=== PATIENT | female | born 1960 | race Caucasian/White ===

== ENCOUNTER → 2020-07-25 16:35 | Outpatient (CLI) | payer OTHER, SELFPAY ==
[2020-07-25 17:42] LABS: Hematocrit 40.4 % (37-47); Mean Corp Hgb Conc 32.2 g/dL (32-36); Mean Corpuscular Hgb 27.7 pg (27.0-32.0); Mean Platelet Vol. 9.7 fl (6.2-12.0); Platelet Count 213 K/mm3 (150-450); RBC Distribution Width CV 14.7 % (11.6-14.6); RBC Distribution Width SD 46.1 fl (35.1-43.9); White Blood Count 10.1 K/mm3 (4.4-11.0)
[2020-07-25 18:14] LABS: Erythrocyte Sedimentation Rate 41 mm/hr (0-30)
== END ==
PROVIDERS: PCP General Practice; Referring Provider Ophthalmology; Visit Provider Ophthalmology
DX: H49.22 Sixth [abducent] nerve palsy, left eye (principal)
CPT/HCPCS: 36415; 85027; 85652; 86140

== ENCOUNTER → 2020-08-21 13:53 | Outpatient (CLI) | payer OTHER, SELFPAY ==
[2020-08-21 15:47] LABS: Erythrocyte Sedimentation Rate 13 mm/hr (0-30)
== END ==
PROVIDERS: PCP General Practice; Referring Provider Ophthalmology; Visit Provider Ophthalmology
DX: H49.22 Sixth [abducent] nerve palsy, left eye (principal)
CPT/HCPCS: 36415; 85652; 86140

== ENCOUNTER → 2024-10-26 05:00 | Outpatient (REF) | payer MEDICAID, SELFPAY ==
[2024-10-26 08:44] LABS: Cholesterol 87 mg/dL (200); High Density Lipoprotein 44 mg/dL; Triglycerides 100 mg/dL; Very Low Density Lipoprotein 20 mg/dL (5-40)
== END ==
LOC: OLS.ACH 05:00
PROVIDERS: PCP General Practice; Visit Provider Internal Medicine
DX: E11.622 Type 2 diabetes mellitus with other skin ulcer (principal); L97.811 Non-pressure chronic ulcer of other part of right lower leg limited to breakdown of skin
CPT/HCPCS: 36415; 80061

== ENCOUNTER → 2024-10-30 02:00 | Outpatient (REF) | payer MEDICAID, SELFPAY ==
[2024-10-30 10:32] LABS: Microalbumin,Random Urine 89.4 mg/L (NO RANGE EST.); Microalbumin:Creatinine Ratio 214.4 mg/g CRE (<30 mg/g CRE)
== END ==
LOC: OLS.ACH 02:00
PROVIDERS: PCP General Practice; Visit Provider Internal Medicine
DX: L97.811 Non-pressure chronic ulcer of other part of right lower leg limited to breakdown of skin (principal); E11.622 Type 2 diabetes mellitus with other skin ulcer
CPT/HCPCS: 82043; 82570

== ENCOUNTER → 2024-11-03 | Outpatient (REF) | payer MEDICAID, SELFPAY ==
[2024-11-03 08:20] LABS: Hematocrit 29.4 % (37-47); Hemoglobin 8.9 g/dL (12.0-15.0); Mean Corp Hgb Conc 30.3 g/dL (32-36); Mean Corpuscular Hgb 24.3 pg (27.0-32.0); Mean Corpuscular Volume 80.3 fL (81-99); Mean Platelet Vol. 8.8 fl (6.2-12.0); Platelet Count 317 K/mm3 (150-450); RBC Distribution Width CV 17.9 % (11.6-14.6); RBC Distribution Width SD 53.3 fl (35.1-43.9); Red Blood Count 3.66 M/mm3 (4.2-5.4); White Blood Count 11.1 K/mm3 (4.4-11.0)
[2024-11-03 08:37] LABS: ALB/GLOB Ratio 0.7 RATIO (0.9-2.4); AST(SGOT) 26 U/L (<=31); Alanine Aminotransfer ALT/SGPT 16 U/L (<=34); Albumin, Serum 3.1 g/dL (3.4-4.8); Alkaline Phosphatase 189 U/L (35-104); Anion Gap 10 (5-15); BUN 29 mg/dL (4-19); BUN/Creat Ratio 37.8 RATIO (10-20); Calcium 9.2 mg/dL (7.6-11.0); Carbon Dioxide 26.3 mmol/L (22.0-29.0); Chloride 100 mmol/L (96-108); Creatinine, Serum 0.76 mg/dL (0.70-1.20); EST Glomerular Filtration Rate 87 (>60); Globulin 4.3 g/dL (2.2-4.2); Glucose 147 mg/dL (70-99); Potassium 4.5 mmol/L (3.3-5.1); Protein, Total 7.3 g/dL (5.9-8.4); Sodium Level 136 mmol/L (133-145); Total Bilirubin 0.23 mg/dL (0.00-1.30)
== END | disposition home or self-care (01) ==
LOC: OLS.ACH2 05:00
PROVIDERS: PCP General Practice; Visit Provider Internal Medicine
DX: E11.622 Type 2 diabetes mellitus with other skin ulcer (principal); D64.9 Anemia, unspecified; I11.0 Hypertensive heart disease with heart failure; I50.9 Heart failure, unspecified; I73.9 Peripheral vascular disease, unspecified
CPT/HCPCS: 36415; 80053; 85027

== ENCOUNTER → 2024-11-06 | Outpatient (REF) | payer MEDICAID, SELFPAY ==
[2024-11-06 09:18] LABS: Hematocrit 30.7 % (37-47); Hemoglobin 9.4 g/dL (12.0-15.0); Mean Corp Hgb Conc 30.6 g/dL (32-36); Mean Corpuscular Hgb 24.7 pg (27.0-32.0); Mean Corpuscular Volume 80.6 fL (81-99); Mean Platelet Vol. 8.8 fl (6.2-12.0); Platelet Count 290 K/mm3 (150-450); RBC Distribution Width CV 18.1 % (11.6-14.6); RBC Distribution Width SD 53.2 fl (35.1-43.9); Red Blood Count 3.81 M/mm3 (4.2-5.4); White Blood Count 9.9 K/mm3 (4.4-11.0)
== END | disposition home or self-care (01) ==
LOC: OLS.ACH2 05:00
PROVIDERS: PCP General Practice; Visit Provider Internal Medicine
DX: L97.811 Non-pressure chronic ulcer of other part of right lower leg limited to breakdown of skin (principal)
CPT/HCPCS: 36415; 85027

== ENCOUNTER → 2024-12-25 | Outpatient (REF) | payer OTHER, SELFPAY ==
[2024-12-25 09:26] LABS: Absolute Lymphocyte Count 1.38 X10^3/uL (0.83-4.51); Basophil# 0.09 X10^3/uL; Eosinophil# 0.39 X10^3/uL; Eosinophils% 4.4 % (0-5); Hematocrit 30.5 % (37-47); Hemoglobin 9.6 g/dL (12.0-15.0); Lymphocyte # 1.38 X10^3/ul (0.83-4.51); Lymphocyte % 15.7 % (19-41); Mean Corp Hgb Conc 31.5 g/dL (32-36); Mean Corpuscular Hgb 24.7 pg (27.0-32.0); Mean Corpuscular Volume 78.4 fL (81-99); Mean Platelet Vol. 9.2 fl (6.2-12.0); Monocyte# 0.84 X10^3/uL; Monocyte% 9.6 % (0-10); NRBC Flagged by Analyzer 0 % (0-5); Neutrophil # 6.04 X10^3/uL (2.7-7.7); Platelet Count 260 K/mm3 (150-450); RBC Distribution Width CV 17.8 % (11.6-14.6); RBC Distribution Width SD 50.9 fl (35.1-43.9); Red Blood Count 3.89 M/mm3 (4.2-5.4); White Blood Count 8.8 K/mm3 (4.4-11.0)
[2024-12-25 09:42] LABS: Erythrocyte Sedimentation Rate 74 mm/hr (0-30)
[2024-12-25 10:05] LABS: Alanine Aminotransfer ALT/SGPT 12 U/L (<=34); Creatinine, Serum 0.93 mg/dL (0.70-1.20); EST Glomerular Filtration Rate 69 (>60)
[2024-12-25 10:06] LABS: Vancomycin, Trough Level 33.5 ug/mL (5.0-15.0)
== END ==
LOC: OLS.ACH 05:00
PROVIDERS: PCP General Practice; Visit Provider Internal Medicine
DX: M86.671 Other chronic osteomyelitis, right ankle and foot (principal); E11.622 Type 2 diabetes mellitus with other skin ulcer; D64.9 Anemia, unspecified; L98.499 Non-pressure chronic ulcer of skin of other sites with unspecified severity; E11.69 Type 2 diabetes mellitus with other specified complication
CPT/HCPCS: 36415; 80202; 82565; 84460; 85025; 85652; 86140

== ENCOUNTER → 2024-12-27 | Outpatient (REF) | payer OTHER, SELFPAY ==
[2024-12-27 09:12] LABS: Absolute Lymphocyte Count 1.38 X10^3/uL (0.83-4.51); Absolute Neutrophil Count 7.6 X10^3/uL (2.0-7.7); Basophil# 0.08 X10^3/uL; Basophil% 0.7 % (0-1); Eosinophil# 0.49 X10^3/uL; Eosinophils% 4.6 % (0-5); Hematocrit 29.4 % (37-47); Hemoglobin 9.2 g/dL (12.0-15.0); Lymphocyte # 1.38 X10^3/ul (0.83-4.51); Lymphocyte % 12.9 % (19-41); Mean Corp Hgb Conc 31.3 g/dL (32-36); Mean Corpuscular Hgb 24.9 pg (27.0-32.0); Mean Corpuscular Volume 79.5 fL (81-99); Mean Platelet Vol. 9.2 fl (6.2-12.0); Monocyte# 1.17 X10^3/uL; Monocyte% 10.9 % (0-10); NRBC Flagged by Analyzer 0 % (0-5); Neutrophil # 7.55 X10^3/uL (2.7-7.7); Neutrophil % 70.4 % (47-70); Platelet Count 223 K/mm3 (150-450); RBC Distribution Width CV 17.9 % (11.6-14.6); RBC Distribution Width SD 52.1 fl (35.1-43.9); White Blood Count 10.7 K/mm3 (4.4-11.0)
[2024-12-27 09:35] LABS: Anion Gap 9 (5-15); BUN 21 mg/dL (4-19); BUN/Creat Ratio 29.5 RATIO (10-20); Calcium,Total 8.8 mg/dL (7.6-11.0); Carbon Dioxide 23.8 mmol/L (21.0-32.0); Chloride 103 mmol/L (98-108); Creatinine, Serum 0.72 mg/dL (0.70-1.20); EST Glomerular Filtration Rate 93 (>60); Glucose 90 mg/dL (70-99); Potassium 3.9 mmol/L (3.3-5.1); Sodium Level 136 mmol/L (133-145)
[2024-12-27 09:46] LABS: Vancomycin, Random Level 15.5 ug/mL (0.0-15.0)
== END ==
LOC: OLS.ACH 05:00
PROVIDERS: PCP General Practice; Visit Provider Internal Medicine
DX: E11.622 Type 2 diabetes mellitus with other skin ulcer (principal); D64.9 Anemia, unspecified
CPT/HCPCS: 36415; 80048; 80202; 85025

== ENCOUNTER → 2025-01-01 | Outpatient (REF) | payer OTHER, SELFPAY ==
[2025-01-01 09:00] LABS: Erythrocyte Sedimentation Rate 67 mm/hr (0-30)
[2025-01-01 09:02] LABS: Absolute Lymphocyte Count 1.31 X10^3/uL (0.83-4.51); Absolute Neutrophil Count 6.3 X10^3/uL (2.0-7.7); Basophil# 0.05 X10^3/uL; Basophil% 0.5 % (0-1); Eosinophil# 0.48 X10^3/uL; Eosinophils% 5.2 % (0-5); Hematocrit 28.8 % (37-47); Lymphocyte # 1.31 X10^3/ul (0.83-4.51); Lymphocyte % 14.3 % (19-41); Mean Corp Hgb Conc 31.3 g/dL (32-36); Mean Corpuscular Hgb 25.1 pg (27.0-32.0); Mean Corpuscular Volume 80.2 fL (81-99); Mean Platelet Vol. 9.4 fl (6.2-12.0); Monocyte# 0.97 X10^3/uL; Monocyte% 10.6 % (0-10); NRBC Flagged by Analyzer 0 % (0-5); Neutrophil # 6.32 X10^3/uL (2.7-7.7); Neutrophil % 69.1 % (47-70); Platelet Count 228 K/mm3 (150-450); RBC Distribution Width CV 19.1 % (11.6-14.6); RBC Distribution Width SD 54.5 fl (35.1-43.9); Red Blood Count 3.59 M/mm3 (4.2-5.4); White Blood Count 9.2 K/mm3 (4.4-11.0)
[2025-01-01 09:14] LABS: Alanine Aminotransfer ALT/SGPT 11 U/L (<=34); Creatinine, Serum 0.71 mg/dL (0.70-1.20); EST Glomerular Filtration Rate 94 (>60)
[2025-01-01 09:40] LABS: Vancomycin, Trough Level 17.1 ug/mL (5.0-15.0)
== END ==
LOC: OLS.ACH 05:00
PROVIDERS: PCP General Practice; Visit Provider Internal Medicine
DX: Z16.22 Resistance to vancomycin related antibiotics (principal)
CPT/HCPCS: 36415; 80202; 82565; 84460; 85025; 85652; 86140

== ENCOUNTER → 2025-01-08 | Outpatient (REF) | payer OTHER, SELFPAY ==
[2025-01-08 10:10] LABS: Vancomycin, Trough Level 34.1 ug/mL (5.0-15.0)
[2025-01-08 10:27] LABS: Alanine Aminotransfer ALT/SGPT 11 U/L (<=34); Creatinine, Serum 0.67 mg/dL (0.70-1.20); EST Glomerular Filtration Rate 98 (>60)
[2025-01-08 11:43] LABS: Erythrocyte Sedimentation Rate 60 mm/hr (0-30)
[2025-01-08 11:47] LABS: Absolute Lymphocyte Count 1.04 X10^3/uL (0.83-4.51); Absolute Neutrophil Count 8.1 X10^3/uL (2.0-7.7); Basophil# 0.03 X10^3/uL; Basophil% 0.3 % (0-1); Eosinophil# 1.08 X10^3/uL; Eosinophils% 9.5 % (0-5); Hemoglobin 8.8 g/dL (12.0-15.0); Lymphocyte # 1.04 X10^3/ul (0.83-4.51); Lymphocyte % 9.2 % (19-41); Mean Corp Hgb Conc 31.4 g/dL (32-36); Mean Corpuscular Volume 79.5 fL (81-99); Mean Platelet Vol. 9.2 fl (6.2-12.0); Monocyte# 1.05 X10^3/uL; Monocyte% 9.3 % (0-10); NRBC Flagged by Analyzer 0 % (0-5); Neutrophil # 8.08 X10^3/uL (2.7-7.7); Neutrophil % 71.3 % (47-70); POSITIVE MORPHOLOGY YES; Platelet Count 231 K/mm3 (150-450); RBC Distribution Width CV 20.3 % (11.6-14.6); RBC Distribution Width SD 58.6 fl (35.1-43.9); Red Blood Count 3.52 M/mm3 (4.2-5.4); White Blood Count 11.3 K/mm3 (4.4-11.0)
[2025-01-08 11:58] LABS: Differential Indicated SCAN CRITERIA MET
[2025-01-08 13:39] LABS: Anisocytosis 1+; Platelet Estimate A (ADEQ); Polychromasia 1+
== END ==
LOC: OLS.ACH 05:00
PROVIDERS: PCP General Practice; Visit Provider Internal Medicine
DX: E11.622 Type 2 diabetes mellitus with other skin ulcer (principal); D64.9 Anemia, unspecified; M86.171 Other acute osteomyelitis, right ankle and foot
CPT/HCPCS: 36415; 80202; 82565; 84460; 85025; 85652; 86140

== ENCOUNTER → 2025-01-09 | Outpatient (REF) | payer OTHER, SELFPAY ==
[2025-01-09 09:12] LABS: Vancomycin, Trough Level 18.9 ug/mL (5.0-15.0)
== END ==
LOC: OLS.ACH 05:00
PROVIDERS: PCP General Practice; Visit Provider Internal Medicine
DX: E11.22 Type 2 diabetes mellitus with diabetic chronic kidney disease (principal); D64.9 Anemia, unspecified; B95.62 Methicillin resistant Staphylococcus aureus infection as the cause of diseases classified elsewhere; N18.9 Chronic kidney disease, unspecified
CPT/HCPCS: 36415; 80202

== ENCOUNTER → 2025-01-15 | Outpatient (REF) | payer OTHER, SELFPAY ==
[2025-01-15 10:11] LABS: Erythrocyte Sedimentation Rate 74 mm/hr (0-30); Vancomycin, Trough Level 18.7 ug/mL (5.0-15.0)
[2025-01-15 10:13] LABS: Absolute Lymphocyte Count 0.84 X10^3/uL (0.83-4.51); Absolute Neutrophil Count 6.3 X10^3/uL (2.0-7.7); Basophil# 0.04 X10^3/uL; Basophil% 0.4 % (0-1); Eosinophil# 1.04 X10^3/uL; Eosinophils% 11.5 % (0-5); Hematocrit 27.3 % (37-47); Hemoglobin 8.7 g/dL (12.0-15.0); Lymphocyte # 0.84 X10^3/ul (0.83-4.51); Lymphocyte % 9.3 % (19-41); Mean Corp Hgb Conc 31.9 g/dL (32-36); Mean Corpuscular Hgb 25.9 pg (27.0-32.0); Mean Corpuscular Volume 81.3 fL (81-99); Mean Platelet Vol. 9.7 fl (6.2-12.0); Monocyte# 0.83 X10^3/uL; Monocyte% 9.2 % (0-10); NRBC Flagged by Analyzer 0 % (0-5); Neutrophil # 6.25 X10^3/uL (2.7-7.7); Neutrophil % 69.2 % (47-70); POSITIVE MORPHOLOGY YES; Platelet Count 229 K/mm3 (150-450); RBC Distribution Width CV 21.2 % (11.6-14.6); RBC Distribution Width SD 62.5 fl (35.1-43.9); Red Blood Count 3.36 M/mm3 (4.2-5.4)
[2025-01-15 10:14] LABS: Differential Indicated SCAN CRITERIA MET
[2025-01-15 10:19] LABS: Alanine Aminotransfer ALT/SGPT 11 U/L (<=34); Creatinine, Serum 0.72 mg/dL (0.70-1.20); EST Glomerular Filtration Rate 94 (>60)
[2025-01-15 10:38] LABS: Anisocytosis 1+
== END ==
LOC: OLS.ACH 05:00
PROVIDERS: PCP General Practice; Visit Provider Internal Medicine
DX: E11.69 Type 2 diabetes mellitus with other specified complication (principal); E11.622 Type 2 diabetes mellitus with other skin ulcer; M86.671 Other chronic osteomyelitis, right ankle and foot; D64.9 Anemia, unspecified; Z16.22 Resistance to vancomycin related antibiotics
CPT/HCPCS: 36415; 80202; 82565; 84460; 85025; 85652; 86140

== ENCOUNTER → 2025-01-22 | Outpatient (REF) | payer OTHER, SELFPAY ==
[2025-01-22 08:51] LABS: Vancomycin, Trough Level 19.3 ug/mL (5.0-15.0)
[2025-01-22 08:53] LABS: Alanine Aminotransfer ALT/SGPT 10 U/L (<=34); Creatinine, Serum 0.65 mg/dL (0.70-1.20); EST Glomerular Filtration Rate 98 (>60)
[2025-01-22 08:56] LABS: Erythrocyte Sedimentation Rate 66 mm/hr (0-30)
[2025-01-22 08:59] LABS: Absolute Lymphocyte Count 0.91 X10^3/uL (0.83-4.51); Absolute Neutrophil Count 8.3 X10^3/uL (2.0-7.7); Basophil# 0.04 X10^3/uL; Basophil% 0.4 % (0-1); Eosinophil# 0.69 X10^3/uL; Eosinophils% 6.1 % (0-5); Hemoglobin 8.6 g/dL (12.0-15.0); Lymphocyte # 0.91 X10^3/ul (0.83-4.51); Lymphocyte % 8.1 % (19-41); Mean Corp Hgb Conc 31.9 g/dL (32-36); Mean Corpuscular Volume 81.6 fL (81-99); Mean Platelet Vol. 9.6 fl (6.2-12.0); Monocyte# 1.29 X10^3/uL; Monocyte% 11.4 % (0-10); NRBC Flagged by Analyzer 0 % (0-5); Neutrophil # 8.28 X10^3/uL (2.7-7.7); Neutrophil % 73.5 % (47-70); POSITIVE MORPHOLOGY YES; Platelet Count 242 K/mm3 (150-450); RBC Distribution Width CV 21.7 % (11.6-14.6); RBC Distribution Width SD 64.4 fl (35.1-43.9); Red Blood Count 3.31 M/mm3 (4.2-5.4); White Blood Count 11.3 K/mm3 (4.4-11.0)
[2025-01-22 09:12] LABS: Differential Indicated SCAN CRITERIA MET
[2025-01-22 10:11] LABS: Anisocytosis 1+
== END ==
LOC: OLS.ACH 05:00
PROVIDERS: PCP General Practice; Visit Provider Internal Medicine
DX: M86.671 Other chronic osteomyelitis, right ankle and foot (principal); E11.622 Type 2 diabetes mellitus with other skin ulcer; D64.9 Anemia, unspecified; Z16.22 Resistance to vancomycin related antibiotics
CPT/HCPCS: 36415; 80202; 82565; 84460; 85025; 85652; 86140

== ENCOUNTER → 2025-01-30 | Outpatient (REF) | payer OTHER, SELFPAY ==
[2025-01-30 09:19] LABS: Vancomycin, Trough Level 18.6 ug/mL (5.0-15.0)
[2025-01-30 09:22] LABS: ALB/GLOB Ratio 0.8 RATIO (0.9-2.4); AST(SGOT) 27 U/L (<=31); Alanine Aminotransfer ALT/SGPT 10 U/L (<=34); Albumin, Serum 2.8 g/dL (3.4-4.8); Alkaline Phosphatase 214 U/L (35-104); Anion Gap 9 (5-15); BUN 23 mg/dL (4-19); BUN/Creat Ratio 40.3 RATIO (10-20); Calcium,Total 8.7 mg/dL (7.6-11.0); Carbon Dioxide 24.9 mmol/L (21.0-32.0); Chloride 104 mmol/L (98-108); Creatinine, Serum 0.56 mg/dL (0.70-1.20); EST Glomerular Filtration Rate 102 (>60); Globulin 3.6 g/dL (2.2-4.2); Glucose 102 mg/dL (70-99); Potassium 3.6 mmol/L (3.3-5.1); Protein, Total 6.4 g/dL (5.9-8.4); Sodium Level 138 mmol/L (133-145); Total Bilirubin 0.27 mg/dL (0.00-1.30)
[2025-01-30 09:38] LABS: Absolute Lymphocyte Count 0.96 X10^3/uL (0.83-4.51); Absolute Neutrophil Count 7.1 X10^3/uL (2.0-7.7); Basophil# 0.01 X10^3/uL; Basophil% 0.1 % (0-1); Eosinophil# 0.61 X10^3/uL; Eosinophils% 6.1 % (0-5); Hemoglobin 9.5 g/dL (12.0-15.0); Lymphocyte # 0.96 X10^3/ul (0.83-4.51); Lymphocyte % 9.6 % (19-41); Mean Corp Hgb Conc 31.7 g/dL (32-36); Mean Corpuscular Hgb 26.1 pg (27.0-32.0); Mean Corpuscular Volume 82.4 fL (81-99); Mean Platelet Vol. 9.6 fl (6.2-12.0); NRBC Flagged by Analyzer 0 % (0-5); Neutrophil # 7.07 X10^3/uL (2.7-7.7); Neutrophil % 70.8 % (47-70); POSITIVE MORPHOLOGY YES; Platelet Count 229 K/mm3 (150-450); RBC Distribution Width CV 21.5 % (11.6-14.6); RBC Distribution Width SD 64.1 fl (35.1-43.9); Red Blood Count 3.64 M/mm3 (4.2-5.4)
[2025-01-30 09:39] LABS: Erythrocyte Sedimentation Rate 72 mm/hr (0-30)
[2025-01-30 09:43] LABS: Differential Indicated SCAN CRITERIA MET
[2025-01-30 11:51] LABS: Anisocytosis 1+; Platelet Estimate A (ADEQ); Polychromasia 1+
== END ==
LOC: OLS.ACH 05:00
PROVIDERS: PCP General Practice; Visit Provider Internal Medicine
DX: D64.9 Anemia, unspecified (principal); E11.622 Type 2 diabetes mellitus with other skin ulcer; M86.671 Other chronic osteomyelitis, right ankle and foot; E11.22 Type 2 diabetes mellitus with diabetic chronic kidney disease; I13.0 Hypertensive heart and chronic kidney disease with heart failure and stage 1 through stage 4 chronic kidney disease, or unspecified chronic kidney disease; I50.9 Heart failure, unspecified; N18.9 Chronic kidney disease, unspecified
CPT/HCPCS: 36415; 80053; 80202; 85025; 85652; 86140

== ENCOUNTER → 2025-02-13 | Outpatient (REF) | payer OTHER, SELFPAY ==
--- OUTSIDE RECORDS SUMMARY | 2025-02-13 04:33 | XMS RPT_ITS | CCD ---
Author Organization [facility] Care Team Providers Care Brokerage Coordinator Name Role Phone Rick Foster Unavailable Unavailable PROVIDER, UNKNOWN Unavailable Unavailable Alvina Chang Unavailable Unavailable PROVIDER, UNKNOWN Unavailable Unavailable PROVIDER, UNKNOWN Unavailable Unavailable Alvina Chang Unavailable Unavailable ALVINA SULLIVAN Referring Unavailable ALVINA SULLIVAN Primary Care Unavailable Unavailable Primary Care Provider Alvina Mccormick Unavailable Unavailable Unavailable Alvina Sullivan Primary Care Provider [phone] Unavailable Unavailable Alvina Sullivan Primary Care Provider Nate, Dr. Alvina Edward Referring Unavailabl e Nate, Dr. Alvina Edward Primary Care Unavailabl e Lani, Dr. Dyson Attending Unavail able Nate, Dr. Alvina Edward Referring Unavailabl e Nate, Dr. Alvina Edward Primary Care Unavailabl e Lani, Dr. Dyson Attending Unavail able Lani, Dr. Dyson Attending Unavail able Lani, Dr. Dyson Referring Unavail able Nate, Dr. Alvina Edward Primary Care Unavailabl e Nilsa Hearn Referring Unavailable Nate, Dr. Alvina Edward Primary Care Unavailabl e Tho, Ms. Gertrude Key Attending Unavailable Nilsa Hearn Attending Unavailable Nate, Dr. Alvina Edward Primary Care Unavailabl e Nate, Dr. Alvina Edward Referring Unavailabl e Nate, Dr. Alvina Edward Primary Care Unavailabl e Nate, Dr. Alvina Edward Attending Unavailabl e Nate, Dr. Alvina Edward Referring Unavailabl e Nate, Dr. Alvina Edward Primary Care Unavailabl e Nate, Dr. Alvina Edward Attending Unavailabl e Nate, Dr. Alvina Edward Referring Unavailabl e Jerardoelisha, Dr. Dyson Attending Unavail able Nate, Dr. Alvina Edward Primary Care Unavailabl e Nate, Alvina Edward Primary Care Provider [phone] Jairo DO, [place] Primary Care Provider Jairo DO, [place] Primary Care Provider Viktoriya DO, Olegario Haque Unavailable Viktoriya DO, Olegario Haque Unavailable Jairo DO, [place] Primary Care Provider Jairo DO, [place] Primary Care Provider Dennis VILLANUEVA.DEBORAH, Afsaneh Unavailable TANISHA, HAMLET Referring Unavailable TANISHA, HAMLET Attending Unavailable JAIRO, VINCENT Primary Care Unavailable TANISHA, HAMLET Referring Unavailable TANISHA, HAMLET Attending Unavailable JAIRO, VINCENT Primary Care Unavailable TANISHA, HAMLET Referring Unavailable TANISHA, HAMLET Attending Unavailable JAIRO, VINCENT Primary Care Unavailable TANISHA, HAMLET Referring Unavailable JAIRO, VINCENT Primary Care Unavailable TANISHA, HAMLET Attending Unavailable HAYDER COOLEY Attending Unavailable JAIRO, VINCENT Primary Care Unavailable TANISHA, HAMLET Referring Unavailable JAIRO, VINCENT Primary Care Unavailable TANISHA, HAMLET Attending Unavailable Jairo DO, Vincent Primary Care Provider JAIRO, VINCENT Primary Care Unavailable [id number] QUINN Attending Unavailable [id number] Referring Unavailable JAIRO, VINCENT Primary Care Unavailable TANISHA, HAMLET Attending Unavailable SELF Referring Unavailable JAIRO, VINCENT Primary Care Unavailable RA-ALFREDO RUSHING Attending Unavailable RA-ALFREDO RUSHING Referring Unavailable Nate MD, Dr. Alvina Edward Primary Care Provider Ana Cristina HAMMOND, Donavon Attending Provider Unavailable de Garrett Sr., Donavon Paty Primary Care Provider Reece FINANCIAL REPORTING ANALYST.DEBORAH, Shanel Key Unavailable [phone] Olegario Sadler DO Unavailable Escobedo Sr., Donavon Paty Primary Care Provider Nate HAMMOND, Dr. Alvina Edward Primary Care Provider Ana Cristina HAMMOND, Donavon Attending Provider Unavailable JAIRO, VINCENT Primary Care Unavailable JAIRO, VINCENT Attending Unavailable JAIRO, VINCENT Primary Care Unavailable JAIRO, VINCENT Primary Care Unavailable SHANEL NEWELL Attending Unavailable JAIRO, VINCENT Primary Care Unavailable BERNY REYES Unavailable JAIRO, VINCENT Primary Care Unavailable JAIRO, VINCENT Primary Care Unavailable GIOVANNI CERRATO Attending Unavailabl e JAIRO, VINCENT Primary Care Unavailable JAIRO, VINCENT Primary Care Unavailable GIOVANNI CERRATO Attending Unavailabl e JAIRO, VINCENT Primary Care Unavailable SHANEL NEWELL Attending Unavailable JAIRO, VINCENT Primary Care Unavailable Nate, Anita Primary Care Unavailable Deperro OLS, Donavon Attending Unavailable Nate, Anita Primary Care Unavailable Deperro OLS, Donavon Attending Unavailable Nate, Anita Primary Care Unavailable Deperro OLS, Donavon Attending Unavailable Nate, Anita Primary Care Unavailable Deperro OLS, Donavon Attending Unavailable Nate, Anita Primary Care Unavailable Deperro OLS, Donavon Attending Unavailable Nate, Anita Primary Care Unavailable Deperro OLS, Donavon Attending Unavailable Nate, Anita Primary Care Unavailable Deperro OLS, Donavon Attending Unavailable Nate, Anita Primary Care Unavailable Deperro OLS, Donavon Attending Unavailable Nate, Anita Primary Care Unavailable Deperro OLS, Donavon Attending Unavailable Nate, Anita Primary Care Unavailable Deperro OLS, Donavon Attending Unavailable Nate, Anita Primary Care Unavailable Deperro OLS, Donavon Attending Unavailable Nate, Anita Primary Care Unavailable Deperro OLS, Donavon Attending Unavailable Nate, Anita Primary Care Unavailable Deperro OLS, Donavon Attending Unavailable Nate, Anita Primary Care Unavailable Deperro OLS, Donavon Attending Unavailable Nate, Anita Primary Care Unavailable Deperro OLS, Donavon Attending Unavailable Nate, Anita Primary Care Unavailable Deperro OLS, Donavon Attending Unavailable NEERAJ, HU Attending Unavailable JAIRO, VINCENT Primary Care Unavailable NEERAJ, HU Attending Unavailable BERNY REYES Attending Unavailable JAIRO, VINCENT Primary Care Unavailable HAMMBERNY CORRAL Attending Unavailable JAIRO, VINCENT Primary Care Unavailable NEERAJ, HU Referring Unavailable NEERAJ, HU Referring Unavailable NEERAJ, HU Referring Unavailable DE GARRETT SR, DONAVON NEWMAN Primary Care Unavaila ble NEERAJ, HU Referring Unavailable NEERAJ, HU Referring Unavailable NEERAJ, HU Attending Unavailable NEERAJ, HU Referring Unavailable NEERAJ, HU Attending Unavailable NEERAJ, HU Referring Unavailable NEERAJ, HU Referring Unavailable NEERAJ, HU Referring Unavailable NEERAJ, HU Referring Unavailable NEERAJ, HU Referring Unavailable NEERAJ, HU Referring Unavailable NEERAJ, HU Referring Unavailable NEERAJ, HU Referring Unavailable NEERAJ, HU Referring Unavailable NEERAJ, HU Referring Unavailable HAMMERBERNY Attending Unavailable JAIRO, VINCENT Primary Care Unavailable FRANKY BARNES Attending Unavailable NEERAJ, HU Referring Unavailable JAIRO, ELDON Referring Unavailable JAIRO, VINCENT Primary Care Unavailable BERNY REYES Attending Unavailable JAIRO, VINCENT Primary Care Unavailable FRANKY BARNES Attending Unavailable NEERAJ, HU Referring Unavailable DE GARRETT SR, DONAVON NEWMAN Primary Care Unavaila ble NEERAJ, HU Attending Unavailable DE GARRETT SR, DONAVON NEWMAN Referring Unavaila ble NEERAJ, HU Attending Unavailable JAIRO, VINCENT Primary Care Unavailable NEERAJ, HU Attending Unavailable NEERAJ, HU Attending Unavailable NEERAJ, HU Attending Unavailable AYAN WALLIS Attending Unavailable JAIRO, VINCENT Primary Care Unavailable BERNY REYES Attending Unavailable JAIRO, VINCENT Primary Care Unavailable BERNY REYES Attending Unavailable JAIRO, VINCENT Primary Care Unavailable BERNY REYES Attending Unavailable JAIRO, VINCENT Primary Care Unavailable BERNY REYES Attending Unavailable JAIRO, VINCENT Primary Care Unavailable NEERAJ, HU Referring Unavailable DE GARRETT SR, DONAVON PATY Primary Care Unavaila ble NEERAJ, HU Referring Unavailable DE GARRETT SR, DONAVON [facility] Primary Care Unavaila ble NEERAJ, HU Referring Unavailable SELF Referring Unavailable NEERAJ, HU Attending Unavailable BERNY ERYES Attending Unavailable [facility] Care Unavailable BERNY REYES Attending Unavailable [facility] Primary Care Unavailable SHANEL NEWELL Referring Unavailable AYAN WALLIS Attending Unavailable MARYLOU MCCLELLAN Referring Unavailable NEERAJ, HU Referring Unavailable NEERAJ, HU Admitting Unavailable NEERAJ, HU Attending Unavailable SELF Referring Unavailable SHANEL NEWELL Referring Unavailable NEERAJ, HU Attending Unavailable NEERAJ, HU Attending Unavailable NEERAJ, HU Attending Unavailable NEERAJ, HU Referring Unavailable NEERAJ, HU Referring Unavailable NEERAJ, HU Referring Unavailable [facility] Care Unavailable AURELIA GRIMES Admitting Unavailable JAYLON FISHER Attending Unavailable MICKEY SPANGLER Consulting Unavailable [facility] Care Unavailable NATHANAEL MATOS Attending Unavailable NEERAJ, HU Referring Unavailable NEERAJ, HU Referring Unavailable NEERAJ, HU Referring Unavailable NEERAJ, HU Referring Unavailable NEERAJ, HU Referring Unavailable NEERAJ, HU Referring Unavailable NEERAJ, HU Referring Unavailable NEERAJ, HU Referring Unavailable NEERAJ, HU Referring Unavailable NEERAJ, HU Referring Unavailable NEERAJ, HU Referring Unavailable NEERAJ, HU Referring Unavailable NEERAJ, HU Referring Unavailable NEERAJ, HU Referring Unavailable NEERAJ, HU Referring Unavailable NEERAJ, HU Referring Unavailable NEERAJ, HU Referring Unavailable NEERAJ, HU Referring Unavailable NEERAJ, HU Referring Unavailable NEERAJ, HU Referring Unavailable NEERAJ, HU Referring Unavailable NEERAJ, HU Referring Unavailable NEERAJ, HU Referring Unavailable NEERAJ, HU Referring Unavailable NEERAJ, HU Referring Unavailable NEERAJ, HU Referring Unavailable NEERAJ, HU Referring Unavailable NEERAJ, HU Referring Unavailable NEERAJ, HU Referring Unavailable NEERAJ, HU Referring Unavailable NEERAJ, HU Attending Unavailable NEERAJ, HU Attending Unavailable ZACH DEVI Admitting Unavailable ZACH DEVI Attending Unavailable NEERAJ, HU Admitting Unavailable NEERAJ, HU [facility]ending Un[facility] ROMAIN KENNY Admitting Unavailable ANTHONY KAM Attending Unavailable FRANKY BARNES Consulting Unavailable NEERAJ, HU Referring Unavailable NEERAJ, HU Referring Unavailable NEERAJ, HU Referring Unavailable NEERAJ, HU Referring Unavailable NEERAJ, HU Referring Unavailable NEERAJ, HU Referring Unavailable NEERAJ, HU Referring Unavailable NEERAJ, HU Referring Unavailable NEERAJ, HU Referring Unavailable NEERAJ, HU Referring Unavailable GIOVANNI CERRATO Referring Unavailabl e [facility] Unavailable AYAN WALLIS Attending Unavailable [facility] Unavailable AYAN WALLIS Attending Unavailable [facility] Unavailable BERNY REYES Attending Unavailable [facility] Unavailable Allergies Allergy Classification Reported Allergen(s) Allergy Type Date of Onset Reaction(s) Facility Opioid Agonists (8 sources) Codeine Drug Allergy 3 Intolerance [facility] Penicillins (antibiotic) (4 sources) Amoxicillin Drug Allergy 3 Unknown [facility] (1 source) Other Propensity to adverse reactions 8 [place], [place] (20 sources) Codeine; Translations: [CODEINE] Drug Allergy 3 Other: See Comments, Intolerance [facility] (20 sources) Amoxicillin; Translations: [AMOXICILLIN] Drug Allergy 3 Unknown [facility] (20 sources) Morphine; Translations: [MORPHINE] Drug Allergy 3 Other: See Comments, Intolerance [facility] (20 sources) Silicone; Translations: [SILICONE] Drug Intolerance 4 Rash, Itching [facility] Work Phone: Medications Current Medications Medication Drug Class(es) Dates Sig (Normalized) Sig (Original) acetaminophen 325 mg oral tablet (20 sources) Start: 08-02-2024 take 2 tablets by mouth every six hours as needed acetaminophen (TYLENOL) 325 mg tablet Take 2 tablets by mouth every 6 hours as needed for fever (specify temp.) or pain (temp >100.1F). 08/02/2024 Active Start: 08-20-2023 take 3 tablets by ia ut every six hours acetaminophen (TYLENOL) 325 mg tablet Take 3 tablets by mouth every 6 hours. 60 tablet 0 08/20/2023 Active Comment on above: Take 3 tablets by mo [facility] every 6 hours. ascorbic acid 500 mg oral tablet (20 sources) Vitamin C take 500 mg by mouth twice daily ascorbic acid (VITAMIN C ORAL) Take 500 mg by mouth two times a day. Active ascorbic acid (V ITAMIN C ORAL) Take by mouth. Suspended ascorbic acid (V ITAMIN C ORAL) Take by mouth. Active ascorbic acid (V ITAMIN C ORAL) Take by mouth. 0 Active take 1 tablet by mouth once maral y Ascorbic Acid 1,000 mg tablet Take 1,000 mg by mouth once daily. 0 Active Comment on above: Take 1,000 mg by lety th once daily. Take by mouth. aspirin 81 mg delayed release oral tablet (20 sources) Platelet Aggregation Inhibitor, Nonsteroidal Anti-inflammatory Drug take 1 tablet by mouth once daily aspirin, enteric coated (ASPIRIN, ENTERIC COATED) 81 mg EC tablet Take 81 mg by mouth once daily. Active Comment on above: Take 81 mg by mouth once daily. atorvastatin 80 mg oral tablet (20 sources) HMG-CoA Reductase Inhibitor Start: 12-02-19 End: 01-27-20 26 take 1 tablet by mouth once daily atorvastatin (LIPITOR) 80 mg tablet Indications: Mixed hyperlipidemia Take 1 tablet by mouth once daily. 90 tablet 3 01/26/2025 01/26/2026 Active Start: 09-16-2011 End: 04-22-2022 take 1 tablet by mouth once daily atorvastatin (LIPITOR) 20 mg tablet Indications: Mixed hyperlipidemia Take 1 tablet by mouth once daily. 90 tablet 3 02/10/2021 04/22/2022 Discontinued (Dosage adjustment) Start: 09-16-2011 End: 12-01-2022 take 1 tablet by mouth once daily at bedtime Atorvastatin Calcium 40 MG Oral Tablet TAKE 1 TABLET BY MOUTH EVERYDAY AT BEDTIME Quantity: 90 Refills: 0 Ordered: 27-Apr-2023 German Garibay MDshad Start : 16-Sep-2011 Active NEEDS APPOINTMENT FOR FURTHER REFILLS Comment on above: Take 1 tablet by lety th once daily. take 1 tablet by lety th every day bisacodyl 10 mg rectal suppository (20 sources) Stimulant Laxative take 10 mg rectal route once daily as needed for constipation bisacodyl (DULCOLAX) 10 mg supp 10 mg by RECTAL route once daily as needed for constipation. Active Blood Pressure Monitor (20 sources) Start: Blood Pressure Monitor Please monitor blood pressure 1-2 hours after taking morning medications. 1 Kit 12/24/2022 Suspended Start: 12-24-2022 Blood Pressure Monitor Please monitor blood pressure 1-2 hours after taking morning medications. 1 Kit 12/24/2022 Active Start: 12-24-2022 Blood Pressure Monitor Please monitor blood pressure 1-2 hours after taking morning medications. 1 Kit 0 12/24/2022 Active Start: 12-24-2022 End: 12-25-2022 Blood Pressure Monitor Pleas e monitor blood pressure 1-2 hours after taking morning medications. 1 Kit 0 12/24/2022 12/25/2022 Active Comment on above: Please monitor blood pressure 1-2 hours after taking morning medications. Blood-Glucose Meter misc (20 sources) Start: 08-06-2019 Blood-Glucose Meter misc Use to test blood glucose 3 times daily. Insulin Dependent E11.3299, E11.65, Z79.4 1 Each 08/06/2019 Suspended Start: 08-06-2019 Blood-Glucose Meter misc Use to test blood glucose 3 times daily. Insulin Dependent E11.3299, E11.65, Z79.4 1 Each 08/06/2019 Active Start: 08-06-2019 Blood-Glucose Meter misc Use to test blood glucose 3 times daily. Insulin Dependent E11.3299, E11.65, Z79.4 1 Each 0 08/06/2019 Active Comment on above: Use to test blood gl ucose 3 times daily. 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 28 capsule 0 10/28/2022 11/04/2022 Active Start: 09-26-2022 End: 10-03-2022 take 1 capsule by mouth four times daily cephALEXin (KEFLEX) 500 mg capsule Indications: Injury of finger of left hand, initial encounter Take 1 capsule by mouth four times daily for 7 days. 28 capsule 0 09/26/2022 10/03/2022 Active Comment on above: Take 1 capsule by mo [facility] four times daily for 7 days. cholecalciferol 0.05 mg oral capsule (20 sources) Vitamin D take 1 tablet by mouth once daily Cholecalciferol, Vitamin D3, 50 mcg (2,000 unit) cap Take 1 tablet by mouth once daily. Active Comment on above: [facility] c[facility]floxacin 500 mg oral tablet (14 sources) Quinolone Antimicrobial Start: 10-07-19 End: 10-14-19 take 1 tablet by mouth twice daily ciprofloxacin HCl (CIPRO) 500 mg tablet Take 1 tablet by mouth two times a day for 7 days. 14 tablet 0 10/07/2023 10/14/2023 Active Start: 01-13-2022 End: 11-17-2022 take 1 tablet by mouth twice daily ciprofloxacin HCl (CIPRO) 500 mg tablet Take 1 tablet by mouth twice daily for 7 days. 14 tablet 0 11/10/2022 11/17/2022 Active Comment on above: Take 1 tablet by lety twice daily for 14 days. Take 500 mg by mouth twice daily. Take 1 tablet by lety twice daily for 7 days. Take 1 tablet by lety two times a day for 7 days. docusate sodium 50 mg / sennosides, skilled nursing 8.6 mg oral tablet (20 sources) take 1 tablet by mouth once as needed for constipation senna-docusate (SENEXON-S) 8.6-50 mg per tablet Take 1 tablet by mouth as needed for constipation. Active doxycycline hyclate 100 mg oral capsule (12 sources) Tetracycline-cl ass Drug Start: End: take 1 capsule by mouth twice daily doxycycline hyclate (VIBRAMYCIN) 100 mg capsule Take 1 capsule by mouth two times a day for 7 days. 14 capsule 11/27/2024 12/04/2024 Active Start: 06-18-2023 End: 06-25-2023 take 1 capsule by mouth twice daily doxycycline hyclate (VIBRAMYCIN) 100 mg capsule Take 1 capsule by mouth two times a day for 7 days. 14 capsule 0 06/18/2023 06/25/2023 Active Start: 11-26-2022 End: 11-26-2022 take 1 capsule by mouth twice daily doxycycline hyclate (VIBRAMYCIN) 100 mg capsule Take 1 capsule by mouth twice daily for 7 days. 14 capsule 0 11/26/2022 11/26/2022 Discontinued (Erroneous entry) Start: 11-06-2022 End: 11-17-2022 take 1 capsule by mouth twice daily doxycycline hyclate (VIBRAMYCIN) 100 mg capsule Take 1 capsule by mouth twice daily for 7 days. 14 capsule 0 11/10/2022 11/17/2022 Active Comment on above: Take 1 capsule by [facility] twice daily for 7 days. Take 1 capsule by mo [facility] two times a day for 7 days. 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 90 tablet 3 03/23/2022 Active Start: 03-19-2022 take 1 tablet by lety th once daily Jardiance 10 MG Oral Tablet TAKE 1 TABLET BY MOUTH EVERY DAY Quantity: 90 Refills: 3 Ordered: 19-Mar-2022 Nadiya HAMMOND, Nilsa Start : 19-Mar-2022 Active Comment on above: Take 1 tablet by lety th daily with breakfast. take 1 tablet by lety th every day with breakfast enalapril maleate 20 mg oral tablet (20 sources) Angiotensin Converting Enzyme Inhibitor Start: 01-22-2025 take 0.5 tablet by mouth twice daily enalapril (VASOTEC) 20 mg tablet Take 0.5 tablets by mouth two times a day. 90 tablet 3 01/22/2025 Active Start: 12-17-2023 End: 01-18-2025 take 0.5 tablet by mouth twice daily enalapril (VASOTEC) 20 mg tablet Take 0.5 tablets by mouth two times a day. 12/17/2023 01/18/2025 Discontinued Start: 12-01-2023 End: 12-17-2023 take 1 tablet by mouth once daily enalapril (VASOTEC) 20 mg tablet Take 1 tablet by mouth once daily. 90 tablet 3 12/01/2023 12/17/2023 Discontinued Start: 09-16-2011 take 1 tablet by lety th once daily enalapril (VASOTEC) 10 mg tablet Indications: Essential hypertension Take 1 tablet by mouth once daily. 90 tablet 3 02/10/2021 Active Comment on above: Take 1 tablet by lety th once daily. Take 0.5 tablets by mouth two times a day. ferrous sulfate 325 mg delayed release oral tablet (20 sources) take 1 tablet by mouth once daily ferrous sulfate 325 mg (65 mg iron) EC tablet Take 325 mg by mouth once daily. Active End: 11-27-2024 take 1 tablet by mouth once daily ferrous sulfate 325 mg (65 mg iron) tablet Take 325 mg by mouth once daily. 11/27/2024 Discontinued (Other) fluticasone propionate 0.05 mg/actuat metered dose nasal spray (20 sources) Corticosteroid Start: 08-09-2023 End: 08-08-2024 take 2 spray(s) nasal route once daily fluticasone (FLONASE) 50 mcg/actuation nasal spray Use 2 Sprays in each nostril once daily. 1 Each 3 08/09/2023 08/08/2024 Active Comment on above: Use 2 Sprays in each nostril once daily. X 7 days then may use as needed for nasal congestion 1 spray each nostril as needed thereafter Use 2 Sprays in each nostril once daily. furosemide 20 mg oral tablet (20 sources) Loop Diuretic Start: 07-07-2024 End: 07-07-2024 furosemide 30 mg injection (LASIX) Start: 07-07-2024 End: 07-07-2024 30 mg, INTRAVENOUS, ONCE, 1 dose, On Wed07/07/24 at 1330 Start: 04-06-2023 take 2 tablets by mo [facility] once daily furosemide (LASIX) 20 mg tablet Take 2 tablets by mouth once daily. 0 04/06/2023 Active Start: 01-29-2022 End: 12-14-2024 take 1 tablet by mouth once daily furosemide (LASIX) 20 mg tablet Take 1 tablet by mouth once daily. 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 Take 0.5 tablet (20 mg) as needed 0 02/21/2023 Active Comment on above: Take 20 mg by mouth once daily. Take 40 mg by mouth once daily. Take 2 tablets by mo [facility] once daily. [facility] Take 0.5 tablet (20 mg) as needed Take 20 mg by mouth once daily. Take 20 mg daily x 7 days after 11/29/23 ED visit GLUCAGON EMERGENCY KIT, HUMAN, INJECTION (20 sources) GLUCAGON EMERGEN CY KIT, HUMAN, INJECTION by INJECTION(UNSPECIFIED PARENTERAL ROUTES) route. Suspended GLUCAGON EMERGEN CY KIT, HUMAN, INJECTION by INJECTION(UNSPECIFIED PARENTERAL ROUTES) route. 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 Greater than 400 give 5 units and notify provider. 15 mL 3 01/31/2025 Active Start: 08-24-2024 End: 01-25-2025 insulin lispro 100 unit/mL i njection Sliding scale- Blood sugar 111-150 Give 0 units 151-200 Give 1 unit 201-250 Give 2 units 251-300 Give 3 units 301-350 Give 4 units 351-400 Give 5 units Greater than 400 Give 5 units and Notify Provider 08/24/2024 01/25/2025 Discontinued 3 ml insulin, aspart, human 100 unt/ml pen injector (5 sources) Insulin Analog Start: 06-07-2017 insulin aspart (NOVOLOG) 100 UNIT/ML injection pen 30 units at breakfast, 30 units at lunch, 30 units at supper sc daily. 0 06/07/2017 Active Start: 07-27-2012 NovoLOG FlexPe n 100 UNIT/ML SOLN 10 units before breakfast, 30 units before lunch, and 30 units before dinner Quantity: 5 Refills: 0 Ordered: 27-Jul-2012 Alvina Sullivan MD Start : 27-Jul-2012 Active L.acidophilus-L.rhamnosus (PROBIOTIC) 15 billion cell capsule (20 sources) take 1 capsule by mouth once daily L.acidophilus-L.rhamnosus (PROBIOTIC) 15 billion cell capsule Take 1 capsule by mouth once daily. 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 90 tablet 3 04/17/2024 Suspended Start: 11-29-2023 End: 04-17-2024 take 1 tablet by mouth twice daily at mealtime metFORMIN (GLUCOPHAGE) 1,000 mg tablet Indications: Type 2 diabetes mellitus with mild nonproliferative diabetic retinopathy without macular edema, unspecified eye (HCC) TAKE 1 TABLET BY MOUTH TWICE DAILY WITH MEALS. E11.3599 180 tablet 3 11/29/2023 04/17/2024 Discontinued Start: 04-22-2022 End: 03-10-2023 take 1 tablet by mouth twice daily at mealtime metFORMIN (GLUCOPHAGE) 1,000 mg tablet Indications: Type 2 diabetes mellitus with mild nonproliferative diabetic retinopathy without macular edema, unspecified eye (HCC) TAKE 1 TABLET BY MOUTH TWICE DAILY WITH MEALS. E11.3599 180 tablet 3 11/23/2022 03/10/2023 Discontinued Start: 02-10-2021 take 1 tablet by lety th twice daily at mealtime metFORMIN (GLUCOPHAGE) 1,000 mg tablet Indications: Uncontrolled type 2 diabetes mellitus with mild nonproliferative retinopathy, with long-term current use of insulin Take 1 tablet by mouth twice daily with meals. 180 tablet 3 02/10/2021 Active Start: 05-16-2013 End: 11-29-2023 take 1 tablet by mouth once daily at lunch metFORMIN (GLUCOPHAGE) 1,000 mg tablet Indications: Type 2 diabetes mellitus with mild nonproliferative diabetic retinopathy without macular edema, unspecified eye (HCC) Take 1 tablet by mouth daily with lunch. E11.3599 0 03/10/2023 11/29/2023 Discontinued Start: 05-16-2013 metFORMIN HCl - 1000 MG Oral Tablet Quantity: 180 Refills: 0 Ordered: 16-May-2013 DO Start : 16-May-2013 Active Comment on above: Take 1 tablet by lety th twice daily with meals. Take 1 tablet by lety th twice daily with meals. E11.3599 Take 1 tablet by lety th daily with lunch. E11.3599 Miscellaneous Medical Supply (BLOOD PRESSURE CUFF) (2 sources) Start: 08-20-20 End: 08-21-20 Miscellaneous Medical Supply (BLOOD PRESSURE CUFF) Indications: Hypertension, essential 1 Each as directed for 1 day. 1 Each 0 08/20/2022 08/21/2022 Active Comment on above: 1 Each as directed f or 1 day. multivitamin with minerals (VISION/OPTIGEN) tablet (20 sources) take 1 tablet by mouth once daily multivitamin with minerals (VISION/OPTIGEN) tablet Take 1 tablet by mouth once daily. Active 2 ml naloxone hydrochloride 1 mg/ml prefilled syringe (20 sources) Opioid Antagonist naloxone (NARC AN) 1 mg/mL for intranasal administration 1 mg by INTRANASAL route as needed for known or suspected opioid overdose. Once for opioid overdose may repeat every 2-3 min Active nitrofurantoin, macrocrystals 25 mg / nitrofurantoin, monohydrate 75 mg oral capsule (3 sources) Nitrofuran Antibacterial Start: 02-09-20 End: 02-16-20 take 1 capsule by mouth twice daily nitrofurantoin monohydrate and macrocrystal (MACROBID) 100 mg capsule Take 1 capsule by mouth twice daily for 7 days. 14 capsule 0 02/08/2023 02/15/2023 Active Comment on above: Take 1 capsule by mo [facility] twice daily for 7 days. ondansetron 4 mg oral tablet (20 sources) Serotonin-3 Receptor Antagonist Start: 12-22-19 take 1 tablet by mouth once ondansetron (ZOFRAN) 4 mg tablet Take 1 tablet by mouth one time only for 1 dose. 1 tablet 12/21/2024 10:07 AM EDT 12/21/2024 Active Start: 08-20-2023 End: 12-17-2023 take 1 tablet by mouth every six hours as needed ondansetron (ZOFRAN) 4 mg tablet Take 1 tablet by mouth every 6 hours as needed. 30 tablet 0 08/20/2023 12/17/2023 Discontinued (Course of therapy completed) take 1 tablet by lety th every eight hours as needed ondansetron (ZOFRAN) 4 mg tablet Take 4 mg by mouth every 8 hours as needed for nausea/vomiting. Active Comment on above: Take 1 tablet by lety th every 6 hours as needed. sennosides, skilled nursing 8.6 mg oral tablet (20 sources) Start: 08-02-2024 take 1 tablet by mouth twice daily senna (SENOKOT) 8.6 mg tab Take 1 tablet by mouth two times a day. 08/02/2024 Active Start: 08-20-2023 End: 03-06-2024 take 1 tablet by mouth once daily Senna 8.6 mg tab Take 1 tablet by mouth once daily. 60 tablet 0 08/20/2023 03/06/2024 Discontinued (Discontinued by Patient) Comment on above: Take 1 tablet by lety th once daily. sodium phosphate,mono-dibasic (ENEMA RECTAL) (20 sources) sodium phosphate,mono-dibasic (ENEMA RECTAL) by RECTAL route as needed (constipation). may be given daily, if needed Suspended sodium phosphate ,mono-dibasic (ENEMA RECTAL) by RECTAL route as needed (constipation). may be given daily, if needed Active sulfamethoxazole 800 mg / trimethoprim 160 mg oral tablet (20 sources) Dihydrofolate Reductase Inhibitor Antibacterial, Sulfonamide Antimicrobial Start: 12-08-2024 End: 12-15-2024 take 1 tablet by mouth twice daily sulfamethoxazole-trimethoprim (BACTRIM DS) 800-160 mg per tablet Take 1 tablet by mouth two times a day for 7 days. 14 tablet 12/08/2024 12/15/2024 Active take 1 tablet by lety twice daily sulfamethoxazole-trimethoprim (BACTRIM D S) 800-160 mg per tablet Take 1 tablet by mouth two times a day. 0 Active Comment on above: Take 1 tablet by lety two times a day. traMADol hydrochloride 50 mg oral tablet (20 sources) Opioid Agonist take 1 tablet by mouth every six hours as needed traMADol (ULTRAM) 50 mg tablet Take 50 mg by mouth every 6 hours as needed for pain. Active take 1 tablet by lety th twice daily for pain traMADol (ULTRAM) 50 mg tablet Take 50 m g by mouth two times a day. For pain. Active Zinc (20 sources) take 1 tablet by mouth once maral y ZINC ORAL Take 1 tablet by mouth once daily. Active End: 11-27-2024 take 1 tablet by mouth once daily Zinc 50 mg tab Take 50 mg by mouth once daily. 11/27/2024 Discontinued (Other) take 1 tablet by lety th once daily Zinc 50 mg tab Take 50 mg by mouth once daily. Suspended take 1 tablet by lety th once daily Zinc 50 mg tab Take 50 mg by mouth once daily. Active take 1 tablet by lety th once daily Zinc 50 mg tab Take 50 mg by mouth once daily. 0 Active Comment on above: Take 50 mg by mouth once daily. Completed/Discontinued Medications Medication Drug Class(es) Dates Sig (Normalized) Sig (Original) acetaminophen 325 mg / HYDROcodone bitartrate 5 mg oral tablet (6 sources) Opioid Agonist Start: 05-22-2013 take 1 tablet by mouth every four to six hours as needed for pain HYDROcodone-Aceta minophen 5-325 MG Oral Tablet TAKE 1 TABLET EVERY 4 TO 6 HOURS NEEDED FOR PAIN. Quantity: 1 Refills: 0 Ordered: 22-May-2013 Alvina Sullivan MD Start : 22-May-2013 Active acetaminophen 325 mg / oxyCODONE hydrochloride 5 mg oral tablet (18 sources) Opioid Agonist Start: 06-18-2023 take 1 tablet by mouth every six hours as needed for pain oxyCODONE-acetami nophen (PERCOCET) 5-325 mg tablet Indications: Post-operative pain Take 1 tablet by mouth every 6 hours as needed for pain. 28 tablet 0 06/18/2023 Active Start: 10-28-2022 End: 11-04-2022 take 1-2 tablets by mouth every four hours as needed oxyCODONE-acetaminophen (PERCOCET) 5-325 mg tablet Indications: Skin ulcer of second toe, right, with necrosis of bone (HCC) Take 1-2 tablets by mouth every 4 hours as needed for up to 7 days. 28 tablet 0 10/28/2022 11/04/2022 Active Start: 07-08-2022 End: 07-15-2022 take 1-2 tablets by mouth every four hours as needed oxyCODONE-acetaminophen (PERCOCET) 5-325 mg tablet Indications: Ulcer of great toe, right, with necrosis of bone (HCC) Take 1-2 tablets by mouth every 4 hours as needed for up to 7 days. 28 tablet 0 07/08/2022 07/15/2022 Active Comment on above: Take 1-2 tablets by mouth every 4 hours as needed for up to 7 days. Take 1 tablet by lety th every 6 hours as needed for pain. amoxicillin 875 mg / clavulanate 125 mg oral tablet (1 source) Penicillin-class Antibacterial Start: 11-27-19 End: 11-27-19 take 1 tablet by mouth every twelve hours amoxicillin-clavulani c acid (AUGMENTIN) 875-125 mg per tablet Take 1 tablet by mouth every 12 hours for 7 days. 14 tablet 0 11/26/2022 11/26/2022 Discontinued (Allergic response) Comment on above: Take 1 tablet by lety th every 12 hours for 7 days. azithromycin 250 mg oral tablet (4 sources) Macrolide Antimicrobial Start: 08-19-20 Azithromycin 250 MG Oral Tablet TAKE 2 TABLETS ON DAY 1 THEN TAKE 1 TABLET A DAY FOR 4 DAYS. 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 Change sensor every 14 days. 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 Change sensor every 14 days. DX: E11.3599 IDDM 6 Each 3 11/28/2024 Active cefdinir 300 mg oral capsule (4 sources) Cephalosporin Antibacterial Start: 12-19-2024 End: 12-26-2024 take 1 capsule by mouth twice daily cefdinir (OMNICEF) 300 mg capsule Take 1 capsule by mouth two times a day for 7 days. 14 capsule 12/19/2024 12/26/2024 cefTRIAXone 1000 mg injection (20 sources) Cephalosporin Antibacterial Start: 12-22-2024 End: 12-22-2024 2 g, INTRAVENOUS, at 200 mL/hr, Administer over 30 Minutes, ONCE, 1 dose, On Wed12/22/24 at 1230, Antimicrobial indication: Empiric, Infectious source(s): Other (free text), Infectious source(s): N/A - Ambulatory End: 02-02-2025 inject 2 g intravenously once daily cefTRIAXone sodium (ROCEPHIN) 2 gram solr Inject 2 g intravenously once daily. 02/02/2025 Active clindamycin 300 mg oral capsule (4 sources) Lincosamide Antibacterial Start: 11-26-2022 End: 12-03-2022 take 1 capsule by mouth every eight hours clindamycin (CLEOCIN) 300 mg capsule Take 1 capsule by mouth every 8 hours for 7 days. 21 capsule 0 11/26/2022 12/03/2022 Comment on above: Take 1 capsule by [facility] every 8 hours for 7 days. codeine phosphate 2 mg/ml / guaiFENesin 20 mg/ml oral solution (1 source) Opioid Agonist take 5 mL by mouth every eight hours as needed codeine-guaiFENes in (GUAIFENESIN AC) 10-100 mg/5 mL syrup Take 5 mL by mouth three times a day as needed for cough. Suspended collagenase 0.25 unt/mg topical ointment (1 source) Collagen-specific Enzyme collagenase (SANTYL) ointment Apply 250 g to affected area once daily. Suspended CPAP/BIPAP/OTHER (20 sources) Start: 02-08-2023 End: 06-25-2050 CPAP/BIPAP/OTHER New set up: Settings 5 - 15 cm H2O, suitable mask per pt preference, chin strap, head gear, humidity, tubing, lifetime supplies. G47.33 NELLY 1 Each 02/08/2023 06/25/2050 Suspended Start: 02-08-2023 End: 06-25-2050 CPAP/BIPAP/OTHER New set up: Settings 5 - 15 cm H2O, suitable mask per pt preference, chin strap, head gear, humidity, tubing, lifetime supplies. G47.33 NELLY 1 Each 02/08/2023 06/25/2050 Active Start: 02-08-2023 End: 06-25-2050 CPAP/BIPAP/OTHER New set up: Settings 5 - 15 cm H2O, suitable mask per pt preference, chin strap, head gear, humidity, tubing, lifetime supplies. G47.33 NELLY 1 Each 0 02/08/2023 06/25/2050 Active Comment on above: New set up: Settings 5 - 15 cm H2O, suitable mask per pt preference, chin strap, head gear, humidity, tubing, lifetime supplies. G47.33 NELLY diazePAM 10 mg oral tablet (17 sources) Benzodiazepine Start: 08-09-2020 diazePAM 10 MG Oral Tablet TAKE 1 TABLET 60 min before test Quantity: 2 Refills: 0 Ordered: 19-Feb-2022 Alvina Sullivan MD Start : 09-Aug-2020 Active docusate sodium 56.6 mg/ml enema (1 source) docusate sodium (ENEMEEZ) 283 mg/5 mL enama 1 Enema by RECTAL route once daily. Suspended fluconazole 150 mg oral tablet (17 sources) Azole Antifungal Start: 04-27-2024 End: 07-07-2024 fluconazole (DIFLUCAN) 150 mg tablet Indications: vulvovaginal candidiasis Take 1 tablet by mouth every 72 hours. Take one pill. If no improvement in 72 hours, take an additional dose 2 tablet 04/27/2024 07/07/2024 Discontinued (Course of therapy completed) Start: 06-29-2023 End: 07-06-2023 take 1 tablet by mouth once daily fluconazole (DIFLUCAN) 200 mg tablet Take 1 tablet by mouth once daily for 7 days. 7 tablet 0 06/29/2023 07/06/2023 Active Comment on above: Take 200 mg by mouth once daily. Take 1 tablet by lety th once daily for 7 days. FLUoxetine 40 mg oral capsule (20 sources) Serotonin Reuptake Inhibitor Start: 09-27-2012 take 1 capsule by mouth once daily FLUoxetine HCl - 40 MG Oral Capsule TAKE 1 CAPSULE DAILY. Quantity: 90 Refills: 0 Ordered: 22-Apr-2022 Alvina Sullivan MD Start : 27-Sep-2012 Active Start: 05-27-2012 FLUoxetine (TX OZAC) 40 mg capsule Take by mouth q 24 HR. 05/27/2012 Active Comment on above: Take by mouth q 24 H R. 60 actuat fluticasone propionate 0.25 mg/actuat / salmeterol 0.05 mg/actuat dry powder inhaler (6 sources) Corticosteroid, beta2-Adrenergic Agonist Start: take 1 puff(s) by inhalation every twelve hours Advair Diskus 250-50 MCG/DOSE AEPB INHALE 1 PUFF EVERY 12 HOURS. Quantity: 1 Refills: 0 Ordered: 24-Aug-2017 Alvina Sullivan MD Start : 24-Aug-2017 Active honey (MEDIHONEY) 100 % pste (20 sources) Start: 4 End: 4 honey (MEDIHONEY) 100 % pste Apply thin layer of medihoney to bilateral lower leg wounds. Change daily. Patient should start on March 31, 2024. 44 mL 2 03/31/2024 07/27/2024 Discontinued (Course of therapy completed) Start: 03-31-2024 honey (MEDIHON EY) 100 % pste Apply thin layer of medihoney to bilateral lower leg wounds. Change daily. Patient should start on March 31, 2024. 44 mL 2 03/31/2024 Active ibuprofen 600 mg oral tablet (20 sources) Nonsteroidal Anti-inflammatory Drug Start: 08-20-2023 take 1 tablet by mouth every six hours ibuprofen (MOTRIN) 600 mg tablet Take 1 tablet by mouth every 6 hours. 60 tablet 0 08/20/2023 Active Start: 05-20-2018 take 1 tablet by lety th every six hours as needed for pain ibuprofen (ADVIL;MOTRIN) 600 MG tablet Take 1 tablet by mouth every 6 hours as needed for Pain 28 tablet 0 05/20/2018 Active ibuprofen (ADVIL ORAL) Take 3 tablets by mouth as needed. Suspended ibuprofen (ADVIL ORAL) Take 3 tablets by mouth as needed. Active ibuprofen (ADVIL ORAL) Take 3 tablets by mouth as needed. 0 Active ibuprofen (ADVIL ORAL) Take 3 tablets by mouth. 0 Active Comment on above: Take 3 tablets by mo uth. Take 3 tablets by mo uth as needed. Take 1 tablet by lety th every 6 hours. 3 ml insulin glargine 100 unt/ml pen injector (5 sources) Insulin Analog Start: 7 Basaglar KwikPen 100 UNIT/ML Subcutaneous Solution Pen-injector 120 UNITS SUBCUTANEOUSLY ONCE DAILY. (GIVE 100U INJECTION+20U INJECTIO Quantity: 120 Refills: 0 Ordered: 11-Mar-2017 DO Start : 10-Mar-2017 Active 3 ml insulin, regular, human 500 unt/ml pen injector (20 sources) Insulin Start: 4 inject 20 [IU] by subcutaneous injection once daily at breakfast insulin regular human, CONCENTRATED 500 UNIT/ML, (HUMULIN R) 500 unit/mL (3 mL) inpn Inject 20 Units subcutaneously daily with breakfast. 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 42 mL 3 06/14/2023 Active Start: 04-01-2022 inject 100 [IU] by s ubcutaneous injection at breakfast, then inject 40 [IU] by subcutaneous injection at lunch, then inject 80 [IU] by subcutaneous injection at dinner HumuLIN R U-500 KwikPen 500 UNIT/ML Subcutaneous Solution Pen-injector INJECT 100 UNITS UNDER THE SKIN AT BREAKFAST, 40 UNITS AT LUNCH, AND 80 UNITS AT DINNER. Quantity: 0 Refills: 0 Ordered: 01-Apr-2022 DO Start : 01-Apr-[address] 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 42 mL 3 09/23/2022 Active Start: 09-29-2021 HumuLIN R U-50 0 KwikPen 500 UNIT/ML Subcutaneous Solution Pen-injector INJECT 90 UNITS SUBCUTANEOUSLY AT BREAKFAST TIME, 40 UNTIS AT LUNCH, AND 90 UNITS AT SUPPER Quantity: 42 Refills: 0 Ordered: 30-Sep-2021 DO Start : 29-Sep-2021 Active Comment on above: 90 units sc at break fast, 40 units at lunch, 90 units at supper. 100 units sc at ariela kfast, 40 units at lunch, 80 units at supper. 40 units sc at break fast, 100 units at lunch, 80 units at supper. 50 units sc at break fast, 100 units at lunch, 70 units at supper. linezolid 600 mg oral tablet (4 sources) Oxazolidinone Antibacterial Start: 2024 End: 2024 take 1 tablet by mouth twice daily linezolid (ZYVOX) 600 mg tablet Take 1 tablet by mouth two times a day for 7 days. 14 tablet 12/19/2024 12/26/2024 lisinopril 20 mg oral tablet (11 sources) Angiotensin Converting Enzyme Inhibitor End: 2024 take 1 tablet by mouth once daily lisinopril (ZESTRIL) 20 mg tablet Take 20 mg by mouth once daily. 01/22/2025 Discontinued (Course of therapy completed) magnesium hydroxide 80 mg/ml oral suspension (20 sources) End: 2024 take 30 mL by mouth once daily as needed for constipation magnesium hydroxide (MOM) 400 mg/5 mL suspension Take 30 mL by mouth once daily as needed for constipation. 11/27/2024 Discontinued (Other) metOLazone 2.5 mg oral tablet (9 sources) Thiazide-like Diuretic Start: 2023 take 1 tablet by mouth once daily metOLazone (ZAROXOLYN) 2.5 mg tablet Take 1 tablet by mouth once daily. 10 tablet 07/11/2024 Suspended metroNIDAZOLE 500 mg oral tablet (20 sources) Nitroimidazole Antimicrobial Start: 2024 End: 2024 take 1 tablet by mouth three times daily metroNIDAZOLE (FLAGYL) 500 mg tablet Take 1 tablet by mouth three times a day for 7 days. 21 tablet 12/19/2024 12/26/2024 miSOPROStol 0.2 mg oral tablet (7 sources) Prostaglandin E1 Analog Start: 2022 End: 2022 take 2 tablets by mouth once daily at bedtime miSOPROStol (CYTOTEC) 200 mcg tablet Indications: Postmenopausal bleeding , Thickened endometrium Take 2 tablets by mouth the day prior to procedure at bedtime with food 2 tablet 0 06/15/2023 07/15/2023 Discontinued Comment on above: Take 2 tablets by [facility] the day prior to procedure at bedtime with food multivit,thx,calcium ,iron,mins (MULTIVITAMIN AND MINERAL ORAL) (20 sources) End: 2024 take 1 tablet by mouth once daily multivit,thx,calcium ,iron,mins (MULTIVITAMIN AND MINERAL ORAL) Take 1 tablet by mouth once daily. 11/27/2024 Discontinued (Other) take 1 tablet by [facility] once daily multivit,thx,calcium,iron,mins (MULTIVIT GASCA AND MINERAL ORAL) Take 1 tablet by mouth once daily. Suspended [facility] multivit,thx,calcium,iron,mins (MULTIVIT GASCA AND MINERAL ORAL) Take 1 tablet by mouth once daily. Active take [facility] daily multivit,thx,calcium,iron,mins (MULTIVIT GASCA AND MINERAL ORAL) Take 1 tablet by mouth once daily. 0 Active Comment on above: [facility]. oxyCODONE hydrochloride 5 mg oral tablet (20 sources) Opioid Agonist Start: 07-05-2024 take 1 tablet by mouth every twelve hours as needed oxyCODONE IR (ROXICODONE) 5 mg immediate release tablet Take 5 mg by mouth every 12 hours as needed for pain. 07/05/2024 Suspended Start: 08-20-2023 End: 12-17-2023 take 1 tablet by mouth every six hours as needed oxyCODONE IR (ROXICODONE) 5 mg immediate release tablet Indications: Post-operative pain , Endometrial cancer (HCC) Take 1 tablet by mouth every 6 hours as needed. 12 tablet 0 08/20/2023 12/17/2023 Discontinued (Course of therapy completed) Comment on above: Take 1 tablet by lety th every 6 hours as needed. polyethylene glycol 3350 53559 mg powder for oral solution (20 sources) Osmotic Laxative Start: 08-03-2024 polyethylene glycol 3350 17 gram packet Take 1 Packet by mouth once daily. Dissolve dose in 4 - 8 ounces of liquid and take as directed. 08/03/2024 Suspended Start: 08-20-2023 End: 12-17-2023 polyethylene glycol 3350 (MD RALAX) 17 gram/dose powder Take 17 g by mouth as directed. Dissolve dose in 4 - 8 ounces of liquid and take as directed. 476 g 0 08/20/2023 12/17/2023 Discontinued (Course of therapy completed) Comment on above: Take 17 g by mouth a s directed. Dissolve dose in 4 - 8 ounces of liquid and take as directed. microencapsulated potassium chloride 20 meq extended release oral tablet (9 sources) Start: take 1 tablet by mouth twice daily potassium chloride ER (KLOR-CON) 20 mEq tablet Take 1 tablet by mouth two times a day. 08/02/2024 Suspended Start: 07-11-2024 take 1 tablet by lety th once daily potassium chloride (K-TAB) 10 mEq tablet Take 1 tablet by mouth once daily. 30 tablet 07/11/2024 Suspended Pseudoephedrine (12 sources) alpha-Adrenergic Agonist End: 12-24-2022 take 1 tablet by mouth every twelve hours as needed pseudoephedrine HCl (SUDAFED 12 HOUR ORAL) Take 1 tablet by mouth every 12 hours as needed. 0 12/24/2022 Discontinued (Course of therapy completed) take 1 tablet by lety th every twelve hours as needed pseudoephedrine HCl (SUDAFED 12 HOUR ORA L) Take 1 tablet by mouth every 12 hours as needed. 0 Active Comment on above: Take 1 tablet by lety th every 12 hours as needed. regadenoson 0.4 mg injection (LEXISCAN) (2 sources) Start: 01-05-2023 End: 01-05-2023 regadenoson 0.4 mg injection (LEXISCAN) Start: 05-12-2022 End: 05-12-2022 regadenoson 0.4 mg injection (LEXISCAN) spironolactone 25 mg oral tablet (20 sources) Aldosterone Antagonist Start: 01-29-2022 take 1 tablet by mouth once daily Spironolactone 25 MG Oral Tablet TAKE 1 TABLET DAILY. Quantity: 90 Refills: 3 Ordered: 05-Mar-2022 Kiel Garibay MD Start : 29-Jan-2022 Active Start: 01-29-2022 take 0.5 tablet by m outh once daily Spironolactone 25 MG Oral Tablet TAKE 1/2 TABLET BY MOUTH EVERY DAY Quantity: 45 Refills: 3 Ordered: 20-Feb-2022 Kiel Garibay MD Start : 29-Jan-2022 Active spironolactone ( ALDACTONE) 25 mg tablet Take 12.5 mg by mouth once daily. Take every other day 0 Active Comment on above: Take 25 mg by mouth once daily. Take half tablet by mouth daily Take 12.5 mg by mout h once daily. Take half tablet by mouth daily Take 12.5 mg by mout h once daily. Take every other day 200 ml vancomycin 5 mg/ml injection (20 sources) Glycopeptide Antibacterial Start: 12-22-2024 End: 12-22-2024 1 g, INTRAVENOUS, at 200 mL/hr, Administer over 1 Hours, ONCE, 1 dose, On Wed12/22/24 at 1230, REFRIGERATE - NONCYTOTOXIC IRRITANT WITH VESICANT POTENTIAL, Antimicrobial indication: Empiric, Infectious source(s): Other (free text), Infectious source(s): N/A - Ambulatory End: 02-02-2025 vancomycin/water for inj, PE G, (VANCOMYCIN-DILUENT COMBO NO.1) 1 gram/200 mL pgbk Inject intravenously once daily. 02/02/2025 Active vitamin b12 1 mg/ml injectable solution (20 sources) Vitamin B12 Start: 02-09-2024 End: 02-09-2024 cyanocobalamin 1,000 mcg injection Start: 12-10-2023 End: 11-10-2024 cyanocobalamin 1,000 mcg inj ection Start: 12-10-2023 End: 11-10-2024 1,000 mcg, INTRAMUSCULAR, EV KIRILL 4 WEEKS, 12 doses, First dose on Wed12/10/23 at 1030, Last dose on Wed10/13/24 at 1030 Start: 10-30-2022 End: 11-24-2023 cyanocobalamin 1,000 mcg inj ection Start: 09-23-2022 End: 10-30-2022 take 1 tablet by mouth once daily cyanocobalamin (VITAMIN B-12) 1,000 mcg tab Indications: B12 deficiency Take 1 tablet by mouth once daily. 0 09/23/2022 10/30/2022 Discontinued (Course of therapy completed) cyanocobalamin, vitamin B-12, 1,000 mcg/mL kit 1,000 mcg by INJECTION(UNSPECIFIED PARENTERAL ROUTES) route once every month. Active Cyanocobalamin ( [employer] EZ Use B-12) 1000 MCG/ML kit Infuse 1,000 mcg into a venous catheter every 30 (thirty) days. Active Comment on above: Take 1 tablet by lety th once daily. 1,000 mcg by INJECTI ON(UNSPECIFIED PARENTERAL ROUTES) route once every month. Zinc Sulfate (20 sources) zinc sulfate (ZI NC-220 ORAL) Take by mouth. 0 Active Comment on above: Take by mouth. Problems Active Problems Problem Classification Problem Date Documented Da te Episodic/Chronic Acute bronchitis (20 sources) Acute bronchitis; Translations: [Acute bronchitis] Episodic Allergic reactions (4 sources) Other allergy status, other than to drugs and biological substances; Translations: [Vulval eczema] Onset: 02-21-2018 02-24-2024 Episodic Anxiety disorders (20 sources) Anxiety disorder, unspecified; Translations: [Anxiety] Onset: 05-20-2018 Chronic Bacterial infection; unspecified site (2 sources) Methicillin resistant Staphylococcus aureus infection as the cause of diseases classified elsewhere; Translations: [Resistance to vancomycin related antibiotics] Onset: 01-26-2025 Episodic Cancer of uterus (20 sources) Malignant neoplasm of endometrium of corpus uteri ; Translations: [Malignant neoplasm of endometrium] Onset: 08-09-2023 3 Chronic Chronic ulcer of skin (20 sources) Non-pressure chronic ulcer of other part of right foot with fat layer exposed; Translations: [Ulcer of other part of foot] Onset: 06-14-2023 Resolved: 04-17-2024 Chronic Complication of device; implant or graft (20 sources) Skin graft failure; Translations: [Skin graft (allograft) (autograft) failure] Onset: 11-14-2024 Episodic Congestive heart failure; nonhypertensive (20 sources) Heart failure with normal ejection fraction; Translations: [Heart failure, unspecified] Onset: 03-23-2022 03-23-2022 Chronic Deficiency and other anemia (1 source) Deficiency anemias; Translations: [Other specified nutritional anemias] Episodic Deficiency and other anemia (2 sources) Anemia, unspecified; Translations: [Anemia, unspecified] Onset: 02-07-2025 Episodic Diabetes mellitus with complications (20 sources) Type II diabetes mellitus uncontrolled; Translations: [Diabetes mellitus without mention of complication, type II or unspecified type, uncontrolled] Onset: 08-08-1999 Resolved: 08-18-2024 09-30-2021 Chronic Diabetes mellitus without complication (15 sources) Type 2 diabetes mellitus without complications; Translations: [Type 2 diabetes mellitus] Onset: 08-06-1999 10-07-2023 Chronic Disorders of lipid metabolism (20 sources) Hyperlipidemia, unspecified; Translations: [Hyperlipidemia] Onset: 08-08-2012 01-05-2017 Chronic Essential hypertension (20 sources) Essential (primary) hypertension; Translations: [Hypertensive disorder] Onset: 05-16-2013 05-16-2013 Chronic External Injury - Fall (4 sources) Other fall on same level, initial encounter; Translations: [Fall on same level from slipping, tripping and stumbling without subsequent striking against object, initial encounter] Onset: 02-21-2018 Genitourinary symptoms and ill-defined conditions (20 sources) Mixed urinary incontinence; Translations: [Mixed incontinence] Onset: 04-26-2024 08-09-2023 Chronic Hypertension with complications and secondary hypertension (1 source) Hypertensive heart disease with heart failure; Translations: [Hypertensive heart disease with heart failure] Onset: 12-08-2024 Chronic Immunizations and screening for infectious disease (1 source) Vaccination needed; Translations: [Encounter for immunization] 05-04-2023 Episodic Infective arthritis and osteomyelitis (except that caused by tuberculosis or sexually transmitted disease) (20 sources) Acute osteomyelitis; Translations: [Other acute osteomyelitis, unspecified site] Onset: 12-21-2024 12-19-2024 Chronic Inflammatory diseases of female pelvic organs (1 source) Acute vaginitis; Translations: [Acute vaginitis] 04-26-2024 Episodic Menopausal disorders (3 sources) Postmenopausal bleeding; Translations: [Postmenopausal bleeding] Chronic Mood disorders (20 sources) Depressive disorder; Translations: [Depressive disorder, not elsewhere classified] Onset: 05-16-2013 Resolved: 08-18-2024 05-16-2013 Chronic Mood disorders (3 sources) Major depressive disorder, single episode, unspecified; Translations: [Mood disorders] Onset: 05-20-2018 Nutritional deficiencies (20 sources) Cobalamin deficiency; Translations: [Deficiency of other specified B group vitamins] Onset: 09-23-2022 Episodic Open wounds of extremities (12 sources) Amputated big toe; Translations: [Complete traumatic amputation of right great toe, initial encounter] Onset: 12-19-2024 Chronic Open wounds of extremities (20 sources) Open wounds involving multiple regions of lower limb(s); Translations: [Unspecified open wound, right lower leg, subsequent encounter] Onset: 01-19-2022 Episodic Other and ill-defined heart disease (1 source) Left ventricular hypertrophy; Translations: [Cardiomegaly] Chronic Other and ill-defined heart disease (2 sources) Left ventricular systolic dysfunction; Translations: [Heart disease, unspecified] 11-17-2024 Chronic Other and ill-defined heart disease (1 source) Other ill-defined heart diseases; Translations: [Left ventricular systolic dysfunction] Onset: 12-14-2024 Chronic Other circulatory disease (20 sources) History of transient ischemic attack; Translations: [Personal history of transient ischemic attack (TIA), and cerebral infarction without residual deficits] Onset: 11-30-2024 11-30-2024 Episodic Other circulatory disease (1 source) Personal history of transient ischemic attack (TIA), and cerebral infarction without residual deficits; Translations: [History of TIA (transient ischemic attack)] Onset: 11-30-2024 Episodic Other connective tissue disease (20 sources) Pain in limb; Translations: [Pain in limb] Episodic Other diseases of bladder and urethra (8 sources) Overactive bladder; Translations: [Overactive bladder] 04-26-2024 Chronic Other diseases of bladder and urethra (3 sources) Overactive bladder; Translations: [Overactive bladder] Onset: 04-26-2024 Chronic Other eye disorders (1 source) Abducens nerve palsy; 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, left eye] Episodic Other hereditary and degenerative nervous system conditions (1 source) Restless legs; Translations: [Restless legs syndrome] Chronic Other infections; including parasitic (3 sources) Disorder due to infection; Translations: [Unspecified infectious disease] Episodic Other injuries and conditions due to external causes (2 sources) Unspecified injury of unspecified lower leg, initial encounter; Translations: [Unspecified injury of unspecified lower leg, init encntr] Onset: 05-20-2018 Episodic Other injuries and conditions due to external causes (8 sources) Local infection of wound; Translations: [Other injury of unspecified body region, initial encounter] Episodic Other injuries and conditions due to external causes (1 source) Injury of finger of left hand; Translations: [Unspecified injury of left wrist, hand and finger(s), initial encounter] Episodic Other injuries and conditions due to external causes (2 sources) Other injury of unspecified body region, initial encounter; Translations: [Wound infection] Onset: 08-17-2024 Episodic Other lower respiratory disease (13 sources) H/O: bronchitis; Translations: [Personal history of other diseases of respiratory system] Episodic Other lower respiratory disease (17 sources) Dyspnea; Translations: [Other respiratory abnormalities] Episodic Other lower respiratory disease (2 sources) Dyspnea on exertion; Translations: [Other forms of dyspnea] Episodic Other nutritional; endocrine; and metabolic disorders (1 source) Body mass index (BMI) 29.0-29.9, adult; Translations: [BMI 29.0-29.9,adult] Onset: 11-30-2024 Episodic Other screening for suspected conditions (not mental disorders or infectious disease) (1 source) Endometrium thickened; Translations: [Abnormal findings on diagnostic imaging of other specified body structures] 07-15-2023 Chronic Other screening for suspected conditions (not mental disorders or infectious disease) (20 sources) Patient encounter status; Translations: [Other screening mammogram] Onset: 10-01-2024 Episodic Naya-; endo-; and myocarditis; cardiomyopathy (except that caused by tuberculosis or sexually transmitted disease) (1 source) Heart valve disorder; Translations: [Endocarditis, valve unspecified] 11-17-2024 Chronic Peripheral and visceral atherosclerosis (20 sources) Peripheral vascular disease; Translations: [Peripheral vascular disease, unspecified] Onset: 01-19-2022 Chronic Pulmonary heart disease (20 sources) Pulmonary hypertension; Translations: [Pulmonary hypertension, unspecified] Onset: 12-14-2024 11-17-2024 Chronic Residual codes; unclassified (20 sources) Obstructive sleep apnea syndrome; Translations: [Obstructive sleep apnea (adult) (pediatric)] Onset: 02-09-2023 Chronic Residual codes; unclassified (1 source) Obstructive sleep apnea (adult) (pediatric); Translations: [NELLY (obstructive sleep apnea)] Onset: 08-17-2024 Chronic Residual codes; unclassified (20 sources) Peripheral edema; Translations: [Edema] Episodic Residual codes; unclassified (20 sources) Sleep disorder; Translations: [Sleep disturbance, unspecified] Episodic Residual codes; unclassified (2 sources) Finding of systemic arterial pressure; Translations: [Other general symptoms and signs] Episodic Skin and subcutaneous tissue infections (1 source) Local infection of the skin and subcutaneous tissue, unspecified; Translations: [Wound infection] Onset: 01-30-2025 Episodic Superficial injury; contusion (16 sources) Contusion of left knee, initial encounter; Translations: [Abrasion of other part of head, initial encounter] Onset: 02-21-2018 Episodic Unclassified (2 sources) New Patient; Translations: [New Patient] Onset: 10-09-2024 Unclassified (1 source) Established Patient Onset: 02-24-2024 Unclassified (1 source) Obesity, Class I, BMI 30-34.9; Translations: [Obesity, Class I, BMI 30-34.9] Onset: 08-18-2024 Unclassified (1 source) Wound Check Onset: 03-13-2024 Varicose veins of lower extremity (20 sources) Ankle ulcer; Translations: [Varicose veins of unspecified lower extremity with ulcer of ankle] Onset: 01-19-2022 Episodic Past or Other Problems Problem Classification Problem Date Documented Date Episodic/Chronic Acute and unspecified renal failure (20 sources) Acute renal failure syndrome; Translations: [Acute kidney failure, unspecified] Onset: 07-31-2024 Resolved: 08-18-2024 07-31-2024 Episodic Conditions associated with dizziness or vertigo (20 sources) Lightheadedness; Translations: [Dizziness and giddiness] Onset: 02-04-2021 Resolved: 02-04-2021 02-04-2021 Episodic Deficiency and other anemia (20 sources) Pernicious anemia; Translations: [Vitamin B12 deficiency anemia due to intrinsic factor deficiency] Onset: 09-23-2022 06-14-2023 Episodic Diabetes mellitus without complication (20 sources) Hyperglycemia; Translations: [Hyperglycemia, unspecified] Onset: 02-04-2021 Resolved: 02-10-2021 02-10-2021 Episodic Fluid and electrolyte disorders (20 sources) Hyponatremia; Translations: [Hypo-osmolality and hyponatremia] Onset: 02-04-2021 Resolved: 08-18-2024 02-04-2021 Episodic Fracture of lower limb (2 sources) Nondisplaced fracture of proximal phalanx of left great toe, initial encounter for closed fracture; Translations: [Nondisp fx of proximal phalanx of left great toe, init] Onset: 02-21-2018 Episodic Genitourinary symptoms and ill-defined conditions (20 sources) Albuminuria ; Translations: [Proteinuria, unspecified] Onset: 09-29-2021 09-29-2021 Episodic Malaise and fatigue (20 sources) Malaise and fatigue; Translations: [Other malaise] Onset: 02-04-2021 Resolved: 02-04-2021 02-04-2021 Episodic Nonspecific chest pain (20 sources) Chest pain; Translations: [Chest pain, unspecified] Onset: 04-01-2017 Resolved: 03-10-2019 03-10-2019 Episodic Nutritional deficiencies (20 sources) Vitamin D deficiency; Translations: [Vitamin D deficiency, unspecified] Onset: 01-05-2017 Resolved: 08-18-2024 01-05-2017 Chronic Open wounds of extremities (20 sources) Open wounds involving multiple regions of lower limb(s); Translations: [Unspecified open wound, left lower leg, subsequent encounter] Onset: 01-19-2022 Resolved: 08-18-2024 Episodic Other aftercare (4 sources) alf (current) use of insulin; Translations: [alf (current) use of insulin] Onset: 05-20-2018 Episodic Other aftercare (20 sources) Long-term current use of insulin; Translations: [alf (current) use of insulin] Onset: 08-09-2012 Resolved: 12-12-2018 12-12-2018 Episodic Other aftercare (1 source) Encounter for other specified aftercare; Translations: [Visit for wound check] Onset: 10-01-2024 Episodic Other diseases of veins and lymphatics (20 sources) Vascular insufficiency; Translations: [Venous insufficiency (chronic) (peripheral)] Onset: 01-19-2022 Episodic Other injuries and conditions due to external causes (2 sources) Unspecified injury of left foot, initial encounter; Translations: [Unspecified injury of left foot, initial encounter] Onset: 02-21-2018 Episodic Other liver diseases (20 sources) Alkaline phosphatase raised; Translations: [Abnormal levels of other serum enzymes] Onset: 08-17-2024 08-17-2024 Episodic Other non-traumatic joint disorders (20 sources) Pain in right knee; Translations: [Pain in joint, lower leg] Onset: 02-10-2021 Resolved: 07-27-2024 02-10-2021 Episodic Other nutritional; endocrine; and metabolic disorders (20 sources) Obese class I; Translations: [Obesity, unspecified] Onset: 02-10-2021 Resolved: 04-17-2024 02-10-2021 Chronic Other nutritional; endocrine; and metabolic disorders (20 sources) Obese class II; Translations: [Obesity, unspecified] Onset: 02-05-2020 Resolved: 08-18-2024 09-29-2021 Chronic Other nutritional; endocrine; and metabolic disorders (13 sources) History of diabetes mellitus type 2; Translations: [Personal history of other endocrine, metabolic, and immunity disorders] Onset: 08-06-1999 Episodic Other nutritional; endocrine; and metabolic disorders (13 sources) H/O: raised blood lipids; Translations: [Personal history of other endocrine, metabolic, and immunity disorders] Onset: 12-10-2005 Episodic Other nutritional; endocrine; and metabolic disorders (20 sources) Overweight in adulthood with body mass index of 25 or more but less than 30; Translations: [Body mass index (BMI) 29.0-29.9, adult] Onset: 04-17-2024 11-30-2024 Episodic Residual codes; unclassified (20 sources) Noncompliance with treatment; Translations: [Personal history of noncompliance with medical treatment, presenting hazards to health] Onset: 12-10-2005 Episodic Comment on above: Medical record state s this PT is non compliant with medical treatment relating to diabetes.; Screening and history of mental health and substance abuse codes (13 sources) H/O: depression; Translations: [Personal history of other mental disorders] Onset: 11-18-2007 Episodic Unclassified (1 source) screening Onset: 12-09-2018 Unclassified (20 sources) Foot pain, unspecified laterality; Translations: [Foot pain, unspecified laterality] Unclassified (1 source) Patient encounter status 10-14-2024 Results Test Name Value Interpretation Reference Range Facility [facility] [place] [facility] [place] CNPN Telephone (FAM[facility]) SHADE BRAMBILA ([id number]) 1960 F Date Time Provider Department 02/05/25 DENNIS GARCIA During your visit today, we recorded the following information about you: Chance Camara MA 02/05/2025 12:37 PM Signed Received patient's Office Notes re: Diabetic Eye Exam (dos: 02/02/25) from [facility] placed in provider's in box to be for reviewed AND signed with providers approval to be sent to scanning. Chance Sanders) Dennis Garcia MD 02/05/2025 5:11 PM Signed Ophthalmology follow-up appointment Impression and plan: 1. 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 Persistent diabetic macular edema left eye 3. Proliferative diabetic retinopathy bilaterally Continue Eylea injections Allergies As of Date: 02/05/2025 Noted Allergy Reaction AMOXICILLIN 11/26/2022 16 - Unknown Comments: Patient does not remember reaction SILICONE 06/22/2024 2 - Rash 9 - Itching Comments: Dressing with silicone border caused inflammation where the bandage was placed CODEINE 09/26/2022 5 - Intolerance Comments: Patient states Makes her Hyper MORPHINE 08/17/2023 5 - Intolerance Comments: Difficulty waking up / groggy Date Reviewed: 02/02/2025 Reviewed by: Shelley Kenny RN - Fully Assessed Reason for Visit: Received Outside Medical Records [[id number]] Cmt: [facility] re: Diabetic Eye Exam 02/02/25 Prescriptions as of 02/05/2025 - insulin lispro (HUMALOG U-100 INSULIN) 100 unit/mL injection Sliding scale-Blood sugar 111-150 Give 0 units 151-200 Give 1 unit, 201-250 Give 2 units, 251-300 Give 3 units, 301-350 Give 4 units, 351-400 Give 5 units. Greater than 400 give 5 units and notify provider. - empagliflozin (JARDIANCE) 25 mg tablet TAKE 1 TABLET BY MOUTH EVERY DAY WITH BREAKFAST - atorvastatin (LIPITOR) 80 mg tablet Take 1 tablet by mouth once daily. - enalapril (VASOTEC) 20 mg tablet Take 0.5 tablets by mouth two times a day. - ferrous sulfate 325 mg (65 mg iron) EC tablet Take 325 mg by mouth once daily. - metroNIDAZOLE (FLAGYL) 500 mg tablet Take 500 mg by mouth three times a day. - multivitamin with minerals (VISION/OPTIGEN) tablet Take 1 tablet by mouth once daily. - L.acidophilus-L.rhamno madelaine (PROBIOTIC) 15 billion cell capsule Take 1 capsule by mouth once daily. - traMADol (ULTRAM) 50 mg tablet Take 50 mg by mouth two times a day. For pain. - ascorbic acid, vitamin C, (VITAMIN C) 500 mg tablet Take 500 mg by mouth two times a day. - ZINC ORAL Take 1 tablet by mouth once daily. - ondansetron (ZOFRAN) 4 mg tablet Take 1 tablet by mouth one time only for 1 dose. - furosemide (LASIX) 20 mg tablet Take 1 tablet by mouth once daily. 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 Dissolve dose in 4 - 8 ounces of liquid and take as directed. - Blood-Glucose Sensor (DEXCOM G7 SENSOR) [facility] For continuous glucose monitoring - Blood-Glucose Meter,Continuous (DEXCOM G7 CLAIMS ADJUSTOR) [facility] For continuous glucose monitoring. - GLUCAGON EMERGENCY KIT, HUMAN, INJECTION by INJECTION(UNSPECIFIED PARENTERAL ROUTES) route. - sodium phosphate,mono-dibasic (ENEMA RECTAL) by RECTAL route as needed (constipation). may be given daily, if needed - bisacodyl (DULCOLAX) 10 mg supp 10 mg by RECTAL route once daily as needed for constipation. - senna-docusate (SENEXON-S) 8.6-50 mg per tablet Take 1 tablet by mouth as needed for constipation. - naloxone (NARCAN) 1 mg/mL for intranasal administration 1 mg by INTRANASAL route as needed for known or suspected opioid overdose. Once for opioid overdose may repeat every 2-3 min - fluticasone (FLONASE) 50 mcg/actuation nasal spray Use 2 sprays in each nostril once daily. - ondansetron (ZOFRAN) 4 mg tablet Take 4 mg by mouth every 8 hours as needed for nausea/vomiting. - traMADol (ULTRAM) 50 mg tablet Take 50 mg by mouth every 6 hours as needed for pain. - acetaminophen (TYLENOL) 325 mg tablet Take 2 tablets by mouth every 6 hours as needed for fever (specify temp.) or pain (temp >100.1F). - senna (SENOKOT) 8.6 mg tab Take 1 tablet by mouth two times a day. - ACCU-CHEK JOSE PLUS TEST STRP test strip USE TO TEST BLOOD GLUCOSE 3 TIMES DAILY - ascorbic acid (VITAMIN C ORAL) Take 500 mg by mouth two times a day. - aspirin, enteric coated (ASPIRIN, ENTERIC COATED) 81 mg EC tablet Take 81 mg by mouth once daily. - cyanocobalamin, vitamin B-12, 1,000 mcg/mL kit 1,000 mcg by INJECTION(UNSPECIFIED PARENTERAL ROUTES) route once every month. - Blood Pressure Monitor Please monitor blood pressure 1-2 hours after taking morning medications. - FLUoxetine (PROZAC) 40 mg capsule Take by mouth q 24 HR. - lancets (ONE TOUCH DELICA) 33 gauge USE TO BLOOD GLUCOSE 3 TIMES DAILY. IN (more content not included)... Normal [facility] CNOVon 02-02-2025 CNOV Normal [facility] Absolute lymphocyte countOrd ered By: Donavon De La Paz on 01-30-2025 Lymphocytes Auto (Unsp spec) [#/Vol] 0.96 10*3/uL 0.83-4.51 [facility] Absolute neutrophil countOrd ered By: Donavon De La Paz on 01-30-2025 Neutrophils (Bld) [#/Vol] 7.1 10*3/uL 2.0-7.7 [facility] Anion gap in Serum or Plasma Ordered By: Donavon De La Paz on 01-30-2025 Anion gap [Moles/Vol] 9 mmol/L 5-15 [place] Automated lymphocyte count a s percentage of total leukocytesOrdered By: Donavon De La Paz on 01-30-2025 Lymphocytes/100 WBC Auto (Unsp spec) 9.6 % Low 19-41 [facility] BUN/creatinine ratioOrdered By: Donavon De La Paz on 01-30-2025 Urea nitrogen/Creatinine [Mass ratio] 40.3 mg/mg High 10-20 [facility] Basophil percentageOrdered B y: Donavon De La Paz on 01-30-2025 Basophils/100 WBC (Bld) 0.1 % 0-1 [facility] Bilirubin, totalOrdered By: Donavon De La Paz on 01-30-2025 Bilirubin [Mass/Vol] 0.27 mg/dL 0.00-1.30 [facility] Blood polychromasia detectio n by light microscopyOrdered By: Donavon De La Paz on 01-30-2025 Polychromasia LM Ql (Bld) 1+ [facility] CBC W/Diff, Automatedon 01-05 Anisocytosis Ql (Bld) 1+ Normal [place] Comment on above: Order Comment: 317.1 Performed By: #### L 501.1105, L501.6710, L501.4405, L100.0100, L101.9900, L501.8820 #### [facility] [address] [place], [place], [id number] PLT EST A Normal ADEQ [facility] Comment on above: Order Comment: 317.1 Performed By: #### L 501.1105, L501.6710, L501.4405, L100.0100, L101.9900, L501.8820 #### [facility] [address] [place], [address] POLYCHROMASIA 1+ Normal [facility] Comment on above: Order Comment: 317.1 Performed By: #### L 501.1105, L501.6710, L501.4405, L100.0100, L101.9900, L501.8820 #### [facility] [address] [place], [address] CNOVon 01-30-2025 CNOV Normal [facility] CRPon 01-30-2025 C-REACTIVE PROT 17.70 mg/L High 0.0-3.0 [facility] Comment on above: Order Comment: 317.1 Performed By: #### L 501.1105, L501.6710, L501.4405, L100.0100, L101.9900, L501.8820 #### [facility] [address] [place], [address] Carbon dioxide, total [Moles /volume] in Central venous bloodOrdered By: Donavon De La Paz on 01-30-2025 CO2 [Moles/Vol] 24.9 mmol/L 21.0-32.0 [facility] Chloride assayOrdered By: Guerra on 01-30-2025 Chloride [Moles/Vol] 104 mmol/L 98-108 [facility] Comprehensive Metabolic Prof ilon 01-30-2025 Albumin [Mass/Vol] 2.8 g/dL Low 3.4-4.8 [facility] Comment on above: Order Comment: 317.1 Performed By: #### L 501.1105, L501.6710, L501.4405, L100.0100, L101.9900, L501.8820 #### [facility] [address] [place], [address] Albumin/Globulin [Mass ratio] 0.8 {ratio} Low 0.9-2.4 [facility] Comment on above: Order Comment: 317.1 Performed By: #### L 501.1105, L501.6710, L501.4405, L100.0100, L101.9900, L501.8820 #### [facility] [address] [place], [address] ALK PHOS 214 U/L High 35-104 [facility] Comment on above: Order Comment: 317.1 Performed By: #### L 501.1105, L501.6710, L501.4405, L100.0100, L101.9900, L501.8820 #### [facility] [address] [place], [address] ALT [Catalytic activity/Vol] 10 U/L Normal <=34 [facility] Comment on above: Order Comment: 317.1 Performed By: #### L 501.1105, L501.6710, L501.4405, L100.0100, L101.9900, L501.8820 #### [facility] [address] [place], [address] AST [Catalytic activity/Vol] 27 U/L Normal <=31 [facility] Comment on above: Order Comment: 317.1 Performed By: #### L 501.1105, L501.6710, L501.4405, L100.0100, L101.9900, L501.8820 #### [facility] [address] [place], [address] Bilirubin [Mass/Vol] 0.27 mg/dL Normal 0.00-1.30 [facility] Comment on above: Order Comment: 317.1 Performed By: #### L 501.1105, L501.6710, L501.4405, L100.0100, L101.9900, L501.8820 #### [facility] [address] [place], [address] BUN/CRE 40.3 RATIO High 10-20 [facility] Comment on above: Order Comment: 317.1 Performed By: #### L 501.1105, L501.6710, L501.4405, L100.0100, L101.9900, L501.8820 #### [facility] [address] [place], [address] Calcium [Mass/Vol] 8.7 mg/dL Normal 7.6-11.0 [facility] Comment on above: Order Comment: 317.1 Performed By: #### L 501.1105, L501.6710, L501.4405, L100.0100, L101.9900, L501.8820 #### [facility] [address] [place], [address] Chloride [Moles/Vol] 104 mmol/L Normal 98-108 [facility] Comment on above: Order Comment: 317.1 Performed By: #### L 501.1105, L501.6710, L501.4405, L100.0100, L101.9900, L501.8820 #### [facility] [address] [place], [address] CO2 [Moles/Vol] 24.9 mmol/L Normal 21.0-32.0 [facility] Comment on above: Order Comment: 317.1 Performed By: #### L 501.1105, L501.6710, L501.4405, L100.0100, L101.9900, L501.8820 #### [facility] [address] [place], [address] Creatinine [Mass/Vol] 0.56 mg/dL Low 0.70-1.20 [place] Comment on above: Order Comment: 317.1 Performed By: #### L 501.1105, L501.6710, L501.4405, L100.0100, L101.9900, L501.8820 #### [facility] [address] [place], [address] GAP 9 Normal 5-15 [facility] Comment on above: Order Comment: 317.1 Performed By: #### L 501.1105, L501.6710, L501.4405, L100.0100, L101.9900, L501.8820 #### [facility] [address] [place], [address] GFR/1.73 sq M.predicted among non-blacks MDRD (S/P/Bld) [Vol rate/Area] 102 mL/min/{1.73_m2} Normal >60 [facility] Comment on above: Order Comment: 317.1 Result Comment: mL/m in/1.73m2 CKD-EPI Creatinine Equation (2020) Performed By: #### L 501.1105, L501.6710, L501.4405, L100.0100, L101.9900, L501.8820 #### [facility] [address] [place], [address] Globulin (S) [Mass/Vol] 3.6 g/dL Normal 2.2-4.2 [facility] Comment on above: Order Comment: 317.1 Performed By: #### L 501.1105, L501.6710, L501.4405, L100.0100, L101.9900, L501.8820 #### [facility] [address] [place], [address] Glucose [Mass/Vol] 102 mg/dL High 70-99 [facility] Comment on above: Order Comment: 317.1 Performed By: #### L 501.1105, L501.6710, L501.4405, L100.0100, L101.9900, L501.8820 #### [facility] [address] [place], [address] Potassium [Moles/Vol] 3.6 mmol/L Normal 3.3-5.1 [place] Comment on above: Order Comment: 317.1 Performed By: #### L 501.1105, L501.6710, L501.4405, L100.0100, L101.9900, L501.8820 #### [facility] [address] [place], [address] Sodium [Moles/Vol] 138 mmol/L Normal 133-145 [facility] Comment on above: Order Comment: 317.1 Performed By: #### L 501.1105, L501.6710, L501.4405, L100.0100, L101.9900, L501.8820 #### [facility] [address] [place], [address] T PROT 6.4 g/dL Normal 5.9-8.4 [facility] Comment on above: Order Comment: 317.1 Performed By: #### L 501.1105, L501.6710, L501.4405, L100.0100, L101.9900, L501.8820 #### [facility] [address] [place], [address] Urea nitrogen [Mass/Vol] 23 mg/dL High 4-19 [facility] Comment on above: Order Comment: 317.1 Performed By: #### L 501.1105, L501.6710, L501.4405, L100.0100, L101.9900, L501.8820 #### [facility] [address] [place], [address] Eosinophil percentageOrdered By: Donavon De La Paz on 01-30-2025 Eosinophils/100 WBC (Bld) 6.1 % High 0-5 [facility] Erythrocyte Sed Rateon 01-30 SED RATE 72 mm/hr High 0-30 [facility] Comment on above: Order Comment: 317.1 Performed By: #### L 501.1105, L501.6710, L501.4405, L100.0100, L101.9900, L501.8820 #### [facility] [place], [address] Erythrocyte distribution wid th ratioOrdered By: Donavon De La Paz on 01-30-2025 Erythrocyte distribution width (RBC) [Ratio] 21.5 % High 11.6-14.6 [facility] Erythrocyte distribution wid th standard deviationOrdered By: Donavon De La Paz on 01-30-2025 Erythrocyte distribution width (RBC) [Ratio] 64.1 fl High 35.1-43.9 [facility] Erythrocyte sedimentation ra teOrdered By: Donavon De La Paz on 01-30-2025 ESR (Bld) [Velocity] 72 mm/h High 0-30 [facility] Glomerular filtration rate ( GFR) estimation/1.73 sq m using serum, plasma, or whole bOrdered By: Donavon De La Paz on 01-30-2025 GFR/1.73 sq M.predicted among non-blacks MDRD (S/P/Bld) [Vol rate/Area] 102 mL/min/{1.73_m2} >60 [facility] Comment on above: mL/min/1.73m2 CKD-EP I Creatinine Equation (2020) Hematocrit Auto (Bld) [Volum e fraction]Ordered By: Donavon De La Paz on 01-30-2025 Hematocrit (Bld) [Volume fraction] 30.0 % Low 37-47 [facility] Hemoglobin measurementOrdere d By: Donavon De La Paz on 01-30-2025 Hemoglobin (Bld) [Mass/Vol] 9.5 g/dL Low 12.0-15.0 [facility] Immature granulocytes/100 WB C Auto (Bld)Ordered By: Donavon De La Paz on 01-30-2025 Immature granulocytes/100 WBC (Bld) 0.400 % 0.0-0.9 [facility] Comment on above: IG% - Immature Granu locytes (promyelocytes, myelocytes and metamyelocytes) > 1% indicates that a LEFT SHIFT is Present. Laboratory - Chemistry and C hemistry - challengeOrdered By: Donavon De La Paz on 01-30-2025 AST [Catalytic activity/Vol] 27 U/L <32 [facility] - Hematology and Cell countsOrdered By: Donavon De La Paz on 01-30-2025 Anisocytosis Ql (Bld) 1+ [place] MCV (mean corpuscular volume ) determinationOrdered By: Donavon De La Paz on 01-30-2025 MCV (RBC) [Entitic vol] 82.4 fL 81-99 [facility] Mean corpuscular hemoglobin (MCH) determinationOrdered By: Donavon De La Paz on 01-30-2025 MCH (RBC) [Entitic mass] 26.1 pg Low 27.0-32.0 [facility] Mean corpuscular hemoglobin concentration (MCHC) determinationOrdered By: Donavon De La Paz on 01-30-2025 MCHC (RBC) [Mass/Vol] 31.7 g/dL Low 32-36 [place] Mean platelet volume determi nationOrdered By: Donavon De La Paz on 01-30-2025 Platelet mean volume (Bld) [Entitic vol] 9.6 fL 6.2-12.0 [facility] Monocyte percentageOrdered B y: Donavon De La Paz on 01-30-2025 Monocytes/100 WBC (Bld) 13.0 % High 0-10 [facility] Neutrophil percentageOrdered By: Donavon De La Paz on 01-30-2025 Neutrophils/100 WBC (Bld) 70.8 % High 47-70 [facility] Nucleated red blood cell per centageOrdered By: Donavon De La Paz on 01-30-2025 Nucleated RBC/100 WBC (Bld) [Ratio] 0 % 0-5 [facility] Platelet countOrdered By: Guerra on 01-30-2025 Platelets (Bld) [#/Vol] 229 10*3/uL 150-450 [facility] Platelet estimateOrdered By: Donavon De La Paz on 01-30-2025 Platelets LM Ql (Bld) A ADEQ [place] Potassium measurement (mass/ volume)Ordered By: Donavon De La Paz on 01-30-2025 Potassium (Unsp spec) [Mass/Vol] 3.6 mmol/L 3.3-5.1 [facility] RBC Auto (Bld) [#/Vol]Ordere d By: Donavon De La Paz on 01-30-2025 RBC (Bld) [#/Vol] 3.64 10*6/uL Low 4.2-5.4 [facility] Serum creatinine measurement (mass/volume)Ordered By: Donavon De La Paz on 01-30-2025 Creatinine [Mass/Vol] 0.56 mg/dL Low 0.70-1.20 [place] Serum globulin measurementOr dered By: Donavon De La Paz on 01-30-2025 Globulin (S) [Mass/Vol] 3.6 g/dL 2.2-4.2 [facility] Serum glucose measurement (m ass/volume)Ordered By: Donavon De La Paz on 01-30-2025 Glucose [Mass/Vol] 102 mg/dL High 70-99 [facility] Serum or plasma C reactive p rotein measurement (mass/volume)Ordered By: Donavon De La Paz on 01-30-2025 CRP [Mass/Vol] 17.70 mg/L High 0.0-3.0 [facility] Serum or plasma alanine gasca otransferase (ALT) measurementOrdered By: Donavon De La Paz on 01-30-2025 ALT [Catalytic activity/Vol] 10 U/L <35 [facility] Serum or plasma albumin gonzalez urement (mass/volume)Ordered By: Donavon De La Paz on 01-30-2025 Albumin [Mass/Vol] 2.8 g/dL Low 3.4-4.8 [facility] Serum or plasma albumin/glob ulin mass ratioOrdered By: Donavon De La Paz on 01-30-2025 Albumin/Globulin [Mass ratio] 0.8 {ratio} Low 0.9-2.4 [facility] Serum or plasma alkaline meghann sphatase measurementOrdered By: Donavon De La Paz on 01-30-2025 ALP [Catalytic activity/Vol] 214 U/L High 35-104 [facility] Serum or plasma calcium gonzalez urement (mass/volume)Ordered By: Donavon De La Paz on 01-30-2025 Calcium [Mass/Vol] 8.7 mg/dL 7.6-11.0 [facility] Serum or plasma urea nitroge n measurement (mass/volume)Ordered By: Donavon De La Paz on 01-30-2025 Urea nitrogen [Mass/Vol] 23 mg/dL High 4-19 [facility] Sodium levelOrdered By: Donavon De La Paz on 01-30-2025 Sodium [Moles/Vol] 138 mmol/L 133-145 [facility] Total proteinOrdered By: Selene De La Paz on 01-30-2025 Protein [Mass/Vol] 6.4 g/dL 5.9-8.4 [facility] Trough vancomycin levelOrder ed By: Donavon De La Paz on 01-30-2025 Vancomycin trough [Mass/Vol] 18.6 ug/mL High 5.0-15.0 [facility] Comment on above: Recommended goal tro ugh ranges are generally 10-15 mcg/ml for less severe/complicated infections such as cellulitis or UTI and 15-20 mcg/ml for more severe/complicated infections such as bacteremia/sepsis, osteomyelitis, pneumonia or meningitis. Goal trough ranges should take into account indication, patient-specific factors and organism DEDRICK.VANCOMYCIN STANDARED DRUG THERAPY TROUGH LEVEL: 5.0 - 15.0 mg/L VANCOMYCIN HIGH INTENSITY THERAPY TROUGH LEVEL: 15.0 - 20.0 mg/L High Intensity therapy recommended for serious lifethreatening infections include:- Btcdxnrqlt-Vugmfxrllfek-Zwopjbxth (Ventilator/Healtcare Associated)-Sepsis PLEASE CONTACT PHARMACY SERVICES (#[id number]) FOR INTERPRETATIONOF RESULTS. Vancomycin, Trough Levelon 0 01-30-2025 VANCO, TROUGH 18.6 ug/mL High 5.0-15.0 [facility] Comment on above: Order Comment: 317.1 Result Comment: Rahul mmended goal trough ranges are generally 10-15 mcg/ml for less severe/complicated infections such as cellulitis or UTI and 15-20 mcg/ml for more severe/complicated infections such as bacteremia/sepsis, osteomyelitis, pneumonia or meningitis. Goal trough ranges should take into account indication, patient-specific factors and organism DEDRICK. VANCOMYCIN STANDARED DRUG THERAPY TROUGH LEVEL: 5.0 - 15.0 mg/L VANCOMYCIN HIGH INTENSITY THERAPY TROUGH LEVEL: 15.0 - 20.0 mg/L High Intensity therapy recommended for serious life threatening infections include: - Meningitis -Endocarditis -Pneumonia (Ventilator/Healtcare Associated) -Sepsis PLEASE CONTACT PHARMACY SERVICES (#[id number]) FOR INTERPRETATION OF RESULTS. Performed By: #### L 501.1105, L501.6710, L501.4405, L100.0100, L101.9900, L501.8820 #### [facility] [address] [place], [place], [id number] White blood cell (WBC) count Ordered By: Donavon De La Paz on 01-30-2025 WBC (Bld) [#/Vol] 10.0 10*3/uL 4.4-11.0 [facility] Absolute lymphocyte countOrd ered By: Donavon De La Paz on 01-22-2025 Lymphocytes Auto (Unsp spec) [#/Vol] 0.91 10*3/uL 0.83-4.51 [facility] Absolute neutrophil countOrd ered By: Donavon De La Paz on 01-22-2025 Neutrophils (Bld) [#/Vol] 8.3 10*3/uL High 2.0-7.7 [facility] Alanine Aminotransferas (SGP T)on 01-22-2025 ALT [Catalytic activity/Vol] 10 U/L Normal <=34 [facility] Comment on above: Order Comment: 317.1 Performed By: #### L 501.1105, L501.6710, L501.4405, L100.0100, L101.9900, L501.8820 #### [facility] [address] [place], [place], [id number] Automated lymphocyte count a s percentage of total leukocytesOrdered By: Donavon De La Paz on 01-22-2025 Lymphocytes/100 WBC Auto (Unsp spec) 8.1 % Low - [facility] Basophil percentageOrdered B y: Donavon De La Paz on 01-22-2025 Basophils/100 WBC (Bld) 0.4 % 0-1 [facility] CBC W/Diff, Automatedon 01-04 Anisocytosis Ql (Bld) 1+ Normal [place] Comment on above: Order Comment: 317.1 Performed By: #### L 501.1105, L501.6710, L501.4405, L100.0100, L101.9900, L501.8820 #### [facility] [address] [place], [place], [id number] CRPon 01-22-2025 C-REACTIVE PROT 39.40 mg/L High 0.0-3.0 [facility] Comment on above: Order Comment: 317.1 Performed By: #### L 501.1105, L501.6710, L501.4405, L100.0100, L101.9900, L501.8820 #### [facility] [address] [place], [place], [id number] Eosinophil percentageOrdered By: Donavon De La Paz on 01-22-2025 Eosinophils/100 WBC (Bld) 6.1 % High 0-5 [facility] Erythrocyte Sed Rateon 01-22 SED RATE 66 mm/hr High 0-30 [facility] Comment on above: Order Comment: 317.1 Performed By: #### L 501.1105, L501.6710, L501.4405, L100.0100, L101.9900, L501.8820 #### [facility] [address] [place], [place], [id number] Erythrocyte distribution wid th ratioOrdered By: Donavon De La Paz on 01-22-2025 Erythrocyte distribution width (RBC) [Ratio] 21.7 % High 11.6-14.6 [facility] Erythrocyte distribution wid th standard deviationOrdered By: Donavon De La Paz on 01-22-2025 Erythrocyte distribution width (RBC) [Ratio] 64.4 fl High 35.1-43.9 [facility] Erythrocyte sedimentation ra teOrdered By: Donavon De La Paz on 01-22-2025 ESR (Bld) [Velocity] 66 mm/h High 0-30 [facility] Glomerular filtration rate ( GFR) estimation/1.73 sq m using serum, plasma, or whole bOrdered By: Donavon De La Paz on 01-22-2025 GFR/1.73 sq M.predicted among non-blacks MDRD (S/P/Bld) [Vol rate/Area] 98 mL/min/{1.73_m2} >60 [facility] Comment on above: mL/min/1.73m2 CKD-EP I Creatinine Equation (2020) Hematocrit Auto (Bld) [Volum e fraction]Ordered By: Donavon De La Paz on 01-22-2025 Hematocrit (Bld) [Volume fraction] 27.0 % Low 37-47 [facility] Hemoglobin measurementOrdere d By: Donavon De La Paz on 01-22-2025 Hemoglobin (Bld) [Mass/Vol] 8.6 g/dL Low 12.0-15.0 [facility] Immature granulocytes/100 WB C Auto (Bld)Ordered By: Donavon De La Paz on 01-22-2025 Immature granulocytes/100 WBC (Bld) 0.500 % 0.0-0.9 [facility] Comment on above: IG% - Immature Granu locytes (promyelocytes, myelocytes and metamyelocytes) > 1% indicates that a LEFT SHIFT is Present. Laboratory - Hematology and Cell countsOrdered By: Donavon De La Paz on 01-22-2025 Anisocytosis Ql (Bld) 1+ [place] MCV (mean corpuscular volume ) determinationOrdered By: Donavon De La Paz on 01-22-2025 MCV (RBC) [Entitic vol] 81.6 fL 81-99 [facility] Mean corpuscular hemoglobin (MCH) determinationOrdered By: Donavon De La Paz on 01-22-2025 MCH (RBC) [Entitic mass] 26.0 pg Low 27.0-32.0 [facility] Mean corpuscular hemoglobin concentration (MCHC) determinationOrdered By: Donavon De La Paz on 01-22-2025 MCHC (RBC) [Mass/Vol] 31.9 g/dL Low 32-36 [place] Mean platelet volume determi nationOrdered By: Donavon De La Paz on 01-22-2025 Platelet mean volume (Bld) [Entitic vol] 9.6 fL 6.2-12.0 [facility] Monocyte percentageOrdered B y: Donavon De La Paz on 01-22-2025 Monocytes/100 WBC (Bld) 11.4 % High 0-10 [facility] Neutrophil percentageOrdered By: Donavon De La Paz on 01-22-2025 Neutrophils/100 WBC (Bld) 73.5 % High 47-70 [facility] Nucleated red blood cell per centageOrdered By: Donavon De La Paz on 01-22-2025 Nucleated RBC/100 WBC (Bld) [Ratio] 0 % 0-5 [facility] Platelet countOrdered By: Guerra on 01-22-2025 Platelets (Bld) [#/Vol] 242 10*3/uL 150-450 [facility] RBC Auto (Bld) [#/Vol]Ordere d By: Donavon De La Paz on 01-22-2025 RBC (Bld) [#/Vol] 3.31 10*6/uL Low 4.2-5.4 [facility] Serum Creatinine AND GFRon 0 01-22-2025 Creatinine [Mass/Vol] 0.65 mg/dL Low 0.70-1.20 [place] Comment on above: Order Comment: 317.1 Performed By: #### L 501.1105, L501.6710, L501.4405, L100.0100, L101.9900, L501.8820 #### [facility] [address] [place], [place], [id number] [phone] GFR/1.73 sq M.predicted among non-blacks MDRD (S/P/Bld) [Vol rate/Area] 98 mL/min/{1.73_m2} Normal >60 [facility] Comment on above: Order Comment: 317.1 Result Comment: mL/m in/1.73m2 CKD-EPI Creatinine Equation (2020) Performed By: #### L 501.1105, L501.6710, L501.4405, L100.0100, L101.9900, L501.8820 #### [facility] [address] [place], [address] Serum creatinine measurement (mass/volume)Ordered By: Donavon De La Paz on 01-22-2025 Creatinine [Mass/Vol] 0.65 mg/dL Low 0.70-1.20 [place] Serum or plasma C reactive p rotein measurement (mass/volume)Ordered By: Donavon De La Paz on 01-22-2025 CRP [Mass/Vol] 39.40 mg/L High 0.0-3.0 [facility] Serum or plasma alanine gasca otransferase (ALT) measurementOrdered By: Donavon De La Paz on 01-22-2025 ALT [Catalytic activity/Vol] 10 U/L <35 [facility] Trough vancomycin levelOrder ed By: Donavon De La Paz on 01-22-2025 Vancomycin trough [Mass/Vol] 19.3 ug/mL High 5.0-15.0 [facility] Comment on above: Recommended goal tro ugh ranges are generally 10-15 mcg/ml for less severe/complicated infections such as cellulitis or UTI and 15-20 mcg/ml for more severe/complicated infections such as bacteremia/sepsis, osteomyelitis, pneumonia or meningitis. Goal trough ranges should take into account indication, patient-specific factors and organism DEDRICK.VANCOMYCIN STANDARED DRUG THERAPY TROUGH LEVEL: 5.0 - 15.0 mg/L VANCOMYCIN HIGH INTENSITY THERAPY TROUGH LEVEL: 15.0 - 20.0 mg/L High Intensity therapy recommended for serious lifethreatening infections include:- Xhunxvauys-Sqhhlzwdbick-Mqnfngpxp (Ventilator/Healtcare Associated)-Sepsis PLEASE CONTACT PHARMACY SERVICES (#[id number]) FOR INTERPRETATIONOF RESULTS. Vancomycin, Trough Levelon 0 01-22-2025 VANCO, TROUGH 19.3 ug/mL High 5.0-15.0 [facility] Comment on above: Order Comment: 317.1 0000 Result Comment: Rahul mmended goal trough ranges are generally 10-15 mcg/ml for less severe/complicated infections such as cellulitis or UTI and 15-20 mcg/ml for more severe/complicated infections such as bacteremia/sepsis, osteomyelitis, pneumonia or meningitis. Goal trough ranges should take into account indication, patient-specific factors and organism DEDRICK. VANCOMYCIN STANDARED DRUG THERAPY TROUGH LEVEL: 5.0 - 15.0 mg/L VANCOMYCIN HIGH INTENSITY THERAPY TROUGH LEVEL: 15.0 - 20.0 mg/L High Intensity therapy recommended for serious life threatening infections include: - Meningitis -Endocarditis -Pneumonia (Ventilator/Healtcare Associated) -Sepsis PLEASE CONTACT PHARMACY SERVICES (#[id number]) FOR INTERPRETATION OF RESULTS. Performed By: #### L 501.1105, L501.6710, L501.4405, L100.0100, L101.9900, L501.8820 #### [facility] [address] [place], [address] White blood cell (WBC) count Ordered By: Donavon De La Paz on 01-22-2025 WBC (Bld) [#/Vol] 11.3 10*3/uL High 4.4-11.0 [facility] CNOVon 01-19-2025 CNOV Normal [facility] ALBUMINon 01-17-2025 Albumin [Mass/Vol] 3.1 g/dL Low 3.9 - 4.9 g/dL [facility] Albumin SerPl-mCncon Albumin [Mass/Vol] 3.1 g/dL Low 3.9-4.9 [facility] Comment on above: Order Comment: Speci men Type: BLOOD SPECIMENOrdering Facility: [facility] Address: [facility] [place] [address] Performed By: #### 1 751-7 ####[facility] [id number] [place] [address] [place] Albumin [Mass/Vol]on 025 Interpretation and review of laboratory results Abnormal [facility] HbA1c (Bld)on 01-17-2025 Average glucose Estimated from glycated hemoglobin (Bld) [Mass/Vol] 157 mg/dL [facility] Comment on above: eAG: (Estimated aver age glucose) is a calculated value from HgbA1c and is business center representative of the average blood glucose level in the last 2-3 month period. HbA1c (Bld) [Mass fraction] 7.1 % High 4.3 - 5.6 % [facility] Comment on above: [place] Diabetes [employer] sociation guidelines indicate that patients with HgbA1c in the range 5.7-6.4% are at increased risk for development of diabetes, and intervention by lifestyle modification may be beneficial. HgbA1c greater or equal to 6.5% is considered diagnostic of diabetes. Interpretation and review of laboratory results Abnormal [facility] Average glucose Estimated from glycated hemoglobin (Bld) [Mass/Vol] 157 mg/dL Normal [facility] Comment on above: Order Comment: Speci men Type: BLOOD SPECIMENOrdering Facility: [facility] Address: [address] [place] [address] Result Comment: eAG: (Estimated average glucose) is a calculated value from HgbA1c and is business center representative of the average blood glucose level in the last 2-3 month period. Performed By: #### 5 [id number] ####[facility] [id number] [place] [address] [place] HbA1c (Bld) [Mass fraction] 7.1 % High 4.3-5.6 [facility] Comment on above: Order Comment: Speci lynette Type: BLOOD SPECIMENOrdering Facility: [facility] Address: [address] [place] [address] Result Comment: [place] [employer] guidelines indicate that patients with HgbA1c in the range 5.7-6.4% are at increased risk for development of diabetes, and intervention by lifestyle modification may be beneficial. HgbA1c greater or equal to 6.5% is considered diagnostic of diabetes. Performed By: #### 5 5454-3 ####[facility] LABCLIA [id number] [address] [place] Absolute lymphocyte countOrd ered By: Donavon De La Paz on 01-15-2025 Lymphocytes Auto (Unsp spec) [#/Vol] 0.84 10*3/uL 0.83-4.51 [facility] Absolute neutrophil countOrd ered By: Donavon De La Paz on 01-15-2025 Neutrophils (Bld) [#/Vol] 6.3 10*3/uL 2.0-7.7 [facility] Alanine Aminotransferas (SGP T)on 01-15-2025 ALT [Catalytic activity/Vol] 11 U/L Normal <=34 [facility] Comment on above: Order Comment: 317.1 Performed By: #### L 501.1105, L501.6710, L501.4405, L100.0100, L101.9900, L501.8820 #### [facility] [address] [place], [place], [id number] Automated lymphocyte count a s percentage of total leukocytesOrdered By: Donavon De La Paz on 01-15-2025 Lymphocytes/100 WBC Auto (Unsp spec) 9.3 % Low 19-41 [facility] Basophil percentageOrdered B y: Donavon De La Paz on 01-15-2025 Basophils/100 WBC (Bld) 0.4 % 0-1 [facility] CBC W/Diff, Automatedon 01-04 Anisocytosis Ql (Bld) 1+ Normal [place] Comment on above: Order Comment: 317.1 Performed By: #### L 501.1105, L501.6710, L501.4405, L100.0100, L101.9900, L501.8820 #### [facility] [address] [place], [address] CRPon 01-15-2025 C-REACTIVE PROT 31.70 mg/L High 0.0-3.0 [facility] Comment on above: Order Comment: 317.1 Performed By: #### L 501.1105, L501.6710, L501.4405, L100.0100, L101.9900, L501.8820 #### [facility] [address] [place], [place], [id number] Eosinophil percentageOrdered By: Donavon De La Paz on 01-15-2025 Eosinophils/100 WBC (Bld) 11.5 % High 0-5 [facility] Erythrocyte Sed Rateon 01-15 SED RATE 74 mm/hr High 0-30 [facility] Comment on above: Order Comment: 317.1 Performed By: #### L 501.1105, L501.6710, L501.4405, L100.0100, L101.9900, L501.8820 #### [facility] [address] [place], [place], [id number] Erythrocyte distribution wid th ratioOrdered By: Donavon De La Paz on 01-15-2025 Erythrocyte distribution width (RBC) [Ratio] 21.2 % High 11.6-14.6 [facility] Erythrocyte distribution wid th standard deviationOrdered By: Donavon De La Paz on 01-15-2025 Erythrocyte distribution width (RBC) [Ratio] 62.5 fl High 35.1-43.9 [facility] Erythrocyte sedimentation ra teOrdered By: Donavon De La Paz on 01-15-2025 ESR (Bld) [Velocity] 74 mm/h High 0-30 [facility] Glomerular filtration rate ( GFR) estimation/1.73 sq m using serum, plasma, or whole bOrdered By: Donavon De La Paz on 01-15-2025 GFR/1.73 sq M.predicted among non-blacks MDRD (S/P/Bld) [Vol rate/Area] 94 mL/min/{1.73_m2} >60 [facility] Comment on above: mL/min/1.73m2 CKD-EP I Creatinine Equation (2020) Hematocrit Auto (Bld) [Volum e fraction]Ordered By: Donavon De La Paz on 01-15-2025 Hematocrit (Bld) [Volume fraction] 27.3 % Low 37-47 [facility] Hemoglobin measurementOrdere d By: Donavon De La Paz on 01-15-2025 Hemoglobin (Bld) [Mass/Vol] 8.7 g/dL Low 12.0-15.0 [facility] Immature granulocytes/100 WB C Auto (Bld)Ordered By: Donavon De La Paz on 01-15-2025 Immature granulocytes/100 WBC (Bld) 0.400 % 0.0-0.9 [facility] Comment on above: IG% - Immature Granu locytes (promyelocytes, myelocytes and metamyelocytes) > 1% indicates that a LEFT SHIFT is Present. Laboratory - Hematology and Cell countsOrdered By: Donavon De La Paz on 01-15-2025 Anisocytosis Ql (Bld) 1+ [place] MCV (mean corpuscular volume ) determinationOrdered By: Donavon De La Paz on 01-15-2025 MCV (RBC) [Entitic vol] 81.3 fL 81-99 [facility] Mean corpuscular hemoglobin (MCH) determinationOrdered By: Donavon De La Paz on 01-15-2025 MCH (RBC) [Entitic mass] 25.9 pg Low 27.0-32.0 [facility] Mean corpuscular hemoglobin concentration (MCHC) determinationOrdered By: Donavon De La Paz on 01-15-2025 MCHC (RBC) [Mass/Vol] 31.9 g/dL Low 32-36 [place] Mean platelet volume determi nationOrdered By: Donavon De La Paz on 01-15-2025 Platelet mean volume (Bld) [Entitic vol] 9.7 fL 6.2-12.0 [facility] Monocyte percentageOrdered B y: Donavon De La Paz on 01-15-2025 Monocytes/100 WBC (Bld) 9.2 % 0-10 [facility] Neutrophil percentageOrdered By: Donavon De La Paz on 01-15-2025 Neutrophils/100 WBC (Bld) 69.2 % 47-70 [facility] Nucleated red blood cell per centageOrdered By: Donavon De La Paz on 01-15-2025 Nucleated RBC/100 WBC (Bld) [Ratio] 0 % 0-5 [facility] Platelet countOrdered By: Guerra on 01-15-2025 Platelets (Bld) [#/Vol] 229 10*3/uL 150-450 [facility] RBC Auto (Bld) [#/Vol]Ordere d By: Donavon De La Paz on 01-15-2025 RBC (Bld) [#/Vol] 3.36 10*6/uL Low 4.2-5.4 [facility] Serum Creatinine AND GFRon 0 01-15-2025 Creatinine [Mass/Vol] 0.72 mg/dL Normal 0.70-1.20 [place] Comment on above: Order Comment: 317.1 Performed By: #### L 501.1105, L501.6710, L501.4405, L100.0100, L101.9900, L501.8820 #### [facility] [address] [place], [place], [id number] GFR/1.73 sq M.predicted among non-blacks MDRD (S/P/Bld) [Vol rate/Area] 94 mL/min/{1.73_m2} Normal >60 [facility] Comment on above: Order Comment: 317.1 Result Comment: mL/m in/1.73m2 CKD-EPI Creatinine Equation (2020) Performed By: #### L 501.1105, L501.6710, L501.4405, L100.0100, L101.9900, L501.8820 #### [facility] [place], [address] Serum creatinine measurement (mass/volume)Ordered By: Donavon De La Paz on 01-15-2025 Creatinine [Mass/Vol] 0.72 mg/dL 0.70-1.20 [place] Serum or plasma C reactive p rotein measurement (mass/volume)Ordered By: Donavon De La Paz on 01-15-2025 CRP [Mass/Vol] 31.70 mg/L High 0.0-3.0 [facility] Serum or plasma alanine gasca otransferase (ALT) measurementOrdered By: Donavon De La Paz on 01-15-2025 ALT [Catalytic activity/Vol] 11 U/L <35 [facility] Trough vancomycin levelOrder ed By: Donavon De La Paz on 01-15-2025 Vancomycin trough [Mass/Vol] 18.7 ug/mL High 5.0-15.0 [facility] Comment on above: Recommended goal tro ugh ranges are generally 10-15 mcg/ml for less severe/complicated infections such as cellulitis or UTI and 15-20 mcg/ml for more severe/complicated infections such as bacteremia/sepsis, osteomyelitis, pneumonia or meningitis. Goal trough ranges should take into account indication, patient-specific factors and organism DEDRICK.VANCOMYCIN STANDARED DRUG THERAPY TROUGH LEVEL: 5.0 - 15.0 mg/L VANCOMYCIN HIGH INTENSITY THERAPY TROUGH LEVEL: 15.0 - 20.0 mg/L High Intensity therapy recommended for serious lifethreatening infections include:- Inpvcoensy-Vbottowyhoyq-Kiwefaqui (Ventilator/Healtcare Associated)-Sepsis PLEASE CONTACT PHARMACY SERVICES (#[id number]) FOR INTERPRETATIONOF RESULTS. Vancomycin, Trough Levelon 0 01-15-2025 VANCO, TROUGH 18.7 ug/mL High 5.0-15.0 [facility] Comment on above: Order Comment: 317.1 Result Comment: Rahul mmended goal trough ranges are generally 10-15 mcg/ml for less severe/complicated infections such as cellulitis or UTI and 15-20 mcg/ml for more severe/complicated infections such as bacteremia/sepsis, osteomyelitis, pneumonia or meningitis. Goal trough ranges should take into account indication, patient-specific factors and organism DEDRICK. VANCOMYCIN STANDARED DRUG THERAPY TROUGH LEVEL: 5.0 - 15.0 mg/L VANCOMYCIN HIGH INTENSITY THERAPY TROUGH LEVEL: 15.0 - 20.0 mg/L High Intensity therapy recommended for serious life threatening infections include: - Meningitis -Endocarditis -Pneumonia (Ventilator/Healtcare Associated) -Sepsis PLEASE CONTACT PHARMACY SERVICES (#[id number]) FOR INTERPRETATION OF RESULTS. Performed By: #### L 501.1105, L501.6710, L501.4405, L100.0100, L101.9900, L501.8820 #### [facility] [address] [place] [address]. [place], [address] White blood cell (WBC) count Ordered By: Donavon De La Paz on 01-15-2025 WBC (Bld) [#/Vol] 9.0 10*3/uL 4.4-11.0 [facility] CNOVon [place]20[place] [facility] [place]BORAHN Telephone (BERNADINEMED) SHADE BRAMBILA ([id number]) 1960 F Date Time Provider Department 01/10/25 GIOVANNI CERRATO During your visit today, we recorded the following information about you: Rimma Laws MA 01/10/2025 3:40 PM Signed Received a request for office notes from ADS Notes from: 10/25/2024 Faxed to: [phone] Transmission Successful. Allergies As of Date: 01/10/2025 Noted Allergy Reaction AMOXICILLIN 11/26/2022 16 - Unknown Comments: Patient does not remember reaction SILICONE 06/22/2024 2 - Rash 9 - Itching Comments: Dressing with silicone border caused inflammation where the bandage was placed CODEINE 09/26/2022 5 - Intolerance Comments: Patient states Makes her Hyper MORPHINE 08/17/2023 5 - Intolerance Comments: Difficulty waking up / groggy Date Reviewed: 01/04/2025 Reviewed by: Amena Leonard RN - Fully Assessed Reason for Visit: Office Notes [Other] Cmt: ADS Prescriptions as of 01/10/2025 - cefTRIAXone sodium (ROCEPHIN) 2 gram solr Inject 2 g intravenously once daily. - ferrous sulfate 325 mg (65 mg iron) EC tablet Take 325 mg by mouth once daily. - metroNIDAZOLE (FLAGYL) 500 mg tablet Take 500 mg by mouth three times a day. - lisinopril (ZESTRIL) 20 mg tablet Take 20 mg by mouth once daily. - multivitamin with minerals (VISION/OPTIGEN) tablet Take 1 tablet by mouth once daily. - L.acidophilus-L.rhamno madelaine (PROBIOTIC) 15 billion cell capsule Take 1 capsule by mouth once daily. - traMADol (ULTRAM) 50 mg tablet Take 50 mg by mouth two times a day. For pain. - ascorbic acid, vitamin C, (VITAMIN C) 500 mg tablet Take 500 mg by mouth two times a day. - ZINC ORAL Take 1 tablet by mouth once daily. - vancomycin/water for inj, PEG, (VANCOMYCIN-DILUENT COMBO NO.1) 1 gram/200 mL pgbk Inject intravenously once daily. - ondansetron (ZOFRAN) 4 mg tablet Take 1 tablet by mouth one time only for 1 dose. - furosemide (LASIX) 20 mg tablet Take 1 tablet by mouth once daily. 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 Dissolve dose in 4 - 8 ounces of liquid and take as directed. - Blood-Glucose Sensor (DEXCOM G7 SENSOR) edita For continuous glucose monitoring - Blood-Glucose Meter,Continuous (DEXCOM G7 CLAIMS ADJUSTOR) misc For continuous glucose monitoring. - GLUCAGON EMERGENCY KIT, HUMAN, INJECTION by INJECTION(UNSPECIFIED PARENTERAL ROUTES) route. - sodium phosphate,mono-dibasic (ENEMA RECTAL) by RECTAL route as needed (constipation). may be given daily, if needed - bisacodyl (DULCOLAX) 10 mg supp 10 mg by RECTAL route once daily as needed for constipation. - senna-docusate (SENEXON-S) 8.6-50 mg per tablet Take 1 tablet by mouth as needed for constipation. - naloxone (NARCAN) 1 mg/mL for intranasal administration 1 mg by INTRANASAL route as needed for known or suspected opioid overdose. Once for opioid overdose may repeat every 2-3 min - insulin lispro 100 unit/mL injection Sliding scale- Blood sugar 111-150 Give 0 units 151-200 Give 1 unit 201-250 Give 2 units 251-300 Give 3 units 301-350 Give 4 units 351-400 Give 5 units Greater than 400 Give 5 units and Notify Provider - fluticasone (FLONASE) 50 mcg/actuation nasal spray Use 2 sprays in each nostril once daily. - ondansetron (ZOFRAN) 4 mg tablet Take 4 mg by mouth every 8 hours as needed for nausea/vomiting. - traMADol (ULTRAM) 50 mg tablet Take 50 mg by mouth every 6 hours as needed for pain. - acetaminophen (TYLENOL) 325 mg tablet Take 2 tablets by mouth every 6 hours as needed for fever (specify temp.) or pain (temp >100.1F). - senna (SENOKOT) 8.6 mg tab Take 1 tablet by mouth two times a day. - empagliflozin (JARDIANCE) 25 mg tablet TAKE 1 TABLET BY MOUTH EVERY DAY WITH BREAKFAST - ACCU-CHEK JOSE PLUS TEST STRP test strip USE TO TEST BLOOD GLUCOSE 3 TIMES DAILY - enalapril (VASOTEC) 20 mg tablet Take 0.5 tablets by mouth two times a day. - atorvastatin (LIPITOR) 80 mg tablet take 1 tablet by mouth every day - ascorbic acid (VITAMIN C ORAL) Take 500 mg by mouth two times a day. - aspirin, enteric coated (ASPIRIN, ENTERIC COATED) 81 mg EC tablet Take 81 mg by mouth once daily. - cyanocobalamin, vitamin B-12, 1,000 mcg/mL kit 1,000 mcg by INJECTION(UNSPECIFIED PARENTERAL ROUTES) route once every month. - Blood Pressure Monitor Please monitor blood pressure 1-2 hours after taking morning medications. - FLUoxetine (PROZAC) 40 mg capsule Take by mouth q 24 HR. - lancets (ONE TOUCH DELICA) 33 gauge USE TO BLOOD GLUCOSE 3 TIMES DAILY. INSULIN DEPENDENT E11.3299, E11.65, Z79.4 - insulin needles, DISPOSABLE, (BD INSULIN PEN NEEDLE UF) 31 gauge x 5/16 FOUR DAILY FOR INSULIN INJECTIONS. - Blood-Glucose Meter misc Use to test blood glucose 3 times daily. Insuli (more content not included)... Normal [facility] Trough vancomycin levelOrder ed By: Donavon De La Paz on 01-09-2025 Vancomycin trough [Mass/Vol] 18.9 ug/mL High 5.0-15.0 [facility] Comment on above: Recommended goal tro ugh ranges are generally 10-15 mcg/ml for less severe/complicated infections such as cellulitis or UTI and 15-20 mcg/ml for more severe/complicated infections such as bacteremia/sepsis, osteomyelitis, pneumonia or meningitis. Goal trough ranges should take into account indication, patient-specific factors and organism DEDRICK.VANCOMYCIN STANDARED DRUG THERAPY TROUGH LEVEL: 5.0 - 15.0 mg/L VANCOMYCIN HIGH INTENSITY THERAPY TROUGH LEVEL: 15.0 - 20.0 mg/L High Intensity therapy recommended for serious lifethreatening infections include:- Xoyifmqstr-Jamjcwuaykfi-Xprorvuhr (Ventilator/Healtcare Associated)-Sepsis PLEASE CONTACT PHARMACY SERVICES (#[id number]) FOR INTERPRETATIONOF RESULTS. Vancomycin, Trough Levelon 0 01-09-2025 VANCO, TROUGH 18.9 ug/mL High 5.0-15.0 [facility] Comment on above: Order Comment: 317.1 0000 Result Comment: Rahul mmended goal trough ranges are generally 10-15 mcg/ml for less severe/complicated infections such as cellulitis or UTI and 15-20 mcg/ml for more severe/complicated infections such as bacteremia/sepsis, osteomyelitis, pneumonia or meningitis. Goal trough ranges should take into account indication, patient-specific factors and organism DEDRICK. VANCOMYCIN STANDARED DRUG THERAPY TROUGH LEVEL: 5.0 - 15.0 mg/L VANCOMYCIN HIGH INTENSITY THERAPY TROUGH LEVEL: 15.0 - 20.0 mg/L High Intensity therapy recommended for serious life threatening infections include: - Meningitis -Endocarditis -Pneumonia (Ventilator/Healtcare Associated) -Sepsis PLEASE CONTACT PHARMACY SERVICES (#[id number]) FOR INTERPRETATION OF RESULTS. Performed By: #### L 501.1105, L501.6710, L501.4405, L100.0100, L101.9900, L501.8820 #### [facility] [address] [place], [place], [id number] Absolute lymphocyte countOrd ered By: Donavon De La Paz on 01-08-2025 Lymphocytes Auto (Unsp spec) [#/Vol] 1.04 10*3/uL 0.83-4.51 [facility] Absolute neutrophil countOrd ered By: Donavon De La Paz on 01-08-2025 Neutrophils (Bld) [#/Vol] 8.1 10*3/uL High 2.0-7.7 [facility] Alanine Aminotransferas (SGP T)on 01-08-2025 ALT [Catalytic activity/Vol] 11 U/L Normal <=34 [facility] Comment on above: Order Comment: 317.1 0000 Performed By: #### L 501.1105, L501.6710, L501.4405, L100.0100, L101.9900, L501.8820 #### [facility] [address] [place], [place], [id number] Automated lymphocyte count a s percentage of total leukocytesOrdered By: Donavon De La Paz on 01-08-2025 Lymphocytes/100 WBC Auto (Unsp spec) 9.2 % Low 19-41 [facility] Basophil percentageOrdered B y: Donavon De La Paz on 01-08-2025 Basophils/100 WBC (Bld) 0.3 % 0-1 [facility] Blood polychromasia detectio n by light microscopyOrdered By: Donavon De La Paz on 01-08-2025 Polychromasia LM Ql (Bld) 1+ [facility] CBC W/Diff, Automatedon 0 Anisocytosis Ql (Bld) 1+ Normal [place] Comment on above: Order Comment: 317.1 0000 Performed By: #### L 501.1105, L501.6710, L501.4405, L100.0100, L101.9900, L501.8820 #### [facility] [address] [place], [address] PLT EST A Normal ADEQ [facility] Comment on above: Order Comment: 317.1 0000 Performed By: #### L 501.1105, L501.6710, L501.4405, L100.0100, L101.9900, L501.8820 #### [facility] [address] [place], [place], [id number] POLYCHROMASIA 1+ Normal [facility] Comment on above: Order Comment: 317.1 0000 Performed By: #### L 501.1105, L501.6710, L501.4405, L100.0100, L101.9900, L501.8820 #### [facility] [address] [place], [address] CRPon 01-08-2025 C-REACTIVE PROT 17.70 mg/L High 0.0-3.0 [facility] Comment on above: Order Comment: 317.1 0000 Performed By: #### L 501.1105, L501.6710, L501.4405, L100.0100, L101.9900, L501.8820 #### [facility] [address] [place], [place], [id number] Eosinophil percentageOrdered By: Donavon De La Paz on 01-08-2025 Eosinophils/100 WBC (Bld) 9.5 % High 0-5 [facility] Erythrocyte Sed Rateon 01-08 SED RATE 60 mm/hr High 0-30 [facility] Comment on above: Order Comment: 317.1 0000 Performed By: #### L 501.1105, L501.6710, L501.4405, L100.0100, L101.9900, L501.8820 #### [facility] [address] [place], [address] Erythrocyte distribution wid th ratioOrdered By: Donavon De La Paz on 01-08-2025 Erythrocyte distribution width (RBC) [Ratio] 20.3 % High 11.6-14.6 [facility] Erythrocyte distribution wid th standard deviationOrdered By: Donavon De La Paz on 01-08-2025 Erythrocyte distribution width (RBC) [Ratio] 58.6 fl High 35.1-43.9 [facility] Erythrocyte sedimentation ra teOrdered By: Donavon De La Paz on 01-08-2025 ESR (Bld) [Velocity] 60 mm/h High 0-30 [facility] Glomerular filtration rate ( GFR) estimation/1.73 sq m using serum, plasma, or whole bOrdered By: Donavon De La Paz on 01-08-2025 GFR/1.73 sq M.predicted among non-blacks MDRD (S/P/Bld) [Vol rate/Area] 98 mL/min/{1.73_m2} >60 [facility] Comment on above: mL/min/1.73m2 CKD-EP I Creatinine Equation (2020) Hematocrit Auto (Bld) [Volum e fraction]Ordered By: Donavon De La Paz on 01-08-2025 Hematocrit (Bld) [Volume fraction] 28.0 % Low 37-47 [facility] Hemoglobin measurementOrdere d By: Donavon De La Paz on 01-08-2025 Hemoglobin (Bld) [Mass/Vol] 8.8 g/dL Low 12.0-15.0 [facility] Immature granulocytes/100 WB C Auto (Bld)Ordered By: Donavon De La Paz on 01-08-2025 Immature granulocytes/100 WBC (Bld) 0.400 % 0.0-0.9 [facility] Comment on above: IG% - Immature Granu locytes (promyelocytes, myelocytes and metamyelocytes) > 1% indicates that a LEFT SHIFT is Present. Laboratory - Hematology and Cell countsOrdered By: Donavon De La Paz on 01-08-2025 Anisocytosis Ql (Bld) 1+ [place] MCV (mean corpuscular volume ) determinationOrdered By: Donavon De La Paz on 01-08-2025 MCV (RBC) [Entitic vol] 79.5 fL Low 81-99 [facility] Mean corpuscular hemoglobin (MCH) determinationOrdered By: Donavon De La Paz on 01-08-2025 MCH (RBC) [Entitic mass] 25.0 pg Low 27.0-32.0 [facility] Mean corpuscular hemoglobin concentration (MCHC) determinationOrdered By: Donavon De La Paz on 01-08-2025 MCHC (RBC) [Mass/Vol] 31.4 g/dL Low 32-36 [place] Mean platelet volume determi nationOrdered By: Donavon De La Paz on 01-08-2025 Platelet mean volume (Bld) [Entitic vol] 9.2 fL 6.2-12.0 [facility] Monocyte percentageOrdered B y: Donavon De La Paz on 01-08-2025 Monocytes/100 WBC (Bld) 9.3 % 0-10 [facility] Neutrophil percentageOrdered By: Donavon De La Paz on 01-08-2025 Neutrophils/100 WBC (Bld) 71.3 % High 47-70 [facility] Nucleated red blood cell per centageOrdered By: Donavon De La Paz on 01-08-2025 Nucleated RBC/100 WBC (Bld) [Ratio] 0 % 0-5 [facility] Platelet countOrdered By: Guerra on 01-08-2025 Platelets (Bld) [#/Vol] 231 10*3/uL 150-450 [facility] Platelet estimateOrdered By: Donavon De La Paz on 01-08-2025 Platelets LM Ql (Bld) A ADEQ [place] RBC Auto (Bld) [#/Vol]Ordere d By: Donavon De La Paz on 01-08-2025 RBC (Bld) [#/Vol] 3.52 10*6/uL Low 4.2-5.4 [facility] Serum Creatinine AND GFRon 0 - Creatinine [Mass/Vol] 0.67 mg/dL Low 0.70-1.20 [place] Comment on above: Order Comment: 317.1 0000 Performed By: #### L 501.1105, L501.6710, L501.4405, L100.0100, L101.9900, L501.8820 #### [facility] [place], [address] GFR/1.73 sq M.predicted among non-blacks MDRD (S/P/Bld) [Vol rate/Area] 98 mL/min/{1.73_m2} Normal >60 [facility] Comment on above: Order Comment: 317.1 0000 Result Comment: mL/m in/1.73m2 CKD-EPI Creatinine Equation (2020) Performed By: #### L 501.1105, L501.6710, L501.4405, L100.0100, L101.9900, L501.8820 #### [facility] [address] [place], [address] Serum creatinine measurement (mass/volume)Ordered By: Donavon De La Paz on 01-08-2025 Creatinine [Mass/Vol] 0.67 mg/dL Low 0.70-1.20 [place] Serum or plasma C reactive p rotein measurement (mass/volume)Ordered By: Donavon De La Paz on 01-08-2025 CRP [Mass/Vol] 17.70 mg/L High 0.0-3.0 [facility] Serum or plasma alanine gasca otransferase (ALT) measurementOrdered By: Donavon De La Paz on 01-08-2025 ALT [Catalytic activity/Vol] 11 U/L <35 [facility] Trough vancomycin levelOrder ed By: Donavon De La Paz on 01-08-2025 Vancomycin trough [Mass/Vol] 34.1 ug/mL High 5.0-15.0 [facility] Comment on above: Recommended goal tro ugh ranges are generally 10-15 mcg/ml for less severe/complicated infections such as cellulitis or UTI and 15-20 mcg/ml for more severe/complicated infections such as bacteremia/sepsis, osteomyelitis, pneumonia or meningitis. Goal trough ranges should take into account indication, patient-specific factors and organism DEDRICK.VANCOMYCIN STANDARED DRUG THERAPY TROUGH LEVEL: 5.0 - 15.0 mg/L VANCOMYCIN HIGH INTENSITY THERAPY TROUGH LEVEL: 15.0 - 20.0 mg/L High Intensity therapy recommended for serious lifethreatening infections include:- Nyjicuqebz-Scciunjsvnab-Evwbwwqrp (Ventilator/Healtcare Associated)-Sepsis PLEASE CONTACT PHARMACY SERVICES (#[id number]) FOR INTERPRETATIONOF RESULTS. Vancomycin, Trough Levelon 0 01-08-2025 VANCO, TROUGH 34.1 ug/mL High 5.0-15.0 [facility] Comment on above: Order Comment: 317.1 0000 Result Comment: Rahul mmended goal trough ranges are generally 10-15 mcg/ml for less severe/complicated infections such as cellulitis or UTI and 15-20 mcg/ml for more severe/complicated infections such as bacteremia/sepsis, osteomyelitis, pneumonia or meningitis. Goal trough ranges should take into account indication, patient-specific factors and organism DEDRICK. VANCOMYCIN STANDARED DRUG THERAPY TROUGH LEVEL: 5.0 - 15.0 mg/L VANCOMYCIN HIGH INTENSITY THERAPY TROUGH LEVEL: 15.0 - 20.0 mg/L High Intensity therapy recommended for serious life threatening infections include: - Meningitis -Endocarditis -Pneumonia (Ventilator/Healtcare Associated) -Sepsis PLEASE CONTACT PHARMACY SERVICES (#[id number]) FOR INTERPRETATION OF RESULTS. Performed By: #### L 501.1105, L501.6710, L501.4405, L100.0100, L101.9900, L501.8820 #### [facility] [address] [place], [place] [address] [facility] [place], [address] White blood cell (WBC) count Ordered By: Donavon De La Paz on 01-08-2025 WBC (Bld) [#/Vol] 11.3 10*3/uL High 4.4-11.0 [facility] CNOVon 01-04-2025 [facility]2025 [facility] Absolute lymphocyte countOrd ered By: Donavon De La Paz on 01-01-2025 Lymphocytes Auto (Unsp spec) [#/Vol] 1.31 10*3/uL 0.83-4.51 [facility] Absolute neutrophil countOrd ered By: Donavon De La Paz on 01-01-2025 Neutrophils (Bld) [#/Vol] 6.3 10*3/uL 2.0-7.7 [facility] Alanine Aminotransferas (SGP T)on 01-01-2025 ALT [Catalytic activity/Vol] 11 U/L Normal <=34 [facility] Comment on above: Order Comment: 317.1 Performed By: #### L 501.1105, L501.6710, L501.4405, L100.0100, L101.9900, L501.8820 #### [facility] [address] [place], [address] Automated lymphocyte count a s percentage of total leukocytesOrdered By: Donavon De La Paz on 01-01-2025 Lymphocytes/100 WBC Auto (Unsp spec) 14.3 % Low 19-41 [facility] Basophil percentageOrdered B y: Donavon De La Paz on 01-01-2025 Basophils/100 WBC (Bld) 0.5 % 0-1 [facility] CBC W/Diff, Automatedon 12-06 Absolute Lymph 1.31 X10 3/uL Normal 0.83-4.51 [facility] Comment on above: Order Comment: 317.1 Performed By: #### L 501.1105, L501.6710, L501.4405, L100.0100, L101.9900, L501.8820 #### [facility] [address] [place], [address] Absolute Neut 6.3 X10 3/uL Normal 2.0-7.7 [facility] Comment on above: Order Comment: 317.1 Performed By: #### L 501.1105, L501.6710, L501.4405, L100.0100, L101.9900, L501.8820 #### [facility] [address] [place], [address] Basophils/100 WBC (Bld) 0.5 % Normal 0-1 [facility] Comment on above: Order Comment: 317.1 Performed By: #### L 501.1105, L501.6710, L501.4405, L100.0100, L101.9900, L501.8820 #### [facility] [address] [place], [address] Eosinophils/100 WBC (Bld) 5.2 % High 0-5 [facility] Comment on above: Order Comment: 317.1 Performed By: #### L 501.1105, L501.6710, L501.4405, L100.0100, L101.9900, L501.8820 #### [facility] [address] [place], [address] Erythrocyte distribution width (RBC) [Ratio] 19.1 % High 11.6-14.6 [facility] Comment on above: Order Comment: 317.1 Performed By: #### L 501.1105, L501.6710, L501.4405, L100.0100, L101.9900, L501.8820 #### [facility] [address] [place], [address] Hematocrit (Bld) [Volume fraction] 28.8 % Low 37-47 [facility] Comment on above: Order Comment: 317.1 Performed By: #### L 501.1105, L501.6710, L501.4405, L100.0100, L101.9900, L501.8820 #### [facility] [address] [place], [address] Hemoglobin (Bld) [Mass/Vol] 9.0 g/dL Low 12.0-15.0 [facility] Comment on above: Order Comment: 317.1 Performed By: #### L 501.1105, L501.6710, L501.4405, L100.0100, L101.9900, L501.8820 #### [facility] [address] [place], [address] IG% 0.300 Normal 0.0-0.9 [facility] Comment on above: Order Comment: 317.1 Result Comment: IG% - Immature Granulocytes (promyelocytes, myelocytes and metamyelocytes) > 1% indicates that a LEFT SHIFT is Present. Performed By: #### L 501.1105, L501.6710, L501.4405, L100.0100, L101.9900, L501.8820 #### [facility] [address] [place], [address] Lymphocytes/100 WBC (Bld) 14.3 % Low 19-41 [facility] Comment on above: Order Comment: 317.1 Performed By: #### L 501.1105, L501.6710, L501.4405, L100.0100, L101.9900, L501.8820 #### [facility] [address] [place], [address] MCH (RBC) [Entitic mass] 25.1 pg Low 27.0-32.0 [facility] Comment on above: Order Comment: 317.1 Performed By: #### L 501.1105, L501.6710, L501.4405, L100.0100, L101.9900, L501.8820 #### [facility] [address] [place], [address] MCHC (RBC) [Mass/Vol] 31.3 g/dL Low 32-36 [place] Comment on above: Order Comment: 317.1 Performed By: #### L 501.1105, L501.6710, L501.4405, L100.0100, L101.9900, L501.8820 #### [facility] [address] [place], [address] MCV (RBC) [Entitic vol] 80.2 fL Low 81-99 [facility] Comment on above: Order Comment: 317.1 Performed By: #### L 501.1105, L501.6710, L501.4405, L100.0100, L101.9900, L501.8820 #### [facility] [address] [place], [address] Monocytes/100 WBC (Bld) 10.6 % High 0-10 [facility] Comment on above: Order Comment: 317.1 Performed By: #### L 501.1105, L501.6710, L501.4405, L100.0100, L101.9900, L501.8820 #### [facility] [address] [place], [address] Neutrophils/100 WBC (Bld) 69.1 % Normal 47-70 [facility] Comment on above: Order Comment: 317.1 Performed By: #### L 501.1105, L501.6710, L501.4405, L100.0100, L101.9900, L501.8820 #### [facility] [address] [place], [address] Nucleated RBC (Bld) [#/Vol] 0 10*3/uL Normal 0-5 [facility] Comment on above: Order Comment: 317.1 Performed By: #### L 501.1105, L501.6710, L501.4405, L100.0100, L101.9900, L501.8820 #### [facility] [address] [place], [address] Platelet mean volume (Bld) [Entitic vol] 9.4 fL Normal 6.2-12.0 [facility] Comment on above: Order Comment: 317.1 Performed By: #### L 501.1105, L501.6710, L501.4405, L100.0100, L101.9900, L501.8820 #### [facility] [address] [place], [address] Platelets (Bld) [#/Vol] 228 10*3/uL Normal 150-450 [facility] Comment on above: Order Comment: 317.1 Performed By: #### L 501.1105, L501.6710, L501.4405, L100.0100, L101.9900, L501.8820 #### [facility] [address] [place], [address] RBC (Bld) [#/Vol] 3.59 10*6/uL Low 4.2-5.4 [facility] Comment on above: Order Comment: 317.1 Performed By: #### L 501.1105, L501.6710, L501.4405, L100.0100, L101.9900, L501.8820 #### [facility] [address] [place], [address] RDW SD 54.5 fl High 35.1-43.9 [facility] Comment on above: Order Comment: 317.1 Performed By: #### L 501.1105, L501.6710, L501.4405, L100.0100, L101.9900, L501.8820 #### [facility] [address] [place], [address] WBC (Bld) [#/Vol] 9.2 10*3/uL Normal 4.4-11.0 [facility] Comment on above: Order Comment: 317.1 Performed By: #### L 501.1105, L501.6710, L501.4405, L100.0100, L101.9900, L501.8820 #### [facility] [address] [place], [address] CRPon 01-01-2025 C-REACTIVE PROT 20.00 mg/L High 0.0-3.0 [facility] Comment on above: Order Comment: 317.1 Performed By: #### L 501.1105, L501.6710, L501.4405, L100.0100, L101.9900, L501.8820 #### [facility] [address] [place], [place], [id number] Eosinophil percentageOrdered By: Donavon De La Paz on 01-01-2025 Eosinophils/100 WBC (Bld) 5.2 % High 0-5 [facility] Erythrocyte Sed Rateon 01-01 SED RATE 67 mm/hr High 0-30 [facility] Comment on above: Order Comment: 317.1 Performed By: #### L 501.1105, L501.6710, L501.4405, L100.0100, L101.9900, L501.8820 #### [facility] [address] [place], [address] Erythrocyte distribution wid th ratioOrdered By: Donavon De La Paz on 01-01-2025 Erythrocyte distribution width (RBC) [Ratio] 19.1 % High 11.6-14.6 [facility] Erythrocyte distribution wid th standard deviationOrdered By: Donavon De La Paz on 01-01-2025 Erythrocyte distribution width (RBC) [Ratio] 54.5 fl High 35.1-43.9 [facility] Erythrocyte sedimentation ra teOrdered By: Donavon De La Paz on 01-01-2025 ESR (Bld) [Velocity] 67 mm/h High 0-30 [facility] Glomerular filtration rate ( GFR) estimation/1.73 sq m using serum, plasma, or whole bOrdered By: Donavon De La Paz on 01-01-2025 GFR/1.73 sq M.predicted among non-blacks MDRD (S/P/Bld) [Vol rate/Area] 94 mL/min/{1.73_m2} >60 [facility] Comment on above: mL/min/1.73m2 CKD-EP I Creatinine Equation (2020) Hematocrit Auto (Bld) [Volum e fraction]Ordered By: Donavon De La Paz on 01-01-2025 Hematocrit (Bld) [Volume fraction] 28.8 % Low 37-47 [facility] Hemoglobin measurementOrdere d By: Donavon De La Paz on 01-01-2025 Hemoglobin (Bld) [Mass/Vol] 9.0 g/dL Low 12.0-15.0 [facility] Immature granulocytes/100 WB C Auto (Bld)Ordered By: Donavon De La Paz on 01-01-2025 Immature granulocytes/100 WBC (Bld) 0.300 % 0.0-0.9 [facility] Comment on above: IG% - Immature Granu locytes (promyelocytes, myelocytes and metamyelocytes) > 1% indicates that a LEFT SHIFT is Present. MCV (mean corpuscular volume ) determinationOrdered By: Donavon De La Paz on 01-01-2025 MCV (RBC) [Entitic vol] 80.2 fL Low 81-99 [facility] Mean corpuscular hemoglobin (MCH) determinationOrdered By: Donavon De La Paz on 01-01-2025 MCH (RBC) [Entitic mass] 25.1 pg Low 27.0-32.0 [facility] Mean corpuscular hemoglobin concentration (MCHC) determinationOrdered By: Donavon De La Paz on 01-01-2025 MCHC (RBC) [Mass/Vol] 31.3 g/dL Low 32-36 [place] Mean platelet volume determi nationOrdered By: Donavon De La Paz on 01-01-2025 Platelet mean volume (Bld) [Entitic vol] 9.4 fL 6.2-12.0 [facility] Monocyte percentageOrdered B y: Donavon De La Paz on 01-01-2025 Monocytes/100 WBC (Bld) 10.6 % High 0-10 [facility] Neutrophil percentageOrdered By: Donavon De La Paz on 01-01-2025 Neutrophils/100 WBC (Bld) 69.1 % 47-70 [facility] Nucleated red blood cell per centageOrdered By: Donavon De La Paz on 01-01-2025 Nucleated RBC/100 WBC (Bld) [Ratio] 0 % 0-5 [facility] Platelet countOrdered By: Guerra on 01-01-2025 Platelets (Bld) [#/Vol] 228 10*3/uL 150-450 [facility] RBC Auto (Bld) [#/Vol]Ordere d By: Donavon De La Paz on 01-01-2025 RBC (Bld) [#/Vol] 3.59 10*6/uL Low 4.2-5.4 [facility] Serum Creatinine AND GFRon 0 01-01-2025 Creatinine [Mass/Vol] 0.71 mg/dL Normal 0.70-1.20 [place] Comment on above: Order Comment: 317.1 Performed By: #### L 501.1105, L501.6710, L501.4405, L100.0100, L101.9900, L501.8820 #### [facility] [address] [place], [address] GFR/1.73 sq M.predicted among non-blacks MDRD (S/P/Bld) [Vol rate/Area] 94 mL/min/{1.73_m2} Normal >60 [facility] Comment on above: Order Comment: 317.1 Result Comment: mL/m in/1.73m2 CKD-EPI Creatinine Equation (2020) Performed By: #### L 501.1105, L501.6710, L501.4405, L100.0100, L101.9900, L501.8820 #### [facility] [address] [place], [place], [id number] Serum creatinine measurement (mass/volume)Ordered By: Donavon De La Paz on 01-01-2025 Creatinine [Mass/Vol] 0.71 mg/dL 0.70-1.20 [place] Serum or plasma C reactive p rotein measurement (mass/volume)Ordered By: Donavon De La Paz on 01-01-2025 CRP [Mass/Vol] 20.00 mg/L High 0.0-3.0 [facility] Serum or plasma alanine gasca otransferase (ALT) measurementOrdered By: Donavon De La Paz on 01-01-2025 ALT [Catalytic activity/Vol] 11 U/L <35 [facility] Trough vancomycin levelOrder ed By: Donavon De La Paz on 01-01-2025 Vancomycin trough [Mass/Vol] 17.1 ug/mL High 5.0-15.0 [facility] Comment on above: Recommended goal tro ugh ranges are generally 10-15 mcg/ml for less severe/complicated infections such as cellulitis or UTI and 15-20 mcg/ml for more severe/complicated infections such as bacteremia/sepsis, osteomyelitis, pneumonia or meningitis. Goal trough ranges should take into account indication, patient-specific factors and organism DEDRICK.VANCOMYCIN STANDARED DRUG THERAPY TROUGH LEVEL: 5.0 - 15.0 mg/L VANCOMYCIN HIGH INTENSITY THERAPY TROUGH LEVEL: 15.0 - 20.0 mg/L High Intensity therapy recommended for serious lifethreatening infections include:- Fapbdejfge-Rwgaxlpxvptf-Eerclwzny (Ventilator/Healtcare Associated)-Sepsis PLEASE CONTACT PHARMACY SERVICES (#[id number]) FOR INTERPRETATIONOF RESULTS. Vancomycin, Trough Levelon 0 01-01-2025 VANCO, TROUGH 17.1 ug/mL High 5.0-15.0 [facility] Comment on above: Order Comment: 317.1 Result Comment: Rahul mmended goal trough ranges are generally 10-15 mcg/ml for less severe/complicated infections such as cellulitis or UTI and 15-20 mcg/ml for more severe/complicated infections such as bacteremia/sepsis, osteomyelitis, pneumonia or meningitis. Goal trough ranges should take into account indication, patient-specific factors and organism DEDRICK. VANCOMYCIN STANDARED DRUG THERAPY TROUGH LEVEL: 5.0 - 15.0 mg/L VANCOMYCIN HIGH INTENSITY THERAPY TROUGH LEVEL: 15.0 - 20.0 mg/L High Intensity therapy recommended for serious life threatening infections include: - Meningitis -Endocarditis -Pneumonia (Ventilator/Healtcare Associated) -Sepsis PLEASE CONTACT PHARMACY SERVICES (#[id number]) FOR INTERPRETATION OF RESULTS. Performed By: #### L 501.1105, L501.6710, L501.4405, L100.0100, L101.9900, L501.8820 #### [facility] [address] [place] [address], [address] White blood cell (WBC) count Ordered By: Donavon De La Paz on 01-01-2025 WBC (Bld) [#/Vol] 9.2 10*3/uL 4.4-11.0 [facility] Absolute lymphocyte countOrd ered By: Donavon De La Paz on 12-27-2024 Lymphocytes Auto (Unsp spec) [#/Vol] 1.38 10*3/uL 0.83-4.51 [facility] Absolute neutrophil countOrd ered By: Donavon De La Paz on 12-27-2024 Neutrophils (Bld) [#/Vol] 7.6 10*3/uL 2.0-7.7 [facility] Anion gap in Serum or Plasma Ordered By: Donavon De La Paz on 12-27-2024 Anion gap [Moles/Vol] 9 mmol/L 5-15 [place] Automated lymphocyte count a s percentage of total leukocytesOrdered By: Donavon De La Paz on 12-27-2024 Lymphocytes/100 WBC Auto (Unsp spec) 12.9 % Low 19-41 [facility] BUN/creatinine ratioOrdered By: Donavon De La Paz on 12-27-2024 Urea nitrogen/Creatinine [Mass ratio] 29.5 mg/mg High 10-20 [facility] Basic Metabolic Profile (BMP )on 12-27-2024 BUN/CRE 29.5 RATIO High 10-20 [facility] Comment on above: Order Comment: 317.1 0000 Performed By: #### L 501.1105, L501.6710, L501.4405, L100.0100, L101.9900, L501.8820 #### [facility] [address] [place], [address] Calcium [Mass/Vol] 8.8 mg/dL Normal 7.6-11.0 [facility] Comment on above: Order Comment: 317.1 0000 Performed By: #### L 501.1105, L501.6710, L501.4405, L100.0100, L101.9900, L501.8820 #### [facility] [address] [place], [address] Chloride [Moles/Vol] 103 mmol/L Normal 98-108 [facility] Comment on above: Order Comment: 317.1 0000 Performed By: #### L 501.1105, L501.6710, L501.4405, L100.0100, L101.9900, L501.8820 #### [facility] [address] [place], [address] CO2 [Moles/Vol] 23.8 mmol/L Normal 21.0-32.0 [facility] Comment on above: Order Comment: 317.1 0000 Performed By: #### L 501.1105, L501.6710, L501.4405, L100.0100, L101.9900, L501.8820 #### [facility] [address] [place], [address] Creatinine [Mass/Vol] 0.72 mg/dL Normal 0.70-1.20 [place] Comment on above: Order Comment: 317.1 0000 Performed By: #### L 501.1105, L501.6710, L501.4405, L100.0100, L101.9900, L501.8820 #### [facility] [address] [place], [address] GAP 9 Normal 5-15 [facility] Comment on above: Order Comment: 317.1 0000 Performed By: #### L 501.1105, L501.6710, L501.4405, L100.0100, L101.9900, L501.8820 #### [facility] [address] [place], [address] GFR/1.73 sq M.predicted among non-blacks MDRD (S/P/Bld) [Vol rate/Area] 93 mL/min/{1.73_m2} Normal >60 [facility] Comment on above: Order Comment: 317.1 0000 Result Comment: mL/m in/1.73m2 CKD-EPI Creatinine Equation (2020) Performed By: #### L 501.1105, L501.6710, L501.4405, L100.0100, L101.9900, L501.8820 #### [facility] [address] [place], [address] Glucose [Mass/Vol] 90 mg/dL Normal 70-99 [facility] Comment on above: Order Comment: 317.1 0000 Performed By: #### L 501.1105, L501.6710, L501.4405, L100.0100, L101.9900, L501.8820 #### [facility] [address] [place], [address] Potassium [Moles/Vol] 3.9 mmol/L Normal 3.3-5.1 [place] Comment on above: Order Comment: 317.1 0000 Performed By: #### L 501.1105, L501.6710, L501.4405, L100.0100, L101.9900, L501.8820 #### [facility] [address] [place], [address] Sodium [Moles/Vol] 136 mmol/L Normal 133-145 [facility] Comment on above: Order Comment: 317.1 0000 Performed By: #### L 501.1105, L501.6710, L501.4405, L100.0100, L101.9900, L501.8820 #### [facility] [address] [place], [address] Urea nitrogen [Mass/Vol] 21 mg/dL High 4-19 [facility] Comment on above: Order Comment: 317.1 0000 Performed By: #### L 501.1105, L501.6710, L501.4405, L100.0100, L101.9900, L501.8820 #### [facility] [address] [place], [address] Basophil percentageOrdered B y: Donavon Deperro on 12-27-2024 Basophils/100 WBC (Bld) 0.7 % 0-1 [facility] CBC W/Diff, Automatedon 04-2 Absolute Lymph 1.38 X10 3/uL Normal 0.83-4.51 [facility] Comment on above: Order Comment: 317.1 Performed By: #### L 501.1105, L501.6710, L501.4405, L100.0100, L101.9900, L501.8820 #### [facility] [address] [place], [address] Absolute Neut 7.6 X10 3/uL Normal 2.0-7.7 [facility] Comment on above: Order Comment: 317.1 Performed By: #### L 501.1105, L501.6710, L501.4405, L100.0100, L101.9900, L501.8820 #### [facility] [address] [place], [address] Basophils/100 WBC (Bld) 0.7 % Normal 0-1 [facility] Comment on above: Order Comment: 317.1 Performed By: #### L 501.1105, L501.6710, L501.4405, L100.0100, L101.9900, L501.8820 #### [facility] [address] [place], [address] Eosinophils/100 WBC (Bld) 4.6 % Normal 0-5 [facility] Comment on above: Order Comment: 317.1 Performed By: #### L 501.1105, L501.6710, L501.4405, L100.0100, L101.9900, L501.8820 #### [facility] [address] [place], [address] Erythrocyte distribution width (RBC) [Ratio] 17.9 % High 11.6-14.6 [facility] Comment on above: Order Comment: 317.1 Performed By: #### L 501.1105, L501.6710, L501.4405, L100.0100, L101.9900, L501.8820 #### [facility] [address] [place], [address] Hematocrit (Bld) [Volume fraction] 29.4 % Low 37-47 [facility] Comment on above: Order Comment: 317.1 Performed By: #### L 501.1105, L501.6710, L501.4405, L100.0100, L101.9900, L501.8820 #### [facility] [address] [place], [address] Hemoglobin (Bld) [Mass/Vol] 9.2 g/dL Low 12.0-15.0 [facility] Comment on above: Order Comment: 317.1 Performed By: #### L 501.1105, L501.6710, L501.4405, L100.0100, L101.9900, L501.8820 #### [facility] [address] [place], [address] IG% 0.500 Normal 0.0-0.9 [facility] Comment on above: Order Comment: 317.1 Result Comment: IG% - Immature Granulocytes (promyelocytes, myelocytes and metamyelocytes) > 1% indicates that a LEFT SHIFT is Present. Performed By: #### L 501.1105, L501.6710, L501.4405, L100.0100, L101.9900, L501.8820 #### [facility] [address] [place], [address] Lymphocytes/100 WBC (Bld) 12.9 % Low 19-41 [facility] Comment on above: Order Comment: 317.1 Performed By: #### L 501.1105, L501.6710, L501.4405, L100.0100, L101.9900, L501.8820 #### [facility] [address], [address] MCH (RBC) [Entitic mass] 24.9 pg Low 27.0-32.0 [facility] Comment on above: Order Comment: 317.1 Performed By: #### L 501.1105, L501.6710, L501.4405, L100.0100, L101.9900, L501.8820 #### [facility] [address] [place], [address] MCHC (RBC) [Mass/Vol] 31.3 g/dL Low 32-36 [place] Comment on above: Order Comment: 317.1 Performed By: #### L 501.1105, L501.6710, L501.4405, L100.0100, L101.9900, L501.8820 #### [facility] [address] [place], [address] MCV (RBC) [Entitic vol] 79.5 fL Low 81-99 [facility] Comment on above: Order Comment: 317.1 Performed By: #### L 501.1105, L501.6710, L501.4405, L100.0100, L101.9900, L501.8820 #### [facility] [address] [place], [address] Monocytes/100 WBC (Bld) 10.9 % High 0-10 [facility] Comment on above: Order Comment: 317.1 Performed By: #### L 501.1105, L501.6710, L501.4405, L100.0100, L101.9900, L501.8820 #### [facility] [address] [place], [address] Neutrophils/100 WBC (Bld) 70.4 % High 47-70 [facility] Comment on above: Order Comment: 317.1 Performed By: #### L 501.1105, L501.6710, L501.4405, L100.0100, L101.9900, L501.8820 #### [facility] [address] [place], [address] Nucleated RBC (Bld) [#/Vol] 0 10*3/uL Normal 0-5 [facility] Comment on above: Order Comment: 317.1 Performed By: #### L 501.1105, L501.6710, L501.4405, L100.0100, L101.9900, L501.8820 #### [facility] [address] [place], [address] Platelet mean volume (Bld) [Entitic vol] 9.2 fL Normal 6.2-12.0 [facility] Comment on above: Order Comment: 317.1 Performed By: #### L 501.1105, L501.6710, L501.4405, L100.0100, L101.9900, L501.8820 #### [facility] [address] [place], [address] Platelets (Bld) [#/Vol] 223 10*3/uL Normal 150-450 [facility] Comment on above: Order Comment: 317.1 Performed By: #### L 501.1105, L501.6710, L501.4405, L100.0100, L101.9900, L501.8820 #### [facility] [address] [place], [address] RBC (Bld) [#/Vol] 3.70 10*6/uL Low 4.2-5.4 [facility] Comment on above: Order Comment: 317.1 Performed By: #### L 501.1105, L501.6710, L501.4405, L100.0100, L101.9900, L501.8820 #### [facility] [address] [place], [address] RDW SD 52.1 fl High 35.1-43.9 [facility] Comment on above: Order Comment: 317.1 Performed By: #### L 501.1105, L501.6710, L501.4405, L100.0100, L101.9900, L501.8820 #### [facility] [address] [place], [address] WBC (Bld) [#/Vol] 10.7 10*3/uL Normal 4.4-11.0 [facility] Comment on above: Order Comment: 317.1 Performed By: #### L 501.1105, L501.6710, L501.4405, L100.0100, L101.9900, L501.8820 #### [facility] [address] [place], [address] Carbon dioxide, total [Moles /volume] in Central venous bloodOrdered By: Donavon De La Paz on 12-27-2024 CO2 [Moles/Vol] 23.8 mmol/L 21.0-32.0 [facility] Chloride assayOrdered By: Guerra on 12-27-2024 Chloride [Moles/Vol] 103 mmol/L 98-108 [facility] Eosinophil percentageOrdered By: Donavon De La Paz on 12-27-2024 Eosinophils/100 WBC (Bld) 4.6 % 0-5 [facility] Erythrocyte distribution wid th ratioOrdered By: Donavon De La Paz on 12-27-2024 Erythrocyte distribution width (RBC) [Ratio] 17.9 % High 11.6-14.6 [facility] Erythrocyte distribution wid th standard deviationOrdered By: Donavon De La Paz on 12-27-2024 Erythrocyte distribution width (RBC) [Ratio] 52.1 fl High 35.1-43.9 [facility] Glomerular filtration rate ( GFR) estimation/1.73 sq m using serum, plasma, or whole bOrdered By: Donavon De La Paz on 12-27-2024 GFR/1.73 sq M.predicted among non-blacks MDRD (S/P/Bld) [Vol rate/Area] 93 mL/min/{1.73_m2} >60 [facility] Comment on above: mL/min/1.73m2 CKD-EP I Creatinine Equation (2020) Hematocrit Auto (Bld) [Volum e fraction]Ordered By: Donavon De La Paz on 12-27-2024 Hematocrit (Bld) [Volume fraction] 29.4 % Low 37-47 [facility] Hemoglobin measurementOrdere d By: Donavon De La Paz on 12-27-2024 Hemoglobin (Bld) [Mass/Vol] 9.2 g/dL Low 12.0-15.0 [facility] Immature granulocytes/100 WB C Auto (Bld)Ordered By: Donavon De La Paz on 12-27-2024 Immature granulocytes/100 WBC (Bld) 0.500 % 0.0-0.9 [facility] Comment on above: IG% - Immature Granu locytes (promyelocytes, myelocytes and metamyelocytes) > 1% indicates that a LEFT SHIFT is Present. MCV (mean corpuscular volume ) determinationOrdered By: Donavon De La Paz on 12-27-2024 MCV (RBC) [Entitic vol] 79.5 fL Low 81-99 [facility] Mean corpuscular hemoglobin (MCH) determinationOrdered By: Donavon De La Paz on 12-27-2024 MCH (RBC) [Entitic mass] 24.9 pg Low 27.0-32.0 [facility] Mean corpuscular hemoglobin concentration (MCHC) determinationOrdered By: Donavon De La Paz on 12-27-2024 MCHC (RBC) [Mass/Vol] 31.3 g/dL Low 32-36 [place] Mean platelet volume determi nationOrdered By: Donavon De La Paz on 12-27-2024 Platelet mean volume (Bld) [Entitic vol] 9.2 fL 6.2-12.0 [facility] Monocyte percentageOrdered B y: Donavon De La Paz on 12-27-2024 Monocytes/100 WBC (Bld) 10.9 % High 0-10 [facility] Neutrophil percentageOrdered By: Donavon De La Paz on 12-27-2024 Neutrophils/100 WBC (Bld) 70.4 % High 47-70 [facility] Nucleated red blood cell per centageOrdered By: Donavon De La Paz on 12-27-2024 Nucleated RBC/100 WBC (Bld) [Ratio] 0 % 0-5 [facility] Platelet countOrdered By: Guerra on 12-27-2024 Platelets (Bld) [#/Vol] 223 10*3/uL 150-450 [facility] Potassium measurement (mass/ volume)Ordered By: Donavon De La Paz on 12-27-2024 Potassium (Unsp spec) [Mass/Vol] 3.9 mmol/L 3.3-5.1 [facility] RBC Auto (Bld) [#/Vol]Ordere d By: Donavon De La Paz on 12-27-2024 RBC (Bld) [#/Vol] 3.70 10*6/uL Low 4.2-5.4 [facility] Serum creatinine measurement (mass/volume)Ordered By: Donavon De La Paz on 12-27-2024 Creatinine [Mass/Vol] 0.72 mg/dL 0.70-1.20 [place] Serum glucose measurement (m ass/volume)Ordered By: Donavon De La Paz on 12-27-2024 Glucose [Mass/Vol] 90 mg/dL 70-99 [facility] Serum or plasma calcium gonzalez urement (mass/volume)Ordered By: Donavon De La Paz on 12-27-2024 Calcium [Mass/Vol] 8.8 mg/dL 7.6-11.0 [facility] Serum or plasma urea nitroge n measurement (mass/volume)Ordered By: Donavon De La Paz on 12-27-2024 Urea nitrogen [Mass/Vol] 21 mg/dL High 4-19 [facility] Serum or plasma vancomycin m easurement (mass/volume)Ordered By: Donavon De La Paz on 12-27-2024 Vancomycin [Mass/Vol] 15.5 ug/mL High 0.0-15.0 [place] Comment on above: VANCOMYCIN STANDARD DRUG THERAPY: CRITICAL VALUE IS > 15.0 mg/L VANCOMYCIN HIGH INTENSITY THERAPY: CRITICAL VALUE IS > 20.0 mg/L PLEASE CONTACT PHARMACY SERVICES (#[id number]) FOR INTERPRETATIONOF RESULTS. THIS RESULT DOES NOT REPRESENT A PEAK OR TROUGHLEVEL FOR THIS DRUG. VANCOMYCIN STANDARD DRUG THERAPY: CRITICAL VALUE IS > 15.0 mg/L VANCOMYCIN HIGH INTENSITY THERAPY: CRITICAL VALUE IS > 20.0 mg/L PLEASE CONTACT PHARMACY SERVICES (#8661) FOR INTERPRETATIONOF RESULTS. THIS RESULT DOES NOT REPRESENT A PEAK OR TROUGHLEVEL FOR THIS DRUG.Previous reported result: 15.3 ug/mLEdited by: NONA on 12/27/24:0946 AMENDED REPORT 12/27/24 0946 VANCO, RANDOM previously reported as: 15.3 H ug/mL VANCOMYCIN STANDARD DRUG THERAPY: CRITICAL VALUE IS > 15.0 mg/L VANCOMYCIN HIGH INTENSITY THERAPY: CRITICAL VALUE IS > 20.0 mg/L PLEASE CONTACT PHARMACY SERVICES (#6653) FOR INTERPRETATIONOF RESULTS. THIS RESULT DOES NOT REPRESENT A PEAK OR TROUGHLEVEL FOR THIS DRUG. Sodium levelOrdered By: Donavon De La Paz on 12-27-2024 Sodium [Moles/Vol] 136 mmol/L 133-145 [facility] Vancomycin, Random Levelon 0 12-27-2024 VANCO, RANDOM 15.5 ug/mL High 0.0-15.0 [facility] Comment on above: Order Comment: 317.1 0000 Result Comment: VANC OMYCIN STANDARD DRUG THERAPY: CRITICAL VALUE IS > 15.0 mg/L VANCOMYCIN HIGH INTENSITY THERAPY: CRITICAL VALUE IS > 20.0 mg/L PLEASE CONTACT PHARMACY SERVICES (#9003) FOR INTERPRETATION OF RESULTS. THIS RESULT DOES NOT REPRESENT A PEAK OR TROUGH LEVEL FOR THIS DRUG. VANCOMYCIN STANDARD DRUG THERAPY: CRITICAL VALUE IS > 15.0 mg/L VANCOMYCIN HIGH INTENSITY THERAPY: CRITICAL VALUE IS > 20.0 mg/L PLEASE CONTACT PHARMACY SERVICES (#8670) FOR INTERPRETATION OF RESULTS. THIS RESULT DOES NOT REPRESENT A PEAK OR TROUGH LEVEL FOR THIS DRUG. AMENDED REPORT 12/27/24 0946 VANCO, RANDOM previously reported as: 15.3 H ug/mL VANCOMYCIN STANDARD DRUG THERAPY: CRITICAL VALUE IS > 15.0 mg/L VANCOMYCIN HIGH INTENSITY THERAPY: CRITICAL VALUE IS > 20.0 mg/L PLEASE CONTACT PHARMACY SERVICES (#6041) FOR INTERPRETATION OF RESULTS. THIS RESULT DOES NOT REPRESENT A PEAK OR TROUGH LEVEL FOR THIS DRUG. Performed By: #### L 501.1105, L501.6710, L501.4405, L100.0100, L101.9900, L501.8820 #### [facility] [address] [facility] [place], [address] White blood cell (WBC) count Ordered By: Donavon De La Paz on 12-27-2024 WBC (Bld) [#/Vol] 10.7 10*3/uL 4.4-11.0 [facility] Absolute lymphocyte countOrd ered By: Donavon De La Paz on 12-25-2024 Lymphocytes Auto (Unsp spec) [#/Vol] 1.38 10*3/uL 0.83-4.51 [facility] Absolute neutrophil countOrd ered By: Donavon De La Paz on 12-25-2024 Neutrophils (Bld) [#/Vol] 6.0 10*3/uL 2.0-7.7 [facility] Alanine Aminotransferas (SGP T)on 12-25-2024 ALT [Catalytic activity/Vol] 12 U/L Normal <=34 [facility] Comment on above: Order Comment: 317.1 Performed By: #### L 501.1105, L501.6710, L501.4405, L100.0100, L101.9900, L501.8820 #### [facility] [address] [place], [address] Automated lymphocyte count a s percentage of total leukocytesOrdered By: Donavon De La Paz on 12-25-2024 Lymphocytes/100 WBC Auto (Unsp spec) 15.7 % Low 19-41 [facility] Basophil percentageOrdered B y: Donavon De La Paz on 12-25-2024 Basophils/100 WBC (Bld) 1.0 % 0-1 [facility] CBC W/Diff, Automatedon 12-06 Absolute Lymph 1.38 X10 3/uL Normal 0.83-4.51 [facility] Comment on above: Order Comment: 317.1 Performed By: #### L 501.1105, L501.6710, L501.4405, L100.0100, L101.9900, L501.8820 #### [facility] [address] [place], [address] Absolute Neut 6.0 X10 3/uL Normal 2.0-7.7 [facility] Comment on above: Order Comment: 317.1 Performed By: #### L 501.1105, L501.6710, L501.4405, L100.0100, L101.9900, L501.8820 #### [facility] [address] [place], [address] Basophils/100 WBC (Bld) 1.0 % Normal 0-1 [facility] Comment on above: Order Comment: 317.1 Performed By: #### L 501.1105, L501.6710, L501.4405, L100.0100, L101.9900, L501.8820 #### [facility] [address] [place], [address] Eosinophils/100 WBC (Bld) 4.4 % Normal 0-5 [facility] Comment on above: Order Comment: 317.1 Performed By: #### L 501.1105, L501.6710, L501.4405, L100.0100, L101.9900, L501.8820 #### [facility] [address] [place], [address] Erythrocyte distribution width (RBC) [Ratio] 17.8 % High 11.6-14.6 [facility] Comment on above: Order Comment: 317.1 Performed By: #### L 501.1105, L501.6710, L501.4405, L100.0100, L101.9900, L501.8820 #### [facility] [address] [place], [address] Hematocrit (Bld) [Volume fraction] 30.5 % Low 37-47 [facility] Comment on above: Order Comment: 317.1 Performed By: #### L 501.1105, L501.6710, L501.4405, L100.0100, L101.9900, L501.8820 #### [facility] [address] [place], [address] Hemoglobin (Bld) [Mass/Vol] 9.6 g/dL Low 12.0-15.0 [facility] Comment on above: Order Comment: 317.1 Performed By: #### L 501.1105, L501.6710, L501.4405, L100.0100, L101.9900, L501.8820 #### [facility] [address] [place], [address] IG% 0.300 Normal 0.0-0.9 [facility] Comment on above: Order Comment: 317.1 Result Comment: IG% - Immature Granulocytes (promyelocytes, myelocytes and metamyelocytes) > 1% indicates that a LEFT SHIFT is Present. Performed By: #### L 501.1105, L501.6710, L501.4405, L100.0100, L101.9900, L501.8820 #### [facility] [address] [place], [address] Lymphocytes/100 WBC (Bld) 15.7 % Low 19-41 [facility] Comment on above: Order Comment: 317.1 Performed By: #### L 501.1105, L501.6710, L501.4405, L100.0100, L101.9900, L501.8820 #### [facility] [address] [place], [address] MCH (RBC) [Entitic mass] 24.7 pg Low 27.0-32.0 [facility] Comment on above: Order Comment: 317.1 Performed By: #### L 501.1105, L501.6710, L501.4405, L100.0100, L101.9900, L501.8820 #### [facility] [address] [place], [address] MCHC (RBC) [Mass/Vol] 31.5 g/dL Low 32-36 [place] Comment on above: Order Comment: 317.1 Performed By: #### L 501.1105, L501.6710, L501.4405, L100.0100, L101.9900, L501.8820 #### [facility] [address] [place], [address] MCV (RBC) [Entitic vol] 78.4 fL Low 81-99 [facility] Comment on above: Order Comment: 317.1 Performed By: #### L 501.1105, L501.6710, L501.4405, L100.0100, L101.9900, L501.8820 #### [facility] [address] [place], [address] Monocytes/100 WBC (Bld) 9.6 % Normal 0-10 [facility] Comment on above: Order Comment: 317.1 Performed By: #### L 501.1105, L501.6710, L501.4405, L100.0100, L101.9900, L501.8820 #### [facility] [address] [place], [address] Neutrophils/100 WBC (Bld) 69.0 % Normal 47-70 [facility] Comment on above: Order Comment: 317.1 Performed By: #### L 501.1105, L501.6710, L501.4405, L100.0100, L101.9900, L501.8820 #### [facility] [address] [place], [address] Nucleated RBC (Bld) [#/Vol] 0 10*3/uL Normal 0-5 [facility] Comment on above: Order Comment: 317.1 Performed By: #### L 501.1105, L501.6710, L501.4405, L100.0100, L101.9900, L501.8820 #### [facility] [address] [place], [address] Platelet mean volume (Bld) [Entitic vol] 9.2 fL Normal 6.2-12.0 [facility] Comment on above: Order Comment: 317.1 Performed By: #### L 501.1105, L501.6710, L501.4405, L100.0100, L101.9900, L501.8820 #### [facility] [address] [place], [address] Platelets (Bld) [#/Vol] 260 10*3/uL Normal 150-450 [facility] Comment on above: Order Comment: 317.1 Performed By: #### L 501.1105, L501.6710, L501.4405, L100.0100, L101.9900, L501.8820 #### [facility] [address] [place], [address] RBC (Bld) [#/Vol] 3.89 10*6/uL Low 4.2-5.4 [facility] Comment on above: Order Comment: 317.1 Performed By: #### L 501.1105, L501.6710, L501.4405, L100.0100, L101.9900, L501.8820 #### [facility] [address] [place], [address] RDW SD 50.9 fl High 35.1-43.9 [facility] Comment on above: Order Comment: 317.1 Performed By: #### L 501.1105, L501.6710, L501.4405, L100.0100, L101.9900, L501.8820 #### [facility] [address] [place], [address] WBC (Bld) [#/Vol] 8.8 10*3/uL Normal 4.4-11.0 [facility] Comment on above: Order Comment: 317.1 Performed By: #### L 501.1105, L501.6710, L501.4405, L100.0100, L101.9900, L501.8820 #### [facility] [address] [place], [address] CRPon 12-25-2024 C-REACTIVE PROT 39.70 mg/L High 0.0-3.0 [facility] Comment on above: Order Comment: 317.1 Performed By: #### L 501.1105, L501.6710, L501.4405, L100.0100, L101.9900, L501.8820 #### [facility] [address] [place], [address] Eosinophil percentageOrdered By: Donavon De La Paz on 12-25-2024 Eosinophils/100 WBC (Bld) 4.4 % 0-5 [facility] Erythrocyte Sed Rateon 12-25 SED RATE 74 mm/hr High 0-30 [facility] Comment on above: Order Comment: 317.1 Performed By: #### L 501.1105, L501.6710, L501.4405, L100.0100, L101.9900, L501.8820 #### [facility] [address] [place], [address] Erythrocyte distribution wid th ratioOrdered By: Donavon De La Paz on 12-25-2024 Erythrocyte distribution width (RBC) [Ratio] 17.8 % High 11.6-14.6 [facility] Erythrocyte distribution wid th standard deviationOrdered By: Donavon De La Paz on 12-25-2024 Erythrocyte distribution width (RBC) [Ratio] 50.9 fl High 35.1-43.9 [facility] Erythrocyte sedimentation ra teOrdered By: Donavon De La Paz on 12-25-2024 ESR (Bld) [Velocity] 74 mm/h High 0-30 [facility] Glomerular filtration rate ( GFR) estimation/1.73 sq m using serum, plasma, or whole bOrdered By: Donavon De La Paz on 12-25-2024 GFR/1.73 sq M.predicted among non-blacks MDRD (S/P/Bld) [Vol rate/Area] 69 mL/min/{1.73_m2} >60 [facility] Comment on above: mL/min/1.73m2 CKD-EP I Creatinine Equation (2020) Hematocrit Auto (Bld) [Volum e fraction]Ordered By: Donavon De La Paz on 12-25-2024 Hematocrit (Bld) [Volume fraction] 30.5 % Low 37-47 [facility] Hemoglobin measurementOrdere d By: Donavon De La Paz on 12-25-2024 Hemoglobin (Bld) [Mass/Vol] 9.6 g/dL Low 12.0-15.0 [facility] Immature granulocytes/100 WB C Auto (Bld)Ordered By: Donavon De La Paz on 12-25-2024 Immature granulocytes/100 WBC (Bld) 0.300 % 0.0-0.9 [facility] Comment on above: IG% - Immature Granu locytes (promyelocytes, myelocytes and metamyelocytes) > 1% indicates that a LEFT SHIFT is Present. MCV (mean corpuscular volume ) determinationOrdered By: Donavon De La Paz on 12-25-2024 MCV (RBC) [Entitic vol] 78.4 fL Low 81-99 [facility] Mean corpuscular hemoglobin (MCH) determinationOrdered By: Donavon De La Paz on 12-25-2024 MCH (RBC) [Entitic mass] 24.7 pg Low 27.0-32.0 [facility] Mean corpuscular hemoglobin concentration (MCHC) determinationOrdered By: Donavon De La Paz on 12-25-2024 MCHC (RBC) [Mass/Vol] 31.5 g/dL Low 32-36 [place] Mean platelet volume determi nationOrdered By: Donavon De La Paz on 12-25-2024 Platelet mean volume (Bld) [Entitic vol] 9.2 fL 6.2-12.0 [facility] Monocyte percentageOrdered B y: Donavon De La Paz on 12-25-2024 Monocytes/100 WBC (Bld) 9.6 % 0-10 [facility] Neutrophil percentageOrdered By: Donavon De La Paz on 12-25-2024 Neutrophils/100 WBC (Bld) 69.0 % 47-70 [facility] Nucleated red blood cell per centageOrdered By: Donavon De La Paz on 12-25-2024 Nucleated RBC/100 WBC (Bld) [Ratio] 0 % 0-5 [facility] Platelet countOrdered By: Guerra on 12-25-2024 Platelets (Bld) [#/Vol] 260 10*3/uL 150-450 [facility] RBC Auto (Bld) [#/Vol]Ordere d By: Donavon De La Paz on 12-25-2024 RBC (Bld) [#/Vol] 3.89 10*6/uL Low 4.2-5.4 [facility] Serum Creatinine AND GFRon 0 12-25-2024 Creatinine [Mass/Vol] 0.93 mg/dL Normal 0.70-1.20 [place] Comment on above: Order Comment: 317.1 Performed By: #### L 501.1105, L501.6710, L501.4405, L100.0100, L101.9900, L501.8820 #### [facility] [address] [place], [place], [address] GFR/1.73 sq M.predicted among non-blacks MDRD (S/P/Bld) [Vol rate/Area] 69 mL/min/{1.73_m2} Normal >60 [facility] Comment on above: Order Comment: 317.1 Result Comment: mL/m in/1.73m2 CKD-EPI Creatinine Equation (2020) Performed By: #### L 501.1105, L501.6710, L501.4405, L100.0100, L101.9900, L501.8820 #### [facility] [address] [place], [place], [address] Serum creatinine measurement (mass/volume)Ordered By: Donavon De La Paz on 12-25-2024 Creatinine [Mass/Vol] 0.93 mg/dL 0.70-1.20 [place] Serum or plasma C reactive p rotein measurement (mass/volume)Ordered By: Donavon De La Paz on 12-25-2024 CRP [Mass/Vol] 39.70 mg/L High 0.0-3.0 [facility] Serum or plasma alanine gasca otransferase (ALT) measurementOrdered By: Donavon De La Paz on 12-25-2024 ALT [Catalytic activity/Vol] 12 U/L <35 [facility] Trough vancomycin levelOrder ed By: Donavon De La Paz on 12-25-2024 Vancomycin trough [Mass/Vol] 33.5 ug/mL High 5.0-15.0 [facility] Comment on above: Recommended goal tro ugh ranges are generally 10-15 mcg/ml for less severe/complicated infections such as cellulitis or UTI and 15-20 mcg/ml for more severe/complicated infections such as bacteremia/sepsis, osteomyelitis, pneumonia or meningitis. Goal trough ranges should take into account indication, patient-specific factors and organism DEDRICK.VANCOMYCIN STANDARED DRUG THERAPY TROUGH LEVEL: 5.0 - 15.0 mg/L VANCOMYCIN HIGH INTENSITY THERAPY TROUGH LEVEL: 15.0 - 20.0 mg/L High Intensity therapy recommended for serious lifethreatening infections include:- Gyrlmifibr-Dlcuybpgperi-Zakfxeplc (Ventilator/Healtcare Associated)-Sepsis PLEASE CONTACT PHARMACY SERVICES (#7417) FOR INTERPRETATIONOF RESULTS. Vancomycin, Trough Levelon 0 12-25-2024 VANCO, TROUGH 33.5 ug/mL High 5.0-15.0 [facility] Comment on above: Order Comment: 317.1 0000 Result Comment: Rahul mmended goal trough ranges are generally 10-15 mcg/ml for less severe/complicated infections such as cellulitis or UTI and 15-20 mcg/ml for more severe/complicated infections such as bacteremia/sepsis, osteomyelitis, pneumonia or meningitis. Goal trough ranges should take into account indication, patient-specific factors and organism DEDRICK. VANCOMYCIN STANDARED DRUG THERAPY TROUGH LEVEL: 5.0 - 15.0 mg/L VANCOMYCIN HIGH INTENSITY THERAPY TROUGH LEVEL: 15.0 - 20.0 mg/L High Intensity therapy recommended for serious life threatening infections include: - Meningitis -Endocarditis -Pneumonia (Ventilator/Healtcare Associated) -Sepsis PLEASE CONTACT PHARMACY SERVICES (#2665) FOR INTERPRETATION OF RESULTS. Performed By: #### L 501.1105, L501.6710, L501.4405, L100.0100, L101.9900, L501.8820 #### [facility] [address] [place] [address]. [place], [address] White blood cell (WBC) count Ordered By: Donavon De La Paz on 12-25-2024 WBC (Bld) [#/Vol] 8.8 10*3/uL 4.4-11.0 [facility] ALLIED HEALTH 12-22-2024 ALLIED HEALTH [facility] NURSING PROGon 12-22-2024 NURSING PROG [facility] XR CHEST 1V PORT POST PICC - NBon 12-22-2024 XR CHEST 1V PORT POST PICC -NB [facility]24 [facility]2024 [facility] 12-19-2024 [facility] 12-18-2024 [facility] ANES POSTPROC EVALon 025 ANES POSTPROC EVAL Normal [facility] ANES PRE-OPon 12-15-2024 ANES PRE-OP Normal [facility] BRIEF OP NOTon 12-15-2024 BRIEF OP NOT Normal [facility] Bacteria Spec Anaerobe Culto n 12-15-2024 Bacteria identified Anaer cx Nom (Unsp spec) ORGANISM ID: 2 Moderate Mixed anaerobic judy No Bacteroides fragilis group isolated. No Clostridium perfringens isolated [facility] Comment on above: Performed By: #### 6 462-6, 635-3 ####[facility] LABCLIA [id number] [address] [id number], [place] [address] [place] Bacteria identified Anaer cx Nom (Unsp spec) ORGANISM ID: 2 Few Mixed anaerobic judy No Bacteroides fragilis group isolated. No Clostridium perfringens isolated [facility] Comment on above: Performed By: #### 4 3408-4, 95950-9, 235-3 ####[facility] LABCLIA [id number] [address] [id number], [place] [address] [place] Bacteria Tiss Culton 025 Bacteria identified Cx Nom (Tiss) Abnormal [facility] Comment on above: Performed By: #### 4 3408-4, 97476-7, 635-3 ####[facility] LABCLIA [id number] [address] [id number], [place] [address] [place] Bacteria Wnd Culton 12-16-19 25 Bacteria identified Cx Nom (Wound) Abnormal [facility] Comment on above: Performed By: #### 6 462-6, 215-3 ####[facility] LABCLIA [id number] [address] [id number], [place] [address] [place] CNPNon 12-15-2024 CNPN Normal [facility] Microorganism Spec Culton Microorganism identified Cx Nom (Unsp spec) CULTURE, FUNGAL: No Fungus isolated after 28 days FUNGAL SMEAR: No fungus seen [facility] Comment on above: Performed By: #### 4 3408-4, 91718-8, 635-3 ####[facility] LABCLIA [id number] [place] [id number] [place] OPERATIVE NOon 12-15-2024 OPERATIVE NO Normal [facility] Pathology biopsy report Terrance (Tiss)on 12-15-2024 AP DISCLAIMER Normal [facility] Comment on above: Order Comment: Speci men Type: TISSUE SPECIMENOrdering Facility: [facility] Address: [address] [place] [address] Result Comment: Nadine quach Developed Test (LDT) Disclaimer:Performance characteristics of immunohistochemical, immunofluorescent, and chromogenic in-situ hybridization tests have been determined by the performing laboratory within [facility] Pathology and Laboratory Medicine Department ([facility], [facility], [facility], [facility], [facility], Counts Include [facility], or [facility]) in a manner consistent with CLIA requirements. One or more of these tests may not have been cleared or approved by the FDA. [facility] is regulated under CLIA as qualified to perform high-complexity testing. These tests are used for clinical purposes. These should not be regarded as investigational or for research. Positive and negative controls stain appropriately. Performed By: #### 6 6121-5 ####[facility] LABORATORYCLIA [id number] [facility] [place] [address] [place] [facility] LABCLIA [id number] [place] [id number] [place] CASE REPORT Normal [facility] Comment on above: Order Comment: Speci men Type: TISSUE SPECIMENOrdering Facility: [facility] Address: [address] [place] [address] Result Comment: Surg ical Pathology Report Case: [id number] Provider: Hu Pickard DPM Collected: 12/15/2024 01:10 PMOrdering Location: [facility] Surgery Received: 12/15/2024 02:52 PMPathologist: Misael Rojas MDSpecimen: Bone, Biopsy, Right Ankle Calcaneal Bone Biopsy Post Lavage Performed By: #### 6 6121-5 ####[facility] LABORATORYCLIA [id number] [facility] [place] [address] [facility] LABCLIA [id number] [address] [place] [address] 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 R ight ankle, calcaneus, biopsy:- Cancellous bone with reactive changes, negative for osteomyelitis. at 0953 EDT Performed By: #### 6 6121-5 ####[facility] LABORATORYCLIA [id number] [place] [address] [facility] LABCLIA [id number] [address] [place] [address] [facility] FINAL PERFORMING LAB [facility] Comment on above: Order Comment: Speci men Type: TISSUE SPECIMENOrdering Facility: [facility] Address: [address] [place] [address] Result Comment: Diag nostic interpretation performed at: [facility], [address] [facility], [facility] [address] CLIA# [id number] Director: Zach Cobian MD Performed By: #### 6 6121-5 ####[facility] LABORATORYIA [id number] [facility] [place] [address] [facility] LABCLIA [id number] [address] OF [facility] GROSS DESCRIPTION A. Bone, Biopsy Normal [facility] Comment on above: Order Comment: Speci men Type: TISSUE SPECIMENOrdering Facility: [facility] Address: [address] [place] [address] Result Comment: Rece ived in formalin labeled right ankle calcaneal bone biopsy post lavage are multiple irregularly-shaped, eubanks-brown, soft bone fragments aggregating to 0.5 x 0.5 x 0.2 cm. Entirely submitted in cassette A1.VIV December 18, 2024 12:07 PMGross examination performed at [facility], [address] [place] [address] Performed By: #### 6 6121-5 ####[facility] [id number] [facility] [place] [address] [facility] LABIA [id number] [address] [place] XR FOOT 3V AP/LAT/OBL RTon 0 12-15-2024 XR FOOT 3V AP/LAT/OBL RT Normal [facility] CNOVon 12-14-2024 CNOV Normal [facility] ECHO LIMITEDon 12-14-2024 CONCLUSIONS: - Exam indication: Limited for LV function, Pre op - The left ventricle is normal in size. Left ventricular systolic function is normal. EF = 56 5% (2D biplane) Indeterminate left ventricular diastolic function. - The right ventricle is normal in size. Right ventricular systolic function is normal. - There is mild (1+) mitral regurgitation. - Exam was compared with the prior echocardiographic exam performed on 07/28/24. LV function has improved. Prior EF was 50%. Prior RVSP was 56mmHg. * * * Final * * * [facility] Echocardiography Report: [facility] Date of service: 12/14/2024 12:12:32 PM Ordering physician: SHANEL NEWELL Indication: Limited for LV function, Pre op Technologist: Yovani Simpson [facility] Interpreting physician: Francie Lafleur MD PATIENT: Name: MS. SHADE BRAMBILA : 1960 Age: 64 years Gender: F History of hypertension, diabetes mellitus and dyslipidemia. Primary rhythm: sinus. Height: 172.72 cm BSA: 2.04 m Weight: 87.09 kg BMI: 29.2 kg/m Heart rate 75 bpm Blood pressure 125/51 mmHg Color Doppler was utilized to interrogate the cardiac valves assessed and spectral Doppler was utilized to determine the flow velocities and pressure gradients reported in this exam. MEASUREMENTS: Value Indexed Normal Left atrium diameter 4.6 cm (2D) Left atrial volume 63 ml (biplane A-L) 31 ml/m Terri <= 34 LV ID (diastole) 5.2 cm (2D) 2.52 cm/m LV ID (systole) 3.6 cm (2D) 1.76 cm/m IVS, leaflet tips 0.8 cm (2D) Posterior wall thickness 1.1 cm (2D) Left ventricular mass 178 g (2D) 87 g/m LV stroke volume 51 ml (2D biplane) LV end diastolic volume 93 ml (2D biplane) 45.3 ml/m 29<=EDVi<62 LV end systolic volume 41 ml (2D biplane) 20.1 ml/m Ejection Fraction 56 % (2D biplane) EF > 54 FINDINGS: LEFT VENTRICLE The left ventricle is normal in size. Left ventricular systolic function is normal. Indeterminate left ventricular diastolic function. Mitral annular lateral E/e': 17.9. Mitral annular septal E/e': 26.4. Wall Motion: All scored segments are normal. RIGHT VENTRICLE The right ventricle is normal in size. Right ventricular systolic function is normal. LEFT ATRIUM The left atrial cavity is normal in size. RIGHT ATRIUM The right atrial cavity is normal in size. MITRAL VALVE The mitral valve leaflets are structurally normal. There is mild (1+) mitral valve regurgitation. The pressure half time is 66 msec. The peak mitral E/A ratio is 1.56. The mitral flow deceleration time is 228 msec. TRICUSPID VALVE The tricuspid valve leaflets are structurally normal. There is trace tricuspid valve regurgitation. AORTIC VALVE There is no aortic valve regurgitation. Tricuspid aortic valve. There is mild calcification. PULMONIC VALVE The pulmonic valve cusps are structurally normal. There is trace pulmonic valve regurgitation. PERICARDIUM There is no pericardial effusion. [facility] ECHO LIMITED [facility] TYPE AND SCREEN,30 DAYon ABO O Normal [facility] Comment on above: Order Comment: Speci men Type: BLOOD SPECIMENOrdering Facility: [facility] Address: [address] [place] [address] Performed By: #### T SCR30 ####[facility] BANKCLIA [id number] [place] [address] [place] Rh Nom (Bld) Positive [facility] Comment on above: Order Comment: Speci [facility] Type: BLOOD SPECIMENOrdering Facility: [facility] Address: [address] [place] [address] Performed By: #### T SCR30 ####[facility]ANKCLIA [id number] [place] [address] [place] CNOVon 12-08-2024 CNOV [facility] CNPNon 12-08-2024 CNPN [facility] Basic metabolic 2000 panelon 12-05-2024 Anion gap [Moles/Vol] 11 mmol/L Normal 8-15 [facility] Comment on above: Order Comment: Speci [facility] Type: BLOOD SPECIMENOrdering Facility: [facility] Address: [address] [place] [address] Performed By: #### 2 4321-2, 45164-5 ####[facility]ORYCLIA [id number] [place] [address] [place] Calcium [Mass/Vol] 9.8 mg/dL Normal 8.5-10.2 [facility] Comment on above: Order Comment: Speci men Type: BLOOD SPECIMENOrdering Facility: [facility] Address: [address] [place] [id number] Performed By: #### 2 4321-2, 34970-9 ####[facility]ATORYCLIA [id number] [place] [address] [place] Chloride [Moles/Vol] 97 mmol/L Low 98-107 [facility] Comment on above: Order Comment: Lisbet ojeda Type: BLOOD SPECIMENOrdering Facility: [facility] Address: [address] [place] [address] Performed By: #### 2 4321-2, 20965-2 ####[facility]ORATORYCLIA [id number] [place] [address] [place] CO2 [Moles/Vol] 28 mmol/L Normal 22-30 [facility] Comment on above: Order Comment: Lisbet lynette Type: BLOOD SPECIMENOrdering Facility: [facility] Address: [address] [place] [address] Performed By: #### 2 4321-2, 11376-3 ####[facility] LABORATORYCLIA [id number] [place] [address] [place] Creatinine [Mass/Vol] 0.79 mg/dL Normal 0.58-0.96 [facility] Comment on above: Order Comment: Lisbet lynette Type: BLOOD SPECIMENOrdering Facility: [facility] Address: [address] [place] [address] Performed By: #### 2 4321-2, 59872-6 ####[facility] LABORATORYCLIA [id number] [address] Creatinine and Glomerular filtration rate.predicted panel (S/P/Bld) 84 mL/min/1.73m??? Normal >=60 [facility] Comment on above: Order Comment: Lisbet ojeda Type: BLOOD SPECIMENOrdering Facility: [facility] Address: [address] [place] [address] Result Comment: Anuj mated Glomerular Filtration Rate (eGFR) is calculated using the 2020 CKD-EPI creatinine equation. This equation utilizes serum creatinine, sex, and age as parameters. The creatinine assay has traceable calibration to isotope dilution-mass spectrometry. Refer to KDIGO guidelines for clinical interpretation. In patients with unstable renal function, e.g. those with acute kidney injury, the eGFR may not accurately reflect actual GFR. Performed By: #### 2 4321-2, 49592-2 ####[facility] LABORATORYCLIA [id number] [place] [id number] [place] Glucose [Mass/Vol] 143 mg/dL High 74-99 [facility] Comment on above: Order Comment: Lisbet ojeda Type: BLOOD SPECIMENOrdering Facility: [facility] Address: [address] [place] [address] Result Comment: The [place] Diabetes Association (ADA) provides guidance for cutoff values for fasting glucose and random glucose. The ADA defines fasting as no caloric intake for at least 8 hours. Fasting plasma glucose results between 100 to 125 mg/dL indicate increased risk for diabetes (prediabetes).Fasting plasma glucose results greater than or equal to 126 mg/dL meet the criteria for diagnosis of diabetes. In the absence of unequivocal hyperglycemia, results should be confirmed by repeat testing. In a patient with classic symptoms of hyperglycemia or hyperglycemic crisis, random plasma glucose results greater than or equal to 200 mg/dL meet the criteria for diagnosis of diabetes.Reference: Standards of Medical Care in Diabetes 2016, [place] Diabetes Association. Diabetes Care. 2016.39(Suppl 1). Performed By: #### 2 4321-2, 96458-5 ####[facility] LABORATORYCLIA [id number] [place] [id number] [place] Potassium [Moles/Vol] 4.2 mmol/L Normal 3.7-5.1 [facility] Comment on above: Order Comment: Lisbet ojeda Type: BLOOD SPECIMENOrdering Facility: [facility] Address: [address] [place] [address] Performed By: #### 2 4321-2, 17815-0 ####[facility] LABORATORYCLIA [id number] [place] [id number] [place] Sodium [Moles/Vol] 136 mmol/L Normal 136-144 [facility] Comment on above: Order Comment: Lisbet ojeda Type: BLOOD SPECIMENOrdering Facility: [facility] Address: [address] [place] [address] Performed By: #### 2 4321-2, 26206-8 ####[facility] LABORATORYCLIA [id number] [place] [id number] [place] Urea nitrogen [Mass/Vol] 26 mg/dL High 7-21 [facility] Comment on above: Order Comment: Speci men Type: BLOOD SPECIMENOrdering Facility: [facility] Address: [address] [place] [address] Performed By: #### 2 4321-2, 67658-5 ####[facility] LABORATORYCLIA [id number] [address] STATES [facility] CBC panel Auto (Bld)on 12-05 Erythrocyte distribution width (RBC) [Ratio] 17.5 % High 11.5-15.0 [facility] Comment on above: Order Comment: Speci men Type: BLOOD SPECIMENOrdering Facility: [facility] Address: [address] [place] [address] Performed By: #### 5 8410-2 ####[facility] LABORATORYCLIA [id number] [address] [place] Hematocrit (Bld) [Volume fraction] 32.8 % Low 36.0-46.0 [facility] Comment on above: Order Comment: Speci men Type: BLOOD SPECIMENOrdering Facility: [facility] Address: [address] [place] [address] Performed By: #### 5 8410-2 ####[facility] LABORATORYCLIA [id number] [address] [place] Hemoglobin (Bld) [Mass/Vol] 10.0 g/dL Low 11.5-15.5 [facility] Comment on above: Order Comment: Speci men Type: BLOOD SPECIMENOrdering Facility: [facility] Address: [address] [place] [address] Performed By: #### 5 8410-2 ####[facility] LABORATORYCLIA [id number] [address] STATES [facility] MCH (RBC) [Entitic mass] 24.9 pg Low 26.0-34.0 [facility] Comment on above: Order Comment: Speci men Type: BLOOD SPECIMENOrdering Facility: [facility] Address: [address] [place] [address] Performed By: #### 5 8410-2 ####[facility] LABORATORYCLIA [id number] [place] [address] [place] MCHC (RBC) [Mass/Vol] 30.5 g/dL Normal 30.5-36.0 [facility] Comment on above: Order Comment: Speci men Type: BLOOD SPECIMENOrdering Facility: [facility] Address: [address] [place] [address] Performed By: #### 5 8410-2 ####[facility] LABORATORYCLIA [id number] [place] [address] [place] MCV (RBC) [Entitic vol] 81.6 fL Normal 80.0-100.[address] [facility] Comment on above: Order Comment: Speci men Type: BLOOD SPECIMENOrdering Facility: [facility] Address: [address] [place] [address] Performed By: #### 5 8410-2 ####[facility] LABORATORYCLIA [id number] [address] [place] Nucleated RBC (Bld) [#/Vol] 10*3/uL Normal <0.01 [facility] Comment on above: Order Comment: Speci men Type: BLOOD SPECIMENOrdering Facility: [facility] Address: [address] [place] [address] Performed By: #### 5 8410-2 ####[facility] LABORATORYCLIA [id number] [place] [address] [place] Platelet mean volume (Bld) [Entitic vol] 9.1 fL Normal 9.0-12.7 [facility] Comment on above: Order Comment: Speci men Type: BLOOD SPECIMENOrdering Facility: [facility] Address: [address] [place] [address] Performed By: #### 5 8410-2 ####[facility] LABORATORYCLIA [id number] [place] [address] [place] Platelets (Bld) [#/Vol] 256 10*3/uL Normal 150-400 [facility] Comment on above: Order Comment: Speci men Type: BLOOD SPECIMENOrdering Facility: [facility] Address: [address] [place] [address] Performed By: #### 5 8410-2 ####[facility] LABORATORYCLIA [id number] [place] [address] [place] RBC (Bld) [#/Vol] 4.02 10*6/uL Normal 3.90-5.20 [facility] Comment on above: Order Comment: Speci men Type: BLOOD SPECIMENOrdering Facility: [facility] Address: [address] [place] [address] Performed By: #### 5 8410-2 ####[facility]ORATORYCLIA [id number] [place] [id number] [place] WBC (Bld) [#/Vol] 10.11 10*3/uL Normal 3.70-11.00 [facility] Comment on above: Order Comment: Speci men Type: BLOOD SPECIMENOrdering Facility: [facility] Address: [address] [place] [address] Performed By: #### 5 8410-2 ####[facility] LABORATORYCLIA [id number] [place] [id number] [facility] [place] Lipid 1996 panelon 5 Cholesterol [Mass/Vol] 106 mg/dL Normal <200 [facility] Comment on above: Order Comment: Speci men Type: BLOOD SPECIMENOrdering Facility: [facility] Address: [address] [place] [address] Result Comment: <200 mg/dL, Desirable 200-239 mg/dL, Borderline high>239 mg/dL, High Performed By: #### 2 4321-2, 37269-2 ####[facility] LABORATORYCLIA [id number] [place] [id number] [facility] [place] Cholesterol in HDL [Mass/Vol] 45 mg/dL Normal >39 [facility] Comment on above: Order Comment: Speci men Type: BLOOD SPECIMENOrdering Facility: [facility] Address: [address] [place] [address] Result Comment: 40-5 9 mg/dL, Acceptable>59 mg/dL, High: Negative risk factor for coronary heart disease<40 mg/dL, Low: Positive risk factor for coronary heart disease Performed By: #### 2 4321-2, 74446-5 ####[facility] LABORATORYCLIA [id number] [address] Cholesterol in LDL [Mass/Vol] 42 mg/dL Normal <100 [facility] Comment on above: Order Comment: Lisbet ojeda Type: BLOOD SPECIMENOrdering Facility: [facility] Address: [address] [place] [address] Result Comment: <100 mg/dL, Optimal 100-129 mg/dL, Near optimal/above optimal 130-159 mg/dL, Borderline high 160-189 mg/dL, High>189 mg/dL, Very highSecondary prevention optimal LDL Cholesterol levels are recommended to be < 70 mg/dL Performed By: #### 2 4321-2, 52647-7 ####[facility] LABORATORYCLIA [id number] [address] Cholesterol in LDL/Cholesterol in HDL [Mass ratio] 0.93 {ratio} Normal <2.54 [facility] Comment on above: Order Comment: Lisbet ojeda Type: BLOOD SPECIMENOrdering Facility: [facility] Address: [address] [place] [address] Result Comment: Refe rence:1. National Cholesterol Education Program ATP III Guideline At-A-Glance Quick Desk Reference: National Heart, Lung, and Blood [place]. National Institutes of Health. 2001: NIH Publication No. 01-3305.2. An International Atherosclerosis Society position paper: global recommendations for the management of dyslipidemia: executive summary, Atherosclerosis. 2014: 232(2):410-413. Performed By: #### 2 432-2, 26304-6 ####[facility] LABORATORYCLIA [id number] [address] Cholesterol in VLDL [Mass/Vol] 19 mg/dL Normal <30 [facility] Comment on above: Order Comment: Lisbet lynette Type: BLOOD SPECIMENOrdering Facility: [facility] Address: [address] [place] [address] Performed By: #### 2 4321-2, 73360-3 ####[facility] LABORATORYCLIA [id number] [address] [place] Cholesterol non HDL [Mass/Vol] 61 mg/dL Normal <130 [facility] Comment on above: Order Comment: Speci men Type: BLOOD SPECIMENOrdering Facility: [facility] Address: [address] [place] [address] Result Comment: <130 mg/dL, Optimal 130-159 mg/dL, Near optimal/above optimal 160-189 mg/dL, Borderline high 190-219 mg/dL, High>219 mg/dL, Very highSecondary prevention optimal non HDL Cholesterol levels are recommended to be <100 mg/dL Performed By: #### 2 4321-2, 56686-4 ####[facility] LABORATORYCLIA [id number] [address] [place] Cholesterol.total/Louann sterol in HDL [Mass ratio] 2.36 {ratio} Normal <5.10 [facility] Comment on above: Order Comment: Speci men Type: BLOOD SPECIMENOrdering Facility: [facility] Address: [address] [place] [address] Performed By: #### 2 4321-2, 42185-4 ####[facility] LABORATORYCLIA [id number] [address] OF [facility] FASTING TIME 12 hrs Normal [facility] Comment on above: Order Comment: Speci men Type: BLOOD SPECIMENOrdering Facility: [facility] Address: [address] [place] [address] Performed By: #### 2 4321-2, 52907-7 ####[facility] LABORATORYCLIA [id number] [address] [place] Triglyceride [Mass/Vol] 95 mg/dL Normal <[address] [facility] Comment on above: Order Comment: Speci men Type: BLOOD SPECIMENOrdering Facility: [facility] Address: [address] [place] [address] Result Comment: <150 mg/dL, Normal 150-199 mg/dL, Borderline high 200-499 mg/dL, High>499 mg/dL, Very high Performed By: #### 2 4321-2, 63041-0 ####[facility] LABORATORYCLIA [id number] [place] [id number] [facility] [place] CNOVon 12-01-2024 CNOV Normal [facility] CNPNon 11-30-2024 CNPN Normal [facility] HISTORY PHYSICALon HISTORY PHYSICAL Normal [facility] CNPNon 11-28-2024 CNPN Normal [facility] Bacteria Wnd Culton 11-28-19 25 Bacteria identified Cx Nom (Wound) Abnormal [facility] Comment on above: Performed By: #### 6 462-6 ####[facility] LABCLIA [id number] [address] CNOVon 11-27-2024 CNOV Normal [facility] CNOVon 11-24-2024 CNOV Normal [facility] CNPNon 11-21-2024 TONJA Telephone (CARDMM) SHADE BRAMBILA ([id number]) 1960 F Date Time Provider Department 11/21/24 SHANEL NEWELL During your visit today, we recorded the following information about you: Alex Simpson LPN 11/21/2024 2:55 PM Signed [facility] BP log received for Belinda Newell CNP for review. Placed in PSS basket for scanning. Stephanied Belinda Newell CNP Placed copy on desk of DEBORAH Velazquez Hannah 11/22/2024 8:04 AM Signed Scanned into patient chart Scan on 11/22/2024 8:03 AM by Alexa Bonilla: [facility] BP log Shanel Newell APRN.CNP 11/22/2024 9:28 AM Signed Blood pressure log reviewed and blood pressures appear to be under good control on average. No persistent highs or lows. No additions or changes needed at this time. Shanel Newell APRN.CNP Allergies As of Date: 11/21/2024 Noted Allergy Reaction AMOXICILLIN 11/26/2022 16 - Unknown Comments: Patient does not remember reaction SILICONE 06/22/2024 2 - Rash 9 - Itching Comments: Dressing with silicone border caused inflammation where the bandage was placed CODEINE 09/26/2022 5 - Intolerance Comments: Patient states Makes her Hyper MORPHINE 08/17/2023 5 - Intolerance Comments: Difficulty waking up / groggy Date Reviewed: 11/17/2024 Reviewed by: Alex Simpson LPN - Fully Assessed Reason for Visit: home blood pressure log [Other] Cmt: [facility] Prescriptions as of 11/22/2024 - GLUCAGON EMERGENCY KIT, HUMAN, INJECTION by INJECTION(UNSPECIFIED PARENTERAL ROUTES) route. - sodium phosphate,mono-dibasic (ENEMA RECTAL) by RECTAL route as needed (constipation). may be given daily, if needed - ferrous sulfate 325 mg (65 mg iron) tablet Take 325 mg by mouth once daily. - bisacodyl (DULCOLAX) 10 mg supp 10 mg by RECTAL route once daily as needed for constipation. - magnesium hydroxide (MOM) 400 mg/5 mL suspension Take 30 mL by mouth once daily as needed for constipation. - senna-docusate (SENEXON-S) 8.6-50 mg per tablet Take 1 tablet by mouth as needed for constipation. - naloxone (NARCAN) 1 mg/mL for intranasal administration 1 mg by INTRANASAL route as needed for known or suspected opioid overdose. Once for opioid overdose may repeat every 2-3 min - insulin lispro 100 unit/mL injection Sliding scale- Blood sugar 111-150 Give 0 units 151-200 Give 1 unit 201-250 Give 2 units 251-300 Give 3 units 301-350 Give 4 units 351-400 Give 5 units Greater than 400 Give 5 units and Notify Provider - fluticasone (FLONASE) 50 mcg/actuation nasal spray Use 2 Sprays in each nostril once daily. - ondansetron (ZOFRAN) 4 mg tablet Take 4 mg by mouth every 8 hours as needed for nausea/vomiting. - traMADol (ULTRAM) 50 mg tablet Take 50 mg by mouth every 6 hours as needed for pain. - acetaminophen (TYLENOL) 325 mg tablet Take 2 tablets by mouth every 6 hours as needed for fever (specify temp.) or pain (temp >100.1F). - senna (SENOKOT) 8.6 mg tab Take 1 tablet by mouth two times a day. - empagliflozin (JARDIANCE) 25 mg tablet TAKE 1 TABLET BY MOUTH EVERY DAY WITH BREAKFAST - ACCU-CHEK JOSE PLUS TEST STRP test strip USE TO TEST BLOOD GLUCOSE 3 TIMES DAILY - enalapril (VASOTEC) 20 mg tablet Take 0.5 tablets by mouth two times a day. - atorvastatin (LIPITOR) 80 mg tablet take 1 tablet by mouth every day - furosemide (LASIX) 20 mg tablet Take 20 mg by mouth once daily. 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 - aspirin, enteric coated (ASPIRIN, ENTERIC COATED) 81 mg EC tablet Take 81 mg by mouth once daily. - cyanocobalamin, vitamin B-12, 1,000 mcg/mL kit 1,000 mcg by INJECTION(UNSPECIFIED PARENTERAL ROUTES) route once every month. - Blood Pressure Monitor Please monitor blood pressure 1-2 hours after taking morning medications. - Zinc 50 mg tab Take 50 mg by mouth once daily. - multivit,thx,calcium,i nelly,mins (MULTIVITAMIN AND MINERAL ORAL) Take 1 tablet by mouth once daily. - FLUoxetine (PROZAC) 40 mg capsule Take by mouth q 24 HR. - lancets (ONE TOUCH DELICA) 33 gauge USE TO BLOOD GLUCOSE 3 TIMES DAILY. INSULIN DEPENDENT E11.3299, E11.65, Z79.4 - insulin needles, DISPOSABLE, (BD INSULIN PEN NEEDLE UF) 31 gauge x 5/16 FOUR DAILY FOR INSULIN INJECTIONS. - Blood-Glucose Meter misc Use to test blood glucose 3 times daily. Insulin Dependent E11.3299, E11.65, Z79.4 - Cholecalciferol, Vitamin D3, 50 mcg (2,000 unit) cap Take 1 tablet by mouth once daily. Problem List As Of Date 11/21/2024 Noted Resolved Type 2 diabetes mellitus with proliferative ret*08/08/1999 Mixed hyperlipidemia [E78.2] 08/08/2012 Insulin long-term use (HCC) [Z79.4] 08/09/2012 12/12/2018 Primary hypertension [I10] 05/16/2013 Depression [F32.A] 05/16/2013 08/18/2024 Vitamin D deficiency [E55.9] / (more content not included)... [facility] Tele[facility] (AKCAT) SHADE BRAMBILA ([id number]) 1960 F Date Time Provider Department 11/20/24 SHANEL NEWELL During your visit today, we recorded the following information about you: Kathleen De La Rosa 11/20/2024 10:24 AM Signed Scheduled C on 11/29/[address] Patel . Please instruct patient on which medications to stop and/or keep taking. Patient will need ride home and someone overnight. Someone from production laborer will call the patient the day before to go over instructions. Allergies As of Date: 11/20/2024 Noted Allergy Reaction AMOXICILLIN 11/26/2022 16 - Unknown Comments: Patient does not remember reaction SILICONE 06/22/2024 2 - Rash 9 - Itching Comments: Dressing with silicone border caused inflammation where the bandage was placed CODEINE 09/26/2022 5 - Intolerance Comments: Patient states Makes her Hyper MORPHINE 08/17/2023 5 - Intolerance Comments: Difficulty waking up / groggy Date Reviewed: 11/17/2024 Reviewed by: Alex Simpson LPN - Fully Assessed Prescriptions as of 11/24/2024 - GLUCAGON EMERGENCY KIT, HUMAN, INJECTION by INJECTION(UNSPECIFIED PARENTERAL ROUTES) route. - sodium phosphate,mono-dibasic (ENEMA RECTAL) by RECTAL route as needed (constipation). may be given daily, if needed - ferrous sulfate 325 mg (65 mg iron) tablet Take 325 mg by mouth once daily. - bisacodyl (DULCOLAX) 10 mg supp 10 mg by RECTAL route once daily as needed for constipation. - magnesium hydroxide (MOM) 400 mg/5 mL suspension Take 30 mL by mouth once daily as needed for constipation. - senna-docusate (SENEXON-S) 8.6-50 mg per tablet Take 1 tablet by mouth as needed for constipation. - naloxone (NARCAN) 1 mg/mL for intranasal administration 1 mg by INTRANASAL route as needed for known or suspected opioid overdose. Once for opioid overdose may repeat every 2-3 min - insulin lispro 100 unit/mL injection Sliding scale- Blood sugar 111-150 Give 0 units 151-200 Give 1 unit 201-250 Give 2 units 251-300 Give 3 units 301-350 Give 4 units 351-400 Give 5 units Greater than 400 Give 5 units and Notify Provider - fluticasone (FLONASE) 50 mcg/actuation nasal spray Use 2 Sprays in each nostril once daily. - ondansetron (ZOFRAN) 4 mg tablet Take 4 mg by mouth every 8 hours as needed for nausea/vomiting. - traMADol (ULTRAM) 50 mg tablet Take 50 mg by mouth every 6 hours as needed for pain. - acetaminophen (TYLENOL) 325 mg tablet Take 2 tablets by mouth every 6 hours as needed for fever (specify temp.) or pain (temp >100.1F). - senna (SENOKOT) 8.6 mg tab Take 1 tablet by mouth two times a day. - empagliflozin (JARDIANCE) 25 mg tablet TAKE 1 TABLET BY MOUTH EVERY DAY WITH BREAKFAST - ACCU-CHEK JOSE PLUS TEST STRP test strip USE TO TEST BLOOD GLUCOSE 3 TIMES DAILY - enalapril (VASOTEC) 20 mg tablet Take 0.5 tablets by mouth two times a day. - atorvastatin (LIPITOR) 80 mg tablet take 1 tablet by mouth every day - furosemide (LASIX) 20 mg tablet Take 20 mg by mouth once daily. 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 - aspirin, enteric coated (ASPIRIN, ENTERIC COATED) 81 mg EC tablet Take 81 mg by mouth once daily. - cyanocobalamin, vitamin B-12, 1,000 mcg/mL kit 1,000 mcg by INJECTION(UNSPECIFIED PARENTERAL ROUTES) route once every month. - Blood Pressure Monitor Please monitor blood pressure 1-2 hours after taking morning medications. - Zinc 50 mg tab Take 50 mg by mouth once daily. - multivit,thx,calcium,i nelly,mins (MULTIVITAMIN AND MINERAL ORAL) Take 1 tablet by mouth once daily. - FLUoxetine (PROZAC) 40 mg capsule Take by mouth q 24 HR. - lancets (ONE TOUCH DELICA) 33 gauge USE TO BLOOD GLUCOSE 3 TIMES DAILY. INSULIN DEPENDENT E11.3299, E11.65, Z79.4 - insulin needles, DISPOSABLE, (BD INSULIN PEN NEEDLE UF) 31 gauge x 5/16 FOUR DAILY FOR INSULIN INJECTIONS. - Blood-Glucose Meter misc Use to test blood glucose 3 times daily. Insulin Dependent E11.3299, E11.65, Z79.4 - Cholecalciferol, Vitamin D3, 50 mcg (2,000 unit) cap Take 1 tablet by mouth once daily. 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 Normal [facility] CNOVon 11-17-2024 CNOV Office Visit (CARDMM ) SHADE BRAMBILA ([id number]) 1960 F Date Time Provider Department 11/17/24 3:30 PM SHANEL NEWELL During your visit today, we recorded the following information about you: Pulse Blood pressure Weight Height 73/minute 100/46 90.3 kg 1.727 m Shanel Newell APRN.HEEL CURVER 11/17/2024 4:28 PM [facility] Department of Cardiovascular Medicine SECTION OF CLINICAL CARDIOLOGY OUTPATIENT VISIT DATE November 17, 2024 OUTPATIENT VISIT TYPE ESTABLISHED CHIEF COMPLAINT: Follow up HISTORY OF PRESENT ILLNESS: Ms. Brambila is a 64 year old female with history of chronic HFpEF, RWMA, HTN, HLD, peripheral vascular disease, NELLY, and diabetes mellitus type 2 who presents today for a cardiovascular medicine follow-up visit. She was last seen in the office on 03/06/2024 okay at which time she was noted to be above her dry weight with some mild signs of volume overload. She was asked to take as needed Lasix for 2 to 3 days until weight returns to baseline. Plan was for follow-up in 6 months with continue follow-up with heart failure clinic in between. She was subsequently admitted to [facility] in July and August for complications secondary to nonhealing wounds on her bilateral lower legs. During July admission she was seen by cardiology due to concern for acute on chronic HFpEF for which she was diuresed with IV Lasix. Echo during admission showed new RWMA and reduction in EF for which cardiology was consulted and recommended OP work up. She was again seen in [place] [facility] in September for wound bleeding after wound vac was removed. Her lab work an imaging were therapeutic and she was discharged home without further intervention. Since her last office visit and subsequent hospitalizations she has been doing relatively well for the last few months. She currently is weightbearing but only for transfers. She is starting to work with physical therapy 3 times a week in which they help her walk. She did this today without any exertional complaints. Her lower extremity edema has been stable. She sleeps at a slight incline as she has some shortness of breath when completely flat. Breathing feels better if she lays on her side. She continues with hyperbaric therapy and wound clinic for her lower extremity wounds. Her blood pressure is being checked at the facility as well as at hyperbaric therapy but she is unsure what it has been running. She denies any chest pain, palpitations, lightheadedness, dizziness, presyncope, or syncope. 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 Vitamin D deficiency 01/05/2017 PAST SURGICAL HISTORY Procedure Laterality Date AMPUTATION TOE,MT-P JT Right 07/2022 Hallux AMPUTATION TOE,MT-P JT Right 10/2023 removal of remaining right toes DILATION AND CURETTAGE DXAND/THER NONOBSTETRIC x3 EXTENSIVE HAND SURGERY Dupuytren contracture TONSILLECTOMY HX TOTAL ABDOM HYSTERECTOMY 08/2023 with BSO Social History Tobacco Use Smoking status: Never Passive exposure: Never Smokeless tobacco: Never Vaping Use Vaping status: Never Used Substance Use Topics Alcohol use: Not Currently Comment: Occ - 3 glasses of wine a year Drug use: No FAMILY HISTORY Problem Relation Age of Onset Hypertension Mother other (polycystic kidney disease) Mother Heart Father CHF Hypertension Father Diabetes Brother other (testicular cancer) Brother Coronary Artery Disease Brother MD and at age 45 other (CHF) Paternal Grandmother Cancer Paternal Aunt breast CA ALLERGIES: ALLERGIES Allergen Reactions Amoxicillin Unknown Patient does not remember reaction Silicone Rash, Itching Dressing with silicone border caused inflammation where the bandage was placed Codeine Intolerance Patient states Makes her Hyper Morphine Intolerance Difficulty waking up / groggy MEDICATIONS: GLUCAGON EMERGENCY KIT, HUMAN, INJECTION by INJECTION(UNSPECIFIED PARENTERAL ROUTES) route. sodium phosphate,mono-dibasic (ENEMA RECTAL) by RECTAL route as needed (constipation). may be given daily, if needed ferrous sulfate 325 mg (65 mg iron) tablet Take 325 mg by mouth once daily. bisacodyl (DULCOLAX) 10 mg supp 10 mg by RECTAL route once daily as needed for constipation. magnesium hydroxide (MOM) 400 mg (more content not included)... [facility] CBC-Complete Blood Cnt No Di ffon 11-06-2024 Erythrocyte distribution width (RBC) [Ratio] 18.1 % High 11.6-14.6 [facility] Comment on above: Order Comment: 317.1 Performed By: #### L 501.1105, L501.6710, L501.4405, L100.0100, L101.9900, L501.8820 #### [facility] [address] [place], [address] Hematocrit (Bld) [Volume fraction] 30.7 % Low 37-47 [facility] Comment on above: Order Comment: 317.1 Performed By: #### L 501.1105, L501.6710, L501.4405, L100.0100, L101.9900, L501.8820 #### [facility] [address] [place], [address] Hemoglobin (Bld) [Mass/Vol] 9.4 g/dL Low 12.0-15.0 [facility] Comment on above: Order Comment: 317.1 Performed By: #### L 501.1105, L501.6710, L501.4405, L100.0100, L101.9900, L501.8820 #### [facility] [address] [place], [address] MCH (RBC) [Entitic mass] 24.7 pg Low 27.0-32.0 [facility] Comment on above: Order Comment: 317.1 Performed By: #### L 501.1105, L501.6710, L501.4405, L100.0100, L101.9900, L501.8820 #### [facility] [address] [place], [address] MCHC (RBC) [Mass/Vol] 30.6 g/dL Low 32-36 [place] Comment on above: Order Comment: 317.1 Performed By: #### L 501.1105, L501.6710, L501.4405, L100.0100, L101.9900, L501.8820 #### [facility] [address] [place], [address] MCV (RBC) [Entitic vol] 80.6 fL Low 81-99 [facility] Comment on above: Order Comment: 317.1 Performed By: #### L 501.1105, L501.6710, L501.4405, L100.0100, L101.9900, L501.8820 #### [facility] [address] [place], [address] Platelet mean volume (Bld) [Entitic vol] 8.8 fL Normal 6.2-12.0 [facility] Comment on above: Order Comment: 317.1 Performed By: #### L 501.1105, L501.6710, L501.4405, L100.0100, L101.9900, L501.8820 #### [facility] [address] [place], [address] Platelets (Bld) [#/Vol] 290 10*3/uL Normal 150-450 [facility] Comment on above: Order Comment: 317.1 Performed By: #### L 501.1105, L501.6710, L501.4405, L100.0100, L101.9900, L501.8820 #### [facility] [address] [place], [address] RBC (Bld) [#/Vol] 3.81 10*6/uL Low 4.2-5.4 [facility] Comment on above: Order Comment: 317.1 Performed By: #### L 501.1105, L501.6710, L501.4405, L100.0100, L101.9900, L501.8820 #### [facility] [address] [place], [address] RDW SD 53.2 fl High 35.1-43.9 [facility] Comment on above: Order Comment: 317.1 Performed By: #### L 501.1105, L501.6710, L501.4405, L100.0100, L101.9900, L501.8820 #### [facility] [address] [place], [address] WBC (Bld) [#/Vol] 9.9 10*3/uL Normal 4.4-11.0 [facility] Comment on above: Order Comment: 317.1 Performed By: #### L 501.1105, L501.6710, L501.4405, L100.0100, L101.9900, L501.8820 #### [facility] [address] [place], [address] Erythrocyte distribution wid th (RBC) [Ratio]Ordered By: Donavon De La Paz on 11-06-2024 Erythrocyte distribution width (RBC) [Entitic vol] 53.2 fL High 35.1-43.9 [facility] Erythrocyte distribution wid th ratioOrdered By: Donavon De La Paz on 11-06-2024 Erythrocyte distribution width (RBC) [Ratio] 18.1 % High 11.6-14.6 [facility] Erythrocyte distribution wid th standard deviationOrdered By: Donavon De La Paz on 11-06-2024 Erythrocyte distribution width (RBC) [Ratio] 53.2 fl High 35.1-43.9 [facility] Hematocrit Auto (Bld) [Volum e fraction]Ordered By: Donavon De La Paz on 11-06-2024 Hematocrit (Bld) [Volume fraction] 30.7 % Low 37-47 [facility] Hemoglobin measurementOrdere d By: Donavon De La Paz on 11-06-2024 Hemoglobin (Bld) [Mass/Vol] 9.4 g/dL Low 12.0-15.0 [facility] MCV (mean corpuscular volume ) determinationOrdered By: Donavon De La Paz on 11-06-2024 MCV (RBC) [Entitic vol] 80.6 fL Low 81-99 [facility] Mean corpuscular hemoglobin (MCH) determinationOrdered By: Donavon De La Paz on 11-06-2024 MCH (RBC) [Entitic mass] 24.7 pg Low 27.0-32.0 [facility] Mean corpuscular hemoglobin concentration (MCHC) determinationOrdered By: Donavon De La Paz on 11-06-2024 MCHC (RBC) [Mass/Vol] 30.6 g/dL Low 32-36 [place] Mean platelet volume determi nationOrdered By: Donavon De La Paz on 11-06-2024 Platelet mean volume (Bld) [Entitic vol] 8.8 fL 6.2-12.0 [facility] Platelet countOrdered By: Guerra on 11-06-2024 Platelets (Bld) [#/Vol] 290 10*3/uL 150-450 [facility] RBC Auto (Bld) [#/Vol]Ordere d By: Donavon De La Paz on 11-06-2024 RBC (Bld) [#/Vol] 3.81 10*6/uL Low 4.2-5.4 [facility] White blood cell (WBC) count Ordered By: Donavon De La Paz on 11-06-2024 WBC (Bld) [#/Vol] 9.9 10*3/uL 4.4-11.0 [facility] BUN/creatinine ratioOrdered By: Donavon De La Paz on 11-03-2024 Urea nitrogen/Creatinine [Mass ratio] 37.8 mg/mg High 10-20 [facility] Bilirubin, totalOrdered By: Donavon De La Paz on 11-03-2024 Bilirubin [Mass/Vol] 0.23 mg/dL 0.00-1.30 [facility] CBC-Complete Blood Cnt No Di ffon 11-03-2024 Erythrocyte distribution width (RBC) [Ratio] 17.9 % High 11.6-14.6 [facility] Comment on above: Order Comment: 317.1 Performed By: #### L 501.1105, L501.6710, L501.4405, L100.0100, L101.9900, L501.8820 #### [facility] [address] [place], [address] Hematocrit (Bld) [Volume fraction] 29.4 % Low 37-47 [facility] Comment on above: Order Comment: 317.1 Performed By: #### L 501.1105, L501.6710, L501.4405, L100.0100, L101.9900, L501.8820 #### [facility] [address] [place], [address] Hemoglobin (Bld) [Mass/Vol] 8.9 g/dL Low 12.0-15.0 [facility] Comment on above: Order Comment: 317.1 Performed By: #### L 501.1105, L501.6710, L501.4405, L100.0100, L101.9900, L501.8820 #### [facility] [address] [place], [address] MCH (RBC) [Entitic mass] 24.3 pg Low 27.0-32.0 [facility] Comment on above: Order Comment: 317.1 Performed By: #### L 501.1105, L501.6710, L501.4405, L100.0100, L101.9900, L501.8820 #### [facility] [address] [place], [address] MCHC (RBC) [Mass/Vol] 30.3 g/dL Low 32-36 [place] Comment on above: Order Comment: 317.1 Performed By: #### L 501.1105, L501.6710, L501.4405, L100.0100, L101.9900, L501.8820 #### [facility] [address] [place], [address] MCV (RBC) [Entitic vol] 80.3 fL Low 81-99 [facility] Comment on above: Order Comment: 317.1 Performed By: #### L 501.1105, L501.6710, L501.4405, L100.0100, L101.9900, L501.8820 #### [facility] [address] [place], [address] Platelet mean volume (Bld) [Entitic vol] 8.8 fL Normal 6.2-12.0 [facility] Comment on above: Order Comment: 317.1 Performed By: #### L 501.1105, L501.6710, L501.4405, L100.0100, L101.9900, L501.8820 #### [facility] [address] [place], [address] Platelets (Bld) [#/Vol] 317 10*3/uL Normal 150-450 [facility] Comment on above: Order Comment: 317.1 Performed By: #### L 501.1105, L501.6710, L501.4405, L100.0100, L101.9900, L501.8820 #### [facility] [address] [place], [address] RBC (Bld) [#/Vol] 3.66 10*6/uL Low 4.2-5.4 [facility] Comment on above: Order Comment: 317.1 Performed By: #### L 501.1105, L501.6710, L501.4405, L100.0100, L101.9900, L501.8820 #### [facility] [address] [place], [address] RDW SD 53.3 fl High 35.1-43.9 [facility] Comment on above: Order Comment: 317.1 Performed By: #### L 501.1105, L501.6710, L501.4405, L100.0100, L101.9900, L501.8820 #### [facility] [address] [place], [address] WBC (Bld) [#/Vol] 11.1 10*3/uL High 4.4-11.0 [facility] Comment on above: Order Comment: 317.1 Performed By: #### L 501.1105, L501.6710, L501.4405, L100.0100, L101.9900, L501.8820 #### [facility] [address] [place], [address] Carbon dioxide measurementOr dered By: Donavon De La Paz on 11-03-2024 CO2 [Moles/Vol] 26.3 mmol/L 22.0-29.0 [facility] Chloride measurementOrdered By: Donavon De La Paz on 11-03-2024 Chloride [Moles/Vol] 100 mmol/L 96-108 [facility] Comprehensive Metabolic Prof ilon 11-03-2024 Albumin [Mass/Vol] 3.1 g/dL Low 3.4-4.8 [facility] Comment on above: Order Comment: 317.1 Performed By: #### L 501.1105, L501.6710, L501.4405, L100.0100, L101.9900, L501.8820 #### [facility] [address] [place], [address] Albumin/Globulin [Mass ratio] 0.7 {ratio} Low 0.9-2.4 [facility] Comment on above: Order Comment: 317.1 Performed By: #### L 501.1105, L501.6710, L501.4405, L100.0100, L101.9900, L501.8820 #### [facility] [address] [place], [address] ALK PHOS 189 U/L High 35-104 [facility] Comment on above: Order Comment: 317.1 Performed By: #### L 501.1105, L501.6710, L501.4405, L100.0100, L101.9900, L501.8820 #### [facility] [address] [place], [address] ALT [Catalytic activity/Vol] 16 U/L Normal <=34 [facility] Comment on above: Order Comment: 317.1 Performed By: #### L 501.1105, L501.6710, L501.4405, L100.0100, L101.9900, L501.8820 #### [facility] [address] [place], [address] Anion gap [Moles/Vol] 10 mmol/L Normal 5-15 [place] Comment on above: Order Comment: 317.1 Performed By: #### L 501.1105, L501.6710, L501.4405, L100.0100, L101.9900, L501.8820 #### [facility] [address] [place], [address] AST [Catalytic activity/Vol] 26 U/L Normal <=31 [facility] Comment on above: Order Comment: 317.1 Performed By: #### L 501.1105, L501.6710, L501.4405, L100.0100, L101.9900, L501.8820 #### [facility] [address] [place], [address] Bilirubin [Mass/Vol] 0.23 mg/dL Normal 0.00-1.30 [facility] Comment on above: Order Comment: 317.1 Performed By: #### L 501.1105, L501.6710, L501.4405, L100.0100, L101.9900, L501.8820 #### [facility] [address] [place], [address] BUN/CRE 37.8 RATIO High 10-20 [facility] Comment on above: Order Comment: 317.1 Performed By: #### L 501.1105, L501.6710, L501.4405, L100.0100, L101.9900, L501.8820 #### [facility] [address] [place], [address] Calcium [Mass/Vol] 9.2 mg/dL Normal 7.6-11.0 [facility] Comment on above: Order Comment: 317.1 Performed By: #### L 501.1105, L501.6710, L501.4405, L100.0100, L101.9900, L501.8820 #### [facility] [address] [place], [address] Chloride [Moles/Vol] 100 mmol/L Normal 96-108 [facility] Comment on above: Order Comment: 317.1 Performed By: #### L 501.1105, L501.6710, L501.4405, L100.0100, L101.9900, L501.8820 #### [facility] [address] [place], [address] CO2 [Moles/Vol] 26.3 mmol/L Normal 22.0-29.0 [facility] Comment on above: Order Comment: 317.1 Performed By: #### L 501.1105, L501.6710, L501.4405, L100.0100, L101.9900, L501.8820 #### [facility] [address] [place], [address] Creatinine [Mass/Vol] 0.76 mg/dL Normal 0.70-1.20 [place] Comment on above: Order Comment: 317.1 Performed By: #### L 501.1105, L501.6710, L501.4405, L100.0100, L101.9900, L501.8820 #### [facility] [address] [place], [address] GFR/1.73 sq M.predicted among non-blacks MDRD (S/P/Bld) [Vol rate/Area] 87 mL/min/{1.73_m2} Normal >60 [facility] Comment on above: Order Comment: 317.1 Result Comment: mL/m in/1.73m2 CKD-EPI Creatinine Equation (2020) Performed By: #### L 501.1105, L501.6710, L501.4405, L100.0100, L101.9900, L501.8820 #### [facility] [address] [place], [address] Globulin (S) [Mass/Vol] 4.3 g/dL High 2.2-4.2 [facility] Comment on above: Order Comment: 317.1 Performed By: #### L 501.1105, L501.6710, L501.4405, L100.0100, L101.9900, L501.8820 #### [facility] [address] [place], [address] Glucose [Mass/Vol] 147 mg/dL High 70-99 [facility] Comment on above: Order Comment: 317.1 Performed By: #### L 501.1105, L501.6710, L501.4405, L100.0100, L101.9900, L501.8820 #### [facility] [address] [place], [address] Potassium [Moles/Vol] 4.5 mmol/L Normal 3.3-5.1 [place] Comment on above: Order Comment: 317.1 Performed By: #### L 501.1105, L501.6710, L501.4405, L100.0100, L101.9900, L501.8820 #### [facility] [address] [place], [address] Sodium [Moles/Vol] 136 mmol/L Normal 133-145 [facility] Comment on above: Order Comment: 317.1 Performed By: #### L 501.1105, L501.6710, L501.4405, L100.0100, L101.9900, L501.8820 #### [facility] [address] [place], [address] T PROT 7.3 g/dL Normal 5.9-8.4 [facility] Comment on above: Order Comment: 317.1 Performed By: #### L 501.1105, L501.6710, L501.4405, L100.0100, L101.9900, L501.8820 #### [facility] [address] [place], [address] Urea nitrogen [Mass/Vol] 29 mg/dL High 4-19 [facility] Comment on above: Order Comment: 317.1 Performed By: #### L 501.1105, L501.6710, L501.4405, L100.0100, L101.9900, L501.8820 #### [facility] [address] [place], [address] Erythrocyte distribution wid th (RBC) [Ratio]Ordered By: Donavon De La Paz on 11-03-2024 Erythrocyte distribution width (RBC) [Entitic vol] 53.3 fL High 35.1-43.9 [facility] Erythrocyte distribution wid th ratioOrdered By: Donavon De La Paz on 11-03-2024 Erythrocyte distribution width (RBC) [Ratio] 17.9 % High 11.6-14.6 [facility] Erythrocyte distribution wid th standard deviationOrdered By: Donavon De La Paz on 11-03-2024 Erythrocyte distribution width (RBC) [Ratio] 53.3 fl High 35.1-43.9 [facility] GFR/1.73 sq M.predicted jacque g non-blacks MDRD (S/P/Bld) [Vol rate/Area]Ordered By: Donavon De La Paz on 11-03-2024 Estimated GFR (MDRD) Non-Af Amer 87 >60 [facility] Comment on above: mL/min/1.73m2 CKD-EP I Creatinine Equation (2020) Glomerular filtration rate ( GFR) estimation/1.73 sq m using serum, plasma, or whole bOrdered By: Donavon De La Paz on 11-03-2024 GFR/1.73 sq M.predicted among non-blacks MDRD (S/P/Bld) [Vol rate/Area] 87 mL/min/{1.73_m2} >60 [facility] Comment on above: mL/min/1.73m2 CKD-EP I Creatinine Equation (2020) Hematocrit Auto (Bld) [Volum e fraction]Ordered By: Donavon De La Paz on 11-03-2024 Hematocrit (Bld) [Volume fraction] 29.4 % Low 37-47 [facility] Hemoglobin measurementOrdere d By: Donavon De La Paz on 11-03-2024 Hemoglobin (Bld) [Mass/Vol] 8.9 g/dL Low 12.0-15.0 [facility] - Chemistry and C hemistry - challengeOrdered By: Donavon De La Paz on 11-03-2024 AST [Catalytic activity/Vol] 26 U/L <32 [facility] MCV (mean corpuscular volume ) determinationOrdered By: Donavon De La Paz on 11-03-2024 MCV (RBC) [Entitic vol] 80.3 fL Low 81-99 [facility] Mean corpuscular hemoglobin (MCH) determinationOrdered By: Donavon De La Paz on 11-03-2024 MCH (RBC) [Entitic mass] 24.3 pg Low 27.0-32.0 [facility] Mean corpuscular hemoglobin concentration (MCHC) determinationOrdered By: Donavon De La Paz on 11-03-2024 MCHC (RBC) [Mass/Vol] 30.3 g/dL Low 32-36 [place] Mean platelet volume determi nationOrdered By: Donavon De La Paz on 11-03-2024 Platelet mean volume (Bld) [Entitic vol] 8.8 fL 6.2-12.0 [facility] Platelet countOrdered By: Guerra on 11-03-2024 Platelets (Bld) [#/Vol] 317 10*3/uL 150-450 [facility] RBC Auto (Bld) [#/Vol]Ordere d By: Donavon De La Paz on 11-03-2024 RBC (Bld) [#/Vol] 3.66 10*6/uL Low 4.2-5.4 [facility] Serum creatinine measurement (mass/volume)Ordered By: Donavon De La Paz on 11-03-2024 Creatinine [Mass/Vol] 0.76 mg/dL 0.70-1.20 [place] Serum globulin measurementOr dered By: Donavon De La Paz on 11-03-2024 Globulin (S) [Mass/Vol] 4.3 g/dL High 2.2-4.2 [facility] Serum glucose measurement (m ass/volume)Ordered By: Donavon De La Paz on 11-03-2024 Glucose [Mass/Vol] 147 mg/dL High 70-99 [facility] Serum or plasma alanine gasca otransferase (ALT) measurementOrdered By: Donavon De La Paz on 11-03-2024 ALT [Catalytic activity/Vol] 16 U/L <35 [facility] Serum or plasma albumin gonzalez urement (mass/volume)Ordered By: Donavon De La Paz on 11-03-2024 Albumin [Mass/Vol] 3.1 g/dL Low 3.4-4.8 [facility] Serum or plasma albumin/glob ulin mass ratioOrdered By: Donavon De La Paz on 11-03-2024 Albumin/Globulin [Mass ratio] 0.7 {ratio} Low 0.9-2.4 [facility] Serum or plasma alkaline meghann sphatase measurementOrdered By: Donavon De La Paz on 11-03-2024 ALP [Catalytic activity/Vol] 189 U/L High 35-104 [facility] Serum or plasma anion gap de termination (moles/volume)Ordered By: Donavon De La Paz on 11-03-2024 Anion gap [Moles/Vol] 10 mmol/L 5-15 [place] Serum or plasma calcium gonzalez urement (mass/volume)Ordered By: Donavon De La Paz on 11-03-2024 Calcium [Mass/Vol] 9.2 mg/dL 7.6-11.0 [facility] Serum or plasma potassium me asurementOrdered By: Donavon De La Paz on 11-03-2024 Potassium [Moles/Vol] 4.5 mmol/L 3.3-5.1 [place] Serum or plasma sodium measu rement (moles/volume)Ordered By: Donavon De La Paz on 11-03-2024 Sodium [Moles/Vol] 136 mmol/L 133-145 [facility] Serum or plasma urea nitroge n measurement (mass/volume)Ordered By: Donavon De La Paz on 11-03-2024 Urea nitrogen [Mass/Vol] 29 mg/dL High 4-19 [facility] Total proteinOrdered By: Selene De La Paz on 11-03-2024 Protein [Mass/Vol] 7.3 g/dL 5.9-8.4 [facility] White blood cell (WBC) count Ordered By: Donavon De La Paz on 11-03-2024 WBC (Bld) [#/Vol] 11.1 10*3/uL High 4.4-11.0 [facility] Microalb:Creat Ratio,Random URon 10-30-2024 Creatinine [Mass/Vol] 41.70 mg/dL Normal NO RANGE EST. [facility] Comment on above: Order Comment: 317.1 Performed By: #### L 501.1105, L501.6710, L501.4405, L100.0100, L101.9900, L501.8820 #### [facility] [address] [place], [place], [id number] MALB:CRE 214.4 mg/g CRE High <30 mg/g CRE [facility] Comment on above: Order Comment: 317.1 Performed By: #### L 501.1105, L501.6710, L501.4405, L100.0100, L101.9900, L501.8820 #### [facility] [address] [place], [address] MICROALBUMIN,UR 89.4 mg/L Normal NO RANGE EST. [facility] Comment on above: Order Comment: 317.1 Performed By: #### L 501.1105, L501.6710, L501.4405, L100.0100, L101.9900, L501.8820 #### [facility] [address] [place], [address] Random urine microalbumin me asurementOrdered By: Donavon De La Paz on 10-30-2024 Urine Random Microalbumin 89.4 mg/L NO RANGE EST. [facility] Urine albumin/creatinine rat io for detection of microalbuminuriaOrdered By: Donavon De La Paz on 10-30-2024 Urine Microalbumin/Creatinine Ratio 214.4 mg/g CRE High <30 [facility] Urine creatinine measurement (mass/volume)Ordered By: Donavon De La Paz on 10-30-2024 Creatinine (U) [Mass/Vol] 41.70 mg/dL NO RANGE EST. [facility] CNOVon 10-27-2024 CNOV Normal [facility] Lipid Profileon 10-27-2024 CHOL Normal 200 [facility] Comment on above: Order Comment: 317.1 Result Comment: ALRE JUAN M COMPLETED Performed By: #### L 501.1105, L501.6710, L501.4405, L100.0100, L101.9900, L501.8820 #### [facility] [address] [place], [address] HDL Normal [facility] Comment on above: Order Comment: 317.1 Result Comment: ALRE JUAN M COMPLETED Performed By: #### L 501.1105, L501.6710, L501.4405, L100.0100, L101.9900, L501.8820 #### [facility] [address] [place], [address] LDL Normal 0-130 [facility] Comment on above: Order Comment: 317.1 Result Comment: ALRE JUAN M COMPLETED Performed By: #### L 501.1105, L501.6710, L501.4405, L100.0100, L101.9900, L501.8820 #### [facility] [address] [place], [address] TRIG Normal [facility] Comment on above: Order Comment: 317.1 Result Comment: ALRE JUAN M COMPLETED Performed By: #### L 501.1105, L501.6710, L501.4405, L100.0100, L101.9900, L501.8820 #### [facility] [address] [place], [address] VLDL Normal 5-40 [facility] Comment on above: Order Comment: 317.1 Result Comment: DEO MCGOWAN COMPLETED Performed By: #### L 501.1105, L501.6710, L501.4405, L100.0100, L101.9900, L501.8820 #### [facility] [address] [place], [address] High density lipoprotein (HD L) measurementOrdered By: Donavon De La Paz on 10-26-2024 Cholesterol in HDL [Mass/Vol] 44 mg/dL >40 [facility] Comment on above: The drugs N-Acetylcy steine and Metamizole may falsely depress this assay. Reference Range HDL <40 mg/dL Low HDL Cholesterol HDL >or= 60 mg/dL High HDL Cholesterol Lipid Profileon 10-26-2024 Cholesterol [Mass/Vol] 87 mg/dL Normal 200 [facility] Comment on above: Order Comment: 317.1 Result Comment: <200 mg/dL Desirable 200-240 mg/dL Borderline >240 mg/dL High Risk Performed By: #### L 501.1105, L501.6710, L501.4405, L100.0100, L101.9900, L501.8820 #### [facility] [address] [place], [address] Cholesterol in HDL [Mass/Vol] 44 mg/dL Normal [facility] Comment on above: Order Comment: 317.1 Result Comment: The drugs N-Acetylcysteine and Metamizole may falsely depress this assay. Reference Range HDL <40 mg/dL Low HDL Cholesterol HDL >or= 60 mg/dL High HDL Cholesterol Performed By: #### L 501.1105, L501.6710, L501.4405, L100.0100, L101.9900, L501.8820 #### [facility] [address] [place], [address] Cholesterol in LDL [Mass/Vol] 23 mg/dL Normal 0-130 [facility] Comment on above: Order Comment: 317.1 Performed By: #### L 501.1105, L501.6710, L501.4405, L100.0100, L101.9900, L501.8820 #### [facility] [address] [place], [address] Cholesterol in VLDL [Mass/Vol] 20 mg/dL Normal 5-40 [facility] Comment on above: Order Comment: 317.1 Performed By: #### L 501.1105, L501.6710, L501.4405, L100.0100, L101.9900, L501.8820 #### [facility] [address] [facility] [place], [address] Triglyceride [Mass/Vol] 100 mg/dL Normal [facility] Comment on above: Order Comment: 317.1 Result Comment: The drugs N-Acetylcysteine and Metamizole may falsely depress this assay. Serum Triglycerides Reference Interval Normal <150 mg/dL Borderline high 150 - 199 mg/dL High 200 - 499 mg/dL Very High > or = 500 mg/dL Performed By: #### L 501.1105, L501.6710, L501.4405, L100.0100, L101.9900, L501.8820 #### [facility] [address] [place], [address] Low density lipoprotein (LDL ) cholesterol measurementOrdered By: Donavon De La Paz on 10-26-2024 Cholesterol in LDL [Mass/Vol] 23 mg/dL 0-130 [facility] Serum or plasma cholesterol measurement (mass/volume)Ordered By: Donavon De La Paz on 10-26-2024 Cholesterol [Mass/Vol] 87 mg/dL <200 [facility] Comment on above: <200 mg/dL Desirable 200-240 mg/dL Borderline >240 mg/dL High Risk Triglycerides measurementOrd ered By: Donavon De La Paz on 10-26-2024 Triglyceride [Mass/Vol] 100 mg/dL <199 [facility] Comment on above: The drugs N-Acetylcy steine and Metamizole may falsely depress this assay.Serum Triglycerides Reference Interval Normal <150 mg/dL Borderline high 150 - 199 mg/dL High 200 - 499 mg/dL Very High > or = 500 mg/dL Very low density lipoprotein (VLDL) cholesterol measurementOrdered By: Donavon De La Paz on 10-26-2024 Very low density lipoprotein (VLDL) cholesterol measurement 20 mg/dL 5-40 [facility] VLDL Cholesterol 20 mg/dL 5-40 [facility] CNOVon 10-25-2024 CNOV Office Visit (ENDMED ) SHADE BRAMBILA ([id number]) 1960 F Date Time Provider Department 10/25/24 10:40 AM GIOVANNI CERRATO During your visit today, we recorded the following information about you: Pulse Respiration Blood pressure Weight 75/minute 16/minute 126/60 92.5 kg Height 1.727 m Giovanni Cerrato MD 10/27/2024 8:54 AM Signed Follow-up 64 year-old female resident at [facility], with insulin-requiring type 2 diabetes mellitus since 1998. Takes metformin 1000 mg every day, Jardiance, and sliding scale Humalog She has a FreeStyle CGMS. She notes no recent hypoglycemia detected by her glucose sensor. Non-smoker, denies alcohol use. NKDA. Review of her diet shows less overindulgence in carbohydrates. Medication list, insulin doses reviewed with the patient, reconciled. Maximal lifetime weight was 260 pounds. Had diabetic eye exam in 02/2024. 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 Weight has been decreasing. Hospitalized in 10/2023 with toe ulcer and had remaining toes removed (now functionally a TMA). Has bilateral leg ulcers, followed by podiatry. Has three wound vacs on currently. No longer needing U500 insulin. Current Outpatient Medications on File Prior to Visit Medication Sig sodium phosphate,mono-dibasic (ENEMA RECTAL) by RECTAL route as needed (constipation). may be given daily, if needed ferrous sulfate 325 mg (65 mg iron) tablet Take 325 mg by mouth once daily. bisacodyl (DULCOLAX) 10 mg supp 10 mg by RECTAL route once daily as needed for constipation. magnesium hydroxide (MOM) 400 mg/5 mL suspension Take 30 mL by mouth once daily as needed for constipation. senna-docusate (SENEXON-S) 8.6-50 mg per tablet Take 1 tablet by mouth as needed for constipation. naloxone (NARCAN) 1 mg/mL for intranasal administration 1 mg by INTRANASAL route as needed for known or suspected opioid overdose. Once for opioid overdose may repeat every 2-3 min insulin lispro 100 unit/mL injection Sliding scale- Blood sugar 111-150 Give 0 units 151-200 Give 1 unit 201-250 Give 2 units 251-300 Give 3 units 301-350 Give 4 units 351-400 Give 5 units Greater than 400 Give 5 units and Notify Provider fluticasone (FLONASE) 50 mcg/actuation nasal spray Use 2 Sprays in each nostril once daily. ondansetron (ZOFRAN) 4 mg tablet Take 4 mg by mouth every 8 hours as needed for nausea/vomiting. traMADol (ULTRAM) 50 mg tablet Take 50 mg by mouth every 6 hours as needed for pain. acetaminophen (TYLENOL) 325 mg tablet Take 2 tablets by mouth every 6 hours as needed for fever (specify temp.) or pain (temp >100.1F). senna (SENOKOT) 8.6 mg tab Take 1 tablet by mouth two times a day. (Patient taking differently: Take 8.6 mg by mouth as needed.) empagliflozin (JARDIANCE) 25 mg tablet TAKE 1 TABLET BY MOUTH EVERY DAY WITH BREAKFAST ACCU-CHEK JOSE PLUS TEST STRP test strip USE TO TEST BLOOD GLUCOSE 3 TIMES DAILY enalapril (VASOTEC) 20 mg tablet Take 0.5 tablets by mouth two times a day. atorvastatin (LIPITOR) 80 mg tablet take 1 tablet by mouth every day furosemide (LASIX) 20 mg tablet Take 20 mg by mouth once daily. 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 aspirin, enteric coated (ASPIRIN, ENTERIC COATED) 81 mg EC tablet Take 81 mg by mouth once daily. cyanocobalamin, vitamin B-12, 1,000 mcg/mL kit 1,000 mcg by INJECTION(UNSPECIFIED PARENTERAL ROUTES) route once every month. Blood Pressure Monitor Please monitor blood pressure 1-2 hours after taking morning medications. Zinc 50 mg tab Take 50 mg by mouth once daily. multivit,thx,calcium,i nelly,mins (MULTIVITAMIN AND MINERAL ORAL) Take 1 tablet by mouth once daily. FLUoxetine (PROZAC) 40 mg capsule Take by mouth q 24 HR. lancets (ONE TOUCH DELICA) 33 gauge USE TO BLOOD GLUCOSE 3 TIMES DAILY. INSULIN DEPENDENT E11.3299, E11.65, Z79.4 insulin needles, DISPOSABLE, (BD INSULIN PEN NEEDLE UF) 31 gauge x 5/16 FOUR DAILY FOR INSULIN INJECTIONS. Blood-Glucose Meter misc Use to test blood glucose 3 times daily. Insulin Dependent E11.3299, E11.65, Z79.4 Cholecalciferol, Vitamin D3, 50 mcg (2,000 unit) cap Take 1 tablet by mouth once daily. 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 Vitamin D deficiency 01/05/2017 PAST SURGICAL HISTORY PAS (more content not included)... Normal [facility] HEMOGLOBIN A1C (POC)on 10-25 HbA1c (Bld) [Mass fraction] 7.4 % Abnormal 4.3 - 5.6 % [facility] Comment on above: Location:[facility], [facility] [place], [address] Point of care (POC) Hemoglobin A1c (HGBA1C) testing is intended to assess glucose control and provide a management tool for patients known to have diabetes and their healthcare providers. Target HGBA1C levels may depend on specific clinical circumstances. POC HGBA1C is not intended for use as a diagnostic or screening test; laboratory-based testing should be used for diagnostic purposes. The following information is supplemental and may not be applicable to specific diabetes management situations: The POC device medication reconciliation technician provides a normal range of 4.2% to 6.5% for the HGBA1C POC test. However, the [place] [employer] guidelines indicate that patients with HGBA1C in the range of 5.7% to 6.4% are at increased risk for development of diabetes and that intervention by lifestyle modification may be beneficial. A HGBA1C level greater than or equal to 6.5% is considered diagnostic of diabetes, pending confirmatory testing. Use of HGBA1C testing to evaluate glucose control may not be appropriate for patients with hemoglobin variants or other conditions (e.g. anemia) that alter red blood cell lifespan. Interpretation and review of laboratory results Abnormal [facility] 10[facility]2024 [facility]12-[facility]24 36 Your fax has been successfully sent to office notes at [phone]. 10/12/2024 9:55:46 AM Origin Record Created by CHRISTY 10/12/2024 9:55:51 AM Conversion [[id number]] Type: application/postscript G3 to TIFF #1: Success [image/g3] (46ms) Mat TIFF #1: Success [image/tiff] (312ms) ([id number]) [facility] 36 Name of Caller: Laith rey Contact Ext. [phone] Reason for Appointment: Caller states patient is now at the [facility]. They are needing the last OV notes and any testing she may have done that day when he saw her on 10.09.24. FAX: [phone] Attn: Naresh If first fax does not go through use this secondary line. ) Please advise. Office Name: Ortho/Sport Med Normal [facility] Office Visiton 10-09-2024 Follow-up visit [id number] Shade Brambila 1960 F Date Provider Department Center 10/09/2024 [id number] OR None No family history on file Level of Service:42046 [place] OFFICE/OUTPATIENT NEW MODERATE MDM 45 MINUTES (57) Reason for Visit and Comments: New Patient [542] - Bilateral achilles wounds Normal [facility] Progress Noteon 10-09-2024 Progress Note [facility] - [address] [facility] [address] Dept: [phone] Dept Shade Brambila 1960 [id number] 10/09/2024 HISTORY OF PRESENT ILLNESS: Shade is a 64 y.o. female here today for evaluation of her bilateral leg. Patient presents today with her legal power of erisa attorney Shade states the problem has been present for several years. She reports that she has had episodes of wounds to bilateral posterior ankles which have previously healed. Last year she noted that they reopened and has been receiving care from podiatry and wound care for this. She was able to ambulate a short distance approximately 2 weeks ago using a walker. Otherwise she is largely wheelchair-bound and stands to pivot. She reports that she had a wound VAC that was removed on 10/01/2024. Due to concern for Achilles tendon rupture she was sent to the emergency department for wound check. She comes to the orthopedic foot and ankle clinic for continued evaluation. She reports neuropathy in bilateral legs up to the knees. She does have a history of angiogram on 08/01/2024 at outside hospital. Please see operative summary below for further details. Shade has tried or has been treated with the following: walking aids (crutches, cane, a walker,knee scooter,wheelchair, etc) and surgery. Review of Systems Surgical Risk Factors: Allergies to Metals or Latex: NO Have you been treated for a blood clot: NO Have you had a history of bleeding disorder: NO Have you had a history of Anesthetic problems: NO Do you have tendency to bruise easily: NO Do you experience prolonged or excessive bleeding from cuts or after surgery: NO General/Constitutional : General: no Cancer: NO Acute/Chronic Infections: NO HEENT/Neck: Problems with theThroat: NO Problems with the Eyes: NO Problems with the Ears: NO Problems with the Nose and Sinuses: NO Endocrine: Problems with Diabetes: yes Problems with Thyroid Disorder: NO Thorax: Problems with the Heart: NO Problems with the Lung: no Cardiovascular: Problems with Circulation: NO Problems with High Blood pressure: yes Gastrointestinal: Problems with Ulcers: NO Problems with the Liver: no Problems with Bowel Habits: NO Genitourinary: Problems with the Genitals: NO Urinary problems: NO Kidney disease or stones: NO Skin: Any general problems: NO Neurologic: Dizziness, blurred vision, headaches, problems with balance : NO Seizures or Stroke: NO Psychiatric: Emotional or Psychological disorders: NO Depression or Anxiety: no PAST MEDICAL HISTORY: Past Medical History: Diagnosis Date Anxiety Depression Diabetes mellitus (HCC) Hyperlipidemia Hypertension No Known Allergies PHYSICAL EXAM: There were no vitals taken for this visit. This is an age appropriate appearing female who is alert and oriented x 3. The patient appears well nourished. Psychiatric: The patient is able to verbalize normally and seems to have a good understanding of her situation. both lower extremity examination Lymphatic System: No areas of swelling are seen Vascular: Dorsalis pedis pulse: Bilateral feet are warm and dry, unable to palpate pulses. Capillary refill is less than 3 seconds Skin/nails: Warm and dry with wounds as seen in the attached images below. There are 2 very large wounds to posterior aspect of bilateral heels. On the left side there is evidence of Achilles rupture. Bilateral heel wounds are expressing purulent drainage and appear necrotic. There is also evidence of diffuse other small wounds to bilateral lower extremities with associated skin change and rubor Hair growth present on foot and toes TMA present on the right side, appears well-healed Neurologic: Sensation intact to light touch throughout the foot and the ankle Musculoskeletal: The calf is nontender to palpation. ROM: Decreased ROM of the foot and ankle Muscle strength testing BL: Anterior tibialis: R 4/5 L 4/5 Posterior tibialis: R 4/5 L 4/5 Peroneus brevis: R 4/5 L 4/5 Peroneus longus: R 4/5 L 4/5 Gastrocsoleus: R 4/5 L 0/5 Tenderness: Minimal tenderness to palpation about the posterior aspects of bilateral heels. Gait and Station: Shade is able to unable with a normal gait per report, not evaluated at this visit Shade reports that she is unable to stand without assistance, not evaluated at this visit RADIOGRAPHIC INTERPRETATION: No x-rays were available for review REVIEW OF RELATED PREVIOUS DOCUMENTATION: Extensive review of prior documentation was completed including review of urgent care visit on 10/01/[address] Nathanael Matos DO at [facility]. There is also extensive review of prior hospitalizations beginning 07/26/2024 and 08/17/2024 at [facility] (more content not included)... [facility] CNOVon 10-04-2024 CNOV Office Visit (FAMDNA ) SHADE BRAMBILA ([id number]) 1960 F Date Time Provider Department 10/04/24 ELDON GILL During your visit today, we recorded the following information about you: Juliet Stanley MA 10/19/2024 10:12 AM Signed Received visit elmer from [facility]. Placed in provider's inbox for review. Allergies As of Date: 10/04/2024 Noted Allergy Reaction AMOXICILLIN 11/26/2022 16 - Unknown Comments: Patient does not remember reaction SILICONE 06/22/2024 2 - Rash 9 - Itching Comments: Dressing with silicone border caused inflammation where the bandage was placed CODEINE 09/26/2022 5 - Intolerance Comments: Patient states Makes her Hyper MORPHINE 08/17/2023 5 - Intolerance Comments: Difficulty waking up / groggy Date Reviewed: 10/01/2024 Reviewed by: Radha Wren, RN - Fully Assessed Primary Visit Diagnosis:Routine eye exam [Z01.00] Prescriptions as of 10/19/2024 - sodium phosphate,mono-dibasic (ENEMA RECTAL) by RECTAL route as needed (constipation). may be given daily, if needed - ferrous sulfate 325 mg (65 mg iron) tablet Take 325 mg by mouth once daily. - bisacodyl (DULCOLAX) 10 mg supp 10 mg by RECTAL route once daily as needed for constipation. - magnesium hydroxide (MOM) 400 mg/5 mL suspension Take 30 mL by mouth once daily as needed for constipation. - senna-docusate (SENEXON-S) 8.6-50 mg per tablet Take 1 tablet by mouth as needed for constipation. - naloxone (NARCAN) 1 mg/mL for intranasal administration 1 mg by INTRANASAL route as needed for known or suspected opioid overdose. Once for opioid overdose may repeat every 2-3 min - insulin lispro 100 unit/mL injection Sliding scale- Blood sugar 111-150 Give 0 units 151-200 Give 1 unit 201-250 Give 2 units 251-300 Give 3 units 301-350 Give 4 units 351-400 Give 5 units Greater than 400 Give 5 units and Notify Provider - fluticasone (FLONASE) 50 mcg/actuation nasal spray Use 2 Sprays in each nostril once daily. - ondansetron (ZOFRAN) 4 mg tablet Take 4 mg by mouth every 8 hours as needed for nausea/vomiting. - traMADol (ULTRAM) 50 mg tablet Take 50 mg by mouth every 6 hours as needed for pain. - acetaminophen (TYLENOL) 325 mg tablet Take 2 tablets by mouth every 6 hours as needed for fever (specify temp.) or pain (temp >100.1F). - senna (SENOKOT) 8.6 mg tab Take 1 tablet by mouth two times a day. - empagliflozin (JARDIANCE) 25 mg tablet TAKE 1 TABLET BY MOUTH EVERY DAY WITH BREAKFAST - ACCU-CHEK JOSE PLUS TEST STRP test strip USE TO TEST BLOOD GLUCOSE 3 TIMES DAILY - enalapril (VASOTEC) 20 mg tablet Take 0.5 tablets by mouth two times a day. - atorvastatin (LIPITOR) 80 mg tablet take 1 tablet by mouth every day - furosemide (LASIX) 20 mg tablet Take 20 mg by mouth once daily. 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 - aspirin, enteric coated (ASPIRIN, ENTERIC COATED) 81 mg EC tablet Take 81 mg by mouth once daily. - cyanocobalamin, vitamin B-12, 1,000 mcg/mL kit 1,000 mcg by INJECTION(UNSPECIFIED PARENTERAL ROUTES) route once every month. - Blood Pressure Monitor Please monitor blood pressure 1-2 hours after taking morning medications. - Zinc 50 mg tab Take 50 mg by mouth once daily. - multivit,thx,calcium,i nelly,mins (MULTIVITAMIN AND MINERAL ORAL) Take 1 tablet by mouth once daily. - FLUoxetine (PROZAC) 40 mg capsule Take by mouth q 24 HR. - lancets (ONE TOUCH DELICA) 33 gauge USE TO BLOOD GLUCOSE 3 TIMES DAILY. INSULIN DEPENDENT E11.3299, E11.65, Z79.4 - insulin needles, DISPOSABLE, (BD INSULIN PEN NEEDLE UF) 31 gauge x 5/16 FOUR DAILY FOR INSULIN INJECTIONS. - Blood-Glucose Meter misc Use to test blood glucose 3 times daily. Insulin Dependent E11.3299, E11.65, Z79.4 - Cholecalciferol, Vitamin D3, 50 mcg (2,000 unit) cap Take 1 tablet by mouth once daily. 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 Normal [facility] 36on 10-03-2024 36 Error Normal [facility] HEALTHon 10-01-2024 ALLIED HEALTH Normal [facility] CBC W Auto Differential pane l (Bld)on 10-01-2024 Basophils (Bld) [#/Vol] 0.03 10*3/uL Normal <0.11 [facility] Comment on above: Order Comment: Speci men Type: BLOOD SPECIMENOrdering Facility: [facility] Address: [address] [place] [address] Performed By: #### 5 7021-8 ####[facility] LABORATORYCLIA [id number] [place] [address] [place] Basophils/100 WBC (Bld) 0.3 % Normal [facility] Comment on above: Order Comment: Speci men Type: BLOOD SPECIMENOrdering Facility: [facility] Address: [address] [place] [address] Performed By: #### 5 7021-8 ####RODRIGUEZ LABORATORYCLIA [id number] [place] [address] Differential cell count method Nom (Bld) Auto Normal [facility] Comment on above: Order Comment: Speci men Type: BLOOD SPECIMENOrdering Facility: [facility] Address: [facility] [place] [address] Performed By: #### 5 7021-8 ####RODRIGUEZ LABORATORYCLIA [id number] [place] [address] [place] Eosinophils (Bld) [#/Vol] 0.42 10*3/uL Normal <0.46 [facility] Comment on above: Order Comment: Speci men Type: BLOOD SPECIMENOrdering Facility: [facility] Address: [address] [place] [address] Performed By: #### 5 7021-8 ####RODRIGUEZ LABORATORYCLIA [id number] [address] Eosinophils/100 WBC (Bld) 4.1 % Normal [facility] Comment on above: Order Comment: Speci men Type: BLOOD SPECIMENOrdering Facility: [facility] Address: [address] [place] [address] Performed By: #### 5 7021-8 ####RODRIGUEZ LABORATORYCLIA [id number] [address] [place] Erythrocyte distribution width (RBC) [Ratio] 19.6 % High 11.5-15.0 [facility] Comment on above: Order Comment: Speci men Type: BLOOD SPECIMENOrdering Facility: [facility] Address: [address] [place] [address] Performed By: #### 5 7021-8 ####RODRIGUEZ LABORATORYCLIA [id number] [address] [place] Hematocrit (Bld) [Volume fraction] 32.7 % Low 36.0-46.0 [facility] Comment on above: Order Comment: Speci men Type: BLOOD SPECIMENOrdering Facility: [facility] Address: [address] [place] [address] Performed By: #### 5 7021-8 ####RODRIGUEZ LABORATORYCLIA [id number] [place] [address] [place] Hemoglobin (Bld) [Mass/Vol] 10.0 g/dL Low 11.5-15.5 [facility] Comment on above: Order Comment: Speci men Type: BLOOD SPECIMENOrdering Facility: [facility] Address: [address] [place] [address] Performed By: #### 5 7021-8 ####RODRIGUEZ LABORATORYCLIA [id number] [place] [address] [place] Immature granulocytes (Bld) [#/Vol] 0.03 10*3/uL Normal <0.10 [facility] Comment on above: Order Comment: Speci men Type: BLOOD SPECIMENOrdering Facility: [facility] Address: [address] [place] [address] Performed By: #### 5 7021-8 ####RODRIGUEZ LABORATORYCLIA [id number] [address] Immature granulocytes/100 WBC (Bld) 0.3 % Normal [facility] Comment on above: Order Comment: Speci men Type: BLOOD SPECIMENOrdering Facility: [facility] Address: [address] [place] [address] Performed By: #### 5 7021-8 ####RODRIGUEZ LABORATORYCLIA [id number] [place] [address] [place] Lymphocytes (Bld) [#/Vol] 1.47 10*3/uL Normal 1.00-4.00 [facility] Comment on above: Order Comment: Speci men Type: BLOOD SPECIMENOrdering Facility: [facility] Address: [address] [place] [address] Performed By: #### 5 7021-8 ####RODRIGUEZ LABORATORYCLIA [id number] [address] [place] Lymphocytes/100 WBC (Bld) 14.3 % Normal [facility] Comment on above: Order Comment: Speci men Type: BLOOD SPECIMENOrdering Facility: [facility] Address: [address] [place] [address] Performed By: #### 5 7021-8 ####RODRIGUEZ LABORATORYCLIA [id number] [address] [address] MCH (RBC) [Entitic mass] 24.6 pg Low 26.0-34.0 [facility] Comment on above: Order Comment: Speci men Type: BLOOD SPECIMENOrdering Facility: [facility] Address: [address] [place] [address] Performed By: #### 5 7021-8 ####RODRIGUEZ LABORATORYCLIA [id number] [address] MCHC (RBC) [Mass/Vol] 30.6 g/dL Normal 30.5-36.0 [facility] Comment on above: Order Comment: Speci men Type: BLOOD SPECIMENOrdering Facility: [facility] Address: [address] [place] [address] Performed By: #### 5 7021-8 ####[facility] LABORATORYCLIA [id number] [address] MCV (RBC) [Entitic vol] 80.5 fL Normal 80.0-100.0 [facility] Comment on above: Order Comment: Speci men Type: BLOOD SPECIMENOrdering Facility: [facility] Address: [address] [place] [address] Performed By: #### 5 7021-8 ####[facility] LABORATORYCLIA [id number] [address] Monocytes (Bld) [#/Vol] 1.03 10*3/uL High <0.87 [facility] Comment on above: Order Comment: Speci men Type: BLOOD SPECIMENOrdering Facility: [facility] Address: [address] [place] [address] Performed By: #### 5 7021-8 ####RODRIGUEZ LABORATORYCLIA [id number] [address] Monocytes/100 WBC (Bld) 10.0 % Normal [facility] Comment on above: Order Comment: Speci men Type: BLOOD SPECIMENOrdering Facility: [facility] Address: [address] [place] [address] Performed By: #### 5 7021-8 ####RODRIGUEZ LABORATORYCLIA [id number] [place] [address] [place] Neutrophils (Bld) [#/Vol] 7.31 10*3/uL Normal 1.45-7.50 [facility] Comment on above: Order Comment: Speci men Type: BLOOD SPECIMENOrdering Facility: [facility] Address: [address] [place] [address] Performed By: #### 5 7021-8 ####RODRIGUEZ LABORATORYCLIA [id number] [place] [address] [place] Neutrophils/100 WBC (Bld) 71.0 % Normal [facility] Comment on above: Order Comment: Speci men Type: BLOOD SPECIMENOrdering Facility: [facility] Address: [address] [place] [address] Performed By: #### 5 7021-8 ####RODRIGUEZ LABORATORYCLIA [id number] [place] [address] [place] Nucleated RBC (Bld) [#/Vol] 10*3/uL Normal <0.01 [facility] Comment on above: Order Comment: Speci men Type: BLOOD SPECIMENOrdering Facility: [facility] Address: [address] [place] [address] Performed By: #### 5 7021-8 ####RODRIGUEZ LABORATORYCLIA [id number] [address] [place] Nucleated RBC/100 WBC (Bld) [Ratio] 0.0 /100 WBC Normal [facility] Comment on above: Order Comment: Speci men Type: BLOOD SPECIMENOrdering Facility: [facility] Address: [address] [place] [address] Performed By: #### 5 7021-8 ####RODRIGUEZ LABORATORYCLIA [id number] [place] [address] [place] Platelet mean volume (Bld) [Entitic vol] 9.0 fL Normal 9.0-12.7 [facility] Comment on above: Order Comment: Speci men Type: BLOOD SPECIMENOrdering Facility: [facility] Address: [address] [place] [address] Performed By: #### 5 7021-8 ####RODRIGUEZ LABORATORYCLIA [id number] [address] [place] Platelets (Bld) [#/Vol] 278 10*3/uL Normal 150-400 [facility] Comment on above: Order Comment: Speci men Type: BLOOD SPECIMENOrdering Facility: [facility] Address: [address] [place] [address] Performed By: #### 5 7021-8 ####RODRIGUEZ LABORATORYCLIA [id number] [place] [address] [place] RBC (Bld) [#/Vol] 4.06 10*6/uL Normal 3.90-5.20 [facility] Comment on above: Order Comment: Speci men Type: BLOOD SPECIMENOrdering Facility: [facility] Address: [address] [place] [address] Performed By: #### 5 7021-8 ####RODRIGUEZ LABORATORYCLIA [id number] [address] OF [facility] WBC (Bld) [#/Vol] 10.29 10*3/uL Normal 3.70-11.00 [facility] Comment on above: Order Comment: Speci men Type: BLOOD SPECIMENOrdering Facility: [facility] Address: [address] [place] [address] Performed By: #### 5 7021-8 ####RODRIGUEZ LABORATORYCLIA [id number] [address] Comprehensive metabolic 2000 panelon 10-01-2024 Albumin [Mass/Vol] 3.3 g/dL Low 3.9-4.9 [facility] Comment on above: Order Comment: Speci men Type: BLOOD SPECIMENOrdering Facility: [facility] Address: [address] [place] [address] Performed By: #### 2 4323-8 ####RODRIGUEZ LABORATORYCLIA [id number] [address] ALP [Catalytic activity/Vol] 217 U/L High 34-123 [facility] Comment on above: Order Comment: Speci men Type: BLOOD SPECIMENOrdering Facility: [facility] Address: [address] [place] [address] Performed By: #### 2 4323-8 ####RODRIGUEZ LABORATORYCLIA [id number] [address] ALT [Catalytic activity/Vol] 16 U/L Normal 7-38 [facility] Comment on above: Order Comment: Speci men Type: BLOOD SPECIMENOrdering Facility: [facility] Address: [address] [place] [address] Performed By: #### 2 4323-8 ####RODRIGUEZ LABORATORYCLIA [id number] [place] [address] [place] Anion gap [Moles/Vol] 10 mmol/L Normal 8-15 [facility] Comment on above: Order Comment: Speci men Type: BLOOD SPECIMENOrdering Facility: [facility] Address: [address] [place] [address] Performed By: #### 2 4323-8 ####RODRIGUEZ LABORATORYCLIA [id number] [address] [place] AST [Catalytic activity/Vol] 27 U/L Normal 13-35 [facility] Comment on above: Order Comment: Speci men Type: BLOOD SPECIMENOrdering Facility: [facility] Address: [facility] [place] [address] Performed By: #### 2 4323-8 ####RODRIGUEZ LABORATORYCLIA [id number] [address] [place] Bilirubin [Mass/Vol] 0.2 mg/dL Normal 0.2-1.3 [facility] Comment on above: Order Comment: Speci men Type: BLOOD SPECIMENOrdering Facility: [facility] Address: [address] [place] [address] Performed By: #### 2 4323-8 ####RODRIGUEZ LABORATORYCLIA [id number] [address] OF [facility] Calcium [Mass/Vol] 9.7 mg/dL Normal 8.5-10.2 [facility] Comment on above: Order Comment: Speci men Type: BLOOD SPECIMENOrdering Facility: [facility] Address: [facility] [place] [address] Performed By: #### 2 4323-8 ####RODRIGUEZ LABORATORYCLIA [id number] [address] STATES [facility] Chloride [Moles/Vol] 100 mmol/L Normal 98-107 [facility] Comment on above: Order Comment: Speci men Type: BLOOD SPECIMENOrdering Facility: [facility] Address: [address] [place] [address] Performed By: #### 2 4323-8 ####RODRIGUEZ LABORATORYCLIA [id number] [address] [place] CO2 [Moles/Vol] 26 mmol/L Normal 22-30 [facility] Comment on above: Order Comment: Lisbet men Type: BLOOD SPECIMENOrdering Facility: [facility] Address: [address] [place] [address] Performed By: #### 2 4323-8 ####RODRIGUEZ LABORATORYCLIA [id number] [address] Creatinine [Mass/Vol] 0.79 mg/dL Normal 0.58-0.96 [facility] Comment on above: Order Comment: Speci [facility] Type: BLOOD SPECIMENOrdering Facility: [facility] Address: [address] [place] [address] Performed By: #### 2 4323-8 ####RODRIGUEZ LABORATORYCLIA [id number] [address] Creatinine and Glomerular filtration rate.predicted panel (S/P/Bld) 84 mL/min/1.73m??? Normal >=60 [facility] Comment on above: Order Comment: Speci [facility] Type: BLOOD SPECIMENOrdering Facility: [facility] Address: [address] [place] [address] Result Comment: Anuj mated Glomerular Filtration Rate (eGFR) is calculated using the 2020 CKD-EPI creatinine equation. This equation utilizes serum creatinine, sex, and age as parameters. The creatinine assay has traceable calibration to isotope dilution-mass spectrometry. Refer to KDIGO guidelines for clinical interpretation. In patients with unstable renal function, e.g. those with acute kidney injury, the eGFR may not accurately reflect actual GFR. Performed By: #### 2 4323-8 ####RODRIGUEZ LABORATORYCLIA [id number] [place] [id number] [place] Glucose [Mass/Vol] 165 mg/dL High 74-99 [facility] Comment on above: Order Comment: Lisbet ojeda Type: BLOOD SPECIMENOrdering Facility: [facility] Address: [address] [place] [address] Result Comment: The [place] Diabetes [employer] (ADA) provides guidance for cutoff values for fasting glucose and random glucose. The ADA defines fasting as no caloric intake for at least 8 hours. Fasting plasma glucose results between 100 to 125 mg/dL indicate increased risk for diabetes (prediabetes).Fasting plasma glucose results greater than or equal to 126 mg/dL meet the criteria for diagnosis of diabetes. In the absence of unequivocal hyperglycemia, results should be confirmed by repeat testing. In a patient with classic symptoms of hyperglycemia or hyperglycemic crisis, random plasma glucose results greater than or equal to 200 mg/dL meet the criteria for diagnosis of diabetes.Reference: Standards of Medical Care in Diabetes 2016, [place] [employer]. Diabetes Care. 2016.39(Suppl 1). Performed By: #### 2 4323-8 ####RODRIGUEZ LABORATORYCLIA [id number] [place] [address] [place] Potassium [Moles/Vol] 4.3 mmol/L Normal 3.7-5.1 [facility] Comment on above: Order Comment: Lisbet ojeda Type: BLOOD SPECIMENOrdering Facility: [facility] Address: [address] [place] [address] Performed By: #### 2 4323-8 ####RODRIGUEZ LABORATORYCLIA [id number] [place] [id number] [place] Protein [Mass/Vol] 7.8 g/dL Normal 6.3-8.0 [facility] Comment on above: Order Comment: Lisbet ojeda Type: BLOOD SPECIMENOrdering Facility: [facility] Address: [address] [place] [address] Performed By: #### 2 4323-8 ####RODRIGUEZ LABORATORYCLIA [id number] [place] [address] [place] Sodium [Moles/Vol] 136 mmol/L Normal 136-144 [facility] Comment on above: Order Comment: Speci men Type: BLOOD SPECIMENOrdering Facility: [facility] Address: [address] [place] [address] Performed By: #### 2 4323-8 ####[facility]EN[facility] LABORATORYCLIA [id number] [place] [id number] [facility] Urea nitrogen [Mass/Vol] 32 mg/dL High 7- [facility] Comment on above: Order Comment: Speci men Type: BLOOD SPECIMENOrdering Facility: [facility] Address: [address] [place] [address] Performed By: #### 2 4323-8 ####PH[facility]EN[facility] LABORATORYCLIA [id number] [address] ED NOTEon 10-01-2024 ED NOTE Normal [facility] ED NOTE HNO ID: [id number] Author: DIALLO DIAZ RN Service: ? Author Type: Registered Nurse Type: ED Notes Filed: 10/01/2024 20:21 Note Text: Bed: ED-12 Expected date: Expected time: Means of arrival: [facility]/EMS Comments: [facility] ED PROV NOTEon 10-01-2024 ED PROV NOTE Normal [facility] XR ANKLE 3V AP/LAT/OBL LTon 10-01-2024 XR ANKLE 3V AP/LAT/OBL LT [facility] CNPNon 09-11-2024 [facility] Absolute neutrophil countOrd ered By: Donavon De La Paz on 09-07-2024 Neutrophils (Bld) [#/Vol] 6.6 10*3/uL 2.0-7.7 [facility] Basophil percentageOrdered B y: Donavon De La Paz on 09-07-2024 Basophils/100 WBC (Bld) 0.6 % 0-1 [facility] CBC W/Diff, Automatedon MICROCYTIC 1+ Normal [facility] Comment on above: Order Comment: 317.1 Performed By: #### L 501.1105, L501.6710, L501.4405, L100.0100, L101.9900, L501.8820 #### [facility] [address] [place], [address] SCHISTOCYTES RARE Normal [facility] Comment on above: Order Comment: 317.1 Performed By: #### L 501.1105, L501.6710, L501.4405, L100.0100, L101.9900, L501.8820 #### [facility] [address] [place], [address] TARGET CELLS RARE Normal [facility] Comment on above: Order Comment: 317.1 Performed By: #### L 501.1105, L501.6710, L501.4405, L100.0100, L101.9900, L501.8820 #### [facility] [address] [place], [address] Anisocytosis Ql (Bld) 2+ Normal [place] Comment on above: Order Comment: 317.1 Performed By: #### L 501.1105, L501.6710, L501.4405, L100.0100, L101.9900, L501.8820 #### [facility] [address] [place], [address] HYPOCHROMASIA 1+ Normal [facility] Comment on above: Order Comment: 317.1 Performed By: #### L 501.1105, L501.6710, L501.4405, L100.0100, L101.9900, L501.8820 #### [facility] [address] [place], [address] PLT EST ADEQUATE Normal ADEQ [facility] Comment on above: Order Comment: 317.1 Performed By: #### L 501.1105, L501.6710, L501.4405, L100.0100, L101.9900, L501.8820 #### [facility] [address] [place], [address] PLT MORPH LARGE Normal [facility] Comment on above: Order Comment: 317.1 Performed By: #### L 501.1105, L501.6710, L501.4405, L100.0100, L101.9900, L501.8820 #### [facility] [address] [place], [address] POLYCHROMASIA 1+ Normal [facility] Comment on above: Order Comment: 317.1 Performed By: #### L 501.1105, L501.6710, L501.4405, L100.0100, L101.9900, L501.8820 #### [facility] [address] [place], [place], [id number] (381) VACUOLATE CELLS 1+ Normal [facility] Comment on above: Order Comment: 317.1 Performed By: #### L 501.1105, L501.6710, L501.4405, L100.0100, L101.9900, L501.8820 #### [facility] [address] [place], [place], [id number] Eosinophil percentageOrdered By: Donavon De La Paz on 09-07-2024 Eosinophils/100 WBC (Bld) 6.1 % High 0-5 [facility] Erythrocyte distribution wid th (RBC) [Ratio]Ordered By: Donavon De La Paz on 09-07-2024 Erythrocyte distribution width (RBC) [Entitic vol] 58.4 fL High 35.1-43.9 [facility] Erythrocyte distribution wid th ratioOrdered By: [facility] on 09-07-2024 Erythrocyte distribution width (RBC) [Ratio] 20.2 % High 11.6-14.6 [facility] Ferritinon 09-07-2024 Ferritin [Mass/Vol] 72 ng/mL Normal 8-252 [facility] Comment on above: Order Comment: 317.1 Performed By: #### L 501.1105, L501.6710, L501.4405, L100.0100, L101.9900, L501.8820 #### [facility] [address] [place], [address] Ferritin measurementOrdered By: Donavon De La Paz on 09-07-2024 Ferritin [Mass/Vol] 72 ng/mL 8-252 [facility] Folates, (Folic Acid)on FOLATES 18.90 ng/mL Normal 3.1-55.4 [facility] Comment on above: Order Comment: 317.1 Performed By: #### L 501.1105, L501.6710, L501.4405, L100.0100, L101.9900, L501.8820 #### [facility] [address] [place], [address] Folic acid measurementOrdere d By: Donavon De La Paz on 09-07-2024 Folate 18.90 ng/mL 3.1-55.4 [facility] Hematocrit Auto (Bld) [Volum e fraction]Ordered By: Donavon De La Paz on 09-07-2024 Hematocrit (Bld) [Volume fraction] 32.6 % Low 37-47 [facility] Hemoglobin measurementOrdere d By: Donavon De La Paz on 09-07-2024 Hemoglobin (Bld) [Mass/Vol] 9.6 g/dL Low 12.0-15.0 [facility] Hypochromia Ql (Bld)Ordered By: Donavon De La Paz on 09-07-2024 Hypochromasia 1+ [facility] Immature granulocytes/100 WB C Auto (Bld)Ordered By: Donavon De La Paz on 09-07-2024 Immature granulocytes/100 WBC (Bld) 0.500 % 0.0-0.9 [facility] Comment on above: IG% - Immature Granu locytes (promyelocytes, myelocytes and metamyelocytes) > 1% indicates that a LEFT SHIFT is Present. Ironon 09-07-2024 Iron [Mass/Vol] 36 ug/dL Low 50-170 [facility] Comment on above: Order Comment: 317.1 Performed By: #### L 501.1105, L501.6710, L501.4405, L100.0100, L101.9900, L501.8820 #### [facility] [address] [place], [place], [address] Iron (Unsp spec) [Mass/Mass] Ordered By: Donavon De La Paz on 09-07-2024 Iron [Mass/Vol] 36 ug/dL Low 50-170 [facility] Iron Binding Capacity,Totalo n 09-07-2024 TIBC 216 ug/dL Low 250-450 [facility] Comment on above: Order Comment: 317.1 Performed By: #### L 501.1105, L501.6710, L501.4405, L100.0100, L101.9900, L501.8820 #### [facility] [address] [place], [address] Laboratory - Hematology and Cell countsOrdered By: Donavon De La Paz on 09-07-2024 Anisocytosis Ql (Bld) 2+ [place] Lymphocytes Auto (Unsp spec) [#/Vol]Ordered By: Donavon De La Paz on 09-07-2024 Lymphocytes (Bld) [#/Vol] 1.21 10*3/uL 0.83-4.51 [facility] Lymphocytes/100 WBC Auto (Un sp spec)Ordered By: Donavon De La Paz on 09-07-2024 Lymphocytes/100 WBC (Bld) 12.9 % Low 19-41 [facility] MCV (mean corpuscular volume ) determinationOrdered By: Donavon De La Paz on 09-07-2024 MCV (RBC) [Entitic vol] 82.1 fL 81-99 [facility] Mean corpuscular hemoglobin (MCH) determinationOrdered By: Donavon De La Paz on 09-07-2024 MCH (RBC) [Entitic mass] 24.2 pg Low 27.0-32.0 [facility] Mean corpuscular hemoglobin concentration (MCHC) determinationOrdered By: Donavon De La Paz on 09-07-2024 MCHC (RBC) [Mass/Vol] 29.4 g/dL Low 32-36 [place] Mean platelet volume determi nationOrdered By: Donavon De La Paz on 09-07-2024 Platelet mean volume (Bld) [Entitic vol] 9.4 fL 6.2-12.0 [facility] Microcytosis evaluation pane lOrdered By: Donavon De La Paz on 09-07-2024 Microcytosis 1+ [facility] Monocyte percentageOrdered B y: Donavon De La Paz on 09-07-2024 Monocytes/100 WBC (Bld) 8.9 % 0-10 [facility] Neutrophil percentageOrdered By: Donavon De La Paz on 09-07-2024 Neutrophils/100 WBC (Bld) 71.0 % High 47-70 [facility] Neutrophils.vacuolated LM Ql (Bld)Ordered By: Donavon De La Paz on 09-07-2024 Toxic Vacuolation 1+ [facility] Nucleated red blood cell per centageOrdered By: Donavon De La Paz on 09-07-2024 Nucleated RBC/100 WBC (Bld) [Ratio] 0 % 0-5 [facility] Platelet countOrdered By: Guerra on 09-07-2024 Platelets (Bld) [#/Vol] 288 10*3/uL 150-450 [facility] Platelet morphology finding Nom (Bld)Ordered By: Donavon De La Paz on 09-07-2024 Platelet Morphology Comment LARGE [facility] Platelets LM Ql (Bld)Ordered By: Donavon De La Paz on 09-07-2024 Platelet Estimate ADEQUATE ADEQ [facility] Polychromasia LM Ql (Bld)Ord ered By: Donavon De La Paz on 09-07-2024 Polychromasia 1+ [facility] RBC Auto (Bld) [#/Vol]Ordere d By: Donavon De La Paz on 09-07-2024 RBC (Bld) [#/Vol] 3.97 10*6/uL Low 4.2-5.4 [facility] Schistocytes LM Ql (Bld)Orde red By: Donavon De La Paz on 09-07-2024 Schistocytes RARE [facility] TIBCOrdered By: Donavon De La Paz on 09-07-2024 Total Iron Binding Capacity 216 ug/dL Low 250-450 [facility] Target cells LM Ql (Bld)Orde red By: Donavon De La Paz on 09-07-2024 Target Cells RARE [facility] Vitamin B12on 09-07-2024 Cobalamin (Vitamin B12) [Mass/Vol] 437 pg/mL Normal 211-911 [facility] Comment on above: Order Comment: 317.1 Performed By: #### L 501.1105, L501.6710, L501.4405, L100.0100, L101.9900, L501.8820 #### [facility] [address] [place], [place], [address] Vitamin B12 measurementOrder ed By: Donavon De La Paz on 09-07-2024 Cobalamin (Vitamin B12) [Mass/Vol] 437 pg/mL 211-911 [facility] White blood cell (WBC) count Ordered By: Donavon De La Paz on 09-07-2024 WBC (Bld) [#/Vol] 9.4 10*3/uL 4.4-11.0 [facility] Urine Cultureon 09-06-2024 URC Below infection leve l. Mixed Gram Pos Gram Neg Org [place] Count <1000 MIXC Mixed contaminants. Submit a new specimen if indicated. CALBP [place] Count <1000 Normal [facility] Comment on above: Performed By: #### L 501.1105, L501.6710, L501.4405, L100.0100, L101.9900, L501.8820 #### [facility] [address] [place], [place], [address] Bilirubin Test strip Ql (U)O rdered By: Donavon De La Paz on 09-04-2024 Bilirubin Ql (U) Negative Negative [facility] CNPNon 09-04-2024 CNPN Normal [facility] Epithelial cells.squamous LM Ql (Urine sed)Ordered By: Donavon De La Paz on 09-04-2024 Epithelial cells.squamous LM.HPF (Urine sed) [#/Area] 5 /[HPF] 5-10 [facility] Glucose Ql (U)Ordered By: Guerra on 09-04-2024 Glucose (U) [Mass/Vol] 1000 mg/dL High Normal [facility] Ketones Test strip Ql (U)Ord ered By: Donavon De La Paz on 12-30-2024 Ketones Ql (U) Negative Negative [facility] Microscopic analysis of urin e for red blood cells (RBC)Ordered By: Donavon De La Paz on 09-04-2024 Urine RBC 0 SEEN /hpf 0-5 [facility] Mucus LM Ql (Urine sed)Order ed By: Donavon De La Paz on 09-04-2024 Mucus Ql (Urine sed) 0 SEEN /hpf [place] Nitrite Test strip Ql (U)Ord ered By: Donavon De La Paz on 09-04-2024 Nitrite Ql (U) Negative Negative [facility] Protein Test strip Ql (U)Ord ered By: Donavon De La Paz on 09-04-2024 Protein Ql (U) 15 mg/dl High Negative [facility] Urinalysis, Completeon 09-04 EPI,SQUAMOUS 5-10 SEEN Normal 5-10 [facility] Comment on above: Order Comment: 317.1 Performed By: #### L 501.1105, L501.6710, L501.4405, L100.0100, L101.9900, L501.8820 #### [facility] [address] [place], [address] BACTERIA 0 SEEN Normal None Seen [facility] Comment on above: Order Comment: 317.1 Performed By: #### L 501.1105, L501.6710, L501.4405, L100.0100, L101.9900, L501.8820 #### [facility] [address] [place], [address] Mucus Ql (Urine sed) 0 SEEN Normal [facility] Comment on above: Order Comment: 317.1 Performed By: #### L 501.1105, L501.6710, L501.4405, L100.0100, L101.9900, L501.8820 #### [facility] [address] [place], [address] RBC 0 SEEN Normal 0-5 [facility] Comment on above: Order Comment: 317.1 Performed By: #### L 501.1105, L501.6710, L501.4405, L100.0100, L101.9900, L501.8820 #### [facility] [address] [place], [address] WBC 0 SEEN Normal 0-5 [facility] Comment on above: Order Comment: 317.1 Performed By: #### L 501.1105, L501.6710, L501.4405, L100.0100, L101.9900, L501.8820 #### [facility] [address] [place], [address] Urine blood detectionOrdered By: Donavon De La Paz on 09-04-2024 Urine Occult Blood 10 /ul High Negative [facility] Urine clarityOrdered By: Selene De La Paz on 09-04-2024 Clarity (U) Clear Clear [facility] Urine color determinationOrd ered By: Donavon De La Paz on 09-04-2024 Color (U) Yellow Yellow [facility] Urine cultureOrdered By: Selene De La Paz on 09-04-2024 Bacteria identified Cx Nom (U) Mixed Gram Pos & Gram Neg Org Abnormal [facility] Bacteria identified Cx Nom (U) Presumptive C albicans Abnormal [facility] Urine leukocyte esterase det ection by dipstickOrdered By: Donavon De La Paz on 09-04-2024 Leukocyte esterase Test strip Ql (U) 25 /ul High Negative [facility] Urine pHOrdered By: Donavon lama on 09-04-2024 pH (U) 6.0 [pH] 5.0 - 8.0 [facility] Urine sediment bacteria coun t by microscopy (number/high power field)Ordered By: Donavon De La Paz on 09-04-2024 Bacteria LM.HPF (Urine sed) [#/Area] 0 /[HPF] None Seen [facility] Urine specific gravity measu rementOrdered By: Donavon De La Paz on 09-04-2024 Specific gravity (U) [Rel density] 1.010 1.002-1.030 [facility] Urobilinogen Ql (U)Ordered B y: Donavon De La Paz on 12-30-2024 Urine Urobilinogen Normal mg/dl Normal [facility] White blood cell countOrdere d By: Donavon De La Paz on 09-04-2024 Urine WBC 0 SEEN /hpf 0-5 [facility] Basic Metabolic Profile (BMP )on 09-01-2024 BUN/CRE 34.7 RATIO High 10-20 [facility] Comment on above: Order Comment: 317.1 Performed By: #### L 501.1105, L501.6710, L501.4405, L100.0100, L101.9900, L501.8820 #### [facility] [address] [place], [address] CA,Total 9.5 mg/dL Normal 8.5-10.1 [facility] Comment on above: Order Comment: 317.1 Performed By: #### L 501.1105, L501.6710, L501.4405, L100.0100, L101.9900, L501.8820 #### [facility] [address] [place], [address] Chloride [Moles/Vol] 102 mmol/L Normal 98-107 [facility] Comment on above: Order Comment: 317.1 Performed By: #### L 501.1105, L501.6710, L501.4405, L100.0100, L101.9900, L501.8820 #### [facility] [address] [place], [address] CO2 [Moles/Vol] 29.0 mmol/L Normal 21.0-32.0 [facility] Comment on above: Order Comment: 317.1 Performed By: #### L 501.1105, L501.6710, L501.4405, L100.0100, L101.9900, L501.8820 #### [facility] [address] [place], [address] Creatinine [Mass/Vol] 1.01 mg/dL Normal 0.55-1.02 [place] Comment on above: Order Comment: 317.1 Result Comment: The validity of the calculated GFR GFRAA in patients over 70 years has not been determined. Clinical correlation is essential. Performed By: #### L 501.1105, L501.6710, L501.4405, L100.0100, L101.9900, L501.8820 #### [facility] [address] [place], [address] EST GFR - AA 71 mL/min Normal >60 [facility] Comment on above: Order Comment: 317.1 Result Comment: Afri can Dominican GFR Calc Performed By: #### L 501.1105, L501.6710, L501.4405, L100.0100, L101.9900, L501.8820 #### [facility] [address] [place], [address] GAP 5 Normal 5-15 [facility] Comment on above: Order Comment: 317.1 Performed By: #### L 501.1105, L501.6710, L501.4405, L100.0100, L101.9900, L501.8820 #### [facility] [address] [place], [address] GFR/1.73 sq M.predicted among non-blacks MDRD (S/P/Bld) [Vol rate/Area] 59 mL/min/{1.73_m2} Low >60 [facility] Comment on above: Order Comment: 317.1 Result Comment: Non- GFR Calc Performed By: #### L 501.1105, L501.6710, L501.4405, L100.0100, L101.9900, L501.8820 #### [facility] [address] [place], [address] Glucose [Mass/Vol] 170 mg/dL High 74-106 [facility] Comment on above: Order Comment: 317.1 Result Comment: Fast ing Glucose result greater than or equal to 126 mg/dL suggests DIABETES MELLITUS per A.D.A. criteria. Performed By: #### L 501.1105, L501.6710, L501.4405, L100.0100, L101.9900, L501.8820 #### [facility] [address] [place], [address] Potassium [Moles/Vol] 4.4 mmol/L Normal 3.5-5.1 [place] Comment on above: Order Comment: 317.1 Performed By: #### L 501.1105, L501.6710, L501.4405, L100.0100, L101.9900, L501.8820 #### [facility] [address] [place], [address] Sodium [Moles/Vol] 136 mmol/L Normal 136-145 [facility] Comment on above: Order Comment: 317.1 Performed By: #### L 501.1105, L501.6710, L501.4405, L100.0100, L101.9900, L501.8820 #### [facility] [address] [place], [address] Urea nitrogen [Mass/Vol] 35 mg/dL High - [facility] Comment on above: Order Comment: 317.1 Performed By: #### L 501.1105, L501.6710, L501.4405, L100.0100, L101.9900, L501.8820 #### [facility] [address] [place], [address] Blood urea nitrogen (BUN)/cr eatinine ratioOrdered By: Donavon De La Paz on 09-01-2024 Urea nitrogen/Creatinine [Mass ratio] 34.7 mg/mg High - [facility] CBC-Complete Blood Cnt No Di ffon 09-01-2024 Erythrocyte distribution width (RBC) [Ratio] 18.9 % High 11.6-14.6 [facility] Comment on above: Order Comment: 317.1 Performed By: #### L 501.1105, L501.6710, L501.4405, L100.0100, L101.9900, L501.8820 #### [facility] [address] [place], [address] Hematocrit (Bld) [Volume fraction] 29.2 % Low 37-47 [facility] Comment on above: Order Comment: 317.1 Performed By: #### L 501.1105, L501.6710, L501.4405, L100.0100, L101.9900, L501.8820 #### [facility] [address] [place], [address] Hemoglobin (Bld) [Mass/Vol] 9.1 g/dL Low 12.0-15.0 [facility] Comment on above: Order Comment: 317.1 Performed By: #### L 501.1105, L501.6710, L501.4405, L100.0100, L101.9900, L501.8820 #### [facility] [address] [place], [address] MCH (RBC) [Entitic mass] 24.8 pg Low 27.0-32.0 [facility] Comment on above: Order Comment: 317.1 Performed By: #### L 501.1105, L501.6710, L501.4405, L100.0100, L101.9900, L501.8820 #### [facility] [address] [place], [address] MCHC (RBC) [Mass/Vol] 31.2 g/dL Low 32-36 [place] Comment on above: Order Comment: 317.1 Performed By: #### L 501.1105, L501.6710, L501.4405, L100.0100, L101.9900, L501.8820 #### [facility] [address] [place], [address] MCV (RBC) [Entitic vol] 79.6 fL Low 81-99 [facility] Comment on above: Order Comment: 317.1 Performed By: #### L 501.1105, L501.6710, L501.4405, L100.0100, L101.9900, L501.8820 #### [facility] [address] [place], [address] Platelet mean volume (Bld) [Entitic vol] 9.5 fL Normal 6.2-12.0 [facility] Comment on above: Order Comment: 317.1 Performed By: #### L 501.1105, L501.6710, L501.4405, L100.0100, L101.9900, L501.8820 #### [facility] [address] [place], [address] Platelets (Bld) [#/Vol] 355 10*3/uL Normal 150-450 [facility] Comment on above: Order Comment: 317.1 Performed By: #### L 501.1105, L501.6710, L501.4405, L100.0100, L101.9900, L501.8820 #### [facility] [address] [place], [address] RBC (Bld) [#/Vol] 3.67 10*6/uL Low 4.2-5.4 [facility] Comment on above: Order Comment: 317.1 Performed By: #### L 501.1105, L501.6710, L501.4405, L100.0100, L101.9900, L501.8820 #### [facility] [address] [place], [address] RDW SD 54.3 fl High 35.1-43.9 [facility] Comment on above: Order Comment: 317.1 Performed By: #### L 501.1105, L501.6710, L501.4405, L100.0100, L101.9900, L501.8820 #### [facility] [address] [place], [place], [address] WBC (Bld) [#/Vol] 11.4 10*3/uL High 4.4-11.0 [facility] Comment on above: Order Comment: 317.1 Performed By: #### L 501.1105, L501.6710, L501.4405, L100.0100, L101.9900, L501.8820 #### [facility] [address] [place], [address] Carbon dioxide measurementOr dered By: Donavon De La Paz on 09-01-2024 CO2 [Moles/Vol] 29.0 mmol/L 21.0-32.0 [facility] Chloride measurementOrdered By: Donavon De La Paz on 09-01-2024 Chloride [Moles/Vol] 102 mmol/L 98-107 [facility] Erythrocyte distribution wid th (RBC) [Ratio]Ordered By: Donavon De La Paz on 09-01-2024 Erythrocyte distribution width (RBC) [Entitic vol] 54.3 fL High 35.1-43.9 [facility] Erythrocyte distribution wid th ratioOrdered By: Donavon De La Paz on 09-01-2024 Erythrocyte distribution width (RBC) [Ratio] 18.9 % High 11.6-14.6 [facility] Estimated glomerular filtrat ion rate (GFR) AmericanOrdered By: Donavon De La Paz on 09-01-2024 Estimated GFR (MDRD) Amer 71 mL/min >60 [facility] Comment on above: GFR Calc Glomerular filtration rate ( GFR) estimationOrdered By: Donavon De La Paz on 09-01-2024 Estimated GFR (MDRD) Non-Af Amer 59 mL/min Low >60 [facility] Comment on above: Non- GFR Calc Glucose measurementOrdered B y: Donavon De La Paz on 09-01-2024 Glucose [Mass/Vol] 170 mg/dL High 74-106 [facility] Comment on above: Fasting Glucose resu lt greater than or equal to 126 mg/dL suggests DIABETES MELLITUS per A.D.A. criteria. Hematocrit Auto (Bld) [Volum e fraction]Ordered By: Donavon De La Paz on 09-01-2024 Hematocrit (Bld) [Volume fraction] 29.2 % Low 37-47 [facility] Hemoglobin measurementOrdere d By: Donavon De La Paz on 09-01-2024 Hemoglobin (Bld) [Mass/Vol] 9.1 g/dL Low 12.0-15.0 [facility] MCV (mean corpuscular volume ) determinationOrdered By: Donavon De La Paz on 09-01-2024 MCV (RBC) [Entitic vol] 79.6 fL Low 81-99 [facility] Mean corpuscular hemoglobin (MCH) determinationOrdered By: Donavon De La Paz on 09-01-2024 MCH (RBC) [Entitic mass] 24.8 pg Low 27.0-32.0 [facility] Mean corpuscular hemoglobin concentration (MCHC) determinationOrdered By: Donavon De La Paz on 09-01-2024 MCHC (RBC) [Mass/Vol] 31.2 g/dL Low 32-36 [place] Mean platelet volume determi nationOrdered By: Donavon De La Paz on 09-01-2024 Platelet mean volume (Bld) [Entitic vol] 9.5 fL 6.2-12.0 [facility] Platelet countOrdered By: Guerra on 09-01-2024 Platelets (Bld) [#/Vol] 355 10*3/uL 150-450 [facility] Potassium measurementOrdered By: Donavon De La Paz on 09-01-2024 Potassium [Moles/Vol] 4.4 mmol/L 3.5-5.1 [place] RBC Auto (Bld) [#/Vol]Ordere d By: Donavon De La Paz on 09-01-2024 RBC (Bld) [#/Vol] 3.67 10*6/uL Low 4.2-5.4 [facility] Serum anion gap measurementO rdered By: Donavon De La Paz on 09-01-2024 Anion gap [Moles/Vol] 5 mmol/L 5-15 [place] Serum or plasma calcium gonzalez urement (mass/volume)Ordered By: Donavon De La Paz on 09-01-2024 Calcium [Mass/Vol] 9.5 mg/dL 8.5-10.1 [facility] Serum or plasma creatinine m easurement (mass/volume)Ordered By: Donavon De La Paz on 09-01-2024 Creatinine [Mass/Vol] 1.01 mg/dL 0.55-1.02 [place] Comment on above: The validity of the calculated GFR & GFRAA in patients over 70 years has not been determined. Clinical correlation is essential. Serum or plasma urea nitroge n measurement (mass/volume)Ordered By: Donavon De La Paz on 09-01-2024 Urea nitrogen [Mass/Vol] 35 mg/dL High 7-18 [facility] Sodium levelOrdered By: Donavon De La Paz on 09-01-2024 Sodium [Moles/Vol] 136 mmol/L 136-145 [facility] White blood cell (WBC) count Ordered By: Donavon De La Paz on 09-01-2024 WBC (Bld) [#/Vol] 11.4 10*3/uL High 4.4-11.0 [facility] Progress Noteon 08-28-2024 Progress Note [facility] AT [address] [id number] Discharge Notification Patient Name: Shade Brambila : 1960 Today's Date: 08/28/2024 Patient has not been seen since 06/20/24. The patient will be discharged at this time due to inactivity. The patient has not been seen for outpatient therapy in 30+ days and has not made contact to reschedule. The patient will require new referral/evaluation to resume therapy in the future. The patient will be discharged at this time. Please refer to initial evaluation or re-assessment for last goals/objective measures assessment and progress report. Thank you for this referral. For any questions on this patient?s course of therapy, please call the clinic for clarification. Hu Hawley, PT [facility] [id number] DOrdered By: Radha De La Paz on 08-25-2024 Vitamin D 25-Hydroxy 54.3 ng/mL [facility] Comment on above: Vitamin D 25(OH) Sta tus Range Deficiency <20 ng/mL (50nmol/L) Insufficiency 20 - 30 ng/mL (50 - 75 nmol/L) Sufficiency 30 - 100 ng/mL (75 - 250 nmol/L) Toxicity >100 ng/mL (>250 nmol/L) Albumin to globulin ratioOrd ered By: Donavon De La Paz on 08-25-2024 Albumin/Globulin [Mass ratio] 0.4 {ratio} Low 0.9-2.4 [facility] Bilirubin, totalOrdered By: Donavon De La Paz on 08-25-2024 Bilirubin [Mass/Vol] 0.20 mg/dL 0.20-1.00 [facility] Comment on above: For patients on eltr ombopag therapy, use of Dimension [place] TBIL is not recommended. Blood urea nitrogen (BUN)/cr eatinine ratioOrdered By: Donavon De La Paz on 08-25-2024 Urea nitrogen/Creatinine [Mass ratio] 42.9 mg/mg High 06-25 [facility] CBC-Complete Blood Cnt No Di ffon 08-25-2024 Erythrocyte distribution width (RBC) [Ratio] 18.1 % High 11.6-14.6 [facility] Comment on above: Order Comment: 310-1 Performed By: #### L 501.9985, L100.0500, L506.1000, L500.4100, L500.4050 #### [facility] [address] [place], [address] Hematocrit (Bld) [Volume fraction] 30.3 % Low 37-47 [facility] Comment on above: Order Comment: 310-1 Performed By: #### L 501.9985, L100.0500, L506.1000, L500.4100, L500.4050 #### [facility] [address] [place], [address] Hemoglobin (Bld) [Mass/Vol] 9.2 g/dL Low 12.0-15.0 [facility] Comment on above: Order Comment: 310-1 Performed By: #### L 501.9985, L100.0500, L506.1000, L500.4100, L500.4050 #### [facility] [address] [place], [address] MCH (RBC) [Entitic mass] 24.1 pg Low 27.0-32.0 [facility] Comment on above: Order Comment: 310-1 Performed By: #### L 501.9985, L100.0500, L506.1000, L500.4100, L500.4050 #### [facility] [address] [place], [address] MCHC (RBC) [Mass/Vol] 30.4 g/dL Low 32-36 [place] Comment on above: Order Comment: 310-1 Performed By: #### L 501.9985, L100.0500, L506.1000, L500.4100, L500.4050 #### [facility] [address] [place], [address] MCV (RBC) [Entitic vol] 79.3 fL Low 81-99 [facility] Comment on above: Order Comment: 310-1 Performed By: #### L 501.9985, L100.0500, L506.1000, L500.4100, L500.4050 #### [facility] [address] [place], [address] Platelet mean volume (Bld) [Entitic vol] 9.8 fL Normal 6.2-12.0 [facility] Comment on above: Order Comment: 310-1 Performed By: #### L 501.9985, L100.0500, L506.1000, L500.4100, L500.4050 #### [facility] [address] [place], [address] Platelets (Bld) [#/Vol] 325 10*3/uL Normal 150-450 [facility] Comment on above: Order Comment: 310-1 Performed By: #### L 501.9985, L100.0500, L506.1000, L500.4100, L500.4050 #### [facility] [address] [place], [address] RBC (Bld) [#/Vol] 3.82 10*6/uL Low 4.2-5.4 [facility] Comment on above: Order Comment: 310-1 Performed By: #### L 501.9985, L100.0500, L506.1000, L500.4100, L500.4050 #### [facility] [address] [place], [address] RDW SD 51.0 fl High 35.1-43.9 [facility] Comment on above: Order Comment: 310-1 Performed By: #### L 501.9985, L100.0500, L506.1000, L500.4100, L500.4050 #### [facility] [address] [place], [address] WBC (Bld) [#/Vol] 10.2 10*3/uL Normal 4.4-11.0 [facility] Comment on above: Order Comment: 310-1 Performed By: #### L 501.9985, L100.0500, L506.1000, L500.4100, L500.4050 #### [facility] [address] [place], [address] Carbon dioxide measurementOr dered By: Donavon De La Paz on 08-25-2024 CO2 [Moles/Vol] 24.0 mmol/L 21.0-32.0 [facility] Chloride measurementOrdered By: Donavon De La Paz on 08-25-2024 Chloride [Moles/Vol] 108 mmol/L High 98-107 [facility] Comprehensive Metabolic Prof ilon 08-25-2024 Albumin [Mass/Vol] 2.1 g/dL Low 3.2-5.0 [facility] Comment on above: Order Comment: 310-1 Performed By: #### L 501.9985, L100.0500, L506.1000, L500.4100, L500.4050 #### [facility] [address] [place], [address] Albumin/Globulin [Mass ratio] 0.4 {ratio} Low 0.9-2.4 [facility] Comment on above: Order Comment: 310-1 Performed By: #### L [id number], L100.0500, L506.1000, L500.4100, L500.4050 #### [facility] [address] [place], [address] ALK P 171 U/L High 45-117 [facility] Comment on above: Order Comment: 310-1 Performed By: #### L 501.9985, L100.0500, L506.1000, L500.4100, L500.4050 #### [facility] [address] [place], [address] ALT [Catalytic activity/Vol] 15 U/L Normal 13-56 [facility] Comment on above: Order Comment: 310-1 Performed By: #### L 501.9985, L100.0500, L506.1000, L500.4100, L500.4050 #### [facility] [address] [place], [address] AST [Catalytic activity/Vol] 23 U/L Normal 15-37 [facility] Comment on above: Order Comment: 310-1 Performed By: #### L 501.9985, L100.0500, L506.1000, L500.4100, L500.4050 #### [facility] [address] [place], [address] Bilirubin [Mass/Vol] 0.20 mg/dL Normal 0.20-1.00 [facility] Comment on above: Order Comment: 310-1 Result Comment: For patients on eltrombopag therapy, use of Dimension [place] TBIL is not recommended. Performed By: #### L 501.9985, L100.0500, L506.1000, L500.4100, L500.4050 #### [facility] [address] [place], [address] BUN/CRE 42.9 RATIO High 10-20 [facility] Comment on above: Order Comment: 310-1 Performed By: #### L 501.9985, L100.0500, L506.1000, L500.4100, L500.4050 #### [facility] [address] [place], [address] CA,Total 9.1 mg/dL Normal 8.5-10.1 [facility] Comment on above: Order Comment: 310-1 Performed By: #### L 501.9985, L100.0500, L506.1000, L500.4100, L500.4050 #### [facility] [address] [place], [address] Chloride [Moles/Vol] 108 mmol/L High 98-107 [facility] Comment on above: Order Comment: 310-1 Performed By: #### L 501.9985, L100.0500, L506.1000, L500.4100, L500.4050 #### [facility] [address] [place], [address] CO2 [Moles/Vol] 24.0 mmol/L Normal 21.0-32.0 [facility] Comment on above: Order Comment: 310-1 Performed By: #### L 501.9985, L100.0500, L506.1000, L500.4100, L500.4050 #### [facility] [address] [place], [address] Creatinine [Mass/Vol] 0.82 mg/dL Normal 0.55-1.02 [place] Comment on above: Order Comment: 310-1 Result Comment: The validity of the calculated GFR GFRAA in patients over 70 years has not been determined. Clinical correlation is essential. Performed By: #### L 501.9985, L100.0500, L506.1000, L500.4100, L500.4050 #### [facility] [address] [place], [address] EST GFR - AA 91 mL/min Normal >60 [facility] Comment on above: Order Comment: 310-1 Result Comment: Afri can Dominican GFR Calc Performed By: #### L 501.9985, L100.0500, L506.1000, L500.4100, L500.4050 #### [facility] [address] [place], [address] GAP 4 Low 5-15 [facility] Comment on above: Order Comment: 310-1 Performed By: #### L 501.9985, L100.0500, L506.1000, L500.4100, L500.4050 #### [facility] [address] [place], [address] GFR/1.73 sq M.predicted among non-blacks MDRD (S/P/Bld) [Vol rate/Area] 75 mL/min/{1.73_m2} Normal >60 [facility] Comment on above: Order Comment: 310-1 Result Comment: Non- GFR Calc Performed By: #### L 501.9985, L100.0500, L506.1000, L500.4100, L500.4050 #### [facility] [address] [place], [address] Globulin (S) [Mass/Vol] 4.9 g/dL High 2.2-4.2 [facility] Comment on above: Order Comment: 310-1 Performed By: #### L 501.9985, L100.0500, L506.1000, L500.4100, L500.4050 #### [facility] [address] [place], [address] Glucose [Mass/Vol] 143 mg/dL High 74-106 [facility] Comment on above: Order Comment: 310-1 Result Comment: Fast ing Glucose result greater than or equal to 126 mg/dL suggests DIABETES MELLITUS per A.D.A. criteria. Performed By: #### L 501.9985, L100.0500, L506.1000, L500.4100, L500.4050 #### [facility] [address] [place], [address] Potassium [Moles/Vol] 4.4 mmol/L Normal 3.5-5.1 [place] Comment on above: Order Comment: 310-1 Performed By: #### L 501.9985, L100.0500, L506.1000, L500.4100, L500.4050 #### [facility] [address] [place], [address] Sodium [Moles/Vol] 136 mmol/L Normal 136-145 [facility] Comment on above: Order Comment: 310-1 Performed By: #### L 501.9985, L100.0500, L506.1000, L500.4100, L500.4050 #### [facility] [address] [place], [address] T PROT 7.0 g/dL Normal 6.4-8.2 [facility] Comment on above: Order Comment: 310-1 Performed By: #### L 501.9985, L100.0500, L506.1000, L500.4100, L500.4050 #### [facility] [address] [place], [address] Urea nitrogen [Mass/Vol] 35 mg/dL High 7-18 [facility] Comment on above: Order Comment: 310-1 Performed By: #### L 501.9985, L100.0500, L506.1000, L500.4100, L500.4050 #### [facility] [address] [place], [address] Erythrocyte distribution wid th (RBC) [Ratio]Ordered By: Donavon De La Paz on 08-25-2024 Erythrocyte distribution width (RBC) [Entitic vol] 51.0 fL High 35.1-43.9 [facility] Erythrocyte distribution wid th ratioOrdered By: Donavon De La Paz on 08-25-2024 Erythrocyte distribution width (RBC) [Ratio] 18.1 % High 11.6-14.6 [facility] Estimated glomerular filtrat ion rate (GFR) AmericanOrdered By: Donavon De La Paz on 08-25-2024 Estimated GFR (MDRD) Amer 91 mL/min >60 [facility] Comment on above: GFR Calc Glomerular filtration rate ( GFR) estimationOrdered By: Donavon De La Paz on 08-25-2024 Estimated GFR (MDRD) Non-Af Amer 75 mL/min >60 [facility] Comment on above: Non- GFR Calc Glucose measurementOrdered B y: Donavon De La Paz on 08-25-2024 Glucose [Mass/Vol] 143 mg/dL High 74-106 [facility] Comment on above: Fasting Glucose resu lt greater than or equal to 126 mg/dL suggests DIABETES MELLITUS per A.D.A. criteria. Hematocrit Auto (Bld) [Volum e fraction]Ordered By: Donavon De La Paz on 08-25-2024 Hematocrit (Bld) [Volume fraction] 30.3 % Low 37-47 [facility] Hemoglobin A1con 08-25-2024 HbA1c (Bld) [Mass fraction] 8.2 % High 3.8-5.6 [facility] Comment on above: Order Comment: 317.1 Result Comment: Norm al < 5.7 % Prediabetic 5.7 - 6.4 % Diabetic >or= 6.5 % Please note range changes. Performed By: #### L 501.1105, L501.6710, L501.4405, L100.0100, L101.9900, L501.8820 #### [facility] [address] [place], [address] Hemoglobin A1c percentageOrd ered By: Donavon De La Paz on 08-25-2024 HbA1c (Bld) [Mass fraction] 8.2 % High 3.8-5.6 [facility] Comment on above: Normal < 5.7 % Predi abetic 5.7 - 6.4 % Diabetic >or= 6.5 % Please note range changes. Hemoglobin measurementOrdere d By: Donavon De La Paz on 08-25-2024 Hemoglobin (Bld) [Mass/Vol] 9.2 g/dL Low 12.0-15.0 [facility] High density lipoprotein (HD L) measurementOrdered By: Donavon De La Paz on 08-25-2024 Cholesterol in HDL [Mass/Vol] 34 mg/dL Low >40 [facility] Comment on above: The drugs N-Acetylcy steine and Metamizole may falsely depress this assay. Reference Range HDL <40 mg/dL Low HDL Cholesterol HDL >or= 60 mg/dL High HDL Cholesterol Laboratory - Chemistry and C hemistry - challengeOrdered By: Donavon De La Paz on 08-25-2024 AST [Catalytic activity/Vol] 23 U/L 15-37 [facility] Lipid Profileon 08-25-2024 Cholesterol [Mass/Vol] 74 mg/dL Normal 200 [facility] Comment on above: Order Comment: 310-1 Result Comment: <200 mg/dL Desirable 200-240 mg/dL Borderline >240 mg/dL High Risk Performed By: #### L 501.9985, L100.0500, L506.1000, L500.4100, L500.4050 #### [facility] [address] [place], [place], [address] Cholesterol in HDL [Mass/Vol] 34 mg/dL Low [facility] Comment on above: Order Comment: 310-1 Result Comment: The drugs N-Acetylcysteine and Metamizole may falsely depress this assay. Reference Range HDL <40 mg/dL Low HDL Cholesterol HDL >or= 60 mg/dL High HDL Cholesterol Performed By: #### L 501.9985, L100.0500, L506.1000, L500.4100, L500.4050 #### [facility] [address] [place], [address] Cholesterol in LDL [Mass/Vol] 19 mg/dL Normal 0-130 [facility] Comment on above: Order Comment: 310-1 Performed By: #### L 501.9985, L100.0500, L506.1000, L500.4100, L500.4050 #### [facility] [address] [place], [address] Cholesterol in VLDL [Mass/Vol] 21 mg/dL Normal 5-40 [facility] Comment on above: Order Comment: 310-1 Performed By: #### L 501.9985, L100.0500, L506.1000, L500.4100, L500.4050 #### [facility] [address] [place], [address] Triglyceride [Mass/Vol] 105 mg/dL Normal [facility] Comment on above: Order Comment: 310-1 Result Comment: The drugs N-Acetylcysteine and Metamizole may falsely depress this assay. Serum Triglycerides Reference Interval Normal <150 mg/dL Borderline high 150 - 199 mg/dL High 200 - 499 mg/dL Very High > or = 500 mg/dL Performed By: #### L 501.9985, L100.0500, L506.1000, L500.4100, L500.4050 #### [facility] [address] [place], [place], [id number] [phone] Low density lipoprotein (LDL ) cholesterol measurementOrdered By: Donavon De La Paz on 08-25-2024 Cholesterol in LDL [Mass/Vol] 19 mg/dL 0-130 [facility] MCV (mean corpuscular volume ) determinationOrdered By: Donavon De La Paz on 08-25-2024 MCV (RBC) [Entitic vol] 79.3 fL Low 81-99 [facility] Mean corpuscular hemoglobin (MCH) determinationOrdered By: Donavon De La Paz on 08-25-2024 MCH (RBC) [Entitic mass] 24.1 pg Low 27.0-32.0 [facility] Mean corpuscular hemoglobin concentration (MCHC) determinationOrdered By: Donavon De La Paz on 08-25-2024 MCHC (RBC) [Mass/Vol] 30.4 g/dL Low 32-36 [place] Mean platelet volume determi nationOrdered By: Donavon De La Paz on 08-25-2024 Platelet mean volume (Bld) [Entitic vol] 9.8 fL 6.2-12.0 [facility] Platelet countOrdered By: Guerra on 08-25-2024 Platelets (Bld) [#/Vol] 325 10*3/uL 150-450 [facility] Potassium measurementOrdered By: Donavon De La Paz on 08-25-2024 Potassium [Moles/Vol] 4.4 mmol/L 3.5-5.1 [place] RBC Auto (Bld) [#/Vol]Ordere d By: Donavon De La Paz on 08-25-2024 RBC (Bld) [#/Vol] 3.82 10*6/uL Low 4.2-5.4 [facility] Serum anion gap measurementO rdered By: Donavon De La Paz on 08-25-2024 Anion gap [Moles/Vol] 4 mmol/L Low 5-15 [place] Serum globulin measurementOr dered By: Donavon De La Paz on 08-25-2024 Globulin (S) [Mass/Vol] 4.9 g/dL High 2.2-4.2 [facility] Serum or plasma alanine gasca otransferase (ALT) measurementOrdered By: Donavon De La Paz on 08-25-2024 ALT [Catalytic activity/Vol] 15 U/L 13-56 [facility] Serum or plasma albumin gonzalez urement (mass/volume)Ordered By: Donavon De La Paz on 08-25-2024 Albumin [Mass/Vol] 2.1 g/dL Low 3.2-5.0 [facility] Serum or plasma alkaline meghann sphatase measurementOrdered By: Donavon De La Paz on 08-25-2024 ALP [Catalytic activity/Vol] 171 U/L High 45-117 [facility] Serum or plasma calcium gonzalez urement (mass/volume)Ordered By: Donavon De La Paz on 08-25-2024 Calcium [Mass/Vol] 9.1 mg/dL 8.5-10.1 [facility] Serum or plasma cholesterol measurement (mass/volume)Ordered By: Donavon De La Paz on 08-25-2024 Cholesterol [Mass/Vol] 74 mg/dL <200 [facility] Comment on above: <200 mg/dL Desirable 200-240 mg/dL Borderline >240 mg/dL High Risk Serum or plasma creatinine m easurement (mass/volume)Ordered By: Donavon De La Paz on 08-25-2024 Creatinine [Mass/Vol] 0.82 mg/dL 0.55-1.02 [place] Comment on above: The validity of the calculated GFR & GFRAA in patients over 70 years has not been determined. Clinical correlation is essential. Serum or plasma urea nitroge n measurement (mass/volume)Ordered By: Donavon De La Paz on 08-25-2024 Urea nitrogen [Mass/Vol] 35 mg/dL High 7-18 [facility] Sodium levelOrdered By: Donavon De La Paz on 08-25-2024 Sodium [Moles/Vol] 136 mmol/L 136-145 [facility] Total proteinOrdered By: Selene De La Paz on 08-25-2024 Protein [Mass/Vol] 7.0 g/dL 6.4-8.2 [facility] Triglycerides measurementOrd ered By: Donavon De La Paz on 08-25-2024 Triglyceride [Mass/Vol] 105 mg/dL <199 [facility] Comment on above: The drugs N-Acetylcy steine and Metamizole may falsely depress this assay.Serum Triglycerides Reference Interval Normal <150 mg/dL Borderline high 150 - 199 mg/dL High 200 - 499 mg/dL Very High > or = 500 mg/dL Very low density lipoprotein (VLDL) cholesterol measurementOrdered By: Donavon De La Paz on 08-25-2024 VLDL Cholesterol 21 mg/dL 5-40 [facility] Vitamin D,25 Hydroxyon 08-25 Vitamin D 25-OH 54.3 ng/mL Normal [facility] Comment on above: Order Comment: 310-1 Result Comment: Marva min D 25(OH) Status Range Deficiency <20 ng/mL (50nmol/L) Insufficiency 20 - 30 ng/mL (50 - 75 nmol/L) Sufficiency 30 - 100 ng/mL (75 - 250 nmol/L) Toxicity >100 ng/mL (>250 nmol/L) Performed By: #### L 501.9985, L100.0500, L506.1000, L500.4100, L500.4050 #### [facility] [address] [place], [address] White blood cell (WBC) count Ordered By: Donavon De La Paz on 08-25-2024 WBC (Bld) [#/Vol] 10.2 10*3/uL 4.4-11.0 [facility] CASE MANAGEMon 08-24-2024 CASE MANAGEM [facility] CASE MANAGEM [facility] CNDSon 08-24-2024 CNDS [facility] CONSULT PROGon 08-24-2024 CONSULT PROG [facility] CASE MANAGEMon 08-23-2024 CASE MANAGEM [facility] CONSULT PROGon 08-23-2024 CONSULT PROG [facility] THERAPY NTon 08-23-2024 THERAPY NT [facility] CASE MANAGEMon 08-22-2024 CASE MANAGEM [facility] CONSULT PROGon 08-22-2024 CONSULT PROG [facility] NURSING PROGon 08-22-2024 NURSING PROG [facility] THERAPY NTon 08-22-2024 THERAPY NT [facility] THERAPY NT [facility] THERAPY NT [facility] CASE MANAGEMon 08-21-2024 CASE MANAGEM [facility] CASE MANAGEM [facility] CONSULT PROGon 08-21-2024 CONSULT PROG [facility] CONSULT PROG [facility] ECG COMPLETEon 08-21-2024 ECG COMPLETE [facility] Auto (Bld)on 08-20 Erythrocyte distribution width (RBC) [Ratio] 17.2 % High 11.5-15.0 [facility] Comment on above: Order Comment: Speci men Type: BLOOD SPECIMENOrdering Facility: [facility] Address: [address] [place] [address] [place] [address] Performed By: #### 5 8410-2 ####[facility]ORYCLIA [id number] [address] [place] Hematocrit (Bld) [Volume fraction] 29.4 % Low 36.0-46.0 [facility] Comment on above: Order Comment: Speci men Type: BLOOD SPECIMENOrdering Facility: [facility] Address: [address] [place] [address] Performed By: #### 5 8410-2 ####[facility] LABORATORYCLIA [id number] [place] [address] [place] Hemoglobin (Bld) [Mass/Vol] 9.1 g/dL Low 11.5-15.5 [facility] Comment on above: Order Comment: Speci men Type: BLOOD SPECIMENOrdering Facility: [facility] Address: [address] [place] [address] Performed By: #### 5 8410-2 ####[facility] LABORATORYCLIA [id number] [address] [place] MCH (RBC) [Entitic mass] 24.5 pg Low 26.0-34.0 [facility] Comment on above: Order Comment: Speci men Type: BLOOD SPECIMENOrdering Facility: [facility] Address: [address] [place] [address] Performed By: #### 5 8410-2 ####[facility] LABORATORYCLIA [id number] [address] [place] MCHC (RBC) [Mass/Vol] 31.0 g/dL Normal 30.5-36.0 [facility] Comment on above: Order Comment: Speci men Type: BLOOD SPECIMENOrdering Facility: [facility] Address: [address] [place] [address] Performed By: #### 5 8410-2 ####[facility] LABORATORYCLIA [id number] [address] [place] MCV (RBC) [Entitic vol] 79.2 fL Low 80.0-100.[address] [facility] Comment on above: Order Comment: Speci men Type: BLOOD SPECIMENOrdering Facility: [facility] Address: [address] [place] [address] Performed By: #### 5 8410-2 ####[facility] LABORATORYCLIA [id number] [place] [address] [place] Nucleated RBC (Bld) [#/Vol] 10*3/uL Normal <0.01 [facility] Comment on above: Order Comment: Speci men Type: BLOOD SPECIMENOrdering Facility: [facility] Address: [address] [place] [address] Performed By: #### 5 8410-2 ####[facility] LABORATORYCLIA [id number] [place] [address] [place] Platelet mean volume (Bld) [Entitic vol] 9.5 fL Normal 9.0-12.7 [facility] Comment on above: Order Comment: Speci men Type: BLOOD SPECIMENOrdering Facility: [facility] Address: [address] [place] [address] Performed By: #### 5 8410-2 ####[facility] LABORATORYCLIA [id number] [address] [place] Platelets (Bld) [#/Vol] 213 10*3/uL Normal 150-400 [facility] Comment on above: Order Comment: Speci men Type: BLOOD SPECIMENOrdering Facility: [facility] Address: [address] [place] [address] Performed By: #### 5 8410-2 ####[facility] LABORATORYCLIA [id number] [address] [place] RBC (Bld) [#/Vol] 3.71 10*6/uL Low 3.90-5.20 [facility] Comment on above: Order Comment: Speci men Type: BLOOD SPECIMENOrdering Facility: [facility] Address: [address] [place] [address] Performed By: #### 5 8410-2 ####[facility] LABORATORYCLIA [id number] [address] [place] WBC (Bld) [#/Vol] 8.39 10*3/uL Normal 3.70-11.00 [facility] Comment on above: Order Comment: Speci men Type: BLOOD SPECIMENOrdering Facility: [facility] Address: [address] [place] [address] Performed By: #### 5 8410-2 ####[facility] LABORATORYCLIA [id number] [place] [address] [place] CONSULT PROGon 08-20-2024 CONSULT PROG Normal [facility] Comprehensive metabolic 2000 panelon 08-20-2024 Albumin [Mass/Vol] 2.7 g/dL Low 3.9-4.9 [facility] Comment on above: Order Comment: Speci men Type: BLOOD SPECIMENOrdering Facility: [facility] Address: [address] [place] [address] Performed By: #### 2 4323-8 ####[facility] LABORATORYCLIA [id number] [place] [address] [place] ALP [Catalytic activity/Vol] 137 U/L High 34-123 [facility] Comment on above: Order Comment: Speci men Type: BLOOD SPECIMENOrdering Facility: [facility] Address: [address] [place] [address] Performed By: #### 2 4323-8 ####[facility] LABORATORYCLIA [id number] [address] [place] ALT [Catalytic activity/Vol] 11 U/L Normal 7-38 [facility] Comment on above: Order Comment: Speci men Type: BLOOD SPECIMENOrdering Facility: [facility] Address: [address] [place] [address] Performed By: #### 2 4323-8 ####[facility] LABORATORYCLIA [id number] [place] [address] [place] Anion gap [Moles/Vol] 9 mmol/L Normal 8-15 [facility] Comment on above: Order Comment: Speci men Type: BLOOD SPECIMENOrdering Facility: [facility] Address: [facility] [place] [address] Performed By: #### 2 4323-8 ####[facility] LABORATORYCLIA [id number] [place] [address] [place] AST [Catalytic activity/Vol] 15 U/L Normal 13-35 [facility] Comment on above: Order Comment: Speci men Type: BLOOD SPECIMENOrdering Facility: [facility] Address: [address] [place] [address] Performed By: #### 2 4323-8 ####[facility] LABORATORYCLIA [id number] [place] [address] [place] Bilirubin [Mass/Vol] 0.2 mg/dL Normal 0.2-1.3 [facility] Comment on above: Order Comment: Speci men Type: BLOOD SPECIMENOrdering Facility: [facility] Address: [address] [place] [address] Performed By: #### 2 4323-8 ####[facility] LABORATORYCLIA [id number] [place] [address] [place] Calcium [Mass/Vol] 9.1 mg/dL Normal 8.5-10.2 [facility] Comment on above: Order Comment: Speci men Type: BLOOD SPECIMENOrdering Facility: [facility] Address: [address] [place] [address] Performed By: #### 2 4323-8 ####R[facility] LABORATORYCLIA [id number] [place] [address] [place] Chloride [Moles/Vol] 102 mmol/L Normal 98-107 [facility] Comment on above: Order Comment: Speci men Type: BLOOD SPECIMENOrdering Facility: [facility] Address: [address] [place] [address] Performed By: #### 2 4323-8 ####[facility] LABORATORYCLIA [id number] [place] [address] [place] CO2 [Moles/Vol] 23 mmol/L Normal 22-30 [facility] Comment on above: Order Comment: Speci men Type: BLOOD SPECIMENOrdering Facility: [facility] Address: [address] [place] [address] Performed By: #### 2 4323-8 ####[facility] LABORATORYCLIA [id number] [place] [address] [place] Creatinine [Mass/Vol] 0.66 mg/dL Normal 0.58-0.96 [facility] Comment on above: Order Comment: Speci men Type: BLOOD SPECIMENOrdering Facility: [facility] Address: [address] [place] [address] Performed By: #### 2 4323-8 ####[facility] LABORATORYCLIA [id number] [address] Creatinine and Glomerular filtration rate.predicted panel (S/P/Bld) 98 mL/min/1.73m??? Normal >=60 [facility] Comment on above: Order Comment: Lisbet ojeda Type: BLOOD SPECIMENOrdering Facility: [facility] Address: [address] [place] [address] Result Comment: Anuj mated Glomerular Filtration Rate (eGFR) is calculated using the 2020 CKD-EPI creatinine equation. This equation utilizes serum creatinine, sex, and age as parameters. The creatinine assay has traceable calibration to isotope dilution-mass spectrometry. Refer to KDIGO guidelines for clinical interpretation. In patients with unstable renal function, e.g. those with acute kidney injury, the eGFR may not accurately reflect actual GFR. Performed By: #### 2 4323-8 ####[facility] LABORATORYCLIA [id number] [address] [place] Glucose [Mass/Vol] 127 mg/dL High 74-99 [facility] Comment on above: Order Comment: Lisbet lynette Type: BLOOD SPECIMENOrdering Facility: [facility] Address: [address] [place] [address] Result Comment: The [place] [employer] (ADA) provides guidance for cutoff values for fasting glucose and random glucose. The ADA defines fasting as no caloric intake for at least 8 hours. Fasting plasma glucose results between 100 to 125 mg/dL indicate increased risk for diabetes (prediabetes).Fasting plasma glucose results greater than or equal to 126 mg/dL meet the criteria for diagnosis of diabetes. In the absence of unequivocal hyperglycemia, results should be confirmed by repeat testing. In a patient with classic symptoms of hyperglycemia or hyperglycemic crisis, random plasma glucose results greater than or equal to 200 mg/dL meet the criteria for diagnosis of diabetes.Reference: Standards of Medical Care in Diabetes 2016, [place] [employer]. Diabetes Care. 2016.39(Suppl 1). Performed By: #### 2 4323-8 ####[facility] LABORATORYCLIA [id number] [place] [address] [place] Potassium [Moles/Vol] 5.1 mmol/L Normal 3.7-5.1 [facility] Comment on above: Order Comment: Speci men Type: BLOOD SPECIMENOrdering Facility: [facility] Address: [address] [place] [address] Performed By: #### 2 4323-8 ####R[facility] LABORATORYCLIA [id number] [place], [place] [address] [place] Protein [Mass/Vol] 6.7 g/dL Normal 6.3-8.0 [facility] Comment on above: Order Comment: Speci men Type: BLOOD SPECIMENOrdering Facility: [facility] Address: [address] [place] [address] Performed By: #### 2 4323-8 ####RODRIGUEZ LABORATORYCLIA [id number] [place] [address] [place] Sodium [Moles/Vol] 134 mmol/L Low 136-144 [facility] Comment on above: Order Comment: Speci men Type: BLOOD SPECIMENOrdering Facility: [facility] Address: [address] [place] [address] Performed By: #### 2 4323-8 ####RODRIGUEZ LABORATORYCLIA [id number] [place] [address] [place] Urea nitrogen [Mass/Vol] 24 mg/dL High 7-21 [facility] Comment on above: Order Comment: Speci men Type: BLOOD SPECIMENOrdering Facility: [facility] Address: [address] [place] [address] Performed By: #### 2 4323-8 ####RODRIGUEZ LABORATORYCLIA [id number] [place] [address] [place] THERAPY NTon 08-20-2024 THERAPY NT Normal [facility] THERAPY NT Normal [facility] CBC panel Auto (Bld)on 08-19 Erythrocyte distribution width (RBC) [Ratio] 17.4 % High 11.5-15.0 [facility] Comment on above: Order Comment: Speci men Type: BLOOD SPECIMENOrdering Facility: [facility] Address: [address] [place], [place] [address] Performed By: #### 5 8410-2 ####RODRIGUEZ LABORATORYCLIA [id number] [address] Hematocrit (Bld) [Volume fraction] 29.6 % Low 36.0-46.0 [facility] Comment on above: Order Comment: Speci men Type: BLOOD SPECIMENOrdering Facility: [facility] Address: [address] [place] [address] Performed By: #### 5 8410-2 ####RODRIGUEZ LABORATORYCLIA [id number] [address] Hemoglobin (Bld) [Mass/Vol] 9.0 g/dL Low 11.5-15.5 [facility] Comment on above: Order Comment: Speci men Type: BLOOD SPECIMENOrdering Facility: [facility] Address: [address] [place] [address] Performed By: #### 5 8410-2 ####RODRIGUEZ LABORATORYCLIA [id number] [address] MCH (RBC) [Entitic mass] 24.5 pg Low 26.0-34.0 [facility] Comment on above: Order Comment: Speci men Type: BLOOD SPECIMENOrdering Facility: [facility] Address: [address] [place] [address] Performed By: #### 5 8410-2 ####RODRIGUEZ LABORATORYCLIA [id number] [address] MCHC (RBC) [Mass/Vol] 30.4 g/dL Low 30.5-36.0 [facility] Comment on above: Order Comment: Speci men Type: BLOOD SPECIMENOrdering Facility: [facility] Address: [address] [place] [address] Performed By: #### 5 8410-2 ####RODRIGUEZ LABORATORYCLIA [id number] [address] MCV (RBC) [Entitic vol] 80.7 fL Normal 80.0-100.[address] [facility] Comment on above: Order Comment: Speci men Type: BLOOD SPECIMENOrdering Facility: [facility] Address: [address] [place] [address] Performed By: #### 5 8410-2 ####RODRIGUEZ LABORATORYCLIA [id number] [place] [address] [place] Nucleated RBC (Bld) [#/Vol] 10*3/uL Normal <0.01 [facility] Comment on above: Order Comment: Speci men Type: BLOOD SPECIMENOrdering Facility: [facility] Address: [address] [place] [address] Performed By: #### 5 8410-2 ####RODRIGUEZ LABORATORYCLIA [id number] [place] [address] [place] Platelet mean volume (Bld) [Entitic vol] 9.3 fL Normal 9.0-12.7 [facility] Comment on above: Order Comment: Speci men Type: BLOOD SPECIMENOrdering Facility: [facility] Address: [address] [place] [address] Performed By: #### 5 8410-2 ####RODRIGUEZ LABORATORYCLIA [id number] [address] [place] Platelets (Bld) [#/Vol] 215 10*3/uL Normal 150-400 [facility] Comment on above: Order Comment: Speci men Type: BLOOD SPECIMENOrdering Facility: [facility] Address: [address] [place] [address] Performed By: #### 5 8410-2 ####RODRIGUEZ LABORATORYCLIA [id number] [place] [address] [place] RBC (Bld) [#/Vol] 3.67 10*6/uL Low 3.90-5.20 [facility] Comment on above: Order Comment: Speci men Type: BLOOD SPECIMENOrdering Facility: [facility] Address: [address] [place] [address] Performed By: #### 5 8410-2 ####RODRIGUEZ LABORATORYCLIA [id number] [place] [address] [place] WBC (Bld) [#/Vol] 9.17 10*3/uL Normal 3.70-11.00 [facility] Comment on above: Order Comment: Speci men Type: BLOOD SPECIMENOrdering Facility: [facility] Address: [address] [place] [address] [place] [address] Performed By: #### 5 8410-2 ####RODRIGUEZ LABORATORYCLIA [id number] [place] [address] [facility] [place] CONSULT PROGon 08-19-2024 CONSULT PROG Normal [facility] CONSULT PROG Normal [facility] Comprehensive metabolic 2000 panelon 08-19-2024 Albumin [Mass/Vol] 2.6 g/dL Low 3.9-4.9 [facility] Comment on above: Order Comment: Speci men Type: BLOOD SPECIMENOrdering Facility: [facility] Address: [address] [place] [address] Performed By: #### 2 4323-8 ####RODRIGUEZ LABORATORYCLIA [id number] [place] [address] [place] ALP [Catalytic activity/Vol] 161 U/L High 34-123 [facility] Comment on above: Order Comment: Speci men Type: BLOOD SPECIMENOrdering Facility: [facility] Address: [address] [place], [place] [address] [address] Performed By: #### 2 4323-8 ####RODRIGUEZ LABORATORYCLIA [id number] [place] [address] [place] ALT [Catalytic activity/Vol] 12 U/L Normal 7-38 [facility] Comment on above: Order Comment: Speci men Type: BLOOD SPECIMENOrdering Facility: [facility] Address: [address] [place] [address] Performed By: #### 2 4323-8 ####RODRIGUEZ LABORATORYCLIA [id number] [place] [address] [place] Anion gap [Moles/Vol] 11 mmol/L Normal 8-15 [facility] Comment on above: Order Comment: Speci men Type: BLOOD SPECIMENOrdering Facility: [facility] Address: [address] [place] [address] Performed By: #### 2 4323-8 ####RODRIGUEZ LABORATORYCLIA [id number] [place] [address] [place] AST [Catalytic activity/Vol] 18 U/L Normal 13-35 [facility] Comment on above: Order Comment: Speci men Type: BLOOD SPECIMENOrdering Facility: [facility] Address: [address] [place] [address] Performed By: #### 2 4323-8 ####RODRIGUEZ LABORATORYCLIA [id number] [place] [address] [place] Bilirubin [Mass/Vol] 0.3 mg/dL Normal 0.2-1.3 [facility] Comment on above: Order Comment: Speci men Type: BLOOD SPECIMENOrdering Facility: [facility] Address: [address] [place] [address] Performed By: #### 2 4323-8 ####RODRIGUEZ LABORATORYCLIA [id number] [place] [address] [place] Calcium [Mass/Vol] 9.1 mg/dL Normal 8.5-10.2 [facility] Comment on above: Order Comment: Speci men Type: BLOOD SPECIMENOrdering Facility: [facility] Address: [address] [place] [address] Performed By: #### 2 4323-8 ####RODRIGUEZ LABORATORYCLIA [id number] [place] [address] [place] Chloride [Moles/Vol] 101 mmol/L Normal 98-107 [facility] Comment on above: Order Comment: Speci men Type: BLOOD SPECIMENOrdering Facility: [facility] Address: [address] [place] [address] Performed By: #### 2 4323-8 ####RODRIGUEZ LABORATORYCLIA [id number] [place] [address] [place] CO2 [Moles/Vol] 23 mmol/L Normal 22-30 [facility] Comment on above: Order Comment: Speci men Type: BLOOD SPECIMENOrdering Facility: [facility] Address: [address] [place] [address] Performed By: #### 2 4323-8 ####RODRIGUEZ LABORATORYCLIA [id number] [place] [address] [place] Creatinine [Mass/Vol] 0.76 mg/dL Normal 0.58-0.96 [facility] Comment on above: Order Comment: Yolettejohanne ojeda Type: BLOOD SPECIMENOrdering Facility: [facility] Address: [address] [place] [address] Performed By: #### 2 4323-8 ####RODRIGUEZ LABORATORYCLIA [id number] [place] [address] [facility] Creatinine and Glomerular filtration rate.predicted panel (S/P/Bld) 88 mL/min/1.73m??? Normal >=60 [facility] Comment on above: Order Comment: Lisbet lynette Type: BLOOD SPECIMENOrdering Facility: [facility] Address: [address] [place] [address] Result Comment: Anuj mated Glomerular Filtration Rate (eGFR) is calculated using the 2020 CKD-EPI creatinine equation. This equation utilizes serum creatinine, sex, and age as parameters. The creatinine assay has traceable calibration to isotope dilution-mass spectrometry. Refer to KDIGO guidelines for clinical interpretation. In patients with unstable renal function, e.g. those with acute kidney injury, the eGFR may not accurately reflect actual GFR. Performed By: #### 2 4323-8 ####RODRIGUEZ LABORATORYCLIA [id number] [place] [id number] [place] Glucose [Mass/Vol] 134 mg/dL High 74-99 [facility] Comment on above: Order Comment: Lisbet ojeda Type: BLOOD SPECIMENOrdering Facility: [facility] Address: [address] [place] [address] Result Comment: The [place] Diabetes [employer] (ADA) provides guidance for cutoff values for fasting glucose and random glucose. The ADA defines fasting as no caloric intake for at least 8 hours. Fasting plasma glucose results between 100 to 125 mg/dL indicate increased risk for diabetes (prediabetes).Fasting plasma glucose results greater than or equal to 126 mg/dL meet the criteria for diagnosis of diabetes. In the absence of unequivocal hyperglycemia, results should be confirmed by repeat testing. In a patient with classic symptoms of hyperglycemia or hyperglycemic crisis, random plasma glucose results greater than or equal to 200 mg/dL meet the criteria for diagnosis of diabetes.Reference: Standards of Medical Care in Diabetes 2016, [place] [employer]. Diabetes Care. 2016.39(Suppl 1). Performed By: #### 2 4323-8 ####RODRIGUEZ LABORATORYCLIA [id number] [place] [address] [place] Potassium [Moles/Vol] 4.7 mmol/L Normal 3.7-5.1 [facility] Comment on above: Order Comment: Speci men Type: BLOOD SPECIMENOrdering Facility: [facility] Address: [address] [place] [address] Performed By: #### 2 4323-8 ####RODRIGUEZ LABORATORYCLIA [id number] [address] [place] Protein [Mass/Vol] 6.6 g/dL Normal 6.3-8.0 [facility] Comment on above: Order Comment: Speci men Type: BLOOD SPECIMENOrdering Facility: [facility] Address: [address] [place] [address] Performed By: #### 2 4323-8 ####RODRIGUEZ LABORATORYCLIA [id number] [address] [place] Sodium [Moles/Vol] 135 mmol/L Low 136-144 [facility] Comment on above: Order Comment: Speci men Type: BLOOD SPECIMENOrdering Facility: [facility] Address: [address] [place] [address] Performed By: #### 2 4323-8 ####RODRIGUEZ LABORATORYCLIA [id number] [address] [place] Urea nitrogen [Mass/Vol] 30 mg/dL High 7-21 [facility] Comment on above: Order Comment: Speci men Type: BLOOD SPECIMENOrdering Facility: [facility] Address: [address] [place] [address] Performed By: #### 2 4323-8 ####RODRIGUEZ LABORATORYCLIA [id number] [address] [place] THERAPY NTon 08-19-2024 THERAPY NT Normal [facility] THERAPY NT Normal [facility] Vancomycin [place] SerPl-mCncon 08-19-2024 Vancomycin random [Mass/Vol] 24.6 ug/mL High 10.0-20.0 [facility] Comment on above: Order Comment: Speci men Type: BLOOD SPECIMENOrdering Facility: [facility] Address: [address] [place] [address] Result Comment: Refe rence ranges and high/low indicator flags are provided as general guidelines only. The treating physician must determine appropriate target levels/dosing based on the specific clinical situation. Performed By: #### 4 091-5 ####[facility] LABORATORYCLIA [id number] [place] [address] [place] ALLIED HEALTHon 08-18-2024 ALLIED HEALTH Normal [facility] Bacteria Wnd Culton 08-18-20 24 Bacteria identified Cx Nom (Wound) Abnormal [facility] Comment on above: Performed By: #### 6 462-6 ####[facility] LABCLIA [id number] [facility]ITALDES[facility] [id number] [place] [address] [facility] CASE MGT INIT ASSESon 2023 CASE MGT INIT [facility] CBC panel Auto (Bld)on 08-18 Erythrocyte distribution width (RBC) [Ratio] 17.2 % High 11.5-15.0 [facility] Comment on above: Order Comment: Speci men Type: BLOOD SPECIMENOrdering Facility: [facility] Address: [address] [place] [address] Performed By: #### 5 8410-2 ####RODRIGUEZ LABORATORYCLIA [id number] [address] [place] Hematocrit (Bld) [Volume fraction] 29.8 % Low 36.0-46.0 [facility] Comment on above: Order Comment: Speci men Type: BLOOD SPECIMENOrdering Facility: [facility] Address: [address] [place] [address] Performed By: #### 5 8410-2 ####RODRIGUEZ LABORATORYCLIA [id number] [place] [address] [place] Hemoglobin (Bld) [Mass/Vol] 9.2 g/dL Low 11.5-15.5 [facility] Comment on above: Order Comment: Speci men Type: BLOOD SPECIMENOrdering Facility: [facility] Address: [address] [place] [address] Performed By: #### 5 8410-2 ####RODRIGUEZ LABORATORYCLIA [id number] [address] MCH (RBC) [Entitic mass] 24.6 pg Low 26.0-34.0 [facility] Comment on above: Order Comment: Speci men Type: BLOOD SPECIMENOrdering Facility: [facility] Address: [address] [place] [address] Performed By: #### 5 8410-2 ####RODRIGUEZ LABORATORYCLIA [id number] [address] MCHC (RBC) [Mass/Vol] 30.9 g/dL Normal 30.5-36.0 [facility] Comment on above: Order Comment: Speci men Type: BLOOD SPECIMENOrdering Facility: [facility] Address: [address] [place] [address] Performed By: #### 5 8410-2 ####RODRIGUEZ LABORATORYCLIA [id number] [address] MCV (RBC) [Entitic vol] 79.7 fL Low 80.0-100.[address] [facility] Comment on above: Order Comment: Speci men Type: BLOOD SPECIMENOrdering Facility: [facility] Address: [address] [place] [address] Performed By: #### 5 8410-2 ####RODRIGUEZ LABORATORYCLIA [id number] [address] Nucleated RBC (Bld) [#/Vol] 10*3/uL Normal <0.01 [facility] Comment on above: Order Comment: Speci men Type: BLOOD SPECIMENOrdering Facility: [facility] Address: [address] [place] [address] Performed By: #### 5 8410-2 ####RODRIGUEZ LABORATORYCLIA [id number] [address] Platelet mean volume (Bld) [Entitic vol] 9.1 fL Normal 9.0-12.7 [facility] Comment on above: Order Comment: Speci men Type: BLOOD SPECIMENOrdering Facility: [facility] Address: [address] [place] [address] Performed By: #### 5 8410-2 ####RODRIGUEZ LABORATORYCLIA [id number] [place] [address] [place] Platelets (Bld) [#/Vol] 235 10*3/uL Normal 150-400 [facility] Comment on above: Order Comment: Speci men Type: BLOOD SPECIMENOrdering Facility: [facility] Address: [address] [place] [address] Performed By: #### 5 8410-2 ####RODRIGUEZ LABORATORYCLIA [id number] [place] [address] [place] RBC (Bld) [#/Vol] 3.74 10*6/uL Low 3.90-5.20 [facility] Comment on above: Order Comment: Speci men Type: BLOOD SPECIMENOrdering Facility: [facility] Address: [address] [place] [address] Performed By: #### 5 8410-2 ####RODRIGUEZ LABORATORYCLIA [id number] [place] [address] [place] WBC (Bld) [#/Vol] 9.94 10*3/uL Normal 3.70-11.00 [facility] Comment on above: Order Comment: Speci men Type: BLOOD SPECIMENOrdering Facility: [facility] Address: [address] [place] [address] Performed By: #### 5 8410-2 ####RODRIGUEZ LABORATORYCLIA [id number] [place] [id number] [place] CONSULTon 08-18-2024 CONSULT Normal [facility] CONSULT Normal [facility] CONSULT Normal [facility] Comprehensive metabolic 2000 panelon 08-18-2024 Albumin [Mass/Vol] 2.7 g/dL Low 3.9-4.9 [facility] Comment on above: Order Comment: Speci men Type: BLOOD SPECIMENOrdering Facility: [facility] Address: [address] [place] [address] Performed By: #### 2 432-8, 92949-9 ####RODRIGUEZ LABORATORYCLIA [id number] [place] [address] [place] ALP [Catalytic activity/Vol] 146 U/L High 34-123 [facility] Comment on above: Order Comment: Speci men Type: BLOOD SPECIMENOrdering Facility: [facility] Address: [address] [place] [address] Performed By: #### 2 4323-8, 22652-5 ####RODRIGUEZ LABORATORYCLIA [id number] [place] [id number] [place] ALT [Catalytic activity/Vol] 13 U/L Normal 7-38 [facility] Comment on above: Order Comment: Speci men Type: BLOOD SPECIMENOrdering Facility: [facility] Address: [address] [place] [address] Performed By: #### 2 8, ####RODRIGUEZ LABORATORYCLIA [id number] [place] [address] [place] Anion gap [Moles/Vol] 9 mmol/L Normal 8-15 [facility] Comment on above: Order Comment: Speci men Type: BLOOD SPECIMENOrdering Facility: [facility] Address: [address] [place] [address] Performed By: #### 2 8, ####RODRIGUEZ LABORATORYCLIA [id number] [address] [place] AST [Catalytic activity/Vol] 19 U/L Normal 13-35 [facility] Comment on above: Order Comment: Speci men Type: BLOOD SPECIMENOrdering Facility: [facility] Address: [address] [place] [address] Performed By: #### 2 4323-8, 59995-7 ####RODRIGUEZ LABORATORYCLIA [id number] [place] [id number] [place] Bilirubin [Mass/Vol] 0.3 mg/dL Normal 0.2-1.3 [facility] Comment on above: Order Comment: Speci men Type: BLOOD SPECIMENOrdering Facility: [facility] Address: [address] [place] [address] Performed By: #### 2 4323-8, ####RODRIGUEZ LABORATORYCLIA [id number] [place] [address] [place] Calcium [Mass/Vol] 8.8 mg/dL Normal 8.5-10.2 [facility] Comment on above: Order Comment: Speci men Type: BLOOD SPECIMENOrdering Facility: [facility] Address: [address] [place] [address] Performed By: #### 2 4323-8, ####RODRIGUEZ LABORATORYCLIA [id number] [place] [address] [place] Chloride [Moles/Vol] 103 mmol/L Normal 98-107 [facility] Comment on above: Order Comment: Speci men Type: BLOOD SPECIMENOrdering Facility: [facility] Address: [address] [place] [address] Performed By: #### 2 4323-8, ####RODRIGUEZ LABORATORYCLIA [id number] [place] [address] [place] CO2 [Moles/Vol] 23 mmol/L Normal 22-30 [facility] Comment on above: Order Comment: Speci men Type: BLOOD SPECIMENOrdering Facility: [facility] Address: [address] [place] [address] Performed By: #### 2 4323-8, ####RODRIGUEZ LABORATORYCLIA [id number] [place] [address] [place] Creatinine [Mass/Vol] 0.77 mg/dL Normal 0.58-0.96 [facility] Comment on above: Order Comment: Speci men Type: BLOOD SPECIMENOrdering Facility: [facility] Address: [address] [place], [place] [address] Performed By: #### 2 4323-8, ####RODRIGUEZ LABORATORYCLIA [id number] [address] [place] Creatinine and Glomerular filtration rate.predicted panel (S/P/Bld) 86 mL/min/1.73m??? Normal >=60 [facility] Comment on above: Order Comment: Speci men Type: BLOOD SPECIMENOrdering Facility: [facility] Address: [address] [place] [address] Result Comment: Anuj mated Glomerular Filtration Rate (eGFR) is calculated using the 2020 CKD-EPI creatinine equation. This equation utilizes serum creatinine, sex, and age as parameters. The creatinine assay has traceable calibration to isotope dilution-mass spectrometry. Refer to KDIGO guidelines for clinical interpretation. In patients with unstable renal function, e.g. those with acute kidney injury, the eGFR may not accurately reflect actual GFR. Performed By: #### 2 4323-8, ####[facility] LABORATORYCLIA [id number] [place] [id number] [place] Glucose [Mass/Vol] 102 mg/dL High 74-99 [facility] Comment on above: Order Comment: Lisbet ojeda Type: BLOOD SPECIMENOrdering Facility: [facility] Address: [address] [place] [address] Result Comment: The [place] Diabetes [employer] (ADA) provides guidance for cutoff values for fasting glucose and random glucose. The ADA defines fasting as no caloric intake for at least 8 hours. Fasting plasma glucose results between 100 to 125 mg/dL indicate increased risk for diabetes (prediabetes).Fasting plasma glucose results greater than or equal to 126 mg/dL meet the criteria for diagnosis of diabetes. In the absence of unequivocal hyperglycemia, results should be confirmed by repeat testing. In a patient with classic symptoms of hyperglycemia or hyperglycemic crisis, random plasma glucose results greater than or equal to 200 mg/dL meet the criteria for diagnosis of diabetes.Reference: Standards of Medical Care in Diabetes 2016, [place] [employer]. Diabetes Care. 2016.39(Suppl 1). Performed By: #### 2 4323-8, ####[facility] LABORATORYCLIA [id number] [place] [address] [place] Potassium [Moles/Vol] 4.9 mmol/L Normal 3.7-5.1 [facility] Comment on above: Order Comment: Lisbet ojeda Type: BLOOD SPECIMENOrdering Facility: [facility] Address: [address] [place] [id number] Performed By: #### 2 3-8, ####RODRIGUEZ LABORATORYCLIA [id number] [address] STATES OF [facility] Protein [Mass/Vol] 6.3 g/dL Normal 6.3-8.0 [facility] Comment on above: Order Comment: Speci men Type: BLOOD SPECIMENOrdering Facility: [facility] Address: [address] [place] [address] Performed By: #### 2 4323-8, 45700-8 ####RODRIGUEZ LABORATORYCLIA [id number] [place] [address] [place] Sodium [Moles/Vol] 135 mmol/L Low 136-144 [facility] Comment on above: Order Comment: Speci men Type: BLOOD SPECIMENOrdering Facility: [facility] Address: [address] [place] [address] Performed By: #### 2 4323-8, ####[facility] LABORATORYCLIA [id number] [address] [place] Urea nitrogen [Mass/Vol] 33 mg/dL High 7-21 [facility] Comment on above: Order Comment: Speci men Type: BLOOD SPECIMENOrdering Facility: [facility] Address: [address] [place] [address] Performed By: #### 2 4323-8, ####RODRIGUEZ LABORATORYCLIA [id number] [place] [address] [place] ESR Westergren method (Bld) [Velocity]on 08-18-2024 ESR (Bld) [Velocity] 97 mm/h High 0-20 [facility] Comment on above: Order Comment: Speci men Type: BLOOD SPECIMENOrdering Facility: [facility] Address: [address] [place] [address] Performed By: #### 4 537-7 ####[facility] LABCLIA [id number] [place] [address] [place] MRI LOWER LEG WO IVCON LTon 08-18-2024 MRI LOWER LEG WO IVCON LT Normal [facility] MRI LOWER LEG WO IVCON RTon 08-18-2024 MRI LOWER LEG WO IVCON RT Normal [facility] Magnesium SerPl-mCncon 08-18 Magnesium [Mass/Vol] 1.7 mg/dL Normal 1.7-2.3 [facility] Comment on above: Order Comment: Lisbet ojeda Type: BLOOD SPECIMENOrdering Facility: [facility] Address: [address] [place] [address] Performed By: #### 2 4323-8, 65513-7 ####[facility] LABORATORYCLIA [id number] [place] [id number] [place] PT panel Coag (PPP)on 2023 INR Coag (PPP) [Relative time] 1.2 {INR} Normal 0.9-1.3 [facility] Comment on above: Order Comment: Lisbet ojeda Type: BLOOD SPECIMENOrdering Facility: [facility] Address: [address] [place] [address] Result Comment: Marva min K Antagonist (VKA) Therapeutic Range: INR 2 to 3 (Target INR of 2.5)Note: For patients treated with VKA drugs, such as warfarin, the [employer] 2012 Guideline recommends a therapeutic INR range of 2 to 3 (target INR of 2.5). This recommendation includes high-risk patients with antiphospholipid syndrome with previous arterial or venous thromboembolism, current-generation mechanical or bioprosthetic aortic heart valve replacement.Note: Patients with mechanical aortic valve replacement and additional risk factors for thromboembolic events (atrial fibrillation, previous thromboembolism, LV dysfunction, hypercoagulable conditions) or an older generation mechanical AVR (i.e., ball in-Cage) or any mechanical MVR should have a INR therapeutic range of 2.5 to 3.5 (target INR of 3).Charmaine PIERRE, et al. Chest 2012, 141:7S-47SNishimcelso RA, et al. JACC 2017, 70: 252-289 Performed By: #### 3 4528-0, 28666-7 ####[facility] LABORATORYCLIA [id number] [place] [id number] [place] PT Coag (PPP) [Time] 12.5 s Normal 9.7-13.0 [facility] Comment on above: Order Comment: Lisbet ojeda Type: BLOOD SPECIMENOrdering Facility: [facility] Address: [address] [place] [address] Performed By: #### 3 4528-0, 86519-8 ####RODRIGUEZ LABORATORYCLIA [id number] [address] OF [facility] THERAPY NTon 08-18-2024 THERAPY NT Normal [facility] THERAPY NT Normal [facility] aPTT PPPon 08-18-2024 aPTT Coag (PPP) [Time] 33.7 s High 23.0-32.4 [facility] Comment on above: Order Comment: Speci men Type: BLOOD SPECIMENOrdering Facility: [facility] Address: [address] [place] [address] Performed By: #### 3 4528-0, 71439-2 ####RODRIGUEZ LABORATORYCLIA [id number] [address] [place] ALLIED HEALTHon 08-17-2024 ALLIED HEALTH Normal [facility] Bacteria Bld Culton 08-17-20 24 Bacteria identified Cx Nom (Bld) CULTURE, BLOOD: No growth 5 days Normal [facility] Comment on above: Performed By: #### 6 00-7 ####[facility] LABCLIA [id number] [address] [place] Bacteria identified Cx Nom (Bld) CULTURE, BLOOD: No growth 5 days GRAM STAIN: This blood culture had less than the recommended 8 ml per bottle, which could decrease the sensitivity of the test. [facility] Comment on above: Performed By: #### 6 00-7 ####[facility] LABCLIA [id number] [address] [place] CBC W Auto Differential pane l (Bld)on 08-17-2024 Basophils (Bld) [#/Vol] 0.06 10*3/uL Normal <0.11 [facility] Comment on above: Order Comment: Speci men Type: BLOOD SPECIMENOrdering Facility: [facility] Address: [address] [place] [address] Performed By: #### 5 7021-8 ####RODRIGUEZ LABORATORYCLIA [id number] [place] [address] [place] Basophils/100 WBC (Bld) 0.6 % Normal [facility] Comment on above: Order Comment: Speci men Type: BLOOD SPECIMENOrdering Facility: [facility] Address: [address] [place] [address] Performed By: #### 5 7021-8 ####RODRIGUEZ LABORATORYCLIA [id number] [place] [address] [place] Differential cell count method Nom (Bld) Auto Normal [facility] Comment on above: Order Comment: Speci men Type: BLOOD SPECIMENOrdering Facility: [facility] Address: [address] [place] [address] Performed By: #### 5 7021-8 ####RODRIGUEZ LABORATORYCLIA [id number] [place] [address] [place] Eosinophils (Bld) [#/Vol] 0.28 10*3/uL Normal <0.46 [facility] Comment on above: Order Comment: Speci men Type: BLOOD SPECIMENOrdering Facility: [facility] Address: [address] [place] [address] Performed By: #### 5 7021-8 ####RODRIGUEZ LABORATORYCLIA [id number] [address] [place] Eosinophils/100 WBC (Bld) 2.7 % Normal [facility] Comment on above: Order Comment: Speci men Type: BLOOD SPECIMENOrdering Facility: [facility] Address: [address] [place] [address] Performed By: #### 5 7021-8 ####RODRIGUEZ LABORATORYCLIA [id number] [place] [address] [place] Erythrocyte distribution width (RBC) [Ratio] 17.3 % High 11.5-15.0 [facility] Comment on above: Order Comment: Speci men Type: BLOOD SPECIMENOrdering Facility: [facility] Address: [address] [place] [address] Performed By: #### 5 7021-8 ####RODRIGUEZ LABORATORYCLIA [id number] [address] [place] Hematocrit (Bld) [Volume fraction] 35.1 % Low 36.0-46.0 [facility] Comment on above: Order Comment: Speci men Type: BLOOD SPECIMENOrdering Facility: [facility] Address: [address] [place] [address] Performed By: #### 5 7021-8 ####RODRIGUEZ LABORATORYCLIA [id number] [place] [address] [place] Hemoglobin (Bld) [Mass/Vol] 10.9 g/dL Low 11.5-15.5 [facility] Comment on above: Order Comment: Speci men Type: BLOOD SPECIMENOrdering Facility: [facility] Address: [address] [place] [address] Performed By: #### 5 7021-8 ####RODRIGUEZ LABORATORYCLIA [id number] [place] [address] [place] Immature granulocytes (Bld) [#/Vol] 0.04 10*3/uL Normal <0.10 [facility] Comment on above: Order Comment: Speci men Type: BLOOD SPECIMENOrdering Facility: [facility] Address: [address] [place] [address] Performed By: #### 5 7021-8 ####RODRIGUEZ LABORATORYCLIA [id number] [address] [place] Immature granulocytes/100 WBC (Bld) 0.4 % Normal [facility] Comment on above: Order Comment: Speci men Type: BLOOD SPECIMENOrdering Facility: [facility] Address: [address] [place] [address] Performed By: #### 5 7021-8 ####RODRIGUEZ LABORATORYCLIA [id number] [place] [address] [place] Lymphocytes (Bld) [#/Vol] 1.41 10*3/uL Normal 1.00-4.00 [facility] Comment on above: Order Comment: Speci men Type: BLOOD SPECIMENOrdering Facility: [facility] Address: [facility] [place] [address] Performed By: #### 5 7021-8 ####RODRIGUEZ LABORATORYCLIA [id number] [address] [place] Lymphocytes/100 WBC (Bld) 13.6 % Normal [facility] Comment on above: Order Comment: Speci men Type: BLOOD SPECIMENOrdering Facility: [facility] Address: [address] [place] [address] Performed By: #### 5 7021-8 ####RODRIGUEZ LABORATORYCLIA [id number] [place] [address] [place] MCH (RBC) [Entitic mass] 24.8 pg Low 26.0-34.0 [facility] Comment on above: Order Comment: Speci men Type: BLOOD SPECIMENOrdering Facility: [facility] Address: [address] [place] [address] Performed By: #### 5 7021-8 ####RODRIGUEZ LABORATORYCLIA [id number] [place] [address] [place] MCHC (RBC) [Mass/Vol] 31.1 g/dL Normal 30.5-36.0 [facility] Comment on above: Order Comment: Speci men Type: BLOOD SPECIMENOrdering Facility: [facility] Address: [address] [place] [address] Performed By: #### 5 7021-8 ####RODRIGUEZ LABORATORYCLIA [id number] [address] [place] MCV (RBC) [Entitic vol] 79.8 fL Low 80.0-100.[address] [facility] Comment on above: Order Comment: Speci men Type: BLOOD SPECIMENOrdering Facility: [facility] Address: [address] [place] [address] Performed By: #### 5 7021-8 ####RODRIGUEZ LABORATORYCLIA [id number] [address] [place] Monocytes (Bld) [#/Vol] 1.01 10*3/uL High <0.87 [facility] Comment on above: Order Comment: Speci men Type: BLOOD SPECIMENOrdering Facility: [facility] Address: [address] [place] [address] Performed By: #### 5 7021-8 ####RODRIGUEZ LABORATORYCLIA [id number] [place] [address] [place] Monocytes/100 WBC (Bld) 9.7 % Normal [facility] Comment on above: Order Comment: Speci men Type: BLOOD SPECIMENOrdering Facility: [facility] Address: [address] [place] [address] Performed By: #### 5 7021-8 ####RODRIGUEZ LABORATORYCLIA [id number] [place] [address] [place] Neutrophils (Bld) [#/Vol] 7.58 10*3/uL High 1.45-7.50 [facility] Comment on above: Order Comment: Speci men Type: BLOOD SPECIMENOrdering Facility: [facility] Address: [address] [place] [address] Performed By: #### 5 7021-8 ####RODRIGUEZ LABORATORYCLIA [id number] [place] [address] [place] Neutrophils/100 WBC (Bld) 73.0 % Normal [facility] Comment on above: Order Comment: Speci men Type: BLOOD SPECIMENOrdering Facility: [facility] Address: [address] [place] [address] Performed By: #### 5 7021-8 ####RODRIGUEZ LABORATORYCLIA [id number] [place] [address] [place] Nucleated RBC (Bld) [#/Vol] 10*3/uL Normal <0.01 [facility] Comment on above: Order Comment: Speci men Type: BLOOD SPECIMENOrdering Facility: [facility] Address: [address] [place] [address] Performed By: #### 5 7021-8 ####RODRIGUEZ LABORATORYCLIA [id number] [place] [address] [place] Nucleated RBC/100 WBC (Bld) [Ratio] 0.0 /100 WBC Normal [facility] Comment on above: Order Comment: Speci men Type: BLOOD SPECIMENOrdering Facility: [facility] Address: [address] [place] [address] Performed By: #### 5 7021-8 ####RODRIGUEZ LABORATORYCLIA [id number] [place] [address] [place] Platelet mean volume (Bld) [Entitic vol] 9.3 fL Normal 9.0-12.7 [facility] Comment on above: Order Comment: Speci men Type: BLOOD SPECIMENOrdering Facility: [facility] Address: [address] [place] [address] Performed By: #### 5 7021-8 ####[facility] LABORATORYCLIA [id number] [place] [address] [place] Platelets (Bld) [#/Vol] 341 10*3/uL Normal 150-400 [facility] Comment on above: Order Comment: Speci men Type: BLOOD SPECIMENOrdering Facility: [facility] Address: [address] [place] [address] Performed By: #### 5 7021-8 ####[facility] LABORATORYCLIA [id number] [place] [address] [place] RBC (Bld) [#/Vol] 4.40 10*6/uL Normal 3.90-5.20 [facility] Comment on above: Order Comment: Speci men Type: BLOOD SPECIMENOrdering Facility: [facility] Address: [address] [place] [address] Performed By: #### 5 7021-8 ####[facility] LABORATORYCLIA [id number] [place] [address] [place] WBC (Bld) [#/Vol] 10.38 10*3/uL Normal 3.70-11.00 [facility] Comment on above: Order Comment: Speci men Type: BLOOD SPECIMENOrdering Facility: [facility] Address: [address] [place] [address] Performed By: #### 5 7021-8 ####[facility] LABORATORYCLIA [id number] [address] [place] CNOVon 08-17-2024 CNOV Normal [facility] CONSULT PROGon 08-17-2024 CONSULT PROG [facility] CRP SerPl-mCncon 08-17-2024 CRP [Mass/Vol] 13.6 mg/dL High <0.9 [facility] Comment on above: Order Comment: Speci men Type: BLOOD SPECIMENOrdering Facility: [facility] Address: [facility] [place] [id number] Performed By: #### 2 4323-04, 1988-01 ####RODRIGUEZ LABORATORYCLIA [id number] [place] [address] [place] Comprehensive metabolic 2000 panelon 08-17-2024 Albumin [Mass/Vol] 3.3 g/dL Low 3.9-4.9 [facility] Comment on above: Order Comment: Speci men Type: BLOOD SPECIMENOrdering Facility: [facility] Address: [facility] [place] [address] Performed By: #### 2 4323-04, 1988-01 ####RODRIGUEZ LABORATORYCLIA [id number] [place] [address] [place] ALP [Catalytic activity/Vol] 211 U/L High 34-123 [facility] Comment on above: Order Comment: Speci men Type: BLOOD SPECIMENOrdering Facility: [facility] Address: [address] [place] [address] Performed By: #### 2 4323-04, 1988-01 ####RODRIGUEZ LABORATORYCLIA [id number] [address] [place] ALT [Catalytic activity/Vol] 19 U/L Normal 7-38 [facility] Comment on above: Order Comment: Speci men Type: BLOOD SPECIMENOrdering Facility: [facility] Address: [address] [place] [address] Performed By: #### 2 4323-04, 1988-01 ####RODRIGUEZ LABORATORYCLIA [id number] [place] [address] [place] Anion gap [Moles/Vol] 13 mmol/L Normal 8-15 [facility] Comment on above: Order Comment: Speci men Type: BLOOD SPECIMENOrdering Facility: [facility] Address: [address] [place] [address] Performed By: #### 2 4323-04, 1988-01 ####RODRIGUEZ LABORATORYCLIA [id number] [place] [address] [place] AST [Catalytic activity/Vol] 31 U/L Normal 13-35 [facility] Comment on above: Order Comment: Speci men Type: BLOOD SPECIMENOrdering Facility: [facility] Address: [facility] [place] [id number] Performed By: #### 2 4323-04, 1988-01 ####RODRIGUEZ LABORATORYCLIA [id number] [place] [address] [place] Bilirubin [Mass/Vol] 0.3 mg/dL Normal 0.2-1.3 [facility] Comment on above: Order Comment: Speci men Type: BLOOD SPECIMENOrdering Facility: [facility] Address: [facility] [place] [address] Performed By: #### 2 4323-04, 1988-01 ####RODRIGUEZ LABORATORYCLIA [id number] [place] [address] [place] Calcium [Mass/Vol] 9.5 mg/dL Normal 8.5-10.2 [facility] Comment on above: Order Comment: Speci men Type: BLOOD SPECIMENOrdering Facility: [facility] Address: [facility] [place] [address] Performed By: #### 2 4323-04, 1988-01 ####RODRIGUEZ LABORATORYCLIA [id number] [place] [address] [place] Chloride [Moles/Vol] 99 mmol/L Normal 98-107 [facility] Comment on above: Order Comment: Speci men Type: BLOOD SPECIMENOrdering Facility: [facility] Address: [facility] [place] [address] Performed By: #### 2 4323-04, 1988-01 ####RODRIGUEZ LABORATORYCLIA [id number] [place] [address] [place] CO2 [Moles/Vol] 24 mmol/L Normal 22-30 [facility] Comment on above: Order Comment: Speci men Type: BLOOD SPECIMENOrdering Facility: [facility] Address: [facility] [place] [address] Performed By: #### 2 4323-04, 1988-01 ####RODRIGUEZ LABORATORYCLIA [id number] [place] [address] [place] [facility] Creatinine [Mass/Vol] 0.73 mg/dL Normal 0.58-0.96 [facility] Comment on above: Order Comment: Lisbet ojeda Type: BLOOD SPECIMENOrdering Facility: [facility] Address: [address] [place] [address] Performed By: #### 2 43238, 1988-01 ####RODRIGUEZ LABORATORYCLIA [id number] [place] [id number] [facility] Creatinine and Glomerular filtration rate.predicted panel (S/P/Bld) 92 mL/min/1.73m??? Normal >=60 [facility] Comment on above: Order Comment: Lisbet ojeda Type: BLOOD SPECIMENOrdering Facility: [facility] Address: [address] [place] [address] Result Comment: Anuj mated Glomerular Filtration Rate (eGFR) is calculated using the 2020 CKD-EPI creatinine equation. This equation utilizes serum creatinine, sex, and age as parameters. The creatinine assay has traceable calibration to isotope dilution-mass spectrometry. Refer to KDIGO guidelines for clinical interpretation. In patients with unstable renal function, e.g. those with acute kidney injury, the eGFR may not accurately reflect actual GFR. Performed By: #### 2 4323, 1988-01 ####RODRIGUEZ LABORATORYCLIA [id number] [place] [id number] [place] [facility] Glucose [Mass/Vol] 84 mg/dL Normal 74-99 [facility] Comment on above: Order Comment: Lisbet ojeda Type: BLOOD SPECIMENOrdering Facility: [facility] Address: [address] [place] [address] Result Comment: The [place] [employer] (ADA) provides guidance for cutoff values for fasting glucose and random glucose. The ADA defines fasting as no caloric intake for at least 8 hours. Fasting plasma glucose results between 100 to 125 mg/dL indicate increased risk for diabetes (prediabetes).Fasting plasma glucose results greater than or equal to 126 mg/dL meet the criteria for diagnosis of diabetes. In the absence of unequivocal hyperglycemia, results should be confirmed by repeat testing. In a patient with classic symptoms of hyperglycemia or hyperglycemic crisis, random plasma glucose results greater than or equal to 200 mg/dL meet the criteria for diagnosis of diabetes.Reference: Standards of Medical Care in Diabetes 2016, [place] [employer]. Diabetes Care. 2016.39(Suppl 1). Performed By: #### 2 4323-04, 1988-01 ####RODRIGUEZ LABORATORYCLIA [id number] [place] [address] [place] Potassium [Moles/Vol] 4.5 mmol/L Normal 3.7-5.1 [facility] Comment on above: Order Comment: Lisbet men Type: BLOOD SPECIMENOrdering Facility: [facility] Address: [address] [place] [address] Performed By: #### 2 4323-04, 1988-01 ####RODRIGUEZ LABORATORYCLIA [id number] [place] [address] [place] Protein [Mass/Vol] 7.7 g/dL Normal 6.3-8.0 [facility] Comment on above: Order Comment: Lisbet ojeda Type: BLOOD SPECIMENOrdering Facility: [facility] Address: [address] [place] [address] Performed By: #### 2 4323-04, 1988-01 ####RODRIGUEZ LABORATORYCLIA [id number] [place] [address] [place] Sodium [Moles/Vol] 136 mmol/L Normal 136-144 [facility] Comment on above: Order Comment: Lisbet ojeda Type: BLOOD SPECIMENOrdering Facility: [facility] Address: [address] [place] [address] Performed By: #### 2 4323-04, 1988-01 ####RODRIGUEZ LABORATORYCLIA [id number] [place] [id number] [place] Urea nitrogen [Mass/Vol] 37 mg/dL High 7-21 [facility] Comment on above: Order Comment: Lisbet men Type: BLOOD SPECIMENOrdering Facility: [facility] Address: [facility] [place] [address] Performed By: #### 2 4323-04, 1988-01 ####RODRIGUEZ LABORATORYCLIA [id number] [place] [address] [place] ED NOTEon 08-17-2024 ED NOTE HNO ID: [id number] Author: HEIDI MENENDEZ, RN Service: Nursing Author Type: Registered Nurse Type: ED Notes Filed: 08/17/2024 16:32 Note Text: 2 South Charge Nurse Marry munroe report is in. [facility] ED NOTE HNO ID: [id number] Author: HEIDI MENENDEZ RN Service: Nursing Author Type: Registered Nurse Type: ED Notes Filed: 08/17/2024 16:00 Note Text: Wound dressing changed on bilateral lower extremities. ABD bandage and xeroform used. [facility] ED PROV NOTEon 08-17-2024 ED PROV NOTE [facility] HISTORY PHYSICALon HISTORY PHYSICAL [facility] SEPSIS LACTATE W/ REFLEX (IN ITIAL)on 08-17-2024 Lactate [Moles/Vol] 1.5 mmol/L Normal 0.5-2.0 [facility] Comment on above: Order Comment: Speci men Type: BLOOD SPECIMENOrdering Facility: [facility] Address: [address] [place], [place] [address] Performed By: #### S LACTR ####[facility] LABORATORYCLIA [id number] [place] [address] [place] XR FOOT 3V AP/LAT/OBL LTon 1 10-18-2023 XR FOOT 3V AP/LAT/OBL LT [facility] XR TIBIA FIBULA 2V AP/LAT LT on 08-17-2024 XR TIBIA FIBULA 2V AP/LAT LT [facility] XR TIBIA FIBULA 2V AP/LAT RT on 08-17-2024 XR TIBIA FIBULA 2V AP/LAT RT [facility] CNPNon 08-09-2024 [facility] 08-07-2024 [facility] Basic metabolic 2000 panelon 08-02-2024 Anion gap [Moles/Vol] 11 mmol/L Normal 8-15 [facility] Comment on above: Order Comment: Speci men Type: BLOOD SPECIMENOrdering Facility: [facility] Address: [address] [place] [address] Performed By: #### 2 4321-2 ####PH[facility]EN[facility] LABORATORYCLIA [id number] [place] [address] [place] Calcium [Mass/Vol] 8.6 mg/dL Normal 8.5-10.2 [facility] Comment on above: Order Comment: Speci men Type: BLOOD SPECIMENOrdering Facility: [facility] Address: [address] [place] [address] Performed By: #### 2 4321-2 ####RODRIGUEZ LABORATORYCLIA [id number] [place] [address] [place] Chloride [Moles/Vol] 95 mmol/L Low 98-107 [facility] Comment on above: Order Comment: Speci men Type: BLOOD SPECIMENOrdering Facility: [facility] Address: [address] [place] [address] Performed By: #### 2 4321-2 ####RODRIGUEZ LABORATORYCLIA [id number] [place] [address] [place] CO2 [Moles/Vol] 28 mmol/L Normal 22-30 [facility] Comment on above: Order Comment: Speci men Type: BLOOD SPECIMENOrdering Facility: [facility] Address: [address] [place] [address] Performed By: #### 2 4321-2 ####RODRIGUEZ LABORATORYCLIA [id number] [place] [address] [place] Creatinine [Mass/Vol] 1.20 mg/dL High 0.58-0.96 [facility] Comment on above: Order Comment: Speci men Type: BLOOD SPECIMENOrdering Facility: [facility] Address: [address] [place] [address] Performed By: #### 2 4321-2 ####RODRIGUEZ LABORATORYCLIA [id number] [place] [address] [place] Creatinine and Glomerular filtration rate.predicted panel (S/P/Bld) 51 mL/min/1.73m??? Low >=60 [facility] Comment on above: Order Comment: Speci men Type: BLOOD SPECIMENOrdering Facility: [facility] Address: [address] [place] [address] Result Comment: Anuj mated Glomerular Filtration Rate (eGFR) is calculated using the 2020 CKD-EPI creatinine equation. This equation utilizes serum creatinine, sex, and age as parameters. The creatinine assay has traceable calibration to isotope dilution-mass spectrometry. Refer to KDIGO guidelines for clinical interpretation. In patients with unstable renal function, e.g. those with acute kidney injury, the eGFR may not accurately reflect actual GFR. Performed By: #### 2 4321-2 ####PHOENIX LABORATORYCLIA [id number] [place] [address] [place] Glucose [Mass/Vol] 97 mg/dL Normal 74-99 [facility] Comment on above: Order Comment: Lsibet ojeda Type: BLOOD SPECIMENOrdering Facility: [facility] Address: [address] [place] [address] Result Comment: The [place] Diabetes [employer] (ADA) provides guidance for cutoff values for fasting glucose and random glucose. The ADA defines fasting as no caloric intake for at least 8 hours. Fasting plasma glucose results between 100 to 125 mg/dL indicate increased risk for diabetes (prediabetes).Fasting plasma glucose results greater than or equal to 126 mg/dL meet the criteria for diagnosis of diabetes. In the absence of unequivocal hyperglycemia, results should be confirmed by repeat testing. In a patient with classic symptoms of hyperglycemia or hyperglycemic crisis, random plasma glucose results greater than or equal to 200 mg/dL meet the criteria for diagnosis of diabetes.Reference: Standards of Medical Care in Diabetes 2016, [place] [employer]. Diabetes Care. 2016.39(Suppl 1). Performed By: #### 2 4321-2 ####PHOENIX LABORATORYCLIA [id number] [place] [id number] [place] Potassium [Moles/Vol] 4.8 mmol/L Normal 3.7-5.1 [facility] Comment on above: Order Comment: Lisbet ojeda Type: BLOOD SPECIMENOrdering Facility: [facility] Address: [address] [place] [address] Performed By: #### 2 4321-2 ####RODRIGUEZ LABORATORYCLIA [id number] [place] [address] [place] Sodium [Moles/Vol] 134 mmol/L Low 136-144 [facility] Comment on above: Order Comment: Lisbet ojeda Type: BLOOD SPECIMENOrdering Facility: [facility] Address: [address] [place] [address] Performed By: #### 2 4321-2 ####RODRIGUEZ LABORATORYCLIA [id number] [place] [id number] [place] Urea nitrogen [Mass/Vol] 35 mg/dL High 7-21 [facility] Comment on above: Order Comment: Speci men Type: BLOOD SPECIMENOrdering Facility: [facility] Address: [address] [place] [address] Performed By: #### 2 4321-2 ####RODRIGUEZ LABORATORYCLIA [id number] [place] [address] [place] CASE MANAGEMon 08-02-2024 CASE MANAGEM Normal [facility] CNDSon 08-02-2024 CNDS [facility] CONSULT PROGon 08-02-2024 CONSULT PROG [facility] THERAPY NTon 08-02-2024 THERAPY NT [facility] THERAPY NT [facility] ANES POSTPROC EVALon 024 ANES POSTPROC EVAL [facility] ANES PRE-OPon 08-01-2024 ANES PRE-OP [facility] BRIEF OP NOTon 08-01-2024 BRIEF OP NOT [facility] Basic metabolic 2000 panelon 08-01-2024 Anion gap [Moles/Vol] 10 mmol/L Normal 8-15 [facility] Comment on above: Order Comment: Speci men Type: BLOOD SPECIMENOrdering Facility: [facility] Address: [address] [place] [address] Performed By: #### 2 4321-2 ####RODRIGUEZ LABORATORYCLIA [id number] [place] [id number] [place] Calcium [Mass/Vol] 8.5 mg/dL Normal 8.5-10.2 [facility] Comment on above: Order Comment: Speci men Type: BLOOD SPECIMENOrdering Facility: [facility] Address: [address] [place] [address] Performed By: #### 2 4321-2 ####RODRIGUEZ LABORATORYCLIA [id number] [place] [id number] [place] Chloride [Moles/Vol] 94 mmol/L Low 98-107 [facility] Comment on above: Order Comment: Speci men Type: BLOOD SPECIMENOrdering Facility: [facility] Address: [address] [place] [address] Performed By: #### 2 4321-2 ####RODRIGUEZ LABORATORYCLIA [id number] [place] [address] [place] CO2 [Moles/Vol] 27 mmol/L Normal 22-30 [facility] Comment on above: Order Comment: Speci men Type: BLOOD SPECIMENOrdering Facility: [facility] Address: [address] [place] [address] Performed By: #### 2 4321-2 ####RODRIGUEZ LABORATORYCLIA [id number] [place] [address] [place] Creatinine [Mass/Vol] 1.26 mg/dL High 0.58-0.96 [facility] Comment on above: Order Comment: Speci men Type: BLOOD SPECIMENOrdering Facility: [facility] Address: [address] [place] [address] Performed By: #### 2 4321-2 ####RODRIGUEZ LABORATORYCLIA [id number] [address] [place] Creatinine and Glomerular filtration rate.predicted panel (S/P/Bld) 48 mL/min/1.73m??? Low >=60 [facility] Comment on above: Order Comment: Speci lynette Type: BLOOD SPECIMENOrdering Facility: [facility] Address: [address] [place] [address] Result Comment: Anuj mated Glomerular Filtration Rate (eGFR) is calculated using the 2020 CKD-EPI creatinine equation. This equation utilizes serum creatinine, sex, and age as parameters. The creatinine assay has traceable calibration to isotope dilution-mass spectrometry. Refer to KDIGO guidelines for clinical interpretation. In patients with unstable renal function, e.g. those with acute kidney injury, the eGFR may not accurately reflect actual GFR. Performed By: #### 2 4321-2 ####RODRIGUEZ LABORATORYCLIA [id number] [place] [id number] [place] Glucose [Mass/Vol] 125 mg/dL High 74-99 [facility] Comment on above: Order Comment: Lisbet ojeda Type: BLOOD SPECIMENOrdering Facility: [facility] Address: [address] [place] [address] Result Comment: The [place] Diabetes Association (ADA) provides guidance for cutoff values for fasting glucose and random glucose. The ADA defines fasting as no caloric intake for at least 8 hours. Fasting plasma glucose results between 100 to 125 mg/dL indicate increased risk for diabetes (prediabetes).Fasting plasma glucose results greater than or equal to 126 mg/dL meet the criteria for diagnosis of diabetes. In the absence of unequivocal hyperglycemia, results should be confirmed by repeat testing. In a patient with classic symptoms of hyperglycemia or hyperglycemic crisis, random plasma glucose results greater than or equal to 200 mg/dL meet the criteria for diagnosis of diabetes.Reference: Standards of Medical Care in Diabetes 2016, [place] [employer]. Diabetes Care. 2016.39(Suppl 1). Performed By: #### 2 4321-2 ####RODRIGUEZ LABORATORYCLIA [id number] [place] [address] [place] Potassium [Moles/Vol] 4.7 mmol/L Normal 3.7-5.1 [facility] Comment on above: Order Comment: Lisbet [facility] Type: BLOOD SPECIMENOrdering Facility: [facility] Address: [address] [place] [address] Performed By: #### 2 4321-2 ####RODRIGUEZ LABORATORYCLIA [id number] [place] [address] [place] Sodium [Moles/Vol] 131 mmol/L Low 136-144 [facility] Comment on above: Order Comment: Lisbet ojeda Type: BLOOD SPECIMENOrdering Facility: [facility] Address: [address] [place] [address] Performed By: #### 2 4321-2 ####RODRIGUEZ LABORATORYCLIA [id number] [place] [address] [place] Urea nitrogen [Mass/Vol] 35 mg/dL High 7-21 [facility] Comment on above: Order Comment: Lisbet lynette Type: BLOOD SPECIMENOrdering Facility: [facility] Address: [address] [place] [id number] Performed By: #### 2 4321-2 ####RODRIGUEZ LABORATORYCLIA [id number] [address] OF [facility] CASE MANAGEMon 08-01-2024 CASE MANAGEM Normal [facility] CASE MANAGEM Normal [facility] CASE MANAGEM Normal [facility] CBC panel Auto (Bld)on 08-01 Erythrocyte distribution width (RBC) [Ratio] 16.8 % High 11.5-15.0 [facility] Comment on above: Order Comment: Speci men Type: BLOOD SPECIMENOrdering Facility: [facility] Address: [address] [place] [address] Performed By: #### 5 8410-2 ####RODRIGUEZ LABORATORYCLIA [id number] [address] Hematocrit (Bld) [Volume fraction] 32.2 % Low 36.0-46.0 [facility] Comment on above: Order Comment: Speci men Type: BLOOD SPECIMENOrdering Facility: [facility] Address: [address] [place] [address] Performed By: #### 5 8410-2 ####RODRIGUEZ LABORATORYCLIA [id number] [address] [place] Hemoglobin (Bld) [Mass/Vol] 10.1 g/dL Low 11.5-15.5 [facility] Comment on above: Order Comment: Speci men Type: BLOOD SPECIMENOrdering Facility: [facility] Address: [address] [place] [address] Performed By: #### 5 8410-2 ####RODRIGUEZ LABORATORYCLIA [id number] [address] STATES [facility] MCH (RBC) [Entitic mass] 24.8 pg Low 26.0-34.0 [facility] Comment on above: Order Comment: Speci men Type: BLOOD SPECIMENOrdering Facility: [facility] Address: [address] [place] [address] Performed By: #### 5 8410-2 ####RODRIGUEZ LABORATORYCLIA [id number] [address] STATES [facility] MCHC (RBC) [Mass/Vol] 31.4 g/dL Normal 30.5-36.0 [facility] Comment on above: Order Comment: Speci men Type: BLOOD SPECIMENOrdering Facility: [facility] Address: [address] [facility] [place] [address] Performed By: #### 5 8410-2 ####RODRIGUEZ LABORATORYCLIA [id number] [place] [address] [place] MCV (RBC) [Entitic vol] 79.1 fL Low 80.0-100.[address] [facility] Comment on above: Order Comment: Speci men Type: BLOOD SPECIMENOrdering Facility: [facility] Address: [address] [place] [address] Performed By: #### 5 8410-2 ####RODRIGUEZ LABORATORYCLIA [id number] [place] [address] [place] Nucleated RBC (Bld) [#/Vol] 10*3/uL Normal <0.01 [facility] Comment on above: Order Comment: Speci men Type: BLOOD SPECIMENOrdering Facility: [facility] Address: [address] [place] [address] Performed By: #### 5 8410-2 ####RODRIGUEZ LABORATORYCLIA [id number] [place] [address] [place] Platelet mean volume (Bld) [Entitic vol] 8.7 fL Low 9.0-12.7 [facility] Comment on above: Order Comment: Speci men Type: BLOOD SPECIMENOrdering Facility: [facility] Address: [address] [place] [address] Performed By: #### 5 8410-2 ####RODRIGUEZ LABORATORYCLIA [id number] [place] [address] [place] Platelets (Bld) [#/Vol] 238 10*3/uL Normal 150-400 [facility] Comment on above: Order Comment: Speci men Type: BLOOD SPECIMENOrdering Facility: [facility] Address: [address] [place] [address] Performed By: #### 5 8410-2 ####RODRIGUEZ LABORATORYCLIA [id number] [place] [address] [place] RBC (Bld) [#/Vol] 4.07 10*6/uL Normal 3.90-5.20 [facility] Comment on above: Order Comment: Speci men Type: BLOOD SPECIMENOrdering Facility: [facility] Address: [address] [place] [address] Performed By: #### 5 8410-2 ####RODRIGUEZ LABORATORYCLIA [id number] [place] [address] [place] WBC (Bld) [#/Vol] 7.55 10*3/uL Normal 3.70-11.00 [facility] Comment on above: Order Comment: Speci men Type: BLOOD SPECIMENOrdering Facility: [facility] Address: [address] [place] [address] Performed By: #### 5 8410-2 ####RODRIGUEZ LABORATORYCLIA [id number] [address] [place] CONSULT PROGon 08-01-2024 CONSULT PROG Normal [facility] HISTORY PHYSICALon HISTORY PHYSICAL Normal [facility] NURSING PROGon 08-01-2024 NURSING PROG Normal [facility] OPERATIVE NOon 08-01-2024 OPERATIVE NO Normal [facility] Basic metabolic 2000 panelon 07-31-2024 Anion gap [Moles/Vol] 9 mmol/L Normal 8-15 [facility] Comment on above: Order Comment: Speci men Type: BLOOD SPECIMENOrdering Facility: [facility] Address: [address] [place] [address] Performed By: #### 3 016-3, 40786-5 ####RODRIGUEZ LABORATORYCLIA [id number] [place] [address] [place] Calcium [Mass/Vol] 8.6 mg/dL Normal 8.5-10.2 [facility] Comment on above: Order Comment: Speci men Type: BLOOD SPECIMENOrdering Facility: [facility] Address: [address] [place] [address] Performed By: #### 3 016-3, 89700-4 ####RODRIGUEZ LABORATORYCLIA [id number] [place] [address] [place] Chloride [Moles/Vol] 93 mmol/L Low 98-107 [facility] Comment on above: Order Comment: Speci men Type: BLOOD SPECIMENOrdering Facility: [facility] Address: [address] [place] [address] Performed By: #### 3 016-3, 61553-6 ####RODRIGUEZ LABORATORYCLIA [id number] [place] [address] [place] CO2 [Moles/Vol] 29 mmol/L Normal 22-30 [facility] Comment on above: Order Comment: Yolettei men Type: BLOOD SPECIMENOrdering Facility: [facility] Address: [address] [place] [address] Performed By: #### 3 016-3, 14437-6 ####RODRIGUEZ LABORATORYCLIA [id number] [address] STATES [facility] Creatinine [Mass/Vol] 1.18 mg/dL High 0.58-0.96 [facility] Comment on above: Order Comment: Yolettei men Type: BLOOD SPECIMENOrdering Facility: [facility] Address: [address] [place] [address] Performed By: #### 3 016-3, 75109-8 ####RODRIGUEZ LABORATORYCLIA [id number] [address] Creatinine and Glomerular filtration rate.predicted panel (S/P/Bld) 52 mL/min/1.73m??? Low >=60 [facility] Comment on above: Order Comment: Lisbet men Type: BLOOD SPECIMENOrdering Facility: [facility] Address: [address] [place] [address] Result Comment: Anuj mated Glomerular Filtration Rate (eGFR) is calculated using the 2020 CKD-EPI creatinine equation. This equation utilizes serum creatinine, sex, and age as parameters. The creatinine assay has traceable calibration to isotope dilution-mass spectrometry. Refer to KDIGO guidelines for clinical interpretation. In patients with unstable renal function, e.g. those with acute kidney injury, the eGFR may not accurately reflect actual GFR. Performed By: #### 3 016-3, 31179-2 ####RODRIGUEZ LABORATORYCLIA [id number] [place] [address] [place] Glucose [Mass/Vol] 102 mg/dL High 74-99 [facility] Comment on above: Order Comment: Lisbet ojeda Type: BLOOD SPECIMENOrdering Facility: [facility] Address: [address] [place] [address] Result Comment: The [place] Diabetes [employer] (ADA) provides guidance for cutoff values for fasting glucose and random glucose. The ADA defines fasting as no caloric intake for at least 8 hours. Fasting plasma glucose results between 100 to 125 mg/dL indicate increased risk for diabetes (prediabetes).Fasting plasma glucose results greater than or equal to 126 mg/dL meet the criteria for diagnosis of diabetes. In the absence of unequivocal hyperglycemia, results should be confirmed by repeat testing. In a patient with classic symptoms of hyperglycemia or hyperglycemic crisis, random plasma glucose results greater than or equal to 200 mg/dL meet the criteria for diagnosis of diabetes.Reference: Standards of Medical Care in Diabetes 2016, [place] [employer]. Diabetes Care. 2016.39(Suppl 1). Performed By: #### 3 016-3, 47757-7 ####RODRIGUEZ LABORATORYCLIA [id number] [place] [address] [place] Potassium [Moles/Vol] 5.1 mmol/L Normal 3.7-5.1 [facility] Comment on above: Order Comment: Lisbet ojeda Type: BLOOD SPECIMENOrdering Facility: [facility] Address: [address] [place] [address] Performed By: #### 3 016-3, 79213-5 ####RODRIGUEZ LABORATORYCLIA [id number] [place] [address] [place] Sodium [Moles/Vol] 131 mmol/L Low 136-144 [facility] Comment on above: Order Comment: Lisbet ojeda Type: BLOOD SPECIMENOrdering Facility: [facility] Address: [address] [place], [place] [address] Performed By: #### 3 016-3, 51972-4 ####RODRIGUEZ LABORATORYCLIA [id number] [place] [address] [place] Urea nitrogen [Mass/Vol] 34 mg/dL High 7-21 [facility] Comment on above: Order Comment: Lisbet ojeda Type: BLOOD SPECIMENOrdering Facility: [facility] Address: [address] [place] [address] Performed By: #### 3 016-3, 34535-9 ####PHOENIX LABORATORYCLIA [id number] [place] [address] [place] CASE MANAGEMon 07-31-2024 CASE MANAGEM Normal [facility] CBC panel Auto (Bld)on 07-31 Erythrocyte distribution width (RBC) [Ratio] 16.7 % High 11.5-15.0 [facility] Comment on above: Order Comment: Speci men Type: BLOOD SPECIMENOrdering Facility: [facility] Address: [address] [place] [address] Performed By: #### 5 8410-2 ####RODRIGUEZ LABORATORYCLIA [id number] [address] Hematocrit (Bld) [Volume fraction] 31.8 % Low 36.0-46.0 [facility] Comment on above: Order Comment: Speci men Type: BLOOD SPECIMENOrdering Facility: [facility] Address: [address] [place] [address] Performed By: #### 5 8410-2 ####PHOENIX LABORATORYCLIA [id number] [address] [place] Hemoglobin (Bld) [Mass/Vol] 10.0 g/dL Low 11.5-15.5 [facility] Comment on above: Order Comment: Speci men Type: BLOOD SPECIMENOrdering Facility: [facility] Address: [address] [place] [address] Performed By: #### 5 8410-2 ####RODRIGUEZ LABORATORYCLIA [id number] [address] STATES [facility] MCH (RBC) [Entitic mass] 24.9 pg Low 26.0-34.0 [facility] Comment on above: Order Comment: Speci men Type: BLOOD SPECIMENOrdering Facility: [facility] Address: [address] [place] [address] Performed By: #### 5 8410-2 ####RODRIGUEZ LABORATORYCLIA [id number] [place] [address] [place] MCHC (RBC) [Mass/Vol] 31.4 g/dL Normal 30.5-36.0 [facility] Comment on above: Order Comment: Speci men Type: BLOOD SPECIMENOrdering Facility: [facility] Address: [address] [place] [address] Performed By: #### 5 8410-2 ####RODRIGUEZ LABORATORYCLIA [id number] [place] [address] [place] MCV (RBC) [Entitic vol] 79.3 fL Low 80.0-100.[address] [facility] Comment on above: Order Comment: Speci men Type: BLOOD SPECIMENOrdering Facility: [facility] Address: [address] [place] [address] Performed By: #### 5 8410-2 ####RODRIGUEZ LABORATORYCLIA [id number] [place] [address] [place] Nucleated RBC (Bld) [#/Vol] 10*3/uL Normal <0.01 [facility] Comment on above: Order Comment: Speci men Type: BLOOD SPECIMENOrdering Facility: [facility] Address: [address] [place] [address] Performed By: #### 5 8410-2 ####RODRIGUEZ LABORATORYCLIA [id number] [place] [address] [place] Platelet mean volume (Bld) [Entitic vol] 8.6 fL Low 9.0-12.7 [facility] Comment on above: Order Comment: Speci men Type: BLOOD SPECIMENOrdering Facility: [facility] Address: [address] [place] [address] Performed By: #### 5 8410-2 ####RODRIGUEZ LABORATORYCLIA [id number] [place] [address] [place] Platelets (Bld) [#/Vol] 276 10*3/uL Normal 150-400 [facility] Comment on above: Order Comment: Speci men Type: BLOOD SPECIMENOrdering Facility: [facility] Address: [address] [place] [address] Performed By: #### 5 8410-2 ####RODRIUGEZ LABORATORYCLIA [id number] [address] [place] RBC (Bld) [#/Vol] 4.01 10*6/uL Normal 3.90-5.20 [facility] Comment on above: Order Comment: Speci men Type: BLOOD SPECIMENOrdering Facility: [facility] Address: [address] [place] [address] Performed By: #### 5 8410-2 ####PHOENIX LABORATORYCLIA [id number] [address] [place] WBC (Bld) [#/Vol] 9.23 10*3/uL Normal 3.70-11.00 [facility] Comment on above: Order Comment: Speci men Type: BLOOD SPECIMENOrdering Facility: [facility] Address: [address] [place] [address] Performed By: #### 5 8410-2 ####PHOENIX LABORATORYCLIA [id number] [address] CONSULT PROGon 07-31-2024 CONSULT [facility] Normal [facility] CONS[facility] CONSULT [facility] Normal [facility] CONSULT [facility] SerPl-mCncon 07-31-20 24 Cortisol [Mass/Vol] 19.8 ug/dL High 4.8-19.5 [facility] Comment on above: Order Comment: Speci men Type: BLOOD SPECIMENOrdering Facility: [facility] Address: [address] [place] [address] Result Comment: Prov ided reference range is from 6-10 AM sample collection time.Cortisol Reference Range: 6-10 AM = 4.8-19.5 ug/dL, 4-8 PM = 2.5-11.9 ug/dL Performed By: #### 3 024-7, 2143-6 ####[facility] LABCLIA [id number] [address] [place] NURSING [facility]on 07-31-[facility] SerPl-mCncon 024 Free T4 [Mass/Vol] 1.1 ng/dL Normal 0.9-1.7 [facility] Comment on above: Order Comment: Speci men Type: BLOOD SPECIMENOrdering Facility: [facility] Address: [address] [place] [address] Performed By: #### 3 024-7, 2143-6 ####[facility] LABCLIA [id number] [facility] [place] [address] [place] THERAPY NTon 07-31-2024 THERAPY NT Normal [facility] THERAPY NT Normal [facility] THERAPY NT Normal [facility] THERAPY NT Normal [facility] TSH SerPl-aCncon 07-31-2024 TSH Qn 1.240 m[IU]/L Normal 0.270-4.200 [facility] Comment on above: Order Comment: Speci men Type: BLOOD SPECIMENOrdering Facility: [facility] Address: [address] [place] [address] Performed By: #### 3 016-3, 37506-5 ####[facility] LABORATORYCLIA [id number] [place] [address] [place] US KIDNEY/BLADDERon 07-31-20 US KIDNEY/BLADDER Normal [facility] Urinalysis complete panel (U )on 07-31-2024 Bilirubin Ql (U) Negative Normal Negative [facility] Comment on above: Order Comment: Speci men Type: URINE SPECIMENOrdering Facility: [facility] Address: [address] [place] [address] Performed By: #### 2 4356-8 ####[facility] LABORATORYCLIA [id number] [place] [address] [place] Clarity (Unsp spec) Clear Normal Clear [facility] Comment on above: Order Comment: Speci men Type: URINE SPECIMENOrdering Facility: [facility] Address: [address] [place] [address] Performed By: #### 2 4356-8 ####[facility] LABORATORYCLIA [id number] [address] [place] Color (U) Yellow Normal Yellow [facility] Comment on above: Order Comment: Speci men Type: URINE SPECIMENOrdering Facility: [facility] Address: [address] [place] [address] Performed By: #### 2 4356-8 ####[facility] LABORATORYCLIA [id number] [address] Epithelial cells LM.HPF (Urine sed) [#/Area] Moderate Normal [facility] Comment on above: Order Comment: Speci men Type: URINE SPECIMENOrdering Facility: [facility] Address: [address] [place] [address] Performed By: #### 2 4356-8 ####[facility] LABORATORYCLIA [id number] [address] [place] Glucose Test strip (U) [Mass/Vol] Negative Normal Negative [facility] Comment on above: Order Comment: Speci men Type: URINE SPECIMENOrdering Facility: [facility] Address: [address] [place] [address] Performed By: #### 2 4356-8 ####R[facility] LABORATORYCLIA [id number] [address] STATES [facility] Hemoglobin Ql (U) Trace Abnormal Negative [facility] Comment on above: Order Comment: Speci men Type: URINE SPECIMENOrdering Facility: [facility] Address: [address] [place] [address] Performed By: #### 2 4356-8 ####[facility] LABORATORYCLIA [id number] [address] Ketones Ql (U) Negative Normal Negative [facility] Comment on above: Order Comment: Speci men Type: URINE SPECIMENOrdering Facility: [facility] Address: [address] [place] [address] Performed By: #### 2 4356-8 ####[facility] LABORATORYCLIA [id number] [address] Leukocyte esterase Test strip Ql (U) Negative Normal Negative [facility] Comment on above: Order Comment: Speci men Type: URINE SPECIMENOrdering Facility: [facility] Address: [address] [place] [address] Performed By: #### 2 4356-8 ####R[facility] LABORATORYCLIA [id number] [place] [address] [place] Nitrite Ql (U) Negative Normal Negative [facility] Comment on above: Order Comment: Speci men Type: URINE SPECIMENOrdering Facility: [facility] Address: [address] [place] [address] Performed By: #### 2 4356-8 ####RODR[facility] LABORATORYCLIA [id number] [place] [address] [facility] [place] pH (U) 6.5 [pH] Normal 5.0-8.0 [facility] Comment on above: Order Comment: Speci men Type: URINE SPECIMENOrdering Facility: [facility] Address: [address] [place] [address] Performed By: #### 2 4356-8 ####RODRIG[facility] LABORATORYCLIA [id number] [address] [place] Protein (U) [Mass/Vol] 1+ Abnormal Negative [facility] Comment on above: Order Comment: Speci men Type: URINE SPECIMENOrdering Facility: [facility] Address: [address] [place] [address] Performed By: #### 2 4356-8 ####[facility] LABORATORYCLIA [id number] [place] [address] [place] RBC LM.HPF (Urine sed) [#/Area] 0-3 /HPF Normal 0-3 /HPF [facility] Comment on above: Order Comment: Speci men Type: URINE SPECIMENOrdering Facility: [facility] Address: [address] [place] [address] Performed By: #### 2 4356-8 ####R[facility] LABORATORYCLIA [id number] [address] [place] Specific gravity (U) [Rel density] 1.010 Normal 1.005-1.030 [facility] Comment on above: Order Comment: Speci men Type: URINE SPECIMENOrdering Facility: [facility] Address: [address] [place] [address] Performed By: #### 2 4356-8 ####[facility] LABORATORYCLIA [id number] [address] Urobilinogen Ql (U) 0.2 EU/dL Normal 0.2-1.0 EU/dL [facility] Comment on above: Order Comment: Speci men Type: URINE SPECIMENOrdering Facility: [facility] Address: [address] [place] [address] Performed By: #### 2 4356-8 ####[facility] LABORATORYCLIA [id number] [address] WBC LM.HPF (Urine sed) [#/Area] 0-5 /HPF Normal 0-5 /HPF [facility] Comment on above: Order Comment: Speci men Type: URINE SPECIMENOrdering Facility: [facility] Address: [address] [place] [address] Performed By: #### 2 4356-8 ####[facility] LABORATORYCLIA [id number] [address] Vancomycin [place] SerPl-mCncon 07-31-2024 Vancomycin random [Mass/Vol] 23.4 ug/mL High 10.0-20.0 [facility] Comment on above: Order Comment: Speci men Type: BLOOD SPECIMENOrdering Facility: [facility] Address: [address] [place] [address] Result Comment: Refe rence ranges and high/low indicator flags are provided as general guidelines only. The treating physician must determine appropriate target levels/dosing based on the specific clinical situation. Performed By: #### 4 091-5 ####[facility] LABORATORYCLIA [id number] [address] Vancomycin random [Mass/Vol] 30.7 ug/mL High 10.0-20.0 [facility] Comment on above: Order Comment: Speci men Type: BLOOD SPECIMENOrdering Facility: [facility] Address: [address] [place] [address] Result Comment: Refe rence ranges and high/low indicator flags are provided as general guidelines only. The treating physician must determine appropriate target levels/dosing based on the specific clinical situation. Performed By: #### 4 091-5 ####[facility] LABORATORYCLIA [id number] [place] [address] [place] Basic metabolic 2000 panelon 07-30-2024 Anion gap [Moles/Vol] 10 mmol/L Normal 8-15 [facility] Comment on above: Order Comment: Speci men Type: BLOOD SPECIMENOrdering Facility: [facility] Address: [address] [place] [address] Performed By: #### 2 4321-2 ####[facility] LABORATORYCLIA [id number] [place] [address] [place] Calcium [Mass/Vol] 8.7 mg/dL Normal 8.5-10.2 [facility] Comment on above: Order Comment: Speci men Type: BLOOD SPECIMENOrdering Facility: [facility] Address: [address] [place] [address] Performed By: #### 2 4321-2 ####[facility] LABORATORYCLIA [id number] [place] [address] [place] Chloride [Moles/Vol] 95 mmol/L Low 98-107 [facility] Comment on above: Order Comment: Speci men Type: BLOOD SPECIMENOrdering Facility: [facility] Address: [address] [place] [address] Performed By: #### 2 4321-2 ####R[facility] LABORATORYCLIA [id number] [place] [address] [place] CO2 [Moles/Vol] 26 mmol/L Normal 22-30 [facility] Comment on above: Order Comment: Speci men Type: BLOOD SPECIMENOrdering Facility: [facility] Address: [address] [place] [address] Performed By: #### 2 4321-2 ####[facility] LABORATORYCLIA [id number] [place] [address] [place] Creatinine [Mass/Vol] 0.94 mg/dL Normal 0.58-0.96 [facility] Comment on above: Order Comment: Speci men Type: BLOOD SPECIMENOrdering Facility: [facility] Address: [address] [place] [address] Performed By: #### 2 4321-2 ####RODRIGUE[facility] LABORATORYCLIA [id number] [place] [address] [place] Creatinine and Glomerular filtration rate.predicted panel (S/P/Bld) 68 mL/min/1.73m??? Normal >=60 [facility] Comment on above: Order Comment: Lisbet ojeda Type: BLOOD SPECIMENOrdering Facility: [facility] Address: [address] [place] [address] Result Comment: Anuj mated Glomerular Filtration Rate (eGFR) is calculated using the 2020 CKD-EPI creatinine equation. This equation utilizes serum creatinine, sex, and age as parameters. The creatinine assay has traceable calibration to isotope dilution-mass spectrometry. Refer to KDIGO guidelines for clinical interpretation. In patients with unstable renal function, e.g. those with acute kidney injury, the eGFR may not accurately reflect actual GFR. Performed By: #### 2 4321-2 ####RODR[facility] LABORATORYCLIA [id number] [place] [id number] [place] Glucose [Mass/Vol] 150 mg/dL High 74-99 [facility] Comment on above: Order Comment: Lisbet [facility] Type: BLOOD SPECIMENOrdering Facility: [facility] Address: [address] [place] [address] Result Comment: The [place] Diabetes Association (ADA) provides guidance for cutoff values for fasting glucose and random glucose. The ADA defines fasting as no caloric intake for at least 8 hours. Fasting plasma glucose results between 100 to 125 mg/dL indicate increased risk for diabetes (prediabetes).Fasting plasma glucose results greater than or equal to 126 mg/dL meet the criteria for diagnosis of diabetes. In the absence of unequivocal hyperglycemia, results should be confirmed by repeat testing. In a patient with classic symptoms of hyperglycemia or hyperglycemic crisis, random plasma glucose results greater than or equal to 200 mg/dL meet the criteria for diagnosis of diabetes.Reference: Standards of Medical Care in Diabetes 2016, [place] [employer]. Diabetes Care. 2016.39(Suppl 1). Performed By: #### 2 4321-2 ####ORDRIGUE[facility] LABORATORYCLIA [id number] [place] [address] [place] Potassium [Moles/Vol] 4.5 mmol/L Normal 3.7-5.1 [facility] Comment on above: Order Comment: Speci men Type: BLOOD SPECIMENOrdering Facility: [facility] Address: [address] [place] [address] Performed By: #### 2 4321-2 ####[facility] LABORATORYCLIA [id number] [address] Sodium [Moles/Vol] 131 mmol/L Low 136-144 [facility] Comment on above: Order Comment: Speci men Type: BLOOD SPECIMENOrdering Facility: [facility] Address: [address] [place] [address] Performed By: #### 2 4321-2 ####R[facility] LABORATORYCLIA [id number] [address] [place] Urea nitrogen [Mass/Vol] 27 mg/dL High 7-21 [facility] Comment on above: Order Comment: Speci men Type: BLOOD SPECIMENOrdering Facility: [facility] Address: [address] [place] [address] Performed By: #### 2 4321-2 ####R[facility] LABORATORYCLIA [id number] [place] [address] [place] CBC panel Auto (Bld)on 07-30 Erythrocyte distribution width (RBC) [Ratio] 16.8 % High 11.5-15.0 [facility] Comment on above: Order Comment: Speci men Type: BLOOD SPECIMENOrdering Facility: [facility] Address: [address] [place] [address] Performed By: #### 5 8410-2 ####R[facility] LABORATORYCLIA [id number] [address] [place] Hematocrit (Bld) [Volume fraction] 31.3 % Low 36.0-46.0 [facility] Comment on above: Order Comment: Speci men Type: BLOOD SPECIMENOrdering Facility: [facility] Address: [address] [place] [address] Performed By: #### 5 8410-2 ####R[facility] LABORATORYCLIA [id number] [address] [place] Hemoglobin (Bld) [Mass/Vol] 9.8 g/dL Low 11.5-15.5 [facility] Comment on above: Order Comment: Speci men Type: BLOOD SPECIMENOrdering Facility: [facility] Address: [address] [place] [address] Performed By: #### 5 8410-2 ####RODRIGUE[facility] LABORATORYCLIA [id number] [address] STATES [facility] MCH (RBC) [Entitic mass] 25.0 pg Low 26.0-34.0 [facility] Comment on above: Order Comment: Speci men Type: BLOOD SPECIMENOrdering Facility: [facility] Address: [address] [place] [address] Performed By: #### 5 8410-2 ####[facility] LABORATORYCLIA [id number] [address] MCHC (RBC) [Mass/Vol] 31.3 g/dL Normal 30.5-36.0 [facility] Comment on above: Order Comment: Speci men Type: BLOOD SPECIMENOrdering Facility: [facility] Address: [address] [place] [address] Performed By: #### 5 8410-2 ####[facility] LABORATORYCLIA [id number] [address] MCV (RBC) [Entitic vol] 79.8 fL Low 80.0-100.[address] [facility] Comment on above: Order Comment: Speci men Type: BLOOD SPECIMENOrdering Facility: [facility] Address: [address] [place] [address] Performed By: #### 5 8410-2 ####[facility] LABORATORYCLIA [id number] [address] Nucleated RBC (Bld) [#/Vol] 10*3/uL Normal <0.01 [facility] Comment on above: Order Comment: Speci men Type: BLOOD SPECIMENOrdering Facility: [facility] Address: [address] [place] [address] Performed By: #### 5 8410-2 ####[facility] LABORATORYCLIA [id number] [address] [place] Platelet mean volume (Bld) [Entitic vol] 8.3 fL Low 9.0-12.7 [facility] Comment on above: Order Comment: Speci men Type: BLOOD SPECIMENOrdering Facility: [facility] Address: [address] [place] [address] Performed By: #### 5 8410-2 ####RODRIGUE[facility] LABORATORYCLIA [id number] [place] [address] [place] Platelets (Bld) [#/Vol] 254 10*3/uL Normal 150-400 [facility] Comment on above: Order Comment: Speci men Type: BLOOD SPECIMENOrdering Facility: [facility] Address: [address] [place] [address] Performed By: #### 5 8410-2 ####[facility] LABORATORYCLIA [id number] [place] [address] [place] RBC (Bld) [#/Vol] 3.92 10*6/uL Normal 3.90-5.20 [facility] Comment on above: Order Comment: Speci men Type: BLOOD SPECIMENOrdering Facility: [facility] Address: [address] [place] [address] Performed By: #### 5 8410-2 ####[facility] LABORATORYCLIA [id number] [place] [address] [place] WBC (Bld) [#/Vol] 9.67 10*3/uL Normal 3.70-11.00 [facility] Comment on above: Order Comment: Speci men Type: BLOOD SPECIMENOrdering Facility: [facility] Address: [address] [place] [address] Performed By: #### 5 8410-2 ####[facility] LABORATORYCLIA [id number] [address] [place] CONSULT PROGon 07-30-2024 CONSULT PROG Normal [facility] CBC panel Auto (Bld)on 07-29 Erythrocyte distribution width (RBC) [Ratio] 16.5 % High 11.5-15.0 [facility] Comment on above: Order Comment: Speci men Type: BLOOD SPECIMENOrdering Facility: [facility] Address: [address] [place] [address] Performed By: #### 5 8410-2 ####RODRIG[facility] LABORATORYCLIA [id number] [address] Hematocrit (Bld) [Volume fraction] 30.6 % Low 36.0-46.0 [facility] Comment on above: Order Comment: Speci men Type: BLOOD SPECIMENOrdering Facility: [facility] Address: [address] [place] [address] Performed By: #### 5 8410-2 ####R[facility]RIG[facility] LABORATORYCLIA [id number] [address] [place] Hemoglobin (Bld) [Mass/Vol] 9.6 g/dL Low 11.5-15.5 [facility] Comment on above: Order Comment: Speci men Type: BLOOD SPECIMENOrdering Facility: [facility] Address: [address] [place] [address] Performed By: #### 5 8410-2 ####R[facility] LABORATORYCLIA [id number] [address] MCH (RBC) [Entitic mass] 24.6 pg Low 26.0-34.0 [facility] Comment on above: Order Comment: Speci men Type: BLOOD SPECIMENOrdering Facility: [facility] Address: [address] [place] [address] Performed By: #### 5 8410-2 ####R[facility] LABORATORYCLIA [id number] [address] [place] MCHC (RBC) [Mass/Vol] 31.4 g/dL Normal 30.5-36.0 [facility] Comment on above: Order Comment: Speci men Type: BLOOD SPECIMENOrdering Facility: [facility] Address: [address] [place] [address] Performed By: #### 5 8410-2 ####RODRIG[facility] LABORATORYCLIA [id number] [address] MCV (RBC) [Entitic vol] 78.5 fL Low 80.0-100.0 [facility] Comment on above: Order Comment: Speci men Type: BLOOD SPECIMENOrdering Facility: [facility] Address: [address] [place] [address] Performed By: #### 5 8410-2 ####RODRIGUE[facility] LABORATORYCLIA [id number] [place] [address] [place] Nucleated RBC (Bld) [#/Vol] 10*3/uL Normal <0.01 [facility] Comment on above: Order Comment: Speci men Type: BLOOD SPECIMENOrdering Facility: [facility] Address: [address] [place] [address] Performed By: #### 5 8410-2 ####RODRIGUE[facility] LABORATORYCLIA [id number] [place] [address] [place] Platelet mean volume (Bld) [Entitic vol] 8.4 fL Low 9.0-12.7 [facility] Comment on above: Order Comment: Speci men Type: BLOOD SPECIMENOrdering Facility: [facility] Address: [address] [place] [address] Performed By: #### 5 8410-2 ####RODRIG[facility] LABORATORYCLIA [id number] [address] [place] Platelets (Bld) [#/Vol] 319 10*3/uL Normal 150-400 [facility] Comment on above: Order Comment: Speci men Type: BLOOD SPECIMENOrdering Facility: [facility] Address: [address] [place] [address] Performed By: #### 5 8410-2 ####RODRIGUE[facility] LABORATORYCLIA [id number] [place] [address] [place] RBC (Bld) [#/Vol] 3.90 10*6/uL Normal 3.90-5.20 [facility] Comment on above: Order Comment: Speci men Type: BLOOD SPECIMENOrdering Facility: [facility] Address: [address] [place] [address] Performed By: #### 5 8410-2 ####RODRIGUE[facility] LABORATORYCLIA [id number] [place] [address] [place] WBC (Bld) [#/Vol] 10.47 10*3/uL Normal 3.70-11.00 [facility] Comment on above: Order Comment: Speci men Type: BLOOD SPECIMENOrdering Facility: [facility] Address: [address] [place] [address] Performed By: #### 5 8410-2 ####[facility] LABORATORYCLIA [id number] [place] [address] [place] CONSULTon 07-29-2024 CONSULT Normal [facility] CONSULT PROGon 07-29-2024 CONSULT PROG Normal [facility] Comprehensive metabolic 2000 panelon 07-29-2024 Albumin [Mass/Vol] 2.7 g/dL Low 3.9-4.9 [facility] Comment on above: Order Comment: Speci men Type: BLOOD SPECIMENOrdering Facility: [facility] Address: [address] [place] [address] Performed By: #### 5 0190-8, 6-4, 05310-6 ####RODRIG[facility] LABORATORYCLIA [id number] [place] [address] [place] ALP [Catalytic activity/Vol] 122 U/L Normal 34-123 [facility] Comment on above: Order Comment: Speci men Type: BLOOD SPECIMENOrdering Facility: [facility] Address: [address] [place] [address] Performed By: #### 5 0190-8, 2275-4, 25958-5 ####RODRIG[facility] LABORATORYCLIA [id number] [place] [id number] [place] ALT [Catalytic activity/Vol] 8 U/L Normal 7-38 [facility] Comment on above: Order Comment: Speci men Type: BLOOD SPECIMENOrdering Facility: [facility] Address: [address] [place] [address] Performed By: #### 5 0190-8, 2275-4, 80075-3 ####RODRIG[facility] LABORATORYCLIA [id number] [place] [id number] [place] Anion gap [Moles/Vol] 10 mmol/L Normal 8-15 [facility] Comment on above: Order Comment: Speci men Type: BLOOD SPECIMENOrdering Facility: [facility] Address: [address] [place] [address], [place] [address] Performed By: #### 5 0190-8, 4, 80064-5 ####RODRIGUE[facility] LABORATORYCLIA [id number] [place] [address] [place] AST [Catalytic activity/Vol] 13 U/L Normal 13-35 [facility] Comment on above: Order Comment: Speci men Type: BLOOD SPECIMENOrdering Facility: [facility] Address: [facility] [place] [address] Performed By: #### 5 0190-8, 2275-12, ####RODRIGUE[facility] LABORATORYCLIA [id number] [place] [address] [place] Bilirubin [Mass/Vol] 0.2 mg/dL Normal 0.2-1.3 [facility] Comment on above: Order Comment: Speci men Type: BLOOD SPECIMENOrdering Facility: [facility] Address: [facility] [place] [address] Performed By: #### 5 0190-8, 2275-12, ####RODRIGUE[facility] LABORATORYCLIA [id number] [place] [address] [place] Calcium [Mass/Vol] 8.9 mg/dL Normal 8.5-10.2 [facility] Comment on above: Order Comment: Speci men Type: BLOOD SPECIMENOrdering Facility: [facility] Address: [facility] [place] [address] Performed By: #### 5 0190-8, 2275-12, ####RODRIGUE[facility] LABORATORYCLIA [id number] [place] [address] [place] Chloride [Moles/Vol] 99 mmol/L Normal 98-107 [facility] Comment on above: Order Comment: Speci men Type: BLOOD SPECIMENOrdering Facility: [facility] [facility] Address: [facility] [place] [address] Performed By: #### 5 0190-8, 2275-12, ####RODRIGUEZ LABORATORYCLIA [id number] [place] [address] [place] CO2 [Moles/Vol] 27 mmol/L Normal 22-30 [facility] Comment on above: Order Comment: Lisbet ojeda Type: BLOOD SPECIMENOrdering Facility: [facility] Address: [address] [place] [address] Performed By: #### 5 0190-8, 2275-12, ####[facility] LABORATORYCLIA [id number] [place] [address] [place] Creatinine [Mass/Vol] 0.87 mg/dL Normal 0.58-0.96 [facility] Comment on above: Order Comment: Specjohanne men Type: BLOOD SPECIMENOrdering Facility: [facility] Address: [address] [place] [address] Performed By: #### 5 0190-8, 2275-12, ####PH[facility]EN[facility] LABORATORYCLIA [id number] [address] STATES OF [facility] Creatinine and Glomerular filtration rate.predicted panel (S/P/Bld) 75 mL/min/1.73m??? Normal >=60 [facility] Comment on above: Order Comment: Lisbet ojeda Type: BLOOD SPECIMENOrdering Facility: [facility] Address: [address] [place] [address] Result Comment: Anuj mated Glomerular Filtration Rate (eGFR) is calculated using the 2020 CKD-EPI creatinine equation. This equation utilizes serum creatinine, sex, and age as parameters. The creatinine assay has traceable calibration to isotope dilution-mass spectrometry. Refer to KDIGO guidelines for clinical interpretation. In patients with unstable renal function, e.g. those with acute kidney injury, the eGFR may not accurately reflect actual GFR. Performed By: #### 5 0190-8, 2275-12, ####[facility]EN[facility] LABORATORYCLIA [id number] [place] [id number] [place] Glucose [Mass/Vol] 158 mg/dL High 74-99 [facility] Comment on above: Order Comment: Lisbet lynette Type: BLOOD SPECIMENOrdering Facility: [facility] Address: [address] [place] [address] Result Comment: The [place] Diabetes Association (ADA) provides guidance for cutoff values for fasting glucose and random glucose. The ADA defines fasting as no caloric intake for at least 8 hours. Fasting plasma glucose results between 100 to 125 mg/dL indicate increased risk for diabetes (prediabetes).Fasting plasma glucose results greater than or equal to 126 mg/dL meet the criteria for diagnosis of diabetes. In the absence of unequivocal hyperglycemia, results should be confirmed by repeat testing. In a patient with classic symptoms of hyperglycemia or hyperglycemic crisis, random plasma glucose results greater than or equal to 200 mg/dL meet the criteria for diagnosis of diabetes.Reference: Standards of Medical Care in Diabetes 2016, [place] [employer]. Diabetes Care. 2016.39(Suppl 1). Performed By: #### 5 0190-8, 2275-4, 07933-7 ####RODRIGUEZ LABORATORYCLIA [id number] [place] [address] [place] Potassium [Moles/Vol] 4.5 mmol/L Normal 3.7-5.1 [facility] Comment on above: Order Comment: Lisbet ojeda Type: BLOOD SPECIMENOrdering Facility: [facility] Address: [address] [place] [address] Performed By: #### 5 0190-8, 2275-12, 20487-8 ####RODRIGUEZ LABORATORYCLIA [id number] [place] [address] [place] Protein [Mass/Vol] 6.5 g/dL Normal 6.3-8.0 [facility] Comment on above: Order Comment: Lisbet ojeda Type: BLOOD SPECIMENOrdering Facility: [facility] Address: [address] [place] [address] Performed By: #### 5 0190-8, 2275-12, 21260-9 ####RODRIGUEZ LABORATORYCLIA [id number] [place] [address] [place] Sodium [Moles/Vol] 136 mmol/L Normal 136-144 [facility] Comment on above: Order Comment: Lisbet ojeda Type: BLOOD SPECIMENOrdering Facility: [facility] Address: [address] [place] [address] Performed By: #### 5 0190-8, 4, 07733-0 ####RODRIGUEZ LABORATORYCLIA [id number] [place] [address] [place] Urea nitrogen [Mass/Vol] 26 mg/dL High 7-21 [facility] Comment on above: Order Comment: Speci men Type: BLOOD SPECIMENOrdering Facility: [facility] Address: [address] [place] [address] Performed By: #### 5 0190-8, 2275-4, 13028-8 ####PH[facility]ENIX LABORATORYCLIA [id number] [place] [id number] [place] Ferritin SerPl-mCncon 2023 Ferritin [Mass/Vol] 115.3 ng/mL Normal 14.7-205.1 [facility] Comment on above: Order Comment: Speci men Type: BLOOD SPECIMENOrdering Facility: [facility] Address: [address] [place] [address] Performed By: #### 5 0190-8, 4, 62428-4 ####PH[facility]EN[facility] LABORATORYCLIA [id number] [place] [id number] [place] Iron and Iron binding capaci ty panelon 07-29-2024 Iron [Mass/Vol] 26 ug/dL Low 41-186 [facility] Comment on above: Order Comment: Speci men Type: BLOOD SPECIMENOrdering Facility: [facility] Address: [address] [place] [address] Performed By: #### 5 0190-8, 4, 74081-5 ####PH[facility]ENIX LABORATORYCLIA [id number] [place] [address] [place] Iron binding capacity [Mass/Vol] 201 ug/dL Low 232-386 [facility] Comment on above: Order Comment: Speci men Type: BLOOD SPECIMENOrdering Facility: [facility] Address: [address] [place] [address] Performed By: #### 5 0190-8, 2275-12, 91345-8 ####PH[facility]EN[facility] LABORATORYCLIA [id number] [place] [id number] [place] Iron/TIBC [Molar ratio] 12.9 % Low 15.0-57.0 [facility] Comment on above: Order Comment: Speci men Type: BLOOD SPECIMENOrdering Facility: [facility] Address: [address] [place] [address] Performed By: #### 5 0190-8, 2276-4, 67178-7 ####RODRIGUEZ LABORATORYCLIA [id number] [place] [address] [place] CASE MANAGEMon 07-28-2024 CASE MANAGEM Normal [facility] CBC panel Auto (Bld)on 07-28 Erythrocyte distribution width (RBC) [Ratio] 16.6 % High 11.5-15.0 [facility] Comment on above: Order Comment: Speci men Type: BLOOD SPECIMENOrdering Facility: [facility] Address: [address] [place] [address] Performed By: #### 5 8410-2 ####RODRIGUEZ LABORATORYCLIA [id number] [address] [place] Hematocrit (Bld) [Volume fraction] 29.7 % Low 36.0-46.0 [facility] Comment on above: Order Comment: Speci men Type: BLOOD SPECIMENOrdering Facility: [facility] Address: [address] [place] [address] Performed By: #### 5 8410-2 ####RODRIGUEZ LABORATORYCLIA [id number] [place] [address] [place] Hemoglobin (Bld) [Mass/Vol] 9.2 g/dL Low 11.5-15.5 [facility] Comment on above: Order Comment: Speci men Type: BLOOD SPECIMENOrdering Facility: [facility] Address: [address] [place] [address] Performed By: #### 5 8410-2 ####RODRIGUEZ LABORATORYCLIA [id number] [place] [address] [place] MCH (RBC) [Entitic mass] 24.6 pg Low 26.0-34.0 [facility] Comment on above: Order Comment: Speci men Type: BLOOD SPECIMENOrdering Facility: [facility] Address: [address] [place] [address] Performed By: #### 5 8410-2 ####RODRIGUEZ LABORATORYCLIA [id number] [place] [address] [place] MCHC (RBC) [Mass/Vol] 31.0 g/dL Normal 30.5-36.0 [facility] Comment on above: Order Comment: Speci men Type: BLOOD SPECIMENOrdering Facility: [facility] Address: [address] [place] [address] Performed By: #### 5 8410-2 ####RODRIGUEZ LABORATORYCLIA [id number] [place] [address] [place] MCV (RBC) [Entitic vol] 79.4 fL Low 80.0-100.[address] [facility] Comment on above: Order Comment: Speci men Type: BLOOD SPECIMENOrdering Facility: [facility] Address: [address] [place] [address] Performed By: #### 5 8410-2 ####RODRIGUEZ LABORATORYCLIA [id number] [place] [address] [place] Nucleated RBC (Bld) [#/Vol] 10*3/uL Normal <0.01 [facility] Comment on above: Order Comment: Speci men Type: BLOOD SPECIMENOrdering Facility: [facility] Address: [address] [place] [address] Performed By: #### 5 8410-2 ####RODRIGUEZ LABORATORYCLIA [id number] [place] [address] [place] Platelet mean volume (Bld) [Entitic vol] 8.7 fL Low 9.0-12.7 [facility] Comment on above: Order Comment: Speci men Type: BLOOD SPECIMENOrdering Facility: [facility] Address: [address] [place] [address] Performed By: #### 5 8410-2 ####RODRIGUEZ LABORATORYCLIA [id number] [place] [address] [place] Platelets (Bld) [#/Vol] 327 10*3/uL Normal 150-400 [facility] Comment on above: Order Comment: Speci men Type: BLOOD SPECIMENOrdering Facility: [facility] Address: [address] [place] [address] Performed By: #### 5 8410-2 ####RODRIGUEZ LABORATORYCLIA [id number] [place] [address] [place] RBC (Bld) [#/Vol] 3.74 10*6/uL Low 3.90-5.20 [facility] Comment on above: Order Comment: Speci men Type: BLOOD SPECIMENOrdering Facility: [facility] Address: [address] [place] [address] Performed By: #### 5 8410-2 ####RODRIGUEZ LABORATORYCLIA [id number] [address] WBC (Bld) [#/Vol] 9.58 10*3/uL Normal 3.70-11.00 [facility] Comment on above: Order Comment: Speci men Type: BLOOD SPECIMENOrdering Facility: [facility] Address: [address] [place] [address] Performed By: #### 5 8410-2 ####RODRIGUEZ LABORATORYCLIA [id number] [address] CONSULT PROGon 07-28-2024 CONSULT PROG Normal [facility] CONSULT PRO Normal [facility] CONSULT PROG Normal [facility] CONSULT PROG Normal [facility] CONSULT PRO Normal [facility] Comprehensive metabolic 2000 panelon 07-28-2024 Albumin [Mass/Vol] 2.7 g/dL Low 3.9-4.9 [facility] Comment on above: Order Comment: Speci men Type: BLOOD SPECIMENOrdering Facility: [facility] Address: [address] [place] [address] Performed By: #### 2 4323-8 ####RODRIGUEZ LABORATORYCLIA [id number] [address] ALP [Catalytic activity/Vol] 122 U/L Normal 34-123 [facility] Comment on above: Order Comment: Speci men Type: BLOOD SPECIMENOrdering Facility: [facility] Address: [address] [place] [address] Performed By: #### 2 4323-8 ####RODRIGUEZ LABORATORYCLIA [id number] [place] [address] [place] ALT [Catalytic activity/Vol] 6 U/L Low 7-38 [facility] Comment on above: Order Comment: Speci men Type: BLOOD SPECIMENOrdering Facility: [facility] Address: [address] [place] [address] Performed By: #### 2 4323-8 ####RODRIGUEZ LABORATORYCLIA [id number] [place] [address] [place] Anion gap [Moles/Vol] 11 mmol/L Normal 8-15 [facility] Comment on above: Order Comment: Speci men Type: BLOOD SPECIMENOrdering Facility: [facility] Address: [address] [place] [address] Performed By: #### 2 4323-8 ####RODRIGUEZ LABORATORYCLIA [id number] [address] AST [Catalytic activity/Vol] 15 U/L Normal 13-35 [facility] Comment on above: Order Comment: Speci men Type: BLOOD SPECIMENOrdering Facility: [facility] Address: [address] [place] [address] Performed By: #### 2 4323-8 ####RODRIGUEZ LABORATORYCLIA [id number] [place] [address] [place] Bilirubin [Mass/Vol] 0.2 mg/dL Normal 0.2-1.3 [facility] Comment on above: Order Comment: Speci men Type: BLOOD SPECIMENOrdering Facility: [facility] Address: [address] [place] [address] Performed By: #### 2 4323-8 ####RODRIGUEZ LABORATORYCLIA [id number] [place] [address] [place] Calcium [Mass/Vol] 8.9 mg/dL Normal 8.5-10.2 [facility] Comment on above: Order Comment: Speci men Type: BLOOD SPECIMENOrdering Facility: [facility] Address: [address] [place] [address] Performed By: #### 2 4323-8 ####RODRIGUEZ LABORATORYCLIA [id number] [place] [address] [place] Chloride [Moles/Vol] 99 mmol/L Normal 98-107 [facility] Comment on above: Order Comment: Speci men Type: BLOOD SPECIMENOrdering Facility: [facility] Address: [address] [place] [address] Performed By: #### 2 4323-8 ####RODRIGUEZ LABORATORYCLIA [id number] [place] [address] [place] CO2 [Moles/Vol] 24 mmol/L Normal 22-30 [facility] Comment on above: Order Comment: Speci men Type: BLOOD SPECIMENOrdering Facility: [facility] Address: [address] [place] [address] Performed By: #### 2 4323-8 ####RODRIGUEZ LABORATORYCLIA [id number] [address] [place] Creatinine [Mass/Vol] 0.86 mg/dL Normal 0.58-0.96 [facility] Comment on above: Order Comment: Speci men Type: BLOOD SPECIMENOrdering Facility: [facility] Address: [address] [place] [address] Performed By: #### 2 4323-8 ####RODRIGUEZ LABORATORYCLIA [id number] [address] Creatinine and Glomerular filtration rate.predicted panel (S/P/Bld) 76 mL/min/1.73m??? Normal >=60 [facility] Comment on above: Order Comment: Lisbet lynette Type: BLOOD SPECIMENOrdering Facility: [facility] Address: [address] [place] [address] Result Comment: Anuj mated Glomerular Filtration Rate (eGFR) is calculated using the 2020 CKD-EPI creatinine equation. This equation utilizes serum creatinine, sex, and age as parameters. The creatinine assay has traceable calibration to isotope dilution-mass spectrometry. Refer to KDIGO guidelines for clinical interpretation. In patients with unstable renal function, e.g. those with acute kidney injury, the eGFR may not accurately reflect actual GFR. Performed By: #### 2 4323-8 ####RODRIGUEZ LABORATORYCLIA [id number] [place] [address] [place] Glucose [Mass/Vol] 151 mg/dL High 74-99 [facility] Comment on above: Order Comment: Lisbet ojeda Type: BLOOD SPECIMENOrdering Facility: [facility] Address: [address] [place] [address] Result Comment: The [place] Diabetes Association (ADA) provides guidance for cutoff values for fasting glucose and random glucose. The ADA defines fasting as no caloric intake for at least 8 hours. Fasting plasma glucose results between 100 to 125 mg/dL indicate increased risk for diabetes (prediabetes).Fasting plasma glucose results greater than or equal to 126 mg/dL meet the criteria for diagnosis of diabetes. In the absence of unequivocal hyperglycemia, results should be confirmed by repeat testing. In a patient with classic symptoms of hyperglycemia or hyperglycemic crisis, random plasma glucose results greater than or equal to 200 mg/dL meet the criteria for diagnosis of diabetes.Reference: Standards of Medical Care in Diabetes 2016, [place] [employer]. Diabetes Care. 2016.39(Suppl 1). Performed By: #### 2 4323-8 ####[facility]EN[facility] LABORATORYCLIA [id number] [place] [address] [place] Potassium [Moles/Vol] 4.8 mmol/L Normal 3.7-5.1 [facility] Comment on above: Order Comment: Lisbet ojeda Type: BLOOD SPECIMENOrdering Facility: [facility] Address: [address] [place] [address] Performed By: #### 2 4323-8 ####RODRIGUEZ LABORATORYCLIA [id number] [place] [address] [place] Protein [Mass/Vol] 6.3 g/dL Normal 6.3-8.0 [facility] Comment on above: Order Comment: Lisbet ojeda Type: BLOOD SPECIMENOrdering Facility: [facility] Address: [address] [place] [address] Performed By: #### 2 4323-8 ####RODRIGUEZ LABORATORYCLIA [id number] [place] [address] [place] Sodium [Moles/Vol] 134 mmol/L Low 136-144 [facility] Comment on above: Order Comment: Lisbet ojeda Type: BLOOD SPECIMENOrdering Facility: [facility] Address: [address] [place] [address] Performed By: #### 2 4323-8 ####RODRIGUEZ LABORATORYCLIA [id number] [place] [address] [place] Urea nitrogen [Mass/Vol] 25 mg/dL High 03-26 [facility] Comment on above: Order Comment: Speci men Type: BLOOD SPECIMENOrdering Facility: [facility] Address: [address] [place] [address] Performed By: #### 2 4323-8 ####RODRIGUEZ LABORATORYCLIA [id number] [place] [id number] [place] Vancomycin [place]averly SerPl-mCncon 07-28-2024 Vancomycin random [Mass/Vol] 25.5 ug/mL High 10.0-20.0 [facility] Comment on above: Order Comment: Speci men Type: BLOOD SPECIMENOrdering Facility: [facility] Address: [address] [place] [address] Result Comment: Refe rence ranges and high/low indicator flags are provided as general guidelines only. The treating physician must determine appropriate target levels/dosing based on the specific clinical situation. Performed By: #### 4 091-5 ####RODRIGUEZ LABORATORYCLIA [id number] [address] [place] CASE MANAGEMon 07-27-2024 CASE MANAGE Normal [facility] CASE MGT INIT ASSESon 2023 CASE MGT INIT [facility] CBC panel Auto (Bld)on 07-27 Erythrocyte distribution width (RBC) [Ratio] 16.6 % High 11.5-15.0 [facility] Comment on above: Order Comment: Speci men Type: BLOOD SPECIMENOrdering Facility: [facility] Address: [address] [place] [address] Performed By: #### 5 8410-2 ####RODRIGUEZ LABORATORYCLIA [id number] [address] [place] Hematocrit (Bld) [Volume fraction] 28.3 % Low 36.0-46.0 [facility] Comment on above: Order Comment: Speci men Type: BLOOD SPECIMENOrdering Facility: [facility] Address: [address] [place] [address] Performed By: #### 5 8410-2 ####RODRIGUEZ LABORATORYCLIA [id number] [address] Hemoglobin (Bld) [Mass/Vol] 8.7 g/dL Low 11.5-15.5 [facility] Comment on above: Order Comment: Speci men Type: BLOOD SPECIMENOrdering Facility: [facility] Address: [address] [place] [address] Performed By: #### 5 8410-2 ####RODRIGUEZ LABORATORYCLIA [id number] [address] MCH (RBC) [Entitic mass] 24.9 pg Low 26.0-34.0 [facility] Comment on above: Order Comment: Speci men Type: BLOOD SPECIMENOrdering Facility: [facility] Address: [address] [place] [address] Performed By: #### 5 8410-2 ####RODRIGUEZ LABORATORYCLIA [id number] [address] MCHC (RBC) [Mass/Vol] 30.7 g/dL Normal 30.5-36.0 [facility] Comment on above: Order Comment: Speci men Type: BLOOD SPECIMENOrdering Facility: [facility] Address: [address] [place] [address] Performed By: #### 5 8410-2 ####RODRIGUEZ LABORATORYCLIA [id number] [address] MCV (RBC) [Entitic vol] 81.1 fL Normal 80.0-100.0 [facility] Comment on above: Order Comment: Speci men Type: BLOOD SPECIMENOrdering Facility: [facility] Address: [address] [place] [address] Performed By: #### 5 8410-2 ####RODRIGUEZ LABORATORYCLIA [id number] [address] Nucleated RBC (Bld) [#/Vol] 10*3/uL Normal <0.01 [facility] Comment on above: Order Comment: Speci men Type: BLOOD SPECIMENOrdering Facility: [facility] Address: [address] [place] [address] Performed By: #### 5 8410-2 ####RODRIGUEZ LABORATORYCLIA [id number] [place] [id number] [place] Platelet mean volume (Bld) [Entitic vol] 8.9 fL Low 9.0-12.7 [facility] Comment on above: Order Comment: Speci men Type: BLOOD SPECIMENOrdering Facility: [facility] Address: [address] [place] [address] Performed By: #### 5 8410-2 ####RODRIGUEZ LABORATORYCLIA [id number] [place] [id number] [place] Platelets (Bld) [#/Vol] 348 10*3/uL Normal 150-400 [facility] Comment on above: Order Comment: Speci men Type: BLOOD SPECIMENOrdering Facility: [facility] Address: [address] [place], [place] [address] [address] Performed By: #### 5 8410-2 ####RODRIGUEZ LABORATORYCLIA [id number] [place] [address] [place] RBC (Bld) [#/Vol] 3.49 10*6/uL Low 3.90-5.20 [facility] Comment on above: Order Comment: Speci men Type: BLOOD SPECIMENOrdering Facility: [facility] Address: [facility] [place] [address] Performed By: #### 5 8410-2 ####RODRIGUEZ LABORATORYCLIA [id number] [place] [id number] [place] WBC (Bld) [#/Vol] 10.78 10*3/uL Normal 3.70-11.00 [facility] Comment on above: Order Comment: Speci men Type: BLOOD SPECIMENOrdering Facility: [facility] Address: [address] [place], [place] [address] [address] Performed By: #### 5 8410-2 ####RODRIGUEZ LABORATORYCLIA [id number] [place] [address] [facility] [place] CONSULTon 07-27-2024 CONSULT Normal [facility] CONSULT Normal [facility] CONSULT Normal [facility] CONSULT [facility] Comprehensive metabolic 2000 panelon 07-27-2024 Albumin [Mass/Vol] 2.8 g/dL Low 3.9-4.9 [facility] Comment on above: Order Comment: Speci men Type: BLOOD SPECIMENOrdering Facility: [facility] Address: [address] [place] [address] Performed By: #### 2 4323-8 ####RODRIGUEZ LABORATORYCLIA [id number] [place] [address] [place] ALP [Catalytic activity/Vol] 112 U/L Normal 34-123 [facility] Comment on above: Order Comment: Speci men Type: BLOOD SPECIMENOrdering Facility: [facility] Address: [address] [place] [address] Performed By: #### 2 4323-8 ####RODRIGUEZ LABORATORYCLIA [id number] [address] [place] ALT [Catalytic activity/Vol] 6 U/L Low 7-38 [facility] Comment on above: Order Comment: Speci men Type: BLOOD SPECIMENOrdering Facility: [facility] Address: [address] [place] [address] Performed By: #### 2 4323-8 ####RODRIGUEZ LABORATORYCLIA [id number] [place] [address] [facility] Anion gap [Moles/Vol] 7 mmol/L Low 8-15 [facility] Comment on above: Order Comment: Speci men Type: BLOOD SPECIMENOrdering Facility: [facility] Address: [address] [place] [address] Performed By: #### 2 4323-8 ####RODRIGUEZ LABORATORYCLIA [id number] [place] [place] [address] [place] AST [Catalytic activity/Vol] 11 U/L Low 13-35 [facility] Comment on above: Order Comment: Speci men Type: BLOOD SPECIMENOrdering Facility: [facility] Address: [address] [place] [address] Performed By: #### 2 4323-8 ####RODRIGUEZ LABORATORYCLIA [id number] [place] [address] [place] Bilirubin [Mass/Vol] 0.2 mg/dL Normal 0.2-1.3 [facility] Comment on above: Order Comment: Speci men Type: BLOOD SPECIMENOrdering Facility: [facility] Address: [address] [place] [address] Performed By: #### 2 4323-8 ####RODRIGUEZ LABORATORYCLIA [id number] [place] [address] [place] Calcium [Mass/Vol] 8.8 mg/dL Normal 8.5-10.2 [facility] Comment on above: Order Comment: Speci men Type: BLOOD SPECIMENOrdering Facility: [facility] Address: [address] [place] [address] Performed By: #### 2 4323-8 ####RODRIGUEZ LABORATORYCLIA [id number] [place] [address] [place] Chloride [Moles/Vol] 100 mmol/L Normal 98-107 [facility] Comment on above: Order Comment: Speci men Type: BLOOD SPECIMENOrdering Facility: [facility] Address: [address] [place] [address] Performed By: #### 2 4323-8 ####RODRIGUEZ LABORATORYCLIA [id number] [place] [address] [place] CO2 [Moles/Vol] 28 mmol/L Normal 22-30 [facility] Comment on above: Order Comment: Speci men Type: BLOOD SPECIMENOrdering Facility: [facility] Address: [address] [place] [address] Performed By: #### 2 4323-8 ####RODRIGUEZ LABORATORYCLIA [id number] [place] [address] [place] Creatinine [Mass/Vol] 0.88 mg/dL Normal 0.58-0.96 [facility] Comment on above: Order Comment: Speci men Type: BLOOD SPECIMENOrdering Facility: [facility] Address: [address] [place] [address] Performed By: #### 2 4323-8 ####RODRIGUEZ LABORATORYCLIA [id number] [place] [address] [place] Creatinine and Glomerular filtration rate.predicted panel (S/P/Bld) 73 mL/min/1.73m??? Normal >=60 [facility] Comment on above: Order Comment: Lisbet ojeda Type: BLOOD SPECIMENOrdering Facility: [facility] Address: [address] [place] [address] Result Comment: Anuj mated Glomerular Filtration Rate (eGFR) is calculated using the 2020 CKD-EPI creatinine equation. This equation utilizes serum creatinine, sex, and age as parameters. The creatinine assay has traceable calibration to isotope dilution-mass spectrometry. Refer to KDIGO guidelines for clinical interpretation. In patients with unstable renal function, e.g. those with acute kidney injury, the eGFR may not accurately reflect actual GFR. Performed By: #### 2 4323-8 ####RODRIGUEZ LABORATORYCLIA [id number] [place] [id number] [place] Glucose [Mass/Vol] 91 mg/dL Normal 74-99 [facility] Comment on above: Order Comment: Lisbet ojeda Type: BLOOD SPECIMENOrdering Facility: [facility] Address: [address] [place] [address] Result Comment: The [place] Diabetes Association (ADA) provides guidance for cutoff values for fasting glucose and random glucose. The ADA defines fasting as no caloric intake for at least 8 hours. Fasting plasma glucose results between 100 to 125 mg/dL indicate increased risk for diabetes (prediabetes).Fasting plasma glucose results greater than or equal to 126 mg/dL meet the criteria for diagnosis of diabetes. In the absence of unequivocal hyperglycemia, results should be confirmed by repeat testing. In a patient with classic symptoms of hyperglycemia or hyperglycemic crisis, random plasma glucose results greater than or equal to 200 mg/dL meet the criteria for diagnosis of diabetes.Reference: Standards of Medical Care in Diabetes 2016, [place] [employer]. Diabetes Care. 2016.39(Suppl 1). Performed By: #### 2 4323-8 ####RODRIGUEZ LABORATORYCLIA [id number] [place] [id number] [place] Potassium [Moles/Vol] 4.7 mmol/L Normal 3.7-5.1 [facility] Comment on above: Order Comment: Lisbet ojeda Type: BLOOD SPECIMENOrdering Facility: [facility] Address: [address] [place] [address] Performed By: #### 2 4323-8 ####RODRIGUEZ LABORATORYCLIA [id number] [place] [address] [place] Protein [Mass/Vol] 6.0 g/dL Low 6.3-8.0 [facility] Comment on above: Order Comment: Speci men Type: BLOOD SPECIMENOrdering Facility: [facility] Address: [address] [place] [address] Performed By: #### 2 4323-8 ####RODRIGUEZ LABORATORYCLIA [id number] [place] [address] [place] Sodium [Moles/Vol] 135 mmol/L Low 136-144 [facility] Comment on above: Order Comment: Speci men Type: BLOOD SPECIMENOrdering Facility: [facility] Address: [address] [place] [address] Performed By: #### 2 4323-8 ####RODRIGUEZ LABORATORYCLIA [id number] [place] [address] [place] Urea nitrogen [Mass/Vol] 28 mg/dL High 7-21 [facility] Comment on above: Order Comment: Speci men Type: BLOOD SPECIMENOrdering Facility: [facility] Address: [address] [place] [address] Performed By: #### 2 4323-8 ####RODRIGUEZ LABORATORYCLIA [id number] [address] [place] NURSING PROGon 07-27-2024 NURSING PROG Normal [facility] THERAPY NTon 07-27-2024 THERAPY NT Normal [facility] THERAPY NT Normal [facility] Urinalysis complete panel (U )on 07-27-2024 Bacteria LM.HPF (Urine sed) [#/Area] Rare Abnormal None Seen [facility] Comment on above: Order Comment: Speci men Type: URINE SPECIMENOrdering Facility: [facility] Address: [address] [place] [address] Performed By: #### 2 4356-8 ####RODRIGUEZ LABORATORYCLIA [id number] [address] [place] Bilirubin Ql (U) Negative Normal Negative [facility] Comment on above: Order Comment: Speci men Type: URINE SPECIMENOrdering Facility: [facility] Address: [address] [place] [address] Performed By: #### 2 4356-8 ####RODRIGUEZ LABORATORYCLIA [id number] [place] [address] [place] Clarity (Unsp spec) Clear Normal Clear [facility] Comment on above: Order Comment: Speci men Type: URINE SPECIMENOrdering Facility: [facility] Address: [address] [place] [address] Performed By: #### 2 4356-8 ####RODRIGUEZ LABORATORYCLIA [id number] [place] [address] [place] Color (U) Yellow Normal Yellow [facility] Comment on above: Order Comment: Speci men Type: URINE SPECIMENOrdering Facility: [facility] Address: [address] [place] [address] Performed By: #### 2 4356-8 ####RODRIGUEZ LABORATORYCLIA [id number] [place] [id number] [place] Epithelial cells LM.HPF (Urine sed) [#/Area] Few Normal [facility] Comment on above: Order Comment: Speci men Type: URINE SPECIMENOrdering Facility: [facility] Address: [address] [place] [address] Performed By: #### 2 4356-8 ####RODRIGUEZ LABORATORYCLIA [id number] [place] [id number] [place] Glucose Test strip (U) [Mass/Vol] Negative Normal Negative [facility] Comment on above: Order Comment: Speci men Type: URINE SPECIMENOrdering Facility: [facility] Address: [address] [place] [address] Performed By: #### 2 4356-8 ####RODRIGUEZ LABORATORYCLIA [id number] [place] [id number] [place] Hemoglobin Ql (U) Negative Normal Negative [facility] Comment on above: Order Comment: Speci men Type: URINE SPECIMENOrdering Facility: [facility] Address: [address] [place] [address] Performed By: #### 2 4356-8 ####RODRIGUEZ LABORATORYCLIA [id number] [place] [address] [place] Ketones Ql (U) Trace Abnormal Negative [facility] Comment on above: Order Comment: Speci men Type: URINE SPECIMENOrdering Facility: [facility] Address: [address] [place] [address] Performed By: #### 2 4356-8 ####RODRIGUEZ LABORATORYCLIA [id number] [address] [place] Leukocyte esterase Test strip Ql (U) Negative Normal Negative [facility] Comment on above: Order Comment: Speci men Type: URINE SPECIMENOrdering Facility: [facility] Address: [address] [place] [address] Performed By: #### 2 4356-8 ####RODRIGUEZ LABORATORYCLIA [id number] [address] [place] Nitrite Ql (U) Negative Normal Negative [facility] Comment on above: Order Comment: Speci men Type: URINE SPECIMENOrdering Facility: [facility] Address: [address] [place] [address] Performed By: #### 2 4356-8 ####RODRIGUEZ LABORATORYCLIA [id number] [address] [place] pH (U) 6.0 [pH] Normal 5.0-8.0 [facility] Comment on above: Order Comment: Speci men Type: URINE SPECIMENOrdering Facility: [facility] Address: [address] [place] [address] Performed By: #### 2 4356-8 ####RODRIGUEZ LABORATORYCLIA [id number] [place] [address] [place] Protein (U) [Mass/Vol] 1+ Abnormal Negative [facility] Comment on above: Order Comment: Speci men Type: URINE SPECIMENOrdering Facility: [facility] Address: [address] [place] [address] Performed By: #### 2 4356-8 ####RODRIGUEZ LABORATORYCLIA [id number] [address] RBC LM.HPF (Urine sed) [#/Area] 0-3 /HPF Normal 0-3 /HPF [facility] Comment on above: Order Comment: Speci men Type: URINE SPECIMENOrdering Facility: [facility] Address: [address] [place] [address] Performed By: #### 2 4356-8 ####RODRIGUEZ LABORATORYCLIA [id number] [place] [address] [place] Specific gravity (U) [Rel density] 1.025 Normal 1.005-1.030 [facility] Comment on above: Order Comment: Speci men Type: URINE SPECIMENOrdering Facility: [facility] Address: [address] [place] [address] Performed By: #### 2 4356-8 ####[facility] LABORATORYCLIA [id number] [address] [place] Urobilinogen Ql (U) 0.2 EU/dL Normal 0.2-1.0 EU/dL [facility] Comment on above: Order Comment: Speci men Type: URINE SPECIMENOrdering Facility: [facility] Address: [address] [place] [address] Performed By: #### 2 4356-8 ####[facility] LABORATORYCLIA [id number] [address] [place] WBC LM.HPF (Urine sed) [#/Area] 0-5 /HPF Normal 0-5 /HPF [facility] Comment on above: Order Comment: Speci men Type: URINE SPECIMENOrdering Facility: [facility] Address: [address] [place] [address] Performed By: #### 2 4356-8 ####RODRIGUEZ LABORATORYCLIA [id number] [place] [address] [place] ALLIED HEALTHon 07-26-2024 ALLIED HEALTH Normal [facility] ALLIED HEALTH Normal [facility] Bacteria Wnd Culton 07-26-20 24 Bacteria identified Cx Nom (Wound) Abnormal [facility] Comment on above: Performed By: #### 6 462-6 ####[facility] LABCLIA [id number] [facility] W22HREFOPHCGLISA V[place] [id number] [place] CBC W Auto Differential pane l (Bld)on 07-26-2024 Basophils (Bld) [#/Vol] 0.04 10*3/uL Normal <0.11 [facility] Comment on above: Order Comment: Speci men Type: BLOOD SPECIMENOrdering Facility: [facility] Address: [address] [place] [address] Performed By: #### 5 7021-8 ####RODRIGUEZ LABORATORYCLIA [id number] [place] [address] [place] Basophils/100 WBC (Bld) 0.4 % Normal [facility] Comment on above: Order Comment: Speci men Type: BLOOD SPECIMENOrdering Facility: [facility] Address: [address] [place] [address] Performed By: #### 5 7021-8 ####RODRIGUEZ LABORATORYCLIA [id number] [address] [place] Differential cell count method Nom (Bld) Auto Normal [facility] Comment on above: Order Comment: Speci men Type: BLOOD SPECIMENOrdering Facility: [facility] Address: [address] [place] [address] Performed By: #### 5 7021-8 ####RODRIGUEZ LABORATORYCLIA [id number] [place] [address] [place] Eosinophils (Bld) [#/Vol] 0.09 10*3/uL Normal <0.46 [facility] Comment on above: Order Comment: Speci men Type: BLOOD SPECIMENOrdering Facility: [facility] Address: [address] [place] [address] Performed By: #### 5 7021-8 ####RODRIGUEZ LABORATORYCLIA [id number] [address] [place] Eosinophils/100 WBC (Bld) 0.8 % Normal [facility] Comment on above: Order Comment: Speci men Type: BLOOD SPECIMENOrdering Facility: [facility] Address: [address] [place] [address] Performed By: #### 5 7021-8 ####RODRIGUEZ LABORATORYCLIA [id number] [place] [address] [place] Erythrocyte distribution width (RBC) [Ratio] 16.5 % High 11.5-15.0 [facility] Comment on above: Order Comment: Speci men Type: BLOOD SPECIMENOrdering Facility: [facility] Address: [address] [place] [address] Performed By: #### 5 7021-8 ####RODRIGUEZ LABORATORYCLIA [id number] [address] [place] Hematocrit (Bld) [Volume fraction] 31.8 % Low 36.0-46.0 [facility] Comment on above: Order Comment: Speci men Type: BLOOD SPECIMENOrdering Facility: [facility] Address: [address] [place] [address] Performed By: #### 5 7021-8 ####RODRIGUEZ LABORATORYCLIA [id number] [place] [address] [place] Hemoglobin (Bld) [Mass/Vol] 9.9 g/dL Low 11.5-15.5 [facility] Comment on above: Order Comment: Speci men Type: BLOOD SPECIMENOrdering Facility: [facility] Address: [address] [place] [address] Performed By: #### 5 7021-8 ####RODRIGUEZ LABORATORYCLIA [id number] [address] [place] Immature granulocytes (Bld) [#/Vol] 0.04 10*3/uL Normal <0.10 [facility] Comment on above: Order Comment: Speci men Type: BLOOD SPECIMENOrdering Facility: [facility] Address: [address] [place] [address] Performed By: #### 5 7021-8 ####RODRIGUEZ LABORATORYCLIA [id number] [address] Immature granulocytes/100 WBC (Bld) 0.4 % Normal [facility] Comment on above: Order Comment: Speci men Type: BLOOD SPECIMENOrdering Facility: [facility] Address: [address] [place] [address] Performed By: #### 5 7021-8 ####RODRIGUEZ LABORATORYCLIA [id number] [address] Lymphocytes (Bld) [#/Vol] 1.15 10*3/uL Normal 1.00-4.00 [facility] Comment on above: Order Comment: Speci men Type: BLOOD SPECIMENOrdering Facility: [facility] Address: [address] [place] [address] Performed By: #### 5 7021-8 ####RODRIGUEZ LABORATORYCLIA [id number] [address] Lymphocytes/100 WBC (Bld) 10.7 % Normal [facility] Comment on above: Order Comment: Speci men Type: BLOOD SPECIMENOrdering Facility: [facility] Address: [address] [place] [address] Performed By: #### 5 7021-8 ####RODRIGUEZ LABORATORYCLIA [id number] [address] STATES [facility] MCH (RBC) [Entitic mass] 25.1 pg Low 26.0-34.0 [facility] Comment on above: Order Comment: Speci men Type: BLOOD SPECIMENOrdering Facility: [facility] Address: [address] [place] [address] Performed By: #### 5 7021-8 ####RODRIGUEZ LABORATORYCLIA [id number] [address] MCHC (RBC) [Mass/Vol] 31.1 g/dL Normal 30.5-36.0 [facility] Comment on above: Order Comment: Speci men Type: BLOOD SPECIMENOrdering Facility: [facility] Address: [address] [place] [address] Performed By: #### 5 7021-8 ####RODRIGUEZ LABORATORYCLIA [id number] [address] MCV (RBC) [Entitic vol] 80.5 fL Normal 80.0-100.0 [facility] Comment on above: Order Comment: Speci men Type: BLOOD SPECIMENOrdering Facility: [facility] Address: [address] [place] [address] Performed By: #### 5 7021-8 ####RODRIGUEZ LABORATORYCLIA [id number] [place] [address] [place] Monocytes (Bld) [#/Vol] 1.09 10*3/uL High <0.87 [facility] Comment on above: Order Comment: Speci men Type: BLOOD SPECIMENOrdering Facility: [facility] Address: [address] [place] [address] Performed By: #### 5 7021-8 ####RODRIGUEZ LABORATORYCLIA [id number] [place] [address] [place] Monocytes/100 WBC (Bld) 10.1 % Normal [facility] Comment on above: Order Comment: Speci men Type: BLOOD SPECIMENOrdering Facility: [facility] Address: [address] [place] [address] Performed By: #### 5 7021-8 ####RODRIGUEZ LABORATORYCLIA [id number] [place] [address] [place] Neutrophils (Bld) [#/Vol] 8.38 10*3/uL High 1.45-7.50 [facility] Comment on above: Order Comment: Speci men Type: BLOOD SPECIMENOrdering Facility: [facility] Address: [address] [place] [address] Performed By: #### 5 7021-8 ####RODRIGUEZ LABORATORYCLIA [id number] [address] [place] Neutrophils/100 WBC (Bld) 77.6 % Normal [facility] Comment on above: Order Comment: Speci men Type: BLOOD SPECIMENOrdering Facility: [facility] Address: [address] [place] [address] Performed By: #### 5 7021-8 ####RODRIGUEZ LABORATORYCLIA [id number] [place] [address] [place] Nucleated RBC (Bld) [#/Vol] 10*3/uL Normal <0.01 [facility] Comment on above: Order Comment: Speci men Type: BLOOD SPECIMENOrdering Facility: [facility] Address: [address] [place] [address] Performed By: #### 5 7021-8 ####RODRIGUEZ LABORATORYCLIA [id number] [place] [address] [place] Nucleated RBC/100 WBC (Bld) [Ratio] 0.0 /100 WBC Normal [facility] Comment on above: Order Comment: Speci men Type: BLOOD SPECIMENOrdering Facility: [facility] Address: [address] [place] [address] Performed By: #### 5 7021-8 ####RODRIGUEZ LABORATORYCLIA [id number] [place] [address] [place] Platelet mean volume (Bld) [Entitic vol] 8.4 fL Low 9.0-12.7 [facility] Comment on above: Order Comment: Speci men Type: BLOOD SPECIMENOrdering Facility: [facility] Address: [address] [place] [address] Performed By: #### 5 7021-8 ####RODRIGUEZ LABORATORYCLIA [id number] [address] [place] Platelets (Bld) [#/Vol] 374 10*3/uL Normal 150-400 [facility] Comment on above: Order Comment: Speci men Type: BLOOD SPECIMENOrdering Facility: [facility] Address: [facility] [place] [address] Performed By: #### 5 7021-8 ####RODRIGUEZ LABORATORYCLIA [id number] [place] [address] [place] RBC (Bld) [#/Vol] 3.95 10*6/uL Normal 3.90-5.20 [facility] Comment on above: Order Comment: Speci men Type: BLOOD SPECIMENOrdering Facility: [facility] Address: [address] [place] [address] Performed By: #### 5 7021-8 ####RODRIGUEZ LABORATORYCLIA [id number] [place] [address] [place] WBC (Bld) [#/Vol] 10.79 10*3/uL Normal 3.70-11.00 [facility] Comment on above: Order Comment: Speci men Type: BLOOD SPECIMENOrdering Facility: [facility] Address: [address] [place] [address] Performed By: #### 5 7021-8 ####RODRIGUEZ LABORATORYCLIA [id number] [address] CNOVon 07-26-2024 CNOV Normal [facility] CRP SerPl-mCncon 07-26-2024 CRP [Mass/Vol] 17.0 mg/dL High <0.9 [facility] Comment on above: Order Comment: Speci men Type: BLOOD SPECIMENOrdering Facility: [facility] Address: [address] [place] [id number] Performed By: #### 2 4323-8, 53840-4, 1988-01 ####RODRIGUEZ LABORATORYCLIA [id number] [address] OF [facility] Comprehensive metabolic 2000 panelon 07-26-2024 Albumin [Mass/Vol] 3.2 g/dL Low 3.9-4.9 [facility] Comment on above: Order Comment: Speci men Type: BLOOD SPECIMENOrdering Facility: [facility] Address: [address] [address] Performed By: #### 2 4323-8, 22301-8, 1988-01 ####RODRIGUE[facility] LABORATORYCLIA [id number] [place] [address] [place] ALP [Catalytic activity/Vol] 138 U/L High 34-123 [facility] Comment on above: Order Comment: Speci men Type: BLOOD SPECIMENOrdering Facility: [facility] Address: [address] [place] [address] Performed By: #### 2 4323-8, 15107-3, 1988-01 ####R[facility]RIG[facility] LABORATORYCLIA [id number] [address] [place] ALT [Catalytic activity/Vol] 7 U/L Normal 7-38 [facility] Comment on above: Order Comment: Speci men Type: BLOOD SPECIMENOrdering Facility: [facility] Address: [address] [place] [place] [id number] Performed By: #### 2 4323-8, 88357-6, 1988-01 ####RODRIGUEZ LABORATORYCLIA [id number] [place] [address] [place] Anion gap [Moles/Vol] 9 mmol/L Normal 8-15 [facility] Comment on above: Order Comment: Speci men Type: BLOOD SPECIMENOrdering Facility: [facility] Address: [address] [place] [address] Performed By: #### 2 432-8, , 1988-01 ####RODRIGUEZ LABORATORYCLIA [id number] [place] [address] [place] AST [Catalytic activity/Vol] 12 U/L Low 13-35 [facility] Comment on above: Order Comment: Speci men Type: BLOOD SPECIMENOrdering Facility: [facility] Address: [address] [place] [address] Performed By: #### 2 4323-8, , 1988-01 ####RODRIGUEZ LABORATORYCLIA [id number] [place] [address] [place] Bilirubin [Mass/Vol] 0.3 mg/dL Normal 0.2-1.3 [facility] Comment on above: Order Comment: Speci men Type: BLOOD SPECIMENOrdering Facility: [facility] Address: [address] [place] [address] Performed By: #### 2 4323-8, , 1988-01 ####RODRIGUE[facility] LABORATORYCLIA [id number] [place] [address] [place] Calcium [Mass/Vol] 9.2 mg/dL Normal 8.5-10.2 [facility] Comment on above: Order Comment: Speci men Type: BLOOD SPECIMENOrdering Facility: [facility] [facility] Address: [address] [place] [address] Performed By: #### 2 4323-8, 44735-6, 1988-01 ####RODRIGUEZ LABORATORYCLIA [id number] [place] [address] [place] Chloride [Moles/Vol] 94 mmol/L Low 98-107 [facility] Comment on above: Order Comment: Speci men Type: BLOOD SPECIMENOrdering Facility: [facility] Address: [address] [place] [address] Performed By: #### 2 4323-8, 26939-7, 1988-01 ####RODRIGUEZ LABORATORYCLIA [id number] [place] [id number] [place] CO2 [Moles/Vol] 28 mmol/L Normal 22-30 [facility] Comment on above: Order Comment: Speci men Type: BLOOD SPECIMENOrdering Facility: [facility] Address: [address] [place] [address] Performed By: #### 2 4323-8, 87771-4, 1988-01 ####RODRIGUEZ LABORATORYCLIA [id number] [place] [address] [place] Creatinine [Mass/Vol] 0.75 mg/dL Normal 0.58-0.96 [facility] Comment on above: Order Comment: Speci men Type: BLOOD SPECIMENOrdering Facility: [facility] Address: [address] [place] [address] Performed By: #### 2 4323-8, 03419-9, 1988-01 ####RODRIGUEZ LABORATORYCLIA [id number] [address] Creatinine and Glomerular filtration rate.predicted panel (S/P/Bld) 89 mL/min/1.73m??? Normal >=60 [facility] Comment on above: Order Comment: Speci men Type: BLOOD SPECIMENOrdering Facility: [facility] Address: [address] [place] [address] Result Comment: Anuj mated Glomerular Filtration Rate (eGFR) is calculated using the 2020 CKD-EPI creatinine equation. This equation utilizes serum creatinine, sex, and age as parameters. The creatinine assay has traceable calibration to isotope dilution-mass spectrometry. Refer to KDIGO guidelines for clinical interpretation. In patients with unstable renal function, e.g. those with acute kidney injury, the eGFR may not accurately reflect actual GFR. Performed By: #### 2 4323-8, 87327-2, 1988-01 ####RODRIGUEZ LABORATORYCLIA [id number] [place] [id number] [place] Glucose [Mass/Vol] 218 mg/dL High 74-99 [facility] Comment on above: Order Comment: Lisbet lynette Type: BLOOD SPECIMENOrdering Facility: [facility] Address: [address] [place] [address] Result Comment: The [place] Diabetes Association (ADA) provides guidance for cutoff values for fasting glucose and random glucose. The ADA defines fasting as no caloric intake for at least 8 hours. Fasting plasma glucose results between 100 to 125 mg/dL indicate increased risk for diabetes (prediabetes).Fasting plasma glucose results greater than or equal to 126 mg/dL meet the criteria for diagnosis of diabetes. In the absence of unequivocal hyperglycemia, results should be confirmed by repeat testing. In a patient with classic symptoms of hyperglycemia or hyperglycemic crisis, random plasma glucose results greater than or equal to 200 mg/dL meet the criteria for diagnosis of diabetes.Reference: Standards of Medical Care in Diabetes 2016, [place] Diabetes Association. Diabetes Care. 2016.39(Suppl 1). Performed By: #### 2 4323-8, 12905-0, 1988-01 ####RODRIGUEZ LABORATORYCLIA [id number] [place] [address] [place] Potassium [Moles/Vol] 4.2 mmol/L Normal 3.7-5.1 [facility] Comment on above: Order Comment: Lisbet lynette Type: BLOOD SPECIMENOrdering Facility: [facility] Address: [address] [place] [address] Performed By: #### 2 4323-8, 55453-3, 1988-01 ####RODRIGUEZ LABORATORYCLIA [id number] [place] [id number] [place] Protein [Mass/Vol] 6.8 g/dL Normal 6.3-8.0 [facility] Comment on above: Order Comment: Lisbet lynette Type: BLOOD SPECIMENOrdering Facility: [facility] Address: [address] [place] [address] Performed By: #### 2 4323-8, 20903-1, 1988-01 ####RODRIGUEZ LABORATORYCLIA [id number] [place] [address] [place] Sodium [Moles/Vol] 131 mmol/L Low 136-144 [facility] Comment on above: Order Comment: Speci men Type: BLOOD SPECIMENOrdering Facility: [facility] Address: [address] [place] [address] Performed By: #### 2 4323-8, 33406-6, 1988-01 ####RODRIGUEZ LABORATORYCLIA [id number] [address] STATES OF [facility] Urea nitrogen [Mass/Vol] 25 mg/dL High 7- [facility] Comment on above: Order Comment: Speci men Type: BLOOD SPECIMENOrdering Facility: [facility] Address: [address] [place] [address] Performed By: #### 2 4323-8, 46439-2, 1988-01 ####RODRIGUEZ LABORATORYCLIA [id number] [place] [address] [place] ED PROV NOTEon 07-26-2024 ED PROV NOTE Normal [facility] ED Triage Noteon 07-26-2024 ED Triage Note Normal [facility] ESR Westergren method (Bld) [Velocity]on 07-26-2024 ESR (Bld) [Velocity] 102 mm/h High 0-20 [facility] Comment on above: Order Comment: Speci men Type: BLOOD SPECIMENOrdering Facility: [facility] Address: [address] [place] [address] Performed By: #### 4 537-7 ####[facility] LABCLIA [id number] [facility] [id number] VIL[place] [id number] [facility] [place] HISTORY PHYSICALon HISTORY PHYSICAL Normal [facility] MRI ANKLE WO IVCON LTon 07-08 MRI ANKLE WO IVCON LT Normal [facility] NT-proBNP SerPl-mCncon 07-26 Natriuretic peptide.B prohormone N-Terminal [Mass/Vol] 4860 pg/mL High <125 [facility] Comment on above: Order Comment: Speci men Type: BLOOD SPECIMENOrdering Facility: [facility] Address: [address] [place] [address] Performed By: #### 2 4323-8, 06552-4, 1988-01 ####RODRIGUEZ LABORATORYCLIA [id number] [place] [id number] [facility] [place] SEPSIS LACTATE W/ REFLEX (IN ITIAL)on 07-26-2024 Lactate [Moles/Vol] 0.7 mmol/L Normal 0.5-2.0 [facility] Comment on above: Order Comment: Speci men Type: BLOOD SPECIMENOrdering Facility: [facility] Address: [facility] [place] [address] Performed By: #### S LACTR ####[facility] LABORATORYCLIA [id number] [place] [id number] [facility] XR FOOT 3V AP/LAT/OBL LTon 1 09-25-2023 XR FOOT 3V AP/LAT/OBL LT Normal [facility] 07-20-2024 [facility] 07-14-2024 [facility] CNOVon 07-11-2024 [facility] CNNURSEon [facility]24 [facility] Visit (FAMDNA) SHADE BRAMBILA ([id number]) 1960 F Date Time Provider Department 07/07/24 2:00 PM [facility] During your visit today, we recorded the following information about you: Allergies As of Date: 07/07/2024 Noted Allergy Reaction AMOXICILLIN 11/26/2022 16 - Unknown Comments: Patient does not remember reaction SILICONE 06/22/2024 2 - Rash 9 - Itching Comments: Dressing with silicone border caused inflammation where the bandage was placed CODEINE 09/26/2022 5 - Intolerance Comments: Patient states Makes her Hyper MORPHINE 08/17/2023 5 - Intolerance Comments: Difficulty waking up / groggy Date Reviewed: 07/07/2024 Reviewed by: Ayan Wallis APRN.HEEL CURVER - Fully Assessed Primary Visit Diagnosis:B12 deficiency [E53.8] Prescriptions as of 07/07/2024 - metFORMIN (GLUCOPHAGE) 1,000 mg tablet Take 1 tablet by mouth daily with lunch. - insulin regular human, CONCENTRATED 500 UNIT/ML, (HUMULIN R) 500 unit/mL (3 mL) inpn 40 units sc at breakfast, 100 units at lunch, 70 units at supper. - honey (MEDIHONEY) 100 % pste Apply thin layer of medihoney to bilateral lower leg wounds. Change daily. Patient should start on March 31, 2024. - ACCU-CHEK JOSE PLUS TEST STRP test strip USE TO TEST BLOOD GLUCOSE 3 TIMES DAILY - enalapril (VASOTEC) 20 mg tablet Take 0.5 tablets by mouth two times a day. - atorvastatin (LIPITOR) 80 mg tablet take 1 tablet by mouth every day - furosemide (LASIX) 20 mg tablet Take 20 mg by mouth once daily. - ascorbic acid (VITAMIN C ORAL) Take by mouth. - aspirin, enteric coated (ASPIRIN, ENTERIC COATED) 81 mg EC tablet Take 81 mg by mouth once daily. - fluticasone (FLONASE) 50 mcg/actuation nasal spray Use 2 Sprays in each nostril once daily. - cyanocobalamin, vitamin B-12, 1,000 mcg/mL kit 1,000 mcg by INJECTION(UNSPECIFIED PARENTERAL ROUTES) route once every month. - JARDIANCE 25 mg tablet take 1 tablet by mouth every day with breakfast - CPAP/BIPAP/OTHER New set up: Settings 5 - 15 cm H2O, suitable mask per pt preference, chin strap, head gear, humidity, tubing, lifetime supplies. G47.33 NELLY - Blood Pressure Monitor Please monitor blood pressure 1-2 hours after taking morning medications. - Zinc 50 mg tab Take 50 mg by mouth once daily. - multivit,thx,calcium,i nelly,mins (MULTIVITAMIN AND MINERAL ORAL) Take 1 tablet by mouth once daily. - ibuprofen (ADVIL ORAL) Take 3 tablets by mouth as needed. - FLUoxetine (PROZAC) 40 mg capsule Take by mouth q 24 HR. - lancets (ONE TOUCH DELICA) 33 gauge USE TO BLOOD GLUCOSE 3 TIMES DAILY. INSULIN DEPENDENT E11.3299, E11.65, Z79.4 - insulin needles, DISPOSABLE, (BD INSULIN PEN NEEDLE UF) 31 gauge x 5/16 FOUR DAILY FOR INSULIN INJECTIONS. - Blood-Glucose Meter [facility] Use to test blood glucose 3 times daily. Insulin Dependent E11.3299, E11.65, Z79.4 - Cholecalciferol, Vitamin D3, 50 mcg (2,000 unit) cap Take 1 tablet by mouth once daily. 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) [E*02/06/2020 08/12/2020 Hyperglycemia [R73.9] 02/04/2021 02/10/2021 Hyponatremia [E87.1] 02/04/2021 02/04/2021 Lightheadedness [R42] 02/04/2021 02/04/2021 Malaise and fatigue [R53.81, R53.83] 02/04/2021 02/04/2021 Obesity, Class I, BMI 30-34.9 [E66.811] 02/10/2021 03/23/2022 Pain in right knee [M25.561] 02/10/2021 Obesity, Class II, BMI 35-39.9 [E66.812] 09/29/2021 09/23/2022 Albuminuria [R80.9] 09/29/2021 Peripheral artery disease (HCC) [I73.9] 01/19/2022 Venous insufficiency [I87.2] 01/19/2022 Chronic heart failure with preserved ejection f*03/23/2022 Pernicious anemia [D51.0] 09/23/2022 Obesity, Class I, BMI 30-34.9 [E66.811] 09/23/2022 04/17/2024 NELLY (obstructive sleep apnea) [G47.33] 02/09/2023 Chronic ulcer of great toe of right foot (HCC) *06/14/2023 04/17/2024 Endometrial cancer (HCC) [C54.1] 08/09/2023 Obesity, Class II, BMI 35-39.9 [E66.812] 04/17/2024 04/17/2024 Obesity, Class I, BMI 30-34.9 [E66.811] 04/17/2024 Bilateral leg ulcer (HCC) [L97.919, L97.929] 04/17/2024 Urge incontinence [N39.41] 04/26/2024 Encounter Status:Closed by MAURIZIO PACHECO on 07/07/24 [facility] CNOVon 07-07-2024 [facility]2024 [facility] CNOVon 07-05-2024 [facility] HbA1c (Bld)on 07-05-2024 Average glucose Estimated from glycated hemoglobin (Bld) [Mass/Vol] 206 mg/dL [facility] Comment on above: Order Comment: Lisbet ojeda Type: BLOOD SPECIMENOrdering Facility: [facility] Address: [address] [place] [address] Result Comment: eAG: (Estimated average glucose) is a calculated value from HgbA1c and is business center representative of the average blood glucose level in the last 2-3 month period. Performed By: #### 5 5454-3 ####[facility] LABCLIA [id number] [facility] [id number] [place] [address] [place] HbA1c (Bld) [Mass fraction] 8.8 % High 4.3-5.6 [facility] Comment on above: Order Comment: Lisbet ojeda Type: BLOOD SPECIMENOrdering Facility: [facility] Address: [address] [place] [address] Result Comment: [place] Diabetes Association guidelines indicate that patients with HgbA1c in the range 5.7-6.4% are at increased risk for development of diabetes, and intervention by lifestyle modification may be beneficial. HgbA1c greater or equal to 6.5% is considered diagnostic of diabetes. Performed By: #### 5 5454-3 ####[facility] AIDE [id number] [address]SHLEIGH [id number] [address] [place] CNPNon 06-30-2024 CNPN [facility] CNOVon 06-22-2024 CNOV [facility] Progress Noteon 06-20-2024 Progress Note [facility] AT [address] [place] [address] Dept: [phone] Dept PHYSICAL THERAPY RE-EVALUATION Pelvic Health Patient Name: Shade Brambila : 1960 Date of Service: 06/20/2024 Referring Provider: Hamlet Garay MD Visit #: 5 Diagnosis: OAB (overactive bladder) Mechanism of injury: Pt reports she was doing Hyperbarics for her leg wound 11/2022 to 03/2023, then pt states her bladder issues started in 05/2023. Pt reports it is mostly at night with increased nocturia 3 x/ night and urgency UI. Pt's MD did recommend she reduce diet soda intake, elevated legs 2-3 hours before bed and stop drinking 2 hours before bed. Pt reports nocturia reduced to 1 x/ night. Patient Preferences: Vanessa Precautions/Red Flags: Yes S/P operations on 08/19/[address] Alfredo Ureña Robotic assisted total laparoscopic hysterectomy Bilateral salpingo-oophorectomy [place] lymph node mapping Cystoscopy Path: FIGO grade 1 EAC of uterus She did not need adjuvant therapy. Patient had hyperbaric treatments for wound on LLE. Afterwards she noticed urgency and urge incontinence. She denies prolapse symptoms for at least months. She has not tried a pessary. She denies PAO with coughing, laughing, and sneezing. She reports UUI, mainly at night She does have symptoms of urinary urgency and frequency. She does feel that she empties her bladder completely. She has not tried overactive bladder medications. Avoid Estrogen d/t Uterine CA Subjective General Comments: Pt is here today for a re-assessment. Pt has been seen for 4 visits to date. Pt states some days are not good, some days are good. Good days: can make it to the bathroom without UI. Not good days: Still has UI with urgency. Pain: Denies Current Level of Function: Independent but with limitations d/t co-morbidities. Patient?s Stated Goal: Working towards Objective Observations Surgical incisions (location, observations): Pt wearing B would wraps and R knee brace (compression) : the same 06/20/24. Functional mobility: Independent but uses a std cane for ambulation for balance and stability. The same 06/20/24. Ortho screen Posture Observations: Pt demonstrates flexed posture at hips and trunk, decrease static and dynamic standing balance. The same 06/20/24. Lumbar ROM: Limited in standing d/t poor balance. The same 06/20/24. Hip ROM: WFL but limited d/t decreased flexibility LQ Strength L R HIP Flexion 4/5 4/5 Extension 3-/5 3-/5 Abduction 3-/5 3-/5 KNEE Flexion 4+/5 4/5 Extension 5/5 5/5 ANKLE Dorsiflexion 3/5 3/5 Plantarflexion 2+/5 2+/5 CORE 2+/5 Flexibility: LEFT RIGHT Hip Adductors MODERATE MODERATE Hip External Rotators MODERATE MODERATE Iliopsoas SEVERE SEVERE Hamstrings SEVERE SEVERE Assessment Pt is here today for a re-assessment. Pt has been seen for 4 visits to date. Rehab Potential: Good Goals Active General/Ortho Patient will be independent with HEP. (Progressing) Start: 05/23/24 Expected End: 08/22/24 Patient will increase strength in B LE to >4/5 to 5/5 and core to 3/5 to be able to improve PF function and general mobility to be able to reach bathroom in appropriate time without UI. (Progressing) Start: 05/23/24 Expected End: 08/22/24 Pelvic Health Pt will reduce summary score on gender appropriate NIH-CPSI to 4/45 to improve patient's perceived quality of life (Progressing) Start: 05/23/24 Expected End: 08/22/24 Pt will reduce use of pads to 0 pads per night (Progressing) Start: 05/23/24 Expected End: 08/22/24 Pt will reduce urinary incontinence to complete elimination (Progressing) Start: 05/23/24 Expected End: 08/22/24 Plan Frequency and Duration: Intermittent Therapeutic Contents: client education, home exercise program, sensory re-education/desensiti zation, therapeutic activities, and bladder re-training Plan for next session: Pt to focus on endurance Kegel, stretching and strengthening exercises, bladder re-training principles and follow up in 2 weeks. Next appointment 07/04/24 Risks and benefits were discussed with the patient and/or family, and the patient and/or family participated with the plan of care and agrees. Treatment Therapeutic Activity # of Activities: 5 Therapeutic Activity 1: HEP 06/20/24: Pt is independent Activity 1 Comment: stretches: hip add-standing at counter, hip flex -in chair, lumbar extension -against counter Therapeutic Activity 2: PF strengtrhenin06/20/24 Endurance Kegel -progress to 10 second hold Activity 2 Comment: Endurance Kegel: progressed patient to endurance Kegel ( hold 10 seconds/rest 10 seconds ) to promote improved strength endurance of PF muscles to further improve PF muscle function: reduce UI and urinary urgency. Therapeutic Activity 3: Bladder re-training 06/20/24: discus (more content not included)... Normal [facility] Progress Noteon 06-13-2024 Progress Note [facility] AT [address] [place] [address] Dept: [phone] Dept PHYSICAL THERAPY TREATMENT Pelvic Health Patient Name: Shade Brambila : 1960 Date of Service: 06/13/2024 Referring Provider: Hamlet Garay MD Visit #: 4 Diagnosis: OAB (overactive bladder) Mechanism of injury: Pt reports she was doing Hyperbarics for her leg wound 11/2022 to 03/2023, then pt states her bladder issues started in 05/2023. Pt reports it is mostly at night with increased nocturia 3 x/ night and urgency UI. Pt's MD did recommend she reduce diet soda intake, elevated legs 2-3 hours before bed and stop drinking 2 hours before bed. Pt reports nocturia reduced to 1 x/ night. Patient Preferences: Vanessa Precautions/Red Flags: Yes S/P operations on 08/19/[address] Alfredo Ureña Robotic assisted total laparoscopic hysterectomy Bilateral salpingo-oophorectomy [place] lymph node mapping Cystoscopy Path: FIGO grade 1 EAC of uterus She did not need adjuvant therapy. Patient had hyperbaric treatments for wound on LLE. Afterwards she noticed urgency and urge incontinence. She denies prolapse symptoms for at least months. She has not tried a pessary. She denies PAO with coughing, laughing, and sneezing. She reports UUI, mainly at night She does have symptoms of urinary urgency and frequency. She does feel that she empties her bladder completely. She has not tried overactive bladder medications. Avoid Estrogen d/t Uterine CA Subjective Pt had to take lasix for increased water retention. Pt reports she is working on functional Kegel with sit>stand and coordinated breathing and notes reduced UI with sit > stand Compliance with HEP: Yes Objective Objective measurements not taken today. Treatment Therapeutic Activity # of Activities: 4 Therapeutic Activity 1: HEP 06/13/24: Pt is independent Activity 1 Comment: stretches: hip add-standing at counter, hip flex -in chair, lumbar extension -against counter Therapeutic Activity 2: PF strengtrhenin06/13/24 Progressed to endurance Kegel Activity 2 Comment: Endurance Kegel: progressed patient to endurance Kegel ( hold 5 seconds/rest 10 seconds ) to promote improved strength endurance of PF muscles to further improve PF muscle function: reduce UI and urinary urgency. Therapeutic Activity 3: Bladder re-training 06/08/24: discussed good techniques and functional training: pre-kegel and exhaling with sit<>stand Activity 3 Comment: Discussed bladder irritants/diet and increasing water intake Therapeutic Activity 4: Diaphragmatic breathing-pt required max Vc's for proper technique Activity 4 Comment: Diaphragmatic Breathing: Educated patient and discussed rational, use, indications and benefits to: reduce bladder anxiety, stretch/relax PF, reset vagal/ vagus nervous system, lower HR & BP and improve overall lung capacity. Verbal and written information provided with patient demonstration to ensure proper technique Home Exercise Program: Progressed home exercise program Assessment Skilled physical therapy interventions utilized to improve patient?s impairments and work towards established goals. Patient response to treatment: Pt making progress toward goals with increasing PF awareness and reducing UI with sit to stand activities. Pt challenged with diaphragmatic breathing and is limited with co-morbidities. Patient will benefit from continued physical therapy to address strength deficits and PF/Bladder dysfunctions to eliminate UI and improve overall quality of life. The rationale for today?s treatment was explained to the patient. Verbal cues were provided for correct form with all exercises. Advised patient to continue with Home Exercise Program (HEP). Goals General/Ortho Patient will be independent with HEP. (Progressing) Start: 05/23/24 Expected End: 08/22/24 Patient will increase strength in B LE to >4/5 to 5/5 and core to 3/5 to be able to improve PF function and general mobility to be able to reach bathroom in appropriate time without UI. (Progressing) Start: 05/23/24 Expected End: 08/22/24 Pelvic Health Pt will reduce summary score on gender appropriate NIH-CPSI to 4/45 to improve patient's perceived quality of life (Progressing) Start: 05/23/24 Expected End: 08/22/24 Pt will reduce use of pads to 0 pads per night (Progressing) Start: 05/23/24 Expected End: 08/22/24 Pt will reduce urinary incontinence to complete elimination (Progressing) Start: 05/23/24 Expected End: 08/22/24 Plan Plan for next session: Re-assess and progress Kegel as tolerated. Time Entry Total Treatment Time Start Time: 1503 Stop Time: 1545 Time Calculation (min): 42 min PT Therapeutic Procedures Time Entry Therapeutic Activity Time Entry: 42 Hu Hawley PT [facility] Nurse Visit (LOYDNA) SHADE BRAMBILA ([id number]) 1960 F Date Time Provider Department 06/09/24 2:00 PM [facility] During your visit today, we recorded the following information about you: Allergies As of Date: 06/09/2024 Noted Allergy Reaction AMOXICILLIN 11/26/2022 16 - Unknown Comments: Patient does not remember reaction CODEINE 09/26/2022 5 - Intolerance Comments: Patient states Makes her Hyper MORPHINE 08/17/2023 5 - Intolerance Comments: Difficulty waking up / groggy Date Reviewed: 06/09/2024 Reviewed by: Lilli Wolfe RN - Fully Assessed Reason for Visit: Imm/Inj [58] Primary Visit Diagnosis:Vitamin B 12 deficiency [E53.8] Prescriptions as of 06/09/2024 - fluconazole (DIFLUCAN) 150 mg tablet Take 1 tablet by mouth every 72 hours. Take one pill. If no improvement in 72 hours, take an additional dose - metFORMIN (GLUCOPHAGE) 1,000 mg tablet Take 1 tablet by mouth daily with lunch. - insulin regular human, CONCENTRATED 500 UNIT/ML, (HUMULIN R) 500 unit/mL (3 mL) inpn 40 units sc at breakfast, 100 units at lunch, 70 units at supper. - honey (MEDIHONEY) 100 % pste Apply thin layer of medihoney to bilateral lower leg wounds. Change daily. Patient should start on March 31, 2024. - ACCU-CHEK JOSE PLUS TEST STRP test strip USE TO TEST BLOOD GLUCOSE 3 TIMES DAILY - enalapril (VASOTEC) 20 mg tablet Take 0.5 tablets by mouth two times a day. - atorvastatin (LIPITOR) 80 mg tablet take 1 tablet by mouth every day - furosemide (LASIX) 20 mg tablet Take 20 mg by mouth as needed (for increase in weight or leg swelling). take 20mg as needed for swelling - ascorbic acid (VITAMIN C ORAL) Take by mouth. - aspirin, enteric coated (ASPIRIN, ENTERIC COATED) 81 mg EC tablet Take 81 mg by mouth once daily. - fluticasone (FLONASE) 50 mcg/actuation nasal spray Use 2 Sprays in each nostril once daily. - cyanocobalamin, vitamin B-12, 1,000 mcg/mL kit 1,000 mcg by INJECTION(UNSPECIFIED PARENTERAL ROUTES) route once every month. - JARDIANCE 25 mg tablet take 1 tablet by mouth every day with breakfast - CPAP/BIPAP/OTHER New set up: Settings 5 - 15 cm H2O, suitable mask per pt preference, chin strap, head gear, humidity, tubing, lifetime supplies. G47.33 NELLY - Blood Pressure Monitor Please monitor blood pressure 1-2 hours after taking morning medications. - Zinc 50 mg tab Take 50 mg by mouth once daily. - multivit,thx,calcium,i nelly,mins (MULTIVITAMIN AND MINERAL ORAL) Take 1 tablet by mouth once daily. - ibuprofen (ADVIL ORAL) Take 3 tablets by mouth as needed. - FLUoxetine (PROZAC) 40 mg capsule Take by mouth q 24 HR. - lancets (ONE TOUCH DELICA) 33 gauge USE TO BLOOD GLUCOSE 3 TIMES DAILY. INSULIN DEPENDENT E11.3299, E11.65, Z79.4 - insulin needles, DISPOSABLE, (BD INSULIN PEN NEEDLE UF) 31 gauge x 5/16 FOUR DAILY FOR INSULIN INJECTIONS. - Blood-Glucose Meter misc Use to test blood glucose 3 times daily. Insulin Dependent E11.3299, E11.65, Z79.4 - Cholecalciferol, Vitamin D3, 50 mcg (2,000 unit) cap Take 1 tablet by mouth once daily. 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) [E*02/06/2020 08/12/2020 Hyperglycemia [R73.9] 02/04/2021 02/10/2021 Hyponatremia [E87.1] 02/04/2021 02/04/2021 Lightheadedness [R42] 02/04/2021 02/04/2021 Malaise and fatigue [R53.81, R53.83] 02/04/2021 02/04/2021 Obesity, Class I, BMI 30-34.9 [E66.811] 02/10/2021 03/23/2022 Pain in right knee [M25.561] 02/10/2021 Obesity, Class II, BMI 35-39.9 [E66.812] 09/29/2021 09/23/2022 Albuminuria [R80.9] 09/29/2021 Peripheral artery disease (HCC) [I73.9] 01/19/2022 Venous insufficiency [I87.2] 01/19/2022 Chronic heart failure with preserved ejection f*03/23/2022 Pernicious anemia [D51.0] 09/23/2022 Obesity, Class I, BMI 30-34.9 [E66.811] 09/23/2022 04/17/2024 NELLY (obstructive sleep apnea) [G47.33] 02/09/2023 Chronic ulcer of great toe of right foot (HCC) *06/14/2023 04/17/2024 Endometrial cancer (HCC) [C54.1] 08/09/2023 Obesity, Class II, BMI 35-39.9 [E66.812] 04/17/2024 04/17/2024 Obesity, Class I, BMI 30-34.9 [E66.811] 04/17/2024 Bilateral leg ulcer (HCC) [L97.919, L97.929] 04/17/2024 Urge incontinence [N39.41] 04/26/2024 Encounter Status:Closed by LILLI WOLFE on 06/09/24 [facility] CNOVon 06-09-2024 [facility] Progress Noteon 06-08-2024 Progress Note [facility] AT [address] [place] [address] Dept: [phone] Dept PHYSICAL THERAPY TREATMENT Pelvic Health Patient Name: Shade Brambila : 1960 Date of Service: 06/08/2024 Referring Provider: Hamlet Garay MD Visit #: 3 Diagnosis: OAB (overactive bladder) Mechanism of injury: Pt reports she was doing Hyperbarics for her leg wound 11/2022 to 03/2023, then pt states her bladder issues started in 05/2023. Pt reports it is mostly at night with increased nocturia 3 x/ night and urgency UI. Pt's MD did recommend she reduce diet soda intake, elevated legs 2-3 hours before bed and stop drinking 2 hours before bed. Pt reports nocturia reduced to 1 x/ night. Patient Preferences: Vanessa Precautions/Red Flags: Yes S/P operations on 08/19/[address] Alfredo Ureña Robotic assisted total laparoscopic hysterectomy Bilateral salpingo-oophorectomy [place] lymph node mapping Cystoscopy Path: FIGO grade 1 EAC of uterus She did not need adjuvant therapy. Patient had hyperbaric treatments for wound on LLE. Afterwards she noticed urgency and urge incontinence. She denies prolapse symptoms for at least months. She has not tried a pessary. She denies PAO with coughing, laughing, and sneezing. She reports UUI, mainly at night She does have symptoms of urinary urgency and frequency. She does feel that she empties her bladder completely. She has not tried overactive bladder medications. Avoid Estrogen d/t Uterine CA Subjective Pt states her bladder is better. She is working on her night time strategies and day time urge suppression. Pt reports less amount and less occurrences of UI Compliance with HEP: Yes Objective Objective measurements not taken today. Treatment Therapeutic Activity # of Activities: 4 Therapeutic Activity 1: HEP 06/08/24: Verbal review. Pt is independent Activity 1 Comment: stretches: hip add-standing at counter, ., , hip flex -in chair, lumbar extension -against counter Therapeutic Activity 2: PF strengtrhenin06/08/24 Verbal reivew. Discussed completing in different positions and continue to focus on isolated contractions with coordinated breathing Activity 2 Comment: Quick Kegel Therapeutic Activity 3: Bladder re-training 06/08/24: discussed good techniques and functional training: pre-kegel and exhaling with sit<>stand Activity 3 Comment: Discussed bladder irritants/diet and increasing water intake Home Exercise Program: Progressed home exercise program Assessment Skilled physical therapy interventions utilized to improve patient?s impairments and work towards established goals. Patient response to treatment: Patient is making progress toward goals with reducing UI amount and occurrence, making good effort with night time strategies and day time frequency/urge suppression. Pt improving with quick Kegel with isolated PF contraction with coordinated breathing. Pt working on core/LE strengthening in other PT. Patient will benefit from continued physical therapy to address PF/bladder dysfunctions to eliminate UI and improver overall quality of life. The rationale for today?s treatment was explained to the patient. Verbal cues were provided for correct form with all exercises. Advised patient to continue with Home Exercise Program (HEP). Goals General/Ortho Patient will be independent with HEP. (Progressing) Start: 05/23/24 Expected End: 08/22/24 Patient will increase strength in B LE to >4/5 to 5/5 and core to 3/5 to be able to improve PF function and general mobility to be able to reach bathroom in appropriate time without UI. (Progressing) Start: 05/23/24 Expected End: 08/22/24 Pelvic Health Pt will reduce summary score on gender appropriate NIH-CPSI to 4/45 to improve patient's perceived quality of life (Progressing) Start: 05/23/24 Expected End: 08/22/24 Pt will reduce use of pads to 0 pads per night (Progressing) Start: 05/23/24 Expected End: 08/22/24 Pt will reduce urinary incontinence to complete elimination (Progressing) Start: 05/23/24 Expected End: 08/22/24 Plan Plan for next session: Progress Kegel and HEP as tolerated. Time Entry Total Treatment Time Start Time: 1556 Stop Time: 1639 Time Calculation (min): 43 min PT Therapeutic Procedures Time Entry Therapeutic Activity Time Entry: 43 uH Hawley, PT [facility] CNOVon 06-07-2024 [facility] Progress Noteon 05-30-2024 Progress Note [facility] [place] [address] [place] [address] Dept: [phone] Dept PHYSICAL THERAPY TREATMENT Pelvic Health Patient Name: Shade Brambila : 1960 Date of Service: 05/30/2024 Referring Provider: Hamlet Garay MD Visit #: 2 Diagnosis: OAB (overactive bladder) Mechanism of injury: Pt reports she was doing Hyperbarics for her leg wound 11/2022 to 03/2023, then pt states her bladder issues started in 05/2023. Pt reports it is mostly at night with increased nocturia 3 x/ night and urgency UI. Pt's MD did recommend she reduce diet soda intake, elevated legs 2-3 hours before bed and stop drinking 2 hours before bed. Pt reports nocturia reduced to 1 x/ night. Patient Preferences: Vanessa Precautions/Red Flags: Yes S/P operations on 08/19/[address] Alfredo Ureña Robotic assisted total laparoscopic hysterectomy Bilateral salpingo-oophorectomy [place] lymph node mapping Cystoscopy Path: FIGO grade 1 EAC of uterus She did not need adjuvant therapy. Patient had hyperbaric treatments for wound on LLE. Afterwards she noticed urgency and urge incontinence. She denies prolapse symptoms for at least months. She has not tried a pessary. She denies PAO with coughing, laughing, and sneezing. She reports UUI, mainly at night She does have symptoms of urinary urgency and frequency. She does feel that she empties her bladder completely. She has not tried overactive bladder medications. Avoid Estrogen d/t Uterine CA Subjective Pt brought in her HEP from other PT program Compliance with HEP: Yes Objective Pelvic Floor Assessment Special tests Skin observation: Vulva/labia majora moderately red and dry from pad use. Pt with vaginal atrophy and dehydration Vaginal Wall Weakness Anterior wall: mild Posterior wall: mild Observations: With supine bulge activity Pelvic Floor Muscle testing Modified Laycock: Layer 1: 1/5 Layer 2: 1/5 Layer 3: 1/5 Endurance: < 1 second Contraction quality: poof-pt challenged with recruiting PF mm's and tends to use accessory mm's and coordinated breathing is difficult Relaxation quality: fair Voluntary excursion quality: poor Resting position: WNl Palpation Myofascial mobility: moderate age related and hormonal related changed. Soft tissue: non tender SOSA Tenderness 0-no tenderness 1-complaint of pain 2-Pain w/wincing 3-Pain w/ withdrawal 4- Unable to palpate Guarding 0-No guarding 1-Mild 2- Moderate 3-Severe Spasm 0-No spasm 1-Mild 2-Moderate 3-Severe Mobility 0-No change 1-Mild 2-Moderate 3-Severe Muscles/Soft tissue Left Right Left Right Left Right Left Right Bulbocavernosus 0 0 0 0 0 0 2 2 Coccygeus 0 0 0 0 0 0 0 0 Iliococcygeus 0 0 0 0 0 0 2 2 Ischiocavernosus 0 0 0 0 0 0 0 0 Levator Ani 0 0 0 0 0 0 2 2 Obturator Internus 0 0 0 0 0 0 3 3 Pelvic Clock 12-3 0 X X X X X X X Pelvic Clock 3-6 0 X X X X X X X Pelvic Clock 6-9 X 0 X X X X X X Pelvic Clock 9-12 X 0 X X X X X X Perineal body 0 0 X X X X 2 2 Pubococcygeus 0 0 0 0 0 0 0 0 Puborectalis 0 0 0 0 0 0 1 1 Transverse Perineal 0 0 0 0 0 0 0 0 Transverse Perineal- Deep 0 0 0 0 0 0 2 2 Bony Structures: 0 0 X X X X X X Treatment Therapeutic Activity # of Activities: 4 Therapeutic Activity 1: HEP 05/30/24: pt brought in home prgram from other PT program; it includes sink exercises, LAQ/SAQ/HS stretch, seated ex's. Scanned into pt's chart.( add: stretches: hip add., hip Rot. , hip flex next session) Activity 1 Comment: stretches: hip add-standing at counter, ., , hip flex -in chair, lumbar extension -against counterDiscussed rational and importance of HEP for program carryover and maximal benefit of rehab. Patient demonstrated exercises to ensure proper technique and clinician provided verbal and written information. Exercises inputted into OM Latam. Therapeutic Activity 2: Internal PF mm assessment-05/30/24 completed. See objective section of notes Activity 2 Comment: Pelvic Floor Assessment: Discussed rational, informed consent*, completion & findings explained. (*Consent for pelvic floor assessment, muscle testing and treatment: Patient received education regarding pelvic floor physical therapy assessment/treatment with use of 3D pelvic floor model for education on relevant pelvic floor anatomy. Assessment and treatment may include an external or internal (visual and/or digital/tactile) approach for assessment/treatment of perineal tissues, pelvic floor and pelvic girdle muscles. Patient provided freely given, reversible, informed, enthusiastic and specific consent for internal pelvic floor muscle assessment and treatment today. Patient understands that they have control of the assessment and treatment, having the opportunity to stop treatment at any time. Patient also provided writte (more content not included)... Normal [facility] CNOVSPon 05-25-2024 [facility] Visit (SP) Office (TRACE) SHADE BRAMBILA ([id number]) 1960 F Date Time Provider Department 05/25/24 10:00 AM ALFREDO UREÑA During your visit today, we recorded the following information about you: Temperature Pulse Blood pressure Weight 98.2 degrees 67/minute 189/100 107 kg Alfredo Ureña MD 05/25/2024 10:46 AM Signed Gynecologic Oncology Note [facility] Chief complaint: Surveillance (3 months) HPI: This is a 63 year old with h/o stage IA2 FIGO grade 1 EAC of the uterus s/p RA-TLH/BSO, PLND here for surveillance. Patient is without concern today. She has been doing PT on Tuesdays and , has been going well. She has been increasing her water intake, which has improved her bowel movement frequency and consistency. Saw Dr. Garay in March, recommended pelvic floor PT due to urinary frequency/incontinence , first appt this week which she felt went well. She has cut out caffeine. These have reduced nocturia from 2-3 times per night to once. No N/V/C/D. Good appetite. No VB/VD. Oncologic History: Oncology History Endometrial cancer (HCC) 08/09/2023 Initial Diagnosis Endometrial cancer (HCC) 08/19/2023 Surgery RA-TLH/BSO, cystoscopy. Non-mapping sentinel nodes, frozen FIGO grade 1 and < 50 % myoinvasion. Lymph node dissection deferred. Final stage IA (IA2 -2022). MMR intact. ROS: All other medical and surgical histories reviewed and updated. PE: BP: 189/100 Temp: 36.8 ?C (98.2 ?F) Temp src: Oral Pulse: 67 SpO2: 96 % Gen: well appearing, alert Abd: soft, incisions well healed, non-tender, non-distended Pelvic: well-circumscribed patches of erythema to BL medial thighs and inguinal folds and perineum and non-tender symmetrical erythema and thickening of vulva consistent with dermatitis; typical atrophic changes in vagina, cuff well healed; No nodularity on bimanual exam. Dr. Merrill served as weight trainer. Rectal: deferred Ext: non-tender, BLE in lymphedema wraps The sensitive examination was discussed with the Patient or Patient's Authorized Tire Installer. As applicable, any other physician, advance practice provider, medical student, or other health professional student that will be observing or involved in the sensitive examination for educational or training purposes was discussed with the Patient or Authorized Tire Installer. The Patient or Authorized Tire Installer has agreed to proceed with the sensitive examination. (Sensitive examination includes inspection and/or palpation of the breasts, pelvis, prostate and anorectal regions) Lab/Imaging: A. Uterus, cervix, bilateral fallopian tubes and ovaries, total robotic laparoscopic hysterectomy with bilateral salpingo-oophorectomy: -- Endometrium: Endometrial adenocarcinoma, endometrioid type FIGO grade 1, invades 31% (6/19 mm) of myometrium, see comment and case summary. -- Myometrium: Leiomyoma and adenomyosis. -- Cervix: Negative for cervical stromal involvement. -- Bilateral fallopian tubes: Negative for carcinoma. 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 Garay in March, referred to pelvic floor PT, which has been improving her nocturia Incontinence-associate d dermatitis - Areas of erythema to BL medial thighs, inguinal folds, perineum and vulva consistent - Discussed use of barrier creams such as zinc oxide to prevent irritation when wearing incontinence pads Li Merrill, DO 05/25/2024 10:32 AM Alfredo Ureña MD, MPH Gynecologic Oncologist Medical Decision Making: Problems: Moderate: 2+ stable chronic illnesses Risk: Low: Low risk from testing/treatment Medical Decision Making Level: 3 - Low Referring Provider: ALFREDO UREÑA [[id number]] Allergies As of Date: 05/25/2024 Noted Allergy Reaction AMOXICILLIN 11/26/2022 16 - Unknown Comments: Patient does not remember reaction CODEINE 09/26/2022 5 - Intolerance Comments: Patient states Makes her Hyper MORPHINE 08/17/2023 5 - Intolerance Comments: Difficulty waking up / groggy Date Reviewed: 05/25/2024 Reviewed by: Alfredo Ureña MD - Fully Assessed Reason for Visit: Established Patient [175] Primary Visit Diagnosis:Endometrial cancer (HCC) [C54.1] Other Visit Diagnoses:Vulvar dermatitis [L30.9] Mixed stress and urge urinary incontinence [N39.46] Prescriptions as of 05/25/2024 - fluconazole (DIFLUCAN) 150 mg tablet Take 1 tablet by mouth every 72 hours. Take one pill. If no improvement in 72 hours, take an additional dose - metFORMIN (GLUCOPHAGE) 1,000 mg tablet Ivan (more content not included)... Normal [facility] CNOVon 05-24-2024 [facility] Progress Noteon 05-23-2024 Progress Note [facility] AT [address] [place] [address] Dept: [phone] Dept PHYSICAL THERAPY EVALUATION Pelvic Health Patient Name: Shade Brambila : 1960 Date of Service: 05/23/2024 Referring Provider: Hamlet Garay MD Visit #: 1 Diagnosis: OAB (overactive bladder) General Information Mechanism of injury: Pt reports she was doing Hyperbarics for her leg wound 11/2022 to 03/2023, then pt states her bladder issues started in 05/2023. Pt reports it is mostly at night with increased nocturia 3 x/ night and urgency UI. Pt's MD did recommend she reduce diet soda intake, elevated legs 2-3 hours before bed and stop drinking 2 hours before bed. Pt reports nocturia reduced to 1 x/ night. Patient Preferences: Vanessa Precautions/Red Flags: Yes S/P operations on 08/19/[address] Alfredo Ureña Robotic assisted total laparoscopic hysterectomy Bilateral salpingo-oophorectomy [place] lymph node mapping Cystoscopy Path: FIGO grade 1 EAC of uterus She did not need adjuvant therapy. Patient had hyperbaric treatments for wound on LLE. Afterwards she noticed urgency and urge incontinence. She denies prolapse symptoms for at least months. She has not tried a pessary. She denies PAO with coughing, laughing, and sneezing. She reports UUI, mainly at night She does have symptoms of urinary urgency and frequency. She does feel that she empties her bladder completely. She has not tried overactive bladder medications. Avoid Estrogen d/t Uterine CA Fall Risk: No Work status: [employer], works from Home-mostly sits at computer. PMHX: Shade has a past medical history of Anxiety, Depression, Diabetes mellitus (HCC), Hyperlipidemia, and Hypertension. PSHX: Shade has a past surgical history that includes Tonsillectomy. Have you experienced any anxiety or depression?: No Have you experienced thoughts of self-harm or suicidal thoughts?: No Social Determinates of Health Reviewed: Yes Physician follow-up appointment?: No Subjective Chief Complaint: See specialty below Prior Level of Function: Independent Current Level of Function: Pt ambulates into PT clinic with std cane, slow fatimah , decreased step length, wide DOMINIC. Pt wearing B wound care wraps, B knee braces/compression braces. Fair balance and stability on level surfaces. Pt having PT for strengthening Patient?s Stated Goal: Eliminate UI and normalize urinary frequency. Additional Specialty Information: PELVIC HEALTH Hx and sx : ; Urinary Sx Incontinence: mixed a few drops to wet under roy Post-void dribble: No Urgency: Yes Aggravating/alleviatin g factors: bladder irritants Voiding frequency: Every 2-3 hours Nocturia: Yes , 1x /night ( but was more like 3 x/ night) Sensation of incomplete bladder emptying: No Pain associated with bladder and/or voiding: No Use of Protection: Type: Discrete level 5 Quantity: wears at night : changes 1-3 x Bowel sx Constipation: yes, but better now drinking water Straining: Yes but better now drinking water Hemorrhoids: No Sensation of incomplete bowel emptying: No Splinting: No Fecal incontinence: on with diarrhea Frequency of BM: 1 x/ day Dietary Water intake: 64 fl. Oz/day Dietary irritants: stopped drinking diet pop; OJ=with low sugar Pain-denies Questionnaire: NIH-CPSI: female Score: 9/45 Objective Observations Surgical incisions (location, observations): Pt wearing B would wraps and R knee brace (compression) Functional mobility: Independent but uses a std cane for ambulation for balance and stability Ortho screen Posture Observations: Pt demonstrates flexed posture at hips and trunk, decrease static and dynamic standing balance Lumbar ROM: Limited in standing d/t poor balance Hip ROM: WFL but limited d/t decreased flexibility Palpation: N/a LQ Strength L R HIP Flexion 3+/5 3+/5 Extension 3+/5 3-/5 Abduction 3-/5 3-/5 KNEE Flexion 4/5 4-/5 Extension 5/5 5/5 ANKLE Dorsiflexion 3/5 3/5 Plantarflexion 2+/5 2+/5 CORE 2/5 Flexibility: LEFT RIGHT Hip Adductors SEVERE SEVERE Hip External Rotators SEVERE SEVERE Iliopsoas SEVERE SEVERE Hamstrings SEVERE SEVERE Assessment Shade is a 63 y.o. patient who presents to PT with a diagnosis of OAB (overactive bladder). Pt demonstrates PF/bladder dysfunctions, general whole body weakness, core weakness, balance deficits, contributing to UI, impaired function and reduced quality of life.. . The patient would benefit from skilled physical therapy to address decreased strength, decreased range of motion, decreased mobility, soft tissue impairment, impaired functional activities, and PF & bladder dysfunctions . Evaluation complexity is moderate secondary to: patient has 3 or more personal factors and/or comorbidities that wi (more content not included)... [facility] SHADE BRAMBILA ([id number]) 1960 F Date Time Provider Department 05/09/24 2:00 PM NURSE BROOKLYNN GAFFNEY During your visit today, we recorded the following information about you: Jimena Dunham MA 05/09/2024 1:48 PM Signed Patient presents with: Nurse Visit: Jimena Finn MA 05/09/2024 1:48 PM Signed Anxiety Screening Never done Colorectal Cancer Screening Never done RSV Vaccine(1 - 1-dose 60+ series) Never done Mammogram Screening due on 09/15/2023 Covid-19 Vaccine(2022- season) Never done Influenza Vaccine(1) due on 05/07/2024 Last 3 Encounter BP Readings: Date: BP: 04/26/2024 138/68 04/26/2024 133/65 04/17/2024 142/67 LDL Cholesterol Date Value 07/27/2023 103 mg/dL 08/15/2022 117 mg/dL 09/19/2021 102 LDL (no units) Date Value 02/05/2020 106 HBA1C: Hemoglobin A1C (%) Date Value 03/13/2024 9.8 10/07/2023 8.3 08/09/2023 9.1 09/19/2021 10.3 02/04/2021 11.1 Hemoglobin A1c (%) Date Value 08/11/2013 7.0 05/03/2013 11.1 Hemoglobin A1C (POCT) (%) Date Value 06/14/2023 7.9 03/23/2022 10.1 08/12/2020 10.6 Albumin/Creat Ratio Date Value 07/27/2023 226 mg/g (H) 08/13/2020 118.2 MG/G (A) Protein, Urine (no units) Date Value 03/22/2023 Negative 02/03/2021 Negative Creatinine, Ur Random (UCRR) (mg/dL) Date Value 07/27/2023 145.3 Albumin, Urine (mg/l) Date Value 08/13/2020 20.8 Diabetic Foot and Retinal Eye Exam not Overdue Allergies As of Date: 05/09/2024 Noted Allergy Reaction AMOXICILLIN 11/26/2022 16 - Unknown Comments: Patient does not remember reaction CODEINE 09/26/2022 5 - Intolerance Comments: Patient states Makes her Hyper MORPHINE 08/17/2023 5 - Intolerance Comments: Difficulty waking up / groggy Date Reviewed: 05/09/2024 Reviewed by: Jimena Dunham MA - Fully Assessed Reason for Visit: Nurse Visit [792] Cmt: B12 Primary Visit Diagnosis:B12 deficiency [E53.8] Prescriptions as of 05/09/2024 - fluconazole (DIFLUCAN) 150 mg tablet Take 1 tablet by mouth every 72 hours. Take one pill. If no improvement in 72 hours, take an additional dose - metFORMIN (GLUCOPHAGE) 1,000 mg tablet Take 1 tablet by mouth daily with lunch. - insulin regular human, CONCENTRATED 500 UNIT/ML, (HUMULIN R) 500 unit/mL (3 mL) inpn 40 units sc at breakfast, 100 units at lunch, 70 units at supper. - honey (MEDIHONEY) 100 % pste Apply thin layer of medihoney to bilateral lower leg wounds. Change daily. Patient should start on March 31, 2024. - ACCU-CHEK JOSE PLUS TEST STRP test strip USE TO TEST BLOOD GLUCOSE 3 TIMES DAILY - enalapril (VASOTEC) 20 mg tablet Take 0.5 tablets by mouth two times a day. - atorvastatin (LIPITOR) 80 mg tablet take 1 tablet by mouth every day - furosemide (LASIX) 20 mg tablet Take 20 mg by mouth once daily. take 20mg as needed for swelling - ascorbic acid (VITAMIN C ORAL) Take by mouth. - aspirin, enteric coated (ASPIRIN, ENTERIC COATED) 81 mg EC tablet Take 81 mg by mouth once daily. - fluticasone (FLONASE) 50 mcg/actuation nasal spray Use 2 Sprays in each nostril once daily. - cyanocobalamin, vitamin B-12, 1,000 mcg/mL kit 1,000 mcg by INJECTION(UNSPECIFIED PARENTERAL ROUTES) route once every month. - JARDIANCE 25 mg tablet take 1 tablet by mouth every day with breakfast - CPAP/BIPAP/OTHER New set up: Settings 5 - 15 cm H2O, suitable mask per pt preference, chin strap, head gear, humidity, tubing, lifetime supplies. G47.33 NELLY - Blood Pressure Monitor Please monitor blood pressure 1-2 hours after taking morning medications. - Zinc 50 mg tab Take 50 mg by mouth once daily. - multivit,thx,calcium,i nelly,mins (MULTIVITAMIN AND MINERAL ORAL) Take 1 tablet by mouth once daily. - ibuprofen (ADVIL ORAL) Take 3 tablets by mouth as needed. - FLUoxetine (PROZAC) 40 mg capsule Take by mouth q 24 HR. - lancets (ONE TOUCH DELICA) 33 gauge USE TO BLOOD GLUCOSE 3 TIMES DAILY. INSULIN DEPENDENT E11.3299, E11.65, Z79.4 - insulin needles, DISPOSABLE, (BD INSULIN PEN NEEDLE UF) 31 gauge x 5/16 FOUR DAILY FOR INSULIN INJECTIONS. - Blood-Glucose Meter [facility] Use to test blood glucose 3 times daily. Insulin Dependent E11.3299, E11.65, Z79.4 - Cholecalciferol, Vitamin D3, 50 mcg (2,000 unit) cap Take 1 tablet by mouth once daily. Facility-Administered Medications as of 05/09/2024 - cyanocobalamin 1,000 mcg injection Problem List As Of Date 05/09/2024 Noted Resolved Type 2 diabetes mellitus with proliferative ret*08/08/1999 Mixed hyperlipidemia [E78.2] 08/08/2012 Insulin long-term use (HCC) [Z79.4] 08/09/2012 12/12/2018 Primary hypertension [I10] 05/16/2013 Depression [F32.A] 05/16/2013 Vitamin D deficiency [E55.9] 01/05/2017 Chest pain [R07.9] 04/01/2017 03/10/2019 Obesity, Class II, BMI 35-39.9 [E66.9] 02/05/2020 02/10/2021 Diabetic (more content not included)... Normal [facility] CNPChristelle 05-04-2024 CNPN Telephone (FAMDNA) SHADE BRAMBILA ([id number]) 1960 F Date Time Provider Department 05/04/24 ELDON GILL During your visit today, we recorded the following information about you: Juliet Stanley MA 05/04/2024 3:03 PM Signed Type of letter/form/fax request - Physical Therapy Orders Form received from [facility] on 04/25/24 floor and placed on MD desk () for completion. Completed form needs to be faxed to [phone]. Route to [place] when form completed for processing Allergies As of Date: 05/04/2024 Noted Allergy Reaction AMOXICILLIN 11/26/2022 16 - Unknown Comments: Patient does not remember reaction CODEINE 09/26/2022 5 - Intolerance Comments: Patient states Makes her Hyper MORPHINE 08/17/2023 5 - Intolerance Comments: Difficulty waking up / groggy Date Reviewed: 04/26/2024 Reviewed by: Melina Draper - Fully Assessed Prescriptions as of 05/04/2024 - fluconazole (DIFLUCAN) 150 mg tablet Take 1 tablet by mouth every 72 hours. Take one pill. If no improvement in 72 hours, take an additional dose - metFORMIN (GLUCOPHAGE) 1,000 mg tablet Take 1 tablet by mouth daily with lunch. - insulin regular human, CONCENTRATED 500 UNIT/ML, (HUMULIN R) 500 unit/mL (3 mL) inpn 40 units sc at breakfast, 100 units at lunch, 70 units at supper. - honey (MEDIHONEY) 100 % pste Apply thin layer of medihoney to bilateral lower leg wounds. Change daily. Patient should start on March 31, 2024. - ACCU-CHEK JOSE PLUS TEST STRP test strip USE TO TEST BLOOD GLUCOSE 3 TIMES DAILY - enalapril (VASOTEC) 20 mg tablet Take 0.5 tablets by mouth two times a day. - atorvastatin (LIPITOR) 80 mg tablet take 1 tablet by mouth every day - furosemide (LASIX) 20 mg tablet Take 20 mg by mouth once daily. take 20mg as needed for swelling - ascorbic acid (VITAMIN C ORAL) Take by mouth. - aspirin, enteric coated (ASPIRIN, ENTERIC COATED) 81 mg EC tablet Take 81 mg by mouth once daily. - fluticasone (FLONASE) 50 mcg/actuation nasal spray Use 2 Sprays in each nostril once daily. - cyanocobalamin, vitamin B-12, 1,000 mcg/mL kit 1,000 mcg by INJECTION(UNSPECIFIED PARENTERAL ROUTES) route once every month. - JARDIANCE 25 mg tablet take 1 tablet by mouth every day with breakfast - CPAP/BIPAP/OTHER New set up: Settings 5 - 15 cm H2O, suitable mask per pt preference, chin strap, head gear, humidity, tubing, lifetime supplies. G47.33 NELLY - Blood Pressure Monitor Please monitor blood pressure 1-2 hours after taking morning medications. - Zinc 50 mg tab Take 50 mg by mouth once daily. - multivit,thx,calcium,i nelly,mins (MULTIVITAMIN AND MINERAL ORAL) Take 1 tablet by mouth once daily. - ibuprofen (ADVIL ORAL) Take 3 tablets by mouth as needed. - FLUoxetine (PROZAC) 40 mg capsule Take by mouth q 24 HR. - lancets (ONE TOUCH DELICA) 33 gauge USE TO BLOOD GLUCOSE 3 TIMES DAILY. INSULIN DEPENDENT E11.3299, E11.65, Z79.4 - insulin needles, DISPOSABLE, (BD INSULIN PEN NEEDLE UF) 31 gauge x 5/16 FOUR DAILY FOR INSULIN INJECTIONS. - Blood-Glucose Meter [facility] Use to test blood glucose 3 times daily. Insulin Dependent E11.3299, E11.65, Z79.4 - Cholecalciferol, Vitamin D3, 50 mcg (2,000 unit) cap Take 1 tablet by mouth once daily. 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) [E*02/06/2020 08/12/2020 Hyperglycemia [R73.9] 02/04/2021 02/10/2021 Hyponatremia [E87.1] 02/04/2021 02/04/2021 Lightheadedness [R42] 02/04/2021 02/04/2021 Malaise and fatigue [R53.81, R53.83] 02/04/2021 02/04/2021 Obesity, Class I, BMI 30-34.9 [E66.9] 02/10/2021 03/23/2022 Pain in right knee [M25.561] 02/10/2021 Obesity, Class II, BMI 35-39.9 [E66.9] 09/29/2021 09/23/2022 Albuminuria [R80.9] 09/29/2021 Peripheral artery disease (HCC) [I73.9] 01/19/2022 Venous insufficiency [I87.2] 01/19/2022 Chronic heart failure with preserved ejection f*03/23/2022 Pernicious anemia [D51.0] 09/23/2022 Obesity, Class I, BMI 30-34.9 [E66.9] 09/23/2022 04/17/2024 NELLY (obstructive sleep apnea) [G47.33] 02/09/2023 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 Normal [facility] BACTERIAL VAGINOSIS NAATon 0 8- Lactobacillus crispatus+gasseri+jense irina + Gardnerella vaginalis + Atopobium vaginae rRNA DAMARI+probe Ql (Vag fld) Negative Normal Negative for bacterial vaginosis [facility] Comment on above: Order Comment: Speci men Type: SWAB Ordering Facility: [facility] Address: [address] [place] [address] Performed By: #### B VAMP, CVTV #### [facility] CLIA [id number] [address] [place] [address] OF [place] EMMY/TRICHOMONAS NAATon 0 04-26-2024 C. glabrata RNA DAMARI+probe Ql (Vag fld) Positive Abnormal Negative for Emmy glabrata [facility] Comment on above: Order Comment: Speci men Type: SWAB Ordering Facility: [facility] Address: [address] [place] [address] Performed By: #### Sedrick VAMP, CVTV #### [facility] CLIA [id number] [address] [place] [address] [place] Emmy sp DNA DAMARI+probe Ql (Vag fld) Negative Normal Negative for Emmy species [facility] Comment on above: Order Comment: Speci men Type: SWAB Ordering Facility: [facility] Address: [address] [place] [address] Performed By: #### Sedrick VAMP, CVTV #### [facility] CLIA [id number] [address] [place] [address] OF [place] T. vaginalis DNA DAMARI+probe Ql (Unsp spec) Negative Normal Negative for Trichomonas vaginalis by amplification [facility] Comment on above: Order Comment: Speci men Type: SWAB Ordering Facility: [facility] Address: [address] [place] [address] Performed By: #### Sedrick VAMP, CVTV #### [facility] CLIA [id number] [address] [place] [address] [place] CNOVon 04-26-2024 CNOV Office Visit (GENEVIEVE ) KOSTA,SHADE A ([id number]) 1960 F Date Time Provider Department 04/26/24 1:00 PM HAMLET GARAY During your visit today, we recorded the following information about you: Pulse Blood pressure Weight 76/minute 133/65 102.1 kg Hamlet Garay MD 04/26/2024 3:31 PM Signed Female Pelvic Medicine AND Reconstructive Surgery Consult CHIEF COMPLAINT: Shade Brambila is a 63 year old G0 referred for consultation regarding urinary incontinence. She has had a hysterectomy. HISTORY OF PRESENT ILLNESS: S/P operations on 08/19/[address] Alfredo Ureña Robotic assisted total laparoscopic hysterectomy Bilateral salpingo-oophorectomy [place] lymph node mapping Cystoscopy Path: FIGO grade 1 EAC of uterus She did not need adjuvant therapy. Patient had hyperbaric treatments for wound on LLE. Afterwards she noticed urgency and urge incontinence. She denies prolapse symptoms for at least months. She has not tried a pessary. She denies PAO with coughing, laughing, and sneezing. She reports UUI, mainly at night She does have symptoms of urinary urgency and frequency. She does feel that she empties her bladder completely. She has not tried overactive bladder medications. Daytime frequency: 5 Nocturia: 3+ Fluid intake: 0 cups of coffee, and 16oz of water daily. She drinks a 2 liter of diet pop daily. Drinks continuously throughout the day up until she goes to bed. She reports a history of UTIs- once last January. Today she denies any dysuria or hematuria. She denies constipation, reports normal bowel movements. She denies fecal incontinence of gas/stool. She does not take fiber supplements to help with her constipation. She has difficulty cleaning afterwards. She denies vaginal dryness. She does not use vaginal estrogen. She is not sexually active. She denies a strong family history of breast and ovarian cancer. 1 paternal aunt with breast cancer. Medical and Symptom History: [employer] HISTORY: menopause at age age 46, Denies hx of HRT, Remote hx of abnormal paps with normal repeat pap per patient, last pap in 2022 normal, last mammogram 2022 neg OB History T0 L0 SAB0 IAB0 Ectopic0 Multiple0 Live Births0 [id number] dependant. Most recent HgbA1c 9.3. Hx of digit amputation on the right foot. PFDI-20 Do you: Usually experience pressure in the lower abdomen? No (0) Usually experience heaviness or dullness in the pelvic area? No (0) Usually have a bulge or something falling out that you can see or feel in your vaginal area? No (0) Ever have to push on the vagina or around the rectum to have or complete a bowel movement? Yes, quite a bit bothersome (4) Usually experience a feeling of incomplete bladder emptying? No (0) Ever have to push up on a bulge in the vaginal area with your fingers to start or complete urination? No (0) Feel you need to strain too hard to have a bowel movement? No (0) Feel you have not completely emptied your bowels at the end of a bowel movement? Yes, quite a bit bothersome (4) Usually lose stool beyond your control if your stool is well formed? No (0) Usually lose stool beyond your control if your stool is loose? No (0) Usually lose gas from the rectum beyond your control? Yes, quite a bit bothersome (4) Usually have pain when you pass your stool? No (0) Experience a strong sense of urgency and have to dhillon to the bathroom to have a bowel movement? No (0) Does part of your bowel ever pass through the rectum and bulge outside during or after a bowel movement? No (0) Usually experience frequent urination? Yes, moderately bothersome (3) Usually experience urine leakage associated with a feeling of urgency, that is, a strong sensation of needing to go to the bathroom? Yes, quite a bit bothersome (4) Usually experience urine leakage related to coughing, sneezing or laughing? No (0) Usually experience small amounts of urine leakage (that is, drops)? No (0) Usually experience difficulty emptying your bladder? No (0) Usually experience pain or discomfort in the lower abdomen or genital region? No (0) PAST MEDICAL HISTORY 05/2013: Charcot left foot due to diabetes mellitus (HCC) Comment: subsequent to left foot fracture 06/14/2023: Chronic ulcer of great toe of right foot (HCC) No date: Congestive heart failure (HCC) No date: Depression No date: Diabetes (HCC) 02/06/2020: Diabetic ulcer of posterior right heel (HCC) No date: Endometrial cancer ([facility]) 05/2013: Foot fracture, left Comment: Charcot neuroarthropathy No date: HTN (hypertension) No date: Obesity No date: NELLY (obstructive sleep apnea) No date: Renal disorder Comment: on vasotec to protect kidneys rt diabetes since 1998. 01/05/2017: Vitamin D deficiency PAST SURGICAL HISTORY 07/2022: AMPUTATION TOE,MT-P JT; Right Comment: [place] (more content not included)... [facility] (FAMDNA) SHADE BRAMBILA ([id number]) 1960 F Date Time Provider Department 04/24/24 ELDON GILL During your visit today, we recorded the following information about you: Iveth Rosales 04/24/2024 1:36 PM Signed [facility] has faxed over progress notes for patient PT for signature. The notes have been faxed several times, but they have not returned. Please return call to [phone] Porsche Murillo LPN 04/24/2024 8:11 PM Signed Orders Faxed to them on 04/13 and confirmation received. Cecile Farmer, JOSEPH 05/01/2024 2:26 PM Signed Yarelis from [facility] - PT location left on RN line States they have been trying to send progress notes without successful correspondence. Needs to be signed and returned within 30 days Has a new note that needs to be sent but unsure if she is sending to the correct fax number [phone] Called phone number and extension 2x, message states that extension is unreachable at this time unable to leave a message. Are there any outstanding notes that still need to be signed? Porsche Murillo LPN 05/01/2024 5:21 PM Signed Yarelis out of the office, spoke with another employee, she stated that it appears that they received the fax from 04/13/24 but that they are still waiting to get back the signed PT notes from 04/27/24. Advised that as soon as Dr. Gill signes those they will be faxed back to them. Porsche Murillo LPN 05/04/2024 1:11 PM Signed Faxed today and confirmation received Allergies As of Date: 04/24/2024 Noted Allergy Reaction AMOXICILLIN 11/26/2022 16 - Unknown Comments: Patient does not remember reaction CODEINE 09/26/2022 5 - Intolerance Comments: Patient states Makes her Hyper MORPHINE 08/17/2023 5 - Intolerance Comments: Difficulty waking up / groggy Date Reviewed: 04/17/2024 Reviewed by: Rimma Laws MA - Fully Assessed Reason for Visit: progress notes [Other] Prescriptions as of 05/04/2024 - fluconazole (DIFLUCAN) 150 mg tablet Take 1 tablet by mouth every 72 hours. Take one pill. If no improvement in 72 hours, take an additional dose - metFORMIN (GLUCOPHAGE) 1,000 mg tablet Take 1 tablet by mouth daily with lunch. - insulin regular human, CONCENTRATED 500 UNIT/ML, (HUMULIN R) 500 unit/mL (3 mL) inpn 40 units sc at breakfast, 100 units at lunch, 70 units at supper. - honey (MEDIHONEY) 100 % pste Apply thin layer of medihoney to bilateral lower leg wounds. Change daily. Patient should start on March 31, 2024. - ACCU-CHEK JOSE PLUS TEST STRP test strip USE TO TEST BLOOD GLUCOSE 3 TIMES DAILY - enalapril (VASOTEC) 20 mg tablet Take 0.5 tablets by mouth two times a day. - atorvastatin (LIPITOR) 80 mg tablet take 1 tablet by mouth every day - furosemide (LASIX) 20 mg tablet Take 20 mg by mouth once daily. take 20mg as needed for swelling - ascorbic acid (VITAMIN C ORAL) Take by mouth. - aspirin, enteric coated (ASPIRIN, ENTERIC COATED) 81 mg EC tablet Take 81 mg by mouth once daily. - fluticasone (FLONASE) 50 mcg/actuation nasal spray Use 2 Sprays in each nostril once daily. - cyanocobalamin, vitamin B-12, 1,000 mcg/mL kit 1,000 mcg by INJECTION(UNSPECIFIED PARENTERAL ROUTES) route once every month. - JARDIANCE 25 mg tablet take 1 tablet by mouth every day with breakfast - CPAP/BIPAP/OTHER New set up: Settings 5 - 15 cm H2O, suitable mask per pt preference, chin strap, head gear, humidity, tubing, lifetime supplies. G47.33 NELLY - Blood Pressure Monitor Please monitor blood pressure 1-2 hours after taking morning medications. - Zinc 50 mg tab Take 50 mg by mouth once daily. - multivit,thx,calcium,i nelly,mins (MULTIVITAMIN AND MINERAL ORAL) Take 1 tablet by mouth once daily. - ibuprofen (ADVIL ORAL) Take 3 tablets by mouth as needed. - FLUoxetine (PROZAC) 40 mg capsule Take by mouth q 24 HR. - lancets (ONE TOUCH DELICA) 33 gauge USE TO BLOOD GLUCOSE 3 TIMES DAILY. INSULIN DEPENDENT E11.3299, E11.65, Z79.4 - insulin needles, DISPOSABLE, (BD INSULIN PEN NEEDLE UF) 31 gauge x 5/16 FOUR DAILY FOR INSULIN INJECTIONS. - Blood-Glucose Meter mis Use to test blood glucose 3 times daily. Insulin Dependent E11.3299, E11.65, Z79.4 - Cholecalciferol, Vitamin D3, 50 mcg (2,000 unit) cap Take 1 tablet by mouth once daily. Facility-Administered Medications as of 05/04/2024 - cyanocobalamin 1,000 mcg injection Problem List As Of Date 04/24/2024 Noted Resolved Type 2 diabetes mellitus with proliferative ret*08/08/1999 Mixed hyperlipidemia [E78.2] 08/08/2012 Insulin long-term use (HCC) [Z79.4] 08/09/2012 12/12/2018 Primary hypertension [I10] 05/16/2013 Depression [F32.A] 05/16/2013 Vitamin D deficiency [E55.9] 01/05/2017 Chest pain [R07.9] 04/01/2017 03/10/2019 Obesity, Class II, BMI 35-39.9 [E66.9] 02/05/2020 02/10/2021 Diabetic ulcer o (more content not included)... Normal [facility] CNOVon 04-17-2024 CNOV Office Visit (ENDMED ) SHADE BRAMBILA ([id number]) 1960 F Date Time Provider Department 04/17/24 11:00 AM GIOVANNI CERRATO ENDJULIO During your visit today, we recorded the following information about you: Pulse Respiration Blood pressure Weight 94/minute 16/minute 142/67 102.1 kg Height 1.727 m Giovanni Cerrato MD 04/17/2024 11:16 AM Signed Follow-up 63 year-old female, patient of Dr. Eldon Gill, with insulin-requiring type 2 diabetes mellitus since 1998. Takes metformin 1000 mg every day, Jardiance, and U500 insulin pens at meals. She has a FreeTakeacoderyle CGMS. She notes no recent hypoglycemia detected by her glucose sensor. Notes she has good insulin dosing adherence, is injecting insulin 3x daily. Is checking her fingerstick glucose 3x daily, using results to guide her insulin treatment. Non-smoker, denies alcohol use. NKDA. Review of her diet shows less overindulgence in carbohydrates. Medication list, insulin doses reviewed with the patient, reconciled. Maximal lifetime weight was 260 pounds. Had diabetic eye exam in 05/2023. 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 Weight has been decreasing. Seen in ED in 03/2023 for hypotension, dizziness; furosemide discontinued. Hospitalized in 10/2023 with toe ulcer and had remaining toes removed (now functionally a TMA), 08/2023 for endometrial cancer and underwent KORI/BSO, 06/2023 for heart failure. Says high A1C was due to dietary indiscretion which she says she has improved upon. Has bilateral leg ulcers, followed by podiatry. Current Outpatient Medications on File Prior to Visit Medication Sig honey (MEDIHONEY) 100 % pste Apply thin layer of medihoney to bilateral lower leg wounds. Change daily. Patient should start on March 31, 2024. ACCU-CHEK JOSE PLUS TEST STRP test strip USE TO TEST BLOOD GLUCOSE 3 TIMES DAILY enalapril (VASOTEC) 20 mg tablet Take 0.5 tablets by mouth two times a day. atorvastatin (LIPITOR) 80 mg tablet take 1 tablet by mouth every day furosemide (LASIX) 20 mg tablet Take 20 mg by mouth once daily. take 20mg as needed for swelling metFORMIN (GLUCOPHAGE) 1,000 mg tablet TAKE 1 TABLET BY MOUTH DAILY ascorbic acid (VITAMIN C ORAL) Take by mouth. aspirin, enteric coated (ASPIRIN, ENTERIC COATED) 81 mg EC tablet Take 81 mg by mouth once daily. insulin regular human, CONCENTRATED 500 UNIT/ML, (HUMULIN R) 500 unit/mL (3 mL) inpn 40 units sc at breakfast, 100 units at lunch, 70 units at supper. fluticasone (FLONASE) 50 mcg/actuation nasal spray Use 2 Sprays in each nostril once daily as needed.) cyanocobalamin, vitamin B-12, 1,000 mcg/mL kit 1,000 mcg by INJECTION(UNSPECIFIED PARENTERAL ROUTES) route once every month. JARDIANCE 25 mg tablet take 1 tablet by mouth every day CPAP/BIPAP/OTHER New set up: Settings 5 - 15 cm H2O, suitable mask per pt preference, chin strap, head gear, humidity, tubing, lifetime supplies. G47.33 NELLY Blood Pressure Monitor Please monitor blood pressure 1-2 hours after taking morning medications. Zinc 50 mg tab Take 50 mg by mouth once daily. multivit,thx,calcium,i nelly,mins (MULTIVITAMIN AND MINERAL ORAL) Take 1 tablet by mouth once daily. ibuprofen (ADVIL ORAL) Take 3 tablets by mouth as needed. FLUoxetine (PROZAC) 40 mg capsule Take by mouth q 24 HR. lancets (ONE TOUCH DELICA) 33 gauge USE TO BLOOD GLUCOSE 3 TIMES DAILY. INSULIN DEPENDENT E11.3299, E11.65, Z79.4 insulin needles, DISPOSABLE, (BD INSULIN PEN NEEDLE UF) 31 gauge x 5/16 FOUR DAILY FOR INSULIN INJECTIONS. Blood-Glucose Meter misc Use to test blood glucose 3 times daily. Insulin Dependent E11.3299, E11.65, Z79.4 Cholecalciferol, Vitamin D3, 50 mcg (2,000 unit) cap Take 1 tablet by mouth once daily. 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 Vitamin D deficiency 01/05/2017 PAST SURGICAL HISTORY PAST SURGICAL HISTORY Procedure Laterality Date DANDC, DIAG AND/OR THERAPEUTIC x3 EXTENSIVE HAND SURGERY Dupuytren contracture TONSILLECTOMY HX Review of systems: Patient notes no weight gain, fever, weakness, change in balance or sensation, visual problems, hearing changes, dizziness, trouble swallowing, nasal difficulties, chest pain, foot or leg problems, skin lesions, abdominal pain, diarrhea, constipation, urinary problems, incontinence, back pain, joint pain (more content not included)... Normal [facility]12[facility]2024 [facility] (FAMDNA) SHADE BRAMBILA ([id number]) 1960 F Date Time Provider Department 04/06/24 2:00 PM NURSE [facility] FAMDNA During your visit today, we recorded the following information about you: Chance Camara MA 04/06/2024 1:52 PM Signed B12 Injection LOT: [id number] EXP: 08/05/25 [facility]: [id number] Verified by this ( KATIUSKA) Chance SANDERS) Allergies As of Date: 04/06/2024 Noted Allergy Reaction AMOXICILLIN 11/26/2022 16 - Unknown Comments: Patient does not remember reaction CODEINE 09/26/2022 5 - Intolerance Comments: Patient states Makes her Hyper MORPHINE 08/17/2023 5 - Intolerance Comments: Difficulty waking up / groggy Date Reviewed: 03/29/2024 Reviewed by: Shelley Kenny RN - Fully Assessed Reason for Visit: nurse visit [Other] Primary Visit Diagnosis:B12 deficiency [E53.8] Prescriptions as of 04/06/2024 - honey (MEDIHONEY) 100 % pste Apply thin layer of medihoney to bilateral lower leg wounds. Change daily. Patient should start on March 31, 2024. - ACCU-CHEK JOSE PLUS TEST STRP test strip USE TO TEST BLOOD GLUCOSE 3 TIMES DAILY - enalapril (VASOTEC) 20 mg tablet Take 0.5 tablets by mouth two times a day. - atorvastatin (LIPITOR) 80 mg tablet take 1 tablet by mouth every day - furosemide (LASIX) 20 mg tablet Take 20 mg by mouth once daily. take 20mg as needed for swelling - metFORMIN (GLUCOPHAGE) 1,000 mg tablet TAKE 1 TABLET BY MOUTH TWICE DAILY WITH MEALS. E11.3599 - ascorbic acid (VITAMIN C ORAL) Take by mouth. - aspirin, enteric coated (ASPIRIN, ENTERIC COATED) 81 mg EC tablet Take 81 mg by mouth once daily. - insulin regular human, CONCENTRATED 500 UNIT/ML, (HUMULIN R) 500 unit/mL (3 mL) inpn 50 units sc at breakfast, 100 units at lunch, 70 units at supper. - fluticasone (FLONASE) 50 mcg/actuation nasal spray Use 2 Sprays in each nostril once daily. - cyanocobalamin, vitamin B-12, 1,000 mcg/mL kit 1,000 mcg by INJECTION(UNSPECIFIED PARENTERAL ROUTES) route once every month. - JARDIANCE 25 mg tablet take 1 tablet by mouth every day with breakfast - CPAP/BIPAP/OTHER New set up: Settings 5 - 15 cm H2O, suitable mask per pt preference, chin strap, head gear, humidity, tubing, lifetime supplies. G47.33 NELLY - Blood Pressure Monitor Please monitor blood pressure 1-2 hours after taking morning medications. - Zinc 50 mg tab Take 50 mg by mouth once daily. - multivit,thx,calcium,i nelly,mins (MULTIVITAMIN AND MINERAL ORAL) Take 1 tablet by mouth once daily. - ibuprofen (ADVIL ORAL) Take 3 tablets by mouth as needed. - FLUoxetine (PROZAC) 40 mg capsule Take by mouth q 24 HR. - lancets (ONE TOUCH DELICA) 33 gauge USE TO BLOOD GLUCOSE 3 TIMES DAILY. INSULIN DEPENDENT E11.3299, E11.65, Z79.4 - insulin needles, DISPOSABLE, (BD INSULIN PEN NEEDLE UF) 31 gauge x 5/16 FOUR DAILY FOR INSULIN INJECTIONS. - Blood-Glucose Meter misc Use to test blood glucose 3 times daily. Insulin Dependent E11.3299, E11.65, Z79.4 - Cholecalciferol, Vitamin D3, 50 mcg (2,000 unit) cap Take 1 tablet by mouth once daily. Facility-Administered Medications as of 04/06/2024 - cyanocobalamin 1,000 mcg injection Problem List As Of Date 04/06/2024 Noted Resolved Type 2 diabetes mellitus with proliferative ret*08/08/1999 Mixed hyperlipidemia [E78.2] 08/08/2012 Insulin long-term use (HCC) [Z79.4] 08/09/2012 12/12/2018 Primary hypertension [I10] 05/16/2013 Depression [F32.A] 05/16/2013 Vitamin D deficiency [E55.9] 01/05/2017 Chest pain [R07.9] 04/01/2017 03/10/2019 Obesity, Class II, BMI 35-39.9 [E66.9] 02/05/2020 02/10/2021 Diabetic ulcer of posterior right heel (HCC) [E*02/06/2020 08/12/2020 Hyperglycemia [R73.9] 02/04/2021 02/10/2021 Hyponatremia [E87.1] 02/04/2021 02/04/2021 Lightheadedness [R42] 02/04/2021 02/04/2021 Malaise and fatigue [R53.81, R53.83] 02/04/2021 02/04/2021 Obesity, Class I, BMI 30-34.9 [E66.9] 02/10/2021 03/23/2022 Pain in right knee [M25.561] 02/10/2021 Obesity, Class II, BMI 35-39.9 [E66.9] 09/29/2021 09/23/2022 Albuminuria [R80.9] 09/29/2021 Peripheral artery disease (HCC) [I73.9] 01/19/2022 Venous insufficiency [I87.2] 01/19/2022 Chronic heart failure with preserved ejection f*03/23/2022 Pernicious anemia [D51.0] 09/23/2022 Obesity, Class I, BMI 30-34.9 [E66.9] 09/23/2022 NELLY (obstructive sleep apnea) [G47.33] 02/09/2023 Chronic ulcer of great toe of right foot (HCC) *06/14/2023 Endometrial cancer (HCC) [C54.1] 08/09/2023 Pre-op exam [Z01.818] 08/18/2023 Encounter Status:Closed by JESIKA GARCIA on 04/06/24 Normal [facility] PVR LEG JOSE M VAS LABon 2023 PVR LEG JOSE M VAS LAB Non-Invasive Vascula r Laboratory [facility] Lower Extremity Arterial Physiology Study Bilateral/Complete Date of service/time: 04/05/2024 10:56:20 AM Name: MS. SHADE BRAMBILA Date of : 1960 Age: 63 years Gender: F Clinical Indication Leg/foot ulceration. TECHNIQUE -------- An arterial physiological examination was performed, including measurement of blood pressures using continuous wave Doppler and recording of plethysmographic with or without Doppler waveforms at the below-mentioned limb segments. FINDINGS -------- RIGHT SIDE AT REST Right Doppler Waveforms Dorsalis pedis: Multiphasic. Post tibial: Multiphasic. Right Pressures Brachial: 154 mmHg High thigh: greater than 255 mmHg Non-compressible arteries. Low thigh: greater than 255 mmHg Non-compressible arteries. Calf: greater than 255 mmHg Non-compressible arteries. Ankle dorsalis pedis: 146 mmHg MANJEET: 0.95 Ankle posterior tibial: 197 mmHg MANJEET: 1.28 Digit: Transmetatarsal amputation. Right PVR Waveforms High thigh: Normal. Low thigh: Normal. Calf: Normal. Ankle: Normal. Transmetatarsal: Normal. Digit: Transmetatarsal amputation. LEFT SIDE AT REST Left Doppler Waveforms Dorsalis pedis: Multiphasic. Post tibial: Multiphasic. Left Pressures Brachial: 153 mmHg High thigh: greater than 255 mmHg Non-compressible arteries. Low thigh: greater than 255 mmHg Non-compressible arteries. Calf: 218 mmHg Partially non-compressible arteries. Ankle dorsalis pedis: 138 mmHg MANJEET: 0.90 Ankle posterior tibial: 108 mmHg MANJEET: 0.70 Digit: 98 mmHg Left PVR Waveforms High thigh: Normal. Low thigh: Normal. Calf: Normal. Ankle: Mildly dampened. Transmetatarsal: Moderately dampened. Digit: Moderately dampened. IMPRESSION The patient has an MANJEET consistent with a diagnosis of peripheral artery disease. Consider referral to a vascular specialist for evaluation unless already implemented. Compared to prior study of 12/22/2021, Mild disease noted, in the left lower extremity, on today's exam. RIGHT SIDE Resting right ankle brachial index: 1.28 Non-compressible arteries, MANJEET not accurate. Non-compressible vessels, results called by PVR tracings. Right ankle: Normal at rest. LEFT SIDE Resting left ankle brachial index: 0.90 Non-compressible arteries, MANJEET not accurate. Left toe brachial index: 0.64 Non-compressible vessels, results called by PVR tracings. Abnormal toe brachial index at rest is evidence of peripheral artery disease. Left ankle: Mild disease at rest. Left infrapopliteal disease. Left small vessel disease versus vasoconstriction. Technologist: Angie Celestin T Ordering physician: BERNY REYES Interpreting physician: Everardo Hicks MD, HORTENCIA Final CC ResQU Medical Image : [id number] [id number] See Link below for Image Normal [facility] Prudence 03-31-2024 DEBORAHN Telephone (FAMDNA) SHADE BRAMBILA ([id number]) 1960 F Date Time Provider Department 03/31/24 ELDON GILL During your visit today, we recorded the following information about you: Porsche Murillo LPN 03/31/2024 2:23 PM Signed PT evaluation report received from [facility]. Placed on provider desk for review and signature. Once signed fax to [phone]. Porsche Murillo LPN 04/13/2024 10:13 AM Signed Faxed and confirmation received Allergies As of Date: 03/31/2024 Noted Allergy Reaction AMOXICILLIN 11/26/2022 16 - Unknown Comments: Patient does not remember reaction CODEINE 09/26/2022 5 - Intolerance Comments: Patient states Makes her Hyper MORPHINE 08/17/2023 5 - Intolerance Comments: Difficulty waking up / groggy Date Reviewed: 03/29/2024 Reviewed by: Shelley Kenny, JOSEPH - Fully Assessed Reason for Visit: Orders [681] Cmt: PT evaluation report Prescriptions as of 04/13/2024 - honey (MEDIHONEY) 100 % pste Apply thin layer of medihoney to bilateral lower leg wounds. Change daily. Patient should start on March 31, 2024. - ACCU-CHEK JOSE PLUS TEST STRP test strip USE TO TEST BLOOD GLUCOSE 3 TIMES DAILY - enalapril (VASOTEC) 20 mg tablet Take 0.5 tablets by mouth two times a day. - atorvastatin (LIPITOR) 80 mg tablet take 1 tablet by mouth every day - furosemide (LASIX) 20 mg tablet Take 20 mg by mouth once daily. take 20mg as needed for swelling - metFORMIN (GLUCOPHAGE) 1,000 mg tablet TAKE 1 TABLET BY MOUTH TWICE DAILY WITH MEALS. E11.3599 - ascorbic acid (VITAMIN C ORAL) Take by mouth. - aspirin, enteric coated (ASPIRIN, ENTERIC COATED) 81 mg EC tablet Take 81 mg by mouth once daily. - insulin regular human, CONCENTRATED 500 UNIT/ML, (HUMULIN R) 500 unit/mL (3 mL) inpn 50 units sc at breakfast, 100 units at lunch, 70 units at supper. - fluticasone (FLONASE) 50 mcg/actuation nasal spray Use 2 Sprays in each nostril once daily. - cyanocobalamin, vitamin B-12, 1,000 mcg/mL kit 1,000 mcg by INJECTION(UNSPECIFIED PARENTERAL ROUTES) route once every month. - JARDIANCE 25 mg tablet take 1 tablet by mouth every day with breakfast - CPAP/BIPAP/OTHER New set up: Settings 5 - 15 cm H2O, suitable mask per pt preference, chin strap, head gear, humidity, tubing, lifetime supplies. G47.33 NELLY - Blood Pressure Monitor Please monitor blood pressure 1-2 hours after taking morning medications. - Zinc 50 mg tab Take 50 mg by mouth once daily. - multivit,thx,calcium,i nelly,mins (MULTIVITAMIN AND MINERAL ORAL) Take 1 tablet by mouth once daily. - ibuprofen (ADVIL ORAL) Take 3 tablets by mouth as needed. - FLUoxetine (PROZAC) 40 mg capsule Take by mouth q 24 HR. - lancets (ONE TOUCH DELICA) 33 gauge USE TO BLOOD GLUCOSE 3 TIMES DAILY. INSULIN DEPENDENT E11.3299, E11.65, Z79.4 - insulin needles, DISPOSABLE, (BD INSULIN PEN NEEDLE UF) 31 gauge x 5/16 FOUR DAILY FOR INSULIN INJECTIONS. - Blood-Glucose Meter [facility] Use to test blood glucose 3 times daily. Insulin Dependent E11.3299, E11.65, Z79.4 - Cholecalciferol, Vitamin D3, 50 mcg (2,000 unit) cap Take 1 tablet by mouth once daily. 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) [E*02/06/2020 08/12/2020 Hyperglycemia [R73.9] 02/04/2021 02/10/2021 Hyponatremia [E87.1] 02/04/2021 02/04/2021 Lightheadedness [R42] 02/04/2021 02/04/2021 Malaise and fatigue [R53.81, R53.83] 02/04/2021 02/04/2021 Obesity, Class I, BMI 30-34.9 [E66.9] 02/10/2021 03/23/2022 Pain in right knee [M25.561] 02/10/2021 Obesity, Class II, BMI 35-39.9 [E66.9] 09/29/2021 09/23/2022 Albuminuria [R80.9] 09/29/2021 Peripheral artery disease (HCC) [I73.9] 01/19/2022 Venous insufficiency [I87.2] 01/19/2022 Chronic heart failure with preserved ejection f*03/23/2022 Pernicious anemia [D51.0] 09/23/2022 Obesity, Class I, BMI 30-34.9 [E66.9] 09/23/2022 NELLY (obstructive sleep apnea) [G47.33] 02/09/2023 Chronic ulcer of great toe of right foot (HCC) *06/14/2023 Endometrial cancer (HCC) [C54.1] 08/09/2023 Pre-op exam [Z01.818] 08/18/2023 Encounter Status:Closed by PORSCHE UMRILLO on 04/13/24 [facility] Prudence 03-30-2024 [facility] SHADE BRAMBILA ([id number]) 1960 F Date Time Provider Department 03/30/24 ELDON GILL During your visit today, we recorded the following information about you: Jesika Garcia MA 03/30/2024 2:32 PM Signed Received 03-29-24 from . Placed in provider's inbox for review. Route to KATIUSKA scanning Allergies As of Date: 03/30/2024 Noted Allergy Reaction AMOXICILLIN 11/26/2022 16 - Unknown Comments: Patient does not remember reaction CODEINE 09/26/2022 5 - Intolerance Comments: Patient states Makes her Hyper MORPHINE 08/17/2023 5 - Intolerance Comments: Difficulty waking up / groggy Date Reviewed: 03/29/2024 Reviewed by: Shelley Kenny RN - Fully Assessed Reason for Visit: Patient Update [1234] Prescriptions as of 03/30/2024 - ACCU-CHEK JOSE PLUS TEST STRP test strip USE TO TEST BLOOD GLUCOSE 3 TIMES DAILY - enalapril (VASOTEC) 20 mg tablet Take 0.5 tablets by mouth two times a day. - atorvastatin (LIPITOR) 80 mg tablet take 1 tablet by mouth every day - furosemide (LASIX) 20 mg tablet Take 20 mg by mouth once daily. take 20mg as needed for swelling - metFORMIN (GLUCOPHAGE) 1,000 mg tablet TAKE 1 TABLET BY MOUTH TWICE DAILY WITH MEALS. E11.3599 - ascorbic acid (VITAMIN C ORAL) Take by mouth. - aspirin, enteric coated (ASPIRIN, ENTERIC COATED) 81 mg EC tablet Take 81 mg by mouth once daily. - insulin regular human, CONCENTRATED 500 UNIT/ML, (HUMULIN R) 500 unit/mL (3 mL) inpn 50 units sc at breakfast, 100 units at lunch, 70 units at supper. - fluticasone (FLONASE) 50 mcg/actuation nasal spray Use 2 Sprays in each nostril once daily. - cyanocobalamin, vitamin B-12, 1,000 mcg/mL kit 1,000 mcg by INJECTION(UNSPECIFIED PARENTERAL ROUTES) route once every month. - JARDIANCE 25 mg tablet take 1 tablet by mouth every day with breakfast - CPAP/BIPAP/OTHER New set up: Settings 5 - 15 cm H2O, suitable mask per pt preference, chin strap, head gear, humidity, tubing, lifetime supplies. G47.33 NELLY - Blood Pressure Monitor Please monitor blood pressure 1-2 hours after taking morning medications. - Zinc 50 mg tab Take 50 mg by mouth once daily. - multivit,thx,calcium,i nelly,mins (MULTIVITAMIN AND MINERAL ORAL) Take 1 tablet by mouth once daily. - ibuprofen (ADVIL ORAL) Take 3 tablets by mouth as needed. - FLUoxetine (PROZAC) 40 mg capsule Take by mouth q 24 HR. - lancets (ONE TOUCH DELICA) 33 gauge USE TO BLOOD GLUCOSE 3 TIMES DAILY. INSULIN DEPENDENT E11.3299, E11.65, Z79.4 - insulin needles, DISPOSABLE, (BD INSULIN PEN NEEDLE UF) 31 gauge x 5/16 FOUR DAILY FOR INSULIN INJECTIONS. - Blood-Glucose Meter misc Use to test blood glucose 3 times daily. Insulin Dependent E11.3299, E11.65, Z79.4 - Cholecalciferol, Vitamin D3, 50 mcg (2,000 unit) cap Take 1 tablet by mouth once daily. 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) [E*02/06/2020 08/12/2020 Hyperglycemia [R73.9] 02/04/2021 02/10/2021 Hyponatremia [E87.1] 02/04/2021 02/04/2021 Lightheadedness [R42] 02/04/2021 02/04/2021 Malaise and fatigue [R53.81, R53.83] 02/04/2021 02/04/2021 Obesity, Class I, BMI 30-34.9 [E66.9] 02/10/2021 03/23/2022 Pain in right knee [M25.561] 02/10/2021 Obesity, Class II, BMI 35-39.9 [E66.9] 09/29/2021 09/23/2022 Albuminuria [R80.9] 09/29/2021 Peripheral artery disease (HCC) [I73.9] 01/19/2022 Venous insufficiency [I87.2] 01/19/2022 Chronic heart failure with preserved ejection f*03/23/2022 Pernicious anemia [D51.0] 09/23/2022 Obesity, Class I, BMI 30-34.9 [E66.9] 09/23/2022 NELLY (obstructive sleep apnea) [G47.33] 02/09/2023 Chronic ulcer of great toe of right foot (HCC) *06/14/2023 Endometrial cancer (HCC) [C54.1] 08/09/2023 Pre-op exam [Z01.818] 08/18/2023 Encounter Status:Closed by JESIKA GARCIA on 03/30/24 [facility] CNOVon 03-29-2024 [facility] CNPNon 03-22-2024 CNPN Telephone (IM[facility]) SHADE BRAMBILA ([id number]) 1960 F Date Time Provider Department 03/22/24 ELDON GILL [facility] During your visit today, we recorded the following information about you: Allergies As of Date: 03/22/2024 Noted Allergy Reaction AMOXICILLIN 11/26/2022 16 - Unknown Comments: Patient does not remember reaction CODEINE 09/26/2022 5 - Intolerance Comments: Patient states Makes her Hyper MORPHINE 08/17/2023 5 - Intolerance Comments: Difficulty waking up / groggy Date Reviewed: 03/13/2024 Reviewed by: Lucia Benitez, JOSEPH - Fully Assessed Reason for Visit: Diabetic Eye Exam [3566] Cmt: [facility] Prescriptions as of 04/05/2024 - honey (MEDIHONEY) 100 % pste Apply thin layer of medihoney to bilateral lower leg wounds. Change daily. Patient should start on March 31, 2024. - ACCU-CHEK JOSE PLUS TEST STRP test strip USE TO TEST BLOOD GLUCOSE 3 TIMES DAILY - enalapril (VASOTEC) 20 mg tablet Take 0.5 tablets by mouth two times a day. - atorvastatin (LIPITOR) 80 mg tablet take 1 tablet by mouth every day - furosemide (LASIX) 20 mg tablet Take 20 mg by mouth once daily. take 20mg as needed for swelling - metFORMIN (GLUCOPHAGE) 1,000 mg tablet TAKE 1 TABLET BY MOUTH TWICE DAILY WITH MEALS. E11.3599 - ascorbic acid (VITAMIN C ORAL) Take by mouth. - aspirin, enteric coated (ASPIRIN, ENTERIC COATED) 81 mg EC tablet Take 81 mg by mouth once daily. - insulin regular human, CONCENTRATED 500 UNIT/ML, (HUMULIN R) 500 unit/mL (3 mL) inpn 50 units sc at breakfast, 100 units at lunch, 70 units at supper. - fluticasone (FLONASE) 50 mcg/actuation nasal spray Use 2 Sprays in each nostril once daily. - cyanocobalamin, vitamin B-12, 1,000 mcg/mL kit 1,000 mcg by INJECTION(UNSPECIFIED PARENTERAL ROUTES) route once every month. - JARDIANCE 25 mg tablet take 1 tablet by mouth every day with breakfast - CPAP/BIPAP/OTHER New set up: Settings 5 - 15 cm H2O, suitable mask per pt preference, chin strap, head gear, humidity, tubing, lifetime supplies. G47.33 NELLY - Blood Pressure Monitor Please monitor blood pressure 1-2 hours after taking morning medications. - Zinc 50 mg tab Take 50 mg by mouth once daily. - multivit,thx,calcium,i nelly,mins (MULTIVITAMIN AND MINERAL ORAL) Take 1 tablet by mouth once daily. - ibuprofen (ADVIL ORAL) Take 3 tablets by mouth as needed. - FLUoxetine (PROZAC) 40 mg capsule Take by mouth q 24 HR. - lancets (ONE TOUCH DELICA) 33 gauge USE TO BLOOD GLUCOSE 3 TIMES DAILY. INSULIN DEPENDENT E11.3299, E11.65, Z79.4 - insulin needles, DISPOSABLE, (BD INSULIN PEN NEEDLE UF) 31 gauge x 5/16 FOUR DAILY FOR INSULIN INJECTIONS. - Blood-Glucose Meter [facility] Use to test blood glucose 3 times daily. Insulin Dependent E11.3299, E11.65, Z79.4 - Cholecalciferol, Vitamin D3, 50 mcg (2,000 unit) cap Take 1 tablet by mouth once daily. 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) [E*02/06/2020 08/12/2020 Hyperglycemia [R73.9] 02/04/2021 02/10/2021 Hyponatremia [E87.1] 02/04/2021 02/04/2021 Lightheadedness [R42] 02/04/2021 02/04/2021 Malaise and fatigue [R53.81, R53.83] 02/04/2021 02/04/2021 Obesity, Class I, BMI 30-34.9 [E66.9] 02/10/2021 03/23/2022 Pain in right knee [M25.561] 02/10/2021 Obesity, Class II, BMI 35-39.9 [E66.9] 09/29/2021 09/23/2022 Albuminuria [R80.9] 09/29/2021 Peripheral artery disease (HCC) [I73.9] 01/19/2022 Venous insufficiency [I87.2] 01/19/2022 Chronic heart failure with preserved ejection f*03/23/2022 Pernicious anemia [D51.0] 09/23/2022 Obesity, Class I, BMI 30-34.9 [E66.9] 09/23/2022 NELLY (obstructive sleep apnea) [G47.33] 02/09/2023 Chronic ulcer of great toe of right foot (HCC) *06/14/2023 Endometrial cancer (HCC) [C54.1] 08/09/2023 Pre-op exam [Z01.818] 08/18/2023 Encounter Status:Closed by JANET GARCIA on 04/05/24 [facility] 03-20-2024 CNPN Telephone (FAMDNA) SHADE BRAMBILA ([id number]) 1960 F Date Time Provider Department 03/20/24 [facility]ILL [facility] During your visit today, we recorded the following information about you: Pari Zhang 03/20/2024 2:12 PM Signed Shade is calling Eldon Gill DO today with concern regarding Orders (Physical Therapy Order Balance/[place] FAX [phone]) Patient has been identified by name and birthdate. Duration of symptoms: N/A Person calling: [facility] Was an appointment scheduled: No Closing statement: Results or non-symptom based questions: Thank you for calling [facility], your call will be returned within the next business day. Porsche Boyce LPN 03/20/2024 3:20 PM Signed PT order, office visit notes and face sheet with insurance information faxed to [facility]. Confirmation received. PT order from August 2023, does not till August 2024. Allergies As of Date: 03/20/2024 Noted Allergy Reaction AMOXICILLIN 11/26/2022 16 - Unknown Comments: Patient does not remember reaction CODEINE 09/26/2022 5 - Intolerance Comments: Patient states Makes her Hyper MORPHINE 08/17/2023 5 - Intolerance Comments: Difficulty waking up / groggy Date Reviewed: 03/13/2024 Reviewed by: Lucia Benitez RN - Fully Assessed Reason for Visit: Orders [731] Cmt: Physical Therapy Order Balance/[place] FAX [phone] Prescriptions as of 03/20/2024 - ACCU-CHEK JOSE PLUS TEST STRP test strip USE TO TEST BLOOD GLUCOSE 3 TIMES DAILY - enalapril (VASOTEC) 20 mg tablet Take 0.5 tablets by mouth two times a day. - atorvastatin (LIPITOR) 80 mg tablet take 1 tablet by mouth every day - furosemide (LASIX) 20 mg tablet Take 20 mg by mouth once daily. take 20mg as needed for swelling - metFORMIN (GLUCOPHAGE) 1,000 mg tablet TAKE 1 TABLET BY MOUTH TWICE DAILY WITH MEALS. E11.3599 - ascorbic acid (VITAMIN C ORAL) Take by mouth. - aspirin, enteric coated (ASPIRIN, ENTERIC COATED) 81 mg EC tablet Take 81 mg by mouth once daily. - insulin regular human, CONCENTRATED 500 UNIT/ML, (HUMULIN R) 500 unit/mL (3 mL) inpn 50 units sc at breakfast, 100 units at lunch, 70 units at supper. - fluticasone (FLONASE) 50 mcg/actuation nasal spray Use 2 Sprays in each nostril once daily. - cyanocobalamin, vitamin B-12, 1,000 mcg/mL kit 1,000 mcg by INJECTION(UNSPECIFIED PARENTERAL ROUTES) route once every month. - JARDIANCE 25 mg tablet take 1 tablet by mouth every day with breakfast - CPAP/BIPAP/OTHER New set up: Settings 5 - 15 cm H2O, suitable mask per pt preference, chin strap, head gear, humidity, tubing, lifetime supplies. G47.33 NELLY - Blood Pressure Monitor Please monitor blood pressure 1-2 hours after taking morning medications. - Zinc 50 mg tab Take 50 mg by mouth once daily. - multivit,thx,calcium,i nelly,mins (MULTIVITAMIN AND MINERAL ORAL) Take 1 tablet by mouth once daily. - ibuprofen (ADVIL ORAL) Take 3 tablets by mouth as needed. - FLUoxetine (PROZAC) 40 mg capsule Take by mouth q 24 HR. - lancets (ONE TOUCH DELICA) 33 gauge USE TO BLOOD GLUCOSE 3 TIMES DAILY. INSULIN DEPENDENT E11.3299, E11.65, Z79.4 - insulin needles, DISPOSABLE, (BD INSULIN PEN NEEDLE UF) 31 gauge x 5/16 FOUR DAILY FOR INSULIN INJECTIONS. - Blood-Glucose Meter [facility] Use to test blood glucose 3 times daily. Insulin Dependent E11.3299, E11.65, Z79.4 - Cholecalciferol, Vitamin D3, 50 mcg (2,000 unit) cap Take 1 tablet by mouth once daily. 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) [E*02/06/2020 08/12/2020 Hyperglycemia [R73.9] 02/04/2021 02/10/2021 Hyponatremia [E87.1] 02/04/2021 02/04/2021 Lightheadedness [R42] 02/04/2021 02/04/2021 Malaise and fatigue [R53.81, R53.83] 02/04/2021 02/04/2021 Obesity, Class I, BMI 30-34.9 [E66.9] 02/10/2021 03/23/2022 Pain in right knee [M25.561] 02/10/2021 Obesity, Class II, BMI 35-39.9 [E66.9] 09/29/2021 09/23/2022 Albuminuria [R80.9] 09/29/2021 Peripheral artery disease (HCC) [I73.9] 01/19/2022 Venous insufficiency [I87.2] 01/19/2022 Chronic heart failure with preserved ejection f*03/23/2022 Pernicious anemia [D51.0] 09/23/2022 Obesity, Class I, BMI 30-34.9 [E66.9] 09/23/2022 NELLY (obstructive sleep apnea) [G47.33] 02/09/2023 Chronic ulcer of great toe of right foot (HCC) *06/14/2023 Endometria (more content not included)... Normal [facility] CNOVon 03-13-2024 CNOV [facility] CNPNon 03-13-2024 CNPN [facility] HbA1c (Bld)on 03-13-2024 Average glucose Estimated from glycated hemoglobin (Bld) [Mass/Vol] 235 mg/dL [facility] Comment on above: Order Comment: Lisbet ojeda Type: BLOOD SPECIMENOrdering Facility: [facility] Address: [address] [place] [address] Result Comment: eAG: (Estimated average glucose) is a calculated value from HgbA1c and is business center representative of the average blood glucose level in the last 2-3 month period. Performed By: #### 5 5454-3 ####[facility] LABCLIA [id number] [place] [address] [place] HbA1c (Bld) [Mass fraction] 9.8 % High 4.3-5.6 [facility] Comment on above: Order Comment: Lisbet ojeda Type: BLOOD SPECIMENOrdering Facility: [facility] Address: [address] [place] [address] Result Comment: Amer [place] Diabetes Association guidelines indicate that patients with HgbA1c in the range 5.7-6.4% are at increased risk for development of diabetes, and intervention by lifestyle modification may be beneficial. HgbA1c greater or equal to 6.5% is considered diagnostic of diabetes. Performed By: #### 5 5454-3 ####[facility] LABCLIA [id number] [place] [address] [place] Prealb SerPl-mCncon 03-13-20 Prealbumin [Mass/Vol] 13 mg/dL Low 17-36 [facility] Comment on above: Order Comment: Speci men Type: BLOOD SPECIMENOrdering Facility: [facility] Address: [address] [place] [address] Performed By: #### 1 4338-8 ####[facility] LABCLIA [id number] [address] [id number] [id number] [place] CNNURSEon 03-06-2024 CNNURSE Nurse Visit (FAMDNA) SHADE BRAMBILA ([id number]) 1960 F Date Time Provider Department 03/06/24 3:00 PM NURSE [facility] FAM[facility] During your visit today, we recorded the following information about you: Allergies As of Date: 03/06/2024 Noted Allergy Reaction AMOXICILLIN 11/26/2022 16 - Unknown Comments: Patient does not remember reaction CODEINE 09/26/2022 5 - Intolerance Comments: Patient states Makes her Hyper MORPHINE 08/17/2023 5 - Intolerance Comments: Difficulty waking up / groggy Date Reviewed: 03/01/2024 Reviewed by: Leanna Harrison, RN - Fully Assessed Primary Visit Diagnosis:Vitamin B 12 deficiency [E53.8] Prescriptions as of 03/06/2024 - enalapril (VASOTEC) 20 mg tablet Take 0.5 tablets by mouth two times a day. - atorvastatin (LIPITOR) 80 mg tablet take 1 tablet by mouth every day - furosemide (LASIX) 20 mg tablet Take 20 mg by mouth once daily. take 20mg as needed for swelling - metFORMIN (GLUCOPHAGE) 1,000 mg tablet TAKE 1 TABLET BY MOUTH TWICE DAILY WITH MEALS. E11.3599 - Senna 8.6 mg tab Take 1 tablet by mouth once daily. - ascorbic acid (VITAMIN C ORAL) Take by mouth. - aspirin, enteric coated (ASPIRIN, ENTERIC COATED) 81 mg EC tablet Take 81 mg by mouth once daily. - insulin regular human, CONCENTRATED 500 UNIT/ML, (HUMULIN R) 500 unit/mL (3 mL) inpn 50 units sc at breakfast, 100 units at lunch, 70 units at supper. - fluticasone (FLONASE) 50 mcg/actuation nasal spray Use 2 Sprays in each nostril once daily. - cyanocobalamin, vitamin B-12, 1,000 mcg/mL kit 1,000 mcg by INJECTION(UNSPECIFIED PARENTERAL ROUTES) route once every month. - JARDIANCE 25 mg tablet take 1 tablet by mouth every day with breakfast - CPAP/BIPAP/OTHER New set up: Settings 5 - 15 cm H2O, suitable mask per pt preference, chin strap, head gear, humidity, tubing, lifetime supplies. G47.33 NELLY - Blood Pressure Monitor Please monitor blood pressure 1-2 hours after taking morning medications. - Zinc 50 mg tab Take 50 mg by mouth once daily. - multivit,thx,calcium,i nelly,mins (MULTIVITAMIN AND MINERAL ORAL) Take 1 tablet by mouth once daily. - blood sugar diagnostic (ACCU-CHEK JOSE PLUS TEST STRP) test strip USE TO TEST BLOOD GLUCOSE 3 TIMES DAILY. - ibuprofen (ADVIL ORAL) Take 3 tablets by mouth as needed. - FLUoxetine (PROZAC) 40 mg capsule Take by mouth q 24 HR. - lancets (ONE TOUCH DELICA) 33 gauge USE TO BLOOD GLUCOSE 3 TIMES DAILY. INSULIN DEPENDENT E11.3299, E11.65, Z79.4 - insulin needles, DISPOSABLE, (BD INSULIN PEN NEEDLE UF) 31 gauge x 5/16 FOUR DAILY FOR INSULIN INJECTIONS. - Blood-Glucose Meter misc Use to test blood glucose 3 times daily. Insulin Dependent E11.3299, E11.65, Z79.4 - Cholecalciferol, Vitamin D3, 50 mcg (2,000 unit) cap Take 1 tablet by mouth once daily. 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) [E*02/06/2020 08/12/2020 Hyperglycemia [R73.9] 02/04/2021 02/10/2021 Hyponatremia [E87.1] 02/04/2021 02/04/2021 Lightheadedness [R42] 02/04/2021 02/04/2021 Malaise and fatigue [R53.81, R53.83] 02/04/2021 02/04/2021 Obesity, Class I, BMI 30-34.9 [E66.9] 02/10/2021 03/23/2022 Pain in right knee [M25.561] 02/10/2021 Obesity, Class II, BMI 35-39.9 [E66.9] 09/29/2021 09/23/2022 Albuminuria [R80.9] 09/29/2021 Peripheral artery disease (HCC) [I73.9] 01/19/2022 Venous insufficiency [I87.2] 01/19/2022 Chronic heart failure with preserved ejection f*03/23/2022 Pernicious anemia [D51.0] 09/23/2022 Obesity, Class I, BMI 30-34.9 [E66.9] 09/23/2022 NELLY (obstructive sleep apnea) [G47.33] 02/09/2023 Chronic ulcer of great toe of right foot (HCC) *06/14/2023 Endometrial cancer (HCC) [C54.1] 08/09/2023 Pre-op exam [Z01.818] 08/18/2023 Encounter Status:Closed by JULIET STANLEY on 03/06/24 [facility] 03-06-2024 CNOV Office Visit (CARDMM ) SHADE BRAMBILA ([id number]) 1960 F Date Time Provider Department 03/06/24 3:30 PM SHANEL NEWELL During your visit today, we recorded the following information about you: Pulse Blood pressure Weight 90/minute 136/80 106.5 kg Shanel Newell APRN.HEEL CURVER 03/06/2024 3:44 PM Signed [facility] Department of Cardiovascular Medicine SECTION OF CLINICAL CARDIOLOGY OUTPATIENT VISIT DATE March 06, 2024 OUTPATIENT VISIT TYPE ESTABLISHED PRIMARY CARE PHYSICIAN: Eldon Gill [address] [place] [address] / [place] [address] CHIEF COMPLAINT: 3 month follow up HISTORY OF PRESENT ILLNESS: Ms. Brambila is a 63 year old female with history of chronic HFpEF, HTN, HLD, peripheral vascular disease, NELLY, and diabetes mellitus type 2 who presents today for a cardiovascular medicine follow-up visit. She was last seen in the office by Dr. Sadler on 12/01/2023 following recent emergency department visit in which she was found to have dramatically elevated BNP in the 5000's with shortness of breath that improved with IV Lasix. At that time she was encouraged to continue Lasix 20 mg daily with follow-up with the CHF clinic in 1 to 2 weeks thereafter to assess fluid status. She was additionally noted to be hypertensive for which her enalapril dose was increased to 20 mg daily. She was seen by the CHF clinic on 12/17/2023 at which time she appeared to be euvolemic and her Lasix dosing was returned to her baseline as needed. She has had no hospitalizations or procedures since her last office visit. She does not feel as though she has been holding onto any extra fluid. She has not been weighing herself daily at home. She has been following with the wound center as she has 4 sores on her legs and is scheduled to have some vascular testing in the upcoming future. She is not monitoring her blood pressure at home. She continues to not use her CPAP as she struggles with feeling claustrophobic with it on. She denies any shortness of breath, chest pain, lower extremity edema, orthopnea, PND, lightheadedness, dizziness, syncope, or syncope. Subjective PAST MEDICAL HISTORY Diagnosis Date Charcot left foot due to diabetes mellitus (HCC) 05/2013 subsequent to left foot fracture Congestive heart failure (HCC) Depression Diabetes (HCC) Diabetic ulcer of posterior right heel (HCC) 02/06/2020 Endometrial cancer (HCC) Foot fracture, left 05/2013 Charcot neuroarthropathy HTN (hypertension) Obesity NELLY (obstructive sleep apnea) Renal disorder on vasotec to protect kidneys rt diabetes since 1998. Vitamin D deficiency 01/05/2017 PAST SURGICAL HISTORY Procedure Laterality Date AMPUTATION TOE,MT-P JT Right 07/2022 Hallux DILATION AND CURETTAGE DXAND/THER NONOBSTETRIC x3 EXTENSIVE HAND SURGERY Dupuytren contracture TONSILLECTOMY HX Social History Tobacco Use Smoking status: Never Passive exposure: Never Smokeless tobacco: Never Vaping Use Vaping Use: Never used Substance Use Topics Alcohol use: Yes Comment: Occ - 3 glasses of wine a year Drug use: No FAMILY HISTORY Problem Relation Age of Onset Hypertension Mother other (polycystic kidney disease) Mother Heart Father CHF Hypertension Father Diabetes Brother other (testicular cancer) Brother Coronary Artery Disease Brother MD and at age 45 other (CHF) Paternal Grandmother Cancer Paternal Aunt breast [place] ALLERGIES: ALLERGIES Allergen Reactions Amoxicillin Unknown Patient does not remember reaction Codeine Intolerance Patient states Makes her Hyper Morphine Intolerance Difficulty waking up / groggy MEDICATIONS: enalapril (VASOTEC) 20 mg tabletTake 0.5 tablets by mouth two times a day.Disp: Rfl: atorvastatin (LIPITOR) 80 mg tablettake 1 tablet by mouth every dayDisp: 90 tabletRfl: 3 furosemide (LASIX) 20 mg tabletTake 20 mg by mouth once daily. take 20mg as needed for swellingDisp: Rfl: metFORMIN (GLUCOPHAGE) 1,000 mg tabletTAKE 1 TABLET BY MOUTH TWICE DAILY WITH MEALS. E11.3599Disp: 180 tabletRfl: 3 ascorbic acid (VITAMIN C ORAL)Take by mouth.Disp: Rfl: aspirin, enteric coated (ASPIRIN, ENTERIC COATED) 81 mg EC tabletTake 81 mg by mouth once daily.Disp: Rfl: insulin regular human, CONCENTRATED 500 UNIT/ML, (HUMULIN R) 500 unit/mL (3 mL) inpn50 units sc at breakfast, 100 units at lunch, 70 units at supper.Disp: 42 mLRfl: 3 fluticasone (FLONASE) 50 mcg/actuation nasal sprayUse 2 Sprays in each nostril once daily.Disp: 1 EachRfl: 3 (Patient taking differently: Use 2 Sprays in each nostril as needed.) cyanocobalamin, vitamin B-12, 1,000 mcg/mL kit1,000 mcg by INJECTION(UNSPECIFIED PARENTERAL ROUTES) route once every month.Disp: Rfl: JARDIANCE 25 mg tablettak (more content not included)... Normal [facility] CNOVon 03-01-2024 CNOV [facility] CNOVSPon 02-24-2024 CNOVSP Visit (SP) Office (TRACE) SHADE BRAMBILA ([id number]) 1960 F Date Time Provider Department 02/24/24 11:00 AM ALFREDO UREÑA During your visit today, we recorded the following information about you: Temperature Pulse Blood pressure Weight 98.3 degrees 73/minute 132/75 102.1 kg Alfredo Ureña MD 02/24/2024 2:35 PM Signed Gynecologic Oncology Note [facility] Chief complaint: Surveillance HPI: This is a 63 year old with h/o 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 Denies concerns today. No intervening surgeries. Has some balance issues and planning on PT. Wished to discuss intercourse and any restrictions she may have. Has met someone that she has been talking to. No N/V/C/D. Good appetite. No VB/VD. Oncologic History: Oncology History Endometrial cancer (HCC) 08/09/2023 Initial Diagnosis Endometrial cancer (HCC) 08/19/2023 Surgery RA-TLH/BSO, cystoscopy. Non-mapping sentinel nodes, frozen FIGO grade 1 and < 50 % myoinvasion. Lymph node dissection deferred. Final stage IA (IA2 -2022). MMR intact. ROS: All other medical and surgical histories reviewed and updated. PE: BP 132/75 (BP Site: Right Arm, BP Position: Sitting, BP Cuff Size: Extra Large Adult) Pulse 73 Temp 36.8 ?C (98.3 ?F) (Oral) Wt 102.1 kg (225 lb) SpO2 95% BMI 34.21 kg/m? Gen: well appearing, alert Abd: soft, incisions well healed, non-distended Pelvic: typical atrophic changes in vagina, cuff well healed, non-tender symmetrical erythema and thickening of vulva consistent with dermatitis. No nodularity on bimanual exam. Rectal: deferred Ext: non-tender Lab/Imaging: A. Uterus, cervix, bilateral fallopian tubes and ovaries, total robotic laparoscopic hysterectomy with bilateral salpingo-oophorectomy: -- Endometrium: Endometrial adenocarcinoma, endometrioid type FIGO grade 1, invades 31% (6/19 mm) of myometrium, see comment and case summary. -- Myometrium: Leiomyoma and adenomyosis. -- Cervix: Negative for cervical stromal involvement. -- Bilateral fallopian tubes: Negative for carcinoma. -- Bilateral ovaries: Bilateral fibrothecoma A/P: This is a 63 year old stage IA2 FIGO grade 1 EAC of the uterus here for sruvellance Endometrial cancer: - DEA - MMR intact - RTC in 3 months Vulvo-vaginal care: - No restrictions on intercourse - Advised Aquaphor for vulvar skin care - Advised lubricants during intercourse Urinary incontinence, nocturnal - Urogynecology in March Alfredo Ureña MD, MPH Gynecologic Oncologist Medical Decision Making: Problems: Minimal: Self-limited or minor problem Low: Stable chronic illness Risk: Low: Low risk from testing/treatment Medical Decision Making Level: 3 - Low Stephenie Levi MD 02/24/2024 11:32 AM Addendum Astroglide lubricant during sex. You might need multiple applications of lubricant during sex. Aquaphor for the vulva and outside skin areas. Lubricants and moisturizers list Modified from the office of Lacey Fitzgerald The [id number] vaginal moisturizer and lubricant products can be confusing to sort through, especially since there are no FDA requirements for how they can be marketed or labeled. In general there are 3 categories of products: Vaginal lubricants should be used at the time of intercourse to decrease friction. Long acting vaginal moisturizers are used at least twice weekly to increase vaginal (internal) lubrication and elasticity. Vulvar moisturizers are for external use for vulvar comfort and do not impact vaginal lubrication or elasticity. Vaseline petroleum products and oils (baby oil, coconut, olive oil,) can make condoms break, so should not be used with condoms. In many women, these can cause infections. However, if you have sore spots on the vulva (outer lips), then petroleum jelly can sometimes be helpful. All of the products listed below are over the counter. Many can be bought in any drugstore or online. Also, many [employer] stores do carry high-quality lubricant products. RESEARCH REGARDING LUBRICANTS: -Journal of Sexual Medicine 2013. Lubricants: decrease pain but also add pleaseure, comfort and orgasm - 95% experienced greater sexual comfort - 94% experiences greater sexual pleasure - users of lubrication also endorsed greater ease of orgasm VAGINAL LUBRICANTS: (For use during sexual activity) Lubricants should be applied to the outside and opening of the vagina at the time of sexual activity. The lubricant can also be applied to the penis or a device. Silicone based lubricants should not be used on silicone vibrators or toys. Both silicone and water based lubricants are condom compatible. If you use a water based lubricant, it is also important to choose a lubricant with low osmolality since lubricants with h (more content not included)... Normal [facility] CNOVon 02-09-2024 CNOV Office Visit (FAMDNA ) SHADE BRAMBILA ([id number]) 1960 F Date Time Provider Department 02/09/24 2:00 PM ELDON GILL During your visit today, we recorded the following information about you: Temperature Pulse Respiration Blood pressure 97 degrees 74/minute 18/minute 126/71 Weight Height 101.2 kg 1.727 m Eldon Gill DO 03/11/2024 11:56 AM Signed 63 year old female presenting for follow up I have fully reviewed the past medical, surgical, social and family history and updated the Histories section of [facility]. Type 2 Diabetes Follow up: Fasting blood sugars: Pre-meal blood sugars: Low blood sugars: Medication compliance: Diet: Exercise: Increased urination, hunger, thirst, weight changes: no Hemoglobin A1c 8.3 10/07/2023 Hemoglobin A1c 9.1 08/09/2023 Hemoglobin A1c 7.9 06/14/2023 Continue with endocrine Current Outpatient Medications on File Prior to Visit: Current Outpatient Medications Medication Sig Dispense Refill enalapril (VASOTEC) 20 mg tablet Take 0.5 tablets by mouth two times a day. atorvastatin (LIPITOR) 80 mg tablet take 1 tablet by mouth every day 90 tablet 3 furosemide (LASIX) 20 mg tablet Take 20 mg by mouth once daily. Take 20 mg daily x 7 days after 11/29/23 ED visit metFORMIN (GLUCOPHAGE) 1,000 mg tablet TAKE 1 TABLET BY MOUTH TWICE DAILY WITH MEALS. E11.3599 180 tablet 3 Senna 8.6 mg tab Take 1 tablet by mouth once daily. 60 tablet 0 ascorbic acid (VITAMIN C ORAL) Take by mouth. aspirin, enteric coated (ASPIRIN, ENTERIC COATED) 81 mg EC tablet Take 81 mg by mouth once daily. insulin regular human, CONCENTRATED 500 UNIT/ML, (HUMULIN R) 500 unit/mL (3 mL) inpn 50 units sc at breakfast, 100 units at lunch, 70 units at supper. 42 mL 3 fluticasone (FLONASE) 50 mcg/actuation nasal spray Use 2 Sprays in each nostril once daily. (Patient taking differently: Use 2 Sprays in each nostril as needed.) 1 Each 3 cyanocobalamin, vitamin B-12, 1,000 mcg/mL kit 1,000 mcg by INJECTION(UNSPECIFIED PARENTERAL ROUTES) route once every month. JARDIANCE 25 mg tablet take 1 tablet by mouth every day with breakfast (Patient taking differently: Take 25 mg by mouth daily with lunch.) 90 tablet 3 CPAP/BIPAP/OTHER New set up: Settings 5 - 15 cm H2O, suitable mask per pt preference, chin strap, head gear, humidity, tubing, lifetime supplies. G47.33 NELLY 1 Each 0 Blood Pressure Monitor Please monitor blood pressure 1-2 hours after taking morning medications. 1 Kit 0 Zinc 50 mg tab Take 50 mg by mouth once daily. multivit,thx,calcium,i nelly,mins (MULTIVITAMIN AND MINERAL ORAL) Take 1 tablet by mouth once daily. blood sugar diagnostic (ACCU-CHEK JOSE PLUS TEST STRP) test strip USE TO TEST BLOOD GLUCOSE 3 TIMES DAILY. 300 Strip 1 ibuprofen (ADVIL ORAL) Take 3 tablets by mouth as needed. FLUoxetine (PROZAC) 40 mg capsule Take by mouth q 24 HR. lancets (ONE TOUCH DELICA) 33 gauge USE TO BLOOD GLUCOSE 3 TIMES DAILY. INSULIN DEPENDENT E11.3299, E11.65, Z79.4 300 Each 3 insulin needles, DISPOSABLE, (BD INSULIN PEN NEEDLE UF) 31 gauge x 5/16 FOUR DAILY FOR INSULIN INJECTIONS. 400 Each 1 Blood-Glucose Meter misc Use to test blood glucose 3 times daily. Insulin Dependent E11.3299, E11.65, Z79.4 1 Each 0 Cholecalciferol, Vitamin D3, 50 mcg (2,000 unit) cap Take 1 tablet by mouth once daily. Current Facility-Administered Medications Medication Dose Route Frequency Provider Last Rate Last Admin cyanocobalamin 1,000 mcg injection 1,000 mcg INTRAMUSCULAR q 4 WEEKS Eldon Gill DO 1,000 mcg at 01/11/24 1405 ALLERGIES Allergen Reactions Amoxicillin Unknown Patient does not remember reaction Codeine Intolerance Patient states Makes her Hyper Morphine Intolerance Difficulty waking up / groggy PAST SURGICAL HISTORY Procedure Laterality Date AMPUTATION TOE,MT-P JT Right 07/2022 Hallux DILATION AND CURETTAGE DXAND/THER NONOBSTETRIC x3 EXTENSIVE HAND SURGERY Dupuytren contracture TONSILLECTOMY HX Social history reviewed in [facility]. REVIEW OF SYSTEMS: Constitutional: Denies fever, denies chills, denies fatigue Head: Denies headache Eyes: Denies changes in vision or blurry vision Ears/Nose/Throat: Denies sore throat, denies rhinorrhea Musculoskeletal: Denies joint pain, denies myalgias Abd: No abd pain, no vomiting, no diarrhea, no nausea Skin/Breast: Denies rash or lesions Cardiovascular: Denies chest pain, denies palpitations, denies LE edema Respiratory: Denies cough, denies SOB, denies wheezing Neurological: Denies numbness, denies tingling, denies weakness PHYSICAL EXAMINATION: General appearance: Well appearing, alert, in no acute distress, well-hydrated, well nourished. Skin: no suspicious rashes or lesions Head: Normocephalic, atraumatic Eyes: Anicteric sclera Nose/Sinuses: Nares normal Oropharynx: Mucosa mois (more content not included)... Normal [facility] HbA1c (Bld)on 10-07-2023 Average glucose Estimated from glycated hemoglobin (Bld) [Mass/Vol] 192 mg/dL [facility] HbA1c (Bld) [Mass fraction] 8.3 % High 4.3 - 5.6 % [facility] Basic metabolic 2000 panelon 08-09-2023 Anion gap [Moles/Vol] 10 mmol/L 9 - 18 mmol/L [facility] Calcium [Mass/Vol] 9.8 mg/dL 8.5 - 10. 2 mg/dL [facility] Chloride [Moles/Vol] 99 mmol/L 97 - 10 5 mmol/L [facility] CO2 [Moles/Vol] 26 mmol/L 22 - 30 mmol/L [facility] Creatinine [Mass/Vol] 0.82 mg/dL 0.58 - 0.96 mg/dL [facility] Estimated Glomerular Filtration Rate 80 mL/min/1.73m >=60 mL/min/1.73m [facility] Glucose [Mass/Vol] 172 mg/dL High 74 - 99 mg/dL [facility] Potassium [Moles/Vol] 4.2 mmol/L 3.7 - 5.1 mmol/L [facility] Sodium [Moles/Vol] 135 mmol/L Low 136 - 144 mmol/L [facility] Urea nitrogen [Mass/Vol] 43 mg/dL High 7 - 21 mg/dL [facility] CBC panel Auto (Bld)on 08-09 Erythrocyte distribution width (RBC) [Ratio] 15.4 % High 11.5 - 15.0 % [facility] Hematocrit (Bld) [Volume fraction] 32.4 % Low 36.0 - 46.0 % [facility] Hemoglobin (Bld) [Mass/Vol] 10.4 g/dL Low 11.5 - 15.5 g/dL [facility] MCH (RBC) [Entitic mass] 27.0 pg 26.0 - 34.0 pg [facility] MCHC (RBC) [Mass/Vol] 32.1 g/dL 30.5 - 36.0 g/dL [facility] MCV (RBC) [Entitic vol] 84.2 fL 80.0 - 100.0 fL [facility] Nucleated RBC (Bld) [#/Vol] <0.01 k/uL [facility] Platelet mean volume (Bld) [Entitic vol] 9.5 fL 9.0 - 12.7 fL [facility] Platelets (Bld) [#/Vol] 320 10*3/uL 150 - 400 k /uL [facility] RBC (Bld) [#/Vol] 3.85 10*6/uL Low 3.90 - 5.2 0 m/uL [facility] WBC (Bld) [#/Vol] 10.78 10*3/uL 3.70 - 11 .00 k/uL [facility] HbA1c (Bld)on 08-09-2023 Average glucose Estimated from glycated hemoglobin (Bld) [Mass/Vol] 214 mg/dL [facility] HbA1c (Bld) [Mass fraction] 9.1 % High 4.3 - 5.6 % [facility] TYPE AND SCREEN,30 DAYon ABO group Nom (Bld) O [facility] Blood group antibody screen Ql Negative [facility] HIstorical Ab Scr Status Negative [facility] Rh Nom (Bld) Positive [facility] [facility] ALBUMIN/CREAT RATIO RND URon 07-28-2023 Albumin DL <= 20 mg/L (U) [Mass/Vol] 327.9 mg/L [facility] Albumin/Creatinine (U) [Mass ratio] 226 mg/g High <30 mg/g [facility] Creatinine (U) [Mass/Vol] 145.3 mg/dL 20.0 - 300.0 mg/dL [facility] Lipid 1996 panelon 3 Cholesterol [Mass/Vol] 176 mg/dL <200 mg/dL [facility] Cholesterol in HDL [Mass/Vol] 59 mg/dL >39 mg/dL [facility] Cholesterol in LDL [Mass/Vol] 103 mg/dL High <100 mg/dL [facility] Cholesterol in LDL/Cholesterol in HDL [Mass ratio] 1.75 {ratio} <2.54 [facility] Cholesterol in VLDL [Mass/Vol] 14 mg/dL <30 mg/dL [facility] Cholesterol non HDL [Mass/Vol] 117 mg/dL <130 mg/dL [facility] Cholesterol.total/Louann sterol in HDL [Mass ratio] 2.98 {ratio} <5.10 [facility] Fasting Time 10 hrs [facility] Triglyceride [Mass/Vol] 72 mg/dL <150 mg/dL C [facility] Basic metabolic 2000 panelon 06-17-2023 Anion gap [Moles/Vol] 8 mmol/L Low 9 - 18 mmol/L [facility] Calcium [Mass/Vol] 10.0 mg/dL 8.5 - 10. 2 mg/dL [facility] Chloride [Moles/Vol] 105 mmol/L 97 - 10 5 mmol/L [facility] CO2 [Moles/Vol] 26 mmol/L 22 - 30 mmol/L [facility] Creatinine [Mass/Vol] 0.79 mg/dL 0.58 - 0.96 mg/dL [facility] Estimated Glomerular Filtration Rate 85 mL/min/1.73m >=60 mL/min/1.73m [facility] Glucose [Mass/Vol] 263 mg/dL High 74 - 99 mg/dL [facility] Potassium [Moles/Vol] 4.5 mmol/L 3.7 - 5.1 mmol/L [facility] Sodium [Moles/Vol] 139 mmol/L 136 - 144 mmol/L [facility] Urea nitrogen [Mass/Vol] 30 mg/dL High 7 - 21 mg/dL [facility] MAGNESIUM BLDon 06-17-2023 Magnesium [Mass/Vol] 1.8 mg/dL 1.7 - 2 .3 mg/dL [facility] PELVIC US WHIon 05-04-2023 [facility] Basic metabolic 2000 panelon 03-10-2023 Anion gap [Moles/Vol] 10 mmol/L 9 - 18 mmol/L [facility] Calcium [Mass/Vol] 10.1 mg/dL 8.5 - 10. 2 mg/dL [facility] Chloride [Moles/Vol] 104 mmol/L 97 - 10 5 mmol/L [facility] CO2 [Moles/Vol] 27 mmol/L 22 - 30 mmol/L [facility] Creatinine [Mass/Vol] 0.92 mg/dL 0.58 - 0.96 mg/dL [facility] Estimated Glomerular Filtration Rate 71 mL/min/1.73m >=60 mL/min/1.73m [facility] Glucose [Mass/Vol] 143 mg/dL High 74 - 99 mg/dL [facility] Potassium [Moles/Vol] 5.3 mmol/L High 3.7 - 5.1 mmol/L [facility] Sodium [Moles/Vol] 141 mmol/L 136 - 144 mmol/L [facility] Urea nitrogen [Mass/Vol] 40 mg/dL High 7 - 21 mg/dL [facility] UA DIP, URINE (POC)on 2022 BILIRUBIN UA (POCT) Negative Negative [facility] CLARITY UA (POCT) Slightly Cloudy Cl [facility] COLOR UA (POCT) Other [facility] GLUCOSE UA (POCT) Negative Negative mg/dL [facility] HEMOGLOBIN/BLOOD UA (POCT) Moderate Abnormal Negative [facility] KETONE UA (POCT) Negative Negative mg/dL [facility] LEUKOCYTES UA (POCT) Negative Negative [facility] NITRITE UA (POCT) Negative Negative [facility] PH UA (POCT) 6.0 4.5 - 8.0 [facility] Protein Ql (U) 30 mg/dL Abnormal Negative mg/dL [facility] SPECIFIC GRAVITY UA (POCT) 1.020 1.005 - 1.030 [facility] UROBILINOGEN UA (POCT) 0.2 E.U./dL Normal E.U./ dL [facility] Urinalysis complete panel (U )on 02-08-2023 Bacteria LM.HPF (Urine sed) [#/Area] Few Abnormal None Seen /HPF [facility] Bilirubin Ql (U) Negative Negative [facility] Clarity (Unsp spec) Clear Clear [facility] Color (U) Yellow Yellow [facility] Epithelial cells LM.HPF (Urine sed) [#/Area] Few [facility] Glucose Test strip (U) [Mass/Vol] Negative Negative [facility] Hemoglobin Ql (U) 2+ Abnormal Negative, Trace [facility] Ketones Ql (U) Negative Negative [facility] Leukocyte esterase Test strip Ql (U) Negative Negative [facility] Nitrite Ql (U) Negative Negative [facility] pH (U) 6.0 [pH] 5.0 - 8.0 [facility] Protein (U) [Mass/Vol] Trace Abnormal Negative Cl [facility] RBC LM.HPF (Urine sed) [#/Area] 3-5 /HPF Abnormal 0-3 /HPF [facility] Specific gravity (U) [Rel density] 1.015 1.005 - 1.030 [facility] Urobilinogen Ql (U) 0.2 EU/dL 0.2-1.0 EU/dL Cl [facility] WBC LM.HPF (Urine sed) [#/Area] 0-5 /HPF 0-5 /HPF [facility] Basic metabolic 2000 panelon 02-05-2023 Anion gap [Moles/Vol] 10 mmol/L 9 - 18 mmol/L [facility] Calcium [Mass/Vol] 9.7 mg/dL 8.5 - 10. 2 mg/dL [facility] Chloride [Moles/Vol] 105 mmol/L 97 - 10 5 mmol/L [facility] CO2 [Moles/Vol] 28 mmol/L 22 - 30 mmol/L [facility] Creatinine [Mass/Vol] 0.94 mg/dL 0.58 - 0.96 mg/dL [facility] Estimated Glomerular Filtration Rate 69 mL/min/1.73m >=60 mL/min/1.73m [facility] Glucose [Mass/Vol] 74 mg/dL 74 - 99 mg/dL [facility] Potassium [Moles/Vol] 4.5 mmol/L 3.7 - 5.1 mmol/L [facility] Sodium [Moles/Vol] 143 mmol/L 136 - 144 mmol/L [facility] Urea nitrogen [Mass/Vol] 24 mg/dL High 7 - 21 mg/dL [facility] CBC W Auto Differential pane l (Bld)on 02-05-2023 Basophils (Bld) [#/Vol] 0.03 10*3/uL <0.11 k/uL [facility] Basophils/100 WBC (Bld) 0.3 % C [facility] Differential cell count method Nom (Bld) Auto [facility] Eosinophils (Bld) [#/Vol] 0.55 10*3/uL High <0.46 k/uL [facility] Eosinophils/100 WBC (Bld) 5.7 % [facility] Erythrocyte distribution width (RBC) [Ratio] 16.0 % High 11.5 - 15.0 % [facility] Hematocrit (Bld) [Volume fraction] 35.5 % Low 36.0 - 46.0 % [facility] Hemoglobin (Bld) [Mass/Vol] 11.2 g/dL Low 11.5 - 15.5 g/dL [facility] Immature granulocytes (Bld) [#/Vol] 0.03 10*3/uL <0.10 k/uL [facility] Immature granulocytes/100 WBC (Bld) 0.3 % [facility] Lymphocytes (Bld) [#/Vol] 1.99 10*3/uL 1.00 - 4.00 k/uL [facility] Lymphocytes/100 WBC (Bld) 20.5 % [facility] MCH (RBC) [Entitic mass] 27.3 pg 26.0 - 34.0 pg [facility] MCHC (RBC) [Mass/Vol] 31.5 g/dL 30.5 - 36.0 g/dL [facility] MCV (RBC) [Entitic vol] 86.4 fL 80.0 - 100.0 fL [facility] Monocytes (Bld) [#/Vol] 0.81 10*3/uL <0.87 k/uL [facility] Monocytes/100 WBC (Bld) 8.4 % C [facility] Neutrophils (Bld) [#/Vol] 6.28 10*3/uL 1.45 - 7.50 k/uL [facility] Neutrophils/100 WBC (Bld) 64.8 % [facility] Nucleated RBC (Bld) [#/Vol] <0.01 k/uL [facility] Nucleated RBC/100 WBC (Bld) [Ratio] 0.0 /100 WBC [facility] Platelet mean volume (Bld) [Entitic vol] 10.2 fL 9.0 - 12.7 fL [facility] Platelets (Bld) [#/Vol] 225 10*3/uL 150 - 400 k /uL [facility] RBC (Bld) [#/Vol] 4.11 10*6/uL 3.90 - 5.2 0 m/uL [facility] WBC (Bld) [#/Vol] 9.69 10*3/uL 3.70 - 11. 00 k/uL [facility] HbA1c (Bld)on 02-05-2023 Average glucose Estimated from glycated hemoglobin (Bld) [Mass/Vol] 171 mg/dL [facility] HbA1c (Bld) [Mass fraction] 7.6 % High 4.3 - 5.6 % [facility] VITAMIN B12 BLOODon 02-06-20 Cobalamin (Vitamin B12) [Mass/Vol] High 232 - 1,245 pg/mL [facility] PREALBUMIN BLDon 12-17-2022 Prealbumin [Mass/Vol] 18 mg/dL 17 - 36 mg/dL [facility] NM CARDIAC PERF STRESS/PHARM on 05-12-2022 [facility] Office Visit (Cardiology)on 04-16-2022 Follow-up visit Diagnoses/Problems Assessed Chest pain (786.50) (R07.9) Heart failure with normal ejection fraction (428.9) (I50.30) Hyperlipidemia (272.4) (E78.5) Type 2 diabetes mellitus (250.00) (E11.9) Orders Chest pain IO EKG Electrocardiogram- 12 Lead; Status:Complete; Done: 16Apr2022 01:20PM Heart failure with normal ejection fraction, Hyperlipidemia Comprehensive Metabolic Panel; Status:Active - Retrospective By Protocol Authorization; Requested for:16Apr2022; Lipid Panel; Status:Active - Retrospective By Protocol Authorization; Requested for:16Apr2022; Hyperlipidemia Renew: Atorvastatin Calcium 40 MG Oral Tablet; TAKE 1 TABLET AT BEDTIME History of Present Illness January 29, 2022 Patient is a 61-year-old female with past medical history significant for obesity, hypertension, diabetes mellitus type 2 with retinopathy who has been here for evaluation done because of having shortness of breath and worsening lower extremity edema. Patient denies having chest pain but reports over the last several weeks she has been more short of breath than before and her lower extremity edema is getting worse. She reports that she had some evaluation done and was found to have some venous insufficiency for which she is wrapping her legs for now. Patient had some records from [facility] that showed negative nuclear stress testing with Lexiscan that was done in 2016. She also had labs done in January 2022 that showed glucose 339, potassium 4.3, creatinine 0.7. Her hemoglobin A1c was 10.3. Her LDL in September 2021 was 102. She reports severe fluctuation of blood glucose is being 50 and above 300 Her EKG today shows sinus rhythm with a rate of 73, incomplete right bundle branch block, LVH based on EKG criteria March 05, 2022 Patient denies having chest pain but reports having some shortness of breath with minimal activity. Her weight is up about 5 pounds since last visit last month. Her echocardiogram that was done in February 2023 showed normal ejection fraction with EF of 55 to 60% with impaired relaxation pattern and moderately dilated left atrium and mildly elevated RVSP. She is a scheduled for Cinema program next week. April 16, 2022 Patient denies having chest pain. Shortness of breath has improved significantly. She has lost about 23 pounds since last visit. Her sugar has not been well controlled and A1c remains to be above 10. Her last LDL in March 2022 was 118 on the Lipitor 20 mg daily. Her EKG today shows sinus rhythm with rate of 73 with evidence for LVH and poor R progression and no significant ST-T changes. Patient is interested to follow-up with a area field manager in [place] as her commute to year is too long for her. Her labs in March 2022 showed potassium 4.9, creatinine 0.95. Active Problems Problems Acute bronchitis (466.0) (J20.9) Chest pain (786.50) (R07.9) Depression (311) (F32.A) Dyspnea (786.09) (R06.00) Foot pain, unspecified laterality Heart failure with normal ejection fraction (428.9) (I50.30) Hyperlipidemia (272.4) (E78.5) Limb pain (729.5) (M79.609) Noncompliance with treatment (V15.81) (Z91.19) Medical record states this PT is non compliant with medical treatment relating to diabetes. Peripheral edema (782.3) (R60.9) Situational anxiety (300.09) (F41.8) Sleep disorder (780.50) (G47.9) Type 2 diabetes mellitus (250.00) (E11.9) Type 2 diabetes mellitus, uncontrolled (250.02) Visit for screening mammogram (V76.12) (Z12.31) Surgical History Problems History of Dilation And Curettage Of Cervical Stump History of Hand Surgery Resolved Date: Postoperative Medical records states this procedure is to correct Dupuytren contracture. History of Tonsillectomy Resolved Date: Postoperative Current Meds Medication NameInstruction Atorvastatin Calcium 20 MG Oral TabletTAKE 1 TABLET DAILY. BD Insulin Syringe Ultrafine 31G X 5/16 1 ML MISCUSE DIRECTED. diazePAM 10 MG Oral TabletTAKE 1 TABLET 60 min before test Enalapril Maleate 10 MG Oral TabletTAKE 1 TABLET DAILY. FLUoxetine HCl - 40 MG Oral CapsuleTAKE 1 CAPSULE DAILY. Furosemide 40 MG Oral TabletTAKE 1 TABLET DAILY. HumuLIN R U-500 KwikPen 500 UNIT/ML Subcutaneous Solution Pen-injectorINJECT 100 UNITS UNDER THE SKIN AT BREAKFAST, 40 UNITS AT LUNCH, AND 80 UNITS AT DINNER. Jardiance 10 MG Oral TabletTAKE 1 TABLET BY MOUTH EVERY DAY Jardiance 25 MG Oral TabletTAKE 1 TABLET BY MOUTH ONCE DAILY IN THE MORNING metFORMIN HCl - 1000 MG Oral TabletTAKE 1 TABLET DAILY WITH FOOD. OneTouch Ultra Blue STRPTEST TWICE DAILY. OneTouch UltraSoft LancetsUSE DIRECTED. Spironolactone 25 MG Oral TabletTAKE 1 TABLET DAILY. Allergies Medication No Known Drug Allergies Recorded By: Eduin Rush; 05/13/2012 10:05:52 AM Family History Mother Family history of Hypertension (V17.49) Father Family history of Cardiac Failure Family history of Hypertension (V17.49) Family History Family history of Acute Myocardial Infarction (V17.3) PT lis (more content not included)... Normal [facility] Pharm D Noteon 04-01-2022 Pharm D Note Reason For Visit A telephone visit (audio only) between the patient (at the originating site) and the provider (at the distant site) was utilized to provide this telehealth service. AG PharmD Diabetes Mellitus Consultation History of Present Illness Time Spent on Encounter: 21 - 30 Minutes Allergies Medication No Known Drug Allergies Recorded By: Eduin Rush; 05/13/2012 10:05:52 AM Current Meds Medication NameInstructionReason FLUoxetine HCl - 40 MG Oral CapsuleTAKE 1 CAPSULE DAILY.Depression Furosemide 40 MG Oral TabletTAKE 1 TABLET DAILY.Dyspnea, Peripheral edema Spironolactone 25 MG Oral TabletTAKE 1 TABLET DAILY.Dyspnea, Peripheral edema Atorvastatin Calcium 20 MG Oral TabletTAKE 1 TABLET DAILY.Hyperlipidemia diazePAM 10 MG Oral TabletTAKE 1 TABLET 60 min before testSituational anxiety Jardiance 10 MG Oral TabletTAKE 1 TABLET BY MOUTH EVERY DAYType 2 diabetes mellitus BD Insulin Syringe Ultrafine 31G X 5/16 1 ML MISCUSE DIRECTED.Type 2 diabetes mellitus, uncontrolled Enalapril Maleate 10 MG Oral TabletTAKE 1 TABLET DAILY.Type 2 diabetes mellitus, uncontrolled OneTouch Ultra Blue STRPTEST TWICE DAILY.Type 2 diabetes mellitus, uncontrolled OneTouch UltraSoft LancetsUSE DIRECTED.Type 2 diabetes mellitus, uncontrolled HumuLIN R U-500 KwikPen 500 UNIT/ML Subcutaneous Solution Pen-injectorINJECT 100 UNITS UNDER THE SKIN AT BREAKFAST, 40 UNITS AT LUNCH, AND 80 UNITS AT DINNER. Jardiance 25 MG Oral TabletTAKE 1 TABLET BY MOUTH ONCE DAILY IN THE MORNING metFORMIN HCl - 1000 MG Oral TabletTAKE 1 TABLET DAILY WITH FOOD. Progress Note [place] [address] [facility]A was referred to the Clinical Pharmacy Team for initiation of new Jardiance 10 mg Referring Provider: Nilsa Hearn MEDICATION INITIATION ASSESSMENT CURRENT PHARMACOTHERAPY - Humulin R U-500 Kwikpen: Inject 100 units under the skin once daily at breakfast, 40 units at lunch, and 80 units at bedtime (Patient reported increase dose via Dr. Cerrato, Endocrinology and confirmed prescription change on 03/23/22) - Jardiance 25 mg: Take one tablet by mouth once daily (Patient reports taking from Dr. Cerrato, Endocrinology and confirmed prescription change on 03/23/22) - Metformin 1000 mg: Take one tablet by mouth once daily (Patient reports non-adherence as she noticed when she takes metformin her blood sugars run near hypoglycemia with Humulin use) HISTORICAL PHARMACOTHERAPY - Basaglar, Lantus - Novolog flexpen RELEVANT LAB RESULTS Renal Function 03/12/2022: SCr 0.95 mg/dL eGFR 68 ml/min/1.732 Liver Function 09/19/2021: AST 21 U/L ALT 15 U/L Lipid Panel 03/12/2022: TC 191 mg/dL HDL 43.5 mg/dL LDL 118 mg/dL TG 146 mg/dL A1c -03/12/2022 10.2% - 09/19/2021 10.3% - 07/12/2012 12.4% Albumin/Creatinine Ratio 03/12/2022: 155.3 mcg/mg (microalbuminuria) Additional Contributory Factors - Class II obesity, type two diabetes mellitus, controlled hyperlipidemia Drug Interactions PATIENT EDUCATION/DISCUSSION: - Counseled patient on MOA, expectations, side effects, duration of therapy, contraindications, administration, and monitoring parameters - Answered all patient questions and concerns - Counseled patient on Jardiance MOA, expectations, side effects, duration of therapy, administration, and monitoring parameters. - Reviewed the benefits of SGLT-2i therapy, such as glycemic control and kidney and CV protection. - Advised patient to practice proper hygiene to reduce risk of UTIs or yeast infections. - Advised patient to maintain adequate fluid intake to remain hydrated while on SGLT2i therapy. - Answered all patient questions and concerns. PLAN 1. START - Jardiance 10 mg: Take one tablet by mouth once daily in the morning (Patient states she received, picked up, and started Jardiance 25 mg once daily from Dr. Cerrato) 2. Prescription sent to [facility] pharmacy for assistance on authorization and copay. Medication will be mailed to patient. 3. Patient endorses that she experienced episodic hypoglycemia as described as dizziness with an unsteady gait and stated she believes her blood glucose at this time was in the 70 mg/dL range. Patient stated that she wanted to stop the metformin because she attributed her hypoglycemia to metformin. I advised the patient that metformin is a standard of care medication with a low risk of hypoglycemia as opposed to her u-500 insulin. 4. Future Recommendations: - Ozempic 0.25 mg/0.5 mg: Inject 0.25 mg under the skin x 4 weeks then 0.5 mg thereafter for improved glycemic control, weight loss, CV event risk reduction and kidney protection. Based on test claims this patient would have no copay ($0). I recommend titrating Ozempic to the highest tolerated dose or t (more content not included)... [facility] Ancillary Visit (Diabetes Ed ucation)on 03-26-2022 Ancillary Visit (Diabetes Education) Impressions DSME Topics Covered During Visit: healthy meal plan. DSME - Topics Covered During Visit Other Comments: Will send KENYETTA: Healthy Eating and Diabetes, and Carb counting emailed: Build a Balanced Meal, DHI Carbohydrate counting Mailed: Patient Education folder. Pt needs updated education on meal planning. Reviewed basics today, pt would like to look at handouts and watch videos and follow up with virtual call, which is scheduled in 2 weeks. Needs to schedule MD FUV in 6 weeks. Will start Jardiance 10 mg with samples provided from PCP Reason For Visit Reason For Visit: Patient is here for Diabetes Education Follow-Up. A telephone visit (audio only) between the patient (at the originating site) and the provider (at the distant site) was utilized to provide this telehealth service. CINEIL follow up for initial diabetes education Counseling/Education Diet Recall: -24 hour recall: watermelon, pizza, applesauce unsweetened. Currently blood glucose 201.Today took er insulin noon U-500 90 units, did not take any at breakfast time due to not eating, was 125 this morning -In what ways do you think you need to improve your eating style? Needs to work on low sodium for her gustavo . DSME - Goals and Recommendations [facility] Diabetes Education Program SMART Behavior Goal Setting Sheet: S - Specific: Exactly what you want to do M - Measurable: Use a calendar or chart to track progress A - Attainable: Take small steps to make bigger changes R - Realistic: Pick something reasonable that you know you can do T - Time Oriented: Choose a time limit - no longer than 6 months Specific - Choose How Long You Will Work on This Goal: I will take my diabetes medicine as directed by my doctor. -Take U-500 insulin with meals. Time Time spent with patient: 45 minutes of which greater than 50 percent was spent counseling and or coordinating care. Signatures Electronically signed by : GABBY Pak RD; Mar 26 2022 4:43PM EST (Author) [facility] HEMOGLOBIN A1C (POC)on 03-23 HbA1c (Bld) [Mass fraction] 10.1 % Abnormal 4.2 - 5.6 % [facility] CINEMA [facility] 03-19-2022 [facility] No report was sent Normal [facility] ALBUMIN, URINE SPOTon 2021 ALBUMIN,URINE 270.2 mg/L Normal Not Established [facility] Comment on above: Performed By: #### L IPID #### [facility] [address] [place] [address] ALBUMIN/CREAT RATIO 155.3 ug/mg sole splitter High 0.0 - 30.0 [facility] Comment on above: Performed By: #### L IPID #### [facility] [address] [place] [address] CREATININE,URINE 174.0 mg/dL Normal 20.0 - 320.0 [facility] Comment on above: Performed By: #### L IPID #### [facility] [address] [place] [address] BASIC METABOLIC PANELon Anion gap [Moles/Vol] 12 mmol/L Normal 10 - 20 [facility] Comment on above: Performed By: #### B MP #### [facility] [address] [place] [address] Calcium [Mass/Vol] 10.0 mg/dL Normal 8.6 - 10.6 [facility] Comment on above: Performed By: #### B MP #### [facility] [address] [place] [address] Chloride [Moles/Vol] 97 mmol/L Low 98 - 107 [facility] Comment on above: Performed By: #### B MP #### [facility] [address] [place] [address] Creatinine [Mass/Vol] 0.95 mg/dL Normal 0.50 - 1.05 [facility] Comment on above: Performed By: #### B MP #### [facility] [address] [place] [address] GFR/1.73 sq M.predicted among non-blacks MDRD (S/P/Bld) [Vol rate/Area] 68 mL/min/{1.73_m2} Normal >90 [facility] Comment on above: Result Comment: CALC ULATIONS OF ESTIMATED GFR ARE PERFORMED USING THE 2020 CKD-EPI STUDY REFIT EQUATION WITHOUT THE RACE VARIABLE FOR THE IDMS-TRACEABLE CREATININE METHODS. https://jasn.asnjournals.org/content/early/ASN.2020 620128 Performed By: #### B MP #### [facility] [address] [place] [address] Glucose [Mass/Vol] 284 mg/dL High 74 - 99 [facility] Comment on above: Performed By: #### B MP #### [facility] [address] [place] [address] HCO3 (Bld) [Moles/Vol] 33 mmol/L High 21 - 32 [facility] Comment on above: Performed By: #### B MP #### [facility] [address] [place] [address] Potassium [Moles/Vol] 4.9 mmol/L Normal 3.5 - 5.3 [facility] Comment on above: Performed By: #### B MP #### [facility] [address] [place] [address] Sodium [Moles/Vol] 137 mmol/L Normal 136 - 145 [facility] Comment on above: Performed By: #### B MP #### [facility] [address] [place] [address] Urea nitrogen [Mass/Vol] 26 mg/dL High 6 - 23 [facility] Comment on above: Performed By: #### B MP #### [facility] [address] [place] [address] HEMOGLOBIN A1Con 03-12-2022 Glucose [Mass/Vol] 246 mg/dL Normal [facility] Comment on above: Performed By: #### L IPID #### [facility] [address] [place] [address] HbA1c (Bld) [Mass fraction] 10.2 % Abnormal [facility] Comment on above: Result Comment: Diag nosis of Diabetes-Adults Non-Diabetic: < or = 5.6% Increased risk for developing diabetes: 5.7-6.4% Diagnostic of diabetes: > or = 6.5% . Monitoring of Diabetes Age (y) Therapeutic Goal (%) Adults: >18 <7.0 Pediatrics: 13-18 <7.5 7-12 <8.0 0- 6 7.5-8.5 [place] [employer]. Diabetes Care 33(S1), Sep 2009. Performed By: #### L IPID #### [facility] [address] [place] [address] LIPID PANEL (CORONARY RISK 2 )on 03-12-2022 Cholesterol [Mass/Vol] 191 mg/dL Normal 0 - 199 [facility] Comment on above: Result Comment: . AGE DESIRABLE BORDERLINE HIGH HIGH 0-19 Y 0 - 169 170 - 199 >/= 200 20-24 Y 0 - 189 190 - 224 >/= 225 >24 Y 0 - 199 200 - 239 >/= 240 All ranges are based on fasting samples. Specific therapeutic targets will vary based on patient-specific cardiac risk. . Pediatric guidelines reference:Pediatrics 2011, 128(S5). Adult guidelines reference: NCEP ATPIII Guidelines, ABIGAIL 2001, 258:2486-97 . Venipuncture immediately after or during the administration of Metamizole may lead to falsely low results. Testing should be performed immediately prior to Metamizole dosing. Performed By: #### L IPID #### [facility] [address] [place] [address] Cholesterol in HDL [Mass/Vol] 43.5 mg/dL Normal [facility] Comment on above: Result Comment: . AGE VERY LOW LOW NORMAL HIGH 0-19 Y < 35 < 40 40-45 ---- 20-24 Y ---- < 40 >45 ---- >24 Y ---- < 40 40-60 >60 . Performed By: #### L IPID #### [facility] [id number] [place] [address] Cholesterol in LDL [Mass/Vol] 118 mg/dL High 0 - 99 [facility] Comment on above: Result Comment: . NEAR BORD AGE DESIRABLE OPTIMAL HIGH HIGH VERY HIGH 0-19 Y 0 - 109 --- 110-129 >/= 130 ---- 20-24 Y 0 - 119 --- 120-159 >/= 160 ---- >24 Y 0 - 99 100-129 130-159 160-189 >/=190 . Performed By: #### L IPID #### [facility] [address] [place] [address] Cholesterol in VLDL [Mass/Vol] 29 mg/dL Normal 0 - 40 [facility] Comment on above: Performed By: #### L IPID #### [facility] [address] [place] [address] Cholesterol.total/Louann sterol in HDL [Mass ratio] 4.4 {ratio} Normal [facility] Comment on above: Result Comment: REF VALUES DESIRABLE < 3.4 HIGH RISK > 5.0 Performed By: #### L IPID #### [facility] [address] [place] [address] Triglyceride [Mass/Vol] 146 mg/dL Normal 0 - 149 [facility] Comment on above: Result Comment: . AGE DESIRABLE BORDERLINE HIGH HIGH VERY HIGH 0 D-90 D 19 - 174 ---- ---- ---- 91 D- 9 Y 0 - 74 75 - 99 >/= 100 ---- 10-19 Y 0 - 89 90 - 129 >/= 130 ---- 20-24 Y 0 - 114 115 - 149 >/= 150 ---- >24 Y 0 - 149 150 - 199 200- 499 >/= 500 . Venipuncture immediately after or during the administration of Metamizole may lead to falsely low results. Testing should be performed immediately prior to Metamizole dosing. Performed By: #### L IPID #### [facility] [address] [place] [address] Laboratory - Chemistry and C hemistry - challengeon 03-12-2022 Anion gap [Moles/Vol] 12 mmol/L 10 - 20 [facility] Work Phone: Calcium [Mass/Vol] 10.0 mg/dL 8.6 - 10.6 [facility] Work Phone: Chloride [Moles/Vol] 97 mmol/L below low threshold 98 - 107 [facility] Work Phone: CO2 [Moles/Vol] 33 mmol/L above high threshold 21 - 32 [facility] Work Phone: Creatinine [Mass/Vol] 0.95 mg/dL See Below [facility] Work Phone: Comment on above: Reference Range: 0.5 0 - 1.05 Glucose [Mass/Vol] 284 mg/dL above high threshold 74 - 99 [facility] Work Phone: Potassium [Moles/Vol] 4.9 mmol/L 3.5 - 5.3 [facility] Work Phone: Sodium [Moles/Vol] 137 mmol/L 136 - 145 [facility] Work Phone: Urea nitrogen [Mass/Vol] 26 mg/dL above high threshold 6 - 23 [facility] Work Phone: MAGNESIUMon 03-12-2022 Magnesium [Mass/Vol] 1.68 mg/dL Normal 1.60 - 2.40 [facility] Comment on above: Performed By: #### M G #### [facility] [address] [place] [address] Magnesium, Serumon Magnesium [Mass/Vol] 1.68 mg/dL See Below [facility] Work Phone: Comment on above: Reference Range: 1.6 0 - 2.40 No Panel Informationon 03-12 68 {mL/min/1.73m2} >90 [facility] Work Phone: Comment on above: CALCULATIONS OF ANUJ MATED GFR ARE PERFORMED USING THE 2020 CKD-EPI STUDY REFIT EQUATION WITHOUT THE RACE VARIABLE FOR THE IDMS-TRACEABLE CREATININE METHODS.https://jasn.asnjournals.org/content/early/ ASN.6896046376 Office Visit (Cardiology)on 03-05-2022 Follow-up visit Diagnoses/Problems Assessed Dyspnea (786.09) (R06.00) Hyperlipidemia (272.4) (E78.5) Type 2 diabetes mellitus (250.00) (E11.9) Heart failure with normal ejection fraction (428.9) (I50.30) Orders Dyspnea Basic Metabolic Panel; Status:Active - Retrospective By Protocol Authorization; Requested for:[id number]; Magnesium, Serum; Status:Active - Retrospective By Protocol Authorization; Requested for:[id number]; Dyspnea, Peripheral edema Renew: Furosemide 40 MG Oral Tablet; TAKE 1 TABLET DAILY Renew: Spironolactone 25 MG Oral Tablet; TAKE 1 TABLET DAILY History of Present Illness January 29, 2022 Patient is a 61-year-old female with past medical history significant for obesity, hypertension, diabetes mellitus type 2 with retinopathy who has been here for evaluation done because of having shortness of breath and worsening lower extremity edema. Patient denies having chest pain but reports over the last several weeks she has been more short of breath than before and her lower extremity edema is getting worse. She reports that she had some evaluation done and was found to have some venous insufficiency for which she is wrapping her legs for now. Patient had some records from [facility] that showed negative nuclear stress testing with Lexiscan that was done in 2017. She also had labs done in January 2022 that showed glucose 339, potassium 4.3, creatinine 0.7. Her hemoglobin A1c was 10.3. Her LDL in September 2021 was 102. She reports severe fluctuation of blood glucose is being 50 and above 300 Her EKG today shows sinus rhythm with a rate of 73, incomplete right bundle branch block, LVH based on EKG criteria March 05, 2022 Patient denies having chest pain but reports having some shortness of breath with minimal activity. Her weight is up about 5 pounds since last visit last month. Her echocardiogram that was done in February 2023 showed normal ejection fraction with EF of 55 to 60% with impaired relaxation pattern and moderately dilated left atrium and mildly elevated RVSP. She is a scheduled for Cinema program next week. Active Problems Problems Acute bronchitis (466.0) (J20.9) Chest pain (786.50) (R07.9) Depression (311) (F32.A) Dyspnea (786.09) (R06.00) Foot pain, unspecified laterality Hyperlipidemia (272.4) (E78.5) Limb pain (729.5) (M79.609) Peripheral edema (782.3) (R60.9) Situational anxiety (300.09) (F41.8) Sleep disorder (780.50) (G47.9) Type 2 diabetes mellitus, uncontrolled (250.02) Visit for screening mammogram (V76.12) (Z12.31) Surgical History Problems History of Dilation And Curettage Of Cervical Stump History of Hand Surgery Resolved Date: Postoperative Medical records states this procedure is to correct Dupuytren contracture. History of Tonsillectomy Resolved Date: Postoperative Current Meds Medication NameInstruction Atorvastatin Calcium 20 MG Oral TabletTAKE 1 TABLET DAILY. BD Insulin Syringe Ultrafine 31G X 5/16 1 ML MISCUSE DIRECTED. diazePAM 10 MG Oral TabletTAKE 1 TABLET 60 min before test Enalapril Maleate 10 MG Oral TabletTAKE 1 TABLET DAILY. FLUoxetine HCl - 40 MG Oral CapsuleTAKE 1 CAPSULE DAILY. Furosemide 20 MG Oral TabletTAKE 1 TABLET BY MOUTH EVERY DAY DIRECTED HumuLIN R U-500 KwikPen 500 UNIT/ML Subcutaneous Solution Pen-injectorINJECT 90 UNITS SUBCUTANEOUSLY AT BREAKFAST TIME, 40 UNTIS AT LUNCH, AND 90 UNITS AT SUPPER metFORMIN HCl - 1000 MG Oral TabletTAKE 1 TABLET DAILY WITH FOOD. OneTouch Ultra Blue STRPTEST TWICE DAILY. OneTouch UltraSoft LancetsUSE DIRECTED. Spironolactone 25 MG Oral TabletTAKE 1/2 TABLET BY MOUTH EVERY DAY Allergies Medication No Known Drug Allergies Recorded By: Eduin Rush; 05/13/2012 10:05:52 AM Family History Mother Family history of Hypertension (V17.49) Father Family history of Cardiac Failure Family history of Hypertension (V17.49) Family History Family history of Acute Myocardial Infarction (V17.3) PT listed history for Aunt or Uncle. Family history of Cancer PT listed history for Sibling. 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 Obese Eyes: no erythema, swelling or discharge from the eye . Neck: Supple, NL ROM. Pulmonary: no increased work of breathing or signs of respiratory distress and lungs clear to auscultation. Cardiovascular: carotid pulses 2+ bilaterally with no bruit , JVP was normal, no thrills , regular rhythm, normal S1 and S2, no murmurs , pedal pulses 2+ bilaterally and 2+ bilateral p (more content not included)... Normal DueDil Echocardiogramon 02-19-2022 Echocardiography [facility] , [address] [place] [address], [address], [place] [address] and TRANSTHORACIC ECHOCARDIOGRAM REPORT Patient Name: SHADE BRAMBILA Reading Physician: [id number] Nate Donnelly MD Study Date: 02/19/2022 Referring Physician: KIEL GARIBAY MRN/PID: [id number] PCP: Accession/Order#: [id number] Department Location: [facility] Date of : 1960 Fellow: Gender: F Nurse: Admit Date: Experience Specialist: Alfredo French [facility] Admission Status: Outpatient Additional Staff: Height: 172.72 cm CC Report to: Weight: 110.68 kg Study Type: Echocardiogram BSA: 2.22 m2 Blood Pressure: 132 /80 mmHg Diagnosis/ICD: R06.00-Dyspnea, unspecified Indication: Dyspnea Procedure/CPT: Echo Complete w Full [id number] Patient History: Diabetes: Yes BMI: Obese >30 Pertinent History: Dyspnea and Chest Pain. Study Detail: The following Echo studies were performed: 2D, M-Mode, Doppler and color flow. Technically challenging study due to body habitus. PHYSICIAN INTERPRETATION: Left Ventricle: The left ventricular systolic function is normal, with an estimated ejection fraction of 55-60%. There are no regional wall motion abnormalities. The left ventricular cavity size is normal. There is mild concentric left ventricular hypertrophy. Spectral Doppler shows a pseudonormal pattern of left ventricular diastolic filling. Left Atrium: The left atrium is moderately dilated. Right Ventricle: The right ventricle is normal in size. There is normal right ventricular global systolic function. Right Atrium: The right atrium is mildly dilated. Aortic Valve: The aortic valve is trileaflet. There is no evidence of aortic valve regurgitation. The peak instantaneous gradient of the aortic valve is 8.9 mmHg. Mitral Valve: The mitral valve is normal in structure. There is trace mitral valve regurgitation. Tricuspid Valve: The tricuspid valve is structurally normal. There is trace to mild tricuspid regurgitation. The Doppler estimated RVSP is mildly elevated at 33.6 mmHg. Pulmonic Valve: The pulmonic valve is not well visualized. There is no indication of pulmonic valve regurgitation. Pericardium: There is no pericardial effusion noted. Aorta: The aortic root is normal. CONCLUSIONS: 1. The left ventricular systolic function is normal with a 55-60% estimated ejection fraction. 2. Spectral Doppler shows a pseudonormal pattern of left ventricular diastolic filling. 3. The left atrium is moderately dilated. 4. Mildly elevated RVSP. QUANTITATIVE DATA SUMMARY: 2D MEASUREMENTS: Normal Ranges: IVSd: 1.38 cm (0.6-1.1cm) LVPWd: 1.45 cm (0.6-1.1cm) LVIDd: 4.10 cm (3.9-5.9cm) LVIDs: 3.31 cm LV Mass Index: 98.8 g/m2 LV % FS 19.3 % LA VOLUME: Normal Ranges: LA Vol A4C: 62.5 ml (22+/-6mL/m2) LA Vol A2C: 45.1 ml LA Vol BP: 53.6 ml LA Vol Index A4C: 28.1 ml/m2 LA Vol Index A2C: 20.3 ml/m2 LA Vol Index BP: 24.1 ml/m2 LA Area A4C: 21.0 cm2 LA Area A2C: 18.0 cm2 LA Major Bernice A4C: 6.0 cm LA Major Bernice A2C: 6.1 cm LA Volume Index: 23.0 ml/m2 LA Vol A4C: 57.0 ml LA Vol A2C: 40.8 ml RA VOLUME BY A/L METHOD: Normal Ranges: RA Vol A4C: 40.3 ml (8.3-19.5ml) RA Vol Index A4C: 18.1 ml/m2 RA Area A4C: 16.0 cm2 RA Major Bernice A4C: 5.4 cm M-MODE MEASUREMENTS: Normal Ranges: Ao Root: 3.40 cm (2.0-3.7cm) LAs: 5.03 cm (2.7-4.0cm) AORTA MEASUREMENTS: Normal Ranges: Asc Ao, d: 3.00 cm (2.1-3.4cm) Ao Arch: 3.20 cm (2.0-3.6cm) LV SYSTOLIC FUNCTION BY 2D PLANIMETRY (MOD): Normal Ranges: EF-A4C View: 53.9 % (>55%) EF-A2C View: 54.7 % EF-Biplane: 53.7 % LV DIASTOLIC FUNCTION: Normal Ranges: MV Peak E: 1.13 m/s (0.7-1.2 m/s) MV Peak A: 0.84 m/s (0.42-0.7 m/s) E/A Ratio: 1.34 (1.0-2.2) MV lateral e' 0.06 m/s MV medial e' 0.07 m/s MV A Dur: 154.14 msec PulmV Sys Louis: 71.62 cm/s PulmV Velasco Louis: 59.71 cm/s PulmV S/D Louis: 1.20 PulmV A Revs Louis: 30.37 cm/s PulmV A Revs Dur: 131.30 msec MITRAL VALVE: Normal Ranges: MV DT: 164 msec (150-240msec) AORTIC VALVE: Normal Ranges: AoV Vmax: 1.49 m/s (<1.7m/s) AoV Peak P.9 mmHg (<20mmHg) LVOT Max Louis: 1.06 m/s (<1.1m/s) LVOT VTI: 24.23 cm LVOT Diameter: 2.04 cm (1.8-2.4cm) AoV Area,Vmax: 2.32 cm2 (2.5-4.5cm2) RIGHT VENTRICLE: RV 1 3.1 cm RV 2 1.4 cm RV 3 6.3 cm TAPSE: 20.2 mm RV s' 0.14 m/s TRICUSPID VALVE/RVSP: Normal Ranges: Peak TR Velocity: 2.81 m/s RV Syst Pressure: 34.6 mmHg (< 30mmHg) IVC Diam: 1.80 cm PULMONIC VALVE: Normal Ranges: PV Accel Time: 72 msec (>120ms) PV Max Louis: 0.8 m/s (0.6-0.9m/s) PV Max P.9 mmHg Pulmonary Veins: PulmV A Revs Dur: 131.30 msec PulmV A Revs Louis: 30.37 cm/s PulmV Velasco Louis: 59.71 cm/s PulmV S/D Louis: 1.20 PulmV Sys Louis: 71.62 cm/s [id number] Nate Donnelly MD Electronically signed on 02/19/2022 at 6:21:06 PM Final Normal [facility] BASIC METABOLIC PANELon 06-0 Anion gap [Moles/Vol] 13 mmol/L Normal 10 - 20 [facility] Comment on above: Performed By: #### B MP #### [facility] [address] [place] [address] Calcium [Mass/Vol] 9.9 mg/dL Normal 8.6 - 10.6 [facility] Comment on above: Performed By: #### B MP #### [facility] [address] [place] [address] Chloride [Moles/Vol] 101 mmol/L Normal 98 - 107 [facility] Comment on above: Performed By: #### B MP #### [facility] [address] [place] [address] Creatinine [Mass/Vol] 0.86 mg/dL Normal 0.50 - 1.05 [facility] Comment on above: Performed By: #### B MP #### [facility] [address] [place] [address] GFR/1.73 sq M.predicted among non-blacks MDRD (S/P/Bld) [Vol rate/Area] 77 mL/min/{1.73_m2} Normal >90 [facility] Comment on above: Result Comment: CALC ULATIONS OF ESTIMATED GFR ARE PERFORMED USING THE 2020 CKD-EPI STUDY REFIT EQUATION WITHOUT THE RACE VARIABLE FOR THE IDMS-TRACEABLE CREATININE METHODS. https://jasn.asnjournals.org/content//ASN.2020 126880 Performed By: #### B MP #### [facility] [address] [place] [address] Glucose [Mass/Vol] 166 mg/dL High 74 - 99 [facility] Comment on above: Performed By: #### B MP #### [facility] [address] [place] [address] HCO3 (Bld) [Moles/Vol] 29 mmol/L Normal 21 - 32 [facility] Comment on above: Performed By: #### B MP #### [facility] [address] [place] [address] Potassium [Moles/Vol] 4.3 mmol/L Normal 3.5 - 5.3 [facility] Comment on above: Performed By: #### B MP #### [facility] [address] [place] [address] Sodium [Moles/Vol] 139 mmol/L Normal 136 - 145 [facility] Comment on above: Performed By: #### B MP #### [facility] [address] [place] [address] Urea nitrogen [Mass/Vol] 20 mg/dL Normal 6 - 23 [facility] Comment on above: Performed By: #### B MP #### [facility] [address] [place] [address] MAGNESIUMon 02-12-2022 Magnesium [Mass/Vol] 1.83 mg/dL Normal 1.60 - 2.40 [facility] Comment on above: Performed By: #### M G #### [facility] [address] [place] [address] Laboratory - Chemistry and C hemistry - challengeon 02-11-2022 Anion gap [Moles/Vol] 13 mmol/L 10 - 20 [facility] Work Phone: Calcium [Mass/Vol] 9.9 mg/dL 8.6 - 10.6 [facility] Work Phone: Chloride [Moles/Vol] 101 mmol/L 98 - 107 [facility] Work Phone: CO2 [Moles/Vol] 29 mmol/L 21 - 32 [facility] Work Phone: [phone] Creatinine [Mass/Vol] 0.86 mg/dL See Below [facility] Work Phone: [phone] Comment on above: Reference Range: 0.5 0 - 1.05 Glucose [Mass/Vol] 166 mg/dL above high threshold 74 - 99 [facility] Work Phone: Potassium [Moles/Vol] 4.3 mmol/L 3.5 - 5.3 [facility] Work Phone: Sodium [Moles/Vol] 139 mmol/L 136 - 145 [facility] Work Phone: Urea nitrogen [Mass/Vol] 20 mg/dL 6 - 23 [facility] Work Phone: Magnesium, Serumon Magnesium [Mass/Vol] 1.83 mg/dL See Below [facility] Work Phone: Comment on above: Reference Range: 1.6 0 - 2.40 No Panel Informationon 02-11 77 {mL/min/1.73m2} >90 [facility] Work Phone: Comment on above: CALCULATIONS OF ANUJ MATED GFR ARE PERFORMED USING THE 2020 CKD-EPI STUDY REFIT EQUATION WITHOUT THE RACE VARIABLE FOR THE IDMS-TRACEABLE CREATININE METHODS.https://jasn.asnjournals.org/content/early// ASN.0405826587 Office Visit (Cardiology)on 01-29-2022 Follow-up visit Diagnoses/Problems Assessed Depression (311) (F32.A) Dyspnea (786.09) (R06.00) Patient Instructions There are several ways to reduce your risk for heart disease and stroke through lifestyle measures. These include: - changes to your diet to reduce salt, increase consumption of fruits and vegetables, choose whole grains such as whole-wheat, choose low fat dairy products and avoid saturated and transfats, reduce sugar intake and avoid snacks and sweets, and choose lean meats over high cholesterol fatty meat. - increase physical activity such as brisk walking, jogging, swimming, or bicycling for at least 150 minutes/week. This can be divided up over 30-minute periods 5 times per week. - try to get 8 hours of sleep per night and use your CPAP or BiPAP if you have been prescribed one. History of Present Illness Patient is a 61-year-old female with past medical history significant for obesity, hypertension, diabetes mellitus type 2 with retinopathy who has been here for evaluation done because of having shortness of breath and worsening lower extremity edema. Patient denies having chest pain but reports over the last several weeks she has been more short of breath than before and her lower extremity edema is getting worse. She reports that she had some evaluation done and was found to have some venous insufficiency for which she is wrapping her legs for now. Patient had some records from [facility] that showed negative nuclear stress testing with Lexiscan that was done in 2017. She also had labs done in January 2022 that showed glucose 339, potassium 4.3, creatinine 0.7. Her hemoglobin A1c was 10.3. Her LDL in September 2021 was 102. She reports severe fluctuation of blood glucose is being 50 and above 300 Her EKG today shows sinus rhythm with a rate of 73, incomplete right bundle branch block, LVH based on EKG criteria *Active Problems Problems Acute bronchitis (466.0) (J20.9) Chest pain (786.50) (R07.9) Depression (311) (F32.A) Dyspnea (786.09) (R06.00) Foot pain, unspecified laterality Hyperlipidemia (272.4) (E78.5) Limb pain (729.5) (M79.609) Peripheral edema (782.3) (R60.9) Situational anxiety (300.09) (F41.8) Sleep disorder (780.50) (G47.9) Type 2 diabetes mellitus, uncontrolled (250.02) Visit for screening mammogram (V76.12) (Z12.31) Surgical History Problems History of Dilation And Curettage Of Cervical Stump History of Hand Surgery Resolved Date: Postoperative Medical records states this procedure is to correct Dupuytren contracture. History of Tonsillectomy Resolved Date: Postoperative Past Medical History Problems History of bronchitis (V12.69) (Z87.09) Resolved Date: Unknown History of depression (V11.8) (Z86.59) Resolved Date: Unknown History of hyperlipidemia (V1.) (Z86.39) Resolved Date: Unknown History of type 2 diabetes mellitus (V12.) (Z86.39) Resolved Date: Unknown Noncompliance with treatment (V15.81) (Z91.19) Resolved Date: Unknown Medical record states this PT is non compliant with medical treatment relating to diabetes. Current Meds Medication NameInstruction Advair Diskus 250-50 MCG/DOSE AEPBINHALE 1 PUFF EVERY 12 HOURS. Atorvastatin Calcium 20 MG Oral TabletTAKE 1 TABLET DAILY. BD Insulin Syringe Ultrafine 31G X 5/16 1 ML MISCUSE DIRECTED. diazePAM 10 MG Oral TabletTAKE 1 TABLET 60 min before MRI and then repeat in 1 hour if no effect Enalapril Maleate 10 MG Oral TabletTAKE 1 TABLET DAILY. FLUoxetine HCl - 40 MG Oral CapsuleTAKE 1 CAPSULE DAILY. HumuLIN R U-500 KwikPen 500 UNIT/ML Subcutaneous Solution Pen-injectorINJECT 90 UNITS SUBCUTANEOUSLY AT BREAKFAST TIME, 40 UNTIS AT LUNCH, AND 90 UNITS AT SUPPER HYDROcodone-Acetaminop hen 5-325 MG Oral TabletTAKE 1 TABLET EVERY 4 TO 6 HOURS NEEDED FOR PAIN. metFORMIN HCl - 1000 MG Oral Tablet OneTouch Ultra Blue STRPTEST TWICE DAILY. OneTouch UltraSoft LancetsUSE DIRECTED. Allergies Medication No Known Drug Allergies Recorded By: Eduin Rush; 05/13/2012 10:05:52 AM Family History Mother Family history of Hypertension (V17.49) Father Family history of Cardiac Failure Family history of Hypertension (V17.49) Family History Family history of Acute Myocardial Infarction (V17.3) PT listed history for Aunt or Uncle. Family history of Cancer PT listed history for Sibling. 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 Obese Eyes: no erythema, swelling or discharge from the e (more content not included)... Normal [facility] COMPREHENSIVE PANELon 2021 Albumin [Mass/Vol] 3.5 g/dL Normal 3.4 - 5.0 [facility] Comment on above: Performed By: #### C MP #### [facility] [address] [place] [address] ALP [Catalytic activity/Vol] 137 U/L High 33 - 136 [facility] Comment on above: Performed By: #### C MP #### [facility] [address] [place] [address] ALT [Catalytic activity/Vol] 13 U/L Normal 7 - 45 [facility] Comment on above: Result Comment: Sharlene ents treated with Sulfasalazine may generate falsely decreased results for ALT. Performed By: #### C MP #### [facility] [address] [place] [address] Anion gap [Moles/Vol] 13 mmol/L Normal 10 - 20 [facility] Comment on above: Performed By: #### C MP #### [facility] [address] [place] [address] AST [Catalytic activity/Vol] 16 U/L Normal 9 - 39 [facility] Comment on above: Performed By: #### C MP #### [facility] [address] [place] [address] Bilirubin [Mass/Vol] 0.4 mg/dL Normal 0.0 - 1.2 [facility] Comment on above: Performed By: #### C MP #### [facility] [address] [place] [address] Calcium [Mass/Vol] 8.7 mg/dL Normal 8.6 - 10.6 [facility] Comment on above: Performed By: #### C MP #### [facility] [address] [place] [address] Chloride [Moles/Vol] 100 mmol/L Normal 98 - 107 [facility] Comment on above: Performed By: #### C MP #### [facility] [address] [place] [address] Creatinine [Mass/Vol] 0.71 mg/dL Normal 0.50 - 1.05 [facility] Comment on above: Performed By: #### C MP #### [facility] [address] [place] [address] eGFR FEMALE >90 Normal >90 [facility] Comment on above: Result Comment: CALC ULATIONS OF ESTIMATED GFR ARE PERFORMED USING THE 2020 CKD-EPI STUDY REFIT EQUATION WITHOUT THE RACE VARIABLE FOR THE IDMS-TRACEABLE CREATININE METHODS. https://jasn.asnjournals.org/content/early//ASN.2020 569282 Performed By: #### C MP #### [facility] [address] [place] [address] Glucose [Mass/Vol] 339 mg/dL High 74 - 99 [facility] Comment on above: Performed By: #### C MP #### [facility] [address] [place] [address] HCO3 (Bld) [Moles/Vol] 26 mmol/L Normal 21 - 32 [facility] Comment on above: Performed By: #### C MP #### [facility] [address] [place] [address] Potassium [Moles/Vol] 4.3 mmol/L Normal 3.5 - 5.3 [facility] Comment on above: Performed By: #### C MP #### [facility] [address] [place] [address] Protein [Mass/Vol] 6.4 g/dL Normal 6.4 - 8.2 [facility] Comment on above: Performed By: #### C MP #### [facility] [address] [place] [address] Sodium [Moles/Vol] 135 mmol/L Low 136 - 145 [facility] Comment on above: Performed By: #### C MP #### [facility] [address] [place] [address] Urea nitrogen [Mass/Vol] 14 mg/dL Normal 6 - 23 [facility] Comment on above: Performed By: #### C MP #### [facility] [address] [place] [address] SARS-CoV-2 NUCLEOCAPSID IGG ANTIBODYon 01-27-2022 SARS-CoV-2 (COVID-19) IgG IA.rapid Ql (S/P/Bld) Negative Normal Negative [facility] Comment on above: Result Comment: . No IgG antibodies to SARS-CoV-2 nucleocapsid proteins detected. Negative results do not rule out SARS-CoV-2 (COVID-19) infection as negative results can be seen during the early stage of infection, in immunosuppressed patients, or in some individuals who had an asymptomatic or mild illness. Follow-up testing with a molecular diagnostic test should be considered to rule out acute infection in symptomatic individuals. . Please note: This test can NOT be used for evaluating vaccine response. It does not detect antibodies against the vaccine antigen spike proteins. . This test is for in vitro diagnostic use under the FDA Emergency Use Authorization (EUA) for US laboratories certified under CLIA to perform moderate or high complexity tests. This test has not been FDA cleared or approved. This test should not be used for screening of donated blood. Performed By: #### C OVGG #### [facility] [address] [place], [place] [id number] Laboratory - Chemistry and C hemistry - challengeon 01-26-2022 Albumin BCP dye [Mass/Vol] 3.5 g/dL 3.4 - 5.0 [facility] Work Phone: ALP [Catalytic activity/Vol] 137 U/L above high threshold 33 - 136 [facility] Work Phone: ALT With P-5'-P [Catalytic activity/Vol] 13 U/L 7 - 45 [facility] Work Phone: Comment on above: Patients treated wit h Sulfasalazine may generate falsely decreased results for ALT. Anion gap [Moles/Vol] 13 mmol/L 10 - 20 [facility] Work Phone: AST With P-5'-P [Catalytic activity/Vol] 16 U/L 9 - 39 [facility] Work Phone: Bilirubin [Mass/Vol] 0.4 mg/dL 0.0 - 1.2 [facility] Work Phone: Calcium [Mass/Vol] 8.7 mg/dL 8.6 - 10.6 [facility] Work Phone: Chloride [Moles/Vol] 100 mmol/L 98 - 107 [facility] Work Phone: CO2 [Moles/Vol] 26 mmol/L 21 - 32 [facility] Work Phone: Creatinine [Mass/Vol] 0.71 mg/dL See Below [facility] Work Phone: Comment on above: Reference Range: 0.5 0 - 1.05 Glucose [Mass/Vol] 339 mg/dL above high threshold 74 - 99 [facility] Work Phone: Potassium [Moles/Vol] 4.3 mmol/L 3.5 - 5.3 [facility] Work Phone: Protein [Mass/Vol] 6.4 g/dL 6.4 - 8.2 [facility] Work Phone: Sodium [Moles/Vol] 135 mmol/L below low threshold 136 - 145 [facility] Work Phone: Urea nitrogen [Mass/Vol] 14 mg/dL 6 - 23 [facility] Work Phone: No Panel Informationon 01-26 >90 >90 [facility] Work Phone: Comment on above: CALCULATIONS OF ANUJ MATED GFR ARE PERFORMED USING THE 2020 CKD-EPI STUDY REFIT EQUATION WITHOUT THE RACE VARIABLE FOR THE IDMS-TRACEABLE CREATININE METHODS.https://jasn.asnjournals.org/content// ASN.1415610765 Office Visit (Family Medicin e)on 01-26-2022 Follow-up visit Diagnoses/Problems Dyspnea (786.09) (R06.00) Peripheral edema (782.3) (R60.9) * Orders Depression Renew: FLUoxetine HCl - 40 MG Oral Capsule; TAKE 1 CAPSULE DAILY Dyspnea, Peripheral edema Cardiology - General Referral Evaluation and Treatment Evaluate AND Treat Status: Active Requested for: 24Feb2022 AMA Intake updated by CMS ACCOUNT (INTRANET) on 2022-01-27 22:03 New Recipient: Patino Edi Robert Appointment Date: 2022-02-24 13:00 Health Maintenance SARS-CoV-2 NUCLEOCAPSID IGG ANTIBODY; Status:Resulted - Requires Verification; Done: 26Jan2022 04:54PM Hyperlipidemia Renew: Atorvastatin Calcium 20 MG Oral Tablet; TAKE 1 TABLET DAILY Peripheral edema Comprehensive Metabolic Panel; Status:Resulted - Requires Verification; Done: 26Jan2022 04:54PM Type 2 diabetes mellitus, uncontrolled Renew: Enalapril Maleate 10 MG Oral Tablet; TAKE 1 TABLET DAILY Visit for screening mammogram Mamm - Screening Mammogram w/ Tomosynthesis; Status:Hold For - Scheduling; Requested for:26Jan2022; Radiologist to Determine Optimal Study : Y What are the patient's signs and symptoms ? : Annual Screening Mammogram Peripheral edema (782.3) (R60.9) Dyspnea (786.09) (R06.00) Patient Discussion/Summary By signing my name below, I, Kirill Andujar, attest that this documentation has been prepared under the direction and in the presence of Dr. Alvina Sullivan MD. All medical record entries made by the Scribe were at my direction and personally dictated by me. I have reviewed the chart and agree that the record accurately reflects my personal performance of the history, physical exam, discussion and plan. History of Present Illness EP. Here for swelling in lower extremities and shortness of breath when walking. Shade is a 61 year old female presenting today for LE swelling and SOB with exertion. -h/o non-compliant diabetic - I do not see patient regularly and she follows up with her aircraft hydraulic equipment mechanic very irregularly -developed sores on her legs - been going to [facility]; vein tests were ordered as well as compression stockings; has been getting her legs wrapped since the first time she has seen Madi, tomorrow will be the third time. [facility] questioned if she should be on a water pill which prompted today's visit -lays in a recliner at home to sleep -poor sleep: wakes from her sleep every 2 hours -saw Dr. Cerrato in September 2021- Eddie was d/c and regular insulin prescribed; her sugars have been fluctuating lately and she has been trying to get them under control. -pt requesting COVID antibody test- I explained how a positive result does not mean she is protected nor does a negative result mean she did not have COVID * Active Problems Acute bronchitis (466.0) (J20.9) Chest pain (786.50) (R07.9) Depression (311) (F32.A) Foot pain, unspecified laterality Hyperlipidemia (272.4) (E78.5) Limb pain (729.5) (M79.609) Situational anxiety (300.09) (F41.8) Sleep disorder (780.50) (G47.9) Type 2 diabetes mellitus, uncontrolled (250.02) Peripheral edema (782.3) (R60.9) Past Medical History History of bronchitis (V12.69) (Z87.09) Resolved Date: Unknown History of depression (V11.8) (Z86.59) Resolved Date: Unknown History of hyperlipidemia (V12.29) (Z86.39) Resolved Date: Unknown History of type 2 diabetes mellitus (V12.29) (Z86.39) Resolved Date: Unknown Noncompliance with treatment (V15.81) (Z91.19) Resolved Date: Unknown Medical record states this PT is non compliant with medical treatment relating to diabetes. Surgical History History of Dilation And Curettage Of Cervical Stump History of Hand Surgery Resolved Date: Postoperative Medical records states this procedure is to correct Dupuytren contracture. History of Tonsillectomy Resolved Date: Postoperative Family History Family history of Hypertension (V17.49) Family history of Cardiac Failure Family history of Hypertension (V17.49) Family history of Acute Myocardial Infarction (V17.3) PT listed history for Aunt or Uncle. Family history of Cancer PT listed history for Sibling. 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 - [place] Allergies No Known Drug Allergies Recorded By: Eduin Rush; 05/13/2012 10:05:52 AM Current Meds Medication NameInstructionReason FLUoxetine HCl - 40 MG Oral CapsuleTAKE 1 CAPSULE DAILY.Depression Atorvastatin Calcium 20 MG Oral TabletTAKE 1 TABLET DAILY.Hyperlipidemia BD Insulin Syringe Ultrafine 31G X 5/16 1 ML MISCUSE DIRECTED.Type 2 diabetes mellitus, uncontrolled Enalapril Maleate 10 MG Oral TabletTAKE 1 TABLET DAILY.Type 2 diabetes mellitus, uncontrolled OneTouch Ultra Blue STRPTEST TWICE DAILY.Type 2 diabetes mellitus, uncontrolled OneTouch UltraSoft LancetsUSE DIRECTED.Type 2 diabetes mellitus, uncontrolled HumuLIN (more content not included)... Normal [facility] SARS-CoV-2 NUCLEOCAPSID IGG ANTIBODYon 01-26-2022 Lab Specimen Source Normal [facility] Comment on above: Performed By: #### C OVGG #### [facility] [address] [place] [id number] SARS-CoV-2 (COVID-19) IgG IA Ql Negative Negative [facility] Work Phone: Comment on above: SOURCE: .No IgG anti bodies to SARS-CoV-2 nucleocapsid proteins detected. Negative results do not rule out SARS-CoV-2 (COVID-19) infection as negative results can be seen during the early stage of infection, in immunosuppressed patients, or in some individuals who had an asymptomatic or mild illness. Follow-up testing with a molecular diagnostic test should be considered to rule out acute infection in symptomatic individuals..Please note: This test can NOT be used for evaluating vaccine response. It does not detect antibodies against the vaccine antigen spike proteins..This test is for in vitro diagnostic use under the FDA Emergency Use Authorization (EUA) for US laboratories certified under CLIA to perform moderate or high complexity tests. This test has not been FDA cleared or approved. This test should not be used for screening of donated blood. Tobacco Screening.on 022 Tobacco use status [facility] b) No M [facility] Work Phone: Office Visit (Family Medicin e)on 09-26-2021 Follow-up visit Diagnoses/Problems Type 2 diabetes mellitus, uncontrolled (250.02) (E11.65) Patient Discussion/Summary By signing my name below, I, Kirill Hinton, attest that this documentation has been prepared under the direction and in the presence of Dr. Reyes Sullivan. All medical record entries made by the Kirill were at my direction and personally dictated by me. I have reviewed the chart and agree that the record accurately reflects my personal performance of the history, physical exam, discussion and plan. Have asked pt to f/u with her aircraft hydraulic equipment mechanic (Dr. Cerrato) regarding her elevated HgbA1C and her desire to obtain a FreeStyle Gemma (I asked my nurse to call Dr. Cerrato's office for an appointment for this patient but the office as closed already for the day; she will attempt to call Wednesday to be certain that patient gets an appointment) Provider Impressions Her main reason for today's visit was to obtain FreeStyle Gemma to be better able to monitor her BSs and not have to 'prick my finger'. I reviewed her bw results with her and told her that her diabetes is very much out of control (she became very upset with me stating stop telling me that my diabetes is out of control) History of Present Illness FUV for diabetes, blood work and discuss Librea 14 for blood sugars. Shade is a 61 year old female presenting for a follow up on diabetes and blood work. - Pt has not seen me since 08/2020- and it was only for a Rx Valium for a MRI she was having; prior to that ov she was last seen 09/2019 - Sees Dr. Cerrato for diabetes - insulin was changed but she has not followed up since (reports last appt was in March) - I never know what doctors to go to. - She has not seen Dr. Cerrato since March 2021 - She claims to have been under the impression that she had to come to her PCP for everything and offers this as the reason she has not followed up with Dr. Cerrato regarding obtaining FreeStyle Gemma. - States she came here today to get Gemma 14 for blood sugars and to have blood work done - She feels that Gemma 14 will be of great help to her. - Had an episode of SOB and lower extremity edema on 09/05/2021 - states she called on-call doctor, Dr. London on 09/06/2021. Pt was upset that the doctor did not advise her definitively what to do like if she should go to ther ER. She also consulted her friend who she states is an RN - this friend advised her to go to ER. She ultimately did not end up going to ER and states she got progressively better over the days following the episode. She did call my office on 09/08/21 and was told to go to ER for further evaluation of her shortness of breath and leg edema. (she was hesitant to go due to COVID and long wait times). - She becomes upset/agitated - upset she has waiting a month for this appointment and I can't help her. - She claims I try to do what I am supposed to do but nobody helps me. - She also states I never like to come here because I have to wait forever to be seen. - She expresses a desire to talk to the office manage today. (I offered her the option to talk to the radio officer) Active Problems Acute bronchitis (466.0) (J20.9) Chest pain (786.50) (R07.9) Depression (311) (F32.A) Foot pain, unspecified laterality Hyperlipidemia (272.4) (E78.5) Limb pain (729.5) (M79.609) Peripheral edema (782.3) (R60.9) Situational anxiety (300.09) (F41.8) Sleep disorder (780.50) (G47.9) Type 2 diabetes mellitus, uncontrolled (250.02) (E11.65) Past Medical History History of bronchitis (V12.69) (Z87.09) Resolved Date: Unknown History of depression (V11.8) (Z86.59) Resolved Date: Unknown History of hyperlipidemia (V12.29) (Z86.39) Resolved Date: Unknown History of type 2 diabetes mellitus (V12.29) (Z86.39) Resolved Date: Unknown Noncompliance with treatment (V15.81) (Z91.19) Resolved Date: Unknown Medical record states this PT is non compliant with medical treatment relating to diabetes. Surgical History History of Dilation And Curettage Of Cervical Stump History of Hand Surgery Resolved Date: Postoperative Medical records states this procedure is to correct Dupuytren contracture. History of Tonsillectomy Resolved Date: Postoperative Family History Family history of Hypertension (V17.49) Family history of Cardiac Failure Family history of Hypertension (V17.49) Family history of Acute Myocardial Infarction (V17.3) PT listed history for Aunt or Uncle. Family history of Cancer PT listed history for Sibling. 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 Normal [facility] Tobacco Screening.on 022 Adult depression screening assessment Negative [facility] Work Phone: Tobacco use status [facility] b) No M [facility] Work Phone: ALBUMIN, URINE SPOTon 2021 ALBUMIN,URINE 193.0 mg/L Normal Not Established [facility] Comment on above: Performed By: #### A LBSP #### [facility] [address] [place] [address] ALBUMIN/CREAT RATIO 417.7 ug/mg sole splitter High 0.0 - 30.0 [facility] Comment on above: Performed By: #### A LBSP #### [facility] [address] [place] [address] CREATININE,URINE 46.2 mg/dL Normal 20.0 - 320.0 [facility] Comment on above: Performed By: #### A LBSP #### [facility] [address] [place] [address] COMPREHENSIVE PANELon 2021 Albumin [Mass/Vol] 3.8 g/dL Normal 3.4 - 5.0 [facility] Comment on above: Performed By: #### C MP #### [facility] [address] [place] [address] ALP [Catalytic activity/Vol] 132 U/L Normal 33 - 136 [facility] Comment on above: Performed By: #### C MP #### [facility] [address] [place] [address] ALT [Catalytic activity/Vol] 15 U/L Normal 7 - 45 [facility] Comment on above: Result Comment: Sharlene ents treated with Sulfasalazine may generate falsely decreased results for ALT. Performed By: #### C MP #### [facility] [address] [place] [address] Anion gap [Moles/Vol] 12 mmol/L Normal 10 - 20 [facility] Comment on above: Performed By: #### C MP #### [facility] [address] [place] [address] AST [Catalytic activity/Vol] 21 U/L Normal 9 - 39 [facility] Comment on above: Performed By: #### C MP #### [facility] [address] [place] [address] Bilirubin [Mass/Vol] 0.5 mg/dL Normal 0.0 - 1.2 [facility] Comment on above: Performed By: #### C MP #### [facility] [address] [place] [address] Calcium [Mass/Vol] 10.0 mg/dL Normal 8.6 - 10.6 [facility] Comment on above: Performed By: #### C MP #### [facility] [address] [place] [address] Chloride [Moles/Vol] 103 mmol/L Normal 98 - 107 [facility] Comment on above: Performed By: #### C MP #### [facility] [address] [place] [address] Creatinine [Mass/Vol] 0.67 mg/dL Normal 0.50 - 1.05 [facility] Comment on above: Performed By: #### C MP #### [facility] [address] [place] [address] eGFR FEMALE >90 Normal >90 [facility] Comment on above: Result Comment: CALC ULATIONS OF ESTIMATED GFR ARE PERFORMED USING THE 2020 CKD-EPI STUDY REFIT EQUATION WITHOUT THE RACE VARIABLE FOR THE IDMS-TRACEABLE CREATININE METHODS. https://jasn.asnjournals.org/content/early/ASN 716657 Performed By: #### C MP #### [facility] [address] [place] [address] Glucose [Mass/Vol] 90 mg/dL Normal 74 - 99 [facility] Comment on above: Performed By: #### C MP #### [facility] [address] [place] [address] HCO3 (Bld) [Moles/Vol] 30 mmol/L Normal 21 - 32 [facility] Comment on above: Performed By: #### C MP #### [facility] [address] [place] [address] Potassium [Moles/Vol] 4.3 mmol/L Normal 3.5 - 5.3 [facility] Comment on above: Performed By: #### C MP #### [facility] [address] [place] [address] Protein [Mass/Vol] 6.8 g/dL Normal 6.4 - 8.2 [facility] Comment on above: Performed By: #### C MP #### [facility] [address] [place] [address] Sodium [Moles/Vol] 141 mmol/L Normal 136 - 145 [facility] Comment on above: Performed By: #### C MP #### [facility] [address] [place] [address] Urea nitrogen [Mass/Vol] 18 mg/dL Normal 6 - 23 [facility] Comment on above: Performed By: #### C MP #### [facility] [address] [place] [address] HEMOGLOBIN A1Con 09-19-2021 Glucose [Mass/Vol] 249 mg/dL Normal [facility] Comment on above: Performed By: #### H BA1E #### [facility] [address] [place] [address] HbA1c (Bld) [Mass fraction] 10.3 % Abnormal [facility] Comment on above: Result Comment: Diag nosis of Diabetes-Adults Non-Diabetic: < or = 5.6% Increased risk for developing diabetes: 5.7-6.4% Diagnostic of diabetes: > or = 6.5% . Monitoring of Diabetes Age (y) Therapeutic Goal (%) Adults: >18 <7.0 Pediatrics: 13-18 <7.5 7-12 <8.0 0- 6 7.5-8.5 [place] [employer]. Diabetes Care 33(S1), Sep 2009. Performed By: #### H BA1E #### [facility] [address] [place] [address] Hemoglobin A1Con 09-19-2021 Glucose [Mass/Vol] 249 mg/dL [facility] Work Phone: HbA1c (Bld) [Mass fraction] 10.3 % Abnormal [facility] Work Phone: Comment on above: Diagnosis of Diabete s-Adults Non-Diabetic: < or = 5.6% Increased risk for developing diabetes: 5.7-6.4% Diagnostic of diabetes: > or = 6.5%. Monitoring of Diabetes Age (y) Therapeutic Goal (%) Adults: >18 <7.0 Pediatrics: 13-18 <7.5 7-12 <8.0 0- 6 7.5-8.5 [place] [employer]. Diabetes Care 33(S1), Sep 2009. LIPID PANEL (CORONARY RISK 2 )on 09-19-2021 Cholesterol [Mass/Vol] 184 mg/dL Normal 0 - 199 [facility] Comment on above: Result Comment: . AGE DESIRABLE BORDERLINE HIGH HIGH 0-19 Y 0 - 169 170 - 199 >/= 200 20-24 Y 0 - 189 190 - 224 >/= 225 >24 Y 0 - 199 200 - 239 >/= 240 All ranges are based on fasting samples. Specific therapeutic targets will vary based on patient-specific cardiac risk. . Pediatric guidelines reference:Pediatrics 2011, 128(S5). Adult guidelines reference: NCEP ATPIII Guidelines, ABIGAIL 2001, 258:2486-97 . Venipuncture immediately after or during the administration of Metamizole may lead to falsely low results. Testing should be performed immediately prior to Metamizole dosing. Performed By: #### L IPID #### [facility] [address] [place] [address] Cholesterol in HDL [Mass/Vol] 65.4 mg/dL Normal [facility] Comment on above: Result Comment: . AGE VERY LOW LOW NORMAL HIGH 0-19 Y < 35 < 40 40-45 ---- 20-24 Y ---- < 40 >45 ---- >24 Y ---- < 40 40-60 >60 . Performed By: #### L IPID #### [facility] [address] [place] [address] Cholesterol in LDL [Mass/Vol] 102 mg/dL High 0 - 99 [facility] Comment on above: Result Comment: . NEAR BORD AGE DESIRABLE OPTIMAL HIGH HIGH VERY HIGH 0-19 Y 0 - 109 --- 110-129 >/= 130 ---- 20-24 Y 0 - 119 --- 120-159 >/= 160 ---- >24 Y 0 - 99 100-129 130-159 160-189 >/=190 . Performed By: #### L IPID #### [facility] [address] [place] [address] Cholesterol in VLDL [Mass/Vol] 16 mg/dL Normal 0 - 40 [facility] Comment on above: Performed By: #### L IPID #### [facility] [address] [place] [address] Cholesterol.total/Louann sterol in HDL [Mass ratio] 2.8 {ratio} Normal [facility] Comment on above: Result Comment: REF VALUES DESIRABLE < 3.4 HIGH RISK > 5.0 Performed By: #### L IPID #### [facility] [address] [place] [address] Triglyceride [Mass/Vol] 82 mg/dL Normal 0 - 149 [facility] Comment on above: Result Comment: . AGE DESIRABLE BORDERLINE HIGH HIGH VERY HIGH 0 D-90 D 19 - 174 ---- ---- ---- 91 D- 9 Y 0 - 74 75 - 99 >/= 100 ---- 10-19 Y 0 - 89 90 - 129 >/= 130 ---- 20-24 Y 0 - 114 115 - 149 >/= 150 ---- >24 Y 0 - 149 150 - 199 200- 499 >/= 500 . Venipuncture immediately after or during the administration of Metamizole may lead to falsely low results. Testing should be performed immediately prior to Metamizole dosing. Performed By: #### L IPID #### [facility] [id number] [place] [address] Laboratory - Chemistry and C hemistry - challengeon 09-19-2021 Albumin BCP dye [Mass/Vol] 3.8 g/dL 3.4 - 5.0 [facility] Work Phone: Albumin Ql (U) 193.0 mg/L See Below [facility] Work Phone: Comment on above: Reference Range: Not Established Albumin/Creatinine DL <= 20 mg/L (U) [Mass ratio] 417.7 {ug/mg_crt} above high threshold 0.0 - 30.0 [facility] Work Phone: ALP [Catalytic activity/Vol] 132 U/L 33 - 136 [facility] Work Phone: ALT With P-5'-P [Catalytic activity/Vol] 15 U/L 7 - 45 [facility] Work Phone: Comment on above: Patients treated wit h Sulfasalazine may generate falsely decreased results for ALT. Anion gap [Moles/Vol] 12 mmol/L 10 - 20 [facility] Work Phone: AST With P-5'-P [Catalytic activity/Vol] 21 U/L 9 - 39 [facility] Work Phone: Bilirubin [Mass/Vol] 0.5 mg/dL 0.0 - 1.2 [facility] Work Phone: Calcium [Mass/Vol] 10.0 mg/dL 8.6 - 10.6 [facility] Work Phone: Chloride [Moles/Vol] 103 mmol/L 98 - 107 [facility] Work Phone: CO2 [Moles/Vol] 30 mmol/L 21 - 32 [facility] Work Phone: Creatinine (U) [Mass/Vol] 46.2 mg/dL See Below [facility] Work Phone: Comment on above: Reference Range: 20. 0 - 320.0 Creatinine [Mass/Vol] 0.67 mg/dL See Below [facility] Work Phone: Comment on above: Reference Range: 0.5 0 - 1.05 Glucose [Mass/Vol] 90 mg/dL 74 - 99 [facility] Work Phone: Potassium [Moles/Vol] 4.3 mmol/L 3.5 - 5.3 [facility] Work Phone: Protein [Mass/Vol] 6.8 g/dL 6.4 - 8.2 [facility] Work Phone: Sodium [Moles/Vol] 141 mmol/L 136 - 145 [facility] Work Phone: Urea nitrogen [Mass/Vol] 18 mg/dL 6 - 23 [facility] Work Phone: Lipid Panelon 09-19-2021 Cholesterol [Mass/Vol] 184 mg/dL 0 - 199 [facility] Work Phone: Comment on above: . AGE DESIRABLE BORD ALE HIGH HIGH 0-19 Y 0 - 169 170 - 199 >/= 200 20-24 Y 0 - 189 190 - 224 >/= 225 >24 Y 0 - 199 200 - 239 >/= 240 All ranges are based on fasting samples. Specific therapeutic targets will vary based on patient-specific cardiac risk.. Pediatric guidelines reference:Pediatrics 2011, 128(S5). Adult guidelines reference: NCEP ATPIII Guidelines, ABIGAIL 2001, 258:2486-97. Venipuncture immediately after or during the administration of Metamizole may lead to falsely low results. Testing should be performed immediately prior to Metamizole dosing. Cholesterol in HDL [Mass/Vol] 65.4 mg/dL [facility] Work Phone: Comment on above: . AGE VERY LOW LOW N ORMAL HIGH 0-19 Y < 35 < 40 40-45 ---- 20-24 Y ---- < 40 >45 ---- >24 Y ---- < 40 40-60 >60. Cholesterol in LDL [Mass/Vol] 102 mg/dL above high threshold 0 - 99 [facility] Work Phone: Comment on above: . NEAR BORD AGE KIMBERLYN RABLE OPTIMAL HIGH HIGH VERY HIGH 0-19 Y 0 - 109 --- 110-129 >/= 130 ---- 20-24 Y 0 - 119 --- 120-159 >/= 160 ---- >24 Y 0 - 99 100-129 130-159 160-189 >/=190. Cholesterol.total/Louann sterol in HDL [Mass ratio] 2.8 {ratio} [facility] Work Phone: Comment on above: REF VALUESDESIRABLE < 3.4HIGH RISK > 5.0 Triglyceride [Mass/Vol] 82 mg/dL 0 - 149 [facility] Work Phone: Comment on above: . AGE DESIRABLE BORD ALE HIGH HIGH VERY HIGH 0 D-90 D 19 - 174 ---- ---- ----91 D- 9 Y 0 - 74 75 - 99 >/= 100 ---- 10-19 Y 0 - 89 90 - 129 >/= 130 ---- 20-24 Y 0 - 114 115 - 149 >/= 150 ---- >24 Y 0 - 149 150 - 199 200- 499 >/= 500. Venipuncture immediately after or during the administration of Metamizole may lead to falsely low results. Testing should be performed immediately prior to Metamizole dosing. Lipid Panel 16 mg/dL 0 - 40 [facility] Work Phone: No Panel Informationon 09-19 >90 >90 [facility] Work Phone: Comment on above: CALCULATIONS OF ANUJ MATED GFR ARE PERFORMED USING THE 2020 CKD-EPI STUDY REFIT EQUATION WITHOUT THE RACE VARIABLE FOR THE IDMS-TRACEABLE CREATININE METHODS.https://[email or web address].asnjournals.org/content/early// ASN.[email or web address] MRI BRAIN W WO CONTRASTon [facility]: [id number] Res[facility] Imaging ACCESSION EXAM DATE/TIME PROCEDURE ORDERING PROVIDER [id number] 08/12/2020 09:18 EST MRI Brain w/ + w/o MD MANDI, FLEX Contrast CPT code 06691 Reason For Exam (MRI Brain w/ + w/o Contrast) cavernous sinus mass Report EXAM TYPE: MRI Brain w/ + w/o Contrast EXAM DATE AND TIME: 08/12/2020 9:18 AM EST INDICATION: Cavernous sinus mass COMPARISON: NONE TECHNIQUE: MR imaging of the brain and orbits was obtained before and after administration of intravenous contrast (10 ml of Gadavist). FINDINGS: Orbits: There is no preseptal soft tissue swelling. The lacrimal glands are normal in size. The globes are normal in appearance. Mild edema within the left lateral rectus muscle belly on STIR and T2 fat saturated coronal orbital imaging. No associated abnormal enhancement. This is of uncertain etiology. Extraocular muscles are otherwise normal in size and appear symmetric. No retrobulbar mass or collection is seen. The optic nerves, chiasm and tracts are normal in size and signal and show no abnormal enhancement. Cavernous sinuses are normal in appearance. The superior ophthalmic veins are normal in size. Brain: Ventricles and sulci are normal in size and configuration for patient age. No extra axial collection. 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 No diffusion evidence of acute infarct. There are multiple foci of T2/FLAIR hyperintense signal within the cerebral white matter, while nonspecific, are most compatible with microangiopathy. No cerebral edema, mass effect or evidence of intracranial mass. No abnormal enhancement. Cerebellar tonsils are in normal location. The intracranial flow voids are normal in appearance. Visualized paranasal sinuses and mastoids are normal in signal. Bone marrow signal is unremarkable. IMPRESSION: 1. No visualized mass in the cavernous sinuses. Consider MRA head for evaluation for cavernous carotid aneurysm if there is continued Magnetic Resonance Imaging Report concern. 2. Mild edema within the left lateral rectus muscle belly without associated increase in size, abnormal morphology or abnormal enhancement. This is of uncertain etiology. 3. 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 No diffusion evidence of acute infarct. 4. Changes of microangiopathy. Report Dictated on Workstation: [id number] --- Final --- Dictated: 08/12/2020 2:11 pm Dictating Physician: MD PINON NEIL Signed Date and Time: 08/12/2020 2:38 pm Signed by: MD PINON NEIL Transcribed Date and Time: 08/12/2020 2:11 [place], [place], [facility] Incoming Radiology Results From [facility] - 08/12/2020 2:39 PM EST Patient Name: SHADE BRAMBILA Magnetic Resonance Imaging ACCESSION EXAM DATE/TIME PROCEDURE ORDERING PROVIDER [id number] 08/12/2020 09:18 EST MRI Brain w/ + w/o MD MANDI, FLEX Contrast CPT code 57506 Reason For Exam (MRI Brain w/ + w/o Contrast) cavernous sinus mass Report EXAM TYPE: MRI Brain w/ + w/o Contrast EXAM DATE AND TIME: 08/12/2020 9:18 AM EST INDICATION: Cavernous sinus mass COMPARISON: NONE TECHNIQUE: MR imaging of the brain and orbits was obtained before and after administration of intravenous contrast (10 ml of Gadavist). FINDINGS: Orbits: There is no preseptal soft tissue swelling. The lacrimal glands are normal in size. The globes are normal in appearance. Mild edema within the left lateral rectus muscle belly on STIR and T2 fat saturated coronal orbital imaging. No associated abnormal enhancement. This is of uncertain etiology. Extraocular muscles are otherwise normal in size and appear symmetric. No retrobulbar mass or collection is seen. The optic nerves, chiasm and tracts are normal in size and signal and show no abnormal enhancement. Cavernous sinuses are normal in appearance. The superior ophthalmic veins are normal in size. Brain: Ventricles and sulci are normal in size and configuration for patient age. No extra axial collection. 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 No diffusion evidence of acute infarct. There are multiple foci of T2/FLAIR hyperintense signal within the cerebral white matter, while nonspecific, are most compatible with microangiopathy. No cerebral edema, mass effect or evidence of intracranial mass. No abnormal enhancement. Cerebellar tonsils are in normal location. The intracranial flow voids are normal in appearance. Visualized paranasal sinuses and mastoids are normal in signal. Bone marrow signal is unremarkable. IMPRESSION: 1. No visualized mass in the cavernous sinuses. Consider MRA head for evaluation for cavernous carotid aneurysm if there is continued Magnetic Resonance Imaging Report concern. 2. Mild edema within the left lateral rectus muscle belly without associated increase in size, abnormal morphology or abnormal enhancement. This is of uncertain etiology. 3. 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 No diffusion evidence of acute infarct. 4. Changes of microangiopathy. Report Dictated on Workstation: [id number] --- Final --- Dictated: 08/12/2020 2:11 pm Dictating Physician: MD PINON NEIL Signed Date and Time: 08/12/2020 2:38 pm Signed by: MD PINON NEIL Transcribed Date and Time: 08/12/2020 2:11 [place] MRI Brain w/ + w/o Contrasto n 08-12-2020 MRI Brain w/ + w/o Contrast [id number] Magnetic Resonance Imaging ACCESSION EXAM DATE/TIME PROCEDURE ORDERING PROVIDER [id number] 08/12/2020 09:18 EST MRI Brain w/ + w/o MD MANDI, FLEX Contrast CPT code 79866 Reason For Exam (MRI Brain w/ + w/o Contrast) cavernous sinus mass Report EXAM TYPE: MRI Brain w/ + w/o Contrast EXAM DATE AND TIME: 08/12/2020 9:18 AM EST INDICATION: Cavernous sinus mass COMPARISON: NONE TECHNIQUE: MR imaging of the brain and orbits was obtained before and after administration of intravenous contrast (10 ml of Gadavist). FINDINGS: Orbits: There is no preseptal soft tissue swelling. The lacrimal glands are normal in size. The globes are normal in appearance. Mild edema within the left lateral rectus muscle belly on STIR and T2 fat saturated coronal orbital imaging. No associated abnormal enhancement. This is of uncertain etiology. Extraocular muscles are otherwise normal in size and appear symmetric. No retrobulbar mass or collection is seen. The optic nerves, chiasm and tracts are normal in size and signal and show no abnormal enhancement. Cavernous sinuses are normal in appearance. The superior ophthalmic veins are normal in size. Brain: Ventricles and sulci are normal in size and configuration for patient age. No extra axial collection. 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 No diffusion evidence of acute infarct. There are multiple foci of T2/FLAIR hyperintense signal within the cerebral white matter, while nonspecific, are most compatible with microangiopathy. No cerebral edema, mass effect or evidence of intracranial mass. No abnormal enhancement. Cerebellar tonsils are in normal location. The intracranial flow voids are normal in appearance. Visualized paranasal sinuses and mastoids are normal in signal. Bone marrow signal is unremarkable. IMPRESSION: 1. No visualized mass in the cavernous sinuses. Consider MRA head for evaluation for cavernous carotid aneurysm if there is continued Magnetic Resonance Imaging Report concern. 2. Mild edema within the left lateral rectus muscle belly without associated increase in size, abnormal morphology or abnormal enhancement. This is of uncertain etiology. 3. 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 No diffusion evidence of acute infarct. 4. Changes of microangiopathy. Report Dictated on Workstation: [id number] Final Dictated: 08/12/2020 2:11 pm Dictating Physician: MD PINON NEIL Signed Date and Time: 08/12/2020 2:38 pm Signed by: MD PINON NEIL Transcribed Date and Time: 08/12/2020 2:11 Normal [facility] CR Knee Complete 4+ Views [facility] 05-20-2018 CR Knee Complete 4+ Views Left Patient Name: SHADE BRAMBILA Diagnostic Radiology Exam Date/Time 05/20/2018 15:37:36 EDT Exam CR Knee Complete 4+ Views Left Ordering Physician MD LOBO, SUKHDEEP Miller Accession Number [id number] CPT4 Codes 60251 () Reason For Exam fall Report LEFT KNEE: CLINICAL INDICATION: Left knee pain. TECHNIQUE: AP, lateral, oblique and sunrise COMPARISON: None. FINDINGS: There is no evidence for fracture or subluxation. There are mild tricompartmental degenerative changes. This includes slight asymmetric narrowing of the medial joint compartment. There is chondrocalcinosis, lateral greater than medial. Patellar and quadriceps tendon enthesophytes are present. There is a moderate to large suprapatellar joint effusion. Normal bone mineral density. IMPRESSION: 1.\X09\No acute fracture or subluxation. 2.\X09\Mild degenerative changes including chondrocalcinosis, lateral greater than medial. 3.\X09\Moderate to large suprapatellar joint effusion. Report Dictated on Final Dictating Physician: MD SALAZAR JASON Signed Date and Time: 05/20/2018 4:34 pm Signed by: MD SALAZAR JASON Transcribed Date and Time: 05/20/2018 4:35 Normal [facility] CR Foot Complete 3+ Views [place] 02-21-2018 CR Foot Complete 3+ Views Left Patient Name: SHADE BRAMBILA Diagnostic Radiology Exam Date/Time 02/21/2018 13:48:01 EDT Exam CR Foot Complete 3+ Views Left Ordering Physician ANTHONY SPENCE D.O., RUDOLPH Accession Number [id number] CPT4 Codes 16578 () Reason For Exam left great toe swelling and bruising after injury Report LEFT FOOT, THREE VIEWS CLINICAL: Left great toe swelling and bruising after injury COMPARISON: February 10, 2016 left foot x-ray performed at [facility] Three views of the left foot are provided. The bones are osteopenic. Multilevel prominent degenerative changes throughout the foot and the included portion of the ankle are again noted. There is an acute, comminuted fracture deformity involving the mid aspect of the great proximal phalanx, with mild impaction. There is also remains indeterminate deformity involving the base of the fifth toe proximal phalanx, best seen on the oblique projection view. Please correlate with any focal point tenderness. She swelling overlying the great toe distribution and the dorsum of the foot. IMPRESSION: Acute, tiny fracture involving the great toe proximal phalanx. Age-indeterminate deformity involving the base of the fifth toe proximal phalanx. Osteopenia and prominent degenerative changes. Report Dictated on Final Dictating Physician: JOSIANE HOLGUIN Signed Date and Time: 02/21/2018 2:17 pm Signed by: JOSIANE HOLGUIN Transcribed Date and Time: 02/21/2018 2:18 Normal [facility] Vital Signs Date Time Vital Sign Value Performing Clinician Vinayak contreras 02-09-2025 10:33-0400 Body temperature 97.39 [degF] Hu Nielsenk DPM Work Phone: [facility] 02-09-2025 10:33-0400 Diastolic blood pressure 87 mm[Hg] Hu Nielsenk DPM Work Phone: [facility] 02-09-2025 10:33-0400 Heart rate 104 /min Hu Pickard DPM Work Phone: [facility] 02-09-2025 10:33-0400 SaO2% (BldA) [Mass fraction] 100 % Hu Pickard DPM Work Phone: [facility] 02-09-2025 10:33-0400 Systolic blood pressure 139 mm[Hg] Hu Pickard DPM Work Phone: [facility] 01-30-2025 13:50-0400 Body temperature 96.69 [degF] Franky Barnes MD Work Phone: [facility] 01-30-2025 13:50-0400 Diastolic blood pressure 70 mm[Hg] Franky Barnes MD Work Phone: [facility] 01-30-2025 13:50-0400 Heart rate 75 /min Franky Barnes MD Work Phone: [facility] 01-30-2025 13:50-0400 Respiratory rate 18 /min Franky Barnes MD Work Phone: [facility] 01-30-2025 13:50-0400 SaO2% (BldA) [Mass fraction] 98 % Franky Barnes MD Work Phone: [facility] 01-30-2025 13:50-0400 Systolic blood pressure 114 mm[Hg] Franky Barnes MD Work Phone: [facility] 01-19-2025 10:18-0400 Body temperature 96.69 [degF] Hu Pickard DPM Work Phone: [facility] 01-19-2025 10:18-0400 Diastolic blood pressure 59 mm[Hg] Hu Picakrd DPM Work Phone: [facility] 01-19-2025 10:18-0400 Heart rate 77 /min Hu Nielsenk DPM Work Phone: [facility] 01-19-2025 10:18-0400 Respiratory rate 20 /min Hu Saldivarbiak DPM Work Phone: [facility] 01-19-2025 10:18-0400 SaO2% (BldA) [Mass fraction] 97 % Hu Nielsenk DPM Work Phone: [facility] 01-19-2025 10:18-0400 Systolic blood pressure 137 mm[Hg] Hu Pickard DPM Work Phone: [facility] 01-04-2025 09:56-0400 Body temperature 97.3 [degF] Hu Pickard DPM Work Phone: [facility] 01-04-2025 09:56-0400 Diastolic blood pressure 60 mm[Hg] Hu Pickard DPM Work Phone: [facility] 01-04-2025 09:56-0400 Heart rate 76 /min Hu Pickard DPM Work Phone: [facility] 01-04-2025 09:56-0400 SaO2% (BldA) [Mass fraction] 100 % Hu Pickard DPM Work Phone: [facility] 01-04-2025 09:56-0400 Systolic blood pressure 117 mm[Hg] Hu Nielsenk DPM Work Phone: [facility] 12-22-2024 14:04-0400 Diastolic blood pressure 58 mm[Hg] [facility] Work Phone: [facility] 12-22-2024 14:04-0400 Heart rate 73 /min [facility] Work Phone: [facility] 12-22-2024 14:04-0400 Respiratory rate 16 /min [facility] Work Phone: [facility] 12-22-2024 14:04-0400 SaO2% (BldA) [Mass fraction] 98 % [facility] Work Phone: [facility] 12-22-2024 14:04-0400 Systolic blood pressure 115 mm[Hg] [facility] Work Phone: [facility] 12-22-2024 12:10-0400 Body temperature 98.6 [degF] [facility] Work Phone: [facility] 12-21-2024 08:30-0400 Body temperature 96.69 [degF] Hu Pickard DPM Work Phone: [facility] 12-21-2024 08:30-0400 Diastolic blood pressure 65 mm[Hg] Hu Pickard DPM Work Phone: [facility] 12-21-2024 08:30-0400 Heart rate 61 /min Hu Pickard DPM Work Phone: [facility] 12-21-2024 08:30-0400 SaO2% (BldA) [Mass fraction] 96 % Hu Pickard DPM Work Phone: [facility] 12-21-2024 08:30-0400 Systolic blood pressure 102 mm[Hg] Hu Pickard DPM Work Phone: [facility] 12-19-2024 16:34-0400 Body mass index (BMI) [Ratio] 29.77 kg/m2 Franky Barnes MD Work Phone: [facility] 12-19-2024 16:34-0400 Body weight 88.8 kg Franky Barnes MD Work Phone: [facility] 12-19-2024 14:24-0400 Body temperature 96.91 [degF] Franky Barnes MD Work Phone: [facility] 12-19-2024 14:24-0400 Diastolic blood pressure 62 mm[Hg] Franky Barnes MD Work Phone: [facility] 12-19-2024 14:24-0400 Heart rate 74 /min Franky Barnes MD Work Phone: [facility] 12-19-2024 14:24-0400 Respiratory rate 18 /min Franky Barnes MD Work Phone: [facility] 12-19-2024 14:24-0400 SaO2% (BldA) [Mass fraction] 98 % Franky Barnes MD Work Phone: [facility] 12-19-2024 14:24-0400 Systolic blood pressure 103 mm[Hg] Franky Barnes MD Work Phone: [facility] 12-14-2024 12:59-0400 Body mass index (BMI) [Ratio] 29.8 kg/m2 Ayan Aurin FINANCIAL REPORTING ANALYST.HEEL CURVER Work Phone: [facility] 12-14-2024 12:59-0400 Body weight 88.91 kg Ayan Aurin FINANCIAL REPORTING ANALYST.HEEL CURVER Work Phone: [facility] 12-14-2024 12:59-0400 Diastolic blood pressure 59 mm[Hg] Ayan Aurin FINANCIAL REPORTING ANALYST.HEEL CURVER Work Phone: [facility] 12-14-2024 12:59-0400 Heart rate 87 /min Ayan Aurin FINANCIAL REPORTING ANALYST.HEEL CURVER Work Phone: [facility] 12-14-2024 12:59-0400 SaO2% (BldA) [Mass fraction] 98 % Ayan Aurin FINANCIAL REPORTING ANALYST.HEEL CURVER Work Phone: [facility] 12-14-2024 12:59-0400 Systolic blood pressure 132 mm[Hg] Ayan Aurin FINANCIAL REPORTING ANALYST.HEEL CURVER Work Phone: [facility] 12-08-2024 10:31-0400 Body temperature 96.91 [degF] Hu Pickard DPM Work Phone: [facility] 12-08-2024 10:31-0400 Diastolic blood pressure 63 mm[Hg] Hu Nielsenk DPM Work Phone: [facility] 12-08-2024 10:31-0400 Heart rate 74 /min Hu Nielsenk DPM Work Phone: [facility] 12-08-2024 10:31-0400 Respiratory rate 20 /min Hu Saldivarbiak DPM Work Phone: [facility] 12-08-2024 10:31-0400 SaO2% (BldA) [Mass fraction] 100 % Hu Saldivarbiak DPM Work Phone: [facility] 12-08-2024 10:31-0400 Systolic blood pressure 136 mm[Hg] Hu Saldivarbiak DPM Work Phone: [facility] 12-01-2024 10:15-0400 Body temperature 97.11 [degF] Hu Nielsenk DPM Work Phone: [facility] 12-01-2024 10:15-0400 Diastolic blood pressure 68 mm[Hg] Hu Pickard DPM Work Phone: [facility] 12-01-2024 10:15-0400 Heart rate 72 /min Hu Saldivarbiak DPM Work Phone: [facility] 12-01-2024 10:15-0400 SaO2% (BldA) [Mass fraction] 97 % Hu Saldivarbiak DPM Work Phone: [facility] 12-01-2024 10:15-0400 Systolic blood pressure 117 mm[Hg] Hu Saldviarbiak DPM Work Phone: [facility] 11-30-2024 13:29-0400 Body height 172.7 cm [facility] 3 Work Phone: [facility] 11-30-2024 13:29-0400 Body mass index (BMI) [Ratio] 29.33 kg/m2 [facility] 3 Work Phone: [facility] 11-30-2024 13:29-0400 Body temperature 97.39 [degF] [facility] 3 Work Phone: [facility] 11-30-2024 13:29-0400 Body weight 87.5 kg [facility] 3 Work Phone: [facility] 11-30-2024 13:29-0400 Diastolic blood pressure 58 mm[Hg] [facility] 3 Work Phone: [facility] 11-30-2024 13:29-0400 Heart rate 76 /min [facility] 3 Work Phone: [facility] 11-30-2024 13:29-0400 Respiratory rate 16 /min P[facility] 3 Work Phone: [facility] 11-30-2024 13:29-0400 SaO2% (BldA) [Mass fraction] 100 % [facility] 3 Work Phone: [facility] 11-30-2024 13:29-0400 Systolic blood pressure 118 mm[Hg] Pacc 3 Work Phone: [facility] 11-27-2024 14:25-0400 Body temperature 96.8 [degF] Hu Saldivarbiak DPM Work Phone: [facility] 11-27-2024 14:25-0400 Diastolic blood pressure 63 mm[Hg] Hu Saldivarbiak DPM Work Phone: [facility] 11-27-2024 14:25-0400 Heart rate 75 /min Hu Saldivarbiak DPM Work Phone: [facility] 11-27-2024 14:25-0400 SaO2% (BldA) [Mass fraction] 99 % Hu Saldivarbiak DPM Work Phone: [facility] 11-27-2024 14:25-0400 Systolic blood pressure 109 mm[Hg] Hu Saldivarbiak DPM Work Phone: [facility] 11-24-2024 10:39-0400 Body temperature 97 [degF] Hu Saldivarbiak DPM Work Phone: [facility] 11-24-2024 10:39-0400 Diastolic blood pressure 72 mm[Hg] Hu Neeraj DPM Work Phone: [facility] 11-24-2024 10:39-0400 Heart rate 96 /min Hu Neeraj DPM Work Phone: [facility] 11-24-2024 10:39-0400 Respiratory rate 18 /min Hu Neeraj DPM Work Phone: [facility] 11-24-2024 10:39-0400 SaO2% (BldA) [Mass fraction] 96 % Hu Neeraj DPM Work Phone: [facility] 11-24-2024 10:39-0400 Systolic blood pressure 136 mm[Hg] Hu Neeraj DPM Work Phone: [facility] 11-17-2024 15:15-0400 Body height 172.7 cm Shanel Newell APRN.HEEL CURVER Work Phone: [facility] 11-17-2024 15:15-0400 Body mass index (BMI) [Ratio] 30.26 kg/m2 Shanel Newell APRN.HEEL CURVER Work Phone: [facility] 11-17-2024 15:15-0400 Body weight 90.27 kg Shanel Newell APRN.HEEL CURVER Work Phone: [facility] 11-17-2024 15:15-0400 Diastolic blood pressure 46 mm[Hg] Shanel Newell APRN.HEEL CURVER Work Phone: [facility] 11-17-2024 15:15-0400 Heart rate 73 /min Shanel Newell APRN.HEEL CURVER Work Phone: [facility] 11-17-2024 15:15-0400 SaO2% (BldA) [Mass fraction] 99 % Shanel Newell APRN.HEEL CURVER Work Phone: [facility] 11-17-2024 15:15-0400 Systolic blood pressure 100 mm[Hg] Shanel Newell APRN.CNP Work Phone: [facility] 11-17-2024 10:09-0400 Body temperature 97.2 [degF] Hu Pickard DPM Work Phone: [facility] 11-17-2024 10:09-0400 Diastolic blood pressure 65 mm[Hg] Hu Pickard DPM Work Phone: [facility] 11-17-2024 10:09-0400 Heart rate 77 /min Hu Pickard DPM Work Phone: [facility] 11-17-2024 10:09-0400 SaO2% (BldA) [Mass fraction] 99 % Hu Pickard DPM Work Phone: [facility] 11-17-2024 10:09-0400 Systolic blood pressure 154 mm[Hg] Hu Pickard DPM Work Phone: [facility] 11-10-2024 09:52-0500 Body temperature 97.2 [degF] Hu Pickard DPM Work Phone: [facility] 11-10-2024 09:44-0500 Diastolic blood pressure 63 mm[Hg] Hu Pickard DPM Work Phone: [facility] 11-10-2024 09:44-0500 Heart rate 84 /min Hu Pickard DPM Work Phone: [facility] 11-10-2024 09:44-0500 SaO2% (BldA) [Mass fraction] 98 % Hu Pickard DPM Work Phone: [facility] 11-10-2024 09:44-0500 Systolic blood pressure 101 mm[Hg] Hu Pickard DPM Work Phone: [facility] 10-27-2024 09:51-0500 Body temperature 97.81 [degF] Hu Pickard DPM Work Phone: [facility] 10-27-2024 09:51-0500 Diastolic blood pressure 50 mm[Hg] Hu Pickard DPM Work Phone: [facility] 10-27-2024 09:51-0500 Heart rate 100 /min Hu Pickard DPM Work Phone: [facility] 10-27-2024 09:51-0500 Respiratory rate 20 /min Hu Pickard DPM Work Phone: [facility] 10-27-2024 09:51-0500 SaO2% (BldA) [Mass fraction] 98 % Hu Pickard DPM Work Phone: [facility] 10-27-2024 09:51-0500 Systolic blood pressure 104 mm[Hg] Hu Pickard DPM Work Phone: [facility] 10-25-2024 10:29-0500 Body height 172.7 cm Giovanni Garcia Work Phone: [facility] 10-25-2024 10:29-0500 Body mass index (BMI) [Ratio] 31.03 kg/m2 Giovanni Cerrato MD Work Phone: [facility] 10-25-2024 10:29-0500 Body weight 92.53 kg Giovanni Garcia Work Phone: [facility] Comment on above: Per facility 10-25-2024 10:29-0500 Diastolic blood pressure 60 mm[Hg] Giovanni Cerrato MD Work Phone: [facility] 10-25-2024 10:29-0500 Heart rate 75 /min Giovanni Garcia Work Phone: [facility] 10-25-2024 10:29-0500 Respiratory rate 16 /min Giovanni Garcia Work Phone: [facility] 10-25-2024 10:29-0500 SaO2% (BldA) [Mass fraction] 100 % Giovanni Cerrato MD Work Phone: [facility] 10-25-2024 10:29-0500 Systolic blood pressure 126 mm[Hg] Giovanni Cerrato MD Work Phone: [facility] 10-13-2024 09:01-0500 Body temperature 97 [degF] Hu Pickard DPM Work Phone: [facility] 10-13-2024 09:01-0500 Diastolic blood pressure 77 mm[Hg] Hu Pickard DPM Work Phone: [facility] 10-13-2024 09:01-0500 Heart rate 77 /min Hu Nielsenk DPM Work Phone: [facility] 10-13-2024 09:01-0500 Respiratory rate 20 /min Hu Pickard DPM Work Phone: [facility] 10-13-2024 09:01-0500 SaO2% (BldA) [Mass fraction] 98 % Hu Nielsenk DPM Work Phone: [facility] 10-13-2024 09:01-0500 Systolic blood pressure 136 mm[Hg] Hu Pickard DPM Work Phone: [facility] 08-17-2024 13:16-0500 Body temperature 97.3 [degF] Berny Hammer DPM Work Phone: [facility] 08-17-2024 13:16-0500 Diastolic blood pressure 64 mm[Hg] Berny Hammer DPM Work Phone: [facility] 08-17-2024 13:16-0500 Heart rate 105 /min Berny Hammer DPM Work Phone: [facility] 08-17-2024 13:16-0500 SaO2% (BldA) [Mass fraction] 96 % Berny Hammer DPM Work Phone: [facility] 08-17-2024 13:16-0500 Systolic blood pressure 96 mm[Hg] Berny Hammer DPM Work Phone: [facility] 07-26-2024 10:06-0500 Body temperature 98.01 [degF] Berny Hammer DPM Work Phone: [facility] 07-26-2024 10:06-0500 Diastolic blood pressure 63 mm[Hg] Berny Hammer DPM Work Phone: [facility] 07-26-2024 10:06-0500 Heart rate 93 /min Berny Hammer DPM Work Phone: [facility] 07-26-2024 10:06-0500 SaO2% (BldA) [Mass fraction] 94 % Berny Hammer DPM Work Phone: [facility] 07-26-2024 10:06-0500 Systolic blood pressure 129 mm[Hg] Berny Hammer DPM Work Phone: [facility] 07-11-2024 11:59-0500 Body mass index (BMI) [Ratio] 36.52 kg/m2 Ayan Aurin FINANCIAL REPORTING ANALYST.HEEL CURVER Work Phone: [facility] 07-11-2024 11:59-0500 Body weight 108.95 kg Ayan Aurin FINANCIAL REPORTING ANALYST.HEEL CURVER Work Phone: [facility] 07-11-2024 11:59-0500 Diastolic blood pressure 53 mm[Hg] Ayan Aurin FINANCIAL REPORTING ANALYST.HEEL CURVER Work Phone: [facility] 07-11-2024 11:59-0500 Heart rate 94 /min Ayan Aurin FINANCIAL REPORTING ANALYST.HEEL CURVER Work Phone: [facility] 07-11-2024 11:59-0500 SaO2% (BldA) [Mass fraction] 96 % Ayan Aurin FINANCIAL REPORTING ANALYST.HEEL CURVER Work Phone: [facility] 07-11-2024 11:59-0500 Systolic blood pressure 105 mm[Hg] Ayan Aurin FINANCIAL REPORTING ANALYST.HEEL CURVER Work Phone: [facility] 07-07-2024 12:50-0400 Body mass index (BMI) [Ratio] 36.8 kg/m2 Ayan Aurin FINANCIAL REPORTING ANALYST.HEEL CURVER Work Phone: [facility] 07-07-2024 12:50-0400 Body weight 109.77 kg Ayan Aurin FINANCIAL REPORTING ANALYST.HEEL CURVER Work Phone: [facility] 07-07-2024 12:50-0400 Diastolic blood pressure 63 mm[Hg] Ayan Aurin FINANCIAL REPORTING ANALYST.HEEL CURVER Work Phone: [facility] Comment on above: 124/63 post IV lasix 07-07-2024 12:50-0400 Heart rate 75 /min Ayan Aurin FINANCIAL REPORTING ANALYST.HEEL CURVER Work Phone: [facility] 07-07-2024 12:50-0400 SaO2% (BldA) [Mass fraction] 95 % Ayan Aurin FINANCIAL REPORTING ANALYST.HEEL CURVER Work Phone: [facility] 07-07-2024 12:50-0400 Systolic blood pressure 121 mm[Hg] Ayan Aurin FINANCIAL REPORTING ANALYST.HEEL CURVER Work Phone: [facility] Comment on above: 124/63 post IV lasix 07-05-2024 10:05-0400 Body height 172.7 cm Berny Hammer DPM Work Phone: [facility] 07-05-2024 10:05-0400 Body mass index (BMI) [Ratio] 37.56 kg/m2 Berny Hammer DPM Work Phone: [facility] 07-05-2024 10:05-0400 Body temperature 97.39 [degF] Berny Hammer DPM Work Phone: [facility] 07-05-2024 10:05-0400 Body weight 112.04 kg Berny Hammer DPM Work Phone: [facility] 07-05-2024 10:05-0400 Diastolic blood pressure 77 mm[Hg] Berny Hammer DPM Work Phone: [facility] 07-05-2024 10:05-0400 Heart rate 92 /min Berny Hammer DPM Work Phone: [facility] 07-05-2024 10:05-0400 SaO2% (BldA) [Mass fraction] 95 % Berny Hammer DPM Work Phone: [facility] 07-05-2024 10:05-0400 Systolic blood pressure 135 mm[Hg] Berny Hammer DPM Work Phone: [facility] 06-09-2024 12:43-0400 Body mass index (BMI) [Ratio] 35.74 kg/m2 Ayan Aurin FINANCIAL REPORTING ANALYST.HEEL CURVER Work Phone: [facility] 06-09-2024 12:43-0400 Body weight 106.59 kg Ayan Aurin FINANCIAL REPORTING ANALYST.HEEL CURVER Work Phone: [facility] 06-09-2024 12:43-0400 Diastolic blood pressure 76 mm[Hg] Ayan Aurin FINANCIAL REPORTING ANALYST.HEEL CURVER Work Phone: [facility] 06-09-2024 12:43-0400 Heart rate 77 /min Ayan Aurin FINANCIAL REPORTING ANALYST.HEEL CURVER Work Phone: [facility] 06-09-2024 12:43-0400 SaO2% (BldA) [Mass fraction] 98 % Ayan Aurin FINANCIAL REPORTING ANALYST.HEEL CURVER Work Phone: [facility] 06-09-2024 12:43-0400 Systolic blood pressure 156 mm[Hg] Ayan Aurin FINANCIAL REPORTING ANALYST.HEEL CURVER Work Phone: [facility] 06-07-2024 11:20-0400 Diastolic blood pressure 77 mm[Hg] Berny Hammer DPM Work Phone: [facility] 06-07-2024 11:20-0400 Systolic blood pressure 155 mm[Hg] Berny Hammer DPM Work Phone: [facility] 06-07-2024 11:07-0400 Body temperature 96.8 [degF] Berny Hammer DPM Work Phone: [facility] 06-07-2024 11:07-0400 Heart rate 86 /min Berny Hammer DPM Work Phone: [facility] 06-07-2024 11:07-0400 SaO2% (BldA) [Mass fraction] 95 % Berny Hammer DPM Work Phone: [facility] 05-25-2024 09:55-0400 Body mass index (BMI) [Ratio] 35.89 kg/m2 Alfredo Ureña MD Work Phone: [facility] 05-25-2024 09:55-0400 Body temperature 98.2 [degF] Alfredo Ureña MD Work Phone: [facility] 05-25-2024 09:55-0400 Body weight 107.05 kg Alfredo Ureña MD Work Phone: [facility] 05-25-2024 09:55-0400 Diastolic blood pressure 100 mm[Hg] Alfredo Ureña MD Work Phone: [facility] 05-25-2024 09:55-0400 Heart rate 67 /min Alfredo Ureña MD Work Phone: [facility] 05-25-2024 09:55-0400 SaO2% (BldA) [Mass fraction] 96 % Alfredo Ureña MD Work Phone: [facility] 05-25-2024 09:55-0400 Systolic blood pressure 189 mm[Hg] Alfredo Ureña MD Work Phone: [facility] 05-24-2024 11:03-0400 Diastolic blood pressure 69 mm[Hg] Berny Hammer DPM Work Phone: [facility] 05-24-2024 11:03-0400 Systolic blood pressure 146 mm[Hg] Berny Hammer DPM Work Phone: [facility] 05-24-2024 10:50-0400 Body temperature 97.11 [degF] Berny Hammer DPM Work Phone: [facility] 05-24-2024 10:50-0400 Heart rate 68 /min Berny Hammer DPM Work Phone: [facility] 05-24-2024 10:50-0400 SaO2% (BldA) [Mass fraction] 95 % Berny Hammer DPM Work Phone: [facility] 05-10-2024 10:33-0400 Diastolic blood pressure 69 mm[Hg] Berny Hammer DPM Work Phone: [facility] 05-10-2024 10:33-0400 Systolic blood pressure 138 mm[Hg] Berny Hammer DPM Work Phone: [facility] 05-10-2024 10:23-0400 Body temperature 97.39 [degF] Berny Hammer DPM Work Phone: [facility] 05-10-2024 10:23-0400 Heart rate 90 /min Berny Hammer DPM Work Phone: [facility] 05-10-2024 10:23-0400 Respiratory rate 16 /min Berny Hammer DPM Work Phone: [facility] 05-10-2024 10:23-0400 SaO2% (BldA) [Mass fraction] 97 % Berny Hammer DPM Work Phone: [facility] 04-26-2024 12:59-0400 Body mass index (BMI) [Ratio] 34.22 kg/m2 Hamlet Garay MD Work Phone: [facility] 04-26-2024 12:59-0400 Body weight 102.06 kg Hamlet Garay MD Work Phone: [facility] 04-26-2024 12:59-0400 Diastolic blood pressure 65 mm[Hg] Hamlet Garay MD Work Phone: [facility] 04-26-2024 12:59-0400 Heart rate 76 /min Hamlet Garay MD Work Phone: [facility] 04-26-2024 12:59-0400 Systolic blood pressure 133 mm[Hg] Hamlet Garay MD Work Phone: [facility] 04-26-2024 10:05-0400 Diastolic blood pressure 68 mm[Hg] Berny Hammer DPM Work Phone: [facility] 04-26-2024 10:05-0400 Systolic blood pressure 138 mm[Hg] Berny Hammer DPM Work Phone: [facility] 04-26-2024 10:04-0400 Body temperature 97.81 [degF] Berny Hammer DPM Work Phone: [facility] 04-26-2024 10:04-0400 Heart rate 72 /min Berny Hammer DPM Work Phone: [facility] 04-26-2024 10:04-0400 SaO2% (BldA) [Mass fraction] 95 % Berny Hammer DPM Work Phone: [facility] 04-17-2024 11:02-0400 Diastolic blood pressure 67 mm[Hg] Giovanni Cerrato MD Work Phone: [facility] 04-17-2024 11:02-0400 Systolic blood pressure 142 mm[Hg] Giovanni Cerrato MD Work Phone: [facility] 04-17-2024 10:44-0400 Body height 172.7 cm Giovanni Garcia Work Phone: [facility] 04-17-2024 10:44-0400 Body mass index (BMI) [Ratio] 34.23 kg/m2 Giovanni Cerrato MD Work Phone: [facility] 04-17-2024 10:44-0400 Body weight 102.1 kg Giovanni Garcia Work Phone: [facility] 04-17-2024 10:44-0400 Heart rate 94 /min Giovanni Garcia Work Phone: [facility] 04-17-2024 10:44-0400 Respiratory rate 16 /min Giovanni Garcia Work Phone: [facility] 04-17-2024 10:44-0400 SaO2% (BldA) [Mass fraction] 98 % Giovanni Cerrato MD Work Phone: [facility] 04-12-2024 12:21-0400 Diastolic blood pressure 81 mm[Hg] Berny Hammer DPM Work Phone: [facility] 04-12-2024 12:21-0400 Systolic blood pressure 153 mm[Hg] Berny Hammer DPM Work Phone: [facility] 04-12-2024 12:00-0400 Body temperature 97.2 [degF] Berny Hammer DPM Work Phone: [facility] 04-12-2024 12:00-0400 Heart rate 70 /min Berny Hammer DPM Work Phone: [facility] 04-12-2024 12:00-0400 SaO2% (BldA) [Mass fraction] 98 % Berny Hammer DPM Work Phone: [facility] 03-29-2024 10:43-0400 Body temperature 97.39 [degF] Berny Hammer DPM Work Phone: [facility] 03-29-2024 10:43-0400 Diastolic blood pressure 52 mm[Hg] Berny Hammer DPM Work Phone: [facility] 03-29-2024 10:43-0400 Heart rate 74 /min Berny Hammer DPM Work Phone: [facility] 03-29-2024 10:43-0400 SaO2% (BldA) [Mass fraction] 97 % Berny Hammer DPM Work Phone: [facility] 03-29-2024 10:43-0400 Systolic blood pressure 111 mm[Hg] Berny Hammer DPM Work Phone: [facility] 03-13-2024 14:13-0400 Body temperature 97.3 [degF] Hu Pickard DPM Work Phone: [facility] 03-13-2024 14:13-0400 Diastolic blood pressure 78 mm[Hg] Hu Pickard DPM Work Phone: [facility] 03-13-2024 14:13-0400 Heart rate 83 /min Hu Pickard DPM Work Phone: [facility] 03-13-2024 14:13-0400 SaO2% (BldA) [Mass fraction] 95 % Hu Saldivarbiak DPM Work Phone: [facility] 03-13-2024 14:13-0400 Systolic blood pressure 133 mm[Hg] Hu Saldivarbiak DPM Work Phone: [facility] 03-06-2024 15:11-0400 Body mass index (BMI) [Ratio] 35.7 kg/m2 Shanel Newell FINANCIAL REPORTING ANALYST.HEEL CURVER Work Phone: [facility] 03-06-2024 15:11-0400 Body weight 106.5 kg Shanel Newell FINANCIAL REPORTING ANALYST.HEEL CURVER Work Phone: [facility] 03-06-2024 15:11-0400 Diastolic blood pressure 80 mm[Hg] Shanel Newell FINANCIAL REPORTING ANALYST.HEEL CURVER Work Phone: [facility] 03-06-2024 15:11-0400 Heart rate 90 /min Shanel Newell FINANCIAL REPORTING ANALYST.HEEL CURVER Work Phone: [facility] 03-06-2024 15:11-0400 SaO2% (BldA) [Mass fraction] 97 % Shanel Newell FINANCIAL REPORTING ANALYST.HEEL CURVER Work Phone: [facility] 03-06-2024 15:11-0400 Systolic blood pressure 136 mm[Hg] Shanel Newell FINANCIAL REPORTING ANALYST.HEEL CURVER Work Phone: [facility] 03-01-2024 10:55-0400 Diastolic blood pressure 71 mm[Hg] Berny Reyes DPM Work Phone: [facility] 03-01-2024 10:55-0400 Systolic blood pressure 130 mm[Hg] Berny Reyes DPM Work Phone: [facility] 03-01-2024 10:54-0400 Body temperature 97.81 [degF] Berny Reyes DPM Work Phone: [facility] 03-01-2024 10:54-0400 Heart rate 91 /min Berny Reyes DPM Work Phone: [facility] 03-01-2024 10:54-0400 SaO2% (BldA) [Mass fraction] 95 % Berny Reyes DPM Work Phone: [facility] 02-24-2024 11:04-0400 Body mass index (BMI) [Ratio] 34.21 kg/m2 Alfredo Ureña MD Work Phone: [facility] 02-24-2024 11:04-0400 Body temperature 98.29 [degF] Alfredo Ureña MD Work Phone: [facility] 02-24-2024 11:04-0400 Body weight 102.06 kg Alfredo Ureña MD Work Phone: [facility] 02-24-2024 11:04-0400 Diastolic blood pressure 75 mm[Hg] Alfredo Ureña MD Work Phone: [facility] 02-24-2024 11:04-0400 Heart rate 73 /min Alfredo Ureña MD Work Phone: [facility] 02-24-2024 11:04-0400 SaO2% (BldA) [Mass fraction] 95 % Alfredo Ureña MD Work Phone: [facility] 02-24-2024 11:04-0400 Systolic blood pressure 132 mm[Hg] Alfredo Ureña MD Work Phone: [facility] 02-09-2024 14:19-0400 Body height 172.7 cm Eldon Gill DO Work Phone: [facility] 02-09-2024 14:19-0400 Body mass index (BMI) [Ratio] 33.94 kg/m2 Eldon Gill DO Work Phone: [facility] 02-09-2024 14:190400 Body temperature 97 [degF] Eldon Rubioan DO Work Phone: [facility] 02-09-2024 14:190400 Body weight 101.25 kg Eldon Gill DO Work Phone: [facility] 02-09-2024 14:19-0400 Diastolic blood pressure 71 mm[Hg] Eldon Rubioan DO Work Phone: [facility] 02-09-2024 [id number]:19040 Heart rate 74 /min Eldon Rubioan DO Work Phone: [facility] 02-09-2024 14:19-0400 Respiratory rate 18 /min Eldon Gill DO Work Phone: [facility] 02-09-2024 14:19-0400 SaO2% (BldA) [Mass fraction] 97 % Eldon Gill DO Work Phone: [facility] 02-09-2024 14:19-0400 Systolic blood pressure 126 mm[Hg] Eldon Rubioan DO Work Phone: [facility] 12-17-2023 10:52-0400 Body weight 97.98 kg Ayan Aurin FINANCIAL REPORTING ANALYST.HEEL CURVER Work Phone: [facility] 12-17-2023 10:52-0400 Diastolic blood pressure 73 mm[Hg] Ayan Aurin FINANCIAL REPORTING ANALYST.HEEL CURVER Work Phone: [facility] 12-17-2023 10:52-0400 Heart rate 61 /min Ayan Aurin FINANCIAL REPORTING ANALYST.HEEL CURVER Work Phone: [facility] 12-17-2023 10:52-0400 SaO2% (BldA) [Mass fraction] 98 % Ayan Aurin FINANCIAL REPORTING ANALYST.HEEL CURVER Work Phone: [facility] 12-17-2023 10:52-0400 Systolic blood pressure 172 mm[Hg] Ayan Olga Lidiavinod TAYHEEL CURVER Work Phone: [facility] 11-25-2023 10:58-0400 Body temperature 97.9 [degF] Alfredo Ureña MD Work Phone: [facility] 11-25-2023 10:58-0400 Body weight 98.88 kg Alfredo Ureña MD Work Phone: [facility] 11-25-2023 10:58-0400 Diastolic blood pressure 87 mm[Hg] Alfredo Ureña MD Work Phone: [facility] 11-25-2023 10:58-0400 Heart rate 96 /min Alfredo Urñea MD Work Phone: [facility] 11-25-2023 10:58-0400 SaO2% (BldA) [Mass fraction] 94 % Alfredo Ureña MD Work Phone: [facility] 11-25-2023 10:58-0400 Systolic blood pressure 157 mm[Hg] Alfredo Ureña MD Work Phone: [facility] 10-07-2023 13:04-0500 Diastolic blood pressure 76 mm[Hg] Berny Reyes DPM Work Phone: [facility] 10-07-2023 13:04-0500 Systolic blood pressure 160 mm[Hg] Berny Reyes DPM Work Phone: [facility] 10-07-2023 12:56-0500 Body temperature 97.2 [degF] Berny Mauroer DPM Work Phone: [facility] 10-07-2023 12:56-0500 Heart rate 93 /min Berny Reyes DPM Work Phone: [facility] 10-07-2023 12:56-0500 SaO2% (BldA) [Mass fraction] 96 % Berny Mauroer DPM Work Phone: [facility] 08-09-2023 12:53-0500 Body height 172.7 cm Alfredo Ureña MD Work Phone: [facility] 08-09-2023 12:53-0500 Body temperature 97.59 [degF] Alfredo Ureña MD Work Phone: [facility] 08-09-2023 12:53-0500 Body weight 102.97 kg Alfredo Ureña MD Work Phone: [facility] 08-09-2023 12:53-0500 Diastolic blood pressure 84 mm[Hg] Alfredo Urñea MD Work Phone: [facility] 08-09-2023 12:53-0500 Heart rate 90 /min Alfredo Ureña MD Work Phone: [facility] 08-09-2023 12:53-0500 SaO2% (BldA) [Mass fraction] 98 % Alfredo Ureña MD Work Phone: [facility] 08-09-2023 12:53-0500 Systolic blood pressure 179 mm[Hg] Alfredo Ureña MD Work Phone: [facility] 07-27-2023 13:01-0500 Diastolic blood pressure 73 mm[Hg] [facility] Work Phone: [facility] 07-27-2023 13:01-0500 Systolic blood pressure 172 mm[Hg] [facility] Work Phone: [facility] 07-27-2023 12:57-0500 Body temperature 97.59 [degF] [facility] Work Phone: [facility] 07-27-2023 12:57-0500 Heart rate 93 /min [facility] Work Phone: [facility] 07-27-2023 12:57-0500 Respiratory rate 20 /min [facility] Work Phone: [facility] 07-27-2023 12:57-0500 SaO2% (BldA) [Mass fraction] 97 % [facility] Work Phone: [facility] 07-15-2023 08:44-0500 Body weight 98.7 kg Jeanie Post MD Work Phone: [facility] 06-29-2023 14:54-0400 Body temperature 96.91 [degF] [facility] Work Phone: [facility] 06-29-2023 14:54-0400 Diastolic blood pressure 80 mm[Hg] [facility] Work Phone: [facility] 06-29-2023 14:54-0400 Systolic blood pressure 162 mm[Hg] [facility] Work Phone: [facility] 06-29-2023 14:53-0400 Heart rate 98 /min [facility] Work Phone: [facility] 06-29-2023 14:53-0400 SaO2% (BldA) [Mass fraction] 97 % [facility] Work Phone: [facility] 06-17-2023 10:06-0400 Body weight 102.06 kg Ayan Aurin FINANCIAL REPORTING ANALYST.HEEL CURVER Work Phone: [facility] 06-17-2023 10:06-0400 Diastolic blood pressure 81 mm[Hg] Ayan Aurin FINANCIAL REPORTING ANALYST.HEEL CURVER Work Phone: [facility] 06-17-2023 10:06-0400 Heart rate 103 /min Ayan Aurin FINANCIAL REPORTING ANALYST.HEEL CURVER Work Phone: [facility] 06-17-2023 10:06-0400 SaO2% (BldA) [Mass fraction] 95 % Ayan Aurin FINANCIAL REPORTING ANALYST.HEEL CURVER Work Phone: [facility] 06-17-2023 10:06-0400 Systolic blood pressure 148 mm[Hg] Ayan Aurin FINANCIAL REPORTING ANALYST.HEEL CURVER Work Phone: [facility] 04-06-2023 15:21-0400 Body height 172.7 cm Shanel Newell FINANCIAL REPORTING ANALYST.HEEL CURVER Work Phone: [facility] 04-06-2023 15:21-0400 Body weight 98.88 kg Shanel Newell FINANCIAL REPORTING ANALYST.HEEL CURVER Work Phone: [facility] 04-06-2023 15:21-0400 Diastolic blood pressure 70 mm[Hg] Shanel Newell FINANCIAL REPORTING ANALYST.HEEL CURVER Work Phone: [facility] 04-06-2023 15:21-0400 Heart rate 69 /min Shanel Newell FINANCIAL REPORTING ANALYST.HEEL CURVER Work Phone: [facility] 04-06-2023 15:21-0400 SaO2% (BldA) [Mass fraction] 99 % Shanel Newell FINANCIAL REPORTING ANALYST.HEEL CURVER Work Phone: [facility] 04-06-2023 15:21-0400 Systolic blood pressure 128 mm[Hg] Shanel Newell FINANCIAL REPORTING ANALYST.HEEL CURVER Work Phone: [facility] 03-11-2023 08:21-0400 Diastolic blood pressure 65 mm[Hg] [facility] Work Phone: [facility] 03-11-2023 08:21-0400 Systolic blood pressure 129 mm[Hg] [facility] Work Phone: [facility] 03-11-2023 08:17-0400 Body temperature 97.39 [degF] [facility] Work Phone: [facility] 03-11-2023 08:17-0400 Heart rate 70 /min [facility] Work Phone: [facility] 03-11-2023 08:17-0400 SaO2% (BldA) [Mass fraction] 97 % [facility] Work Phone: [facility] 03-10-2023 08:19-0400 Body weight 98.43 kg Ayan Dugganin FINANCIAL REPORTING ANALYST.HEEL CURVER Work Phone: [facility] 03-10-2023 08:19-0400 Diastolic blood pressure 68 mm[Hg] Ayan Aurin FINANCIAL REPORTING ANALYST.HEEL CURVER Work Phone: [facility] 03-10-2023 08:19-0400 Heart rate 64 /min Ayan Aurin FINANCIAL REPORTING ANALYST.HEEL CURVER Work Phone: [facility] 03-10-2023 08:19-0400 SaO2% (BldA) [Mass fraction] 97 % Ayan Aurin FINANCIAL REPORTING ANALYST.HEEL CURVER Work Phone: [facility] 03-10-2023 08:19-0400 Systolic blood pressure 145 mm[Hg] Ayan Aurin FINANCIAL REPORTING ANALYST.HEEL CURVER Work Phone: [facility] 02-25-2023 08:31-0400 Body temperature 97.39 [degF] [facility] Work Phone: [facility] 02-25-2023 08:31-0400 Diastolic blood pressure 71 mm[Hg] [facility] Work Phone: [facility] 02-25-2023 08:31-0400 Heart rate 65 /min [facility] Work Phone: [facility] 02-25-2023 08:31-0400 SaO2% (BldA) [Mass fraction] 99 % [facility] Work Phone: [facility] 02-25-2023 08:31-0400 Systolic blood pressure 135 mm[Hg] [facility] Work Phone: [facility] 02-08-2023 15:04-0400 Body weight 97.07 kg Rodo Medrano FINANCIAL REPORTING ANALYST.HEEL CURVER Work Phone: [facility] 02-08-2023 15:04-0400 Diastolic blood pressure 72 mm[Hg] Rodo Medrano FINANCIAL REPORTING ANALYST.HEEL CURVER Work Phone: [facility] 02-08-2023 15:04-0400 Heart rate 107 /min Rodo Medrano FINANCIAL REPORTING ANALYST.HEEL CURVER Work Phone: [facility] 02-08-2023 15:04-0400 SaO2% (BldA) [Mass fraction] 99 % Rodo Medrano FINANCIAL REPORTING ANALYST.HEEL CURVER Work Phone: [facility] 02-08-2023 15:04-0400 Systolic blood pressure 144 mm[Hg] Rodo Mitchell VILLANUEVA.HEEL CURVER Work Phone: [facility] 02-08-2023 13:39-0400 Body height 172.7 cm Tati Ale PA- C Work Phone: [facility] 02-08-2023 13:39-0400 Body temperature 97.7 [degF] Tati [place] PA- C Work Phone: [facility] 02-08-2023 13:39-0400 Body weight 97.25 kg Tati [place] PA- C Work Phone: [facility] 02-08-2023 13:39-0400 Diastolic blood pressure 81 mm[Hg] Tati [place] PA-C Work Phone: [facility] 02-08-2023 13:39-0400 Heart rate 80 /min Tati [place] PA- C Work Phone: [facility] 02-08-2023 13:39-0400 SaO2% (BldA) [Mass fraction] 100 % Tati [place] PA-C Work Phone: [facility] 02-08-2023 13:39-0400 Systolic blood pressure 164 mm[Hg] Tati [place] PA-C Work Phone: [facility] 02-05-2023 08:22-0400 Body height 172.7 cm Eldon Gill DO Work Phone: [facility] 02-05-2023 08:22-0400 Body temperature 97.7 [degF] Eldon Gill DO Work Phone: [facility] 02-05-2023 08:22-0400 Body weight 98.88 kg Eldon Gill DO Work Phone: [facility] 02-05-2023 08:22-0400 Diastolic blood pressure 66 mm[Hg] Eldon Gill DO Work Phone: [facility] 02-05-2023 08:22-0400 Heart rate 68 /min Eldon Gill DO Work Phone: [facility] 02-05-2023 08:22-0400 Respiratory rate 18 /min Eldon Gill DO Work Phone: [facility] 02-05-2023 08:22-0400 SaO2% (BldA) [Mass fraction] 98 % Eldon Gill DO Work Phone: [facility] 02-05-2023 08:22-0400 Systolic blood pressure 132 mm[Hg] Eldon Gill DO Work Phone: [facility] 02-04-2023 08:07-0400 Body temperature 97.3 [degF] [facility] Work Phone: [facility] 02-04-2023 08:07-0400 Diastolic blood pressure 70 mm[Hg] [facility] Work Phone: [facility] 02-04-2023 08:07-0400 Heart rate 74 /min [facility] Work Phone: [facility] 02-04-2023 08:07-0400 SaO2% (BldA) [Mass fraction] 99 % [facility] Work Phone: [facility] 02-04-2023 08:07-0400 Systolic blood pressure 146 mm[Hg] [facility] Work Phone: [facility] 01-15-2023 09:08-0400 Diastolic blood pressure 73 mm[Hg] [facility] Work Phone: [facility] 01-15-2023 09:08-0400 Systolic blood pressure 170 mm[Hg] [facility] Work Phone: [facility] 01-15-2023 09:07-0400 Body temperature 97.7 [degF] [facility] Work Phone: [facility] 01-15-2023 09:07-0400 Heart rate 65 /min [facility] Work Phone: [facility] 01-15-2023 09:07-0400 SaO2% (BldA) [Mass fraction] 99 % [facility] Work Phone: [facility] 01-07-2023 08:21-0400 Diastolic blood pressure 79 mm[Hg] [facility] Work Phone: [facility] 01-07-2023 08:21-0400 Systolic blood pressure 163 mm[Hg] [facility] Work Phone: [facility] 01-07-2023 08:16-0400 Body temperature 97 [degF] [facility] Work Phone: [facility] 01-07-2023 08:16-0400 Heart rate 71 /min [facility] Work Phone: [facility] 01-07-2023 08:16-0400 SaO2% (BldA) [Mass fraction] 99 % [facility] Work Phone: [facility] 01-04-2023 08:50-0400 Body temperature 96.91 [degF] [facility] Work Phone: [facility] 01-04-2023 08:50-0400 Diastolic blood pressure 72 mm[Hg] [facility] Work Phone: [facility] 01-04-2023 08:50-0400 Heart rate 69 /min [facility] Work Phone: [facility] 01-04-2023 08:50-0400 Respiratory rate 20 /min [facility] Work Phone: [facility] 01-04-2023 08:50-0400 SaO2% (BldA) [Mass fraction] 92 % [facility] Work Phone: [facility] 01-04-2023 08:50-0400 Systolic blood pressure 133 mm[Hg] [facility] Work Phone: [facility] 12-31-2022 08:34-0400 Diastolic blood pressure 79 mm[Hg] [facility] Work Phone: [facility] 12-31-2022 08:34-0400 Systolic blood pressure 162 mm[Hg] [facility] Work Phone: [facility] 12-31-2022 08:33-0400 Body temperature 97.11 [degF] [facility] Work Phone: [facility] 12-31-2022 08:33-0400 Heart rate 74 /min [facility] Work Phone: [facility] 12-31-2022 08:33-0400 SaO2% (BldA) [Mass fraction] 98 % [facility] Work Phone: [facility] 12-24-2022 09:41-0400 Body weight 100.7 kg Ayan Aurin FINANCIAL REPORTING ANALYST.HEEL CURVER Work Phone: [facility] 12-24-2022 09:41-0400 Diastolic blood pressure 59 mm[Hg] Ayan Aurin FINANCIAL REPORTING ANALYST.HEEL CURVER Work Phone: [facility] 12-24-2022 09:41-0400 Heart rate 77 /min Ayan Aurin FINANCIAL REPORTING ANALYST.HEEL CURVER Work Phone: [facility] 12-24-2022 09:41-0400 SaO2% (BldA) [Mass fraction] 99 % Ayan Aurin FINANCIAL REPORTING ANALYST.HEEL CURVER Work Phone: [facility] 12-24-2022 09:41-0400 Systolic blood pressure 134 mm[Hg] Ayan Aurin FINANCIAL REPORTING ANALYST.HEEL CURVER Work Phone: [facility] 12-24-2022 08:40-0400 Diastolic blood pressure 73 mm[Hg] [facility] Work Phone: [facility] 12-24-2022 08:40-0400 Systolic blood pressure 144 mm[Hg] [facility] Work Phone: [facility] 12-24-2022 08:39-0400 Body temperature 97.59 [degF] [facility] Work Phone: [facility] 12-24-2022 08:39-0400 Heart rate 75 /min [facility] Work Phone: [facility] 12-24-2022 08:39-0400 SaO2% (BldA) [Mass fraction] 100 % [facility] Work Phone: [facility] 12-17-2022 09:18-0400 Diastolic blood pressure 72 mm[Hg] [facility] Work Phone: [facility] 12-17-2022 09:18-0400 Systolic blood pressure 158 mm[Hg] [facility] Work Phone: [facility] 12-17-2022 09:12-0400 Body temperature 97.11 [degF] [facility] Work Phone: [facility] 12-17-2022 09:12-0400 Heart rate 86 /min [facility] Work Phone: [facility] 12-17-2022 09:12-0400 Respiratory rate 20 /min [facility] Work Phone: [facility] 12-17-2022 09:12-0400 SaO2% (BldA) [Mass fraction] 99 % [facility] Work Phone: [facility] 12-14-2022 08:14-0400 Diastolic blood pressure 80 mm[Hg] [facility] Work Phone: [facility] 12-14-2022 08:14-0400 Systolic blood pressure 161 mm[Hg] [facility] Work Phone: [facility] 12-14-2022 08:13-0400 Body temperature 97 [degF] [facility] Work Phone: [facility] 12-14-2022 08:13-0400 Heart rate 78 /min [facility] Work Phone: [facility] 12-14-2022 08:13-0400 SaO2% (BldA) [Mass fraction] 99 % [facility] Work Phone: [facility] 12-10-2022 08:28-0400 Body temperature 97.39 [degF] [facility] Work Phone: [facility] 12-10-2022 08:28-0400 Diastolic blood pressure 71 mm[Hg] [facility] Work Phone: [facility] 12-10-2022 08:28-0400 Heart rate 72 /min [facility] Work Phone: [facility] 12-10-2022 08:28-0400 SaO2% (BldA) [Mass fraction] 99 % [facility] Work Phone: [facility] 12-10-2022 08:28-0400 Systolic blood pressure 148 mm[Hg] [facility] Work Phone: [facility] 12-07-2022 10:38-0400 Body temperature 97 [degF] [facility] Work Phone: [facility] 12-07-2022 10:38-0400 Diastolic blood pressure 68 mm[Hg] [facility] Work Phone: [facility] 12-07-2022 10:38-0400 Heart rate 72 /min [facility] Work Phone: [facility] 12-07-2022 10:38-0400 SaO2% (BldA) [Mass fraction] 98 % [facility] Work Phone: [facility] 12-07-2022 10:38-0400 Systolic blood pressure 135 mm[Hg] [facility] Work Phone: [facility] 12-03-2022 08:50-0400 Diastolic blood pressure 75 mm[Hg] [facility] Work Phone: [facility] 12-03-2022 08:50-0400 Systolic blood pressure 151 mm[Hg] [facility] Work Phone: [facility] 12-03-2022 08:42-0400 Body temperature 97.39 [degF] [facility] Work Phone: [facility] 12-03-2022 08:42-0400 Heart rate 75 /min [facility] Work Phone: [facility] 12-03-2022 08:42-0400 Respiratory rate 16 /min [facility] Work Phone: [facility] 12-03-2022 08:42-0400 SaO2% (BldA) [Mass fraction] 99 % [facility] Work Phone: [facility] 11-30-2022 09:12-0400 Diastolic blood pressure 75 mm[Hg] [facility] Work Phone: [facility] 11-30-2022 09:12-0400 Systolic blood pressure 146 mm[Hg] [facility] Work Phone: [facility] 11-30-2022 09:09-0400 Body temperature 96.8 [degF] [facility] Work Phone: [facility] 11-30-2022 09:09-0400 Heart rate 83 /min [facility] Work Phone: [facility] 11-30-2022 09:09-0400 SaO2% (BldA) [Mass fraction] 95 % [facility] Work Phone: [facility] 11-26-2022 10:41-0400 Diastolic blood pressure 80 mm[Hg] [facility] Work Phone: [facility] 11-26-2022 10:41-0400 Systolic blood pressure 150 mm[Hg] [facility] Work Phone: [facility] 11-26-2022 10:40-0400 Body temperature 97.3 [degF] [facility] Work Phone: [facility] 11-26-2022 10:40-0400 Heart rate 80 /min [facility] Work Phone: [facility] 11-26-2022 10:40-0400 SaO2% (BldA) [Mass fraction] 96 % [facility] Work Phone: [facility] 11-23-2022 09:36-0400 Diastolic blood pressure 80 mm[Hg] [facility] Work Phone: [facility] 11-23-2022 09:36-0400 Systolic blood pressure 139 mm[Hg] [facility] Work Phone: [facility] 11-23-2022 09:19-0400 Body temperature 97.39 [degF] [facility] Work Phone: [facility] 11-23-2022 09:19-0400 Heart rate 85 /min [facility] Work Phone: [facility] 11-23-2022 09:19-0400 SaO2% (BldA) [Mass fraction] 97 % [facility] Work Phone: [facility] 11-19-2022 08:26-0400 Diastolic blood pressure 76 mm[Hg] [facility] Work Phone: [facility] 11-19-2022 08:26-0400 Systolic blood pressure 145 mm[Hg] [facility] Work Phone: [facility] 11-19-2022 08:25-0400 Body temperature 97.39 [degF] [facility] Work Phone: [facility] 11-19-2022 08:25-0400 Heart rate 85 /min [facility] Work Phone: [facility] 11-19-2022 08:25-0400 SaO2% (BldA) [Mass fraction] 96 % [facility] Work Phone: [facility] 11-16-2022 15:24-0400 Diastolic blood pressure 73 mm[Hg] [facility] Work Phone: [facility] 11-16-2022 15:24-0400 Systolic blood pressure 142 mm[Hg] [facility] Work Phone: [facility] 11-16-2022 15:13-0400 Body temperature 97.39 [degF] [facility] Work Phone: [facility] 11-16-2022 15:13-0400 Heart rate 88 /min [facility] Work Phone: [facility] 11-16-2022 15:13-0400 SaO2% (BldA) [Mass fraction] 96 % [facility] Work Phone: [facility] 11-10-2022 08:39-0500 Diastolic blood pressure 70 mm[Hg] [facility] Work Phone: [facility] 11-10-2022 08:39-0500 Systolic blood pressure 144 mm[Hg] [facility] Work Phone: [facility] 11-10-2022 08:38-0500 Body temperature 97.5 [degF] [facility] Work Phone: [facility] 11-10-2022 08:38-0500 Heart rate 87 /min [facility] Work Phone: [facility] 11-10-2022 08:38-0500 SaO2% (BldA) [Mass fraction] 99 % [facility] Work Phone: [facility] 11-06-2022 08:43-0500 Diastolic blood pressure 83 mm[Hg] [facility] Work Phone: [facility] 11-06-2022 08:43-0500 Systolic blood pressure 151 mm[Hg] [facility] Work Phone: [facility] 11-06-2022 08:38-0500 Body temperature 97.81 [degF] [facility] Work Phone: [facility] 11-06-2022 08:38-0500 Heart rate 84 /min [facility] Work Phone: [facility] 11-06-2022 08:38-0500 Respiratory rate 16 /min [facility] Work Phone: [facility] 11-06-2022 08:38-0500 SaO2% (BldA) [Mass fraction] 98 % [facility] Work Phone: [facility] 09-26-2022 08:14-0500 Body temperature 97 [degF] Dennis Garcia MD Work Phone: [facility] 09-26-2022 08:14-0500 Body weight 101.15 kg Dennis Garcia MD Work Phone: [facility] 09-26-2022 08:14-0500 Diastolic blood pressure 60 mm[Hg] Dennis Garcia MD Work Phone: [facility] 09-26-2022 08:14-0500 Heart rate 83 /min Dennis Garcia MD Work Phone: [facility] 09-26-2022 08:14-0500 SaO2% (BldA) [Mass fraction] 97 % Dennis Garcia MD Work Phone: [facility] 09-26-2022 08:14-0500 Systolic blood pressure 118 mm[Hg] Dennis Garcia MD Work Phone: [facility] 09-23-2022 10:14-0500 Body height 172.7 cm Giovanni Garcia Work Phone: [facility] 09-23-2022 10:14-0500 Body weight 101.33 kg Giovanni Garcia Work Phone: [facility] 09-23-2022 10:14-0500 Diastolic blood pressure 67 mm[Hg] Giovanni Cerrato MD Work Phone: [facility] 09-23-2022 10:14-0500 Heart rate 72 /min Giovanni Garcia Work Phone: [facility] 09-23-2022 10:14-0500 Respiratory rate 16 /min Giovanni Garcia Work Phone: [facility] 09-23-2022 10:14-0500 SaO2% (BldA) [Mass fraction] 99 % Giovanni Cerrato MD Work Phone: [facility] 09-23-2022 10:14-0500 Systolic blood pressure 138 mm[Hg] Giovanni Cerrato MD Work Phone: [facility] 08-21-2022 12:54-0500 Body weight 102.06 kg Ayan Aurin FINANCIAL REPORTING ANALYST.HEEL CURVER Work Phone: [facility] 08-21-2022 12:54-0500 Diastolic blood pressure 72 mm[Hg] Ayan Aurin FINANCIAL REPORTING ANALYST.HEEL CURVER Work Phone: [facility] 08-21-2022 12:54-0500 Heart rate 76 /min Ayan Aurin FINANCIAL REPORTING ANALYST.HEEL CURVER Work Phone: [facility] 08-21-2022 12:54-0500 SaO2% (BldA) [Mass fraction] 98 % Ayan Aurin FINANCIAL REPORTING ANALYST.HEEL CURVER Work Phone: [facility] 08-21-2022 12:54-0500 Systolic blood pressure 140 mm[Hg] Ayan Aurin FINANCIAL REPORTING ANALYST.HEEL CURVER Work Phone: [facility] 08-20-2022 13:00-0500 Diastolic blood pressure 72 mm[Hg] Vincent Jairo DO Work Phone: [facility] 08-20-2022 13:00-0500 Systolic blood pressure 147 mm[Hg] Vincent Jairo DO Work Phone: [facility] 08-20-2022 12:58-0500 Body height 172.7 cm Vincent Jairo DO Work Phone: [facility] 08-20-2022 12:58-0500 Body temperature 97.81 [degF] Vincent Jairo DO Work Phone: [facility] 08-20-2022 12:58-0500 Body weight 101.15 kg Eldon Gill DO Work Phone: [facility] 08-20-2022 12:58-0500 Heart rate 88 /min Renettaent Jairo DO Work Phone: [facility] 08-20-2022 12:58-0500 Respiratory rate 18 /min Eldon Gill DO Work Phone: [facility] 08-20-2022 12:58-0500 SaO2% (BldA) [Mass fraction] 99 % Eldon Gill DO Work Phone: [facility] 06-03-2022 14:24-0400 Body height 172.7 cm Shanel Newell FINANCIAL REPORTING ANALYST.HEEL CURVER Work Phone: [facility] 06-03-2022 14:24-0400 Body weight 97.52 kg Shanel Newell FINANCIAL REPORTING ANALYST.HEEL CURVER Work Phone: [facility] 06-03-2022 14:24-0400 Diastolic blood pressure 70 mm[Hg] Shanel Newell FINANCIAL REPORTING ANALYST.HEEL CURVER Work Phone: [facility] 06-03-2022 14:24-0400 Heart rate 86 /min Shanel Newell FINANCIAL REPORTING ANALYST.HEEL CURVER Work Phone: [facility] 06-03-2022 14:24-0400 SaO2% (BldA) [Mass fraction] 100 % Shanel Newell FINANCIAL REPORTING ANALYST.HEEL CURVER Work Phone: [facility] 06-03-2022 14:24-0400 Systolic blood pressure 130 mm[Hg] Shanel Newell FINANCIAL REPORTING ANALYST.HEEL CURVER Work Phone: [facility] 05-30-2022 03:12-0400 Body height 172.7 cm Sleep [facility] Work Phone: [facility] 05-30-2022 03:12-0400 Body weight 98.9 kg Sleep Main Work Phone: [facility] 05-21-2022 11:53-0400 Body weight 98.88 kg Ayan Aurin FINANCIAL REPORTING ANALYST.HEEL CURVER Work Phone: [facility] 05-21-2022 11:53-0400 Diastolic blood pressure 58 mm[Hg] Ayan Aurin FINANCIAL REPORTING ANALYST.HEEL CURVER Work Phone: [facility] 05-21-2022 11:53-0400 Heart rate 71 /min Ayan Aurin FINANCIAL REPORTING ANALYST.HEEL CURVER Work Phone: [facility] 05-21-2022 11:53-0400 SaO2% (BldA) [Mass fraction] 99 % Ayan Olga Lidiavinod FINANCIAL REPORTING ANALYST.HEEL CURVER Work Phone: [facility] 05-21-2022 11:53-0400 Systolic blood pressure 129 mm[Hg] Ayan Wallis APRN.HEEL CURVER Work Phone: [facility] 05-14-2022 12:14-0400 Body height 172.7 cm Patricia Lauren CASTILLO [facility] 05-14-2022 [id number] Body weight 101.[address] [facility] 04-22-2022 13:21-0400 Body height 172.7 cm Olegario Sadler DO Work Phone: [facility] 04-22-2022 13:21-0400 Body weight 104.01 kg Olegario Sadler DO Work Phone: [facility] 04-22-2022 13:21-0400 Diastolic blood pressure 68 mm[Hg] Olegario Sadler DO Work Phone: [facility] 04-22-2022 13:21-0400 Heart rate 76 /min Olegario Sadler DO Work Phone: [facility] 04-22-2022 13:21-0400 SaO2% (BldA) [Mass fraction] 98 % Olegario Sadler DO Work Phone: [facility] 04-22-2022 13:21-0400 Systolic blood pressure 120 mm[Hg] Olegario Sadler DO Work Phone: [facility] 04-16-2022 13:23-0400 Body height 175.26 cm Alvina Sullivan Work Phone: VD-Zngidirbfi-Uze ma Work Phone: 04-16-2022 13:23-0400 Body mass index (BMI) [Ratio] 33.37 kg/m2 Alvina Sullivan Work Phone: YA-Rwedzvsycy-Hgr ma Work Phone: 04-16-2022 13:23-0400 Body surface area Derived from formula 2.18 m2 Alvina Sullivan Work Phone: RD-Armppezosb-Evg ma Work Phone: 04-16-2022 13:23-0400 Body weight 102.51 kg Alvina Sullivan Work Phone: HS-Jafjuhqbjl-Hhs ma Work Phone: 04-16-2022 13:23-0400 Diastolic blood pressure 60 mm[Hg] Alvina Sullivan Work Phone: ZP-Jxqqengcjq-Dje ma Work Phone: 04-16-2022 13:23-0400 Heart rate 73 /min Alvina Sullivan Work Phone: HO-Vkorhbctft-Div ma Work Phone: 04-16-2022 13:23-0400 Systolic blood pressure 122 mm[Hg] Alvina Sulilvan Work Phone: ZO-Wywbubjiwx-Els ma Work Phone: 03-24-2022 10:13-0400 Diastolic blood pressure 79 mm[Hg] [facility] Work Phone: [facility] 03-24-2022 10:13-0400 Systolic blood pressure 138 mm[Hg] [facility] Work Phone: [facility] 03-23-2022 14:19-0400 Diastolic blood pressure 87 mm[Hg] Giovanni Cerrato MD Work Phone: [facility] 03-23-2022 14:19-0400 Systolic blood pressure 156 mm[Hg] Giovanni Cerrato MD Work Phone: [facility] 03-23-2022 13:53-0400 Body weight 106.59 kg Giovanni Garcia Work Phone: [facility] 07-18-2022 13:53-0400 Heart rate 74 /min Giovanni Garcia Work Phone: [facility] 03-23-2022 13:53-0400 SaO2% (BldA) [Mass fraction] 97 % Giovanni Cerrato MD Work Phone: [facility] 03-05-2022 13:37-0400 Body height 175.26 cm Alvina Sullivan Work Phone: JJ-Ztomxrgvzw-Reg ma Work Phone: 03-05-2022 13:37-0400 Body mass index (BMI) [Ratio] 36.77 kg/m2 Alvina Ronquillort Work Phone: FR-Fsndgjcdps-Nmh ma Work Phone: 03-05-2022 13:37-0400 Body surface area Derived from formula 2.27 m2 Alvina Ronquillort Work Phone: TU-Anxrfheilz-Yik ma Work Phone: 03-05-2022 13:37-0400 Body weight 112.95 kg Alvina Ronquillort Work Phone: IK-Nwmmehazmr-Trn ma Work Phone: 03-05-2022 13:37-0400 Diastolic blood pressure 61 mm[Hg] Alvina Ronquillort Work Phone: UW-Nbvjcamous-Lyw ma Work Phone: 03-05-2022 13:37-0400 Heart rate 87 /min Anita Nate Work Phone: AN-Tehfzvxnkw-Bgd ma Work Phone: 03-05-2022 13:37-0400 Systolic blood pressure 147 mm[Hg] Alvina Sullivan Work Phone: KQ-Hrwetmkerq-Piy ma Work Phone: 02-23-2022 14:11-0400 Body temperature 97.7 [degF] [facility] Work Phone: [facility] 02-23-2022 14:11-0400 Diastolic blood pressure 77 mm[Hg] Nurse [facility] Work Phone: [facility] 02-23-2022 14:11-0400 Heart rate 107 /min [facility] Work Phone: [facility] 02-23-2022 14:11-0400 Respiratory rate 18 /min [facility] Work Phone: [facility] 02-23-2022 14:11-0400 SaO2% (BldA) [Mass fraction] 96 % [facility] Work Phone: [facility] 02-23-2022 14:11-0400 Systolic blood pressure 129 mm[Hg] [facility] Work Phone: [facility] 01-29-2022 15:45-0400 Body mass index (BMI) [Ratio] 36.03 kg/m2 Alvina Sullivan Work Phone: IZ-Compyqmkvu-Tdw ma Work Phone: 01-29-2022 15:45-0400 Body surface area Derived from formula 2.25 m2 Alvina Sullivan Work Phone: DX-Azecfzrupd-Ann ma Work Phone: 01-29-2022 15:45-0400 Body weight 110.68 kg Alvina Sullivan Work Phone: BK-Cmopjnewdk-Pvm ma Work Phone: 01-29-2022 15:45-0400 Diastolic blood pressure 80 mm[Hg] Alvina Sullivan Work Phone: NJ-Twuwixcioe-Zes ma Work Phone: 01-29-2022 15:45-0400 Heart rate 73 /min Alvina Sullivan Work Phone: UK-Kihsjeccys-Onl ma Work Phone: 01-29-2022 15:45-0400 Systolic blood pressure 132 mm[Hg] Alvina Sullivan Work Phone: ZZ-Gznikjrwfv-Wyf wi Work Phone: 01-26-2022 16:33-0400 Body mass index (BMI) [Ratio] 37.36 kg/m2 Alvina Sullivan Work Phone: [facility] Work Phone: 01-26-2022 16:33-0400 Body surface area Derived from formula 2.28 m2 Alvina Sullivan Work Phone: [facility] Work Phone: 01-26-2022 16:33-0400 Body temperature 98.8 [degF] Alvina Sullivan Work Phone: [facility] Work Phone: 01-26-2022 16:33-0400 Body weight 114.76 kg Alvina Sullivan Work Phone: [facility] Work Phone: 01-26-2022 16:33-0400 Diastolic blood pressure 80 mm[Hg] Alvina Sullivan Work Phone: [facility] Work Phone: 01-26-2022 16:33-0400 Systolic blood pressure 138 mm[Hg] Alvina Sullivan Work Phone: [facility] Work Phone: 01-13-2022 09:28-0400 Body temperature 97.9 [degF] [facility] Work Phone: [facility] 01-13-2022 09:28-0400 Diastolic blood pressure 57 mm[Hg] [facility] Work Phone: [facility] 01-13-2022 09:28-0400 Heart rate 74 /min [facility] Work Phone: [facility] 01-13-2022 09:28-0400 Respiratory rate 18 /min [facility] Work Phone: [facility] 01-13-2022 09:28-0400 SaO2% (BldA) [Mass fraction] 97 % [facility] Work Phone: [facility] 01-13-2022 09:28-0400 Systolic blood pressure 133 mm[Hg] [facility] Work Phone: [facility] 12-16-2021 09:35-0400 Body temperature 98.01 [degF] [facility] Work Phone: [facility] 12-16-2021 09:35-0400 Diastolic blood pressure 72 mm[Hg] [facility] Work Phone: [facility] 12-16-2021 09:35-0400 Heart rate 88 /min [facility] Work Phone: [facility] 12-16-2021 09:35-0400 SaO2% (BldA) [Mass fraction] 96 % [facility] Work Phone: [facility] 12-16-2021 09:35-0400 Systolic blood pressure 139 mm[Hg] [facility] Work Phone: [facility] 09-26-2021 15:10-0500 Body mass index (BMI) [Ratio] 36.03 kg/m2 Alvina Sullivan Work Phone: [facility] Work Phone: 09-26-2021 15:10-0500 Body surface area Derived from formula 2.25 m2 Alvina Sullivan Work Phone: [facility] Work Phone: 09-26-2021 15:10-0500 Body temperature 98.2 [degF] Alvina Sullivan Work Phone: [facility] Work Phone: 09-26-2021 15:10-0500 Body weight 110.68 kg Alvina Sullivan [facility] Phone: [facility] Work Phone: 09-26-2021 15:10-0500 Diastolic blood pressure 72 mm[Hg] Alvina Sullivan Work Phone: [facility] Work Phone: 09-26-2021 15:10-0500 Systolic blood pressure 124 mm[Hg] Alvina Sullivan Work Phone: [facility] Work Phone: Encounters Encounter Date Encounter Type Care Provider Facility Start: 02-12-2025 ambulatory HU PICKARD Facility:[facility] Start: 02-09-2025 End: 02-09-2025 Patient encounter procedure Hu Pickard DPM Work Phone: Plastic Surgery Comment on above: Ulcer of right foot with fat layer exposed (HCC) (Primary Dx) Start: 02-09-2025 End: 02-09-2025 ambulatory HU [facility] Comment on above: Wound Care Start: 02-08-2025 End: 02-08-2025 Patient encounter procedure [facility] Start: 02-08-2025 End: 02-08-2025 ambulatory HU PICKARD [facility] Comment on above: Wound Care Start: 02-07-2025 End: 02-07-2025 ambulatory [facility] Comment on above: Wound Care Start: 02-07-2025 End: 02-07-2025 Patient encounter procedure [facility] Start: 02-06-2025 End: 02-06-2025 Patient encounter procedure [facility] Start: 02-06-2025 End: 02-06-2025 ambulatory HU PICKARD [facility] Comment on above: Wound Care Start: 02-05-2025 End: 02-05-2025 Telephone encounter Dennis Garcia MD Work Phone: [facility] Comment on above: Received Outside Med ical Records ([facility] re: Diabetic Eye Exam 02/02/25) Start: 02-05-2025 End: 02-05-2025 ambulatory HU PICKARD Facility:[facility] Start: 02-02-2025 End: 02-02-2025 Patient encounter procedure Hu Pickard DPM Work Phone: Plastic Surgery Comment on above: Ulcer of right foot with fat layer exposed (HCC) (Primary Dx) Start: 02-02-2025 End: 02-02-2025 ambulatory HU PICKARD [facility] Comment on above: Wound Care Start: 02-01-2025 End: 02-01-2025 Patient encounter procedure [facility] Start: 02-01-2025 End: 02-01-2025 ambulatory HU PICKARD [facility] Comment on above: Wound Care Start: 01-31-2025 End: 01-31-2025 Refill Giovanni Cerrato MD Work Phone: Endocrinology Comment on above: Refill Request Wound Care Start: 01-30-2025 End: 01-30-2025 Patient encounter procedure Franky Barnes MD Work Phone: Plastic Surgery Comment on above: Ulcer of right foot with fat layer exposed (HCC) (Primary Dx); PVD (peripheral vascular disease); Other acute osteomyelitis, unspecified site (HCC); Controlled type 2 diabetes mellitus without complication, 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 (HCC); Right foot ulcer, 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); Venous stasis ulcer of right ankle limited to breakdown of skin, 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 varicose veins present (HCC); Wound infection Start: 01-30-2025 End: 01-30-2025 ambulatory Alvina Sullivan [facility] Comment on above: Wound Care Start: 01-30-2025 Registered Referred Donavon De La Paz MD [facility] Start: 01-29-2025 End: 01-30-2025 Refill Reyna Shrestha APRN.CNP Work Phone: Endocrinology Comment on above: Refill Request Start: 01-26-2025 End: 01-26-2025 Patient encounter procedure Hyperbaric [facility] Start: 01-26-2025 End: 01-26-2025 ambulatory [facility] Comment on above: Wound Care Start: 01-25-2025 End: 01-25-2025 Patient encounter procedure Hyperbaric [facility] Start: 01-25-2025 End: 01-25-2025 ambulatory [facility] Comment on above: Wound Care Start: 01-24-2025 End: 01-24-2025 Patient encounter procedure Hyperbaric [facility] Start: 01-24-2025 End: 01-24-2025 ambulatory [facility] Comment on above: Wound Care Start: 01-23-2025 End: 01-23-2025 Patient encounter procedure Hyperbaric [facility] Start: 01-23-2025 End: 01-23-2025 ambulatory [facility] Comment on above: Wound Care Start: 01-22-2025 End: 01-22-20[facility] Start: 01-22-2025 Registered Referred Donavon De La Paz MD [facility] Start: 01-19-2025 End: 01-22-2025 ambulatory HU PICKARD Facility:[facility] Start: 01-19-2025 End: 01-19-2025 ambulatory HU SALDIVARBIAK Facility:[facility] Start: 01-19-2025 End: 01-19-2025 Patient encounter procedure Hu Pickard DPGricel Work Phone: Plastic Surgery Comment on above: Ulcer of left foot w ith fat layer exposed (HCC) (Primary Dx); Ulcer of right foot with fat layer exposed (HCC); PVD (peripheral vascular disease); Other acute osteomyelitis, unspecified site (HCC); Controlled type 2 diabetes mellitus without complication, 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 (HCC); 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, with fat layer exposed (HCC) Start: 01-18-2025 End: 01-22-2025 Refill Ayan Wallis APRN.CNP Work Phone: Cardiology Comment on above: Refill Request Start: 01-17-2025 End: 01-17-2025 ambulatory HU PICKARD Facility:[facility] Start: 01-17-2025 End: 01-17-2025 ambulatory HU SALDIVARBIAK Facility:[facility] Start: 01-16-2025 End: 01-16-2025 ambulatory HU SALDIVARBIAK Facility:[facility] Start: 01-15-2025 End: 01-15-2025 Patient encounter procedure Hyperbaric [facility] Start: 01-15-2025 End: 01-15-[address] Alvina Sullivan MD Work Phone: [facility] Comment on above: Wound Care Start: 01-15-2025 End: 01-15-2025 Departed Referred Donavon De La Paz MD -[facility] Start: 01-15-2025 Registered Referred Donavoncandido De La Paz MD -[facility] Start: 01-15-2025 End: 01-15-2025 ambulatory Alvina Sullivan Facility:[facility] Start: 01-12-2025 End: 01-12-2025 Patient encounter procedure Hu Pickard DPM Work Phone: Plastic Surgery Comment on above: Ulcer of left foot w ith fat layer exposed (HCC) (Primary Dx) Start: 01-12-2025 End: 01-12-2025 ambulatory [facility] Comment on above: Wound Care Start: 01-11-2025 End: 01-11-2025 Patient encounter procedure Hyperbaric [facility] Start: 01-11-2025 End: 01-11-2025 ambulatory HU PICKARD [facility] Comment on above: Wound Care Start: 01-10-2025 End: 01-10-2025 Telephone encounter Giovanni Cerrato MD Work Phone: Endocrinology Comment on above: Office Notes (ADS) Start: 01-09-2025 End: 01-09-2025 ambulatory Hyperbaric [facility] Comment on above: Wound Care Start: 01-09-2025 End: 01-09-2025 Patient encounter procedure Hyperbaric [facility] Start: 01-09-2025 End: 01-09-2025 Departed Referred Donavon De La Paz MD [facility] Start: 01-09-2025 Registered Referred Donavoncandido De La Pza MD [facility] Start: 01-08-2025 End: 01-09-2025 ambulatory Alvina Sullivan [facility] Comment on above: Wound Care Start: 01-08-2025 End: 01-08-2025 Patient encounter procedure Hyperbaric [facility] Start: 01-08-2025 Registered Referred Donavoncandido De La Paz MD [facility] Start: 01-08-2025 End: 01-08-2025 ambulatory Alvina Sullivan Facility:[facility] Start: 01-05-2025 End: 01-05-2025 Patient encounter procedure Hyperbaric [facility] Start: 01-05-2025 End: 01-05-2025 ambulatory HU PICKARD [facility] Comment on above: Wound Care Start: 01-04-2025 End: 01-04-2025 ambulatory HU PICKARD [facility] Comment on above: Wound Care Start: 01-04-2025 End: 01-04-2025 Patient encounter procedure uH Pickard DPM Work Phone: Plastic Surgery Comment on above: Ulcer of left foot w ith fat layer exposed (HCC) (Primary Dx) Start: 01-03-2025 End: 01-03-2025 Patient encounter procedure Hyperbaric Rodriguez [facility] Start: 01-03-2025 End: 01-03-2025 ambulatory HU SALDIVARBIAK [facility] Comment on above: Wound Care Start: 01-02-2025 End: 01-02-2025 Patient encounter procedure Hyperbaric [facility] Start: 01-02-2025 End: 01-02-2025 Telephone encounter Hu Pickard DPM Work Phone: Plastic Surgery Comment on above: Wound Care Start: 01-02-2025 End: 01-02-2025 ambulatory HU PICKARD [facility] Comment on above: Wound Care Start: 01-01-2025 End: 01-01-2025 Patient encounter procedure Hyperbaric [facility] Start: 01-01-2025 End: 01-01-2025 ambulatory HU PICKARD [facility] Comment on above: Wound Care Start: 01-01-2025 End: 01-01-2025 Departed Referred Donavon De La Paz MD -[facility] Start: 01-01-2025 Registered Referred Donavon De La Paz MD -[facility] Start: 01-01-2025 End: 01-01-2025 ambulatory Anita Nate Facility:[facility] Start: 12-29-2024 End: 12-29-2024 Patient encounter procedure Hyperbaric [facility] Start: 12-29-2024 End: 12-29-2024 ambulatory HU PICKARD [facility] Comment on above: Wound Care Start: 12-28-2024 End: 12-28-2024 Patient encounter procedure Hyperbaric [facility] Start: 12-28-2024 End: 12-28-2024 ambulatory HU PICKARD [facility] Comment on above: Wound Care Start: 12-27-2024 End: 12-27-2024 Patient encounter procedure Hyperbaric [facility] Start: 12-27-2024 End: 12-27-2024 ambulatory HU PICKARD [facility] Comment on above: Wound Care Start: 12-27-2024 End: 12-27-2024 Departed Referred Donavon De La Paz MD -[facility] Start: 12-27-2024 Registered Referred Donavon De La Paz MD -[facility] Start: 12-26-2024 End: 12-27-2024 ambulatory [facility] Facility:[facility] Start: 12-25-2024 End: 12-25-[address] 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 [E11.52] Start: 12-22-2024 End: 12-22-2024 ambulatory SELF Facility:[facility] Start: 12-21-2024 End: 12-21-2024 ambulatory HU NEERAJ Facility:[facility] Start: 12-21-2024 End: 12-21-2024 Patient encounter procedure Hu Pickard DPM Work Phone: Plastic Surgery Comment on above: Ulcer of right foot with fat layer exposed (HCC) (Primary Dx) Start: 12-21-2024 End: 12-21-2024 ambulatory HU NEERAJ Facility:[facility] Start: 12-20-2024 End: 12-20-2024 ambulatory HU NEERAJ Facility:[facility] Start: 12-19-2024 End: 12-19-2024 Patient encounter procedure Franky Barnes MD Work Phone: Plastic Surgery Comment on above: Right foot ulcer, li mited to breakdown of skin (HCC) (Primary Dx); Wound infection; PVD (peripheral vascular disease); Other acute osteomyelitis, unspecified site (HCC); Non-prs chr ulcer oth prt r low leg limited to brkdwn skin (HCC); Venous stasis ulcer of right ankle limited to breakdown of skin, 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 varicose veins present (HCC); Ulcer of right foot with fat layer exposed (HCC); Controlled type 2 diabetes mellitus without complication, 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 retirement insulin use (HCC); 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, with fat layer exposed (HCC); Amputation of right great toe; Traumatic amputation of second toe of right foot, subsequent encounter (HCC) Start: 12-19-2024 End: 01-30-2025 Telephone encounter Franky Barnes MD Work Phone: [facility] Comment on above: [employer] (FO R IDC USE ONLY) Start: 12-19-2024 End: 12-19-2024 ambulatory [facility] Start: 12-18-2024 End: 12-18-2024 Patient encounter procedure Hyperbaric [facility] Start: 12-18-2024 End: 12-18-2024 ambulatory [facility] Comment on above: Wound Care Start: 12-18-2024 End: 12-18-2024 Telephone encounter Nurse Clinical Work Phone: Plastic Surgery Comment on above: Orders Start: 12-15-2024 End: 12-15-2024 Telephone encounter Marylou Mcclellan APRN.HEEL CURVER Work Phone: Pre Anesthesia Comment on above: Preparations For Keny halina Start: 12-15-2024 End: 12-15-2024 [facility] Start: 12-14-2024 Encounter for other preprocedural examination [facility] Start: 12-14-2024 End: 12-14-2024 Patient encounter procedure Ayan Wallis APRN.HEEL CURVER Work Phone: Cardiology Comment on above: Chronic heart failur e with preserved ejection fraction (HCC) (Primary Dx); Primary hypertension; Mixed hyperlipidemia Start: 12-14-2024 End: 12-14-2024 ambulatory MARYLOU MCCLELLAN [facility] Comment on above: Wound Care Start: 12-14-2024 End: 12-14-2024 Subsequent hospital visit by physician [facility] Work Phone: Cardiology Lab Comment on above: Left ventricular sys tolic dysfunction [I51.89] Start: 12-13-2024 End: 12-13-2024 Patient encounter procedure Hyperbaric [facility] Start: 12-13-2024 End: 12-13-2024 ambulatory HU [facility] Comment on above: Wound Care Start: 12-12-2024 End: 12-12-2024 Patient encounter procedure Hyperbaric [facility] Start: 12-12-2024 End: 12-12-2024 ambulatory HU [facility] Comment on above: Wound Care Start: 12-11-2024 End: 12-11-2024 Patient encounter procedure Hyperbaric [facility] Start: 12-11-2024 End: 12-11-2024 ambulatory HU [facility] Comment on above: Wound Care Start: 12-08-2024 End: 12-08-2024 Telephone encounter Cherelle Rice PA-C Work Phone: [place] [facility] Adult Start: 12-08-2024 End: 12-08-2024 Patient encounter procedure Hu Pickard DPM Work Phone: Plastic Surgery Comment on above: Right foot ulcer, li mited to breakdown of skin (HCC) (Primary Dx) Start: 12-08-2024 End: 12-08-2024 ambulatory HU [facility] Comment on above: Wound Care Start: 12-07-2024 End: 12-07-2024 Patient encounter procedure Hyperbaric [facility] Start: 12-07-2024 End: 12-07-2024 ambulatory HU [facility] Comment on above: Wound Care Start: 12-06-2024 End: 12-06-2024 Patient encounter procedure Hyperbaric [facility] Start: 12-06-2024 End: 12-06-2024 ambulatory HU [facility] Comment on above: Wound Care Start: 12-05-2024 End: 12-05-2024 Patient encounter procedure Hyperbaric [facility] Start: 12-05-2024 End: 02-04-2025 Follow-up encounter Shanel Newell APRN.HEEL CURVER Work Phone: [place] Provider Adult Start: 12-05-2024 End: 12-05-2024 ambulatory HU [facility] Comment on above: Wound Care Start: 12-04-2024 End: 12-04-2024 Patient encounter procedure Hyperbaric Michael Piercena [facility] Start: 12-04-2024 End: 12-04-2024 ambulatory HU [facility] Comment on above: Wound Care Start: 12-01-2024 End: 12-01-2024 Patient encounter procedure Hu Pickard DPM Work Phone: Plastic Surgery Comment on above: Right foot ulcer, li mited to breakdown of skin (HCC) (Primary Dx) Start: 12-01-2024 End: 12-01-2024 ambulatory HU PICKARD [facility] Comment on above: Wound Care Start: 11-30-2024 End: 11-30-2024 Patient encounter procedure Hyperbaric [facility] Start: 11-30-2024 End: 11-30-2024 Telephone encounter Lauren Carmona LPN Pre Anesthesia Start: 11-30-2024 End: 11-30-2024 Admission to establishment [place] [id number] Work Phone: Pre Anesthesia Start: 11-30-2024 End: 11-30-2024 Anesthesia consultation [facility] Work Phone: Pre Anesthesia Comment on above: Pre-op evaluation (P rimary Dx); Depression, unspecified depression type; NELLY (obstructive sleep apnea); Mixed hyperlipidemia; Primary hypertension; 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, with long-term current use of insulin (HCC); Chronic heart failure with preserved ejection fraction (HCC); BMI 29.0-29.9,adult; History of TIA (transient ischemic attack) Start: 11-30-2024 End: 11-30-2024 Preprocedural examination done Pac 3 Work Phone: [facility] Work Phone: Start: 11-30-2024 End: 12-01-2024 ambulatory HU PICKARD [facility] Comment on above: Wound Care Start: 11-29-2024 End: 11-30-2024 ambulatory HU PICKARD [facility] Comment on above: Wound Care Start: 11-29-2024 End: 11-29-2024 Patient encounter procedure Hyperbaric [facility] Start: 11-28-2024 End: 11-28-2024 Patient encounter procedure Hyperbaric [facility] Start: 11-28-2024 End: 11-28-2024 ambulatory HU PICKARD [facility] Comment on above: Wound Care Start: 11-28-2024 End: 11-28-2024 Telephone encounter Hu Neeraj DPM Work Phone: Plastic Surgery Start: 11-27-2024 End: 11-28-2024 ambulatory Giovanni Cerrato MD Work Phone: [facility] Comment on above: Anmol ochoa Wound [facility] Start: 11-27-2024 End: 11-27-2024 Patient encounter procedure Hu Pickard DPM Work Phone: Plastic Surgery Comment on above: Wound infection (Yuni yovani Dx) Start: 11-24-2024 End: 11-24-2024 Patient encounter procedure Hu Pickard DPM Work Phone: Plastic Surgery Comment on above: Right foot ulcer, li mited to breakdown of skin (HCC) (Primary Dx) Start: 11-24-2024 End: 11-24-2024 ambulatory [facility] Comment on above: Wound Care Start: 11-23-2024 End: 11-23-2024 Patient encounter procedure Hyperbaric [facility] Start: 11-23-2024 End: 11-23-2024 ambulatory HU PICKARD [facility] Comment on above: Wound Care Start: 11-22-2024 End: 11-22-2024 Patient encounter procedure Hyperbaric [facility] Start: 11-22-2024 End: 11-22-2024 ambulatory HU [facility] Comment on above: Wound Care Start: 11-21-2024 End: 11-21-2024 Patient encounter procedure Hyperbaric [facility] Start: 11-21-2024 End: 11-21-2024 ambulatory HU [facility] Comment on above: Wound Care Start: 11-21-2024 End: 11-22-2024 Telephone encounter Shanel Newell APRN.CNP Work Phone: Cardiology Comment on above: home blood pressure log ([facility]) Start: 11-20-2024 End: 11-20-2024 Patient encounter procedure Hyperbaric [facility] Start: 11-20-2024 End: 11-20-2024 ambulatory [facility] Comment on above: Wound Care Start: 11-20-2024 End: 11-20-2024 Telephone encounter Shanel Newell APRN.CNP Work Phone: [place] [employer] Start: 11-17-2024 End: 11-17-2024 Patient encounter procedure Shanel Newell APRN.CNP Work Phone: Cardiology Comment on above: Regional wall motion abnormality of heart (Primary Dx); Left ventricular systolic dysfunction; Mixed hyperlipidemia; Chronic heart failure with preserved ejection fraction (HCC); Primary hypertension; NELLY (obstructive sleep apnea); Valvular heart disease; Pulmonary hypertension (HCC) Start: 11-17-2024 End: 11-17-2024 E-mail encounter from caregiver Shanel Newell APRN.CNP Work Phone: Cardiology Start: 11-17-2024 End: 11-17-2024 Patient encounter procedure Hu Pickard DPM Work Phone: Plastic Surgery Comment on above: Right foot ulcer, li mited to breakdown of skin (HCC) (Primary Dx) Start: 11-17-2024 End: 11-17-2024 ambulatory Shanel Newell APRN.CNP Work Phone: Cardiology Comment on above: Update Wound Care Start: 11-16-2024 End: 11-16-2024 Patient encounter procedure Hyperbaric [facility] Start: 11-16-2024 End: 11-16-2024 ambulatory HU [facility] Comment on above: Wound Care Start: 11-15-2024 End: 11-15-2024 Patient encounter procedure Hyperbaric Michael [facility] Start: 11-15-2024 End: 11-15-2024 ambulatory HU [facility] Comment on above: Wound Care Start: 11-14-2024 End: 11-14-2024 Patient encounter procedure Hyperbaric Michael [facility] Start: 11-14-2024 End: 11-14-2024 ambulatory HU [facility] Comment on above: Wound Care Start: 11-13-2024 End: 11-13-2024 Patient encounter procedure Hyperbaric Michael [facility] Start: 11-13-2024 End: 11-13-2024 ambulatory [facility] Comment on above: Wound Care Start: 11-10-2024 End: 11-10-2024 Patient encounter procedure Hu Pickard DPM Work Phone: Plastic Surgery Comment on above: Right foot ulcer, li mited to breakdown of skin (HCC) (Primary Dx) Start: 11-10-2024 End: 11-10-2024 ambulatory HU PICKARD Facility:[facility] Start: 11-06-2024 End: 11-06-[address] Alvina Sullivan MD Work Phone: [facility] Work Phone: Start: 11-06-2024 End: 11-06-2024 Departed Referred Donavon De La Paz MD -[facility] Start: 11-06-2024 Registered Referred Donavon De La Paz MD -[facility] Start: 11-06-2024 End: 11-06-2024 ambulatory Alvina Sullivan Facility:[facility] Start: 11-03-2024 End: 11-03-[address] Alvina Sullivan MD Work Phone: [facility] Work Phone: Start: 11-03-2024 End: 11-03-2024 Departed Referred Donavon De La Paz MD -[facility] Start: 11-03-2024 End: 11-03-2024 ambulatory [facility] Facility:[facility] Start: 10-30-2024 ambulatory [facility] ty:[facility] Start: 10-30-2024 Registered Referred Donavon De La Paz MD [facility] Start: 10-27-2024 End: 10-27-2024 Patient encounter procedure Hu Pickard DPM Work Phone: Plastic Surgery Comment on above: Right foot ulcer, li mited to breakdown of skin (HCC) (Primary Dx) Start: 10-27-2024 End: 10-27-2024 ambulatory HU SALDIVARBIAK Facility:[facility] Start: 10-26-2024 ambulatory [facility] ty:[facility] Start: 10-26-2024 Registered Referred Donavoncandido De La Paz MD [facility] Start: 10-25-2024 End: 10-25-2024 ambulatory GIOVANNI CERRATO Facility:[facility] Start: 10-25-2024 End: 10-25-2024 Patient encounter procedure Giovanni Cerrato MD Work Phone: Endocrinology Comment on above: Type 2 diabetes josselyn itus with proliferative retinopathy, with long-term current use of insulin, macular edema presence unspecified, unspecified laterality, unspecified proliferative retinopathy* (HCC) (Primary Dx); Pernicious anemia; Primary hypertension; Mixed hyperlipidemia; Obesity, Class I, BMI 30-34.9 Start: 10-13-2024 End: 10-13-2024 Patient encounter procedure Hu Pickard DPM Work Phone: Plastic Surgery Comment on above: Non-prs chr ulcer ot h prt r low leg limited to brkdwn skin (HCC) (Primary Dx) Start: 10-13-2024 End: 10-13-2024 ambulatory HU PICKARD Facility:[facility] Start: 10-12-2024 End: 10-16-2024 Telephone encounter Hayder Cooley MD Work Phone: [facility] Orthopedics [facility] Comment on above: Other (Last OV notes ) Start: 10-09-2024 End: 10-09-2024 Office outpatient new 45 minutes Hayder Cooley MD Work Phone: [facility] Comment on above: Leg wound, left, ini tial encounter (Primary Dx); Leg wound, right, initial encounter Start: 10-09-2024 End: 10-09-2024 [facility] Start: 10-04-2024 End: 10-19-2024 Ophthalmic examination and evaluation Eldon Gill DO Work Phone: [facility] Work Phone: Start: 10-04-2024 End: 10-19-2024 Patient encounter procedure Eldon Gill DO Work Phone: [facility] Comment on above: Routine eye exam (Pr imary Dx) Start: 10-03-2024 End: 10-03-2024 Telephone encounter Hayder Cooley MD Work Phone: [facility] Orthopedics and [facility] Start: 10-01-2024 End: 10-01-2024 Emergency department patient visit ELDON GILL Facility:[facility] Start: 09-29-2024 End: 10-02-2024 ambulatory Rodo Medrano APRN.HEEL CURVER Work Phone: Neurology Comment on above: Cpap Start: 09-26-2024 End: 10-27-2024 ambulatory Eldon Gill DO Work Phone: [facility] Start: 09-11-2024 End: 09-11-2024 Telephone encounter Osito Obrien RN Cardiology Comment on above: Booth Usher - O ther (CHF) Start: 09-07-2024 ambulatory Alvina Edward Natelaura Valle ty:[facility] Start: 09-07-2024 Registered Referred Donavon De La Paz MD [facility] Start: 09-04-2024 End: 09-04-2024 Telephone encounter Osito Obrien RN Cardiology Comment on above: Booth Usher - O ther (CHF) Start: 09-04-2024 ambulatory [facility] ty:[facility] Start: 09-04-2024 Registered Referred Donavon De La Paz MD [facility] Start: 09-01-2024 ambulatory [facility] ty:[facility] Start: 09-01-2024 Registered Referred Donavon De La Paz MD [facility] Start: 08-31-2024 End: 08-31-2024 E-mail encounter from caregiver Olegario Haque Viktoriya DO Work Phone: Cardiology Start: 08-31-2024 End: 08-31-2024 Patient encounter procedure Olegario Garland Sadler DO Work Phone: Cardiology Comment on above: 09/12 Appointment Start: 08-28-2024 End: 08-28-2024 Documentation procedure Hu Hawley PT [facility] Start: 08-25-2024 ambulatory [facility] ty:[facility] Start: 08-25-2024 Registered Referred Donavon De La Paz MD [facility] Start: 08-17-2024 End: 08-24-2024 Evaluation and management of inpatient ELDON JAIRO Facility:[facility] Start: 08-17-2024 End: 08-17-2024 Patient encounter procedure Berny Reyes DPM Work Phone: Plastic Surgery Comment on above: Non-prs chr ulcer ot h prt r low leg limited to brkdwn skin (HCC) (Primary Dx) Start: 08-17-2024 End: 08-17-2024 ambulatory BERNY REYES Facility:[facility] Start: 08-09-2024 End: 08-09-2024 Telephone encounter Osito Obrien RN Cardiology Comment on above: Booth Usher - O ther (CHF) Start: 08-07-2024 End: 08-07-2024 Telephone encounter Osito Obrien RN Cardiology Comment on above: Booth Usher - O ther (CHF) Start: 07-26-2024 End: 08-02-2024 Evaluation and management of inpatient ELDON GILL Facility:[facility] Start: 07-26-2024 End: 07-26-2024 ambulatory BERNY REYES Facility:[facility] Start: 07-26-2024 End: 07-26-2024 Patient encounter procedure Berny Reyes DPM Work Phone: Plastic Surgery Comment on above: Wound infection (Yuni yovani Dx) Start: 07-25-2024 End: 07-28-2024 ambulatory Eldon Gill DO Work Phone: Internal Medicine [place] [id number] Start: 07-20-2024 End: 07-21-2024 Refill Giovanni Cerrato MD Work Phone: Endocrinology Comment on above: Refill Request Start: 07-20-2024 End: 07-20-2024 Telephone encounter Nurse Work Phone: Plastic Surgery Comment on above: Returning Patient's Call Start: 07-14-2024 End: 07-14-2024 Telephone encounter Ayan Wallis APRN.HEEL CURVER Work Phone: Cardiology Comment on above: Patient Update Start: 07-11-2024 End: 07-11-2024 Patient encounter procedure Ayan Wallis APRN.HEEL CURVER Work Phone: Cardiology Comment on above: Chronic heart failur e with preserved ejection fraction (HCC) (Primary Dx); Primary hypertension; Mixed hyperlipidemia Start: 07-11-2024 End: 07-11-2024 ambulatory AYAN WALLIS Facility:[facility] Start: 07-07-2024 End: 07-07-2024 Nursing evaluation of patient and report Nurse Brooklynn [facility] Work Phone: Family Medicine [place] Comment on above: B12 deficiency (Prim narciso Dx) Start: 07-07-2024 End: 07-07-2024 [facility] Start: 07-07-2024 End: 07-07-2024 Patient encounter procedure Ayan Wallis APRN.HEEL CURVER Work Phone: Cardiology Comment on above: Chronic heart failur e with preserved ejection fraction (HCC) (Primary Dx); Primary hypertension; Mixed hyperlipidemia Start: 07-06-2024 End: 07-06-2024 Telephone encounter Ayan Wallis APRN.HEEL CURVER Work Phone: Cardiology Comment on above: Appointment Start: 07-05-2024 End: 07-05-2024 ambulatory GIOVANNI LINKGLORIA Facility:[facility] Start: 07-05-2024 End: 07-05-2024 Patient encounter procedure Berny Reyes DPM Work Phone: Plastic Surgery Comment on above: Right foot ulcer, li mited to breakdown of skin (HCC) (Primary Dx) Start: 07-05-2024 End: 07-05-2024 ambulatory BERNY REYES Facility:[facility] Start: 06-30-2024 End: 06-30-2024 Orders Only Ayan Wallis APRN.HEEL CURVER Work Phone: Cardiology Comment on above: Chronic heart failur e with preserved ejection fraction (HCC) (Primary Dx) Patient Update Start: 06-22-2024 End: 06-22-2024 Patient encounter procedure Berny Reyes DPM Work Phone: Plastic Surgery Comment on above: Venous stasis ulcer of right ankle limited to breakdown of skin, 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 varicose veins present (HCC) (Primary Dx) Start: 06-22-2024 End: 06-22-2024 ambulatory BERNY REYES Facility:[facility] Start: 06-20-2024 End: 06-20-2024 ambulatory Hamlet Garay MD Work Phone: [facility] Comment on above: OAB (overactive blad marina) (Primary Dx) Start: 06-13-2024 End: 06-13-2024 Follow-up encounter Hamlet Garay MD Work Phone: [facility] Comment on above: OAB (overactive blad marina) (Primary Dx) Start: 06-13-2024 End: 06-13-2024 ambulatory HAMLET GARAY [facility] Start: 06-09-2024 End: 06-09-2024 Nursing evaluation of patient and report Nurse Brooklynn [facility] Work Phone: Family Medicine [place] Comment on above: Vitamin B 12 deficie ncy (Primary Dx) Start: 06-09-2024 End: 06-09-2024 Patient encounter procedure Ayan Alejandro HEEL CURVER Work Phone: Cardiology Comment on above: Chronic heart failur e with preserved ejection fraction (HCC) (Primary Dx); Primary hypertension; Mixed hyperlipidemia Start: 06-09-2024 End: 06-09-2024 ambulatory [facility] Facility:[facility] Start: 06-08-2024 End: 06-08-2024 Follow-up encounter Hamlet Garay MD Work Phone: [facility] Comment on above: OAB (overactive blad marina) (Primary Dx) Start: 06-08-2024 End: 06-08-2024 ambulatory [facility] Start: 06-07-2024 End: 06-07-2024 Patient encounter procedure Berny Reyes DPM Work Phone: Plastic Surgery Comment on above: Right foot ulcer, li mited to breakdown of skin (HCC) (Primary Dx) Start: 06-07-2024 End: 06-07-2024 ambulatory BERNY REYES Facility:[facility] Start: 05-30-2024 End: 05-30-2024 Follow-up encounter Hamlet Garay MD Work Phone: [facility] Comment on above: OAB (overactive blad marina) (Primary Dx) Start: 05-30-2024 End: 05-30-2024 ambulatory [facility] Start: 05-25-2024 End: 05-25-2024 Patient encounter procedure Alfredo Ureña MD Work Phone: [facility] Start: 05-25-2024 End: 05-25-2024 ambulatory Alfredo Ureña MD Work Phone: [facility] Comment on above: Endometrial cancer ( HCC) (Primary Dx); Vulvar dermatitis; Mixed stress and urge urinary incontinence Start: 05-24-2024 End: 05-24-2024 Patient encounter procedure Berny Reyes DPGricel Work Phone: Plastic Surgery Comment on above: Right foot ulcer, li mited to breakdown of skin (HCC) (Primary Dx) Start: 05-24-2024 End: 05-24-2024 [facility] Start: 05-23-2024 End: 05-23-2024 ambulatory Hamlet Garay MD Work Phone: [facility] Comment on above: OAB (overactive blad marina) Start: 05-11-2024 End: 08-10-2024 Transcribe Orders Hamlet Garay MD Work Phone: [facility] Central Scheduling Comment on above: OAB (overactive blad marina) (Primary Dx) Start: 05-10-2024 End: 05-10-2024 Patient encounter procedure Berny Reyes DPM Work Phone: Plastic Surgery Comment on above: Non-prs chr ulcer ot h prt r low leg limited to brkdwn skin (HCC) (Primary Dx) Start: 05-10-2024 End: 05-10-2024 ambulatory BERNY ERIC Facility:[facility] Start: 05-09-2024 End: 05-09-2024 ambulatory ELDON GILL Facility:[facility] Start: 05-09-2024 End: 05-09-2024 Nursing evaluation of patient and report [facility] Work Phone: [facility] Comment on above: B12 deficiency (Prim narciso Dx) Start: 05-04-2024 End: 05-04-2024 Telephone encounter Eldon Gill DO Work Phone: [facility] Start: 04-26-2024 End: 04-26-2024 ambulatory ELDON GILL Facility:[facility] Start: 04-26-2024 End: 04-26-2024 Patient encounter procedure Hamlet Garay MD Work Phone: Urogynecology Comment on above: OAB (overactive blad marina) (Primary Dx); Mixed stress and urge urinary incontinence; Urge incontinence; Acute vaginitis Ulcer of right foot with fat layer exposed (HCC) (Primary Dx) Start: 04-26-2024 End: 04-26-2024 [facility] Start: 04-24-2024 End: 04-26-2024 Telephone encounter Eldon Gill DO Work Phone: [facility] Comment on above: progress notes Start: 04-17-2024 End: 04-17-2024 ambulatory GIOVANNI CERRATO Facility:[facility] Start: 04-17-2024 End: 04-17-2024 Patient encounter procedure Giovanni Cerrato MD Work Phone: Endocrinology Comment on above: 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, with long-term current use of insulin (HCC) (Primary Dx); Mixed hyperlipidemia; Primary hypertension; Albuminuria; Obesity, Class I, BMI 30-34.9; Ulcers of both lower extremities, 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) Start: 04-12-2024 End: 04-12-2024 Patient encounter procedure Berny Reyes DPM Work Phone: Plastic Surgery Comment on above: Ulcer of right foot with fat layer exposed (HCC) (Primary Dx) Start: 04-12-2024 End: 04-12-[facility] Start: 04-06-2024 End: 04-06-2024 ambulatory ELDON GILL Facility:[facility] Start: 04-05-2024 End: 04-05-2024 ambulatory [facility] Facility:[facility] Start: 03-31-2024 Telephone encounter Eldon milian DO Work Phone: [facility] Comment on above: Orders (PT evaluatio n report) Start: 03-30-2024 Telephone encounter Eldon milian DO Work Phone: [facility] Comment on above: Patient Update Start: 03-29-2024 End: 03-29-2024 Patient encounter procedure Berny Reyes DPM Work Phone: Plastic Surgery Comment on above: Ulcer of right foot with fat layer exposed (HCC) (Primary Dx) Start: 03-29-2024 End: 03-29-2024 ambulatory BERNY REYES Facility:[facility] Start: 03-22-2024 Telephone encounter Eldon Hopper charlieindu DO Work Phone: Internal Medicine [place] Comment on above: Diabetic Eye Exam ( [facility] ) Start: 03-20-2024 Telephone encounter Eldon Hopper rukhsana DO Work Phone: Family [facility] Comment on above: Orders (Physical The rapy Order Balance/Welling FAX [phone]) Start: 03-16-2024 Refill Giovanni philip MD Work Phone: Endocrinology Comment on above: Refill Request Start: 03-13-2024 End: 03-13-2024 [facility] Facility:[facility] Start: 03-13-2024 End: 03-13-2024 Patient encounter procedure Hu Pickard DPM Work Phone: Plastic Surgery Comment on above: Ulcer of right foot with fat layer exposed (HCC) (Primary Dx) Start: 03-13-2024 Telephone encounter Li christensen APRN.HEEL CURVER Work Phone: Cardiology Comment on above: Symptoms Start: 03-13-2024 End: 03-13-2024 ambulatory HU PICKARD Facility:[facility] Start: 03-06-2024 End: 03-06-2024 Patient encounter procedure Shanel Newell APRN.HEEL CURVER Work Phone: Cardiology Comment on above: Chronic heart failur e with preserved ejection fraction (HCC) (Primary Dx); Primary hypertension; Mixed hyperlipidemia; NELLY (obstructive sleep apnea) Start: 03-06-2024 End: 03-06-2024 [facility] Facility:[facility] Start: 03-06-2024 End: 03-06-2024 Nursing evaluation of patient and report Nurse Brooklynn [facility] Work Phone: [facility] Comment on above: Vitamin B 12 deficie ncy (Primary Dx) Start: 03-01-2024 End: 03-01-2024 Patient encounter procedure Berny Reyes DPM Work Phone: Plastic Surgery Comment on above: PVD (peripheral vasc ular disease) (HCC) (Primary Dx); Wound infection Start: 03-01-2024 End: 03-01-2024 ambulatory BERNY REYES Facility:[facility] Start: 02-24-2024 End: 02-24-2024 Patient encounter procedure Alfredo Ureña MD Work Phone: [facility] Gynecology Oncology Start: 02-24-2024 End: 02-24-2024 ambulatory Alfredo Ureña MD Work Phone: [facility] Gynecology Oncology Comment on above: Endometrial cancer ( HCC) (Primary Dx); Vulvar dermatitis Start: 02-09-2024 End: 02-09-2024 ambulatory ELDON GILL Facility:[facility] Start: 02-09-2024 End: 02-09-2024 Office outpatient visit 25 minutes Eldon Gill DO Work Phone: [facility] Comment on above: Vitamin B12 deficien cy (Primary Dx); 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, with long-term current use of insulin (HCC); Screening for colon cancer Start: 01-25-2024 Telephone encounter Giovanni Cerrato MD Work Phone: Endocrinology Comment on above: Office notes request ed (ADS ) Start: 01-12-2024 Telephone encounter Eldon milian DO Work Phone: [facility] Comment on above: Appointment Start: 01-11-2024 End: 01-11-2024 Nursing evaluation of patient and report Nurse [facility] Rodriguez Work Phone: [facility] Comment on above: Vitamin B 12 deficie ncy (Primary Dx) Start: 12-17-2023 Telephone encounter Eldon milian DO Work Phone: [facility] Comment on above: Results (Retina Yariel vargas [facility]) Start: 12-17-2023 End: 12-17-2023 Patient encounter procedure Ayan Wallis APRN.CNP Work Phone: Cardiology Comment on above: Chronic heart failur e with preserved ejection fraction (HCC) (Primary Dx); Primary hypertension; Mixed hyperlipidemia Start: 12-14-2023 End: 12-14-2023 Nursing evaluation of patient and report Nurse Brooklynn Rodriguez Work Phone: [facility] Comment on above: Vitamin B 12 deficie ncy (Primary Dx) Start: 12-10-2023 Nurse Triage Eldon rey DO Work Phone: [facility] Comment on above: Orders Start: 12-05-2023 Refill Olegario Sadler DO Work Phone: Cardiology Comment on above: Refill Request Start: 11-28-2023 Refill Giovanni philip MD Work Phone: Endocrinology Comment on above: Refill Request Start: 11-25-2023 End: 11-25-2023 ambulatory Alfredo Ureña MD Work Phone: [facility] Gynecology Oncology Comment on above: Endometrial cancer ( HCC) (Primary Dx) Start: 11-25-2023 End: 11-25-2023 Patient encounter procedure Alfredo Ureña MD Work Phone: [facility] Start: 11-24-2023 ambulatory Giovanni philip MD Work Phone: Endocrinology Comment on above: Intervention Radiolo gy Start: 11-16-2023 End: 11-16-2023 Nursing evaluation of patient and report Nurse Brooklynn Rodriguez Work Phone: [facility] Comment on above: B12 deficiency (Prim narciso Dx) Start: 11-04-2023 Telephone encounter Ayan rey APRN.CNP Work Phone: Cardiology Comment on above: Appointment Start: 02-21-2024 ambulatory Eldon rey DO Work Phone: Internal Medicine [facility] Start: 10-07-2023 End: 10-07-2023 Patient encounter procedure Berny Reyes DPM Work Phone: Plastic Surgery Comment on above: Wound infection (Yuni yovani Dx); Controlled type 2 diabetes mellitus without complication, 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 retirement insulin use (HCC); Ulcer of right foot with fat layer exposed (HCC) Start: 08-18-2023 Preprocedural examination done Berny Maurotiki DPM Work Phone: [facility] Work Phone: Start: 08-17-2023 Telephone encounter Alfredo Ross MD Work Phone: [facility] Gynecology Oncology Comment on above: Preparations For Keny halina Start: 08-16-2023 Telephone encounter Olegario Tommy Sadler DO Work Phone: Cardiology Comment on above: Cardiac Clearance (Radha Ureña) Start: 08-09-2023 End: 08-09-2023 Orders Only Alfredo Ureña MD Work Phone: [facility] Gynecology Oncology Comment on above: Endometrium cancer ( HCC) (Primary Dx) Endometrial cancer ( HCC) (Primary Dx); Mixed stress and urge urinary incontinence Start: 07-28-2023 ambulatory Jeanie cunningham MD Work Phone: Obstetrics/Gynecolog y Comment on above: MRI Start: 07-27-2023 ambulatory Eldon Rubioward rey DO Work Phone: Internal Medicine [facility] Start: 07-27-2023 End: 07-27-2023 Nursing evaluation of patient and report Nurse Brooklynn Rodriguez Work Phone: [facility] Comment on above: Vitamin B12 deficien cy (Primary Dx) Start: 07-27-2023 End: 07-27-2023 Patient encounter procedure [facility] Work Phone: Plastic Surgery Comment on above: Right foot ulcer, li mited to breakdown of skin (HCC) (Primary Dx); Ulcer of right foot with fat layer exposed (HCC); PVD (peripheral vascular disease) (HCC); 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, with fat layer exposed (HCC); Infection; Amputation of right great toe (HCC); Traumatic amputation of second toe of right foot, subsequent encounter (HCC); Venous stasis ulcer of right ankle limited to breakdown of skin, 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 varicose veins present (HCC) Start: 07-26-2023 Telephone encounter Chen Disla APRN.HEEL CURVER Work Phone: [facility] Gynecology Oncology Comment on above: Initial Consult; Patricia ointment Start: 07-23-2023 ambulatory Jeanie cunningham MD Work Phone: Obstetrics/Gynecolog y Comment on above: Lab Start: 07-23-2023 E-mail encounter sukhdev delgado caregiver Jeanie Post MD Work Phone: [facility] Start: 07-15-2023 End: 07-15-2023 Patient encounter procedure Jeanie Post MD Work Phone: Obstetrics/Gynecolog y Comment on above: PMB (postmenopausal bleeding) (Primary Dx); Thickened endometrium [R93.89] Start: 07-09-2023 ambulatory Eldon rey DO Work Phone: [facility] Comment on above: Symptoms (Recent fal l); Head Injury Start: 07-09-2023 Telephone encounter Li christensen APRN.HEEL CURVER Work Phone: Cardiology Comment on above: Symptoms Start: 06-29-2023 End: 06-29-2023 Nursing evaluation of patient and report Nurse [facility] Work Phone: [facility] Comment on above: Vitamin B12 deficien cy (Primary Dx) Start: 06-29-2023 End: 06-29-2023 Patient encounter procedure [facility] Work Phone: Plastic Surgery Comment on above: Right foot ulcer, li mited to breakdown of skin (HCC) (Primary Dx); Ulcer of right foot with fat layer exposed (HCC); PVD (peripheral vascular disease) (HCC); 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, with fat layer exposed (HCC); Infection; Amputation of right great toe (HCC); Traumatic amputation of second toe of right foot, subsequent encounter (HCC); Venous stasis ulcer of right ankle limited to breakdown of skin, 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 varicose veins present (HCC); Wound infection Start: 06-25-2023 Telephone encounter Eldon milian DO Work Phone: [facility] Start: 06-17-2023 End: 06-17-2023 Patient encounter procedure Ayan Wallis APRN.HEEL CURVER Work Phone: Cardiology Comment on above: Chronic heart failur e with preserved ejection fraction (HCC) (Primary Dx); Primary hypertension; Mixed hyperlipidemia Start: 05-10-2023 Telephone encounter Violetta Jimenez PA-C Work Phone: Obstetrics/Gynecolog y Comment on above: Results Start: 05-06-2023 Telephone encounter Ayan rey APRN.HEEL CURVER Work Phone: Cardiology Comment on above: Patient Question Start: 05-04-2023 End: 05-04-2023 Nursing evaluation of patient and report Nurse Brooklynn Rodriguez Work Phone: [facility] Comment on above: B12 deficiency (Prim narciso Dx); Need for vaccination Start: 05-04-2023 End: 05-04-2023 ambulatory Jasmina Bell MD Work Phone: Reproductive Endocrinology Infertility Start: 05-04-2023 End: 05-04-2023 Patient encounter procedure Jasmina Bell MD Work Phone: [facility] Start: 04-27-2023 Rx Renewal Alvina Ronquillo rt Work Phone: [place] [address] Work Phone: Start: 04-15-2023 Telephone encounter Violetta Jimenez PA-C Work Phone: Obstetrics/Gynecolog y Comment on above: CCM Updated Plan Of Care Start: 04-06-2023 End: 04-06-2023 Patient encounter procedure Shanel J Reece FINANCIAL REPORTING ANALYST.HEEL CURVER Work Phone: Cardiology Comment on above: Chronic heart failur e with preserved ejection fraction (HCC) (Primary Dx); Mixed hyperlipidemia; Primary hypertension; NELLY (obstructive sleep apnea) Start: 03-25-2023 Telephone encounter Ayan rey FINANCIAL REPORTING ANALYST.HEEL CURVER Work Phone: Cardiology Comment on above: Patient Update Orders (BMP ordered) Start: 03-23-2023 Telephone encounter Rodo Bass FINANCIAL REPORTING ANALYST.HEEL CURVER Work Phone: Neurology Comment on above: Orders ([employer] ) Start: 03-18-2023 End: 03-18-2023 ambulatory [facility] Comment on above: Wound Care Start: 03-18-2023 End: 03-18-2023 Patient encounter procedure [facility] Start: 03-17-2023 End: 03-17-2023 ambulatory [facility] Comment on above: Wound Care Start: 03-17-2023 End: 03-17-2023 Patient encounter procedure [facility] Start: 03-16-2023 End: 03-16-[facility] Comment on above: Wound Care Start: 03-16-2023 End: 03-16-2023 Patient encounter procedure [facility] Start: 03-15-2023 End: 03-15-2023 ambulatory [facility] Comment on above: Wound Care Start: 03-15-2023 End: 03-15-2023 Patient encounter procedure [facility] Start: 03-12-2023 End: 03-12-2023 ambulatory [facility] Comment on above: Wound Care Start: 03-12-2023 End: 03-12-2023 Patient encounter procedure [facility] Start: 03-12-2023 End: 03-12-2023 Nursing evaluation of patient and report Nurse Brooklynn Rodriguez Mc Work Phone: [facility] Comment on above: B12 deficiency (Prim narciso Dx) Start: 03-11-2023 End: 03-11-2023 ambulatory [facility] Comment on above: Wound Care Start: 03-11-2023 End: 03-11-2023 Patient encounter procedure [facility] Work Phone: Plastic Surgery Comment on above: Right foot ulcer, li mited to breakdown of skin (HCC) (Primary Dx) Start: 03-10-2023 End: 03-10-2023 ambulatory [facility] Comment on above: Wound Care Start: 03-10-2023 End: 03-10-2023 Patient encounter procedure Ayan Wallis APRN.HEEL CURVER Work Phone: Cardiology Comment on above: Chronic heart failur e with preserved ejection fraction (HCC) (Primary Dx); Primary hypertension; Mixed hyperlipidemia; Type 2 diabetes mellitus with mild nonproliferative diabetic retinopathy without macular edema, unspecified eye (HCC) Chronic diastolic co ngestive heart failure (HCC) (Primary Dx) Start: 03-08-2023 End: 03-08-2023 [facility] Comment on above: Wound Care Start: 03-08-2023 End: 03-08-2023 Patient encounter procedure [facility] Start: 03-05-2023 End: 03-05-2023 [facility] Comment on above: Wound Care Start: 03-05-2023 End: 03-05-2023 Patient encounter procedure [facility] Start: 03-03-2023 End: 03-03-2023 ambulatory [facility] Comment on above: Wound Care Start: 03-03-2023 End: 03-03-2023 Patient encounter procedure [facility] Start: 03-01-2023 End: 03-01-2023 ambulatory [facility] Comment on above: Wound Care Start: 03-01-2023 End: 03-01-2023 Patient encounter procedure [facility] Start: 02-25-2023 End: 02-25-2023 ambulatory [facility] Comment on above: Wound Care Start: 02-25-2023 End: 02-25-2023 Patient encounter procedure [facility] Work Phone: Plastic Surgery Comment on above: Right foot ulcer, li mited to breakdown of skin (HCC) (Primary Dx) Start: 02-24-2023 End: 02-24-2023 ambulatory [facility] Comment on above: Wound Care Start: 02-24-2023 End: 02-24-2023 Patient encounter procedure [facility] Start: 02-23-2023 End: 02-23-2023 ambulatory [facility] Comment on above: Wound Care Start: 02-23-2023 End: 02-23-2023 Patient encounter procedure [facility] Start: 02-22-2023 End: 02-22-2023 ambulatory [facility] Comment on above: Wound Care Start: 02-22-2023 End: 02-22-2023 Patient encounter procedure [facility] Start: 02-19-2023 End: 02-19-2023 ambulatory [facility] Comment on above: Wound Care Start: 02-19-2023 End: 02-19-2023 Patient encounter procedure [facility] Start: 02-18-2023 End: 02-18-2023 ambulatory [facility] Comment on above: Wound Care Start: 02-18-2023 End: 02-18-2023 Patient encounter procedure [facility] Start: 02-17-2023 Telephone encounter Rodo Bass APRN.HEEL CURVER Work Phone: Neurology Comment on above: Patient Question; Ap pointment Start: 02-15-2023 End: 02-15-2023 ambulatory [facility] Comment on above: Wound Care Start: 02-15-2023 End: 02-15-2023 Patient encounter procedure [facility] Start: 02-11-2023 End: 02-11-2023 [facility] Comment on above: Wound Care Start: 02-11-2023 End: 02-11-2023 Patient encounter procedure [facility] Start: 02-10-2023 End: 02-10-2023 ambulatory [facility] Comment on above: Wound Care Start: 02-10-2023 End: 02-10-2023 Patient encounter procedure [facility] Start: 02-08-2023 ambulatory Eldon rey DO Work Phone: [facility] Comment on above: Bleeding/Bruising Start: 02-08-2023 End: 02-08-2023 Patient encounter procedure Tati Aguilera PA-C Work Phone: [facility] Comment on above: Hematuria, unspecifi ed type (Primary Dx); Postmenopausal bleeding NELLY (obstructive sle ep apnea) (Primary Dx); Chronic heart failure with preserved ejection fraction (HCC); RLS (restless legs syndrome); Iron deficiency; Vitamin D deficiency Start: 02-05-2023 End: 02-05-2023 [facility]ulatory [facility] Comment on above: Wound Care Start: 02-05-2023 End: 02-05-2023 Patient encounter procedure [facility] Start: 02-05-2023 End: 02-05-2023 Office outpatient visit 25 minutes Eldon Gill DO Work Phone: [facility] Comment on above: Encounter for immuni zation (Primary Dx); Vitamin B12 deficiency; Primary hypertension Start: 02-04-2023 End: 02-04-2023 ambulatory [facility] Comment on above: Wound Care Start: 02-04-2023 End: 02-04-2023 Patient encounter procedure [facility] Work Phone: Plastic Surgery Comment on above: Right foot ulcer, li mited to breakdown of skin (HCC) (Primary Dx) Start: 02-03-2023 End: 02-03-2023 ambulatory [facility] Comment on above: Wound Care Start: 02-03-2023 End: 02-03-2023 Patient encounter procedure [facility] Start: 02-02-2023 End: 02-02-2023 ambulatory [facility] Comment on above: Wound Care Start: 02-02-2023 End: 02-02-2023 Patient encounter procedure [facility] Start: 01-29-2023 End: 01-29-2023 [facility]ulatory [facility] Comment on above: Wound Care Start: 01-29-2023 End: 01-29-2023 Patient encounter procedure [facility] Start: 01-15-2023 End: 01-15-2023 ambulatory [facility] Comment on above: Wound Care Start: 01-15-2023 End: 01-15-2023 Patient encounter procedure [facility] Work Phone: Plastic Surgery Comment on above: Ulcer of right foot with fat layer exposed (HCC) (Primary Dx) Start: 01-14-2023 End: 01-14-2023 [facility]ulatory [facility] Comment on above: Wound Care Start: 01-14-2023 End: 01-14-2023 Patient encounter procedure [facility] Start: 01-13-2023 End: 01-13-2023 ambulatory [facility] Comment on above: Wound Care Start: 01-13-2023 End: 01-13-2023 Patient encounter procedure [facility] Start: 01-12-2023 End: 01-12-2023 ambulatory [facility] Comment on above: Wound Care Start: 01-12-2023 End: 01-12-2023 Patient encounter procedure [facility] Start: 01-12-2023 End: 01-12-2023 Nursing evaluation of patient and report Nurse Brooklynn Rodriguez Mc Work Phone: [facility] Comment on above: Vitamin B12 deficien cy (Primary Dx) Start: 01-11-2023 End: 01-11-2023 ambulatory [facility] Comment on above: Wound Care Start: 01-11-2023 End: 01-11-2023 Patient encounter procedure [facility] Start: 01-08-2023 End: 01-08-2023 ambulatory [facility] Comment on above: Wound Care Start: 01-08-2023 End: 01-08-2023 Patient encounter procedure [facility] Start: 01-07-2023 End: 01-07-2023 ambulatory [facility] Comment on above: Wound Care Start: 01-07-2023 End: 01-07-2023 Patient encounter procedure [facility] Work Phone: Plastic Surgery Comment on above: Ulcer of right foot with fat layer exposed (HCC) (Primary Dx) Start: 01-06-2023 End: 01-06-2023 ambulatory [facility] Comment on above: Wound Care Start: 01-06-2023 End: 01-06-2023 Patient encounter procedure [facility] Start: 01-05-2023 End: 01-05-2023 Subsequent hospital visit by physician [facility] Work Phone: Cardiology Lab Comment on above: Chronic heart failur e with preserved ejection fraction (HCC) [I50.32] Start: 01-05-2023 End: 01-05-2023 Subsequent hospital visit by physician [facility] Work Phone: Molecular Imaging Comment on above: Chronic heart failur e with preserved ejection fraction (HCC) [I50.32] Start: 01-04-2023 End: 01-04-2023 ambulatory [facility] Comment on above: Wound Care Start: 01-04-2023 Telephone encounter Maria Guadalupe trujillo RN Cardiology Lab Comment on above: Reminder Call Start: 01-04-2023 End: 01-04-2023 Patient encounter procedure [facility] Work Phone: Plastic Surgery Comment on above: Ulcer of right foot with fat layer exposed (HCC) (Primary Dx) Start: 12-31-2022 End: 12-31-2022 Patient encounter procedure [facility] Work Phone: Plastic Surgery Comment on above: Ulcer of right foot with fat layer exposed (HCC) (Primary Dx) Start: 12-30-2022 End: 12-30-2022 ambulatory [facility] Comment on above: Wound Care Start: 12-30-2022 End: 12-30-2022 Patient encounter procedure [facility] Start: 12-29-2022 End: 12-29-2022 Orders Only Ayan Wallis APRN.HEEL CURVER Work Phone: Cardiology Comment on above: Chronic heart failur e with preserved ejection fraction (HCC) (Primary Dx) Wound Care Start: 12-28-2022 End: 12-28-2022 ambulatory [facility] Comment on above: Wound Care Start: 12-28-2022 End: 12-28-2022 Patient encounter procedure [facility] Start: 12-25-2022 End: 12-25-2022 ambulatory [facility] Comment on above: Wound Care Start: 12-25-2022 End: 12-25-2022 Patient encounter procedure [facility] Start: 12-24-2022 End: 12-24-2022 ambulatory [facility] Comment on above: Wound Care Start: 12-24-2022 End: 12-24-2022 Patient encounter procedure Ayan Wallis APRN.HEEL CURVER Work Phone: Cardiology Comment on above: Chronic heart failur e with preserved ejection fraction (HCC) (Primary Dx); Primary hypertension; Mixed hyperlipidemia Ulcer of right foot with fat layer exposed (HCC) (Primary Dx) Start: 12-23-2022 End: 12-23-2022 ambulatory [facility] Comment on above: Wound Care Start: 12-23-2022 End: 12-23-2022 Patient encounter procedure [facility] Start: 12-22-2022 End: 12-22-2022 ambulatory [facility] Comment on above: Wound Care Start: 12-22-2022 End: 12-22-2022 Patient encounter procedure [facility] Start: 12-18-2022 End: 12-18-2022 ambulatory [facility] Comment on above: Wound Care Start: 12-18-2022 End: 12-18-2022 Patient encounter procedure [facility] Start: 12-17-2022 End: 12-17-2022 ambulatory [facility] Comment on above: Wound Care Start: 12-17-2022 End: 12-17-2022 Patient encounter procedure [facility] Comment on above: Ulcer of right foot with fat layer exposed (HCC) (Primary Dx); PVD (peripheral vascular disease) (HCC); 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, with fat layer exposed (HCC) Start: 12-16-2022 End: 12-16-2022 ambulatory [facility] Comment on above: Wound Care Start: 12-16-2022 End: 12-16-2022 Patient encounter procedure [facility] Start: 12-15-2022 End: 12-15-2022 ambulatory [facility] Comment on above: Wound Care Start: 12-15-2022 End: 12-15-2022 Patient encounter procedure [facility] Start: 12-14-2022 End: 12-14-2022 ambulatory [facility] Comment on above: Wound Care Start: 12-14-2022 End: 12-14-2022 Patient encounter procedure [facility] Work Phone: Plastic Surgery Comment on above: Ulcer of right foot with fat layer exposed (HCC) (Primary Dx) Start: 12-11-2022 End: 12-11-2022 ambulatory [facility] Comment on above: Wound Care Start: 12-11-2022 End: 12-11-2022 Patient encounter procedure [facility] Start: 12-10-2022 End: 12-10-2022 ambulatory [facility] Comment on above: Wound Care Start: 12-10-2022 End: 12-10-2022 Patient encounter procedure [facility] Work Phone: Plastic Surgery Comment on above: Ulcer of right foot with fat layer exposed (HCC) (Primary Dx) Start: 12-09-2022 End: 12-09-2022 ambulatory [facility] Comment on above: Wound Care Start: 12-09-2022 End: 12-09-2022 Patient encounter procedure [facility] Start: 12-08-2022 End: 12-08-2022 ambulatory [facility] Comment on above: Wound Care Start: 12-08-2022 End: 12-08-2022 Patient encounter procedure [facility] Start: 12-07-2022 End: 12-07-2022 ambulatory [facility] Comment on above: Wound Care Start: 12-07-2022 End: 12-07-2022 Patient encounter procedure [facility] Work Phone: Plastic Surgery Comment on above: Ulcer of right foot with fat layer exposed (HCC) (Primary Dx) Start: 12-04-2022 End: 12-04-2022 ambulatory [facility] Comment on above: Wound Care Start: 12-04-2022 End: 12-04-2022 Patient encounter procedure [facility] Start: 12-03-2022 End: 12-03-2022 ambulatory [facility] Comment on above: Wound Care Start: 12-03-2022 End: 12-03-2022 Patient encounter procedure [facility] Work Phone: Plastic Surgery Comment on above: Ulcer of right foot with fat layer exposed (HCC) (Primary Dx) Start: 12-01-2022 End: 12-01-2022 Nursing evaluation of patient and report Nurse Brooklynn [facility] Work Phone: [facility] [place] Comment on above: Vitamin B12 deficien cy (Primary Dx) Start: 11-30-2022 End: 11-30-2022 Patient encounter procedure [facility] Work Phone: Plastic Surgery Comment on above: Ulcer of right foot with fat layer exposed (HCC) (Primary Dx) Start: 11-26-2022 End: 11-26-2022 Patient encounter procedure [facility] Work Phone: Plastic Surgery Comment on above: Infection (Primary D x) Start: 11-23-2022 End: 11-23-2022 Subsequent hospital visit by physician Sumi Rodriguez [facility] Comment on above: PVD (peripheral vasc ular disease) (HCC) [I73.9] Start: 11-23-2022 End: 11-23-2022 Patient encounter procedure [facility] Work Phone: Plastic Surgery Comment on above: Ulcer of right foot with fat layer exposed (HCC) (Primary Dx) Start: 11-19-2022 End: 11-19-2022 Patient encounter procedure [facility] Work Phone: Plastic Surgery Comment on above: Ulcer of right foot with fat layer exposed (HCC) (Primary Dx) Start: 11-16-2022 End: 11-16-2022 Patient encounter procedure [facility] Work Phone: Plastic Surgery Comment on above: PVD (peripheral vasc ular disease) (HCC) (Primary Dx); Ulcer of right foot with fat layer exposed (HCC); Amputation of right great toe (HCC); Traumatic amputation of second toe of right foot, subsequent encounter (HCC); Right foot ulcer, 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) Start: 11-10-2022 End: 11-10-2022 Patient encounter procedure [facility] Work Phone: Plastic Surgery Comment on above: Venous stasis ulcer of right ankle limited to breakdown of skin, 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 varicose veins present (HCC) (Primary Dx) Start: 11-08-2022 [facility] Work [facility] Comment on above: B-12 shot Start: 11-06-2022 End: 11-06-2022 Patient encounter procedure [facility] Work Phone: Plastic Surgery Comment on above: Venous stasis ulcer of right ankle limited to breakdown of skin, 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 varicose veins present (HCC) (Primary Dx) Start: 10-30-2022 Telephone encounter Eldon guerraindu DO Work Phone: [facility] Comment on above: Patient Update Results Start: 10-23-2022 E-mail encounter fro m caregiver Giovanni Bolanos DPM Work Phone: [facility] [place] Start: 10-23-2022 Patient encounter procedure Giovanni Bolanos DPM Work Phone: Pre Anesthesia Comment on above: PACC APPOINTMENT Start: 10-16-2022 Get Medical Advice Giovanni Cerrato MD Work Phone: Endocrinology Comment on above: A1C order Start: 09-26-2022 End: 09-26-2022 Patient encounter procedure Dennis Garcia MD Work Phone: [facility] Comment on above: Injury of finger of left hand, initial encounter (Primary Dx) Start: 09-24-2022 Telephone encounter Giovanni Cerrato MD Work Phone: Endocrinology Comment on above: finger cut Start: 09-23-2022 End: 09-23-2022 Patient encounter procedure Giovanni Cerrato MD Work Phone: Endocrinology Comment on above: 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, with long-term current use of insulin (HCC) (Primary Dx); B12 deficiency; Mixed hyperlipidemia; Primary hypertension; Vitamin D deficiency; Albuminuria; Obesity, Class I, BMI 30-34.9 Start: 09-22-2022 Telephone encounter Eldon milian DO Work Phone: [facility] Comment on above: Received Outside Med ical Records Start: 09-16-2022 Documentation procedure Mammography Coordinator [facility] Start: 09-16-2022 Letter encounter Mammography Coordin ator LANELLY ANCILLARY AREA NOT LISTED Start: 09-15-2022 End: 09-15-2022 Subsequent hospital visit by physician Screen Mammo [place] RADIO MAMMO REFLECTIONS [facility] Start: 08-24-2022 ambulatory Eldon Weir n DO Work Phone: [facility] Comment on above: Results Start: 08-21-2022 End: 08-21-2022 Patient encounter procedure Ayan Wallis APRN.HEEL CURVER Work Phone: Cardiology Comment on above: Chronic heart failur e with preserved ejection fraction (HCC) (Primary Dx); Primary hypertension; Mixed hyperlipidemia Start: 08-20-2022 End: 08-20-2022 Periodic preventive med est patient 40-64yrs Renettastephen Gill DO Work Phone: [facility] Comment on above: Screening for colon cancer (Primary Dx); Other specified nutritional anemias; Hypertension, essential Start: 08-18-2022 ambulatory Eldon Rubioa n DO Work Phone: [facility] Comment on above: Results Start: 08-17-2022 Telephone encounter Giovanni gill DPM Work Phone: Plastic Surgery Comment on above: Booth Usher - O ther Lab order question/a ppt question Start: 08-04-2022 ambulatory Eldon Rubioa n DO Work Phone: Internal Medicine Main [place] Start: 07-18-2022 ambulatory Eldon Rubioa n DO Work Phone: [facility] Comment on above: Results Start: 07-13-2022 Telephone encounter Olegario Sadler DO Work Phone: Cardiology Comment on above: Patient Question Start: 07-06-2022 Telephone encounter Giovanni Cerrato MD Work Phone: Endocrinology Comment on above: Orders Start: 06-29-2022 Telephone encounter Kevin Kevin RN Cardiology Comment on above: Results Start: 06-23-2022 Telephone encounter Giovanni Cerrato MD Work Phone: Endocrinology Comment on above: ADS Form ([employer] Gemma 2 Belva/ Sensor) Start: 06-03-2022 End: 06-03-2022 Patient encounter procedure Shanel Newell APRN.HEEL CURVER Work Phone: Cardiology Comment on above: Chronic heart failur e with preserved ejection fraction (HCC) (Primary Dx); NELLY (obstructive sleep apnea); LVH (left ventricular hypertrophy); Primary hypertension; Mixed hyperlipidemia; LENTZ (dyspnea on exertion) Start: 05-21-2022 End: 05-21-2022 Patient encounter procedure Ayan Dugganvinod VILLANUEVA.HEEL CURVER Work Phone: Cardiology Comment on above: Chronic heart failur e with preserved ejection fraction (HCC) (Primary Dx); Primary hypertension; Mixed hyperlipidemia Start: 05-19-2022 Telephone encounter Eldon milian DO Work Phone: [facility] Comment on above: Booth Usher - O ther (Request for Outside Medical Records) Start: 05-14-2022 End: 05-14-[address] Nutrition Therapy Comment on above: Assessment; Patient Education Start: 05-12-2022 End: 05-12-2022 Subsequent hospital visit by physician [facility] Work Phone: Cardiology Lab Comment on above: Chronic heart failur e with preserved ejection fraction (HCC) [I50.32] Start: 05-12-2022 End: 05-12-2022 Subsequent hospital visit by physician [facility] Work Phone: Molecular Imaging Comment on above: Chronic heart failur e with preserved ejection fraction (HCC) [I50.32] Start: 05-05-2022 Telephone encounter Shanel Newell APRN.HEEL CURVER Work Phone: Cardiology Comment on above: [facility] Start: 04-30-2022 Chart abstracting [facility] Work Phone: Neurology Comment on above: Psg Check In (Adult) Start: 04-22-2022 AUDIT Alvina Ronquillo rt Work Phone: [facility] Work Phone: Start: 04-22-2022 End: 04-22-2022 Patient encounter procedure Olegario Sadler DO Work Phone: Cardiology Comment on above: Chronic heart failur e with preserved ejection fraction (HCC) (Primary Dx); Primary hypertension; Mixed hyperlipidemia; 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 Alvina Sullivan Fa cility:[id number] Start: 04-01-2022 ambulatory Nilsa Hearn Facilit y:[facility] Start: 04-01-2022 Patient encounter procedure Alvina Sullivan Work Phone: [facility] [address] [place] Work Phone: Start: 04-01-2022 Telephone encounter Giovanni Cerrato MD Work Phone: Endocrinology Comment on above: Patient Update Start: 03-27-2022 AUDIT Alvina beck Work Phone: [facility] [address] [place] Work Phone: Start: 03-24-2022 End: 03-24-2022 Patient encounter procedure [facility] Work Phone: Plastic Surgery Comment on above: Venous stasis ulcer of right ankle limited to breakdown of skin, 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 varicose veins present (HCC) (Primary Dx) Start: 03-23-2022 End: 03-23-2022 Patient encounter procedure Giovanni Cerrato MD Work Phone: Endocrinology Comment on above: 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, with long-term current use of insulin (HCC) (Primary Dx); Albuminuria; Obesity, Class II, BMI 35-39.9; Mixed hyperlipidemia; Primary hypertension Start: 03-19-2022 Current tobacco non- user cad cap copd pv dm Alvina Sullivan Work Phone: [facility] [address] [place] Work Phone: Start: 03-19-2022 ambulatory Nilsa Hearn Facilit y:[facility] Start: 03-17-2022 End: 03-17-2022 ambulatory Hu Barraza PT Work Phone: [facility] Comment on above: Venous stasis ulcers of both lower extremities (HCC) (Primary Dx); Peripheral artery disease (HCC); Venous insufficiency; Multiple open wounds of left lower extremity, subsequent encounter; Multiple open wounds of right lower extremity, subsequent encounter Start: 03-12-2022 Chart Update Alvina beck Work Phone: [facility] Work Phone: Start: 03-12-2022 End: 03-12-2022 ambulatory Hu Barraza PT Work Phone: [facility] Comment on above: Venous stasis ulcers of both lower extremities (HCC) (Primary Dx); Peripheral artery disease (HCC); Venous insufficiency; Multiple open wounds of left lower extremity, subsequent encounter; Multiple open wounds of right lower extremity, subsequent encounter Start: 03-05-2022 Office outpatient vi sit 40 minutes Alvina Sullivan Work Phone: [place] Work Phone: Start: 03-05-[address] Alvina Sullivan Fa cility:[id number] Start: 03-05-2022 End: 03-05-2022 ambulatory Hu Barraza PT Work Phone: [facility] Comment on above: Venous stasis ulcers of both lower extremities (HCC) (Primary Dx); Peripheral artery disease (HCC); Venous insufficiency; Multiple open wounds of left lower extremity, subsequent encounter; Multiple open wounds of right lower extremity, subsequent encounter Start: 02-26-2022 End: 02-26-2022 ambulatory Hu Barraza PT Work Phone: [facility] Comment on above: Venous stasis ulcers of both lower extremities (HCC) (Primary Dx); Peripheral artery disease (HCC); Venous insufficiency; Multiple open wounds of left lower extremity, subsequent encounter; Multiple open wounds of right lower extremity, subsequent encounter Start: 02-23-2022 End: 02-23-2022 Nursing evaluation of patient and report Nurse Wound Care Work Phone: Plastic Surgery Comment on above: Venous stasis ulcer of right ankle limited to breakdown of skin, 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 varicose veins present (HCC) (Primary Dx) Start: 02-23-2022 Chart Update Alvina Ronquillo rt Work Phone: BB-Umrizbxmer-Pndbu Work Phone: Start: 02-20-2022 Rx Renewal Alvina Ronquillo rt Work Phone: MJ-Grtlqcfdru-Ovspn Work Phone: Start: 02-19-[address] Alvina Sullivan Fa cility:[id number] Start: 02-12-2022 Chart Update Alvina Ronquillo rt Work Phone: YF-Bbvyjaujby-Ztswj Work Phone: Start: 02-11-2022 End: 02-11-2022 ambulatory Hu Barraza PT Work Phone: [facility] Comment on above: Venous stasis ulcers of both lower extremities (HCC) (Primary Dx); Peripheral artery disease (HCC); Venous insufficiency; Multiple open wounds of left lower extremity, subsequent encounter; Multiple open wounds of right lower extremity, subsequent encounter Start: 02-05-2022 End: 02-05-2022 ambulatory Hu Barraza PT Work Phone: [facility] Comment on above: Venous stasis ulcers of both lower extremities (HCC) (Primary Dx); Peripheral artery disease (HCC); Venous insufficiency; Multiple open wounds of left lower extremity, subsequent encounter; Multiple open wounds of right lower extremity, subsequent encounter Start: 01-29-2022 NPV, Provider: Forouzandeh,Kiel, Status: Pen, Time: 3:30 PM Alvina Sullivan Work Phone: [facility] Work Phone: Start: 01-29-2022 Office outpatient ne w 60 minutes Alvina Sullivan Work Phone: [facility] Work Phone: Start: 01-29-[address] Kiel Garibay Facility:[id number] Start: 01-27-2022 End: 01-27-2022 ambulatory Hu Barraza PT Work Phone: [facility] Comment on above: Venous stasis ulcers of both lower extremities (HCC) (Primary Dx); Peripheral artery disease (HCC); Venous insufficiency; Multiple open wounds of left lower extremity, subsequent encounter; Multiple open wounds of right lower extremity, subsequent encounter Start: 01-26-2022 Office outpatient vi sit 15 minutes Avlina Sullivan Work Phone: [facility] Work Phone: Start: 01-26-2022 Patient encounter procedure Alvina Sullivan Work Phone: [facility] Work Phone: Start: 01-26-[address] Alvina Sullivan cility:[id number] Start: 01-22-2022 End: 01-22-2022 ambulatory Hu Barraza PT Work Phone: [facility] Comment on above: Venous stasis ulcers of both lower extremities (HCC) (Primary Dx); Peripheral artery disease (HCC); Venous insufficiency; Multiple open wounds of left lower extremity, subsequent encounter; Multiple open wounds of right lower extremity, subsequent encounter Start: 01-13-2022 End: 01-13-2022 Patient encounter procedure [facility] Work Phone: Plastic Surgery Comment on above: Wound infection (Yuni yovani Dx) Start: 12-16-2021 End: 12-16-2021 Patient encounter procedure [facility] Work Phone: Plastic Surgery Comment on above: PVD (peripheral vasc ular disease) (HCC) (Primary Dx); Venous stasis ulcer of ankle limited to breakdown of skin, unspecified laterality, 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 varicose veins present (HCC) Start: 10-03-2021 Chart Update Alvina Ronquillo rt Work Phone: [facility] Work Phone: Start: 09-26-2021 Office outpatient vi sit 15 minutes Alvina Sullivan Work Phone: [facility] Work Phone: Start: 09-26-2021 Patient encounter procedure Alvina Sullivan Work Phone: [facility] Work Phone: Start: 09-26-[address] Alvina Sullivan Fa cility:[id number] Start: 09-08-2021 AUDIT Alvina Ronquillo rt Work Phone: [facility] Work Phone: Start: 08-12-2020 End: 08-12-2020 Subsequent hospital visit by physician Flex Hutson Work Phone: [facility] Comment on above: Sixth (abducent) ner ve palsy, left eye Start: 12-09-2018 End: 12-09-2018 Patient encounter procedure ALVINA SULLIVAN Facility:[facility] Start: 05-20-2018 Emergency department patient visit UNKNOWN PROVIDER [facility] Start: 02-21-2018 Emergency department patient visit Rick Foster [facility] Procedures Date Procedure Procedure Detail Performing Clinician Start: 12-14-2024 Antibody screen HU ARAYA Comment on above: Order Comment: Speci men Type: BLOOD SPECIMENOrdering Facility: [facility] Address: [address] [address] Performed By: #### T [id number] ####RODRIGUEZ BLOOD BANKCLIA [id number] [place] [address] [place] Start: 12-14-2024 Echo transthorac r-t 2d w/wo m-mode rec comp Shanel J Newell FINANCIAL REPORTING ANALYST.HEEL CURVER Work Phone: Start: 11-27-2024 Cul bact xcpt urine blood/stool aerobic isol Hu Pickard DPM Work Phone: Start: 10-30-[address] Alvina Sullivan MD Work Phone: Start: 10-30-2024 Urine microalbumin/creatinine ratio measurement Dr. Alvina Sullivan MD Work Phone: Start: 10-25-2024 Hemoglobin A1c/Hemoglobin.total in Blood Giovanni Cerrato MD Work Phone: Start: 09-04-[address] Alvina acosta MD Work Phone: Start: 07-28-2024 Echocardiography HU PICKARD Start: 07-26-2024 Cul bact xcpt urine blood/stool aerobic isol Berny Reyes DPM Work Phone: Start: 10-07-2023 Cul bact xcpt urine blood/stool aerobic isol Berny Reyes DPM Work Phone: Start: 06-15-2023 Microscopic observat ion [Identifier] in Cervix by Cyto stain Hu Hawley PT Start: 05-04-2023 Us pelvic nonobstetr ic real-time image complete Violetta Jimenez PA-C Work Phone: Start: 02-08-2023 Urnls dip stick/tabl et reagent auto microscopy Tati Aguilera PA-C Work Phone: Start: 02-08-2023 Urnls dip stick/tabl et rgnt auto w/o microscopy Tati Aguilera PA-C Work Phone: Start: 01-05-2023 Myocardial spect mul tiple studies Ayan Wallis APRN.HEEL CURVER Work Phone: Start: 11-26-2022 Cul bact xcpt urine blood/stool aerobic isol Hu Pickard DPM Work Phone: Start: 09-15-2022 Mammography Mammograph y Coordinator Start: 05-12-2022 Myocardial spect mul tiple studies Olegario Sadler DO Work Phone: Start: 03-23-2022 Hemoglobin A1c/Hemoglobin.total in Blood Giovanni Cerrato MD Work Phone: Start: 03-12-2022 Lipid 1996 panel - S tristan or Plasma Hu Hawley PT Start: 02-19-2022 Echocardiography Alvina Sullivan Work Phone: Start: 01-13-2022 Cul bact xcpt urine blood/stool aerobic isol Giovanni Bolanos DPM Work Phone: Start: 08-12-2020 Mri brain brain stem w/o w/contrast material Flex Hutson Work Phone: Start: 12-09-2018 Mammography [facility] Work Phone: Start: 09-15-2011 Hand Surgery Alvina Sullivan Work Phone: Comment on above: Medical records stat es this procedure is to correct Dupuytren contracture.; Dilation And Curetta ge Of Cervical Stump Alvina Sullivan Work Phone: Tonsillectomy Anita Shima beck Work Phone: Plan of Treatment Date Care Activity Detail Author Start: 06-15-2028 HPV Testing HPV Testing [facility] Start: 06-15-2028 Pap Testing Pap Testing [facility] Start: 06-15-2028 Screening for malignant neoplasm of cervix [facility] Start: 05-20-2028 DTaP/Tdap/Td vaccine (2 - Td) DTaP/Tdap/Td vaccine (2 - Td) [place], [place] Start: 05-20-2028 DTaP/Tdap/Td Vaccines (3 - Td or Tdap) DTaP/Tdap/Td Vaccines (3 - Td or Tdap) [facility] Start: 05-20-2028 Urine microalbumin profile [facility] Start: 06-15-2026 Screening for malignant neoplasm of cervix [facility] Start: 01-30-2026 BP Controlled (<130/80) BP Controlled (<130/80) [facility] Start: 01-04-2026 BP Controlled (<130/80) BP Controlled (<130/80) [facility] Start: 12-29-2025 BP Controlled (<130/80) BP Controlled (<130/80) [facility] Start: 12-21-2025 BP Controlled (<130/80) BP Controlled (<130/80) [facility] Start: 12-19-2025 BP Controlled (<130/80) BP Controlled (<130/80) [facility] Start: 12-05-2025 Hepatitis B surface antibody level LDL Cholesterol [facility] Start: 12-01-2025 BP Controlled (<130/80) BP Controlled (<130/80) [facility] Start: 11-30-2025 BP Controlled (<130/80) BP Controlled (<130/80) [facility] Start: 11-27-2025 BP Controlled (<130/80) BP Controlled (<130/80) [facility] Start: 11-17-2025 BP Controlled (<130/80) BP Controlled (<130/80) [facility] Start: 11-10-2025 BP Controlled (<130/80) BP Controlled (<130/80) [facility] Start: 10-27-2025 BP Controlled (<130/80) BP Controlled (<130/80) [facility] Start: 10-25-2025 BP Controlled (<130/80) BP Controlled (<130/80) [facility] Start: 10-04-2025 Annual PCP Team Chronic Disease Visit Annual PCP Team Chronic Disease Visit [facility] Start: 08-17-2025 BP Controlled (<130/80) BP Controlled (<130/80) [facility] Start: 08-02-2025 Diabetes: Estimated Glomerular Filtration Rate for Kidney Health Diabetes: Estimated Glomerular Filtration Rate for Kidney Health [facility] Start: 07-26-2025 BP Controlled (<130/80) BP Controlled (<130/80) [facility] Start: 07-20-2025 Hemoglobin A1c measurement HbA1C [facility] Start: 07-11-2025 BP Controlled (<130/80) BP Controlled (<130/80) [facility] Start: 07-07-2025 BP Controlled (<130/80) BP Controlled (<130/80) [facility] Start: 07-05-2025 Hemoglobin A1c measurement Diabetes: Hemoglobin A1C [facility] Start: 05-29-2025 End: 05-29-2025 Patient encounter procedure 05/29/2025 11:00 AM EDT Office Visit Cardiology [address] [place] [address] Ayan Wallis APRN.HEEL CURVER [address] [place] [address] CHF FOLLOW UP Cardiology Comment on above: CHF FOLLOW UP Start: 05-08-2025 End: 05-08-2025 Patient encounter procedure 05/08/2025 6:00 PM EDT Office Visit [facility] [address] [address] Pari Man MD [address] [place] [address] est care [facility] Comment on above: est care Start: 05-07-2025 Influenza vaccination Influenza Vaccine (Season Ended) [facility] Start: 05-02-2025 End: 05-02-2025 Patient encounter procedure 05/02/2025 10:40 AM EDT Office Visit Endocrinology [address] [address] Giovanni Cerrato MD [address] [address] 6 month follow up Endocrinology Comment on above: 6 month follow up Start: 04-24-2025 Hemoglobin A1c measurement HbA1C [facility] Start: 04-09-2025 End: 04-09-2025 Patient encounter procedure 04/09/2025 10:30 AM EDT Office Visit Neurology [address] [address] Rodo Medrano APRN.HEEL CURVER [address] [place] [address] Sleep Apnea Follow Up - CPAP Neurology Comment on above: Sleep Apnea Follow Up - CPAP Start: 04-03-2025 End: 04-03-2025 Patient encounter procedure [facility] Comment on above: Establish care Start: 03-29-2025 BP Controlled (<130/80) BP Controlled (<130/80) [facility] Start: 03-13-2025 Hemoglobin A1c measurement Diabetes: Hemoglobin A1C [facility] Start: 03-05-2025 End: 03-05-2025 ambulatory 03/05/2025 6:00 PM EDT Procedure [facility] [address] [place] [address] HYPERBARIC THERAPY [facility] Comment on above: HYPERBARIC THERAPY Start: 03-03-2025 Glaucoma screening Dilated Retinal Exam [facility] Start: 03-02-2025 End: 03-02-2025 ambulatory 03/02/2025 6:00 PM EDT Procedure [facility] [address] [place] [address] HYPERBARIC THERAPY [facility] Comment on above: HYPERBARIC THERAPY Start: 03-02-2025 End: 03-02-2025 Patient encounter procedure 03/02/2025 10:00 AM EDT Office Visit Plastic Surgery [address] [place] [address] Hu Pickard, PABLITO [address] [place] [address], [address] [address] bilateral lower legs Plastic Surgery Comment on above: bilateral lower legs Start: 03-01-2025 End: 03-01-2025 ambulatory 03/01/2025 6:00 PM EDT Procedure [facility] [address] [place] [address] HYPERBARIC THERAPY [facility] Comment on above: HYPERBARIC THERAPY Start: 02-28-2025 End: 02-28-2025 ambulatory 02/28/2025 6:00 PM EDT Procedure [facility] [address] [place] [address] HYPERBARIC THERAPY [facility] Comment on above: HYPERBARIC THERAPY Start: 02-27-2025 End: 02-27-2025 ambulatory 02/27/2025 6:00 PM EDT Procedure [facility] [address] [place] [address] HYPERBARIC THERAPY [facility] Comment on above: HYPERBARIC THERAPY Start: 02-26-2025 End: 02-26-2025 ambulatory 02/26/2025 6:00 PM EDT Procedure [facility] [address] [place] [address] HYPERBARIC THERAPY [facility] Comment on above: HYPERBARIC THERAPY Start: 02-23-2025 End: 02-23-2025 ambulatory 02/23/2025 6:00 PM EDT Procedure [facility] [address] [place] [address] HYPERBARIC THERAPY [facility] Comment on above: HYPERBARIC THERAPY Start: 02-23-2025 End: 02-23-2025 Patient encounter procedure 02/23/2025 10:00 AM EDT Office Visit Plastic Surgery [address] [place] [address] Hu Pickard, PABLITO [address] [facility], [address] [address] bilateral lower legs Plastic Surgery Comment on above: bilateral lower legs Start: 02-22-2025 End: 02-22-2025 ambulatory 02/22/2025 6:00 PM EDT Procedure [facility] [address] [place] [address] HYPERBARIC THERAPY [facility] Comment on above: HYPERBARIC THERAPY Start: 02-21-2025 End: 02-21-2025 ambulatory 02/21/2025 6:00 PM EDT Procedure [facility] [address] [place] [address] HYPERBARIC THERAPY [facility] Comment on above: HYPERBARIC THERAPY Start: 02-21-2025 End: 02-21-2025 Patient encounter procedure 02/21/2025 2:00 PM EDT Office Visit Cardiology [address] [address] Shanel Newell, FINANCIAL REPORTING ANALYST.HEEL CURVER [address] [place] [address] 3 mo follow up Cardiology Comment on above: 3 mo follow up Start: 02-20-2025 End: 02-20-2025 ambulatory 02/20/2025 6:00 PM EDT Procedure [facility] [address] [place] [address] HYPERBARIC THERAPY [facility] Comment on above: HYPERBARIC THERAPY Start: 02-19-2025 End: 02-19-2025 ambulatory 02/19/2025 6:00 PM EDT Procedure [facility] [address] [place] [address] HYPERBARIC THERAPY [facility] Comment on above: HYPERBARIC THERAPY Start: 02-16-2025 End: 02-16-2025 ambulatory 02/16/2025 6:00 PM EDT Procedure [facility] [address] [place] [address] HYPERBARIC THERAPY [facility] Comment on above: HYPERBARIC THERAPY Start: 02-16-2025 End: 02-16-2025 Patient encounter procedure 02/16/2025 9:30 AM EDT Office Visit Plastic Surgery [address] [place] [address] Hu Pickard, PABLITO [address] [facility], [address] [place] [address] bilateral lower legs Plastic Surgery Comment on above: bilateral lower legs Start: 02-15-2025 End: 02-15-2025 ambulatory 02/15/2025 6:00 PM EDT Procedure [facility] [address] [place] [address] HYPERBARIC THERAPY [facility] Comment on above: HYPERBARIC THERAPY Start: 02-14-2025 End: 02-14-2025 ambulatory 02/14/2025 6:00 PM EDT Procedure [facility] [address] [place] [address] HYPERBARIC THERAPY [facility] Comment on above: HYPERBARIC THERAPY Start: 02-13-2025 End: 02-13-2025 ambulatory 02/13/2025 6:00 PM EDT Procedure [facility] [address] [place] [address] HYPERBARIC THERAPY [facility] Comment on above: HYPERBARIC THERAPY Start: 02-13-2025 End: 02-13-2025 Patient encounter procedure 02/13/2025 12:40 PM EDT Office Visit Plastic Surgery [address] [place] [address] Franky Barnes MD [address] [address] Bilateral Lower Legs Plastic Surgery Comment on above: Bilateral Lower Legs Start: 02-12-2025 End: 02-12-2025 ambulatory 02/12/2025 6:00 PM EDT Procedure [facility] [address] [place] [address] HYPERBARIC THERAPY [facility] Comment on above: HYPERBARIC THERAPY Start: 02-09-2025 End: 02-09-2025 ambulatory 02/09/2025 6:00 PM EDT Procedure [facility] [address] [place] [address] HYPERBARIC THERAPY [facility] Comment on above: HYPERBARIC THERAPY Start: 02-09-2025 End: 02-09-2025 Patient encounter procedure 02/09/2025 10:00 AM EDT Office Visit Plastic Surgery [address] [place] [address] Hu Pickard, PABLITO [address] [facility], [address] [place] [address] bilateral lower legs Plastic Surgery Comment on above: bilateral lower legs Start: 02-08-2025 End: 02-08-2025 ambulatory 02/08/2025 6:00 PM EDT Procedure [facility] [address] [place] [address] HYPERBARIC THERAPY [facility] Comment on above: HYPERBARIC THERAPY Start: 02-08-2025 Annual PCP Team Chronic Disease Visit Annual PCP Team Chronic Disease Visit [facility] Start: 02-08-2025 BP Controlled (<130/80) BP Controlled (<130/80) [facility] Start: 02-08-2025 Diabetic foot examination Diabetic Foot Exam [facility] Start: 02-07-2025 End: 02-07-2025 ambulatory 02/07/2025 6:00 PM EDT Procedure [facility] [address] [place] [address] HYPERBARIC THERAPY [facility] Comment on above: HYPERBARIC THERAPY Start: 02-06-2025 End: 02-06-2025 ambulatory 02/06/2025 6:00 PM EDT Procedure [facility] [address] [place] [address] HYPERBARIC THERAPY [facility] Comment on above: HYPERBARIC THERAPY Start: 02-05-2025 End: 02-05-2025 ambulatory 02/05/2025 6:00 PM EDT Procedure [facility] [address] [place] [address] HYPERBARIC THERAPY [facility] Comment on above: HYPERBARIC THERAPY Start: 02-02-2025 End: 02-02-2025 ambulatory 02/02/2025 6:00 PM EDT Procedure [facility] [address] [place] [address] HYPERBARIC THERAPY [facility] Comment on above: HYPERBARIC THERAPY Start: 02-02-2025 End: 02-02-2025 Patient encounter procedure 02/02/2025 10:00 AM EDT Office Visit Plastic Surgery [address] [place] [address] Hu Pickard, PABLITO [address] [facility], [address] [address] bilatreral lower leg Plastic Surgery Comment on above: bilatreral lower leg Start: 02-01-2025 End: 02-01-2025 ambulatory 02/01/2025 6:00 PM EDT Procedure [facility] [address] [place] [address] HYPERBARIC THERAPY [facility] Comment on above: HYPERBARIC THERAPY Start: 01-31-2025 End: 01-31-2025 ambulatory 01/31/2025 6:00 PM EDT Procedure [facility] [address] [place] [address] HYPERBARIC THERAPY [facility] Comment on above: HYPERBARIC THERAPY Start: 01-30-2025 End: 01-30-2025 ambulatory 01/30/2025 6:00 PM EDT Procedure [facility] [address] [place] [address] HYPERBARIC THERAPY [facility] Comment on above: HYPERBARIC THERAPY Start: 01-30-2025 End: 01-30-2025 Patient encounter procedure 01/30/2025 1:00 PM EDT Office Visit Plastic Surgery [address] [place] [address] Franky Barnes MD [address] [address] Bilateral Lower Legs Plastic Surgery Comment on above: Bilateral Lower Legs Start: 01-26-2025 End: 01-26-2025 ambulatory 01/26/2025 6:00 PM EDT Procedure [facility] [address] [place] [address] HYPERBARIC THERAPY [facility] Comment on above: HYPERBARIC THERAPY Start: 01-25-2025 End: 01-25-2025 ambulatory 01/25/2025 6:00 PM EDT Procedure [facility] [address] [place] [address] HYPERBARIC THERAPY [facility] Comment on above: HYPERBARIC THERAPY Start: 01-24-2025 End: 01-24-2025 ambulatory 01/24/2025 6:00 PM EDT Procedure [facility] [address] [place] [address] HYPERBARIC THERAPY [facility] Comment on above: HYPERBARIC THERAPY Start: 01-23-2025 End: 01-23-2025 ambulatory 01/23/2025 6:00 PM EDT Procedure [facility] [address] [place] [address] HYPERBARIC THERAPY [facility] Comment on above: HYPERBARIC THERAPY Start: 01-22-2025 End: 01-22-2025 ambulatory 01/22/2025 6:00 PM EDT Procedure [facility] [address] [place] [address] HYPERBARIC THERAPY [facility] Comment on above: HYPERBARIC THERAPY Start: 01-19-2025 End: 01-19-2025 ambulatory 01/19/2025 6:00 PM EDT Procedure [facility] [address] [place] [address] HYPERBARIC THERAPY [facility] Comment on above: HYPERBARIC THERAPY Start: 01-19-2025 End: 01-19-2025 Patient encounter procedure Plastic Surgery Comment on above: bilatreral lower leg Lab before appt bila treral lower leg Start: 01-18-2025 End: 01-18-2025 ambulatory 01/18/2025 6:00 PM EDT Procedure [facility] [address] [place] [address] HYPERBARIC THERAPY [facility] Comment on above: HYPERBARIC THERAPY Start: 01-17-2025 End: 01-17-2025 ambulatory 01/17/2025 6:00 PM EDT Procedure [facility] [address] [place] [address] HYPERBARIC THERAPY [facility] Comment on above: HYPERBARIC THERAPY Start: 01-16-2025 End: 01-16-2025 ambulatory 01/16/2025 6:00 PM EDT Procedure [facility] [address] [place] [address] HYPERBARIC THERAPY [facility] Comment on above: HYPERBARIC THERAPY Start: 01-15-2025 End: 01-15-2025 ambulatory 01/15/2025 6:00 PM EDT Procedure [facility] [address] [place] [address] HYPERBARIC THERAPY [facility] Comment on above: HYPERBARIC THERAPY Start: 01-12-2025 End: 01-12-2025 ambulatory 01/12/2025 6:00 PM EDT Procedure [facility] [address] [place] [address] HYPERBARIC THERAPY [facility] Comment on above: HYPERBARIC THERAPY Start: 01-12-2025 End: 01-12-2025 Patient encounter procedure 01/12/2025 10:00 AM EDT Office Visit Plastic Surgery [address] [place] [address] Hu Pickard, PABLITO [address] [facility], [address] [place] [address] bilatreral lower leg Plastic Surgery Comment on above: bilatreral lower leg Start: 01-11-2025 End: 01-11-2025 ambulatory 01/11/2025 6:00 PM EDT Procedure [facility] [address] [place] [address] HYPERBARIC THERAPY [facility] Comment on above: HYPERBARIC THERAPY Start: 01-10-2025 End: 01-10-2025 ambulatory 01/10/2025 6:00 PM EDT Procedure [facility] [address] [place] [address] HYPERBARIC THERAPY [facility] Comment on above: HYPERBARIC THERAPY Start: 01-10-2025 Diabetes: Estimated Glomerular Filtration Rate for Kidney [facility] Diabetes: Estimated Glomerular Filtration Rate for Kidney [facility] Start: 01-09-2025 End: 01-09-2025 ambulatory 01/09/2025 6:00 PM EDT Procedure [facility] [address] [place] [address] HYPERBARIC THERAPY [facility] Comment on above: HYPERBARIC THERAPY Start: 01-08-2025 End: 01-08-2025 ambulatory 01/08/2025 6:00 PM EDT Procedure [facility] [address] [place] [address] HYPERBARIC THERAPY [facility] Comment on above: HYPERBARIC THERAPY Start: 01-05-2025 End: 01-05-2025 ambulatory 01/05/2025 6:00 PM EDT Procedure [facility] [address] [place] [address] HYPERBARIC THERAPY [facility] Comment on above: HYPERBARIC THERAPY Start: 01-04-2025 End: 01-04-2025 ambulatory 01/04/2025 6:00 PM EDT Procedure [facility] [address] [place] [address] HYPERBARIC THERAPY [facility] Comment on above: HYPERBARIC THERAPY Start: 01-04-2025 End: 01-04-2025 Patient encounter procedure 01/04/2025 9:30 AM EDT Office Visit Plastic Surgery [address] [place] [address] Hu iPckard, PABLITO 7[address] [facility], [address] [address] bilatreral lower leg Plastic Surgery Comment on above: bilatreral lower leg Start: 01-03-2025 End: 01-03-2025 ambulatory 01/03/2025 6:00 PM EDT Procedure [facility] [address] [place] [address] HYPERBARIC THERAPY [facility] Comment on above: HYPERBARIC THERAPY Start: 01-02-2025 End: 01-02-2025 ambulatory 01/02/2025 6:00 PM EDT Procedure [facility] [address] [place] [address] HYPERBARIC THERAPY [facility] Comment on above: HYPERBARIC THERAPY Start: 01-01-2025 End: 01-01-2025 ambulatory 01/01/2025 6:00 PM EDT Procedure [facility] [address] [place] [address] HYPERBARIC THERAPY [facility] Comment on above: HYPERBARIC THERAPY Start: 12-29-2024 End: 12-29-2024 ambulatory 12/29/2024 6:00 PM EDT Procedure [facility] [address] [place] [address] HYPERBARIC THERAPY [facility] Comment on above: HYPERBARIC THERAPY Start: 12-29-2024 End: 12-29-2024 Patient encounter procedure 12/29/2024 10:00 AM EDT Office Visit Plastic Surgery [address] [place] [address] Hu Pickard, PABLITO [address] [facility], [address] [place] [address] bilatreral lower leg Plastic Surgery Comment on above: bilatreral lower leg Start: 12-28-2024 End: 12-28-2024 ambulatory 12/28/2024 6:00 PM EDT Procedure [facility] [address] [place] [address] HYPERBARIC THERAPY [facility] Comment on above: HYPERBARIC THERAPY Start: 12-27-2024 End: 12-27-2024 ambulatory 12/27/2024 6:00 PM EDT Procedure [facility] [address] [place] [address] HYPERBARIC THERAPY [facility] Comment on above: HYPERBARIC THERAPY Start: 12-26-2024 End: 12-26-2024 ambulatory 12/26/2024 6:00 PM EDT Procedure [facility] [address] [place] [address] HYPERBARIC THERAPY [facility] Comment on above: HYPERBARIC THERAPY Start: 12-25-2024 End: 12-25-2024 ambulatory 12/25/2024 6:00 PM EDT Procedure [facility] [address] [place] [address] HYPERBARIC THERAPY [facility] Comment on above: HYPERBARIC THERAPY Start: 12-22-2024 End: 12-22-2024 ambulatory 12/22/2024 6:00 PM EDT Procedure [facility] [address] [place] [address] HYPERBARIC THERAPY [facility] Comment on above: HYPERBARIC THERAPY Start: 12-22-2024 End: 12-22-2024 Admission to same day surgery center 12/22/2024 10:15 AM EDT - 12/22/2024 11:45 AM EDT Surgery [facility] Radiology [address] [place] [address] [place], [address] [address] INSERT PICC W/O PORT OR PUMP ADULT W/O IMAGING GUIDANCE [facility] Radiology Comment on above: INSERT PICC W/O PORT OR PUMP ADULT W/O I MAGING GUIDANCE Start: 12-22-2024 End: 12-22-2024 Insertion picc w/o img gdn 5 yr/> INSERT PICC W/O PORT OR PUMP ADULT W/O IMAGING GUIDANCE Osteomyelitis of other site, unspecified type (HCC) 12/22/2024 10:15 AM EDT ME IR Start: 12-22-2024 Subsequent hospital visit by physician 12/22/2024 10:15 AM EDT Hospital Encounter [facility] Radiology [address] [place] [address] [place], [address] [address] Osteomyelitis of other site, unspecified type (HCC) [M86.9] [facility]iology Comment on above: Osteomyelitis of other site, unspecified type (HCC) [M86.9] Start: 12-21-2024 End: 12-21-2024 ambulatory 12/21/2024 6:00 PM EDT Procedure [facility] [address] [place] [address] HYPERBARIC THERAPY [facility] Comment on above: HYPERBARIC THERAPY Start: 12-21-2024 End: 12-21-2024 Patient encounter procedure 12/21/2024 8:00 AM EDT Office Visit Plastic Surgery [address] [place] [address] Hu Pickard DPM [address] [facility], [address] [place] [address] post op Plastic Surgery Comment on above: post op Start: 12-20-2024 End: 12-20-2024 ambulatory 12/20/2024 6:00 PM EDT Procedure [facility] [address] [place] [address] HYPERBARIC THERAPY [facility] Comment on above: HYPERBARIC THERAPY Start: 12-19-2024 End: 12-19-2024 ambulatory 12/19/2024 6:00 PM EDT Procedure [facility] [address] [place] [address] HYPERBARIC THERAPY [facility] Comment on above: HYPERBARIC THERAPY Start: 12-19-2024 End: 12-19-2024 Patient encounter procedure Plastic Surgery Comment on above: possible antibiotic treatment Aware of visit - pos sible antibiotic treatment Start: 12-18-2024 End: 12-18-2024 ambulatory 12/18/2024 6:00 PM EDT Procedure [facility] [address] [place] [address] HYPERBARIC THERAPY [facility] Comment on above: HYPERBARIC THERAPY Start: 12-15-2024 End: 12-15-2024 ambulatory 12/15/2024 6:00 PM EDT Procedure [facility] [address] [place] [address] HYPERBARIC THERAPY [facility] Comment on above: HYPERBARIC THERAPY Start: 12-15-2024 End: 12-15-2024 Admission to same day surgery center [facility] Surgery Comment on above: DEBRIDEMENT SUBCUTANEOUS TISSUE FIRST 20 SQ CM OR LESS LOWER EXTREMITY DEBRIDEMENT SUBCUTAN EOUS TISSUE FIRST 20 SQ CM OR LESS LOWER EXTREMITY PRONE Start: 12-15-2024 End: 12-15-2024 Biopsy bone open superficial ME OR Start: 12-15-2024 End: 12-15-2024 Dbrdmt subcutaneous tissue ea addl 20 sq cm ME OR Start: 12-15-2024 End: 12-15-2024 Debridement bone each additional 20 sq cm ME OR Start: 12-15-2024 End: 12-15-2024 Debridement muscle & fascia 20 sq cm/< ME OR Start: 12-15-2024 End: 12-15-2024 Debridement subcutaneous tissue 20 sq cm/< ME OR Start: 12-15-2024 End: 12-15-2024 Incision & drainage leg/ankle abscess/hematoma ME OR Start: 12-15-2024 End: 12-15-2024 Negative pressure wound therapy dme <= 50 sq cm ME OR Start: 12-15-2024 End: 12-15-2024 Negative pressure wound therapy dme >50 sq cm ME OR Start: 12-15-2024 Subsequent hospital visit by physician 12/15/2024 12:00 PM EDT Hospital Encounter [facility] Surgery [address] [place] [address] Hu Pickard, PABLITO [address] [facility], [address] [place] [id number] Non-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, 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) [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], Non-pressure chronic ulcer of right lower leg, 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) [L97.911] [facility] Surgery Comment on above: Non-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, 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) [L97.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], Non-pressure chronic ulcer of right lower leg, 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) [L97.911] Start: 12-15-2024 End: 12-15-2024 Patient encounter procedure Plastic Surgery Comment on above: patient requires 160 minutes - bilateral lower legs aware - patient requ ires 160 minutes - bilateral lower legs Start: 12-14-2024 End: 12-14-2024 ambulatory 12/14/2024 6:00 PM EDT Procedure [facility] [address] [place] [address] HYPERBARIC THERAPY [facility] Comment on above: HYPERBARIC THERAPY Start: 12-14-2024 End: 12-14-2024 Patient encounter procedure Cardiology Comment on above: I50.32 I10 E78.2 Left ventricular sys tolic dysfunction [I51.9] Start: 12-13-2024 End: 12-13-2024 ambulatory 12/13/2024 6:00 PM EDT Procedure [facility] [address] [place] [address] HYPERBARIC THERAPY [facility] Comment on above: HYPERBARIC THERAPY Start: 12-12-2024 End: 12-12-2024 ambulatory 12/12/2024 6:00 PM EDT Procedure [facility] [address] [place] [address] HYPERBARIC THERAPY [facility] Comment on above: HYPERBARIC THERAPY Start: 12-11-2024 End: 12-11-2024 ambulatory 12/11/2024 6:00 PM EDT Procedure [facility] [address] [place] [address] HYPERBARIC THERAPY [facility] Comment on above: HYPERBARIC THERAPY Start: 12-08-2024 End: 12-08-2024 ambulatory 12/08/2024 6:00 PM EDT Procedure [facility] [address] [place] [address] HYPERBARIC THERAPY [facility] Comment on above: HYPERBARIC THERAPY Start: 12-08-2024 Subsequent hospital visit by physician 12/08/2024 Hospital Encounter [facility] Surgery [address] [place] [address] Hu Pickard, PABLITO [address] [facility], [address] [place] [address] Non-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, 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 reminded/patient requires 160 minutes - bilateral lower legs Start: 12-07-2024 End: 12-07-2024 ambulatory 12/07/2024 6:00 PM EDT Procedure [facility] [address] [place] [address] HYPERBARIC THERAPY [facility] Comment on above: HYPERBARIC THERAPY Start: 12-06-2024 End: 12-06-2024 ambulatory 12/06/2024 6:00 PM EDT Procedure [facility] [address] [place] [address] HYPERBARIC THERAPY [facility] Comment on above: HYPERBARIC THERAPY Start: 12-05-2024 End: 12-05-2024 ambulatory 12/05/2024 6:00 PM EDT Procedure [facility] [address] [place] [address] HYPERBARIC THERAPY [facility] Comment on above: HYPERBARIC THERAPY Start: 12-04-2024 End: 12-04-2024 ambulatory 12/04/2024 6:00 PM EDT Procedure [facility] [address] [place] [address] HYPERBARIC THERAPY [facility] Comment on above: HYPERBARIC THERAPY Start: 12-01-2024 End: 12-01-2024 ambulatory 12/01/2024 6:00 PM EDT Procedure [facility] [address] [place] [address] HYPERBARIC THERAPY [facility] Comment on above: HYPERBARIC THERAPY Start: 12-01-2024 End: 12-01-2024 Admission to same day surgery center 12/01/2024 12:00 PM EDT - 12/01/2024 2:30 PM EDT Surgery [facility] Surgery [address] [place] [address] Hu Pickard, PABLITO [address] [facility], [address] [place] [address] DEBRIDEMENT SUBCUTANEOUS TISSUE FIRST 20 SQ CM OR LESS LOWER EXTREMITY [facility] Surgery Comment on above: DEBRIDEMENT SUBCUTANEOUS TISSUE FIRST 20 SQ CM OR LESS LOWER EXTREMITY Start: 12-01-2024 End: 12-01-2024 Biopsy bone open superficial BIOPSY BONE OPEN; SUPERFICIAL LOWER EXTREMITY Non-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, 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, 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) 12/01/2024 12:00 PM EDT ME OR Start: 12-01-2024 End: 12-01-2024 Dbrdmt subcutaneous tissue ea addl 20 sq cm DEBRIDEMENT SUBCUTANEOUS TISSUE FOOT EACH ADDITIONAL 20 SQ CM Non-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, 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, 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) 12/01/2024 12:00 PM EDT ME OR Start: 12-01-2024 End: 12-01-2024 Debridement bone each additional 20 sq cm DEBRIDEMENT BONE LOWER EXTREMITY EACH ADDITIONAL 20 SQ CM OR PART THEREOF Non-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, 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, 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) 12/01/2024 12:00 PM EDT ME OR Start: 12-01-2024 End: 12-01-2024 Debridement muscle & fascia 20 sq cm/< DEBRIDEMENT MUSCLE/FASCIA FIRST 20 SQ CM OR LESS LOWER EXTREMITY Non-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, 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, 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) 12/01/2024 12:00 PM EDT ME OR Start: 12-01-2024 End: 12-01-2024 Debridement subcutaneous tissue 20 sq cm/< DEBRIDEMENT SUBCUTANEOUS TISSUE FIRST 20 SQ CM OR LESS LOWER EXTREMITY Non-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, 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, 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) 12/01/2024 12:00 PM EDT ME OR Start: 12-01-2024 End: 12-01-2024 Incision & drainage leg/ankle abscess/hematoma INCISION AND DRAINAGE ABSCESS LEG OR ANKLE Non-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, 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, 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) 12/01/2024 12:00 PM EDT ME OR Start: 12-01-2024 End: 12-01-2024 Negative pressure wound therapy dme <= 50 sq cm APPLICATION WOUND VAC EXTREMITY LOWER TOTAL WOUND SURFACE LESS THAN 50 SQ [facility] Non-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, 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, 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) 12/01/2024 12:00 PM EDT ME OR Start: 12-01-2024 End: 12-01-2024 Negative pressure wound therapy dme >50 sq cm APPLICATION WOUND VAC EXTREMITY LOWER TOTAL WOUND SURFACE GREATER THAN 50 SQ [facility] Non-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, 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, 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) 12/01/2024 12:00 PM EDT ME OR Start: 12-01-2024 Subsequent hospital visit by physician 12/01/2024 12:00 PM EDT Hospital Encounter [facility] Surgery [address] [place] [address] Hu Pickard, [facility] [address] [facility], [address] [place] [address] Non-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, 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) [L97.921], Non-pressure chronic ulcer of right lower leg, 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) [L97.911] [facility] Surgery Comment on above: Non-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, 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) [L97.921], Non-pressure chronic ulcer of right lower leg, 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) [L97.911] Start: 12-01-2024 End: 12-01-2024 Patient encounter procedure 12/01/2024 10:00 AM EDT Office Visit Plastic Surgery [address] [place] [address] Hu Pickard, [facility] [address] [facility], [address] [place] [address] patient requires 160 minutes - bilateral lower legs Plastic Surgery Comment on above: patient requires 160 minutes - bilateral lower legs Start: 11-30-2024 End: 11-30-2024 ambulatory 11/30/2024 6:00 PM EDT Procedure [facility] [address] [place] [address] HYPERBARIC THERAPY [facility] Comment on above: HYPERBARIC THERAPY Start: 11-30-2024 End: 11-30-2024 Anesthesia consultation 11/30/2024 1:40 PM EDT PAT Pre Anesthesia [address] [place] [address] DOS: 12/01/24 RODRIGUEZ Pre Anesthesia Comment on above: DOS: 12/01/24 RODRIGUEZ Start: 11-29-2024 End: 11-29-2024 ambulatory 11/29/2024 6:00 PM EDT Procedure [facility] [address] [place] [address] HYPERBARIC THERAPY [facility] Comment on above: HYPERBARIC THERAPY Start: 11-29-2024 End: 11-29-2024 Admission to same day surgery center 11/29/2024 8:30 AM EDT - 11/29/2024 10:00 AM EDT Surgery [facility] [employer] [employer] [address] [place] [address] Sukhdeep Patel MD [address] [place] [address] LEFT HEART CATH INTRAPROCEDURAL INJECT W/ LEFT VENTRICULOGRAPHY IMAGE SUPERVISION/INTERPRETATI ON [facility] Comment on above: LEFT HEART CATH INTRAPROCEDURAL INJECT W / LEFT VENTRICULOGRAPHY IMAGE SUPERVISION/INTERPRETATION Start: 11-29-2024 End: 11-29-2024 L hrt cath w/njx l ventriculography img s&i LEFT HEART CATH INTRAPROCEDURAL INJECT W/ LEFT VENTRICULOGRAPHY IMAGE SUPERVISION/INTERPRETATI ON Heart failure with preserved ejection fraction, unspecified HF chronicity (HCC) 11/29/2024 8:30 AM EDT [facility] Start: 11-29-2024 Subsequent hospital visit by physician 11/29/2024 8:30 AM EDT Hospital Encounter [facility] [employer] [address] [place] [address] Sukhdeep Patel MD [address] [place] [address] Heart failure with preserved ejection fraction, unspecified HF chronicity (HCC) [I50.30] [facility] Comment on above: Heart failure with preserved ejection fr action, unspecified HF chronicity (HCC) [I50.30] Start: 11-28-2024 End: 11-28-2024 ambulatory 11/28/2024 6:00 PM EDT Procedure [facility] [address] [place] [address] HYPERBARIC THERAPY [facility] Comment on above: HYPERBARIC THERAPY Start: 11-27-2024 End: 11-27-2024 ambulatory 11/27/2024 6:00 PM EDT Procedure [facility] [address] [place] [address] HYPERBARIC THERAPY [facility] Comment on above: HYPERBARIC THERAPY Start: 11-24-2024 End: 11-24-2024 ambulatory 11/24/2024 6:00 PM EDT Procedure [facility] [address] [place] [address] HYPERBARIC THERAPY [facility] Comment on above: HYPERBARIC THERAPY Start: 11-24-2024 End: 11-24-2024 Patient encounter procedure Plastic Surgery Comment on above: bilateral lower legs patient requires 160 minutes - bilateral lower legs Start: 11-23-2024 End: 11-23-2024 ambulatory 11/23/2024 6:00 PM EDT Procedure [facility] [address] [place] [address] HYPERBARIC THERAPY [facility] Comment on above: HYPERBARIC THERAPY Start: 11-22-2024 End: 11-22-2024 ambulatory 11/22/2024 6:00 PM EDT Procedure [facility] [address] [place] [address] HYPERBARIC THERAPY [facility] Comment on above: HYPERBARIC THERAPY Start: 11-21-2024 End: 11-21-2024 ambulatory 11/21/2024 6:00 PM EDT Procedure [facility] [address] [place] [address] HYPERBARIC THERAPY [facility] Comment on above: HYPERBARIC THERAPY Start: 11-20-2024 End: 11-20-2024 ambulatory 11/20/2024 6:00 PM EDT Procedure [facility] [address] [place] [address] HYPERBARIC THERAPY [facility] Comment on above: HYPERBARIC THERAPY Start: 11-17-2024 End: 11-17-2024 ambulatory 11/17/2024 6:00 PM EDT Procedure [facility] [address] [place] [address] HYPERBARIC THERAPY [facility] Comment on above: HYPERBARIC THERAPY Start: 11-17-2024 End: 11-17-2024 Patient encounter procedure 11/17/2024 3:30 PM EDT Office Visit Cardiology [address] [address] Shanel Newell, FINANCIAL REPORTING ANALYST.HEEL CURVER [address] [place] [address] follow up Cardiology Comment on above: follow up Start: 11-17-2024 End: 02-16-2025 Basic metabolic 2000 panel - Serum or Plasma BASIC METABOLIC PANEL Lab Routine Regional wall motion abnormality of heart Left ventricular systolic dysfunction Expected: 11/17/2024, Expires: 02/16/[address] [facility] Work Phone: Comment on above: Expected: 11/17/2024, Expires: Start: 11-17-2024 End: 02-16-2025 CBC panel - Blood by Automated count COMPLETE BLOOD COUNT Lab Routine Regional wall motion abnormality of heart Left ventricular systolic dysfunction Expected: 11/17/2024, Expires: 02/16/2025 [facility] Comment on above: Expected: 11/17/2024, Expires: Start: 11-17-2024 End: 02-16-2025 Lipid 1996 panel - Serum or Plasma LIPID PANEL BASIC Lab Routine Mixed hyperlipidemia Expected: 11/17/2024, Expires: 02/16/2025 [facility] Comment on above: Expected: 11/17/2024, Expires: Start: 11-17-2024 End: 11-17-2024 Patient encounter procedure 11/17/2024 10:30 AM EDT Office Visit Plastic Surgery [address] [place] [address] Hu Pickard DPM [address] [facility], [address] [place] [address] patient requires 160 minutes - bilateral lower legs Plastic Surgery Comment on above: patient requires 160 minutes - bilateral lower legs Start: 11-16-2024 End: 11-16-2024 ambulatory 11/16/2024 6:00 PM EDT Procedure [facility] [address] [place] [address] HYPERBARIC THERAPY [facility] Comment on above: HYPERBARIC THERAPY Start: 11-15-2024 End: 11-15-2024 ambulatory 11/15/2024 6:00 PM EDT Procedure [facility] [address] [place] [address] HYPERBARIC THERAPY [facility] Comment on above: HYPERBARIC THERAPY Start: 11-14-2024 End: 11-14-2024 ambulatory 11/14/2024 6:00 PM EDT Procedure [facility] [address] [place] [address] HYPERBARIC THERAPY [facility] Comment on above: HYPERBARIC THERAPY Start: 11-13-2024 End: 11-13-2024 ambulatory 11/13/2024 6:00 PM EDT Procedure [facility] [address] [place] [address] HYPERBARIC THERAPY [facility] Comment on above: HYPERBARIC THERAPY Start: 11-10-2024 End: 11-10-2024 Patient encounter procedure 11/10/2024 9:00 AM EST Office Visit Plastic Surgery [address] [place] [address] Hu Pickard, PABLITO [address] [address] bilateral lower legs Plastic Surgery Comment on above: bilateral lower legs Start: 10-27-2024 End: 10-27-2024 Patient encounter procedure Plastic Surgery Comment on above: bilateral lower legs patient reminded of appt - bilateral lower legs Start: 10-25-2024 End: 10-25-2024 Patient encounter procedure 10/25/2024 10:40 AM EST Office Visit Endocrinology [address] [address] Giovanni Cerrato MD [address] [place] [address], [address] [place] [address] 6 month follow up Endocrinology Comment on above: 6 month follow up Start: 10-05-2024 Hemoglobin A1c measurement HbA1C [facility] Start: 09-12-2024 End: 09-12-2024 Patient encounter procedure Cardiology Comment on above: 6 month follow up Start: 08-24-2024 End: 08-24-2024 ambulatory 08/24/2024 11:00 AM EST Visit (SP) Office [facility] [address] [place] [address] Alfredo Ureña MD [address] [address] 3 month exam [facility] Comment on above: 3 month exam Start: 08-17-2024 End: 08-17-2024 Patient encounter procedure 08/17/2024 1:00 PM EST Office Visit Plastic Surgery [address] [place] [address] Berny Reyes DPM [address] [place] [address] Bilateral Lower Leg Wounds-f/u from hospital visit Plastic Surgery Comment on above: Bilateral Lower Leg Wounds-f/u from hosp ital visit Start: 08-14-2024 End: 08-14-2024 Patient encounter procedure 08/14/2024 11:30 AM EST Office Visit Neurology [address] [address] Rodo Medrano APRN.HEEL CURVER [address] [place] [address] Return in about 4 months (around 01/12/2024). Neurology Comment on above: Return in about 4 months (around ). Start: 08-09-2024 Annual PCP Team Chronic Disease Visit Annual PCP Team Chronic Disease Visit [facility] Start: 08-09-2024 End: 08-09-2024 Patient encounter procedure 08/09/2024 9:30 AM EST Office Visit Plastic Surgery [address] [place] [address] Berny Reyes DPM [address] [place] [address] Bilateral Lower Leg Wounds-f/u from hospital visit Plastic Surgery Comment on above: Bilateral Lower Leg Wounds-f/u from hosp ital visit Start: 08-07-2024 End: 08-07-2024 Nursing evaluation of patient and report 08/07/2024 2:00 PM EST Nurse Visit [place] [address] [address] , Nurse Famp [facility] [address] [place] [address] Comment on above: b12 Start: 08-07-2024 End: 08-07-2024 Patient encounter procedure 08/07/2024 1:20 PM EST Office Visit [place] [address] [address] Eldon Gill [facility] [facility] [place] [address] wellness [facility] Comment on above: wellness Start: 07-27-2024 Diabetes: Urine Albumin-Creatinine Ratio for Kidney Health Diabetes: Urine Albumin-Creatinine Ratio for Kidney Health [facility] Start: 07-27-2024 Hepatitis B screening Urine Albumin:Creatinine Ratio [facility] Start: 07-27-2024 Hepatitis B surface antibody level LDL Cholesterol [facility] Start: 07-26-2024 End: 07-26-2024 Patient encounter procedure 07/26/2024 9:30 AM EST Office Visit Plastic Surgery [address] [place] [address] Berny Reyes DPM [address] [place] [address] Bilateral Lower Leg Wounds Plastic Surgery Comment on above: Bilateral Lower Leg Wounds Start: 07-25-2024 End: 10-24-2024 Lipid 1996 panel - Serum or Plasma LIPID PANEL BASIC Lab Routine Mixed hyperlipidemia Expected: 07/25/2024, Expires: 10/24/2024 [facility] Comment on above: Expected: 07/25/2024, Expires: Start: 07-25-2024 End: 10-24-2024 Microalbumin/Creatinine [Mass Ratio] in Urine ALBUMIN/CREATININE RATIO, URINE Lab Routine 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 Work Phone: Comment on above: Expected: 07/25/2024, Expires: Start: 07-22-2024 BP Controlled (<130/80) BP Controlled (<130/80) [facility] in Start: 07-20-2024 End: 07-20-2024 Patient encounter procedure 07/20/2024 1:00 PM EST Office Visit Plastic Surgery [address] [place] [address] Berny Reyes, PABLITO [address] [place] [address] Bilateral Lower Leg Wounds Plastic Surgery Comment on above: Bilateral Lower Leg Wounds Start: 07-19-2024 End: 07-19-2024 Patient encounter procedure 07/19/2024 1:00 PM EST Office Visit Urogynecology [address] [place] [place] [address] Hamlet Garay MD [address] [facility] [address] [place] [address] 3 month follow up Urogynecology Comment on above: 3 month follow up Start: 07-18-2024 End: 07-18-2024 Follow-up encounter 07/18/2024 3:15 PM EST Follow-Up [facility] at [address] [place] [id number] Hu Hawley, PT [facility] at [facility] Start: 07-11-2024 End: 10-10-2024 Basic metabolic 2000 panel - Serum or Plasma BASIC METABOLIC PANEL Lab Routine Chronic heart failure with preserved ejection fraction (HCC) Primary hypertension Expected: 07/11/2024, Expires: 10/10/[address] [facility] Work Phone: Comment on above: Expected: 07/11/2024, Expires: Start: 07-07-2024 End: 07-07-2024 Nursing evaluation of patient and report 07/07/2024 2:00 PM EDT Nurse Visit [place] [address] [address] , Nurse Famp [place] [address] [place] [address] b12 [facility] Comment on above: b12 Start: 07-07-2024 End: 07-07-2024 Patient encounter procedure 07/07/2024 1:00 PM EDT Office Visit Cardiology [address] [place] [address] Ayan Wallis, FINANCIAL REPORTING ANALYST.HEEL CURVER [address] [place] [address] IV Lasix Cardiology Comment on above: IV Lasix Start: 07-06-2024 End: 07-06-2024 Patient encounter procedure 07/06/2024 2:00 PM EDT Office Visit Plastic Surgery [address] [place] [address] Berny Reyes DPM [address] [place] [address] Bilateral Lower Leg Wounds Plastic Surgery Comment on above: Bilateral Lower Leg Wounds Start: 2024 End: 2024 Follow-up encounter 2024 2:30 PM EDT Follow-Up [facility] at [address] [place] [phone] Hu Hawley, PT [facility] at [facility] Start: 06-22-2024 End: 06-22-2024 Patient encounter procedure 06/22/2024 3:30 PM EDT Office Visit Plastic Surgery [address] [place] [address] Berny Reyes DPM [address] [place] [address] Bilateral Lower Leg Wounds Plastic Surgery Comment on above: Bilateral Lower Leg Wounds Start: 06-20-2024 End: 06-20-2024 ambulatory 06/20/2024 3:15 PM EDT Evaluation [facility] at [address] [place] [phone] Hu Hawley, PT [facility] Therapy at [facility] Start: 06-19-2024 End: 06-19-2024 Patient encounter procedure 06/19/2024 1:00 PM EDT Office Visit Neurology [address] [address] Rodo Medrano, RICH.HEEL CURVER [address] [place] [address] Return in about 4 months (around 01/12/2024). Neurology Comment on above: Return in about 4 months (around ). Start: 06-13-2024 End: 06-13-2024 ambulatory 06/13/2024 4:30 PM EDT OT/PT/Speech Visit [facility] [address] [place] [address] Isabella Whelan, PT [address] [facility] [place] [address] N32.81 (ICD-10-CM) - OAB (overactive bladder) [facility] Comment on above: N32.81 (ICD-10-CM) - OAB (overactive thiago dder) Start: 06-13-2024 End: 06-13-2024 Follow-up encounter 06/13/2024 3:15 PM EDT Follow-Up [facility] at [address] [place] [phone] Hu Hawley, PT [facility] at [facility] Start: 06-13-2024 End: 09-12-2024 Hemoglobin A1c in Blood HEMOGLOBIN A1C Lab Routine 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 Work Phone: Comment on above: Expected: 06/13/2024, Expires: Start: 06-13-2024 Hemoglobin A1c measurement HbA1C [facility] Start: 06-09-2024 End: 06-09-2024 Nursing evaluation of patient and report 06/09/2024 2:00 PM EDT Nurse Visit [place] [address] [address] , Nurse Famp [place] [address] [place] [address] b12 [facility] Comment on above: b12 Start: 06-09-2024 End: 06-09-2024 Patient encounter procedure 06/09/2024 1:00 PM EDT Office Visit Cardiology [address] [place] [address] Ayan Wallis, RICH.HEEL CURVER [address] [place] [address] I50.32 I10 E78.2 Cardiology Comment on above: I50.32 I10 E78.2 Start: 06-07-2024 End: 06-07-2024 Patient encounter procedure 06/07/2024 11:00 AM EDT Office Visit Plastic Surgery [address] [place] [address] Berny Reyes DPM [address] [place] [address] Bilateral Lower Leg Wounds Plastic Surgery Comment on above: Bilateral Lower Leg Wounds Start: 06-06-2024 End: 06-06-2024 Follow-up encounter 06/06/2024 3:15 PM EDT Follow-Up [facility] at [address] [place] [phone] Hu Hawley, PT [facility] at [facility] Start: 05-30-2024 End: 05-30-2024 Follow-up encounter 05/30/2024 3:15 PM EDT Follow-Up [facility] at [address] [place] [phone] Hu Hawley, PT [facility] at [facility] Start: 05-26-2024 Glaucoma screening Dilated Retinal Exam [facility] Start: 05-26-2024 Hepatitis C antibody, confirmatory test Dilated Retinal Exam [facility] Start: 05-25-2024 End: 05-25-2024 ambulatory 05/25/2024 10:00 AM EDT Visit (SP) Office [facility] [address] [place] [address] Alfredo Ureña MD [address] [address] 3 month exam [facility] Comment on above: 3 month exam Start: 05-24-2024 End: 05-24-2024 Patient encounter procedure 05/24/2024 10:30 AM EDT Office Visit Plastic Surgery [address] [place] [address] Berny Reyes [facility] [address] [place] [address] [address] [place] [address] Bilateral Lower Leg Wounds Plastic Surgery Comment on above: Bilateral Lower Leg Wounds Start: 05-10-2024 End: 05-10-2024 Patient encounter procedure 05/10/2024 10:30 AM EDT Office Visit Plastic Surgery [address] [place] [address] Berny Reyes, [facility] [address] [place] [address] [address] [place] [phone] Bilateral Lower Leg Wounds Plastic Surgery Comment on above: Bilateral Lower Leg Wounds Start: 05-09-2024 End: 05-09-2024 Nursing evaluation of patient and report 05/09/2024 2:00 PM EDT Nurse Visit [facility] [address] [facility] [address] [place] [address] , Nurse [place] [address] [place] [address] b12 [facility] Comment on above: b12 Start: 05-07-2024 Covid-19 Vaccine ( season) Covid-19 Vaccine ( season) [facility] Start: 05-07-2024 Covid-19 Vaccine () Covid-19 Vaccine () [facility] Start: 05-07-2024 Influenza vaccination [facility] Start: 04-26-2024 End: 04-26-2024 Patient encounter procedure [employer] [facility] Comment on above: urinary incontinence Left message on home phone regarding location changeurinary incontinence Bilateral Lower Leg Wounds Start: 04-17-2024 End: 04-17-2024 Patient encounter procedure 04/17/2024 11:00 AM EDT Office Visit Endocrinology [address] [facility] [address] [place] [address] [facility]ato [facility] [facility] [address] [place] [address] 6 month follow up Endocrinology Comment on above: 6 month follow up Start: 04-12-2024 End: 04-12-2024 Patient encounter procedure 04/12/2024 11:00 AM EDT Office Visit Plastic Surgery [address] [place] [address] Berny Reyes DPM [address] [place] [address] Bilateral Lower Leg Wounds Plastic Surgery Comment on above: Bilateral Lower Leg Wounds Start: 04-06-2024 BP CONTROLLED (<130/80) BP CONTROLLED (<130/80) [facility] Start: 04-06-2024 End: 04-06-2024 Nursing evaluation of patient and report 04/06/2024 2:00 PM EDT Nurse Visit [facility] [address] [address] Mc, Nurse Famp [place] [address] [place] [address] b12 [facility] Comment on above: b12 Start: 04-05-2024 End: 04-05-2024 Patient encounter procedure 04/05/2024 11:00 AM EDT Office Visit Vascular Surgery [address] [address] PVD (peripheral vascular disease) (HCC) [I73.9] Vascular Surgery Comment on above: PVD (peripheral vascular disease) (HCC) [I73.9] Start: 03-30-2024 End: 03-30-2024 Patient encounter procedure 03/30/2024 2:30 PM EDT Office Visit Vascular Surgery [address] [address] PVD (peripheral vascular disease) (HCC) [I73.9] Vascular Surgery Comment on above: PVD (peripheral vascular disease) (HCC) [I73.9] Start: 03-29-2024 End: 03-29-2024 Patient encounter procedure 03/29/2024 10:30 AM EDT Office Visit Plastic Surgery [address] [place] [address] Berny Reyes DP [address] [place] [address] Bilateral Lower Leg Wounds Plastic Surgery Comment on above: Bilateral Lower Leg Wounds Start: 03-15-2024 End: 03-15-2024 Patient encounter procedure 03/15/2024 10:30 AM EDT Office Visit Plastic Surgery [address] [place] [address] Berny Reyes, [facility] [address] [place] [address] Bilateral Lower Leg Wounds Plastic Surgery Comment on above: Bilateral Lower Leg Wounds Start: 03-13-2024 End: 03-13-2024 Patient encounter procedure 03/13/2024 2:00 PM EDT Office Visit Plastic Surgery [address] [place] [address] Hu Pickard, PABLITO [address] [facility], [address] [place] [address] possible cellulitus per patient and leg is hurting Plastic Surgery Comment on above: possible cellulitus per patient and leg is hurting Start: 03-11-2024 BP CONTROLLED (<130/80) BP CONTROLLED (<130/80) [facility] in Start: 03-06-2024 End: 03-06-2024 Patient encounter procedure 03/06/2024 3:30 PM EDT Office Visit Cardiology [address] [address] Shanel Newell, FINANCIAL REPORTING ANALYST.HEEL CURVER [address] [place] [address] 3 mo f/u w/ Shanel Newell Cardiology Comment on above: 3 mo f/u w/ Shanel Newell Start: 03-06-2024 End: 03-06-2024 Nursing evaluation of patient and report 03/06/2024 3:00 PM EDT Nurse Visit [facility] [address] [address] , Nurse [place]amp [place] [address] [place] [address] b12 [facility] Comment on above: b12 Start: 03-05-2024 Influenza vaccination Influenza Vaccine (#1) [facility] Comment on above: Postponed from 05/07/2023 (Declined at t his time) Start: 03-01-2024 End: 05-31-2024 Prealbumin [Mass/volume] in Serum or Plasma PREALBUMIN Lab Routine PVD (peripheral vascular disease) (HCC) Expected: 03/01/2024, Expires: 05/31/2024 [facility] Comment on above: Expected: 03/01/2024, Expires: Start: 02-28-2024 End: 02-28-2024 Patient encounter procedure 02/28/2024 1:00 PM EDT Office Visit Neurology [address] [facility] [address] [place] [address] Rodo Medrano APRN.HEEL CURVER [address] [facility] [place] [address] Return in about 4 months (around 01/12/2024). Neurology Comment on above: Return in about 4 months (around ). 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 Work Phone: Comment on above: Expected: 02/09/2024, Expires: Start: 02-09-2024 End: 02-09-2024 Patient encounter procedure 02/09/2024 2:00 PM EDT Office Visit Family Medicine [facility] [address] [address] Eldon Gill DO [address] [place] [address] / [place] [address] 6 month follow up [facility] Comment on above: 6 month follow up Start: 02-08-2024 End: 02-08-2024 Nursing evaluation of patient and report 02/08/2024 2:00 PM EDT Nurse Visit Family [place] [address] [address] , Nurse Famp [place] [address] [place] [address] b12 [facility] [place] Comment on above: b12 Start: 02-06-2024 ANNUAL PCP TEAM CHRONIC DISEASE VISIT ANNUAL PCP TEAM CHRONIC DISEASE VISIT [facility] Start: 02-06-2024 BP CONTROLLED (<130/80) BP CONTROLLED (<130/80) [facility] Start: 01-05-2024 Hemoglobin A1c measurement HbA1C [facility] Start: 12-17-2023 End: 03-17-2024 Basic metabolic 2000 panel - Serum or Plasma BASIC METABOLIC PANEL Lab Routine Chronic heart failure with preserved ejection fraction (HCC) Primary hypertension Mixed hyperlipidemia Expected: 12/17/2023, Expires: 03/17/[address] [facility] Work Phone: Comment on above: Expected: 12/17/2023, Expires: 4 Start: 12-17-2023 End: 03-17-2024 Natriuretic peptide.B prohormone N-Terminal [Mass/volume] in Serum or Plasma NT PRO BNP Lab Routine Chronic heart failure with preserved ejection fraction (HCC) Primary hypertension Mixed hyperlipidemia Expected: 12/17/2023, Expires: 03/17/[address] [facility] Work Phone: Comment on above: Expected: 12/17/2023, Expires: 4 Start: 12-14-2023 Hemoglobin A1c/Hemoglobin.total in Blood HbA1C [facility] Start: 11-08-2023 Hemoglobin A1c measurement HbA1C [facility] Start: 11-08-2023 Hemoglobin A1c/Hemoglobin.total in Blood HbA1C [facility] Start: 09-26-2023 ANNUAL PCP TEAM CHRONIC DISEASE VISIT ANNUAL PCP TEAM CHRONIC DISEASE VISIT [facility] Start: 09-26-2023 BP CONTROLLED (<130/80) BP CONTROLLED (<130/80) [facility] Start: 09-23-2023 3 comp foot exam completed DIABETIC FOOT EXAM [facility] Start: 09-23-2023 Diabetic foot examination Diabetic Foot Exam [facility] Start: 09-15-2023 Mammography [facility] Start: 09-15-2023 Screening for malignant neoplasm of breast [facility] Start: 08-21-2023 Hepatitis B screening URINE ALBUMIN:CREATININE RATIO [facility] Start: 08-20-2023 ANNUAL PCP TEAM CHRONIC DISEASE VISIT ANNUAL PCP TEAM CHRONIC DISEASE VISIT [facility] Start: 08-15-2023 Hepatitis B surface antibody level LDL CHOLESTEROL [facility] Start: 08-07-2023 Hemoglobin A1c/Hemoglobin.total in Blood HBA1C [facility] Start: 07-15-2023 ANNUAL PCP TEAM CHRONIC DISEASE VISIT ANNUAL PCP TEAM CHRONIC DISEASE VISIT [facility] Start: 07-15-2023 COVID-19 VACCINE (#1) COVID-19 VACCINE (#1) [facility] Comment on above: Postponed from 01/02/1961 (Declined at t his time) Start: 05-21-2023 BP CONTROLLED (<130/80) BP CONTROLLED (<130/80) [facility] Start: 05-07-2023 Covid-19 Vaccine () Covid-19 Vaccine () [facility] Start: 05-07-2023 Influenza vaccination [facility] Start: 05-04-2023 BP CONTROLLED (<130/80) BP CONTROLLED (<130/80) [facility] Start: 04-29-2023 Hepatitis C antibody, confirmatory test DILATED RETINAL EXAM [facility] Start: 04-27-2023 Hemoglobin A1c/Hemoglobin.total in Blood HBA1C [facility] Start: 04-22-2023 BP CONTROLLED (<130/80) BP CONTROLLED (<130/80) [facility] Start: 04-06-2023 End: 06-06-2023 Hepatic function 2000 panel - Serum or Plasma HEPATIC FUNCTION PNL Lab Routine Mixed hyperlipidemia Expected: 04/06/2023 (Approximate), Expires: 06/06/[address] [facility] Work Phone: Comment on above: Expected: 04/06/2023 (Approximate), Expi res: 06/06/2023 Start: 04-06-2023 End: 06-06-2023 Lipid 1996 panel - Serum or Plasma LIPID PANEL BASIC Lab Routine Mixed hyperlipidemia Expected: 04/06/2023, Expires: 06/06/[address] [facility] Work Phone: Comment on above: Expected: 04/06/2023, Expires: 3 Start: 04-02-2023 SHINGRIX VACCINE (2 of 2) SHINGRIX VACCINE (2 of 2) [facility] Start: 03-12-2023 Lipid panel Lipid Panel [facility] Start: 03-10-2023 End: 05-10-2023 Basic metabolic 2000 panel - Serum or Plasma BASIC METABOLIC PNL Lab Routine Chronic diastolic congestive heart failure (HCC) Expected: 03/10/2023, Expires: 05/10/[address] [facility] Work Phone: Comment on above: Expected: 03/10/2023, Expires: Start: 03-05-2023 Influenza vaccination INFLUENZA (#1) [facility] Comment on above: Postponed from 05/07/2022 (Declined at t his time) Start: 02-23-2023 BP CONTROLLED (<130/80) BP CONTROLLED (<130/80) [facility] Start: 02-08-2023 End: 04-10-2023 25-hydroxyvitamin D3 [Mass/volume] in Serum or Plasma VITAMIN D 25 HYDROXY Lab Routine Vitamin D deficiency Expected: 02/08/2023, Expires: 04/10/[address] [facility] Work Phone: Comment on above: Expected: 02/08/2023, Expires: 3 Start: 02-08-2023 End: 04-10-2023 Ferritin [Mass/volume] in Serum or Plasma FERRITIN BLD Lab Routine Iron deficiency Expected: 02/08/2023, Expires: 04/10/[address] [facility] Work Phone: Comment on above: Expected: 02/08/2023, Expires: 3 Start: 02-08-2023 End: 04-10-2023 Iron and Iron binding capacity panel - Serum or Plasma IRON + TIBC Lab Routine Iron deficiency Expected: 02/08/2023, Expires: 04/10/[address] 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 Work Phone: Comment on above: Expected: 09/23/2022, Expires: 3 Start: 09-23-2022 End: 11-23-2022 Parietal cell Ab [Presence] in Serum GASTRIC PARIETAL CELL IGG SERUM Lab Routine B12 deficiency Expected: 09/23/2022, Expires: 11/23/[address] [facility] Work Phone: Comment on above: Expected: 09/23/2022, Expires: 3 Start: 09-19-2022 Hepatitis B screening URINE ALBUMIN:CREATININE RATIO [facility] Start: 09-19-2022 Hepatitis B surface antibody level LDL CHOLESTEROL [facility] Start: 08-20-2022 End: 10-20-2022 CBC W Ordered Manual Differential panel - Blood PATHOLOGIST INTERPRETATION WITH CBC AND DIFF Lab Routine Other specified nutritional anemias Expected: 08/20/2022 (Approximate), Expires: 10/20/[address] [facility] Work Phone: Comment on above: Expected: 08/20/2022 (Approximate), Expi res: 10/20/2022 Start: 08-20-2022 End: 10-20-2022 Cobalamin (Vitamin B12) [Mass/volume] in Serum or Plasma VITAMIN B12 BLOOD Lab Routine Other specified nutritional anemias Expected: 08/20/2022 (Approximate), Expires: 10/20/[address] [facility] Work Phone: Comment on above: Expected: 08/20/2022 (Approximate), Expi res: 10/20/2022 Start: 08-20-2022 End: 10-20-2022 Comprehensive metabolic 2000 panel - Serum or Plasma COMP METABOLIC PANEL Lab Routine Other specified nutritional anemias Expected: 08/20/2022 (Approximate), Expires: 10/20/[address] [facility] Work Phone: Comment on above: Expected: 08/20/2022 (Approximate), Expi res: 10/20/2022 Start: 08-20-2022 End: 10-20-2022 Ferritin [Mass/volume] in Serum or Plasma FERRITIN BLD Lab Routine Other specified nutritional anemias Expected: 08/20/2022 (Approximate), Expires: 10/20/[address] [facility] Work Phone: Comment on above: Expected: 08/20/2022 (Approximate), Expi res: 10/20/2022 Start: 08-20-2022 End: 10-20-2022 FOLIC ACID RBC FOLIC ACID RBC Lab Routine Other specified nutritional anemias Expected: 08/20/2022 (Approximate), Expires: 10/20/[address] [facility] Work Phone: Comment on above: Expected: 08/20/2022 (Approximate), Expi res: 10/20/2022 Start: 08-20-2022 End: 10-20-2022 Iron and Iron binding capacity panel - Serum or Plasma IRON + TIBC Lab Routine Other specified nutritional anemias Expected: 08/20/2022 (Approximate), Expires: 10/20/[address] [facility] Work Phone: Comment on above: Expected: 08/20/2022 (Approximate), Expi res: 10/20/2022 Start: 08-20-2022 End: 10-20-2022 Microalbumin [Mass/volume] in Urine ALBUMIN RANDOM URINE Lab Routine Hypertension, essential Expected: 08/20/2022, Expires: 10/20/[address] [facility] Work Phone: Comment on above: Expected: 08/20/2022, Expires: Start: 08-20-2022 End: 10-20-2022 RETIC COUNT RETIC COUNT Lab Routine Other specified nutritional anemias Expected: 08/20/2022 (Approximate), Expires: 10/20/[address] [facility] Work Phone: Comment on above: Expected: 08/20/2022 (Approximate), Expi res: 10/20/2022 Start: 08-20-2022 End: 10-20-2022 Thyrotropin [Units/volume] in Serum or Plasma TSH BLD Lab Routine Other specified nutritional anemias Expected: 08/20/2022 (Approximate), Expires: 10/20/[address] [facility] Work Phone: Comment on above: Expected: 08/20/2022 (Approximate), Expi res: 10/20/2022 Start: 08-20-2022 End: 10-20-2022 Transferrin [Mass/volume] in Serum or Plasma TRANSFERRIN BLD Lab Routine Other specified nutritional anemias Expected: 08/20/2022, Expires: 10/20/[address] [facility] Work Phone: Comment on above: Expected: 08/20/2022, Expires: Start: 08-04-2022 End: 10-04-2022 Lipid 1996 panel - Serum or Plasma LIPID PANEL BASIC Lab Routine Mixed hyperlipidemia Expected: 08/04/2022, Expires: 10/04/[address] [facility] Work Phone: Comment on above: Expected: 08/04/2022, Expires: 3 Start: 08-04-2022 End: 10-04-2022 SCHEDULE LAB TESTING SCHEDULE LAB TESTING Lab Routine Expected: 08/04/2022, Expires: 10/04/[address] [facility] Work Phone: Comment on above: Expected: 08/04/2022, Expires: 3 Start: 06-23-2022 Hemoglobin A1c/Hemoglobin.total in Blood HBA1C [facility] Start: 06-16-2022 VIRFUVELFEGO, Provider: Nilsa Hearn, Status: Pen, Time: 4:40 PM VIRFUVELFEGO, Provider: Nilsa Hearn, Status: Pen, Time: 4:40 PM EI-Kubsqdsygx-Pjuub Work Phone: Start: 05-07-2022 VIRFUVNTCH, Provider: Sonali Fenton, Status: Pen, Time: 4:30 PM VIRFUVNTCH, Provider: Sonali Fenton, Status: Pen, Time: 4:30 PM XS-Uukdvetsru-Alyug Work Phone: Start: 05-07-2022 Influenza vaccination [facility] Start: 04-22-2022 End: 06-22-2022 Basic metabolic 2000 panel - Serum or Plasma BASIC METABOLIC PNL Lab Routine Chronic heart failure with preserved ejection fraction (HCC) Primary hypertension Mixed hyperlipidemia Expected: 04/22/2022, Expires: 06/22/[address] [facility] Work Phone: Comment on above: Expected: 04/22/2022, Expires: 2 Start: 04-22-2022 End: 06-22-2022 Natriuretic peptide.B prohormone N-Terminal [Mass/volume] in Serum or Plasma NT PRO BNP Lab Routine Chronic heart failure with preserved ejection fraction (HCC) Primary hypertension Mixed hyperlipidemia Expected: 04/22/2022, Expires: 06/22/[address] [facility] Work Phone: Comment on above: Expected: 04/22/2022, Expires: 2 Start: 04-16-2022 EPV, Provider: Kiel Garbiay, Status: Pen, Time: 1:15 PM EPV, Provider: Kiel Garibay, Status: Pen, Time: 1:15 PM [facility]-Bkbmfskyxs-Txwec Work Phone: Start: 04-10-2022 Hepatitis C antibody, confirmatory test DILATED RETINAL EXAM [facility] Start: 03-19-2022 VIRNPVCIN, Provider: Nilsa Hearn, Status: Pen, Time: 3:40 PM VIRNPVCIN, Provider: Nilsa Hearn, Status: Pen, Time: 3:40 PM [facility] Work Phone: Start: 03-05-2022 EPV, Provider: Kiel Garibay, Status: Pen, Time: 2:30 PM EPV, Provider: Kiel Garibay, Status: Pen, Time: 2:30 PM [id number][id number] Work Phone: Start: 02-24-2022 NPV, Provider: Edi Patino, Status: Pen, Time: 1:00 PM NPV, Provider: Edi Patino, Status: Pen, Time: 1:00 PM [facility] Work Phone: Start: 02-19-2022 ECHO, Provider: MICHAEL HHVI,MG CARD, Status: Pen, Time: 3:00 PM ECHO, Provider: RODRIGUEZ HHVI,MG CARD, Status: Pen, Time: 3:00 PM [id number]-[id number]-[id number] Work Phone: Start: 12-18-2021 Hemoglobin A1c/Hemoglobin.total in Blood HBA1C [facility] Start: 09-26-2021 FUV, Provider: Alvina Sullivan, Status: Pen, Time: 2:45 PM FUV, Provider: Alvina Sullivan, Status: Pen, Time: 2:45 PM [facility] Work Phone: Start: 2020 Hepatitis B Vaccine (1 of 3 - Risk 3-dose series) Hepatitis B Vaccine (1 of 3 - Risk 3-dose series) [facility] Start: 2020 RSV Immunization aged 60 or older (1 - 1-dose 60+ series) RSV Immunization aged 60 or older (1 - 1-dose 60+ series) [facility] Start: 2020 RSV Immunization for Adults (1 - Risk 60-74 years 1-dose series) RSV Immunization for Adults (1 - Risk 60-74 years 1-dose series) [facility] Start: 2020 RSV Vaccine (1 - 1-dose 60+ series) RSV Vaccine (1 - 1-dose 60+ series) [facility] Start: 2020 RSV Vaccine (1 - Risk 60-74 years 1-dose series) RSV Vaccine (1 - Risk 60-74 years 1-dose series) [facility] Start: 05-07-2020 Influenza vaccination Flu vaccine (#1) [place], [place] Start: 12-10-2019 Mammography MAMMOGRAM [facility] Start: 01-01-2018 PAP TESTING PAP TESTING [facility] Start: 2010 Screening for malignant neoplasm of breast Breast cancer screen [place], [place] Start: 2010 Screening for malignant neoplasm of colon Colon cancer screen colonoscopy [place], [place] Start: 2010 Shingles Vaccine (1 of 2) Shingles Vaccine (1 of 2) [place], [place] Start: 2010 SHINGRIX VACCINE (1 of 2) SHINGRIX VACCINE (1 of 2) [facility] Start: 2005 COLOGUARD (FIT-DNA) COLOGUARD (FIT-DNA) [facility] Start: 2005 Colonoscopy COLONOSCOPY [facility] Start: 2005 COLORECTAL CANCER SCREENING COLORECTAL CANCER SCREENING [facility] Start: [address] COLONOGRAPHY [facility] Start: 2005 FECAL OCCULT BLOOD FECAL OCCULT BLOOD [facility] Start: 2005 Screening for malignant neoplasm of colon [facility] Start: 2005 SIGMOIDOSCOPY SIGMOIDOSCOPY [facility] Start: 1990 HPV TESTING HPV TESTING [facility] Start: 1990 Screening for malignant neoplasm of cervix HPV/Cotest [facility] Start: 1981 Screening for malignant neoplasm of cervix Cervical cancer screen [place], [place] Start: 1979 Urine microalbumin profile DTAP,TDAP,TD (1 - Tdap) [facility] Start: 1978 ANNUAL PCP TEAM CHRONIC DISEASE VISIT ANNUAL PCP TEAM CHRONIC DISEASE VISIT [facility] Start: 1978 Anxiety Screening Anxiety Screening [facility] Start: 1978 BP CONTROLLED (<130/80) BP CONTROLLED (<130/80) [facility] in Start: 1978 Depression Screening Depression Screening [facility] Start: 1978 Diabetes: Estimated Glomerular Filtration Rate for Kidney Health Diabetes: Estimated Glomerular Filtration Rate for Kidney Health [facility] Start: 1978 HEPATITIS C SCREENING HEPATITIS C SCREENING [facility] Start: 1978 Hepatitis C screening Hepatitis C Screening [facility] Start: 1978 HIV SCREENING HIV SCREENING [facility] Start: 1976 ONE PNEUMOVAX PRIOR TO AGE 65 ONE PNEUMOVAX PRIOR TO AGE 65 [facility] Start: 1975 HIV screening HIV screen [place], [place] Start: 1972 Depression Monitoring Depression Monitoring [facility] Start: 1972 Depression Screening Depression Screening [facility] Start: 1970 Diabetic foot examination Diabetes: Foot Exam [facility] Start: 1970 Glaucoma screening Diabetes: Retinopathy Screening [facility] Start: 1970 Lipid panel Lipid screen [place], [place] Start: 1970 Preventive dental service Diabetes: Dental Exam [facility] Start: 1966 PNEUMOCOCCAL (1 - PCV) PNEUMOCOCCAL (1 - PCV) [facility] Start: 1965 COVID-19 VACCINE (#1) COVID-19 VACCINE (#1) [facility] Start: 1965 COVID-19 VACCINE (1) COVID-19 VACCINE (1) [facility] Start: 1961 MMR Vaccines (1 of 1 - Standard series) MMR Vaccines (1 of 1 - Standard series) [facility] Start: 01-02-1961 COVID-19 VACCINE (#1) COVID-19 VACCINE (#1) [facility] Start: 1960 Creatinine measurement Creatinine monitoring [place], [place] Start: 1960 Hepatitis C screening Hepatitis C screen [place], [place] Start: 1960 HIV screening HIV Screening [facility] Start: 1960 Potassium monitoring Potassium monitoring [place], [place] Start: 1960 Screening for malignant neoplasm of colon [facility] Bacteria identified in Urine by Culture URINE CULTURE Microbiology Routine Hematuria, unspecified type 02/08/2023 2:17 PM T [facility] Work Phone: Bacteria identified in Wound by Culture WOUND CULTURE AND GRAM STAIN Microbiology Routine Wound infection 01/13/2022 8:59 AM T [facility] Work Phone: Bacteria identified in Wound by Culture ABSCESS AND WOUND CULTURE WITH GRAM STAIN Microbiology Routine Infection 11/26/2022 10:46 AM T [facility] Work Phone: Bacteria identified in Wound by Culture ABSCESS AND WOUND CULTURE WITH GRAM STAIN Microbiology Routine Wound infection 10/07/2023 1:11 PM Task Messenger [facility] Work Phone: Bacteria identified in Wound by Culture ABSCESS AND WOUND CULTURE WITH GRAM STAIN Microbiology Routine Wound infection 07/26/2024 10:21 AM [facility] Work Phone: Bacteria identified in Wound by Culture BACTERIAL CULTURE AND GRAM STAIN, ABSCESS AND WOUND (AEROBIC CULTURE) Microbiology Routine Wound infection 11/27/2024 3:26 PM Dextr [facility] Work Phone: BACTERIAL VAGINOSIS NAAT BACTERI AL VAGINOSIS NAAT Lab Routine Acute vaginitis 04/26/2024 3:06 PM [facility] Biopsy bone open superficial BIOPSY BONE OPEN; SUPERFICIAL LOWER EXTREMITY Non-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, 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, 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) ME OR EMMY/TRICHOMONAS NAAT EMMY /TRICHOMONAS NAAT Lab Routine Acute vaginitis 04/26/2024 3:[address] [facility] Work Phone: Dbrdmt subcutaneous tissue ea addl 20 sq cm DEBRIDEMENT SUBCUTANEOUS TISSUE FOOT EACH ADDITIONAL 20 SQ CM Non-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, 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, 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) ME OR End: 11-25-2024 DBT Breast - bilateral screening VALENTINO SCREENING W [facility] Radiology Routine Encounter for screening mammogram for breast cancer 1 Occurrences starting 10/27/2023 until 11/25/[address] [facility] Work Phone: Comment on above: 1 Occurrences starting 10/27/2023 until 11/25/2024 End: 10-26-2025 DBT Breast - bilateral screening VALENTINO SCREENING W [facility]DEL[facility] Radiology Routine Encounter for screening mammogram for breast cancer 1 Occurrences starting 09/26/2024 until 10/26/[address] [facility] Work Phone: Comment on above: 1 Occurrences starting 09/26/2024 until 10/26/2025 Debridement bone eac h additional 20 sq cm DEBRIDEMENT BONE LOWER EXTREMITY EACH ADDITIONAL 20 SQ CM OR PART THEREOF Non-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, 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, 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) ME OR Debridement muscle & fascia 20 sq cm/< DEBRIDEMENT MUSCLE/FASCIA FIRST 20 SQ CM OR LESS LOWER EXTREMITY Non-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, 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, 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) ME OR Debridement subcutan eous tissue 20 sq cm/< DEBRIDEMENT SUBCUTANEOUS TISSUE FIRST 20 SQ CM OR LESS LOWER EXTREMITY Non-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, 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, 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) ME OR End: 04-22-2023 ECG COMPLETE ECG COMPLETE ECG Routine Chronic heart failure with preserved ejection fraction (HCC) 1 Occurrences starting 04/22/2022 until 04/22/[address] [facility] Work Phone: Comment on above: 1 Occurrences starting 04/22/2022 until 04/22/2023 End: 06-30-2025 Echocardiography ECHO Cardiology Routine Chronic heart failure with preserved ejection fraction (HCC) 1 Occurrences starting 06/30/2024 until 06/30/[address] [facility] Work Phone: Comment on above: 1 Occurrences starting 06/30/2024 until 06/30/2025 Incision & drainage leg/ankle abscess/hematoma INCISION AND DRAINAGE ABSCESS LEG OR ANKLE Non-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, 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, 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) ME OR L hrt cath w/njx l ventriculography img s&i LEFT HEART CATH INTRAPROCEDURAL INJECT W/ LEFT VENTRICULOGRAPHY IMAGE SUPERVISION/INTERPRETATI ON Heart failure with preserved ejection fraction, unspecified HF chronicity (HCC) [place] [employer]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 Work Phone: Negative pressure wo und therapy dme <= 50 sq cm APPLICATION WOUND VAC EXTREMITY LOWER TOTAL WOUND SURFACE LESS THAN 50 SQ [facility] Non-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, 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, 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) ME OR Negative pressure wo und therapy dme >50 sq cm APPLICATION WOUND VAC EXTREMITY LOWER TOTAL WOUND SURFACE GREATER THAN 50 SQ [facility] Non-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, 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, 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) ME OR End: 05-22-2023 NM CARDIAC PERF STRESS/PHARM NM CARDIAC PERF STRESS/PHARM Radiology Routine Chronic heart failure with preserved ejection fraction (HCC) Primary hypertension Mixed hyperlipidemia 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 Work Phone: Comment on above: 1 Occurrences starting 04/22/2022 until 05/22/2023 End: 01-28-2024 NM CARDIAC PERF STRESS/PHARM NM CARDIAC PERF STRESS/PHARM Radiology Routine Chronic heart failure with preserved ejection fraction (HCC) 1 Occurrences starting 12/29/2022 until 01/28/[address] [facility] Work Phone: Comment on above: 1 Occurrences starting 12/29/2022 until 01/28/2024 NM CARDIAC PERF STRESS/PHARM NM CARDIAC PERF STRESS/PHARM Radiology Routine Chronic heart failure with preserved ejection fraction (HCC) 01/05/2023 9:30 AM EDT 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 Work Phone: Comment on above: 1 Occurrences starting 04/22/2022 until 04/22/2023 End: 12-16-2022 PVR LEG [facility] PVR LEG [facility] Vascular Lab Routine PVD (peripheral vascular disease) ([facility]) Venous stasis ulcer of ankle limited to breakdown of skin, unspecified laterality, 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 varicose veins present ([facility]) 1 Occurrences starting 12/16/2021 until 12/16/[address] [facility] Work Phone: Comment on above: 1 Occurrences starting 12/16/2021 until 12/16/2022 End: 08-20-2023 Screening colonoscopy COLONOSCOPY SCREENING Endoscopy Routine Screening for colon cancer 1 Occurrences starting 08/20/2022 until 08/20/[address] [facility] Work Phone: Comment on above: 1 Occurrences starting 08/20/2022 until 08/20/2023 End: 02-08-2025 Screening colonoscopy COLONOSCOPY SCREENING Endoscopy Routine Screening for colon cancer 1 Occurrences starting 02/09/2024 until 02/08/2025 [facility] Comment on above: 1 Occurrences starting 02/09/2024 until 02/08/2025 SURGICAL PATHOLOGY SURGICAL PATH OLOGY Lab Routine PMB (postmenopausal bleeding) 07/15/2023 9:37 AM EST [facility] Work Phone: End: 03-01-2025 US Lower extremity artery - bilateral PVR LEG [facility] Vascular Lab Routine PVD (peripheral vascular disease) ([facility]) 1 Occurrences starting 03/01/2024 until 03/01/[address] [facility] Work Phone: Comment on above: 1 Occurrences starting 03/01/2024 until 03/01/2025 End: 12-16-2022 US VENOUS INCOMPETENCY [facility] US VENOUS INCOMPETENCY [facility] Vascular Lab Routine PVD (peripheral vascular disease) (HCC) Venous stasis ulcer of ankle limited to breakdown of skin, unspecified laterality, 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 varicose veins present (HCC) 1 Occurrences starting 12/16/2021 until 12/16/[address] [facility] Work Phone: Comment on above: 1 Occurrences starting 12/16/2021 until 12/16/2022 End: 12-16-2023 XR FOOT GENERAL 3V AP/LAT/OBL RIGHT XR FOOT GENERAL 3V AP/LAT/OBL RIGHT Radiology Routine PVD (peripheral vascular disease) (HCC) Ulcer of right foot with fat layer exposed (HCC) Amputation of right great toe (HCC) Traumatic amputation of second toe of right foot, subsequent encounter (HCC) Right foot ulcer, 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) 1 Occurrences starting 11/16/2022 until 12/16/[address] [facility] Work Phone: Comment on above: 1 Occurrences starting 11/16/2022 until 12/16/2023 End: 11-23-2022 XR FOOT GENERAL 3V AP/LAT/OBL RIGHT [facility] Work Phone: Comment on above: 1 Occurrences starting 11/23/2022 until 11/23/2022 [facility] [place] [facility] c [facility] c [facility] Immunizations Immunization Date Immunization Notes Care Provider [facility] 05-04-2023 zoster vaccine recombinant Nurse Loja Work Phone: [facility] 02-05-2023 zoster vaccine recombinant Eldon Gill DO Work Phone: [facility] 07-15-2022 pneumococcal (PCV20) vaccine, 20 valent (PREVNAR 20) Eldon Gill DO Work Phone: [facility] 05-20-2018 tetanus toxoid, redu obi diphtheria toxoid, and acellular pertussis vaccine, adsorbed Flex Hutson [facility] 03-22-2012 tetanus toxoid, redu obi diphtheria toxoid, and acellular pertussis vaccine, adsorbed Alvina Sullivan Work Phone: [facility] Comment on above: Series: 09-06-1988 tetanus and diphther ia toxoids, adsorbed, preservative free, for adult use (2 Lf of tetanus toxoid and 2 Lf of diphtheria toxoid) Alvina Sullivan Work Phone: [facility] Work Phone: Comment on above: Series: Payers Date Payer Category Payer Self-pay 2022 Commercial Managed C are - [facility] [id number] 2019 Private Health Insurance 2019 Private Health Insurance [facility] CHOICE PLUS [id number] 2019-Present [phone] [id number] [place], [place] [id number] [address] [id number] 2019 Unknown [id number] 1960 Unknown [id number] [id number] .2.278 1960 Unknown [id number] [id number] .2.356 1960 Unknown [id number] 2.16840.1.383278.3.579 .2.356 1960 Unknown [id number] [id number] .2.356 1960 Unknown [id number] 2.840.1.132494.3.579 .2.356 1960 Unknown [id number] 2..840.1.807423.3.579 .2.356 1960 Unknown [id number] 2..840.1.782666.3.579 .2.356 1960 Unknown [id number] 2.16.840.1.698341.3.579 .2.356 1960 Unknown [id number] 2.840.1.141032.3.579 .2.356 Unknown [facility] Unknown [id number] [id number] .2.462 Unknown [id number] 2.16.840.1.588085.3.579 .2.462 Unknown [id number] 2.16.840.1.035765.3.579 .2.462 Unknown [id number] 2.16840.1.052462.3.579 .2.462 Unknown [id number] 2.16840.1.046722.3.579 .2.462 Unknown [id number] 2.16.840.1.925596.3.579 .2.462 Unknown [id number] 2.16.840.1.306315.3.579 .2.462 Unknown [id number] 2.16.840.1.521882.3.579 .2.462 Unknown [id number] 2.16.840.1.170734.3.579 .2.462 Unknown [id number] 2.16840.1.331578.3.579 .2.462 Unknown [id number] 2.16840.1.579088.3.579 .2.462 Unknown [id number] [id number] .2.462 Worker's Compensation Social History Date Type Detail Facility Start: 05-20-2018 End: 10-07-2023 Tobacco smoking status MSIS Never smoker [facility] Start: 05-20-2018 End: 10-07-2023 Tobacco use and exposure Never used [facility] [facility] Start: 05-20-2018 End: 05-23-2024 Alcohol intake Current non-drinker of alcohol (finding) [facility] Start: 1960 Sex Assigned At Not on file M sunni [employer]JERA Start: 03-02-2023 End: 12-21-2024 Occupation: Occupation: [facility] Comment on above: 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 [employer]; Start: 12-06-2021 End: 07-15-2022 Exposure to SARS-CoV-2 (event) Not sure [facility] Start: 09-26-2022 End: 10-27-2024 Alcohol intake Current drinker of alcohol (finding) [facility] Start: 09-26-2022 Alcohol Comment Occ [facility] Start: 03-02-2023 End: 12-21-2024 Tobacco use panel [facility] Adult Depression Screening Assessment 0 [facility] Start: 08-09-2023 Alcohol Comment Occ - 3 glasse s of wine a year [facility] Has the [employer], or [employer] threatened to shut off services in your home in past 12Mo No [facility] Work Phone: (I/We) worried mayr er (my/our) food would run out before (I/we) got money to buy more. Never true [facility] Start: 04-06-2022 End: 12-07-2024 Sex Female (finding) [facility] Start: 11-17-2024 End: 02-05-2025 Alcoholic beverage intake Ex-drinker (finding) [facility] Tobacco smoking stat us NHIS Unknown if ever smoked [facility] Work Phone: Start: 1960 Sex Assigned At Female W [facility] NEGATED: Highlighted rowStart: KIANAF History of tobacco use Passive smoker [facility] Medical Equipment Procedure Code Equipment Code Equipment Original Text Equipment Identifier Dates [id number], [id number], [id number], [id number] Start: 02-10-2021 End: 03-16-2024 Comment on above: USE TO TEST BLOOD GLUCOSE 3 TIMES DAILY. FOUR DAILY FOR INSUL IN INJECTIONS. USE TO BLOOD GLUCOSE 3 TIMES DAILY. INSULIN DEPENDENT E11.3299, E11.65, Z79.4 Anchr Sut 4.75mm 2 Fibertak - [id number] Start: 06-18-2023 Kit Fiberloop 3. 2mm Suture Drill Pin Needle Shoehorn Cannula Proximal - [id number] Start: 06-18-2023 Anchr Sut 4.75mm 2 Fibertak - [id number] Start: 06-18-2023 Anchr Sut 4.75mm 2 Fibertak - [id number] Start: 06-18-2023 Anchr Sut 4.75mm 2 Fibertak - [id number] Start: 06-18-2023 Dressing Bovine Collagen Glycosaminoglycan Polysiloxane 5x4in Biological - [id number] Start: 12-15-2024 Functional Status Date Assessment Result Facility 08-24-2024 Are you deaf, or do you have serious difficulty hearing No 08/24/2024 3:42 PM Danita Lowry RN No [facility] 08-24-2024 Are you blind, or do you have serious difficulty seeing, even when wearing glasses No 08/24/2024 3:42 PM Danita Lowry RN No [facility] 08-24-2024 Do you have serious difficulty walking or climbing stairs Yes 08/24/2024 3:42 PM Danita Lowry RN Yes [facility] 08-24-2024 Do you have difficul ty dressing or bathing Yes 08/24/2024 3:42 PM Danita Lowry RN Yes [facility] 08-24-2024 Because of a physica l, mental, or emotional condition, do you have difficulty doing errands alone such as visiting a physician's office or shopping No 08/24/2024 3:42 PM Danita Lowry RN No [facility] Mental Status Date Assessment Result Facility 08-24-2024 Because of a physica l, mental, or emotional condition, do you have serious difficulty concentrating, remembering, or making decisions No 08/24/2024 3:42 PM Danita Lowry, JOSEPH No [facility] Clinical Notes 08-06-2020 to 02-09-2025 Hu Pickard DPM - 02/09/2025 3:24 PM Portia Raman RN - 02/09/2025 10:22 AM EDTPatient InstructionsTelephone Encounter - Dennis Garcia MD - 02/05/2025 5:10 PM EDTPatient Instructions Note Date & Type Note Facility 02-09-2025 Note [facility] 02-09-2025 History of Presen t illness Narrative Date of Visit: 02/09/2025 Problem list reviewed. CHIEF COMPLAINT: SP RIGHT ankle I&D and calcaneal bone biopsy and LEFT wound debridement and graft application 12/15/24 check B/L lower leg wounds and check RIGHT lower leg wounds DM II A1c 7.1 (01/17/25) DLS 02/08/24 ADM 08/17/24 HISTORY OF PRESENT ILLNESS: Patient presents for BL leg wound check. She believes the right leg wound is doing better. She saw Dr Barnes and is no longer on abx. She has had no issues with graft. She is doing HBO. She states pain is a 1/10. She relates she can't feel feet well and gets numbness. She is trying to get into the assisted living section of [facility]. She relates she sold her house. She relates she needs a wheelchair and a walker to get around her new apartment. Hx She was admitted 08/17/24 and was DC to [facility] where she is still at. She was DC on cipro and flagyl which she finished taking. She relates her insurance wouldn't cover it so she is self paying and planning on going to the nonskilled assistive living side soon. She is at [facility]. Patient is taking protein drinks. Referred by aircraft hydraulic equipment mechanic, Dr. Dasilva. Patient is DM and sees aircraft hydraulic equipment mechanic Denies N/V/F/C/D/SOB/CP/LP. PCN allergy Hx RT 3rd perc flexor tenotomy (07/26/23) HX R great toe amputation 06/18/23, excision tibial and fibular sesamoid, bone biopsy first met head. Right 2nd toe amputation and hallux I&D 10/28/22. Hx s/p RT toe amp 3,4,5 (DOS 10/14/23) DME DM inserts 08/24/23 rx circade wraps 08/14/22 CURRENT MEDICATIONS: oxyCODONE HCl Oral Tablet 5 MG (07/05/2024) Take 1 tablet every 12 hours as needed for 7 day(s) Percocet Oral Tablet 5-325 MG (07/20/2024) Take 1 tablet every 12 hours as needed for 7 day(s) oxyCODONE-Acetaminophen Oral Tablet 5-325 MG (10/28/2022) Ketorolac Tromethamine Ophthalmic Solution 0.5 % (04/26/2023) Accu-Chek Jose Plus In Vitro Strip (09/23/2022) Atorvastatin Calcium Oral Tablet 80 MG (06/13/2023) miSOPROStol Oral Tablet 200 MCG (06/15/2023) TAKE 2 TABLETS BY MOUTH THE DAY PRIOR TO PROCEDURE AT BEDTIME WITH FOOD Fluticasone Propionate Nasal Suspension 50 MCG/ACT (12/15/2022) USE 2 SPRAYS IN EACH NOSTRIL DAILY X1 WEEK,THEN 1 SPRAY IN EACH NOSTRIL DAILY THEREAFTER NEEDED Nitrofurantoin Monohyd Macro Oral Capsule 100 MG (02/08/2023) Fluconazole Oral Tablet 200 MG (03/20/2024) TAKE 1 TABLET EVERY DAY FOR 21 DAYS Bactrim DS Oral Tablet 800-160 MG (06/24/2023) Take 1 tablet twice a day for 10 day(s) Ofloxacin Ophthalmic Solution 0.3 % (03/30/2023) diazePAM Oral Tablet 10 MG (02/19/2022) TAKE 1 TABLET 60 MIN BEFORE TEST Atorvastatin Calcium Oral Tablet 40 MG (11/18/2022) FLUoxetine HCl Oral Capsule 40 MG (01/26/2022) Enalapril Maleate Oral Tablet 10 MG (01/26/2022) TAKE 1 TABLET BY MOUTH EVERY DAY Erythromycin Ophthalmic Ointment 5 MG/GM (02/09/2022) APPLY 1 A SMALL AMOUNT LEFT EYE 4 TIMES A DAY Atorvastatin Calcium Oral Tablet 20 MG (01/26/2022) TAKE 1 TABLET BY MOUTH EVERY DAY Spironolactone Oral Tablet 25 MG (06/15/2023) TAKE 0.5 TABLETS BY MOUTH ONCE DAILY. Jardiance Oral Tablet 25 MG (06/14/2023) TAKE 1 TABLET BY MOUTH EVERY DAY WITH BREAKFAST Furosemide Oral Tablet 40 MG (11/18/2022) HumuLIN R U-500 KwikPen Subcutaneous Solution Pen-injector 500 UNIT/ML (06/14/2023) INJECT 40 UNITS SUBCUTANEOUSLY AT BREAKFAST, 100 UNITS AT LUNCH, 80 UNITS AT SUPPER. metFORMIN HCl Oral Tablet 1000 MG (11/23/2022) TAKE 1 TABLET BY MOUTH TWICE DAILY WITH MEALS. E11.3599 ALLERGIES: Amoxicillin Unknown Band-Aid [place] Surg Dressing Other Bandaging Tape Other PAST MEDICAL HISTORY: Podiatry History remarkable for Foot Numbness, Fungal Nails, Leg or Foot Ulcers. The patient has a past medical history of Arthritis, Depression, DM-Medication Dependent, Poor Circulation. Neuropathy High Cholesterol SURGICAL HISTORY: Hand Tonsils HOSPITALIZATIONS: None Noted SOCIAL HISTORY: Smoking Status: Never smoker; Last Reviewed: 12/08/2023 Alcohol use: social drinker No drug use Social History Reviewed (01/16/2021 11:20:18 AM EST) FAMILY HISTORY: There is a family history of Denial of any knowledge of significant family history. Denial of any knowledge of significant family history Family History Reviewed (01/16/2021 11:20:19 AM EST) REVIEW OF SYSTEMS: Psychologic: Admits to No psych symptoms. Review of systems otherwise negative PHYSICAL EXAMINATION: Vital Signs: Weight 235 lbs; Height 5 ft 8 in; BMI 35.7 02/07/2025 9:57 AM (EST) Temperature 98.6 F; Pulse Rate 100 bpm; Blood Pressure 120 / 80 mm/Hg Vascular Exam: DP pulses of the RIGHT and LEFT foot are +1/4 PT pulses of the RIGHT and LEFT foot are +1/4 CFT is within normal limits, less than 3s to all digits, both feet. Skin temperature from proximal to distal is warm to warm, both feet. BL LE edema Dermatologic Exam: LEFT posterior Achilles lower leg wound predebridement measures 8.4x2x0.2cm and post debridement measures 8.5x2.1x0.4cm with 85:15 granular fibrotic base, surrounding slough, no surrounding edema and erythema, no purulence expressed, no probe to bone but complete RUPTURE of achilles tendon, no malodor, moderate serosanginous drainage. Into level of SUBCUTANEOUS TISSUE. RIGHT posterior Achilles lower leg cluster wound predebridement measures 8.8x2.4x0.3cm and post debridement measures 9x2.5x0.4cm with 90:10 granular fibrotic base, surrounding slough, no surrounding edema and no erythema, no purulence expressed, no probe to bone but complete RUPTURE of achilles tendon, no malodor, moderate serosanginous drainage. Into level of SUBCUTANEOUS tissue. LEFT foot 2nd toe tuft hyperkeratotic tissue Nails 2-5 left are thickened, elongated and discolored with subungual debris. The nails are greater than .3mm in thickness. The discoloration is yellowish in color. Innerspaces 1-4 LT are clean dry and intact. Skin texture and turgor are decreased. absent or decreased hair growth bilateral. chronic lower leg red hyperpigmentation Neurologic Exam: Comments/Other Findings: Vibratory sensations decreased LT, Protective sensations absent LT tested with 5.07 monofilament, and light, sharp, and temperature sensations intact LT. Normal Babinski test noted bl foot after testing Orthopedic Exam: Additional Orthopedic Findings: RIGHT foot toe amputations 1,2,3,4,5 LEFT 2nd hammertoe contracture semi- rigid BL foot with absent plantar flexion 0/5 muscle strength with palpable rupture to achilles tendon DIAGNOSIS: Type II diabetes mellitus with neurological manifestations PVD (peripheral vascular disease) Amputated toe of right foot Personal history of diabetic foot ulcer Callus Onychomycosis Venous ulcer of left lower extremity without varicose veins Ulcer of left lower extremity, limited to breakdown of skin Venous ulcer of right lower extremity without varicose veins Ulcer of right lower extremity, limited to breakdown of skin 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 Diabetic foot ulcer Diabetic leg ulcer Achilles rupture, left 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 Achilles rupture, right Ulcer of left foot with fat layer exposed 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 Ulcer of left foot, limited to breakdown of skin Diabetic ulcer of left ankle, limited to breakdown of skin Diabetic ulcer of right ankle with fat layer exposed Gait instability Skin ulcer of right ankle, limited to breakdown of skin PLAN AND TREATMENT: ASSESMENT & PLAN BL Foot and Ankle and Lower extremity Exam and Evaluation carried out with a treatment plan reviewed with the patient and findings discussed with patient including alternatives, benefits, complications and risks TESTS / IMAGING / X-RAY EXAM PREVIOUS right foot XR: There was noted to be normal joint spaces unless noted. No fractures or dislocations noted. No soft tissue emphysema noted. No osteopenia or sclerosis noted. tibial and fibular sesamoid excised, there is small calcified piece of fibular sesamoid bone noted to plantar lateral 1st met. RT foot amp at MTPJ 1,2,3,4,5. no lytic lesions. no soft tissue gas noted. 08/17/24 Xray left foot: No radiographic presence of OM 08/17/24 Xray tib/fib left leg: No radiographic presence of OM 08/17/24 Xray tib/fib right leg: No radiographic presence of OM 08/17/24 CRP: 13.6 and 08/18/24 ESR: 97 04/05/24 PVR b/l leg: Left MANJEET 0.9 and Right 0.95 08/18/24 Left leg wound culture: Few pseudomonas aeruginosa FINAL 08/18/24 MRI BL LE: 1. No drainable soft tissue abscess or evidence for osteomyelitis 2. Diffuse edema/cellulitis and fatty muscle atrophy with nonspecific myositis. 01/17/25 albumin: 3.1 11/27/24 right achilles wound Cx: MSSA, Streptococcus agalactiae (group b streptococcus) Abnormal, Proteus mirabilis Abnormal 12/15/24 right foot XR: Interval amputation of the 3rd, 4th and 5th toes. Previous 1st and 2nd toe amputations. Stable chronic deformities of the distal 2nd and 5th metatarsals. No acute fracture. Midfoot osteoarthrosis and postoperative soft tissue swelling. Soft tissue suction device adjacent to the distal tibia and posterior skin clint. 12/15/24 right achilles wound Cx: MRSA and Proteus mirabilis and Mixed anaerobic judy 12/15/24 right calcaneus bone Cx: Enterococcus faecalis Abnormal and Proteus mirabilis and Mixed anaerobic judy PATH: Cancellous bone with reactive changes, negative for osteomyelitis LEFT posterior achilles lower leg ulcer has improved. RIGHT posterior achilles lower leg ulcer improved. RIGHT posterior Achilles lower leg ulcer and LEFT posterior achilles lower leg ulcer treated with sharp excisional debridement carried out of the wound with non selective sharp excisional debridement past the dermis into SUBCUTANEOUS level with use of curette and 15 scalpel blade. Devitalized tissue removed. We then flushed out the wound with wound wash sterile saline. Area numbed with lidocaine gel if sensate prior. Discussed importance in offloading, proper nutrition including blood sugar control and getting enough protein and vitamins, infection prevention, and proper wound care in wound healing. Also discussed detrimental impact of smoking on healing. Reviewed proper wound care with patient. To not soak wound but to clean appropriately. To watch for signs of infection both local and systemic. These were reviewed with the patient. If seen to contact office or go to ED. To continue wound care consisting of washing the wound with soap and water or vashe solution soaked gauze for 3-5 minutes. Then to apply dressing consisting of graft to right side. covered by adaptic, steristrips, drawtex, abd, gauze wrap. Can change outer dressing of 4x4, abd, kerlix, olegario wrap. To leave steri, and adaptic in place or reinforce as needed. Endoform applied on left side. Patient has findings concerning for osteomyelitis. Discussed conservative and surgical options. Discussed IV antibiotics and wound care vs amputation with patient. Offered referral to infectious disease. Discussed all risks and benefits of all options. All questions were answered. Patient elects to proceed with CONSERTATIVE treatment plan. follow up with ID, Dr Barnes as scheduled. To completed IV abx per ID for 6 weeks vancomycin and ceftriaxone and Flagyl. Patient to have PICC line removed TODAY. Discussed with both achilles ruptured she will struggle with push off in gait. Discussed achilles likely ruptured due to chronic ulceration with infections and drying out of tendon. Discussed if we can get her healed she will need AFO to aid in walking. Discussed she is at high risk for BKA BL, right moreso than left. Discussed she can weight bear as tolerated. Discussed need assist for activities as she is a high fall risk. Discussed limiting motion at ankle joint to stop tugging on wounds to aid in healing. Discussed need to balance this with maintaining muscle. Discussed need for better nutrition Patient educated on the importance of proper nutrition to help optimize healing. Discussed eating three balanced meals daily and meal preparation. Discussed importance of high protein intake. Discussed supplementation drinks such as ensure, glucerna, nepro, tamiko. Discussed need for blood sugar control, proper vitamin intake whether dietary or through supplementation. Discussed Vitamin C, Multi Vitamin, zinc, and magnesium supplementation. Discussed may need to watch sodium intake as well especially if patient experiences swelling. Offered nutrition referral. Patient taking protein supplement drink BID between meals previously Rx wheeled walker and wheelchair for patient to be able to rehab and safely do ADLs A procedural pause was conducted immediately prior to starting the wound debridement to verify correct patient identity using two patient identifiers: the correct site and correct procedure. Permission from the patient to perform the procedure was obtained. We prepared the site for the graft application with remove the devitalized tissue and then doing cross hatching and preparing base with to promote a healthy, active wound edge to support healing. The wound base was 100% granular after prepping. Hemostasis was achieved with direct pressure. The wound was then copiously irrigated with saline. Patient tolerated this well without complications. THIRD application of APLIFGRAF skin graft to RIGHT achilles wound. After site was cleaned and prepped skin graft was applied to the area. This was secured with adaptic touch and steri strips. Site was covered drawtex, gauze, and gauze roll. This is to clean, dry and intact until next appointment. Outer dressing above the steri strips can be changed for saturation every 2-3 days or PRN Follow up 1-2 week for wound check and graft application Type II diabetes mellitus with neurological manifestations 250.60 E11.49 Diagnosis Notes Drag & Drop to change diagnosis order PVD (peripheral vascular disease) 443.9 I73.9 Diagnosis Notes Drag & Drop to change diagnosis order Amputated toe of right foot 895.0 S98.131A Diagnosis Notes Drag & Drop to change diagnosis order Personal history of diabetic foot ulcer V12.29 Z86.31 Diagnosis Notes Drag & Drop to change diagnosis order Callus 700 L84 Diagnosis Notes Drag & Drop to change diagnosis order Onychomycosis 110.1 B35.1 Diagnosis Notes Drag & Drop to change diagnosis order Venous ulcer of left lower extremity without varicose veins 459.81 I87.2 Diagnosis Notes Drag & Drop to change diagnosis order Ulcer of left lower extremity, limited to breakdown of skin 707.10 L97.921 Diagnosis Notes Drag & Drop to change diagnosis order Venous ulcer of right lower extremity without varicose veins 459.81 I87.2 Diagnosis Notes Drag & Drop to change diagnosis order Ulcer of right lower extremity, limited to breakdown of skin 707.10 L97.911 Diagnosis Notes Drag & Drop to change diagnosis order 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 707.13 L97.323 Diagnosis Notes Drag & Drop to change diagnosis order Diabetic foot ulcer 250.80 E11.621 Diagnosis Notes Drag & Drop to change diagnosis order Diabetic leg ulcer 250.80 E11.622 Diagnosis Notes Drag & Drop to change diagnosis order Achilles rupture, left 845.09 S86.012A Diagnosis Notes Drag & Drop to change diagnosis order 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 707.13 L97.312 Diagnosis Notes Drag & Drop to change diagnosis order Achilles rupture, right 845.09 S86.011A Diagnosis Notes Drag & Drop to change diagnosis order Ulcer of left foot with fat layer exposed 707.15 L97.522 Diagnosis Notes Drag & Drop to change diagnosis order 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 707.13 L97.314 Diagnosis Notes Drag & Drop to change diagnosis order Ulcer of left foot, limited to breakdown of skin 707.15 L97.521 Diagnosis Notes Drag & Drop to change diagnosis order Diabetic ulcer of left ankle, limited to breakdown of skin 250.80 E11.622 Diagnosis Notes Drag & Drop to change diagnosis order Diabetic ulcer of right ankle with fat layer exposed 250.80 E11.622 Diagnosis Notes Drag & Drop to change diagnosis order Gait instability 781.2 R26.81 Diagnosis Notes Drag & Drop to change diagnosis order Skin ulcer of right ankle, limited to breakdown of skin 707.13 L97.311 Nursing Documentation Pertinent Medical History: DM2, HTN, venous insufficiency, & heart failure Wound Etiology according to patient: wounds started February 2024 Pt had right great toe amputation June 18, 2023 Patient arrived via: Ambulatory with cane Home Care Company/Nursing Facility: [facility] Consent captured for debridement per Hu Pickard DPM and good until April 2025 Anticoagulant Therapy: ASA 81mg ACTIVE CARE PER PROVIDER: Hu Pickard DPM Application Dates: Grafts are complete 01/07/2023 Apligraf 01/15/2023 Apligraf 01/21/2023 Apligraf 01/27/2023 Apligraf 02/04/2023 Apligraf Graft placed in the OR 12/15/24 with Hu Pickard DPM to Left and Right Achilles removed by Dr. Marti 01/04/25 Wounds 1-38 previously closed 40, 41 closed 43-56 closed ___ WOUND ASSESSMENT: Refer to Provider's Wound Assessment Note VASCULAR ASSESSMENT BY PROVIDER: See provider wound assessment note CHF History: Yes as of February 2022, Dr. Sadler in Cardiology EDEMA: Right Foot: 2+ firm pitting Right ankle: 1+ Right Calf: Trace Left Foot: 2+ Left ankle: TRACE Left Calf: NONE MEASUREMENTS: in CM Right Calf: 29.8 Right Ankle: 23.6 Left Calf: 30.3 Left Ankle: 21.7 Length: 43.0 not measured at visit WOUND PHOTOGRAPHY: YES X 3 (date taken 02/09/25) DEBRIDEMENT PROCEDURE BY PROVIDER: Anesthetic Used: 2% lidogel applied by Dahlia Urbina RN Wound #: Other procedure: N/A Specimen collected: N/A WOUND TREATMENT PER MD ORDER: Wounds cleansed by mechanical debridement to allow provider to visualize wound base\ *Silicone Allergy LEFT LOWER LEG WOUNDS WOUND # 42 - LOCATION: Left Achilles (NEW 07/26/24) L: 8.5 cm x W: 2.1 cm x D: 0.4 cm Cleansed with: Vashe Applied to naya-wound skin: skin prep Applied to wound bed: Endoform, adaptic, steri strips, drawtex Covered and secured with: 4x4's, abd, kerlix, tape 4 olegario wrap to foot and ankle with 6 to lower leg from behind the toes to 1 below the knee - - - - - - - - - - - - - - - - - - - - - - - - - - - - - - - - - - - - - - - - - - - - - - - - - - - - - - - - - - - - - - - - - - - - - - RIGHT LOWER LEG WOUNDS Application Dates: 01/19/2025 Apligraf applied - [employer] 2. 02/02/2025 Apligraf applied - [employer] 3. 02/09/25 Apligraf applied - organogenesis 4. 5. Graft was prepared using 0.9% saline solution per medication reconciliation technician instructions. 0.9% saline solution Lot #: [id number] Expiration Date: 12/05/2027 Organogenesis - APLIGRAF: 44.0 cm 50% used with 50% wasted - applied by Hu Pickard DPM @ time: 1130 LOT #: [id number] EXP: 02/15/25 PH: 6.8-7.3 ITM: [id number] Serial #: [id number] WOUND # 39 LOCATION: Right Achilles L: 9.0 cm x W: 2.5 cm x D: 0.4 cm Cleansed with: Vashe and saline rinse Applied to naya-wound skin: skin prep Applied to the wound bed: Apligraf, adaptic, steristrips, drawtex Covered and secured with: 4x4's, ABD, kerlix, tape 4 olegario wrap to foot and ankle with 6 to lower leg from behind the toes to 1 below the knee - - - - - - - - - - - - - - - - - - - - - - - - - - - - - - - - - - - - - - - - - - - - - - - - - - - - - - - - - - - - - - - - - - - - - - COMPRESSION: NO COMPRESSION. Gentle olegario wraps only to secure dressings OLEGARIO WRAP/SurePress/Tubi-tobacco wetter: Foot is warm and pink before and after application. It was demonstrated to the patient how to check for adequate circulation. Patient voices understanding. If circulation becomes compromised by a change in color, increased pain, numbness or tingling to the area, the patient knows to remove the compression and elevate the leg above the heart. SPECIAL NEEDS: Coordination of care - AVS faxed to 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 Pickard Follow up with Franky Barnes MD in 2 weeks: 02/13/25 @ 12:40pm Continue HBOT until notified to stop. Continue aggressive nutritional support to assist wound healing, focusing on increasing protein intake, keeping blood sugars stable/controlled Blood sugars must be kept below 150 for wound healing Patient is a High Fall Risk due - UP WITH ASSIST ONLY HAVE PATIENT ATTEMPT CHAIR YOGA EXERCISES - LIMITED ANKLE MOVEMENT WEIGHT BEARING TOLERATED Please give patient premiere diabetic protein shakes 2 x daily between meals. Please send an updated medical list with patient for each visit. OTHER EDUCATION: Reviewed wound/graft care with patient. Education performed regarding lymphedema/edema: n/a Elevation of extremity above the heart for 30 minutes three times daily and as needed Exercise such as writing the ABC's with your toes in the air, walking and/or calf pumps Wearing compression as ordered by provider Diet controlling of sodium as instructed by provider Use of medication to help control edema. UNIVERSAL PROTOCOL / SAFETY CHECKLIST Procedure to be Performed: sharp debridement lower extremity wounds Sign In: 1102 A Moment of CARE was completed. Appropriate PPE (Personal Protective Equipment) worn by all providers involved with the procedure. Special equipment not required. Patient/Surrogate Stated/Verified: Patient name, Date of , Relevant allergies, and The intended procedure Time Out: 1102 Relevant labs, photos, and/or imaging studies have been reviewed. Intended patient and procedure match the source document(s) (e.g. consent, H&P, associated studies [imaging, pathology]) match the intended patient and procedure. Consent obtained and matches the intended procedure. Yes. Correct side/site is not applicable. Medications required for this procedure are verified. Fire risk assessed and is not applicable. Implants: are not applicable. Sign Out: 1112 Specimens not collected. All instruments, equipment, possible retained foreign bodies are accounted for. Yes. The post-procedure plan of care has been communicated to the patient or surrogate. Current HBOT - Stephenie in to evaluate & take photos Portia Holguin RN/sp documented in this encounter [facility] 02-09-2025 Instructions Portia Holguin RN - 02/09/2025 10:38 AM EDT WOUND CARE INSTRUCTIONS- Shade Brambila Wound location: Bilateral Lower Legs [facility]: FAX: [phone] Apligraf was applied today. You may change the outer dressing ONLY of the graft site. If the entire dressing is removed for any reason, please use the alternate dressing until patient returns to the wound center. DO NOT USE VASHE' with graft Right Achilles: Apligraf Graft may change outer dressing only Please leave the steri-strips intact Apply Drawtex over top of the adaptic Apply 4x4 gauze, abd pad Secure with kerlix wrap, tape Change Every other day and as needed 4 olegario wrap to foot and ankle with 6 to lower leg Left Achilles (change the outer dressing only) Please leave the steri-strips intact Apply Drawtex over top of the adaptic Apply 4x4 gauze, abd pad Secure with kerlix wrap, tape Change Every other day and as needed 4 olegario wrap to foot and ankle with 6 to lower leg Right / Left Achilles Alternate Dressing change: (Use only if above dressings are removed) - Apply vashe moistened gauze soak for 5 to 10 minutes. Remove and pat dry with gauze. - Apply Endoform (bumpy side to the wound) slightly moistened with saline to the wound base. - Apply 4x4 gauze - Place ABD pad over achilles and Heel cup ABD on heel. - Wrap with Kerlix and secure with tape. - Change dressing every other day and as needed to maintain a clean dry dressing. 4 olegario wrap to foot and ankle with 6 to lower leg from behind the toes to 1 below the knee - Avoid sitting with legs in a dependent position or standing for long periods of time. - Attempt to lay flat and elevate your legs above the level of your heart 2-3 times daily, for 30 minutes at a time. - Be sure to continue walking and/or calf pumps and exercises to mimic writing the alphabet with your foot, as instructed Foot care Many people with diabetes lose the feeling in their feet (neuropathy). Therefore, they might not know they have an injury that can lead to serious problems, such as foot removal (amputation). By taking care of your feet, most serious problems can be prevented. If you have problems checking your own feet, have a family member or friend help you. Easy steps to protect your feet: Check your feet every day for: dry or cracked skin, cuts, open sores, blisters, redness, swelling, corns, calluses, or toenail problems. Use a mirror if necessary. Report any problems to your doctor. Keep your feet clean and dry, especially between the toes. If your feet are dry or cracked use a moisturizing lotion at least daily but never between the toes. See your judicial clerk every three months for foot and nail care. Don't go barefoot. Wear shoes or slippers at all times. Wear comfortable shoes that fit well. Check inside your shoes for foreign objects or rough spots before putting on shoes. Always wear socks. Avoid using anything hot, such as heating pads, hot water bottles, hot tubs, or bath water. Check the temperature of bath water with your elbow not your foot. Take your shoes and socks off at every office visit to remind your doctor to check your feet. Also, never tape a dressing directly to the skin on your legs or feet. Instead, use a self-adherent bandage to avoid injuring the skin on your lower extremities If calluses form they can cause wound ulcers to appear under the callus, must be seen by [employer] every three months to prevent. Maintain controlled blood sugar, if blood sugar is consistently above 200 this can delay wound healing and aggravate neuropathy. To give your wound the best chance to heal: - Eat three balanced meals daily focusing on the protein - Control your blood sugar. Keep blood sugar less than 200 - Complete your wound care instructions as ordered - Vitamin C 500 mg twice daily - Multiple Vitamin Daily - Drink a protein shake daily - Premiere Clear or Glucerna for Diabetic patients, Nepro for renal patients and premiere for non-renal and non-diabetic patients PLEASE ATTEMPT TO FEED THE PATIENT A DIABETIC DIET Diabetic Premiere Protein Shakes 2 x daily between meals May ambulate with Assistance Physical Therapy to assess what level of aid the patient needs to ambulate with assistance Patient may bear weight Report any of the following signs and symptoms of infection to the Wound Center at [phone] or go to the Emergency Department: Fever or chills Increased drainage Green or yellow drainage Foul odor Increased pain Hardness around the wound Redness, warmth or swelling of the surrounding tissue Color change to the wound Evenings / Weekends / Holidays If you call the wound center at the phone number provided above, please leave a detailed message that includes your full name, birthday, and phone number. We are seeing patients during the day, so we will return your call within a 24-48 hr period in the order your call was received. There is not an on-call provider assigned to the wound center. If you have an emergency that needs to be addressed, please go to an Urgent Care or Emergency Room. Thank you for your cooperation and understanding. If you are feeling ill, please call to reschedule your appointment. If you believe your illness to be wound related, call and leave a message using the directions above describing your symptoms. If you cannot wait 24-48 hrs for a callback, please get evaluated in the nearest emergency department. PLAN/ORDERS: Follow-up in the Wound Center with Dr Pickard on the following dates: 02/16/25 at 9:30 am for the 4th Apligraf application 02/23/25 at 10:00 am for the 5th Apligraf application 03/02/25 at 10:[address] Pickard Follow up with Franky Barnes MD in 2 weeks: 02/13/25 @ 12:40pm Continue HBOT until notified to stop. Continue aggressive nutritional support to assist wound healing, focusing on increasing protein intake, keeping blood sugars stable/controlled Blood sugars must be kept below 150 for wound healing Patient is a High Fall Risk due - UP WITH ASSIST ONLY HAVE PATIENT ATTEMPT CHAIR YOGA EXERCISES - LIMITED ANKLE MOVEMENT WEIGHT BEARING TOLERATED Please give patient premiere diabetic protein shakes 2 x daily between meals. Please send an updated medical list with patient for each visit. Dr. Hu Pickard, DPM/nh/sp documented in this encounter [facility] 02-09-2025 Note [facility] 02-05-2025 Telephone encounter Note Ophthalmology follow-up appointment Impression and plan: 1. 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 Persistent diabetic macular edema left eye 3. Proliferative diabetic retinopathy bilaterally Continue Eylea injections [facility] Work Phone: 02-05-2025 Miscellaneous Notes Ophthalmology follow-up appointment Impression and plan: 1. 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 Persistent diabetic macular edema left eye 3. Proliferative diabetic retinopathy bilaterally Continue Eylea injections Received patient's Office Notes re: Diabetic Eye Exam (dos: 02/02/25) from [facility] placed in provider's in box to be for reviewed & signed with providers approval to be sent to scanning. Chance Sanders) documented in this encounter [facility] 02-05-2025 Telephone encounter Note Received patient's Office Notes re: Diabetic Eye Exam (dos: 02/02/25) from [facility] placed in provider's in box to be for reviewed & signed with providers approval to be sent to scanning. Chance Sanders) [facility] 02-02-2025 Note [facility] 02-02-2025 History of Presen t illness Narrative Date of Visit: 02/02/2025 Problem list reviewed. CHIEF COMPLAINT: SP RIGHT ankle I&D and calcaneal bone biopsy and LEFT wound debridement and graft application 12/15/24 check B/L lower leg wounds and check RIGHT lower leg wounds DM II A1c 7.1 (01/17/25) DLS 02/08/24 ADM 08/17/24 HISTORY OF PRESENT ILLNESS: Patient presents for BL leg wound check. She believes the right leg wound is doing better. She saw Dr Barnes and is on IV and oral abx which she finished today and can have PICC removed today. She has had no issues with graft. She is doing HBO. She states pain is a 1/10. She relates she can't feel feet well and gets numbness. She is trying to get into the assisted living section of [facility]. She relates she sold her house. She relates she needs a wheelchair and a walker to get around her new apartment. Hx She was admitted 08/17/24 and was DC to [facility] where she is still at. She was DC on cipro and flagyl which she finished taking. She relates her insurance wouldn't cover it so she is self paying and planning on going to the nonskilled assistive living side soon. She is at [facility]. Patient is taking protein drinks. Referred by aircraft hydraulic equipment mechanic, Dr. Dasilva. Patient is DM and sees aircraft hydraulic equipment mechanic Denies N/V/F/C/D/SOB/CP/LP. PCN allergy Hx RT 3rd perc flexor tenotomy (07/26/23) HX R great toe amputation 06/18/23, excision tibial and fibular sesamoid, bone biopsy first met head. Right 2nd toe amputation and hallux I&D 10/28/22. Hx s/p RT toe amp 3,4,5 (DOS 10/14/23) DME DM inserts 08/24/23 rx circade wraps 08/14/22 CURRENT MEDICATIONS: oxyCODONE HCl Oral Tablet 5 MG (07/05/2024) Take 1 tablet every 12 hours as needed for 7 day(s) Percocet Oral Tablet 5-325 MG (07/20/2024) Take 1 tablet every 12 hours as needed for 7 day(s) oxyCODONE-Acetaminophen Oral Tablet 5-325 MG (10/28/2022) Ketorolac Tromethamine Ophthalmic Solution 0.5 % (04/26/2023) Accu-Chek Jose Plus In Vitro Strip (09/23/2022) Atorvastatin Calcium Oral Tablet 80 MG (06/13/2023) miSOPROStol Oral Tablet 200 MCG (06/15/2023) TAKE 2 TABLETS BY MOUTH THE DAY PRIOR TO PROCEDURE AT BEDTIME WITH FOOD Fluticasone Propionate Nasal Suspension 50 MCG/ACT (12/15/2022) USE 2 SPRAYS IN EACH NOSTRIL DAILY X1 WEEK,THEN 1 SPRAY IN EACH NOSTRIL DAILY THEREAFTER NEEDED Nitrofurantoin Monohyd Macro Oral Capsule 100 MG (02/08/2023) Fluconazole Oral Tablet 200 MG (03/20/2024) TAKE 1 TABLET EVERY DAY FOR 21 DAYS Bactrim DS Oral Tablet 800-160 MG (06/24/2023) Take 1 tablet twice a day for 10 day(s) Ofloxacin Ophthalmic Solution 0.3 % (03/30/2023) diazePAM Oral Tablet 10 MG (02/19/2022) TAKE 1 TABLET 60 MIN BEFORE TEST Atorvastatin Calcium Oral Tablet 40 MG (11/18/2022) FLUoxetine HCl Oral Capsule 40 MG (01/26/2022) Enalapril Maleate Oral Tablet 10 MG (01/26/2022) TAKE 1 TABLET BY MOUTH EVERY DAY Erythromycin Ophthalmic Ointment 5 MG/GM (02/09/2022) APPLY 1 A SMALL AMOUNT LEFT EYE 4 TIMES A DAY Atorvastatin Calcium Oral Tablet 20 MG (01/26/2022) TAKE 1 TABLET BY MOUTH EVERY DAY Spironolactone Oral Tablet 25 MG (06/15/2023) TAKE 0.5 TABLETS BY MOUTH ONCE DAILY. Jardiance Oral Tablet 25 MG (06/14/2023) TAKE 1 TABLET BY MOUTH EVERY DAY WITH BREAKFAST Furosemide Oral Tablet 40 MG (11/18/2022) HumuLIN R U-500 KwikPen Subcutaneous Solution Pen-injector 500 UNIT/ML (06/14/2023) INJECT 40 UNITS SUBCUTANEOUSLY AT BREAKFAST, 100 UNITS AT LUNCH, 80 UNITS AT SUPPER. metFORMIN HCl Oral Tablet 1000 MG (11/23/2022) TAKE 1 TABLET BY MOUTH TWICE DAILY WITH MEALS. E11.3599 ALLERGIES: Amoxicillin Unknown Band-Aid [place] Surg Dressing Other Bandaging Tape Other PAST MEDICAL HISTORY: Podiatry History remarkable for Foot Numbness, Fungal Nails, Leg or Foot Ulcers. The patient has a past medical history of Arthritis, Depression, DM-Medication Dependent, Poor Circulation. Neuropathy High Cholesterol SURGICAL HISTORY: Hand Tonsils HOSPITALIZATIONS: None Noted SOCIAL HISTORY: Smoking Status: Never smoker; Last Reviewed: 12/08/2023 Alcohol use: social drinker No drug use Social History Reviewed (01/16/2021 11:20:18 AM EST) FAMILY HISTORY: There is a family history of Denial of any knowledge of significant family history. Denial of any knowledge of significant family history Family History Reviewed (01/16/2021 11:20:19 AM EST) REVIEW OF SYSTEMS: Psychologic: Admits to No psych symptoms. Review of systems otherwise negative PHYSICAL EXAMINATION: Vital Signs: Weight 235 lbs; Height 5 ft 8 in; BMI 35.7 01/31/2025 11:37 AM (EST) Temperature 98.6 F; Pulse Rate 100 bpm; Blood Pressure 120 / 80 mm/Hg Vascular Exam: DP pulses of the RIGHT and LEFT foot are +1/4 PT pulses of the RIGHT and LEFT foot are +1/4 CFT is within normal limits, less than 3s to all digits, both feet. Skin temperature from proximal to distal is warm to warm, both feet. BL LE edema Dermatologic Exam: LEFT posterior Achilles lower leg wound predebridement measures 7.4x2.8x0.2cm and post debridement measures 7.5x3.0x0.3cm with 85:15 granular fibrotic base, surrounding slough, no surrounding edema and erythema, no purulence expressed, no probe to bone but complete RUPTURE of achilles tendon, no malodor, moderate serosanginous drainage. Into level of SUBCUTANEOUS TISSUE. RIGHT posterior Achilles lower leg cluster wound predebridement measures 9.1x2.6x0.3cm and post debridement measures 9.3x2.8x0.4cm with 90:10 granular fibrotic base, surrounding slough, no surrounding edema and no erythema, no purulence expressed, no probe to bone but complete RUPTURE of achilles tendon, no malodor, moderate serosanginous drainage. Into level of SUBCUTANEOUS tissue. LEFT foot 2nd toe tuft hyperkeratotic tissue Nails 2-5 left are thickened, elongated and discolored with subungual debris. The nails are greater than .3mm in thickness. The discoloration is yellowish in color. Innerspaces 1-4 LT are clean dry and intact. Skin texture and turgor are decreased. absent or decreased hair growth bilateral. chronic lower leg red hyperpigmentation Neurologic Exam: Comments/Other Findings: Vibratory sensations decreased LT, Protective sensations absent LT tested with 5.07 monofilament, and light, sharp, and temperature sensations intact LT. Normal Babinski test noted bl foot after testing Orthopedic Exam: Additional Orthopedic Findings: RIGHT foot toe amputations 1,2,3,4,5 LEFT 2nd hammertoe contracture semi- rigid BL foot with absent plantar flexion 0/5 muscle strength with palpable rupture to achilles tendon DIAGNOSIS: Type II diabetes mellitus with neurological manifestations PVD (peripheral vascular disease) Amputated toe of right foot Personal history of diabetic foot ulcer Callus Onychomycosis Venous ulcer of left lower extremity without varicose veins Ulcer of left lower extremity, limited to breakdown of skin Venous ulcer of right lower extremity without varicose veins Ulcer of right lower extremity, limited to breakdown of skin 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 Diabetic foot ulcer Diabetic leg ulcer Achilles rupture, left 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 Achilles rupture, right Ulcer of left foot with fat layer exposed 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 Ulcer of left foot, limited to breakdown of skin Diabetic ulcer of left ankle, limited to breakdown of skin Diabetic ulcer of right ankle with fat layer exposed Gait instability Skin ulcer of right ankle, limited to breakdown of skin PLAN AND TREATMENT: ASSESMENT & PLAN BL Foot and Ankle and Lower extremity Exam and Evaluation carried out with a treatment plan reviewed with the patient and findings discussed with patient including alternatives, benefits, complications and risks TESTS / IMAGING / X-RAY EXAM PREVIOUS right foot XR: There was noted to be normal joint spaces unless noted. No fractures or dislocations noted. No soft tissue emphysema noted. No osteopenia or sclerosis noted. tibial and fibular sesamoid excised, there is small calcified piece of fibular sesamoid bone noted to plantar lateral 1st met. RT foot amp at MTPJ 1,2,3,4,5. no lytic lesions. no soft tissue gas noted. 08/17/24 Xray left foot: No radiographic presence of OM 08/17/24 Xray tib/fib left leg: No radiographic presence of OM 08/17/24 Xray tib/fib right leg: No radiographic presence of OM 08/17/24 CRP: 13.6 and 08/18/24 ESR: 97 04/05/24 PVR b/l leg: Left MANJEET 0.9 and Right 0.95 08/18/24 Left leg wound culture: Few pseudomonas aeruginosa FINAL 08/18/24 MRI BL LE: 1. No drainable soft tissue abscess or evidence for osteomyelitis 2. Diffuse edema/cellulitis and fatty muscle atrophy with nonspecific myositis. 01/17/25 albumin: 3.1 11/27/24 right achilles wound Cx: MSSA, Streptococcus agalactiae (group b streptococcus) Abnormal, Proteus mirabilis Abnormal 12/15/24 right foot XR: Interval amputation of the 3rd, 4th and 5th toes. Previous 1st and 2nd toe amputations. Stable chronic deformities of the distal 2nd and 5th metatarsals. No acute fracture. Midfoot osteoarthrosis and postoperative soft tissue swelling. Soft tissue suction device adjacent to the distal tibia and posterior skin clint. 12/15/24 right achilles wound Cx: MRSA and Proteus mirabilis and Mixed anaerobic judy 12/15/24 right calcaneus bone Cx: Enterococcus faecalis Abnormal and Proteus mirabilis and Mixed anaerobic judy PATH: Cancellous bone with reactive changes, negative for osteomyelitis LEFT posterior achilles lower leg ulcer has improved. RIGHT posterior achilles lower leg ulcer improved. RIGHT posterior Achilles lower leg ulcer and LEFT posterior achilles lower leg ulcer treated with sharp excisional debridement carried out of the wound with non selective sharp excisional debridement past the dermis into SUBCUTANEOUS level with use of curette and 15 scalpel blade. Devitalized tissue removed. We then flushed out the wound with wound wash sterile saline. Area numbed with lidocaine gel if sensate prior. Discussed importance in offloading, proper nutrition including blood sugar control and getting enough protein and vitamins, infection prevention, and proper wound care in wound healing. Also discussed detrimental impact of smoking on healing. Reviewed proper wound care with patient. To not soak wound but to clean appropriately. To watch for signs of infection both local and systemic. These were reviewed with the patient. If seen to contact office or go to ED. To continue wound care consisting of washing the wound with soap and water or vashe solution soaked gauze for 3-5 minutes. Then to apply dressing consisting of graft to right side. covered by adaptic, steristrips, drawtex, abd, gauze wrap. Can change outer dressing of 4x4, abd, kerlix, olegario wrap. To leave steri, and adaptic in place or reinforce as needed Patient has findings concerning for osteomyelitis. Discussed conservative and surgical options. Discussed IV antibiotics and wound care vs amputation with patient. Offered referral to infectious disease. Discussed all risks and benefits of all options. All questions were answered. Patient elects to proceed with CONSERTATIVE treatment plan. follow up with ID, Dr Barnes as scheduled. To completed IV abx per ID for 6 weeks vancomycin and ceftriaxone and Flagyl. Patient to have PICC line removed TODAY. Discussed with both achilles ruptured she will struggle with push off in gait. Discussed achilles likely ruptured due to chronic ulceration with infections and drying out of tendon. Discussed if we can get her healed she will need AFO to aid in walking. Discussed she is at high risk for BKA BL, right moreso than left. Discussed she can weight bear as tolerated. Discussed need assist for activities as she is a high fall risk. Discussed limiting motion at ankle joint to stop tugging on wounds to aid in healing. Discussed need to balance this with maintaining muscle. Discussed need for better nutrition Patient educated on the importance of proper nutrition to help optimize healing. Discussed eating three balanced meals daily and meal preparation. Discussed importance of high protein intake. Discussed supplementation drinks such as ensure, glucerna, nepro, tamiko. Discussed need for blood sugar control, proper vitamin intake whether dietary or through supplementation. Discussed Vitamin C, Multi Vitamin, zinc, and magnesium supplementation. Discussed may need to watch sodium intake as well especially if patient experiences swelling. Offered nutrition referral. Patient taking protein supplement drink BID between meals Rx wheeled walker and wheelchair for patient to be able to rehab and safely do ADLs A procedural pause was conducted immediately prior to starting the wound debridement to verify correct patient identity using two patient identifiers: the correct site and correct procedure. Permission from the patient to perform the procedure was obtained. We prepared the site for the graft application with remove the devitalized tissue and then doing cross hatching and preparing base with to promote a healthy, active wound edge to support healing. The wound base was 100% granular after prepping. Hemostasis was achieved with direct pressure. The wound was then copiously irrigated with saline. Patient tolerated this well without complications. SECOND application of APLIFGRAF skin graft to RIGHT achilles wound. After site was cleaned and prepped skin graft was applied to the area. This was secured with adaptic touch and steri strips. Site was covered drawtex, gauze, and gauze roll. This is to clean, dry and intact until next appointment. Outer dressing above the steri strips can be changed for saturation every 2-3 days or PRN Follow up 1-2 week for wound check and graft application Type II diabetes mellitus with neurological manifestations 250.60 E11.49 Diagnosis Notes Drag & Drop to change diagnosis order PVD (peripheral vascular disease) 443.9 I73.9 Diagnosis Notes Drag & Drop to change diagnosis order Amputated toe of right foot 895.0 S98.131A Diagnosis Notes Drag & Drop to change diagnosis order Personal history of diabetic foot ulcer V12.29 Z86.31 Diagnosis Notes Drag & Drop to change diagnosis order Callus 700 L84 Diagnosis Notes Drag & Drop to change diagnosis order Onychomycosis 110.1 B35.1 Diagnosis Notes Drag & Drop to change diagnosis order Venous ulcer of left lower extremity without varicose veins 459.81 I87.2 Diagnosis Notes Drag & Drop to change diagnosis order Ulcer of left lower extremity, limited to breakdown of skin 707.10 L97.921 Diagnosis Notes Drag & Drop to change diagnosis order Venous ulcer of right lower extremity without varicose veins 459.81 I87.2 Diagnosis Notes Drag & Drop to change diagnosis order Ulcer of right lower extremity, limited to breakdown of skin 707.10 L97.911 Diagnosis Notes Drag & Drop to change diagnosis order 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 707.13 L97.323 Diagnosis Notes Drag & Drop to change diagnosis order Diabetic foot ulcer 250.80 E11.621 Diagnosis Notes Drag & Drop to change diagnosis order Diabetic leg ulcer 250.80 E11.622 Diagnosis Notes Drag & Drop to change diagnosis order Achilles rupture, left 845.09 S86.012A Diagnosis Notes Drag & Drop to change diagnosis order 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 707.13 L97.312 Diagnosis Notes Drag & Drop to change diagnosis order Achilles rupture, right 845.09 S86.011A Diagnosis Notes Drag & Drop to change diagnosis order Ulcer of left foot with fat layer exposed 707.15 L97.522 Diagnosis Notes Drag & Drop to change diagnosis order 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 707.13 L97.314 Diagnosis Notes Drag & Drop to change diagnosis order Ulcer of left foot, limited to breakdown of skin 707.15 L97.521 Diagnosis Notes Drag & Drop to change diagnosis order Diabetic ulcer of left ankle, limited to breakdown of skin 250.80 E11.622 Diagnosis Notes Drag & Drop to change diagnosis order Diabetic ulcer of right ankle with fat layer exposed 250.80 E11.622 Diagnosis Notes Drag & Drop to change diagnosis order Gait instability 781.2 R26.81 Diagnosis Notes Drag & Drop to change diagnosis order Skin ulcer of right ankle, limited to breakdown of skin 707.13 L97.311 Images from the original note were not included. Nursing Documentation Pertinent Medical History: DM2, HTN, venous insufficiency, & heart failure Wound Etiology according to patient: wounds started February 2024 Pt had right great toe amputation June 18, 2023 Patient arrived via: Ambulatory with [facility]Nursing Facility: [facility] Consent captured for debridement per Hu Pickard DPM and good until April 2025 Anticoagulant Therapy: ASA 81mg ACTIVE CARE PER PROVIDER: Hu Pickard DPM Application Dates: Grafts are complete 01/07/2023 Apligraf 01/15/2023 Apligraf 01/21/2023 Apligraf 01/27/2023 Apligraf 02/04/2023 Apligraf Graft placed in the OR 12/15/24 with Hu Pickard DPM to Left and Right Achilles removed by Dr. Marti 01/04/25 Wounds 1-38 previously closed 40, 41 closed 43-56 closed ___ WOUND ASSESSMENT: Refer to Provider's Wound Assessment Note VASCULAR ASSESSMENT BY PROVIDER: See provider wound assessment note CHF History: Yes as of February 2022, Dr. Sadler in Cardiology EDEMA: Right Foot: 2+ Right ankle: 2+ Right Calf: 1+ Left Foot: 2+ Left ankle: 1+ Left Calf: 1+ MEASUREMENTS: in CM Right Calf: 32.5 Right Ankle: 24.0 Left Calf: 30.5 Left Ankle: 23.0 Length: 43.0 not measured at visit WOUND PHOTOGRAPHY: no (date taken 01/12/25) DEBRIDEMENT PROCEDURE BY PROVIDER: Anesthetic Used: 2% lidogel applied by Andrea Leonard RN Other procedure: Right upper arm PICC line removed per protocol without difficulty, length = 41.0cm Specimen collected: N/A WOUND TREATMENT PER MD ORDER: Wounds cleansed by mechanical debridement to allow provider to visualize wound base\ *Silicone Allergy LEFT LOWER LEG WOUNDS WOUND # 42 - LOCATION: Left Achilles (NEW 07/26/24) L: 7.5 cm x W: 3.0 cm x D: 0.3 cm Cleansed with: Vashe Applied to naya-wound skin: skin prep Applied to wound bed: Endoform, adaptic, drawtex Covered and secured with: 4x4's, abd, kerlix, tape 4 olegario wrap to foot and ankle with 6 to lower leg from behind the toes to 1 below the knee - - - - - - - - - - - - - - - - - - - - - - - - - - - - - - - - - - - - - - - - - - - - - - - - - - - - - - - - - - - - - - - - - - - - - - RIGHT LOWER LEG WOUNDS Application Dates: 01/19/2025 Apligraf applied - [employer] 2. 02/02/2025 Apligraf applied - [employer] 3. 4. 5. Graft was prepared using 0.9% saline solution per medication reconciliation technician instructions. 0.9% saline solution Lot #: [id number] Expiration Date: 09/05/2027 [employer] - APLIGRAF: 44.0 cm 50% used with 50% wasted - applied by Hu Pickard DPM @ time: 1130 LOT #: [id number] EXP: 02/08/2025 PH: 6.8 - 7.3 ITM: [id number] Serial #: [id number] WOUND # 39 LOCATION: Right Achilles L: 9.3 cm x W: 2.8 cm x D: 0.4 cm Cleansed with: Vashe and saline rinse Applied to naya-wound skin: skin prep Applied to the wound bed: Apligraf, adaptic, steristrips, drawtex Covered and secured with: 4x4's, ABD, kerlix, tape 4 olegario wrap to foot and ankle with 6 to lower leg from behind the toes to 1 below the knee - - - - - - - - - - - - - - - - - - - - - - - - - - - - - - - - - - - - - - - - - - - - - - - - - - - - - - - - - - - - - - - - - - - - - - COMPRESSION: NO COMPRESSION. Gentle olegario wraps only to secure dressings OLEGARIO WRAP/SurePress/Tubi-tobacco wetter: Foot is warm and pink before and after application. It was demonstrated to the patient how to check for adequate circulation. Patient voices understanding. If circulation becomes compromised by a change in color, increased pain, numbness or tingling to the area, the patient knows to remove the compression and elevate the leg above the heart. SPECIAL NEEDS: Coordination of care - AVS faxed to [facility] Emotional support N/A OR set-up N/A Yarn Examiner N/A Incontinence needs N/A DME company: ordered 03/01/24 [place] wraps, Supplies ordered 06/07/2024 x 30 days with 2 refills, PICC line with IV antibiotics ordered today 12/19/24 DISCHARGED in stable condition to: back to [facility] via wheelchair with transport PLAN/ORDERS: Follow-up in the Wound Center with Dr Pickard 02/09/25 for the 3rd Apligraf application Follow up with Franky Barnes MD in 2 weeks: 02/13/25 @ 12:40pm Continue HBOT until notified to stop. Continue aggressive nutritional support to assist wound healing, focusing on increasing protein intake, keeping blood sugars stable/controlled Blood sugars must be kept below 150 for wound healing Patient is a High Fall Risk due - UP WITH ASSIST ONLY HAVE PATIENT ATTEMPT CHAIR YOGA EXERCISES - LIMITED ANKLE MOVEMENT WEIGHT BEARING TOLERATED Please give patient premiere diabetic protein shakes 2 x daily between meals. Please send an updated medical list with patient for each visit. OTHER EDUCATION: Reviewed wound/graft care with patient. Education performed regarding lymphedema/edema: n/a Elevation of extremity above the heart for 30 minutes three times daily and as needed Exercise such as writing the ABC's with your toes in the air, walking and/or calf pumps Wearing compression as ordered by provider Diet controlling of sodium as instructed by provider Use of medication to help control edema. UNIVERSAL PROTOCOL / SAFETY CHECKLIST Procedure to be Performed: sharp debridement lower extremity wounds Sign In: 1110 A Moment of CARE was completed. Appropriate PPE (Personal Protective Equipment) worn by all providers involved with the procedure. Special equipment not required. Patient/Surrogate Stated/Verified: Patient name, Date of , Relevant allergies, and The intended procedure Time Out: 1110 Relevant labs, photos, and/or imaging studies have been reviewed. Intended patient and procedure match the source document(s) (e.g. consent, H&P, associated studies [imaging, pathology]) match the intended patient and procedure. Consent obtained and matches the intended procedure. Yes. Correct side/site is not applicable. Medications required for this procedure are verified. Fire risk assessed and is not applicable. Implants: are not applicable. Sign Out: 1125 Specimens not collected. All instruments, equipment, possible retained foreign bodies are accounted for. Yes. The post-procedure plan of care has been communicated to the patient or surrogate. Shelley Kenny RN/martha Current HBOT - 02/02/25 Stephenie in to evaluate & take photos documented in this encounter [facility] 02-02-2025 Instructions Shelley Kenny RN - 02/02/2025 10:23 AM EDT WOUND CARE INSTRUCTIONS- Shade Brambila Wound location: Bilateral Lower Legs [facility] HOME: FAX: [phone] PICC line removed today in the wound center: 02/02/25 SITE: PICC removal Leave dressing dry and intact x 24 hours Then resume normal activity Any bleeding - apply direct pressure x 15 minutes Apligraf was applied today. You may change the outer dressing ONLY of the graft site. If the entire dressing is removed for any reason, please use the alternate dressing until patient returns to the wound center. DO NOT USE VASHE' with graft Right Achilles: Apligraf Graft may change outer dressing only Please leave the steri-strips intact Apply Drawtex over top of the adaptic Apply 4x4's, abd pad Secure with kerlix wrap, tape Change Every other day and as needed 4 olegario wrap to foot and ankle with 6 to lower leg Left Achilles (change the outer dressing only) Please leave the steri-strips intact Apply Drawtex over top of the adaptic Apply 4x4's, abd pad Secure with kerlix wrap, tape Change Every other day and as needed 4 olegario wrap to foot and ankle with 6 to lower leg Right / Left Achilles Alternate Dressing change: (Use only if above dressings are removed) - Apply vashe moistened gauze soak for 5 to 10 minutes. Remove and pat dry with gauze. - Apply Endoform to the wound base. - Apply 4x4's - Place ABD pad over achilles and Heel cup ABD on heel. - Wrap with Kerlix and secure with tape. - Change dressing every other day and as needed to maintain a clean dry dressing. 4 olegario wrap to foot and ankle with 6 to lower leg from behind the toes to 1 below the knee - Avoid sitting with legs in a dependent position or standing for long periods of time. - Attempt to lay flat and elevate your legs above the level of your heart 2-3 times daily, for 30 minutes at a time. - Be sure to continue walking and/or calf pumps and exercises to mimic writing the alphabet with your foot, as instructed Foot care Many people with diabetes lose the feeling in their feet (neuropathy). Therefore, they might not know they have an injury that can lead to serious problems, such as foot removal (amputation). By taking care of your feet, most serious problems can be prevented. If you have problems checking your own feet, have a family member or friend help you. Easy steps to protect your feet: Check your feet every day for: dry or cracked skin, cuts, open sores, blisters, redness, swelling, corns, calluses, or toenail problems. Use a mirror if necessary. Report any problems to your doctor. Keep your feet clean and dry, especially between the toes. If your feet are dry or cracked use a moisturizing lotion at least daily but never between the toes. See your judicial clerk every three months for foot and nail care. Don't go barefoot. Wear shoes or slippers at all times. Wear comfortable shoes that fit well. Check inside your shoes for foreign objects or rough spots before putting on shoes. Always wear socks. Avoid using anything hot, such as heating pads, hot water bottles, hot tubs, or bath water. Check the temperature of bath water with your elbow not your foot. Take your shoes and socks off at every office visit to remind your doctor to check your feet. Also, never tape a dressing directly to the skin on your legs or feet. Instead, use a self-adherent bandage to avoid injuring the skin on your lower extremities If calluses form they can cause wound ulcers to appear under the callus, must be seen by [employer] every three months to prevent. Maintain controlled blood sugar, if blood sugar is consistently above 200 this can delay wound healing and aggravate neuropathy. To give your wound the best chance to heal: - Eat three balanced meals daily focusing on the protein - Control your blood sugar. Keep blood sugar less than 200 - Complete your wound care instructions as ordered - Vitamin C 500 mg twice daily - Multiple Vitamin Daily - Drink a protein shake daily - Premiere Clear or Glucerna for Diabetic patients, Nepro for renal patients and premiere for non-renal and non-diabetic patients PLEASE ATTEMPT TO FEED THE PATIENT A DIABETIC DIET Diabetic Premiere Protein Shakes 2 x daily between meals May ambulate with Assistance Physical Therapy to assess what level of aid the patient needs to ambulate with assistance Patient may bear weight Report any of the following signs and symptoms of infection to the Wound Center at [phone] or go to the Emergency Department: Fever or chills Increased drainage Green or yellow drainage Foul odor Increased pain Hardness around the wound Redness, warmth or swelling of the surrounding tissue Color change to the wound Evenings / Weekends / Holidays If you call the wound center at the phone number provided above, please leave a detailed message that includes your full name, birthday, and phone number. We are seeing patients during the day, so we will return your call within a 24-48 hr period in the order your call was received. There is not an on-call provider assigned to the wound center. If you have an emergency that needs to be addressed, please go to an Urgent Care or Emergency Room. Thank you for your cooperation and understanding. If you are feeling ill, please call to reschedule your appointment. If you believe your illness to be wound related, call and leave a message using the directions above describing your symptoms. If you cannot wait 24-48 hrs for a callback, please get evaluated in the nearest emergency department. PLAN/ORDERS: Follow-up in the Wound Center with Dr Pickard 02/09/25 for the 3rd Apligraf application Follow up with Franky Barnes MD in 2 weeks: 02/13/25 @ 12:40pm Continue HBOT until notified to stop. Continue aggressive nutritional support to assist wound healing, focusing on increasing protein intake, keeping blood sugars stable/controlled Blood sugars must be kept below 150 for wound healing Patient is a High Fall Risk due - UP WITH ASSIST ONLY HAVE PATIENT ATTEMPT CHAIR YOGA EXERCISES - LIMITED ANKLE MOVEMENT WEIGHT BEARING TOLERATED Please give patient premiere diabetic protein shakes 2 x daily between meals. Please send an updated medical list with patient for each visit. Dr. Hu Pickard, PABLITO/tr/mh documented in this encounter [facility] 02-02-2025 Note [facility] 01-31-2025 Telephone encounter Note Please resend. Received a fax from Lydia stating insurance is not covering insulin lispro. [facility] 01-31-2025 Miscellaneous Notes Please resend. Received a fax from Lydia stating insurance is not covering insulin lispro. documented in this encounter [facility] 01-30-2025 Telephone encounter Note Per Munira-- Conway stop date for 02/02. OK to remove line after abx doses on 02/02. the PICC line can be removed after last dose of antibiotics on Wednesday in the wound center because she is coming here and would feel more comfortable having the PICC line removed in the wound center. Orders will need to be given to the skilled nursing to have the patient get her morning dose of vancomycin and ceftriaxone prior to her visit to the wound center. Will continue vancomycin and ceftriaxone till 02/02 Continue Flagyl for anaerobic coverage till 02/02 Continue aggressive wound care. The patient already has grafts on the wounds Discussed medication interactions with the patient Monitor for any signs of infection at the surgical site Wound care Labs reviewed and discussed Follow-up in the wound center 2 weeks to look for any signs of relapsed infection. These were discussed with the patient in details. All questions answered. Above orders given to the ZEESHAN Deb [facility] 01-30-2025 Miscellaneous Notes Per Munira-- [place] stop date for 02/02. OK to remove line after abx doses on 02/02. the PICC line can be removed after last dose of antibiotics on Wednesday in the wound center because she is coming here and would feel more comfortable having the PICC line removed in the wound center. Orders will need to be given to the skilled nursing to have the patient get her morning dose of vancomycin and ceftriaxone prior to her visit to the wound center. Will continue vancomycin and ceftriaxone till 02/02 Continue Flagyl for anaerobic coverage till 02/02 Continue aggressive wound care. The patient already has grafts on the wounds Discussed medication interactions with the patient Monitor for any signs of infection at the surgical site Wound care Labs reviewed and discussed Follow-up in the wound center 2 weeks to look for any signs of relapsed infection. These were discussed with the patient in details. All questions answered. Above orders given to the PUNCH HANDDeb SINGH Shade has an appt today with Munira at [facility]. She's currently on Vanc 1g iv q24, Ceftriaxone 2g iv q24, and Flagyl 500mg po TID with a stop date of February 02. January 30 labs wnl Vanc trough wnl at 18.6 There's no cbc results The results were attached to the M drive January 22 labs reviewed, no changes The results were attached to the M drive January 22 vanc trough 19.3 I asked that they fax us the rest of the results January 15 labs reviewed, no changes Vanc trough wnl at 18.7 EOS elevated at 11.5% Will monitor for abn s/s The tubes were taken to [facility] The results were attached to the M drive This morning's vanc trough came back wnl at 16.9 The results were attached to the M drive The nurse infused the vanc this morning and then the labs were drawn. Therefore, the vanc level of 34.1 is a PEAK. Deb will have a trough drawn tomorrow morning. The EOS are elevated at 9.5%. Will monitor for abn s/s. The results were attached to the M drive. January 01 labs reviewed, no changes Vanc trough wnl at 17.1 The results were attached to the M drive DOSAGE CHANGE December 27 creat wnl at 0.72 (0.93) Random vanc 15.5 (33.5 trough) Munira gave orders over the phone to change the vanc to once a day with the same dosage of 1g Above orders given to the PUNCH HANDDeb The tubes were taken to [facility] The results were attached to the M drive [facility] [phone] Today's vanc is elevated at 33.5 Orders given to the nurse, Deb, to hold the vanc until further notice. They will obtain a random vanc and bmp on Wed. Once the results are finalized, Munira will review and give a decreased vanc dosage. The vanc infusion times may need to be adjusted since Shade leaves at 5:45am for hyperbarics. The results were attached to the M drive. The patient's assisted living facility will be moving her to skilled care while she is on IV abx. The facility will provide medications not CSI. Talked to Mary Kate at facility [phone]. Orders, labs and notes faxed to [phone] Attn Mary Kate per her request. Confirmed picc/first dose scheduled for 12-22-24 at 10:15 PICC placement and first dose scheduled 12-22-24 at 10:15. LMOVM for Martha at [facility] Martha at [facility] confirmed benefits. IR notified ok to schedule picc placement and first dose. Today's office note: Obtain the PICC line Start vancomycin and ceftriaxone Add Flagyl for anaerobic coverage Treat for a total of 6 weeks with IV antibiotics Will start Zyvox, Flagyl and Omnicef in the room while PICC line is being placed Discussed medication interactions with the patient Monitor for any signs of infection at the surgical site Wound care Follow-up in the wound center 6 weeks Summary: [facility]-FOR IDC USE ONLY -[facility] [place] [facility] DX: R HEEL OM TX: VANCOMYCIN 1GMIV Q12 TX: CEFTRIAXONE 2GM IV Q24 STOP: 42 DAYS LABS: CBC/D ALT CREAT VANC T ESR CRP QMON FU: EOT [facility] Intake faxed to [facility] for pharmacy and nursing. PICC and first dose to be scheduled after benefits confirmed. documented in this encounter [facility] 01-30-2025 Note [facility] 01-30-2025 History of Presen t illness Narrative Images from the original note were not included. 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 Patient has had MSSA in the past Diabetes mellitus type 2 Charcot's arthropathy Obesity Chronic kidney disease Depression RECOMMENDATIONS Conway stop date for 02/02. OK to remove line after abx doses on 02/02. the PICC line can be removed after last dose of antibiotics on Wednesday in the wound center because she is coming here and would feel more comfortable having the PICC line removed in the wound center. Orders will need to be given to the skilled nursing to have the patient get her morning dose of vancomycin and ceftriaxone prior to her visit to the wound center. Will continue vancomycin and ceftriaxone till 02/02 Continue Flagyl for anaerobic coverage till 02/02 Continue aggressive wound care. The patient already has grafts on the wounds Discussed medication interactions with the patient Monitor for any signs of infection at the surgical site Wound care Labs reviewed and discussed Follow-up in the wound center 2 weeks to look for any signs of relapsed infection. These were discussed with the patient in details. All questions answered. INTERVAL HISTORY: ROS done with pt and negative unless stated. Patient is having some diarrhea and nausea associated with the antibiotics. She denies any fevers or chills. Grafts have been placed on the heel wounds MEDICATIONS: empagliflozin (JARDIANCE) 25 mg tablet TAKE 1 TABLET BY MOUTH EVERY DAY WITH BREAKFAST insulin lispro 100 unit/mL injection Sliding scale- Blood sugar 111-150 Give 0 units 151-200 Give 1 unit 201-250 Give 2 units 251-300 Give 3 units 301-350 Give 4 units 351-400 Give 5 units Greater than 400 Give 5 units and Notify Provider atorvastatin (LIPITOR) 80 mg tablet Take 1 tablet by mouth once daily. enalapril (VASOTEC) 20 mg tablet Take 0.5 tablets by mouth two times a day. cefTRIAXone sodium (ROCEPHIN) 2 gram solr Inject 2 g intravenously once daily. ferrous sulfate 325 mg (65 mg iron) EC tablet Take 325 mg by mouth once daily. metroNIDAZOLE (FLAGYL) 500 mg tablet Take 500 mg by mouth three times a day. multivitamin with minerals (VISION/OPTIGEN) tablet Take 1 tablet by mouth once daily. L.acidophilus-L.rhamnosus (PROBIOTIC) 15 billion cell capsule Take 1 capsule by mouth once daily. traMADol (ULTRAM) 50 mg tablet Take 50 mg by mouth two times a day. For pain. ascorbic acid, vitamin C, (VITAMIN C) 500 mg tablet Take 500 mg by mouth two times a day. ZINC ORAL Take 1 tablet by mouth once daily. vancomycin/water for inj, PEG, (VANCOMYCIN-DILUENT COMBO NO.1) 1 gram/200 mL pgbk Inject intravenously once daily. ondansetron (ZOFRAN) 4 mg tablet Take 1 tablet by mouth one time only for 1 dose. furosemide (LASIX) 20 mg tablet Take 1 tablet by mouth once daily. pt stated that she is working with heart failure RN BABY on lasix polyethylene glycol 3350 (MIRALAX) 17 gram packet Take 17 g by mouth once daily. Dissolve dose in 4 - 8 ounces of liquid and take as directed. Blood-Glucose Sensor (DEXCOM G7 SENSOR) edita For continuous glucose monitoring Blood-Glucose Meter,Continuous (DEXCOM G7 CLAIMS ADJUSTOR) misc For continuous glucose monitoring. GLUCAGON EMERGENCY KIT, HUMAN, INJECTION by INJECTION(UNSPECIFIED PARENTERAL ROUTES) route. sodium phosphate,mono-dibasic (ENEMA RECTAL) by RECTAL route as needed (constipation). may be given daily, if needed bisacodyl (DULCOLAX) 10 mg supp 10 mg by RECTAL route once daily as needed for constipation. senna-docusate (SENEXON-S) 8.6-50 mg per tablet Take 1 tablet by mouth as needed for constipation. naloxone (NARCAN) 1 mg/mL for intranasal administration 1 mg by INTRANASAL route as needed for known or suspected opioid overdose. Once for opioid overdose may repeat every 2-3 min fluticasone (FLONASE) 50 mcg/actuation nasal spray Use 2 sprays in each nostril once daily. ondansetron (ZOFRAN) 4 mg tablet Take 4 mg by mouth every 8 hours as needed for nausea/vomiting. traMADol (ULTRAM) 50 mg tablet Take 50 mg by mouth every 6 hours as needed for pain. (Patient taking differently: Take 50 mg by mouth every 12 hours as needed for pain.) acetaminophen (TYLENOL) 325 mg tablet Take 2 tablets by mouth every 6 hours as needed for fever (specify temp.) or pain (temp >100.1F). senna (SENOKOT) 8.6 mg tab Take 1 tablet by mouth two times a day. (Patient not taking: Reported on 01/04/2025) ACCU-CHEK JOSE PLUS TEST STRP test strip USE TO TEST BLOOD GLUCOSE 3 TIMES DAILY ascorbic acid (VITAMIN C ORAL) Take 500 mg by mouth two times a day. aspirin, enteric coated (ASPIRIN, ENTERIC COATED) 81 mg EC tablet Take 81 mg by mouth once daily. cyanocobalamin, vitamin B-12, 1,000 mcg/mL kit 1,000 mcg by INJECTION(UNSPECIFIED PARENTERAL ROUTES) route once every month. Blood Pressure Monitor Please monitor blood pressure 1-2 hours after taking morning medications. FLUoxetine (PROZAC) 40 mg capsule Take by mouth q 24 HR. lancets (ONE TOUCH DELICA) 33 gauge USE TO BLOOD GLUCOSE 3 TIMES DAILY. INSULIN DEPENDENT E11.3299, E11.65, Z79.4 insulin needles, DISPOSABLE, (BD INSULIN PEN NEEDLE UF) 31 gauge x 5/16 FOUR DAILY FOR INSULIN INJECTIONS. Blood-Glucose Meter misc Use to test blood glucose 3 times daily. Insulin Dependent E11.3299, E11.65, Z79.4 Cholecalciferol, Vitamin D3, 50 mcg (2,000 unit) cap Take 1 tablet by mouth once daily. PHYSICAL EXAM: Vital signs: stable, afeb General: alert, oriented, NAD Lungs: bilaterally clear to auscultation Heart: regular rate and rhythm Abdomen: soft, non tender, non distended, BS+ Extremities: no swollen joints Skin: no rash Posterior ankle and heel wounds with grafts Lab data: reviewed WBC (k/uL) Date Value 12/05/2024 10.11 10/01/2024 10.29 08/20/2024 8.39 02/04/2021 10.63 02/03/2021 8.27 04/01/2017 8.50 Hemoglobin (g/dL) Date Value 12/05/2024 10.0 10/01/2024 10.0 08/20/2024 9.1 02/04/2021 11.7 02/03/2021 11.7 04/01/2017 14.5 INR (no units) Date Value 08/18/2024 1.2 Sodium (mmol/L) Date Value 12/05/2024 136 10/01/2024 136 08/20/2024 134 02/04/2021 137 02/03/2021 129 04/01/2017 138 NA (mmol/L) Date Value 09/19/2021 141 02/05/2020 139 Potassium (mmol/L) Date Value 12/05/2024 4.2 10/01/2024 4.3 08/20/2024 5.1 02/04/2021 4.0 02/03/2021 4.6 04/01/2017 3.9 K (mmol/L) Date Value 09/19/2021 4.3 02/05/2020 4.8 CO2 Date Value 12/05/2024 28 mmol/L 10/01/2024 26 mmol/L 08/20/2024 23 mmol/L 02/04/2021 27 mmol/L 02/03/2021 24 mmol/L 02/05/2020 28 MEQ/L 04/01/2017 28 mmol/L BUN Date Value 12/05/2024 26 mg/dL 10/01/2024 32 mg/dL 08/20/2024 24 mg/dL 09/19/2021 18 MG/DL 02/04/2021 23 mg/dL 02/03/2021 29 mg/dL 02/05/2020 15 MG/DL 04/01/2017 12 mg/dL Creatinine Date Value 12/05/2024 0.79 mg/dL 10/01/2024 0.79 mg/dL 08/20/2024 0.66 mg/dL 09/19/2021 0.67 MG/DL 02/04/2021 0.96 mg/dL 02/03/2021 1.16 mg/dL 02/05/2020 1.04 MG/DL 04/01/2017 0.68 mg/dL AST (U/L) Date Value 10/01/2024 27 08/20/2024 15 08/19/2024 18 02/04/2021 24 02/03/2021 29 04/01/2017 23 AST (SGOT) (U/L) Date Value 09/19/2021 21 02/05/2020 30 ALT (U/L) Date Value 10/01/2024 16 08/20/2024 11 08/19/2024 12 02/04/2021 17 02/03/2021 19 04/01/2017 14 ALT (SGPT) (U/L) Date Value 09/19/2021 15 02/05/2020 22 Bilirubin, Total (mg/dL) Date Value 10/01/2024 0.2 08/20/2024 0.2 08/19/2024 0.3 02/04/2021 0.3 02/03/2021 0.3 04/01/2017 0.5 Alkaline Phosphatase (U/L) Date Value 10/01/2024 217 08/20/2024 137 08/19/2024 161 02/04/2021 139 02/03/2021 156 04/01/2017 135 Alk Phos Total (U/L) Date Value 09/19/2021 132 02/05/2020 131 Sed Rate, Westergren (mm/hr) Date Value 08/18/2024 97 07/26/2024 102 Sepsis Lactate (mmol/L) Date Value 08/17/2024 1.5 07/26/2024 0.7 Vancomycin (ug/mL) Date Value 08/19/2024 24.6 07/31/2024 23.4 07/31/2024 30.7 07/28/2024 25.5 Microbiology data: reviewed Imaging data: reviewed Franky Barnes MD Pager: Nursing Documentation Pertinent Medical History: DM2, HTN, venous insufficiency, & heart failure Wound Etiology according to patient: wounds started February 2024 Pt had right great toe amputation June 18, 2023 Patient arrived via: Ambulatory with [facility]Nursing Facility: [facility] Consent captured for debridement per Hu Pickard DPM and good until April 2025 Anticoagulant Therapy: ASA 81mg ACTIVE CARE PER PROVIDER: Hu Pickard DPM Application Dates: Grafts are complete 01/07/2023 Apligraf 01/15/2023 Apligraf 01/21/2023 Apligraf 01/27/2023 Apligraf 02/04/2023 Apligraf Graft placed in the OR 12/15/24 with Hu Pickard DPM to Left and Right Achilles removed by Dr. Marti 01/04/25 Wounds 1-38 previously closed 40, 41 closed 43-56 closed ___ WOUND ASSESSMENT: Refer to Provider's Wound Assessment Note VASCULAR ASSESSMENT BY PROVIDER: See provider wound assessment note CHF History: Yes as of February 2022, Dr. Sadler in Cardiology EDEMA: Right Foot: trace Right ankle: trace Right Calf: trace Left Foot: firm generalized Left ankle: none Left Calf: trace MEASUREMENTS: in CM Right Calf: 33.0 Right Ankle: 23.7 Left Calf: 32.3 Left Ankle: 22.5 Length: 43.0 not measured at visit WOUND PHOTOGRAPHY: no (date taken 01/12/25) DEBRIDEMENT PROCEDURE BY PROVIDER: Anesthetic Used: n/a Other procedure: N/A Specimen collected: N/A Only outer dressing changed on 01/30 Franky Barnes MDv visit due to graft being in place. WOUND TREATMENT PER MD ORDER: Wounds cleansed by mechanical debridement to allow provider to visualize wound base\ *Silicone Allergy LEFT LOWER LEG WOUNDS WOUND # 42 - LOCATION: Left Achilles (NEW 07/26/24) L: 8.3 cm x W: 3.1 cm x D: 0.4 cm - tendon exposed Cleansed with: saline Applied to naya-wound skin: skin prep Applied to wound bed: Endoform, adaptic, drawtex Covered and secured with: 4x4's, abd, kerlix, tape 4 olegario wrap to foot and ankle with 6 to lower leg from behind the toes to 1 below the knee - - - - - - - - - - - - - - - - - - - - - - - - - - - - - - - - - - - - - - - - - - - - - - - - - - - - - - - - - - - - - - - - - - - - - - RIGHT LOWER LEG WOUNDS Only outer dressing changed on 01/30 Franky Barnes MDv visit due to graft being in place. Application Dates: 01/19/2025 Apligraf applied - Organogenesis 2. 3. 4. 5. Graft was prepared using 0.9% saline solution per medication reconciliation technician instructions. 0.9% saline solution Lot #: [id number] Expiration Date: 10/06/2027 Organogenesis - APLIGRAF: 44.0 cm 75% used with 25% wasted - applied by Hu Pickard DPM @ time: 1040 LOT #:[id number] EXP: 01/26/2025 PH: 6.8 -7.5 ITM: [id number] Serial #: [id number] WOUND # 39 LOCATION: Right Achilles L: 9.6 cm x W: 3.5 cm x D: 0.5 cm - Small amount of Tendon exposed drawtex, Covered and secured with: 4x4's, ABD, kerlix, tape 4 olegario wrap to foot and ankle with 6 to lower leg from behind the toes to 1 below the knee - - - - - - - - - - - - - - - - - - - - - - - - - - - - - - - - - - - - - - - - - - - - - - - - - - - - - - - - - - - - - - - - - - - - - - COMPRESSION: NO COMPRESSION. Gentle olegario wraps only to secure dressings OLEGARIO WRAP/SurePress/Tubi-tobacco wetter: Foot is warm and pink before and after application. It was demonstrated to the patient how to check for adequate circulation. Patient voices understanding. If circulation becomes compromised by a change in color, increased pain, numbness or tingling to the area, the patient knows to remove the compression and elevate the leg above the heart. SPECIAL NEEDS: Coordination of care - AVS faxed to [facility] - Sheela Renae to Bessy ramirez at the [facility] to request updated medication list. Nurse to fax over today. Emotional support N/A OR set-up N/A Yarn Examiner N/A Incontinence needs N/A [employer] company: ordered 03/01/24 Farrow wraps, Supplies ordered 06/07/2024 x 30 days with 2 refills, PICC line with IV antibiotics ordered today 12/19/24 DISCHARGED in stable condition to: back to [facility] with transport PLAN/ORDERS: Follow-up in the Wound Center with Dr Pickard February 02 at 10 AM for the 2nd apligraf Follow up with Franky Barnes MD in [address] Barnes okayed for antibiotics to be given early so PICC can be removed at appointment with Hu Pickard DPM - can give vancomycin and flush line and then right after give Rocephin Continue HBOT until notified to stop. Continue aggressive nutritional support to assist wound healing, focusing on increasing protein intake, keeping blood sugars stable/controlled Blood sugars must be kept below 150 for wound healing Patient is a High Fall Risk due - UP WITH ASSIST ONLY HAVE PATIENT ATTEMPT CHAIR YOGA EXERCISES - LIMITED ANKLE MOVEMENT WEIGHT BEARING TOLERATED Please give patient premiere diabetic protein shakes 2 x daily between meals. Please send an updated medical list with patient for each visit. OTHER EDUCATION: Follow up Education performed regarding lymphedema/edema: n/a Elevation of extremity above the heart for 30 minutes three times daily and as needed Exercise such as writing the ABC's with your toes in the air, walking and/or calf pumps Wearing compression as ordered by provider Diet controlling of sodium as instructed by provider Use of medication to help control edema. UNIVERSAL PROTOCOL / SAFETY CHECKLIST N/A Current HBOT - Stephenie in to evaluate Dina Resendez RN/TN documented in this encounter [facility] 01-30-2025 Instructions Dina Resendez RN - 01/30/2025 1:05 PM EDT WOUND CARE INSTRUCTIONS- Shade Brambila Wound location: Bilateral Lower Legs [facility] HOME: FAX: [phone] Discontinue the wound vac today 01/19/25 Apligraf was applied today. It will remain in place for two weeks. You may change the outer dressing ONLY of the graft sites. If the entire dressing is removed for any reason, please use the alternate dressing until patient returns to the wound center. DO NOT USE VASHE' with graft Right Achilles: Apligraf Graft may change outer dressing only Please leave the steri-strips intact Apply Drawtex over top of the adaptic Apply 4x4's, abd pad Secure with kerlix wrap, tape Change Every other day and as needed 4 olegario wrap to foot and ankle with 6 to lower leg Left Achilles graft site with steri-strips (change the outer dressing only) Please leave the steri-strips intact Apply Drawtex over top of the adaptic Apply 4x4's, abd pad Secure with kerlix wrap, tape Change Every other day and as needed 4 olegario wrap to foot and ankle with 6 to lower leg The section that does not have steri-strips: Left Achilles Cleanse with saline solution, pat dry Please apply Endoform moistened with saline bumpy side down Apply a layer of adaptic 4x4's, abd pad Secure with kerlix wrap. Tape Changed every other day and as needed 4 olegario wrap to foot and ankle with 6 to lower leg Right / Left Achilles (Use only if above dressings are removed) - Apply vashe moistened gauze soak for 5 to 10 minutes. Remove and pat dry with gauze. - Apply Endoform to the wound base. - Apply 4x4's - Place ABD pad over achilles and Heel cup ABD on heel. - Wrap with Kerlix and secure with tape. - Change dressing every other day and as needed to maintain a clean dry dressing. 4 olegario wrap to foot and ankle with 6 to lower leg from behind the toes to 1 below the knee - Avoid sitting with legs in a dependent position or standing for long periods of time. - Attempt to lay flat and elevate your legs above the level of your heart 2-3 times daily, for 30 minutes at a time. - Be sure to continue walking and/or calf pumps and exercises to mimic writing the alphabet with your foot, as instructed Foot care Many people with diabetes lose the feeling in their feet (neuropathy). Therefore, they might not know they have an injury that can lead to serious problems, such as foot removal (amputation). By taking care of your feet, most serious problems can be prevented. If you have problems checking your own feet, have a family member or friend help you. Easy steps to protect your feet: Check your feet every day for: dry or cracked skin, cuts, open sores, blisters, redness, swelling, corns, calluses, or toenail problems. Use a mirror if necessary. Report any problems to your doctor. Keep your feet clean and dry, especially between the toes. If your feet are dry or cracked use a moisturizing lotion at least daily but never between the toes. See your judicial clerk every three months for foot and nail care. Don't go barefoot. Wear shoes or slippers at all times. Wear comfortable shoes that fit well. Check inside your shoes for foreign objects or rough spots before putting on shoes. Always wear socks. Avoid using anything hot, such as heating pads, hot water bottles, hot tubs, or bath water. Check the temperature of bath water with your elbow not your foot. Take your shoes and socks off at every office visit to remind your doctor to check your feet. Also, never tape a dressing directly to the skin on your legs or feet. Instead, use a self-adherent bandage to avoid injuring the skin on your lower extremities If calluses form they can cause wound ulcers to appear under the callus, must be seen by [employer] every three months to prevent. Maintain controlled blood sugar, if blood sugar is consistently above 200 this can delay wound healing and aggravate neuropathy. To give your wound the best chance to heal: - Eat three balanced meals daily focusing on the protein - Control your blood sugar. Keep blood sugar less than 200 - Complete your wound care instructions as ordered - Vitamin C 500 mg twice daily - Multiple Vitamin Daily - Drink a protein shake daily - Premiere Clear or Glucerna for Diabetic patients, Nepro for renal patients and premiere for non-renal and non-diabetic patients PLEASE ATTEMPT TO FEED THE PATIENT A DIABETIC DIET Diabetic Premiere Protein Shakes 2 x daily between meals May ambulate with Assistance Physical Therapy to assess what level of aid the patient needs to ambulate with assistance Patient may bear weight Report any of the following signs and symptoms of infection to the Wound Center at [phone] or go to the Emergency Department: Fever or chills Increased drainage Green or yellow drainage Foul odor Increased pain Hardness around the wound Redness, warmth or swelling of the surrounding tissue Color change to the wound Evenings / Weekends / Holidays If you call the wound center at the phone number provided above, please leave a detailed message that includes your full name, birthday, and phone number. We are seeing patients during the day, so we will return your call within a 24-48 hr period in the order your call was received. There is not an on-call provider assigned to the wound center. If you have an emergency that needs to be addressed, please go to an Urgent Care or Emergency Room. Thank you for your cooperation and understanding. If you are feeling ill, please call to reschedule your appointment. If you believe your illness to be wound related, call and leave a message using the directions above describing your symptoms. If you cannot wait 24-48 hrs for a callback, please get evaluated in the nearest emergency department. PLAN/ORDERS: Follow-up in the Wound Center with Dr Pickard February 02 at 10 AM for the 2nd apligraf Follow up with Franky Barnes MD in [address] Barnes okayed for antibiotics to be given early so PICC can be removed at appointment with Hu Pickard DPM - can give vancomycin and flush line and then right after give Rocephin Continue HBOT until notified to stop. Continue aggressive nutritional support to assist wound healing, focusing on increasing protein intake, keeping blood sugars stable/controlled Blood sugars must be kept below 150 for wound healing Patient is a High Fall Risk due - UP WITH ASSIST ONLY HAVE PATIENT ATTEMPT CHAIR YOGA EXERCISES - LIMITED ANKLE MOVEMENT WEIGHT BEARING TOLERATED Please give patient premiere diabetic protein shakes 2 x daily between meals. Please send an updated medical list with patient for each visit. Franky Barnes MD/kwesi/martha documented in this encounter [facility] 01-30-2025 Note [facility] 01-30-2025 Telephone encounter Note Shade has an appt today with Munira at [facility]. She's currently on Vanc 1g iv q24, Ceftriaxone 2g iv q24, and Flagyl 500mg po TID with a stop date of February 02. [facility] 01-30-2025 Telephone encounter Note January 30 labs wnl Vanc trough wnl at 18.6 There's no cbc results The results were attached to the M drive [facility] 01-30-2025 Telephone encounter Note Prescription Refill Information The patient has been identified by name and date of : Yes Caregiver verified no other encounters exist for this prescription request: Yes Caregiver confirmed with patient/requestor that no other refills are due, in the near future, with this provider at this time: Yes The last office visit in the department: 10/25/2024 Does the patient have a future office visit with this provider/department: Yes. 05/02/2025 Requested Prescriptions Pending Prescriptions Disp Refills JARDIANCE 25 mg tablet [Pharmacy Med Name: JARDIANCE 25 MG TABLET] 90 tablet 1 Sig: TAKE 1 TABLET BY MOUTH EVERY DAY WITH BREAKFAST Rimma Laws, [place] January 30, 2025 8:55 AM [facility] 01-30-2025 Miscellaneous Notes Prescription Refill Information The patient has been identified by name and date of : Yes Caregiver verified no other encounters exist for this prescription request: Yes Caregiver confirmed with patient/requestor that no other refills are due, in the near future, with this provider at this time: Yes The last office visit in the department: 10/25/2024 Does the patient have a future office visit with this provider/department: Yes. 05/02/2025 Requested Prescriptions Pending Prescriptions Disp Refills JARDIANCE 25 mg tablet [Pharmacy Med Name: JARDIANCE 25 MG TABLET] 90 tablet 1 Sig: TAKE 1 TABLET BY MOUTH EVERY DAY WITH BREAKFAST Rimma Laws MA January 30, 2025 8:55 AM documented in this encounter [facility] 01-22-2025 Telephone encounter Note Patient's request for medication is as follows: Requested Prescriptions Signed Prescriptions Disp Refills enalapril (VASOTEC) 20 mg tablet 90 tablet 3 Sig: Take 0.5 tablets by mouth two times a day. Authorizing Provider: NAY CENTENO Prescription(s) as above. Please process accordingly. Nay Centeno APRN.CNP [facility] 01-22-2025 Miscellaneous Notes Patient's request for medication is as follows: Requested Prescriptions Signed Prescriptions Disp Refills enalapril (VASOTEC) 20 mg tablet 90 tablet 3 Sig: Take 0.5 tablets by mouth two times a day. Authorizing Provider: NAY CENTENO Prescription(s) as above. Please process accordingly. Nay Centeno APRN.CNP Called pt, no answer. Sent [employer] message NORA 11/17/24 Reece NOV 02/21/25 Reece documented in this encounter [facility] 01-22-2025 Telephone encounter Note January 22 labs reviewed, no changes The results were attached to the M drive [facility] 01-22-2025 Telephone encounter Note January 22 vanc trough 19.3 I asked that they fax us the rest of the results [facility] 01-22-2025 Note [facility] 01-22-2025 History of Presen t illness Narrative Date of Visit: 01/19/2025 Problem list reviewed. CHIEF COMPLAINT: SP RIGHT ankle I&D and calcaneal bone biopsy and LEFT wound debridement and graft application 12/15/24 check B/L lower leg wounds and check RIGHT lower leg wounds DM II A1c 7.1 (01/17/25) DLS 02/08/24 ADM 08/17/24 HISTORY OF PRESENT ILLNESS: Patient presents for BL leg wound check. She believes the right leg wound is doing better since surgery. She saw Dr Barnes and is on IV and oral abx. She has had no issues with graft or with wound vac. She is doing HBO. She is hoping to be done with the wound vac today. She states pain is a 2/10. She relates she can't feel feet well and gets numbness. She is trying to get into the assisted living section of [facility]. She relates she sold her house. Hx She was admitted 08/17/24 and was DC to [facility] where she is still at. She was DC on cipro and flagyl which she finished taking. She relates her insurance wouldn't cover it so she is self paying and planning on going to the nonskilled assistive living side soon. She is at [facility]. Patient is taking protein drinks. Referred by aircraft hydraulic equipment mechanic, Dr. Dasilva. Patient is DM and sees aircraft hydraulic equipment mechanic Denies N/V/F/C/D/SOB/CP/LP. PCN allergy Hx RT 3rd perc flexor tenotomy (07/26/23) HX R great toe amputation 06/18/23, excision tibial and fibular sesamoid, bone biopsy first met head. Right 2nd toe amputation and hallux I&D 10/28/22. Hx s/p RT toe amp 3,4,5 (DOS 10/14/23) DME DM inserts 08/24/23 rx circade wraps 08/14/22 CURRENT MEDICATIONS: oxyCODONE HCl Oral Tablet 5 MG (07/05/2024) Take 1 tablet every 12 hours as needed for 7 day(s) Percocet Oral Tablet 5-325 MG (07/20/2024) Take 1 tablet every 12 hours as needed for 7 day(s) oxyCODONE-Acetaminophen Oral Tablet 5-325 MG (10/28/2022) Ketorolac Tromethamine Ophthalmic Solution 0.5 % (04/26/2023) Accu-Chek Jose Plus In Vitro Strip (09/23/2022) Atorvastatin Calcium Oral Tablet 80 MG (06/13/2023) miSOPROStol Oral Tablet 200 MCG (06/15/2023) TAKE 2 TABLETS BY MOUTH THE DAY PRIOR TO PROCEDURE AT BEDTIME WITH FOOD Fluticasone Propionate Nasal Suspension 50 MCG/ACT (12/15/2022) USE 2 SPRAYS IN EACH NOSTRIL DAILY X1 WEEK,THEN 1 SPRAY IN EACH NOSTRIL DAILY THEREAFTER NEEDED Nitrofurantoin Monohyd Macro Oral Capsule 100 MG (02/08/2023) Fluconazole Oral Tablet 200 MG (03/20/2024) TAKE 1 TABLET EVERY DAY FOR 21 DAYS Bactrim DS Oral Tablet 800-160 MG (06/24/2023) Take 1 tablet twice a day for 10 day(s) Ofloxacin Ophthalmic Solution 0.3 % (03/30/2023) diazePAM Oral Tablet 10 MG (02/19/2022) TAKE 1 TABLET 60 MIN BEFORE TEST Atorvastatin Calcium Oral Tablet 40 MG (11/18/2022) FLUoxetine HCl Oral Capsule 40 MG (01/26/2022) Enalapril Maleate Oral Tablet 10 MG (01/26/2022) TAKE 1 TABLET BY MOUTH EVERY DAY Erythromycin Ophthalmic Ointment 5 MG/GM (02/09/2022) APPLY 1 A SMALL AMOUNT LEFT EYE 4 TIMES A DAY Atorvastatin Calcium Oral Tablet 20 MG (01/26/2022) TAKE 1 TABLET BY MOUTH EVERY DAY Spironolactone Oral Tablet 25 MG (06/15/2023) TAKE 0.5 TABLETS BY MOUTH ONCE DAILY. Jardiance Oral Tablet 25 MG (06/14/2023) TAKE 1 TABLET BY MOUTH EVERY DAY WITH BREAKFAST Furosemide Oral Tablet 40 MG (11/18/2022) HumuLIN R U-500 KwikPen Subcutaneous Solution Pen-injector 500 UNIT/ML (06/14/2023) INJECT 40 UNITS SUBCUTANEOUSLY AT BREAKFAST, 100 UNITS AT LUNCH, 80 UNITS AT SUPPER. metFORMIN HCl Oral Tablet 1000 MG (11/23/2022) TAKE 1 TABLET BY MOUTH TWICE DAILY WITH MEALS. E11.3599 ALLERGIES: Amoxicillin Unknown Band-Aid [place] Surg Dressing Other Bandaging Tape Other PAST MEDICAL HISTORY: Podiatry History remarkable for Foot Numbness, Fungal Nails, Leg or Foot Ulcers. The patient has a past medical history of Arthritis, Depression, DM-Medication Dependent, Poor Circulation. Neuropathy High Cholesterol SURGICAL HISTORY: Hand Tonsils HOSPITALIZATIONS: None Noted SOCIAL HISTORY: Smoking Status: Never smoker; Last Reviewed: 12/08/2023 Alcohol use: social drinker No drug use Social History Reviewed (01/16/2021 11:20:18 AM EST) FAMILY HISTORY: There is a family history of Denial of any knowledge of significant family history. Denial of any knowledge of significant family history Family History Reviewed (01/16/2021 11:20:19 AM EST) REVIEW OF SYSTEMS: Psychologic: Admits to No psych symptoms. Review of systems otherwise negative PHYSICAL EXAMINATION: Vital Signs: Weight 235 lbs; Height 5 ft 8 in; BMI 35.7 01/16/2025 10:38 AM (EST) Temperature 98.6 F; Pulse Rate 100 bpm; Blood Pressure 120 / 80 mm/Hg Vascular Exam: DP pulses of the RIGHT and LEFT foot are +1/4 PT pulses of the RIGHT and LEFT foot are +1/4 CFT is within normal limits, less than 3s to all digits, both feet. Skin temperature from proximal to distal is warm to warm, both feet. BL LE edema Dermatologic Exam: LEFT posterior Achilles lower leg wound predebridement measures 8.1x2.9x0.1cm and post debridement measures 8.3x3.1x0.4cm with 85:15 granular fibrotic base, surrounding slough, no surrounding edema and erythema, no purulence expressed, no probe to bone, no malodor, moderate serosanginous drainage. Into level of SUBCUTANEOUS TISSUE. RIGHT posterior Achilles lower leg cluster wound predebridement measures 9.6x4.1x0.7cm and post debridement measures 9.6x3.5x0.5cm with 90:10 granular fibrotic base, surrounding slough, no surrounding edema and no erythema, no purulence expressed, no probe to bone-Exposed achilles tendon posteriorly with fraying and complete RUPTURE and tracking to calcaneus, no malodor, moderate serosanginous drainage. Into level of FAT. LEFT foot 2nd toe tuft hyperkeratotic tissue Nails 2-5 left are thickened, elongated and discolored with subungual debris. The nails are greater than .3mm in thickness. The discoloration is yellowish in color. Innerspaces 1-4 LT are clean dry and intact. Skin texture and turgor are decreased. absent or decreased hair growth bilateral. chronic lower leg red hyperpigmentation Neurologic Exam: Comments/Other Findings: Vibratory sensations decreased LT, Protective sensations absent LT tested with 5.07 monofilament, and light, sharp, and temperature sensations intact LT. Normal Babinski test noted bl foot after testing Orthopedic Exam: Additional Orthopedic Findings: RIGHT foot toe amputations 1,2,3,4,5 LEFT 2nd hammertoe contracture semi- rigid BL foot with absent plantar flexion 0/5 muscle strength with palpable rupture to achilles tendon DIAGNOSIS: Type II diabetes mellitus with neurological manifestations PVD (peripheral vascular disease) Amputated toe of right foot Personal history of diabetic foot ulcer Callus Onychomycosis Venous ulcer of left lower extremity without varicose veins Ulcer of left lower extremity, limited to breakdown of skin Venous ulcer of right lower extremity without varicose veins Ulcer of right lower extremity, limited to breakdown of skin 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 Diabetic foot ulcer Diabetic leg ulcer Achilles rupture, left 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 Achilles rupture, right Ulcer of left foot with fat layer exposed 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 No fractures or dislocations noted. No soft tissue emphysema noted. No osteopenia or sclerosis noted. tibial and fibular sesamoid excised, there is small calcified piece of fibular sesamoid bone noted to plantar lateral 1st met. RT foot amp at MTPJ 1,2,3,4,5. no lytic lesions. no soft tissue gas noted. 08/17/24 Xray left foot: No radiographic presence of OM 08/17/24 Xray tib/fib left leg: No radiographic presence of OM 08/17/24 Xray tib/fib right leg: No radiographic presence of OM 08/17/24 CRP: 13.6 and 08/18/24 ESR: 97 04/05/24 PVR b/l leg: Left MANJEET 0.9 and Right 0.95 08/18/24 Left leg wound culture: Few pseudomonas aeruginosa FINAL 08/18/24 MRI BL LE: 1. No drainable soft tissue abscess or evidence for osteomyelitis 2. Diffuse edema/cellulitis and fatty muscle atrophy with nonspecific myositis. 01/17/25 albumin: 3.1 11/27/24 right achilles wound Cx: MSSA, Streptococcus agalactiae (group b streptococcus) Abnormal, Proteus mirabilis Abnormal 12/15/24 right foot XR: Interval amputation of the 3rd, 4th and 5th toes. Previous 1st and 2nd toe amputations. Stable chronic deformities of the distal 2nd and 5th metatarsals. No acute fracture. Midfoot osteoarthrosis and postoperative soft tissue swelling. Soft tissue suction device adjacent to the distal tibia and posterior skin clint. 12/15/24 right achilles wound Cx: MRSA and Proteus mirabilis and Mixed anaerobic judy 4/11/25 right calcaneus bone Cx: Enterococcus faecalis Abnormal and Proteus mirabilis and Mixed anaerobic judy PATH: Cancellous bone with reactive changes, negative for osteomyelitis LEFT posterior achilles lower leg ulcer has improved. RIGHT posterior achilles lower leg ulcer improved. LEFT posterior achilles lower leg ulcer treated with sharp excisional debridement carried out of the wound with non selective sharp excisional debridement past the dermis into SUBCUTANEOUS level with use of curette and 15 scalpel blade. Devitalized tissue removed. We then flushed out the wound with wound wash sterile saline. Area numbed with lidocaine gel if sensate prior. RIGHT posterior Achilles lower leg ulcer treated with sharp excisional debridement carried out of the wound with non selective sharp excisional debridement past the dermis into FASCIA and FAT level with use of curette and 15 scalpel blade. Devitalized tissue removed and we then flushed out the wound with wound wash sterile saline. Area numbed with lidocaine gel if sensate prior. Discussed importance in offloading, proper nutrition including blood sugar control and getting enough protein and vitamins, infection prevention, and proper wound care in wound healing. Also discussed detrimental impact of smoking on healing. Reviewed proper wound care with patient. To not soak wound but to clean appropriately. To watch for signs of infection both local and systemic. These were reviewed with the patient. If seen to contact office or go to ED. To continue wound care consisting of washing the wound with soap and water or vashe solution soaked gauze for 3-5 minutes. Then to apply dressing consisting of graft to right side covered by adaptic, steristrips, drawtex, abd, gauze wrap. On Left apply endoform, adaptic, abd, gauze wrap to be changed every other day. Patient has findings concerning for osteomyelitis. Discussed conservative and surgical options. Discussed IV antibiotics and wound care vs amputation with patient. Offered referral to infectious disease. Discussed all risks and benefits of all options. All questions were answered. Patient elects to proceed with CONSERTATIVE treatment plan. follow up with ID, Dr Barnes as scheduled. To start IV abx per ID for 6 weeks vancomycin and ceftriaxone and Flagyl. can discontinue the wound vac Discussed with both achilles ruptured she will struggle with push off in gait. Discussed achilles likely ruptured due to chronic ulceration with infections and drying out of tendon. Discussed if we can get her healed she will need AFO to aid in walking. Discussed she is at high risk for BKA BL, right moreso than left. Discussed she can weight bear as tolerated. Discussed need assist for activities as she is a high fall risk. Discussed limiting motion at ankle joint to stop tugging on wounds to aid in healing. Discussed need to balance this with maintaining muscle. Discussed need for better nutrition Patient educated on the importance of proper nutrition to help optimize healing. Discussed eating three balanced meals daily and meal preparation. Discussed importance of high protein intake. Discussed supplementation drinks such as ensure, glucerna, nepro, tamiko. Discussed need for blood sugar control, proper vitamin intake whether dietary or through supplementation. Discussed Vitamin C, Multi Vitamin, zinc, and magnesium supplementation. Discussed may need to watch sodium intake as well especially if patient experiences swelling. Offered nutrition referral. Patient taking protein supplement drink BID between meals A procedural pause was conducted immediately prior to starting the wound debridement to verify correct patient identity using two patient identifiers: the correct site and correct procedure. Permission from the patient to perform the procedure was obtained. We prepared the site for the graft application with remove the devitalized tissue and then doing cross hatching and preparing base with to promote a healthy, active wound edge to support healing. The wound base was 100% granular after prepping. Hemostasis was achieved with direct pressure. The wound was then copiously irrigated with saline. Patient tolerated this well without complications. FIRST application of APLIFGRAF skin graft to RIGHT achilles wound. After site was cleaned and prepped skin graft was applied to the area. This was secured with adaptic touch and steri strips. Site was covered drawtex, gauze, and gauze roll. This is to clean, dry and intact until next appointment. Outer dressing above the steri strips can be changed for saturation every 2-3 days or PRN Follow up 1-2 week for wound check and graft application Type II diabetes mellitus with neurological manifestations 250.60 E11.49 Diagnosis Notes Drag & Drop to change diagnosis order PVD (peripheral vascular disease) 443.9 I73.9 Diagnosis Notes Drag & Drop to change diagnosis order Amputated toe of right foot 895.0 S98.131A Diagnosis Notes Drag & Drop to change diagnosis order Personal history of diabetic foot ulcer V12.29 Z86.31 Diagnosis Notes Drag & Drop to change diagnosis order Callus 700 L84 Diagnosis Notes Drag & Drop to change diagnosis order Onychomycosis 110.1 B35.1 Diagnosis Notes Drag & Drop to change diagnosis order Venous ulcer of left lower extremity without varicose veins 459.81 I87.2 Diagnosis Notes Drag & Drop to change diagnosis order Ulcer of left lower extremity, limited to breakdown of skin 707.10 L97.921 Diagnosis Notes Drag & Drop to change diagnosis order Venous ulcer of right lower extremity without varicose veins 459.81 I87.2 Diagnosis Notes Drag & Drop to change diagnosis order Ulcer of right lower extremity, limited to breakdown of skin 707.10 L97.911 Diagnosis Notes Drag & Drop to change diagnosis order 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 707.13 L97.323 Diagnosis Notes Drag & Drop to change diagnosis order Diabetic foot ulcer 250.80 E11.621 Diagnosis Notes Drag & Drop to change diagnosis order Diabetic leg ulcer 250.80 E11.622 Diagnosis Notes Drag & Drop to change diagnosis order Achilles rupture, left 845.09 S86.012A Diagnosis Notes Drag & Drop to change diagnosis order 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 707.13 L97.312 Diagnosis Notes Drag & Drop to change diagnosis order Achilles rupture, right 845.09 S86.011A Diagnosis Notes Drag & Drop to change diagnosis order Ulcer of left foot with fat layer exposed 707.15 L97.522 Diagnosis Notes Drag & Drop to change diagnosis order 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 707.13 L97.314 Diagnosis Notes Drag & Drop to change diagnosis order Foot osteomyelitis, right 730.27 M86.9 Diagnosis Notes Drag & Drop to change diagnosis order Ulcer of left foot, limited to breakdown of skin 707.15 L97.521 Diagnosis Notes Drag & Drop to change diagnosis order Diabetic ulcer of left ankle, limited to breakdown of skin 250.80 E11.622 Diagnosis Notes Drag & Drop to change diagnosis order Diabetic ulcer of right ankle with fat layer exposed 250.80 E11.622 Nursing Documentation Pertinent Medical History: DM2, HTN, venous insufficiency, & heart failure Wound Etiology according to patient: wounds started February 2024 Pt had right great toe amputation June 18, 2023 Patient arrived via: Ambulatory with cane Home Care Company/Nursing Facility: [facility] Consent captured for debridement per Hu Pickard DPM and good until April 2025 Anticoagulant Therapy: ASA 81mg ACTIVE CARE PER PROVIDER: Hu Pickard DPM Application Dates: Grafts are complete 01/07/2023 Apligraf 01/15/2023 Apligraf 01/21/2023 Apligraf 01/27/2023 Apligraf 02/04/2023 Apligraf Graft placed in the OR 12/15/24 with Hu Pickard DPM to Left and Right Achilles removed by Dr. Marti 01/04/25 Wounds 1-38 previously closed 40, 41 closed 43-56 closed ___ WOUND ASSESSMENT: Refer to Provider's Wound Assessment Note VASCULAR ASSESSMENT BY PROVIDER: See provider wound assessment note CHF History: Yes as of February 2022, Dr. Sadler in Cardiology EDEMA: Right Foot: 4+ Right ankle: 4+ Right Calf: 4+ Left Foot: 4+ Left ankle: 4++ Left Calf: 4+ MEASUREMENTS: in CM Right Calf: 36.5 Right Ankle: 24.5 Left Calf: 33.0 Left Ankle: 23.5 Length: 43.0 not measured at visit WOUND PHOTOGRAPHY: (date taken 01/12/25) DEBRIDEMENT PROCEDURE BY PROVIDER: Anesthetic Used: lido gel 2% applied per Shelley R Other procedure: N/A Specimen collected: N/A WOUND TREATMENT PER MD ORDER: Wounds cleansed by mechanical debridement to allow provider to visualize wound base\ *Silicone Allergy LEFT LOWER LEG WOUNDS WOUND # 42 - LOCATION: Left Achilles (NEW 07/26/24) L: 8.3 cm x W: 3.1 cm x D: 0.4 cm - tendon exposed Cleansed with: saline Applied to naya-wound skin: skin prep Applied to wound bed: Endoform, adaptic, drawtex Covered and secured with: 4x4's, abd, kerlix, tape 4 olegario wrap to foot and ankle with 6 to lower leg from behind the toes to 1 below the knee - - - - - - - - - - - - - - - - - - - - - - - - - - - - - - - - - - - - - - - - - - - - - - - - - - - - - - - - - - - - - - - - - - - - - - RIGHT LOWER LEG WOUNDS Application Dates: 01/19/2025 Apligraf applied - Organogenesis 2. 3. 4. 5. Graft was prepared using 0.9% saline solution per medication reconciliation technician instructions. 0.9% saline solution Lot #: [id number] Expiration Date: 10/06/2027 Organogenesis - APLIGRAF: 44.0 cm 75% used with 25% wasted - applied by Hu Pickard DP @ time: 1040 LOT #:[id number] EXP: 01/26/2025 PH: 6.8 -7.5 ITM: [id number] Serial #: [id number] WOUND # 39 LOCATION: Right Achilles L: 9.6 cm x W: 3.5 cm x D: 0.5 cm - Small amount of Tendon exposed Cleansed with: saline Applied to naya-wound skin: skin prep, Applied to wound bed: Apligraf, adaptic, steri-strips, drawtex, Covered and secured with: 4x4's, ABD, kerlix, tape 4 olegario wrap to foot and ankle with 6 to lower leg from behind the toes to 1 below the knee - - - - - - - - - - - - - - - - - - - - - - - - - - - - - - - - - - - - - - - - - - - - - - - - - - - - - - - - - - - - - - - - - - - - - - - COMPRESSION: NO COMPRESSION. Gentle olegario wraps only to secure dressings OLEGARIO WRAP/SurePress/Tubi-tobacco wetter: Foot is warm and pink before and after application. It was demonstrated to the patient how to check for adequate circulation. Patient voices understanding. If circulation becomes compromised by a change in color, increased pain, numbness or tingling to the area, the patient knows to remove the compression and elevate the leg above the heart. SPECIAL NEEDS: Coordination of care - AVS faxed to [facility] - Sheela Renae to Bessy nurse at the [facility] to request updated medication list. Nurse to fax over today. Emotional support N/A OR set-up N/A Yarn Examiner N/A Incontinence needs N/A DME company: ordered 03/01/24 Farrow wraps, Supplies ordered 06/07/2024 x 30 days with 2 refills, PICC line with IV antibiotics ordered today 12/19/24 DISCHARGED in stable condition to: back to [facility] with transport PLAN/ORDERS: Follow-up in the Wound Center with Dr Pickard February 02 for the 2nd apligraf Dr. Barnes in 6 weeks on 01/30/2025 at 1:00PM Continue HBOT until notified to stop. Continue aggressive nutritional support to assist wound healing, focusing on increasing protein intake, keeping blood sugars stable/controlled Blood sugars must be kept below 150 for wound healing Patient is a High Fall Risk due - UP WITH ASSIST ONLY HAVE PATIENT ATTEMPT CHAIR YOGA EXERCISES - LIMITED ANKLE MOVEMENT WEIGHT BEARING TOLERATED Please give patient premiere diabetic protein shakes 2 x daily between meals. Please send an updated medical list with patient for each visit. OTHER EDUCATION: Skin graft Education performed regarding lymphedema/edema: n/a Elevation of extremity above the heart for 30 minutes three times daily and as needed Exercise such as writing the ABC's with your toes in the air, walking and/or calf pumps Wearing compression as ordered by provider Diet controlling of sodium as instructed by provider Use of medication to help control edema. UNIVERSAL PROTOCOL / SAFETY CHECKLIST Procedure to be Performed: Serial Sharp Wound Debridement. Lower extremities Sign In: 1025 A Moment of CARE was completed. Appropriate PPE (Personal Protective Equipment) worn by all providers involved with the procedure. Special equipment utilized Curette. Patient/Surrogate Stated/Verified: Patient name, Date of , Relevant allergies, and The intended procedure Time Out: 1027 Relevant labs, photos, and/or imaging studies have been reviewed. Intended patient and procedure match the source document(s) (e.g. consent, H&P, associated studies [imaging, pathology]) match the intended patient and procedure. Consent obtained and matches the intended procedure. Yes. Correct side/site is not applicable. Medications required for this procedure are verified. Fire risk assessed and is not applicable. Implants: are not applicable. Sign Out: 1036 Specimens not collected. All instruments, equipment, possible retained foreign bodies are accounted for. Yes. The post-procedure plan of care has been communicated to the patient or surrogate. Current HBOT - Stephenie in to evaluate documented in this encounter [facility] 01-19-2025 Telephone encounter Note Called pt, no answer. Sent [employer] message [facility] 01-19-2025 Instructions Bonnie Molina RN - 01/19/2025 10:19 AM EDT WOUND CARE INSTRUCTIONS- Shade Brambila Wound location: Bilateral Lower Legs [facility]: FAX: [phone] Discontinue the wound vac today 01/19/25 Apligraf was applied today. It will remain in place for two weeks. You may change the outer dressing ONLY of the graft sites. If the entire dressing is removed for any reason, please use the alternate dressing until patient returns to the wound center. DO NOT USE VASHE' with graft Right Achilles: Apligraf Graft may change outer dressing only Please leave the steri-strips intact Apply Drawtex over top of the adaptic Apply 4x4's, abd pad Secure with kerlix wrap, tape Change Every other day and as needed 4 olegario wrap to foot and ankle with 6 to lower leg Left Achilles graft site with steri-strips (change the outer dressing only) Please leave the steri-strips intact Apply Drawtex over top of the adaptic Apply 4x4's, abd pad Secure with kerlix wrap, tape Change Every other day and as needed 4 olegario wrap to foot and ankle with 6 to lower leg The section that does not have steri-strips: Left Achilles Cleanse with saline solution, pat dry Please apply Endoform moistened with saline bumpy side down Apply a layer of adaptic 4x4's, abd pad Secure with kerlix wrap. Tape Changed every other day and as needed 4 olegario wrap to foot and ankle with 6 to lower leg Right / Left Achilles (Use only if above dressings are removed) - Apply vashe moistened gauze soak for 5 to 10 minutes. Remove and pat dry with gauze. - Apply Endoform to the wound base. - Apply 4x4's - Place ABD pad over achilles and Heel cup ABD on heel. - Wrap with Kerlix and secure with tape. - Change dressing every other day and as needed to maintain a clean dry dressing. 4 olegario wrap to foot and ankle with 6 to lower leg from behind the toes to 1 below the knee - Avoid sitting with legs in a dependent position or standing for long periods of time. - Attempt to lay flat and elevate your legs above the level of your heart 2-3 times daily, for 30 minutes at a time. - Be sure to continue walking and/or calf pumps and exercises to mimic writing the alphabet with your foot, as instructed Foot care Many people with diabetes lose the feeling in their feet (neuropathy). Therefore, they might not know they have an injury that can lead to serious problems, such as foot removal (amputation). By taking care of your feet, most serious problems can be prevented. If you have problems checking your own feet, have a family member or friend help you. Easy steps to protect your feet: Check your feet every day for: dry or cracked skin, cuts, open sores, blisters, redness, swelling, corns, calluses, or toenail problems. Use a mirror if necessary. Report any problems to your doctor. Keep your feet clean and dry, especially between the toes. If your feet are dry or cracked use a moisturizing lotion at least daily but never between the toes. See your judicial clerk every three months for foot and nail care. Don't go barefoot. Wear shoes or slippers at all times. Wear comfortable shoes that fit well. Check inside your shoes for foreign objects or rough spots before putting on shoes. Always wear socks. Avoid using anything hot, such as heating pads, hot water bottles, hot tubs, or bath water. Check the temperature of bath water with your elbow not your foot. Take your shoes and socks off at every office visit to remind your doctor to check your feet. Also, never tape a dressing directly to the skin on your legs or feet. Instead, use a self-adherent bandage to avoid injuring the skin on your lower extremities If calluses form they can cause wound ulcers to appear under the callus, must be seen by [employer] every three months to prevent. Maintain controlled blood sugar, if blood sugar is consistently above 200 this can delay wound healing and aggravate neuropathy. To give your wound the best chance to heal: - Eat three balanced meals daily focusing on the protein - Control your blood sugar. Keep blood sugar less than 200 - Complete your wound care instructions as ordered - Vitamin C 500 mg twice daily - Multiple Vitamin Daily - Drink a protein shake daily - Premiere Clear or Glucerna for Diabetic patients, Nepro for renal patients and premiere for non-renal and non-diabetic patients PLEASE ATTEMPT TO FEED THE PATIENT A DIABETIC DIET Diabetic Premiere Protein Shakes 2 x daily between meals May ambulate with Assistance Physical Therapy to assess what level of aid the patient needs to ambulate with assistance Patient may bear weight Report any of the following signs and symptoms of infection to the Wound Center at [phone] or go to the Emergency Department: Fever or chills Increased drainage Green or yellow drainage Foul odor Increased pain Hardness around the wound Redness, warmth or swelling of the surrounding tissue Color change to the wound Evenings / Weekends / Holidays If you call the wound center at the phone number provided above, please leave a detailed message that includes your full name, birthday, and phone number. We are seeing patients during the day, so we will return your call within a 24-48 hr period in the order your call was received. There is not an on-call provider assigned to the wound center. If you have an emergency that needs to be addressed, please go to an Urgent Care or Emergency Room. Thank you for your cooperation and understanding. If you are feeling ill, please call to reschedule your appointment. If you believe your illness to be wound related, call and leave a message using the directions above describing your symptoms. If you cannot wait 24-48 hrs for a callback, please get evaluated in the nearest emergency department. PLAN/ORDERS: Follow-up in the Wound Center with Dr Pickard February 02 for the 2nd apligraf Dr. Barnes in 6 weeks on 01/30/2025 at 1:00PM Continue HBOT until notified to stop. Continue aggressive nutritional support to assist wound healing, focusing on increasing protein intake, keeping blood sugars stable/controlled Blood sugars must be kept below 150 for wound healing Patient is a High Fall Risk due - UP WITH ASSIST ONLY HAVE PATIENT ATTEMPT CHAIR YOGA EXERCISES - LIMITED ANKLE MOVEMENT WEIGHT BEARING TOLERATED Please give patient premiere diabetic protein shakes 2 x daily between meals. Please send an updated medical list with patient for each visit. Hu Pickard DPM/celina/lt/tr documented in this encounter [facility] 01-19-2025 Note [facility] 01-18-2025 Telephone encounter Note NORA 11/17/24 Reece NOV 02/21/25 Newell [facility] 01-16-2025 Telephone encounter Note January 15 labs reviewed, no changes Vanc trough wnl at 18.7 EOS elevated at 11.5% Will monitor for abn s/s The tubes were taken to [facility] The results were attached to the M drive [facility] 01-15-2025 Note [facility] 01-15-2025 History of Presen t illness Narrative Date of Visit: 01/12/2025 Problem list reviewed. CHIEF COMPLAINT: SP RIGHT ankle I&D and calcaneal bone biopsy and LEFT wound debridement and graft application 12/15/24 check B/L lower leg wounds and check RIGHT lower leg wounds DM II A1c 7.4 (10/25/24) DLS 02/08/24 ADM 08/17/24 HISTORY OF PRESENT ILLNESS: Patient presents for BL leg wound check. She believes the right leg wound is doing better since surgery. She saw Dr Barnes and is on IV and oral abx. She has had no issues with graft or with wound vac. She is doing HBO. She states pain is a 2/10. She relates she can't feel feet well and gets numbness. She is trying to get into the assisted living section of [facility]. She relates she sold her house. Hx She was admitted 08/17/24 and was DC to [facility] where she is still at. She was DC on cipro and flagyl which she finished taking. She relates her insurance wouldn't cover it so she is self paying and planning on going to the nonskilled assistive living side soon. She is at [facility]. Patient is taking protein drinks. Referred by aircraft hydraulic equipment mechanic, Dr. Dasilva. Patient is DM and sees aircraft hydraulic equipment mechanic Denies N/V/F/C/D/SOB/CP/LP. PCN allergy Hx RT 3rd perc flexor tenotomy (07/26/23) HX R great toe amputation 06/18/23, excision tibial and fibular sesamoid, bone biopsy first met head. Right 2nd toe amputation and hallux I&D 10/28/22. Hx s/p RT toe amp 3,4,5 (DOS 10/14/23) DME DM inserts 08/24/23 rx circade wraps 08/14/22 CURRENT MEDICATIONS: oxyCODONE HCl Oral Tablet 5 MG (07/05/2024) Take 1 tablet every 12 hours as needed for 7 day(s) Percocet Oral Tablet 5-325 MG (07/20/2024) Take 1 tablet every 12 hours as needed for 7 day(s) oxyCODONE-Acetaminophen Oral Tablet 5-325 MG (10/28/2022) Ketorolac Tromethamine Ophthalmic Solution 0.5 % (04/26/2023) Accu-Chek Jose Plus In Vitro Strip (09/23/2022) Atorvastatin Calcium Oral Tablet 80 MG (06/13/2023) miSOPROStol Oral Tablet 200 MCG (06/15/2023) TAKE 2 TABLETS BY MOUTH THE DAY PRIOR TO PROCEDURE AT BEDTIME WITH FOOD Fluticasone Propionate Nasal Suspension 50 MCG/ACT (12/15/2022) USE 2 SPRAYS IN EACH NOSTRIL DAILY X1 WEEK,THEN 1 SPRAY IN EACH NOSTRIL DAILY THEREAFTER NEEDED Nitrofurantoin Monohyd Macro Oral Capsule 100 MG (02/08/2023) Fluconazole Oral Tablet 200 MG (03/20/2024) TAKE 1 TABLET EVERY DAY FOR 21 DAYS Bactrim DS Oral Tablet 800-160 MG (06/24/2023) Take 1 tablet twice a day for 10 day(s) Ofloxacin Ophthalmic Solution 0.3 % (03/30/2023) diazePAM Oral Tablet 10 MG (02/19/2022) TAKE 1 TABLET 60 MIN BEFORE TEST Atorvastatin Calcium Oral Tablet 40 MG (11/18/2022) FLUoxetine HCl Oral Capsule 40 MG (01/26/2022) Enalapril Maleate Oral Tablet 10 MG (01/26/2022) TAKE 1 TABLET BY MOUTH EVERY DAY Erythromycin Ophthalmic Ointment 5 MG/GM (02/09/2022) APPLY 1 A SMALL AMOUNT LEFT EYE 4 TIMES A DAY Atorvastatin Calcium Oral Tablet 20 MG (01/26/2022) TAKE 1 TABLET BY MOUTH EVERY DAY Spironolactone Oral Tablet 25 MG (06/15/2023) TAKE 0.5 TABLETS BY MOUTH ONCE DAILY. Jardiance Oral Tablet 25 MG (06/14/2023) TAKE 1 TABLET BY MOUTH EVERY DAY WITH BREAKFAST Furosemide Oral Tablet 40 MG (11/18/2022) HumuLIN R U-500 KwikPen Subcutaneous Solution Pen-injector 500 UNIT/ML (06/14/2023) INJECT 40 UNITS SUBCUTANEOUSLY AT BREAKFAST, 100 UNITS AT LUNCH, 80 UNITS AT SUPPER. metFORMIN HCl Oral Tablet 1000 MG (11/23/2022) TAKE 1 TABLET BY MOUTH TWICE DAILY WITH MEALS. E11.3599 ALLERGIES: Amoxicillin Unknown Band-[place] Surg Dressing Other Bandaging Tape Other PAST MEDICAL HISTORY: Podiatry History remarkable for Foot Numbness, Fungal Nails, Leg or Foot Ulcers. The patient has a past medical history of Arthritis, Depression, DM-Medication Dependent, Poor Circulation. Neuropathy High Cholesterol SURGICAL HISTORY: Hand Tonsils HOSPITALIZATIONS: None Noted SOCIAL HISTORY: Smoking Status: Never smoker; Last Reviewed: 12/08/2023 Alcohol use: social drinker No drug use Social History Reviewed (01/16/2021 11:20:18 AM EST) FAMILY HISTORY: There is a family history of Denial of any knowledge of significant family history. Denial of any knowledge of significant family history Family History Reviewed (01/16/2021 11:20:19 AM EST) REVIEW OF SYSTEMS: Psychologic: Admits to No psych symptoms. Review of systems otherwise negative PHYSICAL EXAMINATION: Vital Signs: Weight 235 lbs; Height 5 ft 8 in; BMI 35.7 01/09/2025 1:20 PM (EST) Temperature 98.6 F; Pulse Rate 100 bpm; Blood Pressure 120 / 80 mm/Hg Vascular Exam: DP pulses of the RIGHT and LEFT foot are +1/4 PT pulses of the RIGHT and LEFT foot are +1/4 CFT is within normal limits, less than 3s to all digits, both feet. Skin temperature from proximal to distal is warm to warm, both feet. BL LE edema Dermatologic Exam: LEFT posterior Achilles lower leg wound predebridement measures 8.7x2.2x0.1cm and post debridement measures 8.9x2.4x0.6cm with 85:15 granular fibrotic base, surrounding slough, no surrounding edema and erythema, no purulence expressed, no probe to bone, no malodor, moderate serosanginous drainage. Into level of SUBCUTANEOUS TISSUE. RIGHT posterior Achilles lower leg cluster wound predebridement measures 9.6x4.1x0.7cm and post debridement measures 9.7x4.2x0.8cm with tunnelling at 6 o'clock for 1.1cm, 60:40 granular fibrotic base, surrounding slough, no surrounding edema and no erythema, no purulence expressed, no probe to bone-Exposed achilles tendon posteriorly with fraying and complete RUPTURE and tracking to calcaneus, no malodor, moderate serosanginous drainage. Into level of FAT. LEFT foot 2nd toe tuft hyperkeratotic tissue Nails 2-5 left are thickened, elongated and discolored with subungual debris. The nails are greater than .3mm in thickness. The discoloration is yellowish in color. Innerspaces 1-4 LT are clean dry and intact. Skin texture and turgor are decreased. absent or decreased hair growth bilateral. chronic lower leg red hyperpigmentation Neurologic Exam: Comments/Other Findings: Vibratory sensations decreased LT, Protective sensations absent LT tested with 5.07 monofilament, and light, sharp, and temperature sensations intact LT. Normal Babinski test noted bl foot after testing Orthopedic Exam: Additional Orthopedic Findings: RIGHT foot toe amputations 1,2,3,4,5 LEFT 2nd hammertoe contracture semi- rigid BL foot with absent plantar flexion 0/5 muscle strength with palpable rupture to achilles tendon DIAGNOSIS: Type II diabetes mellitus with neurological manifestations PVD (peripheral vascular disease) Amputated toe of right foot Personal history of diabetic foot ulcer Callus Onychomycosis Venous ulcer of left lower extremity without varicose veins Ulcer of left lower extremity, limited to breakdown of skin Venous ulcer of right lower extremity without varicose veins Ulcer of right lower extremity, limited to breakdown of skin 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 Diabetic foot ulcer Diabetic leg ulcer Achilles rupture, left 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 Achilles rupture, right Ulcer of left foot with fat layer exposed 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 No fractures or dislocations noted. No soft tissue emphysema noted. No osteopenia or sclerosis noted. tibial and fibular sesamoid excised, there is small calcified piece of fibular sesamoid bone noted to plantar lateral 1st met. RT foot amp at MTPJ 1,2,3,4,5. no lytic lesions. no soft tissue gas noted. 08/17/24 Xray left foot: No radiographic presence of OM 08/17/24 Xray tib/fib left leg: No radiographic presence of OM 08/17/24 Xray tib/fib right leg: No radiographic presence of OM 08/17/24 CRP: 13.6 and 08/18/24 ESR: 97 04/05/24 PVR b/l leg: Left MANJEET 0.9 and Right 0.95 08/18/24 Left leg wound culture: Few pseudomonas aeruginosa FINAL 08/18/24 MRI BL LE: 1. No drainable soft tissue abscess or evidence for osteomyelitis 2. Diffuse edema/cellulitis and fatty muscle atrophy with nonspecific myositis. 10/01/24 albumin: 3.3 11/27/24 right achilles wound Cx: MSSA, Streptococcus agalactiae (group b streptococcus) Abnormal, Proteus mirabilis Abnormal 12/15/24 right foot XR: Interval amputation of the 3rd, 4th and 5th toes. Previous 1st and 2nd toe amputations. Stable chronic deformities of the distal 2nd and 5th metatarsals. No acute fracture. Midfoot osteoarthrosis and postoperative soft tissue swelling. Soft tissue suction device adjacent to the distal tibia and posterior skin clint. 12/15/24 right achilles wound Cx: MRSA and Proteus mirabilis and Mixed anaerobic judy 12/15/24 right calcaneus bone Cx: Enterococcus faecalis Abnormal and Proteus mirabilis and Mixed anaerobic judy PATH: Cancellous bone with reactive changes, negative for osteomyelitis LEFT posterior achilles lower leg ulcer has improved. RIGHT posterior achilles lower leg ulcer improved. LEFT posterior achilles lower leg ulcer treated with sharp excisional debridement carried out of the wound with non selective sharp excisional debridement past the dermis into SUBCUTANEOUS level with use of curette and 15 scalpel blade. Devitalized tissue removed. We then flushed out the wound with wound wash sterile saline. Area numbed with lidocaine gel if sensate prior. RIGHT posterior Achilles lower leg ulcer treated with sharp excisional debridement carried out of the wound with non selective sharp excisional debridement past the dermis into FASCIA and FAT level with use of curette and 15 scalpel blade. Devitalized tissue removed and we then flushed out the wound with wound wash sterile saline. Area numbed with lidocaine gel if sensate prior. Discussed importance in offloading, proper nutrition including blood sugar control and getting enough protein and vitamins, infection prevention, and proper wound care in wound healing. Also discussed detrimental impact of smoking on healing. Reviewed proper wound care with patient. To not soak wound but to clean appropriately. To watch for signs of infection both local and systemic. These were reviewed with the patient. If seen to contact office or go to ED. To continue wound care consisting of washing the wound with soap and water or vashe solution soaked gauze for 3-5 minutes. Then to apply dressing consisting of noted below Patient has findings concerning for osteomyelitis. Discussed conservative and surgical options. Discussed IV antibiotics and wound care vs amputation with patient. Offered referral to infectious disease. Discussed all risks and benefits of all options. All questions were answered. Patient elects to proceed with CONSERTATIVE treatment plan. follow up with ID, Dr Barnes as scheduled. To start IV abx per ID for 6 weeks vancomycin and ceftriaxone and Flagyl. RIGHT side wound vac only. Discussed need to fill in the deficit from BL achilles rupture as well as to get coverage over achilles. Discussed wound vac is best option. Discussed would is now appropriate for grafting, will apply. Discussed need to try and prevent more wounds form the drape Discussed with both achilles ruptured she will struggle with push off in gait. Discussed achilles likely ruptured due to chronic ulceration with infections and drying out of tendon. Discussed if we can get her healed she will need AFO to aid in walking. Discussed she is at high risk for BKA BL, right moreso than left. Discussed she can weight bear as tolerated. Discussed need assist for activities as she is a high fall risk. Discussed limiting motion at ankle joint to stop tugging on wounds to aid in healing. Discussed need to balance this with maintaining muscle. Discussed need for better nutrition Patient educated on the importance of proper nutrition to help optimize healing. Discussed eating three balanced meals daily and meal preparation. Discussed importance of high protein intake. Discussed supplementation drinks such as ensure, glucerna, nepro, tamiko. Discussed need for blood sugar control, proper vitamin intake whether dietary or through supplementation. Discussed Vitamin C, Multi Vitamin, zinc, and magnesium supplementation. Discussed may need to watch sodium intake as well especially if patient experiences swelling. Offered nutrition referral. Patient taking protein supplement drink BID between meals Follow up 1-2 week for wound check. All changes to wound vac settings and wound care must be cleared through Dr. Pickard prior to any changes being made. Stop White Foam as of 01/12/25 The pressure must remain at 175 due to the amount of tracking that must be done for the wounds Right Achilles: (WOUND VAC) [facility] Recommended Settings: 175 mmHg, continuous Intensity High Continuous suction Wound Vac: - Apply Skin prep to naya-wound skin - Apply thin Duoderm to naya-wound skin surrounding wound. - Apply Saul seal to surrounding wound. - Apply Clear vac drape to all skin where foam will be placed and for bridged areas: It is imperative to have all skin covered with clear drape where the black foam will be placed. - Apply saline moistened promogran to wound base plus the tunneled area - Black foam to wound bed Apply a black foam bolster of the distal end of wound where tunnel was located - Track pad to be placed avoiding all bony prominence and open wounds. PLEASE TRACK TO TOP OF FOOT. - Pad and protect skin from tubing at all times using ABD pads between patient's skin and VAC tubing - Change dressing 3 x weekly and as needed to keep clean and dry 4 olegario wrap to foot and ankle with 6 to lower leg from behind the toes to 1 below the knee Right Achilles/heel alternate dressing (should wound vac fail): - Apply vashe moistened gauze soak for 5 to 10 minutes. Remove and pat dry with gauze. - Apply promogran (Collagen) to the wound base. - Place ABD pad over achilles and Heel cup ABD on heel. - Wrap with Kerlix and secure with tape. - Change dressing every other day and as needed to maintain a clean dry dressing. 4 olegario wrap to foot and ankle with 6 to lower leg from behind the toes to 1 below the knee Left Achilles: Complete Graft removed 01/12/[address] Pickard - Apply vashe moistened gauze soak for 5 to 10 minutes. Remove and pat dry with gauze. - Apply promogran (Collagen) to the wound base - Place ABD pad over achilles and Heel cup ABD on heel. - Wrap with Kerlix and secure with tape. - Change dressing every other day and as needed to maintain a clean dry dressing. 4 olegario wrap to foot and ankle with 6 to lower leg from behind the toes to 1 below the knee Type II diabetes mellitus with neurological manifestations 250.60 E11.49 Diagnosis Notes Drag & Drop to change diagnosis order PVD (peripheral vascular disease) 443.9 I73.9 Diagnosis Notes Drag & Drop to change diagnosis order Amputated toe of right foot 895.0 S98.131A Diagnosis Notes Drag & Drop to change diagnosis order Personal history of diabetic foot ulcer V12.29 Z86.31 Diagnosis Notes Drag & Drop to change diagnosis order Callus 700 L84 Diagnosis Notes Drag & Drop to change diagnosis order Onychomycosis 110.1 B35.1 Diagnosis Notes Drag & Drop to change diagnosis order Venous ulcer of left lower extremity without varicose veins 459.81 I87.2 Diagnosis Notes Drag & Drop to change diagnosis order Ulcer of left lower extremity, limited to breakdown of skin 707.10 L97.921 Diagnosis Notes Drag & Drop to change diagnosis order Venous ulcer of right lower extremity without varicose veins 459.81 I87.2 Diagnosis Notes Drag & Drop to change diagnosis order Ulcer of right lower extremity, limited to breakdown of skin 707.10 L97.911 Diagnosis Notes Drag & Drop to change diagnosis order 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 707.13 L97.323 Diagnosis Notes Drag & Drop to change diagnosis order Diabetic foot ulcer 250.80 E11.621 Diagnosis Notes Drag & Drop to change diagnosis order Diabetic leg ulcer 250.80 E11.622 Diagnosis Notes Drag & Drop to change diagnosis order Achilles rupture, left 845.09 S86.012A Diagnosis Notes Drag & Drop to change diagnosis order 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 707.13 L97.312 Diagnosis Notes Drag & Drop to change diagnosis order Achilles rupture, right 845.09 S86.011A Diagnosis Notes Drag & Drop to change diagnosis order Ulcer of left foot with fat layer exposed 707.15 L97.522 Diagnosis Notes Drag & Drop to change diagnosis order 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 707.13 L97.314 Diagnosis Notes Drag & Drop to change diagnosis order Foot osteomyelitis, right 730.27 M86.9 Diagnosis Notes Drag & Drop to change diagnosis order Ulcer of left foot, limited to breakdown of skin 707.15 L97.521 Diagnosis Notes Drag & Drop to change diagnosis order Diabetic ulcer of left ankle, limited to breakdown of skin 250.80 E11.622 Diagnosis Notes Drag & Drop to change diagnosis order Diabetic ulcer of right ankle with fat layer exposed 250.80 E11.622 Nursing Documentation Pertinent Medical History: DM2, HTN, venous insufficiency, & heart failure Wound Etiology according to patient: wounds started February 2024 Pt had right great toe amputation June 18, 2023 Patient arrived via: Ambulatory with [facility] AQS/Nursing Facility: [facility] Consent captured for debridement per Hu Pickard DPM and good until April 2025 Anticoagulant Therapy: ASA 81mg ACTIVE CARE PER PROVIDER: Hu Pickard DPM Application Dates: Grafts are complete 01/07/2023 Apligraf 01/15/2023 Apligraf 01/21/2023 Apligraf 01/27/2023 Apligraf 02/04/2023 Apligraf Graft placed in the OR 12/15/24 with Hu Pickard DPM to Left and Right Achilles removed by Dr. Marti 01/04/25 Wounds 1-38 previously closed 40, 41 closed 43-56 closed ___ WOUND ASSESSMENT: Refer to Provider's Wound Assessment Note VASCULAR ASSESSMENT BY PROVIDER: See provider wound assessment note CHF History: Yes as of February 2022, Dr. Sadler in Cardiology EDEMA: Right Foot: 2+ Right ankle: 2+ Right Calf: 4+ Left Foot: 2+ Left ankle: 2+ Left Calf: 4+ MEASUREMENTS: in CM Right Calf: 37.0 Right Ankle: 23.6 Left Calf: 35.0 Left Ankle: 22.5 Length: 43.0 not measured at visit WOUND PHOTOGRAPHY: YES (date taken 01/12/25) DEBRIDEMENT PROCEDURE BY PROVIDER: Anesthetic Used: lido gel 2% applied per Mira Dubose RN Other procedure: N/A Specimen collected: N/A WOUND TREATMENT PER MD ORDER: Wounds cleansed by mechanical debridement to allow provider to visualize wound base\ *Silicone Allergy LEFT LOWER LEG WOUNDS WOUND # 42 - LOCATION: Left Achilles (NEW 07/26/24) (not measured today 12/28/24) L: 8.9 cm x W: 2.4 cm x D: 0.6 cm - tendon exposed Graft in place 01/04/25 - removed by Dr. Pickard 01/04/25 Cleansed with: vashe Applied to naya-wound skin: vaseline Applied to wound bed: promogran, drawtex Covered and secured with: abd, kerlix, tape 4 olegario wrap to foot and ankle with 6 to lower leg from behind the toes to 1 below the knee - - - - - - - - - - - - - - - - - - - - - - - - - - - - - - - - - - - - - - - - - - - - - - - - - - - - - - - - - - - - - - - - - - - - - - RIGHT LOWER LEG WOUNDS WOUND # 39 LOCATION: Right Achilles L: 9.7 cm x W: 4.2 cm x D: 0.8 cm - Small amount of Tendon exposed Graft intact 01/04/25, removed by Dr. Pickard 01/04/25 Tunnel: in cm 0600: 1.1 Cleansed with: Vashe Applied to naya-wound skin: skin prep, thin Duoderm, saul seal, clear vac drape ,vaseline Applied to wound bed: promogran to the wound bed and the distal wound (Tunnel area) filling with promogran, black foam to wound bed and a bolster over the tunneled area. Bridge to the Top of foot. Covered and secured with: Vac drape. ABD, kerlix to pad and protect under tubing 4 olegario wrap to foot and ankle with 6 to lower leg from behind the toes to 1 below the knee - - - - - - - - - - - - - - - - - - - - - - - - - - - - - - - - - - - - - - - - - - - - - - - - - - - - - - - - - - - - - - - - - - - - - - - COMPRESSION: NO COMPRESSION. Gentle olegario wraps only to secure dressings SPECIAL NEEDS: Coordination of care - AVS faxed to [facility] - Sheela Renae to Bessy ramirez at the [facility] to request updated medication list. Nurse to fax over today. Emotional support N/A OR set-up N/A Yarn Examiner N/A Incontinence needs N/A DME company: ordered 03/01/24 [place] wraps, Supplies ordered 06/07/2024 x 30 days with 2 refills, PICC line with IV antibiotics ordered today 12/19/24 DISCHARGED in stable condition to: back to [facility] with transport PLAN/ORDERS: Follow-up in the Wound Center with Dr Pickard January 19 @ 10am Dr. Barnes in 6 weeks on 01/30/2025 at 1:00PM Continue HBOT until notified to stop. Continue aggressive nutritional support to assist wound healing, focusing on increasing protein intake, keeping blood sugars stable/controlled Blood sugars must be kept below 150 for wound healing Patient is a High Fall Risk due - UP WITH ASSIST ONLY HAVE PATIENT ATTEMPT CHAIR YOGA EXERCISES - LIMITED ANKLE MOVEMENT WEIGHT BEARING TOLERATED Please give patient premiere diabetic protein shakes 2 x daily between meals. Please send an updated medical list with patient for each visit. OTHER EDUCATION: Education performed regarding lymphedema/edema: n/a Elevation of extremity above the heart for 30 minutes three times daily and as needed Exercise such as writing the ABC's with your toes in the air, walking and/or calf pumps Wearing compression as ordered by provider Diet controlling of sodium as instructed by provider Use of medication to help control edema. UNIVERSAL PROTOCOL / SAFETY CHECKLIST Procedure to be Performed: Serial Sharp Wound Debridement. Lower extremities Sign In: 1045 A Moment of CARE was completed. Appropriate PPE (Personal Protective Equipment) worn by all providers involved with the procedure. Special equipment utilized Curette. Patient/Surrogate Stated/Verified: Patient name, Date of , Relevant allergies, and The intended procedure Time Out: 1050 Relevant labs, photos, and/or imaging studies have been reviewed. Intended patient and procedure match the source document(s) (e.g. consent, H&P, associated studies [imaging, pathology]) match the intended patient and procedure. Consent obtained and matches the intended procedure. Yes. Correct side/site is not applicable. Medications required for this procedure are verified. Fire risk assessed and is not applicable. Implants: are not applicable. Sign Out: 1105 Specimens not collected. All instruments, equipment, possible retained foreign bodies are accounted for. Yes. The post-procedure plan of care has been communicated to the patient or surrogate. Current HBOT - Stephenie in to evaluate documented in this encounter [facility] 01-12-2025 Instructions Bonnie Molina RN - 01/12/2025 10:42 AM EDT WOUND CARE INSTRUCTIONS- Shade Brambila Wound location: Bilateral Lower Legs [facility] HOME: FAX: [phone] All changes to wound vac settings and wound care must be cleared through Dr. Pickard prior to any changes being made. Stop White Foam as of 01/12/25 The pressure must remain at 175 due to the amount of tracking that must be done for the wounds Right Achilles: (WOUND VAC) [facility] Recommended Settings: 175 mmHg, continuous Intensity High Continuous suction Wound Vac: - Apply Skin prep to naya-wound skin - Apply thin Duoderm to naya-wound skin surrounding wound. - Apply Saul seal to surrounding wound. - Apply Clear vac drape to all skin where foam will be placed and for bridged areas: It is imperative to have all skin covered with clear drape where the black foam will be placed. - Apply saline moistened promogran to wound base plus the tunneled area - Black foam to wound bed Apply a black foam bolster of the distal end of wound where tunnel was located - Track pad to be placed avoiding all bony prominence and open wounds. PLEASE TRACK TO TOP OF FOOT. - Pad and protect skin from tubing at all times using ABD pads between patient's skin and VAC tubing - Change dressing 3 x weekly and as needed to keep clean and dry 4 olegario wrap to foot and ankle with 6 to lower leg from behind the toes to 1 below the knee Right Achilles/heel alternate dressing (should wound vac fail): - Apply vashe moistened gauze soak for 5 to 10 minutes. Remove and pat dry with gauze. - Apply promogran (Collagen) to the wound base. - Place ABD pad over achilles and Heel cup ABD on heel. - Wrap with Kerlix and secure with tape. - Change dressing every other day and as needed to maintain a clean dry dressing. 4 olegario wrap to foot and ankle with 6 to lower leg from behind the toes to 1 below the knee Left Achilles: Complete Graft removed 01/12/[address] Neeraj - Apply vashe moistened gauze soak for 5 to 10 minutes. Remove and pat dry with gauze. - Apply promogran (Collagen) to the wound base - Place ABD pad over achilles and Heel cup ABD on heel. - Wrap with Kerlix and secure with tape. - Change dressing every other day and as needed to maintain a clean dry dressing. 4 olegario wrap to foot and ankle with 6 to lower leg from behind the toes to 1 below the knee - Avoid sitting with legs in a dependent position or standing for long periods of time. - Attempt to lay flat and elevate your legs above the level of your heart 2-3 times daily, for 30 minutes at a time. - Be sure to continue walking and/or calf pumps and exercises to mimic writing the alphabet with your foot, as instructed Foot care Many people with diabetes lose the feeling in their feet (neuropathy). Therefore, they might not know they have an injury that can lead to serious problems, such as foot removal (amputation). By taking care of your feet, most serious problems can be prevented. If you have problems checking your own feet, have a family member or friend help you. Easy steps to protect your feet: Check your feet every day for: dry or cracked skin, cuts, open sores, blisters, redness, swelling, corns, calluses, or toenail problems. Use a mirror if necessary. Report any problems to your doctor. Keep your feet clean and dry, especially between the toes. If your feet are dry or cracked use a moisturizing lotion at least daily but never between the toes. See your judicial clerk every three months for foot and nail care. Don't go barefoot. Wear shoes or slippers at all times. Wear comfortable shoes that fit well. Check inside your shoes for foreign objects or rough spots before putting on shoes. Always wear socks. Avoid using anything hot, such as heating pads, hot water bottles, hot tubs, or bath water. Check the temperature of bath water with your elbow not your foot. Take your shoes and socks off at every office visit to remind your doctor to check your feet. Also, never tape a dressing directly to the skin on your legs or feet. Instead, use a self-adherent bandage to avoid injuring the skin on your lower extremities If calluses form they can cause wound ulcers to appear under the callus, must be seen by [employer] every three months to prevent. Maintain controlled blood sugar, if blood sugar is consistently above 200 this can delay wound healing and aggravate neuropathy. To give your wound the best chance to heal: - Eat three balanced meals daily focusing on the protein - Control your blood sugar. Keep blood sugar less than 200 - Complete your wound care instructions as ordered - Vitamin C 500 mg twice daily - Multiple Vitamin Daily - Drink a protein shake daily - Premiere Clear or Glucerna for Diabetic patients, Nepro for renal patients and premiere for non-renal and non-diabetic patients PLEASE ATTEMPT TO FEED THE PATIENT A DIABETIC DIET Diabetic Premiere Protein Shakes 2 x daily between meals May ambulate with Assistance Physical Therapy to assess what level of aid the patient needs to ambulate with assistance Patient may bear weight Report any of the following signs and symptoms of infection to the Wound Center at [phone] or go to the Emergency Department: Fever or chills Increased drainage Green or yellow drainage Foul odor Increased pain Hardness around the wound Redness, warmth or swelling of the surrounding tissue Color change to the wound Evenings / Weekends / Holidays If you call the wound center at the phone number provided above, please leave a detailed message that includes your full name, birthday, and phone number. We are seeing patients during the day, so we will return your call within a 24-48 hr period in the order your call was received. There is not an on-call provider assigned to the wound center. If you have an emergency that needs to be addressed, please go to an Urgent Care or Emergency Room. Thank you for your cooperation and understanding. If you are feeling ill, please call to reschedule your appointment. If you believe your illness to be wound related, call and leave a message using the directions above describing your symptoms. If you cannot wait 24-48 hrs for a callback, please get evaluated in the nearest emergency department. DISCHARGED in stable condition to: back to [facility] with transport PLAN/ORDERS: Follow-up in the Wound Center with Dr Pickard January 19 @ 10am Dr. Barnes in 6 weeks on 01/30/2025 at 1:00PM Continue HBOT until notified to stop. Continue aggressive nutritional support to assist wound healing, focusing on increasing protein intake, keeping blood sugars stable/controlled Blood sugars must be kept below 150 for wound healing Patient is a High Fall Risk due - UP WITH ASSIST ONLY HAVE PATIENT ATTEMPT CHAIR YOGA EXERCISES - LIMITED ANKLE MOVEMENT WEIGHT BEARING TOLERATED Please give patient premiere diabetic protein shakes 2 x daily between meals. Please send an updated medical list with patient for each visit. Hu Neeraj KENNEY/mjrenetta/kb/fm documented in this encounter [facility] 01-12-2025 Note [facility] 01-10-2025 Telephone encounter Note Received a request for office notes from ADS Notes from: 10/25/2024 Faxed to: [phone] Transmission Successful. [facility] 01-10-2025 Miscellaneous Notes Received a request for office notes from ADS Notes from: 10/25/2024 Faxed to: [phone] Transmission Successful. documented in this encounter [facility] 01-09-2025 Telephone encounter Note This morning's vanc trough came back wnl at 16.9 The results were attached to the M drive [facility] 01-08-2025 Telephone encounter Note The nurse infused the vanc this morning and then the labs were drawn. Therefore, the vanc level of 34.1 is a PEAK. Deb will have a trough drawn tomorrow morning. The EOS are elevated at 9.5%. Will monitor for abn s/s. The results were attached to the M drive. [facility] 01-05-2025 Note [facility] 01-05-2025 History of Presen t illness Narrative Date of Visit: 01/04/2025 Problem list reviewed. CHIEF COMPLAINT: SP RIGHT ankle I&D and calcaneal bone biopsy and LEFT wound debridement and graft application 12/15/24 check B/L lower leg wounds and check RIGHT lower leg wounds DM II A1c 7.4 (10/25/24) DLS 02/08/24 ADM 08/17/24 HISTORY OF PRESENT ILLNESS: Patient presents for BL leg wound check. She believes the right leg wound is doing better since surgery. She saw Dr Barnes and is on IV and oral abx. She has had no issues with graft or with wound vac. She is doing HBO. She states pain is a 3/10. She relates she can't feel feet well and gets numbness. Hx She was admitted 08/17/24 and was DC to [facility] where she is still at. She was DC on cipro and flagyl which she finished taking. She relates her insurance wouldn't cover it so she is self paying and planning on going to the nonskilled assistive living side soon. She is at [facility]. Patient is taking protein drinks. Referred by aircraft hydraulic equipment mechanic, Dr. Dasilva. Patient is DM and sees aircraft hydraulic equipment mechanic Denies N/V/F/C/D/SOB/CP/LP. PCN allergy Hx RT 3rd perc flexor tenotomy (07/26/23) HX R great toe amputation 06/18/23, excision tibial and fibular sesamoid, bone biopsy first met head. Right 2nd toe amputation and hallux I&D 10/28/22. Hx s/p RT toe amp 3,4,5 (DOS 10/14/23) DME DM inserts 08/24/23 rx circade wraps 08/14/22 CURRENT MEDICATIONS: oxyCODONE HCl Oral Tablet 5 MG (07/05/2024) Take 1 tablet every 12 hours as needed for 7 day(s) Percocet Oral Tablet 5-325 MG (07/20/2024) Take 1 tablet every 12 hours as needed for 7 day(s) oxyCODONE-Acetaminophen Oral Tablet 5-325 MG (10/28/2022) Ketorolac Tromethamine Ophthalmic Solution 0.5 % (04/26/2023) Accu-Chek Jose Plus In Vitro Strip (09/23/2022) Atorvastatin Calcium Oral Tablet 80 MG (06/13/2023) miSOPROStol Oral Tablet 200 MCG (06/15/2023) TAKE 2 TABLETS BY MOUTH THE DAY PRIOR TO PROCEDURE AT BEDTIME WITH FOOD Fluticasone Propionate Nasal Suspension 50 MCG/ACT (12/15/2022) USE 2 SPRAYS IN EACH NOSTRIL DAILY X1 WEEK,THEN 1 SPRAY IN EACH NOSTRIL DAILY THEREAFTER NEEDED Nitrofurantoin Monohyd Macro Oral Capsule 100 MG (02/08/2023) Fluconazole Oral Tablet 200 MG (03/20/2024) TAKE 1 TABLET EVERY DAY FOR 21 DAYS Bactrim DS Oral Tablet 800-160 MG (06/24/2023) Take 1 tablet twice a day for 10 day(s) Ofloxacin Ophthalmic Solution 0.3 % (03/30/2023) diazePAM Oral Tablet 10 MG (02/19/2022) TAKE 1 TABLET 60 MIN BEFORE TEST Atorvastatin Calcium Oral Tablet 40 MG (11/18/2022) FLUoxetine HCl Oral Capsule 40 MG (01/26/2022) Enalapril Maleate Oral Tablet 10 MG (01/26/2022) TAKE 1 TABLET BY MOUTH EVERY DAY Erythromycin Ophthalmic Ointment 5 MG/GM (02/09/2022) APPLY 1 A SMALL AMOUNT LEFT EYE 4 TIMES A DAY Atorvastatin Calcium Oral Tablet 20 MG (01/26/2022) TAKE 1 TABLET BY MOUTH EVERY DAY Spironolactone Oral Tablet 25 MG (06/15/2023) TAKE 0.5 TABLETS BY MOUTH ONCE DAILY. Jardiance Oral Tablet 25 MG (06/14/2023) TAKE 1 TABLET BY MOUTH EVERY DAY WITH BREAKFAST Furosemide Oral Tablet 40 MG (11/18/2022) HumuLIN R U-500 KwikPen Subcutaneous Solution Pen-injector 500 UNIT/ML (06/14/2023) INJECT 40 UNITS SUBCUTANEOUSLY AT BREAKFAST, 100 UNITS AT LUNCH, 80 UNITS AT SUPPER. metFORMIN HCl Oral Tablet 1000 MG (11/23/2022) TAKE 1 TABLET BY MOUTH TWICE DAILY WITH MEALS. E11.3599 ALLERGIES: Amoxicillin Unknown Band-Aid [place] Surg Dressing Other Bandaging Tape Other PAST MEDICAL HISTORY: Podiatry History remarkable for Foot Numbness, Fungal Nails, Leg or Foot Ulcers. The patient has a past medical history of Arthritis, Depression, DM-Medication Dependent, Poor Circulation. Neuropathy High Cholesterol SURGICAL HISTORY: Hand Tonsils HOSPITALIZATIONS: None Noted SOCIAL HISTORY: Smoking Status: Never smoker; Last Reviewed: 12/08/2023 Alcohol use: social drinker No drug use Social History Reviewed (01/16/2021 11:20:18 AM EST) FAMILY HISTORY: There is a family history of Denial of any knowledge of significant family history. Denial of any knowledge of significant family history Family History Reviewed (01/16/2021 11:20:19 AM EST) REVIEW OF SYSTEMS: Psychologic: Admits to No psych symptoms. Review of systems otherwise negative PHYSICAL EXAMINATION: Vital Signs: Weight 235 lbs; Height 5 ft 8 in; BMI 35.7 01/02/2025 9:22 AM (EST) Temperature 98.6 F; Pulse Rate 100 bpm; Blood Pressure 120 / 80 mm/Hg Vascular Exam: DP pulses of the RIGHT and LEFT foot are +1/4 PT pulses of the RIGHT and LEFT foot are +1/4 CFT is within normal limits, less than 3s to all digits, both feet. Skin temperature from proximal to distal is warm to warm, both feet. BL LE edema Dermatologic Exam: LEFT medial ankle wound healed, LEFT lateral lower leg wound healed. LEFT dorsal lateral foot wound healed. LEFT anterior lower leg wound healed. RIGHT anterior lateral lower leg cluster wound healed. LEFT posterior Achilles lower leg wound predebridement measures 9.8x2.5x0.1cm and post debridement measures 9.9x2.7x0.2cm with 85:15 granular fibrotic base, surrounding slough, no surrounding edema and erythema, no purulence expressed, no probe to bone, no malodor, moderate serosanginous drainage. Into level of FAT/TENDON. RIGHT posterior Achilles lower leg cluster wound predebridement measures 10.43.8x0.8cm and post debridement measures 10.5x4.0x1.0cm with tunnelling at 6 o'clock for 2.5cm, 60:40 granular fibrotic base, surrounding slough, no surrounding edema and no erythema, no purulence expressed, YES probe to bone-Exposed achilles tendon posteriorly with fraying and complete RUPTURE and tracking to calcaneus, no malodor, moderate serosanginous drainage. Into level of BONE. LEFT foot 2nd toe tuft hyperkeratotic tissue Nails 2-5 left are thickened, elongated and discolored with subungual debris. The nails are greater than .3mm in thickness. The discoloration is yellowish in color. Innerspaces 1-4 LT are clean dry and intact. Skin texture and turgor are decreased. absent or decreased hair growth bilateral. chronic lower leg red hyperpigmentation Neurologic Exam: Comments/Other Findings: Vibratory sensations decreased LT, Protective sensations absent LT tested with 5.07 monofilament, and light, sharp, and temperature sensations intact LT. Normal Babinski test noted bl foot after testing Orthopedic Exam: Additional Orthopedic Findings: RIGHT foot toe amputations 1,2,3,4,5 LEFT 2nd hammertoe contracture semi- rigid BL foot with absent plantar flexion 0/5 muscle strength with palpable rupture to achilles tendon DIAGNOSIS: Type II diabetes mellitus with neurological manifestations PVD (peripheral vascular disease) Amputated toe of right foot Personal history of diabetic foot ulcer Callus Onychomycosis Venous ulcer of left lower extremity without varicose veins Ulcer of left lower extremity, limited to breakdown of skin Venous ulcer of right lower extremity without varicose veins Ulcer of right lower extremity, limited to breakdown of skin 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 Diabetic foot ulcer Diabetic leg ulcer Achilles rupture, left 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 Achilles rupture, right Ulcer of left foot with fat layer exposed 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 Foot osteomyelitis, right Ulcer of left foot, limited to breakdown of skin PLAN AND TREATMENT: ASSESMENT & PLAN BL Foot and Ankle and Lower extremity Exam and Evaluation carried out with a treatment plan reviewed with the patient and findings discussed with patient including alternatives, benefits, complications and risks TESTS / IMAGING / X-RAY EXAM PREVIOUS right foot XR: There was noted to be normal joint spaces unless noted. No fractures or dislocations noted. No soft tissue emphysema noted. No osteopenia or sclerosis noted. tibial and fibular sesamoid excised, there is small calcified piece of fibular sesamoid bone noted to plantar lateral 1st met. RT foot amp at MTPJ 1,2,3,4,5. no lytic lesions. no soft tissue gas noted. 08/17/24 Xray left foot: No radiographic presence of OM 08/17/24 Xray tib/fib left leg: No radiographic presence of OM 08/17/24 Xray tib/fib right leg: No radiographic presence of OM 08/17/24 CRP: 13.6 and 08/18/24 ESR: 97 04/05/24 PVR b/l leg: Left MANJEET 0.9 and Right 0.95 08/18/24 Left leg wound culture: Few pseudomonas aeruginosa FINAL 08/18/24 MRI BL LE: 1. No drainable soft tissue abscess or evidence for osteomyelitis 2. Diffuse edema/cellulitis and fatty muscle atrophy with nonspecific myositis. 10/01/24 albumin: 3.3 11/27/24 right achilles wound Cx: MSSA, Streptococcus agalactiae (group b streptococcus) Abnormal, Proteus mirabilis Abnormal 12/15/24 right foot XR: Interval amputation of the 3rd, 4th and 5th toes. Previous 1st and 2nd toe amputations. Stable chronic deformities of the distal 2nd and 5th metatarsals. No acute fracture. Midfoot osteoarthrosis and postoperative soft tissue swelling. Soft tissue suction device adjacent to the distal tibia and posterior skin clint. 12/15/24 right achilles wound Cx: MRSA and Proteus mirabilis and Mixed anaerobic judy 12/15/24 right calcaneus bone Cx: Enterococcus faecalis Abnormal and Proteus mirabilis and Mixed anaerobic judy PATH: Cancellous bone with reactive changes, negative for osteomyelitis LEFT posterior achilles lower leg ulcer has improved, less depth. RIGHT posterior achilles lower leg ulcer stable. LEFT dorsal lateral foot ulcer healed. LEFT lateral lower leg ulcer healed. RIGHT anterior lower leg cluster ulcer healed. LEFT anterior lower leg wound healed. LEFT medial ankle ulcer healed. LEFT posterior achilles lower leg ulcer treated with sharp excisional debridement carried out of the wound with non selective sharp excisional debridement past the dermis into FASCIA and FAT level with use of curette and 15 scalpel blade. Devitalized tissue removed and we then flushed out the wound with wound wash sterile saline. Area numbed with lidocaine gel if sensate prior. RIGHT posterior Achilles lower leg ulcer treated with sharp excisional debridement carried out of the wound with non selective sharp excisional debridement past the dermis into BONE level with use of curette, bone rongeur and 15 scalpel blade. Devitalized tissue removed and we then flushed out the wound with wound wash sterile saline. Area numbed with lidocaine gel if sensate prior. Discussed importance in offloading, proper nutrition including blood sugar control and getting enough protein and vitamins, infection prevention, and proper wound care in wound healing. Also discussed detrimental impact of smoking on healing. Reviewed proper wound care with patient. To not soak wound but to clean appropriately. To watch for signs of infection both local and systemic. These were reviewed with the patient. If seen to contact office or go to ED. To continue wound care consisting of washing the wound with soap and water or vashe solution soaked gauze for 3-5 minutes. Then to apply dressing consisting of noted below Patient has findings concerning for osteomyelitis. Discussed conservative and surgical options. Discussed IV antibiotics and wound care vs amputation with patient. Offered referral to infectious disease. Discussed all risks and benefits of all options. All questions were answered. Patient elects to proceed with CONSERTATIVE treatment plan. follow up with ID, Dr Barnes as scheduled. To start IV abx per ID for 6 weeks vancomycin and ceftriaxone and Flagyl. RIGHT side wound vac only. Discussed need to fill in the deficit from BL achilles rupture as well as to get coverage over achilles. Discussed wound vac is best option. Discussed would need to fill in wounds a bit more with wound vac before considering grafting. Discussed as bridging away from wound site Discussed need to try and prevent more wounds form the drape Discussed with both achilles ruptured she will struggle with push off in gait. Discussed achilles likely ruptured due to chronic ulceration with infections and drying out of tendon. Discussed if we can get her healed she will need AFO to aid in walking. Discussed she is at high risk for BKA BL, right moreso than left. Discussed she can weight bear as tolerated. Discussed need assist for activities as she is a high fall risk. Discussed limiting motion at ankle joint to stop tugging on wounds to aid in healing. Discussed need to balance this with maintaining muscle. Discussed need for better nutrition Patient educated on the importance of proper nutrition to help optimize healing. Discussed eating three balanced meals daily and meal preparation. Discussed importance of high protein intake. Discussed supplementation drinks such as ensure, glucerna, nepro, tamiko. Discussed need for blood sugar control, proper vitamin intake whether dietary or through supplementation. Discussed Vitamin C, Multi Vitamin, zinc, and magnesium supplementation. Discussed may need to watch sodium intake as well especially if patient experiences swelling. Offered nutrition referral. Patient taking protein supplement drink BID between meals Follow up 1-2 week for wound check. All changes to wound vac settings and wound care must be cleared through Dr. Pickard prior to any changes being made. The pressure must remain at 175 due to the amount of tracking that must be done for the wounds Clear vac drape to all skin where foam will be placed. It is imperative to have all skin covered with clear drape where the black foam will be placed as there are new wounds where the black foam was placed directly on the patient's skin Right Achilles: (WOUND VAC) [facility] Recommended Settings: 175 mmHg, continuous Intensity High Continuous suction Wound Vac: - Apply Skin prep to naya-wound skin - Apply thin Duoderm to naya-wound skin surrounding wound. - Apply Saul seal to surrounding wound. - Apply Clear vac drape to all skin where foam will be placed and for bridged areas: It is imperative to have all skin covered with clear drape where the black foam will be placed. - Apply saline moistened promogran to wound base (lightly moisten with saline) - Apply White foam tucked into tunneled areas. - Black foam to wound bed and over the graft site - be sure to not over pack wounds with foam - Track pad to be placed avoiding all bony prominence and open wounds. PLEASE TRACK TO TOP OF FOOT. - Pad and protect skin from tubing at all times using ABD pads between patient's skin and VAC tubing - Change dressing 3 x weekly and as needed to keep clean and dry - Apply a loose olegario wrap to secure dressings (OLEGARIO WRAPS ARE NOT FOR COMPRESSION - THEY ARE ONLY TO HELP KEEP DRESSINGS IN PLACE) Right Achilles/heel alternate dressing (should wound vac fail): - Apply vashe moistened gauze soak for 5 to 10 minutes. Remove and pat dry with gauze. - Apply promogran (Collagen) to the wound base, lightly moisten with saline. - Place ABD pad over achilles and Heel cup ABD on heel. - Wrap with Kerlix and secure with tape. - Change dressing every other day and as needed to maintain a clean dry dressing. - Secure with olegario wrap from behind the toes to 1 below the knee (OLEGARIO WRAPS ARE NOT FOR COMPRESSION - THEY ARE ONLY TO HELP KEEP DRESSINGS IN PLACE) Left Achilles: Graft removed 01/04/[address] Pickard - Apply vashe moistened gauze soak for 5 to 10 minutes. Remove and pat dry with gauze. - Apply promogran (Collagen) to the wound base, lightly moisten with saline. - Place ABD pad over achilles and Heel cup ABD on heel. - Wrap with Kerlix and secure with tape. - Change dressing every other day and as needed to maintain a clean dry dressing. - Secure with olegario wrap from behind the toes to 1 below the knee (OLEGARIO WRAPS ARE NOT FOR COMPRESSION - THEY ARE ONLY TO HELP KEEP DRESSINGS IN PLACE) Type II diabetes mellitus with neurological manifestations 250.60 E11.49 Diagnosis Notes Drag & Drop to change diagnosis order PVD (peripheral vascular disease) 443.9 I73.9 Diagnosis Notes Drag & Drop to change diagnosis order Amputated toe of right foot 895.0 S98.131A Diagnosis Notes Drag & Drop to change diagnosis order Personal history of diabetic foot ulcer V12.29 Z86.31 Diagnosis Notes Drag & Drop to change diagnosis order Callus 700 L84 Diagnosis Notes Drag & Drop to change diagnosis order Onychomycosis 110.1 B35.1 Diagnosis Notes Drag & Drop to change diagnosis order Venous ulcer of left lower extremity without varicose veins 459.81 I87.2 Diagnosis Notes Drag & Drop to change diagnosis order Ulcer of left lower extremity, limited to breakdown of skin 707.10 L97.921 Diagnosis Notes Drag & Drop to change diagnosis order Venous ulcer of right lower extremity without varicose veins 459.81 I87.2 Diagnosis Notes Drag & Drop to change diagnosis order Ulcer of right lower extremity, limited to breakdown of skin 707.10 L97.911 Diagnosis Notes Drag & Drop to change diagnosis order 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 707.13 L97.323 Diagnosis Notes Drag & Drop to change diagnosis order Diabetic foot ulcer 250.80 E11.621 Diagnosis Notes Drag & Drop to change diagnosis order Diabetic leg ulcer 250.80 E11.622 Diagnosis Notes Drag & Drop to change diagnosis order Achilles rupture, left 845.09 S86.012A Diagnosis Notes Drag & Drop to change diagnosis order 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 707.13 L97.312 Diagnosis Notes Drag & Drop to change diagnosis order Achilles rupture, right 845.09 S86.011A Diagnosis Notes Drag & Drop to change diagnosis order Ulcer of left foot with fat layer exposed 707.15 L97.522 Diagnosis Notes Drag & Drop to change diagnosis order 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 707.13 L97.314 Diagnosis Notes Drag & Drop to change diagnosis order Foot osteomyelitis, right 730.27 M86.9 Diagnosis Notes Drag & Drop to change diagnosis order Ulcer of left foot, limited to breakdown of skin 707.15 L97.521 Nursing Documentation Pertinent Medical History: DM2, HTN, venous insufficiency, & heart failure Wound Etiology according to patient: wounds started February 2024 Pt had right great toe amputation June 18, 2023 Patient arrived via: Ambulatory with cane Home Care Company/Nursing Facility: [facility] Consent captured for debridement per Hu Pickard DPM and good until April 2025 Anticoagulant Therapy: ASA 81mg ACTIVE CARE PER PROVIDER: Hu Pickard DPM Application Dates: Grafts are complete 01/07/2023 Apligraf 01/15/2023 Apligraf 01/21/2023 Apligraf 01/27/2023 Apligraf 02/04/2023 Apligraf Wounds 1-38 previously closed 40 closed 44-45 closed 47-48 Closed 50 Closed 51 closed WOUND # 49 LOCATION: Left anterior lower leg - (new 11/10/24) 11/17/24 closed, but fragile Closed 12/08/2024 WOUND #52 LOCATION: Right anterior lower leg (NEW 11/17/24) closed 11/24/24, 12/01/24 re-opened Closed 12/08/24 WOUND #53 LOCATION: Right lateral lower leg (NEW 11/17/24) closed 11/24/24, 12/01/24 re-opened Closed 12/08/24 ___ WOUND ASSESSMENT: Refer to Provider's Wound Assessment Note VASCULAR ASSESSMENT BY PROVIDER: See provider wound assessment note CHF History: Yes as of February 2022, Dr. Sadler in Cardiology EDEMA: Right Foot: 2+ Right ankle: 2+ Right Calf: 2+ Left Foot: 2+ Left ankle: 2+ Left Calf: 2+ MEASUREMENTS: in CM Right Calf: 34.0 Right Ankle: 23.0 Left Calf: 29.0 Left Ankle: 23.5 Length: 43.0 not measured at visit WOUND PHOTOGRAPHY: YES (date taken 01/04/25) DEBRIDEMENT PROCEDURE BY PROVIDER: Anesthetic Used: N/A Other procedure: N/A Specimen collected: N/A WOUND TREATMENT PER MD ORDER: Wounds cleansed by mechanical debridement to allow provider to visualize wound base\ *Silicone Allergy LEFT LOWER LEG WOUNDS Graft placed in the OR 12/15/24 with Hu Pickard DPM to Left and Right Achilles removed by Dr. Marti 01/04/25 WOUND # 41 - LOCATION: Left Medial Ankle (NEW 07/26/24 (not measured today 12/21/24) L: cm x W: cm x D: cm Graft in place 01/04/25, removed by Dr. Pickard 01/04/25 WOUND # 43 - LOCATION: Left Dorsal / Lateral Foot -(NEW 07/26/24 Healed 12/28/24, remains closed 01/04/25 WOUND # 46 LOCATION: Left Lateral Lower Leg (NEW 10/12/24)) Closed 12/28/24, remains closed 01/04/25 WOUND # 42 - LOCATION: Left Achilles (NEW 07/26/24) (not measured today 12/28/24) L: 9.9 cm x W: 2.7 cm x D: 0.3 cm - tendon exposed Graft in place 01/04/25 - removed by Dr. Pickard 01/04/25 Cleansed with: vashe Applied to naya-wound skin: vaseline Applied to wound bed: promogran, drawtex Covered and secured with: abd, kerlix, tape Secure with olegario wrap from behind the toes to 1 below the knee Lose to only secure the dressings WOUND # 55 LOCATION: Left Medial Anterior Lower Leg - Healed 01/04/25 WOUND # 56 LOCATION: Left Medial Ankle - Healed 01/04/25 - - - - - - - - - - - - - - - - - - - - - - - - - - - - - - - - - - - - - - - - - - - - - - - - - - - - - - - - - - - - - - - - - - - - - - - RIGHT LOWER LEG WOUNDS WOUND # 39 LOCATION: Right Achilles Cluster L: 10.5cm x W: 4.0 cm x D: 1.0 cm - Tendon exposed Graft intact 01/04/25, removed by Dr. Pickard 01/04/25 Tunnel: in cm 0600: 2.5 Cleansed with: Vashe Applied to naya-wound skin: skin prep, thin Duoderm, saul seal, clear vac drape ,vaseline Applied to wound bed: promogran, White foam to the tunneled area, black foam to wound, Bridge to the Top of foot. Covered and secured with: Vac drape. ABD, kerlix to pad and protect under tubing Secure with: olegario wrap from behind the toes to 1 below the knee Lose to only secure the dressings WOUND # _54_ LOCATION: Right anterior lower leg cluster-NEW 12/28/24 - closed 01/04/25 - - - - - - - - - - - - - - - - - - - - - - - - - - - - - - - - - - - - - - - - - - - - - - - - - - - - - - - - - - - - - - - - - - - - - - - COMPRESSION: NO COMPRESSION. Gentle olegario wraps only to secure dressings SPECIAL NEEDS: Coordination of care - AVS faxed to [facility] - Sheela Renae to Bessy ramirez at the [facility] to request updated medication list. Nurse to fax over today. Emotional support N/A OR set-up N/A Yarn Examiner N/A Incontinence needs N/A DME company: ordered 03/01/24 [place] wraps, Supplies ordered 06/07/2024 x 30 days with 2 refills, PICC line with IV antibiotics ordered today 12/19/24 DISCHARGED in stable condition to: back to [facility] with transport PLAN/ORDERS: Follow-up in the Wound Center with Dr Pickard January 12, 2025 at 10:00am Dr. Barnes in 6 weeks on 01/30/2025 at 1:00PM Continue HBOT until notified to stop. Continue aggressive nutritional support to assist wound healing, focusing on increasing protein intake, keeping blood sugars stable/controlled Blood sugars must be kept below 150 for wound healing Patient is a High Fall Risk due - UP WITH ASSIST ONLY HAVE PATIENT ATTEMPT CHAIR YOGA EXERCISES - LIMITED ANKLE MOVEMENT WEIGHT BEARING TOLERATED Please give patient premiere diabetic protein shakes 2 x daily between meals. Please send an updated medical list with patient for each visit. OTHER EDUCATION: Education performed regarding lymphedema/edema: n/a Elevation of extremity above the heart for 30 minutes three times daily and as needed Exercise such as writing the ABC's with your toes in the air, walking and/or calf pumps Wearing compression as ordered by provider Diet controlling of sodium as instructed by provider Use of medication to help control edema. UNIVERSAL PROTOCOL / SAFETY CHECKLIST Procedure to be Performed: Serial Sharp Wound Debridement. Sign In: 1025 A Moment of CARE was completed. Appropriate PPE (Personal Protective Equipment) worn by all providers involved with the procedure. Special equipment utilized Curette. Patient/Surrogate Stated/Verified: 1025Patient name, Date of , Relevant allergies, and The intended procedure Time Out: 1026 Relevant labs, photos, and/or imaging studies have been reviewed. Intended patient and procedure match the source document(s) (e.g. consent, H&P, associated studies [imaging, pathology]) match the intended patient and procedure. Consent obtained and matches the intended procedure. Yes. Correct side/site is not applicable. Medications required for this procedure are verified. Fire risk assessed and is not applicable. Implants: are not applicable. Sign Out: 1045 Specimens not collected. All instruments, equipment, possible retained foreign bodies are accounted for. Yes. The post-procedure plan of care has been communicated to the patient or surrogate. Amena Leonard RN/ melonie Current HBOT - Dr. Benitez in to evaluate documented in this encounter [facility] 01-04-2025 Instructions Amena Leonard RN - 01/04/2025 10:06 AM EDT WOUND CARE INSTRUCTIONS- Shade Brambila Wound location: Bilateral Lower Legs [facility] HOME: FAX: [phone] All changes to wound vac settings and wound care must be cleared through Dr. Pickard prior to any changes being made. The pressure must remain at 175 due to the amount of tracking that must be done for the wounds Clear vac drape to all skin where foam will be placed. It is imperative to have all skin covered with clear drape where the black foam will be placed as there are new wounds where the black foam was placed directly on the patient's skin Right Achilles: (WOUND VAC) [facility] Recommended Settings: 175 mmHg, continuous Intensity High Continuous suction Wound Vac: - Apply Skin prep to naya-wound skin - Apply thin Duoderm to naya-wound skin surrounding wound. - Apply Saul seal to surrounding wound. - Apply Clear vac drape to all skin where foam will be placed and for bridged areas: It is imperative to have all skin covered with clear drape where the black foam will be placed. - Apply saline moistened promogran to wound base (lightly moisten with saline) - Apply White foam tucked into tunneled areas. - Black foam to wound bed and over the graft site - be sure to not over pack wounds with foam - Track pad to be placed avoiding all bony prominence and open wounds. PLEASE TRACK TO TOP OF FOOT. - Pad and protect skin from tubing at all times using ABD pads between patient's skin and VAC tubing - Change dressing 3 x weekly and as needed to keep clean and dry - Apply a loose olegario wrap to secure dressings (OLEGARIO WRAPS ARE NOT FOR COMPRESSION - THEY ARE ONLY TO HELP KEEP DRESSINGS IN PLACE) Right Achilles/heel alternate dressing (should wound vac fail): - Apply vashe moistened gauze soak for 5 to 10 minutes. Remove and pat dry with gauze. - Apply promogran (Collagen) to the wound base, lightly moisten with saline. - Place ABD pad over achilles and Heel cup ABD on heel. - Wrap with Kerlix and secure with tape. - Change dressing every other day and as needed to maintain a clean dry dressing. - Secure with olegario wrap from behind the toes to 1 below the knee (OLEGARIO WRAPS ARE NOT FOR COMPRESSION - THEY ARE ONLY TO HELP KEEP DRESSINGS IN PLACE) Left Achilles: Graft removed 01/04/[address] Pickard - Apply vashe moistened gauze soak for 5 to 10 minutes. Remove and pat dry with gauze. - Apply promogran (Collagen) to the wound base, lightly moisten with saline. - Place ABD pad over achilles and Heel cup ABD on heel. - Wrap with Kerlix and secure with tape. - Change dressing every other day and as needed to maintain a clean dry dressing. - Secure with olegario wrap from behind the toes to 1 below the knee (OLEGARIO WRAPS ARE NOT FOR COMPRESSION - THEY ARE ONLY TO HELP KEEP DRESSINGS IN PLACE) NEW WOUNDS-RIGHT ANTERIOR LOWER LEG CLUSTER- closed 01/04/25 - Avoid sitting with legs in a dependent position or standing for long periods of time. - Attempt to lay flat and elevate your legs above the level of your heart 2-3 times daily, for 30 minutes at a time. - Be sure to continue walking and/or calf pumps and exercises to mimic writing the alphabet with your foot, as instructed Foot care Many people with diabetes lose the feeling in their feet (neuropathy). Therefore, they might not know they have an injury that can lead to serious problems, such as foot removal (amputation). By taking care of your feet, most serious problems can be prevented. If you have problems checking your own feet, have a family member or friend help you. Easy steps to protect your feet: Check your feet every day for: dry or cracked skin, cuts, open sores, blisters, redness, swelling, corns, calluses, or toenail problems. Use a mirror if necessary. Report any problems to your doctor. Keep your feet clean and dry, especially between the toes. If your feet are dry or cracked use a moisturizing lotion at least daily but never between the toes. See your judicial clerk every three months for foot and nail care. Don't go barefoot. Wear shoes or slippers at all times. Wear comfortable shoes that fit well. Check inside your shoes for foreign objects or rough spots before putting on shoes. Always wear socks. Avoid using anything hot, such as heating pads, hot water bottles, hot tubs, or bath water. Check the temperature of bath water with your elbow not your foot. Take your shoes and socks off at every office visit to remind your doctor to check your feet. Also, never tape a dressing directly to the skin on your legs or feet. Instead, use a self-adherent bandage to avoid injuring the skin on your lower extremities If calluses form they can cause wound ulcers to appear under the callus, must be seen by [employer] every three months to prevent. Maintain controlled blood sugar, if blood sugar is consistently above 200 this can delay wound healing and aggravate neuropathy. To give your wound the best chance to heal: - Eat three balanced meals daily focusing on the protein - Control your blood sugar. Keep blood sugar less than 200 - Complete your wound care instructions as ordered - Vitamin C 500 mg twice daily - Multiple Vitamin Daily - Drink a protein shake daily - Premiere Clear or Glucerna for Diabetic patients, Nepro for renal patients and premiere for non-renal and non-diabetic patients PLEASE ATTEMPT TO FEED THE PATIENT A DIABETIC DIET Diabetic Premiere Protein Shakes 2 x daily between meals May ambulate with Assistance Physical Therapy to assess what level of aid the patient needs to ambulate with assistance Patient may bear weight Report any of the following signs and symptoms of infection to the Wound Center at [phone] or go to the Emergency Department: Fever or chills Increased drainage Green or yellow drainage Foul odor Increased pain Hardness around the wound Redness, warmth or swelling of the surrounding tissue Color change to the wound Evenings / Weekends / Holidays If you call the wound center at the phone number provided above, please leave a detailed message that includes your full name, birthday, and phone number. We are seeing patients during the day, so we will return your call within a 24-48 hr period in the order your call was received. There is not an on-call provider assigned to the wound center. If you have an emergency that needs to be addressed, please go to an Urgent Care or Emergency Room. Thank you for your cooperation and understanding. If you are feeling ill, please call to reschedule your appointment. If you believe your illness to be wound related, call and leave a message using the directions above describing your symptoms. If you cannot wait 24-48 hrs for a callback, please get evaluated in the nearest emergency department. PLAN/ORDERS: Follow-up in the Wound Center with Dr Pickard January 12, 2025 at 10:00am Dr. Barnse in 6 weeks on 01/30/2025 at 1:00PM Continue HBOT until notified to stop. Continue aggressive nutritional support to assist wound healing, focusing on increasing protein intake, keeping blood sugars stable/controlled Blood sugars must be kept below 150 for wound healing Patient is a High Fall Risk due - UP WITH ASSIST ONLY HAVE PATIENT ATTEMPT CHAIR YOGA EXERCISES - LIMITED ANKLE MOVEMENT WEIGHT BEARING TOLERATED Please give patient premiere diabetic protein shakes 2 x daily between meals. Please send an updated medical list with patient for each visit. Hu Pickard DPM/martha/fm documented in this encounter [facility] 01-04-2025 Note [facility] 01-02-2025 Telephone encounter Note [facility] PH: [phone] FAX: [phone] There was a question about the patient's antibiotics. Clarified the antibiotic order with Dr. Frnaky Barnes. Vancomycin IV, Ceftriaxone IV, & Flagyl PO are what is currently ordered for the patient. Shared this information with Wilma. She voiced understanding with intent to comply. Encouraged to call with any questions. Bonnie Molina RN [facility] 01-02-2025 Miscellaneous Notes [facility] PH: [phone] FAX: [phone] There was a question about the patient's antibiotics. Clarified the antibiotic order with Dr. Franky Barnes. Vancomycin IV, Ceftriaxone IV, & Flagyl PO are what is currently ordered for the patient. Shared this information with Wilma. She voiced understanding with intent to comply. Encouraged to call with any questions. Bonnie Molina RN THOMAS Jackson LPN from the [facility] PH: [phone] FAX: [phone] Question is We don't have the white foam to pack the wound with during the wound vac change. Please adivse. Per Dr. Pickard : Spoke with Wilma, May try black foam wedge in the distal end of the wound. Please make sure all parts of the foam are removed with the dressing change. Please resort back to white foam When available. Wilma voiced understanding with intent to comply. documented in this encounter [facility] 01-02-2025 Telephone encounter Note THOMAS Jackson LPN from the [facility] PH: [phone] FAX: [phone] Question is We don't have the white foam to pack the wound with during the wound vac change. Please adivse. Per Dr. Pickard : Spoke with Wilma, May try black foam wedge in the distal end of the wound. Please make sure all parts of the foam are removed with the dressing change. Please resort back to white foam When available. Wilma voiced understanding with intent to comply. [facility] 01-01-2025 Telephone encounter Note January 01 labs reviewed, no changes Vanc trough wnl at 17.1 The results were attached to the M drive [facility] 01-01-2025 Note [facility] 12-29-2024 Note [facility] 12-27-2024 Telephone encounter Note DOSAGE CHANGE December 27 creat wnl at 0.72 (0.93) Random vanc 15.5 (33.5 trough) Munira gave orders over the phone to change the vanc to once a day with the same dosage of 1g Above orders given to the [facility] The tubes were taken to [facility] The results were attached to the M drive [facility] 12-25-2024 Telephone encounter Note [facility] [phone] Today's vanc is elevated at 33.5 Orders given to the nurse, Deb, to hold the vanc until further notice. They will obtain a random vanc and bmp on Wed. Once the results are finalized, Munira will review and give a decreased vanc dosage. The vanc infusion times may need to be adjusted since Shade leaves at 5:45am for hyperbarics. The results were attached to the M drive. [facility] 12-22-2024 Note [facility] 12-21-2024 Note [facility] 12-21-2024 History of Presen t illness Narrative Date of Visit: 12/21/2024 Problem list reviewed. CHIEF COMPLAINT: SP RIGHT ankle I&D and calcaneal bone biopsy and LEFT wound debridement and graft application 12/15/24 check B/L lower leg wounds DM II A1c 7.4 (10/25/24) DLS 02/08/24 ADM 08/17/24 HISTORY OF PRESENT ILLNESS: Patient presents for BL leg wound check. She believes the right leg wound is doing better since surgery. She saw Dr Barnes on Wednesday and is planning on starting IV abx tomorrow. She has had no issues with graft or with wound vac. She is doing HBO. She states pain is a 3/10. She relates she can't feel feet well and gets numbness. Hx She was admitted 08/17/24 and was DC to [facility] where she is still at. She was DC on cipro and flagyl which she finished taking. She relates her insurance wouldn't cover it so she is self paying and planning on going to the nonskilled assistive living side soon. She is at [facility]. Patient is taking protein drinks. Referred by aircraft hydraulic equipment mechanic, Dr. Dasilva. Patient is DM and sees aircraft hydraulic equipment mechanic Denies N/V/F/C/D/SOB/CP/LP. PCN allergy Hx RT 3rd perc flexor tenotomy (07/26/23) HX R great toe amputation 06/18/23, excision tibial and fibular sesamoid, bone biopsy first met head. Right 2nd toe amputation and hallux I&D 10/28/22. Hx s/p RT toe amp 3,4,5 (DOS 10/14/23) DME DM inserts 08/24/23 rx circade wraps 08/14/22 CURRENT MEDICATIONS: oxyCODONE HCl Oral Tablet 5 MG (07/05/2024) Take 1 tablet every 12 hours as needed for 7 day(s) Percocet Oral Tablet 5-325 MG (07/20/2024) Take 1 tablet every 12 hours as needed for 7 day(s) oxyCODONE-Acetaminophen Oral Tablet 5-325 MG (10/28/2022) Ketorolac Tromethamine Ophthalmic Solution 0.5 % (04/26/2023) Accu-Chek Jose Plus In Vitro Strip (09/23/2022) Atorvastatin Calcium Oral Tablet 80 MG (06/13/2023) miSOPROStol Oral Tablet 200 MCG (06/15/2023) TAKE 2 TABLETS BY MOUTH THE DAY PRIOR TO PROCEDURE AT BEDTIME WITH FOOD Fluticasone Propionate Nasal Suspension 50 MCG/ACT (12/15/2022) USE 2 SPRAYS IN EACH NOSTRIL DAILY X1 WEEK,THEN 1 SPRAY IN EACH NOSTRIL DAILY THEREAFTER NEEDED Nitrofurantoin Monohyd Macro Oral Capsule 100 MG (02/08/2023) Fluconazole Oral Tablet 200 MG (03/20/2024) TAKE 1 TABLET EVERY DAY FOR 21 DAYS Bactrim DS Oral Tablet 800-160 MG (06/24/2023) Take 1 tablet twice a day for 10 day(s) Ofloxacin Ophthalmic Solution 0.3 % (03/30/2023) diazePAM Oral Tablet 10 MG (02/19/2022) TAKE 1 TABLET 60 MIN BEFORE TEST Atorvastatin Calcium Oral Tablet 40 MG (11/18/2022) FLUoxetine HCl Oral Capsule 40 MG (01/26/2022) Enalapril Maleate Oral Tablet 10 MG (01/26/2022) TAKE 1 TABLET BY MOUTH EVERY DAY Erythromycin Ophthalmic Ointment 5 MG/GM (02/09/2022) APPLY 1 A SMALL AMOUNT LEFT EYE 4 TIMES A DAY Atorvastatin Calcium Oral Tablet 20 MG (01/26/2022) TAKE 1 TABLET BY MOUTH EVERY DAY Spironolactone Oral Tablet 25 MG (06/15/2023) TAKE 0.5 TABLETS BY MOUTH ONCE DAILY. Jardiance Oral Tablet 25 MG (06/14/2023) TAKE 1 TABLET BY MOUTH EVERY DAY WITH BREAKFAST Furosemide Oral Tablet 40 MG (11/18/2022) HumuLIN R U-500 KwikPen Subcutaneous Solution Pen-injector 500 UNIT/ML (06/14/2023) INJECT 40 UNITS SUBCUTANEOUSLY AT BREAKFAST, 100 UNITS AT LUNCH, 80 UNITS AT SUPPER. metFORMIN HCl Oral Tablet 1000 MG (11/23/2022) TAKE 1 TABLET BY MOUTH TWICE DAILY WITH MEALS. E11.3599 ALLERGIES: Amoxicillin Unknown Band-[place]id [place] Surg Dressing Other Bandaging Tape Other PAST MEDICAL HISTORY: Podiatry History remarkable for Foot Numbness, Fungal Nails, Leg or Foot Ulcers. The patient has a past medical history of Arthritis, Depression, DM-Medication Dependent, Poor Circulation. Neuropathy High Cholesterol SURGICAL HISTORY: Hand Tonsils HOSPITALIZATIONS: None Noted SOCIAL HISTORY: Smoking Status: Never smoker; Last Reviewed: 12/08/2023 Alcohol use: social drinker No drug use Social History Reviewed (01/16/2021 11:20:18 AM EST) FAMILY HISTORY: There is a family history of Denial of any knowledge of significant family history. Denial of any knowledge of significant family history Family History Reviewed (01/16/2021 11:20:19 AM EST) REVIEW OF SYSTEMS: Psychologic: Admits to No psych symptoms. Review of systems otherwise negative PHYSICAL EXAMINATION: Vital Signs: Weight 235 lbs; Height 5 ft 8 in; BMI 35.7 12/18/2024 2:13 PM (EST) Temperature 98.6 F; Pulse Rate 100 bpm; Blood Pressure 120 / 80 mm/Hg Vascular Exam: DP pulses of the RIGHT and LEFT foot are +1/4 PT pulses of the RIGHT and LEFT foot are +1/4 CFT is within normal limits, less than 3s to all digits, both feet. Skin temperature from proximal to distal is warm to warm, both feet. BL LE edema Dermatologic Exam: LEFT medial ankle wound measures 0.4x0.4x0.2cm with 70:30 granular fibrotic base, minimal surrounding slough, no surrounding edema and erythema, no purulence expressed, no probe to bone, no malodor, moderate serosanginous drainage. Into level of SUBCUTANEOUS tissue. NOT DEBRIDED LEFT lateral lower leg wound predebridement measures 0.2x0.2x0.1cm and post debridement measures 0.3x0.3x0.1cm with 70:30 granular fibrotic base, surrounding slough, no erythema, no purulence, no probe to bone, no malodor, moderate serosanguinous drainage. Into level of SUBCUTANEOUS TISSUE, partial thickness LEFT posterior Achilles lower leg wound measures 9.4x2.8x0.6cm with 85:15 granular fibrotic base, surrounding slough, no surrounding edema and erythema, no purulence expressed, no probe to bone-exposed achilles tendon with complete RUPTURE, no malodor, moderate serosanginous drainage. Into level of TENDON. NOT DEBRIDED GRAFT IN PLACE LEFT dorsal lateral foot wound predebridement 1x0.7x0.1 and post debridement measures 1.2x0.8x0.1cm with 80:20 granular fibrotic base, no surrounding callus, no surrounding edema and erythema, no purulence expressed, no probe to bone, no malodor, moderate serosanginous drainage. Into level of SUBCTUANTEOUS tissue LEFT anterior lower leg wound measures 3.5x2.6x0.1cm with 80:20 granular fibrotic base, surrounding slough, no surrounding edema and erythema, no purulence expressed, no probe to bone, no malodor, moderate serosanginous drainage. Into level of SUBCTUANTEOUS tissue NOT DEBRIDED RIGHT posterior Achilles lower leg cluster wound predebridement measures 10.8x3x1.5cm and post debridement measures 11.0x3.2x1.7cm with tunnelling at 6 o'clock for 2.6cm, 60:40 granular fibrotic base, surrounding slough, no surrounding edema and IMPROVED MINIMAL erythema, no purulence expressed, YES probe to bone-Exposed achilles tendon posteriorly with fraying and complete RUPTURE and tracking to calcaneus, no malodor, moderate serosanginous drainage. Into level of BONE. RIGHT lateral lower leg wound and RIGHT anterior lower leg wound healed LEFT foot 2nd toe tuft hyperkeratotic tissue Nails 2-5 left are thickened, elongated and discolored with subungual debris. The nails are greater than .3mm in thickness. The discoloration is yellowish in color. Innerspaces 1-4 LT are clean dry and intact. Skin texture and turgor are decreased. absent or decreased hair growth bilateral. chronic lower leg red hyperpigmentation Neurologic Exam: Comments/Other Findings: Vibratory sensations decreased LT, Protective sensations absent LT tested with 5.07 monofilament, and light, sharp, and temperature sensations intact LT. Normal Babinski test noted bl foot after testing Orthopedic Exam: Additional Orthopedic Findings: RIGHT foot toe amputations 1,2,3,4,5 LEFT 2nd hammertoe contracture semi- rigid BL foot with absent plantar flexion 0/5 muscle strength with palpable rupture to achilles tendon DIAGNOSIS: Type II diabetes mellitus with neurological manifestations PVD (peripheral vascular disease) Amputated toe of right foot Personal history of diabetic foot ulcer Callus Onychomycosis Venous ulcer of left lower extremity without varicose veins Ulcer of left lower extremity, limited to breakdown of skin Venous ulcer of right lower extremity without varicose veins Ulcer of right lower extremity, limited to breakdown of skin 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 Diabetic foot ulcer Diabetic leg ulcer Achilles rupture, left 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 Achilles rupture, right Ulcer of left foot with fat layer exposed Malnutrition 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 Cellulitis of right ankle Foot osteomyelitis, right Ulcer of left foot, limited to breakdown of skin PLAN AND TREATMENT: ASSESMENT & PLAN BL Foot and Ankle and Lower extremity Exam and Evaluation carried out with a treatment plan reviewed with the patient and findings discussed with patient including alternatives, benefits, complications and risks TESTS / IMAGING / X-RAY EXAM PREVIOUS right foot XR: There was noted to be normal joint spaces unless noted. No fractures or dislocations noted. No soft tissue emphysema noted. No osteopenia or sclerosis noted. tibial and fibular sesamoid excised, there is small calcified piece of fibular sesamoid bone noted to plantar lateral 1st met. RT foot amp at MTPJ 1,2,3,4,5. no lytic lesions. no soft tissue gas noted. 08/17/24 Xray left foot: No radiographic presence of OM 08/17/24 Xray tib/fib left leg: No radiographic presence of OM 08/17/24 Xray tib/fib right leg: No radiographic presence of OM 08/17/24 CRP: 13.6 and 08/18/24 ESR: 97 04/05/24 PVR b/l leg: Left MANJEET 0.9 and Right 0.95 08/18/24 Left leg wound culture: Few pseudomonas aeruginosa FINAL 08/18/24 MRI BL LE: 1. No drainable soft tissue abscess or evidence for osteomyelitis 2. Diffuse edema/cellulitis and fatty muscle atrophy with nonspecific myositis. 10/01/24 albumin: 3.3 11/27/24 right achilles wound Cx: MSSA, Streptococcus agalactiae (group b streptococcus) Abnormal, Proteus mirabilis Abnormal 12/15/24 right foot XR: Interval amputation of the 3rd, 4th and 5th toes. Previous 1st and 2nd toe amputations. Stable chronic deformities of the distal 2nd and 5th metatarsals. No acute fracture. Midfoot osteoarthrosis and postoperative soft tissue swelling. Soft tissue suction device adjacent to the distal tibia and posterior skin clint. 12/15/24 right achilles wound Cx: MRSA and Proteus mirabilis and Mixed anaerobic judy 12/15/24 right calcaneus bone Cx: Enterococcus faecalis Abnormal and Proteus mirabilis and Mixed anaerobic judy PATH: Cancellous bone with reactive changes, negative for osteomyelitis I personally reviewed the chart including recent visit with Dr Barnes on 09/19/24 where patient is to be started on IV antibiotics starting 12/22/24 for 6 weeks once PICC obtained. Plan for vancomycin and ceftriaxone and Flagyl. LEFT anterior lower leg wound stable. LEFT lateral lower leg ulcer stable. LEFT posterior achilles lower leg ulcer has GRAFT INTACT. LEFT dorsal lateral foot ulcer stable. LEFT medial ankle ulcer stable. RIGHT posterior achilles lower leg ulcer improved. LEFT anterior lower leg wound healed. RIGHT anterior lower leg wound healed. RIGHT lateral lower leg wound healed. LEFT dorsal lateral foot ulcer, LEFT lateral lower leg ulcer treated with sharp excisional debridement carried out of the wound with non selective sharp excisional debridement past the dermis into SUBCUTANEOUS level with use of curette and 15 scalpel blade. Devitalized tissue removed. We then flushed out the wound with wound wash sterile saline. Area numbed with lidocaine gel if sensate prior. RIGHT posterior Achilles lower leg ulcer treated with sharp excisional debridement carried out of the wound with non selective sharp excisional debridement past the dermis into BONE level with use of curette, bone rongeur and 15 scalpel blade. Devitalized tissue removed and we then flushed out the wound with wound wash sterile saline. Area numbed with lidocaine gel if sensate prior. Discussed importance in offloading, proper nutrition including blood sugar control and getting enough protein and vitamins, infection prevention, and proper wound care in wound healing. Also discussed detrimental impact of smoking on healing. Reviewed proper wound care with patient. To not soak wound but to clean appropriately. To watch for signs of infection both local and systemic. These were reviewed with the patient. If seen to contact office or go to ED. To continue wound care consisting of washing the wound with soap and water or vashe solution soaked gauze for 3-5 minutes. Then to apply dressing consisting of noted below Reviewed OR findings with patient. Clinically patient looks better than previously seen Graft to stay in place on left for another 2-3 weeks Patient has findings concerning for osteomyelitis. Discussed conservative and surgical options. Discussed IV antibiotics and wound care vs amputation with patient. Offered referral to infectious disease. Discussed all risks and benefits of all options. All questions were answered. Patient elects to proceed with CONSERTATIVE treatment plan. follow up with ID, Dr Barnes as scheduled. To start IV abx per ID for 6 weeks vancomycin and ceftriaxone and Flagyl. RIGHT side wound vac only. Discussed need to fill in the deficit from BL achilles rupture as well as to get coverage over achilles. Discussed wound vac is best option. Discussed would need to fill in wounds a bit more with wound vac before considering grafting. Discussed as bridging away from wound site keeping suction at 175mmHg to best effectively heal area. Discussed with both achilles ruptured she will struggle with push off in gait. Discussed achilles likely ruptured due to chronic ulceration with infections and drying out of tendon. Discussed if we can get her healed she will need AFO to aid in walking. Discussed she is at high risk for BKA BL, right moreso than left. Discussed she can weight bear as tolerated. Discussed need assist for activities as she is a high fall risk. Discussed limiting motion at ankle joint to stop tugging on wounds to aid in healing. Discussed need to balance this with maintaining muscle. Discussed need for better nutrition Patient educated on the importance of proper nutrition to help optimize healing. Discussed eating three balanced meals daily and meal preparation. Discussed importance of high protein intake. Discussed supplementation drinks such as ensure, glucerna, nepro, tamiko. Discussed need for blood sugar control, proper vitamin intake whether dietary or through supplementation. Discussed Vitamin C, Multi Vitamin, zinc, and magnesium supplementation. Discussed may need to watch sodium intake as well especially if patient experiences swelling. Offered nutrition referral. Patient taking protein supplement drink BID between meals Follow up 1-2 week for wound check. wound care: All changes to wound vac settings and wound care must be cleared through Dr. Pickard prior to any changes being made. The pressure must remain at 175 due to the amount of tracking that must be done for the wounds Clear vac drape to all skin where foam will be placed. It is imperative to have all skin covered with clear drape where the black foam will be placed as there are new wounds where the black foam was placed directly on the patient's skin Right Achilles: WOUND VAC: Please apply a wound vac dressing on right achilles wound 12/19/24: KCL Recommended Settings: 175 mmHg, continuous Intensity High Continuous suction Wound Vac: Skin prep to naya-wound Duoderm to naya-wound of all wounds Apply Adaptic to the entire wound base all wounds Calcium Alginate AG to the skin tears on the posterior leg under the vac drape. Clear vac drape to all skin where foam will be placed and for bridged areas: It is imperative to have all skin covered with clear drape where the black foam will be placed. White foam tucked into tunneled areas. Black foam to wound bed and over the graft site - be sure to not over pack wounds with foam Track pad to be placed avoiding all bony prominence Pad and protect skin from tubing at all times using ABD pads between patient's skin and VAC tubing Change dressing 3 x weekly and as needed to keep clean and dry Apply a loose olegario wrap to secure dressings Right Achilles/heel alternate dressing (should wound vac fail): Rinse wound with saline. Pat dry with gauze. -Apply a piece of Adaptic (mesh material) cut to fit over the area of the wound - Place ABD pad over achilles and Heel cup ABD on heel. - Wrap with Kerlix and secure with tape. - Change dressing daily and as needed to maintain a clean dry dressing. - Secure with olegario wrap from behind the toes to 1 below the knee - OLEGARIO WRAPS ARE NOT FOR COMPRESSION - THEY ARE ONLY TO HELP KEEP DRESSINGS IN PLACE Left Achilles, Left medial Ankle, Left medial lower leg: Graft is to remain intact for 3 to 4 weeks following surgery. -If dressing soiled, outer dressing . Leave stapled graft below adaptic layer intact. - Cover graft layer with: abd pads - Secure dressing with: conform or kerlix wrap. tape - Change outer dressing daily if needed to keep clean and dry - Secure with olegario wrap from behind the toes to 1 below the knee - OLEGARIO WRAPS ARE NOT FOR COMPRESSION - THEY ARE ONLY TO HELP KEEP DRESSINGS IN PLACE Left dorsal/lateral foot, Left Lateral Lower leg - Cleanse are with Vashe, allow to soak 5 to 10 min. - Cover the areas with Calcium Alginate AG - Place ABD pads over the areas with Calcium Alginate AG. - Secure with Kerlix and Tape. Be sure not to tape to skin. - Loosely apply olegario wrap to the dressings to keep in place. - Avoid sitting with legs in a dependent position or standing for long periods of time. - Attempt to lay flat and elevate your legs above the level of your heart 2-3 times daily, for 30 minutes at a time. - Be sure to continue walking and/or calf pumps and exercises to mimic writing the alphabet with your foot, as instructed Type II diabetes mellitus with neurological manifestations 250.60 E11.49 Diagnosis Notes Drag & Drop to change diagnosis order PVD (peripheral vascular disease) 443.9 I73.9 Diagnosis Notes Drag & Drop to change diagnosis order Amputated toe of right foot 895.0 S98.131A Diagnosis Notes Drag & Drop to change diagnosis order Personal history of diabetic foot ulcer V12.29 Z86.31 Diagnosis Notes Drag & Drop to change diagnosis order Callus 700 L84 Diagnosis Notes Drag & Drop to change diagnosis order Onychomycosis 110.1 B35.1 Diagnosis Notes Drag & Drop to change diagnosis order Venous ulcer of left lower extremity without varicose veins 459.81 I87.2 Diagnosis Notes Drag & Drop to change diagnosis order Ulcer of left lower extremity, limited to breakdown of skin 707.10 L97.921 Diagnosis Notes Drag & Drop to change diagnosis order Venous ulcer of right lower extremity without varicose veins 459.81 I87.2 Diagnosis Notes Drag & Drop to change diagnosis order Ulcer of right lower extremity, limited to breakdown of skin 707.10 L97.911 Diagnosis Notes Drag & Drop to change diagnosis order 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 707.13 L97.323 Diagnosis Notes Drag & Drop to change diagnosis order Diabetic foot ulcer 250.80 E11.621 Diagnosis Notes Drag & Drop to change diagnosis order Diabetic leg ulcer 250.80 E11.622 Diagnosis Notes Drag & Drop to change diagnosis order Achilles rupture, left 845.09 S86.012A Diagnosis Notes Drag & Drop to change diagnosis order 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 707.13 L97.312 Diagnosis Notes Drag & Drop to change diagnosis order Achilles rupture, right 845.09 S86.011A Diagnosis Notes Drag & Drop to change diagnosis order Ulcer of left foot with fat layer exposed 707.15 L97.522 Diagnosis Notes Drag & Drop to change diagnosis order Malnutrition 263.9 E46 Diagnosis Notes Drag & Drop to change diagnosis order 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 707.13 L97.314 Diagnosis Notes Drag & Drop to change diagnosis order Cellulitis of right ankle 682.6 L03.115 Diagnosis Notes Drag & Drop to change diagnosis order Foot osteomyelitis, right 730.27 M86.9 Diagnosis Notes Drag & Drop to change diagnosis order Ulcer of left foot, limited to breakdown of skin 707.15 L97.521 Nursing Documentation Pertinent Medical History: DM2, HTN, venous insufficiency, & heart failure Wound Etiology according to patient: wounds started February 2024 Pt had right great toe amputation June 18, 2023 Patient arrived via: Ambulatory with cane Home Care Company/Nursing Facility: [facility] Consent captured for debridement per Hu Pickard DPM and good until April 2025 Anticoagulant Therapy: ASA 81mg ACTIVE CARE PER PROVIDER: Hu Pickard DPM Application Dates: Grafts are complete 01/07/2023 [facility] 01/15/2023 Apl[facility]raf 01/21/2023 A[facility] 01/27/2023 Apl[facility] 02/04/2023 [facility] Wounds 1-38 previously closed 40 closed 44-45 closed 47-48 Closed 50 Closed 51 closed WOUND # 49 LOCATION: Left anterior lower leg - (new 11/10/24) 11/17/24 closed, but fragile Closed 12/08/2024 WOUND #52 LOCATION: Right anterior lower leg (NEW 11/17/24) closed 11/24/24, 12/01/24 re-opened Closed 12/08/24 WOUND #53 LOCATION: Right lateral lower leg (NEW 11/17/24) closed 11/24/24, 12/01/24 re-opened Closed 12/08/24 ___ WOUND ASSESSMENT: Refer to Provider's Wound Assessment Note VASCULAR ASSESSMENT BY PROVIDER: See provider wound assessment note CHF History: Yes as of February 2022, Dr. Sadler in Cardiology EDEMA: Right Foot: generalized brawny Right ankle: generalized brawny Right Calf: 1+ Left Foot: generalized brawny Left ankle: generalized brawny Left Calf: 1+ MEASUREMENTS: in CM Right Calf: 34.0 Right Ankle: 23.2 Left Calf: 32.5 Left Ankle: 23.3 Length: 43.0 not measured at visit WOUND PHOTOGRAPHY: YES x 3 (date taken 12/19/24) DEBRIDEMENT PROCEDURE BY PROVIDER: Anesthetic Used: N/A Other procedure: N/A Specimen collected: N/A WOUND TREATMENT PER MD ORDER: Wounds cleansed by mechanical debridement to allow provider to visualize wound base\ *Silicone Allergy LEFT LOWER LEG WOUNDS Graft placed in the OR 12/15/24 with Hu Pickard DPM to Left and Right Achilles and stapled in place. DO NOT REMOVE FOR 3-4 WEEKS AFTER SURGERY. WOUND # 41 - LOCATION: Left Medial Ankle (NEW 07/26/24 (not measured today 12/21/24) L: cm x W: cm x D: cm Graft in place WOUND # 43 - LOCATION: Left Dorsal / Lateral Foot -(NEW 07/26/24 L: 1.2 cm x W: 0.8 cm x D: scab Cleansed with: vashe Applied to naya-wound skin: Applied to wound bed: Calcium Alginate AG Covered and secured with: abd, kerlix, tape Secure with olegario wrap from behind the toes to 1 below the knee Lose to only secure the dressings WOUND # 46 LOCATION: Left Lateral Lower Leg (NEW 10/12/24)) L: 0.3 cm x W: 0.3 cm x D: 0.1 cm Cleansed with: vashe Applied to naya-wound skin: Applied to wound bed: Calcium Alginate AG Covered and secured with: abd, kerlix, tape Secure with olegario wrap from behind the toes to 1 below the knee Lose to only secure the dressings WOUND # 42 - LOCATION: Left Achilles (NEW 07/26/24) (not measured today 12/19/24) L: 9.4 cm x W: 2.7 cm x D: 1.3 cm - Tendon exposed Cleansed with: Applied to naya-wound skin: Applied to wound bed: ABD pad Covered and secured with: abd, kerlix, tape Secure with olegario wrap from behind the toes to 1 below the knee Lose to only secure the dressings - - - - - - - - - - - - - - - - - - - - - - - - - - - - - - - - - - - - - - - - - - - - - - - - - - - - - - - - - - - - - - - - - - - - - - - - RIGHT LOWER LEG WOUNDS WOUND # 39 LOCATION: Right Achilles Cluster (Hold Vac 11/27/2024 on right side only) L: 10.7 cm x W: 3.1 cm x D: 1.5 cm - Tendon exposed Graft intact Tunnel: in cm 0600: 2.6 Undermining: in cm Cleansed with: Vashe to area not covered with graft Applied to naya-wound skin: Duoderm Applied to wound bed: White foam to the tunneled area, black foam to entire area including over the graft. Bridge to the front. Calcium Alginate AG to the posterior skin tears from the Vac drape. Covered and secured with: Vac drape. Secure with: Kerlix, olegario wrap from behind the toes to 1 below the knee Lose to only secure the dressings - - - - - - - - - - - - - - - - - - - - - - - - - - - - - - - - - - - - - - - - - - - - - - - - - - - - - - - - - - - - - - - - - - - - - - - - COMPRESSION: NO COMPRESSION. Gentle olegario wraps only to secure dressings SPECIAL NEEDS: Coordination of care - AVS faxed to [facility] [place] Emotional support N/A OR set-up N/A Yarn Examiner N/A Incontinence needs N/A DME company: ordered 03/01/24 [place] wraps, Supplies ordered 06/07/2024 x 30 days with 2 refills, PICC line with IV antibiotics ordered today 12/19/24 DISCHARGED in stable condition to: back to [facility] with transport PLAN/ORDERS: Follow-up in the Wound Center with Dr Pickard 1-[address] Barnes in 6 weeks on 01/30/2025 at 1:00PM -Plan for PICC line placement on 12/22/2024. You will be on two PICC antibiotics. -You were sent an oral antibiotic to start taking as soon as possible. Once IV antibiotics are started you may stop the oral antibiotics -Continue HBOT until notified to stop. OTHER EDUCATION: Education performed regarding lymphedema/edema: n/a Elevation of extremity above the heart for 30 minutes three times daily and as needed Exercise such as writing the ABC's with your toes in the air, walking and/or calf pumps Wearing compression as ordered by provider Diet controlling of sodium as instructed by provider Use of medication to help control edema. UNIVERSAL PROTOCOL / SAFETY CHECKLIST Procedure to be Performed: Serial Sharp Wound Debridement. Sign In:0821 A Moment of CARE was completed. Appropriate PPE (Personal Protective Equipment) worn by all providers involved with the procedure. Special equipment utilized Curette. Patient/Surrogate Stated/Verified:0821 Patient name, Date of , Relevant allergies, and The intended procedure Time Out:0853 Relevant labs, photos, and/or imaging studies have been reviewed. Intended patient and procedure match the source document(s) (e.g. consent, H&P, associated studies [imaging, pathology]) match the intended patient and procedure. Consent obtained and matches the intended procedure. Yes. Correct side/site is not applicable. Medications required for this procedure are verified. Fire risk assessed and is not applicable. Implants: are not applicable. Sign Out:0907 Specimens not collected. All instruments, equipment, possible retained foreign bodies are accounted for. Yes. The post-procedure plan of care has been communicated to the patient or surrogate. Current HBOT - Dr. Benitez in to evaluate documented in this encounter [facility] 12-21-2024 Telephone encounter Note The patient's assisted living facility will be moving her to skilled care while she is on IV abx. The facility will provide medications not CSI. Talked to Mary Kate at facility [phone]. Orders, labs and notes faxed to [phone] Attn Mary Kate per her request. Confirmed picc/first dose scheduled for 12-22-24 at 10:15 [facility] 12-21-2024 Telephone encounter Note PICC placement and first dose scheduled 12-22-24 at 10:15. LMOVM for Martha at [facility] 12-21-2024 Instructions Heidi Rush LPN - 12/21/2024 8:23 AM EDT WOUND CARE INSTRUCTIONS- Shade Brambila Wound location: Bilateral Lower Legs [facility]: FAX: [phone] All changes to wound vac settings and wound care must be cleared through Dr. Pickard prior to any changes being made. The pressure must remain at 175 due to the amount of tracking that must be done for the wounds Clear vac drape to all skin where foam will be placed. It is imperative to have all skin covered with clear drape where the black foam will be placed as there are new wounds where the black foam was placed directly on the patient's skin Right Achilles: WOUND VAC: Please apply a wound vac dressing on right achilles wound 12/19/24: KCL Recommended Settings: 175 mmHg, continuous Intensity High Continuous suction Wound Vac: Skin prep to naya-wound Duoderm to naya-wound of all wounds Apply Adaptic to the entire wound base all wounds Calcium Alginate AG to the skin tears on the posterior leg under the vac drape. Clear vac drape to all skin where foam will be placed and for bridged areas: It is imperative to have all skin covered with clear drape where the black foam will be placed. White foam tucked into tunneled areas. Black foam to wound bed and over the graft site - be sure to not over pack wounds with foam Track pad to be placed avoiding all bony prominence Pad and protect skin from tubing at all times using ABD pads between patient's skin and VAC tubing Change dressing 3 x weekly and as needed to keep clean and dry Apply a loose olegario wrap to secure dressings Right Achilles/heel alternate dressing (should wound vac fail): Rinse wound with saline. Pat dry with gauze. -Apply a piece of Adaptic (mesh material) cut to fit over the area of the wound - Place ABD pad over achilles and Heel cup ABD on heel. - Wrap with Kerlix and secure with tape. - Change dressing daily and as needed to maintain a clean dry dressing. - Secure with olegario wrap from behind the toes to 1 below the knee - OLEGARIO WRAPS ARE NOT FOR COMPRESSION - THEY ARE ONLY TO HELP KEEP DRESSINGS IN PLACE Left Achilles, Left medial Ankle, Left medial lower leg: Graft is to remain intact for 3 to 4 weeks following surgery. -If dressing soiled, outer dressing . Leave stapled graft below adaptic layer intact. - Cover graft layer with: abd pads - Secure dressing with: conform or kerlix wrap. tape - Change outer dressing daily if needed to keep clean and dry - Secure with olegario wrap from behind the toes to 1 below the knee - OLEGARIO WRAPS ARE NOT FOR COMPRESSION - THEY ARE ONLY TO HELP KEEP DRESSINGS IN PLACE Left dorsal/lateral foot, Left Lateral Lower leg - Cleanse are with Vashe, allow to soak 5 to 10 min. - Cover the areas with Calcium Alginate AG - Place ABD pads over the areas with Calcium Alginate AG. - Secure with Kerlix and Tape. Be sure not to tape to skin. - Loosely apply olegario wrap to the dressings to keep in place. - Avoid sitting with legs in a dependent position or standing for long periods of time. - Attempt to lay flat and elevate your legs above the level of your heart 2-3 times daily, for 30 minutes at a time. - Be sure to continue walking and/or calf pumps and exercises to mimic writing the alphabet with your foot, as instructed Foot care Many people with diabetes lose the feeling in their feet (neuropathy). Therefore, they might not know they have an injury that can lead to serious problems, such as foot removal (amputation). By taking care of your feet, most serious problems can be prevented. If you have problems checking your own feet, have a family member or friend help you. Easy steps to protect your feet: Check your feet every day for: dry or cracked skin, cuts, open sores, blisters, redness, swelling, corns, calluses, or toenail problems. Use a mirror if necessary. Report any problems to your doctor. Keep your feet clean and dry, especially between the toes. If your feet are dry or cracked use a moisturizing lotion at least daily but never between the toes. See your judicial clerk every three months for foot and nail care. Don't go barefoot. Wear shoes or slippers at all times. Wear comfortable shoes that fit well. Check inside your shoes for foreign objects or rough spots before putting on shoes. Always wear socks. Avoid using anything hot, such as heating pads, hot water bottles, hot tubs, or bath water. Check the temperature of bath water with your elbow not your foot. Take your shoes and socks off at every office visit to remind your doctor to check your feet. Also, never tape a dressing directly to the skin on your legs or feet. Instead, use a self-adherent bandage to avoid injuring the skin on your lower extremities If calluses form they can cause wound ulcers to appear under the callus, must be seen by [employer] every three months to prevent. Maintain controlled blood sugar, if blood sugar is consistently above 200 this can delay wound healing and aggravate neuropathy. To give your wound the best chance to heal: - Eat three balanced meals daily focusing on the protein - Control your blood sugar. Keep blood sugar less than 200 - Complete your wound care instructions as ordered - Vitamin C 500 mg twice daily - Multiple Vitamin Daily - Drink a protein shake daily - Premiere Clear or Glucerna for Diabetic patients, Nepro for renal patients and premiere for non-renal and non-diabetic patients PLEASE ATTEMPT TO FEED THE PATIENT A DIABETIC DIET Diabetic Premiere Protein Shakes 2 x daily between meals May ambulate with Assistance Physical Therapy to assess what level of aid the patient needs to ambulate with assistance Patient may bear weight Report any of the following signs and symptoms of infection to the Wound Center at [phone] or go to the Emergency Department: Fever or chills Increased drainage Green or yellow drainage Foul odor Increased pain Hardness around the wound Redness, warmth or swelling of the surrounding tissue Color change to the wound Evenings / Weekends / Holidays If you call the wound center at the phone number provided above, please leave a detailed message that includes your full name, birthday, and phone number. We are seeing patients during the day, so we will return your call within a 24-48 hr period in the order your call was received. There is not an on-call provider assigned to the wound center. If you have an emergency that needs to be addressed, please go to an Urgent Care or Emergency Room. Thank you for your cooperation and understanding. If you are feeling ill, please call to reschedule your appointment. If you believe your illness to be wound related, call and leave a message using the directions above describing your symptoms. If you cannot wait 24-48 hrs for a callback, please get evaluated in the nearest emergency department. PLAN/ORDERS: Follow-up in the Wound Center with Dr Pickard 1-[address] Barnes in 6 weeks on 01/30/2025 at 1:00PM -Plan for PICC line placement on 12/22/2024. You will be on two PICC antibiotics. -You were sent an oral antibiotic to start taking as soon as possible. Once IV antibiotics are started you may stop the oral antibiotics -Continue HBOT until notified to stop. Continue aggressive nutritional support to assist wound healing, focusing on increasing protein intake, keeping blood sugars stable/controlled Blood sugars must be kept below 150 for wound healing Patient is a High Fall Risk due - UP WITH ASSIST ONLY HAVE PATIENT ATTEMPT CHAIR YOGA EXERCISES - LIMITED ANKLE MOVEMENT WEIGHT BEARING TOLERATED Please give patient premiere diabetic protein shakes 2 x daily between meals. Hu Pickard DPM /AA/SV documented in this encounter [facility] 12-21-2024 Note [facility] 12-20-2024 Telephone encounter Note Martha at [facility] confirmed benefits. IR notified ok to schedule picc placement and first dose. [facility] 12-19-2024 Telephone encounter Note Today's office note: Obtain the PICC line Start vancomycin and ceftriaxone Add Flagyl for anaerobic coverage Treat for a total of 6 weeks with IV antibiotics Will start Zyvox, Flagyl and Omnicef in the room while PICC line is being placed Discussed medication interactions with the patient Monitor for any signs of infection at the surgical site Wound care Follow-up in the wound center 6 weeks [facility] 12-19-2024 Telephone encounter Note Summary: COPAT ACTION-FOR IDC USE ONLY RS-MG WCC DX: R HEEL OM TX: VANCOMYCIN 1GMIV Q12 TX: CEFTRIAXONE 2GM IV Q24 STOP: 42 DAYS LABS: CBC/D ALT CREAT VANC T ESR CRP QMON FU: EOT [facility] Intake faxed to [facility] for pharmacy and nursing. PICC and first dose to be scheduled after benefits confirmed. [facility] 12-19-2024 Note [facility] 12-19-2024 History of Presen t illness Narrative Images from the original note were not included. INFECTIOUS DISEASE WOUND CENTER NOTE Patient Name: Shade Brambila Date: 12/19/2024 ASSESSMENT: Right heel osteomyelitis s/p biopsy on 12/15/2024 with cultures positive for Proteus, Enterococcus faecalis and Staphylococcus aureus. Patient has had MSSA in the past Diabetes mellitus type 2 Charcot's arthropathy Obesity Chronic kidney disease Depression RECOMMENDATIONS Obtain the PICC line Start vancomycin and ceftriaxone Add Flagyl for anaerobic coverage Treat for a total of 6 weeks with IV antibiotics Will start Zyvox, Flagyl and Omnicef in the room while PICC line is being placed Discussed medication interactions with the patient Monitor for any signs of infection at the surgical site Wound care Follow-up in the wound center 6 weeks Complex antimicrobial therapy counseling and treatment. Rationale for switching antibiotics discussed. Education provided regarding long-term antimicrobial therapy as well as side effects. Discussed sensitivities with microbiology department and antimicrobial stewardship pharmacist that will influence antimicrobial therapy and the success of treatment for this infection. INTERVAL HISTORY: ROS done with pt and negative unless stated. The patient underwent debridement of the right ankle and heel wounds with bone biopsy post lavage samples positive for Proteus, Enterococcus, anaerobes and Staphylococcus MEDICATIONS: furosemide (LASIX) 20 mg tablet Take 1 tablet by mouth once daily. pt stated that she is working with heart failure RN BABY on lasix polyethylene glycol 3350 (MIRALAX) 17 gram packet Take 17 g by mouth once daily. Dissolve dose in 4 - 8 ounces of liquid and take as directed. Blood-Glucose Sensor (DEXCOM G7 SENSOR) [facility] For continuous glucose monitoring Blood-Glucose Meter,Continuous (DEXCOM G7 CLAIMS ADJUSTOR) [facility] For continuous glucose monitoring. GLUCAGON EMERGENCY KIT, HUMAN, INJECTION by INJECTION(UNSPECIFIED PARENTERAL ROUTES) route. sodium phosphate,mono-dibasic (ENEMA RECTAL) by RECTAL route as needed (constipation). may be given daily, if needed (Patient not taking: Reported on 11/30/2024) bisacodyl (DULCOLAX) 10 mg supp 10 mg by RECTAL route once daily as needed for constipation. senna-docusate (SENEXON-S) 8.6-50 mg per tablet Take 1 tablet by mouth as needed for constipation. (Patient not taking: Reported on 11/30/2024) naloxone (NARCAN) 1 mg/mL for intranasal administration 1 mg by INTRANASAL route as needed for known or suspected opioid overdose. Once for opioid overdose may repeat every 2-3 min insulin lispro 100 unit/mL injection Sliding scale- Blood sugar 111-150 Give 0 units 151-200 Give 1 unit 201-250 Give 2 units 251-300 Give 3 units 301-350 Give 4 units 351-400 Give 5 units Greater than 400 Give 5 units and Notify Provider fluticasone (FLONASE) 50 mcg/actuation nasal spray Use 2 Sprays in each nostril once daily. (Patient not taking: Reported on 11/30/2024) ondansetron (ZOFRAN) 4 mg tablet Take 4 mg by mouth every 8 hours as needed for nausea/vomiting. traMADol (ULTRAM) 50 mg tablet Take 50 mg by mouth every 6 hours as needed for pain. acetaminophen (TYLENOL) 325 mg tablet Take 2 tablets by mouth every 6 hours as needed for fever (specify temp.) or pain (temp >100.1F). senna (SENOKOT) 8.6 mg tab Take 1 tablet by mouth two times a day. (Patient not taking: Reported on 11/30/2024) empagliflozin (JARDIANCE) 25 mg tablet TAKE 1 TABLET BY MOUTH EVERY DAY WITH BREAKFAST ACCU-CHEK JOSE PLUS TEST STRP test strip USE TO TEST BLOOD GLUCOSE 3 TIMES DAILY enalapril (VASOTEC) 20 mg tablet Take 0.5 tablets by mouth two times a day. atorvastatin (LIPITOR) 80 mg tablet take 1 tablet by mouth every day ascorbic acid (VITAMIN C ORAL) Take 500 mg by mouth two times a day. aspirin, enteric coated (ASPIRIN, ENTERIC COATED) 81 mg EC tablet Take 81 mg by mouth once daily. cyanocobalamin, vitamin B-12, 1,000 mcg/mL kit 1,000 mcg by INJECTION(UNSPECIFIED PARENTERAL ROUTES) route once every month. Blood Pressure Monitor Please monitor blood pressure 1-2 hours after taking morning medications. FLUoxetine (PROZAC) 40 mg capsule Take by mouth q 24 HR. lancets (ONE TOUCH DELICA) 33 gauge USE TO BLOOD GLUCOSE 3 TIMES DAILY. INSULIN DEPENDENT E11.3299, E11.65, Z79.4 insulin needles, DISPOSABLE, (BD INSULIN PEN NEEDLE UF) 31 gauge x 5/16 FOUR DAILY FOR INSULIN INJECTIONS. Blood-Glucose Meter misc Use to test blood glucose 3 times daily. Insulin Dependent E11.3299, E11.65, Z79.4 Cholecalciferol, Vitamin D3, 50 mcg (2,000 unit) cap Take 1 tablet by mouth once daily. PHYSICAL EXAM: Vital signs: stable, afeb General: alert, oriented, NAD Lungs: bilaterally clear to auscultation Heart: regular rate and rhythm Abdomen: soft, non tender, non distended, BS+ Extremities: no swollen joints Skin: no rash Bilateral heel wounds with the synthetic grafts. Lab data: reviewed WBC (k/uL) Date Value 12/05/2024 10.11 10/01/2024 10.29 08/20/2024 8.39 02/04/2021 10.63 02/03/2021 8.27 04/01/2017 8.50 Hemoglobin (g/dL) Date Value 12/05/2024 10.0 10/01/2024 10.0 08/20/2024 9.1 02/04/2021 11.7 02/03/2021 11.7 04/01/2017 14.5 INR (no units) Date Value 08/18/2024 1.2 Sodium (mmol/L) Date Value 12/05/2024 136 10/01/2024 136 08/20/2024 134 02/04/2021 137 02/03/2021 129 04/01/2017 138 NA (mmol/L) Date Value 09/19/2021 141 02/05/2020 139 Potassium (mmol/L) Date Value 12/05/2024 4.2 10/01/2024 4.3 08/20/2024 5.1 02/04/2021 4.0 02/03/2021 4.6 04/01/2017 3.9 K (mmol/L) Date Value 09/19/2021 4.3 02/05/2020 4.8 CO2 Date Value 12/05/2024 28 mmol/L 10/01/2024 26 mmol/L 08/20/2024 23 mmol/L 02/04/2021 27 mmol/L 02/03/2021 24 mmol/L 02/05/2020 28 MEQ/L 04/01/2017 28 mmol/L BUN Date Value 12/05/2024 26 mg/dL 10/01/2024 32 mg/dL 08/20/2024 24 mg/dL 09/19/2021 18 MG/DL 02/04/2021 23 mg/dL 02/03/2021 29 mg/dL 02/05/2020 15 MG/DL 04/01/2017 12 mg/dL Creatinine Date Value 12/05/2024 0.79 mg/dL 10/01/2024 0.79 mg/dL 08/20/2024 0.66 mg/dL 09/19/2021 0.67 MG/DL 02/04/2021 0.96 mg/dL 02/03/2021 1.16 mg/dL 02/05/2020 1.04 MG/DL 04/01/2017 0.68 mg/dL AST (U/L) Date Value 10/01/2024 27 08/20/2024 15 08/19/2024 18 02/04/2021 24 02/03/2021 29 04/01/2017 23 AST (SGOT) (U/L) Date Value 09/19/2021 21 02/05/2020 30 ALT (U/L) Date Value 10/01/2024 16 08/20/2024 11 08/19/2024 12 02/04/2021 17 02/03/2021 19 04/01/2017 14 ALT (SGPT) (U/L) Date Value 09/19/2021 15 02/05/2020 22 Bilirubin, Total (mg/dL) Date Value 10/01/2024 0.2 08/20/2024 0.2 08/19/2024 0.3 02/04/2021 0.3 02/03/2021 0.3 04/01/2017 0.5 Alkaline Phosphatase (U/L) Date Value 10/01/2024 217 08/20/2024 137 08/19/2024 161 02/04/2021 139 02/03/2021 156 04/01/2017 135 Alk Phos Total (U/L) Date Value 09/19/2021 132 02/05/2020 131 Sed Rate, Westergren (mm/hr) Date Value 08/18/2024 97 07/26/2024 102 Sepsis Lactate (mmol/L) Date Value 08/17/2024 1.5 07/26/2024 0.7 Vancomycin (ug/mL) Date Value 08/19/2024 24.6 07/31/2024 23.4 07/31/2024 30.7 07/28/2024 25.5 Microbiology data: reviewed Imaging data: reviewed Franky Barnes MD Pager: Nursing Documentation Pertinent Medical History: DM2, HTN, venous insufficiency, & heart failure Wound Etiology according to patient: wounds started February 2024 Pt had right great toe amputation June 18, 2023 Patient arrived via: Ambulatory with [facility] Care Company/Nursing Facility: [facility] Consent captured for debridement per Hu Pickard DPM and good until April 2025 Anticoagulant Therapy: ASA 81mg ACTIVE CARE PER PROVIDER: Hu Pickard DPM Application Dates: Grafts are complete 01/07/2023 Apligraf 01/15/2023 Apligraf 01/21/2023 Apligraf 01/27/2023 Apligraf 02/04/2023 Apligraf Wounds 1-38 previously closed 40 closed 44-45 closed 47-48 Closed 50 Closed 51 closed WOUND # 49 LOCATION: Left anterior lower leg - (new 11/10/24) 11/17/24 closed, but fragile Closed 12/08/2024 WOUND #52 LOCATION: Right anterior lower leg (NEW 11/17/24) closed 11/24/24, 12/01/24 re-opened Closed 12/08/24 WOUND #53 LOCATION: Right lateral lower leg (NEW 11/17/24) closed 11/24/24, 12/01/24 re-opened Closed 12/08/24 ___ WOUND ASSESSMENT: Refer to Provider's Wound Assessment Note VASCULAR ASSESSMENT BY PROVIDER: See provider wound assessment note CHF History: Yes as of February 2022, Dr. Sadler in Cardiology EDEMA: Right Foot: generalized brawny Right ankle: generalized brawny Right Calf: 1+ Left Foot: generalized brawny Left ankle: generalized brawny Left Calf: 1+ MEASUREMENTS: in CM Right Calf: 34.0 Right Ankle: 23.2 Left Calf: 32.5 Left Ankle: 23.3 Length: 43.0 not measured at visit WOUND PHOTOGRAPHY: YES x 3 (date taken 12/19/24) DEBRIDEMENT PROCEDURE BY PROVIDER: Anesthetic Used: N/A Other procedure: N/A Specimen collected: N/A WOUND TREATMENT PER MD ORDER: Wounds cleansed by mechanical debridement to allow provider to visualize wound base\ *Silicone Allergy LEFT LOWER LEG WOUNDS Graft placed in the OR 12/15/24 with Hu Pickard DPM to Left and Right Achilles and stapled in place WOUND # 41 - LOCATION: Left Medial Ankle (NEW 07/26/24 (not measured today 12/19/24) L: 0.5 cm x W: 0.7 cm x D: 0.1 cm WOUND # 43 - LOCATION: Left Dorsal / Lateral Foot -(NEW 07/26/24 (not measured today 12/19/24) L: 0.1 cm x W: 0.1 cm x D: 0.1 cm WOUND # 46 LOCATION: Left Lateral Lower Leg (NEW 10/12/24)) (not measured today 12/19/24) L: 0.7 cm x W: 0.5 cm x D: 0.1 cm WOUND # 42 - LOCATION: Left Achilles (NEW 07/26/24) (not measured today 12/19/24) L: 9.4 cm x W: 2.7 cm x D: 1.3 cm - Tendon exposed Cleansed with: saline Applied to naya-wound skin: Applied to wound bed: adaptic Covered and secured with: abd, kerlix, tape Secure with olegario wrap from behind the toes to 1 below the knee Lose to only secure the dressings - - - - - - - - - - - - - - - - - - - - - - - - - - - - - - - - - - - - - - - - - - - - - - - - - - - - - - - - - - - - - - - - - - - - - - - - RIGHT LOWER LEG WOUNDS WOUND # 39 LOCATION: Right Achilles Cluster (Hold Vac 11/27/2024 on right side only) L: 11.4 cm x W: 3.2 cm x D: 1.4 cm - Tendon exposed (not measured today 12/19/24) Tunnel: in cm 0600: 4.9 to bone Undermining: in cm Cleansed with: saline Applied to naya-wound skin: Applied to wound bed: adaptic Covered and secured with: abd, kerlix, tape Secure with olegario wrap from behind the toes to 1 below the knee Lose to only secure the dressings - - - - - - - - - - - - - - - - - - - - - - - - - - - - - - - - - - - - - - - - - - - - - - - - - - - - - - - - - - - - - - - - - - - - - - - - COMPRESSION: NO COMPRESSION. Gentle olegario wraps only to secure dressings SPECIAL NEEDS: Coordination of care - AVS faxed to [facility] [place] Emotional support N/A OR set-up N/A Yarn Examiner N/A Incontinence needs N/A DME company: ordered 03/01/24 [place] wraps, Supplies ordered 06/07/2024 x 30 days with 2 refills, PICC line with IV antibiotics ordered today 12/19/24 DISCHARGED in stable condition to: back to [facility] with transport PLAN/ORDERS: Follow-up in the Wound Center with Dr Pickard once a week: 12/21/24 Dr. Barnes in 6 weeks -Plann for PICC line placement with 2 IV antibiotics -You were sent an oral antibiotic to start taking as soon as possible. Once IV antibiotics are started you may stop the oral antibiotics -Continue HBOT OTHER EDUCATION: Education performed regarding lymphedema/edema: n/a Elevation of extremity above the heart for 30 minutes three times daily and as needed Exercise such as writing the ABC's with your toes in the air, walking and/or calf pumps Wearing compression as ordered by provider Diet controlling of sodium as instructed by provider Use of medication to help control edema. UNIVERSAL PROTOCOL / SAFETY CHECKLIST-N/A Franky Barnes MD/FM/AA Current HBOT - Dr. Benitez in to evaluate documented in this encounter [facility] 12-19-2024 Instructions Kym Napoles RN - 12/19/2024 2:05 PM EDT WOUND CARE INSTRUCTIONS- Shade Brambila Wound location: Bilateral Lower Legs [facility] HOME: FAX: [phone] Wound Vac to be applied soon after today's visit 12/19/24 to Right Achilles wound. Wound care listed below for Left leg wounds. All changes to wound vac settings and wound care must be cleared through Dr. Pickard prior to any changes being made. The pressure must remain at 175 due to the amount of tracking that must be done for the wounds Clear vac drape to all skin where foam will be placed. It is imperative to have all skin covered with clear drape where the black foam will be placed as there are new wounds where the black foam was placed directly on the patient's skin PLEASE ATTEMPT TO FEED THE PATIENT A DIABETIC DIET Diabetic Premiere Protein Shakes 2 x daily between meals May ambulate with Assistance Physical Therapy to assess what level of aid the patient needs to ambulate with assistance Patient may bear weight Right Achilles/heel alternate dressing (should wound vac fail): Rinse wound with saline. Pat dry with gauze. -Apply a piece of Adaptic (mesh material) cut to fit over the area of the wound - Place ABD pad over achilles and Heel cup ABD on heel. - Wrap with Kerlix and secure with tape. - Change dressing daily and as needed to maintain a clean dry dressing. - Secure with olegario wrap from behind the toes to 1 below the knee - OLEGARIO WRAPS ARE NOT FOR COMPRESSION - THEY ARE ONLY TO HELP KEEP DRESSINGS IN PLACE Right Achilles: WOUND VAC: Please apply a wound vac dressing on right achilles wound 12/19/24: IAIN Recommended Settings: 175 mmHg, continuous Intensity High Continuous suction Wound Vac: Skin prep to naya-wound Duoderm to naya-wound of all wounds Eaken seal around the wound edge of each wound Apply Adaptic to the entire wound base all wounds Clear vac drape to all skin where foam will be placed and for bridged areas: It is imperative to have all skin covered with clear drape where the black foam will be placed. Black foam to wound bed - be sure to not over pack wounds with foam Track pad to be placed avoiding all bony prominence Pad and protect skin from tubing at all times using ABD pads between patient's skin and VAC tubing Change dressing 3 x weekly and as needed to keep clean and dry Apply a loose olegario wrap to secure dressings Left Achilles Left medial Ankle, Left Lateral Dorsal Foot & Left Lateral Lower Leg: Dressing is to remain intact until follow up with Hu Pickard DPM 12/21/24 -If dressing soiled, outer dressing including adaptic can be changed and wound rinsed with saline. Leave stapled graft below adaptic layer intact until 12/21/24 --- Rinse wound with saline. Pat dry with gauze. - Cover graft layer with: adaptic, 4x4's, abd pads - Secure dressing with: conform or kerlix wrap. tape - Change outer dressing daily if needed to keep clean and dry - Secure with olegario wrap from behind the toes to 1 below the knee - OLEGARIO WRAPS ARE NOT FOR COMPRESSION - THEY ARE ONLY TO HELP KEEP DRESSINGS IN PLACE - Avoid sitting with legs in a dependent position or standing for long periods of time. - Attempt to lay flat and elevate your legs above the level of your heart 2-3 times daily, for 30 minutes at a time. - Be sure to continue walking and/or calf pumps and exercises to mimic writing the alphabet with your foot, as instructed Foot care Many people with diabetes lose the feeling in their feet (neuropathy). Therefore, they might not know they have an injury that can lead to serious problems, such as foot removal (amputation). By taking care of your feet, most serious problems can be prevented. If you have problems checking your own feet, have a family member or friend help you. Easy steps to protect your feet: Check your feet every day for: dry or cracked skin, cuts, open sores, blisters, redness, swelling, corns, calluses, or toenail problems. Use a mirror if necessary. Report any problems to your doctor. Keep your feet clean and dry, especially between the toes. If your feet are dry or cracked use a moisturizing lotion at least daily but never between the toes. See your judicial clerk every three months for foot and nail care. Don't go barefoot. Wear shoes or slippers at all times. Wear comfortable shoes that fit well. Check inside your shoes for foreign objects or rough spots before putting on shoes. Always wear socks. Avoid using anything hot, such as heating pads, hot water bottles, hot tubs, or bath water. Check the temperature of bath water with your elbow not your foot. Take your shoes and socks off at every office visit to remind your doctor to check your feet. Also, never tape a dressing directly to the skin on your legs or feet. Instead, use a self-adherent bandage to avoid injuring the skin on your lower extremities If calluses form they can cause wound ulcers to appear under the callus, must be seen by [employer] every three months to prevent. Maintain controlled blood sugar, if blood sugar is consistently above 200 this can delay wound healing and aggravate neuropathy. To give your wound the best chance to heal: - Eat three balanced meals daily focusing on the protein - Control your blood sugar. Keep blood sugar less than 200 - Complete your wound care instructions as ordered - Vitamin C 500 mg twice daily - Multiple Vitamin Daily - Drink a protein shake daily - Premiere Clear or Glucerna for Diabetic patients, Nepro for renal patients and premiere for non-renal and non-diabetic patients Report any of the following signs and symptoms of infection to the Wound Center at [phone] or go to the Emergency Department: Fever or chills Increased drainage Green or yellow drainage Foul odor Increased pain Hardness around the wound Redness, warmth or swelling of the surrounding tissue Color change to the wound Evenings / Weekends / Holidays If you call the wound center at the phone number provided above, please leave a detailed message that includes your full name, birthday, and phone number. We are seeing patients during the day, so we will return your call within a 24-48 hr period in the order your call was received. There is not an on-call provider assigned to the wound center. If you have an emergency that needs to be addressed, please go to an Urgent Care or Emergency Room. Thank you for your cooperation and understanding. If you are feeling ill, please call to reschedule your appointment. If you believe your illness to be wound related, call and leave a message using the directions above describing your symptoms. If you cannot wait 24-48 hrs for a callback, please get evaluated in the nearest emergency department. PLAN/ORDERS: Follow-up in the Wound Center with Dr Pickard once a week: 12/21/24 Dr. Barnes in 6 weeks -Plann for PICC line placement with 2 IV antibiotics -You were sent an oral antibiotic to start taking as soon as possible. Once IV antibiotics are started you may stop the oral antibiotics -Continue HBOT Continue aggressive nutritional support to assist wound healing, focusing on increasing protein intake, keeping blood sugars stable/controlled Blood sugars must be kept below 150 for wound healing Patient is a High Fall Risk due - UP WITH ASSIST ONLY HAVE PATIENT ATTEMPT CHAIR YOGA EXERCISES - LIMITED ANKLE MOVEMENT WEIGHT BEARING TOLERATED Please give patient premiere diabetic protein shakes 2 x daily between meals. Franky Barnes MD/FM/AA documented in this encounter [facility] 12-19-2024 Note [facility] 12-18-2024 Telephone encounter Note Received VM from [facility] where patient is residing. Janett called asking questions about the wound care on the right foot. This RN spoke to Dr. Pickard who provided the dressing instructions for this nurse to relay to [facility]. White foam is to be used in the 0600 tunneling. The protection under the foam is duoderm on the distal area of the wound and adaptic over the intact clint. Then the wound vac is applied. The left foot dressing is to remain in tact until her podiatry appointment on . Called DarlineAgnes had left for the day. Was able to be directed to her VM by the welding machine operator electro gas. Left VM relaying the above directions. And instructed Janett to call the wound center if she has any questions in the morning. [facility] 12-18-2024 Miscellaneous Notes Received VM from [facility] where patient is residing. Janett called asking questions about the wound care on the right foot. This RN spoke to Dr. Pickard who provided the dressing instructions for this nurse to relay to [facility]. White foam is to be used in the 0600 tunneling. The protection under the foam is duoderm on the distal area of the wound and adaptic over the intact clint. Then the wound vac is applied. The left foot dressing is to remain in tact until her podiatry appointment on . Called Armando and Janett had left for the day. Was able to be directed to her VM by the welding machine operator electro gas. Left VM relaying the above directions. And instructed Janett to call the wound center if she has any questions in the morning. documented in this encounter [facility] 12-15-2024 Note [facility] 12-15-2024 Telephone encounter Note Patient acceptable risk to proceed with left lower extremity debridement from a cardiac standpoint. Shanel Newell APRN.DEBORAH [facility] Work Phone: 12-15-2024 Miscellaneous Notes Patient acceptable risk to proceed with left lower extremity debridement from a cardiac standpoint. Shanel Newell APRN.DEBORAH JaviJohanne gardner saw this mutual patient in [facility] on 11/30/2024. Shade Brambila [id number] is scheduled for LLE Subcutaneous Debridement with Dr. Pickard on 12/15/2024. Is this patient optimized from a cardiac standpoint? ECHO LIMITED (12/14/2024 12:12 PM) Thank you, Marylou Mcclellan APRN.HEEL CURVER documented in this encounter [facility] 12-15-2024 Telephone encounter Note Johanne Johnson saw this mutual patient in [facility] on 11/30/2024. Shade Brambila [id number] is scheduled for LLE Subcutaneous Debridement with Dr. Pickard on 12/15/2024. Is this patient optimized from a cardiac standpoint? ECHO LIMITED (12/14/2024 12:12 PM) Thank you, Marylou Mcclellan APRN.HEEL CURVER [facility] 12-14-2024 History of Presen t illness Narrative Images from the original note were not included. [facility] [place] [facility] OUTPATIENT VISIT DATE December 14, 2024 OUTPATIENT VISIT TYPE ESTABLISHED PRIMARY CARE PHYSICIAN: No primary care provider on file. CHIEF COMPLAINT: Patient presents with: Breathing Problem Leg Edema HISTORY OF PRESENT ILLNESS: Shade Brambila is a 64 year old female who presents today for a follow-up visit in the Heart Failure Clinic. The patient was last seen in office 07/07. The following changes were made at that time: none. Patient has had 2 hospitalizations and/or emergency room encounters in the last 12 months. Most recent ER visit was from 10/01 for management of bilateral food wounds. Presented to ER from [facility] for wound check. Had wound vac placed to left heel which was removed due to excessive bleeding. Wound was redressed. XR was negative for acute changes. Patient was discharged home in stable condition. Last hospital admission 08/17-08/24 for bilateral lower wounds. She presented from [facility]. She had been seen by Vascular who did not feel intervention was needed however suggest hyperbaric therapy. She was treated with intravenous antibiotics. At this time, she was taken off metolazone and potassium. Echo performed during stay showed reduction in ejection fraction along with new wall motion abnormalities. Was seen by cardiology on 11/17. Left heart cath ordered due to new wall motion abnormalities seen on echo along with concern for coronary artery disease given multiple risk factors. Considered decrease in enalapril pending blood pressure values. Of note, blood pressure log received in Cardiology. Results were stable and no changes made to medications at that time. Today, the patient reports feeling well. Presents to appt with her POA. Patient resides in nursing facility, [facility]. She was weighed yesterday at facility with weight of 196 lbs. Doing therapy three times a week. She is able to get up with assistance. Has been using her walker as well. Unable to lay flat due to back pain. Reports midsternal chest discomfort at times. Unable to ascertain if this occurs with rest or activity. Episodes last a couple of minutes and occur a couple of times a month. Denies fever, chills. Reports dizziness intermittently. This occurs when standing for long periods of time or when she is doing exercises. Leg swelling is baseline for patient. Wound vac is in place to left foot. She is scheduled for wound debridement tomorrow. Echo performed today to reassess LV function. Does not feel she is retaining fluid. Gets weighed Wednesday, Wednesday and Wednesday at the skilled nursing. Weights have been stable with in 1-2 lbs per the patient. Denies having to take additional lasix. Eating well. Trying to monitor sodium intake however, the seafood service team member a the nursing facility does not offer a low sodium diet. IMPRESSION: NYHA Functional Class: II Stage: C heart failure Shade Brambila is a 64 year-old female who presents to the [facility] Failure [facility] for follow up. Appears euvolemic on examination. No changes to medications at this time. For increase in weight, may take additional 20 mg lasix at least 6 hours from the morning dose. Continue to try and monitor sodium as best as possible although this is limited based on facility not offering a low sodium diet. Continue with PT and encouraged daily exercise as tolerated. Call office with any questions or concerns. Reviewed plan of care with patient. All questions answered at this time. PLAN AND RECOMMENDATIONS: 1. Chronic heart failure with preserved ejection fraction (HCC) - ICD9: 428.9, ICD10: I50.32 (primary diagnosis) - daily weights, call office if weight increases 3-4 lbs in a 1-4 day period -2 gm low sodium diet -activity as tolerated, rest breaks as needed -unable to tolerate spironolactone due to hyperkalemia -lasix 40 mg daily x 3 days -30 mg IV lasix given in office today -call office on Wednesday to report weight will adjust lasix dose then -25 mg jardiance once a day -repeat echo in future -bariatric scale given to patient during previous visit -follow up in HF Clinic 05/29 or sooner if needed 2. Primary hypertension - ICD9: 401.9, ICD10: I10 -BP suboptimal during visit 132/59 mmHg -encourage DASH/low sodium diet -encourage exercise with rest breaks as needed -goal BP <130/80 mmHg -continue home BP monitoring 3. Mixed hyperlipidemia - ICD9: 272.2, ICD10: E78.2 -continue atorvastatin -last lipid panel 08/15/2022; LDL 117 HDL 55, total 184 Follow up appointment with Shanel Newell 02/21 PAST MEDICAL HISTORY Diagnosis Date Charcot left foot due to diabetes mellitus (HCC) 05/2013 subsequent to left foot fracture Chronic ulcer of great toe of right foot (HCC) 06/14/2023 Congestive heart failure (HCC) Depression Diabetes (HCC) Diabetic ulcer of posterior right heel (HCC) 02/06/2020 Endometrial cancer (HCC) Foot fracture, left 05/2013 Charcot neuroarthropathy HTN (hypertension) Obesity NELLY (obstructive sleep apnea) Renal disorder on vasotec to protect kidneys rt diabetes since 1998. Vitamin D deficiency 01/05/2017 PAST SURGICAL HISTORY Procedure Laterality Date AMPUTATION TOE,MT-P JT Right 07/2022 first two twos amuptated AMPUTATION TOE,MT-P JT Right 10/2023 third, fourth and fifth toes DILATION & CURETTAGE DX&/THER NONOBSTETRIC x3 EXTENSIVE HAND SURGERY Dupuytren contracture PAST SURGICAL HISTORY OF 07/2023 half of big toe tooken off TONSILLECTOMY HX TOTAL ABDOM HYSTERECTOMY 08/2023 with BSO Social History Tobacco Use Smoking status: Never Passive exposure: Never Smokeless tobacco: Never Vaping Use Vaping status: Never Used Substance Use Topics Alcohol use: Not Currently Comment: Occ - 3 glasses of wine a year Drug use: No Family History Problem Relation Age of Onset Hypertension Mother other (polycystic kidney disease) Mother Heart Father CHF Hypertension Father Diabetes Brother other (testicular cancer) Brother Coronary Artery Disease Brother MD and at age 45 Cancer Paternal Aunt breast CA other (CHF) Paternal Grandmother Anesthesia Problems No Family History ALLERGIES Allergen Reactions Amoxicillin Unknown Patient does not remember reaction Silicone Rash, Itching Dressing with silicone border caused inflammation where the bandage was placed Codeine Intolerance Patient states Makes her Hyper Morphine Intolerance Difficulty waking up / groggy CURRENT MEDICATIONS: Current Outpatient Medications Medication Sig Dispense Refill sulfamethoxazole-trimethoprim (BACTRIM DS) 800-160 mg per tablet Take 1 tablet by mouth two times a day for 7 days. 14 tablet 0 polyethylene glycol 3350 (MIRALAX) 17 gram packet Take 17 g by mouth once daily. Dissolve dose in 4 - 8 ounces of liquid and take as directed. Blood-Glucose Sensor (DEXCOM G7 SENSOR) edita For continuous glucose monitoring 9 Each 3 Blood-Glucose Meter,Continuous (DEXCOM G7 CLAIMS ADJUSTOR) misc For continuous glucose monitoring. 1 Each 0 GLUCAGON EMERGENCY KIT, HUMAN, INJECTION by INJECTION(UNSPECIFIED PARENTERAL ROUTES) route. sodium phosphate,mono-dibasic (ENEMA RECTAL) by RECTAL route as needed (constipation). may be given daily, if needed (Patient not taking: Reported on 11/30/2024) bisacodyl (DULCOLAX) 10 mg supp 10 mg by RECTAL route once daily as needed for constipation. senna-docusate (SENEXON-S) 8.6-50 mg per tablet Take 1 tablet by mouth as needed for constipation. (Patient not taking: Reported on 11/30/2024) naloxone (NARCAN) 1 mg/mL for intranasal administration 1 mg by INTRANASAL route as needed for known or suspected opioid overdose. Once for opioid overdose may repeat every 2-3 min insulin lispro 100 unit/mL injection Sliding scale- Blood sugar 111-150 Give 0 units 151-200 Give 1 unit 201-250 Give 2 units 251-300 Give 3 units 301-350 Give 4 units 351-400 Give 5 units Greater than 400 Give 5 units and Notify Provider fluticasone (FLONASE) 50 mcg/actuation nasal spray Use 2 Sprays in each nostril once daily. (Patient not taking: Reported on 11/30/2024) ondansetron (ZOFRAN) 4 mg tablet Take 4 mg by mouth every 8 hours as needed for nausea/vomiting. traMADol (ULTRAM) 50 mg tablet Take 50 mg by mouth every 6 hours as needed for pain. acetaminophen (TYLENOL) 325 mg tablet Take 2 tablets by mouth every 6 hours as needed for fever (specify temp.) or pain (temp >100.1F). senna (SENOKOT) 8.6 mg tab Take 1 tablet by mouth two times a day. (Patient not taking: Reported on 11/30/2024) empagliflozin (JARDIANCE) 25 mg tablet TAKE 1 TABLET BY MOUTH EVERY DAY WITH BREAKFAST 90 tablet 1 ACCU-CHEK JOSE PLUS TEST STRP test strip USE TO TEST BLOOD GLUCOSE 3 TIMES DAILY 300 Strip 1 enalapril (VASOTEC) 20 mg tablet Take 0.5 tablets by mouth two times a day. atorvastatin (LIPITOR) 80 mg tablet take 1 tablet by mouth every day 90 tablet 3 furosemide (LASIX) 20 mg tablet Take 20 mg by mouth once daily. pt stated that she is working with heart failure RN BABY on lasix ascorbic acid (VITAMIN C ORAL) Take 500 mg by mouth two times a day. aspirin, enteric coated (ASPIRIN, ENTERIC COATED) 81 mg EC tablet Take 81 mg by mouth once daily. cyanocobalamin, vitamin B-12, 1,000 mcg/mL kit 1,000 mcg by INJECTION(UNSPECIFIED PARENTERAL ROUTES) route once every month. Blood Pressure Monitor Please monitor blood pressure 1-2 hours after taking morning medications. 1 Kit 0 FLUoxetine (PROZAC) 40 mg capsule Take by mouth q 24 HR. lancets (ONE TOUCH DELICA) 33 gauge USE TO BLOOD GLUCOSE 3 TIMES DAILY. INSULIN DEPENDENT E11.3299, E11.65, Z79.4 300 Each 3 insulin needles, DISPOSABLE, (BD INSULIN PEN NEEDLE UF) 31 gauge x 5/16 FOUR DAILY FOR INSULIN INJECTIONS. 400 Each 1 Blood-Glucose Meter [facility] Use to test blood glucose 3 times daily. Insulin Dependent E11.3299, E11.65, Z79.4 1 Each 0 Cholecalciferol, Vitamin D3, 50 mcg (2,000 unit) cap Take 1 tablet by mouth once daily. No current facility-administered medications for this visit. REVIEW OF SYSTEMS: GENERAL: Negative for: Weight loss or gain, Fever or Chills, Weakness and Sleep difficulties. HEENT: Positive for:Glasses NECK: Negative for: Swelling, Pain, Stiffness RESPIRATORY: Negative for: Cough, Blood in Sputum, Shortness of breath, Wheezing, Apnea GASTROINTESTINAL: Negative for: Trouble swallowing, Heartburn, Change in bowel habits, Blood in stool, Dark black stools MUSCULOSKELETAL: Positive for: Muscle or joint pain NEUROLOGIC/PSYCHIATRIC: Negative for: Weakness, Paralysis, Numbness, Tingling, Tremor, Nervousness or anxiety, Depressed mood, Memory loss SKIN: Negative for: Rash, Itching HEMATOLOGICAL/LYMPHATIC: Positive for: Easy bruising and Easy bleeding ENDOCRINE: Negative for: Heat or Cold Intolerance, Excessive Sweating, Frequent Urination, Frequent Thirst PHYSICAL EXAMINATION: BP 132/59 Pulse 87 Wt 88.9 kg (196 lb) SpO2 98% BMI 29.80 kg/m General: Normal exam, no distress, overweight, in wheelchair, accompanied by family Skin: No clubbing, no cyanosis. Eyes: Extra ocular movements intact Neck: Neck veins are not distended Lungs: Chest clear to auscultation Heart: Rhythm: regular rate and rhythm, Rate: normal, no murmur Abdomen: Normal Extremities: edema: 1+ right> left; legs wrapped BL with OLEGARIO wraps Peripheral Pulses: Normal CARDIOVASCULAR MEDICINE TESTING: Latest Reference Range & Units 12/05/24 09:32 Sodium 136 - 144 mmol/L 136 Potassium 3.7 - 5.1 mmol/L 4.2 Chloride 98 - 107 mmol/L 97 (L) CO2 22 - 30 mmol/L 28 BUN 7 - 21 mg/dL 26 (H) Creatinine 0.58 - 0.96 mg/dL 0.79 Glucose 74 - 99 mg/dL 143 (H) Calcium 8.5 - 10.2 mg/dL 9.8 Anion Gap 8 - 15 mmol/L 11 eGFR >=60 mL/min/1.73m 84 (L): Data is abnormally low (H): Data is abnormally high ECHO 07/28/2024: CONCLUSIONS: - Exam indication: Heart failure - The left ventricle is normal in size. Left ventricular systolic function is mildly decreased. EF = 50 5% (visual est.). Definity contrast used for endocardial border detection. Grade II left ventricular diastolic dysfunction. - The right ventricle is mildly dilated. Right ventricular systolic function is normal. - The right atrial cavity is moderately dilated. - There is mild (1+) mitral valve regurgitation. - Mild to moderate (1-2+) tricuspid valve regurgitation. - Estimated right ventricular systolic pressure is 56 mmHg consistent with moderate pulmonary hypertension. Estimated right atrial pressure is 15 mmHg based on IVC assessment. - Wall motion abnormalities as above. - Exam was compared with the prior OUTSIDE echocardiographic exam performed on 02/19/22. Compared to prior report, left ventricular function has declined with new wall motion abnormalities and estimated RVSP is higher. I have personally reviewed the Laboratory Testing and Echocardiogram. COUNSELING: We discussed the following non-pharmacological measures during this visit: Smoking and alcohol abstinence/cessation, if applicable Dietary and medication compliance Monitoring daily weights and blood pressures Exercise regimen When to call our office Heart Failure Education Booklet: Previously given. Discussed red flags and when to call MD/RN BABY or go to ED. Medications reconciled at end of visit: yes I spent 30 minutes in this visit, with more than 50% of the time devoted to patient counseling. SIGNATURE: Ayan Wallis APRN.CNP PATIENT NAME: Shade Brambila DATE: December 14, 2024 TIME: 1300 documented in this encounter [facility] 12-14-2024 Note [facility] 12-14-2024 Instructions Ayan Wallis APRN.CNP - 12/14/2024 12:59 PM EDT For increase in weight of 3-5 lbs, please take additional 20 mg lasix at least 6 hours from morning dose. As you are scheduled for surgery tomorrow, this could affect your weight over the weekend. If your weight is up to 200 lbs on Wednesday, please call office OR have nursing facility administer additional 20 mg lasix for 2 days. 2. Weigh yourself daily. Call me if your weight increases by 3-4 pounds in a 1-4 day period of time. 3. Continue low salt (2000 mg per day) diet. 4. Be as active as you are able. If you get tired, just stop and rest for a while. 5. Come back and see me on 05/29 at 1100. If you have any question or concern, you can call me at [phone]. documented in this encounter [facility] 12-11-2024 Note [facility] 12-11-2024 History of Presen t illness Narrative Date of Visit: 12/08/2024 Problem list reviewed. CHIEF COMPLAINT: check B/L lower leg wounds DM II A1c 7.4 (10/25/24) DLS 02/08/24 ADM 08/17/24 HISTORY OF PRESENT ILLNESS: Patient presents for BL leg wound check. She believes the right leg wound is doing better. She finished the antibiotics and is wondering if she needs more. She relates she couldn't go to OR today as she didn't get clearance by PAT. She relates she wouldn't have been off the jardiance long enough and needed cardiac clearance. She is going for cardiac clearance . She states pain is a 0/10. She relates she can't feel feet well and gets numbness. Hx She was admitted 08/17/24 and was DC to [facility] where she is still at. She was DC on cipro and flagyl which she finished taking. She relates her insurance wouldn't cover it so she is self paying and planning on going to the nonskilled assistive living side soon. She is at [facility]. Patient is taking protein drinks. Referred by aircraft hydraulic equipment mechanic, Dr. Dasilva. Patient is DM and sees aircraft hydraulic equipment mechanic Denies N/V/F/C/D/SOB/CP/LP. PCN allergy Hx RT 3rd perc flexor tenotomy (07/26/23) HX R great toe amputation 06/18/23, excision tibial and fibular sesamoid, bone biopsy first met head. Right 2nd toe amputation and hallux I&D 10/28/22. Hx s/p RT toe amp 3,4,5 (DOS 10/14/23) DME DM inserts 08/24/23 rx circade wraps 08/14/22 CURRENT MEDICATIONS: oxyCODONE HCl Oral Tablet 5 MG (07/05/2024) Take 1 tablet every 12 hours as needed for 7 day(s) Percocet Oral Tablet 5-325 MG (07/20/2024) Take 1 tablet every 12 hours as needed for 7 day(s) oxyCODONE-Acetaminophen Oral Tablet 5-325 MG (10/28/2022) Ketorolac Tromethamine Ophthalmic Solution 0.5 % (04/26/2023) Accu-Chek Jose Plus In Vitro Strip (09/23/2022) Atorvastatin Calcium Oral Tablet 80 MG (06/13/2023) miSOPROStol Oral Tablet 200 MCG (06/15/2023) TAKE 2 TABLETS BY MOUTH THE DAY PRIOR TO PROCEDURE AT BEDTIME WITH FOOD Fluticasone Propionate Nasal Suspension 50 MCG/ACT (12/15/2022) USE 2 SPRAYS IN EACH NOSTRIL DAILY X1 WEEK,THEN 1 SPRAY IN EACH NOSTRIL DAILY THEREAFTER NEEDED Nitrofurantoin Monohyd Macro Oral Capsule 100 MG (02/08/2023) Fluconazole Oral Tablet 200 MG (03/20/2024) TAKE 1 TABLET EVERY DAY FOR 21 DAYS Bactrim DS Oral Tablet 800-160 MG (06/24/2023) Take 1 tablet twice a day for 10 day(s) Ofloxacin Ophthalmic Solution 0.3 % (03/30/2023) diazePAM Oral Tablet 10 MG (02/19/2022) TAKE 1 TABLET 60 MIN BEFORE TEST Atorvastatin Calcium Oral Tablet 40 MG (11/18/2022) FLUoxetine HCl Oral Capsule 40 MG (01/26/2022) Enalapril Maleate Oral Tablet 10 MG (01/26/2022) TAKE 1 TABLET BY MOUTH EVERY DAY Erythromycin Ophthalmic Ointment 5 MG/GM (02/09/2022) APPLY 1 A SMALL AMOUNT LEFT EYE 4 TIMES A DAY Atorvastatin Calcium Oral Tablet 20 MG (01/26/2022) TAKE 1 TABLET BY MOUTH EVERY DAY Spironolactone Oral Tablet 25 MG (06/15/2023) TAKE 0.5 TABLETS BY MOUTH ONCE DAILY. Jardiance Oral Tablet 25 MG (06/14/2023) TAKE 1 TABLET BY MOUTH EVERY DAY WITH BREAKFAST Furosemide Oral Tablet 40 MG (11/18/2022) HumuLIN R U-500 KwikPen Subcutaneous Solution Pen-injector 500 UNIT/ML (06/14/2023) INJECT 40 UNITS SUBCUTANEOUSLY AT BREAKFAST, 100 UNITS AT LUNCH, 80 UNITS AT SUPPER. metFORMIN HCl Oral Tablet 1000 MG (11/23/2022) TAKE 1 TABLET BY MOUTH TWICE DAILY WITH MEALS. E11.3599 ALLERGIES: Amoxicillin Unknown Band-[place] Surg Dressing Other Bandaging Tape Other PAST MEDICAL HISTORY: Podiatry History remarkable for Foot Numbness, Fungal Nails, Leg or Foot Ulcers. The patient has a past medical history of Arthritis, Depression, DM-Medication Dependent, Poor Circulation. Neuropathy High Cholesterol SURGICAL HISTORY: Hand Tonsils HOSPITALIZATIONS: None Noted SOCIAL HISTORY: Smoking Status: Never smoker; Last Reviewed: 12/08/2023 Alcohol use: social drinker No drug use Social History Reviewed (01/16/2021 11:20:18 AM EST) FAMILY HISTORY: There is a family history of Denial of any knowledge of significant family history. Denial of any knowledge of significant family history Family History Reviewed (01/16/2021 11:20:19 AM EST) REVIEW OF SYSTEMS: Psychologic: Admits to No psych symptoms. Review of systems otherwise negative PHYSICAL EXAMINATION: Vital Signs: Weight 235 lbs; Height 5 ft 8 in; BMI 35.7 12/06/2024 11:18 AM (EST) Temperature 98.6 F; Pulse Rate 100 bpm; Blood Pressure 120 / 80 mm/Hg Vascular Exam: DP pulses of the RIGHT and LEFT foot are +1/4 PT pulses of the RIGHT and LEFT foot are +1/4 CFT is within normal limits, less than 3s to all digits, both feet. Skin temperature from proximal to distal is warm to warm, both feet. BL LE edema Dermatologic Exam: LEFT medial ankle wound predebridement measures 0.4x0.6x0.1cm and post debridement measures 0.5x0.7x0.1cm with 70:30 granular fibrotic base, minimal surrounding slough, no surrounding edema and erythema, no purulence expressed, no probe to bone, no malodor, moderate serosanginous drainage. Into level of SUBCUTANEOUS tissue. LEFT lateral lower leg wound predebridement measures 0.6x0.4x0.1cm and post debridement measures 0.7x0.5x0.1cm with 70:30 granular fibrotic base, surrounding slough, no erythema, no purulence, no probe to bone, no malodor, moderate serosanguinous drainage. Into level of SUBCUTANEOUS TISSUE, partial thickness LEFT posterior Achilles lower leg wound predebridement measures 9.2x2.5x1.0cm and post debridement measures 9.4x2.7x1.3cm with 85:15 granular fibrotic base, surrounding slough, no surrounding edema and erythema, no purulence expressed, no probe to bone-exposed achilles tendon with complete RUPTURE, no malodor, moderate serosanginous drainage. Into level of TENDON. LEFT dorsal lateral foot wound predebridement covered by slough and post debridement measures 0.1x0.1x0.1cm with 70:30 granular fibrotic base, no surrounding callus, no surrounding edema and erythema, no purulence expressed, no probe to bone, no malodor, moderate serosanginous drainage. Into level of SUBCTUANTEOUS tissue LEFT anterior lower leg wound healed RIGHT posterior Achilles lower leg cluster wound predebridement measures [id number] and post debridement measures 11.4x3.2x1.4cm with tunnelling at 6 o'clock for 4.9cm and undermining at 7 o'clock at 2cm, 60:40 granular fibrotic base, wound cluster is communicating with each other. surrounding slough, no surrounding edema and IMPROVED erythema, no purulence expressed, YES probe to bone-Exposed achilles tendon posteriorly with fraying and complete RUPTURE and tracking to calcaneus, MILD malodor, moderate serosanginous drainage. Into level of BONE. RIGHT lateral lower leg wound and RIGHT anterior lower leg wound healed LEFT foot 2nd toe tuft hyperkeratotic tissue Nails 2-5 left are thickened, elongated and discolored with subungual debris. The nails are greater than .3mm in thickness. The discoloration is yellowish in color. Innerspaces 1-4 LT are clean dry and intact. Skin texture and turgor are decreased. absent or decreased hair growth bilateral. chronic lower leg red hyperpigmentation Neurologic Exam: Comments/Other Findings: Vibratory sensations decreased LT, Protective sensations absent LT tested with 5.07 monofilament, and light, sharp, and temperature sensations intact LT. Normal Babinski test noted bl foot after testing Orthopedic Exam: Additional Orthopedic Findings: RIGHT foot toe amputations 1,2,3,4,5 LEFT 2nd hammertoe contracture semi- rigid BL foot with absent plantar flexion 0/5 muscle strength with palpable rupture to achilles tendon DIAGNOSIS: Type II diabetes mellitus with neurological manifestations PVD (peripheral vascular disease) Amputated toe of right foot Personal history of diabetic foot ulcer Callus Onychomycosis Venous ulcer of left lower extremity without varicose veins Ulcer of left lower extremity, limited to breakdown of skin Venous ulcer of right lower extremity without varicose veins Ulcer of right lower extremity, limited to breakdown of skin 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 Diabetic foot ulcer Diabetic leg ulcer Achilles rupture, left 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 Achilles rupture, right Ulcer of left foot with fat layer exposed Skin ulcer of left great toe, limited to breakdown of skin Malnutrition 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 No fractures or dislocations noted. No soft tissue emphysema noted. No osteopenia or sclerosis noted. tibial and fibular sesamoid excised, there is small calcified piece of fibular sesamoid bone noted to plantar lateral 1st met. RT foot amp at MTPJ 1,2,3,4,5. no lytic lesions. no soft tissue gas noted. 08/17/24 Xray left foot: No radiographic presence of OM 08/17/24 Xray tib/fib left leg: No radiographic presence of OM 08/17/24 Xray tib/fib right leg: No radiographic presence of OM 08/17/24 CRP: 13.6 and 08/18/24 ESR: 97 / PVR b/l leg: Left MANJEET 0.9 and Right 0.95 08/18/24 Left leg wound culture: Few pseudomonas aeruginosa FINAL 08/18/24 MRI BL LE: 1. No drainable soft tissue abscess or evidence for osteomyelitis 2. Diffuse edema/cellulitis and fatty muscle atrophy with nonspecific myositis. 10/01/24 albumin: 3.3 11/27/24 right achilles wound Cx: MSSA, Streptococcus agalactiae (group b streptococcus) Abnormal , Proteus mirabilis Abnormal LEFT lateral lower leg ulcer stable. LEFT posterior achilles lower leg ulcer stable. LEFT dorsal lateral foot ulcer improved. LEFT medial ankle ulcer stable. RIGHT posterior achilles lower leg ulcer stable. LEFT anterior lower leg wound healed. RIGHT anterior lower leg wound healed. RIGHT lateral lower leg wound healed. LEFT dorsal lateral foot ulcer, LEFT medial ankle ulcer, LEFT lateral lower leg ulcer treated with sharp excisional debridement carried out of the wound with non selective sharp excisional debridement past the dermis into SUBCUTANEOUS level with use of curette and 15 scalpel blade. Devitalized tissue removed. We then flushed out the wound with wound wash sterile saline. Area numbed with lidocaine gel if sensate prior. LEFT posterior achilles lower leg ulcer treated with sharp excisional debridement carried out of the wound with non selective sharp excisional debridement past the dermis into FASCIA and FAT level with use of curette and 15 scalpel blade. Devitalized tissue removed and we then flushed out the wound with wound wash sterile saline. Area numbed with lidocaine gel if sensate prior. RIGHT posterior Achilles lower leg ulcer treated with sharp excisional debridement carried out of the wound with non selective sharp excisional debridement past the dermis into BONE level with use of curette, bone rongeur and 15 scalpel blade. Devitalized tissue removed and we then flushed out the wound with wound wash sterile saline. Area numbed with lidocaine gel if sensate prior. Discussed importance in offloading, proper nutrition including blood sugar control and getting enough protein and vitamins, infection prevention, and proper wound care in wound healing. Also discussed detrimental impact of smoking on healing. Reviewed proper wound care with patient. To not soak wound but to clean appropriately. To watch for signs of infection both local and systemic. These were reviewed with the patient. If seen to contact office or go to ED. To continue wound care consisting of washing the wound with soap and water or vashe solution soaked gauze for 3-5 minutes. Then to apply dressing consisting noted below Cont LEFT wound vac. RIGHT side put on HOLD. Discussed need to fill in the deficit from BL achilles rupture as well as to get coverage over achilles. Discussed wound vac is best option. Discussed would need to fill in wounds a bit more with wound vac before considering grafting. Discussed as bridging away from wound site keeping suction at 175mmHg to best effectively heal area. Discussed with both achilles ruptured she will struggle with push off in gait. Discussed achilles likely ruptured due to chronic ulceration with infections and drying out of tendon. Discussed if we can get her healed she will need AFO to aid in walking. Discussed she is at high risk for BKA BL. Discussed she can weight bear as tolerated. Discussed need assist for activities as she is a high fall risk. Discussed limiting motion at ankle joint to stop tugging on wounds to aid in healing. Discussed need to balance this with maintaining muscle. Discussed need for better nutrition Patient educated on the importance of proper nutrition to help optimize healing. Discussed eating three balanced meals daily and meal preparation. Discussed importance of high protein intake. Discussed supplementation drinks such as ensure, glucerna, nepro, tamiko. Discussed need for blood sugar control, proper vitamin intake whether dietary or through supplementation. Discussed Vitamin C, Multi Vitamin, zinc, and magnesium supplementation. Discussed may need to watch sodium intake as well especially if patient experiences swelling. Offered nutrition referral. Patient taking protein supplement drink BID between meals Discussed with cluster wound noted on right achilles wound with small skin bridge communicated with main wound would recommend going to OR to get rid of the skin bridge so wound vac can work effectively. This will actually allow wound to heal better. Discussed if going to OR would also recommend bone biopsy as wound has been to bone for several weeks. Would also recommend cleaning up left side at same time. Left achilles wound is looking good, would consider putting intregra graft on in OR as well. Discussed we only have I wound vac supplies. Patient to bring own wound vac supplies to give option of replacing vacs after surgery. Discussed is drainage too much or not looking appropriate may do alternative dressing and/or have nursing reapply vac. Patient had all questions answered. Patient agrees to move forward with surgical option. Plan for Wednesday surgery. Can go to [facility] prior to surgery. Described the procedure at length. Discussed at length the risks, benefits, alternatives, and complications including but not limited to infection, delayed healing, nonhealing, recurrence, and need for further surgery. Patient understood and all questions were answered to patient satisfaction. Discussed post operative care plan at length including but not limited to length of recovery and physical limitations during recovery. Patient agreed to proceed. Patient went to PAT 11/30/24 and was not given clearance for surgery. Patient needs to hold Jardiance 3 days prior and need cardiac clearance and to have labs checked. She is scheduled for cardiac work up 12/14/24. Will tentatively plan surgery for 12/15/24 knowing that if she doesn't gain cardiac clearance we would need to delay again. Rx bactrim-will monitor for issues Follow up 1 week for wound check. Will tentatively plan for OR on 12/15/24 after cardiac testing on 12/14/24 and to get lab work drawn prior as well. All changes to wound vac settings and wound care must be cleared through Dr. Pickard prior to any changes being made. The pressure must remain at 175 due to the amount of tracking that must be done for the wounds Clear vac drape to all skin where foam will be placed. It is imperative to have all skin covered with clear drape where the black foam will be placed as there are new wounds where the black foam was placed directly on the patient's skin PLEASE ATTEMPT TO FEED THE PATIENT A DIABETIC DIET Diabetic Premiere Protein Shakes 2 x daily between meals May ambulate with Assistance Physical Therapy to assess what level of aid the patient needs to ambulate with assistance Patient may bear weight 1. Wash your hands with soap and water before and after wound care. 2. Gather all supplies needed. 3. Clean bilateral lower legs and feet with Dial Soap and Water. After removing the old dressings, the bilateral lower legs and feet MUST be cleaned with Dial Soap and Water prior to using Vashe' or Dakins and applying any new dressings. Do not get the wounds wet in the shower. 4. Take a clean 4x4 gauze and moisten with a few drops of Vashe (blue bottle) or Dakins and allow to soak for 5-10 minutes, then remove and pat dry. Right Anterior, medial, lateral Lower leg wounds - Cleanse wound with Dakins moistened gauze. Allow to soak for 5-10 min. -Apply Adaptic -Cover with Drawtex/ABD pad -Secure with kerlix and tape and change daily Right Achilles/heel (Holding Wound Vac on right leg since 11/27/2024) - Cleanse wound with Dakins moistened gauze. Allow to soak for 5-10 min. - Apply Mesalt packing to the original tunnel now connecting to the new distal wound. Pack the the tendon exposed area of the achilles with Mesalt. - Apply Endoform (bumpy side down) to the proximal (well granulated) achilles wound OR may use Triple Mulino collagen sheet (provided to patient) - Apply Urgotol Ag OR Adaptic on top of the endoform - Place ABD pad over achilles and Heel cup ABD on heel. - Wrap with Kerlix and secure with tape. - Change dressing daily and as needed to maintain a clean dry dressing. Left medial Ankle, Left anterior lower leg, Left Lateral Lower leg: - Apply to the wound base: Adaptic - Cover with: drawtex, clear VAC drape - Change your dressing: M-W-F and as needed to keep clean and dry - Secure with olegario wrap from behind the toes to 1 below the knee - OLEGARIO WRAPS ARE NOT FOR COMPRESSION - THEY ARE ONLY TO HELP KEEP DRESSINGS IN PLACE Left Achilles Alternate Dressing if the wound VAC fails: - Apply to the wound base: dakins moistened gauze packed in to the wound bed - Cover with: drawtex, 4x4's, abd pads - Secure dressing with: conform or kerlix wrap. tape - Change your dressing: Daily and as needed to keep clean and dry - Secure with olegario wrap from behind the toes to 1 below the knee - OLEGARIO WRAPS ARE NOT FOR COMPRESSION - THEY ARE ONLY TO HELP KEEP DRESSINGS IN PLACE Please apply a wound vac dressing on left achilles wound & dorsal/lateral left foot wound: KCL Recommended Settings: 175 mmHg, continuous Intensity High Continuous suction Wound Vac: Skin prep to naya-wound Duoderm to naya-wound of all wounds Eaken seal around the wound edge of each wound Apply Acticoat to the entire wound base all wounds Clear vac drape to all skin where foam will be placed and for bridged areas: It is imperative to have all skin covered with clear drape where the black foam will be placed. Black foam to wound bed - be sure to not over pack wounds with foam Track pad to be placed avoiding all bony prominence Pad and protect skin from tubing at all times using ABD pads between patient's skin and VAC tubing Change dressing 3 x weekly and as needed to keep clean and dry Apply a loose olegario wrap to secure dressings Type II diabetes mellitus with neurological manifestations 250.60 E11.49 Diagnosis Notes Drag & Drop to change diagnosis order PVD (peripheral vascular disease) 443.9 I73.9 Diagnosis Notes Drag & Drop to change diagnosis order Amputated toe of right foot 895.0 S98.131A Diagnosis Notes Drag & Drop to change diagnosis order Personal history of diabetic foot ulcer V12.29 Z86.31 Diagnosis Notes Drag & Drop to change diagnosis order Callus 700 L84 Diagnosis Notes Drag & Drop to change diagnosis order Onychomycosis 110.1 B35.1 Diagnosis Notes Drag & Drop to change diagnosis order Venous ulcer of left lower extremity without varicose veins 459.81 I87.2 Diagnosis Notes Drag & Drop to change diagnosis order Ulcer of left lower extremity, limited to breakdown of skin 707.10 L97.921 Diagnosis Notes Drag & Drop to change diagnosis order Venous ulcer of right lower extremity without varicose veins 459.81 I87.2 Diagnosis Notes Drag & Drop to change diagnosis order Ulcer of right lower extremity, limited to breakdown of skin 707.10 L97.911 Diagnosis Notes Drag & Drop to change diagnosis order 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 707.13 L97.323 Diagnosis Notes Drag & Drop to change diagnosis order Diabetic foot ulcer 250.80 E11.621 Diagnosis Notes Drag & Drop to change diagnosis order Diabetic leg ulcer 250.80 E11.622 Diagnosis Notes Drag & Drop to change diagnosis order Achilles rupture, left 845.09 S86.012A Diagnosis Notes Drag & Drop to change diagnosis order 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 707.13 L97.312 Diagnosis Notes Drag & Drop to change diagnosis order Achilles rupture, right 845.09 S86.011A Diagnosis Notes Drag & Drop to change diagnosis order Ulcer of left foot with fat layer exposed 707.15 L97.522 Diagnosis Notes Drag & Drop to change diagnosis order Skin ulcer of left great toe, limited to breakdown of skin 707.15 L97.521 Diagnosis Notes Drag & Drop to change diagnosis order Malnutrition 263.9 E46 Diagnosis Notes Drag & Drop to change diagnosis order 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 707.13 L97.314 Diagnosis Notes Drag & Drop to change diagnosis order Cellulitis of right ankle 682.6 L03.115 Nursing Documentation Pertinent Medical History: DM2, HTN, venous insufficiency, & heart failure Wound Etiology according to patient: wounds started February 2024 Pt had right great toe amputation June 18, 2023 Patient arrived via: Ambulatory with [facility] Care Company/Nursing Facility: [facility] Consent captured for debridement per Hu Pickard DPM and good until April 2025 Anticoagulant Therapy: ASA 81mg ACTIVE CARE PER PROVIDER: Hu Pickard DPM Application Dates: Grafts are complete 01/07/2023 Apl[facility] 01/15/2023 Apl[facility]raf 01/21/2023 Apl[facility] 01/27/2023 Apl[facility]raf 02/04/2023 Apl[facility] Wounds 1-38 previously closed 40 closed 44-45 closed 47-48 Closed 50 Closed 51 closed ___ WOUND ASSESSMENT: Refer to Provider's Wound Assessment Note VASCULAR ASSESSMENT BY PROVIDER: See provider wound assessment note CHF History: Yes as of February 2022, Dr. Sadler in Cardiology EDEMA: Right Foot: generalized brawny Right ankle: generalized brawny Right Calf: 1+ Left Foot: generalized brawny Left ankle: generalized brawny Left Calf: 1+ MEASUREMENTS: in CM Right Calf: 34.0 Right Ankle: 23.2 Left Calf: 32.5 Left Ankle: 23.3 Length: 43.0 not measured at visit WOUND PHOTOGRAPHY: yes (date taken 12/08/24) DEBRIDEMENT PROCEDURE BY PROVIDER: Anesthetic Used: lido gel 2% applied by Amaris RUIZ Other procedure: N/A Specimen collected: N/A WOUND TREATMENT PER MD ORDER: Wounds cleansed by mechanical debridement to allow provider to visualize wound base\ *Silicone Allergy LEFT LOWER LEG WOUNDS WOUND # 41 - LOCATION: Left Medial Ankle (NEW 07/26/24 L: 0.5 cm x W: 0.7 cm x D: 0.1 cm WOUND # 43 - LOCATION: Left Dorsal / Lateral Foot -(NEW 07/26/24 L: 0.1 cm x W: 0.1 cm x D: 0.1 cm WOUND # 46 LOCATION: Left Lateral Lower Leg (NEW 10/12/24)) L: 0.7 cm x W: 0.5 cm x D: 0.1 cm Cleansed with: Dial soap and water, Dakins Applied to naya-wound skin:skin prep Applied to wound bed: adaptic, drawtex Covered and secured with: Clear VAC drape ABD pads, kerlix Secure with olegario wrap from behind the toes to 1 below the knee Lose to only secure the dressings [facility] 12/08/24: Left lateral lower leg: red rash noted - Hydrocortisone cream applied WOUND # 49 LOCATION: Left anterior lower leg - (new 11/10/24) 11/17/24 closed, but fragile Closed 12/08/2024 - - - - - - - - - - - - - - - - - - - - - - - - - - - - - - - - - - - - - - - - - - - - - - - - - - - - - - - - - - - - - - - - - - - - - - - - WOUND # 39 LOCATION: Right Achilles Cluster (Hold Vac 11/27/2024 on right side only) L: 11.4 cm x W: 3.2 cm x D: 1.4 cm - Tendon exposed Tunnel: in cm 0600: 4.9 to bone Undermining: in cm Cleansed with: Dial soap and water, Dakins Applied to naya-wound skin:skin prep Applied to wound bed: Proximal end of wound: Endoform covered with urgotul ag Distal end of wound: packed with mesalt ribbon towards the heel Covered and secured with: drawtex, drymax, abd pads, abd heel cup, kerlix wrap, tape Secure with olegario wrap from behind the toes to 1 below the knee Lose to only secure the dressings - - - - - - - - - - - - - - - - - - - - - - - - - - - - - - - - - - - - - - - - - - - - - - - - - - - - - - - - - - - - - - - - - - - - - - - - WOUND VAC WOUNDS: 42 WOUND # 42 - LOCATION: Left Achilles (NEW 07/26/24) L: 9.4 cm x W: 2.7 cm x D: 1.3 cm - Tendon exposed Cleansed with: Dial soap and water/ Dakins Applied to naya-wound skin:skin prep, duoderm, saul seal Applied to wound bed: acticoat, black foam Covered and secured with: drape, track pad, ABD pads, Kerlix, & Tape Secure with gentle olegario wrap from behind the toes to 1 below the knee VAC SETTINGS: 175 mmHg, continuous Intensity High Continuous suction NPWT Tracking : Wound location: achilles, left lateral foot Vac Start date: by [facility] Vac Hold date: Vac Restart date: Hospitalization date: - - - - - - - - - - - - - - - - - - - - - - - - - - - - - - - - - - - - - - - - - - - - - - - - - - - - - - - - - - - - - - - - - - - - - - - - RIGHT LOWER LEG WOUNDS WOUND #52 LOCATION: Right anterior lower leg (NEW 11/17/24) closed 11/24/24, 12/01/24 re-opened Closed 12/08/24 WOUND #53 LOCATION: Right lateral lower leg (NEW 11/17/24) closed 11/24/24, 12/01/24 re-opened Closed 12/08/24 - - - - - - - - - - - - - - - - - - - - - - - - - - - - - - - - - - - - - - - - - - - - - - - - - - - - - - - - - - - - - - - - - - - - - - - - COMPRESSION: NO COMPRESSION. Gentle olegario wraps only to secure dressings SPECIAL NEEDS: Coordination of care - AVS faxed to [facility] Emotional support N/A OR set-up N/A Yarn Examiner N/A Incontinence needs N/A DME company: ordered 03/01/24 [employer] wraps, Supplies ordered 06/07/2024 x 30 days with 2 refills DISCHARGED in stable condition to: back to [facility] with transport PLAN/ORDERS: Follow-up in the Wound Center with Dr Pickard once a week: If approved - patient will have surgery WednesdayDecember 15 Continue aggressive nutritional support to assist wound healing, focusing on increasing protein intake, keeping blood sugars stable/controlled Blood sugars must be kept below 150 for wound healing Patient is a High Fall Risk due - UP WITH ASSIST ONLY HAVE PATIENT ATTEMPT CHAIR YOGA EXERCISES - LIMITED ANKLE MOVEMENT WEIGHT BEARING TOLERATED Please give patient premiere diabetic protein shakes 2 x daily between meals. Plan is to go to operating room Wednesday12/15/2024 if cleared by cardiology. Time to be determined. OTHER EDUCATION: Dr. Pickard discussed delayed surgery until patient is cleared by cardiology; will tentatively plan for 12/15/24. Education performed regarding lymphedema/edema: n/a Elevation of extremity above the heart for 30 minutes three times daily and as needed Exercise such as writing the ABC's with your toes in the air, walking and/or calf pumps Wearing compression as ordered by provider Diet controlling of sodium as instructed by provider Use of medication to help control edema. UNIVERSAL PROTOCOL / SAFETY CHECKLIST Procedure to be Performed sharp debridement of Bilateral Lower Legs Sign In: 1115 A Moment of CARE was completed. Personnel directly involved with the procedure wore the appropriate PPE (Personal Protective Equipment). Patient/Surrogate Stated/Verified: 1120 PATIENT VERIFIED(optional for EMERGENT procedures): Patient name, Date of , Relevant allergies, and The intended procedure Time Out Communication: 1120 Intended patient and procedure match the source documents. Consent documented and matches the intended procedure. No relevant labs, photos, and/or imaging studies were applicable for review. Sign Out: 1135 SIGN OUT (optional for EMERGENT procedures): All instruments, equipment, possible retained foreign bodies accounted for. Current HBOT - Dr. Benitez in to evaluate documented in this encounter [facility] 12-08-2024 Telephone encounter Note Left a message on patients VM regarding to hold jardiance 3 days prior to procedure scheduled with Dr Pickard on 12-15-24. Advised patient to hold jardiance as of 12-12-24. Advised the patient to call [phone] ext [phone] if she had any questions. Cherelle Rice PA-C [facility] Work Phone: 12-08-2024 Miscellaneous Notes Left a message on patients VM regarding to hold jardiance 3 days prior to procedure scheduled with Dr Pickard on 12-15-24. Advised patient to hold jardiance as of 12-12-24. Advised the patient to call [phone] ext [phone] if she had any questions. Cherelle Rice PA-C documented in this encounter [facility] 12-08-2024 Instructions Bonnie Molina RN - 12/08/2024 10:35 AM EDT WOUND CARE INSTRUCTIONS- Shade Brambila Wound location: Bilateral Lower Legs [facility] HOME: FAX: [phone] All changes to wound vac settings and wound care must be cleared through Dr. Pickard prior to any changes being made. The pressure must remain at 175 due to the amount of tracking that must be done for the wounds Clear vac drape to all skin where foam will be placed. It is imperative to have all skin covered with clear drape where the black foam will be placed as there are new wounds where the black foam was placed directly on the patient's skin PLEASE ATTEMPT TO FEED THE PATIENT A DIABETIC DIET Diabetic Premiere Protein Shakes 2 x daily between meals May ambulate with Assistance Physical Therapy to assess what level of aid the patient needs to ambulate with assistance Patient may bear weight 1. Wash your hands with soap and water before and after wound care. 2. Gather all supplies needed. 3. Clean bilateral lower legs and feet with Dial Soap and Water. After removing the old dressings, the bilateral lower legs and feet MUST be cleaned with Dial Soap and Water prior to using Vashe' or Dakins and applying any new dressings. Do not get the wounds wet in the shower. 4. Take a clean 4x4 gauze and moisten with a few drops of Vashe (blue bottle) or Dakins and allow to soak for 5-10 minutes, then remove and pat dry. Right Achilles/heel (Holding Wound Vac on right leg since 11/27/2024) - Cleanse wound with Dakins moistened gauze. Allow to soak for 5-10 min. - Apply Mesalt packing to the original tunnel towards the heel. Pack the the tendon exposed area of the achilles with Mesalt. - Apply Endoform (bumpy side down) to the proximal (well granulated) achilles OR may use Triple Mulino collagen sheet (provided to patient) - Apply Urgotol Ag OR Adaptic on top of the endoform - Place ABD pad over achilles and Heel cup ABD on heel. - Wrap with Kerlix and secure with tape. - Change dressing daily and as needed to maintain a clean dry dressing. - Secure with olegario wrap from behind the toes to 1 below the knee - OLEGARIO WRAPS ARE NOT FOR COMPRESSION - THEY ARE ONLY TO HELP KEEP DRESSINGS IN PLACE Left medial Ankle, Left Lateral Dorsal Foot & Left Lateral Lower Leg - Apply to the wound base: Adaptic - Cover with: drawtex, clear VAC drape - Change your dressing: M-W-F and as needed to keep clean and dry - Secure with olegario wrap from behind the toes to 1 below the knee - OLEGARIO WRAPS ARE NOT FOR COMPRESSION - THEY ARE ONLY TO HELP KEEP DRESSINGS IN PLACE Left Achilles: WOUND VAC: Please apply a wound vac dressing on left achilles wound & dorsal/lateral left foot wound: KCL Recommended Settings: 175 mmHg, continuous Intensity High Continuous suction Wound Vac: Skin prep to naya-wound Duoderm to naya-wound of all wounds Eaken seal around the wound edge of each wound Apply Acticoat to the entire wound base all wounds Clear vac drape to all skin where foam will be placed and for bridged areas: It is imperative to have all skin covered with clear drape where the black foam will be placed. Black foam to wound bed - be sure to not over pack wounds with foam Track pad to be placed avoiding all bony prominence Pad and protect skin from tubing at all times using ABD pads between patient's skin and VAC tubing Change dressing 3 x weekly and as needed to keep clean and dry Apply a loose olegario wrap to secure dressings Left Achilles Alternate Dressing if the wound VAC fails: - Apply to the wound base: dakins moistened gauze packed in to the wound bed - Cover with: drawtex, 4x4's, abd pads - Secure dressing with: conform or kerlix wrap. tape - Change your dressing: Daily and as needed to keep clean and dry - Secure with olegario wrap from behind the toes to 1 below the knee - OLEGARIO WRAPS ARE NOT FOR COMPRESSION - THEY ARE ONLY TO HELP KEEP DRESSINGS IN PLACE - Avoid sitting with legs in a dependent position or standing for long periods of time. - Attempt to lay flat and elevate your legs above the level of your heart 2-3 times daily, for 30 minutes at a time. - Be sure to continue walking and/or calf pumps and exercises to mimic writing the alphabet with your foot, as instructed Foot care Many people with diabetes lose the feeling in their feet (neuropathy). Therefore, they might not know they have an injury that can lead to serious problems, such as foot removal (amputation). By taking care of your feet, most serious problems can be prevented. If you have problems checking your own feet, have a family member or friend help you. Easy steps to protect your feet: Check your feet every day for: dry or cracked skin, cuts, open sores, blisters, redness, swelling, corns, calluses, or toenail problems. Use a mirror if necessary. Report any problems to your doctor. Keep your feet clean and dry, especially between the toes. If your feet are dry or cracked use a moisturizing lotion at least daily but never between the toes. See your judicial clerk every three months for foot and nail care. Don't go barefoot. Wear shoes or slippers at all times. Wear comfortable shoes that fit well. Check inside your shoes for foreign objects or rough spots before putting on shoes. Always wear socks. Avoid using anything hot, such as heating pads, hot water bottles, hot tubs, or bath water. Check the temperature of bath water with your elbow not your foot. Take your shoes and socks off at every office visit to remind your doctor to check your feet. Also, never tape a dressing directly to the skin on your legs or feet. Instead, use a self-adherent bandage to avoid injuring the skin on your lower extremities If calluses form they can cause wound ulcers to appear under the callus, must be seen by [employer] every three months to prevent. Maintain controlled blood sugar, if blood sugar is consistently above 200 this can delay wound healing and aggravate neuropathy. To give your wound the best chance to heal: - Eat three balanced meals daily focusing on the protein - Control your blood sugar. Keep blood sugar less than 200 - Complete your wound care instructions as ordered - Vitamin C 500 mg twice daily - Multiple Vitamin Daily - Drink a protein shake daily - Premiere Clear or Glucerna for Diabetic patients, Nepro for renal patients and premiere for non-renal and non-diabetic patients Report any of the following signs and symptoms of infection to the Wound Center at [phone] or go to the Emergency Department: Fever or chills Increased drainage Green or yellow drainage Foul odor Increased pain Hardness around the wound Redness, warmth or swelling of the surrounding tissue Color change to the wound Evenings / Weekends / Holidays If you call the wound center at the phone number provided above, please leave a detailed message that includes your full name, birthday, and phone number. We are seeing patients during the day, so we will return your call within a 24-48 hr period in the order your call was received. There is not an on-call provider assigned to the wound center. If you have an emergency that needs to be addressed, please go to an Urgent Care or Emergency Room. Thank you for your cooperation and understanding. If you are feeling ill, please call to reschedule your appointment. If you believe your illness to be wound related, call and leave a message using the directions above describing your symptoms. If you cannot wait 24-48 hrs for a callback, please get evaluated in the nearest emergency department. PLAN/ORDERS: Follow-up in the Wound Center with Dr Pickard once a week: If approved - patient will have surgery WednesdayDecember 15 Continue aggressive nutritional support to assist wound healing, focusing on increasing protein intake, keeping blood sugars stable/controlled Blood sugars must be kept below 150 for wound healing Patient is a High Fall Risk due - UP WITH ASSIST ONLY HAVE PATIENT ATTEMPT CHAIR YOGA EXERCISES - LIMITED ANKLE MOVEMENT WEIGHT BEARING TOLERATED Please give patient premiere diabetic protein shakes 2 x daily between meals. Plan is to go to operating room Wednesday12/15/2024 if cleared by cardiology. Time to be determined. Hu Pickard DPM/celina/lt WOUND # 41 - LOCATION: Left Medial Ankle (NEW 07/26/24 L: 0.5 cm x W: 0.7 cm x D: 0.1 cm WOUND # 46 LOCATION: Left Lateral Lower Leg (NEW 10/12/24)) L: 0.7 cm x W: 0.5 cm x D: 0.1 cm WOUND # 49 LOCATION: Left anterior lower leg - (new 11/10/24) Closed 12/08/2024 WOUND #52 LOCATION: Right anterior lower leg (NEW 11/17/24) Closed 12/08/24 WOUND #53 LOCATION: Right lateral lower leg (NEW 11/17/24) Closed 12/08/24 WOUND # 39 LOCATION: Right Achilles L: 11.4 cm x W: 3.2 cm x D: 1.4 cm - Tendon exposed Tunnel: in cm 0600: 4.9 to bone Undermining: in cm WOUND VAC WOUNDS: Wounds 42 & 43 WOUND # 42 - LOCATION: Left Achilles (NEW 07/26/24) L: 9.4 cm x W: 2.7 cm x D: 1.3 cm - Tendon exposed WOUND # 43 - LOCATION: Left Dorsal / Lateral Foot -(NEW 07/26/24 L: 0.1 cm x W: 0.1 cm x D: 0.1 cm documented in this encounter [facility] 12-08-2024 Note [facility] 12-04-2024 Note [facility] 12-04-2024 History of Presen t illness Narrative Date of Visit: 12/01/2024 Problem list reviewed. CHIEF COMPLAINT: check B/L lower leg wounds and NEW RIGHT wound DM II A1c 7.4 (10/25/24) DLS 02/08/24 ADM 08/17/24 plan wound debride part only HISTORY OF PRESENT ILLNESS: Patient presents for BL leg wound check. She believes the right leg wound is doing better. They are not doing the wound vac on this side anymore. She is still taking the doxy. She relates she couldn't go to OR today as she didn't get clearance by PAT. She relates she wouldn't have been off the jardiance long enough and needed cardiac clearance. She states pain is a 0/10. She relates she can't feel feet well and gets numbness. Hx She was admitted 08/17/24 and was DC to [facility] where she is still at. She was DC on cipro and flagyl which she finished taking. She relates her insurance wouldn't cover it so she is self paying and planning on going to the nonskilled assistive living side soon. She is at [facility]. Patient is taking protein drinks. Referred by aircraft hydraulic equipment mechanic, Dr. Dasilva. Patient is DM and sees aircraft hydraulic equipment mechanic Denies N/V/F/C/D/SOB/CP/LP. PCN allergy Hx RT 3rd perc flexor tenotomy (07/26/23) HX R great toe amputation 06/18/23, excision tibial and fibular sesamoid, bone biopsy first met head. Right 2nd toe amputation and hallux I&D 10/28/22. Hx s/p RT toe amp 3,4,5 (DOS 10/14/23) DME DM inserts 08/24/23 rx circade wraps 08/14/22 CURRENT MEDICATIONS: oxyCODONE HCl Oral Tablet 5 MG (07/05/2024) Take 1 tablet every 12 hours as needed for 7 day(s) Percocet Oral Tablet 5-325 MG (07/20/2024) Take 1 tablet every 12 hours as needed for 7 day(s) oxyCODONE-Acetaminophen Oral Tablet 5-325 MG (10/28/2022) Ketorolac Tromethamine Ophthalmic Solution 0.5 % (04/26/2023) Accu-Chek Jose Plus In Vitro Strip (09/23/2022) Atorvastatin Calcium Oral Tablet 80 MG (06/13/2023) miSOPROStol Oral Tablet 200 MCG (06/15/2023) TAKE 2 TABLETS BY MOUTH THE DAY PRIOR TO PROCEDURE AT BEDTIME WITH FOOD Fluticasone Propionate Nasal Suspension 50 MCG/ACT (12/15/2022) USE 2 SPRAYS IN EACH NOSTRIL DAILY X1 WEEK,THEN 1 SPRAY IN EACH NOSTRIL DAILY THEREAFTER NEEDED Nitrofurantoin Monohyd Macro Oral Capsule 100 MG (02/08/2023) Fluconazole Oral Tablet 200 MG (03/20/2024) TAKE 1 TABLET EVERY DAY FOR 21 DAYS Bactrim DS Oral Tablet 800-160 MG (06/24/2023) Take 1 tablet twice a day for 10 day(s) Ofloxacin Ophthalmic Solution 0.3 % (03/30/2023) diazePAM Oral Tablet 10 MG (02/19/2022) TAKE 1 TABLET 60 MIN BEFORE TEST Atorvastatin Calcium Oral Tablet 40 MG (11/18/2022) FLUoxetine HCl Oral Capsule 40 MG (01/26/2022) Enalapril Maleate Oral Tablet 10 MG (01/26/2022) TAKE 1 TABLET BY MOUTH EVERY DAY Erythromycin Ophthalmic Ointment 5 MG/GM (02/09/2022) APPLY 1 A SMALL AMOUNT LEFT EYE 4 TIMES A DAY Atorvastatin Calcium Oral Tablet 20 MG (01/26/2022) TAKE 1 TABLET BY MOUTH EVERY DAY Spironolactone Oral Tablet 25 MG (06/15/2023) TAKE 0.5 TABLETS BY MOUTH ONCE DAILY. Jardiance Oral Tablet 25 MG (06/14/2023) TAKE 1 TABLET BY MOUTH EVERY DAY WITH BREAKFAST Furosemide Oral Tablet 40 MG (11/18/2022) HumuLIN R U-500 KwikPen Subcutaneous Solution Pen-injector 500 UNIT/ML (06/14/2023) INJECT 40 UNITS SUBCUTANEOUSLY AT BREAKFAST, 100 UNITS AT LUNCH, 80 UNITS AT SUPPER. metFORMIN HCl Oral Tablet 1000 MG (11/23/2022) TAKE 1 TABLET BY MOUTH TWICE DAILY WITH MEALS. E11.3599 ALLERGIES: Amoxicillin Unknown Band-Aid [place] Surg Dressing Other Bandaging Tape Other PAST MEDICAL HISTORY: Podiatry History remarkable for Foot Numbness, Fungal Nails, Leg or Foot Ulcers. The patient has a past medical history of Arthritis, Depression, DM-Medication Dependent, Poor Circulation. Neuropathy High Cholesterol SURGICAL HISTORY: Hand Tonsils HOSPITALIZATIONS: None Noted SOCIAL HISTORY: Smoking Status: Never smoker; Last Reviewed: 12/08/2023 Alcohol use: social drinker No drug use Social History Reviewed (01/16/2021 11:20:18 AM EST) FAMILY HISTORY: There is a family history of Denial of any knowledge of significant family history. Denial of any knowledge of significant family history Family History Reviewed (01/16/2021 11:20:19 AM EST) REVIEW OF SYSTEMS: Psychologic: Admits to No psych symptoms. Review of systems otherwise negative PHYSICAL EXAMINATION: Vital Signs: Weight 235 lbs; Height 5 ft 8 in; BMI 35.7 11/29/2024 9:36 AM (EST) Temperature 98.6 F; Pulse Rate 100 bpm; Blood Pressure 120 / 80 mm/Hg Vascular Exam: DP pulses of the RIGHT and LEFT foot are +1/4 PT pulses of the RIGHT and LEFT foot are +1/4 CFT is within normal limits, less than 3s to all digits, both feet. Skin temperature from proximal to distal is warm to warm, both feet. BL LE edema Dermatologic Exam: LEFT medial ankle wound predebridement measures 0.4x0.6x0.1cm and post debridement measures 0.5x0.7x0.1cm with 70:30 granular fibrotic base, minimal surrounding slough, no surrounding edema and erythema, no purulence expressed, no probe to bone, MILD malodor, moderate serosanginous drainage. Into level of SUBCUTANEOUS tissue. LEFT lateral lower leg wound predebridement measures 0.9x0.5x0.1cm and post debridement measures 1.0x0.6x0.1cm with 70:30 granular fibrotic base, surrounding slough, no erythema, no purulence, no probe to bone, MILD malodor, moderate serosanguinous drainage. Into level of SUBCUTANEOUS TISSUE, partial thickness LEFT posterior Achilles lower leg wound predebridement measures 8.8x3.6x0.6cm and post debridement measures 9.0x3.8x0.7cm with 85:15 granular fibrotic base, surrounding slough, no surrounding edema and erythema, no purulence expressed, no probe to bone-exposed achilles tendon with complete RUPTURE, MILD malodor, moderate serosanginous drainage. Into level of TENDON. LEFT dorsal lateral foot wound predebridement measures 0.3x0.9x0.1cm and post debridement measures 0.4x1.0x0.2cm with 70:30 granular fibrotic base, no surrounding callus, no surrounding edema and erythema, no purulence expressed, no probe to bone-exposed extensor tendon, MILD malodor, moderate serosanginous drainage. Into level of TENDON tissue LEFT anterior lower leg wound predebridement measures 0.4x0.4x0.1cm and post debridement measures 0.5x0.5x0.1cm with 70:30 granular fibrotic base, surrounding slough/blister, no erythema, no purulence, no probe to bone, no malodor, moderate serosanguinous drainage. Into level of SUBCUTANEOUS TISSUE, partial thickness RIGHT posterior Achilles lower leg cluster wound predebridement measures 9.4x3.8x1.1cm and post debridement measures 9.5x4.0x1.3cm with tunnelling at 6 o'clock for 3.9cm and undermining at 7 o'clock at 2cm, 60:40 granular fibrotic base, wound cluster is communicating with each other. surrounding slough, no surrounding edema and IMPROVED erythema, no purulence expressed, YES probe to bone-Exposed achilles tendon posteriorly with fraying and complete RUPTURE and tracking to calcaneus, MILD malodor, moderate serosanginous drainage. Into level of BONE. RIGHT lateral lower leg wound REOPENED RIGHT lateral lower leg wound predebridement measures 1.8x0.5x0.1cm and post debridement measures 2.0x0.6x0.1cm with 50:50 granular fibrotic base, surrounding slough, no erythema, no purulence, no probe to bone, no malodor, moderate serosanguinous drainage. Into level of SUBCUTANEOUS TISSUE, partial thickness RIGHT anterior lower leg wound REOPENED RIGHT anterior lower leg wound predebridement measures 5.8x2.6x0.1cm and post debridement measures 6.0x2.8x0.1cm with 70:30 granular fibrotic base, surrounding slough, no erythema, no purulence, no probe to bone, no malodor, moderate serosanguinous drainage. Into level of SUBCUTANEOUS TISSUE, partial thickness RIGHT medial lower leg wound healed RIGHT medial heel maceration, area of concern, no open wound, IMPROVED LEFT foot 2nd toe tuft hyperkeratotic tissue Nails 2-5 left are thickened, elongated and discolored with subungual debris. The nails are greater than .3mm in thickness. The discoloration is yellowish in color. Innerspaces 1-4 LT are clean dry and intact. Skin texture and turgor are decreased. absent or decreased hair growth bilateral. chronic lower leg red hyperpigmentation Neurologic Exam: Comments/Other Findings: Vibratory sensations decreased LT, Protective sensations absent LT tested with 5.07 monofilament, and light, sharp, and temperature sensations intact LT. Normal Babinski test noted bl foot after testing Orthopedic Exam: Additional Orthopedic Findings: RIGHT foot toe amputations 1,2,3,4,5 LEFT 2nd hammertoe contracture semi- rigid BL foot with absent plantar flexion 0/5 muscle strength with palpable rupture to achilles tendon DIAGNOSIS: Type II diabetes mellitus with neurological manifestations PVD (peripheral vascular disease) Amputated toe of right foot Personal history of diabetic foot ulcer Callus Onychomycosis Venous ulcer of left lower extremity without varicose veins Ulcer of left lower extremity, limited to breakdown of skin Venous ulcer of right lower extremity without varicose veins Ulcer of right lower extremity, limited to breakdown of skin 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 Diabetic foot ulcer Diabetic leg ulcer Achilles rupture, left 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 Achilles rupture, right Ulcer of left foot with fat layer exposed Skin ulcer of left great toe, limited to breakdown of skin Malnutrition 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 No fractures or dislocations noted. No soft tissue emphysema noted. No osteopenia or sclerosis noted. tibial and fibular sesamoid excised, there is small calcified piece of fibular sesamoid bone noted to plantar lateral 1st met. RT foot amp at MTPJ 1,2,3,4,5. no lytic lesions. no soft tissue gas noted. 08/17/24 Xray left foot: No radiographic presence of OM 08/17/24 Xray tib/fib left leg: No radiographic presence of OM 08/17/24 Xray tib/fib right leg: No radiographic presence of OM 08/17/24 CRP: 13.6 and 08/18/24 ESR: 97 04/05/24 PVR b/l leg: Left MANJEET 0.9 and Right 0.95 08/18/24 Left leg wound culture: Few pseudomonas aeruginosa FINAL 08/18/24 MRI BL LE: 1. No drainable soft tissue abscess or evidence for osteomyelitis 2. Diffuse edema/cellulitis and fatty muscle atrophy with nonspecific myositis. 10/01/24 albumin: 3.3 11/27/24 right achilles wound Cx: MSSA, Streptococcus agalactiae (group b streptococcus) Abnormal , Proteus mirabilis Abnormal NEW LEFT anterior lower leg wound. RIGHT anterior lower leg wound REOPENED. RIGHT lateral lower leg wound REOPENED. RIGHT medial lower leg wound healed. LEFT lateral lower leg ulcer improved. LEFT posterior achilles lower leg ulcer improved. LEFT dorsal lateral foot ulcer stable. LEFT medial ankle ulcer stable. RIGHT posterior achilles lower leg ulcer stable. LEFT medial ankle ulcer, LEFT lateral lower leg ulcer, LEFT anterior lower legulcer, RIGHT lateral lower leg wound, RIGHT anterior lower leg ulcer treated with sharp excisional debridement carried out of the wound with non selective sharp excisional debridement past the dermis into SUBCUTANEOUS level with use of curette and 15 scalpel blade. Devitalized tissue removed. We then flushed out the wound with wound wash sterile saline. Area numbed with lidocaine gel if sensate prior. LEFT dorsal lateral foot ulcer, LEFT posterior achilles lower leg ulcer treated with sharp excisional debridement carried out of the wound with non selective sharp excisional debridement past the dermis into FASCIA and FAT level with use of curette and 15 scalpel blade. Devitalized tissue removed and we then flushed out the wound with wound wash sterile saline. Area numbed with lidocaine gel if sensate prior. RIGHT posterior Achilles lower leg ulcer treated with sharp excisional debridement carried out of the wound with non selective sharp excisional debridement past the dermis into BONE level with use of curette, bone rongeur and 15 scalpel blade. Devitalized tissue removed and we then flushed out the wound with wound wash sterile saline. Area numbed with lidocaine gel if sensate prior. Discussed importance in offloading, proper nutrition including blood sugar control and getting enough protein and vitamins, infection prevention, and proper wound care in wound healing. Also discussed detrimental impact of smoking on healing. Reviewed proper wound care with patient. To not soak wound but to clean appropriately. To watch for signs of infection both local and systemic. These were reviewed with the patient. If seen to contact office or go to ED. To continue wound care consisting of washing the wound with soap and water or vashe solution soaked gauze for 3-5 minutes. Then to apply dressing consisting noted below Cont LEFT wound vac. RIGHT side put on HOLD. Discussed need to fill in the deficit from BL achilles rupture as well as to get coverage over achilles. Discussed wound vac is best option. Discussed would need to fill in wounds a bit more with wound vac before considering grafting. Discussed as bridging away from wound site keeping suction at 175mmHg to best effectively heal area. Discussed with both achilles ruptured she will struggle with push off in gait. Discussed achilles likely ruptured due to chronic ulceration with infections and drying out of tendon. Discussed if we can get her healed she will need AFO to aid in walking. Discussed she is at high risk for BKA BL. Discussed she can weight bear as tolerated. Discussed need assist for activities as she is a high fall risk. Discussed limiting motion at ankle joint to stop tugging on wounds to aid in healing. Discussed need to balance this with maintaining muscle. Discussed need for better nutrition Patient educated on the importance of proper nutrition to help optimize healing. Discussed eating three balanced meals daily and meal preparation. Discussed importance of high protein intake. Discussed supplementation drinks such as ensure, glucerna, nepro, tamiko. Discussed need for blood sugar control, proper vitamin intake whether dietary or through supplementation. Discussed Vitamin C, Multi Vitamin, zinc, and magnesium supplementation. Discussed may need to watch sodium intake as well especially if patient experiences swelling. Offered nutrition referral. Patient taking protein supplement drink BID between meals Discussed with cluster wound noted on right achilles wound with small skin bridge communicated with main wound would recommend going to OR to get rid of the skin bridge so wound vac can work effectively. This will actually allow wound to heal better. Discussed if going to OR would also recommend bone biopsy as wound has been to bone for several weeks. Would also recommend cleaning up left side at same time. Left achilles wound is looking good, would consider putting intregra graft on in OR as well. Discussed we only have [employer] wound vac supplies. Patient to bring own wound vac supplies to give option of replacing vacs after surgery. Discussed is drainage too much or not looking appropriate may do alternative dressing and/or have nursing reapply vac. Patient had all questions answered. Patient agrees to move forward with surgical option. Plan for Wednesday surgery. Can go to [facility] prior to surgery. Described the procedure at length. Discussed at length the risks, benefits, alternatives, and complications including but not limited to infection, delayed healing, nonhealing, recurrence, and need for further surgery. Patient understood and all questions were answered to patient satisfaction. Discussed post operative care plan at length including but not limited to length of recovery and physical limitations during recovery. Patient agreed to proceed. Patient went to PAT 11/30/24 and was not given clearance for surgery. Patient needs to hold Jardiance 3 days prior and need cardiac clearance and to have labs checked. She is scheduled for cardiac work up 12/14/24. Will tentatively plan surgery for 12/15/24 knowing that if she doesn't gain cardiac clearance we would need to delay again. Cx reviewed Right achilles wound cont doxy Follow up 1 week for wound check. Will tentatively plan for OR on 12/15/24 after cardiac testing on 12/14/24 and to get lab work drawn prior as well. All changes to wound vac settings and wound care must be cleared through Dr. Pickard prior to any changes being made. The pressure must remain at 175 due to the amount of tracking that must be done for the wounds Clear vac drape to all skin where foam will be placed. It is imperative to have all skin covered with clear drape where the black foam will be placed as there are new wounds where the black foam was placed directly on the patient's skin PLEASE ATTEMPT TO FEED THE PATIENT A DIABETIC DIET Diabetic Premiere Protein Shakes 2 x daily between meals May ambulate with Assistance Physical Therapy to assess what level of aid the patient needs to ambulate with assistance Patient may bear weight 1. Wash your hands with soap and water before and after wound care. 2. Gather all supplies needed. 3. Clean bilateral lower legs and feet with Dial Soap and Water. After removing the old dressings, the bilateral lower legs and feet MUST be cleaned with Dial Soap and Water prior to using Vashe' or Dakins and applying any new dressings. Do not get the wounds wet in the shower. 4. Take a clean 4x4 gauze and moisten with a few drops of Vashe (blue bottle) or Dakins and allow to soak for 5-10 minutes, then remove and pat dry. Right Anterior, medial, lateral Lower leg wounds - Cleanse wound with Dakins moistened gauze. Allow to soak for 5-10 min. -Apply Adaptic -Cover with Drawtex/ABD pad -Secure with kerlix and tape and change daily Right Achilles/heel (Holding Wound Vac on right leg since 11/27/2024) - Cleanse wound with Dakins moistened gauze. Allow to soak for 5-10 min. - Apply Mesalt packing to the original tunnel now connecting to the new distal wound. Pack the the tendon exposed area of the achilles with Mesalt. - Apply Endoform (bumpy side down) to the proximal (well granulated) achilles wound OR may use Triple Mulino collagen sheet (provided to patient) - Apply Urgotol Ag OR Adaptic on top of the endoform - Place ABD pad over achilles and Heel cup ABD on heel. - Wrap with Kerlix and secure with tape. - Change dressing daily and as needed to maintain a clean dry dressing. Left medial Ankle, Left anterior lower leg, Left Lateral Lower leg: - Apply to the wound base: Adaptic - Cover with: drawtex, clear VAC drape - Change your dressing: M-W-F and as needed to keep clean and dry - Secure with olegario wrap from behind the toes to 1 below the knee - OLEGARIO WRAPS ARE NOT FOR COMPRESSION - THEY ARE ONLY TO HELP KEEP DRESSINGS IN PLACE Left Achilles Alternate Dressing if the wound VAC fails: - Apply to the wound base: dakins moistened gauze packed in to the wound bed - Cover with: drawtex, 4x4's, abd pads - Secure dressing with: conform or kerlix wrap. tape - Change your dressing: Daily and as needed to keep clean and dry - Secure with olegario wrap from behind the toes to 1 below the knee - OLEGARIO WRAPS ARE NOT FOR COMPRESSION - THEY ARE ONLY TO HELP KEEP DRESSINGS IN PLACE Please apply a wound vac dressing on left achilles wound & dorsal/lateral left foot wound: KCL Recommended Settings: 175 mmHg, continuous Intensity High Continuous suction Wound Vac: Skin prep to naya-wound Duoderm to naya-wound of all wounds Eaken seal around the wound edge of each wound Apply Acticoat to the entire wound base all wounds Clear vac drape to all skin where foam will be placed and for bridged areas: It is imperative to have all skin covered with clear drape where the black foam will be placed. Black foam to wound bed - be sure to not over pack wounds with foam Track pad to be placed avoiding all bony prominence Pad and protect skin from tubing at all times using ABD pads between patient's skin and VAC tubing Change dressing 3 x weekly and as needed to keep clean and dry Apply a loose olegario wrap to secure dressings Type II diabetes mellitus with neurological manifestations 250.60 E11.49 Diagnosis Notes Drag & Drop to change diagnosis order PVD (peripheral vascular disease) 443.9 I73.9 Diagnosis Notes Drag & Drop to change diagnosis order Amputated toe of right foot 895.0 S98.131A Diagnosis Notes Drag & Drop to change diagnosis order Personal history of diabetic foot ulcer V12.29 Z86.31 Diagnosis Notes Drag & Drop to change diagnosis order Callus 700 L84 Diagnosis Notes Drag & Drop to change diagnosis order Onychomycosis 110.1 B35.1 Diagnosis Notes Drag & Drop to change diagnosis order Venous ulcer of left lower extremity without varicose veins 459.81 I87.2 Diagnosis Notes Drag & Drop to change diagnosis order Ulcer of left lower extremity, limited to breakdown of skin 707.10 L97.921 Diagnosis Notes Drag & Drop to change diagnosis order Venous ulcer of right lower extremity without varicose veins 459.81 I87.2 Diagnosis Notes Drag & Drop to change diagnosis order Ulcer of right lower extremity, limited to breakdown of skin 707.10 L97.911 Diagnosis Notes Drag & Drop to change diagnosis order 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 707.13 L97.323 Diagnosis Notes Drag & Drop to change diagnosis order Diabetic foot ulcer 250.80 E11.621 Diagnosis Notes Drag & Drop to change diagnosis order Diabetic leg ulcer 250.80 E11.622 Diagnosis Notes Drag & Drop to change diagnosis order Achilles rupture, left 845.09 S86.012A Diagnosis Notes Drag & Drop to change diagnosis order 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 707.13 L97.312 Diagnosis Notes Drag & Drop to change diagnosis order Achilles rupture, right 845.09 S86.011A Diagnosis Notes Drag & Drop to change diagnosis order Ulcer of left foot with fat layer exposed 707.15 L97.522 Diagnosis Notes Drag & Drop to change diagnosis order Skin ulcer of left great toe, limited to breakdown of skin 707.15 L97.521 Diagnosis Notes Drag & Drop to change diagnosis order Malnutrition 263.9 E46 Diagnosis Notes Drag & Drop to change diagnosis order 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 Nursing Documentation Pertinent Medical History: DM2, HTN, venous insufficiency, & heart failure Wound Etiology according to patient: wounds started February 2024 Pt had right great toe amputation June 18, 2023 Patient arrived via: Ambulatory with cane Home Care Company/Nursing Facility: [facility] Consent captured for debridement per Hu Pickard DPM and good until April 2025 Anticoagulant Therapy: ASA 81mg ACTIVE CARE PER PROVIDER: Hu Pickard DPM Application Dates: Grafts are complete 01/07/2023 Apligraf 01/15/2023 Apligraf 01/21/2023 Apligraf 01/27/2023 Apligraf 02/04/2023 Apligraf Wounds 1-38 previously closed 40 closed 44 closed 47 Closed WOUND # 45 - LOCATION: Right Anterior Lateral Lower Leg Cluster - (08/17/24 ) - closed 11/10/24, closed 11/24/24 WOUND #50 LOCATION: Left dorsal foot/anterior ankle (NEW 11/17/24) closed 11/24/24, closed 12/01/24 WOUND # 51 LOCATION: Right anterior-medial ankle (NEW 11/17/24) closed 11/24/24, 12/01/24 closed WOUND ASSESSMENT: Refer to Provider's Wound Assessment Note VASCULAR ASSESSMENT BY PROVIDER: See provider wound assessment note CHF History: Yes as of February 2022, Dr. Sadler in Cardiology EDEMA: Right Foot: generalized brawny Right ankle: generalized brawny Right Calf: 1+ Left Foot: generalized brawny Left ankle: generalized brawny Left Calf: 1+ MEASUREMENTS: in CM Right Calf: 34.0 Right Ankle: 23.2 Left Calf: 32.5 Left Ankle: 23.3 Length: 43.0 not measured at visit WOUND PHOTOGRAPHY: NO (date taken 11/27/24) DEBRIDEMENT PROCEDURE BY PROVIDER: Anesthetic Used: n/a Other procedure: N/A Specimen collected: N/A WOUND TREATMENT PER MD ORDER: Wounds cleansed by mechanical debridement to allow provider to visualize wound base 07/05/24: Patient reports wosening heart failure; states she has a lot more swelling in the legs and has had trouble breathing when trying to lay in bed to sleep; weight today = 247lbs (up almost 25lbs since 2023). Message sent to Ayan Wallis CNP with heart failure clinic. Patient states she has been speaking to Ayan via telephone regarding weight gain. 07/26/24: Pt with increased pain, drainage, redness noted to bilateral lower legs. New wounds present on bilateral lower legs. Pt stated that she did not come to appointment last week with Dr. Reyes due to not feeling well, stated that her legs were giving her issues. Discussed with pt the importance of not waiting to be seen if her Dr. Reyes would like pt to go to the ER. LEFT LOWER LEG WOUNDS *Silicone Allergy WOUND # 41 - LOCATION: Left Medial Ankle (NEW 07/26/24 L: 0.5 cm x W: 0.7 cm x D: 0.1 cm WOUND # 46 LOCATION: Left Lateral Lower Leg (NEW 10/12/24)) L: 1.0 cm x W: 0.6 cm x D: 0.1 cm Cleansed with: Dial soap and water, Dakins Applied to naya-wound skin:skin prep Applied to wound bed: adaptic, drawtex Covered and secured with: Clear VAC drape ABD pads, kerlix Secure with olegario wrap from behind the toes to 1 below the knee Lose to only secure the dressings - - - - - - - - - - - - - - - - - - - - - - - - - - - - - - - - - - - - - - - - - - - - - - - - - - - - - - - - - - - - - - - - - - - - - - - - WOUND # 39 LOCATION: Right Achilles Clutster (Hold Vac 11/27/2024 on right side only) L: 9.5 cm x W: 4.0 cm x D: 1.3 cm - Tendon exposed Tunnel: in cm 0600: 3.9 to bone Undermining: in cm 2.0 cm towards 0700 Cleansed with: Dakins Applied to naya-wound skin:skin prep Applied to wound bed: Proximal achilles-Endoform to the granulated area (bumpy side down) Distal achilles-mesalt packing to original tunnel (connecting) Provigentl Ag to on top of everything Drawtex, drymax, ABD pad, heel cup, Kerlix, tape. Secure with gentle olegario wrap from behind the toes to 1 below the knee WOUND VAC WOUNDS: 42 & 43 WOUND # 42 - LOCATION: Left Achilles (NEW 07/26/24) L: 9.0 cm x W: 3.8 cm x D: 0.7 cm - Tendon exposed WOUND # 43 - LOCATION: Left Dorsal / Lateral Foot -(NEW 07/26/24 L: 1.0 cm x W: 0.4 cm x D: 0.2 cm Cleansed with: Dial soap and water/ Dakins Applied to naya-wound skin:skin prep, duoderm, saul seal Applied to wound bed: acticoat, black foam Covered and secured with: drape, track pad, ABD pads, Kerlix, & Tape Secure with gentle olegario wrap from behind the toes to 1 below the knee WOUND # 49 LOCATION: Left anterior lower leg - (new 11/10/24) 11/17/24 closed, but fragile L: 0.5 cm x W: 0.5 cm x D: 0.1 cm Cleansed with: Dial soap and water/Dakins Applied to naya-wound skin:skin prep Applied to wound bed: adaptic, drawtex Covered and secured with: VAC drape Secure with ABD pads, kerlix - - - - - - - - - - - - - - - - - - - - - - - - - - - - - - - - - - - - - - - - - - - - - - - - - - - - - - - - - - - - - - - - - - - - - - - - RIGHT LOWER LEG WOUNDS WOUND # 48 LOCATION: Right medial lower leg cluster - new 11/10/24 12/01/24 closed WOUND #52 LOCATION: Right anterior lower leg (NEW 11/17/24) closed 11/24/24, 12/01/24 re-opened L: 6.0 cm x W: 2.8 cm x D: 0.1 cm WOUND #53 LOCATION: Right lateral lower leg (NEW 11/17/24) closed 11/24/24, 12/01/24 re-opened L: 2.0 cm x W: 0.6 cm x D: 0.1 cm Cleansed with: Dial soap and water/Dakins Applied to naya-wound skin:skin prep Applied to wound bed: adaptic Covered and secured with: gazue Secure with ABD pads, kerlix AOC: Right medial Foot maceration: 12/01/24 resolved Right medial leg blister cluster: 12/01/24 resolved COMPRESSION: NO COMPRESSION. Gentle olegario wraps only to secure dressings SPECIAL NEEDS: Coordination of care - AVS faxed to [facility] Emotional support N/A OR set-up N/A Yarn Examiner N/A Incontinence needs N/A [employer] company: ordered 03/01/24 Farrow wraps, Supplies ordered 06/07/2024 x 30 days with 2 refills DISCHARGED in stable condition to: back to [facility] with transport PLAN/ORDERS: Follow-up in the Wound Center with Dr Pickard once a week: 12/08/24 @ 10:30am Continue aggressive nutritional support to assist wound healing, focusing on increasing protein intake, keeping blood sugars stable/controlled Blood sugars must be kept below 150 for wound healing Patient is a High Fall Risk due - UP WITH ASSIST ONLY HAVE PATIENT ATTEMPT CHAIR YOGA EXERCISES - LIMITED ANKLE MOVEMENT WEIGHT BEARING TOLERATED Please give patient premiere diabetic protein shakes 2 x daily between meals. Plan is to go to operating room Wednesday12/15/2024 if cleared by cardiology. Time to be determined. OTHER EDUCATION: Dr. Pickard discussed delayed surgery until patient is cleared by cardiology; will tentatively plan for 12/15/24. Education performed regarding lymphedema/edema: n/a Elevation of extremity above the heart for 30 minutes three times daily and as needed Exercise such as writing the ABC's with your toes in the air, walking and/or calf pumps Wearing compression as ordered by provider Diet controlling of sodium as instructed by provider Use of medication to help control edema. UNIVERSAL PROTOCOL / SAFETY CHECKLIST Procedure to be Performed sharp debridement of Bilateral Lower Legs Sign In: 1048 A Moment of CARE was completed. Personnel directly involved with the procedure wore the appropriate PPE (Personal Protective Equipment). Patient/Surrogate Stated/Verified: PATIENT VERIFIED(optional for EMERGENT procedures): Patient name, Date of , Relevant allergies, and The intended procedure Time Out Communication: 1048 Intended patient and procedure match the source documents. Consent documented and matches the intended procedure. No relevant labs, photos, and/or imaging studies were applicable for review. Sign Out: 1110 SIGN OUT (optional for EMERGENT procedures): All instruments, equipment, possible retained foreign bodies accounted for. Shelley Kenny RN/richa Current HBOT - examined by Dr. Benitez 12/01/24 documented in this encounter [facility] 12-01-2024 Instructions Shelley Kenny RN - 12/01/2024 10:19 AM EDT WOUND CARE INSTRUCTIONS- Shade Brambila Wound location: Bilateral Lower Legs [facility] HOME: FAX: [phone] All changes to wound vac settings and wound care must be cleared through Dr. Pickard prior to any changes being made. The pressure must remain at 175 due to the amount of tracking that must be done for the wounds Clear vac drape to all skin where foam will be placed. It is imperative to have all skin covered with clear drape where the black foam will be placed as there are new wounds where the black foam was placed directly on the patient's skin PLEASE ATTEMPT TO FEED THE PATIENT A DIABETIC DIET Diabetic Premiere Protein Shakes 2 x daily between meals May ambulate with Assistance Physical Therapy to assess what level of aid the patient needs to ambulate with assistance Patient may bear weight 1. Wash your hands with soap and water before and after wound care. 2. Gather all supplies needed. 3. Clean bilateral lower legs and feet with Dial Soap and Water. After removing the old dressings, the bilateral lower legs and feet MUST be cleaned with Dial Soap and Water prior to using Vashe' or Dakins and applying any new dressings. Do not get the wounds wet in the shower. 4. Take a clean 4x4 gauze and moisten with a few drops of Vashe (blue bottle) or Dakins and allow to soak for 5-10 minutes, then remove and pat dry. Right Anterior, medial, lateral Lower leg wounds - Cleanse wound with Dakins moistened gauze. Allow to soak for 5-10 min. -Apply Adaptic -Cover with Drawtex/ABD pad -Secure with kerlix and tape and change daily Right Achilles/heel (Holding Wound Vac on right leg since 11/27/2024) - Cleanse wound with Dakins moistened gauze. Allow to soak for 5-10 min. - Apply Mesalt packing to the original tunnel now connecting to the new distal wound. Pack the the tendon exposed area of the achilles with Mesalt. - Apply Endoform (bumpy side down) to the proximal (well granulated) achilles wound OR may use Triple Mulino collagen sheet (provided to patient) - Apply Urgotol Ag OR Adaptic on top of the endoform - Place ABD pad over achilles and Heel cup ABD on heel. - Wrap with Kerlix and secure with tape. - Change dressing daily and as needed to maintain a clean dry dressing. Left medial Ankle, Left anterior lower leg, Left Lateral Lower leg: - Apply to the wound base: Adaptic - Cover with: drawtex, clear VAC drape - Change your dressing: M-W-F and as needed to keep clean and dry - Secure with olegario wrap from behind the toes to 1 below the knee - OLEGARIO WRAPS ARE NOT FOR COMPRESSION - THEY ARE ONLY TO HELP KEEP DRESSINGS IN PLACE Left Achilles Alternate Dressing if the wound VAC fails: - Apply to the wound base: dakins moistened gauze packed in to the wound bed - Cover with: drawtex, 4x4's, abd pads - Secure dressing with: conform or kerlix wrap. tape - Change your dressing: Daily and as needed to keep clean and dry - Secure with olegario wrap from behind the toes to 1 below the knee - OLEGARIO WRAPS ARE NOT FOR COMPRESSION - THEY ARE ONLY TO HELP KEEP DRESSINGS IN PLACE Please apply a wound vac dressing on left achilles wound & dorsal/lateral left foot wound: KCL Recommended Settings: 175 mmHg, continuous Intensity High Continuous suction Wound Vac: Skin prep to naya-wound Duoderm to naya-wound of all wounds Eaken seal around the wound edge of each wound Apply Acticoat to the entire wound base all wounds Clear vac drape to all skin where foam will be placed and for bridged areas: It is imperative to have all skin covered with clear drape where the black foam will be placed. Black foam to wound bed - be sure to not over pack wounds with foam Track pad to be placed avoiding all bony prominence Pad and protect skin from tubing at all times using ABD pads between patient's skin and VAC tubing Change dressing 3 x weekly and as needed to keep clean and dry Apply a loose olegario wrap to secure dressings - Avoid sitting with legs in a dependent position or standing for long periods of time. - Attempt to lay flat and elevate your legs above the level of your heart 2-3 times daily, for 30 minutes at a time. - Be sure to continue walking and/or calf pumps and exercises to mimic writing the alphabet with your foot, as instructed Foot care Many people with diabetes lose the feeling in their feet (neuropathy). Therefore, they might not know they have an injury that can lead to serious problems, such as foot removal (amputation). By taking care of your feet, most serious problems can be prevented. If you have problems checking your own feet, have a family member or friend help you. Easy steps to protect your feet: Check your feet every day for: dry or cracked skin, cuts, open sores, blisters, redness, swelling, corns, calluses, or toenail problems. Use a mirror if necessary. Report any problems to your doctor. Keep your feet clean and dry, especially between the toes. If your feet are dry or cracked use a moisturizing lotion at least daily but never between the toes. See your judicial clerk every three months for foot and nail care. Don't go barefoot. Wear shoes or slippers at all times. Wear comfortable shoes that fit well. Check inside your shoes for foreign objects or rough spots before putting on shoes. Always wear socks. Avoid using anything hot, such as heating pads, hot water bottles, hot tubs, or bath water. Check the temperature of bath water with your elbow not your foot. Take your shoes and socks off at every office visit to remind your doctor to check your feet. Also, never tape a dressing directly to the skin on your legs or feet. Instead, use a self-adherent bandage to avoid injuring the skin on your lower extremities If calluses form they can cause wound ulcers to appear under the callus, must be seen by [employer] every three months to prevent. Maintain controlled blood sugar, if blood sugar is consistently above 200 this can delay wound healing and aggravate neuropathy. To give your wound the best chance to heal: - Eat three balanced meals daily focusing on the protein - Control your blood sugar. Keep blood sugar less than 200 - Complete your wound care instructions as ordered - Vitamin C 500 mg twice daily - Multiple Vitamin Daily - Drink a protein shake daily - Premiere Clear or Glucerna for Diabetic patients, Nepro for renal patients and premiere for non-renal and non-diabetic patients Report any of the following signs and symptoms of infection to the Wound Center at [phone] or go to the Emergency Department: Fever or chills Increased drainage Green or yellow drainage Foul odor Increased pain Hardness around the wound Redness, warmth or swelling of the surrounding tissue Color change to the wound Evenings / Weekends / Holidays If you call the wound center at the phone number provided above, please leave a detailed message that includes your full name, birthday, and phone number. We are seeing patients during the day, so we will return your call within a 24-48 hr period in the order your call was received. There is not an on-call provider assigned to the wound center. If you have an emergency that needs to be addressed, please go to an Urgent Care or Emergency Room. Thank you for your cooperation and understanding. If you are feeling ill, please call to reschedule your appointment. If you believe your illness to be wound related, call and leave a message using the directions above describing your symptoms. If you cannot wait 24-48 hrs for a callback, please get evaluated in the nearest emergency department. PLAN/ORDERS: Follow-up in the Wound Center with Dr Pickard once a week: 12/08/24 @ 10:30am Continue aggressive nutritional support to assist wound healing, focusing on increasing protein intake, keeping blood sugars stable/controlled Blood sugars must be kept below 150 for wound healing Patient is a High Fall Risk due - UP WITH ASSIST ONLY HAVE PATIENT ATTEMPT CHAIR YOGA EXERCISES - LIMITED ANKLE MOVEMENT WEIGHT BEARING TOLERATED Please give patient premiere diabetic protein shakes 2 x daily between meals. Plan is to go to operating room Wednesday12/15/2024 if cleared by cardiology. Time to be determined. Hu Pickard DPM/tr/aa WOUND # 41 - LOCATION: Left Medial Ankle (NEW 07/26/24 L: 0.5 cm x W: 0.7 cm x D: 0.1 cm WOUND # 46 LOCATION: Left Lateral Lower Leg (NEW 10/12/24)) L: 1.0 cm x W: 0.6 cm x D: 0.1 cm WOUND # 48 LOCATION: Right medial lower leg cluster - new 11/10/24 12/01/24 closed WOUND # 49 LOCATION: Left anterior lower leg - (new 11/10/24) 11/17/24 closed, but fragile L: 0.5 cm x W: 0.5 cm x D: 0.1 cm WOUND #52 LOCATION: Right anterior lower leg (NEW 11/17/24) closed 11/24/24, 12/01/24 re-opened L: 6.0 cm x W: 2.8 cm x D: 0.1 cm WOUND #53 LOCATION: Right lateral lower leg (NEW 11/17/24) closed 11/24/24, 12/01/24 re-opened L:2.0 cm x W: 0.6 cm x D: 0.1 cm WOUND #54 LOCATION: Right medial leg (NEW 12/01/24 was previously a blister) 12/01/24 resolved WOUND # 39 LOCATION: Right Achilles L: 9.5 cm x W: 4.0 cm x D: 1.3 cm - Tendon exposed Tunnel @ 0600: 3.9 cm to bone Undermining @ 0700 = 2.0 WOUND VAC WOUNDS: Wounds 42 & 43 WOUND # 42 - LOCATION: Left Achilles (NEW 07/26/24) L: 9.0 cm x W: 3.8 cm x D: 0.7 cm - Tendon exposed WOUND # 43 - LOCATION: Left Dorsal / Lateral Foot -(NEW 07/26/24 L:1.0 cm x W:0.4 cm x D:0.2 cm documented in this encounter [facility] 12-01-2024 Note [facility] 11-30-2024 History and physical note Images from the original note were not included. [facility] HISTORY AND PHYSICAL EXAMINATION SERVICE DATE: 11/30/2024 SERVICE TIME: 2:59 PM PRIMARY CARE PHYSICIAN: No primary care provider on file. Assessment Patient has the following medical conditions which may affect naya-operative course: Depression Assessment: Mood stable, compliant on rx. Follows PCP. NELLY (obstructive sleep apnea) Assessment: Has not started using device. Office Visit with Rodo Medrano APRN.HEEL CURVER (09/13/2023) Mixed hyperlipidemia Assessment: Compliant on statin therapy. Encouraged lifestyle modifications. Body mass index is 29.33 kg/m . Primary hypertension Assessment: Stable and compliant with medications. Follows with PCP. Last 3 Encounter BP Readings: Date: BP: 11/30/2024 125/39 11/27/2024 109/63 11/24/2024 136/72 Type 2 diabetes mellitus with proliferative retinopathy, with long-term current use of insulin (HCC) Assessment: Reports compliance to medication. Reports fasting BS checks ranging in the 130s Encouraged lifestyle modifications. Follows Endocrinology. Hemoglobin A1C (%) Date Value 07/05/2024 8.8 03/13/2024 9.8 02/04/2021 11.1 Hemoglobin A1c (%) Date Value 08/11/2013 7.0 05/03/2013 11.1 Hemoglobin A1C (POCT) (%) Date Value 10/25/2024 7.4 06/14/2023 7.9 Office Visit with Giovanni Cerrato MD (10/25/2024) Chronic heart failure with preserved ejection fraction (HCC) Assessment: Follows Cardiology. Compliant on medications. Denies new or worsening cardiac symptoms. Recent Results (from the past 4464 hours) ECHO Collection Time: 07/28/24 1:24 PM Impression CONCLUSIONS: - Exam indication: Heart failure - The left ventricle is normal in size. Left ventricular systolic function is mildly decreased. EF = 50 5% (visual est.). Definity contrast used for endocardial border detection. Grade II left ventricular diastolic dysfunction. - The right ventricle is mildly dilated. Right ventricular systolic function is normal. - The right atrial cavity is moderately dilated. - There is mild (1+) mitral valve regurgitation. - Mild to moderate (1-2+) tricuspid valve regurgitation. - Estimated right ventricular systolic pressure is 56 mmHg consistent with moderate pulmonary hypertension. Estimated right atrial pressure is 15 mmHg based on IVC assessment. - Wall motion abnormalities as above. - Exam was compared with the prior OUTSIDE echocardiographic exam performed on 02/19/22. Compared to prior report, left ventricular function has declined with new wall motion abnormalities and estimated RVSP is higher. * * * Final * * * Office Visit with Shanel Newell APRN.CNP (11/17/2024) BMI 29.0-29.9,adult Assessment: Body mass index is 29.33 kg/m . History of TIA (transient ischemic attack) Assessment: Patient reports this happened in August of 2020. Had symptoms of double vision.ANESTHESIA FINDINGS: Intubation History: No history of difficult intubation. No abnormal airway history Significant Anesthesia Considerations: none Airway History: No history of difficult airway No abnormal airway history [place] Activity Status Index: METS: Walk indoors, such as around the house (1.75 METs) Do light work around the house, such as dusting or washing dishes (2.70 METs) Take care of self; that is eating, dressing, bathing, using the toilet (2.75 METs) DASI Score: 7.2 Patient denies any chest pain or undue shortness of breath with the above physical activity. Patient is limited most or all of the time (uses scooter, mobility device) (+ wheelchair). Clinical Frailty Scale: 3. Well, with treated comorbid disease STOP-Bang Score: STOP-Bang Score: (+ nelly) I - PHYSICAL EVALUATION AIRWAY Patient intubated: No. Tracheostomy tube not present Mallampati: II. TM distance: >3 FB. Neck ROM: full ROM without neurological symptoms. Mouth opening: adequate. Short neck: no. Thick neck: no DENTAL Dental findings: teeth intact and missing tooth/teeth. II - ANESTHESIA PLAN Anesthetic plan additional comments: *PACC/TCI - anesthesia choice. Beta Everette Monitoring Plan Post Procedure Analgesic Plan Prepared for Surgery: NOT optimally prepared for surgery. Patient did not hold Jardiance for 3 days prior to procedure. Patient needs labs checked prior to procedure. Patient requires cardiac optimization. CONSULTS: The following consults have been initiated at this time: cardiology. Planned Anesthetic: anesthesia choice The Following Tests/Procedures Have Been Initiated: Orders Placed This Encounter polyethylene glycol 3350 (MIRALAX) 17 gram packet Sig: Take 17 g by mouth once daily. Dissolve dose in 4 - 8 ounces of liquid and take as directed. REASON FOR VISIT: Shade Brambila is a 64 year old female who is scheduled for * No surgery found * at the request of Dr. Hu Pickard for consultation. My final recommendation will be communicated back to the requesting physician by way of shared medical record or letter. Subjective The patient has the following: COVID-19 Immunization Status Current Care Gaps Covid-19 Vaccine ( season) Never done 07/15/2022 Postponed until 07/15/2023 by Porsche Murillo LPN (Declined at this time) CHIEF COMPLAINT: pre op HPI: Patient is a 64 year old female scheduled for pre anesthesia consultation for procedure. Patient c/o LLE wound for about a year. Reports numbness and tingling. Has tried conservative methods with little relief. Patient denies other specific radiating, alleviating, or aggravating factors. REVIEW OF SYSTEMS: General: No weight loss, malaise or fevers. Neurological: Positive for: TIA. Negative for: delirium, dementia, headaches, impaired sensorium, peripheral neuropathy, seizures and strokes. Respiratory: Positive for: obstructive sleep apnea and CPAP/BiPAP noncompliant. Negative for: asthma, bronchitis, COPD, current cough, bronchodilator used daily for the last 3 months, dyspnea, home oxygen, orthopnea, pneumonia within 6 weeks, tobacco use and URI < 2 weeks. Cardiovascular: + pad Positive for: CHF, hyperlipidemia and hypertension Negative for: abdominal aortic aneurysm, AICD/PPM, angina, anticoagulation therapy, arrhythmia, atrial fibrillation, CAD, chest pain, congenital heart defect, DVT/PE, recent MD, murmur/valvular heart disease, PTCA, PVD, open heart surgery and valve surgery. GI: Negative for: abdominal pain, GERD, GI bleed <30 days, hepatitis, liver disease, nausea, vomiting and ETOH >2 drinks/day. : denies CKD Negative for: on dialysis, dysuria, flank pain, frequent urination, hematuria, renal failure and urinary tract infection. Endocrine: Positive for: diabetes mellitus and diabetic neuropathy. Patient's diabetes mellitus is controlled by insulin and oral agents. Negative for: hyperthyroidism and hypothyroidism. Hematology: Positive for: anemia and iron deficiency anemia. Negative for: bruises/bleeds easily, factor V Leiden, hemophilia, thrombocytopenia, von Willebrand disease, transfusion of at least 4 units within 72 hours prior to surgery and chronic anti-coagulation/platelet meds. Oncology: + h/o uterine cancer Negative for: CA metastasis, chemo within 30 days, disseminated cancer and radiotherapy within 90 days. Psych: Positive for: depression. Musculoskeletal: Negative for joint pain or swelling, back pain or muscle pain. Skin: Negative for lesions, rash and itching. Implanted Devices: No implanted devices. PAST MEDICAL HISTORY Diagnosis Date Charcot left foot due to diabetes mellitus (HCC) 05/2013 subsequent to left foot fracture Chronic ulcer of great toe of right foot (HCC) 06/14/2023 Congestive heart failure (HCC) Depression Diabetes (HCC) Diabetic ulcer of posterior right heel (HCC) 02/06/2020 Endometrial cancer (HCC) Foot fracture, left 05/2013 Charcot neuroarthropathy HTN (hypertension) Obesity NELLY (obstructive sleep apnea) Renal disorder on vasotec to protect kidneys rt diabetes since 1998. Vitamin D deficiency 01/05/2017 PAST SURGICAL HISTORY Procedure Laterality Date AMPUTATION TOE,MT-P JT Right 07/2022 first two twos amuptated AMPUTATION TOE,MT-P JT Right 10/2023 third, fourth and fifth toes DILATION & CURETTAGE DX&/THER NONOBSTETRIC x3 EXTENSIVE HAND SURGERY Dupuytren contracture PAST SURGICAL HISTORY OF 07/2023 half of big toe tooken off TONSILLECTOMY HX TOTAL ABDOM HYSTERECTOMY 08/2023 with BSO FAMILY HISTORY Problem Relation Age of Onset Hypertension Mother other (polycystic kidney disease) Mother Heart Father CHF Hypertension Father Diabetes Brother other (testicular cancer) Brother Coronary Artery Disease Brother MD and at age 45 Cancer Paternal Aunt breast CA other (CHF) Paternal Grandmother Anesthesia Problems No Family History Social History Tobacco Use Smoking status: Never Passive exposure: Never Smokeless tobacco: Never Vaping Use Vaping status: Never Used Substance Use Topics Alcohol use: Not Currently Comment: Occ - 3 glasses of wine a year Drug use: No Prior to Admission medications as of 11/30/24 1400 Medication Sig Last Dose Taking polyethylene glycol 3350 (MIRALAX) 17 gram packet Take 17 g by mouth once daily. Dissolve dose in 4 - 8 ounces of liquid and take as directed. Yes doxycycline hyclate (VIBRAMYCIN) 100 mg capsule Take 1 capsule by mouth two times a day for 7 days. Yes GLUCAGON EMERGENCY KIT, HUMAN, INJECTION by INJECTION(UNSPECIFIED PARENTERAL ROUTES) route. Yes bisacodyl (DULCOLAX) 10 mg supp 10 mg by RECTAL route once daily as needed for constipation. Yes naloxone (NARCAN) 1 mg/mL for intranasal administration 1 mg by INTRANASAL route as needed for known or suspected opioid overdose. Once for opioid overdose may repeat every 2-3 min Yes insulin lispro 100 unit/mL injection Sliding scale- Blood sugar 111-150 Give 0 units 151-200 Give 1 unit 201-250 Give 2 units 251-300 Give 3 units 301-350 Give 4 units 351-400 Give 5 units Greater than 400 Give 5 units and Notify Provider Yes ondansetron (ZOFRAN) 4 mg tablet Take 4 mg by mouth every 8 hours as needed for nausea/vomiting. Yes traMADol (ULTRAM) 50 mg tablet Take 50 mg by mouth every 6 hours as needed for pain. Yes acetaminophen (TYLENOL) 325 mg tablet Take 2 tablets by mouth every 6 hours as needed for fever (specify temp.) or pain (temp >100.1F). Yes empagliflozin (JARDIANCE) 25 mg tablet TAKE 1 TABLET BY MOUTH EVERY DAY WITH BREAKFAST Yes ACCU-CHEK JOSE PLUS TEST STRP test strip USE TO TEST BLOOD GLUCOSE 3 TIMES DAILY Yes enalapril (VASOTEC) 20 mg tablet Take 0.5 tablets by mouth two times a day. Yes atorvastatin (LIPITOR) 80 mg tablet take 1 tablet by mouth every day Yes furosemide (LASIX) 20 mg tablet Take 20 mg by mouth once daily. 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 Yes aspirin, enteric coated (ASPIRIN, ENTERIC COATED) 81 mg EC tablet Take 81 mg by mouth once daily. Yes cyanocobalamin, vitamin B-12, 1,000 mcg/mL kit 1,000 mcg by INJECTION(UNSPECIFIED PARENTERAL ROUTES) route once every month. Yes Blood Pressure Monitor Please monitor blood pressure 1-2 hours after taking morning medications. Yes FLUoxetine (PROZAC) 40 mg capsule Take by mouth q 24 HR. Yes lancets (ONE TOUCH DELICA) 33 gauge USE TO BLOOD GLUCOSE 3 TIMES DAILY. INSULIN DEPENDENT E11.3299, E11.65, Z79.4 Yes insulin needles, DISPOSABLE, (BD INSULIN PEN NEEDLE UF) 31 gauge x 5/16 FOUR DAILY FOR INSULIN INJECTIONS. Yes Blood-Glucose Meter misc Use to test blood glucose 3 times daily. Insulin Dependent E11.3299, E11.65, Z79.4 Yes Cholecalciferol, Vitamin D3, 50 mcg (2,000 unit) cap Take 1 tablet by mouth once daily. Yes Blood-Glucose Sensor (DEXCOM G7 SENSOR) edita For continuous glucose monitoring Blood-Glucose Meter,Continuous (DEXCOM G7 CLAIMS ADJUSTOR) misc For continuous glucose monitoring. sodium phosphate,mono-dibasic (ENEMA RECTAL) by RECTAL route as needed (constipation). may be given daily, if needed Patient not taking: Reported on 11/30/2024 senna-docusate (SENEXON-S) 8.6-50 mg per tablet Take 1 tablet by mouth as needed for constipation. Patient not taking: Reported on 11/30/2024 fluticasone (FLONASE) 50 mcg/actuation nasal spray Use 2 Sprays in each nostril once daily. Patient not taking: Reported on 11/30/2024 senna (SENOKOT) 8.6 mg tab Take 1 tablet by mouth two times a day. Patient not taking: Reported on 11/30/2024 No medication comments found. ALLERGIES Allergen Reactions Amoxicillin Unknown Patient does not remember reaction Silicone Rash, Itching Dressing with silicone border caused inflammation where the bandage was placed Codeine Intolerance Patient states Makes her Hyper Morphine Intolerance Difficulty waking up / groggy Objective PHYSICAL EXAM: General: alert and oriented and healthy appearance. Pertinent negatives noted - not distressed. Skin: normal color, no rash or lesions. HEENT: EOM intact, pupils equal round and pupils reactive to light. Pertinent negatives noted - no carotid bruit. Cardiovascular: regular rate and rhythm, normal S1 and S2, no rub, murmurs, or gallop. Respiratory: normal breath sounds, no wheezes or crackles. No chest wall deformity or tenderness. Abdomen: bowel sounds present and soft. Pertinent negatives noted - not tender. Extremities: Positive for joint tenderness. Pertinent negatives noted - no cellulitis, no clubbing, no deformity, no edema, no joint swelling, no abnormal pulses, no ulcer, no vascular insufficiency and no varicose veins. Neurological: normal cognition and motor skills. Gait normal. No weakness or sensory deficit. PAIN ASSESSMENT: VITALS: BP 118/58 Pulse 76 Temp (Src) 97.4 (Temporal) Resp 16 Ht 5' 8 (1.73m) Wt 192 lb 14.4 oz (87.5kg) SpO2 100% BMI 29.34 kg/(m^2). Diagnostic tests reviewed for today's visit: Lab Value Units Date High Low HB 10.0 g/dL 10/02/2024 15.5 11.5 HCT 32.7 % 10/02/2024 46.0 36.0 WBC 10.29 k/uL 10/02/2024 11.00 3.70 PLT 278 k/uL 10/02/2024 400 150 NA 136 mmol/L 10/02/2024 144 136 K 4.3 mmol/L 10/02/2024 5.1 3.7 GLUC 165 mg/dL 10/02/2024 99 74 BUN 32 mg/dL 10/02/2024 21 7 CREAT 0.79 mg/dL 10/02/2024 0.96 0.58 PTSEC 12.5 sec 08/18/2024 13.0 9.7 INR 1.2 no uni* 08/18/2024 1.3 0.9 APTT 33.7 sec 08/18/2024 32.4 23.0 ALT 16 U/L 10/02/2024 38 7 AST 27 U/L 10/02/2024 35 13 TBILI 0.2 mg/dL 10/02/2024 1.3 0.2 TSH 1.240 mIU/L 07/31/2024 4.200 0.270 Lab Value Units Date High Low HCGQT No results within date range. UHCG No results within date range. HCG, BODY* No results within date range. Lab Value Units Date High Low ABORHD No results within date range. ABSCREEN No results within date range. Hemoglobin A1C (%) Date Value 07/05/2024 8.8 03/13/2024 9.8 10/07/2023 8.3 08/09/2023 9.1 02/05/2023 7.6 09/19/2021 10.3 02/04/2021 11.1 Hemoglobin A1c (%) Date Value 08/11/2013 7.0 05/03/2013 11.1 Hemoglobin A1C (POCT) (%) Date Value 10/25/2024 7.4 06/14/2023 7.9 03/23/2022 10.1 08/12/2020 10.6 02/05/2020 13.3 Recent Results (from the past 8760 hours) ECG COMPLETE Collection Time: 08/21/24 2:46 PM Result Value Ventricular Rate 100 Atrial Rate 100 P-R Interval 184 QRS Duration 98 QT Interval 358 QTC Calculation (Bazett) 461 Calculated P Bernice 36 Calculated R Bernice -45 Calculated T Bernice 91 Impression SINUS RHYTHM WITH PREMATURE ATRIAL COMPLEXES LEFT AXIS DEVIATION MODERATE VOLTAGE CRITERIA FOR LVH, MAY BE NORMAL VARIANT ( R in aVL , Derrick product ) ANTEROLATERAL INFARCT , AGE UNDETERMINED ABNORMAL ECG WHEN COMPARED WITH ECG OF 29-Nov-2023 15:42, PREMATURE VENTRICULAR COMPLEXES ARE NO LONGER PRESENT NONSPECIFIC T WAVE ABNORMALITY NO LONGER EVIDENT IN ANTERIOR LEADS T WAVE INVERSION NOW EVIDENT IN LATERAL LEADS Confirmed by MD SADLER GREGORY () on 08/22/2024 11:39:20 AM Recent Results (from the past 93893 hours) ECHO Collection Time: 07/28/24 1:24 PM Impression CONCLUSIONS: - Exam indication: Heart failure - The left ventricle is normal in size. Left ventricular systolic function is mildly decreased. EF = 50 5% (visual est.). Definity contrast used for endocardial border detection. Grade II left ventricular diastolic dysfunction. - The right ventricle is mildly dilated. Right ventricular systolic function is normal. - The right atrial cavity is moderately dilated. - There is mild (1+) mitral valve regurgitation. - Mild to moderate (1-2+) tricuspid valve regurgitation. - Estimated right ventricular systolic pressure is 56 mmHg consistent with moderate pulmonary hypertension. Estimated right atrial pressure is 15 mmHg based on IVC assessment. - Wall motion abnormalities as above. - Exam was compared with the prior OUTSIDE echocardiographic exam performed on 02/19/22. Compared to prior report, left ventricular function has declined with new wall motion abnormalities and estimated RVSP is higher. * * * Final * * * Instructions Given to Patient: Instructions located in the after visit summary. Patient given verbal and written preop instructions and voices comprehension and compliance. SIGNATURE: Marylou Mcclellan APRN.CNP PATIENT NAME: Shade Brambila DATE: November 30, 2024 TIME: 2:04 PM PAGER/CONTACT #: [facility] 11-30-2024 History and physical note Images from the original note were not included. [facility] HISTORY AND PHYSICAL EXAMINATION SERVICE DATE: 11/30/2024 SERVICE TIME: 2:59 PM PRIMARY CARE PHYSICIAN: No primary care provider on file. Assessment Patient has the following medical conditions which may affect naya-operative course: Depression Assessment: Mood stable, compliant on rx. Follows PCP. NELLY (obstructive sleep apnea) Assessment: Has not started using device. Office Visit with Rodo Medrano APRN.CNP (09/13/2023) Mixed hyperlipidemia Assessment: Compliant on statin therapy. Encouraged lifestyle modifications. Body mass index is 29.33 kg/m . Primary hypertension Assessment: Stable and compliant with medications. Follows with PCP. Last 3 Encounter BP Readings: Date: BP: 11/30/2024 125/39 11/27/2024 109/63 11/24/2024 136/72 Type 2 diabetes mellitus with proliferative retinopathy, with long-term current use of insulin (HCC) Assessment: Reports compliance to medication. Reports fasting BS checks ranging in the 130s Encouraged lifestyle modifications. Follows Endocrinology. Hemoglobin A1C (%) Date Value 07/05/2024 8.8 03/13/2024 9.8 02/04/2021 11.1 Hemoglobin A1c (%) Date Value 08/11/2013 7.0 05/03/2013 11.1 Hemoglobin A1C (POCT) (%) Date Value 10/25/2024 7.4 06/14/2023 7.9 Office Visit with Giovanni Cerrato MD (10/25/2024) Chronic heart failure with preserved ejection fraction (HCC) Assessment: Follows Cardiology. Compliant on medications. Denies new or worsening cardiac symptoms. Recent Results (from the past 4464 hours) ECHO Collection Time: 07/28/24 1:24 PM Impression CONCLUSIONS: - Exam indication: Heart failure - The left ventricle is normal in size. Left ventricular systolic function is mildly decreased. EF = 50 5% (visual est.). Definity contrast used for endocardial border detection. Grade II left ventricular diastolic dysfunction. - The right ventricle is mildly dilated. Right ventricular systolic function is normal. - The right atrial cavity is moderately dilated. - There is mild (1+) mitral valve regurgitation. - Mild to moderate (1-2+) tricuspid valve regurgitation. - Estimated right ventricular systolic pressure is 56 mmHg consistent with moderate pulmonary hypertension. Estimated right atrial pressure is 15 mmHg based on IVC assessment. - Wall motion abnormalities as above. - Exam was compared with the prior OUTSIDE echocardiographic exam performed on 02/19/22. Compared to prior report, left ventricular function has declined with new wall motion abnormalities and estimated RVSP is higher. * * * Final * * * Office Visit with Shanel Newell APRN.[facility] (11/17/2024) BMI 29.0-29.9,adult Assessment: Body mass index is 29.33 kg/m . History of TIA (transient ischemic attack) Assessment: Patient reports this happened in August of 2020. Had symptoms of double vision.ANESTHESIA FINDINGS: Intubation History: No history of difficult intubation. No abnormal airway history Significant Anesthesia Considerations: none Airway History: No history of difficult airway No abnormal airway history [place] Activity Status Index: METS: Walk indoors, such as around the house (1.75 METs) Do light work around the house, such as dusting or washing dishes (2.70 METs) Take care of self; that is eating, dressing, bathing, using the toilet (2.75 METs) DASI Score: 7.2 Patient denies any chest pain or undue shortness of breath with the above physical activity. Patient is limited most or all of the time (uses scooter, mobility device) (+ wheelchair). Clinical Frailty Scale: 3. Well, with treated comorbid disease STOP-Bang Score: STOP-Bang Score: (+ nelly) I - PHYSICAL EVALUATION AIRWAY Patient intubated: No. Tracheostomy tube not present Mallampati: II. TM distance: >3 FB. Neck ROM: full ROM without neurological symptoms. Mouth opening: adequate. Short neck: no. Thick neck: no DENTAL Dental findings: teeth intact and missing tooth/teeth. II - ANESTHESIA PLAN Anesthetic plan additional comments: *PACC/TCI - anesthesia choice. Beta [place] Monitoring Plan Post Procedure Analgesic Plan Prepared for Surgery: NOT optimally prepared for surgery. Patient did not hold Jardiance for 3 days prior to procedure. Patient needs labs checked prior to procedure. Patient requires cardiac optimization. CONSULTS: The following consults have been initiated at this time: cardiology. Planned Anesthetic: anesthesia choice The Following Tests/Procedures Have Been Initiated: Orders Placed This Encounter polyethylene glycol 3350 (MIRALAX) 17 gram packet Sig: Take 17 g by mouth once daily. Dissolve dose in 4 - 8 ounces of liquid and take as directed. REASON FOR VISIT: Shade Brambila is a 64 year old female who is scheduled for * No surgery found * at the request of Dr. Hu Pickard for consultation. My final recommendation will be communicated back to the requesting physician by way of shared medical record or letter. Subjective The patient has the following: COVID-19 Immunization Status Current Care Gaps Covid-19 Vaccine () Never done 07/15/2022 Postponed until 07/15/2023 by Porsche Murillo LPN (Declined at this time) CHIEF COMPLAINT: pre op HPI: Patient is a 64 year old female scheduled for pre anesthesia consultation for procedure. Patient c/o LLE wound for about a year. Reports numbness and tingling. Has tried conservative methods with little relief. Patient denies other specific radiating, alleviating, or aggravating factors. REVIEW OF SYSTEMS: General: No weight loss, malaise or fevers. Neurological: Positive for: TIA. Negative for: delirium, dementia, headaches, impaired sensorium, peripheral neuropathy, seizures and strokes. Respiratory: Positive for: obstructive sleep apnea and CPAP/BiPAP noncompliant. Negative for: asthma, bronchitis, COPD, current cough, bronchodilator used daily for the last 3 months, dyspnea, home oxygen, orthopnea, pneumonia within 6 weeks, tobacco use and URI < 2 weeks. Cardiovascular: + pad Positive for: CHF, hyperlipidemia and hypertension Negative for: abdominal aortic aneurysm, AICD/PPM, angina, anticoagulation therapy, arrhythmia, atrial fibrillation, CAD, chest pain, congenital heart defect, DVT/PE, recent MD, murmur/valvular heart disease, PTCA, PVD, open heart surgery and valve surgery. GI: Negative for: abdominal pain, GERD, GI bleed <30 days, hepatitis, liver disease, nausea, vomiting and ETOH >2 drinks/day. : denies CKD Negative for: on dialysis, dysuria, flank pain, frequent urination, hematuria, renal failure and urinary tract infection. Endocrine: Positive for: diabetes mellitus and diabetic neuropathy. Patient's diabetes mellitus is controlled by insulin and oral agents. Negative for: hyperthyroidism and hypothyroidism. Hematology: Positive for: anemia and iron deficiency anemia. Negative for: bruises/bleeds easily, factor V Leiden, hemophilia, thrombocytopenia, von Willebrand disease, transfusion of at least 4 units within 72 hours prior to surgery and chronic anti-coagulation/platelet meds. Oncology: + h/o uterine cancer Negative for: CA metastasis, chemo within 30 days, disseminated cancer and radiotherapy within 90 days. Psych: Positive for: depression. Musculoskeletal: Negative for joint pain or swelling, back pain or muscle pain. Skin: Negative for lesions, rash and itching. Implanted Devices: No implanted devices. PAST MEDICAL HISTORY Diagnosis Date Charcot left foot due to diabetes mellitus (HCC) 05/2013 subsequent to left foot fracture Chronic ulcer of great toe of right foot (HCC) 06/14/2023 Congestive heart failure (HCC) Depression Diabetes (HCC) Diabetic ulcer of posterior right heel (HCC) 02/06/2020 Endometrial cancer (HCC) Foot fracture, left 05/2013 Charcot neuroarthropathy HTN (hypertension) Obesity NELLY (obstructive sleep apnea) Renal disorder on vasotec to protect kidneys rt diabetes since 1998. Vitamin D deficiency 01/05/2017 PAST SURGICAL HISTORY Procedure Laterality Date AMPUTATION TOE,MT-P JT Right 07/2022 first two twos amuptated AMPUTATION TOE,MT-P JT Right 10/2023 third, fourth and fifth toes DILATION & CURETTAGE DX&/THER NONOBSTETRIC x3 EXTENSIVE HAND SURGERY Dupuytren contracture PAST SURGICAL HISTORY OF 07/2023 half of big toe tooken off TONSILLECTOMY HX TOTAL ABDOM HYSTERECTOMY 08/2023 with BSO FAMILY HISTORY Problem Relation Age of Onset Hypertension Mother other (polycystic kidney disease) Mother Heart Father CHF Hypertension Father Diabetes Brother other (testicular cancer) Brother Coronary Artery Disease Brother MD and at age 45 Cancer Paternal Aunt breast CA other (CHF) Paternal Grandmother Anesthesia Problems No Family History Social History Tobacco Use Smoking status: Never Passive exposure: Never Smokeless tobacco: Never Vaping Use Vaping status: Never Used Substance Use Topics Alcohol use: Not Currently Comment: Occ - 3 glasses of wine a year Drug use: No Prior to Admission medications as of 11/30/24 1400 Medication Sig Last Dose Taking polyethylene glycol 3350 (MIRALAX) 17 gram packet Take 17 g by mouth once daily. Dissolve dose in 4 - 8 ounces of liquid and take as directed. Yes doxycycline hyclate (VIBRAMYCIN) 100 mg capsule Take 1 capsule by mouth two times a day for 7 days. Yes GLUCAGON EMERGENCY KIT, HUMAN, INJECTION by INJECTION(UNSPECIFIED PARENTERAL ROUTES) route. Yes bisacodyl (DULCOLAX) 10 mg supp 10 mg by RECTAL route once daily as needed for constipation. Yes naloxone (NARCAN) 1 mg/mL for intranasal administration 1 mg by INTRANASAL route as needed for known or suspected opioid overdose. Once for opioid overdose may repeat every 2-3 min Yes insulin lispro 100 unit/mL injection Sliding scale- Blood sugar 111-150 Give 0 units 151-200 Give 1 unit 201-250 Give 2 units 251-300 Give 3 units 301-350 Give 4 units 351-400 Give 5 units Greater than 400 Give 5 units and Notify Provider Yes ondansetron (ZOFRAN) 4 mg tablet Take 4 mg by mouth every 8 hours as needed for nausea/vomiting. Yes traMADol (ULTRAM) 50 mg tablet Take 50 mg by mouth every 6 hours as needed for pain. Yes acetaminophen (TYLENOL) 325 mg tablet Take 2 tablets by mouth every 6 hours as needed for fever (specify temp.) or pain (temp >100.1F). Yes empagliflozin (JARDIANCE) 25 mg tablet TAKE 1 TABLET BY MOUTH EVERY DAY WITH BREAKFAST Yes ACCU-CHEK JOSE PLUS TEST STRP test strip USE TO TEST BLOOD GLUCOSE 3 TIMES DAILY Yes enalapril (VASOTEC) 20 mg tablet Take 0.5 tablets by mouth two times a day. Yes atorvastatin (LIPITOR) 80 mg tablet take 1 tablet by mouth every day Yes furosemide (LASIX) 20 mg tablet Take 20 mg by mouth once daily. 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 Yes aspirin, enteric coated (ASPIRIN, ENTERIC COATED) 81 mg EC tablet Take 81 mg by mouth once daily. Yes cyanocobalamin, vitamin B-12, 1,000 mcg/mL kit 1,000 mcg by INJECTION(UNSPECIFIED PARENTERAL ROUTES) route once every month. Yes Blood Pressure Monitor Please monitor blood pressure 1-2 hours after taking morning medications. Yes FLUoxetine (PROZAC) 40 mg capsule Take by mouth q 24 HR. Yes lancets (ONE TOUCH DELICA) 33 gauge USE TO BLOOD GLUCOSE 3 TIMES DAILY. INSULIN DEPENDENT E11.3299, E11.65, Z79.4 Yes insulin needles, DISPOSABLE, (BD INSULIN PEN NEEDLE UF) 31 gauge x 5/16 FOUR DAILY FOR INSULIN INJECTIONS. Yes Blood-Glucose Meter misc Use to test blood glucose 3 times daily. Insulin Dependent E11.3299, E11.65, Z79.4 Yes Cholecalciferol, Vitamin D3, 50 mcg (2,000 unit) cap Take 1 tablet by mouth once daily. Yes Blood-Glucose Sensor (DEXCOM G7 SENSOR) edita For continuous glucose monitoring Blood-Glucose Meter,Continuous (DEXCOM G7 CLAIMS ADJUSTOR) misc For continuous glucose monitoring. sodium phosphate,mono-dibasic (ENEMA RECTAL) by RECTAL route as needed (constipation). may be given daily, if needed Patient not taking: Reported on 11/30/2024 senna-docusate (SENEXON-S) 8.6-50 mg per tablet Take 1 tablet by mouth as needed for constipation. Patient not taking: Reported on 11/30/2024 fluticasone (FLONASE) 50 mcg/actuation nasal spray Use 2 Sprays in each nostril once daily. Patient not taking: Reported on 11/30/2024 senna (SENOKOT) 8.6 mg tab Take 1 tablet by mouth two times a day. Patient not taking: Reported on 11/30/2024 No medication comments found. ALLERGIES Allergen Reactions Amoxicillin Unknown Patient does not remember reaction Silicone Rash, Itching Dressing with silicone border caused inflammation where the bandage was placed Codeine Intolerance Patient states Makes her Hyper Morphine Intolerance Difficulty waking up / groggy Objective PHYSICAL EXAM: General: alert and oriented and healthy appearance. Pertinent negatives noted - not distressed. Skin: normal color, no rash or lesions. HEENT: EOM intact, pupils equal round and pupils reactive to light. Pertinent negatives noted - no carotid bruit. Cardiovascular: regular rate and rhythm, normal S1 and S2, no rub, murmurs, or gallop. Respiratory: normal breath sounds, no wheezes or crackles. No chest wall deformity or tenderness. Abdomen: bowel sounds present and soft. Pertinent negatives noted - not tender. Extremities: Positive for joint tenderness. Pertinent negatives noted - no cellulitis, no clubbing, no deformity, no edema, no joint swelling, no abnormal pulses, no ulcer, no vascular insufficiency and no varicose veins. Neurological: normal cognition and motor skills. Gait normal. No weakness or sensory deficit. PAIN ASSESSMENT: VITALS: BP 118/58 Pulse 76 Temp (Src) 97.4 (Temporal) Resp 16 Ht 5' 8 (1.73m) Wt 192 lb 14.4 oz (87.5kg) SpO2 100% BMI 29.34 kg/(m^2). Diagnostic tests reviewed for today's visit: Lab Value Units Date High Low HB 10.0 g/dL 10/02/2024 15.5 11.5 HCT 32.7 % 10/02/2024 46.0 36.0 WBC 10.29 k/uL 10/02/2024 11.00 3.70 PLT 278 k/uL 10/02/2024 400 150 NA 136 mmol/L 10/02/2024 144 136 K 4.3 mmol/L 10/02/2024 5.1 3.7 GLUC 165 mg/dL 10/02/2024 99 74 BUN 32 mg/dL 10/02/2024 21 7 CREAT 0.79 mg/dL 10/02/2024 0.96 0.58 PTSEC 12.5 sec 08/18/2024 13.0 9.7 INR 1.2 no uni* 08/18/2024 1.3 0.9 APTT 33.7 sec 08/18/2024 32.4 23.0 ALT 16 U/L 10/02/2024 38 7 AST 27 U/L 10/02/2024 35 13 TBILI 0.2 mg/dL 10/02/2024 1.3 0.2 TSH 1.240 mIU/L 07/31/2024 4.200 0.270 Lab Value Units Date High Low HCGQT No results within date range. UHCG No results within date range. HCG, BODY* No results within date range. Lab Value Units Date High Low ABORHD No results within date range. ABSCREEN No results within date range. Hemoglobin A1C (%) Date Value 07/05/2024 8.8 03/13/2024 9.8 10/07/2023 8.3 08/09/2023 9.1 02/05/2023 7.6 09/19/2021 10.3 02/04/2021 11.1 Hemoglobin A1c (%) Date Value 08/11/2013 7.0 05/03/2013 11.1 Hemoglobin A1C (POCT) (%) Date Value 10/25/2024 7.4 06/14/2023 7.9 03/23/2022 10.1 08/12/2020 10.6 02/05/2020 13.3 Recent Results (from the past 8760 hours) ECG COMPLETE Collection Time: 08/21/24 2:46 PM Result Value Ventricular Rate 100 Atrial Rate 100 P-R Interval 184 QRS Duration 98 QT Interval 358 QTC Calculation (Bazett) 461 Calculated P Bernice 36 Calculated R Bernice -45 Calculated T Bernice 91 Impression SINUS RHYTHM WITH PREMATURE ATRIAL COMPLEXES LEFT AXIS DEVIATION MODERATE VOLTAGE CRITERIA FOR LVH, MAY BE NORMAL VARIANT ( R in aVL , [place] product ) ANTEROLATERAL INFARCT , AGE UNDETERMINED ABNORMAL ECG WHEN COMPARED WITH ECG OF 29-Nov-2023 15:42, PREMATURE VENTRICULAR COMPLEXES ARE NO LONGER PRESENT NONSPECIFIC T WAVE ABNORMALITY NO LONGER EVIDENT IN ANTERIOR LEADS T WAVE INVERSION NOW EVIDENT IN LATERAL LEADS Confirmed by MD SADLER GREGORY () on 08/22/2024 11:39:20 AM Recent Results (from the past 85180 hours) ECHO Collection Time: 07/28/24 1:24 PM Impression CONCLUSIONS: - Exam indication: Heart failure - The left ventricle is normal in size. Left ventricular systolic function is mildly decreased. EF = 50 5% (visual est.). Definity contrast used for endocardial border detection. Grade II left ventricular diastolic dysfunction. - The right ventricle is mildly dilated. Right ventricular systolic function is normal. - The right atrial cavity is moderately dilated. - There is mild (1+) mitral valve regurgitation. - Mild to moderate (1-2+) tricuspid valve regurgitation. - Estimated right ventricular systolic pressure is 56 mmHg consistent with moderate pulmonary hypertension. Estimated right atrial pressure is 15 mmHg based on IVC assessment. - Wall motion abnormalities as above. - Exam was compared with the prior OUTSIDE echocardiographic exam performed on 02/19/22. Compared to prior report, left ventricular function has declined with new wall motion abnormalities and estimated RVSP is higher. * * * Final * * * Instructions Given to Patient: Instructions located in the after visit summary. Patient given verbal and written preop instructions and voices comprehension and compliance. SIGNATURE: Marylou Mcclellan APRN.CNP PATIENT NAME: Shade Brambila DATE: November 30, 2024 TIME: 2:04 PM PAGER/CONTACT #: documented in this encounter [facility] 11-30-2024 Instructions Marylou Mcclellan APRN.CNP - 11/30/2024 2:02 PM EDT Images from the original note were not included. [facility] PATIENT PREOPERATIVE INSTRUCTIONS Hu Pickard DPM has scheduled you for your procedure at this surgery center: [facility]: [phone] -- [address] [address]. Please read below carefully for your personalized instructions. Arrival Time for Surgery: - The Surgery Center or hospital where you are having surgery will call the afternoon before surgery (or Wednesday for Wednesday surgery) with a scheduled arrival time. - If you have not heard by 4 pm, please contact the surgery center above. Dietary Restrictions: - No solid food after midnight. - You may have 12 ounces of clear liquids (water, clear juices such as apple juice or gatorade, carbonated beverages, clear tea, black coffee, jello) until 2 hours before scheduled arrival at facility. - Do not drink any alcohol after midnight the night before your surgery. - no milk/creamer or other additives like honey - no pulp juices Medications: Unless instructed differently below, stay on all of your medications until your surgery. If you start any new medications after today's visit, please contact your surgeon. Pre-Surgery Med Instructions Medication Instructions polyethylene glycol 3350 (MIRALAX) 17 gram packet Do not take the day of surgery doxycycline hyclate (VIBRAMYCIN) 100 mg capsule Take the day of surgery with a small sip of water bisacodyl (DULCOLAX) 10 mg supp Do not take the day of surgery insulin lispro 100 unit/mL injection Do not take the day of surgery. ondansetron (ZOFRAN) 4 mg tablet Take the day of surgery with a small sip of water traMADol (ULTRAM) 50 mg tablet Take the day of surgery with a small sip of water acetaminophen (TYLENOL) 325 mg tablet Take the day of surgery with a small sip of water empagliflozin (JARDIANCE) 25 mg tablet Stop 3 days before surgery. For example, if the surgery date is 12/01, the last dose would be 11/27. enalapril (VASOTEC) 20 mg tablet Take the day of surgery with a small sip of water atorvastatin (LIPITOR) 80 mg tablet Take the day of surgery with a small sip of water furosemide (LASIX) 20 mg tablet Do not take the day of surgery ascorbic acid (VITAMIN C ORAL) Do not take the day of surgery aspirin, enteric coated (ASPIRIN, ENTERIC COATED) 81 mg EC tablet Stop 7 days before surgery For example, if the surgery date is 12/01, the last dose would be 11/22. cyanocobalamin, vitamin B-12, 1,000 mcg/mL kit Do not take the day of surgery FLUoxetine (PROZAC) 40 mg capsule Take the day of surgery with a small sip of water Cholecalciferol, Vitamin D3, 50 mcg (2,000 unit) cap Take the day of surgery with a small sip of water If you are currently using a [id number] injectable or oral medication for diabetes or weight loss such as Dulaglutide (Trulicity), Exenatide (Byetta, Bydureon), Liraglutide (Victoza, Saxenda), Semaglutide (Ozempic, Wegovy, Rybelsus), or Tirzepatide (Mounjaro), the medicine should be stopped at least 7 days before surgery. These medicines can cause food to remain in your stomach for a very long time and increase the risks from surgery and anesthesia. Not stopping the medication for a long enough time may result in your surgery being rescheduled. If you start any new medications after today's visit, please contact the surgeon's office. Blood Thinning Medications: - Stop NSAIDS (Ibuprofen, Advil, Aleve, Motrin, Celebrex, Mobic, etc.) 7 days before surgery, as directed by your surgeon. - Stop Aspirin 7 days before surgery, as directed by your surgeon. - Stop herbal supplements 7 days before surgery. - You may take Tylenol (Acetaminophen) or any of your pain medications that do not contain aspirin or NSAIDS as needed. Important Reminders: - If you use CPAP/BIPAP, bring the machine with you to the surgery center. - If you are prescribed inhalers for breathing, continue using them. -Please be sure to brush your teeth and you can use mouth wash or rinse your mouth if dry. - Candy, mints, and tobacco products are NOT permitted the morning of surgery. - Hearing aids, dentures and glasses may be worn the morning of surgery. - If you have dentures or partials, please have a case to place them in or leave at home day of surgery. - NO jewelry, body piercings, makeup, hairpins or contacts are to be worn the day of surgery. If you develop symptoms such as a fever, cold, or flu, or have other changes to your health within TWO DAYS of scheduled surgery or the morning of surgery, please contact the surgery center above. Personal Belongings: -Please have photo ID and insurance cards. -If you do not have a copy of advance directives on file with us, please bring a copy with you on the day of surgery. - Leave ALL valuables and money at home or with family members. Please be aware that emergency situations arise, which may delay or change your surgical time. If this happens, we will notify you as soon as possible and regret any inconvenience. If you already have an Advance Directive, please fax a copy to [phone] or email to for it to be added to your chart. If you do not have an Advance Directive, you can find the appropriate form and more information at [email or web address]. We recommend that you complete the Advance Directive form found on the website and bring it with you the day of your surgery. It can be witnessed and scanned into your chart that day. Marylou Mcclellan APRN.HEEL CURVER documented in this encounter [facility] 11-30-2024 Telephone encounter Note Spoke with Jyothi at Dr. Pickard's office to let her know that the pt had taken her jardiance this morning. Per anesthesia, surgery will need to be rescheduled. Thanks, Lauren Carmona LPN [facility] 11-30-2024 Miscellaneous Notes Spoke with Jyothi at Dr. Pickard's office to let her know that the pt had taken her jardiance this morning. Per anesthesia, surgery will need to be rescheduled. Lauren Trinidad LPN documented in this encounter [facility] 11-28-2024 Telephone encounter Note Received phone call from Laine at [facility] [phone] requesting pre-op orders for the patient's surgery planned on 12/01/24. I informed Laine that the patient is scheduled an appointment in the pre-anesthesia care area on 11/30/24 at 1:25pm where those orders will come from. Laine verbalizes understanding and asks if the ASA 81mg should be help now or not. After speaking with Dr. Pickard, I instructed Laine that the ASA 81mg should now be held until after surgery. Laine verbalizes understanding. [facility] 11-28-2024 Miscellaneous Notes Received phone call from Laine at [facility] [phone] requesting pre-op orders for the patient's surgery planned on 12/01/24. I informed Laine that the patient is scheduled an appointment in the pre-anesthesia care area on 11/30/24 at 1:25pm where those orders will come from. Laine verbalizes understanding and asks if the ASA 81mg should be help now or not. After speaking with Dr. Pickard, I instructed Laine that the ASA 81mg should now be held until after surgery. Laine verbalizes understanding. documented in this encounter [facility] 11-28-2024 Telephone encounter Note Attached is RX for the FSL 3 reader and sensor. Please send if appropriate. [facility] 11-28-2024 Miscellaneous Notes Attached is RX for the FSL 3 reader and sensor. Please send if appropriate. Patient is to let us know if she uses the FSL 2 or 3. If we should send to the pharmacy or medical supply company. Will await for a response. documented in this encounter [facility] 11-28-2024 Note [facility] 11-28-2024 History of Presen t illness Narrative Date of Visit: 11/27/2024 Problem list reviewed. CHIEF COMPLAINT: check B/L lower leg wounds and NEW RIGHT wound DM II A1c 7.4 (10/25/24) DLS 02/08/24 ADM 08/17/24 HISTORY OF PRESENT ILLNESS: TODAY Patient presents with NEW concern over right leg wound. No concerns on left so this was not examined. Has regular appointment scheduled Wednesday. Patient relates nurses were changoing the wound vac yesterday and noted NEW blistered area next to right achilles wound with lots of drainage they wanted checked. They were concerned as they thought they saw pus. PREVIOUSLY Patient presents for BL leg wound check. She was admitted 08/17/24 and was DC to [facility] where she is still at. She relates her insurance wouldn't cover it so she is self paying and planning on going to the nonskilled assistive living side soon. She is at [facility]. She was DC on cipro and flagyl which she finished taking. Patient is taking protein drinks on own. She relates the facility isn't good about helping her dietary needs. They have started to give her the protein supplements though. She states pain is a 2/10. She relates she can't feel feet well and gets numbness. Referred by aircraft hydraulic equipment mechanic, Dr. Dasilva. Patient is DM and sees aircraft hydraulic equipment mechanic Denies N/V/F/C/D/SOB/CP/LP. PCN allergy Hx RT 3rd perc flexor tenotomy (07/26/23) HX R great toe amputation 06/18/23, excision tibial and fibular sesamoid, bone biopsy first met head. Right 2nd toe amputation and hallux I&D 10/28/22. Hx s/p RT toe amp 3,4,5 (DOS 10/14/23) DME DM inserts 08/24/23 rx circade wraps 08/14/22 CURRENT MEDICATIONS: oxyCODONE HCl Oral Tablet 5 MG (07/05/2024) Take 1 tablet every 12 hours as needed for 7 day(s) Percocet Oral Tablet 5-325 MG (07/20/2024) Take 1 tablet every 12 hours as needed for 7 day(s) oxyCODONE-Acetaminophen Oral Tablet 5-325 MG (10/28/2022) Ketorolac Tromethamine Ophthalmic Solution 0.5 % (04/26/2023) Accu-Chek Jose Plus In Vitro Strip (09/23/2022) Atorvastatin Calcium Oral Tablet 80 MG (06/13/2023) miSOPROStol Oral Tablet 200 MCG (06/15/2023) TAKE 2 TABLETS BY MOUTH THE DAY PRIOR TO PROCEDURE AT BEDTIME WITH FOOD Fluticasone Propionate Nasal Suspension 50 MCG/ACT (12/15/2022) USE 2 SPRAYS IN EACH NOSTRIL DAILY X1 WEEK,THEN 1 SPRAY IN EACH NOSTRIL DAILY THEREAFTER NEEDED Nitrofurantoin Monohyd Macro Oral Capsule 100 MG (02/08/2023) Fluconazole Oral Tablet 200 MG (03/20/2024) TAKE 1 TABLET EVERY DAY FOR 21 DAYS Bactrim DS Oral Tablet 800-160 MG (06/24/2023) Take 1 tablet twice a day for 10 day(s) Ofloxacin Ophthalmic Solution 0.3 % (03/30/2023) diazePAM Oral Tablet 10 MG (02/19/2022) TAKE 1 TABLET 60 MIN BEFORE TEST Atorvastatin Calcium Oral Tablet 40 MG (11/18/2022) FLUoxetine HCl Oral Capsule 40 MG (01/26/2022) Enalapril Maleate Oral Tablet 10 MG (01/26/2022) TAKE 1 TABLET BY MOUTH EVERY DAY Erythromycin Ophthalmic Ointment 5 MG/GM (02/09/2022) APPLY 1 A SMALL AMOUNT LEFT EYE 4 TIMES A DAY Atorvastatin Calcium Oral Tablet 20 MG (01/26/2022) TAKE 1 TABLET BY MOUTH EVERY DAY Spironolactone Oral Tablet 25 MG (06/15/2023) TAKE 0.5 TABLETS BY MOUTH ONCE DAILY. Jardiance Oral Tablet 25 MG (06/14/2023) TAKE 1 TABLET BY MOUTH EVERY DAY WITH BREAKFAST Furosemide Oral Tablet 40 MG (11/18/2022) HumuLIN R U-500 KwikPen Subcutaneous Solution Pen-injector 500 UNIT/ML (06/14/2023) INJECT 40 UNITS SUBCUTANEOUSLY AT BREAKFAST, 100 UNITS AT LUNCH, 80 UNITS AT SUPPER. metFORMIN HCl Oral Tablet 1000 MG (11/23/2022) TAKE 1 TABLET BY MOUTH TWICE DAILY WITH MEALS. E11.3599 ALLERGIES: Amoxicillin Unknown Band-[place] Surg Dressing Other Bandaging Tape Other PAST MEDICAL HISTORY: Podiatry History remarkable for Foot Numbness, Fungal Nails, Leg or Foot Ulcers. The patient has a past medical history of Arthritis, Depression, DM-Medication Dependent, Poor Circulation. Neuropathy High Cholesterol SURGICAL HISTORY: Hand Tonsils HOSPITALIZATIONS: None Noted SOCIAL HISTORY: Smoking Status: Never smoker; Last Reviewed: 12/08/2023 Alcohol use: social drinker No drug use Social History Reviewed (01/16/2021 11:20:18 AM EST) FAMILY HISTORY: There is a family history of Denial of any knowledge of significant family history. Denial of any knowledge of significant family history Family History Reviewed (01/16/2021 11:20:19 AM EST) REVIEW OF SYSTEMS: Psychologic: Admits to No psych symptoms. Review of systems otherwise negative PHYSICAL EXAMINATION: Vital Signs: Weight 235 lbs; Height 5 ft 8 in; BMI 35.7 11/27/2024 12:52 PM (EST) Temperature 98.6 F; Pulse Rate 100 bpm; Blood Pressure 120 / 80 mm/Hg Vascular Exam: DP pulses of the RIGHT and LEFT foot are +1/4 PT pulses of the RIGHT and LEFT foot are +1/4 CFT is within normal limits, less than 3s to all digits, both feet. Skin temperature from proximal to distal is warm to warm, both feet. BL LE edema Dermatologic Exam: LEFT SIDE NOT EXAMINED TODAY LEFT medial ankle wound measures 0.7x1.0x0.2cm with 70:30 granular fibrotic base, minimal surrounding slough, no surrounding edema and erythema, no purulence expressed, no probe to bone, MILD malodor, moderate serosanginous drainage. Into level of SUBCUTANEOUS tissue. LEFT lateral lower leg wound measures 2.8x0.9x0.2cm with 70:30 granular fibrotic base, surrounding slough, no erythema, no purulence, no probe to bone, MILD malodor, moderate serosanguinous drainage. Into level of SUBCUTANEOUS TISSUE, partial thickness LEFT posterior Achilles lower leg wound measures 10.5x3.0x1.2cm with 85:15 granular fibrotic base, surrounding slough, no surrounding edema and erythema, no purulence expressed, no probe to bone-exposed achilles tendon with complete RUPTURE, MILD malodor, moderate serosanginous drainage. Into level of TENDON. LEFT dorsal lateral foot wound measures 0.5x1.3x0.3cm with 70:30 granular fibrotic base, no surrounding callus, no surrounding edema and erythema, no purulence expressed, no probe to bone-exposed extensor tendon, MILD malodor, moderate serosanginous drainage. Into level of TENDON tissue LEFT dorsal foot/anterior ankle wound and LEFT anterior lower leg wound healed RIGHT posterior Achilles lower leg wound NEWLY a CLUSTER with wounds connecting RIGHT posterior Achilles lower leg cluster wound predebridement measures 9.4x4.8x1.1cm and post debridement measures 9.5x5.0x1.3cm with tunnelling at 6 o'clock for 3.5cm, 60:40 granular fibrotic base, surrounding slough, YES blanchable surrounding erythema, no purulence expressed, YES probe to bone-Exposed achilles tendon posteriorly with fraying and complete RUPTURE and tracking to calcaneus, MILD malodor, moderate serosanginous drainage. Into level of BONE. RIGHT medial lower leg wound measures 0.3x0.8x0.1cm with 80:20 granular fibrotic base, surrounding slough, no surrounding edema and erythema, no purulence expressed, no probe to bone, no malodor, moderate serosanginous drainage. Into level of SUBCUTANEOUS layer. RIGHT medial heel maceration, area of concern, no open wound, measures 6x8cm LEFT foot 2nd toe tuft hyperkeratotic tissue Nails 2-5 left are thickened, elongated and discolored with subungual debris. The nails are greater than .3mm in thickness. The discoloration is yellowish in color. Innerspaces 1-4 LT are clean dry and intact. Skin texture and turgor are decreased. absent or decreased hair growth bilateral. chronic lower leg red hyperpigmentation Neurologic Exam: Comments/Other Findings: Vibratory sensations decreased LT, Protective sensations absent LT tested with 5.07 monofilament, and light, sharp, and temperature sensations intact LT. Normal Babinski test noted bl foot after testing Orthopedic Exam: Additional Orthopedic Findings: RIGHT foot toe amputations 1,2,3,4,5 LEFT 2nd hammertoe contracture semi- rigid BL foot with absent plantar flexion 0/5 muscle strength with palpable rupture to achilles tendon DIAGNOSIS: Type II diabetes mellitus with neurological manifestations PVD (peripheral vascular disease) Amputated toe of right foot Personal history of diabetic foot ulcer Callus Onychomycosis Venous ulcer of left lower extremity without varicose veins Ulcer of left lower extremity, limited to breakdown of skin Venous ulcer of right lower extremity without varicose veins Ulcer of right lower extremity, limited to breakdown of skin 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 Diabetic foot ulcer Diabetic leg ulcer Achilles rupture, left 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 Achilles rupture, right Ulcer of left foot with fat layer exposed Skin ulcer of left great toe, limited to breakdown of skin Malnutrition 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 No fractures or dislocations noted. No soft tissue emphysema noted. No osteopenia or sclerosis noted. tibial and fibular sesamoid excised, there is small calcified piece of fibular sesamoid bone noted to plantar lateral 1st met. RT foot amp at MTPJ 1,2,3,4,5. no lytic lesions. no soft tissue gas noted. 08/17/24 Xray left foot: No radiographic presence of OM 08/17/24 Xray tib/fib left leg: No radiographic presence of OM 08/17/24 Xray tib/fib right leg: No radiographic presence of OM 08/17/24 CRP: 13.6 and 08/18/24 ESR: 97 04/05/24 PVR b/l leg: Left MANJEET 0.9 and Right 0.95 08/18/24 Left leg wound culture: Few pseudomonas aeruginosa FINAL 08/18/24 MRI BL LE: 1. No drainable soft tissue abscess or evidence for osteomyelitis 2. Diffuse edema/cellulitis and fatty muscle atrophy with nonspecific myositis. 1/26/25 albumin: 3.3 LEFT FOOT NOT EXAMINED TODAY LEFT dorsal foot/anterior ankle wound healed. LEFT lateral lower leg ulcer improved. LEFT posterior achilles lower leg ulcer improved. LEFT dorsal lateral foot cluster ulcer improved. LEFT medial ankle ulcer stable. RIGHT ACHILLES WOUND WITH NEW CLUSTER WOUND THAT COMMUNICATES WITH ORIGINAL WOUND RIGHT medial lower leg wound stable. RIGHT posterior achilles lower leg ulcer NEW CLUSTER WORSENED. RIGHT posterior Achilles lower leg ulcer treated with sharp excisional debridement carried out of the wound with non selective sharp excisional debridement past the dermis into BONE level with use of curette, bone rongeur and 15 scalpel blade. Devitalized tissue removed and we then flushed out the wound with wound wash sterile saline. Area numbed with lidocaine gel if sensate prior. Discussed importance in offloading, proper nutrition including blood sugar control and getting enough protein and vitamins, infection prevention, and proper wound care in wound healing. Also discussed detrimental impact of smoking on healing. Reviewed proper wound care with patient. To not soak wound but to clean appropriately. To watch for signs of infection both local and systemic. These were reviewed with the patient. If seen to contact office or go to ED. To continue wound care consisting of washing the wound with soap and water or vashe solution soaked gauze for 3-5 minutes. Then to apply dressing see below To change vac 3 times a week and right packing daily. Cont BL wound vacs. RIGHT side put on HOLD. Discussed need to fill in the deficit from BL achilles rupture as well as to get coverage over achilles. Discussed wound vac is best option. Discussed would need to fill in wounds a bit more with wound vac before considering grafting. Discussed as bridging away from wound site keeping suction at 175mmHg to best effectively heal area. Discussed with both achilles ruptured she will struggle with push off in gait. Discussed achilles likely ruptured due to chronic ulceration with infections and drying out of tendon. Discussed if we can get her healed she will need AFO to aid in walking. Discussed she is at high risk for BKA BL. Discussed she can weight bear as tolerated. Discussed need assist for activities as she is a high fall risk. Discussed limiting motion at ankle joint to stop tugging on wounds to aid in healing. Discussed need to balance this with maintaining muscle. Discussed need for better nutrition Patient educated on the importance of proper nutrition to help optimize healing. Discussed eating three balanced meals daily and meal preparation. Discussed importance of high protein intake. Discussed supplementation drinks such as ensure, glucerna, nepro, tamiko. Discussed need for blood sugar control, proper vitamin intake whether dietary or through supplementation. Discussed Vitamin C, Multi Vitamin, zinc, and magnesium supplementation. Discussed may need to watch sodium intake as well especially if patient experiences swelling. Offered nutrition referral. Patient taking protein supplement drink BID between meals Discussed with NEW wound noted on right with small skin bridge communicated with main wound would recommend going to OR to get rid of the skin bridge so wound vac can work effectively. This will actually allow wound to heal better. Discussed if going to OR would also recommend bone biopsy as wound has been to bone for several weeks. Would also recommend cleaning up left side at same time. Left achilles wound is looking good, would consider putting intregra graft on in OR as well. Discussed we only have [facility] wound vac supplies. Patient to bring own wound vac supplies to give option of replacing vacs after surgery. Discussed is drainage too much or not looking appropriate may do alternative dressing and/or have nursing reapply vac. Patient had all questions answered. Patient agrees to move forward with surgical option. Plan for Wednesday surgery. Can go to [facility] prior to surgery. Described the procedure at length. Discussed at length the risks, benefits, alternatives, and complications including but not limited to infection, delayed healing, nonhealing, recurrence, and need for further surgery. Patient understood and all questions were answered to patient satisfaction. Discussed post operative care plan at length including but not limited to length of recovery and physical limitations during recovery. Patient agreed to proceed. Cx obtained Right achilles wound Rx doxy Follow up Wednesday for surgery All changes to wound vac settings and wound care must be cleared through Dr. Pickard prior to any changes being made. The pressure must remain at 175 due to the amount of tracking that must be done for the wounds Clear vac drape to all skin where foam will be placed. It is imperative to have all skin covered with clear drape where the black foam will be placed as there are new wounds where the black foam was placed directly on the patient's skin PLEASE ATTEMPT TO FEED THE PATIENT A DIABETIC DIET Diabetic Premiere Protein Shakes 2 x daily between meals May ambulate with Assistance Physical Therapy to assess what level of aid the patient needs to ambulate with assistance Patient may bear weight 1. Wash your hands with soap and water before and after wound care. 2. Gather all supplies needed. 3. Clean bilateral lower legs and feet with Dial Soap and Water. After removing the old dressings, the bilateral lower legs and feet MUST be cleaned with Dial Soap and Water prior to using Vashe' or Dakins and applying any new dressings. Do not get the wounds wet in the shower. 4. Take a clean 4x4 gauze and moisten with a few drops of Vashe (blue bottle) or Dakins and allow to soak for 5-10 minutes, then remove and pat dry. Right Anterior Lower leg blisters: - Cleanse wound with Daikins moistened gauze. Allow to soak for 5-10 min. -Apply Ungotol AG to blister. -Cover with Drawtex. -Secure with kerlix and tape. Right Achilles/heel 11/27/2024 (Holding Wound Vac on right leg 11/27/2024) - Cleanse wound with Daikins moistened gauze. Allow to soak for 5-10 min. - Apply Mesalt packing to the original tunnel now connecting to the new distal wound. Pack the the tendon exposed area of the achilles with Mesalt. - Apply Endoform (bumpy side down) to the proximal (well granulated) achilles. - Apply Urgotol AG on top of the endoform. - Place ABD pad over achilles and Heel cup ABD on heel. - Wrap with Kerlix and secure with tape. - Change dressing daily and as needed to maintain a clean dry dressing. Left medial Ankle, Left anterior lower leg, Left Lateral Lower leg, Right medial lower leg: - Apply to the wound base: Adaptic - Cover with: drawtex, clear VAC drape - Change your dressing: M-W-F and as needed to keep clean and dry - Secure with olegario wrap from behind the toes to 1 below the knee - OLEGARIO WRAPS ARE NOT FOR COMPRESSION - THEY ARE ONLY TO HELP KEEP DRESSINGS IN PLACE Right medial foot- area of concern - Apply betadine to keep area dry to prevent any maceration - Next apply drawtex and secure with vac drape. - Secure with olegario wrap from behind the toes to 1 below the knee - OLEGARIO WRAPS ARE NOT FOR COMPRESSION - THEY ARE ONLY TO HELP KEEP DRESSINGS IN PLACE Bilateral Achilles Alternate Dressing - Apply to the wound base: dakins moistened gauze packed in to the wound bed - Cover with: drawtex, 4x4's, abd pads - Secure dressing with: conform or kerlix wrap. tape - Change your dressing: Daily and as needed to keep clean and dry - Secure with olegario wrap from behind the toes to 1 below the knee - OLEGARIO WRAPS ARE NOT FOR COMPRESSION - THEY ARE ONLY TO HELP KEEP DRESSINGS IN PLACE Please apply a wound vac dressing on both achilles wounds & dorsal/lateral left foot wounds: KCL Recommended Settings: 175 mmHg, continuous Intensity High Continuous suction Wound Vac: Skin prep to naya-wound Duoderm to naya-wound of all wounds Eaken seal around the wound edge of each wound Apply white foam to right achilles tunnel (at 0600) Apply Acticoat to the entire wound base all wounds Clear vac drape to all skin where foam will be placed and for bridged areas: It is imperative to have all skin covered with clear drape where the black foam will be placed. Black foam to wound bed - be sure to not over pack wounds with foam Track pad to be placed avoiding all bony prominence Pad and protect skin from tubing at all times using ABD pads between patient's skin and VAC tubing Change dressing 3 x weekly and as needed to keep clean and dry Apply a loose olegario wrap to secure dressings - Avoid sitting with legs in a dependent position or standing for long periods of time. - Attempt to lay flat and elevate your legs above the level of your heart 2-3 times daily, for 30 minutes at a time. 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 Diagnosis Notes Drag & Drop to change diagnosis order PVD (peripheral vascular disease) 443.9 I73.9 Diagnosis Notes Drag & Drop to change diagnosis order Amputated toe of right foot 895.0 S98.131A Diagnosis Notes Drag & Drop to change diagnosis order Personal history of diabetic foot ulcer V12.29 Z86.31 Diagnosis Notes Drag & Drop to change diagnosis order Callus 700 L84 Diagnosis Notes Drag & Drop to change diagnosis order Onychomycosis 110.1 B35.1 Diagnosis Notes Drag & Drop to change diagnosis order Venous ulcer of left lower extremity without varicose veins 459.81 I87.2 Diagnosis Notes Drag & Drop to change diagnosis order Ulcer of left lower extremity, limited to breakdown of skin 707.10 L97.921 Diagnosis Notes Drag & Drop to change diagnosis order Venous ulcer of right lower extremity without varicose veins 459.81 I87.2 Diagnosis Notes Drag & Drop to change diagnosis order Ulcer of right lower extremity, limited to breakdown of skin 707.10 L97.911 Diagnosis Notes Drag & Drop to change diagnosis order 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 707.13 L97.323 Diagnosis Notes Drag & Drop to change diagnosis order Diabetic foot ulcer 250.80 E11.621 Diagnosis Notes Drag & Drop to change diagnosis order Diabetic leg ulcer 250.80 E11.622 Diagnosis Notes Drag & Drop to change diagnosis order Achilles rupture, left 845.09 S86.012A Diagnosis Notes Drag & Drop to change diagnosis order 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 707.13 L97.312 Diagnosis Notes Drag & Drop to change diagnosis order Achilles rupture, right 845.09 S86.011A Diagnosis Notes Drag & Drop to change diagnosis order Ulcer of left foot with fat layer exposed 707.15 L97.522 Diagnosis Notes Drag & Drop to change diagnosis order Skin ulcer of left great toe, limited to breakdown of skin 707.15 L97.521 Diagnosis Notes Drag & Drop to change diagnosis order Malnutrition 263.9 E46 Diagnosis Notes Drag & Drop to change diagnosis order 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 Nursing Documentation Pertinent Medical History: DM2, HTN, venous insufficiency, & heart failure Wound Etiology according to patient: wounds started February 2024 Pt had right great toe amputation June 18, 2023 Patient arrived via: Ambulatory with cane Home Care Company/Nursing Facility: [facility] Consent captured for debridement per Hu Pickard DPM and good until April 2025 Anticoagulant Therapy: ASA 81mg ACTIVE CARE PER PROVIDER: Hu Pickard DPM Application Dates: Grafts are complete 01/07/2023 A[facility] 01/15/2023 A[facility]raf 01/21/2023 A[facility] 01/27/2023 A[facility] 02/04/2023 [facility] Wounds 1-38 previously closed 40 closed 44 closed 47 Closed WOUND # 45 - LOCATION: Right Anterior Lateral Lower Leg Cluster - (08/17/24 ) - closed 11/10/24, closed 11/24/24 WOUND ASSESSMENT: Refer to Provider's Wound Assessment Note VASCULAR ASSESSMENT BY PROVIDER: See provider wound assessment note CHF History: Yes as of February 2022, Dr. Sadler in Cardiology EDEMA: Right Foot: 1+ Right ankle: 3+ Right Calf: brawny Left Foot: none Left ankle: 3+ Left Calf: none MEASUREMENTS: in CM Right Calf: 34.0 Right Ankle: 24.5 Left Calf: 32.2 Left Ankle: 23.8 Length: 43.0 not measured at visit WOUND PHOTOGRAPHY:Yes (date taken 11/27/24) DEBRIDEMENT PROCEDURE BY PROVIDER: Anesthetic Used: n/a Other procedure: N/A Specimen collected: N/A WOUND TREATMENT PER MD ORDER: Wounds cleansed by mechanical debridement to allow provider to visualize wound base 07/05/24: Patient reports wosening heart failure; states she has a lot more swelling in the legs and has had trouble breathing when trying to lay in bed to sleep; weight today = 247lbs (up almost 25lbs since 2023). Message sent to Ayan Wallis CNP with heart failure clinic. Patient states she has been speaking to Ayan via telephone regarding weight gain. 07/26/24: Pt with increased pain, drainage, redness noted to bilateral lower legs. New wounds present on bilateral lower legs. Pt stated that she did not come to appointment last week with Dr. Reyes due to not feeling well, stated that her legs were giving her issues. Discussed with pt the importance of not waiting to be seen if her Dr. Reyes would like pt to go to the ER. LEFT LOWER LEG WOUNDS *Silicone Allergy WOUND # 41 - LOCATION: Left Medial Ankle (NEW 07/26/24 L: 0.7 cm x W: 1.0 cm x D: 0.2 cm WOUND # 46 LOCATION: Left Lateral Lower Leg (NEW 10/12/24)) L: 2.8 cm x W: 0.9 cm x D: 0.2 cm Cleansed with: Dial soap and water, Dakins Applied to naya-wound skin:skin prep Applied to wound bed: adaptic, drawtex Covered and secured with: Clear VAC drape ABD pads, kerlix Secure with olegario wrap from behind the toes to 1 below the knee Lose to only secure the dressings - - - - - - - - - - - - - - - - - - - - - - - - - - - - - - - - - - - - - - - - - - - - - - - - - - - - - - - - - - - - - - - - - - - - - - - - WOUND VAC WOUNDS: 39, 42 & 43 WOUND # 39 LOCATION: Right Achilles Clutster (Hold Vac 11/27/2024 on right side only) L: 9.5 cm x W: 5.0 cm x D: 1.3 cm - Tendon exposed Tunnel: in cm 0600: 3.5 to bone Undermining: in cm 0.7 cm towards 0700 Cleansed with: Dakins Applied to naya-wound skin:skin prep Applied to wound bed: Proximal achilles-urgotol AG. Distal achilles-mesalt packing to original tunnel (connecting) Covered and secured with: endoform to the granulated area (bumpy side down) urtotol AG to on top of everything, drawtex, drymax, ABD pad, heel cup, Kerlix, tape. Secure with olegario wrap from behind the toes to 1 below the knee Lose to only secure dressing WOUND # 42 - LOCATION: Left Achilles (NEW 07/26/24) L: 10.5 cm x W: 3.0 cm x D: 1.2 cm - Tendon exposed WOUND # 43 - LOCATION: Left Dorsal / Lateral Foot -(NEW 07/26/24 L: 0.5 cm x W: 1.3 cm x D: 0.3 cm Cleansed with: Dial soap and water/ Dakins Applied to naya-wound skin:skin prep, duoderm, saul seal Applied to wound bed: acticoat, black foam, white foam to right achilles tunnel, followed by black foam Covered and secured with: drape, track pad, ABD pads, Kerlix, & Tape Secure with olegario wrap from behind the toes to 1 below the knee Lose to only secure dressings WOUND # 49 LOCATION: Left anterior lower leg - (new 11/10/24) 11/17/24 closed, but fragile L: 0.6 cm x W: 0.5 cm x D: 0.1 cm Cleansed with: Dial soap and water/Dakins Applied to naya-wound skin:skin prep Applied to wound bed: adaptic, drawtex Covered and secured with: VAC drape Secure with ABD pads, kerlix WOUND #50 LOCATION: Left dorsal foot/anterior ankle (NEW 11/17/24) closed 11/24/24 - - - - - - - - - - - - - - - - - - - - - - - - - - - - - - - - - - - - - - - - - - - - - - - - - - - - - - - - - - - - - - - - - - - - - - - - RIGHT LOWER LEG WOUNDS WOUND # 48 LOCATION: Right medial lower leg cluster - new 11/10/24 L: 0.3 cm x W: 0.8 cm x D: 0.1 cm Cleansed with: Dial soap and water/Dakins Applied to naya-wound skin:skin prep Applied to wound bed: adaptic, drawtex Covered and secured with: VAC drape Secure with ABD pads, kerlix WOUND #52 LOCATION: Right anterior lower leg (NEW 11/17/24) closed 11/24/24 WOUND #53 LOCATION: Right lateral lower leg (NEW 11/17/24) closed 11/24/24 WOUND # 51 LOCATION: Right anterior-medial ankle (NEW 11/17/24) closed 11/24/24 AOC: Right medial Foot maceration: L: 6.0 cm x W: 8.0 cm x maceration- applied betadine and drawtex secured with vac drape; Right medial leg blister cluster: L; 2.9 cm x W: 2.5 cm x 0.2 cm-urgotol AG and drawtex applied. COMPRESSION: NO COMPRESSION. Olegario wraps only to secure dressings SPECIAL NEEDS: Coordination of care - AVS faxed to [facility] [place] via [facility] Emotional support N/A OR set-up N/A Yarn Examiner N/A Incontinence needs N/A DME company: ordered 03/01/24 [employer], Supplies ordered 06/07/2024 x 30 days with 2 refills DISCHARGED in stable condition to: back to [facility] with brother PLAN/ORDERS: Follow-up in the Wound Center with Dr Pickard once a week: 12/01/24 @ 10:00am Continue aggressive nutritional support to assist wound healing, focusing on increasing protein intake, keeping blood sugars stable/controlled Blood sugars must be kept below 150 for wound healing Patient is a High Fall Risk due - UP WITH ASSIST ONLY HAVE PATIENT ATTEMPT CHAIR YOGA EXERCISES - LIMITED ANKLE MOVEMENT WEIGHT BEARING TOLERATED Please give patient premiere diabetic protein shakes 2 x daily between meals. Antibiotic has been sent to [facility] in [place]. Culture was collected today (11/27/2024). Will call you with the results if antibiotic needs changed. Plan is to go to operating room Wednesday12/01/2024. Time to be determined. Leaving wound center appt scheduled until time is scheduled in the operating room. OTHER EDUCATION: Dr. Pickard discussed continuing with the wound vac and new wound care for the new wounds noted where black foam was in direct contact with the patient's skin. Education performed regarding lymphedema/edema: n/a Elevation of extremity above the heart for 30 minutes three times daily and as needed Exercise such as writing the ABC's with your toes in the air, walking and/or calf pumps Wearing compression as ordered by provider Diet controlling of sodium as instructed by provider Use of medication to help control edema. UNIVERSAL PROTOCOL / SAFETY CHECKLIST Procedure to be Performed sharp debridement of Bilateral Lower Legs Sign In: 1404 A Moment of CARE was completed. Personnel directly involved with the procedure wore the appropriate PPE (Personal Protective Equipment). Patient/Surrogate Stated/Verified: 1404 PATIENT VERIFIED(optional for EMERGENT procedures): Patient name, Date of , Relevant allergies, and The intended procedure Time Out Communication: 1437 Intended patient and procedure match the source documents. Consent documented and matches the intended procedure. No relevant labs, photos, and/or imaging studies were applicable for review. Sign Out: 1460 SIGN OUT (optional for EMERGENT procedures): All instruments, equipment, possible retained foreign bodies accounted for. Heidi Rush LPN/melonie documented in this encounter [facility] 11-27-2024 Telephone encounter Note Patient is to let us know if she uses the FSL 2 or 3. If we should send to the pharmacy or medical supply company. Will await for a response. [facility] 11-27-2024 Instructions Heidi Rush LPN - 11/27/2024 2:04 PM EDT WOUND CARE INSTRUCTIONS- Shade Brambila Wound location: Bilateral Lower Legs [facility]: FAX: [phone] All changes to wound vac settings and wound care must be cleared through Dr. Pickard prior to any changes being made. The pressure must remain at 175 due to the amount of tracking that must be done for the wounds Clear vac drape to all skin where foam will be placed. It is imperative to have all skin covered with clear drape where the black foam will be placed as there are new wounds where the black foam was placed directly on the patient's skin PLEASE ATTEMPT TO FEED THE PATIENT A DIABETIC DIET Diabetic Premiere Protein Shakes 2 x daily between meals May ambulate with Assistance Physical Therapy to assess what level of aid the patient needs to ambulate with assistance Patient may bear weight 1. Wash your hands with soap and water before and after wound care. 2. Gather all supplies needed. 3. Clean bilateral lower legs and feet with Dial Soap and Water. After removing the old dressings, the bilateral lower legs and feet MUST be cleaned with Dial Soap and Water prior to using Vashe' or Dakins and applying any new dressings. Do not get the wounds wet in the shower. 4. Take a clean 4x4 gauze and moisten with a few drops of Vashe (blue bottle) or Dakins and allow to soak for 5-10 minutes, then remove and pat dry. Right Anterior Lower leg blisters: - Cleanse wound with Daikins moistened gauze. Allow to soak for 5-10 min. -Apply Ungotol AG to blister. -Cover with Drawtex. -Secure with kerlix and tape. Right Achilles/heel 11/27/2024 (Holding Wound Vac on right leg 11/27/2024) - Cleanse wound with Daikins moistened gauze. Allow to soak for 5-10 min. - Apply Mesalt packing to the original tunnel now connecting to the new distal wound. Pack the the tendon exposed area of the achilles with Mesalt. - Apply Endoform (bumpy side down) to the proximal (well granulated) achilles. - Apply Urgotol AG on top of the endoform. - Place ABD pad over achilles and Heel cup ABD on heel. - Wrap with Kerlix and secure with tape. - Change dressing daily and as needed to maintain a clean dry dressing. Left medial Ankle, Left anterior lower leg, Left Lateral Lower leg, Right medial lower leg: - Apply to the wound base: Adaptic - Cover with: drawtex, clear VAC drape - Change your dressing: M-W-F and as needed to keep clean and dry - Secure with olegario wrap from behind the toes to 1 below the knee - OLEGARIO WRAPS ARE NOT FOR COMPRESSION - THEY ARE ONLY TO HELP KEEP DRESSINGS IN PLACE Right medial foot- area of concern - Apply betadine to keep area dry to prevent any maceration - Next apply drawtex and secure with vac drape. - Secure with olegario wrap from behind the toes to 1 below the knee - OLEGARIO WRAPS ARE NOT FOR COMPRESSION - THEY ARE ONLY TO HELP KEEP DRESSINGS IN PLACE Bilateral Achilles Alternate Dressing - Apply to the wound base: dakins moistened gauze packed in to the wound bed - Cover with: drawtex, 4x4's, abd pads - Secure dressing with: conform or kerlix wrap. tape - Change your dressing: Daily and as needed to keep clean and dry - Secure with olegario wrap from behind the toes to 1 below the knee - OLEGARIO WRAPS ARE NOT FOR COMPRESSION - THEY ARE ONLY TO HELP KEEP DRESSINGS IN PLACE Please apply a wound vac dressing on both achilles wounds & dorsal/lateral left foot wounds: KCL Recommended Settings: 175 mmHg, continuous Intensity High Continuous suction Wound Vac: Skin prep to naya-wound Duoderm to naya-wound of all wounds Eaken seal around the wound edge of each wound Apply white foam to right achilles tunnel (at 0600) Apply Acticoat to the entire wound base all wounds Clear vac drape to all skin where foam will be placed and for bridged areas: It is imperative to have all skin covered with clear drape where the black foam will be placed. Black foam to wound bed - be sure to not over pack wounds with foam Track pad to be placed avoiding all bony prominence Pad and protect skin from tubing at all times using ABD pads between patient's skin and VAC tubing Change dressing 3 x weekly and as needed to keep clean and dry Apply a loose olegario wrap to secure dressings - Avoid sitting with legs in a dependent position or standing for long periods of time. - Attempt to lay flat and elevate your legs above the level of your heart 2-3 times daily, for 30 minutes at a time. - Be sure to continue walking and/or calf pumps and exercises to mimic writing the alphabet with your foot, as instructed Foot care Many people with diabetes lose the feeling in their feet (neuropathy). Therefore, they might not know they have an injury that can lead to serious problems, such as foot removal (amputation). By taking care of your feet, most serious problems can be prevented. If you have problems checking your own feet, have a family member or friend help you. Easy steps to protect your feet: Check your feet every day for: dry or cracked skin, cuts, open sores, blisters, redness, swelling, corns, calluses, or toenail problems. Use a mirror if necessary. Report any problems to your doctor. Keep your feet clean and dry, especially between the toes. If your feet are dry or cracked use a moisturizing lotion at least daily but never between the toes. See your judicial clerk every three months for foot and nail care. Don't go barefoot. Wear shoes or slippers at all times. Wear comfortable shoes that fit well. Check inside your shoes for foreign objects or rough spots before putting on shoes. Always wear socks. Avoid using anything hot, such as heating pads, hot water bottles, hot tubs, or bath water. Check the temperature of bath water with your elbow not your foot. Take your shoes and socks off at every office visit to remind your doctor to check your feet. Also, never tape a dressing directly to the skin on your legs or feet. Instead, use a self-adherent bandage to avoid injuring the skin on your lower extremities If calluses form they can cause wound ulcers to appear under the callus, must be seen by [employer] every three months to prevent. Maintain controlled blood sugar, if blood sugar is consistently above 200 this can delay wound healing and aggravate neuropathy. To give your wound the best chance to heal: - Eat three balanced meals daily focusing on the protein - Control your blood sugar. Keep blood sugar less than 200 - Complete your wound care instructions as ordered - Vitamin C 500 mg twice daily - Multiple Vitamin Daily - Drink a protein shake daily - Premiere Clear or Glucerna for Diabetic patients, Nepro for renal patients and premiere for non-renal and non-diabetic patients Report any of the following signs and symptoms of infection to the Wound Center at [phone] or go to the Emergency Department: Fever or chills Increased drainage Green or yellow drainage Foul odor Increased pain Hardness around the wound Redness, warmth or swelling of the surrounding tissue Color change to the wound Evenings / Weekends / Holidays If you call the wound center at the phone number provided above, please leave a detailed message that includes your full name, birthday, and phone number. We are seeing patients during the day, so we will return your call within a 24-48 hr period in the order your call was received. There is not an on-call provider assigned to the wound center. If you have an emergency that needs to be addressed, please go to an Urgent Care or Emergency Room. Thank you for your cooperation and understanding. If you are feeling ill, please call to reschedule your appointment. If you believe your illness to be wound related, call and leave a message using the directions above describing your symptoms. If you cannot wait 24-48 hrs for a callback, please get evaluated in the nearest emergency department. PLAN/ORDERS: Follow-up in the Wound Center with Dr Pickard once a week: 12/01/24 @ 10:00am Continue aggressive nutritional support to assist wound healing, focusing on increasing protein intake, keeping blood sugars stable/controlled Blood sugars must be kept below 150 for wound healing Patient is a High Fall Risk due - UP WITH ASSIST ONLY HAVE PATIENT ATTEMPT CHAIR YOGA EXERCISES - LIMITED ANKLE MOVEMENT WEIGHT BEARING TOLERATED Please give patient premiere diabetic protein shakes 2 x daily between meals. Antibiotic has been sent to [facility] in [place]. Culture was collected today (11/27/2024). Will call you with the results if antibiotic needs changed. Plan is to go to operating room Wednesday12/01/2024. Time to be determined. Leaving wound center appt scheduled until time is scheduled in the operating room. Hu Pickard DPGricel/aa/fm WOUND # 41 - LOCATION: Left Medial Ankle (NEW 07/26/24 L: 0.7 cm x W: 1.0 cm x D: 0.2 cm WOUND # 46 LOCATION: Left Lateral Lower Leg (NEW 10/12/24)) L:2.8 cm x W: 0.9 cm x D: 0.2 cm WOUND VAC WOUNDS: Wounds 39, 42 &43 WOUND # 39 LOCATION: Right Achilles L: 9.0 cm x W: 4.2 cm x D: 1.3 cm - Tendon exposed Tunnel: in cm 0600: 3.5 cm to bone WOUND # 42 - LOCATION: Left Achilles (NEW 07/26/24) L: 10.5 cm x W: 3.0 cm x D: 1.2 cm - Tendon exposed WOUND # 43 - LOCATION: Left Dorsal / Lateral Foot -(NEW 07/26/24 L: 0.5 cm x W: 1.3 cm x D: 0.3 cm WOUND # 48 LOCATION: Right medial lower leg cluster - new 11/10/24 L: 0.3 cm x W: 0.8 cm x D: 0.1 cm documented in this encounter [facility] 11-27-2024 Note [facility] 11-24-2024 Note [facility] 11-24-2024 History of Presen t illness Narrative Date of Visit: 11/24/2024 Problem list reviewed. CHIEF COMPLAINT: check B/L lower leg wounds DM II A1c 7.4 (10/25/24) DLS 02/08/24 ADM 08/17/24 HISTORY OF PRESENT ILLNESS: Patient presents for BL leg wound check. She was admitted 08/17/24 and was DC to [facility] where she is still at. She relates her insurance wouldn't cover it so she is self paying and planning on going to the nonskilled assistive living side soon. She is at [facility]. They have resumed the wound vac. She was DC on cipro and flagyl which she finished taking. Patient is taking protein drinks on own. She relates the facility isn't good about helping her dietary needs. They have started to give her the protein supplements though. She states pain is a 2/10. She relates she can't feel feet well and gets numbness. Referred by aircraft hydraulic equipment mechanic, Dr. Dasilva. Patient is DM and sees aircraft hydraulic equipment mechanic Denies N/V/F/C/D/SOB/CP/LP. PCN allergy Hx RT 3rd perc flexor tenotomy (07/26/23) HX R great toe amputation 06/18/23, excision tibial and fibular sesamoid, bone biopsy first met head. Right 2nd toe amputation and hallux I&D 10/28/22. Hx s/p RT toe amp 3,4,5 (DOS 10/14/23) DME DM inserts 08/24/23 rx circade wraps 08/14/22 CURRENT MEDICATIONS: oxyCODONE HCl Oral Tablet 5 MG (07/05/2024) Take 1 tablet every 12 hours as needed for 7 day(s) Percocet Oral Tablet 5-325 MG (07/20/2024) Take 1 tablet every 12 hours as needed for 7 day(s) oxyCODONE-Acetaminophen Oral Tablet 5-325 MG (10/28/2022) Ketorolac Tromethamine Ophthalmic Solution 0.5 % (04/26/2023) Accu-Chek Jose Plus In Vitro Strip (09/23/2022) Atorvastatin Calcium Oral Tablet 80 MG (06/13/2023) miSOPROStol Oral Tablet 200 MCG (06/15/2023) TAKE 2 TABLETS BY MOUTH THE DAY PRIOR TO PROCEDURE AT BEDTIME WITH FOOD Fluticasone Propionate Nasal Suspension 50 MCG/ACT (12/15/2022) USE 2 SPRAYS IN EACH NOSTRIL DAILY X1 WEEK,THEN 1 SPRAY IN EACH NOSTRIL DAILY THEREAFTER NEEDED Nitrofurantoin Monohyd Macro Oral Capsule 100 MG (02/08/2023) Fluconazole Oral Tablet 200 MG (03/20/2024) TAKE 1 TABLET EVERY DAY FOR 21 DAYS Bactrim DS Oral Tablet 800-160 MG (06/24/2023) Take 1 tablet twice a day for 10 day(s) Ofloxacin Ophthalmic Solution 0.3 % (03/30/2023) diazePAM Oral Tablet 10 MG (02/19/2022) TAKE 1 TABLET 60 MIN BEFORE TEST Atorvastatin Calcium Oral Tablet 40 MG (11/18/2022) FLUoxetine HCl Oral Capsule 40 MG (01/26/2022) Enalapril Maleate Oral Tablet 10 MG (01/26/2022) TAKE 1 TABLET BY MOUTH EVERY DAY Erythromycin Ophthalmic Ointment 5 MG/GM (02/09/2022) APPLY 1 A SMALL AMOUNT LEFT EYE 4 TIMES A DAY Atorvastatin Calcium Oral Tablet 20 MG (01/26/2022) TAKE 1 TABLET BY MOUTH EVERY DAY Spironolactone Oral Tablet 25 MG (06/15/2023) TAKE 0.5 TABLETS BY MOUTH ONCE DAILY. Jardiance Oral Tablet 25 MG (06/14/2023) TAKE 1 TABLET BY MOUTH EVERY DAY WITH BREAKFAST Furosemide Oral Tablet 40 MG (11/18/2022) HumuLIN R U-500 KwikPen Subcutaneous Solution Pen-injector 500 UNIT/ML (06/14/2023) INJECT 40 UNITS SUBCUTANEOUSLY AT BREAKFAST, 100 UNITS AT LUNCH, 80 UNITS AT SUPPER. metFORMIN HCl Oral Tablet 1000 MG (11/23/2022) TAKE 1 TABLET BY MOUTH TWICE DAILY WITH MEALS. E11.3599 ALLERGIES: Amoxicillin Unknown Band-Aid [place] Surg Dressing Other Bandaging Tape Other PAST MEDICAL HISTORY: Podiatry History remarkable for Foot Numbness, Fungal Nails, Leg or Foot Ulcers. The patient has a past medical history of Arthritis, Depression, DM-Medication Dependent, Poor Circulation. Neuropathy High Cholesterol SURGICAL HISTORY: Hand Tonsils HOSPITALIZATIONS: None Noted SOCIAL HISTORY: Smoking Status: Never smoker; Last Reviewed: 12/08/2023 Alcohol use: social drinker No drug use Social History Reviewed (01/16/2021 11:20:18 AM EST) FAMILY HISTORY: There is a family history of Denial of any knowledge of significant family history. Denial of any knowledge of significant family history Family History Reviewed (01/16/2021 11:20:19 AM EST) REVIEW OF SYSTEMS: Psychologic: Admits to No psych symptoms. Review of systems otherwise negative PHYSICAL EXAMINATION: Vital Signs: Weight 235 lbs; Height 5 ft 8 in; BMI 35.7 11/22/2024 9:25 AM (EST) Temperature 98.6 F; Pulse Rate 100 bpm; Blood Pressure 120 / 80 mm/Hg Vascular Exam: DP pulses of the RIGHT and LEFT foot are +1/4 PT pulses of the RIGHT and LEFT foot are +1/4 CFT is within normal limits, less than 3s to all digits, both feet. Skin temperature from proximal to distal is warm to warm, both feet. BL LE edema Dermatologic Exam: LEFT hallux wound healed and LEFT anterior lower leg wound healed LEFT medial ankle wound predebridement measures 0.6x0.9x0.1cm and post debridement measures 0.7x1.0x0.2cm with 70:30 granular fibrotic base, minimal surrounding slough, no surrounding edema and erythema, no purulence expressed, no probe to bone, MILD malodor, moderate serosanginous drainage. Into level of SUBCUTANEOUS tissue. LEFT lateral lower leg wound predebridement measures 2.6x0.8x0.1cm and post debridement measures 2.8x0.9x0.2cm with 70:30 granular fibrotic base, surrounding slough, no erythema, no purulence, no probe to bone, MILD malodor, moderate serosanguinous drainage. Into level of SUBCUTANEOUS TISSUE, partial thickness LEFT posterior Achilles lower leg wound predebridement measures 10.3x2.8x1.0cm and post debridement measures 10.5x3.0x1.2cm with 85:15 granular fibrotic base, surrounding slough, no surrounding edema and erythema, no purulence expressed, no probe to bone-exposed achilles tendon with complete RUPTURE, MILD malodor, moderate serosanginous drainage. Into level of TENDON. LEFT dorsal lateral foot wound predebridement measures 0.4x1.1x0.2cm and post debridement measures 0.5x1.3x0.3cm with 70:30 granular fibrotic base, no surrounding callus, no surrounding edema and erythema, no purulence expressed, no probe to bone-exposed extensor tendon, MILD malodor, moderate serosanginous drainage. Into level of TENDON tissue LEFT dorsal foot/anterior ankle wound and LEFT anterior lower leg wound healed RIGHT posterior Achilles lower leg wound predebridement measures 8.8x4.0x1.1cm and post debridement measures 9.0x4.2x1.3cm with tunnelling at 6 o'clock for 3.5cm, 60:40 granular fibrotic base, surrounding slough, no surrounding edema and erythema, no purulence expressed, YES probe to bone-Exposed achilles tendon posteriorly with fraying and complete RUPTURE and tracking to calcaneus, MILD malodor, moderate serosanginous drainage. Into level of BONE. RIGHT medial lower leg wound predebridement measures 0.2x0.6x0.1cm and post debridement measures 0.3x0.8x0.1cm with 80:20 granular fibrotic base, surrounding slough, no surrounding edema and erythema, no purulence expressed, no probe to bone, no malodor, moderate serosanginous drainage. Into level of SUBCUTANEOUS layer. RIGHT anterior medial ankle, RIGHT anterior lower leg, RIGHT lateral lower leg wound healed RIGHT medial heel maceration, area of concern, no open wound, measures 6x8cm LEFT foot 2nd toe tuft hyperkeratotic tissue Nails 2-5 left are thickened, elongated and discolored with subungual debris. The nails are greater than .3mm in thickness. The discoloration is yellowish in color. Innerspaces 1-4 LT are clean dry and intact. Skin texture and turgor are decreased. absent or decreased hair growth bilateral. chronic lower leg red hyperpigmentation Neurologic Exam: Comments/Other Findings: Vibratory sensations decreased LT, Protective sensations absent LT tested with 5.07 monofilament, and light, sharp, and temperature sensations intact LT. Normal Babinski test noted bl foot after testing Orthopedic Exam: Additional Orthopedic Findings: RIGHT foot toe amputations 1,2,3,4,5 LEFT 2nd hammertoe contracture semi- rigid BL foot with absent plantar flexion 0/5 muscle strength with palpable rupture to achilles tendon DIAGNOSIS: Type II diabetes mellitus with neurological manifestations PVD (peripheral vascular disease) Amputated toe of right foot Personal history of diabetic foot ulcer Callus Onychomycosis Venous ulcer of left lower extremity without varicose veins Ulcer of left lower extremity, limited to breakdown of skin Venous ulcer of right lower extremity without varicose veins Ulcer of right lower extremity, limited to breakdown of skin 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 Diabetic foot ulcer Diabetic leg ulcer Achilles rupture, left 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 Achilles rupture, right Ulcer of left foot with fat layer exposed Skin ulcer of left great toe, limited to breakdown of skin Malnutrition 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 No fractures or dislocations noted. No soft tissue emphysema noted. No osteopenia or sclerosis noted. tibial and fibular sesamoid excised, there is small calcified piece of fibular sesamoid bone noted to plantar lateral 1st met. RT foot amp at MTPJ 1,2,3,4,5. no lytic lesions. no soft tissue gas noted. 08/17/24 Xray left foot: No radiographic presence of OM 08/17/24 Xray tib/fib left leg: No radiographic presence of OM 08/17/24 Xray tib/fib right leg: No radiographic presence of OM 08/17/24 CRP: 13.6 and 08/18/24 ESR: 97 04/05/24 PVR b/l leg: Left MANJEET 0.9 and Right 0.95 08/18/24 Left leg wound culture: Few pseudomonas aeruginosa FINAL 08/18/24 MRI BL LE: 1. No drainable soft tissue abscess or evidence for osteomyelitis 2. Diffuse edema/cellulitis and fatty muscle atrophy with nonspecific myositis. 10/01/24 albumin: 3.3 LEFT dorsal foot/anterior ankle wound healed. RIGHT anterior medial ankle wound healed. RIGHT anterior lower leg wound healed. RIGHT lateral lower leg wound healed. RIGHT medial lower leg wound improved. LEFT lateral lower leg ulcer improved. LEFT posterior achilles lower leg ulcer improved. LEFT dorsal lateral foot cluster ulcer improved. LEFT medial ankle ulcer stable. RIGHT posterior achilles lower leg ulcer stable. RIGHT anterior lateral lower leg cluster ulcer healed. LEFT hallux ulcer healed. LEFT anterior lower leg ulcer healed. LEFT anterior lower leg cluster wound healed. LEFT medial ankle ulcer, LEFT lateral lower leg ulcer, RIGHT medial lower leg ulcer treated with sharp excisional debridement carried out of the wound with non selective sharp excisional debridement past the dermis into SUBCUTANEOUS level with use of curette and 15 scalpel blade. Devitalized tissue removed. We then flushed out the wound with wound wash sterile saline. Area numbed with lidocaine gel if sensate prior. LEFT dorsal lateral foot ulcer, LEFT posterior achilles lower leg ulcer treated with sharp excisional debridement carried out of the wound with non selective sharp excisional debridement past the dermis into FASCIA and FAT level with use of curette and 15 scalpel blade. Devitalized tissue removed and we then flushed out the wound with wound wash sterile saline. Area numbed with lidocaine gel if sensate prior. RIGHT posterior Achilles lower leg ulcer treated with sharp excisional debridement carried out of the wound with non selective sharp excisional debridement past the dermis into BONE level with use of curette, bone rongeur and 15 scalpel blade. Devitalized tissue removed and we then flushed out the wound with wound wash sterile saline. Area numbed with lidocaine gel if sensate prior. Discussed importance in offloading, proper nutrition including blood sugar control and getting enough protein and vitamins, infection prevention, and proper wound care in wound healing. Also discussed detrimental impact of smoking on healing. Reviewed proper wound care with patient. To not soak wound but to clean appropriately. To watch for signs of infection both local and systemic. These were reviewed with the patient. If seen to contact office or go to ED. To continue wound care consisting of washing the wound with soap and water or vashe solution soaked gauze for 3-5 minutes. Then to apply dressing consisting of BL achilles wounds and LEFT dorsal lateral foot wound urgoul AG with wound vac. To the other wounds apply adaptic and drawtex and gauze wrap or if will be incorporated into wound drape adaptic and drawtex under drape. To change 3 times a week. Discussed no new wounds to legs today. Wound vac seems to be applied correctly. Patient presents with wound team from facility to see what is going on. Cont BL wound vacs. Discussed need to fill in the deficit from BL achilles rupture as well as to get coverage over achilles. Discussed wound vac is best option. Discussed would need to fill in wounds a bit more with wound vac before considering grafting. Discussed as bridging away from wound site keeping suction at 175mmHg to best effectively heal area. Discussed with both achilles ruptured she will struggle with push off in gait. Discussed achilles likely ruptured due to chronic ulceration with infections and drying out of tendon. Discussed if we can get her healed she will need AFO to aid in walking. Discussed she is at high risk for BKA BL. Discussed she can weight bear as tolerated. Discussed need assist for activities as she is a high fall risk. Discussed limiting motion at ankle joint to stop tugging on wounds to aid in healing. Discussed need to balance this with maintaining muscle. Discussed need for better nutrition Patient educated on the importance of proper nutrition to help optimize healing. Discussed eating three balanced meals daily and meal preparation. Discussed importance of high protein intake. Discussed supplementation drinks such as ensure, glucerna, nepro, tamiko. Discussed need for blood sugar control, proper vitamin intake whether dietary or through supplementation. Discussed Vitamin C, Multi Vitamin, zinc, and magnesium supplementation. Discussed may need to watch sodium intake as well especially if patient experiences swelling. Offered nutrition referral. Patient taking protein supplement drink BID between meals Patient relates she would like to continue care at [facility] with me managing her wounds with nurses at facility helping with dressing changes only. Future plan to take to OR for possible grafting if can fill in some depth with wound vac vs office grafting Follow up in 1 week for check with continued monitoring at [facility] and see if started working with PT The pressure must remain at 175 due to the amount of tracking that must be done for the wounds Clear vac drape to all skin where foam will be placed. It is imperative to have all skin covered with clear drape where the black foam will be placed as there are new wounds where the black foam was placed directly on the patient's skin PLEASE ATTEMPT TO FEED THE PATIENT A DIABETIC DIET Diabetic Premiere Protein Shakes 2 x daily between meals May ambulate with Assistance Physical Therapy to assess what level of aid the patient needs to ambulate with assistance Patient may bear weight 1. Wash your hands with soap and water before and after wound care. 2. Gather all supplies needed. 3. Clean bilateral lower legs and feet with Dial Soap and Water. After removing the old dressings, the bilateral lower legs and feet MUST be cleaned with Dial Soap and Water prior to using Vashe' or Dakins and applying any new dressings. Do not get the wounds wet in the shower. 4. Take a clean 4x4 gauze and moisten with a few drops of Vashe (blue bottle) or Dakins and allow to soak for 5-10 minutes, then remove and pat dry. Left medial Ankle, Left anterior lower leg, Left Lateral Lower leg, Right medial lower leg: - Apply to the wound base: Adaptic - Cover with: drawtex, clear VAC drape - Change your dressing: M-W-F and as needed to keep clean and dry - Secure with olegario wrap from behind the toes to 1 below the knee - OLEGARIO WRAPS ARE NOT FOR COMPRESSION - THEY ARE ONLY TO HELP KEEP DRESSINGS IN PLACE Right medial foot- area of concern - Apply betadine to keep area dry to prevent any maceration - Next apply drawtex and secure with vac drape. - Secure with olegario wrap from behind the toes to 1 below the knee - OLEGARIO WRAPS ARE NOT FOR COMPRESSION - THEY ARE ONLY TO HELP KEEP DRESSINGS IN PLACE Bilateral Achilles Alternate Dressing - Apply to the wound base: dakins moistened gauze packed in to the wound bed - Cover with: drawtex, 4x4's, abd pads - Secure dressing with: conform or kerlix wrap. tape - Change your dressing: Daily and as needed to keep clean and dry - Secure with olegario wrap from behind the toes to 1 below the knee - OLEGARIO WRAPS ARE NOT FOR COMPRESSION - THEY ARE ONLY TO HELP KEEP DRESSINGS IN PLACE Please apply a wound vac dressing on both achilles wounds & dorsal/lateral left foot wounds: KCL Recommended Settings: 175 mmHg, continuous Intensity High Continuous suction Wound Vac: Skin prep to naya-wound Duoderm to naya-wound of all wounds Eaken seal around the wound edge of each wound Apply white foam to right achilles tunnel (at 0600) Apply Acticoat to the entire wound base all wounds Clear vac drape to all skin where foam will be placed and for bridged areas: It is imperative to have all skin covered with clear drape where the black foam will be placed. Black foam to wound bed - be sure to not over pack wounds with foam Track pad to be placed avoiding all bony prominence Pad and protect skin from tubing at all times using ABD pads between patient's skin and VAC tubing Change dressing 3 x weekly and as needed to keep clean and dry Apply a loose olegario wrap to secure dressings - Avoid sitting with legs in a dependent position or standing for long periods of time. - Attempt to lay flat and elevate your legs above the level of your heart 2-3 times daily, for 30 minutes at a time. - Be sure to continue walking and/or calf pumps and exercises to mimic writing the alphabet with your foot, as instructed Type II diabetes mellitus with neurological manifestations 250.60 E11.49 Diagnosis Notes Drag & Drop to change diagnosis order PVD (peripheral vascular disease) 443.9 I73.9 Diagnosis Notes Drag & Drop to change diagnosis order Amputated toe of right foot 895.0 S98.131A Diagnosis Notes Drag & Drop to change diagnosis order Personal history of diabetic foot ulcer V12.29 Z86.31 Diagnosis Notes Drag & Drop to change diagnosis order Callus 700 L84 Diagnosis Notes Drag & Drop to change diagnosis order Onychomycosis 110.1 B35.1 Diagnosis Notes Drag & Drop to change diagnosis order Venous ulcer of left lower extremity without varicose veins 459.81 I87.2 Diagnosis Notes Drag & Drop to change diagnosis order Ulcer of left lower extremity, limited to breakdown of skin 707.10 L97.921 Diagnosis Notes Drag & Drop to change diagnosis order Venous ulcer of right lower extremity without varicose veins 459.81 I87.2 Diagnosis Notes Drag & Drop to change diagnosis order Ulcer of right lower extremity, limited to breakdown of skin 707.10 L97.911 Diagnosis Notes Drag & Drop to change diagnosis order 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 707.13 L97.323 Diagnosis Notes Drag & Drop to change diagnosis order Diabetic foot ulcer 250.80 E11.621 Diagnosis Notes Drag & Drop to change diagnosis order Diabetic leg ulcer 250.80 E11.622 Diagnosis Notes Drag & Drop to change diagnosis order Achilles rupture, left 845.09 S86.012A Diagnosis Notes Drag & Drop to change diagnosis order 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 707.13 L97.312 Diagnosis Notes Drag & Drop to change diagnosis order Achilles rupture, right 845.09 S86.011A Diagnosis Notes Drag & Drop to change diagnosis order Ulcer of left foot with fat layer exposed 707.15 L97.522 Diagnosis Notes Drag & Drop to change diagnosis order Skin ulcer of left great toe, limited to breakdown of skin 707.15 L97.521 Diagnosis Notes Drag & Drop to change diagnosis order Malnutrition 263.9 E46 Diagnosis Notes Drag & Drop to change diagnosis order 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 Nursing Documentation Pertinent Medical History: DM2, HTN, venous insufficiency, & heart failure Wound Etiology according to patient: wounds started February 2024 Pt had right great toe amputation June 18, 2023 Patient arrived via: Ambulatory with cane Home Care Company/Nursing Facility: [facility] Consent captured for debridement per Hu Pickard DPM and good until April 2025 Anticoagulant Therapy: ASA 81mg ACTIVE CARE PER PROVIDER: Hu Pickard DPM Application Dates: Grafts are complete 01/07/2023 Apligraf 01/15/2023 Apligraf 01/21/2023 Apligraf 01/27/2023 Apligraf 02/04/2023 Apligraf Wounds 1-38 previously closed 40 closed 44 closed 47 Closed WOUND # 45 - LOCATION: Right Anterior Lateral Lower Leg Cluster - (08/17/24 ) - closed 11/10/24, closed 11/24/24 WOUND ASSESSMENT: Refer to Provider's Wound Assessment Note VASCULAR ASSESSMENT BY PROVIDER: See provider wound assessment note CHF History: Yes as of February 2022, Dr. Sadler in Cardiology EDEMA: Right Foot: none Right ankle: 3+ Right Calf: none Left Foot: none Left ankle: 3+ Left Calf: none MEASUREMENTS: in CM Right Calf: 34.5 Right Ankle: 23.6 Left Calf: 32.2 Left Ankle: 23.8 Length: 43.0 not measured at visit WOUND PHOTOGRAPHY: no (date taken 11/17/24) DEBRIDEMENT PROCEDURE BY PROVIDER: Anesthetic Used: n/a Other procedure: N/A Specimen collected: N/A WOUND TREATMENT PER MD ORDER: Wounds cleansed by mechanical debridement to allow provider to visualize wound base 07/05/24: Patient reports wosening heart failure; states she has a lot more swelling in the legs and has had trouble breathing when trying to lay in bed to sleep; weight today = 247lbs (up almost 25lbs since 2023). Message sent to Ayan Wallis CNP with heart failure clinic. Patient states she has been speaking to Ayan via telephone regarding weight gain. 07/26/24: Pt with increased pain, drainage, redness noted to bilateral lower legs. New wounds present on bilateral lower legs. Pt stated that she did not come to appointment last week with Dr. Reyes due to not feeling well, stated that her legs were giving her issues. Discussed with pt the importance of not waiting to be seen if her Dr. Reyes would like pt to go to the ER. LEFT LOWER LEG WOUNDS *Silicone Allergy WOUND # 41 - LOCATION: Left Medial Ankle (NEW 07/26/24 L: 0.7 cm x W: 1.0 cm x D: 0.2 cm WOUND # 46 LOCATION: Left Lateral Lower Leg (NEW 10/12/24)) L: 2.8 cm x W: 0.9 cm x D: 0.2 cm Cleansed with: Dial soap and water, Dakins Applied to naya-wound skin:skin prep Applied to wound bed: adaptic, drawtex Covered and secured with: Clear VAC drape ABD pads, kerlix Secure with olegario wrap from behind the toes to 1 below the knee Lose to only secure the dressings - - - - - - - - - - - - - - - - - - - - - - - - - - - - - - - - - - - - - - - - - - - - - - - - - - - - - - - - - - - - - - - - - - - - - - - - WOUND VAC WOUNDS: 39, 42 & 43 WOUND # 39 LOCATION: Right Achilles L: 9.0 cm x W: 4.2 cm x D: 1.3 cm - Tendon exposed Track pad placed on the right anterior/medial lower leg Tunnel: in cm 0600: 3.5 to bone WOUND # 42 - LOCATION: Left Achilles (NEW 07/26/24) L: 10.5 cm x W: 3.0 cm x D: 1.2 cm - Tendon exposed WOUND # 43 - LOCATION: Left Dorsal / Lateral Foot -(NEW 07/26/24 L: 0.5 cm x W: 1.3 cm x D: 0.3 cm Cleansed with: Dial soap and water/ Dakins Applied to naya-wound skin:skin prep, duoderm, saul seal Applied to wound bed: acticoat, black foam, white foam to right achilles tunnel, followed by black foam Covered and secured with: drape, track pad, ABD pads, Kerlix, & Tape Secure with olegario wrap from behind the toes to 1 below the knee Lose to only secure dressings WOUND # 49 LOCATION: Left anterior lower leg - (new 11/10/24) 11/17/24 closed, but fragile L: 0.6 cm x W: 0.5 cm x D: 0.1 cm Cleansed with: Dial soap and water/Dakins Applied to naya-wound skin:skin prep Applied to wound bed: adaptic, drawtex Covered and secured with: VAC drape Secure with ABD pads, kerlix WOUND #50 LOCATION: Left dorsal foot/anterior ankle (NEW 11/17/24) closed 11/24/24 - - - - - - - - - - - - - - - - - - - - - - - - - - - - - - - - - - - - - - - - - - - - - - - - - - - - - - - - - - - - - - - - - - - - - - - - RIGHT LOWER LEG WOUNDS WOUND # 48 LOCATION: Right medial lower leg cluster - new 11/10/24 L: 0.3 cm x W: 0.8 cm x D: 0.1 cm Cleansed with: Dial soap and water/Dakins Applied to naya-wound skin:skin prep Applied to wound bed: adaptic, drawtex Covered and secured with: VAC drape Secure with ABD pads, kerlix WOUND #52 LOCATION: Right anterior lower leg (NEW 11/17/24) closed 11/24/24 WOUND #53 LOCATION: Right lateral lower leg (NEW 11/17/24) closed 11/24/24 WOUND # 51 LOCATION: Right anterior-medial ankle (NEW 11/17/24) closed 11/24/24 AOC: Right medial Foot maceration: L: 6.0 cm x W: 8.0 cm x maceration- applied betadine and drawtex secured with vac drape Treated today with CARLOS MANUEL cream and alginate and clear VAC drape COMPRESSION: NO COMPRESSION. Olegario wraps only to secure dressings SPECIAL NEEDS: Coordination of care - AVS faxed to [facility] via [facility] Emotional support N/A OR set-up N/A Yarn Examiner N/A Incontinence needs N/A [employer] company: ordered 03/01/24 [place] wraps, Supplies ordered 06/07/2024 x 30 days with 2 refills DISCHARGED in stable condition to: back to [facility] with a friend PLAN/ORDERS: Follow-up in the Wound Center with Dr Pickard once a week: 11/24/24 @ 10:30am Continue aggressive nutritional support to assist wound healing, focusing on increasing protein intake, keeping blood sugars stable/controlled Blood sugars must be kept below 150 for wound healing Patient is a High Fall Risk due - UP WITH ASSIST ONLY HAVE PATIENT ATTEMPT CHAIR YOGA EXERCISES - LIMITED ANKLE MOVEMENT WEIGHT BEARING TOLERATED Please give patient premiere diabetic protein shakes 2 x daily between meals OTHER EDUCATION: Dr. Pickard discussed continuing with the wound vac and new wound care for the new wounds noted where black foam was in direct contact with the patient's skin. Education performed regarding lymphedema/edema: n/a Elevation of extremity above the heart for 30 minutes three times daily and as needed Exercise such as writing the ABC's with your toes in the air, walking and/or calf pumps Wearing compression as ordered by provider Diet controlling of sodium as instructed by provider Use of medication to help control edema. UNIVERSAL PROTOCOL / SAFETY CHECKLIST Procedure to be Performed sharp debridement of Bilateral Lower Legs Sign In: 1100 A Moment of CARE was completed. Personnel directly involved with the procedure wore the appropriate PPE (Personal Protective Equipment). Patient/Surrogate Stated/Verified: PATIENT VERIFIED(optional for EMERGENT procedures): Patient name, Date of , Relevant allergies, and The intended procedure Time Out Communication: 1100 Intended patient and procedure match the source documents. Consent documented and matches the intended procedure. No relevant labs, photos, and/or imaging studies were applicable for review. Sign Out: 1125 SIGN OUT (optional for EMERGENT procedures): All instruments, equipment, possible retained foreign bodies accounted for. Dina Resendez RN/sv/ward documented in this encounter [facility] 11-24-2024 Note [facility] 11-24-2024 Instructions Dina Resendez RN - 11/24/2024 10:38 AM EDT WOUND CARE INSTRUCTIONS- Shade Brambila Wound location: Bilateral Lower Legs [facility] HOME: FAX: [phone] All changes to wound vac settings and wound care must be cleared through Dr. Pickard prior to any changes being made. The pressure must remain at 175 due to the amount of tracking that must be done for the wounds Clear vac drape to all skin where foam will be placed. It is imperative to have all skin covered with clear drape where the black foam will be placed as there are new wounds where the black foam was placed directly on the patient's skin PLEASE ATTEMPT TO FEED THE PATIENT A DIABETIC DIET Diabetic Premiere Protein Shakes 2 x daily between meals May ambulate with Assistance Physical Therapy to assess what level of aid the patient needs to ambulate with assistance Patient may bear weight 1. Wash your hands with soap and water before and after wound care. 2. Gather all supplies needed. 3. Clean bilateral lower legs and feet with Dial Soap and Water. After removing the old dressings, the bilateral lower legs and feet MUST be cleaned with Dial Soap and Water prior to using Vashe' or Dakins and applying any new dressings. Do not get the wounds wet in the shower. 4. Take a clean 4x4 gauze and moisten with a few drops of Vashe (blue bottle) or Dakins and allow to soak for 5-10 minutes, then remove and pat dry. Left medial Ankle, Left anterior lower leg, Left Lateral Lower leg, Right medial lower leg: - Apply to the wound base: Adaptic - Cover with: drawtex, clear VAC drape - Change your dressing: M-W-F and as needed to keep clean and dry - Secure with olegario wrap from behind the toes to 1 below the knee - OLEGARIO WRAPS ARE NOT FOR COMPRESSION - THEY ARE ONLY TO HELP KEEP DRESSINGS IN PLACE Right medial foot- area of concern - Apply betadine to keep area dry to prevent any maceration - Next apply drawtex and secure with vac drape. - Secure with olegario wrap from behind the toes to 1 below the knee - OLEGARIO WRAPS ARE NOT FOR COMPRESSION - THEY ARE ONLY TO HELP KEEP DRESSINGS IN PLACE Bilateral Achilles Alternate Dressing - Apply to the wound base: dakins moistened gauze packed in to the wound bed - Cover with: drawtex, 4x4's, abd pads - Secure dressing with: conform or kerlix wrap. tape - Change your dressing: Daily and as needed to keep clean and dry - Secure with olegario wrap from behind the toes to 1 below the knee - OLEGARIO WRAPS ARE NOT FOR COMPRESSION - THEY ARE ONLY TO HELP KEEP DRESSINGS IN PLACE Please apply a wound vac dressing on both achilles wounds & dorsal/lateral left foot wounds: KCL Recommended Settings: 175 mmHg, continuous Intensity High Continuous suction Wound Vac: Skin prep to naya-wound Duoderm to naya-wound of all wounds Eaken seal around the wound edge of each wound Apply white foam to right achilles tunnel (at 0600) Apply Acticoat to the entire wound base all wounds Clear vac drape to all skin where foam will be placed and for bridged areas: It is imperative to have all skin covered with clear drape where the black foam will be placed. Black foam to wound bed - be sure to not over pack wounds with foam Track pad to be placed avoiding all bony prominence Pad and protect skin from tubing at all times using ABD pads between patient's skin and VAC tubing Change dressing 3 x weekly and as needed to keep clean and dry Apply a loose loegario wrap to secure dressings - Avoid sitting with legs in a dependent position or standing for long periods of time. - Attempt to lay flat and elevate your legs above the level of your heart 2-3 times daily, for 30 minutes at a time. - Be sure to continue walking and/or calf pumps and exercises to mimic writing the alphabet with your foot, as instructed Foot care Many people with diabetes lose the feeling in their feet (neuropathy). Therefore, they might not know they have an injury that can lead to serious problems, such as foot removal (amputation). By taking care of your feet, most serious problems can be prevented. If you have problems checking your own feet, have a family member or friend help you. Easy steps to protect your feet: Check your feet every day for: dry or cracked skin, cuts, open sores, blisters, redness, swelling, corns, calluses, or toenail problems. Use a mirror if necessary. Report any problems to your doctor. Keep your feet clean and dry, especially between the toes. If your feet are dry or cracked use a moisturizing lotion at least daily but never between the toes. See your judicial clerk every three months for foot and nail care. Don't go barefoot. Wear shoes or slippers at all times. Wear comfortable shoes that fit well. Check inside your shoes for foreign objects or rough spots before putting on shoes. Always wear socks. Avoid using anything hot, such as heating pads, hot water bottles, hot tubs, or bath water. Check the temperature of bath water with your elbow not your foot. Take your shoes and socks off at every office visit to remind your doctor to check your feet. Also, never tape a dressing directly to the skin on your legs or feet. Instead, use a self-adherent bandage to avoid injuring the skin on your lower extremities If calluses form they can cause wound ulcers to appear under the callus, must be seen by [employer] every three months to prevent. Maintain controlled blood sugar, if blood sugar is consistently above 200 this can delay wound healing and aggravate neuropathy. To give your wound the best chance to heal: - Eat three balanced meals daily focusing on the protein - Control your blood sugar. Keep blood sugar less than 200 - Complete your wound care instructions as ordered - Vitamin C 500 mg twice daily - Multiple Vitamin Daily - Drink a protein shake daily - Premiere Clear or Glucerna for Diabetic patients, Nepro for renal patients and premiere for non-renal and non-diabetic patients Report any of the following signs and symptoms of infection to the Wound Center at [phone] or go to the Emergency Department: Fever or chills Increased drainage Green or yellow drainage Foul odor Increased pain Hardness around the wound Redness, warmth or swelling of the surrounding tissue Color change to the wound Evenings / Weekends / Holidays If you call the wound center at the phone number provided above, please leave a detailed message that includes your full name, birthday, and phone number. We are seeing patients during the day, so we will return your call within a 24-48 hr period in the order your call was received. There is not an on-call provider assigned to the wound center. If you have an emergency that needs to be addressed, please go to an Urgent Care or Emergency Room. Thank you for your cooperation and understanding. If you are feeling ill, please call to reschedule your appointment. If you believe your illness to be wound related, call and leave a message using the directions above describing your symptoms. If you cannot wait 24-48 hrs for a callback, please get evaluated in the nearest emergency department. PLAN/ORDERS: Follow-up in the Wound Center with Dr Pickard once a week: 11/24/24 @ 10:30am Continue aggressive nutritional support to assist wound healing, focusing on increasing protein intake, keeping blood sugars stable/controlled Blood sugars must be kept below 150 for wound healing Patient is a High Fall Risk due - UP WITH ASSIST ONLY HAVE PATIENT ATTEMPT CHAIR YOGA EXERCISES - LIMITED ANKLE MOVEMENT WEIGHT BEARING TOLERATED Please give patient premiere diabetic protein shakes 2 x daily between meals Hu Pickard DPM/zl/sv/a WOUND # 41 - LOCATION: Left Medial Ankle (NEW 07/26/24 L: 0.7 cm x W: 1.0 cm x D: 0.2 cm WOUND # 46 LOCATION: Left Lateral Lower Leg (NEW 10/12/24)) L:2.8 cm x W: 0.9 cm x D: 0.2 cm WOUND VAC WOUNDS: Wounds 39, 42 &43 WOUND # 39 LOCATION: Right Achilles L: 9.0 cm x W: 4.2 cm x D: 1.3 cm - Tendon exposed Tunnel: in cm 0600: 3.5 cm to bone WOUND # 42 - LOCATION: Left Achilles (NEW 07/26/24) L: 10.5 cm x W: 3.0 cm x D: 1.2 cm - Tendon exposed WOUND # 43 - LOCATION: Left Dorsal / Lateral Foot -(NEW 07/26/24 L: 0.5 cm x W: 1.3 cm x D: 0.3 cm WOUND # 48 LOCATION: Right medial lower leg cluster - new 11/10/24 L: 0.3 cm x W: 0.8 cm x D: 0.1 cm documented in this encounter [facility] 11-22-2024 Telephone encounter Note Blood pressure log reviewed and blood pressures appear to be under good control on average. No persistent highs or lows. No additions or changes needed at this time. Shanel Newell APRN.HEEL CURVER [facility] Work Phone: 11-22-2024 Miscellaneous Notes Blood pressure log reviewed and blood pressures appear to be under good control on average. No persistent highs or lows. No additions or changes needed at this time. Shanel Newell APRN.CNP Scanned into patient chart Scan on 11/22/2024 8:03 AM by Alexa Bonilla: [facility] BP log [facility] BP log received for Belinda Newell CNP for review. Placed in PSS basket for scanning. Messaged Belinda Newell CNP Placed copy on desk of Belinda Newell CNP documented in this encounter [facility] 11-22-2024 Telephone encounter Note Scanned into patient chart Scan on 11/22/2024 8:03 AM by Alexa Bonilla: [facility] BP log [facility] 11-21-2024 Telephone encounter Note [facility] BP log received for Belinda Newell CNP for review. Placed in PSS basket for scanning. Messaged Belinda Newell CNP Placed copy on desk of Belinda Newell CNP [facility] 11-20-2024 Telephone encounter Note Scheduled LHC on 11/29/[address] Patel . Please instruct patient on which medications to stop and/or keep taking. Patient will need ride home and someone overnight. Someone from production laborer will call the patient the day before to go over instructions. [facility] 11-20-2024 Miscellaneous Notes Scheduled LHC on 11/29/[address] Patel . Please instruct patient on which medications to stop and/or keep taking. Patient will need ride home and someone overnight. Someone from production laborer will call the patient the day before to go over instructions. documented in this encounter [facility] 11-20-2024 Note [facility] 11-20-2024 History of Presen t illness Narrative Date of Visit: 11/17/2024 Problem list reviewed. CHIEF COMPLAINT: check B/L lower leg wounds and NEW BL steiner wounds DM II A1c 7.4 (10/25/24) DLS 02/08/24 ADM 08/17/24 HISTORY OF PRESENT ILLNESS: Patient presents for BL leg wound check. She was admitted 08/17/24 and was DC to SNF where she is still at. She relates her insurance wouldn't cover it so she is self paying and planning on going to the nonskilled assistive living side soon. She is at [facility]. They have resumed the wound vac. She relates she has NEW wounds to BL shins where the wound vac was tracked to lower legs. She relates she told them that they need to put drape down first and they tried to do it but they weren't successful. She was DC on cipro and flagyl which she finished taking. Patient is taking protein drinks on own. She relates the facility isn't good about helping her dietary needs. They have started to give her the protein supplements though. She states pain is a 2/10. She relates she can't feel feet well and gets numbness. Referred by aircraft hydraulic equipment mechanic, Dr. Dasilva. Patient is DM and sees aircraft hydraulic equipment mechanic Denies N/V/F/C/D/SOB/CP/LP. PCN allergy Hx RT 3rd perc flexor tenotomy (07/26/23) HX R great toe amputation 06/18/23, excision tibial and fibular sesamoid, bone biopsy first met head. Right 2nd toe amputation and hallux I&D 10/28/22. Hx s/p RT toe amp 3,4,5 (DOS 10/14/23) DME DM inserts 08/24/23 rx circade wraps 08/14/22 CURRENT MEDICATIONS: oxyCODONE HCl Oral Tablet 5 MG (07/05/2024) Take 1 tablet every 12 hours as needed for 7 day(s) Percocet Oral Tablet 5-325 MG (07/20/2024) Take 1 tablet every 12 hours as needed for 7 day(s) oxyCODONE-Acetaminophen Oral Tablet 5-325 MG (10/28/2022) Ketorolac Tromethamine Ophthalmic Solution 0.5 % (04/26/2023) Accu-Chek Jose Plus In Vitro Strip (09/23/2022) Atorvastatin Calcium Oral Tablet 80 MG (06/13/2023) miSOPROStol Oral Tablet 200 MCG (06/15/2023) TAKE 2 TABLETS BY MOUTH THE DAY PRIOR TO PROCEDURE AT BEDTIME WITH FOOD Fluticasone Propionate Nasal Suspension 50 MCG/ACT (12/15/2022) USE 2 SPRAYS IN EACH NOSTRIL DAILY X1 WEEK,THEN 1 SPRAY IN EACH NOSTRIL DAILY THEREAFTER NEEDED Nitrofurantoin Monohyd Macro Oral Capsule 100 MG (02/08/2023) Fluconazole Oral Tablet 200 MG (03/20/2024) TAKE 1 TABLET EVERY DAY FOR 21 DAYS Bactrim DS Oral Tablet 800-160 MG (06/24/2023) Take 1 tablet twice a day for 10 day(s) Ofloxacin Ophthalmic Solution 0.3 % (03/30/2023) diazePAM Oral Tablet 10 MG (02/19/2022) TAKE 1 TABLET 60 MIN BEFORE TEST Atorvastatin Calcium Oral Tablet 40 MG (11/18/2022) FLUoxetine HCl Oral Capsule 40 MG (01/26/2022) Enalapril Maleate Oral Tablet 10 MG (01/26/2022) TAKE 1 TABLET BY MOUTH EVERY DAY Erythromycin Ophthalmic Ointment 5 MG/GM (02/09/2022) APPLY 1 A SMALL AMOUNT LEFT EYE 4 TIMES A DAY Atorvastatin Calcium Oral Tablet 20 MG (01/26/2022) TAKE 1 TABLET BY MOUTH EVERY DAY Spironolactone Oral Tablet 25 MG (06/15/2023) TAKE 0.5 TABLETS BY MOUTH ONCE DAILY. Jardiance Oral Tablet 25 MG (06/14/2023) TAKE 1 TABLET BY MOUTH EVERY DAY WITH BREAKFAST Furosemide Oral Tablet 40 MG (11/18/2022) HumuLIN R U-500 KwikPen Subcutaneous Solution Pen-injector 500 UNIT/ML (06/14/2023) INJECT 40 UNITS SUBCUTANEOUSLY AT BREAKFAST, 100 UNITS AT LUNCH, 80 UNITS AT SUPPER. metFORMIN HCl Oral Tablet 1000 MG (11/23/2022) TAKE 1 TABLET BY MOUTH TWICE DAILY WITH MEALS. E11.3599 ALLERGIES: Amoxicillin Unknown Band-Aid [place] Surg Dressing Other Bandaging Tape Other PAST MEDICAL HISTORY: Podiatry History remarkable for Foot Numbness, Fungal Nails, Leg or Foot Ulcers. The patient has a past medical history of Arthritis, Depression, DM-Medication Dependent, Poor Circulation. Neuropathy High Cholesterol SURGICAL HISTORY: Hand Tonsils HOSPITALIZATIONS: None Noted SOCIAL HISTORY: Smoking Status: Never smoker; Last Reviewed: 12/08/2023 Alcohol use: social drinker No drug use Social History Reviewed (01/16/2021 11:20:18 AM EST) FAMILY HISTORY: There is a family history of Denial of any knowledge of significant family history. Denial of any knowledge of significant family history Family History Reviewed (01/16/2021 11:20:19 AM EST) REVIEW OF SYSTEMS: Psychologic: Admits to No psych symptoms. Review of systems otherwise negative PHYSICAL EXAMINATION: Vital Signs: Weight 235 lbs; Height 5 ft 8 in; BMI 35.7 11/13/2024 7:58 AM (EST) Temperature 98.6 F; Pulse Rate 100 bpm; Blood Pressure 120 / 80 mm/Hg Vascular Exam: DP pulses of the RIGHT and LEFT foot are +1/4 PT pulses of the RIGHT and LEFT foot are +1/4 CFT is within normal limits, less than 3s to all digits, both feet. Skin temperature from proximal to distal is warm to warm, both feet. BL LE edema Dermatologic Exam: LEFT hallux wound healed and LEFT anterior lower leg wound healed LEFT medial ankle wound predebridement measures 0.6x1.0x0.1cm and post debridement measures 0.7x1.2x0.1cm with 70:30 granular fibrotic base, minimal surrounding slough, no surrounding edema and erythema, no purulence expressed, no probe to bone, MILD malodor, moderate serosanginous drainage. Into level of SUBCUTANEOUS tissue. LEFT lateral lower leg wound predebridement measures 3x0.8x0.1cm and post debridement measures 3.2x0.9x0.2cm with 70:30 granular fibrotic base, surrounding slough, no erythema, no purulence, no probe to bone, MILD malodor, moderate serosanguinous drainage. Into level of SUBCUTANEOUS TISSUE, partial thickness LEFT posterior Achilles lower leg wound predebridement measures 10.3x3.5x1.2cm and post debridement measures 10.4x3.6x1.4cm with 65:35 granular fibrotic base, surrounding slough, no surrounding edema and erythema, no purulence expressed, no probe to bone-exposed achilles tendon with complete RUPTURE, MILD malodor, moderate serosanginous drainage. Into level of TENDON. LEFT dorsal lateral foot wound predebridement measures 0.7x0.8x0.1cm and post debridement measures 0.6x1.0x0.5cm with 70:30 granular fibrotic base, no surrounding callus, no surrounding edema and erythema, no purulence expressed, no probe to bone-exposed extensor tendon, MILD malodor, moderate serosanginous drainage. Into level of TENDON tissue LEFT dorsal foot/anterior ankle wound predebridement measures 0.3x3.6x0.1cm and post debridement measures 0.4x3.8x0.1cm with 80:20 granular fibrotic base, surrounding slough, no erythema, no purulence, no probe to bone, MILD malodor, moderate serosanguinous drainage. Into level of SUBCUTANEOUS TISSUE, partial thickness LEFT anterior lower leg wound healed RIGHT posterior Achilles lower leg wound predebridement measures 9.8x3.8x1.3cm and post debridement measures 10x4.0x1.5cm with tunnelling at 6 o'clock for 3.5cm, 60:40 granular fibrotic base, surrounding slough, no surrounding edema and erythema, no purulence expressed, YES probe to bone-Exposed achilles tendon posteriorly with fraying and complete RUPTURE and tracking to calcaneus, MILD malodor, moderate serosanginous drainage. Into level of BONE. RIGHT medial lower leg cluster wound predebridement measures 0.2x0.2x0.1cm and post debridement measures 0.3x0.3x0.1cm with 80:20 granular fibrotic base, surrounding slough, no surrounding edema and erythema, no purulence expressed, no probe to bone, no malodor, moderate serosanginous drainage. Into level of SUBCUTANEOUS layer. RIGHT anterior medial ankle wound predebridement measures 3.3x6.8x0.1cm and post debridement measures 3.5x7.0x0.1cm with 50:50 granular fibrotic base, surrounding slough, no erythema, no purulence, no probe to bone, MILD malodor, moderate serosanguinous drainage. Into level of SUBCUTANEOUS TISSUE, partial thickness RIGHT anterior lower leg wound predebridement measures 1.8x0.3x0.1cm and post debridement measures 2.0x0.4x0.1cm with 50:50 granular fibrotic base, surrounding slough, no erythema, no purulence, no probe to bone, MILD malodor, moderate serosanguinous drainage. Into level of SUBCUTANEOUS TISSUE, partial thickness RIGHT lateral lower leg wound predebridement measures 0.2x0.2x0.1cm and post debridement measures 0.3x0.3x.1cm with 70:30 granular fibrotic base, surrounding slough, no erythema, no purulence, no probe to bone, MILD malodor, moderate serosanguinous drainage. Into level of SUBCUTANEOUS TISSUE, partial thickness RIGHT medial heel maceration, area of concern, no open wound, measures 6x8cm LEFT foot 2nd toe tuft hyperkeratotic tissue Nails 2-5 left are thickened, elongated and discolored with subungual debris. The nails are greater than .3mm in thickness. The discoloration is yellowish in color. Innerspaces 1-4 LT are clean dry and intact. Skin texture and turgor are decreased. absent or decreased hair growth bilateral. chronic lower leg red hyperpigmentation Neurologic Exam: Comments/Other Findings: Vibratory sensations decreased LT, Protective sensations absent LT tested with 5.07 monofilament, and light, sharp, and temperature sensations intact LT. Normal Babinski test noted bl foot after testing Orthopedic Exam: Additional Orthopedic Findings: RIGHT foot toe amputations 1,2,3,4,5 LEFT 2nd hammertoe contracture semi- rigid BL foot with absent plantar flexion 0/5 muscle strength with palpable rupture to achilles tendon DIAGNOSIS: Type II diabetes mellitus with neurological manifestations PVD (peripheral vascular disease) Amputated toe of right foot Personal history of diabetic foot ulcer Callus Onychomycosis Venous ulcer of left lower extremity without varicose veins Ulcer of left lower extremity, limited to breakdown of skin Venous ulcer of right lower extremity without varicose veins Ulcer of right lower extremity, limited to breakdown of skin 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 Diabetic foot ulcer Diabetic leg ulcer Achilles rupture, left 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 Achilles rupture, right Ulcer of left foot with fat layer exposed Skin ulcer of left great toe, limited to breakdown of skin Malnutrition 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 No fractures or dislocations noted. No soft tissue emphysema noted. No osteopenia or sclerosis noted. tibial and fibular sesamoid excised, there is small calcified piece of fibular sesamoid bone noted to plantar lateral 1st met. RT foot amp at MTPJ 1,2,3,4,5. no lytic lesions. no soft tissue gas noted. 08/17/24 Xray left foot: No radiographic presence of OM 08/17/24 Xray tib/fib left leg: No radiographic presence of OM 08/17/24 Xray tib/fib right leg: No radiographic presence of OM 08/17/24 CRP: 13.6 and 08/18/24 ESR: 97 04/05/24 PVR b/l leg: Left MANJEET 0.9 and Right 0.95 08/18/24 Left leg wound culture: Few pseudomonas aeruginosa FINAL 08/18/24 MRI BL LE: 1. No drainable soft tissue abscess or evidence for osteomyelitis 2. Diffuse edema/cellulitis and fatty muscle atrophy with nonspecific myositis. 10/01/24 albumin: 3.3 NEW LEFT dorsal foot/anterior ankle wound. NEW RIGHT anterior medial ankle wound. NEW RIGHT anterior lower leg wound. NEW RIGHT lateral lower leg wound. RIGHT medial lower leg cluster wound improved. LEFT lateral lower leg ulcer improved. LEFT posterior achilles lower leg ulcer improved. LEFT dorsal lateral foot cluster ulcer worsened. LEFT medial ankle ulcer improved. RIGHT posterior achilles lower leg ulcer stable. RIGHT anterior lateral lower leg cluster ulcer healed. LEFT hallux ulcer healed. LEFT anterior lower leg ulcer healed. LEFT anterior lower leg cluster wound healed. LEFT dorsal foot/anterior ankle wound, RIGHT anterior medial ankle wound, RIGHT anterior lower leg wound, RIGHT lateral lower leg wound, LEFT medial ankle ulcer, LEFT lateral lower leg ulcer, RIGHT medial lower leg cluster ulcer treated with sharp excisional debridement carried out of the wound with non selective sharp excisional debridement past the dermis into SUBCUTANEOUS level with use of curette and 15 scalpel blade. Devitalized tissue removed. We then flushed out the wound with wound wash sterile saline. Area numbed with lidocaine gel if sensate prior. LEFT dorsal lateral foot ulcer, LEFT posterior achilles lower leg ulcer treated with sharp excisional debridement carried out of the wound with non selective sharp excisional debridement past the dermis into FASCIA and FAT level with use of curette and 15 scalpel blade. Devitalized tissue removed and we then flushed out the wound with wound wash sterile saline. Area numbed with lidocaine gel if sensate prior. RIGHT posterior Achilles lower leg ulcer treated with sharp excisional debridement carried out of the wound with non selective sharp excisional debridement past the dermis into BONE level with use of curette, bone rongeur and 15 scalpel blade. Devitalized tissue removed and we then flushed out the wound with wound wash sterile saline. Area numbed with lidocaine gel if sensate prior. Discussed importance in offloading, proper nutrition including blood sugar control and getting enough protein and vitamins, infection prevention, and proper wound care in wound healing. Also discussed detrimental impact of smoking on healing. Reviewed proper wound care with patient. To not soak wound but to clean appropriately. To watch for signs of infection both local and systemic. These were reviewed with the patient. If seen to contact office or go to ED. To continue wound care consisting of washing the wound with soap and water or vashe solution soaked gauze for 3-5 minutes. Then to apply dressing consisting of BL achilles wounds and LEFT dorsal lateral foot wound adaptic with wound vac. To the other wounds apply adaptic and gauze wrap or if will be incorporated into wound drape adaptic and drawtex. To change 3 times a week. Discussed NEW wounds to legs caused from improperly applied wound vacs. Discussed the foam should never have direct contact with skin as this will cause skin breakdown as seen today. Upon removal of wound vac no drape was placed between skin and black foam with right being worse than left. Discussed can apply more than just the size of the foam of drape to skin to allow for larger margin of error when applying so no foam will touch skin. Cont BL wound vacs. Discussed need to fill in the deficit from BL achilles rupture as well as to get coverage over achilles. Discussed wound vac is best option. Discussed would need to fill in wounds a bit more with wound vac before considering grafting. Discussed as bridging away from wound site keeping suction at 175mmHg to best effectively heal area. Discussed with both achilles ruptured she will struggle with push off in gait. Discussed achilles likely ruptured due to chronic ulceration with infections and drying out of tendon. Discussed if we can get her healed she will need AFO to aid in walking. Discussed she is at high risk for BKA BL. Discussed she can weight bear as tolerated. Discussed need assist for activities as she is a high fall risk. Discussed limiting motion at ankle joint to stop tugging on wounds to aid in healing. Discussed need to balance this with maintaining muscle. Discussed need for better nutrition Patient educated on the importance of proper nutrition to help optimize healing. Discussed eating three balanced meals daily and meal preparation. Discussed importance of high protein intake. Discussed supplementation drinks such as ensure, glucerna, nepro, tamiko. Discussed need for blood sugar control, proper vitamin intake whether dietary or through supplementation. Discussed Vitamin C, Multi Vitamin, zinc, and magnesium supplementation. Discussed may need to watch sodium intake as well especially if patient experiences swelling. Offered nutrition referral. Patient taking protein supplement drink BID between meals Patient relates she would like to continue care at [facility] with me managing her wounds with nurses at facility helping with dressing changes only. Future plan to take to OR for possible grafting if can fill in some depth with wound vac vs office grafting Follow up in 1 week for check with continued monitoring at SNF and see if started working with PT or got moved to nonskilled assistive living Bilateral Achilles Alternate Dressing - Apply to the wound base: dakins moistened gauze packed in to the wound bed - Cover with: drawtex, 4x4's, abd pads - Secure dressing with: conform or kerlix wrap. tape - Change your dressing: Daily and as needed to keep clean and dry - Secure with olegario wrap from behind the toes to 1 below the knee - OLEGARIO WRAPS ARE NOT FOR COMPRESSION - THEY ARE ONLY TO HELP KEEP DRESSINGS IN PLACE Please apply a wound vac dressing on both achilles wounds & dorsal/lateral left foot wounds: KCL Recommended Settings: 175 mmHg, continuous Intensity High Continuous suction Wound Vac: Skin prep to naya-wound Duoderm to naya-wound of all wounds Eaken seal around the wound edge of each wound Apply white foam to right achilles tunnel (at 0600) Apply adaptic to the entire wound base all wounds Clear vac drape to all skin where foam will be placed and for bridged areas: It is imperative to have all skin covered with clear drape where the black foam will be placed. Black foam to wound bed - be sure to not over pack wounds with foam Track pad to be placed avoiding all bony prominence Pad and protect skin from tubing at all times using ABD pads between patient's skin and VAC tubing Change dressing 3 x weekly and as needed to keep clean and dry Apply a loose olegario wrap to secure dressings - Avoid sitting with legs in a dependent position or standing for long periods of time. - Attempt to lay flat and elevate your legs above the level of your heart 2-3 times daily, for 30 minutes at a time. - Be sure to continue walking and/or calf pumps and exercises to mimic writing the alphabet with your foot, as instructed Type II diabetes mellitus with neurological manifestations 250.60 E11.49 Diagnosis Notes Drag & Drop to change diagnosis order PVD (peripheral vascular disease) 443.9 I73.9 Diagnosis Notes Drag & Drop to change diagnosis order Amputated toe of right foot 895.0 S98.131A Diagnosis Notes Drag & Drop to change diagnosis order Personal history of diabetic foot ulcer V12.29 Z86.31 Diagnosis Notes Drag & Drop to change diagnosis order Callus 700 L84 Diagnosis Notes Drag & Drop to change diagnosis order Onychomycosis 110.1 B35.1 Diagnosis Notes Drag & Drop to change diagnosis order Venous ulcer of left lower extremity without varicose veins 459.81 I87.2 Diagnosis Notes Drag & Drop to change diagnosis order Ulcer of left lower extremity, limited to breakdown of skin 707.10 L97.921 Diagnosis Notes Drag & Drop to change diagnosis order Venous ulcer of right lower extremity without varicose veins 459.81 I87.2 Diagnosis Notes Drag & Drop to change diagnosis order Ulcer of right lower extremity, limited to breakdown of skin 707.10 L97.911 Diagnosis Notes Drag & Drop to change diagnosis order 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 707.13 L97.323 Diagnosis Notes Drag & Drop to change diagnosis order Diabetic foot ulcer 250.80 E11.621 Diagnosis Notes Drag & Drop to change diagnosis order Diabetic leg ulcer 250.80 E11.622 Diagnosis Notes Drag & Drop to change diagnosis order Achilles rupture, left 845.09 S86.012A Diagnosis Notes Drag & Drop to change diagnosis order 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 707.13 L97.312 Diagnosis Notes Drag & Drop to change diagnosis order Achilles rupture, right 845.09 S86.011A Diagnosis Notes Drag & Drop to change diagnosis order Ulcer of left foot with fat layer exposed 707.15 L97.522 Diagnosis Notes Drag & Drop to change diagnosis order Skin ulcer of left great toe, limited to breakdown of skin 707.15 L97.521 Diagnosis Notes Drag & Drop to change diagnosis order Malnutrition 263.9 E46 Diagnosis Notes Drag & Drop to change diagnosis order 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 Nursing Documentation Pertinent Medical History: DM2, HTN, venous insufficiency, & heart failure Wound Etiology according to patient: wounds started February 2024 Pt had right great toe amputation June 18, 2023 Patient arrived via: Ambulatory with [facility]/Nursing Facility: [facility] Consent captured for debridement per Hu Pickard DPM and good until April 2025 Anticoagulant Therapy: ASA 81mg ACTIVE CARE PER PROVIDER: Hu Pickard DPM Application Dates: Grafts are complete 01/07/2023 Apligraf 01/15/2023 Apligraf 01/21/2023 Apligraf 01/27/2023 Apligraf 02/04/2023 Apligraf Wounds 1-38 previously closed 40 closed 44 closed 47 Closed WOUND ASSESSMENT: Refer to Provider's Wound Assessment Note VASCULAR ASSESSMENT BY PROVIDER: See provider wound assessment note CHF History: Yes as of February 2022, Dr. Sadler in Cardiology EDEMA: Right Foot: 1+ Right Calf: 2+ Left Foot: trace Left Calf: 1+ MEASUREMENTS: in CM Right Calf: 36.0 Right Ankle: 25.0 Left Calf: 33.5 Left Ankle: 25.0 Length: 43.0 not measured at visit WOUND PHOTOGRAPHY: yes (date taken 11/17/24) DEBRIDEMENT PROCEDURE BY PROVIDER: Anesthetic Used: n/a Other procedure: N/A Specimen collected: N/A WOUND TREATMENT PER MD ORDER: Wounds cleansed by mechanical debridement to allow provider to visualize wound base 07/05/24: Patient reports wosening heart failure; states she has a lot more swelling in the legs and has had trouble breathing when trying to lay in bed to sleep; weight today = 247lbs (up almost 25lbs since 2023). Message sent to Ayan Wallis CNP with heart failure clinic. Patient states she has been speaking to Ayan via telephone regarding weight gain. 07/26/24: Pt with increased pain, drainage, redness noted to bilateral lower legs. New wounds present on bilateral lower legs. Pt stated that she did not come to appointment last week with Dr. Reyes due to not feeling well, stated that her legs were giving her issues. Discussed with pt the importance of not waiting to be seen if her Dr. Reyes would like pt to go to the ER. LEFT LOWER LEG WOUNDS *Silicone Allergy WOUND # 41 - LOCATION: Left Medial Ankle (NEW 07/26/24 L: 0.7 cm x W: 1.2 cm x D: 0.1 cm WOUND # 46 LOCATION: Left Lateral Lower Leg (NEW 10/12/24)) L: 3.2 cm x W: 0.9 cm x D: 0.2 cm Cleansed with: Dial soap and water, Vashe Applied to naya-wound skin:skin prep Applied to wound bed: adaptic, drawtex Covered and secured with: Clear VAC drape ABD pads, kerlix Secure with olegario wrap from behind the toes to 1 below the knee Lose to only secure the dressings - - - - - - - - - - - - - - - - - - - - - - - - - - - - - - - - - - - - - - - - - - - - - - - - - - - - - - - - - - - - - - - - - - - - - - - - WOUND VAC WOUNDS: 39, 42 & 43 WOUND # 39 LOCATION: Right Achilles L: 10.0 cm x W: 4.0 cm x D: 1.5 cm - Tendon exposed Track pad placed on the right anterior/medial lower leg Tunnel: in cm 0600: 3.5 to bone WOUND # 42 - LOCATION: Left Achilles (NEW 07/26/24) L: 10.4 cm x W: 3.6 cm x D: 1.4 cm - Tendon exposed WOUND # 43 - LOCATION: Left Dorsal / Lateral Foot -(NEW 07/26/24 L: 0.6 cm x W: 1.0 cm x D: 0.5 cm Cleansed with: Dial soap and water/Vashe Applied to naya-wound skin:skin prep, duoderm, saul seal Applied to wound bed: adaptic, black foam, white foam to right achilles tunnel, followed by black foam Covered and secured with: drape, track pad, ABD pads, Kerlix, & Tape Secure with olegario wrap from behind the toes to 1 below the knee Lose to only secure dressings WOUND # 49 LOCATION: Left anterior lower leg - (new 11/10/24) 11/17/24 closed, but fragile Cleansed with: Dial soap and water/Vashe Applied to naya-wound skin: Applied to wound bed: adaptic, drawtex Covered and secured with: VAC drape Secure with olegario wrap from behind the toes to 1 below the knee WOUND #50 LOCATION: Left dorsal foot/anterior ankle (NEW 11/17/24) L: 0.4 cm x W: 3.8 cm x D: 0.1 cm Cleansed with: Dial soap and water/Vashe Applied to naya-wound skin:skin prep Applied to wound bed: Carlos Manuel cream, alginate Covered and secured with: clear VAC drape Secure with olegario wrap from behind the toes to 1 below the knee - - - - - - - - - - - - - - - - - - - - - - - - - - - - - - - - - - - - - - - - - - - - - - - - - - - - - - - - - - - - - - - - - - - - - - - - RIGHT LOWER LEG WOUNDS WOUND # 45 - LOCATION: Right Anterior Lateral Lower Leg Cluster - (08/17/24 ) - closed 11/10/24 WOUND # 48 LOCATION: Right medial lower leg cluster - new 11/10/24 L: 0.3 cm x W: 0.3 cm x D: 0.1 cm WOUND #52 LOCATION: Right anterior lower leg (NEW 11/17/24) L: 2.0 cm x W: 0.4 cm x D: 0.1 cm WOUND #53 LOCATION: Right lateral lower leg (NEW 11/17/24) L: 0.3 cm x W: 0.3 cm x D: 0.1 cm Cleansed with: Dial soap and water/Vashe Applied to naya-wound skin:skin prep Applied to wound bed: adaptic, drawtex Covered and secured with: VAC drape Secure with ABD pads, kerpriyankax WOUND # 51 LOCATION: Right anterior-medial ankle (NEW 11/17/24) L: 3.5 cm x W: 7.0 cm x D: 0.1 cm Cleansed with: Dial soap and water/Vashe Applied to naya-wound skin: skin prep Applied to wound bed: Carlos Manuel cream, alginate Covered and secured with: VAC drape AOC: Right medial Foot maceration: L: 6.0 cm x W: 8.0 cm x maceration Treated today with CARLOS MANUEL cream and alginate and clear VAC drape COMPRESSION: NO COMPRESSION. 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 Examiner N/A Incontinence needs N/A [employer] company: ordered 03/01/24 Farrow wraps, Supplies ordered 06/07/2024 x 30 days with 2 refills DISCHARGED in stable condition to: back to [facility] with a friend PLAN/ORDERS: Follow-up in the Wound Center with Dr Pickard once a week: 11/24/24 @ 10:30am Continue aggressive nutritional support to assist wound healing, focusing on increasing protein intake, keeping blood sugars stable/controlled Blood sugars must be kept below 150 for wound healing Patient is a High Fall Risk due - UP WITH ASSIST ONLY HAVE PATIENT ATTEMPT CHAIR YOGA EXERCISES - LIMITED ANKLE MOVEMENT WEIGHT BEARING TOLERATED Please give patient premiere diabetic protein shakes 2 x daily between meals OTHER EDUCATION: Dr. Pickard discussed continuing with the wound vac and new wound care for the new wounds noted where black foam was in direct contact with the patient's skin. Education performed regarding lymphedema/edema: n/a Elevation of extremity above the heart for 30 minutes three times daily and as needed Exercise such as writing the ABC's with your toes in the air, walking and/or calf pumps Wearing compression as ordered by provider Diet controlling of sodium as instructed by provider Use of medication to help control edema. UNIVERSAL PROTOCOL / SAFETY CHECKLIST Procedure to be Performed sharp debridement of Bilateral Lower Legs Sign In: 1100 A Moment of CARE was completed. Personnel directly involved with the procedure wore the appropriate PPE (Personal Protective Equipment). Patient/Surrogate Stated/Verified: PATIENT VERIFIED(optional for EMERGENT procedures): Patient name, Date of , Relevant allergies, and The intended procedure Time Out Communication: 1100 Intended patient and procedure match the source documents. Consent documented and matches the intended procedure. No relevant labs, photos, and/or imaging studies were applicable for review. Sign Out: 1125 SIGN OUT (optional for EMERGENT procedures): All instruments, equipment, possible retained foreign bodies accounted for. Shelley Kenny RN/yesica/elliot Current HBOT Status: Active or Complete - see screening below WOUND CENTER HYPERBARIC OXYGEN THERAPY SCREENING 1. Is the patient diabetic? (If No, skip to question 5) Yes 2. Does the patient have a lower extremity wound? Yes 3. Is there exposed/involved tendon or bone? yes 4. Has the wound been present for 30 days? Yes If Yes to ALL questions above, consult the Hyperbaric Center 5. Has the patient been diagnosed with osteomyelitis? No 6. Has the patient had a previous skin graft or flap at the wound? No 7. Has the patient had or been offered vascular intervention/evaluation? No 8. Does the patient have a wound at an amputation site? Yes 9. Has the patient had radiation therapy at the site of the problem? No If Yes to ANY of questions 5-9, consult the Hyperbaric Center Shelley Kenny RN/yesica/elliot documented in this encounter [facility] 11-17-2024 Instructions Shanel Newell APRN.DEBORAH - 11/17/2024 4:06 PM EDT It was great to see you today, as we discussed: 1. Your echocardiogram during admission in July showed a section of your heart muscle that is not moving as well as other sections. This is concerning for blocked heart arteries. I will talk with Dr. Spangler more about this and update you on next steps via [employer] 2. Please have your facility fax over your blood pressures from the last few checks so I can see how you are running given you are a bit low in the office today. Fax number is [phone] 3. You would benefit from treatment of your sleep apnea 4. Continue fluid restriction of 64 ounces a day 5. Follow up in 3-4 months or sooner if need arises documented in this encounter [facility] 11-17-2024 History of Presen t illness Narrative Images from the original note were not included. [facility] [place] [facility] Department of Cardiovascular Medicine SECTION OF CLINICAL CARDIOLOGY OUTPATIENT VISIT DATE November 17, 2024 OUTPATIENT VISIT TYPE ESTABLISHED CHIEF COMPLAINT: Follow up HISTORY OF PRESENT ILLNESS: Ms. Brambila is a 64 year old female with history of chronic HFpEF, RWMA, HTN, HLD, peripheral vascular disease, NELLY, and diabetes mellitus type 2 who presents today for a cardiovascular medicine follow-up visit. She was last seen in the office on 03/06/2024 okay at which time she was noted to be above her dry weight with some mild signs of volume overload. She was asked to take as needed Lasix for 2 to 3 days until weight returns to baseline. Plan was for follow-up in 6 months with continue follow-up with heart failure clinic in between. She was subsequently admitted to [facility] in July and August for complications secondary to nonhealing wounds on her bilateral lower legs. During July admission she was seen by cardiology due to concern for acute on chronic HFpEF for which she was diuresed with IV Lasix. Echo during admission showed new RWMA and reduction in EF for which cardiology was consulted and recommended OP work up. She was again seen in [place] ED in September for wound bleeding after wound vac was removed. Her lab work an imaging were therapeutic and she was discharged home without further intervention. Since her last office visit and subsequent hospitalizations she has been doing relatively well for the last few months. She currently is weightbearing but only for transfers. She is starting to work with physical therapy 3 times a week in which they help her walk. She did this today without any exertional complaints. Her lower extremity edema has been stable. She sleeps at a slight incline as she has some shortness of breath when completely flat. Breathing feels better if she lays on her side. She continues with hyperbaric therapy and wound clinic for her lower extremity wounds. Her blood pressure is being checked at the facility as well as at hyperbaric therapy but she is unsure what it has been running. She denies any chest pain, palpitations, lightheadedness, dizziness, presyncope, or syncope. 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 Vitamin D deficiency 01/05/2017 PAST SURGICAL HISTORY Procedure Laterality Date AMPUTATION TOE,MT-P JT Right 07/2022 Hallux AMPUTATION TOE,MT-P JT Right 10/2023 removal of remaining right toes DILATION & CURETTAGE DX&/THER NONOBSTETRIC x3 EXTENSIVE HAND SURGERY Dupuytren contracture TONSILLECTOMY HX TOTAL ABDOM HYSTERECTOMY 08/2023 with BSO Social History Tobacco Use Smoking status: Never Passive exposure: Never Smokeless tobacco: Never Vaping Use Vaping status: Never Used Substance Use Topics Alcohol use: Not Currently Comment: Occ - 3 glasses of wine a year Drug use: No FAMILY HISTORY Problem Relation Age of Onset Hypertension Mother other (polycystic kidney disease) Mother Heart Father CHF Hypertension Father Diabetes Brother other (testicular cancer) Brother Coronary Artery Disease Brother MD and at age 45 other (CHF) Paternal Grandmother Cancer Paternal Aunt breast CA ALLERGIES: ALLERGIES Allergen Reactions Amoxicillin Unknown Patient does not remember reaction Silicone Rash, Itching Dressing with silicone border caused inflammation where the bandage was placed Codeine Intolerance Patient states Makes her Hyper Morphine Intolerance Difficulty waking up / groggy MEDICATIONS: GLUCAGON EMERGENCY KIT, HUMAN, INJECTION by INJECTION(UNSPECIFIED PARENTERAL ROUTES) route. sodium phosphate,mono-dibasic (ENEMA RECTAL) by RECTAL route as needed (constipation). may be given daily, if needed ferrous sulfate 325 mg (65 mg iron) tablet Take 325 mg by mouth once daily. bisacodyl (DULCOLAX) 10 mg supp 10 mg by RECTAL route once daily as needed for constipation. magnesium hydroxide (MOM) 400 mg/5 mL suspension Take 30 mL by mouth once daily as needed for constipation. senna-docusate (SENEXON-S) 8.6-50 mg per tablet Take 1 tablet by mouth as needed for constipation. naloxone (NARCAN) 1 mg/mL for intranasal administration 1 mg by INTRANASAL route as needed for known or suspected opioid overdose. Once for opioid overdose may repeat every 2-3 min insulin lispro 100 unit/mL injection Sliding scale- Blood sugar 111-150 Give 0 units 151-200 Give 1 unit 201-250 Give 2 units 251-300 Give 3 units 301-350 Give 4 units 351-400 Give 5 units Greater than 400 Give 5 units and Notify Provider fluticasone (FLONASE) 50 mcg/actuation nasal spray Use 2 Sprays in each nostril once daily. ondansetron (ZOFRAN) 4 mg tablet Take 4 mg by mouth every 8 hours as needed for nausea/vomiting. traMADol (ULTRAM) 50 mg tablet Take 50 mg by mouth every 6 hours as needed for pain. acetaminophen (TYLENOL) 325 mg tablet Take 2 tablets by mouth every 6 hours as needed for fever (specify temp.) or pain (temp >100.1F). senna (SENOKOT) 8.6 mg tab Take 1 tablet by mouth two times a day. empagliflozin (JARDIANCE) 25 mg tablet TAKE 1 TABLET BY MOUTH EVERY DAY WITH BREAKFAST ACCU-CHEK JOSE PLUS TEST STRP test strip USE TO TEST BLOOD GLUCOSE 3 TIMES DAILY enalapril (VASOTEC) 20 mg tablet Take 0.5 tablets by mouth two times a day. atorvastatin (LIPITOR) 80 mg tablet take 1 tablet by mouth every day furosemide (LASIX) 20 mg tablet Take 20 mg by mouth once daily. 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 aspirin, enteric coated (ASPIRIN, ENTERIC COATED) 81 mg EC tablet Take 81 mg by mouth once daily. cyanocobalamin, vitamin B-12, 1,000 mcg/mL kit 1,000 mcg by INJECTION(UNSPECIFIED PARENTERAL ROUTES) route once every month. Zinc 50 mg tab Take 50 mg by mouth once daily. multivit,thx,calcium,iron,mins (MULTIVITAMIN AND MINERAL ORAL) Take 1 tablet by mouth once daily. FLUoxetine (PROZAC) 40 mg capsule Take by mouth q 24 HR. lancets (ONE TOUCH DELICA) 33 gauge USE TO BLOOD GLUCOSE 3 TIMES DAILY. INSULIN DEPENDENT E11.3299, E11.65, Z79.4 insulin needles, DISPOSABLE, (BD INSULIN PEN NEEDLE UF) 31 gauge x 5/16 FOUR DAILY FOR INSULIN INJECTIONS. Blood-Glucose Meter [facility] Use to test blood glucose 3 times daily. Insulin Dependent E11.3299, E11.65, Z79.4 Cholecalciferol, Vitamin D3, 50 mcg (2,000 unit) cap Take 1 tablet by mouth once daily. Blood Pressure Monitor Please monitor blood pressure 1-2 hours after taking morning medications. REVIEW OF SYSTEMS: CARD: See HPI GENERAL: Negative for: Weight loss or gain, Fever and/or Chills HEENT: Negative for: Headache, Impaired Vision, Hearing Impairment, Ringing in Ears, Nosebleeds, Bleeding Gums +Glasses NECK: Negative for: Swelling, Pain, Stiffness RESPIRATORY: Negative for: Cough, Blood in Sputum, Shortness of breath, Wheezing, Apnea GASTROINTESTINAL: Negative for: Nausea, Vomiting, Diarrhea, Blood in stool, or Dark black stools MUSCULOSKELETAL: +Arthralgias NEUROLOGIC: Negative for: focal numbness/weakness, headaches, visual changes, ataxia, speech/language loss SKIN: +Lower extremity wounds HEMATOLOGICAL/LYMPHATIC: Negative for: Easy bruising , Easy bleeding ENDOCRINE: Negative for: Heat or cold intolerance, Excessive sweating, Frequent urination, Frequent thirst Objective PHYSICAL EXAMINATION: BP (!) 100/46 Pulse 73 Ht 172.7 cm (5' 8) Wt 90.3 kg (199 lb) SpO2 99% BMI 30.26 kg/m General: Well appearing, in no acute distress. In wheel chair Skin: No clubbing, no cyanosis. Eyes: Extra ocular movements intact. Glasses Oropharynx: Teeth in good repair. Neck: No jugular venous distention, no carotid bruits, carotids have a normal upstroke. Lungs: Clear to auscultation bilaterally, no wheezing or rhonchi. Heart: Regular rhythm, S1, S2 normal, no S3, no S4, no heaves, no rub and no murmur. Trace BLE edema with compression stockings . Grade 2/4 distal pulses bilaterally. Abdomen: Soft, nontender, bowel sounds normal, no bruits. Neuro: Oriented to person, place and time, alert, cooperative, gait coordinated. CARDIOVASCULAR MEDICINE TESTING: Last ECHO Result Conclusion ECHO Collected: 07/28/2024 1:24 PM (Final result) Impression: CONCLUSIONS: - Exam indication: Heart failure - The left ventricle is normal in size. Left ventricular systolic function is mildly decreased. EF = 50 5% (visual est.). Definity contrast used for endocardial border detection. Grade II left ventricular diastolic dysfunction. - The right ventricle is mildly dilated. Right ventricular systolic function is normal. - The right atrial cavity is moderately dilated. - There is mild (1+) mitral valve regurgitation. - Mild to moderate (1-2+) tricuspid valve regurgitation. - Estimated right ventricular systolic pressure is 56 mmHg consistent with moderate pulmonary hypertension. Estimated right atrial pressure is 15 mmHg based on IVC assessment. - Wall motion abnormalities as above. - Exam was compared with the prior OUTSIDE echocardiographic exam performed on 02/19/22. Compared to prior report, left ventricular function has declined with new wall motion abnormalities and estimated RVSP is higher. * * * Final * * * Last EKG Result Conclusion ECG COMPLETE Collected: 08/21/2024 2:46 PM (Final result) Impression: SINUS RHYTHM WITH PREMATURE ATRIAL COMPLEXES LEFT AXIS DEVIATION MODERATE VOLTAGE CRITERIA FOR LVH, MAY BE NORMAL VARIANT ( R in aVL , Derrick product ) ANTEROLATERAL INFARCT , AGE UNDETERMINED ABNORMAL ECG WHEN COMPARED WITH ECG OF 29-Nov-2023 15:42, PREMATURE VENTRICULAR COMPLEXES ARE NO LONGER PRESENT NONSPECIFIC T WAVE ABNORMALITY NO LONGER EVIDENT IN ANTERIOR LEADS T WAVE INVERSION NOW EVIDENT IN LATERAL LEADS Confirmed by MD VIKTORIYA, OLEGARIO () on 08/22/2024 11:39:20 AM I have personally reviewed the Echocardiogram. PLAN AND RECOMMENDATIONS: Chronic HFpEF - NYHA Functional Class II stage C Heart Failure - Echocardiogram 07/2024: EF 50%, grade II LVDD, - NT proBNP 07/26/24: 4860 (prior 01/11/2024: 954) - Volume status managed on Lasix 20 mg daily and Jardiance 25 mg daily - Patient appears volume euvolemic on exam. 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 apical WMA - No significant systemic infection or stressors at time of echo findings - Nuclear stress test 01/2023 with no inducible ischemia or scar - [facility] - Labs prior to [facility] Valvular heart disease - Echo 07/2024: - Mild (1+) MR - Mild (1-2+) TR - Emphasis on afterload reduction - Periodic echocardiogram monitoring Pulmonary hypertension - RVSP 56 mmHg consistent with moderate pHTN - In setting of untreated NELLY Essential hypertension - Optimal control on enalapril - Encouraged dietary sodium restriction/DASH diet - Reviewed risks of HTN and principles of treatment - Goal of BP <130/80 - Will have facility fax BP long - Consider decreasing enalapril pending BP log Mixed hyperlipidemia - Currently on atorvastatin 80 mg - Last lipid panel 07/2023 with LDL 103 - FLP Peripheral vascular disease - Noted venous insufficiency - Follows with vascular surgery, Dr. Moore Obstructive sleep apnea - PSG 05/29 with moderate NELLY likely underestimated due to low sleep efficiency and absence of REM - Not compliant on CPAP due to claustrophobia - Follows with sleep medicine Diabetes mellitus type 2 - Most recent A1c 7.4 CONCLUSION: Patient presents today for follow-up and appears to be doing well from a cardiovascular standpoint. She has no symptoms to suggest cardiac decompensation at this time however is not very active currently due to her lower extremity wounds. Echocardiogram during hospitalization in July showed mildly reduced ejection fraction as well as aneurysmal apex with apical wall motion abnormality. Nuclear stress test in 2022 with no ischemia or scar. Reviewed with Dr. Spangler today who agrees with [facility] given concern for coronary disease given her multiple risk factors, difficult to assess symptoms, and echo results. She would like to have this done in [place]. She will need lab work completed prior. Will additionally update cholesterol profile. Her blood pressure is on the low end of normal in the office today however she is asymptomatic. I have asked her to have her facility fax me her blood pressure log and if persistently low would consider decreasing her enalapril dose at that time. I have made no additions or changes to her medications. She should continue to actively engage in cardiovascular risk factor modification and follow up in 3-4 months, or sooner should need arise. CONTACT INFORMATION: Shanel Newell APRN.[facility] Cardiology Nurse Practitioner Section of Regional Cardiology [facility] Dept of Cardiovascular Medicine [facility] [place] [address] [place] [address] Office Office This note was partially generated using eMazeMe voice recognition system and may contain errors related to that system including grammar, punctuation, spelling, and words that may be inappropriate documented in this encounter [facility] 11-17-2024 Note HNO ID: [id number] Author: SHANEL NEWELL APRN.DEBORAH Service: ? Author Type: Nurse Practitioner Type: Progress Notes Filed: 11/17/2024 16:28 Note Text: [facility] [place] [facility] Department of Cardiovascular Medicine SECTION OF CLINICAL CARDIOLOGY OUTPATIENT VISIT DATE November 17, 2024 OUTPATIENT VISIT TYPE ESTABLISHED CHIEF COMPLAINT: Follow up HISTORY OF PRESENT ILLNESS: Ms. Brambila is a 64 year old female with history of chronic HFpEF, RWMA, HTN, HLD, peripheral vascular disease, NELLY, and diabetes mellitus type 2 who presents today for a cardiovascular medicine follow-up visit. She was last seen in the office on 03/06/2024 okay at which time she was noted to be above her dry weight with some mild signs of volume overload. She was asked to take as needed Lasix for 2 to 3 days until weight returns to baseline. Plan was for follow-up in 6 months with continue follow-up with heart failure clinic in between. She was subsequently admitted to [facility] in July and August for complications secondary to nonhealing wounds on her bilateral lower legs. During July admission she was seen by cardiology due to concern for acute on chronic HFpEF for which she was diuresed with IV Lasix. Echo during admission showed new RWMA and reduction in EF for which cardiology was consulted and recommended OP work up. She was again seen in [place] ED in September for wound bleeding after wound vac was removed. Her lab work an imaging were therapeutic and she was discharged home without further intervention. Since her last office visit and subsequent hospitalizations she has been doing relatively well for the last few months. She currently is weightbearing but only for transfers. She is starting to work with physical therapy 3 times a week in which they help her walk. She did this today without any exertional complaints. Her lower extremity edema has been stable. She sleeps at a slight incline as she has some shortness of breath when completely flat. Breathing feels better if she lays on her side. She continues with hyperbaric therapy and wound clinic for her lower extremity wounds. Her blood pressure is being checked at the facility as well as at hyperbaric therapy but she is unsure what it has been running. She denies any chest pain, palpitations, lightheadedness, dizziness, presyncope, or syncope. 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 Vitamin D deficiency 01/05/2017 PAST SURGICAL HISTORY Procedure Laterality Date AMPUTATION TOE,MT-P JT Right 07/2022 Hallux AMPUTATION TOE,MT-P JT Right 10/2023 removal of remaining right toes DILATION AND CURETTAGE DXAND/THER NONOBSTETRIC x3 EXTENSIVE HAND SURGERY Dupuytren contracture TONSILLECTOMY HX TOTAL ABDOM HYSTERECTOMY 08/2023 with BSO Social History Tobacco Use Smoking status: Never Passive exposure: Never Smokeless tobacco: Never Vaping Use Vaping status: Never Used Substance Use Topics Alcohol use: Not Currently Comment: Occ - 3 glasses of wine a year Drug use: No FAMILY HISTORY Problem Relation Age of Onset Hypertension Mother other (polycystic kidney disease) Mother Heart Father CHF Hypertension Father Diabetes Brother other (testicular cancer) Brother Coronary Artery Disease Brother MD and at age 45 other (CHF) Paternal Grandmother Cancer Paternal Aunt breast CA ALLERGIES: ALLERGIES Allergen Reactions Amoxicillin Unknown Patient does not remember reaction Silicone Rash, Itching Dressing with silicone border caused inflammation where the bandage was placed Codeine Intolerance Patient states Makes her Hyper Morphine Intolerance Difficulty waking up / groggy MEDICATIONS: GLUCAGON EMERGENCY KIT, HUMAN, INJECTION by INJECTION(UNSPECIFIED PARENTERAL ROUTES) route. sodium phosphate,mono-dibasic (ENEMA RECTAL) by RECTAL route as needed (constipation). may be given daily, if needed ferrous sulfate 325 mg (65 mg iron) tablet Take 325 mg by mouth once daily. bisacodyl (DULCOLAX) 10 mg supp 10 mg by RECTAL route once daily as needed for constipation. magnesium hydroxide (MOM) 400 mg/5 mL suspension Take 30 mL by mouth once daily as needed for constipation. senna-docusate (SENEXON-S) 8.6-50 mg per tablet Take 1 tablet by mouth as needed for constipation. naloxone (NARCAN) 1 mg/mL for intranasal administration 1 mg by INTRANASAL route as (more content not included)... [facility] 11-17-2024 Instructions Shelley Kenny RN - 11/17/2024 10:13 AM EDT WOUND CARE INSTRUCTIONS- Sahde Brambila Wound location: Bilateral Lower Legs [facility] HOME: FAX: [phone] All changes to wound vac settings and wound care must be cleared through Dr. Pickard prior to any changes being made. The pressure must remain at 175 due to the amount of tracking that must be done for the wounds Clear vac drape to all skin where foam will be placed. It is imperative to have all skin covered with clear drape where the black foam will be placed as there are new wounds where the black foam was placed directly on the patient's skin PLEASE ATTEMPT TO FEED THE PATIENT A DIABETIC DIET Diabetic Premiere Protein Shakes 2 x daily between meals May ambulate with Assistance Physical Therapy to assess what level of aid the patient needs to ambulate with assistance Patient may bear weight 1. Wash your hands with soap and water before and after wound care. 2. Gather all supplies needed. 3. Clean bilateral lower legs and feet with Dial Soap and Water. After removing the old dressings, the bilateral lower legs and feet MUST be cleaned with Dial Soap and Water prior to using Vashe' and applying any new dressings. Do not get the wounds wet in the shower. 4. Take a clean 4x4 gauze and moisten with a few drops of Vashe (blue bottle) and allow to soak for 5-10 minutes, then remove and pat dry. Left medial Ankle, Left Anterior and Lateral Lower leg, Right medial lower leg, Right anterior lower leg and Right lateral lower leg wounds: - Apply to the wound base: Adaptic - Cover with: drawtex, clear VAC drape - Change your dressing: M-W-F and as needed to keep clean and dry - Secure with olegario wrap from behind the toes to 1 below the knee - OLEGARIO WRAPS ARE NOT FOR COMPRESSION - THEY ARE ONLY TO HELP KEEP DRESSINGS IN PLACE Left dorsal foot/ankle, Right anterior-medial ankle wounds - Apply to the wound base: Carlos Manuel barrier cream, alginate, clear VAC drape - Change your dressing: M-W-F and as needed to keep clean and dry - Secure with olegario wrap from behind the toes to 1 below the knee - OLEGARIO WRAPS ARE NOT FOR COMPRESSION - THEY ARE ONLY TO HELP KEEP DRESSINGS IN PLACE Bilateral Achilles Alternate Dressing - Apply to the wound base: dakins moistened gauze packed in to the wound bed - Cover with: drawtex, 4x4's, abd pads - Secure dressing with: conform or kerlix wrap. tape - Change your dressing: Daily and as needed to keep clean and dry - Secure with olegario wrap from behind the toes to 1 below the knee - OLEGARIO WRAPS ARE NOT FOR COMPRESSION - THEY ARE ONLY TO HELP KEEP DRESSINGS IN PLACE Please apply a wound vac dressing on both achilles wounds & dorsal/lateral left foot wounds: KCL Recommended Settings: 175 mmHg, continuous Intensity High Continuous suction Wound Vac: Skin prep to naya-wound Duoderm to naya-wound of all wounds Eaken seal around the wound edge of each wound Apply white foam to right achilles tunnel (at 0600) Apply adaptic to the entire wound base all wounds Clear vac drape to all skin where foam will be placed and for bridged areas: It is imperative to have all skin covered with clear drape where the black foam will be placed. Black foam to wound bed - be sure to not over pack wounds with foam Track pad to be placed avoiding all bony prominence Pad and protect skin from tubing at all times using ABD pads between patient's skin and VAC tubing Change dressing 3 x weekly and as needed to keep clean and dry Apply a loose olegario wrap to secure dressings - Avoid sitting with legs in a dependent position or standing for long periods of time. - Attempt to lay flat and elevate your legs above the level of your heart 2-3 times daily, for 30 minutes at a time. - Be sure to continue walking and/or calf pumps and exercises to mimic writing the alphabet with your foot, as instructed Foot care Many people with diabetes lose the feeling in their feet (neuropathy). Therefore, they might not know they have an injury that can lead to serious problems, such as foot removal (amputation). By taking care of your feet, most serious problems can be prevented. If you have problems checking your own feet, have a family member or friend help you. Easy steps to protect your feet: Check your feet every day for: dry or cracked skin, cuts, open sores, blisters, redness, swelling, corns, calluses, or toenail problems. Use a mirror if necessary. Report any problems to your doctor. Keep your feet clean and dry, especially between the toes. If your feet are dry or cracked use a moisturizing lotion at least daily but never between the toes. See your judicial clerk every three months for foot and nail care. Don't go barefoot. Wear shoes or slippers at all times. Wear comfortable shoes that fit well. Check inside your shoes for foreign objects or rough spots before putting on shoes. Always wear socks. Avoid using anything hot, such as heating pads, hot water bottles, hot tubs, or bath water. Check the temperature of bath water with your elbow not your foot. Take your shoes and socks off at every office visit to remind your doctor to check your feet. Also, never tape a dressing directly to the skin on your legs or feet. Instead, use a self-adherent bandage to avoid injuring the skin on your lower extremities If calluses form they can cause wound ulcers to appear under the callus, must be seen by [employer] every three months to prevent. Maintain controlled blood sugar, if blood sugar is consistently above 200 this can delay wound healing and aggravate neuropathy. To give your wound the best chance to heal: - Eat three balanced meals daily focusing on the protein - Control your blood sugar. Keep blood sugar less than 200 - Complete your wound care instructions as ordered - Vitamin C 500 mg twice daily - Multiple Vitamin Daily - Drink a protein shake daily - Premiere Clear or Glucerna for Diabetic patients, Nepro for renal patients and premiere for non-renal and non-diabetic patients Report any of the following signs and symptoms of infection to the Wound Center at [phone] or go to the Emergency Department: Fever or chills Increased drainage Green or yellow drainage Foul odor Increased pain Hardness around the wound Redness, warmth or swelling of the surrounding tissue Color change to the wound Evenings / Weekends / Holidays If you call the wound center at the phone number provided above, please leave a detailed message that includes your full name, birthday, and phone number. We are seeing patients during the day, so we will return your call within a 24-48 hr period in the order your call was received. There is not an on-call provider assigned to the wound center. If you have an emergency that needs to be addressed, please go to an Urgent Care or Emergency Room. Thank you for your cooperation and understanding. If you are feeling ill, please call to reschedule your appointment. If you believe your illness to be wound related, call and leave a message using the directions above describing your symptoms. If you cannot wait 24-48 hrs for a callback, please get evaluated in the nearest emergency department. PLAN/ORDERS: Follow-up in [facility] with [facility] Pickard once a week: 11/24/24 @ 10:30am Continue aggressive nutritional support to assist wound healing, focusing on increasing protein intake, keeping blood sugars stable/controlled Blood sugars must be kept below 150 for wound healing Patient is a High Fall Risk due - UP WITH ASSIST ONLY HAVE PATIENT ATTEMPT CHAIR YOGA EXERCISES - LIMITED ANKLE MOVEMENT WEIGHT BEARING TOLERATED Please give patient premiere diabetic protein shakes 2 x daily between meals Hu Pickard DPM/tr/ml/bb WOUND # 41 - LOCATION: Left Medial Ankle (NEW 07/26/24 L: 0.7 cm x W: 1.2 cm x D: 0.1 cm WOUND # 46 LOCATION: Left Lateral Lower Leg (NEW 10/12/24)) L:3.2 cm x W: 0.9 cm x D: 0.2 cm WOUND # 45 - LOCATION: Right Anterior Lateral Lower Leg Cluster - (08/17/24 ) - closed 11/10/24 WOUND VAC WOUNDS: Wounds 39, 42 WOUND # 39 LOCATION: Right Achilles L: 10.0 cm x W: 4.0 cm x D: 1.5 cm - Tendon exposed Tunnel: in cm 0600: 3.5cm to bone WOUND # 42 - LOCATION: Left Achilles (NEW 07/26/24) L: 10.4 cm x W: 3.6 cm x D: 1.4 cm - Tendon exposed WOUND # 43 - LOCATION: Left Dorsal / Lateral Foot -(NEW 07/26/24 L: 0.6 cm x W: 1.0 cm x D: 0.5 cm WOUND # 49 LOCATION: Left anterior lower leg - (new 11/10/24) - from foam being placed directly on skin Closed, but fragile WOUND # 48 LOCATION: Right medial lower leg cluster - new 11/10/24 from foam being placed directly on skin L:0.3 cm x W: 0.3 cm x D: 0.1 cm WOUND #50 LOCATION: Left dorsal foot/anterior ankle (11/17/24) L: 0.4 cm x W: 3.8 cm x D: 0.1 cm WOUND # 51 LOCATION: Right anterior-medial ankle (11/17/24) L: 3.5 cm x W: 7.0 cm x D: 0.1 cm WOUND #52 LOCATION: Right anterior lower leg (11/17/24) L: 2.0 cm x W: 0.4 cm x D: 0.1 cm WOUND #53 LOCATION: Right lateral lower leg (11/17/24) L: 0.3 cm x W: 0.3 cm x D: 0.1 cm AOC: Right medial Foot maceration: apply Carlos Manuel or barrier cream, followed by alginate and secure with the Clear VAC drape documented in this encounter [facility] 11-17-2024 Note [facility] 11-10-2024 Note [facility] 11-10-2024 History of Presen t illness Narrative Date of Visit: 11/10/2024 Problem list reviewed. CHIEF COMPLAINT: check B/L lower leg wounds and NEW BL steiner wounds DM II A1c 7.4 (10/25/24) DLS 02/08/24 ADM 08/17/24 HISTORY OF PRESENT ILLNESS: Patient presents for BL leg wound check. She was admitted 08/17/24 and was DC to SNF where she is still at. She relates her insurance wouldn't cover it so she is self paying and planning on going to the nonskilled assistive living side soon. She is at [facility]. They have resumed the wound vac. She relates she has NEW wounds to BL shins where the wound vac was tracked to lower legs. She relates the wound doctor there is still seeing her and changing the plan as recommended here. She was DC on cipro and flagyl which she finished taking. Patient is taking protein drinks on own. She relates the facility isn't good about helping her dietary needs. They have started to give her the protein supplements though. She states pain is a 2/10. She relates she can't feel feet well and gets numbness. Referred by aircraft hydraulic equipment mechanic, Dr. Dasilva. Patient is DM and sees aircraft hydraulic equipment mechanic Denies N/V/F/C/D/SOB/CP/LP. PCN allergy Hx RT 3rd perc flexor tenotomy (07/26/23) HX R great toe amputation 06/18/23, excision tibial and fibular sesamoid, bone biopsy first met head. Right 2nd toe amputation and hallux I&D 10/28/22. Hx s/p RT toe amp 3,4,5 (DOS 10/14/23) DME DM inserts 08/24/23 rx circade wraps 08/14/22 CURRENT MEDICATIONS: oxyCODONE HCl Oral Tablet 5 MG (07/05/2024) Take 1 tablet every 12 hours as needed for 7 day(s) Percocet Oral Tablet 5-325 MG (07/20/2024) Take 1 tablet every 12 hours as needed for 7 day(s) oxyCODONE-Acetaminophen Oral Tablet 5-325 MG (10/28/2022) Ketorolac Tromethamine Ophthalmic Solution 0.5 % (04/26/2023) Accu-Chek Jose Plus In Vitro Strip (09/23/2022) Atorvastatin Calcium Oral Tablet 80 MG (06/13/2023) miSOPROStol Oral Tablet 200 MCG (06/15/2023) TAKE 2 TABLETS BY MOUTH THE DAY PRIOR TO PROCEDURE AT BEDTIME WITH FOOD Fluticasone Propionate Nasal Suspension 50 MCG/ACT (12/15/2022) USE 2 SPRAYS IN EACH NOSTRIL DAILY X1 WEEK,THEN 1 SPRAY IN EACH NOSTRIL DAILY THEREAFTER NEEDED Nitrofurantoin Monohyd Macro Oral Capsule 100 MG (02/08/2023) Fluconazole Oral Tablet 200 MG (03/20/2024) TAKE 1 TABLET EVERY DAY FOR 21 DAYS Bactrim DS Oral Tablet 800-160 MG (06/24/2023) Take 1 tablet twice a day for 10 day(s) Ofloxacin Ophthalmic Solution 0.3 % (03/30/2023) diazePAM Oral Tablet 10 MG (02/19/2022) TAKE 1 TABLET 60 MIN BEFORE TEST Atorvastatin Calcium Oral Tablet 40 MG (11/18/2022) FLUoxetine HCl Oral Capsule 40 MG (01/26/2022) Enalapril Maleate Oral Tablet 10 MG (01/26/2022) TAKE 1 TABLET BY MOUTH EVERY DAY Erythromycin Ophthalmic Ointment 5 MG/GM (02/09/2022) APPLY 1 A SMALL AMOUNT LEFT EYE 4 TIMES A DAY Atorvastatin Calcium Oral Tablet 20 MG (01/26/2022) TAKE 1 TABLET BY MOUTH EVERY DAY Spironolactone Oral Tablet 25 MG (06/15/2023) TAKE 0.5 TABLETS BY MOUTH ONCE DAILY. Jardiance Oral Tablet 25 MG (06/14/2023) TAKE 1 TABLET BY MOUTH EVERY DAY WITH BREAKFAST Furosemide Oral Tablet 40 MG (11/18/2022) HumuLIN R U-500 KwikPen Subcutaneous Solution Pen-injector 500 UNIT/ML (06/14/2023) INJECT 40 UNITS SUBCUTANEOUSLY AT BREAKFAST, 100 UNITS AT LUNCH, 80 UNITS AT SUPPER. metFORMIN HCl Oral Tablet 1000 MG (11/23/2022) TAKE 1 TABLET BY MOUTH TWICE DAILY WITH MEALS. E11.3599 ALLERGIES: Amoxicillin Unknown Band-Aid [place] Surg Dressing Other Bandaging Tape Other PAST MEDICAL HISTORY: Podiatry History remarkable for Foot Numbness, Fungal Nails, Leg or Foot Ulcers. The patient has a past medical history of Arthritis, Depression, DM-Medication Dependent, Poor Circulation. Neuropathy High Cholesterol SURGICAL HISTORY: Hand Tonsils HOSPITALIZATIONS: None Noted SOCIAL HISTORY: Smoking Status: Never smoker; Last Reviewed: 12/08/2023 Alcohol use: social drinker No drug use Social History Reviewed (01/16/2021 11:20:18 AM EST) FAMILY HISTORY: There is a family history of Denial of any knowledge of significant family history. Denial of any knowledge of significant family history Family History Reviewed (01/16/2021 11:20:19 AM EST) REVIEW OF SYSTEMS: Psychologic: Admits to No psych symptoms. Review of systems otherwise negative PHYSICAL EXAMINATION: Vital Signs: Weight 235 lbs; Height 5 ft 8 in; BMI 35.7 11/08/2024 11:09 AM (EST) Temperature 98.6 F; Pulse Rate 100 bpm; Blood Pressure 120 / 80 mm/Hg Vascular Exam: DP pulses of the RIGHT and LEFT foot are +1/4 PT pulses of the RIGHT and LEFT foot are +1/4 CFT is within normal limits, less than 3s to all digits, both feet. Skin temperature from proximal to distal is warm to warm, both feet. BL LE edema Dermatologic Exam: LEFT hallux wound healed and LEFT anterior lower leg wound healed LEFT medial ankle wound predebridement measures 1.0x1.1x0.1cm and post debridement measures 1.1x1.3x0.2cm with 70:30 granular fibrotic base, minimal surrounding slough, no surrounding edema and erythema, no purulence expressed, no probe to bone, no malodor, moderate serosanginous drainage. Into level of SUBCUTANEOUS tissue. LEFT lateral lower leg wound predebridement measures 3x0.6x0.1cm and post debridement measures 3.1x0.8x0.1cm with 70:30 granular fibrotic base, surrounding slough, no erythema, no purulence, no probe to bone, no malodor, moderate serosanguinous drainage. Into level of SUBCUTANEOUS TISSUE, partial thickness LEFT posterior Achilles lower leg wound predebridement measures 10.3x3.6x0.9cm and post debridement measures 10.5x3.8x1.5cm with 65:35 granular fibrotic base, surrounding slough, no surrounding edema and erythema, no purulence expressed, no probe to bone-exposed achilles tendon with complete RUPTURE, mild malodor, moderate serosanginous drainage. Into level of TENDON. LEFT dorsal lateral foot wound predebridement measures 0.7x0.7x0.1cm and post debridement measures 0.9x0.9x0.2cm with 70:30 granular fibrotic base, no surrounding callus, no surrounding edema and erythema, no purulence expressed, no probe to bone-5th MPJ covered, no malodor, moderate serosanginous drainage. Into level of SUBCUTANEOUS tissue LEFT anterior lower leg wound predebridement measures 5.3x0.8x0.1cm and post debridement measures 5.5x1.0x0.1cm with 80:20 granular fibrotic base, surrounding slough, no surrounding edema and erythema, no purulence expressed, no probe to bone, no malodor, moderate serosanginous drainage. Into level of SUBCUTANEOUS layer. RIGHT posterior Achilles lower leg wound predebridement measures 9.2x4.3x1.3cm and post debridement measures 9.5x4.5x1.5cm with tunnelling at 6 o'clock for 3.0cm, 60:40 granular fibrotic base, surrounding slough, no surrounding edema and erythema, no purulence expressed, YES probe to bone-Exposed achilles tendon posteriorly with fraying and complete RUPTURE and tracking to calcaneus, no malodor, moderate serosanginous drainage. Into level of BONE. RIGHT anterior lateral lower leg cluster wound healed. RIGHT medial lower leg cluster wound predebridement measures 11.8x5.2x0.1cm and post debridement measures 12x5.3x0.1cm with 80:20 granular fibrotic base, surrounding slough, no surrounding edema and erythema, no purulence expressed, no probe to bone, no malodor, moderate serosanginous drainage. Into level of SUBCUTANEOUS layer. LEFT foot 2nd toe tuft hyperkeratotic tissue Nails 2-5 left are thickened, elongated and discolored with subungual debris. The nails are greater than .3mm in thickness. The discoloration is yellowish in color. Innerspaces 1-4 LT are clean dry and intact. Skin texture and turgor are decreased. absent or decreased hair growth bilateral. chronic lower leg red hyperpigmentation Neurologic Exam: Comments/Other Findings: Vibratory sensations decreased LT, Protective sensations absent LT tested with 5.07 monofilament, and light, sharp, and temperature sensations intact LT. Normal Babinski test noted bl foot after testing Orthopedic Exam: Additional Orthopedic Findings: RIGHT foot toe amputations 1,2,3,4,5 LEFT 2nd hammertoe contracture semi- rigid BL foot with absent plantar flexion 0/5 muscle strength with palpable rupture to achilles tendon DIAGNOSIS: Type II diabetes mellitus with neurological manifestations PVD (peripheral vascular disease) Amputated toe of right foot Personal history of diabetic foot ulcer Callus Onychomycosis Venous ulcer of left lower extremity without varicose veins Ulcer of left lower extremity, limited to breakdown of skin Venous ulcer of right lower extremity without varicose veins Ulcer of right lower extremity, limited to breakdown of skin 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 Diabetic foot ulcer Diabetic leg ulcer Achilles rupture, left 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 Achilles rupture, right Ulcer of left foot with fat layer exposed Skin ulcer of left great toe, limited to breakdown of skin Malnutrition 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 No fractures or dislocations noted. No soft tissue emphysema noted. No osteopenia or sclerosis noted. tibial and fibular sesamoid excised, there is small calcified piece of fibular sesamoid bone noted to plantar lateral 1st met. RT foot amp at MTPJ 1,2,3,4,5. no lytic lesions. no soft tissue gas noted. 08/17/24 Xray left foot: No radiographic presence of OM 08/17/24 Xray tib/fib left leg: No radiographic presence of OM 08/17/24 Xray tib/fib right leg: No radiographic presence of OM 08/17/24 CRP: 13.6 and 08/18/24 ESR: 97 04/05/24 PVR b/l leg: Left MANJEET 0.9 and Right 0.95 08/18/24 Left leg wound culture: Few pseudomonas aeruginosa FINAL 08/18/24 MRI BL LE: 1. No drainable soft tissue abscess or evidence for osteomyelitis 2. Diffuse edema/cellulitis and fatty muscle atrophy with nonspecific myositis. 10/01/24 albumin: 3.3 NEW RIGHT medial lower leg cluster wound. NEW LEFT anterior lower leg cluster wound. LEFT lateral lower leg ulcer improved. LEFT posterior achilles lower leg ulcer improved. LEFT dorsal lateral foot cluster ulcer improved. LEFT medial ankle ulcer improved. RIGHT posterior achilles lower leg ulcer deeper. RIGHT anterior lateral lower leg cluster ulcer healed. LEFT hallux ulcer healed. LEFT anterior lower leg ulcer healed. LEFT medial ankle ulcer, LEFT lateral lower leg ulcer, LEFT dorsal lateral foot ulcer, RIGHT medial lower leg cluster ulcer and LEFT anterior lower leg ulcer treated with sharp excisional debridement carried out of the wound with non selective sharp excisional debridement past the dermis into SUBCUTANEOUS level with use of curette and 15 scalpel blade. Devitalized tissue removed. We then flushed out the wound with wound wash sterile saline. Area numbed with lidocaine gel if sensate prior. LEFT posterior achilles lower leg ulcer treated with sharp excisional debridement carried out of the wound with non selective sharp excisional debridement past the dermis into FASCIA and FAT level with use of curette and 15 scalpel blade. Devitalized tissue removed and we then flushed out the wound with wound wash sterile saline. Area numbed with lidocaine gel if sensate prior. RIGHT posterior Achilles lower leg ulcer treated with sharp excisional debridement carried out of the wound with non selective sharp excisional debridement past the dermis into BONE level with use of curette, bone rongeur and 15 scalpel blade. Devitalized tissue removed and we then flushed out the wound with wound wash sterile saline. Area numbed with lidocaine gel if sensate prior. Discussed importance in offloading, proper nutrition including blood sugar control and getting enough protein and vitamins, infection prevention, and proper wound care in wound healing. Also discussed detrimental impact of smoking on healing. Reviewed proper wound care with patient. To not soak wound but to clean appropriately. To watch for signs of infection both local and systemic. These were reviewed with the patient. If seen to contact office or go to ED. To continue wound care consisting of washing the wound with soap and water or vashe solution soaked gauze for 3-5 minutes. Then to apply dressing consisting of BL achilles wounds adaptic with wound vac. To the RIGHT medial lower leg cluster wound and LEFT anterior lower leg cluster wound apply adaptic and gauze wrap. To the LEFT medial ankle, LEFT lateral lower leg, LET dorsal lateral foot wounds apply primsa, adaptic, SAP or incorporate in gauze wrap. To change 3 times a week. Discussed NEW wounds to legs caused from improperly applied wound vacs. Discussed the foam should never have direct contact with skin as this will cause skin breakdown as seen today. Upon removal of wound vac no drape was placed between skin and black foam with right being worse than left. Cont BL wound vacs. Discussed need to fill in the deficit from BL achilles rupture as well as to get coverage over achilles. Discussed wound vac is best option. Discussed would need to fill in wounds a bit more with wound vac before considering grafting. Discussed as bridging away from wound site keeping suction at 175mmHg to best effectively heal area. Discussed with both achilles ruptured she will struggle with push off in gait. Discussed achilles likely ruptured due to chronic ulceration with infections and drying out of tendon. Discussed if we can get her healed she will need AFO to aid in walking. Discussed she is at high risk for BKA BL. Discussed she can weight bear as tolerated. Discussed need assist for activities as she is a high fall risk. Discussed limiting motion at ankle joint to stop tugging on wounds to aid in healing. Discussed need to balance this with maintaining muscle. Discussed need for better nutrition Patient educated on the importance of proper nutrition to help optimize healing. Discussed eating three balanced meals daily and meal preparation. Discussed importance of high protein intake. Discussed supplementation drinks such as ensure, glucerna, nepro, tamiko. Discussed need for blood sugar control, proper vitamin intake whether dietary or through supplementation. Discussed Vitamin C, Multi Vitamin, zinc, and magnesium supplementation. Discussed may need to watch sodium intake as well especially if patient experiences swelling. Offered nutrition referral. Patient taking protein supplement drink BID between meals Patient relates she would like to continue care at [facility] with me managing her wounds with nurses at facility helping with dressing changes only. Future plan to take to OR for possible grafting if can fill in some depth with wound vac vs office grafting Follow up in 1 week for check with continued monitoring at SNF and see if started working with PT or got moved to nonskilled assistive living Bilateral Achilles Alternate Dressing - Apply to the wound base: dakins moistened gauze packed in to the wound bed - Cover with: drawtex, 4x4's, abd pads - Secure dressing with: conform or kerlix wrap. tape - Change your dressing: Daily and as needed to keep clean and dry - Secure with olegario wrap from behind the toes to 1 below the knee - OLEGARIO WRAPS ARE NOT FOR COMPRESSION - THEY ARE ONLY TO HELP KEEP DRESSINGS IN PLACE Please apply a wound vac on both achilles KCL Recommended Settings: 175 mmHg, continuous Intensity High Continuous suction Wound Vac: Skin prep to naya-wound Duoderm to naya-wound of all wounds Eaken seal around the wound edge of each wound Apply white foam to right achilles tunnel (at 0600) Apply adaptic to the entire wound base all 2 wounds Clear vac drape to all skin where foam will be placed. It is imperative to have all skin covered with clear drape where the black foam will be placed. Black foam to wound bed - be sure to not over pack wound with foam Track pad to be placed avoiding all bony prominence Pad and protect skin from tubing at all times Change dressing 3 x weekly and as needed to keep clean and dry Apply a loose olegario wrap to secure dressings - Avoid sitting with legs in a dependent position or standing for long periods of time. - Attempt to lay flat and elevate your legs above the level of your heart 2-3 times daily, for 30 minutes at a time. - Be sure to continue walking and/or calf pumps and exercises to mimic writing the alphabet with your foot, as instructed Type II diabetes mellitus with neurological manifestations 250.60 E11.49 Diagnosis Notes Drag & Drop to change diagnosis order PVD (peripheral vascular disease) 443.9 I73.9 Diagnosis Notes Drag & Drop to change diagnosis order Amputated toe of right foot 895.0 S98.131A Diagnosis Notes Drag & Drop to change diagnosis order Personal history of diabetic foot ulcer V12.29 Z86.31 Diagnosis Notes Drag & Drop to change diagnosis order Callus 700 L84 Diagnosis Notes Drag & Drop to change diagnosis order Onychomycosis 110.1 B35.1 Diagnosis Notes Drag & Drop to change diagnosis order Venous ulcer of left lower extremity without varicose veins 459.81 I87.2 Diagnosis Notes Drag & Drop to change diagnosis order Ulcer of left lower extremity, limited to breakdown of skin 707.10 L97.921 Diagnosis Notes Drag & Drop to change diagnosis order Venous ulcer of right lower extremity without varicose veins 459.81 I87.2 Diagnosis Notes Drag & Drop to change diagnosis order Ulcer of right lower extremity, limited to breakdown of skin 707.10 L97.911 Diagnosis Notes Drag & Drop to change diagnosis order 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 707.13 L97.323 Diagnosis Notes Drag & Drop to change diagnosis order Diabetic foot ulcer 250.80 E11.621 Diagnosis Notes Drag & Drop to change diagnosis order Diabetic leg ulcer 250.80 E11.622 Diagnosis Notes Drag & Drop to change diagnosis order Achilles rupture, left 845.09 S86.012A Diagnosis Notes Drag & Drop to change diagnosis order 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 707.13 L97.312 Diagnosis Notes Drag & Drop to change diagnosis order Achilles rupture, right 845.09 S86.011A Diagnosis Notes Drag & Drop to change diagnosis order Ulcer of left foot with fat layer exposed 707.15 L97.522 Diagnosis Notes Drag & Drop to change diagnosis order Skin ulcer of left great toe, limited to breakdown of skin 707.15 L97.521 Diagnosis Notes Drag & Drop to change diagnosis order Malnutrition 263.9 E46 Diagnosis Notes Drag & Drop to change diagnosis order 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 707.13 L97.314 Nursing Documentation Pertinent Medical History: DM2, HTN, venous insufficiency, & heart failure Wound Etiology according to patient: wounds started February 2024 Pt had right great toe amputation June 18, 2023 Patient arrived via: Ambulatory with [facility]Nursing Facility: [facility] Consent captured for debridement per Hu Pickard DPM and good until April 2025 Anticoagulant Therapy: ASA 81mg ACTIVE CARE PER PROVIDER: Hu Pickard DPM Application Dates: Grafts are complete 01/07/2023 [facility] 01/15/2023 [facility] 01/21/2023 [facility] 01/27/2023 [facility] 02/04/2023 [facility] Wounds 1-38 previously closed 40 closed 44 closed 47 Closed WOUND ASSESSMENT: Refer to Provider's Wound Assessment Note VASCULAR ASSESSMENT BY PROVIDER: See provider wound assessment note CHF History: Yes as of February 2022, Dr. Sadler in Cardiology EDEMA: Right Foot: brawny Right Calf: brawny Left Foot: brawny Left Calf: brawny MEASUREMENTS: in CM Right Calf: 34 Right Ankle: 23.5 Left Calf: 32.5 Left Ankle: 24.5 Length: 43.0 not measured at visit WOUND PHOTOGRAPHY: yes x 7 date taken 11/10/24 DEBRIDEMENT PROCEDURE BY PROVIDER: Anesthetic Used: n/a Other procedure: N/A Specimen collected: N/A WOUND TREATMENT PER MD ORDER: Wounds cleansed by mechanical debridement to allow provider to visualize wound base 07/05/24: Patient reports wosening heart failure; states she has a lot more swelling in the legs and has had trouble breathing when trying to lay in bed to sleep; weight today = 247lbs (up almost 25lbs since 2023). Message sent to Ayan Wlalis CNP with heart failure clinic. Patient states she has been speaking to Ayan via telephone regarding weight gain. 07/26/24: Pt with increased pain, drainage, redness noted to bilateral lower legs. New wounds present on bilateral lower legs. Pt stated that she did not come to appointment last week with Dr. Reyes due to not feeling well, stated that her legs were giving her issues. Discussed with pt the importance of not waiting to be seen if her Dr. Reyes would like pt to go to the ER. LEFT LOWER LEG WOUNDS *Silicone Allergy WOUND # 41 - LOCATION: Left Medial Ankle (NEW 07/26/24 L: 1.3 cm x W: 2.0 cm x D: 0.1 WOUND # 46 LOCATION: Left Lateral Lower Leg (NEW 2/6/25)) L: 3.1 cm x W: 0.8 cm x D: 0.1 cm Wounds 41, 46, Cleansed with: Dial soap and water, Vashe Applied to naya-wound skin:skin prep Applied to wound bed: jose a, adaptic Covered and secured with: 4x4's, ABD pads, Kerlix, & Tape Secure with olegario wrap from behind the toes to 1 below the knee Lose to only secure the dressings - - - - - - - - - - - - - - - - - - - - - - - - - - - - - - - - - - - - - - - - - - - - - - - - - - - - - - - - - - - - - - - - - - - - - - - - WOUND VAC WOUNDS: Wounds 39, 42, WOUND # 39 LOCATION: Right Achilles L: 9.5 cm x W: 4.5 cm x D: 1.5 cm - Tendon exposed Track pad placed on the right anterior/medial lower leg Tunnel: in cm 0600: 3.0 to bone WOUND # 42 - LOCATION: Left Achilles (NEW 07/26/24) L: 10.5 cm x W: 3.8 cm x D: 1.5 cm - Tendon exposed Cleansed with: Dial soap and water/Vashe Applied to naya-wound skin: gentian rimma, skin prep, duoderm, saul seal Applied to wound bed: adaptic, black foam, white foam to right achilles tunnel Covered and secured with: drape, track pad, ABD pads, Kerlix, & Tape Secure with olegario wrap from behind the toes to 1 below the knee Lose to only secure dressings WOUND # 43 - LOCATION: Left Dorsal / Lateral Foot -(NEW 07/26/24 L: 0.9 cm x W: 0.9 cm x D: 0.2 cm track pad placed on the left anterior/medial lower leg WOUND # 49 LOCATION: Left anterior lower leg - (new 11/10/24) L: 5.5 cm x W: 1.0 cm x D: 0.1 cm Bullae deflated Cleansed with: Dial soap and water/Vashe Applied to naya-wound skin:skin prep Applied to wound bed: jose a, adaptic Covered and secured with: 4x4's, ABD pads, Kerlix, & Tape Secure with olegario wrap from behind the toes to 1 below the knee - - - - - - - - - - - - - - - - - - - - - - - - - - - - - - - - - - - - - - - - - - - - - - - - - - - - - - - - - - - - - - - - - - - - - - - - RIGHT LOWER LEG WOUNDS WOUND # 45 - LOCATION: Right Anterior Lateral Lower Leg Cluster - (08/17/24 ) - closed 11/10/24 WOUND # 48 LOCATION: Right medial lower leg cluster - new 11/10/24 L: 12 cm x W: 5.3 cm x D: 0.1 cm Cleansed with: Dial soap and water/Vashe Applied to naya-wound skin:skin prep Applied to wound bed: jose a, adaptic Covered and secured with: 4x4's, ABD pads, Kerlix, & Tape Secure with olegario wrap from behind the toes to 1 below the knee AOC: Right medial Foot: COMPRESSION: NO COMPRESSION. 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 Examiner N/A Incontinence needs N/A [employer] company: ordered 03/01/24 [place] wraps, Supplies ordered 06/07/2024 x 30 days with 2 refills DISCHARGED in stable condition to: back to [facility] with a friend PLAN/ORDERS: Follow-up in the Wound Center with Dr Pickard once a week: Continue aggressive nutritional support to assist wound healing, focusing on increasing protein intake, keeping blood sugars stable/controlled Blood sugars must be kept below 150 for wound healing Patient is a High Fall Risk due - UP WITH ASSIST ONLY HAVE PATIENT ATTEMPT CHAIR YOGA EXERCISES - LIMITED ANKLE MOVEMENT WEIGHT BEARING TOLERATED Please give patient premiere diabetic protein shakes 2 x daily between meals OTHER EDUCATION: Education performed regarding lymphedema/edema: n/a Elevation of extremity above the heart for 30 minutes three times daily and as needed Exercise such as writing the ABC's with your toes in the air, walking and/or calf pumps Wearing compression as ordered by provider Diet controlling of sodium as instructed by provider Use of medication to help control edema. UNIVERSAL PROTOCOL / SAFETY CHECKLIST Procedure to be Performed sharp debridement of Bilateral Lower Legs Sign In: 1005 A Moment of CARE was completed. Personnel directly involved with the procedure wore the appropriate PPE (Personal Protective Equipment). Patient/Surrogate Stated/Verified: PATIENT VERIFIED(optional for EMERGENT procedures): Patient name, Date of , Relevant allergies, and The intended procedure Time Out Communication: 1005 Intended patient and procedure match the source documents. Consent documented and matches the intended procedure. No relevant labs, photos, and/or imaging studies were applicable for review. Sign Out: 1017 SIGN OUT (optional for EMERGENT procedures): All instruments, equipment, possible retained foreign bodies accounted for. Current HBOT Status: Active or Complete - see screening below WOUND CENTER HYPERBARIC OXYGEN THERAPY SCREENING 1. Is the patient diabetic? (If No, skip to question 5) Yes 2. Does the patient have a lower extremity wound? Yes 3. Is there exposed/involved tendon or bone? yes 4. Has the wound been present for 30 days? Yes If Yes to ALL questions above, consult the Hyperbaric Center 5. Has the patient been diagnosed with osteomyelitis? No 6. Has the patient had a previous skin graft or flap at the wound? No 7. Has the patient had or been offered vascular intervention/evaluation? No 8. Does the patient have a wound at an amputation site? Yes 9. Has the patient had radiation therapy at the site of the problem? No If Yes to ANY of questions 5-9, consult the Hyperbaric Center Portia Holguin RN/melonie documented in this encounter [facility] 11-10-2024 Instructions Portia Holguin RN - 11/10/2024 9:21 AM EST WOUND CARE INSTRUCTIONS- Shade Brambila Wound location: Bilateral Lower Legs [facility] HOME: FAX: [phone] All changes to wound vac settings and wound care must be cleared through Dr. Pickard prior to any changes being made. The pressure must remain at 175 due to the amount of tracking that must be done for the wounds Clear vac drape to all skin where foam will be placed. It is imperative to have all skin covered with clear drape where the black foam will be placed. PLEASE ATTEMPT TO FEED THE PATIENT A DIABETIC DIET Diabetic Premiere Protein Shakes 2 x daily between meals May ambulate with Assistance Physical Therapy to assess what level of aid the patient needs to ambulate with assistance Patient may bear weight 1. Wash your hands with soap and water before and after wound care. 2. Gather all supplies needed. 3. Clean bilateral lower legs and feet with Dial Soap and Water. After removing the old dressings, the bilateral lower legs and feet MUST be cleaned with Dial Soap and Water prior to using Vashe' and applying any new dressings. Do not get the wounds wet in the shower. 4. Take a clean 4x4 gauze and moisten with a few drops of Vashe (blue bottle) and allow to soak for 5-10 minutes, then remove and pat dry. Left medial Ankle, Left Lateral Lower leg, Left Dorsal foot/lateral foot - Apply to the wound base: jose a - Cover with: adaptic - Secure dressing with: 4x4's, abd pads - Change your dressing: M-W-F and as needed to keep clean and dry - Secure with olegario wrap from behind the toes to 1 below the knee - OLEGARIO WRAPS ARE NOT FOR COMPRESSION - THEY ARE ONLY TO HELP KEEP DRESSINGS IN PLACE Right medial Lower leg cluster, Left anterior lower leg - Apply to the wound base: adaptic - Cover with: 4x4 gauze, abd pads - Secure dressing with: kerlix and tape - Change your dressing: M-W-F and as needed to keep clean and dry - Secure with olegario wrap from behind the toes to 1 below the knee - OLEGARIO WRAPS ARE NOT FOR COMPRESSION - THEY ARE ONLY TO HELP KEEP DRESSINGS IN PLACE Bilateral Achilles Alternate Dressing - Apply to the wound base: dakins moistened gauze packed in to the wound bed - Cover with: drawtex, 4x4's, abd pads - Secure dressing with: conform or kerlix wrap. tape - Change your dressing: Daily and as needed to keep clean and dry - Secure with olegario wrap from behind the toes to 1 below the knee - OLEGARIO WRAPS ARE NOT FOR COMPRESSION - THEY ARE ONLY TO HELP KEEP DRESSINGS IN PLACE Please apply a wound vac on both achilles KCL Recommended Settings: 175 mmHg, continuous Intensity High Continuous suction Wound Vac: Skin prep to naya-wound Duoderm to naya-wound of all wounds Eaken seal around the wound edge of each wound Apply white foam to right achilles tunnel (at 0600) Apply adaptic to the entire wound base all 2 wounds Clear vac drape to all skin where foam will be placed. It is imperative to have all skin covered with clear drape where the black foam will be placed. Black foam to wound bed - be sure to not over pack wound with foam Track pad to be placed avoiding all bony prominence Pad and protect skin from tubing at all times Change dressing 3 x weekly and as needed to keep clean and dry Apply a loose olegario wrap to secure dressings - Avoid sitting with legs in a dependent position or standing for long periods of time. - Attempt to lay flat and elevate your legs above the level of your heart 2-3 times daily, for 30 minutes at a time. - Be sure to continue walking and/or calf pumps and exercises to mimic writing the alphabet with your foot, as instructed Foot care Many people with diabetes lose the feeling in their feet (neuropathy). Therefore, they might not know they have an injury that can lead to serious problems, such as foot removal (amputation). By taking care of your feet, most serious problems can be prevented. If you have problems checking your own feet, have a family member or friend help you. Easy steps to protect your feet: Check your feet every day for: dry or cracked skin, cuts, open sores, blisters, redness, swelling, corns, calluses, or toenail problems. Use a mirror if necessary. Report any problems to your doctor. Keep your feet clean and dry, especially between the toes. If your feet are dry or cracked use a moisturizing lotion at least daily but never between the toes. See your judicial clerk every three months for foot and nail care. Don't go barefoot. Wear shoes or slippers at all times. Wear comfortable shoes that fit well. Check inside your shoes for foreign objects or rough spots before putting on shoes. Always wear socks. Avoid using anything hot, such as heating pads, hot water bottles, hot tubs, or bath water. Check the temperature of bath water with your elbow not your foot. Take your shoes and socks off at every office visit to remind your doctor to check your feet. Also, never tape a dressing directly to the skin on your legs or feet. Instead, use a self-adherent bandage to avoid injuring the skin on your lower extremities If calluses form they can cause wound ulcers to appear under the callus, must be seen by [employer] every three months to prevent. Maintain controlled blood sugar, if blood sugar is consistently above 200 this can delay wound healing and aggravate neuropathy. To give your wound the best chance to heal: - Eat three balanced meals daily focusing on the protein - Control your blood sugar. Keep blood sugar less than 200 - Complete your wound care instructions as ordered - Vitamin C 500 mg twice daily - Multiple Vitamin Daily - Drink a protein shake daily - Premiere Clear or Glucerna for Diabetic patients, Nepro for renal patients and premiere for non-renal and non-diabetic patients Report any of the following signs and symptoms of infection to the Wound Center at [phone] or go to the Emergency Department: Fever or chills Increased drainage Green or yellow drainage Foul odor Increased pain Hardness around the wound Redness, warmth or swelling of the surrounding tissue Color change to the wound Evenings / Weekends / Holidays If you call the wound center at the phone number provided above, please leave a detailed message that includes your full name, birthday, and phone number. We are seeing patients during the day, so we will return your call within a 24-48 hr period in the order your call was received. There is not an on-call provider assigned to the wound center. If you have an emergency that needs to be addressed, please go to an Urgent Care or Emergency Room. Thank you for your cooperation and understanding. If you are feeling ill, please call to reschedule your appointment. If you believe your illness to be wound related, call and leave a message using the directions above describing your symptoms. If you cannot wait 24-48 hrs for a callback, please get evaluated in the nearest emergency department. PLAN/ORDERS: Follow-up in the Wound Center with Dr Pickard once a week: Continue aggressive nutritional support to assist wound healing, focusing on increasing protein intake, keeping blood sugars stable/controlled Blood sugars must be kept below 150 for wound healing Patient is a High Fall Risk due - UP WITH ASSIST ONLY HAVE PATIENT ATTEMPT CHAIR YOGA EXERCISES - LIMITED ANKLE MOVEMENT WEIGHT BEARING TOLERATED Please give patient premiere diabetic protein shakes 2 x daily between meals Hu Pickard DPM/nh/fm WOUND # 41 - LOCATION: Left Medial Ankle (NEW 07/26/24 L: 1.3 cm x W: 2.0 cm x D: 0.1 WOUND # 46 LOCATION: Left Lateral Lower Leg (NEW 10/12/24)) L: 3.1 cm x W: 0.8 cm x D: 0.1 cm WOUND # 45 - LOCATION: Right Anterior Lateral Lower Leg Cluster - (08/17/24 ) - closed 11/10/24 WOUND VAC WOUNDS: Wounds 39, 42 WOUND # 39 LOCATION: Right Achilles L: 9.5 cm x W: 4.5 cm x D: 1.5 cm - Tendon exposed Tunnel: in cm 0600: 3.0 to bone WOUND # 42 - LOCATION: Left Achilles (NEW 07/26/24) L: 10.5 cm x W: 3.8 cm x D: 1.5 cm - Tendon exposed WOUND # 43 - LOCATION: Left Dorsal / Lateral Foot -(NEW 07/26/24 L: 0.9 cm x W: 0.9 cm x D: 0.2 cm WOUND # 49 LOCATION: Left anterior lower leg - (new 11/10/24) - from foam being placed directly on skin L: 5.5 cm x W: 1.0 cm x D: 0.1 cm WOUND # 48 LOCATION: Right medial lower leg cluster - new 11/10/24 from foam being placed directly on skin L: 12 cm x W: 5.3 cm x D: 0.1 cm AOC: Right medial Foot: pat and protect documented in this encounter [facility] 11-10-2024 Note [facility] 10-27-2024 Note [facility] 10-27-2024 History of Presen t illness Narrative Date of Visit: 10/27/2024 Problem list reviewed. CHIEF COMPLAINT: check B/L lower leg wounds and NEW LEFT lower leg wounds and NEW RIGHT achilles rupture DM II A1c 7.4 (10/25/24) DLS 02/08/24 ADM 08/17/24 HISTORY OF PRESENT ILLNESS: Patient presents for BL leg wound check. She was admitted 08/17/24 and was DC to SNF where she is still at. She relates her insurance wouldn't cover it so she is self paying and planning on going to the nonskilled assistive living side next week. Prior to admission she was following with my colleague Dr Reyes but requests to see me moving forward. She is at [facility]. They have resumed the wound vac. She was DC on cipro and flagyl which she finished taking. Patient is taking protein drinks on own. She relates the facility isn't good about helping her dietary needs. They have started to give her the protein supplements though. She states pain is a 2/10. She relates she can't feel feet well and gets numbness. Referred by aircraft hydraulic equipment mechanic, Dr. Dasilva. Patient is DM and sees aircraft hydraulic equipment mechanic Denies N/V/F/C/D/SOB/CP/LP. PCN allergy Hx RT 3rd perc flexor tenotomy (07/26/23) HX R great toe amputation 06/18/23, excision tibial and fibular sesamoid, bone biopsy first met head. Right 2nd toe amputation and hallux I&D 10/28/22. Hx s/p RT toe amp 3,4,5 (DOS 10/14/23) DME DM inserts 08/24/23 rx circade wraps 08/14/22 CURRENT MEDICATIONS: oxyCODONE HCl Oral Tablet 5 MG (07/05/2024) Take 1 tablet every 12 hours as needed for 7 day(s) Percocet Oral Tablet 5-325 MG (07/20/2024) Take 1 tablet every 12 hours as needed for 7 day(s) oxyCODONE-Acetaminophen Oral Tablet 5-325 MG (10/28/2022) Ketorolac Tromethamine Ophthalmic Solution 0.5 % (04/26/2023) Accu-Chek Jose Plus In Vitro Strip (09/23/2022) Atorvastatin Calcium Oral Tablet 80 MG (06/13/2023) miSOPROStol Oral Tablet 200 MCG (06/15/2023) TAKE 2 TABLETS BY MOUTH THE DAY PRIOR TO PROCEDURE AT BEDTIME WITH FOOD Fluticasone Propionate Nasal Suspension 50 MCG/ACT (12/15/2022) USE 2 SPRAYS IN EACH NOSTRIL DAILY X1 WEEK,THEN 1 SPRAY IN EACH NOSTRIL DAILY THEREAFTER NEEDED Nitrofurantoin Monohyd Macro Oral Capsule 100 MG (02/08/2023) Fluconazole Oral Tablet 200 MG (03/20/2024) TAKE 1 TABLET EVERY DAY FOR 21 DAYS Bactrim DS Oral Tablet 800-160 MG (06/24/2023) Take 1 tablet twice a day for 10 day(s) Ofloxacin Ophthalmic Solution 0.3 % (03/30/2023) diazePAM Oral Tablet 10 MG (02/19/2022) TAKE 1 TABLET 60 MIN BEFORE TEST Atorvastatin Calcium Oral Tablet 40 MG (11/18/2022) FLUoxetine HCl Oral Capsule 40 MG (01/26/2022) Enalapril Maleate Oral Tablet 10 MG (01/26/2022) TAKE 1 TABLET BY MOUTH EVERY DAY Erythromycin Ophthalmic Ointment 5 MG/GM (02/09/2022) APPLY 1 A SMALL AMOUNT LEFT EYE 4 TIMES A DAY Atorvastatin Calcium Oral Tablet 20 MG (01/26/2022) TAKE 1 TABLET BY MOUTH EVERY DAY Spironolactone Oral Tablet 25 MG (06/15/2023) TAKE 0.5 TABLETS BY MOUTH ONCE DAILY. Jardiance Oral Tablet 25 MG (06/14/2023) TAKE 1 TABLET BY MOUTH EVERY DAY WITH BREAKFAST Furosemide Oral Tablet 40 MG (11/18/2022) HumuLIN R U-500 KwikPen Subcutaneous Solution Pen-injector 500 UNIT/ML (06/14/2023) INJECT 40 UNITS SUBCUTANEOUSLY AT BREAKFAST, 100 UNITS AT LUNCH, 80 UNITS AT SUPPER. metFORMIN HCl Oral Tablet 1000 MG (11/23/2022) TAKE 1 TABLET BY MOUTH TWICE DAILY WITH MEALS. [id number] ALLERGIES: Amoxicillin Unknown Band-Aid [place] Surg Dressing Other Bandaging Tape Other PAST MEDICAL HISTORY: Podiatry History remarkable for Foot Numbness, Fungal Nails, Leg or Foot Ulcers. The patient has a past medical history of Arthritis, Depression, DM-Medication Dependent, Poor Circulation. Neuropathy High Cholesterol SURGICAL HISTORY: Hand Tonsils HOSPITALIZATIONS: None Noted SOCIAL HISTORY: Smoking Status: Never smoker; Last Reviewed: 12/08/2023 Alcohol use: social drinker No drug use Social History Reviewed (01/16/2021 11:20:18 AM EST) FAMILY HISTORY: There is a family history of Denial of any knowledge of significant family history. Denial of any knowledge of significant family history Family History Reviewed (01/16/2021 11:20:19 AM EST) REVIEW OF SYSTEMS: Psychologic: Admits to No psych symptoms. Review of systems otherwise negative PHYSICAL EXAMINATION: Vital Signs: Weight 235 lbs; Height 5 ft 8 in; BMI 35.7 10/25/2024 12:21 PM (EST) Temperature 98.6 F; Pulse Rate 100 bpm; Blood Pressure 120 / 80 mm/Hg Vascular Exam: DP pulses of the RIGHT and LEFT foot are +1/4 PT pulses of the RIGHT and LEFT foot are +1/4 CFT is within normal limits, less than 3s to all digits, both feet. Skin temperature from proximal to distal is warm to warm, both feet. BL LE edema Dermatologic Exam: LEFT hallux wound healed and LEFT anterior lower leg wound healed LEFT lateral lower leg wound predebridement measures 9.5x2.4x0.1cm and post debridement measures 9.6x2.6x0.1cm with 70:30 granular fibrotic base, surrounding slough, no erythema, no purulence, no probe to bone, no malodor, moderate serosanguinous drainage. Into level of SUBCUTANEOUS TISSUE, partial thickness LEFT posterior Achilles lower leg wound predebridement measures 10.7x4.6x0.7cm and post debridement measures 10.9x4.8x0.8cm with 65:35 granular fibrotic base, surrounding slough, no surrounding edema and erythema, no purulence expressed, no probe to bone-exposed achilles tendon with complete RUPTURE, mild malodor, moderate serosanginous drainage. Into level of TENDON. LEFT dorsal lateral foot cluster wound predebridement measures 3.5x1.7x0.3cm and post debridement measures 3.6x1.9x0.4cm with 70:30 granular fibrotic base, no surrounding callus, no surrounding edema and erythema, no purulence expressed, no probe to bone-5th MPJ exposed, no malodor, moderate serosanginous drainage. Into level of FASCIA/CAPSULE. LEFT medial ankle wound predebridement measures 1.3x1.8x0.1cm and post debridement measures 1.4x2.0x0.1cm with 50:50 granular fibrotic base, minimal surrounding slough, no surrounding edema and erythema, no purulence expressed, no probe to bone, no malodor, moderate serosanginous drainage. Into level of SUBCUTANEOUS tissue. RIGHT posterior Achilles lower leg wound predebridement measures 9.2x5.1x0.6cm and post debridement measures 9.3x5.2x0.8cm with 60:40 granular fibrotic base, surrounding slough, no surrounding edema and erythema, no purulence expressed, no probe to bone-Exposed achilles tendon posteriorly with fraying and complete RUPTURE, no malodor, moderate serosanginous drainage. Into level of TENDON. RIGHT anterior lateral lower leg cluster wound predebridement measures 6.5x6.8x0.1cm and post debridement measures 6.6x7.0x0.1cm with 60:40 granular fibrotic base, surrounding slough, no surrounding edema and erythema, no purulence expressed, no probe to bone, no malodor, moderate serosanginous drainage. Into level of SUBCUTANEOUS layer. LEFT foot 2nd toe tuft hyperkeratotic tissue Nails 2-5 left are thickened, elongated and discolored with subungual debris. The nails are greater than .3mm in thickness. The discoloration is yellowish in color. Innerspaces 1-4 LT are clean dry and intact. Skin texture and turgor are decreased. absent or decreased hair growth bilateral. chronic lower leg red hyperpigmentation Neurologic Exam: Comments/Other Findings: Vibratory sensations decreased LT, Protective sensations absent LT tested with 5.07 monofilament, and light, sharp, and temperature sensations intact LT. Normal Babinski test noted bl foot after testing Orthopedic Exam: Additional Orthopedic Findings: RIGHT foot toe amputations 1,2,3,4,5 LEFT 2nd hammertoe contracture semi- rigid BL foot with absent plantar flexion 0/5 muscle strength with palpable rupture to achilles tendon DIAGNOSIS: Type II diabetes mellitus with neurological manifestations PVD (peripheral vascular disease) Amputated toe of right foot Personal history of diabetic foot ulcer Callus Onychomycosis Venous ulcer of left lower extremity without varicose veins Ulcer of left lower extremity, limited to breakdown of skin Venous ulcer of right lower extremity without varicose veins Ulcer of right lower extremity, limited to breakdown of skin 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 Diabetic foot ulcer Diabetic leg ulcer Achilles rupture, left 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 Achilles rupture, right Ulcer of left foot with fat layer exposed Skin ulcer of left great toe, limited to breakdown of skin Malnutrition PLAN AND TREATMENT: ASSESMENT & PLAN BL Foot and Ankle and Lower extremity Exam and Evaluation carried out with a treatment plan reviewed with the patient and findings discussed with patient including alternatives, benefits, complications and risks TESTS / IMAGING / X-RAY EXAM PREVIOUS right foot XR: There was noted to be normal joint spaces unless noted. No fractures or dislocations noted. No soft tissue emphysema noted. No osteopenia or sclerosis noted. tibial and fibular sesamoid excised, there is small calcified piece of fibular sesamoid bone noted to plantar lateral 1st met. RT foot amp at MTPJ 1,2,3,4,5. no lytic lesions. no soft tissue gas noted. 08/17/24 Xray left foot: No radiographic presence of OM 08/17/24 Xray tib/fib left leg: No radiographic presence of OM 08/17/24 Xray tib/fib right leg: No radiographic presence of OM 08/17/24 CRP: 13.6 and 08/18/24 ESR: 97 04/05/24 PVR b/l leg: Left MANJEET 0.9 and Right 0.95 08/18/24 Left leg wound culture: Few pseudomonas aeruginosa FINAL 08/18/24 MRI BL LE: 1. No drainable soft tissue abscess or evidence for osteomyelitis 2. Diffuse edema/cellulitis and fatty muscle atrophy with nonspecific myositis. 10/01/24 albumin: 3.3 LEFT lateral lower leg ulcer stable. LEFT posterior achilles lower leg ulcer stable. LEFT dorsal lateral foot cluster ulcer stable. LEFT medial ankle ulcer stable. RIGHT posterior achilles lower leg ulcer stable. RIGHT anterior lateral lower leg cluster ulcer stable. LEFT hallux ulcer healed. LEFT anterior lower leg ulcer healed. LEFT medial ankle ulcer, LEFT lateral lower leg ulcer, RIGHT anterior lateral lower leg cluster ulcer treated with sharp excisional debridement carried out of the wound with non selective sharp excisional debridement past the dermis into SUBCUTANEOUS level with use of curette and 15 scalpel blade. Devitalized tissue removed. We then flushed out the wound with wound wash sterile saline. Area numbed with lidocaine gel if sensate prior. LEFT posterior achilles lower leg ulcer, LEFT dorsal lateral foot cluster ulcer, RIGHT posterior Achilles lower leg ulcer treated with sharp excisional debridement carried out of the wound with non selective sharp excisional debridement past the dermis into FASCIA and FAT level with use of curette and 15 scalpel blade. Devitalized tissue removed and we then flushed out the wound with wound wash sterile saline. Area numbed with lidocaine gel if sensate prior. Discussed importance in offloading, proper nutrition including blood sugar control and getting enough protein and vitamins, infection prevention, and proper wound care in wound healing. Also discussed detrimental impact of smoking on healing. Reviewed proper wound care with patient. To not soak wound but to clean appropriately. To watch for signs of infection both local and systemic. These were reviewed with the patient. If seen to contact office or go to ED. To continue wound care consisting of washing the wound with soap and water or vashe solution soaked gauze for 3-5 minutes. Then to apply dressing consisting of dakins wet to dry to BL achilles wounds and left dorsolateral foot with intention of facility applying adaptic and wound vac to these areas with left foot bridge between the 2 wounds. To rest of wounds apply jose a, adaptic, 4x4, kerlix and light olegario. To change 3 times a week. Cont BL wound vacs. Discussed need to fill in the deficit from BL achilles rupture as well as to get coverage over achilles. Discussed wound vac is best option. Discussed would need to fill in wounds a bit more with wound vac before considering grafting. Discussed with both achilles ruptured she will struggle with push off in gait. Discussed achilles likely ruptured due to chronic ulceration with infections and drying out of tendon. Discussed if we can get her healed she will need AFO to aid in walking. Discussed she is at high risk for BKA BL. Discussed she can weight bear as tolerated. Discussed need assist for activities as she is a high fall risk. Discussed limiting motion at ankle joint to stop tugging on wounds to aid in healing. Discussed need to balance this with maintaining muscle. Discussed need for better nutrition Patient educated on the importance of proper nutrition to help optimize healing. Discussed eating three balanced meals daily and meal preparation. Discussed importance of high protein intake. Discussed supplementation drinks such as ensure, glucerna, nepro, tamiko. Discussed need for blood sugar control, proper vitamin intake whether dietary or through supplementation. Discussed Vitamin C, Multi Vitamin, zinc, and magnesium supplementation. Discussed may need to watch sodium intake as well especially if patient experiences swelling. Offered nutrition referral. Patient taking protein supplement drink BID between meals Future plan to take to OR for possible grafting if can fill in some depth with wound vac vs office grafting Follow up in 2 weeks for check with continued monitoring at SNF and see if started working with PT or got moved to nonskilled assistive living Type II diabetes mellitus with neurological manifestations 250.60 E11.49 Diagnosis Notes Drag & Drop to change diagnosis order PVD (peripheral vascular disease) 443.9 I73.9 Diagnosis Notes Drag & Drop to change diagnosis order Amputated toe of right foot 895.0 S98.131A Diagnosis Notes Drag & Drop to change diagnosis order Personal history of diabetic foot ulcer V12.29 Z86.31 Diagnosis Notes Drag & Drop to change diagnosis order Callus 700 L84 Diagnosis Notes Drag & Drop to change diagnosis order Onychomycosis 110.1 B35.1 Diagnosis Notes Drag & Drop to change diagnosis order Venous ulcer of left lower extremity without varicose veins 459.81 I87.2 Diagnosis Notes Drag & Drop to change diagnosis order Ulcer of left lower extremity, limited to breakdown of skin 707.10 L97.921 Diagnosis Notes Drag & Drop to change diagnosis order Venous ulcer of right lower extremity without varicose veins 459.81 I87.2 Diagnosis Notes Drag & Drop to change diagnosis order Ulcer of right lower extremity, limited to breakdown of skin 707.10 L97.911 Diagnosis Notes Drag & Drop to change diagnosis order 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 707.13 L97.323 Diagnosis Notes Drag & Drop to change diagnosis order Diabetic foot ulcer 250.80 E11.621 Diagnosis Notes Drag & Drop to change diagnosis order Diabetic leg ulcer 250.80 E11.622 Diagnosis Notes Drag & Drop to change diagnosis order Achilles rupture, left 845.09 S86.012A Diagnosis Notes Drag & Drop to change diagnosis order 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 707.13 L97.312 Diagnosis Notes Drag & Drop to change diagnosis order Achilles rupture, right 845.09 S86.011A Diagnosis Notes Drag & Drop to change diagnosis order Ulcer of left foot with fat layer exposed 707.15 L97.522 Diagnosis Notes Drag & Drop to change diagnosis order Skin ulcer of left great toe, limited to breakdown of skin 707.15 L97.521 Diagnosis Notes Drag & Drop to change diagnosis order Malnutrition 263.9 E46 Nursing Documentation Pertinent Medical History: DM2, HTN, venous insufficiency, & heart failure Wound Etiology according to patient: wounds started February 2024 Pt had right great toe amputation June 18, 2023 Patient arrived via: Ambulatory with [employer]/Nursing Facility: N/A Consent captured for debridement per Hu Pickard DPM and good until April 2025 Anticoagulant Therapy: ASA 81mg ACTIVE CARE PER PROVIDER: Hu Pickard DPM Application Dates: Grafts are complete 01/07/2023 [facility] 01/15/2023 [facility] 01/21/2023 A[facility] 01/27/2023 A[facility] 02/04/2023 [facility] Wounds 1-38 previously closed 40 closed 44 closed 47 Closed WOUND ASSESSMENT: Refer to Provider's Wound Assessment Note VASCULAR ASSESSMENT BY PROVIDER: See provider wound assessment note CHF History: Yes as of February 2022, Dr. Sadler in Cardiology EDEMA: Right Foot: 1+ Right Calf: 2+ Left Foot: Brawny Left Calf: 2+ MEASUREMENTS: in CM Right Calf: 32.1 Right Ankle: 24.0 Left Calf: 32.0 Left Ankle: 24.9 Length: 43.0 WOUND PHOTOGRAPHY: date taken 10/27/23 DEBRIDEMENT PROCEDURE BY PROVIDER: Anesthetic Used: n/a Other procedure: N/A Specimen collected: N/A WOUND TREATMENT PER MD ORDER: Wounds cleansed by mechanical debridement to allow provider to visualize wound base 07/05/24: Patient reports wosening heart failure; states she has a lot more swelling in the legs and has had trouble breathing when trying to lay in bed to sleep; weight today = 247lbs (up almost 25lbs since 2023). Message sent to Ayan Wallis CNP with heart failure clinic. Patient states she has been speaking to Ayan via telephone regarding weight gain. 07/26/24: Pt with increased pain, drainage, redness noted to bilateral lower legs. New wounds present on bilateral lower legs. Pt stated that she did not come to appointment last week with Dr. Reyes due to not feeling well, stated that her legs were giving her issues. Discussed with pt the importance of not waiting to be seen if her Dr. Reyes would like pt to go to the ER. LEFT LOWER LEG WOUNDS *Silicone Allergy WOUND # 41 - LOCATION: Left Medial Ankle (NEW 07/26/24 L: 1.4 cm x W: 2.0 cm x D: 0.1 WOUND # 46 LOCATION: Left Lateral Lower Leg (NEW 10/12/24)) L: 9.6 cm x W: 2.6 cm x D: 0.1 cm Wounds 41, 46, Cleansed with: Vashe Applied to naya-wound skin:skin prep Applied to wound bed: jose a, adaptic Covered and secured with: 4x4's, ABD pads, Kerlix, & Tape Secure with olegario wrap from behind the toes to 1 below the knee Lose to only secure the dressings - - - - - - - - - - - - - - - - - - - - - - - - - - - - - - - - - - - - - - - - - - - - - - - - - - - - - - - - - - - - - - - - - - - - - - - - WOUND VAC WOUNDS: Wounds 39, 42, 43 WOUND # 39 LOCATION: Right Achilles L: 9.3 cm x W: 5.2 cm x D: 1.7 cm - Tendon exposed 08/17/24 Track pad placed on the right anterior/medial lower leg WOUND # 42 - LOCATION: Left Achilles (NEW 07/26/24) L: 10.9 cm x W: 4.8 cm x D: 1.5 cm - Tendon exposed WOUND # 43 - LOCATION: Left Dorsal / Lateral Foot -(NEW 07/26/24 L: 3.6 cm x W: 1.9 cm x D: 0.4 cm track pad placed on the left anterior/medial lower leg Cleansed with: Vashe Applied to naya-wound skin: gentian rimma, skin prep, duoderm, saul seal Applied to wound bed: adaptic, black foam Covered and secured with: drape, track pad, ABD pads, Kerlix, & Tape Secure with olegario wrap from behind the toes to 1 below the knee Lose to only secure dressings - - - - - - - - - - - - - - - - - - - - - - - - - - - - - - - - - - - - - - - - - - - - - - - - - - - - - - - - - - - - - - - - - - - - - - - - RIGHT LOWER LEG WOUNDS WOUND # 45 - LOCATION: Right Anterior Lateral Lower Leg Cluster - (08/17/24 ) L: 6.6 cm x W: 7.0 cm x D: 0.1 cm Cleansed with: Vashe Applied to naya-wound skin:skin prep Applied to wound bed: jose a, adaptic Covered and secured with: 4x4's, ABD pads, Kerlix, & Tape Secure with olegario wrap from behind the toes to 1 below the knee AOC: Right medial Foot: COMPRESSION: NO COMPRESSION. Olegario wraps only to secure dressings SPECIAL NEEDS: Coordination of care - [facility] [place] Emotional support N/A OR set-up N/A Yarn Examiner N/A Incontinence needs N/A [employer] company: ordered 03/01/24 Farrow wraps, Supplies ordered 06/07/2024 x 30 days with 2 refills DISCHARGED in stable condition to: Facility [facility] PLAN/ORDERS: Follow-up in the Wound Center with Dr Pickard: 11/10/2024 @ 0900 11/24/2024 @ 0900 Continue aggressive nutritional support to assist wound healing, focusing on increasing protein intake, keeping blood sugars stable/controlled Blood sugars must be kept below 150 for wound healing Patient is a High Fall Risk due - UP WITH ASSIST ONLY HAVE PATIENT ATTEMPT CHAIR YOGA EXERCISES - LIMITED ANKLE MOVEMENT WEIGHT BEARING TOLERATED Please give patient premiere diabetic protein shakes 2 x daily between meals OTHER EDUCATION: WOUND DETERIORATION WOUND VAC ACTIVITY LIMITED FALL RISK No bend of the ankle Education performed regarding lymphedema/edema: Elevation of extremity above the heart for 30 minutes three times daily and as needed Exercise such as writing the ABC's with your toes in the air, walking and/or calf pumps Wearing compression as ordered by provider Diet controlling of sodium as instructed by provider Use of medication to help control edema. UNIVERSAL PROTOCOL / SAFETY CHECKLIST Procedure to be Performed sharp debridement of Bilateral Lower Legs Sign In: 1002 A Moment of CARE was completed. Personnel directly involved with the procedure wore the appropriate PPE (Personal Protective Equipment). Patient/Surrogate Stated/Verified: PATIENT VERIFIED(optional for EMERGENT procedures): Patient name, Date of , Relevant allergies, and The intended procedure Time Out Communication: 1010 Intended patient and procedure match the source documents. Consent documented and matches the intended procedure. No relevant labs, photos, and/or imaging studies were applicable for review. Sign Out: 1026 SIGN OUT (optional for EMERGENT procedures): All instruments, equipment, possible retained foreign bodies accounted for. Current HBOT Status: Active or Complete - see screening below WOUND CENTER HYPERBARIC OXYGEN THERAPY SCREENING 1. Is the patient diabetic? (If No, skip to question 5) Yes 2. Does the patient have a lower extremity wound? Yes 3. Is there exposed/involved tendon or bone? yes 4. Has the wound been present for 30 days? Yes If Yes to ALL questions above, [facility] the [facility] 5. Has the patient been diagnosed with osteomyelitis? No 6. Has the patient had a previous skin graft or flap at the wound? No 7. Has the patient had or been offered vascular intervention/evaluation? No 8. Does the patient have a wound at an amputation site? Yes 9. Has the patient had radiation therapy at the site of the problem? No If Yes to ANY of questions 5-9, [facility] Benitez in to evaluate for HBOT documented in this encounter [facility] 10-27-2024 Instructions Bonnie Molina RN - 10/27/2024 9:26 AM EST WOUND CARE INSTRUCTIONS- Shade Brambila Wound location: Bilateral Lower Legs [facility] HOME: FAX: [phone] PLEASE ATTEMPT TO FEED THE PATIENT A DIABETIC DIET Diabetic Premiere Protein Shakes 2 x daily between meals May ambulate with Assistance Physical Therapy to assess what level of aid the patient needs to ambulate with assistance Patient may bear weight 1. Wash your hands with soap and water before and after wound care. 2. Gather all supplies needed. 3. Take a clean 4x4 gauze and moisten with a few drops of Vashe (blue bottle) and allow to soak for 5-10 minutes, then remove and pat dry. Left medial Ankle, Left Lateral Lower leg, Right Anterior Lateral Lower leg 4. Apply to the wound base: jose a 5. Cover with: adaptic 6. Secure dressing with: 4x4's, abd pads 7. Change your dressing: M-W-F and as needed to keep clean and dry 8. Secure with olegario wrap from behind the toes to 1 below the knee - OLEGARIO WRAPS ARE NOT FOR COMPRESSION - THEY ARE ONLY TO HELP KEEP DRESSINGS IN PLACE Bilateral Achilles and Left Dorsal/Lateral (Proximal to 5th toe) Alternate Dressing 4. Apply to the wound base: dakins moistened gauze packed in to the wound bed 5. Cover with: drawtex, 4x4's, abd pads 6. Secure dressing with: conform or kerlix wrap. tape 7. Change your dressing: Daily and as needed to keep clean and dry 8. Secure with olegario wrap from behind the toes to 1 below the knee - OLEGARIO WRAPS ARE NOT FOR COMPRESSION - THEY ARE ONLY TO HELP KEEP DRESSINGS IN PLACE Please apply a wound vac on both achilles and Left Dorsal/Lateral (Proximal to 5th toe) foot KCL Recommended Settings: 175 mmHg, continuous Intensity High Continuous suction Wound Vac: Skin prep to naya-wound Duoderm to naya-wound of all wounds Eaken seal around the wound edge of each wound Apply adaptic to the entire wound base all 3 wounds Black foam to wound bed - be sure to not over pack wound with foam Track pad to be placed avoiding all bony prominence Pad and protect skin from tubing at all times Change dressing 3 x weekly and as needed to keep clean and dry Apply a loose olegario wrap to secure dressings - Avoid sitting with legs in a dependent position or standing for long periods of time. - Attempt to lay flat and elevate your legs above the level of your heart 2-3 times daily, for 30 minutes at a time. - Be sure to continue walking and/or calf pumps and exercises to mimic writing the alphabet with your foot, as instructed Foot care Many people with diabetes lose the feeling in their feet (neuropathy). Therefore, they might not know they have an injury that can lead to serious problems, such as foot removal (amputation). By taking care of your feet, most serious problems can be prevented. If you have problems checking your own feet, have a family member or friend help you. Easy steps to protect your feet: Check your feet every day for: dry or cracked skin, cuts, open sores, blisters, redness, swelling, corns, calluses, or toenail problems. Use a mirror if necessary. Report any problems to your doctor. Keep your feet clean and dry, especially between the toes. If your feet are dry or cracked use a moisturizing lotion at least daily but never between the toes. See your judicial clerk every three months for foot and nail care. Don't go barefoot. Wear shoes or slippers at all times. Wear comfortable shoes that fit well. Check inside your shoes for foreign objects or rough spots before putting on shoes. Always wear socks. Avoid using anything hot, such as heating pads, hot water bottles, hot tubs, or bath water. Check the temperature of bath water with your elbow not your foot. Take your shoes and socks off at every office visit to remind your doctor to check your feet. Also, never tape a dressing directly to the skin on your legs or feet. Instead, use a self-adherent bandage to avoid injuring the skin on your lower extremities If calluses form they can cause wound ulcers to appear under the callus, must be seen by [employer] every three months to prevent. Maintain controlled blood sugar, if blood sugar is consistently above 200 this can delay wound healing and aggravate neuropathy. To give your wound the best chance to heal: - Eat three balanced meals daily focusing on the protein - Control your blood sugar. Keep blood sugar less than 200 - Complete your wound care instructions as ordered - Vitamin C 500 mg twice daily - Multiple Vitamin Daily - Drink a protein shake daily - Premiere Clear or Glucerna for Diabetic patients, Nepro for renal patients and premiere for non-renal and non-diabetic patients Report any of the following signs and symptoms of infection to the Wound Center at [phone] or go to the Emergency Department: Fever or chills Increased drainage Green or yellow drainage Foul odor Increased pain Hardness around the wound Redness, warmth or swelling of the surrounding tissue Color change to the wound Evenings / Weekends / Holidays If you call the wound center at the phone number provided above, please leave a detailed message that includes your full name, birthday, and phone number. We are seeing patients during the day, so we will return your call within a 24-48 hr period in the order your call was received. There is not an on-call provider assigned to the wound center. If you have an emergency that needs to be addressed, please go to an Urgent Care or Emergency Room. Thank you for your cooperation and understanding. If you are feeling ill, please call to reschedule your appointment. If you believe your illness to be wound related, call and leave a message using the directions above describing your symptoms. If you cannot wait 24-48 hrs for a callback, please get evaluated in the nearest emergency department. PLAN/ORDERS: Follow-up in the Wound Center with Dr Pickard: 11/10/2024 @ 0900 11/24/2024 @ 0900 Continue aggressive nutritional support to assist wound healing, focusing on increasing protein intake, keeping blood sugars stable/controlled Blood sugars must be kept below 150 for wound healing Patient is a High Fall Risk due - UP WITH ASSIST ONLY HAVE PATIENT ATTEMPT CHAIR YOGA EXERCISES - LIMITED ANKLE MOVEMENT WEIGHT BEARING TOLERATED Please give patient premiere diabetic protein shakes 2 x daily between meals Hu Pickard DPM/mjl/aa/lt WOUND # 41 - LOCATION: Left Medial Ankle (NEW 07/26/24 L: 1.4 cm x W: 2.0 cm x D: 0.1 WOUND # 46 LOCATION: Left Lateral Lower Leg (NEW 10/12/24)) L: 9.6 cm x W: 2.6 cm x D: 0.1 cm WOUND # 45 - LOCATION: Right Anterior Lateral Lower Leg Cluster - (08/17/24 ) L: 6.6 cm x W: 7.0 cm x D: 0.1 cm WOUND VAC WOUNDS: Wounds 39, 42, 43 WOUND # 39 LOCATION: Right Achilles L: 9.3 cm x W: 5.2 cm x D: 1.7 cm - Tendon exposed 08/17/24 WOUND # 42 - LOCATION: Left Achilles (NEW 07/26/24) L: 10.9 cm x W: 4.8 cm x D: 1.5 cm - Tendon exposed WOUND # 43 - LOCATION: Left Dorsal / Lateral Foot -(NEW 07/26/24 L: 3.6 cm x W: 1.9 cm x D: 0.4 cm AOC: Right medial Foot: pat and protect documented in this encounter [facility] 10-27-2024 Note [facility] 10-25-2024 Instructions Giovanni Cerrato MD - 10/25/2024 10:51 AM EST A1C 7.4% Continue current medications. See us again in 6 months. Check fasting lipid panel and urine microalbumin/creatinine ratio, fax results to [phone]. documented in this encounter [facility] 10-25-2024 Note HNO ID: [id number] Author: GIOVANNI CERRATO MD Service: ? Author Type: Physician Type: Progress Notes Filed: 10/27/2024 08:54 Note Text: Follow-up 64 year-old female resident at [facility], with insulin-requiring type 2 diabetes mellitus since 1998. Takes metformin 1000 mg every day, Jardiance, and sliding scale Humalog She has a FreeStyle CGMS. She notes no recent hypoglycemia detected by her glucose sensor. Non-smoker, denies alcohol use. NKDA. Review of her diet shows less overindulgence in carbohydrates. Medication list, insulin doses reviewed with the patient, reconciled. Maximal lifetime weight was 260 pounds. Had diabetic eye exam in 02/2024. 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 Weight has been decreasing. Hospitalized in 10/2023 with toe ulcer and had remaining toes removed (now functionally a TMA). Has bilateral leg ulcers, followed by podiatry. Has three wound vacs on currently. No longer needing U500 insulin. Current Outpatient Medications on File Prior to Visit Medication Sig sodium phosphate,mono-dibasic (ENEMA RECTAL) by RECTAL route as needed (constipation). may be given daily, if needed ferrous sulfate 325 mg (65 mg iron) tablet Take 325 mg by mouth once daily. bisacodyl (DULCOLAX) 10 mg supp 10 mg by RECTAL route once daily as needed for constipation. magnesium hydroxide (MOM) 400 mg/5 mL suspension Take 30 mL by mouth once daily as needed for constipation. senna-docusate (SENEXON-S) 8.6-50 mg per tablet Take 1 tablet by mouth as needed for constipation. naloxone (NARCAN) 1 mg/mL for intranasal administration 1 mg by INTRANASAL route as needed for known or suspected opioid overdose. Once for opioid overdose may repeat every 2-3 min insulin lispro 100 unit/mL injection Sliding scale- Blood sugar 111-150 Give 0 units 151-200 Give 1 unit 201-250 Give 2 units 251-300 Give 3 units 301-350 Give 4 units 351-400 Give 5 units Greater than 400 Give 5 units and Notify Provider fluticasone (FLONASE) 50 mcg/actuation nasal spray Use 2 Sprays in each nostril once daily. ondansetron (ZOFRAN) 4 mg tablet Take 4 mg by mouth every 8 hours as needed for nausea/vomiting. traMADol (ULTRAM) 50 mg tablet Take 50 mg by mouth every 6 hours as needed for pain. acetaminophen (TYLENOL) 325 mg tablet Take 2 tablets by mouth every 6 hours as needed for fever (specify temp.) or pain (temp >100.1F). senna (SENOKOT) 8.6 mg tab Take 1 tablet by mouth two times a day. (Patient taking differently: Take 8.6 mg by mouth as needed.) empagliflozin (JARDIANCE) 25 mg tablet TAKE 1 TABLET BY MOUTH EVERY DAY WITH BREAKFAST ACCU-CHEK JOSE PLUS TEST STRP test strip USE TO TEST BLOOD GLUCOSE 3 TIMES DAILY enalapril (VASOTEC) 20 mg tablet Take 0.5 tablets by mouth two times a day. atorvastatin (LIPITOR) 80 mg tablet take 1 tablet by mouth every day furosemide (LASIX) 20 mg tablet Take 20 mg by mouth once daily. 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 aspirin, enteric coated (ASPIRIN, ENTERIC COATED) 81 mg EC tablet Take 81 mg by mouth once daily. cyanocobalamin, vitamin B-12, 1,000 mcg/mL kit 1,000 mcg by INJECTION(UNSPECIFIED PARENTERAL ROUTES) route once every month. Blood Pressure Monitor Please monitor blood pressure 1-2 hours after taking morning medications. Zinc 50 mg tab Take 50 mg by mouth once daily. multivit,thx,calcium,iron,mins (MULTIVITAMIN AND MINERAL ORAL) Take 1 tablet by mouth once daily. FLUoxetine (PROZAC) 40 mg capsule Take by mouth q 24 HR. lancets (ONE TOUCH DELICA) 33 gauge USE TO BLOOD GLUCOSE 3 TIMES DAILY. INSULIN DEPENDENT E11.3299, E11.65, Z79.4 insulin needles, DISPOSABLE, (BD INSULIN PEN NEEDLE UF) 31 gauge x 5/16 FOUR DAILY FOR INSULIN INJECTIONS. Blood-Glucose Meter [facility] Use to test blood glucose 3 times daily. Insulin Dependent E11.3299, E11.65, Z79.4 Cholecalciferol, Vitamin D3, 50 mcg (2,000 unit) cap Take 1 tablet by mouth once daily. 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 Vitamin D deficiency 01/05/2017 PAST SURGICAL HISTORY PAST SURGICAL HISTORY Procedure Laterality Date DANDC, DIAG AND/OR THERAPEUTIC x3 EXTENSIVE HAND SURGERY Dupuytren contracture TONSILLECTOMY HX Review of systems: Patient notes no weight gain, fever, weakness, change in balance or sensation, visual problems, hearing changes, dizziness, troub (more content not included)... [facility] 10-25-2024 History of Presen t illness Narrative Follow-up 64 year-old female resident at [facility], with insulin-requiring type 2 diabetes mellitus since 1998. Takes metformin 1000 mg every day, Jardiance, and sliding scale Humalog She has a Iggliyle CGMS. She notes no recent hypoglycemia detected by her glucose sensor. Non-smoker, denies alcohol use. NKDA. Review of her diet shows less overindulgence in carbohydrates. Medication list, insulin doses reviewed with the patient, reconciled. Maximal lifetime weight was 260 pounds. Had diabetic eye exam in 02/2024. 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 Weight has been decreasing. Hospitalized in 10/2023 with toe ulcer and had remaining toes removed (now functionally a TMA). Has bilateral leg ulcers, followed by podiatry. Has three wound vacs on currently. No longer needing U500 insulin. Current Outpatient Medications on File Prior to Visit Medication Sig sodium phosphate,mono-dibasic (ENEMA RECTAL) by RECTAL route as needed (constipation). may be given daily, if needed ferrous sulfate 325 mg (65 mg iron) tablet Take 325 mg by mouth once daily. bisacodyl (DULCOLAX) 10 mg supp 10 mg by RECTAL route once daily as needed for constipation. magnesium hydroxide (MOM) 400 mg/5 mL suspension Take 30 mL by mouth once daily as needed for constipation. senna-docusate (SENEXON-S) 8.6-50 mg per tablet Take 1 tablet by mouth as needed for constipation. naloxone (NARCAN) 1 mg/mL for intranasal administration 1 mg by INTRANASAL route as needed for known or suspected opioid overdose. Once for opioid overdose may repeat every 2-3 min insulin lispro 100 unit/mL injection Sliding scale- Blood sugar 111-150 Give 0 units 151-200 Give 1 unit 201-250 Give 2 units 251-300 Give 3 units 301-350 Give 4 units 351-400 Give 5 units Greater than 400 Give 5 units and Notify Provider fluticasone (FLONASE) 50 mcg/actuation nasal spray Use 2 Sprays in each nostril once daily. ondansetron (ZOFRAN) 4 mg tablet Take 4 mg by mouth every 8 hours as needed for nausea/vomiting. traMADol (ULTRAM) 50 mg tablet Take 50 mg by mouth every 6 hours as needed for pain. acetaminophen (TYLENOL) 325 mg tablet Take 2 tablets by mouth every 6 hours as needed for fever (specify temp.) or pain (temp >100.1F). senna (SENOKOT) 8.6 mg tab Take 1 tablet by mouth two times a day. (Patient taking differently: Take 8.6 mg by mouth as needed.) empagliflozin (JARDIANCE) 25 mg tablet TAKE 1 TABLET BY MOUTH EVERY DAY WITH BREAKFAST ACCU-CHEK JOSE PLUS TEST STRP test strip USE TO TEST BLOOD GLUCOSE 3 TIMES DAILY enalapril (VASOTEC) 20 mg tablet Take 0.5 tablets by mouth two times a day. atorvastatin (LIPITOR) 80 mg tablet take 1 tablet by mouth every day furosemide (LASIX) 20 mg tablet Take 20 mg by mouth once daily. 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 aspirin, enteric coated (ASPIRIN, ENTERIC COATED) 81 mg EC tablet Take 81 mg by mouth once daily. cyanocobalamin, vitamin B-12, 1,000 mcg/mL kit 1,000 mcg by INJECTION(UNSPECIFIED PARENTERAL ROUTES) route once every month. Blood Pressure Monitor Please monitor blood pressure 1-2 hours after taking morning medications. Zinc 50 mg tab Take 50 mg by mouth once daily. multivit,thx,calcium,iron,mins (MULTIVITAMIN AND MINERAL ORAL) Take 1 tablet by mouth once daily. FLUoxetine (PROZAC) 40 mg capsule Take by mouth q 24 HR. lancets (ONE TOUCH DELICA) 33 gauge USE TO BLOOD GLUCOSE 3 TIMES DAILY. INSULIN DEPENDENT E11.3299, E11.65, Z79.4 insulin needles, DISPOSABLE, (BD INSULIN PEN NEEDLE UF) 31 gauge x 5/16 FOUR DAILY FOR INSULIN INJECTIONS. Blood-Glucose Meter [facility] Use to test blood glucose 3 times daily. Insulin Dependent E11.3299, E11.65, Z79.4 Cholecalciferol, Vitamin D3, 50 mcg (2,000 unit) cap Take 1 tablet by mouth once daily. 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 Vitamin D deficiency 01/05/2017 PAST SURGICAL HISTORY PAST SURGICAL HISTORY Procedure Laterality Date D&C, DIAG AND/OR THERAPEUTIC x3 EXTENSIVE HAND SURGERY Dupuytren contracture TONSILLECTOMY HX Review of systems: Patient notes no weight gain, fever, weakness, change in balance or sensation, visual problems, hearing changes, dizziness, trouble swallowing, nasal difficulties, chest pain, foot or leg problems, skin lesions, abdominal pain, diarrhea, constipation, urinary problems, incontinence, back pain, joint pains, anxiety, depression, menstrual difficulties, breast lesions/pain/mass. Remainder of review of systems was unremarkable. BP 126/60 Pulse 75 Resp 16 Ht 172.7 cm (5' 7.99) Wt 92.5 kg (204 lb) SpO2 100% BMI 31.03 kg/m Healthy-appearing obese (BMI > 30) female in no distress. Weight down 21 pounds since 04/2024. Height stable. Blood pressure normal, pulse regular. Thinning hair over the vertex. No thyromegaly. Breathing unlabored. Heart regular rate and rhythm. Has bilateral leg ulcers with wound vacs in place, did not remove. A1C today via Afinion was 7.4%. Latest Reference Range & Units 10/01/24 20:29 Sodium 136 - 144 mmol/L 136 Potassium 3.7 - 5.1 mmol/L 4.3 Chloride 98 - 107 mmol/L 100 CO2 22 - 30 mmol/L 26 BUN 7 - 21 mg/dL 32 (H) Creatinine 0.58 - 0.96 mg/dL 0.79 Glucose 74 - 99 mg/dL 165 (H) Protein, Total 6.3 - 8.0 g/dL 7.8 Calcium 8.5 - 10.2 mg/dL 9.7 Albumin 3.9 - 4.9 g/dL 3.3 (L) Bilirubin, Total 0.2 - 1.3 mg/dL 0.2 Alkaline Phosphatase 34 - 123 U/L 217 (H) ALT 7 - 38 U/L 16 AST 13 - 35 U/L 27 Anion Gap 8 - 15 mmol/L 10 eGFR >=60 mL/min/1.73m 84 (H): Data is abnormally high (L): Data is abnormally low Latest Reference Range & Units 01/11/24 14:19 03/13/24 15:00 Hemoglobin A1C 4.3 - 5.6 % 9.8 (H) (H): Data is abnormally high (L): Data is abnormally low IMPRESSION: Type 2 diabetes mellitus, insulin-requiring, with proliferative retinopathy - improved control and weight Hypertension - good BP control Hyperlipidemia - continue atorvastatin Obesity - urged continued weight loss efforts Pernicious anemia - continue B12 injections monthly PLAN: Continue metformin and Jardiance, sliding scale Check fasting lipid panel and urine microalbumin/creatinine ratio Will call with results See us again in 6 months. Continue close follow-up with podiatry Giovanni Cerrato MD, FACP I spent a total of 30 minutes on the date of service which included preparing to see the patient, [id number] patient care, completing clinical documentation, performing a medically appropriate examination, counseling and educating the patient/family/caregiver and ordering medications, tests, or procedures. documented in this encounter [facility] 10-16-2024 Note [facility] 10-16-2024 History of Presen t illness Narrative Date of Visit: 10/13/2024 Problem list reviewed. CHIEF COMPLAINT: check B/L lower leg wounds and NEW LEFT lower leg wounds and NEW RIGHT achilles rupture DM II A1c 8.3 (10/07/23) DLS 02/08/24 ADM 08/17/24 HISTORY OF PRESENT ILLNESS: Patient presents as follow up from hospital. She was admitted 08/17/24 and was DC to SNF where she is still at. She was DC on cipro and flagyl which she finished taking. Prior to admission she was following with my colleague Dr Reyes but requests to see me moving forward. She is at [facility]. She relates they have a wound doctor coming who is seeing her twice a week and doing ultrasounic wound debridement but can only do 2 wounds due to insurance. They are using collagen products. She relates dressings are being changed 3 times a week. She relates they decided to stop the wound vac. She relates she noticed a lot of blood to the right achilles area today and thinks she may have hit it. She states the wound doctor thinks the achilles wounds need cleaned up and wounds are doing better overall. Patient is taking protein drinks on own. She relates the facility isn't good about helping her dietary needs. She states pain is a 2/10. She relates she can't feel feet well and gets numbness. Referred by aircraft hydraulic equipment mechanic, Dr. Dasilva. Patient is DM and sees aircraft hydraulic equipment mechanic Denies N/V/F/C/D/SOB/CP/LP. PCN allergy Hx RT 3rd perc flexor tenotomy (07/26/23) HX R great toe amputation 06/18/23, excision tibial and fibular sesamoid, bone biopsy first met head. Right 2nd toe amputation and hallux I&D 10/28/22. Hx s/p RT toe amp 3,4,5 (DOS 10/14/23) DME DM inserts 08/24/23 rx circade wraps 08/14/22 CURRENT MEDICATIONS: oxyCODONE HCl Oral Tablet 5 MG (07/05/2024) Take 1 tablet every 12 hours as needed for 7 day(s) Percocet Oral Tablet 5-325 MG (07/20/2024) Take 1 tablet every 12 hours as needed for 7 day(s) oxyCODONE-Acetaminophen Oral Tablet 5-325 MG (10/28/2022) Ketorolac Tromethamine Ophthalmic Solution 0.5 % (04/26/2023) Accu-Chek Jose Plus In Vitro Strip (09/23/2022) Atorvastatin Calcium Oral Tablet 80 MG (06/13/2023) miSOPROStol Oral Tablet 200 MCG (06/15/2023) TAKE 2 TABLETS BY MOUTH THE DAY PRIOR TO PROCEDURE AT BEDTIME WITH FOOD Fluticasone Propionate Nasal Suspension 50 MCG/ACT (12/15/2022) USE 2 SPRAYS IN EACH NOSTRIL DAILY X1 WEEK,THEN 1 SPRAY IN EACH NOSTRIL DAILY THEREAFTER NEEDED Nitrofurantoin Monohyd Macro Oral Capsule 100 MG (02/08/2023) Fluconazole Oral Tablet 200 MG (03/20/2024) TAKE 1 TABLET EVERY DAY FOR 21 DAYS Bactrim DS Oral Tablet 800-160 MG (06/24/2023) Take 1 tablet twice a day for 10 day(s) Ofloxacin Ophthalmic Solution 0.3 % (03/30/2023) diazePAM Oral Tablet 10 MG (02/19/2022) TAKE 1 TABLET 60 MIN BEFORE TEST Atorvastatin Calcium Oral Tablet 40 MG (11/18/2022) FLUoxetine HCl Oral Capsule 40 MG (01/26/2022) Enalapril Maleate Oral Tablet 10 MG (01/26/2022) TAKE 1 TABLET BY MOUTH EVERY DAY Erythromycin Ophthalmic Ointment 5 MG/GM (02/09/2022) APPLY 1 A SMALL AMOUNT LEFT EYE 4 TIMES A DAY Atorvastatin Calcium Oral Tablet 20 MG (01/26/2022) TAKE 1 TABLET BY MOUTH EVERY DAY Spironolactone Oral Tablet 25 MG (06/15/2023) TAKE 0.5 TABLETS BY MOUTH ONCE DAILY. Jardiance Oral Tablet 25 MG (06/14/2023) TAKE 1 TABLET BY MOUTH EVERY DAY WITH BREAKFAST Furosemide Oral Tablet 40 MG (11/18/2022) HumuLIN R U-500 KwikPen Subcutaneous Solution Pen-injector 500 UNIT/ML (06/14/2023) INJECT 40 UNITS SUBCUTANEOUSLY AT BREAKFAST, 100 UNITS AT LUNCH, 80 UNITS AT SUPPER. metFORMIN HCl Oral Tablet 1000 MG (11/23/2022) TAKE 1 TABLET BY MOUTH TWICE DAILY WITH MEALS. E11.3599 ALLERGIES: Amoxicillin Unknown Band-[place]id [place] Surg Dressing Other Bandaging Tape Other PAST MEDICAL HISTORY: Podiatry History remarkable for Foot Numbness, Fungal Nails, Leg or Foot Ulcers. The patient has a past medical history of Arthritis, Depression, DM-Medication Dependent, Poor Circulation. Neuropathy High Cholesterol SURGICAL HISTORY: Hand Tonsils HOSPITALIZATIONS: None Noted SOCIAL HISTORY: Smoking Status: Never smoker; Last Reviewed: 12/08/2023 Alcohol use: social drinker No drug use Social History Reviewed (01/16/2021 11:20:18 AM EST) FAMILY HISTORY: There is a family history of Denial of any knowledge of significant family history. Denial of any knowledge of significant family history Family History Reviewed (01/16/2021 11:20:19 AM EST) REVIEW OF SYSTEMS: Psychologic: Admits to No psych symptoms. Review of systems otherwise negative PHYSICAL EXAMINATION: Vital Signs: Weight 235 lbs; Height 5 ft 8 in; BMI 35.7 10/12/2024 1:37 PM (EST) Temperature 98.6 F; Pulse Rate 100 bpm; Blood Pressure 120 / 80 mm/Hg Vascular Exam: DP pulses of the RIGHT and LEFT foot are +1/4 PT pulses of the RIGHT and LEFT foot are +1/4 CFT is within normal limits, less than 3s to all digits, both feet. Skin temperature from proximal to distal is warm to warm, both feet. BL LE edema, +1 pitting Dermatologic Exam: LEFT hallux wound measures 1x0.9cm with overlying eschar minimal surrounding callus, no surrounding edema and erythema, no purulence expressed, no probe to bone, no malodor, moderate serosanginous drainage. Into level of SUBCUTANEOUS layer. LEFT lateral lower leg wound predebridement measures 8x2.4x0.1cm and post debridement measures 8.2x2.5x0.2cm with 60:40 granular fibrotic base, surrounding callus, no erythema, no purulence, no probe to bone, no malodor, moderate serosanguinous drainage. Into level of SUBCUTANEOUS TISSUE, partial thickness LEFT posterior Achilles lower leg wound predebridement measures 9.9x3.8x1.2cm and post debridement measures 10x4x1.5cm with 60:40 granular fibrotic base, surrounding slough, no surrounding edema and erythema, no purulence expressed, no probe to bone-exposed achilles tendon with complete RUPTURE, mild malodor, moderate serosanginous drainage. Into level of TENDON. LEFT dorsal lateral foot cluster wound predebridement measures 3.8x1.3x0.5cm and post debridement measures 4x1.5x0.6cm with 70:30 granular fibrotic base, no surrounding callus, no surrounding edema and erythema, no purulence expressed, no probe to bone-5th MPJ exposed, no malodor, moderate serosanginous drainage. Into level of FASCIA/CAPSULE. LEFT anterior lower leg wound predebridement measures 0.9x1.2x0.1cm and post debridement measures 1.0x1.4x0.1cm with 60:40 granular fibrotic base, surrounding slough, no erythema, no purulence, no probe to bone, no malodor, moderate serosanguinous drainage. Into level of SUBCUTANEOUS TISSUE, partial thickness LEFT medial ankle wound predebridement measures 1.8x1.8x0.1cm and post debridement measures 1.9x2.0x0.2cm with 50:50 granular fibrotic base, minimal surrounding slough, no surrounding edema and erythema, no purulence expressed, no probe to bone, no malodor, moderate serosanginous drainage. Into level of FASCIA RIGHT posterior Achilles lower leg wound predebridement measures 9x4.8x1.6cm and post debridement measures 9.1x5.0x1.8cm with 60:40 granular fibrotic base, surrounding slough, no surrounding edema and erythema, no purulence expressed, no probe to bone-Exposed achilles tendon posteriorly with fraying and complete RUPTURE, no malodor, moderate serosanginous drainage. Into level of TENDON. RIGHT anterior lateral lower leg cluster wound predebridement measures 3.3x2.4x0.1cm and post debridement measures 3.5x2.5x0.1cm with 60:40 granular fibrotic base, no surrounding callus, no surrounding edema and erythema, no purulence expressed, no probe to bone, no malodor, moderate serosanginous drainage. Into level of SUBCUTANEOUS layer. LEFT foot 2nd toe tuft hyperkeratotic tissue Nails 2-5 left are thickened, elongated and discolored with subungual debris. The nails are greater than .3mm in thickness. The discoloration is yellowish in color. Innerspaces 1-4 LT are clean dry and intact. Skin texture and turgor are decreased. absent or decreased hair growth bilateral. chronic lower leg red hyperpigmentation Neurologic Exam: Comments/Other Findings: Vibratory sensations decreased LT, Protective sensations absent LT tested with 5.07 monofilament, and light, sharp, and temperature sensations intact LT. Normal Babinski test noted bl foot after testing Orthopedic Exam: Additional Orthopedic Findings: RIGHT foot toe amputations 1,2,3,4,5 LEFT 2nd hammertoe contracture semi- rigid BL foot with absent plantar flexion 0/5 muscle strength with palpable rupture to achilles tendon DIAGNOSIS: Type II diabetes mellitus with neurological manifestations PVD (peripheral vascular disease) Amputated toe of right foot Personal history of diabetic foot ulcer Callus Onychomycosis Venous ulcer of left lower extremity without varicose veins Ulcer of left lower extremity, limited to breakdown of skin Venous ulcer of right lower extremity without varicose veins Ulcer of right lower extremity, limited to breakdown of skin 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 Diabetic foot ulcer Diabetic leg ulcer Achilles rupture, left 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 Achilles rupture, right Ulcer of left foot with fat layer exposed Skin ulcer of left great toe, limited to breakdown of skin Malnutrition PLAN AND TREATMENT: ASSESMENT & PLAN BL Foot and Ankle and Lower extremity Exam and Evaluation carried out with a treatment plan reviewed with the patient and findings discussed with patient including alternatives, benefits, complications and risks TESTS / IMAGING / X-RAY EXAM PREVIOUS right foot XR: There was noted to be normal joint spaces unless noted. No fractures or dislocations noted. No soft tissue emphysema noted. No osteopenia or sclerosis noted. tibial and fibular sesamoid excised, there is small calcified piece of fibular sesamoid bone noted to plantar lateral 1st met. RT foot amp at MTPJ 1,2,3,4,5. no lytic lesions. no soft tissue gas noted. 08/17/24 Xray left foot: No radiographic presence of OM 08/17/24 Xray tib/fib left leg: No radiographic presence of OM 08/17/24 Xray tib/fib right leg: No radiographic presence of OM 08/17/24 CRP: 13.6 and 08/18/24 ESR: 97 04/05/24 PVR b/l leg: Left MANJEET 0.9 and Right 0.95 08/18/24 Left leg wound culture: Few pseudomonas aeruginosa FINAL 08/18/24 MRI BL LE: 1. No drainable soft tissue abscess or evidence for osteomyelitis 2. Diffuse edema/cellulitis and fatty muscle atrophy with nonspecific myositis. 10/01/24 albumin: 3.3 LEFT hallux ulcer stable. NEW LEFT lateral lower leg ulcer stable. LEFT posterior achilles lower leg ulcer stable. LEFT dorsal lateral foot cluster ulcer stable. NEW LEFT anterior lower leg ulcer stable. LEFT medial ankle ulcer stable. RIGHT posterior achilles lower leg ulcer stable. RIGHT anterior lateral lower leg cluster ulcer stable. LEFT hallux ulcer NOT DEBRIDED LEFT lateral lower leg ulcer, LEFT anterior lower leg ulcer, RIGHT anterior lateral lower leg cluster ulcer treated with sharp excisional debridement carried out of the wound with non selective sharp excisional debridement past the dermis into SUBCUTANEOUS level with use of curette and 15 scalpel blade. Devitalized tissue removed. We then flushed out the wound with wound wash sterile saline. Area numbed with lidocaine gel if sensate prior. LEFT posterior achilles lower leg ulcer, LEFT dorsal lateral foot cluster ulcer, LEFT medial ankle ulcer, RIGHT posterior achillles lower leg ulcer treated with sharp excisional debridement carried out of the wound with non selective sharp excisional debridement past the dermis into FASCIA and FAT level with use of curette and 15 scalpel blade. Devitalized tissue removed and we then flushed out the wound with wound wash sterile saline. Area numbed with lidocaine gel if sensate prior. Discussed importance in offloading, proper nutrition including blood sugar control and getting enough protein and vitamins, infection prevention, and proper wound care in wound healing. Also discussed detrimental impact of smoking on healing. Reviewed proper wound care with patient. To not soak wound but to clean appropriately. To watch for signs of infection both local and systemic. These were reviewed with the patient. If seen to contact office or go to ED. To continue wound care consisting of washing the wound with soap and water or vashe solution soaked gauze for 3-5 minutes. Then to apply dressing consisting of dakins wet to dry to BL achilles wounds and left dorsolateral foot with intention of facility applying adaptic and wound vac to these areas with left foot bridge between the 2 wounds. To rest of wounds apply jose a, adaptic, 4x4, kerlix and light olegario. To change 3 times a week. Facility to start BL wound vacs. Discussed need to fill in the deficit from BL achilles rupture as well as to get coverage over achilles. Discussed wound vac is best option. Discussed with her current labs she doesn't qualify for grafting at this time. Can recheck for improvement for possible future grafting. Discussed the bleeding noted to the right achillles was from her rupturing the tendon. Discussed with both achilles ruptured she will struggle with push off in gait. Discussed achilles likely ruptured do to chronic ulceration with infections and drying out of tendon. Discussed if we can get her healed she will need AFO to aid in walking. Discussed she is at high risk for BKA BL. Discussed she can weight bear as tolerated. Discussed need assist for activities as she is a high fall risk. Discussed limiting motion at ankle joint to stop tugging on wounds to aid in healing. Discussed need to balance this with maintaining muscle Discussed need for better nutrition Patient educated on the importance of proper nutrition to help optimize healing. Discussed eating three balanced meals daily and meal preparation. Discussed importance of high protein intake. Discussed supplementation drinks such as ensure, glucerna, nepro, tamiko. Discussed need for blood sugar control, proper vitamin intake whether dietary or through supplementation. Discussed Vitamin C, Multi Vitamin, zinc, and magnesium supplementation. Discussed may need to watch sodium intake as well especially if patient experiences swelling. Offered nutrition referral. Patient taking protein supplement drink Discussed I have never heard of insurance limiting ability to treat multiple wounds. Discussed need to pick one provider to be managing wounds. Patient would like to restart care at [facility] with skilled nursing just assisting with dressing changes. Future plan to take to OR for possible grafting if can fill in some depth with wound vac vs office grafting Follow up in 2 weeks for check with continued monitoring at SNF and see if eating better Type II diabetes mellitus with neurological manifestations 250.60 E11.49 Diagnosis Notes Drag & Drop to change diagnosis order PVD (peripheral vascular disease) 443.9 I73.9 Diagnosis Notes Drag & Drop to change diagnosis order Amputated toe of right foot 895.0 S98.131A Diagnosis Notes Drag & Drop to change diagnosis order Personal history of diabetic foot ulcer V12.29 Z86.31 Diagnosis Notes Drag & Drop to change diagnosis order Callus 700 L84 Diagnosis Notes Drag & Drop to change diagnosis order Onychomycosis 110.1 B35.1 Diagnosis Notes Drag & Drop to change diagnosis order Venous ulcer of left lower extremity without varicose veins 459.81 I87.2 Diagnosis Notes Drag & Drop to change diagnosis order Ulcer of left lower extremity, limited to breakdown of skin 707.10 L97.921 Diagnosis Notes Drag & Drop to change diagnosis order Venous ulcer of right lower extremity without varicose veins 459.81 I87.2 Diagnosis Notes Drag & Drop to change diagnosis order Ulcer of right lower extremity, limited to breakdown of skin 707.10 L97.911 Diagnosis Notes Drag & Drop to change diagnosis order 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 707.13 L97.323 Diagnosis Notes Drag & Drop to change diagnosis order Diabetic foot ulcer 250.80 E11.621 Diagnosis Notes Drag & Drop to change diagnosis order Diabetic leg ulcer 250.80 E11.622 Diagnosis Notes Drag & Drop to change diagnosis order Achilles rupture, left 845.09 S86.012A Diagnosis Notes Drag & Drop to change diagnosis order 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 707.13 L97.312 Diagnosis Notes Drag & Drop to change diagnosis order Achilles rupture, right 845.09 S86.011A Diagnosis Notes Drag & Drop to change diagnosis order Ulcer of left foot with fat layer exposed 707.15 L97.522 Diagnosis Notes Drag & Drop to change diagnosis order Skin ulcer of left great toe, limited to breakdown of skin 707.15 L97.521 Diagnosis Notes Drag & Drop to change diagnosis order Malnutrition 263.9 E46 Nursing Documentation Pertinent Medical History: DM2, HTN, venous insufficiency, & heart failure Wound Etiology according to patient: wounds started February 2024 Pt had right great toe amputation June 18, 2023 Patient arrived via: Ambulatory with [facility]/Nursing Facility: N/A Consent captured for debridement per Hu Pickard DPM and good until April 2025 Anticoagulant Therapy: ASA 81mg ACTIVE CARE PER PROVIDER: Hu Pickard DPM Application Dates: Grafts are complete 01/07/2023 [facility] 01/15/2023 [facility] 01/21/2023 [facility] 01/27/2023 [facility] 02/04/2023 [facility] Wounds 1-35 previously closed 37 closed 38 closed 40 closed 44 closed WOUND ASSESSMENT: Refer to Provider's Wound Assessment Note VASCULAR ASSESSMENT BY PROVIDER: See provider wound assessment note CHF History: Yes as of February 2022, Dr. Sadler in Cardiology EDEMA: Right Foot: 1+ Right Calf: 2+ Left Foot: Brawny Left Calf: 2+ MEASUREMENTS: in CM Right Calf: 32.1 Right Ankle: 24.0 Left Calf: 32.0 Left Ankle: 24.9 Length: 43.0 WOUND PHOTOGRAPHY: Yes x 8, date taken 08/17/24 DEBRIDEMENT PROCEDURE BY PROVIDER: Anesthetic Used: 2% Lidocaine gel applied by Lucia Mendez RN Other procedure: N/A Specimen collected: N/A WOUND TREATMENT PER MD ORDER: Wounds cleansed by mechanical debridement to allow provider to visualize wound base Report called to [facility], Li RN spoke with Eva RUIZ. 07/05/24: Patient reports wosening heart failure; states she has a lot more swelling in the legs and has had trouble breathing when trying to lay in bed to sleep; weight today = 247lbs (up almost 25lbs since 2023). Message sent to Ayan Wallis CNP with heart failure clinic. Patient states she has been speaking to Ayan via telephone regarding weight gain. 07/26/24: Pt with increased pain, drainage, redness noted to bilateral lower legs. New wounds present on bilateral lower legs. Pt stated that she did not come to appointment last week with Dr. Reyes due to not feeling well, stated that her legs were giving her issues. Discussed with pt the importance of not waiting to be seen if her Dr. Reyes would like pt to go to the ER. LEFT LOWER LEG WOUNDS WOUND # 36 LOCATION: Left hallux nail bed (NEW 07/05/24 - L: 1.0 cm x W: 0.9 cm x D: scab Cleansed with: Vashe Applied to naya-wound skin:betadine Applied to wound bed: betadine Covered and secured with: WOUND # 41 - LOCATION: Left Medial Ankle (NEW 07/26/24 L: 1.9 cm x W: 2.0 cm x D: 0.2 WOUND # 46 LOCATION: Left Lateral Lower Leg (NEW 10/12/24)) L: 8.2 cm x W: 2.5 cm x D: 0.2 cm WOUND # 47 LOCATION: Left Anterior Lower Leg (NEW 10/12/24)) L: 1.0 cm x W: 1.4 cm x D: 0.1 cm Wounds 41, 46, 47 Cleansed with: Vashe Applied to naya-wound skin:skin prep Applied to wound bed: jose a, adaptic Covered and secured with: 4x4's, ABD pads, Kerlix, & Tape Secure with olegario wrap from behind the toes to 1 below the knee Lose to only secure the dressings - - - - - - - - - - - - - - - - - - - - - - - - - - - - - - - - - - - - - - - - - - - - - - - - - - - - - - - - - - - - - - - - - - - - - - - - WOUND VAC WOUNDS: Wounds 39, 42, 43 WOUND # 39 LOCATION: Right Achilles L: 9.1 cm x W: 5.0 cm x D: 1.8 cm - Tendon exposed 08/17/24 WOUND # 42 - LOCATION: Left Achilles (NEW 07/26/24) L: 10.0 cm x W: 4.0 cm x D: 1.5 cm - Tendon exposed WOUND # 43 - LOCATION: Left Dorsal / Lateral Foot -(NEW 07/26/24 L: 4.0 cm x W: 1.5 cm x D: 0.6 cm Cleansed with: Vashe Applied to naya-wound skin: skin prep Applied to wound bed: dakin's moistened gauze, drawtex Covered and secured with: 4x4's, ABD pads, Kerlix, & Tape Secure with olegario wrap from behind the toes to 1 below the knee Lose to only secure dressings - - - - - - - - - - - - - - - - - - - - - - - - - - - - - - - - - - - - - - - - - - - - - - - - - - - - - - - - - - - - - - - - - - - - - - - - RIGHT LOWER LEG WOUNDS WOUND # 45 - LOCATION: Right Anterior Lateral Lower Leg Cluster - (08/17/24 ) L: 6.5 cm x W: 2.5 cm x D: 0.1 cm Cleansed with: Vashe Applied to naya-wound skin:skin prep Applied to wound bed: jose a, adaptic Covered and secured with: 4x4's, ABD pads, Kerlix, & Tape Secure with olegario wrap from behind the toes to 1 below the knee COMPRESSION: NO COMPRESSION. Olegario wraps only to secure dressings SPECIAL NEEDS: Coordination of care - [facility] - [place] Emotional support N/A OR set-up N/A Yarn Examiner N/A Incontinence needs N/A DME company: ordered 03/01/24 [employer] wraps, Supplies ordered 06/07/2024 x 30 days with 2 refills DISCHARGED in stable condition to: Friend Angie PLAN/ORDERS: Follow-up in the Wound Center with Dr Pickard in 2 weeks Continue aggressive nutritional support to assist wound healing, focusing on increasing protein intake, keeping blood sugars stable/controlled Blood sugars must be kept below 150 for wound healing Patient is a High Fall Risk due - UP WITH ASSIST ONLY HAVE PATIENT ATTEMPT CHAIR YOGA EXERCISES - LIMITED ANKLE MOVEMENT WEIGHT BEARING TOLERATED OTHER EDUCATION: WOUND DETERIORATION WOUND VAC ACTIVITY LIMITED FALL RISK No bend of the ankle Education performed regarding lymphedema/edema: Elevation of extremity above the heart for 30 minutes three times daily and as needed Exercise such as writing the ABC's with your toes in the air, walking and/or calf pumps Wearing compression as ordered by provider Diet controlling of sodium as instructed by provider Use of medication to help control edema. UNIVERSAL PROTOCOL / SAFETY CHECKLIST Procedure to be Performed sharp debridement of Bilateral Lower Legs Sign In: 0945 A Moment of CARE was completed. Personnel directly involved with the procedure wore the appropriate PPE (Personal Protective Equipment). Patient/Surrogate Stated/Verified: PATIENT VERIFIED(optional for EMERGENT procedures): Patient name, Date of , Relevant allergies, and The intended procedure Time Out Communication: 8787 Intended patient and procedure match the source documents. Consent documented and matches the intended procedure. No relevant labs, photos, and/or imaging studies were applicable for review. Sign Out: 1018 SIGN OUT (optional for EMERGENT procedures): All instruments, equipment, possible retained foreign bodies accounted for. Current HBOT Status: Active or Complete - see screening below WOUND CENTER HYPERBARIC OXYGEN THERAPY SCREENING 1. Is the patient diabetic? (If No, skip to question 5) Yes 2. Does the patient have a lower extremity wound? Yes 3. Is there exposed/involved tendon or bone? NO 4. Has the wound been present for 30 days? Yes If Yes to ALL questions above, consult the Hyperbaric Center 5. Has the patient been diagnosed with osteomyelitis? No 6. Has the patient had a previous skin graft or flap at the wound? No 7. Has the patient had or been offered vascular intervention/evaluation? No 8. Does the patient have a wound at an amputation site? Yes 9. Has the patient had radiation therapy at the site of the problem? No If Yes to ANY of questions 5-9, consult the Hyperbaric Center documented in this encounter [facility] 10-13-2024 Instructions Bonnie Molina RN - 10/13/2024 9:57 AM EST WOUND CARE INSTRUCTIONS- Shade Brambila Wound location: Bilateral Lower Legs [facility] HOME: FAX: [phone] PLEASE ATTEMPT TO FEED THE PATIENT A DIABETIC DIET Attempt to take in 100 grams of protein every day 1. Wash your hands with soap and water before and after wound care. 2. Gather all supplies needed. 3. Take a clean 4x4 gauze and moisten with a few drops of Vashe (blue bottle) and allow to soak for 5-10 minutes, then remove and pat dry. Left Hallux: [place] with Betadine leaving open to air daily All wounds EXCEPT bilateral Achilles and Left Dorsal foot (proximal 5th toe) 4. Apply to the wound base: jose a 5. Cover with: adaptic 6. Secure dressing with: 4x4's, abd pads 7. Change your dressing: M-W-F and as needed to keep clean and dry 8. Secure with olegario wrap from behind the toes to 1 below the knee - OLEGARIO WRAPS ARE NOT FOR COMPRESSION - THEY ARE ONLY TO HELP KEEP DRESSINGS IN PLACE Bilateral Achilles and Left Dorsal/Lateral (Proximal to 5th toe) foot ONLY until wound vac is available 4. Apply to the wound base: dakins moistened gauze packed in to the wound bed 5. Cover with: drawtex, 4x4's, abd pads 6. Secure dressing with: conform or kerlix wrap. tape 7. Change your dressing: Daily and as needed to keep clean and dry 8. Secure with olegario wrap from behind the toes to 1 below the knee - OLEGARIO WRAPS ARE NOT FOR COMPRESSION - THEY ARE ONLY TO HELP KEEP DRESSINGS IN PLACE Usp to order Wound Vac Please apply a wound vac on both achilles and Left Dorsal/Lateral (Proximal to 5th toe) foot KCL Recommended Settings: 175 mmHg, continuous Intensity High Continuous suction Wound Vac: Skin prep to naya-wound Duoderm to naya-wound of all wounds Eaken seal around the wound edge of each wound Apply adaptic to the entire wound base all 3 wounds Black foam to wound bed - be sure to not over pack wound with foam Track pad to be placed avoiding all bony prominence Pad and protect skin from tubing at all times Change dressing 3 x weekly and as needed to keep clean and dry Apply a loose olegario wrap to secure dressings - Avoid sitting with legs in a dependent position or standing for long periods of time. - Attempt to lay flat and elevate your legs above the level of your heart 2-3 times daily, for 30 minutes at a time. - Be sure to continue walking and/or calf pumps and exercises to mimic writing the alphabet with your foot, as instructed Foot care Many people with diabetes lose the feeling in their feet (neuropathy). Therefore, they might not know they have an injury that can lead to serious problems, such as foot removal (amputation). By taking care of your feet, most serious problems can be prevented. If you have problems checking your own feet, have a family member or friend help you. Easy steps to protect your feet: Check your feet every day for: dry or cracked skin, cuts, open sores, blisters, redness, swelling, corns, calluses, or toenail problems. Use a mirror if necessary. Report any problems to your doctor. Keep your feet clean and dry, especially between the toes. If your feet are dry or cracked use a moisturizing lotion at least daily but never between the toes. See your judicial clerk every three months for foot and nail care. Don't go barefoot. Wear shoes or slippers at all times. Wear comfortable shoes that fit well. Check inside your shoes for foreign objects or rough spots before putting on shoes. Always wear socks. Avoid using anything hot, such as heating pads, hot water bottles, hot tubs, or bath water. Check the temperature of bath water with your elbow not your foot. Take your shoes and socks off at every office visit to remind your doctor to check your feet. Also, never tape a dressing directly to the skin on your legs or feet. Instead, use a self-adherent bandage to avoid injuring the skin on your lower extremities If calluses form they can cause wound ulcers to appear under the callus, must be seen by [employer] every three months to prevent. Maintain controlled blood sugar, if blood sugar is consistently above 200 this can delay wound healing and aggravate neuropathy. To give your wound the best chance to heal: - Eat three balanced meals daily focusing on the protein - Control your blood sugar. Keep blood sugar less than 200 - Complete your wound care instructions as ordered - Vitamin C 500 mg twice daily - Multiple Vitamin Daily - Drink a protein shake daily - Premiere Clear or Glucerna for Diabetic patients, Nepro for renal patients and premiere for non-renal and non-diabetic patients Report any of the following signs and symptoms of infection to the Wound Center at [phone] or go to the Emergency Department: Fever or chills Increased drainage Green or yellow drainage Foul odor Increased pain Hardness around the wound Redness, warmth or swelling of the surrounding tissue Color change to the wound Evenings / Weekends / Holidays If you call the wound center at the phone number provided above, please leave a detailed message that includes your full name, birthday, and phone number. We are seeing patients during the day, so we will return your call within a 24-48 hr period in the order your call was received. There is not an on-call provider assigned to the wound center. If you have an emergency that needs to be addressed, please go to an Urgent Care or Emergency Room. Thank you for your cooperation and understanding. If you are feeling ill, please call to reschedule your appointment. If you believe your illness to be wound related, call and leave a message using the directions above describing your symptoms. If you cannot wait 24-48 hrs for a callback, please get evaluated in the nearest emergency department. PLAN/ORDERS: Follow-up in the Wound Center with Dr Pickard in 2 weeks Continue aggressive nutritional support to assist wound healing, focusing on increasing protein intake, keeping blood sugars stable/controlled Blood sugars must be kept below 150 for wound healing Patient is a High Fall Risk due - UP WITH ASSIST ONLY HAVE PATIENT ATTEMPT CHAIR YOGA EXERCISES - LIMITED ANKLE MOVEMENT WEIGHT BEARING TOLERATED Hu Pickard DPM/celina/rivka documented in this encounter [facility] 10-13-2024 Note [facility] 10-12-2024 Telephone encounter Note Your fax has been successfully sent to office notes at [phone]. 10/12/2024 9:55:46 AM Origin Record Created by CHRISTY 10/12/2024 9:55:51 AM Conversion [[id number]] Type: application/postscript G3 to TIFF #1: Success [image/g3] (46ms) GhostScript TIFF #1: Success [image/tiff] (312ms) ([id number]) [employer] 10-12-2024 Miscellaneous Notes Your fax has been successfully sent to office notes at [phone]. 10/12/2024 9:55:46 AM Origin Record Created by CHRISTY 10/12/2024 9:55:51 AM Conversion [[id number]] Type: application/postscript G3 to TIFF #1: Success [image/g3] (46ms) GhostScript TIFF #1: Success [image/tiff] (312ms) ([id number]) Name of Caller: Naresh Contact Ext. [phone] Reason for Appointment: Caller states patient is now at the [facility]. They are needing the last OV notes and any testing she may have done that day when he saw her on 10.09.24. FAX: [phone] Attn: Naresh If first fax does not go through use this secondary line. ) Please advise. Office Name: Ortho/Sport Med documented in this encounter [facility] 10-12-2024 Telephone encounter Note Name of Caller: Naresh Contact Ext. [phone] Reason for Appointment: Caller states patient is now at the [facility]. They are needing the last OV notes and any testing she may have done that day when he saw her on 10.09.24. FAX: [phone] Attn: Naresh If first fax does not go through use this secondary line. ) Please advise. Office Name: Ortho/Sport Med [facility] 10-09-2024 History of Presen t illness Narrative Images from the original note were not included. [facility] [address] [facility] [id number] Dept: [phone] Dept Shade Brambila 1960 [id number] 10/09/2024 HISTORY OF PRESENT ILLNESS: Shade is a 64 y.o. female here today for evaluation of her bilateral leg. Patient presents today with her legal power of erisa attorney Shade states the problem has been present for several years. She reports that she has had episodes of wounds to bilateral posterior ankles which have previously healed. Last year she noted that they reopened and has been receiving care from podiatry and wound care for this. She was able to ambulate a short distance approximately 2 weeks ago using a walker. Otherwise she is largely wheelchair-bound and stands to pivot. She reports that she had a wound VAC that was removed on 10/01/2024. Due to concern for Achilles tendon rupture she was sent to the emergency department for wound check. She comes to the orthopedic foot and ankle clinic for continued evaluation. She reports neuropathy in bilateral legs up to the knees. She does have a history of angiogram on 08/01/2024 at outside hospital. Please see operative summary below for further details. Shade has tried or has been treated with the following: walking aids (crutches, cane, a walker,knee scooter,wheelchair, etc) and surgery. _ Review of Systems Surgical Risk Factors: Allergies to Metals or Latex: NO Have you been treated for a blood clot: NO Have you had a history of bleeding disorder: NO Have you had a history of Anesthetic problems: NO Do you have tendency to bruise easily: NO Do you experience prolonged or excessive bleeding from cuts or after surgery: NO General/Constitutional: General: no Cancer: NO Acute/Chronic Infections: NO HEENT/Neck: Problems with theThroat: NO Problems with the Eyes: NO Problems with the Ears: NO Problems with the Nose and Sinuses: NO Endocrine: Problems with Diabetes: yes Problems with Thyroid Disorder: NO Thorax: Problems with the Heart: NO Problems with the Lung: no Cardiovascular: Problems with Circulation: NO Problems with High Blood pressure: yes Gastrointestinal: Problems with Ulcers: NO Problems with the Liver: no Problems with Bowel Habits: NO Genitourinary: Problems with the Genitals: NO Urinary problems: NO Kidney disease or stones: NO Skin: Any general problems: NO Neurologic: Dizziness, blurred vision, headaches, problems with balance : NO Seizures or Stroke: NO Psychiatric: Emotional or Psychological disorders: NO Depression or Anxiety: no PAST MEDICAL HISTORY: Past Medical History: Diagnosis Date Anxiety Depression Diabetes mellitus (HCC) Hyperlipidemia Hypertension No Known Allergies PHYSICAL EXAM: There were no vitals taken for this visit. This is an age appropriate appearing female who is alert and oriented x 3. The patient appears well nourished. Psychiatric: The patient is able to verbalize normally and seems to have a good understanding of her situation. both lower extremity examination Lymphatic System: No areas of swelling are seen Vascular: Dorsalis pedis pulse: Bilateral feet are warm and dry, unable to palpate pulses. Capillary refill is less than 3 seconds Skin/nails: Warm and dry with wounds as seen in the attached images below. There are 2 very large wounds to posterior aspect of bilateral heels. On the left side there is evidence of Achilles rupture. Bilateral heel wounds are expressing purulent drainage and appear necrotic. There is also evidence of diffuse other small wounds to bilateral lower extremities with associated skin change and rubor Hair growth present on foot and toes TMA present on the right side, appears well-healed Neurologic: Sensation intact to light touch throughout the foot and the ankle Musculoskeletal: The calf is nontender to palpation. ROM: Decreased ROM of the foot and ankle Muscle strength testing BL: Anterior tibialis: R 4/5 L 4/5 Posterior tibialis: R 4/5 L 4/5 Peroneus brevis: R 4/5 L 4/5 Peroneus longus: R 4/5 L 4/5 Gastrocsoleus: R 4/5 L 0/5 Tenderness: Minimal tenderness to palpation about the posterior aspects of bilateral heels. Gait and Station: Shade is able to unable with a normal gait per report, not evaluated at this visit Shade reports that she is unable to stand without assistance, not evaluated at this visit RADIOGRAPHIC INTERPRETATION: No x-rays were available for review REVIEW OF RELATED PREVIOUS DOCUMENTATION: Extensive review of prior documentation was completed including review of urgent care visit on 10/01/[address] Nathanael Matos DO at [facility]. There is also extensive review of prior hospitalizations beginning 07/26/2024 and 08/17/2024 at [facility], which included review of radiologic and potation's, physician notes, lab values, and surgical procedures LABORATORY RESULT INTERPRETATION: Previous angiogram was reviewed. PROCEDURE INDICATION: 64 year old female with bilateral non-healing venous stasis ulcers L>R presents for left leg angiogram with possible intervention. INTERVENTIONAL PROCEDURE: 1. Ultrasound-guided right common femoral access 2. Aorta and pelvic angiogram 3. left lower extremity angiogram Anesthesia: Procedural Sedation PROCEDURAL DETAILS: Informed consent was reviewed with the patient and surgical team. The patient was then brought back to the production laborer room and laid supine on the procedure table. After time, in, Moderate sedation was administered. Bilateral groins were prepped and draped in the usual sterile fashion. The right common femoral artery was interrogated with the ultrasound and found to be patent. Utilizing local anesthesia, ultrasound guidance, and micropuncture system, access was obtained in the right common femoral artery and the tip of the needle within the vessel was documented. A 5-Serbian sheath was exchanged over a glidewire into the CLEANING PROFESSIONAL and an omniflush catheter was advanced into the aorta for aortogram and pelvic angiogram. This showed widely patent aorta and bilateral iliac arteries without stenosis. Up and over access was obtained and with the catheter parked in the contralateral external iliac artery, angiography with runoff was performed with selected DSA runs done stepwise to the foot. This showed widely patent left common femoral, profunda, and superficial femoral arteries without evidence of stenosis. The popliteal is widely patent without stenosis. The TP trunk is widely patent without stenosis and there is single vessel runoff to the left foot via posterior tibial artery which fill plantar arch into the foot. The anterior tibial occludes proximally. The peroneal occludes at mid segment and reconstitutes distally.. The wire and catheter were removed. The Mynx closure device was used and supplementary pressure held for hemostasis. The patient tolerated the procedure well. Patient has inline flow to left foot via posterior tibial artery and has adequate perfusion for wound healing Pre-Op/Pre-Procedure Diagnosis: venous stasis wounds Post-Op/Post-Procedure Diagnosis: Same DIAGNOSIS: Diagnosis Plan 1. Leg wound, left, initial encounter 2. Leg wound, right, initial encounter MEDICAL DECISION MAKING: I had a discussion with Shade to make sure she has a good understanding of the diagnoses/issues that I think are present today and understands the plan moving forward. I had a long discussion with Shade and her power of erisa attorney regarding her right and left open leg wounds. I explained that in my opinion these wounds will not heal and her choices include living with open wounds and potentially developing infections versus having amputations. I explained that she needs to make it quite clear to her power of erisa attorney what her wishes would be if she became infected and could not make her own decisions. I explained that there are individuals I would prefer to pass that to have amputations and others that would choose amputation as a lifesaving procedure over dying. I explained that they should have this conversation in the event that she were unable to make her own decisions and her power of erisa attorney would know her wishes that. I also explained that the Achilles tendon rupture on the left is not repairable given the open wound. I explained that repairing the Achilles would do nothing in terms of her long-term outcome and would never heal given the open wound. I explained that I do not think that there are any coverage options that are available given the poor tissue quality surrounding the open wound sites. From my standpoint I think she needs to consider bilateral below-knee amputations with the understanding that she still may not heal even a below-knee amputation given the condition of the surrounding skin and could end up with bilateral above-knee amputations. We spent quite a bit of time talking about what this means in terms of the rest of her life living in a wheelchair. I explained that she would need an apartment/house with total wheelchair accessibility. I explained that I do not think she would be a candidate for prostheses given her congestive heart failure and the energy needed to walk even a very short distance with bilateral amputations. If Shade chooses some point to proceed with surgical intervention she and her power of erisa attorney were instructed to call the office and we will be happy to get her on the schedule. I also explained that I would not perform both amputation at the same time but would like to perform 1 early in the week and the second later in the week. The risks of the proposed above procedure were discussed including but not limited to the risks of reactions to medications given for surgery, the risk of blood loss, continued or worsening of the infection, damage to normal structures that can lead to manager long term care problems of pain and/or dysfunction, the potential for non-healing wounds/incisions that may require further operative intervention in the future including more a proximal amputation. In addition potentially life threatening complications (DVT, PE, MD, stroke,and even ) at the time of surgery and after surgery were discussed. Follow up for PRN and will call to schedule surgery. Electronically signed by Hayder Cooley MD [facility] Department of Orthopedic surgery 10/09/2024 11:53 AM Voice recognition was used for portions of this note and although it was reviewed prior to signing some incorrect words or phrases could be present. documented in this encounter [facility] 10-04-2024 Note HNO ID: [id number] Author: JULIET STANLEY MA Service: ? Author Type: Linen Tech Type: Progress Notes Filed: 10/19/2024 10:12 Note Text: Received visit elmer from SABIA. Placed in provider's inbox for review. [facility] 10-04-2024 History of Presen t illness Narrative Received visit elmer from SABIA. Placed in provider's inbox for review. documented in this encounter [facility] 10-03-2024 Telephone encounter Note Error [facility] 10-03-2024 Miscellaneous Notes Error documented in this encounter [facility] 09-26-2024 Note Patient Outreach (FA BILLY) SHADE BRAMBILA ([id number]) 1960 F Date Time Provider Department 09/26/24 ELDON GILL During your visit today, we recorded the following information about you: Allergies As of Date: 09/26/2024 Noted Allergy Reaction AMOXICILLIN 11/26/2022 16 - Unknown Comments: Patient does not remember reaction SILICONE 06/22/2024 2 - Rash 9 - Itching Comments: Dressing with silicone border caused inflammation where the bandage was placed CODEINE 09/26/2022 5 - Intolerance Comments: Patient states Makes her Hyper MORPHINE 08/17/2023 5 - Intolerance Comments: Difficulty waking up / groggy Date Reviewed: 08/24/2024 Reviewed by: Danita Tai RN - Fully Assessed Visit Diagnosis:Encounter for screening mammogram for breast cancer [Z12.31] Order(s):[facility] SCREENING W GUDELIA [[id number]] Order #: [id number] FUTURE Prescriptions as of 10/27/2024 - sodium phosphate,mono-dibasic (ENEMA RECTAL) by RECTAL route as needed (constipation). may be given daily, if needed - ferrous sulfate 325 mg (65 mg iron) tablet Take 325 mg by mouth once daily. - bisacodyl (DULCOLAX) 10 mg supp 10 mg by RECTAL route once daily as needed for constipation. - magnesium hydroxide (MOM) 400 mg/5 mL suspension Take 30 mL by mouth once daily as needed for constipation. - senna-docusate (SENEXON-S) 8.6-50 mg per tablet Take 1 tablet by mouth as needed for constipation. - naloxone (NARCAN) 1 mg/mL for intranasal administration 1 mg by INTRANASAL route as needed for known or suspected opioid overdose. Once for opioid overdose may repeat every 2-3 min - insulin lispro 100 unit/mL injection Sliding scale- Blood sugar 111-150 Give 0 units 151-200 Give 1 unit 201-250 Give 2 units 251-300 Give 3 units 301-350 Give 4 units 351-400 Give 5 units Greater than 400 Give 5 units and Notify Provider - fluticasone (FLONASE) 50 mcg/actuation nasal spray Use 2 Sprays in each nostril once daily. - ondansetron (ZOFRAN) 4 mg tablet Take 4 mg by mouth every 8 hours as needed for nausea/vomiting. - traMADol (ULTRAM) 50 mg tablet Take 50 mg by mouth every 6 hours as needed for pain. - acetaminophen (TYLENOL) 325 mg tablet Take 2 tablets by mouth every 6 hours as needed for fever (specify temp.) or pain (temp >100.1F). - senna (SENOKOT) 8.6 mg tab Take 1 tablet by mouth two times a day. - empagliflozin (JARDIANCE) 25 mg tablet TAKE 1 TABLET BY MOUTH EVERY DAY WITH BREAKFAST - ACCU-CHEK JOSE PLUS TEST STRP test strip USE TO TEST BLOOD GLUCOSE 3 TIMES DAILY - enalapril (VASOTEC) 20 mg tablet Take 0.5 tablets by mouth two times a day. - atorvastatin (LIPITOR) 80 mg tablet take 1 tablet by mouth every day - furosemide (LASIX) 20 mg tablet Take 20 mg by mouth once daily. 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 - aspirin, enteric coated (ASPIRIN, ENTERIC COATED) 81 mg EC tablet Take 81 mg by mouth once daily. - cyanocobalamin, vitamin B-12, 1,000 mcg/mL kit 1,000 mcg by INJECTION(UNSPECIFIED PARENTERAL ROUTES) route once every month. - Blood Pressure Monitor Please monitor blood pressure 1-2 hours after taking morning medications. - Zinc 50 mg tab Take 50 mg by mouth once daily. - multivit,thx,calcium,iron,mins (MULTIVITAMIN AND MINERAL ORAL) Take 1 tablet by mouth once daily. - FLUoxetine (PROZAC) 40 mg capsule Take by mouth q 24 HR. - lancets (ONE TOUCH DELICA) 33 gauge USE TO BLOOD GLUCOSE 3 TIMES DAILY. INSULIN DEPENDENT E11.3299, E11.65, Z79.4 - insulin needles, DISPOSABLE, (BD INSULIN PEN NEEDLE UF) 31 gauge x 5/16 FOUR DAILY FOR INSULIN INJECTIONS. - Blood-Glucose Meter [facility] Use to test blood glucose 3 times daily. Insulin Dependent E11.3299, E11.65, Z79.4 - Cholecalciferol, Vitamin D3, 50 mcg (2,000 unit) cap Take 1 tablet by mouth once daily. Facility-Administered Medications as of 10/27/2024 - cyanocobalamin 1,000 mcg injection Problem List As Of Date 09/26/2024 Noted Resolved Type 2 diabetes mellitus with proliferative ret*08/08/1999 Mixed hyperlipidemia [E78.2] 08/08/2012 Insulin long-term use (HCC) [Z79.4] 08/09/2012 12/12/2018 Primary hypertension [I10] 05/16/2013 Depression [F32.A] 05/16/2013 08/18/2024 Vitamin D deficiency [E55.9] 01/05/2017 08/18/2024 Chest pain [R07.9] 04/01/2017 03/10/2019 Obesity, Class II, BMI 35-39.9 [E66.812] 02/05/2020 02/10/2021 Diabetic ulcer of posterior right heel (HCC) [E*02/06/2020 08/12/2020 Hyperglycemia [R73.9] 02/04/2021 02/10/2021 Hyponatremia [E87.1] 02/04/2021 08/18/2024 Lightheadedness [R42] 02/04/2021 02/04/2021 Malaise and fatigue [R53.81, R53.83] 02/04/2021 02/04/2021 Obesity, Class I, BMI 30-34.9 [E66.811] 02/10/2021 03/23/2022 Pain in right knee [M25.561] 02/10/2021 07/27/2024 Obesity, Class II, BMI 35-39.9 [E66.812] 09/29/2021 09/23/2022 (more content not included)... [facility] 08-28-2024 History of Presen t illness Narrative Images from the original note were not included. [facility] AT [address] [id number] Discharge Notification Patient Name: Shade Brambila : 1960 Today's Date: 08/28/2024 Patient has not been seen since 06/20/24. The patient will be discharged at this time due to inactivity. The patient has not been seen for outpatient therapy in 30+ days and has not made contact to reschedule. The patient will require new referral/evaluation to resume therapy in the future. The patient will be discharged at this time. Please refer to initial evaluation or re-assessment for last goals/objective measures assessment and progress report. Thank you for this referral. For any questions on this patient s course of therapy, please call the clinic for clarification. Hu Hawley PT documented in this encounter [facility] 08-24-2024 Note [facility] 08-23-2024 Note [facility] 08-23-2024 Note [facility] 08-22-2024 Note [facility] 08-22-2024 Note [facility] 08-21-2024 Note [facility] 08-21-2024 Note [facility] 08-21-2024 Note [facility] 08-21-2024 History of Presen t illness Narrative Date of Visit: 08/17/2024 Problem list reviewed. CHIEF COMPLAINT: check B/L lower leg wounds DM II A1c 8.3 (10/07/23) DLS 02/08/24 HISTORY OF PRESENT ILLNESS: Patient last seen while in hospital for B/L lower leg wounds in late july. she had achilles tendon exposed to left. she has been weeping drainage. her wound care was not great while at SNF she states. she is off abx at this time. she had vascular angio to LEFT with single vessel run off via PT artery on left. she has had lots of weeping drainage. she comes in with both of her leg dressings soaked, left worse than right Denies N/V/F/C/D/SOB/CP/LP. She relates she can't feel feet well due to neuropathy. She has numbness and toe amputations. Referred by Dr. Dasilva. 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 Right 2nd toe amputation and hallux I&D 10/28/22. Hx s/p RT toe amp 3,4,5 (DOS 10/14/23) DME DM inserts 08/24/23 rx circade wraps 08/14/22 CURRENT MEDICATIONS: oxyCODONE HCl Oral Tablet 5 MG (07/05/2024) Take 1 tablet every 12 hours as needed for 7 day(s) Percocet Oral Tablet 5-325 MG (07/20/2024) Take 1 tablet every 12 hours as needed for 7 day(s) Clindamycin HCl Oral Capsule 300 MG (11/26/2022) TAKE 1 CAPSULE BY MOUTH EVERY 8 HOURS FOR 7 DAYS. oxyCODONE-Acetaminophen Oral Tablet 5-325 MG (10/28/2022) Ketorolac Tromethamine Ophthalmic Solution 0.5 % (04/26/2023) Accu-Chek Jose Plus In Vitro Strip (09/23/2022) Sulfamethoxazole-Trimethoprim Oral Tablet 800-160 MG (06/24/2023) Atorvastatin Calcium Oral Tablet 80 MG (06/13/2023) miSOPROStol Oral Tablet 200 MCG (06/15/2023) TAKE 2 TABLETS BY MOUTH THE DAY PRIOR TO PROCEDURE AT BEDTIME WITH FOOD Fluticasone Propionate Nasal Suspension 50 MCG/ACT (12/15/2022) USE 2 SPRAYS IN EACH NOSTRIL DAILY X1 WEEK,THEN 1 SPRAY IN EACH NOSTRIL DAILY THEREAFTER NEEDED Nitrofurantoin Monohyd Macro Oral Capsule 100 MG (02/08/2023) Cephalexin Oral Capsule 500 MG (09/26/2022) Doxycycline Hyclate Oral Capsule 100 MG (11/10/2022) Fluconazole Oral Tablet 200 MG (03/20/2024) TAKE 1 TABLET EVERY DAY FOR 21 DAYS Bactrim DS Oral Tablet 800-160 MG (06/24/2023) Take 1 tablet twice a day for 10 day(s) Cipro Oral Tablet 500 MG (06/11/2023) Take 1 tablet twice a day for 7 day(s) Doxycycline Hyclate Oral Tablet 100 MG (06/08/2023) Take 1 tablet twice a day for 7 day(s) Ciprofloxacin HCl Oral Tablet 500 MG (11/10/2022) Take 1 tablet twice a day for 7 day(s) Cephalexin Oral Tablet 500 MG (10/23/2022) Take 1 tablet three times a day for 7 day(s) Ofloxacin Ophthalmic Solution 0.3 % (03/30/2023) diazePAM Oral Tablet 10 MG (02/19/2022) TAKE 1 TABLET 60 MIN BEFORE TEST Atorvastatin Calcium Oral Tablet 40 MG (11/18/2022) FLUoxetine HCl Oral Capsule 40 MG (01/26/2022) Enalapril Maleate Oral Tablet 10 MG (01/26/2022) TAKE 1 TABLET BY MOUTH EVERY DAY Erythromycin Ophthalmic Ointment 5 MG/GM (02/09/2022) APPLY 1 A SMALL AMOUNT LEFT EYE 4 TIMES A DAY Atorvastatin Calcium Oral Tablet 20 MG (01/26/2022) TAKE 1 TABLET BY MOUTH EVERY DAY Spironolactone Oral Tablet 25 MG (06/15/2023) TAKE 0.5 TABLETS BY MOUTH ONCE DAILY. Jardiance Oral Tablet 25 MG (06/14/2023) TAKE 1 TABLET BY MOUTH EVERY DAY WITH BREAKFAST Furosemide Oral Tablet 40 MG (11/18/2022) HumuLIN R U-500 KwikPen Subcutaneous Solution Pen-injector 500 UNIT/ML (06/14/2023) INJECT 40 UNITS SUBCUTANEOUSLY AT BREAKFAST, 100 UNITS AT LUNCH, 80 UNITS AT SUPPER. metFORMIN HCl Oral Tablet 1000 MG (11/23/2022) TAKE 1 TABLET BY MOUTH TWICE DAILY WITH MEALS. E11.3599 ALLERGIES: Band-Aid [place] Surg Dressing Other Bandaging Tape Other PAST MEDICAL HISTORY: Podiatry History remarkable for Foot Numbness, Fungal Nails, Leg or Foot Ulcers. The patient has a past medical history of Arthritis, Depression, DM-Medication Dependent, Poor Circulation. Neuropathy High Cholesterol SURGICAL HISTORY: Hand Tonsils HOSPITALIZATIONS: None Noted SOCIAL HISTORY: Smoking Status: Never smoker; Last Reviewed: 12/08/2023 Alcohol use: social drinker No drug use Social History Reviewed (01/16/2021 11:20:18 AM EST) FAMILY HISTORY: There is a family history of Denial of any knowledge of significant family history. Denial of any knowledge of significant family history Family History Reviewed (01/16/2021 11:20:19 AM EST) REVIEW OF SYSTEMS: Psychologic: Admits to No psych symptoms. Review of systems otherwise negative PHYSICAL EXAMINATION: Vital Signs: Weight 235 lbs; Height 5 ft 8 in; BMI 35.7 08/14/2024 7:28 AM (EST) Temperature 98.6 F; Pulse Rate 100 bpm; Blood Pressure 120 / 80 mm/Hg Vascular Exam: BL Foot DP / PT pulses +1/4 2/2 swelling. 2+ edema B/L LE CFT less than 3 seconds to digits LEFT, skin temp warm to warm from proximal to distal BL Foot Dermatologic Exam: LT lower leg circumferential wound predebridement measures 14.8x17x0.7cm and post debridement measures 75x26s3.9cm with 40:60granular fibrotic base post, surrounding slough, no erythema, no purulence, no probe to bone, no malodor, HEAVY serous drainage, macerated periwound. into level of fascia, exposed achilles tendon. LEFT medial malleolus eschar 2x3.5cm with eschar turning wet. mild serous drainage noted. LEFT hallux eschar distal tuft - stable. no drainage. 0.9x0.8cm LEFT dorsal foot cluster wound predebridement measures 8.1x9.9x0.4cm and post debridement measures 8.2x10x0.5cm with 60:40 granular fibrotic base, no surrounding callus, surrounding slough, positive for erythema, no purulence, no probe to bone, no malodor, moderate serosanguinous drainage. Into level of FASCIA, partial thickness RT posterior lower leg wound measures 10.1x12.4x0.1cm and post debridement measures 10.2x12.5x0.1cm with 60:40 granular fibrotic base, surrounding slough, positive for chronic erythema, no purulence, no probe to bone, mild malodor, HEAVY serous drainage. Into level of SUBCUTANEOUS TISSUE RT anterior lateral lower leg cluster wound measures 6.4x2.4x0.2cm and post debridement measures 6.5x2.5x0.3cm with 40:60 granular fibrotic base, surrounding slough, positive for chronic erythema, no purulence, no probe to bone, mild malodor, HEAVY serous drainage. Into level of SUBCUTANEOUS TISSUE LEFT foot 2nd toe tuft hyperkeratotic tissue Nails 2-5 left are thickened, elongated and discolored with subungual debris. The nails are greater than .3mm in thickness. The discoloration is yellowish in color. Innerspaces 1-4 LT are clean dry and intact. Skin texture and turgor are decreased. absent or decreased hair growth bilateral. chronic lower leg red hyperpigmentation Neurologic Exam: Comments/Other Findings: Vibratory sensations decreased LT, Protective sensations absent LT tested with 5.07 monofilament, and light, sharp, and temperature sensations intact LT. Normal Babinski test noted bl foot after testing Orthopedic Exam: Additional Orthopedic Findings: RT foot toe amputations 1,2,3,4,5 LEFT 2nd hammertoe contracture semi- rigid DIAGNOSIS: Type II diabetes mellitus with neurological manifestations Lymphedema of both lower extremities PVD (peripheral vascular disease) History of amputation of right great toe Amputated toe of right foot Hammertoe of right foot Personal history of diabetic foot ulcer Callus Diabetic ulcer of toe of left foot associated with type 2 diabetes mellitus, limited to breakdown of skin Swelling of right lower extremity Surgical wound dehiscence Onychomycosis Venous ulcer of left lower extremity without varicose veins Ulcer of left lower extremity, limited to breakdown of skin Venous ulcer of right lower extremity without varicose veins Ulcer of right lower extremity, limited to breakdown of skin Onycholysis 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 Chronic heart failure with preserved ejection fraction Diabetic ulcer of left lower leg with necrosis of muscle Diabetic ulcer of right lower leg with necrosis of muscle PLAN AND TREATMENT: ASSESMENT & PLAN BL Foot and Ankle and Lower extremity Exam and Evaluation carried out with a treatment plan reviewed with the patient and findings discussed with patient including alternatives, benefits, complications and risks TESTS / IMAGING / X-RAY EXAM 12/22/21 PVR RESULTS: RIGHT SIDE Resting right ankle brachial index: 1.37Right toe brachial index: 0.70Normal ankle brachial index at rest in the right leg. Normal toe brachial index at rest in the right leg. Right ankle: Normal at rest. LEFT SIDE Resting left ankle brachial index: 1.33Left toe brachial index: 0.83Normal ankle brachial index at rest in the left leg. Normal toe brachial index at rest in the left leg. Left ankle: Normal at rest. PREVIOUS right foot XR: There was noted to be normal joint spaces unless noted. No fractures or dislocations noted. No soft tissue emphysema noted. No osteopenia or sclerosis noted. tibial and fibular sesamoid excised, there is small calcified piece of fibular sesamoid bone noted to plantar lateral 1st met. RT foot amp at MTPJ 1,2,3,4,5. no lytic lesions. no soft tissue gas noted. Right Doppler Waveforms Dorsalis pedis: Multiphasic. Post tibial: Multiphasic. Right Pressures Brachial: 154 mmHg High thigh: greater than 255 mmHg Non-compressible arteries. Low thigh: greater than 255 mmHg Non-compressible arteries. Calf: greater than 255 mmHg Non-compressible arteries. Ankle dorsalis pedis: 146 mmHg MANJEET: 0.95 Ankle posterior tibial: 197 mmHg MANJEET: 1.28 Digit: Transmetatarsal amputation. Right PVR Waveforms High thigh: Normal. Low thigh: Normal. Calf: Normal. Ankle: Normal. Transmetatarsal: Normal. Digit: Transmetatarsal amputation. LEFT SIDE AT REST Left Doppler Waveforms Dorsalis pedis: Multiphasic. Post tibial: Multiphasic. Left Pressures Brachial: 153 mmHg High thigh: greater than 255 mmHg Non-compressible arteries. Low thigh: greater than 255 mmHg Non-compressible arteries. Calf: 218 mmHg Partially non-compressible arteries. Ankle dorsalis pedis: 138 mmHg MANJEET: 0.90 Ankle posterior tibial: 108 mmHg MANJEET: 0.70 Digit: 98 mmHg Left PVR Waveforms High thigh: Normal. Low thigh: Normal. Calf: Normal. Ankle: Mildly dampened. Transmetatarsal: Moderately dampened. Digit: Moderately dampened. B/L LE much worse with weeping drainage. LEFT and RIGHT is circumferential cluster. LEFT deeper posteriorly LEFT great toenail was removed last visit and she had LEFT great toe temp nail avulsion site stable. dry. no SOI. RT anterior lower leg cluster wound was treated with sharp excisional debridement carried out of the wound with non selective sharp excisional debridement past the dermis into SUBCUTANEOUS level with use of curette and 15 scalpel blade. Devitalized tissue removed. We then flushed out the wound with wound wash sterile saline. Area numbed with lidocaine gel if sensate prior. see phys exam for sizes LEFT and RIGHT posterior lower leg wound and LEFT dorsal foot cluster wound was treated with sharp excisional debridement carried out of the wound with non selective sharp excisional debridement past the dermis into FASCIA/tendon level with use of curette and 15 scalpel blade. Devitalized tissue removed. We then flushed out the wound with wound wash sterile saline. Area numbed with lidocaine gel if sensate prior. see phys exam for sizes follows with vascular had angio while admitted and has single vessel run off to left via PT artery did not recommend further intervention worsened B/L lower leg wounds.had achilles tendon on LEFT exposed and now RIGHT exposed i want patient admitted. we will get updated images and cultures and get on IV abx she is not healing to left and the right is worsened she is very high risk BKA B/L retirement we can't do wound vac B/L due to her weeping circumferential wounds B/L lower legs and vac drape won't be able to be used. she needs her lower leg wounds healed surrounding achiles tendon and if that happens we can use vac and try to get coverage over tendon goal is to keep achilles healthy she needs to stay non-weight bearing B/L will see on consult in hospital. Type II diabetes mellitus with neurological manifestations 250.60 E11.49 Diagnosis Notes Drag & Drop to change diagnosis order Lymphedema of both lower extremities 457.1 I89.0 Diagnosis Notes Drag & Drop to change diagnosis order PVD (peripheral vascular disease) 443.9 I73.9 Diagnosis Notes Drag & Drop to change diagnosis order History of amputation of right great toe V49.71 Z89.411 Diagnosis Notes Drag & Drop to change diagnosis order Amputated toe of right foot 895.0 S98.131A Diagnosis Notes Drag & Drop to change diagnosis order Hammertoe of right foot 735.4 M20.41 Diagnosis Notes Drag & Drop to change diagnosis order Personal history of diabetic foot ulcer V12.29 Z86.31 Diagnosis Notes Drag & Drop to change diagnosis order Callus 700 L84 Diagnosis Notes Drag & Drop to change diagnosis order Diabetic ulcer of toe of left foot associated with type 2 diabetes mellitus, limited to breakdown of skin 250.80 E11.621 Diagnosis Notes Drag & Drop to change diagnosis order Swelling of right lower extremity 729.81 M79.89 Diagnosis Notes Drag & Drop to change diagnosis order Surgical wound dehiscence 998.32 T81.31XA Diagnosis Notes Drag & Drop to change diagnosis order Onychomycosis 110.1 B35.1 Diagnosis Notes Drag & Drop to change diagnosis order Venous ulcer of left lower extremity without varicose veins 459.81 I87.2 Diagnosis Notes Drag & Drop to change diagnosis order Ulcer of left lower extremity, limited to breakdown of skin 707.10 L97.921 Diagnosis Notes Drag & Drop to change diagnosis order Venous ulcer of right lower extremity without varicose veins 459.81 I87.2 Diagnosis Notes Drag & Drop to change diagnosis order Ulcer of right lower extremity, limited to breakdown of skin 707.10 L97.911 Diagnosis Notes Drag & Drop to change diagnosis order Onycholysis 703.8 L60.1 Diagnosis Notes Drag & Drop to change diagnosis order 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 707.13 L97.323 Diagnosis Notes Drag & Drop to change diagnosis order Chronic heart failure with preserved ejection fraction 428.9 I50.32 Diagnosis Notes Drag & Drop to change diagnosis order Diabetic ulcer of left lower leg with necrosis of muscle 250.80 E11.622 Diagnosis Notes Drag & Drop to change diagnosis order Diabetic ulcer of right lower leg with necrosis of muscle 250.80 E11.622 Nursing Documentation Pertinent Medical History: DM2, HTN, venous insufficiency, & heart failure Wound Etiology according to patient: leg swelling & wounds February 2024 Pt had right great toe amputation June 18, 2023 Patient arrived via: Ambulatory with cane Home Care Company/Nursing Facility: N/A Consent captured for debridement per Berny Reyes DPM and linda until September 2024 Consent captured for debridement per Hu Pickard DPM and linda until September 2024 Anticoagulant Therapy: ASA 81mg ACTIVE CARE PER PROVIDER: Giovanni Bolanos DPM, Hu Pickard DPM, Alfredo Moore DPM, & Berny Reyes DPM Wounds 1-30 previously closed WOUND # 34 LOCATION: Right Distal Medial Lower Leg-CLOSED 03/13/24 (February 2024) CLOSED 03/13/24, closed 03/29/24 Application Dates: Grafts are complete 01/07/2023 Apligraf 01/15/2023 Apligraf 01/21/2023 Apligraf 01/27/2023 Apligraf 02/04/2023 Apligraf WOUND # 35 LOCATION: Right Posterior Lower Leg (February 2024) Closed 03/29/24, closed 04/12/24 WOUND # 31 LOCATION: Left Anterior Lower Leg (February 2024) 07/05/24: combined with wound #32 WOUND # 32 LOCATION: Left Posterior Lower Leg Cluster (February 2024) WOUND # 33 LOCATION: Right Medial Lower Leg (February 2024) WOUND # 34 LOCATION: Right Posterior Inferior Leg (May 2024) #33 & #34 combined and renamed wound #38 WOUND ASSESSMENT: Refer to Provider's Wound Assessment Note VASCULAR ASSESSMENT BY PROVIDER: See provider wound assessment note CHF History: Yes as of February 2022, Dr. Sadler in Cardiology EDEMA: Right Foot: 3+ Right Calf: Brawny Left Foot: Brawny Left Calf: Brawny MEASUREMENTS: in CM Right Calf: 37.0 Right Ankle: 24.5 Left Calf: 34.0 Left Ankle: 24.0 Length: 43.0 WOUND PHOTOGRAPHY: Yes x 8, date taken 08/17/24 DEBRIDEMENT PROCEDURE BY PROVIDER: Anesthetic Used: 2% Lidocaine gel applied by Lucia Mendez RN Other procedure: N/A Specimen collected: N/A WOUND TREATMENT PER MD ORDER: Wounds cleansed by mechanical debridement to allow provider to visualize wound base Report called to [facility] RN spoke with Eva RUIZ. 07/05/24: Patient reports wosening heart failure; states she has a lot more swelling in the legs and has had trouble breathing when trying to lay in bed to sleep; weight today = 247lbs (up almost 25lbs since 2023). Message sent to Ayan Wallis CNP with heart failure clinic. Patient states she has been speaking to Ayan via telephone regarding weight gain. 07/26/24: Pt with increased pain, drainage, redness noted to bilateral lower legs. New wounds present on bilateral lower legs. Pt stated that she did not come to appointment last week with Dr. Reyes due to not feeling well, stated that her legs were giving her issues. Discussed with pt the importance of not waiting to be seen if her Dr. Reyes would like pt to go to the ER. LEFT LOWER LEG WOUNDS WOUND # 37 LOCATION: Left lower leg now circumferential (wounds #31 & 32 are now combined and renamed wound #37 on 07/05/24) L: 15.0 cm x W: 17.0 cm x D: 0.9 cm - Achilles Tendon exposed 08/17/24 Cleansed with: Vashe Applied to naya-wound skin: N/A Applied to wound bed: adaptic Covered and secured with: ABD pads, Kerlix, Tape Other: stockinet WOUND # 36 LOCATION: Left hallux nail bed (NEW 07/05/24 - Left hallux nail loose, thickened, dark in color - patient states it has been bleeding at home, toe nail removed today with a blood blister noted beneath the nail L: 0.6 cm x W: 0.6 cm x D: eschar Cleansed with: Vashe Applied to naya-wound skin: N/A Applied to wound bed: N/A Covered and secured with: ABD pads, Kerlix, & Tape WOUND # 41 - LOCATION: Left Medial Ankle (NEW 07/26/24 L: 2.0 cm x W: 3.5 cm x D: eschar WOUND # 42 - LOCATION: Left Achilles (NEW 07/26/24 - Merged with wound #37 WOUND # 43 - LOCATION: Left Dorsal Foot - Cluster (NEW 07/26/24 L: 8.2 cm x W: 10.0 cm x D: 0.7 cm WOUND # 44 - LOCATION: Left Posterior Lateral Foot - (08/17/24 ) Post Debridement Measurements: L: 1.0 cm x W: 2.0 cm x D: 0.3 cm Cleansed with: Vashe Applied to naya-wound skin: N/A Applied to wound bed: N/A Covered and secured with: ABD pads, Kerlix, & Tape RIGHT LOWER LEG WOUNDS WOUND # 39 LOCATION: Right Lower Leg Circumferential L: 10.2 cm x W: 12.5 cm x D: 0.9 cm - Achilles Tendon exposed 08/17/24 WOUND # 45 - LOCATION: Right Anterior Lateral Lower Leg Cluster - (08/17/24 ) L: 6.5 cm x W: 2.5 cm x D: 0.3 cm Cleansed with: Vashe Applied to naya-wound skin: N/A Applied to wound bed: N/A Covered and secured with: ABD pads, Kerlix, & Tape WOUND # 40 - LOCATION: Right Lower Leg Superior Medial - Merged with wound #39 COMPRESSION: N/A - Dr. 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 Examiner N/A Incontinence needs N/A DME company: ordered 03/01/24 Farrow wraps, Supplies ordered 06/07/2024 x 30 days with 2 refills DISCHARGED in stable condition to: ER with nephew Stephen PLAN/ORDERS: Follow-up in the Wound Center with Dr Reyes when discharged from hospital Contact the [facility] podiatry office regarding a 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 Continue wearing Farrow wraps for compression May consider HBOT again in the future Be sure to check your weight daily and follow up with HF clinic as scheduled. OTHER EDUCATION: The patient/family was instructed how to cleanse the wound(s). Visual demonstration on how to apply the dressing with teach back method. Signs & symptoms of infection were reviewed: Increased redness, swelling, pain, green/yellow drainage, fever and/or chills would all need to be evaluated by a Physician. Patient received typed home-going wound care instructions and has expressed intent to comply. Education performed regarding lymphedema/edema: Elevation of extremity above the heart for 30 minutes three times daily and as needed Exercise such as writing the ABC's with your toes in the air, walking and/or calf pumps Wearing compression as ordered by provider Diet controlling of sodium as instructed by provider Use of medication to help control edema. UNIVERSAL PROTOCOL / SAFETY CHECKLIST Procedure to be Performed sharp debridement of Bilateral Lower Legs Sign In: 1310 A Moment of CARE was completed. Personnel directly involved with the procedure wore the appropriate PPE (Personal Protective Equipment). Patient/Surrogate Stated/Verified: PATIENT VERIFIED(optional for EMERGENT procedures): Patient name, Date of , Relevant allergies, and The intended procedure Time Out Communication: 1340 Intended patient and procedure match the source documents. Consent documented and matches the intended procedure. No relevant labs, photos, and/or imaging studies were applicable for review. Sign Out: 1340 SIGN OUT (optional for EMERGENT procedures): All instruments, equipment, possible retained foreign bodies accounted for. Current HBOT Status: Active or Complete - see screening below WOUND CENTER HYPERBARIC OXYGEN THERAPY SCREENING 1. Is the patient diabetic? (If No, skip to question 5) Yes 2. Does the patient have a lower extremity wound? Yes 3. Is there exposed/involved tendon or bone? NO 4. Has the wound been present for 30 days? Yes If Yes to ALL questions above, consult the [facility]ic Center 5. Has the patient been diagnosed with osteomyelitis? No 6. Has the patient had a previous skin graft or flap at the wound? No 7. Has the patient had or been offered vascular intervention/evaluation? No 8. Does the patient have a wound at an amputation site? Yes 9. Has the patient had radiation therapy at the site of the problem? No If Yes to ANY of questions 5-9, consult the Hyperbaric Center 07/05/24 Dr. Benitez in to examine and discuss possible resumption of HBOT. Patient is not a candidate for HBOT at this time Li Munoz RN/HARMONY documented in this encounter [facility] 08-20-2024 Note [facility] 08-20-2024 Note [facility] 08-19-2024 Note [facility] 08-19-2024 Note [facility] 08-19-2024 Note HNO ID: [id number] Author: NOTE, INTERFACE, ? Service: ? Author Type: ? Type: Progress Notes Filed: 08/24/2024 16:01 Note Text: Epic Scheduled Downtime: 08/19/2024 1:00:00 AM to 08/19/2024 2:52:17 AM [facility] 08-18-2024 Note [facility] 08-17-2024 Instructions Li Munoz RN - 08/17/2024 1:10 PM EST WOUND CARE INSTRUCTIONS- Shade Brambila Wound location: Bilateral Lower Legs [facility] [employer] [facility] Dr. Berny Reyes has recommended you be evaluated and admitted via the [facility] due to tendon now exposed in some of the wound beds. Compression must be removed if: it becomes wet or soiled If you have numbness or tingling in your foot or toes If you have increased pain If toes become cold or discolored - Avoid sitting with legs in a dependent position or standing for long periods of time. - Attempt to lay flat and elevate your legs above the level of your heart 2-3 times daily, for 30 minutes at a time. - Be sure to continue walking and/or calf pumps and exercises to mimic writing the alphabet with your foot, as instructed Foot care Many people with diabetes lose the feeling in their feet (neuropathy). Therefore, they might not know they have an injury that can lead to serious problems, such as foot removal (amputation). By taking care of your feet, most serious problems can be prevented. If you have problems checking your own feet, have a family member or friend help you. Easy steps to protect your feet: Check your feet every day for: dry or cracked skin, cuts, open sores, blisters, redness, swelling, corns, calluses, or toenail problems. Use a mirror if necessary. Report any problems to your doctor. Keep your feet clean and dry, especially between the toes. If your feet are dry or cracked use a moisturizing lotion at least daily but never between the toes. See your judicial clerk every three months for foot and nail care. Don't go barefoot. Wear shoes or slippers at all times. Wear comfortable shoes that fit well. Check inside your shoes for foreign objects or rough spots before putting on shoes. Always wear socks. Avoid using anything hot, such as heating pads, hot water bottles, hot tubs, or bath water. Check the temperature of bath water with your elbow not your foot. Take your shoes and socks off at every office visit to remind your doctor to check your feet. Also, never tape a dressing directly to the skin on your legs or feet. Instead, use a self-adherent bandage to avoid injuring the skin on your lower extremities If calluses form they can cause wound ulcers to appear under the callus, must be seen by [employer] every three months to prevent. Maintain controlled blood sugar, if blood sugar is consistently above 200 this can delay wound healing and aggravate neuropathy. To give your wound the best chance to heal: - Eat three balanced meals daily focusing on the protein - Control your blood sugar. Keep blood sugar less than 200 - Complete your wound care instructions as ordered - Vitamin C 500 mg twice daily - Multiple Vitamin Daily - Drink a protein shake daily - Premiere Clear or Glucerna for Diabetic patients, Nepro for renal patients and premiere for non-renal and non-diabetic patients Report any of the following signs and symptoms of infection to the Wound Center at [phone] or go to the Emergency Department: Fever or chills Increased drainage Green or yellow drainage Foul odor Increased pain Hardness around the wound Redness, warmth or swelling of the surrounding tissue Color change to the wound Evenings / Weekends / Holidays If you call the wound center at the phone number provided above, please leave a detailed message that includes your full name, birthday, and phone number. We are seeing patients during the day, so we will return your call within a 24-48 hr period in the order your call was received. There is not an on-call provider assigned to the wound center. If you have an emergency that needs to be addressed, please go to an Urgent Care or Emergency Room. Thank you for your cooperation and understanding. If you are feeling ill, please call to reschedule your appointment. If you believe your illness to be wound related, call and leave a message using the directions above describing your symptoms. If you cannot wait 24-48 hrs for a callback, please get evaluated in the nearest emergency department. PLAN/ORDERS: - Follow-up in the Wound Center with Dr. Reyes when discharged from the hospital. - Continue wearing Farrow wraps for compression. - May consider HBOT again in the future. - Be sure to check your weight daily and follow up with HF clinic as scheduled. - Continue aggressive nutritional support to assist in wound healing, focusing heavily on increasing protein intake. Try to get about 100 g of protein per day to promote wound healing. Look into supplementing your meals with protein shakes. Do NOT skip meals! - If you have any questions or concerns that cannot be answered with the following information, please follow the instructions listed above on how to contact the wound center. Berny Reyes DPM/CIARA/HARMONY documented in this encounter [facility] 08-17-2024 Note [facility] 08-09-2024 Telephone encounter Note HF Follow-up Phone Call: Red Flags: Patient noticed change in their breathing since discharge: No Patient noticed increased swelling in their feet or ankles: No Patient gained more than 4 pounds since discharge: No Patient noticed change in incision since discharge (surgical patients only): N/A Patient having chest discomfort since discharge: No If yes, what type of pain and where: Patient went to the ED or hospital after their discharge: No Was it related to HF: No Reason: Medications: Did patient refill their prescriptions: Yes If no, why: N/A Patient taking medications as prescribed: No If no, why: N/A Patient had questions about their medications: No Care Coordination: Patient had an appointment within 7 days: Yes-Pt at [facility]. Patient issues with appointment: N/A Comments: Pt had to cancel appointment w/ the wound center this week d/t COVID +. Pt would like to reschedule. Pt given contact #. Sodium 134 08/02/2024 Potassium 4.8 08/02/2024 BUN 35 08/02/2024 Creatinine 1.20 08/02/2024 No results found for this basename: BNP [facility] 08-09-2024 Miscellaneous Notes HF Follow-up Phone Call: Red Flags: Patient noticed change in their breathing since discharge: No Patient noticed increased swelling in their feet or ankles: No Patient gained more than 4 pounds since discharge: No Patient noticed change in incision since discharge (surgical patients only): N/A Patient having chest discomfort since discharge: No If yes, what type of pain and where: Patient went to the ED or hospital after their discharge: No Was it related to HF: No Reason: Medications: Did patient refill their prescriptions: Yes If no, why: N/A Patient taking medications as prescribed: No If no, why: N/A Patient had questions about their medications: No Care Coordination: Patient had an appointment within 7 days: Yes-Pt at [facility]. Patient issues with appointment: N/A Comments: Pt had to cancel appointment w/ the wound center this week d/t COVID +. Pt would like to reschedule. Pt given contact #. Sodium 134 08/02/2024 Potassium 4.8 08/02/2024 BUN 35 08/02/2024 Creatinine 1.20 08/02/2024 No results found for this basename: BNP documented in this encounter [facility] 08-02-2024 Note HNO ID: [id number] Author: RODO BULLOCK RN Service: Nursing Author Type: Registered Nurse Type: Nursing Progress Note Filed: 08/02/2024 13:18 Note Text: Other: 08/02/24 1315 report given to STEPHANIE Camacho at [facility] 08-02-2024 Note [facility] 08-01-2024 Note [facility] 07-31-2024 Note [facility] 07-31-2024 Note [facility] 07-30-2024 Note [facility] 07-30-2024 Note [facility] 07-29-2024 Note [facility] 07-28-2024 Note [facility] 07-28-2024 Note [facility] 07-28-2024 History of Presen t illness Narrative Date of Visit: 07/26/2024 Problem list reviewed. CHIEF COMPLAINT: check B/L lower leg wounds DM II A1c 8.3 (10/07/23) DLS 02/08/24 HISTORY OF PRESENT ILLNESS: Patient last seen 06/22/24. She has worsening LEFT lower leg and Right lower leg wounds and swelling/pain. has eschar formation to LEFT medial ankle and tip of LEFT great toe. she has had lots of weeping drainage. she missed last week appointment because she didn't feel good and lower legs hurt wounds have worsened B/L LE with increased drainage to posterior aspect of B/L lower leg. Here today for B/L lower leg wound check. She states that she has lost about 10 pounds total since last visit. she changed her dressings this morning but she is weeping so much that she comes in with both of her leg dressings soaked. Denies N/V/F/C/D/SOB/CP/LP. She relates she can't feel feet well due to neuropathy. She has numbness and toe amputations. Referred by Dr. Dasilva. 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 Right 2nd toe amputation and hallux I&D 10/28/22. Hx s/p RT toe amp 3,4,5 (DOS 10/14/23) DME DM inserts 08/24/23 rx circade wraps 08/14/22 CURRENT MEDICATIONS: oxyCODONE HCl Oral Tablet 5 MG (07/05/2024) Take 1 tablet every 12 hours as needed for 7 day(s) Percocet Oral Tablet 5-325 MG (07/20/2024) Take 1 tablet every 12 hours as needed for 7 day(s) Clindamycin HCl Oral Capsule 300 MG (11/26/2022) TAKE 1 CAPSULE BY MOUTH EVERY 8 HOURS FOR 7 DAYS. oxyCODONE-Acetaminophen Oral Tablet 5-325 MG (10/28/2022) Ketorolac Tromethamine Ophthalmic Solution 0.5 % (04/26/2023) Accu-Chek Jose Plus In Vitro Strip (09/23/2022) Sulfamethoxazole-Trimethoprim Oral Tablet 800-160 MG (06/24/2023) Atorvastatin Calcium Oral Tablet 80 MG (06/13/2023) miSOPROStol Oral Tablet 200 MCG (06/15/2023) TAKE 2 TABLETS BY MOUTH THE DAY PRIOR TO PROCEDURE AT BEDTIME WITH FOOD Fluticasone Propionate Nasal Suspension 50 MCG/ACT (12/15/2022) USE 2 SPRAYS IN EACH NOSTRIL DAILY X1 WEEK,THEN 1 SPRAY IN EACH NOSTRIL DAILY THEREAFTER NEEDED Nitrofurantoin Monohyd Macro Oral Capsule 100 MG (02/08/2023) Cephalexin Oral Capsule 500 MG (09/26/2022) Doxycycline Hyclate Oral Capsule 100 MG (11/10/2022) Fluconazole Oral Tablet 200 MG (03/20/2024) TAKE 1 TABLET EVERY DAY FOR 21 DAYS Bactrim DS Oral Tablet 800-160 MG (06/24/2023) Take 1 tablet twice a day for 10 day(s) Cipro Oral Tablet 500 MG (06/11/2023) Take 1 tablet twice a day for 7 day(s) Doxycycline Hyclate Oral Tablet 100 MG (06/08/2023) Take 1 tablet twice a day for 7 day(s) Ciprofloxacin HCl Oral Tablet 500 MG (11/10/2022) Take 1 tablet twice a day for 7 day(s) Cephalexin Oral Tablet 500 MG (10/23/2022) Take 1 tablet three times a day for 7 day(s) Ofloxacin Ophthalmic Solution 0.3 % (03/30/2023) diazePAM Oral Tablet 10 MG (02/19/2022) TAKE 1 TABLET 60 MIN BEFORE TEST Atorvastatin Calcium Oral Tablet 40 MG (11/18/2022) FLUoxetine HCl Oral Capsule 40 MG (01/26/2022) Enalapril Maleate Oral Tablet 10 MG (01/26/2022) TAKE 1 TABLET BY MOUTH EVERY DAY Erythromycin Ophthalmic Ointment 5 MG/GM (02/09/2022) APPLY 1 A SMALL AMOUNT LEFT EYE 4 TIMES A DAY Atorvastatin Calcium Oral Tablet 20 MG (01/26/2022) TAKE 1 TABLET BY MOUTH EVERY DAY Spironolactone Oral Tablet 25 MG (06/15/2023) TAKE 0.5 TABLETS BY MOUTH ONCE DAILY. Jardiance Oral Tablet 25 MG (06/14/2023) TAKE 1 TABLET BY MOUTH EVERY DAY WITH BREAKFAST Furosemide Oral Tablet 40 MG (11/18/2022) HumuLIN R U-500 KwikPen Subcutaneous Solution Pen-injector 500 UNIT/ML (06/14/2023) INJECT 40 UNITS SUBCUTANEOUSLY AT BREAKFAST, 100 UNITS AT LUNCH, 80 UNITS AT SUPPER. metFORMIN HCl Oral Tablet 1000 MG (11/23/2022) TAKE 1 TABLET BY MOUTH TWICE DAILY WITH MEALS. E11.3599 ALLERGIES: Band-Aid [place] Surg Dressing Other Bandaging Tape Other PAST MEDICAL HISTORY: Podiatry History remarkable for Foot Numbness, Fungal Nails, Leg or Foot Ulcers. The patient has a past medical history of Arthritis, Depression, DM-Medication Dependent, Poor Circulation. Neuropathy High Cholesterol SURGICAL HISTORY: Hand Tonsils HOSPITALIZATIONS: None Noted SOCIAL HISTORY: Smoking Status: Never smoker; Last Reviewed: 12/08/2023 Alcohol use: social drinker No drug use Social History Reviewed (01/16/2021 11:20:18 AM EST) FAMILY HISTORY: There is a family history of Denial of any knowledge of significant family history. Denial of any knowledge of significant family history Family History Reviewed (01/16/2021 11:20:19 AM EST) REVIEW OF SYSTEMS: Psychologic: Admits to No psych symptoms. Review of systems otherwise negative PHYSICAL EXAMINATION: Vital Signs: Weight 235 lbs; Height 5 ft 8 in; BMI 35.7 07/25/2024 1:24 PM (EST) Temperature 98.6 F; Pulse Rate 100 bpm; Blood Pressure 120 / 80 mm/Hg Vascular Exam: BL Foot DP / PT pulses +1/4 2/2 swelling. 2+ edema B/L LE CFT less than 3 seconds to digits LEFT, skin temp warm to warm from proximal to distal BL Foot Dermatologic Exam: LT lower leg circumferential wound predebridement measures 38x30.5x0.1cm and post debridement measures 38x30.5x0.2cm with 40:60granular fibrotic base post, surrounding slough, no erythema, no purulence, no probe to bone, no malodor, HEAVY serous drainage, macerated periwound. into subcutaneous tissue LEFT posterior ankle wound predebridement measures 4.9x1.7x0.2cm and post debridement measures 5x1.8x0.3cm with 10:90 granular fibrotic base post, surrounding slough, no erythema, no purulence, no probe to bone, no malodor, HEAVY serous drainage, macerated periwound, superficial achilles exposed. Into level of FASCIA/tendon LEFT medial malleolus eschar 1.7x2.3cm with stable eschar. no drainage noted LEFT hallux eschar distal tuft - stable. no drainage. 0.9x0.8cm LEFT great toenail avulsion site dry nail bed. no probe to bone. LEFT dorsal foot cluster wound predebridement measures 8.1x10.9x0.1cm and post debridement measures 8.2x11x0.2cm with 60:40 granular fibrotic base, no surrounding callus, surrounding slough, positive for erythema, no purulence, no probe to bone, no malodor, moderate serosanguinous drainage. Into level of SUBCUTANEOUS TISSUE, partial thickness RT posterior lower leg wound circumferential measures 11.7x21.8x0.1cm and post debridement measures 11.8x22x0.1cm with 60:40 granular fibrotic base, surrounding slough, positive for chronic erythema, no purulence, no probe to bone, mild malodor, HEAVY serous drainage. Into level of SUBCUTANEOUS TISSUE LEFT foot 2nd toe tuft hyperkeratotic tissue Nails 2-5 left are thickened, elongated and discolored with subungual debris. The nails are greater than .3mm in thickness. The discoloration is yellowish in color. Innerspaces 1-4 LT are clean dry and intact. Skin texture and turgor are decreased. absent or decreased hair growth bilateral. chronic lower leg red hyperpigmentation Neurologic Exam: Comments/Other Findings: Vibratory sensations decreased LT, Protective sensations absent LT tested with 5.07 monofilament, and light, sharp, and temperature sensations intact LT. Normal Babinski test noted bl foot after testing Orthopedic Exam: Additional Orthopedic Findings: RT foot toe amputations 1,2,3,4,5 LEFT 2nd hammertoe contracture semi- rigid DIAGNOSIS: Type II diabetes mellitus with neurological manifestations Lymphedema of both lower extremities PVD (peripheral vascular disease) History of amputation of right great toe Amputated toe of right foot Hammertoe of right foot Personal history of diabetic foot ulcer Callus Diabetic ulcer of toe of left foot associated with type 2 diabetes mellitus, limited to breakdown of skin Swelling of right lower extremity Surgical wound dehiscence Onychomycosis Venous ulcer of left lower extremity without varicose veins Ulcer of left lower extremity, limited to breakdown of skin Venous ulcer of right lower extremity without varicose veins Ulcer of right lower extremity, limited to breakdown of skin Onycholysis 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 Normal toe brachial index at rest in the right leg. Right ankle: Normal at rest. LEFT SIDE Resting left ankle brachial index: 1.33Left toe brachial index: 0.83Normal ankle brachial index at rest in the left leg. Normal toe brachial index at rest in the left leg. Left ankle: Normal at rest. PREVIOUS right foot XR: There was noted to be normal joint spaces unless noted. No fractures or dislocations noted. No soft tissue emphysema noted. No osteopenia or sclerosis noted. tibial and fibular sesamoid excised, there is small calcified piece of fibular sesamoid bone noted to plantar lateral 1st met. RT foot amp at MTPJ 1,2,3,4,5. no lytic lesions. no soft tissue gas noted. Right Doppler Waveforms Dorsalis pedis: Multiphasic. Post tibial: Multiphasic. Right Pressures Brachial: 154 mmHg High thigh: greater than 255 mmHg Non-compressible arteries. Low thigh: greater than 255 mmHg Non-compressible arteries. Calf: greater than 255 mmHg Non-compressible arteries. Ankle dorsalis pedis: 146 mmHg MANJEET: 0.95 Ankle posterior tibial: 197 mmHg MANJEET: 1.28 Digit: Transmetatarsal amputation. Right PVR Waveforms High thigh: Normal. Low thigh: Normal. Calf: Normal. Ankle: Normal. Transmetatarsal: Normal. Digit: Transmetatarsal amputation. LEFT SIDE AT REST Left Doppler Waveforms Dorsalis pedis: Multiphasic. Post tibial: Multiphasic. Left Pressures Brachial: 153 mmHg High thigh: greater than 255 mmHg Non-compressible arteries. Low thigh: greater than 255 mmHg Non-compressible arteries. Calf: 218 mmHg Partially non-compressible arteries. Ankle dorsalis pedis: 138 mmHg MANJEET: 0.90 Ankle posterior tibial: 108 mmHg MANJEET: 0.70 Digit: 98 mmHg Left PVR Waveforms High thigh: Normal. Low thigh: Normal. Calf: Normal. Ankle: Mildly dampened. Transmetatarsal: Moderately dampened. Digit: Moderately dampened. B/L LE much worse with weeping drainage. LEFT and RIGHT is circumferential cluster. LEFT deeper posteriorly LEFT great toenail was removed last visit and she had LEFT great toe temp nail avulsion site stable. dry. no SOI. RT lower leg circumferential, LT circumferential lower extremity cluster, and LT dorsal foot cluster were treated with sharp excisional debridement carried out of the wound with non selective sharp excisional debridement past the dermis into SUBCUTANEOUS level with use of curette and 15 scalpel blade. Devitalized tissue removed. We then flushed out the wound with wound wash sterile saline. Area numbed with lidocaine gel if sensate prior. see phys exam for sizes LT posterior ankle wound was treated with sharp excisional debridement carried out of the wound with non selective sharp excisional debridement past the dermis into FASCIA level with use of curette and 15 scalpel blade. Devitalized tissue removed. We then flushed out the wound with wound wash sterile saline. Area numbed with lidocaine gel if sensate prior. see phys exam for sizes worsened B/L lower leg wounds. most concerned for LEFT sent patient to ER for admission and further work-up. she will need diuresed. her weeping has become unmanageable outpatient. she needs MRI LEFT ankle we discussed seriousness of the wounds due to getting deeper with left achilles involvement now and LEFT medial malleolus eschar over bony prominence which could lead to deeper infection and result in amputation of LEFT lower leg. will see on consult in hospital. Type II diabetes mellitus with neurological manifestations 250.60 E11.49 Diagnosis Notes Drag & Drop to change diagnosis order Lymphedema of both lower extremities 457.1 I89.0 Diagnosis Notes Drag & Drop to change diagnosis order PVD (peripheral vascular disease) 443.9 I73.9 Diagnosis Notes Drag & Drop to change diagnosis order History of amputation of right great toe V49.71 Z89.411 Diagnosis Notes Drag & Drop to change diagnosis order Amputated toe of right foot 895.0 S98.131A Diagnosis Notes Drag & Drop to change diagnosis order Hammertoe of right foot 735.4 M20.41 Diagnosis Notes Drag & Drop to change diagnosis order Personal history of diabetic foot ulcer V12.29 Z86.31 Diagnosis Notes Drag & Drop to change diagnosis order Callus 700 L84 Diagnosis Notes Drag & Drop to change diagnosis order Diabetic ulcer of toe of left foot associated with type 2 diabetes mellitus, limited to breakdown of skin 250.80 E11.621 Diagnosis Notes Drag & Drop to change diagnosis order Swelling of right lower extremity 729.81 M79.89 Diagnosis Notes Drag & Drop to change diagnosis order Surgical wound dehiscence 998.32 T81.31XA Diagnosis Notes Drag & Drop to change diagnosis order Onychomycosis 110.1 B35.1 Diagnosis Notes Drag & Drop to change diagnosis order Venous ulcer of left lower extremity without varicose veins 459.81 I87.2 Diagnosis Notes Drag & Drop to change diagnosis order Ulcer of left lower extremity, limited to breakdown of skin 707.10 L97.921 Diagnosis Notes Drag & Drop to change diagnosis order Venous ulcer of right lower extremity without varicose veins 459.81 I87.2 Diagnosis Notes Drag & Drop to change diagnosis order Ulcer of right lower extremity, limited to breakdown of skin 707.10 L97.911 Diagnosis Notes Drag & Drop to change diagnosis order Onycholysis 703.8 L60.1 Diagnosis Notes Drag & Drop to change diagnosis order 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 Author Type: Registered Nurse Type: Nursing Progress Note Filed: 07/27/2024 19:23 Note Text: Olegario wraps were placed by Dr. Plascencia. [facility] 07-27-2024 Note [facility] 07-27-2024 Note [facility] 07-26-2024 Note [facility] 07-26-2024 Note [facility] 07-26-2024 Instructions Leanna Harrison RN - 07/26/2024 10:13 AM EST WOUND CARE INSTRUCTIONS- Shade Brambila Wound location: Bilateral Lower Leg Wounds Please go to the Emergency Room for further evaluation. Compression must be removed if: it becomes wet or soiled If you have numbness or tingling in your foot or toes If you have increased pain If toes become cold or discolored - Avoid sitting with legs in a dependent position or standing for long periods of time. - Attempt to lay flat and elevate your legs above the level of your heart 2-3 times daily, for 30 minutes at a time. - Be sure to continue walking and/or calf pumps and exercises to mimic writing the alphabet with your foot, as instructed Foot care Many people with diabetes lose the feeling in their feet (neuropathy). Therefore, they might not know they have an injury that can lead to serious problems, such as foot removal (amputation). By taking care of your feet, most serious problems can be prevented. If you have problems checking your own feet, have a family member or friend help you. Easy steps to protect your feet: Check your feet every day for: dry or cracked skin, cuts, open sores, blisters, redness, swelling, corns, calluses, or toenail problems. Use a mirror if necessary. Report any problems to your doctor. Keep your feet clean and dry, especially between the toes. If your feet are dry or cracked use a moisturizing lotion at least daily but never between the toes. See your judicial clerk every three months for foot and nail care. Don't go barefoot. Wear shoes or slippers at all times. Wear comfortable shoes that fit well. Check inside your shoes for foreign objects or rough spots before putting on shoes. Always wear socks. Avoid using anything hot, such as heating pads, hot water bottles, hot tubs, or bath water. Check the temperature of bath water with your elbow not your foot. Take your shoes and socks off at every office visit to remind your doctor to check your feet. Also, never tape a dressing directly to the skin on your legs or feet. Instead, use a self-adherent bandage to avoid injuring the skin on your lower extremities If calluses form they can cause wound ulcers to appear under the callus, must be seen by [employer] every three months to prevent. Maintain controlled blood sugar, if blood sugar is consistently above 200 this can delay wound healing and aggravate neuropathy. - Control your sodium intake as instructed by provider To give your wound the best chance to heal: - Eat three balanced meals daily focusing on the protein - Control your blood sugar. Keep blood sugar less than 200 - Complete your wound care instructions as ordered - Vitamin C 500 mg twice daily - Multiple Vitamin Daily - Drink a protein shake daily - Premiere Clear or Glucerna for Diabetic patients, Nepro for renal patients and premiere for non-renal and non-diabetic patients Report any of the following signs and symptoms of infection to the Wound Center at [phone] or go to the Emergency Department: Fever or chills Increased drainage Green or yellow drainage Foul odor Increased pain Hardness around the wound Redness, warmth or swelling of the surrounding tissue Color change to the wound Evenings / Weekends / Holidays If you call the wound center at the phone number provided above, please leave a detailed message that includes your full name, birthday, and phone number. We are seeing patients during the day, so we will return your call within a 24-48 hr period in the order your call was received. There is not an on-call provider assigned to the wound center. If you have an emergency that needs to be addressed, please go to an Urgent Care or Emergency Room. Thank you for your cooperation and understanding. Due to the cold and flu season approaching us, if you have any symptoms such as a cough, fever, chills, nausea, vomiting, diarrhea, and/or body aches, please call and reschedule your appointment in the Wound Center. PLAN/ORDERS: Follow-up in the Wound Center with Dr Reyes when discharged from hospital Contact the [facility] podiatry office regarding a 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 Continue wearing Farrow wraps for compression May consider HBOT again in the future Be sure to check your weight daily and follow up with HF clinic as scheduled. Dr. Berny Reyes, PABLITO/dulce/tr documented in this encounter [facility] 07-26-2024 Nurse Note Nursing Documentation Pertinent Medical History: DM2, HTN, venous insufficiency, & heart failure Wound Etiology according to patient: leg swelling & wounds February 2024 Pt had right great toe amputation June 18, 2023 Patient arrived via: Ambulatory with [facility] AQS/Nursing Facility: N/A Consent captured for debridement per Dr. Berny Reyes DPM and linda until 2024 Consent captured for debridement per Dr. Hu Pickard DPM and linda until September 2024 Anticoagulant Therapy: ASA 81mg ACTIVE CARE PER PROVIDER: Giovanni Bolanos DPM, Hu Pickard DPM, & Alfredo Moore DPM Wounds 1-30 previously closed WOUND # 34 LOCATION: Right Distal Medial Lower Leg-CLOSED 03/13/24 (February 2024) CLOSED 03/13/24, closed 03/29/24 Application Dates: Grafts are complete 01/07/2023 Apligraf 01/15/2023 Apligraf 01/21/2023 Apligraf 01/27/2023 Apligraf 02/04/2023 Apligraf WOUND # 35 LOCATION: Right Posterior Lower Leg (February 2024) Closed 03/29/24, closed 04/12/24 WOUND # 31 LOCATION: Left Anterior Lower Leg (February 2024) 07/05/24: combined with wound #32 WOUND # 32 LOCATION: Left Posterior Lower Leg Cluster (February 2024) WOUND # 33 LOCATION: Right Medial Lower Leg (February 2024) WOUND # 34 LOCATION: Right Posterior Inferior Leg (May 2024) #33 & #34 combined and renamed wound #38 WOUND ASSESSMENT: Refer to Provider's Wound Assessment Note VASCULAR ASSESSMENT BY PROVIDER: See provider wound assessment note CHF History: Yes as of February 2022, Dr. Sadler in Cardiology EDEMA: Right Foot: trace Right Ankle: trace Right Calf: 1+ Left Foot: trace Left Ankle: trace Left Calf: 3+ Other: N/A MEASUREMENTS: in cm Right Calf: 33.5 Right Ankle: 21.9 Left Calf: 33.5 Left Ankle: 21.5 Length: 43.0 WOUND PHOTOGRAPHY: YES x 6 (last taken 07/26/24) DEBRIDEMENT PROCEDURE BY PROVIDER: Anesthetic Used: 2% lidogel applied by Jarrett Kenny RN Other procedure: n/a Specimen collected: wound culture taken from left medial lower leg WOUND TREATMENT PER MD ORDER: Wounds cleansed by mechanical debridement to allow provider to visualize wound base 07/05/24: Patient reports wosening heart failure; states she has a lot more swelling in the legs and has had trouble breathing when trying to lay in bed to sleep; weight today = 247lbs (up almost 25lbs since 2023). Message sent to Ayan Wallis CNP with heart failure clinic. Patient states she has been speaking to Ayan via telephone regarding weight gain. 07/26/24: Pt with increased pain, drainage, redness noted to bilateral lower legs. New wounds present on bilateral lower legs. Pt stated that she did not come to appointment last week with Dr. Reyes due to not feeling well, stated that her legs were giving her issues. Discussed with pt the importance of not waiting to be seen if her Dr. Reyes would like pt to go to the ER. LEFT LOWER LEG WOUNDS: WOUND # 37 LOCATION: Left lower leg now circumferential (wounds #31 & 32 are now combined and renamed wound #37 on 07/05/24) L: 38.0 cm x W: 30.5 cm x D: 0.3 cm Cleansed with: NS, Hibiclens Applied to naya-wound skin: N/A Applied to wound bed: adaptic Covered and secured with: ABD pads, Kerlix, Tape Other: stockinet WOUND # 36 LOCATION: Left hallux nail bed (NEW 07/05/24 - Left hallux nail loose, thickened, dark in color - patient states it has been bleeding at home, toe nail removed today with a blood blister noted beneath the nail L: 0.9 cm x W: 0.8 cm x D: eschar Cleansed with: NS, Hibiclens, betadine Applied to naya-wound skin: N/A Applied to wound bed: N/A Covered and secured with: N/A Other: stockinet WOUND # 41 LOCATION: Left Medial Ankle (NEW 07/26/24 L: 1.7 cm x W: 2.3 cm x D: eschar WOUND # 42 LOCATION: Left Achilles (NEW 07/26/24 L: 5.0 cm x W: 1.8 cm x D: 0.3 cm WOUND # 43 LOCATION: Left Dorsal Foot - Cluster (NEW 07/26/24 L: 8.2 cm x W: 11.0 cm x D: 0.2 cm Cleansed with: NS, Hibiclens Applied to naya-wound skin: N/A Applied to wound bed: adaptic Covered and secured with: ABD pads, Kerlix, Tape Other: stockinet RIGHT LOWER LEG WOUNDS: WOUND # 39 LOCATION: Right Lower Leg Circumferential L: 11.8 cm x W: 22.0 cm x D: 0.1 cm WOUND # 40 LOCATION: Right Lower leg Superior Medial L: 5.2 cm x W: 5.5 cm x D: 0.2 cm Cleansed with: NS, Hibiclens Applied to naya-wound skin: N/A Applied to wound bed: adaptic Covered and secured with: ABD pads, Kerlix, Tape Other: stockinet COMPRESSION: N/A - Dr. Reyes would like pt to be seen by vascular while in hospital SPECIAL NEEDS: Coordination of care Report called to ER, call to [employer] regarding sorting livestock worker extension Emotional support N/A OR set-up N/A Yarn Examiner N/A Incontinence needs N/A DME company: ordered 03/01/24 [employer] wraps, Supplies ordered 06/07/2024 x 30 days with 2 refills DISCHARGED in stable condition to: ER with nephew Stephen PLAN/ORDERS: Follow-up in the Wound Center with Dr Reyes when discharged from hospital Contact the [facility] podiatry office regarding a 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 Continue wearing Farrow wraps for compression May consider HBOT again in the future Be sure to check your weight daily and follow up with HF clinic as scheduled. EDUCATION: Discussed with pt the need to be seen when legs are looking and feeling worse. The patient/family was instructed how to cleanse the wound(s). Visual demonstration on how to apply the dressing with teach back method. Signs & symptoms of infection were reviewed: Increased redness, swelling, pain, green/yellow drainage, fever and/or chills would all need to be evaluated by a Physician. Patient received typed home-going wound care instructions and has expressed intent to comply. OTHER EDUCATION: Education performed regarding lymphedema/edema: Elevation of extremity above the heart for 30 minutes three times daily and as needed Exercise such as writing the ABC's with your toes in the air, walking and/or calf pumps Wearing compression as ordered by provider Diet controlling of sodium as instructed by provider Use of medication to help control edema. UNIVERSAL PROTOCOL / SAFETY CHECKLIST Procedure to be Performed sharp debridement of lower leg wounds Sign In: 1030 A Moment of CARE was completed. Personnel directly involved with the procedure wore the appropriate PPE (Personal Protective Equipment). Patient/Surrogate Stated/Verified: PATIENT VERIFIED(optional for EMERGENT procedures): Patient name, Date of , Relevant allergies, and The intended procedure Time Out Communication: 1035 Intended patient and procedure match the source documents. Consent documented and matches the intended procedure. No relevant labs, photos, and/or imaging studies were applicable for review. Sign Out: 1050 SIGN OUT (optional for EMERGENT procedures): All instruments, equipment, possible retained foreign bodies accounted for. Leanna HarrisonRN/TR Current HBOT Status: Active or Complete - see screening below WOUND CENTER HYPERBARIC OXYGEN THERAPY SCREENING 1. Is the patient diabetic? (If No, skip to question 5) Yes 2. Does the patient have a lower extremity wound? Yes 3. Is there exposed/involved tendon or bone? NO 4. Has the wound been present for 30 days? Yes If Yes to ALL questions above, consult the Hyperbaric Center 5. Has the patient been diagnosed with osteomyelitis? No 6. Has the patient had a previous skin graft or flap at the wound? No 7. Has the patient had or been offered vascular intervention/evaluation? No 8. Does the patient have a wound at an amputation site? Yes 9. Has the patient had radiation therapy at the site of the problem? No If Yes to ANY of questions 5-9, consult the Hyperbaric Center 07/05/24 Dr. Benitez in to examine and discuss possible resumption of HBOT. Patient is not a candidate for HBOT at this time. Leanna Harrison RN/TR [facility] 07-26-2024 Nurse Note Nursing Documentation Pertinent Medical History: DM2, HTN, venous insufficiency, & heart failure Wound Etiology according to patient: leg swelling & wounds February 2024 Pt had right great toe amputation June 18, 2023 Patient arrived via: Ambulatory with [facility] Care Company/Nursing Facility: N/A Consent captured for debridement per Dr. Berny Reyes DPM and linda until 2024 Consent captured for debridement per Dr. Hu Pickard DPM and linda until September 2024 Anticoagulant Therapy: ASA 81mg ACTIVE CARE PER PROVIDER: Giovanni HAM, Hu Pickard DPM, & Alfredo Moore DPM Wounds 1-30 previously closed WOUND # 34 LOCATION: Right Distal Medial Lower Leg-CLOSED 03/13/24 (February 2024) CLOSED 03/13/24, closed 03/29/24 Application Dates: Grafts are complete 01/07/2023 Apligraf 01/15/2023 Apligraf 01/21/2023 Apligraf 01/27/2023 Apligraf 02/04/2023 Apligraf WOUND # 35 LOCATION: Right Posterior Lower Leg (February 2024) Closed 03/29/24, closed 04/12/24 WOUND # 31 LOCATION: Left Anterior Lower Leg (February 2024) 07/05/24: combined with wound #32 WOUND # 32 LOCATION: Left Posterior Lower Leg Cluster (February 2024) WOUND # 33 LOCATION: Right Medial Lower Leg (February 2024) WOUND # 34 LOCATION: Right Posterior Inferior Leg (May 2024) #33 & #34 combined and renamed wound #38 WOUND ASSESSMENT: Refer to Provider's Wound Assessment Note VASCULAR ASSESSMENT BY PROVIDER: See provider wound assessment note CHF History: Yes as of February 2022, Dr. Sadler in Cardiology EDEMA: Right Foot: trace Right Ankle: trace Right Calf: 1+ Left Foot: trace Left Ankle: trace Left Calf: 3+ Other: N/A MEASUREMENTS: in cm Right Calf: 33.5 Right Ankle: 21.9 Left Calf: 33.5 Left Ankle: 21.5 Length: 43.0 WOUND PHOTOGRAPHY: YES x 6 (last taken 07/26/24) DEBRIDEMENT PROCEDURE BY PROVIDER: Anesthetic Used: 2% lidogel applied by Jarrett Kenny RN Other procedure: n/a Specimen collected: wound culture taken from left medial lower leg WOUND TREATMENT PER MD ORDER: Wounds cleansed by mechanical debridement to allow provider to visualize wound base 07/05/24: Patient reports wosening heart failure; states she has a lot more swelling in the legs and has had trouble breathing when trying to lay in bed to sleep; weight today = 247lbs (up almost 25lbs since 2023). Message sent to Ayan Wallis CNP with heart failure clinic. Patient states she has been speaking to Ayan via telephone regarding weight gain. 07/26/24: Pt with increased pain, drainage, redness noted to bilateral lower legs. New wounds present on bilateral lower legs. Pt stated that she did not come to appointment last week with Dr. Reyes due to not feeling well, stated that her legs were giving her issues. Discussed with pt the importance of not waiting to be seen if her Dr. Reyes would like pt to go to the ER. LEFT LOWER LEG WOUNDS: WOUND # 37 LOCATION: Left lower leg now circumferential (wounds #31 & 32 are now combined and renamed wound #37 on 07/05/24) L: 38.0 cm x W: 30.5 cm x D: 0.3 cm Cleansed with: NS, Hibiclens Applied to naya-wound skin: N/A Applied to wound bed: adaptic Covered and secured with: ABD pads, Kerlix, Tape Other: stockinet WOUND # 36 LOCATION: Left hallux nail bed (NEW 07/05/24 - Left hallux nail loose, thickened, dark in color - patient states it has been bleeding at home, toe nail removed today with a blood blister noted beneath the nail L: 0.9 cm x W: 0.8 cm x D: eschar Cleansed with: NS, Hibiclens, betadine Applied to naya-wound skin: N/A Applied to wound bed: N/A Covered and secured with: N/A Other: stockinet WOUND # 41 LOCATION: Left Medial Ankle (NEW 07/26/24 L: 1.7 cm x W: 2.3 cm x D: eschar WOUND # 42 LOCATION: Left Achilles (NEW 07/26/24 L: 5.0 cm x W: 1.8 cm x D: 0.3 cm WOUND # 43 LOCATION: Left Dorsal Foot - Cluster (NEW 07/26/24 L: 8.2 cm x W: 11.0 cm x D: 0.2 cm Cleansed with: NS, Hibiclens Applied to naya-wound skin: N/A Applied to wound bed: adaptic Covered and secured with: ABD pads, Kerlix, Tape Other: stockinet RIGHT LOWER LEG WOUNDS: WOUND # 39 LOCATION: Right Lower Leg Circumferential L: 11.8 cm x W: 22.0 cm x D: 0.1 cm WOUND # 40 LOCATION: Right Lower leg Superior Medial L: 5.2 cm x W: 5.5 cm x D: 0.2 cm Cleansed with: NS, Hibiclens Applied to naya-wound skin: N/A Applied to wound bed: adaptic Covered and secured with: ABD pads, Kerlix, Tape Other: stockinet COMPRESSION: N/A - Dr. Reyes would like pt to be seen by vascular while in hospital SPECIAL NEEDS: Coordination of care Report called to ER, call to [facility] regarding sorting livestock worker extension Emotional support N/A OR set-up N/A Yarn Examiner N/A Incontinence needs N/A DME company: ordered 03/01/24 Farrow wraps, Supplies ordered 06/07/2024 x 30 days with 2 refills DISCHARGED in stable condition to: ER with venita Mitchell PLAN/ORDERS: Follow-up in the Wound Center with Dr Reyes when discharged from hospital Contact the [facility] podiatry office regarding a 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 Continue wearing Farrow wraps for compression May consider HBOT again in the future Be sure to check your weight daily and follow up with HF clinic as scheduled. EDUCATION: Discussed with pt the need to be seen when legs are looking and feeling worse. The patient/family was instructed how to cleanse the wound(s). Visual demonstration on how to apply the dressing with teach back method. Signs & symptoms of infection were reviewed: Increased redness, swelling, pain, green/yellow drainage, fever and/or chills would all need to be evaluated by a Physician. Patient received typed home-going wound care instructions and has expressed intent to comply. OTHER EDUCATION: Education performed regarding lymphedema/edema: Elevation of extremity above the heart for 30 minutes three times daily and as needed Exercise such as writing the ABC's with your toes in the air, walking and/or calf pumps Wearing compression as ordered by provider Diet controlling of sodium as instructed by provider Use of medication to help control edema. UNIVERSAL PROTOCOL / SAFETY CHECKLIST Procedure to be Performed sharp debridement of lower leg wounds Sign In: 1030 A Moment of CARE was completed. Personnel directly involved with the procedure wore the appropriate PPE (Personal Protective Equipment). Patient/Surrogate Stated/Verified: PATIENT VERIFIED(optional for EMERGENT procedures): Patient name, Date of , Relevant allergies, and The intended procedure Time Out Communication: 1035 Intended patient and procedure match the source documents. Consent documented and matches the intended procedure. No relevant labs, photos, and/or imaging studies were applicable for review. Sign Out: 1050 SIGN OUT (optional for EMERGENT procedures): All instruments, equipment, possible retained foreign bodies accounted for. Leanna Harrison RN/TR Current HBOT Status: Active or Complete - see screening below [facility] HYPERBARIC OXYGEN THERAPY SCREENING 1. Is the patient diabetic? (If No, skip to question 5) Yes 2. Does the patient have a lower extremity wound? Yes 3. Is there exposed/involved tendon or bone? NO 4. Has the wound been present for 30 days? Yes If Yes to ALL questions above, consult the [facility]ic Center 5. Has the patient been diagnosed with osteomyelitis? No 6. Has the patient had a previous skin graft or flap at the wound? No 7. Has the patient had or been offered vascular intervention/evaluation? No 8. Does the patient have a wound at an amputation site? Yes 9. Has the patient had radiation therapy at the site of the problem? No If Yes to ANY of questions 5-9, consult the Hyperbaric Center 07/05/24 Dr. Benitez in to examine and discuss possible resumption of HBOT. Patient is not a candidate for HBOT at this time. Leanna Harrison RN/TR documented in this encounter [facility] 07-25-2024 Note Patient Outreach (IN [facility]) SHADE BRAMBILA ([id number]) 1960 F Date Time Provider Department 07/25/24 ELDON GILL During your visit today, we recorded the following information about you: Allergies As of Date: 07/25/2024 Noted Allergy Reaction AMOXICILLIN 11/26/2022 16 - Unknown Comments: Patient does not remember reaction SILICONE 06/22/2024 2 - Rash 9 - Itching Comments: Dressing with silicone border caused inflammation where the bandage was placed CODEINE 09/26/2022 5 - Intolerance Comments: Patient states Makes her Hyper MORPHINE 08/17/2023 5 - Intolerance Comments: Difficulty waking up / groggy Date Reviewed: 07/07/2024 Reviewed by: Ayan Wallis APRN.HEEL CURVER - Fully Assessed Visit Diagnoses:Type 2 diabetes mellitus with proliferative retinopathy, with long-term current use of insulin (HCC) [E11.3599, Z79.4] Mixed hyperlipidemia [E78.2] Order(s):ALBUMIN/CREATININE RATIO, URINE [SQUACR] Order #: [id number] FUTURE LIPID PANEL BASIC [SQLIPB] Order #: [id number] FUTURE Prescriptions as of 07/28/2024 - empagliflozin (JARDIANCE) 25 mg tablet TAKE 1 TABLET BY MOUTH EVERY DAY WITH BREAKFAST - oxyCODONE IR (ROXICODONE) 5 mg immediate release tablet Take 5 mg by mouth every 12 hours as needed for pain. - metOLazone (ZAROXOLYN) 2.5 mg tablet Take 1 tablet by mouth once daily. - potassium chloride (K-TAB) 10 mEq tablet Take 1 tablet by mouth once daily. - metFORMIN (GLUCOPHAGE) 1,000 mg tablet Take 1 tablet by mouth daily with lunch. - insulin regular human, CONCENTRATED 500 UNIT/ML, (HUMULIN R) 500 unit/mL (3 mL) inpn 40 units sc at breakfast, 100 units at lunch, 70 units at supper. - ACCU-CHEK JOSE PLUS TEST STRP test strip USE TO TEST BLOOD GLUCOSE 3 TIMES DAILY - enalapril (VASOTEC) 20 mg tablet Take 0.5 tablets by mouth two times a day. - atorvastatin (LIPITOR) 80 mg tablet take 1 tablet by mouth every day - furosemide (LASIX) 20 mg tablet Take 20 mg by mouth once daily. 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 - aspirin, enteric coated (ASPIRIN, ENTERIC COATED) 81 mg EC tablet Take 81 mg by mouth once daily. - fluticasone (FLONASE) 50 mcg/actuation nasal spray Use 2 Sprays in each nostril once daily. - cyanocobalamin, vitamin B-12, 1,000 mcg/mL kit 1,000 mcg by INJECTION(UNSPECIFIED PARENTERAL ROUTES) route once every month. - CPAP/BIPAP/OTHER New set up: Settings 5 - 15 cm H2O, suitable mask per pt preference, chin strap, head gear, humidity, tubing, lifetime supplies. G47.33 NELLY - Blood Pressure Monitor Please monitor blood pressure 1-2 hours after taking morning medications. - Zinc 50 mg tab Take 50 mg by mouth once daily. - multivit,thx,calcium,iron,mins (MULTIVITAMIN AND MINERAL ORAL) Take 1 tablet by mouth once daily. - ibuprofen (ADVIL ORAL) Take 3 tablets by mouth as needed. - FLUoxetine (PROZAC) 40 mg capsule Take by mouth q 24 HR. - lancets (ONE TOUCH DELICA) 33 gauge USE TO BLOOD GLUCOSE 3 TIMES DAILY. INSULIN DEPENDENT E11.3299, E11.65, Z79.4 - insulin needles, DISPOSABLE, (BD INSULIN PEN NEEDLE UF) 31 gauge x 5/16 FOUR DAILY FOR INSULIN INJECTIONS. - Blood-Glucose Meter [facility] Use to test blood glucose 3 times daily. Insulin Dependent E11.3299, E11.65, Z79.4 - Cholecalciferol, Vitamin D3, 50 mcg (2,000 unit) cap Take 1 tablet by mouth once daily. Facility-Administered Medications as of 07/28/2024 - NaCl 0.9% iv flush bag - cefepime 2 g in D5W 100 mL Vial-Bag (MAXIPIME) - oxyCODONE IR 5 mg tab(s) (ROXICODONE) - aspirin, enteric coated 81 mg tab(s) - atorvastatin 80 mg tab(s) (LIPITOR) - enalapril 10 mg tab(s) (VASOTEC) - furosemide 20 mg tab(s) (LASIX) - FLUoxetine 40 mg cap(s) (PROzac) - vancomycin 1.5 g in NaCl 0.9% 250 mL (VANCOCIN) - acetaminophen 650 mg tab(s) (TYLENOL) - heparin 5,000 Units injection - dextrose 40 % 15 g - glucagon 1 mg injection - dextrose 10% iv bolus - vancomycin dosing and monitoring per pharmacy - insulin regular human (CONCENTRATED 500 UNIT/ML) 30 Units pen (HumuLIN R) - insulin regular human (CONCENTRATED 500 UNIT/ML) 30 Units pen (HumuLIN R) - insulin regular human (CONCENTRATED 500 UNIT/ML) 30 Units pen (HumuLIN R) - insulin lispro injection (rapid acting) (ADMElog) Problem List As Of Date 07/25/2024 Noted Resolved Type 2 diabetes mellitus with proliferative ret*08/08/1999 Mixed hyperlipidemia [E78.2] 08/08/2012 Insulin long-term use (HCC) [Z79.4] 08/09/2012 12/12/2018 Primary hypertension [I10] 05/16/2013 Depression [F32.A] 05/16/2013 Vitamin D deficiency [E55.9] 01/05/2017 Chest pain [R07.9] 04/01/2017 03/10/2019 Obesity, Class II, BMI 35-39.9 [E66.812] 02/05/2020 02/10/2021 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 [facility] 07-21-2024 Telephone encounter Note Prescription Refill Information The patient has been identified by name and date of : Yes Caregiver verified no other encounters exist for this prescription request: Yes Caregiver confirmed with patient/requestor that no other refills are due, in the near future, with this provider at this time: Yes The last office visit in the department: 04/17/2024 Does the patient have a future office visit with this provider/department: Yes. 10/25/2024 Requested Prescriptions Pending Prescriptions Disp Refills JARDIANCE 25 mg tablet [Pharmacy Med Name: JARDIANCE 25 MG TABLET] 90 tablet 3 Sig: TAKE 1 TABLET BY MOUTH EVERY DAY WITH BREAKFAST Rimma Laws MA July 21, 2024 9:41 AM [facility] 07-21-2024 Miscellaneous Notes Prescription Refill Information The patient has been identified by name and date of : Yes Caregiver verified no other encounters exist for this prescription request: Yes Caregiver confirmed with patient/requestor that no other refills are due, in the near future, with this provider at this time: Yes The last office visit in the department: 04/17/2024 Does the patient have a future office visit with this provider/department: Yes. 10/25/2024 Requested Prescriptions Pending Prescriptions Disp Refills JARDIANCE 25 mg tablet [Pharmacy Med Name: JARDIANCE 25 MG TABLET] 90 tablet 3 Sig: TAKE 1 TABLET BY MOUTH EVERY DAY WITH BREAKFAST Rimma Laws MA July 21, 2024 9:41 AM documented in this encounter [facility] 07-20-2024 Telephone encounter Note Received call from patient requesting refill of oxycodone. Communicated with patient that this RN will discuss with Dr. Reyes and call her back. Called patient back and communicated that Dr. Reyes is sending a prescription for Oxycodone every 12 hours for 7 days. Communicated this will provide enough until her appointment next Wed. Patient confirmed appointment and appreciated the refill. [facility] 07-20-2024 Miscellaneous Notes Received call from patient requesting refill of oxycodone. Communicated with patient that this RN will discuss with Dr. Reyes and call her back. Called patient back and communicated that Dr. Reyes is sending a prescription for Oxycodone every 12 hours for 7 days. Communicated this will provide enough until her appointment next Wed. Patient confirmed appointment and appreciated the refill. documented in this encounter [facility] 07-14-2024 Telephone encounter Note Patient called to report weight decrease to 238 lbs today. She was seen in office on Wednesday and was given IV lasix in office. She was instructed to take metolazone for 2 days thereafter. Instructed her to resume regular lasix schedule today and through the weekend. On Wednesday and Wednesday she may take 2.5 mg metolazone. She is to call office on to report weight and symptoms. Discussed weight gain of 3-4 lbs in 1-2 days over the weekend, she may start taking metolazone for two days. She is to also take potassium on days she takes her metolazone. She is also to hold her enalapril on the days she takes metolazone to prevent hypotension. Patient verbalized plan of care back to this FINANCIAL REPORTING ANALYST. All questions answered at this time. Ayan Wallis APRN.CNP [facility] 07-14-2024 Miscellaneous Notes Patient called to report weight decrease to 238 lbs today. She was seen in office on Wednesday and was given IV lasix in office. She was instructed to take metolazone for 2 days thereafter. Instructed her to resume regular lasix schedule today and through the weekend. On Wednesday and Wednesday she may take 2.5 mg metolazone. She is to call office on to report weight and symptoms. Discussed weight gain of 3-4 lbs in 1-2 days over the weekend, she may start taking metolazone for two days. She is to also take potassium on days she takes her metolazone. She is also to hold her enalapril on the days she takes metolazone to prevent hypotension. Patient verbalized plan of care back to this FINANCIAL REPORTING ANALYST. All questions answered at this time. Ayan Wallis APRN.CNP documented in this encounter [facility] 07-11-2024 History of Presen t illness Narrative Images from the original note were not included. [facility] [place] [facility] OUTPATIENT VISIT DATE July 11, 2024 OUTPATIENT VISIT TYPE ESTABLISHED PRIMARY CARE PHYSICIAN: Eldon Gill DO CHIEF COMPLAINT: Patient presents with: Breathing Problem Leg Edema HISTORY OF PRESENT ILLNESS: Shade Brambila is a 64 year old female who presents today for a follow-up visit in the Heart Failure Clinic. The patient was last seen in office 07/07. The following changes were made at that time: 30 mg IV lasix. Patient has had 3 hospitalizations and/or emergency room encounters in the last 12 months. Most recent ED visit was from 11/28 for management of hypertension and heart failure symptoms. Blood pressure upon arrival to ED was 195/95 mmHg. NT BNP was elevated >5000. She was treated with IV lasix 40 mg. She was discharged home on 20 mg lasix daily. Patient contacted office this morning reporting weight of 240.2 lbs. She is down 2 lbs since her office visit on Saturday 07/07. Suggested another dose of IV lasix in office today. Today, the patient reports continued shortness of breath. She presents to appt today for IV lasix as follow up from in office lasix 4 days ago. Patient reports feeling slight improvement after dose of IV lasix and additional days of oral lasix however, states last evening she noted shortness of breath when laying flat. Of note, patient did receive scale from HF clinic last week in which she states she is able to stand on comfortably and get a weight. Reports shortness of breath on exertion. Denies chest pain, fever, chills, dizziness, lightheadedness. Does endorse leg swelling. Of note, received oxycodone for leg from her judicial clerk. She has take 1 tablet on Wednesday, Sat and then again Wednesday evening. IMPRESSION: NYHA Functional Class: II Stage: C heart failure Shade Brambila is a 64 year-old female who presents to the Heart Failure Clinic for follow up. Appears hypervolemic on examination with swelling to bilateral lower legs. Blood pressure is soft in office thus will not be able to administer IV lasix. Will sent script for 2.5 mg metolazone to take for 2 days 30 minutes prior to her furosemide. Will also write for potassium tablets as she has been taking lasix daily. Furthermore, instructed her to hold her enalapril for 2 days to help prevent further hypotension. Instructed patient to monitor her blood pressure. Red flags reviewed on when to go to ER. Monitor sodium and fluid intake. Advised her to call office with questions. Discussed possible hospital admission if weight does not decrease. Labs to be drawn within a week to assess kidney function and potassium levels. Reviewed plan of care with patient. All questions answered at this time. PLAN AND RECOMMENDATIONS: 1. Chronic heart failure with preserved ejection fraction (HCC) - ICD9: 428.9, ICD10: I50.32 (primary diagnosis) - daily weights, call office if weight increases 3-4 lbs in a 1-4 day period -2 gm low sodium diet -activity as tolerated, rest breaks as needed -unable to tolerate spironolactone due to hyperkalemia -25 mg jardiance once a day -repeat echo in future -bariatric scale given to patient on 07/07 -BMP to assess kidney function -2.5 metolazone x 2 days -potassium 10 mEq daily -follow up in HF Clinic 12/14 or sooner if needed 2. Primary hypertension - ICD9: 401.9, ICD10: I10 -BP suboptimal during visit 105/53 mmHg -encourage DASH/low sodium diet -encourage exercise with rest breaks as needed -goal BP <130/80 mmHg -continue home BP monitoring 3. Mixed hyperlipidemia - ICD9: 272.2, ICD10: E78.2 -continue atorvastatin -last lipid panel 08/15/2022; LDL 117 HDL 55, total 184 Follow up appointment with Dr. Sadler September 12, 2024 PAST MEDICAL HISTORY Diagnosis Date Charcot left foot due to diabetes mellitus (HCC) 05/2013 subsequent to left foot fracture Chronic ulcer of great toe of right foot (HCC) 06/14/2023 Congestive heart failure (HCC) Depression Diabetes (HCC) Diabetic ulcer of posterior right heel (HCC) 02/06/2020 Endometrial cancer (HCC) Foot fracture, left 05/2013 Charcot neuroarthropathy HTN (hypertension) Obesity NELLY (obstructive sleep apnea) Renal disorder on vasotec to protect kidneys rt diabetes since 1998. Vitamin D deficiency 01/05/2017 PAST SURGICAL HISTORY Procedure Laterality Date AMPUTATION TOE,MT-P JT Right 07/2022 Hallux AMPUTATION TOE,MT-P JT Right 10/2023 removal of remaining right toes DILATION & CURETTAGE DX&/THER NONOBSTETRIC x3 EXTENSIVE HAND SURGERY Dupuytren contracture TONSILLECTOMY HX TOTAL ABDOM HYSTERECTOMY 08/2023 with BSO Social History Tobacco Use Smoking status: Never Passive exposure: Never Smokeless tobacco: Never Vaping Use Vaping status: Never Used Substance Use Topics Alcohol use: Yes Comment: Occ - 3 glasses of wine a year Drug use: No Family History Problem Relation Age of Onset Hypertension Mother other (polycystic kidney disease) Mother Heart Father CHF Hypertension Father Diabetes Brother other (testicular cancer) Brother Coronary Artery Disease Brother MD and at age 45 other (CHF) Paternal Grandmother Cancer Paternal Aunt breast [place] ALLERGIES Allergen Reactions Amoxicillin Unknown Patient does not remember reaction Silicone Rash, Itching Dressing with silicone border caused inflammation where the bandage was placed Codeine Intolerance Patient states Makes her Hyper Morphine Intolerance Difficulty waking up / groggy CURRENT MEDICATIONS: Current Outpatient Medications Medication Sig Dispense Refill metFORMIN (GLUCOPHAGE) 1,000 mg tablet Take 1 tablet by mouth daily with lunch. 90 tablet 3 insulin regular human, CONCENTRATED 500 UNIT/ML, (HUMULIN R) 500 unit/mL (3 mL) inpn 40 units sc at breakfast, 100 units at lunch, 70 units at supper. 42 mL 3 honey (MEDIHONEY) 100 % pste Apply thin layer of medihoney to bilateral lower leg wounds. Change daily. Patient should start on March 31, 2024. 44 mL 2 ACCU-CHEK JOSE PLUS TEST STRP test strip USE TO TEST BLOOD GLUCOSE 3 TIMES DAILY 300 Strip 1 enalapril (VASOTEC) 20 mg tablet Take 0.5 tablets by mouth two times a day. atorvastatin (LIPITOR) 80 mg tablet take 1 tablet by mouth every day 90 tablet 3 furosemide (LASIX) 20 mg tablet Take 20 mg by mouth once daily. ascorbic acid (VITAMIN C ORAL) Take by mouth. aspirin, enteric coated (ASPIRIN, ENTERIC COATED) 81 mg EC tablet Take 81 mg by mouth once daily. fluticasone (FLONASE) 50 mcg/actuation nasal spray Use 2 Sprays in each nostril once daily. (Patient taking differently: Use 2 Sprays in each nostril as needed.) 1 Each 3 cyanocobalamin, vitamin B-12, 1,000 mcg/mL kit 1,000 mcg by INJECTION(UNSPECIFIED PARENTERAL ROUTES) route once every month. JARDIANCE 25 mg tablet take 1 tablet by mouth every day with breakfast (Patient taking differently: Take 25 mg by mouth daily with lunch.) 90 tablet 3 CPAP/BIPAP/OTHER New set up: Settings 5 - 15 cm H2O, suitable mask per pt preference, chin strap, head gear, humidity, tubing, lifetime supplies. G47.33 NELLY 1 Each 0 Blood Pressure Monitor Please monitor blood pressure 1-2 hours after taking morning medications. 1 Kit 0 Zinc 50 mg tab Take 50 mg by mouth once daily. multivit,thx,calcium,iron,mins (MULTIVITAMIN AND MINERAL ORAL) Take 1 tablet by mouth once daily. ibuprofen (ADVIL ORAL) Take 3 tablets by mouth as needed. FLUoxetine (PROZAC) 40 mg capsule Take by mouth q 24 HR. lancets (ONE TOUCH DELBruin Biometrics) 33 gauge USE TO BLOOD GLUCOSE 3 TIMES DAILY. INSULIN DEPENDENT E11.3299, E11.65, Z79.4 300 Each 3 insulin needles, DISPOSABLE, (BD INSULIN PEN NEEDLE UF) 31 gauge x 5/16 FOUR DAILY FOR INSULIN INJECTIONS. 400 Each 1 Blood-Glucose Meter misc Use to test blood glucose 3 times daily. Insulin Dependent E11.3299, E11.65, Z79.4 1 Each 0 Cholecalciferol, Vitamin D3, 50 mcg (2,000 unit) cap Take 1 tablet by mouth once daily. Current Facility-Administered Medications Medication Dose Route Frequency Provider Last Rate Last Admin cyanocobalamin 1,000 mcg injection 1,000 mcg INTRAMUSCULAR q 4 WEEKS Eldon Gill DO 1,000 mcg at 07/07/24 1351 REVIEW OF SYSTEMS: GENERAL: Positive for:Weight gain HEENT: Positive for:Glasses NECK: Negative for: Swelling, Pain, Stiffness RESPIRATORY: Positive for: Shortness of breath GASTROINTESTINAL: Negative for: Trouble swallowing, Heartburn, Change in bowel habits, Blood in stool, Dark black stools MUSCULOSKELETAL: Positive for: Muscle or joint pain NEUROLOGIC/PSYCHIATRIC: Negative for: Weakness, Paralysis, Numbness, Tingling, Tremor, Nervousness or anxiety, Depressed mood, Memory loss SKIN: Negative for: Rash, Itching; + ulcers to BLLE HEMATOLOGICAL/LYMPHATIC: Positive for: Easy bruising and Easy bleeding ENDOCRINE: Negative for: Heat or Cold Intolerance, Excessive Sweating, Frequent Urination, Frequent Thirst PHYSICAL EXAMINATION: There were no vitals filed for this visit. General: Normal exam, no distress, overweight, using cane Skin: No clubbing, no cyanosis. Eyes: Extra ocular movements intact Neck: Neck veins are not distended Lungs: Chest clear to auscultation Heart: Rhythm: regular rate and rhythm, Rate: normal, no murmur Abdomen: Normal Extremities: edema: 1+ Peripheral Pulses: Normal CARDIOVASCULAR MEDICINE TESTING: Latest Reference Range & Units 01/11/24 14:19 Sodium 136 - 144 mmol/L 137 Potassium 3.7 - 5.1 mmol/L 5.3 (H) Chloride 97 - 105 mmol/L 103 CO2 22 - 30 mmol/L 26 BUN 7 - 21 mg/dL 52 (H) Creatinine 0.58 - 0.96 mg/dL 1.05 (H) Glucose 74 - 99 mg/dL 204 (H) Calcium 8.5 - 10.2 mg/dL 9.6 Anion Gap 9 - 18 mmol/L 8 (L) NT Pro BNP <125 pg/mL 954 (H) eGFR >=60 mL/min/1.73m 60 (H): Data is abnormally high (L): Data is abnormally low NM Stress Test 01/06/2024: CONCLUSIONS: 1. SPECT Perfusion Study: Normal. 2. There is no scintigraphic evidence for inducible ischemia. 3. No evidence of scarred myocardium. 4. Left ventricle is normal in size. The left ventricle systolic function is normal. 5. This is a low risk scan. Gated Stress IR:3D LVEF % 70 Echocardiogram 02/2022: I have personally reviewed the Laboratory Testing and Echocardiogram. COUNSELING: We discussed the following non-pharmacological measures during this visit: Smoking and alcohol abstinence/cessation, if applicable Dietary and medication compliance Monitoring daily weights and blood pressures Exercise regimen When to call our office Heart Failure Education Booklet: Previously given. Discussed red flags and when to call MD/RN BABY or go to ED. Medications reconciled at end of visit: yes I spent 25 minutes in this visit, with more than 50% of the time devoted to patient counseling. SIGNATURE: Ayan Wallis APRN.CNP PATIENT NAME: Shade Brambila DATE: July 11, 2024 TIME: 1300 documented in this encounter [facility] 07-11-2024 Note [facility] 07-11-2024 Instructions Ayan Wallis APRN.CNP - 07/11/2024 11:44 AM EST Continue current medications as prescribed. You may take 40 mg lasix this evening around 5 or 6 PM IF your blood pressure is above 110/55 mmHg. Script sent for 2.5 mg metolazone. HOLD your morning enalapril on Wednesday and to allow for better blood pressure control. You can resume this Wednesday. Wednesday and , please take 2.5 mg metolazone 30 minutes before your take 20 mg lasix. In the afternoon at least 6 hours from morning lasix, please check your blood pressure. If blood pressure is above 110/55 mmHg, please take additional 40 mg lasix. If not above this, then please only take 20 mg lasix. On Wednesday and , please take 2 potassium tablets. Resume one potassium tablet starting on Wednesday. Call office on Wednesday. BMP to be drawn within one week. 2. Weigh yourself daily. Call me if your weight increases by 3-4 pounds in a 1-4 day period of time. 3. Continue low salt (2000 mg per day) diet. 4. Be as active as you are able. If you get tired, just stop and rest for a while. 5. Will call office to follow up. If you have any question or concern, you can call me at [phone]. documented in this encounter [facility] 07-10-2024 Note [facility] 07-10-2024 History of Presen t illness Narrative Date of Visit: 07/05/2024 Problem list reviewed. CHIEF COMPLAINT: check B/L lower leg wounds DM II A1c 8.3 (10/07/23) DLS 02/08/24 HISTORY OF PRESENT ILLNESS: Patient last seen 06/22/24. She has new issue LEFT great toenail. noticed drainage and bleeding from LEFT great toe wounds have worsened B/L LE with increased drainage to posterior aspect of B/L lower leg. Here today for B/L lower leg wound check. She states that she is up 25 pounds total than her baseline. she is having trouble breathing with activity. she is wearing her farrow wraps today Denies N/V/F/C/D/SOB/CP/LP. She relates she can't feel feet well due to neuropathy. She has numbness and toe amputations. Referred by Dr. Dasilva. 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 Right 2nd toe amputation and hallux I&D 10/28/22. Hx s/p RT toe amp 3,4,5 (DOS 10/14/23) DME DM inserts 08/24/23 rx circade wraps 08/14/22 CURRENT MEDICATIONS: Percocet Oral Tablet 5-325 MG (10/27/2023) Take 1 tablet every 6 hours as needed for 4 day(s) Clindamycin HCl Oral Capsule 300 MG (11/26/2022) TAKE 1 CAPSULE BY MOUTH EVERY 8 HOURS FOR 7 DAYS. oxyCODONE-Acetaminophen Oral Tablet 5-325 MG (10/28/2022) Ketorolac Tromethamine Ophthalmic Solution 0.5 % (04/26/2023) Accu-Chek Jose Plus In Vitro Strip (09/23/2022) Sulfamethoxazole-Trimethoprim Oral Tablet 800-160 MG (06/24/2023) Atorvastatin Calcium Oral Tablet 80 MG (06/13/2023) miSOPROStol Oral Tablet 200 MCG (06/15/2023) TAKE 2 TABLETS BY MOUTH THE DAY PRIOR TO PROCEDURE AT BEDTIME WITH FOOD Fluticasone Propionate Nasal Suspension 50 MCG/ACT (12/15/2022) USE 2 SPRAYS IN EACH NOSTRIL DAILY X1 WEEK,THEN 1 SPRAY IN EACH NOSTRIL DAILY THEREAFTER NEEDED Nitrofurantoin Monohyd Macro Oral Capsule 100 MG (02/08/2023) Cephalexin Oral Capsule 500 MG (09/26/2022) Doxycycline Hyclate Oral Capsule 100 MG (11/10/2022) Fluconazole Oral Tablet 200 MG (03/20/2024) TAKE 1 TABLET EVERY DAY FOR 21 DAYS Bactrim DS Oral Tablet 800-160 MG (06/24/2023) Take 1 tablet twice a day for 10 day(s) Cipro Oral Tablet 500 MG (06/11/2023) Take 1 tablet twice a day for 7 day(s) Doxycycline Hyclate Oral Tablet 100 MG (06/08/2023) Take 1 tablet twice a day for 7 day(s) Ciprofloxacin HCl Oral Tablet 500 MG (11/10/2022) Take 1 tablet twice a day for 7 day(s) Cephalexin Oral Tablet 500 MG (10/23/2022) Take 1 tablet three times a day for 7 day(s) Ofloxacin Ophthalmic Solution 0.3 % (03/30/2023) diazePAM Oral Tablet 10 MG (02/19/2022) TAKE 1 TABLET 60 MIN BEFORE TEST Atorvastatin Calcium Oral Tablet 40 MG (11/18/2022) FLUoxetine HCl Oral Capsule 40 MG (01/26/2022) Enalapril Maleate Oral Tablet 10 MG (01/26/2022) TAKE 1 TABLET BY MOUTH EVERY DAY Erythromycin Ophthalmic Ointment 5 MG/GM (02/09/2022) APPLY 1 A SMALL AMOUNT LEFT EYE 4 TIMES A DAY Atorvastatin Calcium Oral Tablet 20 MG (01/26/2022) TAKE 1 TABLET BY MOUTH EVERY DAY Spironolactone Oral Tablet 25 MG (06/15/2023) TAKE 0.5 TABLETS BY MOUTH ONCE DAILY. Jardiance Oral Tablet 25 MG (06/14/2023) TAKE 1 TABLET BY MOUTH EVERY DAY WITH BREAKFAST Furosemide Oral Tablet 40 MG (11/18/2022) HumuLIN R U-500 KwikPen Subcutaneous Solution Pen-injector 500 UNIT/ML (06/14/2023) INJECT 40 UNITS SUBCUTANEOUSLY AT BREAKFAST, 100 UNITS AT LUNCH, 80 UNITS AT SUPPER. metFORMIN HCl Oral Tablet 1000 MG (11/23/2022) TAKE 1 TABLET BY MOUTH TWICE DAILY WITH MEALS. E11.3599 ALLERGIES: Band-Aid [place] Surg Dressing Other Bandaging Tape Other PAST MEDICAL HISTORY: Podiatry History remarkable for Foot Numbness, Fungal Nails, Leg or Foot Ulcers. The patient has a past medical history of Arthritis, Depression, DM-Medication Dependent, Poor Circulation. Neuropathy High Cholesterol SURGICAL HISTORY: Hand Tonsils HOSPITALIZATIONS: None Noted SOCIAL HISTORY: Smoking Status: Never smoker; Last Reviewed: 12/08/2023 Alcohol use: social drinker No drug use Social History Reviewed (01/16/2021 11:20:18 AM EST) FAMILY HISTORY: There is a family history of Denial of any knowledge of significant family history. Denial of any knowledge of significant family history Family History Reviewed (01/16/2021 11:20:19 AM EST) REVIEW OF SYSTEMS: Psychologic: Admits to No psych symptoms. Review of systems otherwise negative PHYSICAL EXAMINATION: Vital Signs: Weight 235 lbs; Height 5 ft 8 in; BMI 35.7 07/06/2024 9:03 PM (EST) Temperature 98.6 F; Pulse Rate 100 bpm; Blood Pressure 120 / 80 mm/Hg Vascular Exam: BL Foot DP / PT pulses +2/4. 2+ edema B/L LE CFT less than 3 seconds to digits LEFT, skin temp warm to warm from proximal to distal BL Foot Dermatologic Exam: LT lower leg circumferential wound predebridement measures 14.8x21.6x0.1cm and post debridement measures 15x21.8x0.1cm with 80:20 granular fibrotic base post, surrounding slough, no erythema, no purulence, no probe to bone, no malodor, HEAVY serous drainage, macerated periwound. Into level of SUBCUTANEOUS TISSUE RT posterior lower leg wound measures 11.5x11.8x0.1cm and post debridement measures 11.7x12x0.1cm with 80:20 granular fibrotic base, surrounding slough, no erythema, no purulence, no probe to bone, no malodor, HEAVY serous drainage. Into level of SUBCUTANEOUS TISSUE NEW LEFT great toenail loosening with underlying wound and subungual fluid filled blood blister. Post left great toenail avulsion, there was underlying wound noted to nail bed measuring post debridement and removal of LEFT great toenail which measures 1.1x1.8x0.1cm. no deep probing. no bone exposed. LEFT foot 2nd toe tuft hyperkeratotic tissue Nails 1-5 left are thickened, elongated and discolored with subungual debris. The nails are greater than .3mm in thickness. The discoloration is yellowish in color. Innerspaces 1-4 LT are clean dry and intact. Skin texture and turgor are decreased. absent or decreased hair growth bilateral. chronic lower leg red hyperpigmentation Neurologic Exam: Comments/Other Findings: Vibratory sensations decreased LT, Protective sensations absent LT tested with 5.07 monofilament, and light, sharp, and temperature sensations intact LT. Normal Babinski test noted bl foot after testing Orthopedic Exam: Additional Orthopedic Findings: RT foot toe amputations 1,2,3,4,5 LEFT 2nd hammertoe contracture semi- rigid DIAGNOSIS: Type II diabetes mellitus with neurological manifestations Lymphedema of both lower extremities PVD (peripheral vascular disease) History of amputation of right great toe Amputated toe of right foot Hammertoe of right foot Personal history of diabetic foot ulcer Callus Diabetic ulcer of toe of left foot associated with type 2 diabetes mellitus, limited to breakdown of skin Swelling of right lower extremity Surgical wound dehiscence Onychomycosis Skin ulcer of left great toe, limited to breakdown of skin Venous ulcer of left lower extremity without varicose veins Ulcer of left lower extremity, limited to breakdown of skin Venous ulcer of right lower extremity without varicose veins Ulcer of right lower extremity, limited to breakdown of skin Onycholysis PLAN AND TREATMENT: ASSESMENT & PLAN BL Foot and Ankle and Lower extremity Exam and Evaluation carried out with a treatment plan reviewed with the patient and findings discussed with patient including alternatives, benefits, complications and risks TESTS / IMAGING / X-RAY EXAM 12/22/21 PVR RESULTS: RIGHT SIDE Resting right ankle brachial index: 1.37Right toe brachial index: 0.70Normal ankle brachial index at rest in the right leg. Normal toe brachial index at rest in the right leg. Right ankle: Normal at rest. LEFT SIDE Resting left ankle brachial index: 1.33Left toe brachial index: 0.83Normal ankle brachial index at rest in the left leg. Normal toe brachial index at rest in the left leg. Left ankle: Normal at rest. PREVIOUS right foot XR: There was noted to be normal joint spaces unless noted. No fractures or dislocations noted. No soft tissue emphysema noted. No osteopenia or sclerosis noted. tibial and fibular sesamoid excised, there is small calcified piece of fibular sesamoid bone noted to plantar lateral 1st met. RT foot amp at MTPJ 1,2,3,4,5. no lytic lesions. no soft tissue gas noted. Right Doppler Waveforms Dorsalis pedis: Multiphasic. Post tibial: Multiphasic. Right Pressures Brachial: 154 mmHg High thigh: greater than 255 mmHg Non-compressible arteries. Low thigh: greater than 255 mmHg Non-compressible arteries. Calf: greater than 255 mmHg Non-compressible arteries. Ankle dorsalis pedis: 146 mmHg MANJEET: 0.95 Ankle posterior tibial: 197 mmHg MANJETE: 1.28 Digit: Transmetatarsal amputation. Right PVR Waveforms High thigh: Normal. Low thigh: Normal. Calf: Normal. Ankle: Normal. Transmetatarsal: Normal. Digit: Transmetatarsal amputation. LEFT SIDE AT REST Left Doppler Waveforms Dorsalis pedis: Multiphasic. Post tibial: Multiphasic. Left Pressures Brachial: 153 mmHg High thigh: greater than 255 mmHg Non-compressible arteries. Low thigh: greater than 255 mmHg Non-compressible arteries. Calf: 218 mmHg Partially non-compressible arteries. Ankle dorsalis pedis: 138 mmHg MANJEET: 0.90 Ankle posterior tibial: 108 mmHg MANJEET: 0.70 Digit: 98 mmHg Left PVR Waveforms High thigh: Normal. Low thigh: Normal. Calf: Normal. Ankle: Mildly dampened. Transmetatarsal: Moderately dampened. Digit: Moderately dampened. B/L LE much worse with weeping drainage. LEFT is circumferential cluster NEW LEFT great toe wound from blood blister under toenail. LEFT great toenail was removed today. ASSESMENT & PLAN BL Foot and Ankle and Lower extremity Exam and Evaluation carried out with a treatment plan reviewed with the patient and findings discussed with patient including alternatives, benefits, complications and risks. She had new bleeding under LEFT great toenail with blister under LEFT great toenail. recommended removing nail to further evaluate. Temporary total nail avulsion carried out of the LEFT hallux TOTAL nail The patient had consent signed for the procedure. The procedure was discussed in detail with the patient including all risks, benefits, complications, and alternatives, no guarantees were give. A digital Block was carried out with 4 CC's of 2% Lidocaine. It was then prepped and draped in the standard aseptic technique. Betadine was used to prep the toe. Next a freer was then used to detach the nail fold and proximal eponychium and the nail bed from the nail plate. Next using straight hemostat the total nail was removed from the matrix to distal. All the non-viable necrotic tissue was debrided in its entirety and all healthy bleeding, viable tissue remained. Next the toe was flushed with copious amounts of normal sterile saline. No spicules were remaining and all healthy bleeding tissue remained. Next the toe was dressed with Bacitracin, adaptic 4x4, gauze, and coban. Post op instructions were dispensed both orally and written. The patient was told to keep the dressing intact for one day then to start dressing changes with Epsom s Salts soaks for 5 days for 15 minutes daily and dry and dress with triple antibiotic and a bandaid. Should any issues come about the patient is to call the office immediately or go to nearest emergency room. Discussed oral and topical infection prophylactics options. No LEFT great toe deep probing under nail. no concern for deeper infection at this time. adaptic, alginate, gauze, and tape RT posterior lower leg, LT circumferential lower extremity cluster, and NEW LEFT great toe wound noted in exam were treated with sharp excisional debridement carried out of the wound with non selective sharp excisional debridement past the dermis into SUBCUTANEOUS level with use of curette and 15 scalpel blade. Devitalized tissue removed. We then flushed out the wound with wound wash sterile saline. Area numbed with lidocaine gel if sensate prior. see phys exam for sizes LEFT LE circumferential cluster wound debrided 60% of total sq cm. Discussed importance in offloading, proper nutrition including blood sugar control and getting enough protein and vitamins, infection prevention, proper wound care in wound healing. Also discussed detrimental impact of smoking on healing. Reviewed proper wound care with patient. To not soak wound but to clean appropriately. To watch for signs of infection both local and systemic. These were reviewed with the patient. If seen to contact office or go to ED. To continue wound care consisting of washing the wound with urgotul with silver, drawmax, 4x4 gauze, abd pad, kerlix, coban. apply compression arrow wraps. change daily Continue to wear farrow wraps which will help her with compression Rx another farrow wrap compression wrap. she has more weeping drainage noted. she has no warmth. she is to notify heart failure clinic RN BABY of weight gain. she may need repeat echo. last echo done in 2021. she has gained 25 pounds compared to baseline and retaining fluid. pad and protect area well ok to shower but pat dry after showering and do wound care she can wear normal tennis shoe we discussed that her wounds are from her high a1c. she has history of this when she loses control of blood sugar. instructed no local signs of infection Previously Rx Farrow wraps 30-40mmHg for compression Previously Rx PVR. has not had one since 2021. was normal at that time. PVR B/L LE reviewed with patient previously more distal disease small vessel. nutritional consultation was recommended. we went over proper diet and protein intake. 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 more mild disease to left lower leg from knee to calf. has adequate inflow to her lower leg cont work with PCP for swelling control and focus on elevation for pain associated with wounds B/L Rx oxycodone 5mg every 8 hours prn see back in 2 weeks at wound care center for B/L lower leg wounds Non-Invasive Vascular Laboratory [facility] Lower Extremity Arterial Physiology Study Bilateral/Complete Date of service/time: 04/05/2024 10:56:20 AM Name: MS. SHADE BRAMBILA Date of : 1960 Age: 63 years Gender: F Clinical Indication Leg/foot ulceration. TECHNIQUE -------- An arterial physiological examination was performed, including measurement of blood pressures using continuous wave Doppler and recording of plethysmographic with or without Doppler waveforms at the below-mentioned limb segments. FINDINGS -------- RIGHT SIDE AT REST Right Doppler Waveforms Dorsalis pedis: Multiphasic. Post tibial: Multiphasic. Right Pressures Brachial: 154 mmHg High thigh: greater than 255 mmHg Non-compressible arteries. Low thigh: greater than 255 mmHg Non-compressible arteries. Calf: greater than 255 mmHg Non-compressible arteries. Ankle dorsalis pedis: 146 mmHg MANJEET: 0.95 Ankle posterior tibial: 197 mmHg MANJEET: 1.28 Digit: Transmetatarsal amputation. Right PVR Waveforms High thigh: Normal. Low thigh: Normal. Calf: Normal. Ankle: Normal. Transmetatarsal: Normal. Digit: Transmetatarsal amputation. LEFT SIDE AT REST Left Doppler Waveforms Dorsalis pedis: Multiphasic. Post tibial: Multiphasic. Left Pressures Brachial: 153 mmHg High thigh: greater than 255 mmHg Non-compressible arteries. Low thigh: greater than 255 mmHg Non-compressible arteries. Calf: 218 mmHg Partially non-compressible arteries. Ankle dorsalis pedis: 138 mmHg MANJEET: 0.90 Ankle posterior tibial: 108 mmHg MANJEET: 0.70 Digit: 98 mmHg Left PVR Waveforms High thigh: Normal. Low thigh: Normal. Calf: Normal. Ankle: Mildly dampened. Transmetatarsal: Moderately dampened. Digit: Moderately dampened. Prescriptions Written Today: oxyCODONE HCl Oral Tablet 5 MGTake 1 tablet every 12 hours as needed for 7 day(s) Refills: No Refills Rx quantity: 14 Type II diabetes mellitus with neurological manifestations 250.60 E11.49 Diagnosis Notes Drag & Drop to change diagnosis order Lymphedema of both lower extremities 457.1 I89.0 Diagnosis Notes Drag & Drop to change diagnosis order PVD (peripheral vascular disease) 443.9 I73.9 Diagnosis Notes Drag & Drop to change diagnosis order History of amputation of right great toe V49.71 Z89.411 Diagnosis Notes Drag & Drop to change diagnosis order Amputated toe of right foot 895.0 S98.131A Diagnosis Notes Drag & Drop to change diagnosis order Hammertoe of right foot 735.4 M20.41 Diagnosis Notes Drag & Drop to change diagnosis order Personal history of diabetic foot ulcer V12.29 Z86.31 Diagnosis Notes Drag & Drop to change diagnosis order Callus 700 L84 Diagnosis Notes Drag & Drop to change diagnosis order Diabetic ulcer of toe of left foot associated with type 2 diabetes mellitus, limited to breakdown of skin 250.80 E11.621 Diagnosis Notes Drag & Drop to change diagnosis order Swelling of right lower extremity 729.81 M79.89 Diagnosis Notes Drag & Drop to change diagnosis order Surgical wound dehiscence 998.32 T81.31XA Diagnosis Notes Drag & Drop to change diagnosis order Onychomycosis 110.1 B35.1 Diagnosis Notes Drag & Drop to change diagnosis order Skin ulcer of left great toe, limited to breakdown of skin 707.15 L97.521 Diagnosis Notes Drag & Drop to change diagnosis order Venous ulcer of left lower extremity without varicose veins 459.81 I87.2 Diagnosis Notes Drag & Drop to change diagnosis order Ulcer of left lower extremity, limited to breakdown of skin 707.10 L97.921 Diagnosis Notes Drag & Drop to change diagnosis order Venous ulcer of right lower extremity without varicose veins 459.81 I87.2 Diagnosis Notes Drag & Drop to change diagnosis order Ulcer of right lower extremity, limited to breakdown of skin 707.10 L97.911 Diagnosis Notes Drag & Drop to change diagnosis order Onycholysis 703.8 L60.1 documented in this encounter [facility] 07-07-2024 Note HNO ID: [id number] Author: OSITO OBRIEN RN Service: ? Author Type: Registered Nurse Type: Progress Notes Filed: 07/07/2024 15:47 Note Text: 13:30 IV Lasix given in [facility]F Clinic. #22 to right wrist started. DC on discharged per hospital policy. [facility] 07-07-2024 History of Presen t illness Narrative 13:30 IV Lasix given in CHF Clinic. #22 to right wrist started. DC on discharged per hospital policy. Images from the original note were not included. [facility] [place] [facility] OUTPATIENT VISIT DATE July 06, 2024 OUTPATIENT VISIT TYPE ESTABLISHED PRIMARY CARE PHYSICIAN: Eldon Gill DO CHIEF COMPLAINT: Patient presents with: Breathing Problem Leg Edema HISTORY OF PRESENT ILLNESS: Shade Brambila is a 64 year old female who presents today for a follow-up visit in the Heart Failure Clinic. The patient was last seen in office 06/09. The following changes were made at that time: lasix for 3 days. Patient has had 3 hospitalizations and/or emergency room encounters in the last 12 months. Most recent ED visit was from 11/28 for management of hypertension and heart failure symptoms. Blood pressure upon arrival to ED was 195/95 mmHg. NT BNP was elevated >5000. She was treated with IV lasix 40 mg. She was discharged home on 20 mg lasix daily. Patient contacted HF Clinic on 06/30 to report increase in leg swelling and trouble breathing when laying flat. She does not have a scale at home she feels she can stand on safely due to balance issues. Instructed the patient to take additional lasix, 40 mg for one day and decrease to 20 mg lasix once a day for 2 more days. Discussed at this time ordering echo. Echo ordered was placed to reassess LV function as last echo was in 02/2022 at outside facility. On 07/05, the patient was being seen by Wound Care in which a wiping rag washer left a msg for this FINANCIAL REPORTING ANALYST regarding increase in leg swelling along with increase in weight. This FINANCIAL REPORTING ANALYST called the patient to schedule IV lasix on 07/07. Today, the patient reports feeling short of breath on exertion along with increase in leg swelling. Weight today in office was 242 lbs. She states she has been taking 40 mg lasix every day for the past 4 days. Prior to that she was taking 20 mg daily. Of note, has had issues in the past with dehydration and hypotension. Continues to have issues with breathing at night. Has not been wearing CPAP machine. She is awaiting appt with sleep medicine. Has an appt 08/14. Denies chest pain, fever, chills, dizziness, lightheadedness. Was able to sleep last night however, has been having trouble laying flat. Tries to monitor her sodium. Denies eating out often. IMPRESSION: NYHA Functional Class: II Stage: C heart failure Shade Brambila is a 64 year-old female who presents to the Heart Failure Clinic for follow up. Appears hypervolemic on examination. Will administer 30 mg IV lasix in office due to increase in leg swelling along with increase in weight. She is also to take 20 mg lasix this evening if blood pressure allows. She is to take 40 mg lasix for 3 days. Call office on Wednesday to report weight. Increase foods high in potassium during this time. Educated on low sodium diet. Scale given to patient, bariatric size, as this may help her step on scale as it is bigger. May need to schedule second dose of IV lasix depending on weight. Reviewed plan of care with patient. All questions answered at this time. PLAN AND RECOMMENDATIONS: 1. Chronic heart failure with preserved ejection fraction (HCC) - ICD9: 428.9, ICD10: I50.32 (primary diagnosis) - daily weights, call office if weight increases 3-4 lbs in a 1-4 day period -2 gm low sodium diet -activity as tolerated, rest breaks as needed -unable to tolerate spironolactone due to hyperkalemia -lasix 40 mg daily x 3 days -30 mg IV lasix given in office today -call office on Wednesday to report weight will adjust lasix dose then -25 mg jardiance once a day -repeat echo in future -bariatric scale given to patient -follow up in HF Clinic 12/14 or sooner if needed 2. Primary hypertension - ICD9: 401.9, ICD10: I10 -BP suboptimal during visit 121/63 mmHg -encourage DASH/low sodium diet -encourage exercise with rest breaks as needed -goal BP <130/80 mmHg -continue home BP monitoring 3. Mixed hyperlipidemia - ICD9: 272.2, ICD10: E78.2 -continue atorvastatin -last lipid panel 08/15/2022; LDL 117 HDL 55, total 184 Follow up appointment with Dr. Sadler September 12, 2024 PAST MEDICAL HISTORY Diagnosis Date Charcot left foot due to diabetes mellitus (HCC) 05/2013 subsequent to left foot fracture Chronic ulcer of great toe of right foot (HCC) 06/14/2023 Congestive heart failure (HCC) Depression Diabetes (HCC) Diabetic ulcer of posterior right heel (HCC) 02/06/2020 Endometrial cancer (HCC) Foot fracture, left 05/2013 Charcot neuroarthropathy HTN (hypertension) Obesity NELLY (obstructive sleep apnea) Renal disorder on vasotec to protect kidneys rt diabetes since 1998. Vitamin D deficiency 01/05/2017 PAST SURGICAL HISTORY Procedure Laterality Date AMPUTATION TOE,MT-P JT Right 07/2022 Hallux AMPUTATION TOE,MT-P JT Right 10/2023 removal of remaining right toes DILATION & CURETTAGE DX&/THER NONOBSTETRIC x3 EXTENSIVE HAND SURGERY Dupuytren contracture TONSILLECTOMY HX TOTAL ABDOM HYSTERECTOMY 08/2023 with BSO Social History Tobacco Use Smoking status: Never Passive exposure: Never Smokeless tobacco: Never Vaping Use Vaping status: Never Used Substance Use Topics Alcohol use: Yes Comment: Occ - 3 glasses of wine a year Drug use: No Family History Problem Relation Age of Onset Hypertension Mother other (polycystic kidney disease) Mother Heart Father CHF Hypertension Father Diabetes Brother other (testicular cancer) Brother Coronary Artery Disease Brother MD and at age 45 other (CHF) Paternal Grandmother Cancer Paternal Aunt breast [place] ALLERGIES Allergen Reactions Amoxicillin Unknown Patient does not remember reaction Silicone Rash, Itching Dressing with silicone border caused inflammation where the bandage was placed Codeine Intolerance Patient states Makes her Hyper Morphine Intolerance Difficulty waking up / groggy CURRENT MEDICATIONS: Current Outpatient Medications Medication Sig Dispense Refill metFORMIN (GLUCOPHAGE) 1,000 mg tablet Take 1 tablet by mouth daily with lunch. 90 tablet 3 insulin regular human, CONCENTRATED 500 UNIT/ML, (HUMULIN R) 500 unit/mL (3 mL) inpn 40 units sc at breakfast, 100 units at lunch, 70 units at supper. 42 mL 3 honey (MEDIHONEY) 100 % pste Apply thin layer of medihoney to bilateral lower leg wounds. Change daily. Patient should start on March 31, 2024. 44 mL 2 ACCU-CHEK JOSE PLUS TEST STRP test strip USE TO TEST BLOOD GLUCOSE 3 TIMES DAILY 300 Strip 1 enalapril (VASOTEC) 20 mg tablet Take 0.5 tablets by mouth two times a day. atorvastatin (LIPITOR) 80 mg tablet take 1 tablet by mouth every day 90 tablet 3 ascorbic acid (VITAMIN C ORAL) Take by mouth. aspirin, enteric coated (ASPIRIN, ENTERIC COATED) 81 mg EC tablet Take 81 mg by mouth once daily. fluticasone (FLONASE) 50 mcg/actuation nasal spray Use 2 Sprays in each nostril once daily. (Patient taking differently: Use 2 Sprays in each nostril as needed.) 1 Each 3 cyanocobalamin, vitamin B-12, 1,000 mcg/mL kit 1,000 mcg by INJECTION(UNSPECIFIED PARENTERAL ROUTES) route once every month. JARDIANCE 25 mg tablet take 1 tablet by mouth every day with breakfast (Patient taking differently: Take 25 mg by mouth daily with lunch.) 90 tablet 3 CPAP/BIPAP/OTHER New set up: Settings 5 - 15 cm H2O, suitable mask per pt preference, chin strap, head gear, humidity, tubing, lifetime supplies. G47.33 NELLY 1 Each 0 Blood Pressure Monitor Please monitor blood pressure 1-2 hours after taking morning medications. 1 Kit 0 Zinc 50 mg tab Take 50 mg by mouth once daily. multivit,thx,calcium,iron,mins (MULTIVITAMIN AND MINERAL ORAL) Take 1 tablet by mouth once daily. ibuprofen (ADVIL ORAL) Take 3 tablets by mouth as needed. FLUoxetine (PROZAC) 40 mg capsule Take by mouth q 24 HR. lancets (ONE TOUCH DELICA) 33 gauge USE TO BLOOD GLUCOSE 3 TIMES DAILY. INSULIN DEPENDENT E11.3299, E11.65, Z79.4 300 Each 3 insulin needles, DISPOSABLE, (BD INSULIN PEN NEEDLE UF) 31 gauge x 5/16 FOUR DAILY FOR INSULIN INJECTIONS. 400 Each 1 Blood-Glucose Meter [facility] Use to test blood glucose 3 times daily. Insulin Dependent E11.3299, E11.65, Z79.4 1 Each 0 Cholecalciferol, Vitamin D3, 50 mcg (2,000 unit) cap Take 1 tablet by mouth once daily. furosemide (LASIX) 20 mg tablet Take 20 mg by mouth once daily. Current Facility-Administered Medications Medication Dose Route Frequency Provider Last Rate Last Admin cyanocobalamin 1,000 mcg injection 1,000 mcg INTRAMUSCULAR q 4 WEEKS Eldon Gill DO 1,000 mcg at 06/09/24 1421 REVIEW OF SYSTEMS: GENERAL: Positive for:Weight gain HEENT: Positive for:Glasses NECK: Negative for: Swelling, Pain, Stiffness RESPIRATORY: Positive for: Shortness of breath GASTROINTESTINAL: Negative for: Trouble swallowing, Heartburn, Change in bowel habits, Blood in stool, Dark black stools MUSCULOSKELETAL: Positive for: Muscle or joint pain NEUROLOGIC/PSYCHIATRIC: Negative for: Weakness, Paralysis, Numbness, Tingling, Tremor, Nervousness or anxiety, Depressed mood, Memory loss SKIN: Negative for: Rash, Itching HEMATOLOGICAL/LYMPHATIC: Positive for: Easy bruising and Easy bleeding ENDOCRINE: Negative for: Heat or Cold Intolerance, Excessive Sweating, Frequent Urination, Frequent Thirst PHYSICAL EXAMINATION: BP 121/63 Pulse 75 Wt 109.8 kg (242 lb) SpO2 95% BMI 36.80 kg/m General: Normal exam, no distress, overweight, uses cane Skin: No clubbing, no cyanosis. Eyes: Extra ocular movements intact Neck: Neck veins are not distended Lungs: Chest clear to auscultation Heart: Rhythm: regular rate and rhythm, Rate: normal, no murmur Abdomen: Normal Extremities: edema: 1+-2+; wraps in place Peripheral Pulses: Normal CARDIOVASCULAR MEDICINE TESTING: Latest Reference Range & Units 01/11/24 14:19 Sodium 136 - 144 mmol/L 137 Potassium 3.7 - 5.1 mmol/L 5.3 (H) Chloride 97 - 105 mmol/L 103 CO2 22 - 30 mmol/L 26 BUN 7 - 21 mg/dL 52 (H) Creatinine 0.58 - 0.96 mg/dL 1.05 (H) Glucose 74 - 99 mg/dL 204 (H) Calcium 8.5 - 10.2 mg/dL 9.6 Anion Gap 9 - 18 mmol/L 8 (L) NT Pro BNP <125 pg/mL 954 (H) eGFR >=60 mL/min/1.73m 60 (H): Data is abnormally high (L): Data is abnormally low NM Stress Test 01/06/2024: CONCLUSIONS: 1. SPECT Perfusion Study: Normal. 2. There is no scintigraphic evidence for inducible ischemia. 3. No evidence of scarred myocardium. 4. Left ventricle is normal in size. The left ventricle systolic function is normal. 5. This is a low risk scan. Gated Stress IR:3D LVEF % 70 Echocardiogram 02/2022: I have personally reviewed the Laboratory Testing and Echocardiogram. COUNSELING: We discussed the following non-pharmacological measures during this visit: Smoking and alcohol abstinence/cessation, if applicable Dietary and medication compliance Monitoring daily weights and blood pressures Exercise regimen When to call our office Heart Failure Education Booklet: Previously given. Discussed red flags and when to call MD/RN BABY or go to ED. Medications reconciled at end of visit: yes I spent 30 minutes in this visit, with more than 50% of the time devoted to patient counseling. SIGNATURE: Ayan Wallis APRN.CNP PATIENT NAME: Shade Brambila DATE: July 072023 TIME: 1247 documented in this encounter [facility] 07-07-2024 Note [facility] 07-07-2024 Instructions Ayan Wallis APRN.CNP - 07/07/2024 12:51 PM EDT Check blood pressure around dinner time. If blood pressure is above 110/50 mmHg, please take 20 mg lasix. Sat, Sun and Mon you may take 40 mg lasix. Call office on Wednesday to report weight. Will determine if you should go back to 20 mg lasix at that time or stay on 40 mg. New scale given in office today. Increase foods high in potassium the next few days such as bananas, oranges, kiwi, milk or yogurt. 2. Weigh yourself daily. Call me if your weight increases by 3-4 pounds in a 1-4 day period of time. 3. Continue low salt (2000 mg per day) diet. 4. Be as active as you are able. If you get tired, just stop and rest for a while. 5. Come back and see me on December 14 at 1:00 as previously scheduled. If you have any question or concern, you can call me at [phone]. documented in this encounter [facility] 07-06-2024 Telephone encounter Note Received msg from wiping rag washer yesterday regarding increase in patient's weight along with leg swelling. Called patient today at this FINANCIAL REPORTING ANALYST was out of office yesterday. Talked with patient. Will schedule her in CHF Clinic for IV lasix on Wednesday. Instructed her to hold her lasix. Reviewed plan of care. All questions answered at this time. Ayan Wallis APRN.DEBORAH [facility] 07-06-2024 Miscellaneous Notes Received msg from wiping rag washer yesterday regarding increase in patient's weight along with leg swelling. Called patient today at this FINANCIAL REPORTING ANALYST was out of office yesterday. Talked with patient. Will schedule her in CHF Clinic for IV lasix on Wednesday. Instructed her to hold her lasix. Reviewed plan of care. All questions answered at this time. Ayan Wallis APRN.DEBORAH documented in this encounter [facility] 07-05-2024 Instructions Shelley Kenny RN - 07/05/2024 10:07 AM EDT WOUND CARE INSTRUCTIONS- Shade Brambila Wound location: Bilateral Lower Leg Wounds Wash farrow wraps before using again to avoid reinfecting wounds. Attempt to change your dressing every day and when wet to keep from further breakdown. Elevate your legs several times a day for 30 minutes at a time to assist with decreasing swelling. - Gather supplies - Place down a clean work surface such as new paper towel or newly cleaned towel. - Clean all metal instruments with rubbing alcohol before and after each use. - Plastic garbage bag for old dressing - Wash your hands with soap and water before and after wound care. - Wash your foot with dial soap and water. Dry well between the toes. Bilateral Lower Extremity Wound Care: Wash wounds with: Vashe Apply to wound bed: Urgotul with silver them Drawtex over top of urgotul. Cover wounds with: 4x4 Gauze, ABD, Lightly wrap with conform, tape to secure.. Other: change dressings daily moisturize lower legs with vaseline daily - Apply Farrow wraps every morning: Apply compression first thing in the morning. OK to remove compression at bedtime. Left great toe nail bed: Apply Vashe soak, then remove and wipe the area dry Cover with single layer piece of Adaptic (mesh layer) followed by a piece of calcium alginate (felt like material) Wrap with dry gauze and tape Once the drainage decreases, you may apply a bandaid instead of the dry gauze wrap and tape Change the dressing daily Compression must be removed if: it becomes wet or soiled If you have numbness or tingling in your foot or toes If you have increased pain If toes become cold or discolored - Avoid sitting with legs in a dependent position or standing for long periods of time. - Attempt to lay flat and elevate your legs above the level of your heart 2-3 times daily, for 30 minutes at a time. - Be sure to continue walking and/or calf pumps and exercises to mimic writing the alphabet with your foot, as instructed Foot care Many people with diabetes lose the feeling in their feet (neuropathy). Therefore, they might not know they have an injury that can lead to serious problems, such as foot removal (amputation). By taking care of your feet, most serious problems can be prevented. If you have problems checking your own feet, have a family member or friend help you. Easy steps to protect your feet: Check your feet every day for: dry or cracked skin, cuts, open sores, blisters, redness, swelling, corns, calluses, or toenail problems. Use a mirror if necessary. Report any problems to your doctor. Keep your feet clean and dry, especially between the toes. If your feet are dry or cracked use a moisturizing lotion at least daily but never between the toes. See your judicial clerk every three months for foot and nail care. Don't go barefoot. Wear shoes or slippers at all times. Wear comfortable shoes that fit well. Check inside your shoes for foreign objects or rough spots before putting on shoes. Always wear socks. Avoid using anything hot, such as heating pads, hot water bottles, hot tubs, or bath water. Check the temperature of bath water with your elbow not your foot. Take your shoes and socks off at every office visit to remind your doctor to check your feet. Also, never tape a dressing directly to the skin on your legs or feet. Instead, use a self-adherent bandage to avoid injuring the skin on your lower extremities If calluses form they can cause wound ulcers to appear under the callus, must be seen by [employer] every three months to prevent. Maintain controlled blood sugar, if blood sugar is consistently above 200 this can delay wound healing and aggravate neuropathy. - Control your sodium intake as instructed by provider To give your wound the best chance to heal: - Eat three balanced meals daily focusing on the protein - Control your blood sugar. Keep blood sugar less than 200 - Complete your wound care instructions as ordered - Vitamin C 500 mg twice daily - Multiple Vitamin Daily - Drink a protein shake daily - Premiere Clear or Glucerna for Diabetic patients, Nepro for renal patients and premiere for non-renal and non-diabetic patients Report any of the following signs and symptoms of infection to the Wound Center at [phone] or go to the Emergency Department: Fever or chills Increased drainage Green or yellow drainage Foul odor Increased pain Hardness around the wound Redness, warmth or swelling of the surrounding tissue Color change to the wound Evenings / Weekends / Holidays If you call the wound center at the phone number provided above, please leave a detailed message that includes your full name, birthday, and phone number. We are seeing patients during the day, so we will return your call within a 24-48 hr period in the order your call was received. There is not an on-call provider assigned to the wound center. If you have an emergency that needs to be addressed, please go to an Urgent Care or Emergency Room. Thank you for your cooperation and understanding. Due to the cold and flu season approaching us, if you have any symptoms such as a cough, fever, chills, nausea, vomiting, diarrhea, and/or body aches, please call and reschedule your appointment in the Wound Center. PLAN/ORDERS: Follow-up in the Wound Center with Dr Eric DPM 07/20/24 @ 1:00 pm Contact the [facility] podiatry office regarding a continuation of your sorting livestock worker permission If you notice any warmth or redness notify Dr. Reyes and Go to ER. Continue aggressive nutritional support to assist wound healing, focusing on increasing protein intake, keeping blood sugars stable/controlled Wound care supplies were ordered through [facility], please call monthly for additional supplies at the phone number provided: . Continue wearing Farrow wraps for compression May consider HBOT again in the future Be sure to check your weight daily and follow up with HF clinic as scheduled. Discuss with HF clinic nurse that your weight today = 247lbs Dr. Berny Reyes DPM/carla/yesica documented in this encounter [facility] 07-05-2024 Nurse Note Nursing Documentation Pertinent Medical History: DM2, HTN, venous insufficiency, & heart failure Wound Etiology according to patient: leg swelling & wounds February 2024 Pt had right great toe amputation June 18, 2023 Patient arrived via: Ambulatory with [facility]/Nursing Facility: N/A Consent captured for debridement per Dr. Berny Reyes DPM and linda until 2024 Consent captured for debridement per Dr. Hu Pickard DPM and linda until September 2024 Anticoagulant Therapy: ASA 81mg ACTIVE CARE PER PROVIDER: Giovanni Bolanos DPM, Hu Pickard DPM, & Alfredo Moore DPM Wounds 1-30 previously closed WOUND # 34 LOCATION: Right Distal Medial Lower Leg-CLOSED 03/13/24 (February 2024) CLOSED 03/13/24, closed 03/29/24 Application Dates: Grafts are complete 01/07/2023 Apligraf 01/15/2023 Apligraf 01/21/2023 Apligraf 01/27/2023 Apligraf 02/04/2023 Apligraf WOUND # 35 LOCATION: Right Posterior Lower Leg (February 2024) Closed 03/29/24, closed 04/12/24 WOUND # 31 LOCATION: Left Anterior Lower Leg (February 2024) 07/05/24: combined with wound #32 WOUND # 32 LOCATION: Left Posterior Lower Leg Cluster (February 2024) WOUND # 33 LOCATION: Right Medial Lower Leg (February 2024) WOUND # 34 LOCATION: Right Posterior Inferior Leg (May 2024) #33 & #34 combined and renamed wound #38 WOUND ASSESSMENT: Refer to Provider's Wound Assessment Note VASCULAR ASSESSMENT BY PROVIDER: See provider wound assessment note CHF History: Yes as of February 2022, Dr. Sadler in Cardiology EDEMA: Right Foot: 1+ Right Ankle: 1+ Right Calf: 3+ Left Foot: 2+ Left Ankle: none Left Calf: 2+ Other: N/A MEASUREMENTS: in cm Right Calf: 37.4 Right Ankle: 21.5 Left Calf: 34.5 Left Ankle: 21.8 Length: 43.0 WOUND PHOTOGRAPHY: YES x 6 (last taken 07/05/24) DEBRIDEMENT PROCEDURE BY PROVIDER: Anesthetic Used: 2% lidogel applied by Andrea Molina RN Other procedure: n/a Specimen collected:n/a WOUND TREATMENT PER MD ORDER: Wounds cleansed by mechanical debridement to allow provider to visualize wound base 07/05/24: Patient reports wosening heart failure; states she has a lot more swelling in the legs and has had trouble breathing when trying to lay in bed to sleep; weight today = 247lbs (up almost 25lbs since 2023). Message sent to Ayan Wallis CNP with heart failure clinic. Patient states she has been speaking to Ayan via telephone regarding weight gain. WOUND # 37 LOCATION: Left lower leg now circumferential (wounds #31 & 32 are now combined and renamed wound #37 on 07/05/24) L: 15.0 cm x W: 21.8 cm x D: 0.1 cm WOUND # 38 LOCATION: Right posterior lower leg (wounds #33 & #34 combined and renamed wound #38 on 07/05/24) L:11.7 cm x W: 12.0 cm x D: 0.1 cm Cleansed with: Vashe Applied to naya-wound skin: skin prep, vaseline Applied to wound bed: Urgotul Ag, drawtex, drymax Covered and secured with: ABD, kerlix. Tape. Other: tubi-tobacco wetter D double layer WOUND # 36 LOCATION: Left hallux nail bed (NEW 07/05/24 - Left hallux nail loose, thickened, dark in color - patient states it has been bleeding at home, toe nail removed today with a blood blister noted beneath the nail L: 1.1 cm x W: 1.8 cm x D: 0.1 cm Cleansed with: Vashe Applied to naya-wound skin: Applied to wound bed: adaptic, calcium alginate Covered and secured with: 2 conform roll gauze and tape Other: OLEGARIO WRAP/SurePress/Tubi-tobacco wetter: Foot is warm and pink before and after application. It was demonstrated to the patient how to check for adequate circulation. Patient voices understanding. If circulation becomes compromised by a change in color, increased pain, numbness or tingling to the area, the patient knows to remove the compression and elevate the leg above the heart. COMPRESSION: Double layer Tubi-tobacco wetter size D left lower leg and size E right lower leg - patient to resume her Farrow wraps at home SPECIAL NEEDS: Coordination of care - another script sent to [facility] for another pair of farrow wraps as patient wants to have a spare pair. Emotional support N/A OR set-up N/A Yarn Examiner N/A Incontinence needs N/A [employer] company: ordered 03/01/24 Farrow wraps, Supplies ordered 06/07/2024 x 30 days with 2 refills DISCHARGED in stable condition to: ambulatory with cane PLAN/ORDERS: Follow-up in the Wound Center with Dr Eric DPM 07/20/24 @ 1:00 pm Contact the [facility] podiatry office regarding a continuation of your sorting livestock worker permission If you notice any warmth or redness notify Dr. Hammer and Go to ER. Continue aggressive nutritional support to assist wound healing, focusing on increasing protein intake, keeping blood sugars stable/controlled Wound care supplies were ordered through [facility], please call monthly for additional supplies at the phone number provided: . Continue wearing Farrow wraps for compression May consider HBOT again in the future Be sure to check your weight daily and follow up with HF clinic as scheduled. Discuss with HF clinic nurse that your weight today = 247lbs EDUCATION: discussed need for patient to call her heart failure RN BABY to report current weight; wound care to continue for the lower legs and new wound care reviewed with patient for the left hallux nail bed. Also discussed need to call 911 if she experiences increasing shortness of breath at home. The patient/family was instructed how to cleanse the wound(s). Visual demonstration on how to apply the dressing with teach back method. Signs & symptoms of infection were reviewed: Increased redness, swelling, pain, green/yellow drainage, fever and/or chills would all need to be evaluated by a Physician. Patient received typed home-going wound care instructions and has expressed intent to comply. OTHER EDUCATION: Education performed regarding lymphedema/edema: Elevation of extremity above the heart for 30 minutes three times daily and as needed Exercise such as writing the ABC's with your toes in the air, walking and/or calf pumps Wearing compression as ordered by provider Diet controlling of sodium as instructed by provider Use of medication to help control edema. UNIVERSAL PROTOCOL / SAFETY CHECKLIST Procedure to be Performed sharp debridement of lower leg wounds Sign In: 1020 A Moment of CARE was completed. Personnel directly involved with the procedure wore the appropriate PPE (Personal Protective Equipment). Patient/Surrogate Stated/Verified: PATIENT VERIFIED(optional for EMERGENT procedures): Patient name, Date of , Relevant allergies, and The intended procedure Time Out Communication: 1020 Intended patient and procedure match the source documents. Consent documented and matches the intended procedure. No relevant labs, photos, and/or imaging studies were applicable for review. Sign Out: 1035 SIGN OUT (optional for EMERGENT procedures): All instruments, equipment, possible retained foreign bodies accounted for. Shelley Kenny RN/yesica Current HBOT Status: Active or Complete - see screening below WOUND CENTER HYPERBARIC OXYGEN THERAPY SCREENING 1. Is the patient diabetic? (If No, skip to question 5) Yes 2. Does the patient have a lower extremity wound? Yes 3. Is there exposed/involved tendon or bone? NO 4. Has the wound been present for 30 days? Yes If Yes to ALL questions above, consult the Hyperbaric Center 5. Has the patient been diagnosed with osteomyelitis? No 6. Has the patient had a previous skin graft or flap at the wound? No 7. Has the patient had or been offered vascular intervention/evaluation? No 8. Does the patient have a wound at an amputation site? Yes 9. Has the patient had radiation therapy at the site of the problem? No If Yes to ANY of questions 5-9, consult the Hyperbaric Center 07/05/24 Dr. Benitez in to examine and discuss possible resumption of HBOT. Patient is not a candidate for HBOT at this time. [facility] 07-05-2024 Nurse Note Nursing Documentation Pertinent Medical History: DM2, HTN, venous insufficiency, & heart failure Wound Etiology according to patient: leg swelling & wounds February 2024 Pt had right great toe amputation June 18, 2023 Patient arrived via: Ambulatory with [facility]/Nursing Facility: N/A Consent captured for debridement per Dr. Berny Reyes DPM and linda until 2024 Consent captured for debridement per Dr. Hu Pickard DPM and linda until September 2024 Anticoagulant Therapy: ASA 81mg ACTIVE CARE PER PROVIDER: Giovanni Bolanos DPM, Hu Pickard DPM, & Alfredo Moore DPM Wounds 1-30 previously closed WOUND # 34 LOCATION: Right Distal Medial Lower Leg-CLOSED 03/13/24 (February 2024) CLOSED 03/13/24, closed 03/29/24 Application Dates: Grafts are complete 01/07/2023 Apligraf 01/15/2023 Apligraf 01/21/2023 Apligraf 01/27/2023 Apligraf 02/04/2023 Apligraf WOUND # 35 LOCATION: Right Posterior Lower Leg (February 2024) Closed 03/29/24, closed 04/12/24 WOUND # 31 LOCATION: Left Anterior Lower Leg (February 2024) 07/05/24: combined with wound #32 WOUND # 32 LOCATION: Left Posterior Lower Leg Cluster (February 2024) WOUND # 33 LOCATION: Right Medial Lower Leg (February 2024) WOUND # 34 LOCATION: Right Posterior Inferior Leg (May 2024) #33 & #34 combined and renamed wound #38 WOUND ASSESSMENT: Refer to Provider's Wound Assessment Note VASCULAR ASSESSMENT BY PROVIDER: See provider wound assessment note CHF History: Yes as of February 2022, Dr. Sadler in Cardiology EDEMA: Right Foot: 1+ Right Ankle: 1+ Right Calf: 3+ Left Foot: 2+ Left Ankle: none Left Calf: 2+ Other: N/A MEASUREMENTS: in cm Right Calf: 37.4 Right Ankle: 21.5 Left Calf: 34.5 Left Ankle: 21.8 Length: 43.0 WOUND PHOTOGRAPHY: YES x 6 (last taken 07/05/24) DEBRIDEMENT PROCEDURE BY PROVIDER: Anesthetic Used: 2% lidogel applied by Andrea Molina RN Other procedure: n/a Specimen collected:n/a WOUND TREATMENT PER MD ORDER: Wounds cleansed by mechanical debridement to allow provider to visualize wound base 07/05/24: Patient reports wosening heart failure; states she has a lot more swelling in the legs and has had trouble breathing when trying to lay in bed to sleep; weight today = 247lbs (up almost 25lbs since 2023). Message sent to Ayan Wallis CNP with heart failure clinic. Patient states she has been speaking to Ayan via telephone regarding weight gain. WOUND # 37 LOCATION: Left lower leg now circumferential (wounds #31 & 32 are now combined and renamed wound #37 on 07/05/24) L: 15.0 cm x W: 21.8 cm x D: 0.1 cm WOUND # 38 LOCATION: Right posterior lower leg (wounds #33 & #34 combined and renamed wound #38 on 07/05/24) L:11.7 cm x W: 12.0 cm x D: 0.1 cm Cleansed with: Vashe Applied to naya-wound skin: skin prep, vaseline Applied to wound bed: Urgotul Ag, drawtex, drymax Covered and secured with: ABD, kerlix. Tape. Other: tubi-tobacco wetter D double layer WOUND # 36 LOCATION: Left hallux nail bed (NEW 07/05/24 - Left hallux nail loose, thickened, dark in color - patient states it has been bleeding at home, toe nail removed today with a blood blister noted beneath the nail L: 1.1 cm x W: 1.8 cm x D: 0.1 cm Cleansed with: Vashe Applied to naya-wound skin: Applied to wound bed: adaptic, calcium alginate Covered and secured with: 2 conform roll gauze and tape Other: OLEGARIO WRAP/SurePress/Tubi-tobacco wetter: Foot is warm and pink before and after application. It was demonstrated to the patient how to check for adequate circulation. Patient voices understanding. If circulation becomes compromised by a change in color, increased pain, numbness or tingling to the area, the patient knows to remove the compression and elevate the leg above the heart. COMPRESSION: Double layer Tubi-tobacco wetter size D left lower leg and size E right lower leg - patient to resume her Farrow wraps at home SPECIAL NEEDS: Coordination of care - another script sent to [facility] for another pair of farrow wraps as patient wants to have a spare pair. Emotional support N/A OR set-up N/A Yarn Examiner N/A Incontinence needs N/A DME company: ordered 03/01/24 Farrow wraps, Supplies ordered 06/07/2024 x 30 days with 2 refills DISCHARGED in stable condition to: ambulatory with cane PLAN/ORDERS: Follow-up in the Wound Center with Dr Eric DPM 07/20/24 @ 1:00 pm Contact the [facility] podiatry office regarding a continuation of your sorting livestock worker permission If you notice any warmth or redness notify Dr. Reyes and Go to ER. Continue aggressive nutritional support to assist wound healing, focusing on increasing protein intake, keeping blood sugars stable/controlled Wound care supplies were ordered through [facility], please call monthly for additional supplies at the phone number provided: . Continue wearing Farrow wraps for compression May consider HBOT again in the future Be sure to check your weight daily and follow up with HF clinic as scheduled. Discuss with HF clinic nurse that your weight today = 247lbs EDUCATION: discussed need for patient to call her heart failure RN BABY to report current weight; wound care to continue for the lower legs and new wound care reviewed with patient for the left hallux nail bed. Also discussed need to call 911 if she experiences increasing shortness of breath at home. The patient/family was instructed how to cleanse the wound(s). Visual demonstration on how to apply the dressing with teach back method. Signs & symptoms of infection were reviewed: Increased redness, swelling, pain, green/yellow drainage, fever and/or chills would all need to be evaluated by a Physician. Patient received typed home-going wound care instructions and has expressed intent to comply. OTHER EDUCATION: Education performed regarding lymphedema/edema: Elevation of extremity above the heart for 30 minutes three times daily and as needed Exercise such as writing the ABC's with your toes in the air, walking and/or calf pumps Wearing compression as ordered by provider Diet controlling of sodium as instructed by provider Use of medication to help control edema. UNIVERSAL PROTOCOL / SAFETY CHECKLIST Procedure to be Performed sharp debridement of lower leg wounds Sign In: 1020 A Moment of CARE was completed. Personnel directly involved with the procedure wore the appropriate PPE (Personal Protective Equipment). Patient/Surrogate Stated/Verified: PATIENT VERIFIED(optional for EMERGENT procedures): Patient name, Date of , Relevant allergies, and The intended procedure Time Out Communication: 1020 Intended patient and procedure match the source documents. Consent documented and matches the intended procedure. No relevant labs, photos, and/or imaging studies were applicable for review. Sign Out: 1035 SIGN OUT (optional for EMERGENT procedures): All instruments, equipment, possible retained foreign bodies accounted for. Shelley Kenny RN/yesica Current HBOT Status: Active or Complete - see screening below WOUND CENTER HYPERBARIC OXYGEN THERAPY SCREENING 1. Is the patient diabetic? (If No, skip to question 5) Yes 2. Does the patient have a lower extremity wound? Yes 3. Is there exposed/involved tendon or bone? NO 4. Has the wound been present for 30 days? Yes If Yes to ALL questions above, consult the Hyperbaric Center 5. Has the patient been diagnosed with osteomyelitis? No 6. Has the patient had a previous skin graft or flap at the wound? No 7. Has the patient had or been offered vascular intervention/evaluation? No 8. Does the patient have a wound at an amputation site? Yes 9. Has the patient had radiation therapy at the site of the problem? No If Yes to ANY of questions 5-9, consult the Hyperbaric Center 07/05/24 Dr. Benitez in to examine and discuss possible resumption of HBOT. Patient is not a candidate for HBOT at this time. documented in this encounter [facility] 06-30-2024 Telephone encounter Note Patient called to report fluid retention. States she is not able to stand on her scale thus, has not had a weight since she was in the HF clinic on 06/09. Reports having a harder time breathing when laying flat. That started last evening. She took 20 mg lasix yesterday. Based on symptoms, will have her take 40 mg lasix today and 20 mg lasix Wednesday and Wednesday. She does not have potassium tablets but states she has bananas. Instructed to her eat two bananas today and one Wednesday and one Wednesday. As discussed during last office visit, will reorder echocardiogram to reassess LV function. Reviewed plan of care with patient. She is to call the office on Wednesday. All questions answered. Patient verbalized plan of care back to this FINANCIAL REPORTING ANALYSTMegan Wallis APRN.DEBORAH [facility] 06-30-2024 Miscellaneous Notes Patient called to report fluid retention. States she is not able to stand on her scale thus, has not had a weight since she was in the HF clinic on 06/09. Reports having a harder time breathing when laying flat. That started last evening. She took 20 mg lasix yesterday. Based on symptoms, will have her take 40 mg lasix today and 20 mg lasix Wednesday and Wednesday. She does not have potassium tablets but states she has bananas. Instructed to her eat two bananas today and one Wednesday and one Wednesday. As discussed during last office visit, will reorder echocardiogram to reassess LV function. Reviewed plan of care with patient. She is to call the office on Wednesday. All questions answered. Patient verbalized plan of care back to this FINANCIAL REPORTING ANALYST. Ayan Wallis APRN.DEBORAH documented in this encounter [facility] 06-23-2024 Note [facility] 06-23-2024 History of Presen t illness Narrative Date of Visit: 06/22/2024 Problem list reviewed. CHIEF COMPLAINT: check B/L lower leg wounds DM II A1c 8.3 (10/07/23) DLS 02/08/24 HISTORY OF PRESENT ILLNESS: Patient last seen 06/07/24. wounds worsened with increased drainage to posterior aspect of B/L lower leg. Here today for B/L lower leg wound check. she is wearing her farrow wraps today Denies N/V/F/C/D/SOB/CP/LP. She relates she can't feel feet well due to neuropathy. She has numbness and toe amputations. Referred by Dr. Dasilva. 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 Right 2nd toe amputation and hallux I&D 10/28/22. Hx s/p RT toe amp 3,4,5 (DOS 10/14/23) DME DM inserts 08/24/23 rx circade wraps 08/14/22 CURRENT MEDICATIONS: Percocet Oral Tablet 5-325 MG (10/27/2023) Take 1 tablet every 6 hours as needed for 4 day(s) Clindamycin HCl Oral Capsule 300 MG (11/26/2022) TAKE 1 CAPSULE BY MOUTH EVERY 8 HOURS FOR 7 DAYS. oxyCODONE-Acetaminophen Oral Tablet 5-325 MG (10/28/2022) Ketorolac Tromethamine Ophthalmic Solution 0.5 % (04/26/2023) Accu-Chek Jose Plus In Vitro Strip (09/23/2022) Sulfamethoxazole-Trimethoprim Oral Tablet 800-160 MG (06/24/2023) Atorvastatin Calcium Oral Tablet 80 MG (06/13/2023) miSOPROStol Oral Tablet 200 MCG (06/15/2023) TAKE 2 TABLETS BY MOUTH THE DAY PRIOR TO PROCEDURE AT BEDTIME WITH FOOD Fluticasone Propionate Nasal Suspension 50 MCG/ACT (12/15/2022) USE 2 SPRAYS IN EACH NOSTRIL DAILY X1 WEEK,THEN 1 SPRAY IN EACH NOSTRIL DAILY THEREAFTER NEEDED Nitrofurantoin Monohyd Macro Oral Capsule 100 MG (02/08/2023) Cephalexin Oral Capsule 500 MG (09/26/2022) Doxycycline Hyclate Oral Capsule 100 MG (11/10/2022) Fluconazole Oral Tablet 200 MG (03/20/2024) TAKE 1 TABLET EVERY DAY FOR 21 DAYS Bactrim DS Oral Tablet 800-160 MG (06/24/2023) Take 1 tablet twice a day for 10 day(s) Cipro Oral Tablet 500 MG (06/11/2023) Take 1 tablet twice a day for 7 day(s) Doxycycline Hyclate Oral Tablet 100 MG (06/08/2023) Take 1 tablet twice a day for 7 day(s) Ciprofloxacin HCl Oral Tablet 500 MG (11/10/2022) Take 1 tablet twice a day for 7 day(s) Cephalexin Oral Tablet 500 MG (10/23/2022) Take 1 tablet three times a day for 7 day(s) Ofloxacin Ophthalmic Solution 0.3 % (03/30/2023) diazePAM Oral Tablet 10 MG (02/19/2022) TAKE 1 TABLET 60 MIN BEFORE TEST Atorvastatin Calcium Oral Tablet 40 MG (11/18/2022) FLUoxetine HCl Oral Capsule 40 MG (01/26/2022) Enalapril Maleate Oral Tablet 10 MG (01/26/2022) TAKE 1 TABLET BY MOUTH EVERY DAY Erythromycin Ophthalmic Ointment 5 MG/GM (02/09/2022) APPLY 1 A SMALL AMOUNT LEFT EYE 4 TIMES A DAY Atorvastatin Calcium Oral Tablet 20 MG (01/26/2022) TAKE 1 TABLET BY MOUTH EVERY DAY Spironolactone Oral Tablet 25 MG (06/15/2023) TAKE 0.5 TABLETS BY MOUTH ONCE DAILY. Jardiance Oral Tablet 25 MG (06/14/2023) TAKE 1 TABLET BY MOUTH EVERY DAY WITH BREAKFAST Furosemide Oral Tablet 40 MG (11/18/2022) HumuLIN R U-500 KwikPen Subcutaneous Solution Pen-injector 500 UNIT/ML (06/14/2023) INJECT 40 UNITS SUBCUTANEOUSLY AT BREAKFAST, 100 UNITS AT LUNCH, 80 UNITS AT SUPPER. metFORMIN HCl Oral Tablet 1000 MG (11/23/2022) TAKE 1 TABLET BY MOUTH TWICE DAILY WITH MEALS. E11.3599 ALLERGIES: Band-Aid [place] Surg Dressing Other Bandaging Tape Other PAST MEDICAL HISTORY: Podiatry History remarkable for Foot Numbness, Fungal Nails, Leg or Foot Ulcers. The patient has a past medical history of Arthritis, Depression, DM-Medication Dependent, Poor Circulation. Neuropathy High Cholesterol SURGICAL HISTORY: Hand Tonsils HOSPITALIZATIONS: None Noted SOCIAL HISTORY: Smoking Status: Never smoker; Last Reviewed: 12/08/2023 Alcohol use: social drinker No drug use Social History Reviewed (01/16/2021 11:20:18 AM EST) FAMILY HISTORY: There is a family history of Denial of any knowledge of significant family history. Denial of any knowledge of significant family history Family History Reviewed (01/16/2021 11:20:19 AM EST) REVIEW OF SYSTEMS: Psychologic: Admits to No psych symptoms. Review of systems otherwise negative PHYSICAL EXAMINATION: Vital Signs: Weight 235 lbs; Height 5 ft 8 in; BMI 35.7 06/21/2024 11:48 AM (EST) Temperature 98.6 F; Pulse Rate 100 bpm; Blood Pressure 120 / 80 mm/Hg Vascular Exam: BL Foot DP / PT pulses +2/4. 2+ edema B/L LE CFT less than 3 seconds to digits LEFT, skin temp warm to warm from proximal to distal BL Foot Dermatologic Exam: LT medial lower leg wound healed LT anterior lower leg wound healed LT posterior lower leg cluster wound predebridement measures 8.2x5x0.1cm and post debridement measures 8.3x5.1x0.1cm with 80:20 granular fibrotic base post, surrounding slough, no erythema, no purulence, no probe to bone, no malodor, MOD serous drainage. Into level of SUBCUTANEOUS TISSUE RT medial lower leg cluster wound measures 0.4x0.4x0.1cm and post debridement measures 0.5x0.5x0.1cm with 80:20 granular fibrotic base, surrounding slough, no erythema, no purulence, no probe to bone, no malodor, MOD serous drainage. Into level of SUBCUTANEOUS TISSUE RT posterior inferior lower leg wound measures 6.4x4.2x0.1post debridement measures 6.5x4.3.x0.1cm with 70:30 granular fibrotic base, surrounding slough, no erythema, no purulence, no probe to bone, no malodor, MOD serous drainage. Into level of SUBCUTANEOUS TISSUE LEFT foot 2nd toe tuft hyperkeratotic tissue Nails 1-5 left are thickened, elongated and discolored with subungual debris. The nails are greater than .3mm in thickness. The discoloration is yellowish in color. Innerspaces 1-4 LT are clean dry and intact. Skin texture and turgor are decreased. absent or decreased hair growth bilateral. chronic lower leg red hyperpigmentation Neurologic Exam: Comments/Other Findings: Vibratory sensations decreased LT, Protective sensations absent LT tested with 5.07 monofilament, and light, sharp, and temperature sensations intact LT. Normal Babinski test noted bl foot after testing Orthopedic Exam: Additional Orthopedic Findings: RT foot toe amputations 1,2,3,4,5 LEFT 2nd hammertoe contracture semi- rigid DIAGNOSIS: Type II diabetes mellitus with neurological manifestations Lymphedema of both lower extremities PVD (peripheral vascular disease) History of amputation of right great toe Amputated toe of right foot Hammertoe of right foot Personal history of diabetic foot ulcer Callus Diabetic ulcer of toe of left foot associated with type 2 diabetes mellitus, limited to breakdown of skin Swelling of right lower extremity Surgical wound dehiscence Onychomycosis Skin ulcer of left great toe, limited to breakdown of skin Venous ulcer of left lower extremity without varicose veins Ulcer of left lower extremity, limited to breakdown of skin Venous ulcer of right lower extremity without varicose veins Ulcer of right lower extremity, limited to breakdown of skin PLAN AND TREATMENT: ASSESMENT & PLAN BL Foot and Ankle and Lower extremity Exam and Evaluation carried out with a treatment plan reviewed with the patient and findings discussed with patient including alternatives, benefits, complications and risks TESTS / IMAGING / X-RAY EXAM 12/22/21 PVR RESULTS: RIGHT SIDE Resting right ankle brachial index: 1.37Right toe brachial index: 0.70Normal ankle brachial index at rest in the right leg. Normal toe brachial index at rest in the right leg. Right ankle: Normal at rest. LEFT SIDE Resting left ankle brachial index: 1.33Left toe brachial index: 0.83Normal ankle brachial index at rest in the left leg. Normal toe brachial index at rest in the left leg. Left ankle: Normal at rest. PREVIOUS right foot XR: There was noted to be normal joint spaces unless noted. No fractures or dislocations noted. No soft tissue emphysema noted. No osteopenia or sclerosis noted. tibial and fibular sesamoid excised, there is small calcified piece of fibular sesamoid bone noted to plantar lateral 1st met. RT foot amp at MTPJ 1,2,3,4,5. no lytic lesions. no soft tissue gas noted. Right Doppler Waveforms Dorsalis pedis: Multiphasic. Post tibial: Multiphasic. Right Pressures Brachial: 154 mmHg High thigh: greater than 255 mmHg Non-compressible arteries. Low thigh: greater than 255 mmHg Non-compressible arteries. Calf: greater than 255 mmHg Non-compressible arteries. Ankle dorsalis pedis: 146 mmHg MANJEET: 0.95 Ankle posterior tibial: 197 mmHg MANJEET: 1.28 Digit: Transmetatarsal amputation. Right PVR Waveforms High thigh: Normal. Low thigh: Normal. Calf: Normal. Ankle: Normal. Transmetatarsal: Normal. Digit: Transmetatarsal amputation. LEFT SIDE AT REST Left Doppler Waveforms Dorsalis pedis: Multiphasic. Post tibial: Multiphasic. Left Pressures Brachial: 153 mmHg High thigh: greater than 255 mmHg Non-compressible arteries. Low thigh: greater than 255 mmHg Non-compressible arteries. Calf: 218 mmHg Partially non-compressible arteries. Ankle dorsalis pedis: 138 mmHg MANJEET: 0.90 Ankle posterior tibial: 108 mmHg MANJEET: 0.70 Digit: 98 mmHg Left PVR Waveforms High thigh: Normal. Low thigh: Normal. Calf: Normal. Ankle: Mildly dampened. Transmetatarsal: Moderately dampened. Digit: Moderately dampened. LEFT anterior lower leg wound healed LEFT posterior lower leg more drainage RIGHT posterior inferior lower leg wound improved RT posterior distal lower leg, LT posterior lower extremity cluster, and RT medial lower extremity noted in exam were treated with sharp excisional debridement carried out of the wound with non selective sharp excisional debridement past the dermis into SUBCUTANEOUS level with use of curette and 15 scalpel blade. Devitalized tissue removed. We then flushed out the wound with wound wash sterile saline. Area numbed with lidocaine gel if sensate prior. see phys exam Discussed importance in offloading, proper nutrition including blood sugar control and getting enough protein and vitamins, infection prevention, proper wound care in wound healing. Also discussed detrimental impact of smoking on healing. Reviewed proper wound care with patient. To not soak wound but to clean appropriately. To watch for signs of infection both local and systemic. These were reviewed with the patient. If seen to contact office or go to ED. To continue wound care consisting of washing the wound with urgotul with silver, drawmax, 4x4 gauze, abd pad, kerlix, coban. apply compression arrow wraps. change daily Continue to wear farrow wraps which will help her with compression pad and protect area well ok to shower but pat dry after showering and do wound care she can wear normal tennis shoe we discussed that her wounds are from her high a1c. she has history of this when she loses control of blood sugar. instructed no local signs of infection Previously Rx Farrow wraps 30-40mmHg for compression Previously Rx PVR. has not had one since 2021. was normal at that time. PVR B/L LE reviewed with patient previously more distal disease small vessel. nutritional consultation was recommended. we went over proper diet and protein intake. 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 more mild disease to left lower leg from knee to calf. has adequate inflow to her lower leg cont work with PCP for swelling control and focus on elevation see back in 2 weeks at wound care center for B/L lower leg wounds Non-Invasive Vascular Laboratory [facility] Lower Extremity Arterial Physiology Study Bilateral/Complete Date of service/time: 04/05/2024 10:56:20 AM Name: MS. SHADE BRAMBILA Date of : 1960 Age: 63 years Gender: F Clinical Indication Leg/foot ulceration. TECHNIQUE -------- An arterial physiological examination was performed, including measurement of blood pressures using continuous wave Doppler and recording of plethysmographic with or without Doppler waveforms at the below-mentioned limb segments. FINDINGS -------- RIGHT SIDE AT REST Right Doppler Waveforms Dorsalis pedis: Multiphasic. Post tibial: Multiphasic. Right Pressures Brachial: 154 mmHg High thigh: greater than 255 mmHg Non-compressible arteries. Low thigh: greater than 255 mmHg Non-compressible arteries. Calf: greater than 255 mmHg Non-compressible arteries. Ankle dorsalis pedis: 146 mmHg MANJEET: 0.95 Ankle posterior tibial: 197 mmHg MANJEET: 1.28 Digit: Transmetatarsal amputation. Right PVR Waveforms High thigh: Normal. Low thigh: Normal. Calf: Normal. Ankle: Normal. Transmetatarsal: Normal. Digit: Transmetatarsal amputation. LEFT SIDE AT REST Left Doppler Waveforms Dorsalis pedis: Multiphasic. Post tibial: Multiphasic. Left Pressures Brachial: 153 mmHg High thigh: greater than 255 mmHg Non-compressible arteries. Low thigh: greater than 255 mmHg Non-compressible arteries. Calf: 218 mmHg Partially non-compressible arteries. Ankle dorsalis pedis: 138 mmHg MANJEET: 0.90 Ankle posterior tibial: 108 mmHg MANJEET: 0.70 Digit: 98 mmHg Left PVR Waveforms High thigh: Normal. Low thigh: Normal. Calf: Normal. Ankle: Mildly dampened. Transmetatarsal: Moderately dampened. Digit: Moderately dampened. Type II diabetes mellitus with neurological manifestations 250.60 E11.49 Diagnosis Notes Drag & Drop to change diagnosis order Lymphedema of both lower extremities 457.1 I89.0 Diagnosis Notes Drag & Drop to change diagnosis order PVD (peripheral vascular disease) 443.9 I73.9 Diagnosis Notes Drag & Drop to change diagnosis order History of amputation of right great toe V49.71 Z89.411 Diagnosis Notes Drag & Drop to change diagnosis order Amputated toe of right foot 895.0 S98.131A Diagnosis Notes Drag & Drop to change diagnosis order Hammertoe of right foot 735.4 M20.41 Diagnosis Notes Drag & Drop to change diagnosis order Personal history of diabetic foot ulcer V12.29 Z86.31 Diagnosis Notes Drag & Drop to change diagnosis order Callus 700 L84 Diagnosis Notes Drag & Drop to change diagnosis order Diabetic ulcer of toe of left foot associated with type 2 diabetes mellitus, limited to breakdown of skin 250.80 E11.621 Diagnosis Notes Drag & Drop to change diagnosis order Swelling of right lower extremity 729.81 M79.89 Diagnosis Notes Drag & Drop to change diagnosis order Surgical wound dehiscence 998.32 T81.31XA Diagnosis Notes Drag & Drop to change diagnosis order Onychomycosis 110.1 B35.1 Diagnosis Notes Drag & Drop to change diagnosis order Skin ulcer of left great toe, limited to breakdown of skin 707.15 L97.521 Diagnosis Notes Drag & Drop to change diagnosis order Venous ulcer of left lower extremity without varicose veins 459.81 I87.2 Diagnosis Notes Drag & Drop to change diagnosis order Ulcer of left lower extremity, limited to breakdown of skin 707.10 L97.921 Diagnosis Notes Drag & Drop to change diagnosis order Venous ulcer of right lower extremity without varicose veins 459.81 I87.2 Diagnosis Notes Drag & Drop to change diagnosis order Ulcer of right lower extremity, limited to breakdown of skin 707.10 L97.911 documented in this encounter [facility] 06-22-2024 Instructions Bonnie Molina RN - 06/22/2024 3:19 PM EDT WOUND CARE INSTRUCTIONS- Shade Brambila Wound location: Bilateral Lower Leg Wounds Wash farrow wraps before using again to avoid reinfecting wounds. Attempt to change your dressing every day and when wet to keep from further breakdown. Elevate your legs several times a day for 30 minutes at a time to assist with decreasing swelling. - Gather supplies - Place down a clean work surface such as new paper towel or newly cleaned towel. - Clean all metal instruments with rubbing alcohol before and after each use. - Plastic garbage bag for old dressing - Wash your hands with soap and water before and after wound care. - Wash your foot with dial soap and water. Dry well between the toes. Bilateral Lower Extremity Wound Care: Wash wounds with: Vashe Apply to wound bed: Urgotul with silver them Drawtex over top of urgotul. Cover wounds with: 4x4 Gauze, ABD, Lightly wrap with conform, tape to secure.. Other: change dressings daily moisturize lower legs with vaseline daily - Apply Farrow wraps every morning: Apply compression first thing in the morning. OK to remove compression at bedtime. Compression must be removed if: it becomes wet or soiled If you have numbness or tingling in your foot or toes If you have increased pain If toes become cold or discolored - Avoid sitting with legs in a dependent position or standing for long periods of time. - Attempt to lay flat and elevate your legs above the level of your heart 2-3 times daily, for 30 minutes at a time. - Be sure to continue walking and/or calf pumps and exercises to mimic writing the alphabet with your foot, as instructed Foot care Many people with diabetes lose the feeling in their feet (neuropathy). Therefore, they might not know they have an injury that can lead to serious problems, such as foot removal (amputation). By taking care of your feet, most serious problems can be prevented. If you have problems checking your own feet, have a family member or friend help you. Easy steps to protect your feet: Check your feet every day for: dry or cracked skin, cuts, open sores, blisters, redness, swelling, corns, calluses, or toenail problems. Use a mirror if necessary. Report any problems to your doctor. Keep your feet clean and dry, especially between the toes. If your feet are dry or cracked use a moisturizing lotion at least daily but never between the toes. See your judicial clerk every three months for foot and nail care. Don't go barefoot. Wear shoes or slippers at all times. Wear comfortable shoes that fit well. Check inside your shoes for foreign objects or rough spots before putting on shoes. Always wear socks. Avoid using anything hot, such as heating pads, hot water bottles, hot tubs, or bath water. Check the temperature of bath water with your elbow not your foot. Take your shoes and socks off at every office visit to remind your doctor to check your feet. Also, never tape a dressing directly to the skin on your legs or feet. Instead, use a self-adherent bandage to avoid injuring the skin on your lower extremities If calluses form they can cause wound ulcers to appear under the callus, must be seen by [employer] every three months to prevent. Maintain controlled blood sugar, if blood sugar is consistently above 200 this can delay wound healing and aggravate neuropathy. - Control your sodium intake as instructed by provider To give your wound the best chance to heal: - Eat three balanced meals daily focusing on the protein - Control your blood sugar. Keep blood sugar less than 200 - Complete your wound care instructions as ordered - Vitamin C 500 mg twice daily - Multiple Vitamin Daily - Drink a protein shake daily - Premiere Clear or Glucerna for Diabetic patients, Nepro for renal patients and premiere for non-renal and non-diabetic patients Report any of the following signs and symptoms of infection to the Wound Center at [phone] or go to the Emergency Department: Fever or chills Increased drainage Green or yellow drainage Foul odor Increased pain Hardness around the wound Redness, warmth or swelling of the surrounding tissue Color change to the wound Evenings / Weekends / Holidays If you call the wound center at the phone number provided above, please leave a detailed message that includes your full name, birthday, and phone number. We are seeing patients during the day, so we will return your call within a 24-48 hr period in the order your call was received. There is not an on-call provider assigned to the wound center. If you have an emergency that needs to be addressed, please go to an Urgent Care or Emergency Room. Thank you for your cooperation and understanding. Due to the cold and flu season approaching us, if you have any symptoms such as a cough, fever, chills, nausea, vomiting, diarrhea, and/or body aches, please call and reschedule your appointment in the Wound Center. PLAN/ORDERS: Follow-up in the Wound Center with Dr Eric DPM in 2 weeks 07/06 at 200pm If you notice any warmth or redness notify Dr. Reyes and Go to ER. Continue aggressive nutritional support to assist wound healing, focusing on increasing protein intake, keeping blood sugars stable/controlled Wound care supplies were ordered through [facility], please call monthly for additional supplies at the phone number provided: . Continue wearing Farrow wraps for compression May consider HBOT again in the future Be sure to check your weight daily and follow up with HF clinic as scheduled. Discuss with HF clinic nurse about weight parameters and when to take lasix. Dr. Berny Reyes DPM/celina/evan documented in this encounter [facility] 06-22-2024 Nurse Note Nursing Documentation Pertinent Medical History: DM2, HTN, venous insufficiency, & heart failure Wound Etiology according to patient: leg swelling & wounds February 2024 Pt had right great toe amputation June 18, 2023 Patient arrived via: Ambulatory with [facility] Care Company/Nursing Facility: N/A Consent captured for debridement per Dr. Berny Reyes DPM and linda until 2024 Consent captured for debridement per Dr. Hu Pickard DPM and linda until September 2024 Anticoagulant Therapy: ASA 81mg ACTIVE CARE PER PROVIDER: Giovanni Bolanos DPM, Hu Pickard DPM, & Alfredo Moore DPM Wounds 1-30 previously closed WOUND # 34 LOCATION: Right Distal Medial Lower Leg-CLOSED 03/13/24 (February 2024) CLOSED 03/13/24, closed 03/29/24 Application Dates: Grafts are complete 01/07/2023 Apligraf 01/15/2023 Apligraf 01/21/2023 Apligraf 01/27/2023 Apligraf 02/04/2023 Apligraf WOUND # 35 LOCATION: Right Posterior Lower Leg (February 2024) Closed 03/29/24, closed 04/12/24 WOUND ASSESSMENT: Refer to Provider's Wound Assessment Note VASCULAR ASSESSMENT BY PROVIDER: See provider wound assessment note CHF History: Yes as of February 2022, Dr. Sadler in Cardiology EDEMA: Right Foot: 1+ Right Ankle: none Right Calf: 3+ Left Foot: 2+ Left Ankle: none Left Calf: 3+ Other: N/A MEASUREMENTS: in cm Right Calf: 32.4 Right Ankle: 22.4 Left Calf: 32.7 Left Ankle: 21.7 Length: 43.0 WOUND PHOTOGRAPHY:(last taken 06/07/24) DEBRIDEMENT PROCEDURE BY PROVIDER: Anesthetic Used: 2% lidogel applied by Stacy Arguello RN Other procedure: n/a Specimen collected:n/a WOUND TREATMENT PER MD ORDER: Wounds cleansed by mechanical debridement to allow provider to visualize wound base WOUND # 31 LOCATION: Left Anterior Lower Leg (February 2024) Closed 06/22/24 WOUND # 32 LOCATION: Left Posterior Lower Leg Cluster (February 2024) L: 8.3 cm x W: 5.1 cm x D: 0.1 cm WOUND # 33 LOCATION: Right Medial Lower Leg (February 2024) L: cm x W: cm x D: cm WOUND # 34 LOCATION: Right Posterior Inferior Leg (May 2024) L: 3.9 cm x W: 3.5 cm x D: 0.1 cm Cleansed with: Vashe Applied to naya-wound skin: skin prep, vaseline Applied to wound bed: Urgotul Ag, drawtex. Covered and secured with: ABD, kerlix. Tape. Other: tubi-tobacco wetter D double layer OLEGARIO WRAP/SurePress/Tubi-tobacco wetter: Foot is warm and pink before and after application. It was demonstrated to the patient how to check for adequate circulation. Patient voices understanding. If circulation becomes compromised by a change in color, increased pain, numbness or tingling to the area, the patient knows to remove the compression and elevate the leg above the heart. COMPRESSION: Double layer Tubi-tobacco wetter size D SPECIAL NEEDS: Coordination of care N/A Emotional support N/A OR set-up N/A Yarn Examiner N/A Incontinence needs N/A DME company: ordered 03/01/24 Farrow wraps, Supplies ordered 06/07/2024 x 30 days with 2 refills DISCHARGED in stable condition to: ambulatory with cane PLAN/ORDERS: Follow-up in the Wound Center with Dr Eric DPM in 2 weeks 07/06 at 200pm If you notice any warmth or redness notify Dr. Reyes and Go to ER. Continue aggressive nutritional support to assist wound healing, focusing on increasing protein intake, keeping blood sugars stable/controlled Wound care supplies were ordered through [facility], please call monthly for additional supplies at the phone number provided: . Continue wearing Farrow wraps for compression May consider HBOT again in the future Be sure to check your weight daily and follow up with HF clinic as scheduled. Discuss with HF clinic nurse about weight parameters and when to take lasix. EDUCATION: Continuation of current wound care, follow up. The patient/family was instructed how to cleanse the wound(s). Visual demonstration on how to apply the dressing with teach back method. Signs & symptoms of infection were reviewed: Increased redness, swelling, pain, green/yellow drainage, fever and/or chills would all need to be evaluated by a Physician. Patient received typed home-going wound care instructions and has expressed intent to comply. OTHER EDUCATION: Wash farrow wraps before using, Elevation More frequent wound care Education performed regarding lymphedema/edema: Elevation of extremity above the heart for 30 minutes three times daily and as needed Exercise such as writing the ABC's with your toes in the air, walking and/or calf pumps Wearing compression as ordered by provider Diet controlling of sodium as instructed by provider Use of medication to help control edema. UNIVERSAL PROTOCOL / SAFETY CHECKLIST Procedure to be Performed sharp debridement of lower leg wounds Sign In: 1550 A Moment of CARE was completed. Personnel directly involved with the procedure wore the appropriate PPE (Personal Protective Equipment). Patient/Surrogate Stated/Verified: PATIENT VERIFIED(optional for EMERGENT procedures): Patient name, Date of , Relevant allergies, and The intended procedure Time Out Communication: 5014 Intended patient and procedure match the source documents. Consent documented and matches the intended procedure. No relevant labs, photos, and/or imaging studies were applicable for review. Sign Out: 1620 SIGN OUT (optional for EMERGENT procedures): All instruments, equipment, possible retained foreign bodies accounted for. Current HBOT Status: Active or Complete - see screening below WOUND CENTER HYPERBARIC OXYGEN THERAPY SCREENING 1. Is the patient diabetic? (If No, skip to question 5) Yes 2. Does the patient have a lower extremity wound? Yes 3. Is there exposed/involved tendon or bone? 4. Has the wound been present for 30 days? Yes If Yes to ALL questions above, consult the Hyperbaric Center 5. Has the patient been diagnosed with osteomyelitis? No 6. Has the patient had a previous skin graft or flap at the wound? No 7. Has the patient had or been offered vascular intervention/evaluation? No 8. Does the patient have a wound at an amputation site? Yes 9. Has the patient had radiation therapy at the site of the problem? No If Yes to ANY of questions 5-9, consult the Hyperbaric Center [facility] 06-22-2024 Nurse Note Nursing Documentation Pertinent Medical History: DM2, HTN, venous insufficiency, & heart failure Wound Etiology according to patient: leg swelling & wounds February 2024 Pt had right great toe amputation June 18, 2023 Patient arrived via: Ambulatory with [facility] Care Company/Nursing Facility: N/A Consent captured for debridement per Dr. Berny Reyes DPM and linda until 2024 Consent captured for debridement per Dr. Hu Pickard DPM and linda until September 2024 Anticoagulant Therapy: ASA 81mg ACTIVE CARE PER PROVIDER: Giovanni HAM, Hu HAM, & Alfredo Moore DPM Wounds 1-30 previously closed WOUND # 34 LOCATION: Right Distal Medial Lower Leg-CLOSED 03/13/24 (February 2024) CLOSED 03/13/24, closed 03/29/24 Application Dates: Grafts are complete 01/07/2023 Apligraf 01/15/2023 Apligraf 01/21/2023 Apligraf 01/27/2023 Apligraf 02/04/2023 Apligraf WOUND # 35 LOCATION: Right Posterior Lower Leg (February 2024) Closed 03/29/24, closed 04/12/24 WOUND ASSESSMENT: Refer to Provider's Wound Assessment Note VASCULAR ASSESSMENT BY PROVIDER: See provider wound assessment note CHF History: Yes as of February 2022, Dr. Sadler in Cardiology EDEMA: Right Foot: 1+ Right Ankle: none Right Calf: 3+ Left Foot: 2+ Left Ankle: none Left Calf: 3+ Other: N/A MEASUREMENTS: in cm Right Calf: 32.4 Right Ankle: 22.4 Left Calf: 32.7 Left Ankle: 21.7 Length: 43.0 WOUND PHOTOGRAPHY:(last taken 06/07/24) DEBRIDEMENT PROCEDURE BY PROVIDER: Anesthetic Used: 2% lidogel applied by Stacy Arguello RN Other procedure: n/a Specimen collected:n/a WOUND TREATMENT PER MD ORDER: Wounds cleansed by mechanical debridement to allow provider to visualize wound base WOUND # 31 LOCATION: Left Anterior Lower Leg (February 2024) Closed 06/22/24 WOUND # 32 LOCATION: Left Posterior Lower Leg Cluster (February 2024) L: 8.3 cm x W: 5.1 cm x D: 0.1 cm WOUND # 33 LOCATION: Right Medial Lower Leg (February 2024) L: cm x W: cm x D: cm WOUND # 34 LOCATION: Right Posterior Inferior Leg (May 2024) L: 3.9 cm x W: 3.5 cm x D: 0.1 cm Cleansed with: Vashe Applied to naya-wound skin: skin prep, vaseline Applied to wound bed: Urgotul Ag, drawtex. Covered and secured with: ABD, kerlix. Tape. Other: tubi-tobacco wetter D double layer OLEGARIO WRAP/SurePress/Tubi-tobacco wetter: Foot is warm and pink before and after application. It was demonstrated to the patient how to check for adequate circulation. Patient voices understanding. If circulation becomes compromised by a change in color, increased pain, numbness or tingling to the area, the patient knows to remove the compression and elevate the leg above the heart. COMPRESSION: Double layer Tubi-tobacco wetter size D SPECIAL NEEDS: Coordination of care N/A Emotional support N/A OR set-up N/A Yarn Examiner N/A Incontinence needs N/A DME company: ordered 03/01/24 Farrow wraps, Supplies ordered 06/07/2024 x 30 days with 2 refills DISCHARGED in stable condition to: ambulatory with cane PLAN/ORDERS: Follow-up in the Wound Center with Dr Eric DPM in 2 weeks 07/06 at 200pm If you notice any warmth or redness notify Dr. Reyes and Go to ER. Continue aggressive nutritional support to assist wound healing, focusing on increasing protein intake, keeping blood sugars stable/controlled Wound care supplies were ordered through [facility], please call monthly for additional supplies at the phone number provided: . Continue wearing Farrow wraps for compression May consider HBOT again in the future Be sure to check your weight daily and follow up with HF clinic as scheduled. Discuss with HF clinic nurse about weight parameters and when to take lasix. EDUCATION: Continuation of current wound care, follow up. The patient/family was instructed how to cleanse the wound(s). Visual demonstration on how to apply the dressing with teach back method. Signs & symptoms of infection were reviewed: Increased redness, swelling, pain, green/yellow drainage, fever and/or chills would all need to be evaluated by a Physician. Patient received typed home-going wound care instructions and has expressed intent to comply. OTHER EDUCATION: Wash farrow wraps before using, Elevation More frequent wound care Education performed regarding lymphedema/edema: Elevation of extremity above the heart for 30 minutes three times daily and as needed Exercise such as writing the ABC's with your toes in the air, walking and/or calf pumps Wearing compression as ordered by provider Diet controlling of sodium as instructed by provider Use of medication to help control edema. UNIVERSAL PROTOCOL / SAFETY CHECKLIST Procedure to be Performed sharp debridement of lower leg wounds Sign In: 1550 A Moment of CARE was completed. Personnel directly involved with the procedure wore the appropriate PPE (Personal Protective Equipment). Patient/Surrogate Stated/Verified: PATIENT VERIFIED(optional for EMERGENT procedures): Patient name, Date of , Relevant allergies, and The intended procedure Time Out Communication: 6555 Intended patient and procedure match the source documents. Consent documented and matches the intended procedure. No relevant labs, photos, and/or imaging studies were applicable for review. Sign Out: 1620 SIGN OUT (optional for EMERGENT procedures): All instruments, equipment, possible retained foreign bodies accounted for. Current HBOT Status: Active or Complete - see screening below WOUND CENTER HYPERBARIC OXYGEN THERAPY SCREENING 1. Is the patient diabetic? (If No, skip to question 5) Yes 2. Does the patient have a lower extremity wound? Yes 3. Is there exposed/involved tendon or bone? 4. Has the wound been present for 30 days? Yes If Yes to ALL questions above, consult the Hyperbaric Center 5. Has the patient been diagnosed with osteomyelitis? No 6. Has the patient had a previous skin graft or flap at the wound? No 7. Has the patient had or been offered vascular intervention/evaluation? No 8. Does the patient have a wound at an amputation site? Yes 9. Has the patient had radiation therapy at the site of the problem? No If Yes to ANY of questions 5-9, consult the Hyperbaric Center documented in this encounter [facility] 06-20-2024 History of Presen t illness Narrative Images from the original note were not included. [facility] AT [address] [place] [address] Dept: [phone] Dept PHYSICAL THERAPY RE-EVALUATION Pelvic Health Patient Name: Shade Brambila : 1960 Date of Service: 06/20/2024 Referring Provider: Hamlet Garay MD Visit #: 5 Diagnosis: OAB (overactive bladder) Mechanism of injury: Pt reports she was doing Hyperbarics for her leg wound 11/2022 to 03/2023, then pt states her bladder issues started in 05/2023. Pt reports it is mostly at night with increased nocturia 3 x/ night and urgency UI. Pt's MD did recommend she reduce diet soda intake, elevated legs 2-3 hours before bed and stop drinking 2 hours before bed. Pt reports nocturia reduced to 1 x/ night. Patient Preferences: Vanessa Precautions/Red Flags: Yes S/P operations on 08/19/[address] Alfredo Ureña Robotic assisted total laparoscopic hysterectomy Bilateral salpingo-oophorectomy [place] lymph node mapping Cystoscopy Path: FIGO grade 1 EAC of uterus She did not need adjuvant therapy. Patient had hyperbaric treatments for wound on LLE. Afterwards she noticed urgency and urge incontinence. She denies prolapse symptoms for at least months. She has not tried a pessary. She denies PAO with coughing, laughing, and sneezing. She reports UUI, mainly at night She does have symptoms of urinary urgency and frequency. She does feel that she empties her bladder completely. She has not tried overactive bladder medications. Avoid Estrogen d/t Uterine CA Subjective General Comments: Pt is here today for a re-assessment. Pt has been seen for 4 visits to date. Pt states some days are not good, some days are good. Good days: can make it to the bathroom without UI. Not good days: Still has UI with urgency. Pain: Denies Current Level of Function: Independent but with limitations d/t co-morbidities. Patient s Stated Goal: Working towards Objective Observations Surgical incisions (location, observations): Pt wearing B would wraps and R knee brace (compression) : the same 06/20/24. Functional mobility: Independent but uses a std cane for ambulation for balance and stability. The same 06/20/24. Ortho screen Posture Observations: Pt demonstrates flexed posture at hips and trunk, decrease static and dynamic standing balance. The same 06/20/24. Lumbar ROM: Limited in standing d/t poor balance. The same 06/20/24. Hip ROM: WFL but limited d/t decreased flexibility LQ Strength L R HIP Flexion 4/5 4/5 Extension 3-/5 3-/5 Abduction 3-/5 3-/5 KNEE Flexion 4+/5 4/5 Extension 5/5 5/5 ANKLE Dorsiflexion 3/5 3/5 Plantarflexion 2+/5 2+/5 CORE 2+/5 Flexibility: LEFT RIGHT Hip Adductors MODERATE MODERATE Hip External Rotators MODERATE MODERATE Iliopsoas SEVERE SEVERE Hamstrings SEVERE SEVERE Assessment Pt is here today for a re-assessment. Pt has been seen for 4 visits to date. Rehab Potential: Good Goals Active General/Ortho Patient will be independent with HEP. (Progressing) Start: 05/23/24 Expected End: 08/22/24 Patient will increase strength in B LE to >4/5 to 5/5 and core to 3/5 to be able to improve PF function and general mobility to be able to reach bathroom in appropriate time without UI. (Progressing) Start: 05/23/24 Expected End: 08/22/24 Pelvic Health Pt will reduce summary score on gender appropriate NIH-CPSI to 4/45 to improve patient's perceived quality of life (Progressing) Start: 05/23/24 Expected End: 08/22/24 Pt will reduce use of pads to 0 pads per night (Progressing) Start: 05/23/24 Expected End: 08/22/24 Pt will reduce urinary incontinence to complete elimination (Progressing) Start: 05/23/24 Expected End: 08/22/24 Plan Frequency and Duration: Intermittent Therapeutic Contents: client education, home exercise program, sensory re-education/desensitization, therapeutic activities, and bladder re-training Plan for next session: Pt to focus on endurance Kegel, stretching and strengthening exercises, bladder re-training principles and follow up in 2 weeks. Next appointment 07/04/24 Risks and benefits were discussed with the patient and/or family, and the patient and/or family participated with the plan of care and agrees. Treatment Therapeutic Activity # of Activities: 5 Therapeutic Activity 1: HEP 06/20/24: Pt is independent Activity 1 Comment: stretches: hip add-standing at counter, hip flex -in chair, lumbar extension -against counter Therapeutic Activity 2: PF strengtrhenin06/20/24 Endurance Kegel -progress to 10 second hold Activity 2 Comment: Endurance Kegel: progressed patient to endurance Kegel ( hold 10 seconds/rest 10 seconds ) to promote improved strength endurance of PF muscles to further improve PF muscle function: reduce UI and urinary urgency. Therapeutic Activity 3: Bladder re-training 06/20/24: discussed good techniques and functional training: pre-kegel and exhaling with sit<>stand, Helping with decreasing UI with sit>stand Activity 3 Comment: Discussed bladder irritants/diet and increasing water intake Therapeutic Activity 4: 06/20/24: reviewed verbally and with practice. Diaphragmatic breathing-pt required max Vc's for proper technique. Pt very challenged with rib/diaphram expansion. Therapeutic Activity 5: Re-assessment Activity 5 Comment: Re-assessment: Re-assessed patients objective & subjective measures, reviewed patients POC, addressed goals and patients progress. Discussed D/C planning, discussed continuation of current HEP for maximum benefit and carryover to maintain pain free function. Patient with verbal acknowledgement and understanding. Home Exercise Program: verbal review Time Entry Total Treatment Time Start Time: 1512 Stop Time: 1553 Time Calculation (min): 41 min PT Therapeutic Procedures Time Entry Therapeutic Activity Time Entry: 41 Hu Hawley PT documented in this encounter [facility] 06-13-2024 History of Presen t illness Narrative Images from the original note were not included. [facility] AT [address] [place] [address] Dept: [phone] Dept PHYSICAL THERAPY TREATMENT Pelvic Health Patient Name: Shade Brambila : 1960 Date of Service: 06/13/2024 Referring Provider: Hamlet Garay MD Visit #: 4 Diagnosis: OAB (overactive bladder) Mechanism of injury: Pt reports she was doing Hyperbarics for her leg wound 11/2022 to 03/2023, then pt states her bladder issues started in 05/2023. Pt reports it is mostly at night with increased nocturia 3 x/ night and urgency UI. Pt's MD did recommend she reduce diet soda intake, elevated legs 2-3 hours before bed and stop drinking 2 hours before bed. Pt reports nocturia reduced to 1 x/ night. Patient Preferences: Vanessa Precautions/Red Flags: Yes S/P operations on 08/19/[address] Alfredo Ureña Robotic assisted total laparoscopic hysterectomy Bilateral salpingo-oophorectomy [place] lymph node mapping Cystoscopy Path: FIGO grade 1 EAC of uterus She did not need adjuvant therapy. Patient had hyperbaric treatments for wound on LLE. Afterwards she noticed urgency and urge incontinence. She denies prolapse symptoms for at least months. She has not tried a pessary. She denies PAO with coughing, laughing, and sneezing. She reports UUI, mainly at night She does have symptoms of urinary urgency and frequency. She does feel that she empties her bladder completely. She has not tried overactive bladder medications. Avoid Estrogen d/t Uterine CA Subjective Pt had to take lasix for increased water retention. Pt reports she is working on functional Kegel with sit>stand and coordinated breathing and notes reduced UI with sit > stand Compliance with HEP: Yes Objective Objective measurements not taken today. Treatment Therapeutic Activity # of Activities: 4 Therapeutic Activity 1: HEP 06/13/24: Pt is independent Activity 1 Comment: stretches: hip add-standing at counter, hip flex -in chair, lumbar extension -against counter Therapeutic Activity 2: PF strengtrhenin06/13/24 Progressed to endurance Kegel Activity 2 Comment: Endurance Kegel: progressed patient to endurance Kegel ( hold 5 seconds/rest 10 seconds ) to promote improved strength endurance of PF muscles to further improve PF muscle function: reduce UI and urinary urgency. Therapeutic Activity 3: Bladder re-training 06/08/24: discussed good techniques and functional training: pre-kegel and exhaling with sit<>stand Activity 3 Comment: Discussed bladder irritants/diet and increasing water intake Therapeutic Activity 4: Diaphragmatic breathing-pt required max Vc's for proper technique Activity 4 Comment: Diaphragmatic Breathing: Educated patient and discussed rational, use, indications and benefits to: reduce bladder anxiety, stretch/relax PF, reset vagal/ vagus nervous system, lower HR & BP and improve overall lung capacity. Verbal and written information provided with patient demonstration to ensure proper technique Home Exercise Program: Progressed home exercise program Assessment Skilled physical therapy interventions utilized to improve patient s impairments and work towards established goals. Patient response to treatment: Pt making progress toward goals with increasing PF awareness and reducing UI with sit to stand activities. Pt challenged with diaphragmatic breathing and is limited with co-morbidities. Patient will benefit from continued physical therapy to address strength deficits and PF/Bladder dysfunctions to eliminate UI and improve overall quality of life. The rationale for today s treatment was explained to the patient. Verbal cues were provided for correct form with all exercises. Advised patient to continue with Home Exercise Program (HEP). Goals General/Ortho Patient will be independent with HEP. (Progressing) Start: 05/23/24 Expected End: 08/22/24 Patient will increase strength in B LE to >4/5 to 5/5 and core to 3/5 to be able to improve PF function and general mobility to be able to reach bathroom in appropriate time without UI. (Progressing) Start: 05/23/24 Expected End: 08/22/24 Pelvic Health Pt will reduce summary score on gender appropriate NIH-CPSI to 4/45 to improve patient's perceived quality of life (Progressing) Start: 05/23/24 Expected End: 08/22/24 Pt will reduce use of pads to 0 pads per night (Progressing) Start: 05/23/24 Expected End: 08/22/24 Pt will reduce urinary incontinence to complete elimination (Progressing) Start: 05/23/24 Expected End: 08/22/24 Plan Plan for next session: Re-assess and progress Kegel as tolerated. Time Entry Total Treatment Time Start Time: 1503 Stop Time: 1545 Time Calculation (min): 42 min PT Therapeutic Procedures Time Entry Therapeutic Activity Time Entry: 42 Hu Hawley PT documented in this encounter [facility] [email or web address] 06-09-2024 History of Presen t illness Narrative Images from the original note were not included. [facility] [place] [facility] OUTPATIENT VISIT DATE June 09, 2024 OUTPATIENT VISIT TYPE ESTABLISHED PRIMARY CARE PHYSICIAN: Eldon Gill DO CHIEF COMPLAINT: Patient presents with: Breathing Problem HISTORY OF PRESENT ILLNESS: Shade Brambila is a 63 year old female who presents today for a follow-up visit in the [facility]. The patient was last seen in office 12/16. The following changes were made at that time: none. She was last seen by Cardiology on 03/06. Patient has had 3 hospitalizations and/or emergency room encounters in the last 12 months. Most recent ED visit was from 11/28 for management of hypertension and heart failure symptoms. Blood pressure upon arrival to ED was 195/95 mmHg. NT BNP was elevated >5000. She was treated with IV lasix 40 mg. She was discharged home on 20 mg lasix daily. Today, the patient reports feeling okay. Lives alone at home. Has trouble balancing. Uses a cane to get around. Goes to [facility] for PT. States she took a half tablet of lasix this morning and then again two days prior. She does report increase in shortness of breath. Denies chest pain, fever, chills, dizziness or lightheadedness. Reports orthopnea. [place] she could not catch her breath. She sat in her recliner for some time and then went to bed and did not wake up through the night due to breathing. Does not wear CPAP. States she dropped it. Sees her PCP in a couple of weeks and will discuss this with her. Continues to monitor her sodium and fluids. She has been drinking more water and less soda. States swelling started about 1-2 weeks ago. Swelling does go down in the morning. Follows up in wound care every 2 weeks. She wears wraps to both of her legs. States she's been eating popcorn at night. This is from a bag. She is not sure how much sodium is in each bag. IMPRESSION: NYHA Functional Class: II Stage: C heart failure Shade Brambila is a 63 year-old female who presents to the Heart Failure Clinic for follow up. She appears minimally hypervolemic on examination with swelling to lower extremities. Will have her take 20 mg lasix for 3 days. She is to weigh herself if able. She is to call the office next week if she does not see improvement in swelling or weight. Provided instructions to patient on how to stabilize herself when standing on the scale. Educated on low sodium diet and fluid restriction. Advised patient to read nutrition labels regarding sodium intake. PLAN AND RECOMMENDATIONS: 1. Chronic heart failure with preserved ejection fraction (HCC) - ICD9: 428.9, ICD10: I50.32 (primary diagnosis) - daily weights, call office if weight increases 3-4 lbs in a 1-4 day period -2 gm low sodium diet -activity as tolerated, rest breaks as needed -unable to tolerate spironolactone due to hyperkalemia -lasix 20 mg as needed -take 20 mg lasix for 3 days -25 mg jardiance once a day -repeat echo in future -follow up in HF Clinic 12/14/2024 or sooner if needed 2. Primary hypertension - ICD9: 401.9, ICD10: I10 -BP suboptimal during visit 156/75 mmHg (had not taken meds yet) -encourage DASH/low sodium diet -encourage exercise with rest breaks as needed -goal BP <130/80 mmHg -continue home BP monitoring 3. Mixed hyperlipidemia - ICD9: 272.2, ICD10: E78.2 -continue atorvastatin -last lipid panel 08/15/2022; LDL 117 HDL 55, total 184 Follow up appointment with Dr. Sadler September 12, 2024 PAST MEDICAL HISTORY Diagnosis Date Charcot left foot due to diabetes mellitus (HCC) 05/2013 subsequent to left foot fracture Chronic ulcer of great toe of right foot (HCC) 06/14/2023 Congestive heart failure (HCC) Depression Diabetes (HCC) Diabetic ulcer of posterior right heel (HCC) 02/06/2020 Endometrial cancer (HCC) Foot fracture, left 05/2013 Charcot neuroarthropathy HTN (hypertension) Obesity NELLY (obstructive sleep apnea) Renal disorder on vasotec to protect kidneys rt diabetes since 1998. Vitamin D deficiency 01/05/2017 PAST SURGICAL HISTORY Procedure Laterality Date AMPUTATION TOE,MT-P JT Right 07/2022 Hallux AMPUTATION TOE,MT-P JT Right 10/2023 removal of remaining right toes DILATION & CURETTAGE DX&/THER NONOBSTETRIC x3 EXTENSIVE HAND SURGERY Dupuytren contracture TONSILLECTOMY HX TOTAL ABDOM HYSTERECTOMY 08/2023 with BSO Social History Tobacco Use Smoking status: Never Passive exposure: Never Smokeless tobacco: Never Vaping Use Vaping status: Never Used Substance Use Topics Alcohol use: Yes Comment: Occ - 3 glasses of wine a year Drug use: No Family History Problem Relation Age of Onset Hypertension Mother other (polycystic kidney disease) Mother Heart Father CHF Hypertension Father Diabetes Brother other (testicular cancer) Brother Coronary Artery Disease Brother MD and at age 45 other (CHF) Paternal Grandmother Cancer Paternal Aunt breast [place] ALLERGIES Allergen Reactions Amoxicillin Unknown Patient does not remember reaction Codeine Intolerance Patient states Makes her Hyper Morphine Intolerance Difficulty waking up / groggy CURRENT MEDICATIONS: Current Outpatient Medications Medication Sig Dispense Refill fluconazole (DIFLUCAN) 150 mg tablet Take 1 tablet by mouth every 72 hours. Take one pill. If no improvement in 72 hours, take an additional dose (Patient taking differently: Take 150 mg by mouth every 72 hours. Take one pill. If no improvement in 72 hours, take an additional dose) 2 tablet 0 metFORMIN (GLUCOPHAGE) 1,000 mg tablet Take 1 tablet by mouth daily with lunch. 90 tablet 3 insulin regular human, CONCENTRATED 500 UNIT/ML, (HUMULIN R) 500 unit/mL (3 mL) inpn 40 units sc at breakfast, 100 units at lunch, 70 units at supper. 42 mL 3 honey (MEDIHONEY) 100 % pste Apply thin layer of medihoney to bilateral lower leg wounds. Change daily. Patient should start on March 31, 2024. 44 mL 2 ACCU-CHEK JOSE PLUS TEST STRP test strip USE TO TEST BLOOD GLUCOSE 3 TIMES DAILY 300 Strip 1 enalapril (VASOTEC) 20 mg tablet Take 0.5 tablets by mouth two times a day. atorvastatin (LIPITOR) 80 mg tablet take 1 tablet by mouth every day 90 tablet 3 furosemide (LASIX) 20 mg tablet Take 20 mg by mouth as needed (for increase in weight or leg swelling). take 20mg as needed for swelling ascorbic acid (VITAMIN C ORAL) Take by mouth. aspirin, enteric coated (ASPIRIN, ENTERIC COATED) 81 mg EC tablet Take 81 mg by mouth once daily. fluticasone (FLONASE) 50 mcg/actuation nasal spray Use 2 Sprays in each nostril once daily. (Patient taking differently: Use 2 Sprays in each nostril as needed.) 1 Each 3 cyanocobalamin, vitamin B-12, 1,000 mcg/mL kit 1,000 mcg by INJECTION(UNSPECIFIED PARENTERAL ROUTES) route once every month. JARDIANCE 25 mg tablet take 1 tablet by mouth every day with breakfast (Patient taking differently: Take 25 mg by mouth daily with lunch.) 90 tablet 3 CPAP/BIPAP/OTHER New set up: Settings 5 - 15 cm H2O, suitable mask per pt preference, chin strap, head gear, humidity, tubing, lifetime supplies. G47.33 NELLY 1 Each 0 Blood Pressure Monitor Please monitor blood pressure 1-2 hours after taking morning medications. 1 Kit 0 Zinc 50 mg tab Take 50 mg by mouth once daily. multivit,thx,calcium,iron,mins (MULTIVITAMIN AND MINERAL ORAL) Take 1 tablet by mouth once daily. ibuprofen (ADVIL ORAL) Take 3 tablets by mouth as needed. FLUoxetine (PROZAC) 40 mg capsule Take by mouth q 24 HR. lancets (ONE TOUCH DELICA) 33 gauge USE TO BLOOD GLUCOSE 3 TIMES DAILY. INSULIN DEPENDENT E11.3299, E11.65, Z79.4 300 Each 3 insulin needles, DISPOSABLE, (BD INSULIN PEN NEEDLE UF) 31 gauge x 5/16 FOUR DAILY FOR INSULIN INJECTIONS. 400 Each 1 Blood-Glucose Meter [facility] Use to test blood glucose 3 times daily. Insulin Dependent E11.3299, E11.65, Z79.4 1 Each 0 Cholecalciferol, Vitamin D3, 50 mcg (2,000 unit) cap Take 1 tablet by mouth once daily. Current Facility-Administered Medications Medication Dose Route Frequency Provider Last Rate Last Admin cyanocobalamin 1,000 mcg injection 1,000 mcg INTRAMUSCULAR q 4 WEEKS Eldon Gill DO 1,000 mcg at 05/09/24 1345 REVIEW OF SYSTEMS: GENERAL: Positive for:Weight gain HEENT: Positive for:Glasses NECK: Negative for: Swelling, Pain, Stiffness RESPIRATORY: Positive for: Shortness of breath GASTROINTESTINAL: Negative for: Trouble swallowing, Heartburn, Change in bowel habits, Blood in stool, Dark black stools MUSCULOSKELETAL: Positive for: Muscle or joint pain NEUROLOGIC/PSYCHIATRIC: Negative for: Weakness, Paralysis, Numbness, Tingling, Tremor, Nervousness or anxiety, Depressed mood, Memory loss SKIN: Negative for: Rash, Itching HEMATOLOGICAL/LYMPHATIC: Positive for: Easy bruising and Easy bleeding ENDOCRINE: Negative for: Heat or Cold Intolerance, Excessive Sweating, Frequent Urination, Frequent Thirst PHYSICAL EXAMINATION: BP 156/76 Pulse 77 Wt 106.6 kg (235 lb) SpO2 98% BMI 35.74 kg/m General: Normal exam, no distress, overweight, uses cane Skin: No clubbing, no cyanosis. Eyes: Extra ocular movements intact Neck: Neck veins are not distended Lungs: Chest clear to auscultation Heart: Rhythm: irregularly irregular, Rate: normal, no murmur Abdomen: Normal Extremities: edema: 1+ Peripheral Pulses: Normal CARDIOVASCULAR MEDICINE TESTING: Latest Reference Range & Units 01/11/24 14:19 Sodium 136 - 144 mmol/L 137 Potassium 3.7 - 5.1 mmol/L 5.3 (H) Chloride 97 - 105 mmol/L 103 CO2 22 - 30 mmol/L 26 BUN 7 - 21 mg/dL 52 (H) Creatinine 0.58 - 0.96 mg/dL 1.05 (H) Glucose 74 - 99 mg/dL 204 (H) Calcium 8.5 - 10.2 mg/dL 9.6 Anion Gap 9 - 18 mmol/L 8 (L) NT Pro BNP <125 pg/mL 954 (H) eGFR >=60 mL/min/1.73m 60 (H): Data is abnormally high (L): Data is abnormally low CONCLUSIONS: 1. SPECT Perfusion Study: Normal. 2. There is no scintigraphic evidence for inducible ischemia. 3. No evidence of scarred myocardium. 4. Left ventricle is normal in size. The left ventricle systolic function is normal. 5. This is a low risk scan. Gated Stress IR:3D LVEF % 70 Echocardiogram 02/2022: I have personally reviewed the Laboratory Testing and Echocardiogram. COUNSELING: We discussed the following non-pharmacological measures during this visit: Smoking and alcohol abstinence/cessation, if applicable Dietary and medication compliance Monitoring daily weights and blood pressures Exercise regimen When to call our office Heart Failure Education Booklet: Previously given. Discussed red flags and when to call MD/RN BABY or go to ED. Medications reconciled at end of visit: yes I spent 30 minutes in this visit, with more than 50% of the time devoted to patient counseling. SIGNATURE: Ayan Wallis APRN.CNP PATIENT NAME: Shade Brambila DATE: June 09, 2024 TIME:1238 documented in this encounter [facility] 06-09-2024 Note [facility] 06-09-2024 Instructions Ayan Wallis APRN.CNP - 06/09/2024 12:45 PM EDT Continue current medications as prescribed. You may take additional 20 mg lasix for 3 days. Increase foods high in potassium such bananas or orange. 2. Weigh yourself daily. Call me if your weight increases by 3-4 pounds in a 1-4 day period of time. 3. Continue low salt (2000 mg per day) diet. 4. Be as active as you are able. If you get tired, just stop and rest for a while. 5. Come back and see me on December 14 at 1:00. If you have any question or concern, you can call me at [phone]. documented in this encounter [facility] 06-08-2024 History of Presen t illness Narrative Images from the original note were not included. JENNIFER [place] [facility] [place] [address] [place] [address] Dept: [phone] Dept PHYSICAL THERAPY TREATMENT Pelvic Health Patient Name: Shade Brambila : 1960 Date of Service: 06/08/2024 Referring Provider: Hamlet Garay MD Visit #: 3 Diagnosis: OAB (overactive bladder) Mechanism of injury: Pt reports she was doing Hyperbarics for her leg wound 11/2022 to 03/2023, then pt states her bladder issues started in 05/2023. Pt reports it is mostly at night with increased nocturia 3 x/ night and urgency UI. Pt's MD did recommend she reduce diet soda intake, elevated legs 2-3 hours before bed and stop drinking 2 hours before bed. Pt reports nocturia reduced to 1 x/ night. Patient Preferences: Vanessa Precautions/Red Flags: Yes S/P operations on 08/19/[address] Alfredo Ureña Robotic assisted total laparoscopic hysterectomy Bilateral salpingo-oophorectomy [place] lymph node mapping Cystoscopy Path: FIGO grade 1 EAC of uterus She did not need adjuvant therapy. Patient had hyperbaric treatments for wound on LLE. Afterwards she noticed urgency and urge incontinence. She denies prolapse symptoms for at least months. She has not tried a pessary. She denies PAO with coughing, laughing, and sneezing. She reports UUI, mainly at night She does have symptoms of urinary urgency and frequency. She does feel that she empties her bladder completely. She has not tried overactive bladder medications. Avoid Estrogen d/t Uterine CA Subjective Pt states her bladder is better. She is working on her night time strategies and day time urge suppression. Pt reports less amount and less occurrences of UI Compliance with HEP: Yes Objective Objective measurements not taken today. Treatment Therapeutic Activity # of Activities: 4 Therapeutic Activity 1: HEP 06/08/24: Verbal review. Pt is independent Activity 1 Comment: stretches: hip add-standing at counter, ., , hip flex -in chair, lumbar extension -against counter Therapeutic Activity 2: PF strengtrhenin06/08/24 Verbal reivew. Discussed completing in different positions and continue to focus on isolated contractions with coordinated breathing Activity 2 Comment: Quick Kegel Therapeutic Activity 3: Bladder re-training 06/08/24: discussed good techniques and functional training: pre-kegel and exhaling with sit<>stand Activity 3 Comment: Discussed bladder irritants/diet and increasing water intake Home Exercise Program: Progressed home exercise program Assessment Skilled physical therapy interventions utilized to improve patient s impairments and work towards established goals. Patient response to treatment: Patient is making progress toward goals with reducing UI amount and occurrence, making good effort with night time strategies and day time frequency/urge suppression. Pt improving with quick Kegel with isolated PF contraction with coordinated breathing. Pt working on core/LE strengthening in other PT. Patient will benefit from continued physical therapy to address PF/bladder dysfunctions to eliminate UI and improver overall quality of life. The rationale for today s treatment was explained to the patient. Verbal cues were provided for correct form with all exercises. Advised patient to continue with Home Exercise Program (HEP). Goals General/Ortho Patient will be independent with HEP. (Progressing) Start: 05/23/24 Expected End: 08/22/24 Patient will increase strength in B LE to >4/5 to 5/5 and core to 3/5 to be able to improve PF function and general mobility to be able to reach bathroom in appropriate time without UI. (Progressing) Start: 05/23/24 Expected End: 08/22/24 Pelvic Health Pt will reduce summary score on gender appropriate NIH-CPSI to 4/45 to improve patient's perceived quality of life (Progressing) Start: 05/23/24 Expected End: 08/22/24 Pt will reduce use of pads to 0 pads per night (Progressing) Start: 05/23/24 Expected End: 08/22/24 Pt will reduce urinary incontinence to complete elimination (Progressing) Start: 05/23/24 Expected End: 08/22/24 Plan Plan for next session: Progress Kegel and HEP as tolerated. Time Entry Total Treatment Time Start Time: 1556 Stop Time: 1639 Time Calculation (min): 43 min PT Therapeutic Procedures Time Entry Therapeutic Activity Time Entry: 43 Hu Hawley PT documented in this encounter [facility] 06-08-2024 Note [facility] 06-08-2024 History of Presen t illness Narrative Date of Visit: 06/07/2024 Problem list reviewed. CHIEF COMPLAINT: check B/L lower leg wounds DM II A1c 8.3 (10/07/23) DLS 02/08/24 HISTORY OF PRESENT ILLNESS: Patient last seen 05/24/24. wounds worsened with increased drainage to posterior aspect of lower leg. Here today for B/L lower leg wound check. she is wearing her farrow wraps today Denies N/V/F/C/D/SOB/CP/LP. She relates she can't feel feet well due to neuropathy. She has numbness and toe amputations. Referred by Dr. Dasilva. 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 Right 2nd toe amputation and hallux I&D 10/28/22. Hx s/p RT toe amp 3,4,5 (DOS 10/14/23) DME DM inserts 08/24/23 rx circade wraps 08/14/22 CURRENT MEDICATIONS: Percocet Oral Tablet 5-325 MG (10/27/2023) Take 1 tablet every 6 hours as needed for 4 day(s) Clindamycin HCl Oral Capsule 300 MG (11/26/2022) TAKE 1 CAPSULE BY MOUTH EVERY 8 HOURS FOR 7 DAYS. oxyCODONE-Acetaminophen Oral Tablet 5-325 MG (10/28/2022) Ketorolac Tromethamine Ophthalmic Solution 0.5 % (04/26/2023) Accu-Chek Jose Plus In Vitro Strip (09/23/2022) Sulfamethoxazole-Trimethoprim Oral Tablet 800-160 MG (06/24/2023) Atorvastatin Calcium Oral Tablet 80 MG (06/13/2023) miSOPROStol Oral Tablet 200 MCG (06/15/2023) TAKE 2 TABLETS BY MOUTH THE DAY PRIOR TO PROCEDURE AT BEDTIME WITH FOOD Fluticasone Propionate Nasal Suspension 50 MCG/ACT (12/15/2022) USE 2 SPRAYS IN EACH NOSTRIL DAILY X1 WEEK,THEN 1 SPRAY IN EACH NOSTRIL DAILY THEREAFTER NEEDED Nitrofurantoin Monohyd Macro Oral Capsule 100 MG (02/08/2023) Cephalexin Oral Capsule 500 MG (09/26/2022) Doxycycline Hyclate Oral Capsule 100 MG (11/10/2022) Fluconazole Oral Tablet 200 MG (03/20/2024) TAKE 1 TABLET EVERY DAY FOR 21 DAYS Bactrim DS Oral Tablet 800-160 MG (06/24/2023) Take 1 tablet twice a day for 10 day(s) Cipro Oral Tablet 500 MG (06/11/2023) Take 1 tablet twice a day for 7 day(s) Doxycycline Hyclate Oral Tablet 100 MG (06/08/2023) Take 1 tablet twice a day for 7 day(s) Ciprofloxacin HCl Oral Tablet 500 MG (11/10/2022) Take 1 tablet twice a day for 7 day(s) Cephalexin Oral Tablet 500 MG (10/23/2022) Take 1 tablet three times a day for 7 day(s) Ofloxacin Ophthalmic Solution 0.3 % (03/30/2023) diazePAM Oral Tablet 10 MG (02/19/2022) TAKE 1 TABLET 60 MIN BEFORE TEST Atorvastatin Calcium Oral Tablet 40 MG (11/18/2022) FLUoxetine HCl Oral Capsule 40 MG (01/26/2022) Enalapril Maleate Oral Tablet 10 MG (01/26/2022) TAKE 1 TABLET BY MOUTH EVERY DAY Erythromycin Ophthalmic Ointment 5 MG/GM (02/09/2022) APPLY 1 A SMALL AMOUNT LEFT EYE 4 TIMES A DAY Atorvastatin Calcium Oral Tablet 20 MG (01/26/2022) TAKE 1 TABLET BY MOUTH EVERY DAY Spironolactone Oral Tablet 25 MG (06/15/2023) TAKE 0.5 TABLETS BY MOUTH ONCE DAILY. Jardiance Oral Tablet 25 MG (06/14/2023) TAKE 1 TABLET BY MOUTH EVERY DAY WITH BREAKFAST Furosemide Oral Tablet 40 MG (11/18/2022) HumuLIN R U-500 KwikPen Subcutaneous Solution Pen-injector 500 UNIT/ML (06/14/2023) INJECT 40 UNITS SUBCUTANEOUSLY AT BREAKFAST, 100 UNITS AT LUNCH, 80 UNITS AT SUPPER. metFORMIN HCl Oral Tablet 1000 MG (11/23/2022) TAKE 1 TABLET BY MOUTH TWICE DAILY WITH MEALS. E11.3599 ALLERGIES: Band-Aid [place] Surg Dressing Other Bandaging Tape Other PAST MEDICAL HISTORY: Podiatry History remarkable for Foot Numbness, Fungal Nails, Leg or Foot Ulcers. The patient has a past medical history of Arthritis, Depression, DM-Medication Dependent, Poor Circulation. Neuropathy High Cholesterol SURGICAL HISTORY: Hand Tonsils HOSPITALIZATIONS: None Noted SOCIAL HISTORY: Smoking Status: Never smoker; Last Reviewed: 12/08/2023 Alcohol use: social drinker No drug use Social History Reviewed (01/16/2021 11:20:18 AM EST) FAMILY HISTORY: There is a family history of Denial of any knowledge of significant family history. Denial of any knowledge of significant family history Family History Reviewed (01/16/2021 11:20:19 AM EST) REVIEW OF SYSTEMS: Psychologic: Admits to No psych symptoms. Review of systems otherwise negative PHYSICAL EXAMINATION: Vital Signs: Weight 235 lbs; Height 5 ft 8 in; BMI 35.7 06/05/2024 8:57 AM (EST) Temperature 98.6 F; Pulse Rate 100 bpm; Blood Pressure 120 / 80 mm/Hg Vascular Exam: BL Foot DP / PT pulses +2/4. 2+ edema B/L LE CFT less than 3 seconds to digits LEFT, skin temp warm to warm from proximal to distal BL Foot Dermatologic Exam: LT medial lower leg wound healed LT anterior lower leg wound predebridement measures 0.6x0.5x0.1cm and post debridement measures 0.7x0.6x0.1cm with 70:30 granular fibrotic base, surrounding slough, no erythema, no purulence, no probe to bone, no malodor, MOD serous drainage. Into level of SUBCUTANEOUS TISSUE LT posterior lower leg cluster wound predebridement measures 9.8x7x0.1cm and post debridement measures 10x6.8x0.2cm with 80:20 granular fibrotic base post, surrounding slough, no erythema, no purulence, no probe to bone, no malodor, MOD serous drainage. Into level of SUBCUTANEOUS TISSUE RT medial lower leg cluster wound measures 0.6x0.7x0.1cm and post debridement measures 0.7x0.8x0.1cm with 80:20 granular fibrotic base, surrounding slough, no erythema, no purulence, no probe to bone, no malodor, MOD serous drainage. Into level of SUBCUTANEOUS TISSUE RT posterior inferior lower leg wound mesaures 3.7x3.4x0.1post debridement measures 3.9x3.5.x0.1cm with 70:30 granular fibrotic base, surrounding slough, no erythema, no purulence, no probe to bone, no malodor, MOD serous drainage. Into level of SUBCUTANEOUS TISSUE LEFT foot 2nd toe tuft hyperkeratotic tissue Nails 1-5 left are thickened, elongated and discolored with subungual debris. The nails are greater than .3mm in thickness. The discoloration is yellowish in color. Innerspaces 1-4 LT are clean dry and intact. Skin texture and turgor are decreased. absent or decreased hair growth bilateral. chronic lower leg red hyperpigmentation Neurologic Exam: Comments/Other Findings: Vibratory sensations decreased LT, Protective sensations absent LT tested with 5.07 monofilament, and light, sharp, and temperature sensations intact LT. Normal Babinski test noted bl foot after testing Orthopedic Exam: Additional Orthopedic Findings: RT foot toe amputations 1,2,3,4,5 LEFT 2nd hammertoe contracture semi- rigid DIAGNOSIS: Type II diabetes mellitus with neurological manifestations Lymphedema of both lower extremities PVD (peripheral vascular disease) History of amputation of right great toe Amputated toe of right foot Hammertoe of right foot Personal history of diabetic foot ulcer Callus Diabetic ulcer of toe of left foot associated with type 2 diabetes mellitus, limited to breakdown of skin Swelling of right lower extremity Surgical wound dehiscence Onychomycosis Skin ulcer of left great toe, limited to breakdown of skin Venous ulcer of left lower extremity without varicose veins Ulcer of left lower extremity, limited to breakdown of skin Venous ulcer of right lower extremity without varicose veins Ulcer of right lower extremity, limited to breakdown of skin PLAN AND TREATMENT: ASSESMENT & PLAN BL Foot and Ankle and Lower extremity Exam and Evaluation carried out with a treatment plan reviewed with the patient and findings discussed with patient including alternatives, benefits, complications and risks TESTS / IMAGING / X-RAY EXAM 12/22/21 PVR RESULTS: RIGHT SIDE Resting right ankle brachial index: 1.37Right toe brachial index: 0.70Normal ankle brachial index at rest in the right leg. Normal toe brachial index at rest in the right leg. Right ankle: Normal at rest. LEFT SIDE Resting left ankle brachial index: 1.33Left toe brachial index: 0.83Normal ankle brachial index at rest in the left leg. Normal toe brachial index at rest in the left leg. Left ankle: Normal at rest. PREVIOUS right foot XR: There was noted to be normal joint spaces unless noted. No fractures or dislocations noted. No soft tissue emphysema noted. No osteopenia or sclerosis noted. tibial and fibular sesamoid excised, there is small calcified piece of fibular sesamoid bone noted to plantar lateral 1st met. RT foot amp at MTPJ 1,2,3,4,5. no lytic lesions. no soft tissue gas noted. lower leg wound follow up B/L LE wounds LEFT posterior lower leg and RT posterior inferior lower leg wounds worse RT posterior distal lower leg, LT anterior lower leg, LT posterior lower extremity cluster, and RT medial lower extremity noted in exam were treated with sharp excisional debridement carried out of the wound with non selective sharp excisional debridement past the dermis into SUBCUTANEOUS level with use of curette and 15 scalpel blade. Devitalized tissue removed. We then flushed out the wound with wound wash sterile saline. Area numbed with lidocaine gel if sensate prior. see phys exam Discussed importance in offloading, proper nutrition including blood sugar control and getting enough protein and vitamins, infection prevention, proper wound care in wound healing. Also discussed detrimental impact of smoking on healing. Reviewed proper wound care with patient. To not soak wound but to clean appropriately. To watch for signs of infection both local and systemic. These were reviewed with the patient. If seen to contact office or go to ED. To continue wound care consisting of washing the wound with urgotul with silver, drawmax, 4x4 gauze, abd pad, kerlix, coban. apply compression arrow wraps. change daily Continue to wear farrow wraps which will help her with compression pad and protect area well ok to shower but pat dry after showering and do wound care she can wear normal tennis shoe we discussed that her wounds are from her high a1c. she has history of this when she loses control of blood sugar. instructed no local signs of infection Previously Rx Farrow wraps 30-40mmHg for compression Previously Rx PVR. has not had one since 2021. was normal at that time. Has new one scheduled for tomorrow PVR B/L LE reviewed with patient previously cont work with PCP for swelling control nutritional consultation was recommended. we went over proper diet and protein intake. 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 more mild disease to left lower leg from knee to calf.consider sending to vascular but should have adquate inflow to her lower leg PVR as below see back in 2 weeks at wound care center for B/L lower leg wounds Non-Invasive Vascular Laboratory [facility] Lower Extremity Arterial Physiology Study Bilateral/Complete Date of service/time: 04/05/2024 10:56:20 AM Name: MS. SHADE BRAMBILA Date of : 1960 Age: 63 years Gender: F Clinical Indication Leg/foot ulceration. TECHNIQUE -------- An arterial physiological examination was performed, including measurement of blood pressures using continuous wave Doppler and recording of plethysmographic with or without Doppler waveforms at the below-mentioned limb segments. FINDINGS -------- RIGHT SIDE AT REST Right Doppler Waveforms Dorsalis pedis: Multiphasic. Post tibial: Multiphasic. Right Pressures Brachial: 154 mmHg High thigh: greater than 255 mmHg Non-compressible arteries. Low thigh: greater than 255 mmHg Non-compressible arteries. Calf: greater than 255 mmHg Non-compressible arteries. Ankle dorsalis pedis: 146 mmHg MANJEET: 0.95 Ankle posterior tibial: 197 mmHg MANJEET: 1.28 Digit: Transmetatarsal amputation. Right PVR Waveforms High thigh: Normal. Low thigh: Normal. Calf: Normal. Ankle: Normal. Transmetatarsal: Normal. Digit: Transmetatarsal amputation. LEFT SIDE AT REST Left Doppler Waveforms Dorsalis pedis: Multiphasic. Post tibial: Multiphasic. Left Pressures Brachial: 153 mmHg High thigh: greater than 255 mmHg Non-compressible arteries. Low thigh: greater than 255 mmHg Non-compressible arteries. Calf: 218 mmHg Partially non-compressible arteries. Ankle dorsalis pedis: 138 mmHg MANJEET: 0.90 Ankle posterior tibial: 108 mmHg MANJEET: 0.70 Digit: 98 mmHg Left PVR Waveforms High thigh: Normal. Low thigh: Normal. Calf: Normal. Ankle: Mildly dampened. Transmetatarsal: Moderately dampened. Digit: Moderately dampened. Type II diabetes mellitus with neurological manifestations 250.60 E11.49 Diagnosis Notes Drag & Drop to change diagnosis order Lymphedema of both lower extremities 457.1 I89.0 Diagnosis Notes Drag & Drop to change diagnosis order PVD (peripheral vascular disease) 443.9 I73.9 Diagnosis Notes Drag & Drop to change diagnosis order History of amputation of right great toe V49.71 Z89.411 Diagnosis Notes Drag & Drop to change diagnosis order Amputated toe of right foot 895.0 S98.131A Diagnosis Notes Drag & Drop to change diagnosis order Hammertoe of right foot 735.4 M20.41 Diagnosis Notes Drag & Drop to change diagnosis order Personal history of diabetic foot ulcer V12.29 Z86.31 Diagnosis Notes Drag & Drop to change diagnosis order Callus 700 L84 Diagnosis Notes Drag & Drop to change diagnosis order Diabetic ulcer of toe of left foot associated with type 2 diabetes mellitus, limited to breakdown of skin 250.80 E11.621 Diagnosis Notes Drag & Drop to change diagnosis order Swelling of right lower extremity 729.81 M79.89 Diagnosis Notes Drag & Drop to change diagnosis order Surgical wound dehiscence 998.32 T81.31XA Diagnosis Notes Drag & Drop to change diagnosis order Onychomycosis 110.1 B35.1 Diagnosis Notes Drag & Drop to change diagnosis order Skin ulcer of left great toe, limited to breakdown of skin 707.15 L97.521 Diagnosis Notes Drag & Drop to change diagnosis order Venous ulcer of left lower extremity without varicose veins 459.81 I87.2 Diagnosis Notes Drag & Drop to change diagnosis order Ulcer of left lower extremity, limited to breakdown of skin 707.10 L97.921 Diagnosis Notes Drag & Drop to change diagnosis order Venous ulcer of right lower extremity without varicose veins 459.81 I87.2 Diagnosis Notes Drag & Drop to change diagnosis order Ulcer of right lower extremity, limited to breakdown of skin 707.10 L97.911 documented in this encounter [facility] 06-08-2024 Nurse Note Late Entry: Per Jessica Lopez will be contacting the patient with pricing options. Their insurance plan does not cover the supplies ordered under their benefits as they are considered OTC. Thank You for your patience! [facility] 06-08-2024 Nurse Note Late Entry: Per Jessica Lopez will be contacting the patient with pricing options. Their insurance plan does not cover the supplies ordered under their benefits as they are considered OTC. Thank You for your patience! Nursing Documentation Pertinent Medical History: DM2, HTN, venous insufficiency, & heart failure Wound Etiology according to patient: leg swelling & wounds February 2024 Pt had right great toe amputation June 18, 2023 Patient arrived via: Ambulatory with [facility]/Nursing Facility: N/A Consent captured for debridement per Dr. Alfredo Moore DPM and linda until March 2024 Consent captured for debridement per Dr. Berny Reyes DPM and linda until 2024 Consent captured for debridement per Dr. Hu Pickard DPM and linda until September 2024 Anticoagulant Therapy: ASA 81mg ACTIVE CARE PER PROVIDER: Giovanni Bolanos DPM, Hu Pickard DPM, & Alfredo Moore DPM Wounds 1-30 previously closed WOUND # 34 LOCATION: Right Distal Medial Lower Leg-CLOSED 03/13/24 (February 2024) CLOSED 03/13/24, closed 03/29/24 Application Dates: Grafts are complete 01/07/2023 Apligraf 01/15/2023 Apligraf 01/21/2023 Apligraf 01/27/2023 Apligraf 02/04/2023 Apligraf WOUND # 35 LOCATION: Right Posterior Lower Leg (February 2024) Closed 03/29/24, closed 04/12/24 WOUND ASSESSMENT: Refer to Provider's Wound Assessment Note VASCULAR ASSESSMENT BY PROVIDER: See provider wound assessment note CHF History: Yes as of February 2022, Dr. Sadler in Cardiology EDEMA: Right Foot: 1+ Right Ankle: none Right Calf: 3+ Left Foot: 2+ Left Ankle: none Left Calf: 3+ Other: N/A MEASUREMENTS: in cm Right Calf: 32.4 Right Ankle: 22.4 Left Calf: 32.7 Left Ankle: 21.7 Length: 43.0 WOUND PHOTOGRAPHY: Yes x 4 (last taken 06/07/24) DEBRIDEMENT PROCEDURE BY PROVIDER: Anesthetic Used: 2% lidogel applied by Amaris Farias RN Other procedure: n/a Specimen collected:n/a WOUND TREATMENT PER MD ORDER: Wounds cleansed by mechanical debridement to allow provider to visualize wound base WOUND # 31 LOCATION: Left Anterior Lower Leg (February 2024) L: 0.7 cm x W: 0.6 cm x D: 0.1 cm WOUND # 32 LOCATION: Left Posterior Lower Leg Cluster (February 2024) L: 10.0 cm x W: 7.2 cm x D: 0.2 cm WOUND # 33 LOCATION: Right Medial Lower Leg (February 2024) L: 0.7 cm x W: 0.8 cm x D: 0.1 cm WOUND # 34 LOCATION: Right Posterior Inferior Leg (May 2024) L: 3.9 cm x W: 3.5 cm x D: 0.1 cm Cleansed with: Vashe Applied to naya-wound skin: skin prep, vaseline Applied to wound bed: Urgotul Ag, drawtex. Covered and secured with: ABD, kerlix. Tape. Other: farrows COMPRESSION: Tubi-tobacco wetter size D followed by patient's own Jobst Farrow wraps SPECIAL NEEDS: Coordination of care N/A Emotional support N/A OR set-up N/A Yarn Examiner N/A Incontinence needs N/A DME company: ordered 03/01/24 Farrow wraps, Supplies ordered 06/07/2024 DISCHARGED in stable condition to: ambulatory with cane PLAN/ORDERS: Follow-up in the Wound Center with Dr Eric DPM in June 22, 2024 at 330p. If you notice any warmth or redness notify Dr. Reyes and Go to ER. Continue aggressive nutritional support to assist wound healing, focusing on increasing protein intake, keeping blood sugars stable/controlled Wound care supplies were ordered through [employer], please call monthly for additional supplies at the phone number provided: . Continue wearing Farrow wraps for compression May consider HBOT again in the future Be sure to check your weight daily and follow up with HF clinic as scheduled. Discuss with HF clinic nurse about weight parameters and when to take lasix. EDUCATION: Continuation of current wound care, follow up. The patient/family was instructed how to cleanse the wound(s). Visual demonstration on how to apply the dressing with teach back method. Signs & symptoms of infection were reviewed: Increased redness, swelling, pain, green/yellow drainage, fever and/or chills would all need to be evaluated by a Physician. Patient received typed home-going wound care instructions and has expressed intent to comply. OTHER EDUCATION: Education performed regarding lymphedema/edema: Elevation of extremity above the heart for 30 minutes three times daily and as needed Exercise such as writing the ABC's with your toes in the air, walking and/or calf pumps Wearing compression as ordered by provider Diet controlling of sodium as instructed by provider Use of medication to help control edema. UNIVERSAL PROTOCOL / SAFETY CHECKLIST Procedure to be Performed sharp debridement of lower leg wounds Sign In: 1111 A Moment of CARE was completed. Personnel directly involved with the procedure wore the appropriate PPE (Personal Protective Equipment). Patient/Surrogate Stated/Verified: PATIENT VERIFIED(optional for EMERGENT procedures): Patient name, Date of , Relevant allergies, and The intended procedure Time Out Communication: 1112 Intended patient and procedure match the source documents. Consent documented and matches the intended procedure. No relevant labs, photos, and/or imaging studies were applicable for review. Sign Out: 1125 SIGN OUT (optional for EMERGENT procedures): All instruments, equipment, possible retained foreign bodies accounted for. Current HBOT Status: Active or Complete - see screening below WOUND CENTER HYPERBARIC OXYGEN THERAPY SCREENING 1. Is the patient diabetic? (If No, skip to question 5) Yes 2. Does the patient have a lower extremity wound? Yes 3. Is there exposed/involved tendon or bone? 4. Has the wound been present for 30 days? Yes If Yes to ALL questions above, consult the Hyperbaric Center 5. Has the patient been diagnosed with osteomyelitis? No 6. Has the patient had a previous skin graft or flap at the wound? No 7. Has the patient had or been offered vascular intervention/evaluation? No 8. Does the patient have a wound at an amputation site? Yes 9. Has the patient had radiation therapy at the site of the problem? No If Yes to ANY of questions 5-9, consult the Hyperbaric Center Amena Leonard RN/ documented in this encounter [facility] 06-07-2024 Instructions Amena Leonard RN - 06/07/2024 10:52 AM EDT WOUND CARE INSTRUCTIONS- Shade Brambila Wound location: Bilateral Lower Leg Wounds - Gather supplies - Place down a clean work surface such as new paper towel or newly cleaned towel. - Clean all metal instruments with rubbing alcohol before and after each use. - Plastic garbage bag for old dressing - Wash your hands with soap and water before and after wound care. Wash your foot with dial soap and water. Dry well between the toes. Bilateral Lower Extremity Wound Care: Wash wounds with: Vashe Apply to wound bed: Urgotul with silver them Drawtex over top of urgotul. Cover wounds with: 4x4 Gauze, ABD, Lightly wrap with conform, tape to secure.. Other: change dressings daily moisturize lower legs with vaseline daily - Apply Farrow wraps every morning: Apply compression first thing in the morning. OK to remove compression at bedtime. Compression must be removed if: it becomes wet or soiled If you have numbness or tingling in your foot or toes If you have increased pain If toes become cold or discolored - Avoid sitting with legs in a dependent position or standing for long periods of time. - Attempt to lay flat and elevate your legs above the level of your heart 2-3 times daily, for 30 minutes at a time. - Be sure to continue walking and/or calf pumps and exercises to mimic writing the alphabet with your foot, as instructed Foot care Many people with diabetes lose the feeling in their feet (neuropathy). Therefore, they might not know they have an injury that can lead to serious problems, such as foot removal (amputation). By taking care of your feet, most serious problems can be prevented. If you have problems checking your own feet, have a family member or friend help you. Easy steps to protect your feet: Check your feet every day for: dry or cracked skin, cuts, open sores, blisters, redness, swelling, corns, calluses, or toenail problems. Use a mirror if necessary. Report any problems to your doctor. Keep your feet clean and dry, especially between the toes. If your feet are dry or cracked use a moisturizing lotion at least daily but never between the toes. See your judicial clerk every three months for foot and nail care. Don't go barefoot. Wear shoes or slippers at all times. Wear comfortable shoes that fit well. Check inside your shoes for foreign objects or rough spots before putting on shoes. Always wear socks. Avoid using anything hot, such as heating pads, hot water bottles, hot tubs, or bath water. Check the temperature of bath water with your elbow not your foot. Take your shoes and socks off at every office visit to remind your doctor to check your feet. Also, never tape a dressing directly to the skin on your legs or feet. Instead, use a self-adherent bandage to avoid injuring the skin on your lower extremities If calluses form they can cause wound ulcers to appear under the callus, must be seen by [employer] every three months to prevent. Maintain controlled blood sugar, if blood sugar is consistently above 200 this can delay wound healing and aggravate neuropathy. - Control your sodium intake as instructed by provider To give your wound the best chance to heal: - Eat three balanced meals daily focusing on the protein - Control your blood sugar. Keep blood sugar less than 200 - Complete your wound care instructions as ordered - Vitamin C 500 mg twice daily - Multiple Vitamin Daily - Drink a protein shake daily - Premiere Clear or Glucerna for Diabetic patients, Nepro for renal patients and premiere for non-renal and non-diabetic patients Report any of the following signs and symptoms of infection to the Wound Center at [phone] or go to the Emergency Department: Fever or chills Increased drainage Green or yellow drainage Foul odor Increased pain Hardness around the wound Redness, warmth or swelling of the surrounding tissue Color change to the wound Evenings / Weekends / Holidays If you call the wound center at the phone number provided above, please leave a detailed message that includes your full name, birthday, and phone number. We are seeing patients during the day, so we will return your call within a 24-48 hr period in the order your call was received. There is not an on-call provider assigned to the wound center. If you have an emergency that needs to be addressed, please go to an Urgent Care or Emergency Room. Thank you for your cooperation and understanding. Due to the cold and flu season approaching us, if you have any symptoms such as a cough, fever, chills, nausea, vomiting, diarrhea, and/or body aches, please call and reschedule your appointment in the Wound Center. PLAN/ORDERS: Follow-up in the Wound Center with Dr Eric DPM in June 22, 2024 at 330p. If you notice any warmth or redness notify Dr. Reyes and Go to ER. Continue aggressive nutritional support to assist wound healing, focusing on increasing protein intake, keeping blood sugars stable/controlled Wound care supplies were ordered through [employer], please call monthly for additional supplies at the phone number provided: . Continue wearing Farrow wraps for compression May consider HBOT again in the future Be sure to check your weight daily and follow up with HF clinic as scheduled. Discuss with HF clinic nurse about weight parameters and when to take lasix. Dr. Berny Reyes DPM/martha/ documented in this encounter [facility] 06-07-2024 Nurse Note Nursing Documentation Pertinent Medical History: DM2, HTN, venous insufficiency, & heart failure Wound Etiology according to patient: leg swelling & wounds February 2024 Pt had right great toe amputation June 18, 2023 Patient arrived via: Ambulatory with [employer]/Nursing Facility: N/A Consent captured for debridement per Dr. Alfredo Moore DPM and linda until March 2024 Consent captured for debridement per Dr. Berny Reyes DPM and linda until 2024 Consent captured for debridement per Dr. Hu Pickard, PABLITO and linda until September 2024 Anticoagulant Therapy: ASA 81mg ACTIVE CARE PER PROVIDER: Giovanni Bolanos DPM, Hu HAM, & Alfredo Moore DPM Wounds 1-30 previously closed WOUND # 34 LOCATION: Right Distal Medial Lower Leg-CLOSED 03/13/24 (February 2024) CLOSED 03/13/24, closed 03/29/24 Application Dates: Grafts are complete 01/07/2023 Apligraf 01/15/2023 Apligraf 01/21/2023 Apligraf 01/27/2023 Apligraf 02/04/2023 Apligraf WOUND # 35 LOCATION: Right Posterior Lower Leg (February 2024) Closed 03/29/24, closed 04/12/24 WOUND ASSESSMENT: Refer to Provider's Wound Assessment Note VASCULAR ASSESSMENT BY PROVIDER: See provider wound assessment note CHF History: Yes as of February 2022, Dr. Sadler in Cardiology EDEMA: Right Foot: 1+ Right Ankle: none Right Calf: 3+ Left Foot: 2+ Left Ankle: none Left Calf: 3+ Other: N/A MEASUREMENTS: in cm Right Calf: 32.4 Right Ankle: 22.4 Left Calf: 32.7 Left Ankle: 21.7 Length: 43.0 WOUND PHOTOGRAPHY: Yes x 4 (last taken 06/07/24) DEBRIDEMENT PROCEDURE BY PROVIDER: Anesthetic Used: 2% lidogel applied by Amaris Farias RN Other procedure: n/a Specimen collected:n/a WOUND TREATMENT PER MD ORDER: Wounds cleansed by mechanical debridement to allow provider to visualize wound base WOUND # 31 LOCATION: Left Anterior Lower Leg (February 2024) L: 0.7 cm x W: 0.6 cm x D: 0.1 cm WOUND # 32 LOCATION: Left Posterior Lower Leg Cluster (February 2024) L: 10.0 cm x W: 7.2 cm x D: 0.2 cm WOUND # 33 LOCATION: Right Medial Lower Leg (February 2024) L: 0.7 cm x W: 0.8 cm x D: 0.1 cm WOUND # 34 LOCATION: Right Posterior Inferior Leg (May 2024) L: 3.9 cm x W: 3.5 cm x D: 0.1 cm Cleansed with: Vashe Applied to naya-wound skin: skin prep, vaseline Applied to wound bed: Urgotul Ag, drawtex. Covered and secured with: ABD, kerlix. Tape. Other: farrows COMPRESSION: Tubi-tobacco wetter size D followed by patient's own Jobst Farrow wraps SPECIAL NEEDS: Coordination of care N/A Emotional support N/A OR set-up N/A Yarn Examiner N/A Incontinence needs N/A DME company: ordered 03/01/24 Farrow wraps, Supplies ordered 06/07/2024 DISCHARGED in stable condition to: ambulatory with cane PLAN/ORDERS: Follow-up in the Wound Center with Dr Eric DPM in June 22, 2024 at 330p. If you notice any warmth or redness notify Dr. Reyes and Go to ER. Continue aggressive nutritional support to assist wound healing, focusing on increasing protein intake, keeping blood sugars stable/controlled Wound care supplies were ordered through [employer], please call monthly for additional supplies at the phone number provided: . Continue wearing Farrow wraps for compression May consider HBOT again in the future Be sure to check your weight daily and follow up with HF clinic as scheduled. Discuss with HF clinic nurse about weight parameters and when to take lasix. EDUCATION: Continuation of current wound care, follow up. The patient/family was instructed how to cleanse the wound(s). Visual demonstration on how to apply the dressing with teach back method. Signs & symptoms of infection were reviewed: Increased redness, swelling, pain, green/yellow drainage, fever and/or chills would all need to be evaluated by a Physician. Patient received typed home-going wound care instructions and has expressed intent to comply. OTHER EDUCATION: Education performed regarding lymphedema/edema: Elevation of extremity above the heart for 30 minutes three times daily and as needed Exercise such as writing the ABC's with your toes in the air, walking and/or calf pumps Wearing compression as ordered by provider Diet controlling of sodium as instructed by provider Use of medication to help control edema. UNIVERSAL PROTOCOL / SAFETY CHECKLIST Procedure to be Performed sharp debridement of lower leg wounds Sign In: 1111 A Moment of CARE was completed. Personnel directly involved with the procedure wore the appropriate PPE (Personal Protective Equipment). Patient/Surrogate Stated/Verified: PATIENT VERIFIED(optional for EMERGENT procedures): Patient name, Date of , Relevant allergies, and The intended procedure Time Out Communication: 1112 Intended patient and procedure match the source documents. Consent documented and matches the intended procedure. No relevant labs, photos, and/or imaging studies were applicable for review. Sign Out: 1125 SIGN OUT (optional for EMERGENT procedures): All instruments, equipment, possible retained foreign bodies accounted for. Current HBOT Status: Active or Complete - see screening below WOUND CENTER HYPERBARIC OXYGEN THERAPY SCREENING 1. Is the patient diabetic? (If No, skip to question 5) Yes 2. Does the patient have a lower extremity wound? Yes 3. Is there exposed/involved tendon or bone? 4. Has the wound been present for 30 days? Yes If Yes to ALL questions above, consult the Hyperbaric Center 5. Has the patient been diagnosed with osteomyelitis? No 6. Has the patient had a previous skin graft or flap at the wound? No 7. Has the patient had or been offered vascular intervention/evaluation? No 8. Does the patient have a wound at an amputation site? Yes 9. Has the patient had radiation therapy at the site of the problem? No If Yes to ANY of questions 5-9, consult the Hyperbaric Center Amena Leonard RN/lt [facility] 05-30-2024 History of Presen t illness Narrative Images from the original note were not included. [facility] AT [address] [place] [address] Dept: [phone] Dept PHYSICAL THERAPY TREATMENT [facility] Patient Name: Shade Brambila : 1960 Date of Service: 05/30/2024 Referring Provider: Hamlet Garay MD Visit #: 2 Diagnosis: OAB (overactive bladder) Mechanism of injury: Pt reports she was doing Hyperbarics for her leg wound 11/2022 to 03/2023, then pt states her bladder issues started in 05/2023. Pt reports it is mostly at night with increased nocturia 3 x/ night and urgency UI. Pt's MD did recommend she reduce diet soda intake, elevated legs 2-3 hours before bed and stop drinking 2 hours before bed. Pt reports nocturia reduced to 1 x/ night. Patient Preferences: Vanessa Precautions/Red Flags: Yes S/P operations on 08/19/[address] Alfredo Ureña Robotic assisted total laparoscopic hysterectomy Bilateral salpingo-oophorectomy [place] lymph node mapping Cystoscopy Path: FIGO grade 1 EAC of uterus She did not need adjuvant therapy. Patient had hyperbaric treatments for wound on LLE. Afterwards she noticed urgency and urge incontinence. She denies prolapse symptoms for at least months. She has not tried a pessary. She denies PAO with coughing, laughing, and sneezing. She reports UUI, mainly at night She does have symptoms of urinary urgency and frequency. She does feel that she empties her bladder completely. She has not tried overactive bladder medications. Avoid Estrogen d/t Uterine CA Subjective Pt brought in her HEP from other PT program Compliance with HEP: Yes Objective Pelvic Floor Assessment Special tests Skin observation: Vulva/labia majora moderately red and dry from pad use. Pt with vaginal atrophy and dehydration Vaginal Wall Weakness Anterior wall: mild Posterior wall: mild Observations: With supine bulge activity Pelvic Floor Muscle testing Modified Laycock: Layer 1: /5 Layer 2: 5 Layer 3: 09/10 Endurance: < 1 second Contraction quality: poof-pt challenged with recruiting PF mm's and tends to use accessory mm's and coordinated breathing is difficult Relaxation quality: fair Voluntary excursion quality: poor Resting position: WNl Palpation Myofascial mobility: moderate age related and hormonal related changed. Soft tissue: non tender SOSA Tenderness 0-no tenderness 1-complaint of pain 2-Pain w/wincing 3-Pain w/ withdrawal 4- Unable to palpate Guarding 0-No guarding 1-Mild 2- Moderate 3-Severe Spasm 0-No spasm 1-Mild 2-Moderate 3-Severe Mobility 0-No change 1-Mild 2-Moderate 3-Severe Muscles/Soft tissue Left Right Left Right Left Right Left Right Bulbocavernosus 0 0 0 0 0 0 2 2 Coccygeus 0 0 0 0 0 0 0 0 Iliococcygeus 0 0 0 0 0 0 2 2 Ischiocavernosus 0 0 0 0 0 0 0 0 Levator Ani 0 0 0 0 0 0 2 2 Obturator Internus 0 0 0 0 0 0 3 3 Pelvic Clock 12-3 0 X X X X X X X Pelvic Clock 3-6 0 X X X X X X X Pelvic Clock 6-9 X 0 X X X X X X Pelvic Clock 9-12 X 0 X X X X X X Perineal body 0 0 X X X X 2 2 Pubococcygeus 0 0 0 0 0 0 0 0 Puborectalis 0 0 0 0 0 0 1 1 Transverse Perineal 0 0 0 0 0 0 0 0 Transverse Perineal- Deep 0 0 0 0 0 0 2 2 Bony Structures: 0 0 X X X X X X Treatment Therapeutic Activity # of Activities: 4 Therapeutic Activity 1: HEP 05/30/24: pt brought in home prgram from other PT program; it includes sink exercises, LAQ/SAQ/HS stretch, seated ex's. Scanned into pt's chart.( add: stretches: hip add., hip Rot. , hip flex next session) Activity 1 Comment: stretches: hip add-standing at counter, ., , hip flex -in chair, lumbar extension -against counterDiscussed rational and importance of HEP for program carryover and maximal benefit of rehab. Patient demonstrated exercises to ensure proper technique and clinician provided verbal and written information. Exercises inputted into OM Latam. Therapeutic Activity 2: Internal PF mm assessment-05/30/24 completed. See objective section of notes Activity 2 Comment: Pelvic Floor Assessment: Discussed rational, informed consent*, completion & findings explained. (*Consent for pelvic floor assessment, muscle testing and treatment: Patient received education regarding pelvic floor physical therapy assessment/treatment with use of 3D pelvic floor model for education on relevant pelvic floor anatomy. Assessment and treatment may include an external or internal (visual and/or digital/tactile) approach for assessment/treatment of perineal tissues, pelvic floor and pelvic girdle muscles. Patient provided freely given, reversible, informed, enthusiastic and specific consent for internal pelvic floor muscle assessment and treatment today. Patient understands that they have control of the assessment and treatment, having the opportunity to stop treatment at any time. Patient also provided written consent at initial evaluation. ) Therapeutic Activity 3: Bladder re-training Activity 3 Comment: Discussed bladder irritants/diet and increasing water intake Home Exercise Program: Progressed home exercise program Assessment Skilled physical therapy interventions utilized to improve patient s impairments and work towards established goals. Patient response to treatment: Added Modified stretches to pt's HEP. Pt challenged d/t other musculo-skeletal and Orthopedic restrictions. Internal PF mm assessment completed. Pt demonstrated: moderate to severe PF mm weakness, decreased strength endurance and coordination. Pt challenged with recruiting PF mm without using accessory mm's and coordinated breathing Patient will benefit from continued physical therapy to address strength and flexibility deficits to reduce UI and urgency The rationale for today s treatment was explained to the patient. Verbal cues were provided for correct form with all exercises. Advised patient to continue with Home Exercise Program (HEP). Goals General/Ortho Patient will be independent with HEP. (Progressing) Start: 05/23/24 Expected End: 08/22/24 Patient will increase strength in B LE to >4/5 to 5/5 and core to 3/5 to be able to improve PF function and general mobility to be able to reach bathroom in appropriate time without UI. (Not Addressed) Start: 05/23/24 Expected End: 08/22/24 Pelvic Health Pt will reduce summary score on gender appropriate NIH-CPSI to 4/45 to improve patient's perceived quality of life (Not Progressing) Start: 05/23/24 Expected End: 08/22/24 Pt will reduce use of pads to 0 pads per night (Not Progressing) Start: 05/23/24 Expected End: 08/22/24 Pt will reduce urinary incontinence to complete elimination (Not Progressing) Start: 05/23/24 Expected End: 08/22/24 Plan Plan for next session: Progress Kegel as tolerated, further education for optimal pelvic health. Time Entry Total Treatment Time Start Time: 1459 Stop Time: 1546 Time Calculation (min): 47 min PT Therapeutic Procedures Time Entry Therapeutic Activity Time Entry: 47 Hu Hawley PT documented in this encounter [facility] 05-25-2024 Note [facility] 05-25-2024 History of Presen t illness Narrative Date of Visit: 05/24/2024 Problem list reviewed. CHIEF COMPLAINT: check B/L lower leg wounds DM II A1c 8.3 (10/07/23) DLS 02/08/24 HISTORY OF PRESENT ILLNESS: Patient last seen 05/10/24. wounds are smaller today and less drainage. Here today for B/L lower leg wound check. she is wearing her farrow wraps today Denies N/V/F/C/D/SOB/CP/LP. She relates she can't feel feet well due to neuropathy. She has numbness and toe amputations. Referred by Dr. Dasilva. 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 Right 2nd toe amputation and hallux I&D 10/28/22. Hx s/p RT toe amp 3,4,5 (DOS 10/14/23) DME DM inserts 08/24/23 rx circade wraps 08/14/22 CURRENT MEDICATIONS: Percocet Oral Tablet 5-325 MG (10/27/2023) Take 1 tablet every 6 hours as needed for 4 day(s) Clindamycin HCl Oral Capsule 300 MG (11/26/2022) TAKE 1 CAPSULE BY MOUTH EVERY 8 HOURS FOR 7 DAYS. oxyCODONE-Acetaminophen Oral Tablet 5-325 MG (10/28/2022) Ketorolac Tromethamine Ophthalmic Solution 0.5 % (04/26/2023) Accu-Chek Jose Plus In Vitro Strip (09/23/2022) Sulfamethoxazole-Trimethoprim Oral Tablet 800-160 MG (06/24/2023) Atorvastatin Calcium Oral Tablet 80 MG (06/13/2023) miSOPROStol Oral Tablet 200 MCG (06/15/2023) TAKE 2 TABLETS BY MOUTH THE DAY PRIOR TO PROCEDURE AT BEDTIME WITH FOOD Fluticasone Propionate Nasal Suspension 50 MCG/ACT (12/15/2022) USE 2 SPRAYS IN EACH NOSTRIL DAILY X1 WEEK,THEN 1 SPRAY IN EACH NOSTRIL DAILY THEREAFTER NEEDED Nitrofurantoin Monohyd Macro Oral Capsule 100 MG (02/08/2023) Cephalexin Oral Capsule 500 MG (09/26/2022) Doxycycline Hyclate Oral Capsule 100 MG (11/10/2022) Fluconazole Oral Tablet 200 MG (03/20/2024) TAKE 1 TABLET EVERY DAY FOR 21 DAYS Bactrim DS Oral Tablet 800-160 MG (06/24/2023) Take 1 tablet twice a day for 10 day(s) Cipro Oral Tablet 500 MG (06/11/2023) Take 1 tablet twice a day for 7 day(s) Doxycycline Hyclate Oral Tablet 100 MG (06/08/2023) Take 1 tablet twice a day for 7 day(s) Ciprofloxacin HCl Oral Tablet 500 MG (11/10/2022) Take 1 tablet twice a day for 7 day(s) Cephalexin Oral Tablet 500 MG (10/23/2022) Take 1 tablet three times a day for 7 day(s) Ofloxacin Ophthalmic Solution 0.3 % (03/30/2023) diazePAM Oral Tablet 10 MG (02/19/2022) TAKE 1 TABLET 60 MIN BEFORE TEST Atorvastatin Calcium Oral Tablet 40 MG (11/18/2022) FLUoxetine HCl Oral Capsule 40 MG (01/26/2022) Enalapril Maleate Oral Tablet 10 MG (01/26/2022) TAKE 1 TABLET BY MOUTH EVERY DAY Erythromycin Ophthalmic Ointment 5 MG/GM (02/09/2022) APPLY 1 A SMALL AMOUNT LEFT EYE 4 TIMES A DAY Atorvastatin Calcium Oral Tablet 20 MG (01/26/2022) TAKE 1 TABLET BY MOUTH EVERY DAY Spironolactone Oral Tablet 25 MG (06/15/2023) TAKE 0.5 TABLETS BY MOUTH ONCE DAILY. Jardiance Oral Tablet 25 MG (06/14/2023) TAKE 1 TABLET BY MOUTH EVERY DAY WITH BREAKFAST Furosemide Oral Tablet 40 MG (11/18/2022) HumuLIN R U-500 KwikPen Subcutaneous Solution Pen-injector 500 UNIT/ML (06/14/2023) INJECT 40 UNITS SUBCUTANEOUSLY AT BREAKFAST, 100 UNITS AT LUNCH, 80 UNITS AT SUPPER. metFORMIN HCl Oral Tablet 1000 MG (11/23/2022) TAKE 1 TABLET BY MOUTH TWICE DAILY WITH MEALS. E11.3599 ALLERGIES: Band-Aid [place] Surg Dressing Other Bandaging Tape Other PAST MEDICAL HISTORY: Podiatry History remarkable for Foot Numbness, Fungal Nails, Leg or Foot Ulcers. The patient has a past medical history of Arthritis, Depression, DM-Medication Dependent, Poor Circulation. Neuropathy High Cholesterol SURGICAL HISTORY: Hand Tonsils HOSPITALIZATIONS: None Noted SOCIAL HISTORY: Smoking Status: Never smoker; Last Reviewed: 12/08/2023 Alcohol use: social drinker No drug use Social History Reviewed (01/16/2021 11:20:18 AM EST) FAMILY HISTORY: There is a family history of Denial of any knowledge of significant family history. Denial of any knowledge of significant family history Family History Reviewed (01/16/2021 11:20:19 AM EST) REVIEW OF SYSTEMS: Psychologic: Admits to No psych symptoms. Review of systems otherwise negative PHYSICAL EXAMINATION: Vital Signs: Weight 235 lbs; Height 5 ft 8 in; BMI 35.7 05/23/2024 11:43 AM (EST) Temperature 98.6 F; Pulse Rate 100 bpm; Blood Pressure 120 / 80 mm/Hg Vascular Exam: BL Foot DP / PT pulses +2/4. 2+ edema B/L LE CFT less than 3 seconds to digits LEFT, skin temp warm to warm from proximal to distal BL Foot Dermatologic Exam: LT medial lower leg wound healed LT anterior lower leg wound predebridement measures 0.6x0.3x0.1cm and post debridement measures 0.7x0.4x0.1cm with 60:40 granular fibrotic base, surrounding slough, no erythema, no purulence, no probe to bone, no malodor, MOD serous drainage. Into level of SUBCUTANEOUS TISSUE LT posterior lower leg cluster wound predebridement measures 1.5x1.7x0.1cm and post debridement measures 1.6x1.9x0.1cm with 70:30 granular fibrotic base post, surrounding slough, no erythema, no purulence, no probe to bone, no malodor, MOD serous drainage. Into level of SUBCUTANEOUS TISSUE RT medial lower leg cluster wound measures 0.7x0.7x0.1cm and post debridement measures 0.8x0.7x0.1cm with 80:20 granular fibrotic base, surrounding slough, no erythema, no purulence, no probe to bone, no malodor, MOD serous drainage. Into level of SUBCUTANEOUS TISSUE NEW RT posterior inferior lower leg wound post debridement measures 1.2x1x0.1cm with 90:10 granular fibrotic base, surrounding slough, no erythema, no purulence, no probe to bone, no malodor, MOD serous drainage. Into level of SUBCUTANEOUS TISSUE LEFT foot 2nd toe tuft hyperkeratotic tissue Nails 1-5 left are thickened, elongated and discolored with subungual debris. The nails are greater than .3mm in thickness. The discoloration is yellowish in color. Innerspaces 1-4 LT are clean dry and intact. Skin texture and turgor are decreased. absent or decreased hair growth bilateral. chronic lower leg red hyperpigmentation Neurologic Exam: Comments/Other Findings: Vibratory sensations decreased LT, Protective sensations absent LT tested with 5.07 monofilament, and light, sharp, and temperature sensations intact LT. Normal Babinski test noted bl foot after testing Orthopedic Exam: Additional Orthopedic Findings: RT foot toe amputations 1,2,3,4,5 LEFT 2nd hammertoe contracture semi- rigid DIAGNOSIS: Type II diabetes mellitus with neurological manifestations Lymphedema of both lower extremities PVD (peripheral vascular disease) History of amputation of right great toe Amputated toe of right foot Hammertoe of right foot Personal history of diabetic foot ulcer Callus Diabetic ulcer of toe of left foot associated with type 2 diabetes mellitus, limited to breakdown of skin Swelling of right lower extremity Surgical wound dehiscence Onychomycosis Skin ulcer of left great toe, limited to breakdown of skin Venous ulcer of left lower extremity without varicose veins Ulcer of left lower extremity, limited to breakdown of skin Venous ulcer of right lower extremity without varicose veins Ulcer of right lower extremity, limited to breakdown of skin PLAN AND TREATMENT: ASSESMENT & PLAN BL Foot and Ankle and Lower extremity Exam and Evaluation carried out with a treatment plan reviewed with the patient and findings discussed with patient including alternatives, benefits, complications and risks TESTS / IMAGING / X-RAY EXAM 12/22/21 PVR RESULTS: RIGHT SIDE Resting right ankle brachial index: 1.37Right toe brachial index: 0.70Normal ankle brachial index at rest in the right leg. Normal toe brachial index at rest in the right leg. Right ankle: Normal at rest. LEFT SIDE Resting left ankle brachial index: 1.33Left toe brachial index: 0.83Normal ankle brachial index at rest in the left leg. Normal toe brachial index at rest in the left leg. Left ankle: Normal at rest. PREVIOUS right foot XR: There was noted to be normal joint spaces unless noted. No fractures or dislocations noted. No soft tissue emphysema noted. No osteopenia or sclerosis noted. tibial and fibular sesamoid excised, there is small calcified piece of fibular sesamoid bone noted to plantar lateral 1st met. RT foot amp at MTPJ 1,2,3,4,5. no lytic lesions. no soft tissue gas noted. NEW RT posterior distal lower leg wound follow up B/L LE wounds LT anterior lower leg smaller and RT medial lower leg and LT posterior lower leg stable NEW RT posterior distal lower leg, LT anterior lower leg, LT posterior lower extremity cluster, and RT medial lower extremity noted in exam were treated with sharp excisional debridement carried out of the wound with non selective sharp excisional debridement past the dermis into SUBCUTANEOUS level with use of curette and 15 scalpel blade. Devitalized tissue removed. We then flushed out the wound with wound wash sterile saline. Area numbed with lidocaine gel if sensate prior. see phys exam Discussed importance in offloading, proper nutrition including blood sugar control and getting enough protein and vitamins, infection prevention, proper wound care in wound healing. Also discussed detrimental impact of smoking on healing. Reviewed proper wound care with patient. To not soak wound but to clean appropriately. To watch for signs of infection both local and systemic. These were reviewed with the patient. If seen to contact office or go to ED. To continue wound care consisting of washing the wound with medihoney and apply adaptic, alginate, excel SAP. circade or farrow wraps. change every day instructed needs to wear new farrow wraps which will help her with compression pad and protect area well ok to shower but pat dry after showering and do wound care she can wear normal tennis shoe we discussed that her wounds are from her high a1c. she has history of this when she loses control of blood sugar. instructed no local signs of infection Previously Rx Farrow wraps 30-40mmHg for compression Previously Rx PVR. has not had one since 2021. was normal at that time. Has new one scheduled for tomorrow PVR B/L LE reviewed with patient previously cont work with PCP for swelling control nutritional consultation was recommended. we went over proper diet and protein intake. 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 more mild disease to left lower leg from knee to calf.consider sending to vascular but should have adquate inflow to her lower leg PVR as below see back in 2 weeks at wound care center for B/L lower leg wounds Non-Invasive Vascular Laboratory [facility] Lower Extremity Arterial Physiology Study Bilateral/Complete Date of service/time: 04/05/2024 10:56:20 AM Name: MS. SHADE BRAMBILA Date of : 1960 Age: 63 years Gender: F Clinical Indication Leg/foot ulceration. TECHNIQUE -------- An arterial physiological examination was performed, including measurement of blood pressures using continuous wave Doppler and recording of plethysmographic with or without Doppler waveforms at the below-mentioned limb segments. FINDINGS -------- RIGHT SIDE AT REST Right Doppler Waveforms Dorsalis pedis: Multiphasic. Post tibial: Multiphasic. Right Pressures Brachial: 154 mmHg High thigh: greater than 255 mmHg Non-compressible arteries. Low thigh: greater than 255 mmHg Non-compressible arteries. Calf: greater than 255 mmHg Non-compressible arteries. Ankle dorsalis pedis: 146 mmHg MANJEET: 0.95 Ankle posterior tibial: 197 mmHg MANJEET: 1.28 Digit: Transmetatarsal amputation. Right PVR Waveforms High thigh: Normal. Low thigh: Normal. Calf: Normal. Ankle: Normal. Transmetatarsal: Normal. Digit: Transmetatarsal amputation. LEFT SIDE AT REST Left Doppler Waveforms Dorsalis pedis: Multiphasic. Post tibial: Multiphasic. Left Pressures Brachial: 153 mmHg High thigh: greater than 255 mmHg Non-compressible arteries. Low thigh: greater than 255 mmHg Non-compressible arteries. Calf: 218 mmHg Partially non-compressible arteries. Ankle dorsalis pedis: 138 mmHg MANJEET: 0.90 Ankle posterior tibial: 108 mmHg MANJEET: 0.70 Digit: 98 mmHg Left PVR Waveforms High thigh: Normal. Low thigh: Normal. Calf: Normal. Ankle: Mildly dampened. Transmetatarsal: Moderately dampened. Digit: Moderately dampened. Type II diabetes mellitus with neurological manifestations 250.60 E11.49 Diagnosis Notes Drag & Drop to change diagnosis order Lymphedema of both lower extremities 457.1 I89.0 Diagnosis Notes Drag & Drop to change diagnosis order PVD (peripheral vascular disease) 443.9 I73.9 Diagnosis Notes Drag & Drop to change diagnosis order History of amputation of right great toe V49.71 Z89.411 Diagnosis Notes Drag & Drop to change diagnosis order Amputated toe of right foot 895.0 S98.131A Diagnosis Notes Drag & Drop to change diagnosis order Hammertoe of right foot 735.4 M20.41 Diagnosis Notes Drag & Drop to change diagnosis order Personal history of diabetic foot ulcer V12.29 Z86.31 Diagnosis Notes Drag & Drop to change diagnosis order Callus 700 L84 Diagnosis Notes Drag & Drop to change diagnosis order Diabetic ulcer of toe of left foot associated with type 2 diabetes mellitus, limited to breakdown of skin 250.80 E11.621 Diagnosis Notes Drag & Drop to change diagnosis order Swelling of right lower extremity 729.81 M79.89 Diagnosis Notes Drag & Drop to change diagnosis order Surgical wound dehiscence 998.32 T81.31XA Diagnosis Notes Drag & Drop to change diagnosis order Onychomycosis 110.1 B35.1 Diagnosis Notes Drag & Drop to change diagnosis order Skin ulcer of left great toe, limited to breakdown of skin 707.15 L97.521 Diagnosis Notes Drag & Drop to change diagnosis order Venous ulcer of left lower extremity without varicose veins 459.81 I87.2 Diagnosis Notes Drag & Drop to change diagnosis order Ulcer of left lower extremity, limited to breakdown of skin 707.10 L97.921 Diagnosis Notes Drag & Drop to change diagnosis order Venous ulcer of right lower extremity without varicose veins 459.81 I87.2 Diagnosis Notes Drag & Drop to change diagnosis order Ulcer of right lower extremity, limited to breakdown of skin 707.10 L97.911 documented in this encounter [facility] 05-25-2024 Note HNO ID: [id number] Author: ALFREDO UREÑA MD Service: ? Author Type: Physician Type: Progress Notes Filed: 05/25/2024 10:46 Note Text: Gynecologic Oncology Note [facility] Chief complaint: Surveillance (3 months) HPI: This is a 63 year old with h/o stage IA2 FIGO grade 1 EAC of the uterus s/p RA-TLH/BSO, PLND here for surveillance. Patient is without concern today. She has been doing PT on Tuesdays and , has been going well. She has been increasing her water intake, which has improved her bowel movement frequency and consistency. Saw Dr. Garay in March, recommended pelvic floor PT due to urinary frequency/incontinence, first appt this week which she felt went well. She has cut out caffeine. These have reduced nocturia from 2-3 times per night to once. No N/V/C/D. Good appetite. No VB/VD. Oncologic History: Oncology History Endometrial cancer (HCC) 08/09/2023 Initial Diagnosis Endometrial cancer (HCC) 08/19/2023 Surgery RA-TLH/BSO, cystoscopy. Non-mapping sentinel nodes, frozen FIGO grade 1 and < 50 % myoinvasion. Lymph node dissection deferred. Final stage IA (IA2 -2022). MMR intact. ROS: All other medical and surgical histories reviewed and updated. PE: BP: 189/100 Temp: 36.8 ?C (98.2 ?F) Temp src: Oral Pulse: 67 SpO2: 96 % Gen: well appearing, alert Abd: soft, incisions well healed, non-tender, non-distended Pelvic: well-circumscribed patches of erythema to BL medial thighs and inguinal folds and perineum and non-tender symmetrical erythema and thickening of vulva consistent with dermatitis; typical atrophic changes in vagina, cuff well healed; No nodularity on bimanual exam. Dr. Merrill served as weight trainer. Rectal: deferred Ext: non-tender, BLE in lymphedema wraps The sensitive examination was discussed with the Patient or Patient's Authorized Tire Installer. As applicable, any other physician, advance practice provider, medical student, or other health professional student that will be observing or involved in the sensitive examination for educational or training purposes was discussed with the Patient or Authorized Tire Installer. The Patient or Authorized Tire Installer has agreed to proceed with the sensitive examination. (Sensitive examination includes inspection and/or palpation of the breasts, pelvis, prostate and anorectal regions) Lab/Imaging: A. Uterus, cervix, bilateral fallopian tubes and ovaries, total robotic laparoscopic hysterectomy with bilateral salpingo-oophorectomy: -- Endometrium: Endometrial adenocarcinoma, endometrioid type FIGO grade 1, invades 31% (6/19 mm) of myometrium, see comment and case summary. -- Myometrium: Leiomyoma and adenomyosis. -- Cervix: Negative for cervical stromal involvement. -- Bilateral fallopian tubes: Negative for carcinoma. 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 Garay in March, referred to pelvic floor PT, which has been improving her nocturia Incontinence-associated dermatitis - Areas of erythema to BL medial thighs, inguinal folds, perineum and vulva consistent - Discussed use of barrier creams such as zinc oxide to prevent irritation when wearing incontinence pads Li Merrill, 05/25/2024 10:32 AM Alfredo Ureña MD, MPH Gynecologic Oncologist Medical Decision Making: Problems: Moderate: 2+ stable chronic illnesses Risk: Low: Low risk from testing/treatment Medical Decision Making Level: 3 - Low [facility] 05-25-2024 History of Presen t illness Narrative Gynecologic Oncology Note [facility] Chief complaint: Surveillance (3 months) HPI: This is a 63 year old with h/o stage IA2 FIGO grade 1 EAC of the uterus s/p RA-TLH/BSO, PLND here for surveillance. Patient is without concern today. She has been doing PT on Tuesdays and , has been going well. She has been increasing her water intake, which has improved her bowel movement frequency and consistency. Saw Dr. Garay in March, recommended pelvic floor PT due to urinary frequency/incontinence, first appt this week which she felt went well. She has cut out caffeine. These have reduced nocturia from 2-3 times per night to once. No N/V/C/D. Good appetite. No VB/VD. Oncologic History: Oncology History Endometrial cancer (HCC) 08/09/2023 Initial Diagnosis Endometrial cancer (HCC) 08/19/2023 Surgery RA-TLH/BSO, cystoscopy. Non-mapping sentinel nodes, frozen FIGO grade 1 and < 50 % myoinvasion. Lymph node dissection deferred. Final stage IA (IA -2022). MMR intact. ROS: All other medical and surgical histories reviewed and updated. PE: BP: 189/100 Temp: 36.8 C (98.2 F) Temp src: Oral Pulse: 67 SpO2: 96 % Gen: well appearing, alert Abd: soft, incisions well healed, non-tender, non-distended Pelvic: well-circumscribed patches of erythema to BL medial thighs and inguinal folds and perineum and non-tender symmetrical erythema and thickening of vulva consistent with dermatitis; typical atrophic changes in vagina, cuff well healed; No nodularity on bimanual exam. Dr. Merrill served as weight trainer. Rectal: deferred Ext: non-tender, BLE in lymphedema wraps The sensitive examination was discussed with the Patient or Patient's Authorized Tire Installer. As applicable, any other physician, advance practice provider, medical student, or other health professional student that will be observing or involved in the sensitive examination for educational or training purposes was discussed with the Patient or Authorized Tire Installer. The Patient or Authorized Tire Installer has agreed to proceed with the sensitive examination. (Sensitive examination includes inspection and/or palpation of the breasts, pelvis, prostate and anorectal regions) Lab/Imaging: A. Uterus, cervix, bilateral fallopian tubes and ovaries, total robotic laparoscopic hysterectomy with bilateral salpingo-oophorectomy: -- Endometrium: Endometrial adenocarcinoma, endometrioid type FIGO grade 1, invades 31% (6/19 mm) of myometrium, see comment and case summary. -- Myometrium: Leiomyoma and adenomyosis. -- Cervix: Negative for cervical stromal involvement. -- Bilateral fallopian tubes: Negative for carcinoma. 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 Garay in March, referred to pelvic floor PT, which has been improving her nocturia Incontinence-associated dermatitis - Areas of erythema to BL medial thighs, inguinal folds, perineum and vulva consistent - Discussed use of barrier creams such as zinc oxide to prevent irritation when wearing incontinence pads Li Merrill DO 05/25/2024 10:32 AM Alfredo Ureña MD, MPH Gynecologic Oncologist Medical Decision Making: Problems: Moderate: 2+ stable chronic illnesses Risk: Low: Low risk from testing/treatment Medical Decision Making Level: 3 - Low documented in this encounter [facility] 05-24-2024 Instructions Lucia Benitez RN - 05/24/2024 10:55 AM EDT WOUND CARE INSTRUCTIONS- Shade Brambila Wound location: Bilateral Lower Leg Wounds - Gather supplies - Place down a clean work surface such as new paper towel or newly cleaned towel. - Clean all metal instruments with rubbing alcohol before and after each use. - Plastic garbage bag for old dressing - Wash your hands with soap and water before and after wound care. Wash your foot with dial soap and water. Dry well between the toes. Bilateral Lower Extremity Wound Care: Wash wounds with: Vashe Apply to wound bed: Medihoney gel, Adaptic, Calcium Alginate Ag Cover wounds with: 4x4 [place] SAP bandages Other: change dressings daily, moisturize lower legs with vaseline daily - Apply Farrow wraps every morning: Apply compression first thing in the morning. OK to remove compression at bedtime. Compression must be removed if: it becomes wet or soiled If you have numbness or tingling in your foot or toes If you have increased pain If toes become cold or discolored - Avoid sitting with legs in a dependent position or standing for long periods of time. - Attempt to lay flat and elevate your legs above the level of your heart 2-3 times daily, for 30 minutes at a time. - Be sure to continue walking and/or calf pumps and exercises to mimic writing the alphabet with your foot, as instructed Foot care Many people with diabetes lose the feeling in their feet (neuropathy). Therefore, they might not know they have an injury that can lead to serious problems, such as foot removal (amputation). By taking care of your feet, most serious problems can be prevented. If you have problems checking your own feet, have a family member or friend help you. Easy steps to protect your feet: Check your feet every day for: dry or cracked skin, cuts, open sores, blisters, redness, swelling, corns, calluses, or toenail problems. Use a mirror if necessary. Report any problems to your doctor. Keep your feet clean and dry, especially between the toes. If your feet are dry or cracked use a moisturizing lotion at least daily but never between the toes. See your judicial clerk every three months for foot and nail care. Don't go barefoot. Wear shoes or slippers at all times. Wear comfortable shoes that fit well. Check inside your shoes for foreign objects or rough spots before putting on shoes. Always wear socks. Avoid using anything hot, such as heating pads, hot water bottles, hot tubs, or bath water. Check the temperature of bath water with your elbow not your foot. Take your shoes and socks off at every office visit to remind your doctor to check your feet. Also, never tape a dressing directly to the skin on your legs or feet. Instead, use a self-adherent bandage to avoid injuring the skin on your lower extremities If calluses form they can cause wound ulcers to appear under the callus, must be seen by [employer] every three months to prevent. Maintain controlled blood sugar, if blood sugar is consistently above 200 this can delay wound healing and aggravate neuropathy. - Control your sodium intake as instructed by provider To give your wound the best chance to heal: - Eat three balanced meals daily focusing on the protein - Control your blood sugar. Keep blood sugar less than 200 - Complete your wound care instructions as ordered - Vitamin C 500 mg twice daily - Multiple Vitamin Daily - Drink a protein shake daily - Premiere Clear or Glucerna for Diabetic patients, Nepro for renal patients and premiere for non-renal and non-diabetic patients Report any of the following signs and symptoms of infection to the Wound Center at [phone] or go to the Emergency Department: Fever or chills Increased drainage Green or yellow drainage Foul odor Increased pain Hardness around the wound Redness, warmth or swelling of the surrounding tissue Color change to the wound Evenings / Weekends / Holidays If you call the wound center at the phone number provided above, please leave a detailed message that includes your full name, birthday, and phone number. We are seeing patients during the day, so we will return your call within a 24-48 hr period in the order your call was received. There is not an on-call provider assigned to the wound center. If you have an emergency that needs to be addressed, please go to an Urgent Care or Emergency Room. Thank you for your cooperation and understanding. Due to the cold and flu season approaching us, if you have any symptoms such as a cough, fever, chills, nausea, vomiting, diarrhea, and/or body aches, please call and reschedule your appointment in the Wound Center. PLAN/ORDERS: Follow-up in the Wound Center with Dr Eric DPM in June 07, 2024 at 11:00 am. Continue aggressive nutritional support to assist wound healing, focusing on increasing protein intake, keeping blood sugars stable/controlled Wound care supplies were ordered through [facility], please call monthly for additional supplies at the phone number provided: . Continue wearing Farrow wraps for compression May consider HBOT again in the future Dr. Berny Reyes DPM/harmony/demi documented in this encounter [facility] 05-24-2024 Nurse Note Nursing Documentation Pertinent Medical History: DM2, HTN, venous insufficiency, & heart failure Wound Etiology according to patient: leg swelling & wounds February 2024 Pt had right great toe amputation June 18, 2023 Patient arrived via: Ambulatory with [facility] Care Company/Nursing Facility: N/A Consent captured for debridement per Dr. Alfredo Moore DPM and linda until March 2024 Consent captured for debridement per Dr. Berny Reyes DPM and linda until 2024 Consent captured for debridement per Dr. Hu Pickard DPM and linda until September 2024 Anticoagulant Therapy: ASA 81mg ACTIVE CARE PER PROVIDER: Giovanni HAM, Hu HAM, & Alfredo Moore DPM Wounds 1-30 previously closed WOUND # 34 LOCATION: Right Distal Medial Lower Leg-CLOSED 03/13/24 (February 2024) CLOSED 03/13/24, closed 03/29/24 Application Dates: Grafts are complete 01/07/2023 Apligraf 01/15/2023 Apligraf 01/21/2023 Apligraf 01/27/2023 Apligraf 02/04/2023 Apligraf WOUND # 35 LOCATION: Right Posterior Lower Leg (February 2024) Closed 03/29/24, closed 04/12/24 WOUND ASSESSMENT: Refer to Provider's Wound Assessment Note VASCULAR ASSESSMENT BY PROVIDER: See provider wound assessment note CHF History: Yes as of February 2022, Dr. Sadler in Cardiology EDEMA: Right Foot: none Right Ankle: none Right Calf: trace Left Foot: none Left Ankle: none Left Calf: trace Other: N/A MEASUREMENTS: in cm Right Calf: 32.7 Right Ankle: 21.5 Left Calf: 32 Left Ankle: 21.5 Length: 43.0 WOUND PHOTOGRAPHY: no x 3, (last taken 05/10/24) DEBRIDEMENT PROCEDURE BY PROVIDER: Anesthetic Used: 2% lidogel applied by Valencia Manuel RN Other procedure: n/a Specimen collected:n/a WOUND TREATMENT PER MD ORDER: Wounds cleansed by mechanical debridement to allow provider to visualize wound base WOUND # 31 LOCATION: Left Anterior Lower Leg (February 2024) L: 0.7 cm x W: 0.4 cm x D: 0.1 cm WOUND # 32 LOCATION: Left Posterior Lower Leg Cluster (February 2024) L: 1.6 cm x W: 1.9 cm x D: 0.1 cm WOUND # 33 LOCATION: Right Medial Lower Leg (February 2024) L: 0.8 cm x W: 0.7 cm x D: 0.1 cm WOUND # 34 LOCATION: Right Posterior Inferior (May 2024) L: 1.2 cm x W: 1.0 cm x D: 0.1 cm Cleansed with: Vashe Applied to naya-wound skin: skin prep, vaseline Applied to wound bed: medihoney gel, adaptic, calcium alginate ag Covered and secured with: 4x4 excel sap Other: farrows COMPRESSION: Tubi-tobacco wetter size D followed by patient's own Jobst Farrow wraps SPECIAL NEEDS: Coordination of care N/A Emotional support N/A OR set-up N/A Yarn Examiner N/A Incontinence needs N/A DME company: ordered 03/01/24 (supplies and Farrow wraps) DISCHARGED in stable condition to: ambulatory with cane PLAN/ORDERS: Follow-up in the Wound Center with Dr Eric DPM in June 07, 2024 at 11:00am. Continue aggressive nutritional support to assist wound healing, focusing on increasing protein intake, keeping blood sugars stable/controlled Wound care supplies were ordered through [facility], please call monthly for additional supplies at the phone number provided: . Continue wearing Farrow wraps for compression May consider HBOT again in the future EDUCATION: Continuation of current wound care, follow up. The patient/family was instructed how to cleanse the wound(s). Visual demonstration on how to apply the dressing with teach back method. Signs & symptoms of infection were reviewed: Increased redness, swelling, pain, green/yellow drainage, fever and/or chills would all need to be evaluated by a Physician. Patient received typed home-going wound care instructions and has expressed intent to comply. OTHER EDUCATION: Education performed regarding lymphedema/edema: Elevation of extremity above the heart for 30 minutes three times daily and as needed Exercise such as writing the ABC's with your toes in the air, walking and/or calf pumps Wearing compression as ordered by provider Diet controlling of sodium as instructed by provider Use of medication to help control edema. UNIVERSAL PROTOCOL / SAFETY CHECKLIST - Procedure to be Performed sharp debridement of lower leg wounds Sign In: 1104 A Moment of CARE was completed. Personnel directly involved with the procedure wore the appropriate PPE (Personal Protective Equipment). Patient/Surrogate Stated/Verified: 1104 PATIENT VERIFIED(optional for EMERGENT procedures): Patient name, Date of , Relevant allergies, and The intended procedure Time Out Communication: 1104 Intended patient and procedure match the source documents. Consent documented and matches the intended procedure. No relevant labs, photos, and/or imaging studies were applicable for review. Sign Out: 1110 SIGN OUT (optional for EMERGENT procedures): All instruments, equipment, possible retained foreign bodies accounted for. Lucia Benitez RN/demi Current HBOT Status: Active or Complete - see screening below WOUND CENTER HYPERBARIC OXYGEN THERAPY SCREENING 1. Is the patient diabetic? (If No, skip to question 5) Yes 2. Does the patient have a lower extremity wound? Yes 3. Is there exposed/involved tendon or bone? 4. Has the wound been present for 30 days? Yes If Yes to ALL questions above, consult the Hyperbaric Center 5. Has the patient been diagnosed with osteomyelitis? No 6. Has the patient had a previous skin graft or flap at the wound? No 7. Has the patient had or been offered vascular intervention/evaluation? No 8. Does the patient have a wound at an amputation site? Yes 9. Has the patient had radiation therapy at the site of the problem? No If Yes to ANY of questions 5-9, consult the Hyperbaric Center Lucia Benitez RN/demi [facility] 05-24-2024 Nurse Note Nursing Documentation Pertinent Medical History: DM2, HTN, venous insufficiency, & heart failure Wound Etiology according to patient: leg swelling & wounds February 2024 Pt had right great toe amputation June 18, 2023 Patient arrived via: Ambulatory with [facility] Care Company/Nursing Facility: N/A Consent captured for debridement per Dr. Alfredo Moore DPM and linda until March 2024 Consent captured for debridement per Dr. Berny Reyes DPM and linda until 2024 Consent captured for debridement per Dr. Hu Pickard DPM and linda until September 2024 Anticoagulant Therapy: ASA 81mg ACTIVE CARE PER PROVIDER: Giovanni Bolanos DPM, Hu Pickard DPM, & Alfredo Moore DPM Wounds 1-30 previously closed WOUND # 34 LOCATION: Right Distal Medial Lower Leg-CLOSED 03/13/24 (February 2024) CLOSED 03/13/24, closed 03/29/24 Application Dates: Grafts are complete 01/07/2023 Apligraf 01/15/2023 Apligraf 01/21/2023 Apligraf 01/27/2023 Apligraf 02/04/2023 Apligraf WOUND # 35 LOCATION: Right Posterior Lower Leg (February 2024) Closed 03/29/24, closed 04/12/24 WOUND ASSESSMENT: Refer to Provider's Wound Assessment Note VASCULAR ASSESSMENT BY PROVIDER: See provider wound assessment note CHF History: Yes as of February 2022, Dr. Sadler in Cardiology EDEMA: Right Foot: none Right Ankle: none Right Calf: trace Left Foot: none Left Ankle: none Left Calf: trace Other: N/A MEASUREMENTS: in cm Right Calf: 32.7 Right Ankle: 21.5 Left Calf: 32 Left Ankle: 21.5 Length: 43.0 WOUND PHOTOGRAPHY: no x 3, (last taken 05/10/24) DEBRIDEMENT PROCEDURE BY PROVIDER: Anesthetic Used: 2% lidogel applied by Valencia Manuel RN Other procedure: n/a Specimen collected:n/a WOUND TREATMENT PER MD ORDER: Wounds cleansed by mechanical debridement to allow provider to visualize wound base WOUND # 31 LOCATION: Left Anterior Lower Leg (February 2024) L: 0.7 cm x W: 0.4 cm x D: 0.1 cm WOUND # 32 LOCATION: Left Posterior Lower Leg Cluster (February 2024) L: 1.6 cm x W: 1.9 cm x D: 0.1 cm WOUND # 33 LOCATION: Right Medial Lower Leg (February 2024) L: 0.8 cm x W: 0.7 cm x D: 0.1 cm WOUND # 34 LOCATION: Right Posterior Inferior (May 2024) L: 1.2 cm x W: 1.0 cm x D: 0.1 cm Cleansed with: Vashe Applied to naya-wound skin: skin prep, vaseline Applied to wound bed: medihoney gel, adaptic, calcium alginate ag Covered and secured with: 4x4 excel sap Other: farrows COMPRESSION: Tubi-tobacco wetter size D followed by patient's own Jobst Farrow wraps SPECIAL NEEDS: Coordination of care N/A Emotional support N/A OR set-up N/A Yarn Examiner N/A Incontinence needs N/A [employer] company: ordered 03/01/24 (supplies and Farrow wraps) DISCHARGED in stable condition to: ambulatory with cane PLAN/ORDERS: Follow-up in the Wound Center with Dr Eric DPM in June 07, 2024 at 11:00am. Continue aggressive nutritional support to assist wound healing, focusing on increasing protein intake, keeping blood sugars stable/controlled Wound care supplies were ordered through [facility], please call monthly for additional supplies at the phone number provided: . Continue wearing Farrow wraps for compression May consider HBOT again in the future EDUCATION: Continuation of current wound care, follow up. The patient/family was instructed how to cleanse the wound(s). Visual demonstration on how to apply the dressing with teach back method. Signs & symptoms of infection were reviewed: Increased redness, swelling, pain, green/yellow drainage, fever and/or chills would all need to be evaluated by a Physician. Patient received typed home-going wound care instructions and has expressed intent to comply. OTHER EDUCATION: Education performed regarding lymphedema/edema: Elevation of extremity above the heart for 30 minutes three times daily and as needed Exercise such as writing the ABC's with your toes in the air, walking and/or calf pumps Wearing compression as ordered by provider Diet controlling of sodium as instructed by provider Use of medication to help control edema. UNIVERSAL PROTOCOL / SAFETY CHECKLIST - Procedure to be Performed sharp debridement of lower leg wounds Sign In: 1104 A Moment of CARE was completed. Personnel directly involved with the procedure wore the appropriate PPE (Personal Protective Equipment). Patient/Surrogate Stated/Verified: 1104 PATIENT VERIFIED(optional for EMERGENT procedures): Patient name, Date of , Relevant allergies, and The intended procedure Time Out Communication: 1104 Intended patient and procedure match the source documents. Consent documented and matches the intended procedure. No relevant labs, photos, and/or imaging studies were applicable for review. Sign Out: 1110 SIGN OUT (optional for EMERGENT procedures): All instruments, equipment, possible retained foreign bodies accounted for. Lucia Benitez RN/demi Current HBOT Status: Active or Complete - see screening below WOUND CENTER HYPERBARIC OXYGEN THERAPY SCREENING 1. Is the patient diabetic? (If No, skip to question 5) Yes 2. Does the patient have a lower extremity wound? Yes 3. Is there exposed/involved tendon or bone? 4. Has the wound been present for 30 days? Yes If Yes to ALL questions above, consult the Hyperbaric Center 5. Has the patient been diagnosed with osteomyelitis? No 6. Has the patient had a previous skin graft or flap at the wound? No 7. Has the patient had or been offered vascular intervention/evaluation? No 8. Does the patient have a wound at an amputation site? Yes 9. Has the patient had radiation therapy at the site of the problem? No If Yes to ANY of questions 5-9, consult the Hyperbaric Center Lucia Benitez RN/demi documented in this encounter [facility] 05-23-2024 History of Presen t illness Narrative [facility] [place] [facility] AT [address] [place] [address] Dept: [phone] Dept PHYSICAL THERAPY EVALUATION Pelvic Health Patient Name: Shade Brambila : 1960 Date of Service: 05/23/2024 Referring Provider: Hamlet Garay MD Visit #: 1 Diagnosis: OAB (overactive bladder) General Information Mechanism of injury: Pt reports she was doing Hyperbarics for her leg wound 11/2022 to 03/2023, then pt states her bladder issues started in 05/2023. Pt reports it is mostly at night with increased nocturia 3 x/ night and urgency UI. Pt's MD did recommend she reduce diet soda intake, elevated legs 2-3 hours before bed and stop drinking 2 hours before bed. Pt reports nocturia reduced to 1 x/ night. Patient Preferences: Vanessa Precautions/Red Flags: Yes S/P operations on 08/19/[address] Alfredo Ureña Robotic assisted total laparoscopic hysterectomy Bilateral salpingo-oophorectomy [place] lymph node mapping Cystoscopy Path: FIGO grade 1 EAC of uterus She did not need adjuvant therapy. Patient had hyperbaric treatments for wound on LLE. Afterwards she noticed urgency and urge incontinence. She denies prolapse symptoms for at least months. She has not tried a pessary. She denies PAO with coughing, laughing, and sneezing. She reports UUI, mainly at night She does have symptoms of urinary urgency and frequency. She does feel that she empties her bladder completely. She has not tried overactive bladder medications. Avoid Estrogen d/t Uterine CA Fall Risk: No Work status: [employer], works from Home-mostly sits at computer. PMHX: Shade has a past medical history of Anxiety, Depression, Diabetes mellitus (HCC), Hyperlipidemia, and Hypertension. PSHX: Shade has a past surgical history that includes Tonsillectomy. Have you experienced any anxiety or depression?: No Have you experienced thoughts of self-harm or suicidal thoughts?: No Social Determinates of Health Reviewed: Yes Physician follow-up appointment?: No Subjective Chief Complaint: See specialty below Prior Level of Function: Independent Current Level of Function: Pt ambulates into PT clinic with std cane, slow fatimah , decreased step length, wide DOMINIC. Pt wearing B wound care wraps, B knee braces/compression braces. Fair balance and stability on level surfaces. Pt having PT for strengthening Patient s Stated Goal: Eliminate UI and normalize urinary frequency. Additional Specialty Information: PELVIC HEALTH Hx and sx : ; Urinary Sx Incontinence: mixed a few drops to wet under roy Post-void dribble: No Urgency: Yes Aggravating/alleviating factors: bladder irritants Voiding frequency: Every 2-3 hours Nocturia: Yes , 1x /night ( but was more like 3 x/ night) Sensation of incomplete bladder emptying: No Pain associated with bladder and/or voiding: No Use of Protection: Type: Discrete level 5 Quantity: wears at night : changes 1-3 x Bowel sx Constipation: yes, but better now drinking water Straining: Yes but better now drinking water Hemorrhoids: No Sensation of incomplete bowel emptying: No Splinting: No Fecal incontinence: on with diarrhea Frequency of BM: 1 x/ day Dietary Water intake: 64 fl. Oz/day Dietary irritants: stopped drinking diet pop; OJ=with low sugar Pain-denies Questionnaire: NIH-CPSI: female Score: 945 Objective Observations Surgical incisions (location, observations): Pt wearing B would wraps and R knee brace (compression) Functional mobility: Independent but uses a std cane for ambulation for balance and stability Ortho screen Posture Observations: Pt demonstrates flexed posture at hips and trunk, decrease static and dynamic standing balance Lumbar ROM: Limited in standing d/t poor balance Hip ROM: WFL but limited d/t decreased flexibility Palpation: N/a LQ Strength L R HIP Flexion 3+/5 3+/5 Extension 3+/5 3-/5 Abduction 3-/5 3-/5 KNEE Flexion 4/5 4-/5 Extension 5/5 5/5 ANKLE Dorsiflexion 3/5 3/5 Plantarflexion 2+/5 2+/5 CORE 2/5 Flexibility: LEFT RIGHT Hip Adductors SEVERE SEVERE Hip External Rotators SEVERE SEVERE Iliopsoas SEVERE SEVERE Hamstrings SEVERE SEVERE Assessment Shade is a 63 y.o. patient who presents to PT with a diagnosis of OAB (overactive bladder). Pt demonstrates PF/bladder dysfunctions, general whole body weakness, core weakness, balance deficits, contributing to UI, impaired function and reduced quality of life.. . The patient would benefit from skilled physical therapy to address decreased strength, decreased range of motion, decreased mobility, soft tissue impairment, impaired functional activities, and PF & bladder dysfunctions . Evaluation complexity is moderate secondary to: patient has 3 or more personal factors and/or comorbidities that will affect plan of care, therapy will be addressing 3 or more elements, and clinical presentation is evolving. Body Systems Affected: musculoskeletal and neuromuscular Rehab Potential: Good Learning Preferences: demonstration, explanation, performance, and printed materials Barriers to Rehab: chronicity and duration of symptoms Goals General/Ortho Patient will be independent with HEP. (Initiated) Start: 05/23/24 Expected End: 08/22/24 Patient will increase strength in B LE to >4/5 to 5/5 and core to 3/5 to be able to improve PF function and general mobility to be able to reach bathroom in appropriate time without UI. (Initiated) Start: 05/23/24 Expected End: 08/22/24 Pelvic Health Pt will reduce summary score on gender appropriate NIH-CPSI to 4/45 to improve patient's perceived quality of life (Initiated) Start: 05/23/24 Expected End: 08/22/24 Pt will reduce use of pads to 0 pads per night (Initiated) Start: 05/23/24 Expected End: 08/22/24 Pt will reduce urinary incontinence to complete elimination (Initiated) Start: 05/23/24 Expected End: 08/22/24 Plan Frequency and Duration: 1/wk for 12 weeks Therapeutic Contents: client education, home exercise program, manual therapy techniques, neuromuscular re-education, sensory re-education/desensitization, therapeutic activities, modalities as needed, and bladder re-training Plan for next session: Complete internal PF mm assessment, progress HEP as tolerated and further education for optimal pelvic health. Risks and benefits were discussed with the patient and/or family, and the patient and/or family participated with the plan of care and agrees. Treatment Patient education with verbal & written information provided for the following: Pathology/Involved Anatomy: Use of 3 D PF model to explain: PF/bladder dysfunctions; Bowel & Bladder Health: Discussed normalized bladder/bowel health vs dysfunctional habits, Normalized urinary frequencies; Bladder Re-training: Discussed Night time strategies, urge suppression Dietary Irritants: Discussed effects of bladder irritants on bladder & urinary urgency Pelvic Floor Assessment: Discussed rational, informed consent*, completion & findings explained. (*Consent for pelvic floor assessment, muscle testing and treatment: Patient received education regarding pelvic floor physical therapy assessment/treatment with use of 3D pelvic floor model for education on relevant pelvic floor anatomy. Assessment and treatment may include an external or internal (visual and/or digital/tactile) approach for assessment/treatment of perineal tissues, pelvic floor and pelvic girdle muscles. Patient provided freely given, reversible, informed, enthusiastic and specific consent for internal pelvic floor muscle assessment and treatment today. Patient understands that they have control of the assessment and treatment, having the opportunity to stop treatment at any time. Patient also provided written consent at initial evaluation. ) Therapeutic Activity # of Activities: 4 Therapeutic Activity 1: Initial Pelvic Helath Evaluation Education Activity 1 Comment: HEP ( add: stretches: hip add., hip Rot. , hip flex next session) Therapeutic Activity 2: Read over educational packet Activity 2 Comment: Internal PF mm assessment-deferred d/t time contraints Therapeutic Activity 3: Initiate next session per pt's consent:Pelvic Floor Assessment: Discussed rational, informed consent*, completion & findings explained. (*Consent for pelvic floor assessment, muscle testing and treatment: Patient received education regarding pelvic floor physical therapy assessment/treatment with use of 3D pelvic floor model for education on relevant pelvic floor anatomy. Assessment and treatment may include an external or internal (visual and/or digital/tactile) approach for assessment/treatment of perineal tissues, pelvic floor and pelvic girdle muscles. Patient provided freely given, reversible, informed, enthusiastic and specific consent for internal pelvic floor muscle assessment and treatment today. Patient understands that they have control of the assessment and treatment, having the opportunity to stop treatment at any time. Patient also provided written consent at initial evaluation. ) Home Exercise Program: Created Time Entry Total Treatment Time Start Time: 1403 Stop Time: 1455 Time Calculation (min): 52 min PT Evaluation Time Entry PT Evaluation (Moderate) Time Entry: 40 PT Therapeutic Procedures Time Entry Therapeutic Activity Time Entry: 12 Hu Hawley PT documented in this encounter [facility] 05-11-2024 History of Presen t illness Narrative Date of Visit: 05/10/2024 Problem list reviewed. CHIEF COMPLAINT: NEW RT posterior distal lower leg wound check B/L lower leg wounds DM II A1c 8.3 (10/07/23) DLS 02/08/24 HISTORY OF PRESENT ILLNESS: Patient last seen 04/26/24. wounds are smaller today and less drainage. Here today for B/L lower leg wound check. she has new wound to right posterior distal lower leg. she did not know it was open and don't know how it happened. no signfiicant drainage noted. she is wearing her old circade wraps but don't feel like they are compressing much Denies N/V/F/C/D/SOB/CP/LP. She relates she can't feel feet well due to neuropathy. She has numbness and toe amputations. Referred by Dr. Dasilva. 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 Right 2nd toe amputation and hallux I&D 10/28/22. Hx s/p RT toe amp 3,4,5 (DOS 10/14/23) DME DM inserts 08/24/23 rx circade wraps 08/14/22 CURRENT MEDICATIONS: Percocet Oral Tablet 5-325 MG (10/27/2023) Take 1 tablet every 6 hours as needed for 4 day(s) Clindamycin HCl Oral Capsule 300 MG (11/26/2022) TAKE 1 CAPSULE BY MOUTH EVERY 8 HOURS FOR 7 DAYS. oxyCODONE-Acetaminophen Oral Tablet 5-325 MG (10/28/2022) Ketorolac Tromethamine Ophthalmic Solution 0.5 % (04/26/2023) Accu-Chek Jose Plus In Vitro Strip (09/23/2022) Sulfamethoxazole-Trimethoprim Oral Tablet 800-160 MG (06/24/2023) Atorvastatin Calcium Oral Tablet 80 MG (06/13/2023) miSOPROStol Oral Tablet 200 MCG (06/15/2023) TAKE 2 TABLETS BY MOUTH THE DAY PRIOR TO PROCEDURE AT BEDTIME WITH FOOD Fluticasone Propionate Nasal Suspension 50 MCG/ACT (12/15/2022) USE 2 SPRAYS IN EACH NOSTRIL DAILY X1 WEEK,THEN 1 SPRAY IN EACH NOSTRIL DAILY THEREAFTER NEEDED Nitrofurantoin Monohyd Macro Oral Capsule 100 MG (02/08/2023) Cephalexin Oral Capsule 500 MG (09/26/2022) Doxycycline Hyclate Oral Capsule 100 MG (11/10/2022) Fluconazole Oral Tablet 200 MG (03/20/2024) TAKE 1 TABLET EVERY DAY FOR 21 DAYS Bactrim DS Oral Tablet 800-160 MG (06/24/2023) Take 1 tablet twice a day for 10 day(s) Cipro Oral Tablet 500 MG (06/11/2023) Take 1 tablet twice a day for 7 day(s) Doxycycline Hyclate Oral Tablet 100 MG (06/08/2023) Take 1 tablet twice a day for 7 day(s) Ciprofloxacin HCl Oral Tablet 500 MG (11/10/2022) Take 1 tablet twice a day for 7 day(s) Cephalexin Oral Tablet 500 MG (10/23/2022) Take 1 tablet three times a day for 7 day(s) Ofloxacin Ophthalmic Solution 0.3 % (03/30/2023) diazePAM Oral Tablet 10 MG (02/19/2022) TAKE 1 TABLET 60 MIN BEFORE TEST Atorvastatin Calcium Oral Tablet 40 MG (11/18/2022) FLUoxetine HCl Oral Capsule 40 MG (01/26/2022) Enalapril Maleate Oral Tablet 10 MG (01/26/2022) TAKE 1 TABLET BY MOUTH EVERY DAY Erythromycin Ophthalmic Ointment 5 MG/GM (02/09/2022) APPLY 1 A SMALL AMOUNT LEFT EYE 4 TIMES A DAY Atorvastatin Calcium Oral Tablet 20 MG (01/26/2022) TAKE 1 TABLET BY MOUTH EVERY DAY Spironolactone Oral Tablet 25 MG (06/15/2023) TAKE 0.5 TABLETS BY MOUTH ONCE DAILY. Jardiance Oral Tablet 25 MG (06/14/2023) TAKE 1 TABLET BY MOUTH EVERY DAY WITH BREAKFAST Furosemide Oral Tablet 40 MG (11/18/2022) HumuLIN R U-500 KwikPen Subcutaneous Solution Pen-injector 500 UNIT/ML (06/14/2023) INJECT 40 UNITS SUBCUTANEOUSLY AT BREAKFAST, 100 UNITS AT LUNCH, 80 UNITS AT SUPPER. metFORMIN HCl Oral Tablet 1000 MG (11/23/2022) TAKE 1 TABLET BY MOUTH TWICE DAILY WITH MEALS. E11.3599 ALLERGIES: Band-Aid [place] Surg Dressing Other Bandaging Tape Other PAST MEDICAL HISTORY: Podiatry History remarkable for Foot Numbness, Fungal Nails, Leg or Foot Ulcers. The patient has a past medical history of Arthritis, Depression, DM-Medication Dependent, Poor Circulation. Neuropathy High Cholesterol SURGICAL HISTORY: Hand Tonsils HOSPITALIZATIONS: None Noted SOCIAL HISTORY: Smoking Status: Never smoker; Last Reviewed: 12/08/2023 Alcohol use: social drinker No drug use Social History Reviewed (01/16/2021 11:20:18 AM EST) FAMILY HISTORY: There is a family history of Denial of any knowledge of significant family history. Denial of any knowledge of significant family history Family History Reviewed (01/16/2021 11:20:19 AM EST) REVIEW OF SYSTEMS: Psychologic: Admits to No psych symptoms. Review of systems otherwise negative PHYSICAL EXAMINATION: Vital Signs: Weight 235 lbs; Height 5 ft 8 in; BMI 35.7 05/07/2024 1:16 AM (EST) Temperature 98.6 F; Pulse Rate 100 bpm; Blood Pressure 120 / 80 mm/Hg Vascular Exam: BL Foot DP / PT pulses +2/4. 2+ edema B/L LE CFT less than 3 seconds to digits LEFT, skin temp warm to warm from proximal to distal BL Foot Dermatologic Exam: LT medial lower leg wound healed LT anterior lower leg wound predebridement measures 1x0.6x0.1cm and post debridement measures 1x0.5x0.1cm with 60:40 granular fibrotic base, surrounding slough, no erythema, no purulence, no probe to bone, no malodor, MOD serous drainage. Into level of SUBCUTANEOUS TISSUE LT posterior lower leg cluster wound predebridement measures 1.5x1.5x0.1cm and post debridement measures 1.6x1.6x0.1cm with 70:30 granular fibrotic base post, surrounding slough, no erythema, no purulence, no probe to bone, no malodor, MOD serous drainage. Into level of SUBCUTANEOUS TISSUE RT medial lower leg cluster wound measures 0.7x0.7x0.1cm and post debridement measures 0.8x0.8x0.1cm with 80:20 granular fibrotic base, surrounding slough, no erythema, no purulence, no probe to bone, no malodor, MOD serous drainage. Into level of SUBCUTANEOUS TISSUE NEW RT posterior inferior lower leg wound measures 1.2x1.5x0.1cm and post debridement measures 1.3x1.6x0.1cm with 90:10 granular fibrotic base, surrounding slough, no erythema, no purulence, no probe to bone, no malodor, MOD serous drainage. Into level of SUBCUTANEOUS TISSUE LEFT foot 2nd toe tuft hyperkeratotic tissue Nails 1-5 left are thickened, elongated and discolored with subungual debris. The nails are greater than .3mm in thickness. The discoloration is yellowish in color. Innerspaces 1-4 LT are clean dry and intact. Skin texture and turgor are decreased. absent or decreased hair growth bilateral. chronic lower leg red hyperpigmentation Neurologic Exam: Comments/Other Findings: Vibratory sensations decreased LT, Protective sensations absent LT tested with 5.07 monofilament, and light, sharp, and temperature sensations intact LT. Normal Babinski test noted bl foot after testing Orthopedic Exam: Additional Orthopedic Findings: RT foot toe amputations 1,2,3,4,5 LEFT 2nd hammertoe contracture semi- rigid DIAGNOSIS: Type II diabetes mellitus with neurological manifestations Lymphedema of both lower extremities PVD (peripheral vascular disease) History of amputation of right great toe Amputated toe of right foot Hammertoe of right foot Personal history of diabetic foot ulcer Callus Diabetic ulcer of toe of left foot associated with type 2 diabetes mellitus, limited to breakdown of skin Swelling of right lower extremity Surgical wound dehiscence Onychomycosis Skin ulcer of left great toe, limited to breakdown of skin Venous ulcer of left lower extremity without varicose veins Ulcer of left lower extremity, limited to breakdown of skin Venous ulcer of right lower extremity without varicose veins Ulcer of right lower extremity, limited to breakdown of skin PLAN AND TREATMENT: ASSESMENT & PLAN BL Foot and Ankle and Lower extremity Exam and Evaluation carried out with a treatment plan reviewed with the patient and findings discussed with patient including alternatives, benefits, complications and risks TESTS / IMAGING / X-RAY EXAM 12/22/21 PVR RESULTS: RIGHT SIDE Resting right ankle brachial index: 1.37Right toe brachial index: 0.70Normal ankle brachial index at rest in the right leg. Normal toe brachial index at rest in the right leg. Right ankle: Normal at rest. LEFT SIDE Resting left ankle brachial index: 1.33Left toe brachial index: 0.83Normal ankle brachial index at rest in the left leg. Normal toe brachial index at rest in the left leg. Left ankle: Normal at rest. PREVIOUS right foot XR: There was noted to be normal joint spaces unless noted. No fractures or dislocations noted. No soft tissue emphysema noted. No osteopenia or sclerosis noted. tibial and fibular sesamoid excised, there is small calcified piece of fibular sesamoid bone noted to plantar lateral 1st met. RT foot amp at MTPJ 1,2,3,4,5. no lytic lesions. no soft tissue gas noted. NEW RT posterior distal lower leg wound follow up B/L LE wounds LT anterior lower leg smaller and RT medial lower leg and LT posterior lower leg stable NEW RT posterior distal lower leg, LT anterior lower leg, LT posterior lower extremity cluster, and RT medial lower extremity noted in exam were treated with sharp excisional debridement carried out of the wound with non selective sharp excisional debridement past the dermis into SUBCUTANEOUS level with use of curette and 15 scalpel blade. Devitalized tissue removed. We then flushed out the wound with wound wash sterile saline. Area numbed with lidocaine gel if sensate prior. see phys exam Discussed importance in offloading, proper nutrition including blood sugar control and getting enough protein and vitamins, infection prevention, proper wound care in wound healing. Also discussed detrimental impact of smoking on healing. Reviewed proper wound care with patient. To not soak wound but to clean appropriately. To watch for signs of infection both local and systemic. These were reviewed with the patient. If seen to contact office or go to ED. To continue wound care consisting of washing the wound with medihoney and apply adaptic, alginate, excel SAP. circade or farrow wraps. change every day instructed needs to wear new farrow wraps which will help her with compression pad and protect area well ok to shower but pat dry after showering and do wound care she can wear normal tennis shoe we discussed that her wounds are from her high a1c. she has history of this when she loses control of blood sugar. instructed no local signs of infection Previously Rx Farrow wraps 30-40mmHg for compression Previously Rx PVR. has not had one since 2021. was normal at that time. Has new one scheduled for tomorrow PVR B/L LE reviewed with patient previously cont work with PCP for swelling control nutritional consultation was recommended. we went over proper diet and protein intake. 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 more mild disease to left lower leg from knee to calf.consider sending to vascular but should have adquate inflow to her lower leg PVR as below see back in 2 weeks at wound care center for B/L lower leg wounds Non-Invasive Vascular Laboratory [facility] Lower Extremity Arterial Physiology Study Bilateral/Complete Date of service/time: 04/05/2024 10:56:20 AM Name: MS. SHADE BRAMBILA Date of : 1960 Age: 63 years Gender: F Clinical Indication Leg/foot ulceration. TECHNIQUE -------- An arterial physiological examination was performed, including measurement of blood pressures using continuous wave Doppler and recording of plethysmographic with or without Doppler waveforms at the below-mentioned limb segments. FINDINGS -------- RIGHT SIDE AT REST Right Doppler Waveforms Dorsalis pedis: Multiphasic. Post tibial: Multiphasic. Right Pressures Brachial: 154 mmHg High thigh: greater than 255 mmHg Non-compressible arteries. Low thigh: greater than 255 mmHg Non-compressible arteries. Calf: greater than 255 mmHg Non-compressible arteries. Ankle dorsalis pedis: 146 mmHg MANJEET: 0.95 Ankle posterior tibial: 197 mmHg MANJEET: 1.28 Digit: Transmetatarsal amputation. Right PVR Waveforms High thigh: Normal. Low thigh: Normal. Calf: Normal. Ankle: Normal. Transmetatarsal: Normal. Digit: Transmetatarsal amputation. LEFT SIDE AT REST Left Doppler Waveforms Dorsalis pedis: Multiphasic. Post tibial: Multiphasic. Left Pressures Brachial: 153 mmHg High thigh: greater than 255 mmHg Non-compressible arteries. Low thigh: greater than 255 mmHg Non-compressible arteries. Calf: 218 mmHg Partially non-compressible arteries. Ankle dorsalis pedis: 138 mmHg MANJEET: 0.90 Ankle posterior tibial: 108 mmHg MANJEET: 0.70 Digit: 98 mmHg Left PVR Waveforms High thigh: Normal. Low thigh: Normal. Calf: Normal. Ankle: Mildly dampened. Transmetatarsal: Moderately dampened. Digit: Moderately dampened. Type II diabetes mellitus with neurological manifestations 250.60 E11.49 Diagnosis Notes Drag & Drop to change diagnosis order Lymphedema of both lower extremities 457.1 I89.0 Diagnosis Notes Drag & Drop to change diagnosis order PVD (peripheral vascular disease) 443.9 I73.9 Diagnosis Notes Drag & Drop to change diagnosis order History of amputation of right great toe V49.71 Z89.411 Diagnosis Notes Drag & Drop to change diagnosis order Amputated toe of right foot 895.0 S98.131A Diagnosis Notes Drag & Drop to change diagnosis order Hammertoe of right foot 735.4 M20.41 Diagnosis Notes Drag & Drop to change diagnosis order Personal history of diabetic foot ulcer V12.29 Z86.31 Diagnosis Notes Drag & Drop to change diagnosis order Callus 700 L84 Diagnosis Notes Drag & Drop to change diagnosis order Diabetic ulcer of toe of left foot associated with type 2 diabetes mellitus, limited to breakdown of skin 250.80 E11.621 Diagnosis Notes Drag & Drop to change diagnosis order Swelling of right lower extremity 729.81 M79.89 Diagnosis Notes Drag & Drop to change diagnosis order Surgical wound dehiscence 998.32 T81.31XA Diagnosis Notes Drag & Drop to change diagnosis order Onychomycosis 110.1 B35.1 Diagnosis Notes Drag & Drop to change diagnosis order Skin ulcer of left great toe, limited to breakdown of skin 707.15 L97.521 Diagnosis Notes Drag & Drop to change diagnosis order Venous ulcer of left lower extremity without varicose veins 459.81 I87.2 Diagnosis Notes Drag & Drop to change diagnosis order Ulcer of left lower extremity, limited to breakdown of skin 707.10 L97.921 Diagnosis Notes Drag & Drop to change diagnosis order Venous ulcer of right lower extremity without varicose veins 459.81 I87.2 Diagnosis Notes Drag & Drop to change diagnosis order Ulcer of right lower extremity, limited to breakdown of skin 707.10 L97.911 documented in this encounter [facility] 05-11-2024 Note [facility] 05-10-2024 Instructions Rosa Maria Lopes RN - 05/10/2024 10:35 AM EDT WOUND CARE INSTRUCTIONS- Shade Brambila Wound location: Bilateral Lower Leg Wounds - Gather supplies - Place down a clean work surface such as new paper towel or newly cleaned towel. - Clean all metal instruments with rubbing alcohol before and after each use. - Plastic garbage bag for old dressing - Wash your hands with soap and water before and after wound care. Wash your foot with dial soap and water. Dry well between the toes. Bilateral Lower Extremity Wound Care: Wash wounds with: Vashe Apply to wound bed: Medihoney gel, Adaptic, Calcium Alginate Ag Cover wounds with: 4x4 [place] SAP bandages Other: change dressings daily, moisturize lower legs with vaseline daily - Apply Farrow wraps every morning: Apply compression first thing in the morning. OK to remove compression at bedtime. Compression must be removed if: it becomes wet or soiled If you have numbness or tingling in your foot or toes If you have increased pain If toes become cold or discolored - Avoid sitting with legs in a dependent position or standing for long periods of time. - Attempt to lay flat and elevate your legs above the level of your heart 2-3 times daily, for 30 minutes at a time. - Be sure to continue walking and/or calf pumps and exercises to mimic writing the alphabet with your foot, as instructed Foot care Many people with diabetes lose the feeling in their feet (neuropathy). Therefore, they might not know they have an injury that can lead to serious problems, such as foot removal (amputation). By taking care of your feet, most serious problems can be prevented. If you have problems checking your own feet, have a family member or friend help you. Easy steps to protect your feet: Check your feet every day for: dry or cracked skin, cuts, open sores, blisters, redness, swelling, corns, calluses, or toenail problems. Use a mirror if necessary. Report any problems to your doctor. Keep your feet clean and dry, especially between the toes. If your feet are dry or cracked use a moisturizing lotion at least daily but never between the toes. See your judicial clerk every three months for foot and nail care. Don't go barefoot. Wear shoes or slippers at all times. Wear comfortable shoes that fit well. Check inside your shoes for foreign objects or rough spots before putting on shoes. Always wear socks. Avoid using anything hot, such as heating pads, hot water bottles, hot tubs, or bath water. Check the temperature of bath water with your elbow not your foot. Take your shoes and socks off at every office visit to remind your doctor to check your feet. Also, never tape a dressing directly to the skin on your legs or feet. Instead, use a self-adherent bandage to avoid injuring the skin on your lower extremities If calluses form they can cause wound ulcers to appear under the callus, must be seen by [employer] every three months to prevent. Maintain controlled blood sugar, if blood sugar is consistently above 200 this can delay wound healing and aggravate neuropathy. - Control your sodium intake as instructed by provider To give your wound the best chance to heal: - Eat three balanced meals daily focusing on the protein - Control your blood sugar. Keep blood sugar less than 200 - Complete your wound care instructions as ordered - Vitamin C 500 mg twice daily - Multiple Vitamin Daily - Drink a protein shake daily - Premiere Clear or Glucerna for Diabetic patients, Nepro for renal patients and premiere for non-renal and non-diabetic patients Report any of the following signs and symptoms of infection to the Wound Center at [phone] or go to the Emergency Department: Fever or chills Increased drainage Green or yellow drainage Foul odor Increased pain Hardness around the wound Redness, warmth or swelling of the surrounding tissue Color change to the wound Evenings / Weekends / Holidays If you call the wound center at the phone number provided above, please leave a detailed message that includes your full name, birthday, and phone number. We are seeing patients during the day, so we will return your call within a 24-48 hr period in the order your call was received. There is not an on-call provider assigned to the wound center. If you have an emergency that needs to be addressed, please go to an Urgent Care or Emergency Room. Thank you for your cooperation and understanding. Due to the cold and flu season approaching us, if you have any symptoms such as a cough, fever, chills, nausea, vomiting, diarrhea, and/or body aches, please call and reschedule your appointment in the Wound Center. PLAN/ORDERS: Follow-up in the Wound Center with Dr Eric DPM in 2 weeks: Friday May 24, 2024 at 10:30 am Continue aggressive nutritional support to assist wound healing, focusing on increasing protein intake, keeping blood sugars stable/controlled Wound care supplies were ordered through [facility], please call monthly for additional supplies at the phone number provided: . Try to start wearing Farrow wraps for compression May consider HBOT again in the future Dr. Berny Reyes DPM/ELLIOT/YESICA documented in this encounter [facility] 05-10-2024 Nurse Note Nursing Documentation Pertinent Medical History: DM2, HTN, venous insufficiency, & heart failure Wound Etiology according to patient: leg swelling & wounds February 2024 Pt had right great toe amputation June 18, 2023 Patient arrived via: Ambulatory with [facility] Care Company/Nursing Facility: N/A Consent captured for debridement per Dr. Alfredo Moore DPM and linda until March 2024 Consent captured for debridement per Dr. Berny Reyes DPM and linda until 2024 Consent captured for debridement per Dr. Hu Pickard DPM and linda until September 2024 Anticoagulant Therapy: ASA 81mg ACTIVE CARE PER PROVIDER: Giovanni HAM, Hu HAM, & Alfredo Moore DPM Wounds 1-30 previously closed WOUND # 34 LOCATION: Right Distal Medial Lower Leg-CLOSED 03/13/24 (February 2024) CLOSED 03/13/24, closed 03/29/24 Application Dates: Grafts are complete 01/07/2023 Apligraf 01/15/2023 Apligraf 01/21/2023 Apligraf 01/27/2023 Apligraf 02/04/2023 Apligraf WOUND # 35 LOCATION: Right Posterior Lower Leg (February 2024) Closed 03/29/24, closed 04/12/24 WOUND ASSESSMENT: Refer to Provider's Wound Assessment Note VASCULAR ASSESSMENT BY PROVIDER: See provider wound assessment note CHF History: Yes as of February 2022, Dr. Sadler in Cardiology EDEMA: Right Foot: trace Right Ankle: trace Right Calf: trace Left Foot: none Left Ankle: trace Left Calf: 1+ Other: N/A MEASUREMENTS: in cm Right Calf: 28.8 Right Ankle: 20.0 Left Calf: 30.5 Left Ankle: 20.5 Length: 43.0 WOUND PHOTOGRAPHY: YES x 3, (last taken 05/10/24) DEBRIDEMENT PROCEDURE BY PROVIDER: Anesthetic Used: 2% lidogel applied by Bonnie Birmingham RN Other procedure: n/a Specimen collected:n/a WOUND TREATMENT PER MD ORDER: Wounds cleansed by mechanical debridement to allow provider to visualize wound base WOUND # 31 LOCATION: Left Anterior Lower Leg (February 2024) L: 1.0 cm x W: 0.5 cm x D: 0.1 cm WOUND # 32 LOCATION: Left Posterior Lower Leg Cluster (February 2024) L: 1.6 cm x W: 1.6 cm x D: 0.1 cm WOUND # 33 LOCATION: Right Medial Lower Leg (February 2024) L: 0.8 cm x W: 0.8 cm x D: 0.1 cm WOUND # 34 LOCATION: Right Posterior Inferior (May 2024) L: 1.3 cm x W: 1.6 m x D: 0.1 cm Cleansed with: Vashe Applied to naya-wound skin: skin prep, vaseline Applied to wound bed: medihoney gel, adaptic, calcium alginate ag Covered and secured with: 4x4 excel sap Other: COMPRESSION: Tubi-tobacco wetter size D followed by patient's own Jobst Farrow wraps SPECIAL NEEDS: Coordination of care N/A Emotional support N/A OR set-up N/A Yarn Examiner N/A Incontinence needs N/A DME company: ordered 03/01/24 (supplies and Farrow wraps) DISCHARGED in stable condition to: ambulatory with cane PLAN/ORDERS: Follow-up in the Wound Center with Dr Eric DPM in 2 weeks: Friday May 24, 2024 at 10:30 am Continue aggressive nutritional support to assist wound healing, focusing on increasing protein intake, keeping blood sugars stable/controlled Wound care supplies were ordered through [employer], please call monthly for additional supplies at the phone number provided: . Try to start wearing Farrow wraps for compression May consider HBOT again in the future EDUCATION: Continuation of current wound care, follow up. The patient/family was instructed how to cleanse the wound(s). Visual demonstration on how to apply the dressing with teach back method. Signs & symptoms of infection were reviewed: Increased redness, swelling, pain, green/yellow drainage, fever and/or chills would all need to be evaluated by a Physician. Patient received typed home-going wound care instructions and has expressed intent to comply. OTHER EDUCATION: Education performed regarding lymphedema/edema: Elevation of extremity above the heart for 30 minutes three times daily and as needed Exercise such as writing the ABC's with your toes in the air, walking and/or calf pumps Wearing compression as ordered by provider Diet controlling of sodium as instructed by provider Use of medication to help control edema. UNIVERSAL PROTOCOL / SAFETY CHECKLIST - Procedure to be Performed sharp debridement of lower leg wounds Sign In: 1014 A Moment of CARE was completed. Personnel directly involved with the procedure wore the appropriate PPE (Personal Protective Equipment). Patient/Surrogate Stated/Verified: 1014 PATIENT VERIFIED(optional for EMERGENT procedures): Patient name, Date of , Relevant allergies, and The intended procedure Time Out Communication: 1040 Intended patient and procedure match the source documents. Consent documented and matches the intended procedure. No relevant labs, photos, and/or imaging studies were applicable for review. Sign Out: 1100 SIGN OUT (optional for EMERGENT procedures): All instruments, equipment, possible retained foreign bodies accounted for. Current HBOT Status: Active or Complete - see screening below WOUND CENTER HYPERBARIC OXYGEN THERAPY SCREENING 1. Is the patient diabetic? (If No, skip to question 5) Yes 2. Does the patient have a lower extremity wound? Yes 3. Is there exposed/involved tendon or bone? 4. Has the wound been present for 30 days? Yes If Yes to ALL questions above, consult the Hyperbaric Center 5. Has the patient been diagnosed with osteomyelitis? No 6. Has the patient had a previous skin graft or flap at the wound? No 7. Has the patient had or been offered vascular intervention/evaluation? No 8. Does the patient have a wound at an amputation site? Yes 9. Has the patient had radiation therapy at the site of the problem? No If Yes to ANY of questions 5-9, consult the Hyperbaric Center [facility] 05-10-2024 Nurse Note Nursing Documentation Pertinent Medical History: DM2, HTN, venous insufficiency, & heart failure Wound Etiology according to patient: leg swelling & wounds February 2024 Pt had right great toe amputation June 18, 2023 Patient arrived via: Ambulatory with [facility] Care Company/Nursing Facility: N/A Consent captured for debridement per Dr. Alfredo Moore DPM and linda until March 2024 Consent captured for debridement per Dr. Berny Reyes DPM and linda until 2024 Consent captured for debridement per Dr. Hu Pickard DPM and linda until September 2024 Anticoagulant Therapy: ASA 81mg ACTIVE CARE PER PROVIDER: Giovanni Bolanos DPM, Hu Pickard DPM, & Alfredo Moore DPM Wounds 1-30 previously closed WOUND # 34 LOCATION: Right Distal Medial Lower Leg-CLOSED 03/13/24 (February 2024) CLOSED 03/13/24, closed 03/29/24 Application Dates: Grafts are complete 01/07/2023 Apligraf 01/15/2023 Apligraf 01/21/2023 Apligraf 01/27/2023 Apligraf 02/04/2023 Apligraf WOUND # 35 LOCATION: Right Posterior Lower Leg (February 2024) Closed 03/29/24, closed 04/12/24 WOUND ASSESSMENT: Refer to Provider's Wound Assessment Note VASCULAR ASSESSMENT BY PROVIDER: See provider wound assessment note CHF History: Yes as of February 2022, Dr. Sadler in Cardiology EDEMA: Right Foot: trace Right Ankle: trace Right Calf: trace Left Foot: none Left Ankle: trace Left Calf: 1+ Other: N/A MEASUREMENTS: in cm Right Calf: 28.8 Right Ankle: 20.0 Left Calf: 30.5 Left Ankle: 20.5 Length: 43.0 WOUND PHOTOGRAPHY: YES x 3, (last taken 05/10/24) DEBRIDEMENT PROCEDURE BY PROVIDER: Anesthetic Used: 2% lidogel applied by Bonnie Birmingham RN Other procedure: n/a Specimen collected:n/a WOUND TREATMENT PER MD ORDER: Wounds cleansed by mechanical debridement to allow provider to visualize wound base WOUND # 31 LOCATION: Left Anterior Lower Leg (February 2024) L: 1.0 cm x W: 0.5 cm x D: 0.1 cm WOUND # 32 LOCATION: Left Posterior Lower Leg Cluster (February 2024) L: 1.6 cm x W: 1.6 cm x D: 0.1 cm WOUND # 33 LOCATION: Right Medial Lower Leg (February 2024) L: 0.8 cm x W: 0.8 cm x D: 0.1 cm WOUND # 34 LOCATION: Right Posterior Inferior (May 2024) L: 1.3 cm x W: 1.6 m x D: 0.1 cm Cleansed with: Vashe Applied to naya-wound skin: skin prep, vaseline Applied to wound bed: medihoney gel, adaptic, calcium alginate ag Covered and secured with: 4x4 excel sap Other: COMPRESSION: Tubi-tobacco wetter size D followed by patient's own Jobst Farrow wraps SPECIAL NEEDS: Coordination of care N/A Emotional support N/A OR set-up N/A Yarn Examiner N/A Incontinence needs N/A [employer] company: ordered 03/01/24 (supplies and Farrow wraps) DISCHARGED in stable condition to: ambulatory with cane PLAN/ORDERS: Follow-up in the Wound Center with Dr Eric DPM in 2 weeks: Friday May 24, 2024 at 10:30 am Continue aggressive nutritional support to assist wound healing, focusing on increasing protein intake, keeping blood sugars stable/controlled Wound care supplies were ordered through [employer], please call monthly for additional supplies at the phone number provided: . Try to start wearing Farrow wraps for compression May consider HBOT again in the future EDUCATION: Continuation of current wound care, follow up. The patient/family was instructed how to cleanse the wound(s). Visual demonstration on how to apply the dressing with teach back method. Signs & symptoms of infection were reviewed: Increased redness, swelling, pain, green/yellow drainage, fever and/or chills would all need to be evaluated by a Physician. Patient received typed home-going wound care instructions and has expressed intent to comply. OTHER EDUCATION: Education performed regarding lymphedema/edema: Elevation of extremity above the heart for 30 minutes three times daily and as needed Exercise such as writing the ABC's with your toes in the air, walking and/or calf pumps Wearing compression as ordered by provider Diet controlling of sodium as instructed by provider Use of medication to help control edema. UNIVERSAL PROTOCOL / SAFETY CHECKLIST - Procedure to be Performed sharp debridement of lower leg wounds Sign In: 1014 A Moment of CARE was completed. Personnel directly involved with the procedure wore the appropriate PPE (Personal Protective Equipment). Patient/Surrogate Stated/Verified: 1014 PATIENT VERIFIED(optional for EMERGENT procedures): Patient name, Date of , Relevant allergies, and The intended procedure Time Out Communication: 1040 Intended patient and procedure match the source documents. Consent documented and matches the intended procedure. No relevant labs, photos, and/or imaging studies were applicable for review. Sign Out: 1100 SIGN OUT (optional for EMERGENT procedures): All instruments, equipment, possible retained foreign bodies accounted for. Current HBOT Status: Active or Complete - see screening below WOUND CENTER HYPERBARIC OXYGEN THERAPY SCREENING 1. Is the patient diabetic? (If No, skip to question 5) Yes 2. Does the patient have a lower extremity wound? Yes 3. Is there exposed/involved tendon or bone? 4. Has the wound been present for 30 days? Yes If Yes to ALL questions above, consult the Hyperbaric Center 5. Has the patient been diagnosed with osteomyelitis? No 6. Has the patient had a previous skin graft or flap at the wound? No 7. Has the patient had or been offered vascular intervention/evaluation? No 8. Does the patient have a wound at an amputation site? Yes 9. Has the patient had radiation therapy at the site of the problem? No If Yes to ANY of questions 5-9, consult the Hyperbaric Center documented in this encounter [facility] 05-09-2024 Note HNO ID: [id number] Author: JIMENA DUNHAM MA Service: ? Author Type: Linen Tech Type: Progress Notes Filed: 05/09/2024 13:48 Note Text: Anxiety Screening Never done Colorectal Cancer Screening Never done RSV Vaccine(1 - 1-dose 60+ series) Never done Mammogram Screening due on 09/15/2023 Covid-19 Vaccine( season) Never done Influenza Vaccine(1) due on 05/07/2024 Last 3 Encounter BP Readings: Date: BP: 04/26/2024 138/68 04/26/2024 133/65 04/17/2024 142/67 LDL Cholesterol Date Value 07/27/2023 103 mg/dL 08/15/2022 117 mg/dL 09/19/2021 102 LDL (no units) Date Value 02/05/2020 106 HBA1C: Hemoglobin A1C (%) Date Value 03/13/2024 9.8 10/07/2023 8.3 08/09/2023 9.1 09/19/2021 10.3 02/04/2021 11.1 Hemoglobin A1c (%) Date Value 08/11/2013 7.0 05/03/2013 11.1 Hemoglobin A1C (POCT) (%) Date Value 06/14/2023 7.9 03/23/2022 10.1 08/12/2020 10.6 Albumin/Creat Ratio Date Value 07/27/2023 226 mg/g (H) 08/13/2020 118.2 MG/G (A) Protein, Urine (no units) Date Value 03/22/2023 Negative 02/03/2021 Negative Creatinine, Ur Random (UCRR) (mg/dL) Date Value 07/27/2023 145.3 Albumin, Urine (mg/l) Date Value 08/13/2020 20.8 Diabetic Foot and Retinal Eye Exam not Overdue [facility] 05-09-2024 Nurse Note Patient presents with: Nurse Visit: B12 [facility] 05-09-2024 History of Presen t illness Narrative Anxiety Screening Never done Colorectal Cancer Screening Never done RSV Vaccine(1 - 1-dose 60+ series) Never done Mammogram Screening due on 09/15/2023 Covid-19 Vaccine(2022- season) Never done Influenza Vaccine(1) due on 05/07/2024 Last 3 Encounter BP Readings: Date: BP: 04/26/2024 138/68 04/26/2024 133/65 04/17/2024 142/67 LDL Cholesterol Date Value 07/27/2023 103 mg/dL 08/15/2022 117 mg/dL 09/19/2021 102 LDL (no units) Date Value 02/05/2020 106 HBA1C: Hemoglobin A1C (%) Date Value 03/13/2024 9.8 10/07/2023 8.3 08/09/2023 9.1 09/19/2021 10.3 02/04/2021 11.1 Hemoglobin A1c (%) Date Value 08/11/2013 7.0 05/03/2013 11.1 Hemoglobin A1C (POCT) (%) Date Value 06/14/2023 7.9 03/23/2022 10.1 08/12/2020 10.6 Albumin/Creat Ratio Date Value 07/27/2023 226 mg/g (H) 08/13/2020 118.2 MG/G (A) Protein, Urine (no units) Date Value 03/22/2023 Negative 02/03/2021 Negative Creatinine, Ur Random (UCRR) (mg/dL) Date Value 07/27/2023 145.3 Albumin, Urine (mg/l) Date Value 08/13/2020 20.8 Diabetic Foot and Retinal Eye Exam not Overdue documented in this encounter [facility] 05-09-2024 Nurse Note Patient presents with: Nurse Visit: B12 documented in this encounter [facility] 05-04-2024 Telephone encounter Note Type of letter/form/fax request - Physical Therapy Orders Form received from [facility] on 04/25/24 floor and placed on MD desk () for completion. Completed form needs to be faxed to [phone]. Route to [place] when form completed for processing [facility] 05-04-2024 Miscellaneous Notes Type of letter/form/fax request - Physical Therapy Orders Form received from [facility] on 04/25/24 floor and placed on MD desk () for completion. Completed form needs to be faxed to [phone]. Route to [place] when form completed for processing documented in this encounter [facility] 04-28-2024 Note [facility] 04-28-2024 History of Presen t illness Narrative Problem list reviewed. CHIEF COMPLAINT: check B/L lower leg wounds DM II A1c 8.3 (10/07/23) DLS 02/08/24 HISTORY OF PRESENT ILLNESS: Patient last seen 04/12/24. wounds are smaller today and less drainage. Here today for B/L lower leg wound check. no new wounds noted. Denies N/V/F/C/D/SOB/CP/LP. She relates she can't feel feet well due to neuropathy. She has numbness and toe amputations. Referred by Dr. Dasilva. 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 Right 2nd toe amputation and hallux I&D 10/28/22. Hx s/p RT toe amp 3,4,5 (DOS 10/14/23) DME DM inserts 08/24/23 rx circade wraps 08/14/22 CURRENT MEDICATIONS: Percocet Oral Tablet 5-325 MG (10/27/2023) Take 1 tablet every 6 hours as needed for 4 day(s) Clindamycin HCl Oral Capsule 300 MG (11/26/2022) TAKE 1 CAPSULE BY MOUTH EVERY 8 HOURS FOR 7 DAYS. oxyCODONE-Acetaminophen Oral Tablet 5-325 MG (10/28/2022) Ketorolac Tromethamine Ophthalmic Solution 0.5 % (04/26/2023) Accu-Chek Jose Plus In Vitro Strip (09/23/2022) Sulfamethoxazole-Trimethoprim Oral Tablet 800-160 MG (06/24/2023) Atorvastatin Calcium Oral Tablet 80 MG (06/13/2023) miSOPROStol Oral Tablet 200 MCG (06/15/2023) TAKE 2 TABLETS BY MOUTH THE DAY PRIOR TO PROCEDURE AT BEDTIME WITH FOOD Fluticasone Propionate Nasal Suspension 50 MCG/ACT (12/15/2022) USE 2 SPRAYS IN EACH NOSTRIL DAILY X1 WEEK,THEN 1 SPRAY IN EACH NOSTRIL DAILY THEREAFTER NEEDED Nitrofurantoin Monohyd Macro Oral Capsule 100 MG (02/08/2023) Cephalexin Oral Capsule 500 MG (09/26/2022) Doxycycline Hyclate Oral Capsule 100 MG (11/10/2022) Fluconazole Oral Tablet 200 MG (03/20/2024) TAKE 1 TABLET EVERY DAY FOR 21 DAYS Bactrim DS Oral Tablet 800-160 MG (06/24/2023) Take 1 tablet twice a day for 10 day(s) Cipro Oral Tablet 500 MG (06/11/2023) Take 1 tablet twice a day for 7 day(s) Doxycycline Hyclate Oral Tablet 100 MG (06/08/2023) Take 1 tablet twice a day for 7 day(s) Ciprofloxacin HCl Oral Tablet 500 MG (11/10/2022) Take 1 tablet twice a day for 7 day(s) Cephalexin Oral Tablet 500 MG (10/23/2022) Take 1 tablet three times a day for 7 day(s) Ofloxacin Ophthalmic Solution 0.3 % (03/30/2023) diazePAM Oral Tablet 10 MG (02/19/2022) TAKE 1 TABLET 60 MIN BEFORE TEST Atorvastatin Calcium Oral Tablet 40 MG (11/18/2022) FLUoxetine HCl Oral Capsule 40 MG (01/26/2022) Enalapril Maleate Oral Tablet 10 MG (01/26/2022) TAKE 1 TABLET BY MOUTH EVERY DAY Erythromycin Ophthalmic Ointment 5 MG/GM (02/09/2022) APPLY 1 A SMALL AMOUNT LEFT EYE 4 TIMES A DAY Atorvastatin Calcium Oral Tablet 20 MG (01/26/2022) TAKE 1 TABLET BY MOUTH EVERY DAY Spironolactone Oral Tablet 25 MG (06/15/2023) TAKE 0.5 TABLETS BY MOUTH ONCE DAILY. Jardiance Oral Tablet 25 MG (06/14/2023) TAKE 1 TABLET BY MOUTH EVERY DAY WITH BREAKFAST Furosemide Oral Tablet 40 MG (11/18/2022) HumuLIN R U-500 KwikPen Subcutaneous Solution Pen-injector 500 UNIT/ML (06/14/2023) INJECT 40 UNITS SUBCUTANEOUSLY AT BREAKFAST, 100 UNITS AT LUNCH, 80 UNITS AT SUPPER. metFORMIN HCl Oral Tablet 1000 MG (11/23/2022) TAKE 1 TABLET BY MOUTH TWICE DAILY WITH MEALS. E11.3599 ALLERGIES: Band-Aid [place] Surg Dressing Other Bandaging Tape Other PAST MEDICAL HISTORY: Podiatry History remarkable for Foot Numbness, Fungal Nails, Leg or Foot Ulcers. The patient has a past medical history of Arthritis, Depression, DM-Medication Dependent, Poor Circulation. Neuropathy High Cholesterol SURGICAL HISTORY: Hand Tonsils HOSPITALIZATIONS: None Noted SOCIAL HISTORY: Smoking Status: Never smoker; Last Reviewed: 12/08/2023 Alcohol use: social drinker No drug use Social History Reviewed (01/16/2021 11:20:18 AM EST) FAMILY HISTORY: There is a family history of Denial of any knowledge of significant family history. Denial of any knowledge of significant family history Family History Reviewed (01/16/2021 11:20:19 AM EST) REVIEW OF SYSTEMS: Psychologic: Admits to No psych symptoms. Review of systems otherwise negative PHYSICAL EXAMINATION: Vital Signs: Weight 235 lbs; Height 5 ft 8 in; BMI 35.7 04/25/2024 2:38 PM (EST) Temperature 98.6 F; Pulse Rate 100 bpm; Blood Pressure 120 / 80 mm/Hg Vascular Exam: BL Foot DP / PT pulses +2/4. 2+ edema B/L LE CFT less than 3 seconds to digits LEFT, skin temp warm to warm from proximal to distal BL Foot Dermatologic Exam: LT medial lower leg wound healed LT anterior lower leg wound predebridement measures 1x0.6x0.1cm and post debridement measures 1.1x0.7x0.1cm with 60:40 granular fibrotic base, surrounding slough, no erythema, no purulence, no probe to bone, no malodor, MOD serous drainage. Into level of SUBCUTANEOUS TISSUE LT posterior lower leg cluster wound predebridement measures 2.5x1.9x0.1cm and post debridement measures 2.6x1.9x0.1cm with 70:30 granular fibrotic base post, surrounding slough, no erythema, no purulence, no probe to bone, no malodor, MOD serous drainage. Into level of SUBCUTANEOUS TISSUE RT medial lower leg cluster wound measures 0.9x0.7x0.1cm and post debridement measures 1x0.8x0.1cm with 80:20 granular fibrotic base, surrounding slough, no erythema, no purulence, no probe to bone, no malodor, MOD serous drainage. Into level of SUBCUTANEOUS TISSUE RT distal medial lower leg wound healed RT posterior lower leg wound closed LEFT foot 2nd toe tuft hyperkeratotic tissue Nails 1-5 left are thickened, elongated and discolored with subungual debris. The nails are greater than .3mm in thickness. The discoloration is yellowish in color. Innerspaces 1-4 LT are clean dry and intact. Skin texture and turgor are decreased. absent or decreased hair growth bilateral. chronic lower leg red hyperpigmentation Neurologic Exam: Comments/Other Findings: Vibratory sensations decreased LT, Protective sensations absent LT tested with 5.07 monofilament, and light, sharp, and temperature sensations intact LT. Normal Babinski test noted bl foot after testing Orthopedic Exam: Additional Orthopedic Findings: RT foot toe amputations 1,2,3,4,5 LEFT 2nd hammertoe contracture semi- rigid DIAGNOSIS: Type II diabetes mellitus with neurological manifestations Lymphedema of both lower extremities PVD (peripheral vascular disease) History of amputation of right great toe Amputated toe of right foot Hammertoe of right foot Personal history of diabetic foot ulcer Callus Diabetic ulcer of toe of left foot associated with type 2 diabetes mellitus, limited to breakdown of skin Swelling of right lower extremity Surgical wound dehiscence Onychomycosis Skin ulcer of left great toe, limited to breakdown of skin Venous ulcer of left lower extremity without varicose veins Ulcer of left lower extremity, limited to breakdown of skin Venous ulcer of right lower extremity without varicose veins Ulcer of right lower extremity, limited to breakdown of skin PLAN AND TREATMENT: ASSESMENT & PLAN BL Foot and Ankle and Lower extremity Exam and Evaluation carried out with a treatment plan reviewed with the patient and findings discussed with patient including alternatives, benefits, complications and risks TESTS / IMAGING / X-RAY EXAM 12/22/21 PVR RESULTS: RIGHT SIDE Resting right ankle brachial index: 1.37Right toe brachial index: 0.70Normal ankle brachial index at rest in the right leg. Normal toe brachial index at rest in the right leg. Right ankle: Normal at rest. LEFT SIDE Resting left ankle brachial index: 1.33Left toe brachial index: 0.83Normal ankle brachial index at rest in the left leg. Normal toe brachial index at rest in the left leg. Left ankle: Normal at rest. PREVIOUS right foot XR: There was noted to be normal joint spaces unless noted. No fractures or dislocations noted. No soft tissue emphysema noted. No osteopenia or sclerosis noted. tibial and fibular sesamoid excised, there is small calcified piece of fibular sesamoid bone noted to plantar lateral 1st met. RT foot amp at MTPJ 1,2,3,4,5. no lytic lesions. no soft tissue gas noted. No new B/L LE wounds LT anterior lower leg smaller and RT medial lowre leg and LT posterior lower leg stable LT anterior lower leg, LT posterior lower extremity cluster, and RT medial lower extremity noted in exam were treated with sharp excisional debridement carried out of the wound with non selective sharp excisional debridement past the dermis into SUBCUTANEOUS level with use of curette and 15 scalpel blade. Devitalized tissue removed. We then flushed out the wound with wound wash sterile saline. Area numbed with lidocaine gel if sensate prior. see phys exam Discussed importance in offloading, proper nutrition including blood sugar control and getting enough protein and vitamins, infection prevention, proper wound care in wound healing. Also discussed detrimental impact of smoking on healing. Reviewed proper wound care with patient. To not soak wound but to clean appropriately. To watch for signs of infection both local and systemic. These were reviewed with the patient. If seen to contact office or go to ED. To continue wound care consisting of washing the wound with betadine and apply adaptic, alginate, excel SAP. circade or farrow wraps. change every day pad and protect area well ok to shower but pat dry after showering and do wound care she can wear normal tennis shoe we discussed that her wounds are from her high a1c. she has history of this when she loses control of blood sugar. instructed no local signs of infection Previously Rx Farrow wraps 30-40mmHg for compression Previously Rx PVR. has not had one since 2021. was normal at that time. Has new one scheduled for tomorrow New PVR B/L LE reviewed with patient. cont work with PCP for swelling control nutritional consultation was recommended. we went over proper diet and protein intake. 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 more mild disease to left lower leg from knee to calf.consider sending to vascular but should have adquate inflow to her lower leg PVR as below see back in 2 weeks at wound care center for B/L lower leg wounds Non-Invasive Vascular Laboratory [facility] Lower Extremity Arterial Physiology Study Bilateral/Complete Date of service/time: 04/05/2024 10:56:20 AM Name: MS. SHADE BRAMBILA Date of : 1960 Age: 63 years Gender: F Clinical Indication Leg/foot ulceration. TECHNIQUE -------- An arterial physiological examination was performed, including measurement of blood pressures using continuous wave Doppler and recording of plethysmographic with or without Doppler waveforms at the below-mentioned limb segments. FINDINGS -------- RIGHT SIDE AT REST Right Doppler Waveforms Dorsalis pedis: Multiphasic. Post tibial: Multiphasic. Right Pressures Brachial: 154 mmHg High thigh: greater than 255 mmHg Non-compressible arteries. Low thigh: greater than 255 mmHg Non-compressible arteries. Calf: greater than 255 mmHg Non-compressible arteries. Ankle dorsalis pedis: 146 mmHg MANJEET: 0.95 Ankle posterior tibial: 197 mmHg MANJEET: 1.28 Digit: Transmetatarsal amputation. Right PVR Waveforms High thigh: Normal. Low thigh: Normal. Calf: Normal. Ankle: Normal. Transmetatarsal: Normal. Digit: Transmetatarsal amputation. LEFT SIDE AT REST Left Doppler Waveforms Dorsalis pedis: Multiphasic. Post tibial: Multiphasic. Left Pressures Brachial: 153 mmHg High thigh: greater than 255 mmHg Non-compressible arteries. Low thigh: greater than 255 mmHg Non-compressible arteries. Calf: 218 mmHg Partially non-compressible arteries. Ankle dorsalis pedis: 138 mmHg MANJEET: 0.90 Ankle posterior tibial: 108 mmHg MANJEET: 0.70 Digit: 98 mmHg Left PVR Waveforms High thigh: Normal. Low thigh: Normal. Calf: Normal. Ankle: Mildly dampened. Transmetatarsal: Moderately dampened. Digit: Moderately dampened. Type II diabetes mellitus with neurological manifestations 250.60 E11.49 Diagnosis Notes Drag & Drop to change diagnosis order Lymphedema of both lower extremities 457.1 I89.0 Diagnosis Notes Drag & Drop to change diagnosis order PVD (peripheral vascular disease) 443.9 I73.9 Diagnosis Notes Drag & Drop to change diagnosis order History of amputation of right great toe V49.71 Z89.411 Diagnosis Notes Drag & Drop to change diagnosis order Amputated toe of right foot 895.0 S98.131A Diagnosis Notes Drag & Drop to change diagnosis order Hammertoe of right foot 735.4 M20.41 Diagnosis Notes Drag & Drop to change diagnosis order Personal history of diabetic foot ulcer V12.29 Z86.31 Diagnosis Notes Drag & Drop to change diagnosis order Callus 700 L84 Diagnosis Notes Drag & Drop to change diagnosis order Diabetic ulcer of toe of left foot associated with type 2 diabetes mellitus, limited to breakdown of skin 250.80 E11.621 Diagnosis Notes Drag & Drop to change diagnosis order Swelling of right lower extremity 729.81 M79.89 Diagnosis Notes Drag & Drop to change diagnosis order Surgical wound dehiscence 998.32 T81.31XA Diagnosis Notes Drag & Drop to change diagnosis order Onychomycosis 110.1 B35.1 Diagnosis Notes Drag & Drop to change diagnosis order Skin ulcer of left great toe, limited to breakdown of skin 707.15 L97.521 Diagnosis Notes Drag & Drop to change diagnosis order Venous ulcer of left lower extremity without varicose veins 459.81 I87.2 Diagnosis Notes Drag & Drop to change diagnosis order Ulcer of left lower extremity, limited to breakdown of skin 707.10 L97.921 Diagnosis Notes Drag & Drop to change diagnosis order Venous ulcer of right lower extremity without varicose veins 459.81 I87.2 Diagnosis Notes Drag & Drop to change diagnosis order Ulcer of right lower extremity, limited to breakdown of skin 707.10 L97.911 documented in this encounter [facility] 04-26-2024 Instructions Hamlet Garay MD - 04/26/2024 1:58 PM EDT Overactive bladder plan: Limit fluids before bedtime (2-3 hours) Elevate legs before bedtime (1-2 hours) Use CPAP every night Focus on good glucose/sugar control Go to physical therapy Replens vaginal moisturizer documented in this encounter [facility] 04-26-2024 History of Presen t illness Narrative Female Pelvic Medicine & Reconstructive Surgery Consult CHIEF COMPLAINT: Shade Brambila is a 63 year old G0 referred for consultation regarding urinary incontinence. She has had a hysterectomy. HISTORY OF PRESENT ILLNESS: S/P operations on 08/19/[address] Alfredo Ureña Robotic assisted total laparoscopic hysterectomy Bilateral salpingo-oophorectomy [place] lymph node mapping Cystoscopy Path: FIGO grade 1 EAC of uterus She did not need adjuvant therapy. Patient had hyperbaric treatments for wound on LLE. Afterwards she noticed urgency and urge incontinence. She denies prolapse symptoms for at least months. She has not tried a pessary. She denies PAO with coughing, laughing, and sneezing. She reports UUI, mainly at night She does have symptoms of urinary urgency and frequency. She does feel that she empties her bladder completely. She has not tried overactive bladder medications. Daytime frequency: 5 Nocturia: 3+ Fluid intake: 0 cups of coffee, and 16oz of water daily. She drinks a 2 liter of diet pop daily. Drinks continuously throughout the day up until she goes to bed. She reports a history of UTIs- once last January. Today she denies any dysuria or hematuria. She denies constipation, reports normal bowel movements. She denies fecal incontinence of gas/stool. She does not take fiber supplements to help with her constipation. She has difficulty cleaning afterwards. She denies vaginal dryness. She does not use vaginal estrogen. She is not sexually active. She denies a strong family history of breast and ovarian cancer. 1 paternal aunt with breast cancer. 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 Most recent HgbA1c 9.3. Hx of digit amputation on the right foot. PFDI-20 Do you: Usually experience pressure in the lower abdomen? No (0) Usually experience heaviness or dullness in the pelvic area? No (0) Usually have a bulge or something falling out that you can see or feel in your vaginal area? No (0) Ever have to push on the vagina or around the rectum to have or complete a bowel movement? Yes, quite a bit bothersome (4) Usually experience a feeling of incomplete bladder emptying? No (0) Ever have to push up on a bulge in the vaginal area with your fingers to start or complete urination? No (0) Feel you need to strain too hard to have a bowel movement? No (0) Feel you have not completely emptied your bowels at the end of a bowel movement? Yes, quite a bit bothersome (4) Usually lose stool beyond your control if your stool is well formed? No (0) Usually lose stool beyond your control if your stool is loose? No (0) Usually lose gas from the rectum beyond your control? Yes, quite a bit bothersome (4) Usually have pain when you pass your stool? No (0) Experience a strong sense of urgency and have to dhillon to the bathroom to have a bowel movement? No (0) Does part of your bowel ever pass through the rectum and bulge outside during or after a bowel movement? No (0) Usually experience frequent urination? Yes, moderately bothersome (3) Usually experience urine leakage associated with a feeling of urgency, that is, a strong sensation of needing to go to the bathroom? Yes, quite a bit bothersome (4) Usually experience urine leakage related to coughing, sneezing or laughing? No (0) Usually experience small amounts of urine leakage (that is, drops)? No (0) Usually experience difficulty emptying your bladder? No (0) Usually experience pain or discomfort in the lower abdomen or genital region? No (0) PAST MEDICAL HISTORY 05/2013: Charcot left foot due to diabetes mellitus (HCC) Comment: subsequent to left foot fracture 06/14/2023: Chronic ulcer of great toe of right foot (HCC) No date: Congestive heart failure (HCC) No date: Depression No date: Diabetes ([facility]) 02/06/2020: Diabetic ulcer of posterior right heel (HCC) No date: Endometrial cancer ([facility]) 05/2013: Foot fracture, left Comment: Charcot neuroarthropathy No date: HTN (hypertension) No date: Obesity No date: NELLY (obstructive sleep apnea) No date: Renal disorder Comment: on vasotec to protect kidneys rt diabetes since 1998. 01/05/2017: Vitamin D deficiency PAST SURGICAL HISTORY 07/2022: AMPUTATION TOE,MT-P JT; Right Comment: Hallux 10/2023: AMPUTATION TOE,MT-P JT; Right Comment: removal of remaining right toes No date: DILATION & CURETTAGE DX&/THER NONOBSTETRIC Comment: x3 No date: EXTENSIVE HAND SURGERY Comment: Dupuytren contracture No date: TONSILLECTOMY HX 08/2023: TOTAL ABDOM HYSTERECTOMY Comment: with BSO FAMILY HISTORY Problem Relation Age of Onset Hypertension Mother other (polycystic kidney disease) Mother Heart Father CHF Hypertension Father Diabetes Brother other (testicular cancer) Brother Coronary Artery Disease Brother MD and at age 45 other (CHF) Paternal Grandmother Cancer Paternal Aunt breast CA Current Outpatient Medications Medication Sig Dispense Refill metFORMIN (GLUCOPHAGE) 1,000 mg tablet Take 1 tablet by mouth daily with lunch. 90 tablet 3 insulin regular human, CONCENTRATED 500 UNIT/ML, (HUMULIN R) 500 unit/mL (3 mL) inpn 40 units sc at breakfast, 100 units at lunch, 70 units at supper. 42 mL 3 honey (MEDIHONEY) 100 % pste Apply thin layer of medihoney to bilateral lower leg wounds. Change daily. Patient should start on March 31, 2024. 44 mL 2 ACCU-CHEK JOSE PLUS TEST STRP test strip USE TO TEST BLOOD GLUCOSE 3 TIMES DAILY 300 Strip 1 enalapril (VASOTEC) 20 mg tablet Take 0.5 tablets by mouth two times a day. atorvastatin (LIPITOR) 80 mg tablet take 1 tablet by mouth every day 90 tablet 3 furosemide (LASIX) 20 mg tablet Take 20 mg by mouth once daily. take 20mg as needed for swelling ascorbic acid (VITAMIN C ORAL) Take by mouth. aspirin, enteric coated (ASPIRIN, ENTERIC COATED) 81 mg EC tablet Take 81 mg by mouth once daily. fluticasone (FLONASE) 50 mcg/actuation nasal spray Use 2 Sprays in each nostril once daily. (Patient taking differently: Use 2 Sprays in each nostril as needed.) 1 Each 3 cyanocobalamin, vitamin B-12, 1,000 mcg/mL kit 1,000 mcg by INJECTION(UNSPECIFIED PARENTERAL ROUTES) route once every month. JARDIANCE 25 mg tablet take 1 tablet by mouth every day with breakfast (Patient taking differently: Take 25 mg by mouth daily with lunch.) 90 tablet 3 CPAP/BIPAP/OTHER New set up: Settings 5 - 15 cm H2O, suitable mask per pt preference, chin strap, head gear, humidity, tubing, lifetime supplies. G47.33 NELLY 1 Each 0 Blood Pressure Monitor Please monitor blood pressure 1-2 hours after taking morning medications. 1 Kit 0 Zinc 50 mg tab Take 50 mg by mouth once daily. multivit,thx,calcium,iron,mins (MULTIVITAMIN AND MINERAL ORAL) Take 1 tablet by mouth once daily. ibuprofen (ADVIL ORAL) Take 3 tablets by mouth as needed. FLUoxetine (PROZAC) 40 mg capsule Take by mouth q 24 HR. lancets (ONE TOUCH DELBruin Biometrics) 33 gauge USE TO BLOOD GLUCOSE 3 TIMES DAILY. INSULIN DEPENDENT E11.3299, E11.65, Z79.4 300 Each 3 insulin needles, DISPOSABLE, (BD INSULIN PEN NEEDLE UF) 31 gauge x 5/16 FOUR DAILY FOR INSULIN INJECTIONS. 400 Each 1 Blood-Glucose Meter misc Use to test blood glucose 3 times daily. Insulin Dependent E11.3299, E11.65, Z79.4 1 Each 0 Cholecalciferol, Vitamin D3, 50 mcg (2,000 unit) cap Take 1 tablet by mouth once daily. Current Facility-Administered Medications Medication Dose Route Frequency Provider Last Rate Last Admin cyanocobalamin 1,000 mcg injection 1,000 mcg INTRAMUSCULAR q 4 WEEKS Eldon Gill DO 1,000 mcg at 04/06/24 1351 ALLERGIES Allergen Reactions Amoxicillin Unknown Patient does not remember reaction Codeine Intolerance Patient states Makes her Hyper Morphine Intolerance Difficulty waking up / groggy Social History Tobacco Use Smoking status: Never Passive exposure: Never Smokeless tobacco: Never Vaping Use Vaping status: Never Used Substance Use Topics Alcohol use: Yes Comment: Occ - 3 glasses of wine a year Drug use: No REVIEW OF SYSTEMS ENT: negative for findings Respiratory: negative for findings Cardiovascular: negative Gastrointestinal: negative Genitourinary: negative Musculoskeletal: back pain, joint pain Neurologic: new headaches Psychiatric: negative Endocrine: cold intolerance, heat intolerance Integumentary: negative for findings I have confirmed and edited as necessary, the PFSH and ROS obtained by others. Hamlet Garay MD OBJECTIVE: Physical Exam BP 133/65 Pulse 76 Wt 102.1 kg (225 lb) BMI 34.22 kg/m General Appearance: Well-appearing, no acute distress Psychiatric: Alert and oriented, normal affect Neck: Deferred Skin: No rashes or lesions Lymph: Deferred C/V: Normal peripheral perfusion Lungs: Respiratory effort normal Abdomen: Soft, non-tender, non-distended Pelvic examination: Vulva/Perineum: Normal development, normal hair distribution, normal anus. Erythematous skin Urethral Meatus:Normal location and size, no lesions Urethra: No masses, tenderness or scarring Bladder: No masses, no tenderness Vagina: Atrophy noted Cervix: Surgically absent Uterus: Surgically absent Perineal Sensation: Normal Levator tone: decreased Levator tenderness: Absent NEG EBCST POP-Q: Prolapse Noted: Yes Aa = -3.0 Ba = -3.0 C = -6.0 gh = 2.5 pb = 2.5 tvl = 7.0 Ap = -3.0 Bp = -3.0 UA results: N/A pt voided just prior to appt US PVR: 44 cc performed by nurse Physical exam chaperoned by Dr. Johnson. IMPRESSION & PLAN: Shade Brambila is a 63 year old female with multiple comorbidities including T2DM, HTN, CHF, NELLY presenting for urge incontinence. Urge incontinence - Educated on urge incontinence - Discussed lifestyle modifications, stop drinking after 8 pm, reduce soda intake - Elevate legs in the evenings to increase blood flow prior to sleep - Encouraged CPAP use- patient has at home but is not using. Educated on connection between improved NELLY and incontinence - Pelvic floor PT referral - Follow up in 3 months 2. Vaginitis - emmy, BV swabs collected - likely emmy infection, will treat based on results - also recommend Replens vaginal moisturizer; must avoid estrogen given h/o uterine cancer Hamlet Garay MD I spent a total of 45 minutes on the date of the service which included preparing to see the patient, [id number] patient care, completing clinical documentation, obtaining and/or reviewing separately obtained history, performing a medically appropriate examination, counseling and educating the patient/family/caregiver, ordering medications, tests, or procedures, and independently interpreting results (not separately reported). Consultation requested by Dr. Darnell for an opinion regarding incontinence. My final recommendations will be communicated back to the requesting physician by way of shared Medical record or letter to requesting physician via US mail. documented in this encounter [facility] 04-26-2024 Note HNO ID: [id number] Author: HAMLET GARAY MD Service: ? Author Type: Physician Type: Progress Notes Filed: 04/26/2024 15:31 Note Text: Female Pelvic Medicine AND Reconstructive Surgery Consult CHIEF COMPLAINT: Shade Brambila is a 63 year old G0 referred for consultation regarding urinary incontinence. She has had a hysterectomy. HISTORY OF PRESENT ILLNESS: S/P operations on 08/19/[address] Alfredo Ureña Robotic assisted total laparoscopic hysterectomy Bilateral salpingo-oophorectomy [place] lymph node mapping Cystoscopy Path: FIGO grade 1 EAC of uterus She did not need adjuvant therapy. Patient had hyperbaric treatments for wound on LLE. Afterwards she noticed urgency and urge incontinence. She denies prolapse symptoms for at least months. She has not tried a pessary. She denies PAO with coughing, laughing, and sneezing. She reports UUI, mainly at night She does have symptoms of urinary urgency and frequency. She does feel that she empties her bladder completely. She has not tried overactive bladder medications. Daytime frequency: 5 Nocturia: 3+ Fluid intake: 0 cups of coffee, and 16oz of water daily. She drinks a 2 liter of diet pop daily. Drinks continuously throughout the day up until she goes to bed. She reports a history of UTIs- once last January. Today she denies any dysuria or hematuria. She denies constipation, reports normal bowel movements. She denies fecal incontinence of gas/stool. She does not take fiber supplements to help with her constipation. She has difficulty cleaning afterwards. She denies vaginal dryness. She does not use vaginal estrogen. She is not sexually active. She denies a strong family history of breast and ovarian cancer. 1 paternal aunt with breast cancer. 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 Most recent HgbA1c 9.3. Hx of digit amputation on the right foot. PFDI-20 Do you: Usually experience pressure in the lower abdomen? No (0) Usually experience heaviness or dullness in the pelvic area? No (0) Usually have a bulge or something falling out that you can see or feel in your vaginal area? No (0) Ever have to push on the vagina or around the rectum to have or complete a bowel movement? Yes, quite a bit bothersome (4) Usually experience a feeling of incomplete bladder emptying? No (0) Ever have to push up on a bulge in the vaginal area with your fingers to start or complete urination? No (0) Feel you need to strain too hard to have a bowel movement? No (0) Feel you have not completely emptied your bowels at the end of a bowel movement? Yes, quite a bit bothersome (4) Usually lose stool beyond your control if your stool is well formed? No (0) Usually lose stool beyond your control if your stool is loose? No (0) Usually lose gas from the rectum beyond your control? Yes, quite a bit bothersome (4) Usually have pain when you pass your stool? No (0) Experience a strong sense of urgency and have to dhillon to the bathroom to have a bowel movement? No (0) Does part of your bowel ever pass through the rectum and bulge outside during or after a bowel movement? No (0) Usually experience frequent urination? Yes, moderately bothersome (3) Usually experience urine leakage associated with a feeling of urgency, that is, a strong sensation of needing to go to the bathroom? Yes, quite a bit bothersome (4) Usually experience urine leakage related to coughing, sneezing or laughing? No (0) Usually experience small amounts of urine leakage (that is, drops)? No (0) Usually experience difficulty emptying your bladder? No (0) Usually experience pain or discomfort in the lower abdomen or genital region? No (0) PAST MEDICAL HISTORY 05/2013: Charcot left foot due to diabetes mellitus ([facility]) Comment: subsequent to left foot fracture 06/14/2023: Chronic ulcer of great toe of right foot ([facility]) No date: Congestive heart failure (HCC) No date: Depression No date: Diabetes ([facility]) 02/06/2020: Diabetic ulcer of posterior right heel ([facility]) No date: Endometrial cancer ([facility]) 05/2013: Foot fracture, left Comment: Charcot neuroarthropathy No date: HTN (hypertension) No date: Obesity No date: NELLY (obstructive sleep apnea) No date: Renal disorder Comment: on vasotec to protect kidneys rt diabetes since 1998. 01/05/2017: Vitamin D deficiency PAST SURGICAL HISTORY 07/2022: AMPUTATION TOE,MT-P JT; Right Comment: Hallux 10/2023: AMPUTATION TOE,MT-P JT; Right Comment: removal of remaining right toes No date: DILATION AND CURETTAGE DXAND/THER NONOBSTETRIC Comment: x3 No date: EXTENSIVE HAND SURGERY Comment: Dupuytren contracture No date: TONSILLECTOMY HX (more content not included)... [facility] 04-26-2024 Nurse Note Nursing Documentation Pertinent Medical History: DM2, HTN, venous insufficiency, & heart failure Wound Etiology according to patient: leg swelling & wounds February 2024 Pt had right great toe amputation June 18, 2023 Patient arrived via: Ambulatory with [facility]/Nursing Facility: N/A Consent captured for debridement per Dr. Alfredo Moore DPM and linda until March 2024 Consent captured for debridement per Dr. Berny Reyes DPM and linda until 2024 Consent captured for debridement per Dr. Hu Pickard DPM and linda until September 2024 Anticoagulant Therapy: ASA 81mg ACTIVE CARE PER PROVIDER: Giovanni Bolanos DPM, Hu Pickard DPM, & Alfredo Moore DPM Wounds 1-30 previously closed WOUND # 34 LOCATION: Right Distal Medial Lower Leg-CLOSED 03/13/24 (February 2024) CLOSED 03/13/24, closed 03/29/24 Application Dates: Grafts are complete 01/07/2023 Apligraf 01/15/2023 Apligraf 01/21/2023 Apligraf 01/27/2023 Apligraf 02/04/2023 Apligraf WOUND # 35 LOCATION: Right Posterior Lower Leg (February 2024) Closed 03/29/24, closed 04/12/24 WOUND ASSESSMENT: Refer to Provider's Wound Assessment Note VASCULAR ASSESSMENT BY PROVIDER: See provider wound assessment note CHF History: Yes as of February 2022, Dr. Sadler in Cardiology EDEMA: Right Foot: none Right Ankle: 2+ Right Calf: none Left Foot: none Left Ankle: 2+ Left Calf: none Other: N/A MEASUREMENTS: in cm Right Calf: 31.1 Right Ankle: 20.3 Left Calf: 30.2 Left Ankle: 20.8 Length: 43.0 WOUND PHOTOGRAPHY: No, (last taken 04/12/24) DEBRIDEMENT PROCEDURE BY PROVIDER: Anesthetic Used: 2% lidogel applied by Leanna Triplett RN Other procedure: n/a Specimen collected:n/a WOUND TREATMENT PER MD ORDER: Wounds cleansed by mechanical debridement to allow provider to visualize wound base WOUND # 31 LOCATION: Left Anterior Lower Leg (February 2024) L: 1.1 cm x W: 0.7 cm x D: 0.1 cm WOUND # 32 LOCATION: Left Posterior Lower Leg Cluster (February 2024) L: 2.6 cm x W: 1.9 cm x D: 0.1 cm WOUND # 33 LOCATION: Right Medial Lower Leg-CLUSTER (February 2024) L: 1.0 cm x W: 0.8 cm x D: 0.1 cm Cleansed with: Vashe Applied to naya-wound skin: skin prep, vaseline Applied to wound bed: medihoney gel, Adaptic, Calcium Alginate Ag Covered and secured with: 4x4 [place] [employer] Other: COMPRESSION: Patient own Jobst Farrow wraps SPECIAL NEEDS: Coordination of care N/A Emotional support N/A OR set-up N/A 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 Continue aggressive nutritional support to assist wound healing, focusing on increasing protein intake. Wound care supplies were ordered through [facility], please call monthly for additional supplies at the phone number provided: . EDUCATION: Continuation of current wound care, follow up. The patient/family was instructed how to cleanse the wound(s). Visual demonstration on how to apply the dressing with teach back method. Signs & symptoms of infection were reviewed: Increased redness, swelling, pain, green/yellow drainage, fever and/or chills would all need to be evaluated by a Physician. Patient received typed home-going wound care instructions and has expressed intent to comply. OTHER EDUCATION: Education performed regarding lymphedema/edema: Elevation of extremity above the heart for 30 minutes three times daily and as needed Exercise such as writing the ABC's with your toes in the air, walking and/or calf pumps Wearing compression as ordered by provider Diet controlling of sodium as instructed by provider Use of medication to help control edema. UNIVERSAL PROTOCOL / SAFETY CHECKLIST - Procedure to be Performed sharp debridement of lower leg wounds Sign In: 1014 A Moment of CARE was completed. Personnel directly involved with the procedure wore the appropriate PPE (Personal Protective Equipment). Patient/Surrogate Stated/Verified: 1014 PATIENT VERIFIED(optional for EMERGENT procedures): Patient name, Date of , Relevant allergies, and The intended procedure Time Out Communication: 1015 Intended patient and procedure match the source documents. Consent documented and matches the intended procedure. No relevant labs, photos, and/or imaging studies were applicable for review. Sign Out: 1020 SIGN OUT (optional for EMERGENT procedures): All instruments, equipment, possible retained foreign bodies accounted for. Amena Leonard RN/dulce Current HBOT Status: Active or Complete - see screening below WOUND CENTER HYPERBARIC OXYGEN THERAPY SCREENING 1. Is the patient diabetic? (If No, skip to question 5) Yes 2. Does the patient have a lower extremity wound? Yes 3. Is there exposed/involved tendon or bone? 4. Has the wound been present for 30 days? Yes If Yes to ALL questions above, consult the [facility] 5. Has the patient been diagnosed with osteomyelitis? No 6. Has the patient had a previous skin graft or flap at the wound? No 7. Has the patient had or been offered vascular intervention/evaluation? No 8. Does the patient have a wound at an amputation site? Yes 9. Has the patient had radiation therapy at the site of the problem? No If Yes to ANY of questions 5-9, [facility] 04-26-2024 Instructions Amena Leonard RN - 04/26/2024 9:57 AM EDT WOUND CARE INSTRUCTIONS- Shade Brambila Wound location: Bilateral Lower Leg Wounds - Gather supplies - Place down a clean work surface such as new paper towel or newly cleaned towel. - Clean all metal instruments with rubbing alcohol before and after each use. - Plastic garbage bag for old dressing - Wash your hands with soap and water before and after wound care. Wash your foot with dial soap and water. Dry well between the toes. Bilateral Lower Extremity Wound Care: Wash wounds with: Vashe Apply to wound bed: Medihoney gel, Adaptic, Calcium Alginate Ag Cover wounds with: 4x4 [place] SAP bandagges Other: change dressings daily, moisturize lower legs with vaseline daily - Apply Farrow wraps every morning: Apply compression first thing in the morning. OK to remove compression at bedtime. Compression must be removed if: it becomes wet or soiled If you have numbness or tingling in your foot or toes If you have increased pain If toes become cold or discolored - Avoid sitting with legs in a dependent position or standing for long periods of time. - Attempt to lay flat and elevate your legs above the level of your heart 2-3 times daily, for 30 minutes at a time. - Be sure to continue walking and/or calf pumps and exercises to mimic writing the alphabet with your foot, as instructed Foot care Many people with diabetes lose the feeling in their feet (neuropathy). Therefore, they might not know they have an injury that can lead to serious problems, such as foot removal (amputation). By taking care of your feet, most serious problems can be prevented. If you have problems checking your own feet, have a family member or friend help you. Easy steps to protect your feet: Check your feet every day for: dry or cracked skin, cuts, open sores, blisters, redness, swelling, corns, calluses, or toenail problems. Use a mirror if necessary. Report any problems to your doctor. Keep your feet clean and dry, especially between the toes. If your feet are dry or cracked use a moisturizing lotion at least daily but never between the toes. See your judicial clerk every three months for foot and nail care. Don't go barefoot. Wear shoes or slippers at all times. Wear comfortable shoes that fit well. Check inside your shoes for foreign objects or rough spots before putting on shoes. Always wear socks. Avoid using anything hot, such as heating pads, hot water bottles, hot tubs, or bath water. Check the temperature of bath water with your elbow not your foot. Take your shoes and socks off at every office visit to remind your doctor to check your feet. Also, never tape a dressing directly to the skin on your legs or feet. Instead, use a self-adherent bandage to avoid injuring the skin on your lower extremities If calluses form they can cause wound ulcers to appear under the callus, must be seen by [employer] every three months to prevent. Maintain controlled blood sugar, if blood sugar is consistently above 200 this can delay wound healing and aggravate neuropathy. - Control your sodium intake as instructed by provider To give your wound the best chance to heal: - Eat three balanced meals daily focusing on the protein - Control your blood sugar. Keep blood sugar less than 200 - Complete your wound care instructions as ordered - Vitamin C 500 mg twice daily - Multiple Vitamin Daily - Drink a protein shake daily - Premiere Clear or Glucerna for Diabetic patients, Nepro for renal patients and premiere for non-renal and non-diabetic patients Report any of the following signs and symptoms of infection to the Wound Center at [phone] or go to the Emergency Department: Fever or chills Increased drainage Green or yellow drainage Foul odor Increased pain Hardness around the wound Redness, warmth or swelling of the surrounding tissue Color change to the wound Evenings / Weekends / Holidays If you call the wound center at the phone number provided above, please leave a detailed message that includes your full name, birthday, and phone number. We are seeing patients during the day, so we will return your call within a 24-48 hr period in the order your call was received. There is not an on-call provider assigned to the wound center. If you have an emergency that needs to be addressed, please go to an Urgent Care or Emergency Room. Thank you for your cooperation and understanding. Due to the cold and flu season approaching us, if you have any symptoms such as a cough, fever, chills, nausea, vomiting, diarrhea, and/or body aches, please call and reschedule your appointment in the Wound Center. PLAN/ORDERS: Follow-up in the Wound Center with Dr Eric DPM in 2 weeks: May 10 @ 1030a. Continue aggressive nutritional support to assist wound healing, focusing on increasing protein intake. Wound care supplies were ordered through [facility], please call monthly for additional supplies at the phone number provided: . Dr. Berny Reyes DPM/martha/dulce documented in this encounter [facility] 04-26-2024 Nurse Note Nursing Documentation Pertinent Medical History: DM2, HTN, venous insufficiency, & heart failure Wound Etiology according to patient: leg swelling & wounds February 2024 Pt had right great toe amputation June 18, 2023 Patient arrived via: Ambulatory with [facility] Care Company/Nursing Facility: N/A Consent captured for debridement per Dr. Alfredo Moore DPM and linda until March 2024 Consent captured for debridement per Dr. Berny Reyes DPM and linda until 2024 Consent captured for debridement per Dr. Hu Pickard DPM and linda until September 2024 Anticoagulant Therapy: ASA 81mg ACTIVE CARE PER PROVIDER: Giovanni HAM, uH HAM, & Alfredo Moore DPM Wounds 1-30 previously closed WOUND # 34 LOCATION: Right Distal Medial Lower Leg-CLOSED 03/13/24 (February 2024) CLOSED 03/13/24, closed 03/29/24 Application Dates: Grafts are complete 01/07/2023 Apligraf 01/15/2023 Apligraf 01/21/2023 Apligraf 01/27/2023 Apligraf 02/04/2023 Apligraf WOUND # 35 LOCATION: Right Posterior Lower Leg (February 2024) Closed 03/29/24, closed 04/12/24 WOUND ASSESSMENT: Refer to Provider's Wound Assessment Note VASCULAR ASSESSMENT BY PROVIDER: See provider wound assessment note CHF History: Yes as of February 2022, Dr. Sadler in Cardiology EDEMA: Right Foot: none Right Ankle: 2+ Right Calf: none Left Foot: none Left Ankle: 2+ Left Calf: none Other: N/A MEASUREMENTS: in cm Right Calf: 31.1 Right Ankle: 20.3 Left Calf: 30.2 Left Ankle: 20.8 Length: 43.0 WOUND PHOTOGRAPHY: No, (last taken 04/12/24) DEBRIDEMENT PROCEDURE BY PROVIDER: Anesthetic Used: 2% lidogel applied by Leanna Triplett RN Other procedure: n/a Specimen collected:n/a WOUND TREATMENT PER MD ORDER: Wounds cleansed by mechanical debridement to allow provider to visualize wound base WOUND # 31 LOCATION: Left Anterior Lower Leg (February 2024) L: 1.1 cm x W: 0.7 cm x D: 0.1 cm WOUND # 32 LOCATION: Left Posterior Lower Leg Cluster (February 2024) L: 2.6 cm x W: 1.9 cm x D: 0.1 cm WOUND # 33 LOCATION: Right Medial Lower Leg-CLUSTER (February 2024) L: 1.0 cm x W: 0.8 cm x D: 0.1 cm Cleansed with: Vashe Applied to naya-wound skin: skin prep, vaseline Applied to wound bed: medihoney gel, Adaptic, Calcium Alginate Ag Covered and secured with: 4x4 [place] SAP Other: COMPRESSION: Patient own Jobst Farrow wraps SPECIAL NEEDS: Coordination of care N/A Emotional support N/A OR set-up N/A Yarn Examiner N/A Incontinence needs N/A DME company: ordered 03/01/24 (supplies and Farrow wraps) DISCHARGED in stable condition to: ambulatory with cane PLAN/ORDERS: Follow-up in the Wound Center with Dr Eric DPM in 2 weeks: May 10 @ 1030a. Continue aggressive nutritional support to assist wound healing, focusing on increasing protein intake. Wound care supplies were ordered through [facility], please call monthly for additional supplies at the phone number provided: . EDUCATION: Continuation of current wound care, follow up. The patient/family was instructed how to cleanse the wound(s). Visual demonstration on how to apply the dressing with teach back method. Signs & symptoms of infection were reviewed: Increased redness, swelling, pain, green/yellow drainage, fever and/or chills would all need to be evaluated by a Physician. Patient received typed home-going wound care instructions and has expressed intent to comply. OTHER EDUCATION: Education performed regarding lymphedema/edema: Elevation of extremity above the heart for 30 minutes three times daily and as needed Exercise such as writing the ABC's with your toes in the air, walking and/or calf pumps Wearing compression as ordered by provider Diet controlling of sodium as instructed by provider Use of medication to help control edema. UNIVERSAL PROTOCOL / SAFETY CHECKLIST - Procedure to be Performed sharp debridement of lower leg wounds Sign In: 1014 A Moment of CARE was completed. Personnel directly involved with the procedure wore the appropriate PPE (Personal Protective Equipment). Patient/Surrogate Stated/Verified: 1014 PATIENT VERIFIED(optional for EMERGENT procedures): Patient name, Date of , Relevant allergies, and The intended procedure Time Out Communication: 1015 Intended patient and procedure match the source documents. Consent documented and matches the intended procedure. No relevant labs, photos, and/or imaging studies were applicable for review. Sign Out: 1020 SIGN OUT (optional for EMERGENT procedures): All instruments, equipment, possible retained foreign bodies accounted for. Amena Leonard RN/dulce Current HBOT Status: Active or Complete - see screening below WOUND CENTER HYPERBARIC OXYGEN THERAPY SCREENING 1. Is the patient diabetic? (If No, skip to question 5) Yes 2. Does the patient have a lower extremity wound? Yes 3. Is there exposed/involved tendon or bone? 4. Has the wound been present for 30 days? Yes If Yes to ALL questions above, consult the Hyperbaric Center 5. Has the patient been diagnosed with osteomyelitis? No 6. Has the patient had a previous skin graft or flap at the wound? No 7. Has the patient had or been offered vascular intervention/evaluation? No 8. Does the patient have a wound at an amputation site? Yes 9. Has the patient had radiation therapy at the site of the problem? No If Yes to ANY of questions 5-9, consult the Hyperbaric Center documented in this encounter [facility] 04-24-2024 Telephone encounter Note Orders Faxed to them on 04/13 and confirmation received. [facility] 04-24-2024 Miscellaneous Notes Orders Faxed to them on 04/13 and confirmation received. [facility] has faxed over progress notes for patient PT for signature. The notes have been faxed several times, but they have not returned. Please return call to [phone] documented in this encounter [facility] 04-24-2024 Telephone encounter Note [facility] has faxed over progress notes for patient PT for signature. The notes have been faxed several times, but they have not returned. Please return call to [phone] [facility] 04-17-2024 Instructions Giovanni Cerrato MD - 04/17/2024 10:57 AM EDT Repeat A1C again on or after 06/13/2024 See me again in 6 months. Continue good dietary habits. documented in this encounter [facility] 04-17-2024 Note HNO ID: [id number] Author: GIOVANNI CERRATO MD Service: ? Author Type: Physician Type: Progress Notes Filed: 04/17/2024 11:16 Note Text: Follow-up 63 year-old female, patient of Dr. Eldon Gill, with insulin-requiring type 2 diabetes mellitus since 1998. Takes metformin 1000 mg every day, Jardiance, and U500 insulin pens at meals. She has a FreeStyle CGMS. She notes no recent hypoglycemia detected by her glucose sensor. Notes she has good insulin dosing adherence, is injecting insulin 3x daily. Is checking her fingerstick glucose 3x daily, using results to guide her insulin treatment. Non-smoker, denies alcohol use. NKDA. Review of her diet shows less overindulgence in carbohydrates. Medication list, insulin doses reviewed with the patient, reconciled. Maximal lifetime weight was 260 pounds. Had diabetic eye exam in 05/2023. 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 Weight has been decreasing. Seen in ED in 03/2023 for hypotension, dizziness; furosemide discontinued. Hospitalized in 10/2023 with toe ulcer and had remaining toes removed (now functionally a TMA), 08/2023 for endometrial cancer and underwent KORI/BSO, 06/2023 for heart failure. Says high A1C was due to dietary indiscretion which she says she has improved upon. Has bilateral leg ulcers, followed by podiatry. Current Outpatient Medications on File Prior to Visit Medication Sig honey (MEDIHONEY) 100 % pste Apply thin layer of medihoney to bilateral lower leg wounds. Change daily. Patient should start on March 31, 2024. ACCU-CHEK JOSE PLUS TEST STRP test strip USE TO TEST BLOOD GLUCOSE 3 TIMES DAILY enalapril (VASOTEC) 20 mg tablet Take 0.5 tablets by mouth two times a day. atorvastatin (LIPITOR) 80 mg tablet take 1 tablet by mouth every day furosemide (LASIX) 20 mg tablet Take 20 mg by mouth once daily. take 20mg as needed for swelling metFORMIN (GLUCOPHAGE) 1,000 mg tablet TAKE 1 TABLET BY MOUTH DAILY ascorbic acid (VITAMIN C ORAL) Take by mouth. aspirin, enteric coated (ASPIRIN, ENTERIC COATED) 81 mg EC tablet Take 81 mg by mouth once daily. insulin regular human, CONCENTRATED 500 UNIT/ML, (HUMULIN R) 500 unit/mL (3 mL) inpn 40 units sc at breakfast, 100 units at lunch, 70 units at supper. fluticasone (FLONASE) 50 mcg/actuation nasal spray Use 2 Sprays in each nostril once daily as needed.) cyanocobalamin, vitamin B-12, 1,000 mcg/mL kit 1,000 mcg by INJECTION(UNSPECIFIED PARENTERAL ROUTES) route once every month. JARDIANCE 25 mg tablet take 1 tablet by mouth every day CPAP/BIPAP/OTHER New set up: Settings 5 - 15 cm H2O, suitable mask per pt preference, chin strap, head gear, humidity, tubing, lifetime supplies. G47.33 NELLY Blood Pressure Monitor Please monitor blood pressure 1-2 hours after taking morning medications. Zinc 50 mg tab Take 50 mg by mouth once daily. multivit,thx,calcium,iron,mins (MULTIVITAMIN AND MINERAL ORAL) Take 1 tablet by mouth once daily. ibuprofen (ADVIL ORAL) Take 3 tablets by mouth as needed. FLUoxetine (PROZAC) 40 mg capsule Take by mouth q 24 HR. lancets (ONE TOUCH ProZyme) 33 gauge USE TO BLOOD GLUCOSE 3 TIMES DAILY. INSULIN DEPENDENT E11.3299, E11.65, Z79.4 insulin needles, DISPOSABLE, (BD INSULIN PEN NEEDLE UF) 31 gauge x 5/16 FOUR DAILY FOR INSULIN INJECTIONS. Blood-Glucose Meter mis Use to test blood glucose 3 times daily. Insulin Dependent E11.3299, E11.65, Z79.4 Cholecalciferol, Vitamin D3, 50 mcg (2,000 unit) cap Take 1 tablet by mouth once daily. 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 Vitamin D deficiency 01/05/2017 PAST SURGICAL HISTORY PAST SURGICAL HISTORY Procedure Laterality Date DANDC, DIAG AND/OR THERAPEUTIC x3 EXTENSIVE HAND SURGERY Dupuytren contracture TONSILLECTOMY HX Review of systems: Patient notes no weight gain, fever, weakness, change in balance or sensation, visual problems, hearing changes, dizziness, trouble swallowing, nasal difficulties, chest pain, foot or leg problems, skin lesions, abdominal pain, diarrhea, constipation, urinary problems, incontinence, back pain, joint pains, anxiety, depression, menstrual difficulties, breast lesions/pain/mass. Remainder of review of systems was unremarkable. BP 165/89 Pulse 94 Resp 16 Ht 172.7 cm (5' 7.99) Wt 102.1 kg (225 lb 1.4 oz) SpO2 98% BMI 34.23 kg/m? Healthy-appearing obese (BMI > 30) female in no distress. (more content not included)... [facility] 04-17-2024 History of Presen t illness Narrative Follow-up 63 year-old female, patient of Dr. Eldon Gill, with insulin-requiring type 2 diabetes mellitus since 1998. Takes metformin 1000 mg every day, Jardiance, and U500 insulin pens at meals. She has a FreeTakeacoderyle CGMS. She notes no recent hypoglycemia detected by her glucose sensor. Notes she has good insulin dosing adherence, is injecting insulin 3x daily. Is checking her fingerstick glucose 3x daily, using results to guide her insulin treatment. Non-smoker, denies alcohol use. NKDA. Review of her diet shows less overindulgence in carbohydrates. Medication list, insulin doses reviewed with the patient, reconciled. Maximal lifetime weight was 260 pounds. Had diabetic eye exam in 05/2023. 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 Weight has been decreasing. Seen in ED in 03/2023 for hypotension, dizziness; furosemide discontinued. Hospitalized in 10/2023 with toe ulcer and had remaining toes removed (now functionally a TMA), 08/2023 for endometrial cancer and underwent KORI/BSO, 06/2023 for heart failure. Says high A1C was due to dietary indiscretion which she says she has improved upon. Has bilateral leg ulcers, followed by podiatry. Current Outpatient Medications on File Prior to Visit Medication Sig honey (MEDIHONEY) 100 % pste Apply thin layer of medihoney to bilateral lower leg wounds. Change daily. Patient should start on March 31, 2024. ACCU-CHEK JOSE PLUS TEST STRP test strip USE TO TEST BLOOD GLUCOSE 3 TIMES DAILY enalapril (VASOTEC) 20 mg tablet Take 0.5 tablets by mouth two times a day. atorvastatin (LIPITOR) 80 mg tablet take 1 tablet by mouth every day furosemide (LASIX) 20 mg tablet Take 20 mg by mouth once daily. take 20mg as needed for swelling metFORMIN (GLUCOPHAGE) 1,000 mg tablet TAKE 1 TABLET BY MOUTH DAILY ascorbic acid (VITAMIN C ORAL) Take by mouth. aspirin, enteric coated (ASPIRIN, ENTERIC COATED) 81 mg EC tablet Take 81 mg by mouth once daily. insulin regular human, CONCENTRATED 500 UNIT/ML, (HUMULIN R) 500 unit/mL (3 mL) inpn 40 units sc at breakfast, 100 units at lunch, 70 units at supper. fluticasone (FLONASE) 50 mcg/actuation nasal spray Use 2 Sprays in each nostril once daily as needed.) cyanocobalamin, vitamin B-12, 1,000 mcg/mL kit 1,000 mcg by INJECTION(UNSPECIFIED PARENTERAL ROUTES) route once every month. JARDIANCE 25 mg tablet take 1 tablet by mouth every day CPAP/BIPAP/OTHER New set up: Settings 5 - 15 cm H2O, suitable mask per pt preference, chin strap, head gear, humidity, tubing, lifetime supplies. G47.33 NELLY Blood Pressure Monitor Please monitor blood pressure 1-2 hours after taking morning medications. Zinc 50 mg tab Take 50 mg by mouth once daily. multivit,thx,calcium,iron,mins (MULTIVITAMIN AND MINERAL ORAL) Take 1 tablet by mouth once daily. ibuprofen (ADVIL ORAL) Take 3 tablets by mouth as needed. FLUoxetine (PROZAC) 40 mg capsule Take by mouth q 24 HR. lancets (ONE TOUCH [employer]in [employer]) 33 gauge USE TO BLOOD GLUCOSE 3 TIMES DAILY. INSULIN DEPENDENT E11.3299, E11.65, Z79.4 insulin needles, DISPOSABLE, (BD INSULIN PEN NEEDLE UF) 31 gauge x 5/16 FOUR DAILY FOR INSULIN INJECTIONS. Blood-Glucose Meter [facility] Use to test blood glucose 3 times daily. Insulin Dependent E11.3299, E11.65, Z79.4 Cholecalciferol, Vitamin D3, 50 mcg (2,000 unit) cap Take 1 tablet by mouth once daily. 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 Vitamin D deficiency 01/05/2017 PAST SURGICAL HISTORY PAST SURGICAL HISTORY Procedure Laterality Date D&C, DIAG AND/OR THERAPEUTIC x3 EXTENSIVE HAND SURGERY Dupuytren contracture TONSILLECTOMY HX Review of systems: Patient notes no weight gain, fever, weakness, change in balance or sensation, visual problems, hearing changes, dizziness, trouble swallowing, nasal difficulties, chest pain, foot or leg problems, skin lesions, abdominal pain, diarrhea, constipation, urinary problems, incontinence, back pain, joint pains, anxiety, depression, menstrual difficulties, breast lesions/pain/mass. Remainder of review of systems was unremarkable. BP 165/89 Pulse 94 Resp 16 Ht 172.7 cm (5' 7.99) Wt 102.1 kg (225 lb 1.4 oz) SpO2 98% BMI 34.23 kg/m Healthy-appearing obese (BMI > 30) female in no distress. Weight down 3 pounds since 06/2023. Height stable. Blood pressure elevated, pulse regular. Repeat BP Thinning hair over the vertex. No thyromegaly. Breathing unlabored. Heart regular rate and rhythm. Feet:Shoes and socks removed, trace DP distal pulses, and absent sensation. Right foot with well healed toe ampuatations. Left foot no ulcers. Has bilateral leg ulcers. Latest Reference Range & Units 01/11/24 14:19 03/13/24 15:00 Sodium 136 - 144 mmol/L 137 Potassium 3.7 - 5.1 mmol/L 5.3 (H) Chloride 97 - 105 mmol/L 103 CO2 22 - 30 mmol/L 26 BUN 7 - 21 mg/dL 52 (H) Creatinine 0.58 - 0.96 mg/dL 1.05 (H) Glucose 74 - 99 mg/dL 204 (H) Calcium 8.5 - 10.2 mg/dL 9.6 Hemoglobin A1C 4.3 - 5.6 % 9.8 (H) (H): Data is abnormally high (L): Data is abnormally low IMPRESSION: Type 2 diabetes mellitus, insulin-requiring, with proliferative retinopathy - poor control. Urged continued good insulin dosing adherence. Repeat A1C in 06/2024. Hypertension - good BP control Hyperlipidemia - continue atorvastatin Obesity - urged lowered carbohydrate diet approach Pernicious anemia - continue B12 injections monthly PLAN: Continue metformin and Jardiance, current U500 insulin doses Check A1C again in 06/2024 Will call with results See us again in 6 months. Continue close follow-up with podiatry Continue with Dr. Gill for regular health care needs Giovanni Cerrato MD, FACP I spent a total of 30 minutes on the date of service which included preparing to see the patient, [id number] patient care, completing clinical documentation, performing a medically appropriate examination, counseling and educating the patient/family/caregiver and ordering medications, tests, or procedures. documented in this encounter [facility] 04-13-2024 Note [facility] 04-13-2024 History of Presen t illness Narrative Problem list reviewed. CHIEF COMPLAINT: check B/L lower leg wounds DM II A1c 8.3 (10/07/23) DLS 02/08/24 HISTORY OF PRESENT ILLNESS: Patient last seen Patient relates her [facility] nurse was concerned about her drainage and redness so asked her to call for an earlier appointment. Her pain is 6/10. better drainage. wounds are smaller today and less drainage. she had PVR done 04/05/24 and here to review. Here today for B/L lower leg wound check. She states that she has new water blisters B/L lower legs which started beginning February 2024. She has circade wraps and just got farrow wraps but has yet to start using them and forgot to bring them today to learn how to apply. She has had leg wounds before but never this many and they usually heal quickly. Denies N/V/F/C/D/SOB/CP/LP. She relates she can't feel feet well due to neuropathy. She has numbness and toe amputations. Referred by Dr. Dasilva. 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 Right 2nd toe amputation and hallux I&D 10/28/22. Hx s/p RT toe amp 3,4,5 (DOS 10/14/23) DME DM inserts 08/24/23 rx circade wraps 08/14/22 CURRENT MEDICATIONS: Percocet Oral Tablet 5-325 MG (10/27/2023) Take 1 tablet every 6 hours as needed for 4 day(s) Clindamycin HCl Oral Capsule 300 MG (11/26/2022) TAKE 1 CAPSULE BY MOUTH EVERY 8 HOURS FOR 7 DAYS. oxyCODONE-Acetaminophen Oral Tablet 5-325 MG (10/28/2022) Ketorolac Tromethamine Ophthalmic Solution 0.5 % (04/26/2023) Accu-Chek Jose Plus In Vitro Strip (09/23/2022) Sulfamethoxazole-Trimethoprim Oral Tablet 800-160 MG (06/24/2023) Atorvastatin Calcium Oral Tablet 80 MG (06/13/2023) miSOPROStol Oral Tablet 200 MCG (06/15/2023) TAKE 2 TABLETS BY MOUTH THE DAY PRIOR TO PROCEDURE AT BEDTIME WITH FOOD Fluticasone Propionate Nasal Suspension 50 MCG/ACT (12/15/2022) USE 2 SPRAYS IN EACH NOSTRIL DAILY X1 WEEK,THEN 1 SPRAY IN EACH NOSTRIL DAILY THEREAFTER NEEDED Nitrofurantoin Monohyd Macro Oral Capsule 100 MG (02/08/2023) Cephalexin Oral Capsule 500 MG (09/26/2022) Doxycycline Hyclate Oral Capsule 100 MG (11/10/2022) Fluconazole Oral Tablet 200 MG (03/20/2024) TAKE 1 TABLET EVERY DAY FOR 21 DAYS Bactrim DS Oral Tablet 800-160 MG (06/24/2023) Take 1 tablet twice a day for 10 day(s) Cipro Oral Tablet 500 MG (06/11/2023) Take 1 tablet twice a day for 7 day(s) Doxycycline Hyclate Oral Tablet 100 MG (06/08/2023) Take 1 tablet twice a day for 7 day(s) Ciprofloxacin HCl Oral Tablet 500 MG (11/10/2022) Take 1 tablet twice a day for 7 day(s) Cephalexin Oral Tablet 500 MG (10/23/2022) Take 1 tablet three times a day for 7 day(s) Ofloxacin Ophthalmic Solution 0.3 % (03/30/2023) diazePAM Oral Tablet 10 MG (02/19/2022) TAKE 1 TABLET 60 MIN BEFORE TEST Atorvastatin Calcium Oral Tablet 40 MG (11/18/2022) FLUoxetine HCl Oral Capsule 40 MG (01/26/2022) Enalapril Maleate Oral Tablet 10 MG (01/26/2022) TAKE 1 TABLET BY MOUTH EVERY DAY Erythromycin Ophthalmic Ointment 5 MG/GM (02/09/2022) APPLY 1 A SMALL AMOUNT LEFT EYE 4 TIMES A DAY Atorvastatin Calcium Oral Tablet 20 MG (01/26/2022) TAKE 1 TABLET BY MOUTH EVERY DAY Spironolactone Oral Tablet 25 MG (06/15/2023) TAKE 0.5 TABLETS BY MOUTH ONCE DAILY. Jardiance Oral Tablet 25 MG (06/14/2023) TAKE 1 TABLET BY MOUTH EVERY DAY WITH BREAKFAST Furosemide Oral Tablet 40 MG (11/18/2022) HumuLIN R U-500 KwikPen Subcutaneous Solution Pen-injector 500 UNIT/ML (06/14/2023) INJECT 40 UNITS SUBCUTANEOUSLY AT BREAKFAST, 100 UNITS AT LUNCH, 80 UNITS AT SUPPER. metFORMIN HCl Oral Tablet 1000 MG (11/23/2022) TAKE 1 TABLET BY MOUTH TWICE DAILY WITH MEALS. E11.3599 ALLERGIES: Band-Aid [place] Surg Dressing Other Bandaging Tape Other PAST MEDICAL HISTORY: Podiatry History remarkable for Foot Numbness, Fungal Nails, Leg or Foot Ulcers. The patient has a past medical history of Arthritis, Depression, DM-Medication Dependent, Poor Circulation. Neuropathy High Cholesterol SURGICAL HISTORY: Hand Tonsils HOSPITALIZATIONS: None Noted SOCIAL HISTORY: Smoking Status: Never smoker; Last Reviewed: 12/08/2023 Alcohol use: social drinker No drug use Social History Reviewed (01/16/2021 11:20:18 AM EST) FAMILY HISTORY: There is a family history of Denial of any knowledge of significant family history. Denial of any knowledge of significant family history Family History Reviewed (01/16/2021 11:20:19 AM EST) REVIEW OF SYSTEMS: Psychologic: Admits to No psych symptoms. Review of systems otherwise negative PHYSICAL EXAMINATION: Vital Signs: Weight 235 lbs; Height 5 ft 8 in; BMI 35.7 04/10/2024 9:18 AM (EST) Temperature 98.6 F; Pulse Rate 100 bpm; Blood Pressure 120 / 80 mm/Hg Vascular Exam: BL Foot DP / PT pulses +2/4. 2+ edema B/L LE CFT less than 3 seconds to digits LEFT, skin temp warm to warm from proximal to distal BL Foot Dermatologic Exam: RT medial lower leg cluster wound measures 0.9x0.7x0.1cm and post debridement measures 1x0.8x0.1cm with 80:20 granular fibrotic base, surrounding slough, no erythema, no purulence, no probe to bone, no malodor, MOD serous drainage. Into level of SUBCUTANEOUS TISSUE LT medial lower leg wound healed LT anterior lower leg wound predebridement measures 1.3x0.9x0.1cm and post debridement measures 1.4x1x0.1cm with 60:40 granular fibrotic base, surrounding slough, no erythema, no purulence, no probe to bone, no malodor, MOD serous drainage. Into level of SUBCUTANEOUS TISSUE LT posterior lower leg cluster wound predebridement measures 1.6x1.9x0.1cm and post debridement measures 2.6x2x0.1cm with 70:30 granular fibrotic base post, surrounding slough, no erythema, no purulence, no probe to bone, no malodor, MOD serous drainage. Into level of SUBCUTANEOUS TISSUE RT distal medial lower leg wound healed RT posterior lower leg wound closed LEFT foot 2nd toe tuft hyperkeratotic tissue Nails 1-5 left are thickened, elongated and discolored with subungual debris. The nails are greater than .3mm in thickness. The discoloration is yellowish in color. Innerspaces 1-4 LT are clean dry and intact. Skin texture and turgor are decreased. absent or decreased hair growth bilateral. chronic lower leg red hyperpigmentation Neurologic Exam: Comments/Other Findings: Vibratory sensations decreased LT, Protective sensations absent LT tested with 5.07 monofilament, and light, sharp, and temperature sensations intact LT. Normal Babinski test noted bl foot after testing Orthopedic Exam: Additional Orthopedic Findings: RT foot toe amputations 1,2,3,4,5 LEFT 2nd hammertoe contracture semi- rigid DIAGNOSIS: Type II diabetes mellitus with neurological manifestations Lymphedema of both lower extremities PVD (peripheral vascular disease) History of amputation of right great toe Amputated toe of right foot Hammertoe of right foot Personal history of diabetic foot ulcer Callus Diabetic ulcer of toe of left foot associated with type 2 diabetes mellitus, limited to breakdown of skin Swelling of right lower extremity Surgical wound dehiscence Onychomycosis Skin ulcer of left great toe, limited to breakdown of skin Venous ulcer of left lower extremity without varicose veins Ulcer of left lower extremity, limited to breakdown of skin Venous ulcer of right lower extremity without varicose veins Ulcer of right lower extremity, limited to breakdown of skin PLAN AND TREATMENT: ASSESMENT & PLAN BL Foot and Ankle and Lower extremity Exam and Evaluation carried out with a treatment plan reviewed with the patient and findings discussed with patient including alternatives, benefits, complications and risks TESTS / IMAGING / X-RAY EXAM 12/22/21 PVR RESULTS: RIGHT SIDE Resting right ankle brachial index: 1.37Right toe brachial index: 0.70Normal ankle brachial index at rest in the right leg. Normal toe brachial index at rest in the right leg. Right ankle: Normal at rest. LEFT SIDE Resting left ankle brachial index: 1.33Left toe brachial index: 0.83Normal ankle brachial index at rest in the left leg. Normal toe brachial index at rest in the left leg. Left ankle: Normal at rest. PREVIOUS right foot XR: There was noted to be normal joint spaces unless noted. No fractures or dislocations noted. No soft tissue emphysema noted. No osteopenia or sclerosis noted. tibial and fibular sesamoid excised, there is small calcified piece of fibular sesamoid bone noted to plantar lateral 1st met. RT foot amp at MTPJ 1,2,3,4,5. no lytic lesions. no soft tissue gas noted. No new B/L LE wounds LT anterior lower leg, LT posterior lower extremity cluster, and RT medial lower extremitynoted in exam were treated with sharp excisional debridement carried out of the wound with non selective sharp excisional debridement past the dermis into SUBCUTANEOUS level with use of curette and 15 scalpel blade. Devitalized tissue removed. We then flushed out the wound with wound wash sterile saline. Area numbed with lidocaine gel if sensate prior. see phys exam Discussed importance in offloading, proper nutrition including blood sugar control and getting enough protein and vitamins, infection prevention, proper wound care in wound healing. Also discussed detrimental impact of smoking on healing. Reviewed proper wound care with patient. To not soak wound but to clean appropriately. To watch for signs of infection both local and systemic. These were reviewed with the patient. If seen to contact office or go to ED. To continue wound care consisting of washing the wound with betadine and apply adaptic, alginate, excel SAP. circade or farrow wraps. change every day pad and protect area well ok to shower but pat dry after showering and do wound care she can wear normal tennis shoe we discussed that her wounds are from her high a1c. she has history of this when she loses control of blood sugar. instructed no local signs of infection Previously Rx Farrow wraps 30-40mmHg for compression Previously Rx PVR. has not had one since 2021. was normal at that time. Has new one scheduled for tomorrow New PVR B/L LE reviewed with patient. cont work with PCP for swelling control nutritional consultation was recommended. we went over proper diet and protein intake. 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 more mild disease to left lower leg from knee to calf.consider sending to vascular but should have adquate inflow to hi lower leg PVR as below Non-Invasive Vascular Laboratory [facility] Lower Extremity Arterial Physiology Study Bilateral/Complete Date of service/time: 04/05/2024 10:56:20 AM Name: MS. SHADE BRAMBILA Date of : 1960 Age: 63 years Gender: F Clinical Indication Leg/foot ulceration. TECHNIQUE -------- An arterial physiological examination was performed, including measurement of blood pressures using continuous wave Doppler and recording of plethysmographic with or without Doppler waveforms at the below-mentioned limb segments. FINDINGS -------- RIGHT SIDE AT REST Right Doppler Waveforms Dorsalis pedis: Multiphasic. Post tibial: Multiphasic. Right Pressures Brachial: 154 mmHg High thigh: greater than 255 mmHg Non-compressible arteries. Low thigh: greater than 255 mmHg Non-compressible arteries. Calf: greater than 255 mmHg Non-compressible arteries. Ankle dorsalis pedis: 146 mmHg MANJEET: 0.95 Ankle posterior tibial: 197 mmHg MANJEET: 1.28 Digit: Transmetatarsal amputation. Right PVR Waveforms High thigh: Normal. Low thigh: Normal. Calf: Normal. Ankle: Normal. Transmetatarsal: Normal. Digit: Transmetatarsal amputation. LEFT SIDE AT REST Left Doppler Waveforms Dorsalis pedis: Multiphasic. Post tibial: Multiphasic. Left Pressures Brachial: 153 mmHg High thigh: greater than 255 mmHg Non-compressible arteries. Low thigh: greater than 255 mmHg Non-compressible arteries. Calf: 218 mmHg Partially non-compressible arteries. Ankle dorsalis pedis: 138 mmHg MANJEET: 0.90 Ankle posterior tibial: 108 mmHg MANJEET: 0.70 Digit: 98 mmHg Left PVR Waveforms High thigh: Normal. Low thigh: Normal. Calf: Normal. Ankle: Mildly dampened. Transmetatarsal: Moderately dampened. Digit: Moderately dampened. see back in 2 weeks at wound care center for B/L lower leg wounds Type II diabetes mellitus with neurological manifestations 250.60 E11.49 Diagnosis Notes Drag & Drop to change diagnosis order Lymphedema of both lower extremities 457.1 I89.0 Diagnosis Notes Drag & Drop to change diagnosis order PVD (peripheral vascular disease) 443.9 I73.9 Diagnosis Notes Drag & Drop to change diagnosis order History of amputation of right great toe V49.71 Z89.411 Diagnosis Notes Drag & Drop to change diagnosis order Amputated toe of right foot 895.0 S98.131A Diagnosis Notes Drag & Drop to change diagnosis order Hammertoe of right foot 735.4 M20.41 Diagnosis Notes Drag & Drop to change diagnosis order Personal history of diabetic foot ulcer V12.29 Z86.31 Diagnosis Notes Drag & Drop to change diagnosis order Callus 700 L84 Diagnosis Notes Drag & Drop to change diagnosis order Diabetic ulcer of toe of left foot associated with type 2 diabetes mellitus, limited to breakdown of skin 250.80 E11.621 Diagnosis Notes Drag & Drop to change diagnosis order Swelling of right lower extremity 729.81 M79.89 Diagnosis Notes Drag & Drop to change diagnosis order Surgical wound dehiscence 998.32 T81.31XA Diagnosis Notes Drag & Drop to change diagnosis order Onychomycosis 110.1 B35.1 Diagnosis Notes Drag & Drop to change diagnosis order Skin ulcer of left great toe, limited to breakdown of skin 707.15 L97.521 Diagnosis Notes Drag & Drop to change diagnosis order Venous ulcer of left lower extremity without varicose veins 459.81 I87.2 Diagnosis Notes Drag & Drop to change diagnosis order Ulcer of left lower extremity, limited to breakdown of skin 707.10 L97.921 Diagnosis Notes Drag & Drop to change diagnosis order Venous ulcer of right lower extremity without varicose veins 459.81 I87.2 Diagnosis Notes Drag & Drop to change diagnosis order Ulcer of right lower extremity, limited to breakdown of skin 707.10 L97.911 documented in this encounter [facility] 04-13-2024 Telephone encounter Note Faxed and confirmation received [facility] 04-13-2024 Miscellaneous Notes Faxed and confirmation received PT evaluation report received from [facility]. Placed on provider desk for review and signature. Once signed fax to [phone]. documented in this encounter [facility] 04-12-2024 Nurse Note Nursing Documentation Pertinent Medical History: DM2, HTN, venous insufficiency, & heart failure Wound Etiology according to patient: leg swelling & wounds February 2024 Pt had right great toe amputation June 18, 2023 Patient arrived via: Ambulatory with [facility] Care Company/Nursing Facility: N/A Consent captured for debridement per Dr. Alfredo Moore DPM and linda until March 2024 Consent captured for debridement per Dr. Berny Reyes DPM and linda until 2024 Consent captured for debridement per Dr. Hu Pickard DPM and linda until September 2024 Anticoagulant Therapy: ASA 81mg ACTIVE CARE PER PROVIDER: Giovanni Bolanos DPM, Hu Pickard DPM, & Alfredo Moore DPM WOUND # 1 -22 previously closed WOUND # 24, 25 previously closed WOUND # 27 LOCATION: Right dorsal Foot - intact bulla on arrival - new 11/26/22 Blister dry, intact closed skin 12/03/22, closed 12/07/22 WOUND # 26 - LOCATION: Right Great Toe - Hallux Lateral- (new 11/10/22) - closed 01/15/23, remains closed 01-28-2023 WOUND # 23 - LOCATION: Right 2nd Toe AMP Site CLOSED 03/18/23 WOUND # 28 LOCATION: Right 1st/2nd Toe Amp Site - (NEW 06/18/23) Closed 07/27/23 WOUND # 30 LOCATION: Right lateral posterior lower leg (09/16/23) closed 09/30/23 WOUND # 29 LOCATION: Right 3rd Toe Tuft (NEW 07/27/23) WOUND # 34 LOCATION: Right Distal Medial Lower Leg-CLOSED 03/13/24 (February 2024) CLOSED 03/13/24, closed 03/29/24 Application Dates: Grafts are complete 01/07/2023 Apligraf 01/15/2023 Apligraf 01/21/2023 Apligraf 01/27/2023 Apligraf 02/04/2023 Apligraf WOUND # 35 LOCATION: Right Posterior Lower Leg (February 2024) Closed 03/29/24, closed 04/12/24 WOUND ASSESSMENT: Refer to Provider's Wound Assessment Note VASCULAR ASSESSMENT BY PROVIDER: See provider wound assessment note CHF History: Yes as of February 2022, Dr. Sadler in Cardiology EDEMA: Right Foot: 1+ Right Ankle: trace Right Calf: none Left Foot: trace Left Ankle: none Left Calf: 1+ Other: N/A MEASUREMENTS: in cm Right Calf: 30.1 Right Ankle: 21.2 Left Calf: 35.0 Left Ankle: 20.0 Length: 43.0 WOUND PHOTOGRAPHY: YES x 3 (last taken 04/12/24) DEBRIDEMENT PROCEDURE BY PROVIDER: Anesthetic Used: 2% lidogel applied by Felicitas Fabian RN Other procedure: n/a Specimen collected:n/a WOUND TREATMENT PER MD ORDER: Wounds cleansed by mechanical debridement to allow provider to visualize wound base WOUND # 31 LOCATION: Left Anterior Lower Leg (February 2024) L: 1.4 cm x W: 1.0 cm x D: 0.1 cm Cleansed with: Vashe Applied to naya-wound skin: skin prep, vaseline Applied to wound bed: medihoney gel, Adaptic, Calcium Alginate Ag Covered and secured with: 4x4 [place] SAP Other: WOUND # 32 LOCATION: Left Posterior Lower Leg Cluster (February 2024) L: 2.6 cm x W: 2.0 cm x D: 0.1 cm Cleansed with: Vashe Applied to naya-wound skin: skin prep, vaseline Applied to wound bed: medihoney gel, Adaptic, Calcium Alginate Ag Covered and secured with: 4x4 [place] SAP Other: WOUND # 33 LOCATION: Right Medial Lower Leg-CLUSTER (February 2024) L: 1.0 cm x W: 0.8 cm x D: 0.1 cm Cleansed with: Vashe Applied to naya-wound skin: skin prep, vaseline Applied to wound bed: medihoney gel, Adaptic, Calcium Alginate Ag Covered and secured with: 4x4 SAP EXCEL Other: WOUND # 35 LOCATION: Right Posterior Lower Leg (February 2024) Closed 03/29/24, closed 04/12/24 COMPRESSION: Patient own Jobst Farrow wraps SPECIAL NEEDS: Coordination of care N/A Emotional support N/A OR set-up N/A Yarn Examiner N/A Incontinence needs N/A [employer] company: ordered 03/01/24 (supplies and Farrow wraps) DISCHARGED in stable condition to: ambulatory with cane PLAN/ORDERS: Follow-up in the Wound Center with Dr Eric DPM in 2 weeks: 04/26/24 @ 10am Cancel your nail appointment at [facility] office and Dr. Reyes will take care of your nails here in the wound center Continue aggressive nutritional support to assist wound healing, focusing on increasing protein intake. Wound care supplies were ordered through [facility]. , please call monthly for additional supplies at the phone number provided: . EDUCATION: Dr. Reyes reviewed PVR results with patient; discussed need for better blood sugar control and increasing protein intake to help optimize wound healing. The patient/family was instructed how to cleanse the wound(s). Visual demonstration on how to apply the dressing with teach back method. Signs & symptoms of infection were reviewed: Increased redness, swelling, pain, green/yellow drainage, fever and/or chills would all need to be evaluated by a Physician. Patient received typed home-going wound care instructions and has expressed intent to comply. OTHER EDUCATION: Patient frustrated with new Farrow wraps, prefers the Circaid garments; patient educated on tips for donning the Farrow wraps and she is willing to give them another try. Discussed blood sugar control and adding a snack at bedtime to help prevent low blood sugar readings first thing in the morning. Education performed regarding lymphedema/edema: Elevation of extremity above the heart for 30 minutes three times daily and as needed Exercise such as writing the ABC's with your toes in the air, walking and/or calf pumps Wearing compression as ordered by provider Diet controlling of sodium as instructed by provider Use of medication to help control edema. UNIVERSAL PROTOCOL / SAFETY CHECKLIST - Procedure to be Performed sharp debridement of lower leg wounds Sign In: 1220 A Moment of CARE was completed. Personnel directly involved with the procedure wore the appropriate PPE (Personal Protective Equipment). Patient/Surrogate Stated/Verified: PATIENT VERIFIED(optional for EMERGENT procedures): Patient name, Date of , Relevant allergies, and The intended procedure Time Out Communication: 1220 Intended patient and procedure match the source documents. Consent documented and matches the intended procedure. No relevant labs, photos, and/or imaging studies were applicable for review. Sign Out: 1235 SIGN OUT (optional for EMERGENT procedures): All instruments, equipment, possible retained foreign bodies accounted for. Shelley Kenny RN/rivka Current HBOT Status: Active or Complete - see screening below WOUND CENTER HYPERBARIC OXYGEN THERAPY SCREENING 1. Is the patient diabetic? (If No, skip to question 5) Yes 2. Does the patient have a lower extremity wound? Yes 3. Is there exposed/involved tendon or bone? 4. Has the wound been present for 30 days? Yes If Yes to ALL questions above, [facility] 5. Has the patient been diagnosed with osteomyelitis? No 6. Has the patient had a previous skin graft or flap at the wound? No 7. Has the patient had or been offered vascular intervention/evaluation? No 8. Does the patient have a wound at an amputation site? Yes 9. Has the patient had radiation therapy at the site of the problem? No If Yes to ANY of questions 5-9, consult the [facility] Shelley Kenny RN/rivka [facility] 04-12-2024 Instructions Shelley Kenny RN - 04/12/2024 12:06 PM EDT WOUND CARE INSTRUCTIONS- Shade Brambila Wound location: Bilateral Lower Leg Wounds - Gather supplies - Place down a clean work surface such as new paper towel or newly cleaned towel. - Clean all metal instruments with rubbing alcohol before and after each use. - Plastic garbage bag for old dressing - Wash your hands with soap and water before and after wound care. Wash your foot with dial soap and water. Dry well between the toes. Bilateral Lower Extremity Wound Care: Wash wounds with: Vashe Apply to wound bed: Medihoney gel, Adaptic, Calcium Alginate Ag Cover wounds with: 4x4 [place] SAP bandagges Other: change dressings daily, moisturize lower legs with vaseline daily - Apply Farrow wraps every morning: Apply compression first thing in the morning. OK to remove compression at bedtime. Compression must be removed if: it becomes wet or soiled If you have numbness or tingling in your foot or toes If you have increased pain If toes become cold or discolored - Avoid sitting with legs in a dependent position or standing for long periods of time. - Attempt to lay flat and elevate your legs above the level of your heart 2-3 times daily, for 30 minutes at a time. - Be sure to continue walking and/or calf pumps and exercises to mimic writing the alphabet with your foot, as instructed Foot care Many people with diabetes lose the feeling in their feet (neuropathy). Therefore, they might not know they have an injury that can lead to serious problems, such as foot removal (amputation). By taking care of your feet, most serious problems can be prevented. If you have problems checking your own feet, have a family member or friend help you. Easy steps to protect your feet: Check your feet every day for: dry or cracked skin, cuts, open sores, blisters, redness, swelling, corns, calluses, or toenail problems. Use a mirror if necessary. Report any problems to your doctor. Keep your feet clean and dry, especially between the toes. If your feet are dry or cracked use a moisturizing lotion at least daily but never between the toes. See your judicial clerk every three months for foot and nail care. Don't go barefoot. Wear shoes or slippers at all times. Wear comfortable shoes that fit well. Check inside your shoes for foreign objects or rough spots before putting on shoes. Always wear socks. Avoid using anything hot, such as heating pads, hot water bottles, hot tubs, or bath water. Check the temperature of bath water with your elbow not your foot. Take your shoes and socks off at every office visit to remind your doctor to check your feet. Also, never tape a dressing directly to the skin on your legs or feet. Instead, use a self-adherent bandage to avoid injuring the skin on your lower extremities If calluses form they can cause wound ulcers to appear under the callus, must be seen by [employer] every three months to prevent. Maintain controlled blood sugar, if blood sugar is consistently above 200 this can delay wound healing and aggravate neuropathy. - Control your sodium intake as instructed by provider To give your wound the best chance to heal: - Eat three balanced meals daily focusing on the protein - Control your blood sugar. Keep blood sugar less than 200 - Complete your wound care instructions as ordered - Vitamin C 500 mg twice daily - Multiple Vitamin Daily - Drink a protein shake daily - Premiere Clear or Glucerna for Diabetic patients, Nepro for renal patients and premiere for non-renal and non-diabetic patients Report any of the following signs and symptoms of infection to the Wound Center at [phone] or go to the Emergency Department: Fever or chills Increased drainage Green or yellow drainage Foul odor Increased pain Hardness around the wound Redness, warmth or swelling of the surrounding tissue Color change to the wound Evenings / Weekends / Holidays If you call the wound center at the phone number provided above, please leave a detailed message that includes your full name, birthday, and phone number. We are seeing patients during the day, so we will return your call within a 24-48 hr period in the order your call was received. There is not an on-call provider assigned to the wound center. If you have an emergency that needs to be addressed, please go to an Urgent Care or Emergency Room. Thank you for your cooperation and understanding. Due to the cold and flu season approaching us, if you have any symptoms such as a cough, fever, chills, nausea, vomiting, diarrhea, and/or body aches, please call and reschedule your appointment in the Wound Center. PLAN/ORDERS: Follow-up in the Wound Center with Dr Eric DPM in 2 weeks: 04/26/24 @ 10am Cancel your nail appointment at [facility] office and Dr. Reyes will take care of your nails here in the wound center Continue aggressive nutritional support to assist wound healing, focusing on increasing protein intake. Wound care supplies were ordered through [facility]. , please call monthly for additional supplies at the phone number provided: . Dr. Berny Reyes DPM/carla/rivka documented in this encounter [facility] 04-12-2024 Nurse Note Nursing Documentation Pertinent Medical History: DM2, HTN, venous insufficiency, & heart failure Wound Etiology according to patient: leg swelling & wounds February 2024 Pt had right great toe amputation June 18, 2023 Patient arrived via: Ambulatory with [facility]/Nursing Facility: N/A Consent captured for debridement per Dr. Alfredo Moore DPM and linda until March 2024 Consent captured for debridement per Dr. Berny Reyes DPM and linda until 2024 Consent captured for debridement per Dr. Hu Pickard DPM and linda until September 2024 Anticoagulant Therapy: ASA 81mg ACTIVE CARE PER PROVIDER: Giovanni HAM, Hu HAM, & Alfredo Moore DPM WOUND # 1 -22 previously closed WOUND # 24, 25 previously closed WOUND # 27 LOCATION: Right dorsal Foot - intact bulla on arrival - new 11/26/22 Blister dry, intact closed skin 12/03/22, closed 12/07/22 WOUND # 26 - LOCATION: Right Great Toe - Hallux Lateral- (new 11/10/22) - closed 01/15/23, remains closed 01-28-2023 WOUND # 23 - LOCATION: Right 2nd Toe AMP Site CLOSED 03/18/23 WOUND # 28 LOCATION: Right 1st/2nd Toe Amp Site - (NEW 06/18/23) Closed 07/27/23 WOUND # 30 LOCATION: Right lateral posterior lower leg (09/16/23) closed 09/30/23 WOUND # 29 LOCATION: Right 3rd Toe Tuft (NEW 07/27/23) WOUND # 34 LOCATION: Right Distal Medial Lower Leg-CLOSED 03/13/24 (February 2024) CLOSED 03/13/24, closed 03/29/24 Application Dates: Grafts are complete 01/07/2023 Apligraf 01/15/2023 Apligraf 01/21/2023 Apligraf 01/27/2023 Apligraf 02/04/2023 Apligraf WOUND # 35 LOCATION: Right Posterior Lower Leg (February 2024) Closed 03/29/24, closed 04/12/24 WOUND ASSESSMENT: Refer to Provider's Wound Assessment Note VASCULAR ASSESSMENT BY PROVIDER: See provider wound assessment note CHF History: Yes as of February 2022, Dr. Sadler in Cardiology EDEMA: Right Foot: 1+ Right Ankle: trace Right Calf: none Left Foot: trace Left Ankle: none Left Calf: 1+ Other: N/A MEASUREMENTS: in cm Right Calf: 30.1 Right Ankle: 21.2 Left Calf: 35.0 Left Ankle: 20.0 Length: 43.0 WOUND PHOTOGRAPHY: YES x 3 (last taken 04/12/24) DEBRIDEMENT PROCEDURE BY PROVIDER: Anesthetic Used: 2% lidogel applied by Felicitas Fabian RN Other procedure: n/a Specimen collected:n/a WOUND TREATMENT PER MD ORDER: Wounds cleansed by mechanical debridement to allow provider to visualize wound base WOUND # 31 LOCATION: Left Anterior Lower Leg (February 2024) L: 1.4 cm x W: 1.0 cm x D: 0.1 cm Cleansed with: Vashe Applied to naya-wound skin: skin prep, vaseline Applied to wound bed: medihoney gel, Adaptic, Calcium Alginate Ag Covered and secured with: 4x4 [place] SAP Other: WOUND # 32 LOCATION: Left Posterior Lower Leg Cluster (February 2024) L: 2.6 cm x W: 2.0 cm x D: 0.1 cm Cleansed with: Vashe Applied to naya-wound skin: skin prep, vaseline Applied to wound bed: medihoney gel, Adaptic, Calcium Alginate Ag Covered and secured with: 4x4 [place] SAP Other: WOUND # 33 LOCATION: Right Medial Lower Leg-CLUSTER (February 2024) L: 1.0 cm x W: 0.8 cm x D: 0.1 cm Cleansed with: Vashe Applied to naya-wound skin: skin prep, vaseline Applied to wound bed: medihoney gel, Adaptic, Calcium Alginate Ag Covered and secured with: 4x4 SAP EXCEL Other: WOUND # 35 LOCATION: Right Posterior Lower Leg (February 2024) Closed 03/29/24, closed 04/12/24 COMPRESSION: Patient own Jobst Farrow wraps SPECIAL NEEDS: Coordination of care N/A Emotional support N/A OR set-up N/A Yarn Examiner N/A Incontinence needs N/A [employer] company: ordered 03/01/24 (supplies and Farrow wraps) DISCHARGED in stable condition to: ambulatory with cane PLAN/ORDERS: Follow-up in the Wound Center with Dr Eric DPM in 2 weeks: 04/26/24 @ 10am Cancel your nail appointment at [facility] office and Dr. Reyes will take care of your nails here in the wound center Continue aggressive nutritional support to assist wound healing, focusing on increasing protein intake. Wound care supplies were ordered through [facility]. , please call monthly for additional supplies at the phone number provided: . EDUCATION: Dr. Reyes reviewed PVR results with patient; discussed need for better blood sugar control and increasing protein intake to help optimize wound healing. The patient/family was instructed how to cleanse the wound(s). Visual demonstration on how to apply the dressing with teach back method. Signs & symptoms of infection were reviewed: Increased redness, swelling, pain, green/yellow drainage, fever and/or chills would all need to be evaluated by a Physician. Patient received typed home-going wound care instructions and has expressed intent to comply. OTHER EDUCATION: Patient frustrated with new Farrow wraps, prefers the Circaid garments; patient educated on tips for donning the Farrow wraps and she is willing to give them another try. Discussed blood sugar control and adding a snack at bedtime to help prevent low blood sugar readings first thing in the morning. Education performed regarding lymphedema/edema: Elevation of extremity above the heart for 30 minutes three times daily and as needed Exercise such as writing the ABC's with your toes in the air, walking and/or calf pumps Wearing compression as ordered by provider Diet controlling of sodium as instructed by provider Use of medication to help control edema. UNIVERSAL PROTOCOL / SAFETY CHECKLIST - Procedure to be Performed sharp debridement of lower leg wounds Sign In: 1220 A Moment of CARE was completed. Personnel directly involved with the procedure wore the appropriate PPE (Personal Protective Equipment). Patient/Surrogate Stated/Verified: PATIENT VERIFIED(optional for EMERGENT procedures): Patient name, Date of , Relevant allergies, and The intended procedure Time Out Communication: 1220 Intended patient and procedure match the source documents. Consent documented and matches the intended procedure. No relevant labs, photos, and/or imaging studies were applicable for review. Sign Out: 1235 SIGN OUT (optional for EMERGENT procedures): All instruments, equipment, possible retained foreign bodies accounted for. Shelley Kenny RN/rivka Current HBOT Status: Active or Complete - see screening below WOUND CENTER HYPERBARIC OXYGEN THERAPY SCREENING 1. Is the patient diabetic? (If No, skip to question 5) Yes 2. Does the patient have a lower extremity wound? Yes 3. Is there exposed/involved tendon or bone? 4. Has the wound been present for 30 days? Yes If Yes to ALL questions above, consult the Hyperbaric Center 5. Has the patient been diagnosed with osteomyelitis? No 6. Has the patient had a previous skin graft or flap at the wound? No 7. Has the patient had or been offered vascular intervention/evaluation? No 8. Does the patient have a wound at an amputation site? Yes 9. Has the patient had radiation therapy at the site of the problem? No If Yes to ANY of questions 5-9, consult the Hyperbaric Center Shelley Kenny RN/rivka documented in this encounter [facility] 04-06-2024 Note HNO ID: [id number] Author: CHANCE CAMARA MA Service: ? Author Type: Linen Tech Type: Progress Notes Filed: 04/06/2024 13:52 Note Text: B12 Injection LOT: [id number] EXP: 08/05/25 [facility]: [id number] Verified by this ( KATIUSKA) Chance Camara (KATIUSKA) [facility] 03-31-2024 Telephone encounter Note PT evaluation report received from [facility]. Placed on provider desk for review and signature. Once signed fax to [phone]. [facility] 03-30-2024 Note [facility] 03-30-2024 History of Presen t illness Narrative Problem list reviewed. CHIEF COMPLAINT: check B/L lower leg wounds DM II A1c 8.3 (10/07/23) DLS 02/08/24 HISTORY OF PRESENT ILLNESS: Patient previously seen by my colleague Dr Reyes. Patient relates her [facility] nurse was concerned about her drainage and redness so asked her to call for an earlier appointment. Her pain is 6/10. She relates she has had a lot of drainage from both legs. She is on lasix and has had dose adjusted. Here today for B/L lower leg wound check. She is getting new PVRs soon. She states that she has new water blisters B/L lower legs which started beginning February 2024. She has circade wraps and just got farrow wraps but has yet to start using them and forgot to bring them today to learn how to apply. She has had leg wounds before but never this many and they usually heal quickly. Denies N/V/F/C/D/SOB/CP/LP. She relates she can't feel feet well due to neuropathy. She has numbness and toe amputations. Referred by Dr. Dasilva. 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 Right 2nd toe amputation and hallux I&D 10/28/22. Hx s/p RT toe amp 3,4,5 (DOS 10/14/23) DME DM inserts 08/24/23 rx circade wraps 08/14/22 CURRENT MEDICATIONS: Percocet Oral Tablet 5-325 MG (10/27/2023) Take 1 tablet every 6 hours as needed for 4 day(s) Clindamycin HCl Oral Capsule 300 MG (11/26/2022) TAKE 1 CAPSULE BY MOUTH EVERY 8 HOURS FOR 7 DAYS. oxyCODONE-Acetaminophen Oral Tablet 5-325 MG (10/28/2022) Ketorolac Tromethamine Ophthalmic Solution 0.5 % (04/26/2023) Accu-Chek Jose Plus In Vitro Strip (09/23/2022) Sulfamethoxazole-Trimethoprim Oral Tablet 800-160 MG (06/24/2023) Atorvastatin Calcium Oral Tablet 80 MG (06/13/2023) miSOPROStol Oral Tablet 200 MCG (06/15/2023) TAKE 2 TABLETS BY MOUTH THE DAY PRIOR TO PROCEDURE AT BEDTIME WITH FOOD Fluticasone Propionate Nasal Suspension 50 MCG/ACT (12/15/2022) USE 2 SPRAYS IN EACH NOSTRIL DAILY X1 WEEK,THEN 1 SPRAY IN EACH NOSTRIL DAILY THEREAFTER NEEDED Nitrofurantoin Monohyd Macro Oral Capsule 100 MG (02/08/2023) Cephalexin Oral Capsule 500 MG (09/26/2022) Doxycycline Hyclate Oral Capsule 100 MG (11/10/2022) Fluconazole Oral Tablet 200 MG (03/20/2024) TAKE 1 TABLET EVERY DAY FOR 21 DAYS Bactrim DS Oral Tablet 800-160 MG (06/24/2023) Take 1 tablet twice a day for 10 day(s) Cipro Oral Tablet 500 MG (06/11/2023) Take 1 tablet twice a day for 7 day(s) Doxycycline Hyclate Oral Tablet 100 MG (06/08/2023) Take 1 tablet twice a day for 7 day(s) Ciprofloxacin HCl Oral Tablet 500 MG (11/10/2022) Take 1 tablet twice a day for 7 day(s) Cephalexin Oral Tablet 500 MG (10/23/2022) Take 1 tablet three times a day for 7 day(s) Ofloxacin Ophthalmic Solution 0.3 % (03/30/2023) diazePAM Oral Tablet 10 MG (02/19/2022) TAKE 1 TABLET 60 MIN BEFORE TEST Atorvastatin Calcium Oral Tablet 40 MG (11/18/2022) FLUoxetine HCl Oral Capsule 40 MG (01/26/2022) Enalapril Maleate Oral Tablet 10 MG (01/26/2022) TAKE 1 TABLET BY MOUTH EVERY DAY Erythromycin Ophthalmic Ointment 5 MG/GM (02/09/2022) APPLY 1 A SMALL AMOUNT LEFT EYE 4 TIMES A DAY Atorvastatin Calcium Oral Tablet 20 MG (01/26/2022) TAKE 1 TABLET BY MOUTH EVERY DAY Spironolactone Oral Tablet 25 MG (06/15/2023) TAKE 0.5 TABLETS BY MOUTH ONCE DAILY. Jardiance Oral Tablet 25 MG (06/14/2023) TAKE 1 TABLET BY MOUTH EVERY DAY WITH BREAKFAST Furosemide Oral Tablet 40 MG (11/18/2022) HumuLIN R U-500 KwikPen Subcutaneous Solution Pen-injector 500 UNIT/ML (06/14/2023) INJECT 40 UNITS SUBCUTANEOUSLY AT BREAKFAST, 100 UNITS AT LUNCH, 80 UNITS AT SUPPER. metFORMIN HCl Oral Tablet 1000 MG (11/23/2022) TAKE 1 TABLET BY MOUTH TWICE DAILY WITH MEALS. E11.3599 ALLERGIES: Band-Aid [place] Surg Dressing Other Bandaging Tape Other PAST MEDICAL HISTORY: Podiatry History remarkable for Foot Numbness, Fungal Nails, Leg or Foot Ulcers. The patient has a past medical history of Arthritis, Depression, DM-Medication Dependent, Poor Circulation. Neuropathy High Cholesterol SURGICAL HISTORY: Hand Tonsils HOSPITALIZATIONS: None Noted SOCIAL HISTORY: Smoking Status: Never smoker; Last Reviewed: 12/08/2023 Alcohol use: social drinker No drug use Social History Reviewed (01/16/2021 11:20:18 AM EST) FAMILY HISTORY: There is a family history of Denial of any knowledge of significant family history. Denial of any knowledge of significant family history Family History Reviewed (01/16/2021 11:20:19 AM EST) REVIEW OF SYSTEMS: Psychologic: Admits to No psych symptoms. Review of systems otherwise negative PHYSICAL EXAMINATION: Vital Signs: Weight 235 lbs; Height 5 ft 8 in; BMI 35.7 03/27/2024 10:19 AM (EST) Temperature 98.6 F; Pulse Rate 100 bpm; Blood Pressure 120 / 80 mm/Hg Vascular Exam: BL Foot DP / PT pulses +2/4. 2+ edema B/L LE CFT less than 3 seconds to digits LEFT, skin temp warm to warm from proximal to distal BL Foot Dermatologic Exam: RT medial lower leg cluster wound measures 4.6x4x0.1cm and post debridement measures 4.8x4.1x0.1cm with 80:20 granular fibrotic base, surrounding slough, no erythema, no purulence, no probe to bone, no malodor, HEAVY serous drainage. Into level of SUBCUTANEOUS TISSUE 50% debrided of the wound LT medial lower leg wound measures 0.3x0.3x0.1cm and post debridement measures 0.4x0.4x0.1cm with 80:20 granular fibrotic base, surrounding slough, no erythema, no purulence, no probe to bone, no malodor, HEAVY serous drainage. Into level of SUBCUTANEOUS TISSUE LT anterior lower leg wound predebridement measures 1.4x1.4x0.1cm and post debridement measures 1.5x1.5x0.1cm with 30:70 granular fibrotic base, surrounding slough, no erythema, no purulence, no probe to bone, no malodor, HEAVY serous drainage. Into level of SUBCUTANEOUS TISSUE LT posterior lower leg cluster wound predebridement measures 3.6x2.3x0.1cm and post debridement measures 3.7x2.4x0.1cm with 70:30 granular fibrotic base post, surrounding slough, no erythema, no purulence, no probe to bone, no malodor, HEAVY serous drainage. Into level of SUBCUTANEOUS TISSUE RT distal medial lower leg wound healed RT posterior lower leg wound closed LEFT foot 2nd toe tuft hyperkeratotic tissue Nails 1-5 left are thickened, elongated and discolored with subungual debris. The nails are greater than .3mm in thickness. The discoloration is yellowish in color. Innerspaces 1-4 LT are clean dry and intact. Skin texture and turgor are decreased. absent or decreased hair growth bilateral. chronic lower leg red hyperpigmentation Neurologic Exam: Comments/Other Findings: Vibratory sensations decreased LT, Protective sensations absent LT tested with 5.07 monofilament, and light, sharp, and temperature sensations intact LT. Normal Babinski test noted bl foot after testing Orthopedic Exam: Additional Orthopedic Findings: RT foot toe amputations 1,2,3,4,5 LEFT 2nd hammertoe contracture semi- rigid DIAGNOSIS: Type II diabetes mellitus with neurological manifestations Lymphedema of both lower extremities PVD (peripheral vascular disease) History of amputation of right great toe Amputated toe of right foot Hammertoe of right foot Personal history of diabetic foot ulcer Callus Diabetic ulcer of toe of left foot associated with type 2 diabetes mellitus, limited to breakdown of skin Swelling of right lower extremity Surgical wound dehiscence Onychomycosis Skin ulcer of left great toe, limited to breakdown of skin Venous ulcer of left lower extremity without varicose veins Ulcer of left lower extremity, limited to breakdown of skin Venous ulcer of right lower extremity without varicose veins Ulcer of right lower extremity, limited to breakdown of skin PLAN AND TREATMENT: ASSESMENT & PLAN BL Foot and Ankle and Lower extremity Exam and Evaluation carried out with a treatment plan reviewed with the patient and findings discussed with patient including alternatives, benefits, complications and risks TESTS / IMAGING / X-RAY EXAM 12/22/21 PVR RESULTS: RIGHT SIDE Resting right ankle brachial index: 1.37Right toe brachial index: 0.70Normal ankle brachial index at rest in the right leg. Normal toe brachial index at rest in the right leg. Right ankle: Normal at rest. LEFT SIDE Resting left ankle brachial index: 1.33Left toe brachial index: 0.83Normal ankle brachial index at rest in the left leg. Normal toe brachial index at rest in the left leg. Left ankle: Normal at rest. PREVIOUS right foot XR: There was noted to be normal joint spaces unless noted. No fractures or dislocations noted. No soft tissue emphysema noted. No osteopenia or sclerosis noted. tibial and fibular sesamoid excised, there is small calcified piece of fibular sesamoid bone noted to plantar lateral 1st met. RT foot amp at MTPJ 1,2,3,4,5. no lytic lesions. no soft tissue gas noted. new left medial lower leg wound. overall B/L lower legs wounds better/less drainage B/L lower leg ulcers noted in exam were treated with sharp excisional debridement carried out of the wound with non selective sharp excisional debridement past the dermis into SUBCUTANEOUS level with use of curette and 15 scalpel blade. Devitalized tissue removed. We then flushed out the wound with wound wash sterile saline. Area numbed with lidocaine gel if sensate prior. see phys exam 50% debrided of RT medial lower leg cluster. all other wounds 100% of wound surface area Discussed importance in offloading, proper nutrition including blood sugar control and getting enough protein and vitamins, infection prevention, proper wound care in wound healing. Also discussed detrimental impact of smoking on healing. Reviewed proper wound care with patient. To not soak wound but to clean appropriately. To watch for signs of infection both local and systemic. These were reviewed with the patient. If seen to contact office or go to ED. To continue wound care consisting of washing the wound with betadine and apply adaptic, alginate, excel SAP. circade or farrow wraps. change every day pad and protect area well ok to shower but pat dry after showering and do wound care she can wear normal tennis shoe we discussed that her wounds are from her high a1c. she has history of this when she loses control of blood sugar. instructed no local signs of infection Previously Rx Farrow wraps 30-40mmHg for compression Previously Rx PVR. has not had one since 2021. was normal at that time. Has new one scheduled for tomorrow cont work with PCP for swelling control see back in 2 weeks at wound care center for B/L lower leg wounds Type II diabetes mellitus with neurological manifestations 250.60 E11.49 Diagnosis Notes Drag & Drop to change diagnosis order Lymphedema of both lower extremities 457.1 I89.0 Diagnosis Notes Drag & Drop to change diagnosis order PVD (peripheral vascular disease) 443.9 I73.9 Diagnosis Notes Drag & Drop to change diagnosis order History of amputation of right great toe V49.71 Z89.411 Diagnosis Notes Drag & Drop to change diagnosis order Amputated toe of right foot 895.0 S98.131A Diagnosis Notes Drag & Drop to change diagnosis order Hammertoe of right foot 735.4 M20.41 Diagnosis Notes Drag & Drop to change diagnosis order Personal history of diabetic foot ulcer V12.29 Z86.31 Diagnosis Notes Drag & Drop to change diagnosis order Callus 700 L84 Diagnosis Notes Drag & Drop to change diagnosis order Diabetic ulcer of toe of left foot associated with type 2 diabetes mellitus, limited to breakdown of skin 250.80 E11.621 Diagnosis Notes Drag & Drop to change diagnosis order Swelling of right lower extremity 729.81 M79.89 Diagnosis Notes Drag & Drop to change diagnosis order Surgical wound dehiscence 998.32 T81.31XA Diagnosis Notes Drag & Drop to change diagnosis order Onychomycosis 110.1 B35.1 Diagnosis Notes Drag & Drop to change diagnosis order Skin ulcer of left great toe, limited to breakdown of skin 707.15 L97.521 Diagnosis Notes Drag & Drop to change diagnosis order Venous ulcer of left lower extremity without varicose veins 459.81 I87.2 Diagnosis Notes Drag & Drop to change diagnosis order Ulcer of left lower extremity, limited to breakdown of skin 707.10 L97.921 Diagnosis Notes Drag & Drop to change diagnosis order Venous ulcer of right lower extremity without varicose veins 459.81 I87.2 Diagnosis Notes Drag & Drop to change diagnosis order Ulcer of right lower extremity, limited to breakdown of skin 707.10 L97.911 documented in this encounter [facility] 03-30-2024 Telephone encounter Note Received 03-29-24 from cc. Placed in provider's inbox for review. Route to MA scanning [facility] 03-30-2024 Miscellaneous Notes Received 03-29-24 from cc. Placed in provider's inbox for review. Route to MA scanning documented in this encounter [facility] 03-29-2024 Nurse Note Nursing Documentation Pertinent Medical History: DM2, HTN, venous insufficiency, & heart failure Wound Etiology according to patient: leg swelling & wounds February 2024 Pt had right great toe amputation June 18, 2023 Patient arrived via: Ambulatory with [facility]/Nursing Facility: N/A Consent captured for debridement per Dr. Alfredo Moore DPM and linda until March 2024 Consent captured for debridement per Dr. Berny Reyes DPM and linda until 2024 Consent captured for debridement per Dr. Hu Pickard, PABLITO and linda until September 2024 Anticoagulant Therapy: ASA 81mg ACTIVE CARE PER PROVIDER: Giovanni Bolanos DPM, Hu HAM, & Alfredo HAM WOUND # 1 -22 previously closed WOUND # 24, 25 previously closed WOUND # 27 LOCATION: Right dorsal Foot - intact bulla on arrival - new 11/26/22 Blister dry, intact closed skin 12/03/22, closed 12/07/22 WOUND # 26 - LOCATION: Right Great Toe - Hallux Lateral- (new 11/10/22) - closed 01/15/23, remains closed 01-28-2023 WOUND # 23 - LOCATION: Right 2nd Toe AMP Site CLOSED 03/18/23 WOUND # 28 LOCATION: Right 1st/2nd Toe Amp Site - (NEW 06/18/23) Closed 07/27/23 WOUND # 30 LOCATION: Right lateral posterior lower leg (09/16/23) closed 09/30/23 WOUND # 29 LOCATION: Right 3rd Toe Tuft (NEW 07/27/23) WOUND # 34 LOCATION: Right Distal Medial Lower Leg-CLOSED 03/13/24 (February 2024) CLOSED 03/13/24, closed 03/29/24 Application Dates: Grafts are complete 01/07/2023 Apligraf 01/15/2023 Apligraf 01/21/2023 Apligraf 01/27/2023 Apligraf 02/04/2023 Apligraf WOUND ASSESSMENT: Refer to Provider's Wound Assessment Note VASCULAR ASSESSMENT BY PROVIDER: See provider wound assessment note CHF History: Yes as of February 2022, Dr. Sadler in Cardiology EDEMA: Right Foot: trace Right Ankle: 1+ pitting Right Calf: 1+ pitting Left Foot: 1+ pitting Left Ankle: 1+ pitting Left Calf: 1+ pitting Other: N/A MEASUREMENTS: in cm Right Calf: 31.4 Right Ankle: 20.5 Left Calf: 30.5 Left Ankle: 20.4 Length: 43.0 WOUND PHOTOGRAPHY: NO (last taken 03/13/24) DEBRIDEMENT PROCEDURE BY PROVIDER: Anesthetic Used: Insensate Other procedure: n/a Specimen collected:n/a WOUND TREATMENT PER MD ORDER: Wounds cleansed by mechanical debridement to allow provider to visualize wound base WOUND # 31 LOCATION: Left Anterior Lower Leg (February 2024) L: 1.5 cm x W: 1.5 cm x D: 0.1 cm Cleansed with: Vashe Applied to naya-wound skin: skin prep, vaseline Applied to wound bed: medihoney gel, Adaptic, Calcium Alginate Ag Covered and secured with: 4x4 [place] SAP Other: WOUND # 32 LOCATION: Left Posterior Lower Leg Cluster (February 2024) L: 3.7 cm x W: 2.4 cm x D: 0.1 cm Cleansed with: Vashe Applied to naya-wound skin: skin prep, vaseline Applied to wound bed: medihoney gel, Adaptic, Calcium Alginate Ag Covered and secured with: 4x4 [place] SAP Other: WOUND # 33 LOCATION: Right Medial Lower Leg-CLUSTER (February 2024) L: 4.8 cm x W: 4.1 cm x D: 0.1 cm - 50% debrided Cleansed with: Vashe Applied to naya-wound skin: skin prep, vaseline Applied to wound bed: medihoney gel, Adaptic, Calcium Alginate Ag Covered and secured with: 6x7 SAP EXCEL Other: WOUND # 35 LOCATION: Right Posterior Lower Leg (February 2024) Closed 03/29/24 COMPRESSION: Patient own Jobst Farrow wraps SPECIAL NEEDS: Coordination of care N/A Emotional support N/A OR set-up N/A Yarn Examiner N/A Incontinence needs N/A DME company: ordered 03/01/24 (supplies and Farrow wraps) DISCHARGED in stable condition to: ambulatory with cane PLAN/ORDERS: Follow-up in the Wound Center with Dr Eric DPM in 2 weeks: 04/12/24 @ 11am Prescription for Medihoney gel sent to your pharmacy PVR scheduled for March 30, 2024 Continue aggressive nutritional support to assist wound healing, focusing on increasing protein intake. Wound care supplies were ordered through [facility]. , please call monthly for additional supplies at the phone number provided: . EDUCATION: Dr. Reyes discussed with patient the need for better blood sugar control to help with wound healing; will add Medihoney gel to the wound care which patient still has some at home. The patient/family was instructed how to cleanse the wound(s). Visual demonstration on how to apply the dressing with teach back method. Signs & symptoms of infection were reviewed: Increased redness, swelling, pain, green/yellow drainage, fever and/or chills would all need to be evaluated by a Physician. Patient received typed home-going wound care instructions and has expressed intent to comply. OTHER EDUCATION: Reviewed new wound care and how to apply new Farrow wraps; discussed blood sugar control and adding a snack at bedtime to help prevent low blood sugar readings first thing in the morning. Education performed regarding lymphedema/edema: Elevation of extremity above the heart for 30 minutes three times daily and as needed Exercise such as writing the ABC's with your toes in the air, walking and/or calf pumps Wearing compression as ordered by provider Diet controlling of sodium as instructed by provider Use of medication to help control edema. UNIVERSAL PROTOCOL / SAFETY CHECKLIST - Procedure to be Performed sharp debridement of lower leg wounds Sign In: 1121 A Moment of CARE was completed. Personnel directly involved with the procedure wore the appropriate PPE (Personal Protective Equipment). Patient/Surrogate Stated/Verified: PATIENT VERIFIED(optional for EMERGENT procedures): Patient name, Date of , Relevant allergies, and The intended procedure Time Out Communication: 1121 Intended patient and procedure match the source documents. Consent documented and matches the intended procedure. No relevant labs, photos, and/or imaging studies were applicable for review. Sign Out: 1130 SIGN OUT (optional for EMERGENT procedures): All instruments, equipment, possible retained foreign bodies accounted for. Shelley Kenny RN/kwesi Current HBOT Status: Active or Complete - see screening below WOUND CENTER HYPERBARIC OXYGEN THERAPY SCREENING 1. Is the patient diabetic? (If No, skip to question 5) Yes 2. Does the patient have a lower extremity wound? Yes 3. Is there exposed/involved tendon or bone? 4. Has the wound been present for 30 days? Yes If Yes to ALL questions above, [facility] 5. Has the patient been diagnosed with osteomyelitis? No 6. Has the patient had a previous skin graft or flap at the wound? No 7. Has the patient had or been offered vascular intervention/evaluation? No 8. Does the patient have a wound at an amputation site? Yes 9. Has the patient had radiation therapy at the site of the problem? No If Yes to ANY of questions 5-9, consult the [facility] Shelley Kenny RN/kwesi [facility] 03-29-2024 Instructions Shelley Kenny RN - 03/29/2024 10:44 AM EDT WOUND CARE INSTRUCTIONS- Shade Brambila Wound location: Bilateral Lower Leg Wounds - Gather supplies - Place down a clean work surface such as new paper towel or newly cleaned towel. - Clean all metal instruments with rubbing alcohol before and after each use. - Plastic garbage bag for old dressing - Wash your hands with soap and water before and after wound care. Wash your foot with dial soap and water. Dry well between the toes. Bilateral Lower Extremity Wound Care: Wash wounds with: Vashe Apply to wound bed: Medihoney gel, Adaptic, Calcium Alginate Ag Cover wounds with: 4x4 [place] SAPs, cover the wound on the right anterior lower leg with a 2x2 border guaze Other: change dressings daily, moisturize lower legs with vaseline daily - Apply circaid wraps. Apply compression first thing in the morning. OK to remove compression at bedtime. Compression must be removed if: it becomes wet or soiled If you have numbness or tingling in your foot or toes If you have increased pain If toes become cold or discolored - Avoid sitting with legs in a dependent position or standing for long periods of time. - Attempt to lay flat and elevate your legs above the level of your heart 2-3 times daily, for 30 minutes at a time. - Be sure to continue walking and/or calf pumps and exercises to mimic writing the alphabet with your foot, as instructed Foot care Many people with diabetes lose the feeling in their feet (neuropathy). Therefore, they might not know they have an injury that can lead to serious problems, such as foot removal (amputation). By taking care of your feet, most serious problems can be prevented. If you have problems checking your own feet, have a family member or friend help you. Easy steps to protect your feet: Check your feet every day for: dry or cracked skin, cuts, open sores, blisters, redness, swelling, corns, calluses, or toenail problems. Use a mirror if necessary. Report any problems to your doctor. Keep your feet clean and dry, especially between the toes. If your feet are dry or cracked use a moisturizing lotion at least daily but never between the toes. See your judicial clerk every three months for foot and nail care. Don't go barefoot. Wear shoes or slippers at all times. Wear comfortable shoes that fit well. Check inside your shoes for foreign objects or rough spots before putting on shoes. Always wear socks. Avoid using anything hot, such as heating pads, hot water bottles, hot tubs, or bath water. Check the temperature of bath water with your elbow not your foot. Take your shoes and socks off at every office visit to remind your doctor to check your feet. Also, never tape a dressing directly to the skin on your legs or feet. Instead, use a self-adherent bandage to avoid injuring the skin on your lower extremities If calluses form they can cause wound ulcers to appear under the callus, must be seen by [employer] every three months to prevent. Maintain controlled blood sugar, if blood sugar is consistently above 200 this can delay wound healing and aggravate neuropathy. - Control your sodium intake as instructed by provider To give your wound the best chance to heal: - Eat three balanced meals daily focusing on the protein - Control your blood sugar. Keep blood sugar less than 200 - Complete your wound care instructions as ordered - Vitamin C 500 mg twice daily - Multiple Vitamin Daily - Drink a protein shake daily - Premiere Clear or Glucerna for Diabetic patients, Nepro for renal patients and premiere for non-renal and non-diabetic patients Report any of the following signs and symptoms of infection to the Wound Center at [phone] or go to the Emergency Department: Fever or chills Increased drainage Green or yellow drainage Foul odor Increased pain Hardness around the wound Redness, warmth or swelling of the surrounding tissue Color change to the wound Evenings / Weekends / Holidays If you call the wound center at the phone number provided above, please leave a detailed message that includes your full name, birthday, and phone number. We are seeing patients during the day, so we will return your call within a 24-48 hr period in the order your call was received. There is not an on-call provider assigned to the wound center. If you have an emergency that needs to be addressed, please go to an Urgent Care or Emergency Room. Thank you for your cooperation and understanding. Due to the cold and flu season approaching us, if you have any symptoms such as a cough, fever, chills, nausea, vomiting, diarrhea, and/or body aches, please call and reschedule your appointment in the Wound Center. PLAN/ORDERS: Follow-up in the Wound Center with Dr Eric DPM in 2 weeks: 04/12/24 @ 11am Prescription for Medihoney gel sent to your pharmacy PVR scheduled for March 30, 2024 Continue aggressive nutritional support to assist wound healing, focusing on increasing protein intake. Wound care supplies were ordered through [facility]. , please call monthly for additional supplies at the phone number provided: . Dr. Berny Reyes DPM/tr/kwesi documented in this encounter [facility] 03-29-2024 Nurse Note Nursing Documentation Pertinent Medical History: DM2, HTN, venous insufficiency, & heart failure Wound Etiology according to patient: leg swelling & wounds February 2024 Pt had right great toe amputation June 18, 2023 Patient arrived via: Ambulatory with [facility] Care AQS/Nursing Facility: N/A Consent captured for debridement per Dr. Alfredo Moore DPM and linda until March 2024 Consent captured for debridement per Dr. Berny Reyes, PABLITO and good until 2024 Consent captured for debridement per Dr. Hu Pickard, PABLITO and good until September 2024 Anticoagulant Therapy: ASA 81mg ACTIVE CARE PER PROVIDER: Giovanni Bolanos DPM, Hu Pickard DPM, & Alfredo Moore DPM WOUND # 1 -22 previously closed WOUND # 24, 25 previously closed WOUND # 27 LOCATION: Right dorsal Foot - intact bulla on arrival - new 11/26/22 Blister dry, intact closed skin 12/03/22, closed 12/07/22 WOUND # 26 - LOCATION: Right Great Toe - Hallux Lateral- (new 11/10/22) - closed 01/15/23, remains closed 01-28-2023 WOUND # 23 - LOCATION: Right 2nd Toe AMP Site CLOSED 03/18/23 WOUND # 28 LOCATION: Right 1st/2nd Toe Amp Site - (NEW 06/18/23) Closed 07/27/23 WOUND # 30 LOCATION: Right lateral posterior lower leg (09/16/23) closed 09/30/23 WOUND # 29 LOCATION: Right 3rd Toe Tuft (NEW 07/27/23) WOUND # 34 LOCATION: Right Distal Medial Lower Leg-CLOSED 03/13/24 (February 2024) CLOSED 03/13/24, closed 03/29/24 Application Dates: Grafts are complete 01/07/2023 Apligraf 01/15/2023 Apligraf 01/21/2023 Apligraf 01/27/2023 Apligraf 02/04/2023 Apligraf WOUND ASSESSMENT: Refer to Provider's Wound Assessment Note VASCULAR ASSESSMENT BY PROVIDER: See provider wound assessment note CHF History: Yes as of February 2022, Dr. Sadler in Cardiology EDEMA: Right Foot: trace Right Ankle: 1+ pitting Right Calf: 1+ pitting Left Foot: 1+ pitting Left Ankle: 1+ pitting Left Calf: 1+ pitting Other: N/A MEASUREMENTS: in cm Right Calf: 31.4 Right Ankle: 20.5 Left Calf: 30.5 Left Ankle: 20.4 Length: 43.0 WOUND PHOTOGRAPHY: NO (last taken 03/13/24) DEBRIDEMENT PROCEDURE BY PROVIDER: Anesthetic Used: Insensate Other procedure: n/a Specimen collected:n/a WOUND TREATMENT PER MD ORDER: Wounds cleansed by mechanical debridement to allow provider to visualize wound base WOUND # 31 LOCATION: Left Anterior Lower Leg (February 2024) L: 1.5 cm x W: 1.5 cm x D: 0.1 cm Cleansed with: Vashe Applied to naya-wound skin: skin prep, vaseline Applied to wound bed: medihoney gel, Adaptic, Calcium Alginate Ag Covered and secured with: 4x4 [place] SAP Other: WOUND # 32 LOCATION: Left Posterior Lower Leg Cluster (February 2024) L: 3.7 cm x W: 2.4 cm x D: 0.1 cm Cleansed with: Vashe Applied to naya-wound skin: skin prep, vaseline Applied to wound bed: medihoney gel, Adaptic, Calcium Alginate Ag Covered and secured with: 4x4 [place] SAP Other: WOUND # 33 LOCATION: Right Medial Lower Leg-CLUSTER (February 2024) L: 4.8 cm x W: 4.1 cm x D: 0.1 cm - 50% debrided Cleansed with: Vashe Applied to naya-wound skin: skin prep, vaseline Applied to wound bed: medihoney gel, Adaptic, Calcium Alginate Ag Covered and secured with: 6x7 SAP EXCEL Other: WOUND # 35 LOCATION: Right Posterior Lower Leg (February 2024) Closed 03/29/24 COMPRESSION: Patient own Jobst Farrow wraps SPECIAL NEEDS: Coordination of care N/A Emotional support N/A OR set-up N/A Yarn Examiner N/A Incontinence needs N/A DME company: ordered 03/01/24 (supplies and Farrow wraps) DISCHARGED in stable condition to: ambulatory with cane PLAN/ORDERS: Follow-up in the Wound Center with Dr Eric DPM in 2 weeks: 04/12/24 @ 11am Prescription for Medihoney gel sent to your pharmacy PVR scheduled for March 30, 2024 Continue aggressive nutritional support to assist wound healing, focusing on increasing protein intake. Wound care supplies were ordered through [facility]. , please call monthly for additional supplies at the phone number provided: . EDUCATION: Dr. Reyes discussed with patient the need for better blood sugar control to help with wound healing; will add Medihoney gel to the wound care which patient still has some at home. The patient/family was instructed how to cleanse the wound(s). Visual demonstration on how to apply the dressing with teach back method. Signs & symptoms of infection were reviewed: Increased redness, swelling, pain, green/yellow drainage, fever and/or chills would all need to be evaluated by a Physician. Patient received typed home-going wound care instructions and has expressed intent to comply. OTHER EDUCATION: Reviewed new wound care and how to apply new Farrow wraps; discussed blood sugar control and adding a snack at bedtime to help prevent low blood sugar readings first thing in the morning. Education performed regarding lymphedema/edema: Elevation of extremity above the heart for 30 minutes three times daily and as needed Exercise such as writing the ABC's with your toes in the air, walking and/or calf pumps Wearing compression as ordered by provider Diet controlling of sodium as instructed by provider Use of medication to help control edema. UNIVERSAL PROTOCOL / SAFETY CHECKLIST - Procedure to be Performed sharp debridement of lower leg wounds Sign In: 1121 A Moment of CARE was completed. Personnel directly involved with the procedure wore the appropriate PPE (Personal Protective Equipment). Patient/Surrogate Stated/Verified: PATIENT VERIFIED(optional for EMERGENT procedures): Patient name, Date of , Relevant allergies, and The intended procedure Time Out Communication: 1121 Intended patient and procedure match the source documents. Consent documented and matches the intended procedure. No relevant labs, photos, and/or imaging studies were applicable for review. Sign Out: 1130 SIGN OUT (optional for EMERGENT procedures): All instruments, equipment, possible retained foreign bodies accounted for. Shelley Kenny RN/kwesi Current HBOT Status: Active or Complete - see screening below WOUND CENTER HYPERBARIC OXYGEN THERAPY SCREENING 1. Is the patient diabetic? (If No, skip to question 5) Yes 2. Does the patient have a lower extremity wound? Yes 3. Is there exposed/involved tendon or bone? 4. Has the wound been present for 30 days? Yes If Yes to ALL questions above, consult the [facility]ic Center 5. Has the patient been diagnosed with osteomyelitis? No 6. Has the patient had a previous skin graft or flap at the wound? No 7. Has the patient had or been offered vascular intervention/evaluation? No 8. Does the patient have a wound at an amputation site? Yes 9. Has the patient had radiation therapy at the site of the problem? No If Yes to ANY of questions 5-9, consult the [facility] Center Shelley Kenny RN/kwesi documented in this encounter [facility] 03-20-2024 Telephone encounter Note PT order, office visit notes and face sheet with insurance information faxed to [facility]. Confirmation received. PT order from August 2023, does not till August 2024. [facility] 03-20-2024 Miscellaneous Notes PT order, office visit notes and face sheet with insurance information faxed to [facility]. Confirmation received. PT order from August 2023, does not till August 2024. Shade is calling Eldon Gill DO today with concern regarding Orders (Physical Therapy Order Balance/[facility] FAX [phone]) Patient has been identified by name and birthdate. Duration of symptoms: N/A Person calling: [facility] Was an appointment scheduled: No Closing statement: Results or non-symptom based questions: Thank you for calling [facility], your call will be returned within the next business day. Pari Farris documented in this encounter [facility] 03-20-2024 Telephone encounter Note Shade is calling Eldon Gill DO today with concern regarding Orders (Physical Therapy Order Balance/[place] FAX [phone]) Patient has been identified by name and birthdate. Duration of symptoms: N/A Person calling: [facility] Was an appointment scheduled: No Closing statement: Results or non-symptom based questions: Thank you for calling [facility], your call will be returned within the next business day. Pari Farris [facility] 03-16-2024 Telephone encounter Note Prescription Refill Information The patient has been identified by name and date of : Yes Caregiver verified no other encounters exist for this prescription request: Yes Caregiver confirmed with patient/requestor that no other refills are due, in the near future, with this provider at this time: Yes The last office visit in the department: 06/14/2023 Does the patient have a future office visit with this provider/department: Yes Requested Prescriptions Pending Prescriptions Disp Refills ACCU-CHEK JOSE PLUS TEST STRP test strip [Pharmacy Med Name: ACCU-CHEK JOSE PLUS TEST STRP] 300 Strip 1 Sig: USE TO TEST BLOOD GLUCOSE 3 TIMES DAILY Rimma Laws MA March 16, 2024 1:24 PM [facility] 03-16-2024 Miscellaneous Notes Prescription Refill Information The patient has been identified by name and date of : Yes Caregiver verified no other encounters exist for this prescription request: Yes Caregiver confirmed with patient/requestor that no other refills are due, in the near future, with this provider at this time: Yes The last office visit in the department: 06/14/2023 Does the patient have a future office visit with this provider/department: Yes Requested Prescriptions Pending Prescriptions Disp Refills ACCU-CHEK JOSE PLUS TEST STRP test strip [Pharmacy Med Name: ACCU-CHEK JOSE PLUS TEST STRP] 300 Strip 1 Sig: USE TO TEST BLOOD GLUCOSE 3 TIMES DAILY Rimma Laws MA March 16, 2024 1:24 PM documented in this encounter [facility] 03-14-2024 Note [facility] 03-14-2024 History of Presen t illness Narrative Problem list reviewed. CHIEF COMPLAINT: check B/L lower leg wounds DM II A1c 8.3 (10/07/23) DLS 02/08/24 HISTORY OF PRESENT ILLNESS: Patient previously seen by my colleague Dr Reyes. Patient relates her [facility] nurse was concerned about her drainage and redness so asked her to call for an earlier appointment. Her pain is 6/10. She relates she has had a lot of drainage from both legs. She is on lasix and has had dose adjusted. Here today for B/L lower leg wound check. She is getting new PVRs soon. She states that she has new water blisters B/L lower legs which started beginning February 2024. She has circade wraps and just got farrow wraps but has yet to start using them and forgot to bring them today to learn how to apply. She has had leg wounds before but never this many and they usually heal quickly. Denies N/V/F/C/D/SOB/CP/LP. She relates she can't feel feet well due to neuropathy. She has numbness and toe amputations. Referred by Dr. Dasilva. 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 Right 2nd toe amputation and hallux I&D 10/28/22. Hx s/p RT toe amp 3,4,5 (DOS 10/14/23) DME DM inserts 08/24/23 rx circade wraps 08/14/22 CURRENT MEDICATIONS: Percocet Oral Tablet 5-325 MG (10/27/2023) Take 1 tablet every 6 hours as needed for 4 day(s) Clindamycin HCl Oral Capsule 300 MG (11/26/2022) TAKE 1 CAPSULE BY MOUTH EVERY 8 HOURS FOR 7 DAYS. oxyCODONE-Acetaminophen Oral Tablet 5-325 MG (10/28/2022) Ketorolac Tromethamine Ophthalmic Solution 0.5 % (04/26/2023) Accu-Chek Jose Plus In Vitro Strip (09/23/2022) Sulfamethoxazole-Trimethoprim Oral Tablet 800-160 MG (06/24/2023) Atorvastatin Calcium Oral Tablet 80 MG (06/13/2023) miSOPROStol Oral Tablet 200 MCG (06/15/2023) TAKE 2 TABLETS BY MOUTH THE DAY PRIOR TO PROCEDURE AT BEDTIME WITH FOOD Fluticasone Propionate Nasal Suspension 50 MCG/ACT (12/15/2022) USE 2 SPRAYS IN EACH NOSTRIL DAILY X1 WEEK,THEN 1 SPRAY IN EACH NOSTRIL DAILY THEREAFTER NEEDED Nitrofurantoin Monohyd Macro Oral Capsule 100 MG (02/08/2023) Cephalexin Oral Capsule 500 MG (09/26/2022) Doxycycline Hyclate Oral Capsule 100 MG (11/10/2022) Fluconazole Oral Tablet 200 MG (06/24/2023) Take 1 tablet once a day for 21 day(s) Bactrim DS Oral Tablet 800-160 MG (06/24/2023) Take 1 tablet twice a day for 10 day(s) Cipro Oral Tablet 500 MG (06/11/2023) Take 1 tablet twice a day for 7 day(s) Doxycycline Hyclate Oral Tablet 100 MG (06/08/2023) Take 1 tablet twice a day for 7 day(s) Ciprofloxacin HCl Oral Tablet 500 MG (11/10/2022) Take 1 tablet twice a day for 7 day(s) Cephalexin Oral Tablet 500 MG (10/23/2022) Take 1 tablet three times a day for 7 day(s) Ofloxacin Ophthalmic Solution 0.3 % (03/30/2023) diazePAM Oral Tablet 10 MG (02/19/2022) TAKE 1 TABLET 60 MIN BEFORE TEST Atorvastatin Calcium Oral Tablet 40 MG (11/18/2022) FLUoxetine HCl Oral Capsule 40 MG (01/26/2022) Enalapril Maleate Oral Tablet 10 MG (01/26/2022) TAKE 1 TABLET BY MOUTH EVERY DAY Erythromycin Ophthalmic Ointment 5 MG/GM (02/09/2022) APPLY 1 A SMALL AMOUNT LEFT EYE 4 TIMES A DAY Atorvastatin Calcium Oral Tablet 20 MG (01/26/2022) TAKE 1 TABLET BY MOUTH EVERY DAY Spironolactone Oral Tablet 25 MG (06/15/2023) TAKE 0.5 TABLETS BY MOUTH ONCE DAILY. Jardiance Oral Tablet 25 MG (06/14/2023) TAKE 1 TABLET BY MOUTH EVERY DAY WITH BREAKFAST Furosemide Oral Tablet 40 MG (11/18/2022) HumuLIN R U-500 KwikPen Subcutaneous Solution Pen-injector 500 UNIT/ML (06/14/2023) INJECT 40 UNITS SUBCUTANEOUSLY AT BREAKFAST, 100 UNITS AT LUNCH, 80 UNITS AT SUPPER. metFORMIN HCl Oral Tablet 1000 MG (11/23/2022) TAKE 1 TABLET BY MOUTH TWICE DAILY WITH MEALS. E11.3599 ALLERGIES: Band-Aid [place] Surg Dressing Other Bandaging Tape Other PAST MEDICAL HISTORY: Podiatry History remarkable for Foot Numbness, Fungal Nails, Leg or Foot Ulcers. The patient has a past medical history of Arthritis, Depression, DM-Medication Dependent, Poor Circulation. Neuropathy High Cholesterol SURGICAL HISTORY: Hand Tonsils HOSPITALIZATIONS: None Noted SOCIAL HISTORY: Smoking Status: Never smoker; Last Reviewed: 12/08/2023 Alcohol use: social drinker No drug use Social History Reviewed (01/16/2021 11:20:18 AM EST) FAMILY HISTORY: There is a family history of Denial of any knowledge of significant family history. Denial of any knowledge of significant family history Family History Reviewed (01/16/2021 11:20:19 AM EST) REVIEW OF SYSTEMS: Psychologic: Admits to No psych symptoms. Review of systems otherwise negative PHYSICAL EXAMINATION: Vital Signs: Weight 235 lbs; Height 5 ft 8 in; BMI 35.7 03/13/2024 11:02 AM (EST) Temperature 98.6 F; Pulse Rate 100 bpm; Blood Pressure 120 / 80 mm/Hg Vascular Exam: BL Foot DP / PT pulses +2/4. 2+ edema B/L LE CFT less than 3 seconds to digits LEFT, skin temp warm to warm from proximal to distal BL Foot Dermatologic Exam: RT medial lower leg cluster wound measures 5.5x6.2x0.1cm and post debridement measures 5.6x6.4x0.1cm with 50:50 granular fibrotic base, surrounding slough, no erythema, no purulence, no probe to bone, no malodor, HEAVY serous drainage. Into level of SUBCUTANEOUS TISSUE 50% debrided/wound RT distal medial lower leg wound healed RT posterior lower leg wound predebridement measures 0.3x0.3x0.1cm and post debridement measures 0.4x0.4x0.1cm with 100% granular base post, surrounding slough, no erythema, no purulence, no probe to bone, no malodor, HEAVY serous drainage. Into level of SUBCUTANEOUS TISSUE LT anterior lower leg wound predebridement measures 1.7x1.7x0.1cm and post debridement measures 1.9x1.9x0.1cm with 50:50 granular fibrotic base, surrounding slough, no erythema, no purulence, no probe to bone, no malodor, HEAVY serous drainage. Into level of SUBCUTANEOUS TISSUE LT posterior lower leg cluster wound predebridement measures 2.2x1.5x0.1cm and post debridement measures 2.3x1.7x0.1cm with 70:30 granular fibrotic base post, surrounding slough, no erythema, no purulence, no probe to bone, no malodor, HEAVY serous drainage. Into level of SUBCUTANEOUS TISSUE LEFT foot 2nd toe tuft hyperkeratotic tissue Nails 1-5 left are thickened, elongated and discolored with subungual debris. The nails are greater than .3mm in thickness. The discoloration is yellowish in color. Innerspaces 1-4 LT are clean dry and intact. Skin texture and turgor are decreased. absent or decreased hair growth bilateral. chronic lower leg red hyperpigmentation Neurologic Exam: Comments/Other Findings: Vibratory sensations decreased LT, Protective sensations absent LT tested with 5.07 monofilament, and light, sharp, and temperature sensations intact LT. Normal Babinski test noted bl foot after testing Orthopedic Exam: Additional Orthopedic Findings: RT foot toe amputations 1,2,3,4,5 LEFT 2nd hammertoe contracture semi- rigid DIAGNOSIS: Type II diabetes mellitus with neurological manifestations Lymphedema of both lower extremities PVD (peripheral vascular disease) History of amputation of right great toe Amputated toe of right foot Hammertoe of right foot Personal history of diabetic foot ulcer Callus Diabetic ulcer of toe of left foot associated with type 2 diabetes mellitus, limited to breakdown of skin Swelling of right lower extremity Onychomycosis Venous ulcer of left lower extremity without varicose veins Ulcer of left lower extremity, limited to breakdown of skin Venous ulcer of right lower extremity without varicose veins Ulcer of right lower extremity, limited to breakdown of skin PLAN AND TREATMENT: ASSESMENT & PLAN BL Foot and Ankle and Lower extremity Exam and Evaluation carried out with a treatment plan reviewed with the patient and findings discussed with patient including alternatives, benefits, complications and risks TESTS / IMAGING / X-RAY EXAM 12/22/21 PVR RESULTS: RIGHT SIDE Resting right ankle brachial index: 1.37Right toe brachial index: 0.70Normal ankle brachial index at rest in the right leg. Normal toe brachial index at rest in the right leg. Right ankle: Normal at rest. LEFT SIDE Resting left ankle brachial index: 1.33Left toe brachial index: 0.83Normal ankle brachial index at rest in the left leg. Normal toe brachial index at rest in the left leg. Left ankle: Normal at rest. PREVIOUS Xrays taken AP MO LAT RIGHT Foot weightbearing. X-ray safety and precautions were reviewed with patient and a lead apron was applied to patient. There was noted to be normal joint spaces unless noted. No fractures or dislocations noted. No soft tissue emphysema noted. No osteopenia or sclerosis noted. tibial and fibular sesamoid excised, there is small calcified piece of fibular sesamoid bone noted to plantar lateral 1st met. RT foot amp at MTPJ 1,2,3,4,5. no lytic lesions. no soft tissue gas noted. B/L lower leg venous ulcers larger with heavy serous drainage B/L lower leg ulcers noted in exam were treated with sharp excisional debridement carried out of the wound with non selective sharp excisional debridement past the dermis into SUBCUTANEOUS level with use of curette and 15 scalpel blade. Devitalized tissue removed. We then flushed out the wound with wound wash sterile saline. Area numbed with lidocaine gel if sensate prior. see phys exam Discussed importance in offloading, proper nutrition including blood sugar control and getting enough protein and vitamins, infection prevention, proper wound care in wound healing. Also discussed detrimental impact of smoking on healing. Reviewed proper wound care with patient. To not soak wound but to clean appropriately. To watch for signs of infection both local and systemic. These were reviewed with the patient. If seen to contact office or go to ED. To continue wound care consisting of washing the wound with betadine and apply adaptic, alginate, excel SAP. circade or farrow wraps. change every day pad and protect area well ok to shower but pat dry after showering and do wound care she can wear normal tennis shoe instructed no local signs of infection Previously Rx Farrow wraps 30-40mmHg for compression Previously Rx PVR. has not had one since 2021. was normal at that time. Has new one scheduled soon. cont work with PCP for swelling control see back in 2 weeks at wound care center for B/L lower leg wounds with myself or Dr Reyes Type II diabetes mellitus with neurological manifestations 250.60 E11.49 Diagnosis Notes Drag & Drop to change diagnosis order Lymphedema of both lower extremities 457.1 I89.0 Diagnosis Notes Drag & Drop to change diagnosis order PVD (peripheral vascular disease) 443.9 I73.9 Diagnosis Notes Drag & Drop to change diagnosis order History of amputation of right great toe V49.71 Z89.411 Diagnosis Notes Drag & Drop to change diagnosis order Amputated toe of right foot 895.0 S98.131A Diagnosis Notes Drag & Drop to change diagnosis order Hammertoe of right foot 735.4 M20.41 Diagnosis Notes Drag & Drop to change diagnosis order Personal history of diabetic foot ulcer V12.29 Z86.31 Diagnosis Notes Drag & Drop to change diagnosis order Callus 700 L84 Diagnosis Notes Drag & Drop to change diagnosis order Diabetic ulcer of toe of left foot associated with type 2 diabetes mellitus, limited to breakdown of skin 250.80 E11.621 Diagnosis Notes Drag & Drop to change diagnosis order Swelling of right lower extremity 729.81 M79.89 Diagnosis Notes Drag & Drop to change diagnosis order Onychomycosis 110.1 B35.1 Diagnosis Notes Drag & Drop to change diagnosis order Venous ulcer of left lower extremity without varicose veins 459.81 I87.2 Diagnosis Notes Drag & Drop to change diagnosis order Ulcer of left lower extremity, limited to breakdown of skin 707.10 L97.921 Diagnosis Notes Drag & Drop to change diagnosis order Venous ulcer of right lower extremity without varicose veins 459.81 I87.2 Diagnosis Notes Drag & Drop to change diagnosis order Ulcer of right lower extremity, limited to breakdown of skin 707.10 L97.911 documented in this encounter [facility] 03-13-2024 Instructions Lucia Benitez RN - 03/13/2024 2:09 PM EDT WOUND CARE INSTRUCTIONS- Shade Brambila Wound location: Bilateral Lower Leg Wounds - Gather supplies - Place down a clean work surface such as new paper towel or newly cleaned towel. - Clean all metal instruments with rubbing alcohol before and after each use. - Plastic garbage bag for old dressing - Wash your hands with soap and water before and after wound care. Wash your foot with dial soap and water. Dry well between the toes. Bilateral Lower Extremity Wound Care: Wash wounds with: Vashe Apply to wound bed: Adaptic, Calcium Alginate Ag Cover wounds with: 4x4 [place] SAPs, cover the wound on the right anterior lower leg with a 2x2 border guaze Other: change dressings daily, moisturize lower legs with vaseline daily - Apply circaid wraps. Apply compression first thing in the morning. OK to remove compression at bedtime. Compression must be removed if: it becomes wet or soiled If you have numbness or tingling in your foot or toes If you have increased pain If toes become cold or discolored - Avoid sitting with legs in a dependent position or standing for long periods of time. - Attempt to lay flat and elevate your legs above the level of your heart 2-3 times daily, for 30 minutes at a time. - Be sure to continue walking and/or calf pumps and exercises to mimic writing the alphabet with your foot, as instructed - Control your sodium intake as instructed by provider To give your wound the best chance to heal: - Eat three balanced meals daily focusing on the protein - Control your blood sugar. Keep blood sugar less than 200 - Complete your wound care instructions as ordered - Vitamin C 500 mg twice daily - Multiple Vitamin Daily - Drink a protein shake daily - Premiere Clear or Glucerna for Diabetic patients, Nepro for renal patients and premiere for non-renal and non-diabetic patients Report any of the following signs and symptoms of infection to the Wound Center at [phone] or go to the Emergency Department: Fever or chills Increased drainage Green or yellow drainage Foul odor Increased pain Hardness around the wound Redness, warmth or swelling of the surrounding tissue Color change to the wound Evenings / Weekends / Holidays If you call the wound center at the phone number provided above, please leave a detailed message that includes your full name, birthday, and phone number. We are seeing patients during the day, so we will return your call within a 24-48 hr period in the order your call was received. There is not an on-call provider assigned to the wound center. If you have an emergency that needs to be addressed, please go to an Urgent Care or Emergency Room. Thank you for your cooperation and understanding. Due to the cold and flu season approaching us, if you have any symptoms such as a cough, fever, chills, nausea, vomiting, diarrhea, and/or body aches, please call and reschedule your appointment in the Wound Center. PLAN/ORDERS: Follow-up in the Wound Center with Dr Eric DPM in 2 weeks. PVR scheduled for March 30, 2024 Please bring new farrow wraps to your next visit for application and education. Labs ordered at previous visit-have drawn at any [facility] lab Continue aggressive nutritional support to assist wound healing, focusing on increasing protein intake. Wound care supplies were ordered through [facility]. , please call monthly for additional supplies at the phone number provided: . Hu Pickard DPM/SP/NH/FHM documented in this encounter [facility] 03-13-2024 Nurse Note Nursing Documentation Pertinent Medical History: DM2, HTN, venous insufficiency, & heart failure Wound Etiology according to patient: Pt had right great toe amputation June 18, 2023 Patient arrived via: Ambulatory with [facility] AQS/Nursing Facility: N/A Consent captured for debridement per Dr. Alfredo Moore DPM and linda until March 2024 Consent captured for debridement per Dr. Berny Reyes DPM and linda until March 2024 Consent captured for debridement per Dr. Hu Pickard DPM and linda until September 2024 Anticoagulant Therapy: N/A ACTIVE CARE PER PROVIDER: Giovanni HAM, Hu HAM, & Alfredo Moore DPM WOUND # 1 -22 previously closed WOUND # 24, 25 previously closed WOUND # 27 LOCATION: Right dorsal Foot - intact bulla on arrival - new 11/26/22 Blister dry, intact closed skin 12/03/22, closed 12/07/22 WOUND # 26 - LOCATION: Right Great Toe - Hallux Lateral- (new 11/10/22) - closed 01/15/23, remains closed 01-28-2023 WOUND # 23 - LOCATION: Right 2nd Toe AMP Site CLOSED 03/18/23 WOUND # 28 LOCATION: Right 1st/2nd Toe Amp Site - (NEW 06/18/23) Closed 07/27/23 WOUND # 30 LOCATION: Right lateral posterior lower leg (09/16/23) closed 09/30/23 WOUND # 29 LOCATION: Right 3rd Toe Tuft (NEW 07/27/23) Application Dates: Grafts are complete 01/07/2023 Apligraf 01/15/2023 Apligraf 01/21/2023 Apligraf 01/27/2023 Apligraf 02/04/2023 Apligraf WOUND ASSESSMENT: Refer to Provider's Wound Assessment Note VASCULAR ASSESSMENT BY PROVIDER: See provider wound assessment note CHF History: Yes as of February 2022, Dr. Sadler in Cardiology EDEMA: Right Foot: 1+ Right Ankle: 1+ pitting Right Calf: 3+ pitting Left Foot: 1+ Left Ankle: general Left Calf: 3+ pitting Other: N/A MEASUREMENTS: in cm Right Calf: 36.5 Right Ankle: 21.6 Left Calf: 34.5 Left Ankle: 20.6 Length: 43.0 Not Measured 03/13/24 WOUND PHOTOGRAPHY: Yes x 4 (last taken 03/13/24) DEBRIDEMENT PROCEDURE BY PROVIDER: Anesthetic Used: Insensate Other procedure: n/a Specimen collected:n/a WOUND TREATMENT PER MD ORDER: Wounds cleansed by mechanical debridement to allow provider to visualize wound base WOUND # 31 LOCATION: Left Anterior Lower Leg L: 1.9 cm x W: 1.9 cm x D: 0.1 cm Cleansed with: Vashe Applied to naya-wound skin: skin prep, vaseline Applied to wound bed: Adaptic, Calcium Alginate Ag Covered and secured with: 4x4 [place] SAP Other: WOUND # 32 LOCATION: Left Posterior Lower Leg Cluster L: 2.3 cm x W: 1.7 cm x D: 0.1 cm Cleansed with: Vashe Applied to naya-wound skin: skin prep, vaseline Applied to wound bed: Adaptic, Calcium Alginate Ag Covered and secured with: 4x4 [place] SAP Other: WOUND # 33 LOCATION: Right Medial Lower Leg-CLUSTER L: 3.6 cm x W: 6.4 cm x D: 0.1 cm Cleansed with: Vashe Applied to naya-wound skin: skin prep, vaseline Applied to wound bed: Adaptic, Calcium Alginate Ag Covered and secured with: 6x7 SAP EXCEL Other: WOUND # 34 LOCATION: Right Distal Medial Lower Leg-CLOSED 03/13/24 Cleansed with: normal saline Applied to naya-wound skin: vaseline WOUND # 35 LOCATION: Right Posterior Lower Leg L: 0.4 cm x W: 0.4 cm x D: 0.1 cm Cleansed with: Vashe Applied to naya-wound skin: skin prep, vaseline Applied to wound bed: Adaptic, Calcium Alginate Ag Covered and secured with: 6x7 [place] SAP Other: SAP covered both the posterior and medial wound COMPRESSION: Patient own Circaid wraps SPECIAL NEEDS: Coordination of care N/A Emotional support N/A OR set-up N/A Yarn Examiner N/A Incontinence needs N/A DME company: ordered 03/01/24 (supplies and Farrow wraps) DISCHARGED in stable condition to: ambulatory with cane PLAN/ORDERS: EDUCATION: The patient/family was instructed how to cleanse the wound(s). Visual demonstration on how to apply the dressing with teach back method. Signs & symptoms of infection were reviewed: Increased redness, swelling, pain, green/yellow drainage, fever and/or chills would all need to be evaluated by a Physician. Patient received typed home-going wound care instructions and has expressed intent to comply. OTHER EDUCATION: Pt instructed to bring Farrow wraps to next visit. Education performed regarding lymphedema/edema: Elevation of extremity above the heart for 30 minutes three times daily and as needed Exercise such as writing the ABC's with your toes in the air, walking and/or calf pumps Wearing compression as ordered by provider Diet controlling of sodium as instructed by provider Use of medication to help control edema. UNIVERSAL PROTOCOL / SAFETY CHECKLIST - Procedure to be Performed sharp debridement of right third toe wound Sign In: 9495 A Moment of CARE was completed. Personnel directly involved with the procedure wore the appropriate PPE (Personal Protective Equipment). Patient/Surrogate Stated/Verified: PATIENT VERIFIED(optional for EMERGENT procedures): Patient name, Date of , Relevant allergies, and The intended procedure Time Out Communication: 1422 Intended patient and procedure match the source documents. Consent documented and matches the intended procedure. No relevant labs, photos, and/or imaging studies were applicable for review. Sign Out: 1425 SIGN OUT (optional for EMERGENT procedures): All instruments, equipment, possible retained foreign bodies accounted for. Current HBOT Status: Active or Complete - see screening below WOUND CENTER HYPERBARIC OXYGEN THERAPY SCREENING 1. Is the patient diabetic? (If No, skip to question 5) Yes 2. Does the patient have a lower extremity wound? Yes 3. Is there exposed/involved tendon or bone? 4. Has the wound been present for 30 days? Yes If Yes to ALL questions above, consult the Hyperbaric Center 5. Has the patient been diagnosed with osteomyelitis? No 6. Has the patient had a previous skin graft or flap at the wound? No 7. Has the patient had or been offered vascular intervention/evaluation? No 8. Does the patient have a wound at an amputation site? Yes 9. Has the patient had radiation therapy at the site of the problem? No If Yes to ANY of questions 5-9, [facility] Lucia Benitez RN/SP/NH [facility] 03-13-2024 Nurse Note Nursing Documentation Pertinent Medical History: DM2, HTN, venous insufficiency, & heart failure Wound Etiology according to patient: Pt had right great toe amputation June 18, 2023 Patient arrived via: Ambulatory with [facility] Care Company/Nursing Facility: N/A Consent captured for debridement per Dr. Alfredo Moore DPM and linda until March 2024 Consent captured for debridement per Dr. Berny Reyes DPM and linda until March 2024 Consent captured for debridement per Dr. Hu Pickard DPM and linda until September 2024 Anticoagulant Therapy: N/A ACTIVE CARE PER PROVIDER: Giovanni Bolanos DPM, Hu Pickard DPM, & Alfredo Moore DPM WOUND # 1 -22 previously closed WOUND # 24, 25 previously closed WOUND # 27 LOCATION: Right dorsal Foot - intact bulla on arrival - new 11/26/22 Blister dry, intact closed skin 12/03/22, closed 12/07/22 WOUND # 26 - LOCATION: Right Great Toe - Hallux Lateral- (new 11/10/22) - closed 01/15/23, remains closed 01-28-2023 WOUND # 23 - LOCATION: Right 2nd Toe AMP Site CLOSED 03/18/23 WOUND # 28 LOCATION: Right 1st/2nd Toe Amp Site - (NEW 06/18/23) Closed 07/27/23 WOUND # 30 LOCATION: Right lateral posterior lower leg (09/16/23) closed 09/30/23 WOUND # 29 LOCATION: Right 3rd Toe Tuft (NEW 07/27/23) Application Dates: Grafts are complete 01/07/2023 Apligraf 01/15/2023 Apligraf 01/21/2023 Apligraf 01/27/2023 Apligraf 02/04/2023 Apligraf WOUND ASSESSMENT: Refer to Provider's Wound Assessment Note VASCULAR ASSESSMENT BY PROVIDER: See provider wound assessment note CHF History: Yes as of February 2022, Dr. Sadler in Cardiology EDEMA: Right Foot: 1+ Right Ankle: 1+ pitting Right Calf: 3+ pitting Left Foot: 1+ Left Ankle: general Left Calf: 3+ pitting Other: N/A MEASUREMENTS: in cm Right Calf: 36.5 Right Ankle: 21.6 Left Calf: 34.5 Left Ankle: 20.6 Length: 43.0 Not Measured 03/13/24 WOUND PHOTOGRAPHY: Yes x 4 (last taken 03/13/24) DEBRIDEMENT PROCEDURE BY PROVIDER: Anesthetic Used: Insensate Other procedure: n/a Specimen collected:n/a WOUND TREATMENT PER MD ORDER: Wounds cleansed by mechanical debridement to allow provider to visualize wound base WOUND # 31 LOCATION: Left Anterior Lower Leg L: 1.9 cm x W: 1.9 cm x D: 0.1 cm Cleansed with: Vashe Applied to naya-wound skin: skin prep, vaseline Applied to wound bed: Adaptic, Calcium Alginate Ag Covered and secured with: 4x4 [place] SAP Other: WOUND # 32 LOCATION: Left Posterior Lower Leg Cluster L: 2.3 cm x W: 1.7 cm x D: 0.1 cm Cleansed with: Vashe Applied to naya-wound skin: skin prep, vaseline Applied to wound bed: Adaptic, Calcium Alginate Ag Covered and secured with: 4x4 [place] SAP Other: WOUND # 33 LOCATION: Right Medial Lower Leg-CLUSTER L: 3.6 cm x W: 6.4 cm x D: 0.1 cm Cleansed with: Vashe Applied to naya-wound skin: skin prep, vaseline Applied to wound bed: Adaptic, Calcium Alginate Ag Covered and secured with: 6x7 SAP EXCEL Other: WOUND # 34 LOCATION: Right Distal Medial Lower Leg-CLOSED 03/13/24 Cleansed with: normal saline Applied to naya-wound skin: vaseline WOUND # 35 LOCATION: Right Posterior Lower Leg L: 0.4 cm x W: 0.4 cm x D: 0.1 cm Cleansed with: Vashe Applied to naya-wound skin: skin prep, vaseline Applied to wound bed: Adaptic, Calcium Alginate Ag Covered and secured with: 6x7 [place] SAP Other: SAP covered both the posterior and medial wound COMPRESSION: Patient own Circaid wraps SPECIAL NEEDS: Coordination of care N/A Emotional support N/A OR set-up N/A Yarn Examiner N/A Incontinence needs N/A [employer] company: ordered 03/01/24 (supplies and Farrow wraps) DISCHARGED in stable condition to: ambulatory with cane PLAN/ORDERS: EDUCATION: The patient/family was instructed how to cleanse the wound(s). Visual demonstration on how to apply the dressing with teach back method. Signs & symptoms of infection were reviewed: Increased redness, swelling, pain, green/yellow drainage, fever and/or chills would all need to be evaluated by a Physician. Patient received typed home-going wound care instructions and has expressed intent to comply. OTHER EDUCATION: Pt instructed to bring Farrow wraps to next visit. Education performed regarding lymphedema/edema: Elevation of extremity above the heart for 30 minutes three times daily and as needed Exercise such as writing the ABC's with your toes in the air, walking and/or calf pumps Wearing compression as ordered by provider Diet controlling of sodium as instructed by provider Use of medication to help control edema. UNIVERSAL PROTOCOL / SAFETY CHECKLIST - Procedure to be Performed sharp debridement of right third toe wound Sign In: 1422 A Moment of CARE was completed. Personnel directly involved with the procedure wore the appropriate PPE (Personal Protective Equipment). Patient/Surrogate Stated/Verified: PATIENT VERIFIED(optional for EMERGENT procedures): Patient name, Date of , Relevant allergies, and The intended procedure Time Out Communication: 7328 Intended patient and procedure match the source documents. Consent documented and matches the intended procedure. No relevant labs, photos, and/or imaging studies were applicable for review. Sign Out: 2579 SIGN OUT (optional for EMERGENT procedures): All instruments, equipment, possible retained foreign bodies accounted for. Current HBOT Status: Active or Complete - see screening below WOUND CENTER HYPERBARIC OXYGEN THERAPY SCREENING 1. Is the patient diabetic? (If No, skip to question 5) Yes 2. Does the patient have a lower extremity wound? Yes 3. Is there exposed/involved tendon or bone? 4. Has the wound been present for 30 days? Yes If Yes to ALL questions above, consult the Hyperbaric Center 5. Has the patient been diagnosed with osteomyelitis? No 6. Has the patient had a previous skin graft or flap at the wound? No 7. Has the patient had or been offered vascular intervention/evaluation? No 8. Does the patient have a wound at an amputation site? Yes 9. Has the patient had radiation therapy at the site of the problem? No If Yes to ANY of questions 5-9, consult the Hyperbaric Center Lucia Benitez RN/SP/NH documented in this encounter [facility] 03-13-2024 Telephone encounter Note Pt called and left message on VM to report symptoms. Called and spoke with patient directly. Pt states that she saw Shanel Newell CNP last week and she was edematous on examination and was instructed to take an additional Lasix daily for up to 3 days. Pt states that she did take the additional Lasix as instructed. She states that the edema improved however, she is not feeling well. She states that she has open wounds on her legs and they have been draining fluid and she assumes it is from the increased fluid in her legs however, she is worried about a developing cellulitis. Pt reports that her air conditioning went out on Wednesday and she has not been feeling well. She states that she cannot lay down because she feels as if she is going to vomit. She denies orthopnea. She states that she feels hot due to no AC. She denies fever or chills. Discussed that HF symptoms seem to have improved with additional PO Lasix. She was offered an appointment to be seen to assess edema but, she is focused on care for the open wounds that are draining. Instructed patient to call Wound Center and if she needs an appointment in HF Clinic, to call back and she can be seen today. Li Larkin APRN.DEBORAH [facility] Work Phone: 03-13-2024 Miscellaneous Notes Pt called and left message on VM to report symptoms. Called and spoke with patient directly. Pt states that she saw Shanel Newell CNP last week and she was edematous on examination and was instructed to take an additional Lasix daily for up to 3 days. Pt states that she did take the additional Lasix as instructed. She states that the edema improved however, she is not feeling well. She states that she has open wounds on her legs and they have been draining fluid and she assumes it is from the increased fluid in her legs however, she is worried about a developing cellulitis. Pt reports that her air conditioning went out on Wednesday and she has not been feeling well. She states that she cannot lay down because she feels as if she is going to vomit. She denies orthopnea. She states that she feels hot due to no AC. She denies fever or chills. Discussed that HF symptoms seem to have improved with additional PO Lasix. She was offered an appointment to be seen to assess edema but, she is focused on care for the open wounds that are draining. Instructed patient to call Wound Center and if she needs an appointment in HF Clinic, to call back and she can be seen today. Li Larkin APRN.DEBORAH documented in this encounter [facility] 03-06-2024 Instructions Shanel Newell APRN.CNP - 03/06/2024 3:36 PM EDT It was great to see you today, as we discussed: 1. You appear to be holding on to some extra fluid for which I would like for you to take your Lasix for 2-3 days. 2. Start monitoring your weight daily at home to help identify when you are holding on to fluid. If you gain 3 lbs in 1-3 days you should take a dose of lasix 3. Follow up with Ayan in the heart failure clinic in June and with Dr. Sadler in 6 months or sooner if need arises documented in this encounter [facility] 03-06-2024 History of Presen t illness Narrative Images from the original note were not included. [facility] [place] [facility] Department of Cardiovascular Medicine SECTION OF CLINICAL CARDIOLOGY OUTPATIENT VISIT DATE March 06, 2024 OUTPATIENT VISIT TYPE ESTABLISHED PRIMARY CARE PHYSICIAN: Eldon Gill [address] [place] [address] / [place] [address] CHIEF COMPLAINT: 3 month follow up HISTORY OF PRESENT ILLNESS: Ms. Brambila is a 63 year old female with history of chronic HFpEF, HTN, HLD, peripheral vascular disease, NELLY, and diabetes mellitus type 2 who presents today for a cardiovascular medicine follow-up visit. She was last seen in the office by Dr. Sadler on 12/01/2023 following recent emergency department visit in which she was found to have dramatically elevated BNP in the 5000's with shortness of breath that improved with IV Lasix. At that time she was encouraged to continue Lasix 20 mg daily with follow-up with the CHF clinic in 1 to 2 weeks thereafter to assess fluid status. She was additionally noted to be hypertensive for which her enalapril dose was increased to 20 mg daily. She was seen by the CHF clinic on 12/17/2023 at which time she appeared to be euvolemic and her Lasix dosing was returned to her baseline as needed. She has had no hospitalizations or procedures since her last office visit. She does not feel as though she has been holding onto any extra fluid. She has not been weighing herself daily at home. She has been following with the wound center as she has 4 sores on her legs and is scheduled to have some vascular testing in the upcoming future. She is not monitoring her blood pressure at home. She continues to not use her CPAP as she struggles with feeling claustrophobic with it on. She denies any shortness of breath, chest pain, lower extremity edema, orthopnea, PND, lightheadedness, dizziness, syncope, or syncope. Subjective PAST MEDICAL HISTORY Diagnosis Date Charcot left foot due to diabetes mellitus (HCC) 05/2013 subsequent to left foot fracture Congestive heart failure (HCC) Depression Diabetes (HCC) Diabetic ulcer of posterior right heel (HCC) 02/06/2020 Endometrial cancer (HCC) Foot fracture, left 05/2013 Charcot neuroarthropathy HTN (hypertension) Obesity NELLY (obstructive sleep apnea) Renal disorder on vasotec to protect kidneys rt diabetes since 1998. Vitamin D deficiency 01/05/2017 PAST SURGICAL HISTORY Procedure Laterality Date AMPUTATION TOE,MT-P JT Right 07/2022 Hallux DILATION & CURETTAGE DX&/THER NONOBSTETRIC x3 EXTENSIVE HAND SURGERY Dupuytren contracture TONSILLECTOMY HX Social History Tobacco Use Smoking status: Never Passive exposure: Never Smokeless tobacco: Never Vaping Use Vaping Use: Never used Substance Use Topics Alcohol use: Yes Comment: Occ - 3 glasses of wine a year Drug use: No FAMILY HISTORY Problem Relation Age of Onset Hypertension Mother other (polycystic kidney disease) Mother Heart Father CHF Hypertension Father Diabetes Brother other (testicular cancer) Brother Coronary Artery Disease Brother MD and at age 45 other (CHF) Paternal Grandmother Cancer Paternal Aunt breast [place] ALLERGIES: ALLERGIES Allergen Reactions Amoxicillin Unknown Patient does not remember reaction Codeine Intolerance Patient states Makes her Hyper Morphine Intolerance Difficulty waking up / groggy MEDICATIONS: enalapril (VASOTEC) 20 mg tablet^Take 0.5 tablets by mouth two times a day.^Disp: ^Rfl: atorvastatin (LIPITOR) 80 mg tablet^take 1 tablet by mouth every day^Disp: 90 tablet^Rfl: 3 furosemide (LASIX) 20 mg tablet^Take 20 mg by mouth once daily. take 20mg as needed for swelling^Disp: ^Rfl: metFORMIN (GLUCOPHAGE) 1,000 mg tablet^TAKE 1 TABLET BY MOUTH TWICE DAILY WITH MEALS. E11.3599^Disp: 180 tablet^Rfl: 3 ascorbic acid (VITAMIN C ORAL)^Take by mouth.^Disp: ^Rfl: aspirin, enteric coated (ASPIRIN, ENTERIC COATED) 81 mg EC tablet^Take 81 mg by mouth once daily.^Disp: ^Rfl: insulin regular human, CONCENTRATED 500 UNIT/ML, (HUMULIN R) 500 unit/mL (3 mL) inpn^50 units sc at breakfast, 100 units at lunch, 70 units at supper.^Disp: 42 mL^Rfl: 3 fluticasone (FLONASE) 50 mcg/actuation nasal spray^Use 2 Sprays in each nostril once daily.^Disp: 1 Each^Rfl: 3 (Patient taking differently: Use 2 Sprays in each nostril as needed.) cyanocobalamin, vitamin B-12, 1,000 mcg/mL kit^1,000 mcg by INJECTION(UNSPECIFIED PARENTERAL ROUTES) route once every month.^Disp: ^Rfl: JARDIANCE 25 mg tablet^take 1 tablet by mouth every day with breakfast^Disp: 90 tablet^Rfl: 3 (Patient taking differently: Take 25 mg by mouth daily with lunch.) CPAP/BIPAP/OTHER^New set up: Settings 5 - 15 cm H2O, suitable mask per pt preference, chin strap, head gear, humidity, tubing, lifetime supplies. G47.33 NELLY ^Disp: 1 Each^Rfl: 0 Blood Pressure Monitor^Please monitor blood pressure 1-2 hours after taking morning medications.^Disp: 1 Kit^Rfl: 0 Zinc 50 mg tab^Take 50 mg by mouth once daily.^Disp: ^Rfl: multivit,thx,calcium,iron,mins (MULTIVITAMIN AND MINERAL ORAL)^Take 1 tablet by mouth once daily.^Disp: ^Rfl: blood sugar diagnostic (ACCU-CHEK JOSE PLUS TEST STRP) test strip^USE TO TEST BLOOD GLUCOSE 3 TIMES DAILY.^Disp: 300 Strip^Rfl: 1 ibuprofen (ADVIL ORAL)^Take 3 tablets by mouth as needed.^Disp: ^Rfl: FLUoxetine (PROZAC) 40 mg capsule^Take by mouth q 24 HR.^Disp: ^Rfl: lancets (ONE TOUCH DELICA) 33 gauge^USE TO BLOOD GLUCOSE 3 TIMES DAILY. INSULIN DEPENDENT E11.3299, E11.65, Z79.4^Disp: 300 Each^Rfl: 3 insulin needles, DISPOSABLE, (BD INSULIN PEN NEEDLE UF) 31 gauge x 5/16^FOUR DAILY FOR INSULIN INJECTIONS.^Disp: 400 Each^Rfl: 1 Blood-Glucose Meter misc^Use to test blood glucose 3 times daily. Insulin Dependent E11.3299, E11.65, Z79.4^Disp: 1 Each^Rfl: 0 Cholecalciferol, Vitamin D3, 50 mcg (2,000 unit) cap^Take 1 tablet by mouth once daily. ^Disp: ^Rfl: REVIEW OF SYSTEMS: CARD: See HPI GENERAL: Negative for: Weight loss or gain, Fever and/or Chills HEENT: Negative for: Headache, Impaired Vision, Hearing Impairment, Ringing in Ears, Nosebleeds, Bleeding Gums +Glasses NECK: Negative for: Swelling, Pain, Stiffness RESPIRATORY: Negative for: Cough, Blood in Sputum, Shortness of breath, Wheezing, Apnea GASTROINTESTINAL: Negative for: Nausea, Vomiting, Diarrhea, Blood in stool, or Dark black stools MUSCULOSKELETAL: +Arthralgias NEUROLOGIC: Negative for: focal numbness/weakness, headaches, visual changes, ataxia, speech/language loss SKIN: Negative for: Rashes, Itching +Lower extremity wounds HEMATOLOGICAL/LYMPHATIC: Negative for: Easy bruising , Easy bleeding ENDOCRINE: Negative for: Heat or cold intolerance, Excessive sweating, Frequent urination, Frequent thirst Objective PHYSICAL EXAMINATION: BP 136/80 Pulse 90 Wt 106.5 kg (234 lb 12.6 oz) SpO2 97% BMI 35.70 kg/m General: Well appearing, in no acute distress. Ambulates with cance Skin: No clubbing, no cyanosis. Eyes: Extra ocular movements intact. Glasses Oropharynx: Teeth in good repair. Neck: No jugular venous distention, no carotid bruits, carotids have a normal upstroke. Lungs: Clear to auscultation bilaterally, no wheezing or rhonchi. Heart: Regular rhythm, S1, S2 normal, no S3, no S4, no heaves, no rub and no murmur. 1+ BLE edema with wraps in place . Grade 2/4 distal pulses bilaterally. Abdomen: Soft, nontender, bowel sounds normal, no bruits. Neuro: Oriented to person, place and time, alert, cooperative, gait coordinated. CARDIOVASCULAR MEDICINE TESTING: Last EKG Result Conclusion EKG Collected: 11/29/2023 3:42 PM (Preliminary result) Impression: SINUS RHYTHM WITH OCCASIONAL PREMATURE VENTRICULAR COMPLEXES AND PREMATURE ATRIAL COMPLEXES LEFT AXIS DEVIATION MODERATE VOLTAGE CRITERIA FOR LVH, MAY BE NORMAL VARIANT ( R in aVL , Derrick product ) ABNORMAL ECG Pharmacological nuclear stress test 01/05/2023: CONCLUSIONS: 1. SPECT Perfusion Study: Normal. 2. There is no scintigraphic evidence for inducible ischemia. 3. No evidence of scarred myocardium. 4. Left ventricle is normal in size. The left ventricle systolic function is normal. 5. This is a low risk scan. Gated Stress IR:3D LVEF % 70 There were no tests performed for review. PLAN AND RECOMMENDATIONS: HFpEF - NYHA Functional Class II stage C Heart Failure - Echocardiogram 02/2022: EF 55 to 60% with mild concentric LVH and normal LVDD - NT proBNP 5/7/24: 954 (Prior 11/29/23: 5,147) - Volume status managed on Lasix 20 mg PRN and Jardiance - Patient appears volume overloaded on exam. - Encouraged to monitor sodium and fluid intake as well as daily weights - Follows with CHF clinic - PRN Lasix 20 mg for 2-3 days - Daily weights strongly encouraged Essential hypertension - Optimal control on enalapril - Encouraged dietary sodium restriction/DASH diet - Reviewed risks of HTN and principles of treatment - Goal of BP <130/80 Mixed hyperlipidemia - Currently on atorvastatin 80 mg - Last lipid panel 07/2023 with LDL 103 Peripheral vascular disease - Noted venous insufficiency on ultrasound 12/22/2021 - Follows with vascular surgery, Dr. Moore Obstructive sleep apnea - PSG 05/29 with moderate NELLY likely underestimated due to low sleep efficiency and absence of REM - Not compliant on CPAP due to claustrophobia - Follows with sleep medicine CONCLUSION: Patient presents today for follow-up and appears to be doing well from a cardiac standpoint. She does not have symptoms of volume overload however her weight is up on our scale and she does have 1-2+ lower extremity edema. I have asked her to take 2 to 3 days of her as needed Lasix. She has not been weighing herself at home and I have strongly encouraged her to start doing so to prevent significant volume overload in the future. Her heart rate and blood pressure remain under favorable control. I have made no additions or changes to her medications. She should continue to actively engage in cardiovascular risk factor modification and follow up with Dr. Sadler in 6 months, or sooner should need arise. CONTACT INFORMATION: Shanel Newell APRN.CNP Cardiology Nurse Practitioner Section of Regional Cardiology [facility] Dept of Cardiovascular Medicine [facility] [place] [address] [place] [address] Office Office This note was partially generated using eMazeMe voice recognition system and may contain errors related to that system including grammar, punctuation, spelling, and words that may be inappropriate documented in this encounter [facility] 03-06-2024 Note HNO ID: [id number] Author: SHANEL NEWELL APRN.CNP Service: ? Author Type: Nurse Practitioner Type: Progress Notes Filed: 03/06/2024 15:44 Note Text: [facility] [place] [facility] Department of Cardiovascular Medicine SECTION OF CLINICAL CARDIOLOGY OUTPATIENT VISIT DATE March 06, 2024 OUTPATIENT VISIT TYPE ESTABLISHED PRIMARY CARE PHYSICIAN: Eldon Gill [address] [place] [address] / [place] [address] CHIEF COMPLAINT: 3 month follow up HISTORY OF PRESENT ILLNESS: Ms. Brambila is a 63 year old female with history of chronic HFpEF, HTN, HLD, peripheral vascular disease, NELLY, and diabetes mellitus type 2 who presents today for a cardiovascular medicine follow-up visit. She was last seen in the office by Dr. Sadler on 12/01/2023 following recent emergency department visit in which she was found to have dramatically elevated BNP in the 5000's with shortness of breath that improved with IV Lasix. At that time she was encouraged to continue Lasix 20 mg daily with follow-up with the CHF clinic in 1 to 2 weeks thereafter to assess fluid status. She was additionally noted to be hypertensive for which her enalapril dose was increased to 20 mg daily. She was seen by the CHF clinic on 12/17/2023 at which time she appeared to be euvolemic and her Lasix dosing was returned to her baseline as needed. She has had no hospitalizations or procedures since her last office visit. She does not feel as though she has been holding onto any extra fluid. She has not been weighing herself daily at home. She has been following with the wound center as she has 4 sores on her legs and is scheduled to have some vascular testing in the upcoming future. She is not monitoring her blood pressure at home. She continues to not use her CPAP as she struggles with feeling claustrophobic with it on. She denies any shortness of breath, chest pain, lower extremity edema, orthopnea, PND, lightheadedness, dizziness, syncope, or syncope. Subjective PAST MEDICAL HISTORY Diagnosis Date Charcot left foot due to diabetes mellitus (HCC) 05/2013 subsequent to left foot fracture Congestive heart failure (HCC) Depression Diabetes (HCC) Diabetic ulcer of posterior right heel (HCC) 02/06/2020 Endometrial cancer (HCC) Foot fracture, left 05/2013 Charcot neuroarthropathy HTN (hypertension) Obesity NELLY (obstructive sleep apnea) Renal disorder on vasotec to protect kidneys rt diabetes since 1998. Vitamin D deficiency 01/05/2017 PAST SURGICAL HISTORY Procedure Laterality Date AMPUTATION TOE,MT-P JT Right 07/2022 Hallux DILATION AND CURETTAGE DXAND/THER NONOBSTETRIC x3 EXTENSIVE HAND SURGERY Dupuytren contracture TONSILLECTOMY HX Social History Tobacco Use Smoking status: Never Passive exposure: Never Smokeless tobacco: Never Vaping Use Vaping Use: Never used Substance Use Topics Alcohol use: Yes Comment: Occ - 3 glasses of wine a year Drug use: No FAMILY HISTORY Problem Relation Age of Onset Hypertension Mother other (polycystic kidney disease) Mother Heart Father CHF Hypertension Father Diabetes Brother other (testicular cancer) Brother Coronary Artery Disease Brother MD and at age 45 other (CHF) Paternal Grandmother Cancer Paternal Aunt breast [place] ALLERGIES: ALLERGIES Allergen Reactions Amoxicillin Unknown Patient does not remember reaction Codeine Intolerance Patient states Makes her Hyper Morphine Intolerance Difficulty waking up / groggy MEDICATIONS: enalapril (VASOTEC) 20 mg tabletTake 0.5 tablets by mouth two times a day.Disp: Rfl: atorvastatin (LIPITOR) 80 mg tablettake 1 tablet by mouth every dayDisp: 90 tabletRfl: 3 furosemide (LASIX) 20 mg tabletTake 20 mg by mouth once daily. take 20mg as needed for swellingDisp: Rfl: metFORMIN (GLUCOPHAGE) 1,000 mg tabletTAKE 1 TABLET BY MOUTH TWICE DAILY WITH MEALS. E11.3599Disp: 180 tabletRfl: 3 ascorbic acid (VITAMIN C ORAL)Take by mouth.Disp: Rfl: aspirin, enteric coated (ASPIRIN, ENTERIC COATED) 81 mg EC tabletTake 81 mg by mouth once daily.Disp: Rfl: insulin regular human, CONCENTRATED 500 UNIT/ML, (HUMULIN R) 500 unit/mL (3 mL) inpn50 units sc at breakfast, 100 units at lunch, 70 units at supper.Disp: 42 mLRfl: 3 fluticasone (FLONASE) 50 mcg/actuation nasal sprayUse 2 Sprays in each nostril once daily.Disp: 1 EachRfl: 3 (Patient taking differently: Use 2 Sprays in each nostril as needed.) cyanocobalamin, vitamin B-12, 1,000 mcg/mL kit1,000 mcg by INJECTION(UNSPECIFIED PARENTERAL ROUTES) route once every month.Disp: Rfl: JARDIANCE 25 mg tablettake 1 tablet by mouth every day with breakfastDisp: 90 tabletRfl: 3 (Patient taking differently: Take 25 mg by mouth daily with lunch.) CPAP/BIPAP/OTHERNew set up: Settings 5 - 15 cm H2O, suitable mask per pt preference, chin strap, head gear, (more content not included)... [facility] 03-02-2024 Nurse Note Insurance does not cover supplies requested. Patient will receive automated call for pricing information [facility] 03-02-2024 Nurse Note Insurance does not cover supplies requested. Patient will receive automated call for pricing information Nursing Documentation Pertinent Medical History: DM2, HTN, venous insufficiency, & heart failure Wound Etiology according to patient: Pt had right great toe amputation June 18, 2023 Patient arrived via: Ambulatory with [facility] Care Company/Nursing Facility: N/A Consent captured for debridement per Dr. Alfredo Moore DPM and linda until March 2024 Consent captured for debridement per Dr. Berny Reyes DPM and linda until March 2024 Anticoagulant Therapy: N/A ACTIVE CARE PER PROVIDER: Giovanni HAM, Hu Pickard DPM, & Alfredo Moore DPM WOUND # 1 -22 previously closed WOUND # 24, 25 previously closed WOUND # 27 LOCATION: Right dorsal Foot - intact bulla on arrival - new 11/26/22 Blister dry, intact closed skin 12/03/22, closed 12/07/22 WOUND # 26 - LOCATION: Right Great Toe - Hallux Lateral- (new 11/10/22) - closed 01/15/23, remains closed 01-28-2023 WOUND # 23 - LOCATION: Right 2nd Toe AMP Site CLOSED 03/18/23 WOUND # 28 LOCATION: Right 1st/2nd Toe Amp Site - (NEW 06/18/23) Closed 07/27/23 WOUND # 30 LOCATION: Right lateral posterior lower leg (09/16/23) closed 09/30/23 WOUND # 29 LOCATION: Right 3rd Toe Tuft (NEW 07/27/23) Application Dates: Grafts are complete 01/07/2023 Apligraf 01/15/2023 Apligraf 01/21/2023 Apligraf 01/27/2023 Apligraf 02/04/2023 Apligraf WOUND ASSESSMENT: Refer to Provider's Wound Assessment Note VASCULAR ASSESSMENT BY PROVIDER: See provider wound assessment note CHF History: Yes as of February 2022, Dr. Sadler in Cardiology EDEMA: Right Foot: trace Right Ankle: 3+ pitting Right Calf: 3+ pitting Left Foot: trace Left Ankle: 2+ pitting Left Calf: 4+ pitting Other: N/A MEASUREMENTS: in cm Right Calf: 36.5 Right Ankle: 22.0 Left Calf: 35.6 Left Ankle: 21.9 Length: 43.0 Not Measured 03/01/24 WOUND PHOTOGRAPHY: Yes x 4 (last taken 03/01/24) DEBRIDEMENT PROCEDURE BY PROVIDER: Anesthetic Used: Insensate Other procedure: n/a Specimen collected:n/a WOUND TREATMENT PER MD ORDER: Wounds cleansed by mechanical debridement to allow provider to visualize wound base WOUND # 31 LOCATION: Left Anterior Lower Leg L: 2.0 cm x W: 2.0 cm x D: 0.1 cm Cleansed with: Vashe Applied to naya-wound skin: skin prep, vaseline Applied to wound bed: Adaptic, Calcium Alginate Ag Covered and secured with: 4x4 [place] SAP Other: WOUND # 32 LOCATION: Left Posterior Lower Leg Cluster L: 3.8 cm x W:3.4 cm x D: 0.1 cm Cleansed with: Vashe Applied to naya-wound skin: skin prep, vaseline Applied to wound bed: Adaptic, Calcium Alginate Ag Covered and secured with: 4x4 [place] SAP Other: WOUND # 33 LOCATION: Right Medial Lower Leg L: 0.7 cm x W: 0.9 cm x D: 0.1 cm Cleansed with: Vashe Applied to naya-wound skin: skin prep, vaseline Applied to wound bed: Adaptic, Calcium Alginate Ag Covered and secured with: 2x2 border guaze Other: WOUND # 34 LOCATION: Right Distal Medial Lower Leg L: 0.6 cm x W: 0.5 cm x D: 0.1 cm Cleansed with: Vashe Applied to naya-wound skin: skin prep, vaseline Applied to wound bed: Adaptic, Calcium Alginate Ag Covered and secured with: 4x4 [place] SAP Other: SAP covered both the posterior and medial wound WOUND # 35 LOCATION: Right Posterior Lower Leg L: 0.7 cm x W: 0.5 cm x D: 0.1 cm Cleansed with: Vashe Applied to naya-wound skin: skin prep, vaseline Applied to wound bed: Adaptic, Calcium Alginate Ag Covered and secured with: 4x4 [place] SAP Other: SAP covered both the posterior and medial wound COMPRESSION: TubiGrip E - double layer SPECIAL NEEDS: Coordination of care Prism order (supplies and Farrow wraps) Emotional support N/A OR set-up N/A Yarn Examiner N/A Incontinence needs N/A [facility] company: ordered 03/01/24 (supplies and Farrow wraps DISCHARGED in stable condition to: ambulatory with cane PLAN/ORDERS: Follow-up in the Wound Center with Berny Reyes DPM in 2 weeks Schedule PVR Labs ordered at today's visit Continue aggressive nutritional support to assist wound healing, focusing on increasing protein intake. [facility] Dr. Giovanni Reyes [place] Office [address] [address] Main Office [address] [facility] [address] [place] [address] EDUCATION: The patient/family was instructed how to cleanse the wound(s). Visual demonstration on how to apply the dressing with teach back method. Signs & symptoms of infection were reviewed: Increased redness, swelling, pain, green/yellow drainage, fever and/or chills would all need to be evaluated by a Physician. Patient received typed home-going wound care instructions and has expressed intent to comply. OTHER EDUCATION: Pt instructed to bring Farrow wraps to next visit. Education performed regarding lymphedema/edema: Elevation of extremity above the heart for 30 minutes three times daily and as needed Exercise such as writing the ABC's with your toes in the air, walking and/or calf pumps Wearing compression as ordered by provider Diet controlling of sodium as instructed by provider Use of medication to help control edema. UNIVERSAL PROTOCOL / SAFETY CHECKLIST - Procedure to be Performed sharp debridement of right third toe wound Sign In: 1121 A Moment of CARE was completed. Personnel directly involved with the procedure wore the appropriate PPE (Personal Protective Equipment). Patient/Surrogate Stated/Verified: PATIENT VERIFIED(optional for EMERGENT procedures): Patient name, Date of , Relevant allergies, and The intended procedure Time Out ommunication: 1122 Intended patient and procedure match the source documents. Consent documented and matches the intended procedure. No relevant labs, photos, and/or imaging studies were applicable for review. Sign Out: 1136 SIGN OUT (optional for EMERGENT procedures): All instruments, equipment, possible retained foreign bodies accounted for. Current HBOT Status: Active or Complete - see screening below WOUND CENTER HYPERBARIC OXYGEN THERAPY SCREENING 1. Is the patient diabetic? (If No, skip to question 5) Yes 2. Does the patient have a lower extremity wound? Yes 3. Is there exposed/involved tendon or bone? 4. Has the wound been present for 30 days? Yes If Yes to ALL questions above, consult the Hyperbaric Center 5. Has the patient been diagnosed with osteomyelitis? No 6. Has the patient had a previous skin graft or flap at the wound? No 7. Has the patient had or been offered vascular intervention/evaluation? No 8. Does the patient have a wound at an amputation site? Yes 9. Has the patient had radiation therapy at the site of the problem? No If Yes to ANY of questions 5-9, consult the Hyperbaric Center Leanna Harrison RN/rivka documented in this encounter [facility] 03-02-2024 Note [facility] 03-02-2024 History of Presen t illness Narrative Problem list reviewed. CHIEF COMPLAINT: B/L lower leg wounds- new nail care and callus care LT s/p RT toe amp 3,4,5 (DOS 10/14/23) s/p RT 3rd toe perc flexor tenotomy (DOS 07/26/23) DM II A1c 9.1 (down from 10.3) DLS 02/08/24 HISTORY OF PRESENT ILLNESS: Here today for B/L lower leg wound check she history of amputation of all toes right foot in October 2023. she states that she has new water blisters B/L lower legs which started a couple days ago. she has been protecting them with alginate, and wrapping legs. she has circade wraps that she recently got. she thinks the circade wraps dont fit as well as her other ones she has had in past and thinks they are too tight. she is here to address compression. she has had these wounds before but never this many and they usually heal quickly. Previous LEFT great toe wound has healed. Patient presents today for evaluation and treatment of elongated toenails 1,2,3,4,5 left. Patient has nails that are thickened and discolored. Patient is a high risk nail patient with neurologic and/or vascular risk factors. Patient is at high risk for wounds, infection, or other complications if performed by a nonprofessional. Denies N/V/F/C/D/SOB/CP/LP. She relates she can't feel feet well due to neuropathy. She has numbness and toe amputations. Referred by Dr. Dasilva. 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 Right 2nd toe amputation and hallux I&D 10/28/22. Hx s/p RT toe amp 3,4,5 (DOS 10/14/23) rx circade wraps 08/14/22 DME DM inserts 08/24/23 CURRENT MEDICATIONS: Percocet Oral Tablet 5-325 MG (10/27/2023) Take 1 tablet every 6 hours as needed for 4 day(s) Clindamycin HCl Oral Capsule 300 MG (11/26/2022) TAKE 1 CAPSULE BY MOUTH EVERY 8 HOURS FOR 7 DAYS. oxyCODONE-Acetaminophen Oral Tablet 5-325 MG (10/28/2022) Ketorolac Tromethamine Ophthalmic Solution 0.5 % (04/26/2023) Accu-Chek Jose Plus In Vitro Strip (09/23/2022) Sulfamethoxazole-Trimethoprim Oral Tablet 800-160 MG (06/24/2023) Atorvastatin Calcium Oral Tablet 80 MG (06/13/2023) miSOPROStol Oral Tablet 200 MCG (06/15/2023) TAKE 2 TABLETS BY MOUTH THE DAY PRIOR TO PROCEDURE AT BEDTIME WITH FOOD Fluticasone Propionate Nasal Suspension 50 MCG/ACT (12/15/2022) USE 2 SPRAYS IN EACH NOSTRIL DAILY X1 WEEK,THEN 1 SPRAY IN EACH NOSTRIL DAILY THEREAFTER NEEDED Nitrofurantoin Monohyd Macro Oral Capsule 100 MG (02/08/2023) Cephalexin Oral Capsule 500 MG (09/26/2022) Doxycycline Hyclate Oral Capsule 100 MG (11/10/2022) Fluconazole Oral Tablet 200 MG (06/24/2023) Take 1 tablet once a day for 21 day(s) Bactrim DS Oral Tablet 800-160 MG (06/24/2023) Take 1 tablet twice a day for 10 day(s) Cipro Oral Tablet 500 MG (06/11/2023) Take 1 tablet twice a day for 7 day(s) Doxycycline Hyclate Oral Tablet 100 MG (06/08/2023) Take 1 tablet twice a day for 7 day(s) Ciprofloxacin HCl Oral Tablet 500 MG (11/10/2022) Take 1 tablet twice a day for 7 day(s) Cephalexin Oral Tablet 500 MG (10/23/2022) Take 1 tablet three times a day for 7 day(s) Ofloxacin Ophthalmic Solution 0.3 % (03/30/2023) diazePAM Oral Tablet 10 MG (02/19/2022) TAKE 1 TABLET 60 MIN BEFORE TEST Atorvastatin Calcium Oral Tablet 40 MG (11/18/2022) FLUoxetine HCl Oral Capsule 40 MG (01/26/2022) Enalapril Maleate Oral Tablet 10 MG (01/26/2022) TAKE 1 TABLET BY MOUTH EVERY DAY Erythromycin Ophthalmic Ointment 5 MG/GM (02/09/2022) APPLY 1 A SMALL AMOUNT LEFT EYE 4 TIMES A DAY Atorvastatin Calcium Oral Tablet 20 MG (01/26/2022) TAKE 1 TABLET BY MOUTH EVERY DAY Spironolactone Oral Tablet 25 MG (06/15/2023) TAKE 0.5 TABLETS BY MOUTH ONCE DAILY. Jardiance Oral Tablet 25 MG (06/14/2023) TAKE 1 TABLET BY MOUTH EVERY DAY WITH BREAKFAST Furosemide Oral Tablet 40 MG (11/18/2022) HumuLIN R U-500 KwikPen Subcutaneous Solution Pen-injector 500 UNIT/ML (06/14/2023) INJECT 40 UNITS SUBCUTANEOUSLY AT BREAKFAST, 100 UNITS AT LUNCH, 80 UNITS AT SUPPER. metFORMIN HCl Oral Tablet 1000 MG (11/23/2022) TAKE 1 TABLET BY MOUTH TWICE DAILY WITH MEALS. E11.3599 ALLERGIES: Band-Aid [place] Surg Dressing Other Bandaging Tape Other PAST MEDICAL HISTORY: Podiatry History remarkable for Foot Numbness, Fungal Nails, Leg or Foot Ulcers. The patient has a past medical history of Arthritis, Depression, DM-Medication Dependent, Poor Circulation. Neuropathy High Cholesterol SURGICAL HISTORY: Hand Tonsils HOSPITALIZATIONS: None Noted SOCIAL HISTORY: Smoking Status: Never smoker; Last Reviewed: 12/08/2023 Alcohol use: social drinker No drug use Social History Reviewed (01/16/2021 11:20:18 AM EST) FAMILY HISTORY: There is a family history of Denial of any knowledge of significant family history. Denial of any knowledge of significant family history Family History Reviewed (01/16/2021 11:20:19 AM EST) REVIEW OF SYSTEMS: Psychologic: Admits to No psych symptoms. Review of systems otherwise negative PHYSICAL EXAMINATION: Vital Signs: Weight 235 lbs; Height 5 ft 8 in; BMI 35.7 02/28/2024 10:34 AM (EST) Temperature 98.6 F; Pulse Rate 100 bpm; Blood Pressure 120 / 80 mm/Hg Vascular Exam: BL Foot DP / PT pulses +2/4. 2+ edema B/L LE CFT less than 3 seconds to digits LEFT, skin temp warm to warm from proximal to distal BL Foot Dermatologic Exam: LT great toe wound dorsal healed RT medial lower leg wound measures 0.6x0.8xx0.1cm and post debridement measures 0.7x0.9x0.1cm with 100% granular base post, no surrounding callus, no erythema, no purulence, no probe to bone, no malodor, moderate serosanguinous drainage. Into level of SUBCUTANEOUS TISSUE RT distal medial lower leg wound measures 0.5x0.4xx0.1cm and post debridement measures 0.6x0.5x0.1cm with 100% granular base post, no surrounding callus, no erythema, no purulence, no probe to bone, no malodor, moderate serosanguinous drainage. Into level of SUBCUTANEOUS TISSUE RT posterior lower leg cluster wound measures 0.6x0.4xx0.1cm and post debridement measures 0.7x0.5x0.1cm with 100% granular base post, no surrounding callus, no erythema, no purulence, no probe to bone, no malodor, moderate serosanguinous drainage. Into level of SUBCUTANEOUS TISSUE LT anterior lower leg wound predebridement measures 1.8x1.8x0.1cm and post debridement measures 2x2x0.1cm with 100% granular base post, surrounding callus, no erythema, no purulence, no probe to bone, no malodor, moderate serosanguinous drainage. Into level of SUBCUTANEOUS TISSUE LT posterior lower leg cluster wound predebridement measures 3.6x3.2x0.1cm and post debridement measures 3.8x3.4x0.1cm with 100% granular base post, surrounding callus, no erythema, no purulence, no probe to bone, no malodor, moderate serosanguinous drainage. Into level of SUBCUTANEOUS TISSUE LEFT foot 2nd toe hyperkeratotic tissue distal tuft. no wound post debridement Nails 1-5 left are thickened, elongated and discolored with subungual debris. The nails are greater than .3mm in thickness. The discoloration is yellowish in color. Innerspaces 1-4 LT are clean dry and intact. Skin texture and turgor are decreased. absent or decreased hair growth bilateral. nail changes bilateral Neurologic Exam: Comments/Other Findings: Vibratory sensations decreased LT, Protective sensations absent LT tested with 5.07 monofilament, and light, sharp, and temperature sensations intact LT. Normal Babinski test noted bl foot after testing Orthopedic Exam: Additional Orthopedic Findings: RT foot toe amputations 1,2,3,4,5 LEFT 2nd hammertoe contracture semi- rigid DIAGNOSIS: Type II diabetes mellitus with neurological manifestations Lymphedema of both lower extremities PVD (peripheral vascular disease) History of amputation of right great toe Amputated toe of right foot Hammertoe of right foot Personal history of diabetic foot ulcer Callus Diabetic ulcer of toe of left foot associated with type 2 diabetes mellitus, limited to breakdown of skin Swelling of right lower extremity Surgical wound dehiscence Onychomycosis Skin ulcer of left great toe, limited to breakdown of skin Venous ulcer of left lower extremity without varicose veins Ulcer of left lower extremity, limited to breakdown of skin Venous ulcer of right lower extremity without varicose veins Ulcer of right lower extremity, limited to breakdown of skin PLAN AND TREATMENT: ASSESMENT & PLAN BL Foot and Ankle and Lower extremity Exam and Evaluation carried out with a treatment plan reviewed with the patient and findings discussed with patient including alternatives, benefits, complications and risks TESTS / IMAGING / X-RAY EXAM 12/22/21 PVR RESULTS: RIGHT SIDE Resting right ankle brachial index: 1.37Right toe brachial index: 0.70Normal ankle brachial index at rest in the right leg. Normal toe brachial index at rest in the right leg. Right ankle: Normal at rest. LEFT SIDE Resting left ankle brachial index: 1.33Left toe brachial index: 0.83Normal ankle brachial index at rest in the left leg. Normal toe brachial index at rest in the left leg. Left ankle: Normal at rest. PREVIOUS Xrays taken AP MO LAT RIGHT Foot weightbearing. X-ray safety and precautions were reviewed with patient and a lead apron was applied to patient. There was noted to be normal joint spaces unless noted. No fractures or dislocations noted. No soft tissue emphysema noted. No osteopenia or sclerosis noted. tibial and fibular sesamoid excised, there is small calcified piece of fibular sesamoid bone noted to plantar lateral 1st met. RT foot amp at MTPJ 1,2,3,4,5. no lytic lesions. no soft tissue gas noted. PREVIOUSLY we discussed with her RT foot toe amputations, we discussed her work situation and all of the walking involved to get into the office. 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 I do not want her walking into office daily with her being high risk for foot wounds given her level of neuropathy. she has left great toe recurrent wound however it is closed at this time. she does not have good functional capacity. TODAY NEW B/L lower leg venous ulcers from swelling B/L lower leg ulcers treated with sharp excisional debridement carried out of the wound with non selective sharp excisional debridement past the dermis into SUBCUTANEOUS level with use of curette and 15 scalpel blade. Devitalized tissue removed. We then flushed out the wound with wound wash sterile saline. Area numbed with lidocaine gel if sensate prior. see phys exam Discussed importance in offloading, proper nutrition including blood sugar control and getting enough protein and vitamins, infection prevention, proper wound care in wound healing. Also discussed detrimental impact of smoking on healing. Reviewed proper wound care with patient. To not soak wound but to clean appropriately. To watch for signs of infection both local and systemic. These were reviewed with the patient. If seen to contact office or go to ED. To continue wound care consisting of washing the wound with betadine and apply adaptic, alginate, excel SAP. circade wraps. change every day pad and protect area well ok to shower but pat dry after showering and do wound care she can wear normal tennis shoe instructed on local signs of infection Rx Farrow wraps 30-40mmHg for compression The circade wraps are not fitting well to her lower leg and sliding down. Rx PVR. has not had one since 2021. was normal at that time. see back in 2 weeks at wound care center for B/L lower leg wounds Type II diabetes mellitus with neurological manifestations 250.60 E11.49 Diagnosis Notes Drag & Drop to change diagnosis order Lymphedema of both lower extremities 457.1 I89.0 Diagnosis Notes Drag & Drop to change diagnosis order PVD (peripheral vascular disease) 443.9 I73.9 Diagnosis Notes Drag & Drop to change diagnosis order History of amputation of right great toe V49.71 Z89.411 Diagnosis Notes Drag & Drop to change diagnosis order Amputated toe of right foot 895.0 S98.131A Diagnosis Notes Drag & Drop to change diagnosis order Hammertoe of right foot 735.4 M20.41 Diagnosis Notes Drag & Drop to change diagnosis order Personal history of diabetic foot ulcer V12.29 Z86.31 Diagnosis Notes Drag & Drop to change diagnosis order Callus 700 L84 Diagnosis Notes Drag & Drop to change diagnosis order Diabetic ulcer of toe of left foot associated with type 2 diabetes mellitus, limited to breakdown of skin 250.80 E11.621 Diagnosis Notes Drag & Drop to change diagnosis order Swelling of right lower extremity 729.81 M79.89 Diagnosis Notes Drag & Drop to change diagnosis order Surgical wound dehiscence 998.32 T81.31XA Diagnosis Notes Drag & Drop to change diagnosis order Onychomycosis 110.1 B35.1 Diagnosis Notes Drag & Drop to change diagnosis order Skin ulcer of left great toe, limited to breakdown of skin 707.15 L97.521 Diagnosis Notes Drag & Drop to change diagnosis order Venous ulcer of left lower extremity without varicose veins 459.81 I87.2 Diagnosis Notes Drag & Drop to change diagnosis order Ulcer of left lower extremity, limited to breakdown of skin 707.10 L97.921 Diagnosis Notes Drag & Drop to change diagnosis order Venous ulcer of right lower extremity without varicose veins 459.81 I87.2 Diagnosis Notes Drag & Drop to change diagnosis order Ulcer of right lower extremity, limited to breakdown of skin 707.10 L97.911 documented in this encounter [facility] 03-01-2024 Instructions Leanna Harrison RN - 03/01/2024 10:59 AM EDT WOUND CARE INSTRUCTIONS- Shade Brambila Wound location: Bilateral Lower Leg Wounds - Gather supplies - Place down a clean work surface such as new paper towel or newly cleaned towel. - Clean all metal instruments with rubbing alcohol before and after each use. - Plastic garbage bag for old dressing - Wash your hands with soap and water before and after wound care. Wash your foot with dial soap and water. Dry well between the toes. Bilateral Lower Extremity Wound Care: Wash wounds with: Vashe Apply to wound bed: Adaptic, Calcium Alginate Ag Cover wounds with: 4x4 [place] SAPs, cover the wound on the right anterior lower leg with a 2x2 border guaze Other: change dressings daily, moisturize lower legs with vaseline daily - Apply double layer TubiGrip E to both lower legs. Apply compression first thing in the morning. OK to remove compression at bedtime. Compression must be removed if: it becomes wet or soiled If you have numbness or tingling in your foot or toes If you have increased pain If toes become cold or discolored - Avoid sitting with legs in a dependent position or standing for long periods of time. - Attempt to lay flat and elevate your legs above the level of your heart 2-3 times daily, for 30 minutes at a time. - Be sure to continue walking and/or calf pumps and exercises to mimic writing the alphabet with your foot, as instructed - Control your sodium intake as instructed by provider To give your wound the best chance to heal: - Eat three balanced meals daily focusing on the protein - Control your blood sugar. Keep blood sugar less than 200 - Complete your wound care instructions as ordered - Vitamin C 500 mg twice daily - Multiple Vitamin Daily - Drink a protein shake daily - Premiere Clear or Glucerna for Diabetic patients, Nepro for renal patients and premiere for non-renal and non-diabetic patients Report any of the following signs and symptoms of infection to the Wound Center at [phone] or go to the Emergency Department: Fever or chills Increased drainage Green or yellow drainage Foul odor Increased pain Hardness around the wound Redness, warmth or swelling of the surrounding tissue Color change to the wound Evenings / Weekends / Holidays If you call the wound center at the phone number provided above, please leave a detailed message that includes your full name, birthday, and phone number. We are seeing patients during the day, so we will return your call within a 24-48 hr period in the order your call was received. There is not an on-call provider assigned to the wound center. If you have an emergency that needs to be addressed, please go to an Urgent Care or Emergency Room. Thank you for your cooperation and understanding. Due to the cold and flu season approaching us, if you have any symptoms such as a cough, fever, chills, nausea, vomiting, diarrhea, and/or body aches, please call and reschedule your appointment in the Wound Center. PLAN/ORDERS: Follow-up in the Wound Center with Berny Reyes DPM in 2 weeks Schedule PVR Labs ordered at today's visit Continue aggressive nutritional support to assist wound healing, focusing on increasing protein intake. Wound care supplies were ordered through [employer]. They will attempt to call you once. If you miss the call, or do not hear from them within 1-2 days, please call the phone number provided: . [facility] Dr. Giovanni Reyes [place] Office [address] [address] Main Office [address] [place] [address] [address] [place] [address] Berny Reyes DPM/dulce/rivka documented in this encounter [facility] 03-01-2024 Nurse Note Nursing Documentation Pertinent Medical History: DM2, HTN, venous insufficiency, & heart failure Wound Etiology according to patient: Pt had right great toe amputation June 18, 2023 Patient arrived via: Ambulatory with [employer]/Nursing Facility: N/A Consent captured for debridement per Dr. Alfredo Moore DPM and linda until March 2024 Consent captured for debridement per Dr. Berny Reyes DPM and linda until March 2024 Anticoagulant Therapy: N/A ACTIVE CARE PER PROVIDER: Giovanni Bolanos DPM, Hu Pickard DPM, & Alfredo Moore DPM WOUND # 1 -22 previously closed WOUND # 24, 25 previously closed WOUND # 27 LOCATION: Right dorsal Foot - intact bulla on arrival - new 11/26/22 Blister dry, intact closed skin 12/03/22, closed 12/07/22 WOUND # 26 - LOCATION: Right Great Toe - Hallux Lateral- (new 11/10/22) - closed 01/15/23, remains closed 01-28-2023 WOUND # 23 - LOCATION: Right 2nd Toe AMP Site CLOSED 03/18/23 WOUND # 28 LOCATION: Right 1st/2nd Toe Amp Site - (NEW 06/18/23) Closed 07/27/23 WOUND # 30 LOCATION: Right lateral posterior lower leg (09/16/23) closed 09/30/23 WOUND # 29 LOCATION: Right 3rd Toe Tuft (NEW 07/27/23) Application Dates: Grafts are complete 01/07/2023 Apligraf 01/15/2023 Apligraf 01/21/2023 Apligraf 01/27/2023 Apligraf 02/04/2023 Apligraf WOUND ASSESSMENT: Refer to Provider's Wound Assessment Note VASCULAR ASSESSMENT BY PROVIDER: See provider wound assessment note CHF History: Yes as of February 2022, Dr. Sadler in Cardiology EDEMA: Right Foot: trace Right Ankle: 3+ pitting Right Calf: 3+ pitting Left Foot: trace Left Ankle: 2+ pitting Left Calf: 4+ pitting Other: N/A MEASUREMENTS: in cm Right Calf: 36.5 Right Ankle: 22.0 Left Calf: 35.6 Left Ankle: 21.9 Length: 43.0 Not Measured 03/01/24 WOUND PHOTOGRAPHY: Yes x 4 (last taken 03/01/24) DEBRIDEMENT PROCEDURE BY PROVIDER: Anesthetic Used: Insensate Other procedure: n/a Specimen collected:n/a WOUND TREATMENT PER MD ORDER: Wounds cleansed by mechanical debridement to allow provider to visualize wound base WOUND # 31 LOCATION: Left Anterior Lower Leg L: 2.0 cm x W: 2.0 cm x D: 0.1 cm Cleansed with: Vashe Applied to naya-wound skin: skin prep, vaseline Applied to wound bed: Adaptic, Calcium Alginate Ag Covered and secured with: 4x4 [place] SAP Other: WOUND # 32 LOCATION: Left Posterior Lower Leg Cluster L: 3.8 cm x W:3.4 cm x D: 0.1 cm Cleansed with: Vashe Applied to naya-wound skin: skin prep, vaseline Applied to wound bed: Adaptic, Calcium Alginate Ag Covered and secured with: 4x4 [place] SAP Other: WOUND # 33 LOCATION: Right Medial Lower Leg L: 0.7 cm x W: 0.9 cm x D: 0.1 cm Cleansed with: Vashe Applied to naya-wound skin: skin prep, vaseline Applied to wound bed: Adaptic, Calcium Alginate Ag Covered and secured with: 2x2 border guaze Other: WOUND # 34 LOCATION: Right Distal Medial Lower Leg L: 0.6 cm x W: 0.5 cm x D: 0.1 cm Cleansed with: Vashe Applied to naya-wound skin: skin prep, vaseline Applied to wound bed: Adaptic, Calcium Alginate Ag Covered and secured with: 4x4 [place] SAP Other: SAP covered both the posterior and medial wound WOUND # 35 LOCATION: Right Posterior Lower Leg L: 0.7 cm x W: 0.5 cm x D: 0.1 cm Cleansed with: Vashe Applied to naya-wound skin: skin prep, vaseline Applied to wound bed: Adaptic, Calcium Alginate Ag Covered and secured with: 4x4 [place] SAP Other: SAP covered both the posterior and medial wound COMPRESSION: TubiGrip E - double layer SPECIAL NEEDS: Coordination of care [employer] order (supplies and Farrow wraps) Emotional support N/A OR set-up N/A Yarn Examiner N/A Incontinence needs N/A [employer] company: ordered 03/01/24 (supplies and Farrow wraps DISCHARGED in stable condition to: ambulatory with cane PLAN/ORDERS: Follow-up in the Wound Center with Berny Reyes DPM in 2 weeks Schedule PVR Labs ordered at today's visit Continue aggressive nutritional support to assist wound healing, focusing on increasing protein intake. [facility] Podiat[facility] Dr. iGovanni Reyes [place] Office [address] [address] Main Office [address] [facility] [address] [place] [address] EDUCATION: The patient/family was instructed how to cleanse the wound(s). Visual demonstration on how to apply the dressing with teach back method. Signs & symptoms of infection were reviewed: Increased redness, swelling, pain, green/yellow drainage, fever and/or chills would all need to be evaluated by a Physician. Patient received typed home-going wound care instructions and has expressed intent to comply. OTHER EDUCATION: Pt instructed to bring Farrow wraps to next visit. Education performed regarding lymphedema/edema: Elevation of extremity above the heart for 30 minutes three times daily and as needed Exercise such as writing the ABC's with your toes in the air, walking and/or calf pumps Wearing compression as ordered by provider Diet controlling of sodium as instructed by provider Use of medication to help control edema. UNIVERSAL PROTOCOL / SAFETY CHECKLIST - Procedure to be Performed sharp debridement of right third toe wound Sign In: 1121 A Moment of CARE was completed. Personnel directly involved with the procedure wore the appropriate PPE (Personal Protective Equipment). Patient/Surrogate Stated/Verified: PATIENT VERIFIED(optional for EMERGENT procedures): Patient name, Date of , Relevant allergies, and The intended procedure Time Out ommunication: 1122 Intended patient and procedure match the source documents. Consent documented and matches the intended procedure. No relevant labs, photos, and/or imaging studies were applicable for review. Sign Out: 1136 SIGN OUT (optional for EMERGENT procedures): All instruments, equipment, possible retained foreign bodies accounted for. Current HBOT Status: Active or Complete - see screening below WOUND CENTER HYPERBARIC OXYGEN THERAPY SCREENING 1. Is the patient diabetic? (If No, skip to question 5) Yes 2. Does the patient have a lower extremity wound? Yes 3. Is there exposed/involved tendon or bone? 4. Has the wound been present for 30 days? Yes If Yes to ALL questions above, consult the [facility] 5. Has the patient been diagnosed with osteomyelitis? No 6. Has the patient had a previous skin graft or flap at the wound? No 7. Has the patient had or been offered vascular intervention/evaluation? No 8. Does the patient have a wound at an amputation site? Yes 9. Has the patient had radiation therapy at the site of the problem? No If Yes to ANY of questions 5-9, consult the [facility] Leanna Harrison RN/rivka [facility] 02-24-2024 Instructions Stephenie Levi MD - 02/24/2024 11:31 AM EDT Astroglide lubricant during sex. You might need multiple applications of lubricant during sex. Aquaphor for the vulva and outside skin areas. Lubricants and moisturizers list Modified from the office of Lacey Fitzgerald The [id number] vaginal moisturizer and lubricant products can be confusing to sort through, especially since there are no FDA requirements for how they can be marketed or labeled. In general there are 3 categories of products: Vaginal lubricants should be used at the time of intercourse to decrease friction. Long acting vaginal moisturizers are used at least twice weekly to increase vaginal (internal) lubrication and elasticity. Vulvar moisturizers are for external use for vulvar comfort and do not impact vaginal lubrication or elasticity. Vaseline petroleum products and oils (baby oil, coconut, olive oil,) can make condoms break, so should not be used with condoms. In many women, these can cause infections. However, if you have sore spots on the vulva (outer lips), then petroleum jelly can sometimes be helpful. All of the products listed below are over the counter. Many can be bought in any drugstore or online. Also, many [employer] stores do carry high-quality lubricant products. RESEARCH REGARDING LUBRICANTS: -Journal of Sexual Medicine 2013. Lubricants: decrease pain but also add pleaseure, comfort and orgasm - 95% experienced greater sexual comfort - 94% experiences greater sexual pleasure - users of lubrication also endorsed greater ease of orgasm VAGINAL LUBRICANTS: (For use during sexual activity) Lubricants should be applied to the outside and opening of the vagina at the time of sexual activity. The lubricant can also be applied to the penis or a device. Silicone based lubricants should not be used on silicone vibrators or toys. Both silicone and water based lubricants are condom compatible. If you use a water based lubricant, it is also important to choose a lubricant with low osmolality since lubricants with high osmolality increase the chance of irritation and infection. Osmolality information can be hard to find. All of the following lubricants have a low osmolality, are pH balanced, and are preservative free. WATER BASED LUBRICANTS Good Clean Love (made of organic ingredients) -Paraben free, glycerin free, -propane free -can be purchased at [employer] FemGlide SlipperyStuff PreSeed (Does not impact sperm motility and can be used if trying to conceive, also good for those with multiple sensitivities, though may not work as well) Preseed is the least likely to generate vulvar irritation Replens, [place], Astroglide More often associated with irritation SILICONE BASED LUBRICANTS Uber lube Replens Silky Smooth Pulse Aloe-ahh Wet Collins CLARISSA Premium Personal Lubricant PINK Silicone Lubricant SLIQUID Organics silk Pulse is a hands free personal lubricant warming dispenser and is sold with water or silicone based lubricant pods that some women prefer for travel. LONG ACTING VAGINAL MOISTURIZERS: (For regular use inside vagina to maintain moisture) Long acting vaginal moisturizers should be used at least twice weekly on a regular basis. Many women find they need to use a moisturizer 2-3times/week. Does not require reapplication prior to intercourse. In addition, it is important to not only apply the moisturizer inside the vagina, but also to apply to the vestibule (the external area surrounding the opening of the vagina). Women who are not sexually active often find that the regular use of a long acting vaginal moisturizer makes them feel more comfortable. Wet Mix Operator beware: many lubricants are labeled as moisturizers to make them more appealing to consumers (even though they don t function as a true moisturizer). Replens Long Acting Vaginal Moisturizer (Available in all drugstores). Use Q 3 days LUVENA Use 2x per week Luvena's PreBiotic Vaginal Moisturizer and Lubricant Pre-Filled Applicators help restore and protect your sensitive areas with an effective prebiotic Preservative free with cranberry extract Certified natural and restorative prebiotic Helps maintain beneficial judy and correct pH Provides anti-yeast proteins + natural antibacterial enzymes Preservative, estrogen, paraben, glycerin free HyaloGyn Vaginal Hydrating Gel (hybrid moisturizer, but can function as lubricant too) -an excellent option for women who are contraindicated for HRT, with good studies in breast cancer patients Revaree (hyaluronic acid) -an excellent option for women who are contraindicated for HRT, with good studies in breast cancer patients VULVAR MOISTURIZERS: (For external use) Replens Moisture Restore Comfort Gel is to be used externally for dry vulvar skin. Aquaphor can also be applied externally for comfort. [place] Aloe [place]: Many people are allergic to aloe, so keep this in mind with products like this that have aloe in it. Medicine Mama s V magic: Not much medical studies on this, but many patients swear by it, has oil, beeswax and honey in it- best used externally only. documented in this encounter [facility] 02-24-2024 Note HNO ID: [id number] Author: ALFREDO UREÑA MD Service: ? Author Type: Physician Type: Progress Notes Filed: 02/24/2024 14:35 Note Text: Gynecologic Oncology Note [facility] Chief complaint: Surveillance HPI: This is a 63 year old with h/o 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 Denies concerns today. No intervening surgeries. Has some balance issues and planning on PT. Wished to discuss intercourse and any restrictions she may have. Has met someone that she has been talking to. No N/V/C/D. Good appetite. No VB/VD. Oncologic History: Oncology History Endometrial cancer (HCC) 08/09/2023 Initial Diagnosis Endometrial cancer (HCC) 08/19/2023 Surgery RA-TLH/BSO, cystoscopy. Non-mapping sentinel nodes, frozen FIGO grade 1 and < 50 % myoinvasion. Lymph node dissection deferred. Final stage IA (IA2 -2022). MMR intact. ROS: All other medical and surgical histories reviewed and updated. PE: BP 132/75 (BP Site: Right Arm, BP Position: Sitting, BP Cuff Size: Extra Large Adult) Pulse 73 Temp 36.8 ?C (98.3 ?F) (Oral) Wt 102.1 kg (225 lb) SpO2 95% BMI 34.21 kg/m? Gen: well appearing, alert Abd: soft, incisions well healed, non-distended Pelvic: typical atrophic changes in vagina, cuff well healed, non-tender symmetrical erythema and thickening of vulva consistent with dermatitis. No nodularity on bimanual exam. Rectal: deferred Ext: non-tender Lab/Imaging: A. Uterus, cervix, bilateral fallopian tubes and ovaries, total robotic laparoscopic hysterectomy with bilateral salpingo-oophorectomy: -- Endometrium: Endometrial adenocarcinoma, endometrioid type FIGO grade 1, invades 31% (6/19 mm) of myometrium, see comment and case summary. -- Myometrium: Leiomyoma and adenomyosis. -- Cervix: Negative for cervical stromal involvement. -- Bilateral fallopian tubes: Negative for carcinoma. -- Bilateral ovaries: Bilateral fibrothecoma A/P: This is a 63 year old stage IA2 FIGO grade 1 EAC of the uterus here for sruvellance Endometrial cancer: - DEA - MMR intact - RTC in 3 months Vulvo-vaginal care: - No restrictions on intercourse - Advised Aquaphor for vulvar skin care - Advised lubricants during intercourse Urinary incontinence, nocturnal - Urogynecology in March Alfredo Ureña MD, MPH Gynecologic Oncologist Medical Decision Making: Problems: Minimal: Self-limited or minor problem Low: Stable chronic illness Risk: Low: Low risk from testing/treatment Medical Decision Making Level: 3 - Low [facility] 02-24-2024 History of Presen t illness Narrative Gynecologic Oncology Note [facility] Chief complaint: Surveillance HPI: This is a 63 year old with h/o 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 Denies concerns today. No intervening surgeries. Has some balance issues and planning on PT. Wished to discuss intercourse and any restrictions she may have. Has met someone that she has been talking to. No N/V/C/D. Good appetite. No VB/VD. Oncologic History: Oncology History Endometrial cancer (HCC) 08/09/2023 Initial Diagnosis Endometrial cancer (HCC) 08/19/2023 Surgery RA-TLH/BSO, cystoscopy. Non-mapping sentinel nodes, frozen FIGO grade 1 and < 50 % myoinvasion. Lymph node dissection deferred. Final stage IA (IA -2022). MMR intact. ROS: All other medical and surgical histories reviewed and updated. PE: BP 132/75 (BP Site: Right Arm, BP Position: Sitting, BP Cuff Size: Extra Large Adult) Pulse 73 Temp 36.8 C (98.3 F) (Oral) Wt 102.1 kg (225 lb) SpO2 95% BMI 34.21 kg/m Gen: well appearing, alert Abd: soft, incisions well healed, non-distended Pelvic: typical atrophic changes in vagina, cuff well healed, non-tender symmetrical erythema and thickening of vulva consistent with dermatitis. No nodularity on bimanual exam. Rectal: deferred Ext: non-tender Lab/Imaging: A. Uterus, cervix, bilateral fallopian tubes and ovaries, total robotic laparoscopic hysterectomy with bilateral salpingo-oophorectomy: -- Endometrium: Endometrial adenocarcinoma, endometrioid type FIGO grade 1, invades 31% (6/19 mm) of myometrium, see comment and case summary. -- Myometrium: Leiomyoma and adenomyosis. -- Cervix: Negative for cervical stromal involvement. -- Bilateral fallopian tubes: Negative for carcinoma. -- Bilateral ovaries: Bilateral fibrothecoma A/P: This is a 63 year old stage IA2 FIGO grade 1 EAC of the uterus here for sruvellance Endometrial cancer: - DEA - MMR intact - RTC in 3 months Vulvo-vaginal care: - No restrictions on intercourse - Advised Aquaphor for vulvar skin care - Advised lubricants during intercourse Urinary incontinence, nocturnal - Urogynecology in March Alfredo Ureña MD, MPH Gynecologic Oncologist Medical Decision Making: Problems: Minimal: Self-limited or minor problem Low: Stable chronic illness Risk: Low: Low risk from testing/treatment Medical Decision Making Level: 3 - Low documented in this encounter [facility] 02-09-2024 Instructions Eldon Gill, - 02/09/2024 2:31 PM EDT Images from the original note were not included. Bowel Preparation Instructions for: Miralax-Gatorade Preparations IF YOU DO NOT FOLLOW THESE DIRECTIONS, YOUR COLONOSCOPY WILL BE CANCELLED. Sosa Instructions: Your bowel must be empty so that your doctor can clearly view your colon. Follow all of the instructions in this handout EXACTLY as they are written. Do NOT eat any solid food the ENTIRE day before your colonoscopy. Buy your bowel preparation at least 5 days before your colonoscopy. Four (4) Dulcolax laxative tablets containing 5mg of bisacodyl each (NOT Dulcolax stool softener) One (1) 8.3oz. bottle Miralax (238 grams) or generic equivalent 2 x 32oz. Bottles of Gatorade (NOT RED) Diabetic Patients: Use G2 (Gatorade 2) TRANSPORTATION on the Day of Your Exam A responsible adult MUST be present with you at Check In prior to your colonoscopy and REMAIN in the endoscopy area until you are discharged. You are NOT ALLOWED to drive, take a taxi or bus, or leave the Endoscopy Center ALONE. If you do not have a responsible otr owner operator truck driver (family member or friend) with you to take you home, your exam cannot be done with sedation and will be cancelled. Please bring a list of all of your current medications, including any Zuej-flj-Yiibhac medications with you. Medications If you take insulin, diabetic medications or blood thinners such as Coumadin (warfarin), Plavix (clopidogrel), Ticlid (ticlopidine hydrochloride), Agrylin (anagrelide), Xarelto (Rivaroxaban), Pradaxa (Dabigatran), Eliquis (Apixaban), and Effient (Prasugrel). You MUST call the doctors who orders those medicines for instructions on altering the dosage before your colonoscopy. All other medications should be taken the day of the exam with a sip of water including ASPIRIN. Five (5) Days Before Your Colonoscopy Do NOT take medicines that stop diarrhea - such as Imodium, Kaopectate, or Pepto Bismol. Do NOT take fiber supplements - such as Metamucil, Citrucel, or Perdiem. Do NOT take products that contain iron - such as multi-vitamins (the label lists what is in the products). Three (3) Days Before Your Colonoscopy Do NOT eat high-fiber foods - such as popcorn, beans, seeds (flax, sunflower, quinoa), multigrain bread, nuts, salad/vegetables, or fresh and dried fruit. 1 Bowel Preparation Instructions for: Miralax-Gatorade Preparations One (1) Day Before Your Colonoscopy Only drink clear liquids the ENTIRE DAY before your colonoscopy. Do NOT eat any solid foods. Drink at least 8 ounces of clear liquids every hour after waking up. The clear liquids you can drink include: Clear Liquid (NO RED LIQUIDS) DO NOT DRINK Gatorade, Pedialyte or Powerade Clear broth or bouillon Coffee or tea (no milk or non-dairy creamer) Carbonated and non-carbonated soft drinks Nemesio-Aid or other fruit flavored drinks Strained fruit juices (no pulp) Jell-O, popsicles, hard candy Water Alcohol Milk or non-dairy creamers Noodles or vegetables in soup Juice with pulp Liquid you cannot see through Do not use tobacco/vaping products Mix 1/2 of Miralax bottle (119 grams) in each 32 ounces of Gatorade bottle until dissolved. Keep cool in the refrigerator. DO NOT ADD ICE. The bowel preparation solution will be consumed in two parts. Part 1 5:00 PM - Evening before your colonoscopy Take 4 Dulcolax tablets. 6 PM - Evening before your colonoscopy Drink 32 oz. of the mixed solution. Drink an 8 oz. glass of bowel preparation every 15 minutes for a total of 4 glasses. Fifteen (15) minutes later, drink an 8 oz. glass of of clear liquids every 15 minutes for a total of 2 glasses. You may continue to drink clear liquids till midnight. Part 2 On the day of your colonoscopy you may drink clear liquids up to (three) 3 hours prior to procedure. 4 1/2 hours before your colonoscopy Take another 32 oz. bottle of mixed solution. Drink an 8 oz. glass of bowel prep every 15 minutes for a total of 4 glasses. Fifteen (15) minutes later, drink an 8 oz. glass of clear liquids every 15 minutes for a total of 2 glasses. You may continue to drink clear liquids up to (three) 3 hours before your exam. 2 08/2019 documented in this encounter [facility] 02-09-2024 Note HNO ID: [id number] Author: ELDON GILL DO Service: ? Author Type: Physician Type: Progress Notes Filed: 03/11/2024 11:56 Note Text: 63 year old female presenting for follow up I have fully reviewed the past medical, surgical, social and family history and updated the Histories section of [facility]. Type 2 Diabetes Follow up: Fasting blood sugars: Pre-meal blood sugars: Low blood sugars: Medication compliance: Diet: Exercise: Increased urination, hunger, thirst, weight changes: no Hemoglobin A1c 8.3 10/07/2023 Hemoglobin A1c 9.1 08/09/2023 Hemoglobin A1c 7.9 06/14/2023 Continue with endocrine Current Outpatient Medications on File Prior to Visit: Current Outpatient Medications Medication Sig Dispense Refill enalapril (VASOTEC) 20 mg tablet Take 0.5 tablets by mouth two times a day. atorvastatin (LIPITOR) 80 mg tablet take 1 tablet by mouth every day 90 tablet 3 furosemide (LASIX) 20 mg tablet Take 20 mg by mouth once daily. Take 20 mg daily x 7 days after 11/29/23 ED visit metFORMIN (GLUCOPHAGE) 1,000 mg tablet TAKE 1 TABLET BY MOUTH TWICE DAILY WITH MEALS. E11.3599 180 tablet 3 Senna 8.6 mg tab Take 1 tablet by mouth once daily. 60 tablet 0 ascorbic acid (VITAMIN C ORAL) Take by mouth. aspirin, enteric coated (ASPIRIN, ENTERIC COATED) 81 mg EC tablet Take 81 mg by mouth once daily. insulin regular human, CONCENTRATED 500 UNIT/ML, (HUMULIN R) 500 unit/mL (3 mL) inpn 50 units sc at breakfast, 100 units at lunch, 70 units at supper. 42 mL 3 fluticasone (FLONASE) 50 mcg/actuation nasal spray Use 2 Sprays in each nostril once daily. (Patient taking differently: Use 2 Sprays in each nostril as needed.) 1 Each 3 cyanocobalamin, vitamin B-12, 1,000 mcg/mL kit 1,000 mcg by INJECTION(UNSPECIFIED PARENTERAL ROUTES) route once every month. JARDIANCE 25 mg tablet take 1 tablet by mouth every day with breakfast (Patient taking differently: Take 25 mg by mouth daily with lunch.) 90 tablet 3 CPAP/BIPAP/OTHER New set up: Settings 5 - 15 cm H2O, suitable mask per pt preference, chin strap, head gear, humidity, tubing, lifetime supplies. G47.33 NELLY 1 Each 0 Blood Pressure Monitor Please monitor blood pressure 1-2 hours after taking morning medications. 1 Kit 0 Zinc 50 mg tab Take 50 mg by mouth once daily. multivit,thx,calcium,iron,mins (MULTIVITAMIN AND MINERAL ORAL) Take 1 tablet by mouth once daily. blood sugar diagnostic (ACCU-CHEK JOSE PLUS TEST STRP) test strip USE TO TEST BLOOD GLUCOSE 3 TIMES DAILY. 300 Strip 1 ibuprofen (ADVIL ORAL) Take 3 tablets by mouth as needed. FLUoxetine (PROZAC) 40 mg capsule Take by mouth q 24 HR. lancets (ONE TOUCH DELICA) 33 gauge USE TO BLOOD GLUCOSE 3 TIMES DAILY. INSULIN DEPENDENT E11.3299, E11.65, Z79.4 300 Each 3 insulin needles, DISPOSABLE, (BD INSULIN PEN NEEDLE UF) 31 gauge x 5/16 FOUR DAILY FOR INSULIN INJECTIONS. 400 Each 1 Blood-Glucose Meter mis Use to test blood glucose 3 times daily. Insulin Dependent E11.3299, E11.65, Z79.4 1 Each 0 Cholecalciferol, Vitamin D3, 50 mcg (2,000 unit) cap Take 1 tablet by mouth once daily. Current Facility-Administered Medications Medication Dose Route Frequency Provider Last Rate Last Admin cyanocobalamin 1,000 mcg injection 1,000 mcg INTRAMUSCULAR q 4 WEEKS Eldon Gill DO 1,000 mcg at 01/11/24 1405 ALLERGIES Allergen Reactions Amoxicillin Unknown Patient does not remember reaction Codeine Intolerance Patient states Makes her Hyper Morphine Intolerance Difficulty waking up / groggy PAST SURGICAL HISTORY Procedure Laterality Date AMPUTATION TOE,MT-P JT Right 07/2022 Hallux DILATION AND CURETTAGE DXAND/THER NONOBSTETRIC x3 EXTENSIVE HAND SURGERY Dupuytren contracture TONSILLECTOMY HX Social history reviewed in [facility]. REVIEW OF SYSTEMS: Constitutional: Denies fever, denies chills, denies fatigue Head: Denies headache Eyes: Denies changes in vision or blurry vision Ears/Nose/Throat: Denies sore throat, denies rhinorrhea Musculoskeletal: Denies joint pain, denies myalgias Abd: No abd pain, no vomiting, no diarrhea, no nausea Skin/Breast: Denies rash or lesions Cardiovascular: Denies chest pain, denies palpitations, denies LE edema Respiratory: Denies cough, denies SOB, denies wheezing Neurological: Denies numbness, denies tingling, denies weakness PHYSICAL EXAMINATION: General appearance: Well appearing, alert, in no acute distress, well-hydrated, well nourished. Skin: no suspicious rashes or lesions Head: Normocephalic, atraumatic Eyes: Anicteric sclera Nose/Sinuses: Nares normal Oropharynx: Mucosa moist Neck: Supple Lungs: Lungs clear to auscultation. No wheezing, rhonchi, rales. Heart: RRR without murmur, gallop, or rubs. Abdomen: Normal abdominal exam, Abdomen soft, non-tender. No masses Extremities: No deformities, no edema, no cyanosis. Musculoskeletal: No joint swelling, no deformity Neuro: Speech (more content not included)... [facility] 02-09-2024 History of Presen t illness Narrative 63 year old female presenting for follow up I have fully reviewed the past medical, surgical, social and family history and updated the Histories section of [facility]. Type 2 Diabetes Follow up: Fasting blood sugars: Pre-meal blood sugars: Low blood sugars: Medication compliance: Diet: Exercise: Increased urination, hunger, thirst, weight changes: no Hemoglobin A1c 8.3 10/07/2023 Hemoglobin A1c 9.1 08/09/2023 Hemoglobin A1c 7.9 06/14/2023 Continue with endocrine Current Outpatient Medications on File Prior to Visit: Current Outpatient Medications Medication Sig Dispense Refill enalapril (VASOTEC) 20 mg tablet Take 0.5 tablets by mouth two times a day. atorvastatin (LIPITOR) 80 mg tablet take 1 tablet by mouth every day 90 tablet 3 furosemide (LASIX) 20 mg tablet Take 20 mg by mouth once daily. Take 20 mg daily x 7 days after 11/29/23 ED visit metFORMIN (GLUCOPHAGE) 1,000 mg tablet TAKE 1 TABLET BY MOUTH TWICE DAILY WITH MEALS. E11.3599 180 tablet 3 Senna 8.6 mg tab Take 1 tablet by mouth once daily. 60 tablet 0 ascorbic acid (VITAMIN C ORAL) Take by mouth. aspirin, enteric coated (ASPIRIN, ENTERIC COATED) 81 mg EC tablet Take 81 mg by mouth once daily. insulin regular human, CONCENTRATED 500 UNIT/ML, (HUMULIN R) 500 unit/mL (3 mL) inpn 50 units sc at breakfast, 100 units at lunch, 70 units at supper. 42 mL 3 fluticasone (FLONASE) 50 mcg/actuation nasal spray Use 2 Sprays in each nostril once daily. (Patient taking differently: Use 2 Sprays in each nostril as needed.) 1 Each 3 cyanocobalamin, vitamin B-12, 1,000 mcg/mL kit 1,000 mcg by INJECTION(UNSPECIFIED PARENTERAL ROUTES) route once every month. JARDIANCE 25 mg tablet take 1 tablet by mouth every day with breakfast (Patient taking differently: Take 25 mg by mouth daily with lunch.) 90 tablet 3 CPAP/BIPAP/OTHER New set up: Settings 5 - 15 cm H2O, suitable mask per pt preference, chin strap, head gear, humidity, tubing, lifetime supplies. G47.33 NELLY [facility] [id number] 1 Each 0 Blood Pressure Monitor Please monitor blood pressure 1-2 hours after taking morning medications. 1 Kit 0 Zinc 50 mg tab Take 50 mg by mouth once daily. multivit,thx,calcium,iron,mins (MULTIVITAMIN AND MINERAL ORAL) Take 1 tablet by mouth once daily. blood sugar diagnostic (ACCU-CHEK JOSE PLUS TEST STRP) test strip USE TO TEST BLOOD GLUCOSE 3 TIMES DAILY. 300 Strip 1 ibuprofen (ADVIL ORAL) Take 3 tablets by mouth as needed. FLUoxetine (PROZAC) 40 mg capsule Take by mouth q 24 HR. lancets (ONE TOUCH DELICA) 33 gauge USE TO BLOOD GLUCOSE 3 TIMES DAILY. INSULIN DEPENDENT E11.3299, E11.65, Z79.4 300 Each 3 insulin needles, DISPOSABLE, (BD INSULIN PEN NEEDLE UF) 31 gauge x 5/16 FOUR DAILY FOR INSULIN INJECTIONS. 400 Each 1 Blood-Glucose Meter misc Use to test blood glucose 3 times daily. Insulin Dependent E11.3299, E11.65, Z79.4 1 Each 0 Cholecalciferol, Vitamin D3, 50 mcg (2,000 unit) cap Take 1 tablet by mouth once daily. Current Facility-Administered Medications Medication Dose Route Frequency Provider Last Rate Last Admin cyanocobalamin 1,000 mcg injection 1,000 mcg INTRAMUSCULAR q 4 WEEKS Eldon Gill DO 1,000 mcg at 01/11/24 1405 ALLERGIES Allergen Reactions Amoxicillin Unknown Patient does not remember reaction Codeine Intolerance Patient states Makes her Hyper Morphine Intolerance Difficulty waking up / groggy PAST SURGICAL HISTORY Procedure Laterality Date AMPUTATION TOE,MT-P JT Right 07/2022 Hallux DILATION & CURETTAGE DX&/THER NONOBSTETRIC x3 EXTENSIVE HAND SURGERY Dupuytren contracture TONSILLECTOMY HX Social history reviewed in [employer]. REVIEW OF SYSTEMS: Constitutional: Denies fever, denies chills, denies fatigue Head: Denies headache Eyes: Denies changes in vision or blurry vision Ears/Nose/Throat: Denies sore throat, denies rhinorrhea Musculoskeletal: Denies joint pain, denies myalgias Abd: No abd pain, no vomiting, no diarrhea, no nausea Skin/Breast: Denies rash or lesions Cardiovascular: Denies chest pain, denies palpitations, denies LE edema Respiratory: Denies cough, denies SOB, denies wheezing Neurological: Denies numbness, denies tingling, denies weakness PHYSICAL EXAMINATION: General appearance: Well appearing, alert, in no acute distress, well-hydrated, well nourished. Skin: no suspicious rashes or lesions Head: Normocephalic, atraumatic Eyes: Anicteric sclera Nose/Sinuses: Nares normal Oropharynx: Mucosa moist Neck: Supple Lungs: Lungs clear to auscultation. No wheezing, rhonchi, rales. Heart: RRR without murmur, gallop, or rubs. Abdomen: Normal abdominal exam, Abdomen soft, non-tender. No masses Extremities: No deformities, no edema, no cyanosis. Musculoskeletal: No joint swelling, no deformity Neuro: Speech intact ASSESSMENT/PLAN: 1. Vitamin B12 deficiency - ICD9: 266.2, ICD10: E53.8 (primary diagnosis) - CYANOCOBALAMIN (VIT B-12) 1,000 MCG/ML INJECTION SOLUTION 2. 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 Screening for colon cancer - ICD9: V76.51, ICD10: Z12.11 - COLONOSCOPY SCREENING Continue with endocrine Discussed with patient red flag symptoms. Discussed risks and benefits of treatment plan. Pt understands to seek appropriate evaluation for new or worsening symptoms. Patient understands and agrees with plan, all concerns and questions addressed. documented in this encounter [facility] 01-25-2024 Telephone encounter Note Received a request for office notes from [facility]. Office notes from 06/14/2023 faxed to: [phone] via [employer] and regular fax. Confirmation fax received. Transmission successful. [facility] 01-25-2024 Miscellaneous Notes Received a request for office notes from [facility]. Office notes from 06/14/2023 faxed to: [phone] via [employer] and regular fax. Confirmation fax received. Transmission successful. documented in this encounter [facility] 01-12-2024 Miscellaneous Notes Spoke to Patient, advised that she can get her B12 injection at her visit with Dr. Gill on February 08. Appointment on February 07 cancelled. Verbalized understanding. Shade is calling Eldon Gill DO today with concern regarding Appointment. Patient is asking if she can have her B12 shot done at her visit with Dr. Gill on 02-09-24 as opposed to coming in on 02-07 for the nurse and then 02-08 for the doctor. Patient has been identified by name and birthdate. Duration of symptoms: N/A Person calling: self Call patient at: at home [phone] (home) [phone] (cell) Was an appointment scheduled: No Closing statement: Jeanie Alegre Pss documented in this encounter [facility] 01-12-2024 Telephone encounter Note Spoke to Patient, advised that she can get her B12 injection at her visit with Dr. Gill on February 08. Appointment on February 07 cancelled. Verbalized understanding. [facility] 01-12-2024 Telephone encounter Note Shade is calling Eldon Gill DO today with concern regarding Appointment. Patient is asking if she can have her B12 shot done at her visit with Dr. Gill on 02-09-24 as opposed to coming in on 02-07 for the nurse and then 02-08 for the doctor. Patient has been identified by name and birthdate. Duration of symptoms: N/A Person calling: self Call patient at: at home [phone] (home) [phone] (cell) Was an appointment scheduled: No Closing statement: Jeanie Alegre Pss [facility] Work Phone: 12-17-2023 Miscellaneous Notes Received Diabetic eye report from [facility] . Placed in provider's inbox for review. Route to [place] for scanning documented in this encounter [facility] 12-17-2023 History of Presen t illness Narrative Images from the original note were not included. [facility] [place] [facility] OUTPATIENT VISIT DATE December 16, 2023 OUTPATIENT VISIT TYPE ESTABLISHED PRIMARY CARE PHYSICIAN: Eldon Gill DO CHIEF COMPLAINT: Patient presents with: Breathing Problem Leg Edema HISTORY OF PRESENT ILLNESS: Shade Brambila is a 63 year old female who presents today for a follow-up visit in the Heart Failure Clinic. The patient was last seen in office 06/17/2023. The following changes were made at that time: none. She was seen by cardiology on 11/30. Her enalapril was increased to 20 mg once a day. She is s/p right foot last three toes amputated on 10/14. Patient has had 3 hospitalizations and/or emergency room encounters in the last 12 months. Most recent ED visit was from 11/28 for management of hypertension and heart failure symptoms. Blood pressure upon arrival to ED was 195/95 mmHg. NT BNP was elevated >5000. She was treated with IV lasix 40 mg. She was discharged home on 20 mg lasix daily. Today, the patient reports feeling okay. Her last weight with cardiology was 220 lbs. Her weight today is 216 lbs. Since the increase in her blood pressure medication, blood pressures have been between 140-150's mmHg. Discussed last ER visit. States she was given soup from a friend in which she feels could have caused the heart failure exacerbation. Does not feel she is retaining fluid. Denies shortness of breath, chest pain, fever, chills, dizziness, lightheadedness. She is being seen by pain management and will undergo injections on 12/30 on right knee. Tries to monitor her sodium intake as best as she can. Has not been able to drive due to neuropathy in her feet. She follows with Dr. Reyes. Mentions having a hysterectomy in August due to uterine cancer. Has been using her CPAP machine intermittently as she is not fully comfortable with this. IMPRESSION: NYHA Functional Class: II Stage: C heart failure Shade Brambila is a 63 year-old female who presents to the Heart Failure Clinic for follow up. She appears euvolemic on examination. No changes to current medications. Will have her repeat labs in 1-2 weeks to reassess kidney function. Continue to monitor sodium and fluids. Encouraged daily weight every morning, first thing. She may take lasix for increase in weight 3-4 lbs in 1-2 days. Encouraged continued use of CPAP. Blood pressure elevated during visit however, patient had not taken her medications. Advised her to record blood pressures 3-4 hours after medication and notify office with results. Reviewed plan of care with patient. All questions answered at this time. PLAN AND RECOMMENDATIONS: 1. Chronic heart failure with preserved ejection fraction (HCC) - ICD9: 428.9, ICD10: I50.32 (primary diagnosis) - daily weights, call office if weight increases 3-4 lbs in a 1-4 day period -2 gm low sodium diet -activity as tolerated, rest breaks as needed -spironolactone to 12.5 mg once a day -lasix 20 mg as needed -25 mg jardiance once a day -BMP/ NT BNP in 1-2 weeks -follow up in HF Clinic or sooner if needed 2. Primary hypertension - ICD9: 401.9, ICD10: I10 -BP suboptimal during visit 172/73 mmHg (had not taken meds yet) -encourage DASH/low sodium diet -encourage exercise with rest breaks as needed -goal BP <130/80 mmHg -continue home BP monitoring 3. Mixed hyperlipidemia - ICD9: 272.2, ICD10: E78.2 -continue atorvastatin -last lipid panel 08/15/2022; LDL 117 HDL 55, total 184 Follow up appointment with Shanel Newell 03/06 PAST MEDICAL HISTORY Diagnosis Date Charcot left foot due to diabetes mellitus (HCC) 05/2013 subsequent to left foot fracture Congestive heart failure (HCC) Depression Diabetes (HCC) Diabetic ulcer of posterior right heel (HCC) 02/06/2020 Endometrial cancer (HCC) Foot fracture, left 05/2013 Charcot neuroarthropathy HTN (hypertension) Obesity NELLY (obstructive sleep apnea) Renal disorder on vasotec to protect kidneys rt diabetes since 1998. Vitamin D deficiency 01/05/2017 PAST SURGICAL HISTORY Procedure Laterality Date AMPUTATION TOE,MT-P JT Right 07/2022 Hallux DILATION & CURETTAGE DX&/THER NONOBSTETRIC x3 EXTENSIVE HAND SURGERY Dupuytren contracture TONSILLECTOMY HX Social History Tobacco Use Smoking status: Never Passive exposure: Never Smokeless tobacco: Never Vaping Use Vaping Use: Never used Substance Use Topics Alcohol use: Yes Comment: Occ - 3 glasses of wine a year Drug use: No Family History Problem Relation Age of Onset Hypertension Mother other (polycystic kidney disease) Mother Heart Father CHF Hypertension Father Diabetes Brother other (testicular cancer) Brother Coronary Artery Disease Brother MD and at age 45 other (CHF) Paternal Grandmother Cancer Paternal Aunt breast CA ALLERGIES Allergen Reactions Amoxicillin Unknown Patient does not remember reaction Codeine Intolerance Patient states Makes her Hyper Morphine Intolerance Difficulty waking up / groggy CURRENT MEDICATIONS: Current Outpatient Medications Medication Sig Dispense Refill atorvastatin (LIPITOR) 80 mg tablet take 1 tablet by mouth every day 90 tablet 3 furosemide (LASIX) 20 mg tablet Take 20 mg by mouth once daily. Take 20 mg daily x 7 days after 11/29/23 ED visit enalapril (VASOTEC) 20 mg tablet Take 1 tablet by mouth once daily. 90 tablet 3 metFORMIN (GLUCOPHAGE) 1,000 mg tablet TAKE 1 TABLET BY MOUTH TWICE DAILY WITH MEALS. E11.3599 180 tablet 3 ondansetron (ZOFRAN) 4 mg tablet Take 1 tablet by mouth every 6 hours as needed. (Patient not taking: Reported on 12/01/2023) 30 tablet 0 oxyCODONE IR (ROXICODONE) 5 mg immediate release tablet Take 1 tablet by mouth every 6 hours as needed. (Patient not taking: Reported on 12/01/2023) 12 tablet 0 polyethylene glycol 3350 (MIRALAX) 17 gram/dose powder Take 17 g by mouth as directed. Dissolve dose in 4 - 8 ounces of liquid and take as directed. (Patient not taking: Reported on 12/01/2023) 476 g 0 Senna 8.6 mg tab Take 1 tablet by mouth once daily. (Patient not taking: Reported on 12/01/2023) 60 tablet 0 ascorbic acid (VITAMIN C ORAL) Take by mouth. aspirin, enteric coated (ASPIRIN, ENTERIC COATED) 81 mg EC tablet Take 81 mg by mouth once daily. insulin regular human, CONCENTRATED 500 UNIT/ML, (HUMULIN R) 500 unit/mL (3 mL) inpn 50 units sc at breakfast, 100 units at lunch, 70 units at supper. 42 mL 3 fluticasone (FLONASE) 50 mcg/actuation nasal spray Use 2 Sprays in each nostril once daily. (Patient taking differently: Use 2 Sprays in each nostril as needed.) 1 Each 3 cyanocobalamin, vitamin B-12, 1,000 mcg/mL kit 1,000 mcg by INJECTION(UNSPECIFIED PARENTERAL ROUTES) route once every month. JARDIANCE 25 mg tablet take 1 tablet by mouth every day with breakfast (Patient taking differently: Take 25 mg by mouth daily with lunch.) 90 tablet 3 CPAP/BIPAP/OTHER New set up: Settings 5 - 15 cm H2O, suitable mask per pt preference, chin strap, head gear, humidity, tubing, lifetime supplies. G47.33 NELLY 1 Each 0 Blood Pressure Monitor Please monitor blood pressure 1-2 hours after taking morning medications. 1 Kit 0 Zinc 50 mg tab Take 50 mg by mouth once daily. multivit,thx,calcium,iron,mins (MULTIVITAMIN AND MINERAL ORAL) Take 1 tablet by mouth once daily. blood sugar diagnostic (ACCU-CHEK JOSE PLUS TEST STRP) test strip USE TO TEST BLOOD GLUCOSE 3 TIMES DAILY. 300 Strip 1 ibuprofen (ADVIL ORAL) Take 3 tablets by mouth as needed. FLUoxetine (PROZAC) 40 mg capsule Take by mouth q 24 HR. lancets (ONE TOUCH DELICA) 33 gauge USE TO BLOOD GLUCOSE 3 TIMES DAILY. INSULIN DEPENDENT E11.3299, E11.65, Z79.4 300 Each 3 insulin needles, DISPOSABLE, (BD INSULIN PEN NEEDLE UF) 31 gauge x 5/16 FOUR DAILY FOR INSULIN INJECTIONS. 400 Each 1 Blood-Glucose Meter misc Use to test blood glucose 3 times daily. Insulin Dependent E11.3299, E11.65, Z79.4 1 Each 0 Cholecalciferol, Vitamin D3, 50 mcg (2,000 unit) cap Take 1 tablet by mouth once daily. Current Facility-Administered Medications Medication Dose Route Frequency Provider Last Rate Last Admin cyanocobalamin 1,000 mcg injection 1,000 mcg INTRAMUSCULAR q 4 WEEKS Eldon Gill DO 1,000 mcg at 12/14/23 1409 REVIEW OF SYSTEMS: GENERAL: Negative for: Weight loss or gain, Fever or Chills, Weakness and Sleep difficulties. HEENT: Positive for:Glasses NECK: Negative for: Swelling, Pain, Stiffness RESPIRATORY: Negative for: Cough, Blood in Sputum, Shortness of breath, Wheezing, Apnea GASTROINTESTINAL: Negative for: Trouble swallowing, Heartburn, Change in bowel habits, Blood in stool, Dark black stools MUSCULOSKELETAL: Positive for: Muscle or joint pain NEUROLOGIC/PSYCHIATRIC: Negative for: Weakness, Paralysis, + feet Numbness, Tingling, Tremor, Nervousness or anxiety, Depressed mood, Memory loss SKIN: Negative for: Rash, Itching HEMATOLOGICAL/LYMPHATIC: Positive for: Easy bruising and Easy bleeding ENDOCRINE: Negative for: Heat or Cold Intolerance, Excessive Sweating, Frequent Urination, Frequent Thirst PHYSICAL EXAMINATION: BP 172/73 Pulse 61 Wt 98 kg (216 lb) SpO2 98% BMI 32.84 kg/m General: Normal exam, no distress, overweight, uses cane Skin: No clubbing, no cyanosis. Eyes: Extra ocular movements intact Neck: Neck veins are not distended Lungs: Chest clear to auscultation Heart: Rhythm: regular rate and rhythm, Rate: normal, no murmur Abdomen: Normal, Obesity Extremities: Normal exam of the extremities; wraps in place Peripheral Pulses: Normal CARDIOVASCULAR MEDICINE TESTING: Latest Reference Range & Units 11/29/23 13:47 Sodium 136 - 144 mmol/L 131 (L) Potassium 3.7 - 5.1 mmol/L 4.3 Chloride 97 - 105 mmol/L 98 CO2 22 - 30 mmol/L 24 BUN 7 - 21 mg/dL 33 (H) Creatinine 0.58 - 0.96 mg/dL 0.64 Glucose 74 - 99 mg/dL 300 (H) Protein, Total 6.3 - 8.0 g/dL 7.1 Calcium 8.5 - 10.2 mg/dL 9.1 Magnesium 1.7 - 2.3 mg/dL 2.0 Albumin 3.9 - 4.9 g/dL 3.4 (L) Bilirubin, Total 0.2 - 1.3 mg/dL 0.3 Alkaline Phosphatase 34 - 123 U/L 205 (H) ALT 7 - 38 U/L 9 AST 13 - 35 U/L 11 (L) Anion Gap 9 - 18 mmol/L 9 NT Pro BNP <125 pg/mL 5,147 (H) eGFR >=60 mL/min/1.73m 99 (L): Data is abnormally low (H): Data is abnormally high CONCLUSIONS: 1. SPECT Perfusion Study: Normal. 2. There is no scintigraphic evidence for inducible ischemia. 3. No evidence of scarred myocardium. 4. Left ventricle is normal in size. The left ventricle systolic function is normal. 5. This is a low risk scan. Gated Stress IR:3D LVEF % 70 Echocardiogram 02/2022: I have personally reviewed the Laboratory Testing and Echocardiogram. COUNSELING: We discussed the following non-pharmacological measures during this visit: Smoking and alcohol abstinence/cessation, if applicable Dietary and medication compliance Monitoring daily weights and blood pressures Exercise regimen When to call our office Heart Failure Education Booklet: Previously given. Discussed red flags and when to call MD/RN BABY or go to ED. Medications reconciled at end of visit: yes I spent 30 minutes in this visit, with more than 50% of the time devoted to patient counseling. SIGNATURE: Ayan Wallis APRN.CNP PATIENT NAME: Shade Brambila DATE: December 17, 2023 TIME: 1055 documented in this encounter [facility] 12-17-2023 Instructions Ayan Wallis APRN.CNP - 12/17/2023 10:52 AM EDT Continue current medications as prescribed. BMP labs to be drawn in 1-2 weeks. Continue with lasix as needed for weight gain 3-4 lbs in 1-2 days. Monitor blood pressure 3-4 hours after morning medication. 2. Weigh yourself daily. Call me if your weight increases by 3-4 pounds in a 1-4 day period of time. 3. Continue low salt (2000 mg per day) diet. 4. Be as active as you are able. If you get tired, just stop and rest for a while. 5. Come back and see me on WednesdayJune 09 at 1:00. If you have any question or concern, you can call me at [phone]. documented in this encounter [facility] 12-10-2023 Miscellaneous Notes Answer Assessment - Initial Assessment Questions Please sign CAM order for B12 Protocols used: Information Only Call - No [id number] documented in this encounter [facility] 12-06-2023 Miscellaneous Notes NORA 12/01/23 Viktoriya NOV 03/06/24 Reece documented in this encounter [facility] 11-29-2023 Miscellaneous Notes Requester: Pharmacy Last Visit in Endocrinology: Provider name: Giovanni Cerrato MD , Date 06/14/2023 Next Scheduled Appt in Endo: 04/17/2024 Last Refill: 03/30/2023 Med updated only Number of Refills given: 0 Requested Prescriptions Pending Prescriptions Disp Refills metFORMIN (GLUCOPHAGE) 1,000 mg tablet [Pharmacy Med Name: METFORMIN HCL 1,000 MG TABLET] 180 tablet 3 Sig: TAKE 1 TABLET BY MOUTH TWICE DAILY WITH MEALS. E11.3599 Please review and advise. Rimma Laws MA documented in this encounter [facility] 11-25-2023 History of Presen t illness Narrative Gynecologic Oncology Note [facility] Referring provider: Dr. Post Chief complaint: Surveillance HPI: This is a 63 year old patient s/p RA-TLH/BSO, cystoscopy for FIGO grade 1 EAC of the uterus. She is doing well. Recently had more toes amputated in right foot so recovering from that. Denies N/V/C/D, VB/VD. ROS: 14 point ROS negative unless indicated in above HPI. Oncologic history: Oncology History Endometrial cancer (HCC) 08/09/2023 Initial Diagnosis Endometrial cancer (HCC) 08/19/2023 Surgery RA-TLH/BSO, cystoscopy. Non-mapping sentinel nodes, frozen FIGO grade 1 and < 50 % myoinvasion. Lymph node dissection deferred. Final stage IA (IA2 -2023). MMR intact. Medical history: PAST MEDICAL HISTORY Diagnosis Date Charcot left foot due to diabetes mellitus (HCC) 05/2013 subsequent to left foot fracture Congestive heart failure (HCC) Depression Diabetes (HCC) Diabetic ulcer of posterior right heel (HCC) 02/06/2020 Endometrial cancer (HCC) Foot fracture, left 05/2013 Charcot neuroarthropathy HTN (hypertension) Obesity NELLY (obstructive sleep apnea) Renal disorder on vasotec to protect kidneys rt diabetes since 1998. 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 Menopause at 46. Remote h/o of abnormal pap smears. Family history: Family History Problem Relation Age of Onset Hypertension Mother other (polycystic kidney disease) Mother Heart Father CHF Hypertension Father Diabetes Brother other (testicular cancer) Brother Coronary Artery Disease Brother MD and at age 45 other (CHF) Paternal Grandmother Cancer Paternal Aunt breast CA Social history: Social History Tobacco Use Smoking status: Never Passive exposure: Never Smokeless tobacco: Never Vaping Use Vaping Use: Never used Substance Use Topics Alcohol use: Yes Comment: Occ - 3 glasses of wine a year Drug use: No Medications: Current Outpatient Medications Medication Sig Dispense Refill acetaminophen (TYLENOL) 325 mg tablet Take 3 tablets by mouth every 6 hours. 60 tablet 0 ondansetron (ZOFRAN) 4 mg tablet Take 1 tablet by mouth every 6 hours as needed. 30 tablet 0 oxyCODONE IR (ROXICODONE) 5 mg immediate release tablet Take 1 tablet by mouth every 6 hours as needed. 12 tablet 0 polyethylene glycol 3350 (MIRALAX) 17 gram/dose powder Take 17 g by mouth as directed. Dissolve dose in 4 - 8 ounces of liquid and take as directed. 476 g 0 Senna 8.6 mg tab Take 1 tablet by mouth once daily. 60 tablet 0 ascorbic acid (VITAMIN C ORAL) Take by mouth. aspirin, enteric coated (ASPIRIN, ENTERIC COATED) 81 mg EC tablet Take 81 mg by mouth once daily. insulin regular human, CONCENTRATED 500 UNIT/ML, (HUMULIN R) 500 unit/mL (3 mL) inpn 50 units sc at breakfast, 100 units at lunch, 70 units at supper. 42 mL 3 fluticasone (FLONASE) 50 mcg/actuation nasal spray Use 2 Sprays in each nostril once daily. (Patient taking differently: Use 2 Sprays in each nostril as needed.) 1 Each 3 cyanocobalamin, vitamin B-12, 1,000 mcg/mL kit 1,000 mcg by INJECTION(UNSPECIFIED PARENTERAL ROUTES) route once every month. furosemide (LASIX) 40 mg tablet Take 1 tablet by mouth as needed. Take 0.5 tablet (20 mg) as needed JARDIANCE 25 mg tablet take 1 tablet by mouth every day with breakfast (Patient taking differently: Take 25 mg by mouth daily with lunch.) 90 tablet 3 metFORMIN (GLUCOPHAGE) 1,000 mg tablet Take 1 tablet by mouth daily with lunch. E11.3599 CPAP/BIPAP/OTHER New set up: Settings 5 - 15 cm H2O, suitable mask per pt preference, chin strap, head gear, humidity, tubing, lifetime supplies. G47.33 NELLY 1 Each 0 Zinc 50 mg tab Take 50 mg by mouth once daily. atorvastatin (LIPITOR) 80 mg tablet Take 1 tablet by mouth once daily. 90 tablet 3 multivit,thx,calcium,iron,mins (MULTIVITAMIN AND MINERAL ORAL) Take 1 tablet by mouth once daily. blood sugar diagnostic (ACCU-CHEK JOSE PLUS TEST STRP) test strip USE TO TEST BLOOD GLUCOSE 3 TIMES DAILY. 300 Strip 1 ibuprofen (ADVIL ORAL) Take 3 tablets by mouth as needed. FLUoxetine (PROZAC) 40 mg capsule Take by mouth q 24 HR. lancets (ONE TOUCH DELICA) 33 gauge USE TO BLOOD GLUCOSE 3 TIMES DAILY. INSULIN DEPENDENT E11.3299, E11.65, Z79.4 300 Each 3 insulin needles, DISPOSABLE, (BD INSULIN PEN NEEDLE UF) 31 gauge x 5/16 FOUR DAILY FOR INSULIN INJECTIONS. 400 Each 1 enalapril (VASOTEC) 10 mg tablet Take 1 tablet by mouth once daily. 90 tablet 3 Blood-Glucose Meter misc Use to test blood glucose 3 times daily. Insulin Dependent E11.3299, E11.65, Z79.4 1 Each 0 Cholecalciferol, Vitamin D3, 50 mcg (2,000 unit) cap Take 1 tablet by mouth once daily. Blood Pressure Monitor Please monitor blood pressure 1-2 hours after taking morning medications. 1 Kit 0 No current facility-administered medications for this visit. PE: EGOG PS 2 BP 157/87 (BP Site: Right Arm, BP Position: Sitting, BP Cuff Size: Regular Adult) Pulse 96 Temp 36.6 C (97.9 F) (Oral) Wt 98.9 kg (218 lb) SpO2 94% BMI 33.15 kg/m Gen: well-appearing, NAD Abd: soft, obese, NTTP, 5 port sites well-healed Pelvic: declined/deferred due to recent foot surgery/wrapped Labs/Imaging: FINAL DIAGNOSIS A. Uterus, cervix, bilateral fallopian tubes and ovaries, total robotic laparoscopic hysterectomy with bilateral salpingo-oophorectomy: -- Endometrium: Endometrial adenocarcinoma, endometrioid type FIGO grade 1, invades 31% (6/19 mm) of myometrium, see comment and case summary. -- Myometrium: Leiomyoma and adenomyosis. -- Cervix: Negative for cervical stromal involvement. -- Bilateral fallopian tubes: Negative for carcinoma. -- Bilateral ovaries: Bilateral fibrothecoma. A/P: This is a 63 year old patient with stage IA FIGO grade 1 EAC of the uteus (2022 stage IA2) here for surveillance. Endometrial cancer: - Nodes deferred due to non-mapping, frozen results, and some issues with intraoperative ventilation - No further adjuvant therapy recommended - MMR intact - RTC in 3 months Alfredo Ureña MD, MPH Gynecologic Oncologist Medical Decision Making: Problems: Low: Stable chronic illness Data: Unique test result(s) reviewed: 2 Risk: Minimal: Minimal risk from testing/treatment Medical Decision Making Level: 3 - Low documented in this encounter [facility] 11-24-2023 Miscellaneous Notes Called patient back to obtain more information. Patient state's she is messaging Dr. Cerrato because she has an order from [facility] to have a Steroid Injection in her shoulder/Back and is trying to schedule at [facility] and left a message 2 days ago with Interventional Radiology Scheduling but did not get a call back within 24 hours. She was very upset and wanted Dr. Cerrato to be aware because he is The President of [facility] She has since heard back from [facility] but they cannot get her in for 1 month so she has chosen to use another facility outside [facility] to have this completed. Reviewed appropriate channels to voice [facility] related concerns, as this message portal is for medical advice only and for endocrine related questions, the condition that she see's Dr Cerrato for. She stated understanding. Closed. documented in this encounter [facility] 11-04-2023 Miscellaneous Notes 2nd attempt to call patient and reschedule appt. left with dates and times. Office number left for patient to call back and reschedule. Ayan Wallis APRN.HEEL CURVER documented in this encounter [facility] 10-08-2023 History of Presen t illness Narrative Problem list reviewed. CHIEF COMPLAINT: RT 3rd toe ulcer and RT posterior lower leg wound s/p RT 3rd toe perc flexor tenotomy (DOS 07/26/23) g90 DM II A1c 9.1 (down from 10.3) DLS 08/02/23 HISTORY OF PRESENT ILLNESS: Patient is here in wound center for check RT lower leg ulcer RT 3rd toe ulcer. LAST SEEN 1 week ago. her circade wrap for her right lower extremity are in. got dm shoes and new inserts. her RT lower leg wound has healed. no issues with that. Her right 3rd toe ulcer is worse with increasing drainage and depth. denies N/V/F/C. Denies N/V/F/C/D/SOB/CP/LP She goes back to work 12/06/23. She is currently working from home. She is driving. She uses a cane. She relates she can't feel feet well due to neuropathy. She has numbness and toe amputations. Referred by Dr. Dasilva. 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 Right 2nd toe amputation and hallux I&D 10/28/22. rx circade wraps 08/14/22 DME DM inserts 08/24/23 CURRENT MEDICATIONS: Clindamycin HCl Oral Capsule 300 MG (11/26/2022) TAKE 1 CAPSULE BY MOUTH EVERY 8 HOURS FOR 7 DAYS. oxyCODONE-Acetaminophen Oral Tablet 5-325 MG (10/28/2022) Ketorolac Tromethamine Ophthalmic Solution 0.5 % (04/26/2023) Accu-Chek Jose Plus In Vitro Strip (09/23/2022) Sulfamethoxazole-Trimethoprim Oral Tablet 800-160 MG (06/24/2023) Atorvastatin Calcium Oral Tablet 80 MG (06/13/2023) miSOPROStol Oral Tablet 200 MCG (06/15/2023) TAKE 2 TABLETS BY MOUTH THE DAY PRIOR TO PROCEDURE AT BEDTIME WITH FOOD Fluticasone Propionate Nasal Suspension 50 MCG/ACT (12/15/2022) USE 2 SPRAYS IN EACH NOSTRIL DAILY X1 WEEK,THEN 1 SPRAY IN EACH NOSTRIL DAILY THEREAFTER NEEDED Nitrofurantoin Monohyd Macro Oral Capsule 100 MG (02/08/2023) Cephalexin Oral Capsule 500 MG (09/26/2022) Doxycycline Hyclate Oral Capsule 100 MG (11/10/2022) Fluconazole Oral Tablet 200 MG (06/24/2023) Take 1 tablet once a day for 21 day(s) Bactrim DS Oral Tablet 800-160 MG (06/24/2023) Take 1 tablet twice a day for 10 day(s) Cipro Oral Tablet 500 MG (06/11/2023) Take 1 tablet twice a day for 7 day(s) Doxycycline Hyclate Oral Tablet 100 MG (06/08/2023) Take 1 tablet twice a day for 7 day(s) Ciprofloxacin HCl Oral Tablet 500 MG (11/10/2022) Take 1 tablet twice a day for 7 day(s) Cephalexin Oral Tablet 500 MG (10/23/2022) Take 1 tablet three times a day for 7 day(s) Ofloxacin Ophthalmic Solution 0.3 % (03/30/2023) diazePAM Oral Tablet 10 MG (02/19/2022) TAKE 1 TABLET 60 MIN BEFORE TEST Atorvastatin Calcium Oral Tablet 40 MG (11/18/2022) FLUoxetine HCl Oral Capsule 40 MG (01/26/2022) Enalapril Maleate Oral Tablet 10 MG (01/26/2022) TAKE 1 TABLET BY MOUTH EVERY DAY Erythromycin Ophthalmic Ointment 5 MG/GM (02/09/2022) APPLY 1 A SMALL AMOUNT LEFT EYE 4 TIMES A DAY Atorvastatin Calcium Oral Tablet 20 MG (01/26/2022) TAKE 1 TABLET BY MOUTH EVERY DAY Spironolactone Oral Tablet 25 MG (06/15/2023) TAKE 0.5 TABLETS BY MOUTH ONCE DAILY. Jardiance Oral Tablet 25 MG (06/14/2023) TAKE 1 TABLET BY MOUTH EVERY DAY WITH BREAKFAST Furosemide Oral Tablet 40 MG (11/18/2022) HumuLIN R U-500 KwikPen Subcutaneous Solution Pen-injector 500 UNIT/ML (06/14/2023) INJECT 40 UNITS SUBCUTANEOUSLY AT BREAKFAST, 100 UNITS AT LUNCH, 80 UNITS AT SUPPER. metFORMIN HCl Oral Tablet 1000 MG (11/23/2022) TAKE 1 TABLET BY MOUTH TWICE DAILY WITH MEALS. E11.3599 ALLERGIES: Band-Aid [place] Surg Dressing Other Bandaging Tape Other PAST MEDICAL HISTORY: Podiatry History remarkable for Foot Numbness, Fungal Nails, Leg or Foot Ulcers. The patient has a past medical history of Arthritis, Depression, DM-Medication Dependent, Poor Circulation. Neuropathy High Cholesterol SURGICAL HISTORY: Hand Tonsils HOSPITALIZATIONS: None Noted SOCIAL HISTORY: Smoking Status: Never smoker; Last Reviewed: 09/14/2023 Alcohol use: social drinker No drug use Social History Reviewed (01/16/2021 11:20:18 AM EST) FAMILY HISTORY: There is a family history of Denial of any knowledge of significant family history. Denial of any knowledge of significant family history Family History Reviewed (01/16/2021 11:20:19 AM EST) REVIEW OF SYSTEMS: Psychologic: Admits to No psych symptoms. Review of systems otherwise negative PHYSICAL EXAMINATION: Vital Signs: Weight 235 lbs; Height 5 ft 8 in; BMI 35.7 10/05/2023 10:45 AM (EST) Temperature 98.6 F; Pulse Rate 100 bpm; Blood Pressure 120 / 80 mm/Hg Vascular Exam: BL Foot DP / PT pulses +2/4. 2+ edema B/L LE CFT less than 3 seconds to digits, skin temp warm to warm from proximal to distal BL Foot Dermatologic Exam: RIGHT 3rd toe distal tuft ulcer including nail bed is 0.5x0.5x0.1cm and post 0.6x0.6x3cm into fat/fascia, mild serosang drainage. There is increasing redness and erythema, pus noted on exam, there is warmth, no streaking, no probe to bone but near bone RT lower leg posterior wound healed RT 1st MTPJ callus Nails 1-5 left and 4-5 RT Bilateral are thickened, elongated and discolored with subungual debris. The nails are greater than .3mm in thickness. The discoloration is yellowish in color. Innerspaces 1-4 LT and 3,4 RT are clean dry and intact. Skin texture and turgor are decreased. absent or decreased hair growth bilateral. nail changes bilateral Neurologic Exam: Comments/Other Findings: Vibratory sensations decreased BL at the MPJ, Protective sensations absent BL tested with 5.07 monofilament, and light, sharp, and temperature sensations intact bl. Muscle Testing of the Extensors, Flexors, Evertors (peroneals), and Invertors (posterior tibialis) BL leg shows 5/5 testing noted. Normal Babinski test noted bl foot after testing Orthopedic Exam: Additional Orthopedic Findings: RIGHT great toe amp at MTPJ RIGHT 2nd toe amputation noted no palpation of sesamoids sub R 1st MTPJ RT 3rd toe contracture reduced. toe is rectus and straight. no flexion s/p flexor tenotomy RIGHT foot contracture of lesser digits 4,5. DIAGNOSIS: Type II diabetes mellitus with neurological manifestations Lymphedema of both lower extremities PVD (peripheral vascular disease) History of amputation of right great toe Amputated toe of right foot Hammertoe of right foot Personal history of diabetic foot ulcer Cellulitis of right toe Callus Diabetic ulcer of toe of left foot associated with type 2 diabetes mellitus, limited to breakdown of skin Ulcer of right lower extremity, limited to breakdown of skin Skin ulcer of third toe of right foot with fat layer exposed Swelling of right lower extremity PLAN AND TREATMENT: ASSESMENT & PLAN BL Foot and Ankle and Lower extremity Exam and Evaluation carried out with a treatment plan reviewed with the patient and findings discussed with patient including alternatives, benefits, complications and risks PREVIOUS TESTS / IMAGING / X-RAY EXAM 11/10/22 right foot XR: there is partial great toe noted with no sign of infection. second toe MPJ amp with met head resection noted. 12/22/21 PVR RESULTS: RIGHT SIDE Resting right ankle brachial index: 1.37Right toe brachial index: 0.70Normal ankle brachial index at rest in the right leg. Normal toe brachial index at rest in the right leg. Right ankle: Normal at rest. LEFT SIDE Resting left ankle brachial index: 1.33Left toe brachial index: 0.83Normal ankle brachial index at rest in the left leg. Normal toe brachial index at rest in the left leg. Left ankle: Normal at rest. 11/26/22 CULTURE: Streptococcus mitis-oralis, Staphylococcus epidermidis 11/23/22 left foot XR [facility]: Previous amputation of the second toe and the head of the second metatarsal. Remote healed fracture of the neck of the fifth metatarsal. Previous amputation of the distal phalanx of the great toe. Prominent plantar calcaneal spur. No definite bony destructive change is seen. No soft tissue gas or foreign body. 06/08/23 right foot XR: There was noted to be normal joint spaces unless noted. No fractures or dislocations noted. No soft tissue edema or emphysema noted. No osteopenia or sclerosis noted. There is partial great toe noted with no sign of infection. second toe MPJ amp with met head resection noted 06/08/23 right great toe wound Cx: PsAg PREVIOUS Xrays taken AP MO LAT RIGHT Foot weightbearing. X-ray safety and precautions were reviewed with patient and a lead apron was applied to patient. There was noted to be normal joint spaces unless noted. No fractures or dislocations noted. No soft tissue emphysema noted. there is edema at great toe amp site. No osteopenia or sclerosis noted. There is R great toe amp noted with no sign of infection. tibial and fibular sesamoid excised, there is small calcified piece of fibular sesamoid bone noted to plantar lateral 1st met. second toe MPJ amp with met head resection noted. no interval change. 09/16/23 RIGHT foot xray PENDING PREVIOUS 06/18/23 s/p R great toe amputation, I&D deep multiple areas, debridement into level of bone, excision tibia and fibular sesamoid, bone biopsy R 1st met head Post lavage wound culture negative. Bone biopsy prox margin 1st met head positive for emmy parapsilosis (sensitiviies pending) and positive for staph pettenkoferi one colony (sensitive to bactrim). completed bactrim course. Dr Barnes ID at wound center rec one month total treatment of fluconazole. she completed this. RT posterior lower leg wound remains healed TODAY treating RT third toe wound with Excisional debridement carried out of the wound with non selective sharp excisional debridement past the dermis into fat/fascia level with use of curette and 15 scalpel bladed debriding non viable tissue out of wound. We then flushed out the wound with wound and put dressing on. Discussed importance in offloading, proper nutrition including blood sugar control and getting enough protein and vitamins, infection prevention, proper wound care in wound healing. Also discussed detrimental impact of smoking on healing. Reviewed proper wound care with patient. To not soak wound but to clean appropriately. To watch for signs of infection both local and systemic. These were reviewed with the patient. If seen to contact office or go to ED. To continue wound care consisting of washing the wound with betadine and apply adaptic, alginate, 4x4 gauze, kerlix. change daily xray reviewed right foot with patient. no OM RT 3rd toe noted however clinically much worse Previous wound culture growing PsAg. wound is worse Rx ciprofloxacin for 7 days we took new wound culture and follow that she is frustrated and wants to be done with the wounds. we discussed right 3rd toe worsening and discussed risk of amputation here. we discussed partial of 3rd toe versus TMA. i rec TMA as this would give her less chance for future problems. she already has hammertoes to 4 and 5 and will likely have issues with these in future if only elects for partial 3rd toe amp. She wants to proceed with TMA of RT foot as outpatient. we discussed keeping met heads for stability. ordered a1c to check. was 9 about 1 month ago. cont circade wraps RT LE. will see back in within 1 week at office to set up for outpatient surgery right foot toe amp 3,4,5. Type II diabetes mellitus with neurological manifestations 250.60 E11.49 Diagnosis Notes Drag & Drop to change diagnosis order Lymphedema of both lower extremities 457.1 I89.0 Diagnosis Notes Drag & Drop to change diagnosis order PVD (peripheral vascular disease) 443.9 I73.9 Diagnosis Notes Drag & Drop to change diagnosis order History of amputation of right great toe V49.71 Z89.411 Diagnosis Notes Drag & Drop to change diagnosis order Amputated toe of right foot 895.0 S98.131A Diagnosis Notes Drag & Drop to change diagnosis order Hammertoe of right foot 735.4 M20.41 Diagnosis Notes Drag & Drop to change diagnosis order Personal history of diabetic foot ulcer V12.29 Z86.31 Diagnosis Notes Drag & Drop to change diagnosis order Cellulitis of right toe 681.10 L03.031 Diagnosis Notes Drag & Drop to change diagnosis order Callus 700 L84 Diagnosis Notes Drag & Drop to change diagnosis order Diabetic ulcer of toe of left foot associated with type 2 diabetes mellitus, limited to breakdown of skin 250.80 E11.621 Diagnosis Notes Drag & Drop to change diagnosis order Ulcer of right lower extremity, limited to breakdown of skin 707.10 L97.911 Diagnosis Notes Drag & Drop to change diagnosis order Skin ulcer of third toe of right foot with fat layer exposed 707.15 L97.512 Diagnosis Notes Drag & Drop to change diagnosis order Swelling of right lower extremity 729.81 M79.89 documented in this encounter [facility] 10-07-2023 Instructions Portia Holguin RN - 10/07/2023 1:03 PM EST WOUND CARE INSTRUCTIONS- Shade Brambila Wound location: Right third toe - Gather supplies - Place down a clean work surface such as new paper towel or newly cleaned towel. - Clean all metal instruments with rubbing alcohol before and after each use. - Plastic garbage bag for old dressing - Wash your hands with soap and water before and after wound care. Wash your foot with dial soap and water. Dry well between the toes. - [place] wound with Betadine and allow to dry - Cover adaptic (mesh like material) followed by calcium alginate (felt like material) - Cover with 4x4's and secure with 2 conform - Change dressing every day and as needed to maintain a clean dry dressing - Moisturize skin daily Web spacing between 3-4th toes: [place] with betadine Weave calcium alginate between all of the toes Change every day Compression must be removed if: it becomes wet or soiled If you have numbness or tingling in your foot or toes If you have increased pain If toes become cold or discolored - Avoid sitting with legs in a dependent position or standing for long periods of time. - Attempt to lay flat and elevate your legs above the level of your heart 2-3 times daily, for 30 minutes at a time. - Be sure to continue walking and/or calf pumps and exercises to mimic writing the alphabet with your foot, as instructed - Control your sodium intake as instructed by provider To give your wound the best chance to heal: - Eat three balanced meals daily focusing on the protein - Control your blood sugar. Keep blood sugar less than 200 - Complete your wound care instructions as ordered - Vitamin C 500 mg twice daily - Multiple Vitamin Daily - Drink a protein shake daily - Premiere Clear or Glucerna for Diabetic patients, Nepro for renal patients and premiere for non-renal and non-diabetic patients Report any of the following signs and symptoms of infection to the Wound Center at [phone] or go to the Emergency Department: Fever or chills Increased drainage Green or yellow drainage Foul odor Increased pain Hardness around the wound Redness, warmth or swelling of the surrounding tissue Color change to the wound Evenings / Weekends / Holidays If you call the wound center at the phone number provided above, please leave a detailed message that includes your full name, birthday, and phone number. We are seeing patients during the day, so we will return your call within a 24-48 hr period in the order your call was received. There is not an on-call provider assigned to the wound center. If you have an emergency that needs to be addressed, please go to an Urgent Care or Emergency Room. Thank you for your cooperation and understanding. Due to the cold and flu season approaching us, if you have any symptoms such as a cough, fever, chills, nausea, vomiting, diarrhea, and/or body aches, please call and reschedule your appointment in the Wound Center. PLAN/ORDERS: Continue to shower keeping wounds dry Continue aggressive nutritional support to assist wound healing, focusing on increasing protein intake. A wound culture was taken from the right 3rd toe tuft. Dr. Reyes will contact you if he needs to change any therapy. Will schedule appointment at [facility] office to coordinate surgery Dr. Reyes ordered an A1c lab to be drawn. You can go to any [facility] lab to have drawn A prescription for Cipro twice daily for 7 days has been sent to the [facility]. [facility] Foot [facility] Podiatry Dr. Giovanni Reyes [place] Office [address] [address] Main Office [address] [facility] [address] [place] [address] Berny Reyes DPM/arnold/lt documented in this encounter [facility] 10-07-2023 Nurse Note Nursing Documentation Pertinent Medical History: DM2, HTN, venous insufficiency, & heart failure Wound Etiology according to patient: Pt had right great toe amputation June 18, 2023 Patient arrived via: Ambulatory with [facility]/Nursing Facility: N/A Consent captured for debridement per Dr. Alfredo Moore DPM and linda until March 2024 Consent captured for debridement per Dr. Berny Reyes DPM and linda until March 2024 Anticoagulant Therapy: N/A ACTIVE CARE PER PROVIDER: Giovanni Bolanos DPM, Hu Pickard DPM, & Alfredo Moore DPM WOUND # 1 -22 previously closed WOUND # 24, 25 previously closed WOUND # 27 LOCATION: Right dorsal Foot - intact bulla on arrival - new 11/26/22 Blister dry, intact closed skin 12/03/22, closed 12/07/22 WOUND # 26 - LOCATION: Right Great Toe - Hallux Lateral- (new 11/10/22) - closed 01/15/23, remains closed 01-28-2023 WOUND # 23 - LOCATION: Right 2nd Toe AMP Site CLOSED 03/18/23 WOUND # 28 LOCATION: Right 1st/2nd Toe Amp Site - (NEW 06/18/23) Closed 07/27/23 WOUND # 30 LOCATION: Right lateral posterior lower leg (09/16/23) closed 09/30/23 Application Dates: Grafts are complete 01/07/2023 Apligraf 01/15/2023 Apligraf 01/21/2023 Apligraf 01/27/2023 Apligraf 02/04/2023 Apligraf WOUND ASSESSMENT: Refer to Provider's Wound Assessment Note VASCULAR ASSESSMENT BY PROVIDER: See provider wound assessment note CHF History: Yes as of February 2022, Dr. Sadler in Cardiology EDEMA: Right Foot: 2+ Right Calf: 2+ Left Calf: (Not Measured 10/07/23 Visit) Left Foot (Not Measured 10/07/23 Visit) Other: N/A MEASUREMENTS: in cm Right Calf: 36.9 Right Ankle: 21.4 Left Calf: (Not Measured 10/07/23 Visit) Left Ankle: (Not Measured 10/07/23 Visit) Length: 43.0 Not Measured 10/07/23 Visit WOUND PHOTOGRAPHY: Yes x 1 DEBRIDEMENT PROCEDURE BY PROVIDER: Anesthetic Used: Insensate Other procedure: n/a Specimen collected: wound culture from wound # 29 WOUND TREATMENT PER MD ORDER: Wounds cleansed by mechanical debridement to allow provider to visualize wound base WOUND # 29 LOCATION: Right 3rd Toe Tuft (NEW 07/27/23) L: 0.6 cm x W: 0.6 cm x D: 0.3 cm DEBRIDEMENT by provider: Fascia Cleansed with: Vashe Applied to naya-wound skin: betadine, vaseline Applied to wound bed: betadine,adaptic, calcium alginate Covered and secured with: 4x4 gauze, 2 conform, tape Other: n/a Web spacing between Right 3rd-4th toes is moist Cleansed with: Vashe Applied to naya-wound skin: betadine Applied to wound bed: betadine Covered and secured with: folded gauze, 2 conform COMPRESSION: Patients own Circaid SPECIAL NEEDS: Coordination of care N/A Emotional support N/A OR set-up N/A Yarn Examiner N/A Incontinence needs N/A DISCHARGED in stable condition to: ambulatory with cane PLAN/ORDERS: Continue to shower keeping wounds dry Continue aggressive nutritional support to assist wound healing, focusing on increasing protein intake. A wound culture was taken from the right 3rd toe tuft. Dr. Reyes will contact you if he needs to change any therapy. Will schedule appointment at [facility] office to coordinate surgery Dr. Reyes ordered an A1c lab to be drawn. You can go to any [facility] lab to have drawn A prescription for Cipro twice daily for 7 days has been sent to the [facility] EDUCATION: The patient/family was instructed how to cleanse the wound(s). Visual demonstration on how to apply the dressing with teach back method. Signs & symptoms of infection were reviewed: Increased redness, swelling, pain, green/yellow drainage, fever and/or chills would all need to be evaluated by a Physician. Patient received typed home-going wound care instructions and has expressed intent to comply. OTHER EDUCATION: Dr. Reyes discussed wound progress, wound culture, possible removing remaining right foot toes in future, antibiotic, schedule at [facility] for coordinating surgery, labs, A1c, Education performed regarding lymphedema/edema: Elevation of extremity above the heart for 30 minutes three times daily and as needed Exercise such as writing the ABC's with your toes in the air, walking and/or calf pumps Wearing compression as ordered by provider Diet controlling of sodium as instructed by provider Use of medication to help control edema. UNIVERSAL PROTOCOL / SAFETY CHECKLIST - Procedure to be Performed sharp debridement of right third toe wound Sign In: 1308 A Moment of CARE was completed. Personnel directly involved with the procedure wore the appropriate PPE (Personal Protective Equipment). Patient/Surrogate Stated/Verified: PATIENT VERIFIED(optional for EMERGENT procedures): Patient name, Date of , Relevant allergies, and The intended procedure Time Out ommunication: 1308 Intended patient and procedure match the source documents. Consent documented and matches the intended procedure. No relevant labs, photos, and/or imaging studies were applicable for review. Sign Out: 1310 SIGN OUT (optional for EMERGENT procedures): All instruments, equipment, possible retained foreign bodies accounted for. Current HBOT Status: Active or Complete - see screening below WOUND CENTER HYPERBARIC OXYGEN THERAPY SCREENING 1. Is the patient diabetic? (If No, skip to question 5) Yes 2. Does the patient have a lower extremity wound? Yes 3. Is there exposed/involved tendon or bone? 4. Has the wound been present for 30 days? Yes If Yes to ALL questions above, consult the Hyperbaric Center 5. Has the patient been diagnosed with osteomyelitis? No 6. Has the patient had a previous skin graft or flap at the wound? No 7. Has the patient had or been offered vascular intervention/evaluation? No 8. Does the patient have a wound at an amputation site? Yes 9. Has the patient had radiation therapy at the site of the problem? No If Yes to ANY of questions 5-9, consult the Hyperbaric Center Portia Holguin RN/ documented in this encounter [facility] 08-17-2023 Miscellaneous Notes Spoke to Shade this afternoon to remind her of her surgery date and time which is August 19 with arrival time as 10:30 am and procedure time as 12:30 pm. Patient also made aware not to eat or drink after midnight. Patient understood. Pam Parker MA documented in this encounter [facility] 08-16-2023 Miscellaneous Notes Stephenie from [facility] calling about request for surgical clearance. Placed in Dr. Sadler in basket for review. documented in this encounter [facility] 08-09-2023 History of Presen t illness Narrative Gynecologic Oncology Consultation Note [facility] Referring provider: Dr. 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 She had some spotting in February 2023 and initially thought it was from her bladder as she had a UTI. 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 She was referred for further consultation. Of note, Ca-125 was drawn and was normal. She is doing well, never has had heavy bleeding. Occasional RLQ pain. She reports a good appetite. She did undergo hyperbaric oxygen therapy until March 18 to aid in healing of diabetic food ulcers and feels it has worsened her bladder function with increasing nocturia, urgency/frequency as well as some leakage with coughing/sneezing. ROS: 14 point ROS negative unless indicated in above HPI. Oncologic history: Oncology History No history exists. Medical history: PAST MEDICAL HISTORY Diagnosis Date Charcot left foot due to diabetes mellitus (HCC) 05/2013 subsequent to left foot fracture Congestive heart failure (HCC) Depression Diabetes (HCC) Diabetic ulcer of posterior right heel (HCC) 02/06/2020 Endometrial cancer (HCC) Foot fracture, left 05/2013 Charcot neuroarthropathy Obesity Renal disorder on vasotec to protect kidneys rt diabetes since 1998. 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 Menopause at 46. Remote h/o of abnormal pap smears. Family history: Family History Problem Relation Age of Onset Heart Father CHF Hypertension Father Hypertension Mother other (polycystic kidney disease) Mother Cancer Paternal Aunt breast CA Diabetes Brother other (CHF) Paternal Grandmother Coronary Artery Disease Brother MD and at age 45 Social history: Social History Tobacco Use Smoking status: Never Smokeless tobacco: Never Vaping Use Vaping Use: Never used Substance Use Topics Alcohol use: Yes Comment: Occ Drug use: No Medications: Current Outpatient Medications Medication Sig Dispense Refill fluticasone (FLONASE) 50 mcg/actuation nasal spray Use 2 Sprays in each nostril once daily. 1 Each 3 sulfamethoxazole-trimethoprim (BACTRIM DS) 800-160 mg per tablet Take 1 tablet by mouth two times a day. cyanocobalamin, vitamin B-12, 1,000 mcg/mL kit 1,000 mcg by INJECTION(UNSPECIFIED PARENTERAL ROUTES) route once every month. oxyCODONE-acetaminophen (PERCOCET) 5-325 mg tablet Take 1 tablet by mouth every 6 hours as needed for pain. 28 tablet 0 furosemide (LASIX) 40 mg tablet Take 1 tablet by mouth as needed. Take 0.5 tablet (20 mg) as needed JARDIANCE 25 mg tablet take 1 tablet by mouth every day with breakfast 90 tablet 3 insulin regular human, CONCENTRATED 500 UNIT/ML, (HUMULIN R) 500 unit/mL (3 mL) inpn 40 units sc at breakfast, 100 units at lunch, 80 units at supper. 42 mL 3 zinc sulfate (ZINC-220 ORAL) Take by mouth. metFORMIN (GLUCOPHAGE) 1,000 mg tablet Take 1 tablet by mouth daily with lunch. E11.3599 CPAP/BIPAP/OTHER New set up: Settings 5 - 15 cm H2O, suitable mask per pt preference, chin strap, head gear, humidity, tubing, lifetime supplies. G47.33 NELLY 1 Each 0 Blood Pressure Monitor Please monitor blood pressure 1-2 hours after taking morning medications. 1 Kit 0 Zinc 50 mg tab Take 50 mg by mouth once daily. atorvastatin (LIPITOR) 80 mg tablet Take 1 tablet by mouth once daily. 90 tablet 3 multivit,thx,calcium,iron,mins (MULTIVITAMIN AND MINERAL ORAL) Take 1 tablet by mouth once daily. blood sugar diagnostic (ACCU-CHEK JOSE PLUS TEST STRP) test strip USE TO TEST BLOOD GLUCOSE 3 TIMES DAILY. 300 Strip 1 ibuprofen (ADVIL ORAL) Take 3 tablets by mouth as needed. FLUoxetine (PROZAC) 40 mg capsule Take by mouth q 24 HR. lancets (ONE TOUCH DELICA) 33 gauge USE TO BLOOD GLUCOSE 3 TIMES DAILY. INSULIN DEPENDENT E11.3299, E11.65, Z79.4 300 Each 3 insulin needles, DISPOSABLE, (BD INSULIN PEN NEEDLE UF) 31 gauge x 5/16 FOUR DAILY FOR INSULIN INJECTIONS. 400 Each 1 enalapril (VASOTEC) 10 mg tablet Take 1 tablet by mouth once daily. 90 tablet 3 Blood-Glucose Meter misc Use to test blood glucose 3 times daily. Insulin Dependent E11.3299, E11.65, Z79.4 1 Each 0 Cholecalciferol, Vitamin D3, 50 mcg (2,000 unit) cap Take 1 tablet by mouth once daily. Current Facility-Administered Medications Medication Dose Route Frequency Provider Last Rate Last Admin cyanocobalamin 1,000 mcg injection 1,000 mcg INTRAMUSCULAR q 1 MONTH Eldon Gill DO 1,000 mcg at 07/27/23 1439 PE: EGOG PS 2 BP 179/84 (BP Site: Right Arm, BP Position: Sitting, BP Cuff Size: Large Adult) Pulse 90 Temp 36.4 C (97.6 F) (Oral) Ht 172.7 cm (5' 8) Wt 103 kg (227 lb) SpO2 98% BMI 34.52 kg/m Gen: well-appearing, NAD Abd: soft, obese, NTTP, no incisions Pelvic: speculum limited by narrow arch, moderate watery discharge, normal cervix, bimanual with long narrow vagina, smooth cervix, free cul de sac and parametria, cannot assess uterine size due to habitus Labs/Imaging: Pelvic US (05/06/23): Impression Anteflexed uterus that measures 76 mm x 41 mm x 50 mm. The central endometrial complex measures 21.7 mm in combined thickness. Endometrial pathology cannot be excluded. Both ovaries are not visualized. No adnexal masses were observed. There is no free fluid visualized in the peritoneal cavity. Recommendations Consider further clinical evaluation of the endometrial cavity. Menstrual History Cycle: menopausal Method Transabdominal, transvaginal, 3D ultrasound examination, Color Doppler examination Uterus Uterus: Visualized Uterus position: anteflexed Myometrium: heterogeneous Endometrium: thickened,irregular Cervix details: normal Uterus long 76 mm Uterus ap 41 mm Uterus tr 50 mm Uterus Vol 80.5 cm Endometrial thickness, total 21.7 mm Right Ovary Rt ovary: Not visualized Left Ovary Lt ovary: Not visualized Cul de Sac Visualized. no free fluid visualized FINAL DIAGNOSIS A. Endometrium, biopsy: - Well-differentiated endometrioid adenocarcinoma with squamous differentiation, FIGO grade 1 (see comment) Diagnosis Comment Immunostaining shows that tumor cells are focally positive for p16 and p53 (wild-type). Immunostaining also demonstrate the loss of PAX2 expression, while retained expression of PTEN. Tumor cells are retained expression of MLH1, MSH2, MSH6, and PMS2. The MMR status will be reported in an addendum report. 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 Endometrial cancer: - We reviewed the natural history of endometrial cancer and meaning of grade and stage. - Discussed that the gold standard for treatment is surgery although other options including hormone therapy and radiation therapy. - Discussed that standard treatment includes removal of the uterus, cervix, bilateral fallopian tubes/ovaries, and evaluation of lymph nodes. - Discussed multiple ways to evaluate lymph nodes although current standard of care is sentinel lymph node evaluation. Discussed ipsilateral full node dissection versus frozen section to guide node dissection if non-mapping on one or both sides. Did review up to 20-30 % risk of lymphedema if fully node dissection performed. - MMR intact. - Discussed that final stage and recommendations for adjuvant therapy will be pending final pathology. - Given the above, we will plan on a RA-TLH/BSO/SLND, cystoscopy. - We reviewed the following risks of surgery: infection, blood loss, need for transfusion, intraoperative injury to other structures, DVT/PE, nerve injuries, anesthesia related risks. Surgery: - Agrees to blood if indicated - T+S, CBC, BMP - Heparin/Ancef/SCDs - Overnight admission for observation T2DM: - A1c - Understands she has higher risk of poor wound healing CHF: - Nuclear stress test 01/2023 normal with EF 70% - Reached out to area field manager to see if further evaluation or optimization is required Alfredo Ureña MD, MPH Gynecologic Oncologist Medical Decision Making: Problems: Moderate: 2+ stable chronic illnesses High: Illness/injury w/ threat to life/body function Data: Unique source(s) for external note(s) reviewed: 3+ Unique test result(s) reviewed: 3+ Unique test(s) ordered: 3+ Independent interpretation of test from other physician/QHCP Risk: High: Decision on elective major surgery w/ risk factors Medical Decision Making Level: 5 - High documented in this encounter [facility] 07-27-2023 History of Presen t illness Narrative INFECTIOUS DISEASE WOUND CENTER NOTE Patient Name: Shade Brambila Date: 07/27/2023 ASSESSMENT: Left great toe osteomyelitis s/p amputation Proximal culture from left first metatarsal positive for Emmy Diabetes mellitus type 2 Charcot's arthropathy Obesity Chronic kidney disease Depression RECOMMENDATIONS Complete oral fluconazole 200 mg once a day for 4 weeks of treatment Discussed medication interactions with the patient Monitor for any signs of infection at the surgical site Wound care with alginate, pad and protect Follow-up in the wound center 4-6 weeks vs prn INTERVAL HISTORY: ROS done with pt and negative unless stated. No new complaints. No fevers. Pain is controlled. Still getting work up done from front office associate. MEDICATIONS: sulfamethoxazole-trimethoprim (BACTRIM DS) 800-160 mg per tablet^Take 1 tablet by mouth two times a day.^Disp: ^Rfl: (Patient not taking: Reported on 07/27/2023) cyanocobalamin, vitamin B-12, 1,000 mcg/mL kit^1,000 mcg by INJECTION(UNSPECIFIED PARENTERAL ROUTES) route once every month.^Disp: ^Rfl: oxyCODONE-acetaminophen (PERCOCET) 5-325 mg tablet^Take 1 tablet by mouth every 6 hours as needed for pain.^Disp: 28 tablet^Rfl: 0 furosemide (LASIX) 40 mg tablet^Take 1 tablet by mouth as needed. Take 0.5 tablet (20 mg) as needed^Disp: ^Rfl: JARDIANCE 25 mg tablet^take 1 tablet by mouth every day with breakfast^Disp: 90 tablet^Rfl: 3 insulin regular human, CONCENTRATED 500 UNIT/ML, (HUMULIN R) 500 unit/mL (3 mL) inpn^40 units sc at breakfast, 100 units at lunch, 80 units at supper.^Disp: 42 mL^Rfl: 3 zinc sulfate (ZINC-220 ORAL)^Take by mouth.^Disp: ^Rfl: metFORMIN (GLUCOPHAGE) 1,000 mg tablet^Take 1 tablet by mouth daily with lunch. E11.3599^Disp: ^Rfl: CPAP/BIPAP/OTHER^New set up: Settings 5 - 15 cm H2O, suitable mask per pt preference, chin strap, head gear, humidity, tubing, lifetime supplies. G47.33 NELLY ^Disp: 1 Each^Rfl: 0 Blood Pressure Monitor^Please monitor blood pressure 1-2 hours after taking morning medications.^Disp: 1 Kit^Rfl: 0 fluticasone (FLONASE) 50 mcg/actuation nasal spray^Use 2 Sprays in each nostril once daily. X 7 days then may use as needed for nasal congestion 1 spray each nostril as needed thereafter^Disp: ^Rfl: Zinc 50 mg tab^Take 50 mg by mouth once daily.^Disp: ^Rfl: atorvastatin (LIPITOR) 80 mg tablet^Take 1 tablet by mouth once daily.^Disp: 90 tablet^Rfl: 3 multivit,thx,calcium,iron,mins (MULTIVITAMIN AND MINERAL ORAL)^Take 1 tablet by mouth once daily.^Disp: ^Rfl: blood sugar diagnostic (ACCU-CHEK JOSE PLUS TEST STRP) test strip^USE TO TEST BLOOD GLUCOSE 3 TIMES DAILY.^Disp: 300 Strip^Rfl: 1 ibuprofen (ADVIL ORAL)^Take 3 tablets by mouth as needed.^Disp: ^Rfl: FLUoxetine (PROZAC) 40 mg capsule^Take by mouth q 24 HR.^Disp: ^Rfl: lancets (ONE TOUCH DELICA) 33 gauge^USE TO BLOOD GLUCOSE 3 TIMES DAILY. INSULIN DEPENDENT E11.3299, E11.65, Z79.4^Disp: 300 Each^Rfl: 3 insulin needles, DISPOSABLE, (BD INSULIN PEN NEEDLE UF) 31 gauge x 5/16^FOUR DAILY FOR INSULIN INJECTIONS.^Disp: 400 Each^Rfl: 1 enalapril (VASOTEC) 10 mg tablet^Take 1 tablet by mouth once daily.^Disp: 90 tablet^Rfl: 3 Blood-Glucose Meter misc^Use to test blood glucose 3 times daily. Insulin Dependent E11.3299, E11.65, Z79.4^Disp: 1 Each^Rfl: 0 Cholecalciferol, Vitamin D3, 50 mcg (2,000 unit) cap^Take 1 tablet by mouth once daily. ^Disp: ^Rfl: PHYSICAL EXAM: Vital signs: stable, afeb General: alert, oriented, NAD Lungs: bilaterally clear to auscultation Heart: regular rate and rhythm Abdomen: soft, non tender, non distended, BS+ Extremities: no swollen joints Skin: no rash Toe amputation site is healing Lab data: reviewed WBC (k/uL) Date Value 03/25/2023 12.12 03/22/2023 10.93 03/02/2023 13.34 02/04/2021 10.63 02/03/2021 8.27 04/01/2017 8.50 Hemoglobin (g/dL) Date Value 03/25/2023 11.9 03/22/2023 12.5 03/02/2023 12.1 02/04/2021 11.7 02/03/2021 11.7 04/01/2017 14.5 Sodium (mmol/L) Date Value 06/17/2023 139 03/29/2023 140 03/25/2023 142 02/04/2021 137 02/03/2021 129 04/01/2017 138 NA (mmol/L) Date Value 09/19/2021 141 02/05/2020 139 Potassium (mmol/L) Date Value 06/17/2023 4.5 03/29/2023 4.3 03/25/2023 3.9 02/04/2021 4.0 02/03/2021 4.6 04/01/2017 3.9 K (mmol/L) Date Value 09/19/2021 4.3 02/05/2020 4.8 CO2 Date Value 06/17/2023 26 mmol/L 03/29/2023 25 mmol/L 03/25/2023 23 mmol/L 02/04/2021 27 mmol/L 02/03/2021 24 mmol/L 02/05/2020 28 MEQ/L 04/01/2017 28 mmol/L BUN Date Value 06/17/2023 30 mg/dL 03/29/2023 34 mg/dL 03/25/2023 61 mg/dL 09/19/2021 18 MG/DL 02/04/2021 23 mg/dL 02/03/2021 29 mg/dL 02/05/2020 15 MG/DL 04/01/2017 12 mg/dL Creatinine Date Value 06/17/2023 0.79 mg/dL 03/29/2023 1.01 mg/dL 03/25/2023 1.17 mg/dL 09/19/2021 0.67 MG/DL 02/04/2021 0.96 mg/dL 02/03/2021 1.16 mg/dL 02/05/2020 1.04 MG/DL 04/01/2017 0.68 mg/dL AST (U/L) Date Value 03/02/2023 19 08/21/2022 22 02/04/2021 24 02/03/2021 29 04/01/2017 23 AST (SGOT) (U/L) Date Value 09/19/2021 21 02/05/2020 30 ALT (U/L) Date Value 03/02/2023 15 08/21/2022 12 02/04/2021 17 02/03/2021 19 04/01/2017 14 ALT (SGPT) (U/L) Date Value 09/19/2021 15 02/05/2020 22 Bilirubin, Total (mg/dL) Date Value 03/02/2023 0.3 08/21/2022 0.4 02/04/2021 0.3 02/03/2021 0.3 04/01/2017 0.5 Alkaline Phosphatase (U/L) Date Value 03/02/2023 136 08/21/2022 131 02/04/2021 139 02/03/2021 156 04/01/2017 135 Alk Phos Total (U/L) Date Value 09/19/2021 132 02/05/2020 131 Microbiology data: reviewed Imaging data: reviewed Franky Barnes MD Pager: documented in this encounter [facility] 07-27-2023 Instructions Bonnie Molina RN - 07/27/2023 1:01 PM EST WOUND CARE INSTRUCTIONS- Shade Brambila Wound location: Right 1st/2nd Toe Amputation Site - Gather supplies - Place down a clean work surface such as new paper towel or newly cleaned towel. - Clean all metal instruments with rubbing alcohol before and after each use. - Plastic garbage bag for old dressing - Wash your hands with soap and water before and after wound care. Wash your foot with dial soap and water. Dry well between the toes. Right 3rd toe Tuft: [place] wound with betadine Cover with a band-aid Change dressing every day or sooner if wet Right 3rd Toe Suture: [place] with betadine Leave open to air Every day Web spacing between 3-4th toes: [place] with betadine Weave calcium alginate between all of the toes Every day Compression must be removed if: it becomes wet or soiled If you have numbness or tingling in your foot or toes If you have increased pain If toes become cold or discolored - Avoid sitting with legs in a dependent position or standing for long periods of time. - Attempt to lay flat and elevate your legs above the level of your heart 2-3 times daily, for 30 minutes at a time. - Be sure to continue walking and/or calf pumps and exercises to mimic writing the alphabet with your foot, as instructed - Control your sodium intake as instructed by provider To give your wound the best chance to heal: - Eat three balanced meals daily focusing on the protein - Control your blood sugar. Keep blood sugar less than 200 - Complete your wound care instructions as ordered - Vitamin C 500 mg twice daily - Multiple Vitamin Daily - Drink a protein shake daily - Premiere Clear or Glucerna for Diabetic patients, Nepro for renal patients and premiere for non-renal and non-diabetic patients Report any of the following signs and symptoms of infection to the Wound Center at [phone] or go to the Emergency Department: Fever or chills Increased drainage Green or yellow drainage Foul odor Increased pain Hardness around the wound Redness, warmth or swelling of the surrounding tissue Color change to the wound Evenings / Weekends / Holidays If you call the wound center at the phone number provided above, please leave a detailed message that includes your full name, birthday, and phone number. We are seeing patients during the day, so we will return your call within a 24-48 hr period in the order your call was received. There is not an on-call provider assigned to the wound center. If you have an emergency that needs to be addressed, please go to an Urgent Care or Emergency Room. Thank you for your cooperation and understanding. Due to the cold and flu season approaching us, if you have any symptoms such as a cough, fever, chills, nausea, vomiting, diarrhea, and/or body aches, please call and reschedule your appointment in the Wound Center. PLAN/ORDERS: Return to the wound center to see Franky Barens MD (in 3 weeks) Continue aggressive nutritional support to assist wound healing, focusing on increasing protein intake. Franky Barnes MD/celina/kwesi documented in this encounter [facility] 07-27-2023 Nurse Note Nursing Documentation Pertinent Medical History: DM2, HTN, venous insufficiency, & heart failure Wound Etiology according to patient: Pt had right great toe amputation June 18, 2023 Patient arrived via: Ambulatory with [facility] Care Company/Nursing Facility: N/A Anticoagulant Therapy: N/A ACTIVE CARE PER PROVIDER: Giovanni Bolanos DPM, Hu Pickard DPM, & Alfredo Moore DPM WOUND # 1 -22 previously closed WOUND # 24, 25 previously closed WOUND # 27 LOCATION: Right dorsal Foot - intact bulla on arrival - new 11/26/22 Blister dry, intact closed skin 12/03/22, closed 12/07/22 WOUND # 26 - LOCATION: Right Great Toe - Hallux Lateral- (new 11/10/22) - closed 01/15/23, remains closed 01-28-2023 WOUND # 23 - LOCATION: Right 2nd Toe AMP Site CLOSED 03/18/23 Application Dates: Grafts are complete 01/07/2023 Apligraf 01/15/2023 Apligraf 01/21/2023 Apligraf 01/27/2023 Apligraf 02/04/2023 Apligraf WOUND ASSESSMENT: Refer to Provider's Wound Assessment Note VASCULAR ASSESSMENT BY PROVIDER: See provider wound assessment note CHF History: Yes as of February 2022, Dr. Sadler in Cardiology EDEMA: Right Foot: trace Right Calf: none Left Calf: N/A Left Foot N/A Other: N/A MEASUREMENTS: in cm Right Calf: 34.0 Right Ankle: 22.5 Left Calf: N/A Left Ankle: N/A Length: 43.0 WOUND PHOTOGRAPHY: Yes x 3 DEBRIDEMENT PROCEDURE BY PROVIDER: Anesthetic Used: Insensate Other procedure: N/A Specimen collected: N/A WOUND TREATMENT PER MD ORDER: Wounds cleansed by mechanical debridement to allow provider to visualize wound base WOUND # 28 LOCATION: Right 1st/2nd Toe Amp Site - (NEW 06/18/23) Closed 07/27/23 WOUND # 29 LOCATION: Right 3rd Toe Tuft (NEW 07/27/23) L: 0.6 cm x W: 0.5 cm x D: 0.1 cm DEBRIDEMENT by provider: n/a Cleansed with: Betadine Applied to naya-wound skin: betadine Applied to wound bed: betadine Covered and secured with: 2x2 allevyn Other: Left medial side of right 3rd toe has 1 suture intact from tendon snipping Cleansed with: betadine Applied to naya-wound skin: betadine Applied to wound bed: betadine Covered and secured with: left open to air Web spacing between Right 3rd-4th toes is moist Cleansed with: betadine Applied to naya-wound skin: betadine Applied to wound bed: calcium alginate woven between the toes Covered and secured with: COMPRESSION: Single layer tubi-tobacco wetter size D applied to right lower leg, Pt own Circaid SPECIAL NEEDS: Coordination of care N/A Emotional support N/A OR set-up N/A Yarn Examiner N/A Incontinence needs N/A DISCHARGED in stable condition to: ambulatory PLAN/ORDERS: Return to the wound center to see Franky Barnes MD (in 3 weeks) Continue aggressive nutritional support to assist wound healing, focusing on increasing protein intake. EDUCATION: The patient/family was instructed how to cleanse the wound(s). Visual demonstration on how to apply the dressing with teach back method. Signs & symptoms of infection were reviewed: Increased redness, swelling, pain, green/yellow drainage, fever and/or chills would all need to be evaluated by a Physician. Patient received typed home-going wound care instructions and has expressed intent to comply. OTHER EDUCATION: New wound care Education performed regarding lymphedema/edema: Elevation of extremity above the heart for 30 minutes three times daily and as needed Exercise such as writing the ABC's with your toes in the air, walking and/or calf pumps Wearing compression as ordered by provider Diet controlling of sodium as instructed by provider Use of medication to help control edema. UNIVERSAL PROTOCOL / SAFETY CHECKLIST - N/A Current HBOT Status: Active or Complete - see screening below WOUND CENTER HYPERBARIC OXYGEN THERAPY SCREENING 1. Is the patient diabetic? (If No, skip to question 5) Yes 2. Does the patient have a lower extremity wound? Yes 3. Is there exposed/involved tendon or bone? 4. Has the wound been present for 30 days? Yes If Yes to ALL questions above, consult the Hyperbaric Center 5. Has the patient been diagnosed with osteomyelitis? No 6. Has the patient had a previous skin graft or flap at the wound? No 7. Has the patient had or been offered vascular intervention/evaluation? No 8. Does the patient have a wound at an amputation site? Yes 9. Has the patient had radiation therapy at the site of the problem? No If Yes to ANY of questions 5-9, consult the Hyperbaric Center Active in HBO. documented in this encounter [facility] 07-26-2023 Miscellaneous Notes LMTCO and schedule new patient appt.. Bette Chaim 07/26/23 documented in this encounter [facility] 07-15-2023 History of Presen t illness Narrative Patient presents for thickened endometrium in the setting of post menopausal bleeding. PA-C attempted endometrial biopsy without success. Patient took cytotec prior to today's appointment for possible second attempt. Reviewed of US from 04/2023: 21mm endometrial stripe Discussed EMB vs hospital based D&C. Discussed utility of EMB prior to D&C. Even if EMB is benign, given thickeness of stripe, would still recommend D&C, hysteroscopy. Todays EMB may reduce chance of second anesthesia exposure if pathology was unfavorable. If unfavorable, patient may have indication for hysterectomy rather than D&C. D&C, hysteroscopy procedure discussed including risks and befits as well as post op expectations. Reviewed and updated in Epic: PMHX PSHx FHx Meds Allergies A/P: Thickened endometrium - Patient elects for office EMB prior to D&C, hysteroscopy - requests today if possible Plan based on EMB results: - D&C, hysteroscopy if no endoCA - consent signed - Referral to [facility] MANAGER-Onc for endoCA - Hyst for benign hyperplasia Results to be communicated via [facility] Patient requests EMB attempt today. UNIVERSAL PROTOCOL / SAFETY CHECKLIST Procedure to be Performed: endometrial biopsy Sign In: A Moment of CARE was completed. Personnel directly involved with the procedure wore the appropriate PPE (Personal Protective Equipment). Patient/Surrogate Stated/Verified: PATIENT VERIFIED(optional for EMERGENT procedures): Patient name, Date of , Relevant allergies, and The intended procedure Time Out Communication: Intended patient and procedure match the source documents. Consent documented and matches the intended procedure. Sign Out: SIGN OUT (optional for EMERGENT procedures): All specimen containers correctly labeled. Procedure - Patient placed herself in lithotomy position. Cervix cleansed with betadine. Single tooth tenaculum placed on anterior lip of cervix. Single pass with endometrial pipelle collected what appeared to be moderate to copious endometrial tissue. No active bleeding noted. Patient tolerated the procedure well. Discussed that this large quantity of tissue was not typical for post menopausal women and this further suggests need for D&C, hysteroscopy vs hysterectomy vs referral. Jeanie Post MD documented in this encounter [facility] 07-09-2023 Miscellaneous Notes Reason for Disposition Taking a medicine that could cause dizziness (e.g., blood pressure medications, diuretics) Answer Assessment - Initial Assessment Questions 1. DESCRIPTION: Describe your dizziness. Pt describes as feeling like I could lose my balance. Dizziness is intermittent and mostly present during the day 2. LIGHTHEADED: Do you feel lightheaded? (e.g., somewhat faint, woozy, weak upon standing) Pt reports feeling a little light-headed when walking, uses a cane 3. VERTIGO: Do you feel like either you or the room is spinning or tilting? (i.e. vertigo) Pt denies 4. SEVERITY: How bad is it? Do you feel like you are going to faint? Can you stand and walk? - MILD: Feels slightly dizzy, but walking normally. - MODERATE: Feels unsteady when walking, but not falling; interferes with normal activities (e.g., school, work). - SEVERE: Unable to walk without falling, or requires assistance to walk without falling; feels like passing out now. Mild/moderate, pt reports that she walks with a cane. Has not been modifying her activity d/t the dizziness 5. ONSET: When did the dizziness begin? Started on Friday 07/06, is overall a bit improved since onset 6. AGGRAVATING FACTORS: Does anything make it worse? (e.g., standing, change in head position) Standing worsens symptoms 7. HEART RATE: Can you tell me your heart rate? How many beats in 15 seconds? (Note: not all patients can do this) Pt reports that her B/P today at 1pm was 127/72, earlier in the week when her dizziness was more severe her B/P was 77/45. She is unable to remember her HR from earlier today 8. CAUSE: What do you think is causing the dizziness? Pt states that her cardiology provider had changed her Lasix at the end of April to 20mg PRN. Pt forgot that the dose was decreased to 20mg and took 40mg Lasix (her previous dose) on , Wednesday, and Wednesday of last week. She attributes this to causing her to become dehydrated, which in turn caused her dizziness. She has not taken the Lasix again and has increased her fluid intake, she reports improvement in her dizziness and her B/P since she increased her fluids 9. RECURRENT SYMPTOM: Have you had dizziness before? If Yes, ask: When was the last time? What happened that time? Pt reports that she felt dizziness like this in the past when she was dehydrated 10. OTHER SYMPTOMS: Do you have any other symptoms? (e.g., fever, chest pain, vomiting, diarrhea, bleeding) Pt denies fevers, chest pain, vomiting, diarrhea, and bleeding. Reports intermittently feeling hot in the face at times during the day Protocols used: Dizziness - [id number] Advised pt that recommendation is for OV within 24 hours, offered appt tomorrow with in [place]. Pt declined and states that she prefers to monitor her symptoms at home and will go to the [facility] walk-in if symptoms persist. Advised need for ER evaluation if symptoms worsen or she develops chest pain or SOB-pt verbalized understanding. Also provided pt with [facility] nurse manager operational contact information. Patient fell on the . She fell down some steps and hit her head, and her back was sore. Stated she is experiencing dizziness. She is asking for a nurse to advise if xrays can be ordered or she needs to go to the ER. She will be available until 2:30 otherwise please call her brother Ham [phone] as he will be with her at an appt this afternoon. documented in this encounter [facility] 07-09-2023 Miscellaneous Notes Pt called to report that she is still feeling dizzy despite drinking fluids and having some foods with higher sodium content. She states that she checked her BP today and it was 120s/60s. She reports that she still is feeling dizzy. She has not taken any of her medications today. She is concerned that she took Lasix three times last week and she is still dizzy. Discussed that Lasix is already out of her system as she took it over a week ago. She has continued to hold Spironolactone and is taking Enalapril however, has not taken today. Advised patient that this could be related to medications and/or dehydration but,unsure cause as she has been holding her medications and forcing fluid intake. She was advised to go to ED. Li Larkin APRN.HEEL CURVER documented in this encounter [facility] 06-29-2023 Instructions Leanna Harrison RN - 06/29/2023 2:33 PM EDT WOUND CARE INSTRUCTIONS- Shade Brambila Wound location: Right 1st/2nd Toe Amputation Site Leave Dressing intact until you see Dr. Reyes in office on . Should dressing fall off, please follow alternate wound care dressing. Alternate Dressing Right 1st/2nd Toe Amputation Site: - Gather supplies - Place down a clean work surface such as new paper towel or newly cleaned towel. - Clean all metal instruments with rubbing alcohol before and after each use. - Plastic garbage bag for old dressing - Wash your hands with soap and water before and after wound care. - [place] the incision with Betadine - Apply Xeroform (yellow mesh like material) the the incision line - Apply Calcium Alginate (felt-like material) on top of the Xeroform - Cover with an ABD pad or 4x4 gauze - Hold in place with Conform folded gauze & tape. - Apply compression single layer of tubi tobacco wetter. - Change your dressing every other day. Compression must be removed if: it becomes wet or soiled If you have numbness or tingling in your foot or toes If you have increased pain If toes become cold or discolored - Avoid sitting with legs in a dependent position or standing for long periods of time. - Attempt to lay flat and elevate your legs above the level of your heart 2-3 times daily, for 30 minutes at a time. - Be sure to continue walking and/or calf pumps and exercises to mimic writing the alphabet with your foot, as instructed - Control your sodium intake as instructed by provider To give your wound the best chance to heal: - Eat three balanced meals daily focusing on the protein - Control your blood sugar. Keep blood sugar less than 200 - Complete your wound care instructions as ordered - Vitamin C 500 mg twice daily - Multiple Vitamin Daily - Drink a protein shake daily - Premiere Clear or Glucerna for Diabetic patients, Nepro for renal patients and premiere for non-renal and non-diabetic patients Report any of the following signs and symptoms of infection to the Wound Center at [phone] or go to the Emergency Department: Fever or chills Increased drainage Green or yellow drainage Foul odor Increased pain Hardness around the wound Redness, warmth or swelling of the surrounding tissue Color change to the wound Evenings / Weekends / Holidays If you call the wound center at the phone number provided above, please leave a detailed message that includes your full name, birthday, and phone number. We are seeing patients during the day, so we will return your call within a 24-48 hr period in the order your call was received. There is not an on-call provider assigned to the wound center. If you have an emergency that needs to be addressed, please go to an Urgent Care or Emergency Room. Thank you for your cooperation and understanding. PLAN/ORDERS: Return to the wound center to see Franky Barnes MD in 4 weeks Take Fluconazole for a total of 4 weeks. New prescription sent to pharmacy for additional Fluconazole Take full coarse of Bactrim and Fluconazole Continue aggressive nutritional support to assist wound healing, focusing on increasing protein intake. Franky Barnes MD/dulce/rivka documented in this encounter [facility] 06-29-2023 History of Presen t illness Narrative Images from the original note were not included. INFECTIOUS DISEASE WOUND CENTER CONSULT PATIENT NAME: Shade Brambila DATE OF CONSULTATION: 06/29/2023 REASON FOR CONSULTATION: OM 1st metatarsal HISTORY OF PRESENT ILLNESS: The patient is a 62-year-old lady with past medical history of diabetes mellitus who was seen by podiatry service for osteomyelitis of the left first toe for which she underwent amputation. The proximal biopsy from the metatarsal that was retained and found to be hard and healthy at surgery is positive for Emmy. Infectious disease was consulted for assistance in treatment. PAST MEDICAL HISTORY Diagnosis Date Charcot left foot due to diabetes mellitus (HCC) 05/2013 subsequent to left foot fracture Depression Diabetes (HCC) Diabetic ulcer of posterior right heel (HCC) 02/06/2020 Foot fracture, left 05/2013 Charcot neuroarthropathy Menopause 46 yoa Obesity Renal disorder on vasotec to protect kidneys rt diabetes since 1998. Vitamin D deficiency 01/05/2017 PAST SURGICAL HISTORY Procedure Laterality Date AMPUTATION TOE,MT-P JT Right 07/2022 Hallux DILATION & CURETTAGE DX&/THER NONOBSTETRIC x3 EXTENSIVE HAND SURGERY Dupuytren contracture TONSILLECTOMY HX ALLERGIES ALLERGIES Allergen Reactions Amoxicillin Unknown Patient does not remember reaction Codeine Other: See Comments Patient states Makes her Hyper CURRENT OUTPATIENT MEDICATIONS cyanocobalamin, vitamin B-12, 1,000 mcg/mL kit^1,000 mcg by INJECTION(UNSPECIFIED PARENTERAL ROUTES) route once every month.^Disp: ^Rfl: JARDIANCE 25 mg tablet^take 1 tablet by mouth every day with breakfast^Disp: 90 tablet^Rfl: 3 insulin regular human, CONCENTRATED 500 UNIT/ML, (HUMULIN R) 500 unit/mL (3 mL) inpn^40 units sc at breakfast, 100 units at lunch, 80 units at supper.^Disp: 42 mL^Rfl: 3 metFORMIN (GLUCOPHAGE) 1,000 mg tablet^Take 1 tablet by mouth daily with lunch. E11.3599^Disp: ^Rfl: CPAP/BIPAP/OTHER^New set up: Settings 5 - 15 cm H2O, suitable mask per pt preference, chin strap, head gear, humidity, tubing, lifetime supplies. G47.33 NELLY ^Disp: 1 Each^Rfl: 0 Blood Pressure Monitor^Please monitor blood pressure 1-2 hours after taking morning medications.^Disp: 1 Kit^Rfl: 0 fluticasone (FLONASE) 50 mcg/actuation nasal spray^Use 2 Sprays in each nostril once daily. X 7 days then may use as needed for nasal congestion 1 spray each nostril as needed thereafter^Disp: ^Rfl: Zinc 50 mg tab^Take 50 mg by mouth once daily.^Disp: ^Rfl: atorvastatin (LIPITOR) 80 mg tablet^Take 1 tablet by mouth once daily.^Disp: 90 tablet^Rfl: 3 multivit,thx,calcium,iron,mins (MULTIVITAMIN AND MINERAL ORAL)^Take 1 tablet by mouth once daily.^Disp: ^Rfl: blood sugar diagnostic (ACCU-CHEK JOSE PLUS TEST STRP) test strip^USE TO TEST BLOOD GLUCOSE 3 TIMES DAILY.^Disp: 300 Strip^Rfl: 1 ibuprofen (ADVIL ORAL)^Take 3 tablets by mouth as needed.^Disp: ^Rfl: FLUoxetine (PROZAC) 40 mg capsule^Take by mouth q 24 HR.^Disp: ^Rfl: lancets (ONE TOUCH DELICA) 33 gauge^USE TO BLOOD GLUCOSE 3 TIMES DAILY. INSULIN DEPENDENT E11.3299, E11.65, Z79.4^Disp: 300 Each^Rfl: 3 insulin needles, DISPOSABLE, (BD INSULIN PEN NEEDLE UF) 31 gauge x 5/16^FOUR DAILY FOR INSULIN INJECTIONS.^Disp: 400 Each^Rfl: 1 enalapril (VASOTEC) 10 mg tablet^Take 1 tablet by mouth once daily.^Disp: 90 tablet^Rfl: 3 Blood-Glucose Meter misc^Use to test blood glucose 3 times daily. Insulin Dependent E11.3299, E11.65, Z79.4^Disp: 1 Each^Rfl: 0 Cholecalciferol, Vitamin D3, 50 mcg (2,000 unit) cap^Take 1 tablet by mouth once daily. ^Disp: ^Rfl: oxyCODONE-acetaminophen (PERCOCET) 5-325 mg tablet^Take 1 tablet by mouth every 6 hours as needed for pain.^Disp: 28 tablet^Rfl: 0 (Patient not taking: Reported on 06/29/2023) furosemide (LASIX) 40 mg tablet^Take 1 tablet by mouth as needed. Take 0.5 tablet (20 mg) as needed ^Disp: ^Rfl: (Patient not taking: Reported on 06/29/2023) miSOPROStol (CYTOTEC) 200 mcg tablet^Take 2 tablets by mouth the day prior to procedure at bedtime with food^Disp: 2 tablet^Rfl: 0 (Patient not taking: Reported on 06/29/2023) zinc sulfate (ZINC-220 ORAL)^Take by mouth.^Disp: ^Rfl: (Patient not taking: Reported on 06/29/2023) spironolactone (ALDACTONE) 25 mg tablet^Take 12.5 mg by mouth once daily. Take every other day^Disp: ^Rfl: FAMILY HISTORY Problem Relation Age of Onset Heart Father CHF Hypertension Father Hypertension Mother other (polycystic kidney disease) Mother Cancer Paternal Aunt breast CA Diabetes Brother other (CHF) Paternal Grandmother Coronary Artery Disease Brother MD and at age 45 Social History Tobacco Use Smoking status: Never Smokeless tobacco: Never Vaping Use Vaping Use: Never used Substance Use Topics Alcohol use: Yes Comment: Occ Drug use: No REVIEW OF SYSTEMS Full 10 Review of Systems done and negative unless stated in HPI. PHYSICAL EXAM: Vital signs: stable, afeb General: alert, oriented, NAD Lungs: bilaterally clear to auscultation Heart: regular rate and rhythm Abdomen: soft, non tender, non distended, BS+ Extremities: Great toe amputation site is sutured together. Erythema present without any warmth or purulent drainage. Skin: no rash DATA WBC (k/uL) Date Value 03/25/2023 12.12 03/22/2023 10.93 03/02/2023 13.34 02/04/2021 10.63 02/03/2021 8.27 04/01/2017 8.50 Hemoglobin (g/dL) Date Value 03/25/2023 11.9 03/22/2023 12.5 03/02/2023 12.1 02/04/2021 11.7 02/03/2021 11.7 04/01/2017 14.5 Sodium (mmol/L) Date Value 06/17/2023 139 03/29/2023 140 03/25/2023 142 02/04/2021 137 02/03/2021 129 04/01/2017 138 NA (mmol/L) Date Value 09/19/2021 141 02/05/2020 139 Potassium (mmol/L) Date Value 06/17/2023 4.5 03/29/2023 4.3 03/25/2023 3.9 02/04/2021 4.0 02/03/2021 4.6 04/01/2017 3.9 K (mmol/L) Date Value 09/19/2021 4.3 02/05/2020 4.8 CO2 Date Value 06/17/2023 26 mmol/L 03/29/2023 25 mmol/L 03/25/2023 23 mmol/L 02/04/2021 27 mmol/L 02/03/2021 24 mmol/L 02/05/2020 28 MEQ/L 04/01/2017 28 mmol/L BUN Date Value 06/17/2023 30 mg/dL 03/29/2023 34 mg/dL 03/25/2023 61 mg/dL 09/19/2021 18 MG/DL 02/04/2021 23 mg/dL 02/03/2021 29 mg/dL 02/05/2020 15 MG/DL 04/01/2017 12 mg/dL AST (U/L) Date Value 03/02/2023 19 08/21/2022 22 02/04/2021 24 02/03/2021 29 04/01/2017 23 AST (SGOT) (U/L) Date Value 09/19/2021 21 02/05/2020 30 ALT (U/L) Date Value 03/02/2023 15 08/21/2022 12 02/04/2021 17 02/03/2021 19 04/01/2017 14 ALT (SGPT) (U/L) Date Value 09/19/2021 15 02/05/2020 22 Bilirubin, Total (mg/dL) Date Value 03/02/2023 0.3 08/21/2022 0.4 02/04/2021 0.3 02/03/2021 0.3 04/01/2017 0.5 Alkaline Phosphatase (U/L) Date Value 03/02/2023 136 08/21/2022 131 02/04/2021 139 02/03/2021 156 04/01/2017 135 Alk Phos Total (U/L) Date Value 09/19/2021 132 02/05/2020 131 MICROBIOLOGY: Reviewed IMAGING: Reviewed ASSESSMENT AND PLAN Left great toe osteomyelitis s/p amputation Proximal culture from left first metatarsal positive for Emmy Diabetes mellitus type 2 Charcot's arthropathy Obesity Chronic kidney disease Depression RECOMMENDATIONS Continue oral fluconazole 200 mg once a day to complete total of 4 weeks of treatment Discussed medication interactions with the patient Monitor for any signs of infection at the surgical site Wound care with alginate, pad and protect Follow-up in the wound center in about 4 weeks I discussed the plan in detail with the patient and the patient verbalizes understanding and is in agreement. Franky aBrnes MD Pager: documented in this encounter [facility] 06-29-2023 Nurse Note Nursing Documentation Pertinent Medical History: DM2, HTN, venous insufficiency, & heart failure Wound Etiology according to patient: Pt had right great toe amputation June 18, 2023 Patient arrived via: Ambulatory with [facility] Care AQS/Nursing Facility: N/A Consent captured for debridement per Dr Cici KENNEY and linda until May 2023 Consent captured for debridement per Dr. Neeraj KENNEY and linda until May 2023 Consent captured for debridement per Dr. Alfredo Moore DPM and linda until May 2023 Anticoagulant Therapy: N/A ACTIVE CARE PER PROVIDER: Giovanni Bolanos DPM, Hu HAM, & Alfredo Moore DPM WOUND # 1 -22 previously closed WOUND # 24, 25 previously closed WOUND # 27 LOCATION: Right dorsal Foot - intact bulla on arrival - new 11/26/22 Blister dry, intact closed skin 12/03/22, closed 12/07/22 WOUND # 26 - LOCATION: Right Great Toe - Hallux Lateral- (new 11/10/22) - closed 01/15/23, remains closed 01-28-2023 WOUND # 23 - LOCATION: Right 2nd Toe AMP Site CLOSED 03/18/23 Application Dates: Grafts are complete 01/07/2023 Apligraf 01/15/2023 Apligraf 01/21/2023 Apligraf 01/27/2023 Apligraf 02/04/2023 Apligraf WOUND ASSESSMENT: Refer to Provider's Wound Assessment Note VASCULAR ASSESSMENT BY PROVIDER: See provider wound assessment note CHF History: Yes as of February 2022, Dr. Sadler in Cardiology EDEMA: Right Foot: 2+ Right Calf: 3+ Left Calf: N/A Left Foot N/A Other: N/A MEASUREMENTS: in cm Right Calf: 33.5 Right Ankle: 24.0 Left Calf: N/A Left Ankle: N/A Length: 43.0 WOUND PHOTOGRAPHY: Yes x 1 DEBRIDEMENT PROCEDURE BY PROVIDER: Anesthetic Used: Insensate Other procedure: N/A Specimen collected: N/A WOUND TREATMENT PER MD ORDER: Wounds cleansed by mechanical debridement to allow provider to visualize wound base WOUND # 28 LOCATION: Right 1st/2nd Toe Amp Site - (NEW 06/18/23) - 13 intact sutures, erythema around incision site INCISION LINE - L: 6.5 cm DEBRIDEMENT by provider: N/A Post debridement measurements (if applicable) : L: cm x W: cm x D: cm Cleansed with: NS, Betadine Applied to naya-wound skin: Applied to wound bed: Xeroform, Calcium Alginate Covered and secured with: ABD, Conform, tape Other: Area of concern : right achilles - stable scab noted COMPRESSION: Single layer tubi-tobacco wetter size D applied to right lower leg, Pt own Circaid SPECIAL NEEDS: Coordination of care N/A Emotional support N/A OR set-up N/A Yarn Examiner N/A Incontinence needs N/A DISCHARGED in stable condition to: Wheelchair to Dr. Gill office PLAN/ORDERS: Return to the wound center to see Franky Barnes MD in 4 weeks Take Fluconazole for a total of 4 weeks. New prescription sent to pharmacy for additional Fluconazole Take full coarse of Bactrim and Fluconazole Continue aggressive nutritional support to assist wound healing, focusing on increasing protein intake. EDUCATION: The patient/family was instructed how to cleanse the wound(s). Visual demonstration on how to apply the dressing with teach back method. Signs & symptoms of infection were reviewed: Increased redness, swelling, pain, green/yellow drainage, fever and/or chills would all need to be evaluated by a Physician. Patient received typed home-going wound care instructions and has expressed intent to comply. OTHER EDUCATION: Provider discussed new amputation site, cultures from surgery. Discussed emmy in bone biopsy. Fluconazole to be taken for total of 4 weeks. Education performed regarding lymphedema/edema: Elevation of extremity above the heart for 30 minutes three times daily and as needed Exercise such as writing the ABC's with your toes in the air, walking and/or calf pumps Wearing compression as ordered by provider Diet controlling of sodium as instructed by provider Use of medication to help control edema. UNIVERSAL PROTOCOL / SAFETY CHECKLIST - N/A Current HBOT Status: Active or Complete - see screening below WOUND CENTER HYPERBARIC OXYGEN THERAPY SCREENING 1. Is the patient diabetic? (If No, skip to question 5) Yes 2. Does the patient have a lower extremity wound? Yes 3. Is there exposed/involved tendon or bone? 4. Has the wound been present for 30 days? Yes If Yes to ALL questions above, consult the Hyperbaric Center 5. Has the patient been diagnosed with osteomyelitis? No 6. Has the patient had a previous skin graft or flap at the wound? No 7. Has the patient had or been offered vascular intervention/evaluation? No 8. Does the patient have a wound at an amputation site? Yes 9. Has the patient had radiation therapy at the site of the problem? No If Yes to ANY of questions 5-9, consult the Hyperbaric Center Active in HBO. Leanna Harrison RN/RIVKA documented in this encounter [facility] 06-25-2023 Miscellaneous Notes Spoke to Marilee from [facility] Mycology Lab. Marilee states they have been trying to get ahold of the [facility] office that ordered the labs that were run, they were unable to get ahold of them. Called [phone], spoke to Herman. Lab work results faxed to [phone] Reyes with confirmation. Marilee at [facility] lab made aware of above. documented in this encounter [facility] 06-17-2023 Instructions Ayan Wallis APRN.DEBORAH - 06/17/2023 10:05 AM EDT Continue current medications as prescribed. BMP and Magnesium to be drawn today. 2. Weigh yourself daily. Call me if your weight increases by 3-4 pounds in a 1-4 day period of time. 3. Continue low salt (2000 mg per day) diet. 4. Be as active as you are able. If you get tired, just stop and rest for a while. 5. Come back and see me on October 28 at 1100. If you have any question or concern, you can call me at [phone]. documented in this encounter [facility] 06-17-2023 History of Presen t illness Narrative Images from the original note were not included. [facility] OUTPATIENT VISIT DATE June 17, 2023 OUTPATIENT VISIT TYPE ESTABLISHED PRIMARY CARE PHYSICIAN: Eldon Gill DO CHIEF COMPLAINT: Patient presents with: Breathing Problem HISTORY OF PRESENT ILLNESS: Shade Brambila is a 62 year old female who presents today for a follow-up visit in the Heart Failure Clinic. The patient was last seen in office 03/10. Patient has had 1 hospitalizations and and 2 emergency room encounters in the last 12 months. Most recent hospitalization was 10/28/2022 for amputation of right second toe. More recently, she was seen in the ED with complaints of dizziness. Diuretics were adjusted due to acute kidney injury and hypotension. Of note, patient notified office on 05/06 of recurrent episodes of dizziness. Thus, her lasix was changed to PRN. She was instructed to continue taking spironolactone every other day. Today, the patient reports feeling well. Has noticed increase in weight due to increase in appetite. Denies feeling fluid overload. Denies shortness of breath, chest pain, dizziness, lightheadedness, leg swelling, fever, chills. Reports having an issue with urine leaking. When she coughs, sneezes, or stands up she feels she is leaking urine. This started after hyperbaric therapy, end of March-April. This is new for her. Denies taking medication for overactive bladder. Has been able to drive again since her wounds have healed. Has had cataract surgery in both eyes in April. She is scheduled for toe amputation tomorrow. IMPRESSION: NYHA Functional Class: II Stage: C heart failure Shade Brambila is a 61 year-old female who presents to the Heart Failure Clinic to establish care. She appears euvolemic on examination. No changes to medications at this time. Continue to take lasix as needed. Heart rate is elevated during visit. Heart rate in the past has been mid 60-70's. Will obtain blood work to assess electrolytes. Advised her to monitor HR at home today. She states she is feeling a little nervous for her surgery tomorrow and attributes elevated HR to this. She is asymptomatic. Will discuss results with patient once they result. Continue to monitor sodium intake. Encourage exercise as tolerated. Reviewed plan of care with patient. All questions answered at this time. PLAN AND RECOMMENDATIONS: 1. Chronic heart failure with preserved ejection fraction (HCC) - ICD9: 428.9, ICD10: I50.32 (primary diagnosis) - daily weights, call office if weight increases 3-4 lbs in a 1-4 day period -2 gm low sodium diet -activity as tolerated, rest breaks as needed -spironolactone to 12.5 mg once a day -lasix 20 mg as needed -25 mg jardiance once a day -BMP today -follow up in HF Clinic 10/28 or sooner if needed 2. Primary hypertension - ICD9: 401.9, ICD10: I10 -BP suboptimal during visit 148/81 mmHg -encourage DASH/low sodium diet -encourage exercise with rest breaks as needed -goal BP <130/80 mmHg -continue home BP monitoring 3. Mixed hyperlipidemia - ICD9: 272.2, ICD10: E78.2 -continue atorvastatin -last lipid panel 08/15/2022; LDL 117 HDL 55, total 184 Follow up appointment with Dr. Sadler 07/16 PAST MEDICAL HISTORY Diagnosis Date Charcot left foot due to diabetes mellitus (HCC) 05/2013 subsequent to left foot fracture Depression Diabetes (HCC) Diabetic ulcer of posterior right heel (HCC) 02/06/2020 Foot fracture, left 05/2013 Charcot neuroarthropathy Menopause 46 yoa Obesity Renal disorder on vasotec to protect kidneys rt diabetes since 1998. Vitamin D deficiency 01/05/2017 PAST SURGICAL HISTORY Procedure Laterality Date AMPUTATION TOE,MT-P JT Right 07/2022 Hallux DILATION & CURETTAGE DX&/THER NONOBSTETRIC x3 EXTENSIVE HAND SURGERY Dupuytren contracture TONSILLECTOMY HX Social History Tobacco Use Smoking status: Never Smokeless tobacco: Never Vaping Use Vaping Use: Never used Substance Use Topics Alcohol use: Yes Comment: Occ Drug use: No Family History Problem Relation Age of Onset Heart Father CHF Hypertension Father Hypertension Mother other (polycystic kidney disease) Mother Cancer Paternal Aunt breast CA Diabetes Brother other (CHF) Paternal Grandmother Coronary Artery Disease Brother MD and at age 45 ALLERGIES Allergen Reactions Amoxicillin Unknown Patient does not remember reaction Codeine Other: See Comments Patient states Makes her Hyper CURRENT MEDICATIONS: Current Outpatient Medications Medication Sig Dispense Refill atorvastatin (LIPITOR) 80 mg tablet Take 1 tablet by mouth once daily. 90 tablet 3 Blood Pressure Monitor Please monitor blood pressure 1-2 hours after taking morning medications. 1 Kit 0 blood sugar diagnostic (ACCU-CHEK JOSE PLUS TEST STRP) test strip USE TO TEST BLOOD GLUCOSE 3 TIMES DAILY. 300 Strip 1 Blood-Glucose Meter misc Use to test blood glucose 3 times daily. Insulin Dependent E11.3299, E11.65, Z79.4 1 Each 0 Cholecalciferol, Vitamin D3, 50 mcg (2,000 unit) cap Take 1 tablet by mouth once daily. CPAP/BIPAP/OTHER New set up: Settings 5 - 15 cm H2O, suitable mask per pt preference, chin strap, head gear, humidity, tubing, lifetime supplies. G47.33 NELLY 1 Each 0 enalapril (VASOTEC) 10 mg tablet Take 1 tablet by mouth once daily. 90 tablet 3 FLUoxetine (PROZAC) 40 mg capsule Take by mouth q 24 HR. fluticasone (FLONASE) 50 mcg/actuation nasal spray Use 2 Sprays in each nostril once daily. X 7 days then may use as needed for nasal congestion 1 spray each nostril as needed thereafter furosemide (LASIX) 40 mg tablet Take 1 tablet by mouth as needed. Take 0.5 tablet (20 mg) as needed ibuprofen (ADVIL ORAL) Take 3 tablets by mouth as needed. insulin needles, DISPOSABLE, (BD INSULIN PEN NEEDLE UF) 31 gauge x 5/16 FOUR DAILY FOR INSULIN INJECTIONS. 400 Each 1 insulin regular human, CONCENTRATED 500 UNIT/ML, (HUMULIN R) 500 unit/mL (3 mL) inpn 40 units sc at breakfast, 100 units at lunch, 80 units at supper. 42 mL 3 JARDIANCE 25 mg tablet take 1 tablet by mouth every day with breakfast 90 tablet 3 lancets (ONE TOUCH DELICA) 33 gauge USE TO BLOOD GLUCOSE 3 TIMES DAILY. INSULIN DEPENDENT E11.3299, E11.65, Z79.4 300 Each 3 metFORMIN (GLUCOPHAGE) 1,000 mg tablet Take 1 tablet by mouth daily with lunch. E11.3599 miSOPROStol (CYTOTEC) 200 mcg tablet Take 2 tablets by mouth the day prior to procedure at bedtime with food 2 tablet 0 multivit,thx,calcium,iron,mins (MULTIVITAMIN AND MINERAL ORAL) Take 1 tablet by mouth once daily. spironolactone (ALDACTONE) 25 mg tablet Take 12.5 mg by mouth once daily. Take every other day Zinc 50 mg tab Take 50 mg by mouth once daily. zinc sulfate (ZINC-220 ORAL) Take by mouth. Current Facility-Administered Medications Medication Dose Route Frequency Provider Last Rate Last Admin cyanocobalamin 1,000 mcg injection 1,000 mcg INTRAMUSCULAR q 1 MONTH Eldon Gill DO 1,000 mcg at 06/01/23 3492 REVIEW OF SYSTEMS: GENERAL: Positive for:Weight gain HEENT: Positive for:Glasses NECK: Negative for: Swelling, Pain, Stiffness RESPIRATORY: Negative for: Cough, Blood in Sputum, Shortness of breath, Wheezing, Apnea GASTROINTESTINAL: Negative for: Trouble swallowing, Heartburn, Change in bowel habits, Blood in stool, Dark black stools MUSCULOSKELETAL: Positive for: Muscle or joint pain NEUROLOGIC/PSYCHIATRIC: Negative for: Weakness, Paralysis, Numbness, Tingling, Tremor, Nervousness or anxiety, Depressed mood, Memory loss SKIN: Negative for: Rash, Itching HEMATOLOGICAL/LYMPHATIC: Positive for: Easy bruising and Easy bleeding ENDOCRINE: Negative for: Heat or Cold Intolerance, Excessive Sweating, Frequent Urination, Frequent Thirst PHYSICAL EXAMINATION: BP 148/81 Pulse 103 Wt 102.1 kg (225 lb) SpO2 95% BMI 34.21 kg/m General: Normal exam, no distress, obese; uses a cane Skin: No clubbing, no cyanosis. Eyes: Extra ocular movements intact Neck: Neck veins are not distended Lungs: Chest clear to auscultation Heart: Rhythm: regular rate and rhythm, Rate: tachycardia, no murmur Abdomen: Normal, Obesity Extremities: Normal exam of the extremities; wraps to BL legs Peripheral Pulses: Normal CARDIOVASCULAR MEDICINE TESTING: Latest Reference Range & Units 03/29/23 14:29 Sodium 136 - 144 mmol/L 140 Potassium 3.7 - 5.1 mmol/L 4.3 Chloride 97 - 105 mmol/L 104 CO2 22 - 30 mmol/L 25 BUN 7 - 21 mg/dL 34 (H) Creatinine 0.58 - 0.96 mg/dL 1.01 (H) Glucose 74 - 99 mg/dL 197 (H) Calcium 8.5 - 10.2 mg/dL 9.4 Anion Gap 9 - 18 mmol/L 11 eGFR >=60 mL/min/1.73m 63 (H): Data is abnormally high Stress Test 04/2017: CONCLUSIONS: 1. SPECT Perfusion Study: Normal. 2. There is no scintigraphic evidence for inducible ischemia. 3. No evidence of scarred myocardium. 4. Left ventricle is normal in size. The left ventricle systolic function is normal. 5. This is a low risk scan. Gated Stress IR:3D LVEF % 67 Echocardiogram 02/2022: I have personally reviewed the Laboratory Testing and Echocardiogram. COUNSELING: We discussed the following non-pharmacological measures during this visit: Smoking and alcohol abstinence/cessation, if applicable Dietary and medication compliance Monitoring daily weights and blood pressures Exercise regimen When to call our office Heart Failure Education Booklet: Previously given. Discussed red flags and when to call MD/RN BABY or go to ED. Medications reconciled at end of visit: yes I spent 25 minutes in this visit, with more than 50% of the time devoted to patient counseling. SIGNATURE: Ayan Wallis APRN.CNP PATIENT NAME: Shade Brambila DATE: June 17, 2023 TIME: 999 documented in this encounter [facility] 05-10-2023 Miscellaneous Notes Please call patient. She has thickened endometrium with postmenopausal bleeding. She needs an EMBx. Please assist her with scheduling. Thank you, Violetta Jimenez PA-C May 10, 2023 9:11 PM documented in this encounter [facility] 05-06-2023 Miscellaneous Notes Patient called to report episode of dizziness and lightheadedness. She feels she is taking too much diuretic. Will have her take 20 mg lasix PRN. Provided BP parameters as well on when she should hold lasix dose. She is to continue spironolactone every other day. Reviewed plan of care with patient. All questions answered at this time. Ayan Wallis APRN.CNP documented in this encounter [facility] 05-04-2023 History of Presen t illness Narrative HPV TESTING Never done COLORECTAL CANCER SCREENING Never done PAP TESTING due on 01/01/2018 DILATED RETINAL EXAM due on 04/29/2023 Last 3 Encounter BP Readings: Date: BP: 04/06/2023 128/70 03/29/2023 144/60 03/24/2023 111/56 LDL Cholesterol Date Value 08/15/2022 117 mg/dL 09/19/2021 102 LDL (no units) Date Value 02/05/2020 106 HBA1C: Hemoglobin A1C (%) Date Value 02/05/2023 7.6 10/28/2022 7.7 07/15/2022 7.1 09/19/2021 10.3 02/04/2021 11.1 Hemoglobin A1c (%) Date Value 08/11/2013 7.0 05/03/2013 11.1 Hemoglobin A1C (POCT) (%) Date Value 03/23/2022 10.1 08/12/2020 10.6 02/05/2020 13.3 Albumin/Creat Ratio (MG/G) Date Value 08/13/2020 118.2 (A) Protein, Urine (no units) Date Value 03/22/2023 Negative 02/03/2021 Negative Albumin, Urine (mg/l) Date Value 08/13/2020 20.8 Health Maintenance Topics Topic Date Due DILATED RETINAL EXAM 04/29/2023 documented in this encounter [facility] 05-04-2023 Nurse Note Patient presents with: Nurse Visit: B12 and Zoster documented in this encounter [facility] 04-06-2023 Instructions Shanel Newell APRN.DEBORAH - 04/06/2023 3:39 PM EDT It was great to see you today, as we discussed: 1. Fasting labs at your earliest convenience to check cholesterol and liver function on increase Atorvastatin (Lipitor) dose. 2. Follow up with Dr. Sadler in 3 months, or sooner if need arises documented in this encounter [facility] 04-06-2023 History of Presen t illness Narrative Images from the original note were not included. [facility] [place] [facility] Department of Cardiovascular Medicine SECTION OF CLINICAL CARDIOLOGY OUTPATIENT VISIT DATE April 06, 2023 OUTPATIENT VISIT TYPE ESTABLISHED PRIMARY CARE PHYSICIAN: Eldon Gill [address] [place] [address] / [place] [address] CHIEF COMPLAINT: Follow up HISTORY OF PRESENT ILLNESS: Ms. Brambila is a 62 year old female with history of chronic HFpEF, HTN, HLD, peripheral vascular disease, NELLY, and diabetes mellitus type 2 who presents today for a cardiovascular medicine follow-up visit. She was last seen in the office by Dr. Sadler on 12/01/2022 at which time her most recent cholesterol profile was not under favorable control and her atorvastatin was increased to 80 mg daily with plan for follow-up in 6 months time. She subsequently has been following with the heart failure clinic with most recent visit 03/10/2023 following an ED visit for what was believed to be dehydration. At the time of her office visit she reported resolution in symptoms plan was for repeat BMP to assess need to adjust diuretic. She was again seen in the ED on 03/24/2023 with complaints of dizziness and low blood pressure. She was noted to have elevated kidney function with improvement in symptoms with IVF. She was checked in the CHF clinic at that time she was instructed to hold her spironolactone and Lasix for 2 days with decrease Lasix dosing thereafter. Today she reports since her most recent adjustment in diuretic regimen she has had no recurrence of lightheadedness or low blood pressures. She has been tolerating the increased atorvastatin dose without issue. She reports in January she was having some intermittent chest discomfort for which CHF clinic ordered nuclear stress testing which showed no inducible ischemia or scar. She has had no recent recurrence of chest pain. She is not monitoring her heart rate or blood pressure regularly at home as it has been under optimal control. She denies any palpitations, lightheadedness, dizziness, presyncope, syncope, lower extremity edema, orthopnea, or PND. Subjective PAST MEDICAL HISTORY Diagnosis Date Charcot left foot due to diabetes mellitus (HCC) 05/2013 subsequent to left foot fracture Depression Diabetes (HCC) Diabetic ulcer of posterior right heel (HCC) 02/06/2020 Foot fracture, left 05/2013 Charcot neuroarthropathy Menopause 46 yoa Obesity Renal disorder on vasotec to protect kidneys rt diabetes since 1998. Vitamin D deficiency 01/05/2017 PAST SURGICAL HISTORY Procedure Laterality Date AMPUTATION TOE,MT-P JT Right 07/2022 Hallux DILATION & CURETTAGE DX&/THER NONOBSTETRIC x3 EXTENSIVE HAND SURGERY Dupuytren contracture TONSILLECTOMY HX Social History Tobacco Use Smoking status: Never Smokeless tobacco: Never Vaping Use Vaping Use: Never used Substance Use Topics Alcohol use: Yes Comment: Occ Drug use: No FAMILY HISTORY Problem Relation Age of Onset Heart Father CHF Hypertension Father Hypertension Mother other (polycystic kidney disease) Mother Cancer Paternal Aunt breast CA Diabetes Brother other (CHF) Paternal Grandmother Coronary Artery Disease Brother MD and at age 45 ALLERGIES: ALLERGIES Allergen Reactions Amoxicillin Unknown Patient does not remember reaction Codeine Other: See Comments Patient states Makes her Hyper MEDICATIONS: metFORMIN (GLUCOPHAGE) 1,000 mg tablet^Take 1 tablet by mouth daily with lunch. E11.3599^Disp: ^Rfl: CPAP/BIPAP/OTHER^New set up: Settings 5 - 15 cm H2O, suitable mask per pt preference, chin strap, head gear, humidity, tubing, lifetime supplies. G47.33 NELLY ^Disp: 1 Each^Rfl: 0 Blood Pressure Monitor^Please monitor blood pressure 1-2 hours after taking morning medications.^Disp: 1 Kit^Rfl: 0 fluticasone (FLONASE) 50 mcg/actuation nasal spray^Use 2 Sprays in each nostril once daily. X 7 days then may use as needed for nasal congestion 1 spray each nostril as needed thereafter^Disp: ^Rfl: Zinc 50 mg tab^Take 50 mg by mouth once daily.^Disp: ^Rfl: atorvastatin (LIPITOR) 80 mg tablet^Take 1 tablet by mouth once daily.^Disp: 90 tablet^Rfl: 3 multivit,thx,calcium,iron,mins (MULTIVITAMIN AND MINERAL ORAL)^Take 1 tablet by mouth once daily.^Disp: ^Rfl: Ascorbic Acid 1,000 mg tablet^Take 1,000 mg by mouth once daily.^Disp: ^Rfl: insulin regular human, CONCENTRATED 500 UNIT/ML, (HUMULIN R) 500 unit/mL (3 mL) inpn^100 units sc at breakfast, 40 units at lunch, 80 units at supper.^Disp: 42 mL^Rfl: 3 (Patient taking differently: 40 units sc at breakfast, 100 units at lunch, 80 units at supper.) blood sugar diagnostic (ACCU-CHEK JOSE PLUS TEST STRP) test strip^USE TO TEST BLOOD GLUCOSE 3 TIMES DAILY.^Disp: 300 Strip^Rfl: 1 ibuprofen (ADVIL ORAL)^Take 3 tablets by mouth as needed.^Disp: ^Rfl: empagliflozin (JARDIANCE) 25 mg tablet^Take 1 tablet by mouth daily with breakfast.^Disp: 90 tablet^Rfl: 3 spironolactone (ALDACTONE) 25 mg tablet^Take 12.5 mg by mouth once daily. Take every other day^Disp: ^Rfl: FLUoxetine (PROZAC) 40 mg capsule^Take by mouth q 24 HR.^Disp: ^Rfl: lancets (ONE TOUCH DELICA) 33 gauge^USE TO BLOOD GLUCOSE 3 TIMES DAILY. INSULIN DEPENDENT E11.3299, E11.65, Z79.4^Disp: 300 Each^Rfl: 3 insulin needles, DISPOSABLE, (BD INSULIN PEN NEEDLE UF) 31 gauge x 5/16^FOUR DAILY FOR INSULIN INJECTIONS.^Disp: 400 Each^Rfl: 1 enalapril (VASOTEC) 10 mg tablet^Take 1 tablet by mouth once daily.^Disp: 90 tablet^Rfl: 3 Blood-Glucose Meter misc^Use to test blood glucose 3 times daily. Insulin Dependent E11.3299, E11.65, Z79.4^Disp: 1 Each^Rfl: 0 Cholecalciferol, Vitamin D3, 50 mcg (2,000 unit) cap^Take 1 tablet by mouth once daily. ^Disp: ^Rfl: furosemide (LASIX) 20 mg tablet^Take 2 tablets by mouth once daily.^Disp: ^Rfl: zinc sulfate (ZINC-220 ORAL)^Take by mouth.^Disp: ^Rfl: (Patient not taking: Reported on 04/06/2023) REVIEW OF SYSTEMS: CARD: See HPI GENERAL: Negative for: Weight loss or gain, Fever and/or Chills HEENT: Negative for: Headache, Impaired Vision, Hearing Impairment, Ringing in Ears, Nosebleeds, Bleeding Gums +Glasses NECK: Negative for: Swelling, Pain, Stiffness RESPIRATORY: Negative for: Cough, Blood in Sputum, Shortness of breath, Wheezing, Apnea GASTROINTESTINAL: Negative for: Nausea, Vomiting, Diarrhea, Blood in stool, or Dark black stools MUSCULOSKELETAL: +Arthralgias NEUROLOGIC: Negative for: focal numbness/weakness, headaches, visual changes, ataxia, speech/language loss SKIN: Negative for: Rashes, Itching HEMATOLOGICAL/LYMPHATIC: Negative for: Easy bruising , Easy bleeding ENDOCRINE: Negative for: Heat or cold intolerance, Excessive sweating, Frequent urination, Frequent thirst Objective PHYSICAL EXAMINATION: BP 128/70 Pulse 69 Ht 172.7 cm (5' 8) Wt 98.9 kg (218 lb) SpO2 99% BMI 33.15 kg/m General: Well appearing, in no acute distress. Skin: No clubbing, no cyanosis. Eyes: Extra ocular movements intact. Glasses Oropharynx: Teeth in good repair. Neck: No jugular venous distention, no carotid bruits, carotids have a normal upstroke. Lungs: Clear to auscultation bilaterally, no wheezing or rhonchi. Heart: Regular rhythm, S1, S2 normal, no S3, no S4, no heaves, no rub and no murmur. No peripheral edema . Grade 2/4 distal pulses bilaterally. Abdomen: Soft, nontender, bowel sounds normal, no bruits. Neuro: Oriented to person, place and time, alert, cooperative, gait coordinated. CARDIOVASCULAR MEDICINE TESTING: Last EKG Result Conclusion ECG COMPLETE Collected: 03/25/2023 1:13 AM (Final result) Impression: NORMAL SINUS RHYTHM LEFT AXIS DEVIATION MODERATE VOLTAGE CRITERIA FOR LVH, MAY BE NORMAL VARIANT ABNORMAL ECG 0113 Confirmed by NATHANAEL BRYANT MD ([id number]), news videotape editor MARY KATE CUELLO ([id number]) on 03/25/2023 1:17:18 PM Pharm [facility] Stress 01/05/2023: 1. SPECT Perfusion Study: Normal. 2. There is no scintigraphic evidence for inducible ischemia. 3. No evidence of scarred myocardium. 4. Left ventricle is normal in size. The left ventricle systolic function is normal. 5. This is a low risk scan. Gated Stress IR:3D LVEF % 70 There were no tests performed for review. PLAN AND RECOMMENDATIONS: 1. HFpEF - NYHA Functional Class II stage C Heart Failure - Echocardiogram 02/2022: EF 55 to 60% with mild concentric LVH and normal LVDD - NT proBNP 114 - GDMT: Aldactone 12.5 mg every other day, Jardiance 25 mg daily, and Lasix 20 mg daily - Patient appears euvolemic on exam. - Encouraged to monitor sodium and fluid intake as well as daily weights - Follows with CHF clinic - Recent issues with dehydration, improved with decreased Lasix to 20 mg daily an aldactone to 12.5 mg every other day 2. Essential hypertension - Optimal control on Aldactone, enalapril, and lasix - Encouraged dietary sodium restriction/DASH diet - Reviewed risks of HTN and principles of treatment - Goal of BP <130/80 3. Mixed hyperlipidemia - Currently on atorvastatin 80 mg (Increased 11/2022) - Last lipid panel 08/2022 with LDL 117 - Stable LFTs 09/2022 - FLP/LFT 4. Peripheral vascular disease - Noted venous insufficiency on ultrasound 12/22/2021 - Normal MANJEET on PVRs 12/22/21 - Follows with vascular surgery, Dr. Moore 5. Obstructive sleep apnea - PSG 05/29 with moderate NELLY likely underestimated due to low sleep efficiency and absence of REM - Follows with sleep medicine CONCLUSION: Patient presents today for follow-up an appears to be doing well from a cardiovascular standpoint without symptoms to suggest cardiac decompensation at this time. She has recently been having issues with episodes of dehydration for which she was seen multiple times in the ED. She followed closely with the CHF clinic in regards to this and has had no recurrence in symptoms with decrease in her Lasix and Aldactone dosing. Her most recent cholesterol profile was not under favorable control and her atorvastatin was increased to 80 mg daily in November for which she is due for repeat FLP/LFTs at this time. Her heart rate and blood pressure remain under favorable control. I have made no additions or changes to her medications. She should continue to actively engage in cardiovascular risk factor modification and follow up with Dr. Sadler in 3-4 months, or sooner should need arise. CONTACT INFORMATION: Shanel Newell APRN.DEBORAH Cardiology Nurse Practitioner Section of Regional Cardiology [facility] Dept of Cardiovascular Medicine [facility] [place] [address] [place] [address] Office Office This note was partially generated using eMazeMe voice recognition system and may contain errors related to that system including grammar, punctuation, spelling, and words that may be inappropriate documented in this encounter [facility] 03-25-2023 Miscellaneous Notes Patient called to report recent ER visit regarding dizziness. She was seen in ER on Wednesday. She was told she may have a virus and was sent home. Vitals were within normal limits. On Wednesday, she felt worse. Her friend is a nurse and came to her house to check her BP which was reported to be in the 70's systolic. She was seen in ER. She was given IV fluids. Kidney function was noted to be elevated. Instructed patient to hold spironolactone tomorrow and Wednesday. Resume this on Wednesday and continue every other day with this. She is to also hold her lasix until Wednesday. Starting Wednesday, she is to take 20 mg lasix (1/2 tablet). BMP on Wednesday. She will call office on Wednesday to check in. Reviewed plan of care. Patient read back instructions. Ayan Wallis APRN.DEBORAH documented in this encounter [facility] 03-23-2023 Miscellaneous Notes Received [employer] order CPAP supplies, fax to [phone] documented in this encounter [facility] 03-12-2023 History of Presen t illness Narrative Images from the original note were not included. Problem list reviewed. CHIEF COMPLAINT: check RT 2nd toe amputation site dehiscence wound and check right heel pain SP Amputation of RT second toe, ID 10/28/2022 DM II A1c 10.3 DLS 10/12/2022 HISTORY OF PRESENT ILLNESS: Here today for wound check RT second toe amputation dehiscence wound and RT lateral great toe wound. She finished clindamycin. Previously done snap vacs. Denies drainage. Is hopeful wound is healed. She went to ED 03/02 for dehydration and abnormal blood pressure. Relates she is doing much better. She continues HBO. She saw her area field manager who said she has some sleep apnea and said she was good to do HBO. Referred by Dr. Dasilva. 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 She finished 5 applications of aplifgraf. She has done HBO and snap vacs as well. Patient denies N/F/V/C/CP/SOB. PCN allergy HX partial amputation RT great toe 07/08/2022 and LEFT great toe wound. Right 2nd toe amputation and hallux I&D 10/28/22. rx circade wraps 08/14/22 CURRENT MEDICATIONS: Cephalexin Oral Tablet 500 MG(10/23/2022) Take 1 tablet three times a day for 7 day(s) Ciprofloxacin HCl Oral Tablet 500 MG(10/23/2022) Take 1 tablet twice a day for 7 day(s) diazePAM Oral Tablet 10 MG(02/19/2022) TAKE 1 TABLET 60 MIN BEFORE TEST Ofloxacin Ophthalmic Solution 0.3 %(02/09/2022) PUT 1 DROP IN LEFT EYE 4 TIMES A DAY FLUoxetine HCl Oral Capsule 40 MG(01/26/2022) Enalapril Maleate Oral Tablet 10 MG(01/26/2022) TAKE 1 TABLET BY MOUTH EVERY DAY Atorvastatin Calcium Oral Tablet 40 MG(04/16/2022) TAKE 1 TABLET BY MOUTH EVERYDAY AT BEDTIME Erythromycin Ophthalmic Ointment 5 MG/GM(02/09/2022) APPLY 1 A SMALL AMOUNT LEFT EYE 4 TIMES A DAY Atorvastatin Calcium Oral Tablet 20 MG(01/26/2022) TAKE 1 TABLET BY MOUTH EVERY DAY Jardiance Oral Tablet 25 MG(03/23/2022) Spironolactone Oral Tablet 25 MG(04/17/2022) Furosemide Oral Tablet 40 MG(03/05/2022) TAKE 1 TABLET BY MOUTH EVERY DAY HumuLIN R U-500 KwikPen Subcutaneous Solution Pen-injector 500 UNIT/ML(09/29/2021) INJECT 90 UNITS SUBCUTANEOUSLY AT BREAKFAST TIME, 40 UNTIS AT LUNCH, AND 90 UNITS AT SUPPER metFORMIN HCl Oral Tablet 1000 MG(04/22/2022) ALLERGIES: Band-Aid [place] Surg Dressing Other Bandaging Tape Other PAST MEDICAL HISTORY: Podiatry History remarkable for Foot Numbness, Fungal Nails, Leg or Foot Ulcers. The patient has a past medical history of Arthritis, Depression, DM-Medication Dependent, Poor Circulation. Neuropathy High Cholesterol SURGICAL HISTORY: Hand Tonsils HOSPITALIZATIONS: None Noted SOCIAL HISTORY: Smoking Status: Never smoker; Last Reviewed: 11/02/2022 Alcohol use: social drinker No drug use Social History Reviewed (01/16/2021 11:20:18 AM EST) FAMILY HISTORY: There is a family history of Denial of any knowledge of significant family history. Denial of any knowledge of significant family history Family History Reviewed (01/16/2021 11:20:19 AM EST) REVIEW OF SYSTEMS: Psychologic: Admits to No psych symptoms. Review of systems otherwise negative PHYSICAL EXAMINATION: Vital Signs: Weight 235 lbs; Height 5 ft 8 in; BMI 35.7 03/10/2023 1:14 PM (EST) Temperature 98.6 F; Pulse Rate 100 bpm; Blood Pressure 120 / 80 mm/Hg Vascular Exam: BL Foot DP / PT pulses +2/4 CFT less than 3 seconds to digits, skin temp warm to warm from proximal to distal BL Foot Dermatologic Exam: RIGHT 2nd amputation site wound predebridement covered by slough and post debridement measures 0.1x0.1x0.1cm with granular base, surrounding slough, no surrounding maceration, no erythema, no purulence, no probe to bone, no malodor, moderate serosanguinous drainage. Into level of SUBCUTANEOUS tissue. RIGHT lateral hallux wound and RIGHT 3rd toe tuft wound remains healed Nails 1-5 left and 3-5 RT Bilateral are thickened, elongated and discolored with subungual debris. The nails are greater than .3mm in thickness. The discoloration is yellowish in color. Innerspaces 1-4bl are clean dry and intact. Skin texture and turgor are decreased. absent or decreased hair growth bilateral. nail changes bilateral Neurologic Exam: Comments/Other Findings: Vibratory sensations decreased BL at the MPJ, Protective sensations absent BL tested with 5.07 monofilament, and light, sharp, and temperature sensations intact bl. Muscle Testing of the Extensors, Flexors, Evertors (peroneals), and Invertors (posterior tibialis) BL leg shows 5/5 testing noted. Normal Babinski test noted bl foot after testing Orthopedic Exam: Additional Orthopedic Findings: RT partial great toe and 2nd toe amp noted RIGHT heel no wounds, no pain to palpation, no ecchymosis, no edema DIAGNOSIS: Ulcer of right foot with fat layer exposed Right foot pain Pain of toe of right foot Type II diabetes mellitus with neurological manifestations Lymphedema of both lower extremities PVD (peripheral vascular disease) History of amputation of right great toe Amputated toe of right foot Skin ulcer of right foot including toes, limited to breakdown of skin PLAN AND TREATMENT: ASSESMENT & PLAN BL Foot and Ankle and Lower extremity Exam and Evaluation carried out with a treatment plan reviewed with the patient and findings discussed with patient including alternatives, benefits, complications and risks PREVIOUS TESTS / IMAGING / X-RAY EXAM 11/10/22 right foot XR: there is partial great toe noted with no sign of infection. second toe MPJ amp with met head resection noted. 12/22/21 PVR RESULTS: RIGHT SIDE Resting right ankle brachial index: 1.37Right toe brachial index: 0.70Normal ankle brachial index at rest in the right leg. Normal toe brachial index at rest in the right leg. Right ankle: Normal at rest. LEFT SIDE Resting left ankle brachial index: 1.33Left toe brachial index: 0.83Normal ankle brachial index at rest in the left leg. Normal toe brachial index at rest in the left leg. Left ankle: Normal at rest. 11/26/22 CULTURE: Streptococcus mitis-oralis, Staphylococcus epidermidis 11/23/22 left foot XR [facility]: Previous amputation of the second toe and the head of the second metatarsal. Remote healed fracture of the neck of the fifth metatarsal. Previous amputation of the distal phalanx of the great toe. Prominent plantar calcaneal spur. No definite bony destructive change is seen. No soft tissue gas or foreign body. RIGHT 2nd toe amp wound improved. RIGHT 2nd toe amputation site ulcer treated with Excisional debridement carried out of the wound with non selective sharp excisional debridement past the dermis into SUBQ level with use of curette and 15 scalpel bladed debriding non viable tissue out of wound. We then flushed out the wound with wound and put dressing on. Discussed importance in offloading, proper nutrition including blood sugar control and getting enough protein and vitamins, infection prevention, proper wound care in wound healing. Also discussed detrimental impact of smoking on healing. Reviewed proper wound care with patient. Dressing was applied today. To watch for signs of infection both local and systemic. These were reviewed with the patient. If seen to contact office or go to ED. To continue wound care consisting of washing the wound with soap and water or vashe solution. Then to apply dressing consisting of hydrogel, adaptic, gauze dressing Completed 5 aplifgraf applications She knows she is at risk for further amputation such as TMA and for admission to hospital with infection. she finished clindamycin cont HBO Follow up at [facility] for ulcer check 1 week for wound check Ulcer of right foot with fat layer exposed 707.15 L97.512 & Right foot pain 729.5 M79.671 & Pain of toe of right foot 729.5 M79.674 & Type II diabetes mellitus with neurological manifestations 250.60 E11.49 & Lymphedema of both lower extremities 457.1 I89.0 & PVD (peripheral vascular disease) 443.9 I73.9 & History of amputation of right great toe V49.71 Z89.411 & Amputated toe of right foot 895.0 S98.131A & Skin ulcer of right foot including toes, limited to breakdown of skin 707.15 L97.511 documented in this encounter [facility] 03-11-2023 Instructions Lauren Fabian RN - 03/11/2023 8:15 AM EDT WOUND CARE INSTRUCTIONS- Shade Brambila Wound location: Right 2nd toe amp site - Gather supplies - Place down a clean work surface such as new paper towel or newly cleaned towel. - Clean all metal instruments with rubbing alcohol before and after each use. - Plastic garbage bag for old dressing - Wash your hands with soap and water before and after wound care. - Moisten a clean 4x4 gauze with several drops of Vashe solution and apply to all wounds. Let soak for 5-10 minutes and pat dry with clean gauze. - Apply to wound bed: apply hydrogel followed by apply single layer of Adaptic over - Cover with folded 4x4 gauze & ABD pad. - Hold in place with Conform folded gauze & tape. - Apply compression single layer of tubi tobacco wetter. - Change your dressing every other day. Compression must be removed if: it becomes wet or soiled If you have numbness or tingling in your foot or toes If you have increased pain If toes become cold or discolored - Avoid sitting with legs in a dependent position or standing for long periods of time. - Attempt to lay flat and elevate your legs above the level of your heart 2-3 times daily, for 30 minutes at a time. - Be sure to continue walking and/or calf pumps and exercises to mimic writing the alphabet with your foot, as instructed - Control your sodium intake as instructed by provider To give your wound the best chance to heal: - Eat three balanced meals daily focusing on the protein - Control your blood sugar. Keep blood sugar less than 200 - Complete your wound care instructions as ordered - Vitamin C 500 mg twice daily - Multiple Vitamin Daily - Drink a protein shake daily - Premiere Clear or Glucerna for Diabetic patients, Nepro for renal patients and premiere for non-renal and non-diabetic patients Report any of the following signs and symptoms of infection to the Wound Center at [phone] or go to the Emergency Department: Fever or chills Increased drainage Green or yellow drainage Foul odor Increased pain Hardness around the wound Redness, warmth or swelling of the surrounding tissue Color change to the wound Evenings / Weekends / Holidays If you call the wound center at the phone number provided above, please leave a detailed message that includes your full name, birthday, and phone number. We are seeing patients during the day, so we will return your call within a 24-48 hr period in the order your call was received. There is not an on-call provider assigned to the wound center. If you have an emergency that needs to be addressed, please go to an Urgent Care or Emergency Room. Thank you for your cooperation and understanding. PLAN/ORDERS: Return to the wound center to see Dr. Hu Pickard in 1- 2 weeks Continue aggressive nutritional support to assist wound healing, focusing on increasing protein intake. Call [employer] for more supplies, can re-order every 30 days. Phone #: [phone] Continue with HOBT treatment. Hu Pickard DPM/rivka/martha documented in this encounter [facility] 03-11-2023 Nurse Note Nursing Documentation Pertinent Medical History: DM2, HTN, venous insufficiency, & heart failure Wound Etiology according to patient: Wounds spontaneously opened up over last 2 months Patient arrived via: Ambulatory with cane Home Care Company/Nursing Facility: N/A Consent captured for debridement per Dr Cici KENNEY and linda until May 2023 Consent captured for debridement per Dr. Neeraj KENNEY and linda until May 2023 Consent captured for debridement per Dr. Alfredo Moore DPM and linda until May 2023 Anticoagulant Therapy: N/A ACTIVE CARE PER PROVIDER: Giovanni Bolanos DPM, Hu HAM, & Alfredo Moore DPM WOUND # 1 -22 previously closed WOUND # 24, 25 previously closed WOUND # 27 LOCATION: Right dorsal Foot - intact bulla on arrival - new 11/26/22 Blister dry, intact closed skin 12/03/22, closed 12/07/22 WOUND # 26 - LOCATION: Right Great Toe - Hallux Lateral- (new 11/10/22) - closed 01/15/23, remains closed 01-28-2023 - Area of concern: New 01/21/23 Right Steiner (Blister)- Skin prep applied, covered with gauze, conform. Resolved 01-28-2023 Application Dates: Grafts are complete 01/07/2023 Apligraf 01/15/2023 Apligraf 01/21/2023 Apligraf 01/27/2023 Apligraf 02/04/2023 Apligraf WOUND ASSESSMENT: Refer to Provider's Wound Assessment Note VASCULAR ASSESSMENT BY PROVIDER: See provider wound assessment note CHF History: Yes as of February 2022, Dr. Sadler in Cardiology EDEMA: Right Foot: trace Right Calf: 2+ Left Calf: N/A Left Foot N/A Other: N/A MEASUREMENTS: in cm Right Calf: 34.3 Right Ankle: 22.2 Left Calf: N/A Left Ankle: N/A Length: 43.0 WOUND PHOTOGRAPHY: Yes x 1 DEBRIDEMENT PROCEDURE BY PROVIDER: Anesthetic Used: Insensate Other procedure: N/A Specimen collected: N/A WOUND TREATMENT PER MD ORDER: Wounds cleansed by mechanical debridement to allow provider to visualize wound base WOUND # 23 - LOCATION: Right 2nd Toe AMP Site L: 0.2 cm x W: 0.2 cm x D: 0.2 cm DEBRIDEMENT by provider: SQ Cleansed with: Vashe, & NS Applied to naya-wound skin: Skin prep Applied to wound bed: hydrogel, adaptic Covered and secured with: 2x2 border gauze Other: Vaseline to intact skin COMPRESSION: Single layer Tubi-Quality Assurance Tester size D to right lower leg, pt's own Circaid present on left lower leg SPECIAL NEEDS: Coordination of care - [place]leer with HBOT in to evaluate Emotional support N/A OR set-up N/A Yarn Examiner N/A Incontinence needs N/A DISCHARGED in stable condition to: Ambulatory to HBOT with cane PLAN/ORDERS: Return to the wound center to see Dr. Hu Pickard in 1- 2 weeks Continue aggressive nutritional support to assist wound healing, focusing on increasing protein intake. Call [employer] for more supplies, can re-order every 30 days. Phone #: [phone] Continue with HOBT treatment. EDUCATION: The patient/family was instructed how to cleanse the wound(s). Visual demonstration on how to apply the dressing with teach back method. Signs & symptoms of infection were reviewed: Increased redness, swelling, pain, green/yellow drainage, fever and/or chills would all need to be evaluated by a Physician. Patient received typed home-going wound care instructions and has expressed intent to comply. OTHER EDUCATION: Education performed regarding lymphedema/edema: Elevation of extremity above the heart for 30 minutes three times daily and as needed Exercise such as writing the ABC's with your toes in the air, walking and/or calf pumps Wearing compression as ordered by provider Diet controlling of sodium as instructed by provider Use of medication to help control edema. UNIVERSAL PROTOCOL / SAFETY CHECKLIST Procedure to be Performed: Sharp wound debridement of Right Foot Sign In: 827 A Moment of CARE was completed. Personnel directly involved with the procedure wore the appropriate PPE (Personal Protective Equipment). Patient/Surrogate Stated/Verified: PATIENT VERIFIED(optional for EMERGENT procedures): Patient name, Date of , Relevant allergies, and The intended procedure Time Out Communication: 827 Intended patient and procedure match the source documents. Consent documented and matches the intended procedure. Sign Out: 828 SIGN OUT (optional for EMERGENT procedures): All instruments, equipment, possible retained foreign bodies accounted for. Post-procedure follow-up management communicated and Plan of Care Visit completed when applicable. Lauren Fabian RN/martha Current HBOT Status: Active or Complete - see screening below WOUND CENTER HYPERBARIC OXYGEN THERAPY SCREENING 1. Is the patient diabetic? (If No, skip to question 5) Yes 2. Does the patient have a lower extremity wound? Yes 3. Is there exposed/involved tendon or bone? 4. Has the wound been present for 30 days? Yes If Yes to ALL questions above, consult the Hyperbaric Center 5. Has the patient been diagnosed with osteomyelitis? No 6. Has the patient had a previous skin graft or flap at the wound? No 7. Has the patient had or been offered vascular intervention/evaluation? No 8. Does the patient have a wound at an amputation site? Yes 9. Has the patient had radiation therapy at the site of the problem? No If Yes to ANY of questions 5-9, consult the Hyperbaric Center Active in HBO. Lauren Fabian RN/MARTHA documented in this encounter [facility] 03-10-2023 History of Presen t illness Narrative Called patient to review labs. Elevated K+. Will have her take spironolactone every other day. She is to hold spironolactone tomorrow and start again on Wednesday with every other day. BMP in 1 week from today. Ayan Wallis APRN.CNP documented in this encounter [facility] 03-10-2023 Instructions Ayan Wallis APRN.CNP - 03/10/2023 8:43 AM EDT Continue current medications as prescribed. BMP lab work today. 2. Weigh yourself daily. Call me if your weight increases by 3-4 pounds in a 1-4 day period of time. 3. Continue low salt (2000 mg per day) diet. 4. Be as active as you are able. If you get tired, just stop and rest for a while. 5. Come back and see me on June 17 at 1000. If you have any question or concern, you can call me at [phone]. My colleague is Li and can be reached at [phone]. I am out of the office 03/12-03/23. Again, 04/16-04/27. documented in this encounter [facility] 03-10-2023 History of Presen t illness Narrative Images from the original note were not included. [facility] [place] [facility] OUTPATIENT VISIT DATE March 10, 2023 OUTPATIENT VISIT TYPE ESTABLISHED PRIMARY CARE PHYSICIAN: Eldon Gill DO CHIEF COMPLAINT: Patient presents with: Breathing Problem Leg Edema HISTORY OF PRESENT ILLNESS: Shade Brambila is a 62 year old female who presents today for a follow-up visit in the Heart Failure Clinic. The patient was last seen in office 12/24. The following changes were made at that time: spironolactone 25 mg x 2 days. Patient has had 1 hospitalizations and/or emergency room encounters in the last 12 months. Most recent hospitalization was 10/28/2022 for amputation of right second toe. She was in the ED last week. She was in the wound center during event. She reports feeling dizzy and lightheaded along with feeling numbness in both of her upper arms. [place] very hot. Mentions having changes to her vision. Imaging was performed showing no acute changes. She received IV fluids and felt much better afterwards. Today, the patient reports feeling well. Denies chest pain, shortness of breath, dizziness, lightheadedness, leg swelling. She continues to go to hyperbaric every day. Watches her sodium intake and fluid intake. Does not weigh herself every day. She reports feeling much better since her ED visit. Denies further episodes of previously mentioned symptoms. Denies regular exercise routine due to wound on right foot. She did get a recumbent bike for [place] but has not been able to use due to her foot. IMPRESSION: NYHA Functional Class: II Stage: C heart failure Shade Brambila is a 61 year-old female who presents to the Heart Failure Clinic to establish care. She appears euvolemic on examination. Will have BMP drawn today to reassess kidney function. If still elevated, will adjust her lasix. No other changes made to medications. Continue to monitor sodium and fluid intake. Exercise as tolerated. Will see in 3 months or sooner if needed. PLAN AND RECOMMENDATIONS: 1. Chronic heart failure with preserved ejection fraction (HCC) - ICD9: 428.9, ICD10: I50.32 (primary diagnosis) - daily weights, call office if weight increases 3-4 lbs in a 1-4 day period -2 gm low sodium diet -activity as tolerated, rest breaks as needed -spironolactone to 12.5 mg once a day -continue lasix 40 mg once a day -25 mg jardiance once a day -BMP today -follow up in HF Clinic 06/17 or sooner if needed 2. Primary hypertension - ICD9: 401.9, ICD10: I10 -BP suboptimal during visit 134/59 mmHg -encourage DASH/low sodium diet -encourage exercise with rest breaks as needed -goal BP <130/80 mmHg -continue home BP monitoring 3. Mixed hyperlipidemia - ICD9: 272.2, ICD10: E78.2 -continue atorvastatin -last lipid panel 09/19/2021; LDL 102, HDL 65, total 184 PAST MEDICAL HISTORY Diagnosis Date Charcot left foot due to diabetes mellitus (HCC) 05/2013 subsequent to left foot fracture Depression Diabetes (HCC) 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 Vitamin D deficiency 01/05/2017 PAST SURGICAL HISTORY Procedure Laterality Date AMPUTATION TOE,MT-P JT Right 07/2022 Hallux DILATION & CURETTAGE DX&/THER NONOBSTETRIC x3 EXTENSIVE HAND SURGERY Dupuytren contracture TONSILLECTOMY HX Social History Tobacco Use Smoking status: Never Smokeless tobacco: Never Vaping Use Vaping Use: Never used Substance Use Topics Alcohol use: Yes Comment: Occ Drug use: No Family History Problem Relation Age of Onset Heart Father CHF Hypertension Father Hypertension Mother other (polycystic kidney disease) Mother Cancer Paternal Aunt breast CA Diabetes Brother other (CHF) Paternal Grandmother Coronary Artery Disease Brother MD and at age 45 ALLERGIES Allergen Reactions Amoxicillin Unknown Patient does not remember reaction Codeine Other: See Comments Patient states Makes her Hyper CURRENT MEDICATIONS: Current Outpatient Medications Medication Sig Dispense Refill CPAP/BIPAP/OTHER New set up: Settings 5 - 15 cm H2O, suitable mask per pt preference, chin strap, head gear, humidity, tubing, lifetime supplies. G47.33 NELLY 1 Each 0 Blood Pressure Monitor Please monitor blood pressure 1-2 hours after taking morning medications. 1 Kit 0 fluticasone (FLONASE) 50 mcg/actuation nasal spray Use 2 Sprays in each nostril once daily. X 7 days then may use as needed for nasal congestion 1 spray each nostril as needed thereafter Zinc 50 mg tab Take 50 mg by mouth once daily. atorvastatin (LIPITOR) 80 mg tablet Take 1 tablet by mouth once daily. 90 tablet 3 metFORMIN (GLUCOPHAGE) 1,000 mg tablet TAKE 1 TABLET BY MOUTH TWICE DAILY WITH MEALS. E11.3599 (Patient taking differently: Take 1,000 mg by mouth twice daily with meals. E11.3599 Patient states she only takes once per day) 180 tablet 3 multivit,thx,calcium,iron,mins (MULTIVITAMIN AND MINERAL ORAL) Take 1 tablet by mouth once daily. Ascorbic Acid 1,000 mg tablet Take 1,000 mg by mouth once daily. insulin regular human, CONCENTRATED 500 UNIT/ML, (HUMULIN R) 500 unit/mL (3 mL) inpn 100 units sc at breakfast, 40 units at lunch, 80 units at supper. (Patient taking differently: 40 units sc at breakfast, 100 units at lunch, 80 units at supper.) 42 mL 3 blood sugar diagnostic (ACCU-CHEK JOSE PLUS TEST STRP) test strip USE TO TEST BLOOD GLUCOSE 3 TIMES DAILY. 300 Strip 1 ibuprofen (ADVIL ORAL) Take 3 tablets by mouth as needed. empagliflozin (JARDIANCE) 25 mg tablet Take 1 tablet by mouth daily with breakfast. 90 tablet 3 spironolactone (ALDACTONE) 25 mg tablet Take 12.5 mg by mouth once daily. Take half tablet by mouth daily furosemide (LASIX ORAL) Take 40 mg by mouth once daily. FLUoxetine (PROZAC) 40 mg capsule Take by mouth q 24 HR. lancets (ONE TOUCH DELICA) 33 gauge USE TO BLOOD GLUCOSE 3 TIMES DAILY. INSULIN DEPENDENT E11.3299, E11.65, Z79.4 300 Each 3 insulin needles, DISPOSABLE, (BD INSULIN PEN NEEDLE UF) 31 gauge x 5/16 FOUR DAILY FOR INSULIN INJECTIONS. 400 Each 1 enalapril (VASOTEC) 10 mg tablet Take 1 tablet by mouth once daily. 90 tablet 3 Blood-Glucose Meter misc Use to test blood glucose 3 times daily. Insulin Dependent E11.3299, E11.65, Z79.4 1 Each 0 Cholecalciferol, Vitamin D3, 50 mcg (2,000 unit) cap Take 1 tablet by mouth once daily. Current Facility-Administered Medications Medication Dose Route Frequency Provider Last Rate Last Admin cyanocobalamin 1,000 mcg injection 1,000 mcg INTRAMUSCULAR q 1 MONTH Eldon Gill DO 1,000 mcg at 01/12/23 1349 REVIEW OF SYSTEMS: GENERAL: Negative for: Weight loss or gain, Fever or Chills, Weakness and Sleep difficulties. HEENT: Positive for:Glasses NECK: Negative for: Swelling, Pain, Stiffness RESPIRATORY: Negative for: Cough, Blood in Sputum, Shortness of breath, Wheezing, Apnea GASTROINTESTINAL: Negative for: Trouble swallowing, Heartburn, Change in bowel habits, Blood in stool, Dark black stools MUSCULOSKELETAL: Positive for: Muscle or joint pain NEUROLOGIC/PSYCHIATRIC: Negative for: Weakness, Paralysis, Numbness, Tingling, Tremor, Nervousness or anxiety, Depressed mood, Memory loss SKIN: Negative for: Rash, Itching HEMATOLOGICAL/LYMPHATIC: Positive for: Easy bruising and Easy bleeding ENDOCRINE: Negative for: Heat or Cold Intolerance, Excessive Sweating, Frequent Urination, Frequent Thirst PHYSICAL EXAMINATION: BP 145/68 Pulse 64 Wt 98.4 kg (217 lb) SpO2 97% BMI 33.00 kg/m General: Normal exam, no distress, overweight, uses cane Skin: No clubbing, no cyanosis. Eyes: Extra ocular movements intact Neck: Neck veins are not distended Lungs: Chest clear to auscultation Heart: Rhythm: regular rate and rhythm, Rate: normal, no murmur Abdomen: Normal, Bowel Sounds: Present Extremities: Normal exam of the extremities Peripheral Pulses: Normal CARDIOVASCULAR MEDICINE TESTING: LABS 03/02/2023: Latest Reference Range & Units 03/02/23 10:59 Sodium 136 - 144 mmol/L 140 Potassium 3.7 - 5.1 mmol/L 3.9 Chloride 97 - 105 mmol/L 102 CO2 22 - 30 mmol/L 24 BUN 7 - 21 mg/dL 59 (H) Creatinine 0.58 - 0.96 mg/dL 1.14 (H) Glucose 74 - 99 mg/dL 185 (H) Protein, Total 6.3 - 8.0 g/dL 7.5 Calcium 8.5 - 10.2 mg/dL 9.8 Magnesium 1.7 - 2.3 mg/dL 2.1 Albumin 3.9 - 4.9 g/dL 4.0 Bilirubin, Total 0.2 - 1.3 mg/dL 0.3 Alkaline Phosphatase 34 - 123 U/L 136 (H) ALT 7 - 38 U/L 15 AST 13 - 35 U/L 19 Anion Gap 9 - 18 mmol/L 14 NT Pro BNP <125 pg/mL 123 eGFR >=60 mL/min/1.73m 55 (L) (H): Data is abnormally high (L): Data is abnormally low Stress Test 04/2017: CONCLUSIONS: 1. SPECT Perfusion Study: Normal. 2. There is no scintigraphic evidence for inducible ischemia. 3. No evidence of scarred myocardium. 4. Left ventricle is normal in size. The left ventricle systolic function is normal. 5. This is a low risk scan. Gated Stress IR:3D LVEF % 67 Echocardiogram 02/2022: I have personally reviewed the Laboratory Testing and Echocardiogram. COUNSELING: We discussed the following non-pharmacological measures during this visit: Smoking and alcohol abstinence/cessation, if applicable Dietary and medication compliance Monitoring daily weights and blood pressures Exercise regimen When to call our office Heart Failure Education Booklet: Previously given. Discussed red flags and when to call MD/RN BABY or go to ED. Medications reconciled at end of visit: yes I spent 30 minutes in this visit, with more than 50% of the time devoted to patient counseling. SIGNATURE: Ayan Wallis APRN.CNP PATIENT NAME: Shade Brambila DATE: March 10, 2023 TIME: 8:20 AM documented in this encounter [facility] 02-26-2023 History of Presen t illness Narrative Images from the original note were not included. Company Logo Name: Shade Brambila : 1960 Age: 62 Date of Visit: 02/25/2023 Problem list reviewed. CHIEF COMPLAINT: check RT 2nd toe amputation site dehiscence wound and check right heel pain SP Amputation of RT second toe, ID 10/28/2022 DM II A1c 10.3 DLS 10/12/2022 HISTORY OF PRESENT ILLNESS: Here today for wound check RT second toe amputation dehiscence wound and RT lateral great toe wound. She finished clindamycin. Previously done snap vacs. She relates her heel pain is resolved. She continues HBO. She saw her area field manager who said she has some sleep apnea and said she was good to do HBO. She has to get a nuclear stress test soon. Referred by Dr. Dasilva. 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 She finished 5 applications of aplifgraf. She has done HBO and snap vacs as well. Patient denies N/F/V/C/CP/SOB. PCN allergy HX partial amputation RT great toe 07/08/2022 and LEFT great toe wound. Right 2nd toe amputation and hallux I&D 10/28/22. rx circade wraps 08/14/22 CURRENT MEDICATIONS: Cephalexin Oral Tablet 500 MG(10/23/2022) Take 1 tablet three times a day for 7 day(s) Ciprofloxacin HCl Oral Tablet 500 MG(10/23/2022) Take 1 tablet twice a day for 7 day(s) diazePAM Oral Tablet 10 MG(02/19/2022) TAKE 1 TABLET 60 MIN BEFORE TEST Ofloxacin Ophthalmic Solution 0.3 %(02/09/2022) PUT 1 DROP IN LEFT EYE 4 TIMES A DAY FLUoxetine HCl Oral Capsule 40 MG(01/26/2022) Enalapril Maleate Oral Tablet 10 MG(01/26/2022) TAKE 1 TABLET BY MOUTH EVERY DAY Atorvastatin Calcium Oral Tablet 40 MG(04/16/2022) TAKE 1 TABLET BY MOUTH EVERYDAY AT BEDTIME Erythromycin Ophthalmic Ointment 5 MG/GM(02/09/2022) APPLY 1 A SMALL AMOUNT LEFT EYE 4 TIMES A DAY Atorvastatin Calcium Oral Tablet 20 MG(01/26/2022) TAKE 1 TABLET BY MOUTH EVERY DAY Jardiance Oral Tablet 25 MG(03/23/2022) Spironolactone Oral Tablet 25 MG(04/17/2022) Furosemide Oral Tablet 40 MG(03/05/2022) TAKE 1 TABLET BY MOUTH EVERY DAY HumuLIN R U-500 KwikPen Subcutaneous Solution Pen-injector 500 UNIT/ML(09/29/2021) INJECT 90 UNITS SUBCUTANEOUSLY AT BREAKFAST TIME, 40 UNTIS AT LUNCH, AND 90 UNITS AT SUPPER metFORMIN HCl Oral Tablet 1000 MG(04/22/2022) ALLERGIES: Band-Aid [place] Surg Dressing Other Bandaging Tape Other PAST MEDICAL HISTORY: Podiatry History remarkable for Foot Numbness, Fungal Nails, Leg or Foot Ulcers. The patient has a past medical history of Arthritis, Depression, DM-Medication Dependent, Poor Circulation. Neuropathy High Cholesterol SURGICAL HISTORY: Hand Tonsils HOSPITALIZATIONS: None Noted SOCIAL HISTORY: Smoking Status: Never smoker; Last Reviewed: 11/02/2022 Alcohol use: social drinker No drug use Social History Reviewed (01/16/2021 11:20:18 AM EST) FAMILY HISTORY: There is a family history of Denial of any knowledge of significant family history. Denial of any knowledge of significant family history Family History Reviewed (01/16/2021 11:20:19 AM EST) REVIEW OF SYSTEMS: Psychologic: Admits to No psych symptoms. Review of systems otherwise negative PHYSICAL EXAMINATION: Vital Signs: Weight 235 lbs; Height 5 ft 8 in; BMI 35.7 02/22/2023 4:00 PM (EST) Temperature 98.6 F; Pulse Rate 100 bpm; Blood Pressure 120 / 80 mm/Hg Vascular Exam: BL Foot DP / PT pulses +2/4 CFT less than 3 seconds to digits, skin temp warm to warm from proximal to distal BL Foot Dermatologic Exam: RIGHT 2nd amputation site wound predebridement measures 0.1x0.1x0.1cm and post debridement measures 0.2x0.2x0.2cm with granular base, surrounding slough, no surrounding maceration, no erythema, no purulence, no probe to bone, no malodor, moderate serosanguinous drainage. Into level of SUBCUTANEOUS tissue. RIGHT lateral hallux wound healed RIGHT 3rd toe tuft wound remains healed Nails 1-5 left and 3-5 RT Bilateral are thickened, elongated and discolored with subungual debris. The nails are greater than .3mm in thickness. The discoloration is yellowish in color. Innerspaces 1-4bl are clean dry and intact. Skin texture and turgor are decreased. absent or decreased hair growth bilateral. nail changes bilateral Neurologic Exam: Comments/Other Findings: Vibratory sensations decreased BL at the MPJ, Protective sensations absent BL tested with 5.07 monofilament, and light, sharp, and temperature sensations intact bl. Muscle Testing of the Extensors, Flexors, Evertors (peroneals), and Invertors (posterior tibialis) BL leg shows 5/5 testing noted. Normal Babinski test noted bl foot after testing Orthopedic Exam: Additional Orthopedic Findings: RT partial great toe and 2nd toe amp noted RIGHT heel no wounds, no pain to palpation, no ecchymosis, no edema DIAGNOSIS: Ulcer of right foot with fat layer exposed Right foot pain Pain of toe of right foot Type II diabetes mellitus with neurological manifestations Lymphedema of both lower extremities PVD (peripheral vascular disease) History of amputation of right great toe Amputated toe of right foot Skin ulcer of right foot including toes, limited to breakdown of skin PLAN AND TREATMENT: ASSESMENT & PLAN BL Foot and Ankle and Lower extremity Exam and Evaluation carried out with a treatment plan reviewed with the patient and findings discussed with patient including alternatives, benefits, complications and risks PREVIOUS TESTS / IMAGING / X-RAY EXAM 11/10/22 right foot XR: there is partial great toe noted with no sign of infection. second toe MPJ amp with met head resection noted. 12/22/21 PVR RESULTS: RIGHT SIDE Resting right ankle brachial index: 1.37Right toe brachial index: 0.70Normal ankle brachial index at rest in the right leg. Normal toe brachial index at rest in the right leg. Right ankle: Normal at rest. LEFT SIDE Resting left ankle brachial index: 1.33Left toe brachial index: 0.83Normal ankle brachial index at rest in the left leg. Normal toe brachial index at rest in the left leg. Left ankle: Normal at rest. 11/26/22 CULTURE: Streptococcus mitis-oralis, Staphylococcus epidermidis 11/23/22 left foot XR [facility]: Previous amputation of the second toe and the head of the second metatarsal. Remote healed fracture of the neck of the fifth metatarsal. Previous amputation of the distal phalanx of the great toe. Prominent plantar calcaneal spur. No definite bony destructive change is seen. No soft tissue gas or foreign body. RIGHT 2nd toe amp wound improved. RIGHT 2nd toe amputation site ulcer treated with Excisional debridement carried out of the wound with non selective sharp excisional debridement past the dermis into SUBQ level with use of curette and 15 scalpel bladed debriding non viable tissue out of wound. We then flushed out the wound with wound and put dressing on. Discussed importance in offloading, proper nutrition including blood sugar control and getting enough protein and vitamins, infection prevention, proper wound care in wound healing. Also discussed detrimental impact of smoking on healing. Reviewed proper wound care with patient. Dressing was applied today. To watch for signs of infection both local and systemic. These were reviewed with the patient. If seen to contact office or go to ED. To continue wound care consisting of washing the wound with soap and water or vashe solution. Then to apply dressing consisting of triple helix powder, adaptic, gauze dressing Completed 5 aplifgraf applications She knows she is at risk for further amputation such as TMA and for admission to hospital with infection. she finished clindamycin cont HBO Follow up at [facility] for ulcer check 1 week for wound check Ulcer of right foot with fat layer exposed 707.15 L97.512 & Right foot pain 729.5 M79.671 & Pain of toe of right foot 729.5 M79.674 & Type II diabetes mellitus with neurological manifestations 250.60 E11.49 & Lymphedema of both lower extremities 457.1 I89.0 & PVD (peripheral vascular disease) 443.9 I73.9 & History of amputation of right great toe V49.71 Z89.411 & Amputated toe of right foot 895.0 S98.131A & Skin ulcer of right foot including toes, limited to breakdown of skin 707.15 L97.511 documented in this encounter [facility] 02-25-2023 Instructions Amena Leonard RN - 02/25/2023 8:30 AM EDT WOUND CARE INSTRUCTIONS- Shade Ward Kosta Wound location: Right 2nd toe amp site - Gather supplies - Place down a clean work surface such as new paper towel or newly cleaned towel. - Clean all metal instruments with rubbing alcohol before and after each use. - Plastic garbage bag for old dressing - Wash your hands with soap and water before and after wound care. - Moisten a clean 4x4 gauze with several drops of Vashe solution and apply to all wounds. Let soak for 5-10 minutes and pat dry with clean gauze. Make sure to remove old Triple Mulino powder from wound bed - Apply to wound bed: light dusting of Triple Mulino Powder moistened with saline and apply single layer of Adaptic over - Cover with folded 4x4 gauze & ABD pad. - Hold in place with Conform folded gauze & tape. - Apply compression single layer of tubi tobacco wetter. - Change your dressing every other day. Compression must be removed if: it becomes wet or soiled If you have numbness or tingling in your foot or toes If you have increased pain If toes become cold or discolored - Avoid sitting with legs in a dependent position or standing for long periods of time. - Attempt to lay flat and elevate your legs above the level of your heart 2-3 times daily, for 30 minutes at a time. - Be sure to continue walking and/or calf pumps and exercises to mimic writing the alphabet with your foot, as instructed - Control your sodium intake as instructed by provider To give your wound the best chance to heal: - Eat three balanced meals daily focusing on the protein - Control your blood sugar. Keep blood sugar less than 200 - Complete your wound care instructions as ordered - Vitamin C 500 mg twice daily - Multiple Vitamin Daily - Drink a protein shake daily - Premiere Clear or Glucerna for Diabetic patients, Nepro for renal patients and premiere for non-renal and non-diabetic patients Report any of the following signs and symptoms of infection to the Wound Center at [phone] or go to the Emergency Department: Fever or chills Increased drainage Green or yellow drainage Foul odor Increased pain Hardness around the wound Redness, warmth or swelling of the surrounding tissue Color change to the wound Evenings / Weekends / Holidays If you call the wound center at the phone number provided above, please leave a detailed message that includes your full name, birthday, and phone number. We are seeing patients during the day, so we will return your call within a 24-48 hr period in the order your call was received. There is not an on-call provider assigned to the wound center. If you have an emergency that needs to be addressed, please go to an Urgent Care or Emergency Room. Thank you for your cooperation and understanding. PLAN/ORDERS: Return to the wound center to see Dr. Hu Pickard in 2 weeks March 11 at 830a Continue aggressive nutritional support to assist wound healing, focusing on increasing protein intake. Call [facility] for more supplies, can re-order every 30 days. Phone #: [phone] Continue with HOBT treatment. Hu Pickard DPM/martha/arnold documented in this encounter [facility] 02-25-2023 Nurse Note Nursing Documentation Pertinent Medical History: DM2, HTN, venous insufficiency, & heart failure Wound Etiology according to patient: Wounds spontaneously opened up over last 2 months Patient arrived via: Ambulatory with ADTZ Care AQS/Nursing Facility: N/A Consent captured for debridement per Dr Cici Cooper until May 2023 Consent captured for debridement per Dr. Neeraj Cooper until May 2023 Consent captured for debridement per Allison Hernandez until May 2023 Anticoagulant Therapy: N/A ACTIVE CARE PER PROVIDER: Giovanni Bolanos DPM, Hu Pickard DPM, & Alfredo Moore DPM WOUND # 1 -22 previously closed WOUND # 24, 25 previously closed WOUND # 27 LOCATION: Right dorsal Foot - intact bulla on arrival - new 11/26/22 Blister dry, intact closed skin 12/03/22, closed 12/07/22 WOUND # 26 - LOCATION: Right Great Toe - Hallux Lateral- (new 11/10/22) - closed 01/15/23, remains closed 01-28-2023 - Area of concern: New 01/21/23 Right Steiner (Blister)- Skin prep applied, covered with gauze, conform. Resolved 01-28-2023 Application Dates: Grafts are complete 01/07/2023 Apligraf 01/15/2023 Apligraf 01/21/2023 Apligraf 01/27/2023 Apligraf 02/04/2023 Apligraf WOUND ASSESSMENT: Refer to Provider's Wound Assessment Note VASCULAR ASSESSMENT BY PROVIDER: See provider wound assessment note CHF History: Yes as of February 2022, Dr. Sadler in Cardiology EDEMA: Right Foot: trace Right Calf: 2+ Left Calf: N/A Left Foot N/A Other: N/A MEASUREMENTS: in cm Right Calf: 33.5 Right Ankle: 22 Left Calf: N/A Left Ankle: N/A Length: 43.0 WOUND PHOTOGRAPHY: Yes x 1 DEBRIDEMENT PROCEDURE BY PROVIDER: Anesthetic Used: Insensate Other procedure: N/A Specimen collected: N/A WOUND TREATMENT PER MD ORDER: Wounds cleansed by mechanical debridement to allow provider to visualize wound base WOUND # 23 - LOCATION: Right 2nd Toe AMP Site L: 0.2 cm x W: 0.2 cm x D: 0.2 cm DEBRIDEMENT by provider: SQ Cleansed with: Vashe, & NS Applied to naya-wound skin: Skin prep Applied to wound bed: Triple Mulino powder adaptic touch steri-strips, Covered and secured with: Folded 4x4, 1/2 ABD, conform, & tape. Other: Vaseline to intact skin COMPRESSION: Single layer Tubi-Quality Assurance Tester size D to right lower leg, pt's own Circaid present on left lower leg SPECIAL NEEDS: Coordination of care - Stephenie with HBOT in to evaluate Emotional support N/A OR set-up N/A Yarn Examiner N/A Incontinence needs N/A DISCHARGED in stable condition to: Ambulatory to HBOT with cane PLAN/ORDERS: Return to the wound center to see Dr. Hu Pickard in 2 weeks March 11 at 830a Continue aggressive nutritional support to assist wound healing, focusing on increasing protein intake. Call [employer] for more supplies, can re-order every 30 days. Phone #: [phone] Continue with HOBT treatment. EDUCATION: The patient/family was instructed how to cleanse the wound(s). Visual demonstration on how to apply the dressing with teach back method. Signs & symptoms of infection were reviewed: Increased redness, swelling, pain, green/yellow drainage, fever and/or chills would all need to be evaluated by a Physician. Patient received typed home-going wound care instructions and has expressed intent to comply. OTHER EDUCATION: Education performed regarding lymphedema/edema: Elevation of extremity above the heart for 30 minutes three times daily and as needed Exercise such as writing the ABC's with your toes in the air, walking and/or calf pumps Wearing compression as ordered by provider Diet controlling of sodium as instructed by provider Use of medication to help control edema. UNIVERSAL PROTOCOL / SAFETY CHECKLIST Procedure to be Performed: Sharp wound debridement of Right Foot Sign In: 0848 A Moment of CARE was completed. Personnel directly involved with the procedure wore the appropriate PPE (Personal Protective Equipment). Patient/Surrogate Stated/Verified: PATIENT VERIFIED(optional for EMERGENT procedures): Patient name, Date of , Relevant allergies, and The intended procedure Time Out Communication: 0849 Intended patient and procedure match the source documents. Consent documented and matches the intended procedure. Sign Out: 0853 SIGN OUT (optional for EMERGENT procedures): All instruments, equipment, possible retained foreign bodies accounted for. Post-procedure follow-up management communicated and Plan of Care Visit completed when applicable. Amena Leonard RN/nc Current HBOT Status: Active or Complete - see screening below WOUND CENTER HYPERBARIC OXYGEN THERAPY SCREENING 1. Is the patient diabetic? (If No, skip to question 5) Yes 2. Does the patient have a lower extremity wound? Yes 3. Is there exposed/involved tendon or bone? 4. Has the wound been present for 30 days? Yes If Yes to ALL questions above, consult the Hyperbaric Center 5. Has the patient been diagnosed with osteomyelitis? No 6. Has the patient had a previous skin graft or flap at the wound? No 7. Has the patient had or been offered vascular intervention/evaluation? No 8. Does the patient have a wound at an amputation site? Yes 9. Has the patient had radiation therapy at the site of the problem? No If Yes to ANY of questions 5-9, consult the Hyperbaric Center Active in HBO. documented in this encounter [facility] 02-17-2023 Miscellaneous Notes Office visit on 02-08-23 with Rodo Medrano APRN.[facility] INSURANCE REQUIREMENTS: - Your insurance requires a ljuo-ro-fgup follow up visit within a 31-90 day period after starting CPAP. Call to patient. Patient states she received her CPAP and she will be starting her CPAP machine tonight. Her follow up appointment is currently scheduled for 06-14-23 and is also on the wait list. No sooner appointment is available. Forwarding to Rodo for review. Patient called in today request a sooner appointment- she received her cpap machine and was told to follow up in three months due to insurance however her appointment is schedule for June 14 which would be four months she is worried that it will be long for insurance and they wont cover the machine. Please advise if this ok- she is placed on the wait list. Patient stated a [employer] message is fine to send with information as well. Thank you! Nu Rashid documented in this encounter [facility] 02-08-2023 Miscellaneous Notes Answer Assessment - Initial Assessment Questions Pt seen in office today Protocols used: Information Only Call - No [id number] Shade Brambila is calling Eldon Gill DO today with concern regarding Bleeding. Patient was calling to requesting a urine test. Symptoms are blood on underwear. No urinary symptoms. She is unsure where the blood is coming from. She has an appointment at the hyperbaric wound clinic today until 12:30p and then has a sleep study appointment at 2:45p. She does not have a cell phone. She is asking if she can be contacted at the wound center, it a nurse needs to speak with her. She is on Dr. Gill's schedule for 4:20p today, to insure patient will have issue addressed. Patient has been identified by name and birthdate. Duration of symptoms: 3 days Person calling: self Call patient at: at home [phone] (home) [phone] (work) Was an appointment scheduled: Yes: Date/Time: 02-08-23 4:20p Closing statement: Jeanie Alegre Pss documented in this encounter [facility] 02-08-2023 Instructions Rodo Medrano APRN.HEEL CURVER - 02/08/2023 3:38 PM EDT PLAN: - Will start Auto CPAP 5-15 cmH2O with a Nasal pillows mask. - I will have a prescription sent to a [employer] equipment) company - [employer] who will be calling you in the next 1-2 weeks or so. Please call them directly or us if you do not hear from them in this time frame. - You should be eligible for new supplies approximately every 3-6 months, depending on your insurance coverage. - If your mask doesn't fit well, call the [employer] company before 30 days are up to get a new mask without an additional charge. - Insurance requires regular usage and periodic office follow ups for PAP therapy, to continue to cover supplies. INSURANCE REQUIREMENTS: - Your insurance requires a wssn-eh-eral follow up visit within a 31-90 day period after starting CPAP. - Your insurance requires compliance with CPAP, which is at least 4 hours per night for 70% of the time. This must be done over a 30 day period and must occur within the initial 31-90 day period after starting CPAP. - Your insurance also requires at least yearly follow ups to continue to pay for CPAP supplies. - Any appointments can be scheduled through the central scheduling system for the [facility] at [phone]. - If you are a [facility] patient, call [phone] for questions - Any other locations you have seen me at, please call [phone] opt [phone] for questions. - May use Message My Doc through My Chart for questions. - [facility] website: [email or web address] Continuous Positive Airway Pressure/Bilevel Therapy You have been prescribed Positive Airway Pressure (PAP) therapy to treat sleep apnea. The most common type of sleep apnea is obstructive sleep apnea (NELLY), a condition in which the upper airway collapses during sleep. This obstruction keeps air from getting into your lungs. The prescribed PAP machine (CPAP or Bilevel or ASV) will smoothly blow air into your airway to prevent it from closing. The machine will use a mask to deliver the air through your nose and/or mouth. These devices are available in various sizes and styles. It will take some time for you to get used to the new equipment and it may take a while for you to begin to feel the benefits of PAP therapy. Please be patient. If you are having problems adjusting to your machine, please contact us for help. Beginning your PAP Therapy Assembly: Place your PAP machine on a level surface near your bed. To prevent injury, do not place the machine higher than your head. Keep the machine at least 12 inches away from anything that may block the vents. Plug the machine into a properly grounded electrical outlet. It is better to avoid using an extension cord. If necessary, use a heavy-duty one. If you are NOT using a humidifier with you PAP equipment: Attach one end of your 6-foot tubing to the PAP unit outlet and the other end to your mask. (If your mask does not have a built-in exhalation port, a special exhalation valve should be used between the mask and the 6-foot tubing.) Attach the headgear to your mask. If you are using a humidifier with your PAP equipment: Fill the humidifier with DISTILLED water to the maximum fill line. Attach the humidifier to the PAP unit's outlet as instructed by the respiratory therapist with your home care company. Attach one end of your 6-foot tubing to the humidifier outlet and the other end to your mask. (If your mask does not have a built-in exhalation port, a special exhalation valve should be used between the mask and the 6-foot tubing.) If you have been prescribed oxygen to be used with the PAP machine, you will be instructed on how to attach your oxygen tubing. Always turn off the oxygen tank before turning off your PAP machine. Getting Started: Wash your face and apply the mask and headgear as instructed by the rad technologist or respiratory therapist. The mask should fit snugly to prevent air leaks, but not so tight as to cause skin irritation or discomfort. Turn the PAP power switch to the ON position. You should feel air blowing through the mask. Breathe normally and adjust the mask gently if you feel an air leak. If there are no leaks, activate the ramp feature on your PAP machine. The ramp allows a lower pressure to be delivered for a designated period of time (usually 5 to 45 minutes) to allow you to relax and fall asleep more easily. The pressure will then gradually increase to the prescribed pressure that controls your apnea. Remember to turn OFF your PAP unit when it is not in use. Care and Maintenance: Headgear should be washed as needed. Daily inspection and weekly washings are recommended. Do not disassemble the straps. Machine wash in warm water, making sure to attach Velcro hooks and tabs before washing. Line dry or machine dry on a low setting. Masks should be washed every other day. Daily inspection is recommended. Leave the mask and tubing attached. Gently wash the mask with a soft cloth using warm water and mild detergent, concentrating on the mask cushion flaps. DO NOT use alcohol or bleach. Rinse thoroughly and air dry. Tubing should be washed every other day. Daily inspection is recommended. Wash in warm water and mild detergent and rinse thoroughly. Hook the tubing to the machine and blow until dry. Humidifier should be washed daily and filled with DISTILLED water before use. Wash with warm water and mild detergent. Disinfect weekly by soaking with a solution of 1 part white vinegar and 3 parts water for 30 minutes. Rinse thoroughly and air dry. Disposable filters should be replaced once a month. Wash reusable foam filters with warm water and mild detergent at least once a month. Rinse thoroughly and dry with paper towels. Avoid appeals coordinator that contain fragrance or conditioners, as these will leave a residue. NEVER iron any soft goods. Troubleshooting: If the machine fails to turn on: Make sure that the PAP machine is plugged into a grounded outlet. Make sure that the ON/OFF switch is in the ON position. Make sure that the wall outlet has power. If there is no pressure coming from your machine: Make sure that the inlet filter is clean and unblocked. Make sure that the cooling fan is unblocked and that air is flowing freely. Make sure that all tubing is securely connected. If your PAP machine still fails to operate, please call your home care company for assistance. What You Should Know About Insurance There are many different insurance policies and coverage for PAP equipment will vary. Find out what your coverage provides and what your responsibilities are as a consumer. PAP therapy equipment is considered Durable Medical Equipment (DME). Here are a few questions to ask your insurance provider. What benefits do I have for DME? Do I have a deductible and/or co pay for DME? Is there a repair or replacement plan for durable medical equipment? How often can I receive a replacement mask, tubing, headgear and filters? Do I have to demonstrate that I am using my PAP device? How do I do that? Important Information : It is very important to keep your PAP equipment and supplies clean. The life of the supplies depends on the care they receive. Under normal circumstances, expect the mask and headgear to last 9-12 months. Refer to the otr owner operator's manual for more information. Important Safety Reminders: Keep equipment free from obstruction. Use your PAP equipment as directed. DO NOT try to adjust your pressure setting. DO NOT block the exhalation port or valve. Keep filters clean to prevent overheating. If a humidifier is being used, place it at a level lower than your head. If using a heated humidifier, allow unit to cool before cleaning or refilling. Follow safety guidelines regarding oxygen equipment. DO NOT operate multiple electrical devices from one outlet. If you have a medical emergency, contact the Emergency Medical Services. Below are the links to follow to watch a PAP education video: https://www.youtube.com/watch?v= [email or web address] Below are other education links: [facility] Information - Sleep Disorders Center: [email or web address] documented in this encounter [facility] 02-08-2023 History of Presen t illness Narrative Images from the original note were not included. [facility] New Patient Evaluation PATIENT NAME: Shade Brambila DATE OF SERVICE: February 08, 2023 CONSULTING PROVIDER: Shanel Newell [address] [place] [id number] REASON FOR CONSULT: Shanel Newell sends the patient for an opinion about NELLY. My findings and recommendations will be transmitted electronically via shared medical record to the consulting provider. HPI: Shade Brambila is a 62 year old female with a past medical history of Anxiety, Depression, Diabetes, Hyperlipidemia, & Obesity who presents to establish care in sleep medicine for NELLY diagnosis made by PSG. She does endorse EDS, fatigue, tiredness, & unrestful sleep. SLEEP APNEA Sleep apnea type : NELLY, Most Recent Apnea-Hypopnea Index (AHI): 20 Treatment : None DME: Will set up with [facility] PAP History: None SLEEP-WAKE SCHEDULE Bedtime: 12 AM. She does not have a hard time falling asleep. Latency: 30 minutes Wake time: 530-715 AM, with an alarm. (Depends on her appointments) Nocturnal wakings: every 2 hours On weekends, she tends to sleeps until up to 830 AM. Average total sleep time (in a 24 hour period): 4- 6 hours. She does take naps. Frequency: once a day if that Preferred sleep position: side Breathing disturbances and other behaviors during sleep: unknown . WAKE-RELATED DETAILS She works but is not a shift worker. She does not have difficulty with memory or concentration. (Light forgetfulness) She does not drive. She does drink 6 caffeinated beverages per day. There has not been a recent change in weight. Excessive Daytime sleepiness/fatigue has been a problem for a long time. There is no history of a viral illness or significant head injury prior to the start of daytime sleepiness. SLEEP DISORDER SYMPTOMS She reports having an urge to move the legs. The urge to move the legs is worse in the evening or nighttime than during the daytime. The urge to move the legs begins or worsens during periods of rest or inactivity (e.g. lying or sitting). The urge to move the legs is partially or totally relieved by movements such as walking or stretching, at least as long as the activity continues. There is history of iron deficiency or anemia. She has not been told that she has leg kicking during sleep (Does not have a bed partner). She denies any history of parasomnias. SLEEP FUNCTIONAL OUTCOME MEASURES Not completed PAST TREATMENTS: None PRIOR SLEEP STUDIES: On file, reviewed with patient PAST MEDICAL HISTORY Diagnosis Date Charcot left foot due to diabetes mellitus (HCC) 05/2013 subsequent to left foot fracture Depression Diabetes (HCC) 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, With Long-Term Current Use of Insulin (Hcc) Mixed Hyperlipidemia Hypertension Depression Vitamin D Deficiency Pain in Right Knee Albuminuria Peripheral Artery Disease (Hcc) Venous Insufficiency Multiple Open Wounds of Left Lower Extremity Multiple Open Wounds of Right Lower Extremity Venous Stasis Ulcers of Both Lower Extremities (Hcc) Chronic Heart Failure With Preserved Ejection Fraction (Hcc) B12 Deficiency Obesity, Class I, Bmi 30-34.9 Allergies As of Date: 02/08/2023 Allergen Noted Reaction AMOXICILLIN 11/26/2022 Unknown CODEINE 09/26/2022 Other: See Comments Fully Assessed 02/08/2023 CURRENT MEDICATIONS: nitrofurantoin monohydrate and macrocrystal (MACROBID) 100 mg capsule^Take 1 capsule by mouth twice daily for 7 days.^Disp: 14 capsule^Rfl: 0 Blood Pressure Monitor^Please monitor blood pressure 1-2 hours after taking morning medications.^Disp: 1 Kit^Rfl: 0 fluticasone (FLONASE) 50 mcg/actuation nasal spray^Use 2 Sprays in each nostril once daily. X 7 days then may use as needed for nasal congestion 1 spray each nostril as needed thereafter^Disp: ^Rfl: Zinc 50 mg tab^Take 50 mg by mouth once daily.^Disp: ^Rfl: atorvastatin (LIPITOR) 80 mg tablet^Take 1 tablet by mouth once daily.^Disp: 90 tablet^Rfl: 3 metFORMIN (GLUCOPHAGE) 1,000 mg tablet^TAKE 1 TABLET BY MOUTH TWICE DAILY WITH MEALS. E11.3599^Disp: 180 tablet^Rfl: 3 (Patient taking differently: Take 1,000 mg by mouth twice daily with meals. E11.3599 Patient states she only takes once per day) multivit,thx,calcium,iron,mins (MULTIVITAMIN AND MINERAL ORAL)^Take 1 tablet by mouth once daily.^Disp: ^Rfl: Ascorbic Acid 1,000 mg tablet^Take 1,000 mg by mouth once daily.^Disp: ^Rfl: insulin regular human, CONCENTRATED 500 UNIT/ML, (HUMULIN R) 500 unit/mL (3 mL) inpn^100 units sc at breakfast, 40 units at lunch, 80 units at supper.^Disp: 42 mL^Rfl: 3 (Patient taking differently: 40 units sc at breakfast, 100 units at lunch, 80 units at supper.) blood sugar diagnostic (ACCU-CHEK JOSE PLUS TEST STRP) test strip^USE TO TEST BLOOD GLUCOSE 3 TIMES DAILY.^Disp: 300 Strip^Rfl: 1 ibuprofen (ADVIL ORAL)^Take 3 tablets by mouth as needed.^Disp: ^Rfl: empagliflozin (JARDIANCE) 25 mg tablet^Take 1 tablet by mouth daily with breakfast.^Disp: 90 tablet^Rfl: 3 spironolactone (ALDACTONE) 25 mg tablet^Take 12.5 mg by mouth once daily. Take half tablet by mouth daily ^Disp: ^Rfl: furosemide (LASIX ORAL)^Take 40 mg by mouth once daily. ^Disp: ^Rfl: FLUoxetine (PROZAC) 40 mg capsule^Take by mouth q 24 HR.^Disp: ^Rfl: lancets (ONE TOUCH DELICA) 33 gauge^USE TO BLOOD GLUCOSE 3 TIMES DAILY. INSULIN DEPENDENT E11.3299, E11.65, Z79.4^Disp: 300 Each^Rfl: 3 insulin needles, DISPOSABLE, (BD INSULIN PEN NEEDLE UF) 31 gauge x 5/16^FOUR DAILY FOR INSULIN INJECTIONS.^Disp: 400 Each^Rfl: 1 enalapril (VASOTEC) 10 mg tablet^Take 1 tablet by mouth once daily.^Disp: 90 tablet^Rfl: 3 Blood-Glucose Meter misc^Use to test blood glucose 3 times daily. Insulin Dependent E11.3299, E11.65, Z79.4^Disp: 1 Each^Rfl: 0 Cholecalciferol, Vitamin D3, 50 mcg (2,000 unit) cap^Take 1 tablet by mouth once daily. ^Disp: ^Rfl: REVIEW OF SYSTEMS SLEEP RELATED ROS GENERAL: See HPI RESPIRATORY: negative dyspnea CARDIOVASCULAR: negative chest pain MUSCULOSKELETAL: positive pain related to surgery/procedure SKIN: positive right lower leg wound PSYCH: negative depression and suicidal thoughts ENDOCRINE: negative thyroid problems NEURO: negative cognitive changes All other systems reviewed and are negative. SOCIAL HISTORY Social History Tobacco Use Smoking status: Never Smokeless tobacco: Never Vaping Use Vaping Use: Never used Substance Use Topics Alcohol use: Yes Comment: Occ Drug use: No FAMILY HISTORY FAMILY HISTORY Problem Relation Age of Onset Heart Father CHF Hypertension Father Hypertension Mother other (polycystic kidney disease) Mother Cancer Paternal Aunt breast CA Diabetes Brother other (CHF) Paternal Grandmother Coronary Artery Disease Brother MD and at age 45 PHYSICAL EXAMINATION: Vital Signs: BP 144/72 (BP Site: Left Arm, BP Position: Sitting, BP Cuff Size: Regular Adult) Pulse 107 Wt 97.1 kg (214 lb) SpO2 99% BMI 32.55 kg/m PHYSICAL EXAM: General appearance: NAD, attire appropriate per season Mental status: A & O X3 Speech: Clear & coherent Constitutional: Overweight Musculoskeletal/ Extremities: Bandage in place on right LE, brace in place LLE Neuro: Gait slow and stable with use of cane, hearing intact to conversation IMPRESSION/PLAN: G47.33 NELLY (obstructive sleep apnea) (primary encounter diagnosis) I50.32 Chronic heart failure with preserved ejection fraction (HCC) G25.81 RLS (restless legs syndrome) E61.1 Iron deficiency E55.9 Vitamin D deficiency Shade Brambila is a 62 year old female with a past medical history of Anxiety, Depression, Diabetes, Hyperlipidemia, & Obesity who presents to establish care in sleep medicine for NELLY diagnosis made by PSG. She does endorse EDS, fatigue, tiredness, & unrestful sleep. Discussed with patient: the physiology of OSAS, medical conditions associated with OSAS (DM, HTN, CAD, Depression, Stroke, Headache...) and treatment options (UPPP, Dental appliances, CPAP...). As for RLS, most likely would related, will treat underlying OSAs, and obtain additional lab values. - Will start Auto CPAP 5-15 cmH2O with a Nasal pillows mask. - I will have a prescription sent to a [employer] company - [employer] who will be calling you in the next 1-2 weeks or so. Please call them directly or us if you do not hear from them in this time frame. - You should be eligible for new supplies approximately every 3-6 months, depending on your insurance coverage. - If your mask doesn't fit well, call the [employer] company before 30 days are up to get a new mask without an additional charge. - Insurance requires regular usage and periodic office follow ups for PAP therapy, to continue to cover supplies. INSURANCE REQUIREMENTS: - Your insurance requires a [id number] follow up visit within a 31-90 day period after starting CPAP. - Your insurance requires compliance with CPAP, which is at least 4 hours per night for 70% of the time. This must be done over a 30 day period and must occur within the initial 31-90 day period after starting CPAP. - Your insurance also requires at least yearly follow ups to continue to pay for CPAP supplies. Follow up in 4 month(s). Rodo Medrano APRN.DEBORAH I spent a total of 45 minutes on the date of the service which included preparing to see the patient, [id number] patient care, completing clinical documentation, obtaining and/or reviewing separately obtained history, performing a medically appropriate examination, counseling and educating the patient/family/caregiver, ordering medications, tests, or procedures, and communicating results to the patient/family/caregiver. documented in this encounter [facility] 02-08-2023 Nurse Note Patient presents with: New Patient Evaluation: Referred by RICH Newell/Dr Sadler for possible NELLY. Here to review sleep studies. documented in this encounter [facility] 02-08-2023 History of Presen t illness Narrative Shade Brambila is a 62 year old female with a complaint of blood in underwear. Three episodes over the past three days. No blood in urine or stool. Small amount on tissue paper after wiping. Marilou colored blood. Some urinary frequency. Post menopausal. Had some pain in her left side a few days ago which has resolved. No fever, chills, abdominal pain, or any other complaints. REVIEW OF SYSTEMS See HPI, otherwise unremarkable. PAST MEDICAL HISTORY Diagnosis Date Charcot left foot due to diabetes mellitus (HCC) 05/2013 subsequent to left foot fracture Depression Diabetes (HCC) 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 Vitamin D deficiency 01/05/2017 PAST SURGICAL HISTORY Procedure Laterality Date AMPUTATION TOE,MT-P JT Right 07/2022 Hallux DILATION & CURETTAGE DX&/THER NONOBSTETRIC x3 EXTENSIVE HAND SURGERY Dupuytren contracture TONSILLECTOMY HX FAMILY HISTORY Problem Relation Age of Onset Heart Father CHF Hypertension Father Hypertension Mother other (polycystic kidney disease) Mother Cancer Paternal Aunt breast CA Diabetes Brother other (CHF) Paternal Grandmother Coronary Artery Disease Brother MD and at age 45 Social History Tobacco Use Smoking status: Never Smokeless tobacco: Never Vaping Use Vaping Use: Never used Substance Use Topics Alcohol use: Yes Comment: Occ Drug use: No PHYSICAL EXAMINATION: Vitals: BP 164/81 Pulse 80 Temp 36.5 C (97.7 F) Ht 172.7 cm (5' 7.99) Wt 97.3 kg (214 lb 6.4 oz) SpO2 100% BMI 32.61 kg/m General Appearance: Well appearing, alert, in no acute distress, well-hydrated, well nourished.. Back:no CVA ttp Lungs: Lungs clear to auscultation. No wheezing, rhonchi, rales.. Heart: RRR without murmur, gallop, or rubs. No ectopy. Abdomen: Abdomen soft, non-tender ASSESSMENT: DIAGNOSIS: (R31.9) Hematuria, unspecified type (primary encounter diagnosis) (N95.0) Postmenopausal bleeding PLAN: ASSESSMENT/PLAN: 1. Hematuria, unspecified type - ICD9: 599.70, ICD10: R31.9 (primary diagnosis) Urine POC moderate blood, protein. Sent for cx, micro. Macrobid. Push fluids. - URINE CULTURE - URINALYSIS, WITH MICROSCOPIC 2. Postmenopausal bleeding - ICD9: 627.1, ICD10: N95.0 Possible vaginal bleeding. - CONSULT TO PATIENT ACCESS SPECIALIST Follow up in the interim for new or worsening sx. Pt in agreement with the plan and verbalized understanding Tati Aguilera PA-C HPV TESTING Never done COLORECTAL CANCER SCREENING Never done PAP TESTING due on 01/01/2018 documented in this encounter [facility] 02-05-2023 History of Presen t illness Narrative Images from the original note were not included. Problem list reviewed. CHIEF COMPLAINT: check RT 2nd toe amputation site dehiscence wound, lateral RT hallux wound SP Amputation of RT second toe, ID 10/28/2022 DM II A1c 10.3 DLS 10/12/2022 HISTORY OF PRESENT ILLNESS: Here today for wound check RT second toe amputation dehiscence wound and RT lateral great toe wound. She finished clindamycin. Previously done snap vacs. Last seen by my colleague Dr Moore. She continues HBO. She saw her area field manager who said she has some sleep apnea and said she was good to do HBO. She has to get a nuclear stress test soon. Referred by Dr. Dasilva. 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 Patient denies N/F/V/C/CP/SOB. PCN allergy HX partial amputation RT great toe 07/08/2022 and LEFT great toe wound. Right 2nd toe amputation and hallux I&D 10/28/22 rx circade wraps 08/14/22 CURRENT MEDICATIONS: Cephalexin Oral Tablet 500 MG(10/23/2022) Take 1 tablet three times a day for 7 day(s) Ciprofloxacin HCl Oral Tablet 500 MG(10/23/2022) Take 1 tablet twice a day for 7 day(s) diazePAM Oral Tablet 10 MG(02/19/2022) TAKE 1 TABLET 60 MIN BEFORE TEST Ofloxacin Ophthalmic Solution 0.3 %(02/09/2022) PUT 1 DROP IN LEFT EYE 4 TIMES A DAY FLUoxetine HCl Oral Capsule 40 MG(01/26/2022) Enalapril Maleate Oral Tablet 10 MG(01/26/2022) TAKE 1 TABLET BY MOUTH EVERY DAY Atorvastatin Calcium Oral Tablet 40 MG(04/16/2022) TAKE 1 TABLET BY MOUTH EVERYDAY AT BEDTIME Erythromycin Ophthalmic Ointment 5 MG/GM(02/09/2022) APPLY 1 A SMALL AMOUNT LEFT EYE 4 TIMES A DAY Atorvastatin Calcium Oral Tablet 20 MG(01/26/2022) TAKE 1 TABLET BY MOUTH EVERY DAY Jardiance Oral Tablet 25 MG(03/23/2022) Spironolactone Oral Tablet 25 MG(04/17/2022) Furosemide Oral Tablet 40 MG(03/05/2022) TAKE 1 TABLET BY MOUTH EVERY DAY HumuLIN R U-500 KwikPen Subcutaneous Solution Pen-injector 500 UNIT/ML(09/29/2021) INJECT 90 UNITS SUBCUTANEOUSLY AT BREAKFAST TIME, 40 UNTIS AT LUNCH, AND 90 UNITS AT SUPPER metFORMIN HCl Oral Tablet 1000 MG(04/22/2022) ALLERGIES: Band-Aid Island Surg Dressing Other Bandaging Tape Other PAST MEDICAL HISTORY: Podiatry History remarkable for Foot Numbness, Fungal Nails, Leg or Foot Ulcers. The patient has a past medical history of Arthritis, Depression, DM-Medication Dependent, Poor Circulation. Neuropathy High Cholesterol SURGICAL HISTORY: Hand Tonsils HOSPITALIZATIONS: None Noted SOCIAL HISTORY: Smoking Status: Never smoker; Last Reviewed: 11/02/2022 Alcohol use: social drinker No drug use Social History Reviewed (01/16/2021 11:20:18 AM EST) FAMILY HISTORY: There is a family history of Denial of any knowledge of significant family history. Denial of any knowledge of significant family history Family History Reviewed (01/16/2021 11:20:19 AM EST) REVIEW OF SYSTEMS: Psychologic: Admits to No psych symptoms. Review of systems otherwise negative PHYSICAL EXAMINATION: Vital Signs: Weight 235 lbs; Height 5 ft 8 in; BMI 35.7 02/03/2023 10:52 AM (EST) Temperature 98.6 F; Pulse Rate 100 bpm; Blood Pressure 120 / 80 mm/Hg Vascular Exam: BL Foot DP / PT pulses +2/4 CFT less than 3 seconds to digits, skin temp warm to warm from proximal to distal BL Foot Dermatologic Exam: RIGHT 2nd amputation site wound predebridement measures 2.6x0.2x0.1cm and post debridement measures 2.7x0.5x0.2cm with granular base, surrounding slough, no surrounding maceration, no erythema, no purulence, no probe to bone, no malodor, moderate serosanguinous drainage. Central skin island noted. Into level of SUBCUTANEOUS tissue. RIGHT lateral hallux wound healed RIGHT 3rd toe tuft wound remains healed Nails 1-5 left and 3-5 RT Bilateral are thickened, elongated and discolored with subungual debris. The nails are greater than .3mm in thickness. The discoloration is yellowish in color. Innerspaces 1-4bl are clean dry and intact. Skin texture and turgor are decreased. absent or decreased hair growth bilateral. nail changes bilateral Neurologic Exam: Comments/Other Findings: Vibratory sensations decreased BL at the MPJ, Protective sensations absent BL tested with 5.07 monofilament, and light, sharp, and temperature sensations intact bl. Muscle Testing of the Extensors, Flexors, Evertors (peroneals), and Invertors (posterior tibialis) BL leg shows 5/5 testing noted. Normal Babinski test noted bl foot after testing Orthopedic Exam: Additional Orthopedic Findings: RT partial great toe and 2nd toe amp noted DIAGNOSIS: Ulcer of right foot with fat layer exposed Right foot pain Pain of toe of right foot Type II diabetes mellitus with neurological manifestations Lymphedema of both lower extremities PVD (peripheral vascular disease) History of amputation of right great toe Amputated toe of right foot Displaced fracture of distal phalanx of left lesser toe(s), subsequent encounter for fracture with routine healing Skin ulcer of right foot including toes with fat layer exposed Non-pressure chronic ulcer of other part of right foot with necrosis of bone Skin ulcer of right foot including toes, limited to breakdown of skin PLAN AND TREATMENT: ASSESMENT & PLAN BL Foot and Ankle and Lower extremity Exam and Evaluation carried out with a treatment plan reviewed with the patient and findings discussed with patient including alternatives, benefits, complications and risks PREVIOUS TESTS / IMAGING / X-RAY EXAM 11/10/22 right foot XR: there is partial great toe noted with no sign of infection. second toe MPJ amp with met head resection noted. 12/22/21 PVR RESULTS: RIGHT SIDE Resting right ankle brachial index: 1.37Right toe brachial index: 0.70Normal ankle brachial index at rest in the right leg. Normal toe brachial index at rest in the right leg. Right ankle: Normal at rest. LEFT SIDE Resting left ankle brachial index: 1.33Left toe brachial index: 0.83Normal ankle brachial index at rest in the left leg. Normal toe brachial index at rest in the left leg. Left ankle: Normal at rest. 11/26/22 CULTURE: Streptococcus mitis-oralis, Staphylococcus epidermidis 11/23/22 left foot XR [facility]: Previous amputation of the second toe and the head of the second metatarsal. Remote healed fracture of the neck of the fifth metatarsal. Previous amputation of the distal phalanx of the great toe. Prominent plantar calcaneal spur. No definite bony destructive change is seen. No soft tissue gas or foreign body. RIGHT 2nd toe amp wound improved. RIGHT lateral hallux ulcer healed. RIGHT 2nd toe amputation site ulcer treated with Excisional debridement carried out of the wound with non selective sharp excisional debridement past the dermis into SUBQ level with use of curette and 15 scalpel bladed debriding non viable tissue out of wound. We then flushed out the wound with wound and put dressing on. Discussed importance in offloading, proper nutrition including blood sugar control and getting enough protein and vitamins, infection prevention, proper wound care in wound healing. Also discussed detrimental impact of smoking on healing. Reviewed proper wound care with patient. Dressing was applied today. To watch for signs of infection both local and systemic. These were reviewed with the patient. If seen to contact office or go to ED. To continue wound care consisting of washing the wound with soap and water or vashe solution. Then to apply dressing consisting of silver alginate and incorporate into graft dressing to hallux. To 2nd amputation site ulcer apply graft. A procedural pause was conducted immediately prior to starting the wound debridement to verify correct patient identity using two patient identifiers: the correct site and correct procedure. Permission from the patient to perform the procedure was obtained. We prepared the site for the graft application with remove the devitalized tissue and then doing cross hatching and preparing base with to promote a healthy, active wound edge to support healing. The wound base was 100% granular after prepping. Hemostasis was achieved with direct pressure. The wound was then copiously irrigated with saline. Patient tolerated this well without complications. FIFTH application of APLIFGRAF skin graft to RIGHT 2nd toe amputation site wound dehiscence. After site was cleaned and prepped skin graft was applied to the area. This was secured with adaptic touch and steri strips. Site was covered alginate, gauze, and gauze roll. This is to clean, dry and intact until next appointment. Outer dressing above the steri strips can be changed for saturation every 2-3 days or PRN She knows she is at risk for further amputation such as TMA and for admission to hospital with infection. she finished clindamycin cont HBO Follow up at [facility] for ulcer check 1 week for wound check Ulcer of right foot with fat layer exposed 707.15 L97.512 & Right foot pain 729.5 M79.671 & Pain of toe of right foot 729.5 M79.674 & Type II diabetes mellitus with neurological manifestations 250.60 E11.49 & Lymphedema of both lower extremities 457.1 I89.0 & PVD (peripheral vascular disease) 443.9 I73.9 & History of amputation of right great toe V49.71 Z89.411 & Amputated toe of right foot 895.0 S98.131A & Displaced fracture of distal phalanx of left lesser toe(s), subsequent encounter for fracture with routine healing V54.19 S92.532D & Skin ulcer of right foot including toes with fat layer exposed 707.15 L97.512 & Non-pressure chronic ulcer of other part of right foot with necrosis of bone 707.15 L97.514 & Skin ulcer of right foot including toes, limited to breakdown of skin 707.15 L97.511 documented in this encounter [facility] 02-05-2023 History of Presen t illness Narrative 62 year old female presenting for follow up I have fully reviewed the past medical, surgical, social and family history and [facility] HTN At goal Hx of mild nc nc anemia Resolved B12 noted to be low on supplementation IM qmonth 1000mcg Colonoscopy pending Current Outpatient Medications on File Prior to Visit: Current Outpatient Medications Medication Sig Dispense Refill fluticasone (FLONASE) 50 mcg/actuation nasal spray Use 2 Sprays in each nostril once daily. X 7 days then may use as needed for nasal congestion 1 spray each nostril as needed thereafter Zinc 50 mg tab Take 50 mg by mouth once daily. atorvastatin (LIPITOR) 80 mg tablet Take 1 tablet by mouth once daily. 90 tablet 3 metFORMIN (GLUCOPHAGE) 1,000 mg tablet TAKE 1 TABLET BY MOUTH TWICE DAILY WITH MEALS. E11.3599 (Patient taking differently: Take 1,000 mg by mouth twice daily with meals. E11.3599 Patient states she only takes once per day) 180 tablet 3 multivit,thx,calcium,iron,mins (MULTIVITAMIN AND MINERAL ORAL) Take 1 tablet by mouth once daily. Ascorbic Acid 1,000 mg tablet Take 1,000 mg by mouth once daily. insulin regular human, CONCENTRATED 500 UNIT/ML, (HUMULIN R) 500 unit/mL (3 mL) inpn 100 units sc at breakfast, 40 units at lunch, 80 units at supper. (Patient taking differently: 40 units sc at breakfast, 100 units at lunch, 80 units at supper.) 42 mL 3 blood sugar diagnostic (ACCU-CHEK JOSE PLUS TEST STRP) test strip USE TO TEST BLOOD GLUCOSE 3 TIMES DAILY. 300 Strip 1 ibuprofen (ADVIL ORAL) Take 3 tablets by mouth as needed. empagliflozin (JARDIANCE) 25 mg tablet Take 1 tablet by mouth daily with breakfast. 90 tablet 3 spironolactone (ALDACTONE) 25 mg tablet Take 12.5 mg by mouth once daily. Take half tablet by mouth daily furosemide (LASIX ORAL) Take 40 mg by mouth once daily. FLUoxetine (PROZAC) 40 mg capsule Take by mouth q 24 HR. lancets (ONE TOUCH DELICA) 33 gauge USE TO BLOOD GLUCOSE 3 TIMES DAILY. INSULIN DEPENDENT E11.3299, E11.65, Z79.4 300 Each 3 insulin needles, DISPOSABLE, (BD INSULIN PEN NEEDLE UF) 31 gauge x 5/16 FOUR DAILY FOR INSULIN INJECTIONS. 400 Each 1 enalapril (VASOTEC) 10 mg tablet Take 1 tablet by mouth once daily. 90 tablet 3 Blood-Glucose Meter misc Use to test blood glucose 3 times daily. Insulin Dependent E11.3299, E11.65, Z79.4 1 Each 0 Cholecalciferol, Vitamin D3, 50 mcg (2,000 unit) cap Take 1 tablet by mouth once daily. Blood Pressure Monitor Please monitor blood pressure 1-2 hours after taking morning medications. 1 Kit 0 Current Facility-Administered Medications Medication Dose Route Frequency Provider Last Rate Last Admin cyanocobalamin 1,000 mcg injection 1,000 mcg INTRAMUSCULAR q 1 MONTH Eldon Gill, DO 1,000 mcg at 01/12/23 1349 ALLERGIES Allergen Reactions Amoxicillin Unknown Patient does not remember reaction Codeine Other: See Comments Patient states Makes her Hyper PAST SURGICAL HISTORY Procedure Laterality Date AMPUTATION TOE,MT-P JT Right 07/2022 Hallux DILATION & CURETTAGE DX&/THER NONOBSTETRIC x3 EXTENSIVE HAND SURGERY Dupuytren contracture TONSILLECTOMY HX Social history reviewed in [facility]. REVIEW OF SYSTEMS: Constitutional: Denies fever, denies chills, denies fatigue Head: Denies headache Eyes: Denies changes in vision or blurry vision Ears/Nose/Throat: Denies sore throat, denies rhinorrhea Musculoskeletal: Denies joint pain, denies myalgias Abd: No abd pain, no vomiting, no diarrhea, no nausea Skin/Breast: Denies rash or lesions Cardiovascular: Denies chest pain, denies palpitations, denies LE edema Respiratory: Denies cough, denies SOB, denies wheezing Neurological: Denies numbness, denies tingling, denies weakness PHYSICAL EXAMINATION: General appearance: Well appearing, alert, in no acute distress, well-hydrated, well nourished. Skin: no suspicious rashes or lesions Head: Normocephalic, atraumatic Eyes: Anicteric sclera. Pupils are equally round and reactive to light. Extraocular movements are intact. Ears: External ears normal, canals clear Nose/Sinuses: Nares normal, septum midline, mucosa normal, Oropharynx: Lips, mucosa, and tongue normal, good dentition, no pharyngeal erythema or exudates Neck: Supple, no adenopathy Lungs: Lungs clear to auscultation. No wheezing, rhonchi, rales. Heart: RRR without murmur, gallop, or rubs. Abdomen: Normal abdominal exam, Abdomen soft, non-tender. No masses Extremities: No deformities, no edema, no cyanosis. Musculoskeletal: No joint swelling, no deformity Neuro: Gait normal. Speech intact ASSESSMENT/PLAN: 1. Encounter for immunization - ICD9: V03.89, ICD10: Z23 (primary diagnosis) - ZOSTER VACCINE, RECOMBINANT (SHINGRIX) 2. Vitamin B12 deficiency - ICD9: 266.2, ICD10: E53.8 - CYANOCOBALAMIN (VIT B-12) 1,000 MCG/ML INJECTION SOLUTION - CBC + DIFF - BASIC METABOLIC PNL - HGB A1C - VITAMIN B12 BLOOD 3. Primary hypertension - ICD9: 401.9, ICD10: I10 - Recommend home blood pressure monitoring, to bring results to next visit - Encouraged sodium restriction, DASH or Mediterranean diet - Recommend regular aerobic exercise At goal today continue regimen 6 month follow up otherwise Discussed with patient red flag symptoms. Discussed risks and benefits of treatment plan. Pt understands to seek appropriate evaluation for new or worsening symptoms. Patient understands and agrees with plan, all concerns and questions addressed. documented in this encounter [facility] 02-04-2023 Instructions Li Munoz RN - 02/04/2023 8:25 AM EDT WOUND CARE INSTRUCTIONS- Shade Lobokler Wound location: Right 2nd toe amp site - Apligraf skin graft applied this visit. Leave graft dressing clean, dry, and intact until your next appointment on 01/21/23. If outer dressing needs changed okay to remove outer dressing only (change calcium alginate, gauze, and conform, and tape only) leaving steri-strips down to wound bed intact. - Moisturize Both Legs Daily avoiding graft dressing to Right Foot. - Apply single layer tubi-exterminator termite to bilateral lower legs and then wrap circaids overtop left lower leg Compression must be removed if: it becomes wet or soiled If you have numbness or tingling in your foot or toes If you have increased pain If toes become cold or discolored - Avoid sitting with legs in a dependent position or standing for long periods of time. - Attempt to lay flat and elevate your legs above the level of your heart 2-3 times daily, for 30 minutes at a time. - Be sure to continue walking and/or calf pumps and exercises to mimic writing the alphabet with your foot, as instructed - Control your sodium intake as instructed by provider To give your wound the best chance to heal: - Eat three balanced meals daily focusing on the protein - Control your blood sugar. Keep blood sugar less than 200 - Complete your wound care instructions as ordered - Vitamin C 500 mg twice daily - Multiple Vitamin Daily - Drink a protein shake daily - Premiere Clear or Glucerna for Diabetic patients, Nepro for renal patients and premiere for non-renal and non-diabetic patients Report any of the following signs and symptoms of infection to the Wound Center at [phone] or go to the Emergency Department: Fever or chills Increased drainage Green or yellow drainage Foul odor Increased pain Hardness around the wound Redness, warmth or swelling of the surrounding tissue Color change to the wound Evenings / Weekends / Holidays If you call the wound center at the phone number provided above, please leave a detailed message that includes your full name, birthday, and phone number. We are seeing patients during the day, so we will return your call within a 24-48 hr period in the order your call was received. There is not an on-call provider assigned to the wound center. If you have an emergency that needs to be addressed, please go to an Urgent Care or Emergency Room. Thank you for your cooperation and understanding. PLAN/ORDERS: Return to the wound center to see Dr. Hu Pickard on February 11 at 8:00 am. Continue aggressive nutritional support to assist wound healing. Call [employer] for more supplies, can re-order every 30 days. Phone #: [phone] Continue with HOBT treatment. Follow up with your PCP regarding elevated blood pressure. Last graft applied at today's appointment. Hu Pickard DPM/SP/CIARA documented in this encounter [facility] 02-04-2023 Nurse Note Nursing Documentation Pertinent Medical History: DM2, HTN, venous insufficiency, & heart failure Wound Etiology according to patient: Wounds spontaneously opened up over last 2 months Patient arrived via: Ambulatory with [employer]/Nursing Facility: N/A Consent captured for debridement per Dr Cici KENNEY and linda until May 2023 Consent captured for debridement per Dr. Neeraj KENNEY and linda until May 2023 Consent captured for debridement per Dr. Alfredo Moore DPM and linda until May 2023 Anticoagulant Therapy: N/A ACTIVE CARE PER PROVIDER: Giovanni Bolanos DPM, Hu Pickard DPM, & Alfredo Moore DPM WOUND # 1 -22 previously closed WOUND # 24, 25 previously closed WOUND # 27 LOCATION: Right dorsal Foot - intact bulla on arrival - new 11/26/22 Blister dry, intact closed skin 12/03/22, closed 12/07/22 WOUND ASSESSMENT: Refer to Provider's Wound Assessment Note VASCULAR ASSESSMENT BY PROVIDER: See provider wound assessment note CHF History: Yes as of February 2022, Dr. Sadler in Cardiology EDEMA: Right Foot: None Right Calf: None Left Calf: N/A Left Foot N/A Other: N/A MEASUREMENTS: in cm Right Calf: 34.0 Right Ankle: 22.7 Left Calf: N/A Left Ankle: N/A Length: 43.0 WOUND PHOTOGRAPHY: Yes x 1 DEBRIDEMENT PROCEDURE BY PROVIDER: Anesthetic Used: Insensate Other procedure: N/A Specimen collected: N/A WOUND TREATMENT PER MD ORDER: Wounds cleansed by mechanical debridement to allow provider to visualize wound base Application Dates: 01/07/2023 Apligraf 01/15/2023 Apligraf 01/21/2023 Apligraf 01/27/2023 Apligraf 02/04/2023 Apligraf Graft was prepared using 0.9% saline solution per medication reconciliation technician instructions. 0.9% saline solution Lot #: [id number] Expiration Date: 08-05-2024 [employer] - APLIGRAF: 44 cm2 - 33% used with 67% wasted - applied by Provider LOT #: [id number] EXP: 02-05-2023 PH: 6.8-7.3 WOUND # 23 - LOCATION: Right 2nd Toe AMP Site L: 2.7 cm x W: 0.5 cm x D: 0.2 cm DEBRIDEMENT by provider: SubQ Cleansed with: Dial soap, water, Vashe, & NS Applied to naya-wound skin: Skin prep Applied to wound bed: Apligraf, adaptic touch steri-strips, & calcium alginate Covered and secured with: Folded 4x4, 1/2 ABD, conform, & tape. Other: Vaseline to intact skin WOUND # 26 - LOCATION: Right Great Toe - Hallux Lateral- (new 11/10/22) - closed 01/15/23, remains closed 01-28-2023 - Area of concern: New 01/21/23 Right Steiner (Blister)- Skin prep applied, covered with gauze, conform. Resolved 01-28-2023 COMPRESSION: Single layer Tubi-Quality Assurance Tester size D to right lower leg, pt's own Circaid present on left lower leg SPECIAL NEEDS: Coordination of care: Dr. Benitez with HBOT in to evaluate Emotional support N/A OR set-up N/A Yarn Examiner N/A Incontinence needs N/A DISCHARGED in stable condition to: Ambulatory to HBOT with cane PLAN/ORDERS: Return to the wound center to see Dr. Hu Pickard on February 11 at 8:00 am. Continue aggressive nutritional support to assist wound healing. Call [employer] for more supplies, can re-order every 30 days. Phone #: [phone] Continue with HOBT treatment. Follow up with your PCP regarding elevated blood pressure. Last graft applied at today's appointment. EDUCATION: The patient/family was instructed how to cleanse the wound(s). Visual demonstration on how to apply the dressing with teach back method. Signs & symptoms of infection were reviewed: Increased redness, swelling, pain, green/yellow drainage, fever and/or chills would all need to be evaluated by a Physician. Patient received typed home-going wound care instructions and has expressed intent to comply. OTHER EDUCATION: Provider discussed last Apligraf application, progression of wound healing, continuation of current wound care, and follow-up. Education performed regarding lymphedema/edema: Elevation of extremity above the heart for 30 minutes three times daily and as needed Exercise such as writing the ABC's with your toes in the air, walking and/or calf pumps Wearing compression as ordered by provider Diet controlling of sodium as instructed by provider Use of medication to help control edema. UNIVERSAL PROTOCOL / SAFETY CHECKLIST Procedure to be Performed: Sharp wound debridement of Right Foot Sign In: 0820 A Moment of CARE was completed. Personnel directly involved with the procedure wore the appropriate PPE (Personal Protective Equipment). Patient/Surrogate Stated/Verified: PATIENT VERIFIED(optional for EMERGENT procedures): Patient name, Date of , Relevant allergies, and The intended procedure Time Out Communication: 0828 Intended patient and procedure match the source documents. Consent documented and matches the intended procedure. Sign Out: 0828 SIGN OUT (optional for EMERGENT procedures): All instruments, equipment, possible retained foreign bodies accounted for. Post-procedure follow-up management communicated and Plan of Care Visit completed when applicable. Current HBOT Status: Active or Complete - see screening below WOUND CENTER HYPERBARIC OXYGEN THERAPY SCREENING 1. Is the patient diabetic? (If No, skip to question 5) Yes 2. Does the patient have a lower extremity wound? Yes 3. Is there exposed/involved tendon or bone? 4. Has the wound been present for 30 days? Yes If Yes to ALL questions above, consult the Hyperbaric Center 5. Has the patient been diagnosed with osteomyelitis? No 6. Has the patient had a previous skin graft or flap at the wound? No 7. Has the patient had or been offered vascular intervention/evaluation? No 8. Does the patient have a wound at an amputation site? Yes 9. Has the patient had radiation therapy at the site of the problem? No If Yes to ANY of questions 5-9, consult the Hyperbaric Center Active in HBO. Li Munoz RN/SP documented in this encounter [facility] 01-18-2023 History of Presen t illness Narrative Images from the original note were not included. Problem list reviewed. CHIEF COMPLAINT: check RT 2nd toe amputation site dehiscence wound, lateral RT hallux wound SP Amputation of RT second toe, ID 10/28/2022 DM II A1c 10.3 DLS 10/12/2022 HISTORY OF PRESENT ILLNESS: Here today for wound check RT second toe amputation dehisence wound and RT lateral great toe wound. Denies pain. She finished clindamycin. Previously done snap vacs. Last seen by my colleague Dr Moore. She continues HBO. She saw her area field manager who said she has some sleep apnea and said she was good to do HBO. She has to get a nuclear stress test soon. Referred by Dr. Dasilva. 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 Patient denies N/F/V/C/CP/SOB. PCN allergy HX partial amputation RT great toe 07/08/2022 and LEFT great toe wound. Right 2nd toe amputation and hallux I&D 10/28/22 rx circade wraps 08/14/22 CURRENT MEDICATIONS: Cephalexin Oral Tablet 500 MG(10/23/2022) Take 1 tablet three times a day for 7 day(s) Ciprofloxacin HCl Oral Tablet 500 MG(10/23/2022) Take 1 tablet twice a day for 7 day(s) diazePAM Oral Tablet 10 MG(02/19/2022) TAKE 1 TABLET 60 MIN BEFORE TEST Ofloxacin Ophthalmic Solution 0.3 %(02/09/2022) PUT 1 DROP IN LEFT EYE 4 TIMES A DAY FLUoxetine HCl Oral Capsule 40 MG(01/26/2022) Enalapril Maleate Oral Tablet 10 MG(01/26/2022) TAKE 1 TABLET BY MOUTH EVERY DAY Atorvastatin Calcium Oral Tablet 40 MG(04/16/2022) TAKE 1 TABLET BY MOUTH EVERYDAY AT BEDTIME Erythromycin Ophthalmic Ointment 5 MG/GM(02/09/2022) APPLY 1 A SMALL AMOUNT LEFT EYE 4 TIMES A DAY Atorvastatin Calcium Oral Tablet 20 MG(01/26/2022) TAKE 1 TABLET BY MOUTH EVERY DAY Jardiance Oral Tablet 25 MG(03/23/2022) Spironolactone Oral Tablet 25 MG(04/17/2022) Furosemide Oral Tablet 40 MG(03/05/2022) TAKE 1 TABLET BY MOUTH EVERY DAY HumuLIN R U-500 KwikPen Subcutaneous Solution Pen-injector 500 UNIT/ML(09/29/2021) INJECT 90 UNITS SUBCUTANEOUSLY AT BREAKFAST TIME, 40 UNTIS AT LUNCH, AND 90 UNITS AT SUPPER metFORMIN HCl Oral Tablet 1000 MG(04/22/2022) ALLERGIES: Band-Aid [place] Surg Dressing Other Bandaging Tape Other PAST MEDICAL HISTORY: Podiatry History remarkable for Foot Numbness, Fungal Nails, Leg or Foot Ulcers. The patient has a past medical history of Arthritis, Depression, DM-Medication Dependent, Poor Circulation. Neuropathy High Cholesterol SURGICAL HISTORY: Hand Tonsils HOSPITALIZATIONS: None Noted SOCIAL HISTORY: Smoking Status: Never smoker; Last Reviewed: 11/02/2022 Alcohol use: social drinker No drug use Social History Reviewed (01/16/2021 11:20:18 AM EST) FAMILY HISTORY: There is a family history of Denial of any knowledge of significant family history. Denial of any knowledge of significant family history Family History Reviewed (01/16/2021 11:20:19 AM EST) REVIEW OF SYSTEMS: Psychologic: Admits to No psych symptoms. Review of systems otherwise negative PHYSICAL EXAMINATION: Vital Signs: Weight 235 lbs; Height 5 ft 8 in; BMI 35.7 01/15/2023 12:02 PM (EST) Temperature 98.6 F; Pulse Rate 100 bpm; Blood Pressure 120 / 80 mm/Hg Vascular Exam: BL Foot DP / PT pulses +2/4 CFT less than 3 seconds to digits, skin temp warm to warm from proximal to distal BL Foot Dermatologic Exam: RIGHT 2nd amputation site wound predebridement measures 3.5x0.3x0.2cm and post debridement measures 3.8x0.4x0.3cm with 85:15 granular fibrotic base, surrounding slough, no surrounding maceration, no erythema, no purulence, no probe to bone, no malodor, moderate serosanguinous drainage. Into level of SUBCUTANEOUS tissue. RIGHT lateral hallux wound healed RIGHT 3rd toe tuft wound remains healed Nails 1-5 left and 3-5 RT Bilateral are thickened, elongated and discolored with subungual debris. The nails are greater than .3mm in thickness. The discoloration is yellowish in color. Innerspaces 1-4bl are clean dry and intact. Skin texture and turgor are decreased. absent or decreased hair growth bilateral. nail changes bilateral Neurologic Exam: Comments/Other Findings: Vibratory sensations decreased BL at the MPJ, Protective sensations absent BL tested with 5.07 monofilament, and light, sharp, and temperature sensations intact bl. Muscle Testing of the Extensors, Flexors, Evertors (peroneals), and Invertors (posterior tibialis) BL leg shows 5/5 testing noted. Normal Babinski test noted bl foot after testing Orthopedic Exam: Additional Orthopedic Findings: RT partial great toe and 2nd toe amp noted DIAGNOSIS: Ulcer of right foot with fat layer exposed Right foot pain Pain of toe of right foot Type II diabetes mellitus with neurological manifestations Lymphedema of both lower extremities PVD (peripheral vascular disease) History of amputation of right great toe Amputated toe of right foot Displaced fracture of distal phalanx of left lesser toe(s), subsequent encounter for fracture with routine healing Skin ulcer of right foot including toes with fat layer exposed Non-pressure chronic ulcer of other part of right foot with necrosis of bone Skin ulcer of right foot including toes, limited to breakdown of skin PLAN AND TREATMENT: ASSESMENT & PLAN BL Foot and Ankle and Lower extremity Exam and Evaluation carried out with a treatment plan reviewed with the patient and findings discussed with patient including alternatives, benefits, complications and risks PREVIOUS TESTS / IMAGING / X-RAY EXAM 11/10/22 right foot XR: there is partial great toe noted with no sign of infection. second toe MPJ amp with met head resection noted. 12/22/21 PVR RESULTS: RIGHT SIDE Resting right ankle brachial index: 1.37Right toe brachial index: 0.70Normal ankle brachial index at rest in the right leg. Normal toe brachial index at rest in the right leg. Right ankle: Normal at rest. LEFT SIDE Resting left ankle brachial index: 1.33Left toe brachial index: 0.83Normal ankle brachial index at rest in the left leg. Normal toe brachial index at rest in the left leg. Left ankle: Normal at rest. 11/26/22 CULTURE: Streptococcus mitis-oralis, Staphylococcus epidermidis 11/23/22 left foot XR [facility]: Previous amputation of the second toe and the head of the second metatarsal. Remote healed fracture of the neck of the fifth metatarsal. Previous amputation of the distal phalanx of the great toe. Prominent plantar calcaneal spur. No definite bony destructive change is seen. No soft tissue gas or foreign body. RIGHT 2nd toe amp wound improved. RIGHT lateral hallux ulcer healed. RIGHT 2nd toe amputation site ulcer Excisional debridement carried out of the wound with non selective sharp excisional debridement past the dermis into SUBQ level with use of curette and 15 scalpel bladed debriding non viable tissue out of wound. We then flushed out the wound with wound and put dressing on. Discussed importance in offloading, proper nutrition including blood sugar control and getting enough protein and vitamins, infection prevention, proper wound care in wound healing. Also discussed detrimental impact of smoking on healing. Reviewed proper wound care with patient. Dressing was applied today. To watch for signs of infection both local and systemic. These were reviewed with the patient. If seen to contact office or go to ED. To continue wound care consisting of washing the wound with soap and water or vashe solution. Then to apply dressing consisting of gentian rimma periwound and skin graft. Held snap vac while doing graft. A procedural pause was conducted immediately prior to starting the wound debridement to verify correct patient identity using two patient identifiers: the correct site and correct procedure. Permission from the patient to perform the procedure was obtained. We prepared the site for the graft application with remove the devitalized tissue and then doing cross hatching and preparing base with to promote a healthy, active wound edge to support healing. The wound base was 100% granular after prepping. Hemostasis was achieved with direct pressure. The wound was then copiously irrigated with saline. Patient tolerated this well without complications. SECOND application of APLIFGRAF skin graft to RIGHT 2nd toe amputation site wound dehiscence. After site was cleaned and prepped skin graft was applied to the area. This was secured with adaptic touch and steri strips. Site was covered alginate, gauze, and gauze roll. This is to clean, dry and intact until next appointment. Outer dressing above the steri strips can be changed for saturation every 2-3 days or PRN She knows she is at risk for further amputation such as TMA and for admission to hospital with infection. Discussed need to keep wounds dry, maceration noted but improving she finished clindamycin cont HBO Relates she will be sending paperwork to office for FMLA Follow up at [facility] for ulcer check 1 week for wound check and graft Ulcer of right foot with fat layer exposed 707.15 L97.512 & Right foot pain 729.5 M79.671 & Pain of toe of right foot 729.5 M79.674 & Type II diabetes mellitus with neurological manifestations 250.60 E11.49 & Lymphedema of both lower extremities 457.1 I89.0 & PVD (peripheral vascular disease) 443.9 I73.9 & History of amputation of right great toe V49.71 Z89.411 & Amputated toe of right foot 895.0 S98.131A & Displaced fracture of distal phalanx of left lesser toe(s), subsequent encounter for fracture with routine healing V54.19 S92.532D & Skin ulcer of right foot including toes with fat layer exposed 707.15 L97.512 & Non-pressure chronic ulcer of other part of right foot with necrosis of bone 707.15 L97.514 & Skin ulcer of right foot including toes, limited to breakdown of skin 707.15 L97.511 documented in this encounter [facility] 01-15-2023 Instructions Portia Holguin RN - 01/15/2023 8:38 AM EDT WOUND CARE INSTRUCTIONS- Shade Brambila Wound location: Right 2nd toe amp site - Apligraf skin graft applied this visit. Leave graft dressing clean, dry, and intact until your next appointment on 01/21/23. If outer dressing needs changed okay to remove outer dressing only (change calcium alginate, gauze, and conform, and tape only) leaving steri-strips down to wound bed intact. - Moisturize Both Legs Daily avoiding graft dressing to Right Foot. - Apply single layer tubi-exterminator termite to bilateral lower legs and then wrap circaids overtop left lower leg Compression must be removed if: it becomes wet or soiled If you have numbness or tingling in your foot or toes If you have increased pain If toes become cold or discolored - Avoid sitting with legs in a dependent position or standing for long periods of time. - Attempt to lay flat and elevate your legs above the level of your heart 2-3 times daily, for 30 minutes at a time. - Be sure to continue walking and/or calf pumps and exercises to mimic writing the alphabet with your foot, as instructed - Control your sodium intake as instructed by provider To give your wound the best chance to heal: - Eat three balanced meals daily focusing on the protein - Control your blood sugar. Keep blood sugar less than 200 - Complete your wound care instructions as ordered - Vitamin C 500 mg twice daily - Multiple Vitamin Daily - Drink a protein shake daily - Premiere Clear or Glucerna for Diabetic patients, Nepro for renal patients and [facility] for non-renal and non-diabetic patients Report any of the following signs and symptoms of infection to the Wound Center at [phone] or go to the Emergency Department: Fever or chills Increased drainage Green or yellow drainage Foul odor Increased pain Hardness around the wound Redness, warmth or swelling of the surrounding tissue Color change to the wound Evenings / Weekends / Holidays If you call the wound center at the phone number provided above, please leave a detailed message that includes your full name, birthday, and phone number. We are seeing patients during the day, so we will return your call within a 24-48 hr period in the order your call was received. There is not an on-call provider assigned to the wound center. If you have an emergency that needs to be addressed, please go to an Urgent Care or Emergency Room. Thank you for your cooperation and understanding. PLAN/ORDERS: Return to the wound center to see Dr. Hu Pickard on the following dates: - 01/21/23 at 8:30 am - 01/25/23 at 8:30 am - 01/28/23 at 8:30 am - 02/04/23 at 8:00 am Continue aggressive nutritional support to assist wound healing. Call [employer] [facility] for more supplies, can re-order every 30 days. Phone #: [phone] Continue with HOBT treatment. Follow up with your PCP regarding elevated blood pressure. Hu Pickard DPM /martha/arnold documented in this encounter [facility] 01-15-2023 Nurse Note Nursing Documentation Pertinent Medical History: DM2, HTN, venous insufficiency, & heart failure Wound Etiology according to patient: Wounds spontaneously opened up over last 2 months Patient arrived via: Ambulatory with cane with a friend Home Care Company/Nursing Facility: N/A Consent captured for debridement per Dr Cici KENNEY and linda until May 2023 Consent captured for debridement per Dr. Neeraj KENNEY and linda until May 2023 Consent captured for debridement per Dr. Alfredo Moore, DPM and good until May 2023 Anticoagulant Therapy: N/A ACTIVE CARE PER PROVIDER: Giovanni Bolanos DPM, Hu Pickard DPM, & Alfredo Moore DPM WOUND # 1 -22 previously closed WOUND # 24, 25 previously closed WOUND # 27 LOCATION: Right dorsal Foot - intact bulla on arrival - new 11/26/22 Blister dry, intact closed skin 12/03/22, closed 12/07/22 WOUND ASSESSMENT: Refer to Provider's Wound Assessment Note VASCULAR ASSESSMENT BY PROVIDER: See provider wound assessment note CHF History: Yes as of February 2022, Dr. Sadler in Cardiology EDEMA: Right Foot: trace Right Calf: 1+ Left Calf: N/A Left Foot N/A Other: N/A MEASUREMENTS: in cm Right Calf: 34.5 Right Ankle: 21.5 Left Calf: N/A Left Ankle: N/A Length: 43.0cm WOUND PHOTOGRAPHY: no DEBRIDEMENT PROCEDURE BY PROVIDER: Anesthetic Used: Insensate Other procedure: N/A Specimen collected: N/A WOUND TREATMENT PER MD ORDER: Wounds cleansed by mechanical debridement to allow provider to visualize wound base Application Dates: 01/07/2023 Apligraf 2. /08/28 Apligraf 3. 4. 5. Graft was prepared using 0.9% saline solution per medication reconciliation technician instructions. 0.9% saline solution Lot #: [id number] Expiration Date: 09-05-2025 Organogenesis - APLIGRAF: 44 cm2 - 33% used with 67% wasted - applied by Provider LOT #: [id number] EXP: 01-21-2023 PH: 6.8-7.3 WOUND # 23 - LOCATION: Right 2nd Toe AMP Site L: 3.8 cm x W: 0.4 cm x D: 0.3 cm DEBRIDEMENT by provider: SubQ Cleansed with: Vashe, saline rinse Applied to naya-wound skin: skin prep, mastisol Applied to wound bed: apligraf, adaptic touch steri-strips, calcium alginate Covered and secured with: folded 4x4, 1/2 ABD, conform, tape. Other: Vaseline to intact skin WOUND # 26 - LOCATION: Right Great Toe - Hallux Lateral- (new 11/10/22) - closed 01/15/23 COMPRESSION: Single layer Tubi-Quality Assurance Tester size D to right lower leg, pt's own Circaid present on left lower leg SPECIAL NEEDS: Coordination of care: Stephenie CABRERA with HBOT in to evaluate Emotional support N/A OR set-up N/A Yarn Examiner N/A Incontinence needs N/A DISCHARGED in stable condition to: Ambulatory to HBOT with cane PLAN/ORDERS: Return to the wound center to see Dr. Hu Pickard on the following dates: - 01/21/23 at 8:30 am - 01/25/23 at 8:30 am - 01/28/23 at 8:30 am - 02/04/23 at 8:00 am Continue aggressive nutritional support to assist wound healing. Call [employer] for more supplies, can re-order every 30 days. Phone #: [phone] Continue with HOBT treatment. Follow up with your PCP regarding elevated blood pressure. EDUCATION: The patient/family was instructed how to cleanse the wound(s). Visual demonstration on how to apply the dressing with teach back method. Signs & symptoms of infection were reviewed: Increased redness, swelling, pain, green/yellow drainage, fever and/or chills would all need to be evaluated by a Physician. Patient received typed home-going wound care instructions and has expressed intent to comply. OTHER EDUCATION: Provider discussed follow up, new wound care, apligraf. Education performed regarding lymphedema/edema: Elevation of extremity above the heart for 30 minutes three times daily and as needed Exercise such as writing the ABC's with your toes in the air, walking and/or calf pumps Wearing compression as ordered by provider Diet controlling of sodium as instructed by provider Use of medication to help control edema. UNIVERSAL PROTOCOL / SAFETY CHECKLIST Procedure to be Performed: sharp wound debridement of Right Foot Sign In: 09 A Moment of CARE was completed. Personnel directly involved with the procedure wore the appropriate PPE (Personal Protective Equipment). Patient/Surrogate Stated/Verified: PATIENT VERIFIED(optional for EMERGENT procedures): Patient name, Date of , Relevant allergies, and The intended procedure Time Out Communication:[id number] Intended patient and procedure match the source documents. Consent documented and matches the intended procedure. Sign Out: 0845 SIGN OUT (optional for EMERGENT procedures): All instruments, equipment, possible retained foreign bodies accounted for. Post-procedure follow-up management communicated and Plan of Care Visit completed when applicable. Current HBOT Status: Active or Complete - see screening below WOUND CENTER HYPERBARIC OXYGEN THERAPY SCREENING 1. Is the patient diabetic? (If No, skip to question 5) Yes 2. Does the patient have a lower extremity wound? Yes 3. Is there exposed/involved tendon or bone? 4. Has the wound been present for 30 days? Yes If Yes to ALL questions above, consult the Hyperbaric Center 5. Has the patient been diagnosed with osteomyelitis? No 6. Has the patient had a previous skin graft or flap at the wound? No 7. Has the patient had or been offered vascular intervention/evaluation? No 8. Does the patient have a wound at an amputation site? Yes 9. Has the patient had radiation therapy at the site of the problem? No If Yes to ANY of questions 5-9, consult the Hyperbaric Center Active in HBO. documented in this encounter [facility] 01-08-2023 History of Presen t illness Narrative Images from the original note were not included. Problem list reviewed. CHIEF COMPLAINT: check RT 2nd toe amputation site dehiscence wound, lateral RT hallux wound SP Amputation of RT second toe, ID 10/28/2022 DM II A1c 10.3 DLS 10/12/2022 HISTORY OF PRESENT ILLNESS: Here today for woudn check RT second toe amputation dehisence wound and RT lateral great toe wound. She finished clindamycin. Previously done snap vacs. Last seen by my colleague Dr Moore. She continues HBO. She saw her area field manager who said she has some sleep apnea and said she was good to do HBO. She has to get a nuclear stress test soon. Referred by Dr. Dasilva. 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 Patient denies N/F/V/C/CP/SOB. PCN allergy HX partial amputation RT great toe 07/08/2022 and LEFT great toe wound. Right 2nd toe amputation and hallux I&D 10/28/22 rx circade wraps 08/14/22 CURRENT MEDICATIONS: Cephalexin Oral Tablet 500 MG(10/23/2022) Take 1 tablet three times a day for 7 day(s) Ciprofloxacin HCl Oral Tablet 500 MG(10/23/2022) Take 1 tablet twice a day for 7 day(s) diazePAM Oral Tablet 10 MG(02/19/2022) TAKE 1 TABLET 60 MIN BEFORE TEST Ofloxacin Ophthalmic Solution 0.3 %(02/09/2022) PUT 1 DROP IN LEFT EYE 4 TIMES A DAY FLUoxetine HCl Oral Capsule 40 MG(01/26/2022) Enalapril Maleate Oral Tablet 10 MG(01/26/2022) TAKE 1 TABLET BY MOUTH EVERY DAY Atorvastatin Calcium Oral Tablet 40 MG(04/16/2022) TAKE 1 TABLET BY MOUTH EVERYDAY AT BEDTIME Erythromycin Ophthalmic Ointment 5 MG/GM(02/09/2022) APPLY 1 A SMALL AMOUNT LEFT EYE 4 TIMES A DAY Atorvastatin Calcium Oral Tablet 20 MG(01/26/2022) TAKE 1 TABLET BY MOUTH EVERY DAY Jardiance Oral Tablet 25 MG(03/23/2022) Spironolactone Oral Tablet 25 MG(04/17/2022) Furosemide Oral Tablet 40 MG(03/05/2022) TAKE 1 TABLET BY MOUTH EVERY DAY HumuLIN R U-500 KwikPen Subcutaneous Solution Pen-injector 500 UNIT/ML(09/29/2021) INJECT 90 UNITS SUBCUTANEOUSLY AT BREAKFAST TIME, 40 UNTIS AT LUNCH, AND 90 UNITS AT SUPPER metFORMIN HCl Oral Tablet 1000 MG(04/22/2022) ALLERGIES: Band-Aid [place] Surg Dressing Other Bandaging Tape Other PAST MEDICAL HISTORY: Podiatry History remarkable for Foot Numbness, Fungal Nails, Leg or Foot Ulcers. The patient has a past medical history of Arthritis, Depression, DM-Medication Dependent, Poor Circulation. Neuropathy High Cholesterol SURGICAL HISTORY: Hand Tonsils HOSPITALIZATIONS: None Noted SOCIAL HISTORY: Smoking Status: Never smoker; Last Reviewed: 11/02/2022 Alcohol use: social drinker No drug use Social History Reviewed (01/16/2021 11:20:18 AM EST) FAMILY HISTORY: There is a family history of Denial of any knowledge of significant family history. Denial of any knowledge of significant family history Family History Reviewed (01/16/2021 11:20:19 AM EST) REVIEW OF SYSTEMS: Psychologic: Admits to No psych symptoms. Review of systems otherwise negative PHYSICAL EXAMINATION: Vital Signs: Weight 235 lbs; Height 5 ft 8 in; BMI 35.7 01/07/2023 12:33 PM (EST) Temperature 98.6 F; Pulse Rate 100 bpm; Blood Pressure 120 / 80 mm/Hg Vascular Exam: BL Foot DP / PT pulses +2/4 CFT less than 3 seconds to digits, skin temp warm to warm from proximal to distal BL Foot Dermatologic Exam: RIGHT 2nd amputation site wound predebridement measures 3.5x0.3x0.2cm and post debridement measures 3.7x0.4x0.4cm with 85:15 granular fibrotic base, surrounding slough, no surrounding maceration, no erythema, no purulence, no probe to bone, no malodor, moderate serosanguinous drainage. Into level of SUBCUTANEOUS tissue. RIGHT lateral hallux wound predebridement covered by slough and post debridement measures 0.1x0.1x0.1cm with granular base, surrounding slough, no erythema, no purulence, no probe to bone, no malodor, mild serosanguinous drainage. Into SUBCUTANEOUS tissue RIGHT 3rd toe tuft wound remains healed Nails 1-5 left and 3-5 RT Bilateral are thickened, elongated and discolored with subungual debris. The nails are greater than .3mm in thickness. The discoloration is yellowish in color. Innerspaces 1-4bl are clean dry and intact. Skin texture and turgor are decreased. absent or decreased hair growth bilateral. nail changes bilateral Neurologic Exam: Comments/Other Findings: Vibratory sensations decreased BL at the MPJ, Protective sensations absent BL tested with 5.07 monofilament, and light, sharp, and temperature sensations intact bl. Muscle Testing of the Extensors, Flexors, Evertors (peroneals), and Invertors (posterior tibialis) BL leg shows 5/5 testing noted. Normal Babinski test noted bl foot after testing Orthopedic Exam: Additional Orthopedic Findings: RT partial great toe and 2nd toe amp noted DIAGNOSIS: Ulcer of right foot with fat layer exposed Right foot pain Pain of toe of right foot Type II diabetes mellitus with neurological manifestations Lymphedema of both lower extremities PVD (peripheral vascular disease) History of amputation of right great toe Amputated toe of right foot Displaced fracture of distal phalanx of left lesser toe(s), subsequent encounter for fracture with routine healing Skin ulcer of right foot including toes with fat layer exposed Non-pressure chronic ulcer of other part of right foot with necrosis of bone Skin ulcer of right foot including toes, limited to breakdown of skin PLAN AND TREATMENT: ASSESMENT & PLAN BL Foot and Ankle and Lower extremity Exam and Evaluation carried out with a treatment plan reviewed with the patient and findings discussed with patient including alternatives, benefits, complications and risks PREVIOUS TESTS / IMAGING / X-RAY EXAM 11/10/22 right foot XR: there is partial great toe noted with no sign of infection. second toe MPJ amp with met head resection noted. 12/22/21 PVR RESULTS: RIGHT SIDE Resting right ankle brachial index: 1.37Right toe brachial index: 0.70Normal ankle brachial index at rest in the right leg. Normal toe brachial index at rest in the right leg. Right ankle: Normal at rest. LEFT SIDE Resting left ankle brachial index: 1.33Left toe brachial index: 0.83Normal ankle brachial index at rest in the left leg. Normal toe brachial index at rest in the left leg. Left ankle: Normal at rest. 11/26/22 CULTURE: Streptococcus mitis-oralis, Staphylococcus epidermidis 11/23/22 left foot XR [facility]: Previous amputation of the second toe and the head of the second metatarsal. Remote healed fracture of the neck of the fifth metatarsal. Previous amputation of the distal phalanx of the great toe. Prominent plantar calcaneal spur. No definite bony destructive change is seen. No soft tissue gas or foreign body. RIGHT 2nd toe amp wound improved. RIGHT lateral hallux ulcer improved. RIGHT 2nd toe amputation site ulcer and RIGHT lateral hallux Excisional debridement carried out of the wound with non selective sharp excisional debridement past the dermis into SUBQ level with use of curette and 15 scalpel bladed debriding non viable tissue out of wound. We then flushed out the wound with wound and put dressing on. Discussed importance in offloading, proper nutrition including blood sugar control and getting enough protein and vitamins, infection prevention, proper wound care in wound healing. Also discussed detrimental impact of smoking on healing. Reviewed proper wound care with patient. Dressing was applied today. To watch for signs of infection both local and systemic. These were reviewed with the patient. If seen to contact office or go to ED. To continue wound care consisting of washing the wound with soap and water or vashe solution. Then to apply dressing consisting of silver alginate and incorporate into graft dressing to hallux. To 2nd amputation site ulcer apply graft. Held snap vac while doing graft. A procedural pause was conducted immediately prior to starting the wound debridement to verify correct patient identity using two patient identifiers: the correct site and correct procedure. Permission from the patient to perform the procedure was obtained. We prepared the site for the graft application with remove the devitalized tissue and then doing cross hatching and preparing base with to promote a healthy, active wound edge to support healing. The wound base was 100% granular after prepping. Hemostasis was achieved with direct pressure. The wound was then copiously irrigated with saline. Patient tolerated this well without complications. FIRST application of APLIFGRAF skin graft to RIGHT 2nd toe amputation site wound dehiscence. After site was cleaned and prepped skin graft was applied to the area. This was secured with adaptic touch and steri strips. Site was covered alginate, gauze, and gauze roll. This is to clean, dry and intact until next appointment. Outer dressing above the steri strips can be changed for saturation every 2-3 days or PRN She knows she is at risk for further amputation such as TMA and for admission to hospital with infection. Discussed need to keep wounds dry, maceration noted but improving she finished clindamycin cont HBO Follow up at [facility] for ulcer check 1 week for wound check and graft Ulcer of right foot with fat layer exposed 707.15 L97.512 & Right foot pain 729.5 M79.671 & Pain of toe of right foot 729.5 M79.674 & Type II diabetes mellitus with neurological manifestations 250.60 E11.49 & Lymphedema of both lower extremities 457.1 I89.0 & PVD (peripheral vascular disease) 443.9 I73.9 & History of amputation of right great toe V49.71 Z89.411 & Amputated toe of right foot 895.0 S98.131A & Displaced fracture of distal phalanx of left lesser toe(s), subsequent encounter for fracture with routine healing V54.19 S92.532D & Skin ulcer of right foot including toes with fat layer exposed 707.15 L97.512 & Non-pressure chronic ulcer of other part of right foot with necrosis of bone 707.15 L97.514 & Skin ulcer of right foot including toes, limited to breakdown of skin 707.15 L97.511 documented in this encounter [facility] 01-07-2023 Instructions Amena Leonard RN - 01/07/2023 8:17 AM EDT WOUND CARE INSTRUCTIONS- Shade Brambila Wound location: Right 2nd toe amp site and Right Great toe - Apligraf skin graft applied this visit. Leave graft dressing clean, dry, and intact. If outer dressing needs changed okay to remove outer dressing only (change calcium alginate, gauze, and conform, and tape only) leaving steri-strips down to wound bed intact. - Moisturize Both Legs Daily avoiding graft dressing to Right Foot. - Apply single layer tubi-exterminator termite to bilateral lower legs and then wrap circaids overtop left lower leg Compression must be removed if: it becomes wet or soiled If you have numbness or tingling in your foot or toes If you have increased pain If toes become cold or discolored - Avoid sitting with legs in a dependent position or standing for long periods of time. - Attempt to lay flat and elevate your legs above the level of your heart 2-3 times daily, for 30 minutes at a time. - Be sure to continue walking and/or calf pumps and exercises to mimic writing the alphabet with your foot, as instructed - Control your sodium intake as instructed by provider To give your wound the best chance to heal: - Eat three balanced meals daily focusing on the protein - Control your blood sugar. Keep blood sugar less than 200 - Complete your wound care instructions as ordered - Vitamin C 500 mg twice daily - Multiple Vitamin Daily - Drink a protein shake daily - Premiere Clear or Glucerna for Diabetic patients, Nepro for renal patients and premiere for non-renal and non-diabetic patients Report any of the following signs and symptoms of infection to the Wound Center at [phone] or go to the Emergency Department: Fever or chills Increased drainage Green or yellow drainage Foul odor Increased pain Hardness around the wound Redness, warmth or swelling of the surrounding tissue Color change to the wound Evenings / Weekends / Holidays If you call the wound center at the phone number provided above, please leave a detailed message that includes your full name, birthday, and phone number. We are seeing patients during the day, so we will return your call within a 24-48 hr period in the order your call was received. There is not an on-call provider assigned to the wound center. If you have an emergency that needs to be addressed, please go to an Urgent Care or Emergency Room. Thank you for your cooperation and understanding. PLAN/ORDERS: Return to the wound center to see Dr. Hu Pickard on the following dates: 01/14/23 @ 9a- plan for apligraf #2 Continue aggressive nutritional support to assist wound healing. Call [facility] for more supplies, can re-order every 30 days. Phone #: [phone] Continue with HOBT treatment. Follow up with your PCP regarding elevated blood pressure. Hu Pickard DPM /martha/rivka documented in this encounter [facility] 01-07-2023 Nurse Note Nursing Documentation Pertinent Medical History: DM2, HTN, venous insufficiency, & heart failure Wound Etiology according to patient: Wounds spontaneously opened up over last 2 months Patient arrived via: Ambulatory with cane with a friend Home Care Company/Nursing Facility: N/A Consent captured for debridement per Dr Cici KENNEY and linda until May 2023 Consent captured for debridement per Dr. Neeraj KENNEY and linda until May 2023 Consent captured for debridement per Dr. Alfredo Moore DPM and good until May 2023 Anticoagulant Therapy: N/A ACTIVE CARE PER PROVIDER: Giovanni HAM, Hu HAM, & Alfredo Moore DPM WOUND # 1 -22 previously closed WOUND # 24, 25 previously closed WOUND # 27 LOCATION: Right dorsal Foot - intact bulla on arrival - new 11/26/22 Blister dry, intact closed skin 12/03/22, closed 12/07/22 WOUND ASSESSMENT: Refer to Provider's Wound Assessment Note VASCULAR ASSESSMENT BY PROVIDER: See provider wound assessment note CHF History: Yes as of February 2022, Dr. Sadler in Cardiology EDEMA: Right Foot: trace Right Calf: 1+ Left Calf: N/A Left Foot N/A Other: N/A MEASUREMENTS: in cm Right Calf: 34.5 Right Ankle: 21.5 Left Calf: N/A Left Ankle: N/A Length: 43.0cm WOUND PHOTOGRAPHY: Yes x 1 DEBRIDEMENT PROCEDURE BY PROVIDER: Anesthetic Used: Insensate Other procedure: N/A Specimen collected: N/A WOUND TREATMENT PER MD ORDER: Wounds cleansed by mechanical debridement to allow provider to visualize wound base Application Dates: 01/07/2023 Apligraf 2. 3. 4. 5. Graft was prepared using 0.9% saline solution per medication reconciliation technician instructions. 0.9% saline solution Lot #: [id number] Expiration Date: 09-05-2025 Organogenesis - APLIGRAF: 44 cm2 - 50% used with 50% wasted - applied by Provider LOT #: [id number] EXP: 01-08-2023 PH: 6.8-7.3 WOUND # 23 - LOCATION: Right 2nd Toe AMP Site L: 3.7 cm x W: 0.4 cm x D: 0.4 cm DEBRIDEMENT by provider: SubQ Cleansed with: Vashe, saline rinse Applied to naya-wound skin: skin prep, mastisol Applied to wound bed: apligraf, adaptic touch steri-strips, calcium alginate Covered and secured with: folded 4x4, 1/2 ABD, conform, tape. Other: Vaseline to intact skin WOUND # 26 - LOCATION: Right Great Toe - Hallux Lateral- (new 11/10/22) L: 0.1 cm x W: 0.1 cm x D: 0.1 cm DEBRIDEMENT by provider: SubQ Cleansed with: Vashe, saline rinse Applied to naya-wound skin: skin prep, mastisol Applied to wound bed: adaptic touch steri-strips, calcium alginate Covered and secured with: folded 4x4, 1/2 ABD, conform, tape. Other: Vaseline to intact skin COMPRESSION: Single layer Tubi-Quality Assurance Tester size D to right lower leg, pt's own Circaid present on left lower leg SPECIAL NEEDS: Coordination of care N/A Emotional support N/A OR set-up N/A Yarn Examiner N/A Incontinence needs N/A DISCHARGED in stable condition to: Ambulatory to HBOT with cane PLAN/ORDERS: Return to the wound center to see Dr. Hu Pickard on the following dates: 01/14/23 @ 9a- plan for apligraf #2 Continue aggressive nutritional support to assist wound healing. Call [employer] for more supplies, can re-order every 30 days. Phone #: [phone] Continue with HOBT treatment. Follow up with your PCP regarding elevated blood pressure. EDUCATION: The patient/family was instructed how to cleanse the wound(s). Visual demonstration on how to apply the dressing with teach back method. Signs & symptoms of infection were reviewed: Increased redness, swelling, pain, green/yellow drainage, fever and/or chills would all need to be evaluated by a Physician. Patient received typed home-going wound care instructions and has expressed intent to comply. OTHER EDUCATION: Provider discussed follow up, new wound care, apligraf. Education performed regarding lymphedema/edema: Elevation of extremity above the heart for 30 minutes three times daily and as needed Exercise such as writing the ABC's with your toes in the air, walking and/or calf pumps Wearing compression as ordered by provider Diet controlling of sodium as instructed by provider Use of medication to help control edema. UNIVERSAL PROTOCOL / SAFETY CHECKLIST Procedure to be Performed: sharp wound debridement of Right Foot Sign In: 0840 A Moment of CARE was completed. Personnel directly involved with the procedure wore the appropriate PPE (Personal Protective Equipment). Patient/Surrogate Stated/Verified: PATIENT VERIFIED(optional for EMERGENT procedures): Patient name, Date of , Relevant allergies, and The intended procedure Time Out Communication:[id number] Intended patient and procedure match the source documents. Consent documented and matches the intended procedure. Sign Out: 0845 SIGN OUT (optional for EMERGENT procedures): All instruments, equipment, possible retained foreign bodies accounted for. Post-procedure follow-up management communicated and Plan of Care Visit completed when applicable. Current HBOT Status: Active or Complete - see screening below WOUND CENTER HYPERBARIC OXYGEN THERAPY SCREENING 1. Is the patient diabetic? (If No, skip to question 5) Yes 2. Does the patient have a lower extremity wound? Yes 3. Is there exposed/involved tendon or bone? 4. Has the wound been present for 30 days? Yes If Yes to ALL questions above, consult the Hyperbaric Center 5. Has the patient been diagnosed with osteomyelitis? No 6. Has the patient had a previous skin graft or flap at the wound? No 7. Has the patient had or been offered vascular intervention/evaluation? No 8. Does the patient have a wound at an amputation site? Yes 9. Has the patient had radiation therapy at the site of the problem? No If Yes to ANY of questions 5-9, consult the Hyperbaric Center Active in HBO. documented in this encounter [facility] 01-05-2023 History of Presen t illness Narrative Images from the original note were not included. Problem list reviewed. CHIEF COMPLAINT: check RT amputation site, lateral RT hallux SP Amputation of RT second toe, ID 10/28/2022 DM II A1c 10.3 DLS 10/12/2022 HISTORY OF PRESENT ILLNESS: Here today for POV RT second toe amputation and ID great toe and closure of wound RT lateral great toe. She finished clindamycin and had snap vac reapplied. Last seen by my colleague Dr Pickard. She had no new issues over weekend. Have yet to hear about grafts. She started HBO. She saw her area field manager who said she has some sleep apnea and said she was good to do HBO. She has to get a nuclear stress test soon. Referred by Dr. Dasilva. 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 PCN allergy HX partial amputation RT great toe 07/08/2022 and LEFT great toe wound rx circade wraps 08/14/22 CURRENT MEDICATIONS: Cephalexin Oral Tablet 500 MG(10/23/2022) Take 1 tablet three times a day for 7 day(s) Ciprofloxacin HCl Oral Tablet 500 MG(10/23/2022) Take 1 tablet twice a day for 7 day(s) diazePAM Oral Tablet 10 MG(02/19/2022) TAKE 1 TABLET 60 MIN BEFORE TEST Ofloxacin Ophthalmic Solution 0.3 %(02/09/2022) PUT 1 DROP IN LEFT EYE 4 TIMES A DAY FLUoxetine HCl Oral Capsule 40 MG(01/26/2022) Enalapril Maleate Oral Tablet 10 MG(01/26/2022) TAKE 1 TABLET BY MOUTH EVERY DAY Atorvastatin Calcium Oral Tablet 40 MG(04/16/2022) TAKE 1 TABLET BY MOUTH EVERYDAY AT BEDTIME Erythromycin Ophthalmic Ointment 5 MG/GM(02/09/2022) APPLY 1 A SMALL AMOUNT LEFT EYE 4 TIMES A DAY Atorvastatin Calcium Oral Tablet 20 MG(01/26/2022) TAKE 1 TABLET BY MOUTH EVERY DAY Jardiance Oral Tablet 25 MG(03/23/2022) Spironolactone Oral Tablet 25 MG(04/17/2022) Furosemide Oral Tablet 40 MG(03/05/2022) TAKE 1 TABLET BY MOUTH EVERY DAY HumuLIN R U-500 KwikPen Subcutaneous Solution Pen-injector 500 UNIT/ML(09/29/2021) INJECT 90 UNITS SUBCUTANEOUSLY AT BREAKFAST TIME, 40 UNTIS AT LUNCH, AND 90 UNITS AT SUPPER metFORMIN HCl Oral Tablet 1000 MG(04/22/2022) ALLERGIES: Band-Aid [place] Surg Dressing Other Bandaging Tape Other PAST MEDICAL HISTORY: Podiatry History remarkable for Foot Numbness, Fungal Nails, Leg or Foot Ulcers. The patient has a past medical history of Arthritis, Depression, DM-Medication Dependent, Poor Circulation. Neuropathy High Cholesterol SURGICAL HISTORY: Hand Tonsils HOSPITALIZATIONS: None Noted SOCIAL HISTORY: Smoking Status: Never smoker; Last Reviewed: 11/02/2022 Alcohol use: social drinker No drug use Social History Reviewed (01/16/2021 11:20:18 AM EST) FAMILY HISTORY: There is a family history of Denial of any knowledge of significant family history. Denial of any knowledge of significant family history Family History Reviewed (01/16/2021 11:20:19 AM EST) REVIEW OF SYSTEMS: Psychologic: Admits to No psych symptoms. Review of systems otherwise negative PHYSICAL EXAMINATION: Vital Signs: Weight 235 lbs; Height 5 ft 8 in; BMI 35.7 12/31/2022 2:22 PM (EST) Temperature 98.6 F; Pulse Rate 100 bpm; Blood Pressure 120 / 80 mm/Hg Vascular Exam: BL Foot DP / PT pulses +2/4 CFT less than 3 seconds to digits, skin temp warm to warm from proximal to distal BL Foot Dermatologic Exam: RIGHT 2nd amputation site wound predebridement measures 3.3x0.4x0.3cm and post debridement measures 3.7x0.7x0.4cm with 50:50 granular fibrotic base, surrounding slough, MILD surrounding maceration, no erythema, no purulence, probe to bone, no malodor, moderate serosanguinous drainage. Into level of SUBCUTANEOUS tissue. RIGHT lateral hallux wound predebridement measures 0.1x0.1x0.1cm and post debridement measures 0.1x0.1x0.2cm with 75:25 granular fibrotic base, surrounding slough, no erythema, no purulence, no probe to bone, no malodor, mild serosanguinous drainage. Into SUBCUTANEOUS tissue RIGHT 3rd toe tuft wound remains healed Nails 1-5 left and 3-5 RT Bilateral are thickened, elongated and discolored with subungual debris. The nails are greater than .3mm in thickness. The discoloration is yellowish in color. Innerspaces 1-4bl are clean dry and intact. Skin texture and turgor are decreased. absent or decreased hair growth bilateral. nail changes bilateral Neurologic Exam: Comments/Other Findings: Vibratory sensations decreased BL at the MPJ, Protective sensations absent BL tested with 5.07 monofilament, and light, sharp, and temperature sensations intact bl. Muscle Testing of the Extensors, Flexors, Evertors (peroneals), and Invertors (posterior tibialis) BL leg shows 5/5 testing noted. Normal Babinski test noted bl foot after testing Orthopedic Exam: Additional Orthopedic Findings: RT partial great toe and 2nd toe amp noted DIAGNOSIS: Ulcer of right foot with fat layer exposed Right foot pain Pain of toe of right foot Type II diabetes mellitus with neurological manifestations Lymphedema of both lower extremities PVD (peripheral vascular disease) History of amputation of right great toe Amputated toe of right foot Displaced fracture of distal phalanx of left lesser toe(s), subsequent encounter for fracture with routine healing Skin ulcer of right foot including toes with fat layer exposed Non-pressure chronic ulcer of other part of right foot with necrosis of bone Skin ulcer of right foot including toes, limited to breakdown of skin PLAN AND TREATMENT: ASSESMENT & PLAN BL Foot and Ankle and Lower extremity Exam and Evaluation carried out with a treatment plan reviewed with the patient and findings discussed with patient including alternatives, benefits, complications and risks PREVIOUS TESTS / IMAGING / X-RAY EXAM 11/10/22 right foot XR: there is partial great toe noted with no sign of infection. second toe MPJ amp with met head resection noted. 12/22/21 PVR RESULTS: RIGHT SIDE Resting right ankle brachial index: 1.37Right toe brachial index: 0.70Normal ankle brachial index at rest in the right leg. Normal toe brachial index at rest in the right leg. Right ankle: Normal at rest. LEFT SIDE Resting left ankle brachial index: 1.33Left toe brachial index: 0.83Normal ankle brachial index at rest in the left leg. Normal toe brachial index at rest in the left leg. Left ankle: Normal at rest. 11/26/22 CULTURE: Streptococcus mitis-oralis, Staphylococcus epidermidis 11/23/22 left foot XR [facility]: Previous amputation of the second toe and the head of the second metatarsal. Remote healed fracture of the neck of the fifth metatarsal. Previous amputation of the distal phalanx of the great toe. Prominent plantar calcaneal spur. No definite bony destructive change is seen. No soft tissue gas or foreign body. RIGHT 2nd toe amp wound improved. RIGHT lateral hallux ulcer improved. RIGHT 2nd toe amputation site ulcer and RIGHT lateral hallux Excisional debridement carried out of the wound with non selective sharp excisional debridement past the dermis into SUBQ level with use of curette and 15 scalpel bladed debriding non viable tissue out of wound. We then flushed out the wound with wound and put dressing on. Discussed importance in offloading, proper nutrition including blood sugar control and getting enough protein and vitamins, infection prevention, proper wound care in wound healing. Also discussed detrimental impact of smoking on healing. Reviewed proper wound care with patient. Dressing was applied today. To watch for signs of infection both local and systemic. These were reviewed with the patient. If seen to contact office or go to ED. To continue wound care consisting of washing the wound with soap and water or vashe solution. Then to apply dressing consisting of silver alginate and allevyn to hallux. To 2nd amputation site ulcer apply gentian rimma periwound and snap vac TODAY applied snap vac to RIGHT SECOND TOE AMPUTATION SITE ULCER and will plan twice a week dressing changes with this. Next plan if there is too much drainage is to order standard wound vac to help fill this void, as well as continue compression. JOSE A applied to wound base Discussed if snap vac fails or if seal breaks or if there is too much drainage patient is to take it down and to continue wound care consisting of washing the wound daily with soap and water. Then to apply dressing consisting of 1/4 iodoform packing, silver alginate, DSD and tubigrip compression She knows she is at risk for further amputation such as TMA and for admission to hospital with infection. Discussed need to keep wounds dry, maceration noted but improving she finished clindamycin cont HBO Awaiting insurance response to grafting no signs infection today, wound appears much better and snap vac functioned well Follow up at [facility] for ulcer check Wed and for snap vac changes and possible grafting Ulcer of right foot with fat layer exposed 707.15 L97.512 & Right foot pain 729.5 M79.671 & Pain of toe of right foot 729.5 M79.674 & Type II diabetes mellitus with neurological manifestations 250.60 E11.49 & Lymphedema of both lower extremities 457.1 I89.0 & PVD (peripheral vascular disease) 443.9 I73.9 & History of amputation of right great toe V49.71 Z89.411 & Amputated toe of right foot 895.0 S98.131A & Displaced fracture of distal phalanx of left lesser toe(s), subsequent encounter for fracture with routine healing V54.19 S92.532D & Skin ulcer of right foot including toes with fat layer exposed 707.15 L97.512 & Non-pressure chronic ulcer of other part of right foot with necrosis of bone 707.15 L97.514 & Skin ulcer of right foot including toes, limited to breakdown of skin 707.15 L97.511 documented in this encounter [facility] 01-05-2023 History of Presen t illness Narrative RADIOLOGY SERVICE PROGRESS NOTE SERVICE DATE: 01/05/2023 SERVICE TIME: 8:47 AM PATIENT IDENTITY VERIFICATION COMPLETED USING TWO (2) STANDARD IDENTIFIERS: Name and Date of confirmed by patient verbally and Name and Date of confirmed by identification band FALL SCREENING: Has the patient had 2 falls in the last year or 1 fall with injury or currently using an Ambulatory Assistive Device (Walker, Cane, Wheelchair, Crutches, etc.)? Yes, Patient High Risk for Falls What interventions were put in place to prevent falls during this visit? Instructed Patient to Call for Help if Needed and Increased Observations by Caregivers PATIENT GENDER DATA: .female : No ALLERGIES: Reviewed and unchanged MEDICATIONS REVIEWED: Not applicable PATIENT RELEVANT IMPLANT DATA REVIEWED: Not Applicable CREATININE: Creatinine Date Value Ref Range Status 08/21/2022 0.71 0.58 - 0.96 mg/dL Final 07/15/2022 0.79 0.58 - 0.96 mg/dL Final 05/04/2022 0.97 (H) 0.58 - 0.96 mg/dL Final Estimated Glomerular Filtration Rate Date Value Ref Range Status 08/21/2022 96 >=60 mL/min/1.73m Final Comment: Estimated Glomerular Filtration Rate (eGFR) is calculated using the 2020 CKD-EPI creatinine equation. This equation utilizes serum creatinine, sex, and age as parameters. The creatinine assay has traceable calibration to isotope dilution-mass spectrometry. Refer to KDIGO guidelines for clinical interpretation. In patients with unstable renal function, e.g. those with acute kidney injury, the eGFR may not accurately reflect actual GFR. eGFR- Date Value Ref Range Status 02/04/2021 >60 Final P.O.C.T. RESULTS: N/A January 05, [address] PERFORMED: No IV SITE: Ambulatory: A peripheral IV was started in the Right forearm with a Angio cath: 22 gauge. POST EXAM PIV STATUS: Discontinued PROCEDURE TYPE: ME Stress: 12.4 mCi [id number] was administered IV for Rest Imaging at 07:29 by . 31.6 mCi [id number] was administered IV for Stress Imaging at 08:30 by . PATIENT DISCHARGED TO: Ambulatory patient, left ME department area. A Diagnostic radioactive procedure has taken place, with no further precautions necessary other than routine body substance precautions. More information regarding radiation safety can be found using this link: [email or web address] SIGNATURE: AMANDA Velazquez PATIENT NAME: Shade Brambila DATE: January 05, 2023 TIME: 8:47 AM PAGER/CONTACT #: documented in this encounter [facility] 01-04-2023 Miscellaneous Notes Left message regarding reminder for stress test tomorrow and given instructions. documented in this encounter [facility] 01-04-2023 Instructions Bonnie Molina RN - 01/04/2023 8:53 AM EDT WOUND CARE INSTRUCTIONS- Shade Brambila Wound location: Right 2nd toe amp site SnapVac to stay in place until your next Wound Center appointment. Please keep the dressing clean and dry. SNAP VAC was applied at today's visit. If the sosa on the SNAP VAC pops out and you are unable to depress the sosa to achieve a good seal or you see a red line on the canister, then please remove the entire dressing and perform the alternate dressing as detailed below. SNAP VAC to be changed twice a week at the Wound Center. Alternate Wound dressings: - Gather supplies - Place down a clean work surface such as new paper towel or newly cleaned towel. - Clean all metal instruments with rubbing alcohol before and after each use. - Plastic garbage bag for old dressing - Wash your hands with soap and water before and after wound care. - Moisten a clean 4x4 gauze with several drops of Vashe solution and apply to all wounds. Let soak for 5-10 minutes and pat dry with clean gauze. Right 2nd toe amputation site - alternate dressing - Gently pack the amputation site with 1/4 inch iodoform ribbon packing to the base of the wound and leave a 1/2 inch tail out of the wound for ease of removal - Apply a piece of silver alginate (felt-like material) over the packing - Cover with dry gauze and secure with roll gauze and tape - Change the dressing daily or as needed to maintain a clean, dry and intact dressing Apply single layer tubi-exterminator termite to bilateral lower legs and then wrap circaids overtop left lower leg Compression wrap must be removed if: it becomes wet or soiled If you have numbness or tingling in your foot or toes If you have increased pain If toes become cold or discolored - Avoid sitting with legs in a dependent position or standing for long periods of time. - Attempt to lay flat and elevate your legs above the level of your heart 2-3 times daily, for 30 minutes at a time. - Be sure to continue walking and/or calf pumps and exercises to mimic writing the alphabet with your foot, as instructed - Control your sodium intake as instructed by provider - Moisturize legs daily and wear circaid wrap on left leg. Put Circaid wrap on in the morning and okay to remove at bedtime, leaving tubi-tobacco wetter size D in place on your right leg. To give your wound the best chance to heal: - Eat three balanced meals daily focusing on the protein - Control your blood sugar. Keep blood sugar less than 200 - Complete your wound care instructions as ordered - Vitamin C 500 mg twice daily - Multiple Vitamin Daily - Drink a protein shake daily - Premiere Clear or Glucerna for Diabetic patients, Nepro for renal patients and premiere for non-renal and non-diabetic patients Report any of the following signs and symptoms of infection to the Wound Center at [phone] or go to the Emergency Department: Fever or chills Increased drainage Green or yellow drainage Foul odor Increased pain Hardness around the wound Redness, warmth or swelling of the surrounding tissue Color change to the wound Evenings / Weekends / Holidays If you call the wound center at the phone number provided above, please leave a detailed message that includes your full name, birthday, and phone number. We are seeing patients during the day, so we will return your call within a 24-48 hr period in the order your call was received. There is not an on-call provider assigned to the wound center. If you have an emergency that needs to be addressed, please go to an Urgent Care or Emergency Room. Thank you for your cooperation and understanding. PLAN/ORDERS: Return to the wound center to see Dr. Hu Pickard or Dr. Alfredo Moore on the following dates: 01/07/23 at 8:00 am Continue aggressive nutritional support to assist wound healing. Call [facility] for more supplies, can re-order every 30 days. Phone #: [phone] Continue with HOBT treatment. Follow up with your PCP regarding elevated blood pressure. Grafts pending approval - call out to check on status Alfredo Moore DPM/celina documented in this encounter [facility] 01-04-2023 Nurse Note Nursing Documentation Pertinent Medical History: DM2, HTN, venous insufficiency, & heart failure Wound Etiology according to patient: Wounds spontaneously opened up over last 2 months Patient arrived via: Ambulatory with cane with a friend Home Care Company/Nursing Facility: N/A Consent captured for debridement per Dr Cici KENNEY and linda until May 2023 Consent captured for debridement per Dr. Neeraj KENNEY and linda until May 2023 Consent captured for debridement per Dr. Alfredo Moore DPM and linda until May 2023 Anticoagulant Therapy: N/A ACTIVE CARE PER PROVIDER: Giovanni Bolanos DPM, Hu Pickard DPM, & Alfredo Moore DPM WOUND # 1 -22 previously closed WOUND # 24, 25 previously closed WOUND # 27 LOCATION: Right dorsal Foot - intact bulla on arrival - new 11/26/22 Blister dry, intact closed skin 12/03/22, closed 12/07/22 WOUND ASSESSMENT: Refer to Provider's Wound Assessment Note VASCULAR ASSESSMENT BY PROVIDER: See provider wound assessment note CHF History: Yes as of February 2022, Dr. Sadler in Cardiology EDEMA: Right Foot: 1+ Right Calf: 1+ Left Calf: 3+ -not assessed this visit Left Foot 2+-not assessed thisvisit Other: N/A MEASUREMENTS: in cm Right Calf: 34.5 Right Ankle: 21.8 Left Calf: 32.0 - not measured this visit. Pt wearing Circaid wrap Left Ankle: 23.4 - not measured this visit. Pt wearing Circaid wrap Length: 43.0cm WOUND PHOTOGRAPHY: Yes x 2 DEBRIDEMENT PROCEDURE BY PROVIDER: Anesthetic Used: Insensate Other procedure: N/A Specimen collected: N/A WOUND TREATMENT PER MD ORDER: Wounds cleansed by mechanical debridement to allow provider to visualize wound base WOUND # 23 - LOCATION: Right 2nd Toe AMP Site seeking graft approval 12/17/22 by Bonnie L: 3.7 cm x W: 0.7 cm x D: 0.3 cm DEBRIDEMENT by provider: SubQ Cleansed with: Dial soap and water, Vashe' Applied to naya-wound skin: Gentian Rimma, Duoderm, & Saul Seal Applied to wound bed: Jose A & Snap Vac Covered and secured with: ABD pad, conform, & tape Other: Vaseline to intact skin WOUND # 26 - LOCATION: Right Great Toe - Hallux Lateral- (new 11/10/22) L: 0.1 cm x W: 0.1 cm x D: 0.1 cm DEBRIDEMENT by provider: SubQ Cleansed with: Dial soap and water, Vashe' Applied to naya-wound skin: Gentian Rimma, Duoderm Applied to wound bed: Jose A & Snap Vac Covered and secured with: ABD pad, conform, & tape Other: Vaseline to intact skin COMPRESSION: Single layer Tubi-Quality Assurance Tester size D to right lower leg, pt's own Circaid present on left lower leg SPECIAL NEEDS: Coordination of care HBOT - Dr. Benitez in to evaluate patient Emotional support N/A OR set-up N/A Yarn Examiner N/A Incontinence needs N/A DISCHARGED in stable condition to: Ambulatory to HBOT with cane PLAN/ORDERS: Return to the wound center to see Dr. Hu Pickard or Dr. Alfredo Moore on the following dates: 01/07/23 at 8:00 am Continue aggressive nutritional support to assist wound healing. Call [facility] for more supplies, can re-order every 30 days. Phone #: [phone] Continue with HOBT treatment. Follow up with your PCP regarding elevated blood pressure. Grafts pending approval - call out to check on status EDUCATION: The patient/family was instructed how to cleanse the wound(s). Visual demonstration on how to apply the dressing with teach back method. Signs & symptoms of infection were reviewed: Increased redness, swelling, pain, green/yellow drainage, fever and/or chills would all need to be evaluated by a Physician. Patient received typed home-going wound care instructions and has expressed intent to comply. OTHER EDUCATION: Education performed regarding lymphedema/edema: Elevation of extremity above the heart for 30 minutes three times daily and as needed Exercise such as writing the ABC's with your toes in the air, walking and/or calf pumps Wearing compression as ordered by provider Diet controlling of sodium as instructed by provider Use of medication to help control edema. UNIVERSAL PROTOCOL / SAFETY CHECKLIST Procedure to be Performed: sharp wound debridement of Right Foot Sign In: 0900 A Moment of CARE was completed. Personnel directly involved with the procedure wore the appropriate PPE (Personal Protective Equipment). Patient/Surrogate Stated/Verified: PATIENT VERIFIED(optional for EMERGENT procedures): Patient name, Date of , Relevant allergies, and The intended procedure Time Out Communication:09 Intended patient and procedure match the source documents. Consent documented and matches the intended procedure. Sign Out: 0910 SIGN OUT (optional for EMERGENT procedures): All instruments, equipment, possible retained foreign bodies accounted for. Post-procedure follow-up management communicated and Plan of Care Visit completed when applicable. Current HBOT Status: Active or Complete - see screening below WOUND CENTER HYPERBARIC OXYGEN THERAPY SCREENING 1. Is the patient diabetic? (If No, skip to question 5) Yes 2. Does the patient have a lower extremity wound? Yes 3. Is there exposed/involved tendon or bone? 4. Has the wound been present for 30 days? Yes If Yes to ALL questions above, consult the Hyperbaric Center 5. Has the patient been diagnosed with osteomyelitis? No 6. Has the patient had a previous skin graft or flap at the wound? No 7. Has the patient had or been offered vascular intervention/evaluation? No 8. Does the patient have a wound at an amputation site? Yes 9. Has the patient had radiation therapy at the site of the problem? No If Yes to ANY of questions 5-9, consult the Hyperbaric Center Active in HBO, Dr Benitez in to see pt and take photos. documented in this encounter [facility] 01-01-2023 History of Presen t illness Narrative Images from the original note were not included. Problem list reviewed. CHIEF COMPLAINT: check RT amputation site, lateral RT hallux SP Amputation of RT second toe, ID 10/28/2022 DM II A1c 10.3 DLS 10/12/2022 HISTORY OF PRESENT ILLNESS: Here today for POV RT second toe amputation and ID great toe and closure of wound RT lateral great toe. She finished clindamycin and had snap vac reapplied. Last seen by my colleague Dr Moore. Have yet to hear about grafts. She started HBO. She saw her area field manager who said she has some sleep apnea and said she was good to do HBO. She has to get a nuclear stress test soon. Referred by Dr. Dasilva. 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 PCN allergy HX partial amputation RT great toe 07/08/2022 and LEFT great toe wound rx circade wraps 08/14/22 CURRENT MEDICATIONS: Cephalexin Oral Tablet 500 MG(10/23/2022) Take 1 tablet three times a day for 7 day(s) Ciprofloxacin HCl Oral Tablet 500 MG(10/23/2022) Take 1 tablet twice a day for 7 day(s) diazePAM Oral Tablet 10 MG(02/19/2022) TAKE 1 TABLET 60 MIN BEFORE TEST Ofloxacin Ophthalmic Solution 0.3 %(02/09/2022) PUT 1 DROP IN LEFT EYE 4 TIMES A DAY FLUoxetine HCl Oral Capsule 40 MG(01/26/2022) Enalapril Maleate Oral Tablet 10 MG(01/26/2022) TAKE 1 TABLET BY MOUTH EVERY DAY Atorvastatin Calcium Oral Tablet 40 MG(04/16/2022) TAKE 1 TABLET BY MOUTH EVERYDAY AT BEDTIME Erythromycin Ophthalmic Ointment 5 MG/GM(02/09/2022) APPLY 1 A SMALL AMOUNT LEFT EYE 4 TIMES A DAY Atorvastatin Calcium Oral Tablet 20 MG(01/26/2022) TAKE 1 TABLET BY MOUTH EVERY DAY Jardiance Oral Tablet 25 MG(03/23/2022) Spironolactone Oral Tablet 25 MG(04/17/2022) Furosemide Oral Tablet 40 MG(03/05/2022) TAKE 1 TABLET BY MOUTH EVERY DAY HumuLIN R U-500 KwikPen Subcutaneous Solution Pen-injector 500 UNIT/ML(09/29/2021) INJECT 90 UNITS SUBCUTANEOUSLY AT BREAKFAST TIME, 40 UNTIS AT LUNCH, AND 90 UNITS AT SUPPER metFORMIN HCl Oral Tablet 1000 MG(04/22/2022) ALLERGIES: Band-Aid [place] Surg Dressing Other Bandaging Tape Other PAST MEDICAL HISTORY: Podiatry History remarkable for Foot Numbness, Fungal Nails, Leg or Foot Ulcers. The patient has a past medical history of Arthritis, Depression, DM-Medication Dependent, Poor Circulation. Neuropathy High Cholesterol SURGICAL HISTORY: Hand Tonsils HOSPITALIZATIONS: None Noted SOCIAL HISTORY: Smoking Status: Never smoker; Last Reviewed: 11/02/2022 Alcohol use: social drinker No drug use Social History Reviewed (01/16/2021 11:20:18 AM EST) FAMILY HISTORY: There is a family history of Denial of any knowledge of significant family history. Denial of any knowledge of significant family history Family History Reviewed (01/16/2021 11:20:19 AM EST) REVIEW OF SYSTEMS: Psychologic: Admits to No psych symptoms. Review of systems otherwise negative PHYSICAL EXAMINATION: Vital Signs: Weight 235 lbs; Height 5 ft 8 in; BMI 35.7 12/28/2022 3:45 PM (EST) Temperature 98.6 F; Pulse Rate 100 bpm; Blood Pressure 120 / 80 mm/Hg Vascular Exam: BL Foot DP / PT pulses +2/4 CFT less than 3 seconds to digits, skin temp warm to warm from proximal to distal BL Foot Dermatologic Exam: RIGHT 2nd amputation site wound predebridement measures 3.3x0.4x0.3cm and post debridement measures 3.5x0.6x0.5cm with 50:50 granular fibrotic base, surrounding slough, MILD surrounding maceration, no erythema, no purulence, probe to bone, no malodor, moderate serosanguinous drainage. Into level of SUBCUTANEOUS tissue. RIGHT lateral hallux wound predebridement measures 0.1x0.1x0.1cm and post debridement measures 0.2x0.2x0.1cm with 75:25 granular fibrotic base, surrounding slough, no erythema, no purulence, no probe to bone, no malodor, mild serosanguinous drainage. Into SUBCUTANEOUS tissue RIGHT 3rd toe tuft wound remains healed Nails 1-5 left and 3-5 RT Bilateral are thickened, elongated and discolored with subungual debris. The nails are greater than .3mm in thickness. The discoloration is yellowish in color. Innerspaces 1-4bl are clean dry and intact. Skin texture and turgor are decreased. absent or decreased hair growth bilateral. nail changes bilateral Neurologic Exam: Comments/Other Findings: Vibratory sensations decreased BL at the MPJ, Protective sensations absent BL tested with 5.07 monofilament, and light, sharp, and temperature sensations intact bl. Muscle Testing of the Extensors, Flexors, Evertors (peroneals), and Invertors (posterior tibialis) BL leg shows 5/5 testing noted. Normal Babinski test noted bl foot after testing Orthopedic Exam: Additional Orthopedic Findings: RT partial great toe and 2nd toe amp noted DIAGNOSIS: Ulcer of right foot with fat layer exposed Right foot pain Pain of toe of right foot Type II diabetes mellitus with neurological manifestations Lymphedema of both lower extremities PVD (peripheral vascular disease) History of amputation of right great toe Amputated toe of right foot Displaced fracture of distal phalanx of left lesser toe(s), subsequent encounter for fracture with routine healing Skin ulcer of right foot including toes with fat layer exposed Non-pressure chronic ulcer of other part of right foot with necrosis of bone Skin ulcer of right foot including toes, limited to breakdown of skin PLAN AND TREATMENT: ASSESMENT & PLAN BL Foot and Ankle and Lower extremity Exam and Evaluation carried out with a treatment plan reviewed with the patient and findings discussed with patient including alternatives, benefits, complications and risks PREVIOUS TESTS / IMAGING / X-RAY EXAM 11/10/22 right foot XR: there is partial great toe noted with no sign of infection. second toe MPJ amp with met head resection noted. 12/22/21 PVR RESULTS: RIGHT SIDE Resting right ankle brachial index: 1.37Right toe brachial index: 0.70Normal ankle brachial index at rest in the right leg. Normal toe brachial index at rest in the right leg. Right ankle: Normal at rest. LEFT SIDE Resting left ankle brachial index: 1.33Left toe brachial index: 0.83Normal ankle brachial index at rest in the left leg. Normal toe brachial index at rest in the left leg. Left ankle: Normal at rest. 11/26/22 CULTURE: Streptococcus mitis-oralis, Staphylococcus epidermidis 11/23/22 left foot XR [facility]: Previous amputation of the second toe and the head of the second metatarsal. Remote healed fracture of the neck of the fifth metatarsal. Previous amputation of the distal phalanx of the great toe. Prominent plantar calcaneal spur. No definite bony destructive change is seen. No soft tissue gas or foreign body. RIGHT 2nd toe amp wound improved. RIGHT lateral hallux ulcer improved. RIGHT 2nd toe amputation site ulcer and RIGHT lateral hallux Excisional debridement carried out of the wound with non selective sharp excisional debridement past the dermis into SUBQ level with use of curette and 15 scalpel bladed debriding non viable tissue out of wound. We then flushed out the wound with wound and put dressing on. Discussed importance in offloading, proper nutrition including blood sugar control and getting enough protein and vitamins, infection prevention, proper wound care in wound healing. Also discussed detrimental impact of smoking on healing. Reviewed proper wound care with patient. Dressing was applied today. To watch for signs of infection both local and systemic. These were reviewed with the patient. If seen to contact office or go to ED. To continue wound care consisting of washing the wound with soap and water or vashe solution. Then to apply dressing consisting of silver alginate and allevyn to hallux. To 2nd amputation site ulcer apply gentian rimma periwound and snap vac TODAY applied snap vac to RIGHT SECOND TOE AMPUTATION SITE ULCER and will plan twice a week dressing changes with this. Next plan if there is too much drainage is to order standard wound vac to help fill this void, as well as continue compression. JOSE A applied to wound base Discussed if snap vac fails or if seal breaks or if there is too much drainage patient is to take it down and to continue wound care consisting of washing the wound daily with soap and water. Then to apply dressing consisting of 1/4 iodoform packing, silver alginate, DSD and tubigrip compression She knows she is at risk for further amputation such as TMA and for admission to hospital with infection. Discussed need to keep wounds dry, maceration noted but improving she finished clindamycin cont HBO Awaiting insurance response to grafting no signs infection today, wound appears much better and snap vac functioned well Follow up at [facility] for ulcer check Mon and TH for snap vac changes and possible grafting Ulcer of right foot with fat layer exposed 707.15 L97.512 & Right foot pain 729.5 M79.671 & Pain of toe of right foot 729.5 M79.674 & Type II diabetes mellitus with neurological manifestations 250.60 E11.49 & Lymphedema of both lower extremities 457.1 I89.0 & PVD (peripheral vascular disease) 443.9 I73.9 & History of amputation of right great toe V49.71 Z89.411 & Amputated toe of right foot 895.0 S98.131A & Displaced fracture of distal phalanx of left lesser toe(s), subsequent encounter for fracture with routine healing V54.19 S92.532D & Skin ulcer of right foot including toes with fat layer exposed 707.15 L97.512 & Non-pressure chronic ulcer of other part of right foot with necrosis of bone 707.15 L97.514 & Skin ulcer of right foot including toes, limited to breakdown of skin 707.15 L97.511 documented in this encounter [facility] 12-31-2022 Instructions Stacy Manuel RN - 12/31/2022 8:16 AM EDT WOUND CARE INSTRUCTIONS- Shade Brambila Wound location: Right 2nd toe amp site SnapVac to stay in place until your next Wound Center appointment. Please keep the dressing clean and dry. SNAP VAC was applied at today's visit. If the sosa on the SNAP VAC pops out and you are unable to depress the sosa to achieve a good seal or you see a red line on the canister, then please remove the entire dressing and perform the alternate dressing as detailed below. SNAP VAC to be changed twice a week at the Wound Center. Alternate Wound dressings: - Gather supplies - Place down a clean work surface such as new paper towel or newly cleaned towel. - Clean all metal instruments with rubbing alcohol before and after each use. - Plastic garbage bag for old dressing - Wash your hands with soap and water before and after wound care. - Moisten a clean 4x4 gauze with several drops of Vashe solution and apply to all wounds. Let soak for 5-10 minutes and pat dry with clean gauze. Right 2nd toe amputation site - alternate dressing - Gently pack the amputation site with 1/4 inch iodoform ribbon packing to the base of the wound and leave a 1/2 inch tail out of the wound for ease of removal - Apply a piece of silver alginate (felt-like material) over the packing - Cover with dry gauze and secure with roll gauze and tape - Change the dressing daily or as needed to maintain a clean, dry and intact dressing Apply single layer tubi-exterminator termite to bilateral lower legs and then wrap circaids overtop left lower leg Compression wrap must be removed if: it becomes wet or soiled If you have numbness or tingling in your foot or toes If you have increased pain If toes become cold or discolored - Avoid sitting with legs in a dependent position or standing for long periods of time. - Attempt to lay flat and elevate your legs above the level of your heart 2-3 times daily, for 30 minutes at a time. - Be sure to continue walking and/or calf pumps and exercises to mimic writing the alphabet with your foot, as instructed - Control your sodium intake as instructed by provider - Moisturize legs daily and wear circaid wrap on left leg. Put Circaid wrap on in the morning and okay to remove at bedtime, leaving tubi-tobacco wetter size D in place on your right leg. To give your wound the best chance to heal: - Eat three balanced meals daily focusing on the protein - Control your blood sugar. Keep blood sugar less than 200 - Complete your wound care instructions as ordered - Vitamin C 500 mg twice daily - Multiple Vitamin Daily - Drink a protein shake daily - Premiere Clear or Glucerna for Diabetic patients, Nepro for renal patients and premiere for non-renal and non-diabetic patients Report any of the following signs and symptoms of infection to the Wound Center at [phone] or go to the Emergency Department: Fever or chills Increased drainage Green or yellow drainage Foul odor Increased pain Hardness around the wound Redness, warmth or swelling of the surrounding tissue Color change to the wound Evenings / Weekends / Holidays If you call the wound center at the phone number provided above, please leave a detailed message that includes your full name, birthday, and phone number. We are seeing patients during the day, so we will return your call within a 24-48 hr period in the order your call was received. There is not an on-call provider assigned to the wound center. If you have an emergency that needs to be addressed, please go to an Urgent Care or Emergency Room. Thank you for your cooperation and understanding. PLAN/ORDERS: Return to the wound center to see Dr. Hu Pickard or Dr. Alfredo Moore on the following dates: 01/04/23 at 8:00 am 01/07/23 at 8:00 am Continue aggressive nutritional support to assist wound healing. Call [facility] for more supplies, can re-order every 30 days. Phone #: [phone] Continue with HOBT treatment. Follow up with your PCP regarding elevated blood pressure. Grafts pending approval - call out to check on status Hu Pickard M.D./juanita/ lt documented in this encounter [facility] 12-31-2022 Nurse Note Nursing Documentation Pertinent Medical History: DM2, HTN, venous insufficiency, & heart failure Wound Etiology according to patient: Wounds spontaneously opened up over last 2 months Patient arrived via: Ambulatory with cane with a friend Home Care Company/Nursing Facility: N/A Consent captured for debridement per Dr Cici Cooper until May 2023 Consent captured for debridement per Dr. Neeraj KENNEY and linda until May 2023 Consent captured for debridement per Dr. Alfredo Moore DPM and linda until May 2023 Anticoagulant Therapy: N/A ACTIVE CARE PER PROVIDER: Giovanni Bolanos DPM, Hu Pickard DPM, & Alfredo Moore DPM WOUND # 1 -22 previously closed WOUND # 24, 25 previously closed WOUND # 27 LOCATION: Right dorsal Foot - intact bulla on arrival - new 11/26/22 Blister dry, intact closed skin 12/03/22, closed 12/07/22 WOUND ASSESSMENT: Refer to Provider's Wound Assessment Note VASCULAR ASSESSMENT BY PROVIDER: See provider wound assessment note CHF History: Yes as of February 2022, Dr. Sadler in Cardiology EDEMA: Right Foot: 1+ Right Calf: 1+ Left Calf: 3+ -not assessed this visit Left Foot 2+-not assessed thisvisit Other: N/A MEASUREMENTS: in cm Right Calf: 34.5 Right Ankle: 21.8 Left Calf: 32.0 - not measured this visit. Pt wearing Circaid wrap Left Ankle: 23.4 - not measured this visit. Pt wearing Circaid wrap Length: 43.0cm WOUND PHOTOGRAPHY: Yes x 2 DEBRIDEMENT PROCEDURE BY PROVIDER: Anesthetic Used: Insensate Other procedure: N/A Specimen collected: N/A WOUND TREATMENT PER MD ORDER: Wounds cleansed by mechanical debridement to allow provider to visualize wound base WOUND # 23 - LOCATION: Right 2nd Toe AMP Site seeking graft approval 12/17/22 by Bonnie L: 3.5 cm x W: 0.6 cm x D: 0.5 cm DEBRIDEMENT by provider:subQ Cleansed with: Dial soap and water, Vashe' Applied to naya-wound skin: Gentian Rimma, Duoderm, & Saul Seal Applied to wound bed: Jose A & Snap Vac Covered and secured with: ABD pad, conform, & tape Other: Vaseline to intact skin WOUND # 26 - LOCATION: Right Great Toe - Hallux Lateral- (new 11/10/22) L: 0.2 cm x W: 0.2 cm x D: 0.1 cm DEBRIDEMENT by provider: SubQ Cleansed with: Dial soap and water, Vashe' Applied to naya-wound skin: Gentian Rimma, Duoderm, Applied to wound bed: Jose A & Snap Vac Covered and secured with: ABD pad, conform, & tape Other: Vaseline to intact skin COMPRESSION: Single layer Tubi-Quality Assurance Tester size D to right lower leg, pt's own Circaid present on left lower leg SPECIAL NEEDS: Coordination of care HBOT Emotional support N/A OR set-up N/A Yarn Examiner N/A Incontinence needs N/A DISCHARGED in stable condition to: Ambulatory to HBOT with cane PLAN/ORDERS: Return to the wound center to see Dr. Hu Pickard or Dr. Alfredo Moore on the following dates: 01/04/23 at 8:00 am 01/07/23 at 8:00 am Continue aggressive nutritional support to assist wound healing. Call [facility] for more supplies, can re-order every 30 days. Phone #: [phone] Continue with HOBT treatment. Follow up with your PCP regarding elevated blood pressure. Grafts pending approval - call out to check on status EDUCATION: The patient/family was instructed how to cleanse the wound(s). Visual demonstration on how to apply the dressing with teach back method. Signs & symptoms of infection were reviewed: Increased redness, swelling, pain, green/yellow drainage, fever and/or chills would all need to be evaluated by a Physician. Patient received typed home-going wound care instructions and has expressed intent to comply. OTHER EDUCATION: Education performed regarding lymphedema/edema: Elevation of extremity above the heart for 30 minutes three times daily and as needed Exercise such as writing the ABC's with your toes in the air, walking and/or calf pumps Wearing compression as ordered by provider Diet controlling of sodium as instructed by provider Use of medication to help control edema. UNIVERSAL PROTOCOL / SAFETY CHECKLIST Procedure to be Performed: sharp wound debridement of Right Foot Sign In: 0816 A Moment of CARE was completed. Personnel directly involved with the procedure wore the appropriate PPE (Personal Protective Equipment). Patient/Surrogate Stated/Verified: PATIENT VERIFIED(optional for EMERGENT procedures): Patient name, Date of , Relevant allergies, and The intended procedure Time Out Communication:0828 Intended patient and procedure match the source documents. Consent documented and matches the intended procedure. Sign Out: 0832 SIGN OUT (optional for EMERGENT procedures): All instruments, equipment, possible retained foreign bodies accounted for. Post-procedure follow-up management communicated and Plan of Care Visit completed when applicable. Current HBOT Status: Active or Complete - see screening below WOUND CENTER HYPERBARIC OXYGEN THERAPY SCREENING 1. Is the patient diabetic? (If No, skip to question 5) Yes 2. Does the patient have a lower extremity wound? Yes 3. Is there exposed/involved tendon or bone? 4. Has the wound been present for 30 days? Yes If Yes to ALL questions above, consult the Hyperbaric Center 5. Has the patient been diagnosed with osteomyelitis? No 6. Has the patient had a previous skin graft or flap at the wound? No 7. Has the patient had or been offered vascular intervention/evaluation? No 8. Does the patient have a wound at an amputation site? Yes 9. Has the patient had radiation therapy at the site of the problem? No If Yes to ANY of questions 5-9, consult the Hyperbaric Center Active in HBO, Dr Benitez in to see pt and take photos. documented in this encounter [facility] 12-29-2022 History of Presen t illness Narrative Pharm stress test ordered as discussed with Inside Sales Agent regarding episodes of chest pain reported by patient. Ayan Wallis APRN.DEBORAH documented in this encounter [facility] 12-25-2022 History of Presen t illness Narrative Images from the original note were not included. Problem list reviewed. CHIEF COMPLAINT: check RT amputation site, lateral RT hallux, RT third toe tuft wounds SP Amputation of RT second toe, ID 10/28/2022 DM II A1c 10.3 DLS 10/12/2022 HISTORY OF PRESENT ILLNESS: Here today for POV RT second toe amputation and ID great toe and closure of wound RT lateral great toe. She finished clindamycin. Relates no issues with snap vac. Last seen by my colleague Dr Moore. She started HBO. She saw her area field manager who said she has some sleep apnea and said she was good to do HBO. Referred by Dr. Dasilva. 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 PCN allergy HX partial amputation RT great toe 07/08/2022 and LEFT great toe wound rx circade wraps 08/14/22 CURRENT MEDICATIONS: Cephalexin Oral Tablet 500 MG(10/23/2022) Take 1 tablet three times a day for 7 day(s) Ciprofloxacin HCl Oral Tablet 500 MG(10/23/2022) Take 1 tablet twice a day for 7 day(s) diazePAM Oral Tablet 10 MG(02/19/2022) TAKE 1 TABLET 60 MIN BEFORE TEST Ofloxacin Ophthalmic Solution 0.3 %(02/09/2022) PUT 1 DROP IN LEFT EYE 4 TIMES A DAY FLUoxetine HCl Oral Capsule 40 MG(01/26/2022) Enalapril Maleate Oral Tablet 10 MG(01/26/2022) TAKE 1 TABLET BY MOUTH EVERY DAY Atorvastatin Calcium Oral Tablet 40 MG(04/16/2022) TAKE 1 TABLET BY MOUTH EVERYDAY AT BEDTIME Erythromycin Ophthalmic Ointment 5 MG/GM(02/09/2022) APPLY 1 A SMALL AMOUNT LEFT EYE 4 TIMES A DAY Atorvastatin Calcium Oral Tablet 20 MG(01/26/2022) TAKE 1 TABLET BY MOUTH EVERY DAY Jardiance Oral Tablet 25 MG(03/23/2022) Spironolactone Oral Tablet 25 MG(04/17/2022) Furosemide Oral Tablet 40 MG(03/05/2022) TAKE 1 TABLET BY MOUTH EVERY DAY HumuLIN R U-500 KwikPen Subcutaneous Solution Pen-injector 500 UNIT/ML(09/29/2021) INJECT 90 UNITS SUBCUTANEOUSLY AT BREAKFAST TIME, 40 UNTIS AT LUNCH, AND 90 UNITS AT SUPPER metFORMIN HCl Oral Tablet 1000 MG(04/22/2022) ALLERGIES: Band-Aid [place] Surg Dressing Other Bandaging Tape Other PAST MEDICAL HISTORY: Podiatry History remarkable for Foot Numbness, Fungal Nails, Leg or Foot Ulcers. The patient has a past medical history of Arthritis, Depression, DM-Medication Dependent, Poor Circulation. Neuropathy High Cholesterol SURGICAL HISTORY: Hand Tonsils HOSPITALIZATIONS: None Noted SOCIAL HISTORY: Smoking Status: Never smoker; Last Reviewed: 11/02/2022 Alcohol use: social drinker No drug use Social History Reviewed (01/16/2021 11:20:18 AM EST) FAMILY HISTORY: There is a family history of Denial of any knowledge of significant family history. Denial of any knowledge of significant family history Family History Reviewed (01/16/2021 11:20:19 AM EST) REVIEW OF SYSTEMS: Psychologic: Admits to No psych symptoms. Review of systems otherwise negative PHYSICAL EXAMINATION: Vital Signs: Weight 235 lbs; Height 5 ft 8 in; BMI 35.7 12/22/2022 1:45 PM (EST) Temperature 98.6 F; Pulse Rate 100 bpm; Blood Pressure 120 / 80 mm/Hg Vascular Exam: BL Foot DP / PT pulses +2/4 CFT less than 3 seconds to digits, skin temp warm to warm from proximal to distal BL Foot Dermatologic Exam: RIGHT 2nd amputation site wound predebridement measures 4.2x0.3x0.3cm and post debridement measures 4.7x0.6x0.7cm with 30:70 granular fibrotic base, surrounding slough, no erythema, no purulence, probe to bone, no malodor, moderate serosanguinous drainage. Into level of FAT/FASCIA RIGHT lateral hallux wound predebridement measures 0.1x0.1x0.1cm and post debridement measures 0.2x0.3x0.2cm with 75:25 granular fibrotic base, surrounding slough, no erythema, no purulence, no probe to bone but NEAR bone, no malodor, moderate serosanguinous drainage. Into level of SUBCUTANEOUS tissue. Nails 1-5 left and 3-5 RT Bilateral are thickened, elongated and discolored with subungual debris. The nails are greater than .3mm in thickness. The discoloration is yellowish in color. Innerspaces 1-4bl are clean dry and intact. Skin texture and turgor are decreased. absent or decreased hair growth bilateral. nail changes bilateral Neurologic Exam: Comments/Other Findings: Vibratory sensations decreased BL at the MPJ, Protective sensations absent BL tested with 5.07 monofilament, and light, sharp, and temperature sensations intact bl. Muscle Testing of the Extensors, Flexors, Evertors (peroneals), and Invertors (posterior tibialis) BL leg shows 5/5 testing noted. Normal Babinski test noted bl foot after testing Orthopedic Exam: Additional Orthopedic Findings: RT partial great toe and 2nd toe amp noted DIAGNOSIS: Ulcer of right foot with fat layer exposed Right foot pain Pain of toe of right foot Type II diabetes mellitus with neurological manifestations Lymphedema of both lower extremities PVD (peripheral vascular disease) History of amputation of right great toe Amputated toe of right foot Displaced fracture of distal phalanx of left lesser toe(s), subsequent encounter for fracture with routine healing Skin ulcer of right foot including toes with fat layer exposed Non-pressure chronic ulcer of other part of right foot with necrosis of bone Skin ulcer of right foot including toes, limited to breakdown of skin PLAN AND TREATMENT: ASSESMENT & PLAN BL Foot and Ankle and Lower extremity Exam and Evaluation carried out with a treatment plan reviewed with the patient and findings discussed with patient including alternatives, benefits, complications and risks PREVIOUS TESTS / IMAGING / X-RAY EXAM 11/10/22 right foot XR: there is partial great toe noted with no sign of infection. second toe MPJ amp with met head resection noted. 12/22/21 PVR RESULTS: RIGHT SIDE Resting right ankle brachial index: 1.37Right toe brachial index: 0.70Normal ankle brachial index at rest in the right leg. Normal toe brachial index at rest in the right leg. Right ankle: Normal at rest. LEFT SIDE Resting left ankle brachial index: 1.33Left toe brachial index: 0.83Normal ankle brachial index at rest in the left leg. Normal toe brachial index at rest in the left leg. Left ankle: Normal at rest. 11/26/22 CULTURE: Streptococcus mitis-oralis, Staphylococcus epidermidis 11/23/22 left foot XR [facility]: Previous amputation of the second toe and the head of the second metatarsal. Remote healed fracture of the neck of the fifth metatarsal. Previous amputation of the distal phalanx of the great toe. Prominent plantar calcaneal spur. No definite bony destructive change is seen. No soft tissue gas or foreign body. RIGHT 2nd toe amp wound improved, more uniform depth. RIGHT lateral hallux ulcer improved. RIGHT 2nd toe amputation site ulcer treated with sharp excisional debridement carried out of the wound with non selective sharp excisional debridement past the dermis into FAT/FASCIA level with use of curette and 15 scalpel blade. Devitalized tissue removed and we then flushed out the wound with wound wash sterile saline. Area numbed with lidocaine gel if sensate prior. RIGHT lateral hallux Excisional debridement carried out of the wound with non selective sharp excisional debridement past the dermis into SUBCUTANEOUS level with use of curette and 15 scalpel bladed debriding non viable tissue out of wound. We then flushed out the wound with wound and put dressing on. Discussed importance in offloading, proper nutrition including blood sugar control and getting enough protein and vitamins, infection prevention, proper wound care in wound healing. Also discussed detrimental impact of smoking on healing. Reviewed proper wound care with patient. Dressing was applied today. To watch for signs of infection both local and systemic. These were reviewed with the patient. If seen to contact office or go to ED. To continue wound care consisting of washing the wound with soap and water or vashe solution. To RIGHT 2nd amputation site ulcer apply gentian rimma periwound, jose a to base and snap vac. To RIGHT lateral hallux wound apply jose a, silver alginate, and incorporate into snap vac dressing. TODAY applied snap vac to RIGHT SECOND TOE AMPUTATION SITE ULCER and will plan twice a week dressing changes with this. Next plan if there is too much drainage is to order standard wound vac to help fill this void, as well as continue compression. JOSE A applied to wound base Discussed if snap vac fails or if seal breaks or if there is too much drainage patient is to take it down and to continue wound care consisting of washing the wound daily with soap and water. Then to apply dressing consisting of 1/4 iodoform packing, silver alginate, DSD and tubigrip compression She knows she is at risk for further amputation such as TMA and for admission to hospital with infection. Discussed need to keep wounds dry, maceration noted. she finished clindamycin cont HBO no signs infection today, wound appears much better and snap vac functioned well Discussed possible need for regular wound vac. Will see how snap vac works Follow up at [facility] for ulcer check Mon and TH for snap vac changes Ulcer of right foot with fat layer exposed 707.15 L97.512 & Right foot pain 729.5 M79.671 & Pain of toe of right foot 729.5 M79.674 & Type II diabetes mellitus with neurological manifestations 250.60 E11.49 & Lymphedema of both lower extremities 457.1 I89.0 & PVD (peripheral vascular disease) 443.9 I73.9 & History of amputation of right great toe V49.71 Z89.411 & Amputated toe of right foot 895.0 S98.131A & Displaced fracture of distal phalanx of left lesser toe(s), subsequent encounter for fracture with routine healing V54.19 S92.532D & Skin ulcer of right foot including toes with fat layer exposed 707.15 L97.512 & Non-pressure chronic ulcer of other part of right foot with necrosis of bone 707.15 L97.514 & Skin ulcer of right foot including toes, limited to breakdown of skin 707.15 L97.511 documented in this encounter [facility] 12-24-2022 History of Presen t illness Narrative Images from the original note were not included. [facility] [place] [facility] OUTPATIENT VISIT DATE December 24, 2022 OUTPATIENT VISIT TYPE ESTABLISHED PRIMARY CARE PHYSICIAN: Eldon Gill DO CHIEF COMPLAINT: No chief complaint on file. HISTORY OF PRESENT ILLNESS: Shade Brambila is a 62 year old female who presents today for a follow-up visit in the Heart Failure Clinic. The patient was last seen in office 08/21. Last office visit with Dr. Sadler in Cardiology was 12/01. Due to recently elevated LDL, her dose of lipitor was increased to 80 mg. Patient has had 1 hospitalizations and/or emergency room encounters in the last 12 months. Most recent hospitalization was 10/28/2022 for amputation of right second toe. Today, the patient reports feeling well. Reports chest ache that occurs in the center of her chest that lasts approx 15 mins. Has only happened twice. The first time occurred while she was in hyperbaric and the second time was the night before when sitting in her recliner at home. Denies any other symptoms during these episodes. States she can feel anxious during her hyperbaric treatments. Also, states she had been taking Sudafed for over a week. She states her the past week her blood pressure has been elevated as well since the start of her hyperbaric treatments. She has started taking flonase instead of taking Sudafed. Feels very hot at night. Denies checking her blood pressure or blood sugar at night. Denies fever, chills, dizziness, lightheadedness or leg swelling. Attends hyperbar everyday for management of right big toe wound and now second right toe. Does report high blood pressures prior to treatment as she does get anxious about being in the chamber. She also does not take any of her morning medications until she gets home at 1200. IMPRESSION: NYHA Functional Class: II Stage: C heart failure Shade Brambila is a 61 year-old female who presents to the Heart Failure Clinic to establish care. She appears euvolemic on examination. Reports mild shortness of breath and 2 lb weight gain. Will have her increase her spironolactone for 2 days to 25 mg. She is resume 12.5 mg starting on Wednesday. As she will be at [facility] on Wednesday for hyperbaric, she will stop by the office to report her blood pressures and weights. Script for BP monitor given to patient as she does not have one. Discussed reason for elevated blood pressure in the late morning as she has not had her morning medications which include her enalapril. Discussed breathing techniques to use if she if feeling anxious while doing hyperbaric therapy. Will discuss with cardiology regarding possible stress to reassess chest discomfort. Reviewed plan of care with patient. All questions answered at this time. PLAN AND RECOMMENDATIONS: 1. Chronic heart failure with preserved ejection fraction (HCC) - ICD9: 428.9, ICD10: I50.32 (primary diagnosis) - daily weights, call office if weight increases 3-4 lbs in a 1-4 day period -2 gm low sodium diet -activity as tolerated, rest breaks as needed -spironolactone to 12.5 mg once a day -take additional 12.5 mg spironolactone x 2 days -continue lasix 40 mg once a day -25 mg jardiance once a day -follow up in HF Clinic 03/10 or sooner if needed 2. Primary hypertension - ICD9: 401.9, ICD10: I10 -BP suboptimal during visit 134/59 mmHg -encourage DASH/low sodium diet -encourage exercise with rest breaks as needed -goal BP <130/80 mmHg -continue home BP monitoring 3. Mixed hyperlipidemia - ICD9: 272.2, ICD10: E78.2 -continue atorvastatin -last lipid panel 09/19/2021; LDL 102, HDL 65, total 184 PAST MEDICAL HISTORY Diagnosis Date Charcot left foot due to diabetes mellitus ([facility]) 05/2013 subsequent to left foot fracture Depression Diabetes ([facility]) Diabetic ulcer of posterior right heel ([facility]) 02/06/2020 Foot fracture, left 05/2013 Charcot neuroarthropathy Menopause Obesity Renal disorder on vasotec to protect kidneys rt diabetes since 1998. Vitamin D deficiency 01/05/2017 PAST SURGICAL HISTORY Procedure Laterality Date AMPUTATION TOE,MT-P JT Right 07/2022 Hallux DILATION & CURETTAGE DX&/THER NONOBSTETRIC x3 EXTENSIVE HAND SURGERY Dupuytren contracture TONSILLECTOMY HX Social History Tobacco Use Smoking status: Never Smokeless tobacco: Never Vaping Use Vaping Use: Never used Substance Use Topics Alcohol use: Yes Comment: Occ Drug use: No Family History Problem Relation Age of Onset Heart Father CHF Hypertension Father Hypertension Mother other (polycystic kidney disease) Mother Cancer Paternal Aunt breast CA Diabetes Brother other (CHF) Paternal Grandmother Coronary Artery Disease Brother MD and at age 45 ALLERGIES Allergen Reactions Amoxicillin Unknown Patient does not remember reaction Codeine Other: See Comments Patient states Makes her Hyper CURRENT MEDICATIONS: Current Outpatient Medications Medication Sig Dispense Refill fluticasone (FLONASE) 50 mcg/actuation nasal spray Use 2 Sprays in each nostril once daily. X 7 days then may use as needed for nasal congestion 1 spray each nostril as needed thereafter Zinc 50 mg tab Take 50 mg by mouth once daily. atorvastatin (LIPITOR) 80 mg tablet Take 1 tablet by mouth once daily. 90 tablet 3 metFORMIN (GLUCOPHAGE) 1,000 mg tablet TAKE 1 TABLET BY MOUTH TWICE DAILY WITH MEALS. E11.3599 (Patient taking differently: Take 1,000 mg by mouth twice daily with meals. E11.3599 Patient states she only takes once per day) 180 tablet 3 multivit,thx,calcium,iron,mins (MULTIVITAMIN AND MINERAL ORAL) Take 1 tablet by mouth once daily. Ascorbic Acid 1,000 mg tablet Take 1,000 mg by mouth once daily. insulin regular human, CONCENTRATED 500 UNIT/ML, (HUMULIN R) 500 unit/mL (3 mL) inpn 100 units sc at breakfast, 40 units at lunch, 80 units at supper. (Patient taking differently: 40 units sc at breakfast, 100 units at lunch, 80 units at supper.) 42 mL 3 blood sugar diagnostic (ACCU-CHEK JOSE PLUS TEST STRP) test strip USE TO TEST BLOOD GLUCOSE 3 TIMES DAILY. 300 Strip 1 ibuprofen (ADVIL ORAL) Take 3 tablets by mouth as needed. empagliflozin (JARDIANCE) 25 mg tablet Take 1 tablet by mouth daily with breakfast. 90 tablet 3 spironolactone (ALDACTONE) 25 mg tablet Take 12.5 mg by mouth once daily. Take half tablet by mouth daily furosemide (LASIX ORAL) Take 40 mg by mouth once daily. FLUoxetine (PROZAC) 40 mg capsule Take by mouth q 24 HR. lancets (ONE TOUCH DELICA) 33 gauge USE TO BLOOD GLUCOSE 3 TIMES DAILY. INSULIN DEPENDENT E11.3299, E11.65, Z79.4 300 Each 3 insulin needles, DISPOSABLE, (BD INSULIN PEN NEEDLE UF) 31 gauge x 5/16 FOUR DAILY FOR INSULIN INJECTIONS. 400 Each 1 enalapril (VASOTEC) 10 mg tablet Take 1 tablet by mouth once daily. 90 tablet 3 Blood-Glucose Meter misc Use to test blood glucose 3 times daily. Insulin Dependent E11.3299, E11.65, Z79.4 1 Each 0 Cholecalciferol, Vitamin D3, 50 mcg (2,000 unit) cap Take 1 tablet by mouth once daily. Blood Pressure Monitor Please monitor blood pressure 1-2 hours after taking morning medications. 1 Kit 0 Current Facility-Administered Medications Medication Dose Route Frequency Provider Last Rate Last Admin cyanocobalamin 1,000 mcg injection 1,000 mcg INTRAMUSCULAR q 1 MONTH Eldon Gill DO 1,000 mcg at 12/01/22 1509 REVIEW OF SYSTEMS: GENERAL: Positive for:Weight gain HEENT: Positive for:Impaired Vision and Glasses NECK: Negative for: Swelling, Pain, Stiffness RESPIRATORY: Positive for: Shortness of breath GASTROINTESTINAL: Negative for: Trouble swallowing, Heartburn, Change in bowel habits, Blood in stool, Dark black stools, MUSCULOSKELETAL: Negtive for: Muscle or joint pain, stiffness, Joint swelling NEUROLOGIC/PSYCHIATRIC: Negative for: Weakness, Paralysis, Numbness, Tingling, Tremor, Nervousness or anxiety, Depressed mood, Memory loss SKIN: Negative for: Rash, Itching HEMATOLOGICAL/LYMPHATIC: Positive for: Easy bruising and Easy bleeding ENDOCRINE: Negative for: Heat or Cold Intolerance, Excessive Sweating, Frequent Urination, Frequent Thirst PHYSICAL EXAMINATION: BP 134/59 Pulse 77 Wt 100.7 kg (222 lb) SpO2 99% BMI 33.75 kg/m General: Normal exam, no distress, overweight, uses cane Skin: No clubbing, no cyanosis. Eyes: Extra ocular movements intact Neck: Neck veins are not distended Lungs: Chest clear to auscultation Heart: Rhythm: regular rate and rhythm, Rate: normal, no murmur Abdomen: Normal Extremities: Normal exam of the extremities; both legs wrapped Peripheral Pulses: Normal CARDIOVASCULAR MEDICINE TESTING: Laboratory Testing 08/21/2022: Latest Reference Range & Units 08/15/22 09:25 08/21/22 13:43 Sodium 136 - 144 mmol/L 139 Potassium 3.7 - 5.1 mmol/L 4.6 Chloride 97 - 105 mmol/L 102 CO2 22 - 30 mmol/L 28 BUN 7 - 21 mg/dL 15 Creatinine 0.58 - 0.96 mg/dL 0.71 Glucose 74 - 99 mg/dL 175 (H) Protein, Total 6.3 - 8.0 g/dL 7.6 Calcium 8.5 - 10.2 mg/dL 9.5 Albumin 3.9 - 4.9 g/dL 3.8 (L) Bilirubin, Total 0.2 - 1.3 mg/dL 0.4 Alkaline Phosphatase 34 - 123 U/L 131 (H) ALT 7 - 38 U/L 12 AST 13 - 35 U/L 22 Anion Gap 9 - 18 mmol/L 9 eGFR >=60 mL/min/1.73m 96 Vitamin B12 232 - 1,245 pg/mL <150 (L) Ferritin 14.7 - 205.1 ng/mL 100.3 Iron 41 - 186 ug/dL 54 TIBC 232 - 386 ug/dL 284 Transferrin Saturation 15.0 - 57.0 % 19.0 Cholesterol, Total <200 mg/dL 194 Triglyceride <150 mg/dL 110 Fasting Time hrs 12 HDL Cholesterol >39 mg/dL 55 LDL Cholesterol <100 mg/dL 117 (H) VLDL Cholesterol <30 mg/dL 22 TC:HDL Ratio <5.10 3.53 LDL:HDL Ratio <2.54 2.13 Non HDL Cholesterol <130 mg/dL 139 (H) (H): Data is abnormally high (L): Data is abnormally low Stress Test 04/2017: CONCLUSIONS: 1. SPECT Perfusion Study: Normal. 2. There is no scintigraphic evidence for inducible ischemia. 3. No evidence of scarred myocardium. 4. Left ventricle is normal in size. The left ventricle systolic function is normal. 5. This is a low risk scan. Gated Stress IR:3D LVEF % 67 Echocardiogram 02/2022: I have personally reviewed the Laboratory Testing and Echocardiogram. COUNSELING: We discussed the following non-pharmacological measures during this visit: Smoking and alcohol abstinence/cessation, if applicable Dietary and medication compliance Monitoring daily weights and blood pressures Exercise regimen When to call our office Heart Failure Education Booklet: Previously given. Discussed red flags and when to call MD/RN BABY or go to ED. Medications reconciled at end of visit: yes I spent 30 minutes in this visit, with more than 50% of the time devoted to patient counseling. SIGNATURE: Ayan Wallis APRN.CNP PATIENT NAME: Shade Brambila DATE: December 24, 2022 TIME: 7:57 AM documented in this encounter [facility] 12-24-2022 Instructions Ayan Wallis APRN.CNP - 12/24/2022 10:00 AM EDT Continue current medications as prescribed. Please take 25 mg spironolactone (whole tablet) for 2 days (today and tomorrow). Resume daily 12.5 mg spironolactone (1/2 tablet) on Wednesday. Weight daily. Check blood pressure 1-2 hours after your medications. Stop in the office on Friday 12/29 at 0930 to discuss symptoms. 2. Weigh yourself daily. Call me if your weight increases by 3-4 pounds in a 1-4 day period of time. 3. Continue low salt (2000 mg per day) diet. 4. Be as active as you are able. If you get tired, just stop and rest for a while. 5. Come back and see me on WednesdayMarch 10 at 1100. If you have any question or concern, you can call me at [phone]. documented in this encounter [facility] 12-24-2022 Instructions Stacy Manuel RN - 12/24/2022 8:15 AM EDT WOUND CARE INSTRUCTIONS- Shade Brambila Wound location: Right lower leg SnapVac to stay in place until your next Wound Center appointment. Please keep the dressing clean and dry. SNAP VAC was applied at today's visit. If the sosa on the SNAP VAC pops out and you are unable to depress the sosa to achieve a good seal or you see a red line on the canister, then please remove the entire dressing and perform the alternate dressing as detailed below. SNAP VAC to be changed twice a week at the Wound Center. Alternate Wound dressings: - Gather supplies - Place down a clean work surface such as new paper towel or newly cleaned towel. - Clean all metal instruments with rubbing alcohol before and after each use. - Plastic garbage bag for old dressing - Wash your hands with soap and water before and after wound care. - Moisten a clean 4x4 gauze with several drops of Vashe solution and apply to all wounds. Let soak for 5-10 minutes and pat dry with clean gauze. Right 2nd toe amputation site - alternate dressing - Gently pack the amputation site with 1/4 inch iodoform ribbon packing to the base of the wound and leave a 1/2 inch tail out of the wound for ease of removal - Apply a piece of silver alginate (felt-like material) over the packing - Cover with dry gauze and secure with roll gauze and tape - Change the dressing daily or as needed to maintain a clean, dry and intact dressing Apply single layer tubi-exterminator termite to bilateral lower legs and then wrap circaids overtop left lower leg Compression wrap must be removed if: it becomes wet or soiled If you have numbness or tingling in your foot or toes If you have increased pain If toes become cold or discolored - Avoid sitting with legs in a dependent position or standing for long periods of time. - Attempt to lay flat and elevate your legs above the level of your heart 2-3 times daily, for 30 minutes at a time. - Be sure to continue walking and/or calf pumps and exercises to mimic writing the alphabet with your foot, as instructed - Control your sodium intake as instructed by provider - Moisturize legs daily and wear circaid wrap on left leg. Put Circaid wrap on in the morning and okay to remove at bedtime, leaving tubi-tobacco wetter size D in place on your right leg. To give your wound the best chance to heal: - Eat three balanced meals daily focusing on the protein - Control your blood sugar. Keep blood sugar less than 200 - Complete your wound care instructions as ordered - Vitamin C 500 mg twice daily - Multiple Vitamin Daily - Drink a protein shake daily - Premiere Clear or Glucerna for Diabetic patients, Nepro for renal patients and premiere for non-renal and non-diabetic patients Report any of the following signs and symptoms of infection to the Wound Center at [phone] or go to the Emergency Department: Fever or chills Increased drainage Green or yellow drainage Foul odor Increased pain Hardness around the wound Redness, warmth or swelling of the surrounding tissue Color change to the wound Evenings / Weekends / Holidays If you call the wound center at the phone number provided above, please leave a detailed message that includes your full name, birthday, and phone number. We are seeing patients during the day, so we will return your call within a 24-48 hr period in the order your call was received. There is not an on-call provider assigned to the wound center. If you have an emergency that needs to be addressed, please go to an Urgent Care or Emergency Room. Thank you for your cooperation and understanding. PLAN/ORDERS: Return to the wound center to see Dr. uH Pickard or Dr. Alfredo Moore on the following dates: 12/28/22 at 8:00 am 12/31/22 at 8:00 am 01/04/23 at 8:00 am 01/07/23 at 8:00 am Continue aggressive nutritional support to assist wound healing. Call [facility] for more supplies, can re-order every 30 days. Phone #: [phone] Continue with HOBT treatment. Follow up with your PCP regarding elevated blood pressure. Grafts pending approval. Hu Pickard DPM/juanita/ciara documented in this encounter [facility] 12-24-2022 Nurse Note Nursing Documentation Pertinent Medical History: DM2, HTN, venous insufficiency, & heart failure Wound Etiology according to patient: Wounds spontaneously opened up over last 2 months Patient arrived via: Ambulatory with cane with a friend Home Care Company/Nursing Facility: N/A Consent captured for debridement per Dr Cici KENNEY and linda until May 2023 Consent captured for debridement per Dr. Neeraj KENNEY and linda until May 2023 Consent captured for debridement per Dr. Alfredo Moore DPM and linda until May 2023 Anticoagulant Therapy: N/A ACTIVE CARE PER PROVIDER: Giovanin Bolanos DPM, Hu Pickard DPM, & Alfredo Moore DPM WOUND # 1 -22 previously closed WOUND # 24, 25 previously closed WOUND # 27 LOCATION: Right dorsal Foot - intact bulla on arrival - new 11/26/22 Blister dry, intact closed skin 12/03/22, closed 12/07/22 WOUND ASSESSMENT: Refer to Provider's Wound Assessment Note VASCULAR ASSESSMENT BY PROVIDER: See provider wound assessment note CHF History: Yes as of February 2022, Dr. Sadler in Cardiology EDEMA: Right Foot: none Right Calf: trace Left Calf: 3+ -not assessed this visit Left Foot 2+-not assessed thisvisit Other: N/A MEASUREMENTS: in cm Right Calf: 33.5 Right Ankle: 23.0 Left Calf: 32.0 - not measured this visit. Pt wearing Circaid wrap Left Ankle: 23.4 - not measured this visit. Pt wearing Circaid wrap Length: 43.0cm WOUND PHOTOGRAPHY: Yes x 2 DEBRIDEMENT PROCEDURE BY PROVIDER: Anesthetic Used: Insensate Other procedure: N/A Specimen collected: N/A WOUND TREATMENT PER MD ORDER: Wounds cleansed by mechanical debridement to allow provider to visualize wound base WOUND # 23 - LOCATION: Right 2nd Toe AMP Site seeking graft approval 12/17/22 by Bonnie L: 4.7 cm x W: 0.6 cm x D: 0.7 cm DEBRIDEMENT by provider: Fat/Fascia Cleansed with: Vashe Applied to naya-wound skin: Gentian Rimma, Duoderm, & Saul Seal Applied to wound bed: Jose A & Snap Vac Covered and secured with: ABD pad, conform, & tape Other: Vaseline to intact skin WOUND # 26 - LOCATION: Right Great Toe - Hallux Lateral- (new 11/10/22) L: 0.2 cm x W: 0.3cm x D: 0.2 cm DEBRIDEMENT by provider: SubQ Cleansed with: Vashe Applied to naya-wound skin: Skin prep Applied to wound bed: Jose A & Silver Alginate Covered and secured with: Covered with the duoderm and vac drape COMPRESSION: Single layer Tubi-Quality Assurance Tester size D to right lower leg, pt's own Circaid present on left lower leg SPECIAL NEEDS: Coordination of care N/A Emotional support N/A OR set-up N/A Yarn Examiner N/A Incontinence needs N/A DISCHARGED in stable condition to: Ambulatory to HBOT with cane PLAN/ORDERS: Return to the wound center to see Dr. Hu Pickard or Dr. Alfredo Moore on the following dates: 12/28/22 at 8:00 am 12/31/22 at 8:00 am 01/04/23 at 8:00 am 01/07/23 at 8:00 am Continue aggressive nutritional support to assist wound healing. Call [facility] for more supplies, can re-order every 30 days. Phone #: [phone] Continue with HOBT treatment. Follow up with your PCP regarding elevated blood pressure. Grafts pending approval. EDUCATION: The patient/family was instructed how to cleanse the wound(s). Visual demonstration on how to apply the dressing with teach back method. Signs & symptoms of infection were reviewed: Increased redness, swelling, pain, green/yellow drainage, fever and/or chills would all need to be evaluated by a Physician. Patient received typed home-going wound care instructions and has expressed intent to comply. OTHER EDUCATION: Reviewed importance of compression, snap vac on wound healing Education performed regarding lymphedema/edema: Elevation of extremity above the heart for 30 minutes three times daily and as needed Exercise such as writing the ABC's with your toes in the air, walking and/or calf pumps Wearing compression as ordered by provider Diet controlling of sodium as instructed by provider Use of medication to help control edema. UNIVERSAL PROTOCOL / SAFETY CHECKLIST Procedure to be Performed: sharp wound debridement of Right Foot Sign In:0833 A Moment of CARE was completed. Personnel directly involved with the procedure wore the appropriate PPE (Personal Protective Equipment). Patient/Surrogate Stated/Verified: PATIENT VERIFIED(optional for EMERGENT procedures): Patient name, Date of , Relevant allergies, and The intended procedure Time Out Communication: 0819 Intended patient and procedure match the source documents. Consent documented and matches the intended procedure. Sign Out: 0836 SIGN OUT (optional for EMERGENT procedures): All instruments, equipment, possible retained foreign bodies accounted for. Post-procedure follow-up management communicated and Plan of Care Visit completed when applicable. Stacy Manuel RN Current HBOT Status: Active or Complete - see screening below WOUND CENTER HYPERBARIC OXYGEN THERAPY SCREENING 1. Is the patient diabetic? (If No, skip to question 5) Yes 2. Does the patient have a lower extremity wound? Yes 3. Is there exposed/involved tendon or bone? 4. Has the wound been present for 30 days? Yes If Yes to ALL questions above, consult the Hyperbaric Center 5. Has the patient been diagnosed with osteomyelitis? No 6. Has the patient had a previous skin graft or flap at the wound? No 7. Has the patient had or been offered vascular intervention/evaluation? No 8. Does the patient have a wound at an amputation site? Yes 9. Has the patient had radiation therapy at the site of the problem? No If Yes to ANY of questions 5-9, consult the Hyperbaric Center Active in HBO, Dr Benitez in to see pt and take photos. Stacy Manuel RN documented in this encounter [facility] 12-18-2022 History of Presen t illness Narrative Images from the original note were not included. Problem list reviewed. CHIEF COMPLAINT: check RT amputation site, lateral RT hallux, RT third toe tuft wounds SP Amputation of RT second toe, ID 10/28/2022 DM II A1c 10.3 DLS 10/12/2022 HISTORY OF PRESENT ILLNESS: Here today for POV RT second toe amputation and ID great toe and closure of wound RT lateral great toe. She finished clindamycin and had snap vac reappled. Last seen by my colleague Dr Moore. She is doing well, no complaints. She started HBO. She saw her area field manager who said she has some sleep apnea and said she was good to do HBO. Referred by Dr. Dasilva. 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 PCN allergy HX partial amputation RT great toe 07/08/2022 and LEFT great toe wound rx circade wraps 08/14/22 CURRENT MEDICATIONS: Cephalexin Oral Tablet 500 MG(10/23/2022) Take 1 tablet three times a day for 7 day(s) Ciprofloxacin HCl Oral Tablet 500 MG(10/23/2022) Take 1 tablet twice a day for 7 day(s) diazePAM Oral Tablet 10 MG(02/19/2022) TAKE 1 TABLET 60 MIN BEFORE TEST Ofloxacin Ophthalmic Solution 0.3 %(02/09/2022) PUT 1 DROP IN LEFT EYE 4 TIMES A DAY FLUoxetine HCl Oral Capsule 40 MG(01/26/2022) Enalapril Maleate Oral Tablet 10 MG(01/26/2022) TAKE 1 TABLET BY MOUTH EVERY DAY Atorvastatin Calcium Oral Tablet 40 MG(04/16/2022) TAKE 1 TABLET BY MOUTH EVERYDAY AT BEDTIME Erythromycin Ophthalmic Ointment 5 MG/GM(02/09/2022) APPLY 1 A SMALL AMOUNT LEFT EYE 4 TIMES A DAY Atorvastatin Calcium Oral Tablet 20 MG(01/26/2022) TAKE 1 TABLET BY MOUTH EVERY DAY Jardiance Oral Tablet 25 MG(03/23/2022) Spironolactone Oral Tablet 25 MG(04/17/2022) Furosemide Oral Tablet 40 MG(03/05/2022) TAKE 1 TABLET BY MOUTH EVERY DAY HumuLIN R U-500 KwikPen Subcutaneous Solution Pen-injector 500 UNIT/ML(09/29/2021) INJECT 90 UNITS SUBCUTANEOUSLY AT BREAKFAST TIME, 40 UNTIS AT LUNCH, AND 90 UNITS AT SUPPER metFORMIN HCl Oral Tablet 1000 MG(04/22/2022) ALLERGIES: Band-Aid [place] Surg Dressing Other Bandaging Tape Other PAST MEDICAL HISTORY: Podiatry History remarkable for Foot Numbness, Fungal Nails, Leg or Foot Ulcers. The patient has a past medical history of Arthritis, Depression, DM-Medication Dependent, Poor Circulation. Neuropathy High Cholesterol SURGICAL HISTORY: Hand Tonsils HOSPITALIZATIONS: None Noted SOCIAL HISTORY: Smoking Status: Never smoker; Last Reviewed: 11/02/2022 Alcohol use: social drinker No drug use Social History Reviewed (01/16/2021 11:20:18 AM EST) FAMILY HISTORY: There is a family history of Denial of any knowledge of significant family history. Denial of any knowledge of significant family history Family History Reviewed (01/16/2021 11:20:19 AM EST) REVIEW OF SYSTEMS: Psychologic: Admits to No psych symptoms. Review of systems otherwise negative PHYSICAL EXAMINATION: Vital Signs: Weight 235 lbs; Height 5 ft 8 in; BMI 35.7 12/15/2022 10:18 AM (EST) Temperature 98.6 F; Pulse Rate 100 bpm; Blood Pressure 120 / 80 mm/Hg Vascular Exam: BL Foot DP / PT pulses +2/4 CFT less than 3 seconds to digits, skin temp warm to warm from proximal to distal BL Foot Dermatologic Exam: RIGHT 2nd amputation site wound predebridement measures 4.0x0.4x0.9cm and post debridement measures 4.4x0.7x1.4cm with 20:80 granular fibrotic base, surrounding slough, no erythema, no purulence, probe to bone, no malodor, moderate serosanguinous drainage. Into level of FAT/FASCIA RIGHT lateral hallux wound predebridement measures 0.3x0.1x0.1cm and post debridement measures 0.6x0.4x0.3cm with 50:50 granular fibrotic base, surrounding slough, no erythema, no purulence, no probe to bone but NEAR bone, no malodor, moderate serosanguinous drainage. Into level of SUBCUTANEOUS TISSUE RIGHT 3rd toe tuft wound remains healed Nails 1-5 left and 3-5 RT Bilateral are thickened, elongated and discolored with subungual debris. The nails are greater than .3mm in thickness. The discoloration is yellowish in color. Innerspaces 1-4bl are clean dry and intact. Skin texture and turgor are decreased. absent or decreased hair growth bilateral. nail changes bilateral Neurologic Exam: Comments/Other Findings: Vibratory sensations decreased BL at the MPJ, Protective sensations absent BL tested with 5.07 monofilament, and light, sharp, and temperature sensations intact bl. Muscle Testing of the Extensors, Flexors, Evertors (peroneals), and Invertors (posterior tibialis) BL leg shows 5/5 testing noted. Normal Babinski test noted bl foot after testing Orthopedic Exam: Additional Orthopedic Findings: RT partial great toe and 2nd toe amp noted DIAGNOSIS: Ulcer of right foot with fat layer exposed Right foot pain Pain of toe of right foot Type II diabetes mellitus with neurological manifestations Lymphedema of both lower extremities PVD (peripheral vascular disease) History of amputation of right great toe Amputated toe of right foot Displaced fracture of distal phalanx of left lesser toe(s), subsequent encounter for fracture with routine healing Skin ulcer of right foot including toes with fat layer exposed Non-pressure chronic ulcer of other part of right foot with necrosis of bone Skin ulcer of right foot including toes, limited to breakdown of skin Dehiscence of surgical wound PLAN AND TREATMENT: ASSESMENT & PLAN BL Foot and Ankle and Lower extremity Exam and Evaluation carried out with a treatment plan reviewed with the patient and findings discussed with patient including alternatives, benefits, complications and risks PREVIOUS TESTS / IMAGING / X-RAY EXAM 11/10/22 right foot XR: there is partial great toe noted with no sign of infection. second toe MPJ amp with met head resection noted. 12/22/21 PVR RESULTS: RIGHT SIDE Resting right ankle brachial index: 1.37Right toe brachial index: 0.70Normal ankle brachial index at rest in the right leg. Normal toe brachial index at rest in the right leg. Right ankle: Normal at rest. LEFT SIDE Resting left ankle brachial index: 1.33Left toe brachial index: 0.83Normal ankle brachial index at rest in the left leg. Normal toe brachial index at rest in the left leg. Left ankle: Normal at rest. 11/26/22 CULTURE: Streptococcus mitis-oralis, Staphylococcus epidermidis 11/23/22 left foot XR [facility]: Previous amputation of the second toe and the head of the second metatarsal. Remote healed fracture of the neck of the fifth metatarsal. Previous amputation of the distal phalanx of the great toe. Prominent plantar calcaneal spur. No definite bony destructive change is seen. No soft tissue gas or foreign body. RIGHT 2nd toe amp wound stable. RIGHT lateral hallux ulcer stable. RIGHT lateral hallux ulcer treated with sharp excisional debridement carried out of the wound with non selective sharp excisional debridement past the dermis into SUBCUTANEOUS level with use of curette and 15 scalpel blade. Devitalized tissue removed. We then flushed out the wound with wound wash sterile saline. Area numbed with lidocaine gel if sensate prior. RIGHT 2nd toe amputation site ulcer treated with sharp excisional debridement carried out of the wound with non selective sharp excisional debridement past the dermis into FAT/FASCIA level with use of curette and 15 scalpel blade. Devitalized tissue removed and we then flushed out the wound with wound wash sterile saline. Area numbed with lidocaine gel if sensate prior. Discussed importance in offloading, proper nutrition including blood sugar control and getting enough protein and vitamins, infection prevention, proper wound care in wound healing. Also discussed detrimental impact of smoking on healing. Reviewed proper wound care with patient. Dressing was applied today. To watch for signs of infection both local and systemic. These were reviewed with the patient. If seen to contact office or go to ED. To continue wound care consisting of washing the wound with soap and water or vashe solution. Then to apply dressing consisting of jose a, silver alginate and allevyn to hallux. To 2nd amputation site ulcer apply gentian rimma periwound and jose a and snap vac TODAY applied snap vac to RIGHT SECOND TOE AMPUTATION SITE ULCER and will plan twice a week dressing changes with this. Next plan if there is too much drainage is to order standard wound vac to help fill this void, as well as continue compression. JOSE A applied to wound base Discussed if snap vac fails or if seal breaks or if there is too much drainage patient is to take it down and to continue wound care consisting of washing the wound daily with soap and water. Then to apply dressing consisting of 1/4 iodoform packing, silver alginate, DSD and tubigrip compression She knows she is at risk for further amputation such as TMA and for admission to hospital with infection. Discussed need to keep wounds dry, maceration noted. she finished clindamycin cont HBO apply for graft- RX prealbumin Discussed possible need for regular wound vac. Will see how snap vac works Follow up at [facility] for ulcer check Mon and THUR for snap vac changes Ulcer of right foot with fat layer exposed 707.15 L97.512 & Right foot pain 729.5 M79.671 & Pain of toe of right foot 729.5 M79.674 & Type II diabetes mellitus with neurological manifestations 250.60 E11.49 & Lymphedema of both lower extremities 457.1 I89.0 & PVD (peripheral vascular disease) 443.9 I73.9 & History of amputation of right great toe V49.71 Z89.411 & Amputated toe of right foot 895.0 S98.131A & Displaced fracture of distal phalanx of left lesser toe(s), subsequent encounter for fracture with routine healing V54.19 S92.532D & Skin ulcer of right foot including toes with fat layer exposed 707.15 L97.512 & Non-pressure chronic ulcer of other part of right foot with necrosis of bone 707.15 L97.514 & Skin ulcer of right foot including toes, limited to breakdown of skin 707.15 L97.511 & Dehiscence of surgical wound 998.32 T81.31XA documented in this encounter [facility] 12-17-2022 Instructions Bonnie Molina RN - 12/17/2022 9:27 AM EDT WOUND CARE INSTRUCTIONS- Shade Brambila Wound location: Right lower leg SnapVac to stay in place until your next Wound Center appointment. Please keep the dressing clean and dry. SNAP VAC was applied at today's visit. If the sosa on the SNAP VAC pops out and you are unable to depress the sosa to achieve a good seal or you see a red line on the canister, then please remove the entire dressing and perform the alternate dressing as detailed below. SNAP VAC to be changed twice a week at the Wound Center. Alternate Wound dressings: - Gather supplies - Place down a clean work surface such as new paper towel or newly cleaned towel. - Clean all metal instruments with rubbing alcohol before and after each use. - Plastic garbage bag for old dressing - Wash your hands with soap and water before and after wound care. - Moisten a 4x4 gauze with several drops of Vashe solution and apply to all wounds. Let soak for 5-10 minutes and pat dry with clean gauze. Right 2nd toe amputation site - alternate dressing - Gently pack the amputation site with 1/4 inch iodoform ribbon packing to the base of the wound and leave a 1/2 inch tail out of the wound for ease of removal - Apply a piece of silver alginate (felt-like material) over the packing - Cover with dry gauze and secure with roll gauze and tape - Change the dressing daily or as needed to maintain a clean, dry and intact dressing Apply single layer tubi-exterminator termite to bilateral lower legs and then wrap circaids overtop left lower leg Compression wrap must be removed if: it becomes wet or soiled If you have numbness or tingling in your foot or toes If you have increased pain If toes become cold or discolored - Avoid sitting with legs in a dependent position or standing for long periods of time. - Attempt to lay flat and elevate your legs above the level of your heart 2-3 times daily, for 30 minutes at a time. - Be sure to continue walking and/or calf pumps and exercises to mimic writing the alphabet with your foot, as instructed - Control your sodium intake as instructed by provider - Moisturize legs daily and wear circaid wrap on left leg. Put Circaid wrap on in the morning and okay to remove at bedtime, leaving tubi-tobacco wetter size D in place on your right leg. To give your wound the best chance to heal: - Eat three balanced meals daily focusing on the protein - Control your blood sugar. Keep blood sugar less than 200 - Complete your wound care instructions as ordered - Vitamin C 500 mg twice daily - Multiple Vitamin Daily - Drink a protein shake daily - Premiere Clear or Glucerna for Diabetic patients, Nepro for renal patients and premiere for non-renal and non-diabetic patients Report any of the following signs and symptoms of infection to the Wound Center at [phone] or go to the Emergency Department: Fever or chills Increased drainage Green or yellow drainage Foul odor Increased pain Hardness around the wound Redness, warmth or swelling of the surrounding tissue Color change to the wound Evenings / Weekends / Holidays If you call the wound center at the phone number provided above, please leave a detailed message that includes your full name, birthday, and phone number. We are seeing patients during the day, so we will return your call within a 24-48 hr period in the order your call was received. There is not an on-call provider assigned to the wound center. If you have an emergency that needs to be addressed, please go the Urgent Care or the Emergency Room. Thank you for your cooperation and understanding. PLAN/ORDERS: Return to the wound center to see Dr. Hu Pickard DPM or Dr. Alfredo Moore DPM on the following dates: -12/21/22 at 8:00 am -12/24/22 at 8:00 am -12/28/22 at 8:00 am -12/31/22 at 8:00 am 2. Continue aggressive nutritional support to assist wound healing 3. Call [facility] for more supplies, can re-order every 30 days. Phone #: [phone] 4. Continue with HOBT treatment 5. Follow up with your PCP regarding elevated BP Bonnie to work on submission of a graft Prealbumin to be drawn while at [facility] today, if possible Dr. Hu Pickard DPM/mjrenetta/lt documented in this encounter [facility] 12-17-2022 Nurse Note Nursing Documentation Pertinent Medical History: DM2, HTN, venous insufficiency, heart failure Wound Etiology according to patient: wounds spontaneously opened up over last 2 months Patient arrived via: ambulatory with cane with a friend Home Care Company/Nursing Facility: N/A Consent captured for debridement per Dr Cici KENNEY and linda until May 2023 Consent captured for debridement per Dr. Neeraj KENNEY and linda until May 2023 Consent captured for debridement per Dr. Alfredo Moore DPM and linda until May 2023 Anticoagulant Therapy: N/A ACTIVE CARE PER PROVIDER: Giovanni Bolanos DPM, Hu Pickard DPM, Alfredo Moore DPM WOUND # 1 right anterior proximal lower leg WOUND # 2 right anterior mid lower leg Combined with #3 01-13-2022 WOUND # 3 right anterior distal lower leg Combined with #2 01-13-2022 WOUND #4 right posterior proximal lower leg closed 01-13-2022 WOUND #5 LOCATION: right posterior mid lower leg Closed 01-13-2022 WOUND #6 LOCATION: right posterior distal lower leg Closed 01-13-2022 WOUND #7 Left anterior lower leg - closed 02/17/22 WOUND # 8 Left anterior lateral lower leg closed 01-13-2022 WOUND #9 Left lateral ankle closed 03-24-2022 WOUND #10 Left lateral ankle- posterior closed 03-24-2022 WOUND #11 Left posterior leg proximal closed 03-24-2022 WOUND #12 Left posterior leg distal closed 03-24-2022 WOUND #13 Right Anterior Lateral steiner WOUND # 14_LOCATION: LLE anterior proximal cluster - closed 02/17/22 WOUND # 15 LOCATION: LLE Medial Anterior - closed 02/17/22 WOUND # 16_LOCATION: Left foot dorsum 1st met Head - closed 02/17/22 WOUND # 17 LOCATION: LLE Proximal lateral ankle - closed 02/17/22 WOUND #18 Right Lateral Leg superior closed 03-24-2022 WOUND #19 Right Lateral Leg inferior closed 03-24-2022 WOUND #20 Right Anterior lower leg superior closed 03-24-2022 WOUND #21 Right anterior lower leg Mid closed 03-24-2022 WOUND #22 Right anterior leg closed 03-24-2022 WOUND # 24 - LOCATION: Right Anterior Lower Leg - Cluster (changed to cluster on 11/10/22) CLOSED 11/16/22, Remains closed 11/19/22 WOUND # 27 LOCATION: Right dorsal Foot - intact bulla on arrival - new 11/26/22 Blister dry, intact closed skin 12/03/22, closed 12/07/22 WOUND # 25 - LOCATION: Right 3rd Toe Tuft Closed 12/14/22 WOUND ASSESSMENT: Refer to Provider's Wound Assessment Note VASCULAR ASSESSMENT BY PROVIDER: See provider wound assessment note CHF History: Yes as of February 2022, Dr. Sadler in Cardiology EDEMA: Right Foot: trace Right Calf: generalized, firm Left Calf: 3+ -not assessed this visit Left Foot 2+-not assessed thisvisit Other: N/A MEASUREMENTS: in cm Right Calf: 34.5 Right Ankle: 23.0 Left Calf: 32.0 - not measured this visit. Pt wearing Circaid wrap Left Ankle: 23.4 - not measured this visit. Pt wearing Circaid wrap Length: 43.0cm WOUND PHOTOGRAPHY: Yes x 2 DEBRIDEMENT PROCEDURE BY PROVIDER: Anesthetic Used: insensate Other procedure: N/A Specimen collected: N/A WOUND TREATMENT PER MD ORDER: Wounds cleansed by mechanical debridement to allow provider to visualize wound base WOUND # 23 - LOCATION: Right 2nd Toe AMP Site seeking graft approval 12/17/22 by Bonnie L: 4.4 cm x W: 0.7 cm x D: 1.4 cm DEBRIDEMENT by provider: Fascia Cleansed with: Vashe Applied to naya-wound skin: Gentian Rimma, Duoderm, Saul's Seal Applied to wound bed: Jose A, Snap Vac Covered and secured with: ABD, conform Other: vaseline to intact skin WOUND # 26 - LOCATION: Right Great Toe - Hallux Lateral- (new 11/10/22) L: 0.6 cm x W: 0.4 cm x D: 0.3 cm DEBRIDEMENT by provider: sq Cleansed with: Vashe Applied to naya-wound skin: skin prep Applied to wound bed: jose a, Calcium Alginate Ag Covered and secured with: covered with the duoderm and vac drape COMPRESSION: Single layer Tubi-Quality Assurance Tester size D to right lower leg, pt's own Circaid present on left lower leg SPECIAL NEEDS: Coordination of care - n/a Emotional support N/A OR set-up N/A 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 Hu Pickard DPM or Dr. Alfredo Moore DPM on the following dates: -12/21/22 at 8:00 am -12/24/22 at 8:00 am -12/28/22 at 8:00 am -12/31/22 at 8:00 am 2. Continue aggressive nutritional support to assist wound healing 3. Call company [employer] for more supplies, can re-order every 30 days. Phone #: [phone] 4. Continue with HOBT treatment 5. Follow up with your PCP regarding elevated BP Bonnie to work on submission of a graft Prealbumin to be drawn while at [facility] today, if possible EDUCATION: The patient/family was instructed how to cleanse the wound(s). Visual demonstration on how to apply the dressing with teach back method. Signs & symptoms of infection were reviewed: Increased redness, swelling, pain, green/yellow drainage, fever and/or chills would all need to be evaluated by a Physician. Patient received typed home-going wound care instructions and has expressed intent to comply. OTHER EDUCATION: Education performed regarding lymphedema/edema: Elevation of extremity above the heart for 30 minutes three times daily and as needed Exercise such as writing the ABC's with your toes in the air, walking and/or calf pumps Wearing compression as ordered by provider Diet controlling of sodium as instructed by provider Use of medication to help control edema. UNIVERSAL PROTOCOL / SAFETY CHECKLIST Procedure to be Performed: sharp wound debridement of Right Foot Sign In: 09 A Moment of CARE was completed. Personnel directly involved with the procedure wore the appropriate PPE (Personal Protective Equipment). Patient/Surrogate Stated/Verified: PATIENT VERIFIED(optional for EMERGENT procedures): Patient name, Date of , Relevant allergies, and The intended procedure Time Out Communication: 09 Intended patient and procedure match the source documents. Consent documented and matches the intended procedure. Sign Out: 929 SIGN OUT (optional for EMERGENT procedures): No specimen collected. Post-procedure follow-up management communicated and Plan of Care Visit completed when applicable. Current HBOT Status: Active or Complete - see screening below WOUND CENTER HYPERBARIC OXYGEN THERAPY SCREENING 1. Is the patient diabetic? (If No, skip to question 5) Yes 2. Does the patient have a lower extremity wound? Yes 3. Is there exposed/involved tendon or bone? 4. Has the wound been present for 30 days? Yes If Yes to ALL questions above, consult the Hyperbaric Center 5. Has the patient been diagnosed with osteomyelitis? No 6. Has the patient had a previous skin graft or flap at the wound? No 7. Has the patient had or been offered vascular intervention/evaluation? No 8. Does the patient have a wound at an amputation site? Yes 9. Has the patient had radiation therapy at the site of the problem? No If Yes to ANY of questions 5-9, consult the Hyperbaric Center Active in HBO, Dr Benitez in to see pt and take photos. Dahlia Andrade RN documented in this encounter [facility] 12-15-2022 History of Presen t illness Narrative Images from the original note were not included. Problem list reviewed. CHIEF COMPLAINT: check RT amputation site, lateral RT hallux, RT third toe tuft wounds SP Amputation of RT second toe, ID 10/28/2022 DM II A1c 10.3 DLS 10/12/2022 HISTORY OF PRESENT ILLNESS: Here today for POV RT second toe amputation and ID great toe and closure of wound RT lateral great toe. She finished clindamycin and had snap vac reappled. Last seen by my colleague Dr Pickard. she is doing well, no complaints She started HBO. She saw her area field manager who said she has some sleep apnea and said she was good to do HBO. Referred by Dr. Dasilva. 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 PCN allergy HX partial amputation RT great toe 07/08/2022 and LEFT great toe wound rx circade wraps 08/14/22 CURRENT MEDICATIONS: Cephalexin Oral Tablet 500 MG(10/23/2022) Take 1 tablet three times a day for 7 day(s) Ciprofloxacin HCl Oral Tablet 500 MG(10/23/2022) Take 1 tablet twice a day for 7 day(s) diazePAM Oral Tablet 10 MG(02/19/2022) TAKE 1 TABLET 60 MIN BEFORE TEST Ofloxacin Ophthalmic Solution 0.3 %(02/09/2022) PUT 1 DROP IN LEFT EYE 4 TIMES A DAY FLUoxetine HCl Oral Capsule 40 MG(01/26/2022) Enalapril Maleate Oral Tablet 10 MG(01/26/2022) TAKE 1 TABLET BY MOUTH EVERY DAY Atorvastatin Calcium Oral Tablet 40 MG(04/16/2022) TAKE 1 TABLET BY MOUTH EVERYDAY AT BEDTIME Erythromycin Ophthalmic Ointment 5 MG/GM(02/09/2022) APPLY 1 A SMALL AMOUNT LEFT EYE 4 TIMES A DAY Atorvastatin Calcium Oral Tablet 20 MG(01/26/2022) TAKE 1 TABLET BY MOUTH EVERY DAY Jardiance Oral Tablet 25 MG(03/23/2022) Spironolactone Oral Tablet 25 MG(04/17/2022) Furosemide Oral Tablet 40 MG(03/05/2022) TAKE 1 TABLET BY MOUTH EVERY DAY HumuLIN R U-500 KwikPen Subcutaneous Solution Pen-injector 500 UNIT/ML(09/29/2021) INJECT 90 UNITS SUBCUTANEOUSLY AT BREAKFAST TIME, 40 UNTIS AT LUNCH, AND 90 UNITS AT SUPPER metFORMIN HCl Oral Tablet 1000 MG(04/22/2022) ALLERGIES: Band-Aid [place] Surg Dressing Other Bandaging Tape Other PAST MEDICAL HISTORY: Podiatry History remarkable for Foot Numbness, Fungal Nails, Leg or Foot Ulcers. The patient has a past medical history of Arthritis, Depression, DM-Medication Dependent, Poor Circulation. Neuropathy High Cholesterol SURGICAL HISTORY: Hand Tonsils HOSPITALIZATIONS: None Noted SOCIAL HISTORY: Smoking Status: Never smoker; Last Reviewed: 11/02/2022 Alcohol use: social drinker No drug use Social History Reviewed (01/16/2021 11:20:18 AM EST) FAMILY HISTORY: There is a family history of Denial of any knowledge of significant family history. Denial of any knowledge of significant family history Family History Reviewed (01/16/2021 11:20:19 AM EST) REVIEW OF SYSTEMS: Psychologic: Admits to No psych symptoms. Review of systems otherwise negative PHYSICAL EXAMINATION: Vital Signs: Weight 235 lbs; Height 5 ft 8 in; BMI 35.7 12/10/2022 11:25 AM (EST) Temperature 98.6 F; Pulse Rate 100 bpm; Blood Pressure 120 / 80 mm/Hg Vascular Exam: BL Foot DP / PT pulses +2/4 CFT less than 3 seconds to digits, skin temp warm to warm from proximal to distal BL Foot Dermatologic Exam: RIGHT 2nd amputation site wound predebridement measures 4.0x0.4x0.9cm and post debridement measures 4.0x0.5x1.0cm with 20:80 granular fibrotic base, surrounding slough, no erythema, no purulence, probe to bone, no malodor, moderate serosanguinous drainage. Into level of FAT/FASCIA RIGHT lateral hallux wound predebridement measures 0.1x0.1x0.1cm and post debridement measures 0.4x0.2x0.3cm with 50:50 granular fibrotic base, surrounding slough, no erythema, no purulence, no probe to bone but NEAR bone, no malodor, moderate serosanguinous drainage. Into level of FAT TISSUE RIGHT 3rd toe tuft wound healed Nails 1-5 left and 3-5 RT Bilateral are thickened, elongated and discolored with subungual debris. The nails are greater than .3mm in thickness. The discoloration is yellowish in color. Innerspaces 1-4bl are clean dry and intact. Skin texture and turgor are decreased. absent or decreased hair growth bilateral. nail changes bilateral Neurologic Exam: Comments/Other Findings: Vibratory sensations decreased BL at the MPJ, Protective sensations absent BL tested with 5.07 monofilament, and light, sharp, and temperature sensations intact bl. Muscle Testing of the Extensors, Flexors, Evertors (peroneals), and Invertors (posterior tibialis) BL leg shows 5/5 testing noted. Normal Babinski test noted bl foot after testing Orthopedic Exam: Additional Orthopedic Findings: RT partial great toe and 2nd toe amp noted DIAGNOSIS: Ulcer of right foot with fat layer exposed Right foot pain Pain of toe of right foot Type II diabetes mellitus with neurological manifestations Lymphedema of both lower extremities PVD (peripheral vascular disease) History of amputation of right great toe Amputated toe of right foot Displaced fracture of distal phalanx of left lesser toe(s), subsequent encounter for fracture with routine healing Skin ulcer of right foot including toes with fat layer exposed Non-pressure chronic ulcer of other part of right foot with necrosis of bone Skin ulcer of right foot including toes, limited to breakdown of skin PLAN AND TREATMENT: ASSESMENT & PLAN BL Foot and Ankle and Lower extremity Exam and Evaluation carried out with a treatment plan reviewed with the patient and findings discussed with patient including alternatives, benefits, complications and risks PREVIOUS TESTS / IMAGING / X-RAY EXAM 11/10/22 right foot XR: there is partial great toe noted with no sign of infection. second toe MPJ amp with met head resection noted. 12/22/21 PVR RESULTS: RIGHT SIDE Resting right ankle brachial index: 1.37Right toe brachial index: 0.70Normal ankle brachial index at rest in the right leg. Normal toe brachial index at rest in the right leg. Right ankle: Normal at rest. LEFT SIDE Resting left ankle brachial index: 1.33Left toe brachial index: 0.83Normal ankle brachial index at rest in the left leg. Normal toe brachial index at rest in the left leg. Left ankle: Normal at rest. 11/26/22 CULTURE: Streptococcus mitis-oralis, Staphylococcus epidermidis 11/23/22 left foot XR [facility]: Previous amputation of the second toe and the head of the second metatarsal. Remote healed fracture of the neck of the fifth metatarsal. Previous amputation of the distal phalanx of the great toe. Prominent plantar calcaneal spur. No definite bony destructive change is seen. No soft tissue gas or foreign body. RIGHT 2nd toe amp wound stable. RIGHT lateral hallux ulcer stable. RIGHT 3rd toe tuft ulcer healed today on exam RIGHT 2nd toe amputation site and RIGHT lateral hallux ulcer treated with sharp excisional debridement carried out of the wound with non selective sharp excisional debridement past the dermis into FAT/FASCIA level with use of curette and 15 scalpel blade. Devitalized tissue removed and we then flushed out the wound with wound wash sterile saline. Area numbed with lidocaine gel if sensate prior. RIGHT lateral hallux Excisional debridement carried out of the wound with non selective sharp excisional debridement past the dermis into FAT/FASCIA level with use of curette and 15 scalpel bladed debriding non viable tissue out of wound. We then flushed out the wound with wound and put dressing on. Discussed importance in offloading, proper nutrition including blood sugar control and getting enough protein and vitamins, infection prevention, proper wound care in wound healing. Also discussed detrimental impact of smoking on healing. Reviewed proper wound care with patient. Dressing was applied today. To watch for signs of infection both local and systemic. These were reviewed with the patient. If seen to contact office or go to ED. To continue wound care consisting of washing the wound with soap and water or vashe solution. Then to apply dressing consisting of silver alginate and allevyn to hallux and 3rd toe. To 2nd amputation site ulcer apply ventian rimma periwound and snap vac TODAY applied snap vac to RIGHT SECOND TOE AMPUTATION SITE ULCER and will plan twice a week dressing changes with this. Next plan if there is too much drainage is to order standard wound vac to help fill this void, as well as continue compression. JOSE A applied to wound base Discussed if snap vac fails or if seal breaks or if there is too much drainage patient is to take it down and to continue wound care consisting of washing the wound daily with soap and water. Then to apply dressing consisting of 1/4 iodoform packing, silver alginate, DSD and tubigrip compression She knows she is at risk for further amputation such as TMA and for admission to hospital with infection. Discussed need to keep wounds dry, maceration noted. she finished clindamycin cont HBO no signs infection today, wound appears much better and snap vac functioned well Discussed possible need for regular wound vac. Will see how snap vac works Follow up at [facility] for ulcer check Mon and TH for snap vac changes Ulcer of right foot with fat layer exposed 707.15 L97.512 & Right foot pain 729.5 M79.671 & Pain of toe of right foot 729.5 M79.674 & Type II diabetes mellitus with neurological manifestations 250.60 E11.49 & Lymphedema of both lower extremities 457.1 I89.0 & PVD (peripheral vascular disease) 443.9 I73.9 & History of amputation of right great toe V49.71 Z89.411 & Amputated toe of right foot 895.0 S98.131A & Displaced fracture of distal phalanx of left lesser toe(s), subsequent encounter for fracture with routine healing V54.19 S92.532D & Skin ulcer of right foot including toes with fat layer exposed 707.15 L97.512 & Non-pressure chronic ulcer of other part of right foot with necrosis of bone 707.15 L97.514 & Skin ulcer of right foot including toes, limited to breakdown of skin 707.15 L97.511 documented in this encounter [facility] 12-14-2022 Instructions Dahlia Andrade RN - 12/14/2022 8:15 AM EDT WOUND CARE INSTRUCTIONS- Shade Brambila Wound location: Right lower leg SnapVac to stay in place until your next Wound Center appointment. Please keep the dressing clean and dry. SNAP VAC was applied at today's visit. If the sosa on the SNAP VAC pops out and you are unable to depress the sosa to achieve a good seal or you see a red line on the canister, then please remove the entire dressing and perform the alternate dressing as detailed below. SNAP VAC to be changed twice a week at the Wound Center. Alternate Wound dressings: - Gather supplies - Place down a clean work surface such as new paper towel or newly cleaned towel. - Clean all metal instruments with rubbing alcohol before and after each use. - Plastic garbage bag for old dressing - Wash your hands with soap and water before and after wound care. - Moisten a 4x4 gauze with several drops of Vashe solution and apply to all wounds. Let soak for 5-10 minutes and pat dry with clean gauze. Right 2nd toe amputation site - Gently pack the amputation site with 1/4 inch iodoform ribbon packing to the base of the wound and leave a 1/2 inch tail out of the wound for ease of removal - Apply a piece of silver alginate (felt-like material) over the packing - Cover with dry gauze and secure with roll gauze and tape - Change the dressing daily or as needed to maintain a clean, dry and intact dressing Apply single layer tubi-exterminator termite to bilateral lower legs and then wrap circaids overtop left lower leg Compression wrap must be removed if: it becomes wet or soiled If you have numbness or tingling in your foot or toes If you have increased pain If toes become cold or discolored - Avoid sitting with legs in a dependent position or standing for long periods of time. - Attempt to lay flat and elevate your legs above the level of your heart 2-3 times daily, for 30 minutes at a time. - Be sure to continue walking and/or calf pumps and exercises to mimic writing the alphabet with your foot, as instructed - Control your sodium intake as instructed by provider - Moisturize legs daily and wear circaid wrap on left leg. Put Circaid wrap on in the morning and okay to remove at bedtime, leaving tubi-tobacco wetter size D in place on your right leg. To give your wound the best chance to heal: - Eat three balanced meals daily focusing on the protein - Control your blood sugar. Keep blood sugar less than 200 - Complete your wound care instructions as ordered - Vitamin C 500 mg twice daily - Multiple Vitamin Daily - Drink a protein shake daily - Premiere Clear or Glucerna for Diabetic patients, Nepro for renal patients and premiere for non-renal and non-diabetic patients Report any of the following signs and symptoms of infection to the Wound Center at [phone] or go to the Emergency Department: Fever or chills Increased drainage Green or yellow drainage Foul odor Increased pain Hardness around the wound Redness, warmth or swelling of the surrounding tissue Color change to the wound Evenings / Weekends / Holidays If you call the wound center at the phone number provided above, please leave a detailed message that includes your full name, birthday, and phone number. We are seeing patients during the day, so we will return your call within a 24-48 hr period in the order your call was received. There is not an on-call provider assigned to the wound center. If you have an emergency that needs to be addressed, please go the Urgent Care or the Emergency Room. Thank you for your cooperation and understanding. PLAN/ORDERS: Return to the wound center to see Dr. Hu Pickard DPM or Dr. Alfredo Moore DPM on the following dates: - 12/17/22 at 10:30 am -12/21/22 at 8:00 am -12/24/22 at 8:00 am -12/28/22 at 8:00 am -12/31/22 at 8:00 am 2. Continue aggressive nutritional support to assist wound healing 3. Call [facility] for more supplies, can re-order every 30 days. Phone #: [phone] 4. Continue with HOBT treatment 5. Follow up with your PCP regarding elevated BP Alfredo HAM/sp/ml documented in this encounter [facility] 12-14-2022 Nurse Note Nursing Documentation Pertinent Medical History: DM2, HTN, venous insufficiency, heart failure Wound Etiology according to patient: wounds spontaneously opened up over last 2 months Patient arrived via: ambulatory with cane with a friend Home Care Company/Nursing Facility: N/A Consent captured for debridement per Dr Cici KENNEY and linda until May 2023 Consent captured for debridement per Dr. Neeraj KENNEY and linda until May 2023 Consent captured for debridement per Dr. Alfredo Moore DPM and linda until May 2023 Anticoagulant Therapy: N/A ACTIVE CARE PER PROVIDER: Giovanni Bolanos DPM, Hu HAM, Alfredo Moore DPM WOUND # 1 right anterior proximal lower leg WOUND # 2 right anterior mid lower leg Combined with #3 01-13-2022 WOUND # 3 right anterior distal lower leg Combined with #2 01-13-2022 WOUND #4 right posterior proximal lower leg closed 01-13-2022 WOUND #5 LOCATION: right posterior mid lower leg Closed 01-13-2022 WOUND #6 LOCATION: right posterior distal lower leg Closed 01-13-2022 WOUND #7 Left anterior lower leg - closed 02/17/22 WOUND # 8 Left anterior lateral lower leg closed 01-13-2022 WOUND #9 Left lateral ankle closed 03-24-2022 WOUND #10 Left lateral ankle- posterior closed 03-24-2022 WOUND #11 Left posterior leg proximal closed 03-24-2022 WOUND #12 Left posterior leg distal closed 03-24-2022 WOUND #13 Right Anterior Lateral steiner WOUND # 14_LOCATION: LLE anterior proximal cluster - closed 02/17/22 WOUND # 15 LOCATION: LLE Medial Anterior - closed 02/17/22 WOUND # 16_LOCATION: Left foot dorsum 1st met Head - closed 02/17/22 WOUND # 17 LOCATION: LLE Proximal lateral ankle - closed 02/17/22 WOUND #18 Right Lateral Leg superior closed 03-24-2022 WOUND #19 Right Lateral Leg inferior closed 03-24-2022 WOUND #20 Right Anterior lower leg superior closed 03-24-2022 WOUND #21 Right anterior lower leg Mid closed 03-24-2022 WOUND #22 Right anterior leg closed 03-24-2022 WOUND # 24 - LOCATION: Right Anterior Lower Leg - Cluster (changed to cluster on 11/10/22) CLOSED 11/16/22, Remains closed 11/19/22 WOUND # 27 LOCATION: Right dorsal Foot - intact bulla on arrival - new 11/26/22 Blister dry, intact closed skin 12/03/22, closed 12/07/22 WOUND ASSESSMENT: Refer to Provider's Wound Assessment Note VASCULAR ASSESSMENT BY PROVIDER: See provider wound assessment note CHF History: Yes as of February 2022, Dr. Sadler in Cardiology EDEMA: Right Foot: trace Right Calf: generalized, firm Left Calf: 3+ -not assessed this visit Left Foot 2+-not assessed thisvisit Other: N/A MEASUREMENTS: in cm Right Calf: 32.3 Right Ankle: 22.0 Left Calf: 32.0 - not measured this visit. Pt wearing Circaid wrap Left Ankle: 23.4 - not measured this visit. Pt wearing Circaid wrap Length: 43.0cm WOUND PHOTOGRAPHY: Yes x 2 DEBRIDEMENT PROCEDURE BY PROVIDER: Anesthetic Used: None Other procedure: N/A Specimen collected: N/A WOUND TREATMENT PER MD ORDER: Wounds cleansed by mechanical debridement to allow provider to visualize wound base WOUND # 23 - LOCATION: Right 2nd Toe AMP Site L: 4.0 cm x W: 0.6 cm x D: 1.0 cm 12/14/22 - periwound maceration minimal DEBRIDEMENT by provider: Fascia Cleansed with: Vashe Applied to naya-wound skin: Gentian Rimma, Duoderm, Saul's Seal Applied to wound bed: Jose A, Snap Vac Covered and secured with: ABD, conform Other: vaseline to intact skin WOUND # 25 - LOCATION: Right 3rd Toe Tuft Closed 12/14/22 DEBRIDEMENT by provider: N/A WOUND # 26 - LOCATION: Right Great Toe - Hallux - (new 11/10/22) L: 0.4 cm x W: 0.3 cm x D: 0.3 cm DEBRIDEMENT by provider: Fascia Cleansed with: Vashe Applied to naya-wound skin: skin prep Applied to wound bed: Calcium Alginate Ag Covered and secured with: 4x4's, conform and tape COMPRESSION: Single layer Tubi-Quality Assurance Tester size D to right lower leg, pt's own Circaid present on left lower leg SPECIAL NEEDS: Coordination of care - HBOT in to examine patient & obtain photos Emotional support N/A OR set-up N/A 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 Hu Pickard DPM or Dr. Alfredo Moore DPM on the following dates: - 12/17/22 at 10:30 am -12/21/22 at 8:00 am -12/24/22 at 8:00 am -12/28/22 at 8:00 am -12/31/22 at 8:00 am 2. Continue aggressive nutritional support to assist wound healing 3. Call [facility] for more supplies, can re-order every 30 days. Phone #: [phone] 4. Continue with HOBT treatment 5. Follow up with your PCP regarding elevated BP EDUCATION: The patient/family was instructed how to cleanse the wound(s). Visual demonstration on how to apply the dressing with teach back method. Signs & symptoms of infection were reviewed: Increased redness, swelling, pain, green/yellow drainage, fever and/or chills would all need to be evaluated by a Physician. Patient received typed home-going wound care instructions and has expressed intent to comply. OTHER EDUCATION: Provider discussed wound progression, Education performed regarding lymphedema/edema: Elevation of extremity above the heart for 30 minutes three times daily and as needed Exercise such as writing the ABC's with your toes in the air, walking and/or calf pumps Wearing compression as ordered by provider Diet controlling of sodium as instructed by provider Use of medication to help control edema. UNIVERSAL PROTOCOL / SAFETY CHECKLIST Procedure to be Performed: sharp wound debridement of Right Foot Sign In: 0815 A Moment of CARE was completed. Personnel directly involved with the procedure wore the appropriate PPE (Personal Protective Equipment). Patient/Surrogate Stated/Verified: PATIENT VERIFIED(optional for EMERGENT procedures): Patient name, Date of , Relevant allergies, and The intended procedure Time Out Communication: 0832 Intended patient and procedure match the source documents. Consent documented and matches the intended procedure. Sign Out: 0841 SIGN OUT (optional for EMERGENT procedures): No specimen collected. Post-procedure follow-up management communicated and Plan of Care Visit completed when applicable. Dahlia Andrade RN Current HBOT Status: Active or Complete - see screening below WOUND CENTER HYPERBARIC OXYGEN THERAPY SCREENING 1. Is the patient diabetic? (If No, skip to question 5) Yes 2. Does the patient have a lower extremity wound? Yes 3. Is there exposed/involved tendon or bone? 4. Has the wound been present for 30 days? Yes If Yes to ALL questions above, consult the Hyperbaric Center 5. Has the patient been diagnosed with osteomyelitis? No 6. Has the patient had a previous skin graft or flap at the wound? No 7. Has the patient had or been offered vascular intervention/evaluation? No 8. Does the patient have a wound at an amputation site? Yes 9. Has the patient had radiation therapy at the site of the problem? No If Yes to ANY of questions 5-9, consult the Hyperbaric Center Active in HBO, Dr Benitez in to see pt and take photos. Dahlia Andrade RN documented in this encounter [facility] 12-11-2022 History of Presen t illness Narrative Images from the original note were not included. Problem list reviewed. CHIEF COMPLAINT: check RT amputation site, lateral RT hallux, RT third toe tuft wounds SP Amputation of RT second toe, ID 10/28/2022 DM II A1c 10.3 DLS 10/12/2022 HISTORY OF PRESENT ILLNESS: Here today for POV RT second toe amputation and ID great toe and closure of wound RT lateral great toe. She is finished clindamycin and had snap vac reapplied. Last seen by my colleague Dr Moore. She started HBO. She saw her area field manager who said she has some sleep apnea and said she was good to do HBO. Pain is 0/10. Referred by Dr. Dasilva. 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 PCN allergy HX partial amputation RT great toe 07/08/2022 and LEFT great toe wound rx circade wraps 08/14/22 CURRENT MEDICATIONS: Cephalexin Oral Tablet 500 MG(10/23/2022) Take 1 tablet three times a day for 7 day(s) Ciprofloxacin HCl Oral Tablet 500 MG(10/23/2022) Take 1 tablet twice a day for 7 day(s) diazePAM Oral Tablet 10 MG(02/19/2022) TAKE 1 TABLET 60 MIN BEFORE TEST Ofloxacin Ophthalmic Solution 0.3 %(02/09/2022) PUT 1 DROP IN LEFT EYE 4 TIMES A DAY FLUoxetine HCl Oral Capsule 40 MG(01/26/2022) Enalapril Maleate Oral Tablet 10 MG(01/26/2022) TAKE 1 TABLET BY MOUTH EVERY DAY Atorvastatin Calcium Oral Tablet 40 MG(04/16/2022) TAKE 1 TABLET BY MOUTH EVERYDAY AT BEDTIME Erythromycin Ophthalmic Ointment 5 MG/GM(02/09/2022) APPLY 1 A SMALL AMOUNT LEFT EYE 4 TIMES A DAY Atorvastatin Calcium Oral Tablet 20 MG(01/26/2022) TAKE 1 TABLET BY MOUTH EVERY DAY Jardiance Oral Tablet 25 MG(03/23/2022) Spironolactone Oral Tablet 25 MG(04/17/2022) Furosemide Oral Tablet 40 MG(03/05/2022) TAKE 1 TABLET BY MOUTH EVERY DAY HumuLIN R U-500 KwikPen Subcutaneous Solution Pen-injector 500 UNIT/ML(09/29/2021) INJECT 90 UNITS SUBCUTANEOUSLY AT BREAKFAST TIME, 40 UNTIS AT LUNCH, AND 90 UNITS AT SUPPER metFORMIN HCl Oral Tablet 1000 MG(04/22/2022) ALLERGIES: Band-Aid [place] Surg Dressing Other Bandaging Tape Other PAST MEDICAL HISTORY: Podiatry History remarkable for Foot Numbness, Fungal Nails, Leg or Foot Ulcers. The patient has a past medical history of Arthritis, Depression, DM-Medication Dependent, Poor Circulation. Neuropathy High Cholesterol SURGICAL HISTORY: Hand Tonsils HOSPITALIZATIONS: None Noted SOCIAL HISTORY: Smoking Status: Never smoker; Last Reviewed: 11/02/2022 Alcohol use: social drinker No drug use Social History Reviewed (01/16/2021 11:20:18 AM EST) FAMILY HISTORY: There is a family history of Denial of any knowledge of significant family history. Denial of any knowledge of significant family history Family History Reviewed (01/16/2021 11:20:19 AM EST) REVIEW OF SYSTEMS: Psychologic: Admits to No psych symptoms. Review of systems otherwise negative PHYSICAL EXAMINATION: Vital Signs: Weight 235 lbs; Height 5 ft 8 in; BMI 35.7 12/09/2022 1:37 PM (EST) Temperature 98.6 F; Pulse Rate 100 bpm; Blood Pressure 120 / 80 mm/Hg Vascular Exam: BL Foot DP / PT pulses +2/4 CFT less than 3 seconds to digits, skin temp warm to warm from proximal to distal BL Foot Dermatologic Exam: RIGHT 2nd amputation site wound with flap failure predebridement measures 4.0x0.6x1.4cm and post debridement measures 4.5x0.7x2.5cm with 20:80 granular fibrotic base, surrounding slough, no erythema, no purulence, probe to bone, no malodor, moderate serosanguinous drainage. Into level of FASCIA/FAT RIGHT lateral hallux wound predebridement measures 0.2x0.1x0.1cm and post debridement measures 0.4x0.3x0.3cm with 50:50 granular fibrotic base, surrounding slough, no erythema, no purulence, no probe to bone but NEAR bone, no malodor, moderate serosanguinous drainage. Into level of FAT TISSUE RIGHT 3rd toe tuft healed RIGHT anterior lower leg wound healed. Nails 1-5 left and 3-5 RT Bilateral are thickened, elongated and discolored with subungual debris. The nails are greater than .3mm in thickness. The discoloration is yellowish in color. Innerspaces 1-4bl are clean dry and intact. Skin texture and turgor are decreased. absent or decreased hair growth bilateral. nail changes bilateral Neurologic Exam: Comments/Other Findings: Vibratory sensations decreased BL at the MPJ, Protective sensations absent BL tested with 5.07 monofilament, and light, sharp, and temperature sensations intact bl. Muscle Testing of the Extensors, Flexors, Evertors (peroneals), and Invertors (posterior tibialis) BL leg shows 5/5 testing noted. Normal Babinski test noted bl foot after testing Orthopedic Exam: Additional Orthopedic Findings: RT partial great toe and 2nd toe amp noted DIAGNOSIS: Ulcer of right foot with fat layer exposed Right foot pain Pain of toe of right foot Type II diabetes mellitus with neurological manifestations Lymphedema of both lower extremities PVD (peripheral vascular disease) History of amputation of right great toe Amputated toe of right foot Displaced fracture of distal phalanx of left lesser toe(s), subsequent encounter for fracture with routine healing Skin ulcer of right foot including toes with fat layer exposed Non-pressure chronic ulcer of other part of right foot with necrosis of bone Skin ulcer of right foot including toes, limited to breakdown of skin Surgical wound dehiscence PLAN AND TREATMENT: ASSESMENT & PLAN BL Foot and Ankle and Lower extremity Exam and Evaluation carried out with a treatment plan reviewed with the patient and findings discussed with patient including alternatives, benefits, complications and risks PREVIOUS TESTS / IMAGING / X-RAY EXAM 11/10/22 right foot XR: there is partial great toe noted with no sign of infection. second toe MPJ amp with met head resection noted. 12/22/21 PVR RESULTS: RIGHT SIDE Resting right ankle brachial index: 1.37Right toe brachial index: 0.70Normal ankle brachial index at rest in the right leg. Normal toe brachial index at rest in the right leg. Right ankle: Normal at rest. LEFT SIDE Resting left ankle brachial index: 1.33Left toe brachial index: 0.83Normal ankle brachial index at rest in the left leg. Normal toe brachial index at rest in the left leg. Left ankle: Normal at rest. 11/26/22 CULTURE: Streptococcus mitis-oralis, Staphylococcus epidermidis 11/23/22 left foot XR [facility]: Previous amputation of the second toe and the head of the second metatarsal. Remote healed fracture of the neck of the fifth metatarsal. Previous amputation of the distal phalanx of the great toe. Prominent plantar calcaneal spur. No definite bony destructive change is seen. No soft tissue gas or foreign body. RIGHT 2nd toe amp wound stable. RIGHT 3rd toe ulcer healed. RIGHT lateral hallux ulcer stable. RIGHT 2nd toe amputation site and RIGHT lateral hallux Excisional debridement carried out of the wound with non selective sharp excisional debridement past the dermis into FAT/FASCIA level with use of curette and 15 scalpel bladed debriding non viable tissue out of wound. We then flushed out the wound with wound and put dressing on. Discussed importance in offloading, proper nutrition including blood sugar control and getting enough protein and vitamins, infection prevention, proper wound care in wound healing. Also discussed detrimental impact of smoking on healing. Reviewed proper wound care with patient. Dressing was applied today. To watch for signs of infection both local and systemic. These were reviewed with the patient. If seen to contact office or go to ED. To continue wound care consisting of washing the wound with soap and water or vashe solution. Then to apply dressing consisting of silver alginate and allevyn to hallux. To 2nd amputation site ulcer apply gentian rimma periwound and snap vac TODAY applied snap vac to RIGHT SECOND TOE AMPUTATION SITE ULCER and will plan twice a week dressing changes with this. Next plan if there is too much drainage is to order standard wound vac to help fill this void, as well as continue compression. JOSE A applied to wound base Discussed if snap vac fails or if seal breaks or if there is too much drainage patient is to take it down and to continue wound care consisting of washing the wound daily with soap and water. Then to apply dressing consisting of 1/4 iodoform packing, silver alginate, DSD and tubigrip compression She knows she is at risk for further amputation such as TMA and for admission to hospital with infection. Discussed need to keep wounds dry, maceration noted. finished clindamycin cont HBO no signs infection today, wound appears much better and snap vac functioned well Discussed possible need for regular wound vac. Will see how snap vac works Follow up at [facility] for ulcer check Mon and THUR for snap vac changes Ulcer of right foot with fat layer exposed 707.15 L97.512 & Right foot pain 729.5 M79.671 & Pain of toe of right foot 729.5 M79.674 & Type II diabetes mellitus with neurological manifestations 250.60 E11.49 & Lymphedema of both lower extremities 457.1 I89.0 & PVD (peripheral vascular disease) 443.9 I73.9 & History of amputation of right great toe V49.71 Z89.411 & Amputated toe of right foot 895.0 S98.131A & Displaced fracture of distal phalanx of left lesser toe(s), subsequent encounter for fracture with routine healing V54.19 S92.532D & Skin ulcer of right foot including toes with fat layer exposed 707.15 L97.512 & Non-pressure chronic ulcer of other part of right foot with necrosis of bone 707.15 L97.514 & Skin ulcer of right foot including toes, limited to breakdown of skin 707.15 L97.511 & Surgical wound dehiscence 998.32 T81.31XA documented in this encounter [facility] 12-10-2022 Instructions Amena Leonard RN - 12/10/2022 8:24 AM EDT WOUND CARE INSTRUCTIONS- Shade Brambila Wound location: Right lower leg SnapVac to stay in place until your next Wound Center appointment. Please keep the dressing clean and dry. SNAP VAC was applied at today's visit. If the sosa on the SNAP VAC pops out and you are unable to depress the sosa to achieve a good seal or you see a red line on the canister, then please remove the entire dressing and perform the alternate dressing as detailed below. SNAP VAC to be changed twice a week at the Wound Center. Alternate Wound dressings: - Gather supplies - Place down a clean work surface such as new paper towel or newly cleaned towel. - Clean all metal instruments with rubbing alcohol before and after each use. - Plastic garbage bag for old dressing - Wash your hands with soap and water before and after wound care. - Moisten a 4x4 gauze with several drops of Vashe solution and apply to all wounds. Let soak for 5-10 minutes and pat dry with clean gauze. Right 2nd toe amputation site - Gently pack the amputation site with 1/4 inch iodoform ribbon packing to the base of the wound and leave a 1/2 inch tail out of the wound for ease of removal - Apply a piece of silver alginate (felt-like material) over the packing - Cover with dry gauze and secure with roll gauze and tape - Change the dressing daily or as needed to maintain a clean, dry and intact dressing Apply single layer tubi-exterminator termite to bilateral lower legs and then wrap circaids overtop left lower leg Compression wrap must be removed if: it becomes wet or soiled If you have numbness or tingling in your foot or toes If you have increased pain If toes become cold or discolored - Avoid sitting with legs in a dependent position or standing for long periods of time. - Attempt to lay flat and elevate your legs above the level of your heart 2-3 times daily, for 30 minutes at a time. - Be sure to continue walking and/or calf pumps and exercises to mimic writing the alphabet with your foot, as instructed - Control your sodium intake as instructed by provider - Moisturize legs daily and wear circaid wrap on left leg. Put Circaid wrap on in the morning and okay to remove at bedtime, leaving tubi-tobacco wetter size D in place on your right leg. To give your wound the best chance to heal: - Eat three balanced meals daily focusing on the protein - Control your blood sugar. Keep blood sugar less than 200 - Complete your wound care instructions as ordered - Vitamin C 500 mg twice daily - Multiple Vitamin Daily - Drink a protein shake daily - Premiere Clear or Glucerna for Diabetic patients, Nepro for renal patients and premiere for non-renal and non-diabetic patients Report any of the following signs and symptoms of infection to the Wound Center at [phone] or go to the Emergency Department: Fever or chills Increased drainage Green or yellow drainage Foul odor Increased pain Hardness around the wound Redness, warmth or swelling of the surrounding tissue Color change to the wound Evenings / Weekends / Holidays If you call the wound center at the phone number provided above, please leave a detailed message that includes your full name, birthday, and phone number. We are seeing patients during the day, so we will return your call within a 24-48 hr period in the order your call was received. There is not an on-call provider assigned to the wound center. If you have an emergency that needs to be addressed, please go the Urgent Care or the Emergency Room. Thank you for your cooperation and understanding. PLAN/ORDERS: Return to the wound center to see Dr. Hu Pickard DPM on the following dates: - 12/14/22 at 10:30 am - 12/17/22 at 10:30 am 2. Continue aggressive nutritional support to assist wound healing 3. Call company [facility] for more supplies, can re-order every 30 days. Phone #: . Continue with HOBT treatment 5. Follow up with your PCP regarding elevated BP Hu Pickard DPM/martha/al documented in this encounter [facility] 12-10-2022 Nurse Note Nursing Documentation Pertinent Medical History: DM2, HTN, venous insufficiency, heart failure Wound Etiology according to patient: wounds spontaneously opened up over last 2 months Patient arrived via: ambulatory with cane with a friend Home Care Company/Nursing Facility: N/A Consent captured for debridement per Dr Cici Cooper until May 2023 Consent captured for debridement per Dr. Neeraj Cooper until May 2023 Consent captured for debridement per Allison Hernandez until May 2023 Anticoagulant Therapy: N/A ACTIVE CARE PER PROVIDER: Giovanni Bolanos DPM, Hu Pickard DPM, Alfredo Moore DPM WOUND # 1 right anterior proximal lower leg WOUND # 2 right anterior mid lower leg Combined with #3 01-13-2022 WOUND # 3 right anterior distal lower leg Combined with #2 01-13-2022 WOUND #4 right posterior proximal lower leg closed 01-13-2022 WOUND #5 LOCATION: right posterior mid lower leg Closed 01-13-2022 WOUND #6 LOCATION: right posterior distal lower leg Closed 01-13-2022 WOUND #7 Left anterior lower leg - closed 02/17/22 WOUND # 8 Left anterior lateral lower leg closed 01-13-2022 WOUND #9 Left lateral ankle closed 03-24-2022 WOUND #10 Left lateral ankle- posterior closed 03-24-2022 WOUND #11 Left posterior leg proximal closed 03-24-2022 WOUND #12 Left posterior leg distal closed 03-24-2022 WOUND #13 Right Anterior Lateral steiner WOUND # 14_LOCATION: LLE anterior proximal cluster - closed 02/17/22 WOUND # 15 LOCATION: LLE Medial Anterior - closed 02/17/22 WOUND # 16_LOCATION: Left foot dorsum 1st met Head - closed 02/17/22 WOUND # 17 LOCATION: LLE Proximal lateral ankle - closed 02/17/22 WOUND #18 Right Lateral Leg superior closed 03-24-2022 WOUND #19 Right Lateral Leg inferior closed 03-24-2022 WOUND #20 Right Anterior lower leg superior closed 03-24-2022 WOUND #21 Right anterior lower leg Mid closed 03-24-2022 WOUND #22 Right anterior leg closed 03-24-2022 WOUND # 24 - LOCATION: Right Anterior Lower Leg - Cluster (changed to cluster on 11/10/22) CLOSED 11/16/22, Remains closed 11/19/22 WOUND # 27 LOCATION: Right dorsal Foot - intact bulla on arrival - new 11/26/22 Blister dry, intact closed skin 12/03/22, closed 12/07/22 WOUND ASSESSMENT: Refer to Provider's Wound Assessment Note VASCULAR ASSESSMENT BY PROVIDER: See provider wound assessment note CHF History: Yes as of February 2022, Dr. Sadler in Cardiology EDEMA: Right Foot: trace Right Calf: 1+ Left Calf: 3+ -not assessed this visit Left Foot 2+-not assessed thisvisit Other: N/A MEASUREMENTS: in cm Right Calf: 36.8 Right Ankle: 23.4 Left Calf: 32.0 - not measured this visit. Pt wearing Circaid wrap Left Ankle: 23.4 - not measured this visit. Pt wearing Circaid wrap Length: 43.0cm WOUND PHOTOGRAPHY: Yes x 3 DEBRIDEMENT PROCEDURE BY PROVIDER: Anesthetic Used: None Other procedure: N/A Specimen collected: N/A WOUND TREATMENT PER MD ORDER: Wounds cleansed by mechanical debridement to allow provider to visualize wound base WOUND # 23 - LOCATION: Right 2nd Toe AMP Site L: 4.5 cm x W: 0.7 cm x D: 2.5 cm 12/07/22 - periwound maceration minimal DEBRIDEMENT by provider: Fascia Cleansed with: Vashe Applied to naya-wound skin: Gentian Rimma, Duoderm, Saul's Seal Applied to wound bed: Jose A, Snap Vac Covered and secured with: ABD, conform Other: WOUND # 25 - LOCATION: Right 3rd Toe Tuft L:cm x W:cm x D:cm DEBRIDEMENT by provider: N/A WOUND # 26 - LOCATION: Right Great Toe - Hallux - (new 11/10/22) L: 0.4 cm x W: 0.3 cm x D: 0.3 cm DEBRIDEMENT by provider: Fascia Cleansed with: Vashe Applied to naya-wound skin: Applied to wound bed: Calcium Alginate Ag Covered and secured with: 4x4's, conform and tape COMPRESSION: Single layer Tubi-Quality Assurance Tester size D to right lower leg, pt's own Circaid present on left lower leg SPECIAL NEEDS: Coordination of care - HBOT in to examine patient & obtain photos Emotional support N/A OR set-up N/A 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 Hu Pickard DPM on the following dates: - 12/14/22 at 10:30 am - 12/17/22 at 10:30 am 2. Continue aggressive nutritional support to assist wound healing 3. Call [employer] for more supplies, can re-order every 30 days. Phone #: [phone] 4. Continue with HOBT treatment 5. Follow up with your PCP regarding elevated BP EDUCATION: The patient/family was instructed how to cleanse the wound(s). Visual demonstration on how to apply the dressing with teach back method. Signs & symptoms of infection were reviewed: Increased redness, swelling, pain, green/yellow drainage, fever and/or chills would all need to be evaluated by a Physician. Patient received typed home-going wound care instructions and has expressed intent to comply. OTHER EDUCATION: Dr. Moore discussed wound improvement, continue snap vac adding jose a to base. Education performed regarding lymphedema/edema: Elevation of extremity above the heart for 30 minutes three times daily and as needed Exercise such as writing the ABC's with your toes in the air, walking and/or calf pumps Wearing compression as ordered by provider Diet controlling of sodium as instructed by provider Use of medication to help control edema. UNIVERSAL PROTOCOL / SAFETY CHECKLIST Procedure to be Performed: sharp wound debridement of Right Foot Sign In: 0838 A Moment of CARE was completed. Personnel directly involved with the procedure wore the appropriate PPE (Personal Protective Equipment). Patient/Surrogate Stated/Verified: PATIENT VERIFIED(optional for EMERGENT procedures): Patient name, Date of , Relevant allergies, and The intended procedure Time Out Communication: 0707 Intended patient and procedure match the source documents. Consent documented and matches the intended procedure. Sign Out: 0842 SIGN OUT (optional for EMERGENT procedures): No specimen collected. Amena Leonard RN/zully Current HBOT Status: Active or Complete - see screening below WOUND CENTER HYPERBARIC OXYGEN THERAPY SCREENING 1. Is the patient diabetic? (If No, skip to question 5) Yes 2. Does the patient have a lower extremity wound? Yes 3. Is there exposed/involved tendon or bone? 4. Has the wound been present for 30 days? Yes If Yes to ALL questions above, consult the Hyperbaric Center 5. Has the patient been diagnosed with osteomyelitis? No 6. Has the patient had a previous skin graft or flap at the wound? No 7. Has the patient had or been offered vascular intervention/evaluation? No 8. Does the patient have a wound at an amputation site? Yes 9. Has the patient had radiation therapy at the site of the problem? No If Yes to ANY of questions 5-9, consult the Hyperbaric Center Amena Leonard RN/zully documented in this encounter [facility] 12-08-2022 History of Presen t illness Narrative Images from the original note were not included. Problem list reviewed. CHIEF COMPLAINT: check RT amputation site, lateral RT hallux, RT third toe tuft wounds SP Amputation of RT second toe, ID 10/28/2022 DM II A1c 10.3 DLS 10/12/2022 HISTORY OF PRESENT ILLNESS: Here today for POV RT second toe amputation and ID great toe and closure of wound RT lateral great toe. She is finishing clindamycin and had snap vac reappled. We stopped the snap vac one week ago due to malfunctioning and increased maceration. Last seen by my colleague Dr Pickard. She started HBO. She saw her area field manager who said she has some sleep apnea and said she was good to do HBO. Pain is 5/10. referred by Dr. 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 PCN allergy HX partial amputation RT great toe 07/08/2022 and LEFT great toe wound rx circade wraps 08/14/22 CURRENT MEDICATIONS: Cephalexin Oral Tablet 500 MG(10/23/2022) Take 1 tablet three times a day for 7 day(s) Ciprofloxacin HCl Oral Tablet 500 MG(10/23/2022) Take 1 tablet twice a day for 7 day(s) diazePAM Oral Tablet 10 MG(02/19/2022) TAKE 1 TABLET 60 MIN BEFORE TEST Ofloxacin Ophthalmic Solution 0.3 %(02/09/2022) PUT 1 DROP IN LEFT EYE 4 TIMES A DAY FLUoxetine HCl Oral Capsule 40 MG(01/26/2022) Enalapril Maleate Oral Tablet 10 MG(01/26/2022) TAKE 1 TABLET BY MOUTH EVERY DAY Atorvastatin Calcium Oral Tablet 40 MG(04/16/2022) TAKE 1 TABLET BY MOUTH EVERYDAY AT BEDTIME Erythromycin Ophthalmic Ointment 5 MG/GM(02/09/2022) APPLY 1 A SMALL AMOUNT LEFT EYE 4 TIMES A DAY Atorvastatin Calcium Oral Tablet 20 MG(01/26/2022) TAKE 1 TABLET BY MOUTH EVERY DAY Jardiance Oral Tablet 25 MG(03/23/2022) Spironolactone Oral Tablet 25 MG(04/17/2022) Furosemide Oral Tablet 40 MG(03/05/2022) TAKE 1 TABLET BY MOUTH EVERY DAY HumuLIN R U-500 KwikPen Subcutaneous Solution Pen-injector 500 UNIT/ML(09/29/2021) INJECT 90 UNITS SUBCUTANEOUSLY AT BREAKFAST TIME, 40 UNTIS AT LUNCH, AND 90 UNITS AT SUPPER metFORMIN HCl Oral Tablet 1000 MG(04/22/2022) ALLERGIES: Band-Aid [place] Surg Dressing Other Bandaging Tape Other PAST MEDICAL HISTORY: Podiatry History remarkable for Foot Numbness, Fungal Nails, Leg or Foot Ulcers. The patient has a past medical history of Arthritis, Depression, DM-Medication Dependent, Poor Circulation. Neuropathy High Cholesterol SURGICAL HISTORY: Hand Tonsils HOSPITALIZATIONS: None Noted SOCIAL HISTORY: Smoking Status: Never smoker; Last Reviewed: 11/02/2022 Alcohol use: social drinker No drug use Social History Reviewed (01/16/2021 11:20:18 AM EST) FAMILY HISTORY: There is a family history of Denial of any knowledge of significant family history. Denial of any knowledge of significant family history Family History Reviewed (01/16/2021 11:20:19 AM EST) REVIEW OF SYSTEMS: Psychologic: Admits to No psych symptoms. Review of systems otherwise negative PHYSICAL EXAMINATION: Vital Signs: Weight 235 lbs; Height 5 ft 8 in; BMI 35.7 12/03/2022 10:07 AM (EST) Temperature 98.6 F; Pulse Rate 100 bpm; Blood Pressure 120 / 80 mm/Hg Vascular Exam: BL Foot DP / PT pulses +2/4 CFT less than 3 seconds to digits, skin temp warm to warm from proximal to distal BL Foot Dermatologic Exam: RIGHT 2nd amputation site wound predebridement measures 4.0x0.4x1.2cm and post debridement measures 4.4x0.5x2.0cm with 20:80 granular fibrotic base, surrounding slough, no erythema, no purulence, probe to bone, no malodor, moderate serosanguinous drainage. Into level of BONE RIGHT lateral hallux wound predebridement measures 0.1x0.1x0.1cm and post debridement measures 0.4x0.2x0.3cm with 50:50 granular fibrotic base, surrounding slough, no erythema, no purulence, no probe to bone but NEAR bone, no malodor, moderate serosanguinous drainage. Into level of FAT TISSUE RIGHT 3rd toe tuft wound predebridement measures 0.3x0.2x0.1cm and post debridement measures 0.4x0.3x0.2cm with 50:50 granular fibrotic base, surrounding callus, no erythema, no purulence, no probe to bone, no malodor, moderate serosanguinous drainage. Into level of SUBCUTANEOUS TISSUE RIGHT anterior lower leg wound healed. Nails 1-5 left and 3-5 RT Bilateral are thickened, elongated and discolored with subungual debris. The nails are greater than .3mm in thickness. The discoloration is yellowish in color. Innerspaces 1-4bl are clean dry and intact. Skin texture and turgor are decreased. absent or decreased hair growth bilateral. nail changes bilateral Neurologic Exam: Comments/Other Findings: Vibratory sensations decreased BL at the MPJ, Protective sensations absent BL tested with 5.07 monofilament, and light, sharp, and temperature sensations intact bl. Muscle Testing of the Extensors, Flexors, Evertors (peroneals), and Invertors (posterior tibialis) BL leg shows 5/5 testing noted. Normal Babinski test noted bl foot after testing Orthopedic Exam: Additional Orthopedic Findings: RT partial great toe and 2nd toe amp noted DIAGNOSIS: Ulcer of right foot with fat layer exposed Right foot pain Pain of toe of right foot Type II diabetes mellitus with neurological manifestations Lymphedema of both lower extremities PVD (peripheral vascular disease) History of amputation of right great toe Amputated toe of right foot Displaced fracture of distal phalanx of left lesser toe(s), subsequent encounter for fracture with routine healing Skin ulcer of right foot including toes with fat layer exposed Non-pressure chronic ulcer of other part of right foot with necrosis of bone Skin ulcer of right foot including toes, limited to breakdown of skin PLAN AND TREATMENT: ASSESMENT & PLAN BL Foot and Ankle and Lower extremity Exam and Evaluation carried out with a treatment plan reviewed with the patient and findings discussed with patient including alternatives, benefits, complications and risks PREVIOUS TESTS / IMAGING / X-RAY EXAM Previous left foot XR: left heel and there is no fractures noted spurring noted heel plantar fracture second toe distal phalanx with no displacement. no signs om to distal left hallux phalanx 11/10/22 right foot XR: there is partial great toe noted with no sign of infection. second toe MPJ amp with met head resection noted. 12/22/21 PVR RESULTS: RIGHT SIDE Resting right ankle brachial index: 1.37Right toe brachial index: 0.70Normal ankle brachial index at rest in the right leg. Normal toe brachial index at rest in the right leg. Right ankle: Normal at rest. LEFT SIDE Resting left ankle brachial index: 1.33Left toe brachial index: 0.83Normal ankle brachial index at rest in the left leg. Normal toe brachial index at rest in the left leg. Left ankle: Normal at rest. 10/28/22 OR: 2nd toe amp site Cx- Toby sewell. Path: 2nd toe acute OM, 2nd met head no OM. 11/11/22 left foot XR: left heel and there is no fractures noted spurring noted heel plantar fracture second toe distal phalanx with no displacement. no signs om to distal left hallux phalanx 11/26/22 CULTURE: Many Streptococcus mitis-oralis group Abnormal Many Staphylococcus epidermidis Abnormal 11/23/22 left foot XR [facility]: Previous amputation of the second toe and the head of the second metatarsal. Remote healed fracture of the neck of the fifth metatarsal. Previous amputation of the distal phalanx of the great toe. Prominent plantar calcaneal spur. No definite bony destructive change is seen. No soft tissue gas or foreign body. RIGHT 2nd toe amp wound stable. RIGHT 3rd toe ulcer stable. RIGHT lateral hallux ulcer stable. RIGHT 3rd toe tuft ulcer treated with sharp excisional debridement carried out of the wound with non selective sharp excisional debridement past the dermis into SUBCUTANEOUS level with use of curette and 15 scalpel blade. Devitalized tissue removed. We then flushed out the wound with wound wash sterile saline. Area numbed with lidocaine gel if sensate prior. RIGHT 2nd toe amputation site and RIGHT lateral hallux ulcer treated with sharp excisional debridement carried out of the wound with non selective sharp excisional debridement past the dermis into BONE level with use of curette and 15 scalpel blade. Devitalized tissue removed and we then flushed out the wound with wound wash sterile saline. Area numbed with lidocaine gel if sensate prior. RIGHT lateral hallux Excisional debridement carried out of the wound with non selective sharp excisional debridement past the dermis into FAT/FASCIA level with use of curette and 15 scalpel bladed debriding non viable tissue out of wound. We then flushed out the wound with wound and put dressing on. Discussed importance in offloading, proper nutrition including blood sugar control and getting enough protein and vitamins, infection prevention, proper wound care in wound healing. Also discussed detrimental impact of smoking on healing. Reviewed proper wound care with patient. Dressing was applied today. To watch for signs of infection both local and systemic. These were reviewed with the patient. If seen to contact office or go to ED. To continue wound care consisting of washing the wound with soap and water or vashe solution. Then to apply dressing consisting of silver alginate and allevyn to hallux and 3rd toe. To 2nd amputation site ulcer apply ventian rimma periwound and snap vac TODAY applied snap vac to RIGHT SECOND TOE AMPUTATION SITE ULCER and will plan twice a week dressing changes with this. Next plan if there is too much drainage is to order standard wound vac to help fill this void, as well as continue compression. JOSE A applied to wound base Discussed if snap vac fails or if seal breaks or if there is too much drainage patient is to take it down and to continue wound care consisting of washing the wound daily with soap and water. Then to apply dressing consisting of 1/4 iodoform packing, silver alginate, DSD and tubigrip compression She knows she is at risk for further amputation such as TMA and for admission to hospital with infection. Discussed need to keep wounds dry, maceration noted. continue clindamycin cont HBO no signs infection today, wound appears much better and snap vac functioned well Discussed possible need for regular wound vac. Will see how snap vac works Follow up at [facility] for ulcer check Mon and THUR for snap vac changes Ulcer of right foot with fat layer exposed 707.15 L97.512 & Right foot pain 729.5 M79.671 & Pain of toe of right foot 729.5 M79.674 & Type II diabetes mellitus with neurological manifestations 250.60 E11.49 & Lymphedema of both lower extremities 457.1 I89.0 & PVD (peripheral vascular disease) 443.9 I73.9 & History of amputation of right great toe V49.71 Z89.411 & Amputated toe of right foot 895.0 S98.131A & Displaced fracture of distal phalanx of left lesser toe(s), subsequent encounter for fracture with routine healing V54.19 S92.532D & Skin ulcer of right foot including toes with fat layer exposed 707.15 L97.512 & Non-pressure chronic ulcer of other part of right foot with necrosis of bone 707.15 L97.514 & Skin ulcer of right foot including toes, limited to breakdown of skin 707.15 L97.511 documented in this encounter [facility] 12-07-2022 Nurse Note Nursing Documentation Pertinent Medical History: DM2, HTN, venous insufficiency, heart failure Wound Etiology according to patient: wounds spontaneously opened up over last 2 months Patient arrived via: ambulatory with cane with a friend Home Care Company/Nursing Facility: N/A Consent captured for debridement per Dr Cici KENNEY and linda until May 2023 Consent captured for debridement per Dr. Neeraj KENNEY and linda until May 2023 Consent captured for debridement per Dr. Alfredo Moore DPM and linda until May 2023 Anticoagulant Therapy: N/A ACTIVE CARE PER PROVIDER: Giovanni Bolanos DPM, Hu Pickard DPM, Alfredo Moore DPM WOUND # 1 right anterior proximal lower leg WOUND # 2 right anterior mid lower leg Combined with #3 01-13-2022 WOUND # 3 right anterior distal lower leg Combined with #2 01-13-2022 WOUND #4 right posterior proximal lower leg closed 01-13-2022 WOUND #5 LOCATION: right posterior mid lower leg Closed 01-13-2022 WOUND #6 LOCATION: right posterior distal lower leg Closed 01-13-2022 WOUND #7 Left anterior lower leg - closed 02/17/22 WOUND # 8 Left anterior lateral lower leg closed 01-13-2022 WOUND #9 Left lateral ankle closed 03-24-2022 WOUND #10 Left lateral ankle- posterior closed 03-24-2022 WOUND #11 Left posterior leg proximal closed 03-24-2022 WOUND #12 Left posterior leg distal closed 03-24-2022 WOUND #13 Right Anterior Lateral steiner WOUND # 14_LOCATION: LLE anterior proximal cluster - closed 02/17/22 WOUND # 15 LOCATION: LLE Medial Anterior - closed 02/17/22 WOUND # 16_LOCATION: Left foot dorsum 1st met Head - closed 02/17/22 WOUND # 17 LOCATION: LLE Proximal lateral ankle - closed 02/17/22 WOUND #18 Right Lateral Leg superior closed 03-24-2022 WOUND #19 Right Lateral Leg inferior closed 03-24-2022 WOUND #20 Right Anterior lower leg superior closed 03-24-2022 WOUND #21 Right anterior lower leg Mid closed 03-24-2022 WOUND #22 Right anterior leg closed 03-24-2022 WOUND # 24 - LOCATION: Right Anterior Lower Leg - Cluster (changed to cluster on 11/10/22) CLOSED 11/16/22, Remains closed 11/19/22 WOUND # 27 LOCATION: Right dorsal Foot - intact bulla on arrival - new 11/26/22 Blister dry, intact closed skin 12/03/22, closed 12/07/22 WOUND ASSESSMENT: Refer to Provider's Wound Assessment Note VASCULAR ASSESSMENT BY PROVIDER: See provider wound assessment note CHF History: Yes as of February 2022, Dr. Sadler in Cardiology EDEMA: Right Foot: trace Right Calf: 1+ Left Calf: 3+ -not assessed this visit Left Foot 2+-not assessed thisvisit Other: N/A MEASUREMENTS: in cm Right Calf: 33.2 Right Ankle: 23.4 Left Calf: 32.0 - not measured this visit. Pt wearing Circaid wrap Left Ankle: 23.4 - not measured this visit. Pt wearing Circaid wrap Length: 43.0cm WOUND PHOTOGRAPHY: Yes x 3 DEBRIDEMENT PROCEDURE BY PROVIDER: Anesthetic Used: None Other procedure: N/A Specimen collected: N/A WOUND TREATMENT PER MD ORDER: Wounds cleansed by mechanical debridement to allow provider to visualize wound base WOUND # 23 - LOCATION: Right 2nd Toe AMP Site L: 4.4 cm x W: 0.5 cm x D: 1.2 cm 12/07/22 - periwound maceration minimal DEBRIDEMENT by provider: fascia Cleansed with: Vashe Applied to naya-wound skin: Gentian Rimma, Duoderm, Saul's Seal Applied to wound bed: Snap Vac Covered and secured with: ABD, conform Other: WOUND # 25 - LOCATION: Right 3rd Toe Tuft L: 0.4 cm x W: 0.3 cm x D: 0.1 cm DEBRIDEMENT by provider: SQ Cleansed with: Vashe Applied to naya-wound skin: skin prep Applied to wound bed: Calcium Alginate Ag Covered and secured with: 4x4's, conform and tape WOUND # 26 - LOCATION: Right Great Toe - Hallux - (new 11/10/22) L: 0.4 cm x W: 0.2 cm x D: 0.3 cm DEBRIDEMENT by provider: Fat/fascia Cleansed with: Vashe Applied to naya-wound skin: Applied to wound bed: Calcium Alginate Ag Covered and secured with: 4x4's, conform and tape COMPRESSION: Single layer Tubi-Quality Assurance Tester size D to right lower leg, pt's own Circaid present on left lower leg SPECIAL NEEDS: Coordination of care - HBOT in to examine patient & obtain photos Emotional support N/A OR set-up N/A 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 Hu Pickard DPM on the following dates: - 12/10/22 at 10:30 am - 12/14/22 at 10:30 am - 12/17/22 at 10:30 am 2. Continue aggressive nutritional support to assist wound healing 3. Call [employer] for more supplies, can re-order every 30 days. Phone #: [phone] 4. Continue with HOBT treatment EDUCATION: The patient/family was instructed how to cleanse the wound(s). Visual demonstration on how to apply the dressing with teach back method. Signs & symptoms of infection were reviewed: Increased redness, swelling, pain, green/yellow drainage, fever and/or chills would all need to be evaluated by a Physician. Patient received typed home-going wound care instructions and has expressed intent to comply. OTHER EDUCATION: Dr. Moore discussed wound improvement, will continue same wound care. Education performed regarding lymphedema/edema: Elevation of extremity above the heart for 30 minutes three times daily and as needed Exercise such as writing the ABC's with your toes in the air, walking and/or calf pumps Wearing compression as ordered by provider Diet controlling of sodium as instructed by provider Use of medication to help control edema. UNIVERSAL PROTOCOL / SAFETY CHECKLIST Procedure to be Performed: sharp wound debridement Sign In: 1115 A Moment of CARE was completed. Personnel directly involved with the procedure wore the appropriate PPE (Personal Protective Equipment). Patient/Surrogate Stated/Verified: PATIENT VERIFIED(optional for EMERGENT procedures): Patient name, Date of , Relevant allergies, and The intended procedure Time Out Communication: 1115 Intended patient and procedure match the source documents. Consent documented and matches the intended procedure. Sign Out: 1123 SIGN OUT (optional for EMERGENT procedures): No specimen collected. Shelley Kenny RN/rivka Current HBOT Status: Active or Complete - see screening below WOUND CENTER HYPERBARIC OXYGEN THERAPY SCREENING 1. Is the patient diabetic? (If No, skip to question 5) Yes 2. Does the patient have a lower extremity wound? Yes 3. Is there exposed/involved tendon or bone? 4. Has the wound been present for 30 days? Yes If Yes to ALL questions above, consult the Hyperbaric Center 5. Has the patient been diagnosed with osteomyelitis? No 6. Has the patient had a previous skin graft or flap at the wound? No 7. Has the patient had or been offered vascular intervention/evaluation? No 8. Does the patient have a wound at an amputation site? Yes 9. Has the patient had radiation therapy at the site of the problem? No If Yes to ANY of questions 5-9, consult the Hyperbaric Center Shelley Kenny RN/rivka documented in this encounter [facility] 12-07-2022 Instructions Shelley Kenny RN - 12/07/2022 10:47 AM EDT WOUND CARE INSTRUCTIONS- Shade Brambila Wound location: Right lower leg SnapVac to stay in place until your next Wound Center appointment. Please keep the dressing clean and dry. SNAP VAC was applied at today's visit. If the sosa on the SNAP VAC pops out and you are unable to depress the sosa to achieve a good seal or you see a red line on the canister, then please remove the entire dressing and perform the alternate dressing as detailed below. SNAP VAC to be changed twice a week at the Wound Center. Alternate Wound dressings: - Gather supplies - Place down a clean work surface such as new paper towel or newly cleaned towel. - Clean all metal instruments with rubbing alcohol before and after each use. - Plastic garbage bag for old dressing - Wash your hands with soap and water before and after wound care. - Moisten a 4x4 gauze with several drops of Vashe solution and apply to all wounds. Let soak for 5-10 minutes and pat dry with clean gauze. Right 2nd toe amputation site - Gently pack the amputation site with 1/4 inch iodoform ribbon packing to the base of the wound and leave a 1/2 inch tail out of the wound for ease of removal - Apply a piece of silver alginate (felt-like material) over the packing - Cover with dry gauze and secure with roll gauze and tape - Change the dressing daily or as needed to maintain a clean, dry and intact dressing Right 3rd Toe Tuft & Right Great Toe: - Apply a piece of silver alginate (felt-like material) over both wounds - Cover with dry gauze and secure with roll gauze and tape - Change the dressing daily or as needed to maintain a clean, dry and intact dressing Apply single layer tubi-exterminator termite to bilateral lower legs and then wrap circaids overtop left lower leg Compression wrap must be removed if: it becomes wet or soiled If you have numbness or tingling in your foot or toes If you have increased pain If toes become cold or discolored - Avoid sitting with legs in a dependent position or standing for long periods of time. - Attempt to lay flat and elevate your legs above the level of your heart 2-3 times daily, for 30 minutes at a time. - Be sure to continue walking and/or calf pumps and exercises to mimic writing the alphabet with your foot, as instructed - Control your sodium intake as instructed by provider - Moisturize legs daily and wear circaid wrap on left leg. Put Circaid wrap on in the morning and okay to remove at bedtime, leaving tubi-tobacco wetter size D in place on your right leg. To give your wound the best chance to heal: - Eat three balanced meals daily focusing on the protein - Control your blood sugar. Keep blood sugar less than 200 - Complete your wound care instructions as ordered - Vitamin C 500 mg twice daily - Multiple Vitamin Daily - Drink a protein shake daily - Premiere Clear or Glucerna for Diabetic patients, Nepro for renal patients and premiere for non-renal and non-diabetic patients Report any of the following signs and symptoms of infection to the Wound Center at [phone] or go to the Emergency Department: Fever or chills Increased drainage Green or yellow drainage Foul odor Increased pain Hardness around the wound Redness, warmth or swelling of the surrounding tissue Color change to the wound Evenings / Weekends / Holidays If you call the wound center at the phone number provided above, please leave a detailed message that includes your full name, birthday, and phone number. We are seeing patients during the day, so we will return your call within a 24-48 hr period in the order your call was received. There is not an on-call provider assigned to the wound center. If you have an emergency that needs to be addressed, please go the Urgent Care or the Emergency Room. Thank you for your cooperation and understanding. PLAN/ORDERS: Return to the wound center to see Dr. Hu Pickard DPM on the following dates: - 12/10/22 at 10:30 am - 12/14/22 at 10:30 am - 12/17/22 at 10:30 am 2. Continue aggressive nutritional support to assist wound healing 3. Call [employer] for more supplies, can re-order every 30 days. Phone #: [phone] 4. Continue with HOBT treatment Dr. Alfredo Moore, PABLITO/carla/rivka documented in this encounter [facility] 12-04-2022 History of Presen t illness Narrative Images from the original note were not included. Problem list reviewed. CHIEF COMPLAINT: check RT amputation site, lateral RT hallux, RT third toe tuft wounds SP Amputation of RT second toe, ID 10/28/2022 DM II A1c 10.3 DLS 10/12/2022 HISTORY OF PRESENT ILLNESS: Here today for POV RT second toe amputation and ID great toe and closure of wound RT lateral great toe. She is finishing clindamycin and doing packing changes. We stopped the snap vac one week ago due to malfunctioning and increased maceration. Last seen by my colleague Dr Moore. She starts HBO today. She saw her area field manager who said she has some sleep apnea and said she was good to do HBO. Pain is 5/10. referred by Dr. 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 PCN allergy HX partial amputation RT great toe 07/08/2022 and LEFT great toe wound rx circade wraps 08/14/22 CURRENT MEDICATIONS: Cephalexin Oral Tablet 500 MG(10/23/2022) Take 1 tablet three times a day for 7 day(s) Ciprofloxacin HCl Oral Tablet 500 MG(10/23/2022) Take 1 tablet twice a day for 7 day(s) diazePAM Oral Tablet 10 MG(02/19/2022) TAKE 1 TABLET 60 MIN BEFORE TEST Ofloxacin Ophthalmic Solution 0.3 %(02/09/2022) PUT 1 DROP IN LEFT EYE 4 TIMES A DAY FLUoxetine HCl Oral Capsule 40 MG(01/26/2022) Enalapril Maleate Oral Tablet 10 MG(01/26/2022) TAKE 1 TABLET BY MOUTH EVERY DAY Atorvastatin Calcium Oral Tablet 40 MG(04/16/2022) TAKE 1 TABLET BY MOUTH EVERYDAY AT BEDTIME Erythromycin Ophthalmic Ointment 5 MG/GM(02/09/2022) APPLY 1 A SMALL AMOUNT LEFT EYE 4 TIMES A DAY Atorvastatin Calcium Oral Tablet 20 MG(01/26/2022) TAKE 1 TABLET BY MOUTH EVERY DAY Jardiance Oral Tablet 25 MG(03/23/2022) Spironolactone Oral Tablet 25 MG(04/17/2022) Furosemide Oral Tablet 40 MG(03/05/2022) TAKE 1 TABLET BY MOUTH EVERY DAY HumuLIN R U-500 KwikPen Subcutaneous Solution Pen-injector 500 UNIT/ML(09/29/2021) INJECT 90 UNITS SUBCUTANEOUSLY AT BREAKFAST TIME, 40 UNTIS AT LUNCH, AND 90 UNITS AT SUPPER metFORMIN HCl Oral Tablet 1000 MG(04/22/2022) ALLERGIES: Band-Aid [place] Surg Dressing Other Bandaging Tape Other PAST MEDICAL HISTORY: Podiatry History remarkable for Foot Numbness, Fungal Nails, Leg or Foot Ulcers. The patient has a past medical history of Arthritis, Depression, DM-Medication Dependent, Poor Circulation. Neuropathy High Cholesterol SURGICAL HISTORY: Hand Tonsils HOSPITALIZATIONS: None Noted SOCIAL HISTORY: Smoking Status: Never smoker; Last Reviewed: 11/02/2022 Alcohol use: social drinker No drug use Social History Reviewed (01/16/2021 11:20:18 AM EST) FAMILY HISTORY: There is a family history of Denial of any knowledge of significant family history. Denial of any knowledge of significant family history Family History Reviewed (01/16/2021 11:20:19 AM EST) REVIEW OF SYSTEMS: Psychologic: Admits to No psych symptoms. Review of systems otherwise negative PHYSICAL EXAMINATION: Vital Signs: Weight 235 lbs; Height 5 ft 8 in; BMI 35.7 12/01/2022 10:21 AM (EST) Temperature 98.6 F; Pulse Rate 100 bpm; Blood Pressure 120 / 80 mm/Hg Vascular Exam: BL Foot DP / PT pulses +2/4 CFT less than 3 seconds to digits, skin temp warm to warm from proximal to distal BL Foot Dermatologic Exam: RIGHT 2nd amputation site wound predebridement measures 4.5x0.4x2.0cm and post debridement measures 5x0.6x2.5cm with 20:80 granular fibrotic base, surrounding slough, no erythema, no purulence, probe to bone, no malodor, moderate serosanguinous drainage. Into level of BONE RIGHT lateral hallux wound predebridement measures 0.1x0.1x0.1cm and post debridement measures 0.7x0.4x0.4cm with 50:50 granular fibrotic base, surrounding slough, no erythema, no purulence, no probe to bone but NEAR bone, no malodor, moderate serosanguinous drainage. Into level of FAT TISSUE RIGHT 3rd toe tuft wound predebridement measures 0.3x0.2x0.1cm and post debridement measures 0.4x0.4x0.2cm with 50:50 granular fibrotic base, surrounding callus, no erythema, no purulence, no probe to bone, no malodor, moderate serosanguinous drainage. Into level of SUBCUTANEOUS TISSUE RIGHT anterior lower leg wound healed. Nails 1-5 left and 3-5 RT Bilateral are thickened, elongated and discolored with subungual debris. The nails are greater than .3mm in thickness. The discoloration is yellowish in color. Innerspaces 1-4bl are clean dry and intact. Skin texture and turgor are decreased. absent or decreased hair growth bilateral. nail changes bilateral Neurologic Exam: Comments/Other Findings: Vibratory sensations decreased BL at the MPJ, Protective sensations absent BL tested with 5.07 monofilament, and light, sharp, and temperature sensations intact bl. Muscle Testing of the Extensors, Flexors, Evertors (peroneals), and Invertors (posterior tibialis) BL leg shows 5/5 testing noted. Normal Babinski test noted bl foot after testing Orthopedic Exam: Additional Orthopedic Findings: RT partial great toe and 2nd toe amp noted DIAGNOSIS: Ulcer of right foot with fat layer exposed Right foot pain Pain of toe of right foot Type II diabetes mellitus with neurological manifestations Lymphedema of both lower extremities PVD (peripheral vascular disease) History of amputation of right great toe Amputated toe of right foot Displaced fracture of distal phalanx of left lesser toe(s), subsequent encounter for fracture with routine healing Skin ulcer of right foot including toes with fat layer exposed Non-pressure chronic ulcer of other part of right foot with necrosis of bone Skin ulcer of right foot including toes, limited to breakdown of skin PLAN AND TREATMENT: ASSESMENT & PLAN BL Foot and Ankle and Lower extremity Exam and Evaluation carried out with a treatment plan reviewed with the patient and findings discussed with patient including alternatives, benefits, complications and risks PREVIOUS TESTS / IMAGING / X-RAY EXAM Previous left foot XR: left heel and there is no fractures noted spurring noted heel plantar fracture second toe distal phalanx with no displacement. no signs om to distal left hallux phalanx 11/10/22 right foot XR: there is partial great toe noted with no sign of infection. second toe MPJ amp with met head resection noted. 12/22/21 PVR RESULTS: RIGHT SIDE Resting right ankle brachial index: 1.37Right toe brachial index: 0.70Normal ankle brachial index at rest in the right leg. Normal toe brachial index at rest in the right leg. Right ankle: Normal at rest. LEFT SIDE Resting left ankle brachial index: 1.33Left toe brachial index: 0.83Normal ankle brachial index at rest in the left leg. Normal toe brachial index at rest in the left leg. Left ankle: Normal at rest. 10/28/22 OR: 2nd toe amp site Cx- Toby sewell. Path: 2nd toe acute OM, 2nd met head no OM. 11/11/22 left foot XR: left heel and there is no fractures noted spurring noted heel plantar fracture second toe distal phalanx with no displacement. no signs om to distal left hallux phalanx 11/26/22 CULTURE: Many Streptococcus mitis-oralis group Abnormal Many Staphylococcus epidermidis Abnormal 11/23/22 left foot XR [facility]: Previous amputation of the second toe and the head of the second metatarsal. Remote healed fracture of the neck of the fifth metatarsal. Previous amputation of the distal phalanx of the great toe. Prominent plantar calcaneal spur. No definite bony destructive change is seen. No soft tissue gas or foreign body. RIGHT 2nd toe amp wound stable. RIGHT 3rd toe ulcer stable. RIGHT lateral hallux ulcer stable. RIGHT 3rd toe tuft ulcer treated with sharp excisional debridement carried out of the wound with non selective sharp excisional debridement past the dermis into SUBCUTANEOUS level with use of curette and 15 scalpel blade. Devitalized tissue removed. We then flushed out the wound with wound wash sterile saline. Area numbed with lidocaine gel if sensate prior. RIGHT 2nd toe amputation site and RIGHT lateral hallux ulcer treated with sharp excisional debridement carried out of the wound with non selective sharp excisional debridement past the dermis into BONE level with use of curette and 15 scalpel blade. Devitalized tissue removed and we then flushed out the wound with wound wash sterile saline. Area numbed with lidocaine gel if sensate prior. RIGHT lateral hallux Excisional debridement carried out of the wound with non selective sharp excisional debridement past the dermis into FAT/FASCIA level with use of curette and 15 scalpel bladed debriding non viable tissue out of wound. We then flushed out the wound with wound and put dressing on. Discussed importance in offloading, proper nutrition including blood sugar control and getting enough protein and vitamins, infection prevention, proper wound care in wound healing. Also discussed detrimental impact of smoking on healing. Reviewed proper wound care with patient. Dressing was applied today. To watch for signs of infection both local and systemic. These were reviewed with the patient. If seen to contact office or go to ED. To continue wound care consisting of washing the wound with soap and water or vashe solution. Then to apply dressing consisting of silver alginate and allevyn to hallux and 3rd toe. To 2nd amputation site ulcer apply ventian rimma periwound and snap vac TODAY applied snap vac to RIGHT SECOND TOE AMPUTATION SITE ULCER and will plan twice a week dressing changes with this. Next plan if there is too much drainage is to order standard wound vac to help fill this void, as well as continue compression. JOSE A applied to wound base Discussed if snap vac fails or if seal breaks or if there is too much drainage patient is to take it down and to continue wound care consisting of washing the wound daily with soap and water. Then to apply dressing consisting of 1/4 iodoform packing, silver alginate, DSD and tubigrip compression She knows she is at risk for further amputation such as TMA and for admission to hospital with infection. Discussed need to keep wounds dry, maceration noted. XR right foot reviewed continue clindamycin cont HBO Discussed possible need for regular wound vac. Will see how snap vac works Follow up at [facility] for ulcer check Mon and THUR for snap vac changes Ulcer of right foot with fat layer exposed 707.15 L97.512 & Right foot pain 729.5 M79.671 & Pain of toe of right foot 729.5 M79.674 & Type II diabetes mellitus with neurological manifestations 250.60 E11.49 & Lymphedema of both lower extremities 457.1 I89.0 & PVD (peripheral vascular disease) 443.9 I73.9 & History of amputation of right great toe V49.71 Z89.411 & Amputated toe of right foot 895.0 S98.131A & Displaced fracture of distal phalanx of left lesser toe(s), subsequent encounter for fracture with routine healing V54.19 S92.532D & Skin ulcer of right foot including toes with fat layer exposed 707.15 L97.512 & Non-pressure chronic ulcer of other part of right foot with necrosis of bone 707.15 L97.514 & Skin ulcer of right foot including toes, limited to breakdown of skin 707.15 L97.511 documented in this encounter [facility] 12-03-2022 Instructions Rosa Maria Lopes RN - 12/03/2022 8:46 AM EDT WOUND CARE INSTRUCTIONS- Shade A [place] Wound location: Right lower leg SnapVac to stay in place until your next Wound Center appointment. Please keep the dressing clean and dry. SNAP VAC was applied at today's visit. If the sosa on the SNAP VAC pops out and you are unable to depress the sosa to achieve a good seal or you see a red line on the canister, then please remove the entire dressing and perform the alternate dressing as detailed below. SNAP VAC to be changed twice a week at the Wound Center. Alternate Wound dressings: - Gather supplies - Place down a clean work surface such as new paper towel or newly cleaned towel. - Clean all metal instruments with rubbing alcohol before and after each use. - Plastic garbage bag for old dressing - Wash your hands with soap and water before and after wound care. - Moisten a 4x4 gauze with several drops of Vashe solution and apply to all wounds. Let soak for 5-10 minutes and pat dry with clean gauze. Right 2nd toe amputation site - Gently pack the amputation site with 1/4 inch iodoform ribbon packing to the base of the wound and leave a 1/2 inch tail out of the wound for ease of removal - Apply a piece of silver alginate (felt-like material) over the packing - Cover with dry gauze and secure with roll gauze and tape - Change the dressing daily or as needed to maintain a clean, dry and intact dressing Right 3rd Toe Tuft & Right Great Toe: - Apply a piece of silver alginate (felt-like material) over both wounds - Cover with dry gauze and secure with roll gauze and tape - Change the dressing daily or as needed to maintain a clean, dry and intact dressing Apply single layer tubi-tobacco wetter size E to bilateral lower legs and then wrap circaids overtop. Compression wrap must be removed if: it becomes wet or soiled If you have numbness or tingling in your foot or toes If you have increased pain If toes become cold or discolored - Avoid sitting with legs in a dependent position or standing for long periods of time. - Attempt to lay flat and elevate your legs above the level of your heart 2-3 times daily, for 30 minutes at a time. - Be sure to continue walking and/or calf pumps and exercises to mimic writing the alphabet with your foot, as instructed - Control your sodium intake as instructed by provider - Moisturize legs daily and wear circaid wrap on left leg. Put Circaid wrap on in the morning and okay to remove at bedtime, leaving tubi-tobacco wetter size E in place on your right leg. To give your wound the best chance to heal: - Eat three balanced meals daily focusing on the protein - Control your blood sugar. Keep blood sugar less than 200 - Complete your wound care instructions as ordered - Vitamin C 500 mg twice daily - Multiple Vitamin Daily - Drink a protein shake daily - Premiere Clear or Glucerna for Diabetic patients, Nepro for renal patients and premiere for non-renal and non-diabetic patients Report any of the following signs and symptoms of infection to the Wound Center at [phone] or go to the Emergency Department: Fever or chills Increased drainage Green or yellow drainage Foul odor Increased pain Hardness around the wound Redness, warmth or swelling of the surrounding tissue Color change to the wound Evenings / Weekends / Holidays If you call the wound center at the phone number provided above, please leave a detailed message that includes your full name, birthday, and phone number. We are seeing patients during the day, so we will return your call within a 24-48 hr period in the order your call was received. There is not an on-call provider assigned to the wound center. If you have an emergency that needs to be addressed, please go the Urgent Care or the Emergency Room. Thank you for your cooperation and understanding. PLAN/ORDERS: Return to the wound center to see Dr. Hu Pickard DPM on the following dates: - 12/07/22 at 10:30 am - 12/10/22 at 10:30 am - 12/14/22 at 10:30 am - 12/17/22 at 10:30 am 2. Continue aggressive nutritional support to assist wound healing 3. Call [employer] for more supplies, can re-order every 30 days. Phone #: . Continue with HOBT treatment Hu Pickard DPM/BB/TC documented in this encounter [facility] 12-03-2022 Nurse Note Nursing Documentation Pertinent Medical History: DM2, HTN, venous insufficiency, heart failure Wound Etiology according to patient: wounds spontaneously opened up over last 2 months Patient arrived via: ambulatory with cane with a friend Home Care Company/Nursing Facility: N/A Consent captured for debridement per Dr Cici KENNEY and linda until May 2023 Consent captured for debridement per Dr. Neeraj KENNEY and linda until May 2023 Consent captured for debridement per Dr. Alfredo Moore DPM and linda until May 2023 Anticoagulant Therapy: N/A ACTIVE CARE PER PROVIDER: Giovanni Bolanos DPM, Hu Pickard DPM, Alfredo Moore DPM WOUND # 1 right anterior proximal lower leg WOUND # 2 right anterior mid lower leg Combined with #3 01-13-2022 WOUND # 3 right anterior distal lower leg Combined with #2 01-13-2022 WOUND #4 right posterior proximal lower leg closed 01-13-2022 WOUND #5 LOCATION: right posterior mid lower leg Closed 01-13-2022 WOUND #6 LOCATION: right posterior distal lower leg Closed 01-13-2022 WOUND #7 Left anterior lower leg - closed 02/17/22 WOUND # 8 Left anterior lateral lower leg closed 01-13-2022 WOUND #9 Left lateral ankle closed 03-24-2022 WOUND #10 Left lateral ankle- posterior closed 03-24-2022 WOUND #11 Left posterior leg proximal closed 03-24-2022 WOUND #12 Left posterior leg distal closed 03-24-2022 WOUND #13 Right Anterior Lateral steiner WOUND # 14_LOCATION: LLE anterior proximal cluster - closed 02/17/22 WOUND # 15 LOCATION: LLE Medial Anterior - closed 02/17/22 WOUND # 16_LOCATION: Left foot dorsum 1st met Head - closed 02/17/22 WOUND # 17 LOCATION: LLE Proximal lateral ankle - closed 02/17/22 WOUND #18 Right Lateral Leg superior closed 03-24-2022 WOUND #19 Right Lateral Leg inferior closed 03-24-2022 WOUND #20 Right Anterior lower leg superior closed 03-24-2022 WOUND #21 Right anterior lower leg Mid closed 03-24-2022 WOUND #22 Right anterior leg closed 03-24-2022 WOUND # 24 - LOCATION: Right Anterior Lower Leg - Cluster (changed to cluster on 11/10/22) CLOSED 11/16/22, Remains closed 11/19/22 WOUND ASSESSMENT: Refer to Provider's Wound Assessment Note VASCULAR ASSESSMENT BY PROVIDER: See provider wound assessment note CHF History: Yes as of February 2022, Dr. Sadler in Cardiology EDEMA: Right Foot: trace Right Calf: trace Left Calf: 3+ -not assessed 12/03/22 visit Left Foot 2+-not assessed 12/03/22 visit Other: N/A MEASUREMENTS: in cm Right Calf: 34.5 Right Ankle: 22.5 Left Calf: 32.0 - not measured at 12/03/22 visit. Pt wearing Circaid wrap Left Ankle: 23.4 - not measured at 12/03/22 visit. Pt wearing Circaid wrap Length: 43.0cm - Not measured at 11/30/22 visit WOUND PHOTOGRAPHY: Yes x 1 photo DEBRIDEMENT PROCEDURE BY PROVIDER: Anesthetic Used: None Other procedure: N/A Specimen collected: N/A WOUND TREATMENT PER MD ORDER: Wounds cleansed by mechanical debridement to allow provider to visualize wound base WOUND # 23 - LOCATION: Right 2nd Toe AMP Site L: 5.0 cm x W: 0.6 cm x D: 2.5 cm 11/30/22 - periwound maceration minimal DEBRIDEMENT by provider: Bone Cleansed with: Vashe Applied to naya-wound skin: Gentian Rimma, Duoderm, Saul's Seal Applied to wound bed: Snap Vac Covered and secured with: ABD, conform Other: WOUND # 25 - LOCATION: Right 3rd Toe Tuft L: 0.4 cm x W: 0.4 cm x D: 0.2 cm DEBRIDEMENT by provider: SQ Cleansed with: Vashe Applied to naya-wound skin: skin prep Applied to wound bed: Calcium Alginate Ag Covered and secured with: 4x4's, conform and tape WOUND # 26 - LOCATION: Right Great Toe - Hallux - (new 11/10/22) L: 0.7 cm x W: 0.4 cm x D: 0.4 cm DEBRIDEMENT by provider: Fat Cleansed with: Vashe Applied to naya-wound skin: Applied to wound bed: Calcium Alginate Ag Covered and secured with: 4x4's, conform and tape WOUND # 27 LOCATION: Right dorsal Foot - intact bulla on arrival - new 11/26/22 Blister dry, intact closed skin 12/03/22 COMPRESSION: Single layer Tubi-Quality Assurance Tester size E to right lower leg, pt's own Circaid present on left lower leg SPECIAL NEEDS: Coordination of care - HBOT in to discuss with patient Emotional support N/A OR set-up N/A 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 Hu Pickard DPGricel on the following dates: - 12/07/22 at 10:30 am - 12/10/22 at 10:30 am - 12/14/22 at 10:30 am - 12/17/22 at 10:30 am 2. Continue aggressive nutritional support to assist wound healing 3. Call [employer] for more supplies, can re-order every 30 days. Phone #: [phone] 4. Continue with HOBT treatment EDUCATION: The patient/family was instructed how to cleanse the wound(s). Visual demonstration on how to apply the dressing with teach back method. Signs & symptoms of infection were reviewed: Increased redness, swelling, pain, green/yellow drainage, fever and/or chills would all need to be evaluated by a Physician. Patient received typed home-going wound care instructions and has expressed intent to comply. OTHER EDUCATION: Provider discussed wound progression, dressing treatment, HBO, wound culture results and to continue what is left of her prescribed antibiotic. Dr. Pickard Education performed regarding lymphedema/edema: Elevation of extremity above the heart for 30 minutes three times daily and as needed Exercise such as writing the ABC's with your toes in the air, walking and/or calf pumps Wearing compression as ordered by provider Diet controlling of sodium as instructed by provider Use of medication to help control edema. UNIVERSAL PROTOCOL / SAFETY CHECKLIST Procedure to be Performed: sharp wound debridement Sign In: 0845 A Moment of CARE was completed. Personnel directly involved with the procedure wore the appropriate PPE (Personal Protective Equipment). Patient/Surrogate Stated/Verified: PATIENT VERIFIED(optional for EMERGENT procedures): Patient name, Date of , Relevant allergies, and The intended procedure Time Out Communication: 9426 Intended patient and procedure match the source documents. Consent documented and matches the intended procedure. Sign Out: 0902 SIGN OUT (optional for EMERGENT procedures): No specimen collected. Current HBOT Status: Active or Complete - see screening below WOUND CENTER HYPERBARIC OXYGEN THERAPY SCREENING 1. Is the patient diabetic? (If No, skip to question 5) Yes 2. Does the patient have a lower extremity wound? Yes 3. Is there exposed/involved tendon or bone? 4. Has the wound been present for 30 days? Yes If Yes to ALL questions above, consult the Hyperbaric Center 5. Has the patient been diagnosed with osteomyelitis? No 6. Has the patient had a previous skin graft or flap at the wound? No 7. Has the patient had or been offered vascular intervention/evaluation? No 8. Does the patient have a wound at an amputation site? Yes 9. Has the patient had radiation therapy at the site of the problem? No If Yes to ANY of questions 5-9, consult the Hyperbaric Center Rosa Maria Lopes RN documented in this encounter [facility] 12-01-2022 History of Presen t illness Narrative Images from the original note were not included. Problem list reviewed. CHIEF COMPLAINT: RT amputation site, RT hallux, RT third toe tuft wounds SP Amputation of RT second toe, ID 10/28/2022 DM II A1c 10.3 DLS 10/12/2022 HISTORY OF PRESENT ILLNESS: Here today for POV RT second toe amputation and ID great toe and closure of wound RT lateral great toe. She is finishing clindamycin and doing packing changes. We stopped the snap vac one week ago due to malfunctioning and increased maceration. i am seeing for Dr. Pickard today. Pain is 5/10. referred by Dr. 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 PCN allergy HX partial amputation RT great toe 07/08/2022 and LEFT great toe wound rx circade wraps 08/14/22 CURRENT MEDICATIONS: Cephalexin Oral Tablet 500 MG(10/23/2022) Take 1 tablet three times a day for 7 day(s) Ciprofloxacin HCl Oral Tablet 500 MG(10/23/2022) Take 1 tablet twice a day for 7 day(s) diazePAM Oral Tablet 10 MG(02/19/2022) TAKE 1 TABLET 60 MIN BEFORE TEST Ofloxacin Ophthalmic Solution 0.3 %(02/09/2022) PUT 1 DROP IN LEFT EYE 4 TIMES A DAY FLUoxetine HCl Oral Capsule 40 MG(01/26/2022) Enalapril Maleate Oral Tablet 10 MG(01/26/2022) TAKE 1 TABLET BY MOUTH EVERY DAY Atorvastatin Calcium Oral Tablet 40 MG(04/16/2022) TAKE 1 TABLET BY MOUTH EVERYDAY AT BEDTIME Erythromycin Ophthalmic Ointment 5 MG/GM(02/09/2022) APPLY 1 A SMALL AMOUNT LEFT EYE 4 TIMES A DAY Atorvastatin Calcium Oral Tablet 20 MG(01/26/2022) TAKE 1 TABLET BY MOUTH EVERY DAY Jardiance Oral Tablet 25 MG(03/23/2022) Spironolactone Oral Tablet 25 MG(04/17/2022) Furosemide Oral Tablet 40 MG(03/05/2022) TAKE 1 TABLET BY MOUTH EVERY DAY HumuLIN R U-500 KwikPen Subcutaneous Solution Pen-injector 500 UNIT/ML(09/29/2021) INJECT 90 UNITS SUBCUTANEOUSLY AT BREAKFAST TIME, 40 UNTIS AT LUNCH, AND 90 UNITS AT SUPPER metFORMIN HCl Oral Tablet 1000 MG(04/22/2022) ALLERGIES: Band-Aid [place] Surg Dressing Other Bandaging Tape Other PAST MEDICAL HISTORY: Podiatry History remarkable for Foot Numbness, Fungal Nails, Leg or Foot Ulcers. The patient has a past medical history of Arthritis, Depression, DM-Medication Dependent, Poor Circulation. Neuropathy High Cholesterol SURGICAL HISTORY: Hand Tonsils HOSPITALIZATIONS: None Noted SOCIAL HISTORY: Smoking Status: Never smoker; Last Reviewed: 11/02/2022 Alcohol use: social drinker No drug use Social History Reviewed (01/16/2021 11:20:18 AM EST) FAMILY HISTORY: There is a family history of Denial of any knowledge of significant family history. Denial of any knowledge of significant family history Family History Reviewed (01/16/2021 11:20:19 AM EST) REVIEW OF SYSTEMS: Psychologic: Admits to No psych symptoms. Review of systems otherwise negative PHYSICAL EXAMINATION: Vital Signs: Weight 235 lbs; Height 5 ft 8 in; BMI 35.7 11/25/2022 3:07 PM (EST) Temperature 98.6 F; Pulse Rate 100 bpm; Blood Pressure 120 / 80 mm/Hg Vascular Exam: BL Foot DP / PT pulses +2/4 CFT less than 3 seconds to digits, skin temp warm to warm from proximal to distal BL Foot Dermatologic Exam: RIGHT 2nd amputation site wound predebridement measures 4x0.4x1.0cm and post debridement measures 4.2x0.5x1.6cm with 20:80 granular fibrotic base, surrounding slough, no erythema, no purulence, no probe to bone, no malodor, moderate serosanguinous drainage. Into level of BONE RIGHT lateral hallux wound predebridement measures 0.1x0.1x0.1cm and post debridement measures 0.4x0.3x0.3cm with 50:50 granular fibrotic base, surrounding slough, no erythema, no purulence, no probe to bone, no malodor, moderate serosanguinous drainage. Into level of FAT TISSUE RIGHT 3rd toe tuft wound predebridement measures 0.1x0.1x0.1cm and post debridement measures 0.3x0.3x0.2cm with 50:50 granular fibrotic base, surrounding callus, no erythema, no purulence, no probe to bone, no malodor, moderate serosanguinous drainage. Into level of SUBCUTANEOUS TISSUE RIGHT anterior lower leg wound healed. Nails 1-5 left and 3-5 RT Bilateral are thickened, elongated and discolored with subungual debris. The nails are greater than .3mm in thickness. The discoloration is yellowish in color. Innerspaces 1-4bl are clean dry and intact. Skin texture and turgor are decreased. absent or decreased hair growth bilateral. nail changes bilateral Neurologic Exam: Comments/Other Findings: Vibratory sensations decreased BL at the MPJ, Protective sensations absent BL tested with 5.07 monofilament, and light, sharp, and temperature sensations intact bl. Muscle Testing of the Extensors, Flexors, Evertors (peroneals), and Invertors (posterior tibialis) BL leg shows 5/5 testing noted. Normal Babinski test noted bl foot after testing Orthopedic Exam: Additional Orthopedic Findings: RT partial great toe and 2nd toe amp noted DIAGNOSIS: Ulcer of right foot with fat layer exposed Right foot pain Pain of toe of right foot Type II diabetes mellitus with neurological manifestations Lymphedema of both lower extremities PVD (peripheral vascular disease) History of amputation of right great toe Amputated toe of right foot Chronic ulcer of right great toe, limited to breakdown of skin Displaced fracture of distal phalanx of left lesser toe(s), subsequent encounter for fracture with routine healing Skin ulcer of right foot including toes with fat layer exposed PLAN AND TREATMENT: ASSESMENT & PLAN BL Foot and Ankle and Lower extremity Exam and Evaluation carried out with a treatment plan reviewed with the patient and findings discussed with patient including alternatives, benefits, complications and risks PREVIOUS TESTS / IMAGING / X-RAY EXAM Previous left foot XR: left heel and there is no fractures noted spurring noted heel plantar fracture second toe distal phalanx with no displacement. no signs om to distal left hallux phalanx 11/10/22 right foot XR: there is partial great toe noted with no sign of infection. second toe MPJ amp with met head resection noted. 12/22/21 PVR RESULTS: RIGHT SIDE Resting right ankle brachial index: 1.37Right toe brachial index: 0.70Normal ankle brachial index at rest in the right leg. Normal toe brachial index at rest in the right leg. Right ankle: Normal at rest. LEFT SIDE Resting left ankle brachial index: 1.33Left toe brachial index: 0.83Normal ankle brachial index at rest in the left leg. Normal toe brachial index at rest in the left leg. Left ankle: Normal at rest. 10/28/22 OR: 2nd toe amp site Cx- Finegoldia magna. Path: 2nd toe acute OM, 2nd met head no OM. 11/11/22 left foot XR: left heel and there is no fractures noted spurring noted heel plantar fracture second toe distal phalanx with no displacement. no signs om to distal left hallux phalanx 11/26/22 CULTURE: Many Streptococcus mitis-oralis group Abnormal Many Staphylococcus epidermidis Abnormal RIGHT 2nd toe amp wound worsened. RIGHT 3rd toe ulcer stable. RIGHT lateral hallux ulcer stable. RIGHT 3rd toe tuft ulcer treated with sharp excisional debridement carried out of the wound with non selective sharp excisional debridement past the dermis into SUBCUTANEOUS level with use of curette and 15 scalpel blade. Devitalized tissue removed. We then flushed out the wound with wound wash sterile saline. Area numbed with lidocaine gel if sensate prior. RIGHT 2nd toe amputation site and RIGHT lateral hallux ulcer treated with sharp excisional debridement carried out of the wound with non selective sharp excisional debridement past the dermis into BONE level with use of curette and 15 scalpel blade. Devitalized tissue removed and we then flushed out the wound with wound wash sterile saline. Area numbed with lidocaine gel if sensate prior. RIGHT lateral hallux Excisional debridement carried out of the wound with non selective sharp excisional debridement past the dermis into FAT/FASCIA level with use of curette and 15 scalpel bladed debriding non viable tissue out of wound. We then flushed out the wound with wound and put dressing on. Discussed importance in offloading, proper nutrition including blood sugar control and getting enough protein and vitamins, infection prevention, proper wound care in wound healing. Also discussed detrimental impact of smoking on healing. Reviewed proper wound care with patient. Dressing was applied today. To watch for signs of infection both local and systemic. These were reviewed with the patient. If seen to contact office or go to ED. To continue wound care consisting of washing the wound with soap and water or vashe solution. Then to apply dressing consisting of jose a and allevyn to halux and 3rd toe. To 2nd amputation site ulcer apply ventian rimma periwound, PREVIOUSLY applied snap vac to RIGHT SECOND TOE AMPUTATION SITE ULCER and will plan twice a week dressing changes with this. Next plan if there is too much drainage is to order standard wound vac to help fill this void, as well as continue compression. JOSE A applied to wound base Discussed if snap vac fails or if seal breaks or if there is too much drainage patient is to take it down and to continue wound care consisting of washing the wound daily with soap and water. Then to apply dressing consisting of 1/4 iodoform packing, silver alginate, DSD and tubigrip compression She knows she is at risk for further amputation such as TMA and for admission to hospital with infection. Discussed need to keep wounds dry, maceration noted. Rx XR right foot- has yet to get continue clindamycin TODAY HBO consult Follow up at [facility] for ulcer check Mon and THUR for snap vac changes and check XR Possibly resume snap vac application THURS. macerated and sloughing improved today. applied gentian rimma and iodoform packing and aglinate dressing changes for her to do daily until resume. cont oral antibiotics. wounds stable today Ulcer of right foot with fat layer exposed 707.15 L97.512 & Right foot pain 729.5 M79.671 & Pain of toe of right foot 729.5 M79.674 & Type II diabetes mellitus with neurological manifestations 250.60 E11.49 & Lymphedema of both lower extremities 457.1 I89.0 & PVD (peripheral vascular disease) 443.9 I73.9 & History of amputation of right great toe V49.71 Z89.411 & Amputated toe of right foot 895.0 S98.131A & Chronic ulcer of right great toe, limited to breakdown of skin 707.15 L97.511 & Displaced fracture of distal phalanx of left lesser toe(s), subsequent encounter for fracture with routine healing V54.19 S92.532D & Skin ulcer of right foot including toes with fat layer exposed 707.15 L97.512 documented in this encounter [facility] 11-30-2022 Instructions Dahlia Andrade RN - 11/30/2022 9:11 AM EDT WOUND CARE INSTRUCTIONS- Shade [place] Wound location: Right lower leg Wound dressings: - Gather supplies - Place down a clean work surface such as new paper towel or newly cleaned towel. - Clean all metal instruments with rubbing alcohol before and after each use. - Plastic garbage bag for old dressing - Wash your hands with soap and water before and after wound care. - Moisten a 4x4 gauze with several drops of Vashe solution and apply to all wounds. Let soak for 5-10 minutes and pat dry with clean gauze. Right 2nd toe amputation site - Gently pack the amputation site with 1/4 inch iodoform ribbon packing to the base of the wound and leave a 1/2 inch tail out of the wound for ease of removal - Apply a piece of silver alginate (felt-like material) over the packing - Cover with dry gauze and secure with roll gauze and tape - Change the dressing daily or as needed to maintain a clean, dry and intact dressing Right 3rd Toe Tuft & Right Great Toe: - Apply a piece of silver alginate (felt-like material) over both wounds - Cover with dry gauze and secure with roll gauze and tape - Change the dressing daily or as needed to maintain a clean, dry and intact dressing Apply single layer tubi-tobacco wetter size E to bilateral lower legs and then wrap circaids overtop. Compression wrap must be removed if: it becomes wet or soiled If you have numbness or tingling in your foot or toes If you have increased pain If toes become cold or discolored - Avoid sitting with legs in a dependent position or standing for long periods of time. - Attempt to lay flat and elevate your legs above the level of your heart 2-3 times daily, for 30 minutes at a time. - Be sure to continue walking and/or calf pumps and exercises to mimic writing the alphabet with your foot, as instructed - Control your sodium intake as instructed by provider - Moisturize legs daily and wear circaid wrap on left leg. Put Circaid wrap on in the morning and okay to remove at bedtime, leaving tubi-tobacco wetter size E in place on your right leg. To give your wound the best chance to heal: - Eat three balanced meals daily focusing on the protein - Control your blood sugar. Keep blood sugar less than 200 - Complete your wound care instructions as ordered - Vitamin C 500 mg twice daily - Multiple Vitamin Daily - Drink a protein shake daily - Premiere Clear or Glucerna for Diabetic patients, Nepro for renal patients and premiere for non-renal and non-diabetic patients Report any of the following signs and symptoms of infection to the Wound Center at [phone] or go to the Emergency Department: Fever or chills Increased drainage Green or yellow drainage Foul odor Increased pain Hardness around the wound Redness, warmth or swelling of the surrounding tissue Color change to the wound Evenings / Weekends / Holidays If you call the wound center at the phone number provided above, please leave a detailed message that includes your full name, birthday, and phone number. We are seeing patients during the day, so we will return your call within a 24-48 hr period in the order your call was received. There is not an on-call provider assigned to the wound center. If you have an emergency that needs to be addressed, please go the Urgent Care or the Emergency Room. Thank you for your cooperation and understanding. PLAN/ORDERS: Return to the wound center to see Dr. Hu Pickard DPM on the following dates: - 12/03/22 at 8:30 am - 12/07/22 at 10:30 am - 12/10/22 at 10:30 am - 12/14/22 at 10:30 am - 12/17/22 at 10:30 am 2. Continue aggressive nutritional support to assist wound healing 3. Call [facility] for more supplies, can re-order every 30 days. Phone #: . Continue the current dressing changes, we will re-evaluate the need for the Snap VAC at your next visit. 5. Waiting for insurance approval for HBO. Dr Alfredo Moore DPM/sp/rivka documented in this encounter [facility] 11-30-2022 Nurse Note Nursing Documentation Pertinent Medical History: DM2, HTN, venous insufficiency, heart failure Wound Etiology according to patient: wounds spontaneously opened up over last 2 months Patient arrived via: ambulatory with cane with a friend Home Care Company/Nursing Facility: N/A Consent captured for debridement per Dr Cici KENNEY and linda until May 2023 Consent captured for debridement per Dr. Neeraj KENNEY and linda until May 2023 Consent captured for debridement per Dr. Alfredo Moore DPM and linda until May 2023 Anticoagulant Therapy: N/A ACTIVE CARE PER PROVIDER: Giovanni Bolanos DPM, Hu HAM, Alfredo Moore DPM WOUND # 1 right anterior proximal lower leg WOUND # 2 right anterior mid lower leg Combined with #3 01-13-2022 WOUND # 3 right anterior distal lower leg Combined with #2 01-13-2022 WOUND #4 right posterior proximal lower leg closed 01-13-2022 WOUND #5 LOCATION: right posterior mid lower leg Closed 01-13-2022 WOUND #6 LOCATION: right posterior distal lower leg Closed 01-13-2022 WOUND #7 Left anterior lower leg - closed 02/17/22 WOUND # 8 Left anterior lateral lower leg closed 01-13-2022 WOUND #9 Left lateral ankle closed 03-24-2022 WOUND #10 Left lateral ankle- posterior closed 03-24-2022 WOUND #11 Left posterior leg proximal closed 03-24-2022 WOUND #12 Left posterior leg distal closed 03-24-2022 WOUND #13 Right Anterior Lateral steiner WOUND # 14_LOCATION: LLE anterior proximal cluster - closed 02/17/22 WOUND # 15 LOCATION: LLE Medial Anterior - closed 02/17/22 WOUND # 16_LOCATION: Left foot dorsum 1st met Head - closed 02/17/22 WOUND # 17 LOCATION: LLE Proximal lateral ankle - closed 02/17/22 WOUND #18 Right Lateral Leg superior closed 03-24-2022 WOUND #19 Right Lateral Leg inferior closed 03-24-2022 WOUND #20 Right Anterior lower leg superior closed 03-24-2022 WOUND #21 Right anterior lower leg Mid closed 03-24-2022 WOUND #22 Right anterior leg closed 03-24-2022 WOUND # 24 - LOCATION: Right Anterior Lower Leg - Cluster (changed to cluster on 11/10/22) CLOSED 11/16/22, Remains closed 11/19/22 WOUND ASSESSMENT: Refer to Provider's Wound Assessment Note VASCULAR ASSESSMENT BY PROVIDER: See provider wound assessment note CHF History: Yes as of February 2022, Dr. Sadler in Cardiology EDEMA: Right Foot: 1+ Right Calf: 1+ Left Calf: 3+ -not assessed 11/30/22 visit Left Foot 2+-not assessed 11/30/22 visit Other: N/A MEASUREMENTS: in cm Right Calf: 36.0 Right Ankle: 23.5 Left Calf: 32.0 - not measured at 11/30/22 visit. Pt wearing Circaid wrap Left Ankle: 23.4 - not measured at 11/30/22 visit. Pt wearing Circaid wrap Length: 43.0cm - Not measured at 11/30/22 visit WOUND PHOTOGRAPHY: Yes x 2 photos DEBRIDEMENT PROCEDURE BY PROVIDER: Anesthetic Used: None Other procedure: N/A Specimen collected: N/A WOUND TREATMENT PER MD ORDER: Wounds cleansed by mechanical debridement to allow provider to visualize wound base WOUND # 23 - LOCATION: Right 2nd Toe AMP Site L: 4.2 cm x W: 0.5 cm x D: 1.6 cm 11/30/22 - periwound maceration minimal DEBRIDEMENT by provider: Bone intact bulla distal to the wound WOUND # 25 - LOCATION: Right 3rd Toe Tuft L: 0.3 cm x W: 0.3 cm x D: 0.2 cm DEBRIDEMENT by provider: SQ WOUND # 26 - LOCATION: Right Great Toe - Hallux - (new 11/10/22) L: 0.4 cm x W: 0.3 cm x D: 0.3 cm DEBRIDEMENT by provider: Fat Cleansed with: Vashe Applied to naya-wound skin: Gentian rimma to maceration Applied to wound bed: 1/4 inch iodoform packing to amp site (#23) only, silver alginate over all wounds, 4x4, ABD pad Covered and secured with: conform and tape WOUND # 27 LOCATION: Right dorsal Foot - intact bulla on arrival - new 11/26/22 Blister dry, intact closed skin 11/30/22 COMPRESSION: Single layer Tubi-Quality Assurance Tester size E to right lower leg, pt's own Circaid present on left lower leg SPECIAL NEEDS: Coordination of care - HBOT in to discuss with patient Emotional support N/A OR set-up N/A Yarn Examiner N/A Incontinence needs N/A DISCHARGED in stable condition to: Home ambulatory with cane PLAN/ORDERS: Return to the wound center to see Dr. Hu Pickard DPM on the following dates: - 12/03/22 at 8:30 am - 12/07/22 at 10:30 am - 12/10/22 at 10:30 am - 12/14/22 at 10:30 am - 12/17/22 at 10:30 am 2. Continue aggressive nutritional support to assist wound healing 3. Call [facility] for more supplies, can re-order every 30 days. Phone #: [phone] 4. Continue the current dressing changes, we will re-evaluate the need for the Snap VAC at your next visit. 5. Waiting for insurance approval for HBO. EDUCATION: The patient/family was instructed how to cleanse the wound(s). Visual demonstration on how to apply the dressing with teach back method. Signs & symptoms of infection were reviewed: Increased redness, swelling, pain, green/yellow drainage, fever and/or chills would all need to be evaluated by a Physician. Patient received typed home-going wound care instructions and has expressed intent to comply. OTHER EDUCATION: Provider discussed wound progression, dressing treatment, HBO, follow up. Education performed regarding lymphedema/edema: Elevation of extremity above the heart for 30 minutes three times daily and as needed Exercise such as writing the ABC's with your toes in the air, walking and/or calf pumps Wearing compression as ordered by provider Diet controlling of sodium as instructed by provider Use of medication to help control edema. UNIVERSAL PROTOCOL / SAFETY CHECKLIST Procedure to be Performed: sharp wound debridement Sign In: 0964 A Moment of CARE was completed. Personnel directly involved with the procedure wore the appropriate PPE (Personal Protective Equipment). Patient/Surrogate Stated/Verified: PATIENT VERIFIED(optional for EMERGENT procedures): Patient name, Date of , Relevant allergies, and The intended procedure Time Out Communication: 8618 Intended patient and procedure match the source documents. Consent documented and matches the intended procedure. Sign Out: 0921 SIGN OUT (optional for EMERGENT procedures): No specimen collected. Current HBOT Status: Active or Complete - see screening below WOUND CENTER HYPERBARIC OXYGEN THERAPY SCREENING 1. Is the patient diabetic? (If No, skip to question 5) Yes 2. Does the patient have a lower extremity wound? Yes 3. Is there exposed/involved tendon or bone? No 4. Has the wound been present for 30 days? Yes If Yes to ALL questions above, consult the Hyperbaric Center 5. Has the patient been diagnosed with osteomyelitis? No 6. Has the patient had a previous skin graft or flap at the wound? No 7. Has the patient had or been offered vascular intervention/evaluation? No 8. Does the patient have a wound at an amputation site? Yes 9. Has the patient had radiation therapy at the site of the problem? No If Yes to ANY of questions 5-9, consult the Hyperbaric Center Dr. Benitez in to discuss HBOT with patient Dahlia Andrade RN/rivka documented in this encounter [facility] 11-27-2022 History of Presen t illness Narrative Images from the original note were not included. Problem list reviewed. CHIEF COMPLAINT: Right foot ulcer and NEW infection and NEW blister SP Amputation of RT second toe, ID 10/28/2022 DM II A1c 10.3 DLS 10/12/2022 HISTORY OF PRESENT ILLNESS: Here today for POV RT second toe amputation and ID great toe and closure of wound RT lateral great toe. She not on any antibiotics previously on cipro and doxy. She is here for possible restarting of snap vac. She relates the wound seems to have gotten worse and has NEW blister. She relates foot is red, swollen. She is concerned about infection and need for further amputation. Pain is 0/10. referred by Dr. 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 PCN allergy HX partial amputation RT great toe 07/08/2022 and LEFT great toe wound rx circade wraps 08/14/22 CURRENT MEDICATIONS: Cephalexin Oral Tablet 500 MG(10/23/2022) Take 1 tablet three times a day for 7 day(s) Ciprofloxacin HCl Oral Tablet 500 MG(10/23/2022) Take 1 tablet twice a day for 7 day(s) diazePAM Oral Tablet 10 MG(02/19/2022) TAKE 1 TABLET 60 MIN BEFORE TEST Ofloxacin Ophthalmic Solution 0.3 %(02/09/2022) PUT 1 DROP IN LEFT EYE 4 TIMES A DAY FLUoxetine HCl Oral Capsule 40 MG(01/26/2022) Enalapril Maleate Oral Tablet 10 MG(01/26/2022) TAKE 1 TABLET BY MOUTH EVERY DAY Atorvastatin Calcium Oral Tablet 40 MG(04/16/2022) TAKE 1 TABLET BY MOUTH EVERYDAY AT BEDTIME Erythromycin Ophthalmic Ointment 5 MG/GM(02/09/2022) APPLY 1 A SMALL AMOUNT LEFT EYE 4 TIMES A DAY Atorvastatin Calcium Oral Tablet 20 MG(01/26/2022) TAKE 1 TABLET BY MOUTH EVERY DAY Jardiance Oral Tablet 25 MG(03/23/2022) Spironolactone Oral Tablet 25 MG(04/17/2022) Furosemide Oral Tablet 40 MG(03/05/2022) TAKE 1 TABLET BY MOUTH EVERY DAY HumuLIN R U-500 KwikPen Subcutaneous Solution Pen-injector 500 UNIT/ML(09/29/2021) INJECT 90 UNITS SUBCUTANEOUSLY AT BREAKFAST TIME, 40 UNTIS AT LUNCH, AND 90 UNITS AT SUPPER metFORMIN HCl Oral Tablet 1000 MG(04/22/2022) ALLERGIES: Band-Aid [place] Surg Dressing Other Bandaging Tape Other PAST MEDICAL HISTORY: Podiatry History remarkable for Foot Numbness, Fungal Nails, Leg or Foot Ulcers. The patient has a past medical history of Arthritis, Depression, DM-Medication Dependent, Poor Circulation. Neuropathy High Cholesterol SURGICAL HISTORY: Hand Tonsils HOSPITALIZATIONS: None Noted SOCIAL HISTORY: Smoking Status: Never smoker; Last Reviewed: 11/02/2022 Alcohol use: social drinker No drug use Social History Reviewed (01/16/2021 11:20:18 AM EST) FAMILY HISTORY: There is a family history of Denial of any knowledge of significant family history. Denial of any knowledge of significant family history Family History Reviewed (01/16/2021 11:20:19 AM EST) REVIEW OF SYSTEMS: Psychologic: Admits to No psych symptoms. Review of systems otherwise negative PHYSICAL EXAMINATION: Vital Signs: Weight 235 lbs; Height 5 ft 8 in; BMI 35.7 11/24/2022 10:05 AM (EST) Temperature 98.6 F; Pulse Rate 100 bpm; Blood Pressure 120 / 80 mm/Hg Vascular Exam: BL Foot DP / PT pulses +2/4 CFT less than 3 seconds to digits, skin temp warm to warm from proximal to distal BL Foot Dermatologic Exam: RIGHT foot erythema, edema, pain, calor noted RIGHT 2nd amputation site wound predebridement measures 4x0.7x2.0cm and post debridement measures 5x0.8x2.3cm with 20:80 fibrotic granular base, surrounding slough, surrounding maceration, erythema, no purulence, probe to bone, no malodor, moderate serosanguinous drainage. Into level of BONE TISSUE RIGHT lateral hallux wound predebridement measures 0.3x0.3x0.1cm and post debridement measures 0.5x0.4x0.6cm with 50:50 granular fibrotic base, surrounding slough, erythema, no purulence, no probe to bone, no malodor, moderate serosanguinous drainage. Into level of FAT TISSUE RIGHT 3rd toe tuft wound predebridement measures 0.4x0.3x0.1cm and post debridement measures 0.6x0.5x0.2cm with 50:50 granular fibrotic base, surrounding callus, erythema, no probe to bone, no malodor, moderate serosanguinous drainage. Into level of SUBCUTANEOUS TISSUE RIGHT dorsal foot wound predebridement measures 0.1x0.1x0.1cm and post debridement measures 1.5x1.4x0.2cm with granular base, surrounding blister, erythema, no purulence, no probe to bone, no malodor, moderate serosanguinous drainage. Into level of SUBCUTANEOUS TISSUE RIGHT anterior lower leg wound healed. Nails 1-5 left and 3-5 RT Bilateral are thickened, elongated and discolored with subungual debris. The nails are greater than .3mm in thickness. The discoloration is yellowish in color. Innerspaces 1-4bl are clean dry and intact. Skin texture and turgor are decreased. absent or decreased hair growth bilateral. nail changes bilateral Neurologic Exam: Comments/Other Findings: Vibratory sensations decreased BL at the MPJ, Protective sensations absent BL tested with 5.07 monofilament, and light, sharp, and temperature sensations intact bl. Muscle Testing of the Extensors, Flexors, Evertors (peroneals), and Invertors (posterior tibialis) BL leg shows 5/5 testing noted. Normal Babinski test noted bl foot after testing Orthopedic Exam: Additional Orthopedic Findings: RT partial great toe and 2nd toe amp noted DIAGNOSIS: Ulcer of right foot with fat layer exposed Right foot pain Pain of toe of right foot Type II diabetes mellitus with neurological manifestations Lymphedema of both lower extremities PVD (peripheral vascular disease) History of amputation of right great toe Amputated toe of right foot Surgical wound dehiscence Ulcer of right foot with necrosis of bone Cellulitis of right foot Ulcer of right foot limited to breakdown of skin PLAN AND TREATMENT: ASSESMENT & PLAN BL Foot and Ankle and Lower extremity Exam and Evaluation carried out with a treatment plan reviewed with the patient and findings discussed with patient including alternatives, benefits, complications and risks PREVIOUS TESTS / IMAGING / X-RAY EXAM Previous left foot XR: left heel and there is no fractures noted spurring noted heel plantar fracture second toe distal phalanx with no displacement. no signs om to distal left hallux phalanx 11/10/22 right foot XR: there is partial great toe noted with no sign of infection. second toe MPJ amp with met head resection noted. 12/22/21 PVR RESULTS: RIGHT SIDE Resting right ankle brachial index: 1.37Right toe brachial index: 0.70Normal ankle brachial index at rest in the right leg. Normal toe brachial index at rest in the right leg. Right ankle: Normal at rest. LEFT SIDE Resting left ankle brachial index: 1.33Left toe brachial index: 0.83Normal ankle brachial index at rest in the left leg. Normal toe brachial index at rest in the left leg. Left ankle: Normal at rest. 10/28/22 OR: 2nd toe amp site Cx- Toby sewell. Path: 2nd toe acute OM, 2nd met head no OM. 11/11/22 left foot XR: left heel and there is no fractures noted spurring noted heel plantar fracture second toe distal phalanx with no displacement. no signs om to distal left hallux phalanx 11/23/22 left foot XR: Previous amputation of the second toe and the head of the second metatarsal. Remote healed fracture of the neck of the fifth metatarsal. Previous amputation of the distal phalanx of the great toe. Prominent plantar calcaneal spur. No definite bony destructive change is seen. No soft tissue gas or foreign body. RIGHT 2nd toe amp flap failure wound worsened. RIGHT 3rd toe ulcer stable. RIGHT anterior lower leg wound healed. RIGHT lateral hallux ulcer stable. NEW RIGHT dorsal foot ulcer. RIGHT 3rd toe tuft and RIGHT dorsal foot ulcer treated with sharp excisional debridement carried out of the wound with non selective sharp excisional debridement past the dermis into SUBCUTANEOUS level with use of curette and 15 scalpel blade. Devitalized tissue removed. We then flushed out the wound with wound wash sterile saline. Area numbed with lidocaine gel if sensate prior. RIGHT lateral hallux ulcer treated with sharp excisional debridement carried out of the wound with non selective sharp excisional debridement past the dermis into FASCIA and FAT level with use of curette and 15 scalpel blade. Devitalized tissue removed and we then flushed out the wound with wound wash sterile saline. Area numbed with lidocaine gel if sensate prior. RIGHT 2nd toe amputation site ulcer treated with sharp excisional debridement carried out of the wound with non selective sharp excisional debridement past the dermis into BONE level with use of curette, bone rongeur and 15 scalpel blade. Devitalized tissue removed and we then flushed out the wound with wound wash sterile saline. Area numbed with lidocaine gel if sensate prior. Discussed importance in offloading, proper nutrition including blood sugar control and getting enough protein and vitamins, infection prevention, proper wound care in wound healing. Also discussed detrimental impact of smoking on healing. Reviewed proper wound care with patient. Dressing was applied today. To watch for signs of infection both local and systemic. These were reviewed with the patient. If seen to contact office or go to ED. To continue wound care consisting of washing the wound with soap and water or vashe solution. Then to apply dressing consisting of jose a and allevyn to halux and 3rd toe. To 2nd amputation site ulcer apply ventian rimma periwound, jose a to wound bed and snap vac. LAST VISIT applied snap vac to RIGHT SECOND TOE AMPUTATION SITE ULCER and will plan twice a week dressing changes with this. Next plan if there is too much drainage is to order standard wound vac to help fill this void, as well as continue compression. JOSE A applied to wound base Discussed if snap vac fails or if seal breaks or if there is too much drainage patient is to take it down and to continue wound care consisting of washing the wound daily with soap and water. Then to apply dressing consisting of 1/4 iodoform packing, silver alginate, foam border, and tubigrip compression Cx obtained right 2nd toe amputation site dehiscence Rx clindamycin Discussed starting HBO, discussed case with HBO team Discussed patient is at risk for further amputation. Discussed if worsens to go to ED Discussed need for better sugar control for healing. Rx XR right foot-pending Follow up 1 week for ulcer check Ulcer of right foot with fat layer exposed 707.15 L97.512 & Right foot pain 729.5 M79.671 & Pain of toe of right foot 729.5 M79.674 & Type II diabetes mellitus with neurological manifestations 250.60 E11.49 & Lymphedema of both lower extremities 457.1 I89.0 & PVD (peripheral vascular disease) 443.9 I73.9 & History of amputation of right great toe V49.71 Z89.411 & Amputated toe of right foot 895.0 S98.131A & Surgical wound dehiscence 998.32 T81.31XA & Ulcer of right foot with necrosis of bone 707.15 L97.514 & Cellulitis of right foot 682.7 L03.115 & Ulcer of right foot limited to breakdown of skin 707.15 L97.511 documented in this encounter [facility] 11-26-2022 Instructions Portia Holguin RN - 11/26/2022 10:34 AM EDT WOUND CARE INSTRUCTIONS- Shade Brambila Wound location: Right lower leg Wound dressings: - Gather supplies - Place down a clean work surface such as new paper towel or newly cleaned towel. - Clean all metal instruments with rubbing alcohol before and after each use. - Plastic garbage bag for old dressing - Wash your hands with soap and water before and after wound care. - Moisten a 4x4 gauze with a few drops of Vashe solution and apply to all wounds. Let soak for 5-10 minutes and pat dry with clean gauze. Right 2nd toe amputation site - Gently pack the amputation site with 1/4 inch iodoform packing to the base of the wound and leave a 1/2 inch tail out of the wound for ease of removal - Apply a piece of silver alginate (felt-like material) over the packing - Cover with dry gauze and secure with roll gauze and tape - Change the dressing daily or as needed to maintain a clean, dry and intact dressing Right 3rd Toe Tuft & Right Great Toe: - Apply a piece of silver alginate (felt-like material) over both wounds - Cover with dry gauze and secure with roll gauze and tape - Change the dressing daily or as needed to maintain a clean, dry and intact dressing Apply single layer tubi-tobacco wetter size E to bilateral lower legs and then wrap circaids overtop. Compression wrap must be removed if: it becomes wet or soiled If you have numbness or tingling in your foot or toes If you have increased pain If toes become cold or discolored - Avoid sitting with legs in a dependent position or standing for long periods of time. - Attempt to lay flat and elevate your legs above the level of your heart 2-3 times daily, for 30 minutes at a time. - Be sure to continue walking and/or calf pumps and exercises to mimic writing the alphabet with your foot, as instructed - Control your sodium intake as instructed by provider - Moisturize legs daily and wear circaid wrap on left leg. Put Circaid wrap on in the morning and okay to remove at bedtime, leaving tubi-tobacco wetter size E in place on your right leg. To give your wound the best chance to heal: - Eat three balanced meals daily focusing on the protein - Control your blood sugar. Keep blood sugar less than 200 - Complete your wound care instructions as ordered - Vitamin C 500 mg twice daily - Multiple Vitamin Daily - Drink a protein shake daily - Premiere Clear or Glucerna for Diabetic patients, Nepro for renal patients and premiere for non-renal and non-diabetic patients Report any of the following signs and symptoms of infection to the Wound Center at [phone] or go to the Emergency Department: Fever or chills Increased drainage Green or yellow drainage Foul odor Increased pain Hardness around the wound Redness, warmth or swelling of the surrounding tissue Color change to the wound Evenings / Weekends / Holidays If you call the wound center at the phone number provided above, please leave a detailed message that includes your full name, birthday, and phone number. We are seeing patients during the day, so we will return your call within a 24-48 hr period in the order your call was received. There is not an on-call provider assigned to the wound center. If you have an emergency that needs to be addressed, please go the Urgent Care or the Emergency Room. Thank you for your cooperation and understanding. PLAN/ORDERS: Return to the wound center to see Dr. Hu Pickard DPM on the following dates: - 11/30/22 at 9:00 am - 12/03/22 at 8:30 am - 12/07/22 at 10:30 am - 12/10/22 at 10:30 am - 12/14/22 at 10:30 am - 12/17/22 at 10:30 am 2. Continue aggressive nutritional support to assist wound healing 3. Call [facility] for more supplies, can re-order every 30 days. Phone #: [phone] 4. A wound culture was taken from the wound. Dr. Pickard will contact you if she needs to change any therapy 5. A prescription for Clindamycin 300 mg by mouth every 8 hours for 7 days has been sent to your pharmacy. 6. Your 3rd toe wound was treated with silver nitrate. It will appear a grayish/black color for the next several days. 7. Do not picking crew supervisor the Augmentin and Doxycycline antibiotics that were originally ordered. You have an allergy to Amoxicillin and can not take these antibiotics. You will take the Clindamycin. Hu Pickard DPM/arnold/martha documented in this encounter [facility] 11-26-2022 Nurse Note Nursing Documentation Pertinent Medical History: DM2 Wound Etiology according to patient: wounds spontaneously opened up over last 2 months Patient arrived via: ambulatory with [facility] Care AQS/Nursing Facility: N/A Consent captured for debridement per Dr Cici KENNEY and linda until May 2023 Consent captured for debridement per Dr. Neeraj KENNEY and linda until May 2023 Consent captured for debridement per Dr. Alfredo Moore DPM and linda until May 2023 Anticoagulant Therapy: N/A ACTIVE CARE PER PROVIDER: Giovanni Bolanos DPM & Hu Pickard DPM WOUND # 2 right anterior mid lower leg Combined with #3 01-13-2022 WOUND # 3 right anterior distal lower leg Combined with #2 01-13-2022 WOUND # 24 - LOCATION: Right Anterior Lower Leg - Cluster (changed to cluster on 11/10/22) CLOSED 11/16/22, Remains closed 11/19/22 WOUND ASSESSMENT: Refer to Provider's Wound Assessment Note VASCULAR ASSESSMENT BY PROVIDER: See provider wound assessment note CHF History: Yes as of February 2022, Dr. Sadler in Cardiology EDEMA: Right Foot: 2+ Right Calf: 2+ Left Calf: 3+ -not assessed 11/26/22 visit Left Foot 2+-not assessed 11/26/22 visit Other: N/A MEASUREMENTS: in cm Right Calf: 35.5 Right Ankle: 23.5 Left Calf: 32.0 - not measured at 11/26/22 visit. Pt wearing Circaid wrap Left Ankle: 23.4 - not measured at 11/26/22 visit. Pt wearing Circaid wrap Length: 43.0cm - Not measured at 11/26/22 visit WOUND PHOTOGRAPHY: Yes x 3 photos DEBRIDEMENT PROCEDURE BY PROVIDER: Anesthetic Used: None Other procedure: silver nitrate to #25 to control bleeding Specimen collected: wound culture from #2 WOUND TREATMENT PER MD ORDER: Wounds cleansed by mechanical debridement to allow provider to visualize wound base WOUND # 1 right anterior proximal lower leg WOUND #4 right posterior proximal lower leg closed 01-13-2022 WOUND #5 LOCATION: right posterior mid lower leg Closed 01-13-2022 WOUND #6 LOCATION: right posterior distal lower leg Closed 01-13-2022 WOUND #7 Left anterior lower leg - closed 02/17/22 WOUND # 8 Left anterior lateral lower leg closed 01-13-2022 WOUND #9 Left lateral ankle closed 03-24-2022 WOUND #10 Left lateral ankle- posterior closed 03-24-2022 WOUND #11 Left posterior leg proximal closed 03-24-2022 WOUND #12 Left posterior leg distal closed 03-24-2022 WOUND #13 Right Anterior Lateral steiner WOUND # 14_LOCATION: LLE anterior proximal cluster - closed 02/17/22 WOUND # 15 LOCATION: LLE Medial Anterior - closed 02/17/22 WOUND # 16_LOCATION: Left foot dorsum 1st met Head - closed 02/17/22 WOUND # 17 LOCATION: LLE Proximal lateral ankle - closed 02/17/22 WOUND #18 Right Lateral Leg superior closed 03-24-2022 WOUND #19 Right Lateral Leg inferior closed 03-24-2022 WOUND #20 Right Anterior lower leg superior closed 03-24-2022 WOUND #21 Right anterior lower leg Mid closed 03-24-2022 WOUND #22 Right anterior leg closed 03-24-2022 WOUND # 23 - LOCATION: Right 2nd Toe AMP Site L: 5.0 cm x W: 0.8 cm x D: 2.3 cm 11/26/22 - periwound maceration DEBRIDEMENT by provider: Bone intact bulla distal to the wound WOUND # 25 - LOCATION: Right 3rd Toe Tuft L: 0.6 cm x W: 0.5 cm x D: 0.2 cm DEBRIDEMENT by provider: SQ WOUND # 26 - LOCATION: Right Great Toe - Hallux - (new 11/10/22) L: 0.5 cm x W: 0.4 cm x D: 0.6 cm DEBRIDEMENT by provider: Fat WOUND # 27 LOCATION: Right dorsal Foot - intact bulla on arrival - new 11/26/22 L: 1.5 cm x W: 1.4 cm x D: 0.2 cm DEBRIDEMENT by provider: SQ Cleansed with: Vashe Applied to naya-wound skin: Gentian rimma to maceration Applied to wound bed: 1/4 inch iodoform packing to amp site (#23) only, silver alginate with silver over all wounds, 4x4, ABD pad Covered and secured with: conform and tape COMPRESSION: Single layer Tubi-Quality Assurance Tester size E to right lower leg, pt's own Circaid present on left lower leg SPECIAL NEEDS: Coordination of care - HBOT in to discuss with patient Emotional support N/A OR set-up N/A Yarn Examiner N/A Incontinence needs N/A DISCHARGED in stable condition to: Home ambulatory with cane PLAN/ORDERS: Return to the wound center to see Dr. Hu Pickard DPM on the following dates: - 11/30/22 at 9:00 am - 12/03/22 at 8:30 am - 12/07/22 at 10:30 am - 12/10/22 at 10:30 am - 12/14/22 at 10:30 am - 12/17/22 at 10:30 am 2. Continue aggressive nutritional support to assist wound healing 3. Call [facility] for more supplies, can re-order every 30 days. Phone #: [phone] 4. A wound culture was taken from the wound. Dr. Pickard will contact you if she needs to change any therapy 5. A prescription for Clindamycin 300 mg by mouth every 8 hours for 7 days has been sent to your pharmacy. 6. Your 3rd toe wound was treated with silver nitrate. It will appear a grayish/black color for the next several days. 7. Do not picking crew supervisor the Augmentin and Doxycycline antibiotics that were originally ordered. You have an allergy to Amoxicillin and can not take these antibiotics. You will take the Clindamycin. EDUCATION: The patient/family was instructed how to cleanse the wound(s). Visual demonstration on how to apply the dressing with teach back method. Signs & symptoms of infection were reviewed: Increased redness, swelling, pain, green/yellow drainage, fever and/or chills would all need to be evaluated by a Physician. Patient received typed home-going wound care instructions and has expressed intent to comply. OTHER EDUCATION: Dr. Pickard discussed wound progression, pt denies nausea/vomiting and any symptoms of illness, bulla, redness of leg, antibiotic, HBOT, prescription, allergy to amoxicillin (added to chart) Education performed regarding lymphedema/edema: Elevation of extremity above the heart for 30 minutes three times daily and as needed Exercise such as writing the ABC's with your toes in the air, walking and/or calf pumps Wearing compression as ordered by provider Diet controlling of sodium as instructed by provider Use of medication to help control edema. UNIVERSAL PROTOCOL / SAFETY CHECKLIST Procedure to be Performed: sharp wound debridement Sign In: 1041 A Moment of CARE was completed. Personnel directly involved with the procedure wore the appropriate PPE (Personal Protective Equipment). Patient/Surrogate Stated/Verified: PATIENT VERIFIED(optional for EMERGENT procedures): Patient name, Date of , Relevant allergies, and The intended procedure Time Out Communication: 1041 Intended patient and procedure match the source documents. Consent documented and matches the intended procedure. Sign Out: 1044 SIGN OUT (optional for EMERGENT procedures): No specimen collected. Current HBOT Status: Active or Complete - see screening below WOUND CENTER HYPERBARIC OXYGEN THERAPY SCREENING 1. Is the patient diabetic? (If No, skip to question 5) Yes 2. Does the patient have a lower extremity wound? Yes 3. Is there exposed/involved tendon or bone? No 4. Has the wound been present for 30 days? Yes If Yes to ALL questions above, consult the Hyperbaric Center 5. Has the patient been diagnosed with osteomyelitis? No 6. Has the patient had a previous skin graft or flap at the wound? No 7. Has the patient had or been offered vascular intervention/evaluation? No 8. Does the patient have a wound at an amputation site? Yes 9. Has the patient had radiation therapy at the site of the problem? No If Yes to ANY of questions 5-9, consult the Hyperbaric Center Dr. Benitez in to discuss HBOT with patient, take photo and examine patient Portia Holguin RN/ documented in this encounter [facility] 11-24-2022 History of Presen t illness Narrative Images from the original note were not included. Problem list reviewed. CHIEF COMPLAINT: SP Amputation of RT second toe, ID 10/28/2022 DM II A1c 10.3 DLS 10/12/2022 HISTORY OF PRESENT ILLNESS: Here today for POV RT second toe amputation and ID great toe and closure of wound RT lateral great toe. She is still on Cipro and doxy. She is here for snap vac change and relates the vac was beeping a lot this weekend. i am seeing for Dr. Nielsen today. Pain is 5/10. referred by Dr. 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 PCN allergy HX partial amputation RT great toe 07/08/2022 and LEFT great toe wound rx circade wraps 08/14/22 CURRENT MEDICATIONS: Cephalexin Oral Tablet 500 MG(10/23/2022) Take 1 tablet three times a day for 7 day(s) Ciprofloxacin HCl Oral Tablet 500 MG(10/23/2022) Take 1 tablet twice a day for 7 day(s) diazePAM Oral Tablet 10 MG(02/19/2022) TAKE 1 TABLET 60 MIN BEFORE TEST Ofloxacin Ophthalmic Solution 0.3 %(02/09/2022) PUT 1 DROP IN LEFT EYE 4 TIMES A DAY FLUoxetine HCl Oral Capsule 40 MG(01/26/2022) Enalapril Maleate Oral Tablet 10 MG(01/26/2022) TAKE 1 TABLET BY MOUTH EVERY DAY Atorvastatin Calcium Oral Tablet 40 MG(04/16/2022) TAKE 1 TABLET BY MOUTH EVERYDAY AT BEDTIME Erythromycin Ophthalmic Ointment 5 MG/GM(02/09/2022) APPLY 1 A SMALL AMOUNT LEFT EYE 4 TIMES A DAY Atorvastatin Calcium Oral Tablet 20 MG(01/26/2022) TAKE 1 TABLET BY MOUTH EVERY DAY Jardiance Oral Tablet 25 MG(03/23/2022) Spironolactone Oral Tablet 25 MG(04/17/2022) Furosemide Oral Tablet 40 MG(03/05/2022) TAKE 1 TABLET BY MOUTH EVERY DAY HumuLIN R U-500 KwikPen Subcutaneous Solution Pen-injector 500 UNIT/ML(09/29/2021) INJECT 90 UNITS SUBCUTANEOUSLY AT BREAKFAST TIME, 40 UNTIS AT LUNCH, AND 90 UNITS AT SUPPER metFORMIN HCl Oral Tablet 1000 MG(04/22/2022) ALLERGIES: Band-Aid [place] Surg Dressing Other Bandaging Tape Other PAST MEDICAL HISTORY: Podiatry History remarkable for Foot Numbness, Fungal Nails, Leg or Foot Ulcers. The patient has a past medical history of Arthritis, Depression, DM-Medication Dependent, Poor Circulation. Neuropathy High Cholesterol SURGICAL HISTORY: Hand Tonsils HOSPITALIZATIONS: None Noted SOCIAL HISTORY: Smoking Status: Never smoker; Last Reviewed: 11/02/2022 Alcohol use: social drinker No drug use Social History Reviewed (01/16/2021 11:20:18 AM EST) FAMILY HISTORY: There is a family history of Denial of any knowledge of significant family history. Denial of any knowledge of significant family history Family History Reviewed (01/16/2021 11:20:19 AM EST) REVIEW OF SYSTEMS: Psychologic: Admits to No psych symptoms. Review of systems otherwise negative PHYSICAL EXAMINATION: Vital Signs: Weight 235 lbs; Height 5 ft 8 in; BMI 35.7 11/19/2022 8:38 AM (EST) Temperature 98.6 F; Pulse Rate 100 bpm; Blood Pressure 120 / 80 mm/Hg Vascular Exam: BL Foot DP / PT pulses +2/4 CFT less than 3 seconds to digits, skin temp warm to warm from proximal to distal BL Foot Dermatologic Exam: RIGHT 2nd amputation site wound predebridement measures 4x0.4x1.0cm and post debridement measures 4.0x0.6x2.0cm with 20:80 granular fibrotic base, surrounding slough, no erythema, no purulence, no probe to bone, no malodor, moderate serosanguinous drainage. Into level of FAT TISSUE RIGHT lateral hallux wound predebridement measures 0.1x0.1x0.1cm and post debridement measures 0.7x0.4x0.2cm with 50:50 granular fibrotic base, surrounding slough, no erythema, no purulence, no probe to bone, no malodor, moderate serosanguinous drainage. Into level of SUBCUTANEOUS TISSUE RIGHT 3rd toe tuft wound predebridement measures 0.1x0.1x0.1cm and post debridement measures 0.2x0.2x0.1cm with 50:50 granular fibrotic base, surrounding callus, no erythema, no purulence, no probe to bone, no malodor, moderate serosanguinous drainage. Into level of SUBCUTANEOUS TISSUE RIGHT anterior lower leg wound healed. Nails 1-5 left and 3-5 RT Bilateral are thickened, elongated and discolored with subungual debris. The nails are greater than .3mm in thickness. The discoloration is yellowish in color. Innerspaces 1-4bl are clean dry and intact. Skin texture and turgor are decreased. absent or decreased hair growth bilateral. nail changes bilateral Neurologic Exam: Comments/Other Findings: Vibratory sensations decreased BL at the MPJ, Protective sensations absent BL tested with 5.07 monofilament, and light, sharp, and temperature sensations intact bl. Muscle Testing of the Extensors, Flexors, Evertors (peroneals), and Invertors (posterior tibialis) BL leg shows 5/5 testing noted. Normal Babinski test noted bl foot after testing Orthopedic Exam: Additional Orthopedic Findings: RT partial great toe and 2nd toe amp noted DIAGNOSIS: Ulcer of right foot with fat layer exposed Right foot pain Pain of toe of right foot Type II diabetes mellitus with neurological manifestations Lymphedema of both lower extremities PVD (peripheral vascular disease) History of amputation of right great toe Amputated toe of right foot Chronic ulcer of right great toe, limited to breakdown of skin Displaced fracture of distal phalanx of left lesser toe(s), subsequent encounter for fracture with routine healing PLAN AND TREATMENT: ASSESMENT & PLAN BL Foot and Ankle and Lower extremity Exam and Evaluation carried out with a treatment plan reviewed with the patient and findings discussed with patient including alternatives, benefits, complications and risks PREVIOUS TESTS / IMAGING / X-RAY EXAM Previous left foot XR: left heel and there is no fractures noted spurring noted heel plantar fracture second toe distal phalanx with no displacement. no signs om to distal left hallux phalanx 11/10/22 right foot XR: there is partial great toe noted with no sign of infection. second toe MPJ amp with met head resection noted. 12/22/21 PVR RESULTS: RIGHT SIDE Resting right ankle brachial index: 1.37Right toe brachial index: 0.70Normal ankle brachial index at rest in the right leg. Normal toe brachial index at rest in the right leg. Right ankle: Normal at rest. LEFT SIDE Resting left ankle brachial index: 1.33Left toe brachial index: 0.83Normal ankle brachial index at rest in the left leg. Normal toe brachial index at rest in the left leg. Left ankle: Normal at rest. 10/28/22 OR: 2nd toe amp site Cx- Toby sewell. Path: 2nd toe acute OM, 2nd met head no OM. 11/11/22 left foot XR: left heel and there is no fractures noted spurring noted heel plantar fracture second toe distal phalanx with no displacement. no signs om to distal left hallux phalanx RIGHT 2nd toe amp wound worsened. RIGHT 3rd toe ulcer stable. RIGHT anterior lower leg wound healed. RIGHT lateral hallux ulcer stable. RIGHT 3rd toe tuft ulcer treated with sharp excisional debridement carried out of the wound with non selective sharp excisional debridement past the dermis into SUBCUTANEOUS level with use of curette and 15 scalpel blade. Devitalized tissue removed. We then flushed out the wound with wound wash sterile saline. Area numbed with lidocaine gel if sensate prior. RIGHT 2nd toe amputation site and RIGHT lateral hallux ulcer treated with sharp excisional debridement carried out of the wound with non selective sharp excisional debridement past the dermis into FASCIA and FAT level with use of curette and 15 scalpel blade. Devitalized tissue removed and we then flushed out the wound with wound wash sterile saline. Area numbed with lidocaine gel if sensate prior. Discussed importance in offloading, proper nutrition including blood sugar control and getting enough protein and vitamins, infection prevention, proper wound care in wound healing. Also discussed detrimental impact of smoking on healing. Reviewed proper wound care with patient. Dressing was applied today. To watch for signs of infection both local and systemic. These were reviewed with the patient. If seen to contact office or go to ED. To continue wound care consisting of washing the wound with soap and water or vashe solution. Then to apply dressing consisting of jose a and allevyn to halux and 3rd toe. To 2nd amputation site ulcer apply ventian rimma periwound, jose a to wound bed and snap vac. LAST VISIT applied snap vac to RIGHT SECOND TOE AMPUTATION SITE ULCER and will plan twice a week dressing changes with this. Next plan if there is too much drainage is to order standard wound vac to help fill this void, as well as continue compression. JOSE A applied to wound base Discussed if snap vac fails or if seal breaks or if there is too much drainage patient is to take it down and to continue wound care consisting of washing the wound daily with soap and water. Then to apply dressing consisting of 1/4 iodoform packing, silver alginate, foam border, and tubigrip compression Snap Vac application Cleansed with: Vashe Applied to wound bed: Promogran , Duoderm thin applied to periwound skin close to the skin edge. Followed by Coloplast Brava barring ring to edge of naya-wound. Wound gently packed with Blue foam followed by a Blue foam bolster and covered with the suction tubing dressing. Negative pressure achieved by depressing the sosa. Pt has been instructed on how to achieve the negative pressure and alternate wound care should the SnapVac fail. Device secured on pt's leg with the holding strap. EDUCATION: The patient/family was instructed how to cleanse the wound(s). Visual demonstration on how to apply the dressing with teach back method. Signs & symptoms of infection were reviewed: Increased redness, swelling, pain, green/yellow drainage, fever and/or chills would all need to be evaluated by a Physician. Patient received typed home-going wound care instructions and has expressed intent to comply. OTHER EDUCATION: New wound care - SnapVAC. Pt has been instructed on how to achieve the negative pressure and alternate wound care should the SnapVac fail. SnapVAC handout given to and reviewed with pt as well. She knows she is at risk for further amputation such as TMA and for admission to hospital with infection. Discussed need to keep wounds dry, maceration noted. RIGHT hallux I&D site stable. Rx XR right foot- has yet to get Finish cipro and doxy Follow up at [facility] for ulcer check Mon and THUR for snap vac changes and check XR TODAY, did not apply snap vac, took a vac break due to drainage and no seal over weekend, to resume application TH. macerated and sloughing today. applied gentian rimma and aglinate dressing changes for her to do daily until resume. cont oral antibiotics. wounds stable today Ulcer of right foot with fat layer exposed 707.15 L97.512 & Right foot pain 729.5 M79.671 & Pain of toe of right foot 729.5 M79.674 & Type II diabetes mellitus with neurological manifestations 250.60 E11.49 & Lymphedema of both lower extremities 457.1 I89.0 & PVD (peripheral vascular disease) 443.9 I73.9 & History of amputation of right great toe V49.71 Z89.411 & Amputated toe of right foot 895.0 S98.131A & Chronic ulcer of right great toe, limited to breakdown of skin 707.15 L97.511 & Displaced fracture of distal phalanx of left lesser toe(s), subsequent encounter for fracture with routine healing V54.19 S92.532D documented in this encounter [facility] 11-23-2022 History of Presen t illness Narrative Radiology Service Progress Note PATIENT NAME: Shade Brambila DATE OF SERVICE: November 23, 2022 TIME: 10:35 AM PATIENT IDENTITY VERIFICATION COMPLETED USING TWO (2) IDENTIFIERS: Name and Date of confirmed by patient verbally. FALL SCREENING: Has the patient had 2 falls in the last year or 1 fall with injury or currently using an Ambulatory Assistive Device (Walker, Cane, Wheelchair, Crutches, etc.)? No PATIENT GENDER DATA: Female. status: : No status: NO. PATIENT RELEVANT IMPLANT DATA REVIEWED: Not Applicable RADIOLOGY DEPARTMENT: General X-ray: Exam(s) Completed: Lower Extremity X-Ray(s): Foot, Right PERIPHERAL IV DATA: Not applicable SIGNED BY: AMANDA Brink November 23, 2022 10:35 AM documented in this encounter [facility] 11-23-2022 Instructions Shelley Kenny RN - 11/23/2022 9:37 AM EDT WOUND CARE INSTRUCTIONS- Shade Brambila Wound location: Right lower leg SNAP VAC place on HOLD 11/23/22. If you notice that the sosa of the SNAP VAC has migrated upwards and it begins to show red, please push sosa downwards to preserve pressure. If you depress the sosa, and it will not stay down, remove the dressing and follow the alternative wound care instructions provided below. Alternative Wound Care Instructions: - If SNAP vac must be removed, apply Vashe moistened gauze to wound and let soak for 5-10 minutes. - Wrap up as best you can with remaining ABD pads, roll gauze, & tape. - Come to next wound center appointment and bring removed SNAP vac with you to your next appointment. 11/23/22: All 3 wounds: Right 2nd toe amputation site, Right 3rd Toe Tuft & Right Great Toe: - Gather supplies - Place down a clean work surface such as new paper towel or newly cleaned towel. - Clean all metal instruments with rubbing alcohol before and after each use. - Plastic garbage bag for old dressing - Wash your hands with soap and water before and after wound care. - Moisten a 4x4 gauze with a few drops of Vashe solution and apply to all wounds. Let soak for 5-10 minutes and pat dry with clean gauze. - Betadine paint the skin around all the wounds and allow to dry Apply a piece of silver alginate (felt-like material) to all 3 wounds - Cover with dry gauze and secure with roll gauze and tape Change the dressing daily until your next appointment 11/26/22 Apply single layer tubi-tobacco wetter size E to bilateral lower legs and then wrap circaids overtop. Compression wrap must be removed if: it becomes wet or soiled If you have numbness or tingling in your foot or toes If you have increased pain If toes become cold or discolored - Avoid sitting with legs in a dependent position or standing for long periods of time. - Attempt to lay flat and elevate your legs above the level of your heart 2-3 times daily, for 30 minutes at a time. - Be sure to continue walking and/or calf pumps and exercises to mimic writing the alphabet with your foot, as instructed - Control your sodium intake as instructed by provider - Moisturize legs daily and wear circaid wrap on left leg. Put Circaid wrap on in the morning and okay to remove at bedtime, leaving tubi-tobacco wetter size E in place on your right leg. To give your wound the best chance to heal: - Eat three balanced meals daily focusing on the protein - Control your blood sugar. Keep blood sugar less than 200 - Complete your wound care instructions as ordered - Vitamin C 500 mg twice daily - Multiple Vitamin Daily - Drink a protein shake daily - Premiere Clear or Glucerna for Diabetic patients, Nepro for renal patients and premiere for non-renal and non-diabetic patients Report any of the following signs and symptoms of infection to the Wound Center at [phone] or go to the Emergency Department: Fever or chills Increased drainage Green or yellow drainage Foul odor Increased pain Hardness around the wound Redness, warmth or swelling of the surrounding tissue Color change to the wound Evenings / Weekends / Holidays If you call the wound center at the phone number provided above, please leave a detailed message that includes your full name, birthday, and phone number. We are seeing patients during the day, so we will return your call within a 24-48 hr period in the order your call was received. There is not an on-call provider assigned to the wound center. If you have an emergency that needs to be addressed, please go the Urgent Care or the Emergency Room. Thank you for your cooperation and understanding. PLAN/ORDERS: Return to the wound center to see Dr. Hu Pickard DPM on the following dates: - 11/26/22 at 10:00 am - Wednesday11/30/22 at 9:00 - Please get right foot X-RAY as already ordered Continue aggressive nutritional support to assist wound healing Call [facility] for more supplies, can re-order every 30 days. Phone #: [phone] Dr. Alfredo Moore DPM/carla/martha documented in this encounter [facility] 11-23-2022 Nurse Note Nursing Documentation Pertinent Medical History: DM2 Wound Etiology according to patient: wounds spontaneously opened up over last 2 months Patient arrived via: ambulatory with [employer]/Nursing Facility: N/A Consent captured for debridement per Dr Cici KENNEY and linda until May 2023 Consent captured for debridement per Dr. Neeraj KENNEY and linda until May 2023 Consent captured for debridement per Dr. Alfredo Moore DPM and linda until May 2023 Anticoagulant Therapy: N/A ACTIVE CARE PER PROVIDER: Giovanni Bolanos DPM & Hu Pickard DPM WOUND # 2 right anterior mid lower leg Combined with #3 01-13-2022 WOUND # 3 right anterior distal lower leg Combined with #2 01-13-2022 WOUND # 24 - LOCATION: Right Anterior Lower Leg - Cluster (changed to cluster on 11/10/22) CLOSED 11/16/22, Remains closed 11/19/22 WOUND ASSESSMENT: Refer to Provider's Wound Assessment Note VASCULAR ASSESSMENT BY PROVIDER: See provider wound assessment note CHF History: Yes as of February 2022, Dr. Sadler in Cardiology EDEMA: Right Foot: 1+ Right Calf: 3+ Left Calf: 3+ -not assessed 11/23/22 Left Foot 2+-not assessed 11/23/22 Other: N/A MEASUREMENTS: in cm Right Calf: 38.0 Right Ankle: 24.5 Left Calf: 32.0 - not measured. Pt wearing Circaid wrap Left Ankle: 23.4 - not measured. Pt wearing Circaid wrap Length: 43.0cm - Not measured at today's visit WOUND PHOTOGRAPHY: Yes x 3 photos DEBRIDEMENT PROCEDURE BY PROVIDER: Anesthetic Used: None Other procedure: N/A Specimen collected: N/A WOUND TREATMENT PER MD ORDER: Wounds cleansed by mechanical debridement to allow provider to visualize wound base WOUND # 1 right anterior proximal lower leg WOUND #4 right posterior proximal lower leg closed 01-13-2022 WOUND #5 LOCATION: right posterior mid lower leg Closed 01-13-2022 WOUND #6 LOCATION: right posterior distal lower leg Closed 01-13-2022 WOUND #7 Left anterior lower leg - closed 02/17/22 WOUND # 8 Left anterior lateral lower leg closed 01-13-2022 WOUND #9 Left lateral ankle closed 03-24-2022 WOUND #10 Left lateral ankle- posterior closed 03-24-2022 WOUND #11 Left posterior leg proximal closed 03-24-2022 WOUND #12 Left posterior leg distal closed 03-24-2022 WOUND #13 Right Anterior Lateral steiner WOUND # 14_LOCATION: LLE anterior proximal cluster - closed 02/17/22 WOUND # 15 LOCATION: LLE Medial Anterior - closed 02/17/22 WOUND # 16_LOCATION: Left foot dorsum 1st met Head - closed 02/17/22 WOUND # 17 LOCATION: LLE Proximal lateral ankle - closed 02/17/22 WOUND #18 Right Lateral Leg superior closed 03-24-2022 WOUND #19 Right Lateral Leg inferior closed 03-24-2022 WOUND #20 Right Anterior lower leg superior closed 03-24-2022 WOUND #21 Right anterior lower leg Mid closed 03-24-2022 WOUND #22 Right anterior leg closed 03-24-2022 WOUND # 23 - LOCATION: Right 2nd Toe AMP Site L: 4.0 cm x W: 0.6 cm x D: 1.0 cm 11/23/22 - periwound maceration increased today DEBRIDEMENT by provider: Fascia WOUND # 25 - LOCATION: Right 3rd Toe Tuft L: 0.2 cm x W: 0.2 cm x D: 0.1 cm DEBRIDEMENT by provider: SQ WOUND # 26 - LOCATION: Right Great Toe - Hallux - (new 11/10/22) L: 0.7 cm x W: 0.4cm x D: 0.3 cm DEBRIDEMENT by provider: fascia Cleansed with: Vashe Applied to naya-wound skin: Gentian rimma to maceration Applied to wound bed: silver alginate, 4x4, ABD pad, conform Covered and secured with: conform COMPRESSION: Single layer Tubi-Quality Assurance Tester size E to right lower leg, pt's own Circaid present on left lower leg SPECIAL NEEDS: Coordination of care - N/A Emotional support N/A OR set-up N/A Yarn Examiner N/A Incontinence needs N/A DISCHARGED in stable condition to: Home ambulatory with cane PLAN/ORDERS: Return to the wound center to see Dr. Hu Pickard DPGricel on the following dates: - 11/26/22 at 10:00 am - Wednesday11/30/22 at 9:00 - Please get right foot X-RAY as already ordered Continue aggressive nutritional support to assist wound healing Call [facility] for more supplies, can re-order every 30 days. Phone #: [phone] EDUCATION: The patient/family was instructed how to cleanse the wound(s). Visual demonstration on how to apply the dressing with teach back method. Signs & symptoms of infection were reviewed: Increased redness, swelling, pain, green/yellow drainage, fever and/or chills would all need to be evaluated by a Physician. Patient received typed home-going wound care instructions and has expressed intent to comply. OTHER EDUCATION: Dr. Moore discussed need to take a break from the SnapVac today due to increased periwound maceration; new wound care orders obtained Education performed regarding lymphedema/edema: Elevation of extremity above the heart for 30 minutes three times daily and as needed Exercise such as writing the ABC's with your toes in the air, walking and/or calf pumps Wearing compression as ordered by provider Diet controlling of sodium as instructed by provider Use of medication to help control edema. UNIVERSAL PROTOCOL / SAFETY CHECKLIST Procedure to be Performed: sharp wound debridement Sign In: 0945 A Moment of CARE was completed. Personnel directly involved with the procedure wore the appropriate PPE (Personal Protective Equipment). Patient/Surrogate Stated/Verified: PATIENT VERIFIED(optional for EMERGENT procedures): Patient name, Date of , Relevant allergies, and The intended procedure Time Out Communication: 0945 Intended patient and procedure match the source documents. Consent documented and matches the intended procedure. Sign Out: 0950 SIGN OUT (optional for EMERGENT procedures): No specimen collected. Shelley Kenny RN/martha Current HBOT Status: Active or Complete - see screening below WOUND CENTER HYPERBARIC OXYGEN THERAPY SCREENING 1. Is the patient diabetic? (If No, skip to question 5) Yes 2. Does the patient have a lower extremity wound? Yes 3. Is there exposed/involved tendon or bone? No 4. Has the wound been present for 30 days? Yes If Yes to ALL questions above, consult the Hyperbaric Center 5. Has the patient been diagnosed with osteomyelitis? No 6. Has the patient had a previous skin graft or flap at the wound? No 7. Has the patient had or been offered vascular intervention/evaluation? No 8. Does the patient have a wound at an amputation site? Yes 9. Has the patient had radiation therapy at the site of the problem? No If Yes to ANY of questions 5-9, consult the Hyperbaric Center Shelley Kenny RN/ documented in this encounter [facility] 11-20-2022 History of Presen t illness Narrative Images from the original note were not included. Problem list reviewed. CHIEF COMPLAINT: SP Amputation of RT second toe, ID 10/28/2022 DM II A1c 10.3 DLS 10/12/2022 HISTORY OF PRESENT ILLNESS: Here today for POV RT second toe amputation and ID great toe and closure of wound RT lateral great toe. She is on Cipro and doxy. She is here for snap vac change. Denies issues with snap vac. She didn't get XR yet. Pain is 0/10. referred by Dr. 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 PCN allergy HX partial amputation RT great toe 07/08/2022 and LEFT great toe wound rx circade wraps 08/14/22 CURRENT MEDICATIONS: Cephalexin Oral Tablet 500 MG(10/23/2022) Take 1 tablet three times a day for 7 day(s) Ciprofloxacin HCl Oral Tablet 500 MG(10/23/2022) Take 1 tablet twice a day for 7 day(s) diazePAM Oral Tablet 10 MG(02/19/2022) TAKE 1 TABLET 60 MIN BEFORE TEST Ofloxacin Ophthalmic Solution 0.3 %(02/09/2022) PUT 1 DROP IN LEFT EYE 4 TIMES A DAY FLUoxetine HCl Oral Capsule 40 MG(01/26/2022) Enalapril Maleate Oral Tablet 10 MG(01/26/2022) TAKE 1 TABLET BY MOUTH EVERY DAY Atorvastatin Calcium Oral Tablet 40 MG(04/16/2022) TAKE 1 TABLET BY MOUTH EVERYDAY AT BEDTIME Erythromycin Ophthalmic Ointment 5 MG/GM(02/09/2022) APPLY 1 A SMALL AMOUNT LEFT EYE 4 TIMES A DAY Atorvastatin Calcium Oral Tablet 20 MG(01/26/2022) TAKE 1 TABLET BY MOUTH EVERY DAY Jardiance Oral Tablet 25 MG(03/23/2022) Spironolactone Oral Tablet 25 MG(04/17/2022) Furosemide Oral Tablet 40 MG(03/05/2022) TAKE 1 TABLET BY MOUTH EVERY DAY HumuLIN R U-500 KwikPen Subcutaneous Solution Pen-injector 500 UNIT/ML(09/29/2021) INJECT 90 UNITS SUBCUTANEOUSLY AT BREAKFAST TIME, 40 UNTIS AT LUNCH, AND 90 UNITS AT SUPPER metFORMIN HCl Oral Tablet 1000 MG(04/22/2022) ALLERGIES: Band-Aid [place] Surg Dressing Other Bandaging Tape Other PAST MEDICAL HISTORY: Podiatry History remarkable for Foot Numbness, Fungal Nails, Leg or Foot Ulcers. The patient has a past medical history of Arthritis, Depression, DM-Medication Dependent, Poor Circulation. Neuropathy High Cholesterol SURGICAL HISTORY: Hand Tonsils HOSPITALIZATIONS: None Noted SOCIAL HISTORY: Smoking Status: Never smoker; Last Reviewed: 11/02/2022 Alcohol use: social drinker No drug use Social History Reviewed (01/16/2021 11:20:18 AM EST) FAMILY HISTORY: There is a family history of Denial of any knowledge of significant family history. Denial of any knowledge of significant family history Family History Reviewed (01/16/2021 11:20:19 AM EST) REVIEW OF SYSTEMS: Psychologic: Admits to No psych symptoms. Review of systems otherwise negative PHYSICAL EXAMINATION: Vital Signs: Weight 235 lbs; Height 5 ft 8 in; BMI 35.7 11/18/2022 9:38 AM (EST) Temperature 98.6 F; Pulse Rate 100 bpm; Blood Pressure 120 / 80 mm/Hg Vascular Exam: BL Foot DP / PT pulses +2/4 CFT less than 3 seconds to digits, skin temp warm to warm from proximal to distal BL Foot Dermatologic Exam: RIGHT 2nd amputation site wound predebridement measures 4x0.4x1.0cm and post debridement measures 4.6x0.6x1.5cm with 20:80 granular fibrotic base, surrounding slough, no erythema, no purulence, no probe to bone, no malodor, moderate serosanguinous drainage. Into level of FAT TISSUE RIGHT lateral hallux wound predebridement measures 0.3x0.2x0.1cm and post debridement measures 0.6x0.3x0.5cm with 50:50 granular fibrotic base, surrounding slough, no erythema, no purulence, no probe to bone, no malodor, moderate serosanguinous drainage. Into level of FAT TISSUE RIGHT 3rd toe tuft wound predebridement measures 0.1x0.1x0.1cm and post debridement measures 0.3x0.4x0.1cm with granular base, surrounding callus, no erythema, no purulence, no probe to bone, no malodor, moderate serosanguinous drainage. Into level of SUBCUTANEOUS TISSUE RIGHT anterior lower leg wound healed. Nails 1-5 left and 3-5 RT Bilateral are thickened, elongated and discolored with subungual debris. The nails are greater than .3mm in thickness. The discoloration is yellowish in color. Innerspaces 1-4bl are clean dry and intact. Skin texture and turgor are decreased. absent or decreased hair growth bilateral. nail changes bilateral Neurologic Exam: Comments/Other Findings: Vibratory sensations decreased BL at the MPJ, Protective sensations absent BL tested with 5.07 monofilament, and light, sharp, and temperature sensations intact bl. Muscle Testing of the Extensors, Flexors, Evertors (peroneals), and Invertors (posterior tibialis) BL leg shows 5/5 testing noted. Normal Babinski test noted bl foot after testing Orthopedic Exam: Additional Orthopedic Findings: RT partial great toe and 2nd toe amp noted DIAGNOSIS: Ulcer of right foot with fat layer exposed Right foot pain Pain of toe of right foot Type II diabetes mellitus with neurological manifestations Lymphedema of both lower extremities PVD (peripheral vascular disease) History of amputation of right great toe Amputated toe of right foot Chronic ulcer of right great toe, limited to breakdown of skin Displaced fracture of distal phalanx of left lesser toe(s), subsequent encounter for fracture with routine healing PLAN AND TREATMENT: ASSESMENT & PLAN BL Foot and Ankle and Lower extremity Exam and Evaluation carried out with a treatment plan reviewed with the patient and findings discussed with patient including alternatives, benefits, complications and risks TESTS / IMAGING / X-RAY EXAM Previous left foot XR: left heel and there is no fractures noted spurring noted heel plantar fracture second toe distal phalanx with no displacement. no signs om to distal left hallux phalanx 11/10/22 right foot XR: there is partial great toe noted with no sign of infection. second toe MPJ amp with met head resection noted. 12/22/21 PVR RESULTS: RIGHT SIDE Resting right ankle brachial index: 1.37Right toe brachial index: 0.70Normal ankle brachial index at rest in the right leg. Normal toe brachial index at rest in the right leg. Right ankle: Normal at rest. LEFT SIDE Resting left ankle brachial index: 1.33Left toe brachial index: 0.83Normal ankle brachial index at rest in the left leg. Normal toe brachial index at rest in the left leg. Left ankle: Normal at rest. 10/28/22 OR: 2nd toe amp site Cx- [employer] pinedaa. Path: 2nd toe acute OM, 2nd met head no OM. 11/11/22 left foot XR: left heel and there is no fractures noted spurring noted heel plantar fracture second toe distal phalanx with no displacement. no signs om to distal left hallux phalanx RIGHT 2nd toe amp wound stable. RIGHT 3rd toe ulcer stable. RIGHT lateral hallux ulcer stable. RIGHT 3rd toe tuft ulcer treated with sharp excisional debridement carried out of the wound with non selective sharp excisional debridement past the dermis into SUBCUTANEOUS level with use of curette and 15 scalpel blade. Devitalized tissue removed. We then flushed out the wound with wound wash sterile saline. Area numbed with lidocaine gel if sensate prior. RIGHT 2nd toe amputation site and RIGHT lateral hallux ulcer treated with sharp excisional debridement carried out of the wound with non selective sharp excisional debridement past the dermis into FASCIA and FAT level with use of curette and 15 scalpel blade. Devitalized tissue removed and we then flushed out the wound with wound wash sterile saline. Area numbed with lidocaine gel if sensate prior. Discussed importance in offloading, proper nutrition including blood sugar control and getting enough protein and vitamins, infection prevention, proper wound care in wound healing. Also discussed detrimental impact of smoking on healing. Reviewed proper wound care with patient. Dressing was applied today. To watch for signs of infection both local and systemic. These were reviewed with the patient. If seen to contact office or go to ED. To continue wound care consisting of washing the wound with soap and water or vashe solution. Then to apply dressing consisting of Jose A and allevyn to hallux and 3rd toe. To 2nd amputation site ulcer apply gentian rimma periwound, jose a to wound bed and snap vac. Today applied snap vac to RIGHT SECOND TOE AMPUTATION SITE ULCER and will plan twice a week dressing changes with this. Next plan if there is too much drainage is to order standard wound vac to help fill this void, as well as continue compression. JOSE A applied to wound base Discussed if snap vac fails or if seal breaks or if there is too much drainage patient is to take it down and to continue wound care consisting of washing the wound daily with soap and water. Then to apply dressing consisting of 1/4 iodoform packing, silver alginate, foam border, and tubigrip compression Snap Vac application Cleansed with: Vashe Applied to wound bed: Promogran , Duoderm thin applied to periwound skin close to the skin edge. Followed by Coloplast Brava barring ring to edge of naya-wound. Wound gently packed with Blue foam followed by a Blue foam bolster and covered with the suction tubing dressing. Negative pressure achieved by depressing the sosa. Pt has been instructed on how to achieve the negative pressure and alternate wound care should the SnapVac fail. Device secured on pt's leg with the holding strap. EDUCATION: The patient/family was instructed how to cleanse the wound(s). Visual demonstration on how to apply the dressing with teach back method. Signs & symptoms of infection were reviewed: Increased redness, swelling, pain, green/yellow drainage, fever and/or chills would all need to be evaluated by a Physician. Patient received typed home-going wound care instructions and has expressed intent to comply. OTHER EDUCATION: New wound care - SnapVAC. Pt has been instructed on how to achieve the negative pressure and alternate wound care should the SnapVac fail. SnapVAC handout given to and reviewed with pt as well. She knows she is at risk for further amputation such as TMA and for admission to hospital with infection. Discussed need to keep wounds dry, maceration noted. RIGHT hallux I&D site stable. Rx XR right foot- has yet to get Finish yaimaro and alan Follow up at [facility] for ulcer check Mon and THUR for snap vac changes and check XR Ulcer of right foot with fat layer exposed 707.15 L97.512 & Right foot pain 729.5 M79.671 & Pain of toe of right foot 729.5 M79.674 & Type II diabetes mellitus with neurological manifestations 250.60 E11.49 & Lymphedema of both lower extremities 457.1 I89.0 & PVD (peripheral vascular disease) 443.9 I73.9 & History of amputation of right great toe V49.71 Z89.411 & Amputated toe of right foot 895.0 S98.131A & Chronic ulcer of right great toe, limited to breakdown of skin 707.15 L97.511 & Displaced fracture of distal phalanx of left lesser toe(s), subsequent encounter for fracture with routine healing V54.19 S92.532D documented in this encounter [facility] 11-19-2022 Nurse Note Nursing Documentation Pertinent Medical History: DM2 Wound Etiology according to patient: wounds spontaneously opened up over last 2 months Patient arrived via: ambulatory with [employer]/Nursing Facility: N/A Consent captured for debridement per Dr Cici KENNEY and linda until May 2023 Consent captured for debridement per Dr. Neeraj KENNEY and linda until May 2023 Anticoagulant Therapy: N/A ACTIVE CARE PER PROVIDER: Giovanni Bolanos DPM & Hu Pickard DPM WOUND # 2 right anterior mid lower leg Combined with #3 01-13-2022 WOUND # 3 right anterior distal lower leg Combined with #2 01-13-2022 WOUND # 24 - LOCATION: Right Anterior Lower Leg - Cluster (changed to cluster on 11/10/22) CLOSED 11/16/22, Remains closed 11/19/22 WOUND ASSESSMENT: Refer to Provider's Wound Assessment Note VASCULAR ASSESSMENT BY PROVIDER: See provider wound assessment note CHF History: Yes as of February 2022, Dr. Sadler in Cardiology EDEMA: Right Foot: 2+ - not measured at today's visit Right Calf: 3+ - not measured at today's visit Left Calf: 3+ Left Foot 2+ Other: N/A MEASUREMENTS: in cm Right Calf: 39.8 Right Ankle: 23.2 Left Calf: 32.0 - not measured. Pt wearing Circaid wrap Left Ankle: 23.4 - not measured. Pt wearing Circaid wrap Length: 43.0cm - Not measured at today's visit WOUND PHOTOGRAPHY: Yes x 2 photos DEBRIDEMENT PROCEDURE BY PROVIDER: Anesthetic Used: None Other procedure: N/A Specimen collected: N/A WOUND TREATMENT PER MD ORDER: Wounds cleansed by mechanical debridement to allow provider to visualize wound base WOUND # 1 right anterior proximal lower leg WOUND #4 right posterior proximal lower leg closed 01-13-2022 WOUND #5 LOCATION: right posterior mid lower leg Closed 01-13-2022 WOUND #6 LOCATION: right posterior distal lower leg Closed 01-13-2022 WOUND #7 Left anterior lower leg - closed 02/17/22 WOUND # 8 Left anterior lateral lower leg closed 01-13-2022 WOUND #9 Left lateral ankle closed 03-24-2022 WOUND #10 Left lateral ankle- posterior closed 03-24-2022 WOUND #11 Left posterior leg proximal closed 03-24-2022 WOUND #12 Left posterior leg distal closed 03-24-2022 WOUND #13 Right Anterior Lateral steiner WOUND # 14_LOCATION: LLE anterior proximal cluster - closed 02/17/22 WOUND # 15 LOCATION: LLE Medial Anterior - closed 02/17/22 WOUND # 16_LOCATION: Left foot dorsum 1st met Head - closed 02/17/22 WOUND # 17 LOCATION: LLE Proximal lateral ankle - closed 02/17/22 WOUND #18 Right Lateral Leg superior closed 03-24-2022 WOUND #19 Right Lateral Leg inferior closed 03-24-2022 WOUND #20 Right Anterior lower leg superior closed 03-24-2022 WOUND #21 Right anterior lower leg Mid closed 03-24-2022 WOUND #22 Right anterior leg closed 03-24-2022 WOUND # 23 - LOCATION: Right 2nd Toe AMP Site L: 4.6 cm x W: 0.6 cm x D: 1.5 cm DEBRIDEMENT by provider: Fascia Cleansed with: Vashe Applied to naya-wound skin: Gentian rimma to maceration, skin prep, mastisol, & Duo-derm Applied to wound bed: Jose A, Jordy CeraRing moldable barrier ring, & Blue SNAP VAC foam foam Covered and secured with: SNAP VAC drape and connected to cartridge. Good seal achieved. WOUND # 25 - LOCATION: Right 3rd Toe Tuft L: 0.3 cm x W: 0.4 cm x D: 0.1 cm DEBRIDEMENT by provider: SubQ WOUND # 26 - LOCATION: Right Great Toe - Hallux - (new 11/10/22) L: 0.6 cm x W: 0.3 cm x D: 0.5 cm DEBRIDEMENT by provider: Fascia Cleansed with: Vashe Applied to naya-wound skin: Gentian rimma to maceration Applied to wound bed: Jose A Covered and secured with: 2x2 Allevyn silicone foam border dressing Removed at previous visit - 9 sutures in total removed 11/16/22 by Hu Pickard DPM from Wounds # 23 & 26 COMPRESSION: Single layer Tubi-Quality Assurance Tester size D to right lower leg, pt's own Circaid present on left lower leg SPECIAL NEEDS: Coordination of care - N/A Emotional support N/A OR set-up N/A Yarn Examiner N/A Incontinence needs N/A DISCHARGED in stable condition to: Home ambulatory with cane PLAN/ORDERS: Return to the wound center to see Dr. Hu Pickard DPM on the following dates: - Wednesday11/23/22 at 9:00 am - 11/26/22 at 10:00 am - Wednesday11/30/22 at 9:00 am Continue taking antibiotics, until finished and as prescribed. Continue aggressive nutritional support to assist wound healing Call [facility] for more supplies, can re-order every 30 days. Phone #: [phone] EDUCATION: The patient/family was instructed how to cleanse the wound(s). Visual demonstration on how to apply the dressing with teach back method. Signs & symptoms of infection were reviewed: Increased redness, swelling, pain, green/yellow drainage, fever and/or chills would all need to be evaluated by a Physician. Patient received typed home-going wound care instructions and has expressed intent to comply. OTHER EDUCATION: Provider discussed wound progression and wound care nurses discussed SNAP VAc infomration with pt. All of pt's questions and concerns addressed at time of visit Education performed regarding lymphedema/edema: Elevation of extremity above the heart for 30 minutes three times daily and as needed Exercise such as writing the ABC's with your toes in the air, walking and/or calf pumps Wearing compression as ordered by provider Diet controlling of sodium as instructed by provider Use of medication to help control edema. UNIVERSAL PROTOCOL / SAFETY CHECKLIST Procedure to be Performed: wound debridement Sign In: 0838 A Moment of CARE was completed. Personnel directly involved with the procedure wore the appropriate PPE (Personal Protective Equipment). No special equipment needed. Patient/Surrogate Stated/Verified: PATIENT VERIFIED(optional for EMERGENT procedures): Patient name, Date of , Relevant allergies, and The intended procedure Time Out Communication: 0839 Intended patient and procedure match the source documents. Consent documented and matches the intended procedure. No relevant labs, photos, and/or imaging studies were applicable for review. No correct side/site applicable for marking and visibility. No medications required for procedure. No fire risk assessment and interventions applicable. No implant(s) inserted. Sign Out: [id number] SIGN OUT (optional for EMERGENT procedures): No specimen collected. No instruments, equipment or retained foreign bodies applicable. Araceli Pierce RN Current HBOT Status: Active or Complete - see screening below WOUND CENTER HYPERBARIC OXYGEN THERAPY SCREENING 1. Is the patient diabetic? (If No, skip to question 5) Yes 2. Does the patient have a lower extremity wound? Yes 3. Is there exposed/involved tendon or bone? No 4. Has the wound been present for 30 days? Yes If Yes to ALL questions above, consult the Hyperbaric Center 5. Has the patient been diagnosed with osteomyelitis? No 6. Has the patient had a previous skin graft or flap at the wound? No 7. Has the patient had or been offered vascular intervention/evaluation? No 8. Does the patient have a wound at an amputation site? Yes 9. Has the patient had radiation therapy at the site of the problem? No If Yes to ANY of questions 5-9, consult the Hyperbaric Center Araceli STEWART, RN, CWOCN Portia Resendez RN documented in this encounter [facility] 11-19-2022 Instructions Araceli Pierce RN - 11/19/2022 8:14 AM EDT WOUND CARE INSTRUCTIONS- Shade Lobokler Wound location: Right lower leg Additional Information: SNAP VAC applied in the wound center on 11/19/2022. Leave in place and return to the wound center on 11/23/2022 to have your SNAP VAC and dressings changed. Avoid taking showers or baths and keep TubiGrip on right leg in place. If you notice that the sosa of the SNAP VAC has migrated upwards and it begins to show red, please push sosa downwards to preserve pressure. If you depress the sosa, and it will not stay down, remove the dressing and follow the alternative wound care instructions provided below. Compression wrap must be removed if: it becomes wet or soiled If you have numbness or tingling in your foot or toes If you have increased pain If toes become cold or discolored - Avoid sitting with legs in a dependent position or standing for long periods of time. - Attempt to lay flat and elevate your legs above the level of your heart 2-3 times daily, for 30 minutes at a time. - Be sure to continue walking and/or calf pumps and exercises to mimic writing the alphabet with your foot, as instructed - Control your sodium intake as instructed by provider - Moisturize legs daily and wear circaid wrap on left leg. Put Circaid wrap on in the morning and okay to remove at bedtime, leaving tubi-tobacco wetter size D in place on your right leg. Alternative Wound Care Instructions: - If SNAP vac must be removed, apply Vashe moistened gauze to wound and let soak for 5-10 minutes. - Wrap up as best you can with remaining ABD pads, roll gauze, & tape. - Come to next wound center appointment and bring removed SNAP vac with you to your next appointment. Right 3rd Toe Tuft & Right Great Toe: - Gather supplies - Place down a clean work surface such as new paper towel or newly cleaned towel. - Clean all metal instruments with rubbing alcohol before and after each use. - Plastic garbage bag for old dressing - Wash your hands with soap and water before and after wound care. - Moisten a 4x4 gauze with a few drops of Vashe solution and apply to all wounds. Let soak for 5-10 minutes and pat dry with clean gauze. - Cut a piece of Jose A and slightly moisten with a few drops of either normal saline or Vashe. Apply to both wound beds. - Cover with 2x2 Allevyns. - Leave dressing in place until your next wound center appointment. Apply single layer tubi-tobacco wetter size to bilateral lower legs and then wrap circaids overtop. To give your wound the best chance to heal: - Eat three balanced meals daily focusing on the protein - Control your blood sugar. Keep blood sugar less than 200 - Complete your wound care instructions as ordered - Vitamin C 500 mg twice daily - Multiple Vitamin Daily - Drink a protein shake daily - Premiere Clear or Glucerna for Diabetic patients, Nepro for renal patients and premiere for non-renal and non-diabetic patients Report any of the following signs and symptoms of infection to the Wound Center at [phone] or go to the Emergency Department: Fever or chills Increased drainage Green or yellow drainage Foul odor Increased pain Hardness around the wound Redness, warmth or swelling of the surrounding tissue Color change to the wound Evenings / Weekends / Holidays If you call the wound center at the phone number provided above, please leave a detailed message that includes your full name, birthday, and phone number. We are seeing patients during the day, so we will return your call within a 24-48 hr period in the order your call was received. There is not an on-call provider assigned to the wound center. If you have an emergency that needs to be addressed, please go the Urgent Care or the Emergency Room. Thank you for your cooperation and understanding. PLAN/ORDERS: Return to the wound center to see Dr. Hu Pickard DPM on the following dates: - Wednesday11/23/22 at 9:00 am - 11/26/22 at 10:00 am - Wednesday11/30/22 at 9:00 am Continue taking antibiotics, until finished and as prescribed. Continue aggressive nutritional support to assist wound healing Call [facility] for more supplies, can re-order every 30 days. Phone #: [phone] DOXYCYCLINE Side Effects: - The most common side effects of doxycycline include upset stomach, heartburn, and sensitivity to the sun. - Other less common side effects include rash, abdominal pain, and severe headaches. - In females there is a risk of decreased control pill effectiveness and yeast infections. - Other side effects may be possible. If you experience any of the side effects noted above, please contact our clinic. Important information: - Please take the medication with food and plenty of water. Avoid taking the medication with dairy products such as milk or yogurt. - Please sit upright for 15 minutes after taking the medication. - As this medication increases sensitivity to the sun it is recommended that you wear sunscreen daily while on the medication. Hu Pickard DPM documented in this encounter [facility] 11-17-2022 History of Presen t illness Narrative Images from the original note were not included. Problem list reviewed. CHIEF COMPLAINT: SP Amputation of RT second toe, ID 10/28/2022 DM II A1c 10.3 DLS 10/12/2022 HISTORY OF PRESENT ILLNESS: Here today for POV RT second toe amputation and ID great toe and closure of wound RT lateral great toe. She is on Cipro and doxy. She relates wound seemed to have worsened so contacted [facility] for earlier appointment. She reports more drainage. She last saw Dr Bolanos 11/11/22 and is scheduled to see him again tomorrow but wanted seen earlier. She complains of getting more forefoot pain recently. She denies increase in activity or trauma. Pain is 5/10. Here today for possible suture removal as well. referred by Dr. 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 PCN allergy HX partial amputation RT great toe 07/08/2022 and LEFT great toe wound rx circade wraps 08/14/22 CURRENT MEDICATIONS: Cephalexin Oral Tablet 500 MG(10/23/2022) Take 1 tablet three times a day for 7 day(s) Ciprofloxacin HCl Oral Tablet 500 MG(10/23/2022) Take 1 tablet twice a day for 7 day(s) diazePAM Oral Tablet 10 MG(02/19/2022) TAKE 1 TABLET 60 MIN BEFORE TEST Ofloxacin Ophthalmic Solution 0.3 %(02/09/2022) PUT 1 DROP IN LEFT EYE 4 TIMES A DAY FLUoxetine HCl Oral Capsule 40 MG(01/26/2022) Enalapril Maleate Oral Tablet 10 MG(01/26/2022) TAKE 1 TABLET BY MOUTH EVERY DAY Atorvastatin Calcium Oral Tablet 40 MG(04/16/2022) TAKE 1 TABLET BY MOUTH EVERYDAY AT BEDTIME Erythromycin Ophthalmic Ointment 5 MG/GM(02/09/2022) APPLY 1 A SMALL AMOUNT LEFT EYE 4 TIMES A DAY Atorvastatin Calcium Oral Tablet 20 MG(01/26/2022) TAKE 1 TABLET BY MOUTH EVERY DAY Jardiance Oral Tablet 25 MG(03/23/2022) Spironolactone Oral Tablet 25 MG(04/17/2022) Furosemide Oral Tablet 40 MG(03/05/2022) TAKE 1 TABLET BY MOUTH EVERY DAY HumuLIN R U-500 KwikPen Subcutaneous Solution Pen-injector 500 UNIT/ML(09/29/2021) INJECT 90 UNITS SUBCUTANEOUSLY AT BREAKFAST TIME, 40 UNTIS AT LUNCH, AND 90 UNITS AT SUPPER metFORMIN HCl Oral Tablet 1000 MG(04/22/2022) ALLERGIES: Band-Aid [place] Surg Dressing Other Bandaging Tape Other PAST MEDICAL HISTORY: Podiatry History remarkable for Foot Numbness, Fungal Nails, Leg or Foot Ulcers. The patient has a past medical history of Arthritis, Depression, DM-Medication Dependent, Poor Circulation. Neuropathy High Cholesterol SURGICAL HISTORY: Hand Tonsils HOSPITALIZATIONS: None Noted SOCIAL HISTORY: Smoking Status: Never smoker; Last Reviewed: 11/02/2022 Alcohol use: social drinker No drug use Social History Reviewed (01/16/2021 11:20:18 AM EST) FAMILY HISTORY: There is a family history of Denial of any knowledge of significant family history. Denial of any knowledge of significant family history Family History Reviewed (01/16/2021 11:20:19 AM EST) REVIEW OF SYSTEMS: Psychologic: Admits to No psych symptoms. Review of systems otherwise negative PHYSICAL EXAMINATION: Vital Signs: Weight 235 lbs; Height 5 ft 8 in; BMI 35.7 11/16/2022 3:49 PM (EST) Temperature 98.6 F; Pulse Rate 100 bpm; Blood Pressure 120 / 80 mm/Hg Vascular Exam: BL Foot DP / PT pulses +2/4 CFT less than 3 seconds to digits, skin temp warm to warm from proximal to distal BL Foot Dermatologic Exam: RT second toe Incision shows maceration there is noted sutures loosely copated and underlying wound. No signs of infection including erythema, lymphangitis, purulence, and malodor. RIGHT 2nd amputation site wound predebridement measures 4x0.4x1.0cm and post debridement measures 4.6x0.6x2.0cm with 20:80 granular fibrotic base, surrounding slough, no erythema, no purulence, no probe to bone, no malodor, moderate serosanguinous drainage. Into level of FAT TISSUE RT great toe medial Incision sutures all intact with no disruption, not well coapted, underlying wound. Incision was clean and dry, and intact. No signs of infection including erythema, lymphangitis, purulence, and malodor. Normal post-operative swelling noted. RIGHT lateral hallux wound predebridement measures 0.1x0.1x0.1cm and post debridement measures 0.7x0.4x0.2cm with 50:50 granular fibrotic base, surrounding slough, no erythema, no purulence, no probe to bone, no malodor, moderate serosanguinous drainage. Into level of SUBCUTANEOUS TISSUE RIGHT 3rd toe tuft wound predebridement measures 0.3x0.3x0.1cm and post debridement measures 0.3x0.3x0.1cm with 50:50 granular fibrotic base, surrounding callus, no erythema, no purulence, no probe to bone, no malodor, moderate serosanguinous drainage. Into level of SUBCUTANEOUS TISSUE RIGHT anterior lower leg wound healed. Nails 1-5 left and 3-5 RT Bilateral are thickened, elongated and discolored with subungual debris. The nails are greater than .3mm in thickness. The discoloration is yellowish in color. Innerspaces 1-4bl are clean dry and intact. Skin texture and turgor are decreased. absent or decreased hair growth bilateral. nail changes bilateral Neurologic Exam: Comments/Other Findings: Vibratory sensations decreased BL at the MPJ, Protective sensations absent BL tested with 5.07 monofilament, and light, sharp, and temperature sensations intact bl. Muscle Testing of the Extensors, Flexors, Evertors (peroneals), and Invertors (posterior tibialis) BL leg shows 5/5 testing noted. Normal Babinski test noted bl foot after testing Orthopedic Exam: Additional Orthopedic Findings: RT partial great toe and 2nd toe amp noted DIAGNOSIS: Ulcer of right foot with fat layer exposed Right foot pain Pain of toe of right foot Type II diabetes mellitus with neurological manifestations Lymphedema of both lower extremities PVD (peripheral vascular disease) History of amputation of right great toe Amputated toe of right foot Chronic ulcer of right great toe, limited to breakdown of skin Displaced fracture of distal phalanx of left lesser toe(s), subsequent encounter for fracture with routine healing PLAN AND TREATMENT: ASSESMENT & PLAN BL Foot and Ankle and Lower extremity Exam and Evaluation carried out with a treatment plan reviewed with the patient and findings discussed with patient including alternatives, benefits, complications and risks TESTS / IMAGING / X-RAY EXAM Previous left foot XR: left heel and there is no fractures noted spurring noted heel plantar fracture second toe distal phalanx with no displacement. no signs om to distal left hallux phalanx 11/10/22 right foot XR: there is partial great toe noted with no sign of infection. second toe MPJ amp with met head resection noted. 12/22/21 PVR RESULTS: RIGHT SIDE Resting right ankle brachial index: 1.37Right toe brachial index: 0.70Normal ankle brachial index at rest in the right leg. Normal toe brachial index at rest in the right leg. Right ankle: Normal at rest. LEFT SIDE Resting left ankle brachial index: 1.33Left toe brachial index: 0.83Normal ankle brachial index at rest in the left leg. Normal toe brachial index at rest in the left leg. Left ankle: Normal at rest. 10/28/22 OR: 2nd toe amp site Cx- Finegoldia magna. Path: 2nd toe acute OM, 2nd met head no OM. 11/11/22 left foot XR: left heel and there is no fractures noted spurring noted heel plantar fracture second toe distal phalanx with no displacement. no signs om to distal left hallux phalanx RIGHT 2nd toe amp wound worsened. RIGHT 3rd toe ulcer stable. RIGHT anterior lower leg wound healed. NEW RIGHT lateral hallux ulcer. Sutures removed. Underlying wound noted to right lateral hallux and 2nd toe amputation site RIGHT 3rd toe tuft ulcer treated with sharp excisional debridement carried out of the wound with non selective sharp excisional debridement past the dermis into SUBCUTANEOUS level with use of curette and 15 scalpel blade. Devitalized tissue removed. We then flushed out the wound with wound wash sterile saline. Area numbed with lidocaine gel if sensate prior. RIGHT 2nd toe amputation site and RIGHT lateral hallux ulcer treated with sharp excisional debridement carried out of the wound with non selective sharp excisional debridement past the dermis into FASCIA and FAT level with use of curette and 15 scalpel blade. Devitalized tissue removed and we then flushed out the wound with wound wash sterile saline. Area numbed with lidocaine gel if sensate prior. Discussed importance in offloading, proper nutrition including blood sugar control and getting enough protein and vitamins, infection prevention, proper wound care in wound healing. Also discussed detrimental impact of smoking on healing. Reviewed proper wound care with patient. Dressing was applied today. To watch for signs of infection both local and systemic. These were reviewed with the patient. If seen to contact office or go to ED. To continue wound care consisting of washing the wound with soap and water or vashe solution. Then to apply dressing consisting of jose a and allevyn to halux and 3rd toe. To 2nd amputation site ulcer apply angela rimma periwound, jose a to wound bed and snap vac. Today applied snap vac to RIGHT SECOND TOE AMPUTATION SITE ULCER and will plan twice a week dressing changes with this. Next plan if there is too much drainage is to order standard wound vac to help fill this void, as well as continue compression. JOSE A applied to wound base Discussed if snap vac fails or if seal breaks or if there is too much drainage patient is to take it down and to continue wound care consisting of washing the wound daily with soap and water. Then to apply dressing consisting of 1/4 iodoform packing, silver alginate, foam border, and tubigrip compression Snap Vac application Cleansed with: Vashe Applied to wound bed: Promogran , Duoderm thin applied to periwound skin close to the skin edge. Followed by Coloplast Brava barring ring to edge of naya-wound. Wound gently packed with Blue foam followed by a Blue foam bolster and covered with the suction tubing dressing. Negative pressure achieved by depressing the sosa. Pt has been instructed on how to achieve the negative pressure and alternate wound care should the SnapVac fail. Device secured on pt's leg with the holding strap. EDUCATION: The patient/family was instructed how to cleanse the wound(s). Visual demonstration on how to apply the dressing with teach back method. Signs & symptoms of infection were reviewed: Increased redness, swelling, pain, green/yellow drainage, fever and/or chills would all need to be evaluated by a Physician. Patient received typed home-going wound care instructions and has expressed intent to comply. OTHER EDUCATION: New wound care - SnapVAC. Pt has been instructed on how to achieve the negative pressure and alternate wound care should the SnapVac fail. SnapVAC handout given to and reviewed with pt as well. She knows she is at risk for further amputation such as TMA and for admission to hospital with infection. Discussed need to keep wounds dry, maceration noted. RIGHT hallux I&D site stable. Rx XR right foot Finish cipro and doxy Follow up at [facility] for ulcer check Mon and THUR for snap vac changes and check XR Ulcer of right foot with fat layer exposed 707.15 L97.512 & Right foot pain 729.5 M79.671 & Pain of toe of right foot 729.5 M79.674 & Type II diabetes mellitus with neurological manifestations 250.60 E11.49 & Lymphedema of both lower extremities 457.1 I89.0 & PVD (peripheral vascular disease) 443.9 I73.9 & History of amputation of right great toe V49.71 Z89.411 & Amputated toe of right foot 895.0 S98.131A & Chronic ulcer of right great toe, limited to breakdown of skin 707.15 L97.511 & Displaced fracture of distal phalanx of left lesser toe(s), subsequent encounter for fracture with routine healing V54.19 S92.532D documented in this encounter [facility] 11-16-2022 Instructions Li Munoz RN - 11/16/2022 3:30 PM EDT WOUND CARE INSTRUCTIONS- Shade Brambila Wound location: Right lower leg Additional Information: SNAP Vac applied in the wound center on 11/16/22. Leave in place and return to the wound center on 11/19/2022 to have your SNAP vac and dressings changed. Avoid taking showers or baths and keep tubi-tobacco wetter on right leg in place. If you notice that the sosa of the SNAP vac has migrated upwards and it begins to show red, please push sosa downwards to preserve pressure. If you depress the sosa, and it will not stay down, remove the dressing and follow the alternative wound care instructions provided below. Compression wrap must be removed if: it becomes wet or soiled If you have numbness or tingling in your foot or toes If you have increased pain If toes become cold or discolored - Avoid sitting with legs in a dependent position or standing for long periods of time. - Attempt to lay flat and elevate your legs above the level of your heart 2-3 times daily, for 30 minutes at a time. - Be sure to continue walking and/or calf pumps and exercises to mimic writing the alphabet with your foot, as instructed - Control your sodium intake as instructed by provider - Moisturize legs daily and wear circaid wrap on left leg. Put Circaid wrap on in the morning and okay to remove at bedtime, leaving tubi-tobacco wetter size D in place on your right leg. Alternative Wound Care Instructions: - If SNAP vac must be removed, apply Vashe moistened gauze to wound and let soak for 5-10 minutes. - Wrap up as best you can with remaining ABD pads, roll gauze, & tape. - Come to next wound center appointment and bring removed SNAP vac with you to your next appointment. Right 3rd Toe Tuft & Right Great Toe: - Gather supplies - Place down a clean work surface such as new paper towel or newly cleaned towel. - Clean all metal instruments with rubbing alcohol before and after each use. - Plastic garbage bag for old dressing - Wash your hands with soap and water before and after wound care. - Moisten a 4x4 gauze with a few drops of Vashe solution and apply to all wounds. Let soak for 5-10 minutes and pat dry with clean gauze. - Cut a piece of Jose A and slightly moisten with a few drops of either normal saline or Vashe. Apply to both wound beds. - Cover with 2x2 Allevyns. - Leave dressing in place until your next wound center appointment. Apply single layer tubi-tobacco wetter size to bilateral lower legs and then wrap circaids overtop. To give your wound the best chance to heal: - Eat three balanced meals daily focusing on the protein - Control your blood sugar. Keep blood sugar less than 200 - Complete your wound care instructions as ordered - Vitamin C 500 mg twice daily - Multiple Vitamin Daily - Drink a protein shake daily - Premiere Clear or Glucerna for Diabetic patients, Nepro for renal patients and premiere for non-renal and non-diabetic patients Report any of the following signs and symptoms of infection to the Wound Center at [phone] or go to the Emergency Department: Fever or chills Increased drainage Green or yellow drainage Foul odor Increased pain Hardness around the wound Redness, warmth or swelling of the surrounding tissue Color change to the wound Evenings / Weekends / Holidays If you call the wound center at the phone number provided above, please leave a detailed message that includes your full name, birthday, and phone number. We are seeing patients during the day, so we will return your call within a 24-48 hr period in the order your call was received. There is not an on-call provider assigned to the wound center. If you have an emergency that needs to be addressed, please go the Urgent Care or the Emergency Room. Thank you for your cooperation and understanding. PLAN/ORDERS: Return to the wound center to see Dr. Pickard either November 19 or . Schedule ahead for the next few weeks for twice weekly appointments. Cancel your appointment with Dr. Bolanos for November 17. Continue taking antibiotics as prescribed. Continue aggressive nutritional support to assist wound healing Call [facility] for more supplies, can re-order every 30 days. Please call to report the damaged supplies you received. Phone #: [phone] DOXYCYCLINE Side Effects: - The most common side effects of doxycycline include upset stomach, heartburn, and sensitivity to the sun. - Other less common side effects include rash, abdominal pain, and severe headaches. - In females there is a risk of decreased control pill effectiveness and yeast infections. - Other side effects may be possible. If you experience any of the side effects noted above, please contact our clinic. Important information: - Please take the medication with food and plenty of water. Avoid taking the medication with dairy products such as milk or yogurt. - Please sit upright for 15 minutes after taking the medication. - As this medication increases sensitivity to the sun it is recommended that you wear sunscreen daily while on the medication. Hu Pickard DPM/RIVKA/CARLA/CIARA documented in this encounter [facility] 11-16-2022 Nurse Note Nursing Documentation Pertinent Medical History: DM2 Wound Etiology according to patient: wounds spontaneously opened up over last 2 months Patient arrived via: ambulatory with [facility] Care AQS/Nursing Facility: N/A Consent captured for debridement per Dr Cici KENNEY and linda until May 2023 Consent captured for debridement per Dr. Neeraj Cooper until May 2023 Anticoagulant Therapy: N/A ACTIVE CARE PER PROVIDER: Giovanni Bolanos DPM & Hu Pickard DPM WOUND # 2 right anterior mid lower leg Combined with #3 01-13-2022 WOUND # 3 right anterior distal lower leg Combined with #2 01-13-2022 WOUND ASSESSMENT: Refer to Provider's Wound Assessment Note VASCULAR ASSESSMENT BY PROVIDER: See provider wound assessment note CHF History: Yes as of February 2022, Dr. Sadler in Cardiology EDEMA: Right Foot: 2+ Right Calf: 3+ Left Calf: 3+ Left Foot 2+ Other: N/A MEASUREMENTS: in cm Right Calf: 35.6 Right Ankle: 23.5 Left Calf: 32.0 Left Ankle: 23.4 Length: 43.0cm - Not measured at 11/10/22 visit WOUND PHOTOGRAPHY: Yes x 4 DEBRIDEMENT PROCEDURE BY PROVIDER: Anesthetic Used: None Other procedure: N/A Specimen collected: N/A WOUND TREATMENT PER MD ORDER: Wounds cleansed by mechanical debridement to allow provider to visualize wound base WOUND # 1 right anterior proximal lower leg WOUND #4 right posterior proximal lower leg closed 01-13-2022 WOUND #5 LOCATION: right posterior mid lower leg Closed 01-13-2022 WOUND #6 LOCATION: right posterior distal lower leg Closed 01-13-2022 WOUND #7 Left anterior lower leg - closed 02/17/22 WOUND # 8 Left anterior lateral lower leg closed 01-13-2022 WOUND #9 Left lateral ankle closed 03-24-2022 WOUND #10 Left lateral ankle- posterior closed 03-24-2022 WOUND #11 Left posterior leg proximal closed 03-24-2022 WOUND #12 Left posterior leg distal closed 03-24-2022 WOUND #13 Right Anterior Lateral steiner WOUND # 14_LOCATION: LLE anterior proximal cluster - closed 02/17/22 WOUND # 15 LOCATION: LLE Medial Anterior - closed 02/17/22 WOUND # 16_LOCATION: Left foot dorsum 1st met Head - closed 02/17/22 WOUND # 17 LOCATION: LLE Proximal lateral ankle - closed 02/17/22 WOUND #18 Right Lateral Leg superior closed 03-24-2022 WOUND #19 Right Lateral Leg inferior closed 03-24-2022 WOUND #20 Right Anterior lower leg superior closed 03-24-2022 WOUND #21 Right anterior lower leg Mid closed 03-24-2022 WOUND #22 Right anterior leg closed 03-24-2022 WOUND # 23 - LOCATION: Right 2nd Toe AMP Site L: 4.6 cm x W: 0.6 cm x D: 2.0 cm DEBRIDEMENT by provider: Fascia Cleansed with: Vashe Applied to naya-wound skin: Gentian rimma to maceration, skin prep, mastisol, & Duo-derm Applied to wound bed: Jose A, Stoma ring, & Blue foam Covered and secured with: Vac drape WOUND # 24 - LOCATION: Right Anterior Lower Leg - Cluster (changed to cluster on 11/10/22) L: cm x W: cm x D: cm - CLOSED 11/16/22 WOUND # 25 - LOCATION: Right 3rd Toe Tuft L: 0.3 cm x W: 0.3 cm x D: 0.2 cm DEBRIDEMENT by provider: SubQ WOUND # 26 - LOCATION: Right Great Toe Hallux - (new 11/10/22) L: 0.7 cm x W: 0.4 cm x D: 0.5 cm DEBRIDEMENT by provider: Fascia Cleansed with: Vashe Applied to naya-wound skin: Gentian rimma to maceration Applied to wound bed: Jose A Covered and secured with: 2x2 Allevyn 9 sutures in total removed 11/16/22 by Hu Pickard DPGricel from Wounds # 23 & 26 COMPRESSION: Single layer Tubi-Quality Assurance Tester size D to right lower leg, pt's own Circaid present on left lower leg SPECIAL NEEDS: Coordination of care - N/A Emotional support N/A OR set-up N/A Yarn Examiner N/A Incontinence needs N/A DISCHARGED in stable condition to: Home ambulatory with cane PLAN/ORDERS: Return to the wound center to see Dr. Pickard either November 19 or . Schedule ahead for the next few weeks for twice weekly appointments. Cancel your appointment with Dr. Bolanos for November 17. Continue taking antibiotics as prescribed. Continue aggressive nutritional support to assist wound healing Call [facility] for more supplies, can re-order every 30 days. Please call to report the damaged supplies you received. Phone #: [phone] DOXYCYCLINE Side Effects: - The most common side effects of doxycycline include upset stomach, heartburn, and sensitivity to the sun. - Other less common side effects include rash, abdominal pain, and severe headaches. - In females there is a risk of decreased control pill effectiveness and yeast infections. - Other side effects may be possible. If you experience any of the side effects noted above, please contact our clinic. Important information: - Please take the medication with food and plenty of water. Avoid taking the medication with dairy products such as milk or yogurt. - Please sit upright for 15 minutes after taking the medication. - As this medication increases sensitivity to the sun it is recommended that you wear sunscreen daily while on the medication. EDUCATION: The patient/family was instructed how to cleanse the wound(s). Visual demonstration on how to apply the dressing with teach back method. Signs & symptoms of infection were reviewed: Increased redness, swelling, pain, green/yellow drainage, fever and/or chills would all need to be evaluated by a Physician. Patient received typed home-going wound care instructions and has expressed intent to comply. OTHER EDUCATION: Provider discussed new symptoms reported by pt, wound progression, removal of sutures from Right Great Toe Hallux, new wound care, & SNAP vac application. Education performed regarding lymphedema/edema: Elevation of extremity above the heart for 30 minutes three times daily and as needed Exercise such as writing the ABC's with your toes in the air, walking and/or calf pumps Wearing compression as ordered by provider Diet controlling of sodium as instructed by provider Use of medication to help control edema. UNIVERSAL PROTOCOL / SAFETY CHECKLIST Procedure to be Performed: wound debridement Sign In: 1634 A Moment of CARE was completed. Personnel directly involved with the procedure wore the appropriate PPE (Personal Protective Equipment). Patient/Surrogate Stated/Verified: 0820 PATIENT VERIFIED(optional for EMERGENT procedures): Patient name, Date of , Relevant allergies, and The intended procedure Time Out Communication: 4090 Intended patient and procedure match the source documents. Consent documented and matches the intended procedure. Sign Out: 5249 SIGN OUT (optional for EMERGENT procedures): No specimen collected. All instruments, equipment, possible retained foreign bodies accounted for. Li Munoz RN/RIVKA/CARLA Current HBOT Status: Active or Complete - see screening below WOUND CENTER HYPERBARIC OXYGEN THERAPY SCREENING 1. Is the patient diabetic? (If No, skip to question 5) Yes 2. Does the patient have a lower extremity wound? Yes 3. Is there exposed/involved tendon or bone? No 4. Has the wound been present for 30 days? Yes If Yes to ALL questions above, consult the Hyperbaric Center 5. Has the patient been diagnosed with osteomyelitis? No 6. Has the patient had a previous skin graft or flap at the wound? No 7. Has the patient had or been offered vascular intervention/evaluation? No 8. Does the patient have a wound at an amputation site? Yes 9. Has the patient had radiation therapy at the site of the problem? No If Yes to ANY of questions 5-9, consult the Hyperbaric Center Li Munoz RN/RIVKA/CARLA documented in this encounter [facility] 11-10-2022 History of Presen t illness Narrative Images from the original note were not included. Problem list reviewed. CHIEF COMPLAINT: SP Amputation of RT second toe, ID 10/28/2022 DM II A1c 7.7 DLS 10/12/2022 HISTORY OF PRESENT ILLNESS: Here today for POV 2 RT second toe amputation and ID great oe and closure of wound RT great ote. Here for check and is on Cipro and kefllex had maceratoin last vsiit so got her to see me [facility] incase she needs high level care and or admit . She got wet last visit and was macerated in office she has been full WB using for xry check and nail care . Left great toe has wound and has no drainage Last visit she came in with infection RT second has wound and infection started 1 week ago she states and put betadine and she was put on oral abx from PCP did not let us know referred by Dr. 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 HX amputation RT great toe 07/08/2022 and LEFT great toe wound rx circade wraps 08/14/22 CURRENT MEDICATIONS: Cephalexin Oral Tablet 500 MG(10/23/2022) Take 1 tablet three times a day for 7 day(s) Ciprofloxacin HCl Oral Tablet 500 MG(10/23/2022) Take 1 tablet twice a day for 7 day(s) diazePAM Oral Tablet 10 MG(02/19/2022) TAKE 1 TABLET 60 MIN BEFORE TEST Ofloxacin Ophthalmic Solution 0.3 %(02/09/2022) PUT 1 DROP IN LEFT EYE 4 TIMES A DAY FLUoxetine HCl Oral Capsule 40 MG(01/26/2022) Enalapril Maleate Oral Tablet 10 MG(01/26/2022) TAKE 1 TABLET BY MOUTH EVERY DAY Atorvastatin Calcium Oral Tablet 40 MG(04/16/2022) TAKE 1 TABLET BY MOUTH EVERYDAY AT BEDTIME Erythromycin Ophthalmic Ointment 5 MG/GM(02/09/2022) APPLY 1 A SMALL AMOUNT LEFT EYE 4 TIMES A DAY Atorvastatin Calcium Oral Tablet 20 MG(01/26/2022) TAKE 1 TABLET BY MOUTH EVERY DAY Jardiance Oral Tablet 25 MG(03/23/2022) Spironolactone Oral Tablet 25 MG(04/17/2022) Furosemide Oral Tablet 40 MG(03/05/2022) TAKE 1 TABLET BY MOUTH EVERY DAY HumuLIN R U-500 KwikPen Subcutaneous Solution Pen-injector 500 UNIT/ML(09/29/2021) INJECT 90 UNITS SUBCUTANEOUSLY AT BREAKFAST TIME, 40 UNTIS AT LUNCH, AND 90 UNITS AT SUPPER metFORMIN HCl Oral Tablet 1000 MG(04/22/2022) ALLERGIES: Band-Aid [place] Surg Dressing Other Bandaging Tape Other PAST MEDICAL HISTORY: Podiatry History remarkable for Foot Numbness, Fungal Nails, Leg or Foot Ulcers. The patient has a past medical history of Arthritis, Depression, DM-Medication Dependent, Poor Circulation. Neuropathy High Cholesterol SURGICAL HISTORY: Hand Tonsils HOSPITALIZATIONS: None Noted SOCIAL HISTORY: Smoking Status: Never smoker; Last Reviewed: 11/02/2022 Alcohol use: social drinker No drug use Social History Reviewed (01/16/2021 11:20:18 AM EST) FAMILY HISTORY: There is a family history of Denial of any knowledge of significant family history. Denial of any knowledge of significant family history Family History Reviewed (01/16/2021 11:20:19 AM EST) REVIEW OF SYSTEMS: Psychologic: Admits to No psych symptoms. Review of systems otherwise negative PHYSICAL EXAMINATION: Vital Signs: Weight 235 lbs; Height 5 ft 8 in; BMI 35.7 11/03/2022 6:49 AM (EST) Temperature 98.6 F; Pulse Rate 100 bpm; Blood Pressure 120 / 80 mm/Hg Vascular Exam: BL Foot DP / PT pulses +2/4 CFT less than 3 seconds to digits, skin temp warm to warm from proximal to distal BL Foot Dermatologic Exam: RT second toe Incision well c shows maceration there is noted maceration third toe no maldoro sutures loosely copated . No signs of infection including erythema, lymphangitis, purulence, and malodor. Normal post-operative swelling noted. RT great toe medial Incision well coapted, sutures all intact with no disruption. Incision was clean and dry, and intact. No open areas. No signs of infection including erythema, lymphangitis, purulence, and malodor. Normal post-operative swelling noted. RT third ote ulcer level fat .2x.2x.1cm and post .3x.4x.3cm to fat layer with redness .2cc of pus, no malodor, redness noted RT lower leg anteir wound 1x.2x.1cm and psot 1x.2x.2cm to sub q level red base post RT partial great toe amp Incision well coapted with wound medial distal incino wit wound .6x.5x.1cm and post .6x.5x.2cm to fat layer Nails 1-5 left and 3-5 RT Bilateral are thickened, elongated and discolored with subungual debris. The nails are greater than .3mm in thickness. There is pain with direct palpation of the nails and lateral compression of then nail. The discoloration is yellowish in color. Innerspaces 1-4bl are clean dry and intact. Skin texture and turgor are decreased. absent or decreased hair growth bilateral . nail changes bilateral Neurologic Exam: Comments/Other Findings: Vibratory sensations decreased BL at the MPJ, Protective sensations absent BL tested with 5.07 monofilament, and light, sharp, and temperature sensations intact bl. Muscle Testing of the Extensors, Flexors, Evertors (peroneals) , and Invertors ( posterior tibialis) BL leg shows 5/5 testing noted. Normal Babinski test noted bl foot after testing Orthopedic Exam: Additional Orthopedic Findings: RT great toe amp noted right partial DIAGNOSIS: Left foot pain Right foot pain Pain of toe of left foot Pain of toe of right foot Dermatophytosis of nail Type II diabetes mellitus with neurological manifestations Acquired equinus deformity of left foot Acquired equinus deformity of right foot Lymphedema of both lower extremities PVD (peripheral vascular disease) IGTN (ingrowing toe nail) History of amputation of right great toe Acquired absence of right great toe Osteomyelitis of toe of right foot Dehiscence of operative wound, initial encounter Skin ulcer of third toe of right foot with fat layer exposed PLAN AND TREATMENT: ASSESMENT & PLAN BL Foot and Ankle and Lower extremity Exam and Evaluation carried out with a treatment plan reviewed with the patient and findings discussed with patient including alternatives, benefits, complications and risks TESTS / IMAGING / X-RAY EXAM NEW xrays taken AP MO LAT LEFT Foot weightbearing. X-ray safety and precautions were reviewed with patient and a lead apron was applied to patient. left heel and there is no fractures noted spurring noted heel plantar fracture second toe distal phalanx with no displacement. no signs om to distal left hallux phalanx NEW taken AP MO LAT RIGHT Foot weightbearing X-ray safety and precautions were reviewed with patient and a lead apron was applied to patient. there is partial great toe noted with no sign of infetion second toe MPJ amp with met head resecdtion noted, CULTURE 10/28/2022 NEG soft tissue culture Previous PVR RESULTS: RIGHT SIDE Resting right ankle brachial index: 1.37Right toe brachial index: 0.70Normal ankle brachial index at rest in the right leg.Normal toe brachial index at rest in the right leg.Right ankle: Normal at rest. LEFT SIDEResting left ankle brachial index: 1.33Left toe brachial index: 0.83Normal ankle brachial index at rest in the left leg.Normal toe brachial index at rest in the left leg.Left ankle: Normal at rest. RT second MPJ amp site shoes maceration wound over the thid toe from maceration and skin peeling debrided RT third toe and incisoin site RT foot second with Excisional debridement carried out of the wound with non selective sharp excisional debridement past the dermis into fat level with use of curette and 15 scalpel bladed debriding non viable tissue out of wound. We then flushed out the wound with wound and put dressing on. debrided RT lower leg wound wtih Excisional debridement carried out of the wound with non selective sharp excisional debridement past the dermis into SUBCUTANEOUS level with use of curette and 15 scalpel bladed debriding non viable tissue out of wound. We then flushed out the wound with wound and put dressing on. clenaed incision dressed with vashe then betadine adaptic algiante, gauze, kerlix and olegario Cont in boot fis he does not heal she may dea upw tih TMA i discusse with her and if she looses cont doxy and added CIPRO rx for cipro iw ant betadine daily , she got wet and is macerate, iw ant KEEP DRY bathing don ot get back in 1 week to remove suture Left foot pain 729.5 M79.672 & Right foot pain 729.5 M79.671 & Pain of toe of left foot 729.5 M79.675 & Pain of toe of right foot 729.5 M79.674 & Dermatophytosis of nail 110.1 B35.1 & Type II diabetes mellitus with neurological manifestations 250.60 E11.49 & Acquired equinus deformity of left foot 736.72 M21.6X2 & Acquired equinus deformity of right foot 736.72 M21.6X1 & Lymphedema of both lower extremities 457.1 I89.0 & PVD (peripheral vascular disease) 443.9 I73.9 & IGTN (ingrowing toe nail) 703.0 L60.0 & History of amputation of right great toe V49.71 Z89.411 & Acquired absence of right great toe V49.71 Z89.411 & Osteomyelitis of toe of right foot 730.27 M86.9 & Dehiscence of operative wound, initial encounter 998.32 T81.31XA & Skin ulcer of third toe of right foot with fat layer exposed 707.15 L97.512 documented in this encounter [facility] 11-10-2022 Instructions Portia Holguin RN - 11/10/2022 8:16 AM EST WOUND CARE INSTRUCTIONS- Shade Brambila Wound location: Bilateral lower legs - moisturize legs daily and wear circaid wraps. Put on in the morning and okay to remove at bedtime. COMPRESSION Compression wrap must be removed if: it becomes wet or soiled If you have numbness or tingling in your foot or toes If you have increased pain If toes become cold or discolored - Avoid sitting with legs in a dependent position or standing for long periods of time. - Attempt to lay flat and elevate your legs above the level of your heart 2-3 times daily, for 30 minutes at a time. - Be sure to continue walking and/or calf pumps and exercises to mimic writing the alphabet with your foot, as instructed - Control your sodium intake as instructed by provider Wound Location: Right second toe amputation site, 3rd toe tip, and great toe suture line -Gather supplies -Place down a clean work surface such as new paper towel or newly cleaned towel -Clean all metal instruments with rubbing alcohol before and after each use. -plastic garbage bag for old dressing - Wash your hands with soap and water before and after wound care. - Apply a Vashe' soak with gauze to the wounds for 5 minutes. Remove and pat dry - Apply Betadine to the wound and allow to dry - Cover with Calcium alginate with Silver (felt like material) - Cover with 4x4 gauze, ABD pad and Kerlix or conform - Change your dressing everyday and as needed to maintain a dry and intact dressing. Wound Location: Right anterior lower leg - Wash your hands with soap and water before and after wound care. - Apply a Vashe' soak with gauze to the wounds for 5 minutes. Remove and pat dry - Apply single layer of Adaptic (mesh like material) to wound base - Cover with Calcium alginate with Silver (felt like material) - Cover with 4x4 gauze and Kerlix or conform to secure dressing - Change your dressing everyday and as needed to maintain a dry and intact dressing. Apply double layer tubi-tobacco wetter size E to right lower leg if unable to wear your circaid. To give your wound the best chance to heal: - Eat three balanced meals daily focusing on the protein - Control your blood sugar. Keep blood sugar less than 200 - Complete your wound care instructions as ordered - Vitamin C 500 mg twice daily - Multiple Vitamin Daily - Drink a protein shake daily - Premiere Clear or Glucerna for Diabetic patients, Nepro for renal patients and premiere for non-renal and non-diabetic patients Report any of the following signs and symptoms of infection to the Wound Center at [phone] or go to the Emergency Department: Fever or chills Increased drainage Green or yellow drainage Foul odor Increased pain Hardness around the wound Redness, warmth or swelling of the surrounding tissue Color change to the wound PLAN/ORDERS: 1. Return to the wound center to see Dr Cici KENNEY 1 week 2. Prescription for Doxycycline and Cipro has been sent today to your pharmacy 3. Continue aggressive nutritional support to assist wound healing 4. PRISM - Phone: DOXYCYCLINE Side Effects: - The most common side effects of doxycycline include upset stomach, heartburn, and sensitivity to the sun. - Other less common side effects include rash, abdominal pain, and severe headaches. - In females there is a risk of decreased control pill effectiveness and yeast infections. - Other side effects may be possible. If you experience any of the side effects noted above, please contact our clinic. Important information: - Please take the medication with food and plenty of water. Avoid taking the medication with dairy products such as milk or yogurt. - Please sit upright for 15 minutes after taking the medication. - As this medication increases sensitivity to the sun it is recommended that you wear sunscreen daily while on the medication. Giovanni Bolanos DPM/arnold/ml/zl documented in this encounter [facility] 11-10-2022 Nurse Note Nursing Documentation Pertinent Medical History: DM2 Wound Etiology according to patient: wounds spontaneously opened up over last 2 months Patient arrived via: ambulatory with [facility]/Nursing Facility: N/A Consent captured for debridement per Dr Cici Cooper until May 2023 Consent captured for debridement per Dr. Neeraj Cooper until May 2023 Anticoagulant Therapy: n/a ACTIVE CARE PER PROVIDER: Giovanni Bolanos DPM WOUND # 2 right anterior mid lower leg Combined with #3 01-13-2022 WOUND # 3 right anterior distal lower leg Combined with #2 01-13-2022 WOUND ASSESSMENT: Refer to Provider's Wound Assessment Note VASCULAR ASSESSMENT BY PROVIDER: see provider wound assessment note CHF History: Yes as of February 2022, Dr. Sadlercardiology EDEMA: Right foot: 3+ Right calf: trace Left Calf: trace Left foot 1+ Other: NA MEASUREMENTS: In cm Right Calf: 33.2 Right Ankle: 24.4 Left Calf: 34.2 Left Ankle: 22.23 Length: 43.0cm - Not measured at 11/10/22 visit WOUND PHOTOGRAPHY: Yes x4 DEBRIDEMENT PROCEDURE BY PROVIDER: Anesthetic Used: None Wound # All wounds Other procedure: mechanical washing of all wounds Specimen collected: n/a WOUND TREATMENT PER MD ORDER: Wounds cleansed by mechanical debridement to allow provider to visualize wound base WOUND # 1 right anterior proximal lower leg WOUND #4 right posterior proximal lower leg closed 01-13-2022 WOUND #5 LOCATION: right posterior mid lower leg Closed 01-13-2022 WOUND #6 LOCATION: right posterior distal lower leg Closed 01-13-2022 WOUND #7 Left anterior lower leg - closed 02/17/22 WOUND # 8 Left anterior lateral lower leg closed 01-13-2022 WOUND #9 Left lateral ankle closed 03-24-2022 WOUND #10 Left lateral ankle- posterior closed 03-24-2022 WOUND #11 Left posterior leg proximal closed 03-24-2022 WOUND #12 Left posterior leg distal closed 03-24-2022 WOUND #13 Right Anterior Lateral steiner WOUND # 14_LOCATION: LLE anterior proximal cluster - closed 02/17/22 WOUND # 15 LOCATION: LLE Medial Anterior - closed 02/17/22 WOUND # 16_LOCATION: Left foot dorsum 1st met Head - closed 02/17/22 WOUND # 17 LOCATION: LLE Proximal lateral ankle - closed 02/17/22 WOUND #18 Right Lateral Leg superior closed 03-24-2022 WOUND #19 Right Lateral Leg inferior closed 03-24-2022 WOUND #20 Right Anterior lower leg superior closed 03-24-2022 WOUND #21 Right anterior lower leg Mid closed 03-24-2022 WOUND #22 Right anterior leg closed 03-24-2022 WOUND # 23 LOCATION: Right second toe amp site DEBRIDEMENT by provider: Fascia Post debridement measurements (if applicable) : L: 5.0 cm x W: 1.0 cm x D: 0.3 cm Sutures remain intact Cleansed with: Vashe' Applied to naya-wound skin: Gentian rimma to maceration Applied to wound bed: Calcium Alginate Ag Covered and secured with: 4x4s, 2 inch conform wrap Other: n/a WOUND # 24 LOCATION: Right anterior lower leg cluster (changed to cluster on 11/10/22) DEBRIDEMENT by provider: SQ Post debridement measurements (if applicable) : L: 3.8 cm x W: 4.4 cm x D: 0.1 cm Cleansed with: Vashe' Applied to naya-wound skin: Gentian rimma to maceration Applied to wound bed: Adaptic, Calcium Alginate Ag Covered and secured with: 4x4s, 4 Conform wrap Other: n/a WOUND # 25 LOCATION: Right 3rd toe tuft DEBRIDEMENT by provider: Fascia Post debridement measurements (if applicable) : L: 0.8 cm x W: 1.0 cm x D: 0.3 cm WOUND # 26 LOCATION: Right great toe hallux - new 11/10/22 DEBRIDEMENT by provider: n/a Post debridement measurements (if applicable) : L: 1.5 cm x W: 0 cm x D: 0.1 cm Sutures intact and well approximated Cleansed with: Vashe' Applied to naya-wound skin: gentian rimma to maceration Applied to wound bed: Calcium alginate with AG, ABD Covered and secured with: 4x4s, 2 inch conform wrap Other: n/a COMPRESSION: Double layer Tubi-Quality Assurance Tester size D to right lower leg, pt's own Circaid present on left leg SPECIAL NEEDS: Coordination of care N/A Emotional support N/A OR set-up N/A Yarn Examiner N/A Incontinence needs N/A DISCHARGED in stable condition to: Home ambulatory with cane PLAN/ORDERS: 1. Return to the wound center to see Dr Bolanos DPGricel 1 week 2. Prescription for Doxycycline and Cipro has been sent today to your pharmacy 3. Continue aggressive nutritional support to assist wound healing 4. PRISM - Phone: DOXYCYCLINE Side Effects: - The most common side effects of doxycycline include upset stomach, heartburn, and sensitivity to the sun. - Other less common side effects include rash, abdominal pain, and severe headaches. - In females there is a risk of decreased control pill effectiveness and yeast infections. - Other side effects may be possible. If you experience any of the side effects noted above, please contact our clinic. Important information: - Please take the medication with food and plenty of water. Avoid taking the medication with dairy products such as milk or yogurt. - Please sit upright for 15 minutes after taking the medication. - As this medication increases sensitivity to the sun it is recommended that you wear sunscreen daily while on the medication. EDUCATION: The patient/family was instructed how to cleanse the wound(s). Visual demonstration on how to apply the dressing with teach back method. Signs & symptoms of infection were reviewed: Increased redness, swelling, pain, green/yellow drainage, fever and/or chills would all need to be evaluated by a Physician. Patient received typed home-going wound care instructions and has expressed intent to comply. OTHER EDUCATION: Dr. Bolanos discussed wound progression, debridement, extended antibiotic therapy, folllow up Education performed regarding lymphedema/edema: Elevation of extremity above the heart for 30 minutes three times daily and as needed Exercise such as writing the ABC's with your toes in the air, walking and/or calf pumps Wearing compression as ordered by provider Diet controlling of sodium as instructed by provider Use of medication to help control edema. UNIVERSAL PROTOCOL / SAFETY CHECKLIST Procedure to be Performed: wound debridement Sign In: 0811 A Moment of CARE was completed. Personnel directly involved with the procedure wore the appropriate PPE (Personal Protective Equipment). Patient/Surrogate Stated/Verified: 08 PATIENT VERIFIED(optional for EMERGENT procedures): Patient name, Date of , Relevant allergies, and The intended procedure Time Out Communication: 08 Intended patient and procedure match the source documents. Consent documented and matches the intended procedure. Sign Out: 08 SIGN OUT (optional for EMERGENT procedures): No specimen collected. All instruments, equipment, possible retained foreign bodies accounted for. Current HBOT Status: Active or Complete - see screening below WOUND CENTER HYPERBARIC OXYGEN THERAPY SCREENING 1. Is the patient diabetic? (If No, skip to question 5) Yes 2. Does the patient have a lower extremity wound? Yes 3. Is there exposed/involved tendon or bone? No 4. Has the wound been present for 30 days? Yes If Yes to ALL questions above, consult the Hyperbaric Center 5. Has the patient been diagnosed with osteomyelitis? No 6. Has the patient had a previous skin graft or flap at the wound? No 7. Has the patient had or been offered vascular intervention/evaluation? No 8. Does the patient have a wound at an amputation site? Yes 9. Has the patient had radiation therapy at the site of the problem? No If Yes to ANY of questions 5-9, consult the Hyperbaric Center Portia Holguin RN/yesica/kwesi documented in this encounter [facility] 11-09-2022 History of Presen t illness Narrative Images from the original note were not included. Problem list reviewed. CHIEF COMPLAINT: SP Amputation of RT second toe, ID 10/28/2022 with wound dehisence and check right 3rd toe wound and NEW right anterior lower leg wound DM II A1c 7.7 (down from 10.3), neuro DLS 10/28/22 HISTORY OF PRESENT ILLNESS: Here today for POV 3 SP RT second toe amputation and ID great toe and closure of wound RT great toe. Here for check and is on Cipro and finished keflex. She is being seen for my collogue Dr Bolanos to monitor infection. Patient was previously encouraged to be admitted for treatment but refused so is being treated with outpatient antibiotics and having close follow up. There was concern over the 3rd toe. She is to see Dr Bolanos again on Wednesday. She denies pain due to neuropathy. She has NEW wound to right lower leg. She is unsure how it happens. She relates she is getting quite a bit of clear drainage from area. She relates she hasn't been wearing her circade wraps on this side since surgery. She relates she normally has swelling and some pinkness to her skin from vascular issues. She has seen Dr Moore in vascular in the past who only recommended compression. She has circade wraps. referred by Dr. 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 PCN allergy HX amputation RT great toe 07/08/2022 and right 2nd toe amputation and hallux I&D 10/28/22 Hx LEFT great toe wound rx circade wraps 08/14/22 CURRENT MEDICATIONS: Cephalexin Oral Tablet 500 MG(10/23/2022) Take 1 tablet three times a day for 7 day(s) Ciprofloxacin HCl Oral Tablet 500 MG(10/23/2022) Take 1 tablet twice a day for 7 day(s) diazePAM Oral Tablet 10 MG(02/19/2022) TAKE 1 TABLET 60 MIN BEFORE TEST Ofloxacin Ophthalmic Solution 0.3 %(02/09/2022) PUT 1 DROP IN LEFT EYE 4 TIMES A DAY FLUoxetine HCl Oral Capsule 40 MG(01/26/2022) Enalapril Maleate Oral Tablet 10 MG(01/26/2022) TAKE 1 TABLET BY MOUTH EVERY DAY Atorvastatin Calcium Oral Tablet 40 MG(04/16/2022) TAKE 1 TABLET BY MOUTH EVERYDAY AT BEDTIME Erythromycin Ophthalmic Ointment 5 MG/GM(02/09/2022) APPLY 1 A SMALL AMOUNT LEFT EYE 4 TIMES A DAY Atorvastatin Calcium Oral Tablet 20 MG(01/26/2022) TAKE 1 TABLET BY MOUTH EVERY DAY Jardiance Oral Tablet 25 MG(03/23/2022) Spironolactone Oral Tablet 25 MG(04/17/2022) Furosemide Oral Tablet 40 MG(03/05/2022) TAKE 1 TABLET BY MOUTH EVERY DAY HumuLIN R U-500 KwikPen Subcutaneous Solution Pen-injector 500 UNIT/ML(09/29/2021) INJECT 90 UNITS SUBCUTANEOUSLY AT BREAKFAST TIME, 40 UNTIS AT LUNCH, AND 90 UNITS AT SUPPER metFORMIN HCl Oral Tablet 1000 MG(04/22/2022) ALLERGIES: Band-Aid [place] Surg Dressing Other Bandaging Tape Other PAST MEDICAL HISTORY: Podiatry History remarkable for Foot Numbness, Fungal Nails, Leg or Foot Ulcers. The patient has a past medical history of Arthritis, Depression, DM-Medication Dependent, Poor Circulation. Neuropathy High Cholesterol SURGICAL HISTORY: Hand Tonsils HOSPITALIZATIONS: None Noted SOCIAL HISTORY: Smoking Status: Never smoker; Last Reviewed: 11/02/2022 Alcohol use: social drinker No drug use Social History Reviewed (01/16/2021 11:20:18 AM EST) FAMILY HISTORY: There is a family history of Denial of any knowledge of significant family history. Denial of any knowledge of significant family history Family History Reviewed (01/16/2021 11:20:19 AM EST) REVIEW OF SYSTEMS: Psychologic: Admits to No psych symptoms. Review of systems otherwise negative PHYSICAL EXAMINATION: Vital Signs: Weight 235 lbs; Height 5 ft 8 in; BMI 35.7 11/06/2022 8:47 AM (EST) Temperature 98.6 F; Pulse Rate 100 bpm; Blood Pressure 120 / 80 mm/Hg Vascular Exam: DP pulses of the RIGHT 0/4 and LEFT foot are +1/4 PT pulses of the RIGHT 0/4 and LEFT foot are +1/4 RIGHT DP/PT are biphasic on doppler CFT is within normal limits, less than 3s to all digits, both feet. Skin temperature from proximal to distal is warm to warm, both feet. RLE edema, +2 pitting Dermatologic Exam: RIGHT medial great toe incision well coapted, sutures intact, normal post operative edema and erythema, appropriate drainage, no signs of infection. 2nd toe amp site incision dehisence noted with suture intact but loosened, underlying wound RIGHT 2nd toe amputation site wound predebridement measures 5.2x0.8x0.3cm and post debridement measures 5.5x1.0x0.9cm with pre fibrotic base and post 50:50 granular fibrotic base, surrounding slough, erythema, no purulence, surrounding maceration, no probe to bone, no malodor, moderate serosanguinous drainage. Into level of FAT TISSUE RIGHT 3rd toe tuft wound predebridement measures 0.4x0.4x0.1cm and post debridement measures 0.6x0.6x0.2cm with 50:50 granular fibrotic base, surrounding slough, no erythema, no purulence, no probe to bone, no malodor, moderate serosanguinous drainage. Into level of SUBCUTANEOUS TISSUE RIGHT anterior lower leg wound predebridement measures 2.2x0.2x0.1cm and post debridement measures 2.4x0.4x0.2cm with granular base, surrounding slough, no erythema, no purulence, no probe to bone, no malodor, heavy serous drainage. Into level of SUBCUTANEOUS TISSUE Nails 1-5 LEFT and 3-5 RIGHT are thickened, elongated and discolored with subungual debris. The nails are greater than .3mm in thickness. The discoloration is yellowish in color. Innerspaces 1-4 bl are clean dry and intact. Skin texture and turgor are decreased. absent or decreased hair growth bilateral. nail changes bilateral Neurologic Exam: Comments/Other Findings: Vibratory sensations decreased BL at the MPJ, Protective sensations absent BL tested with 5.07 monofilament, and light, sharp, and temperature sensations intact bl. Muscle Testing of the Extensors, Flexors, Evertors (peroneals), and Invertors (posterior tibialis) BL leg shows 5/5 testing noted. Normal Babinski test noted bl foot after testing Orthopedic Exam: Additional Orthopedic Findings: RT partial great toe and full 2nd toe amputation RIGHT 3rd toe contracture DIAGNOSIS: Type II diabetes mellitus with neurological manifestations Lymphedema of both lower extremities PVD (peripheral vascular disease) History of amputation of right great toe Osteomyelitis of toe of right foot Cellulitis of right foot History of partial ray amputation of second toe of right foot Ulcer of right lower extremity, limited to breakdown of skin Ulcer of right foot with fat layer exposed Ulcer of right foot limited to breakdown of skin Dehiscence of surgical wound PLAN AND TREATMENT: ASSESMENT & PLAN BL Foot and Ankle and Lower extremity Exam and Evaluation carried out with a treatment plan reviewed with the patient and findings discussed with patient including alternatives, benefits, complications and risks TESTS / IMAGING / X-RAY EXAM Previous left foot XR: left heel and there is no fractures noted spurring noted heel plantar fracture second toe distal phalanx with no displacement. no signs om to distal left hallux phalanx 11/10/22 right foot XR: there is partial great toe noted with no sign of infection. second toe MPJ amp with met head resection noted. 12/22/21 PVR RESULTS: RIGHT SIDE Resting right ankle brachial index: 1.37Right toe brachial index: 0.70Normal ankle brachial index at rest in the right leg. Normal toe brachial index at rest in the right leg. Right ankle: Normal at rest. LEFT SIDE Resting left ankle brachial index: 1.33Left toe brachial index: 0.83Normal ankle brachial index at rest in the left leg. Normal toe brachial index at rest in the left leg. Left ankle: Normal at rest. 10/28/22 OR: 2nd toe amp site Cx- Toby sewell. Path: 2nd toe acute OM, 2nd met head no OM. RIGHT 2nd toe amp wound improved. RIGHT 3rd toe ulcer stable. NEW RIGHT anterior lower leg wound. RIGHT anterior lower leg and RIGHT 3rd toe tuft ulcer treated with sharp excisional debridement carried out of the wound with non selective sharp excisional debridement past the dermis into SUBCUTANEOUS level with use of curette and 15 scalpel blade. Devitalized tissue removed. We then flushed out the wound with wound wash sterile saline. Area numbed with lidocaine gel if sensate prior. RIGHT 2nd toe amputation site ulcer treated with sharp excisional debridement carried out of the wound with non selective sharp excisional debridement past the dermis into FASCIA and FAT level with use of curette and 15 scalpel blade. Devitalized tissue removed and we then flushed out the wound with wound wash sterile saline. Area numbed with lidocaine gel if sensate prior. Discussed importance in offloading, proper nutrition including blood sugar control and getting enough protein and vitamins, infection prevention, proper wound care in wound healing. Also discussed detrimental impact of smoking on healing. Reviewed proper wound care with patient. Dressing was applied today. To watch for signs of infection both local and systemic. These were reviewed with the patient. If seen to contact office or go to ED. To continue wound care consisting of washing the wound with soap and water or vashe solution. Then to apply dressing consisting of betadine adaptic, silver alginate, gauze wrap, tubigrip She knows she is at risk for further amputation such as TMA and for admission to hospital with infection. Discussed need to keep wounds dry, maceration noted. RIGHT hallux I&D site stable. Finished keflex Rx doxy Finish cipro Follow up at [facility] Tues with Dr Bolanos. Possible suture removal. If worsens to go to ED. Type II diabetes mellitus with neurological manifestations 250.60 E11.49 & Lymphedema of both lower extremities 457.1 I89.0 & PVD (peripheral vascular disease) 443.9 I73.9 & History of amputation of right great toe V49.71 Z89.411 & Osteomyelitis of toe of right foot 730.27 M86.9 & Cellulitis of right foot 682.7 L03.115 & History of partial ray amputation of second toe of right foot V49.72 Z89.421 & Ulcer of right lower extremity, limited to breakdown of skin 707.10 L97.911 & Ulcer of right foot with fat layer exposed 707.15 L97.512 & Ulcer of right foot limited to breakdown of skin 707.15 L97.511 & Dehiscence of surgical wound 998.32 T81.31XA documented in this encounter [facility] 11-09-2022 Miscellaneous Notes Patient is scheduled. Please review and advise. documented in this encounter [facility] 11-06-2022 Instructions Rosa Maria Lopes RN - 11/06/2022 8:51 AM EST WOUND CARE INSTRUCTIONS- Shade Brambila Wound location: Bilateral lower legs - moisturize legs daily and wear circaid wraps. Put on in the morning and okay to remove at bedtime. COMPRESSION Compression wrap must be removed if: it becomes wet or soiled If you have numbness or tingling in your foot or toes If you have increased pain If toes become cold or discolored - Avoid sitting with legs in a dependent position or standing for long periods of time. - Attempt to lay flat and elevate your legs above the level of your heart 2-3 times daily, for 30 minutes at a time. - Be sure to continue walking and/or calf pumps and exercises to mimic writing the alphabet with your foot, as instructed - Control your sodium intake as instructed by provider Wound Location: Right second toe amputation site -Gather supplies -Place down a clean work surface such as new paper towel or newly cleaned towel -Clean all metal instruments with rubbing alcohol before and after each use. -plastic garbage bag for old dressing - Wash your hands with soap and water before and after wound care. - Apply Betadine to the wound base do not soak wound - Cover with Calcium alginate with Silver (felt like material) - Cover with 4x4 gauze and Kerlix or conform - Change your dressing everyday and as needed to maintain a dry and intact dressing. Wound Location: Right anterior lower leg - Wash your hands with soap and water before and after wound care. - Apply single layer of Adaptic to wound base - Cover with Calcium alginate with Silver (felt like material) - Cover with 4x4 gauze and Kerlix or conform to secure dressing - Change your dressing everyday and as needed to maintain a dry and intact dressing. Apply double layer tubi-tobacco wetter size E to right lower leg if unable to wear your circaid. To give your wound the best chance to heal: - Eat three balanced meals daily focusing on the protein - Control your blood sugar. Keep blood sugar less than 200 - Complete your wound care instructions as ordered - Vitamin C 500 mg twice daily - Multiple Vitamin Daily - Drink a protein shake daily - Premiere Clear or Glucerna for Diabetic patients, Nepro for renal patients and premiere for non-renal and non-diabetic patients Report any of the following signs and symptoms of infection to the Wound Center at [phone] or go to the Emergency Department: Fever or chills Increased drainage Green or yellow drainage Foul odor Increased pain Hardness around the wound Redness, warmth or swelling of the surrounding tissue Color change to the wound PLAN/ORDERS: 1. Return to the wound center to see Dr Cici KENNEY WednesdayNovember 10 at 8:00 am 2. Prescription for Doxycycline sent today to your pharmacy 3. Finish your current Cipro antibiotic along with starting the new Doxycyline antibiotic ordered today 4. Continue aggressive nutritional support to assist wound healing 5. PRISM - Phone: Hu Pickard DPM /ELLIOT/KWESI documented in this encounter [facility] 11-06-2022 Nurse Note Nursing Documentation Pertinent Medical History: DM2 Wound Etiology according to patient: wounds spontaneously opened up over last 2 months Patient arrived via: ambulatory with [employer]/Nursing Facility: N/A Consent captured for debridement per Dr Cici KENNEY and linda until June 2022 Consent captured for debridement per Dr. Neeraj Cooper until May 2023 Anticoagulant Therapy: n/a ACTIVE CARE PER PROVIDER: Giovanni Bolanos DPM WOUND # 2 right anterior mid lower leg Combined with #3 01-13-2022 WOUND # 3 right anterior distal lower leg Combined with #2 01-13-2022 WOUND ASSESSMENT: Refer to Provider's Wound Assessment Note VASCULAR ASSESSMENT BY PROVIDER: see provider wound assessment note CHF History: Yes as of February 2022, Dr. [facility] EDEMA: Right foot: 1+ Right calf: 1+ Left Calf: 1+ not assessed 11/06/22 Left foot 1+ not assessed 11/06/22 Other: NA MEASUREMENTS: In cm Right Calf: 39.6 cm Right Ankle: 24.5 cm Left Calf: 33.5 cm not measured 11/06/22 Left Ankle: 22.0 cm not measured 11/06/22 Length: 43.0cm - Not measured at today's visit WOUND PHOTOGRAPHY: Yes x3 DEBRIDEMENT PROCEDURE BY PROVIDER: Anesthetic Used: None Wound # All wounds Other procedure: mechanical washing of all wounds Specimen collected: n/a WOUND TREATMENT PER MD ORDER: Wounds cleansed by mechanical debridement to allow provider to visualize wound base WOUND # 1 right anterior proximal lower leg WOUND #4 right posterior proximal lower leg closed 01-13-2022 WOUND #5 LOCATION: right posterior mid lower leg Closed 01-13-2022 WOUND #6 LOCATION: right posterior distal lower leg Closed 01-13-2022 WOUND #7 Left anterior lower leg - closed 02/17/22 WOUND # 8 Left anterior lateral lower leg closed 01-13-2022 WOUND #9 Left lateral ankle closed 03-24-2022 WOUND #10 Left lateral ankle- posterior closed 03-24-2022 WOUND #11 Left posterior leg proximal closed 03-24-2022 WOUND #12 Left posterior leg distal closed 03-24-2022 WOUND #13 Right Anterior Lateral steiner WOUND # 14_LOCATION: LLE anterior proximal cluster - closed 02/17/22 WOUND # 15 LOCATION: LLE Medial Anterior - closed 02/17/22 WOUND # 16_LOCATION: Left foot dorsum 1st met Head - closed 02/17/22 WOUND # 17 LOCATION: LLE Proximal lateral ankle - closed 02/17/22 WOUND #18 Right Lateral Leg superior closed 03-24-2022 WOUND #19 Right Lateral Leg inferior closed 03-24-2022 WOUND #20 Right Anterior lower leg superior closed 03-24-2022 WOUND #21 Right anterior lower leg Mid closed 03-24-2022 WOUND #22 Right anterior leg closed 03-24-2022 WOUND # 23 LOCATION: Right second toe amp site DEBRIDEMENT by provider: fat Post debridement measurements (if applicable) : L: 5.5 cm x W: 1.0 cm x D: 0.9 cm Cleansed with: NS Applied to naya-wound skin: Betadine to maceration Applied to wound bed: Calcium Alginate Ag Covered and secured with: 4x4s, 2 inch conform wrap Other: WOUND # 24 LOCATION: Right anterior lower leg DEBRIDEMENT by provider: SQ Post debridement measurements (if applicable) : L: 2.4 cm x W: 0.4 cm x D: 0.2 cm Cleansed with: NS Applied to naya-wound skin: Applied to wound bed: Adaptic, Calcium Alginate Ag Covered and secured with: 4x4s, 4 Conform wrap Other: WOUND # 25 LOCATION: Right 3rd toe tuft DEBRIDEMENT by provider: SQ Post debridement measurements (if applicable) : L: 0.6 cm x W: 0.6 cm x D: 0.2 cm Cleansed with: NS Applied to naya-wound skin: Betadine Applied to wound bed: Calcium Alginate Ag Covered and secured with: gauze, 2conform wrap Other: COMPRESSION: Double layer Tubi-Quality Assurance Tester size E to right lower leg, pt's own Circaid present on left leg SPECIAL NEEDS: Coordination of care N/A Emotional support N/A OR set-up N/A Yarn Examiner N/A Incontinence needs N/A DISCHARGED in stable condition to: Home ambulatory with cane PLAN/ORDERS: 1. Return to the wound center to see Dr Cici KENNEY WednesdayNovember 10 at 8:00 am 2. Prescription for Doxycycline sent today to your pharmacy 3. Finish your current Cipro antibiotic along with starting the new Doxycyline antibiotic ordered today 4. Continue aggressive nutritional support to assist wound healing 5. PRISM - Phone: EDUCATION: The patient/family was instructed how to cleanse the wound(s). Visual demonstration on how to apply the dressing with teach back method. Signs & symptoms of infection were reviewed: Increased redness, swelling, pain, green/yellow drainage, fever and/or chills would all need to be evaluated by a Physician. Patient received typed home-going wound care instructions and has expressed intent to comply. OTHER EDUCATION: debridement, signs/symptoms of infection, new wound care, keep Wednesday appointment with Dr. Bolanos, importance of wearing compression, new antibiotic Education performed regarding lymphedema/edema: Elevation of extremity above the heart for 30 minutes three times daily and as needed Exercise such as writing the ABC's with your toes in the air, walking and/or calf pumps Wearing compression as ordered by provider Diet controlling of sodium as instructed by provider Use of medication to help control edema. UNIVERSAL PROTOCOL / SAFETY CHECKLIST Procedure to be Performed: wound debridement Sign In: 0816 A Moment of CARE was completed. Personnel directly involved with the procedure wore the appropriate PPE (Personal Protective Equipment). Patient/Surrogate Stated/Verified: 0820 PATIENT VERIFIED(optional for EMERGENT procedures): Patient name, Date of , Relevant allergies, and The intended procedure Time Out Communication: 0830 Intended patient and procedure match the source documents. Consent documented and matches the intended procedure. Sign Out: 0840 SIGN OUT (optional for EMERGENT procedures): No specimen collected. All instruments, equipment, possible retained foreign bodies accounted for. Rosa Maria Lopes RN/ZL Current HBOT Status: Active or Complete - see screening below WOUND CENTER HYPERBARIC OXYGEN THERAPY SCREENING 1. Is the patient diabetic? (If No, skip to question 5) Yes 2. Does the patient have a lower extremity wound? Yes 3. Is there exposed/involved tendon or bone? No 4. Has the wound been present for 30 days? Yes If Yes to ALL questions above, consult the Hyperbaric Center 5. Has the patient been diagnosed with osteomyelitis? No 6. Has the patient had a previous skin graft or flap at the wound? No 7. Has the patient had or been offered vascular intervention/evaluation? No 8. Does the patient have a wound at an amputation site? Yes 9. Has the patient had radiation therapy at the site of the problem? No If Yes to ANY of questions 5-9, consult the Hyperbaric Center Rosa Maria Lopes RN documented in this encounter [facility] 10-30-2022 Miscellaneous Notes Patient coming in on Wednesday for her first injection. Images from the original note were not included. DO Michael Small [facility] Triage Nurse Pool 3 minutes ago (3:02 PM) VB Spoke to endocrine, recommend monthly b12 injections instead of b12 oral supplement. Order placed Thank you documented in this encounter [facility] 09-26-2022 Instructions Dennis Garcia MD - 09/26/2022 8:47 AM EST Do the full course of the keflex Neopsorin Keep clean and dry Let us know if anything changes or worsens Should start resolving in the next 1-2 weeks documented in this encounter [facility] 09-26-2022 History of Presen t illness Narrative Shade Brambila is a 62 year old female presenting for Laceration (Left pointer finger) Has had this for 1 week She had clipped her nails and caugh her skin She had no bleeding No pain, No d/c from the area, No redness, No warmth HISTORIES: PAST MEDICAL HISTORY Diagnosis Date Charcot left foot due to diabetes mellitus (HCC) 05/2013 subsequent to left foot fracture Depression Diabetes (HCC) 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 Vitamin D deficiency 01/05/2017 PAST SURGICAL HISTORY Procedure Laterality Date AMPUTATION TOE,MT-P JT Right 07/2022 Hallux DILATION & CURETTAGE DX&/THER NONOBSTETRIC x3 EXTENSIVE HAND SURGERY Dupuytren contracture TONSILLECTOMY HX FAMILY HISTORY Problem Relation Age of Onset Heart Father CHF Hypertension Father Hypertension Mother other (polycystic kidney disease) Mother Cancer Paternal Aunt breast CA Diabetes Brother other (CHF) Paternal Grandmother Coronary Artery Disease Brother MD and at age 45 Social History: Social History Tobacco Use Smoking status: Never Smokeless tobacco: Never Vaping Use Vaping Use: Never used Substance Use Topics Alcohol use: Yes Comment: Occ Drug use: No Allergies: ALLERGIES Allergen Reactions Codeine Other: See Comments Patient states Makes her Hyper Medications: cyanocobalamin (VITAMIN B-12) 1,000 mcg tab Take 1 tablet by mouth once daily. insulin regular human, CONCENTRATED 500 UNIT/ML, (HUMULIN R) 500 unit/mL (3 mL) inpn 100 units sc at breakfast, 40 units at lunch, 80 units at supper. blood sugar diagnostic (ACCU-CHEK JOSE PLUS TEST STRP) test strip USE TO TEST BLOOD GLUCOSE 3 TIMES DAILY. ibuprofen (ADVIL ORAL) Take 3 tablets by mouth. metFORMIN (GLUCOPHAGE) 1,000 mg tablet Take 1 tablet by mouth twice daily with meals. E11.3599 atorvastatin (LIPITOR) 40 mg tablet Take 1 tablet by mouth once daily. empagliflozin (JARDIANCE) 25 mg tablet Take 1 tablet by mouth daily with breakfast. spironolactone (ALDACTONE) 25 mg tablet Take 12.5 mg by mouth once daily. Take half tablet by mouth daily furosemide (LASIX ORAL) Take 40 mg by mouth once daily. FLUoxetine (PROZAC) 40 mg capsule Take by mouth q 24 HR. lancets (ONE TOUCH DELICA) 33 gauge USE TO BLOOD GLUCOSE 3 TIMES DAILY. INSULIN DEPENDENT E11.3299, E11.65, Z79.4 insulin needles, DISPOSABLE, (BD INSULIN PEN NEEDLE UF) 31 gauge x 5/16 FOUR DAILY FOR INSULIN INJECTIONS. enalapril (VASOTEC) 10 mg tablet Take 1 tablet by mouth once daily. Blood-Glucose Meter misc Use to test blood glucose 3 times daily. Insulin Dependent E11.3299, E11.65, Z79.4 Cholecalciferol, Vitamin D3, 50 mcg (2,000 unit) cap Take 1 tablet by mouth once daily. REVIEW OF SYSTEMS See HPI PHYSICAL EXAMINATION: BP 118/60 (BP Site: Left Arm, BP Position: Sitting, BP Cuff Size: Regular Adult) Pulse 83 Temp 36.1 C (97 F) (Temporal) Wt 101.2 kg (223 lb) SpO2 97% BMI 33.91 kg/m General Appearance: Well appearing, alert, in no acute distress, well-hydrated, well nourished.. Extremities: Left index finger reveals a superficial sore at the tip with some surrounding callus, no discharge, no bleeding, no redness, nontender to touch, no streaking up the finger, nail is normal ASSESSMENT/PLAN: 1. Injury of finger of left hand, initial encounter - ICD9: 959.5, ICD10: S69.92XA Does not appear infected Patient had previous history of osteomyelitis in her toe which required amputation that she is concerned about Will be more proactive Keflex x7 days Neosporin Continue to monitor and if anything drastically changes or worsens or wound does not resolve, she will let us know - CEPHALEXIN 500 MG CAPSULE Dennis Garcia MD . Dennis Garcia MD BP CONTROLLED (<130/80) Never done HPV TESTING Never done COLORECTAL CANCER SCREENING Never done SHINGRIX VACCINE(1 of 2) Never done PAP TESTING due on 01/01/2018 Patient was notified during this office visit to schedule any future appointment's recommendations by provider after today's appointment- FOLLOW UP APPOINTMENT REMINDER (GREEN) CARD GIVEN AT THIS VISIT. PATIENT GAVE VERBAL UNDERSTANDING. Chance Sanders) documented in this encounter [facility] 09-25-2022 Miscellaneous Notes Called and she got in with PCP tomorrow 09/26/22. CLOSED She should go to Urgent Care or ED and get it evaluated. Patient called and left voice mail to report that she cut her fingernail and skin around it about a week ago and it is swollen and white in color. She is worried about infection since she did this to her toe this past year and needed it amputated. Please review and advise. documented in this encounter [facility] 09-23-2022 Instructions Giovanni Cerrato MD - 09/23/2022 10:35 AM EST Get labs done at [facility]. Will call with results. See me again in 6 months. documented in this encounter [facility] 09-23-2022 History of Presen t illness Narrative Follow-up 62 year-old female, patient of Dr. Eldon Gill, with insulin-requiring type 2 diabetes mellitus since 1998. Takes metformin 1000 mg bid, Jardiance, and U500 insulin pens at meals. She has a glucose meter, checks her glucose levels 1-3x daily. She is seeing more glucose levels less than 200 mg/dL, rare mild hypoglycemia detected by her glucose sensor. Notes she has good insulin dosing adherence, is injecting insulin 3x daily. Is checking her fingerstick glucose 3x daily, using results to guide her insulin treatment. Non-smoker, denies alcohol use. NKDA. Review of her diet shows less overindulgence in carbohydrates. Medication list, insulin doses reviewed with the patient, reconciled. Maximal lifetime weight was 260 pounds. Refuses flu shots. Had diabetic eye exam in 04/2022. COVID vaccine hasn't been done yet. Has a continuous glucose monitoring system. Had right distal toe amputation in 07/2022. Weight has been decreasing. Current Outpatient Medications on File Prior to Visit Medication Sig ibuprofen (ADVIL ORAL) Take 3 tablets by mouth. metFORMIN (GLUCOPHAGE) 1,000 mg tablet Take 1 tablet by mouth twice daily with meals. E11.3599 atorvastatin (LIPITOR) 40 mg tablet Take 1 tablet by mouth once daily. empagliflozin (JARDIANCE) 25 mg tablet Take 1 tablet by mouth daily with breakfast. spironolactone (ALDACTONE) 25 mg tablet Take 12.5 mg by mouth once daily. Take half tablet by mouth daily furosemide (LASIX ORAL) Take 40 mg by mouth once daily. FLUoxetine (PROZAC) 40 mg capsule Take by mouth q 24 HR. insulin regular human, CONCENTRATED 500 UNIT/ML, (HUMULIN R) 500 unit/mL (3 mL) inpn 90 units sc at breakfast, 40 units at lunch, 90 units at supper. blood sugar diagnostic (ACCU-CHEK JOSE PLUS TEST STRP) test strip USE TO TEST BLOOD GLUCOSE 3 TIMES DAILY. lancets (ONE TOUCH DELBruin Biometrics) 33 gauge USE TO BLOOD GLUCOSE 3 TIMES DAILY. INSULIN DEPENDENT E11.3299, E11.65, Z79.4 insulin needles, DISPOSABLE, (BD INSULIN PEN NEEDLE UF) 31 gauge x /16 FOUR DAILY FOR INSULIN INJECTIONS. enalapril (VASOTEC) 10 mg tablet Take 1 tablet by mouth once daily. Blood-Glucose Meter misc Use to test blood glucose 3 times daily. Insulin Dependent E11.3299, E11.65, Z79.4 Cholecalciferol, Vitamin D3, 50 mcg (2,000 unit) cap Take 1 tablet by mouth once daily. 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 Vitamin D deficiency 01/05/2017 PAST SURGICAL HISTORY PAST SURGICAL HISTORY Procedure Laterality Date D&C, DIAG AND/OR THERAPEUTIC x3 EXTENSIVE HAND SURGERY Dupuytren contracture TONSILLECTOMY HX Review of systems: Patient notes no weight loss, fever, weakness, change in balance or sensation, visual problems, hearing changes, dizziness, trouble swallowing, nasal difficulties, chest pain, foot or leg problems, skin lesions, abdominal pain, diarrhea, constipation, urinary problems, incontinence, back pain, joint pains, anxiety, depression, menstrual difficulties, breast lesions/pain/mass. Remainder of review of systems was unremarkable. . BP 138/67 Pulse 72 Resp 16 Ht 172.7 cm (5' 8) Wt 101.3 kg (223 lb 6.4 oz) SpO2 99% BMI 33.97 kg/m Healthy-appearing obese (BMI > 30) female in no distress. Weight down 12 pounds since 03/2022. Blood pressure near normal, pulse regular. Thinning hair over the vertex. No thyromegaly. Breathing unlabored. Heart regular rate and rhythm. Feet:Shoes and socks removed, trace DP distal pulses, and decreased sensation. Healed right hallux amputation wound. Some calluses. Latest Reference Range & Units 08/21/22 13:43 Sodium 136 - 144 mmol/L 139 Potassium 3.7 - 5.1 mmol/L 4.6 Chloride 97 - 105 mmol/L 102 CO2 22 - 30 mmol/L 28 BUN 7 - 21 mg/dL 15 Creatinine 0.58 - 0.96 mg/dL 0.71 Glucose 74 - 99 mg/dL 175 (H) Protein, Total 6.3 - 8.0 g/dL 7.6 Calcium 8.5 - 10.2 mg/dL 9.5 Albumin 3.9 - 4.9 g/dL 3.8 (L) Bilirubin, Total 0.2 - 1.3 mg/dL 0.4 Alkaline Phosphatase 34 - 123 U/L 131 (H) ALT 7 - 38 U/L 12 AST 13 - 35 U/L 22 Anion Gap 9 - 18 mmol/L 9 eGFR >=60 mL/min/1.73m 96 Vitamin B12 232 - 1,245 pg/mL <150 (L) Ferritin 14.7 - 205.1 ng/mL 100.3 Iron 41 - 186 ug/dL 54 TIBC 232 - 386 ug/dL 284 Transferrin Saturation 15.0 - 57.0 % 19.0 Transferrin 200 - 360 mg/dL 257 TSH 0.270 - 4.200 mIU/L 1.790 Latest Reference Range & Units 07/15/22 17:14 Hemoglobin A1C 4.3 - 5.6 % 7.1 (H) (H): Data is abnormally high urine microalbumin/creatinine ratio in 09/2021 showed urine microalbumin/creatinine ratio 417 mg/gm. IMPRESSION: Type 2 diabetes mellitus, insulin-requiring - A1C much improved. Urged continued good insulin dosing adherence. She is to alert me if more hypoglycemia occurring, can cut insulin doses if needed. Hypertension - good BP control Hyperlipidemia - continue atorvastatin Obesity - urged lowered carbohydrate diet approach B12 deficiency - start B12 supplement, check anti-parietal cell AB PLAN: Continue metformin and Jardiance, current U500 insulin doses Check parietal cell antibody, urine microalbumin/creatinine ratio Will call with reuslts See us again in [address] Gill for regular health care needs Giovanni Cerrato MD, FACP I spent a total of 30 minutes on the date of service which included preparing to see the patient, [id number] patient care, completing clinical documentation, performing a medically appropriate examination, counseling and educating the patient/family/caregiver and ordering medications, tests, or procedures. documented in this encounter [facility] 09-22-2022 Miscellaneous Notes Received office notes from [facility]. Placed on provider desk for review. documented in this encounter [facility] 09-16-2022 Miscellaneous Notes [address] [address] September 16, 2022 PID: [id number] Shade Brambila [address] [place] [id number] Dear Ms. Brambila, We are pleased to inform you that the results of your recent breast imaging exam on 09/15/2022 are normal. Early detection of cancer is very important. We also understand recommendations regarding breast cancer screening are controversial. Please discuss with your primary care provider which strategy is best for you and whether a mammogram is right for you. Your imaging studies and report will be kept on file at [facility] as part of your permanent medical record and are available for your continuing care. Thank you for allowing us to help in meeting your health care needs. Sincerely, Dr. Palomo Interpreting Radiologist [facility] (Normal over 40) documented in this encounter [facility] 09-15-2022 History of Presen t illness Narrative Radiology Service Progress Note PATIENT NAME: Shade Brambila DATE OF SERVICE: September 15, 2022 TIME: 1:59 PM PATIENT IDENTITY VERIFICATION COMPLETED USING TWO (2) IDENTIFIERS: Name and Date of confirmed by patient verbally. FALL SCREENING: Has the patient had 2 falls in the last year or 1 fall with injury or currently using an Ambulatory Assistive Device (Walker, Cane, Wheelchair, Crutches, etc.)? No PATIENT GENDER DATA: Female. status: : No status: NO. PATIENT RELEVANT IMPLANT DATA REVIEWED: Yes RADIOLOGY DEPARTMENT: Mammography PERIPHERAL IV DATA: Not applicable SIGNED BY: RT Alyse(R) September 15, 2022 1:59 PM documented in this encounter [facility] 08-24-2022 Miscellaneous Notes Hemoglobin has not normalized. Low B12, recommend [id number] supplementation with multivitamin. We will discuss elevated alk phos at follow-up appointment. Notified patient, discussed message below. Patient verbalizes understanding and has no other questions or concerns at this time. Yovani Bond RN Reason for Disposition Caller requesting routine or non-urgent lab result Protocols used: PCP Call - No [id number] documented in this encounter [facility] 08-21-2022 History of Presen t illness Narrative Images from the original note were not included. [facility] [place] [facility] OUTPATIENT VISIT DATE August 21, 2022 OUTPATIENT VISIT TYPE ESTABLISHED PRIMARY CARE PHYSICIAN: Eldon Gill DO CHIEF COMPLAINT: Patient presents with: Breathing Problem Leg Edema HISTORY OF PRESENT ILLNESS: Shade Brambila is a 62 year old female who presents today for a follow-up visit in the Heart Failure Clinic. The patient was last seen in office 05/21. The following changes were made at that time: decrease spironolactone to 12.5 mg once a day due to increased kidney function. Patient has had 0 hospitalizations and/or emergency room encounters in the last 12 months. Today, the patient reports feeling well. Denies shortness of breath, fever, chills, dizziness or lightheadedness. Reports a rate, intermittent chest discomfort in the middle of her chest. She cannot pinpoint when this happens but states these episodes are not new and very rare. She underwent amputation right great toe on 07/[address] Bolanos due to an infection. Reports pain to area however, she has been wearing regular shoes so she can drive. She was supposed to be wearing a walking shoe. She reports notifying podiatry and they are aware. She has a follow up appt next week. She reports feeling like she has lost muscle tone to right leg. Had a friend drive her to appt today because feels like she cannot hit the break pedal well. She has been working from home. Admits to not monitoring her sodium or fluid intake. Reports feeling more thirsty lately as she has been eating saltier foods. IMPRESSION: NYHA Functional Class: II Stage: C heart failure Shade Brambila is a 61 year-old female who presents to the Heart Failure Clinic to establish care. She appears euvolemic on examination. No changes to medications at this time. She may take additional 20 mg lasix for weight gain 3-4 lbs in 1-2 days. Encouraged increased exercise along with limiting fluid and sodium intake especially over the holiday. Reviewed plan of care with patient. All questions answered at this time. PLAN AND RECOMMENDATIONS: 1. Chronic heart failure with preserved ejection fraction (HCC) - ICD9: 428.9, ICD10: I50.32 (primary diagnosis) - daily weights, call office if weight increases 3-4 lbs in a 1-4 day period -2 gm low sodium diet -activity as tolerated, rest breaks as needed -spironolactone to 12.5 mg once a day -continue lasix 40 mg once a day -25 mg jardiance once a day -follow up in HF Clinic 11/03 or sooner if needed 2. Primary hypertension - ICD9: 401.9, ICD10: I10 -BP suboptimal during visit 140/72 mmHg -encourage DASH/low sodium diet -encourage exercise with rest breaks as needed -goal BP <130/80 mmHg -continue home BP monitoring 3. Mixed hyperlipidemia - ICD9: 272.2, ICD10: E78.2 -continue atorvastatin -last lipid panel 09/19/2021; LDL 102, HDL 65, total 184 Follow up appointment with Dr. 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 Vitamin D deficiency 01/05/2017 PAST SURGICAL HISTORY Procedure Laterality Date DILATION & CURETTAGE DX&/THER NONOBSTETRIC x3 EXTENSIVE HAND SURGERY Dupuytren contracture TONSILLECTOMY HX Social History Tobacco Use Smoking status: Never Smokeless tobacco: Never Vaping Use Vaping Use: Never used Substance Use Topics Alcohol use: No Drug use: No Family History Problem Relation Age of Onset Heart Father CHF Hypertension Father Hypertension Mother other (polycystic kidney disease) Mother Cancer Paternal Aunt breast CA Diabetes Brother other (CHF) Paternal Grandmother Coronary Artery Disease Brother MD and at age 45 ALLERGIES No Known Allergies CURRENT MEDICATIONS: Current Outpatient Medications Medication Sig Dispense Refill Miscellaneous Medical Supply (BLOOD PRESSURE CUFF) 1 Each as directed for 1 day. 1 Each 0 ibuprofen (ADVIL ORAL) Take 3 tablets by mouth. metFORMIN (GLUCOPHAGE) 1,000 mg tablet Take 1 tablet by mouth twice daily with meals. E11.3599 180 tablet 1 atorvastatin (LIPITOR) 40 mg tablet Take 1 tablet by mouth once daily. empagliflozin (JARDIANCE) 25 mg tablet Take 1 tablet by mouth daily with breakfast. 90 tablet 3 spironolactone (ALDACTONE) 25 mg tablet Take 12.5 mg by mouth once daily. Take half tablet by mouth daily furosemide (LASIX ORAL) Take 40 mg by mouth once daily. FLUoxetine (PROZAC) 40 mg capsule Take by mouth q 24 HR. insulin regular human, CONCENTRATED 500 UNIT/ML, (HUMULIN R) 500 unit/mL (3 mL) inpn 90 units sc at breakfast, 40 units at lunch, 90 units at supper. 42 mL 3 blood sugar diagnostic (ACCU-CHEK JOSE PLUS TEST STRP) test strip USE TO TEST BLOOD GLUCOSE 3 TIMES DAILY. 300 Strip 1 lancets (ONE TOUCH DELICA) 33 gauge USE TO BLOOD GLUCOSE 3 TIMES DAILY. INSULIN DEPENDENT E11.3299, E11.65, Z79.4 300 Each 3 insulin needles, DISPOSABLE, (BD INSULIN PEN NEEDLE UF) 31 gauge x 5/16 FOUR DAILY FOR INSULIN INJECTIONS. 400 Each 1 enalapril (VASOTEC) 10 mg tablet Take 1 tablet by mouth once daily. 90 tablet 3 Blood-Glucose Meter misc Use to test blood glucose 3 times daily. Insulin Dependent E11.3299, E11.65, Z79.4 1 Each 0 Cholecalciferol, Vitamin D3, 50 mcg (2,000 unit) cap Take 1 tablet by mouth once daily. No current facility-administered medications for this visit. REVIEW OF SYSTEMS: GENERAL: Negative for: Weight loss or gain, Fever or Chills, Weakness and Sleep difficulties. HEENT: Positive for:Glasses NECK: Negative for: Swelling, Pain, Stiffness RESPIRATORY: Negative for: Cough, Blood in Sputum, Shortness of breath, Wheezing, Apnea GASTROINTESTINAL: Negative for: Trouble swallowing, Heartburn, Change in bowel habits, Blood in stool, Dark black stools MUSCULOSKELETAL: Positive for: Muscle or joint pain NEUROLOGIC/PSYCHIATRIC: Negative for: Weakness, Paralysis, Numbness, Tingling, Tremor, Nervousness or anxiety, Depressed mood, Memory loss SKIN: Negative for: Rash, Itching HEMATOLOGICAL/LYMPHATIC: Positive for: Easy bruising; easy bleeding ENDOCRINE: Negative for: Heat or Cold Intolerance, Excessive Sweating, Frequent Urination, Frequent Thirst PHYSICAL EXAMINATION: BP 140/72 Pulse 76 Wt 102.1 kg (225 lb) SpO2 98% BMI 34.21 kg/m General: Normal exam, no distress, uses cane Skin: No clubbing, no cyanosis. Eyes: Extra ocular movements intact Neck: Neck veins are not distended Lungs: Chest clear to auscultation Heart: Rhythm: regular rate and rhythm, Rate: normal, no murmur Abdomen: Normal Extremities: Normal exam of the extremities Peripheral Pulses: Normal CARDIOVASCULAR MEDICINE TESTING: LABS 07/15 and 08/15/2022: 07/15/22 17:14 08/15/22 09:25 Sodium 142 Potassium 4.3 Chloride 104 CO2 28 BUN 21 Creatinine 0.79 Glucose 78 Calcium 9.3 Anion Gap 10 eGFR 85 Cholesterol, Total 194 Triglyceride 110 Fasting Time 12 HDL Cholesterol 55 LDL Cholesterol 117 (H) VLDL Cholesterol 22 TC:HDL Ratio 3.53 LDL:HDL Ratio 2.13 Non HDL Cholesterol 139 (H) (H): Data is abnormally high Stress Test 05/12/2022: CONCLUSIONS: 1. SPECT Perfusion Study: Normal. 2. There is no scintigraphic evidence for inducible ischemia. 3. No evidence of scarred myocardium. 4. Left ventricle is normal in size. The left ventricle systolic function is normal. 5. This is a low risk scan. Gated Stress IR:3D LVEF % 67 I have personally reviewed the Laboratory Testing and Stress Echocardiogram. COUNSELING: We discussed the following non-pharmacological measures during this visit: Smoking and alcohol abstinence/cessation, if applicable Dietary and medication compliance Monitoring daily weights and blood pressures Exercise regimen When to call our office Heart Failure Education Booklet: Previously given. Discussed red flags and when to call MD/RN BABY or go to ED. Medications reconciled at end of visit: yes I spent 25 minutes in this visit, with more than 50% of the time devoted to patient counseling. SIGNATURE: Ayan Wallis APRN.CNP PATIENT NAME: Shade Brambila DATE: August 21, 2022 TIME: 8:25 AM documented in this encounter [facility] 08-21-2022 Instructions Ayan Wallis APRN.CNP - 08/21/2022 12:55 PM EST Continue current medications as prescribed. You may take additional 20 mg lasix (1/2 tablet) for weight gain 3-4 lbs in 1-2 days or with increased shortness of breath. If you have to take additional lasix, please take this at least 6-8 hours after your morning. 2. Weigh yourself daily. Call me if your weight increases by 3-4 pounds in a 1-4 day period of time. 3. Continue low salt (2000 mg per day) diet. 4. Be as active as you are able. If you get tired, just stop and rest for a while. 5. Come back and see me on WednesdayNovember 03 at 1:00. If you have any question or concern, you can call me at [phone]. documented in this encounter [facility] 08-20-2022 Miscellaneous Notes Covered at apt Patient said she established care with Dr. Gill on 07/15/22. She was told to schedule a physical with him and has an appt on 08/20/22. Wants to know specifically what will be done differently at the physical appt vs the establish care appt. Also said when she went to the lab this las weekend, she asked about getting the urine lab done. The tech told her it was no longer available to schedule. Wants to know why and if she needs to get it done. Please advise at [phone] documented in this encounter [facility] 08-20-2022 History of Presen t illness Narrative 62 year old female presenting for well exam. I have fully reviewed the past medical, surgical, social and family history and updated the Histories section of [facility]. Recent labs obtained, mild normocytic anemia. Patient not on iron, has never had colonoscopy. No changes in bowel habits. HM: Due for PAP follows with OBGYN Declines vaccines today. Patient did not take blood pressure medications today. Specialist: Patient is following with Ortho, cardio, Endo. Current Outpatient Medications on File Prior to Visit: Current Outpatient Medications Medication Sig Dispense Refill ibuprofen (ADVIL ORAL) Take 3 tablets by mouth. metFORMIN (GLUCOPHAGE) 1,000 mg tablet Take 1 tablet by mouth twice daily with meals. E11.3599 180 tablet 1 atorvastatin (LIPITOR) 40 mg tablet Take 1 tablet by mouth once daily. empagliflozin (JARDIANCE) 25 mg tablet Take 1 tablet by mouth daily with breakfast. 90 tablet 3 spironolactone (ALDACTONE) 25 mg tablet Take 12.5 mg by mouth once daily. Take half tablet by mouth daily furosemide (LASIX ORAL) Take 40 mg by mouth once daily. FLUoxetine (PROZAC) 40 mg capsule Take by mouth q 24 HR. insulin regular human, CONCENTRATED 500 UNIT/ML, (HUMULIN R) 500 unit/mL (3 mL) inpn 90 units sc at breakfast, 40 units at lunch, 90 units at supper. 42 mL 3 blood sugar diagnostic (ACCU-CHEK JOSE PLUS TEST STRP) test strip USE TO TEST BLOOD GLUCOSE 3 TIMES DAILY. 300 Strip 1 lancets (ONE TOUCH DELBruin Biometrics) 33 gauge USE TO BLOOD GLUCOSE 3 TIMES DAILY. INSULIN DEPENDENT E11.3299, E11.65, Z79.4 300 Each 3 insulin needles, DISPOSABLE, (BD INSULIN PEN NEEDLE UF) 31 gauge x 5/16 FOUR DAILY FOR INSULIN INJECTIONS. 400 Each 1 enalapril (VASOTEC) 10 mg tablet Take 1 tablet by mouth once daily. 90 tablet 3 Blood-Glucose Meter misc Use to test blood glucose 3 times daily. Insulin Dependent E11.3299, E11.65, Z79.4 1 Each 0 Cholecalciferol, Vitamin D3, 50 mcg (2,000 unit) cap Take 1 tablet by mouth once daily. No current facility-administered medications for this visit. ALLERGIES No Known Allergies PAST SURGICAL HISTORY Procedure Laterality Date DILATION & CURETTAGE DX&/THER NONOBSTETRIC x3 EXTENSIVE HAND SURGERY Dupuytren contracture TONSILLECTOMY HX Social history reviewed in [facility]. REVIEW OF SYSTEMS: Constitutional: Denies fever, denies chills, denies fatigue Head: Denies headache Eyes: Denies changes in vision or blurry vision Ears/Nose/Throat: Denies sore throat, denies rhinorrhea Musculoskeletal: Denies joint pain, denies myalgias Abd: No abd pain, no vomiting, no diarrhea, no nausea Skin/Breast: Denies rash or lesions Cardiovascular: Denies chest pain, denies palpitations, denies LE edema Respiratory: Denies cough, denies SOB, denies wheezing Neurological: Denies numbness, denies tingling, denies weakness PHYSICAL EXAMINATION: General appearance: Well appearing, alert, in no acute distress, well-hydrated, well nourished. Skin: no suspicious rashes or lesions Head: Normocephalic, atraumatic Eyes: Anicteric sclera. Pupils are equally round and reactive to light. Extraocular movements are intact. Ears: External ears normal, canals clear Nose/Sinuses: Nares normal, septum midline, mucosa normal, Oropharynx: Lips, mucosa, and tongue normal, good dentition, no pharyngeal erythema or exudates Neck: Supple, no adenopathy Lungs: Lungs clear to auscultation. No wheezing, rhonchi, rales. Heart: RRR without murmur, gallop, or rubs. Abdomen: Normal abdominal exam, Abdomen soft, non-tender. No masses Extremities: No deformities, no edema, no cyanosis. Musculoskeletal: No joint swelling, no deformity Neuro: Gait normal. Speech intact ASSESSMENT/PLAN: 1. Screening for colon cancer - ICD9: V76.51, ICD10: Z12.11 (primary diagnosis) - COLONOSCOPY SCREENING 2. Other specified nutritional anemias - ICD9: 281.8, ICD10: D53.8 - FOLIC ACID RBC - VITAMIN B12 BLOOD - PATHOLOGIST INTERPRETATION WITH CBC AND DIFF - RETIC COUNT - IRON + TIBC - FERRITIN BLD - TSH BLD - COMP METABOLIC PANEL - TRANSFERRIN BLD 3. Hypertension, essential - ICD9: 401.9, ICD10: I10 - suboptimal control - Recommended regular aerobic exercise. - Recommend home blood pressure monitoring, to bring results in on next visit - Goal of BP <130/80 - BLOOD PRESSURE CUFF - ALBUMIN RANDOM URINE Follow up in 3 months Checking BP at home Eldon Gill DO Recommend covid vaccine, recommend improved diet and exercise. Recommend dentist and annual eye exam. Discussed with patient red flag symptoms. Discussed risks and benefits of treatment plan. Pt understands to seek appropriate evaluation for new or worsening symptoms. Patient understands and agrees with plan, all concerns and questions addressed. documented in this encounter [facility] 08-18-2022 Miscellaneous Notes Images from the original note were not included. Spoke to patient who is aware of results. DO Sena Small [facility] Triage Nurse Pool LDL mildy increased continue diet and exercise, continue compliance with lipitor. Will continue to monitor. Thank you Reason for Disposition [1] Follow-up call to recent contact AND [2] information only call, no triage required Protocols used: Information Only Call - No [id number] documented in this encounter [facility] 08-17-2022 Miscellaneous Notes [facility]: [employer] will be contacting the patient with pricing options. The insurance plan does not cover the supplies ordered under their benefits (Supplies deemed OTC/non-covered) documented in this encounter [facility] 07-18-2022 Miscellaneous Notes Reason for Disposition General information question, no triage required and triager able to answer question Answer Assessment - Initial Assessment Questions 1. REASON FOR CALL or QUESTION: What is your reason for calling today? or How can I best help you? or What question do you have that I can help answer? DO Sena Small [facility] Triage Nurse Pool A1c nearly at goal, 7.1, continue to follow with endocrinology. Renal function normal, hemoglobin mildly decreased, we will continue to monitor, and likely repeat in future if future appointment. Protocols used: Information Only Call - No [id number] Pt notified of message above, verbalized understanding. Denies any current concerns or questions. Images from the original note were not included. DO Sena Small [facility] Triage Nurse Pool A1c nearly at goal, 7.1, continue to follow with endocrinology. Renal function normal, hemoglobin mildly decreased, we will continue to monitor, and likely repeat in future if future appointment. documented in this encounter [facility] 07-13-2022 Miscellaneous Notes Pt will have to request letter from surgeon. 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 I stated that if it regarding the surgery them she would need to contact the surgeon that preformed the surgery. She stated that she wanted to see if Dr Sadler would write her one due to her heart failure. documented in this encounter [facility] 07-06-2022 Miscellaneous Notes Spoke to patient. She will speak to Dr Bolanos to see if he wants ahead of surgery. She will also apeak to new PCP at her visit on 07/15/22. Closed. Patient is inquiring if she should have an A1C completed prior to her toe amputation on 07/[address] Prince's. Please advise an call [phone]. Thank you documented in this encounter [facility] 06-29-2022 Miscellaneous Notes Called PT Patient with moderate sleep apnea. I will place a sleep medicine consult. Please inform the patient. Thank you so much. Olegario Sadler, DO PT states he understands documented in this encounter [facility] 06-24-2022 Miscellaneous Notes Form faxed to [employer] for [employer] 2 [employer] and [employer], transmission ok Closed OK to send. Form on docs desk/basket for review from [employer]. Please review and sign. Needs to be faxed to [phone]. documented in this encounter [facility] 06-03-2022 History of Presen t illness Narrative Images from the original note were not included. [facility] [place] [facility] Department of Cardiovascular Medicine SECTION OF CLINICAL CARDIOLOGY OUTPATIENT VISIT DATE June 03, 2022 OUTPATIENT VISIT TYPE ESTABLISHED PRIMARY CARE PHYSICIAN: Alvina Sullivan MD ([facility]) [address] [facility] [address] [address] CHIEF COMPLAINT: 6 week follow up HISTORY OF PRESENT ILLNESS: Ms. Brambila is a 61 year old female with chronic HFpEF, HTN, HLD, peripheral vascular disease, and diabetes mellitus type 2, who presents today for a cardiovascular medicine follow-up visit. She was last seen in the office by Dr. Sadler on 04/22 to establish care. At that time she was feeling well with no significant cardiac complaints. BMP and NT proBNP were recommended and completed showing a mildly elevated creatinine at 0.97 and an NT proBNP of 151. Referral to vascular surgery was placed due to her known history of PVD. PSG was ordered to assess for NELLY and has yet to be completed. Nuclear stress testing was ordered given her cardiovascular risk profile which was completed and demonstrated no inducible ischemia or scar. Plan was to continue on her current regimen and follow-up in 4-6 weeks. Since her last office visit she has been doing well with no new or worsening symptoms. She had a PSG completed last Wednesday which showed moderate NELLY however with poor sleep and likely underestimated. She was seen by vascular surgery who recommended no changes and as needed follow-up. She was seen by the CHF clinic who decreased her Aldactone to 12.5 mg daily. She has not been monitoring her heart rate or blood pressure at home but did order a blood pressure cuff that should be coming in the next week or so. She gets occasional lightheadedness with positional changes. She does have shortness of breath with moderate exertion such as walking up 3 flights of stairs. She denies any chest pain, palpitations, lower extremity edema, PND, orthopnea, presyncope, syncope, or claudication symptoms Subjective PAST MEDICAL HISTORY Diagnosis Date Charcot left foot due to diabetes mellitus (HCC) 05/2013 subsequent to left foot fracture Depression Diabetes (HCC) 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 Vitamin D deficiency 01/05/2017 PAST SURGICAL HISTORY Procedure Laterality Date DILATION & CURETTAGE DX&/THER NONOBSTETRIC x3 EXTENSIVE HAND SURGERY Dupuytren contracture TONSILLECTOMY HX Social History Tobacco Use Smoking status: Never Smokeless tobacco: Never Vaping Use Vaping Use: Never used Substance Use Topics Alcohol use: No Drug use: No FAMILY HISTORY Problem Relation Age of Onset Heart Father CHF Hypertension Father Hypertension Mother other (polycystic kidney disease) Mother Cancer Paternal Aunt breast CA Diabetes Brother other (CHF) Paternal Grandmother Coronary Artery Disease Brother MD and at age 45 ALLERGIES: ALLERGIES No Known Allergies MEDICATIONS: metFORMIN (GLUCOPHAGE) 1,000 mg tablet Take 1 tablet by mouth twice daily with meals. E11.3599 atorvastatin (LIPITOR) 40 mg tablet Take 1 tablet by mouth once daily. empagliflozin (JARDIANCE) 25 mg tablet Take 1 tablet by mouth daily with breakfast. spironolactone (ALDACTONE) 25 mg tablet Take 12.5 mg by mouth once daily. Take half tablet by mouth daily furosemide (LASIX ORAL) Take 40 mg by mouth once daily. FLUoxetine (PROZAC) 40 mg capsule Take by mouth q 24 HR. insulin regular human, CONCENTRATED 500 UNIT/ML, (HUMULIN R) 500 unit/mL (3 mL) inpn 90 units sc at breakfast, 40 units at lunch, 90 units at supper. blood sugar diagnostic (ACCU-CHEK JOSE PLUS TEST STRP) test strip USE TO TEST BLOOD GLUCOSE 3 TIMES DAILY. lancets (ONE TOUCH DELICA) 33 gauge USE TO BLOOD GLUCOSE 3 TIMES DAILY. INSULIN DEPENDENT E11.3299, E11.65, Z79.4 insulin needles, DISPOSABLE, (BD INSULIN PEN NEEDLE UF) 31 gauge x 5/16 FOUR DAILY FOR INSULIN INJECTIONS. enalapril (VASOTEC) 10 mg tablet Take 1 tablet by mouth once daily. Blood-Glucose Meter misc Use to test blood glucose 3 times daily. Insulin Dependent E11.3299, E11.65, Z79.4 Cholecalciferol, Vitamin D3, 50 mcg (2,000 unit) cap Take 1 tablet by mouth once daily. REVIEW OF SYSTEMS: CARD: See HPI GENERAL: Negative for: Weight loss or gain, Fever and/or Chills HEENT: Negative for: Headache, Impaired Vision, Glasses, Hearing Impairment, Ringing in Ears, Nosebleeds, Bleeding Gums NECK: Negative for: Swelling, Pain, Stiffness RESPIRATORY: Negative for: Cough, Blood in Sputum, Shortness of breath, Wheezing, Apnea GASTROINTESTINAL: Negative for: Nausea, Vomiting, Diarrhea, Blood in stool, or Dark black stools MUSCULOSKELETAL: +Arthralgias NEUROLOGIC: Negative for: focal numbness/weakness, headaches, visual changes, ataxia, speech/language loss SKIN: Negative for: Rashes, Itching HEMATOLOGICAL/LYMPHATIC: Negative for: Easy bruising , Easy bleeding ENDOCRINE: Negative for: Heat or cold intolerance, Excessive sweating, Frequent urination, Frequent thirst Objective PHYSICAL EXAMINATION: BP 130/70 (BP Site: Left Arm, BP Position: Sitting, BP Cuff Size: Regular Adult) Pulse 86 Ht 172.7 cm (5' 8) Wt 97.5 kg (215 lb) SpO2 100% BMI 32.69 kg/m General: Well appearing, in no acute distress. Ambulates with cane Skin: No clubbing, no cyanosis. Eyes: Extra ocular movements intact. Glasses Oropharynx: Teeth in good repair. Neck: No jugular venous distention, no carotid bruits, carotids have a normal upstroke. Lungs: Clear to auscultation bilaterally, no wheezing or rhonchi. Heart: Regular rhythm, S1, S2 normal, no S3, no S4, no heaves, no rub and no murmur. No peripheral edema . Grade 2/4 distal pulses bilaterally. Abdomen: Soft, nontender, bowel sounds normal, no bruits. Neuro: Oriented to person, place and time, alert, cooperative, gait coordinated. CARDIOVASCULAR MEDICINE TESTING: No Cardiovascular testing perfomed today. Last EKG Result Conclusion ECG COMPLETE Collected: 04/22/2022 12:26 PM (Final result) Impression: NORMAL SINUS RHYTHM LEFT AXIS DEVIATION CANNOT EXCLUDE SEPTAL MYOCARDIAL INFARCTION , AGE UNDETERMINED ABNORMAL ECG Confirmed by MD SADLER GREGORY () on 05/04/2022 9:39:03 AM OSH echocardiogram 02/19/2022 LVEF 55 to 60%, no WMA, mild concentric LVH Moderately dilated LA Normal RV size and function with RVSP 33 Mildly dilated RA Trace MR Trace to mild TR No pericardial effusion Normal aortic root I have personally reviewed the Echocardiogram and Stress Test: Nuclear (Non-PET). PLAN AND RECOMMENDATIONS: 1. HFpEF - NYHA Functional Class II stage C Heart Failure - Echocardiogram 02/2022: EF 55 to 60% with mild concentric LVH and normal LVDD - NT proBNP 151 - GDMT: Aldactone 12.5 mg daily, Jardiance 25 mg daily, and Lasix 40 mg daily - Patient appears euvolemic on exam. - Encouraged to monitor sodium and fluid intake as well as daily weights 2. Essential hypertension - Optimal control on Aldactone and lasix - Encouraged dietary sodium restriction/DASH diet - Reviewed risks of HTN and principles of treatment - Goal of BP <130/80 3. Mixed hyperlipidemia - Currently on atorvastatin 40 mg - Last lipid panel 09/2021 with LDL 102 - Normal LFTs 09/2021 4. Peripheral vascular disease - Noted venous insufficiency on ultrasound 12/22/2021 - Normal MANJEET on PVRs 12/22/21 - Follows with vascular surgery, Dr. Moore 5. NELLY (obstructive sleep apnea) - PSG 05/29 with moderate NELLY likely underestimated due to low sleep efficiency and absence of REM - Sleep medicine CONCLUSION: Patient presents today for follow-up and appears to be doing well from a cardiovascular standpoint. Her heart rate, blood pressure, and most recent cholesterol profile remains under favorable control. Her PSG demonstrated moderate NELLY likely underestimated due to low sleep efficiency and absence of REM for which we will refer her to sleep medicine for further management. I have made no additions or changes to her medications. She should continue to actively engage in cardiovascular risk factor modification and follow up with Dr. Sadler, or sooner should need arise. CONTACT INFORMATION: Shanel Newell APRN.[facility] Cardiology Nurse Practitioner Section of Regional Cardiology [facility] Dept of Cardiovascular Medicine [facility] [place] [address] [place], [place] [id number] Office Office This note was partially generated using [employer] recognition system and may contain errors related to that system including grammar, punctuation, spelling, and words that may be inappropriate documented in this encounter [facility] 06-03-2022 Instructions Shanel Newell APRN.CNP - 06/03/2022 2:47 PM EDT It was great to see you today, you are looking awesome! No changes to make. Lets have you follow up with Dr. Sadler in 6 months, or sooner if need arises. documented in this encounter [facility] 05-30-2022 History of Presen t illness Narrative Sleep Study Check-In Documentation Date: May 30, 2022 Name: Shade Brambila Patient was accompanied by Self. Location: [place] Latex allergy: No Tape allergy: No Current medications were reviewed with the patient:Yes Sleep aid taken by patient for the sleep study: [place] of sleep aid: Not Applicable Procedure was explained to the patient and all questions were answered. PAP treatment discussed and shown to patient: Yes Knowledge Program (KP): KP was not completed in [facility] by patient and accepted Study type: Polysomnogram Adverse Event: No (If yes create a new abstract) SERS Event: No Comments: Patient was advised to follow up with their ordering provider regarding test results Alfredo Villatoro May 04, 2022 Standing PSG Orders signed in the last 90 days None Future PSG Orders signed in the last 90 days Ordered Auth. provider POLYSOMNOGRAM (PSG) [[id number]] 04/22/22 Olegario Sadler DO Assoc. 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, with long-term current use of insulin (HCC) [E11.3593, Z79.4], Venous stasis ulcers of both lower extremities (HCC) [I83.019, I83.029, L97.919, L97.929], Abnormal ankle brachial index (MANJEET) [R68.89], Abnormal electrocardiogram [R94.31] Q: Indications - Select All That Apply: A: Obstructive sleep apnea Q: STOP-BANG conditions - Select All That Apply: A: AGE > 50 A2: high blood PRESSURE Q: Comorbidities: A: Moderate/Severe Cardiac disease Q: Specify Cardiac Disease: A: CHF (NYHA class III or IV) Q: Is the patient non-ambulatory or will they be accompanied by a caregiver?: A: No Q: Current use of supplemental oxygen during sleep period?: A: No Q: Add supplemental oxygen if needed per sleep lab policy?: A: Yes Q: Is this a repeat Sleep Study?: A: No All Prior Sleep Studies (past 365 days) Some values may be hidden. Unless noted otherwise, only the newest values recorded on each date are displayed. Sleep Studies POLYSOMNOGRAM (PSG) Future Expected: Expires: 04/22/23 BMI Readings from Last 2 Encounters: 04/22/22 : 34.86 kg/m 03/23/22 : 35.73 kg/m PAST MEDICAL HISTORY Diagnosis Date Charcot left foot due to diabetes mellitus (HCC) 05/2013 subsequent to left foot fracture Depression Diabetes (HCC) 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 Vitamin D deficiency 01/05/2017 The medical record was reviewed to determine if the proposed sleep study conforms to the [facility] Practice Parameters for the Indications for Polysomnography and Related Procedures, or if the sleep study is indicated for other reasons. Indications for study: NELLY suspected with comorbid medical or sleep disorders: Heart failure or other [id number] cardiac disease Sleep study to be performed: Split Study-Polysomnogram with PAP titration Special instructions: Split night study if AHI > 15. Start with 5 cmH2O then titrate per protocol Target REM/supine sleep Add EtCO2 or Transcutaneous CO2 if available Maryann Preston - Sleep Medicine Staff Note: I have read the above protocol, edited as needed, and agree to the plan. Jeremie Rowland III, PhD 1:53 PM, 05/04/2022 April 30, 2022 An order has been received for Polysomnogram (PSG) from ward [facility]. [facility] Staff. Visit prep complete. Comments :No The sleep study is scheduled for 05/29. Insurance: Payor: [place] / Plan: [facility] CHOICE PLUS / Product Type: HMO / Payer/Plan Subscr Sex Relation Sub. Ins. ID Effective Group Num 1. [facility] SHADE BRAMBILA* 1960 Female Self [id number] [birth year] [id number] [id number] Dinora Tracey documented in this encounter [facility] 05-21-2022 Instructions Ayan Wallis APRN.DEBORAH - 05/21/2022 12:12 PM EDT DECREASE spironolactone to 12.5 mg (1/2 tablet) once a day. You may take additional 12.5 mg spironolactone for weight gain 3-4 lbs in 1-2 days. Continue current medications as prescribed. 2. Weigh yourself daily. Call me if your weight increases by 3-4 pounds in a 1-4 day period of time. 3. Continue low salt (2000 mg per day) diet. 4. Be as active as you are able. If you get tired, just stop and rest for a while. 5. Come back and see me on WednesdayAugust 21 at 1:00. If you have any question or concern, you can call me at [phone]. documented in this encounter [facility] 05-21-2022 History of Presen t illness Narrative Images from the original note were not included. [facility] [place] [facility] Heart Failure Clinic OUTPATIENT VISIT DATE May 21, 2022 OUTPATIENT VISIT TYPE NEW PRIMARY CARE PHYSICIAN: Alvina Sullivan MD REFERRING PHYSICIAN: No referring provider defined for this encounter. CHIEF COMPLAINT: Patient presents with: Leg Edema Breathing Problem HISTORY OF PRESENT ILLNESS: Shade Brambila is a 61 year old female who presents today for an initial visit to the Heart Failure Clinic. The patient is established with Dr. Sadler and was last seen in office 04/22. Past medical history is significant for diabetes, diastolic heart failure, depression, charcot left foot. The patient has had 0 hospital admissions in the past 12 months. Today, the patient reports feeling well. She reports sleeping in a recliner at night as she was having trouble breathing at night. Furthermore, she had retinal injections and was not able to lay flat per instructions. She is scheduled for a sleep study next week. She does feel she has sleep apnea as she wakes up through the night. She follows with Dr. Bolanos for history of ulcerations to legs. She reports shortness of breath on exertion, minimally. Denies swelling, chest pain, fever, chills. Reports intermittent dizziness and lightheadedness when she wakes up in the morning. She had started to increase her fluid intake to help with this. She was seen by nutrition recently. States she has been watching her foods. Denies following a strict low sodium diet. She states she had been seen by a area field manager in [place] prior to coming to [place]. IMPRESSION: NYHA Functional Class: II Stage: C heart failure Shade Brambila is a 61 year-old female who presents to the Heart Failure Clinic to establish care. She appears euvolemic on examination. Decrease spironolactone to 12.5 mg once a day due to elevated BUN/Cr and weight loss. She may take additional 12.5 mg spironolactone for weight gain 3-4 lbs in 1-2 days. Discussed in detail low sodium diet and fluid restriction. She will call the office if she needs to take additional spironolactone. Reviewed plan of care with patient. All questions answered at this time. PLAN AND RECOMMENDATIONS: ASSESSMENT/PLAN: 1. Chronic heart failure with preserved ejection fraction (HCC) - ICD9: 428.9, ICD10: I50.32 (primary diagnosis) - daily weights, call office if weight increases 3-4 lbs in a 1-4 day period -2 gm low sodium diet -activity as tolerated, rest breaks as needed -decrease spironolactone to 12.5 mg once a day -continue lasix 40 mg once a day -follow up in HF Clinic 08/21 or sooner if needed 2. Primary hypertension - ICD9: 401.9, ICD10: I10 -BP suboptimal during visit 129/58 mmHg -encourage DASH/low sodium diet -encourage exercise with rest breaks as needed -goal BP <130/80 mmHg -continue home BP monitoring 3. Mixed hyperlipidemia - ICD9: 272.2, ICD10: E78.2 -continue atorvastatin -last lipid panel 09/19/2021; LDL 102, HDL 65, total 184 Follow up appointment with Shanel Newell on 06/03. PAST MEDICAL HISTORY Diagnosis Date Charcot left foot due to diabetes mellitus (HCC) 05/2013 subsequent to left foot fracture Depression Diabetes (HCC) 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 Vitamin D deficiency 01/05/2017 PAST SURGICAL HISTORY Procedure Laterality Date DILATION & CURETTAGE DX&/THER NONOBSTETRIC x3 EXTENSIVE HAND SURGERY Dupuytren contracture TONSILLECTOMY HX Social History Tobacco Use Smoking status: Never Smokeless tobacco: Never Vaping Use Vaping Use: Never used Substance Use Topics Alcohol use: No Drug use: No FAMILY HISTORY Problem Relation Age of Onset Heart Father CHF Hypertension Father Hypertension Mother other (polycystic kidney disease) Mother Cancer Paternal Aunt breast CA Diabetes Brother other (CHF) Paternal Grandmother Coronary Artery Disease Brother MD and at age 45 ALLERGIES No Known Allergies CURRENT MEDICATIONS: Current Outpatient Medications Medication Sig Dispense Refill metFORMIN (GLUCOPHAGE) 1,000 mg tablet Take 1 tablet by mouth twice daily with meals. E11.3599 180 tablet 1 atorvastatin (LIPITOR) 40 mg tablet Take 1 tablet by mouth once daily. empagliflozin (JARDIANCE) 25 mg tablet Take 1 tablet by mouth daily with breakfast. 90 tablet 3 spironolactone (ALDACTONE) 25 mg tablet Take 25 mg by mouth once daily. Take half tablet by mouth daily furosemide (LASIX ORAL) Take 40 mg by mouth once daily. FLUoxetine (PROZAC) 40 mg capsule Take by mouth q 24 HR. insulin regular human, CONCENTRATED 500 UNIT/ML, (HUMULIN R) 500 unit/mL (3 mL) inpn 90 units sc at breakfast, 40 units at lunch, 90 units at supper. 42 mL 3 blood sugar diagnostic (ACCU-CHEK JOSE PLUS TEST STRP) test strip USE TO TEST BLOOD GLUCOSE 3 TIMES DAILY. 300 Strip 1 lancets (ONE TOUCH DELBruin Biometrics) 33 gauge USE TO BLOOD GLUCOSE 3 TIMES DAILY. INSULIN DEPENDENT E11.3299, E11.65, Z79.4 300 Each 3 insulin needles, DISPOSABLE, (BD INSULIN PEN NEEDLE UF) 31 gauge x 5/16 FOUR DAILY FOR INSULIN INJECTIONS. 400 Each 1 enalapril (VASOTEC) 10 mg tablet Take 1 tablet by mouth once daily. 90 tablet 3 Blood-Glucose Meter misc Use to test blood glucose 3 times daily. Insulin Dependent E11.3299, E11.65, Z79.4 1 Each 0 Cholecalciferol, Vitamin D3, 50 mcg (2,000 unit) cap Take 1 tablet by mouth once daily. No current facility-administered medications for this visit. REVIEW OF SYSTEMS: GENERAL: Positive for:Weight loss HEENT: Negative for: Headache, Impaired Vision, Glasses, Hearing Impairment, Ringing in Ears, Nosebleeds, Poor Dental Care, Bleeding Gums and Dentures. NECK: Negative for: Swelling, Pain, Stiffness RESPIRATORY: Positive for: Shortness of breath GASTROINTESTINAL: Negative for: Trouble swallowing, Heartburn, Change in bowel habits, Blood in stool, Dark black stools MUSCULOSKELETAL: Negtive for: Muscle or joint pain, stiffness, Joint swelling NEUROLOGIC/PSYCHIATRIC: Negative for: Weakness, Paralysis, Numbness, Tingling, Tremor, Nervousness or anxiety, Depressed mood, Memory loss SKIN: Negative for: Rash, Itching HEMATOLOGICAL/LYMPHATIC: Negative for: Easy bruising, Easy bleeding ENDOCRINE: Negative for: Heat or Cold Intolerance, Excessive Sweating, Frequent Urination, Frequent Thirst PHYSICAL EXAMINATION: BP 129/58 Pulse 71 Wt 98.9 kg (218 lb) SpO2 99% BMI 33.15 kg/m General: Normal exam, no distress, overweight, uses cane Skin: No clubbing, no cyanosis. Eyes: Extra ocular movements intact Neck: Neck veins are not distended Lungs: Chest clear to auscultation Heart: Rhythm: regular rate and rhythm, Rate: normal, no murmur Abdomen: Normal, Bowel Sounds: Present Extremities: Normal exam of the extremities, legs wrapped Peripheral Pulses: Normal CARDIOVASCULAR MEDICINE TESTING: Stress Test 05/12/2022: CONCLUSIONS: 1. SPECT Perfusion Study: Normal. 2. There is no scintigraphic evidence for inducible ischemia. 3. No evidence of scarred myocardium. 4. Left ventricle is normal in size. The left ventricle systolic function is normal. 5. This is a low risk scan. Gated Stress IR:3D LVEF % 67 LABS 05/04/2022: Latest Reference Range & Units 05/04/22 14:35 Sodium 136 - 144 mmol/L 138 Potassium 3.7 - 5.1 mmol/L 4.4 Chloride 97 - 105 mmol/L 100 CO2 22 - 30 mmol/L 25 BUN 7 - 21 mg/dL 40 (H) Creatinine 0.58 - 0.96 mg/dL 0.97 (H) Glucose 74 - 99 mg/dL 109 (H) Calcium 8.5 - 10.2 mg/dL 9.7 Anion Gap 9 - 18 mmol/L 13 NT Pro BNP <125 pg/mL 151 (H) eGFR >=60 mL/min/1.73m 67 (H): Data is abnormally high I have personally reviewed the Laboratory Testing and Echocardiogram. COUNSELING: We discussed the following non-pharmacological measures during this visit: Smoking and alcohol abstinence/cessation, if applicable Dietary and medication compliance Monitoring daily weights and blood pressures Exercise regimen When to call our office Heart Failure Education Booklet: HF education reviewed today and materials given to . Reviewed HF Zones sheet and patient was given all patient contact information for HF Clinic. Discussed etiology of heart failure, importance of daily weights, fluid and fluid management, signs and symptoms of heart failure exacerbation, and activity guidelines. Reviewed 2g low sodium diet and the role sodium plays in the management of heart failure. Reviewed all current medications and the importance these medications play in management of heart failure. Discussed when to call clinic and when ED visit would be warranted. Patient states understanding of education. All questions were answered. Medications reconciled at end of visit: yes I spent 45 minutes in this visit, with more than 50% of the time devoted to patient counseling. SIGNATURE: Ayan Wallis APRN.CNP PATIENT NAME: Shade Brambila DATE: May 21, 2022 TIME: 7:37 AM documented in this encounter [facility] 05-19-2022 Miscellaneous Notes Request for outside medical records faxed to Dr. Alvina Sullivan's office, . Confirmation received. Copy of signed medical release scanned into patient's chart. Flaca Cortez documented in this encounter [facility] 05-14-[address] - 05/14/2022 12:54 PM EDT Look for Triple zero Scottish yogurts Choose whole grain, high fiber breads and grains, goal at least 20 grams fiber per day Aim for two fresh fruit daily, one fruit per eating evening Aim for two carb choices per meal/30 grams per meal Include protein and fiber for evening snack Increase exercise and activity, try for 4 min activity every hour; if able add cardio 4-5 x per week (walking, pool exercise, walking workouts with Purvi Allred on Youtube) documented in this encounter [facility] 05-14-2022 History of Presen t illness Narrative Nutrition Therapy Initial Assessment Nutrition Diagnosis: Altered nutrition-related lab values, related to, endocrine dysfunction, as evidenced by HgA1c 10.1 . RECOMMENDED MALNUTRITION DIAGNOSIS: NO MALNUTRITION IDENTIFIED NUTRITION CARE PLAN Nutrition Intervention 05/14/2022: comprehensive nutrition education Look for Triple zero Scottish yogurts Choose whole grain, high fiber breads and grains, goal at least 20 grams fiber per day Aim for two fresh fruit daily, one fruit per eating evening Aim for two carb choices per meal/30 grams per meal Include protein and fiber for evening snack Increase exercise and activity, try for 4 min activity every hour; if able add cardio 4-5 x per week (walking, pool exercise, walking workouts with Purvi Allred on Youtube) Nutrition Monitoring & Evaluation: labs in target range Need for Follow up: 4-6 weeks Patient presents for initial MNT as relates to diabetes, HgA1c 10.1, also HTN, HLD. Has had MNT in the past for diabetes ,comes for refresher. Intake noted for eatign three meals and two snacks, includes high carb intake from breads, pastas, potatoes. Eating canned fruit and nigh to keep blood sugars from dropping. Has a low blood sugar to 53. Limited exercise and activity, limited by knee pain, balance issues. 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 Resting Metabolic Rate: 1634 Malnutrition Screening Significant unintentional weight loss? No Eating less than 75% of usual intake for more than 2 weeks? No Potential Signs of Inflammation: no identifiable sources Education Materials Provided: Mediterranean Diet, Healthy You - Planning Healthy Meals (blue cover), and Improving Health with Fiber READINESS TO LEARN Cognitive ability: Alert and oriented Motivation to learn: Interested Family support: Unable to assess - Family not present Instruction provided to: Patient Patient learns best by: Individual Instruction Factors affecting learning: None Physical limitations affecting learning: None Referred/Supervised by: Viktoriya/Peace MNEh Billing Type: Initial Assess/15 min 3 units SIGNATURE: Patricia Aguilar RD PATIENT NAME: Shade Brambila DATE: May 14, 2022 TIME: 12:14 PM documented in this encounter [facility] 05-12-2022 History of Presen t illness Narrative RADIOLOGY SERVICE PROGRESS NOTE SERVICE DATE: 05/12/2022 SERVICE TIME: 7:55 AM PATIENT IDENTITY VERIFICATION COMPLETED USING TWO (2) STANDARD IDENTIFIERS: Name and Date of confirmed by patient verbally and Name and Date of confirmed by identification band FALL SCREENING: Has the patient had 2 falls in the last year or 1 fall with injury or currently using an Ambulatory Assistive Device (Walker, Cane, Wheelchair, Crutches, etc.)? Yes, Patient High Risk for Falls What interventions were put in place to prevent falls during this visit? Instructed Patient to Call for Help if Needed, Instructed Patient to Remain Seated (Not on Exam Table) Until Exam, and Increased Observations by Caregivers PATIENT GENDER DATA: .female : No ALLERGIES: Reviewed and unchanged MEDICATIONS REVIEWED: Not applicable PATIENT RELEVANT IMPLANT DATA REVIEWED: Not Applicable CREATININE: Creatinine Date Value Ref Range Status 05/04/2022 0.97 (H) 0.58 - 0.96 mg/dL Final 09/19/2021 0.67 0.6 - 1.3 MG/DL Final 02/04/2021 0.96 0.58 - 0.96 mg/dL Final Estimated Glomerular Filtration Rate Date Value Ref Range Status 05/04/2022 67 >=60 mL/min/1.73m Final Comment: Estimated Glomerular Filtration Rate (eGFR) is calculated using the 2020 CKD-EPI creatinine equation. This equation utilizes serum creatinine, sex, and age as parameters. The creatinine assay has traceable calibration to isotope dilution-mass spectrometry. Refer to KDIGO guidelines for clinical interpretation. In patients with unstable renal function, e.g. those with acute kidney injury, the eGFR may not accurately reflect actual GFR. eGFR- Date Value Ref Range Status 02/04/2021 >60 Final P.O.C.T. RESULTS: N/A May 12, [address] PERFORMED: No IV SITE: Ambulatory: A peripheral IV was started in the Right antecubital site with a Angio cath: 22 gauge. POST EXAM PIV STATUS: Discontinued PROCEDURE TYPE: NM Stress: 12.7 mCi [id number] was administered IV for Rest Imaging at 07:13 by . 32.8 mCi [id number] was administered IV for Stress Imaging at 07:53 by . PATIENT DISCHARGED TO: Ambulatory patient, left [place] department area. A Diagnostic radioactive procedure has taken place, with no further precautions necessary other than routine body substance precautions. More information regarding radiation safety can be found using this link: [email or web address] SIGNATURE: AMANDA Velazquez PATIENT NAME: Shade Brambila DATE: May 12, 2022 TIME: 7:55 AM PAGER/CONTACT #: documented in this encounter [facility] 05-05-2022 Miscellaneous Notes Received records [facility] for Shanel Newell to review for appointment on 06/03/2022 documented in this encounter [facility] 04-22-2022 History of Presen t illness Narrative Images from the original note were not included. [facility] SECTION OF REGIONAL CARDIOLOGY [facility] OUTPATIENT VISIT DATE April 22, 2022 PRIMARY CARE PHYSICIAN: Alvina Sullivan MD (Javon) [address] [address] HISTORY OF PRESENT ILLNESS: Ms. Brambila is a 61 year old female. Patient presents for evaluation and treatment options with recent diagnosis of chronic heart failure preserved ejection fraction. She was seen at [facility] at which time she was placed on diuretics with improvement of lower extremity edema and dyspnea. She apparently had a normal echocardiogram. She was told that her heart is stiff . She denies exertional chest discomfort, orthopnea, paroxysmal nocturnal dyspnea, palpitations, near-syncope or syncope. She does have a history of lower extremity vascular disease with somewhat noncompressible arteries. She has been told she has venous insufficiency. Her edema in her lower extremities has dramatically improved and there are ulcers that are apparently healing. She does have a history she believes of apnea and has not been screened for obstructive sleep apnea. The patient is single and, never with no children and lives at home alone with her cat. She is a non-smoker and social drinker. 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 She previously before the pandemic walked several miles per day but since being at home, has not done so. She unfortunately has developed problems with proprioception due to diabetes which is poorly controlled and now utilizes a cane to help her. She does not need a balanced nor heart healthy diet and would like help with doing so. Cardiac risk factors: Age,, postmenopausal female, hypertension, hyperlipidemia, diabetes Impression: 1. Chronic heart failure preserved ejection fraction 2. Hypertension 3. Hyperlipidemia 4. Type 2 diabetes with poor control 5. Venous stasis ulcers 6. Abnormal ABIs 7. Abnormal EKG 8. Dyspnea on exertion PLAN AND RECOMMENDATIONS: The patient's symptoms of cardiac decompensation are improving. We would continue her current diuretic regimen lab testing in the near future including a BMP and BNP. We will have her follow-up with the CHF clinic and have referred her to such. Due to her vascular disease we took the liberty of referring her to vascular surgery for evaluation and treatment options as needed. Given her cardiovascular risk profile, continued dyspnea and abnormal EKG, we will perform nuclear stress imaging with Lexiscan to evaluate for provokable ischemia. She will need screening for obstructive sleep apnea which we will place an order for as well. Lastly, the patient should have help with her diet and lifestyle for which we have referred her to nutrition. We discussed the need for fluid and sodium restriction as well as daily weights. We discussed the role of regular exercise with eventual incorporation of resistance training. We will look forward to reevaluating her in several weeks time at which time we will review testing as well. Vitals: BP 120/68 Pulse 76 Ht 172.7 cm (5' 8) Wt 104 kg (229 lb 4.8 oz) SpO2 98% BMI 34.86 kg/m Physical Exam Vitals reviewed. Constitutional: General: She is not in acute distress. Appearance: Normal appearance. She is well-developed. HENT: Head: Normocephalic and atraumatic. Nose: Nose normal. Eyes: General: No scleral icterus. Right eye: No discharge. Left eye: No discharge. Pupils: Pupils are equal, round, and reactive to light. Neck: Thyroid: No thyromegaly. Vascular: No carotid bruit or JVD. Cardiovascular: Rate and Rhythm: Normal rate and regular rhythm. Heart sounds: Normal heart sounds. No murmur heard. No friction rub. No gallop. Pulmonary: Effort: Pulmonary effort is normal. No respiratory distress. Breath sounds: Normal breath sounds. No wheezing or rales. Abdominal: General: Bowel sounds are normal. Palpations: Abdomen is soft. Musculoskeletal: General: Normal range of motion. Cervical back: Normal range of motion and neck supple. Skin: General: Skin is warm and dry. Capillary Refill: Capillary refill takes less than 2 seconds. Coloration: Skin is not pale. Neurological: Mental Status: She is alert and oriented to person, place, and time. Cranial Nerves: No cranial nerve deficit. Psychiatric: Behavior: Behavior normal. Thought Content: Thought content normal. Judgment: Judgment normal. Review of Systems Constitutional: Negative for activity change and fatigue. HENT: Negative for ear pain and facial swelling. Eyes: Negative for pain and discharge. Respiratory: Negative for chest tightness and shortness of breath. Cardiovascular: Positive for leg swelling. Negative for chest pain and palpitations. Gastrointestinal: Negative for abdominal pain, blood in stool, nausea and vomiting. Endocrine: Negative for cold intolerance and heat intolerance. Genitourinary: Negative for frequency and hematuria. Musculoskeletal: Negative for arthralgias and gait problem. Skin: Negative for color change, pallor and rash. Allergic/Immunologic: Negative for immunocompromised state. Neurological: Negative for dizziness, syncope, light-headedness and headaches. Hematological: Negative for adenopathy. Does not bruise/bleed easily. Psychiatric/Behavioral: Negative for confusion. The patient is not nervous/anxious. PAST MEDICAL HISTORY Diagnosis Date Charcot left foot due to diabetes mellitus (HCC) 05/2013 subsequent to left foot fracture Depression Diabetes (HCC) 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 Vitamin D deficiency 01/05/2017 PAST SURGICAL HISTORY Procedure Laterality Date DILATION & CURETTAGE DX&/THER NONOBSTETRIC x3 EXTENSIVE HAND SURGERY Dupuytren contracture TONSILLECTOMY HX Social History Tobacco Use Smoking status: Never Smokeless tobacco: Never Vaping Use Vaping Use: Never used Substance Use Topics Alcohol use: No Drug use: No FAMILY HISTORY Problem Relation Age of Onset Heart Father CHF Hypertension Father Hypertension Mother other (polycystic kidney disease) Mother Cancer Paternal Aunt breast CA Diabetes Brother other (CHF) Paternal Grandmother Coronary Artery Disease Brother MD and at age 45 ALLERGIES No Known Allergies CURRENT MEDICATIONS: metFORMIN (GLUCOPHAGE) 1,000 mg tablet Take 1 tablet by mouth twice daily with meals. E11.3599 atorvastatin (LIPITOR) 40 mg tablet Take 1 tablet by mouth once daily. empagliflozin (JARDIANCE) 25 mg tablet Take 1 tablet by mouth daily with breakfast. furosemide (LASIX ORAL) Take 40 mg by mouth once daily. FLUoxetine (PROZAC) 40 mg capsule Take by mouth q 24 HR. insulin regular human, CONCENTRATED 500 UNIT/ML, (HUMULIN R) 500 unit/mL (3 mL) inpn 90 units sc at breakfast, 40 units at lunch, 90 units at supper. blood sugar diagnostic (ACCU-CHEK JOSE PLUS TEST STRP) test strip USE TO TEST BLOOD GLUCOSE 3 TIMES DAILY. lancets (ONE TOUCH DELICA) 33 gauge USE TO BLOOD GLUCOSE 3 TIMES DAILY. INSULIN DEPENDENT E11.3299, E11.65, Z79.4 insulin needles, DISPOSABLE, (BD INSULIN PEN NEEDLE UF) 31 gauge x 5/16 FOUR DAILY FOR INSULIN INJECTIONS. enalapril (VASOTEC) 10 mg tablet Take 1 tablet by mouth once daily. Blood-Glucose Meter misc Use to test blood glucose 3 times daily. Insulin Dependent E11.3299, E11.65, Z79.4 Cholecalciferol, Vitamin D3, 50 mcg (2,000 unit) cap Take 1 tablet by mouth once daily. spironolactone (ALDACTONE) 25 mg tablet Take 25 mg by mouth once daily. Take half tablet by mouth daily atorvastatin (LIPITOR) 20 mg tablet Take 1 tablet by mouth once daily. EKG performed today demonstrates sinus rhythm at 73 bpm Possible LVH and age undetermined septal infarct. Olegario Sadler DO, FACC, FACOI Clinical and Preventive Cardiology Department of Medicine and Division of Cardiology, [facility] Garden Consultantpatient placement coordinator [facility] Garden Consultant of Congestive Heart Failure Clinic [facility] Cardiology Office Garden Consultant [facility] Staff Inside Sales Agent, Jaleel and Patience Hirsch Department of Cardiovascular Medicine/Heart and [facility] [place], [facility] Clinical Workers' Compensation Mediator Profressor of Medicine, [facility] Please note: This note has been produced using speech recognition software and may contain errors related to that system including elysia, punctuation, spelling, words, gender and phrases that may be inappropriate. documented in this encounter [facility] 04-07-2022 Miscellaneous Notes Reviewed, agreed. Has this been reviewed? Patient returned call. State's she had an episode on Wednesday of a lower BS (76). She wasn't feeling good that day to begin with. She did eat and it came back up. She could not recall that this is has happened more than once. She just remembers the one she had on Wednesday03/30/2022. Recommended she keep a log of her BS's, testing as ordered, and in addition if she has symptoms of low BS she needs to test and log all readings. If there is a pattern of low BS's happening several times per week she needs to let us know so we can make dose changes. She stated understanding and agreeable. Received a call from patient's Pharmacist (Ramiro). State's he needed to confirm her diabetes medication doses to make sure there is not duplicate therapy prescribed by PCP, who is outside [facility]. Called and spoke to Ramiro confirmed all doses. He also stated that since she was seen on 03/23/2022 and doses were increased she has had dizziness and unsteadiness, no syncope or falls reported. She thought it was related to the Metformin. Ramiro already discussed with her that this is most likely not related to the Metformin but could be related to insulin. He asked if she tested her BS when this happened and she stated no. He recommended to her that she do this in the future. Discussed that I will reach out to the patient to obtain more information. Called patient's home/cell# at [phone], no answer, no VM. Will attempt at another time. documented in this encounter [facility] 04-01-2022 History of Presen t illness Narrative Time Spent on Encounter: 21 - 30 Minutes Pharmacists-[address] Work Phone: 03-25-2022 History of Presen t illness Narrative Images from the original note were not included. Problem list reviewed. CHIEF COMPLAINT: BL LE lateral leg wound and DM foot care DM II A1c 10.3 DLS 10/28/2021 HISTORY OF PRESENT ILLNESS: Patient presents today for check of BL LE wounds, was last seen in office for routine care. is being seen at [facility] primarly for the for BL LE wounds. Last nail visit had 7 wounds, here today for work up at [facility] and get set up with [facility]. previously sent cipro and sent RX for cicade wraps but is worsening and has worsening woudns and rednees referred by Dr. 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 got wounds from rubbing CURRENT MEDICATIONS: Doxycycline Hyclate Oral Capsule 100 MG(11/28/2021) Take 1 capsule twice a day for 7 day(s) HumuLIN R U-500 KwikPen Subcutaneous Solution Pen-injector 500 UNIT/ML(09/29/2021) INJECT 90 UNITS SUBCUTANEOUSLY AT BREAKFAST TIME, 40 UNTIS AT LUNCH, AND 90 UNITS AT SUPPER Ciprofloxacin HCl Oral Tablet 500 MG(11/28/2021) Take 1 tablet twice a day for 7 day(s) BD Pen Needle Short U/F Miscellaneous 31G X 8 MM(05/14/2021) metFORMIN HCl Oral Tablet 1000 MG(05/10/2021) ALLERGIES: Band-Aid [place] Surg Dressing Other Bandaging Tape Other PAST MEDICAL HISTORY: Podiatry History remarkable for Foot Numbness, Fungal Nails, Leg or Foot Ulcers. The patient has a past medical history of Arthritis, Depression, DM-Medication Dependent, Poor Circulation. Neuropathy High Cholesterol SURGICAL HISTORY: Hand Tonsils HOSPITALIZATIONS: None Noted SOCIAL HISTORY: Smoking Status: Never smoker; Last Reviewed: 03/05/2022 Alcohol use: social drinker No drug use Social History Reviewed (01/16/2021 11:20:18 AM EST) FAMILY HISTORY: There is a family history of Denial of any knowledge of significant family history. Denial of any knowledge of significant family history Family History Reviewed (01/16/2021 11:20:19 AM EST) REVIEW OF SYSTEMS: Psychologic: Admits to No psych symptoms. Review of systems otherwise negative PHYSICAL EXAMINATION: Vital Signs: Weight 235 lbs; Height 5 ft 8 in; BMI 35.7 03/17/2022 3:55 PM (EST) Temperature 98.6 F; Pulse Rate 100 bpm; Blood Pressure 120 / 80 mm/Hg Vascular Exam: BL Foot DP / PT pulses +2/4 CFT less than 3 seconds to digits, skin temp warm to warm from proximal to distal BL Foot Dermatologic Exam: All wounds 100 fibrotic and all post 80 percent left lower moderate serous drainage RT anterior proximal lower leg ulcer .2x.2x.1cm and post .3x.3x.1cm Nails 1-5 Bilateral are thickened, elongated and discolored with subungual debris. The nails are greater than .3mm in thickness. There is pain with direct palpation of the nails and lateral compression of then nail. The discoloration is yellowish in color. Innerspaces 1-4bl are clean dry and intact. Skin texture and turgor are decreased. absent or decreased hair growth bilateral . nail changes bilateral Neurologic Exam: Comments/Other Findings: Vibratory sensations decreased BL at the MPJ, Protective sensations absent BL tested with 5.07 monofilament, and light, sharp, and temperature sensations intact bl. Muscle Testing of the Extensors, Flexors, Evertors (peroneals) , and Invertors ( posterior tibialis) BL leg shows 5/5 testing noted. Normal Babinski test noted bl foot after testing Orthopedic Exam: Additional Orthopedic Findings: Ortho Exam: Muscle Strength +5/5 as tested for all Invertors, Evertors, Flexors, and Extensors of the Lower Extremity b/l. Heel pain right posterior noted with mild edema second toe is red swollen but rectus no cerpitu s Ankle Joint demonstrated normal ROM and was pain free without crepitus. Subtalar Joint demonstrated normal ROM without pain or crepitus. Midtarsal Joint demonstrated normal ROM without pain or crepitus. 1st MPJ demonstrated normal ROM without pain or crepitus. Foot type is noted to be rectus. Negative pain noted with palpation to Achilles tendon, posterior calcaneus, plantar calcaneus, base of 5th metatarsal, calcaneal beak, lateral malleolus, medial malleolus, ATFL, CFL, PTFL. Negative Cotton test, Negative anterior Drawer test. DIAGNOSIS: Left foot pain Right foot pain Pain of toe of left foot Pain of toe of right foot Dermatophytosis of nail Type II diabetes mellitus with neurological manifestations Acquired equinus deformity of left foot Acquired equinus deformity of right foot Cellulitis of left lower leg Diabetic foot ulcer Calcaneal spur, left foot Lymphedema of both lower extremities Ulcer of left lower extremity, limited to breakdown of skin Ulcer of left heel and midfoot, limited to breakdown of skin PAD (peripheral artery disease) Contusion of left foot including toes, initial encounter Closed displaced fracture of lesser toe of left foot with routine healing Venous stasis ulcers of both lower extremities Non-pressure chronic ulcer of other part of right lower leg limited to breakdown of skin Non-pressure chronic ulcer of other part of left lower leg limited to breakdown of skin PVD (peripheral vascular disease) Venous stasis ulcer of left ankle with fat layer exposed without varicose veins PLAN AND TREATMENT: ASSESMENT & PLAN BL Foot and Ankle and Lower extremity Exam and Evaluation carried out with a treatment plan reviewed with the patient and findings discussed with patient including alternatives, benefits, complications and risks. PREVIOUS TESTS / IMAGING / X-RAY EXAM Xrays Taken AP MO LAT Left Foot Weightbearing , x-ray safety and precautions were reviewed with patient and a lead apron was applied to patient. no gas no air no lytic canges left heel and there is no fractures noted spurring noted heel plantar fracture second toe distal phalanx with no displacement PVR RESULTS: RIGHT SIDEResting right ankle brachial index: 1.37Right toe brachial index: 0.70Normal ankle brachial index at rest in the right leg.Normal toe brachial index at rest in the right leg.Right ankle: Normal at rest. LEFT SIDEResting left ankle brachial index: 1.33Left toe brachial index: 0.83Normal ankle brachial index at rest in the left leg.Normal toe brachial index at rest in the left leg.Left ankle: Normal at rest. debrided RT lower leg wounds with Excisional debridement carried out of the wound with non selective sharp excisional debridement past the dermis into SUBCUTANEOUS level with use of curette and 15 scalpel bladed debriding non viable tissue out of wound. We then flushed out the wound with wound and put dressing on. cont compresiosn got circade legs look great is done here at [facility] see me at office ein 4 weeks Left foot pain 729.5 M79.672 & Right foot pain 729.5 M79.671 & Pain of toe of left foot 729.5 M79.675 & Pain of toe of right foot 729.5 M79.674 & Dermatophytosis of nail 110.1 B35.1 & Type II diabetes mellitus with neurological manifestations 250.60 E11.49 & Acquired equinus deformity of left foot 736.72 M21.6X2 & Acquired equinus deformity of right foot 736.72 M21.6X1 & Cellulitis of left lower leg 682.6 L03.116 & Diabetic foot ulcer 250.80 E11.621 & Calcaneal spur, left foot 726.73 M77.32 & Lymphedema of both lower extremities 457.1 I89.0 & Ulcer of left lower extremity, limited to breakdown of skin 707.10 L97.921 & Ulcer of left heel and midfoot, limited to breakdown of skin 707.14 L97.421 & PAD (peripheral artery disease) 443.9 I73.9 & Contusion of left foot including toes, initial encounter 924.20 S90.32XA & Closed displaced fracture of lesser toe of left foot with routine healing V54.19 S92.502D & Venous stasis ulcers of both lower extremities 459.81 I83.019 & Non-pressure chronic ulcer of other part of right lower leg limited to breakdown of skin 707.19 L97.811 & Non-pressure chronic ulcer of other part of left lower leg limited to breakdown of skin 707.19 L97.821 & PVD (peripheral vascular disease) 443.9 I73.9 & Venous stasis ulcer of left ankle with fat layer exposed without varicose veins 459.81 I87.2 documented in this encounter [facility] 03-24-2022 Instructions Amena Leonard RN - 03/24/2022 10:15 AM EDT WOUND CARE INSTRUCTIONS- Shade Brambila Wound location: Bilateral lower legs - moisturize legs daily and wear circaid wraps. Put on in the morning and okay to remove at bedtime. COMPRESSION Compression wrap must be removed if: it becomes wet or soiled If you have numbness or tingling in your foot or toes If you have increased pain If toes become cold or discolored - Avoid sitting with legs in a dependent position or standing for long periods of time. - Attempt to lay flat and elevate your legs above the level of your heart 2-3 times daily, for 30 minutes at a time. - Be sure to continue walking and/or calf pumps and exercises to mimic writing the alphabet with your foot, as instructed - Control your sodium intake as instructed by provider To give your wound the best chance to heal: - Eat three balanced meals daily focusing on the protein - Control your blood sugar. Keep blood sugar less than 200 - Complete your wound care instructions as ordered - Vitamin C 500 mg twice daily - Multiple Vitamin Daily - Drink a protein shake daily - Premiere Clear or Glucerna for Diabetic patients, Nepro for renal patients and premieranibal for non-renal and non-diabetic patients Report any of the following signs and symptoms of infection to the Wound Center at [phone] or go to the Emergency Department: Fever or chills Increased drainage Green or yellow drainage Foul odor Increased pain Hardness around the wound Redness, warmth or swelling of the surrounding tissue Color change to the wound PLAN/ORDERS: 1. Return to the wound center to see Dr Cici KENNEY in the wound center as needed 2. Schedule with Dr. Bolanos at podiatry for routine foot and nail care 3. Continue aggressive nutritional support to assist wound healing 4. PRISM - Phone: Giovanni Bolanos DPM /mh/bb documented in this encounter [facility] 03-24-2022 Nurse Note Nursing Documentation Pertinent Medical History: DM2 Wound Etiology according to patient: wounds spontaneously opened up over last 2 months Patient arrived via: ambulatory with [facility] Care AQS/Nursing Facility: N/A Consent captured for debridement per Dr Cici KENNEY and good until June 2022 Anticoagulant Therapy: n/a ACTIVE CARE PER PROVIDER: WOUND # 2 right anterior mid lower leg Combined with #3 01-13-2022 WOUND # 3 right anterior distal lower leg Combined with #2 01-13-2022 WOUND ASSESSMENT: Refer to Provider's Wound Assessment Note VASCULAR ASSESSMENT BY PROVIDER: see provider wound assessment note CHF History: denies EDEMA: Right foot: 1+ Right calf: 1+ Left Calf: 1+ Left foot 1+ Other: NA MEASUREMENTS: In cm Right Calf: 34.4 cm Right Ankle: 22.4 cm Left Calf: 33.5 cm Left Ankle: 22.0 cm Length: 43.0cm - Not measured at today's visit WOUND PHOTOGRAPHY: NO DEBRIDEMENT PROCEDURE BY PROVIDER: Anesthetic Used: None Wound # All wounds Other procedure: mechanical washing of all wounds Specimen collected: n/a WOUND TREATMENT PER MD ORDER: Wounds cleansed by mechanical debridement to allow provider to visualize wound base WOUND # 1 right anterior proximal lower leg WOUND #4 right posterior proximal lower leg closed 01-13-2022 WOUND #5 LOCATION: right posterior mid lower leg Closed 01-13-2022 WOUND #6 LOCATION: right posterior distal lower leg Closed 01-13-2022 WOUND #7 Left anterior lower leg - closed 02/17/22 WOUND # 8 Left anterior lateral lower leg closed 01-13-2022 WOUND #13 Right Anterior Lateral steiner WOUND # 14_LOCATION: LLE anterior proximal cluster - closed 02/17/22 WOUND # 15 LOCATION: LLE Medial Anterior - closed 02/17/22 WOUND # 16_LOCATION: Left foot dorsum 1st met Head - closed 02/17/22 WOUND # 17 LOCATION: LLE Proximal lateral ankle - closed 02/17/22 WOUND # 9 Left lateral ankle L: cm x W: cm x D: cm - closed 03/24/22 Debridement by provider: N/A Post debridement measurements if applicable : L: cm x W:cm x D: cm WOUND #10 Left lateral ankle - posterior L: cm x W:cm x D:cm - closed 03/24/22 Debridement by provider: N/A Post debridement measurements if applicable : L:cm x W:cm x D: cm WOUND # 11 Left posterior leg - proximal L: cm x W: cm x D: cm - closed 03/24/22 Debridement by provider: N/A Post debridement measurements if applicable : L: cm x W: cm x D: cm WOUND #12 Left posterior leg - distal L: cm x W: cm x D:cm - closed 03/24/22 Debridement by provider: N/A Post debridement measurements if applicable : L:cm x W: cm x D:cm WOUND # _18_ LOCATION: Right Lateral Leg - superior (new 02/17/22) L: cm x W: m x D: Cm- closed 03/24/22 Debridement by provider: N/A WOUND # _19__ LOCATION: Right Lateral Leg - Inferior (new 02/17/22) L: cm x W: cm x D: cm- closed 03/24/22 Debridement by provider: N/A Post debridement measurements if applicable : L: cm x W:cm x D: cm WOUND # 20_ LOCATION: Right Anterior Lower Leg - Superior (new 02/17/22) L: cm x W: 0cm x D: cm- closed 03/24/22 Debridement by provider: N/A Post debridement measurements if applicable : L: cm x W: cm x D: cm WOUND # __21_ LOCATION: Right Anterior Lower Leg - Mid (new 02/17/22) L: 1cm x W: cm x D: cm - closed 03/24/22 DEBRIDEMENT: N/A Post debridement measurements if applicable : L: cm x W: cm x D: cm WOUND # _22_LOCATION: Right Anterior leg (new 02/17/22) - scattered intact serous-filled blisters- resolved 03/24/22 Cleansed with: Applied to naya-wound skin: vaseline Applied to wound bed: Covered and secured with: Other: COMPRESSION: patients circaid SPECIAL NEEDS: Coordination of care N/A Emotional support N/A OR set-up N/A Yarn Examiner N/A Incontinence needs N/A DISCHARGED in stable condition to: Home ambulatory with cane Global surgical period dates if applicable: N/A PLAN/ORDERS: 1. Return to the wound center to see Dr Cici KENNEY in the wound center as needed 2. Schedule with Dr. Bolanos at podiatry for routine foot and nail care 3. Continue aggressive nutritional support to assist wound healing 4. PRISM - Phone: EDUCATION: The patient/family was instructed how to cleanse the wound(s). Visual demonstration on how to apply the dressing with teach back method. Signs & symptoms of infection were reviewed: Increased redness, swelling, pain, green/yellow drainage, fever and/or chills would all need to be evaluated by a Physician. Patient received typed home-going wound care instructions and has expressed intent to comply. OTHER EDUCATION: Education performed regarding lymphedema/edema: Elevation of extremity above the heart for 30 minutes three times daily and as needed Exercise such as writing the ABC's with your toes in the air, walking and/or calf pumps Wearing compression as ordered by provider Diet controlling of sodium as instructed by provider Use of medication to help control edema. UNIVERSAL PROTOCOL / SAFETY CHECKLIST- N/A Current HBOT Status: Active or Complete - see screening below WOUND CENTER HYPERBARIC OXYGEN THERAPY SCREENING 1. Is the patient diabetic? (If No, skip to question 5) Yes 2. Does the patient have a lower extremity wound? Yes 3. Is there exposed/involved tendon or bone? No 4. Has the wound been present for 30 days? Yes If Yes to ALL questions above, consult the Hyperbaric Center 5. Has the patient been diagnosed with osteomyelitis? No 6. Has the patient had a previous skin graft or flap at the wound? No 7. Has the patient had or been offered vascular intervention/evaluation? No 8. Does the patient have a wound at an amputation site? No 9. Has the patient had radiation therapy at the site of the problem? No If Yes to ANY of questions 5-9, consult the Hyperbaric Center Amena Leonard RN/bb documented in this encounter [facility] 03-23-2022 Instructions Giovanni Cerrato MD - 03/23/2022 2:14 PM EDT Change U500 doses to 100 - 40 - 80 Start Jardiance 25 mg daily A1C 10.1% Get diabetic eye exam. See us again in 6 months. documented in this encounter [facility] 03-23-2022 History of Presen t illness Narrative Follow-up 61 year-old female, patient of Dr. Alvina Sullivan, with historically uncontrolled insulin-requiring type 2 diabetes mellitus since 1998. Has been on insulin for several years, currently takes metformin 1000 mg bid and U500 insulin pens at meals. She has a glucose meter, checks her glucose levels 1-3x daily. She is seeing more glucose levels less than 200 mg/dL, but is having overrnight hypoglycemia detected by her glucose sensor. Notes she has good insulin dosing adherence, is injecting insulin 3x daily. Is checking her fingerstick glucose 3x daily, using results to guide her insulin treatment. Denies hypoglycemic reactions. Non-smoker, denies alcohol use. NKDA. Review of her diet shows some overindulgence in carbohydrates. Medication list, insulin doses reviewed with the patient, reconciled. Family history of polycystic kidney disease, heart disease, hypertension, diabetes, arthritis, breast cancer, and colonic polyps. Maximal lifetime weight was 260 pounds. Refuses flu shots. Had diabetic eye exam in 04/2021. COVID vaccine hasn't been done yet. Has a continuous glucose monitoring system. Current Outpatient Medications on File Prior to Visit Medication Sig spironolactone (ALDACTONE) 25 mg tablet Take 25 mg by mouth once daily. Take half tablet by mouth daily furosemide (LASIX ORAL) Take 40 mg by mouth once daily. FLUoxetine (PROZAC) 40 mg capsule Take by mouth q 24 HR. insulin regular human, CONCENTRATED 500 UNIT/ML, (HUMULIN R) 500 unit/mL (3 mL) inpn 90 units sc at breakfast, 40 units at lunch, 90 units at supper. blood sugar diagnostic (ACCU-CHEK JOSE PLUS TEST STRP) test strip USE TO TEST BLOOD GLUCOSE 3 TIMES DAILY. lancets (ONE TOUCH DELICA) 33 gauge USE TO BLOOD GLUCOSE 3 TIMES DAILY. INSULIN DEPENDENT E11.3299, E11.65, Z79.4 insulin needles, DISPOSABLE, (BD INSULIN PEN NEEDLE UF) 31 gauge x 5/16 FOUR DAILY FOR INSULIN INJECTIONS. atorvastatin (LIPITOR) 20 mg tablet Take 1 tablet by mouth once daily. enalapril (VASOTEC) 10 mg tablet Take 1 tablet by mouth once daily. metFORMIN (GLUCOPHAGE) 1,000 mg tablet Take 1 tablet by mouth twice daily with meals. Blood-Glucose Meter mis Use to test blood glucose 3 times daily. Insulin Dependent E11.3299, E11.65, Z79.4 Cholecalciferol, Vitamin D3, (VITAMIN D-3) 2,000 unit cap Take 1 tablet by mouth once daily. 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 Vitamin D deficiency 01/05/2017 PAST SURGICAL HISTORY PAST SURGICAL HISTORY Procedure Laterality Date D&C, DIAG AND/OR THERAPEUTIC x3 EXTENSIVE HAND SURGERY Dupuytren contracture TONSILLECTOMY HX Review of systems: Patient notes no weight loss, fever, weakness, change in balance or sensation, visual problems, hearing changes, dizziness, trouble swallowing, nasal difficulties, chest pain, foot or leg problems, skin lesions, abdominal pain, diarrhea, constipation, urinary problems, incontinence, back pain, joint pains, anxiety, depression, menstrual difficulties, breast lesions/pain/mass. Remainder of review of systems was unremarkable. . BP 160/79 (BP Site: Left Arm, BP Position: Sitting, BP Cuff Size: Regular Adult) Pulse 74 Wt 106.6 kg (235 lb) SpO2 97% BMI 35.73 kg/m Healthy-appearing obese (BMI > 30) female in no distress. Weight unchanged since 09/2021. Blood pressure elevated, pulse regular. Repeat BP 156/87 Thinning hair over the vertex. No thyromegaly. Breathing unlabored. Heart regular rate and rhythm. A1C today via Afinion was 10.1%. Results for SHADE BRAMBILA ( ) Ref. Range 09/19/2021 00:00 NA Latest Ref Range: 136 - 145 mmol/L 141 (A) K Latest Ref Range: 3.5 - 5.1 mmol/L 4.3 Chloride Latest Ref Range: 98 - 107 MEQ/L 103 BUN Latest Ref Range: 7 - 18 MG/DL 18 Creatinine Latest Ref Range: 0.6 - 1.3 MG/DL 0.67 Glucose Latest Ref Range: 74 - 106 MG/DL 90 Albumin Latest Ref Range: 3.2 - 4.6 gm/dL 3.8 AST Latest Ref Range: 8 - 37 U/L 21 Cholesterol, Total Unknown 184 Triglyceride Unknown 82 HDL CHOLESTEROL Unknown 65 LDL Cholesterol Unknown 102 Hemoglobin A1C Latest Ref Range: 0 - 5.7 % 10.3 (A) Alk Phos Total Latest Ref Range: 45 - 117 U/L 132 (A) ALT (SGPT) Latest Ref Range: 12 - 78 U/L 15 Bili Total Latest Ref Range: 0.2 - 1 mg/dL 0.5 Calcium Latest Ref Range: 8.5 - 10.1 mg/dL 10.0 Total Protein Latest Ref Range: 6.4 - 8.2 gm/dL 6.8 urine microalbumin/creatinine ratio in 09/2021 showed urine microalbumin/creatinine ratio 417 mg/gm. IMPRESSION: Type 2 diabetes mellitus, insulin-requiring - A1C still high but is trending down from 14% a few years ago. Urged continued good insulin dosing adherence. Insulin doses adjusted, add Jardiance. Hypertension sub optimal control. Check BP in the community, stressed goal BP less than 130/80. Hyperlipidemia continue atorvastatin Obesity - urged lowered carbohydrate diet approach Macroalbuminuria - urged better glucose control Heart failure with preserved ejection fraction - add Jardiance PLAN: Change U500 KwikPen doses to 100 units at breakfast, 40 units at lunch, 80 units at supper Start Jardiance 25 mg daily - risks, side effects discussed Get diabetic eye exam. See us again in [address] Sullivan for regular health care needs Giovanni Cerrato MD, FACP I spent a total of 30 minutes on the date of service which included preparing to see the patient, [id number] patient care, completing clinical documentation, performing a medically appropriate examination, counseling and educating the patient/family/caregiver and ordering medications, tests, or procedures. 10 documented in this encounter [facility] 03-19-2022 Chief complaint Narrative - Reported An interactive audio and video telecommunication system which permits real time communications between the patient (at the originating site) and provider (at the distant site) was utilized to provide this telehealth service.Verbal consent was requested and obtained from SHADE BRAMBILA on this date, 03/19/2022 03:40 PM , for a telehealth visit.This patient is being seen as part of a comprehensive [facility] ([facility]) visit. [id number]-[id number] Iris [address] [place] Work Phone: 03-17-2022 History of Presen t illness Narrative Episode Visit Count: 9 Medicare visits current year: 9 Therapist That Will Oversee The Plan Of Care: Hu Barraza Start of Care Date: 01/16/22 Onset Date: 12/16/21 Plan of Care Certification Date: 01/16/22 Next Certification Due Date: 03/17/22 Patient Identified by Name and Date of : Yes [facility] PHYSICAL THERAPY WOUND TREATMENT AND PROGRESS REPORT PLAN OF CARE UPDATE: Patient has made great gains with wound closure. LEFT LE is fully closed. Some skin irritations but not open wounds. She did have a mechanical fall and her LEFT knee has a moderately sized scabbed abrasion. Her RIGHT LE is much improved also, with only one remaining area on the tricia-lateral lower leg. This remaining wound has dense fibrotic tissue webbed in granular buds. Good size reduction has occurred of this wound. Patient is using Circ-aides and is having some challenge applying the underlying sock. Education reinforced on application with stocking murphy. Patient to see MD next week at wound center. Anticipate further resolution of the last remaining wound. Further PT intervention pending status at follow up appointment. Functional Gains: wound closure achieved of LEFT LE and several RIGHT LE wounds, increased wound healing as evidenced by reduction of size of remaining wound, decreased nonviable tissue, increased viable tissue, decreased wound exudate and improved periwound appearance Goals for Episode of Care Updated: 03/17/2022 to be achieved by 03/17/22 Eliminate all nonviable tissue from wounds on BILATERAL LEs: MOSTLY MET: only one wound remains and it is marbled 50/50% with granular buds and dense fibrotic tissue Achieve full closure of wounds on BILATERAL LEs: MOSTLY MET: Only one wound remains on the RIGHT LE Eliminate wound exudate: MOSTLY MET: Remaining wound with min serosanguineous drainage. Decrease edema from 1 to 2 cm on widest calf for vascular decongestion and assist with wound closure: MET last session: Widest calf with grossly 4 cm reduction. Thighs continue to have edema, but it is improved. No longer has peau d'orange appearance. Eliminate pain associated with wounds: MET: Denies distinct wound pain--global ache of LEs that varies. PLAN: Pt to see MD next week. Further PT based wound care pending wound status at next appointment. SUBJECTIVE: Pt admits to taking a mechanical fall. Was holding her cat at the [email or web address] office and missed a step. Feels generally sore and achy but is ok. Abrasion of the LEFT knee. Patient states she is having some challenge applying the compression garment, but she is not giving up. Patient rating of condition: better Pain Tool: Verbal (Numeric Rating or Visual Analog Scale) Pain Level: 0 Pain Location: Other: See Comment (C/o general LE achiness, but not wound) Description: Aching Duration: Intermittent Intervention/Comfort measure: Medication;Reposition;Relaxation ;Distractions;Education;Emotiona l Support/Reassurance;Exercise;Pos itioning;Other: See comment (compression and elevation) Response To Pain Intervention: denies wound pain on exit PROMIS Scales T-scores: mean of general population = 50. 5 points is clinically meaningfully difference Percentiles provide an indication of how the patient's score ranks in relation to the general population. Higher percentile rankings indicate better function/quality of life. 50th percentile is the average of the general population and indicates half of respondents had a worse score. T-scores: mean of general population = 50. 5 points is clinically meaningfully difference Percentiles provide an indication of how the patient's score ranks in relation to the general population. Higher percentile rankings indicate better function/quality of life. 50th percentile is the average of the general population and indicates half of respondents had a worse score. OBJECTIVE MEASURES WITH LEVEL OF FUNCTION: Patient presents for follow-up wound care treatment. BILATERAL Circ-aide garments intact. She has her RIGHT toes with the stocking flossed inbetween the 3rd and 4th toe. Heel of the stockings on the sides of her foot. Substantial animal hair on the outside of the Circ-aide neoprene. Underlying the dressings are small silicone adhesive dressings, one on the dorsal LEFT foot and one over the remaining RIGHT LE wound. Patient notes the dorsal LEFT foot with irritation and that the RIGHT wound with scant drainage on each dressing removal. WOUND STATUS: All wounds healed except for the RIGHT more distal wound. 0.7 cm l x 0.6 cm w: Marbled fibrotic/granular. See Avatar flow sheet for details. RIGHT LE WOUNDS 01/16/2022 ( l x w) 03/12/2022 03/17/22 mid steiner 1.7 cm l x 2 cm w Closed CLOSED distal steiner 1.9 x 2.5 trace remains CLOSED distal lateral lower leg 4 x 2.5 1 x 0.9 0.7 x 0.6 posterior heel 1.3 x 1.5 Closed CLOSED lateral foot 3 in a cluster--dry Closed CLOSED medial/posterior cluster of ill-denied weeping Essentially closed-- 2 very small satellite wounds CLOSED LEFT LE WOUNDS 01/16/2022 (l x w) 03/12/2022 03/17/22 Dorsal foot 0.5 x 0.6 Closed CLOSED medial calf 0.8 x 0.7 Closed CLOSED Medial/anterior lower leg 2.5 x 2.3 Closed CLOSED proximal anterior 2.3 x 1 Closed CLOSED laterally Cluster of 7, largest 1.2 x 1 Closed CLOSED posterior 1 x 1.5 --- cluster of 2 Closed CLOSED TREATMENT: Conservative Sharp Debridement <20cm (10082): Scalpel used to score/break and remove fibrotic tissue on the remaining RIGHT LE wound. Skilled interventions: -Knowledge of tissue anatomy and wound care -Skilled judgment was provided after wound assessment in selection of appropriate interventions. -Skilled hands-on technique for active wound care/sharp debridement with appropriate instruments to debride/remove devitalized and/or necrotic tissue to promote wound healing. -Assessment of pain tolerance throughout the session -<20cm non-viable tissue removed Nonselective Debridement (27336): BILATERAL LEs and feet cleansed with warm soapy water and chlorhexidine. Mechanical debridement via guaze swiping to remove exudative crusts and fibrin on the RIGHT LE wound. Post care, BILATERAL LE and feet moisturized with Vaseline. Skilled interventions: -Skilled knowledge of wound care and skilled application of knowledge for optimal wound healing environment and preventing/ minimizing adverse side effects. -Skilled education on rationale for dressing choice for reinforcement and improved compliance at home. -Skilled judgement and knowledge for optimization of wound care and skin integrity. -Skilled gentle cleansing and mechanical debridement to remove non-viable tissue on wounds, reduce bio-burden, and promote improved skin integrity. -Dressing management/ application: Alginage Ag to the RIGHT wound and covered with Urgotul foam dressing. Compression via Circ-aide as noted below. Modalities: Noncontact Ultrasound MIST: 8 min to R LE wound Skilled interventions: -Proper administration and selection of modality based on clinical presentation, deficits, and needs -Patient response monitored throughout treatment [facility] Management: Re-instruction and reinforcement on the application of Circ-aide compression dressings. Instructed patient to assure more of the stocking foot is exposed on the stocking [place] to allow more accurate application over the toes and allow the heel of the dressing to be on the heel of the foot. Reinforced wear and care of the garment. Advised to use lint roller to remove pet hair on the dressing in attempts to keep Velcro piece more free of animal hair. Circ-aided applied BILATERALLY. Instructed on change of the RIGHT LE dressing every 48 hours. Skilled Intervention: Skilled judgment in the selection of proper modification for activity of daily living/home management based on clinical presentation, deficits, and needs. Physical assistance was provided during education for modifications and patient safety. Educated the patient regarding recommendations and provided written instruction to facilitate compliance. Reviewed patient specific diagnosis in relation to activities of daily living/home management. Post Treatment/Symptom(s): See above Adverse event? No Billing: Self Care / Home Management (29965): 1:1 time: 13 minutes (1 unit: 8-22 mins) Noncontact Ultrasound Mist (63953): no charge Selective Sharp Debridement <20cm (40142): 1 unit Nonselective debridement (81948): no charge Total Time: 55 minutes Hu Barraza PT documented in this encounter [facility] 03-12-2022 History of Presen t illness Narrative Episode Visit Count: 8 Medicare visits current year: 8 Therapist That Will Oversee The Plan Of Care: Hu Barraza Start of Care Date: 01/16/22 Onset Date: 12/16/21 Plan of Care Certification Date: 01/16/22 Next Certification Due Date: 03/17/22 Patient Identified by Name and Date of : Yes [facility] PHYSICAL THERAPY WOUND TREATMENT NOTE ASSESSMENT: patient's BILATERAL LE wounds are much improved. LEFT LE with all wounds resolved. Edema reduced. RIGHT LE with a small area remaining on the primary wound and very small satellite wounds nearly closed. Patient with excellent tolerance to treatment sessions. Transitioned to support garments. Continued care pending further improvement on the RIGHT LE. PLAN FOR NEXT VISIT: recheck/progress report SUBJECTIVE: Pt not feeling very well today. Feels weak and tired. Had blood work this am and hasn't really eaten yet due to fasting for the blood draw. Denies issues related to her BILATERAL LE wounds. Pain Tool: Verbal (Numeric Rating or Visual Analog Scale) Pain Level: 0 Pain Location: Other: See Comment (denies wound pains, general LE achiness) Description: Aching Duration: Intermittent Intervention/Comfort measure: Medication;Reposition;Relaxation ;Distractions;Education;Emotiona l Support/Reassurance;Exercise;Pos itioning;Other: See comment (compression and elevation) Response To Pain Intervention: denies wound pain OBJECTIVE: Patient presents for follow-up wound care treatment. BILATERAL compression dressings remain intact. WOUND STATUS: RIGHT LE WOUNDS 01/16/2022 ( l x w) 03/12/2022 mid steiner 1.7 cm l x 2 cm w Closed distal steiner 1.9 x 2.5 trace remains distal lateral lower leg 4 x 2.5 1 x 0.9 posterior heel 1.3 x 1.5 Closed lateral foot 3 in a cluster--dry Closed medial/posterior cluster of ill-denied weeping Essentially closed-- 2 very small satellite wounds LEFT LE WOUNDS 01/16/2022 (l x w) 03/12/2022 Dorsal foot 0.5 x 0.6 Closed medial calf 0.8 x 0.7 Closed Medial/anterior lower leg 2.5 x 2.3 Closed proximal anterior 2.3 x 1 Closed laterally Cluster of 7, largest 1.2 x 1 Closed posterior 1 x 1.5 --- cluster of 2 Closed Circumferential Measurements LLE Circumferential Measurements: Metatarsal Heads;Mid Foot;Ankle;10 cm;20 cm;30 cm Left Metatarsal Heads: 24 Left Mid Foot: 22.7 Left Ankle: 28.6 Left Lower Extremity 10cm: 22.7 Left Lower Extremity 20cm: 25.8 Left Lower Extremity 30cm: 34.4 RLE Circumferential Measurements: Metatarsal Heads;Mid Foot;Ankle;10 cm;20 cm;30 cm Right Metatarsal Heads: 24.1 Right Mid Foot: 24 Right Ankle: 28.5 Right Lower Extremity 10cm: 23.1 Right Lower Extremity 20cm: 26.5 Right Lower Extremity 30cm: 34.7 TREATMENT: Conservative Sharp Debridement <20cm (24140): Scalpel used to remove slough on the remaining wounds of the RIGHT LE and the scalpel was also used to score/break fibrotic tissue on the largest RIGHT LE wound. Skilled interventions: -Knowledge of tissue anatomy and wound care -Skilled judgment was provided after wound assessment in selection of appropriate interventions. -Skilled hands-on technique for active wound care/sharp debridement with appropriate instruments to debride/remove devitalized and/or necrotic tissue to promote wound healing. -Assessment of pain tolerance throughout the session -<20cm non-viable tissue removed Nonselective Debridement (30677): BILATERAL LEs and feet cleansed with warm soapy water and chlorhexidine. Mechanical debridement via guaze swiping to remove slough and exudative crusts. Post care, BILATERAL LE and feet moisturized with Vaseline. Skilled interventions: -Skilled knowledge of wound care and skilled application of knowledge for optimal wound healing environment and preventing/ minimizing adverse side effects. -Skilled education on rationale for dressing choice for reinforcement and improved compliance at home. -Skilled judgement and knowledge for optimization of wound care and skin integrity. -Skilled gentle cleansing and mechanical debridement to remove non-viable tissue on wounds, reduce bio-burden, and promote improved skin integrity. -Dressing management/ application: Acticoat to the RIGHT largest wound and covered with Urgotul foam dressing. Compression via Circ-aide as noted below. Modalities: Noncontact Ultrasound MIST: 8 min to R LE wounds Skilled interventions: -Proper administration and selection of modality based on clinical presentation, deficits, and needs -Patient response monitored throughout treatment [facility] Management: Instruction on application of Circ-aide compression dressings. Stocking jonah demonstrated to apply compression garment to foot and lower leg. Instructed on wear and care of the garment. Educated patient on OTC support stockings 20-30 mmHg if she is unsuccessful with management of the circ-aide. Circ-aided applied BILATERALLY. Instructed on change of the RIGHT LE dressing every 48 hours. Skilled Intervention: Skilled judgment in the selection of proper modification for activity of daily living/home management based on clinical presentation, deficits, and needs. Physical assistance was provided during education for modifications and patient safety. Educated the patient regarding recommendations and provided written instruction to facilitate compliance. Reviewed patient specific diagnosis in relation to activities of daily living/home management. Post Treatment/Symptom(s): See above Adverse event? No Billing: Noncontact Ultrasound Mist (20930): no charge Selective Sharp Debridement <20cm (46663): 1 unit Nonselective debridement (50601): no charge Self care/ Home Management (51079): 1:1 time: 26 min (2 units: 23-37 mins) Total Time: 63 minutes Hu Barraza PT documented in this encounter [facility] 03-05-2022 History of Presen t illness Narrative Episode Visit Count: 7 Medicare visits current year: 7 Therapist That Will Oversee The Plan Of Care: Hu Barraza Start of Care Date: 01/16/22 Onset Date: 12/16/21 Plan of Care Certification Date: 01/16/22 Next Certification Due Date: 03/17/22 Patient Identified by Name and Date of : Yes [facility] PHYSICAL THERAPY WOUND TREATMENT NOTE ASSESSMENT: pt states she feels like she is loosing water retention as her thighs do not feel as tight. She has cardiac workup later this date. Patient tolerated the BILATERAL compression dressings well this last week. Good progress is being made with her wounds as her LEFT LE only has one small wound remaining and the RIGHT LE is much improved with significant reduction in wound numbers and reducing size of the largest wound. Continued care is warranted and necessary to further address the wounds and promote wound resolution. PLAN FOR NEXT VISIT: continue with wound care, selective debridement to reduce devitalized tissue and imperative compression. US MIST to optimize healing SUBJECTIVE: Patient states she was supposed to get blood work done this am but couldn't as she needed to drink juice for low BS and her blood work was supposed to be fasting. She has cardiac testing later today then Podiatry for nail care. Patient states the dressings kept in place well this week and she was able to use bags to keep them dry in the shower. Pain Tool: Verbal (Numeric Rating or Visual Analog Scale) Pain Level: 0 Pain Location: Other: See Comment (denies wound pain, B LEs generally achy) Description: Aching Duration: Intermittent Intervention/Comfort measure: Medication;Reposition;Relaxation ;Distractions;Education;Emotiona l Support/Reassurance;Exercise;Pos itioning;Other: See comment (compression and elevation) Response To Pain Intervention: denies wound pains, states legs generally a little achy. OBJECTIVE: Patient presents for follow-up wound care treatment. BILATERAL compression dressings intact and in good position. WOUND STATUS: Largest primary wound anterior RIGHT LE: 3.4 cm l x 1.2 cm w RIGHT LE WOUNDS 01/16/2022 ( l x w) 03/05/2022 mid steiner 1.7 cm l x 2 cm w Closed distal steiner 1.9 x 2.5 trace remains distal lateral lower leg 4 x 2.5 3.4 x 1.2 posterior heel 1.3 x 1.5 Closed lateral foot 3 in a cluster--dry Closed medial/posterior cluster of ill-denied weeping *globally only 3 open areas including largest primary wound which is grossly 50% re-epithelialized LEFT LE WOUNDS 01/16/2022 (l x w) 02/26/2022 Dorsal foot 0.5 x 0.6 Closed medial calf 0.8 x 0.7 Closed Medial/anterior lower leg 2.5 x 2.3 Closed proximal anterior 2.3 x 1 Closed laterally Cluster of 7, largest 1.2 x 1 Closed posterior 1 x 1.5 --- cluster of 2 0.3 x 0.6 TREATMENT: Conservative Sharp Debridement <20cm (97488): Jewelers forceps used to selectively remove necrotic tissue from the B LE wounds. Forceps also used to score/break fibrotic tissue on the largest RIGHT LE wound as indicated. Skilled interventions: -Knowledge of tissue anatomy and wound care -Skilled judgment was provided after wound assessment in selection of appropriate interventions. -Skilled hands-on technique for active wound care/sharp debridement with appropriate instruments to debride/remove devitalized and/or necrotic tissue to promote wound healing. -Assessment of pain tolerance throughout the session -<20cm non-viable tissue removed Nonselective Debridement (76649): BILATERAL LEs and feet cleansed with warm soapy water and chlorhexidine. Mechanical debridement via guaze swiping to remove slough as able and exudative crusts. Post care, BILATERAL LE and feet moisturized with Vaseline and Zinc Oxide applied to naya-wound tissue. Skilled interventions: -Skilled knowledge of wound care and skilled application of knowledge for optimal wound healing environment and preventing/ minimizing adverse side effects. -Skilled education on rationale for dressing choice for reinforcement and improved compliance at home. -Skilled judgement and knowledge for optimization of wound care and skin integrity. -Skilled gentle cleansing and mechanical debridement to remove non-viable tissue on wounds, reduce bio-burden, and promote improved skin integrity. -Dressing management/ application: Acticoat to cover all wound beds + Mepilex transfer to the posterior LEFT wound for additional protection from wrinkling of the skin with ankle ROM + compression as below. Compression Therapy (Multilayer Venous Wound Compression System) (78000): Skilled interventions: -Skilled knowledge of wound care and skilled application of knowledge for optimal wound healing environment and preventing/ minimizing adverse side effects. -Skilled education on rationale for dressing choice for reinforcement and improved compliance at home. -Compression dressing Profore Lite (20-30mmHg) applied to Bilateral LE's with Unna layer proximally to secure/anchor the dressing and avoid migration with edema reduction. Modified application with dressing ankle to knee. Tubigrip applied to the foot BILATERALLY. Reinforced with patient to change foot compression daily and as needed for soiling. -Toes are warm and pink before and post boot application. -instructed that if the patient exhibits a change in color to the extremity, change in temperature, increased pain, or the dressing becomes wet (external soil or drainage strike-through), that the patient is to remove the dressing and call this PT. Patient voices understanding with intent to comply. Reinforced need for monitoring feet for more swelling and if modified dressing application causes more swelling, patient is to remove the dressings and cover dressings. Modalities: Noncontact Ultrasound MIST: 4 min to the LEFT posterior wound and 8 min to R LE wounds Skilled interventions: -Proper administration and selection of modality based on clinical presentation, deficits, and needs -Patient response monitored throughout treatment Post Treatment/Symptom(s): See above Adverse event? No Billing: Noncontact Ultrasound Mist (83542): no charge Selective Sharp Debridement <20cm (89593): 1 unit Nonselective debridement (42363): no charge Multi-Layer Venous Wound Compression System (28507): 1 unit (untimed) x 2 Total Time: 73 minutes Hu Barraza PT documented in this encounter [facility] 02-26-2022 History of Presen t illness Narrative Episode Visit Count: 6 Medicare visits current year: 6 Therapist That Will Oversee The Plan Of Care: Hu Barraza Start of Care Date: 01/16/22 Onset Date: 12/16/21 Plan of Care Certification Date: 01/16/22 Next Certification Due Date: 03/17/22 Patient Identified by Name and Date of : Yes [facility] PHYSICAL THERAPY WOUND TREATMENT NOTE ASSESSMENT: Patient's BILATERAL LEs are improving. LEFT LE with essentially only one wound remaining--posteriorly. RIGHT LE with mixed progress with reduction in size of original wounds but several more mildly denuded areas from further blister rupture. Continued wound care is warranted and necessary to further progress wound resolution. PLAN FOR NEXT VISIT: continue woth active wound care, compression dressings as warranted until wounds closed SUBJECTIVE: Patient anxious to be done with compression dressings. C/o LEFT dressing falling down and being more uncomfortable. Challenging to keep the dressings dry. Pain Tool: Verbal (Numeric Rating or Visual Analog Scale) Pain Level: 0 Pain Location: Other: See Comment (B LE wounds) Description: Aching Duration: Intermittent Intervention/Comfort measure: Medication;Reposition;Relaxation ;Distractions;Education;Emotiona l Support/Reassurance;Exercise;Pos itioning;Other: See comment (compression and elevation) Response To Pain Intervention: 0/10 in wounds OBJECTIVE: Patient presents for follow-up wound care treatment. Noted migration of BILATERAL dressings LEFT >> RIGHT WOUND STATUS: Largest primary wound anterior RIGHT LE: 3.2 cm l x 2.5 cm w RIGHT LE WOUNDS 01/16/2022 ( l x w) 02/26/2022 mid steiner 1.7 cm l x 2 cm w Closed distal steiner 1.9 x 2.5 1 x 1.2 distal lateral lower leg 4 x 2.5 3.2 x 2.5 posterior heel 1.3 x 1.5 Closed lateral foot 3 in a cluster--dry Closed medial/posterior cluster of ill-denied weeping *globally 9 open areas--mild denudement from blisters rupture LEFT LE WOUNDS 01/16/2022 (l x w) 02/26/2022 Dorsal foot 0.5 x 0.6 Closed medial calf 0.8 x 0.7 Closed Medial/anterior lower leg 2.5 x 2.3 Closed proximal anterior 2.3 x 1 Closed laterally Cluster of 7, largest 1.2 x 1 essentially Closed posterior 1 x 1.5 --- cluster of 2 0.6 x 0.8 Substantial bruising and irritation due to dressing migration and resultant wrinkles to the area TREATMENT: Conservative Sharp Debridement <20cm (72547): Jewelers forceps used to selectively remove necrotic tissue from the B LE wounds where indicated. Scalpel used to meticulously score fibrotic tissue on the largest RIGHT LE wounds. Skilled interventions: -Knowledge of tissue anatomy and wound care -Skilled judgment was provided after wound assessment in selection of appropriate interventions. -Skilled hands-on technique for active wound care/sharp debridement with appropriate instruments to debride/remove devitalized and/or necrotic tissue to promote wound healing. -Assessment of pain tolerance throughout the session -<20cm non-viable tissue removed Nonselective Debridement (47511): BILATERAL LEs and feet cleansed with warm soapy water and chlorhexidine. Mechanical debridement via guaze swiping to remove slough as able and exudative crusts. Post care, BILATERAL LE and feet moisturized with Vaseline and Zinc Oxide applied to naya-wound tissue. Skilled interventions: -Skilled knowledge of wound care and skilled application of knowledge for optimal wound healing environment and preventing/ minimizing adverse side effects. -Skilled education on rationale for dressing choice for reinforcement and improved compliance at home. -Skilled judgement and knowledge for optimization of wound care and skin integrity. -Skilled gentle cleansing and mechanical debridement to remove non-viable tissue on wounds, reduce bio-burden, and promote improved skin integrity. -Dressing management/ application: Alginate Ag to cover all wound beds + compression as below. Compression Therapy (Multilayer Venous Wound Compression System) (64035): Skilled interventions: -Skilled knowledge of wound care and skilled application of knowledge for optimal wound healing environment and preventing/ minimizing adverse side effects. -Skilled education on rationale for dressing choice for reinforcement and improved compliance at home. -Compression dressing Profore Lite (20-30mmHg) applied to Bilateral LE's with Unna layer proximally to secure/anchor the dressing and avoid migration with edema reduction. Modified application with dressing ankle to knee. Tubigrip applied to the foot BILATERALLY. Reinforced with patient to change foot compression daily and as needed for soiling. -Toes are warm and pink before and post boot application. -instructed that if the patient exhibits a change in color to the extremity, change in temperature, increased pain, or the dressing becomes wet (external soil or drainage strike-through), that the patient is to remove the dressing and call this PT. Patient voices understanding with intent to comply. Reinforced need for monitoring feet for more swelling and if modified dressing application causes more swelling, patient is to remove the dressings and cover dressings. Modalities: Noncontact Ultrasound MIST: 5 min to the LEFT posterior wound and 8 min to R LE wounds Skilled interventions: -Proper administration and selection of modality based on clinical presentation, deficits, and needs -Patient response monitored throughout treatment Post Treatment/Symptom(s): See above Adverse event? No Billing: Noncontact Ultrasound Mist (76840): no charge Selective Sharp Debridement <20cm (97905): 1 unit Nonselective debridement (93243): no charge Multi-Layer Venous Wound Compression System (25508): 1 unit (untimed) x 2 BILATERAL Total Time: 68 minutes Hu Barraza PT documented in this encounter [facility] 02-23-2022 Instructions Amena Leonard RN - 02/23/2022 2:15 PM EDT WOUND CARE INSTRUCTIONS- Shade Brambila Wound location: Bilateral lower legs Profore 3 layer compression wraps applied to both of your legs at today's visit (02/17/22). Please keep wraps dry. Should the wraps become too tight or get wet, please remove the wraps [id number] (avoid cutting the wraps in order to prevent accidentally cutting your skin) and perform the alternate dressing as stated below. Alternate Dressing: - Gather supplies - Place down a clean work surface such as new paper towel or newly cleaned towel - Clean all metal instruments with rubbing alcohol before and after each use. - Plastic garbage bag for old dressing - Wash your hands with soap and water before and after wound care. - Apply Vashe moistened gauze to wound base and allow to soak for 5-10 minutes, then use that guaze to wipe away any loose debris. - Moisturize intact skin with vaseline - Apply adaptic to the wound base, followed by Calcium Alginate Ag. - Cover with 4x4 gauze and conform gauze roll - Secure dressing with paper tape - Change your dressing daily and as needed to maintain a clean, dry, & intact dressing Apply betadine between toes for any moisture Wear single layer tubigrip to both lower legs, apply first thing in AM and you may remove at bedtime COMPRESSION Compression wrap must be removed if: it becomes wet or soiled If you have numbness or tingling in your foot or toes If you have increased pain If toes become cold or discolored - Avoid sitting with legs in a dependent position or standing for long periods of time. - Attempt to lay flat and elevate your legs above the level of your heart 2-3 times daily, for 30 minutes at a time. - Be sure to continue walking and/or calf pumps and exercises to mimic writing the alphabet with your foot, as instructed - Control your sodium intake as instructed by provider To give your wound the best chance to heal: - Eat three balanced meals daily focusing on the protein - Control your blood sugar. Keep blood sugar less than 200 - Complete your wound care instructions as ordered - Vitamin C 500 mg twice daily - Multiple Vitamin Daily - Drink a protein shake daily - Premiere Clear or Glucerna for Diabetic patients, Nepro for renal patients and premiere for non-renal and non-diabetic patients Report any of the following signs and symptoms of infection to the Wound Center at [phone] or go to the Emergency Department: Fever or chills Increased drainage Green or yellow drainage Foul odor Increased pain Hardness around the wound Redness, warmth or swelling of the surrounding tissue Color change to the wound PLAN/ORDERS: 1. Return to the wound center to see Dr Cici KENNEY in the wound center as scheduled 2. Continue with Hu weekly for Mist Therapy. Next appt: 02/26/22 at 8:30am 3. Continue aggressive nutritional support to assist wound healing 4. PRISM - Phone: Giovanni Bolanos DPM /mh/tr- nurse visit documented in this encounter [facility] 02-23-2022 History of Presen t illness Narrative Nursing Documentation- Nurse visit 02/23/22 Pertinent Medical History: DM2 Wound Etiology according to patient: wounds spontaneously opened up over last 2 months Patient arrived via: ambulatory with [employer]/Nursing Facility: N/A Consent captured for debridement per Dr Cici KENNEY and linda until June 2022 Anticoagulant Therapy: n/a ACTIVE CARE PER PROVIDER: WOUND # 2 right anterior mid lower leg Combined with #3 01-13-2022 WOUND # 3 right anterior distal lower leg Combined with #2 01-13-2022 WOUND ASSESSMENT: Refer to Provider's Wound Assessment Note VASCULAR ASSESSMENT BY PROVIDER: see provider wound assessment note CHF History: denies EDEMA: Right foot: 3+ Right calf: 2+ Left Calf: 2+ Left foot 1+ Other: NA MEASUREMENTS: In cm Right Calf: 38.5 cm Right Ankle: 21.0 cm Left Calf: 38.5 cm Left Ankle: 20.2 cm Length: 43.0cm - Not measured at today's visit WOUND PHOTOGRAPHY: NO DEBRIDEMENT PROCEDURE BY PROVIDER: Anesthetic Used: N/A Wound # All wounds Other procedure: mechanical washing of all wounds Specimen collected: n/a WOUND TREATMENT PER MD ORDER: Wounds cleansed by mechanical debridement to allow provider to visualize wound base WOUND # 1 right anterior proximal lower leg WOUND #4 right posterior proximal lower leg closed 01-13-2022 WOUND #5 LOCATION: right posterior mid lower leg Closed 01-13-2022 WOUND #6 LOCATION: right posterior distal lower leg Closed 01-13-2022 WOUND #7 Left anterior lower leg - closed 02/17/22 WOUND # 8 Left anterior lateral lower leg closed 01-13-2022 WOUND #13 Right Anterior Lateral steiner WOUND # 14_LOCATION: LLE anterior proximal cluster - closed 02/17/22 WOUND # 15 LOCATION: LLE Medial Anterior - closed 02/17/22 WOUND # 16_LOCATION: Left foot dorsum 1st met Head - closed 02/17/22 WOUND # 17 LOCATION: LLE Proximal lateral ankle - closed 02/17/22 WOUND # 9 Left lateral ankle L: cm x W: cm x D: cm- closed 02/23/22 Debridement by provider: N/A Post debridement measurements if applicable : L: cm x W:cm x D: cm WOUND #10 Left lateral ankle - posterior L: cm x W: cm x D: cm- closed 02/23/22 Debridement by provider: N/A Post debridement measurements if applicable : L: cm x W: cm x D: cm WOUND # 11 Left posterior leg - proximal L: cm x W: cm x D: cm- closed 02/23/22 Debridement by provider: N/A Post debridement measurements if applicable : L: cm x W: cm x D: cm WOUND #12 Left posterior leg - distal L: cm x W: cm x D: cm- closed 02/23/22 Debridement by provider: N/A Post debridement measurements if applicable : L: cm x W: cm x D: cm WOUND # _18_ LOCATION: Right Lateral Leg - superior (new 02/17/22) L: 1.5 cm x W: 0.3 cm x D: 0.1 cm Debridement by provider: N/A WOUND # _19__ LOCATION: Right Lateral Leg - Inferior (new 02/17/22) L: 3.2 cm x W: 2.2 cm x D: 0.1 cm Debridement by provider: N/A Post debridement measurements if applicable : L: cm x W: cm x D: cm WOUND # 20_ LOCATION: Right Anterior Lower Leg - Superior (new 02/17/22) L: 1.4 cm x W: 1.0 cm x D: 0.1 cm Debridement by provider: N/A Post debridement measurements if applicable : L: cm x W:cm x D: cm WOUND # __21_ LOCATION: Right Anterior Lower Leg - Mid (new 02/17/22) L: 0.7 cm x W: 0.7 cm x D: 0.1cm DEBRIDEMENT: N/A Post debridement measurements if applicable : L: cm x W: cm x D: cm WOUND # _22_LOCATION: Right Anterior leg (new 02/17/22) L: 6.0 cm x W: 2.0 cm x D: 0.1cm DEBRIDEMENT: N/A Post debridement measurements if applicable : L: cm x W: cm x D: cm Cleansed with: Vashe Applied to naya-wound skin: vaseline Applied to wound bed: adaptic, followed by calcium alginate Ag Covered and secured with: Profore 3 layer compression wraps to bilateral LE Other: betadine between toes COMPRESSION: Profore 3 layer compression wrap and stockinet SPECIAL NEEDS: Coordination of care N/A Emotional support N/A OR set-up N/A Yarn Examiner N/A Incontinence needs N/A DISCHARGED in stable condition to: Home ambulatory with cane Global surgical period dates if applicable: N/A PLAN/ORDERS: 1. Return to the wound center to see Dr Cici KENNEY in the wound center as scheduled 2. Continue with Hu weekly for Mist Therapy. Next appt: 02/26/22 at 8:30am 3. Continue aggressive nutritional support to assist wound healing 4. PRISM - Phone: EDUCATION: The patient/family was instructed how to cleanse the wound(s). Visual demonstration on how to apply the dressing with teach back method. Signs & symptoms of infection were reviewed: Increased redness, swelling, pain, green/yellow drainage, fever and/or chills would all need to be evaluated by a Physician. Patient received typed home-going wound care instructions and has expressed intent to comply. OTHER EDUCATION: Education performed regarding lymphedema/edema: Elevation of extremity above the heart for 30 minutes three times daily and as needed Exercise such as writing the ABC's with your toes in the air, walking and/or calf pumps Wearing compression as ordered by provider Diet controlling of sodium as instructed by provider Use of medication to help control edema. UNIVERSAL PROTOCOL / SAFETY CHECKLIST - NA Current HBOT Status: Active or Complete - see screening below WOUND CENTER HYPERBARIC OXYGEN THERAPY SCREENING 1. Is the patient diabetic? (If No, skip to question 5) Yes 2. Does the patient have a lower extremity wound? Yes 3. Is there exposed/involved tendon or bone? No 4. Has the wound been present for 30 days? Yes If Yes to ALL questions above, consult the Hyperbaric Center 5. Has the patient been diagnosed with osteomyelitis? No 6. Has the patient had a previous skin graft or flap at the wound? No 7. Has the patient had or been offered vascular intervention/evaluation? No 8. Does the patient have a wound at an amputation site? No 9. Has the patient had radiation therapy at the site of the problem? No If Yes to ANY of questions 5-9, consult the Hyperbaric Center Amena Leonard RN/tr documented in this encounter [facility] 02-11-2022 History of Presen t illness Narrative Episode Visit Count: 5 Medicare visits current year: 5 Therapist That Will Oversee The Plan Of Care: Hu Madi Start of Care Date: 01/16/22 Onset Date: 12/16/21 Plan of Care Certification Date: 01/16/22 Next Certification Due Date: 03/17/22 Patient Identified by Name and Date of : Yes [facility] PHYSICAL THERAPY WOUND TREATMENT AND PROGRESS REPORT PLAN OF CARE UPDATE: Patient continues to have multiple open wounds of BILATERAL LEs. Edema continues to be problematic and skin is tight, shiny and high risk of developing spontaneous blisters. Patient with fair tolerance to compression dressings. Wounds this date desiccated due to early removal of compression dressings and wounds being open to air. New areas noted which appear to be from trauma, but pt unaware of any issues. Continued wound care is warranted. Patient is actively working with Cardiology for cardiac work up and recent start of diuretics. Functional Gains: increased wound healing as evidenced by decreased wound sizes Goals for Episode of Care Updated: 02/11/2022 to be achieved by 03/17/22 Eliminate all nonviable tissue from wounds on BILATERAL LEs: Not met: some wounds closed but new areas noted. Achieve full closure of wounds on BILATERAL LEs: not met but wound sizes are reducing Eliminate wound exudate: not met, RIGHT LE anterior wound and a new medial wound with clear serous drainage. Most all other wounds desiccated this date. Decrease edema from 1 to 2 cm on widest calf for vascular decongestion and assist with wound closure: not formally re-measured this date as patient with early removal of compression dressings and legs have been open to air, no compression. LEs firm edematous with pitting proximally. Skin tight, shiny and fragile with anterior discoloration and scattered blisters. Eliminate pain associated with wounds: essentially met: Denies distinct wound pain--global ache of LEs that varies. PLAN: Follow up for one visit(s) per week for four weeks for, Selective debridement <20cm, Selective debridement >20cm, Nonselective debridement, Noncontact Ultrasound Mist, Compression Therapy (dressing), Patient/ Caregiver Education and Self Care/ Home Management SUBJECTIVE: Patient states she had to take her dressings off on Wednesday. Has had increased challenge with her eyes and has not been able to see well and was rushing to get to emergent eye appointment and got them wet in the shower. States not distinct wound pain, just that her entire leg aches at times. Patient rating of condition: better Pain Tool: Verbal (Numeric Rating or Visual Analog Scale) Pain Level: 0 Pain Location: Other: See Comment (denies wound pain, has global ache of B LEs) Description: Aching Duration: Intermittent Intervention/Comfort measure: Medication;Reposition;Relaxation ;Distractions;Education;Emotiona l Support/Reassurance;Exercise;Pos itioning;Other: See comment (compression and elevation, compliance with diuretics) Response To Pain Intervention: 0/10 in wounds PROMIS Scales T-scores: mean of general population = 50. 5 points is clinically meaningfully difference Percentiles provide an indication of how the patient's score ranks in relation to the general population. Higher percentile rankings indicate better function/quality of life. 50th percentile is the average of the general population and indicates half of respondents had a worse score. T-scores: mean of general population = 50. 5 points is clinically meaningfully difference Percentiles provide an indication of how the patient's score ranks in relation to the general population. Higher percentile rankings indicate better function/quality of life. 50th percentile is the average of the general population and indicates half of respondents had a worse score. OBJECTIVE MEASURES WITH LEVEL OF FUNCTION: Patient presents for follow-up wound care treatment. Patient presents with BILATERAL LEs open to air. Dry exudate noted on skin. Adherent debris on wounds (specifically fuzz and pet hairs). New abrasion/skin tear noted on posterior LEFT LE. New ruptured blister on medial RIGHT calf. Largest wound on RIGHT LE desiccated. WOUND STATUS: RIGHT LE WOUNDS 01/16/2022 ( l x w) 02/11/2022 mid steiner 1.7 cm l x 2 cm w Closed distal steiner 1.9 x 2.5 0.9 x 0.6 distal lateral lower leg 4 x 2.5 3.1 x 1.9 posterior heel 1.3 x 1.5 1 x 1 lateral foot 3 in a cluster--dry Closed medial/posterior cluster of ill-denied weeping closed but new medial ruptured blister: 0.8 x 0.4 LEFT LE WOUNDS 01/16/2022 (l x w) 02/11/2022 Dorsal foot 0.5 x 0.6 0.1 x 0.1, new areas more distally--pinpoint X 2 medial calf 0.8 x 0.7 closed Medial/anterior lower leg 2.5 x 2.3 closed proximal anterior 2.3 x 1 closed laterally Cluster of 7, largest 1.2 x 1 now only 3: 0.4 x 0.3 largest posterior 1 x 1.5 --- cluster of 2 0.7 x 1 largest, distal wound was closed but now re-opened and has skin tear extending distally TREATMENT: Conservative Sharp Debridement <20cm (30789): Jewelers forceps used to selectively remove necrotic tissue from the B LE wounds where indicated, emphasis on RIGHT largest wounds. Curette continued debridement efforts on the largest RIGHT LE wound due to adherent necrotic tissue and underlying dense fibrotic tissue. Skilled interventions: -Knowledge of tissue anatomy and wound care -Skilled judgment was provided after wound assessment in selection of appropriate interventions. -Skilled hands-on technique for active wound care/sharp debridement with appropriate instruments to debride/remove devitalized and/or necrotic tissue to promote wound healing. -Assessment of pain tolerance throughout the session -<20cm non-viable tissue removed Nonselective Debridement (34331): BILATERAL LEs and feet cleansed with warm soapy water and chlorhexidine. Mechanical debridement via guaze swiping to remove slough as able and exudative crusts. Post care, BILATERAL LE and feet moisturized with Vaseline and Zinc Oxide applied to naya-wound tissue. Skilled interventions: -Skilled knowledge of wound care and skilled application of knowledge for optimal wound healing environment and preventing/ minimizing adverse side effects. -Skilled education on rationale for dressing choice for reinforcement and improved compliance at home. -Skilled judgement and knowledge for optimization of wound care and skin integrity. -Skilled gentle cleansing and mechanical debridement to remove non-viable tissue on wounds, reduce bio-burden, and promote improved skin integrity. -Dressing management/ application: Alginate Ag to cover all wound beds + compression as below. Compression Therapy (Multilayer Venous Wound Compression System) (10286): Skilled interventions: -Skilled knowledge of wound care and skilled application of knowledge for optimal wound healing environment and preventing/ minimizing adverse side effects. -Skilled education on rationale for dressing choice for reinforcement and improved compliance at home. -Compression dressing Profore Lite (20-30mmHg) applied to Bilateral LE's with Unna layer proximally to secure/anchor the dressing and avoid migration with edema reduction. Modified application with dressing ankle to knee. Tubigrip applied to the foot BILATERALLY. Reinforced with patient to change foot compression daily and as needed for soiling. -Toes are warm and pink before and post boot application. -instructed that if the patient exhibits a change in color to the extremity, change in temperature, increased pain, or the dressing becomes wet (external soil or drainage strike-through), that the patient is to remove the dressing and call this PT. Patient voices understanding with intent to comply. Reinforced need for monitoring feet for more swelling and if modified dressing application causes more swelling, patient is to remove the dressings and cover dressings. Modalities: Noncontact Ultrasound MIST: 5 min to the LEFT posterior wound and 8 min to R LE wounds Skilled interventions: -Proper administration and selection of modality based on clinical presentation, deficits, and needs -Patient response monitored throughout treatment Post Treatment/Symptom(s): See above Adverse event? No Billing: Noncontact Ultrasound Mist ([id number]): no charge Selective Sharp Debridement <20cm (06242): 1 unit Nonselective debridement (46939): no charge Multi-Layer Venous Wound Compression System (94901): 1 unit (untimed) x 2 BILATERAL Total Time: 72 minutes Hu Barraza PT documented in this encounter [facility] 02-05-2022 History of Presen t illness Narrative Episode Visit Count: 4 Medicare visits current year: 4 Therapist That Will Oversee The Plan Of Care: Hu Barraza Start of Care Date: 01/16/22 Onset Date: 12/16/21 Plan of Care Certification Date: 01/16/22 Next Certification Due Date: 03/17/22 Patient Identified by Name and Date of : Yes [facility] PHYSICAL THERAPY WOUND TREATMENT NOTE ASSESSMENT: patient is experiencing good progress with her open wounds. Her LEFT LE continues to several small ulcerations, but they are smaller, silvia and with trace drainage. Her RIGHT LE only has 2 remaining areas that are also showing signs of improvement. The largest of all wounds is on her RIGHT lower leg and has a marbled fibrotic bed. Continued wound care is warranted as patient is making good progress. PLAN FOR NEXT VISIT: continue with active wound care, debridement as necessary to reduce nonviable tissue and promote healing SUBJECTIVE: patient went to see Cardio and is on 2 different meds, low dose diuretics (per pt). She doesn't feel like it is making much of a difference. States the compression dressings were ok, but driving her crazy a bit due to itching. Pain Tool: Verbal (Numeric Rating or Visual Analog Scale) Pain Level: 0 Pain Location: Other: See Comment (B LE wounds) Description: Sore Duration: Intermittent Intervention/Comfort measure: Medication;Reposition;Relaxation ;Distractions;Education;Emotiona l Support/Reassurance;Exercise;Pos itioning;Other: See comment (compression and elevation) Response To Pain Intervention: 0/10 OBJECTIVE: Patient presents for follow-up wound care treatment. BILATERAL modified compression dressings intact. No compression to her feet. No overt foot swelling noted. WOUND STATUS: LEFT LE: 7 remaining wounds. Largest 0.9 cm l x 1 cm w : Posteriorly in achilles tendon area RIGHT LE: 2 remaining wounds: Distal Anterior/lateral: 3.9 cm l x 2.5 cm w TREATMENT: Conservative Sharp Debridement <20cm (17449): scalpel used to selectively remove necrotic tissue from the B LE wounds where indicated, emphasis on RIGHT largest wounds. Skilled interventions: -Knowledge of tissue anatomy and wound care -Skilled judgment was provided after wound assessment in selection of appropriate interventions. -Skilled hands-on technique for active wound care/sharp debridement with appropriate instruments to debride/remove devitalized and/or necrotic tissue to promote wound healing. -Assessment of pain tolerance throughout the session -<20cm non-viable tissue removed Nonselective Debridement (93997): BILATERAL LEs and feet cleansed with warm soapy water and chlorhexidine. Mechanical debridement via guaze swiping to remove slough as able and exudative crusts. Post care, BILATERAL LE and feet moisturized with Vaseline and Zinc Oxide applied to naya-wound tissue. Skilled interventions: -Skilled knowledge of wound care and skilled application of knowledge for optimal wound healing environment and preventing/ minimizing adverse side effects. -Skilled education on rationale for dressing choice for reinforcement and improved compliance at home. -Skilled judgement and knowledge for optimization of wound care and skin integrity. -Skilled gentle cleansing and mechanical debridement to remove non-viable tissue on wounds, reduce bio-burden, and promote improved skin integrity. -Dressing management/ application: Alginate Ag to cover all wound beds + compression as below. Compression Therapy (Multilayer Venous Wound Compression System) (99876): Skilled interventions: -Skilled knowledge of wound care and skilled application of knowledge for optimal wound healing environment and preventing/ minimizing adverse side effects. -Skilled education on rationale for dressing choice for reinforcement and improved compliance at home. -Compression dressing Profore Lite (20-30mmHg) applied to Bilateral LE's with Unna layer proximally to secure/anchor the dressing and avoid migration with edema reduction. Modified application with dressing ankle to knee. Tubigrip applied to the foot BILATERALLY. Reinforced with patient to change foot compression daily and as needed for soiling. -Toes are warm and pink before and post boot application. -instructed that if the patient exhibits a change in color to the extremity, change in temperature, increased pain, or the dressing becomes wet (external soil or drainage strike-through), that the patient is to remove the dressing and call this PT. Patient voices understanding with intent to comply. Reinforced need for monitoring feet for more swelling and if modified dressing application causes more swelling, patient is to remove the dressings and cover dressings. Modalities: Noncontact Ultrasound MIST: 4 min to the LEFT posterior wound and 8 min to R LE wounds Skilled interventions: -Proper administration and selection of modality based on clinical presentation, deficits, and needs -Patient response monitored throughout treatment Post Treatment/Symptom(s): See above Adverse event? No Billing: Noncontact Ultrasound Mist ([id number]): no charge Selective Sharp Debridement <20cm (99619): 1 unit Nonselective debridement (82316): no charge Multi-Layer Venous Wound Compression System (66233): 1 unit (untimed) x 2 BILATERAL Total Time: 59 minutes Hu Barraza PT documented in this encounter [facility] 01-29-2022 History of Presen t illness Narrative January 29susanna is a 61-year-old female with past medical history significant for obesity, hypertension, diabetes mellitus type 2 with retinopathy who has been here for evaluation done because of having shortness of breath and worsening lower extremity edema.Patient denies having chest pain but reports over the last several weeks she has been more short of breath than before and her lower extremity edema is getting worse. She reports that she had some evaluation done and was found to have some venous insufficiency for which she is wrapping her legs for now.Patient had some records from [facility] that showed negative nuclear stress testing with Lexiscan that was done in 2016. She also had labs done in January 2022 that showed glucose 339, potassium 4.3, creatinine 0.7. Her hemoglobin A1c was 10.3. Her LDL in September 2021 was 102. She reports severe fluctuation of blood glucose is being 50 and above 300Her EKG today shows sinus rhythm with a rate of 73, incomplete right bundle branch block, LVH based on EKG criteriaJunatient denies having chest pain but reports having some shortness of breath with minimal activity. Her weight is up about 5 pounds since last visit last month. Her echocardiogram that was done in February 2023 showed normal ejection fraction with EF of 55 to 60% with impaired relaxation pattern and moderately dilated left atrium and mildly elevated RVSP. She is a scheduled for Cinema program next week.April 16atient denies having chest pain. Shortness of breath has improved significantly.She has lost about 23 pounds since last visit.Her sugar has not been well controlled and A1c remains to be above 10.Her last LDL in March 2022 was 118 on the Lipitor 20 mg daily.Her EKG today shows sinus rhythm with rate of 73 with evidence for LVH and poor R progression and no significant ST-T changes.Patient is interested to follow-up with a area field manager in [place] as her commute to year is too long for her.Her labs in March 2022 showed potassium 4.9, creatinine 0.95. [id number] Work Phone: 01-27-2022 History of Presen t illness Narrative Episode Visit Count: 3 Medicare visits current year: 3 Therapist That Will Oversee The Plan Of Care: Hu Barraza Start of Care Date: 01/16/22 Onset Date: 12/16/21 Plan of Care Certification Date: 01/16/22 Next Certification Due Date: 03/17/22 Patient Identified by Name and Date of : Yes [facility] PHYSICAL THERAPY WOUND TREATMENT NOTE ASSESSMENT: patient's BILATERAL LEs are improving. She continues to have multiple open area BILATERALLY, but the wound beds are waste cotton cleaner and reducing in size. Minimal edema reduction but anticipate progressive improvement with serial application of light compression dressings. Patient tolerates sessions well with minor pain during active debridement. Continued care is warranted to address the multiple wounds and promote healing. PLAN FOR NEXT VISIT: continue with active wound care, debridement and compression, US MIST to optimize healing. SUBJECTIVE: Patient denies any issues with the modified application of the compression dressing. Denies any significant wound pain. States she contacted PCP and she will note put pt on diuretics, has cardiology appointment later in February. Pain Tool: Verbal (Numeric Rating or Visual Analog Scale) Pain Level: 1 Pain Location: Other: See Comment (B LE wounds) Description: Sore Duration: Intermittent Intervention/Comfort measure: Medication;Reposition;Relaxation ;Distractions;Education;Emotiona l Support/Reassurance;Exercise;Pos itioning;Other: See comment (compression and elevation) Response To Pain Intervention: 0/10 OBJECTIVE: Patient presents for follow-up wound care treatment. BILATERAL modified compression dressings intact and in general good condition and position. WOUND STATUS: Wounds not re-measured. Multiple wounds remain on BILATERAL LEs but size reduction is noted. RIGHT LE with large wounds and now more epithelial tissue is noted, areas more distinctly. RIGHT posterior heel with peeling dry tissue. LEFT dorsal foot wound contracted and dry. TREATMENT: Conservative Sharp Debridement <20cm (88981): 3 mm curette used to selectively remove necrotic tissue from the B LE wounds where indicated, emphasis on RIGHT larger wounds. Skilled interventions: -Knowledge of tissue anatomy and wound care -Skilled judgment was provided after wound assessment in selection of appropriate interventions. -Skilled hands-on technique for active wound care/sharp debridement with appropriate instruments to debride/remove devitalized and/or necrotic tissue to promote wound healing. -Assessment of pain tolerance throughout the session -<20cm non-viable tissue removed Nonselective Debridement (99405): BILATERAL LEs and feet cleansed with warm soapy water and chlorhexidine. Mechanical debridement via guaze swiping to remove slough and exudative crusts. Post care, BILATERAL LE and feet moisturized with Vaseline and Zinc Oxide applied to naya-wound tissue. Skilled interventions: -Skilled knowledge of wound care and skilled application of knowledge for optimal wound healing environment and preventing/ minimizing adverse side effects. -Skilled education on rationale for dressing choice for reinforcement and improved compliance at home. -Skilled judgement and knowledge for optimization of wound care and skin integrity. -Skilled gentle cleansing and mechanical debridement to remove non-viable tissue on wounds, reduce bio-burden, and promote improved skin integrity. -Dressing management/ application: Alginate Ag to cover all wound beds + compression as below. Compression Therapy (Multilayer Venous Wound Compression System) (63191): Skilled interventions: -Skilled knowledge of wound care and skilled application of knowledge for optimal wound healing environment and preventing/ minimizing adverse side effects. -Skilled education on rationale for dressing choice for reinforcement and improved compliance at home. -Compression dressing Profore Lite (20-30mmHg) applied to Bilateral LE's with Unna layer proximally to secure/anchor the dressing and avoid migration with edema reduction. Modified application with dressing ankle to knee. Tubigrip applied to the foot BILATERALLY. Instructed patient to change foot compression daily and as needed for soiling. -Toes are warm and pink before and post boot application. -instructed that if the patient exhibits a change in color to the extremity, change in temperature, increased pain, or the dressing becomes wet (external soil or drainage strike-through), that the patient is to remove the dressing and call this PT. Patient voices understanding with intent to comply. Reinforced need for monitoring feet for more swelling and if modified dressing application causes more swelling, patient is to remove the dressings and cover dressings. Modalities: Noncontact Ultrasound MIST: 15 min to total between BILATERAL LEs Skilled interventions: -Proper administration and selection of modality based on clinical presentation, deficits, and needs -Patient response monitored throughout treatment Post Treatment/Symptom(s): No Adverse event? No Billing: Noncontact Ultrasound Mist ([id number]): no charge Selective Sharp Debridement <20cm (16607): 1 unit Nonselective debridement (75379): no charge Multi-Layer Venous Wound Compression System (13702): 1 unit (untimed) x 2 BILATERAL Total Time: 66 minutes Hu Barraza PT documented in this encounter [facility] 01-25-2022 History of Presen t illness Narrative Episode Visit Count: 2 Medicare visits current year: 2 Therapist That Will Oversee The Plan Of Care: Hu Barraza Start of Care Date: 01/16/22 Onset Date: 12/16/21 Plan of Care Certification Date: 01/16/22 Next Certification Due Date: 03/17/22 Patient Identified by Name and Date of : Yes [facility] PHYSICAL THERAPY WOUND TREATMENT NOTE ASSESSMENT: patient continues to have multiple open wounds on BILATERAL LEs and feet. Initial compression dressings applied with limited wear due to external soiling. Patent may benefit from follow up with PCP for medical management of edema as swelling extends into patients thighs. Majority of wounds this date with less necrotic tissue after debridement (successful debridement treatments). Modified application of compression dressing performed this date in hopes of extended wear. Continued wound care is warranted and necessary. PLAN FOR NEXT VISIT: assess for difficulties with modified application of compression dressing. Continue with active wound care, imperative continuation of compression SUBJECTIVE: Patient states she had to take the dressings off due to the bottoms getting wet when she was in a shower. She reports double bagging the dressings but water still got in. Pain Tool: Verbal (Numeric Rating or Visual Analog Scale) Pain Level: 1 Pain Location: Other: See Comment (B LE wounds) Description: Aching;Sore Duration: Intermittent Intervention/Comfort measure: Medication;Reposition;Relaxation ;Distractions;Education;Emotiona l Support/Reassurance;Exercise;Pos itioning;Other: See comment (compression and elevation) Response To Pain Intervention: 0/10 OBJECTIVE: Patient presents for follow-up wound care treatment. Patient presents with no dressings to her LEs. Edema noted of lower legs and thighs. Debris adherent to her open wounds. WOUND STATUS: Wounds not re-measured this date. Several wounds remain present on BILATERAL LEs. RIGHT largest wound with less eschar/necrotic tissue. TREATMENT: Conservative Sharp Debridement <20cm (39683): 3 mm curette used to selectively remove necrotic tissue from the B LE wounds as needed. Emphasis on the anterior/lateral larger wounds of the RIGHT LE and the posterior wounds of the LEFT LE. Skilled interventions: -Knowledge of tissue anatomy and wound care -Skilled judgment was provided after wound assessment in selection of appropriate interventions. -Skilled hands-on technique for active wound care/sharp debridement with appropriate instruments to debride/remove devitalized and/or necrotic tissue to promote wound healing. -Assessment of pain tolerance throughout the session -<20cm non-viable tissue removed Nonselective Debridement (14051): BILATERAL LEs and feet cleansed with warm soapy water and chlorhexidine. Mechanical debridement via guaze swiping to remove devitalized tissue and adherent debris. Post care, BILATERAL LE and feet moisturized with Vaseline and Zinc Oxide applied to naya-wound tissue. Skilled interventions: -Skilled knowledge of wound care and skilled application of knowledge for optimal wound healing environment and preventing/ minimizing adverse side effects. -Skilled education on rationale for dressing choice for reinforcement and improved compliance at home. -Skilled judgement and knowledge for optimization of wound care and skin integrity. -Skilled gentle cleansing and mechanical debridement to remove non-viable tissue on wounds, reduce bio-burden, and promote improved skin integrity. -Dressing management/ application: Alginate Ag to cover all wound beds + compression as below. ABD pad applied over RIGHT anterior/lateral lower leg due to largest area of open wounds. Compression Therapy (Multilayer Venous Wound Compression System) (49713): Skilled interventions: -Skilled knowledge of wound care and skilled application of knowledge for optimal wound healing environment and preventing/ minimizing adverse side effects. -Skilled education on rationale for dressing choice for reinforcement and improved compliance at home. -Compression dressing Profore Lite (20-30mmHg) applied to Bilateral LE's with Unna layer proximally to secure/anchor the dressing and avoid migration with edema reduction. Modified application with dressing ankle to knee. Tubigrip applied to the foot BILATERALLY. Instructed patient to change foot compression daily and as needed for soiling. -Toes are warm and pink before and post boot application. -instructed that if the patient exhibits a change in color to the extremity, change in temperature, increased pain, or the dressing becomes wet (external soil or drainage strike-through), that the patient is to remove the dressing and call this PT. Patient voices understanding with intent to comply. Reinforced need for monitoring feet for more swelling and if modified dressing application causes more swelling, patient is to remove the dressings and cover dressings. Modalities: Noncontact Ultrasound MIST: 15 min to total to largest wounds of BILATERAL LEs. Skilled interventions: -Proper administration and selection of modality based on clinical presentation, deficits, and needs -Patient response monitored throughout treatment Post Treatment/Symptom(s): See above Adverse event? No Billing: Noncontact Ultrasound Mist ([id number]): no charge Selective Sharp Debridement <20cm (46444): 1 unit Nonselective debridement (72420): no charge Multi-Layer Venous Wound Compression System (69739): 1 unit (untimed) x 2 BILATERAL Total Time: 66 minutes Hu Barraza PT documented in this encounter [facility] 01-14-2022 History of Presen t illness Narrative Images from the original note were not included. Problem list reviewed. CHIEF COMPLAINT: BL LE lateral leg wound and DM foot care DM II A1c 10.3 DLS 10/28/2021 HISTORY OF PRESENT ILLNESS: Patient presents today for BL LE wounds, sent RX to start MIST but has not started yet. She previously has been seen in office for routine nails. Last nail visit had 7 wounds, here today for work up at [facility] and get set up with MIST. previously sent cipro and sent RX for cicade wraps but is worsening and has worsening woudns and rednees referred by Dr. 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 got wounds from rubbing CURRENT MEDICATIONS: Doxycycline Hyclate Oral Capsule 100 MG(11/28/2021) Take 1 capsule twice a day for 7 day(s) HumuLIN R U-500 KwikPen Subcutaneous Solution Pen-injector 500 UNIT/ML(09/29/2021) INJECT 90 UNITS SUBCUTANEOUSLY AT BREAKFAST TIME, 40 UNTIS AT LUNCH, AND 90 UNITS AT SUPPER Ciprofloxacin HCl Oral Tablet 500 MG(11/28/2021) Take 1 tablet twice a day for 7 day(s) BD Pen Needle Short U/F Miscellaneous 31G X 8 MM(05/14/2021) metFORMIN HCl Oral Tablet 1000 MG(05/10/2021) ALLERGIES: Band-Aid [place] Surg Dressing Other Bandaging Tape Other PAST MEDICAL HISTORY: Podiatry History remarkable for Foot Numbness, Fungal Nails, Leg or Foot Ulcers. The patient has a past medical history of Arthritis, Depression, DM-Medication Dependent, Poor Circulation. Neuropathy High Cholesterol SURGICAL HISTORY: Hand Tonsils HOSPITALIZATIONS: None Noted SOCIAL HISTORY: Smoking Status: Never smoker; Last Reviewed: 11/28/2021 Alcohol use: social drinker No drug use Social History Reviewed (01/16/2021 11:20:18 AM EST) FAMILY HISTORY: There is a family history of Denial of any knowledge of significant family history. Denial of any knowledge of significant family history Family History Reviewed (01/16/2021 11:20:19 AM EST) REVIEW OF SYSTEMS: Psychologic: Admits to No psych symptoms. Review of systems otherwise negative PHYSICAL EXAMINATION: Vital Signs: Weight 235 lbs; Height 5 ft 8 in; BMI 35.7 01/08/2022 10:55 AM (EST) Temperature 98.6 F; Pulse Rate 100 bpm; Blood Pressure 120 / 80 mm/Hg Vascular Exam: BL Foot DP / PT pulses +2/4 CFT less than 3 seconds to digits, skin temp warm to warm from proximal to distal BL Foot Dermatologic Exam: All wounds 100 fibrotic and all post 80 percent left lower moderate serous drainage Left anterior medial .7x.5x..2cm and post .3cm Ulcer left anterior lateral ankle .8x.4x.1cm and pst .2cm Ulcer Left lateral ankle .6x1x.1cm and pst .2cm deep Ulcer Left posterior ankle .9x.5x.1cm and psot .2cm Ulcer Left posterior ankle proximal 1.5x.8x.2cm and pos t.3cm Ulcer left posterior distal 1x.8x.2cm and post .3cm to RIGHT posterior ankle ulcer proximal 1.5x.8x.2cm and post .3cm RT posterior ankle ulcer xzlprf9r.8x.25cm RT Posteroir middle ankle 2.5x.5x.1cm and post .2cm RT anterior lower leg distal 7x32x.1cm and post .2cm rt anterior lower leg middle ulcer .5x.5x.1cm and post .2cm dep RT anterior proximal lower leg ulcer 1x.4x.2cm and post .3cm Nails 1-5 Bilateral are thickened, elongated and discolored with subungual debris. The nails are greater than .3mm in thickness. There is pain with direct palpation of the nails and lateral compression of then nail. The discoloration is yellowish in color. Innerspaces 1-4bl are clean dry and intact. Skin texture and turgor are decreased. absent or decreased hair growth bilateral . nail changes bilateral Neurologic Exam: Comments/Other Findings: Vibratory sensations decreased BL at the MPJ, Protective sensations absent BL tested with 5.07 monofilament, and light, sharp, and temperature sensations intact bl. Muscle Testing of the Extensors, Flexors, Evertors (peroneals) , and Invertors ( posterior tibialis) BL leg shows 5/5 testing noted. Normal Babinski test noted bl foot after testing Orthopedic Exam: Additional Orthopedic Findings: Ortho Exam: Muscle Strength +5/5 as tested for all Invertors, Evertors, Flexors, and Extensors of the Lower Extremity b/l. Heel pain right posterior noted with mild edema second toe is red swollen but rectus no cerpitu s Ankle Joint demonstrated normal ROM and was pain free without crepitus. Subtalar Joint demonstrated normal ROM without pain or crepitus. Midtarsal Joint demonstrated normal ROM without pain or crepitus. 1st MPJ demonstrated normal ROM without pain or crepitus. Foot type is noted to be rectus. Negative pain noted with palpation to Achilles tendon, posterior calcaneus, plantar calcaneus, base of 5th metatarsal, calcaneal beak, lateral malleolus, medial malleolus, ATFL, CFL, PTFL. Negative Cotton test, Negative anterior Drawer test. DIAGNOSIS: Left foot pain Right foot pain Pain of toe of left foot Pain of toe of right foot Dermatophytosis of nail Type II diabetes mellitus with neurological manifestations Acquired equinus deformity of left foot Acquired equinus deformity of right foot Cellulitis of left lower leg Diabetic foot ulcer Calcaneal spur, left foot Lymphedema of both lower extremities Ulcer of left lower extremity, limited to breakdown of skin Ulcer of left heel and midfoot, limited to breakdown of skin PAD (peripheral artery disease) Contusion of left foot including toes, initial encounter Closed displaced fracture of lesser toe of left foot with routine healing Venous stasis ulcers of both lower extremities Non-pressure chronic ulcer of other part of right lower leg limited to breakdown of skin Non-pressure chronic ulcer of other part of left lower leg limited to breakdown of skin PVD (peripheral vascular disease) Venous stasis ulcer of left ankle with fat layer exposed without varicose veins PLAN AND TREATMENT: ASSESMENT & PLAN BL Foot and Ankle and Lower extremity Exam and Evaluation carried out with a treatment plan reviewed with the patient and findings discussed with patient including alternatives, benefits, complications and risks. PREVIOUS TESTS / IMAGING / X-RAY EXAM Xrays Taken AP MO LAT Left Foot Weightbearing , x-ray safety and precautions were reviewed with patient and a lead apron was applied to patient. no gas no air no lytic canges left heel and there is no fractures noted spurring noted heel plantar fracture second toe distal phalanx with no displacement NEW PVR RESULTS: RIGHT SIDEResting right ankle brachial index: 1.37Right toe brachial index: 0.70Normal ankle brachial index at rest in the right leg.Normal toe brachial index at rest in the right leg.Right ankle: Normal at rest. LEFT SIDEResting left ankle brachial index: 1.33Left toe brachial index: 0.83Normal ankle brachial index at rest in the left leg.Normal toe brachial index at rest in the left leg.Left ankle: Normal at rest. debrided Left posterior ankle wound with ulcer treated with sharp excisional debridement carried out of the wound with non selective sharp excisional debridement past the dermis into FASCIA and FAT level with use of curette and 15 scalpel blade. Devitalized tissue removed and we then flushed out the wound with wound wash sterile saline. Area numbed with lidocaine gel if sensate prior. debrided Left lower leg wound with Excisional debridement carried out of the wound with non selective sharp excisional debridement past the dermis into SUBCUTANEOUS level with use of curette and 15 scalpel bladed debriding non viable tissue out of wound. We then flushed out the wound with wound and put dressing on. debrided RT lower leg wounds with Excisional debridement carried out of the wound with non selective sharp excisional debridement past the dermis into SUBCUTANEOUS level with use of curette and 15 scalpel bladed debriding non viable tissue out of wound. We then flushed out the wound with wound and put dressing on. went over PVR and did not need vascular intervention, she needs to get A1c down, needs to get into mist and rx for mist therpay rx for alginate silver adaptic ,STRESSED the need for mist therpay I want adaptic fish clemons abd kerlix olegario and I want daily wound care back in in 4 weeks, I wanther in mist therdapy rx sent rx for cipro and rx fur culture taken darnell Number of Wounds: 7 Surgical or Debrided debrided Type of Wound: venous stais Amount of Drainage: heavy Thickness/Staging: partial Dressing Change Orders and Supplies: see above Left foot pain 729.5 M79.672 & Right foot pain 729.5 M79.671 & Pain of toe of left foot 729.5 M79.675 & Pain of toe of right foot 729.5 M79.674 & Dermatophytosis of nail 110.1 B35.1 & Type II diabetes mellitus with neurological manifestations 250.60 E11.49 & Acquired equinus deformity of left foot 736.72 M21.6X2 & Acquired equinus deformity of right foot 736.72 M21.6X1 & Cellulitis of left lower leg 682.6 L03.116 & Diabetic foot ulcer 250.80 E11.621 & Calcaneal spur, left foot 726.73 M77.32 & Lymphedema of both lower extremities 457.1 I89.0 & Ulcer of left lower extremity, limited to breakdown of skin 707.10 L97.921 & Ulcer of left heel and midfoot, limited to breakdown of skin 707.14 L97.421 & PAD (peripheral artery disease) 443.9 I73.9 & Contusion of left foot including toes, initial encounter 924.20 S90.32XA & Closed displaced fracture of lesser toe of left foot with routine healing V54.19 S92.502D & Venous stasis ulcers of both lower extremities 459.81 I83.019 & Non-pressure chronic ulcer of other part of right lower leg limited to breakdown of skin 707.19 L97.811 & Non-pressure chronic ulcer of other part of left lower leg limited to breakdown of skin 707.19 L97.821 & PVD (peripheral vascular disease) 443.9 I73.9 & Venous stasis ulcer of left ankle with fat layer exposed without varicose veins 459.81 I87.2 documented in this encounter [facility] 01-14-2022 Nurse Note JESSICA: Jessica has provided service for the patient with no further action required Nursing Documentation Pertinent Medical History: DM2 Wound Etiology according to patient: wounds spontaneously opened up over last 2 months Patient arrived via: ambulatory with [facility] Care Company/Nursing Facility: N/A Consent captured for debridement per Dr Cox until June 2022 Anticoagulant Therapy: n/a ACTIVE CARE PER PROVIDER: WOUND # 2 right anterior mid lower leg Combined with #3 01-13-2022 WOUND # 3 right anterior distal lower leg Combined with #2 01-13-2022 WOUND ASSESSMENT: Refer to Provider's Wound Assessment Note VASCULAR ASSESSMENT BY PROVIDER: see provider wound assessment note CHF History: denies EDEMA: Right foot: 1+ Right calf: 1+ Left Calf: 1+ Left foot 1+ Other: MEASUREMENTS: In cm Right Calf: 38.0 Right Ankle: 23.5 Left Calf: 36.8 Left Ankle: 22.0 Length:43 WOUND PHOTOGRAPHY: /NO DEBRIDEMENT PROCEDURE BY PROVIDER: Anesthetic Used: 2% lidocaine gel applied by Amena Davenport RN Wound # all Other procedure: mechanical washing of all wounds Specimen collected:n/a WOUND TREATMENT PER MD ORDER: Wounds cleansed by mechanical debridement to allow provider to visualize wound base WOUND # 1 right anterior proximal lower leg L: 2.0 cm x W: 2.0cm x D: 0.1 cm Debridement by provider:SQ WOUND # 13 LOCATION:( Right Anterior Lateral steiner combined wound # 2 and 3 01-13-2022) L:6.0 cm x W:6.0 cm x D: 0.2 cm DEBRIDEMENT:SubQ WOUND #4 right posterior proximal lower leg closed 01-13-2022 WOUND # 5 LOCATION: right posterior mid lower leg Closed 01-13-2022 WOUND #6 LOCATION: right posterior distal lower leg Closed 01-13-2022 WOUND #7 Left anterior lower leg L: 0.6 cm x W: 0.4cm x D: 0.2 cm Debridement by provider:SQ WOUND # 8 Left anterior lateral lower leg closed 01-13-2022 WOUND # 9 left lateral ankle L: 0.6 cm x W: 1.0 cm x D:0.1 Cm Debridement by provider:SQ WOUND #10 left lateral posterior ankle L: 0.7 cm x W: 0.3 cm x D: 0.2 cm Debridement by provider:SQ WOUND # 11 Left posterior proximal L: 1.5 cm x W: 2.0cm x D: 0.2 cm Debridement by provider: fascia WOUND #12 Left posterior distal L: 0.7 cm x W: 1.3 cm x D:0.2 cm Debridement by provider: fascia WOUND # ___14__ LOCATION: LLE anterior proximal cluster ( new 01-13-2022) L: 3.0 cm x W: 1.5 cm x D:0.1 cm DEBRIDEMENT:SubQ WOUND # __15___ LOCATION: LLE Medial Anterior ( new 01-13-2022) L:2.5 cm x W: 2.3 cm x D:0.1 cm DEBRIDEMENT:SubQ WOUND # _16____ LOCATION: Left foot dorsum 1st met Head (new 01-13-2022) L:0.6 cm x W: 0.8 cm x D: 0.1 cm DEBRIDEMENT:SubQ WOUND # __17___ LOCATION: LLE Proximal lateral ankle (new 01-13-2022) L:1.0 cm x W: 1.0 cm x D: 0.1 cm DEBRIDEMENT:SubQ Cleansed with: Vashe Applied to naya-wound skin:vaseline Applied to wound bed: adaptic, followed by calcium alginate Ag Covered and secured with: 4x4's,ABD kerlix Other: betadine between toes COMPRESSION: single layer tubigrip size E SPECIAL NEEDS: Coordination of care [facility] for supplies Emotional support N/A OR set-up N/A Yarn Examiner N/A Incontinence needs N/A DISCHARGED in stable condition to: Home ambulatory with cane Global surgical period dates if applicable: N/A PLAN/ORDERS: Return to the wound center to see Dr Bolanos in the wound center in 4 weeks Obtain PVR'S/Venous incompetency as ordered Referral to [facility] Therapy Continue aggressive nutritional support to assist wound healing Dressings and/or compression stockings ordered through [facility] - Call if you have not heard from them in 2-3 days. Wound culture obtained 01-13-2022 EDUCATION: The patient/family was instructed how to cleanse the wound(s). Visual demonstration on how to apply the dressing with teach back method. Signs & symptoms of infection were reviewed: Increased redness, swelling, pain, green/yellow drainage, fever and/or chills would all need to be evaluated by a Physician. Patient received typed home-going wound care instructions and has expressed intent to comply. OTHER EDUCATION: New patient education. Reviewed [facility] and and ordered PVR's, venous incompetencey Education performed regarding lymphedema/edema: Elevation of extremity above the heart for 30 minutes three times daily and as needed Exercise such as writing the ABC's with your toes in the air, walking and/or calf pumps Wearing compression as ordered by provider Diet controlling of sodium as instructed by provider Use of medication to help control edema. UNIVERSAL PROTOCOL / SAFETY CHECKLIST Procedure to be Performed: Sign In:0901 A Moment of CARE was completed. Personnel directly involved with the procedure wore the appropriate PPE (Personal Protective Equipment). Patient/Surrogate Stated/Verified: PATIENT VERIFIED(optional for EMERGENT procedures): Patient name, Date of , Relevant allergies and The intended procedure Time Out Communication: 0901 Intended patient and procedure match the source documents. Consent documented and matches the intended procedure. Relevant labs, photos, and/or imaging studies have been reviewed. Medications required for procedure verified. Sign Out:0917 SIGN OUT (optional for EMERGENT procedures): All instruments, equipment, possible retained foreign bodies accounted for. Current HBOT Status: Active or Complete - see screening below WOUND CENTER HYPERBARIC OXYGEN THERAPY SCREENING 1. Is the patient diabetic? (If No, skip to question 5) Yes 2. Does the patient have a lower extremity wound? Yes 3. Is there exposed/involved tendon or bone? No 4. Has the wound been present for 30 days? Yes If Yes to ALL questions above, consult the [facility] 5. Has the patient been diagnosed with osteomyelitis? No 6. Has the patient had a previous skin graft or flap at the wound? No 7. Has the patient had or been offered vascular intervention/evaluation? No 8. Does the patient have a wound at an amputation site? No 9. Has the patient had radiation therapy at the site of the problem? No If Yes to ANY of questions 5-9, [facility] Rosemary Doll RN /MARTHA documented in this encounter [facility] 01-13-2022 Instructions Rosemary Doll RN - 01/13/2022 8:47 AM EDT WOUND CARE INSTRUCTIONS- Shade Brambila Wound location: Bilateral lower legs - Gather supplies - Place down a clean work surface such as new paper towel or newly cleaned towel - Clean all metal instruments with rubbing alcohol before and after each use. - Plastic garbage bag for old dressing - Wash your hands with soap and water before and after wound care. - Apply Vashe moistened gauze to wound base and allow to soak for 5-10 minutes, then use that guaze to wipe away any loose debris - Moisturize intact skin with vaseline - Apply adaptic to the wound base, followed by calcium alginate Ag. - Cover with 4x4's and conformr - Secure dressing with paper tape - Change your dressing daily and as needed to maintain clean, dry dressing Apply betadine between toes for any moisture Wear single layer tubigrip to both lower legs, apply first thing in AM and you may remove at bedtime COMPRESSION Compression wrap must be removed if: it becomes wet or soiled If you have numbness or tingling in your foot or toes If you have increased pain If toes become cold or discolored - Avoid sitting with legs in a dependent position or standing for long periods of time. - Attempt to lay flat and elevate your legs above the level of your heart 2-3 times daily, for 30 minutes at a time. - Be sure to continue walking and/or calf pumps and exercises to mimic writing the alphabet with your foot, as instructed - Control your sodium intake as instructed by provider To give your wound the best chance to heal: - Eat three balanced meals daily focusing on the protein - Control your blood sugar. Keep blood sugar less than 200 - Complete your wound care instructions as ordered - Vitamin C 500 mg twice daily - Multiple Vitamin Daily - Drink a protein shake daily - Premiere Clear or Glucerna for Diabetic patients, Nepro for renal patients and premiere for non-renal and non-diabetic patients Graft:(if applicable) It can be normal to have some odor coming from your wound if you've had a graft application. This can be normal due to using an occlusive dressing. If you have an odor plus signs and symptoms of infection(as listed below), Please call the wound center for further instruction. Report any of the following signs and symptoms of infection to the Wound Center at [phone] or go to the Emergency Department: Fever or chills Increased drainage Green or yellow drainage Foul odor Increased pain Hardness around the wound Redness, warmth or swelling of the surrounding tissue Color change to the wound PLAN/ORDERS: Return to the wound center to see Dr Bolanos in the wound center in 4 weeks Referral to [facility]- Hu will contact you after insurance verification see if able to get into sooner Continue aggressive nutritional support to assist wound healing Rx for Cipro sent to your pharmacy Dressings and/or compression stockings ordered through [facility] - Call if you have not heard from them in 2-3 days. Wound culture obtained 01-13-2022 Please be aware that the Covid19 exposure questions will be asked as you enter the hospital and as you arrive to each area. Thank you for your patience and understanding as we attempt to protect our patients during this difficult time. Giovanni Bolanos DPM /valentino/MH documented in this encounter [facility] 12-17-2021 History of Presen t illness Narrative Images from the original note were not included. Problem list reviewed. CHIEF COMPLAINT: BL LE lateral leg wound and DM foot care DM II A1c 13 DLS 10/28/2021 HISTORY OF PRESENT ILLNESS: Patient presents today for BL LE wounds, previously has been seen in office for routine nails. Last nail visit had 7 wounds, here today for work up at [facility] and get set up with [facility]. previously sent cipro and sent RX for cicade wraps but is worsening and has worsening woudns and rednees referred by Dr. 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 got wounds from rubbing CURRENT MEDICATIONS: Doxycycline Hyclate Oral Capsule 100 MG(11/28/2021) Take 1 capsule twice a day for 7 day(s) HumuLIN R U-500 KwikPen Subcutaneous Solution Pen-injector 500 UNIT/ML(09/29/2021) INJECT 90 UNITS SUBCUTANEOUSLY AT BREAKFAST TIME, 40 UNTIS AT LUNCH, AND 90 UNITS AT SUPPER Ciprofloxacin HCl Oral Tablet 500 MG(11/28/2021) Take 1 tablet twice a day for 7 day(s) BD Pen Needle Short U/F Miscellaneous 31G X 8 MM(05/14/2021) metFORMIN HCl Oral Tablet 1000 MG(05/10/2021) ALLERGIES: Band-Aid [place] Surg Dressing Other Bandaging Tape Other PAST MEDICAL HISTORY: Podiatry History remarkable for Foot Numbness, Fungal Nails, Leg or Foot Ulcers. The patient has a past medical history of Arthritis, Depression, DM-Medication Dependent, Poor Circulation. Neuropathy High Cholesterol SURGICAL HISTORY: Hand Tonsils HOSPITALIZATIONS: None Noted SOCIAL HISTORY: Smoking Status: Never smoker; Last Reviewed: 11/28/2021 Alcohol use: social drinker No drug use Social History Reviewed (01/16/2021 11:20:18 AM EST) FAMILY HISTORY: There is a family history of Denial of any knowledge of significant family history. Denial of any knowledge of significant family history Family History Reviewed (01/16/2021 11:20:19 AM EST) REVIEW OF SYSTEMS: Psychologic: Admits to No psych symptoms. Review of systems otherwise negative PHYSICAL EXAMINATION: Vital Signs: Weight 235 lbs; Height 5 ft 8 in; BMI 35.7 12/11/2021 9:38 AM (EST) Temperature 98.6 F; Pulse Rate 100 bpm; Blood Pressure 120 / 80 mm/Hg Vascular Exam: BL Foot DP / PT pulses +2/4 CFT less than 3 seconds to digits, skin temp warm to warm from proximal to distal BL Foot Dermatologic Exam: All wounds 100 fibrotic and all post 80 percent left lower moderate serous drainage Left anterior medial .7x.5x..2cm and post .3cm Ulcer left anterior lateral ankle .8x.4x.1cm and pst .2cm Ulcer Left lateral ankle .6x1x.1cm and pst .2cm deep Ulcer Left posterior ankle .9x.5x.1cm and psot .2cm Ulcer Left posterior ankle proximal 1.5x.8x.2cm and pos t.3cm Ulcer left posterior distal 1x.8x.2cm and post .3cm to RIGHT posterior ankle ulcer proximal 1.5x.8x.2cm and post .3cm RT posterior ankle ulcer zoykpb9c.8x.25cm RT Posteroir middle ankle 2.5x.5x.1cm and post .2cm RT anterior lower leg distal 7x32x.1cm and post .2cm rt anterior lower leg middle ulcer .5x.5x.1cm and post .2cm dep RT anterior proximal lower leg ulcer 1x.4x.2cm and post .3cm Nails 1-5 Bilateral are thickened, elongated and discolored with subungual debris. The nails are greater than .3mm in thickness. There is pain with direct palpation of the nails and lateral compression of then nail. The discoloration is yellowish in color. Innerspaces 1-4bl are clean dry and intact. Skin texture and turgor are decreased. absent or decreased hair growth bilateral . nail changes bilateral Neurologic Exam: Comments/Other Findings: Vibratory sensations decreased BL at the MPJ, Protective sensations absent BL tested with 5.07 monofilament, and light, sharp, and temperature sensations intact bl. Muscle Testing of the Extensors, Flexors, Evertors (peroneals) , and Invertors ( posterior tibialis) BL leg shows 5/5 testing noted. Normal Babinski test noted bl foot after testing Orthopedic Exam: Additional Orthopedic Findings: Ortho Exam: Muscle Strength +5/5 as tested for all Invertors, Evertors, Flexors, and Extensors of the Lower Extremity b/l. Heel pain right posterior noted with mild edema second toe is red swollen but rectus no cerpitu s Ankle Joint demonstrated normal ROM and was pain free without crepitus. Subtalar Joint demonstrated normal ROM without pain or crepitus. Midtarsal Joint demonstrated normal ROM without pain or crepitus. 1st MPJ demonstrated normal ROM without pain or crepitus. Foot type is noted to be rectus. Negative pain noted with palpation to Achilles tendon, posterior calcaneus, plantar calcaneus, base of 5th metatarsal, calcaneal beak, lateral malleolus, medial malleolus, ATFL, CFL, PTFL. Negative Cotton test, Negative anterior Drawer test. DIAGNOSIS: Left foot pain Right foot pain Pain of toe of left foot Pain of toe of right foot Dermatophytosis of nail Type II diabetes mellitus with neurological manifestations Acquired equinus deformity of left foot Acquired equinus deformity of right foot Cellulitis of left lower leg Diabetic foot ulcer Calcaneal spur, left foot Lymphedema of both lower extremities Ulcer of left lower extremity, limited to breakdown of skin Ulcer of left heel and midfoot, limited to breakdown of skin PAD (peripheral artery disease) Contusion of left foot including toes, initial encounter Closed displaced fracture of lesser toe of left foot with routine healing Venous stasis ulcers of both lower extremities Non-pressure chronic ulcer of other part of right lower leg limited to breakdown of skin Non-pressure chronic ulcer of other part of left lower leg limited to breakdown of skin PVD (peripheral vascular disease) Venous stasis ulcer of left ankle with fat layer exposed without varicose veins PLAN AND TREATMENT: ASSESMENT & PLAN BL Foot and Ankle and Lower extremity Exam and Evaluation carried out with a treatment plan reviewed with the patient and findings discussed with patient including alternatives, benefits, complications and risks. PREVIOUS TESTS / IMAGING / X-RAY EXAM Xrays Taken AP MO LAT Left Foot Weightbearing , x-ray safety and precautions were reviewed with patient and a lead apron was applied to patient. no gas no air no lytic canges left heel and there is no fractures noted spurring noted heel plantar fracture second toe distal phalanx with no displacement Rx for PVR Rx for [facility] therapy debrided Left posterior ankle wound with ulcer treated with sharp excisional debridement carried out of the wound with non selective sharp excisional debridement past the dermis into FASCIA and FAT level with use of curette and 15 scalpel blade. Devitalized tissue removed and we then flushed out the wound with wound wash sterile saline. Area numbed with lidocaine gel if sensate prior. debrided Left lower leg wound with Excisional debridement carried out of the wound with non selective sharp excisional debridement past the dermis into SUBCUTANEOUS level with use of curette and 15 scalpel bladed debriding non viable tissue out of wound. We then flushed out the wound with wound and put dressing on. debrided RT lower leg wounds with Excisional debridement carried out of the wound with non selective sharp excisional debridement past the dermis into SUBCUTANEOUS level with use of curette and 15 scalpel bladed debriding non viable tissue out of wound. We then flushed out the wound with wound and put dressing on. rx for mist therpay rx for alginate silver adaptic , rx for PVR I want adaptic algainte gazue abd kerlix olegario and I want daily wound care back in in 4 weeks, I wanther in [facility] therdapy rx sent Number of Wounds: 7 Surgical or Debrided debrided Type of Wound: venous stais Amount of Drainage: heavy Thickness/Staging: partial Dressing Change Orders and Supplies: see above Left foot pain 729.5 M79.672 & Right foot pain 729.5 M79.671 & Pain of toe of left foot 729.5 M79.675 & Pain of toe of right foot 729.5 M79.674 & Dermatophytosis of nail 110.1 B35.1 & Type II diabetes mellitus with neurological manifestations 250.60 E11.49 & Acquired equinus deformity of left foot 736.72 M21.6X2 & Acquired equinus deformity of right foot 736.72 M21.6X1 & Cellulitis of left lower leg 682.6 L03.116 & Diabetic foot ulcer 250.80 E11.621 & Calcaneal spur, left foot 726.73 M77.32 & Lymphedema of both lower extremities 457.1 I89.0 & Ulcer of left lower extremity, limited to breakdown of skin 707.10 L97.921 & Ulcer of left heel and midfoot, limited to breakdown of skin 707.14 L97.421 & PAD (peripheral artery disease) 443.9 I73.9 & Contusion of left foot including toes, initial encounter 924.20 S90.32XA & Closed displaced fracture of lesser toe of left foot with routine healing V54.19 S92.502D & Venous stasis ulcers of both lower extremities 459.81 I83.019 & Non-pressure chronic ulcer of other part of right lower leg limited to breakdown of skin 707.19 L97.811 & Non-pressure chronic ulcer of other part of left lower leg limited to breakdown of skin 707.19 L97.821 & PVD (peripheral vascular disease) 443.9 I73.9 & Venous stasis ulcer of left ankle with fat layer exposed without varicose veins 459.81 I87.2 documented in this encounter [facility] 12-16-2021 Instructions Stacy Manuel RN - 12/16/2021 9:15 AM EDT WOUND CARE INSTRUCTIONS- Shade Brambila Wound location: Bilateral lower legs - Gather supplies - Place down a clean work surface such as new paper towel or newly cleaned towel - Clean all metal instruments with rubbing alcohol before and after each use. - Plastic garbage bag for old dressing - Wash your hands with soap and water before and after wound care. - Apply Vashe moistened gauze to wound base and allow to soak for 5-10 minutes, then use that guaze to wipe away any loose debris - Moisturize intact skin with vaseline - Apply adaptic to the wound base, followed by calcium alginate Ag. - Cover with 4x4's and conformr - Secure dressing with paper tape - Change your dressing daily and as needed to maintain clean, dry dressing Apply betadine between toes for any moisture Wear single layer tubigrip to both lower legs, apply first thing in AM and you may remove at bedtime COMPRESSION Compression wrap must be removed if: it becomes wet or soiled If you have numbness or tingling in your foot or toes If you have increased pain If toes become cold or discolored - Avoid sitting with legs in a dependent position or standing for long periods of time. - Attempt to lay flat and elevate your legs above the level of your heart 2-3 times daily, for 30 minutes at a time. - Be sure to continue walking and/or calf pumps and exercises to mimic writing the alphabet with your foot, as instructed - Control your sodium intake as instructed by provider To give your wound the best chance to heal: - Eat three balanced meals daily focusing on the protein - Control your blood sugar. Keep blood sugar less than 200 - Complete your wound care instructions as ordered - Vitamin C 500 mg twice daily - Multiple Vitamin Daily - Drink a protein shake daily - Premiere Clear or Glucerna for Diabetic patients, Nepro for renal patients and premiere for non-renal and non-diabetic patients Graft:(if applicable) It can be normal to have some odor coming from your wound if you've had a graft application. This can be normal due to using an occlusive dressing. If you have an odor plus signs and symptoms of infection(as listed below), Please call the wound center for further instruction. Report any of the following signs and symptoms of infection to the Wound Center at [phone] or go to the Emergency Department: Fever or chills Increased drainage Green or yellow drainage Foul odor Increased pain Hardness around the wound Redness, warmth or swelling of the surrounding tissue Color change to the wound PLAN/ORDERS: Return to the wound center to see Dr Bolanos in the wound center in 4 weeks Obtain PVR'S/Venous incompetency as ordered Referral to [facility]- Hu will contact you after insurance verification Continue aggressive nutritional support to assist wound healing Dressings and/or compression stockings ordered through [facility] - Call if you have not heard from them in 2-3 days. Please be aware that the Covid19 exposure questions will be asked as you enter the hospital and as you arrive to each area. Thank you for your patience and understanding as we attempt to protect our patients during this difficult time. Giovanni Bolanos DPM /juanita/yesica documented in this encounter [facility] 12-16-2021 Nurse Note Nursing Documentation Pertinent Medical History: DM2 Wound Etiology according to patient: wounds spontaneously opened up over last 2 months Patient arrived via: ambulatory with [facility]/Nursing Facility: N/A Consent captured for debridement per Dr Cox until June 2022 Anticoagulant Therapy: n/a ACTIVE CARE PER PROVIDER: WOUND ASSESSMENT: Refer to Provider's Wound Assessment Note VASCULAR ASSESSMENT BY PROVIDER: see provider wound assessment note CHF History: denies EDEMA: Right foot: nonpitting Right calf: nonpitting Left foot : nonpitting Left Calf: nonpitting Other: MEASUREMENTS: In cm Right Calf: 39.5 Right Ankle: 24 Left Calf: 37 Left Ankle: 23 Length:43 WOUND PHOTOGRAPHY: YES/NO DEBRIDEMENT PROCEDURE BY PROVIDER: Anesthetic Used: 2% lidocaine gel applied by Stacy Arguello RN Wound # all Other procedure: mechanical washing of all wounds Specimen collected:n/a WOUND TREATMENT PER MD ORDER: Wounds cleansed by mechanical debridement to allow provider to visualize wound base WOUND # 1 right anterior proximal lower leg L: 1.0 cm x W: 0.4 cm x D: 0.2 cm Debridement by provider:SQ WOUND # 2 right anterior mid lower leg L: 0.5 cm x W: 0.5 cm x D: 0.1 cm Debridement by provider:SQ WOUND # 3 right anterior distal lower leg L: 7.0 cm x W:3.0 cm x D: 0.2 cm Debridement by provider: SQ WOUND #4 right posterior proximal lower leg L: 1.5 cm x W: 0.8 cm x D: 0.2 cm Debridement by provider:SQ WOUND # 5 LOCATION: right posterior mid lower leg L: 2.5 cm x W: 0.5 cm x D: 0.1 cm Debridement by provider:EVELYN WOUND #6 LOCATION: right posterior distal lower leg L: 1.0 cm x W: 0.8 cm x D: 0.2 cm Debridement by provider:SQ WOUND #7 Left anterior lower leg L: 0.7 cm x W: 0.5cm x D: 0.2 cm Debridement by provider:SQ WOUND # 8 Left anterior lateral lower leg L: 0.8 cm x W: 0.4 cm x D: 0.2 cm Debridement by provider:SQ WOUND # 9 left lateral ankle L: 0.6 cm x W: 1.0 cm x D:0.2 Cm Debridement by provider:SQ WOUND #10 left lateral posterior ankle L: 0.9 cm x W: 0.5 cm x D: 0.2 cm Debridement by provider:SQ WOUND # 11 Left posterior proximal L: 1.5 cm x W: 0.8 cm x D: 0.2 cm Debridement by provider: fascia WOUND #12 Left posterior distal L: 1.0 cm x W: 0.8 cm x D:0.2 cm Debridement by provider: fascia Cleansed with: Vashe Applied to naya-wound skin:vaseline Applied to wound bed: adaptic, followed by calcium alginate Ag Covered and secured with: 4x4's, kerlix Other: betadine between toes COMPRESSION: single layer tubigrip size E SPECIAL NEEDS: Coordination of care [facility] for supplies Emotional support N/A OR set-up N/A Yarn Examiner N/A Incontinence needs N/A DISCHARGED in stable condition to: Home ambulatory with cane Global surgical period dates if applicable: N/A PLAN/ORDERS: Return to the wound center to see Dr Bolanos in the wound center in 4 weeks Obtain PVR'S/Venous incompetency as ordered Referral to [facility] Continue aggressive nutritional support to assist wound healing Dressings and/or compression stockings ordered through [facility] - Call if you have not heard from them in 2-3 days. EDUCATION: The patient/family was instructed how to cleanse the wound(s). Visual demonstration on how to apply the dressing with teach back method. Signs & symptoms of infection were reviewed: Increased redness, swelling, pain, green/yellow drainage, fever and/or chills would all need to be evaluated by a Physician. Patient received typed home-going wound care instructions and has expressed intent to comply. OTHER EDUCATION: New patient education. Reviewed [facility] and and ordered PVR's, venous incompetencey Education performed regarding lymphedema/edema: Elevation of extremity above the heart for 30 minutes three times daily and as needed Exercise such as writing the ABC's with your toes in the air, walking and/or calf pumps Wearing compression as ordered by provider Diet controlling of sodium as instructed by provider Use of medication to help control edema. UNIVERSAL PROTOCOL / SAFETY CHECKLIST Procedure to be Performed: Sign In: 5804 A Moment of CARE was completed. Personnel directly involved with the procedure wore the appropriate PPE (Personal Protective Equipment). Patient/Surrogate Stated/Verified: PATIENT VERIFIED(optional for EMERGENT procedures): Patient name, Date of , Relevant allergies and The intended procedure Time Out Communication: 6841 Intended patient and procedure match the source documents. Consent documented and matches the intended procedure. Relevant labs, photos, and/or imaging studies have been reviewed. Medications required for procedure verified. Sign Out: 5172 SIGN OUT (optional for EMERGENT procedures): All instruments, equipment, possible retained foreign bodies accounted for. Current HBOT Status: Active or Complete - see screening below WOUND CENTER HYPERBARIC OXYGEN THERAPY SCREENING 1. Is the patient diabetic? (If No, skip to question 5) Yes 2. Does the patient have a lower extremity wound? Yes 3. Is there exposed/involved tendon or bone? No 4. Has the wound been present for 30 days? Yes If Yes to ALL questions above, consult the [facility] 5. Has the patient been diagnosed with osteomyelitis? No 6. Has the patient had a previous skin graft or flap at the wound? No 7. Has the patient had or been offered vascular intervention/evaluation? No 8. Does the patient have a wound at an amputation site? No 9. Has the patient had radiation therapy at the site of the problem? No If Yes to ANY of questions 5-9, [facility] Stacy Manuel RN / yesica documented in this encounter [facility] 12-12-2021 History of Presen t illness Narrative Patient is a 61-year-old female with past medical history significant for obesity, hypertension, diabetes mellitus type 2 with retinopathy who has been here for evaluation done because of having shortness of breath and worsening lower extremity edema.Patient denies having chest pain but reports over the last several weeks she has been more short of breath than before and her lower extremity edema is getting worse. She reports that she had some evaluation done and was found to have some venous insufficiency for which she is wrapping her legs for now.Patient had some records from [facility] that showed negative nuclear stress testing with Lexiscan that was done in 2016. She also had labs done in January 2022 that showed glucose 339, potassium 4.3, creatinine 0.7. Her hemoglobin A1c was 10.3. Her LDL in September 2021 was 102. She reports severe fluctuation of blood glucose is being 50 and above 300Her EKG today shows sinus rhythm with a rate of 73, incomplete right bundle branch block, LVH based on EKG criteria [id number] Work Phone: 09-29-2021 History of Past i llness Narrative Problem Noted Date Resolved Date Obesity, Class II, BMI 35-39.9 09/29/2021 0 09/23/2022 Obesity, Class I, BMI 30-34.9 02/10/2021 Hyperglycemia 02/04/2021 02/10/2021 Hyponatremia 02/04/2021 02/04/2021 Lightheadedness 02/04/2021 02/04/2021 Malaise and fatigue 02/04/2021 02/04/2021 Diabetic ulcer of posterior right heel 0 08/12/2020 Obesity, Class II, BMI 35-39.9 02/05/2020 0 02/10/2021 Chest pain 04/01/2017 03/10/2019 Insulin long-term use 08/09/2012 12/12/2018 documented as of this encounter (statuses as of 09/23/2022) [facility] History of Past illness Narrative* Problem Noted Date Resolved Date Obesity, Class II, BMI 35-39.9 09/29/2021 0 09/23/2022 Obesity, Class I, BMI 30-34.9 02/10/2021 Hyperglycemia 02/04/2021 02/10/2021 Hyponatremia 02/04/2021 02/04/2021 Lightheadedness 02/04/2021 02/04/2021 Malaise and fatigue 02/04/2021 02/04/2021 Diabetic ulcer of posterior right heel 0 08/12/2020 Obesity, Class II, BMI 35-39.9 02/05/2020 0 02/10/2021 Chest pain 04/01/2017 03/10/2019 Insulin long-term use 08/09/2012 12/12/2018 documented as of this encounter (statuses as of 09/25/2022) [facility] History of Past illness Narrative* Problem Noted Date Resolved Date Obesity, Class II, BMI 35-39.9 09/29/2021 0 09/23/2022 Obesity, Class I, BMI 30-34.9 02/10/2021 Hyperglycemia 02/04/2021 02/10/2021 Hyponatremia 02/04/2021 02/04/2021 Lightheadedness 02/04/2021 02/04/2021 Malaise and fatigue 02/04/2021 02/04/2021 Diabetic ulcer of posterior right heel 0 08/12/2020 Obesity, Class II, BMI 35-39.9 02/05/2020 0 02/10/2021 Chest pain 04/01/2017 03/10/2019 Insulin long-term use 08/09/2012 12/12/2018 documented as of this encounter (statuses as of 09/26/2022) [address]24-2022 History of Past illness Narrative* Problem Noted Date Resolved Date Obesity, Class II, BMI 35-39.9 09/29/2021 0 09/23/2022 Obesity, Class I, BMI 30-34.9 02/10/2021 Hyperglycemia 02/04/2021 02/10/2021 Hyponatremia 02/04/2021 02/04/2021 Lightheadedness 02/04/2021 02/04/2021 Malaise and fatigue 02/04/2021 02/04/2021 Diabetic ulcer of posterior right heel 0 08/12/2020 Obesity, Class II, BMI 35-39.9 02/05/2020 0 02/10/2021 Chest pain 04/01/2017 03/10/2019 Insulin long-term use 08/09/2012 12/12/2018 documented as of this encounter (statuses as of 10/19/2022) [facility] History of Past illness Narrative* Problem Noted Date Resolved Date Obesity, Class II, BMI 35-39.9 09/29/2021 0 09/23/2022 Obesity, Class I, BMI 30-34.9 02/10/2021 Hyperglycemia 02/04/2021 02/10/2021 Hyponatremia 02/04/2021 02/04/2021 Lightheadedness 02/04/2021 02/04/2021 Malaise and fatigue 02/04/2021 02/04/2021 Diabetic ulcer of posterior right heel 0 08/12/2020 Obesity, Class II, BMI 35-39.9 02/05/2020 0 02/10/2021 Chest pain 04/01/2017 03/10/2019 Insulin long-term use 08/09/2012 12/12/2018 documented as of this encounter (statuses as of 10/23/2022) [facility] History of Past illness Narrative* Problem Noted Date Resolved Date Obesity, Class II, BMI 35-39.9 09/29/2021 0 09/23/2022 Obesity, Class I, BMI 30-34.9 02/10/2021 Hyperglycemia 02/04/2021 02/10/2021 Hyponatremia 02/04/2021 02/04/2021 Lightheadedness 02/04/2021 02/04/2021 Malaise and fatigue 02/04/2021 02/04/2021 Diabetic ulcer of posterior right heel 0 08/12/2020 Obesity, Class II, BMI 35-39.9 02/05/2020 0 02/10/2021 Chest pain 04/01/2017 03/10/2019 Insulin long-term use 08/09/2012 12/12/2018 documented as of this encounter (statuses as of 10/30/2022) [facility] History of Past illness Narrative* Problem Noted Date Resolved Date Obesity, Class II, BMI 35-39.9 09/29/2021 0 09/23/2022 Obesity, Class I, BMI 30-34.9 02/10/2021 Hyperglycemia 02/04/2021 02/10/2021 Hyponatremia 02/04/2021 02/04/2021 Lightheadedness 02/04/2021 02/04/2021 Malaise and fatigue 02/04/2021 02/04/2021 Diabetic ulcer of posterior right heel 0 08/12/2020 Obesity, Class II, BMI 35-39.9 02/05/2020 0 02/10/2021 Chest pain 04/01/2017 03/10/2019 Insulin long-term use 08/09/2012 12/12/2018 documented as of this encounter (statuses as of 11/01/2022) [facility] History of Past illness Narrative* Problem Noted Date Resolved Date Obesity, Class II, BMI 35-39.9 09/29/2021 0 09/23/2022 Obesity, Class I, BMI 30-34.9 02/10/2021 Hyperglycemia 02/04/2021 02/10/2021 Hyponatremia 02/04/2021 02/04/2021 Lightheadedness 02/04/2021 02/04/2021 Malaise and fatigue 02/04/2021 02/04/2021 Diabetic ulcer of posterior right heel 0 08/12/2020 Obesity, Class II, BMI 35-39.9 02/05/2020 0 02/10/2021 Chest pain 04/01/2017 03/10/2019 Insulin long-term use 08/09/2012 12/12/2018 documented as of this encounter (statuses as of 11/09/2022) [facility] History of Past illness Narrative* Problem Noted Date Resolved Date Obesity, Class II, BMI 35-39.9 09/29/2021 0 09/23/2022 Obesity, Class I, BMI 30-34.9 02/10/2021 Hyperglycemia 02/04/2021 02/10/2021 Hyponatremia 02/04/2021 02/04/2021 Lightheadedness 02/04/2021 02/04/2021 Malaise and fatigue 02/04/2021 02/04/2021 Diabetic ulcer of posterior right heel 0 08/12/2020 Obesity, Class II, BMI 35-39.9 02/05/2020 0 02/10/2021 Chest pain 04/01/2017 03/10/2019 Insulin long-term use 08/09/2012 12/12/2018 documented as of this encounter (statuses as of 11/09/2022) [facility] History of Past illness Narrative* Problem Noted Date Resolved Date Obesity, Class II, BMI 35-39.9 09/29/2021 0 09/23/2022 Obesity, Class I, BMI 30-34.9 02/10/2021 Hyperglycemia 02/04/2021 02/10/2021 Hyponatremia 02/04/2021 02/04/2021 Lightheadedness 02/04/2021 02/04/2021 Malaise and fatigue 02/04/2021 02/04/2021 Diabetic ulcer of posterior right heel 0 08/12/2020 Obesity, Class II, BMI 35-39.9 02/05/2020 0 02/10/2021 Chest pain 04/01/2017 03/10/2019 Insulin long-term use 08/09/2012 12/12/2018 documented as of this encounter (statuses as of 11/11/2022) [facility] History of Past illness Narrative* Problem Noted Date Resolved Date Obesity, Class II, BMI 35-39.9 09/29/2021 0 09/23/2022 Obesity, Class I, BMI 30-34.9 02/10/2021 Hyperglycemia 02/04/2021 02/10/2021 Hyponatremia 02/04/2021 02/04/2021 Lightheadedness 02/04/2021 02/04/2021 Malaise and fatigue 02/04/2021 02/04/2021 Diabetic ulcer of posterior right heel 0 08/12/2020 Obesity, Class II, BMI 35-39.9 02/05/2020 0 02/10/2021 Chest pain 04/01/2017 03/10/2019 Insulin long-term use 08/09/2012 12/12/2018 documented as of this encounter (statuses as of 11/17/2022) [facility] History of Past illness Narrative* Problem Noted Date Resolved Date Obesity, Class II, BMI 35-39.9 09/29/2021 0 09/23/2022 Obesity, Class I, BMI 30-34.9 02/10/2021 Hyperglycemia 02/04/2021 02/10/2021 Hyponatremia 02/04/2021 02/04/2021 Lightheadedness 02/04/2021 02/04/2021 Malaise and fatigue 02/04/2021 02/04/2021 Diabetic ulcer of posterior right heel 0 08/12/2020 Obesity, Class II, BMI 35-39.9 02/05/2020 0 02/10/2021 Chest pain 04/01/2017 03/10/2019 Insulin long-term use 08/09/2012 12/12/2018 documented as of this encounter (statuses as of 11/20/2022) [facility] History of Past illness Narrative* Problem Noted Date Resolved Date Obesity, Class II, BMI 35-39.9 09/29/2021 0 09/23/2022 Obesity, Class I, BMI 30-34.9 02/10/2021 Hyperglycemia 02/04/2021 02/10/2021 Hyponatremia 02/04/2021 02/04/2021 Lightheadedness 02/04/2021 02/04/2021 Malaise and fatigue 02/04/2021 02/04/2021 Diabetic ulcer of posterior right heel 0 08/12/2020 Obesity, Class II, BMI 35-39.9 02/05/2020 0 02/10/2021 Chest pain 04/01/2017 03/10/2019 Insulin long-term use 08/09/2012 12/12/2018 documented as of this encounter (statuses as of 11/24/2022) [address]24-2022 History of Past illness Narrative* Problem Noted Date Resolved Date Obesity, Class II, BMI 35-39.9 09/29/2021 0 09/23/2022 Obesity, Class I, BMI 30-34.9 02/10/2021 Hyperglycemia 02/04/2021 02/10/2021 Hyponatremia 02/04/2021 02/04/2021 Lightheadedness 02/04/2021 02/04/2021 Malaise and fatigue 02/04/2021 02/04/2021 Diabetic ulcer of posterior right heel 0 08/12/2020 Obesity, Class II, BMI 35-39.9 02/05/2020 0 02/10/2021 Chest pain 04/01/2017 03/10/2019 Insulin long-term use 08/09/2012 12/12/2018 documented as of this encounter (statuses as of 11/24/2022) [facility] History of Past illness Narrative* Problem Noted Date Resolved Date Obesity, Class II, BMI 35-39.9 09/29/2021 0 09/23/2022 Obesity, Class I, BMI 30-34.9 02/10/2021 Hyperglycemia 02/04/2021 02/10/2021 Hyponatremia 02/04/2021 02/04/2021 Lightheadedness 02/04/2021 02/04/2021 Malaise and fatigue 02/04/2021 02/04/2021 Diabetic ulcer of posterior right heel 0 08/12/2020 Obesity, Class II, BMI 35-39.9 02/05/2020 0 02/10/2021 Chest pain 04/01/2017 03/10/2019 Insulin long-term use 08/09/2012 12/12/2018 documented as of this encounter (statuses as of 11/27/2022) [facility] History of Past illness Narrative* Problem Noted Date Resolved Date Obesity, Class II, BMI 35-39.9 09/29/2021 0 09/23/2022 Obesity, Class I, BMI 30-34.9 02/10/2021 Hyperglycemia 02/04/2021 02/10/2021 Hyponatremia 02/04/2021 02/04/2021 Lightheadedness 02/04/2021 02/04/2021 Malaise and fatigue 02/04/2021 02/04/2021 Diabetic ulcer of posterior right heel 0 08/12/2020 Obesity, Class II, BMI 35-39.9 02/05/2020 0 02/10/2021 Chest pain 04/01/2017 03/10/2019 Insulin long-term use 08/09/2012 12/12/2018 documented as of this encounter (statuses as of 12/01/2022) [facility] History of Past illness Narrative* Problem Noted Date Resolved Date Obesity, Class II, BMI 35-39.9 09/29/2021 0 09/23/2022 Obesity, Class I, BMI 30-34.9 02/10/2021 Hyperglycemia 02/04/2021 02/10/2021 Hyponatremia 02/04/2021 02/04/2021 Lightheadedness 02/04/2021 02/04/2021 Malaise and fatigue 02/04/2021 02/04/2021 Diabetic ulcer of posterior right heel 0 08/12/2020 Obesity, Class II, BMI 35-39.9 02/05/2020 0 02/10/2021 Chest pain 04/01/2017 03/10/2019 Insulin long-term use 08/09/2012 12/12/2018 documented as of this encounter (statuses as of 12/01/2022) [facility] History of Past illness Narrative* Problem Noted Date Resolved Date Obesity, Class II, BMI 35-39.9 09/29/2021 0 09/23/2022 Obesity, Class I, BMI 30-34.9 02/10/2021 Hyperglycemia 02/04/2021 02/10/2021 Hyponatremia 02/04/2021 02/04/2021 Lightheadedness 02/04/2021 02/04/2021 Malaise and fatigue 02/04/2021 02/04/2021 Diabetic ulcer of posterior right heel 0 08/12/2020 Obesity, Class II, BMI 35-39.9 02/05/2020 0 02/10/2021 Chest pain 04/01/2017 03/10/2019 Insulin long-term use 08/09/2012 12/12/2018 documented as of this encounter (statuses as of 12/04/2022) [facility] History of Past illness Narrative* Problem Noted Date Resolved Date Obesity, Class II, BMI 35-39.9 09/29/2021 0 09/23/2022 Obesity, Class I, BMI 30-34.9 02/10/2021 Hyperglycemia 02/04/2021 02/10/2021 Hyponatremia 02/04/2021 02/04/2021 Lightheadedness 02/04/2021 02/04/2021 Malaise and fatigue 02/04/2021 02/04/2021 Diabetic ulcer of posterior right heel 0 08/12/2020 Obesity, Class II, BMI 35-39.9 02/05/2020 0 02/10/2021 Chest pain 04/01/2017 03/10/2019 Insulin long-term use 08/09/2012 12/12/2018 documented as of this encounter (statuses as of 12/08/2022) [facility] History of Past illness Narrative* Problem Noted Date Resolved Date Obesity, Class II, BMI 35-39.9 09/29/2021 0 09/23/2022 Obesity, Class I, BMI 30-34.9 02/10/2021 Hyperglycemia 02/04/2021 02/10/2021 Hyponatremia 02/04/2021 02/04/2021 Lightheadedness 02/04/2021 02/04/2021 Malaise and fatigue 02/04/2021 02/04/2021 Diabetic ulcer of posterior right heel 0 08/12/2020 Obesity, Class II, BMI 35-39.9 02/05/2020 0 02/10/2021 Chest pain 04/01/2017 03/10/2019 Insulin long-term use 08/09/2012 12/12/2018 documented as of this encounter (statuses as of 12/09/2022) [facility] History of Past illness Narrative* Problem Noted Date Resolved Date Obesity, Class II, BMI 35-39.9 09/29/2021 0 09/23/2022 Obesity, Class I, BMI 30-34.9 02/10/2021 Hyperglycemia 02/04/2021 02/10/2021 Hyponatremia 02/04/2021 02/04/2021 Lightheadedness 02/04/2021 02/04/2021 Malaise and fatigue 02/04/2021 02/04/2021 Diabetic ulcer of posterior right heel 0 08/12/2020 Obesity, Class II, BMI 35-39.9 02/05/2020 0 02/10/2021 Chest pain 04/01/2017 03/10/2019 Insulin long-term use 08/09/2012 12/12/2018 documented as of this encounter (statuses as of 12/09/2022) [facility] History of Past illness Narrative* Problem Noted Date Resolved Date Obesity, Class II, BMI 35-39.9 09/29/2021 0 09/23/2022 Obesity, Class I, BMI 30-34.9 02/10/2021 Hyperglycemia 02/04/2021 02/10/2021 Hyponatremia 02/04/2021 02/04/2021 Lightheadedness 02/04/2021 02/04/2021 Malaise and fatigue 02/04/2021 02/04/2021 Diabetic ulcer of posterior right heel 0 08/12/2020 Obesity, Class II, BMI 35-39.9 02/05/2020 0 02/10/2021 Chest pain 04/01/2017 03/10/2019 Insulin long-term use 08/09/2012 12/12/2018 documented as of this encounter (statuses as of 12/11/2022) [facility] History of Past illness Narrative* Problem Noted Date Resolved Date Obesity, Class II, BMI 35-39.9 09/29/2021 0 09/23/2022 Obesity, Class I, BMI 30-34.9 02/10/2021 Hyperglycemia 02/04/2021 02/10/2021 Hyponatremia 02/04/2021 02/04/2021 Lightheadedness 02/04/2021 02/04/2021 Malaise and fatigue 02/04/2021 02/04/2021 Diabetic ulcer of posterior right heel 0 08/12/2020 Obesity, Class II, BMI 35-39.9 02/05/2020 0 02/10/2021 Chest pain 04/01/2017 03/10/2019 Insulin long-term use 08/09/2012 12/12/2018 documented as of this encounter (statuses as of 12/11/2022) [facility] History of Past illness Narrative* Problem Noted Date Resolved Date Obesity, Class II, BMI 35-39.9 09/29/2021 0 09/23/2022 Obesity, Class I, BMI 30-34.9 02/10/2021 Hyperglycemia 02/04/2021 02/10/2021 Hyponatremia 02/04/2021 02/04/2021 Lightheadedness 02/04/2021 02/04/2021 Malaise and fatigue 02/04/2021 02/04/2021 Diabetic ulcer of posterior right heel 0 08/12/2020 Obesity, Class II, BMI 35-39.9 02/05/2020 0 02/10/2021 Chest pain 04/01/2017 03/10/2019 Insulin long-term use 08/09/2012 12/12/2018 documented as of this encounter (statuses as of 12/16/2022) [facility] History of Past illness Narrative* Problem Noted Date Resolved Date Obesity, Class II, BMI 35-39.9 09/29/2021 0 09/23/2022 Obesity, Class I, BMI 30-34.9 02/10/2021 Hyperglycemia 02/04/2021 02/10/2021 Hyponatremia 02/04/2021 02/04/2021 Lightheadedness 02/04/2021 02/04/2021 Malaise and fatigue 02/04/2021 02/04/2021 Diabetic ulcer of posterior right heel 0 08/12/2020 Obesity, Class II, BMI 35-39.9 02/05/2020 0 02/10/2021 Chest pain 04/01/2017 03/10/2019 Insulin long-term use 08/09/2012 12/12/2018 documented as of this encounter (statuses as of 12/17/2022) [facility] History of Past illness Narrative* Problem Noted Date Resolved Date Obesity, Class II, BMI 35-39.9 09/29/2021 0 09/23/2022 Obesity, Class I, BMI 30-34.9 02/10/2021 Hyperglycemia 02/04/2021 02/10/2021 Hyponatremia 02/04/2021 02/04/2021 Lightheadedness 02/04/2021 02/04/2021 Malaise and fatigue 02/04/2021 02/04/2021 Diabetic ulcer of posterior right heel 0 08/12/2020 Obesity, Class II, BMI 35-39.9 02/05/2020 0 02/10/2021 Chest pain 04/01/2017 03/10/2019 Insulin long-term use 08/09/2012 12/12/2018 documented as of this encounter (statuses as of 12/18/2022) [facility] History of Past illness Narrative* Problem Noted Date Resolved Date Obesity, Class II, BMI 35-39.9 09/29/2021 0 09/23/2022 Obesity, Class I, BMI 30-34.9 02/10/2021 Hyperglycemia 02/04/2021 02/10/2021 Hyponatremia 02/04/2021 02/04/2021 Lightheadedness 02/04/2021 02/04/2021 Malaise and fatigue 02/04/2021 02/04/2021 Diabetic ulcer of posterior right heel 0 08/12/2020 Obesity, Class II, BMI 35-39.9 02/05/2020 0 02/10/2021 Chest pain 04/01/2017 03/10/2019 Insulin long-term use 08/09/2012 12/12/2018 documented as of this encounter (statuses as of 12/19/2022) [facility] of Past illness Narrative* Problem Noted Date Resolved Date Obesity, Class II, BMI 35-39.9 09/29/2021 0 09/23/2022 Obesity, Class I, BMI 30-34.9 02/10/2021 Hyperglycemia 02/04/2021 02/10/2021 Hyponatremia 02/04/2021 02/04/2021 Lightheadedness 02/04/2021 02/04/2021 Malaise and fatigue 02/04/2021 02/04/2021 Diabetic ulcer of posterior right heel 0 08/12/2020 Obesity, Class II, BMI 35-39.9 02/05/2020 0 02/10/2021 Chest pain 04/01/2017 03/10/2019 Insulin long-term use 08/09/2012 12/12/2018 documented as of this encounter (statuses as of 12/19/2022) [facility] History of Past illness Narrative* Problem Noted Date Resolved Date Obesity, Class II, BMI 35-39.9 09/29/2021 0 09/23/2022 Obesity, Class I, BMI 30-34.9 02/10/2021 Hyperglycemia 02/04/2021 02/10/2021 Hyponatremia 02/04/2021 02/04/2021 Lightheadedness 02/04/2021 02/04/2021 Malaise and fatigue 02/04/2021 02/04/2021 Diabetic ulcer of posterior right heel 0 08/12/2020 Obesity, Class II, BMI 35-39.9 02/05/2020 0 02/10/2021 Chest pain 04/01/2017 03/10/2019 Insulin long-term use 08/09/2012 12/12/2018 documented as of this encounter (statuses as of 12/22/2022) [facility] History of Past illness Narrative* Problem Noted Date Resolved Date Obesity, Class II, BMI 35-39.9 09/29/2021 0 09/23/2022 Obesity, Class I, BMI 30-34.9 02/10/2021 Hyperglycemia 02/04/2021 02/10/2021 Hyponatremia 02/04/2021 02/04/2021 Lightheadedness 02/04/2021 02/04/2021 Malaise and fatigue 02/04/2021 02/04/2021 Diabetic ulcer of posterior right heel 0 08/12/2020 Obesity, Class II, BMI 35-39.9 02/05/2020 0 02/10/2021 Chest pain 04/01/2017 03/10/2019 Insulin long-term use 08/09/2012 12/12/2018 documented as of this encounter (statuses as of 12/24/2022) [facility] History of Past illness Narrative* Problem Noted Date Resolved Date Obesity, Class II, BMI 35-39.9 09/29/2021 0 09/23/2022 Obesity, Class I, BMI 30-34.9 02/10/2021 Hyperglycemia 02/04/2021 02/10/2021 Hyponatremia 02/04/2021 02/04/2021 Lightheadedness 02/04/2021 02/04/2021 Malaise and fatigue 02/04/2021 02/04/2021 Diabetic ulcer of posterior right heel 0 08/12/2020 Obesity, Class II, BMI 35-39.9 02/05/2020 0 02/10/2021 Chest pain 04/01/2017 03/10/2019 Insulin long-term use 08/09/2012 12/12/2018 documented as of this encounter (statuses as of 12/25/2022) [facility] History of Past illness Narrative* Problem Noted Date Resolved Date Obesity, Class II, BMI 35-39.9 09/29/2021 0 09/23/2022 Obesity, Class I, BMI 30-34.9 02/10/2021 Hyperglycemia 02/04/2021 02/10/2021 Hyponatremia 02/04/2021 02/04/2021 Lightheadedness 02/04/2021 02/04/2021 Malaise and fatigue 02/04/2021 02/04/2021 Diabetic ulcer of posterior right heel 0 08/12/2020 Obesity, Class II, BMI 35-39.9 02/05/2020 0 02/10/2021 Chest pain 04/01/2017 03/10/2019 Insulin long-term use 08/09/2012 12/12/2018 documented as of this encounter (statuses as of 12/26/2022) [facility] of Past illness Narrative* Problem Noted Date Resolved Date Obesity, Class II, BMI 35-39.9 09/29/2021 0 09/23/2022 Obesity, Class I, BMI 30-34.9 02/10/2021 Hyperglycemia 02/04/2021 02/10/2021 Hyponatremia 02/04/2021 02/04/2021 Lightheadedness 02/04/2021 02/04/2021 Malaise and fatigue 02/04/2021 02/04/2021 Diabetic ulcer of posterior right heel 0 08/12/2020 Obesity, Class II, BMI 35-39.9 02/05/2020 0 02/10/2021 Chest pain 04/01/2017 03/10/2019 Insulin long-term use 08/09/2012 12/12/2018 documented as of this encounter (statuses as of 12/29/2022) [facility] of Past illness Narrative* Problem Noted Date Resolved Date Obesity, Class II, BMI 35-39.9 09/29/2021 0 09/23/2022 Obesity, Class I, BMI 30-34.9 02/10/2021 Hyperglycemia 02/04/2021 02/10/2021 Hyponatremia 02/04/2021 02/04/2021 Lightheadedness 02/04/2021 02/04/2021 Malaise and fatigue 02/04/2021 02/04/2021 Diabetic ulcer of posterior right heel 0 08/12/2020 Obesity, Class II, BMI 35-39.9 02/05/2020 0 02/10/2021 Chest pain 04/01/2017 03/10/2019 Insulin long-term use 08/09/2012 12/12/2018 documented as of this encounter (statuses as of 12/31/2022) [address]22 History of Past illness Narrative* Problem Noted Date Resolved Date Obesity, Class II, BMI 35-39.9 09/29/2021 0 09/23/2022 Obesity, Class I, BMI 30-34.9 02/10/2021 Hyperglycemia 02/04/2021 02/10/2021 Hyponatremia 02/04/2021 02/04/2021 Lightheadedness 02/04/2021 02/04/2021 Malaise and fatigue 02/04/2021 02/04/2021 Diabetic ulcer of posterior right heel 0 08/12/2020 Obesity, Class II, BMI 35-39.9 02/05/2020 0 02/10/2021 Chest pain 04/01/2017 03/10/2019 Insulin long-term use 08/09/2012 12/12/2018 documented as of this encounter (statuses as of 01/01/2023) [facility] of Past illness Narrative* Problem Noted Date Resolved Date Obesity, Class II, BMI 35-39.9 09/29/2021 0 09/23/2022 Obesity, Class I, BMI 30-34.9 02/10/2021 Hyperglycemia 02/04/2021 02/10/2021 Hyponatremia 02/04/2021 02/04/2021 Lightheadedness 02/04/2021 02/04/2021 Malaise and fatigue 02/04/2021 02/04/2021 Diabetic ulcer of posterior right heel 0 08/12/2020 Obesity, Class II, BMI 35-39.9 02/05/2020 0 02/10/2021 Chest pain 04/01/2017 03/10/2019 Insulin long-term use 08/09/2012 12/12/2018 documented as of this encounter (statuses as of 01/04/2023) [facility] History of Past illness Narrative* Problem Noted Date Resolved Date Obesity, Class II, BMI 35-39.9 09/29/2021 0 09/23/2022 Obesity, Class I, BMI 30-34.9 02/10/2021 Hyperglycemia 02/04/2021 02/10/2021 Hyponatremia 02/04/2021 02/04/2021 Lightheadedness 02/04/2021 02/04/2021 Malaise and fatigue 02/04/2021 02/04/2021 Diabetic ulcer of posterior right heel 0 08/12/2020 Obesity, Class II, BMI 35-39.9 02/05/2020 0 02/10/2021 Chest pain 04/01/2017 03/10/2019 Insulin long-term use 08/09/2012 12/12/2018 documented as of this encounter (statuses as of 01/05/2023) [facility] of Past illness Narrative* Problem Noted Date Resolved Date Obesity, Class II, BMI 35-39.9 09/29/2021 0 09/23/2022 Obesity, Class I, BMI 30-34.9 02/10/2021 Hyperglycemia 02/04/2021 02/10/2021 Hyponatremia 02/04/2021 02/04/2021 Lightheadedness 02/04/2021 02/04/2021 Malaise and fatigue 02/04/2021 02/04/2021 Diabetic ulcer of posterior right heel 0 08/12/2020 Obesity, Class II, BMI 35-39.9 02/05/2020 0 02/10/2021 Chest pain 04/01/2017 03/10/2019 Insulin long-term use 08/09/2012 12/12/2018 documented as of this encounter (statuses as of 01/06/2023) [facility]2022 History of Past illness Narrative* Problem Noted Date Resolved Date Obesity, Class II, BMI 35-39.9 09/29/2021 0 09/23/2022 Obesity, Class I, BMI 30-34.9 02/10/2021 Hyperglycemia 02/04/2021 02/10/2021 Hyponatremia 02/04/2021 02/04/2021 Lightheadedness 02/04/2021 02/04/2021 Malaise and fatigue 02/04/2021 02/04/2021 Diabetic ulcer of posterior right heel 0 08/12/2020 Obesity, Class II, BMI 35-39.9 02/05/2020 0 02/10/2021 Chest pain 04/01/2017 03/10/2019 Insulin long-term use 08/09/2012 12/12/2018 documented as of this encounter (statuses as of 01/06/2023) [address]24-2022 History of Past illness Narrative* Problem Noted Date Resolved Date Obesity, Class II, BMI 35-39.9 09/29/2021 0 09/23/2022 Obesity, Class I, BMI 30-34.9 02/10/2021 Hyperglycemia 02/04/2021 02/10/2021 Hyponatremia 02/04/2021 02/04/2021 Lightheadedness 02/04/2021 02/04/2021 Malaise and fatigue 02/04/2021 02/04/2021 Diabetic ulcer of posterior right heel 0 08/12/2020 Obesity, Class II, BMI 35-39.9 02/05/2020 0 02/10/2021 Chest pain 04/01/2017 03/10/2019 Insulin long-term use 08/09/2012 12/12/2018 documented as of this encounter (statuses as of 01/08/2023) [facility]22 History of Past illness Narrative* Problem Noted Date Resolved Date Obesity, Class II, BMI 35-39.9 09/29/2021 0 09/23/2022 Obesity, Class I, BMI 30-34.9 02/10/2021 Hyperglycemia 02/04/2021 02/10/2021 Hyponatremia 02/04/2021 02/04/2021 Lightheadedness 02/04/2021 02/04/2021 Malaise and fatigue 02/04/2021 02/04/2021 Diabetic ulcer of posterior right heel 0 08/12/2020 Obesity, Class II, BMI 35-39.9 02/05/2020 0 02/10/2021 Chest pain 04/01/2017 03/10/2019 Insulin long-term use 08/09/2012 12/12/2018 documented as of this encounter (statuses as of 01/08/2023) [facility] History of Past illness Narrative* Problem Noted Date Resolved Date Obesity, Class II, BMI 35-39.9 09/29/2021 0 09/23/2022 Obesity, Class I, BMI 30-34.9 02/10/2021 Hyperglycemia 02/04/2021 02/10/2021 Hyponatremia 02/04/2021 02/04/2021 Lightheadedness 02/04/2021 02/04/2021 Malaise and fatigue 02/04/2021 02/04/2021 Diabetic ulcer of posterior right heel 0 08/12/2020 Obesity, Class II, BMI 35-39.9 02/05/2020 0 02/10/2021 Chest pain 04/01/2017 03/10/2019 Insulin long-term use 08/09/2012 12/12/2018 documented as of this encounter (statuses as of 01/12/2023) [facility] History of Past illness Narrative* Problem Noted Date Resolved Date Obesity, Class II, BMI 35-39.9 09/29/2021 0 09/23/2022 Obesity, Class I, BMI 30-34.9 02/10/2021 Hyperglycemia 02/04/2021 02/10/2021 Hyponatremia 02/04/2021 02/04/2021 Lightheadedness 02/04/2021 02/04/2021 Malaise and fatigue 02/04/2021 02/04/2021 Diabetic ulcer of posterior right heel 0 08/12/2020 Obesity, Class II, BMI 35-39.9 02/05/2020 0 02/10/2021 Chest pain 04/01/2017 03/10/2019 Insulin long-term use 08/09/2012 12/12/2018 documented as of this encounter (statuses as of 01/12/2023) [facility] History of Past illness Narrative* Problem Noted Date Resolved Date Obesity, Class II, BMI 35-39.9 09/29/2021 0 09/23/2022 Obesity, Class I, BMI 30-34.9 02/10/2021 Hyperglycemia 02/04/2021 02/10/2021 Hyponatremia 02/04/2021 02/04/2021 Lightheadedness 02/04/2021 02/04/2021 Malaise and fatigue 02/04/2021 02/04/2021 Diabetic ulcer of posterior right heel 0 08/12/2020 Obesity, Class II, BMI 35-39.9 02/05/2020 0 02/10/2021 Chest pain 04/01/2017 03/10/2019 Insulin long-term use 08/09/2012 12/12/2018 documented as of this encounter (statuses as of 01/14/2023) [facility] History of Past illness Narrative* Problem Noted Date Resolved Date Obesity, Class II, BMI 35-39.9 09/29/2021 0 09/23/2022 Obesity, Class I, BMI 30-34.9 02/10/2021 Hyperglycemia 02/04/2021 02/10/2021 Hyponatremia 02/04/2021 02/04/2021 Lightheadedness 02/04/2021 02/04/2021 Malaise and fatigue 02/04/2021 02/04/2021 Diabetic ulcer of posterior right heel 0 08/12/2020 Obesity, Class II, BMI 35-39.9 02/05/2020 0 02/10/2021 Chest pain 04/01/2017 03/10/2019 Insulin long-term use 08/09/2012 12/12/2018 documented as of this encounter (statuses as of 01/14/2023) [facility] History of Past illness Narrative* Problem Noted Date Resolved Date Obesity, Class II, BMI 35-39.9 09/29/2021 0 09/23/2022 Obesity, Class I, BMI 30-34.9 02/10/2021 Hyperglycemia 02/04/2021 02/10/2021 Hyponatremia 02/04/2021 02/04/2021 Lightheadedness 02/04/2021 02/04/2021 Malaise and fatigue 02/04/2021 02/04/2021 Diabetic ulcer of posterior right heel 0 08/12/2020 Obesity, Class II, BMI 35-39.9 02/05/2020 0 02/10/2021 Chest pain 04/01/2017 03/10/2019 Insulin long-term use 08/09/2012 12/12/2018 documented as of this encounter (statuses as of 01/15/2023) [facility] History of Past illness Narrative* Problem Noted Date Resolved Date Obesity, Class II, BMI 35-39.9 09/29/2021 0 09/23/2022 Obesity, Class I, BMI 30-34.9 02/10/2021 Hyperglycemia 02/04/2021 02/10/2021 Hyponatremia 02/04/2021 02/04/2021 Lightheadedness 02/04/2021 02/04/2021 Malaise and fatigue 02/04/2021 02/04/2021 Diabetic ulcer of posterior right heel 0 08/12/2020 Obesity, Class II, BMI 35-39.9 02/05/2020 0 02/10/2021 Chest pain 04/01/2017 03/10/2019 Insulin long-term use 08/09/2012 12/12/2018 documented as of this encounter (statuses as of 01/18/2023) [facility] History of Past illness Narrative* Problem Noted Date Resolved Date Obesity, Class II, BMI 35-39.9 09/29/2021 0 09/23/2022 Obesity, Class I, BMI 30-34.9 02/10/2021 Hyperglycemia 02/04/2021 02/10/2021 Hyponatremia 02/04/2021 02/04/2021 Lightheadedness 02/04/2021 02/04/2021 Malaise and fatigue 02/04/2021 02/04/2021 Diabetic ulcer of posterior right heel 0 08/12/2020 Obesity, Class II, BMI 35-39.9 02/05/2020 0 02/10/2021 Chest pain 04/01/2017 03/10/2019 Insulin long-term use 08/09/2012 12/12/2018 documented as of this encounter (statuses as of 01/18/2023) [facility] History of Past illness Narrative* Problem Noted Date Resolved Date Obesity, Class II, BMI 35-39.9 09/29/2021 0 09/23/2022 Obesity, Class I, BMI 30-34.9 02/10/2021 Hyperglycemia 02/04/2021 02/10/2021 Hyponatremia 02/04/2021 02/04/2021 Lightheadedness 02/04/2021 02/04/2021 Malaise and fatigue 02/04/2021 02/04/2021 Diabetic ulcer of posterior right heel 0 08/12/2020 Obesity, Class II, BMI 35-39.9 02/05/2020 0 02/10/2021 Chest pain 04/01/2017 03/10/2019 Insulin long-term use 08/09/2012 12/12/2018 documented as of this encounter (statuses as of 02/05/2023) [facility] History of Past illness Narrative* Problem Noted Date Resolved Date Obesity, Class II, BMI 35-39.9 09/29/2021 0 09/23/2022 Obesity, Class I, BMI 30-34.9 02/10/2021 Hyperglycemia 02/04/2021 02/10/2021 Hyponatremia 02/04/2021 02/04/2021 Lightheadedness 02/04/2021 02/04/2021 Malaise and fatigue 02/04/2021 02/04/2021 Diabetic ulcer of posterior right heel 0 08/12/2020 Obesity, Class II, BMI 35-39.9 02/05/2020 0 02/10/2021 Chest pain 04/01/2017 03/10/2019 Insulin long-term use 08/09/2012 12/12/2018 documented as of this encounter (statuses as of 02/05/2023) [facility] History of Past illness Narrative* Problem Noted Date Resolved Date Obesity, Class II, BMI 35-39.9 09/29/2021 0 09/23/2022 Obesity, Class I, BMI 30-34.9 02/10/2021 Hyperglycemia 02/04/2021 02/10/2021 Hyponatremia 02/04/2021 02/04/2021 Lightheadedness 02/04/2021 02/04/2021 Malaise and fatigue 02/04/2021 02/04/2021 Diabetic ulcer of posterior right heel 0 08/12/2020 Obesity, Class II, BMI 35-39.9 02/05/2020 0 02/10/2021 Chest pain 04/01/2017 03/10/2019 Insulin long-term use 08/09/2012 12/12/2018 documented as of this encounter (statuses as of 02/09/2023) [facility] History of Past illness Narrative* Problem Noted Date Resolved Date Obesity, Class II, BMI 35-39.9 09/29/2021 0 09/23/2022 Obesity, Class I, BMI 30-34.9 02/10/2021 Hyperglycemia 02/04/2021 02/10/2021 Hyponatremia 02/04/2021 02/04/2021 Lightheadedness 02/04/2021 02/04/2021 Malaise and fatigue 02/04/2021 02/04/2021 Diabetic ulcer of posterior right heel 0 08/12/2020 Obesity, Class II, BMI 35-39.9 02/05/2020 0 02/10/2021 Chest pain 04/01/2017 03/10/2019 Insulin long-term use 08/09/2012 12/12/2018 documented as of this encounter (statuses as of 02/09/2023) [facility] History of Past illness Narrative* Problem Noted Date Resolved Date Obesity, Class II, BMI 35-39.9 09/29/2021 0 09/23/2022 Obesity, Class I, BMI 30-34.9 02/10/2021 Hyperglycemia 02/04/2021 02/10/2021 Hyponatremia 02/04/2021 02/04/2021 Lightheadedness 02/04/2021 02/04/2021 Malaise and fatigue 02/04/2021 02/04/2021 Diabetic ulcer of posterior right heel 0 08/12/2020 Obesity, Class II, BMI 35-39.9 02/05/2020 0 02/10/2021 Chest pain 04/01/2017 03/10/2019 Insulin long-term use 08/09/2012 12/12/2018 documented as of this encounter (statuses as of 02/09/2023) [facility] History of Past illness Narrative* Problem Noted Date Resolved Date Obesity, Class II, BMI 35-39.9 09/29/2021 0 09/23/2022 Obesity, Class I, BMI 30-34.9 02/10/2021 Hyperglycemia 02/04/2021 02/10/2021 Hyponatremia 02/04/2021 02/04/2021 Lightheadedness 02/04/2021 02/04/2021 Malaise and fatigue 02/04/2021 02/04/2021 Diabetic ulcer of posterior right heel 0 08/12/2020 Obesity, Class II, BMI 35-39.9 02/05/2020 0 02/10/2021 Chest pain 04/01/2017 03/10/2019 Insulin long-term use 08/09/2012 12/12/2018 documented as of this encounter (statuses as of 02/17/2023) [facility] History of Past illness Narrative* Problem Noted Date Resolved Date Obesity, Class II, BMI 35-39.9 09/29/2021 0 09/23/2022 Obesity, Class I, BMI 30-34.9 02/10/2021 Hyperglycemia 02/04/2021 02/10/2021 Hyponatremia 02/04/2021 02/04/2021 Lightheadedness 02/04/2021 02/04/2021 Malaise and fatigue 02/04/2021 02/04/2021 Diabetic ulcer of posterior right heel 0 08/12/2020 Obesity, Class II, BMI 35-39.9 02/05/2020 0 02/10/2021 Chest pain 04/01/2017 03/10/2019 Insulin long-term use 08/09/2012 12/12/2018 documented as of this encounter (statuses as of 02/17/2023) [facility] History of Past illness Narrative* Problem Noted Date Resolved Date Obesity, Class II, BMI 35-39.9 09/29/2021 0 09/23/2022 Obesity, Class I, BMI 30-34.9 02/10/2021 Hyperglycemia 02/04/2021 02/10/2021 Hyponatremia 02/04/2021 02/04/2021 Lightheadedness 02/04/2021 02/04/2021 Malaise and fatigue 02/04/2021 02/04/2021 Diabetic ulcer of posterior right heel 0 08/12/2020 Obesity, Class II, BMI 35-39.9 02/05/2020 0 02/10/2021 Chest pain 04/01/2017 03/10/2019 Insulin long-term use 08/09/2012 12/12/2018 documented as of this encounter (statuses as of 02/18/2023) [facility] History of Past illness Narrative* Problem Noted Date Resolved Date Obesity, Class II, BMI 35-39.9 09/29/2021 0 09/23/2022 Obesity, Class I, BMI 30-34.9 02/10/2021 Hyperglycemia 02/04/2021 02/10/2021 Hyponatremia 02/04/2021 02/04/2021 Lightheadedness 02/04/2021 02/04/2021 Malaise and fatigue 02/04/2021 02/04/2021 Diabetic ulcer of posterior right heel 0 08/12/2020 Obesity, Class II, BMI 35-39.9 02/05/2020 0 02/10/2021 Chest pain 04/01/2017 03/10/2019 Insulin long-term use 08/09/2012 12/12/2018 documented as of this encounter (statuses as of 02/19/2023) [facility] History of Past illness Narrative* Problem Noted Date Resolved Date Obesity, Class II, BMI 35-39.9 09/29/2021 0 09/23/2022 Obesity, Class I, BMI 30-34.9 02/10/2021 Hyperglycemia 02/04/2021 02/10/2021 Hyponatremia 02/04/2021 02/04/2021 Lightheadedness 02/04/2021 02/04/2021 Malaise and fatigue 02/04/2021 02/04/2021 Diabetic ulcer of posterior right heel 0 08/12/2020 Obesity, Class II, BMI 35-39.9 02/05/2020 0 02/10/2021 Chest pain 04/01/2017 03/10/2019 Insulin long-term use 08/09/2012 12/12/2018 documented as of this encounter (statuses as of 02/22/2023) [address]24-2022 History of Past illness Narrative* Problem Noted Date Resolved Date Obesity, Class II, BMI 35-39.9 09/29/2021 0 09/23/2022 Obesity, Class I, BMI 30-34.9 02/10/2021 Hyperglycemia 02/04/2021 02/10/2021 Hyponatremia 02/04/2021 02/04/2021 Lightheadedness 02/04/2021 02/04/2021 Malaise and fatigue 02/04/2021 02/04/2021 Diabetic ulcer of posterior right heel 0 08/12/2020 Obesity, Class II, BMI 35-39.9 02/05/2020 0 02/10/2021 Chest pain 04/01/2017 03/10/2019 Insulin long-term use 08/09/2012 12/12/2018 documented as of this encounter (statuses as of 02/24/2023) [facility] History of Past illness Narrative* Problem Noted Date Resolved Date Obesity, Class II, BMI 35-39.9 09/29/2021 0 09/23/2022 Obesity, Class I, BMI 30-34.9 02/10/2021 Hyperglycemia 02/04/2021 02/10/2021 Hyponatremia 02/04/2021 02/04/2021 Lightheadedness 02/04/2021 02/04/2021 Malaise and fatigue 02/04/2021 02/04/2021 Diabetic ulcer of posterior right heel 0 08/12/2020 Obesity, Class II, BMI 35-39.9 02/05/2020 0 02/10/2021 Chest pain 04/01/2017 03/10/2019 Insulin long-term use 08/09/2012 12/12/2018 documented as of this encounter (statuses as of 02/26/2023) [facility] History of Past illness Narrative* Problem Noted Date Resolved Date Obesity, Class II, BMI 35-39.9 09/29/2021 0 09/23/2022 Obesity, Class I, BMI 30-34.9 02/10/2021 Hyperglycemia 02/04/2021 02/10/2021 Hyponatremia 02/04/2021 02/04/2021 Lightheadedness 02/04/2021 02/04/2021 Malaise and fatigue 02/04/2021 02/04/2021 Diabetic ulcer of posterior right heel 0 08/12/2020 Obesity, Class II, BMI 35-39.9 02/05/2020 0 02/10/2021 Chest pain 04/01/2017 03/10/2019 Insulin long-term use 08/09/2012 12/12/2018 documented as of this encounter (statuses as of 03/01/2023) [facility] History of Past illness Narrative* Problem Noted Date Resolved Date Obesity, Class II, BMI 35-39.9 09/29/2021 0 09/23/2022 Obesity, Class I, BMI 30-34.9 02/10/2021 Hyperglycemia 02/04/2021 02/10/2021 Hyponatremia 02/04/2021 02/04/2021 Lightheadedness 02/04/2021 02/04/2021 Malaise and fatigue 02/04/2021 02/04/2021 Diabetic ulcer of posterior right heel 0 08/12/2020 Obesity, Class II, BMI 35-39.9 02/05/2020 0 02/10/2021 Chest pain 04/01/2017 03/10/2019 Insulin long-term use 08/09/2012 12/12/2018 documented as of this encounter (statuses as of 03/01/2023) [facility] History of Past illness Narrative* Problem Noted Date Resolved Date Obesity, Class II, BMI 35-39.9 09/29/2021 0 09/23/2022 Obesity, Class I, BMI 30-34.9 02/10/2021 Hyperglycemia 02/04/2021 02/10/2021 Hyponatremia 02/04/2021 02/04/2021 Lightheadedness 02/04/2021 02/04/2021 Malaise and fatigue 02/04/2021 02/04/2021 Diabetic ulcer of posterior right heel 0 08/12/2020 Obesity, Class II, BMI 35-39.9 02/05/2020 0 02/10/2021 Chest pain 04/01/2017 03/10/2019 Insulin long-term use 08/09/2012 12/12/2018 documented as of this encounter (statuses as of 03/02/2023) [facility] History of Past illness Narrative* Problem Noted Date Resolved Date Obesity, Class II, BMI 35-39.9 09/29/2021 0 09/23/2022 Obesity, Class I, BMI 30-34.9 02/10/2021 Hyperglycemia 02/04/2021 02/10/2021 Hyponatremia 02/04/2021 02/04/2021 Lightheadedness 02/04/2021 02/04/2021 Malaise and fatigue 02/04/2021 02/04/2021 Diabetic ulcer of posterior right heel 0 08/12/2020 Obesity, Class II, BMI 35-39.9 02/05/2020 0 02/10/2021 Chest pain 04/01/2017 03/10/2019 Insulin long-term use 08/09/2012 12/12/2018 documented as of this encounter (statuses as of 03/04/2023) [facility] History of Past illness Narrative* Problem Noted Date Resolved Date Obesity, Class II, BMI 35-39.9 09/29/2021 0 09/23/2022 Obesity, Class I, BMI 30-34.9 02/10/2021 Hyperglycemia 02/04/2021 02/10/2021 Hyponatremia 02/04/2021 02/04/2021 Lightheadedness 02/04/2021 02/04/2021 Malaise and fatigue 02/04/2021 02/04/2021 Diabetic ulcer of posterior right heel 0 08/12/2020 Obesity, Class II, BMI 35-39.9 02/05/2020 0 02/10/2021 Chest pain 04/01/2017 03/10/2019 Insulin long-term use 08/09/2012 12/12/2018 documented as of this encounter (statuses as of 03/10/2023) [facility] History of Past illness Narrative* Problem Noted Date Resolved Date Obesity, Class II, BMI 35-39.9 09/29/2021 0 09/23/2022 Obesity, Class I, BMI 30-34.9 02/10/2021 Hyperglycemia 02/04/2021 02/10/2021 Hyponatremia 02/04/2021 02/04/2021 Lightheadedness 02/04/2021 02/04/2021 Malaise and fatigue 02/04/2021 02/04/2021 Diabetic ulcer of posterior right heel 0 08/12/2020 Obesity, Class II, BMI 35-39.9 02/05/2020 0 02/10/2021 Chest pain 04/01/2017 03/10/2019 Insulin long-term use 08/09/2012 12/12/2018 documented as of this encounter (statuses as of 03/10/2023) [facility] History of Past illness Narrative* Problem Noted Date Resolved Date Obesity, Class II, BMI 35-39.9 09/29/2021 0 09/23/2022 Obesity, Class I, BMI 30-34.9 02/10/2021 Hyperglycemia 02/04/2021 02/10/2021 Hyponatremia 02/04/2021 02/04/2021 Lightheadedness 02/04/2021 02/04/2021 Malaise and fatigue 02/04/2021 02/04/2021 Diabetic ulcer of posterior right heel 0 08/12/2020 Obesity, Class II, BMI 35-39.9 02/05/2020 0 02/10/2021 Chest pain 04/01/2017 03/10/2019 Insulin long-term use 08/09/2012 12/12/2018 documented as of this encounter (statuses as of 03/12/2023) [place] [id number] History of Past illness Narrative* Problem Noted Date Diagnosed Date Resolved Date Obesity, Class II, BMI 35-39.9 09/29/2021 09/23/2022 Obesity, Class I, BMI 30-34.9 02/10/2021 03/23/2022 Hyperglycemia 02/04/2021 02/10/2021 Hyponatremia 02/04/2021 02/04/2021 Lightheadedness 02/04/2021 02/04/2021 Malaise and fatigue 02/04/2021 02/05/20 21 Diabetic ulcer of posterior right heel 02/06/2020 08/12/2020 Obesity, Class II, BMI 35-39.9 02/05/2020 02/10/2021 Chest pain 04/01/2017 03/10/2019 Insulin long-term use 08/09/20122018 documented as of this encounter (statuses as of 03/13/2023) [facility] History of Past illness Narrative* Problem Noted Date Diagnosed Date Resolved Date Obesity, Class II, BMI 35-39.9 09/29/2021 09/23/2022 Obesity, Class I, BMI 30-34.9 02/10/2021 03/23/2022 Hyperglycemia 02/04/2021 02/10/2021 Hyponatremia 02/04/2021 02/04/2021 Lightheadedness 02/04/2021 02/04/2021 Malaise and fatigue 02/04/2021 02/05/20 21 Diabetic ulcer of posterior right heel 02/06/2020 08/12/2020 Obesity, Class II, BMI 35-39.9 02/05/2020 02/10/2021 Chest pain 04/01/2017 03/10/2019 Insulin long-term use 08/09/20122018 documented as of this encounter (statuses as of 03/13/2023) [facility] History of Past illness Narrative* Problem Noted Date Diagnosed Date Resolved Date Obesity, Class II, BMI 35-39.9 09/29/2021 09/23/2022 Obesity, Class I, BMI 30-34.9 02/10/2021 03/23/2022 Hyperglycemia 02/04/2021 02/10/2021 Hyponatremia 02/04/2021 02/04/2021 Lightheadedness 02/04/2021 02/04/2021 Malaise and fatigue 02/04/2021 02/05/20 21 Diabetic ulcer of posterior right heel 02/06/2020 08/12/2020 Obesity, Class II, BMI 35-39.9 02/05/2020 02/10/2021 Chest pain 04/01/2017 03/10/2019 Insulin long-term use 08/09/20122018 documented as of this encounter (statuses as of 03/13/2023) [facility] History of Past illness Narrative* Problem Noted Date Diagnosed Date Resolved Date Obesity, Class II, BMI 35-39.9 09/29/2021 09/23/2022 Obesity, Class I, BMI 30-34.9 02/10/2021 03/23/2022 Hyperglycemia 02/04/2021 02/10/2021 Hyponatremia 02/04/2021 02/04/2021 Lightheadedness 02/04/2021 02/04/2021 Malaise and fatigue 02/04/2021 02/05/20 21 Diabetic ulcer of posterior right heel 02/06/2020 08/12/2020 Obesity, Class II, BMI 35-39.9 02/05/2020 02/10/2021 Chest pain 04/01/2017 03/10/2019 Insulin long-term use 08/09/20122018 documented as of this encounter (statuses as of 03/23/2023) [facility] History of Past illness Narrative* Problem Noted Date Diagnosed Date Resolved Date Obesity, Class II, BMI 35-39.9 09/29/2021 09/23/2022 Obesity, Class I, BMI 30-34.9 02/10/2021 03/23/2022 Hyperglycemia 02/04/2021 02/10/2021 Hyponatremia 02/04/2021 02/04/2021 Lightheadedness 02/04/2021 02/04/2021 Malaise and fatigue 02/04/2021 02/05/20 21 Diabetic ulcer of posterior right heel 02/06/2020 08/12/2020 Obesity, Class II, BMI 35-39.9 02/05/2020 02/10/2021 Chest pain 04/01/2017 03/10/2019 Insulin long-term use 08/09/20122018 documented as of this encounter (statuses as of 03/23/2023) [facility] History of Past illness Narrative* Problem Noted Date Diagnosed Date Resolved Date Obesity, Class II, BMI 35-39.9 09/29/2021 09/23/2022 Obesity, Class I, BMI 30-34.9 02/10/2021 03/23/2022 Hyperglycemia 02/04/2021 02/10/2021 Hyponatremia 02/04/2021 02/04/2021 Lightheadedness 02/04/2021 02/04/2021 Malaise and fatigue 02/04/2021 02/05/20 21 Diabetic ulcer of posterior right heel 02/06/2020 08/12/2020 Obesity, Class II, BMI 35-39.9 02/05/2020 02/10/2021 Chest pain 04/01/2017 03/10/2019 Insulin long-term use 08/09/20122018 documented as of this encounter (statuses as of 03/25/2023) [facility] History of Past illness Narrative* Problem Noted Date Diagnosed Date Resolved Date Obesity, Class II, BMI 35-39.9 09/29/2021 09/23/2022 Obesity, Class I, BMI 30-34.9 02/10/2021 03/23/2022 Hyperglycemia 02/04/2021 02/10/2021 Hyponatremia 02/04/2021 02/04/2021 Lightheadedness 02/04/2021 02/04/2021 Malaise and fatigue 02/04/2021 02/05/20 21 Diabetic ulcer of posterior right heel 02/06/2020 08/12/2020 Obesity, Class II, BMI 35-39.9 02/05/2020 02/10/2021 Chest pain 04/01/2017 03/10/2019 Insulin long-term use 08/09/20122018 documented as of this encounter (statuses as of 04/07/2023) [facility] History of Past illness Narrative* Problem Noted Date Diagnosed Date Resolved Date Obesity, Class II, BMI 35-39.9 09/29/2021 09/23/2022 Obesity, Class I, BMI 30-34.9 02/10/2021 03/23/2022 Hyperglycemia 02/04/2021 02/10/2021 Hyponatremia 02/04/2021 02/04/2021 Lightheadedness 02/04/2021 02/04/2021 Malaise and fatigue 02/04/2021 02/05/20 21 Diabetic ulcer of posterior right heel 02/06/2020 08/12/2020 Obesity, Class II, BMI 35-39.9 02/05/2020 02/10/2021 Chest pain 04/01/2017 03/10/2019 Insulin long-term use 08/09/20122018 documented as of this encounter (statuses as of 04/15/2023) [facility] History of Past illness Narrative* Problem Noted Date Diagnosed Date Resolved Date Obesity, Class II, BMI 35-39.9 09/29/2021 09/23/2022 Obesity, Class I, BMI 30-34.9 02/10/2021 03/23/2022 Hyperglycemia 02/04/2021 02/10/2021 Hyponatremia 02/04/2021 02/04/2021 Lightheadedness 02/04/2021 02/04/2021 Malaise and fatigue 02/04/2021 02/05/20 21 Diabetic ulcer of posterior right heel 02/06/2020 08/12/2020 Obesity, Class II, BMI 35-39.9 02/05/2020 02/10/2021 Chest pain 04/01/2017 03/10/2019 Insulin long-term use 08/09/20122018 documented as of this encounter (statuses as of 04/27/2023) [facility] History of Past illness Narrative* Problem Noted Date Diagnosed Date Resolved Date Obesity, Class II, BMI 35-39.9 09/29/2021 09/23/2022 Obesity, Class I, BMI 30-34.9 02/10/2021 03/23/2022 Hyperglycemia 02/04/2021 02/10/2021 Hyponatremia 02/04/2021 02/04/2021 Lightheadedness 02/04/2021 02/04/2021 Malaise and fatigue 02/04/2021 02/05/20 21 Diabetic ulcer of posterior right heel 02/06/2020 08/12/2020 Obesity, Class II, BMI 35-39.9 02/05/2020 02/10/2021 Chest pain 04/01/2017 03/10/2019 Insulin long-term use 08/09/20122018 documented as of this encounter (statuses as of 05/05/2023) [address]22 History of Past illness Narrative* Problem Noted Date Diagnosed Date Resolved Date Obesity, Class II, BMI 35-39.9 09/29/2021 09/23/2022 Obesity, Class I, BMI 30-34.9 02/10/2021 03/23/2022 Hyperglycemia 02/04/2021 02/10/2021 Hyponatremia 02/04/2021 02/04/2021 Lightheadedness 02/04/2021 02/04/2021 Malaise and fatigue 02/04/2021 02/05/20 21 Diabetic ulcer of posterior right heel 02/06/2020 08/12/2020 Obesity, Class II, BMI 35-39.9 02/05/2020 02/10/2021 Chest pain 04/01/2017 03/10/2019 Insulin long-term use 08/09/20122018 documented as of this encounter (statuses as of 05/06/2023) [facility]01-24-2022 History of Past illness Narrative* Problem Noted Date Diagnosed Date Resolved Date Obesity, Class II, BMI 35-39.9 09/29/2021 09/23/2022 Obesity, Class I, BMI 30-34.9 02/10/2021 03/23/2022 Hyperglycemia 02/04/2021 02/10/2021 Hyponatremia 02/04/2021 02/04/2021 Lightheadedness 02/04/2021 02/04/2021 Malaise and fatigue 02/04/2021 02/05/20 21 Diabetic ulcer of posterior right heel 02/06/2020 08/12/2020 Obesity, Class II, BMI 35-39.9 02/05/2020 02/10/2021 Chest pain 04/01/2017 03/10/2019 Insulin long-term use 08/09/20122018 documented as of this encounter (statuses as of 05/07/2023) [facility]01-24-2022 History of Past illness Narrative* Problem Noted Date Diagnosed Date Resolved Date Obesity, Class II, BMI 35-39.9 09/29/2021 09/23/2022 Obesity, Class I, BMI 30-34.9 02/10/2021 03/23/2022 Hyperglycemia 02/04/2021 02/10/2021 Hyponatremia 02/04/2021 02/04/2021 Lightheadedness 02/04/2021 02/04/2021 Malaise and fatigue 02/04/2021 02/05/20 21 Diabetic ulcer of posterior right heel 02/06/2020 08/12/2020 Obesity, Class II, BMI 35-39.9 02/05/2020 02/10/2021 Chest pain 04/01/2017 03/10/2019 Insulin long-term use 08/09/20122018 documented as of this encounter (statuses as of 05/11/2023) [facility]01-24-2022 History of Past illness Narrative* Problem Noted Date Diagnosed Date Resolved Date Obesity, Class II, BMI 35-39.9 09/29/2021 09/23/2022 Obesity, Class I, BMI 30-34.9 02/10/2021 03/23/2022 Hyperglycemia 02/04/2021 02/10/2021 Hyponatremia 02/04/2021 02/04/2021 Lightheadedness 02/04/2021 02/04/2021 Malaise and fatigue 02/04/2021 02/05/20 21 Diabetic ulcer of posterior right heel 02/06/2020 08/12/2020 Obesity, Class II, BMI 35-39.9 02/05/2020 02/10/2021 Chest pain 04/01/2017 03/10/2019 Insulin long-term use 08/09/20122018 documented as of this encounter (statuses as of 06/17/2023) [facility] History of Past illness Narrative* Problem Noted Date Diagnosed Date Resolved Date Obesity, Class II, BMI 35-39.9 09/29/2021 09/23/2022 Obesity, Class I, BMI 30-34.9 02/10/2021 03/23/2022 Hyperglycemia 02/04/2021 02/10/2021 Hyponatremia 02/04/2021 02/04/2021 Lightheadedness 02/04/2021 02/04/2021 Malaise and fatigue 02/04/2021 02/05/20 21 Diabetic ulcer of posterior right heel 02/06/2020 08/12/2020 Obesity, Class II, BMI 35-39.9 02/05/2020 02/10/2021 Chest pain 04/01/2017 03/10/2019 Insulin long-term use 08/09/20122018 documented as of this encounter (statuses as of 06/25/2023) [facility] History of Past illness Narrative* Problem Noted Date Diagnosed Date Resolved Date Obesity, Class II, BMI 35-39.9 09/29/2021 09/23/2022 Obesity, Class I, BMI 30-34.9 02/10/2021 03/23/2022 Hyperglycemia 02/04/2021 02/10/2021 Hyponatremia 02/04/2021 02/04/2021 Lightheadedness 02/04/2021 02/04/2021 Malaise and fatigue 02/04/2021 02/05/20 21 Diabetic ulcer of posterior right heel 02/06/2020 08/12/2020 Obesity, Class II, BMI 35-39.9 02/05/2020 02/10/2021 Chest pain 04/01/2017 03/10/2019 Insulin long-term use 08/09/20122018 documented as of this encounter (statuses as of 06/29/2023) [facility] History of Past illness Narrative* Problem Noted Date Diagnosed Date Resolved Date Obesity, Class II, BMI 35-39.9 09/29/2021 09/23/2022 Obesity, Class I, BMI 30-34.9 02/10/2021 03/23/2022 Hyperglycemia 02/04/2021 02/10/2021 Hyponatremia 02/04/2021 02/04/2021 Lightheadedness 02/04/2021 02/04/2021 Malaise and fatigue 02/04/2021 02/05/20 21 Diabetic ulcer of posterior right heel 02/06/2020 08/12/2020 Obesity, Class II, BMI 35-39.9 02/05/2020 02/10/2021 Chest pain 04/01/2017 03/10/2019 Insulin long-term use 08/09/20122018 documented as of this encounter (statuses as of 06/30/2023) [facility] History of Past illness Narrative* Problem Noted Date Diagnosed Date Resolved Date Obesity, Class II, BMI 35-39.9 09/29/2021 09/23/2022 Obesity, Class I, BMI 30-34.9 02/10/2021 03/23/2022 Hyperglycemia 02/04/2021 02/10/2021 Hyponatremia 02/04/2021 02/04/2021 Lightheadedness 02/04/2021 02/04/2021 Malaise and fatigue 02/04/2021 02/05/20 21 Diabetic ulcer of posterior right heel 02/06/2020 08/12/2020 Obesity, Class II, BMI 35-39.9 02/05/2020 02/10/2021 Chest pain 04/01/2017 03/10/2019 Insulin long-term use 08/09/20122018 documented as of this encounter (statuses as of 07/10/2023) [facility] History of Past illness Narrative* Problem Noted Date Diagnosed Date Resolved Date Obesity, Class II, BMI 35-39.9 09/29/2021 09/23/2022 Obesity, Class I, BMI 30-34.9 02/10/2021 03/23/2022 Hyperglycemia 02/04/2021 02/10/2021 Hyponatremia 02/04/2021 02/04/2021 Lightheadedness 02/04/2021 02/04/2021 Malaise and fatigue 02/04/2021 02/05/20 21 Diabetic ulcer of posterior right heel 02/06/2020 08/12/2020 Obesity, Class II, BMI 35-39.9 02/05/2020 02/10/2021 Chest pain 04/01/2017 03/10/2019 Insulin long-term use 08/09/20122018 documented as of this encounter (statuses as of 07/10/2023) [facility] History of Past illness Narrative* Problem Noted Date Diagnosed Date Resolved Date Obesity, Class II, BMI 35-39.9 09/29/2021 09/23/2022 Obesity, Class I, BMI 30-34.9 02/10/2021 03/23/2022 Hyperglycemia 02/04/2021 02/10/2021 Hyponatremia 02/04/2021 02/04/2021 Lightheadedness 02/04/2021 02/04/2021 Malaise and fatigue 02/04/2021 02/05/20 21 Diabetic ulcer of posterior right heel 02/06/2020 08/12/2020 Obesity, Class II, BMI 35-39.9 02/05/2020 02/10/2021 Chest pain 04/01/2017 03/10/2019 Insulin long-term use 08/09/20122018 documented as of this encounter (statuses as of 07/15/2023) [facility] History of Past illness Narrative* Problem Noted Date Diagnosed Date Resolved Date Obesity, Class II, BMI 35-39.9 09/29/2021 09/23/2022 Obesity, Class I, BMI 30-34.9 02/10/2021 03/23/2022 Hyperglycemia 02/04/2021 02/10/2021 Hyponatremia 02/04/2021 02/04/2021 Lightheadedness 02/04/2021 02/04/2021 Malaise and fatigue 02/04/2021 02/05/20 21 Diabetic ulcer of posterior right heel 02/06/2020 08/12/2020 Obesity, Class II, BMI 35-39.9 02/05/2020 02/10/2021 Chest pain 04/01/2017 03/10/2019 Insulin long-term use 08/09/20122018 documented as of this encounter (statuses as of 07/23/2023) [facility] History of Past illness Narrative* Problem Noted Date Diagnosed Date Resolved Date Obesity, Class II, BMI 35-39.9 09/29/2021 09/23/2022 Obesity, Class I, BMI 30-34.9 02/10/2021 03/23/2022 Hyperglycemia 02/04/2021 02/10/2021 Hyponatremia 02/04/2021 02/04/2021 Lightheadedness 02/04/2021 02/04/2021 Malaise and fatigue 02/04/2021 02/05/20 21 Diabetic ulcer of posterior right heel 02/06/2020 08/12/2020 Obesity, Class II, BMI 35-39.9 02/05/2020 02/10/2021 Chest pain 04/01/2017 03/10/2019 Insulin long-term use 08/09/20122018 documented as of this encounter (statuses as of 07/27/2023) [facility] History of Past illness Narrative* Problem Noted Date Diagnosed Date Resolved Date Obesity, Class II, BMI 35-39.9 09/29/2021 09/23/2022 Obesity, Class I, BMI 30-34.9 02/10/2021 03/23/2022 Hyperglycemia 02/04/2021 02/10/2021 Hyponatremia 02/04/2021 02/04/2021 Lightheadedness 02/04/2021 02/04/2021 Malaise and fatigue 02/04/2021 02/05/20 21 Diabetic ulcer of posterior right heel 02/06/2020 08/12/2020 Obesity, Class II, BMI 35-39.9 02/05/2020 02/10/2021 Chest pain 04/01/2017 03/10/2019 Insulin long-term use 08/09/20122018 documented as of this encounter (statuses as of 07/28/2023) [facility] History of Past illness Narrative* Problem Noted Date Diagnosed Date Resolved Date Obesity, Class II, BMI 35-39.9 09/29/2021 09/23/2022 Obesity, Class I, BMI 30-34.9 02/10/2021 03/23/2022 Hyperglycemia 02/04/2021 02/10/2021 Hyponatremia 02/04/2021 02/04/2021 Lightheadedness 02/04/2021 02/04/2021 Malaise and fatigue 02/04/2021 02/05/20 21 Diabetic ulcer of posterior right heel 02/06/2020 08/12/2020 Obesity, Class II, BMI 35-39.9 02/05/2020 02/10/2021 Chest pain 04/01/2017 03/10/2019 Insulin long-term use 08/09/20122018 documented as of this encounter (statuses as of 07/30/2023) [address]24-2022 History of Past illness Narrative* Problem Noted Date Diagnosed Date Resolved Date Obesity, Class II, BMI 35-39.9 09/29/2021 09/23/2022 Obesity, Class I, BMI 30-34.9 02/10/2021 03/23/2022 Hyperglycemia 02/04/2021 02/10/2021 Hyponatremia 02/04/2021 02/04/2021 Lightheadedness 02/04/2021 02/04/2021 Malaise and fatigue 02/04/2021 02/05/20 21 Diabetic ulcer of posterior right heel 02/06/2020 08/12/2020 Obesity, Class II, BMI 35-39.9 02/05/2020 02/10/2021 Chest pain 04/01/2017 03/10/2019 Insulin long-term use 08/09/20122018 documented as of this encounter (statuses as of 07/30/2023) [facility] History of Past illness Narrative* Problem Noted Date Diagnosed Date Resolved Date Obesity, Class II, BMI 35-39.9 09/29/2021 09/23/2022 Obesity, Class I, BMI 30-34.9 02/10/2021 03/23/2022 Hyperglycemia 02/04/2021 02/10/2021 Hyponatremia 02/04/2021 02/04/2021 Lightheadedness 02/04/2021 02/04/2021 Malaise and fatigue 02/04/2021 02/05/20 21 Diabetic ulcer of posterior right heel 02/06/2020 08/12/2020 Obesity, Class II, BMI 35-39.9 02/05/2020 02/10/2021 Chest pain 04/01/2017 03/10/2019 Insulin long-term use 08/09/20122018 documented as of this encounter (statuses as of 08/03/2023) [facility] History of Past illness Narrative* Problem Noted Date Diagnosed Date Resolved Date Obesity, Class II, BMI 35-39.9 09/29/2021 09/23/2022 Obesity, Class I, BMI 30-34.9 02/10/2021 03/23/2022 Hyperglycemia 02/04/2021 02/10/2021 Hyponatremia 02/04/2021 02/04/2021 Lightheadedness 02/04/2021 02/04/2021 Malaise and fatigue 02/04/2021 02/05/20 21 Diabetic ulcer of posterior right heel 02/06/2020 08/12/2020 Obesity, Class II, BMI 35-39.9 02/05/2020 02/10/2021 Chest pain 04/01/2017 03/10/2019 Insulin long-term use 08/09/20122018 documented as of this encounter (statuses as of 08/10/2023) [facility] History of Past illness Narrative* Problem Noted Date Diagnosed Date Resolved Date Obesity, Class II, BMI 35-39.9 09/29/2021 09/23/2022 Obesity, Class I, BMI 30-34.9 02/10/2021 03/23/2022 Hyperglycemia 02/04/2021 02/10/2021 Hyponatremia 02/04/2021 02/04/2021 Lightheadedness 02/04/2021 02/04/2021 Malaise and fatigue 02/04/2021 02/05/20 21 Diabetic ulcer of posterior right heel 02/06/2020 08/12/2020 Obesity, Class II, BMI 35-39.9 02/05/2020 02/10/2021 Chest pain 04/01/2017 03/10/2019 Insulin long-term use 08/09/20122018 documented as of this encounter (statuses as of 08/10/2023) [facility] History of Past illness Narrative* Problem Noted Date Diagnosed Date Resolved Date Obesity, Class II, BMI 35-39.9 09/29/2021 09/23/2022 Obesity, Class I, BMI 30-34.9 02/10/2021 03/23/2022 Hyperglycemia 02/04/2021 02/10/2021 Hyponatremia 02/04/2021 02/04/2021 Lightheadedness 02/04/2021 02/04/2021 Malaise and fatigue 02/04/2021 02/05/20 21 Diabetic ulcer of posterior right heel 02/06/2020 08/12/2020 Obesity, Class II, BMI 35-39.9 02/05/2020 02/10/2021 Chest pain 04/01/2017 03/10/2019 Insulin long-term use 08/09/20122018 documented as of this encounter (statuses as of 08/16/2023) [facility] History of Past illness Narrative* Problem Noted Date Diagnosed Date Resolved Date Obesity, Class II, BMI 35-39.9 09/29/2021 09/23/2022 Obesity, Class I, BMI 30-34.9 02/10/2021 03/23/2022 Hyperglycemia 02/04/2021 02/10/2021 Hyponatremia 02/04/2021 02/04/2021 Lightheadedness 02/04/2021 02/04/2021 Malaise and fatigue 02/04/2021 02/05/20 21 Diabetic ulcer of posterior right heel 02/06/2020 08/12/2020 Obesity, Class II, BMI 35-39.9 02/05/2020 02/10/2021 Chest pain 04/01/2017 03/10/2019 Insulin long-term use 08/09/20122018 documented as of this encounter (statuses as of 08/18/2023) [facility] History of Past illness Narrative* Problem Noted Date Diagnosed Date Resolved Date Obesity, Class II, BMI 35-39.9 09/29/2021 09/23/2022 Obesity, Class I, BMI 30-34.9 02/10/2021 03/23/2022 Hyperglycemia 02/04/2021 02/10/2021 Hyponatremia 02/04/2021 02/04/2021 Lightheadedness 02/04/2021 02/04/2021 Malaise and fatigue 02/04/2021 02/05/20 21 Diabetic ulcer of posterior right heel 02/06/2020 08/12/2020 Obesity, Class II, BMI 35-39.9 02/05/2020 02/10/2021 Chest pain 04/01/2017 03/10/2019 Insulin long-term use 08/09/20122018 documented as of this encounter (statuses as of 10/08/2023) [facility] History of Past illness Narrative* Problem Noted Date Diagnosed Date Resolved Date Obesity, Class II, BMI 35-39.9 09/29/2021 09/23/2022 Obesity, Class I, BMI 30-34.9 02/10/2021 03/23/2022 Hyperglycemia 02/04/2021 02/10/2021 Hyponatremia 02/04/2021 02/04/2021 Lightheadedness 02/04/2021 02/04/2021 Malaise and fatigue 02/04/2021 02/05/20 21 Diabetic ulcer of posterior right heel 02/06/2020 08/12/2020 Obesity, Class II, BMI 35-39.9 02/05/2020 02/10/2021 Chest pain 04/01/2017 03/10/2019 Insulin long-term use 08/09/20122018 documented as of this encounter (statuses as of 11/01/2023) [facility] History of Past illness Narrative* Problem Noted Date Diagnosed Date Resolved Date Obesity, Class II, BMI 35-39.9 09/29/2021 09/23/2022 Obesity, Class I, BMI 30-34.9 02/10/2021 03/23/2022 Hyperglycemia 02/04/2021 02/10/2021 Hyponatremia 02/04/2021 02/04/2021 Lightheadedness 02/04/2021 02/04/2021 Malaise and fatigue 02/04/2021 02/05/20 21 Diabetic ulcer of posterior right heel 02/06/2020 08/12/2020 Obesity, Class II, BMI 35-39.9 02/05/2020 02/10/2021 Chest pain 04/01/2017 03/10/2019 Insulin long-term use 08/09/20122018 documented as of this encounter (statuses as of 11/04/2023) [facility] History of Past illness Narrative* Problem Noted Date Diagnosed Date Resolved Date Obesity, Class II, BMI 35-39.9 09/29/2021 09/23/2022 Obesity, Class I, BMI 30-34.9 02/10/2021 03/23/2022 Hyperglycemia 02/04/2021 02/10/2021 Hyponatremia 02/04/2021 02/04/2021 Lightheadedness 02/04/2021 02/04/2021 Malaise and fatigue 02/04/2021 02/05/20 21 Diabetic ulcer of posterior right heel 02/06/2020 08/12/2020 Obesity, Class II, BMI 35-39.9 02/05/2020 02/10/2021 Chest pain 04/01/2017 03/10/2019 Insulin long-term use 08/09/20122018 documented as of this encounter (statuses as of 11/17/2023) [facility] History of Past illness Narrative* Problem Noted Date Diagnosed Date Resolved Date Obesity, Class II, BMI 35-39.9 09/29/2021 09/23/2022 Obesity, Class I, BMI 30-34.9 02/10/2021 03/23/2022 Hyperglycemia 02/04/2021 02/10/2021 Hyponatremia 02/04/2021 02/04/2021 Lightheadedness 02/04/2021 02/04/2021 Malaise and fatigue 02/04/2021 02/05/20 21 Diabetic ulcer of posterior right heel 02/06/2020 08/12/2020 Obesity, Class II, BMI 35-39.9 02/05/2020 02/10/2021 Chest pain 04/01/2017 03/10/2019 Insulin long-term use 08/09/20122018 documented as of this encounter (statuses as of 11/25/2023) [facility] History of Past illness Narrative* Problem Noted Date Diagnosed Date Resolved Date Obesity, Class II, BMI 35-39.9 09/29/2021 09/23/2022 Obesity, Class I, BMI 30-34.9 02/10/2021 03/23/2022 Hyperglycemia 02/04/2021 02/10/2021 Hyponatremia 02/04/2021 02/04/2021 Lightheadedness 02/04/2021 02/04/2021 Malaise and fatigue 02/04/2021 02/05/20 21 Diabetic ulcer of posterior right heel 02/06/2020 08/12/2020 Obesity, Class II, BMI 35-39.9 02/05/2020 02/10/2021 Chest pain 04/01/2017 03/10/2019 Insulin long-term use 08/09/20122018 documented as of this encounter (statuses as of 11/25/2023) [facility] History of Past illness Narrative* Problem Noted Date Diagnosed Date Resolved Date Obesity, Class II, BMI 35-39.9 09/29/2021 09/23/2022 Obesity, Class I, BMI 30-34.9 02/10/2021 03/23/2022 Hyperglycemia 02/04/2021 02/10/2021 Hyponatremia 02/04/2021 02/04/2021 Lightheadedness 02/04/2021 02/04/2021 Malaise and fatigue 02/04/2021 02/05/20 21 Diabetic ulcer of posterior right heel 02/06/2020 08/12/2020 Obesity, Class II, BMI 35-39.9 02/05/2020 02/10/2021 Chest pain 04/01/2017 03/10/2019 Insulin long-term use 08/09/20122018 documented as of this encounter (statuses as of 11/29/2023) [facility] History of Past illness Narrative* Problem Noted Date Diagnosed Date Resolved Date Obesity, Class II, BMI 35-39.9 09/29/2021 09/23/2022 Obesity, Class I, BMI 30-34.9 02/10/2021 03/23/2022 Hyperglycemia 02/04/2021 02/10/2021 Hyponatremia 02/04/2021 02/04/2021 Lightheadedness 02/04/2021 02/04/2021 Malaise and fatigue 02/04/2021 02/05/20 21 Diabetic ulcer of posterior right heel 02/06/2020 08/12/2020 Obesity, Class II, BMI 35-39.9 02/05/2020 02/10/2021 Chest pain 04/01/2017 03/10/2019 Insulin long-term use 08/09/20122018 documented as of this encounter (statuses as of 12/07/2023) [facility] History of Past illness Narrative* Problem Noted Date Diagnosed Date Resolved Date Obesity, Class II, BMI 35-39.9 09/29/2021 09/23/2022 Obesity, Class I, BMI 30-34.9 02/10/2021 03/23/2022 Hyperglycemia 02/04/2021 02/10/2021 Hyponatremia 02/04/2021 02/04/2021 Lightheadedness 02/04/2021 02/04/2021 Malaise and fatigue 02/04/2021 02/05/20 21 Diabetic ulcer of posterior right heel 02/06/2020 08/12/2020 Obesity, Class II, BMI 35-39.9 02/05/2020 02/10/2021 Chest pain 04/01/2017 03/10/2019 Insulin long-term use 08/09/20122018 documented as of this encounter (statuses as of 12/15/2023) [facility] History of Past illness Narrative* Problem Noted Date Diagnosed Date Resolved Date Obesity, Class II, BMI 35-39.9 09/29/2021 09/23/2022 Obesity, Class I, BMI 30-34.9 02/10/2021 03/23/2022 Hyperglycemia 02/04/2021 02/10/2021 Hyponatremia 02/04/2021 02/04/2021 Lightheadedness 02/04/2021 02/04/2021 Malaise and fatigue 02/04/2021 02/05/20 21 Diabetic ulcer of posterior right heel 02/06/2020 08/12/2020 Obesity, Class II, BMI 35-39.9 02/05/2020 02/10/2021 Chest pain 04/01/2017 03/10/2019 Insulin long-term use 08/09/20122018 documented as of this encounter (statuses as of 12/17/2023) [facility] History of Past illness Narrative* Problem Noted Date Diagnosed Date Resolved Date Obesity, Class II, BMI 35-39.9 09/29/2021 09/23/2022 Obesity, Class I, BMI 30-34.9 02/10/2021 03/23/2022 Hyperglycemia 02/04/2021 02/10/2021 Hyponatremia 02/04/2021 02/04/2021 Lightheadedness 02/04/2021 02/04/2021 Malaise and fatigue 02/04/2021 02/05/20 21 Diabetic ulcer of posterior right heel 02/06/2020 08/12/2020 Obesity, Class II, BMI 35-39.9 02/05/2020 02/10/2021 Chest pain 04/01/2017 03/10/2019 Insulin long-term use 08/09/20122018 documented as of this encounter (statuses as of 12/23/2023) [facility] History of Past illness Narrative* Problem Noted Date Diagnosed Date Resolved Date Obesity, Class II, BMI 35-39.9 09/29/2021 09/23/2022 Obesity, Class I, BMI 30-34.9 02/10/2021 03/23/2022 Hyperglycemia 02/04/2021 02/10/2021 Hyponatremia 02/04/2021 02/04/2021 Lightheadedness 02/04/2021 02/04/2021 Malaise and fatigue 02/04/2021 02/05/20 21 Diabetic ulcer of posterior right heel 02/06/2020 08/12/2020 Obesity, Class II, BMI 35-39.9 02/05/2020 02/10/2021 Chest pain 04/01/2017 03/10/2019 Insulin long-term use 08/09/20122018 documented as of this encounter (statuses as of 12/10/2023) [facility] History of Past illness Narrative* Problem Noted Date Resolved Date Obesity, Class I, BMI 30-34.9 02/10/2021 Hyperglycemia 02/04/2021 02/10/2021 Hyponatremia 02/04/2021 02/04/2021 Lightheadedness 02/04/2021 02/04/2021 Malaise and fatigue 02/04/2021 02/04/2021 Diabetic ulcer of posterior right heel 0 08/12/2020 Obesity, Class II, BMI 35-39.9 02/05/2020 0 02/10/2021 Chest pain 04/01/2017 03/10/2019 Insulin long-term use 08/09/2012 12/12/2018 documented as of this encounter (statuses as of 03/24/2022) [facility] History of Past illness Narrative* Problem Noted Date Resolved Date Obesity, Class I, BMI 30-34.9 02/10/2021 Hyperglycemia 02/04/2021 02/10/2021 Hyponatremia 02/04/2021 02/04/2021 Lightheadedness 02/04/2021 02/04/2021 Malaise and fatigue 02/04/2021 02/04/2021 Diabetic ulcer of posterior right heel 0 08/12/2020 Obesity, Class II, BMI 35-39.9 02/05/2020 0 02/10/2021 Chest pain 04/01/2017 03/10/2019 Insulin long-term use 08/09/2012 12/12/2018 documented as of this encounter (statuses as of 03/25/2022) [facility] History of Past illness Narrative* Problem Noted Date Resolved Date Obesity, Class I, BMI 30-34.9 02/10/2021 Hyperglycemia 02/04/2021 02/10/2021 Hyponatremia 02/04/2021 02/04/2021 Lightheadedness 02/04/2021 02/04/2021 Malaise and fatigue 02/04/2021 02/04/2021 Diabetic ulcer of posterior right heel 0 08/12/2020 Obesity, Class II, BMI 35-39.9 02/05/2020 0 02/10/2021 Chest pain 04/01/2017 03/10/2019 Insulin long-term use 08/09/2012 12/12/2018 documented as of this encounter (statuses as of 04/07/2022) [facility] History of Past illness Narrative* Problem Noted Date Resolved Date Obesity, Class I, BMI 30-34.9 02/10/2021 Hyperglycemia 02/04/2021 02/10/2021 Hyponatremia 02/04/2021 02/04/2021 Lightheadedness 02/04/2021 02/04/2021 Malaise and fatigue 02/04/2021 02/04/2021 Diabetic ulcer of posterior right heel 0 08/12/2020 Obesity, Class II, BMI 35-39.9 02/05/2020 0 02/10/2021 Chest pain 04/01/2017 03/10/2019 Insulin long-term use 08/09/2012 12/12/2018 documented as of this encounter (statuses as of 04/22/2022) [facility] History of Past illness Narrative* Problem Noted Date Resolved Date Obesity, Class I, BMI 30-34.9 02/10/2021 Hyperglycemia 02/04/2021 02/10/2021 Hyponatremia 02/04/2021 02/04/2021 Lightheadedness 02/04/2021 02/04/2021 Malaise and fatigue 02/04/2021 02/04/2021 Diabetic ulcer of posterior right heel 0 08/12/2020 Obesity, Class II, BMI 35-39.9 02/05/2020 0 02/10/2021 Chest pain 04/01/2017 03/10/2019 Insulin long-term use 08/09/2012 12/12/2018 documented as of this encounter (statuses as of 05/05/2022) [facility] History of Past illness Narrative* Problem Noted Date Resolved Date Obesity, Class I, BMI 30-34.9 02/10/2021 Hyperglycemia 02/04/2021 02/10/2021 Hyponatremia 02/04/2021 02/04/2021 Lightheadedness 02/04/2021 02/04/2021 Malaise and fatigue 02/04/2021 02/04/2021 Diabetic ulcer of posterior right heel 0 08/12/2020 Obesity, Class II, BMI 35-39.9 02/05/2020 0 02/10/2021 Chest pain 04/01/2017 03/10/2019 Insulin long-term use 08/09/2012 12/12/2018 documented as of this encounter (statuses as of 05/13/2022) [facility] History of Past illness Narrative* Problem Noted Date Resolved Date Obesity, Class I, BMI 30-34.9 02/10/2021 Hyperglycemia 02/04/2021 02/10/2021 Hyponatremia 02/04/2021 02/04/2021 Lightheadedness 02/04/2021 02/04/2021 Malaise and fatigue 02/04/2021 02/04/2021 Diabetic ulcer of posterior right heel 0 08/12/2020 Obesity, Class II, BMI 35-39.9 02/05/2020 0 02/10/2021 Chest pain 04/01/2017 03/10/2019 Insulin long-term use 08/09/2012 12/12/2018 documented as of this encounter (statuses as of 05/13/2022) [facility] History of Past illness Narrative* Problem Noted Date Resolved Date Obesity, Class I, BMI 30-34.9 02/10/2021 Hyperglycemia 02/04/2021 02/10/2021 Hyponatremia 02/04/2021 02/04/2021 Lightheadedness 02/04/2021 02/04/2021 Malaise and fatigue 02/04/2021 02/04/2021 Diabetic ulcer of posterior right heel 0 08/12/2020 Obesity, Class II, BMI 35-39.9 02/05/2020 0 02/10/2021 Chest pain 04/01/2017 03/10/2019 Insulin long-term use 08/09/2012 12/12/2018 documented as of this encounter (statuses as of 05/14/2022) [facility] History of Past illness Narrative* Problem Noted Date Resolved Date Obesity, Class I, BMI 30-34.9 02/10/2021 Hyperglycemia 02/04/2021 02/10/2021 Hyponatremia 02/04/2021 02/04/2021 Lightheadedness 02/04/2021 02/04/2021 Malaise and fatigue 02/04/2021 02/04/2021 Diabetic ulcer of posterior right heel 0 08/12/2020 Obesity, Class II, BMI 35-39.9 02/05/2020 0 02/10/2021 Chest pain 04/01/2017 03/10/2019 Insulin long-term use 08/09/2012 12/12/2018 documented as of this encounter (statuses as of 05/19/2022) [facility] of Past illness Narrative* Problem Noted Date Resolved Date Obesity, Class I, BMI 30-34.9 02/10/2021 Hyperglycemia 02/04/2021 02/10/2021 Hyponatremia 02/04/2021 02/04/2021 Lightheadedness 02/04/2021 02/04/2021 Malaise and fatigue 02/04/2021 02/04/2021 Diabetic ulcer of posterior right heel 0 08/12/2020 Obesity, Class II, BMI 35-39.9 02/05/2020 0 02/10/2021 Chest pain 04/01/2017 03/10/2019 Insulin long-term use 08/09/2012 12/12/2018 documented as of this encounter (statuses as of 05/21/2022) [facility] History of Past illness Narrative* Problem Noted Date Resolved Date Obesity, Class I, BMI 30-34.9 02/10/2021 Hyperglycemia 02/04/2021 02/10/2021 Hyponatremia 02/04/2021 02/04/2021 Lightheadedness 02/04/2021 02/04/2021 Malaise and fatigue 02/04/2021 02/04/2021 Diabetic ulcer of posterior right heel 0 08/12/2020 Obesity, Class II, BMI 35-39.9 02/05/2020 0 02/10/2021 Chest pain 04/01/2017 03/10/2019 Insulin long-term use 08/09/2012 12/12/2018 documented as of this encounter (statuses as of 05/30/2022) [facility]21 History of Past illness Narrative* Problem Noted Date Resolved Date Obesity, Class I, BMI 30-34.9 02/10/2021 Hyperglycemia 02/04/2021 02/10/2021 Hyponatremia 02/04/2021 02/04/2021 Lightheadedness 02/04/2021 02/04/2021 Malaise and fatigue 02/04/2021 02/04/2021 Diabetic ulcer of posterior right heel 0 08/12/2020 Obesity, Class II, BMI 35-39.9 02/05/2020 0 02/10/2021 Chest pain 04/01/2017 03/10/2019 Insulin long-term use 08/09/2012 12/12/2018 documented as of this encounter (statuses as of 06/03/2022) [facility]21 History of Past illness Narrative* Problem Noted Date Resolved Date Obesity, Class I, BMI 30-34.9 02/10/2021 Hyperglycemia 02/04/2021 02/10/2021 Hyponatremia 02/04/2021 02/04/2021 Lightheadedness 02/04/2021 02/04/2021 Malaise and fatigue 02/04/2021 02/04/2021 Diabetic ulcer of posterior right heel 0 08/12/2020 Obesity, Class II, BMI 35-39.9 02/05/2020 0 02/10/2021 Chest pain 04/01/2017 03/10/2019 Insulin long-term use 08/09/2012 12/12/2018 documented as of this encounter (statuses as of 06/24/2022) [facility] History of Past illness Narrative* Problem Noted Date Resolved Date Obesity, Class I, BMI 30-34.9 02/10/2021 Hyperglycemia 02/04/2021 02/10/2021 Hyponatremia 02/04/2021 02/04/2021 Lightheadedness 02/04/2021 02/04/2021 Malaise and fatigue 02/04/2021 02/04/2021 Diabetic ulcer of posterior right heel 0 08/12/2020 Obesity, Class II, BMI 35-39.9 02/05/2020 0 02/10/2021 Chest pain 04/01/2017 03/10/2019 Insulin long-term use 08/09/2012 12/12/2018 documented as of this encounter (statuses as of 06/29/2022) [facility] History of Past illness Narrative* Problem Noted Date Resolved Date Obesity, Class I, BMI 30-34.9 02/10/2021 Hyperglycemia 02/04/2021 02/10/2021 Hyponatremia 02/04/2021 02/04/2021 Lightheadedness 02/04/2021 02/04/2021 Malaise and fatigue 02/04/2021 02/04/2021 Diabetic ulcer of posterior right heel 0 08/12/2020 Obesity, Class II, BMI 35-39.9 02/05/2020 0 02/10/2021 Chest pain 04/01/2017 03/10/2019 Insulin long-term use 08/09/2012 12/12/2018 documented as of this encounter (statuses as of 07/06/2022) [facility] History of Past illness Narrative* Problem Noted Date Resolved Date Obesity, Class I, BMI 30-34.9 02/10/2021 Hyperglycemia 02/04/2021 02/10/2021 Hyponatremia 02/04/2021 02/04/2021 Lightheadedness 02/04/2021 02/04/2021 Malaise and fatigue 02/04/2021 02/04/2021 Diabetic ulcer of posterior right heel 0 08/12/2020 Obesity, Class II, BMI 35-39.9 02/05/2020 0 02/10/2021 Chest pain 04/01/2017 03/10/2019 Insulin long-term use 08/09/2012 12/12/2018 documented as of this encounter (statuses as of 07/13/2022) [facility] History of Past illness Narrative* Problem Noted Date Resolved Date Obesity, Class I, BMI 30-34.9 02/10/2021 Hyperglycemia 02/04/2021 02/10/2021 Hyponatremia 02/04/2021 02/04/2021 Lightheadedness 02/04/2021 02/04/2021 Malaise and fatigue 02/04/2021 02/04/2021 Diabetic ulcer of posterior right heel 0 08/12/2020 Obesity, Class II, BMI 35-39.9 02/05/2020 0 02/10/2021 Chest pain 04/01/2017 03/10/2019 Insulin long-term use 08/09/2012 12/12/2018 documented as of this encounter (statuses as of 07/18/2022) [address]-2021 History of Past illness Narrative* Problem Noted Date Resolved Date Obesity, Class I, BMI 30-34.9 02/10/2021 Hyperglycemia 02/04/2021 02/10/2021 Hyponatremia 02/04/2021 02/04/2021 Lightheadedness 02/04/2021 02/04/2021 Malaise and fatigue 02/04/2021 02/04/2021 Diabetic ulcer of posterior right heel 0 08/12/2020 Obesity, Class II, BMI 35-39.9 02/05/2020 0 02/10/2021 Chest pain 04/01/2017 03/10/2019 Insulin long-term use 08/09/2012 12/12/2018 documented as of this encounter (statuses as of 08/07/2022) [facility] History of Past illness Narrative* Problem Noted Date Resolved Date Obesity, Class I, BMI 30-34.9 02/10/2021 Hyperglycemia 02/04/2021 02/10/2021 Hyponatremia 02/04/2021 02/04/2021 Lightheadedness 02/04/2021 02/04/2021 Malaise and fatigue 02/04/2021 02/04/2021 Diabetic ulcer of posterior right heel 0 08/12/2020 Obesity, Class II, BMI 35-39.9 02/05/2020 0 02/10/2021 Chest pain 04/01/2017 03/10/2019 Insulin long-term use 08/09/2012 12/12/2018 documented as of this encounter (statuses as of 08/17/2022) [facility] History of Past illness Narrative* Problem Noted Date Resolved Date Obesity, Class I, BMI 30-34.9 02/10/2021 Hyperglycemia 02/04/2021 02/10/2021 Hyponatremia 02/04/2021 02/04/2021 Lightheadedness 02/04/2021 02/04/2021 Malaise and fatigue 02/04/2021 02/04/2021 Diabetic ulcer of posterior right heel 0 08/12/2020 Obesity, Class II, BMI 35-39.9 02/05/2020 0 02/10/2021 Chest pain 04/01/2017 03/10/2019 Insulin long-term use 08/09/2012 12/12/2018 documented as of this encounter (statuses as of 08/20/2022) [facility] History of Past illness Narrative* Problem Noted Date Resolved Date Obesity, Class I, BMI 30-34.9 02/10/2021 Hyperglycemia 02/04/2021 02/10/2021 Hyponatremia 02/04/2021 02/04/2021 Lightheadedness 02/04/2021 02/04/2021 Malaise and fatigue 02/04/2021 02/04/2021 Diabetic ulcer of posterior right heel 0 08/12/2020 Obesity, Class II, BMI 35-39.9 02/05/2020 0 02/10/2021 Chest pain 04/01/2017 03/10/2019 Insulin long-term use 08/09/2012 12/12/2018 documented as of this encounter (statuses as of 08/21/2022) [facility] History of Past illness Narrative* Problem Noted Date Resolved Date Obesity, Class I, BMI 30-34.9 02/10/2021 Hyperglycemia 02/04/2021 02/10/2021 Hyponatremia 02/04/2021 02/04/2021 Lightheadedness 02/04/2021 02/04/2021 Malaise and fatigue 02/04/2021 02/04/2021 Diabetic ulcer of posterior right heel 0 08/12/2020 Obesity, Class II, BMI 35-39.9 02/05/2020 0 02/10/2021 Chest pain 04/01/2017 03/10/2019 Insulin long-term use 08/09/2012 12/12/2018 documented as of this encounter (statuses as of 08/21/2022) [facility] History of Past illness Narrative* Problem Noted Date Resolved Date Obesity, Class I, BMI 30-34.9 02/10/2021 Hyperglycemia 02/04/2021 02/10/2021 Hyponatremia 02/04/2021 02/04/2021 Lightheadedness 02/04/2021 02/04/2021 Malaise and fatigue 02/04/2021 02/04/2021 Diabetic ulcer of posterior right heel 0 08/12/2020 Obesity, Class II, BMI 35-39.9 02/05/2020 0 02/10/2021 Chest pain 04/01/2017 03/10/2019 Insulin long-term use 08/09/2012 12/12/2018 documented as of this encounter (statuses as of 08/24/2022) [facility] History of Past illness Narrative* Problem Noted Date Resolved Date Obesity, Class I, BMI 30-34.9 02/10/2021 Hyperglycemia 02/04/2021 02/10/2021 Hyponatremia 02/04/2021 02/04/2021 Lightheadedness 02/04/2021 02/04/2021 Malaise and fatigue 02/04/2021 02/04/2021 Diabetic ulcer of posterior right heel 0 08/12/2020 Obesity, Class II, BMI 35-39.9 02/05/2020 0 02/10/2021 Chest pain 04/01/2017 03/10/2019 Insulin long-term use 08/09/2012 12/12/2018 documented as of this encounter (statuses as of 09/16/2022) [facility] History of Past illness Narrative* Problem Noted Date Resolved Date Obesity, Class I, BMI 30-34.9 02/10/2021 Hyperglycemia 02/04/2021 02/10/2021 Hyponatremia 02/04/2021 02/04/2021 Lightheadedness 02/04/2021 02/04/2021 Malaise and fatigue 02/04/2021 02/04/2021 Diabetic ulcer of posterior right heel 0 08/12/2020 Obesity, Class II, BMI 35-39.9 02/05/2020 0 02/10/2021 Chest pain 04/01/2017 03/10/2019 Insulin long-term use 08/09/2012 12/12/2018 documented as of this encounter (statuses as of 09/18/2022) [facility] History of Past illness Narrative* Problem Noted Date Resolved Date Obesity, Class I, BMI 30-34.9 02/10/2021 Hyperglycemia 02/04/2021 02/10/2021 Hyponatremia 02/04/2021 02/04/2021 Lightheadedness 02/04/2021 02/04/2021 Malaise and fatigue 02/04/2021 02/04/2021 Diabetic ulcer of posterior right heel 0 08/12/2020 Obesity, Class II, BMI 35-39.9 02/05/2020 0 02/10/2021 Chest pain 04/01/2017 03/10/2019 Insulin long-term use 08/09/2012 12/12/2018 documented as of this encounter (statuses as of 09/22/2022) [facility] History of Past illness Narrative* Problem Noted Date Resolved Date Hyperglycemia 02/04/2021 02/10/2021 Hyponatremia 02/04/2021 02/04/2021 Lightheadedness 02/04/2021 02/04/2021 Malaise and fatigue 02/04/2021 02/04/2021 Diabetic ulcer of posterior right heel 0 08/12/2020 Obesity, Class II, BMI 35-39.9 02/05/2020 0 02/10/2021 Chest pain 04/01/2017 03/10/2019 Insulin long-term use 08/09/2012 12/12/2018 documented as of this encounter (statuses as of 12/17/2021) [facility] History of Past illness Narrative* Problem Noted Date Resolved Date Hyperglycemia 02/04/2021 02/10/2021 Hyponatremia 02/04/2021 02/04/2021 Lightheadedness 02/04/2021 02/04/2021 Malaise and fatigue 02/04/2021 02/04/2021 Diabetic ulcer of posterior right heel 0 08/12/2020 Obesity, Class II, BMI 35-39.9 02/05/2020 0 02/10/2021 Chest pain 04/01/2017 03/10/2019 Insulin long-term use 08/09/2012 12/12/2018 documented as of this encounter (statuses as of 01/14/2022) [facility] History of Past illness Narrative* Problem Noted Date Resolved Date Hyperglycemia 02/04/2021 02/10/2021 Hyponatremia 02/04/2021 02/04/2021 Lightheadedness 02/04/2021 02/04/2021 Malaise and fatigue 02/04/2021 02/04/2021 Diabetic ulcer of posterior right heel 0 08/12/2020 Obesity, Class II, BMI 35-39.9 02/05/2020 0 02/10/2021 Chest pain 04/01/2017 03/10/2019 Insulin long-term use 08/09/2012 12/12/2018 documented as of this encounter (statuses as of 01/26/2022) [facility] History of Past illness Narrative* Problem Noted Date Resolved Date Hyperglycemia 02/04/2021 02/10/2021 Hyponatremia 02/04/2021 02/04/2021 Lightheadedness 02/04/2021 02/04/2021 Malaise and fatigue 02/04/2021 02/04/2021 Diabetic ulcer of posterior right heel 0 08/12/2020 Obesity, Class II, BMI 35-39.9 02/05/2020 0 02/10/2021 Chest pain 04/01/2017 03/10/2019 Insulin long-term use 08/09/2012 12/12/2018 documented as of this encounter (statuses as of 01/30/2022) [facility] History of Past illness Narrative* Problem Noted Date Resolved Date Hyperglycemia 02/04/2021 02/10/2021 Hyponatremia 02/04/2021 02/04/2021 Lightheadedness 02/04/2021 02/04/2021 Malaise and fatigue 02/04/2021 02/04/2021 Diabetic ulcer of posterior right heel 0 08/12/2020 Obesity, Class II, BMI 35-39.9 02/05/2020 0 02/10/2021 Chest pain 04/01/2017 03/10/2019 Insulin long-term use 08/09/2012 12/12/2018 documented as of this encounter (statuses as of 02/07/2022) [facility] History of Past illness Narrative* Problem Noted Date Resolved Date Hyperglycemia 02/04/2021 02/10/2021 Hyponatremia 02/04/2021 02/04/2021 Lightheadedness 02/04/2021 02/04/2021 Malaise and fatigue 02/04/2021 02/04/2021 Diabetic ulcer of posterior right heel 0 08/12/2020 Obesity, Class II, BMI 35-39.9 02/05/2020 0 02/10/2021 Chest pain 04/01/2017 03/10/2019 Insulin long-term use 08/09/2012 12/12/2018 documented as of this encounter (statuses as of 02/12/2022) [facility] History of Past illness Narrative* Problem Noted Date Resolved Date Hyperglycemia 02/04/2021 02/10/2021 Hyponatremia 02/04/2021 02/04/2021 Lightheadedness 02/04/2021 02/04/2021 Malaise and fatigue 02/04/2021 02/04/2021 Diabetic ulcer of posterior right heel 0 08/12/2020 Obesity, Class II, BMI 35-39.9 02/05/2020 0 02/10/2021 Chest pain 04/01/2017 03/10/2019 Insulin long-term use 08/09/2012 12/12/2018 documented as of this encounter (statuses as of 02/23/2022) [facility] History of Past illness Narrative* Problem Noted Date Resolved Date Hyperglycemia 02/04/2021 02/10/2021 Hyponatremia 02/04/2021 02/04/2021 Lightheadedness 02/04/2021 02/04/2021 Malaise and fatigue 02/04/2021 02/04/2021 Diabetic ulcer of posterior right heel 0 08/12/2020 Obesity, Class II, BMI 35-39.9 02/05/2020 0 02/10/2021 Chest pain 04/01/2017 03/10/2019 Insulin long-term use 08/09/2012 12/12/2018 documented as of this encounter (statuses as of 03/01/2022) [facility] History of Past illness Narrative* Problem Noted Date Resolved Date Hyperglycemia 02/04/2021 02/10/2021 Hyponatremia 02/04/2021 02/04/2021 Lightheadedness 02/04/2021 02/04/2021 Malaise and fatigue 02/04/2021 02/04/2021 Diabetic ulcer of posterior right heel 0 08/12/2020 Obesity, Class II, BMI 35-39.9 02/05/2020 0 02/10/2021 Chest pain 04/01/2017 03/10/2019 Insulin long-term use 08/09/2012 12/12/2018 documented as of this encounter (statuses as of 03/06/2022) [facility] History of Past illness Narrative* Problem Noted Date Resolved Date Hyperglycemia 02/04/2021 02/10/2021 Hyponatremia 02/04/2021 02/04/2021 Lightheadedness 02/04/2021 02/04/2021 Malaise and fatigue 02/04/2021 02/04/2021 Diabetic ulcer of posterior right heel 0 08/12/2020 Obesity, Class II, BMI 35-39.9 02/05/2020 0 02/10/2021 Chest pain 04/01/2017 03/10/2019 Insulin long-term use 08/09/2012 12/12/2018 documented as of this encounter (statuses as of 03/16/2022) [facility] History of Past illness Narrative* Problem Noted Date Resolved Date Hyperglycemia 02/04/2021 02/10/2021 Hyponatremia 02/04/2021 02/04/2021 Lightheadedness 02/04/2021 02/04/2021 Malaise and fatigue 02/04/2021 02/04/2021 Diabetic ulcer of posterior right heel 0 08/12/2020 Obesity, Class II, BMI 35-39.9 02/05/2020 0 02/10/2021 Chest pain 04/01/2017 03/10/2019 Insulin long-term use 08/09/2012 12/12/2018 documented as of this encounter (statuses as of 03/17/2022) [facility] History of Present illness Narrative* FUV for diabetes, blood work and discuss Librea 14 for blood sugars. * Shade is a 61 year old female presenting for a follow up on diabetes and blood work. * - Pt has not seen me since 08/2020- and it was only for a Rx Valium for a MRI she was having; priorto that ov she was last seen 09/2019 * - Sees Dr. Cerrato for diabetes - insulin was changed but she has not followed up since (reportslast appt was in March) * - I never know what doctors to go to. * - She has not seen Dr. Cerrato since March 2021 * - She claims to have been under the impression that she had to come to her PCP for everything and offers this as the reason she has not followed up with Dr. Cerrato regarding obtaining FreeStyle Gemma. * - States she came here today to get Gemma 14 for blood sugars and to have blood work done - She feels that Gemma 14 will be of great help to her. * - Had an episode of SOB and lower extremity edema on 09/05/2021 - states she called on-call doctor,Dr. London on 09/06/2021. Pt was upset that the doctor did not advise her definitively what to do like if she should go to ther ER. She also consulted her friend who she states is an RN - this friend advised her to go to ER. She ultimately did not end up going to ER and states she got progressively better over the days following the episode. She did call my office on 09/08/21 and was told to go to ERfor further evaluation of her shortness of breath and leg edema. (she was hesitant to go due to COVID and long wait times). * - She becomes upset/agitated - upset she has waiting a month for this appointment and I can't help her. * - She claims I try to do what I am supposed to do but nobody helps me. * - She also states I never like to come here because I have to wait forever to be seen. * - She expresses a desire to talk to the office manage today. (I offered her the option to talk to the radio officer) [facility] Work Phone: Evaluation note* Diagnosis PVD (peripheral vascular disease) (HCC)- Primary Peripheral vascular disease, unspecified Venous stasis ulcer of ankle limited to breakdown of skin, unspecified laterality, 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 varicose veins present ([facility]) [facility] Wound infection- Primary Posttraumatic wound infection not elsewhere classified [facility] Diagnosis Venous stasis ulcers of both lower extremities (HCC)- Primary Peripheral artery disease (HCC) Peripheral vascular disease, unspecified Venous insufficiency Unspecified venous (peripheral) insufficiency Multiple open wounds of left lower extremity, subsequent encounter Multiple open wounds of right lower extremity, subsequent encounter [facility] Diagnosis Venous stasis ulcers of both lower extremities (HCC)- Primary Peripheral artery disease (HCC) Peripheral vascular disease, unspecified Venous insufficiency Unspecified venous (peripheral) insufficiency Multiple open wounds of left lower extremity, subsequent encounter Multiple open wounds of right lower extremity, subsequent encounter [facility] Diagnosis Venous stasis ulcer of right ankle limited to breakdown of skin, 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 varicose veins present ([facility])- Primary [facility] Diagnosis Venous stasis ulcers of both lower extremities (HCC)- Primary Peripheral artery disease (HCC) Peripheral vascular disease, unspecified Venous insufficiency Unspecified venous (peripheral) insufficiency Multiple open wounds of left lower extremity, subsequent encounter Multiple open wounds of right lower extremity, subsequent encounter [facility] Diagnosis Venous stasis ulcers of both lower extremities (HCC)- Primary Peripheral artery disease (HCC) Peripheral vascular disease, unspecified Venous insufficiency Unspecified venous (peripheral) insufficiency Multiple open wounds of left lower extremity, subsequent encounter Multiple open wounds of right lower extremity, subsequent encounter [facility] Diagnosis 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, with long-term current use of insulin ([facility])- Primary Albuminuria Proteinuria Obesity, Class II, BMI 35-39.9 Obesity, unspecified Mixed hyperlipidemia Primary hypertension Unspecified essential hypertension [facility] Diagnosis Venous stasis ulcer of right ankle limited to breakdown of skin, 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 varicose veins present ([facility])- Primary [facility] Diagnosis Chronic heart failure with preserved ejection fraction ([facility])- Primary Primary hypertension Unspecified essential hypertension Mixed hyperlipidemia 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, with long-term current use of insulin (HCC) Venous stasis ulcers of both lower extremities (HCC) Abnormal ankle brachial index ([facility]) Abnormal electrocardiogram Nonspecific abnormal electrocardiogram (ECG) (EKG) LENTZ (dyspnea on exertion) Other dyspnea and respiratory abnormality [facility] Diagnosis Chronic heart failure with preserved ejection fraction (HCC) Primary hypertension Unspecified essential hypertension Mixed hyperlipidemia 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, with long-term current use of insulin (HCC) Venous stasis ulcers of both lower extremities (HCC) Abnormal ankle brachial index ([facility]) Abnormal electrocardiogram Nonspecific abnormal electrocardiogram (ECG) (EKG) [facility] Diagnosis Obesity, Class I, BMI 30-34.9- Primary Obesity, unspecified 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, with long-term current use of insulin ([facility]) Dietary counseling Dietary surveillance and counseling [facility] Diagnosis Chronic heart failure with preserved ejection fraction (HCC)- Primary Primary hypertension Unspecified essential hypertension Mixed hyperlipidemia [facility] Diagnosis Chronic heart failure with preserved ejection fraction (HCC)- Primary NELLY (obstructive sleep apnea) Obstructive sleep apnea (adult) (pediatric) LVH (left ventricular hypertrophy) Cardiomegaly Primary hypertension Unspecified essential hypertension Mixed hyperlipidemia LENTZ (dyspnea on exertion) Other dyspnea and respiratory abnormality [facility] Diagnosis Mixed hyperlipidemia [facility] Diagnosis Screening for colon cancer- Primary Special screening for malignant neoplasms, colon Other specified nutritional anemias Hypertension, essential Unspecified essential hypertension [facility] Diagnosis Chronic heart failure with preserved ejection fraction (HCC)- Primary Primary hypertension Unspecified essential hypertension Mixed hyperlipidemia [facility] Diagnosis Encounter for screening mammogram for breast cancer [facility] Diagnosis 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, with long-term current use of insulin (HCC)- Primary B12 deficiency Other B-complex deficiencies Mixed hyperlipidemia Primary hypertension Unspecified essential hypertension Vitamin D deficiency Unspecified vitamin D deficiency Albuminuria Proteinuria Obesity, Class I, BMI 30-34.9 Obesity, unspecified [facility] Diagnosis Injury of finger of left hand, initial encounter- Primary [facility]* Diagnosis 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, with long-term current use of insulin (HCC)- Primary [facility] Diagnosis Vitamin B12 deficiency- Primary Other B-complex deficiencies [facility] Diagnosis B12 deficiency Other B-complex deficiencies [facility] Diagnosis Venous stasis ulcer of right ankle limited to breakdown of skin, 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 varicose veins present (HCC)- Primary [facility] Diagnosis PVD (peripheral vascular disease) (HCC)- Primary Peripheral vascular disease, unspecified Ulcer of right foot with fat layer exposed (HCC) Amputation of right great toe (HCC) Traumatic amputation of second toe of right foot, subsequent encounter (HCC) Right foot ulcer, 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) [facility] Diagnosis Ulcer of right foot with fat layer exposed (HCC)- Primary [facility] Diagnosis PVD (peripheral vascular disease) (HCC) Peripheral vascular disease, unspecified Ulcer of right foot with fat layer exposed (HCC) Amputation of right great toe (HCC) Traumatic amputation of second toe of right foot, subsequent encounter (HCC) Right foot ulcer, 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) [facility] Diagnosis Ulcer of right foot with fat layer exposed (HCC)- Primary [facility] Diagnosis Infection- Primary Unspecified infectious and parasitic diseases [facility] Diagnosis Vitamin B12 deficiency- Primary Other B-complex deficiencies [facility] Diagnosis Ulcer of right foot with fat layer exposed (HCC)- Primary [facility] Diagnosis 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 peripheral angiopathy with gangrene, 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 retirement insulin use (HCC) [facility] Diagnosis Ulcer of right foot with fat layer exposed (HCC)- Primary [facility] Diagnosis 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 peripheral angiopathy with gangrene, 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 retirement insulin use (HCC) [facility] Diagnosis Ulcer of right foot with fat layer exposed (HCC)- [facility] Diagnosis 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 peripheral angiopathy with gangrene, 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 retirement insulin use (HCC) [facility] Diagnosis Ulcer of right foot with fat layer exposed (HCC)- Primary PVD (peripheral vascular disease) (HCC) Peripheral vascular disease, unspecified 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, with fat layer exposed (HCC) [facility] Diagnosis Type 2 diabetes mellitus with diabetic peripheral angiopathy with gangrene, 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 retirement insulin use (HCC)- Primary Skin graft (allograft) (aut[facility]) [facility] Diagnosis Chronic heart failure with preserved ejection fraction (HCC)- Primary Primary hypertension Unspecified essential hypertension Mixed hyperlipidemia [facility] Diagnosis Ulcer of right foot with fat layer exposed (HCC)- Primary [facility]* Diagnosis Type 2 diabetes mellitus with diabetic peripheral angiopathy with gangrene, 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 retirement insulin use (HCC)- Primary Skin graft (allograft) (autograft) failure [facility] Diagnosis 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 peripheral angiopathy with gangrene, 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 (HCC) [facility] Diagnosis Chronic heart failure with preserved ejection fraction (HCC)- Primary [facility]* Diagnosis 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 peripheral angiopathy with gangrene, 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 retirement insulin use (HCC) [facility]* Diagnosis Ulcer of right foot with fat layer exposed (HCC)- Primary [facility]* Diagnosis Chronic heart failure with preserved ejection fraction (HCC) [facility]* Diagnosis 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 peripheral angiopathy with gangrene, 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 retirement insulin use (HCC) [facility] Diagnosis Ulcer of right foot with fat layer exposed (HCC)- Primary [facility]* Diagnosis 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 peripheral angiopathy with gangrene, 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 retirement insulin use (HCC) [facility] Diagnosis 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 peripheral angiopathy with gangrene, 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 retirement insulin use (HCC) [facility] Diagnosis 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 peripheral angiopathy with gangrene, 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 retirement insulin use (HCC) [facility]* Diagnosis Vitamin B12 deficiency- Primary Other B-complex deficiencies [facility]* Diagnosis 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 peripheral angiopathy with gangrene, 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 (HCC) [facility] Diagnosis Ulcer of right foot with fat layer exposed (HCC)- Primary [facility]* Diagnosis 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 peripheral angiopathy with gangrene, 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 (HCC) [facility]* Diagnosis 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 peripheral angiopathy with gangrene, 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 (HCC) [facility]* Diagnosis Right foot ulcer, 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)- Primary [facility]* Diagnosis Encounter for immunization- Primary Need for other specified prophylactic vaccination against single bacterial disease Vitamin B12 deficiency Other B-complex deficiencies Primary hypertension Unspecified essential hypertension [facility] Diagnosis Hematuria, unspecified type- Primary Postmenopausal bleeding [facility] Diagnosis 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 peripheral angiopathy with gangrene, 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 retirement insulin use (HCC) [facility] Diagnosis NELLY (obstructive sleep apnea)- Primary Obstructive sleep apnea (adult) (pediatric) Chronic heart failure with preserved ejection fraction (HCC) RLS (restless legs syndrome) Restless legs syndrome (RLS) Iron deficiency Iron deficiency anemia, unspecified Vitamin D deficiency Unspecified vitamin D deficiency documented in this encounter [facility]* Diagnosis 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 peripheral angiopathy with gangrene, 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 retirement insulin use (HCC) documented in this encounter [facility]* Diagnosis Right foot ulcer, 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)- Primary [facility] Diagnosis 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 peripheral angiopathy with gangrene, 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 (HCC) documented in this encounter [facility]* Diagnosis 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 peripheral angiopathy with gangrene, 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 retirement insulin use (HCC) documented in this encounter [facility]* Diagnosis 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 peripheral angiopathy with gangrene, 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 (HCC) [facility] Diagnosis 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 peripheral angiopathy with gangrene, 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 (HCC) documented in this encounter [facility]* Diagnosis Chronic heart failure with preserved ejection fraction (HCC)- Primary Primary hypertension Unspecified essential hypertension Mixed hyperlipidemia Type 2 diabetes mellitus with mild nonproliferative diabetic retinopathy without macular edema, unspecified eye (HCC) [facility] Diagnosis Chronic diastolic congestive heart failure (HCC)- Primary Chronic diastolic heart failure [facility] Diagnosis Right foot ulcer, 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)- Primary [facility] Diagnosis B12 deficiency- Primary Other B-complex deficiencies [facility] Diagnosis 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 peripheral angiopathy with gangrene, 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 retirement insulin use ([facility]) [facility] Diagnosis 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 peripheral angiopathy with gangrene, 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 ([facility]) [facility] Diagnosis Chronic heart failure with preserved ejection fraction (HCC)- Primary Mixed hyperlipidemia Primary hypertension Unspecified essential hypertension NELLY (obstructive sleep apnea) Obstructive sleep apnea (adult) (pediatric) [facility] Diagnosis 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 peripheral angiopathy with gangrene, 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 retirement insulin use ([facility]) [facility] Diagnosis B12 deficiency- Primary Other B-complex deficiencies Need for vaccination Need for prophylactic vaccination and inoculation against unspecified single disease [facility] Diagnosis Postmenopausal bleeding [facility] Diagnosis Chronic heart failure with preserved ejection fraction (HCC)- Primary Primary hypertension Unspecified essential hypertension Mixed hyperlipidemia Ulcer of right foot, with necrosis of bone (HCC) Hammer toe of right foot [facility] Diagnosis Vitamin B12 deficiency- Primary Other B-complex deficiencies [facility] Diagnosis Right foot ulcer, 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)- Primary Ulcer of right foot with fat layer exposed (HCC) PVD (peripheral vascular disease) (HCC) Peripheral vascular disease, unspecified 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, with fat layer exposed (HCC) Infection Unspecified infectious and parasitic diseases Amputation of right great toe (HCC) Traumatic amputation of second toe of right foot, subsequent encounter (HCC) Venous stasis ulcer of right ankle limited to breakdown of skin, 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 varicose veins present (HCC) Wound infection Posttraumatic wound infection not elsewhere classified [facility]* Diagnosis PMB (postmenopausal bleeding)- Primary Postmenopausal bleeding Thickened endometrium [R93.89] Nonspecific (abnormal) findings on radiological and other examination of genitourinary organs [facility]* Diagnosis Type 2 diabetes mellitus with proliferative retinopathy, with long-term current use of insulin (HCC) Mixed hyperlipidemia [facility]* Diagnosis Right foot ulcer, 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)- Primary Ulcer of right foot with fat layer exposed (HCC) PVD (peripheral vascular disease) (HCC) Peripheral vascular disease, unspecified 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, with fat layer exposed (HCC) Infection Unspecified infectious and parasitic diseases Amputation of right great toe (HCC) Traumatic amputation of second toe of right foot, subsequent encounter (HCC) Venous stasis ulcer of right ankle limited to breakdown of skin, 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 varicose veins present (HCC) [facility]* Diagnosis Endometrium cancer (HCC)- Primary Malignant neoplasm of corpus uteri, except isthmus Endometrium cancer (HCC) Malignant neoplasm of corpus uteri, except isthmus [facility]* Diagnosis Endometrial cancer (HCC)- Primary Malignant neoplasm of corpus uteri, except isthmus Mixed stress and urge urinary incontinence Mixed incontinence urge and stress (male)(female) Endometrium cancer (HCC) Malignant neoplasm of corpus uteri, except isthmus [facility]* Diagnosis Wound infection- Primary Posttraumatic wound infection not elsewhere classified Controlled type 2 diabetes mellitus without complication, 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 (HCC) Ulcer of right foot with fat layer exposed (HCC) [facility]* Diagnosis Encounter for screening mammogram for breast cancer [facility]* Diagnosis B12 deficiency- Primary Other B-complex deficiencies [facility]* Diagnosis Endometrial cancer (HCC)- Primary Malignant neoplasm of corpus uteri, except isthmus [facility]* Diagnosis Type 2 diabetes mellitus with mild nonproliferative diabetic retinopathy without macular edema, unspecified eye (HCC) [facility] Diagnosis Vitamin B 12 deficiency- Primary Other B-complex deficiencies [facility] Diagnosis Chronic heart failure with preserved ejection fraction (HCC)- Primary Primary hypertension Unspecified essential hypertension Mixed hyperlipidemia [facility]* Diagnosis Vitamin B 12 deficiency- Primary Other B-complex deficiencies [facility]* Diagnosis Endometrial cancer (HCC)- Primary Malignant neoplasm of corpus uteri, except isthmus Vulvar dermatitis Other inflammatory disease of cervix, vagina and vulva [facility] Diagnosis PVD (peripheral vascular disease) (HCC)- Primary Peripheral vascular disease, unspecified Wound infection Posttraumatic wound infection not elsewhere classified [facility]* Diagnosis Vitamin B 12 deficiency- Primary Other B-complex deficiencies [facility] Diagnosis Chronic heart failure with preserved ejection fraction (HCC)- Primary Primary hypertension Unspecified essential hypertension Mixed hyperlipidemia NELLY (obstructive sleep apnea) Obstructive sleep apnea (adult) (pediatric) [facility]* Diagnosis Vitamin B12 deficiency- Primary Other B-complex deficiencies 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, with long-term current use of insulin ([facility]) Screening for colon cancer Special screening for malignant neoplasms, colon [facility] Diagnosis Ulcer of right foot with fat layer exposed (HCC)- Primary [facility]* Diagnosis 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, with long-term current use of insulin (HCC) [facility] Diagnosis Ulcer of right foot with fat layer exposed (HCC)- Primary [facility]* Diagnosis 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, with long-term current use of insulin (HCC)- Primary Mixed hyperlipidemia Primary hypertension Unspecified essential hypertension Albuminuria Proteinuria Obesity, Class I, BMI 30-34.9 Obesity, unspecified Ulcers of both lower extremities, limited to breakdown of skin ([facility]) [facility]* Diagnosis Pre-op exam Preoperative examination, unspecified Endometrial cancer (HCC) Malignant neoplasm of corpus uteri, except isthmus NELLY (obstructive sleep apnea) Obstructive sleep apnea (adult) (pediatric) Mixed hyperlipidemia Primary hypertension Unspecified essential hypertension Chronic heart failure with preserved ejection fraction (HCC) Pernicious anemia 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, with long-term current use of insulin (HCC) OAB (overactive bladder)- Primary Hypertonicity of bladder Mixed stress and urge urinary incontinence Mixed incontinence urge and stress (male)(female) Urge incontinence Acute vaginitis Vaginitis and vulvovaginitis, unspecified * Assessment & Plan Note - Tiera Johnson MD - 04/26/2024 2:27 PM EDT Associated Problem(s): Urge incontinence - Educated on urge incontinence - Discussed lifestyle modifications, stop drinking after 8 pm, reduce soda intake - Elevate legs in the evenings to increase blood flow prior to sleep - Encouraged CPAP use- patient has at home but is not using. 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, with long-term current use of insulin (HCC) OAB (overactive bladder)- Primary Hypertonicity of bladder Mixed stress and urge urinary incontinence Mixed incontinence urge and stress (male)(female) Urge incontinence Acute vaginitis Vaginitis and vulvovaginitis, unspecified Ulcer of right foot with fat layer exposed (HCC)- Primary [facility] Diagnosis Pre-op exam Preoperative examination, unspecified Endometrial cancer (HCC) Malignant neoplasm of corpus uteri, except isthmus NELLY (obstructive sleep apnea) Obstructive sleep apnea (adult) (pediatric) Mixed hyperlipidemia Primary hypertension Unspecified essential hypertension Chronic heart failure with preserved ejection fraction (HCC) Pernicious anemia 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, with long-term current use of insulin (HCC) OAB (overactive bladder)- Primary Hypertonicity of bladder Mixed stress and urge urinary incontinence Mixed incontinence urge and stress (male)(female) Urge incontinence Acute vaginitis Vaginitis and vulvovaginitis, unspecified B12 deficiency- Primary Other B-complex deficiencies [facility] Diagnosis Pre-op exam Preoperative examination, unspecified Endometrial cancer (HCC) Malignant neoplasm of corpus uteri, except isthmus NELLY (obstructive sleep apnea) Obstructive sleep apnea (adult) (pediatric) Mixed hyperlipidemia Primary hypertension Unspecified essential hypertension Chronic heart failure with preserved ejection fraction (HCC) Pernicious anemia 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, with long-term current use of insulin (HCC) OAB (overactive bladder)- Primary Hypertonicity of bladder Mixed stress and urge urinary incontinence Mixed incontinence urge and stress (male)(female) Urge incontinence Acute vaginitis Vaginitis and vulvovaginitis, unspecified Non-prs chr ulcer oth prt r low leg limited to brkdwn skin (HCC)- Primary [facility]* Diagnosis OAB (overactive bladder) [facility] Diagnosis Pre-op exam Preoperative examination, unspecified Endometrial cancer (HCC) Malignant neoplasm of corpus uteri, except isthmus NELLY (obstructive sleep apnea) Obstructive sleep apnea (adult) (pediatric) Mixed hyperlipidemia Primary hypertension Unspecified essential hypertension Chronic heart failure with preserved ejection fraction (HCC) Pernicious anemia 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, with long-term current use of insulin (HCC) OAB (overactive bladder)- Primary Hypertonicity of bladder Mixed stress and urge urinary incontinence Mixed incontinence urge and stress (male)(female) Urge incontinence Acute vaginitis Vaginitis and vulvovaginitis, unspecified Endometrial cancer (HCC)- Primary Malignant neoplasm of corpus uteri, except isthmus Vulvar dermatitis Other inflammatory disease of cervix, vagina and vulva Mixed stress and urge urinary incontinence Mixed incontinence urge and stress (male)(female) [facility] Diagnosis Pre-op exam Preoperative examination, unspecified Endometrial cancer (HCC) Malignant neoplasm of corpus uteri, except isthmus NELLY (obstructive sleep apnea) Obstructive sleep apnea (adult) (pediatric) Mixed hyperlipidemia Primary hypertension Unspecified essential hypertension Chronic heart failure with preserved ejection fraction (HCC) Pernicious anemia 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, with long-term current use of insulin (HCC) OAB (overactive bladder)- Primary Hypertonicity of bladder Mixed stress and urge urinary incontinence Mixed incontinence urge and stress (male)(female) Urge incontinence Acute vaginitis Vaginitis and vulvovaginitis, unspecified Right foot ulcer, 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)- Primary documented in this encounter [facility]* Diagnosis OAB (overactive bladder)- Primary documented in this encounter [facility]* Diagnosis OAB (overactive bladder)- Primary documented in this encounter [facility]* Diagnosis Pre-op exam Preoperative examination, unspecified Endometrial cancer (HCC) Malignant neoplasm of corpus uteri, except isthmus NELLY (obstructive sleep apnea) Obstructive sleep apnea (adult) (pediatric) Mixed hyperlipidemia Primary hypertension Unspecified essential hypertension Chronic heart failure with preserved ejection fraction (HCC) Pernicious anemia 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, with long-term current use of insulin (HCC) OAB (overactive bladder)- Primary Hypertonicity of bladder Mixed stress and urge urinary incontinence Mixed incontinence urge and stress (male)(female) Urge incontinence Acute vaginitis Vaginitis and vulvovaginitis, unspecified Chronic heart failure with preserved ejection fraction (HCC)- Primary Primary hypertension Unspecified essential hypertension Mixed hyperlipidemia [facility] Diagnosis Pre-op exam Preoperative examination, unspecified Endometrial cancer (HCC) Malignant neoplasm of corpus uteri, except isthmus NELLY (obstructive sleep apnea) Obstructive sleep apnea (adult) (pediatric) Mixed hyperlipidemia Primary hypertension Unspecified essential hypertension Chronic heart failure with preserved ejection fraction (HCC) Pernicious anemia 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, with long-term current use of insulin (HCC) OAB (overactive bladder)- Primary Hypertonicity of bladder Mixed stress and urge urinary incontinence Mixed incontinence urge and stress (male)(female) Urge incontinence Acute vaginitis Vaginitis and vulvovaginitis, unspecified Vitamin B 12 deficiency- Primary Other B-complex deficiencies [facility] Diagnosis Pre-op exam Preoperative examination, unspecified Endometrial cancer (HCC) Malignant neoplasm of corpus uteri, except isthmus NELLY (obstructive sleep apnea) Obstructive sleep apnea (adult) (pediatric) Mixed hyperlipidemia Primary hypertension Unspecified essential hypertension Chronic heart failure with preserved ejection fraction (HCC) Pernicious anemia 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, with long-term current use of insulin (HCC) OAB (overactive bladder)- Primary Hypertonicity of bladder Mixed stress and urge urinary incontinence Mixed incontinence urge and stress (male)(female) Urge incontinence Acute vaginitis Vaginitis and vulvovaginitis, unspecified Venous stasis ulcer of right ankle limited to breakdown of skin, 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 varicose veins present ([facility])- Primary [facility] Diagnosis Pre-op exam Preoperative examination, unspecified Endometrial cancer (HCC) Malignant neoplasm of corpus uteri, except isthmus NELLY (obstructive sleep apnea) Obstructive sleep apnea (adult) (pediatric) Mixed hyperlipidemia Primary hypertension Unspecified essential hypertension Chronic heart failure with preserved ejection fraction (HCC) Pernicious anemia 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, with long-term current use of insulin (HCC) OAB (overactive bladder)- Primary Hypertonicity of bladder Mixed stress and urge urinary incontinence Mixed incontinence urge and stress (male)(female) Urge incontinence Acute vaginitis Vaginitis and vulvovaginitis, unspecified Chronic heart failure with preserved ejection fraction (HCC)- Primary [facility] Diagnosis Pre-op exam Preoperative examination, unspecified Endometrial cancer (HCC) Malignant neoplasm of corpus uteri, except isthmus NELLY (obstructive sleep apnea) Obstructive sleep apnea (adult) (pediatric) Mixed hyperlipidemia Primary hypertension Unspecified essential hypertension Chronic heart failure with preserved ejection fraction (HCC) Pernicious anemia 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, with long-term current use of insulin (HCC) OAB (overactive bladder)- Primary Hypertonicity of bladder Mixed stress and urge urinary incontinence Mixed incontinence urge and stress (male)(female) Urge incontinence Acute vaginitis Vaginitis and vulvovaginitis, unspecified Chronic heart failure with preserved ejection fraction (HCC)- Primary Primary hypertension Unspecified essential hypertension Mixed hyperlipidemia 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, with long-term current use of insulin (HCC) OAB (overactive bladder)- Primary Hypertonicity of bladder Mixed stress and urge urinary incontinence Mixed incontinence urge and stress (male)(female) Urge incontinence Acute vaginitis Vaginitis and vulvovaginitis, unspecified B12 deficiency- Primary Other B-complex deficiencies [facility] Diagnosis Pre-op exam Preoperative examination, unspecified Endometrial cancer (HCC) Malignant neoplasm of corpus uteri, except isthmus NELLY (obstructive sleep apnea) Obstructive sleep apnea (adult) (pediatric) Mixed hyperlipidemia Primary hypertension Unspecified essential hypertension Chronic heart failure with preserved ejection fraction (HCC) Pernicious anemia 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, with long-term current use of insulin (HCC) OAB (overactive bladder)- Primary Hypertonicity of bladder Mixed stress and urge urinary incontinence Mixed incontinence urge and stress (male)(female) Urge incontinence Acute vaginitis Vaginitis and vulvovaginitis, unspecified Right foot ulcer, 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)- Primary [facility] Diagnosis Pre-op exam Preoperative examination, unspecified Endometrial cancer (HCC) Malignant neoplasm of corpus uteri, except isthmus NELLY (obstructive sleep apnea) Obstructive sleep apnea (adult) (pediatric) Mixed hyperlipidemia Primary hypertension Unspecified essential hypertension Chronic heart failure with preserved ejection fraction (HCC) Pernicious anemia 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, with long-term current use of insulin (HCC) OAB (overactive bladder)- Primary Hypertonicity of bladder Mixed stress and urge urinary incontinence Mixed incontinence urge and stress (male)(female) Urge incontinence Acute vaginitis Vaginitis and vulvovaginitis, unspecified Chronic heart failure with preserved ejection fraction (HCC)- Primary Primary hypertension Unspecified essential hypertension Mixed hyperlipidemia [facility] Diagnosis Pre-op exam Preoperative examination, unspecified Endometrial cancer (HCC) Malignant neoplasm of corpus uteri, except isthmus NELLY (obstructive sleep apnea) Obstructive sleep apnea (adult) (pediatric) Mixed hyperlipidemia Primary hypertension Unspecified essential hypertension Chronic heart failure with preserved ejection fraction (HCC) Pernicious anemia 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, with long-term current use of insulin ([facility]) OAB (overactive bladder)- Primary Hypertonicity of bladder Mixed stress and urge urinary incontinence Mixed incontinence urge and stress (male)(female) Urge incontinence Acute vaginitis Vaginitis and vulvovaginitis, unspecified 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, with long-term current use of insulin ([facility]) [facility] Diagnosis Pre-op exam Preoperative examination, unspecified Endometrial cancer (HCC) Malignant neoplasm of corpus uteri, except isthmus NELLY (obstructive sleep apnea) Obstructive sleep apnea (adult) (pediatric) Mixed hyperlipidemia Primary hypertension Unspecified essential hypertension Chronic heart failure with preserved ejection fraction (HCC) Pernicious anemia 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, with long-term current use of insulin ([facility]) OAB (overactive bladder)- Primary Hypertonicity of bladder Mixed stress and urge urinary incontinence Mixed incontinence urge and stress (male)(female) Urge incontinence Acute vaginitis Vaginitis and vulvovaginitis, unspecified Type 2 diabetes mellitus with proliferative retinopathy, with long-term current use of insulin ([facility]) Mixed hyperlipidemia [facility]* Diagnosis Pre-op exam Preoperative examination, unspecified Endometrial cancer (HCC) Malignant neoplasm of corpus uteri, except isthmus NELLY (obstructive sleep apnea) Obstructive sleep apnea (adult) (pediatric) Mixed hyperlipidemia Primary hypertension Unspecified essential hypertension Chronic heart failure with preserved ejection fraction (HCC) Pernicious anemia 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, with long-term current use of insulin (HCC) OAB (overactive bladder)- Primary Hypertonicity of bladder Mixed stress and urge urinary incontinence Mixed incontinence urge and stress (male)(female) Urge incontinence Acute vaginitis Vaginitis and vulvovaginitis, unspecified Wound infection- Primary Posttraumatic wound infection not elsewhere classified [facility] Diagnosis OAB (overactive bladder)- Primary documented in this encounter [facility]* Diagnosis Pre-op exam Preoperative examination, unspecified Endometrial cancer (HCC) Malignant neoplasm of corpus uteri, except isthmus NELLY (obstructive sleep apnea) Obstructive sleep apnea (adult) (pediatric) Mixed hyperlipidemia Primary hypertension Unspecified essential hypertension Chronic heart failure with preserved ejection fraction (HCC) Pernicious anemia 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, with long-term current use of insulin (HCC) OAB (overactive bladder)- Primary Hypertonicity of bladder Mixed stress and urge urinary incontinence Mixed incontinence urge and stress (male)(female) Urge incontinence Acute vaginitis Vaginitis and vulvovaginitis, unspecified Non-prs chr ulcer oth prt r low leg limited to brkdwn skin ([facility])- Primary documented in this encounter [facility]* Diagnosis Leg wound, left, initial encounter- Primary Leg wound, right, initial encounter documented in this encounter [facility]* Diagnosis Pre-op exam Preoperative examination, unspecified Endometrial cancer (HCC) Malignant neoplasm of corpus uteri, except isthmus NELLY (obstructive sleep apnea) Obstructive sleep apnea (adult) (pediatric) Mixed hyperlipidemia Primary hypertension Unspecified essential hypertension Chronic heart failure with preserved ejection fraction (HCC) Pernicious anemia 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, with long-term current use of insulin (HCC) OAB (overactive bladder)- Primary Hypertonicity of bladder Mixed stress and urge urinary incontinence Mixed incontinence urge and stress (male)(female) Urge incontinence Acute vaginitis Vaginitis and vulvovaginitis, unspecified Non-prs chr ulcer oth prt r low leg limited to brkdwn skin (HCC)- Primary documented in this encounter [facility]* Diagnosis Pre-op exam Preoperative examination, unspecified Endometrial cancer (HCC) Malignant neoplasm of corpus uteri, except isthmus NELLY (obstructive sleep apnea) Obstructive sleep apnea (adult) (pediatric) Mixed hyperlipidemia Primary hypertension Unspecified essential hypertension Chronic heart failure with preserved ejection fraction (HCC) Pernicious anemia 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, with long-term current use of insulin (HCC) OAB (overactive bladder)- Primary Hypertonicity of bladder Mixed stress and urge urinary incontinence Mixed incontinence urge and stress (male)(female) Urge incontinence Acute vaginitis Vaginitis and vulvovaginitis, unspecified Routine eye exam- Primary [facility] Diagnosis Pre-op exam Preoperative examination, unspecified Endometrial cancer (HCC) Malignant neoplasm of corpus uteri, except isthmus NELLY (obstructive sleep apnea) Obstructive sleep apnea (adult) (pediatric) Mixed hyperlipidemia Primary hypertension Unspecified essential hypertension Chronic heart failure with preserved ejection fraction (HCC) Pernicious anemia 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, with long-term current use of insulin (HCC) OAB (overactive bladder)- Primary Hypertonicity of bladder Mixed stress and urge urinary incontinence Mixed incontinence urge and stress (male)(female) Urge incontinence Acute vaginitis Vaginitis and vulvovaginitis, unspecified Encounter for screening mammogram for breast cancer [facility]* Diagnosis Pre-op exam Preoperative examination, unspecified Endometrial cancer (HCC) Malignant neoplasm of corpus uteri, except isthmus NELLY (obstructive sleep apnea) Obstructive sleep apnea (adult) (pediatric) Mixed hyperlipidemia Primary hypertension Unspecified essential hypertension Chronic heart failure with preserved ejection fraction (HCC) Pernicious anemia 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, with long-term current use of insulin (HCC) OAB (overactive bladder)- Primary Hypertonicity of bladder Mixed stress and urge urinary incontinence Mixed incontinence urge and stress (male)(female) Urge incontinence Acute vaginitis Vaginitis and vulvovaginitis, unspecified Type 2 diabetes mellitus with proliferative retinopathy, with long-term current use of insulin, macular edema presence unspecified, unspecified laterality, unspecified proliferative retinopathy* (HCC)- Primary Pernicious anemia Primary hypertension Unspecified essential hypertension Mixed hyperlipidemia Obesity, Class I, BMI 30-34.9 Obesity, unspecified [facility]* Diagnosis Pre-op exam Preoperative examination, unspecified Endometrial cancer (HCC) Malignant neoplasm of corpus uteri, except isthmus NELLY (obstructive sleep apnea) Obstructive sleep apnea (adult) (pediatric) Mixed hyperlipidemia Primary hypertension Unspecified essential hypertension Chronic heart failure with preserved ejection fraction (HCC) Pernicious anemia 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, with long-term current use of insulin (HCC) OAB (overactive bladder)- Primary Hypertonicity of bladder Mixed stress and urge urinary incontinence Mixed incontinence urge and stress (male)(female) Urge incontinence Acute vaginitis Vaginitis and vulvovaginitis, unspecified Right foot ulcer, 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)- Primary documented in this encounter [facility]* Diagnosis Pre-op exam Preoperative examination, unspecified Endometrial cancer (HCC) Malignant neoplasm of corpus uteri, except isthmus NELLY (obstructive sleep apnea) Obstructive sleep apnea (adult) (pediatric) Mixed hyperlipidemia Primary hypertension Unspecified essential hypertension Chronic heart failure with preserved ejection fraction (HCC) Pernicious anemia 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, with long-term current use of insulin (HCC) OAB (overactive bladder)- Primary Hypertonicity of bladder Mixed stress and urge urinary incontinence Mixed incontinence urge and stress (male)(female) Urge incontinence Acute vaginitis Vaginitis and vulvovaginitis, unspecified Right foot ulcer, 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)- Primary documented in this encounter [facility]* Diagnosis Pre-op exam Preoperative examination, unspecified Endometrial cancer (HCC) Malignant neoplasm of corpus uteri, except isthmus NELLY (obstructive sleep apnea) Obstructive sleep apnea (adult) (pediatric) Mixed hyperlipidemia Primary hypertension Unspecified essential hypertension Chronic heart failure with preserved ejection fraction (HCC) Pernicious anemia 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, with long-term current use of insulin (HCC) OAB (overactive bladder)- Primary Hypertonicity of bladder Mixed stress and urge urinary incontinence Mixed incontinence urge and stress (male)(female) Urge incontinence Acute vaginitis Vaginitis and vulvovaginitis, unspecified Type 2 diabetes mellitus with diabetic peripheral angiopathy with gangrene, 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 (HCC)- Primary 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) Ulcer of calf 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) Ulcer of calf Skin graft (allograft) (autograft) failure [facility] Diagnosis Pre-op exam Preoperative examination, unspecified Endometrial cancer (HCC) Malignant neoplasm of corpus uteri, except isthmus NELLY (obstructive sleep apnea) Obstructive sleep apnea (adult) (pediatric) Mixed hyperlipidemia Primary hypertension Unspecified essential hypertension Chronic heart failure with preserved ejection fraction (HCC) Pernicious anemia 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, with long-term current use of insulin ([facility]) OAB (overactive bladder)- Primary Hypertonicity of bladder Mixed stress and urge urinary incontinence Mixed incontinence urge and stress (male)(female) Urge incontinence Acute vaginitis Vaginitis and vulvovaginitis, unspecified 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 peripheral angiopathy with gangrene, 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 retirement insulin use ([facility]) [facility]* Diagnosis Pre-op exam Preoperative examination, unspecified Endometrial cancer (HCC) Malignant neoplasm of corpus uteri, except isthmus NELLY (obstructive sleep apnea) Obstructive sleep apnea (adult) (pediatric) Mixed hyperlipidemia Primary hypertension Unspecified essential hypertension Chronic heart failure with preserved ejection fraction (HCC) Pernicious anemia 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, with long-term current use of insulin ([facility]) OAB (overactive bladder)- Primary Hypertonicity of bladder Mixed stress and urge urinary incontinence Mixed incontinence urge and stress (male)(female) Urge incontinence Acute vaginitis Vaginitis and vulvovaginitis, unspecified Regional wall motion abnormality of heart- Primary Nonspecific (abnormal) findings on radiological and other examination of other intrathoracic organs Left ventricular systolic dysfunction Heart disease, unspecified Mixed hyperlipidemia Chronic heart failure with preserved ejection fraction (HCC) Primary hypertension Unspecified essential hypertension NELLY (obstructive sleep apnea) Obstructive sleep apnea (adult) (pediatric) Valvular heart disease Endocarditis, valve unspecified, unspecified cause Pulmonary hypertension (HCC) Other chronic pulmonary heart diseases [facility] Diagnosis Pre-op exam Preoperative examination, unspecified Endometrial cancer (HCC) Malignant neoplasm of corpus uteri, except isthmus NELLY (obstructive sleep apnea) Obstructive sleep apnea (adult) (pediatric) Mixed hyperlipidemia Primary hypertension Unspecified essential hypertension Chronic heart failure with preserved ejection fraction (HCC) Pernicious anemia 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, with long-term current use of insulin (HCC) OAB (overactive bladder)- Primary Hypertonicity of bladder Mixed stress and urge urinary incontinence Mixed incontinence urge and stress (male)(female) Urge incontinence Acute vaginitis Vaginitis and vulvovaginitis, unspecified Right foot ulcer, 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)- Primary Heart failure with preserved ejection fraction, unspecified HF chronicity (HCC) documented in this encounter [facility]* Diagnosis Pre-op exam Preoperative examination, unspecified Endometrial cancer (HCC) Malignant neoplasm of corpus uteri, except isthmus NELLY (obstructive sleep apnea) Obstructive sleep apnea (adult) (pediatric) Mixed hyperlipidemia Primary hypertension Unspecified essential hypertension Chronic heart failure with preserved ejection fraction (HCC) Pernicious anemia 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, with long-term current use of insulin (HCC) OAB (overactive bladder)- Primary Hypertonicity of bladder Mixed stress and urge urinary incontinence Mixed incontinence urge and stress (male)(female) Urge incontinence Acute vaginitis Vaginitis and vulvovaginitis, unspecified 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 peripheral angiopathy with gangrene, 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 retirement insulin use (HCC) 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) Ulcer of calf Heart failure with preserved ejection fraction, unspecified HF chronicity (HCC) documented in this encounter [facility]* Diagnosis Pre-op exam Preoperative examination, unspecified Endometrial cancer (HCC) Malignant neoplasm of corpus uteri, except isthmus NELLY (obstructive sleep apnea) Obstructive sleep apnea (adult) (pediatric) Mixed hyperlipidemia Primary hypertension Unspecified essential hypertension Chronic heart failure with preserved ejection fraction (HCC) Pernicious anemia 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, with long-term current use of insulin (HCC) OAB (overactive bladder)- Primary Hypertonicity of bladder Mixed stress and urge urinary incontinence Mixed incontinence urge and stress (male)(female) Urge incontinence Acute vaginitis Vaginitis and vulvovaginitis, unspecified Type 2 diabetes mellitus with diabetic peripheral angiopathy with gangrene, 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 (HCC)- Primary 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) Ulcer of calf 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) Ulcer of calf Heart failure with preserved ejection fraction, unspecified HF chronicity (HCC) [facility] Diagnosis Pre-op exam Preoperative examination, unspecified Endometrial cancer (HCC) Malignant neoplasm of corpus uteri, except isthmus NELLY (obstructive sleep apnea) Obstructive sleep apnea (adult) (pediatric) Mixed hyperlipidemia Primary hypertension Unspecified essential hypertension Chronic heart failure with preserved ejection fraction (HCC) Pernicious anemia 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, with long-term current use of insulin (HCC) OAB (overactive bladder)- Primary Hypertonicity of bladder Mixed stress and urge urinary incontinence Mixed incontinence urge and stress (male)(female) Urge incontinence Acute vaginitis Vaginitis and vulvovaginitis, unspecified Type 2 diabetes mellitus with diabetic peripheral angiopathy with gangrene, 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 retirement insulin use (HCC)- Primary 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) Ulcer of calf 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) Ulcer of calf Heart failure with preserved ejection fraction, unspecified HF chronicity (HCC) [facility] Diagnosis Pre-op exam Preoperative examination, unspecified Endometrial cancer (HCC) Malignant neoplasm of corpus uteri, except isthmus NELLY (obstructive sleep apnea) Obstructive sleep apnea (adult) (pediatric) Mixed hyperlipidemia Primary hypertension Unspecified essential hypertension Chronic heart failure with preserved ejection fraction (HCC) Pernicious anemia 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, with long-term current use of insulin (HCC) OAB (overactive bladder)- Primary Hypertonicity of bladder Mixed stress and urge urinary incontinence Mixed incontinence urge and stress (male)(female) Urge incontinence Acute vaginitis Vaginitis and vulvovaginitis, unspecified Right foot ulcer, 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)- Primary Heart failure with preserved ejection fraction, unspecified HF chronicity (HCC) [facility] Diagnosis Pre-op exam Preoperative examination, unspecified Endometrial cancer (HCC) Malignant neoplasm of corpus uteri, except isthmus NELLY (obstructive sleep apnea) Obstructive sleep apnea (adult) (pediatric) Mixed hyperlipidemia Primary hypertension Unspecified essential hypertension Chronic heart failure with preserved ejection fraction (HCC) Pernicious anemia 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, with long-term current use of insulin (HCC) OAB (overactive bladder)- Primary Hypertonicity of bladder Mixed stress and urge urinary incontinence Mixed incontinence urge and stress (male)(female) Urge incontinence Acute vaginitis Vaginitis and vulvovaginitis, unspecified Type 2 diabetes mellitus with diabetic peripheral angiopathy with gangrene, 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 (HCC)- Primary 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) Ulcer of calf 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) Ulcer of calf [facility] Diagnosis Pre-op exam Preoperative examination, unspecified Endometrial cancer (HCC) Malignant neoplasm of corpus uteri, except isthmus NELLY (obstructive sleep apnea) Obstructive sleep apnea (adult) (pediatric) Mixed hyperlipidemia Primary hypertension Unspecified essential hypertension Chronic heart failure with preserved ejection fraction (HCC) Pernicious anemia 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, with long-term current use of insulin (HCC) OAB (overactive bladder)- Primary Hypertonicity of bladder Mixed stress and urge urinary incontinence Mixed incontinence urge and stress (male)(female) Urge incontinence Acute vaginitis Vaginitis and vulvovaginitis, unspecified Type 2 diabetes mellitus with diabetic peripheral angiopathy with gangrene, 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 retirement insulin use (HCC)- Primary 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) Ulcer of calf 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) Ulcer of calf [facility] Diagnosis Pre-op exam Preoperative examination, unspecified Endometrial cancer (HCC) Malignant neoplasm of corpus uteri, except isthmus NELLY (obstructive sleep apnea) Obstructive sleep apnea (adult) (pediatric) Mixed hyperlipidemia Primary hypertension Unspecified essential hypertension Chronic heart failure with preserved ejection fraction (HCC) Pernicious anemia 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, with long-term current use of insulin (HCC) OAB (overactive bladder)- Primary Hypertonicity of bladder Mixed stress and urge urinary incontinence Mixed incontinence urge and stress (male)(female) Urge incontinence Acute vaginitis Vaginitis and vulvovaginitis, unspecified Type 2 diabetes mellitus with diabetic peripheral angiopathy with gangrene, 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 (HCC)- Primary 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) Ulcer of calf 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) Ulcer of calf 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, with long-term current use of insulin (HCC) OAB (overactive bladder)- Primary Hypertonicity of bladder Mixed stress and urge urinary incontinence Mixed incontinence urge and stress (male)(female) Urge incontinence Acute vaginitis Vaginitis and vulvovaginitis, unspecified Wound infection- Primary Posttraumatic wound infection not elsewhere classified Non-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, 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) Ulcer of lower limb, unspecified Non-pressure chronic ulcer of right lower leg, 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) Ulcer of lower limb, unspecified 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, with long-term current use of insulin (HCC) OAB (overactive bladder)- Primary Hypertonicity of bladder Mixed stress and urge urinary incontinence Mixed incontinence urge and stress (male)(female) Urge incontinence Acute vaginitis Vaginitis and vulvovaginitis, unspecified 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, with long-term current use of insulin (HCC)- Primary Non-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, 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) Ulcer of lower limb, unspecified Non-pressure chronic ulcer of right lower leg, 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) Ulcer of lower limb, unspecified 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, with long-term current use of insulin (HCC) OAB (overactive bladder)- Primary Hypertonicity of bladder Mixed stress and urge urinary incontinence Mixed incontinence urge and stress (male)(female) Urge incontinence Acute vaginitis Vaginitis and vulvovaginitis, unspecified Type 2 diabetes mellitus with diabetic peripheral angiopathy with gangrene, 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 retirement insulin use (HCC)- Primary 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) Ulcer of calf 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) Ulcer of calf Non-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, 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) Ulcer of lower limb, unspecified Non-pressure chronic ulcer of right lower leg, 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) Ulcer of lower limb, unspecified [facility] Diagnosis Pre-op exam Preoperative examination, unspecified Endometrial cancer (HCC) Malignant neoplasm of corpus uteri, except isthmus NELLY (obstructive sleep apnea) Obstructive sleep apnea (adult) (pediatric) Mixed hyperlipidemia Primary hypertension Unspecified essential hypertension Chronic heart failure with preserved ejection fraction (HCC) Pernicious anemia 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, with long-term current use of insulin (HCC) OAB (overactive bladder)- Primary Hypertonicity of bladder Mixed stress and urge urinary incontinence Mixed incontinence urge and stress (male)(female) Urge incontinence Acute vaginitis Vaginitis and vulvovaginitis, unspecified Pre-op evaluation- Primary Preoperative examination, unspecified Depression, unspecified depression type NELLY (obstructive sleep apnea) Obstructive sleep apnea (adult) (pediatric) Mixed hyperlipidemia Primary hypertension Unspecified essential hypertension 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 Had symptoms of double vision. * Assessment & Plan Note - Marylou Mcclellan APRN.CNP - 11/30/2024 2:58 PM EDT Associated Problem(s): BMI 29.0-29.9,adult Assessment: Body mass index is 29.33 kg/m . * Assessment & Plan Note - Marylou Mcclellan APRN.CNP - 11/30/2024 2:55 PM EDT Associated Problem(s): Chronic heart failure with preserved ejection fraction (HCC) Assessment: Follows Cardiology. Compliant on medications. Denies new or worsening cardiac symptoms. Recent Results (from the past 4464 hours) ECHO Collection Time: 07/28/24 1:24 PM Impression CONCLUSIONS: - Exam indication: Heart failure - The left ventricle is normal in size. Left ventricular systolic function is mildly decreased. EF = 50 5% (visual est.). Definity contrast used for endocardial border detection. Grade II left ventricular diastolic dysfunction. - The right ventricle is mildly dilated. Right ventricular systolic function is normal. - The right atrial cavity is moderately dilated. - There is mild (1+) mitral valve regurgitation. - Mild to moderate (1-2+) tricuspid valve regurgitation. - Estimated right ventricular systolic pressure is 56 mmHg consistent with moderate pulmonary hypertension. Estimated right atrial pressure is 15 mmHg based on IVC assessment. - Wall motion abnormalities as above. - Exam was compared with the prior OUTSIDE echocardiographic exam performed on 02/19/22. Compared to prior report, left ventricular function has declined with new wall motion abnormalities and estimated RVSP is higher. * * * Final * * * Office Visit with Shanel Newell APRN.CNP (11/17/2024) * Assessment & Plan Note - Marylou Mcclellan APRN.CNP - 11/30/2024 2:15 PM EDT Associated Problem(s): Type 2 diabetes mellitus with proliferative retinopathy, with long-term current use of insulin (HCC) Assessment: Reports compliance to medication. Reports fasting BS checks ranging in the 130s Encouraged lifestyle modifications. Follows Endocrinology. Hemoglobin A1C (%) Date Value 07/05/2024 8.8 03/13/2024 9.8 02/04/2021 11.1 Hemoglobin A1c (%) Date Value 08/11/2013 7.0 05/03/2013 11.1 Hemoglobin A1C (POCT) (%) Date Value 10/25/2024 7.4 06/14/2023 7.9 Office Visit with Giovanni Cerrato MD (10/25/2024) * Assessment & Plan Note - Marylou Mcclellan APRN.CNP - 11/30/2024 2:11 PM EDT Associated Problem(s): Primary hypertension Assessment: Stable and compliant with medications. Follows with PCP. Last 3 Encounter BP Readings: Date: BP: 11/30/2024 125/39 11/27/2024 109/63 11/24/2024 136/72 * Assessment & Plan Note - Marylou Mcclellan APRN.CNP - 11/30/2024 2:11 PM EDT Associated Problem(s): Mixed hyperlipidemia Assessment: Compliant on statin therapy. Encouraged lifestyle modifications. Body mass index is 29.33 kg/m . * Assessment & Plan Note - Marylou Mcclellan APRN.CNP - 11/30/2024 2:09 PM EDT Associated Problem(s): NELLY (obstructive sleep apnea) Assessment: Has not started using device. Office Visit with Rodo Medrano APRN.CNP (09/13/2023) * Assessment & Plan Note - Marylou Mcclellan APRN.CNP - 11/30/2024 2:09 PM EDT Associated Problem(s): Depression Assessment: Mood stable, compliant on rx. Follows PCP. 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, with long-term current use of insulin (HCC) OAB (overactive bladder)- Primary Hypertonicity of bladder Mixed stress and urge urinary incontinence Mixed incontinence urge and stress (male)(female) Urge incontinence Acute vaginitis Vaginitis and vulvovaginitis, unspecified Pre-op evaluation- Primary Preoperative examination, unspecified Depression, unspecified depression type NELLY (obstructive sleep apnea) Obstructive sleep apnea (adult) (pediatric) Mixed hyperlipidemia Primary hypertension Unspecified essential hypertension 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, with long-term current use of insulin (HCC) Chronic heart failure with preserved ejection fraction (HCC) BMI 29.0-29.9,adult Body Mass Index 29.0-29.9, adult History of TIA (transient ischemic attack) Transient ischemic attack (TIA), and cerebral infarction without residual deficits Right foot ulcer, 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)- Primary Non-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, 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) Ulcer of lower limb, unspecified Non-pressure chronic ulcer of right lower leg, 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) Ulcer of lower limb, unspecified [facility] noteNo assessment information availableWMagr[facility] Work Phone: Evaluation note* Diagnosis Pre-op exam Preoperative examination, unspecified Endometrial cancer (HCC) Malignant neoplasm of corpus uteri, except isthmus NELLY (obstructive sleep apnea) Obstructive sleep apnea (adult) (pediatric) Mixed hyperlipidemia Primary hypertension Unspecified essential hypertension Chronic heart failure with preserved ejection fraction (HCC) Pernicious anemia 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, with long-term current use of insulin (HCC) OAB (overactive bladder)- Primary Hypertonicity of bladder Mixed stress and urge urinary incontinence Mixed incontinence urge and stress (male)(female) Urge incontinence Acute vaginitis Vaginitis and vulvovaginitis, unspecified Type 2 diabetes mellitus with diabetic peripheral angiopathy with gangrene, 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 retirement insulin use (HCC)- Primary 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) Ulcer of calf 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) Ulcer of calf Pre-op evaluation- Primary Preoperative examination, unspecified Depression, unspecified depression type NELLY (obstructive sleep apnea) Obstructive sleep apnea (adult) (pediatric) Mixed hyperlipidemia Primary hypertension Unspecified essential hypertension 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, with long-term current use of insulin (HCC) Chronic heart failure with preserved ejection fraction (HCC) BMI 29.0-29.9,adult Body Mass Index 29.0-29.9, adult History of TIA (transient ischemic attack) Transient ischemic attack (TIA), and cerebral infarction without residual deficits Non-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, 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) Ulcer of lower limb, unspecified Non-pressure chronic ulcer of right lower leg, 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) Ulcer of lower limb, unspecified 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, with long-term current use of insulin (HCC) OAB (overactive bladder)- Primary Hypertonicity of bladder Mixed stress and urge urinary incontinence Mixed incontinence urge and stress (male)(female) Urge incontinence Acute vaginitis Vaginitis and vulvovaginitis, unspecified Type 2 diabetes mellitus with diabetic peripheral angiopathy with gangrene, 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 (HCC)- Primary 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) Ulcer of calf 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) Ulcer of calf Pre-op evaluation- Primary Preoperative examination, unspecified Depression, unspecified depression type NELLY (obstructive sleep apnea) Obstructive sleep apnea (adult) (pediatric) Mixed hyperlipidemia Primary hypertension Unspecified essential hypertension 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, with long-term current use of insulin (HCC) Chronic heart failure with preserved ejection fraction (HCC) BMI 29.0-29.9,adult Body Mass Index 29.0-29.9, adult History of TIA (transient ischemic attack) Transient ischemic attack (TIA), and cerebral infarction without residual deficits Non-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, 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) Ulcer of lower limb, unspecified Non-pressure chronic ulcer of right lower leg, 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) Ulcer of lower limb, unspecified [facility] Diagnosis Pre-op exam Preoperative examination, unspecified Endometrial cancer (HCC) Malignant neoplasm of corpus uteri, except isthmus NELLY (obstructive sleep apnea) Obstructive sleep apnea (adult) (pediatric) Mixed hyperlipidemia Primary hypertension Unspecified essential hypertension Chronic heart failure with preserved ejection fraction (HCC) Pernicious anemia 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, with long-term current use of insulin (HCC) OAB (overactive bladder)- Primary Hypertonicity of bladder Mixed stress and urge urinary incontinence Mixed incontinence urge and stress (male)(female) Urge incontinence Acute vaginitis Vaginitis and vulvovaginitis, unspecified Pre-op evaluation- Primary Preoperative examination, unspecified Depression, unspecified depression type NELLY (obstructive sleep apnea) Obstructive sleep apnea (adult) (pediatric) Mixed hyperlipidemia Primary hypertension Unspecified essential hypertension 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, with long-term current use of insulin ([facility]) Chronic heart failure with preserved ejection fraction (HCC) BMI 29.0-29.9,adult Body Mass Index 29.0-29.9, adult History of TIA (transient ischemic attack) Transient ischemic attack (TIA), and cerebral infarction without residual deficits Type 2 diabetes mellitus with diabetic peripheral angiopathy with gangrene, 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 ([facility])- Primary 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) Ulcer of calf 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) Ulcer of calf Non-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, 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) Ulcer of lower limb, unspecified Non-pressure chronic ulcer of right lower leg, 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) Ulcer of lower limb, unspecified [facility]* Diagnosis Pre-op exam Preoperative examination, unspecified Endometrial cancer (HCC) Malignant neoplasm of corpus uteri, except isthmus NELLY (obstructive sleep apnea) Obstructive sleep apnea (adult) (pediatric) Mixed hyperlipidemia Primary hypertension Unspecified essential hypertension Chronic heart failure with preserved ejection fraction (HCC) Pernicious anemia 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, with long-term current use of insulin (HCC) OAB (overactive bladder)- Primary Hypertonicity of bladder Mixed stress and urge urinary incontinence Mixed incontinence urge and stress (male)(female) Urge incontinence Acute vaginitis Vaginitis and vulvovaginitis, unspecified Pre-op evaluation- Primary Preoperative examination, unspecified Depression, unspecified depression type NELLY (obstructive sleep apnea) Obstructive sleep apnea (adult) (pediatric) Mixed hyperlipidemia Primary hypertension Unspecified essential hypertension 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, with long-term current use of insulin (HCC) Chronic heart failure with preserved ejection fraction (HCC) BMI 29.0-29.9,adult Body Mass Index 29.0-29.9, adult History of TIA (transient ischemic attack) Transient ischemic attack (TIA), and cerebral infarction without residual deficits Type 2 diabetes mellitus with diabetic peripheral angiopathy with gangrene, 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 (HCC)- Primary 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) Ulcer of calf 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) Ulcer of calf Non-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, 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) Ulcer of lower limb, unspecified Non-pressure chronic ulcer of right lower leg, 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) Ulcer of lower limb, unspecified 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, with long-term current use of insulin (HCC) OAB (overactive bladder)- Primary Hypertonicity of bladder Mixed stress and urge urinary incontinence Mixed incontinence urge and stress (male)(female) Urge incontinence Acute vaginitis Vaginitis and vulvovaginitis, unspecified Pre-op evaluation- Primary Preoperative examination, unspecified Depression, unspecified depression type NELLY (obstructive sleep apnea) Obstructive sleep apnea (adult) (pediatric) Mixed hyperlipidemia Primary hypertension Unspecified essential hypertension 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, with long-term current use of insulin (HCC) Chronic heart failure with preserved ejection fraction (HCC) BMI 29.0-29.9,adult Body Mass Index 29.0-29.9, adult History of TIA (transient ischemic attack) Transient ischemic attack (TIA), and cerebral infarction without residual deficits Type 2 diabetes mellitus with diabetic peripheral angiopathy with gangrene, 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 (HCC)- Primary 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) Ulcer of calf 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) Ulcer of calf Non-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, 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) Ulcer of lower limb, unspecified Non-pressure chronic ulcer of right lower leg, 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) Ulcer of lower limb, unspecified [facility] Pre-op exam Preoperative examination, unspecified Endometrial cancer (HCC) Malignant neoplasm of corpus uteri, except isthmus NELLY (obstructive sleep apnea) Obstructive sleep apnea (adult) (pediatric) Mixed hyperlipidemia Primary hypertension Unspecified essential hypertension Chronic heart failure with preserved ejection fraction (HCC) Pernicious anemia 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, with long-term current use of insulin ([facility]) OAB (overactive bladder)- Primary Hypertonicity of bladder Mixed stress and urge urinary incontinence Mixed incontinence urge and stress (male)(female) Urge incontinence Acute vaginitis Vaginitis and vulvovaginitis, unspecified Pre-op evaluation- Primary Preoperative examination, unspecified Depression, unspecified depression type NELLY (obstructive sleep apnea) Obstructive sleep apnea (adult) (pediatric) Mixed hyperlipidemia Primary hypertension Unspecified essential hypertension 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, with long-term current use of insulin (HCC) Chronic heart failure with preserved ejection fraction (HCC) BMI 29.0-29.9,adult Body Mass Index 29.0-29.9, adult History of TIA (transient ischemic attack) Transient ischemic attack (TIA), and cerebral infarction without residual deficits Right foot ulcer, 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)- Primary Non-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, 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) Ulcer of lower limb, unspecified Non-pressure chronic ulcer of right lower leg, 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) Ulcer of lower limb, unspecified documented in [facility] encounter [facility]* Diagnosis Pre-op exam Preoperative examination, unspecified Endometrial cancer (HCC) Malignant neoplasm of corpus uteri, except isthmus NELLY (obstructive sleep apnea) Obstructive sleep apnea (adult) (pediatric) Mixed hyperlipidemia Primary hypertension Unspecified essential hypertension Chronic heart failure with preserved ejection fraction (HCC) Pernicious anemia 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, with long-term current use of insulin (HCC) OAB (overactive bladder)- Primary Hypertonicity of bladder Mixed stress and urge urinary incontinence Mixed incontinence urge and stress (male)(female) Urge incontinence Acute vaginitis Vaginitis and vulvovaginitis, unspecified Pre-op evaluation- Primary Preoperative examination, unspecified Depression, unspecified depression type NELLY (obstructive sleep apnea) Obstructive sleep apnea (adult) (pediatric) Mixed hyperlipidemia Primary hypertension Unspecified essential hypertension 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, with long-term current use of insulin (HCC) Chronic heart failure with preserved ejection fraction (HCC) BMI 29.0-29.9,adult Body Mass Index 29.0-29.9, adult History of TIA (transient ischemic attack) Transient ischemic attack (TIA), and cerebral infarction without residual deficits Type 2 diabetes mellitus with diabetic peripheral angiopathy with gangrene, 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 (HCC)- Primary 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) Ulcer of calf 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) Ulcer of calf Non-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, 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) Ulcer of lower limb, unspecified Non-pressure chronic ulcer of right lower leg, 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) Ulcer of lower limb, unspecified documented in this encounter [facility]* Diagnosis Pre-op exam Preoperative examination, unspecified Endometrial cancer (HCC) Malignant neoplasm of corpus uteri, except isthmus NELLY (obstructive sleep apnea) Obstructive sleep apnea (adult) (pediatric) Mixed hyperlipidemia Primary hypertension Unspecified essential hypertension Chronic heart failure with preserved ejection fraction (HCC) Pernicious anemia 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, with long-term current use of insulin (HCC) OAB (overactive bladder)- Primary Hypertonicity of bladder Mixed stress and urge urinary incontinence Mixed incontinence urge and stress (male)(female) Urge incontinence Acute vaginitis Vaginitis and vulvovaginitis, unspecified Pre-op evaluation- Primary Preoperative examination, unspecified Depression, unspecified depression type NELLY (obstructive sleep apnea) Obstructive sleep apnea (adult) (pediatric) Mixed hyperlipidemia Primary hypertension Unspecified essential hypertension 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, with long-term current use of insulin (HCC) Chronic heart failure with preserved ejection fraction (HCC) BMI 29.0-29.9,adult Body Mass Index 29.0-29.9, adult History of TIA (transient ischemic attack) Transient ischemic attack (TIA), and cerebral infarction without residual deficits Type 2 diabetes mellitus with diabetic peripheral angiopathy with gangrene, 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 (HCC)- Primary 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) Ulcer of calf 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) Ulcer of calf Non-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, 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) Ulcer of lower limb, unspecified Non-pressure chronic ulcer of right lower leg, 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) Ulcer of lower limb, 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, with long-term current use of insulin (HCC) OAB (overactive bladder)- Primary Hypertonicity of bladder Mixed stress and urge urinary incontinence Mixed incontinence urge and stress (male)(female) Urge incontinence Acute vaginitis Vaginitis and vulvovaginitis, unspecified Pre-op evaluation- Primary Preoperative examination, unspecified Depression, unspecified depression type NELLY (obstructive sleep apnea) Obstructive sleep apnea (adult) (pediatric) Mixed hyperlipidemia Primary hypertension Unspecified essential hypertension 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, with long-term current use of insulin (HCC) Chronic heart failure with preserved ejection fraction (HCC) BMI 29.0-29.9,adult Body Mass Index 29.0-29.9, adult History of TIA (transient ischemic attack) Transient ischemic attack (TIA), and cerebral infarction without residual deficits Type 2 diabetes mellitus with diabetic peripheral angiopathy with gangrene, 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 retirement insulin use (HCC)- Primary 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) Ulcer of calf 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) Ulcer of calf Non-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, 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) Ulcer of lower limb, unspecified Non-pressure chronic ulcer of right lower leg, 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) Ulcer of lower limb, unspecified 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, with long-term current use of insulin (HCC) OAB (overactive bladder)- Primary Hypertonicity of bladder Mixed stress and urge urinary incontinence Mixed incontinence urge and stress (male)(female) Urge incontinence Acute vaginitis Vaginitis and vulvovaginitis, unspecified Pre-op evaluation- Primary Preoperative examination, unspecified Depression, unspecified depression type NELLY (obstructive sleep apnea) Obstructive sleep apnea (adult) (pediatric) Mixed hyperlipidemia Primary hypertension Unspecified essential hypertension 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, with long-term current use of insulin (HCC) Chronic heart failure with preserved ejection fraction (HCC) BMI 29.0-29.9,adult Body Mass Index 29.0-29.9, adult History of TIA (transient ischemic attack) Transient ischemic attack (TIA), and cerebral infarction without residual deficits Pernicious anemia Pulmonary hypertension (HCC) Other chronic pulmonary heart diseases Type 2 diabetes mellitus with diabetic peripheral angiopathy with gangrene, 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 (HCC)- Primary 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) Ulcer of calf 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) Ulcer of calf Non-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, 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) Ulcer of lower limb, unspecified Non-pressure chronic ulcer of right lower leg, 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) Ulcer of lower limb, unspecified 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, with long-term current use of insulin ([facility]) OAB (overactive bladder)- Primary Hypertonicity of bladder Mixed stress and urge urinary incontinence Mixed incontinence urge and stress (male)(female) Urge incontinence Acute vaginitis Vaginitis and vulvovaginitis, unspecified Pre-op evaluation- Primary Preoperative examination, unspecified Depression, unspecified depression type NELLY (obstructive sleep apnea) Obstructive sleep apnea (adult) (pediatric) Mixed hyperlipidemia Primary hypertension Unspecified essential hypertension 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, with long-term current use of insulin (HCC) Chronic heart failure with preserved ejection fraction (HCC) BMI 29.0-29.9,adult Body Mass Index 29.0-29.9, adult History of TIA (transient ischemic attack) Transient ischemic attack (TIA), and cerebral infarction without residual deficits Pernicious anemia Pulmonary hypertension (HCC) Other chronic pulmonary heart diseases Chronic heart failure with preserved ejection fraction (HCC)- Primary Primary hypertension Unspecified essential hypertension Mixed hyperlipidemia Non-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, 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) Ulcer of lower limb, unspecified Non-pressure chronic ulcer of right lower leg, 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) Ulcer of lower limb, unspecified [facility] Diagnosis Pre-op exam Preoperative examination, unspecified Endometrial cancer (HCC) Malignant neoplasm of corpus uteri, except isthmus NELLY (obstructive sleep apnea) Obstructive sleep apnea (adult) (pediatric) Mixed hyperlipidemia Primary hypertension Unspecified essential hypertension Chronic heart failure with preserved ejection fraction (HCC) Pernicious anemia 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, with long-term current use of insulin (HCC) OAB (overactive bladder)- Primary Hypertonicity of bladder Mixed stress and urge urinary incontinence Mixed incontinence urge and stress (male)(female) Urge incontinence Acute vaginitis Vaginitis and vulvovaginitis, unspecified Pre-op evaluation- Primary Preoperative examination, unspecified Depression, unspecified depression type NELLY (obstructive sleep apnea) Obstructive sleep apnea (adult) (pediatric) Mixed hyperlipidemia Primary hypertension Unspecified essential hypertension 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, with long-term current use of insulin (HCC) Chronic heart failure with preserved ejection fraction (HCC) BMI 29.0-29.9,adult Body Mass Index 29.0-29.9, adult History of TIA (transient ischemic attack) Transient ischemic attack (TIA), and cerebral infarction without residual deficits Pernicious anemia Pulmonary hypertension (HCC) Other chronic pulmonary heart diseases Left ventricular systolic dysfunction Heart disease, unspecified Regional wall motion abnormality of heart Nonspecific (abnormal) findings on radiological and other examination of other intrathoracic organs [facility] Diagnosis Pre-op exam Preoperative examination, unspecified Endometrial cancer (HCC) Malignant neoplasm of corpus uteri, except isthmus NELLY (obstructive sleep apnea) Obstructive sleep apnea (adult) (pediatric) Mixed hyperlipidemia Primary hypertension Unspecified essential hypertension Chronic heart failure with preserved ejection fraction (HCC) Pernicious anemia 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, with long-term current use of insulin (HCC) OAB (overactive bladder)- Primary Hypertonicity of bladder Mixed stress and urge urinary incontinence Mixed incontinence urge and stress (male)(female) Urge incontinence Acute vaginitis Vaginitis and vulvovaginitis, unspecified Pre-op evaluation- Primary Preoperative examination, unspecified Depression, unspecified depression type NELLY (obstructive sleep apnea) Obstructive sleep apnea (adult) (pediatric) Mixed hyperlipidemia Primary hypertension Unspecified essential hypertension 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, with long-term current use of insulin (HCC) Chronic heart failure with preserved ejection fraction (HCC) BMI 29.0-29.9,adult Body Mass Index 29.0-29.9, adult History of TIA (transient ischemic attack) Transient ischemic attack (TIA), and cerebral infarction without residual deficits Pernicious anemia Pulmonary hypertension (HCC) Other chronic pulmonary heart diseases Type 2 diabetes mellitus with diabetic peripheral angiopathy with gangrene, 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 retirement insulin use (HCC)- Primary 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) Ulcer of calf 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) Ulcer of calf 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, with long-term current use of insulin (HCC) OAB (overactive bladder)- Primary Hypertonicity of bladder Mixed stress and urge urinary incontinence Mixed incontinence urge and stress (male)(female) Urge incontinence Acute vaginitis Vaginitis and vulvovaginitis, unspecified Pre-op evaluation- Primary Preoperative examination, unspecified Depression, unspecified depression type NELLY (obstructive sleep apnea) Obstructive sleep apnea (adult) (pediatric) Mixed hyperlipidemia Primary hypertension Unspecified essential hypertension 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, with long-term current use of insulin (HCC) Chronic heart failure with preserved ejection fraction (HCC) BMI 29.0-29.9,adult Body Mass Index 29.0-29.9, adult History of TIA (transient ischemic attack) Transient ischemic attack (TIA), and cerebral infarction without residual deficits Pernicious anemia Pulmonary hypertension (HCC) Other chronic pulmonary heart diseases Type 2 diabetes mellitus with diabetic peripheral angiopathy with gangrene, 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 retirement insulin use (HCC)- Primary 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) Ulcer of calf 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) Ulcer of calf 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, with long-term current use of insulin (HCC) OAB (overactive bladder)- Primary Hypertonicity of bladder Mixed stress and urge urinary incontinence Mixed incontinence urge and stress (male)(female) Urge incontinence Acute vaginitis Vaginitis and vulvovaginitis, unspecified Pre-op evaluation- Primary Preoperative examination, unspecified Depression, unspecified depression type NELLY (obstructive sleep apnea) Obstructive sleep apnea (adult) (pediatric) Mixed hyperlipidemia Primary hypertension Unspecified essential hypertension 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, with long-term current use of insulin ([facility]) Chronic heart failure with preserved ejection fraction ([facility]) BMI 29.0-29.9,adult Body Mass Index 29.0-29.9, adult History of TIA (transient ischemic attack) Transient ischemic attack (TIA), and cerebral infarction without residual deficits Pernicious anemia Pulmonary hypertension ([facility]) Other chronic pulmonary heart diseases Right foot ulcer, limited to breakdown of skin ([facility])- Primary Wound infection Posttraumatic wound infection not elsewhere classified PVD (peripheral vascular disease) Peripheral vascular disease, unspecified Other acute osteomyelitis, unspecified site ([facility]) Non-prs chr ulcer oth prt r low leg limited to brkdwn skin ([facility]) Venous stasis ulcer of right ankle limited to breakdown of skin, 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 varicose veins present ([facility]) Ulcer of right foot with fat layer exposed ([facility]) Controlled type 2 diabetes mellitus without complication, 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 ([facility]) 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, with fat layer exposed ([facility]) Amputation of right great toe Traumatic amputation of second toe of right foot, subsequent encounter ([facility]) Osteomyelitis of other site, unspecified type ([facility]) documented in this encounter [facility]* Diagnosis Pre-op exam Preoperative examination, unspecified Endometrial cancer (HCC) Malignant neoplasm of corpus uteri, except isthmus NELLY (obstructive sleep apnea) Obstructive sleep apnea (adult) (pediatric) Mixed hyperlipidemia Primary hypertension Unspecified essential hypertension Chronic heart failure with preserved ejection fraction (HCC) Pernicious anemia 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, with long-term current use of insulin (HCC) OAB (overactive bladder)- Primary Hypertonicity of bladder Mixed stress and urge urinary incontinence Mixed incontinence urge and stress (male)(female) Urge incontinence Acute vaginitis Vaginitis and vulvovaginitis, unspecified Pre-op evaluation- Primary Preoperative examination, unspecified Depression, unspecified depression type NELLY (obstructive sleep apnea) Obstructive sleep apnea (adult) (pediatric) Mixed hyperlipidemia Primary hypertension Unspecified essential hypertension 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, with long-term current use of insulin (HCC) Chronic heart failure with preserved ejection fraction (HCC) BMI 29.0-29.9,adult Body Mass Index 29.0-29.9, adult History of TIA (transient ischemic attack) Transient ischemic attack (TIA), and cerebral infarction without residual deficits Pernicious anemia Pulmonary hypertension (HCC) Other chronic pulmonary heart diseases Ulcer of right foot with fat layer exposed (HCC)- Primary Osteomyelitis of other site, unspecified type (HCC) 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, with long-term current use of insulin (HCC) OAB (overactive bladder)- Primary Hypertonicity of bladder Mixed stress and urge urinary incontinence Mixed incontinence urge and stress (male)(female) Urge incontinence Acute vaginitis Vaginitis and vulvovaginitis, unspecified Pre-op evaluation- Primary Preoperative examination, unspecified Depression, unspecified depression type NELLY (obstructive sleep apnea) Obstructive sleep apnea (adult) (pediatric) Mixed hyperlipidemia Primary hypertension Unspecified essential hypertension 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, with long-term current use of insulin (HCC) Chronic heart failure with preserved ejection fraction (HCC) BMI 29.0-29.9,adult Body Mass Index 29.0-29.9, adult History of TIA (transient ischemic attack) Transient ischemic attack (TIA), and cerebral infarction without residual deficits Pernicious anemia Pulmonary hypertension (HCC) Other chronic pulmonary heart diseases Osteomyelitis of hindfoot (HCC)- Primary Unspecified osteomyelitis, ankle and foot [facility] Diagnosis Pre-op exam Preoperative examination, unspecified Endometrial cancer (HCC) Malignant neoplasm of corpus uteri, except isthmus NELLY (obstructive sleep apnea) Obstructive sleep apnea (adult) (pediatric) Mixed hyperlipidemia Primary hypertension Unspecified essential hypertension Chronic heart failure with preserved ejection fraction (HCC) Pernicious anemia 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, with long-term current use of insulin (HCC) OAB (overactive bladder)- Primary Hypertonicity of bladder Mixed stress and urge urinary incontinence Mixed incontinence urge and stress (male)(female) Urge incontinence Acute vaginitis Vaginitis and vulvovaginitis, unspecified Pre-op evaluation- Primary Preoperative examination, unspecified Depression, unspecified depression type NELLY (obstructive sleep apnea) Obstructive sleep apnea (adult) (pediatric) Mixed hyperlipidemia Primary hypertension Unspecified essential hypertension 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, with long-term current use of insulin (HCC) Chronic heart failure with preserved ejection fraction (HCC) BMI 29.0-29.9,adult Body Mass Index 29.0-29.9, adult History of TIA (transient ischemic attack) Transient ischemic attack (TIA), and cerebral infarction without residual deficits Pernicious anemia Pulmonary hypertension (HCC) Other chronic pulmonary heart diseases Type 2 diabetes mellitus with diabetic peripheral angiopathy with gangrene, 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 retirement insulin use ([facility])- Primary 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) Ulcer of calf 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) Ulcer of [facility] Diagnosis Pre-op exam Preoperative examination, unspecified Endometrial cancer (HCC) Malignant neoplasm of corpus uteri, except isthmus NELLY (obstructive sleep apnea) Obstructive sleep apnea (adult) (pediatric) Mixed hyperlipidemia Primary hypertension Unspecified essential hypertension Chronic heart failure with preserved ejection fraction (HCC) Pernicious anemia 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, with long-term current use of insulin (HCC) OAB (overactive bladder)- Primary Hypertonicity of bladder Mixed stress and urge urinary incontinence Mixed incontinence urge and stress (male)(female) Urge incontinence Acute vaginitis Vaginitis and vulvovaginitis, unspecified Pre-op evaluation- Primary Preoperative examination, unspecified Depression, unspecified depression type NELLY (obstructive sleep apnea) Obstructive sleep apnea (adult) (pediatric) Mixed hyperlipidemia Primary hypertension Unspecified essential hypertension 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, with long-term current use of insulin (HCC) Chronic heart failure with preserved ejection fraction (HCC) BMI 29.0-29.9,adult Body Mass Index 29.0-29.9, adult History of TIA (transient ischemic attack) Transient ischemic attack (TIA), and cerebral infarction without residual deficits Pernicious anemia Pulmonary hypertension (HCC) Other chronic pulmonary heart diseases Type 2 diabetes mellitus with diabetic peripheral angiopathy with gangrene, 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 retirement insulin use ([facility])- Primary 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) Ulcer of calf 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) Ulcer of calf 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, with long-term current use of insulin ([facility]) OAB (overactive bladder)- Primary Hypertonicity of bladder Mixed stress and urge urinary incontinence Mixed incontinence urge and stress (male)(female) Urge incontinence Acute vaginitis Vaginitis and vulvovaginitis, unspecified Pre-op evaluation- Primary Preoperative examination, unspecified Depression, unspecified depression type NELLY (obstructive sleep apnea) Obstructive sleep apnea (adult) (pediatric) Mixed hyperlipidemia Primary hypertension Unspecified essential hypertension 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, with long-term current use of insulin (HCC) Chronic heart failure with preserved ejection fraction (HCC) BMI 29.0-29.9,adult Body Mass Index 29.0-29.9, adult History of TIA (transient ischemic attack) Transient ischemic attack (TIA), and cerebral infarction without residual deficits Pernicious anemia Pulmonary hypertension (HCC) Other chronic pulmonary heart diseases Ulcer of left foot with fat layer exposed (HCC)- [facility] Diagnosis Pre-op exam Preoperative examination, unspecified Endometrial cancer (HCC) Malignant neoplasm of corpus uteri, except isthmus NELLY (obstructive sleep apnea) Obstructive sleep apnea (adult) (pediatric) Mixed hyperlipidemia Primary hypertension Unspecified essential hypertension Chronic heart failure with preserved ejection fraction (HCC) Pernicious anemia 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, with long-term current use of insulin (HCC) OAB (overactive bladder)- Primary Hypertonicity of bladder Mixed stress and urge urinary incontinence Mixed incontinence urge and stress (male)(female) Urge incontinence Acute vaginitis Vaginitis and vulvovaginitis, unspecified Pre-op evaluation- Primary Preoperative examination, unspecified Depression, unspecified depression type NELLY (obstructive sleep apnea) Obstructive sleep apnea (adult) (pediatric) Mixed hyperlipidemia Primary hypertension Unspecified essential hypertension 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, with long-term current use of insulin (HCC) Chronic heart failure with preserved ejection fraction (HCC) BMI 29.0-29.9,adult Body Mass Index 29.0-29.9, adult History of TIA (transient ischemic attack) Transient ischemic attack (TIA), and cerebral infarction without residual deficits Pernicious anemia Pulmonary hypertension (HCC) Other chronic pulmonary heart diseases Type 2 diabetes mellitus with diabetic peripheral angiopathy with gangrene, 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 retirement insulin use (HCC)- Primary 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) Ulcer of calf 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) Ulcer of calf [facility] Diagnosis Pre-op exam Preoperative examination, unspecified Endometrial cancer (HCC) Malignant neoplasm of corpus uteri, except isthmus NELLY (obstructive sleep apnea) Obstructive sleep apnea (adult) (pediatric) Mixed hyperlipidemia Primary hypertension Unspecified essential hypertension Chronic heart failure with preserved ejection fraction (HCC) Pernicious anemia 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, with long-term current use of insulin (HCC) OAB (overactive bladder)- Primary Hypertonicity of bladder Mixed stress and urge urinary incontinence Mixed incontinence urge and stress (male)(female) Urge incontinence Acute vaginitis Vaginitis and vulvovaginitis, unspecified Pre-op evaluation- Primary Preoperative examination, unspecified Depression, unspecified depression type NELLY (obstructive sleep apnea) Obstructive sleep apnea (adult) (pediatric) Mixed hyperlipidemia Primary hypertension Unspecified essential hypertension 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, with long-term current use of insulin (HCC) Chronic heart failure with preserved ejection fraction (HCC) BMI 29.0-29.9,adult Body Mass Index 29.0-29.9, adult History of TIA (transient ischemic attack) Transient ischemic attack (TIA), and cerebral infarction without residual deficits Pernicious anemia Pulmonary hypertension (HCC) Other chronic pulmonary heart diseases Type 2 diabetes mellitus with diabetic peripheral angiopathy with gangrene, 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 ([facility])- Primary 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) Ulcer of calf 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) Ulcer of calf [facility] Pre-op exam Preoperative examination, unspecified Endometrial cancer ([facility]) Malignant neoplasm of corpus uteri, except isthmus NELLY (obstructive sleep apnea) Obstructive sleep apnea (adult) (pediatric) Mixed hyperlipidemia Primary hypertension Unspecified essential hypertension Chronic heart failure with preserved ejection fraction (HCC) Pernicious anemia 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, with long-term current use of insulin ([facility]) OAB (overactive bladder)- Primary Hypertonicity of bladder Mixed stress and urge urinary incontinence Mixed incontinence urge and stress (male)(female) Urge incontinence Acute vaginitis Vaginitis and vulvovaginitis, unspecified Pre-op evaluation- Primary Preoperative examination, unspecified Depression, unspecified depression type NELLY (obstructive sleep apnea) Obstructive sleep apnea (adult) (pediatric) Mixed hyperlipidemia Primary hypertension Unspecified essential hypertension 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, with long-term current use of insulin (HCC) Chronic heart failure with preserved ejection fraction (HCC) BMI 29.0-29.9,adult Body Mass Index 29.0-29.9, adult History of TIA (transient ischemic attack) Transient ischemic attack (TIA), and cerebral infarction without residual deficits Pernicious anemia Pulmonary hypertension (HCC) Other chronic pulmonary heart diseases Type 2 diabetes mellitus with diabetic peripheral angiopathy with gangrene, 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 (HCC)- Primary 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) Ulcer of calf 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) Ulcer of calf [facility] Diagnosis Pre-op exam Preoperative examination, unspecified Endometrial cancer (HCC) Malignant neoplasm of corpus uteri, except isthmus NELLY (obstructive sleep apnea) Obstructive sleep apnea (adult) (pediatric) Mixed hyperlipidemia Primary hypertension Unspecified essential hypertension Chronic heart failure with preserved ejection fraction (HCC) Pernicious anemia 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, with long-term current use of insulin (HCC) OAB (overactive bladder)- Primary Hypertonicity of bladder Mixed stress and urge urinary incontinence Mixed incontinence urge and stress (male)(female) Urge incontinence Acute vaginitis Vaginitis and vulvovaginitis, unspecified Pre-op evaluation- Primary Preoperative examination, unspecified Depression, unspecified depression type NELLY (obstructive sleep apnea) Obstructive sleep apnea (adult) (pediatric) Mixed hyperlipidemia Primary hypertension Unspecified essential hypertension 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, with long-term current use of insulin (HCC) Chronic heart failure with preserved ejection fraction (HCC) BMI 29.0-29.9,adult Body Mass Index 29.0-29.9, adult History of TIA (transient ischemic attack) Transient ischemic attack (TIA), and cerebral infarction without residual deficits Pernicious anemia Pulmonary hypertension (HCC) Other chronic pulmonary heart diseases Ulcer of left foot with fat layer exposed (HCC)- Primary [facility] Diagnosis Pre-op exam Preoperative examination, unspecified Endometrial cancer (HCC) Malignant neoplasm of corpus uteri, except isthmus NELLY (obstructive sleep apnea) Obstructive sleep apnea (adult) (pediatric) Mixed hyperlipidemia Primary hypertension Unspecified essential hypertension Chronic heart failure with preserved ejection fraction (HCC) Pernicious anemia 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, with long-term current use of insulin (HCC) OAB (overactive bladder)- Primary Hypertonicity of bladder Mixed stress and urge urinary incontinence Mixed incontinence urge and stress (male)(female) Urge incontinence Acute vaginitis Vaginitis and vulvovaginitis, unspecified Pre-op evaluation- Primary Preoperative examination, unspecified Depression, unspecified depression type NELLY (obstructive sleep apnea) Obstructive sleep apnea (adult) (pediatric) Mixed hyperlipidemia Primary hypertension Unspecified essential hypertension 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, with long-term current use of insulin ([facility]) Chronic heart failure with preserved ejection fraction (HCC) BMI 29.0-29.9,adult Body Mass Index 29.0-29.9, adult History of TIA (transient ischemic attack) Transient ischemic attack (TIA), and cerebral infarction without residual deficits Pernicious anemia Pulmonary hypertension (HCC) Other chronic pulmonary heart diseases Type 2 diabetes mellitus with diabetic peripheral angiopathy with gangrene, 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 retirement insulin use ([facility])- Primary 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) Ulcer of calf 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) Ulcer of calf [facility] Diagnosis Pre-op exam Preoperative examination, unspecified Endometrial cancer ([facility]) Malignant neoplasm of corpus uteri, except isthmus NELLY (obstructive sleep apnea) Obstructive sleep apnea (adult) (pediatric) Mixed hyperlipidemia Primary hypertension Unspecified essential hypertension Chronic heart failure with preserved ejection fraction ([facility]) Pernicious anemia 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, with long-term current use of insulin ([facility]) OAB (overactive bladder)- Primary Hypertonicity of bladder Mixed stress and urge urinary incontinence Mixed incontinence urge and stress (male)(female) Urge incontinence Acute vaginitis Vaginitis and vulvovaginitis, unspecified Pre-op evaluation- Primary Preoperative examination, unspecified Depression, unspecified depression type NELLY (obstructive sleep apnea) Obstructive sleep apnea (adult) (pediatric) Mixed hyperlipidemia Primary hypertension Unspecified essential hypertension 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, with long-term current use of insulin ([facility]) Chronic heart failure with preserved ejection fraction (HCC) BMI 29.0-29.9,adult Body Mass Index 29.0-29.9, adult History of TIA (transient ischemic attack) Transient ischemic attack (TIA), and cerebral infarction without residual deficits Pernicious anemia Pulmonary hypertension (HCC) Other chronic pulmonary heart diseases Type 2 diabetes mellitus with diabetic peripheral angiopathy with gangrene, 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 (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)- Primary 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) Ulcer of calf 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) Ulcer of calf [facility] Diagnosis Pre-op exam Preoperative examination, unspecified Endometrial cancer (HCC) Malignant neoplasm of corpus uteri, except isthmus NELLY (obstructive sleep apnea) Obstructive sleep apnea (adult) (pediatric) Mixed hyperlipidemia Primary hypertension Unspecified essential hypertension Chronic heart failure with preserved ejection fraction (HCC) Pernicious anemia 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, with long-term current use of insulin (HCC) OAB (overactive bladder)- Primary Hypertonicity of bladder Mixed stress and urge urinary incontinence Mixed incontinence urge and stress (male)(female) Urge incontinence Acute vaginitis Vaginitis and vulvovaginitis, unspecified Pre-op evaluation- Primary Preoperative examination, unspecified Depression, unspecified depression type NELLY (obstructive sleep apnea) Obstructive sleep apnea (adult) (pediatric) Mixed hyperlipidemia Primary hypertension Unspecified essential hypertension 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, with long-term current use of insulin (HCC) Chronic heart failure with preserved ejection fraction (HCC) BMI 29.0-29.9,adult Body Mass Index 29.0-29.9, adult History of TIA (transient ischemic attack) Transient ischemic attack (TIA), and cerebral infarction without residual deficits Pernicious anemia Pulmonary hypertension (HCC) Other chronic pulmonary heart diseases Type 2 diabetes mellitus with diabetic peripheral angiopathy with gangrene, 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 (HCC)- Primary 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) Ulcer of calf 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) Ulcer of calf Ulcer of left foot with fat layer exposed (HCC)- Primary Ulcer of right foot with fat layer exposed (HCC) PVD (peripheral vascular disease) Peripheral vascular disease, unspecified Other acute osteomyelitis, unspecified site (HCC) Controlled type 2 diabetes mellitus without complication, 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 retirement insulin use (HCC) 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, with fat layer exposed (HCC) 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, with long-term current use of insulin (HCC) OAB (overactive bladder)- Primary Hypertonicity of bladder Mixed stress and urge urinary incontinence Mixed incontinence urge and stress (male)(female) Urge incontinence Acute vaginitis Vaginitis and vulvovaginitis, unspecified Pre-op evaluation- Primary Preoperative examination, unspecified Depression, unspecified depression type NELLY (obstructive sleep apnea) Obstructive sleep apnea (adult) (pediatric) Mixed hyperlipidemia Primary hypertension Unspecified essential hypertension 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, with long-term current use of insulin (HCC) Chronic heart failure with preserved ejection fraction (HCC) BMI 29.0-29.9,adult Body Mass Index 29.0-29.9, adult History of TIA (transient ischemic attack) Transient ischemic attack (TIA), and cerebral infarction without residual deficits Pernicious anemia Pulmonary hypertension (HCC) Other chronic pulmonary heart diseases Ulcer of left foot with fat layer exposed (HCC)- Primary Ulcer of right foot with fat layer exposed (HCC) PVD (peripheral vascular disease) Peripheral vascular disease, unspecified Other acute osteomyelitis, unspecified site (HCC) Controlled type 2 diabetes mellitus without complication, 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 (HCC) 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, with fat layer exposed (HCC) [facility] Diagnosis Pre-op exam Preoperative examination, unspecified Endometrial cancer (HCC) Malignant neoplasm of corpus uteri, except isthmus NELLY (obstructive sleep apnea) Obstructive sleep apnea (adult) (pediatric) Mixed hyperlipidemia Primary hypertension Unspecified essential hypertension Chronic heart failure with preserved ejection fraction (HCC) Pernicious anemia 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, with long-term current use of insulin (HCC) OAB (overactive bladder)- Primary Hypertonicity of bladder Mixed stress and urge urinary incontinence Mixed incontinence urge and stress (male)(female) Urge incontinence Acute vaginitis Vaginitis and vulvovaginitis, unspecified Pre-op evaluation- Primary Preoperative examination, unspecified Depression, unspecified depression type NELLY (obstructive sleep apnea) Obstructive sleep apnea (adult) (pediatric) Mixed hyperlipidemia Primary hypertension Unspecified essential hypertension 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, with long-term current use of insulin ([facility]) Chronic heart failure with preserved ejection fraction ([facility]) BMI 29.0-29.9,adult Body Mass Index 29.0-29.9, adult History of TIA (transient ischemic attack) Transient ischemic attack (TIA), and cerebral infarction without residual deficits Pernicious anemia Pulmonary hypertension ([facility]) Other chronic pulmonary heart diseases 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, with long-term current use of insulin ([facility]) [facility] Pre-op exam Preoperative examination, unspecified Endometrial cancer ([facility]) Malignant neoplasm of corpus uteri, except isthmus NELLY (obstructive sleep apnea) Obstructive sleep apnea (adult) (pediatric) Mixed hyperlipidemia Primary hypertension Unspecified essential hypertension Chronic heart failure with preserved ejection fraction ([facility]) Pernicious anemia 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, with long-term current use of insulin ([facility]) OAB (overactive bladder)- Primary Hypertonicity of bladder Mixed stress and urge urinary incontinence Mixed incontinence urge and stress (male)(female) Urge incontinence Acute vaginitis Vaginitis and vulvovaginitis, unspecified Pre-op evaluation- Primary Preoperative examination, unspecified Depression, unspecified depression type NELLY (obstructive sleep apnea) Obstructive sleep apnea (adult) (pediatric) Mixed hyperlipidemia Primary hypertension Unspecified essential hypertension 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, with long-term current use of insulin ([facility]) Chronic heart failure with preserved ejection fraction (HCC) BMI 29.0-29.9,adult Body Mass Index 29.0-29.9, adult History of TIA (transient ischemic attack) Transient ischemic attack (TIA), and cerebral infarction without residual deficits Pernicious anemia Pulmonary hypertension ([facility]) Other chronic pulmonary heart diseases Ulcer of right foot with fat layer exposed ([facility])- Primary PVD (peripheral vascular disease) Peripheral vascular disease, unspecified Other acute osteomyelitis, unspecified site (HCC) Controlled type 2 diabetes mellitus without complication, 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 ([facility]) Right foot ulcer, 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) Venous stasis ulcer of right ankle limited to breakdown of skin, 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 varicose veins present (HCC) Wound infection Posttraumatic wound infection not elsewhere classified [facility] Diagnosis Pre-op exam Preoperative examination, unspecified Endometrial cancer (HCC) Malignant neoplasm of corpus uteri, except isthmus NELLY (obstructive sleep apnea) Obstructive sleep apnea (adult) (pediatric) Mixed hyperlipidemia Primary hypertension Unspecified essential hypertension Chronic heart failure with preserved ejection fraction (HCC) Pernicious anemia 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, with long-term current use of insulin ([facility]) OAB (overactive bladder)- Primary Hypertonicity of bladder Mixed stress and urge urinary incontinence Mixed incontinence urge and stress (male)(female) Urge incontinence Acute vaginitis Vaginitis and vulvovaginitis, unspecified Pre-op evaluation- Primary Preoperative examination, unspecified Depression, unspecified depression type NELLY (obstructive sleep apnea) Obstructive sleep apnea (adult) (pediatric) Mixed hyperlipidemia Primary hypertension Unspecified essential hypertension 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, with long-term current use of insulin ([facility]) Chronic heart failure with preserved ejection fraction (HCC) BMI 29.0-29.9,adult Body Mass Index 29.0-29.9, adult History of TIA (transient ischemic attack) Transient ischemic attack (TIA), and cerebral infarction without residual deficits Pernicious anemia Pulmonary hypertension (HCC) Other chronic pulmonary heart diseases Type 2 diabetes mellitus with diabetic peripheral angiopathy with gangrene, 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 retirement insulin use ([facility])- Primary 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) Ulcer of calf 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) Ulcer [facility] Diagnosis Pre-op exam Preoperative examination, unspecified Endometrial cancer (HCC) Malignant neoplasm of corpus uteri, except isthmus NELLY (obstructive sleep apnea) Obstructive sleep apnea (adult) (pediatric) Mixed hyperlipidemia Primary hypertension Unspecified essential hypertension Chronic heart failure with preserved ejection fraction (HCC) Pernicious anemia 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, with long-term current use of insulin ([facility]) OAB (overactive bladder)- Primary Hypertonicity of bladder Mixed stress and urge urinary incontinence Mixed incontinence urge and stress (male)(female) Urge incontinence Acute vaginitis Vaginitis and vulvovaginitis, unspecified Pre-op evaluation- Primary Preoperative examination, unspecified Depression, unspecified depression type NELLY (obstructive sleep apnea) Obstructive sleep apnea (adult) (pediatric) Mixed hyperlipidemia Primary hypertension Unspecified essential hypertension 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, with long-term current use of insulin ([facility]) Chronic heart failure with preserved ejection fraction (HCC) BMI 29.0-29.9,adult Body Mass Index 29.0-29.9, adult History of TIA (transient ischemic attack) Transient ischemic attack (TIA), and cerebral infarction without residual deficits Pernicious anemia Pulmonary hypertension (HCC) Other chronic pulmonary heart diseases 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, with long-term current use of insulin ([facility])- [facility] Pre-op exam Preoperative examination, unspecified Endometrial cancer ([facility]) Malignant neoplasm of corpus uteri, except isthmus NELLY (obstructive sleep apnea) Obstructive sleep apnea (adult) (pediatric) Mixed hyperlipidemia Primary hypertension Unspecified essential hypertension Chronic heart failure with preserved ejection fraction (HCC) Pernicious anemia 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, with long-term current use of insulin ([facility]) OAB (overactive bladder)- Primary Hypertonicity of bladder Mixed stress and urge urinary incontinence Mixed incontinence urge and stress (male)(female) Urge incontinence Acute vaginitis Vaginitis and vulvovaginitis, unspecified Pre-op evaluation- Primary Preoperative examination, unspecified Depression, unspecified depression type NELLY (obstructive sleep apnea) Obstructive sleep apnea (adult) (pediatric) Mixed hyperlipidemia Primary hypertension Unspecified essential hypertension 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, with long-term current use of insulin (HCC) Chronic heart failure with preserved ejection fraction (HCC) BMI 29.0-29.9,adult Body Mass Index 29.0-29.9, adult History of TIA (transient ischemic attack) Transient ischemic attack (TIA), and cerebral infarction without residual deficits Pernicious anemia Pulmonary hypertension (HCC) Other chronic pulmonary heart diseases Type 2 diabetes mellitus with diabetic peripheral angiopathy with gangrene, 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 (HCC)- Primary 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) Ulcer of calf 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) Ulcer of calf [facility] Diagnosis Pre-op exam Preoperative examination, unspecified Endometrial cancer (HCC) Malignant neoplasm of corpus uteri, except isthmus NELLY (obstructive sleep apnea) Obstructive sleep apnea (adult) (pediatric) Mixed hyperlipidemia Primary hypertension Unspecified essential hypertension Chronic heart failure with preserved ejection fraction (HCC) Pernicious anemia 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, with long-term current use of insulin (HCC) OAB (overactive bladder)- Primary Hypertonicity of bladder Mixed stress and urge urinary incontinence Mixed incontinence urge and stress (male)(female) Urge incontinence Acute vaginitis Vaginitis and vulvovaginitis, unspecified Pre-op evaluation- Primary Preoperative examination, unspecified Depression, unspecified depression type NELLY (obstructive sleep apnea) Obstructive sleep apnea (adult) (pediatric) Mixed hyperlipidemia Primary hypertension Unspecified essential hypertension 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, with long-term current use of insulin (HCC) Chronic heart failure with preserved ejection fraction (HCC) BMI 29.0-29.9,adult Body Mass Index 29.0-29.9, adult History of TIA (transient ischemic attack) Transient ischemic attack (TIA), and cerebral infarction without residual deficits Pernicious anemia Pulmonary hypertension (HCC) Other chronic pulmonary heart diseases Type 2 diabetes mellitus with diabetic peripheral angiopathy with gangrene, 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 (HCC)- Primary 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) Ulcer of calf 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) Ulcer of calf [facility] Diagnosis Pre-op exam Preoperative examination, unspecified Endometrial cancer (HCC) Malignant neoplasm of corpus uteri, except isthmus NELLY (obstructive sleep apnea) Obstructive sleep apnea (adult) (pediatric) Mixed hyperlipidemia Primary hypertension Unspecified essential hypertension Chronic heart failure with preserved ejection fraction (HCC) Pernicious anemia 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, with long-term current use of insulin (HCC) OAB (overactive bladder)- Primary Hypertonicity of bladder Mixed stress and urge urinary incontinence Mixed incontinence urge and stress (male)(female) Urge incontinence Acute vaginitis Vaginitis and vulvovaginitis, unspecified Pre-op evaluation- Primary Preoperative examination, unspecified Depression, unspecified depression type NELLY (obstructive sleep apnea) Obstructive sleep apnea (adult) (pediatric) Mixed hyperlipidemia Primary hypertension Unspecified essential hypertension 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, with long-term current use of insulin (HCC) Chronic heart failure with preserved ejection fraction (HCC) BMI 29.0-29.9,adult Body Mass Index 29.0-29.9, adult History of TIA (transient ischemic attack) Transient ischemic attack (TIA), and cerebral infarction without residual deficits Pernicious anemia Pulmonary hypertension (HCC) Other chronic pulmonary heart diseases Type 2 diabetes mellitus with diabetic peripheral angiopathy with gangrene, 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 (HCC)- Primary 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) Ulcer of calf 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) Ulcer of calf [facility] Diagnosis Pre-op exam Preoperative examination, unspecified Endometrial cancer (HCC) Malignant neoplasm of corpus uteri, except isthmus NELLY (obstructive sleep apnea) Obstructive sleep apnea (adult) (pediatric) Mixed hyperlipidemia Primary hypertension Unspecified essential hypertension Chronic heart failure with preserved ejection fraction (HCC) Pernicious anemia 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, with long-term current use of insulin (HCC) OAB (overactive bladder)- Primary Hypertonicity of bladder Mixed stress and urge urinary incontinence Mixed incontinence urge and stress (male)(female) Urge incontinence Acute vaginitis Vaginitis and vulvovaginitis, unspecified Pre-op evaluation- Primary Preoperative examination, unspecified Depression, unspecified depression type NELLY (obstructive sleep apnea) Obstructive sleep apnea (adult) (pediatric) Mixed hyperlipidemia Primary hypertension Unspecified essential hypertension 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, with long-term current use of insulin (HCC) Chronic heart failure with preserved ejection fraction (HCC) BMI 29.0-29.9,adult Body Mass Index 29.0-29.9, adult History of TIA (transient ischemic attack) Transient ischemic attack (TIA), and cerebral infarction without residual deficits Pernicious anemia Pulmonary hypertension (HCC) Other chronic pulmonary heart diseases Ulcer of right foot with fat layer exposed ([facility])- Primary [facility] Diagnosis Pre-op exam Preoperative examination, unspecified Endometrial cancer (HCC) Malignant neoplasm of corpus uteri, except isthmus NELLY (obstructive sleep apnea) Obstructive sleep apnea (adult) (pediatric) Mixed hyperlipidemia Primary hypertension Unspecified essential hypertension Chronic heart failure with preserved ejection fraction (HCC) Pernicious anemia 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, with long-term current use of insulin ([facility]) OAB (overactive bladder)- Primary Hypertonicity of bladder Mixed stress and urge urinary incontinence Mixed incontinence urge and stress (male)(female) Urge incontinence Acute vaginitis Vaginitis and vulvovaginitis, unspecified Pre-op evaluation- Primary Preoperative examination, unspecified Depression, unspecified depression type NELLY (obstructive sleep apnea) Obstructive sleep apnea (adult) (pediatric) Mixed hyperlipidemia Primary hypertension Unspecified essential hypertension 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, with long-term current use of insulin (HCC) Chronic heart failure with preserved ejection fraction (HCC) BMI 29.0-29.9,adult Body Mass Index 29.0-29.9, adult History of TIA (transient ischemic attack) Transient ischemic attack (TIA), and cerebral infarction without residual deficits Pernicious anemia Pulmonary hypertension (HCC) Other chronic pulmonary heart diseases Type 2 diabetes mellitus with diabetic peripheral angiopathy with gangrene, 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 ([facility])- Primary 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) Ulcer of calf 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) Ulcer of calf [facility] Diagnosis Pre-op exam Preoperative examination, unspecified Endometrial cancer (HCC) Malignant neoplasm of corpus uteri, except isthmus NELLY (obstructive sleep apnea) Obstructive sleep apnea (adult) (pediatric) Mixed hyperlipidemia Primary hypertension Unspecified essential hypertension Chronic heart failure with preserved ejection fraction (HCC) Pernicious anemia 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, with long-term current use of insulin (HCC) OAB (overactive bladder)- Primary Hypertonicity of bladder Mixed stress and urge urinary incontinence Mixed incontinence urge and stress (male)(female) Urge incontinence Acute vaginitis Vaginitis and vulvovaginitis, unspecified Pre-op evaluation- Primary Preoperative examination, unspecified Depression, unspecified depression type NELLY (obstructive sleep apnea) Obstructive sleep apnea (adult) (pediatric) Mixed hyperlipidemia Primary hypertension Unspecified essential hypertension 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, with long-term current use of insulin (HCC) Chronic heart failure with preserved ejection fraction (HCC) BMI 29.0-29.9,adult Body Mass Index 29.0-29.9, adult History of TIA (transient ischemic attack) Transient ischemic attack (TIA), and cerebral infarction without residual deficits Pernicious anemia Pulmonary hypertension (HCC) Other chronic pulmonary heart diseases Type 2 diabetes mellitus with diabetic peripheral angiopathy with gangrene, 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 retirement insulin use (HCC)- Primary 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) Ulcer of calf 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) Ulcer of calf 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, with long-term current use of insulin (HCC) OAB (overactive bladder)- Primary Hypertonicity of bladder Mixed stress and urge urinary incontinence Mixed incontinence urge and stress (male)(female) Urge incontinence Acute vaginitis Vaginitis and vulvovaginitis, unspecified Pre-op evaluation- Primary Preoperative examination, unspecified Depression, unspecified depression type NELLY (obstructive sleep apnea) Obstructive sleep apnea (adult) (pediatric) Mixed hyperlipidemia Primary hypertension Unspecified essential hypertension 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, with long-term current use of insulin (HCC) Chronic heart failure with preserved ejection fraction (HCC) BMI 29.0-29.9,adult Body Mass Index 29.0-29.9, adult History of TIA (transient ischemic attack) Transient ischemic attack (TIA), and cerebral infarction without residual deficits Pernicious anemia Pulmonary hypertension (HCC) Other chronic pulmonary heart diseases Type 2 diabetes mellitus with diabetic peripheral angiopathy with gangrene, 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 retirement insulin use (HCC)- Primary 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) Ulcer of calf 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) Ulcer of calf 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, with long-term current use of insulin (HCC) OAB (overactive bladder)- Primary Hypertonicity of bladder Mixed stress and urge urinary incontinence Mixed incontinence urge and stress (male)(female) Urge incontinence Acute vaginitis Vaginitis and vulvovaginitis, unspecified Pre-op evaluation- Primary Preoperative examination, unspecified Depression, unspecified depression type NELLY (obstructive sleep apnea) Obstructive sleep apnea (adult) (pediatric) Mixed hyperlipidemia Primary hypertension Unspecified essential hypertension 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 * Shade is a 61 year old female presenting for a follow up on diabetes and blood work. * - Sees Dr. Cerrato for diabetes - insulin was changed but she has not followed up since. * - I never know what doctors to go to. * - She has not seen Dr. Cerrato since March 2021 * - She claims to have been under the impression that she had to come to her PCP for everything and offers this as the reason she has not followed up with Dr. Cerrato. * - States she came here today to get Librea 14 for blood sugars and to have blood work done - She feels that Librea 14 will be of great help to her. * - Had an episode of SOB and lower extremity edema on 09/06/2021 - states she called a Dr. Baeza (?) on 09/08/2021 and received bad advice. She states she did not make any calls about this before 09/08/2021. She also consulted her friend who she states is an RN - was told to call office help-line. She ultimately did not end up going to ER and states she got progressively better over the days following the episode. * - She states she has been trying to get an appointment both with us - I will be a month behind nowbecause I cannot get an appointment right away. Despite her not coming to follow up with me for over a year. * - She claims I try to do what I am supposed to do but nobody helps me. * - She also states I never like to come here because I have to wait forever to get in. * - She expresses a desire to talk to the office manage today. [facility] Work Phone: History of Present illness Narrative* EP. Here for swelling in lower extremities and shortness of breath when walking. * Shade is a 61 year old female presenting today for LE swelling and SOB with exertion. * -developed sores on her legs after getting her toe nails trimmed and was given mist treaments. * -vein tests were ordered by Hu Barraza at [facility] as well as compression stockings. * -has been getting her legs wrapped since the first time she has seen Dr. Barraza, tomorrow will be the third. She wraps her leg due to excess fluid and feel the patient should be on a water pill. * -lays in a recliner at home to sleep. * -patient thinks she may have sleep apnea due to waking from her sleep every 2 hours at night. * -met with Dr. Cerrato in September 2021. * -had an incident where she fell on her back and had trouble breathing, resulting in a visit to the ER. There she had a CXR done that as normal, but found an elevated glucose and dehydration. * -her sugars have been fluctuating lately and she has been trying to get them under control. * -she is compliant with all of her current medications and regimens. * -no longer taking NovoLog. [facility] Work Phone: History of Present illness Narrative* EP. Here for swelling in lower extremities and shortness of breath when walking. * Shade is a 61 year old female presenting today for LE swelling and SOB with exertion. * -developed sores on her legs after getting her toe nails trimmed and was given mist treaments. * -vein tests were ordered by Hu Barraza at [facility] as well as compression stockings. * -has been getting her legs wrapped since the first time she has seen Dr. Barraza, tomorrow will be the third. She wraps her leg due to excess fluid and feel the patient should be on a water pill. * -lays in a recliner at home to sleep. * -patient thinks she may have sleep apnea due to waking from her sleep every 2 hours at night. * -met with Dr. Cerrato in September 2021. * -had an incident where she fell on her back and had trouble breathing, resulting in a visit to the ER. There she had a CXR done that as normal, but found an elevated glucose and dehydration. * -her sugars have been fluctuating lately and she has been trying to get them under control. * -she is compliant with all of her current medications and regimens. * -no longer taking NovoLog. [facility] Work Phone: History of Present illness Narrative* EP. Here for swelling in lower extremities and shortness of breath when walking. * Shade is a 61 year old female presenting today for LE swelling and SOB with exertion. * -h/o non-compliant diabetic - I do not see patient regularly and she follows up with her aircraft hydraulic equipment mechanic very irregularly * -developed sores on her legs - been going to [facility] /[facility]; vein tests were ordered as well as compression stockings; has been getting her legs wrapped since the first time she has seen Barraza, tomorrow will be the third time. Hu questioned if she should be on a water pill which prompted today's visit * -lays in a recliner at home to sleep * -poor sleep: wakes from her sleep every 2 hours * -saw Dr. Cerrato in September 2021- Basaglar was d/c and regular insulin prescribed; her sugars have been fluctuating lately and she has been trying to get them under control. * -pt requesting COVID antibody test- I explained how a positive result does not mean she is protected nor does a negative result mean she did not have COVID [facility] Work Phone: History of Present illness Narrative* EP. Here for swelling in lower extremities and shortness of breath when walking. * Shade is a 61 year old female presenting today for LE swelling and SOB with exertion. * -h/o non-compliant diabetic - I do not see patient regularly and she follows up with her aircraft hydraulic equipment mechanic very irregularly * -developed sores on her legs - been going to [facility] at /[facility]; vein tests were ordered as well as compression stockings; has been getting her legs wrapped since the first time she has seen Madi, tomorrow will be the third time. Hu questioned if she should be on a water pill which prompted today's visit * -lays in a recliner at home to sleep * -poor sleep: wakes from her sleep every 2 hours * -saw Dr. Cerrato in September 2021- Basaglar was d/c and regular insulin prescribed; her sugars have been fluctuating lately and she has been trying to get them under control. * -pt requesting COVID antibody test- I explained how a positive result does not mean she is protected nor does a negative result mean she did not have COVID [facility] Work Phone: History of Present illness Narrative* EP. Here for swelling in lower extremities and shortness of breath when walking. * Shade is a 61 year old female presenting today for LE swelling and SOB with exertion. * -h/o non-compliant diabetic - I do not see patient regularly and she follows up with her aircraft hydraulic equipment mechanic very irregularly * -developed sores on her legs - been going to [facility]; vein tests were ordered as well as compression stockings; has been getting her legs wrapped since the first time she has seen Madi, tomorrow will be the third time. Hu questioned if she should be on a water pill which prompted today's visit * -lays in a recliner at home to sleep * -poor sleep: wakes from her sleep every 2 hours * -saw Dr. Cerrato in September 2021- Basaglar was d/c and regular insulin prescribed; her sugars have been fluctuating lately and she has been trying to get them under control. * -pt requesting COVID antibody test- I explained how a positive result does not mean she is protected nor does a negative result mean she did not have COVID [facility] Work Phone: History of Present illness Narrative* Cardiovascular Medical History: * BMI 36.77, Dyslipidemia, T2DM * Shade Brambila1960 * NURSING NOTES * Labs: * Date [id number](a) * [id number]%417.7 * 02/11/22 77 * [id number] * Cardiovascular History: LVEF: 55-60% and Date: 02/19/22 * No sleep apnea. * Cardiovascular SOC Pharmacologic Therapy: OLEGARIO/ARB, statin and diuretic * Diabetes Mellitus Type: II * Diabetes And Metabolic History: date of diagnosis: 2007, current treatment: Metformin, Humulin and family history of Diabetes Mellitus: Maternal, AUnts, Uncles,Brother * Relations Manager: Dr. Giovanni Claderón * Self-Monitoring of Blood Glucose: home monitoring times a day, Continuous glucose monitoring: , Device: Libre2 * No frequent mycotic infections. * Eyes: has yearly exams, last exam: 04/2021, Provider: Dr. Madrid, but no retinopathy * Foot Care: pedal edema present, neuropathy * [employer]: Dr. Crawford * Foot Care: history of wounds * Nutrition/Dietary: no diabetes self-management education in the past 12 months, no GI concerns/issues [id number] Iris Shahid [address] [place] Work Phone: Reason for referral (narrative)* Outpatient Procedure (Routine) - Authorized Specialty Diagnoses / Procedures [facility] To [facility] [place] Diagnoses PVD (peripheral vascular disease) (HCC) Venous stasis ulcer of ankle limited to breakdown of skin, unspecified laterality, 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 varicose veins present (HCC) Procedures PVR LEG JOSE M VAS LAB NON-INVASIVE PHYSIOLOGIC STUDY EXTREMITY 3 LEVLS Giovanni Bolanos DPM [address] [place] [address] [address] Referral ID Status Reason Start Date Expiration Date Visits Requested Visits Authorized [id number] Authorized Auto-Generat ed Referral 12/16/2021 12/16/2022 1 1 * Outpatient Procedure (Routine) - Authorized Specialty Diagnoses / Procedures [facility] To Contact [facility] Diagnoses PVD (peripheral vascular disease) (HCC) Venous stasis ulcer of ankle limited to breakdown of skin, unspecified laterality, 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 varicose veins present ([facility]) Procedures US VENOUS INCOMPETENCY JOSE M VAS LAB DUP-SCAN XTR VEINS COMPLETE BILATERAL STUDY Giovanni Bolanos DPM [address] [place] [address] [place] [id number] Referral ID Status Reason Start Date Expiration Date Visits Requested Visits Authorized [id number] Authorized Auto-Generat ed Referral 12/16/2021 12/16/2022 1 1 [facility] for referral (narrative)* Diagnostic Procedure Only (Routine) - Authorized Specialty Diagnoses / Procedures Referred By [facility] Referred To Contact MOLECULAR & FUNCTIONAL IMAGING Diagnoses Chronic heart failure with preserved ejection fraction (HCC) Primary hypertension Mixed hyperlipidemia 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, with long-term current use of insulin (HCC) Venous stasis ulcers of both lower extremities (HCC) Abnormal ankle brachial index (MANJEET) Abnormal electrocardiogram Procedures NM CARDIAC PERF STRESS/PHARM MYOCARDIAL SPECT MULTIPLE STUDIES Viktoriya, Olegario Garland, DO [address] [place] [address] Molecular & Functional Imaging [address] [place] [address] Referral ID Status Reason Start Date Expiration Date Visits Requested Visits Authorized [id number] Authorized Auto-Generat ed Referral 04/22/2022 05/22/2023 1 1 * Consult, Test, Treat (Routine) - Pending Review Specialty Diagnoses / Procedures Referred By Castro tsai Referred To Contact Vascular Surgery Diagnoses Abnormal ankle brachial index (MANJEET) Procedures CONSULT TO VASCULAR SURGERY OFFICE/OUTPATIENT [facility] 60-74 MINUTES Olegario Sadler DO [address] [place] [address] Referral ID Status Reason Start Date Expiration Date Visits Requested Visits Authorized [id number] Pending Review PCP Requested Referral 04/22/2022 04/22/2023 1 1 * Consult, Test, Treat (Routine) - Pending Review Specialty Diagnoses / Procedures Referred By Castro tsai Referred To Contact Diagnoses 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, with long-term current use of insulin (HCC) Procedures CONSULT TO NUTRITION SERVICES AT [facility] OFFICE/OUTPATIENT [facility] 60-74 MINUTES Olegario Sadler DO [address] [place] [address] Referral ID Status Reason Start Date Expiration Date Visits Requested Visits Authorized [id number] Pending Review PCP Requested Referral 04/22/2022 04/22/2023 1 1 * Outpatient Procedure (Routine) - Closed Specialty Diagnoses / Procedures Referred By Castro tsai Referred To Contact [facility] Diagnoses Chronic heart failure with preserved ejection fraction (HCC) Procedures ECG COMPLETE ECG ROUTINE ECG W/LEAST 12 LDS W/I&R Olegario Sadler DO [address] [place] [address] [facility] [place] [address] [place] [address] Referral ID Status Reason Start Date Expiration Date V isits Requested Visits Authorized [id number] Closed Auto-Generate d Referral 04/22/2022 04/22/2023 1 1 [facility] for referral (narrative)* Diagnostic Procedure Only (Routine) - Closed Specialty Diagnoses / Procedures Referred By Contac t Referred To Contact MOLECULAR & FUNCTIONAL IMAGING Diagnoses Chronic heart failure with preserved ejection fraction (HCC) Primary hypertension Mixed hyperlipidemia 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, with long-term current use of insulin (HCC) Venous stasis ulcers of both lower extremities (HCC) Abnormal ankle brachial index (MANJEET) Abnormal electrocardiogram Procedures NM CARDIAC PERF STRESS/PHARM MYOCARDIAL SPECT MULTIPLE STUDIES Olegario Sadler DO [address] [place] [address] Molecular [facility] Imaging [address] [place] [address] Referral ID Status Reason Start Date Expiration Date V isits Requested Visits Authorized [id number] Closed Auto-Generate d Referral 04/22/2022 05/22/2023 1 1 [facility] for referral (narrative)* Outpatient Procedure (Routine) - Pending Review Specialty Diagnoses / Procedures Referred By Contac t Referred To Contact [facility] Diagnoses Screening for colon cancer Procedures COLONOSCOPY SCREENING COLONOSCOPY FLX DX W/COLLJ SPEC WHEN PFRMD Eldon Gill DO [address] [facility] [place] [address] [facility] [place] [address] [place] [address] Referral ID Status Reason Start Date Expiration Date Visits Requested Visits Authorized [id number] Pending Review Auto-Generat ed Referral 2 08/20/2023 [address] [facility] for referral (narrative)* Diagnostic Procedure Only (Routine) - Pending Review Specialty Diagnoses / Procedures Referred By Contac t Referred To Contact XR IMAGING Diagnoses PVD (peripheral vascular disease) (HCC) Ulcer of right foot with fat layer exposed (HCC) Amputation of right great toe (HCC) Traumatic amputation of second toe of right foot, subsequent encounter (HCC) Right foot ulcer, 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) Procedures XR FOOT GENERAL 3V AP/LAT/OBL RIGHT RADEX FOOT COMPLETE MINIMUM 3 VIEWS Hu Pickard DPM [address] [facility], [address] [place] [address] Xr Imaging Referral ID Status Reason Start Date Expiration Date Visits Requested Visits Authorized [id number] Pending Review Auto-Generat ed Referral 11/16/2022 12/16/2023 1 1 [facility] for referral (narrative)* Diagnostic Procedure Only (Routine) - Closed Specialty Diagnoses / Procedures Referred By Contac t Referred To Contact XR IMAGING Diagnoses PVD (peripheral vascular disease) (HCC) Ulcer of right foot with fat layer exposed (HCC) Amputation of right great toe (HCC) Traumatic amputation of second toe of right foot, subsequent encounter (HCC) Right foot ulcer, 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) Procedures XR FOOT GENERAL 3V AP/LAT/OBL RIGHT RADEX FOOT COMPLETE MINIMUM 3 VIEWS Hu Pickard DPM [address] [facility], [address] [place] [address] Xr Imaging Referral ID Status Reason Start Date Expiration Date V isits Requested Visits Authorized [id number] Closed Auto-Generate d Referral 11/16/2022 12/16/2023 1 1 [facility] for referral (narrative)* Diagnostic Procedure Only (Routine) - Pending Review Specialty Diagnoses / Procedures Referred By Contact Referred To Contact MOLECULAR & FUNCTIONAL IMAGING Diagnoses Chronic heart failure with preserved ejection fraction (HCC) Procedures NM CARDIAC PERF STRESS/PHARM MYOCARDIAL SPECT MULTIPLE STUDIES Ayan Wallis APRN.HEEL CURVER [address] [place] [address] Molecular [facility] Imaging [address] [place] [address] Referral ID Status Reason Start Date Expiration Date Visits Requested Visits Authorized [id number] Pending Review Auto-Generat ed Referral 12/29/2022 01/28/2024 1 1 [facility] for referral (narrative)* Diagnostic Procedure Only (Routine) - Closed Specialty Diagnoses / Procedures Referred By Contact Referred To Contact MOLECULAR & FUNCTIONAL IMAGING Diagnoses Chronic heart failure with preserved ejection fraction (HCC) Procedures NM CARDIAC PERF STRESS/PHARM MYOCARDIAL SPECT MULTIPLE STUDIES Ayan Wallis APRN.HEEL CURVER [address] [place] [address] [facility] [address] [place] [address] Referral ID Status Reason Start Date Expiration Date V isits Requested Visits Authorized [id number] Closed Auto-Generate d Referral 12/29/2022 01/28/2024 1 1 [facility] for referral (narrative)* Diagnostic Procedure Only (Routine) - Pending Review Specialty Diagnoses / Procedures Referred By Contac t Referred To Contact BR IMAGING Diagnoses Encounter for screening mammogram for breast cancer Procedures VALENTINO SCREENING W GUDELIA SCREENING DIGITAL BREAST TOMOSYNTHESIS BI SCREENING MAMMOGRAPHY BI 2-VIEW BREAST INC Eldon Redmond DO [address] [facility] [place] [address] [facility] [address] [place] [address] Referral ID Status Reason Start Date Expiration Date Visits Requested Visits Authorized [id number] Pending Review Auto-Generat ed Referral 10/27/2023 11/25/2024 1 1 [facility] for referral (narrative)* Outpatient Procedure (Routine) - Outside PCP Specialty Diagnoses / Procedures Referred By Contac t Referred To Contact [facility] Diagnoses PVD (peripheral vascular disease) (HCC) Procedures PVR LEG JOSE M VAS LAB PVR LEG JOSE M VAS LAB NON-INVASIVE PHYSIOLOGIC STUDY EXTREMITY 3 Berny Marcum DPM [address] [facility] [address] [place] [address] [address] Referral ID Status Reason Start Date Expiration Date Visits Requested Visits Authorized [id number] Outside PCP Auto-Generat ed Referral 03/01/2024 03/01/2025 1 1 [facility] for referral (narrative)* Outpatient Procedure (Routine) - Pending Review Specialty Diagnoses / Procedures Referred By Contac t Referred To Contact [facility] Diagnoses Screening for colon cancer Procedures COLONOSCOPY SCREENING COLONOSCOPY FLX DX W/COLLJ SPEC WHEN PFRMD Eldon Gill DO [address] [facility] [place] [address] [facility] Disease [address] [address] Referral ID Status Reason Start Date Expiration Date Visits Requested Visits Authorized [id number] Pending Review Auto-Generat ed Referral 02/09/2024 02/08/2025 1 1 [facility] for referral (narrative)* Outpatient Procedure (Routine) - New Request Specialty Diagnoses / Procedures Referred By Contac t Referred To Contact [facility] [place] Diagnoses Chronic heart failure with preserved ejection fraction (HCC) Procedures ECHO ECHO TTHRC R-T 2D W/WOM-MODE COMPL SPEC&COLR D Ayan Wallis APRN.HEEL CURVER [address] [place] [address] [address] Referral ID Status Reason Start Date Expiration Date Visits Requested Visits Authorized [id number] New Request Auto-Generat ed Referral 06/30/2025 1 1 [facility] for referral (narrative)No reason for referral information availableWM[facility]ruder [facility] Work Phone: Reason for visit Narrative* Diagnostic Procedure Only (Routine) - Closed Specialty Diagnoses / Procedures Referred By Contchuck t Referred To Contact MOLECULAR & FUNCTIONAL IMAGING Diagnoses Chronic heart failure with preserved ejection fraction (HCC) Primary hypertension Mixed hyperlipidemia 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, with long-term current use of insulin (HCC) Venous stasis ulcers of both lower extremities (HCC) Abnormal ankle brachial index (MANJEET) Abnormal electrocardiogram Procedures NM CARDIAC PERF STRESS/PHARM MYOCARDIAL SPECT MULTIPLE STUDIES Olegario Sadler, [address] [address] Molecular & Functional Imaging [address] [place] [address] Referral ID Status Reason Start Date Expiration Date V isits Requested Visits Authorized [id number] Closed Auto-Generate d Referral 04/22/2022 05/22/2023 1 1 [facility] for visit Narrative* Diagnostic Procedure Only (Routine) - Closed Specialty Diagnoses / Procedures Referred By Castro tsai Referred To Contact XR IMAGING Diagnoses PVD (peripheral vascular disease) (HCC) Ulcer of right foot with fat layer exposed (HCC) Amputation of right great toe (HCC) Traumatic amputation of second toe of right foot, subsequent encounter (HCC) Right foot ulcer, 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) Procedures XR FOOT GENERAL 3V AP/LAT/OBL RIGHT RADEX FOOT COMPLETE MINIMUM 3 VIEWS Hu Pickard DPM [address] [facility], [address] [address] Xr Imaging Referral ID Status Reason Start Date Expiration Date V isits Requested Visits Authorized [id number] Closed Auto-Generate d Referral 11/16/2022 12/16/2023 1 1 [facility] for visit Narrative* Diagnostic Procedure Only (Routine) - Closed Specialty Diagnoses / Procedures Referred By Contact Referred To Contact MOLECULAR & FUNCTIONAL IMAGING Diagnoses Chronic heart failure with preserved ejection fraction (HCC) Procedures NM CARDIAC PERF STRESS/PHARM MYOCARDIAL SPECT MULTIPLE STUDIES Ayan Wallis APRN.HEEL CURVER [address] [place] [address] Molecular [facility] Functional Imaging [address] [place] [address] Referral ID Status Reason Start Date Expiration Date V isits Requested Visits Authorized [id number] Closed Auto-Generate d Referral 12/29/2022 01/28/2024 1 1 [facility] for visit Narrative* Diagnostic Procedure Only (Routine) - Closed Specialty Diagnoses / Procedures Referred By Castro tsai Referred To Contact [facility] Diagnoses Postmenopausal bleeding Procedures PELVIC US WHI US PELVIC NONOBSTETRIC REAL-TIME IMAGE COMPLETE Violetta Jimenez PA-C [address] [place] [address] [facility] [address] [place] [address] Referral ID Status Reason Start Date Expiration Date V isits Requested Visits Authorized [id number] Closed Auto-Generate d Referral 03/29/2023 03/28/2024 1 1 [facility] for visit Narrative* Consult, Test, Treat (Routine) - Closed Specialty Diagnoses / Procedures Referred By Castro tsai Referred To Contact [facility] Diagnoses Left ventricular systolic dysfunction Regional wall motion abnormality of heart Procedures ECHO LIMITED ECHO TRANSTHORAC R-T 2D W/WO M-MODE REC COMP Shanel Newell, FINANCIAL REPORTING ANALYST.HEEL CURVER [address] [place] [address] Phone: tel: fax: [place] [address] Referral ID Status Reason Start Date Expiration Date V isits Requested Visits Authorized [id number] Closed Auto-Generate d Referral 12/14/2024 09/05/2025 1 1 [facility] for visit Narrative* Injectable (Routine) - Closed Specialty Diagnoses / Procedures Referred By Castro tsai Referred To Contact [facility]ology / [facility] Diagnoses 1st dose antibiotics, Dr Barnes Procedures antibiotics [facility] [address] [place] [address] Phone: tel: Referral ID Status Reason Start Date Expiration Date Visits Re quested Visits Authorized [id number] Closed 12/22/2024 03/22/2025 1 1 [facility] Summary Purpose Family History No Family History Records FoundUnknown Family Member Name Dates Details Hypertension: Mother(V17.49) Status:Active Hypertension: Father(V17.49) Status:Active Cardiac Failure: Father Status:Active Acute Myocardial Infarction: Family History(V17.3) Comments:PT listed history f or Aunt or Uncle.; Status:Active Cancer: Family History Comments:PT listed history f or Sibling.; Status:Active Unknown Family Member Name Dates Details Hypertension: Mother(V17.49) Status:Active Hypertension: Father(V17.49) Status:Active Cardiac Failure: Father Status:Active Acute Myocardial Infarction: Family History(V17.3) Comments:PT listed history f or Aunt or Uncle.; Status:Active Cancer: Family History Comments:PT listed history f or Sibling.; Status:Active Unknown Family Member Name Dates Details Hypertension: Mother(V17.49) Status:Active Hypertension: Father(V17.49) Status:Active Cardiac Failure: Father Status:Active Acute Myocardial Infarction: Family History(V17.3) Comments:PT listed history f or Aunt or Uncle.; Status:Active Cancer: Family History Comments:PT listed history f or Sibling.; Status:Active Unknown Family Member Name Dates Details Hypertension: Mother(V17.49) Status:Active Hypertension: Father(V17.49) Status:Active Cardiac Failure: Father Status:Active Acute Myocardial Infarction: Family History(V17.3) Comments:PT listed history f or Aunt or Uncle.; Status:Active Cancer: Family History Comments:PT listed history f or Sibling.; Status:Active Unknown Family Member Name Dates Details Hypertension: Mother(V17.49) Status:Active Hypertension: Father(V17.49) Status:Active Cardiac Failure: Father Status:Active Acute Myocardial Infarction: Family History(V17.3) Comments:PT listed history f or Aunt or Uncle.; Status:Active Cancer: Family History Comments:PT listed history f or Sibling.; Status:Active Unknown Family Member Name Dates Details Hypertension: Mother(V17.49) Status:Active Hypertension: Father(49) Status:Active Cardiac Failure: Father Status:Active Acute Myocardial Infarction: Family History(V17.3) Comments:PT listed history f or Aunt or Uncle.; Status:Active Cancer: Family History Comments:PT listed history f or Sibling.; Status:Active Unknown Family Member Name Dates Details Cancer: Family History Comments:PT listed history f or Sibling.; Status:Active Acute Myocardial Infarction: Family History(V17.3) Comments:PT listed history f or Aunt or Uncle.; Status:Active Cardiac Failure: Father Status:Active Hypertension: Father(.49) Status:Active Hypertension: Mother(49) Status:Active Unknown Family Member Name Dates Details Hypertension: Mother(7.49) Status:Active Hypertension: Father(49) Status:Active Cardiac Failure: Father Status:Active Acute Myocardial Infarction: Family History(V17.3) Comments:PT listed history f or Aunt or Uncle.; Status:Active Cancer: Family History Comments:PT listed history f or Sibling.; Status:Active Unknown Family Member Name Dates Details Hypertension: Mother(49) Status:Active Hypertension: Father() Status:Active Cardiac Failure: Father Status:Active Acute Myocardial Infarction: Family History(V17.3) Comments:PT listed history f or Aunt or Uncle.; Status:Active Cancer: Family History Comments:PT listed history f or Sibling.; Status:Active Unknown Family Member Name Dates Details Hypertension: Mother(7.49) Status:Active Hypertension: Father(49) Status:Active Cardiac Failure: Father Status:Active Acute Myocardial Infarction: Family History(V17.3) Comments:PT listed history f or Aunt or Uncle.; Status:Active Cancer: Family History Comments:PT listed history f or Sibling.; Status:Active Unknown Family Member Name Dates Details Hypertension: Mother(7.49) Status:Active Hypertension: Father(49) Status:Active Cardiac Failure: Father Status:Active Acute Myocardial Infarction: Family History(V17.3) Comments:PT listed history f or Aunt or Uncle.; Status:Active Cancer: Family History Comments:PT listed history f or Sibling.; Status:Active Unknown Family Member Name Dates Details Hypertension: Mother(7.49) Status:Active Hypertension: Father(V1.49) Status:Active Cardiac Failure: Father Status:Active Acute Myocardial Infarction: Family History(V17.3) Comments:PT listed history f or Aunt or Uncle.; Status:Active Cancer: Family History Comments:PT listed history f or Sibling.; Status:Active Unknown Family Member Name Dates Details Hypertension: Mother(V17.49) Status:Active Hypertension: Father(49) Status:Active Cardiac Failure: Father Status:Active Acute Myocardial Infarction: Family History(V17.3) Comments:PT listed history f or Aunt or Uncle.; Status:Active Cancer: Family History Comments:PT listed history f or Sibling.; Status:Active Unknown Family Member Name Dates Details Hypertension: Mother(V17.49) Status:Active Hypertension: Father(49) Status:Active Cardiac Failure: Father Status:Active Acute Myocardial Infarction: Family History(V17.3) Comments:PT listed history f or Aunt or Uncle.; Status:Active Cancer: Family History Comments:PT listed history f or Sibling.; Status:Active Unknown Family Member Name Dates Details Hypertension: Mother(749) Status:Active Hypertension: Father() Status:Active Cardiac Failure: Father Status:Active Acute Myocardial Infarction: Family History(V17.3) Comments:PT listed history f or Aunt or Uncle.; Status:Active Cancer: Family History Comments:PT listed history f or Sibling.; Status:Active Unknown Family Member Name Dates Details Hypertension: Mother(V17.49) Status:Active Hypertension: Father(49) Status:Active Cardiac Failure: Father Status:Active Acute Myocardial Infarction: Family History(V17.3) Comments:PT listed history f or Aunt or Uncle.; Status:Active Cancer: Family History Comments:PT listed history f or Sibling.; Status:Active Unknown Family Member Name Dates Details Hypertension: Mother(V17.49) Status:Active Hypertension: Father(49) Status:Active Cardiac Failure: Father Status:Active Acute Myocardial Infarction: Family History(V17.3) Comments:PT listed history f or Aunt or Uncle.; Status:Active Cancer: Family History Comments:PT listed history f or Sibling.; Status:Active Unknown Family Member Name Dates Details Hypertension: Mother(V17.49) Status:Active Hypertension: Father(V17.49) Status:Active Cardiac Failure: Father Status:Active Acute Myocardial Infarction: Family History(V17.3) Comments:PT listed history f or Aunt or Uncle.; Status:Active Cancer: Family History Comments:PT listed history f or Sibling.; Status:Active Unknown Family Member Name Dates Details Hypertension: Mother(V17.49) Status:Active Hypertension: Father(V17.49) Status:Active Cardiac Failure: Father Status:Active Acute Myocardial Infarction: Family History(V17.3) Comments:PT listed history f or Aunt or Uncle.; Status:Active Cancer: Family History Comments:PT listed history f or Sibling.; Status:Active Unknown Family Member Name Dates Details Hypertension: Mother(V17.49) Status:Active Hypertension: Father(V17.49) Status:Active Cardiac Failure: Father Status:Active Acute Myocardial Infarction: Family History(V17.3) Comments:PT listed history f or Aunt or Uncle.; Status:Active Cancer: Family History Comments:PT listed history f or Sibling.; Status:Active Unknown Family Member Name Dates Details Hypertension: Mother(V17.49) Status:Active Hypertension: Father(V17.49) Status:Active Cardiac Failure: Father Status:Active Acute Myocardial Infarction: Family History(V17.3) Comments:PT listed history f or Aunt or Uncle.; Status:Active Cancer: Family History Comments:PT listed history f or Sibling.; Status:Active Advance Directives No Advanced Directives Records Found Date Activated Date Inactivated Comments 08/17/2024 8:50 PM 08/24/2024 10:54 PM Question Answer Comments Full Code Order Discussed With: Patient Documents on File Type Date Recorded 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 Advance Directive(s) 02/03/2021 9:18 PM Advance Directive(s) 04/01/2017 10:26 AM Documents on File Type Date Recorded 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 Advance Directive(s) 02/03/2021 9:18 PM Advance Directive(s) 04/01/2017 10:26 AM Date Activated Date Inactivated Comments 08/17/2024 8:50 PM Date Activated Date Inactivated Comments 08/17/2024 8:50 PM 08/24/2024 10:54 PM Question Answer Comments Full Code Order Discussed With: Patient Assessments Diagnosis Sixth (abducent) nerve palsy, left eye Medications Administered Section Inactive Administered Medications - up to 3 most recent administrations Medication Order [facility] Action Action Date Dose Rate Site regadenoson 0.4 mg injection (LEXISCAN) 0.4 mg, INTRAVENOUS, ONCE, 1 dose, On Wed05/12/22 at 0930, Give 0.4 mg (5 mL) over ~10 seconds, followed immediately by a 5 mL saline flush. Wait 10-20 seconds, then administer the radionuclide myocardial perfusion imaging agent. Given 05/12/2022 7:50 AM EDT 0.4 mg Active Administered Medications - up to 3 most recent administrations Medication Order [facility] Action Dose Rate Site cyanocobalamin 1,000 mcg injection 1,000 mcg, INTRAMUSCULAR, EVERY 1 MONTH, 13 doses, First dose on Wed10/30/22 at 1530, Last dose on Wed10/25/23 at 1530 Given 12/01/2022 3:09 PM EDT 1,000 mcg Deltoid, Left Given 11/02/2022 1:55 PM EST 1,000 mcg De ltoid, Right Inactive Administered Medications - up to 3 most recent administrations Medication Order [facility] Dose Rate Site regadenoson 0.4 mg injection (LEXISCAN) 0.4 mg, INTRAVENOUS, ONCE, 1 dose, On Wed01/05/23 at 0930, Give 0.4 mg (5 mL) over ~10 seconds, followed immediately by a 5 mL saline flush. Wait 10-20 seconds, then administer the radionuclide myocardial perfusion imaging agent. Given 01/05/2023 8:30 AM EDT 0.4 mg Active Administered Medications - up to 3 most recent administrations Medication Order [facility] Dose Rate Site cyanocobalamin 1,000 mcg injection 1,000 mcg, INTRAMUSCULAR, EVERY 1 MONTH, 13 doses, First dose on Wed10/30/22 at 1530, Last dose on Wed10/25/23 at 1530 Given 01/12/2023 1:49 PM EDT 1,000 mcg Deltoid, Right Given 12/01/2022 3:09 PM EDT 1,000 mcg De ltoid, Left Given 11/02/2022 1:55 PM EST 1,000 mcg De ltoid, Right Inactive Administered Medications - up to 3 most recent administrations Medication Order [facility] Dose Rate Site cyanocobalamin 1,000 mcg injection 1,000 mcg, INTRAMUSCULAR, ONCE, 1 dose, On Wed02/05/23 at 0900 Given 02/05/2023 9:00 AM EDT 1,000 mcg Deltoid, Right Active Administered Medications - up to 3 most recent administrations Medication Order [facility] Action Action Date Dose Rate Site cyanocobalamin 1,000 mcg injection 1,000 mcg, INTRAMUSCULAR, EVERY 1 MONTH, 13 doses, First dose on Wed10/30/22 at 1530, Last dose on Wed10/25/23 at 1530 Given 03/12/2023 1:15 PM EDT 1,000 mcg Deltoid, Left Given 01/12/2023 1:49 PM EDT 1,000 mcg De ltoid, Right Given 12/01/2022 3:09 PM EDT 1,000 mcg De ltoid, Left Active Administered Medications - up to 3 most recent administrations Medication Order [facility] Action Action Date Dose Rate Site cyanocobalamin 1,000 mcg injection 1,000 mcg, INTRAMUSCULAR, EVERY 1 MONTH, 13 doses, First dose on Wed10/30/22 at 1530, Last dose on Wed10/25/23 at 1530 Given 05/04/2023 2:40 PM EDT 1,000 mcg Deltoid, Left Given 04/06/2023 3:03 PM EDT 1,000 mcg De ltoid, Left Given 03/12/2023 1:15 PM EDT 1,000 mcg De ltoid, Left Active Administered Medications - up to 3 most recent administrations Medication Order [facility] Action Action Date Dose Rate Site cyanocobalamin 1,000 mcg injection 1,000 mcg, INTRAMUSCULAR, EVERY 1 MONTH, 13 doses, First dose on Wed10/30/22 at 1530, Last dose on Wed10/25/23 at 1530 Given 06/29/2023 3:07 PM EDT 1,000 mcg Ar m, Left Given 06/01/2023 2:55 PM EDT 1,000 mcg De ltoid, Left Given 05/04/2023 2:40 PM EDT 1,000 mcg De ltoid, Left Active Administered Medications - up to 3 most recent administrations Medication Order [facility] Action Action Date Dose Rate Site cyanocobalamin 1,000 mcg injection 1,000 mcg, INTRAMUSCULAR, EVERY 1 MONTH, 13 doses, First dose on Wed10/30/22 at 1530, Last dose on Wed10/25/23 at 1530 Given 07/27/2023 2:39 PM EST 1,000 mcg Deltoid, Left Given 06/29/2023 3:07 PM EDT 1,000 mcg Ar m, Left Given 06/01/2023 2:55 PM EDT 1,000 mcg De ltoid, Left Reason for Referral Specialty Diagnoses / Procedures Referred By Contac t Referred To Contact Diagnoses NELLY (obstructive sleep apnea) Procedures CONSULT TO SLEEP MEDICINE - ADULT OFFICE/OUTPATIENT [facility] 60-74 MINUTES Shanel Newell, FINANCIAL REPORTING ANALYST.[facility] [address] [place] [address] [facility] [address] [place] [address] Referral ID Status Reason Start Date Expiration Date Visits Requested Visits Authorized [id number] Pending Review PCP Requested Referral 06/03/2022 06/03/2023 1 1 Specialty Diagnoses / Procedures Referred By Contac t Referred To Contact Diagnoses Postmenopausal bleeding Procedures CONSULT TO PATIENT ACCESS SPECIALIST OFFICE/OUTPATIENT [facility] 60-74 MINUTES Tati Aguilera PA-C [address] [place] [address] Referral ID Status Reason Start Date Expiration Date Visits Requested Visits Authorized [id number] Pending Review PCP Requested Referral Auto-Generate d Referral 02/08/2023 02/08/2024 1 1 Specialty Diagnoses / Procedures Referred By Contac t Referred To Contact Gynecology / UROGYNECOLOGY [facility] Diagnoses Mixed stress and urge urinary incontinence Procedures CONSULT TO GYNECOLOGY OFFICE/OUTPATIENT [facility] 60-74 MINUTES Hamlet Garay MD [address] [address] Referral ID Status Reason Start Date Expiration Date Visits Requested Visits Authorized [id number] Pending Review PCP Requested Referral Auto-Generate d Referral 08/09/2023 08/08/2024 1 1 Specialty Diagnoses / Procedures Referred By Contac t Referred To Contact [facility] Diagnoses OAB (overactive bladder) Procedures CONSULT TO PHYSICAL THERAPY PHYSICAL THERAPY EVALUATION [facility] 45 MINS Hamlet Garay MD [address] [place] [address] [facility] [place] [address] Referral ID Status Reason Start Date Expiration Date Visits Requested Visits Authorized [id number] Pending Review Auto-Generat ed Referral 04/26/2024 04/26/2025 1 1 Chief Complaint and Reason for Visit Chief Complaint Admit Date LABWORK August 25, 2024 5:00am LABWORK September 01, 2024 5:00am LAB WORK September 04, 2024 4:20am LAB WORK September 07, 2024 5: 00am PRISON LAB WORK October 26 5:00am LABWORK October 30, 2024 2:00am PRISON LAB WORK November 03 5:00am PRISON LAB WORK November 06, 2024 5: 00am Chief Complaint Admit Date PRISON LAB WORK October 26 5:00am LABWORK October 30, 2024 2:00am PRISON LAB WORK November 03 5:00am PRISON LAB WORK November 06, 2024 5: 00am PRISON LAB WORK December 25, 2024 5 :00am Chief Complaint Admit Date PRISON LAB WORK October 26 5:00am LABWORK October 30, 2024 2:00am PRISON LAB WORK November 03 5:00am PRISON LAB WORK November 06, 2024 5: 00am PRISON LAB WORK December 25, 2024 5 :00am PRISON LAB WORK December 27, 2024 5 :00am PRISON LAB WORK January 01, 2025 5 :00am LABWORK January 09, 2025 5:00am LABWORK January 15, 2025 5:00a m Additional Source Comments INFORMATION SOURCE (unrecogn ized section and content) DATE CREATED AUTHOR 06/29/2018 [facility] DATE CREATED AUTHOR AUTHOR'S ORGANIZ ATION 12/11/2018 [facility] DATE CREATED AUTHOR AUTHOR'S ORGANIZ ATION 08/16/2020 [facility] DATE CREATED AUTHOR AUTHOR'S ORGANIZ ATION 05/02/2022 [employer] DATE CREATED AUTHOR AUTHOR'S ORGANIZ ATION 06/06/2022 [facility] DATE CREATED AUTHOR AUTHOR'S ORGANIZ ATION 10/14/2024 [facility] DATE CREATED AUTHOR AUTHOR'S ORGANIZ ATION 11/26/2024 [facility] DATE CREATED AUTHOR AUTHOR'S ORGANIZ ATION 02/06/2025 [facility] DATE CREATED AUTHOR AUTHOR'S ORGANIZ ATION 02/10/2025 [facility] DATE CREATED AUTHOR AUTHOR'S ORGANIZ ATION 02/12/2025 [facility] Source Comments (unrecognize d section and content) In the event this informatio n is protected by the Federal Confidentiality of Alcohol and Drug Abuse Patient Records regulations: The Federal rules restrict any use of the information to criminally investigate or prosecute any alcohol or drug abuse patient.[facility] the event this information is protected by the Federal Confidentiality of Alcohol and Drug Abuse Patient Records regulations: The Federal rules restrict any use of the information to criminally investigate or prosecute any alcohol or drug abuse patient.[facility] HospitalIn the event this information is protected by the Federal Confidentiality of Alcohol and Drug Abuse Patient Records regulations: The Federal rules restrict any use of the information to criminally investigate or prosecute any alcohol or drug abuse patient.[facility]In the event this information is protected by the Federal Confidentiality of Alcohol and Drug Abuse Patient Records regulations: The Federal rules restrict any use of the information to criminally investigate or prosecute any alcohol or drug abuse patient.[facility] HospitalIn the event this information is protected by the Federal Confidentiality of Alcohol and Drug Abuse Patient Records regulations: The Federal rules restrict any use of the information to criminally investigate or prosecute any alcohol or drug abuse patient.[facility] HospitalIn the event this information is protected by the Federal Confidentiality of Alcohol and Drug Abuse Patient Records regulations: The Federal rules restrict any use of the information to criminally investigate or prosecute any alcohol or drug abuse patient.[facility] HospitalIn the event this information is protected by the Federal Confidentiality of Alcohol and Drug Abuse Patient Records regulations: The Federal rules restrict any use of the information to criminally investigate or prosecute any alcohol or drug abuse patient.[facility] HospitalIn the event this information is protected by the Federal Confidentiality of Alcohol and Drug Abuse Patient Records regulations: The Federal rules restrict any use of the information to criminally investigate or prosecute any alcohol or drug abuse patient.[facility] HospitalIn the event this information is protected by the Federal Confidentiality of Alcohol and Drug Abuse Patient Records regulations: The Federal rules restrict any use of the information to criminally investigate or prosecute any alcohol or drug abuse patient.[facility] HospitalIn the event this information is protected by the Federal Confidentiality of Alcohol and Drug Abuse Patient Records regulations: The Federal rules restrict any use of the information to criminally investigate or prosecute any alcohol or drug abuse patient.[facility] HospitalIn the event this information is protected by the Federal Confidentiality of Alcohol and Drug Abuse Patient Records regulations: The Federal rules restrict any use of the information to criminally investigate or prosecute any alcohol or drug abuse patient.[facility] HospitalIn the event this information is protected by the Federal Confidentiality of Alcohol and Drug Abuse Patient Records regulations: The Federal rules restrict any use of the information to criminally investigate or prosecute any alcohol or drug abuse patient.[facility] HospitalIn the event this information is protected by the Federal Confidentiality of Alcohol and Drug Abuse Patient Records regulations: The Federal rules restrict any use of the information to criminally investigate or prosecute any alcohol or drug abuse patient.[facility] HospitalIn the event this information is protected by the Federal Confidentiality of Alcohol and Drug Abuse Patient Records regulations: The Federal rules restrict any use of the information to criminally investigate or prosecute any alcohol or drug abuse patient.[facility] HospitalIn the event this information is protected by the Federal Confidentiality of Alcohol and Drug Abuse Patient Records regulations: The Federal rules restrict any use of the information to criminally investigate or prosecute any alcohol or drug abuse patient.[facility] HospitalIn the event this information is protected by the Federal Confidentiality of Alcohol and Drug Abuse Patient Records regulations: The Federal rules restrict any use of the information to criminally investigate or prosecute any alcohol or drug abuse patient.[facility] HospitalIn the event this information is protected by the Federal Confidentiality of Alcohol and Drug Abuse Patient Records regulations: The Federal rules restrict any use of the information to criminally investigate or prosecute any alcohol or drug abuse patient.[facility] HospitalIn the event this information is protected by the Federal Confidentiality of Alcohol and Drug Abuse Patient Records regulations: The Federal rules restrict any use of the information to criminally investigate or prosecute any alcohol or drug abuse patient.[facility] HospitalIn the event this information is protected by the Federal Confidentiality of Alcohol and Drug Abuse Patient Records regulations: The Federal rules restrict any use of the information to criminally investigate or prosecute any alcohol or drug abuse patient.[facility] HospitalIn the event this information is protected by the Federal Confidentiality of Alcohol and Drug Abuse Patient Records regulations: The Federal rules restrict any use of the information to criminally investigate or prosecute any alcohol or drug abuse patient.[facility] HospitalIn the event this information is protected by the Federal Confidentiality of Alcohol and Drug Abuse Patient Records regulations: The Federal rules restrict any use of the information to criminally investigate or prosecute any alcohol or drug abuse patient.[facility] HospitalIn the event this information is protected by the Federal Confidentiality of Alcohol and Drug Abuse Patient Records regulations: The Federal rules restrict any use of the information to criminally investigate or prosecute any alcohol or drug abuse patient.[facility] HospitalIn the event this information is protected by the Federal Confidentiality of Alcohol and Drug Abuse Patient Records regulations: The Federal rules restrict any use of the information to criminally investigate or prosecute any alcohol or drug abuse patient.[facility] HospitalIn the event this information is protected by the Federal Confidentiality of Alcohol and Drug Abuse Patient Records regulations: The Federal rules restrict any use of the information to criminally investigate or prosecute any alcohol or drug abuse patient.[facility] HospitalIn the event this information is protected by the Federal Confidentiality of Alcohol and Drug Abuse Patient Records regulations: The Federal rules restrict any use of the information to criminally investigate or prosecute any alcohol or drug abuse patient.[facility] HospitalIn the event this information is protected by the Federal Confidentiality of Alcohol and Drug Abuse Patient Records regulations: The Federal rules restrict any use of the information to criminally investigate or prosecute any alcohol or drug abuse patient.[facility] HospitalIn the event this information is protected by the Federal Confidentiality of Alcohol and Drug Abuse Patient Records regulations: The Federal rules restrict any use of the information to criminally investigate or prosecute any alcohol or drug abuse patient.[facility] HospitalIn the event this information is protected by the Federal Confidentiality of Alcohol and Drug Abuse Patient Records regulations: The Federal rules restrict any use of the information to criminally investigate or prosecute any alcohol or drug abuse patient.[facility] HospitalIn the event this information is protected by the Federal Confidentiality of Alcohol and Drug Abuse Patient Records regulations: The Federal rules restrict any use of the information to criminally investigate or prosecute any alcohol or drug abuse patient.[facility] HospitalIn the event this information is protected by the Federal Confidentiality of Alcohol and Drug Abuse Patient Records regulations: The Federal rules restrict any use of the information to criminally investigate or prosecute any alcohol or drug abuse patient.[facility] HospitalIn the event this information is protected by the Federal Confidentiality of Alcohol and Drug Abuse Patient Records regulations: The Federal rules restrict any use of the information to criminally investigate or prosecute any alcohol or drug abuse patient.[facility] HospitalIn the event this information is protected by the Federal Confidentiality of Alcohol and Drug Abuse Patient Records regulations: The Federal rules restrict any use of the information to criminally investigate or prosecute any alcohol or drug abuse patient.[facility] HospitalIn the event this information is protected by the Federal Confidentiality of Alcohol and Drug Abuse Patient Records regulations: The Federal rules restrict any use of the information to criminally investigate or prosecute any alcohol or drug abuse patient.[facility] HospitalIn the event this information is protected by the Federal Confidentiality of Alcohol and Drug Abuse Patient Records regulations: The Federal rules restrict any use of the information to criminally investigate or prosecute any alcohol or drug abuse patient.[facility] HospitalIn the event this information is protected by the Federal Confidentiality of Alcohol and Drug Abuse Patient Records regulations: The Federal rules restrict any use of the information to criminally investigate or prosecute any alcohol or drug abuse patient.[facility] HospitalIn the event this information is protected by the Federal Confidentiality of Alcohol and Drug Abuse Patient Records regulations: The Federal rules restrict any use of the information to criminally investigate or prosecute any alcohol or drug abuse patient.[facility] HospitalIn the event this information is protected by the Federal Confidentiality of Alcohol and Drug Abuse Patient Records regulations: The Federal rules restrict any use of the information to criminally investigate or prosecute any alcohol or drug abuse patient.[facility] HospitalIn the event this information is protected by the Federal Confidentiality of Alcohol and Drug Abuse Patient Records regulations: The Federal rules restrict any use of the information to criminally investigate or prosecute any alcohol or drug abuse patient.[facility] HospitalIn the event this information is protected by the Federal Confidentiality of Alcohol and Drug Abuse Patient Records regulations: The Federal rules restrict any use of the information to criminally investigate or prosecute any alcohol or drug abuse patient.[facility] HospitalIn the event this information is protected by the Federal Confidentiality of Alcohol and Drug Abuse Patient Records regulations: The Federal rules restrict any use of the information to criminally investigate or prosecute any alcohol or drug abuse patient.[facility] HospitalIn the event this information is protected by the Federal Confidentiality of Alcohol and Drug Abuse Patient Records regulations: The Federal rules restrict any use of the information to criminally investigate or prosecute any alcohol or drug abuse patient.[facility] HospitalIn the event this information is protected by the Federal Confidentiality of Alcohol and Drug Abuse Patient Records regulations: The Federal rules restrict any use of the information to criminally investigate or prosecute any alcohol or drug abuse patient.[facility] HospitalIn the event this information is protected by the Federal Confidentiality of Alcohol and Drug Abuse Patient Records regulations: The Federal rules restrict any use of the information to criminally investigate or prosecute any alcohol or drug abuse patient.[facility] HospitalIn the event this information is protected by the Federal Confidentiality of Alcohol and Drug Abuse Patient Records regulations: The Federal rules restrict any use of the information to criminally investigate or prosecute any alcohol or drug abuse patient.[facility] HospitalIn the event this information is protected by the Federal Confidentiality of Alcohol and Drug Abuse Patient Records regulations: The Federal rules restrict any use of the information to criminally investigate or prosecute any alcohol or drug abuse patient.[facility] HospitalIn the event this information is protected by the Federal Confidentiality of Alcohol and Drug Abuse Patient Records regulations: The Federal rules restrict any use of the information to criminally investigate or prosecute any alcohol or drug abuse patient.[facility] HospitalIn the event this information is protected by the Federal Confidentiality of Alcohol and Drug Abuse Patient Records regulations: The Federal rules restrict any use of the information to criminally investigate or prosecute any alcohol or drug abuse patient.[facility] HospitalIn the event this information is protected by the Federal Confidentiality of Alcohol and Drug Abuse Patient Records regulations: The Federal rules restrict any use of the information to criminally investigate or prosecute any alcohol or drug abuse patient.[facility] HospitalIn the event this information is protected by the Federal Confidentiality of Alcohol and Drug Abuse Patient Records regulations: The Federal rules restrict any use of the information to criminally investigate or prosecute any alcohol or drug abuse patient.[facility] HospitalIn the event this information is protected by the Federal Confidentiality of Alcohol and Drug Abuse Patient Records regulations: The Federal rules restrict any use of the information to criminally investigate or prosecute any alcohol or drug abuse patient.[facility] HospitalIn the event this information is protected by the Federal Confidentiality of Alcohol and Drug Abuse Patient Records regulations: The Federal rules restrict any use of the information to criminally investigate or prosecute any alcohol or drug abuse patient.[facility] HospitalIn the event this information is protected by the Federal Confidentiality of Alcohol and Drug Abuse Patient Records regulations: The Federal rules restrict any use of the information to criminally investigate or prosecute any alcohol or drug abuse patient.[facility]In the event this information is protected by the Federal Confidentiality of Alcohol and Drug Abuse Patient Records regulations: The Federal rules restrict any use of the information to criminally investigate or prosecute any alcohol or drug abuse patient.[facility] HospitalIn the event this information is protected by the Federal Confidentiality of Alcohol and Drug Abuse Patient Records regulations: The Federal rules restrict any use of the information to criminally investigate or prosecute any alcohol or drug abuse patient.[facility] HospitalIn the event this information is protected by the Federal Confidentiality of Alcohol and Drug Abuse Patient Records regulations: The Federal rules restrict any use of the information to criminally investigate or prosecute any alcohol or drug abuse patient.[facility] HospitalIn the event this information is protected by the Federal Confidentiality of Alcohol and Drug Abuse Patient Records regulations: The Federal rules restrict any use of the information to criminally investigate or prosecute any alcohol or drug abuse patient.[facility] HospitalIn the event this information is protected by the Federal Confidentiality of Alcohol and Drug Abuse Patient Records regulations: The Federal rules restrict any use of the information to criminally investigate or prosecute any alcohol or drug abuse patient.[facility] HospitalIn the event this information is protected by the Federal Confidentiality of Alcohol and Drug Abuse Patient Records regulations: The Federal rules restrict any use of the information to criminally investigate or prosecute any alcohol or drug abuse patient.[facility] HospitalIn the event this information is protected by the Federal Confidentiality of Alcohol and Drug Abuse Patient Records regulations: The Federal rules restrict any use of the information to criminally investigate or prosecute any alcohol or drug abuse patient.[facility] HospitalIn the event this information is protected by the Federal Confidentiality of Alcohol and Drug Abuse Patient Records regulations: The Federal rules restrict any use of the information to criminally investigate or prosecute any alcohol or drug abuse patient.[facility] HospitalIn the event this information is protected by the Federal Confidentiality of Alcohol and Drug Abuse Patient Records regulations: The Federal rules restrict any use of the information to criminally investigate or prosecute any alcohol or drug abuse patient.[facility] HospitalIn the event this information is protected by the Federal Confidentiality of Alcohol and Drug Abuse Patient Records regulations: The Federal rules restrict any use of the information to criminally investigate or prosecute any alcohol or drug abuse patient.[facility] HospitalIn the event this information is protected by the Federal Confidentiality of Alcohol and Drug Abuse Patient Records regulations: The Federal rules restrict any use of the information to criminally investigate or prosecute any alcohol or drug abuse patient.[facility] HospitalIn the event this information is protected by the Federal Confidentiality of Alcohol and Drug Abuse Patient Records regulations: The Federal rules restrict any use of the information to criminally investigate or prosecute any alcohol or drug abuse patient.[facility] HospitalIn the event this information is protected by the Federal Confidentiality of Alcohol and Drug Abuse Patient Records regulations: The Federal rules restrict any use of the information to criminally investigate or prosecute any alcohol or drug abuse patient.[facility] HospitalIn the event this information is protected by the Federal Confidentiality of Alcohol and Drug Abuse Patient Records regulations: The Federal rules restrict any use of the information to criminally investigate or prosecute any alcohol or drug abuse patient.[facility] HospitalIn the event this information is protected by the Federal Confidentiality of Alcohol and Drug Abuse Patient Records regulations: The Federal rules restrict any use of the information to criminally investigate or prosecute any alcohol or drug abuse patient.[facility] HospitalIn the event this information is protected by the Federal Confidentiality of Alcohol and Drug Abuse Patient Records regulations: The Federal rules restrict any use of the information to criminally investigate or prosecute any alcohol or drug abuse patient.[facility] HospitalIn the event this information is protected by the Federal Confidentiality of Alcohol and Drug Abuse Patient Records regulations: The Federal rules restrict any use of the information to criminally investigate or prosecute any alcohol or drug abuse patient.[facility] HospitalIn the event this information is protected by the Federal Confidentiality of Alcohol and Drug Abuse Patient Records regulations: The Federal rules restrict any use of the information to criminally investigate or prosecute any alcohol or drug abuse patient.[facility] HospitalIn the event this information is protected by the Federal Confidentiality of Alcohol and Drug Abuse Patient Records regulations: The Federal rules restrict any use of the information to criminally investigate or prosecute any alcohol or drug abuse patient.[facility] HospitalIn the event this information is protected by the Federal Confidentiality of Alcohol and Drug Abuse Patient Records regulations: The Federal rules restrict any use of the information to criminally investigate or prosecute any alcohol or drug abuse patient.[facility] HospitalIn the event this information is protected by the Federal Confidentiality of Alcohol and Drug Abuse Patient Records regulations: The Federal rules restrict any use of the information to criminally investigate or prosecute any alcohol or drug abuse patient.[facility] HospitalIn the event this information is protected by the Federal Confidentiality of Alcohol and Drug Abuse Patient Records regulations: The Federal rules restrict any use of the information to criminally investigate or prosecute any alcohol or drug abuse patient.[facility] HospitalIn the event this information is protected by the Federal Confidentiality of Alcohol and Drug Abuse Patient Records regulations: The Federal rules restrict any use of the information to criminally investigate or prosecute any alcohol or drug abuse patient.[facility] HospitalIn the event this information is protected by the Federal Confidentiality of Alcohol and Drug Abuse Patient Records regulations: The Federal rules restrict any use of the information to criminally investigate or prosecute any alcohol or drug abuse patient.[facility] HospitalIn the event this information is protected by the Federal Confidentiality of Alcohol and Drug Abuse Patient Records regulations: The Federal rules restrict any use of the information to criminally investigate or prosecute any alcohol or drug abuse patient.[facility] HospitalIn the event this information is protected by the Federal Confidentiality of Alcohol and Drug Abuse Patient Records regulations: The Federal rules restrict any use of the information to criminally investigate or prosecute any alcohol or drug abuse patient.[facility] HospitalIn the event this information is protected by the Federal Confidentiality of Alcohol and Drug Abuse Patient Records regulations: The Federal rules restrict any use of the information to criminally investigate or prosecute any alcohol or drug abuse patient.[facility] HospitalIn the event this information is protected by the Federal Confidentiality of Alcohol and Drug Abuse Patient Records regulations: The Federal rules restrict any use of the information to criminally investigate or prosecute any alcohol or drug abuse patient.[facility] HospitalIn the event this information is protected by the Federal Confidentiality of Alcohol and Drug Abuse Patient Records regulations: The Federal rules restrict any use of the information to criminally investigate or prosecute any alcohol or drug abuse patient.[facility] HospitalIn the event this information is protected by the Federal Confidentiality of Alcohol and Drug Abuse Patient Records regulations: The Federal rules restrict any use of the information to criminally investigate or prosecute any alcohol or drug abuse patient.[facility] HospitalIn the event this information is protected by the Federal Confidentiality of Alcohol and Drug Abuse Patient Records regulations: The Federal rules restrict any use of the information to criminally investigate or prosecute any alcohol or drug abuse patient.[facility] HospitalIn the event this information is protected by the Federal Confidentiality of Alcohol and Drug Abuse Patient Records regulations: The Federal rules restrict any use of the information to criminally investigate or prosecute any alcohol or drug abuse patient.[facility] HospitalIn the event this information is protected by the Federal Confidentiality of Alcohol and Drug Abuse Patient Records regulations: The Federal rules restrict any use of the information to criminally investigate or prosecute any alcohol or drug abuse patient.[facility] HospitalIn the event this information is protected by the Federal Confidentiality of Alcohol and Drug Abuse Patient Records regulations: The Federal rules restrict any use of the information to criminally investigate or prosecute any alcohol or drug abuse patient.[facility] HospitalIn the event this information is protected by the Federal Confidentiality of Alcohol and Drug Abuse Patient Records regulations: The Federal rules restrict any use of the information to criminally investigate or prosecute any alcohol or drug abuse patient.[facility] HospitalIn the event this information is protected by the Federal Confidentiality of Alcohol and Drug Abuse Patient Records regulations: The Federal rules restrict any use of the information to criminally investigate or prosecute any alcohol or drug abuse patient.[facility] HospitalIn the event this information is protected by the Federal Confidentiality of Alcohol and Drug Abuse Patient Records regulations: The Federal rules restrict any use of the information to criminally investigate or prosecute any alcohol or drug abuse patient.[facility] HospitalIn the event this information is protected by the Federal Confidentiality of Alcohol and Drug Abuse Patient Records regulations: The Federal rules restrict any use of the information to criminally investigate or prosecute any alcohol or drug abuse patient.[facility] HospitalIn the event this information is protected by the Federal Confidentiality of Alcohol and Drug Abuse Patient Records regulations: The Federal rules restrict any use of the information to criminally investigate or prosecute any alcohol or drug abuse patient.[facility] HospitalIn the event this information is protected by the Federal Confidentiality of Alcohol and Drug Abuse Patient Records regulations: The Federal rules restrict any use of the information to criminally investigate or prosecute any alcohol or drug abuse patient.[facility] HospitalIn the event this information is protected by the Federal Confidentiality of Alcohol and Drug Abuse Patient Records regulations: The Federal rules restrict any use of the information to criminally investigate or prosecute any alcohol or drug abuse patient.[facility] HospitalIn the event this information is protected by the Federal Confidentiality of Alcohol and Drug Abuse Patient Records regulations: The Federal rules restrict any use of the information to criminally investigate or prosecute any alcohol or drug abuse patient.[facility] HospitalIn the event this information is protected by the Federal Confidentiality of Alcohol and Drug Abuse Patient Records regulations: The Federal rules restrict any use of the information to criminally investigate or prosecute any alcohol or drug abuse patient.[facility] HospitalIn the event this information is protected by the Federal Confidentiality of Alcohol and Drug Abuse Patient Records regulations: The Federal rules restrict any use of the information to criminally investigate or prosecute any alcohol or drug abuse patient.[facility] HospitalIn the event this information is protected by the Federal Confidentiality of Alcohol and Drug Abuse Patient Records regulations: The Federal rules restrict any use of the information to criminally investigate or prosecute any alcohol or drug abuse patient.[facility] HospitalIn the event this information is protected by the Federal Confidentiality of Alcohol and Drug Abuse Patient Records regulations: The Federal rules restrict any use of the information to criminally investigate or prosecute any alcohol or drug abuse patient.[facility] HospitalIn the event this information is protected by the Federal Confidentiality of Alcohol and Drug Abuse Patient Records regulations: The Federal rules restrict any use of the information to criminally investigate or prosecute any alcohol or drug abuse patient.[facility] HospitalIn the event this information is protected by the Federal Confidentiality of Alcohol and Drug Abuse Patient Records regulations: The Federal rules restrict any use of the information to criminally investigate or prosecute any alcohol or drug abuse patient.[facility] HospitalIn the event this information is protected by the Federal Confidentiality of Alcohol and Drug Abuse Patient Records regulations: The Federal rules restrict any use of the information to criminally investigate or prosecute any alcohol or drug abuse patient.[facility] HospitalIn the event this information is protected by the Federal Confidentiality of Alcohol and Drug Abuse Patient Records regulations: The Federal rules restrict any use of the information to criminally investigate or prosecute any alcohol or drug abuse patient.[facility] HospitalIn the event this information is protected by the Federal Confidentiality of Alcohol and Drug Abuse Patient Records regulations: The Federal rules restrict any use of the information to criminally investigate or prosecute any alcohol or drug abuse patient.[facility] HospitalIn the event this information is protected by the Federal Confidentiality of Alcohol and Drug Abuse Patient Records regulations: The Federal rules restrict any use of the information to criminally investigate or prosecute any alcohol or drug abuse patient.[facility] HospitalIn the event this information is protected by the Federal Confidentiality of Alcohol and Drug Abuse Patient Records regulations: The Federal rules restrict any use of the information to criminally investigate or prosecute any alcohol or drug abuse patient.[facility] HospitalIn the event this information is protected by the Federal Confidentiality of Alcohol and Drug Abuse Patient Records regulations: The Federal rules restrict any use of the information to criminally investigate or prosecute any alcohol or drug abuse patient.[facility] HospitalIn the event this information is protected by the Federal Confidentiality of Alcohol and Drug Abuse Patient Records regulations: The Federal rules restrict any use of the information to criminally investigate or prosecute any alcohol or drug abuse patient.[facility] HospitalIn the event this information is protected by the Federal Confidentiality of Alcohol and Drug Abuse Patient Records regulations: The Federal rules restrict any use of the information to criminally investigate or prosecute any alcohol or drug abuse patient.[facility] HospitalIn the event this information is protected by the Federal Confidentiality of Alcohol and Drug Abuse Patient Records regulations: The Federal rules restrict any use of the information to criminally investigate or prosecute any alcohol or drug abuse patient.[facility] HospitalIn the event this information is protected by the Federal Confidentiality of Alcohol and Drug Abuse Patient Records regulations: The Federal rules restrict any use of the information to criminally investigate or prosecute any alcohol or drug abuse patient.[facility] HospitalIn the event this information is protected by the Federal Confidentiality of Alcohol and Drug Abuse Patient Records regulations: The Federal rules restrict any use of the information to criminally investigate or prosecute any alcohol or drug abuse patient.[facility] HospitalIn the event this information is protected by the Federal Confidentiality of Alcohol and Drug Abuse Patient Records regulations: The Federal rules restrict any use of the information to criminally investigate or prosecute any alcohol or drug abuse patient.[facility] HospitalIn the event this information is protected by the Federal Confidentiality of Alcohol and Drug Abuse Patient Records regulations: The Federal rules restrict any use of the information to criminally investigate or prosecute any alcohol or drug abuse patient.[facility] HospitalIn the event this information is protected by the Federal Confidentiality of Alcohol and Drug Abuse Patient Records regulations: The Federal rules restrict any use of the information to criminally investigate or prosecute any alcohol or drug abuse patient.[facility] HospitalIn the event this information is protected by the Federal Confidentiality of Alcohol and Drug Abuse Patient Records regulations: The Federal rules restrict any use of the information to criminally investigate or prosecute any alcohol or drug abuse patient.[facility] HospitalIn the event this information is protected by the Federal Confidentiality of Alcohol and Drug Abuse Patient Records regulations: The Federal rules restrict any use of the information to criminally investigate or prosecute any alcohol or drug abuse patient.[facility] HospitalIn the event this information is protected by the Federal Confidentiality of Alcohol and Drug Abuse Patient Records regulations: The Federal rules restrict any use of the information to criminally investigate or prosecute any alcohol or drug abuse patient.[facility] HospitalIn the event this information is protected by the Federal Confidentiality of Alcohol and Drug Abuse Patient Records regulations: The Federal rules restrict any use of the information to criminally investigate or prosecute any alcohol or drug abuse patient.[facility] HospitalIn the event this information is protected by the Federal Confidentiality of Alcohol and Drug Abuse Patient Records regulations: The Federal rules restrict any use of the information to criminally investigate or prosecute any alcohol or drug abuse patient.[facility] HospitalIn the event this information is protected by the Federal Confidentiality of Alcohol and Drug Abuse Patient Records regulations: The Federal rules restrict any use of the information to criminally investigate or prosecute any alcohol or drug abuse patient.[facility] HospitalIn the event this information is protected by the Federal Confidentiality of Alcohol and Drug Abuse Patient Records regulations: The Federal rules restrict any use of the information to criminally investigate or prosecute any alcohol or drug abuse patient.[facility] HospitalIn the event this information is protected by the Federal Confidentiality of Alcohol and Drug Abuse Patient Records regulations: The Federal rules restrict any use of the information to criminally investigate or prosecute any alcohol or drug abuse patient.[facility] HospitalIn the event this information is protected by the Federal Confidentiality of Alcohol and Drug Abuse Patient Records regulations: The Federal rules restrict any use of the information to criminally investigate or prosecute any alcohol or drug abuse patient.[facility] HospitalIn the event this information is protected by the Federal Confidentiality of Alcohol and Drug Abuse Patient Records regulations: The Federal rules restrict any use of the information to criminally investigate or prosecute any alcohol or drug abuse patient.[facility] HospitalIn the event this information is protected by the Federal Confidentiality of Alcohol and Drug Abuse Patient Records regulations: The Federal rules restrict any use of the information to criminally investigate or prosecute any alcohol or drug abuse patient.[facility] HospitalIn the event this information is protected by the Federal Confidentiality of Alcohol and Drug Abuse Patient Records regulations: The Federal rules restrict any use of the information to criminally investigate or prosecute any alcohol or drug abuse patient.[facility] HospitalIn the event this information is protected by the Federal Confidentiality of Alcohol and Drug Abuse Patient Records regulations: The Federal rules restrict any use of the information to criminally investigate or prosecute any alcohol or drug abuse patient.[facility] HospitalIn the event this information is protected by the Federal Confidentiality of Alcohol and Drug Abuse Patient Records regulations: The Federal rules restrict any use of the information to criminally investigate or prosecute any alcohol or drug abuse patient.[facility] HospitalIn the event this information is protected by the Federal Confidentiality of Alcohol and Drug Abuse Patient Records regulations: The Federal rules restrict any use of the information to criminally investigate or prosecute any alcohol or drug abuse patient.[facility] HospitalIn the event this information is protected by the Federal Confidentiality of Alcohol and Drug Abuse Patient Records regulations: The Federal rules restrict any use of the information to criminally investigate or prosecute any alcohol or drug abuse patient.[facility] HospitalIn the event this information is protected by the Federal Confidentiality of Alcohol and Drug Abuse Patient Records regulations: The Federal rules restrict any use of the information to criminally investigate or prosecute any alcohol or drug abuse patient.[facility] HospitalIn the event this information is protected by the Federal Confidentiality of Alcohol and Drug Abuse Patient Records regulations: The Federal rules restrict any use of the information to criminally investigate or prosecute any alcohol or drug abuse patient.[facility] HospitalIn the event this information is protected by the Federal Confidentiality of Alcohol and Drug Abuse Patient Records regulations: The Federal rules restrict any use of the information to criminally investigate or prosecute any alcohol or drug abuse patient.[facility] HospitalIn the event this information is protected by the Federal Confidentiality of Alcohol and Drug Abuse Patient Records regulations: The Federal rules restrict any use of the information to criminally investigate or prosecute any alcohol or drug abuse patient.[facility] HospitalIn the event this information is protected by the Federal Confidentiality of Alcohol and Drug Abuse Patient Records regulations: The Federal rules restrict any use of the information to criminally investigate or prosecute any alcohol or drug abuse patient.[facility] HospitalIn the event this information is protected by the Federal Confidentiality of Alcohol and Drug Abuse Patient Records regulations: The Federal rules restrict any use of the information to criminally investigate or prosecute any alcohol or drug abuse patient.[facility] HospitalIn the event this information is protected by the Federal Confidentiality of Alcohol and Drug Abuse Patient Records regulations: The Federal rules restrict any use of the information to criminally investigate or prosecute any alcohol or drug abuse patient.[facility] HospitalIn the event this information is protected by the Federal Confidentiality of Alcohol and Drug Abuse Patient Records regulations: The Federal rules restrict any use of the information to criminally investigate or prosecute any alcohol or drug abuse patient.[facility] HospitalIn the event this information is protected by the Federal Confidentiality of Alcohol and Drug Abuse Patient Records regulations: The Federal rules restrict any use of the information to criminally investigate or prosecute any alcohol or drug abuse patient.[facility] HospitalIn the event this information is protected by the Federal Confidentiality of Alcohol and Drug Abuse Patient Records regulations: The Federal rules restrict any use of the information to criminally investigate or prosecute any alcohol or drug abuse patient.[facility]In the event this information is protected by the Federal Confidentiality of Alcohol and Drug Abuse Patient Records regulations: The Federal rules restrict any use of the information to criminally investigate or prosecute any alcohol or drug abuse patient.[facility] HospitalIn the event this information is protected by the Federal Confidentiality of Alcohol and Drug Abuse Patient Records regulations: The Federal rules restrict any use of the information to criminally investigate or prosecute any alcohol or drug abuse patient.[facility] HospitalIn the event this information is protected by the Federal Confidentiality of Alcohol and Drug Abuse Patient Records regulations: The Federal rules restrict any use of the information to criminally investigate or prosecute any alcohol or drug abuse patient.[facility] HospitalIn the event this information is protected by the Federal Confidentiality of Alcohol and Drug Abuse Patient Records regulations: The Federal rules restrict any use of the information to criminally investigate or prosecute any alcohol or drug abuse patient.[facility] HospitalIn the event this information is protected by the Federal Confidentiality of Alcohol and Drug Abuse Patient Records regulations: The Federal rules restrict any use of the information to criminally investigate or prosecute any alcohol or drug abuse patient.[facility] HospitalIn the event this information is protected by the Federal Confidentiality of Alcohol and Drug Abuse Patient Records regulations: The Federal rules restrict any use of the information to criminally investigate or prosecute any alcohol or drug abuse patient.[facility] HospitalIn the event this information is protected by the Federal Confidentiality of Alcohol and Drug Abuse Patient Records regulations: The Federal rules restrict any use of the information to criminally investigate or prosecute any alcohol or drug abuse patient.[facility] HospitalIn the event this information is protected by the Federal Confidentiality of Alcohol and Drug Abuse Patient Records regulations: The Federal rules restrict any use of the information to criminally investigate or prosecute any alcohol or drug abuse patient.[facility] HospitalIn the event this information is protected by the Federal Confidentiality of Alcohol and Drug Abuse Patient Records regulations: The Federal rules restrict any use of the information to criminally investigate or prosecute any alcohol or drug abuse patient.[facility] HospitalIn the event this information is protected by the Federal Confidentiality of Alcohol and Drug Abuse Patient Records regulations: The Federal rules restrict any use of the information to criminally investigate or prosecute any alcohol or drug abuse patient.[facility] HospitalIn the event this information is protected by the Federal Confidentiality of Alcohol and Drug Abuse Patient Records regulations: The Federal rules restrict any use of the information to criminally investigate or prosecute any alcohol or drug abuse patient.[facility] HospitalIn the event this information is protected by the Federal Confidentiality of Alcohol and Drug Abuse Patient Records regulations: The Federal rules restrict any use of the information to criminally investigate or prosecute any alcohol or drug abuse patient.[facility] HospitalIn the event this information is protected by the Federal Confidentiality of Alcohol and Drug Abuse Patient Records regulations: The Federal rules restrict any use of the information to criminally investigate or prosecute any alcohol or drug abuse patient.[facility] HospitalIn the event this information is protected by the Federal Confidentiality of Alcohol and Drug Abuse Patient Records regulations: The Federal rules restrict any use of the information to criminally investigate or prosecute any alcohol or drug abuse patient.[facility] HospitalIn the event this information is protected by the Federal Confidentiality of Alcohol and Drug Abuse Patient Records regulations: The Federal rules restrict any use of the information to criminally investigate or prosecute any alcohol or drug abuse patient.[facility] HospitalIn the event this information is protected by the Federal Confidentiality of Alcohol and Drug Abuse Patient Records regulations: The Federal rules restrict any use of the information to criminally investigate or prosecute any alcohol or drug abuse patient.[facility] HospitalIn the event this information is protected by the Federal Confidentiality of Alcohol and Drug Abuse Patient Records regulations: The Federal rules restrict any use of the information to criminally investigate or prosecute any alcohol or drug abuse patient.[facility] HospitalIn the event this information is protected by the Federal Confidentiality of Alcohol and Drug Abuse Patient Records regulations: The Federal rules restrict any use of the information to criminally investigate or prosecute any alcohol or drug abuse patient.[facility] HospitalIn the event this information is protected by the Federal Confidentiality of Alcohol and Drug Abuse Patient Records regulations: The Federal rules restrict any use of the information to criminally investigate or prosecute any alcohol or drug abuse patient.[facility] HospitalIn the event this information is protected by the Federal Confidentiality of Alcohol and Drug Abuse Patient Records regulations: The Federal rules restrict any use of the information to criminally investigate or prosecute any alcohol or drug abuse patient.[facility] HospitalIn the event this information is protected by the Federal Confidentiality of Alcohol and Drug Abuse Patient Records regulations: The Federal rules restrict any use of the information to criminally investigate or prosecute any alcohol or drug abuse patient.[facility] HospitalIn the event this information is protected by the Federal Confidentiality of Alcohol and Drug Abuse Patient Records regulations: The Federal rules restrict any use of the information to criminally investigate or prosecute any alcohol or drug abuse patient.[facility] HospitalIn the event this information is protected by the Federal Confidentiality of Alcohol and Drug Abuse Patient Records regulations: The Federal rules restrict any use of the information to criminally investigate or prosecute any alcohol or drug abuse patient.[facility] HospitalIn the event this information is protected by the Federal Confidentiality of Alcohol and Drug Abuse Patient Records regulations: The Federal rules restrict any use of the information to criminally investigate or prosecute any alcohol or drug abuse patient.[facility] HospitalIn the event this information is protected by the Federal Confidentiality of Alcohol and Drug Abuse Patient Records regulations: The Federal rules restrict any use of the information to criminally investigate or prosecute any alcohol or drug abuse patient.[facility] HospitalIn the event this information is protected by the Federal Confidentiality of Alcohol and Drug Abuse Patient Records regulations: The Federal rules restrict any use of the information to criminally investigate or prosecute any alcohol or drug abuse patient.[facility] HospitalIn the event this information is protected by the Federal Confidentiality of Alcohol and Drug Abuse Patient Records regulations: The Federal rules restrict any use of the information to criminally investigate or prosecute any alcohol or drug abuse patient.[facility] HospitalIn the event this information is protected by the Federal Confidentiality of Alcohol and Drug Abuse Patient Records regulations: The Federal rules restrict any use of the information to criminally investigate or prosecute any alcohol or drug abuse patient.[facility] HospitalIn the event this information is protected by the Federal Confidentiality of Alcohol and Drug Abuse Patient Records regulations: The Federal rules restrict any use of the information to criminally investigate or prosecute any alcohol or drug abuse patient.[facility] HospitalIn the event this information is protected by the Federal Confidentiality of Alcohol and Drug Abuse Patient Records regulations: The Federal rules restrict any use of the information to criminally investigate or prosecute any alcohol or drug abuse patient.[facility] HospitalIn the event this information is protected by the Federal Confidentiality of Alcohol and Drug Abuse Patient Records regulations: The Federal rules restrict any use of the information to criminally investigate or prosecute any alcohol or drug abuse patient.[facility] HospitalIn the event this information is protected by the Federal Confidentiality of Alcohol and Drug Abuse Patient Records regulations: The Federal rules restrict any use of the information to criminally investigate or prosecute any alcohol or drug abuse patient.[facility] HospitalIn the event this information is protected by the Federal Confidentiality of Alcohol and Drug Abuse Patient Records regulations: The Federal rules restrict any use of the information to criminally investigate or prosecute any alcohol or drug abuse patient.[facility] HospitalIn the event this information is protected by the Federal Confidentiality of Alcohol and Drug Abuse Patient Records regulations: The Federal rules restrict any use of the information to criminally investigate or prosecute any alcohol or drug abuse patient.[facility] HospitalIn the event this information is protected by the Federal Confidentiality of Alcohol and Drug Abuse Patient Records regulations: The Federal rules restrict any use of the information to criminally investigate or prosecute any alcohol or drug abuse patient.[facility] HospitalIn the event this information is protected by the Federal Confidentiality of Alcohol and Drug Abuse Patient Records regulations: The Federal rules restrict any use of the information to criminally investigate or prosecute any alcohol or drug abuse patient.[facility] HospitalIn the event this information is protected by the Federal Confidentiality of Alcohol and Drug Abuse Patient Records regulations: The Federal rules restrict any use of the information to criminally investigate or prosecute any alcohol or drug abuse patient.[facility] HospitalIn the event this information is protected by the Federal Confidentiality of Alcohol and Drug Abuse Patient Records regulations: The Federal rules restrict any use of the information to criminally investigate or prosecute any alcohol or drug abuse patient.[facility] HospitalIn the event this information is protected by the Federal Confidentiality of Alcohol and Drug Abuse Patient Records regulations: The Federal rules restrict any use of the information to criminally investigate or prosecute any alcohol or drug abuse patient.[facility] HospitalIn the event this information is protected by the Federal Confidentiality of Alcohol and Drug Abuse Patient Records regulations: The Federal rules restrict any use of the information to criminally investigate or prosecute any alcohol or drug abuse patient.[facility] HospitalIn the event this information is protected by the Federal Confidentiality of Alcohol and Drug Abuse Patient Records regulations: The Federal rules restrict any use of the information to criminally investigate or prosecute any alcohol or drug abuse patient.[facility] HospitalIn the event this information is protected by the Federal Confidentiality of Alcohol and Drug Abuse Patient Records regulations: The Federal rules restrict any use of the information to criminally investigate or prosecute any alcohol or drug abuse patient.[facility] HospitalIn the event this information is protected by the Federal Confidentiality of Alcohol and Drug Abuse Patient Records regulations: The Federal rules restrict any use of the information to criminally investigate or prosecute any alcohol or drug abuse patient.[facility] HospitalIn the event this information is protected by the Federal Confidentiality of Alcohol and Drug Abuse Patient Records regulations: The Federal rules restrict any use of the information to criminally investigate or prosecute any alcohol or drug abuse patient.[facility] HospitalIn the event this information is protected by the Federal Confidentiality of Alcohol and Drug Abuse Patient Records regulations: The Federal rules restrict any use of the information to criminally investigate or prosecute any alcohol or drug abuse patient.[facility] HospitalIn the event this information is protected by the Federal Confidentiality of Alcohol and Drug Abuse Patient Records regulations: The Federal rules restrict any use of the information to criminally investigate or prosecute any alcohol or drug abuse patient.[facility] HospitalIn the event this information is protected by the Federal Confidentiality of Alcohol and Drug Abuse Patient Records regulations: The Federal rules restrict any use of the information to criminally investigate or prosecute any alcohol or drug abuse patient.[facility] HospitalIn the event this information is protected by the Federal Confidentiality of Alcohol and Drug Abuse Patient Records regulations: The Federal rules restrict any use of the information to criminally investigate or prosecute any alcohol or drug abuse patient.[facility] HospitalIn the event this information is protected by the Federal Confidentiality of Alcohol and Drug Abuse Patient Records regulations: The Federal rules restrict any use of the information to criminally investigate or prosecute any alcohol or drug abuse patient.[facility] HospitalIn the event this information is protected by the Federal Confidentiality of Alcohol and Drug Abuse Patient Records regulations: The Federal rules restrict any use of the information to criminally investigate or prosecute any alcohol or drug abuse patient.[facility] HospitalIn the event this information is protected by the Federal Confidentiality of Alcohol and Drug Abuse Patient Records regulations: The Federal rules restrict any use of the information to criminally investigate or prosecute any alcohol or drug abuse patient.[facility] HospitalIn the event this information is protected by the Federal Confidentiality of Alcohol and Drug Abuse Patient Records regulations: The Federal rules restrict any use of the information to criminally investigate or prosecute any alcohol or drug abuse patient.[facility] HospitalIn the event this information is protected by the Federal Confidentiality of Alcohol and Drug Abuse Patient Records regulations: The Federal rules restrict any use of the information to criminally investigate or prosecute any alcohol or drug abuse patient.[facility] HospitalIn the event this information is protected by the Federal Confidentiality of Alcohol and Drug Abuse Patient Records regulations: The Federal rules restrict any use of the information to criminally investigate or prosecute any alcohol or drug abuse patient.[facility] HospitalIn the event this information is protected by the Federal Confidentiality of Alcohol and Drug Abuse Patient Records regulations: The Federal rules restrict any use of the information to criminally investigate or prosecute any alcohol or drug abuse patient.[facility] HospitalIn the event this information is protected by the Federal Confidentiality of Alcohol and Drug Abuse Patient Records regulations: The Federal rules restrict any use of the information to criminally investigate or prosecute any alcohol or drug abuse patient.[facility] HospitalIn the event this information is protected by the Federal Confidentiality of Alcohol and Drug Abuse Patient Records regulations: The Federal rules restrict any use of the information to criminally investigate or prosecute any alcohol or drug abuse patient.[facility] HospitalIn the event this information is protected by the Federal Confidentiality of Alcohol and Drug Abuse Patient Records regulations: The Federal rules restrict any use of the information to criminally investigate or prosecute any alcohol or drug abuse patient.[facility] HospitalIn the event this information is protected by the Federal Confidentiality of Alcohol and Drug Abuse Patient Records regulations: The Federal rules restrict any use of the information to criminally investigate or prosecute any alcohol or drug abuse patient.[facility] HospitalIn the event this information is protected by the Federal Confidentiality of Alcohol and Drug Abuse Patient Records regulations: The Federal rules restrict any use of the information to criminally investigate or prosecute any alcohol or drug abuse patient.[facility] HospitalIn the event this information is protected by the Federal Confidentiality of Alcohol and Drug Abuse Patient Records regulations: The Federal rules restrict any use of the information to criminally investigate or prosecute any alcohol or drug abuse patient.[facility] HospitalIn the event this information is protected by the Federal Confidentiality of Alcohol and Drug Abuse Patient Records regulations: The Federal rules restrict any use of the information to criminally investigate or prosecute any alcohol or drug abuse patient.[facility] HospitalIn the event this information is protected by the Federal Confidentiality of Alcohol and Drug Abuse Patient Records regulations: The Federal rules restrict any use of the information to criminally investigate or prosecute any alcohol or drug abuse patient.[facility] HospitalIn the event this information is protected by the Federal Confidentiality of Alcohol and Drug Abuse Patient Records regulations: The Federal rules restrict any use of the information to criminally investigate or prosecute any alcohol or drug abuse patient.[facility] HospitalIn the event this information is protected by the Federal Confidentiality of Alcohol and Drug Abuse Patient Records regulations: The Federal rules restrict any use of the information to criminally investigate or prosecute any alcohol or drug abuse patient.[facility] HospitalIn the event this information is protected by the Federal Confidentiality of Alcohol and Drug Abuse Patient Records regulations: The Federal rules restrict any use of the information to criminally investigate or prosecute any alcohol or drug abuse patient.[facility] HospitalIn the event this information is protected by the Federal Confidentiality of Alcohol and Drug Abuse Patient Records regulations: The Federal rules restrict any use of the information to criminally investigate or prosecute any alcohol or drug abuse patient.[facility] HospitalIn the event this information is protected by the Federal Confidentiality of Alcohol and Drug Abuse Patient Records regulations: The Federal rules restrict any use of the information to criminally investigate or prosecute any alcohol or drug abuse patient.[facility] HospitalIn the event this information is protected by the Federal Confidentiality of Alcohol and Drug Abuse Patient Records regulations: The Federal rules restrict any use of the information to criminally investigate or prosecute any alcohol or drug abuse patient.[facility] HospitalIn the event this information is protected by the Federal Confidentiality of Alcohol and Drug Abuse Patient Records regulations: The Federal rules restrict any use of the information to criminally investigate or prosecute any alcohol or drug abuse patient.[facility] HospitalIn the event this information is protected by the Federal Confidentiality of Alcohol and Drug Abuse Patient Records regulations: The Federal rules restrict any use of the information to criminally investigate or prosecute any alcohol or drug abuse patient.[facility] HospitalIn the event this information is protected by the Federal Confidentiality of Alcohol and Drug Abuse Patient Records regulations: The Federal rules restrict any use of the information to criminally investigate or prosecute any alcohol or drug abuse patient.[facility] HospitalIn the event this information is protected by the Federal Confidentiality of Alcohol and Drug Abuse Patient Records regulations: The Federal rules restrict any use of the information to criminally investigate or prosecute any alcohol or drug abuse patient.[facility] HospitalIn the event this information is protected by the Federal Confidentiality of Alcohol and Drug Abuse Patient Records regulations: The Federal rules restrict any use of the information to criminally investigate or prosecute any alcohol or drug abuse patient.[facility] HospitalIn the event this information is protected by the Federal Confidentiality of Alcohol and Drug Abuse Patient Records regulations: The Federal rules restrict any use of the information to criminally investigate or prosecute any alcohol or drug abuse patient.[facility] HospitalIn the event this information is protected by the Federal Confidentiality of Alcohol and Drug Abuse Patient Records regulations: The Federal rules restrict any use of the information to criminally investigate or prosecute any alcohol or drug abuse patient.[facility] HospitalIn the event this information is protected by the Federal Confidentiality of Alcohol and Drug Abuse Patient Records regulations: The Federal rules restrict any use of the information to criminally investigate or prosecute any alcohol or drug abuse patient.[facility] HospitalIn the event this information is protected by the Federal Confidentiality of Alcohol and Drug Abuse Patient Records regulations: The Federal rules restrict any use of the information to criminally investigate or prosecute any alcohol or drug abuse patient.[facility] HospitalIn the event this information is protected by the Federal Confidentiality of Alcohol and Drug Abuse Patient Records regulations: The Federal rules restrict any use of the information to criminally investigate or prosecute any alcohol or drug abuse patient.[facility] HospitalIn the event this information is protected by the Federal Confidentiality of Alcohol and Drug Abuse Patient Records regulations: The Federal rules restrict any use of the information to criminally investigate or prosecute any alcohol or drug abuse patient.[facility] HospitalIn the event this information is protected by the Federal Confidentiality of Alcohol and Drug Abuse Patient Records regulations: The Federal rules restrict any use of the information to criminally investigate or prosecute any alcohol or drug abuse patient.[facility] HospitalIn the event this information is protected by the Federal Confidentiality of Alcohol and Drug Abuse Patient Records regulations: The Federal rules restrict any use of the information to criminally investigate or prosecute any alcohol or drug abuse patient.[facility] HospitalIn the event this information is protected by the Federal Confidentiality of Alcohol and Drug Abuse Patient Records regulations: The Federal rules restrict any use of the information to criminally investigate or prosecute any alcohol or drug abuse patient.[facility] HospitalIn the event this information is protected by the Federal Confidentiality of Alcohol and Drug Abuse Patient Records regulations: The Federal rules restrict any use of the information to criminally investigate or prosecute any alcohol or drug abuse patient.[facility] HospitalIn the event this information is protected by the Federal Confidentiality of Alcohol and Drug Abuse Patient Records regulations: The Federal rules restrict any use of the information to criminally investigate or prosecute any alcohol or drug abuse patient.[facility] HospitalIn the event this information is protected by the Federal Confidentiality of Alcohol and Drug Abuse Patient Records regulations: The Federal rules restrict any use of the information to criminally investigate or prosecute any alcohol or drug abuse patient.[facility] HospitalIn the event this information is protected by the Federal Confidentiality of Alcohol and Drug Abuse Patient Records regulations: The Federal rules restrict any use of the information to criminally investigate or prosecute any alcohol or drug abuse patient.[facility] HospitalIn the event this information is protected by the Federal Confidentiality of Alcohol and Drug Abuse Patient Records regulations: The Federal rules restrict any use of the information to criminally investigate or prosecute any alcohol or drug abuse patient.[facility]In the event this information is protected by the Federal Confidentiality of Alcohol and Drug Abuse Patient Records regulations: The Federal rules restrict any use of the information to criminally investigate or prosecute any alcohol or drug abuse patient.[facility] HospitalIn the event this information is protected by the Federal Confidentiality of Alcohol and Drug Abuse Patient Records regulations: The Federal rules restrict any use of the information to criminally investigate or prosecute any alcohol or drug abuse patient.[facility] HospitalIn the event this information is protected by the Federal Confidentiality of Alcohol and Drug Abuse Patient Records regulations: The Federal rules restrict any use of the information to criminally investigate or prosecute any alcohol or drug abuse patient.[facility] HospitalIn the event this information is protected by the Federal Confidentiality of Alcohol and Drug Abuse Patient Records regulations: The Federal rules restrict any use of the information to criminally investigate or prosecute any alcohol or drug abuse patient.[facility] HospitalIn the event this information is protected by the Federal Confidentiality of Alcohol and Drug Abuse Patient Records regulations: The Federal rules restrict any use of the information to criminally investigate or prosecute any alcohol or drug abuse patient.[facility] HospitalIn the event this information is protected by the Federal Confidentiality of Alcohol and Drug Abuse Patient Records regulations: The Federal rules restrict any use of the information to criminally investigate or prosecute any alcohol or drug abuse patient.[facility] HospitalIn the event this information is protected by the Federal Confidentiality of Alcohol and Drug Abuse Patient Records regulations: The Federal rules restrict any use of the information to criminally investigate or prosecute any alcohol or drug abuse patient.[facility] HospitalIn the event this information is protected by the Federal Confidentiality of Alcohol and Drug Abuse Patient Records regulations: The Federal rules restrict any use of the information to criminally investigate or prosecute any alcohol or drug abuse patient.[facility] HospitalIn the event this information is protected by the Federal Confidentiality of Alcohol and Drug Abuse Patient Records regulations: The Federal rules restrict any use of the information to criminally investigate or prosecute any alcohol or drug abuse patient.[facility] HospitalIn the event this information is protected by the Federal Confidentiality of Alcohol and Drug Abuse Patient Records regulations: The Federal rules restrict any use of the information to criminally investigate or prosecute any alcohol or drug abuse patient.[facility] HospitalIn the event this information is protected by the Federal Confidentiality of Alcohol and Drug Abuse Patient Records regulations: The Federal rules restrict any use of the information to criminally investigate or prosecute any alcohol or drug abuse patient.[facility] HospitalIn the event this information is protected by the Federal Confidentiality of Alcohol and Drug Abuse Patient Records regulations: The Federal rules restrict any use of the information to criminally investigate or prosecute any alcohol or drug abuse patient.[facility] HospitalIn the event this information is protected by the Federal Confidentiality of Alcohol and Drug Abuse Patient Records regulations: The Federal rules restrict any use of the information to criminally investigate or prosecute any alcohol or drug abuse patient.[facility] HospitalIn the event this information is protected by the Federal Confidentiality of Alcohol and Drug Abuse Patient Records regulations: The Federal rules restrict any use of the information to criminally investigate or prosecute any alcohol or drug abuse patient.[facility] HospitalIn the event this information is protected by the Federal Confidentiality of Alcohol and Drug Abuse Patient Records regulations: The Federal rules restrict any use of the information to criminally investigate or prosecute any alcohol or drug abuse patient.[facility] HospitalIn the event this information is protected by the Federal Confidentiality of Alcohol and Drug Abuse Patient Records regulations: The Federal rules restrict any use of the information to criminally investigate or prosecute any alcohol or drug abuse patient.[facility] HospitalIn the event this information is protected by the Federal Confidentiality of Alcohol and Drug Abuse Patient Records regulations: The Federal rules restrict any use of the information to criminally investigate or prosecute any alcohol or drug abuse patient.[facility] HospitalIn the event this information is protected by the Federal Confidentiality of Alcohol and Drug Abuse Patient Records regulations: The Federal rules restrict any use of the information to criminally investigate or prosecute any alcohol or drug abuse patient.[facility] HospitalIn the event this information is protected by the Federal Confidentiality of Alcohol and Drug Abuse Patient Records regulations: The Federal rules restrict any use of the information to criminally investigate or prosecute any alcohol or drug abuse patient.[facility] HospitalIn the event this information is protected by the Federal Confidentiality of Alcohol and Drug Abuse Patient Records regulations: The Federal rules restrict any use of the information to criminally investigate or prosecute any alcohol or drug abuse patient.[facility] HospitalIn the event this information is protected by the Federal Confidentiality of Alcohol and Drug Abuse Patient Records regulations: The Federal rules restrict any use of the information to criminally investigate or prosecute any alcohol or drug abuse patient.[facility] HospitalIn the event this information is protected by the Federal Confidentiality of Alcohol and Drug Abuse Patient Records regulations: The Federal rules restrict any use of the information to criminally investigate or prosecute any alcohol or drug abuse patient.[facility] HospitalIn the event this information is protected by the Federal Confidentiality of Alcohol and Drug Abuse Patient Records regulations: The Federal rules restrict any use of the information to criminally investigate or prosecute any alcohol or drug abuse patient.[facility] HospitalIn the event this information is protected by the Federal Confidentiality of Alcohol and Drug Abuse Patient Records regulations: The Federal rules restrict any use of the information to criminally investigate or prosecute any alcohol or drug abuse patient.[facility] HospitalIn the event this information is protected by the Federal Confidentiality of Alcohol and Drug Abuse Patient Records regulations: The Federal rules restrict any use of the information to criminally investigate or prosecute any alcohol or drug abuse patient.[facility] HospitalIn the event this information is protected by the Federal Confidentiality of Alcohol and Drug Abuse Patient Records regulations: The Federal rules restrict any use of the information to criminally investigate or prosecute any alcohol or drug abuse patient.[facility] HospitalIn the event this information is protected by the Federal Confidentiality of Alcohol and Drug Abuse Patient Records regulations: The Federal rules restrict any use of the information to criminally investigate or prosecute any alcohol or drug abuse patient.[facility] HospitalIn the event this information is protected by the Federal Confidentiality of Alcohol and Drug Abuse Patient Records regulations: The Federal rules restrict any use of the information to criminally investigate or prosecute any alcohol or drug abuse patient.[facility] HospitalIn the event this information is protected by the Federal Confidentiality of Alcohol and Drug Abuse Patient Records regulations: The Federal rules restrict any use of the information to criminally investigate or prosecute any alcohol or drug abuse patient.[facility] HospitalIn the event this information is protected by the Federal Confidentiality of Alcohol and Drug Abuse Patient Records regulations: The Federal rules restrict any use of the information to criminally investigate or prosecute any alcohol or drug abuse patient.[facility] HospitalIn the event this information is protected by the Federal Confidentiality of Alcohol and Drug Abuse Patient Records regulations: The Federal rules restrict any use of the information to criminally investigate or prosecute any alcohol or drug abuse patient.[facility] HospitalIn the event this information is protected by the Federal Confidentiality of Alcohol and Drug Abuse Patient Records regulations: The Federal rules restrict any use of the information to criminally investigate or prosecute any alcohol or drug abuse patient.[facility] HospitalIn the event this information is protected by the Federal Confidentiality of Alcohol and Drug Abuse Patient Records regulations: The Federal rules restrict any use of the information to criminally investigate or prosecute any alcohol or drug abuse patient.[facility] HospitalIn the event this information is protected by the Federal Confidentiality of Alcohol and Drug Abuse Patient Records regulations: The Federal rules restrict any use of the information to criminally investigate or prosecute any alcohol or drug abuse patient.[facility] HospitalIn the event this information is protected by the Federal Confidentiality of Alcohol and Drug Abuse Patient Records regulations: The Federal rules restrict any use of the information to criminally investigate or prosecute any alcohol or drug abuse patient.[facility] HospitalIn the event this information is protected by the Federal Confidentiality of Alcohol and Drug Abuse Patient Records regulations: The Federal rules restrict any use of the information to criminally investigate or prosecute any alcohol or drug abuse patient.[facility] HospitalIn the event this information is protected by the Federal Confidentiality of Alcohol and Drug Abuse Patient Records regulations: The Federal rules restrict any use of the information to criminally investigate or prosecute any alcohol or drug abuse patient.[facility] HospitalIn the event this information is protected by the Federal Confidentiality of Alcohol and Drug Abuse Patient Records regulations: The Federal rules restrict any use of the information to criminally investigate or prosecute any alcohol or drug abuse patient.[facility] HospitalIn the event this information is protected by the Federal Confidentiality of Alcohol and Drug Abuse Patient Records regulations: The Federal rules restrict any use of the information to criminally investigate or prosecute any alcohol or drug abuse patient.[facility] HospitalIn the event this information is protected by the Federal Confidentiality of Alcohol and Drug Abuse Patient Records regulations: The Federal rules restrict any use of the information to criminally investigate or prosecute any alcohol or drug abuse patient.[facility] HospitalIn the event this information is protected by the Federal Confidentiality of Alcohol and Drug Abuse Patient Records regulations: The Federal rules restrict any use of the information to criminally investigate or prosecute any alcohol or drug abuse patient.[facility] HospitalIn the event this information is protected by the Federal Confidentiality of Alcohol and Drug Abuse Patient Records regulations: The Federal rules restrict any use of the information to criminally investigate or prosecute any alcohol or drug abuse patient.[facility] HospitalIn the event this information is protected by the Federal Confidentiality of Alcohol and Drug Abuse Patient Records regulations: The Federal rules restrict any use of the information to criminally investigate or prosecute any alcohol or drug abuse patient.[facility] HospitalIn the event this information is protected by the Federal Confidentiality of Alcohol and Drug Abuse Patient Records regulations: The Federal rules restrict any use of the information to criminally investigate or prosecute any alcohol or drug abuse patient.[facility] HospitalIn the event this information is protected by the Federal Confidentiality of Alcohol and Drug Abuse Patient Records regulations: The Federal rules restrict any use of the information to criminally investigate or prosecute any alcohol or drug abuse patient.[facility] HospitalIn the event this information is protected by the Federal Confidentiality of Alcohol and Drug Abuse Patient Records regulations: The Federal rules restrict any use of the information to criminally investigate or prosecute any alcohol or drug abuse patient.[facility] HospitalIn the event this information is protected by the Federal Confidentiality of Alcohol and Drug Abuse Patient Records regulations: The Federal rules restrict any use of the information to criminally investigate or prosecute any alcohol or drug abuse patient.[facility] HospitalIn the event this information is protected by the Federal Confidentiality of Alcohol and Drug Abuse Patient Records regulations: The Federal rules restrict any use of the information to criminally investigate or prosecute any alcohol or drug abuse patient.[facility] HospitalIn the event this information is protected by the Federal Confidentiality of Alcohol and Drug Abuse Patient Records regulations: The Federal rules restrict any use of the information to criminally investigate or prosecute any alcohol or drug abuse patient.[facility] HospitalIn the event this information is protected by the Federal Confidentiality of Alcohol and Drug Abuse Patient Records regulations: The Federal rules restrict any use of the information to criminally investigate or prosecute any alcohol or drug abuse patient.[facility] HospitalIn the event this information is protected by the Federal Confidentiality of Alcohol and Drug Abuse Patient Records regulations: The Federal rules restrict any use of the information to criminally investigate or prosecute any alcohol or drug abuse patient.[facility] HospitalIn the event this information is protected by the Federal Confidentiality of Alcohol and Drug Abuse Patient Records regulations: The Federal rules restrict any use of the information to criminally investigate or prosecute any alcohol or drug abuse patient.[facility] HospitalIn the event this information is protected by the Federal Confidentiality of Alcohol and Drug Abuse Patient Records regulations: The Federal rules restrict any use of the information to criminally investigate or prosecute any alcohol or drug abuse patient.[facility] HospitalIn the event this information is protected by the Federal Confidentiality of Alcohol and Drug Abuse Patient Records regulations: The Federal rules restrict any use of the information to criminally investigate or prosecute any alcohol or drug abuse patient.[facility] HospitalIn the event this information is protected by the Federal Confidentiality of Alcohol and Drug Abuse Patient Records regulations: The Federal rules restrict any use of the information to criminally investigate or prosecute any alcohol or drug abuse patient.[facility] HospitalIn the event this information is protected by the Federal Confidentiality of Alcohol and Drug Abuse Patient Records regulations: The Federal rules restrict any use of the information to criminally investigate or prosecute any alcohol or drug abuse patient.[facility] HospitalIn the event this information is protected by the Federal Confidentiality of Alcohol and Drug Abuse Patient Records regulations: The Federal rules restrict any use of the information to criminally investigate or prosecute any alcohol or drug abuse patient.[facility] HospitalIn the event this information is protected by the Federal Confidentiality of Alcohol and Drug Abuse Patient Records regulations: The Federal rules restrict any use of the information to criminally investigate or prosecute any alcohol or drug abuse patient.[facility] HospitalIn the event this information is protected by the Federal Confidentiality of Alcohol and Drug Abuse Patient Records regulations: The Federal rules restrict any use of the information to criminally investigate or prosecute any alcohol or drug abuse patient.[facility] HospitalIn the event this information is protected by the Federal Confidentiality of Alcohol and Drug Abuse Patient Records regulations: The Federal rules restrict any use of the information to criminally investigate or prosecute any alcohol or drug abuse patient.[facility] HospitalIn the event this information is protected by the Federal Confidentiality of Alcohol and Drug Abuse Patient Records regulations: The Federal rules restrict any use of the information to criminally investigate or prosecute any alcohol or drug abuse patient.[facility] HospitalIn the event this information is protected by the Federal Confidentiality of Alcohol and Drug Abuse Patient Records regulations: The Federal rules restrict any use of the information to criminally investigate or prosecute any alcohol or drug abuse patient.[facility] HospitalIn the event this information is protected by the Federal Confidentiality of Alcohol and Drug Abuse Patient Records regulations: The Federal rules restrict any use of the information to criminally investigate or prosecute any alcohol or drug abuse patient.[facility] HospitalIn the event this information is protected by the Federal Confidentiality of Alcohol and Drug Abuse Patient Records regulations: The Federal rules restrict any use of the information to criminally investigate or prosecute any alcohol or drug abuse patient.[facility] HospitalIn the event this information is protected by the Federal Confidentiality of Alcohol and Drug Abuse Patient Records regulations: The Federal rules restrict any use of the information to criminally investigate or prosecute any alcohol or drug abuse patient.[facility] HospitalIn the event this information is protected by the Federal Confidentiality of Alcohol and Drug Abuse Patient Records regulations: The Federal rules restrict any use of the information to criminally investigate or prosecute any alcohol or drug abuse patient.[facility] HospitalIn the event this information is protected by the Federal Confidentiality of Alcohol and Drug Abuse Patient Records regulations: The Federal rules restrict any use of the information to criminally investigate or prosecute any alcohol or drug abuse patient.[facility] HospitalIn the event this information is protected by the Federal Confidentiality of Alcohol and Drug Abuse Patient Records regulations: The Federal rules restrict any use of the information to criminally investigate or prosecute any alcohol or drug abuse patient.[facility] HospitalIn the event this information is protected by the Federal Confidentiality of Alcohol and Drug Abuse Patient Records regulations: The Federal rules restrict any use of the information to criminally investigate or prosecute any alcohol or drug abuse patient.[facility] HospitalIn the event this information is protected by the Federal Confidentiality of Alcohol and Drug Abuse Patient Records regulations: The Federal rules restrict any use of the information to criminally investigate or prosecute any alcohol or drug abuse patient.[facility] HospitalIn the event this information is protected by the Federal Confidentiality of Alcohol and Drug Abuse Patient Records regulations: The Federal rules restrict any use of the information to criminally investigate or prosecute any alcohol or drug abuse patient.[facility] HospitalIn the event this information is protected by the Federal Confidentiality of Alcohol and Drug Abuse Patient Records regulations: The Federal rules restrict any use of the information to criminally investigate or prosecute any alcohol or drug abuse patient.[facility] HospitalIn the event this information is protected by the Federal Confidentiality of Alcohol and Drug Abuse Patient Records regulations: The Federal rules restrict any use of the information to criminally investigate or prosecute any alcohol or drug abuse patient.[facility] HospitalIn the event this information is protected by the Federal Confidentiality of Alcohol and Drug Abuse Patient Records regulations: The Federal rules restrict any use of the information to criminally investigate or prosecute any alcohol or drug abuse patient.[facility] HospitalIn the event this information is protected by the Federal Confidentiality of Alcohol and Drug Abuse Patient Records regulations: The Federal rules restrict any use of the information to criminally investigate or prosecute any alcohol or drug abuse patient.[facility] HospitalIn the event this information is protected by the Federal Confidentiality of Alcohol and Drug Abuse Patient Records regulations: The Federal rules restrict any use of the information to criminally investigate or prosecute any alcohol or drug abuse patient.[facility] HospitalIn the event this information is protected by the Federal Confidentiality of Alcohol and Drug Abuse Patient Records regulations: The Federal rules restrict any use of the information to criminally investigate or prosecute any alcohol or drug abuse patient.[facility] HospitalIn the event this information is protected by the Federal Confidentiality of Alcohol and Drug Abuse Patient Records regulations: The Federal rules restrict any use of the information to criminally investigate or prosecute any alcohol or drug abuse patient.[facility] HospitalIn the event this information is protected by the Federal Confidentiality of Alcohol and Drug Abuse Patient Records regulations: The Federal rules restrict any use of the information to criminally investigate or prosecute any alcohol or drug abuse patient.[facility] HospitalIn the event this information is protected by the Federal Confidentiality of Alcohol and Drug Abuse Patient Records regulations: The Federal rules restrict any use of the information to criminally investigate or prosecute any alcohol or drug abuse patient.[facility] HospitalIn the event this information is protected by the Federal Confidentiality of Alcohol and Drug Abuse Patient Records regulations: The Federal rules restrict any use of the information to criminally investigate or prosecute any alcohol or drug abuse patient.[facility] HospitalIn the event this information is protected by the Federal Confidentiality of Alcohol and Drug Abuse Patient Records regulations: The Federal rules restrict any use of the information to criminally investigate or prosecute any alcohol or drug abuse patient.[facility] HospitalIn the event this information is protected by the Federal Confidentiality of Alcohol and Drug Abuse Patient Records regulations: The Federal rules restrict any use of the information to criminally investigate or prosecute any alcohol or drug abuse patient.[facility] HospitalIn the event this information is protected by the Federal Confidentiality of Alcohol and Drug Abuse Patient Records regulations: The Federal rules restrict any use of the information to criminally investigate or prosecute any alcohol or drug abuse patient.[facility] HospitalIn the event this information is protected by the Federal Confidentiality of Alcohol and Drug Abuse Patient Records regulations: The Federal rules restrict any use of the information to criminally investigate or prosecute any alcohol or drug abuse patient.[facility] Reason for Visit (unrecogniz ed section and content) Reason Comments Wound Check Bilateral lower legs Specialty Diagnoses / Procedures Referred By Contac t Referred To Contact Diagnoses Non-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, 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, 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, 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) [L97.921] Non-pressure chronic ulcer of right lower leg, 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) [L97.911] Procedures DEBRIDEMENT SUBCUTANEOUS TISSUE 20 SQ CM/< DBRDMT SUBCUTANEOUS TISSUE EA ADDL 20 SQ CM NEGATIVE PRESSURE WOUND THERAPY DME </= 50 SQ CM NEGATIVE PRESSURE WOUND THERAPY DME >50 SQ CM DEBRIDEMENT MUSCLE & FASCIA 20 SQ CM/< DEBRIDEMENT BONE EA ADDL 20 SQ CM/< INCISION & DRAINAGE LEG/ANKLE ABSCESS/HEMATOMA BIOPSY BONE OPEN SUPERFICIAL DEBRIDEMENT SUBCUTANEOUS TISSUE FIRST 20 SQ CM OR LESS LOWER EXTREMITY DEBRIDEMENT SUBCUTANEOUS TISSUE FOOT EACH ADDITIONAL 20 SQ CM APPLICATION WOUND VAC EXTREMITY LOWER TOTAL WOUND SURFACE LESS THAN 50 SQ CENTIMETERS APPLICATION WOUND VAC EXTREMITY LOWER TOTAL WOUND SURFACE GREATER THAN 50 SQ CENTIMETERS DEBRIDEMENT MUSCLE/FASCIA FIRST 20 SQ CM OR LESS LOWER EXTREMITY DEBRIDEMENT BONE LOWER EXTREMITY EACH ADDITIONAL 20 SQ CM OR PART THEREOF INCISION AND DRAINAGE ABSCESS LEG OR ANKLE BIOPSY BONE OPEN; SUPERFICIAL LOWER EXTREMITY [facility] [address] [place] [address] Referral ID Status Reason Start Date Expiration Date Visits Re quested Visits Authorized [id number] 1 1 Reason Comments PT Progress Note Specialty Diagnoses / Procedures Referred By Castro t Referred To Contact Physical Therapy / PHYSICAL THERAPY Diagnoses bilateral lower legs Dr. Bolanos referring Procedures NEW RS PT WOUND CARE Giovanni Bolanos, DPM [address] [place] [address] Hu Barraza, PT [address] [place] [address] Referral ID Status Reason Start Date Expiration Date V isits Requested Visits Authorized [id number] Authorized 09/06/2021 09/05/2022 60 60 Reason Comments Physical Therapy Reason Comments Wound Check bilateral lower legs Reason Comments Wound Check BiLE Reason Comments Follow Up Reason Comments Wound Check BLE Reason Comments Patient Update Reason Comments CARD New Patient Consult SOB and Leg Swe lling Reason Comments Received Outside Medical Records Reason Comments Assessment Patient Education Specialty Diagnoses / Procedures Referred By Castro tsai Referred To Contact 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 Reason Comments Leg Edema Breathing Problem Specialty Diagnoses / Procedures Referred By Contac t Referred To Contact Cardiology / [facility]ARD [facility] Diagnoses Routine general medical examination at health care facility NEW CHF Procedures OFFICE/OUTPATIENT NEW MODERATE MDM 45-59 MINUTES NEW PATIENT Self Ayan Wallis, FINANCIAL REPORTING ANALYST.HEEL CURVER [address] [place] [address] Referral ID Status Reason Start Date Expiration Date Visits Re quested Visits Authorized [id number] Closed 05/21/2022 09/05/2022 1 1 Reason Comments Psg Check In (Adult) Reason Comments Established Patient Follow-Up Specialty Diagnoses / Procedures Referred By Castro tsai Referred To Contact Cardiology / [facility] Diagnoses Follow-up exam 6 week follow up Procedures OFFICE/OUTPATIENT ESTABLISHED MOD MDM 30-39 MIN EST PATIENT Olegario Sadler, DO [address] [place] [address] Shanel Newell, FINANCIAL REPORTING ANALYST.HEEL CURVER [address] [place] [address] Referral ID Status Reason Start Date Expiration Date Visits Re quested Visits Authorized [id number] Closed 06/03/2022 09/05/2022 1 1 Reason Comments ADS Form [employer] Gemma 2 Re ader/ Sensor Reason Comments Results Reason Comments Orders Reason Comments Patient Question 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 [place] [address] [facility] [address] [place] [phone] Referral ID Status Reason Start Date Expiration Date V isits Requested Visits Authorized [id number] Closed Auto-Generate d Referral 07/15/2022 08/14/2023 1 1 Reason Comments Follow Up Established Patient Reason Comments finger cut Reason Comments Laceration Left pointer finger Reason Comments Wound Check Right foot Reason Comments Wound Check Right lower leg Reason Comments Wound Check Right leg & foot Reason Comments Wound Check Right Foot Reason Comments Wound Check right foot wound Reason Comments Wound Care Reason Comments Wound Check Right Foot Reason Comments Breathing Problem Reason Comments Reminder Call Reason Comments Wound Check Left foot amp site Reason Comments Vit b12 injection Reason Comments Wound Check Left Foot Reason Comments Wound Check Right 2nd Toe Reason Comments Physical Would like B12 shot today Reason Comments UTI Reason Comments New Patient Evaluation Referred by RICH Newell/Dr Sadler for possible NELLY. Here to review sleep studies. Specialty Diagnoses / Procedures Referred By Castro tsai Referred To Contact Diagnoses NELLY (obstructive sleep apnea) Procedures CONSULT TO SLEEP MEDICINE - ADULT OFFICE/OUTPATIENT NEW HIGH MDM 60-74 MINUTES Shanel Newell APRN.[facility] [address] [place] [address] [facility] [address] [place] [address] Referral ID Status Reason Start Date Expiration Date Visits Requested Visits Authorized [id number] Pending Review PCP Requested Referral 06/03/2022 06/03/2023 1 1 Reason Onset Date Comments Bleeding/Bruising 02/08/2023 Reason Comments Patient Question Appointment Reason Comments Wound Check Right great toe Reason Comments Other NURSE / B12 INJECTIO N Reason Comments Orders [facility] Reason Comments Orders BMP ordered Reason Comments Follow Up Room 10No cardiac co ncerns Reason Comments CCM Updated Plan Of Care Reason Comments Nurse Visit B12 and Zoster Reason Comments Nurse Visit B12 Injection Reason Comments Wound Check right foot Reason Comments Symptoms Reason Comments Symptoms Recent fall Head Injury Reason Comments Pre-Op Visit Reason Comments Initial Consult Appointment Reason Comments B-12 Injection Reason Comments Wound Check Right great toe amp site Reason Comments New Patient Reason Comments Cardiac Clearance Dr. Ureña Reason Comments Preparations For Surgery Reason Comments Wound Check Right leg and foot Reason Comments Appointment Reason Comments Established Patient 3 MO Reason Comments Refill Request Reason Comments Nurse Visit Vit B 12 Inj Reason Comments Results [facility] Reason Comments Office notes requested ADS Reason Comments Established Patient Reason Comments Wound Check bilateral lower legs Reason Comments Follow Up Reason Comments Orders Physical Therapy Ord er Balance/Welling FAX [phone] Reason Comments Wound Check Bilateral lower extr emities Reason Comments Diabetic Eye Exam [facility] Reason Comments Orders PT evaluation report Reason Comments progress notes Specialty Diagnoses / Procedures Referred By Castro tsai Referred To Contact Gynecology / [facility] Diagnoses Mixed stress and urge urinary incontinence Procedures CONSULT TO GYNECOLOGY OFFICE/OUTPATIENT [facility] MDM 60-74 MINUTES Hamlet Garay MD [address] [facility] [address] [place] [address] Referral ID Status Reason Start Date Expiration Date V isits Requested Visits Authorized [id number] Closed PCP Requested Referral Auto-Generated Referral 08/09/2023 08/08/2024 1 1 Reason Comments Nurse Visit B12 Specialty Diagnoses / Procedures Referred By Contac t Referred To Contact Physical Therapy Diagnoses OAB (overactive bladder) Procedures [place] OFFICE/OUTPATIENT [facility] MDM 60 MINUTES Hamlet Garay MD [address] [place] [address] [facility] [address] 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 - Other CHF Reason Comments Wound Check Bilateral Lower Legs Reason Onset Date Comments Error (VOID this visit) 10/03/2024 Reason Comments New Patient Bilateral achilles w ounds Reason Comments Wound Check Lower legs Reason Onset Date Comments Other 10/12/2024 Last OV notes Reason Comments home blood pressure log [facility] Reason Comments Wound Check Right lower leg Reason Comments Anesthesia Consult Reason Comments Wound Check Lower extremities Reason Comments Office Notes ADS Reason Onset Date Comments Refill Request 01/18/2025 Reason Comments CoPat Management FOR IDC USE ONLY Reason Onset Date Comments Refill Request 01/31/2025 Reason Comments Received Outside Medical Records [facility] re: Diabetic Eye Exam 02/02/25 Care Teams (unrecognized sec tion and content) Brokerage Coordinator Relationship Specialty Start Date End Date Alvina Sullivan PCP - General Family Practice 07/20/12 Brokerage Coordinator Relationship Specialty Start Date End Date Alvina Sullivan PCP - General Family Practice 07/20/12 Brokerage Coordinator Relationship Specialty Start Date End Date Nate, Alvina Edward PCP - General Family Practice 07/20/12 Brokerage Coordinator Relationship Specialty Start Date End Date Nate, Alvina Edward PCP - General Family Practice 07/20/12 Brokerage Coordinator Relationship Specialty Start Date End Date Nate, Alvina Edward PCP - General Family Practice 07/20/12 Brokerage Coordinator Relationship Specialty Start Date End Date Nate, Alvina Edward PCP - General Family Practice 07/20/12 Brokerage Coordinator Relationship Specialty Start Date End Date Nate, Alvina Edward PCP - General Family Practice 07/20/12 Brokerage Coordinator Relationship Specialty Start Date End Date Nate, Alvina Edward PCP - General Family Practice 07/20/12 Brokerage Coordinator Relationship Specialty Start Date End Date Nate, Alvina Edward PCP - General Family Practice 07/20/12 Brokerage Coordinator Relationship Specialty Start Date End Date Nate, Alvina Edward PCP - General Family Practice 07/20/12 Brokerage Coordinator Relationship Specialty Start Date End Date Nate, Alvina Edward PCP - General Family Practice 07/20/12 Brokerage Coordinator Relationship Specialty Start Date End Date Nate, Alvina Edward PCP - General Family Practice 07/20/12 Brokerage Coordinator Relationship Specialty Start Date End Date Nate, Alvina Edward PCP - General Family Practice 07/20/12 Brokerage Coordinator Relationship Specialty Start Date End Date Alvina Sullivan PCP - General Family Practice 07/20/12 Brokerage Coordinator Relationship Specialty Start Date End Date NateAlvina becke PCP - General Family Medicine 07/20/12 Brokerage Coordinator Relationship Specialty Start Date End Date NateAlvina becke PCP - General Family Medicine 07/20/12 Brokerage Coordinator Relationship Specialty Start Date End Date Alvina Sullivane PCP - General Family Medicine 07/20/12 Brokerage Coordinator Relationship Specialty Start Date End Date Alvina Sullivane PCP - General Family Medicine 07/20/12 Brokerage Coordinator Relationship Specialty Start Date End Date Eldon Gill DO [address] [facility] [place] [address] PCP - General Family Medicine 07/07/22 Brokerage Coordinator Relationship Specialty Start Date End Date Eldon Gill DO [address] [facility] [place] [address] PCP - General Family Medicine 07/07/22 Brokerage Coordinator Relationship Specialty Start Date End Date Eldon Gill DO [address] [facility] [place] [address] PCP - General Family Medicine 07/07/22 Brokerage Coordinator Relationship Specialty Start Date End Date Eldon Gill DO [address] [facility] [place] [address] PCP - General Family Medicine 07/07/22 Brokerage Coordinator Relationship Specialty Start Date End Date Eldon Gill DO [address] [facility] / [facility] [place] [address] PCP - General Family Medicine 07/07/22 Brokerage Coordinator Relationship Specialty Start Date End Date Eldon Gill DO [address] [facility] / [facility] [place] [address] PCP - General Family Medicine 07/07/22 Brokerage Coordinator Relationship Specialty Start Date End Date Eldon Gill DO [address] [facility] / [facility] [place] [address] PCP - General Family Medicine 07/07/22 Brokerage Coordinator Relationship Specialty Start Date End Date Eldon Gill DO [address] [facility] / [facility] [place] [address] PCP - General Family Medicine 07/07/22 Brokerage Coordinator Relationship Specialty Start Date End Date Eldon Gill DO [address] [facility] / [facility] [place] [address] PCP - General Family Medicine 07/07/22 Brokerage Coordinator Relationship Specialty Start Date End Date Eldon Gill DO [address] [facility] / [facility] [place] [address] PCP - General Family Medicine 07/07/22 Brokerage Coordinator Relationship Specialty Start Date End Date Eldon Gill DO [address] [facility] / [facility] [place] [address] PCP - General Family Medicine 07/07/22 Brokerage Coordinator Relationship Specialty Start Date End Date Eldon Gill DO [address] [facility] / [facility] [place] [address] PCP - General Family Medicine 07/07/22 Brokerage Coordinator Relationship Specialty Start Date End Date Eldon Gill DO [address] [facility] / [facility] [place] [address] PCP - General Family Medicine 07/07/22 Brokerage Coordinator Relationship Specialty Start Date End Date Eldon Gill DO [address] [facility] / [facility] [place] [address] PCP - General Family Medicine 07/07/22 Brokerage Coordinator Relationship Specialty Start Date End Date Eldon Gill DO [address] [facility] / [facility] [place] [address] PCP - General Family Medicine 07/07/22 Brokerage Coordinator Relationship Specialty Start Date End Date Eldon Gill DO [address] [facility] / [facility] [place] [address] PCP - General Family Medicine 07/07/22 Brokerage Coordinator Relationship Specialty Start Date End Date Eldon Gill DO [address] [facility] / [facility] [place] [address] PCP - General Family Medicine 07/07/22 Brokerage Coordinator Relationship Specialty Start Date End Date Eldon Gill DO [address] [facility] / [facility] [place] [address] PCP - General Family Medicine 07/07/22 Brokerage Coordinator Relationship Specialty Start Date End Date Eldon Gill DO [address] [facility] / [facility] [place] [address] PCP - General Family Medicine 07/07/22 Brokerage Coordinator Relationship Specialty Start Date End Date Eldon Gill DO [address] [facility] / [facility] [place] [address] PCP - General Family Medicine 07/07/22 Brokerage Coordinator Relationship Specialty Start Date End Date Eldon Gill DO [address] [facility] / [facility] [place] [address] PCP - General Family Medicine 07/07/22 Brokerage Coordinator Relationship Specialty Start Date End Date Eldon Gill DO [address] [facility] / [facility] [place] [address] PCP - General Family Medicine 07/07/22 Brokerage Coordinator Relationship Specialty Start Date End Date Eldon Gill DO [address] [facility] / [facility] [place] [address] PCP - General Family Medicine 07/07/22 Brokerage Coordinator Relationship Specialty Start Date End Date Eldon Gill, DO [address] [facility] / [facility] [place] [address] PCP - General Family Medicine 07/07/22 Brokerage Coordinator Relationship Specialty Start Date End Date Eldon Gill DO [address] [facility] / [facility] [place] [address] PCP - General Family Medicine 07/07/22 Brokerage Coordinator Relationship Specialty Start Date End Date Eldon Gill, DO [address] [facility] / [facility] [place] [address] PCP - General Family Medicine 07/07/22 Brokerage Coordinator Relationship Specialty Start Date End Date Eldon Gill DO [address] [facility] / [facility] [place] [address] PCP - General Family Medicine 07/07/22 Brokerage Coordinator Relationship Specialty Start Date End Date Eldon Gill, DO [address] [facility] [place] [address] PCP - General Family Medicine 07/07/22 Brokerage Coordinator Relationship Specialty Start Date End Date Eldon Gill, DO [address] [facility] [place] [address] PCP - General Family Medicine 07/07/22 Brokerage Coordinator Relationship Specialty Start Date End Date Eldon Gill, DO [address] [facility] [place] [address] PCP - General Family Medicine 07/07/22 Brokerage Coordinator Relationship Specialty Start Date End Date Eldon Gill, DO [address] [facility] [place] [address] PCP - General Family Medicine 07/07/22 Brokerage Coordinator Relationship Specialty Start Date End Date Eldon Gill, DO [address] [facility] [place] [address] PCP - General Family Medicine 07/07/22 Brokerage Coordinator Relationship Specialty Start Date End Date Eldon Gill, DO [address] [facility] / [facility] [place] [address] PCP - General Family Medicine 07/07/22 Brokerage Coordinator Relationship Specialty Start Date End Date Eldon Gill, DO [address] [facility] [place] [address] PCP - General Family Medicine 07/07/22 Brokerage Coordinator Relationship Specialty Start Date End Date Eldon Gill, DO [address] [facility] [place] [address] PCP - General Family Medicine 07/07/22 Brokerage Coordinator Relationship Specialty Start Date End Date Eldon Gill, DO [address] [facility] [place] [address] PCP - General Family Medicine 07/07/22 Brokerage Coordinator Relationship Specialty Start Date End Date Eldon Gill DO [address] [facility] / [facility] [place] [address] PCP - General Family Medicine 07/07/22 Brokerage Coordinator Relationship Specialty Start Date End Date Eldon Gill DO [address] [facility] / [facility] [place] [address] PCP - General Family Medicine 07/07/22 Brokerage Coordinator Relationship Specialty Start Date End Date Eldon Gill DO [address] [place] [address] PCP - General Family Medicine 07/07/22 Brokerage Coordinator Relationship Specialty Start Date End Date Eldon Gill DO [address] [facility] [place] [address] PCP - General Family Medicine 07/07/22 Brokerage Coordinator Relationship Specialty Start Date End Date Eldon Gill DO [address] [facility] / [facility] [place] [address] PCP - General Family Medicine 07/07/22 Brokerage Coordinator Relationship Specialty Start Date End Date Eldon Gill, DO [address] [facility] / [facility] [place] [address] PCP - General Family Medicine 07/07/22 Brokerage Coordinator Relationship Specialty Start Date End Date Eldon Gill DO [address] [facility] / [facility] [place] [address] PCP - General Family Medicine 07/07/22 Brokerage Coordinator Relationship Specialty Start Date End Date Eldon Gill DO [address] [facility] / [facility] [place] [address] PCP - General Family Medicine 07/07/22 Brokerage Coordinator Relationship Specialty Start Date End Date Eldon Gill DO [address] [facility] / [facility] [place] [address] PCP - General Family Medicine 07/07/22 Brokerage Coordinator Relationship Specialty Start Date End Date Eldon Gill DO [address] [facility] / [facility] [place] [address] PCP - General Family Medicine 07/07/22 Brokerage Coordinator Relationship Specialty Start Date End Date Eldon Gill DO [address] [facility] [place] [address] PCP - General Family Medicine 07/07/22 Brokerage Coordinator Relationship Specialty Start Date End Date Eldon Gill DO [address] [facility] [place] [address] PCP - General Family Medicine 07/07/22 Brokerage Coordinator Relationship Specialty Start Date End Date Eldon Gill DO [address] [facility] [place] [address] PCP - General Family Medicine 07/07/22 Brokerage Coordinator Relationship Specialty Start Date End Date Eldon Gill DO [address] [facility] [place] [address] PCP - General Family Medicine 07/07/22 Brokerage Coordinator Relationship Specialty Start Date End Date Eldon Gill DO [address] [facility] / [facility] [place] [address] PCP - General Family Medicine 07/07/22 Brokerage Coordinator Relationship Specialty Start Date End Date Eldon Gill DO [address] [facility] / [facility] [place] [address] PCP - General Family Medicine 07/07/22 Brokerage Coordinator Relationship Specialty Start Date End Date Eldon Gill DO [address] [facility] / [facility] [place] [address] PCP - General Family Medicine 07/07/22 Brokerage Coordinator Relationship Specialty Start Date End Date Eldon Gill DO [address] [facility] [place] [address] PCP - General Family Medicine 07/07/22 Brokerage Coordinator Relationship Specialty Start Date End Date Eldon Gill DO [address] [facility] / [facility] [place] [address] PCP - General Family Medicine 07/07/22 Brokerage Coordinator Relationship Specialty Start Date End Date Eldon Gill DO [address] [facility] [place] [address] PCP - General Family Medicine 07/07/22 Brokerage Coordinator Relationship Specialty Start Date End Date Eldon Gill DO [address] [facility] [place] [address] PCP - General Family Medicine 07/07/22 Brokerage Coordinator Relationship Specialty Start Date End Date Eldon Gill DO [address] [facility] / [facility] [place] [address] PCP - General Family Medicine 07/07/22 Brokerage Coordinator Relationship Specialty Start Date End Date Eldon Gill DO [address] [facility] / [facility] [place] [address] PCP - General Family Medicine 07/07/22 Brokerage Coordinator Relationship Specialty Start Date End Date Eldon Gill DO [address] [facility] / [facility] [place] [address] PCP - General Family Medicine 07/07/22 Brokerage Coordinator Relationship Specialty Start Date End Date Eldon Gill DO [address] [facility] [place] [address] PCP - General Family Medicine 07/07/22 Brokerage Coordinator Relationship Specialty Start Date End Date Eldon Gill DO [address] [facility] / [facility] [place] [address] PCP - General Family Medicine 07/07/22 Brokerage Coordinator Relationship Specialty Start Date End Date Eldon Gill DO [address] [facility] / [facility], [place] [address] PCP - General Family Medicine 07/07/22 Brokerage Coordinator Relationship Specialty Start Date End Date Eldon Gill DO [address] [facility] [place] [address] PCP - General Family Medicine 07/07/22 Brokerage Coordinator Relationship Specialty Start Date End Date Eldon Gill DO [address] [facility] / [facility], [place] [address] PCP - General Family Medicine 07/07/22 Brokerage Coordinator Relationship Specialty Start Date End Date Eldon Gill DO [address] [facility] / [facility], [place] [address] PCP - General Family Medicine 07/07/22 Brokerage Coordinator Relationship Specialty Start Date End Date Eldon Gill DO [address] [facility] / [facility], [place] [address] PCP - General Family Medicine 07/07/22 Olegario Sadler DO [address] [place] [address] Cardiology 08/16/23 Brokerage Coordinator Relationship Specialty Start Date End Date Eldon Gill DO [address] [facility] / [facility], [place] [address] PCP - General Family Medicine 07/07/22 Olegario Sadler DO [address] [place] [address] Cardiology 08/16/23 Brokerage Coordinator Relationship Specialty Start Date End Date Eldon Gill DO [address] [facility] / [facility], [place] [address] PCP - General Family Medicine 07/07/22 Olegario Sadler DO [address] [place] [address] Cardiology 08/16/23 Brokerage Coordinator Relationship Specialty Start Date End Date Eldon Gill DO [address] [place] [address] PCP - General Family Medicine 07/07/22 Olegario Sadler DO [address] [place] [address] Cardiology 08/16/23 Brokerage Coordinator Relationship Specialty Start Date End Date Eldon Gill DO [address] [place] [address] PCP - General Family Medicine 07/07/22 Olegario Sadler DO [address] [place] [address] Cardiology 08/16/23 Brokerage Coordinator Relationship Specialty Start Date End Date Eldon Gill DO [address] [place] [address] PCP - General Family Medicine 07/07/22 Olegario Sadler DO [address] [place] [address] Cardiology 08/16/23 Brokerage Coordinator Relationship Specialty Start Date End Date Eldon Gill DO [address] [place] [address] PCP - General Family Medicine 07/07/22 Olegario Sadler DO [address] [place] [address] Cardiology 08/16/23 Brokerage Coordinator Relationship Specialty Start Date End Date Eldon Gill DO [address] [facility] / [facility] [place] [address] PCP - General Family Medicine 07/07/22 Olegario Sadler DO [address] [place] [address] Cardiology 08/16/23 Brokerage Coordinator Relationship Specialty Start Date End Date Eldon Gill DO [address] [facility] / [facility] [place] [address] PCP - General Family Medicine 07/07/22 Olegario Sadler DO [address] [place] [address] Cardiology 08/16/23 Brokerage Coordinator Relationship Specialty Start Date End Date Eldon Gill DO [address] [facility] [place] [address] PCP - General Family Medicine 07/07/22 Olegario Sadler DO [address] [place] [address] Cardiology 08/16/23 Brokerage Coordinator Relationship Specialty Start Date End Date Eldon Gill DO [address] [facility] / [place] [address] PCP - General Family Medicine 07/07/22 Olegario Sadler DO [address] [place] [address] Cardiology 08/16/23 Brokerage Coordinator Relationship Specialty Start Date End Date Eldon Gill DO [address] [facility] / [facility] [place] [address] PCP - General Family Medicine 07/07/22 Olegario Sadler DO [address] [place] [address] Cardiology 08/16/23 Brokerage Coordinator Relationship Specialty Start Date End Date Eldon Gill DO [address] [facility] / [facility] [place] [address] PCP - General Family Medicine 07/07/22 Olegario Sadler DO [address] [place] [address] Cardiology 08/16/23 Brokerage Coordinator Relationship Specialty Start Date End Date Eldon Gill DO [address] [facility] / [facility] [place] [address] PCP - General Family Medicine 07/07/22 Olegario Sadler DO [address] [place] [address] Cardiology 08/16/23 Brokerage Coordinator Relationship Specialty Start Date End Date Eldon Gill DO [address] [facility] / [place] [address] PCP - General Family Medicine 07/07/22 Olegario Sadler DO [address] [place] [address] Cardiology 08/16/23 Brokerage Coordinator Relationship Specialty Start Date End Date Eldon Gill DO [address] [place] / [facility] [place] [address] PCP - General Family Medicine 07/07/22 Olegario Sadler DO [address] [place] [address] Cardiology 08/16/23 Brokerage Coordinator Relationship Specialty Start Date End Date Eldon Gill DO [address] [place] / [facility] [place] [address] PCP - General Family Medicine 07/07/22 Olegario Sadler DO [address] [place] [address] Cardiology 08/16/23 Brokerage Coordinator Relationship Specialty Start Date End Date Eldon Gill DO [address] [place] / [facility] [place] [address] PCP - General Family Medicine 07/07/22 Olegario Sadler DO [address] [place] [address] Cardiology 08/16/23 Brokerage Coordinator Relationship Specialty Start Date End Date Eldon Gill DO [address] [place] / [place] [address] PCP - General Family Medicine 07/07/22 Olegario Sadler DO [address] [place] [address] Cardiology 08/16/23 Brokerage Coordinator Relationship Specialty Start Date End Date Eldon Gill DO [address] [facility] / [place] [address] PCP - General Family Medicine 07/07/22 Olegario Sadler DO [address] [place] [address] Cardiology 08/16/23 Brokerage Coordinator Relationship Specialty Start Date End Date Eldon Gill DO [address] [place] [address] / [place] [address] PCP - General Family Medicine 07/07/22 Olegario Sadler DO [address] [place] [address] Cardiology 08/16/23 Brokerage Coordinator Relationship Specialty Start Date End Date Eldon Gill DO [address] [place] [address] / [place] [address] PCP - General Family Medicine 07/07/22 Olegario Sadler DO [address] [place] [address] Cardiology 08/16/23 Brokerage Coordinator Relationship Specialty Start Date End Date Eldon Gill DO [address] [place] [address] PCP - General Family Medicine 05/11/24 Brokerage Coordinator Relationship Specialty Start Date End Date Eldon Gill DO [address] [place] [address] PCP - General Family Medicine 05/11/24 Brokerage Coordinator Relationship Specialty Start Date End Date Eldon Gill DO [address] [place] [address] PCP - General Family Medicine 05/11/24 Brokerage Coordinator Relationship Specialty Start Date End Date Eldon Gill DO [address] [facility] / [facility] [place] [address] PCP - General Family Medicine 07/07/22 Olegario Sadler DO [address] [place] [address] Cardiology 08/16/23 Brokerage Coordinator Relationship Specialty Start Date End Date Eldon Gill DO [address] [facility] [place] [address] PCP - General Family Medicine 07/07/22 Olegario Sadler DO [address] [place] [address] Cardiology 08/16/23 Brokerage Coordinator Relationship Specialty Start Date End Date Eldon Gill DO [address] [facility] / [facility] [place] [address] PCP - General Family Medicine 07/07/22 Olegario Sadler DO [address] [place] [address] Cardiology 08/16/23 Brokerage Coordinator Relationship Specialty Start Date End Date Eldon Gill DO [address] [place] [address] PCP - General Family Medicine 07/07/22 Olegario Sadler DO [address] [place] [address] Cardiology 08/16/23 Brokerage Coordinator Relationship Specialty Start Date End Date JairoEldon gunn [address] [place] [address] PCP - General Family Medicine 05/11/24 Brokerage Coordinator Relationship Specialty Start Date End Date Eldon Gill DO [address] [place] [address] PCP - General Family Medicine 07/07/22 Olegario Sadler DO [address] [place] [address] Cardiology 08/16/23 Afsaneh Fernandez, RICH.HEEL CURVER [address] [place] [address] Auto Body Builder Apprentice Family Medicine 08/12/24 Brokerage Coordinator Relationship Specialty Start Date End Date Jairo RenettastephenDO [address] [place] [address] PCP - General Family Medicine 05/11/24 Brokerage Coordinator Relationship Specialty Start Date End Date Eldon Gill DO [address] [place] [address] PCP - General Family Medicine 07/07/22 Olegario Sadler DO [address] [place] [address] Cardiology 08/16/23 Afsaneh Fernandez APRN.HEEL CURVER [address] [place] [address] Auto Body Builder Apprentice Family Medicine 08/12/24 Brokerage Coordinator Relationship Specialty Start Date End Date Eldon Gill DO [address] [place] [address] PCP - General Family Medicine 07/07/22 Olegario Sadler DO [address] [place] [address] Cardiology 08/16/23 Afsaneh Fernandez, FINANCIAL REPORTING ANALYST.HEEL CURVER [address] [place] [address] 35455 Auto Body Builder Apprentice Family Medicine 08/12/24 Brokerage Coordinator Relationship Specialty Start Date End Date Eldon Gill DO [address] [place] [address] PCP - General Family Medicine 07/07/22 Olegario Sadler DO [address] [place] [address] Cardiology 08/16/23 Afsaneh Fernandez, FINANCIAL REPORTING ANALYST.HEEL CURVER [address] [place] [address]197 Auto Body Builder Apprentice Family Medicine 08/12/24 Brokerage Coordinator Relationship Specialty Start Date End Date Eldon Gill DO [address] [place] [address] PCP - General Family Medicine 07/07/22 Olegario Sadler DO [address] [place] [address] Cardiology 08/16/23 Afsaneh Fernandez, RICH.HEEL CURVER [address] [place] [address] Auto Body Builder Apprentice Family Medicine 08/12/24 Brokerage Coordinator Relationship Specialty Start Date End Date Eldon Gill DO [address] [place] [address] PCP - General Family Medicine 05/11/24 Brokerage Coordinator Relationship Specialty Start Date End Date Eldon Gill DO [address] [place] [address] PCP - General Family Medicine 05/11/24 Brokerage Coordinator Relationship Specialty Start Date End Date Eldon Gill DO [address] [place] [address] PCP - General Family Medicine 07/07/22 Olegario Sadler DO [address] [place] [address] Cardiology 08/16/23 Afsaneh Fernandez, FINANCIAL REPORTING ANALYST.HEEL CURVER [address] [place] [address]853 Auto Body Builder Apprentice Family Medicine 08/12/24 Brokerage Coordinator Relationship Specialty Start Date End Date Eldon Gill DO [address] [place] [address] PCP - General Family Medicine 05/11/24 Brokerage Coordinator Relationship Specialty Start Date End Date Eldon Gill DO [address] [place], [place] [address], [place] [address] PCP - General Family Medicine 07/07/22 Olegario Sadler DO [address] [place] [address] Cardiology 08/16/23 Afsaneh Fernandez, FINANCIAL REPORTING ANALYST.HEEL CURVER [address] [place] [address] 72046 Auto Body Builder Apprentice Family Medicine 08/12/24 Brokerage Coordinator Relationship Specialty Start Date End Date [facility] [place] [address] PCP - General Family Medicine 07/07/22 10/24/24 Olegario Sadler DO [address] [place] [address] Cardiology 08/16/23 Afsaneh Fernandez, FINANCIAL REPORTING ANALYST.HEEL CURVER [address] [place] [address] 34961 Auto Body Builder Apprentice Family Medicine 08/12/24 Brokerage Coordinator Relationship Specialty Start Date End Date Olegario Sadler DO [address] [place] [address] 17041 Cardiology 08/16/23 Afsaneh Fernandez, FINANCIAL REPORTING ANALYST.HEEL CURVER [address] [place] [address] Auto Body Builder Apprentice Family Medicine 08/12/24 Brokerage Coordinator Relationship Specialty Start Date End Date Olegario Sadler DO [address] [place] [address] 77452 Cardiology 08/16/23 Afsaneh Fernandez, FINANCIAL REPORTING ANALYST.HEEL CURVER [address] [place] [address] Auto Body Builder Apprentice [facility] 08/12/24 Brokerage Coordinator Relationship Specialty Start Date End Date Olegario Sadler DO [address] [place] [address] 35657 Cardiology 08/16/23 Afsaneh Fernandez, FINANCIAL REPORTING ANALYST.HEEL CURVER [address] [place] [address] Auto Body Builder Apprentice [facility] 08/12/24 Brokerage Coordinator Relationship Specialty Start Date End Date Olegario Sadler DO [address] [place] [address] 28400 Cardiology 08/16/23 Afsaneh Fernandez, FINANCIAL REPORTING ANALYST.HEEL CURVER [address] [place] [address] 58734 Auto Body Builder Apprentice [facility] 08/12/24 Brokerage Coordinator Relationship Specialty Start Date End Date Olegario Sadler DO [address] [place] [address] 85865 Cardiology 08/16/23 Afsaneh Fernandez, FINANCIAL REPORTING ANALYST.HEEL CURVER [address] [place] [address] Auto Body Builder Apprentice [facility] 08/12/24 Brokerage Coordinator Relationship Specialty Start Date End Date Olegario Sadler DO 0 [place] [address] Cardiology 08/16/23 Afsaneh Fernandez, FINANCIAL REPORTING ANALYST.HEEL CURVER [address] [place] [address] Auto Body Builder Apprentice [facility] 08/12/24 Brokerage Coordinator Relationship Specialty Start Date End Date Olegario Sadler DO [address] [place] [address] 69367 Cardiology 08/16/23 Afsaneh Fernandez, FINANCIAL REPORTING ANALYST.HEEL CURVER [address] [place] [address] 94925 Auto Body Builder Apprentice [facility] 08/12/24 Brokerage Coordinator Relationship Specialty Start Date End Date Olegario Sadler DO [address] [place] [address] 02388 Cardiology 08/16/23 Afsaneh Fernandez, FINANCIAL REPORTING ANALYST.HEEL CURVER [address] [place] [address] 88146 Auto Body Builder Apprentice [facility] 08/12/24 Brokerage Coordinator Relationship Specialty Start Date End Date Olegario Sadler DO [address] [place] [address] 67816 Cardiology 08/16/23 Afsaneh Fernandez, FINANCIAL REPORTING ANALYST.HEEL CURVER [address] [place] [address] 70772 Auto Body Builder Apprentice [facility] 08/12/24 Brokerage Coordinator Relationship Specialty Start Date End Date Olegario Sadler DO [address] [place] [address] 34413 Cardiology 08/16/23 Afsaneh Fernandez, FINANCIAL REPORTING ANALYST.HEEL CURVER [address] [place] [address] 33919 Auto Body Builder Apprentice [facility] 08/12/24 Brokerage Coordinator Relationship Specialty Start Date End Date Olegario Sadler DO [address] [place] [address] 04152 Cardiology 08/16/23 Afsaneh Fernandez, FINANCIAL REPORTING ANALYST.HEEL CURVER [address] [place] [address] 24490 Auto Body Builder Apprentice [facility] 08/12/24 Brokerage Coordinator Relationship Specialty Start Date End Date Olegario Sadler DO [address] [place] [address] 73282 Cardiology 08/16/23 Afsaneh Fernandez, FINANCIAL REPORTING ANALYST.HEEL CURVER [address] [place] [address] 50067 Auto Body Builder Apprentice [facility] 08/12/24 Brokerage Coordinator Relationship Specialty Start Date End Date Olegario Sadler DO [address] [place] [address] 89032 Cardiology 08/16/23 Afsaneh Fernandez, FINANCIAL REPORTING ANALYST.HEEL CURVER [address] [place] [address] 02315 Auto Body Builder Apprentice [facility] 08/12/24 Brokerage Coordinator Relationship Specialty Start Date End Date Olegario Sadler DO [address] [place] [address] 97240 Cardiology 08/16/23 Afsaneh Fernandez, FINANCIAL REPORTING ANALYST.HEEL CURVER [address] [place] [address] 26324 Auto Body Builder Apprentice [facility] 08/12/24 Brokerage Coordinator Relationship Specialty Start Date End Date Olegario Sadler DO [address] [place] [address] 20892 Cardiology 08/16/23 Afsaneh Fernandez, FINANCIAL REPORTING ANALYST.HEEL CURVER [address] [place] [address] 35140 [facility] 08/[facility] Brokerage Coordinator Relationship Specialty Start Date End Date Olegario Sadler DO [address] [place] [address] 74689 Cardiology 08/16/23 Afsaneh Fernandez, FINANCIAL REPORTING ANALYST.HEEL CURVER [address] [place] [address] 51733 [facility] 08/12/24 Brokerage Coordinator Relationship Specialty Start Date End Date Olegario Sadler DO [address] [place] [address] 66795 Cardiology 08/16/23 Afsaneh Fernandez, FINANCIAL REPORTING ANALYST.HEEL CURVER [address] [place] [address] 79506 [facility] 08/12/24 Brokerage Coordinator Relationship Specialty Start Date End Date Olegario Sadler DO [address] [place] [address] 94189 Cardiology 08/16/23 Afsaneh Fernandez, FINANCIAL REPORTING ANALYST.HEEL CURVER [address] [place] [address] 45376 [facility] 08/12/24 Brokerage Coordinator Relationship Specialty Start Date End Date Olegario Sadler DO [address] [place] [address] Cardiology 08/16/23 Dennis AfsanehRICH.HEEL CURVER [address] [place] [address] Auto Body Builder Apprentice Family Medicine 08/12/24 Team Status: Active Member Role Status Dates Dr. Alvina Sullivan MD Primary Care Provider Active Team Status: Active Member Role Status Dates Dr. Alvina Sullivan MD Primary Care Provider Active Start: August 25, 2024 Donavon RUIZ MD Attending Provider Active S tart: August 25, 2024 Team Status: Active Member Role Status Dates Dr. Alvina Sullivan MD Primary Care Provider Active Start: September 01, 2024 Donavon RUIZ MD Attending Provider Active S tart: September 01, 2024 Team Status: Active Member Role Status Dates Dr. Alvina Sullivan MD Primary Care Provider Active Start: September 04, 2024 Donavon RUIZ MD Attending Provider Active S tart: September 04, 2024 Team Status: Active Member Role Status Dates Dr. Alvina Sullivan MD Primary Care Provider Active Start: September 07, 2024 Donavon RUIZ MD Attending Provider Active S tart: September 07, 2024 Team Status: Active Member Role Status Dates Dr. Alvina Sullivan MD Primary Care Provider Active Start: October 26, 2024 Donavon RUIZ MD Attending Provider Active S tart: October 26, 2024 Team Status: Active Member Role Status Dates Dr. Alvina Sullivan MD Primary Care Provider Active Start: October 30, 2024 Donavon RUIZ MD Attending Provider Active S tart: October 30, 2024 Team Status: Inactive Member Role Status Dates Dr. Alvina Sullivan MD Primary Care Provider Active Start: November 03, 2024 End: November 03, 2024 Donavon RUIZ MD Attending Provider Active S tart: November 03, 2024 End: November 03, 2024 Team Status: Active Member Role Status Dates Dr. Alvina Sullivan MD Primary Care Provider Active Start: November 06, 2024 Donavoncandido RUIZ MD Attending Provider Active S tart: November 06, 2024 Team Status: Inactive Member Role Status Dates Dr. Alvina Sullivan MD Primary Care Provider Active Start: November 06, 2024 End: November 06, 2024 Donavoncandido RUIZ MD Attending Provider Active S tart: November 06, 2024 End: November 06, 2024 Brokerage Coordinator Relationship Specialty Start Date End Date Olegario Sadler DO [address] [place] [address] Cardiology 08/16/23 Afsaneh Fernandez, FINANCIAL REPORTING ANALYST.HEEL CURVER [address] [place] [address] 79693 Auto [facility] 08/12/24 Brokerage Coordinator Relationship Specialty Start Date End Date Olegario Sadler DO [address] [place] [address] 67925 Cardiology 08/16/23 Afsaneh Fernandez, FINANCIAL REPORTING ANALYST.HEEL CURVER [address] [place] [address] 36422 Auto Body [facility] 08/12/24 Brokerage Coordinator Relationship Specialty Start Date End Date Olegario Sadler DO [address] [place] [address] 58766 Cardiology 08/16/23 Afsaneh Fernandez, FINANCIAL REPORTING ANALYST.HEEL CURVER [address] [place] [address] [facility] 08/12/24 Brokerage Coordinator Relationship Specialty Start Date End Date Olegario Sadler DO [address] [place] [address] 42054 Cardiology 08/16/23 Afsaneh Fernandez, FINANCIAL REPORTING ANALYST.HEEL CURVER [address] [place] [address] 02145 Auto Body Builder Apprentice Family Medicine 08/12/24 Brokerage Coordinator Relationship Specialty Start Date End Date Olegario Sadler DO [address] [place] [address] 36664 Cardiology 08/16/23 Afsaneh Fernandez, FINANCIAL REPORTING ANALYST.HEEL CURVER [address] [place] [address] 70825 Auto Body Builder Apprentice Family [facility] 08/12/24 Brokerage Coordinator Relationship Specialty Start Date End Date Olegario Sadler DO [address] [place] [address] 65285 Cardiology 08/16/23 Afsaneh Fernandez, FINANCIAL REPORTING ANALYST.HEEL CURVER [address] [place] [address] 74209 Auto Body Builder Apprentice Family [facility] 08/12/24 Brokerage Coordinator Relationship Specialty Start Date End Date Olegario Sadler DO [address] [place] [address] 44176 Cardiology 08/16/23 Afsaneh Fernandez, FINANCIAL REPORTING ANALYST.HEEL CURVER [address] [place] [address] 51143 Auto Body Builder Apprentice [facility] 08/12/24 Brokerage Coordinator Relationship Specialty Start Date End Date Olegario Sadler DO [address] [place] [address] 46707 Cardiology 08/16/23 Afsaneh Fernandez, FINANCIAL REPORTING ANALYST.HEEL CURVER [address] [place] [address] Auto Body Builder Apprentice Family [facility] 08/12/24 Brokerage Coordinator Relationship Specialty Start Date End Date Donavon Escobedo Sr. [address] [place] [address] PCP - General Internal Medicine 12/15/24 Afsaneh Fernandez, FINANCIAL REPORTING ANALYST.HEEL CURVER [address] [place] [address] 83584 Auto Body Builder Apprentice Family Medicine 08/12/24 Shanel Newell, FINANCIAL REPORTING ANALYST.HEEL CURVER [address] [place] [address] Cardiology 12/15/24 Brokerage Coordinator Relationship Specialty Start Date End Date Olegario Sadler DO [address] [place] [address] Cardiology 08/16/23 12/14/24 Afsaneh Fernandez, FINANCIAL REPORTING ANALYST.HEEL CURVER [address] [place] [address] [facility] Body [facility] 08/12/24 Brokerage Coordinator Relationship Specialty Start Date End Date Donavon Escobedo Sr. [address] [place] [address] PCP - General Internal Medicine 12/15/24 Afsaneh Fernandez, FINANCIAL REPORTING ANALYST.HEEL CURVER [address] [place] [address] Auto Body Builder Apprentice Family Medicine 08/12/24 Shanel Newell, FINANCIAL REPORTING ANALYST.HEEL CURVER [address] [place] [address] Cardiology 12/15/24 Brokerage Coordinator Relationship Specialty Start Date End Date Donavon Escobedo Sr. [address] [place] [address] [place] [address] PCP - General Internal Medicine 12/15/24 12/19/24 Afsaneh Fernandez, FINANCIAL REPORTING ANALYST.HEEL CURVER [address] [place] [address] Auto Body Builder Apprentice [facility] 08/12/24 Shanel Newell, FINANCIAL REPORTING ANALYST.HEEL CURVER [address] [place] [address] Cardiology 12/15/24 Brokerage Coordinator Relationship Specialty Start Date End Date Afsaneh Fernandez, FINANCIAL REPORTING ANALYST.HEEL CURVER [address] [place] [address] Auto Body Builder Apprentice Family Medicine 08/12/24 Shanel Newell, FINANCIAL REPORTING ANALYST.HEEL CURVER [address] [place] [address] Cardiology 12/15/24 Brokerage Coordinator Relationship Specialty Start Date End Date Afsaneh Fernandez, FINANCIAL REPORTING ANALYST.HEEL CURVER [address] [place] [address] Auto Body Builder Apprentice Family Medicine 08/12/24 Shanel [place], FINANCIAL REPORTING ANALYST.HEEL CURVER [address] [place] [address] Cardiology 12/15/24 Brokerage Coordinator Relationship Specialty Start Date End Date Afsaneh Fernandez, FINANCIAL REPORTING ANALYST.HEEL CURVER [address] [place] [address] [employer] Family [facility] 08/12/24 Shanel Newell, FINANCIAL REPORTING ANALYST.HEEL CURVER [address] [place] [address] Cardiology 12/15/24 Brokerage Coordinator Relationship Specialty Start Date End Date Afsaneh Fernandez APRN.HEEL CURVER [address] [place] [address] [employer]ice Family Medicine 08/12/24 Shanel Newell, FINANCIAL REPORTING ANALYST.HEEL CURVER [address] [place] [address] Cardiology 12/15/24 Brokerage Coordinator Relationship Specialty Start Date End Date Afsaneh Fernandez APRN.HEEL CURVER [address] [place] [address] [employer] Body Builder Apprentice [facility] Medicine 08/12/24 Shanel Newell, FINANCIAL REPORTING ANALYST.HEEL CURVER [address] [place] [address] Cardiology 12/15/24 Brokerage Coordinator Relationship Specialty Start Date End Date Afsaneh Fernandez APRN.HEEL CURVER [address] [place] [address] [employer] Family Medicine 08/12/24 Shanel Newell, FINANCIAL REPORTING ANALYST.HEEL CURVER [address] [place] [address] Cardiology 12/15/24 Brokerage Coordinator Relationship Specialty Start Date End Date Afsaneh Fernandez APRN.HEEL CURVER [address] [place] [address] [employer] Builder Apprentice Family Medicine 08/12/24 Shanel Newell, FINANCIAL REPORTING ANALYST.HEEL CURVER [address] [place] [address] Cardiology 12/15/24 Brokerage Coordinator Relationship Specialty Start Date End Date Afsaneh Fernandez, FINANCIAL REPORTING ANALYST.HEEL CURVER [address] [place] [address] [employer] Family Medicine 08/12/24 Shanel Newell, FINANCIAL REPORTING ANALYST.HEEL CURVER [address] [place] [address] Cardiology 12/15/24 Brokerage Coordinator Relationship Specialty Start Date End Date Afsaneh Fernandez, FINANCIAL REPORTING ANALYST.HEEL CURVER [address] [place] [address] [employer] Builder Apprentice [facility] Medicine 08/12/24 Shanel Newell, FINANCIAL REPORTING ANALYST.HEEL CURVER [address] [place] [address] Cardiology 12/15/24 Brokerage Coordinator Relationship Specialty Start Date End Date Afsaneh Fernandez, FINANCIAL REPORTING ANALYST.HEEL CURVER [address] [place] [address] [employer] Builder [employer]ice Family Medicine 08/12/24 Shanel Newell, FINANCIAL REPORTING ANALYST.HEEL CURVER [address] [place] [address] Cardiology 12/15/24 Brokerage Coordinator Relationship Specialty Start Date End Date Afsaneh Fernandez, FINANCIAL REPORTING ANALYST.HEEL CURVER [address] [place] [address] [employer] Builder [employer]rentice Family Medicine 08/12/24 Shanel Newell, FINANCIAL REPORTING ANALYST.HEEL CURVER [address] [place] [address] Cardiology 12/15/24 Team Status: Inactive Member Role Status Dates Dr. Alvina Sullivan MD Primary Care Provider Active Start: December 25, 2024 End: December 25, 2024 Donavoncandido RUIZ MD Attending Provider Active S tart: December 25, 2024 End: December 25, 2024 Team Status: Active Member Role Status Dates Dr. Alvina Sullivan MD Primary Care Provider Active Start: December 27, 2024 Donavon RUIZ MD Attending Provider Active S tart: December 27, 2024 Team Status: Active Member Role Status Dates Dr. Alvina Sullivan MD Primary Care Provider Active Start: January 01, 2025 Donavon RUIZ MD Attending Provider Active S tart: January 01, 2025 Team Status: Active Member Role Status Dates Dr. Alvina Sullivan MD Primary Care Provider Active Start: January 08, 2025 Donavon RUIZ MD Attending Provider Active S tart: January 08, 2025 Team Status: Active Member Role Status Dates Dr. Alvina Sullivan MD Primary Care Provider Active Start: January 09, 2025 Donavon RUIZ MD Attending Provider Active S tart: January 09, 2025 Team Status: Active Member Role Status Dates Dr. Alvina Sullivan MD Primary Care Provider Active Start: January 15, 2025 Donavon RUIZ MD Attending Provider Active S tart: January 15, 2025 Brokerage Coordinator Relationship Specialty Start Date End Date Afsaneh Fernandez, FINANCIAL REPORTING ANALYST.HEEL CURVER [address] [place] [address] [employer] Family Medicine 08/12/24 Shanel Newell, FINANCIAL REPORTING ANALYST.HEEL CURVER [address] [place] [address] Cardiology 12/15/24 Brokerage Coordinator Relationship Specialty Start Date End Date Afsaneh Fernandez, FINANCIAL REPORTING ANALYST.HEEL CURVER [address] [place] [address] [facility] Medicine 08/12/24 Shanel Newell, FINANCIAL REPORTING ANALYST.HEEL CURVER [address] [place] [address] Cardiology 12/15/24 Brokerage Coordinator Relationship Specialty Start Date End Date Donavon Escobedo Sr. [address] [place] [phone] PCP - General Internal Medicine 12/15/24 12/19/24 Afsaneh Fernandez, FINANCIAL REPORTING ANALYST.HEEL CURVER [address] [place] [address] Auto Body Builder Apprentice [facility] 08/12/24 Shanel Newell, FINANCIAL REPORTING ANALYST.HEEL CURVER [address] [place] [address] Cardiology 12/15/24 Brokerage Coordinator Relationship Specialty Start Date End Date Afsaneh Fernandez, FINANCIAL REPORTING ANALYST.HEEL CURVER [address] [place] [address] [employer] Builder Apprentice [facility] 08/12/24 Shanel Newell, FINANCIAL REPORTING ANALYST.HEEL CURVER [address] [place] [address] Cardiology 12/15/24 Brokerage Coordinator Relationship Specialty Start Date End Date Afsaneh Fernandez, FINANCIAL REPORTING ANALYST.HEEL CURVER [address] [place] [address] [employer] Builder Apprentice [facility] 08/12/24 Shanel Newell, FINANCIAL REPORTING ANALYST.HEEL CURVER [address] [place] [address] Cardiology 12/15/24 Team Status: Inactive Member Role Status Dates Dr. Alvina Sullivan MD Primary Care Provider Active Start: December 27, 2024 End: December 27, 2024 Donavon RUIZ MD Attending Provider Active S tart: December 27, 2024 End: December 27, 2024 Team Status: Inactive Member Role Status Dates Dr. Alvina Sullivan MD Primary Care Provider Active Start: January 01, 2025 End: January 01, 2025 Donavon RUIZ MD Attending Provider Active S tart: January 01, 2025 End: January 01, 2025 Team Status: Inactive Member Role Status Dates Dr. Alvina Sullivan MD Primary Care Provider Active Start: January 09, 2025 End: January 09, 2025 Donavon RUIZ MD Attending Provider Active S tart: January 09, 2025 End: January 09, 2025 Team Status: Inactive Member Role Status Dates Dr. Alvina Sullivan MD Primary Care Provider Active Start: January 15, 2025 End: January 15, 2025 Donavon RUIZ MD Attending Provider Active S tart: January 15, 2025 End: January 15, 2025 Team Status: Active Member Role Status Dates Dr. Alvina Sullivan MD Primary Care Provider Active Start: January 22, 2025 Donavon RUIZ MD Attending Provider Active S tart: January 22, 2025 Team Status: Active Member Role Status Dates Dr. Alvina Sullivan MD Primary Care Provider Active Start: January 30, 2025 Donavon RUIZ MD Attending Provider Active S tart: January 30, 2025 Brokerage Coordinator Relationship Specialty Start Date End Date Afsaneh Fernandez, FINANCIAL REPORTING ANALYST.HEEL CURVER [address] [place], [place] [address] [employer] Builder Apprentice Family Medicine 08/12/24 Shanel Newell, FINANCIAL REPORTING ANALYST.HEEL CURVER [address] [place] [address] Cardiology 12/15/24 Brokerage Coordinator Relationship Specialty Start Date End Date Donavon Escobedo Sr. [address] [place] [phone] PCP - General Internal Medicine 12/15/24 12/19/24 Olegario Sadler DO [address] [place] [address] Cardiology 08/16/23 12/14/24 Afsaneh Fernandez, RICH.HEEL CURVER [address] [place] [address] [employer] Builder Apprentice Family Medicine 08/12/24 Shanel Newell APRN.HEEL CURVER [address] [place] [address] Cardiology 12/15/24 Brokerage Coordinator Relationship Specialty Start Date End Date Afsaneh Fernandez, RICH.HEEL CURVER [address] [place] [address] [employer] Builder Apprentice Family Medicine 08/12/24 Shanel Newell, FINANCIAL REPORTING ANALYST.HEEL CURVER [address] [place] [address] Cardiology 12/15/24 Brokerage Coordinator Relationship Specialty Start Date End Date Afsaneh Fernandez APRN.HEEL CURVER [address] [place] [address] Auto [employer] Builder Apprentice Family Medicine 08/12/24 Shanel Newell APRN.HEEL CURVER [address] [place] [address] Cardiology 12/15/24 Active Administered Medications - up to 3 most recent administrations Administered Medications (un recognized section and content) Medication Order MAR Action Action Date Dose Rate Site cyanocobalamin 1,000 mcg injection 1,000 mcg, INTRAMUSCULAR, EVERY 1 MONTH, 13 doses, First dose on Wed10/30/22 at 1530, Last dose on Wed10/25/23 at 1530 Given 11/16/2023 2:04 PM EDT 1,000 mcg Ar m, Left Given 09/21/2023 10:55 AM EST 1,000 mcg A rm, Left Given 07/27/2023 2:39 PM EST 1,000 mcg De ltoid, Left Active Administered Medications - up to 3 most recent administrations Medication Order MAR Action Action Date Dose Rate Site cyanocobalamin 1,000 mcg injection 1,000 mcg, INTRAMUSCULAR, EVERY 4 WEEKS, 12 doses, First dose on Wed12/10/23 at 1030, Last dose on Wed10/13/24 at 1030 Given 12/14/2023 2:09 PM EDT 1,000 mcg Deltoid, Left Goals (unrecognized section and content) Goals may be documented in a n alternate sectionGoals may be documented in an alternate sectionGoals may be documented in an alternate sectionGoals may be documented in an alternate section FOR RECORDS PERTAINING TO PATIENTS WHO ARE OR HAVE BEEN ENROLLED IN A CHEMICAL DEPENDENCY/SUBSTANCEABUSE PROGRAM, SOME INFORMATION MAY BE OMITTED. This clinical summary was aggregated from multiple sources. Caution should be exercised in using it in the provision of clinical care. This summary normalizes information from multiple sources, and as a consequence, information in this document may materially change the coding, format and clinical context of patient data. In addition, data may be omitted in some cases. CLINICAL DECISIONS SHOULD BE BASED ON THE PRIMARY CLINICAL RECORDS. [facility] [employer] [facility] provides no warranty or guarantee of the accuracy or completeness of information in this document.
[2025-02-13 08:58] LABS: Hematocrit 29.5 % (37-47); Hemoglobin 9.1 g/dL (12.0-15.0); Mean Corp Hgb Conc 30.8 g/dL (32-36); Mean Corpuscular Hgb 25.9 pg (27.0-32.0); Mean Corpuscular Volume 83.8 fL (81-99); Mean Platelet Vol. 9.8 fl (6.2-12.0); Platelet Count 221 K/mm3 (150-450); RBC Distribution Width CV 19.7 % (11.6-14.6); RBC Distribution Width SD 60.8 fl (35.1-43.9); Red Blood Count 3.52 M/mm3 (4.2-5.4); White Blood Count 7.6 K/mm3 (4.4-11.0)
[2025-02-13 09:09] LABS: ALB/GLOB Ratio 0.8 RATIO (0.9-2.4); AST(SGOT) 37 U/L (<=31); Alanine Aminotransfer ALT/SGPT 14 U/L (<=34); Albumin, Serum 2.8 g/dL (3.4-4.8); Alkaline Phosphatase 255 U/L (35-104); Anion Gap 9 (5-15); BUN 13 mg/dL (4-19); BUN/Creat Ratio 20.4 RATIO (10-20); Calcium,Total 8.6 mg/dL (7.6-11.0); Carbon Dioxide 27.7 mmol/L (21.0-32.0); Chloride 103 mmol/L (98-108); Creatinine, Serum 0.62 mg/dL (0.70-1.20); EST Glomerular Filtration Rate 99 (>60); Globulin 3.6 g/dL (2.2-4.2); Glucose 104 mg/dL (70-99); Potassium 3.6 mmol/L (3.3-5.1); Protein, Total 6.4 g/dL (5.9-8.4); Sodium Level 139 mmol/L (133-145); Total Bilirubin 0.25 mg/dL (0.00-1.30)
== END ==
LOC: OLS.ACH2 05:00
PROVIDERS: PCP General Practice; Visit Provider Internal Medicine
DX: E66.811 Obesity, class 1 (principal); E11.49 Type 2 diabetes mellitus with other diabetic neurological complication
CPT/HCPCS: 36415; 80053; 85027

== ENCOUNTER → 2025-02-19 04:00 | Outpatient (REF) | payer OTHER, SELFPAY ==
[2025-02-19 10:30] LABS: Hematocrit 34.7 % (37-47); Hemoglobin 10.6 g/dL (12.0-15.0); Mean Corp Hgb Conc 30.5 g/dL (32-36); Mean Corpuscular Hgb 25.9 pg (27.0-32.0); Mean Corpuscular Volume 84.6 fL (81-99); Mean Platelet Vol. 9.9 fl (6.2-12.0); Platelet Count 252 K/mm3 (150-450); RBC Distribution Width CV 19.2 % (11.6-14.6); RBC Distribution Width SD 59.2 fl (35.1-43.9); White Blood Count 7.8 K/mm3 (4.4-11.0)
[2025-02-19 10:38] LABS: Anion Gap 9 (5-15); BUN 15 mg/dL (4-19); BUN/Creat Ratio 22.3 RATIO (10-20); Calcium,Total 9.2 mg/dL (7.6-11.0); Carbon Dioxide 29.3 mmol/L (21.0-32.0); Chloride 100 mmol/L (98-108); Creatinine, Serum 0.68 mg/dL (0.70-1.20); EST Glomerular Filtration Rate 97 (>60); Glucose 73 mg/dL (70-99); Potassium 3.9 mmol/L (3.3-5.1); Sodium Level 139 mmol/L (133-145)
== END ==
LOC: OLS.ACH2 04:00
PROVIDERS: PCP General Practice; Referring Provider Internal Medicine; Visit Provider Internal Medicine
DX: E11.622 Type 2 diabetes mellitus with other skin ulcer (principal); L98.499 Non-pressure chronic ulcer of skin of other sites with unspecified severity; Z85.42 Personal history of malignant neoplasm of other parts of uterus
CPT/HCPCS: 36415; 80048; 85027; 87493